=== PATIENT | female | born 1965 | race Caucasian/White ===

== ENCOUNTER 2023-04-14 10:56 | Outpatient (OUT) | payer OTHER, SELFPAY ==
--- NOTE | 2023-04-14 11:10 | MM_ITS ---
Patient: ALIYA CONDON Exam Date: 04/14/2023 : 1965 Gender:F Ordering : ENRIQUE Breayasmany [employer]j [employer] Admission #: [id number] Family : Order #: [id number] CLICK HERE TO VIEW EXAM RADIOLOGY REPORT PROCEDURE: MM TOMOSYNTHESIS SCREENING BI COMPARISON: MG MAMM SCREEN 3D EMY CAD, 04/29/2021. MG MAMM SCREEN 3D EMY CAD, 04/30/2022. INDICATIONS: Screening mammogram Z12.31 Calculator Name NCI Breast Cancer Risk Assessment Tool 5 Year Breast Cancer Risk 0.90% Lifetime Breast Cancer Risk 5.10% Personal Breast Cancer No Personal Ovarian Cancer No Treatments None Family Cancers None LOCATION: [facility] BREAST COMPOSITION: Almost entirely fatty. FINDINGS: DIAGNOSTIC CATEGORY 2--BENIGN FINDING. NO CHANGE FROM COMPARISON. Scattered benign-appearing nodules are present. Scattered benign-appearing calcifications are present. Scattered benign-appearing lymph nodes are present. RIGHT BREAST: No significant suspicious finding. LEFT BREAST: No significant suspicious finding. RECOMMENDATIONS: ROUTINE MAMMOGRAM AND CLINICAL EVALUATION IN 12 MONTHS. PLEASE NOTE: A NORMAL MAMMOGRAM DOES NOT EXCLUDE THE POSSIBILITY OF BREAST CANCER. A CLINICALLY SUSPICIOUS PALPABLE LUMP SHOULD BE BIOPSIED. Dictated by: Ant Ayoub MD on 04/14/2023 at 15:33 Approved by: Ant Ayoub MD on 04/14/2023 at 15:38
[2023-04-14 12:05] LABS: Estimated Average Glucose 114 mg/dL; Glycohemoglobin A1C 5.6 % (4.5-6.2)
[2023-04-14 12:11] LABS: Basophils Percent Auto 0.3 % (0.2-2.0); Eosinophils Absolute Auto 0.2 10^3/uL (0.0-0.7); Eosinophils Percent Auto 2.2 % (0.9-7.0); Hematocrit 42.9 % (36.0-48.0); Hemoglobin 14.1 g/dL (12.0-16.0); Immature Granulocytes Abs Auto 0.03 10^3/uL (0.00-0.03); Immature Granulocytes Pct Auto 0.3 % (0.0-0.5); Lymphocytes Absolute Auto 1.6 10^3/uL (1.2-3.8); Lymphocytes Percent Auto 18.6 % (20.5-60.0); Mean Corpuscular HGB Conc 32.9 g/dL (29.9-35.2); Mean Corpuscular Hemoglobin 29.4 pg (26.7-34.0); Mean Corpuscular Volume 89.6 fL (81.0-99.0); Mean Platelet Volume 12.1 fL (9.5-13.5); Monocytes Absolute Auto 0.7 10^3/uL (0.3-0.8); Monocytes Percent Auto 8.2 % (1.7-12.0); Neutrophils Absolute Auto 6.1 10^3/uL (1.4-6.5); Neutrophils Percent Auto 70.4 % (43.0-75.0); Platelet Count 201 10^3/uL (150-450); Red Blood Count 4.79 10^6/uL (4.20-5.40); Red Cell Distribution Width 15.2 % (11.0-15.0); White Blood Count 8.6 10^3/uL (4.0-11.0)
[2023-04-14 12:38] LABS: Microalbumin Urine Random <1.3 mg/dL (<=30.0)
[2023-04-14 12:42] LABS: Alanine Aminotransferase 26 U/L (14-59); Albumin Globulin Ratio 0.8; Albumin Level 3.7 g/dL (3.4-5.0); Alkaline Phosphatase 99 U/L (46-116); Aspartate Amino Transferase 24 U/L (15-37); BUN Creatinine Ratio 16.5; Bilirubin Total 0.3 mg/dL (0.2-1.0); Calcium 10.3 mg/dL (8.5-10.1); Carbon Dioxide 27.3 mmol/L (21.0-32.0); Chloride 99 mmol/L (98-107); Estimated GFR (African America >60 (>=60); Estimated GFR (Non-African Ame >60 (>=60); Globulin 4.9 g/dL; Glucose 117 mg/dL (74-106); Potassium 4.3 mmol/L (3.5-5.1); Sodium 136 mmol/L (136-145); Total Protein 8.6 g/dL (6.4-8.2)
[2023-04-14 12:48] LABS: Chol HDL Ratio 1.7; Cholesterol 125 mg/dL (<=200); HDL Cholesterol 74 mg/dL (40-60); Thyroid Stimulating Hormone 0.894 uIU/mL (0.358-3.740); Triglycerides 86 mg/dL (<=150); VLDL CHOLESTEROL 17.2 mg/dL
[2023-04-14 12:49] LABS: Bilirubin Urine NEGATIVE (NEGATIVE); Blood Urine NEGATIVE (NEGATIVE); Clarity Urine CLEAR (CLEAR); Color Urine LT. YELLOW (YELLOW); Glucose Urine UA NEGATIVE (NEGATIVE); Ketones Urine NEGATIVE (NEGATIVE); Leukocyte Esterase Urine NEGATIVE (NEGATIVE); Nitrite Urine NEGATIVE (NEGATIVE); Protein Urine NEGATIVE (NEG/TRACE); Urobilinogen Urine 0.2 EU/dL (0.2-1.0); pH Urine 5.5 (5.0-9.0)
[2023-04-14 13:04] LABS: Bacteria Urine NONE SEEN #/HPF (NONE SEEN); Cast Seen? NONE SEEN #/LPF (NONE SEEN); Crystals Seen? None Seen #/HPF (None Seen); Mucus Urine NONE SEEN (NONE SEEN); RBC Urine NONE SEEN #/HPF (0-2); Squamous Epithelial Cell Urine FEW #/LPF (NONE/RARE); WBC Urine NONE SEEN #/HPF (NONE SEEN)
== END 2023-04-14 10:57 ==
LOC: MAMMO 11:00
PROVIDERS: PCP Nurse Practitioner; Visit Provider Nurse Practitioner
DX: Z12.31 Encounter for screening mammogram for malignant neoplasm of breast (principal); E78.5 Hyperlipidemia, unspecified; E11.69 Type 2 diabetes mellitus with other specified complication; J44.9 Chronic obstructive pulmonary disease, unspecified; E66.9 Obesity, unspecified; F41.9 Anxiety disorder, unspecified
CPT/HCPCS: 36415; 77063; 77067; 80053; 80061; 81001; 82043; 83036; 84443; 85025

== ENCOUNTER 2023-04-27 08:48 | Outpatient (OUT) | payer OTHER, SELFPAY ==
--- NOTE | 2023-04-27 09:01 | XR_ITS ---
[address] [address] Patient Name: ALIYA CONDON MRN: [id number] date: 1965 Sex: F Assigned Patient Location: [facility] Current Patient Location: [facility] Accession/Order Number: [id number] Exam Date: 04/27/2023 09:10 Report Date: 04/27/2023 10:27 At the request of: LINK HAMEED Procedure: XR DEXA axial skeleton EXAMINATION: XR DEXA axial skeleton, 04/27/2023 9:10 AM EDT HISTORY: POST MENOPAUSAL Z78.0 COMPARISON: 2018. TECHNIQUE: Dual-energy X-ray absorptiometry (DEXA) bone density study performed for the axial skeleton. HISTORY: POST MENOPAUSAL Z78.0 FINDINGS: Bone mineral density AP spine L1-L4 measures 1.326 g/cm T score 1.0. WHO classification: Normal. Lowest bone mineral density right femoral trochanter measures 0.656 g/sq cm. T score -1.7. WHO classification: Osteopenia IMPRESSION: Osteopenia. Moderate fracture risk Electronically authenticated by: LEANA DAVIDSON Date: 04/27/2023 10:27
[2023-04-27 10:09] LABS: Alanine Aminotransferase 24 U/L (14-59); Albumin Globulin Ratio 0.7; Albumin Level 3.2 g/dL (3.4-5.0); Alkaline Phosphatase 90 U/L (46-116); Anion Gap 11.1; Aspartate Amino Transferase 17 U/L (15-37); BUN Creatinine Ratio 19.8; Bilirubin Total 0.3 mg/dL (0.2-1.0); Calcium 9.5 mg/dL (8.5-10.1); Chloride 99 mmol/L (98-107); Estimated GFR (African America >60 (>=60); Estimated GFR (Non-African Ame >60 (>=60); Globulin 4.4 g/dL; Glucose 135 mg/dL (74-106); Potassium 4.1 mmol/L (3.5-5.1); Sodium 136 mmol/L (136-145); Total Protein 7.6 g/dL (6.4-8.2)
[2023-04-28 11:09] LABS: PTH, Intact 24 pg/mL (15-65)
== END 2023-04-27 08:49 | disposition home or self-care (01) ==
LOC: RAD 08:49
PROVIDERS: PCP Nurse Practitioner; Visit Provider Nurse Practitioner
DX: E83.52 Hypercalcemia (principal); Z78.0 Asymptomatic menopausal state; M85.80 Other specified disorders of bone density and structure, unspecified site
CPT/HCPCS: 36415; 77080; 80053; 82306; 83970

== ENCOUNTER 2023-06-15 09:52 | Outpatient (OUT) | payer OTHER, SELFPAY | END 2023-06-15 09:53 | disposition home or self-care (01) | LOC: LAB 09:54 | PROVIDERS: PCP Nurse Practitioner; Visit Provider Internal Medicine | DX: J44.9 Chronic obstructive pulmonary disease, unspecified (principal) | CPT/HCPCS: 36415; 80198 ==

== ENCOUNTER 2023-08-24 12:07 | Emergency (ER) | payer OTHER, SELFPAY ==
[2023-08-24 12:23] VITALS: BP 122/67; PULSE 101; RESP 20; TEMP 37.4; O2SAT 94; BMI 37.2
--- NOTE | 2023-08-24 12:44 | XR_ITS ---
The [address] [address] Patient Name: ALIYA CONDON MRN: [id number] date: 1965 Sex: F Assigned Patient Location: ED.MAIN Current Patient Location: Accession/Order Number: [id number] Exam Date: 08/24/2023 13:22 Report Date: 08/24/2023 14:09 At the request of: BRAD VASQUEZ Procedure: XR knee standing BI EXAMINATION: XR knee standing BI HISTORY: left knee pain without injury COMPARISON: No relevant comparison available. FINDINGS: RIGHT FINDINGS: BONES: Marked narrowing of the anterior compartment with large periarticular degenerative osteophytes. Moderate narrowing of the medial compartment and mild lateral subluxation of the tibial plateau. No fracture or dislocation. SOFT TISSUES: Large calcifications cephalad to the patella and posterior to the lateral femoral condyle, suspected to be within the joint capsule. OTHER: No joint effusion. LEFT FINDINGS: BONES: Marked narrowing of the anterior and lateral joint spaces with [id number]-yd-[id number] articulation. Lateral subluxation of the tibial plateau in relation to the femoral condyles. No fracture. Small calcifications, possibly bone islands within the distal femoral diaphysis. SOFT TISSUES: Calcifications within the joint capsule OTHER: Large joint effusion. XR/XR knee standing BI IMPRESSION: RIGHT CONCLUSION: 1. Marked degenerative joint disease and large soft tissue calcifications suspected to be within the joint capsule. MRI should be considered for further evaluation. LEFT CONCLUSION: 1. Marked degenerative joint disease enlarged with effusion. MRI should be considered for further evaluation. Electronically authenticated by: MIGUEL MEDEROS Date: 08/24/2023 14:09
--- NOTE | 2023-08-24 12:45 | ED_ITS ---
HPI - Extremity Problem General Chief complaint: Extremity Problem, Nontraumatic Stated complaint: LOWER EXTREMITY PAIN LEFT LEG Time Seen by Provider: 08/24/23 12:21 Source: patient Mode of arrival: Wheelchair Limitations: no limitations History of Present Illness HPI Narrative: yesterday the patient woke with pain and swelling in the left knee. It worsened since then and now the patient is having difficulty standing and walking due to the pain. No injury. She told me that she has bad arthritis and that she developed a blood clot in the lungs in April. She takes blood thinners so they took her off of her anti-inflammatory arthritis medication. She denied any change in activity that might account for the pain. She has swelling of the left knee and pain radiating throughout the joint and into the popliteal area but no lower leg swelling or calf tenderness or popiteal mass/fullness. Related Data Previous Rx's Medication Instructions Recorded tramadol 50 mg tablet 50 mg PO TID PRN pain #14 tabs 08/24/23 Allergies Allergy/AdvReac Type Severity Reaction Status Date / Time No Known Drug Allergies Allergy Verified 08/24/23 12:27 PFSH PFSH Social History Smoking status: Former smoker Exam Narrative Exam Narrative: Nurses notes and vital signs reviewed and patient is not hypoxic. afebrile General: Well-appearing and in no apparent distress. Skin: Warm, dry, no pallor noted. No left LE rash. Cardiovascular: Normal peripheral perfusion. Respiratory: No accessory muscle use or respiratory distress. Lungs are clear to auscultation, no wheezing, rales or rhonchi Musculoskeletal: LEFT KNEE - swelling/effusion with tenderness throughout the left knee and decreased ROM secondary to pain. knee is stable. No erythema or warmth. Left foot and ankle with normal ROM, no calf tenderness, no lower leg edema/swelling Neurological: A&O x4. No cranial nerve dysfunction observed. No truncal ataxia. Moves all extremities. Sensation intact. Psychiatric: Cooperative and interactive. Normal mood and affect. Constitutional Vital Signs, click to edit/add: Last Vital Signs Temp 99.4 F 08/24/23 12:23 Pulse 101 H 08/24/23 12:23 Resp 20 08/24/23 12:23 BP 122/67 08/24/23 12:23 Pulse Ox 94 L 08/24/23 12:23 O2 Del Method Room Air 08/24/23 12:23 Course Vital Signs Vital signs: Vital Signs Temperature 99.4 F 08/24/23 12:23 Pulse Rate 101 H 08/24/23 12:23 Respiratory Rate 20 08/24/23 12:23 Blood Pressure 122/67 08/24/23 12:23 Pulse Oximetry 94 L 08/24/23 12:23 Oxygen Delivery Method Room Air 08/24/23 12:23 Temperature 99.4 F 08/24/23 12:23 Pulse Rate 101 H 08/24/23 12:23 Respiratory Rate 20 08/24/23 12:23 Blood Pressure 122/67 08/24/23 12:23 Pulse Oximetry 94 L 08/24/23 12:23 Oxygen Delivery Method Room Air 08/24/23 12:23 MDM - Extremity (Nontraumatic) MDM Narrative Medical decision making narrative: Weight bearing xrays of the knees obtained, per request of our [facility] orthopedist for patients with atraumatic joint pain. Patient has marked arthritic changes. She was given IM Solumedrol in the ED and will be discharged home with pain meds - ultram - and referral to Dr Berkowitz for follow up. . Imaging Data xr knee: Radiologist's impression: Patient Name: ALIYA CONDON MRN: [facility]:[id number] date: 1965 Sex: F Assigned Patient Location: ED.MAIN Current Patient Location: Accession/Order Number: [id number] Exam Date: 08/24/2023 13:22 Report Date: 08/24/2023 14:09 At the request of: BRAD VASQUEZ Procedure: XR knee standing BI EXAMINATION: XR knee standing BI HISTORY: left knee pain without injury COMPARISON: No relevant comparison available. FINDINGS: RIGHT FINDINGS: BONES: Marked narrowing of the anterior compartment with large periarticular degenerative osteophytes. Moderate narrowing of the medial compartment and mild lateral subluxation of the tibial plateau. No fracture or dislocation. SOFT TISSUES: Large calcifications cephalad to the patella and posterior to the lateral femoral condyle, suspected to be within the joint capsule. OTHER: No joint effusion. LEFT FINDINGS: BONES: Marked narrowing of the anterior and lateral joint spaces with [id number] articulation. Lateral subluxation of the tibial plateau in relation to the femoral condyles. No fracture. Small calcifications, possibly bone islands within the distal femoral diaphysis. SOFT TISSUES: Calcifications within the joint capsule OTHER: Large joint effusion. IMPRESSION: RIGHT CONCLUSION: 1. Marked degenerative joint disease and large soft tissue calcifications suspected to be within the joint capsule. MRI should be considered for further evaluation. LEFT CONCLUSION: 1. Marked degenerative joint disease enlarged with effusion. MRI should be considered for further evaluation. Electronically authenticated by: PAPITO MEDEROS Date: 08/24/2023 14:09 Discharge Plan Discharge Chief Complaint: Extremity Problem, Nontraumatic Clinical Impression: Acute knee pain, Knee osteoarthritis Patient Disposition: Home, Self-Care Time of Disposition Decision: 14:34 Prescriptions / Home Meds: New tramadol 50 mg tablet 50 mg PO TID PRN (Reason: pain) Qty: 14 0RF Instructions: Knee Pain (ED), Arthralgia (ED) Stand Alone Forms: Portal Instructions Referrals: Papito Berkowitz MD [Physician] - 08/29/23 8:30 am
[2023-08-24] MEDS: METHYLPREDNISOLONE SOD SUCC PF 125 MG/2 ML VIAL IM (12:53)
== END 2023-08-24 14:48 | disposition home or self-care (01) ==
PROVIDERS: Emergency Provider Emergency Medicine; PCP Nurse Practitioner
DX: M25.562 Pain in left knee (principal); M17.0 Bilateral primary osteoarthritis of knee; Z87.891 Personal history of nicotine dependence
CPT/HCPCS: 73565; 96372; 99284; J2930

== ENCOUNTER 2023-10-26 14:28 | Outpatient (OUT) | payer OTHER, SELFPAY ==
[2023-10-26 15:57] LABS: Estimated Average Glucose 117 mg/dL; Glycohemoglobin A1C 5.7 % (4.5-6.2)
== END 2023-10-26 14:29 | disposition home or self-care (01) ==
LOC: LAB 14:29
PROVIDERS: PCP Nurse Practitioner; Visit Provider Nurse Practitioner
DX: E11.9 Type 2 diabetes mellitus without complications (principal)
CPT/HCPCS: 36415; 83036

== ENCOUNTER 2023-10-31 07:48 | Emergency (ER) | payer OTHER, SELFPAY ==
[2023-10-31 07:52] VITALS: BP 140/80; PULSE 104; RESP 20; TEMP 36.6; O2SAT 95; BMI 36.9
--- OUTSIDE RECORDS SUMMARY | 2023-10-31 08:21 | XMS_ITS | CCD ---
Author Name Unknown Address [address] [place] [address] Organization [facility] Care Team Providers Care Social Sciences Lecturer Name Role Phone TOSHIA SAM Attending Unavailable TOSHIA SAM Admitting Unavailable SELF, REFERRED Referring Unavailable SELF, REFERRED Primary Care Unavailable AICHHOLZ, STRIPPER SOFT PLASTIC LINK Primary Care Unavailable SAMSA ., CORRINA Consulting Unavailable SAMSA ., CORRINA Admitting Unavailable SAMSA ., CORRINA Attending Unavailable AICHHOLZ, STRIPPER SOFT PLASTIC LINK Attending Unavailable AICHHOLZ, STRIPPER SOFT PLASTIC LINK Consulting Unavailable AICHHOLZ, STRIPPER SOFT PLASTIC LINK Primary Care Unavailable AICHHOLZ, STRIPPER SOFT PLASTIC LINK Admitting Unavailable AICHHOLZ, STRIPPER SOFT PLASTIC LINK Primary Care Unavailable DR MIGUEL MEDEROS Consulting Unavailable SAMSA ., CORRINA Admitting Unavailable SAMSA ., CORRINA Attending Unavailable SAMSA ., CORRINA Consulting Unavailable SAMSA ., CORRINA Attending Unavailable SAMSA ., CORRINA Consulting Unavailable SAMSA ., CORRINA Admitting Unavailable AICHHOLZ, STRIPPER SOFT PLASTIC LINK Primary Care Unavailable AICHHOLZ, STRIPPER SOFT PLASTIC LINK Attending Unavailable DR LEANA AYOUB V Consulting Unavailable AICHHOLZ, STRIPPER SOFT PLASTIC LINK Primary Care Unavailable AICHHOLZ, STRIPPER SOFT PLASTIC LINK Admitting Unavailable AICHHOLZ, STRIPPER SOFT PLASTIC LINK Consulting Unavailable PAY ., DR SALAZAR Admitting Unavailable PAY ., DR SALAZAR Attending Unavailable PAY ., DR SALAZAR Consulting Unavailable AICHHOLZ, STRIPPER SOFT PLASTIC LINK Primary Care Unavailable QUETA .JUAN Consulting Unavailsrinivas e Rastealla, Justine Consulting Unavailable AICHHOLZ, STRIPPER SOFT PLASTIC LINK Primary Care Unavailable PAY ., DR SALAZAR Attending Unavailable PAY ., DR SALAZAR Admitting Unavailable JUAN JOHNSON Consulting Unavailabl e POLICARO, KENDY Consulting Unavailable ZARI, ENRIQUE MAZA Attending Unavailable ZARI, ENRIQUE LINK Consulting Unavailable ZARI, STRIPPER SOFT PLASTIC LINK Primary Care Unavailable ZARI, ENRIQUE MAZA Admitting Unavailable LINK HAMEED Primary Care Physician [phone] SPENCERMisael HASTINGShanie Unavailable TOSHIA SAM Attending Unavailable MARLENE SOTO Attending Unavailable Roby Bob Admitting Unavailabl e Al-MarRoby mohr Attending Unavailabl e OJUKWJoss, Mbanefo Admitting Unavailable OJUKWU Mbanefo Attending Unavailable Ramses Hair Attending Unavailable Moses Fischer Attending Unavailable Al-Roby Ortez Attending Unavailabl e OJUKWJoss, Mbanefo Referring Unavailable Roby Bob Attending Unavailabl e Allergies Allergy Classification Reported Allergen(s) Allergy Type Date of Onset Reaction(s) Facility (1 source) No Known Medication Allergies; Translations: [No Known Medication Allergies] Propensity to adverse reactions (disorder) [facility] Repository Medications Current Medications Medication Drug Class(es) Dates Sig (Normalized) Sig (Original) albuterol 0.833 mg/ml / ipratropium bromide 0.167 mg/ml inhalation solution (5 sources) Anticholinergic, beta2-Adrenergic Agonist Start: 06-17-2023 take 3 mL by inhalation four times daily albuterol-ipratro pium Inh [place] 3 mL UD 3 mL, Inhalation, QID, 60 EA, Refill(s) 0 Start Date: 06/17/23 Status: Ordered apixaban 5 mg oral tablet (9 sources) Factor Xa Inhibitor Start: 06-28-2023 take 1 tablet by mouth twice daily Eliquis 5 mg oral tablet 5 mg = 1 tab(s), Oral, BID, # 180 tab(s), Refills(s) 3, Pharmacy: [facility], 175, cm, 06/28/23 10:58:00 EDT, Height/Length Dosing, 114.6, kg, 06/28/23 10:58:00 EDT, Weight Dosing Start Date: 06/28/23 Status: Ordered Start: 06-17-2023 take 2 tablets by mo uth twice daily, then take 1 tablet by mouth twice daily Eliquis 5 mg oral tablet See Instructions, 2 tab(s) Oral BID x 6 days then 1 tab oral BID x 30 days, # 84 tab(s), Refills(s) 0 Start Date: 06/17/23 Status: Ordered aspirin 81 mg oral tablet (5 sources) Platelet Aggregation Inhibitor, Nonsteroidal Anti-inflammatory Drug Start: 06-17-2023 Aspirin Low Dose 81 mg oral enteric coated tablet Refills(s) 0 Start Date: 06/17/23 Status: Ordered atorvastatin (5 sources) HMG-CoA Reductase Inhibitor Start: 06-17-2023 ATORVASTATIN CALCIUM 40 MG TABLET ATORVASTATIN CALCIUM 40 MG TABLET Start Date: 06/17/23 Status: Ordered busPIRone hydrochloride 15 mg oral tablet (5 sources) Start: 06-17-2023 take 1 tablet by mouth three times daily busPIRone 15 mg Tab 15 mg = 1 tab(s), Oral, TID, # 90 tab(s), Refills(s) 0 Start Date: 06/17/23 Status: Ordered Daily Harvinder oral tablet (5 sources) Start: 06-17-2023 Daily Harvinder oral tablet 1 tab(s), Oral, Daily, 30 tab(s), Refill(s) 0 Start Date: 06/17/23 Status: Ordered dicyclomine hydrochloride 10 mg oral capsule (1 source) Anticholinergic Start: 09-25-2023 End: 10-02-2023 take 1 capsule by mouth four times daily Bentyl 10 mg Cap 10 mg = 1 cap(s), Oral, QID, X 7 day(s), # 28 cap(s), Refills(s) 0, Pharmacy: [facility], 175, cm, 09/25/23 18:25:00 EST, Height/Length Dosing, 121, kg, 09/25/23 18:25:00 EST, Weight Dosing Start Date: 09/25/23 Stop Date: 10/02/23 Status: Ordered DULoxetine 60 mg delayed release oral capsule (5 sources) Serotonin and Norepinephrine Reuptake Inhibitor Start: 06-17-2023 duloxetine 60 mg oral delayed release capsule Refills(s) 0 Start Date: 06/17/23 Status: Ordered fluticasone propionate 0.05 mg/actuat metered dose nasal spray (10 sources) Corticosteroid Start: 06-17-2023 take 2 puff(s) by inhalation twice daily Flovent HFA 110 Aerosol = 2 puff(s), Inhalation, BID, # 12 gram, Refills(s) 0 Start Date: 06/17/23 Status: Ordered Start: 06-17-2023 fluticasone Na margaret 0.05 mg/inh [place] 2 spray(s), Nasal, Daily, 16 gram, Refill(s) 0, each nostril Start Date: 06/17/23 Status: Ordered 120 actuat formoterol fumarate 0.0048 mg/actuat / glycopyrrolate 0.009 mg/actuat metered dose inhaler (5 sources) beta2-Adrenergic Agonist Start: 06-17-2023 take 2 puff(s) by inhalation twice daily Bevespi Aerosphere 9 mcg-4.8 mcg/inh inhalation aerosol 2 puff(s), Inhalation, BID, Refill(s) 11 Start Date: 06/17/23 Status: Ordered furosemide 20 mg oral tablet (5 sources) Loop Diuretic Start: 06-17-2023 take 1 tablet by mouth once daily furosemide 20 mg Tab 20 mg = 1 tab(s), Oral, Daily, # 30 tab(s), Refills(s) 0 Start Date: 06/17/23 Status: Ordered gabapentin 300 mg oral capsule (5 sources) Anti-epileptic Agent Start: 06-17-2023 take 1 capsule by mouth twice daily gabapentin 300 mg Cap 300 mg = 1 cap(s), Oral, BID, # 60 cap(s), Refills(s) 0 Start Date: 06/17/23 Status: Ordered hydroCHLOROthiazide 25 mg / lisinopril 20 mg oral tablet (5 sources) Thiazide Diuretic, Angiotensin Converting Enzyme Inhibitor Start: 06-17-2023 hydrochlorothia zide-lisinopril 25 mg-20 mg Tab 1 tab(s), Oral, Daily, 30 tab(s), Refill(s) 0 Start Date: 06/17/23 Status: Ordered lamoTRIgine 25 mg oral tablet (5 sources) Mood Stabilizer, Anti-epileptic Agent Start: 06-17-2023 take 1 tablet by mouth twice daily lamotrigine 25 mg Tab 25 mg = 1 tab(s), Oral, BID, # 60 tab(s), Refills(s) 0 Start Date: 06/17/23 Status: Ordered pioglitazone 15 mg oral tablet (5 sources) Peroxisome Proliferator Receptor alpha Agonist, Peroxisome Proliferator Receptor gamma Agonist, Thiazolidinedione Start: 06-17-2023 take 1 tablet by mouth once daily pioglitazone 15 mg Tab 15 mg = 1 tab(s), Oral, Daily, # 30 tab(s), Refills(s) 0 Start Date: 06/17/23 Status: Ordered Potassium Chloride (5 sources) Start: 06-17-2023 Potassium Chloride (Nri-Ucnm-Gak 10) 10 mEq oral tablet, extended release Refills(s) 0 Start Date: 06/17/23 Status: Ordered pramipexole dihydrochloride 0.5 mg oral tablet (5 sources) Nonergot Dopamine Agonist Start: 06-17-2023 take 1 tablet by mouth three times daily pramipexole 0.5 mg oral tablet 0.5 mg = 1 tab(s), Oral, TID, # 270 tab(s), Refills(s) 0 Start Date: 06/17/23 Status: Ordered theophylline 300 mg extended release oral tablet (5 sources) Methylxanthine Start: 06-17-2023 take 1 tablet by mouth every twelve hours theophylline 300 mg ER Tab 300 mg = 1 tab(s), Oral, q12hr, # 60 tab(s), Refills(s) 0 Start Date: 06/17/23 Status: Ordered traZODone hydrochloride 50 mg oral tablet (5 sources) Serotonin Reuptake Inhibitor Start: 06-17-2023 take 1 tablet by mouth once daily at bedtime traZODONE 50 mg Tab 50 mg = 1 tab(s), Oral, Once a day (at bedtime), # 30 tab(s), Refills(s) 0 Start Date: 06/17/23 Status: Ordered Ventolin HFA 90 mcg/inh Aerosol-Adpt (5 sources) Start: 06-17-2023 take 1 puff(s) by inhalation four times daily for wheezing Ventolin HFA 90 mcg/inh Aerosol-Adpt 1 puff(s), Inhalation, QID for wheezing, 18 gram, Refill(s) 0 Start Date: 06/17/23 Status: Ordered Zofran ODT 4 mg Tab-Dis (1 source) Start: 09-25-2023 take 1 tablet by mouth every eight hours Ana Maria ODT 4 mg Tab-Dis 4 mg = 1 tab(s), Oral, q8hr, # 12 tab(s), Refills(s) 0, [facility]acy: [facility], 175, cm, 09/25/23 18:25:00 EST, Height/Length Dosing, 121, kg, 09/25/23 18:25:00 EST, Weight Dosing Start Date: 09/25/23 Status: Ordered Completed/Discontinued Medications Medication Drug Class(es) Dates Sig (Normalized) Sig (Original) Insulin Lispro (1 source) Insulin Analog Start: 06-17-2023 End: 06-17-2023 Insulin Lispro Sliding Scale 0-10 Unit(s), Injection-Insulin, SubCutaneous, Start date 06/17/23 7:30:00 EDT Start Date: 06/17/23 Stop Date: 06/17/23 Status: Completed lisinopril 20 mg oral tablet (1 source) Angiotensin Converting Enzyme Inhibitor Start: 06-17-2023 End: 06-17-2023 lisinopril 20 mg Tab 20 mg = 1 tab(s), Tab, Oral, Start date 06/17/23 9:00:00 EDT, 06/17/23 7:57:00 EDT Start Date: 06/17/23 Stop Date: 06/17/23 Status: Completed Problems Active Problems Problem Classification Problem Date Documented Date Episodic/Chronic Abdominal pain (5 sources) Epigastric pain; Translations: [Unspecified abdominal pain] Onset: 03-26-2022 Episodic Anxiety disorders (1 source) Generalized anxiety disorder; Translations: [GENERALIZED ANXIETY DISORDER] Onset: 03-31-2022 Chronic Biliary tract disease (1 source) Cholelithiasis without obstruction; Translations: [Calculus of gallbladder without cholecystitis without obstruction] Onset: 09-25-2023 Episodic Cardiac and circulatory congenital anomalies (2 sources) Malformation of coronary vessels; Translations: [Malformation of coronary vessels] Onset: 12-24-2022 Chronic Cardiac dysrhythmias (1 source) Tachyarrhythmia ; Translations: [Tachycardia, unspecified] Onset: 06-16-2023 Episodic Chronic obstructive pulmonary disease and bronchiectasis (7 sources) Chronic obstructive pulmonary disease with (acute) exacerbation; Translations: [Chronic obstructive pulmonary disease, unspecified] Onset: 01-21-2023 Chronic Diabetes mellitus with complications (4 sources) Type 2 diabetes mellitus with other specified complication; Translations: [TYPE 2 DM W/OTHER SPEC COMPLICATION] Onset: 01-03-2023 Chronic Diabetes mellitus without complication (1 source) Type 2 diabetes mellitus without complication; Translations: [Type 2 diabetes mellitus without complications] Onset: 06-16-2023 Chronic Disorders of lipid metabolism (2 sources) Mixed hyperlipidemia; Translations: [Hyperlipidemia, unspecified] Onset: 03-31-2022 Chronic Essential hypertension (2 sources) Essential (primary) hypertension; Translations: [Essential hypertension] Onset: 02-26-2023 Chronic Mood disorders (1 source) Depressive disorder; Translations: [Depression, unspecified] Onset: 06-16-2023 Chronic Nausea and vomiting (1 source) Nausea and vomiting; Translations: [Nausea with vomiting, unspecified] Onset: 09-25-2023 Episodic Nonspecific chest pain (2 sources) Chest pain; Translations: [Chest pain, unspecified] Onset: 06-16-2023 Episodic Other aftercare (1 source) FPC (current) use of aspirin; Translations: [TRAINING CONSULTANT CURRENT USE OF ASPIRIN] Onset: 02-26-2023 Episodic Other aftercare (1 source) Other halfway (current) drug therapy; Translations: [OTH TRAINING CONSULTANT CURRENT DRUG THERAPY] Onset: 02-26-2023 Episodic Other aftercare (1 source) Long-term current use of drug therapy; Translations: [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] Onset: 06-16-2023 Episodic Other hereditary and degenerative nervous system conditions (1 source) Restless legs syndrome; Translations: [RESTLESS LEGS SYNDROME] Onset: 02-26-2023 Chronic Other lower respiratory disease (4 sources) Shortness of breath; Translations: [SHORTNESS OF BREATH] Onset: 02-23-2023 Episodic Other nutritional; endocrine; and metabolic disorders (1 source) Obesity, unspecified; Translations: [OBESITY UNSPECIFIED] Onset: 03-31-2022 Chronic Other nutritional; endocrine; and metabolic disorders (1 source) Body mass index (BMI) 40.0-44.9, adult; Translations: [BODY MASS INDEX BMI 40.0-44.9 ADULT] Onset: 03-31-2022 Chronic Other nutritional; endocrine; and metabolic disorders (1 source) Obesity; Translations: [Obesity, unspecified] Onset: 06-16-2023 Chronic Pulmonary heart disease (1 source) Other pulmonary embolism without acute cor pulmonale; Translations: [Other pulmonary embolism without acute cor pulmonale] Onset: 06-16-2023 Episodic Respiratory failure; insufficiency; arrest (adult) (3 sources) Dependence on supplemental oxygen; Translations: [Chronic respiratory failure with hypoxia] Onset: 02-05-2023 Chronic Screening and history of mental health and substance abuse codes (5 sources) Personal history of nicotine dependence; Translations: [PERSONAL HISTORY OF NICOTINE DEPEND] Onset: 03-31-2022 Episodic Substance-related disorders (7 sources) Nicotine dependence, cigarettes, uncomplicated; Translations: [Nicotine dependence] Onset: 02-26-2023 Chronic Comment on above: Added secondary to d ocumentation in Social History. Past or Other Problems Problem Classification Problem Date Documented Da te Episodic/Chronic Other aftercare (4 sources) Encounter for therapeutic drug level monitoring; Translations: [ENC THERAPEUTC DRUG LEVL MONITORING] Onset: 11-04-2022 Episodic Other screening for suspected conditions (not mental disorders or infectious disease) (4 sources) Encounter for screening mammogram for malignant neoplasm of breast; Translations: [ENC SCR MAMMO MALIG NEOPLASM BREAST] Onset: 04-30-2022 Episodic Residual codes; unclassified (2 sources) Edema, unspecified; Translations: [Edema, unspecified] Onset: 12-24-2022 Episodic Results Test Name Value Interpretation Reference Range Facility Prescriptions/Work Noteson 1 12-14-2022 Prescriptions/Work Notes [id number]# 1.00TIFF Normal [facility] CT Abdomen/Pelvis w/ Contras ton 09-26-2023 CT Abdomen/Pelvis w/ Contrast Exam Date/Time: 09/25/2023 20:23 EST Reason for Exam: Abdominal pain, acute, nonlocalized;Other (please specify) Report IMPRESSION: NO ACUTE ABDOMINOPELVIC PROCESS. CHOLELITHIASIS. HEPATOMEGALY. EXAM: CT Abdomen/Pelvis w/ Contrast History: Abdominal pain. Nausea and vomiting. Technique: Multiple contiguous axial images were obtained of the abdomen and pelvis from the level of the lung bases through the ischial tuberosities with contrast. Multiplanar reformats were obtained. Delayed images were obtained. Comparison: None available. Findings: Bilateral lung base scarring and/or atelectasis The liver is mildly enlarged measuring approximately 20 cm in craniocaudal length. A few tiny gallstones are present within the physiologically distended gallbladder. No gallbladder wall thickening or pericholecystic fluid. Unchanged small bilateral adrenal nodules. The spleen, stomach, and pancreas are within normal limits. The kidneys enhance uniformly. Simple cyst 3.5 cm right renal cyst. No urinary tract calculi or hydronephrosis. Urinary bladder is well distended. Uterus is present. Abdominal aorta is nonaneurysmal. Atherosclerotic calcification of the abdominal aorta. No retroperitoneal or abdominal/pelvic lymphadenopathy. No small bowel obstruction. No overt colonic mass or pericolonic inflammation. No findings of acute appendicitis. No free fluid or free air. Tiny fat containing periumbilical hernia. No acute osseous abnormality. Degenerative changes of the spine. All CT scans at this facility use dose modulation, iterative reconstruction, and/or weight based dosing when appropriate to reduce radiation dose to as low as reasonably Report achievable. Ordering Provider: Moses Fischer FINAL REPORT Dictated: 09/26/2023 9:23 am Vincenzo Colvin DO Signed (Electronic Signature): 09/26/2023 9:23 am Signed by: Vincenzo Colvin DO Transcribed by: NOHEMY Technologist: VIN Technical Comments GFR (mL/min/1/73m2) 74 Contrast: Isovue 300 Contrast amount in ml's: 100 Normal [facility] Discharge Instructionson Discharge Instructions [id number]# 1.00TIFF Normal [facility] Monitor Recordon 09-26-2023 Monitor Record [id number]# 1.00TIFF Normal [facility] UA With Cult Reflexon 2022 Bilirubin Ql (U) Negative Normal Negative [facility] Comment on above: Performed By: #### 2 [id number], 6265739, 52576748, 28343585, 6582796, 2394435, 36355347, [id number] #### [facility] [address] [place] [address] Clarity (U) CLEAR Normal Clear [facility] Comment on above: Performed By: #### 2 907647, 3431422, 35912048, 60260883, 2848922, 2006951, 46133911, 95264309 #### [facility] [address] [place] [address] Color (U) YELLOW Normal Yellow [facility] Comment on above: Performed By: #### 2 135555, 8154378, 04363583, 70787654, 7333570, 6314286, 38223117, 85081607 #### [facility] [address] [place] [address] Epithelial cells.squamous LM.HPF (Urine sed) [#/Area] 0-2 Normal 0-[address] [facility] Comment on above: Performed By: #### 2 232558, 9045508, 01006405, 34933834, 0030869, 6686221, 36052773, 03091230 #### [facility] [address] [place] [address] Glucose Test strip (U) [Mass/Vol] Negative Normal Negative [facility] Comment on above: Performed By: #### 2 900760, 1993955, 61331751, 05182203, 9153945, 0697512, 02913251, 39897696 #### [facility] [address] [place] [address] Hemoglobin Ql (U) Negative Normal Negative [facility] Comment on above: Performed By: #### 2 880264, 9253362, 99498026, 09082221, 2353889, 2957899, 20313285, 93321953 #### [facility] [address] [place] [address] Ketones (U) [Mass/Vol] Negative Normal Negative Fi [facility] Comment on above: Performed By: #### 2 743344, 5040944, 82803774, 20224953, 5835896, 1630378, 22182457, 12951211 #### [facility] [address] [place] [address] [place].plasma/[place] .RBC (Bld) [Mass ratio] 0-3 Normal 0-3 [facility] Comment on above: Performed By: #### 2 900647, 3223947, 05878514, 01190840, 2576116, 2173460, 27794937, 76406585 #### [facility] [address] [place] [address] Nitrite Ql (U) Negative Normal Negative [facility] Comment on above: Performed By: #### 2 415130, 9197611, 63050487, 65153877, 7976122, 8081920, 88907796, 91788937 #### [facility] [address] [place] [address] pH (U) 6.5 [pH] Invalid Interpretation Code 5.0-9.0 [facility] Comment on above: Performed By: #### 2 464214, 4720785, 63466613, 27975299, 8197524, 5194652, 57176210, 45446871 #### [facility] [address] [place] [address] Protein (U) [Mass/Vol] Negative Normal Negative [facility] Comment on above: Performed By: #### 2 527086, 5392745, 62059580, 59608265, 5607898, 2293730, 94764588, 70100974 #### [facility] [address] [place] [address] Specific gravity (U) [Rel density] <=1.005 Invalid Interpretation Code 1.005-1.030 [facility] Comment on above: Performed By: #### 2 264525, 8558107, 30443382, 27454106, 4004028, 9355504, 50792339, 80808814 #### [facility] [address] [place] [address] Type of Urine collection method Clean Catch Normal [facility] Comment on above: Performed By: #### 2 371557, 0163783, 61313100, 61351905, 1393420, 0083187, 76803527, 12095061 #### [facility] [address] [place] [address] Urobilinogen Qn (U) 0.2 {Nayla'U}/dL Normal 0.0-1.0 [facility] Comment on above: Performed By: #### 2 731610, 7115653, 40255681, 30692936, 2966021, 8100684, 15156630, 29718825 #### [facility] [address] [place] [address] WBC Auto Ql (U) Negative Normal Negative [facility] Comment on above: Performed By: #### 2 112458, 7935141, 04344462, 02495590, 0757007, 1441471, 13380863, 42743223 #### [facility] [address] [place] [address] WBC LM.HPF (Urine sed) [#/Area] 0-5 Normal 0-5 [facility] Comment on above: Performed By: #### 2 551582, 3842008, 36521831, 19999705, 6434283, 0559416, 40678417, 99016815 #### [facility] [address] [place] [address] Auto Diffon 09-25-2023 Basophils/100 WBC (Bld) 0.6 % Normal 0.0-2.0 [facility] Comment on above: Order Comment: Order Added by Discern Expert. Performed By: #### 2 402279, 8009983, 22285204, 2992933, 4378854, 1199748 ####[facility] [address] [place] [address] Basophils/Leukocytes Auto (Bld) [Pure # fraction] 0.1 E9/L Normal 0.0-0.2 [facility] Comment on above: Order Comment: Order Added by Discern Expert. Performed By: #### 2 419291, 6547607, 56038553, 7780129, 0392867, 0755499 ####[facility] [address] [place] [address] Eosinophils/100 WBC (Bld) 1.5 % Normal 0.0-8.0 [facility] Comment on above: Order Comment: Order Added by Discern Expert. Performed By: #### 2 067332, 6642292, 80032663, 9681717, 4992264, 6937723 ####[address] [place] [address] Eosinophils/Leukocytes Auto (Bld) [Pure # fraction] 0.1 E9/L Normal 0.0-0.5 [facility] Comment on above: Order Comment: Order Added by Quinton Expert. Performed By: #### 2 256967, 3246260, 29120841, 7596594, 8584137, 8972994 ####[address] [place] [address] Lymphocytes/100 WBC (Bld) 15.3 % Normal 14.0-50.0 [facility] Comment on above: Order Comment: Order Added by Quinton Expert. Performed By: #### 2 297607, 5679431, 72435228, 3643851, 7872826, 4437608 ####[address] [place] [address] Lymphocytes/Leukocytes Auto (Bld) [Pure # fraction] 1.5 E9/L Normal 1.0-4.0 [facility] Comment on above: Order Comment: Order Added by Quinton Expert. Performed By: #### 2 487009, 4189362, 01630837, 9769323, 2632714, 9163647 ####[address] [place] [address] Monocytes/100 WBC (Bld) 7.4 % Normal 4.0-14.0 [facility] Comment on above: Order Comment: Order Added by Quinton Expert. Performed By: #### 2 654403, 7281209, 65007180, 1702427, 7534150, 5223122 ####[address] [place] [address] Monocytes/Leukocytes Auto (Bld) [Pure # fraction] 0.7 E9/L Normal 0.2-1.0 [facility] Comment on above: Order Comment: Order Added by Discern Expert. Performed By: #### 2 710101, 3626299, 50132545, 0886622, 4839737, 1771691 ####[address] [place] [address] Neutrophils/100 WBC (Bld) 75.2 % High 36.0-75.0 [facility] Comment on above: Order Comment: Order Added by Discern Expert. Performed By: #### 2 507802, 3048321, 21470729, 0744083, 8328966, 5791474 ####[address] [address] Neutrophils/Leukocytes Auto (Bld) [Pure # fraction] 7.1 E9/L Normal 2.0-7.5 [facility] Comment on above: Order Comment: Order Added by Discern Expert. Performed By: #### 2 923908, 5597928, 84797849, 6276928, 6209123, 4811015 ####[address] [place] [address] BMPon 09-25-2023 Creatinine [Mass/Vol] 0.9 mg/dL Normal 0.5-1.3 [facility] Comment on above: Performed By: #### 2 368650, 9740995, 57852782, 8965743, 0054534, 0765952 ####[address] [place] [address] Urea nitrogen [Mass/Vol] 20 mg/dL Normal 5-21 [facility] Comment on above: Performed By: #### 2 145130, 2093686, 03289510, 7541951, 6590155, 6851285 ####[address] [place] [address] Urea nitrogen/Creatinine [Mass ratio] 22 No Units High 10-20 [facility] Comment on above: Performed By: #### 2 874822, 3813162, 30920303, 8956712, 8415786, 9192787 ####[facility] [address] [place] [address] Anion gap [Moles/Vol] 10 mmol/L Normal 6-16 [facility] Comment on above: Performed By: #### 2 070805, 2391153, 71346212, 6686909, 4043387, 2433848 ####[facility] [address] [place] [address] Calcium [Mass/Vol] 10.4 mg/dL Normal 8.9-11.1 [facility] Comment on above: Performed By: #### 2 572035, 7689636, 25160118, 0805391, 4609418, 6548660 ####[facility] [address] [place] [address] Chloride [Moles/Vol] 101 mmol/L Normal 101-111 [facility] Comment on above: Performed By: #### 2 462106, 4176770, 86267171, 7068320, 6077350, 3802424 ####[facility] [address] [place] [address] CO2 [Moles/Vol] 27 mmol/L Normal 21-31 [facility] Comment on above: Performed By: #### 2 509851, 3643461, 21674255, 1855545, 7127098, 8978060 ####[facility] [address] [place] [address] Glucose [Mass/Vol] 155 mg/dL Normal 55-199 [facility] Comment on above: Result Comment: If t his glucose result represents a fasting glucose, interpretation should refer to the following reference range: 55-99 mg/dL Performed By: #### 2 008358, 8845265, 01384349, 8262916, 6924214, 0604473 ####[facility] [address] [place] [address] Potassium [Moles/Vol] 4.0 mmol/L Normal 3.5-5.3 [facility] Comment on above: Performed By: #### 2 065601, 1456111, 81176356, 9543091, 6383148, 6160603 ####[facility] [address] [place] [address] Sodium [Moles/Vol] 134 mmol/L Low 135-145 [facility] Comment on above: Performed By: #### 2 042191, 4974530, 60239313, 3016095, 7242262, 0233533 ####[address] [address] CBC w/ Auto Diffon Erythrocyte distribution width (RBC) [Ratio] 15.3 % High 10.9-14.2 [facility] Comment on above: Performed By: #### 2 930162, 9295614, 34109848, 2255592, 1999934, 4965292 ####[address] [place] [address] Hematocrit (Bld) [Volume fraction] 38.4 % Normal 34.0-46.0 [facility] Comment on above: Performed By: #### 2 009888, 9721740, 62912740, 1252767, 8694461, 6777550 ####[address] [place] [address] Hemoglobin (Bld) [Mass/Vol] 13.0 g/dL Normal 12.0-16.0 [facility] Comment on above: Performed By: #### 2 747793, 3407666, 35516644, 0337554, 4182290, 2189812 ####[address] [place] [address] MCH (RBC) [Entitic mass] 29.4 pg Normal 27.0-34.0 [facility] Comment on above: Performed By: #### 2 967275, 6541633, 03403028, 3754239, 3944277, 3540339 ####[address] [place] [address] MCHC (RBC) [Mass/Vol] 33.9 g/dL Normal 31.4-36.0 [facility] Comment on above: Performed By: #### 2 026625, 6974597, 86787928, 2486511, 6904815, 9990936 ####[address] [address] MCV (RBC) [Entitic vol] 86.6 fL Normal 80.0-100.0 [facility] Comment on above: Performed By: #### 2 062997, 5276464, 03009342, 2372232, 0144586, 0030155 ####[address] [address] Platelet mean volume (Bld) [Entitic vol] 9.5 fL Normal 6.4-10.8 [facility] Comment on above: Performed By: #### 2 371756, 0988715, 01144493, 0480615, 2039985, 4322932 ####[address] [address] Platelets (Bld) [#/Vol] 207.0 E9/L Normal 150.0-500.0 [facility] Comment on above: Performed By: #### 2 349150, 6628912, 71329090, 3963778, 9797196, 9253136 ####[address] [address] RBC (Bld) [#/Vol] 4.4 E12/L Normal 4.3-5.9 [facility] Comment on above: Performed By: #### 2 879750, 9540090, 04526848, 3312298, 1748431, 6968080 ####[address] [address] WBC corrected for nucl RBC Auto (Bld) [#/Vol] 9.5 E9/L Normal 4.0-11.0 [facility] Comment on above: Performed By: #### 2 889982, 0464385, 99462517, 5919504, 5343647, 0648443 ####[facility] [address] [place] [address] CHEMISTRYOrdered By: SYSTEM SYSTEM on 09-25-2023 Albumin [Mass/Vol] 3.9 g/dL Normal 3.3 - 5.0 gm/dL [facility] Albumin/Globulin [Mass ratio] 1.0 {ratio} Low 1.1 - 2.2 [facility] ALP [Catalytic activity/Vol] 66 [iU]/d Normal 21 - 98 Int._Unit/L [facility] ALT No additional P-5'-P [Catalytic activity/Vol] 25 [iU]/d Normal 6 - 46 Int._Unit/L [facility] Anion gap [Moles/Vol] 10 mmol/L Normal 6 - 16 mEq/L [facility] AST [Catalytic activity/Vol] 25 [iU]/d Normal 5 - 43 Int._Unit/L [facility] Bilirubin [Mass/Vol] 0.2 mg/dL Normal 0.0 - 1 .1 mg/dL [facility] Bilirubin.direct [Mass/Vol] 0.1 mg/dL Normal 0.1 - 0.4 mg/dL [facility] Bilirubin.indirect [Mass or moles/Vol] 0.1 mg/dL Normal 0.1 - 0.9 mg/dL [facility] Calcium [Mass/Vol] 10.4 mg/dL Normal 8.9 - 11. 1 mg/dL [facility] Chloride [Moles/Vol] 101 mmol/L Normal 101 - 1 11 mmol/L [facility] CO2 [Moles/Vol] 27 mmol/L Normal 21 - 31 mmol/L [facility] Creatinine [Mass/Vol] 0.9 mg/dL Normal 0.5 - 1.3 mg/dL [facility] GFR/1.73 sq M.predicted among non-blacks MDRD (S/P/Bld) [Vol rate/Area] 74 mL/min/1.73 m2 Normal >=59mL/min/1 .73 m2 [facility] Comment on above: Interpretive Data: C hronic kidney disease could be indicated at eGFR's of less than 60 mL/min/1.73m2. Kidney failure is indicated at less than 15 mL/min/1.73m2. Globulin (S) [Mass/Vol] 4.0 g/dL Normal 1.4 - 4.0 gm/dL [facility] Glucose [Mass/Vol] 155 mg/dL Normal 55 - 199 mg/dL [facility] Comment on above: Interpretive Data: I f this glucose result represents a fasting glucose, interpretation should refer to the following reference range: 55-99 mg/dL Lipase [Catalytic activity/Vol] 39 U/L Normal 13 - 58 unit/L [facility] Potassium [Moles/Vol] 4.0 mmol/L Normal 3.5 - 5.3 mmol/L [facility] Protein [Mass/Vol] 7.9 g/dL High 6.0 - 7.8 gm/dL [facility] Sodium [Moles/Vol] 134 mmol/L Low 135 - 145 mmol/L [facility] Urea nitrogen [Mass/Vol] 20 mg/dL Normal 5 - 21 mg/dL [facility] Remisol Urea nitrogen/Creatinine [Mass ratio] 22 mg/mg High 10 - 20 [facility] Consent for Treatmenton 09-01 Consent for Treatment [id number] Normal [facility] ED Clinical Summaryon 2022 ED Clinical Summary [address] [place] [id number] ED Clinical Summary Person Information Name: SIS MOORE [place] Age: 57 Years : 1965 Sex: Female Language: Citizen Of [place] PCP: LINK HAMEED CNP Marital Status: Visit Id: Visit Reason: Vomiting; Nausea; Abdominal pain; STOMACH PAIN, NOSE BLEED - ON THINNERS Speciality: Acuity: 3 Enc Type: Emergency Med Service: Emergency Arrival: 09/25/2023 18:09:44 Discharge: 09/25/2023 21:57:36 LOS: 000 03:48 Checkin: 09/25/2023 18:09:44 Checkout: 09/25/2023 21:57:36 Dispo Type: Home (Routine DC) EVENTS: Event Name Event Status Request Date/Time Start Date/Time Complete Date/Time Arrive Complete 09/25/2023 18:09:44 09/25/2023 18:09:44 09/25/2023 18:09:44 Document Home Meds Request 09/25/2023 18:09:44 Triage Complete 09/25/2023 18:09:44 09/25/2023 18:25:42 09/25/2023 18:25:42 Registration Complete 09/25/2023 18:12:44 09/25/2023 18:12:44 09/25/2023 18:12:44 Reg Complete Request 09/25/2023 18:12:44 Reg Bed Request Complete 09/25/2023 18:12:44 09/25/2023 18:12:44 09/25/2023 18:12:44 Pending Labs Collected 09/25/2023 18:26:14 Lab Collected 09/25/2023 18:26:14 Urine Collect Collected 09/25/2023 18:26:14 Bed Assign Complete 09/25/2023 18:36:59 09/25/2023 18:36:59 09/25/2023 18:36:59 Dr Exam Complete 09/25/2023 18:36:59 09/25/2023 19:14:21 09/25/2023 19:14:21 RN Exam Complete 09/25/2023 18:36:59 09/25/2023 19:13:49 09/25/2023 19:13:49 Pending Labs Complete 09/25/2023 18:54:11 09/25/2023 18:54:11 09/25/2023 18:54:18 Lab Complete 09/25/2023 18:54:11 09/25/2023 18:54:11 09/25/2023 18:54:18 Pending Labs Complete 09/25/2023 18:54:39 09/25/2023 18:54:39 09/25/2023 19:10:00 Lab Complete 09/25/2023 18:54:39 09/25/2023 18:54:39 09/25/2023 19:10:00 Registration Request 09/25/2023 19:14:21 Meds Admin Complete 09/25/2023 19:34:29 09/25/2023 19:59:13 CT Complete 09/25/2023 19:34:29 09/25/2023 20:00:56 09/25/2023 20:23:48 Meds Admin Request 09/25/2023 19:49:07 Discharge Complete 09/25/2023 21:47:29 09/25/2023 21:57:44 09/25/2023 21:57:44 Transfer Complete 09/25/2023 21:57:44 09/25/2023 21:57:44 09/25/2023 21:57:44 ADDRESS: [address] [place] [address] [address] [facility] [phone] PHYS DOC NOTES: MEDICAL INFORMATION: Prescriptions Given: [facility], [address] [place], [place] [id number], [phone] dicyclomine (Bentyl 10 mg Cap) 1 Capsules By Mouth 4 times a day for 7 Days. Refills: 0. ondansetron (Zofran ODT 4 mg Tab-Dis) 1 Tablets By Mouth every 8 hours. Refills: 0. Medications to Continue with No Changes Other Medications albuterol (Ventolin HFA 90 mcg/inh Aerosol-Adpt) 1 Puffs Inhalation 4 times a day as needed for wheezing. albuterol-ipratropium (albuterol-ipratropiu m Inh Debby 3 mL UD) 3 Milliliter Inhalation 4 times a day. apixaban (Eliquis 5 mg oral tablet) 2 tab(s) Oral BID x 6 days then 1 tab oral BID x 30 days. Refills: 0. apixaban (Eliquis 5 mg oral tablet) 1 Tablets By Mouth 2 times a day. Refills: 3. aspirin (Aspirin Low Dose 81 mg oral enteric coated tablet) busPIRone (busPIRone 15 mg Tab) 1 Tablets By Mouth 3 times a day. duloxetine (duloxetine 60 mg oral delayed release capsule) fluticasone (Flovent HFA 110 Aerosol) 2 Puffs Inhalation 2 times a day. fluticasone nasal (fluticasone Nasal 0.05 mg/inh [place]) 2 Sprays Nasal Inhalation every day. each nostril. formoterol-glycopyrro late (Bevespi Aerosphere 9 mcg-4.8 mcg/inh inhalation aerosol) 2 Puffs Inhalation 2 times a day. furosemide (furosemide 20 mg Tab) 1 Tablets By Mouth every day. gabapentin (gabapentin 300 mg Cap) 1 Capsules By Mouth 2 times a day. hydrochlorothiazide-l isinopril (hydrochlorothiazide- lisinopril 25 mg-20 mg Tab) 1 Tablets By Mouth every day. lamotrigine (lamotrigine 25 mg Tab) 1 Tablets By Mouth 2 times a day. Misc Prescription (ATORVASTATIN CALCIUM 40 MG TABLET) 0. multivitamin (Daily Harvinder oral tablet) 1 Tablets By Mouth every day. pioglitazone (pioglitazone 15 mg Tab) 1 Tablets By Mouth every day. potassium chloride (Potassium Chloride (Dvu-Uluz-Rzb 10) 10 mEq oral tablet, extended release) pramipexole (pramipexole 0.5 mg oral tablet) 1 Tablets By Mouth 3 times a day. theophylline (theophylline 300 mg ER Tab) 1 Tablets By Mouth every 12 hours. trazodone (traZODONE 50 mg Tab) 1 Tablets By Mouth once a day (at bedtime). PATIENT EDUCATION INFORMATION: Instructions: Cholelithiasis Follow up: With: Address: When: [facility] [address] [place] [address] 3, [address], [address] [place] [address] [phone] Business (1) In 3 days 09/28/2023 With: Address: When: [facility] [address] [place], [place] [phone] Business (1) In 3 days DIAGNOSIS: AP (abdominal pain); Cholelithiasis; N&V (nausea and vomiting) Normal [facility] ED Note-Physicianon 09-25-20 23 ED Note-Physician Basic Information Time Seen: Moses Fischer DO 09/25/2023 19:14 Chief Complaint pt c\o abd pain and NV x2 hours History of Present Illness HPI: Patient is a 57-year-old female past medical history of COPD on oxygen, PE on Eliquis, and CHF who presents the ED for abdominal pain nausea and vomiting. Patient states this for started 2 hours ago and has been constant. The pain is across her upper abdomen and does not radiate. She has now developed nausea and several episodes of nonbloody emesis. She denies any change in bowel movements. She denies any urinary symptoms. She denies any fevers that she is aware of. She has never had abdominal pain like this in the past. ROS: Pertinent review of systems conducted and is negative except as noted above. Physical exam: General: nontoxic appearing and in no distress HEENT: Mucous membranes moist Neuro: awake and alert Neck: supple, trachea midline Card: Heart regular rate and rhythm no murmur Resp: Lungs clear to auscultation no wheeze or rhonchi Abd: Soft and nondistended. Tenderness in bilateral upper quadrants worse on the right. No rebound or guarding. Ext: No gross deformity or edema Physical Exam Vitals & Measurements T: 36.8 ?C(Oral) HR: 111(Peripheral) RR: 24 BP: 163/75 SpO2: 97% HT: 175 cm WT: 121 kg BMI: 39.51 Medical Decision Making MEDICAL DECISION MAKING Number and Complexity of Problems Differential Diagnosis: [] [facility] Data External documents reviewed: N/A My EKG interpretation: Noted in chart if applicable My CT interpretation: N/A My X-ray interpretation: Noted in chart if applicable My Ultrasound interpretation: N/A Decision rules/scores evaluated: N/A Discussed with: N/A Treatment and Disposition ED Course: Patient is nontoxic-appearing in no distress. She does have some upper abdominal pain that is worse in the right upper quadrant. Will obtain a CT of the abdomen pelvis as well as blood work and urinalysis. Patient was given a dose of morphine and Zofran for symptoms. Blood work is overall reassuring. The CT of the abdomen and pelvis is significant for distended gallbladder with multiple tiny stones. There is a tiny fat-containing umbilical hernia. Small adrenal nodules. On my reexamination patient is feeling much better after the medications. We discussed the diagnosis of cholelithiasis. We discussed dietary modification and we will give her a prescription for Zofran and Bentyl. We will give further information for the surgery clinic should she have continuing symptoms. Will also have her follow-up with her primary care physician. Patient states understanding agreement this plan was discharged stable condition. Shared decision making: As above Code status: N/A Assessment/Plan AP (abdominal pain) (R10.9: Unspecified abdominal pain) Cholelithiasis (K80.20: Calculus of gallbladder without cholecystitis without obstruction) N&V (nausea and vomiting) (R11.2: Nausea with vomiting, unspecified) Orders: dicyclomine, 10 mg = 1 cap(s), Oral, QID, X 7 day(s), # 28 cap(s), Refills(s) 0, Pharmacy: [facility], 175, cm, 09/25/23 18:25:00 EST, Height/Length Dosing, 121, kg, 09/25/23 18:25:00 EST, Weight Dosing morphine, 4 mg = 1 mL, Injection, IV Push, Once, Stop date 09/25/23 19:34:00 EST, STAT, Start date 09/25/23 19:34:00 EST, 09/25/23 19:34:00 EST ondansetron, 4 mg = 2 mL, Injection, IV Push, Once, Stop date 09/25/23 19:33:00 EST, STAT, Start date 09/25/23 19:33:00 EST, 09/25/23 19:33:00 EST ondansetron, 4 mg = 1 tab(s), Oral, q8hr, # 12 tab(s), Refills(s) 0, Pharmacy: [facility], 175, cm, 09/25/23 18:25:00 EST, Height/Length Dosing, 121, kg, 09/25/23 18:25:00 EST, Weight Dosing Sodium Chloride 0.9% intravenous solution 500 mL, 500 mL, IV, 500 mL/hr, STAT, Start date 09/25/23 19:49:00 EST, 1 hour(s), Total volume (mL): 500, Bolus Dose: 500 mL, 121 kg, 2.43, m2 CT Abdomen/Pelvis w/ Contrast Medications Administered Given Sodium Chloride 0.9% IV Debby 500 mL 500 mL, 500 mL, IV morphine 4 mg/mL Inj, 4 mg, IV Push Zofran 4 mg/2 mL Injection, 4 mg, IV Push Disposition Plan Discharge Prescription List Prescriptions Bentyl 10 mg Cap, 10 mg= 1 cap(s), Oral, QID Zofran ODT 4 mg Tab-Dis, 4 mg= 1 tab(s), Oral, q8hr Follow-up With When Contact Information Trauma Clinic In 3 days 09/28/2023 EST [address] [facility] 3, [address]nd Floor, [address] [place] [phone] Business (1) Additional Instructions: [facility] In 3 days [address] [place] [phone] Business (1) Additional Instructions: Patient Education Cholelithiasis Problem List/Past Medical History Ongoing Smoker Historical No qualifying data Procedure/Surgical History delivery (05/05/1987), delivery (06/20/1984), Cyst, Knee. Medications Inpatient morphine 4 mg/mL Inj, 4 mg= 1 mL, IV Push, Once Zofran 4 mg/2 mL Injection, 4 mg= 2 mL, IV Push, Once Home albuterol- (more content not included)... Normal [facility] Comment on above: Result Comment: Elec tronically Signed By: Moses Fischer DO\.br\Date and Time Signed: 09/25/23 21:52 EST ED Patient Education Noteon 09-25-2023 ED Patient Education Note Gastroenterology Cholelithiasis Cholelithiasis is a disease in which gallstones form in the gallbladder. The gallbladder is an organ that stores bile. Bile is a fluid that helps to digest fats. Gallstones begin as small crystals and can slowly grow into stones. They may cause no symptoms until they block the gallbladder duct, or cystic duct, when the gallbladder tightens (contracts) after food is eaten. This can cause pain and is known as a gallbladder attack, or biliary colic. There are two main types of gallstones: ? Cholesterol stones. These are the most common type of gallstone. These stones are made of hardened cholesterol and are usually yellow-green in color. Cholesterol is a fat-like substance that is made in the liver. ? Pigment stones. These are dark in color and are made of a red-yellow substance, called bilirubin,that forms when hemoglobin from red blood cells breaks down. What are the causes? This condition may be caused by an imbalance in the different parts that make bile. This can happen if the bile: ? Has too much bilirubin. This can happen in certain blood diseases, such as sickle cell anemia. ? Has too much cholesterol. ? Does not have enough bile salts. These salts help the body absorb and digest fats. In some cases, this condition can also be caused by the gallbladder not emptying completely or often enough. This is common during . What increases the risk? The following factors may make you more likely to develop this condition: ? Being female. ? Having multiple pregnancies. Health care providers sometimes advise removing diseased gallbladders before future pregnancies. ? Eating a diet that is heavy in fried foods, fat, and refined carbohydrates, such as white bread and white rice. ? Being obese. ? Being older than age 40. ? Using medicines that contain female hormones (estrogen) for a long time. ? Losing weight quickly. ? Having a family history of gallstones. ? Having certain medical problems, such as: ? Diabetes mellitus. ? Cystic fibrosis. ? Crohn's disease. ? Cirrhosis or other long-term (chronic) liver disease. ? Certain blood diseases, such as sickle cell anemia or leukemia. What are the signs or symptoms? In many cases, having gallstones causes no symptoms. When you have gallstones but do not have symptoms, you have silent gallstones. If a gallstone blocks your bile duct, it can cause a gallbladder attack. The main symptom of a gallbladder attack is sudden pain in the upper right part of the abdomen. The pain: ? Usually comes at night or after eating. ? Can last for one hour or more. ? Can spread to your right shoulder, back, or chest. ? Can feel like indigestion. This is discomfort, burning, or fullness in your upper abdomen. If the bile duct is blocked for more than a few hours, it can cause an infection or inflammation of your gallbladder (cholecystitis), liver, or pancreas. This can cause: ? Nausea or vomiting. ? Bloating. ? Pain in your abdomen that lasts for 5 hours or longer. ? Tenderness in your upper abdomen, often in the upper right section and under your rib cage. ? Fever or chills. ? Skin or the white parts of your eyes turning yellow (jaundice). This usually happens when a stone has blocked bile from passing through the common bile duct. ? Dark urine or light-colored stools. How is this diagnosed? This condition may be diagnosed based on: ? A physical exam. ? Your medical history. ? Ultrasound. ? CT scan. ? MRI. You may also have other tests, including: ? Blood tests to check for signs of an infection or inflammation. ? Cholescintigraphy, or HIDA scan. This is a scan of your gallbladder and bile ducts (biliary system) using non-harmful radioactive material and special cameras that can see the radioactive material. ? Endoscopic retrograde cholangiopancreatogra m. This involves inserting a small tube with a camera on the end (endoscope) through your mouth to look at bile ducts and check for blockages. How is this treated? Treatment for this condition depends on the severity of the condition. Silent gallstones do not need treatment. Treatment may be needed if a blockage causes a gallbladder attack or other symptoms. Treatment may include: ? Home care, if symptoms are not severe. ? During a simple gallbladder attack, stop eating and drinking for 12?24 hours (except for water and clear liquids). This helps to cool down your gallbladder. After 1 or 2 days, you can start to eat a diet of simple or clear foods, such as broths and crackers. ? You may also need medicines for pain or nausea or both. ? If you have cholecystitis and an infection, you will need antibiotics. ? A hospital stay, if needed for pain control or for cholecystitis with severe infection. ? Cholecystectomy, or surgery to remove your gallbladder. This is the most common treatment if all other treatments have not worked. ? Medicines to break (more content not included)... Normal [facility] ED Patient Summaryon 023 ED Patient Summary [place] [id number] Patient Discharge Instructions Person Information Name: SIS MOORE Age: 57 Years Arrival Date: 09/25/2023 18:09:44 Discharge Diagnosis: AP (abdominal pain); Cholelithiasis; N&V (nausea and vomiting) Primary Care Physician: LINK HAMEED CNP Provider Information Primary Provider: Moses Fischer DO Advanced Data Capture Clerk:None The exam and treatment you received in the Emergency Department were for an urgent problem and are not intended as complete care. It is important that you follow up with a doctor, nurse practitioner, or physician?s zoning assistant for ongoing care. If your symptoms become worse or you do not improve as expected and you are unable to reach your usual health care provider, you should return to the Emergency Department. We are available 24 hours a day. SIS MOORE has been given the following list of patient education materials, prescriptions and follow-up instructions: Follow-up Instructions: With: Address: When: [facility] [address] [facility] [address], [address] [place] [phone] Business (1) In 3 days 09/28/2023 With: Address: When: [facility] [address] [place], [place] [phone] Business (1) In 3 days In the event that this physician does not participate in your insurance network, please consult with your insurance company to find a nearby participating provider. Patient Education Materials: Cholelithiasis A MESSAGE TO ALL PATIENTS REGARDING OPIOIDS PRESCRIPTION OPIOIDS: WHAT YOU NEED TO KNOW Prescription opioids can be used to help relieve jwpxkqqu-xs-xufqdy pain and are often prescribed following a surgery or injury, or for certain health conditions. These medications can be an important part of the treatment but also come with serious risks. It is important to work with your healthcare provider to make sure you are getting the safest, most effective care. WHAT ARE THE RISKS AND SIDE EFFECTS OF OPIOID USE? Prescription opioids carry serious risks of addiction and overdose, especially with prolonged use. An opioid overdose, often marked by slowed breathing, can cause sudden . The use of prescription opioids can have a number of side effects as well, even when taken as directed: ? Tolerance?meaning you might need to take more of the medication for the same pain relief ? Physical dependence?meaning you have symptoms of withdrawal when a medication is stopped ? Increased sensitivity to pain ? Constipation ? Nausea, vomiting, and dry mouth ? Sleepiness and dizziness ? Confusion ? Depression ? Low levels of testosterone that can result in lower sex drive, energy, and strength ? Itching and sweating RISKS ARE GREATER WITH: ? History of drug misuse, substance use disorder, or overdose ? Mental health conditions (such as depression or anxiety) ? Sleep apnea ? Older age (65 years and older) ? Avoid alcohol while taking prescription opioids. Also, unless specifically advised by your health care provider, medications to avoid include: ? Benzodiazepines (such as Xanax or Valium) ? Muscle relaxants (such as Soma or Flexeril) ? Hypnotics (such as Ambien or Lunesta) ? Other prescription opioids KNOW YOUR OPTIONS Talk to your health care provider about ways to manage your pain that don?t involve prescription opioids. Some of these options may actually work better and have fewer risks and side effects. Options may include: ? Pain relievers such as acetaminophen, ibuprofen, and naproxen ? Some medication that are also used for depression or seizures ? Physical therapy and exercise ? Cognitive behavioral therapy, a psychological, goal-directed approach, in which patients learn how to modify physical, behavioral, and emotional triggers of pain and stress. IF YOU ARE PRESCRIBED OPIOIDS FOR PAIN: ? Never take opioids in greater amounts or more often than prescribed. ? Follow up with your primary health care provider. o Work together to create a plan on how to manage your pain. o Talk about ways to help manage your pain that don?t involve prescription opioids. o Talk about any and all concerns and side effects. ? Help prevent misuse and abuse o Never sell or share prescription opioids. o Never use another person?s prescription opioids. ? Store prescription opioids in a secure place and out of reach of others (this may include visitors, children, friends, and family). ? Safely dispose of unused prescription opioids: Find your community drug take-back program or your pharmacy mail-back program, or flush them down the toilet, following guidance from the Food and Drug Administration (www.fda.gov/Drugs/Re sourcesForYou). ? Visit www.cdc.gov/drugoverd ose to learn about the risks of opioids abuse and overdos (more content not included)... Normal [facility] HEMATOLOGYOrdered By: SYSTEM SYSTEM on 09-25-2023 Basophils/100 WBC (Bld) 0.6 % Normal 0.0 - 2.0 % [facility] HemeAutoSS Basophils/Leukocytes Auto (Bld) [Pure # fraction] 0.1 E9/L Normal 0.0 - 0.2 E9/L [facility] HemeAutoSS Eosinophils/100 WBC (Bld) 1.5 % Normal 0.0 - 8.0 % [facility] HemeAutoSS Eosinophils/Leukocytes Auto (Bld) [Pure # fraction] 0.1 E9/L Normal 0.0 - 0.5 E9/L [facility] HemeAutoSS Lymphocytes/100 WBC (Bld) 15.3 % Normal 14.0 - 50.0 % [facility] HemeAutoSS Lymphocytes/Leukocytes Auto (Bld) [Pure # fraction] 1.5 E9/L Normal 1.0 - 4.0 E9/L [facility] HemeAutoSS Monocytes/100 WBC (Bld) 7.4 % Normal 4.0 - 14.0 % [facility] HemeAutoSS Monocytes/Leukocytes Auto (Bld) [Pure # fraction] 0.7 E9/L Normal 0.2 - 1.0 E9/L [facility] HemeAutoSS Neutrophils/100 WBC (Bld) 75.2 % High 36.0 - 75.0 % [facility] HemeAutoSS Neutrophils/Leukocytes Auto (Bld) [Pure # fraction] 7.1 E9/L Normal 2.0 - 7.5 E9/L [facility] HemeAutoSS HEMATOLOGYOrdered By: Rula Sanders on 09-25-2023 Erythrocyte distribution width (RBC) [Ratio] 15.3 % High 10.9 - 14.2 % [facility] HemeAutoSS Hematocrit (Bld) [Volume fraction] 38.4 % Normal 34.0 - 46.0 % [facility] HemeAutoSS Hemoglobin (Bld) [Mass/Vol] 13.0 g/dL Normal 12.0 - 16.0 gm/dL [facility] HemeAutoSS MCH (RBC) [Entitic mass] 29.4 pg Normal 27.0 - 34.0 pg [facility] HemeAutoSS MCHC (RBC) [Mass/Vol] 33.9 g/dL Normal 31.4 - 36.0 gm/dL [facility] HemeAutoSS MCV (RBC) [Entitic vol] 86.6 fL Normal 80.0 - 100.0 fL [facility] HemeAutoSS Platelet mean volume (Bld) [Entitic vol] 9.5 fL Normal 6.4 - 10.8 fL [facility] HemeAutoSS Platelets (Bld) [#/Vol] 207.0 E9/L Normal 150.0 - 500.0 E9/L [facility] HemeAutoSS RBC (Bld) [#/Vol] 4.4 E12/L Normal 4.3 - 5.9 E12/L [facility] HemeAutoSS WBC corrected for nucl RBC Auto (Bld) [#/Vol] 9.5 E9/L Normal 4.0 - 11.0 E9/L [facility] HemeAutoSS Hep Func Panelon 09-25-2023 Albumin [Mass/Vol] 3.9 g/dL Normal 3.3-5.0 [facility] Comment on above: Performed By: #### 2 390279, 3546234, 75271334, 6291960, 7428268, 6658109 ####[facility] [address] [place] [address] Albumin/Globulin (S) [Mass conc ratio] 1.0 Low 1.1-2.2 [facility] Comment on above: Performed By: #### 2 552419, 0168026, 58893279, 8132894, 7790274, 3902699 ####[facility] [address] [place] [address] ALP [Catalytic activity/Vol] 66 Int._Unit/L Normal 21-98 [facility] Comment on above: Performed By: #### 2 964558, 7607579, 83439025, 0358608, 5993190, 0518604 ####[facility] [address] [place] [address] ALT No additional P-5'-P [Catalytic activity/Vol] 25 Int._Unit/L Normal 6-46 [facility] Comment on above: Performed By: #### 2 248581, 9213790, 70783433, 6071241, 3720323, 7719636 ####[facility] [address] [place] [address] AST [Catalytic activity/Vol] 25 Int._Unit/L Normal 5-43 [facility] Comment on above: Performed By: #### 2 288199, 3481837, 63818252, 1749595, 3397930, 3422052 ####[facility] [address] [place] [address] Bilirubin [Mass/Vol] 0.2 mg/dL Normal 0.0-1.1 [facility] Comment on above: Performed By: #### 2 396077, 7556085, 84502810, 0689876, 3597288, 5147384 ####[address] [place] [address] Bilirubin.direct [Mass/Vol] 0.1 mg/dL Normal 0.1-0.4 [facility] Comment on above: Performed By: #### 2 465880, 7967862, 99339978, 9065976, 7843879, 6798616 ####[address] [address] Bilirubin.indirect [Mass or moles/Vol] 0.1 mg/dL Normal 0.1-0.9 [facility] Comment on above: Performed By: #### 2 675462, 3345038, 41293408, 9543607, 3175292, 9500764 ####[address] [address] Globulin (S) [Mass/Vol] 4.0 g/dL Normal 1.4-4.0 [facility] Comment on above: Performed By: #### 2 443146, 3606746, 95394736, 4849461, 5119949, 2491739 ####[address] [address] Protein [Mass/Vol] 7.9 g/dL High 6.0-7.8 [facility] Comment on above: Performed By: #### 2 181769, 8224019, 68888283, 0000108, 6220130, 3895020 ####[address] [place] [address] Lipase Levelon 09-25-2023 Lipase [Catalytic activity/Vol] 39 U/L Normal 13-58 [facility] Comment on above: Performed By: #### 2 665764, 7963438, 32165650, 1186398, 9455207, 6142484 ####[address] [place] [address] RAD - Preliminary Cat Scan R lizet 09-25-2023 RAD - Preliminary Cat Scan Report [id number]# 1.00TIFF Normal [facility] URINALYSISOrdered By: Tanya Nathan on 09-25-2023 Bilirubin Ql (U) Negative (09/25/23 9:53 PM) Normal Negative [facility] UA Auto SS Clarity (U) Clear (09/25/23 9:53 PM) Normal Clear [facility] UA Auto SS Color (U) Yellow (09/25/23 9:53 PM) Normal Yellow [facility] UA Auto SS Epithelial cells.squamous LM.HPF (Urine sed) [#/Area] 0-2 /HPF Normal 0-2/HPF [facility] UA Aut o SS Glucose Test strip (U) [Mass/Vol] Negative (09/25/23 9:53 PM) Normal Negative [facility] UA Auto SS Hemoglobin Ql (U) Negative (09/25/23 9:53 PM) Normal Negative [facility] UA Auto SS Ketones (U) [Mass/Vol] Negative (09/25/23 9:53 PM) Normal Negative [facility] UA Auto SS [place].plasma/[place] .RBC (Bld) [Mass ratio] 0-3 /HPF Normal 0-3/HPF [facility] UA Auto SS Nitrite Ql (U) Negative (09/25/23 9:53 PM) Normal Negative [facility] UA Auto SS pH (U) 6.5 *NA* (09/25/23 9:53 PM) Invalid Interpretation Code 5.0 - 9.0 [facility] UA Auto SS Protein (U) [Mass/Vol] Negative (09/25/23 9:53 PM) Normal Negative [facility] UA Auto SS Specific gravity (U) [Rel density] <=1.005 *NA* (09/25/23 9:53 PM) Invalid Interpretation Code 1.005 - 1.030 [facility] UA Auto SS UA Spec Desc Clean Catch (09/25/23 9:53 PM) Normal [facility] UA Auto SS Urobilinogen Qn (U) 0.6028030 {Nayla'U}/dL Normal 0.0 - 1.0 EU/dL [facility] UA Auto SS WBC Auto Ql (U) Negative (09/25/23 9:53 PM) Normal Negative [facility] UA Auto SS WBC LM.HPF (Urine sed) [#/Area] 0-5 /HPF Normal 0-5/HPF [facility] UA Auto SS eGFRon 09-25-2023 GFR/1.73 sq M.predicted among non-blacks MDRD (S/P/Bld) [Vol rate/Area] 74 mL/min/1.73 m2 Normal >=59 [facility] Comment on above: Order Comment: Order added by Discern Expert. Result Comment: Agricultural Economics Teacher nita kidney disease could be indicated at eGFR's of less than 60 mL/min/1.73m2. Kidney failure is indicated at less than 15 mL/min/1.73m2. Performed By: #### 2 812541, 1919612, 52671984, 0561472, 4156676, 0372337 ####[facility] [address] [place] [address] 36on 09-08-2023 36 Approving, but needs appt for additional refills. Normal [facility] Auto Diffon 09-08-2023 Basophils/100 WBC (Bld) 0.2 % Normal 0.0-2.0 [facility] Comment on above: Order Comment: Order Added by Discern Expert. Performed By: #### 2 590714, 4728280, 13160872, 90244155, 8351346, 2159523, 20810281, 06031206 #### [facility] [address] [place] [address] Basophils/Leukocytes Auto (Bld) [Pure # fraction] 0.0 E9/L Normal 0.0-0.2 [facility] Comment on above: Order Comment: Order Added by Discern Expert. Performed By: #### 2 041931, 0773155, 55259771, 08290105, 2515216, 7269540, 10740978, 45349330 #### [facility] [address] [place] [address] Eosinophils/100 WBC (Bld) 0.8 % Normal 0.0-8.0 [facility] Comment on above: Order Comment: Order Added by Discern Expert. Performed By: #### 2 476909, 8091413, 53585330, 37912022, 8960761, 0901334, 06757862, 51719826 #### [facility] [address] [place] [address] Eosinophils/Leukocytes Auto (Bld) [Pure # fraction] 0.1 E9/L Normal 0.0-0.5 [facility] Comment on above: Order Comment: Order Added by Discern Expert. Performed By: #### 2 655419, 2364927, 77712005, 30195646, 5336781, 2341934, 18962723, 91624704 #### [facility] [address] [place] [address] Lymphocytes/100 WBC (Bld) 11.3 % Low 14.0-50.0 [facility] Comment on above: Order Comment: Order Added by Discern Expert. Performed By: #### 2 151270, 7341888, 99299228, 44488251, 7055566, 6212693, 06986408, 95723002 #### [facility] [address] [place] [address] Lymphocytes/Leukocytes Auto (Bld) [Pure # fraction] 1.0 E9/L Normal 1.0-4.0 [facility] Comment on above: Order Comment: Order Added by Discern Expert. Performed By: #### 2 478873, 7966634, 30384875, 89385622, 0952239, 4634249, 43238926, 32876174 #### [facility] [address] [place] [address] Monocytes/100 WBC (Bld) 6.9 % Normal 4.0-14.0 [facility] Comment on above: Order Comment: Order Added by Discern Expert. Performed By: #### 2 786690, 1340551, 39410738, 86052799, 9451720, 8670394, 46435861, 16949209 #### [facility] [address] [place] [address] Monocytes/Leukocytes Auto (Bld) [Pure # fraction] 0.6 E9/L Normal 0.2-1.0 [facility] Comment on above: Order Comment: Order Added by Discern Expert. Performed By: #### 2 452847, 3221230, 02741632, 37073400, 2109004, 5521093, 63928793, 20799725 #### [facility] [address] [place] [address] Neutrophils/100 WBC (Bld) 80.8 % High 36.0-75.0 [facility] Comment on above: Order Comment: Order Added by Discern Expert. Performed By: #### 2 015966, 2992243, 86364402, 02441189, 7045771, 0514175, 05618074, 64858210 #### [facility] [address] [place] [address] Neutrophils/Leukocytes Auto (Bld) [Pure # fraction] 7.1 E9/L Normal 2.0-7.5 [facility] Comment on above: Order Comment: Order Added by Discern Expert. Performed By: #### 2 030111, 2594615, 71933896, 23811311, 3115016, 8943006, 40517066, 97513544 #### [facility] [address] [place] [address] BMP 09-08-2023 Creatinine [Mass/Vol] 1.2 mg/dL Normal 0.5-1.3 [facility] Comment on above: Performed By: #### 2 291950, 7323584, 28827990, 70607528, 6772710, 7879729, 38373526, 24645153 #### [facility] [address] [place] [address] Urea nitrogen [Mass/Vol] 26 mg/dL High 5-21 [facility] Comment on above: Performed By: #### 2 547285, 7918012, 90200388, 49534668, 3811260, 0433230, 25193019, 02295039 #### [facility] [address] [place] [address] Urea nitrogen/Creatinine [Mass ratio] 22 No Units High 10-20 [facility] Comment on above: Performed By: #### 2 624190, 2159274, 20884455, 98369872, 8618838, 1630459, 74809366, 26887296 #### [facility] [address] [place] [address] Anion gap [Moles/Vol] 13 mmol/L Normal 6-16 [facility] Comment on above: Performed By: #### 2 770121, 2623072, 33397355, 07698174, 3150171, 7306418, 39811817, 84796458 #### [facility] [address] [place] [address] Calcium [Mass/Vol] 9.9 mg/dL Normal 8.9-11.1 [facility] Comment on above: Performed By: #### 2 680255, 9572714, 88138650, 68883289, 6901504, 3603978, 15773881, 10437752 #### [facility] [address] [place] [address] Chloride [Moles/Vol] 99 mmol/L Low 101-111 [facility] Comment on above: Performed By: #### 2 715258, 5126347, 14393618, 90494580, 6300327, 0661782, 50824155, 87828098 #### [facility] [address] [place] [address] CO2 [Moles/Vol] 28 mmol/L Normal 21-31 [facility] Comment on above: Performed By: #### 2 598030, 0385201, 17368376, 81117786, 8222461, 9595930, 49839149, 45915621 #### [facility] [address] [place] [address] Glucose [Mass/Vol] 126 mg/dL Normal 55-199 [facility] Comment on above: Result Comment: If t his glucose result represents a fasting glucose, interpretation should refer to the following reference range: 55-99 mg/dL Performed By: #### 2 532015, 2699582, 36324871, 70708494, 1941884, 0419053, 78844315, 55634580 #### [facility] [address] [place] [address] Potassium [Moles/Vol] 4.0 mmol/L Normal 3.5-5.3 [facility] Comment on above: Performed By: #### 2 338715, 3240098, 83785512, 56505659, 5697631, 5612738, 01376137, 67125310 #### [facility] [address] [place] [address] Sodium [Moles/Vol] 136 mmol/L Normal 135-145 [facility] Comment on above: Performed By: #### 2 328079, 7784135, 86665961, 80109826, 4628279, 4344702, 08497899, 76560333 #### [facility] [address] [place] [address] BNPon 09-08-2023 Int Ctr BNP Pass Normal [facility] Comment on above: Performed By: #### 2 493486, 8447206, 11719035, 38781093, 0833484, 9255604, 09625806, 57337665 #### [facility] [address] [place] [address] Natriuretic peptide B (Bld) [Mass/Vol] 21 pg/mL Normal 5-80 [facility] Comment on above: Performed By: #### 2 458609, 7509141, 62713136, 91408701, 3752771, 7485597, 17205735, 43464841 #### [facility] [address] [place] [address] CBC w/ Auto Diffon 3 Erythrocyte distribution width (RBC) [Ratio] 15.1 % High 10.9-14.2 [facility] Comment on above: Performed By: #### 2 575431, 2286732, 55198515, 17574390, 6693038, 8999649, 82193518, 89766351 #### [facility] [address] [place] [address] Hematocrit (Bld) [Volume fraction] 38.8 % Normal 34.0-46.0 [facility] Comment on above: Performed By: #### 2 369170, 4169583, 51584816, 66593009, 6010757, 2827392, 04031563, 91971395 #### [facility] [address] [place] [address] Hemoglobin (Bld) [Mass/Vol] 13.0 g/dL Normal 12.0-16.0 [facility] Comment on above: Performed By: #### 2 722611, 2851504, 05505226, 87787333, 8656691, 4530735, 55307777, 66735621 #### [facility] [address] [address] MCH (RBC) [Entitic mass] 29.4 pg Normal 27.0-34.0 [facility] Comment on above: Performed By: #### 2 267129, 0971400, 12209414, 34705644, 9798049, 9637288, 51090142, 98669039 #### [facility] [address] [place] [address] MCHC (RBC) [Mass/Vol] 33.5 g/dL Normal 31.4-36.0 [facility] Comment on above: Performed By: #### 2 430328, 3896254, 04338379, 72444510, 1835665, 2423757, 33764542, 21600814 #### [facility] [address] [place] [address] MCV (RBC) [Entitic vol] 87.6 fL Normal 80.0-100.0 [facility] Comment on above: Performed By: #### 2 238763, 7282497, 01275625, 23288214, 3007811, 9197405, 11517681, 80083343 #### [facility] [address] [place] [address] Platelet mean volume (Bld) [Entitic vol] 10.7 fL Normal 6.4-10.8 [facility] Comment on above: Performed By: #### 2 958787, 0227727, 23085524, 31946316, 1541972, 2846930, 49871219, 64385766 #### [facility] [address] [place] [address] Platelets (Bld) [#/Vol] 195.0 E9/L Normal 150.0-500.0 [facility] Comment on above: Performed By: #### 2 522134, 4509426, 63913141, 78120330, 0672640, 4233286, 78761066, 96196583 #### [facility] [address] [place] [address] RBC (Bld) [#/Vol] 4.4 E12/L Normal 4.3-5.9 [facility] Comment on above: Performed By: #### 2 969848, 7016863, 44625856, 63305855, 4053166, 7252652, 29462347, 04048569 #### [facility] [address] [place] [address] WBC corrected for nucl RBC Auto (Bld) [#/Vol] 8.8 E9/L Normal 4.0-11.0 [facility] Comment on above: Performed By: #### 2 591421, 2292681, 25084933, 30602815, 5012833, 2610001, 12741340, 02465468 #### [facility] [address] [place] [address] CHEMISTRYOrdered By: SYSTEM SYSTEM on 09-08-2023 Troponin I.cardiac [Mass/Vol] 4.20 pg/mL Low 10.10 - 27.10 pg/mL [facility] Remisol Comment on above: Interpretive Data: T he 95% CI (Confidence Interval) PPV (Positive Predictive Value) for myocardial infarction in females is 38 pg/mL, in males 51 pg/mL. The results should be used in conjunction with clinical conditions of myocardial infarction. (Access High Sensitivity Troponin I Instructions For Use, Claude Houston, May 2018) Albumin [Mass/Vol] 3.8 g/dL Normal 3.3 - 5.0 gm/dL [facility] Remisol Albumin/Globulin [Mass ratio] 0.8 {ratio} Low 1.1 - 2.2 [facility] Remisol ALP [Catalytic activity/Vol] 68 [iU]/d Normal 21 - 98 Int._Unit/L [facility] Remisol ALT No additional P-5'-P [Catalytic activity/Vol] 18 [iU]/d Normal 6 - 46 Int._Unit/L [facility] Remisol Anion gap [Moles/Vol] 13 mmol/L Normal 6 - 16 mEq/L [facility] AST [Catalytic activity/Vol] 20 [iU]/d Normal 5 - 43 Int._Unit/L [facility] Bilirubin [Mass/Vol] 0.4 mg/dL Normal 0.0 - 1 .1 mg/dL [facility] Bilirubin.direct [Mass/Vol] mg/dL Normal 0.1 - 0.4 mg/dL [facility] Bilirubin.indirect [Mass or moles/Vol] Unable to Calculate mg/dL Invalid Interpretation Code 0.1 - 0.9 mg/dL [facility] Calcium [Mass/Vol] 9.9 mg/dL Normal 8.9 - 11. 1 mg/dL [facility] Chloride [Moles/Vol] 99 mmol/L Low 101 - 1 11 mmol/L [facility] CO2 [Moles/Vol] 28 mmol/L Normal 21 - 31 mmol/L [facility] Creatinine [Mass/Vol] 1.2 mg/dL Normal 0.5 - 1.3 mg/dL [facility] GFR/1.73 sq M.predicted among non-blacks MDRD (S/P/Bld) [Vol rate/Area] 52 mL/min/1.73 m2 Low >=59mL/min/1 .73 m2 [facility] Comment on above: Interpretive Data: C hronic kidney disease could be indicated at eGFR's of less than 60 mL/min/1.73m2. Kidney failure is indicated at less than 15 mL/min/1.73m2. Globulin (S) [Mass/Vol] 4.5 g/dL High 1.4 - 4.0 gm/dL [facility] Remisol Glucose [Mass/Vol] 126 mg/dL Normal 55 - 199 mg/dL [facility] Remisol Comment on above: Interpretive Data: I f this glucose result represents a fasting glucose, interpretation should refer to the following reference range: 55-99 mg/dL Potassium [Moles/Vol] 4.0 mmol/L Normal 3.5 - 5.3 mmol/L [facility] Remisol Protein [Mass/Vol] 8.3 g/dL High 6.0 - 7.8 gm/dL [facility] Sodium [Moles/Vol] 136 mmol/L Normal 135 - 145 mmol/L [facility] Remisol Troponin I.cardiac [Mass/Vol] 4.70 pg/mL Low 10.10 - 27.10 pg/mL [facility] Remisol Comment on above: Interpretive Data: T he 95% CI (Confidence Interval) PPV (Positive Predictive Value) for myocardial infarction in females is 38 pg/mL, in males 51 pg/mL. The results should be used in conjunction with clinical conditions of myocardial infarction. (Access High Sensitivity Troponin I Instructions For Use, Claude Raulito, May 2018) Urea nitrogen [Mass/Vol] 26 mg/dL High 5 - 21 mg/dL [facility] Remisol Urea nitrogen/Creatinine [Mass ratio] 22 mg/mg High 10 - 20 [facility] CHEMISTRYOrdered By: Yanet Davis on 09-08-2023 Natriuretic peptide B (Bld) [Mass/Vol] 21 pg/mL Normal 5 - 80 pg/mL [facility] COAGULATIONOrdered By: Dov Patel on 09-08-2023 aPTT Coag (PPP) [Time] 37.3 s High 25.1 - 36.5 second(s) [facility] Auto Coag Comment on above: Interpretive Data: Yanely bailey 15 days - 4 weeks 1 - 5 months 6 - 11 months 1 - 5 years 6 - 10 years 11 - 17 years PTT Mean: 35.4 (27.6-45.6) Mean: 33.5 (24.8-40.7) Mean: 32.4 (25.1-40.7) Mean: 31.6 (24.0-39.2) Mean: 31.6 (26.9-38.7) Mean: 31.0 (24.6-38.4) Pediatric Reference ranges were obtained from a study by dalila Mena al. prepared from 1437 samples obtained at 7 different centers using the same coagulation reagent and instrumentation as [facility]. Currently there are no coagulation studies available worldwide for children to 14 days, and no normal ranges. Heparin therapeutic range (represented by Anti-Factor Xa activity of 0.2 - 0.4 U/mL) corresponds to PTT of 56.6 - 109.0 sec. INR Coag (PPP) [Relative time] 1.2 {INR} Invalid Interpretation Code [facility] Auto Coag Comment on above: Interpretive Data: I NR results are specifically intended to assess patients stabilized on long-term Anticoagulation therapy suggested INR s Less Intensive Anticoagulation 2.0 3.0 Conventional Range 3.0 4.5 PT Coag (PPP) [Time] 13.7 s High 9.4 - 1 2.5 second(s) [facility] Auto Coag Comment on above: Interpretive Data: 1 5 days - 4 weeks 1 - 5 months 6 -11 months 1-5 years 6-10 years 11 -17 years Mean: 11.2 (9.5-12.6) Mean: 11.0 (9.7-12.8) Mean: 11.0 (9.8-13.0) Mean: 11.3 (9.9-13.4) Mean: 11.7 (10.0-14.6) Mean: 11.8 (10.0 - 14.1) Pediatric Reference ranges were obtained from a study by dalila Mena al. prepared from 1437 samples obtained at 7 different centers using the same coagulation reagent and instrumentation as [facility]. Currently there are no coagulation studies available worldwide for children to 14 days, and no normal ranges. CTA Cheston 09-08-2023 CTA Chest Exam Date/Time: 09/08/2023 17:23 EST Reason for Exam: pe rule out;Other (please specify) Report IMPRESSION: No CT evidence of acute pulmonary embolism or other acute process in the thorax. EXAMINATION: CHEST CT WITH CONTRAST (PULMONARY EMBOLISM PROTOCOL) CLINICAL HISTORY: Right-sided chest pain. Shortness of breath. Former smoker. History of COPD. Technique: Spiral CTA acquisition of the chest from the thoracic inlet to the upper abdomen following IV contrast. Including MIP reconstructions in coronal plane. Other sagittal and coronal reconstructions. Contrast: IV administration of 68 ml [address] scans at this facility use dose modulation, iterative reconstruction, and/or weight based dosing when appropriate to reduce radiation dose to as low as reasonably achievable. Comparison: CT 06/16/2023. RESULT: Evaluation for thromboembolic disease: No evidence for thromboembolic disease in the main, lobar, segmental, and visualized subsegmental pulmonary arteries with poor opacification of some of the subsegmental branches. No evidence for right heart strain. Lung parenchyma and pleura: Central airways grossly patent. No consolidative opacity. Dependent atelectasis. No pleural effusion or pneumothorax. Thoracic inlet, heart, and mediastinum: Visualized thyroid unremarkable. No axillary, mediastinal, or hilar lymphadenopathy. Mild thoracic aorta atherosclerotic calcifications without aneurysm. Normal pulmonary artery size. Stable heart size. Scattered coronary artery calcifications. No pericardial effusion or thickening. Esophagus nondilated. Bones: No acute osseous findings. No destructive osseous lesions. Soft tissues: Unremarkable. Upper abdomen: No acute abnormality in the imaged upper abdomen. Small bilateral adrenal nodules, unchanged. Report Ordering Provider: Ramses Hair FINAL REPORT Dictated: 09/08/2023 5:39 pm Satinder Peck MD. Signed (Electronic Signature): 09/08/2023 5:39 pm Signed by: Satinder Peck MD Transcribed by: NOHEMY Technologist: NESTOR Technical Comments GFR (mL/min/1/73m2) n/a Contrast: Isovue 370 Contrast amount in ml's: 68 Normal [facility] Consent for Treatmenton Consent for Treatment [id number]# 1.00TIFF Normal [facility] Discharge Instructionson Discharge Instructions [id number]# 1.00TIFF Normal [facility] ED Clinical Summaryon 2022 ED Clinical Summary [address] [address] ED Clinical Summary Person Information Name: SIS MOORE [facility]ary/[facility] Age: 57 Years : 1965 Sex: Female Language: Citizen Of [place] PCP: LINK HAMEED CNP Marital Status: Visit Id: Visit Reason: Shortness of breath; Chest pain; CHEST PAIN Speciality: Acuity: 3 Enc Type: Emergency Med Service: Emergency Arrival: 09/08/2023 16:32:21 Discharge: 09/08/2023 20:29:05 LOS: 000 03:57 Checkin: 09/08/2023 16:32:21 Checkout: 09/08/2023 20:29:05 Dispo Type: Home (Routine DC) EVENTS: Event Name Event Status Request Date/Time Start Date/Time Complete Date/Time Arrive Complete 09/08/2023 16:32:21 09/08/2023 16:32:21 09/08/2023 16:32:21 Document Home Meds Request 09/08/2023 16:32:21 Triage Complete 09/08/2023 16:32:21 09/08/2023 16:38:16 09/08/2023 16:38:16 Bed Assign Complete 09/08/2023 16:32:58 09/08/2023 16:32:58 09/08/2023 16:32:58 Dr Exam Complete 09/08/2023 16:32:58 09/08/2023 16:33:05 09/08/2023 16:33:05 RN Exam Complete 09/08/2023 16:32:58 09/08/2023 17:49:18 09/08/2023 17:49:18 Registration Complete 09/08/2023 16:33:05 09/08/2023 17:03:21 09/08/2023 17:03:21 EKG Complete 09/08/2023 16:36:00 09/08/2023 16:37:49 Pending Labs Request 09/08/2023 16:37:30 Lab Complete 09/08/2023 16:37:30 09/08/2023 17:23:02 Patient Care Request 09/08/2023 16:37:30 RT Request 09/08/2023 16:37:30 X-Ray Cancel 09/08/2023 16:37:31 09/08/2023 16:55:36 09/08/2023 17:07:06 Pending Labs Complete 09/08/2023 16:54:17 09/08/2023 16:54:17 09/08/2023 17:17:58 Lab Complete 09/08/2023 16:54:17 09/08/2023 16:54:17 09/08/2023 17:17:58 Pending Labs Complete 09/08/2023 16:59:54 09/08/2023 16:59:54 09/08/2023 17:00:02 Lab Complete 09/08/2023 16:59:54 09/08/2023 16:59:54 09/08/2023 17:00:02 CT Complete 09/08/2023 17:01:41 09/08/2023 17:06:20 09/08/2023 17:23:15 Reg Complete Request 09/08/2023 17:03:21 Reg Bed Request Complete 09/08/2023 17:03:21 09/08/2023 17:03:21 09/08/2023 17:03:21 Dr Exam Complete 09/08/2023 19:03:21 09/08/2023 19:03:21 09/08/2023 19:03:21 Registration Request 09/08/2023 19:03:21 Pending Labs Complete 09/08/2023 20:06:04 09/08/2023 20:06:04 09/08/2023 20:06:05 Discharge Complete 09/08/2023 20:17:29 09/08/2023 20:29:11 09/08/2023 20:29:11 Transfer Complete 09/08/2023 20:29:11 09/08/2023 20:29:11 09/08/2023 20:29:11 ADDRESS: [address] [place] [address] [address] [facility] [id number] PHYS DOC NOTES: MEDICAL INFORMATION: Prescriptions Given: Medications to Continue with No Changes Other Medications albuterol (Ventolin HFA 90 mcg/inh Aerosol-Adpt) 1 Puffs Inhalation 4 times a day as needed for wheezing. albuterol-ipratropium (albuterol-ipratropiu m Inh Debby 3 mL UD) 3 Milliliter Inhalation 4 times a day. apixaban (Eliquis 5 mg oral tablet) 2 tab(s) Oral BID x 6 days then 1 tab oral BID x 30 days. Refills: 0. apixaban (Eliquis 5 mg oral tablet) 1 Tablets By Mouth 2 times a day. Refills: 3. aspirin (Aspirin Low Dose 81 mg oral enteric coated tablet) busPIRone (busPIRone 15 mg Tab) 1 Tablets By Mouth 3 times a day. duloxetine (duloxetine 60 mg oral delayed release capsule) fluticasone (Flovent HFA 110 Aerosol) 2 Puffs Inhalation 2 times a day. fluticasone nasal (fluticasone Nasal 0.05 mg/inh [place]) 2 Sprays Nasal Inhalation every day. each nostril. formoterol-glycopyrro late (Bevespi Aerosphere 9 mcg-4.8 mcg/inh inhalation aerosol) 2 Puffs Inhalation 2 times a day. furosemide (furosemide 20 mg Tab) 1 Tablets By Mouth every day. gabapentin (gabapentin 300 mg Cap) 1 Capsules By Mouth 2 times a day. hydrochlorothiazide-l isinopril (hydrochlorothiazide- lisinopril 25 mg-20 mg Tab) 1 Tablets By Mouth every day. lamotrigine (lamotrigine 25 mg Tab) 1 Tablets By Mouth 2 times a day. [facility] Prescription (ATORVASTATIN CALCIUM 40 MG TABLET) 0. multivitamin (Daily Harvinder oral tablet) 1 Tablets By Mouth every day. pioglitazone (pioglitazone 15 mg Tab) 1 Tablets By Mouth every day. potassium chloride (Potassium Chloride (Nbh-Lizj-Jhv 10) 10 mEq oral tablet, extended release) pramipexole (pramipexole 0.5 mg oral tablet) 1 Tablets By Mouth 3 times a day. theophylline (theophylline 300 mg ER Tab) 1 Tablets By Mouth every 12 hours. trazodone (traZODONE 50 mg Tab) 1 Tablets By Mouth once a day (at bedtime). PATIENT EDUCATION INFORMATION: Instructions: Nonspecific Chest Pain, Adult Follow up: With: Address: When: LINK HAMEED [address] [place], [place] [phone] Business (1) In 3 days DIAGNOSIS: Acute chest pain Normal [facility] ED Note-Physicianon 09-08-20 ED Note-Physician Patient was signed out to me by outgoing physician. At the time of signout the initial round of labs is overall encouraging. CT of the chest has been performed and shows no evidence of acute PE or other acute process. The plan is for repeat 3-hour troponin and disposition. Repeat 3-hour troponin is within normal limits. I discussed these findings with the patient at bedside. She is in agreement the plan of discharge and close follow-up with her primary care physician on an outpatient basis. Discussed return precautions. Patient was discharged stable condition. Normal [facility] Comment on above: Result Comment: Elec tronically Signed By: Moses Fischer DO\.br\Date and Time Signed: 09/08/23 20:18 EST ED Note-Physician Basic Information Time Seen: Ramses Hair DO 09/08/2023 16:33 Chief Complaint pt c\o R sided chest pain x2 hours denies NV History of Present Illness 57-year-old female to the emergency department chief complaint of chest pain. Patient reports approximately 2 hours prior to arrival she began to experience a sharp pain located in the lateral ribs on the right side. Is worse with deep inspiration and movement. There is no pressure-like or left-sided chest pain. It does not radiate. There is no nausea, vomiting or abdominal pain associated. Patient reports that she had a pulmonary embolism a few months ago the presented with similar symptoms which has her concerned. She is on Eliquis and has been taking it daily. She denies any fever, sweats, chills, nausea, vomiting. She has a history of COPD on 3 L oxygen chronically. Review of Systems A 10 point review of systems is negative except as noted above. Medical and Surgical History: Reviewed and noted Social history: Lives at home Tobacco: Denies Physical Exam Vitals & Measurements T: 36.8 ?C(Oral) HR: 93(Monitored) RR: 17 BP: 129/72 SpO2: 96% HT: 175 cm WT: 120.1 kg BMI: 39.22 VITALS: I have reviewed the triage vital signs. GENERAL: Obese adult female in no distress NEURO: Alert and oriented x3. Moves all extremities. Face is symmetric and expressive. EYES: PERRL. No scleral icterus or conjunctival injection. No discharge. HENT: Normocephalic, atraumatic. Hearing is grossly intact. Nares grossly patent and without discharge. Mucous membranes moist. NECK: No JVD. Patient moves neck without restriction. CARDIO: Rhythm regular. Normal rate. No murmur, rub, or gallop. Pulses equal bilaterally in the upper and lower extremity. No lower extremity edema. No rash or lesions to the chest wall. PULM: Lungs clear to auscultation in all castro. No wheezes, rales, or rhonchi. No conversational dyspnea. No splinting, stridor, or accessory muscle use. Nasal cannula in place. GI/: Abdomen is soft and non-tender. Normoactive bowel sounds. EXTREMITIES: Symmetric muscle bulk. No joint swelling. No clubbing, cyanosis, or deformity. SKIN: Warm and dry. Normal turgor. No rash or lesions appreciated. PSYCH: Mood, affect, and interaction is appropriate to the setting. Procedure Heart Score for Major Cardiac Event History: Example factors for history - pattern of chest pain, onset, duration, relation with exercise, stress or cold, localization, concominant symptoms. reaction to sublingual nitrates, [] Highly suspicious +2 [] Moderately suspicious +1 [x] Slightly suspicious 0 EKG: [] Significant ST-Depression +2 [] Non specific repolarization disturbance +1 [x] Normal 0 Age: [] >= 65 +2 [x] 45-65 + 1 [] <45 0 Risk Factors: (HLD, HTN, DM, Cigarette Smoking, Pos Family Hx, Obesity) [x] >3 risk factors or hx of atheroslerotic disease + 2 [] 1-2 risk factors + 1 [] No risk factors known 0 Troponin: [] >= 3X normal + 2 [] 1-3X normal + 1 [x] <= Normal 0 [x] 0-3 Points 0.9 - 1.7% risk of major adverse cardiac event in 6 weeks [] 4-6 Points 12-16.6% risk of major adverse cardiac event in 6 weeks [] 7-10 Points 50-65% risk of major adverse cardiac event in 6 weeks [] 0-3 Points with 2 sets of negative cardiac markers <1% risk of major adverse cardiac event in 30 days. Medical Decision Making 57-year-old female to the emergency department chief complaint of chest pain. Tachycardic, otherwise stable vitals. The patient is afebrile. She is on her baseline oxygen needs. Cardiac work-up is initiated. Given her history of PE with similar symptoms a CTA is ordered. Patient agrees with this plan. Lab work reviewed and noted. CBC without acute abnormality. Chemistry is without significant abnormality. Her troponin is low. BNP within normal limits. CT angiogram of the chest is without evidence of pulmonary embolism. Patient's heart score is 3. Her pain seems to be more pleuritic/musculoskel etal in etiology than it does cardiac. We will perform a 3-hour troponin. Case was signed out to Dr. Fischer. If 3-hour troponin remains negative I anticipate the patient will be discharged home. Assessment/Plan Acute chest pain (R07.9: Chest pain, unspecified) Orders: Automated Diff B-Type Natriuretic Peptide Basic Metabolic Panel CBC w/ Auto Diff CTA Chest ED Cardiac Monitoring eGFR Hepatic Function Panel Oxygen Saturation Oxygen Therapy PT & PTT Saline Lock Insert Troponin 0 Hr. Troponin 3 Hr. Troponin 6 Hr. Troponin 9 Hr. Disposition Plan Patient Discharge Condition Stable Discharge Disposition Home Discharge Prescription List Prescriptions No active prescription medications Follow-up No qualifying data available Problem List/Past Medical History O (more content not included)... Normal [facility] Comment on above: Result Comment: Elec tronically Signed By: Ramses Hair DO\.br\Date and Time Signed: 09/08/23 18:26 EST ED Patient Education Noteon 09-08-2023 ED Patient Education Note Pulmonary Medicine Nonspecific Chest Pain, Adult Chest pain is an uncomfortable, tight, or painful feeling in the chest. The pain can feel like a crushing, aching, or squeezing pressure. A person can feel a burning or tingling sensation. Chest pain can also be felt in your back, neck, jaw, shoulder, or arm. This pain can be worse when you move, sneeze, or take a deep breath. Chest pain can be caused by a condition that is life-threatening. This must be treated right away. It can also be caused by something that is not life-threatening. If you have chest pain, it can be hard to know the difference, so it is important to get help right away to make sure that you do not have a serious condition. Some life-threatening causes of chest pain include: ? Heart attack. ? A tear in the body's main blood vessel (aortic dissection). ? Inflammation around your heart (pericarditis). ? A problem in the lungs, such as a blood clot (pulmonary embolism) or a collapsed lung (pneumothorax). Some non life-threatening causes of chest pain include: ? Heartburn. ? Anxiety or stress. ? Damage to the bones, muscles, and cartilage that make up your chest wall. ? Pneumonia or bronchitis. ? Shingles infection (varicella-zoster virus). Your chest pain may come and go. It may also be constant. Your health care provider will do tests and other studies to find the cause of your pain. Treatment will depend on the cause of your chest pain. Follow these instructions at home: Medicines ? Take jswa-ewb-kpptska and prescription medicines only as told by your health care provider. ? If you were prescribed an antibiotic medicine, take it as told by your health care provider. Do not stop taking the antibiotic even if you start to feel better. Activity ? Avoid any activities that cause chest pain. ? Do not lift anything that is heavier than 10 lb (4.5 kg), or the limit that you are told, until your health care provider says that it is safe. ? Rest as directed by your health care provider. ? Return to your normal activities only as told by your health care provider. Ask your health care provider what activities are safe for you. Lifestyle ? Do not use any products that contain nicotine or tobacco, such as cigarettes, e-cigarettes, and chewing tobacco. If you need help quitting, ask your health care provider. ? Do not drink alcohol. ? Make healthy lifestyle changes as recommended. These may include: ? Getting regular exercise. Ask your health care provider to suggest some exercises that are safe for you. ? Eating a heart-healthy diet. This includes plenty of fresh fruits and vegetables, whole grains, low-fat (lean) protein, and low-fat dairy products. A dietitian can help you find healthy eating options. ? Maintaining a healthy weight. ? Managing any other health conditions you may have, such as high blood pressure (hypertension) or diabetes. ? Reducing stress, such as with yoga or relaxation techniques. General instructions ? Pay attention to any changes in your symptoms. ? It is up to you to get the results of any tests that were done. Ask your health care provider, or the department that is doing the tests, when your results will be ready. ? Keep all follow-up visits as told by your health care provider. This is important. ? You may be asked to go for further testing if your chest pain does not go away. Contact a health care provider if: ? Your chest pain does not go away. ? You feel depressed. ? You have a fever. ? You notice changes in your symptoms or develop new symptoms. Get help right away if: ? Your chest pain gets worse. ? You have a cough that gets worse, or you cough up blood. ? You have severe pain in your abdomen. ? You faint. ? You have sudden, unexplained chest discomfort. ? You have sudden, unexplained discomfort in your arms, back, neck, or jaw. ? You have shortness of breath at any time. ? You suddenly start to sweat, or your skin gets clammy. ? You feel nausea or you vomit. ? You suddenly feel lightheaded or dizzy. ? You have severe weakness, or unexplained weakness or fatigue. ? Your heart begins to beat quickly, or it feels like it is skipping beats. These symptoms may represent a serious problem that is an emergency. Do not wait to see if the symptoms will go away. Get medical help right away. Call your local emergency services (911 in the [place] Do not drive yourself to the hospital. Summary ? Chest pain can be caused by a condition that is serious and requires urgent treatment. It may also be caused by something that is not life-threatening. ? Your health care provider may do lab tests and other studies to find the cause of your pain. ? Follow your health care provider's instructions on taking medicines, making lifestyle changes, and getting emergency treatment if symptoms become worse. ? Keep all follow-up visits as told by your (more content not included)... Normal [facility] ED Patient Summaryon 023 ED Patient Summary [address] [address] Patient Discharge Instructions Person Information Name: SIS MOORE Age: 57 Years Arrival Date: 09/08/2023 16:32:21 Discharge Diagnosis: Acute chest pain Primary Care Physician: LINK HAMEED CNP Provider Information Primary Provider: Ramses Hair DO Advanced Data Capture Clerk:None The exam and treatment you received in the Emergency Department were for an urgent problem and are not intended as complete care. It is important that you follow up with a doctor, nurse practitioner, or physician?s zoning assistant for ongoing care. If your symptoms become worse or you do not improve as expected and you are unable to reach your usual health care provider, you should return to the Emergency Department. We are available 24 hours a day. MOORELITOSIS Connie has been given the following list of patient education materials, prescriptions and follow-up instructions: Follow-up Instructions: With: Address: When: LINK HAMEED [address] [place], [place] [phone] Business (1) In 3 days In the event that this physician does not participate in your insurance network, please consult with your insurance company to find a nearby participating provider. Patient Education Materials: Nonspecific Chest Pain, Adult A MESSAGE TO ALL PATIENTS REGARDING OPIOIDS PRESCRIPTION OPIOIDS: WHAT YOU NEED TO KNOW Prescription opioids can be used to help relieve ikqhmeol-zw-cdkfft pain and are often prescribed following a surgery or injury, or for certain health conditions. These medications can be an important part of the treatment but also come with serious risks. It is important to work with your healthcare provider to make sure you are getting the safest, most effective care. WHAT ARE THE RISKS AND SIDE EFFECTS OF OPIOID USE? Prescription opioids carry serious risks of addiction and overdose, especially with prolonged use. An opioid overdose, often marked by slowed breathing, can cause sudden . The use of prescription opioids can have a number of side effects as well, even when taken as directed: ? Tolerance?meaning you might need to take more of the medication for the same pain relief ? Physical dependence?meaning you have symptoms of withdrawal when a medication is stopped ? Increased sensitivity to pain ? Constipation ? Nausea, vomiting, and dry mouth ? Sleepiness and dizziness ? Confusion ? Depression ? Low levels of testosterone that can result in lower sex drive, energy, and strength ? Itching and sweating RISKS ARE GREATER WITH: ? History of drug misuse, substance use disorder, or overdose ? Mental health conditions (such as depression or anxiety) ? Sleep apnea ? Older age (65 years and older) ? Avoid alcohol while taking prescription opioids. Also, unless specifically advised by your health care provider, medications to avoid include: ? Benzodiazepines (such as Xanax or Valium) ? Muscle relaxants (such as Soma or Flexeril) ? Hypnotics (such as Ambien or Lunesta) ? Other prescription opioids KNOW YOUR OPTIONS Talk to your health care provider about ways to manage your pain that don?t involve prescription opioids. Some of these options may actually work better and have fewer risks and side effects. Options may include: ? Pain relievers such as acetaminophen, ibuprofen, and naproxen ? Some medication that are also used for depression or seizures ? Physical therapy and exercise ? Cognitive behavioral therapy, a psychological, goal-directed approach, in which patients learn how to modify physical, behavioral, and emotional triggers of pain and stress. IF YOU ARE PRESCRIBED OPIOIDS FOR PAIN: ? Never take opioids in greater amounts or more often than prescribed. ? Follow up with your primary health care provider. o Work together to create a plan on how to manage your pain. o Talk about ways to help manage your pain that don?t involve prescription opioids. o Talk about any and all concerns and side effects. ? Help prevent misuse and abuse o Never sell or share prescription opioids. o Never use another person?s prescription opioids. ? Store prescription opioids in a secure place and out of reach of others (this may include visitors, children, friends, and family). ? Safely dispose of unused prescription opioids: Find your community drug take-back program or your pharmacy mail-back program, or flush them down the toilet, following guidance from the Food and Drug Administration (www.fda.gov/Drugs/Re sourcesForYou). ? Visit www.cdc.gov/drugoverd ose to learn about the risks of opioids abuse and overdose. ? If you believe you may be struggling with addiction, tell your health care management specialist and ask for guidance or call [facility]?S National Helpline at 1-389-256-CLUV. g Source: [place] (more content not included)... Normal [facility] EMS Documentationon 09-08-20 EMS Documentation Please click on link to see report Normal [facility] Comment on above: Result Comment: Miss duncan Attachment - attachment exceeds size limitation Continuous_Complete_1.pdf Can be viewed in source system HEMATOLOGYOrdered By: SYSTEM SYSTEM on 09-08-2023 Basophils/100 WBC (Bld) 0.2 % Normal 0.0 - 2.0 % [facility] Basophils/Leukocytes Auto (Bld) [Pure # fraction] 0.0 E9/L Normal 0.0 - 0.2 E9/L [facility] Eosinophils/100 WBC (Bld) 0.8 % Normal 0.0 - 8.0 % [facility] Eosinophils/Leukocytes Auto (Bld) [Pure # fraction] 0.1 E9/L Normal 0.0 - 0.5 E9/L [facility] Lymphocytes/100 WBC (Bld) 11.3 % Low 14.0 - 50.0 % [facility] Lymphocytes/Leukocytes Auto (Bld) [Pure # fraction] 1.0 E9/L Normal 1.0 - 4.0 E9/L [facility] Monocytes/100 WBC (Bld) 6.9 % Normal 4.0 - 14.0 % [facility] Monocytes/Leukocytes Auto (Bld) [Pure # fraction] 0.6 E9/L Normal 0.2 - 1.0 E9/L [facility] Neutrophils/100 WBC (Bld) 80.8 % High 36.0 - 75.0 % [facility] Neutrophils/Leukocytes Auto (Bld) [Pure # fraction] 7.1 E9/L Normal 2.0 - 7.5 E9/L [facility] HEMATOLOGYOrdered By: Gracy Davis on 09-08-2023 Erythrocyte distribution width (RBC) [Ratio] 15.1 % High 10.9 - 14.2 % [facility] HemeAutoSS Hematocrit (Bld) [Volume fraction] 38.8 % Normal 34.0 - 46.0 % [facility] Hemoglobin (Bld) [Mass/Vol] 13.0 g/dL Normal 12.0 - 16.0 gm/dL [facility] MCH (RBC) [Entitic mass] 29.4 pg Normal 27.0 - 34.0 pg [facility] MCHC (RBC) [Mass/Vol] 33.5 g/dL Normal 31.4 - 36.0 gm/dL [facility] MCV (RBC) [Entitic vol] 87.6 fL Normal 80.0 - 100.0 fL [facility] Platelet mean volume (Bld) [Entitic vol] 10.7 fL Normal 6.4 - 10.8 fL [facility] Platelets (Bld) [#/Vol] 195.0 E9/L Normal 150.0 - 500.0 E9/L [facility] RBC (Bld) [#/Vol] 4.4 E12/L Normal 4.3 - 5.9 E12/L [facility] WBC corrected for nucl RBC Auto (Bld) [#/Vol] 8.8 E9/L Normal 4.0 - 11.0 E9/L [facility] Hep Func Panelon 09-08-2023 Bilirubin.indirect [Mass or moles/Vol] UTC Abnormal 0.1-0.9 [facility] Comment on above: Result Comment: Resu lt verified by Discern Rule. Performed result UTC (Unable to Calculate) was sent as an Alpha code due the inability to calculate a valid numeric value. Performed By: #### 2 748412, 5935762, 78769426, 28710316, 5415217, 1417399, 46925608, [id number] #### [facility] [address] [place] [address] Albumin [Mass/Vol] 3.8 g/dL Normal 3.3-5.0 [facility] Comment on above: Performed By: #### 2 858899, 3304260, 12854820, 66574028, 5428897, 2966395, 17959313, 02367431 #### [facility] [address] [place], [place] [id number] Albumin/Globulin (S) [Mass conc ratio] 0.8 Low 1.1-2.2 [facility] Comment on above: Performed By: #### 2 909763, 5743253, 95543269, 01211711, 8782758, 0855773, 01639212, 25121491 #### [facility] [address] [place] [address] ALP [Catalytic activity/Vol] 68 Int._Unit/L Normal 21-98 [facility] Comment on above: Performed By: #### 2 022903, 5532157, 35175053, 44601062, 4554468, 8699084, 64584014, 36081228 #### [facility] [address] [place], [place] [address] ALT No additional P-5'-P [Catalytic activity/Vol] 18 Int._Unit/L Normal 6-46 [facility] Comment on above: Performed By: #### 2 088946, 4013033, 09623105, 31673428, 0120715, 4539356, 61724601, 41687972 #### [facility] [address] [place] [address] AST [Catalytic activity/Vol] 20 Int._Unit/L Normal 5-43 [facility] Comment on above: Performed By: #### 2 409934, 0099705, 93238789, 69392827, 0164741, 5791185, 18911602, 54791237 #### [facility] [address] [place] [address] Bilirubin [Mass/Vol] 0.4 mg/dL Normal 0.0-1.1 [facility] Comment on above: Performed By: #### 2 066114, 9664865, 34708060, 52320804, 2248563, 4188564, 81275350, 45065063 #### [facility] [address] [place] [address] Globulin (S) [Mass/Vol] 4.5 g/dL High 1.4-4.0 [facility] Comment on above: Performed By: #### 2 992686, 4057580, 28870543, 64130681, 8632014, 2867404, 95089724, 11054339 #### [facility] [address] [place] [address] Protein [Mass/Vol] 8.3 g/dL High 6.0-7.8 [facility] Comment on above: Performed By: #### 2 490709, 7507720, 74842844, 02581536, 3978262, 4340638, 97341843, 19000013 #### [facility] [address] [place] [address] Bilirubin.direct [Mass/Vol] mg/dL Normal 0.1-0.4 [facility] Comment on above: Performed By: #### 2 717563, 1235693, 18288986, 31820195, 0500992, 1233446, 26615711, 03418340 #### [facility] [address] [place] [address] Monitor Recordon 09-08-2023 Monitor Record [id number] 1 [id number]# 1.00TIFF Normal [facility] Monitor Record [id number] 1 [id number]# 1.00TIFF Normal [facility] PT & PTTon 09-08-2023 aPTT Coag (PPP) [Time] 37.3 second(s) High 25.1-36.5 [facility] Comment on above: Result Comment: Para meter 15 days - 4 weeks 1 - 5 months 6 - 11 months 1 - 5 years 6 - 10 years 11 - 17 years PTT Mean: 35.4 (27.6-45.6) Mean: 33.5 (24.8-40.7) Mean: 32.4 (25.1-40.7) Mean: 31.6 (24.0-39.2) Mean: 31.6 (26.9-38.7) Mean: 31.0 (24.6-38.4) Pediatric Reference ranges were obtained from a study by dalila Mena al. prepared from 1437 samples obtained at 7 different centers using the same coagulation reagent and instrumentation as [facility]. Currently there are no coagulation studies available worldwide for children to 14 days, and no normal ranges. Heparin therapeutic range (represented by Anti-Factor Xa activity of 0.2 - 0.4 U/mL) corresponds to PTT of 56.6 - 109.0 sec. Performed By: #### 2 464384, 9499814, 87003358, 83967079, 8562657, 4932680, 01841774, 95266253 ####[facility] [address] [place] [address] INR Coag (PPP) [Relative time] 1.2 {INR} Invalid Interpretation Code [facility] Comment on above: Result Comment: INR results are specifically intended to assess patients stabilized on long-term Anticoagulation therapy suggested INR?s ?Less Intensive Anticoagulation? 2.0 ? 3.0 Conventional Range 3.0 ? 4.5 Performed By: #### 2 321517, 4324414, 54829881, 36254879, 7298242, 6279458, 69857371, 72459838 ####[facility] [address] [place] [address] PT Coag (PPP) [Time] 13.7 second(s) High 9.4-12.5 [facility] Comment on above: Result Comment: 15 d ays - 4 weeks 1 - 5 months 6 -11 months 1- 5 years 6-10 years 11 -17 years Mean: 11.2 (9.5-12.6) Mean: 11.0 (9.7-12.8) Mean: 11.0 (9.8-13.0) Mean: 11.3 (9.9-13.4) Mean: 11.7 (10.0-14.6) Mean: 11.8 (10.0 - 14.1) Pediatric Reference ranges were obtained from a study by dalila Mena al. prepared from 1437 samples obtained at 7 different centers using the same coagulation reagent and instrumentation as [facility]. Currently there are no coagulation studies available worldwide for children to 14 days, and no normal ranges. Performed By: #### 2 697442, 1508707, 58946646, 15856913, 4823410, 0947721, 09475119, 53683607 ####[facility] [address] [place] [address] Troponin 0 Hr.on 09-08-2023 Troponin I.cardiac [Mass/Vol] 4.70 pg/mL Low 10.10-27.10 [facility] Comment on above: Result Comment: The 95% CI (Confidence Interval) PPV (Positive Predictive Value) for myocardial infarction in females is 38 pg/mL, in males 51 pg/mL. The results should be used in conjunction with clinical conditions of myocardial infarction. (Access High Sensitivity Troponin I Instructions For Use, [employer], May 2018) Performed By: #### 2 893675, 0901114, 87063566, 96083622, 1919734, 1507967, 70208673, 02755088 #### [facility] [address] [place] [address] Troponin 3 Hr.on 09-08-2023 Troponin I.cardiac [Mass/Vol] 4.20 pg/mL Low 10.10-27.10 [facility] Comment on above: Result Comment: The 95% CI (Confidence Interval) PPV (Positive Predictive Value) for myocardial infarction in females is 38 pg/mL, in males 51 pg/mL. The results should be used in conjunction with clinical conditions of myocardial infarction. (Access High Sensitivity Troponin I Instructions For Use, [employer], May 2018) Performed By: #### 1 [id number] ####[facility] [address] [place] [address] eGFRon 09-08-2023 GFR/1.73 sq M.predicted among non-blacks MDRD (S/P/Bld) [Vol rate/Area] 52 mL/min/1.73 m2 Low >=59 [facility] Comment on above: Order Comment: Order added by Discern Expert. Result Comment: Agricultural Economics Teacher nita kidney disease could be indicated at eGFR's of less than 60 mL/min/1.73m2. Kidney failure is indicated at less than 15 mL/min/1.73m2. Performed By: #### 2 755812, 6263648, 23975826, 43788565, 7484494, 4024790, 90364082, 72174170 #### [facility] Laboratory [address] [place] [address] Office Visiton 07-20-2023 Follow-up visit [id number] Moore,Sis Rosales 1965 F Date Provider Department Center 07/20/2023 [address] [facility] Family History Problem Relation Age of Onset Coronary artery disease Other Pulmonary embolism Other Deep vein thrombosis Other Family Status - Relation Status Age at Other Level of Service:01695 ID OFFICE/OUTPATIENT ESTABLISHED LOW MDM 20-29 MIN Normal [facility] Consent for Treatmenton 07-01 Consent for Treatment [id number] .00CD:127 Normal [facility] Oncology Noteon 07-19-2023 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 Dr. Bob saw pt.I came in after visit. Treatment Plan: Continue Eliquis. Labs before f/u. Follow-Up Appointment Info/Referrals: F/U in 6 months. Resources Offered: Pt voiced no questions or concerns to me when I asked. I instructed in outpt lab when and where with understanding voiced. I instructed in continue Eliquis, pt states she has enough refills for now. I instructed to call when refills needed. Pt voiced understanding. To continue Eliquis for total of 6 months. Pt started in May. Normal [facility] Comment on above: Result Comment: Elec tronically Signed By: Tre CAZARES, Kristy\.br\Date and Time Signed: 07/19/23 11:12 EDT Oncology Progress Noteon Oncology Progress Note Patient: SIS MOORE Age: 57 years Sex: Female : 1965 Associated Diagnoses: None Author: Paulino BOOTHE, Roby Davis Chief Complaint She is here for results of the thrombophilia work up and decision about duration of anticoagulation for the acute PE diagnosed on 06/16/23. History of Present Illness Sis was referred to our hematology office at [facility] for Thrombophilia work up and decision about duration of anticoagulation for the acute PE diagnosed on . She is a 57-year-old female cigarette smoker with history of hypertension, xhc-qfjckdz-qwuxusjwv diabetes mellitus, obesity, chronic hypoxic respiratory failure on 3 L home oxygen, and depression who presented on 06/16/23 to [facility] ER with complaints of right-sided chest pain today. According to the patient she was in her usual state of health until today when she developed right-sided midsternal chest pain. She was at rest when she developed the pain. Pain is rated at 10/10. She denies any pain radiation. She denies any dizziness, shortness of breath, fever associated with pain. She denies any recent travels. She denies any hormonal therapy. She denies coronary artery disease. In the emergency room her D-dimer was elevated 559 and a chest CTA was performed that confirmed acute subsegmental pulmonary embolism and also revealed right adrenal nodule 1.2 cm and left adrenal nodule 1 cm. She was therefore admitted with chest pain secondary to acute pulmonary embolism, started on heparin infusion then switched to oral Eliguis 10 mg bid for one week then decreased to 5 mg bid. She is tolerating it well without any bleeding and no more CP but has her baseline WOODY but no SOB. She denied any hemoptysis. In terms of the adrenal gland nodules, they are incidental findings and never knew about them before. She denied any personal or family history of cancers. 07/19/23: She is here for results of the thrombophilia work up done on 06/28/23 and decision about duration of anticoagulation for the acute PE diagnosed on 06/16/23. She is taking her eliquis 5 mg bid and tolerating it well without any bleeding from any source. No CP or new SOB or hemoptysis and no leg pain or edema. ROS is otherwise negative. Review of Systems Constitutional: Negative. Eye: Negative. Ear/Nose/Mouth/Throat : Negative. Respiratory: Shortness of breath, No SOB at rest but same her baseline WOODY as before.. Cardiovascular: Negative. Gastrointestinal: Negative. Genitourinary: Negative. Hematology/Lymphatics : Negative. Endocrine: Negative. Immunologic: Negative. Musculoskeletal: Negative. Integumentary: Negative. Neurologic: Alert and oriented X4. Psychiatric: Negative. ROS reviewed as documented in chart Health Status Allergies: Allergic Reactions (Selected) No Known Medication Allergies Current medications: Home Medications (21) Active albuterol-ipratropium Inh Debby 3 mL UD 3 mL, Inhalation, QID Aspirin Low Dose 81 mg oral enteric coated tablet ATORVASTATIN CALCIUM 40 MG TABLET 0 Bevespi Aerosphere 9 mcg-4.8 mcg/inh inhalation aerosol 2 puff(s), Inhalation, BID busPIRone 15 mg Tab 15 mg = 1 tab(s), Oral, TID Daily Harvinder oral tablet 1 tab(s), Oral, Daily duloxetine 60 mg oral delayed release capsule Eliquis 5 mg oral tablet See Instructions Eliquis 5 mg oral tablet 5 mg = 1 tab(s), Oral, BID Flovent HFA 110 Aerosol 2 puff(s), Inhalation, BID fluticasone Nasal 0.05 mg/inh [place] 2 spray(s), Nasal, Daily furosemide 20 mg Tab 20 mg = 1 tab(s), Oral, Daily gabapentin 300 mg Cap 300 mg = 1 cap(s), Oral, BID hydrochlorothiazide-l isinopril 25 mg-20 mg Tab 1 tab(s), Oral, Daily lamotrigine 25 mg Tab 25 mg = 1 tab(s), Oral, BID pioglitazone 15 mg Tab 15 mg = 1 tab(s), Oral, Daily Potassium Chloride (Nrp-Jaat-Jdl 10) 10 mEq oral tablet, extended release pramipexole 0.5 mg oral tablet 0.5 mg = 1 tab(s), Oral, TID theophylline 300 mg ER Tab 300 mg = 1 tab(s), Oral, q12hr traZODONE 50 mg Tab 50 mg = 1 tab(s), Oral, Once a day (at bedtime) Ventolin HFA 90 mcg/inh Aerosol-Adpt 1 puff(s), PRN, Inhalation, QID , No qualifying data available Problem list: All Problems Smoker / SNOMED CT 419102378 / Confirmed Added secondary to documentation in Social History. Histories Past Medical History: No active or resolved past medical history items have been selected or recorded. Family History: History is unknown. Procedure history: delivery (SNOMED CT 9654554507) on 05/05/1987 at 21 Years. delivery (SNOMED CT 4271627111) on 06/20/1984 at 18 Years. Cyst (SNOMED CT 2091846329). Comments: 06/28/2023 11:00 EDT - Prisca Montoya Removal of cyst of right foot. Knee (SNOMED CT 605052538). Comments: 06/28/2023 11:01 EDT - Prisca Montoya surgery Social History Social & Psychosocial Habits Alcohol Comment: reji - 06/16/2023 16:10 - Kezia Catalan Substance Abuse Comment: reji - 06/16/2023 16:10 - Aundrea (more content not included)... Normal [facility] .VIPER VENOM MIXING STUDYon 07-08-2023 dRVVT w 1:1 PNP Coag (PPP) [Time] 47.4 second(s) High 0.0-40.4 [facility] Comment on above: Result Comment: Perf ormed at: [facility] [address] [id number] MD Tony Laird Performed By: #### 2 696072, 5039874, 16670357, 98815675, 0211158, 8381519, 99598935, 43254387 #### [facility] [address] [place] [address] MARY KATE ABS Ig G,M,Aon 3 Cardiolipin IgA IA Qn (S) <9 Invalid Interpretation Code 0-11 [facility] Comment on above: Result Comment: Nega tive: <12 Indeterminate: 12 - 20 Low-Med Positive: >20 - 80 High Positive: >80 Performed at: [facility] [address] [id number] PhD Matthew Funez Performed By: #### 1 [id number] #### [facility] [address] [place] [address] Cardiolipin IgG IA Qn (S) <9 Invalid Interpretation Code 0-14 [facility] Comment on above: Result Comment: Nega tive: <15 Indeterminate: 15 - 20 Low-Med Positive: >20 - 80 High Positive: >80 Performed By: #### 1 [id number] #### [facility] [address] [place] [address] Cardiolipin IgM IA Qn (S) <9 Invalid Interpretation Code 0-12 [facility] Comment on above: Result Comment: Nega tive: <13 Indeterminate: 13 - 20 Low-Med Positive: >20 - 80 High Positive: >80 Performed By: #### 1 [id number] #### [facility] [address] [place] [address] Beta-2 Glycoprot.i Aon 07-08 Beta 2 glycoprotein 1 IgA Qn (S) 19 Invalid Interpretation Code 0-25 [facility] Comment on above: Result Comment: The reference interval reflects a 3SD or 99th percentile interval, which is thought to represent a potentially clinically significant result in accordance with the International Consensus Statement on the classification criteria for definitive antiphospholipid syndrome (APS). J Thromb Haem 2006;4:295-306. Performed By: #### 2 782568, 0546141, 73487356, 72789200, 2615170, 9766443, 18675561, 69829231 #### [facility] [address] [place] [address] Beta 2 glycoprotein 1 IgG Qn (S) <9 Invalid Interpretation Code 0-20 [facility] Comment on above: Result Comment: The reference interval reflects a 3SD or 99th percentile interval, which is thought to represent a potentially clinically significant result in accordance with the International Consensus Statement on the classification criteria for definitive antiphospholipid syndrome (APS). J Thromb Haem 2006;4:295-306. Performed By: #### 2 710207, 7952561, 12660102, 60096533, 4621989, 6891623, 47315860, 66721964 #### [facility] [address] [place] [address] Beta 2 glycoprotein 1 IgM Qn (S) <9 Invalid Interpretation Code 0-32 [facility] Comment on above: Result Comment: The reference interval reflects a 3SD or 99th percentile interval, which is thought to represent a potentially clinically significant result in accordance with the International Consensus Statement on the classification criteria for definitive antiphospholipid syndrome (APS). J Thromb Haem 2006;4:295-306. Performed at: [facility] [id number] MD Tony Laird Performed By: #### 2 789806, 2026103, 81672157, 84000051, 3593808, 5418646, 83024779, 32364728 #### [facility] [address] [place] [address] Factor II, DNA Analysison F2 gene c.32962T>A genotype [employer] (Bld/Tiss) Comment Invalid Interpretation Code [facility] Comment on above: Result Comment: Resu lt: c.*97G>A - Not Detected This result is not associated with an increased risk for venous thromboembolism. See Additional Clinical Information and Comments. Additional Clinical Information: Venous thromboembolism is a multifactorial disease influenced by genetic, environmental, and circumstantial risk factors. The c.*97G>A variant in the F2 gene is a genetic risk factor for venous thromboembolism. Heterozygous carriers have a 2- to 4-fold increased risk for venous thromboembolism. Homozygotes for the c.*97G>A variant are rare. The annual risk of VTE in homozygotes has been reported to be 1.1%/year. Individuals who carry both a c.*97G>A variant in the F2 gene and a c.1601G>A (p. [id number]) variant in the F5 gene (commonly referred to as Factor V Leiden) have an approximately 20- fold increased risk for venous thromboembolism. Risks are likely to be even higher in more complex genotype combinations involving the F2 c.*97G>A variant and Factor V Leiden (PMID: 17375759). Additional risk factors include but are not limited to: deficiency of protein C, protein S, or antithrombin III, age, male sex, personal or family history of deep vein thromboembolism, smoking, surgery, prolonged immobilization, malignant neoplasm, tamoxifen treatment, raloxifene treatment, oral contraceptive use, hormone replacement therapy, and . Management of thrombotic risk and thrombotic events should follow established guidelines and fit the clinical circumstance. This result cannot predict the occurrence or recurrence of a thrombotic event. Comments: Genetic counseling is recommended to discuss the potential clinical implications of positive results, as well as recommendations for testing family members. Genetic Coordinators are available for health care providers to discuss results at [phone]). Test Details: Variant analyzed: c.*97G>A, previously referred to as [id number] Methods/Limitations: DNA analysis of the F2 gene (NM_000506.5) was performed by PCR amplification followed by restriction enzyme analysis. The diagnostic sensitivity is >99%. Results must be combined with clinical information for the most accurate interpretation. Molecular-based testing is highly accurate, but as in any laboratory test, diagnostic errors may occur. False positive or false negative results may occur for reasons that include genetic variants, blood transfusions, bone marrow transplantation, somatic or tissue-specific mosaicism, mislabeled samples, or erroneous representation of family relationships. This test was developed and its performance characteristics determined by [facility]. It has not been cleared or approved by the Food and Drug Administration. References: Aries Sarmiento, Enma BEJARANO, Mauricio R, Dre WW, Gabriel JH; A[employer] Professional Practice and Guidelines Committee. Addendum: [employer] consensus statement on factor V Leiden mutation testing. [employer]. 2020Jan 02. doi: 10.1038/w41811-990-84490-n. PMID: 48213137. Yarely CROCKETT. Prothrombin Thrombophilia. 2005May 24 [Updated 2020Dec 04]. In: Allen MP, Tim HH, Renee RA, et al., editors. Aren(R) [Internet]. [place] ([place]): [facility]; 4454-3591. Available from: https://www.ncbi.nlm.nih.gov/books/OBK8569/ Real Sarmiento, Enma BEJARANO, Jonel X, Gerry B, Santi EB, Amparo P, Humberto CS; [facility] Community Health Nurse Supervisor Committee. Venous thromboembolism laboratory testing (factor V Leiden and factor II c.*97G>A), 2018 update: a technical standard of the [employer] ([employer]MG). Tasha Med. 2018 Sep;20(12):9971-6665. doi: 10.1038/[id number]-c. Epub 2017Aug 04. PMID: 79561122. Performed By: #### 1 [id number] #### [facility] [address] [place] [address] Factor V Leidenon 07-08-2023 F5 gene p.Bno278Rtg [facility] (Bld/Tiss) Comment Invalid Interpretation Code [facility] Comment on above: Result Comment: Resu lt: c.1601G>A (p.Fhl587Apj) - Not Detected This result is not associated with an increased risk for venous thromboembolism. See Additional Clinical Information and Comments. Additional Clinical Information: Venous thromboembolism is a multifactorial disease influenced by genetic, environmental, and circumstantial risk factors. The c.1601G>A (p. Rjw623Bpi) variant in the F5 gene, commonly referred to as Factor V Leiden, is a genetic risk factor for venous thromboembolism. Heterozygous carriers of this variant have a 6- to 8-fold increased risk for venous thromboembolism. Individuals homozygous for this variant (ie, with a copy of the variant on each chromosome) have an approximately 80-fold increased risk for venous thromboembolism. Individuals who carry both a c.*97G>A variant in the F2 gene and Factor V Leiden have an approximately 20-fold increased risk for venous thromboembolism. Risks are likely to be even higher in more complex genotype combinations involving the F2 c.*97G>A variant and Factor V Leiden (PMID: 13033576). Additional risk factors include but are not limited to: deficiency of protein C, protein S, or antithrombin III, age, male sex, personal or family history of deep vein thromboembolism, smoking, surgery, prolonged immobilization, malignant neoplasm, tamoxifen treatment, raloxifene treatment, oral contraceptive use, hormone replacement therapy, and . Management of thrombotic risk and thrombotic events should follow established guidelines and fit the clinical circumstance. This result cannot predict the occurrence or recurrence of a thrombotic event. Comment: Genetic counseling is recommended to discuss the potential clinical implications of positive results, as well as recommendations for testing family members. Genetic Coordinators are available for health care providers to discuss results at [phone]). Test Details: Variant Analyzed: c.1601G>A (p. [id number]), referred to as Factor V Leiden Methods/Limitations: DNA analysis of the F5 gene (NM_000130.5) was performed by PCR amplification followed by restriction enzyme analysis. The diagnostic sensitivity is >99%. Results must be combined with clinical information for the most accurate interpretation. Molecular-based testing is highly accurate, but as in any laboratory test, diagnostic errors may occur. False positive or false negative results may occur for reasons that include genetic variants, blood transfusions, bone marrow transplantation, somatic or tissue-specific mosaicism, mislabeled samples, or erroneous representation of family relationships. This test was developed and its performance characteristics determined by [employer]. It has not been cleared or approved by the Food and Drug Administration. References: Aries S, Enma BEJARANO, Mauricio R, Dre WW, Gabriel JH; [facility] Professional Practice and Guidelines Committee. Addendum: [employer] consensus statement on factor V Leiden mutation testing. Tasha Med. 2020Jan 02. doi: 10.1038/[id number]-s. PMID: 80162370. Yarely CROCKETT. Factor V Leiden Thrombophilia. 1998March 13 (Updated 2017Nov 03). In: Allen MP, Tim HH, Renee RA, et al., editors. Aren(R) (Internet). [place] ([place]): [facility]; 0876-0699. Available from: https://www.ncbi.nlm.nih.gov/books/BZK2732/ Real Sarmiento, Enma BEJARANO, Jonel X, Gerry B, Santi EB, Amparo P, Humberto CS; [facility] Community Health Nurse Supervisor Committee. Venous thromboembolism laboratory testing (factor V Leiden and factor II c.*97G>A), 2018 update: a technical standard of the [employer] (ACMG). Tasha Med. 2017;20(12):3895-8612. doi: 10.1038/[id number]. Epub 2017Aug 04. PMID: 13379681. Performed By: #### 2 558489, 0008573, 76087480, 20282584, 0424664, 5195261, 75377661, 61830482 #### [facility] [address] [place] [address] Lupus Anticoagon 07-08-2023 aPTT.lupus sensitive Coag (PPP) [Time] 33.8 second(s) Invalid Interpretation Code 0.0-43.5 [facility] Comment on above: Performed By: #### 2 842021, 1917487, 97840029, 01855105, 8609627, 3863111, 22685696, 85328246 #### [facility] [address] [place] [address] dRVVT Coag (PPP) [Time] 57.5 second(s) High 0.0-47.0 [facility] Comment on above: Result Comment: Perf ormed at: [facility] [id number] MD Tony Laird Performed By: #### 2 958761, 1824279, 66116337, 88714701, 9493703, 6789617, 71454515, 27376762 #### [facility] [address] [place] [address] Lupus anticoagulant two screening tests W Reflex Coag (PPP) [Interp] Comment: Invalid Interpretation Code [facility] Comment on above: Result Comment: No l upus anticoagulant was detected. These results are consistent with specific inhibitors to one or more common pathway factors (X, V, II or fibrinogen). Performed at: [facility] [address] [place] [address] [id number] MD Tony Laird Performed By: #### 2 598291, 4860146, 64246159, 23803687, 6573999, 6760336, 38323706, 11700587 #### [facility] [address] [place] [address] dRVVT CONFIRMon 07-08-2023 dRVVT/dRVVT.excess phospholipid Coag (PPP) [Ratio] 1.0 ratio Invalid Interpretation Code 0.8-1.2 [facility] Comment on above: Result Comment: Perf ormed at: [facility] [id number] MD Tony Laird Performed By: #### 2 025827, 2542909, 08636977, 74328515, 4840050, 3391368, 55434746, 37091045 #### [facility] [address] [place] [address] Consenton 07-07-2023 Consent [id number] 1.00CD:127 Normal [facility] Lab Miscellaneous-LCon 07-01 Lab Miscellaneous COMMENT Invalid Interpretation Code [facility] Comment on above: Result Comment: Test Ordered: 208854 Protein S-Functional Protein S-Functional 98 % BN Reference Range: 63-140 Protein S activity may be falsely increased (masking an abnormal, low result) in patients receiving direct Xa inhibitor (e.g., rivaroxaban, apixaban, edoxaban) or a direct thrombin inhibitor (e.g., dabigatran) anticoagulant treatment due to assay interference by these drugs. Performed at: [facility] [id number] PhD Matthew Funez Performed By: #### 1 [id number] #### [facility] [address] [place] [address] Protein S-antigenon 07-01-20 23 Protein S Ag actual/normal IA (PPP) [Relative mass conc] 99 % Invalid Interpretation Code 60-150 [facility] Comment on above: Result Comment: This test was developed and its performance characteristics determined by [employer]. It has not been cleared or approved by the Food and Drug Administration. Performed By: #### 2 969364, 9150854, 68841282, 54423270, 8021336, 1949613, 81296969, 00874773 #### [facility] [address] [place] [address] Protein S Free Ag actual/normal IA (PPP) [Relative mass conc] 93 % Invalid Interpretation Code 61-136 [facility] Comment on above: Result Comment: Perf ormed at: [facility] [address] [place], [place] [id number] MD Tony Laird Performed By: #### 2 803274, 3772776, 96091023, 08418394, 4586232, 4301841, 95105706, 58061560 #### [facility] [address] [place] [address] Lab Miscellaneous-LCon 06-30 Lab Miscellaneous COMMENT Invalid Interpretation Code [facility] Comment on above: Result Comment: Test Ordered: 089548 Antithrombin Activity Antithrombin Activity 146 [H ] % BN Reference Range: 75-135 An elevated antithrombin activity is of no known clinical significance. Direct Xa inhibitor anticoagulants such as rivaroxaban, apixaban and edoxaban will lead to spuriously elevated antithrombin activity levels possibly masking a deficiency. Performed at: [facility] [id number] PhD Matthew Funez Performed By: #### 2 597801, 1120612, 72264287, 52300040, 4730856, 9243258, 57497954, 79142534 #### [facility] [address] [place] [address] Result Comment: Test Ordered: [id number] Protein C-Functional Protein C-Functional 140 % BN Reference Range: 73-180 Performed at: [facility] [address] [place], [place] [id number] PhD Matthew Funez Auto Diffon 06-28-2023 Basophils/100 WBC (Bld) 0.6 % Normal 0.0-2.0 [facility] Comment on above: Order Comment: order able test Performed By: #### 1 [id number] #### [facility] [address] [place] [address] Basophils/Leukocytes Auto (Bld) [Pure # fraction] 0.0 E9/L Normal 0.0-0.2 [facility] Comment on above: Order Comment: order able test Performed By: #### 1 [id number] #### [facility] [address] [place] [address] Eosinophils/100 WBC (Bld) 0.7 % Normal 0.0-8.0 [facility] Comment on above: Order Comment: order able test Performed By: #### 1 [id number] #### [facility] [address] [place] [address] Eosinophils/Leukocytes Auto (Bld) [Pure # fraction] 0.1 E9/L Normal 0.0-0.5 [facility] Comment on above: Order Comment: order able test Performed By: #### 1 [id number] #### [facility] [address] [place] [address] Lymphocytes/100 WBC (Bld) 12.9 % Low 14.0-50.0 [facility] Comment on above: Order Comment: order able test Performed By: #### 1 [id number] #### [facility] [address] [place] [address] Lymphocytes/Leukocytes Auto (Bld) [Pure # fraction] 1.0 E9/L Normal 1.0-4.0 [facility] Comment on above: Order Comment: order able test Performed By: #### 1 [id number] #### [facility] [address] [place] [address] Monocytes/100 WBC (Bld) 6.8 % Normal 4.0-14.0 [facility] Comment on above: Order Comment: order able test Performed By: #### 1 [id number] #### [facility] [address] [place] [address] Monocytes/Leukocytes Auto (Bld) [Pure # fraction] 0.5 E9/L Normal 0.2-1.0 [facility] Comment on above: Order Comment: order able test Performed By: #### 1 [id number] #### [facility] [address] [place] [address] Neutrophils/100 WBC (Bld) 79.0 % High 36.0-75.0 [facility] Comment on above: Order Comment: order able test Performed By: #### 1 [id number] #### [facility] [address] [place] [address] Neutrophils/Leukocytes Auto (Bld) [Pure # fraction] 6.1 E9/L Normal 2.0-7.5 [facility] Comment on above: Order Comment: order able test Performed By: #### 1 [id number] #### [facility] [address] [place] [address] CBC w/ Auto Diffon Erythrocyte distribution width (RBC) [Ratio] 14.7 % High 10.9-14.2 [facility] Comment on above: Performed By: #### 1 [id number] #### [facility] [address] [place] [address] Hematocrit (Bld) [Volume fraction] 38.9 % Normal 34.0-46.0 [facility] Comment on above: Performed By: #### 1 [id number] #### [facility] [address] [place] [address] Hemoglobin (Bld) [Mass/Vol] 13.1 g/dL Normal 12.0-16.0 [facility] Comment on above: Performed By: #### 1 [id number] #### [facility] [address] [place] [address] MCH (RBC) [Entitic mass] 29.4 pg Normal 27.0-34.0 [facility] Comment on above: Performed By: #### 1 [id number] #### [facility] [address] [place] [address] MCHC (RBC) [Mass/Vol] 33.6 g/dL Normal 31.4-36.0 [facility] Comment on above: Performed By: #### 1 [id number] #### [facility] [address] [place] [address] MCV (RBC) [Entitic vol] 87.4 fL Normal 80.0-100.0 [facility] Comment on above: Performed By: #### 1 [id number] #### [facility] [address] [place] [address] Platelet mean volume (Bld) [Entitic vol] 10.7 fL Normal 6.4-10.8 [facility] Comment on above: Performed By: #### 1 [id number] #### [facility] [address] [place] [address] Platelets (Bld) [#/Vol] 183.0 E9/L Normal 150.0-500.0 [facility] Comment on above: Performed By: #### 1 [id number] #### [facility] [address] [place] [address] RBC (Bld) [#/Vol] 4.5 E12/L Normal 4.3-5.9 [facility] Comment on above: Performed By: #### 1 [id number] #### [facility] [address] [place] [address] WBC corrected for nucl RBC Auto (Bld) [#/Vol] 7.7 E9/L Normal 4.0-11.0 [facility] Comment on above: Performed By: #### 1 [id number] #### [facility] [address] [place] [address] CMPon 06-28-2023 Albumin [Mass/Vol] 3.9 g/dL Normal 3.3-5.0 [facility] Comment on above: Performed By: #### 1 [id number] #### [facility] [address] [place] [address] Albumin/Globulin (S) [Mass conc ratio] 0.9 Low 1.1-2.2 [facility] Comment on above: Performed By: #### 1 [id number] #### [facility] [address] [place] [address] ALP [Catalytic activity/Vol] 69 Int._Unit/L Normal 21-98 [facility] Comment on above: Performed By: #### 1 [id number] #### [facility] [address] [place] [address] ALT No additional P-5'-P [Catalytic activity/Vol] 19 Int._Unit/L Normal 6-46 [facility] Comment on above: Performed By: #### 1 [id number] #### [facility] [address] [place] [address] Anion gap [Moles/Vol] 13 mmol/L Normal 6-16 [facility] Comment on above: Performed By: #### 1 [id number] #### [facility] [address] [place] [address] AST [Catalytic activity/Vol] 22 Int._Unit/L Normal 5-43 [facility] Comment on above: Performed By: #### 1 [id number] #### [facility] [address] [place] [address] Bilirubin [Mass/Vol] 0.4 mg/dL Normal 0.0-1.1 [facility] Comment on above: Performed By: #### 1 [id number] #### [facility] [address] [place] [address] Calcium [Mass/Vol] 9.8 mg/dL Normal 8.9-11.1 [facility] Comment on above: Performed By: #### 1 [id number] #### [facility] [address] [place] [address] Chloride [Moles/Vol] 98 mmol/L Low 101-111 [facility] Comment on above: Performed By: #### 1 [id number] #### [facility] [address] [place] [address] CO2 [Moles/Vol] 29 mmol/L Normal 21-31 [facility] Comment on above: Performed By: #### 1 [id number] #### [facility] [address] [place] [address] Creatinine [Mass/Vol] 0.9 mg/dL Normal 0.5-1.3 [facility] Comment on above: Performed By: #### 1 [id number] #### [facility] [address] [place] [address] Globulin (S) [Mass/Vol] 4.3 g/dL High 1.4-4.0 [facility] Comment on above: Performed By: #### 1 [id number] #### [facility] [address] [place] [address] Glucose [Mass/Vol] 155 mg/dL Normal 55-199 [facility] Comment on above: Result Comment: If t his glucose result represents a fasting glucose, interpretation should refer to the following reference range: 55-99 mg/dL Performed By: #### 1 [id number] #### [facility] [address] [place] [address] Potassium [Moles/Vol] 3.9 mmol/L Normal 3.5-5.3 [facility] Comment on above: Performed By: #### 1 [id number] #### [facility] [address] [place] [address] Protein [Mass/Vol] 8.2 g/dL High 6.0-7.8 [facility] Comment on above: Performed By: #### 1 [id number] #### [facility] [address] [place] [address] Sodium [Moles/Vol] 136 mmol/L Normal 135-145 [facility] Comment on above: Performed By: #### 1 [id number] #### [facility] [address] [place] [address] Urea nitrogen [Mass/Vol] 22 mg/dL High 5-21 [facility] Comment on above: Performed By: #### 1 [id number] #### [facility] [address] [place] [address] Urea nitrogen/Creatinine [Mass ratio] 24 No Units High 10-20 [facility] Comment on above: Performed By: #### 1 [id number] #### [facility] [address] [place] [address] Consent for Treatmenton 06-01 Consent for Treatment [id number] .[id number]:127 Normal [facility] Consent for Treatment [id number] .[id number]:127 Normal [facility] D-Dimeron 06-28-2023 Fibrin D-dimer FEU (PPP) [Mass/Vol] 392 [id number] Normal 215-500 [facility] Comment on above: Result Comment: This assay is intended for use as an aid in the diagnosis of DVT or PE. These conditions cannot be excluded with certainty solely on the basis of a D-dimer concentration being within the reference range This D-Dimer assay may be used in conjunction with a non-high clinical pretest probability assessment to exclude deep-vein thrombosis(DVT). For exclusion of venous thrombosis or pulmonary embolism the analyte D-Dimer should not be used as an aid in patients with: Therapeutic dose anticoagulant therapy for >24 hours Fibrinolytic therapy within previous 7 days Trauma or surgery within previous 4 weeks Disseminated malignacies Aortic aneurysm Sepsis, severe infections, pneumonia, severe skin infections Liver cirrhosis Performed By: #### 1 [id number] #### [facility] [address] [place] [address] Lab Miscellaneous-LCon 06-28 Lab Miscellaneous orderable test Invalid Interpretation Code [facility] Comment on above: Order Comment: order able test Performed By: #### 1 [id number] #### [facility] [address] [place] [address] Test Code 311054 Invalid Interpretation Code [facility] Comment on above: Order Comment: order able test Performed By: #### 1 [id number] #### [facility] [address] [place] [address] Test Code 313090 Invalid Interpretation Code [facility] Comment on above: Performed By: #### 1 [id number] #### [facility] [address] [place] [address] Test Code 009735 Invalid Interpretation Code [facility] Comment on above: Performed By: #### 2 878151, 2932164, 77585061, 23005468, 9127088, 3477649, 64707292, 14220074 #### [facility] [address] [place] [address] Test Code 802301 Invalid Interpretation Code [facility] Comment on above: Performed By: #### 2 023018, 4198320, 96465540, 57422712, 3528551, 1032032, 08871273, 19949910 #### [facility] [address] [place] [address] Test Name Prot s, ant Invalid Interpretation Code [facility] Comment on above: Order Comment: order able test Performed By: #### 1 [id number] #### [facility] [address] [place] [address] Test Name Prot S, func Invalid Interpretation Code [facility] Comment on above: Performed By: #### 1 [id number] #### [facility] [address] [place] [address] Test Name AntiThromb III Invalid Interpretation Code [facility] Comment on above: Performed By: #### 2 407855, 8691142, 95087215, 74999317, 0777884, 8465966, 91586916, 62172704 #### [facility] [address] [place] [address] Test Name Prot C, func Invalid Interpretation Code [facility] Comment on above: Performed By: #### 2 433695, 0492579, 39586448, 35040486, 1532015, 8966658, 48326430, 57335198 #### [facility] [address] [place] [address] Oncology Noteon 06-28-2023 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 I accompanied Dr. Bob in room. explained disease and treatment for same. also took pt's history. Treatment Plan: Eliquis 5 mg PO BID. thrombophilia labs as directed. Follow-Up Appointment Info/Referrals: F/U in 3 weeks. Resources Offered: I gave pt my contact information and Dr. Bob and instructed to call with any questions or concerns. I instructed in labs when and where with understanding voiced. Pt/family members voiced no questions or concerns to me at this time. Normal [facility] Comment on above: Result Comment: Elec tronically Signed By: Tre CAZARES, Kristy\.br\Date and Time Signed: 06/28/23 11:35 EDT Oncology Progress Noteon Oncology Progress Note Patient: SIS MOORE Age: 57 years Sex: Female : 1965 Associated Diagnoses: None Author: Paulino BOOTHE, Roby Davis Chief Complaint Thrombophilia work up and decision about duration of anticoagulation for the acute PE diagnosed on . History of Present Illness Sis was referred to our hematology office at [facility] for Thrombophilia work up and decision about duration of anticoagulation for the acute PE diagnosed on . She is a 57-year-old female cigarette smoker with history of hypertension, ixc-cbjuyzq-wjxkcfjyf diabetes mellitus, obesity, chronic hypoxic respiratory failure on 3 L home oxygen, and depression who presented on 06/16/23 to [facility] ER with complaints of right-sided chest pain today. According to the patient she was in her usual state of health until today when she developed right-sided midsternal chest pain. She was at rest when she developed the pain. Pain is rated at 10/10. She denies any pain radiation. She denies any dizziness, shortness of breath, fever associated with pain. She denies any recent travels. She denies any hormonal therapy. She denies coronary artery disease. In the emergency room her D-dimer was elevated 559 and a chest CTA was performed that confirmed acute subsegmental pulmonary embolism and also revealed right adrenal nodule 1.2 cm and left adrenal nodule 1 cm. She was therefore admitted with chest pain secondary to acute pulmonary embolism, started on heparin infusion then switched to oral Eliguis 10 mg bid for one week then decreased to 5 mg bid. She is tolerating it well without any bleeding and no more CP but has her baseline WOODY but no SOB. She denied any hemoptysis. In terms of the adrenal gland nodules, they are incidental findings and never knew about them before. She denied any personal or family history of cancers. Review of Systems Constitutional: Negative. Eye: Negative. Ear/Nose/Mouth/Throat : Negative. Respiratory: Shortness of breath, No SOB at rest but same her baseline WOODY as before.. Cardiovascular: Negative. Gastrointestinal: Negative. Genitourinary: Negative. Hematology/Lymphatics : Negative. Endocrine: Negative. Immunologic: Negative. Musculoskeletal: Negative. Integumentary: Negative. Neurologic: Alert and oriented X4. Psychiatric: Negative. ROS reviewed as documented in chart Health Status Allergies: Allergic Reactions (Selected) No Known Medication Allergies Current medications: Home Medications (20) Active albuterol-ipratropium Inh Debby 3 mL UD 3 mL, Inhalation, QID Aspirin Low Dose 81 mg oral enteric coated tablet ATORVASTATIN CALCIUM 40 MG TABLET 0 Bevespi Aerosphere 9 mcg-4.8 mcg/inh inhalation aerosol 2 puff(s), Inhalation, BID busPIRone 15 mg Tab 15 mg = 1 tab(s), Oral, TID Daily Harvinder oral tablet 1 tab(s), Oral, Daily duloxetine 60 mg oral delayed release capsule Eliquis 5 mg oral tablet See Instructions Flovent HFA 110 Aerosol 2 puff(s), Inhalation, BID fluticasone Nasal 0.05 mg/inh [place] 2 spray(s), Nasal, Daily furosemide 20 mg Tab 20 mg = 1 tab(s), Oral, Daily gabapentin 300 mg Cap 300 mg = 1 cap(s), Oral, BID hydrochlorothiazide-l isinopril 25 mg-20 mg Tab 1 tab(s), Oral, Daily lamotrigine 25 mg Tab 25 mg = 1 tab(s), Oral, BID pioglitazone 15 mg Tab 15 mg = 1 tab(s), Oral, Daily Potassium Chloride (Ykx-Hliy-Kob 10) 10 mEq oral tablet, extended release pramipexole 0.5 mg oral tablet 0.5 mg = 1 tab(s), Oral, TID theophylline 300 mg ER Tab 300 mg = 1 tab(s), Oral, q12hr traZODONE 50 mg Tab 50 mg = 1 tab(s), Oral, Once a day (at bedtime) Ventolin HFA 90 mcg/inh Aerosol-Adpt 1 puff(s), PRN, Inhalation, QID , No qualifying data available Problem list: All Problems Smoker / SNOMED CT 200175788 / Confirmed Added secondary to documentation in Social History. Histories Past Medical History: No active or resolved past medical history items have been selected or recorded. Family History: History is unknown. Procedure history: delivery (SNOMED CT 6065767773) on 05/05/1987 at 21 Years. delivery (SNOMED CT 3694552408) on 06/20/1984 at 18 Years. Cyst (SNOMED CT 0382235659). Comments: 06/28/2023 11:00 EDT - Prisca Montoya Removal of cyst of right foot. Knee (SNOMED CT 905433931). Comments: 06/28/2023 11:01 EDT - Prisca Montoya surgery Social History Social & Psychosocial Habits Alcohol Comment: denies - 06/16/2023 16:10 - Kezia Catalan Substance Abuse Comment: denies - 06/16/2023 16:10 - Kezia Catalan Tobacco 06/28/2023 Tobacco Use: Former smoker, quit more Type: Cigarettes Concerns about tobacco use in household: No Smoking Cessation Yes Comment: 1/2 pack a day - 06/16/2023 16:10 - Kezia Catalan; Quit 06/19/23 - 06/28/2023 11:01 - Prisca Montoya . Physical Examination Vital Signs 06/28/2023 10:00 EDT Temperature Oral 36.7 DegC Peripheral Pulse Rate 101 bpm HI Respiratory Rate 16 (more content not included)... Normal [facility] eGFRon 06-28-2023 GFR/1.73 sq M.predicted among non-blacks MDRD (S/P/Bld) [Vol rate/Area] 74 mL/min/1.73 m2 Normal >=59 [facility] Comment on above: Order Comment: order able test Result Comment: Agricultural Economics Teacher nita kidney disease could be indicated at eGFR's of less than 60 mL/min/1.73m2. Kidney failure is indicated at less than 15 mL/min/1.73m2. Performed By: #### 1 [id number] #### [facility] Laboratory [address] [place] [address] Discharge Instructionson Discharge Instructions [id number]# 1.00CD:127 Normal [facility] CHEMISTRYOrdered By: Lab ROP User on 06-17-2023 Glucose [Mass/Vol] 109 mg/dL High 55 - 99 mg/dL [facility] POC Subsection Comment on above: Result Comment: Rafaela VELASQUEZ POC Device SN [id number] Invalid Interpretation Code FT POC Subsection POC User ID [id number] Invalid Interpretation Code [facility] POC Subsection POC Username BRENDA KHAN Invalid Interpretation Code [facility] POC Subsection Glucose [Mass/Vol] 133 mg/dL High 55 - 99 mg/dL [facility] POC Subsection Comment on above: Result Comment: Rafaela VELASQUEZ POC Device SN [id number] Invalid Interpretation Code FT POC Subsection POC User ID [id number] Invalid Interpretation Code FT POC Subsection POC Username FAVIOLA MURO Invalid Interpretation Code [facility] POC Subsection Glucose [Mass/Vol] 109 mg/dL High 55 - 99 mg/dL [facility] POC Subsection Comment on above: Result Comment: Rafaela VELASQUEZ POC Device SN [id number] Invalid Interpretation Code FT POC Subsection POC User ID [id number] Invalid Interpretation Code [facility] POC Subsection POC Username BRENDA KHAN Invalid Interpretation Code [facility] POC Subsection CHEMISTRYOrdered By: Kimberley Freeman on 06-17-2023 HbA1c (Bld) [Mass fraction] 5.7 % Normal <=5.9% [facility] ChemAutoSS CHEMISTRYOrdered By: SYSTEM SYSTEM on 06-17-2023 Troponin I.cardiac [Mass/Vol] 5.20 pg/mL Low 10.10 - 27.10 pg/mL [facility] Remisol Capillary Glucose POCon 05-31 Glucose [Mass/Vol] 109 mg/dL High 55-99 [facility] Comment on above: Result Comment: Rafaela VELASQUEZ Performed By: #### 2 [id number] ####[facility] [id number] [place] [address] Glucose [Mass/Vol] 133 mg/dL High 55-99 [facility] Comment on above: Result Comment: Rafaela garzon RN/ Performed By: #### 2 [id number] #### [facility] Laboratory [address] [place] [address] Glucose [Mass/Vol] 109 mg/dL High 55-99 [facility] Comment on above: Result Comment: Rafaela VELASQUEZ Performed By: #### 2 [id number] #### [facility] Laboratory [address] [place] [address] Discharge Note-Nursingon Discharge Note-Nursing SIS MOORE Connie :1965 Visit Date:06/16/2023 Inpatient Discharge Instructions Your Care Team Admitting Physician - JANETTE BOOTHE, [facility] Reason for Your Visit Right after I ate, chest pain really went so bad Your Diagnosis Chest pain Acute pulmonary embolism Sinus tachycardia COPD without exacerbation Hypertension Diabetes mellitus Depression Chronic hypoxemic respiratory failure Obese Smoker On deep vein thrombosis (DVT) prophylaxis Chest pain Tests Performed Automated Diff BMP Capillary Glucose POC CBC w/ Auto Diff D-Dimer eGFR Hemoglobin A1c PT & PTT Troponin 0 Hr. Troponin 3 Hr. Troponin 6 Hr. Troponin 9 Hr. CTA Chest Echo Transthoracic Complete -- Results Pending -- US LE Venous Duplex Bilateral XR Chest Single View Please visit your patient portal for your results or contact your primary care physician. This Is Your Medications List [facility] Prescription (ATORVASTATIN CALCIUM 40 MG TABLET) albuterol (Ventolin HFA 90 mcg/inh Aerosol-Adpt) albuterol-ipratropium (albuterol-ipratropiu m Inh Debby 3 mL UD) apixaban (Eliquis 5 mg oral tablet) aspirin (Aspirin Low Dose 81 mg oral enteric coated tablet) busPIRone (busPIRone 15 mg Tab) duloxetine (duloxetine 60 mg oral delayed release capsule) fluticasone (Flovent HFA 110 Aerosol) fluticasone nasal (fluticasone Nasal 0.05 mg/inh [place]) formoterol-glycopyrro late (Bevespi Aerosphere 9 mcg-4.8 mcg/inh inhalation aerosol) furosemide (furosemide 20 mg Tab) gabapentin (gabapentin 300 mg Cap) hydrochlorothiazide-l isinopril (hydrochlorothiazide- lisinopril 25 mg-20 mg Tab) lamotrigine (lamotrigine 25 mg Tab) multivitamin (Daily Harvinder oral tablet) pioglitazone (pioglitazone 15 mg Tab) potassium chloride (Potassium Chloride (Aae-Vkfl-Ctw 10) 10 mEq oral tablet, extended release) pramipexole (pramipexole 0.5 mg oral tablet) theophylline (theophylline 300 mg ER Tab) trazodone (traZODONE 50 mg Tab) [Image Removed: STOP]Stop taking these medications celecoxib (celecoxib 200 mg Cap) Discharge Vitals Temperature (Axillary) 36.6 ?C Heart Rate (Monitored) 87 Respiratory Rate 18 Blood Pressure 125/66 Height 175.26 cm Weight 113.9 kg BMI 37.18 What to do next Instructions From Your Doctor Event Name Event Result Discharge Activity Ambulate as tolerated, Activity as tolerated Discharge Diet(s) Low Sodium- 2000 mg Pending Diagnostic Test Results None Discharge Instructions AVOID NSAIDS Previously Scheduled Follow-Up Appointments Tuesday 11:00 AM EDT Where: Oncology New Follow Up Appointments after Discharge Follow Up with Ezekiel Christian When: 06/28/2023 11:00 AM EDT Where: [facility] [address] [place], [place] [address] [address]- Follow Up with LINK HAMEED When: Within 1 week Comments: A voice message is left with this office with your information so they can call you for a follow up appiontment. Please call them if you do not hear from them in a few days. Thank you. Where: [address] [place] [address] [phone] Business (1) Medications What How Much When Why Instructions Next Dose New apixaban (Eliquis 5 mg oral tablet) See instructions Acute pulmonary embolism 2 tab(s) Oral BID x 6 days then 1 tab oral BID x 30 days Printed Prescription 06/17 @ PM 2 tablets (twice daily) 06/23: Start 1 tablet twice daily Unchanged albuterol (Ventolin HFA 90 mcg/ inh Aerosol-Adpt) 1 Puffs Inhalation 4 times a day as needed for for wheezing NEEDED FOR WHEEZING Unchanged albuterol-ipratropium (albuterol-ipratropiu m Inh Debby 3 mL UD) 3 Milliliter Inhalation 4 times a day 06/17 @ PM Unchanged aspirin (Aspirin Low Dose 81 mg oral enteric coated tablet) Every day 06/18 AM Unchanged busPIRone (busPIRone 15 mg Tab) 1 Tablets By Mouth 3 times a day 06/17 PM Unchanged duloxetine (duloxetine 60 mg oral delayed release capsule) Every day 06/18 AM Unchanged fluticasone (Flovent HFA 110 Aerosol) 2 Puffs Inhalation 2 times a day 06/17 PM Unchanged fluticasone nasal (fluticasone Nasal 0.05 mg/ inh [place]) 2 Sprays Nasal Inhalation Every day each nostril 06/18 AM Unchanged formoterol-glycopyrro late (Bevespi Aerosphere 9 mcg-4.8 mcg/ inh inhalation aerosol) 2 Puffs Inhalation 2 times a day 06/17 @ PM Unchanged furosemide (furosemide 20 mg Tab) 1 Tablets By Mouth Every day 06/18 AM Unchanged gabapentin (gabapentin 300 mg Cap) 1 Capsules By Mouth 2 times a day 06/17 @ PM Unchanged hydrochlorothiazide-l isinopril (hydrochlorothiazide- lisinopril 25 mg-20 mg Tab) 1 Tablets By Mouth Every day 06/18 AM Unchanged lamotrigine (lamotrigine 25 mg Tab) 1 Tablets By Mouth 2 times a day 06/17 PM Unchanged Misc Prescription (ATORVASTATIN CALCIUM 40 MG TABLET) 0 Every day 06/18 AM Unchanged multivitamin (Daily Harvinder oral tablet) 1 Tablets By Mouth Every day 06/18 (more content not included)... Normal [facility] [id number] 06-17-2023 HbA1c (Bld) [Mass fraction] 5.7 % Normal <=5.9 [facility] Comment on above: Performed By: #### 2 [id number], [id number], [id number], [id number], [id number] #### Miguel A [facility] Laboratory [address] [place] [address] Inpatient Clinical Summaryon 06-17-2023 Inpatient Clinical Summary [address] [address] Clinical Summary Person Information: Name: SIS MOORE Age: 57 Years : 1965 Sex: Female PCP: LINK HAMEED CNP Marital Status: Race: White Ethnicity: Non- or Language: Citizen Of [place] Visit Id: Visit Reason: Chest pain; MID STERNUM PAIN Speciality: Acuity: Enc Type: Observation Med Service: Medical Arrival: 06/16/2023 15:45:03 Discharge: Dispo Type: Admitted as IP to this Hosp Address: [address] [place] [phone] Provider Notes: Diagnosis: 1:Chest pain; 2:Acute pulmonary embolism; 3:Sinus tachycardia; 4:COPD without exacerbation; 5:Hypertension; 6:Diabetes mellitus; 7:Depression; 8:Chronic hypoxemic respiratory failure; 9:Obese; 10:Smoker; 11:On deep vein thrombosis (DVT) prophylaxis Problems Active Smoker Smoking Status: Current Every Day Smoker Functional Status: Sensory Deficits: History of Falls: Mobility Assistance Prior to Admission: ADLs: Independent Current Level of Assistance for Self-Care/Mobility: Cognitive Status: Oriented x 3 Allergies No Known Medication Allergies Measurements: Height: 175.26 cm Weight: 113.9 kg Blood Pressure: 134 mmHg / 71 mmHg BMI: 37.18 kg/m2 Procedures No Procedures Documented Immunizations No Immunizations Documented This Visit Final Med List: albuterol (Ventolin HFA 90 mcg/inh Aerosol-Adpt) 1 Puffs Inhalation 4 times a day as needed for wheezing. albuterol-ipratropium (albuterol-ipratropiu m Inh Debby 3 mL UD) 3 Milliliter Inhalation 4 times a day. apixaban (Eliquis 5 mg oral tablet) 2 tab(s) Oral BID x 6 days then 1 tab oral BID x 30 days. Refills: 0. aspirin (Aspirin Low Dose 81 mg oral enteric coated tablet) busPIRone (busPIRone 15 mg Tab) 1 Tablets By Mouth 3 times a day. duloxetine (duloxetine 60 mg oral delayed release capsule) fluticasone (Flovent HFA 110 Aerosol) 2 Puffs Inhalation 2 times a day. fluticasone nasal (fluticasone Nasal 0.05 mg/inh [place]) 2 Sprays Nasal Inhalation every day. each nostril. formoterol-glycopyrro late (Bevespi Aerosphere 9 mcg-4.8 mcg/inh inhalation aerosol) 2 Puffs Inhalation 2 times a day. furosemide (furosemide 20 mg Tab) 1 Tablets By Mouth every day. gabapentin (gabapentin 300 mg Cap) 1 Capsules By Mouth 2 times a day. hydrochlorothiazide-l isinopril (hydrochlorothiazide- lisinopril 25 mg-20 mg Tab) 1 Tablets By Mouth every day. lamotrigine (lamotrigine 25 mg Tab) 1 Tablets By Mouth 2 times a day. Misc Prescription (ATORVASTATIN CALCIUM 40 MG TABLET) 0. multivitamin (Daily Harvinder oral tablet) 1 Tablets By Mouth every day. pioglitazone (pioglitazone 15 mg Tab) 1 Tablets By Mouth every day. potassium chloride (Potassium Chloride (Lhs-Cesz-Bcn 10) 10 mEq oral tablet, extended release) pramipexole (pramipexole 0.5 mg oral tablet) 1 Tablets By Mouth 3 times a day. theophylline (theophylline 300 mg ER Tab) 1 Tablets By Mouth every 12 hours. trazodone (traZODONE 50 mg Tab) 1 Tablets By Mouth once a day (at bedtime). Care Team Members: Attending Physician: JANETTE BOOTHE, Alex Consulting Physician: Referring Physician: Follow up: With: Address: When: LINK HAMEED [address] [place], [place] [phone] Business (1) Within 1 week Comments: A voice message is left with this office with your information so they can call you for a follow up appiontment. Please call them if you do not hear from them in a few days. Thank you. With: Address: When: Ezekiel Christian [facility], [address] [place] [address] 06/28/2023 11:00 AM Type Location Start Finish State ONC Office Visit New 45 (FT) FT.ONCOLOGY 06/28/2023 11:00 AM 06/28/2023 11:45 AM Confirmed Patient Education Information: Normal [facility] Inpatient Patient Summaryon 06-17-2023 Inpatient Patient Summary [address] [address] Patient Discharge Instructions PERSON INFORMATION Name: SIS MOORE Date of : 1965 Current Date: 06/17/2023 09:58:26 PHYSICIANS Admitting Physician: Alex BARRIENTOS MD Primary Care Physician: LINK HAMEED CNP PCP Phone Number: [phone] Comment: Discharge Diagnosis: 1:Chest pain; 2:Acute pulmonary embolism; 3:Sinus tachycardia; 4:COPD without exacerbation; 5:Hypertension; 6:Diabetes mellitus; 7:Depression; 8:Chronic hypoxemic respiratory failure; 9:Obese; 10:Smoker; 11:On deep vein thrombosis (DVT) prophylaxis Condition at Discharge: Improved MOORESIS Connie has been given the following list of follow-up instructions, prescriptions, and patient education materials: PATIENT FOLLOW-UP INFORMATION Diet: Low Sodium- 2000 mg Discharge Activity: Ambulate as tolerated, Activity as tolerated Discharge Restrictions: Wound Care Instructions: Remove Your Dressing In Days Call Your Doctor For: IF UNABLE TO CONTACT YOUR PHYSICIAN AND YOU FEEL IT IS AN EMERGENCY, GO TO THE NEAREST EMERGENCY ROOM OR CALL 911 Home Treatment: Devices/Equipment: Oxygen Special Services: Additional Instructions: AVOID NSAIDS Primary Care Physician to provide the following pending test results: None Follow up: With: Address: When: LINK HAMEED [address] [place], [place] [phone] Business (1) Within 1 week Comments: A voice message is left with this office with your information so they can call you for a follow up appiontment. Please call them if you do not hear from them in a few days. Thank you. With: Address: When: Ezekiel Villarashad [facility], [address] [place], [place] [address], [place] [address] 06/28/2023 11:00 AM In the event that this physician does not participate in your insurance network, please consult with your insurance company to find a nearby participating provider. Type Location Start Finish State ONC Office Visit [facility] 45 (FT) FT.ONCOLOGY 06/28/2023 11:00 AM 06/28/2023 11:45 AM Confirmed Comment: ROSEANNA Peralta PAMELA J, have received the attached patient education materials/instruction s and have verbalized understanding: Patient Signature Date Clinican/Nurse Signature Date HERE ARE THE MEDICATION CHANGES THAT OCCURRED DURING YOUR HOSPITAL STAY New Medications Printed Prescriptions apixaban (Eliquis 5 mg oral tablet) 2 tab(s) Oral BID x 6 days then 1 tab oral BID x 30 days. Refills: 0. Last Dose: ____Next Dose: ____ Medications to Continue with No Changes Other Medications albuterol (Ventolin HFA 90 mcg/inh Aerosol-Adpt) 1 Puffs Inhalation 4 times a day as needed for wheezing. Last Dose: ____Next Dose: ____ albuterol-ipratropium (albuterol-ipratropiu m Inh Debby 3 mL UD) 3 Milliliter Inhalation 4 times a day. Last Dose: ____Next Dose: ____ aspirin (Aspirin Low Dose 81 mg oral enteric coated tablet) Last Dose: ____Next Dose: ____ busPIRone (busPIRone 15 mg Tab) 1 Tablets By Mouth 3 times a day. Last Dose: ____Next Dose: ____ duloxetine (duloxetine 60 mg oral delayed release capsule) Last Dose: ____Next Dose: ____ fluticasone (Flovent HFA 110 Aerosol) 2 Puffs Inhalation 2 times a day. Last Dose: ____Next Dose: ____ fluticasone nasal (fluticasone Nasal 0.05 mg/inh [place]) 2 Sprays Nasal Inhalation every day. each nostril. Last Dose: ____Next Dose: ____ formoterol-glycopyrro late (Bevespi Aerosphere 9 mcg-4.8 mcg/inh inhalation aerosol) 2 Puffs Inhalation 2 times a day. Last Dose: ____Next Dose: ____ furosemide (furosemide 20 mg Tab) 1 Tablets By Mouth every day. Last Dose: ____Next Dose: ____ gabapentin (gabapentin 300 mg Cap) 1 Capsules By Mouth 2 times a day. Last Dose: ____Next Dose: ____ hydrochlorothiazide-l isinopril (hydrochlorothiazide- lisinopril 25 mg-20 mg Tab) 1 Tablets By Mouth every day. Last Dose: ____Next Dose: ____ lamotrigine (lamotrigine 25 mg Tab) 1 Tablets By Mouth 2 times a day. Last Dose: ____Next Dose: ____ Misc Prescription (ATORVASTATIN CALCIUM 40 MG TABLET) 0. Last Dose: ____Next Dose: ____ multivitamin (Daily Harvinder oral tablet) 1 Tablets By Mouth every day. Last Dose: ____Next Dose: ____ pioglitazone (pioglitazone 15 mg Tab) 1 Tablets By Mouth every day. Last Dose: ____Next Dose: ____ potassi (more content not included)... [facility] Insurance Correspondenceon 0 06-17-2023 Insurance Correspondence [id number]#1 .00CD:127 [facility] Interdisciplinary Note - Rodney e Manageron 06-17-2023 Interdisciplinary Note - Manager Switch Pt will dc home today pending ECHO and Eliquis pricing. Pt's will transport. Pt has POC here to go home on O2. CRM to follow. Eliquis $0. Pt aware. [facility] Comment on above: Result Comment: Elec tronically Signed By: Downs, Marcia R\.br\Date and Time Signed: 06/17/23 09:44 EDT Monitor Recordon 06-17-2023 Monitor Record [id number]# 1.00CD:127 Normal [facility] Monitor Record [id number]# 1.00CD:127 Normal [facility] Monitor Record [id number]# 1.00CD:127 Normal [facility] Monitor Record [id number]# 1.00CD:127 Normal [facility] Patient Education - Texton 0 06-17-2023 Patient Education - Text [facility] Progress Note-Nurseon 2022 Progress Note-Nurse This RN cannot complete the Medication Reconciliation as to the fact that the Patient cannot recall the medications she is taking at home. The list will be available in the morning once the patients will be here in the hospital on 06/17/2023. Dr. Drummond was informed about this matter. On going care provided. Normal [facility] Troponin 6 Hr.on 06-17-2023 Troponin I.cardiac [Mass/Vol] 5.50 pg/mL Low 10.10-27.10 [facility] Comment on above: Result Comment: The 95% CI (Confidence Interval) PPV (Positive Predictive Value) for myocardial infarction in females is 38 pg/mL, in males 51 pg/mL. The results should be used in conjunction with clinical conditions of myocardial infarction. (Access High Sensitivity Troponin I Instructions For Use, Claude Raulito, May 2018) Performed By: #### 2 [id number] #### [facility] Laboratory [address] [place] [address] Troponin 9 Hr.on 06-17-2023 Troponin I.cardiac [Mass/Vol] 5.20 pg/mL Low 10.10-27.10 [facility] Comment on above: Result Comment: The 95% CI (Confidence Interval) PPV (Positive Predictive Value) for myocardial infarction in females is 38 pg/mL, in males 51 pg/mL. The results should be used in conjunction with clinical conditions of myocardial infarction. (Access High Sensitivity Troponin I Instructions For Use, Claude Houston, May 2018) Performed By: #### 1 [id number] ####[facility] [id number] [place] [address] US LE Venous Duplex Bilatera danni 06-17-2023 US LE Venous Duplex Bilateral Exam Date/Time: 06/16/2023 19:59 EDT Reason for Exam: Acute pulmonary embolism;Elevated D-Dimer Report IMPRESSION: NO DVT OF EITHER LOWER EXTREMITY IDENTIFIED. EXAM: US LE Venous Duplex Bilateral DATE: 06/16/2023 CLINICAL HISTORY: Elevated D-Dimer, Acute pulmonary embolism. COMPARISON: Chest CTA 06/16/2023. TECHNIQUE: Galvan scale, compression, color and waveform Doppler analysis of the deep and superficial venous systems of both lower extremities was performed with augmentation. Spectral Doppler waveforms were evaluated for spontaneity, phasicity and appropriate augmentation. FINDINGS: The study is limited by the patient's body habitus. There is no venous thrombus, abnormal masses, organized fluid collections, or other findings of concern identified within either lower extremity. Ordering Provider: Alex BARRIENTOS FINAL REPORT Dictated: 06/17/2023 9:33 am Surendra Naranjo MD Signed (Electronic Signature): 06/17/2023 9:33 am Signed by: Surendra Naranjo MD Transcribed by: NOHEMY Technologist: ALISSA Barkley [facility] XR Chest Single Viewon 06-17 XR Chest Single View Exam Date/Time: 06/16/2023 17:01 EDT Reason for Exam: Chest pain Report IMPRESSION: NO ACUTE CARDIOPULMONARY DISEASE. CLINICAL HISTORY: Chest pain COMPARISON: NONE. FINDINGS: Osseous structures intact. Cardiopericardial silhouette normal. Lungs clear. Ordering Provider: Leandro Jo FINAL REPORT Dictated: 06/17/2023 8:06 am Wilberto Ellsworth MD Signed (Electronic Signature): 06/17/2023 8:06 am Signed by: Wilberto Ellsworth MD Transcribed by: NOHEMY Technologist: MIGNON Technical Comments Radiation Dose: Ka,r in mGy = na DAP = na Normal [facility] Auto DiffOrdered By: SYSTEM SYSTEM on 06-16-2023 Basophils/100 WBC (Bld) 0.3 % Normal 0.0-2.0 [facility] HemeAutoSS Comment on above: Order Comment: Order Added by Discern Expert. Performed By: #### 2 794338, 3685386, 94067463, 71929559, 8444977, 1398712, 70470980, 34804670 #### [facility] [address] [place] [address] Basophils/Leukocytes Auto (Bld) [Pure # fraction] 0.0 E9/L Normal 0.0-0.2 [facility] HemeAutoSS Comment on above: Order Comment: Order Added by Discern Expert. Performed By: #### 2 751066, 7511210, 94284356, 54964713, 9647207, 4269373, 33489451, 60336828 #### [facility] [address] [place] [address]3599 Eosinophils/100 WBC (Bld) 0.9 % Normal 0.0-8.0 [facility] HemeAutoSS Comment on above: Order Comment: Order Added by Discern Expert. Performed By: #### 2 450551, 7920919, 83299783, 06683767, 0087209, 4304590, 73210576, 46380187 #### [facility] [address] [place] [address] Eosinophils/Leukocytes Auto (Bld) [Pure # fraction] 0.1 E9/L Normal 0.0-0.5 [facility] HemeAutoSS Comment on above: Order Comment: Order Added by Discern Expert. Performed By: #### 2 542315, 2813973, 50855220, 87739840, 8157732, 1207674, 42423450, 34727064 #### [facility] [address] [place] [address] 46864 Lymphocytes/100 WBC (Bld) 14.3 % Normal 14.0-50.0 [facility] HemeAutoSS Comment on above: Order Comment: Order Added by Discern Expert. Performed By: #### 2 738409, 5684831, 40683578, 64115712, 6470501, 2661137, 65857982, 04652815 #### [facility] [address] [place] [address] Lymphocytes/Leukocytes Auto (Bld) [Pure # fraction] 1.2 E9/L Normal 1.0-4.0 [facility] HemeAutoSS Comment on above: Order Comment: Order Added by Discern Expert. Performed By: #### 2 348448, 1007555, 02885099, 41911512, 4213387, 2845311, 06678063, 37884676 #### [facility] [address] [place] [address]38 Monocytes/100 WBC (Bld) 8.8 % Normal 4.0-14.0 [facility] HemeAutoSS Comment on above: Order Comment: Order Added by Discern Expert. Performed By: #### 2 103239, 9770256, 67183593, 13930422, 0996234, 3548577, 74127842, 24350656 #### [facility] [address] [place] [address] Monocytes/Leukocytes Auto (Bld) [Pure # fraction] 0.7 E9/L Normal 0.2-1.0 [facility] HemeAutoSS Comment on above: Order Comment: Order Added by Discern Expert. Performed By: #### 2 375570, 2667116, 94569745, 85051207, 3122180, 5587238, 85985812, 55896762 #### [facility] [address] [place] [address]8571 Neutrophils/100 WBC (Bld) 75.7 % High 36.0-75.0 [facility] HemeAutoSS Comment on above: Order Comment: Order Added by Discern Expert. Performed By: #### 2 500539, 5610650, 12219791, 01108281, 1146607, 0531477, 69026710, 96973376 #### [facility] [address] [place] [address] Neutrophils/Leukocytes Auto (Bld) [Pure # fraction] 6.4 E9/L Normal 2.0-7.5 [facility] HemeAutoSS Comment on above: Order Comment: Order Added by Discern Expert. Performed By: #### 2 805416, 5183123, 98264964, 22505089, 8323732, 3103862, 69359175, 65897802 #### [facility] [address] [place] [address] BMPOrdered By: SYSTEM SYSTEM on 06-16-2023 Creatinine [Mass/Vol] 0.8 mg/dL Normal 0.5-1.3 [facility] C Remisol Comment on above: Performed By: #### 2 432157, 6035491, 29276195, 73002648, 8941930, 9850879, 45949704, 08993336 #### [facility] [address] [place] [address] Urea nitrogen [Mass/Vol] 16 mg/dL Normal 5-21 [facility] Remisol Comment on above: Performed By: #### 2 279358, 7635696, 88308287, 95025708, 3266052, 2187294, 96630203, 35055753 #### [facility] [address] [place] [address] Anion gap [Moles/Vol] 12 mmol/L Normal 6-16 [facility] C Remisol Comment on above: Performed By: #### 2 544832, 6929598, 85455871, 42442941, 9239965, 8185811, 71060015, 34353885 #### [facility] [address] [place] [address] Calcium [Mass/Vol] 9.9 mg/dL Normal 8.9-11.1 [facility] R emisol Comment on above: Performed By: #### 2 493822, 1478683, 29793556, 84690235, 3816523, 5641469, 79191277, 51009069 #### [facility] [address] [place] [address] Chloride [Moles/Vol] 101 mmol/L Normal 101-111 [facility] Remisol Comment on above: Performed By: #### 2 718696, 1846114, 20535162, 47594992, 7011405, 2449125, 31120094, 34211125 #### [facility] [address] [place] [address] CO2 [Moles/Vol] 27 mmol/L Normal 21-31 [facility] Wes debby Comment on above: Performed By: #### 2 185472, 0277913, 90175964, 29098919, 9003431, 9272654, 71629354, 83392249 #### [facility] [address] [place] [address] Glucose [Mass/Vol] 129 mg/dL Normal 55-199 [facility] R emisol Comment on above: Result Comment: If t his glucose result represents a fasting glucose, interpretation should refer to the following reference range: 55-99 mg/dL Performed By: #### 2 080774, 5034355, 11458597, 19305436, 3201106, 6422934, 21608986, 82153688 #### [facility] [address] [place] [address] Potassium [Moles/Vol] 3.9 mmol/L Normal 3.5-5.3 [facility] C Remisol Comment on above: Performed By: #### 2 481536, 5662325, 35428800, 01051509, 2544741, 6218189, 01850290, 53697484 #### [facility] [address] [place] [address] Sodium [Moles/Vol] 136 mmol/L Normal 135-145 [facility] R emisol Comment on above: Performed By: #### 2 090718, 1273123, 24368638, 74781525, 8123274, 0428371, 30480511, 88470827 #### [facility] [address] [place] [address] BMPon 06-16-2023 Urea nitrogen/Creatinine [Mass ratio] 20 No Units Normal 10-20 [facility] Comment on above: Performed By: #### 2 634180, 9509287, 99908340, 37476372, 5774072, 8551940, 09403845, 26370481 #### [facility] [address] [place] [address] CBC w/ Auto DiffOrdered By: Yanet Davis on 06-16-2023 Erythrocyte distribution width (RBC) [Ratio] 14.8 % High 10.9-14.2 [facility] HemeAutoSS Comment on above: Performed By: #### 2 113380, 0525542, 63299771, 13130016, 2487683, 6801280, 73781691, 75591678 #### [facility] [address] [place] [address] Hematocrit (Bld) [Volume fraction] 40.0 % Normal 34.0-46.0 [facility] HemeAutoSS Comment on above: Performed By: #### 2 762144, 9274904, 42370480, 92690262, 0266586, 5079076, 12364480, 31874592 #### [facility] [address] [place] [address] Hemoglobin (Bld) [Mass/Vol] 13.5 g/dL Normal 12.0-16.0 [facility] HemeAutoSS Comment on above: Performed By: #### 2 180077, 2903593, 84434209, 85186298, 5944829, 1927081, 78797204, 38333108 #### [facility] [address] [place] [address] MCH (RBC) [Entitic mass] 29.6 pg Normal 27.0-34.0 [facility] HemeAutoSS Comment on above: Performed By: #### 2 818867, 1139391, 22503104, 40424738, 1151948, 9193799, 78871176, 17804959 #### [facility] [address] [place] [address] MCHC (RBC) [Mass/Vol] 33.8 g/dL Normal 31.4-36.0 [facility] HemeAutoSS Comment on above: Performed By: #### 2 410200, 2812868, 83279565, 84560830, 5725629, 4175591, 71785499, 25996067 #### [facility] [address] [place] [address]14 MCV (RBC) [Entitic vol] 87.6 fL Normal 80.0-100.0 [facility] HemeAutoSS Comment on above: Performed By: #### 2 222363, 5188104, 40465564, 65619224, 6705296, 4005685, 66371701, 54534479 #### [facility] [address] [place] [address] Platelet mean volume (Bld) [Entitic vol] 10.5 fL Normal 6.4-10.8 [facility] HemeAutoSS Comment on above: Performed By: #### 2 104327, 1839331, 69041922, 41211086, 9704578, 8179035, 74118864, 93426090 #### [facility] [address] [place] [address] Platelets (Bld) [#/Vol] 172.0 E9/L Normal 150.0-500.0 [facility] HemeAutoSS Comment on above: Performed By: #### 2 369432, 6369398, 93111648, 10722102, 1120257, 0721687, 99337615, 98066274 #### [facility] [address] [place] [address]47 RBC (Bld) [#/Vol] 4.6 E12/L Normal 4.3-5.9 [facility] HemeAutoSS Comment on above: Performed By: #### 2 696423, 3026480, 56171090, 37238122, 4418846, 2625759, 28537610, 87863064 #### [facility] [address] [place] [address] WBC corrected for nucl RBC Auto (Bld) [#/Vol] 8.4 E9/L Normal 4.0-11.0 [facility] HemeAutoSS Comment on above: Performed By: #### 2 670778, 0194291, 64013582, 65893085, 5676877, 5105333, 79486714, 61164691 #### [facility] [address] [place] [address] CHEMISTRYOrdered By: SYSTEM SYSTEM on 06-16-2023 Troponin I.cardiac [Mass/Vol] 5.50 pg/mL Low 10.10 - 27.10 pg/mL [facility] Remisol Troponin I.cardiac [Mass/Vol] 5.30 pg/mL Low 10.10 - 27.10 pg/mL [facility] Remisol Urea nitrogen/Creatinine [Mass ratio] 20 mg/mg Normal 10 - 20 [facility] Remisol COAGULATIONOrdered By: David Chadwick on 06-16-2023 aPTT Coag (PPP) [Time] 31.8 s Normal 25.1 - 36.5 second(s) [facility] Auto Coag Fibrin D-dimer FEU (PPP) [Mass/Vol] 532 ng/mL FEU Invalid Interpretation Code 215 - 500 ng/mL FEU [facility] Auto Coag Comment on above: Result Comment: Resu lts Called To XOCHITL RAMIREZ By DAVID CHADWICK And Read Back For Confirmation On 06/16/2023 16:59:58 EDT Results Verified By Repeat Analysis PT Coag (PPP) [Time] 11.4 s Normal 9.4 - 1 2.5 second(s) [facility] Auto Coag CTA Cheston 06-16-2023 CTA Chest Exam Date/Time: 06/16/2023 17:45 EDT Reason for Exam: Pulmonary embolism (PE) suspected, low to intermediate prob, positive D-dimer;Other (please specify) Report IMPRESSION: POSITIVE FOR PULMONARY EMBOLI WITHIN SUBSEGMENTAL BRANCHES SUPPLYING THE RIGHT LOWER LOBE. EVIDENCE OF CORONARY ARTERY DISEASE. INDETERMINATE 1.2 CM RIGHT ADRENAL NODULE AND 1 CM LEFT ADRENAL NODULE. EXAM: CTA Chest History: Chest pain. Technique: Multiple axial images were obtained of the thorax from the thoracic inlet through the upper abdomen With IV contrast. Multiplanar reformats were obtained including coronal maximum intensity projection images (MIPS). Comparison: Portable chest radiograph performed earlier on the same date Findings: Visualized portion of the thyroid gland is within normal limits. No axillary, mediastinal, or hilar lymphadenopathy. No thoracic aortic aneurysm or dissection. Filling defects are identified within subsegmental branches finding the right middle lobe. Heart size is within normal limits. No significant pericardial effusion. Coronary artery calcifications are identified. Esophagus is within normal limits. No pulmonary nodule or mass. No consolidation, pleural effusion, or pneumothorax. Airways are patent. No bronchiectasis. Visualized upper abdomen demonstrates no acute abnormality. 1.2 cm indeterminate right adrenal nodule and 1 cm indeterminate left adrenal nodule. No acute osseous abnormality. All CT scans at this facility use dose modulation, iterative reconstruction, and/or weight based dosing when appropriate to reduce radiation dose to as low as reasonably achievable. Report Ordering Provider: Leandro Jo FINAL REPORT Dictated: 06/16/2023 6:14 pm Vincenzo Colvin DO Signed (Electronic Signature): 06/16/2023 6:14 pm Signed by: Vincenzo Colvin DO Transcribed by: NOHEMY Technologist: [place] Technical Comments GFR (mL/min/1/73m2) n/a-age Contrast: Isovue 370 Contrast amount in ml's: 89 Normal [facility] Consent for Treatmenton 05-31 Consent for Treatment [id number] .[id number]:127 Normal [facility] D-Dimeron 06-16-2023 Fibrin D-dimer FEU (PPP) [Mass/Vol] 532 [id number] Abnormal 215-500 [facility] Comment on above: Result Comment: Resu lts Called To XOCHITL RAMIREZ By DAVID CHADWICK And Read Back For Confirmation On 06/16/2023 16:59:58 EDT Results Verified By Repeat Analysis This assay is intended for use as an aid in the diagnosis of DVT or PE. These conditions cannot be excluded with certainty solely on the basis of a D-dimer concentration being within the reference range This D-Dimer assay may be used in conjunction with a non-high clinical pretest probability assessment to exclude deep-vein thrombosis(DVT). For exclusion of venous thrombosis or pulmonary embolism the analyte D-Dimer should not be used as an aid in patients with: Therapeutic dose anticoagulant therapy for >24 hours Fibrinolytic therapy within previous 7 days Trauma or surgery within previous 4 weeks Disseminated malignacies Aortic aneurysm Sepsis, severe infections, pneumonia, severe skin infections Liver cirrhosis Performed By: #### 2 351933, 1409502, 58203588, 95805893, 6856090, 9190502, 39105239, 02130863 #### [facility] [address] [place] [address] ED Clinical Summaryon 2022 ED Clinical Summary [address] [address] ED Clinical Summary Person Information Name: SIS MOORE [facility] Age: 57 Years : 1965 Sex: Female Language: Citizen Of [place] PCP: LINK HAMEED CNP Marital Status: Visit Id: Visit Reason: Chest pain; MID STERNUM PAIN Speciality: Acuity: 2 Enc Type: Emergency Med Service: Emergency Arrival: 06/16/2023 15:45:03 Discharge: LOS: 000 06:14 Checkin: 06/16/2023 15:45:03 Checkout: 06/16/2023 21:59:01 Dispo Type: Admitted as IP to this [facility] EVENTS: Event Name Event Status Request Date/Time Start Date/Time Complete Date/Time Arrive Complete 06/16/2023 15:45:03 06/16/2023 15:45:03 06/16/2023 15:45:03 Document Home Meds Request 06/16/2023 15:45:03 Triage Complete 06/16/2023 15:45:03 06/16/2023 15:58:21 06/16/2023 15:58:21 Bed Assign Complete 06/16/2023 15:50:31 06/16/2023 15:50:31 06/16/2023 15:50:31 Dr Exam Complete 06/16/2023 15:50:31 06/16/2023 15:52:09 06/16/2023 15:52:09 RN Exam Complete 06/16/2023 15:50:31 06/16/2023 16:10:50 06/16/2023 16:10:50 EKG Complete 06/16/2023 15:51:27 06/16/2023 15:55:32 Registration Complete 06/16/2023 15:52:09 06/16/2023 16:19:15 06/16/2023 16:19:15 Dr Exam Complete 06/16/2023 16:06:27 06/16/2023 16:06:27 06/16/2023 16:06:27 Pending Labs Request 06/16/2023 16:15:57 Lab Complete 06/16/2023 16:15:57 06/16/2023 16:51:42 Meds Admin Complete 06/16/2023 16:15:57 06/16/2023 16:42:34 Patient Care Request 06/16/2023 16:15:57 RT Request 06/16/2023 16:15:57 X-Ray Complete 06/16/2023 16:15:57 06/16/2023 16:40:54 06/16/2023 17:01:57 Reg Complete Request 06/16/2023 16:19:15 Reg Bed Request Complete 06/16/2023 16:19:15 06/16/2023 16:19:15 06/16/2023 16:19:15 Pending Labs Complete 06/16/2023 16:20:50 06/16/2023 17:00:05 Lab Complete 06/16/2023 16:20:50 06/16/2023 17:00:05 Pending Labs Complete 06/16/2023 16:31:11 06/16/2023 16:31:11 06/16/2023 16:51:43 Lab Complete 06/16/2023 16:31:11 06/16/2023 16:31:11 06/16/2023 16:51:43 Pending Labs Complete 06/16/2023 16:39:04 06/16/2023 16:39:04 06/16/2023 16:39:10 Lab Complete 06/16/2023 16:39:04 06/16/2023 16:39:04 06/16/2023 16:39:10 Pending Labs Complete 06/16/2023 16:51:04 06/16/2023 16:51:04 06/16/2023 16:51:04 Wet Read Request 06/16/2023 17:01:57 CT Complete 06/16/2023 17:12:02 06/16/2023 17:12:53 06/16/2023 17:45:01 Meds Admin Cancel 06/16/2023 18:56:05 06/16/2023 19:05:42 Pending Labs Cancel 06/16/2023 18:56:05 06/16/2023 19:05:42 Lab Cancel 06/16/2023 18:56:05 06/16/2023 19:05:42 Meds Admin Request 06/16/2023 18:59:49 Patient Care Request 06/16/2023 18:59:49 Pending Labs Request 06/16/2023 18:59:49 Patient Care Request 06/16/2023 19:04:05 Meds Admin Request 06/16/2023 19:04:05 Echo Request 06/16/2023 19:04:05 US Complete 06/16/2023 19:04:05 06/16/2023 19:14:03 06/16/2023 19:59:56 Bed Request Request 06/16/2023 21:04:33 Reg Bed Request Request 06/16/2023 21:04:33 Admit Request 06/16/2023 21:04:33 ADDRESS: [address] [place] [id number] PHYS DOC NOTES: MEDICAL INFORMATION: Prescriptions Given: PATIENT EDUCATION INFORMATION: Instructions: Follow up: DIAGNOSIS: 1:Chest pain; 2:Acute pulmonary embolism; 3:Sinus tachycardia; 4:COPD without exacerbation; 5:Hypertension; 6:Diabetes mellitus; 7:Depression; 8:Chronic hypoxemic respiratory failure; 9:Obese; 10:Smoker; 11:On deep vein thrombosis (DVT) prophylaxis Normal [facility] ED Note-Nursingon 06-16-2023 ED Note-Nursing Per JUAN Reeves, patient okay to take at home Xanax medications. Pt took 1/2 of a .25mg tab. Normal [facility] ED Note-Physicianon 06-16-20 ED Note-Physician Basic Information Time Seen: Leandro Jo PA-C 06/16/2023 15:52 Chief Complaint CP started this afternoon while sitting down. states mid sternal CP 10/10. wears 3L O2 all the time. History of Present Illness 57-year-old female presents to ED with complaint of chest pains. Patient reports this afternoon about 3 hours before presentation to ED she began to have a heavy substernal chest pain. Patient also endorses shortness of breath. Patient does have shortness of breath at baseline, is on 3 L O2. Patient endorses some nausea, denies vomiting. On presentation to ED, patient states the pain has let up somewhat. Patient denies any past history of similar symptoms. Patient does have a history of hypertension hyperlipidemia COPD. Patient denies any cardiac history. Patient does endorse multiple cardiac caths in the past which have been negative. Patient denies any stenting. Patient denies any catheterization stress test echo within the last 2 to 3 years. Patient denies any history of pulmonary embolism. Patient is not on any blood thinners. Review of Systems Full 10 system ROS performed. Pt denies symptoms except as noted above in the HPI. Physical Exam Vitals & Measurements T: 36.7 ?C(Oral) HR: 92(Monitored) RR: 22 BP: 138/77 SpO2: 96% HT: 175 cm WT: 115 kg BMI: 37.55 VITALS: I have reviewed the triage vital signs. GENERAL: Well developed, anxious, nondiaphoretic NEURO: Alert and oriented. Moves all extremities. Face is symmetric and expressive. EYES: PERRL. No scleral icterus or conjunctival injection. No discharge. HENT: Normocephalic, atraumatic. Hearing is grossly intact. Nares grossly patent and without discharge. Mucous membranes moist. NECK: No JVD. Patient moves neck without restriction. CARDIO: Rhythm regular. Normal rate. No murmur, rub, or gallop. Pulses equal bilaterally in the upper and lower extremity. No lower extremity edema. PULM: Lungs clear to auscultation in all castro. No wheezes, rales, or rhonchi. No conversational dyspnea. No splinting, stridor, or accessory muscle use. Oxygenating well on baseline 3 L. GI/: Abdomen is soft and non-tender. Normoactive bowel sounds. EXTREMITIES: Symmetric muscle bulk. No joint swelling. No clubbing, cyanosis, or deformity. SKIN: Warm and dry. Normal turgor. No rash or lesions appreciated. PSYCH: Mood, affect, and interaction is appropriate to the setting. Medical Decision Making MEDICAL DECISION MAKING Number and Complexity of Problems Differential Diagnosis: [] [facility] Data External documents reviewed: [] My EKG interpretation: ST depression, minimal My CT interpretation: Right lower lobe subsegmental pulmonary emboli My X-ray interpretation: [] My Ultrasound interpretation: [] Decision rules/scores evaluated: Patient with a heart score of 4 indicating appropriateness of admission Heart Score for Major Cardiac Event History: Example factors for history - pattern of chest pain, onset, duration, relation with exercise, stress or cold, localization, concominant symptoms. reaction to sublingual nitrates, [] Highly suspicious +2 [] Moderately suspicious +1 [x] Slightly suspicious 0 EKG: [] Significant ST-Depression +2 [x] Non specific repolarization disturbance +1 [] Normal 0 Age: [] >= 65 +2 [x] 45-65 + 1 [] <45 0 Risk Factors: (HLD, HTN, DM, Cigarette Smoking, Pos Family Hx, Obesity) [x] >3 risk factors or hx of atheroslerotic disease + 2 [] 1-2 risk factors + 1 [] No risk factors known 0 Troponin: [] >= 3X normal + 2 [] 1-3X normal + 1 [x] <= Normal 0 Discussed with: [] Treatment and Disposition ED Course: Patient presents ED with complaint of chest pain shortness of breath. Patient without elevated troponin, EKG with nonspecific abnormalities. D-dimer patient was positive, did order a CTA chest which showed subsegmental pulmonary emboli. Due to patient chronic pulmonary disease on O2, appropriate for admission. Discussed patient with hospitalist who agreed admit patient. Patient admitted to medicine. Shared decision making: [] Code status: [] Assessment/Plan 1. Chest pain (R07.9: Chest pain, unspecified) 2. Acute pulmonary embolism, (I26.99: Other pulmonary embolism without acute cor pulmonale)Pulmonary emboli 3. On deep vein thrombosis (DVT) prophylaxis (Z79.899: Other halfway (current) drug therapy) 4. COPD without exacerbation (J44.9: Chronic obstructive pulmonary disease, unspecified) Orders: aspirin, 162 mg = 2 tab(s), Tab-Chew, Oral, Once, Stop date 06/16/23 16:15:00 EDT, STAT, Start date 06/16/23 16:15:00 EDT, 06/16/23 16:15:00 EDT Automated Diff Basic Metabolic Panel CBC w/ Auto Diff CTA Chest D-Dimer ED Cardiac Monitoring eGFR Extra SST Tube Oxygen Saturation Oxygen Therapy PT & PTT Saline Lock Insert Troponin 0 Hr. Troponin 3 Hr. Troponin 6 Hr. Troponin 9 Hr. XR Chest Single View Medications Administered Given aspirin 81 mg Chew Tab, 162 (more content not included)... Normal [facility] Comment on above: Result Comment: Elec tronically Signed By: Leandro Jo PA-C\.br\Date and Time Signed: 06/16/23 18:46 EDT\.br\Electronically Co-Signed By: Ramses Hair DO\.br\Date and Time Co-Signed: 06/16/23 19:30 EDT ED Patient Education Noteon 06-16-2023 ED Patient Education Note Normal [facility] ED Patient Summaryon 023 ED Patient Summary [place] [id number] Patient Discharge Instructions Person Information Name: SIS MOORE Age: 57 Years Arrival Date: 06/16/2023 15:45:03 Discharge Diagnosis: 1:Chest pain; 2:Acute pulmonary embolism; 3:Sinus tachycardia; 4:COPD without exacerbation; 5:Hypertension; 6:Diabetes mellitus; 7:Depression; 8:Chronic hypoxemic respiratory failure; 9:Obese; 10:Smoker; 11:On deep vein thrombosis (DVT) prophylaxis Primary Care Physician: LINK HAMEED CNP Provider Information Primary Provider: Ramses Hair DO Advanced Data Capture Clerk:Leandro Jo PA-C The exam and treatment you received in the Emergency Department were for an urgent problem and are not intended as complete care. It is important that you follow up with a doctor, nurse practitioner, or physician?s zoning assistant for ongoing care. If your symptoms become worse or you do not improve as expected and you are unable to reach your usual health care provider, you should return to the Emergency Department. We are available 24 hours a day. SIS MOORE has been given the following list of patient education materials, prescriptions and follow-up instructions: Follow-up Instructions: In the event that this physician does not participate in your insurance network, please consult with your insurance company to find a nearby participating provider. Patient Education Materials: A MESSAGE TO ALL PATIENTS REGARDING OPIOIDS PRESCRIPTION OPIOIDS: WHAT YOU NEED TO KNOW Prescription opioids can be used to help relieve vnissyci-kb-lxsphm pain and are often prescribed following a surgery or injury, or for certain health conditions. These medications can be an important part of the treatment but also come with serious risks. It is important to work with your healthcare provider to make sure you are getting the safest, most effective care. WHAT ARE THE RISKS AND SIDE EFFECTS OF OPIOID USE? Prescription opioids carry serious risks of addiction and overdose, especially with prolonged use. An opioid overdose, often marked by slowed breathing, can cause sudden . The use of prescription opioids can have a number of side effects as well, even when taken as directed: ? Tolerance?meaning you might need to take more of the medication for the same pain relief ? Physical dependence?meaning you have symptoms of withdrawal when a medication is stopped ? Increased sensitivity to pain ? Constipation ? Nausea, vomiting, and dry mouth ? Sleepiness and dizziness ? Confusion ? Depression ? Low levels of testosterone that can result in lower sex drive, energy, and strength ? Itching and sweating RISKS ARE GREATER WITH: ? History of drug misuse, substance use disorder, or overdose ? Mental health conditions (such as depression or anxiety) ? Sleep apnea ? Older age (65 years and older) ? Avoid alcohol while taking prescription opioids. Also, unless specifically advised by your health care provider, medications to avoid include: ? Benzodiazepines (such as Xanax or Valium) ? Muscle relaxants (such as Soma or Flexeril) ? Hypnotics (such as Ambien or Lunesta) ? Other prescription opioids KNOW YOUR OPTIONS Talk to your health care provider about ways to manage your pain that don?t involve prescription opioids. Some of these options may actually work better and have fewer risks and side effects. Options may include: ? Pain relievers such as acetaminophen, ibuprofen, and naproxen ? Some medication that are also used for depression or seizures ? Physical therapy and exercise ? Cognitive behavioral therapy, a psychological, goal-directed approach, in which patients learn how to modify physical, behavioral, and emotional triggers of pain and stress. IF YOU ARE PRESCRIBED OPIOIDS FOR PAIN: ? Never take opioids in greater amounts or more often than prescribed. ? Follow up with your primary health care provider. o Work together to create a plan on how to manage your pain. o Talk about ways to help manage your pain that don?t involve prescription opioids. o Talk about any and all concerns and side effects. ? Help prevent misuse and abuse o Never sell or share prescription opioids. o Never use another person?s prescription opioids. ? Store prescription opioids in a secure place and out of reach of others (this may include visitors, children, friends, and family). ? Safely dispose of unused prescription opioids: Find your community drug take-back program or your pharmacy mail-back program, or flush them down the toilet, following guidance from the Food and Drug Administration (www.fda.gov/Drugs/Re sourcesForYou). ? Visit www.cdc.gov/drugoverd ose to learn about the risks of opioids abuse and overdose. ? If you believe you may be struggling with addiction, tell your health care management specialist and ask for guid (more content not included)... Normal [facility] Monitor Recordon 06-16-2023 Monitor Record [id number]# [id number]:127 Normal [facility] PT & PTTon 06-16-2023 aPTT Coag (PPP) [Time] 31.8 second(s) Normal 25.1-36.5 [facility] Comment on above: Result Comment: Para meter 15 days - 4 weeks 1 - 5 months 6 - 11 months 1 - 5 years 6 - 10 years 11 - 17 years PTT Mean: 35.4 (27.6-45.6) Mean: 33.5 (24.8-40.7) Mean: 32.4 (25.1-40.7) Mean: 31.6 (24.0-39.2) Mean: 31.6 (26.9-38.7) Mean: 31.0 (24.6-38.4) Pediatric Reference ranges were obtained from a study by Bird Macias et al. prepared from 1437 samples obtained at 7 different centers using the same coagulation reagent and instrumentation as [facility]. Currently there are no coagulation studies available worldwide for children to 14 days, and no normal ranges. Heparin therapeutic range (represented by Anti-Factor Xa activity of 0.2 - 0.4 U/mL) corresponds to PTT of 56.6 - 109.0 sec. Performed By: #### 2 [id number], [id number], [id number], [id number], [id number], 8292631, [id number], [id number] #### [facility] Laboratory [address] [place] [address] PT Coag (PPP) [Time] 11.4 second(s) Normal 9.4-12.5 [facility] Comment on above: Result Comment: 15 d ays - 4 weeks 1 - 5 months 6 -11 months 1- 5 years 6-10 years 11 -17 years Mean: 11.2 (9.5-12.6) Mean: 11.0 (9.7-12.8) Mean: 11.0 (9.8-13.0) Mean: 11.3 (9.9-13.4) Mean: 11.7 (10.0-14.6) Mean: 11.8 (10.0 - 14.1) Pediatric Reference ranges were obtained from a study by Bird Macias et al. prepared from 1437 samples obtained at 7 different centers using the same coagulation reagent and instrumentation as [facility]. Currently there are no coagulation studies available worldwide for children to 14 days, and no normal ranges. Performed By: #### 2 [id number], [id number], [id number], [id number], 1744120, 5088460, [id number], [id number] #### [facility] [address] [place] [address] PT & PTTOrdered By: David sher on 06-16-2023 INR Coag (PPP) [Relative time] 1.0 {INR} Invalid Interpretation Code [facility] Auto Coag Comment on above: Result Comment: INR results are specifically intended to assess patients stabilized on long-term Anticoagulation therapy suggested INR?s ?Less Intensive Anticoagulation? 2.0 ? 3.0 Conventional Range 3.0 ? 4.5 Performed By: #### 2 [id number], 2003514, [id number], [id number], 9853602, 8686802, [id number], [id number] #### [facility] [address] [place] [address] Troponin 0 Hr.on 06-16-2023 Troponin I.cardiac [Mass/Vol] 4.60 pg/mL Low 10.10-27.10 [facility] Comment on above: Result Comment: The 95% CI (Confidence Interval) PPV (Positive Predictive Value) for myocardial infarction in females is 38 pg/mL, in males 51 pg/mL. The results should be used in conjunction with clinical conditions of myocardial infarction. (Access High Sensitivity Troponin I Instructions For Use, [employer], May 2018) Performed By: #### 2 532140, [id number], [id number], [id number], 2441263, 8583724, 08871120, [id number] #### [facility] [address] [place] [address] Troponin 3 Hr.on 06-16-2023 Troponin I.cardiac [Mass/Vol] 5.30 pg/mL Low 10.10-27.10 [facility] Comment on above: Result Comment: The 95% CI (Confidence Interval) PPV (Positive Predictive Value) for myocardial infarction in females is 38 pg/mL, in males 51 pg/mL. The results should be used in conjunction with clinical conditions of myocardial infarction. (Access High Sensitivity Troponin I Instructions For Use, [employer], May 2018) Performed By: #### 2 [id number], [id number], [id number], [id number], 7641604, 3775802, [id number], [id number] #### [facility] [address] [place] [address] eGFROrdered By: SYSTEM PocitsE Merkle on 06-16-2023 GFR/1.73 sq M.predicted among non-blacks MDRD (S/P/Bld) [Vol rate/Area] 85 mL/min/1.73 m2 Normal >=59 [facility] Chem S Comment on above: Order Comment: Order added by Discern Expert. Result Comment: Agricultural Economics Teacher nita kidney disease could be indicated at eGFR's of less than 60 mL/min/1.73m2. Kidney failure is indicated at less than 15 mL/min/1.73m2. Performed By: #### 2 [id number], 8594565, [id number], 10980901, 6899782, 0213169, [id number], [id number] #### [facility] [address] [place] [address] 36on 06-09-2023 36 Patient will need a follow up appointment for further refills Normal [facility] BNPon 02-23-2023 Natriuretic peptide B (Bld) [Mass/Vol] 114.0 pg/mL Normal <=900.0 [facility] Comment on above: Performed By: #### C MP, BNP, HSTROPN #### [facility] [address] [place] [address] Dr. Xiomy Lennon CBC AUTO DIFFon 02-23-2023 BASO # 0.0 103/ul Normal 0.0-0.1 [facility] Comment on above: Performed By: #### P T, PTT #### [facility] [address] [place] [address] Dr. Xiomy Lennon Basophils/100 WBC (Bld) 0.2 % Normal 0.2-2.0 [facility] Comment on above: Performed By: #### P T, PTT #### [facility] [address] [place] [address] Dr. Xiomy Lennon EO # 0.2 103/ul Normal 0.0-0.7 [facility] Comment on above: Performed By: #### P T, PTT #### [facility] [address] [place] [address] Dr. Xiomy Lennon Eosinophils/100 WBC (Bld) 1.8 % Normal 0.9-7.0 [facility] Comment on above: Performed By: #### P T, PTT #### [facility] [address] [place] [address] Dr. Xiomy Lennon Erythrocyte distribution width (RBC) [Ratio] 15.4 % Critically high 11.0-15.0 [facility] Comment on above: Performed By: #### P T, PTT #### [facility] [address] [place] [address] Dr. Xiomy Lennon Hematocrit (Bld) [Volume fraction] 37.6 % Normal 36.0-48.0 [facility] Comment on above: Performed By: #### P T, PTT #### [facility] [address] [place] [address] Dr. Xiomy Lennon Hemoglobin (Bld) [Mass/Vol] 12.2 g/dL Normal 12.0-16.0 [facility] Comment on above: Performed By: #### P T, PTT #### [facility] [address] [place] [address] Dr. Xiomy Lennon IG # 0.02 10e3/ul Normal 0.00-0.03 [facility] Comment on above: Performed By: #### P T, PTT #### [facility] [address] [place] [address] Dr. Xiomy Lennon IG % 0.2 % Normal 0.0-0.5 [facility] Comment on above: Performed By: #### P T, PTT #### [facility] [address] [place] [address] Dr. Xiomy Lennon LYMPH # 1.7 103/ul Normal 1.2-3.8 [facility] Comment on above: Performed By: #### P T, PTT #### [facility] [address] [place] [address] Dr. Xiomy Lennon Lymphocytes/100 WBC (Bld) 17.0 % Critically low 20.5-60.0 [facility] Comment on above: Performed By: #### P T, PTT #### [facility] [address] [place] [address] Dr. Xiomy Lennon MANUAL DIFF REQ NO Normal [facility] Comment on above: Performed By: #### P T, PTT #### [facility] [address] [place] [address] Dr. Xiomy Lennon MCH (RBC) [Entitic mass] 28.6 pg Normal 26.7-34.0 [facility] Comment on above: Performed By: #### P T, PTT #### [facility] [address] [place] [address] Dr. Xiomy Lennon MCHC (RBC) [Mass/Vol] 32.4 g/dL Normal 29.9-35.[address] [facility] Comment on above: Performed By: #### P T, PTT #### [facility] [address] [place] [address] Dr. Xiomy Lennon MCV (RBC) [Entitic vol] 88.3 fL Normal 81.0-99.[address] [facility] Comment on above: Performed By: #### P T, PTT #### [facility] [address] [place] [address] Dr. Xiomy Lennon MONO # 0.7 103/ul Normal 0.3-0.[address] [facility] Comment on above: Performed By: #### P T, PTT #### [facility] [address] [place] [address] Dr. Xiomy Lennon Monocytes/100 WBC (Bld) 7.3 % Normal 1.7-12.[address] [facility] Comment on above: Performed By: #### P T, PTT #### [facility] [address] [place] [address] Dr. Xiomy Lennon NEUT # 7.2 103/ul Critically high 1.4-6.5 [facility] Comment on above: Performed By: #### P T, PTT #### [facility] [address] [place] [address] Dr. Xiomy Lennon Neutrophils/100 WBC (Bld) 73.5 % Normal 43.0-75.[address] [facility] Comment on above: Performed By: #### P T, PTT #### [facility] [address] [place] [address] Dr. Xiomy Lennon Platelet mean volume (Bld) [Entitic vol] 11.5 fL Normal 9.5-13.[address] [facility] Comment on above: Performed By: #### P T, PTT #### [facility] [address] [place] [address] Dr. Xiomy Lennon PLT 197 103/ul Normal 150-[address] [facility] Comment on above: Performed By: #### P T, PTT #### [facility] [address] [place] [address] Dr. Xiomy Lennon RBC 4.26 106/ul Normal 4.20-5.40 [facility] Comment on above: Performed By: #### P T, PTT #### [facility] [address] [place] [address] Dr. Xiomy Lennon WBC 9.7 103/ul Normal 4.0-11.0 [facility] Comment on above: Performed By: #### P T, PTT #### [facility] [address] [place] [address] Dr. Xiomy Lennon LACTATE/LACTIC ACIDon 2022 Lactate [Moles/Vol] 0.7 mmol/L Normal 0.4-2.0 [facility] Comment on above: Performed By: #### P T, PTT #### [facility] [address] [place] [address] Dr. Xiomy Lennon PROF 14(COMP METB)on 023 Albumin [Mass/Vol] 3.3 g/dL Critically low 3.4-5.0 [facility] Comment on above: Performed By: #### C MP, BNP, HSTROPN #### [facility] [address] [place] [address] Dr. Xiomy Lennon Albumin/Globulin [Mass ratio] 0.7 {ratio} Normal [facility] Comment on above: Performed By: #### C MP, BNP, HSTROPN #### [facility] [address] [place] [address] Dr. Xiomy Lennon ALP [Catalytic activity/Vol] 89 U/L Normal 46-116 [facility] Comment on above: Performed By: #### C MP, BNP, HSTROPN #### [facility] [address] [place] [address] Dr. Xiomy Lennon ALT [Catalytic activity/Vol] 34 U/L Normal 14-59 [facility] Comment on above: Performed By: #### C MP, BNP, HSTROPN #### [facility] [address] [place] [address] Dr. Xiomy Lennon Anion gap [Moles/Vol] 10.5 mmol/L Normal Th e [facility] Comment on above: Performed By: #### C MP, BNP, HSTROPN #### [facility] [address] [place] [address] Dr. Xiomy Lennon AST [Catalytic activity/Vol] 22 U/L Normal 15-37 [facility] Comment on above: Performed By: #### C MP, BNP, HSTROPN #### [facility] [address] [place] [address] Dr. Xiomy Lennon Bilirubin [Mass/Vol] 0.3 mg/dL Normal 0.2-1.0 [facility] Comment on above: Performed By: #### C MP, BNP, HSTROPN #### [facility] [address] [place] [address] Dr. Xiomy Lennon Calcium [Mass/Vol] 9.4 mg/dL Normal 8.5-10.1 [facility] Comment on above: Performed By: #### C MP, BNP, HSTROPN #### [facility] [address] [place] [address] Dr. Xiomy Lennon Chloride [Moles/Vol] 99 mmol/L Normal 98-[address] [facility] Comment on above: Performed By: #### C MP, BNP, HSTROPN #### [facility] [address] [place] [address] Dr. Xiomy Lennon CO2 [Moles/Vol] 31.6 mmol/L Normal 21.0-32.0 [facility] Comment on above: Performed By: #### C MP, BNP, HSTROPN #### [facility] [address] [place] [address] Dr. Xiomy Lennon Creatinine [Mass/Vol] 0.86 mg/dL Normal 0.55-1.02 [facility] Comment on above: Performed By: #### C MP, BNP, HSTROPN #### [facility] [address] [place] [address] Dr. Xiomy Lennon EGFR-AF MOLDOVAN >60 Normal >=60 [facility] Comment on above: Performed By: #### C MP, BNP, HSTROPN #### [facility] [address] [place] [address] Dr. Xiomy Lennon EGFR-NON AF MOLDOVAN >60 Normal >=60 [facility] Comment on above: Performed By: #### C MP, BNP, HSTROPN #### [facility] [address] [place] [address] Dr. Xiomy Lennon Globulin (S) [Mass/Vol] 4.6 g/dL Normal [facility] Comment on above: Performed By: #### C MP, BNP, HSTROPN #### [facility] [address] [place] [address] Dr. Xiomy Lennon Glucose [Mass/Vol] 133 mg/dL Critically high 74-106 [facility] Comment on above: Performed By: #### C MP, BNP, HSTROPN #### [facility] [address] [place] [address] Dr. Xiomy Lennon Potassium [Moles/Vol] 4.1 mmol/L Normal 3.5-5.1 [facility] Comment on above: Performed By: #### C MP, BNP, HSTROPN #### [facility] [address] [place] [address] Dr. Xiomy Lennon Protein [Mass/Vol] 7.9 g/dL Normal 6.4-8.2 [facility] Comment on above: Performed By: #### C MP, BNP, HSTROPN #### [facility] [address] [place] [address] Dr. Xiomy Lennon Sodium [Moles/Vol] 137 mmol/L Normal 136-145 [facility] Comment on above: Performed By: #### C MP, BNP, HSTROPN #### [facility] [address] [place] [address] Dr. Xiomy Lennon Urea nitrogen [Mass/Vol] 16.0 mg/dL Normal 7.0-18.0 [facility] Comment on above: Performed By: #### C MP, BNP, HSTROPN #### [facility] [address] [place] [address] Dr. Xiomy Lennon Urea nitrogen/Creatinine [Mass ratio] 18.6 mg/mg Normal [facility] Comment on above: Performed By: #### C MP, BNP, HSTROPN #### [facility] [address] [place] [address] Dr. Xiomy Lennon PROTIMEon 02-23-2023 INR Coag (PPP) [Relative time] 0.95 {INR} Normal [facility] Comment on above: Performed By: #### P TT, PT #### [facility] [address] [place] [address] Dr. Xiomy Lennon INR GUIDELINES SEE BELOW Normal [facility] Comment on above: Result Comment: NIALL RED INR: 2.0 - 3.0 CONDITIONS NOT LISTED BELOW 2.5 - 3.5 FOR PROSTHETIC HEART VALVE REPLACEMENT 2.5 - 3.5 RECURRENT THROMBOSIS Performed By: #### P TT, PT #### [facility] [address] [place] [address] Dr. Xiomy Lennon PT Coag (PPP) [Time] 10.1 s Normal 9.0-11.6 [facility] Comment on above: Performed By: #### P TT, PT #### [facility] [address] [place] [address] Dr. Xiomy Lennon PTTon 02-23-2023 aPTT Coag (Bld) [Time] 27.2 s Normal 22.3-36.2 [facility] Comment on above: Performed By: #### P TT, PT #### [facility] [address] [place] [address] Dr. Xiomy Lennon TROPONIN, HIGH SENSITIVITYon 02-23-2023 HSTROP 6.2 pg/mL Normal 4.0-51.3 [facility] Comment on above: Result Comment: CUT- OFF POINTS HAVE BEEN ESTABLISHED BASED ON THE FOURTH UNIVERSAL DEFINITIONS OF MYOCARDIAL INFARCTION. THE UPPER REFERENCE LIMIT (URL) OF TROPONIN, DEFINED THE 99TH PERCENTILE OF cTnI DISTRIBUTION IN A REFERENCE POPULATION, HAS BEEN CONFIRMED THE DECISION THRESHOLD FOR TX DIAGNOSIS. Performed By: #### C MP, BNP, HSTROPN #### [facility] [address] [place] [address] Dr. Xiomy Lennon XR CHEST 1 Von 02-23-2023 XR CHEST 1 V EXAM: XR CHEST 1 V HISTORY: SHORTNESS OF BREATH COMPARISON: 01/02/[address] of the chest from 01/12/2023 TECHNIQUE: Chest X-ray AP, 1 view FINDINGS: Support devices: None. Lungs/pleura: No consolidation, effusion, or pneumothorax. Heart and mediastinum: Normal contours. Bones: No acute abnormality identified. Impression: No radiographic evidence of acute cardiopulmonary process. Electronically authenticated by: JUSTINE MARES Date: 2023-02-23 19:05 Normal [facility] HEMOGLOBINon 02-01-2023 Hemoglobin (Bld) [Mass/Vol] 13.0 g/dL Normal 12.0-16.0 [facility] Comment on above: Performed By: #### H GB #### [facility] [address] [address] [address] Xiomy Lennon PULMONARY FUNCTION TESTon PULMONARY FUNCTION TEST PULMONARY FUNCTION TEST NOTE DATE: 02/01/2023 SIX MINUTE WALK STUDY INDICATIONS: COPD. Six minute walk study was initiated according to the standard protocol. Patient was 93% on room air at rest, Tre Score 2, blood pressure 130/75. Patient ambulated on room air and desaturated to 87%. She was placed on 1 liter, then dropped to 87% within 1 minute 22 seconds. Third attempt on 2 liters, she dropped to 88% at 2 minutes and 5 seconds into the walk. A fourth six minute walk study was initiated and she completed the full six minutes on 3 liters a minute. Ending heart rate was 90. Saturation was 92% on the 3 liters with blood pressure 135/80 and a Tre Score of 2. During this last walk, she ambulated 152.4 meters, which was 35% walk distance. IMPRESSIONS: Ambulatory desaturations requiring 3 liters a minute of oxygen to achieve saturations greater than 88%. Diminished walk distance of 35% predicted. RECOMMENDATIONS: 1. No oxygen required at rest. 2. Three liters a minute with ambulation/activity. 3. Clinical correlation required. Normal [facility] CT LUNG CANCER SCREENINGon 0 01-12-2023 CT LUNG CANCER SCREENING EXAMINATION: CT LUNG CANCER SCREENING HISTORY: Nicotine dependence COMPARISON: No relevant comparison available. TECHNIQUE: Axial, Coronal, and Sagittal images were created without the administration of IV contrast material. Dose reduction techniques were achieved by using automated exposure control and/or adjustment of mA and/or kV according to patient size and/or use of iterative reconstruction technique. FINDINGS: LUNGS: No visible pulmonary disease. PLEURA: No mass, effusion, or pneumothorax. VASCULATURE: No abnormality. CYNDI: No mass or pathologic adenopathy. MEDIASTINUM: No mass or pathologic adenopathy. CARDIAC: No enlargement, pericardial thickening, or significant calcification. AORTA: No aneurysm or dissection. CHEST WALL: No mass or axillary adenopathy BONES: No bone lesion or fracture. LIMITED ABDOMEN: No suspicious findings. Limited images of the upper abdomen. OTHER: Negative. IMPRESSION: 1. Lung-RADS Category 1 Negative. No nodules and definitely benign nodules. Continue annual screening with LDCT in 12 months. Electronically authenticated by: MIGUEL MEDEROS Date: 2023-01-12 14:10 Normal [facility] GLYCOHEMOGLOBIN A1Con 2022 ADA RECOMMENDATION SEE BELOW Normal [facility] Comment on above: Result Comment: ADA RECOMMENDED LIMIT 4.0 - 6.0 ADA THERAPEUTIC TARGET < 7.0 ACTION SUGGESTED > 7.0 Performed By: #### A 1C #### [facility] [address] [address] [address] Xiomy Lennon Glucose [Mass/Vol] 111 mg/dL Normal [facility] Comment on above: Performed By: #### A 1C #### [facility] [address] [address] [address] Xiomy Lennon HbA1c (Bld) [Mass fraction] 5.5 % Normal 4.5-6.2 [facility] Comment on above: Performed By: #### A 1C #### [facility] [address] [address] [address] Xiomy Lennon PROF CHEM 8 (BAS METB)on Anion gap [Moles/Vol] 12.0 mmol/L Normal [facility] Comment on above: Performed By: #### P T, PTT #### [facility] [address] [address] [address] Xiomy Lennon Calcium [Mass/Vol] 10.0 mg/dL Normal 8.5-10.1 [facility] Comment on above: Performed By: #### P T, PTT #### [facility] [address] [address] [address] Xiomy Lennon Chloride [Moles/Vol] 102 mmol/L Normal 98-[address] [facility] Comment on above: Performed By: #### P T, PTT #### [facility] [address] [address] [address] Xiomy Lennon CO2 [Moles/Vol] 30.4 mmol/L Normal 21.0-32.0 [facility] Comment on above: Performed By: #### P T, PTT #### [facility] [address] [place] [address] Dr. Xiomy Lennon Creatinine [Mass/Vol] 0.79 mg/dL Normal 0.55-1.02 [facility] Comment on above: Performed By: #### P T, PTT #### [facility] [address] [address] [address] Xiomy Lennon EGFR-AF MOLDOVAN >60 Normal >=60 [facility] Comment on above: Performed By: #### P T, PTT #### [facility] [address] [place] [address] Dr. Xiomy Lennon EGFR-NON AF MOLDOVAN >60 Normal >=60 [facility] Comment on above: Performed By: #### P T, PTT #### [facility] [address] [address] [address] Xiomy Lennon Glucose [Mass/Vol] 147 mg/dL Critically high 74-106 [facility] Comment on above: Performed By: #### P T, PTT #### [facility] [address] [address] [address] Xiomy Lennon Potassium [Moles/Vol] 4.4 mmol/L Normal 3.5-5.1 [facility] Comment on above: Performed By: #### P T, PTT #### [facility] [address] [address] [address] Xiomy Lennon Sodium [Moles/Vol] 140 mmol/L Normal 136-145 [facility] Comment on above: Performed By: #### P T, PTT #### [facility] [address] [address] [address] Xiomy Lennon Urea nitrogen [Mass/Vol] 18.0 mg/dL Normal 7.0-18.0 [facility] Comment on above: Performed By: #### P T, PTT #### [facility] [address] [address] [address] Xiomy Lennon Urea nitrogen/Creatinine [Mass ratio] 22.8 mg/mg Normal [facility] Comment on above: Performed By: #### P T, PTT #### [facility] [address] [address] [address] Xiomy Lennon Office Visiton 12-24-2022 Follow-up visit [id number] Sis Moore 1965 F Date Provider Department Center 12/24/2022 [facility] Family History Problem Relation Age of Onset Coronary artery disease Other Pulmonary embolism Other Deep vein thrombosis Other Family Status - Relation Status Age at Other Level of Service:60006 ID OFFICE/OUTPATIENT ESTABLISHED MOD MDM 30-39 MIN Reason for Visit and Comments: Hypertension [150779] Shortness of Breath [355314] Normal [facility] THEOPHYLLINEon 11-04-2022 THEOPHYLLINE 2.1 ug/mL Critically low 10.0-20.0 [facility] Comment on above: Performed By: #### T HERBERT #### [facility] [address] [place] [address] Dr. Xiomy Lennon GLYCOHEMOGLOBIN A1Con 2021 ADA RECOMMENDATION SEE BELOW Normal [facility] Comment on above: Result Comment: ADA RECOMMENDED LIMIT 4.0 - 6.0 ADA THERAPEUTIC TARGET < 7.0 ACTION SUGGESTED > 7.0 Performed By: #### P T, PTT #### [facility] [address] [address] [address] Xiomy Lennon Glucose [Mass/Vol] 120 mg/dL Normal [facility] Comment on above: Performed By: #### P T, PTT #### [facility] [address] [address] [address] Xiomy Lennon HbA1c (Bld) [Mass fraction] 5.8 % Normal 4.5-6.2 [facility] Comment on above: Performed By: #### P T, PTT #### [facility] [address] [address] [address] Xiomy Lennon LIPID PROFILEon 07-28-2022 CHOL-HDL RATIO NORM SEE BELOW Normal [facility] Comment on above: Result Comment: 3.3 - 4.4 LOW RISK 4.4 - 7.1 AVERAGE RISK 7.1 - 11.0 MODERATE RISK >11.0 HIGH RISK Performed By: #### P T, PTT #### [facility] [address] [address] [address] Xiomy Lennon Cholesterol [Mass/Vol] 135 mg/dL Normal <=200 [facility] Comment on above: Performed By: #### P T, PTT #### [facility] [address] [address] [address] Xiomy Lennon Cholesterol in HDL [Mass/Vol] 77 mg/dL Critically high 40-60 [facility] Comment on above: Performed By: #### P T, PTT #### [facility] [address] [address] [address] Xiomy Lennon Cholesterol in LDL [Mass/Vol] 44.6 mg/dL Normal [facility] Comment on above: Performed By: #### P T, PTT #### [facility] [address] [address] [address] Xiomy Lennon Cholesterol.total/Chol esterol in HDL [Mass ratio] 1.8 {ratio} Normal [facility] Comment on above: Performed By: #### P T, PTT #### [facility] [address] [address] [address] Xiomy Lennon HDL NORMAL > or = 60 mg/dl - LO W CARDIOVASCULAR RISK <40 mg/dl - HIGH CARDIOVASCULAR RISK Normal [facility] Comment on above: Performed By: #### P T, PTT #### [facility] [address] [address] [address] Xiomy Lennon LDL CALC NORMAL SEE BELOW Normal [facility] Comment on above: Result Comment: <100 mg/dl OPTIMAL 100 - 129 mg/dl NEAR OR ABOVE OPTIMAL 130 - 159 mg/dl BORDERLINE HIGH 160 - 189 mg/dl HIGH >190 mg/dl VERY HIGH Performed By: #### P T, PTT #### [facility] [address] [place] [address] Dr. Xiomy Lennon Triglyceride [Mass/Vol] 67 mg/dL Normal <=150 [facility] Comment on above: Performed By: #### P T, PTT #### [facility] [address] [address] [address] Xiomy Lennon VLDL CALC 13.4 mg/dL Normal [facility] Comment on above: Performed By: #### P T, PTT #### [facility] [address] [place] [address] Dr. Xiomy Lennon PROF CHEM 8 (BAS METB)on Anion gap [Moles/Vol] 8.9 mmol/L Normal [facility] Comment on above: Performed By: #### P T, PTT #### [facility] [address] [place] [address] Dr. Xiomy Lennon Calcium [Mass/Vol] 9.7 mg/dL Normal 8.5-10.1 [facility] Comment on above: Performed By: #### P T, PTT #### [facility] [address] [place] [address] Dr. Xiomy Lennon Chloride [Moles/Vol] 99 mmol/L Normal 98-[address] [facility] Comment on above: Performed By: #### P T, PTT #### [facility] [address] [place] [address] Dr. Xiomy Lennon CO2 [Moles/Vol] 32.0 mmol/L Normal 21.0-32.0 [facility] Comment on above: Performed By: #### P T, PTT #### [facility] [address] [place] [address] Dr. Xiomy Lennon Creatinine [Mass/Vol] 0.78 mg/dL Normal 0.55-1.02 [facility] Comment on above: Performed By: #### P T, PTT #### [facility] [address] [address] [address] Xiomy Lennon EGFR-AF MOLDOVAN >60 Normal >=60 [facility] Comment on above: Performed By: #### P T, PTT #### [facility] [address] [address] [address] Xiomy Lennon EGFR-NON AF MOLDOVAN >60 Normal >=60 [facility] Comment on above: Performed By: #### P T, PTT #### [facility] [address] [address] [address] Xiomy Lennon Glucose [Mass/Vol] 111 mg/dL Critically high 74-106 [facility] Comment on above: Performed By: #### P T, PTT #### [facility] [address] [address] [address] Xiomy Lennon Potassium [Moles/Vol] 3.9 mmol/L Normal 3.5-5.1 [facility] Comment on above: Performed By: #### P T, PTT #### [facility] [address] [address] [address] Xiomy Lennon Sodium [Moles/Vol] 136 mmol/L Normal 136-145 [facility] Comment on above: Performed By: #### P T, PTT #### [facility] [address] [address] [address] Xiomy Lennon Urea nitrogen [Mass/Vol] 10.0 mg/dL Normal 7.0-18.0 [facility] Comment on above: Performed By: #### P T, PTT #### [facility] [address] [address] [address] Xiomy Lennon Urea nitrogen/Creatinine [Mass ratio] 12.8 mg/mg Normal [facility] Comment on above: Performed By: #### P T, PTT #### [facility] [address] [place] [address] Dr. Xiomy Lennon MG MAMM SCREEN 3D EMY CADon 04-30-2022 MG MAMM SCREEN 3D EMY CAD Patient: SIS MOORELakia Exam Date: 04/30/2022 : 1965 Gender:F Ordering : ENRIQUE HAMEED [employer] Admission #: [id number] Family : Order #: [id number] CLICK HERE TO VIEW EXAM RADIOLOGY REPORT PROCEDURE: MAMMOGRAM SCREENING 3D BILATERAL CAD COMPARISON: MG MAMM SCREEN EMY W CAD, 04/28/2020. MG MAMM SCREEN 3D EMY CAD, 04/29/2021. INDICATIONS: Screening mammography Calculator Name NCI Breast Cancer Risk Assessment Tool 5 Year Breast Cancer Risk 0.80% Lifetime Breast Cancer Risk 5.20% Personal Breast Cancer No Personal Ovarian Cancer No Treatments None Family Cancers None LOCATION: [facility] BREAST COMPOSITION: Almost entirely fatty. FINDINGS: DIAGNOSTIC CATEGORY 1--NEGATIVE. NO CHANGE FROM COMPARISON ASSESSMENT. Scattered benign-appearing calcifications are present. Scattered benign-appearing lymph nodes are present. RIGHT BREAST: No significant suspicious finding. LEFT BREAST: No significant suspicious finding. RECOMMENDATIONS: ROUTINE MAMMOGRAM AND CLINICAL EVALUATION IN 12 MONTHS. PLEASE NOTE: A NORMAL MAMMOGRAM DOES NOT EXCLUDE THE POSSIBILITY OF BREAST CANCER. A CLINICALLY SUSPICIOUS PALPABLE LUMP SHOULD BE BIOPSIED. Dictated by: Leana Ayoub MD on 04/30/2022 at 09:55 Approved by: Leana Ayoub MD on 04/30/2022 at 10:06 Normal [facility] CBC AUTO DIFFon 03-26-2022 BASO # 0.0 103/ul Normal 0.0-0.1 [facility] Comment on above: Performed By: #### P T, PTT #### [facility] [address] [place] [address] Dr. Xiomy Lennon Basophils/100 WBC (Bld) 0.2 % Normal 0.2-2.[address] [facility] Comment on above: Performed By: #### P T, PTT #### [facility] [address] [address] [address] Xiomy Lennon EO # 0.2 103/ul Normal 0.0-0.[address] [facility] Comment on above: Performed By: #### P T, PTT #### [facility] [address] [place] [address] Dr. Xiomy Lennon Eosinophils/100 WBC (Bld) 1.7 % Normal 0.9-7.0 [facility] Comment on above: Performed By: #### P T, PTT #### [facility] [address] [place] [address] Dr. Xiomy Lennon Erythrocyte distribution width (RBC) [Ratio] 15.6 % Critically high 11.0-15.0 [facility] Comment on above: Performed By: #### P T, PTT #### [facility] [address] [place] [address] Dr. Xiomy Lennon Hematocrit (Bld) [Volume fraction] 43.4 % Normal 36.0-48.0 [facility] Comment on above: Performed By: #### P T, PTT #### [facility] [address] [place] [address] Dr. Xiomy Lennon Hemoglobin (Bld) [Mass/Vol] 14.0 g/dL Normal 12.0-16.0 [facility] Comment on above: Performed By: #### P T, PTT #### [facility] [address] [place] [address] Dr. Xiomy Lennon IG # 0.04 10e3/ul Critically high 0.00-0.03 [facility] Comment on above: Performed By: #### P T, PTT #### [facility] [address] [place] [address] Dr. Xiomy Lennon IG % 0.4 % Normal 0.0-0.5 [facility] Comment on above: Performed By: #### P T, PTT #### [facility] [address] [place] [address] Dr. Xiomy Lennon LYMPH # 1.2 103/ul Normal 1.2-3.8 [facility] Comment on above: Performed By: #### P T, PTT #### [facility] [address] [place] [address] Dr. Xiomy Lennon Lymphocytes/100 WBC (Bld) 11.4 % Critically low 20.5-60.0 [facility] Comment on above: Performed By: #### P T, PTT #### [facility] [address] [place] [address] Dr. Xiomy Lennon MANUAL DIFF REQ NO Normal [facility] Comment on above: Performed By: #### P T, PTT #### [facility] [address] [place] [address] Dr. Xiomy Lennon MCH (RBC) [Entitic mass] 29.7 pg Normal 26.7-34.0 [facility] Comment on above: Performed By: #### P T, PTT #### [facility] [address] [place] [address] Dr. Xiomy Lennon MCHC (RBC) [Mass/Vol] 32.3 g/dL Normal 29.9-35.2 [facility] Comment on above: Performed By: #### P T, PTT #### [facility] [address] [place] [address] Dr. Xiomy Lennon MCV (RBC) [Entitic vol] 92.1 fL Normal 81.0-99.0 [facility] Comment on above: Performed By: #### P T, PTT #### [facility] [address] [place] [address] Dr. Xiomy Lennon MONO # 0.8 103/ul Normal 0.3-0.8 [facility] Comment on above: Performed By: #### P T, PTT #### [facility] [address] [place] [address] Dr. Xiomy Lennon Monocytes/100 WBC (Bld) 7.9 % Normal 1.7-12.0 [facility] Comment on above: Performed By: #### P T, PTT #### [facility] [address] [place] [address] Dr. Xiomy Lennon NEUT # 8.3 103/ul Critically high 1.4-6.5 [facility] Comment on above: Performed By: #### P T, PTT #### [facility] [address] [place] [address] Dr. Xiomy Lennon Neutrophils/100 WBC (Bld) 78.4 % Critically high 43.0-75.0 [facility] Comment on above: Performed By: #### P T, PTT #### [facility] [address] [place] [address] Dr. Xiomy Lennon Platelet mean volume (Bld) [Entitic vol] 11.0 fL Normal 9.5-13.5 [facility] Comment on above: Performed By: #### P T, PTT #### [facility] [address] [place] [address] Dr. Xiomy Lennon PLT 196 103/ul Normal 150-450 [facility] Comment on above: Performed By: #### P T, PTT #### [facility] [address] [place] [address] Dr. Xiomy Lennon RBC 4.71 106/ul Normal 4.20-5.40 [facility] Comment on above: Performed By: #### P T, PTT #### [facility] [address] [place] [address] Dr. Xiomy Lennon WBC 10.6 103/ul Normal 4.0-11.0 [facility] Comment on above: Performed By: #### P T, PTT #### [facility] [address] [place] [address] Dr. Xiomy Lennon LIPASEon 03-26-2022 Lipase [Catalytic activity/Vol] 92.0 U/L Normal 73.0-393.0 [facility] Comment on above: Performed By: #### P T, PTT #### [facility] [address] [place] [address] Dr. Xiomy Lennon PROF 14(COMP METB)on 022 Albumin [Mass/Vol] 3.6 g/dL Normal 3.4-5.0 [facility] Comment on above: Performed By: #### P T, PTT #### [facility] [address] [place] [address] Dr. Xiomy Lennon Albumin/Globulin [Mass ratio] 0.7 {ratio} Normal [facility] Comment on above: Performed By: #### P T, PTT #### [facility] [address] [place] [address] Dr. Xiomy Lennon ALP [Catalytic activity/Vol] 78 U/L Normal 46-[address] [facility] Comment on above: Performed By: #### P T, PTT #### [facility] [address] [place] [address] Dr. Xiomy Lennon ALT [Catalytic activity/Vol] 25 U/L Normal 14-59 [facility] Comment on above: Performed By: #### P T, PTT #### [facility] [address] [address] [address] Xiomy Lennon Anion gap [Moles/Vol] 9.4 mmol/L Normal [facility] Comment on above: Performed By: #### P T, PTT #### [facility] [address] [address] [address] Xiomy Lennon AST [Catalytic activity/Vol] 19 U/L Normal 15-37 [facility] Comment on above: Performed By: #### P T, PTT #### [facility] [address] [place] [address] Dr. Xiomy Lennon Bilirubin [Mass/Vol] 0.3 mg/dL Normal 0.2-1.0 [facility] Comment on above: Performed By: #### P T, PTT #### [facility] [address] [place] [address] Dr. Xiomy Lennon Calcium [Mass/Vol] 9.9 mg/dL Normal 8.5-10.1 [facility] Comment on above: Performed By: #### P T, PTT #### [facility] [address] [place] [address] Dr. Xiomy Lennon Chloride [Moles/Vol] 96 mmol/L Critically low 98-107 [facility] Comment on above: Performed By: #### P T, PTT #### [facility] [address] [place] [address] Dr. Xiomy Lennon CO2 [Moles/Vol] 34.6 mmol/L Critically high 21.0-32.0 [facility] Comment on above: Performed By: #### P T, PTT #### [facility] [address] [place] [address] Dr. Xiomy Lennon Creatinine [Mass/Vol] 0.93 mg/dL Normal 0.55-1.02 [facility] Comment on above: Performed By: #### P T, PTT #### [facility] [address] [place] [address] Dr. Xiomy Lennon EGFR-AF MOLDOVAN >60 Normal >=60 [facility] Comment on above: Performed By: #### P T, PTT #### [facility] [address] [address] [address] Xiomy Lennon EGFR-NON AF MOLDOVAN >60 Normal >=60 [facility] Comment on above: Performed By: #### P T, PTT #### [facility] [address] [address] [address] Xiomy Lennon Globulin (S) [Mass/Vol] 5.0 g/dL Normal [facility] Comment on above: Performed By: #### P T, PTT #### [facility] [address] [address] [address] Xiomy Lennon Glucose [Mass/Vol] 139 mg/dL Critically high 74-106 [facility] Comment on above: Performed By: #### P T, PTT #### [facility] [address] [address] [address] Xiomy Lennon Potassium [Moles/Vol] 4.0 mmol/L Normal 3.5-5.1 [facility] Comment on above: Performed By: #### P T, PTT #### [facility] [address] [address] [address] Xiomy Lennon Protein [Mass/Vol] 8.6 g/dL Critically high 6.4-8.2 [facility] Comment on above: Performed By: #### P T, PTT #### [facility] [address] [address] [address] Xiomy Lennon Sodium [Moles/Vol] 136 mmol/L Normal 136-145 [facility] Comment on above: Performed By: #### P T, PTT #### [facility] [address] [address] [address] Xiomy Lennon Urea nitrogen [Mass/Vol] 19.0 mg/dL Critically high 7.0-18.0 [facility] Comment on above: Performed By: #### P T, PTT #### [facility] [address] [address] [address] Xiomy Lennon Urea nitrogen/Creatinine [Mass ratio] 20.4 mg/mg Normal [facility] Comment on above: Performed By: #### P T, PTT #### [facility] [address] [place] [address] Dr. Xiomy Lennon PROTIMEon 03-26-2022 INR Coag (PPP) [Relative time] 0.99 {INR} Normal [facility] Comment on above: Performed By: #### P T, PTT #### [facility] [address] [place] [address] Dr. Xiomy Lennon INR GUIDELINES SEE BELOW Normal [facility] Comment on above: Result Comment: NIALL RED INR: 2.0 - 3.0 CONDITIONS NOT LISTED BELOW 2.5 - 3.5 FOR PROSTHETIC HEART VALVE REPLACEMENT 2.5 - 3.5 RECURRENT THROMBOSIS Performed By: #### P T, PTT #### [facility] [address] [place] [address] Dr. Xiomy Lennon PT Coag (PPP) [Time] 10.7 s Normal 9.0-11.6 [facility] Comment on above: Performed By: #### P T, PTT #### [facility] [address] [place] [address] Dr. Xiomy Lennon PTTon 03-26-2022 aPTT Coag (Bld) [Time] 26.9 s Normal 22.3-36.2 [facility] Comment on above: Performed By: #### P T, PTT #### [facility] [address] [place] [address] Dr. Xiomy Lennon TROPONIN, HIGH SENSITIVITYon 03-26-2022 HSTROP 8.0 pg/mL Normal 4.0-51.3 [facility] Comment on above: Result Comment: CUT- OFF POINTS HAVE BEEN ESTABLISHED BASED ON THE FOURTH UNIVERSAL DEFINITIONS OF MYOCARDIAL INFARCTION. THE UPPER REFERENCE LIMIT (URL) OF TROPONIN, DEFINED THE 99TH PERCENTILE OF cTnI DISTRIBUTION IN A REFERENCE POPULATION, HAS BEEN CONFIRMED THE DECISION THRESHOLD FOR TX DIAGNOSIS. Performed By: #### P T, PTT #### [facility] [address] [place] [address] Dr. Xiomy Lennon US SINGLE QUAD RT UPPERon US SINGLE QUAD RT UPPER ULTRASOUND RIGHT UPPER QUADRANT HISTORY: Right upper quadrant pain. COMPARISON: None. FINDINGS: The liver is diffusely echogenic which limits the sensitivity for intrahepatic masses. There is no intrahepatic biliary ductal dilatation. The gallbladder appears unremarkable with no evidence for gallbladder wall thickening or pericholecystic fluid. The common bile duct measures 4.8 mm. Negative Dwyer's sign. The visualized portions of the pancreas appear unremarkable. There is a right renal lower pole 42 x 41 x 45 mm simple cyst. The main portal vein is patent with hepatopedal flow. IMPRESSION: Echogenic liver consistent with hepatocellular disease such as fatty infiltration. Right renal cyst. Electronically authenticated by: KENDY HERRERA Date: 2022-03-26 19:58 Normal [facility] Basic Metabolic Panelon 07-01 Calcium [Mass/Vol] 9.3 mg/dL Normal 8.2-10.2 [facility] Comment on above: Performed By: #### C HOUSTON 19 [facility], COVID-19 VALDEMAR, SOFIANEG #### [facility] [address] [id number] [facility] Chloride [Moles/Vol] 89 mmol/L Low 95-114 [facility] Comment on above: Performed By: #### C HOUSTON 19 [facility] [place], COVID-19 VALDEMAR, SOFIANEG #### [facility] [address] [phone] [facility] CO2 [Moles/Vol] 35.4 mmol/L High 22.0-30.0 [facility] Comment on above: Performed By: #### C HOUSTON 19 [facility] [place], COVID-19 VALDEMAR, SOFIANEG #### [facility] [address] [place] [address] [place] Creatinine [Mass/Vol] 0.81 mg/dL Normal 0.44-1.03 [facility] Comment on above: Performed By: #### C HOU[place]ON 19 [facility] [place], COVID-19 VALDEMAR, SOFIANEG #### [facility] [address] [place] [address] [place] Creatinine Clr Calc Pharmacy 107.64 [facility] Comment on above: Performed By: #### C HOUSTON 19 [facility] [place], COVID-19 VALDEMAR, SOFIANEG #### [facility] [address] [place] [address] [place] Estimated GFR ( Hilary > 60 Normal [facility] Comment on above: Result Comment: GFR estimated reference range: According to KDOQI guidelines, <60 ml/min/1.73m2 is sufficient to diagnose a patient with chronic kidney disease. Performed By: #### C OVID 19 [facility] [place], COVID-19 VALDEMAR, SOFIANEG #### [facility] [address] [phone] [place] Estimated GFR (Non- Am > 60 Normal [facility] Comment on above: Performed By: #### C OVID 19 [facility] [place], COVID-19 VALDEMAR, SOFIANEG #### [facility] [address] Glucose [Mass/Vol] 94 mg/dL Normal 70-100 [facility] Comment on above: Result Comment: [place] Glucose Reference Range is dependent on time and content of last meal. Glucose of more than 200 mg/dL in a nonstressed, ambulatory subject supports the diagnosis of Diabetes Mellitus. ADA recommended reference range Performed By: #### C OVID 19 [facility] [place], COVID-19 VALDEMAR, SOFIANEG #### [facility] [address] Potassium Normal 3.5-5.1 [facility] Comment on above: Result Comment: Spec imen hemolyzed, redraw requested Performed By: #### C OVID 19 [facility] [place], COVID-19 VALDEMAR, SOFIANEG #### [facility] [address] [phone] [place] Sodium [Moles/Vol] 135 mmol/L Low 136-146 [facility] Comment on above: Performed By: #### C OVID 19 [facility] [place], COVID-19 VALDEMAR, SOFIANEG #### [facility] [address] [phone] [facility] Urea nitrogen [Mass/Vol] 19 mg/dL Normal 9-23 [facility] Comment on above: Performed By: #### C OVID 19 [facility] [place], COVID-19 VALDEMAR, SOFIANEG #### [facility] [address] Complete Blood Count Auto Di ffon 07-14-2021 Basophils (Bld) [#/Vol] 0.0 10*3/uL Normal 0.0-0.2 [facility] Comment on above: Result Comment: PERF ORMED BY: [place] [id number] PATHOLOGIST VULCANIZING MACHINE OPERATOR OTILIA BAIRD M.D. Performed By: #### C BC, LACTIC, HS TROP, BMP #### [address] Basophils/100 WBC (Bld) 0.5 % Normal . [facility] Comment on above: Performed By: #### C BC, LACTIC, HS TROP, BMP #### [address] Eosinophils (Bld) [#/Vol] 0.1 10*3/uL Normal 0.0-0.45 [facility] Comment on above: Performed By: #### C BC, LACTIC, HS TROP, BMP #### [address] Eosinophils/100 WBC (Bld) 0.9 % Normal . [facility] Comment on above: Performed By: #### C BC, LACTIC, HS TROP, BMP #### [address] Erythrocyte distribution width (RBC) [Ratio] 18.2 % High 11.9-15.3 [facility] Comment on above: Performed By: #### C BC, LACTIC, HS TROP, BMP #### [facility] [address] [place] [address] Hematocrit (Bld) [Volume fraction] 41.6 % Normal 34.0-46.4 [facility] Comment on above: Performed By: #### C BC, LACTIC, HS TROP, BMP #### [facility] [address] [place] [address] Hemoglobin (Bld) [Mass/Vol] 13.8 g/dL Normal 11.8-15.4 [facility] Comment on above: Performed By: #### C BC, LACTIC, HS TROP, BMP #### [address] Lymphocytes (Bld) [#/Vol] 1.5 10*3/uL Normal 1.00-4.8 [facility] Comment on above: Performed By: #### C BC, LACTIC, HS TROP, BMP #### [address] Lymphocytes/100 WBC (Bld) 20.5 % Normal . [facility] Comment on above: Performed By: #### C BC, LACTIC, HS TROP, BMP #### [address] MCH (RBC) [Entitic mass] 29.0 pg Normal 24.7-34.3 [facility] Comment on above: Performed By: #### C BC, LACTIC, HS TROP, BMP #### [address] MCV (RBC) [Entitic vol] 87.8 fL Normal 80-100 [facility] Comment on above: Performed By: #### C BC, LACTIC, HS TROP, BMP #### [address] Mean Corpuscular HGB Conc 33.0 g/dL Normal 32.0-35.0 [facility] Comment on above: Performed By: #### C BC, LACTIC, HS TROP, BMP #### [address] Monocytes (Bld) [#/Vol] 0.8 10*3/uL Normal 0.0-0.8 [facility] Comment on above: Performed By: #### C BC, LACTIC, HS TROP, BMP #### [address] Monocytes/100 WBC (Bld) 11.4 % Normal . [facility] Comment on above: Performed By: #### C BC, LACTIC, HS TROP, BMP #### [address] [place] [address] [place] Neutrophils (Bld) [#/Vol] 4.8 10*3/uL Normal 1.8-7.7 [facility] Comment on above: Performed By: #### C BC, LACTIC, HS TROP, BMP #### [facility] [address] Neutrophils/100 WBC (Bld) 66.7 % Normal . [facility] Comment on above: Performed By: #### C BC, LACTIC, HS TROP, BMP #### [place] [address] [place] Nucleated RBC/100 WBC (Bld) [Ratio] 0.1 % Normal 0-0.5 [facility] Comment on above: Performed By: #### C BC, LACTIC, HS TROP, BMP #### [address] Platelet mean volume (Bld) [Entitic vol] 9.5 fL Normal 6.3-10.7 [facility] Comment on above: Performed By: #### C BC, LACTIC, HS TROP, BMP #### [place] [address] [place] Platelets (Bld) [#/Vol] 153 10*3/uL Normal 150-450 [facility] Comment on above: Performed By: #### C BC, LACTIC, HS TROP, BMP #### [place] [address] [place] RBC (Bld) [#/Vol] 4.74 10*6/uL Normal 3.60-5.00 [facility] Comment on above: Performed By: #### C BC, LACTIC, HS TROP, BMP #### [place] [address] [place] WBC (Bld) [#/Vol] 7.1 10*3/uL Normal 4.5-11.0 [facility] Comment on above: Performed By: #### C BC, LACTIC, HS TROP, BMP #### [address] Glucose Poct Glucometerson 0 9-14-2021 Commemt1 Glu2: Cleaned Meter [facility] Comment on above: Result Comment: PERF ORMED BY: [facility] [address] [place] [address] PATHOLOGIST VULCANIZING MACHINE OPERATOR OTILIA BAIRD M.D. Performed By: #### C OVID 19 [facility], COVID-19 VALDEMAR, SOFIANEG #### [facility] [address] [phone] [place] Glucose [Mass/Vol] 130 mg/dL Normal [facility] Comment on above: Result Comment: [place] om Glucose Reference Range is dependent on time and content of last meal. Glucose of more than 200 mg/dL in a nonstressed, ambulatory subject supports the diagnosis of Diabetes Mellitus. Performed By: #### C OVID 19 [facility] [place], COVID-19 VALDEMAR, SOFIANEG #### [facility] [address] [place] [address] [facility] Commemt1 Glu2: Cleaned Meter Normal [facility] Comment on above: Result Comment: PERF ORMED BY: [facility] [address] [place] [address] PATHOLOGIST VULCANIZING MACHINE OPERATOR OTILIA BAIRD M.D. Performed By: #### C BC, LACTIC, HS TROP, BMP #### [address] [address] [place] Glucose [Mass/Vol] 102 mg/dL Normal [facility] Comment on above: Result Comment: [place] om Glucose Reference Range is dependent on time and content of last meal. Glucose of more than 200 mg/dL in a nonstressed, ambulatory subject supports the diagnosis of Diabetes Mellitus. Performed By: #### C BC, LACTIC, HS TROP, BMP #### [facility] [address] [place] [address] [place] Commemt1 Glu2: Cleaned Meter Normal [facility] Comment on above: Result Comment: PERF ORMED BY: [facility] [address] [place] [address] PATHOLOGIST VULCANIZING MACHINE OPERATOR OTILIA BAIRD M.D. Performed By: #### C BC, LACTIC, HS TROP, BMP #### [address] Glucose [Mass/Vol] 130 mg/dL Normal [facility] Comment on above: Result Comment: [facility] Glucose Reference Range is dependent on time and content of last meal. Glucose of more than 200 mg/dL in a nonstressed, ambulatory subject supports the diagnosis of Diabetes Mellitus. Performed By: #### C BC, LACTIC, HS TROP, BMP #### [address] Magnesiumon 07-14-2021 Magnesium Normal 1.6-2.6 [facility] Comment on above: Result Comment: Spec imen hemolyzed, redraw requested PERFORMED BY: [place] [id number] PATHOLOGIST VULCANIZING MACHINE OPERATOR OTILIA BAIRD M.D. Performed By: #### C OVID 19 [facility] [place], COVID-19 VALDEMAR, SOFIANEG #### [address] Redraw Magnesiumon 1 Magnesium [Mass/Vol] 1.9 mg/dL Normal 1.6-2.6 [facility] Comment on above: Order Comment: Speci men hemolyzed, redraw requested Result Comment: PERF ORMED BY: [place] [id number] PATHOLOGIST VULCANIZING MACHINE OPERATOR OTILIA BAIRD M.D. Performed By: #### C OVID 19 [facility] [place], COVID-19 VALDEMAR, SOFIANEG #### [address] Redraw Potassiumon 1 Potassium [Moles/Vol] 3.7 mmol/L Normal 3.5-5.1 [facility] Comment on above: Order Comment: Speci men hemolyzed, redraw requested Performed By: #### C OVID 19 [facility] [place], COVID-19 VALDEMAR, SOFIANEG #### [address] Basic Metabolic Panelon 09- Calcium [Mass/Vol] 9.3 mg/dL Normal 8.2-10.2 [facility] Comment on above: Performed By: #### C BC, LACTIC, HS TROP, BMP #### [facility] [address] Chloride [Moles/Vol] 92 mmol/L Low 95-114 [facility] Comment on above: Performed By: #### C BC, LACTIC, HS TROP, BMP #### [facility] [address] CO2 [Moles/Vol] 37.7 mmol/L High 22.0-30.0 [facility] Comment on above: Performed By: #### C BC, LACTIC, HS TROP, BMP #### [address] Creatinine [Mass/Vol] 0.80 mg/dL Normal 0.44-1.03 [facility] Comment on above: Performed By: #### C BC, LACTIC, HS TROP, BMP #### [place] [address] [place] Creatinine Clr Calc Pharmacy 105.32 [facility] Comment on above: Result Comment: PERF ORMED BY: [place] [id number] PATHOLOGIST VULCANIZING MACHINE OPERATOR OTILIA BAIRD M.D. Performed By: #### C BC, LACTIC, HS TROP, BMP #### [address] Estimated GFR ( Hilary > 60 [facility] Comment on above: Result Comment: GFR estimated reference range: According to KDOQI guidelines, <60 ml/min/1.73m2 is sufficient to diagnose a patient with chronic kidney disease. Performed By: #### C BC, LACTIC, HS TROP, BMP #### [address] Estimated GFR (Non- Am > 60 [facility] Comment on above: Performed By: #### C BC, LACTIC, HS TROP, BMP #### [address] [place] [address] [place] Glucose [Mass/Vol] 94 mg/dL Normal 70-100 [facility] Comment on above: Result Comment: [place] om Glucose Reference Range is dependent on time and content of last meal. Glucose of more than 200 mg/dL in a nonstressed, ambulatory subject supports the diagnosis of Diabetes Mellitus. ADA recommended reference range Performed By: #### C BC, LACTIC, HS TROP, BMP #### [address] Potassium [Moles/Vol] 3.6 mmol/L Normal 3.5-5.1 [facility] Comment on above: Performed By: #### C BC, LACTIC, HS TROP, BMP #### [address] Sodium [Moles/Vol] 139 mmol/L Normal 136-146 [facility] Comment on above: Performed By: #### C BC, LACTIC, HS TROP, BMP #### [address] Urea nitrogen [Mass/Vol] 18 mg/dL Normal 9- [facility] Comment on above: Performed By: #### C BC, LACTIC, HS TROP, BMP #### [address] Glucose Poct Glucometerson 0 07-13-2021 Commemt1 Glu2: Cleaned Meter Normal [facility] Comment on above: Result Comment: PERF ORMED BY: [place] [id number] PATHOLOGIST VULCANIZING MACHINE OPERATOR OTILIA BAIRD M.D. Performed By: #### C BC, LACTIC, HS TROP, BMP #### [place] [address] [place] Glucose [Mass/Vol] 180 mg/dL Normal [facility] Comment on above: Result Comment: [place] om Glucose Reference Range is dependent on time and content of last meal. Glucose of more than 200 mg/dL in a nonstressed, ambulatory subject supports the diagnosis of Diabetes Mellitus. Performed By: #### C BC, LACTIC, HS TROP, BMP #### [address] Commemt1 Glu2: Cleaned Meter Normal [facility] Comment on above: Result Comment: PERF ORMED BY: [place] [id number] PATHOLOGIST VULCANIZING MACHINE OPERATOR OTILIA BAIRD M.D. Performed By: #### C BC, LACTIC, HS TROP, BMP #### [address] Glucose [Mass/Vol] 128 mg/dL Normal [facility] Comment on above: Result Comment: [place] om Glucose Reference Range is dependent on time and content of last meal. Glucose of more than 200 mg/dL in a nonstressed, ambulatory subject supports the diagnosis of Diabetes Mellitus. Performed By: #### C BC, LACTIC, HS TROP, BMP #### [address] Glucose [Mass/Vol] 95 mg/dL Normal [facility] Comment on above: Result Comment: [place] om Glucose Reference Range is dependent on time and content of last meal. Glucose of more than 200 mg/dL in a nonstressed, ambulatory subject supports the diagnosis of Diabetes Mellitus. PERFORMED BY: [place] [id number] PATHOLOGIST VULCANIZING MACHINE OPERATOR OTILIA BAIRD M.D. Performed By: #### C BC, LACTIC, HS TROP, BMP #### [address] Basic Metabolic Panelon 07-01 Calcium [Mass/Vol] 9.3 mg/dL Normal 8.2-10.2 [facility] Comment on above: Performed By: #### C BC, LACTIC, HS TROP, BMP #### [address] Chloride [Moles/Vol] 86 mmol/L Low 95-114 [facility] Comment on above: Performed By: #### C BC, LACTIC, HS TROP, BMP #### [address] [place] [address] [place] CO2 [Moles/Vol] 43.4 mmol/L High 22.0-30.0 [facility] Comment on above: Performed By: #### C BC, LACTIC, HS TROP, BMP #### [facility] [address] Creatinine [Mass/Vol] 0.86 mg/dL Normal 0.44-1.03 [facility] Comment on above: Performed By: #### C BC, LACTIC, HS TROP, BMP #### [place] [address] [place] Creatinine Clr Calc Pharmacy 103.59 [facility] Comment on above: Result Comment: PERF ORMED BY: [place] [id number] PATHOLOGIST VULCANIZING MACHINE OPERATOR OTILIA BAIRD M.D. Performed By: #### C BC, LACTIC, HS TROP, BMP #### [address] Estimated GFR ( Hilary > 60 [facility] Comment on above: Result Comment: GFR estimated reference range: According to KDOQI guidelines, <60 ml/min/1.73m2 is sufficient to diagnose a patient with chronic kidney disease. Performed By: #### C BC, LACTIC, HS TROP, BMP #### [address] Estimated GFR (Non- Am > 60 [facility] Comment on above: Performed By: #### C BC, LACTIC, HS TROP, BMP #### [place] [address] [place] Glucose [Mass/Vol] 94 mg/dL Normal 70-100 [facility] Comment on above: Result Comment: [place] om Glucose Reference Range is dependent on time and content of last meal. Glucose of more than 200 mg/dL in a nonstressed, ambulatory subject supports the diagnosis of Diabetes Mellitus. ADA recommended reference range Performed By: #### C BC, LACTIC, HS TROP, BMP #### [place] [address] [place] Potassium [Moles/Vol] 3.6 mmol/L Normal 3.5-5.1 [facility] Comment on above: Performed By: #### C BC, LACTIC, HS TROP, BMP #### [facility] [address] Sodium [Moles/Vol] 139 mmol/L Normal 136-146 [facility] Comment on above: Performed By: #### C BC, LACTIC, HS TROP, BMP #### [facility] [address] Urea nitrogen [Mass/Vol] 18 mg/dL Normal 9- [facility] Comment on above: Performed By: #### C BC, LACTIC, HS TROP, BMP #### [facility] [address] Glucose Poct Glucometerson 0 07-12-2021 Glucose [Mass/Vol] 138 mg/dL Normal [facility] Comment on above: Result Comment: [place] om Glucose Reference Range is dependent on time and content of last meal. Glucose of more than 200 mg/dL in a nonstressed, ambulatory subject supports the diagnosis of Diabetes Mellitus. PERFORMED BY: [place] [id number] PATHOLOGIST VULCANIZING MACHINE OPERATOR OTILIA BAIRD M.D. Performed By: #### C BC, LACTIC, HS TROP, BMP #### [address] Commemt1 Glu2: Cleaned Meter Normal [facility] Comment on above: Result Comment: PERF ORMED BY: [place] [id number] PATHOLOGIST VULCANIZING MACHINE OPERATOR OTILIA BAIRD M.D. Performed By: #### C BC, LACTIC, HS TROP, BMP #### [facility] [address] [place] [address] Glucose [Mass/Vol] 255 mg/dL Normal [facility] Comment on above: Result Comment: [place] om Glucose Reference Range is dependent on time and content of last meal. Glucose of more than 200 mg/dL in a nonstressed, ambulatory subject supports the diagnosis of Diabetes Mellitus. Performed By: #### C BC, LACTIC, HS TROP, BMP #### [address] Commemt1 Glu2: Cleaned Meter [facility] Comment on above: Result Comment: PERF ORMED BY: [place] [id number] PATHOLOGIST VULCANIZING MACHINE OPERATOR OTILIA BAIRD M.D. Performed By: #### C BC, LACTIC, HS TROP, BMP #### [address] Glucose [Mass/Vol] 133 mg/dL Normal [facility] Comment on above: Result Comment: [place] om Glucose Reference Range is dependent on time and content of last meal. Glucose of more than 200 mg/dL in a nonstressed, ambulatory subject supports the diagnosis of Diabetes Mellitus. Performed By: #### C BC, LACTIC, HS TROP, BMP #### [address] Commemt1 Glu2: Cleaned Meter [facility] Comment on above: Result Comment: PERF ORMED BY: [place] [id number] PATHOLOGIST VULCANIZING MACHINE OPERATOR OTILIA BAIRD M.D. Performed By: #### C BC, LACTIC, HS TROP, BMP #### [address] Glucose [Mass/Vol] 100 mg/dL Normal [facility] Comment on above: Result Comment: [place] om Glucose Reference Range is dependent on time and content of last meal. Glucose of more than 200 mg/dL in a nonstressed, ambulatory subject supports the diagnosis of Diabetes Mellitus. Performed By: #### C BC, LACTIC, HS TROP, BMP #### [address] Basic Metabolic Panelon 07-01 Calcium [Mass/Vol] 9.5 mg/dL Normal 8.2-10.2 [facility] Comment on above: Performed By: #### C BC, LACTIC, HS TROP, BMP #### [facility] [address] [place] [address] [place] Chloride [Moles/Vol] 85 mmol/L Low 95-114 [facility] Comment on above: Performed By: #### C BC, LACTIC, HS TROP, BMP #### [facility] [address] [place] [address] [place] CO2 [Moles/Vol] 39.6 mmol/L High 22.0-30.0 [facility] Comment on above: Performed By: #### C BC, LACTIC, HS TROP, BMP #### [facility] [address] [place] [address] [place] Creatinine [Mass/Vol] 0.99 mg/dL Normal 0.44-1.03 [facility] Comment on above: Performed By: #### C BC, LACTIC, HS TROP, BMP #### [facility] [address] [place] [address] [place] Creatinine Clr Calc Pharmacy 89.99 [facility] Comment on above: Result Comment: PERF ORMED BY: [place] [id number] PATHOLOGIST VULCANIZING MACHINE OPERATOR OTILIA BAIRD M.D. Performed By: #### C BC, LACTIC, HS TROP, BMP #### [facility] [address] Estimated GFR ( Hilary > 60 [facility] Comment on above: Result Comment: GFR estimated reference range: According to KDOQI guidelines, <60 ml/min/1.73m2 is sufficient to diagnose a patient with chronic kidney disease. Performed By: #### C BC, LACTIC, HS TROP, BMP #### [facility] [address] [place] [address] [place] Estimated GFR (Non- Am 58 [facility] Comment on above: Performed By: #### C BC, LACTIC, HS TROP, BMP #### [facility] [address] [place] [address] [place] Glucose [Mass/Vol] 189 mg/dL High 70-100 [facility] Comment on above: Result Comment: [place] om Glucose Reference Range is dependent on time and content of last meal. Glucose of more than 200 mg/dL in a nonstressed, ambulatory subject supports the diagnosis of Diabetes Mellitus. ADA recommended reference range Performed By: #### C BC, LACTIC, HS TROP, BMP #### [facility] [address] Potassium [Moles/Vol] 4.3 mmol/L Normal 3.5-5.1 [facility] Comment on above: Performed By: #### C BC, LACTIC, HS TROP, BMP #### [facility] [address] Sodium [Moles/Vol] 135 mmol/L Low 136-146 [facility] Comment on above: Performed By: #### C BC, LACTIC, HS TROP, BMP #### [facility] [address] Urea nitrogen [Mass/Vol] 21 mg/dL Normal 9- [facility] Comment on above: Performed By: #### C BC, LACTIC, HS TROP, BMP #### [address] Glucose Poct Glucometerson 0 07-11-2021 Commemt1 Glu2: Cleaned Meter [facility] Comment on above: Result Comment: PERF ORMED BY: [place] [id number] PATHOLOGIST VULCANIZING MACHINE OPERATOR OTILIA BAIRD M.D. Performed By: #### C BC, LACTIC, HS TROP, BMP #### [address] Glucose [Mass/Vol] 202 mg/dL Normal [facility] Comment on above: Result Comment: [place] om Glucose Reference Range is dependent on time and content of last meal. Glucose of more than 200 mg/dL in a nonstressed, ambulatory subject supports the diagnosis of Diabetes Mellitus. Performed By: #### C BC, LACTIC, HS TROP, BMP #### [address] Commemt1 Glu2: Cleaned Meter [facility] Comment on above: Result Comment: PERF ORMED BY: [place] [id number] PATHOLOGIST VULCANIZING MACHINE OPERATOR OTILIA BAIRD M.D. Performed By: #### C BC, LACTIC, HS TROP, BMP #### [address] Glucose [Mass/Vol] 249 mg/dL Normal [facility] Comment on above: Result Comment: [place] Glucose Reference Range is dependent on time and content of last meal. Glucose of more than 200 mg/dL in a nonstressed, ambulatory subject supports the diagnosis of Diabetes Mellitus. Performed By: #### C BC, LACTIC, HS TROP, BMP #### [address] Commemt1 Glu2: Cleaned Meter Normal [facility] Comment on above: Result Comment: PERF ORMED BY: [place] [id number] PATHOLOGIST VULCANIZING MACHINE OPERATOR OTILIA BAIRD M.D. Performed By: #### C BC, LACTIC, HS TROP, BMP #### [place] [address] [place] Glucose [Mass/Vol] 141 mg/dL Normal [facility] Comment on above: Result Comment: [place] Glucose Reference Range is dependent on time and content of last meal. Glucose of more than 200 mg/dL in a nonstressed, ambulatory subject supports the diagnosis of Diabetes Mellitus. Performed By: #### C BC, LACTIC, HS TROP, BMP #### [facility] [address] [place] [address] Commemt1 Glu2: Cleaned Meter Normal [facility] Comment on above: Result Comment: PERF ORMED BY: [place] [id number] PATHOLOGIST VULCANIZING MACHINE OPERATOR OTILIA BAIRD M.D. Performed By: #### C BC, LACTIC, HS TROP, BMP #### [place] [address] [place] Glucose [Mass/Vol] 103 mg/dL Normal [facility] Comment on above: Result Comment: [place] Glucose Reference Range is dependent on time and content of last meal. Glucose of more than 200 mg/dL in a nonstressed, ambulatory subject supports the diagnosis of Diabetes Mellitus. Performed By: #### C BC, LACTIC, HS TROP, BMP #### [facility] [address] Arterial Blood Gason 021 ABG Base Excess 17.0 mmol/L High -3.0-3.0 [facility] Comment on above: Performed By: #### C BC, LACTIC, HS TROP, BMP #### [facility] [address] ABG Frac Inspired O2 60 % Normal [facility] Comment on above: Performed By: #### C BC, LACTIC, HS TROP, BMP #### [facility] [address] [place] [address] ABG Oxygen Content 7.6 mmol/L Normal 6.6-9.7 [facility] Comment on above: Performed By: #### C BC, LACTIC, HS TROP, BMP #### [facility] [address] [place] [address] ABG Oxygen Saturation 94.3 % Low 95.0-100.0 [facility] Comment on above: Performed By: #### C BC, LACTIC, HS TROP, BMP #### [facility] [address] [place] [address] ABG PCO2 90.7 mm[Hg] Off scale high 35.0-45.0 [facility] Comment on above: Performed By: #### C BC, LACTIC, HS TROP, BMP #### [facility] [address] [place] [address] ABG PH 7.34 Low 7.35-7.45 [facility] Comment on above: Performed By: #### C BC, LACTIC, HS TROP, BMP #### [facility] [address] [place] [address] ABG PO2 77.7 mm[Hg] Low 80.0-100.0 [facility] Comment on above: Performed By: #### C BC, LACTIC, HS TROP, BMP #### [facility] [address] [place] [address] CO2 [Moles/Vol] 50.1 mmol/L High 23.0-27.0 [facility] Comment on above: Performed By: #### C BC, LACTIC, HS TROP, BMP #### [facility] [address] [place] [address] HCO3 (Bld) [Moles/Vol] 47.3 mmol/L High 23.0-29.0 [facility] Comment on above: Performed By: #### C BC, LACTIC, HS TROP, BMP #### [address] Respiratory Critical [facility] Comment on above: Result Comment: Crit ical Value called on: 07/10/2021 at 05:01 PERFORMED BY: [place] [id number] PATHOLOGIST VULCANIZING MACHINE OPERATOR OTILIA BAIRD M.D. Performed By: #### C BC, LACTIC, HS TROP, BMP #### [address] Set Respiratory Rate 12 Normal [facility] Comment on above: Performed By: #### C BC, LACTIC, HS TROP, BMP #### [address] VBG Draw Site Right Radial Normal [facility] Comment on above: Performed By: #### C BC, LACTIC, HS TROP, BMP #### [address] Basic Metabolic Panelon 07-01 Calcium [Mass/Vol] 9.4 mg/dL Normal 8.2-10.2 [facility] Comment on above: Performed By: #### C BC, LACTIC, HS TROP, BMP #### [facility] [address] [place] [address] Chloride [Moles/Vol] 88 mmol/L Low 95-114 [facility] Comment on above: Performed By: #### C BC, LACTIC, HS TROP, BMP #### [facility] [address] [place] [address] [place] CO2 [Moles/Vol] 41.2 mmol/L High 22.0-30.0 [facility] Comment on above: Performed By: #### C BC, LACTIC, HS TROP, BMP #### [facility] [address] Creatinine [Mass/Vol] 0.74 mg/dL Normal 0.44-1.03 [facility] Comment on above: Performed By: #### C BC, LACTIC, HS TROP, BMP #### [facility] [address] [place] [address] [place] Creatinine Clr Calc Pharmacy 122.16 [facility] Comment on above: Result Comment: PERF ORMED BY: [place] [id number] PATHOLOGIST VULCANIZING MACHINE OPERATOR OTILIA BAIRD M.D. Performed By: #### C BC, LACTIC, HS TROP, BMP #### [address] Estimated GFR ( Hilary > 60 [facility] Comment on above: Result Comment: GFR estimated reference range: According to KDOQI guidelines, <60 ml/min/1.73m2 is sufficient to diagnose a patient with chronic kidney disease. Performed By: #### C BC, LACTIC, HS TROP, BMP #### [facility] [address] [place] [address] Estimated GFR (Non- Am > 60 [facility] Comment on above: Performed By: #### C BC, LACTIC, HS TROP, BMP #### [address] Glucose [Mass/Vol] 94 mg/dL Normal 70-100 [facility] Comment on above: Result Comment: [place] Glucose Reference Range is dependent on time and content of last meal. Glucose of more than 200 mg/dL in a nonstressed, ambulatory subject supports the diagnosis of Diabetes Mellitus. ADA recommended reference range Performed By: #### C BC, LACTIC, HS TROP, BMP #### [facility] [address] [place] [id number] [place] Potassium [Moles/Vol] 3.9 mmol/L Normal 3.5-5.1 [facility] Comment on above: Performed By: #### C BC, LACTIC, HS TROP, BMP #### [facility] [address] [place] [address] [place] Sodium [Moles/Vol] 138 mmol/L Normal 136-146 [facility] Comment on above: Performed By: #### C BC, LACTIC, HS TROP, BMP #### [facility] [address] Urea nitrogen [Mass/Vol] 15 mg/dL Normal 9-23 [facility] Comment on above: Performed By: #### C BC, LACTIC, HS TROP, BMP #### [facility] [address] ECH echo transthoracicon [facility] echo transthoracic [facility] Main [place] [address] [place] [address] Echocardiogram Signed Patient: Sis Moore MR#: [id number] : 1965 Acct:[id number] Age/Sex: 55 / F ADM Date: 07/09/21 Loc: Room: [address] [place] [address] Type: ADM IN Attending Dr: Colby Camara MD Ordering Provider: Colby Camara MD Date of Service: 07/09/21 ECH/ECH echo transthoracic: dyspnea; assess right ventricular pressures Copies to: MD Devorah Ingram MD Weight: 284 lb Performed By: BISI Vang BSA: 2.4 m2 BP: 103/63 mmHg HR: 90 Reason For Study: dyspnea; assess right ventricular pressures History: COPD. DM. Former Smoker. HTN. ROLANDO. Interpretation Summary Ejection Fraction = 55-60%. The left ventricular wall motion is normal. Mild concentric left ventricular hypertrophy. A variety of Doppler measurements indicate impaired left ventricular relaxation, which is associated with grade I/IV or mild diastolic dysfunction. There is no comparison study available. Procedure/Quality: A two-dimensional transthoracic echocardiogram with color flow and Doppler was performed. The study was technically suboptimal in quality due to patient body habitus . Left Ventricle: The left ventricular thickness is normal. Mild concentric left ventricular hypertrophy. Ejection Fraction = 55-60%. A variety of Doppler measurements indicate impaired left ventricular relaxation, which is associated with grade I/IV or mild diastolic dysfunction. The left ventricular wall motion is normal. Left Atrium: The left atrium appears normal in size. Right Atrium: The right atrium appears normal in size. Right Ventricle: The right ventricular size, thickness and function are normal. Aortic Valve: The aortic valve is normal in structure and function. No aortic regurgitation is present. Mitral Valve: The mitral valve is normal in structure and function. There is no mitral regurgitation noted. Tricuspid Valve: The tricuspid valve is normal in structure and function. No tricuspid regurgitation. Pulmonic Valve: The pulmonic valve is normal in structure and function. Arteries: The aortic root is normal size. Pericardium/Pleura: No pericardial effusion seen. There is no pleural effusion. IVC/Hepatic Viens: The inferior vena cava is normal in size, with a normal collapsibility index. Measurements with Normals IVSd: 1.1 cm (0.7-1.1 cm)LVIDd: 5.4 cm (3.7-5.4 cm) LVPWd: 1.2 cm (0.7-1.1 cm)LVIDs: 3.4 cm (2.3-3.6 cm) LA dimension: 3.8 cm(2.3-4.0 cm)Ao root diam: 3.0 cm(2.0-3.2 cm) Doppler with Normals LV V1 max: 123.4 cm/sec (0.7-1.7m/s)MV E max surinder: 123.0 cm/sec(0.8-1.3m/s) MV A max surinder: 104.1 cm/sec(0.0-0.0m/s) MV E/A: 1.2 (<1.5) MMode/2D Measurements Calculations RVDd: 3.7 cm FS: 37.9 % Ao root area: 7.3 cm2 LVLd ap4: 6.5 cm TAPSE: 2.5 cm EDV(Teich): EDV(MOD-sp4): RV S Surinder: 144.1 ml 45.2 ml 13.6 cm/sec ESV(Teich): LVLs ap4: 5.4 cm 46.8 ml ESV(MOD-sp4): EF(Teich): 67.5 % 17.7 ml EF(MOD-sp4): 60.8 % __ SV(MOD-sp4): LAV(MOD-sp4): LA A2 area: 17.0 cm2 27.5 ml 61.9 ml LAV(MOD-sp2): LA A4 area: 21.7 cm2 51.1 ml LA length (vol): 6.2 cm LA vol: 50.2 ml LA vol index: 20.9 ml/m2 Doppler Measurements Calculations MV dec time: MV max PG: E/E' lat: 10.3 MV dec slope: 0.25 sec 82.0 mmHg E/E' med: 12.4 485.3 cm/sec2 __ Ao V2 max: LV V1 max PG: MR max surinder: RAP systole: 8.0 mmHg 200.7 cm/sec 6.1 mmHg 454.1 cm/sec Ao max PG: LV V1 mean PG: MR max P.1 mmHg 4.2 mmHg 82.5 mmHg Ao mean PG: LV V1 mean: 9.4 mmHg 100.5 cm/sec Ao V2 mean: LV V1 VTI: 21.9 cm 143.9 cm/sec Ao V2 VTI: 36.5 cm Transcribed By: ALEX 07/10/21 1324 Dictated By: Devorah Salas MD 07/10/21 1037 Signed By: 07/10/21 1324 [facility] Glucose Poct Glucometerson 0 07-10-2021 Commemt1 Glu2: Cleaned Meter [facility] Comment on above: Result Comment: PERF ORMED BY: [facility] [address] [place] [address] PATHOLOGIST VULCANIZING MACHINE OPERATOR OTILIA BAIRD M.D. Performed By: #### C BC, LACTIC, HS TROP, BMP #### [address] Glucose [Mass/Vol] 124 mg/dL Normal [facility] Comment on above: Result Comment: [place] om Glucose Reference Range is dependent on time and content of last meal. Glucose of more than 200 mg/dL in a nonstressed, ambulatory subject supports the diagnosis of Diabetes Mellitus. Performed By: #### C BC, LACTIC, HS TROP, BMP #### [address] Commemt1 Glu2: Cleaned Meter [facility] Comment on above: Result Comment: PERF ORMED BY: [place] [id number] PATHOLOGIST VULCANIZING MACHINE OPERATOR OTILIA BAIRD M.D. Performed By: #### C BC, LACTIC, HS TROP, BMP #### [address] Glucose [Mass/Vol] 293 mg/dL Normal [facility] Comment on above: Result Comment: [place] Glucose Reference Range is dependent on time and content of last meal. Glucose of more than 200 mg/dL in a nonstressed, ambulatory subject supports the diagnosis of Diabetes Mellitus. Performed By: #### C BC, LACTIC, HS TROP, BMP #### [facility] [address] [place] [address] Commemt1 Glu2: Cleaned Meter [facility] Comment on above: Result Comment: PERF ORMED BY: [facility] [address] [place] [address] PATHOLOGIST VULCANIZING MACHINE OPERATOR OTILIA BAIRD M.D. Performed By: #### C BC, LACTIC, HS TROP, BMP #### [place] [id number] [facility] Glucose [Mass/Vol] 140 mg/dL Normal [facility] Comment on above: Result Comment: [place] Glucose Reference Range is dependent on time and content of last meal. Glucose of more than 200 mg/dL in a nonstressed, ambulatory subject supports the diagnosis of Diabetes Mellitus. Performed By: #### C BC, LACTIC, HS TROP, BMP #### [address] Glucose [Mass/Vol] 105 mg/dL Normal [facility] Comment on above: Result Comment: [facility] Glucose Reference Range is dependent on time and content of last meal. Glucose of more than 200 mg/dL in a nonstressed, ambulatory subject supports the diagnosis of Diabetes Mellitus. PERFORMED BY: [place] [id number] PATHOLOGIST VULCANIZING MACHINE OPERATOR OTILIA BAIRD M.D. Performed By: #### C BC, LACTIC, HS TROP, BMP #### [address] B-Type Natriuretic Peptideon 07-09-2021 Natriuretic peptide B (Bld) [Mass/Vol] 121.0 pg/mL High 5-100 [facility] Comment on above: Result Comment: PERF ORMED BY: [place] [id number] PATHOLOGIST VULCANIZING MACHINE OPERATOR OTILIA BAIRD M.D. Performed By: #### C BC, LACTIC, HS TROP, BMP #### [address] Basic Metabolic Panelon Calcium [Mass/Vol] 9.0 mg/dL Normal 8.2-10.2 [facility] Comment on above: Performed By: #### C BC, LACTIC, HS TROP, BMP #### [facility] [address] [place] [address] [place] Chloride [Moles/Vol] 92 mmol/L Low 95-114 [facility] Comment on above: Performed By: #### C BC, LACTIC, HS TROP, BMP #### [facility] [address] CO2 [Moles/Vol] 36.9 mmol/L High 22.0-30.0 [facility] Comment on above: Performed By: #### C BC, LACTIC, HS TROP, BMP #### [facility] [address] Creatinine [Mass/Vol] 0.66 mg/dL Normal 0.44-1.03 [facility] Comment on above: Performed By: #### C BC, LACTIC, HS TROP, BMP #### [facility] [address] [place] [address] [place] Creatinine Clr Calc Pharmacy 137.69 [facility] Comment on above: Result Comment: PERF ORMED BY: [place] [id number] PATHOLOGIST VULCANIZING MACHINE OPERATOR OTILIA BAIRD M.D. Performed By: #### C BC, LACTIC, HS TROP, BMP #### [facility] [address] Estimated GFR ( Hilary > 60 [facility] Comment on above: Result Comment: GFR estimated reference range: According to KDOQI guidelines, <60 ml/min/1.73m2 is sufficient to diagnose a patient with chronic kidney disease. Performed By: #### C BC, LACTIC, HS TROP, BMP #### [facility] [address] Estimated GFR (Non- Am > 60 [facility] Comment on above: Performed By: #### C BC, LACTIC, HS TROP, BMP #### [facility] [address] Glucose [Mass/Vol] 119 mg/dL High 70-100 [facility] Comment on above: Result Comment: [place] Glucose Reference Range is dependent on time and content of last meal. Glucose of more than 200 mg/dL in a nonstressed, ambulatory subject supports the diagnosis of Diabetes Mellitus. ADA recommended reference range Performed By: #### C BC, LACTIC, HS TROP, BMP #### [facility] [address] Potassium [Moles/Vol] 4.5 mmol/L Normal 3.5-5.1 [facility] Comment on above: Performed By: #### C BC, LACTIC, HS TROP, BMP #### [facility] [address] [place] [address] [place] Sodium [Moles/Vol] 137 mmol/L Normal 136-146 [facility] Comment on above: Performed By: #### C BC, LACTIC, HS TROP, BMP #### [facility] [address] [place] [id number] [place] Urea nitrogen [Mass/Vol] 9 mg/dL Normal 9-23 [facility] Comment on above: Performed By: #### C BC, LACTIC, HS TROP, BMP #### [facility] [address] COVID-19 Antigenon 1 COVID-19 Antigen Healthcare Worker?: N Valdemar Reference Valdemar Reference Negative SARS-CoV+SARS-CoV-2 (COVID-19) Ag [Presence] in Respiratory specimen by Rapid immunoassay Negative for SARS Antigen by ROWDY COVID19 Blank Space Valdemar Disclaimer Negative results, from patients with symptom Valdemar Disclaimer onset beyond five days, should be treated as [place]demar Disclaimer presumptive and confirmation with a molecular Valdemar Disclaimer assay, if necessary, for patient management, Valdemar Disclaimer may be performed. Negative results do not rule Valdemar Disclaimer out COVID-19 and should not be used as the sole Valdemar Disclaimer basis for treatment or patient management Valdemar Disclaimer decisions, including infection control decisions. Valdemar Disclaimer Negative results should be considered in the Valdemar Disclaimer context of a patient's recent exposures, history Valdemar Disclaimer and the presence of clinical signs and symptoms Valdemar Disclaimer consistent with COVID-19. COVID19 Blank Space Valdemar Disclaimer The Valdemar SARS Antigen ROWDY does not differentiate Valdemar Disclaimer between SARS-CoV and SARS-CoV-2. COVID19 Blank Space Valdemar Disclaimer This test was developed and its performance Valdemar Disclaimer characteristic determined by [employer] and Valdemar Disclaimer validated at [facility]. This Valdemar Disclaimer test has not been FDA cleared or approved. This Valdemar Disclaimer test has been authorized by FDA under an Emergency Use Valdemar Disclaimer Authorization (EUA). This test has been validated Valdemar Disclaimer in accordance with the FDA's Guidance Document (Policy Valdemar Disclaimer for Diagnostics Testing in Laboratories Certified to Valdemar Disclaimer Perform High Complexity Testing under CLIA prior to Valdemar Disclaimer Emergency Use Authorization for Coronavirus Valdemar Disclaimer iseas-2018 during the Public Health Emergency) Valdemar Disclaimer issued on January 31, 2020. This test is only authorized Valdemar Disclaimer for the duration of time the declaration that Valdemar Disclaimer circumstances exist justifying the authorization of Valdemar Disclaimer the emergency use of in vitro diagnostic tests for Valdemar Disclaimer detection of SARS-CoV-2 virus and/or diagnosis of Valdemar Disclaimer COVID-19 infection under section 564(b)(1) of the Valdemar Disclaimer Act, 21 U.S.C. 360bbb-3(b)(1), unless the Valdemar Disclaimer authorization is terminated or revoked sooner. PERFORMED BY: [place] [id number] PATHOLOGIST VULCANIZING MACHINE OPERATOR OTILIA BAIRD M.D. [facility] Comment on above: Performed By: #### C OVID 19 [facility], COVID-19 VALDEMAR SOFIANEG #### [address] [facility] [place] SARS-CoV-2 (COVID-19) RNA PANDA+probe Ql (Unsp spec) Negative Normal Negative [facility] Comment on above: Order Comment: Healt hcare Worker?: N Result Comment: Testing for SARS-CoV-2 by RT-PCR This test was developed and its performance characteristics determined by [employer]) and validated at the [facility]. This test has not been FDA cleared or approved. This test has been authorized by FDA under an Emergency Use Authorization (EUA). This test has been validated in accordance with the FDA's Guidance Document (Policy for Diagnostics Testing in Laboratories Certified to Perform High Complexity Testing under CLIA prior to Emergency Use Authorization for Coronavirus Disease-2019 during the Public Health Emergency) issued on January 31, 2020. This test is only authorized for the duration of time the declaration that circumstances exist justifying the authorization of the emergency use of in vitro diagnostic tests for detection of SARS-CoV-2 virus and/or diagnosis of COVID-19 infection under section 564(b)(1) of the Act, 21 U.S.C. 360bbb-3(b)(1), unless the authorization is terminated or revoked sooner. PERFORMED BY: [facility] [address] [place] [address] PATHOLOGIST VULCANIZING MACHINE OPERATOR OTILIA BAIRD M.D. Performed By: #### C OVID 19 [facility], COVID-19 VALDEMAR, SOFIANEG #### [address] Complete Blood Count Auto Di ffon 07-09-2021 Basophils (Bld) [#/Vol] 0.0 10*3/uL Normal 0.0-0.2 [facility] Comment on above: Result Comment: PERF ORMED BY: [facility] [address] [place] [address] PATHOLOGIST VULCANIZING MACHINE OPERATOR OTILIA BAIRD M.D. Performed By: #### C BC, LACTIC, HS TROP, BMP #### [address] Basophils/100 WBC (Bld) 0.4 % Normal . [facility] Comment on above: Performed By: #### C BC, LACTIC, HS TROP, BMP #### [address] Eosinophils (Bld) [#/Vol] 0.2 10*3/uL Normal 0.0-0.45 [facility] Comment on above: Performed By: #### C BC, LACTIC, HS TROP, BMP #### [address] Eosinophils/100 WBC (Bld) 2.5 % Normal . [facility] Comment on above: Performed By: #### C BC, LACTIC, HS TROP, BMP #### [address] Erythrocyte distribution width (RBC) [Ratio] 18.9 % High 11.9-15.3 [facility] Comment on above: Performed By: #### C BC, LACTIC, HS TROP, BMP #### [address] Hematocrit (Bld) [Volume fraction] 39.5 % Normal 34.0-46.4 [facility] Comment on above: Performed By: #### C BC, LACTIC, HS TROP, BMP #### [address] Hemoglobin (Bld) [Mass/Vol] 12.8 g/dL Normal 11.8-15.4 [facility] Comment on above: Performed By: #### C BC, LACTIC, HS TROP, BMP #### [address] Lymphocytes (Bld) [#/Vol] 0.7 10*3/uL Low 1.00-4.8 [facility] Comment on above: Performed By: #### C BC, LACTIC, HS TROP, BMP #### [address] Lymphocytes/100 WBC (Bld) 9.3 % Normal . [facility] Comment on above: Performed By: #### C BC, LACTIC, HS TROP, BMP #### [address] MCH (RBC) [Entitic mass] 28.8 pg Normal 24.7-34.3 [facility] Comment on above: Performed By: #### C BC, LACTIC, HS TROP, BMP #### [facility] [address] MCV (RBC) [Entitic vol] 89.1 fL Normal 80-100 [facility] Comment on above: Performed By: #### C BC, LACTIC, HS TROP, BMP #### [address] Mean Corpuscular HGB Conc 32.4 g/dL Normal 32.0-35.0 [facility] Comment on above: Performed By: #### C BC, LACTIC, HS TROP, BMP #### [address] Monocytes (Bld) [#/Vol] 0.7 10*3/uL Normal 0.0-0.8 [facility] Comment on above: Performed By: #### C BC, LACTIC, HS TROP, BMP #### [address] Monocytes/100 WBC (Bld) 8.4 % Normal . [facility] Comment on above: Performed By: #### C BC, LACTIC, HS TROP, BMP #### [address] Neutrophils (Bld) [#/Vol] 6.4 10*3/uL Normal 1.8-7.7 [facility] Comment on above: Performed By: #### C BC, LACTIC, HS TROP, BMP #### [place] [address] [place] Neutrophils/100 WBC (Bld) 79.4 % Normal . [facility] Comment on above: Performed By: #### C BC, LACTIC, HS TROP, BMP #### [place] [address] [place] Nucleated RBC/100 WBC (Bld) [Ratio] 0.2 % Normal 0-0.5 [facility] Comment on above: Performed By: #### C BC, LACTIC, HS TROP, BMP #### [facility] [address] Platelet mean volume (Bld) [Entitic vol] 9.4 fL Normal 6.3-10.7 [facility] System Comment on above: Performed By: #### C BC, LACTIC, HS TROP, BMP #### [facility] [address] Platelets (Bld) [#/Vol] 138 10*3/uL Low 150-450 [facility] Comment on above: Performed By: #### C BC, LACTIC, HS TROP, BMP #### [address] RBC (Bld) [#/Vol] 4.44 10*6/uL Normal 3.60-5.00 [facility] Comment on above: Performed By: #### C BC, LACTIC, HS TROP, BMP #### [address] WBC (Bld) [#/Vol] 8.0 10*3/uL Normal 4.5-11.0 [facility] Comment on above: Performed By: #### C BC, LACTIC, HS TROP, BMP #### [address] D-Dimer High Sensitivityon 0 07-09-2021 D-Dimer High Sensitivity 247 ng/mL High 0-243 [facility] Comment on above: Result Comment: The reference range for D-dimer is <243 ng/mL D-dimer units. D-dimer results must be used in conjunction with a clinical pretest probability (PTP) assessment model for deep vein thrombosis (DVT) and pulmonary embolism (PE). Results <230 ng/mL d-dimer units can be used as a negative predictor in patients with low or moderate probability for DVT/PE. Results above the exclusion threshold of 230 ng/ml D-dimer units for DVT/PE may indicate the need for further diagnostic testing. D-Dimer can be increased in hospitalized patients due to co-morbid conditions. PERFORMED BY: [place] [id number] PATHOLOGIST VULCANIZING MACHINE OPERATOR OTILIA BAIRD M.D. Performed By: #### C BC, LACTIC, HS TROP, BMP #### [facility] [address] [place] [id number] [place] ECG 12 lead ECGon 07-09-2021 ECG 12 lead ECG [facility] Main [place] [address] [place] [address] Electrocardiograph Report Signed Patient: Sis Moore MR#: [id number] : 1965 Acct:[id number] Age/Sex: 55 / F ADM Date: 07/09/21 Loc: Room: [address] [place] [address] Type: ADM IN Attending Dr: Kirk Lopez MD Ordering Provider: Carolee Abdalla DO Date of Service: 07/08/2106/20/2217 ECG/ECG 12 lead ECG: Shortness of Breath/Dyspnea Copies to: Test Reason : Blood Pressure : 142/067 mmHG Vent. Rate : 104 BPM Atrial Rate : 104 BPM P-R Int : 136 ms QRS Dur : 082 ms QT Int : 342 ms P-R-T Axes : 056 082 053 degrees QTc Int : 449 ms Sinus tachycardia Low voltage QRS Borderline ECG No previous ECGs available Confirmed by CAROLEE ABDALLA DO ([id number]) on 07/09/2021 1:45:33 AM Referred By: Electronically Signed By:CAROLEE ABDALLA DO Transcribed By: MUS Signed By Carolee Abdalla DO 07/09 0145 Normal [facility] Glucose Poct Glucometerson 0 07-09-2021 Commemt1 Glu2: Cleaned Meter Normal [facility] Comment on above: Result Comment: PERF ORMED BY: [place] [id number] PATHOLOGIST VULCANIZING MACHINE OPERATOR OTILIA BAIRD M.D. Performed By: #### C BC, LACTIC, HS TROP, BMP #### [facility] [address] [place], [place] [id number] [facility] Glucose [Mass/Vol] 154 mg/dL Normal [facility] Comment on above: Result Comment: [place] Glucose Reference Range is dependent on time and content of last meal. Glucose of more than 200 mg/dL in a nonstressed, ambulatory subject supports the diagnosis of Diabetes Mellitus. Performed By: #### C BC, LACTIC, HS TROP, BMP #### [facility] [address] [place] [address] [place] Glucose [Mass/Vol] 132 mg/dL Normal [facility] Comment on above: Result Comment: [place] om Glucose Reference Range is dependent on time and content of last meal. Glucose of more than 200 mg/dL in a nonstressed, ambulatory subject supports the diagnosis of Diabetes Mellitus. PERFORMED BY: [place] [id number] PATHOLOGIST VULCANIZING MACHINE OPERATOR OTILIA BAIRD M.D. Performed By: #### C BC, LACTIC, HS TROP, BMP #### [address] Glucose [Mass/Vol] 176 mg/dL Normal [facility] Comment on above: Result Comment: [place] om Glucose Reference Range is dependent on time and content of last meal. Glucose of more than 200 mg/dL in a nonstressed, ambulatory subject supports the diagnosis of Diabetes Mellitus. PERFORMED BY: [place] [id number] PATHOLOGIST VULCANIZING MACHINE OPERATOR OTILIA BAIRD M.D. Performed By: #### C BC, LACTIC, HS TROP, BMP #### [address] Glucose [Mass/Vol] 173 mg/dL Normal [facility] Comment on above: Result Comment: [place] om Glucose Reference Range is dependent on time and content of last meal. Glucose of more than 200 mg/dL in a nonstressed, ambulatory subject supports the diagnosis of Diabetes Mellitus. PERFORMED BY: [place] [id number] PATHOLOGIST VULCANIZING MACHINE OPERATOR OTILIA BAIRD M.D. Performed By: #### G LULS #### Point of Care testing , Lactic Acidon 07-09-2021 Lactate [Moles/Vol] 0.6 mmol/L Normal 0.5-2.2 [facility] Comment on above: Result Comment: PERF ORMED BY: [place] [id number] PATHOLOGIST VULCANIZING MACHINE OPERATOR OTILIA BAIRD M.D. Performed By: #### C BC, LACTIC, HS TROP, BMP #### [address] Valdemar Ag Negativeon 07-09-20 21 Valdemar Ag Negative Negative Normal Negative [facility] Comment on above: Result Comment: This is a duplicate Valdemar SARS Antigen (ROWDY) result to be used for statistical tracking purpose only. PERFORMED BY: [place] [id number] PATHOLOGIST VULCANIZING MACHINE OPERATOR OTILIA BAIRD M.D. Performed By: #### C OVID 19 [facility], COVID-19 VALDEMAR, SOFIANEG #### [address] Troponin I High Sensitivityo n 07-09-2021 Troponin I High Sensitivity 14 pg/mL Normal 0-15 [facility] Comment on above: Result Comment: PERF ORMED BY: [place] [id number] PATHOLOGIST VULCANIZING MACHINE OPERATOR OTILIA BAIRD M.D. Performed By: #### C BC, LACTIC, HS TROP, BMP #### [address] Venous Blood Gason CO2 [Moles/Vol] 40.3 mmol/L High 24.0-29.0 [facility] Comment on above: Performed By: #### V BG #### Point of Care testing , HCO3 (Bld) [Moles/Vol] 38.2 mmol/L High 23.0-29.0 [facility] Comment on above: Performed By: #### V BG #### Point of Care testing , Respiratory Critical Normal [facility] Comment on above: Result Comment: Crit ical Value called on: 07/08/2021 at 23:40 PERFORMED BY: [place] [id number] PATHOLOGIST VULCANIZING MACHINE OPERATOR OTILIA BAIRD M.D. Performed By: #### V BG #### Point of Care testing , VBG Base Excess 9.9 mmol/L High -3.0-3.0 [facility] Comment on above: Performed By: #### V BG #### Point of Care testing , VBG Draw Site Other Normal [facility] Comment on above: Performed By: #### V BG #### Point of Care testing , VBG Frac Inspired O2 70 % Normal [facility] Comment on above: Performed By: #### V BG #### Point of Care testing , VBG Oxygen Saturation 94.1 % Off scale high 73.0-76.0 [facility] Comment on above: Performed By: #### V BG #### Point of Care testing , VBG PCO2 70.1 mm[Hg] High 38.0-50.0 [facility] Comment on above: Performed By: #### V BG #### Point of Care testing , VBG PH Venous PH 7.35 Normal 7.32-7.43 [facility] Comment on above: Performed By: #### V BG #### Point of Care testing , VBG PO2 72.4 mm[Hg] High 35.0-45.0 [facility] Comment on above: Performed By: #### V BG #### Point of Care testing , XR chest 1V portableon 07-09 XR chest 1V portable [facility] [place] [address] XRay Report Signed Patient: Sis Moore MR#: [id number] : 1965 Acct:[id number] Age/Sex: 55 / F ADM Date: 07/09/21 Loc: Room: [address] [place] [address] Type: ADM IN Attending Dr: Kirk Lopez MD Ordering Provider: Carolee Abdalla DO Date of Service: 07/09/21 XR/XR chest 1V portable: Shortness of Breath/Dyspnea Copies to: DO Kirk Martinez MD Plain film chestsingle view HISTORY:Shortness of breath for 2 weeks low pulse ox. COMPARISON:None FINDINGS: The cardiac, mediastinal and hilar silhouettes are within normal limits. Basilar groundglass infiltrates identified. No large pleural effusion or pneumothorax present. Bony structures are intact. XR/XR chest 1V portable IMPRESSION: Basilar groundglass infiltrates. Impression dictated by: Sheldon Khan M.D.07/09/2021 8:33 AM Dictation Location: [place] [address] Transcribed By: [facility] 07/09/21832 Dictated By: Sheldon Khan DO 07/09/21831 Signed By: 07/09/21832 [facility] Cardiovascular Lab Reporton 06-15-2021 Cardiovascular Lab Report [facility] MR #: [id number] Department of Physician: Boo Landers M.D. Division of Service Date: 06/15/2021 Cardiology Birthdate: 1965 Adult Cardiovascular Room #: [place] [address] Cardiovascular Laboratory Report IMPRESSIONS: 1. Mild disease of the left circumflex coronary artery. 2. Otherwise nonobstructive coronary arteries angiographically. 3. Normal global left ventricular systolic function by noninvasive imaging. 4. Mildly elevated right-sided heart pressures and normal pulmonary capillary wedge pressure. 5. Normal cardiac output/cardiac index. 6. Resting hypoxemia. RECOMMENDATIONS: 1. Consider non-cardiac etiologies for the patient's exertional shortness of breath mainly pulmonary and/or hypoxia related. 2. Aggressive cardiovascular risk factor modification. 3. Optimization of medical management; given mild coronary artery disease, aspirin, pkqnehjg-[id number] intensity statin therapy, beta-aleks, and angiotensin-convertin g enzyme inhibitor are indicated. 4. Follow up with Toshia Sam nurse practitioner in the next 2 to 3 months. 5. Follow up with her family physician as scheduled. PROCEDURES: Ultrasound-guided access to the right common femoral vein, ultrasound-guided access to the right common femoral artery, right heart catheterization, bilateral selective coronary angiography, placement of a 6-Venezuelan MynxGrip closure device. METHODS: After risks, benefits, and alternatives were explained, written informed consent was obtained. The patient was prepped and draped in usual sterile fashion over both groins. Using 1% lidocaine solution, local infiltration anesthesia was achieved over the right groin. Using a modified Seldinger technique, a micropuncture kit, and under ultrasound guidance access to the right common femoral vein and artery was obtained. A 6-Venezuelan 11 cm sheath was placed in each. Baseline femoral arterial angiography was performed. A Loera catheter was used for right heart catheterization measuring pressures in the right atrium, right ventricle, pulmonary artery, and pulmonary capillary wedge positions. Oxygen saturations were obtained and cardiac output/cardiac index was calculated using the modified Jimmy principle. The Loera catheter was removed. Bilateral selective coronary angiography was performed using JL4 and JR4 catheters. After reviewing the images, it was elected to conclude the procedure. All catheters were removed. A 6-[place]enezuelan MynxGrip closure device was deployed per protocol achieving optimal hemostasis. Overall, the patient tolerated the procedure well. There were no overt complications. She was to be transferred to the holding area in stable condition. FINDINGS: Hemodynamics: RA 11. RV 36/2, 4. PA 36/4 (18). PCWP 9. TPG 9. AO 104/61. Cardiac output 7.26/cardiac index 3.13. AO sat 91%/PA sat 69%. LEFT VENTRICULOGRAPHY: This was not performed. Ejection fraction is normal by noninvasive imaging. CORONARY ARTERIES: Left main coronary artery: This arises from the left coronary cusp. It bifurcates into the left anterior descending and left circumflex coronary artery. This shows mild plaque distally. Left anterior descending coronary artery: This shows mild luminal irregularities with no significant high-grade stenosis. It is a wrap-around vessel. Left circumflex coronary artery: This shows mild plaque and luminal irregularities. It gives rise to a small branching first obtuse marginal and a large branching second obtuse marginal. The AV groove shows a 30% to 40% stenosis just distal to the second obtuse marginal. Right coronary artery: This is a large dominant vessel giving rise to the posterior descending and posterolateral branches. It shows catheter straightening artifact proximally and a 30% stenosis in the midportion of the vessel. The distal vasculature is of small caliber. Limited femoral angiography shows mild plaque and anatomy suitable for closure device. INDICATIONS: Exertional shortness of breath. Electronically Signed by: Marlene Soto M.D. 06/17/2021 02:18 P Marlene Soto M.D. Date Dict: 06/15/2021/10:44 Adriana/Marlene Soto M.D. Date Trans: 06/15/2021 11:37 A/sofía [id number] cc: Toshia Sam, MSN, CLEANING LABORER-C Department Of Surgery [address] [facility] [id number] Normal [facility] Vital Signs Date Time Vital Sign Value Performing Clinician Jose skinner 09-25-2023 21:50-0500 Diastolic blood pressure 73 mm[Hg] Demond Avni [facility] 09-25-2023 21:50-0500 Heart rate 95 /min Demond Avni [facility] 09-25-2023 21:50-0500 Mean blood pressure 90 mm[Hg] Demond Avni [facility] 09-25-2023 21:50-0500 Respiratory rate 22 /min Demond Avni [facility] 09-25-2023 21:50-0500 SaO2% (BldA) [Mass fraction] 97 % Demond Avni [facility] 09-25-2023 21:50-0500 Systolic blood pressure 123 mm[Hg] Demond Avni [facility] 09-25-2023 20:37-0500 Diastolic blood pressure 77 mm[Hg] Demond Avni [facility] 09-25-2023 20:37-0500 Heart rate 94 /min Demond Avni [facility] 09-25-2023 20:37-0500 Mean blood pressure 99 mm[Hg] Demond Avni [facility] 09-25-2023 20:37-0500 Respiratory rate 18 /min Demond Avni [facility] 09-25-2023 20:37-0500 SaO2% (BldA) [Mass fraction] 97 % Demond Avni [facility] 09-25-2023 20:37-0500 Systolic blood pressure 144 mm[Hg] Demond Avni [facility] 09-25-2023 19:50-0500 Diastolic blood pressure 83 mm[Hg] Demond Avni [facility] 09-25-2023 19:50-0500 Heart rate 100 /min Demond Avni [facility] 09-25-2023 19:50-0500 Mean blood pressure 104 mm[Hg] Demond Avni [facility] 09-25-2023 19:50-0500 Respiratory rate 22 /min Demond Avni [facility] 09-25-2023 19:50-0500 SaO2% (BldA) [Mass fraction] 98 % Demond Avni [facility] 09-25-2023 19:50-0500 Systolic blood pressure 147 mm[Hg] Demond Avni [facility] 09-25-2023 18:23-0500 Body temperature 98.24 [degF] Demond Avni [facility] 09-25-2023 18:23-0500 Heart rate 111 /min Demond Avni [facility] 09-25-2023 18:23-0500 Respiratory rate 24 /min Demond Avni [facility] 09-08-2023 20:26-0500 Body temperature 98.06 [degF] Ramses Reginaldo [facility] 09-08-2023 20:26-0500 Diastolic blood pressure 76 mm[Hg] Ramses Reginaldo [facility] 09-08-2023 20:26-0500 Heart rate 81 /min Ramses Reginaldo [facility] 09-08-2023 20:26-0500 Mean blood pressure 87 mm[Hg] Ramses Reginaldo [facility] 09-08-2023 20:26-0500 Respiratory rate 20 /min Ramses Reginaldo [facility] 09-08-2023 20:26-0500 SaO2% (BldA) [Mass fraction] 99 % Ramses Reginaldo [facility] 09-08-2023 20:26-0500 Systolic blood pressure 110 mm[Hg] Ramses Reginaldo [facility] 09-08-2023 19:28-0500 Diastolic blood pressure 61 mm[Hg] Ramses Reginaldo [facility] 09-08-2023 19:28-0500 Heart rate 86 /min Ramses Reginaldo [facility] 09-08-2023 19:28-0500 Mean blood pressure 82 mm[Hg] Ramses Reginaldo [facility] 09-08-2023 19:28-0500 Respiratory rate 18 /min Ramses Reginaldo [facility] 09-08-2023 19:28-0500 SaO2% (BldA) [Mass fraction] 99 % Ramses Reginaldo [facility] 09-08-2023 19:28-0500 Systolic blood pressure 123 mm[Hg] Ramses Reginaldo [facility] 09-08-2023 18:00-0500 Diastolic blood pressure 75 mm[Hg] Ramses Hair [facility] 09-08-2023 18:00-0500 Heart rate 92 /min Ramses Hair [facility] 09-08-2023 18:00-0500 SaO2% (BldA) [Mass fraction] 91 % Ramses Hair [facility] 09-08-2023 18:00-0500 Systolic blood pressure 124 mm[Hg] Ramses Hair [facility] 09-08-2023 16:33-0500 Body temperature 98.24 [degF] Ramses Hair [facility] 09-08-2023 16:33-0500 Heart rate 104 /min Ramses Hair [facility] 09-08-2023 16:33-0500 Respiratory rate 24 /min Ramses Hair [facility] 07-19-2023 09:00-0400 Blood Pressure Location Mhd Al-Marrawi [facility] 07-19-2023 09:00-0400 Body temperature 98.06 [degF] Mhd Al-Marrawi [facility] 07-19-2023 09:00-0400 Diastolic blood pressure 72 mm[Hg] Mhd Al-Marrawi [facility] 07-19-2023 09:00-0400 Heart rate 79 /min Mhd Al-Marrawi [facility] 07-19-2023 09:00-0400 Mean blood pressure 88 mm[Hg] Mhd Al-Marrawi [facility] 07-19-2023 09:00-0400 Respiratory rate 18 /min Mhd Al-Codiems [facility] 07-19-2023 09:00-0400 SaO2% (BldA) [Mass fraction] 93 % [facility] 07-19-2023 09:00-0400 Systolic blood pressure 120 mm[Hg] [facility] Edonur [facility] 06-28-2023 10:00-0400 Blood Pressure [facility]-28-2023 10:00-0400 Body temperature 98.06 [degF] [facility]-28-2023 10:00-0400 Diastolic blood pressure 69 mm[Hg] [facility] 06-28-2023 10:00-0400 Heart rate 101 /min [facility] 06-28-2023 10:00-0400 Mean blood pressure 90 mm[Hg] [facility]-28-2023 10:00-0400 Respiratory rate 16 /min Ezekiel Christian [facility] 06-28-2023 10:00-0400 SaO2% (BldA) [Mass fraction] 92 % [facility] 06-28-2023 10:00-0400 Systolic blood pressure 133 mm[Hg] [facility] 06-17-2023 17:06-0400 Hourly Rounding Mbanefo OJUKWU [facility] 06-17-2023 17:06-0400 Promise to Return Mbanefo OJUKWU [facility] 06-17-2023 16:00-0400 Hourly Rounding Mbanefo OJUKWU [facility] 06-17-2023 16:00-0400 Promise to Return Mbanefo OJUKWU [facility] 06-17-2023 15:42-0400 Heart rate 82 /min Mbanefo OJUKWU [facility] 06-17-2023 15:42-0400 SaO2% (BldA) [Mass fraction] 95 % Mbanefo OJUKWU [facility] 06-17-2023 15:42-0400 Diastolic blood pressure 64 mm[Hg] Mbanefo OJUKWU [facility] 06-17-2023 15:42-0400 Mean blood pressure 79 mm[Hg] Mbanefo OJUKWU [facility] 06-17-2023 15:42-0400 Systolic blood pressure 109 mm[Hg] Mbanefo OJUKWU [facility] 06-17-2023 15:41-0400 Body temperature 97.88 [degF] Mbanefo OJUKWU [facility] 06-17-2023 15:05-0400 Hourly Rounding Mbanefo OJUKWU [facility] 06-17-2023 15:05-0400 Promise to Return Mbanefo OJUKWU [facility] 06-17-2023 14:00-0400 SaO2% (BldA) [Mass fraction] 96 % Mbanefo OJUKWU [facility] 06-17-2023 12:53-0400 Heart rate 87 /min Mbanefo OJUKWU [facility] 06-17-2023 12:53-0400 Respiratory rate 18 /min Mbanefo OJUKWU [facility] 06-17-2023 12:48-0400 SaO2% (BldA) [Mass fraction] 95 % Mbanefo OJUKWU [facility] 06-17-2023 12:44-0400 Heart rate 86 /min Mbanefo OJUKWU [facility] 06-17-2023 12:44-0400 Respiratory rate 18 /min Mbanefo OJUKWU [facility] 06-17-2023 12:00-0400 Diastolic blood pressure 66 mm[Hg] Mbanefo OJUKWU [facility] 06-17-2023 12:00-0400 Mean blood pressure 86 mm[Hg] Mbanefo OJUKWU [facility] 06-17-2023 12:00-0400 Systolic blood pressure 125 mm[Hg] Mbanefo OJUKWU [facility] 06-17-2023 09:19-0400 Diastolic blood pressure 71 mm[Hg] Mbanefo OJUKWU [facility] 06-17-2023 09:19-0400 Systolic blood pressure 134 mm[Hg] Mbanefo OJUKWU [facility] 06-17-2023 09:16-0400 gluc 173 mg/dL Mbanefo OJUKWU [facility] 06-17-2023 07:33-0400 Mean blood pressure 90 mm[Hg] Mbanefo OJUKWU [facility] 06-17-2023 07:33-0400 Body temperature 97.88 [degF] Mbanefo OJUKWU [facility] 06-17-2023 04:00-0400 Blood Pressure Location Mbanefo OJUKWU [facility] 06-17-2023 04:00-0400 Body temperature 98.24 [degF] Mbanefo OJUKWU [facility] 06-17-2023 04:00-0400 Mean blood pressure 91 mm[Hg] Mbanefo OJUKWU [facility] 06-17-2023 00:00-0400 Body temperature 97.88 [degF] Mbanefo OJUKWU [facility] 06-16-2023 22:48-0400 Blood Pressure Location Mbanefo OJUKWU [facility] 06-16-2023 22:48-0400 Body temperature 98.24 [degF] Mbanefo OJUKWU [facility] 06-16-2023 22:48-0400 Heart rate 80 /min Mbanefo OJUKWU [facility] 06-16-2023 21:42-0400 Mean blood pressure 76 mm[Hg] Mbanefo OJUKWU [facility] 06-16-2023 21:42-0400 Respiratory rate 18 /min Mbanefo OJUKWU [facility] 06-16-2023 20:45-0400 Mean blood pressure 95 mm[Hg] Mbanefo OJUKWU [facility] 06-16-2023 20:45-0400 Respiratory rate 18 /min Mbanefo OJUKWU [facility] 06-16-2023 19:39-0400 Respiratory rate 18 /min Mbanefo OJUKWU [facility] 06-16-2023 15:51-0400 Heart rate 107 /[facility] 06-16-2023 15:51-0400 Respiratory rate 22 /min [facility] OBECCAKWU [facility] Encounters Encounter Date Encounter Type Care Provider Facility Start: 09-25-2023 End: 09-25-2023 Emergency department patient visit Moses SarmientoLakia Aaliyah Facility:[facility] Start: 09-25-2023 End: 09-25-2023 Emergency department patient visit Demond Holly [facility] Start: 09-08-2023 End: 09-08-2023 Emergency department patient visit Ramses Hair Facility:[facility] Start: 09-08-2023 End: 09-08-2023 Emergency department patient visit Ramses Hair [facility] Start: 07-20-2023 End: 07-20-2023 ambulatory EHAB [facility] Start: 07-19-2023 End: 07-20-2023 ambulatory Mhd Yaser Al-Marrawi Facility:[facility] Start: 07-19-2023 End: 07-19-2023 Patient encounter procedure Mhd Yaser Al-Marrawi [facility] Start: 06-28-2023 End: 06-29-2023 ambulatory Mhd Yaser Al-Marrawi Facility:[facility] Start: 06-28-2023 End: 06-29-2023 ambulatory Mhd Yaser Al-Marrawi Facility:[facility] Start: 06-28-2023 End: 06-28-2023 Patient encounter procedure Ezekiel Christian [facility] Start: 06-16-2023 End: 06-17-2023 ambulatory Alex DESOUZAWU Facility:[facility] Start: 06-16-2023 End: 06-17-2023 Observation Alex BARRIENTOS [facility] Start: 02-23-2023 End: 02-23-[address] SHELDON CARVAJAL . Facility:[facility] Start: 02-01-2023 End: 02-02-2023 ambulatory CORRINA GAINES . Facility:[facility] Start: 01-12-2023 End: 01-13-2023 ambulatory STRIP[employer] AICHHOLZ Facility:[facility] Start: 01-03-2023 End: 01-04-2023 ambulatory STRIP[employer] SO[employer] P[employer] LINK AICHHOLZ Facility:[facility] Start: 12-24-2022 End: 12-24-2022 ambulatory TOSHIA SAM [facility] Start: 11-04-2022 End: 11-05-2022 ambulatory STRIPPER SOFT PLASTIC LINK AICHHOLZ Facility:[facility] Start: 07-28-2022 End: 07-29-2022 ambulatory STRIPPER SO[employer] PLAST[employer] LINK AICHHOLZ Facility:[facility] Start: 04-30-2022 End: 05-01-2022 ambulatory STRIPPER SOFT PLASTIC LINK AICHHOLZ Facility:[facility] Start: 03-26-2022 End: 03-26-2022 ambulatory STRIPPER SOFT PLASTIC LINK AICHHOLZ Facility:[facility] Start: 06-15-2021 End: 06-16-2021 ambulatory TOSHIA SAM Facility:[facility] Procedures Date Procedure Procedure Detail Performing Clinician Start: 05-05-1987 section Elijah Christian Start: 06-20-1984 section Elijah Christian Cyst (disorder) Ezekiel solorzano Comment on above: Removal of cyst of r ight foot. Knee region structur e (body structure) Ezekiel Christian Comment on above: surgery Payers Date Payer Category Payer Unknown [id number] 2.16.8 [id number] 1964 Unknown [id number] 2.16.84 [id number] 1964 Unknown [id number] 2.16.84 [id number] 1964 Unknown [id number] 2.16.84 [id number] 1964 Unknown [id number] 2.16.84 [id number] 1964 Unknown [id number] 2.16.84 [id number] 1964 Unknown [id number] 2.16.84 [id number] 1964 Unknown [id number] 2.16.84 [id number] 1964 Unknown [id number] 2.16.84 [id number] 1964 Unknown [id number] 2.16.8 [id number] 1964 Unknown [id number] 2.16.8 [id number] 1964 Unknown [id number] 2.16.8 [id number] 1964 Unknown [id number] 2.16.8 [id number] 1964 Unknown [id number] 2.16.8 [id number] 1964 Unknown [id number] 2.16.8 [id number] 1959 Unknown [id number] Social History Date Type Detail Facility Tobacco [facility] Comment on above: 1/2 pack a day Tobacco smoking status No Smokin g Status Entered [facility] Sex Assigned At Female [facility] Start: 06-28-2023 Tobacco smoking status Ex-smoker (fi nding) [facility] Comment on above: Quit 8/20/23 1/2 pack a day Functional Status Date Assessment Result Facility 09-25-2023 Functional Status N/A [facility] 09-08-2023 Functional Status N/A [facility] 06-16-2023 Functional Status N/A [facility] 06-16-2023 Functional Status [facility] Clinical Notes 12-24-2022 to 09-25-2023 Note Date & Type Note Facility 09-25-2023 Hospital Discharg e instructions Patient Education 09/25/2023 21:57:45 Cholelithiasis Cholelithiasis Cholelithiasis is a disease in which gallstones form in the gallbladder. The gallbladder is an organ that stores bile. Bile is a fluid that helps to digest fats. Gallstones begin as small crystals and can slowly grow into stones. They may cause no symptoms until they block the gallbladder duct, or cystic duct, when the gallbladder tightens (contracts) after food is eaten. This can cause pain and is known as a gallbladder attack, or biliary colic. There are two main types of gallstones: Cholesterol stones. These are the most common type of gallstone. These stones are made of hardened cholesterol and are usually yellow-green in color. Cholesterol is a fat-like substance that is made in the liver. Pigment stones. These are dark in color and are made of a red-yellow substance, called bilirubin,that forms when hemoglobin from red blood cells breaks down. What are the causes? This condition may be caused by an imbalance in the different parts that make bile. This can happen if the bile: Has too much bilirubin. This can happen in certain blood diseases, such as sickle cell anemia. Has too much cholesterol. Does not have enough bile salts. These salts help the body absorb and digest fats. In some cases, this condition can also be caused by the gallbladder not emptying completely or often enough. This is common during . What increases the risk? The following factors may make you more likely to develop this condition: Being female. Having multiple pregnancies. Health care providers sometimes advise removing diseased gallbladders before future pregnancies. Eating a diet that is heavy in fried foods, fat, and refined carbohydrates, such as white bread and white rice. Being obese. Being older than age 40. Using medicines that contain female hormones (estrogen) for a long time. Losing weight quickly. Having a family history of gallstones. Having certain medical problems, such as: ?Diabetes mellitus. ?Cystic fibrosis. ?Crohn's disease. ?Cirrhosis or other long-term (chronic) liver disease. ?Certain blood diseases, such as sickle cell anemia or leukemia. What are the signs or symptoms? In many cases, having gallstones causes no symptoms. When you have gallstones but do not have symptoms, you have silent gallstones. If a gallstone blocks your bile duct, it can cause a gallbladder attack. The main symptom of a gallbladder attack is sudden pain in the upper right part of the abdomen. The pain: Usually comes at night or after eating. Can last for one hour or more. Can spread to your right shoulder, back, or chest. Can feel like indigestion. This is discomfort, burning, or fullness in your upper abdomen. If the bile duct is blocked for more than a few hours, it can cause an infection or inflammation of your gallbladder (cholecystitis), liver, or pancreas. This can cause: Nausea or vomiting. Bloating. Pain in your abdomen that lasts for 5 hours or longer. Tenderness in your upper abdomen, often in the upper right section and under your rib cage. Fever or chills. Skin or the white parts of your eyes turning yellow (jaundice). This usually happens when a stone has blocked bile from passing through the common bile duct. Dark urine or light-colored stools. How is this diagnosed? This condition may be diagnosed based on: A physical exam. Your medical history. Ultrasound. CT scan. MRI. You may also have other tests, including: Blood tests to check for signs of an infection or inflammation. Cholescintigraphy, or HIDA scan. This is a scan of your gallbladder and bile ducts (biliary system) using non-harmful radioactive material and special cameras that can see the radioactive material. Endoscopic retrograde cholangiopancreatogram. This involves inserting a small tube with a camera on the end (endoscope) through your mouth to look at bile ducts and check for blockages. How is this treated? Treatment for this condition depends on the severity of the condition. Silent gallstones do not need treatment. Treatment may be needed if a blockage causes a gallbladder attack or other symptoms. Treatment may include: Home care, if symptoms are not severe. ?During a simple gallbladder attack, stop eating and drinking for 12 24 hours (except for water and clear liquids). This helps to cool down your gallbladder. After 1 or 2 days, you can start to eat a diet of simple or clear foods, such as broths and crackers. ?You may also need medicines for pain or nausea or both. ?If you have cholecystitis and an infection, you will need antibiotics. A hospital stay, if needed for pain control or for cholecystitis with severe infection. Cholecystectomy, or surgery to remove your gallbladder. This is the most common treatment if all other treatments have not worked. Medicines to break up gallstones. These are most effective at treating small gallstones. Medicines may be used for up to 6 12 months. Endoscopic retrograde cholangiopancreatogram. A small basket can be attached to the endoscope and used to capture and remove gallstones, mainly those that are in the common bile duct. Follow these instructions at home: Medicines Take ifbz-prn-gyexdmm and prescription medicines only as told by your health care provider. If you were prescribed an antibiotic medicine, take it as told by your health care provider. Do not stop taking the antibiotic even if you start to feel better. Ask your health care provider if the medicine prescribed to you requires you to avoid driving or using machinery. Eating and drinking Drink enough fluid to keep your urine pale yellow. This is important during a gallbladder attack. Water and clear liquids are preferred. Follow a healthy diet. This includes: ?Reducing fatty foods, such as fried food and foods high in cholesterol. ?Reducing refined carbohydrates, such as white bread and white rice. ?Eating more fiber. Aim for foods such as almonds, fruit, and beans. Alcohol use If you drink alcohol: ?Limit how much you use to: ?0 1 drink a day for non women. ?0 2 drinks a day for men. ?Be aware of how much alcohol is in your drink. In the [place] one drink equals one 12 oz bottle of beer (355 mL), one 5 oz glass of wine (148 mL), or one 1 oz glass of hard liquor (44 mL). General instructions Do not use any products that contain nicotine or tobacco, such as cigarettes, e-cigarettes, and chewing tobacco. If you need help quitting, ask your health care provider. Maintain a healthy weight. Keep all follow-up visits as told by your health care provider. These may include consultations with a surgeon or specialist. This is important. Where to find more information National [place] of Diabetes and Digestive and Kidney Diseases: www.niddk.nih.gov Contact a health care provider if: You think you have had a gallbladder attack. You have been diagnosed with silent gallstones and you develop pain in your abdomen or indigestion. You begin to have attacks more often. You have dark urine or light-colored stools. Get help right away if: You have pain from a gallbladder attack that lasts for more than 2 hours. You have pain in your abdomen that lasts for more than 5 hours or is getting worse. You have a fever or chills. You have nausea and vomiting that do not go away. You develop jaundice. Summary Cholelithiasis is a disease in which gallstones form in the gallbladder. This condition may be caused by an imbalance in the different parts that make bile. This can happen if your bile has too much bilirubin or cholesterol, or does not have enough bile salts. Treatment for gallstones depends on the severity of the condition. Silent gallstones do not need treatment. If gallstones cause a gallbladder attack or other symptoms, treatment usually involves not eating or drinking anything. Treatment may also include pain medicines and antibiotics, and it sometimes includes a hospital stay. Surgery to remove the gallbladder is common if all other treatments have not worked. This information is not intended to replace advice given to you by your health care provider. Make sure you discuss any questions you have with your health care provider. Document Revised: 09/08/2020 Document Reviewed: 09/08/2020 Copytele Patient Education 2022 VideoNot.[email or web address]. Follow Up Care 09/25/2023 18:11:16 With:[facility] Address: [address] [place] [address] 3, [address] Floor, [address] [place] [address]- [phone] Business (1) When:09/28/2023 21:47:26 With:LINK HAMEED Address: [address] [place] [address] [phone] Business (1) When:Within 3 Day(s) [facility] 09-25-2023 Evaluation + Plan note Extrac aura from: Title:ED Note Author:Moses Fischer DO Date :09/25/23 AP (abdominal pain) (R10.9: Unspecified abdominal pain) Cholelithiasis (K80.20: Calculus of gallbladder without cholecystitis without obstruction) N&V (nausea and vomiting) (R11.2: Nausea with vomiting, unspecified) Orders: dicyclomine, 10 mg = 1 cap(s), Oral, QID, X 7 day(s), # 28 cap(s), Refills(s) 0, Pharmacy: [id number], 175, cm, 09/25/23 18:25:00 EST, Height/Length Dosing, 121, kg, 09/25/23 18:25:00 EST, Weight Dosing morphine, 4 mg = 1 mL, Injection, IV Push, Once, Stop date 09/25/23 19:34:00 EST, STAT, Start date 09/25/23 19:34:00 EST, 09/25/23 19:34:00 EST ondansetron, 4 mg = 2 mL, Injection, IV Push, Once, Stop date 09/25/23 19:33:00 EST, STAT, Start date 09/25/23 19:33:00 EST, 09/25/23 19:33:00 EST ondansetron, 4 mg = 1 tab(s), Oral, q8hr, # 12 tab(s), Refills(s) 0, Pharmacy: [id number], 175, cm, 09/25/23 18:25:00 EST, Height/Length Dosing, 121, kg, 09/25/23 18:25:00 EST, Weight Dosing Sodium Chloride 0.9% intravenous solution 500 mL, 500 mL, IV, 500 mL/hr, STAT, Start date 09/25/23 19:49:00 EST, 1 hour(s), Total volume (mL): 500, Bolus Dose: 500 mL, 121 kg, 2.43, m2 CT Abdomen/Pelvis w/ Contrast Future Appointments Appointment Date:01/16/2024 09:00:00 AM Scheduled Provider: Location:[facility]ONCOLOGY Appointment Type:ONC Office Visit 30 (FT) Future Scheduled Tests Laboratory* CBC w/ Auto Diff 12/27/23 * Comprehensive Metabolic Panel 12/27/23 * D-Dimer 12/27/23 [facility]11-09-2023 Hospital Discharge instructions Patient Education 09/08/2023 20:29:12 Nonspecific Chest Pain, Adult Nonspecific Chest Pain, Adult Chest pain is an uncomfortable, tight, or painful feeling in the chest. The pain can feel like a crushing, aching, or squeezing pressure. A person can feel a burning or tingling sensation. Chest paincan also be felt in your back, neck, jaw, shoulder, or arm. This pain can be worse when you move, sneeze, or take a deep breath. Chest pain can be caused by a condition that is life-threatening. This must be treated right away. It can also be caused by something that is not life- threatening. If you have chest pain, it can be hard to know the difference, so it is important to get help right away to make sure that you do not have a serious condition. Some life-threatening causes of chest pain include: Heart attack. A tear in the body's main blood vessel (aortic dissection). Inflammation around your heart (pericarditis). A problem in the lungs, such as a blood clot (pulmonary embolism) or a collapsed lung (pneumothorax). Some non life-threatening causes of chest pain include: Heartburn. Anxiety or stress. Damage to the bones, muscles, and cartilage that make up your chest wall. Pneumonia or bronchitis. Shingles infection (varicella-zoster virus). Your chest pain may come and go. It may also be constant. Your health care provider will do tests and other studies to find the cause of your pain. Treatment will depend on the cause of your chest pain. Follow these instructions at home: Medicines Take cmmv-eal-jokdofm and prescription medicines only as told by your health care provider. If you were prescribed an antibiotic medicine, take it as told by your health care provider. Do notstop taking the antibiotic even if you start to feel better. Activity Avoid any activities that cause chest pain. Do not lift anything that is heavier than 10 lb (4.5 kg), or the limit that you are told, until your health care provider says that it is safe. Rest as directed by your health care provider. Return to your normal activities only as told by your health care provider. Ask your health care provider what activities are safe for you. Lifestyle Do not use any products that contain nicotine or tobacco, such as cigarettes, e- cigarettes, and chewing tobacco. If you need help quitting, ask your health care provider. Do not drink alcohol. Make healthy lifestyle changes as recommended. These may include: ?Getting regular exercise. Ask your health care provider to suggest some exercises that are safe for you. ?Eating a heart-healthy diet. This includes plenty of fresh fruits and vegetables, whole grains, low-fat (lean) protein, and low-fat dairy products. A dietitian can help you find healthy eating options. ?Maintaining a healthy weight. ?Managing any other health conditions you may have, such as high blood pressure (hypertension) or diabetes. ?Reducing stress, such as with yoga or relaxation techniques. General instructions Pay attention to any changes in your symptoms. It is up to you to get the results of any tests that were done. Ask your health care provider, or the department that is doing the tests, when your results will be ready. Keep all follow-up visits as told by your health care provider. This is important. You may be asked to go for further testing if your chest pain does not go away. Contact a health care provider if: Your chest pain does not go away. You feel depressed. You have a fever. You notice changes in your symptoms or develop new symptoms. Get help right away if: Your chest pain gets worse. You have a cough that gets worse, or you cough up blood. You have severe pain in your abdomen. You faint. You have sudden, unexplained chest discomfort. You have sudden, unexplained discomfort in your arms, back, neck, or jaw. You have shortness of breath at any time. You suddenly start to sweat, or your skin gets clammy. You feel nausea or you vomit. You suddenly feel lightheaded or dizzy. You have severe weakness, or unexplained weakness or fatigue. Your heart begins to beat quickly, or it feels like it is skipping beats. These symptoms may represent a serious problem that is an emergency. Do not wait to see if the symptoms will go away. Get medical help right away. Call your local emergency services (911 in the [place] Do not drive yourself to the hospital. Summary Chest pain can be caused by a condition that is serious and requires urgent treatment. It may also be caused by something that is not life-threatening. Your health care provider may do lab tests and other studies to find the cause of your pain. Follow your health care provider's instructions on taking medicines, making lifestyle changes, and getting emergency treatment if symptoms become worse. Keep all follow-up visits as told by your health care provider. This includes visits for any further testing if your chest pain does not go away. This information is not intended to replace advice given to you by your health care provider. Make sure you discuss any questions you have with your health care provider. Document Revised: 12/31/2021 Document Reviewed: 12/31/2021 Copytele Patient Education 2022 [email or web address]. Follow Up Care 09/08/2023 16:32:40 With:LINK HAMEED Address: [address] [place] [address] [phone] Business (1) When:Within 3 Day(s) [facility]11-09-2023 Evaluation + Plan noteExtracted from: Title:ED Note Author:Ramses Hair DO Date:11/08/22 Acute chest pain (R07.9: [place] st pain, unspecified) Orders: Automated Diff B-Type Natriuretic Peptide Basic Metabolic Panel CBC w/ Auto Diff CTA Chest ED Cardiac Monitoring eGFR Hepatic Function Panel Oxygen Saturation Oxygen Therapy PT & PTT Saline Lock Insert Troponin 0 Hr. Troponin 3 Hr. Troponin 6 Hr. Troponin 9 Hr. Future Appointments Appointment Date:01/16/2024 09:00:00 AM Scheduled Provider: Location:[facility]ONCOLOGY Appointment Type:ONC Office Visit 30 (FT) Future Scheduled Tests Laboratory* CBC w/ Auto Diff 12/27/23 * Comprehensive Metabolic Panel 12/27/23 * D-Dimer 12/27/23 [facility] Chief Complaint: Patient here for 6 mo follow up hypertension and coronary-myocardial bridge. Says she was admitted to [facility] in [place] for chest pain. Says she was diagnosed with PE. Following with [employer] [employer] now and was started on Eliquis. She is feeling much better and chest pain has resolved. HPI: Sis Moore is a 57 y.o. female Patient here for 6 mo follow up hypertension and myocardial bridge of coronary artery. Doing well; has chronic shortness of breath. Denies chest pain. Cardiology ROS: Review of Systems Cardiovascular: Positive for dyspnea on exertion. Respiratory: Positive for cough and shortness of breath. Musculoskeletal: Positive for arthritis, back pain and joint pain. Neurological: Positive for headaches. All other systems reviewed and are negative. Past Medical History She has a past medical history of COPD (chronic obstructive pulmonary disease) ([facility]), Diabetes mellitus ([facility]), Hyperlipidemia, Hypertension, and Sleep apnea. Surgical History She has a past surgical history that includes Cardiac catheterization; Knee surgery; and section, classic. Social History She reports that she quit smoking about 2 years ago. Her smoking use included cigarettes. She has never used smokeless tobacco. She reports that she does not currently use alcohol. No history on file for drug use. Family History Family History Problem Relation Name Age of Onset Coronary artery disease Other Pulmonary embolism Other Deep vein thrombosis Other Allergies Patient has no known allergies. Medications Current Outpatient Medications: albuterol 90 mcg/actuation inhaler, Ventolin HFA 90 mcg/actuation aerosol inhaler INHALE 2 PUFFS EVERY 4 HOURS NEEDED FOR SHORTNESS OF BREATH, Disp: , Rfl: ALPRAZolam (Xanax) 0.25 mg tablet, alprazolam 0.25 mg tablet TAKE ONE TABLET BY MOUTH DAILY NEEDED FOR ACUTE ANXIETY, Disp: , Rfl: aspirin 81 mg EC tablet, aspirin 81 mg tablet,delayed release TAKE 1 TABLET BY MOUTH DAILY, Disp: , Rfl: atorvastatin (Lipitor) 40 mg tablet, atorvastatin 40 mg tablet TAKE ONE TABLET BY MOUTH DAILY, Disp: , Rfl: busPIRone (Buspar) 15 mg tablet, Take 15 mg by mouth in the morning and at bedtime., Disp: , Rfl: celecoxib (CeleBREX) 200 mg capsule, celecoxib 200 mg capsule TAKE ONE CAPSULE BY MOUTH ONCE DAILY, Disp: , Rfl: DULoxetine (Cymbalta) [address] capsule, duloxetine 60 mg capsule,delayed release TAKE ONE CAPSULE BY MOUTH ONCE DAILY, Disp: , Rfl: fluticasone (Flovent) 110 mcg/actuation inhaler, Flovent HFA 110 mcg/actuation aerosol inhaler INHALE 2 PUFFS TWICE A DAY -RINSE MOUTH AFTER USE, Disp: , Rfl: furosemide (Lasix) 20 mg tablet, TAKE ONE TABLET BY MOUTH DAILY, Disp: 90 tablet, Rfl: 0 gabapentin (Neurontin) 300 mg capsule, gabapentin 300 mg capsule TAKE ONE CAPSULE BY MOUTH DAILY AT 5PM, Disp: , Rfl: glycopyrrolate-formoteroL (Bevespi Aerosphere) 9-4.8 mcg HFA aerosol inhaler, Bevespi Aerosphere 9 mcg-4.8 mcg HFA aerosol inhaler INHALE 2 PUFFS TWICE A DAY, Disp: , Rfl: lamoTRIgine (LaMICtal) 25 mg tablet, TAKE TWO TABLETS BY MOUTH ONCE DAILY AT BEDTIME, Disp: , Rfl: lisinopriL-hydrochlorothiazide 20-25 mg tablet, lisinopril 20 mg-hydrochlorothiazide 25 mg tablet TAKE ONE TABLET BY MOUTH DAILY, Disp: , Rfl: pioglitazone (Actos) 15 mg tablet, pioglitazone 15 mg tablet TAKE ONE TABLET BY MOUTH ONCE DAILY, Disp: , Rfl: potassium chloride CR (Klor-Con) 10 mEq ER tablet, TAKE ONE TABLET BY MOUTH DAILY, Disp: 90 tablet, Rfl: 0 sucralfate (Carafate) 1 gram tablet, sucralfate 1 gram tablet TAKE ONE TABLET BY MOUTH ON AN EMPTY STOMACH THREE TIMES A DAY FOR 30 DAYS, Disp: , Rfl: theophylline ER (Uniphyl) 400 mg 24 hr tablet, theophylline ER 400 mg tablet,extended release 24 hr TAKE ONE TABLET BY MOUTH TWICE A DAY, Disp: , Rfl: traZODone (Desyrel) 50 mg tablet, trazodone 50 mg tablet TAKE TWO TABLETS BY MOUTH DAILY AT BEDTIME, Disp: , Rfl: Last Recorded Vitals BP 108/60 (BP Location: Left arm, Patient Position: Sitting) Pulse 100 Ht 1.753 m (5' 9 ) Wt 119 kg (263 lb) SpO2 92% BMI 38.84 kg/m??? Physical Examination: GENERAL: alert and oriented x3, well developed, in no acute distress. HEAD: atraumatic, normocephalic. EYES: PAULINE, EOMI. NECK: trachea midline, no JVD present, no carotid bruits present. CARDIAC: S1, S2 present. RRR. No murmur, rubs, or gallops. RESPIRATORY: CTAB, no increased effort of breathing, no rales, rhonchi, or wheezing. ABDOMEN: soft, nontender, nondistended. EXTREMITIES: no lower extremity edema, peripheral pulses are 2+ bilaterally. No rash/skin discoloration present. NEURO: strength/sensation equal and symmetric in bilateral upper and lower extremities. PSYCH: appropriate mood, affect, and judgement. Assessment: Myocardial bridge of the coronary artery Essential hypertension Bilateral lower extremity edema History of pu (more content not included)...[facility] 06-28-2023 Hospital Discharge instructions Follow Up Care 06/28/2023 11:35:56 With:Roby Bob Address: [facility] [address] [place] [phone] Business (1) When: Unknown Comments:Continue ELiquis for 6 months total.D dimer, CBCD and CMP end of December 2023.RTC end of December,sooner if new SOB or CP or Leg pain or swelling or bleeding. [facility]08-18-2023 NoteEchocardiology Procedure Exam Date/Time Accession # Ordering Echo Transthoracic 06/17/2023 15:26 EDT [id number] JANETTE BOOTHE, Alex Complete CPT code 28547 [id number] Reason for Exam (Echo Transthoracic Complete) Acute pulmonary embolism;Other (please specify) Report [address] [address] Adult Echocardiogram Report Name: SIS MOORE Study Date: 06/17/2023 02:55 PM BP: 132/70 mmHg Patient Location: [facility] [place] [address] HR: 85 : 1965 Gender: Female Age: 57 yrs Ethnicity: [facility] Weight: 251 lb Reason For Study: Other (please specify) History: Diabetes,Smoker-Yes,COPD,Obesity Ordering Physician: Kari Performed By: Parul Ochoa RDCS Interpretation Summary No comparison study is available. Ejection Fraction = 60-65%. The left ventricular wall motion is normal. Diastolic dysfunction, Grade II (pseudonormalization pattern). There is Trace mitral regurgitation. There is trace tricuspid regurgitation. Right ventricular systolic pressure is 24 mmHg. Procedure A complete two-dimensional transthoracic echocardiogram was performed (2D, M- mode, spectral and color flow Doppler). Study quality is good. I WMSI = 1.00 % Normal = 100 Segments Size 1-2 small X - Cannot 1 - Normal 2 - 3 - Akinetic 4 - Dyskinetic3-5 moderate Interpret Hypokinetic 6-14 large 5 - Aneurysmal 15-16 diffuse Left Ventricle The left ventricle is normal in size. There is normal left ventricular wall thickness. Ejection Fraction = 60-65%. The Echocardiology Report left ventricular wall motion is normal. Diastolic dysfunction, Grade II (pseudonormalization pattern). Left Atrium The left atrial size is normal. Right Atrium Right atrial size is normal. Right Ventricle The right ventricular systolic function is normal. Aortic Valve The aortic valve is trileaflet. Mitral Valve Mitral valve structure is normal. There is Trace mitral regurgitation. Tricuspid Valve Structurally normal tricuspid valve. There is trace tricuspid regurgitation. Right ventricular systolic pressure is 24 mmHg. Pulmonic Valve The pulmonic valve is normal. Arteries The aortic root is normal in size. Venous The inferior vena cava is normal in size, and collapses normally with respiration. Effusion There is no pericardial effusion. MMode/2D Measurements & Calculations RVDd: 3.1 cm LVIDd: 5.4 cm FS: 39.4 % Ao root diam: 2.8 cm IVSd: 1.3 cm LVIDs: 3.3 cm EDV(Teich): 140.6 ml Ao root area: 6.2 cm2 LVPWd: 1.2 cm ESV(Teich): 43.0 ml LA dimension: 3.7 cm EF(Teich): 69.4 % LVLd ap4: 8.5 cm EDV(MOD-sp2): 91.4 ml SV(MOD-sp4): 68.5 ml TAPSE: 3.0 cm EDV(MOD-sp4): 106.0 ml ESV(MOD-sp2): 35.4 ml LVLs ap4: 6.4 cm EF(MOD-sp2): 61.3 % ESV(MOD-sp4): 37.5 ml EF(MOD-sp4): 64.6 % IVC Diam: 2.2 cm RVIDd/LVIDd: 0.58 EF (MOD-bp): 62.6 % Doppler Measurements & Calculations MV E max surinder: 72.2 cm/sec MV dec time: 0.25 sec Ao V2 max: 150.5 cm/sec LV V1 max P.3 mmHg MV A max surinder: 63.2 cm/sec Ao max P.1 mmHg LV V1 max: 115.3 cm/sec MV E/A: 1.1 Lat Peak E' Surinder: 7.0 cm/sec Echocardiology Report E/E' Lat: 10.4 Med Peak E' Surinder: 6.4 cm/sec E/E' Med: 11.2 TR max surinder: 202.4 cm/sec RAP systole: 8.0 mmHg AV VR: 0.77 TR max P.4 mmHg RVSP(TR): 24.4 mmHg FINAL REPORT Dictated: 06/17/2023 2:55 pm Satinder RODNEY MD Signed (Electronic Signature): 06/17/2023 3:36 pm Signed by: Satinder RODNEY MD Transcribed by: SENTHIL Technologist: [facility]08-18-2023 Note Admission and Discharge Information Admitting Physician - Alex BARRIENTOS MD Admitting Diagnoses: Discharge Order Date Discharge Patient - Ordered -- 06/17/23 14:02:00 EDT, Home after ECHO Discharge Diagnoses 1. Chest pain, 06/16/2023 2. Acute pulmonary embolism, 06/16/2023 3. Sinus tachycardia, 06/16/2023 4. COPD without exacerbation, 06/16/2023 5. Hypertension, 06/16/2023 6. Diabetes mellitus, 06/16/2023 7. Depression, 06/16/2023 8. Chronic hypoxemic respiratory failure, 06/16/2023 9. Obese, 06/16/2023 10. Smoker, 06/16/2023 11. On deep vein thrombosis (DVT) prophylaxis, 06/16/2023 Chest pain, 06/16/2023 Hospital Course 57-year-old female cigarette smoker with history of hypertension, wdv-gbnjchb-nhrijtkog diabetes mellitus type 2, obesity, chronic hypoxic respiratory failure on 3 L home oxygen, depressionpresented with complaints of right-sided chest pain. She was subsequently admitted to [facility] with chest pain secondary to acute right-sided subsegmental pulmonary embolism. Acutecoronary syndrome was ruled out with negative serial cardiac enzymes. She was started on Eliquis 10mg twice daily x7 days then Eliquis 5 mg twice daily thereafter. A DVT study of the lower extremitywas performed and was negative. Echocardiogram was also ordered. Patient's overall condition improved by the next day and she was anxious to be discharged home. She was seen prior to discharge and remained in an improved and stable condition for discharge and was subsequently discharged home. She has been advised to avoid taking NSAIDs. Celebrex was discontinued. 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 Significant Findings (06/16/2023 19:59 EDT US LE Venous Duplex Bilateral) * Final Report * Reason For Exam Acute pulmonary embolism;Elevated D-Dimer POWERSCRIBE REPORT IMPRESSION: NO DVT OF EITHER LOWER EXTREMITY IDENTIFIED. EXAM: US LE Venous Duplex Bilateral DATE: 06/16/2023 CLINICAL HISTORY: Elevated D-Dimer, Acute pulmonary embolism. COMPARISON: Chest CTA 06/16/2023. [1] Physical Exam Vitals & Measurements T: 36.6 ?C(Axillary) TMIN: 36.6 ?C(Axillary) TMAX: 36.8 ?C(Oral) HR: 87(Monitored) RR: 18 BP: 125/66 SpO2: 95% HT: 175.26 cm WT: 113.9 kg General: alert, no acute distress, on nasal cannula oxygen. Skin: warm, dry Head: no trauma, normocephalic Neck: Trachea midline, no adenopathy, no tenderness Eye: normal conjunctiva, sclera clear ENMT: TM's clear, oral mucosa moist, no pharyngeal erythema or exudate Cardiovascular: regular rate and rhythm, normal peripheral perfusion Respiratory: Lungs CTA, respirations non labored Chest wall: no deformity. Gastrointestinal: soft, non distended, no tenderness, no guarding. Obese. Bowel sounds intact. Back: No tenderness, Normal ROM, Normal alignment. Extremities: no deformity, no trauma Neurological: oriented x 4, LOC appropriate for age, CN II-XII intact, motor strength equal & normal bilaterally, sensation equal & normal bilaterally, speech normal Psychiatric: cooperative, affect appropriate for age, normal judgement, normal psychiatric thoughts. Laboratory Results Automated Diff (06/16/2023) Neutro Auto - 75.7 % Lymph Auto - 14.3 % [place] Auto - 8.8 % Eos Auto - 0.9 % Basophil Auto - 0.3 % Neutro Absolute - 6.4 E9/L Lymph Absolute - 1.2 E9/L [place] Absolute - 0.7 E9/L Eos Absolute - 0.1 E9/L Basophil Absolute - 0.0 E9/L BMP (06/16/2023) Glucose Lvl - 129 mg/dL BUN - 16 mg/dL Creatinine - 0.8 mg/dL BUN/Creat Ratio - 20 Sodium Lvl - 136 mmol/L Potassium Lvl - 3.9 mmol/L Chloride - 101 mmol/L CO2 - 27 mmol/L AGAP - 12 mEq/L Calcium Lvl - 9.9 mg/dL Capillary Glucose POC (06/17/2023) Glucose Cap - 133 mg/dL POC Device SN - [id number] POC User ID - [id number] POC Username - FAVIOLA MURO CBC w/ Auto Diff (06/16/2023) WBC - 8.4 E9/L RBC - 4.6 E12/L Hgb - 13.5 gm/dL Hct - 40.0 % MCV - 87.6 fL MCH - 29.6 pg MCHC - 33.8 gm/dL RDW - 14.8 % Platelet - 172.0 E9/L MPV - 10.5 fL D-Dimer (06/16/2023) D-Dimer - 532 ng/mL FEU eGFR (06/16/2023) eGFR - 85 mL/min/1.73 m2 Hemoglobin A1c (06/17/2023) Hgb A1C % - 5.7 % PT & PTT (06/16/2023) PT - 11.4 second(s) INR - 1.0 PTT - 31.8 second(s) Troponin 0 Hr. (06/16/2023) Troponin - 4.60 pg/mL Troponin 3 Hr. (06/16/2023) Troponin - 5.30 pg/mL Troponin 6 Hr. (06/16/2023) Troponin - 5.50 pg/mL Troponin 9 Hr. (06/17/2023) Troponin - 5.20 pg/mL Tests Performed Automated Diff BMP Capillary Glucose POC CBC w/ Auto Diff D-Dimer eGFR Hemoglobin A1c PT & PTT Troponin 0 Hr. Troponin 3 Hr. Troponin 6 Hr. Troponin 9 Hr. CTA Chest Echo Transthoracic Complete -- Results Pending -- US LE Venous Duplex Bilateral XR Chest Single View Please visit your patient portal for your results or contact your primary care physician. Discharge Plan Discharge D (more content not included)...[facility]Result Comment: Electronically Signed By: JANETTE BOOTHE, Alex\.br\Date and Time Signed: 06/17/23 14:21 [id number] Hospital Discharge instructions Patient Education 06/17/2023 14:17:33 Pulmonary Embolism Pulmonary Embolism A pulmonary embolism (PE) is a sudden blockage or decrease of blood flow in one or both lungs that happens when a clot travels into the arteries of the lung (pulmonary arteries). Most blockages come from a blood clot that forms in the vein of a leg or arm (deep vein thrombosis, DVT) and travels to the lungs. A clot is blood that has thickened into a gel or solid. PE is a dangerous and life-threatening condition that needs to be treated right away. What are the causes? This condition is usually caused by a blood clot that forms in a vein and moves to the lungs. In rare cases, it may be caused by air, fat, part of a tumor, or other tissue that moves through the veins and into the lungs. What increases the risk? The following factors may make you more likely to develop this condition: Experiencing a traumatic injury, such as breaking a hip or leg. Having: ?A spinal cord injury. ?Major surgery, especially hip or knee replacement, or surgery on parts of the nervous system or onthe abdomen. ?A stroke. ?A blood-clotting disease. ?Long-term (chronic) lung or heart disease. ?Cancer, especially if you are being treated with chemotherapy. ?A central venous catheter. Taking medicines that contain estrogen. These include control pills and hormone replacement therapy. Being: ?. ?In the period of time after your baby is delivered (). ?Older than age 60. ?Overweight. ?A smoker, especially if you have other risks. ?Not very active (sedentary), not being able to move at all, or spending long periods sitting, suchas travel over 6 hours. You are also at a greater risk if you have a leg in a cast or splint. What are the signs or symptoms? Symptoms of this condition usually start suddenly and include: Shortness of breath during activity or at rest. Coughing, coughing up blood, or coughing up bloody mucus. Chest pain, back pain, or shoulder blade pain that gets worse with deep breaths. Rapid or irregular heartbeat. Feeling light-headed or dizzy, or fainting. Feeling anxious. Pain and swelling in a leg. This is a symptom of DVT, which can lead to PE. How is this diagnosed? This condition may be diagnosed based on your medical history, a physical exam, and tests. Tests may include: Blood tests. An ECG (electrocardiogram) of the heart. A CT pulmonary angiogram. This test checks blood flow in and around your lungs. A ventilation perfusion scan, also called a lung VQ scan. This test measures air flow and blood flow to the lungs. An ultrasound to check for a DVT. How is this treated? Treatment for this condition depends on many factors, such as the cause of your PE, your risk for bleeding or developing more clots, and other medical conditions you may have. Treatment aims to stop blood clots from forming or growing larger. In some cases, treatment may be aimed at breaking apart or removing the blood clot. Treatment may include: Medicines, such as: ?Blood thinning medicines, also called anticoagulants, to stop clots from forming and growing. ?Medicines that break apart clots (fibrinolytics). Procedures, such as: ?Using a flexible tube to remove a blood clot (embolectomy) or to deliver medicine to destroy it (catheter-directed thrombolysis). ?Surgery to remove the clot (surgical embolectomy). This is rare. You may need a combination of immediate, long-term, and extended treatments. Your treatment may continue for several months (maintenance therapy) or longer depending on your medical conditions. You and your health care provider will work together to choose the treatment program that is best for you. Follow these instructions at home: Medicines Take lfyu-oji-bmfawji and prescription medicines only as told by your health care provider. If you are taking blood thinners: ?Talk with your health care provider before you take any medicines that contain aspirin or NSAIDs, such as ibuprofen. These medicines increase your risk for dangerous bleeding. ?Take your medicine exactly as told, at the same time every day. ?Avoid activities that could cause injury or bruising, and follow instructions about how to preventfalls. ?Wear a medical alert bracelet or carry a card that lists what medicines you take. Understand what foods and drugs interact with any medicines that you are taking. General instructions Ask your health care provider when you may return to your normal activities. Avoid sitting or lyingfor a long time without moving. Maintain a healthy weight. Ask your health care provider what weight is healthy for you. Do not use any products that contain nicotine or tobacco. These products include cigarettes, chewing tobacco, and vaping devices, such as e-cigarettes. If you need help quitting, ask your health careprovider. Talk with your health care provider about any travel plans. It is important to make sure that you are still able to take your medicine while traveling. Keep all follow-up visits. This is important. Where to find more information [employer] [employer]: www.lung.org Centers for Disease Control and Prevention: www.cdc.gov Contact a health care provider if: You missed a dose of your blood thinner medicine. You have a fever. Get help right away if: You have: ?New or increased pain, swelling, warmth, or redness in an arm or leg. ?Shortness of breath that gets worse during activity or at rest. ?Worsening chest pain. ?A rapid or irregular heartbeat. ?A severe headache. ?Vision changes. ?A serious fall or accident, or you hit your head. ?Blood in your vomit, stool, or urine. ?A cut that will not stop bleeding. You cough up blood. You feel light-headed or dizzy, and that feeling does not go away. You cannot move your arms or legs. You are confused or have memory loss. These symptoms may represent a serious problem that is an emergency. Do not wait to see if the symptoms will go away. Get medical help right away. Call your local emergency services (741 in the [place] Do not drive yourself to the hospital. Summary A pulmonary embolism (PE) is a serious and potentially life-threatening condition. It happens when a blood clot from one part of the body travels to the arteries of the lung, causing a sudden blockage or decrease of blood flow to the lungs. This may result in shortness of breath, chest pain, dizziness, and fainting. Treatments for this condition usually include medicines to thin your blood (anticoagulants) or medicines to break apart blood clots. If you are given blood thinners, take your medicine exactly as told by your health care provider, at the same time every day. This is important. Understand what foods and drugs interact with any medicines that you are taking. If you have signs of PE or DVT, call your local emergency services (171 in the [place] This information is not intended to replace advice given to you by your health care provider. Make sure you discuss any questions you have with your health care provider. Document Revised: 09/18/2021 Document Reviewed: 09/18/2021 Copytele Patient Education 2022 VideoNot.[email or web address]. Follow Up Care 06/16/2023 15:48:06 With:LINK HAMEED Address: [address] [place] [address] [phone] Business (1) When:1 week Comments:A voice message is left with this office with your information so they can call you for a follow upappiontment. Please call them if you do not hear from them in a few days. Thank you. With:Ezekiel Christian Address: [facility] [address] [place] [address]- When:06/28/2023 11:00:00 [facility]08-18-2023 Evaluation + Plan noteExtracted from: Title:Discharge Note Author:JANETTE BOOTHE, Mbanefo Ramy ate:06/17/23 Discharge To, Anticipated II - Home with responsible caregiver Discharge Diet(s): Low Sodium- 2000 mg (06/17/23 08:03:00) Prescriptions Eliquis 5 mg oral tablet, See Instructions Home albuterol-ipratropium Inh Debby 3 mL UD, 3 mL, Inhalation, QID Aspirin Low Dose 81 mg oral enteric coated tablet ATORVASTATIN CALCIUM 40 MG TABLET, 0 Bevespi Aerosphere 9 mcg-4.8 mcg/inh inhalation aerosol, 2 puff(s), Inhalation, BID busPIRone 15 mg Tab, 15 mg= 1 tab(s), Oral, TID Daily Harvinder oral tablet, 1 tab(s), Oral, Daily, Unable to obtain duloxetine 60 mg oral delayed release capsule Flovent HFA 110 Aerosol, 2 puff(s), Inhalation, BID fluticasone Nasal 0.05 mg/inh [place], 2 spray(s), Nasal, Daily furosemide 20 mg Tab, 20 mg= 1 tab(s), Oral, Daily gabapentin 300 mg Cap, 300 mg= 1 cap(s), Oral, BID hydrochlorothiazide-lisinopril 25 mg-20 mg Tab, 1 tab(s), Oral, Daily lamotrigine 25 mg Tab, 25 mg= 1 tab(s), Oral, BID pioglitazone 15 mg Tab, 15 mg= 1 tab(s), Oral, Daily Potassium Chloride (Uko-Obti-Ewf 10) 10 mEq oral tablet, extended release pramipexole 0.5 mg oral tablet, 0.5 mg= 1 tab(s), Oral, TID theophylline 300 mg ER Tab, 300 mg= 1 tab(s), Oral, q12hr traZODONE 50 mg Tab, 50 mg= 1 tab(s), Oral, Once a day (at bedtime) Ventolin HFA 90 mcg/inh Aerosol-Adpt, 1 puff(s), Inhalation, QID, PRN With When Contact Information Ezekiel Christian 06/28/2023 11:00 AM EDT [facility] [address] [place] [address]- Additional Instructions: LNIK HAMEED Within 1 week [address] [place] [address] [phone] Business (1) Additional Instructions: A voice message is left with this office with your information so they can call you for a follow up appiontment. Please call them if you do not hear from them in a few days. Thank you. Pulmonary Embolism Extracted from: Title:Admission H & P Author:JANETTE BOOTHE, Alex Date:06/16/23 57-year-old female cigarette smoker with history of hypertension, prq-kxsyode-jenpjocxr diabetes mellitus, obesity, chronic hypoxic respiratory failure on 3 L home oxygen, depression presented with complaints of right-sided chest pain today and is being admitted with chest pain secondary to acute pulmonary embolism. 1. Chest pain (R07.9: Chest pain, unspecified) Right midsternal chest pain likely secondary to acute pulmonary embolism. However rule out acute coronary syndrome. Admit to regular medical floor under telemetry. We will complete serial cardiac enzymes. Started patient on as needed pain medications. Chest pain improved. Ordered: Initial Hospital Care/Day High 75 Minutes 24430 2. Acute pulmonary embolism (I26.99: Other pulmonary embolism without acute cor pulmonale) Acute pulmonary embolism etiology unknown. May be secondary to chronic obstructive pulmonary disease/hypoxia/obesity hypoventilation. Check lower extremity DVT study. Start patient on Eliquis 10 mg twice daily x1 week then 5 mg twice daily Check echocardiogram and if normal in AM, then patient can be discharged. Ordered: Initial Hospital Care/Day High 75 Minutes 05458 3. Sinus tachycardia (R00.0: Tachycardia, unspecified) Secondary to above acute pulmonary embolism. Monitor on telemetry. Ordered: Initial Hospital Care/Day High 75 Minutes 35267 4. COPD without exacerbation (J44.9: Chronic obstructive pulmonary disease, unspecified) Supportive care. Continue on nebulizer treatments. Ordered: Initial Hospital Care/Day High 75 Minutes 33867 5. Hypertension (I10: Essential (primary) hypertension) We will verify home medications and resume accordingly. Ordered: Initial Hospital Care/Day High 75 Minutes 49018 6. Diabetes mellitus (E11.9: Type 2 diabetes mellitus without complications) We will verify home medications and resume accordingly. Started patient on sliding scale insulin. Check hemoglobin A1c. 7. Depression (F32.A: Depression, unspecified) Supportive care. 8. Chronic hypoxemic respiratory failure (J96.11: Chronic respiratory failure with hypoxia) Continue on oxygen. 9. Obese (E66.9: Obesity, unspecified) Recommend therapeutic lifestyle modification changes. 10. Smoker (F17.200: Nicotine dependence, unspecified, uncomplicated) Advised on cessation. 11. On deep vein thrombosis (DVT) prophylaxis (Z79.899: Other halfway (current) drug therapy) Eliquis. The patient will be admitted under observation status and will require less than 2 midnight hospital stay for the treatment of above chest pain and acute pulmonary embolism with sinus tachycardia. I discussed the diagnosis and plan of care with the patient and spouse at the bedside. -High level of MDM based on addressing above issues. This documentation was transcribed using voice recognition software. Several attempts were made to ensure accuracy. However inadvertent computerized script supervisor errors may be present. Alex Barrientos. Hospitalist. Orders: acetaminophen, 650 mg = 2 tab(s), Tab, Oral, q6hr PRN Pain, Routine, Start date 06/16/23 19:02:00 EDT, 06/16/23 19:02:00 EDT apixaban, 10 mg = 2 tab(s), Tab, Oral, BID for 7 day(s), Stop date 06/23/23 20:59:00 EDT, Routine, Start date 06/16/23 21:00:00 EDT, 06/16/23 19:02:00 EDT diphenhydrAMINE, 25 mg = 1 cap(s), Cap, Oral, q6hr PRN Itching, Routine, Start date 06/16/23 19:02:00 EDT, 06/16/23 19:02:00 EDT glucose, 50 mL, Soln-IV, IV Push, Once PRN Blood glucose, STAT, Start date 06/16/23 18:59:00 EDT hydrALAZINE, 10 mg = 0.5 mL, Injection, IV Push, q6hr PRN Other (see comment), Routine, Start date 06/16/23 19:02:00 EDT, 06/16/23 19:02:00 EDT insulin lispro, 0-10 Unit(s), Injection-Insulin, SubCutaneous, QIDACHS, Routine, Start date 06/16/23 21:00:00 EDT morphine, 2 mg = 1 mL, Injection, IV Push, q4hr PRN Pain for 5 day(s), Stop date 06/21/23 19:01:00 EDT, Routine, Start date 06/16/23 19:02:00 EDT, 06/16/23 19:02:00 EDT ondansetron, 4 mg = 2 mL, Injection, IV Push, q6hr PRN Nausea, Routine, Start date 06/16/23 19:02:00 EDT, 06/16/23 19:02:00 EDT zolpidem, 5 mg = 1 tab(s), Tab, Oral, Bedtime PRN Sleep, Routine, Start date 06/16/23 19:02:00 EDT, 06/16/23 19:02:00 EDT Cardiac Monitoring Diabetic/Calorie Control Diet Echo Transthoracic Complete HgbA1c Hypoglycemia Protocol Responsive Patient Hypoglycemia Protocol Unresponsive Patient Pulse Oximetry Resuscitation Status - Full Routine Capillary Glucose POC Up ad Laura US LE Venous Duplex Bilateral Vital Signs Weight Extracted from: Title:ED Note Author:Leandro Jo PA-C Reza e:06/16/23 1. Chest pain (R07.9: Chest pain, unspecified) 2. Acute pulmonary embolism, (I26.99: Other pulmonary embolism without acute cor pulmonale)Pulmonary emboli 3. 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 COPD without exacerbation (J44.9: Chronic obstructive pulmonary disease, unspecified) Orders: aspirin, 162 mg = 2 tab(s), Tab-Chew, Oral, Once, Stop date 06/16/23 16:15:00 EDT, STAT, Start date 06/16/23 16:15:00 EDT, 06/16/23 16:15:00 EDT Automated Diff Basic Metabolic Panel CBC w/ Auto Diff CTA Chest D-Dimer ED Cardiac Monitoring eGFR Extra SST Tube Oxygen Saturation Oxygen Therapy PT & PTT Saline Lock Insert Troponin 0 Hr. Troponin 3 Hr. Troponin 6 Hr. Troponin 9 Hr. XR Chest Single View Future Appointments Appointment Date:06/28/2023 11:00:00 AM Scheduled Provider: Location:.ONCOLOGY Appointment Type:ONC Office Visit New 45 (FT) [facility]08-18-2023 Hospital Discharge instructions Follow Up Care 06/17/2023 09:42:41 With:Roby Bob Address: [facility] [place] [address]- [phone] Business (1) When: Unknown Comments:THrombophilia labs now with D dimer.D dimer in 3 weeks if D dimer from now is still high.Continue Eliquis 5 mg twice daily for minimum of 6 months.RTC in 3 weeks for results. [facility]08-17-2023 NoteChief Complaint CP started this afternoon while sitting down. states mid sternal CP 10/10. wears 3L O2 all the time. History of Present Illness 57-year-old female cigarette smoker with history of hypertension, bcr-[id number] diabetes mellitus, obesity, chronic hypoxic respiratory failure on 3 L home oxygen, depression presented with complaints of right-sided chest pain today. According to the patient she was in her usual state of health until today when she developed right-sided midsternal chest pain. She was at rest when she developed the pain. Pain is rated at 10/10. She denies any pain radiation. She denies any dizziness, shortness of breath, fever associated with pain. She denies any recent travels. She denies any hormonal therapy. She denies coronary artery disease. In the emergency room her D-dimer was elevated and a chest CTA was performed that confirmed acute subsegmental pulmonary embolism. And is being admitted with chest pain secondary to acute pulmonary embolism. Review of Systems Constitutional: no fever, no chills, no sweats, no weakness Skin: no Jaundice, no rash, no lesions, nopetechiae ENMT: no ear pain, no sore throat, no congestion, no hoarseness Respiratory: no shortness of breath, no cough, no orthopnea, no wheezing Cardiovascular: severe chest pain, no palpitations, no edema Gastrointestinal: no nausea, no vomiting, no diarrhea, no GI bleeding Genitourinary: no dysuria, no hematuria, no discharge, no pain Musculoskeletal: no back pain, no trauma Neurologic: no headache, no dizziness, no numbness, no weakness Psychiatric: no sleeping problems, no irritability, no mood swings/depression. Heme/Lymph: no bleeding tendency, no bruising tendency, no petechiae, no swollen nodes Allergy/Immunologic: no seasonal allergies, no food allergies, no recurrent infections, no impairedimmunity Additional ROS info: Except as noted in the above Review of Systems and in the History of Present Illness all other systems have been reviewed and are negative or noncontributory. Scoring Aleman Fall Risk Score: 35 (06/16/23) Physical Exam Vitals & Measurements T: 36.7 ?C(Oral) HR: 92(Monitored) RR: 28 BP: 143/75 SpO2: 98% HT: 175 cm WT: 115 kg General: alert, no acute distress, comfortable in bed on nasal cannula oxygen. Skin: warm, dry Head: no trauma, normocephalic Neck: Trachea midline, no adenopathy, no tenderness Eye: normal conjunctiva, sclera clear ENMT: TM's clear, oral mucosa moist, no pharyngeal erythema or exudate Cardiovascular: regular rate and rhythm, normal peripheral perfusion Respiratory: Lungs CTA, respirations non labored Chest wall: no deformity. Gastrointestinal: soft, non distended, no tenderness, no guarding. Obese. Bowel sounds intact. Back: No tenderness, Normal ROM, Normal alignment. Extremities: no deformity, no trauma, no edema. Neurological: oriented x 4, LOC appropriate for age, CN II-XII intact, motor strength equal & normal bilaterally, sensation equal & normal bilaterally, speech normal Psychiatric: cooperative, affect appropriate for age, normal judgement, normal psychiatric thoughts. Lab Results WBC: 8.4 E9/L (06/16/23 16:00:00) RBC: 4.6 E12/L (06/16/23 16:00:00) HGB: 13.5 gm/dL (06/16/23 16:00:00) Hct: 40 % (06/16/23 16:00:00) MCV: 87.6 fL (06/16/23 16:00:00) MCH: 29.6 pg (06/16/23 16:00:00) MCHC: 33.8 gm/dL (06/16/23 16:00:00) RDW: 14.8 % High (06/16/23 16:00:00) Platelet: 172 E9/L (06/16/23 16:00:00) MPV: 10.5 fL (06/16/23 16:00:00) Neutro Auto: 75.7 % High (06/16/23 16:00:00) Lymph Auto: 14.3 % (06/16/23 16:00:00) [place] Auto: 8.8 % (06/16/23 16:00:00) Eos Auto: 0.9 % (06/16/23 16:00:00) Basophil Auto: 0.3 % (06/16/23 16:00:00) Neutro Absolute: 6.4 E9/L (06/16/23 16:00:00) Lymph Absolute: 1.2 E9/L (06/16/23 16:00:00) [place] Absolute: 0.7 E9/L (06/16/23 16:00:00) Eos Absolute: 0.1 E9/L (06/16/23 16:00:00) Basophil Absolute: 0 E9/L (06/16/23 16:00:00) PT: 11.4 second(s) (06/16/23 16:00:00) INR: 1 (06/16/23 16:00:00) PTT: 31.8 second(s) (06/16/23 16:00:00) D-Dimer: 532 ng/mL FEU Critical (06/16/23 16:00:00) Glucose Lvl: 129 mg/dL (06/16/23 16:00:00) BUN: 16 mg/dL (06/16/23 16:00:00) Creatinine: 0.8 mg/dL (06/16/23 16:00:00) eGFR: 85 mL/min/1.73 m2 (06/16/23 16:00:00) BUN/Creat Ratio: 20 (06/16/23 16:00:00) Sodium Lvl: 136 mmol/L (06/16/23 16:00:00) Potassium Lvl: 3.9 mmol/L (06/16/23 16:00:00) Chloride: 101 mmol/L (06/16/23 16:00:00) CO2: 27 mmol/L (06/16/23 16:00:00) AGAP: 12 mEq/L (06/16/23 16:00:00) Calcium Lvl: 9.9 mg/dL (06/16/23 16:00:00) Troponin: 4.6 pg/mL Low (06/16/23 16:00:00) Diagnostic Results (06/16/2023 17:45 EDT CTA Chest) * Final Report * Reason For Exam Pulmonary embolism (PE) suspected, low to intermediate prob, positive D- dimer;Other (please specify) POWERSCRIBE REPORT IMPRESSION: POSITIVE FOR PULMONARY EMBOLI WITHIN SUBSEGMENTAL BRANCHES SUPPLYING THE RIGHT LOWER LOBE. E (more content not included)...[facility] CenterComment on above: Result Comment: Electronically Signed By: JANETTE BOOTEH, Alex\.br\Date and Time Signed: 06/16/23 19:05 [id number] NoteStable, f[facility] NoteCurrently well controlled with lasix [facility]02-24-2023 NoteNo concerning symptoms, overall she is doing well.[facility]02-24-2023 Note Hypertension is well controlled 102/62 Continue lisinopril/HCTZ, lasix Renal function [facility]Un[facility]-2023 NotePatient here for 6 mo follow up hypertension and myocardial bridge of coronary artery. Had labs in Jul 2022. Denies chest pain and lightheadedness. Review of Systems Cardiovascular: Positive for dyspnea on exertion. Respiratory: Positive for cough and shortness of breath. Musculoskeletal: Positive for arthritis, back pain and joint pain. Neurological: Positive for headaches. All other systems reviewed and are negative.[facility] 12-24-2022 NoteUTP CARDIOLOGY PROGRESS NOTE HPI: Sis Moore is a 57 y.o. female here for Hypertension and Shortness of Breath Patient here for 6 mo follow up hypertension and myocardial bridge of coronary artery. Had labs in Jul 2022. Denies chest pain and lightheadedness. Reports typical shortness of breath with exertion and is currently on oxygen 3 L/NC. F/U with Dr Gaines for pulmonary. Review of Systems Cardiovascular: Positive for dyspnea on exertion. Respiratory: Positive for cough and shortness of breath. Musculoskeletal: Positive for arthritis, back pain and joint pain. Neurological: Positive for headaches. All other systems reviewed and are negative. Review of Systems Constitutional: Negative. Respiratory: Positive for shortness of breath. Cardiovascular: Negative. Neurological: Negative. All other systems reviewed and are negative. Visit Vitals BP 102/62 (BP Location: Left arm, Patient Position: Sitting) Pulse 86 Ht 1.753 m (5' 9 ) Wt 113 kg (250 lb) SpO2 96% BMI 36.92 kg/m??? Smoking Status Former BSA 2.35 m??? No Known Allergies Medications: Current Outpatient Medications on File Prior to Visit Medication Sig Dispense Refill albuterol 90 mcg/actuation inhaler Ventolin HFA 90 mcg/actuation aerosol inhaler INHALE 2 PUFFS EVERY 4 HOURS NEEDED FOR SHORTNESS OF BREATH ALPRAZolam (Xanax) 0.25 mg tablet alprazolam 0.25 mg tablet TAKE ONE TABLET BY MOUTH DAILY NEEDED FOR ACUTE ANXIETY aspirin 81 mg EC tablet aspirin 81 mg tablet,delayed release TAKE 1 TABLET BY MOUTH DAILY atorvastatin (Lipitor) 40 mg tablet atorvastatin 40 mg tablet TAKE ONE TABLET BY MOUTH DAILY busPIRone (Buspar) 15 mg tablet Take 15 mg by mouth in the morning and at bedtime. celecoxib (CeleBREX) 200 mg capsule celecoxib 200 mg capsule TAKE ONE CAPSULE BY MOUTH ONCE DAILY DULoxetine (Cymbalta) [address] capsule duloxetine 60 mg capsule,delayed release TAKE ONE CAPSULE BY MOUTH ONCE DAILY fluticasone (Flovent) 110 mcg/actuation inhaler Flovent HFA 110 mcg/actuation aerosol inhaler INHALE 2 PUFFS TWICE A DAY -RINSE MOUTH AFTER USE furosemide (Lasix) 20 mg tablet Take 1 tablet (20 mg) by mouth in the morning. 90 tablet 3 gabapentin (Neurontin) 300 mg capsule gabapentin 300 mg capsule TAKE ONE CAPSULE BY MOUTH DAILY AT 5PM glycopyrrolate-formoteroL (Bevespi Aerosphere) 9-4.8 mcg HFA aerosol inhaler Bevespi Aerosphere 9 mcg-4.8 mcg HFA aerosol inhaler INHALE 2 PUFFS TWICE A DAY lamoTRIgine (LaMICtal) 25 mg tablet TAKE TWO TABLETS BY MOUTH ONCE DAILY AT BEDTIME lisinopriL-hydrochlorothiazide 20-25 mg tablet lisinopril 20 mg-hydrochlorothiazide 25 mg tablet TAKE ONE TABLET BY MOUTH DAILY pioglitazone (Actos) 15 mg tablet pioglitazone 15 mg tablet TAKE ONE TABLET BY MOUTH ONCE DAILY potassium chloride CR (Klor-Con) 10 mEq ER tablet potassium chloride ER 10 mEq tablet,extended release TAKE ONE TABLET BY MOUTH DAILY sucralfate (Carafate) 1 gram tablet sucralfate 1 gram tablet TAKE ONE TABLET BY MOUTH ON AN EMPTY STOMACH THREE TIMES A DAY FOR 30 DAYS theophylline ER (Uniphyl) 400 mg 24 hr tablet theophylline ER 400 mg tablet,extended release 24 hr TAKE ONE TABLET BY MOUTH TWICE A DAY traZODone (Desyrel) 50 mg tablet trazodone 50 mg tablet TAKE TWO TABLETS BY MOUTH DAILY AT BEDTIME No current facility-administered medications on file prior to visit. Physical Exam: Constitutional: Appearance: Normal appearance. Without apparent distress, obese, chronically ill. HENT: Head: Normocephalic and atraumatic. Nose: Nose normal. Mouth/Throat: Mouth: Mucous membranes are moist. Eyes: Extraocular Movements: Extraocular movements intact. Conjunctiva/sclera: Conjunctivae normal. Neck: Vascular: No JVD. Cardiovascular: Rate and Rhythm: Normal rate and regular rhythm. Pulses: Dorsalis pedis pulses are 3 on the right side and 3on the left side. Posterior tibial pulses are 3 on the right side and 3 on the left side. Heart sounds: Normal heart sounds, S1 normal and S2 normal. Pulmonary: Effort: Pulmonary effort is normal. Breath sounds: Normal breath sounds. Abdominal: General: Bowel sounds are normal. Palpations: Abdomen is soft. Musculoskeletal: General: Normal range of motion. Cervical back: Normal range of motion. Right lower leg: No edema. Left lower leg: No edema. Skin: General: Skin is warm and dry. Capillary Refill: Capillary refill takes less than 2 seconds. Neurological: General: No focal deficit present. Mental Status: She is alert and oriented to person, place, and time. Psychiatric: Mood and Affect: Mood normal. Behavior: Behavior normal. Thought Content: Thought content normal. Judgment: Judgment normal. Labs: Last lab values have been reviewed CV Testing: Cath 2014- stable- metoprolol was stopped in 2020- most likely r/t pulmonary disease. Cath 2014- stable- metoprolol was stopped in 2020- most likely r/t pulmo (more content not included)...[facility] 12-24-2022 NoteProvider had extended 10 min discussion again with patient about smoking cessation, at this time she doesn't want to take any further medication or that she is ready to quit smoking at this time.[facility] Evaluation + Plan note Future Appointments Appointment Date:07/19/2023 10:00:00 AM Scheduled Provider: Location:FT.ONCOLOGY Appointment Type:ONC Office Visit 30 ([facility]) [facility] Future Appointments Appointment Date:01/16/2024 09:00:00 AM Scheduled Provider: Location:[facility].ONCOLOGY Appointment Type:ONC Office Visit 30 (FT) Future Scheduled Tests Laboratory* CBC w/ Auto Diff 12/27/23 * Comprehensive Metabolic Panel 12/27/23 * D-Dimer 12/27/23 [facility] Narrative No data available for this section [facility] No data available for this section [facility] Summary Purpose Family History No Family History Records FoundNo Family History Records FoundNo Family History Records Found No data available for this section No Family History Records Found No data available for this section No Family History Records Found Advance Directives No Advanced Directives Records FoundNo Advanced Directives Records FoundNo Advanced Directives Records FoundNo Advanced Directives Records FoundNo Advanced Directives Records Found Additional Source Comments INFORMATION SOURCE (unrecogn ized section and content) DATE CREATED AUTHOR 06/22/2021 [facility] DATE CREATED AUTHOR AUTHOR'S ORGANIZ ATION 12/15/2021 [facility] DATE CREATED AUTHOR AUTHOR'S ORGANIZ ATION 02/26/2023 [facility] DATE CREATED AUTHOR AUTHOR'S ORGANIZ ATION 09/10/2023 [facility] DATE CREATED AUTHOR AUTHOR'S ORGANIZ ATION 10/15/2023 [facility] Patient Care team informatio n (unrecognized section and content) Personnel Name: LINK HAMEED CNP Address: Address: [address] [place] [place] [address] Personnel Name: LINK AHMEED CNP Address: Address: [address] [place] [address] [place] Name: Yessica GREEN Address: Address: [address] [place] [address] Personnel Name: RANDYRASHMI NUNEZ LINK Connie Address: Address: [address] [place] [address] Name: Yessica GREEN Address: Address: [facility] [place] [address] Personnel Name: LINK HAMEED CNP Address: Address: [address] [place] [address] Name: Yessica GREEN Address: Address: [address] [place] [address] Personnel Name: ZARI NUNEZ LINK Connie Address: Address: [address] [place] [address] [place] Name: Yessica GREEN Address: Address: [address] [place] [address] FOR RECORDS PERTAINING TO PATIENTS WHO ARE OR HAVE BEEN ENROLLED IN A CHEMICAL DEPENDENCY/SUBSTANCEABUSE PROGRAM, SOME INFORMATION MAY BE OMITTED. This clinical summary was aggregated from multiple sources. Caution should be exercised in using it in the provision of clinical care. This summary normalizes information from multiple sources, and as a consequence, information in this document may materially change the coding, format and clinical context of patient data. In addition, data may be omitted in some cases. CLINICAL DECISIONS SHOULD BE BASED ON THE PRIMARY CLINICAL RECORDS. [facility] provides no warranty or guarantee of the accuracy or completeness of information in this document.
--- NOTE | 2023-10-31 09:29 | ED_ITS ---
HPI - Extremity Problem General Chief complaint: Extremity Problem, Nontraumatic Stated complaint: LOWER EXTREMITY PAIN Time Seen by Provider: 10/31/23 09:29 Source: patient Mode of arrival: Wheelchair Limitations: no limitations History of Present Illness HPI Narrative: this patient's here complaining of pain in her right knee. She somewhat of a limited historian but says she's been referred to an orthopedic doctor in [facility] but she is not heard back from them. She's had x-rays here and I confirmed that. She is not allowed to take anti-inflammatory medications on a regular basis because she is on blood thinners now. She says she has a flare up from time to time. She's not had a new injury. She's not had fever or chills. She's not nose redness of the skin or break in the skin or anything that would imply cellulitis or infection around the joint. Otherwise no complaints today. She does not have the name of the orthopedic doctor she was referred to. She's not seen anyone in this community. States that she no she's got severe arthritics pain and might have to have knee surgery. She's never had an injection of her knee. Related Data Previous Rx's Medication Instructions Recorded tramadol 50 mg tablet 50 mg PO TID PRN pain #14 tabs 08/24/23 Allergies Allergy/AdvReac Type Severity Reaction Status Date / Time No Known Drug Allergies Allergy Verified 10/31/23 07:52 [facility] Social History Smoking status: Former smoker Exam Narrative Exam Narrative: awake alert very pleasant. Vital signs are stable she is afebrile. Problems EXAMINATION both knees have chronic swelling pain and swelling. However the right knee has 1+ effusion. There is mild warmth over both her knees. She has r estriction of molten motion in both knees but is worse in the right. Peripheral pulses on the right side is normal with no evidence of vascular ischemia. There is no evidence of deep vein thrombosis or phlebitis in either leg. Constitutional Vital Signs, click to edit/add: Last Vital Signs Temp 98 F 10/31/23 07:52 Pulse 104 H 10/31/23 07:52 Resp 20 10/31/23 07:52 BP 140/80 10/31/23 07:52 Pulse Ox 95 10/31/23 07:52 O2 Del Method Room Air 10/31/23 07:52 Course Vital Signs Vital signs: Vital Signs Temperature 98 F 10/31/23 07:52 Pulse Rate 104 H 10/31/23 07:52 Respiratory Rate 20 10/31/23 07:52 Blood Pressure 140/80 10/31/23 07:52 Pulse Oximetry 95 10/31/23 07:52 Oxygen Delivery Method Room Air 10/31/23 07:52 Temperature 98 F 10/31/23 07:52 Pulse Rate 104 H 10/31/23 07:52 Respiratory Rate 20 10/31/23 07:52 Blood Pressure 140/80 10/31/23 07:52 Pulse Oximetry 95 10/31/23 07:52 Oxygen Delivery Method Room Air 10/31/23 07:52 Discharge Plan Discharge Chief Complaint: Extremity Problem, Nontraumatic Clinical Impression: Knee osteoarthritis Patient Disposition: Home, Self-Care Time of Disposition Decision: 09:32 Prescriptions / Home Meds: No Action tramadol 50 mg tablet 50 mg PO TID PRN (Reason: pain) Qty: 14 0RF Additional Instructions: Medrol plaque/Americus/eyes/following up with Dr. Berkowitz Stand Alone Forms: Portal Instructions Referrals: Brea Jj NP [Primary Care Provider] - 1 week
== END 2023-10-31 09:44 | disposition home or self-care (01) ==
PROVIDERS: Emergency Provider Emergency Medicine Emergency Medical Services; PCP Nurse Practitioner
DX: M17.11 Unilateral primary osteoarthritis, right knee (principal); Z87.891 Personal history of nicotine dependence
CPT/HCPCS: 99283

== ENCOUNTER 2023-12-20 18:58 | Emergency (ER) | payer OTHER, SELFPAY ==
--- OUTSIDE RECORDS SUMMARY | 2023-12-20 19:04 | XMS_ITS | CCD ---
Author Name Unknown Address [address] [place] [address] Organization [facility] Care Team Providers Care Floor Technician Name Role Phone TOSHIA SAM Attending Unavailable TOSHIA SAM Admitting Unavailable SELF, REFERRED Referring Unavailable SELF, REFERRED Primary Care Unavailable AICHHOLZ, SHOOTING GALLERY OPERATOR BREA Primary Care Unavailable SAMSA ., CORRINA Consulting Unavailable SAMSA ., CORRINA Admitting Unavailable SAMSA ., CORRINA Attending Unavailable AICHHOLZ, SHOOTING GALLERY OPERATOR BREA Attending Unavailable AICHHOLZ, SHOOTING GALLERY OPERATOR BREA Consulting Unavailable AICHHOLZ, SHOOTING GALLERY OPERATOR BREA Primary Care Unavailable AICHHOLZ, SHOOTING GALLERY OPERATOR BREA Admitting Unavailable AICHHOLZ, SHOOTING GALLERY OPERATOR BREA Primary Care Unavailable ROSA M, DR MIGUEL Cline Consulting Unavailable SAMSA ., CORRINA Admitting Unavailable SAMSA ., CORRINA Attending Unavailable SAMSA ., CORRINA Consulting Unavailable SAMSA ., CORRINA Attending Unavailable SAMSA ., CORRINA Consulting Unavailable SAMSA ., CORRINA Admitting Unavailable AICHHOLZ, SHOOTING GALLERY OPERATOR BREA Primary Care Unavailable AICHHOLZ, SHOOTING GALLERY OPERATOR BREA Attending Unavailable LETY, DR LEANA Worrell Consulting Unavailable AICHHOLZ, SHOOTING GALLERY OPERATOR BREA Primary Care Unavailable AICHHOLZ, SHOOTING GALLERY OPERATOR BREA Admitting Unavailable AICHHOLZ, SHOOTING GALLERY OPERATOR BREA Consulting Unavailable PAY ., DR SALAZAR Admitting Unavailable PAY ., DR SALAZAR Attending Unavailable PAY ., DR SALAZAR Consulting Unavailable AICHHOLZ, SHOOTING GALLERY OPERATOR BREA Primary Care Unavailable QUETA .JUAN Consulting UnavailJustine Kauffman Consulting Unavailable AICHHOLZ, SHOOTING GALLERY OPERATOR BREA Primary Care Unavailable PAY ., DR SALAZAR Attending Unavailable PAY ., DR SALAZAR Admitting Unavailable GRECHNY .JUAN Consulting UnavailKENDY Gomez Consulting Unavailable AICHHOLZ, SHOOTING GALLERY OPERATOR BREA Attending Unavailable AICHHOLZ, SHOOTING GALLERY OPERATOR BREA Consulting Unavailable АННА, ENRIQUE MAZA Primary Care Unavailable АННА, ENRIQUE MAZA Admitting Unavailable BREA JJ Primary Care Physician Yessica SPENCER Unavailable TOSHIA SAM Attending Unavailable MARLENE SOTO Attending Unavailable Roby Bob Admitting Unavailabl e Trace-Roby Ortez Attending Unavailabl e BRYCEKLIONEL Mbanefo Admitting Unavailable ONimco STRICKLANDfo Attending Unavailable Ramses Hair Attending Unavailable Moses Fischer Attending Unavailable Roby Bob Attending UnavailKerri Estrellaanefo Referring Unavailable Roby oBb Attending UnavailNEAL BurnsA Attending Unavailable BREA JJ Attending Unavailable Brea Jj NP Unavailable Jose M Light MD Primary Care Provider [phone] Allergies Allergy Classification Reported Allergen(s) Allergy Type Date of Onset Reaction(s) Facility (1 source) No Known Medication Allergies; Translations: [No Known Medication Allergies] Propensity to adverse reactions (disorder) [facility] Repository Medications Current Medications Medication Drug Class(es) Dates Sig (Normalized) Sig (Original) [id number] 200 actuat albuterol 0.09 mg/actuat metered dose inhaler (3 sources) beta2-Adrenergic Agonist take 2 puff(s) by mouth every four hours as needed Ventolin HFA 108 (90 Base) MCG/ACT inhaler INHALE 2 PUFFS BY MOUTH FOR SHOTNESS OF BREATH EVERY 4 HOURS NEEDED 0 Active albuterol 0.833 mg/ml / ipratropium bromide 0.167 mg/ml inhalation solution (8 sources) Anticholinergic, beta2-Adrenergic Agonist Start: 06-17-2023 take 3 mL by inhalation four times daily albuterol-ipratrop ium Inh Debby 3 mL UD 3 mL, Inhalation, QID, 60 EA, Refill(s) 0 Start Date: 06/17/23 Status: Ordered ALPRAZolam 0.25 mg oral tablet (2 sources) Benzodiazepine End: 12-05-2023 take 1 tablet by mouth once daily as needed for anxiety ALPRAZolam (Xanax) 0.25 MG tablet TAKE ONE TABLET BY MOUTH NEEDED FOR ACUTE ANXIETY DAILY 0 12/05/2023 Discontinued (Ineffective) amitriptyline hydrochloride 50 mg oral tablet (2 sources) Tricyclic Antidepressant Start: 10-19-2023 End: 12-05-2023 take 1 tablet by mouth at bedtime amitriptyline (Elavil) 50 MG tablet Indications: Other insomnia Take 1 tablet (50 mg) by mouth at bedtime 30 tablet 1 10/19/2023 12/05/2023 Discontinued (Ineffective) apixaban 5 mg oral tablet (12 sources) Factor Xa Inhibitor Start: 06-28-2023 take 1 tablet by mouth twice daily Eliquis 5 mg oral tablet 5 mg = 1 tab(s), Oral, BID, # 180 tab(s), Refills(s) 3, Pharmacy: [facility] 1155, 175, cm, 06/28/23 10:58:00 EDT, Height/Length Dosing, 114.6, kg, 06/28/23 10:58:00 EDT, Weight Dosing Start Date: 06/28/23 Status: Ordered Start: 06-17-2023 take 2 tablets by mo ut twice daily, then take 1 tablet by mouth twice daily Eliquis 5 MG tablet TAKE TWO TABLETS BY MOUTH TWICE A DAY FOR 6 DAYS, THE TAKE ONE TABLET TWICE A DAY FOR 30 DAYS 0 06/17/2023 Active aspirin 81 mg oral tablet (8 sources) Platelet Aggregation Inhibitor, Nonsteroidal Anti-inflammatory Drug Start: 06-17-2023 Aspirin Low Dose 81 mg oral enteric coated tablet Refills(s) 0 Start Date: 06/17/23 Status: Ordered take 1 tablet by mouth in the mo rning Aspirin Low Dose 81 MG EC tablet Take 81 mg by mouth in the morning. 0 Active atorvastatin 40 mg oral tablet (8 sources) HMG-CoA Reductase Inhibitor Start: 10-12-2023 take 1 tablet by mouth once daily atorvastatin (Lipitor) 40 MG tablet Indications: Mixed hyperlipidemia (CMS/HCC) TAKE ONE TABLET BY MOUTH ONCE DAILY 30 tablet 5 10/12/2023 Active Start: 06-17-2023 ATORVASTATIN C ALCIUM 40 MG TABLET ATORVASTATIN CALCIUM 40 MG TABLET Start Date: 06/17/23 Status: Ordered busPIRone hydrochloride 15 mg oral tablet (9 sources) Start: 06-17-2023 End: 01-07-2024 take 1 tablet by mouth in the morning busPIRone (Buspar) 15 MG tablet Indications: Anxiety and depression (CMS/HCC) Take 1 tablet (15 mg) by mouth in the morning and 1 tablet (15 mg) before bedtime. 60 tablet 2 12/08/2023 01/07/2024 Active calcium carbonate 1500 mg / cholecalciferol 200 unt oral tablet (3 sources) Vitamin D Start: 06-09-2023 take 1 tablet by mouth in the morning Calcium Carb-Cholecalcif troy 600-5 MG-MCG tablet Take 1 tablet by mouth in the morning and 1 tablet before bedtime. 0 06/09/2023 Active celecoxib 200 mg oral capsule (1 source) Nonsteroidal Anti-inflammatory Drug Start: 12-08-2023 End: 01-07-2024 take 1 capsule by mouth in the morning celecoxib (CeleBREX) 200 MG capsule Indications: Arthritis Take 1 capsule (200 mg) by mouth in the morning. 30 capsule 5 12/08/2023 01/07/2024 Active clonazePAM 0.5 mg oral tablet (5 sources) Benzodiazepine Start: 12-05-2023 End: 01-04-2024 take 1 tablet by mouth at bedtime clonazePAM (KlonoPIN) 0.5 MG tablet Indications: Other insomnia , Anxiety and depression (CMS/HCC) , Restless leg syndrome Take 1 tablet (0.5 mg) by mouth at bedtime 30 tablet 1 12/05/2023 01/04/2024 Active Daily Harvinder oral tablet (5 sources) Start: [...] DULoxetine 60 mg delayed release oral capsule (8 sources) Serotonin and Norepinephrine Reuptake Inhibitor Start: 06-09-2023 take 1 capsule by mouth in the morning DULoxetine (Cymbalta) [address] capsule Take 60 mg by mouth in the morning. 0 06/09/2023 Active fluticasone propionate 0.05 mg/actuat metered dose nasal spray (16 sources) Corticosteroid Start: 06-17-2023 take 2 puff(s) by inhalation twice daily Flovent HFA 110 Aerosol = 2 puff(s), Inhalation, BID, # 12 gram, Refills(s) 0 Start Date: 06/17/23 Status: Ordered Start: 06-17-2023 fluticasone Na margaret 0.05 mg/inh [place] 2 spray(s), Nasal, Daily, 16 gram, Refill(s) 0, each nostril Start Date: 06/17/23 Status: Ordered Start: 04-13-2023 take 2 spray(s) nasa l route once daily fluticasone (Flonase) 50 MCG/ACT nasal spray INSTILL 2 SPRAYS IN EACH NOSTRIL ONCE DAILY 0 04/13/2023 Active take 2 puff(s) by in halation in the morning Flovent HFA 110 MCG/ACT inhaler Inhale 2 puffs in the morning and 2 puffs before bedtime. 0 Active 120 actuat formoterol fumarate 0.0048 mg/actuat / glycopyrrolate 0.009 mg/actuat metered dose inhaler (8 sources) beta2-Adrenergic Agonist Start: 06-17-2023 take 2 puff(s) by inhalation twice daily Bevespi Aerosphere 9 mcg-4.8 mcg/inh inhalation aerosol 2 puff(s), Inhalation, BID, Refill(s) 11 Start Date: 06/17/23 Status: Ordered take 2 puff(s) by in halation in the morning Bevespi Aerosphere 9-4.8 MCG/ACT aerosol Inhale 2 puffs in the morning and 2 puffs before bedtime. 0 Active furosemide 20 mg oral tablet (8 sources) Loop Diuretic Start: 06-09-2023 take 1 tablet by mouth in the morning furosemide (Lasix) 20 MG tablet Take 20 mg by mouth in the morning. 0 06/09/2023 Active gabapentin 300 mg oral capsule (8 sources) Anti-epileptic Agent Start: 10-12-2023 take 1 capsule by mouth in the morning gabapentin (Neurontin) 300 MG capsule Indications: Restless leg syndrome Take 1 capsule (300 mg) by mouth in the morning. Take at 5pm. 30 capsule 5 10/12/2023 Active Start: 06-17-2023 [facility] gabap[facility] 300 mg Cap 300 mg = 1 cap(s), Oral, BID, # 60 cap(s), Refills(s) 0 Start Date: 06/17/23 Status: Ordered hydroCHLOROthiazide 25 mg / lisinopril 20 mg oral tablet (8 sources) Thiazide Diuretic, Angiotensin Converting Enzyme Inhibitor Start: 10-12-2023 take 1 tablet by mouth once daily lisinopril-hydroCHLOROthiazide 20-25 MG tablet Indications: Primary hypertension (CMS/HCC) TAKE ONE TABLET BY MOUTH ONCE DAILY 30 tablet 5 10/12/2023 Active Start: 06-17-2023 hydrochlorothi azide-lisinopril 25 mg-20 mg Tab 1 tab(s), Oral, Daily, 30 tab(s), Refill(s) 0 Start Date: 06/17/23 Status: Ordered lamoTRIgine 25 mg oral tablet (8 sources) Mood Stabilizer, Anti-epileptic Agent Start: 10-12-2023 take 2 tablets by mouth at bedtime lamoTRIgine (LaMICtal) 25 MG tablet Indications: Anxiety and depression (CMS/HCC) Take 2 tablets (50 mg) by mouth at bedtime 60 tablet 5 10/12/2023 Active Start: 06-17-2023 take 1 tablet by [facility] twice daily lamotrigine 25 mg Tab 25 mg = 1 tab(s), Oral, BID, # 60 tab(s), Refills(s) 0 Start Date: 06/17/23 Status: Ordered pioglitazone 15 mg oral tablet (9 sources) Peroxisome Proliferator Receptor alpha Agonist, Peroxisome Proliferator Receptor gamma Agonist, Thiazolidinedione Start: 06-17-2023 End: 01-07-2024 take 1 tablet by mouth in the morning pioglitazone (Actos) 15 MG tablet Indications: Type 2 diabetes mellitus without complication, without long-term current use of insulin (CMS/HCC) Take 1 tablet (15 mg) by mouth in the morning. 30 tablet 5 12/08/2023 01/07/2024 Active Potassium Chloride (8 sources) Start: 06-17-2023 Potassium Chloride (Cyt-Afad-Opu 10) 10 mEq oral tablet, extended release Refills(s) 0 Start Date: 06/17/23 Status: Ordered take 1 tablet by mouth in the mo rning potassium chloride CR (Klor-Con) 10 MEQ ER tablet Take 10 mEq by mouth in the morning. 0 Active pramipexole dihydrochloride 0.5 mg oral tablet (8 sources) Nonergot Dopamine Agonist Start: 10-12-2023 take 1 tablet by mouth at bedtime pramipexole (Mirapex) 0.5 MG tablet Indications: Restless leg syndrome Take 1 tablet (0.5 mg) by mouth at bedtime 30 tablet 5 10/12/2023 Active Start: 06-17-2023 take 1 tablet by tamar th three times daily pramipexole 0.5 mg oral tablet 0.5 mg = 1 tab(s), Oral, TID, # 270 tab(s), Refills(s) 0 Start Date: 06/17/23 Status: Ordered theophylline 300 mg extended release oral tablet (8 sources) Methylxanthine Start: 06-09-2023 take 1 tablet by mouth every twelve hours theophylline ER (Franki-Dur) 300 MG 12 hr tablet TAKE 1 12 TABLETS BY MOUTH EVERY 12 HOURS 0 06/09/2023 Active traZODone hydrochloride 50 mg oral tablet (5 [...] 1 tablet by mouth every eight hours Zofran ODT 4 mg Tab-Dis 4 mg = [...] abdominal pain] Onset: 03-26-2022 Episodic Anxiety disorders (7 sources) Generalized anxiety disorder; Translations: [Mixed anxiety and depressive disorder] Onset: 03-31-2022 12-05-2023 Chronic Biliary tract disease (1 source) Cholelithiasis without obstruction; Translations: [Calculus of gallbladder without cholecystitis without obstruction] Onset: 09-25-2023 Episodic Cardiac and circulatory congenital anomalies (2 sources) Malformation of coronary vessels; Translations: [Malformation of coronary vessels] Onset: 12-24-2022 Chronic Cardiac dysrhythmias (1 source) Tachyarrhythmia ; Translations: [Tachycardia, unspecified] Onset: 06-16-2023 Episodic Chronic obstructive pulmonary disease and bronchiectasis (12 sources) Chronic obstructive pulmonary disease with (acute) exacerbation; Translations: [Chronic obstructive pulmonary disease, unspecified] Onset: 12-24-2022 Chronic Diabetes mellitus with complications (4 sources) Type 2 diabetes mellitus with other specified complication; Translations: [TYPE 2 DM W/OTHER SPEC COMPLICATION] Onset: 01-03-2023 Chronic Diabetes mellitus without complication (5 sources) Type 2 diabetes mellitus without complication; Translations: [Type 2 diabetes mellitus without complications] Onset: 06-16-2023 Chronic Disorders of lipid metabolism (5 sources) Mixed hyperlipidemia; Translations: [Hyperlipidemia, unspecified] Onset: 03-31-2022 10-12-2023 Chronic Essential hypertension (5 sources) Essential (primary) hypertension; Translations: [Essential hypertension] Onset: 02-26-2023 Chronic Mood disorders (1 source) Depressive disorder; Translations: [Depression, unspecified] Onset: 06-16-2023 Chronic Nausea and vomiting (1 source) Nausea and vomiting; Translations: [Nausea with vomiting, unspecified] Onset: 09-25-2023 Episodic Nonspecific chest pain (2 sources) Chest pain; Translations: [Chest pain, unspecified] Onset: 06-16-2023 Episodic Osteoarthritis (4 sources) Arthritis; Translations: [Unspecified osteoarthritis, unspecified site] Onset: 12-05-2023 12-05-2023 Chronic Other aftercare (1 source) retirement (current) use of aspirin; Translations: [ALF CURRENT USE OF ASPIRIN] Onset: 02-26-2023 Episodic Other aftercare (1 source) Other intermediate (current) drug therapy; Translations: [OTH UNLOADER CURRENT DRUG THERAPY] Onset: 02-26-2023 Episodic Other aftercare (1 source) Long-term current use of drug therapy; Translations: [Other terminal make up operator (current) drug therapy] Onset: 06-16-2023 Episodic Other hereditary and degenerative nervous system conditions (1 source) Restless legs syndrome; Translations: [RESTLESS LEGS SYNDROME] Onset: 02-26-2023 Chronic Other hereditary and degenerative nervous system conditions (5 sources) Restless legs; Translations: [Restless legs syndrome] Onset: 10-12-2023 12-05-2023 Chronic Other lower respiratory disease (4 sources) [...] Obesity; Translations: [Obesity, unspecified] Onset: 06-16-2023 Chronic Other nutritional; endocrine; and metabolic disorders (5 sources) Body mass index 30+ - obesity; Translations: [Body mass index (BMI) 37.0-37.9, adult] Onset: 12-05-2023 12-05-2023 Chronic Other nutritional; endocrine; and metabolic disorders (3 sources) Severe obesity; Translations: [Morbid (severe) obesity due to excess calories] Onset: 10-19-2023 10-19-2023 Chronic Pulmonary heart disease (4 sources) Other pulmonary embolism without acute cor pulmonale; Translations: [Pulmonary embolism] Onset: 06-16-2023 Episodic Residual codes; unclassified (5 sources) Insomnia; Translations: [Other insomnia] Onset: 10-19-2023 12-05-2023 Chronic Residual codes; unclassified (5 sources) Obstructive sleep apnea syndrome; Translations: [Obstructive sleep apnea (adult) (pediatric)] Onset: 10-19-2023 12-05-2023 Chronic Respiratory failure; insufficiency; arrest (adult) (3 sources) Dependence on supplemental oxygen; Translations: [Chronic respiratory failure with hypoxia] Onset: 02-05-2023 Chronic Screening and history of mental health and substance abuse codes (5 sources) Personal history of nicotine dependence; Translations: [PERSONAL HISTORY OF NICOTINE DEPEND] Onset: 03-31-2022 Episodic Substance-related disorders (12 sources) Nicotine dependence, cigarettes, uncomplicated; Translations: [Nicotine dependence] Onset: 12-24-2022 Chronic Comment on above: Added secondary to d ocumentation in Social History. Past or Other Problems Problem Classification Problem Date Documented Da te Episodic/Chronic Other aftercare (4 sources) Encounter for therapeutic drug level monitoring; Translations: [ENC THERAPEUTC DRUG LEVL MONITORING] Onset: 11-04-2022 Episodic Other lower respiratory disease (3 sources) Dyspnea on exertion; Translations: [Other forms of dyspnea] Onset: 12-24-2022 12-05-2023 Episodic Other screening for suspected conditions (not mental disorders or infectious disease) (4 sources) Encounter for screening mammogram for malignant neoplasm of breast; Translations: [ENC SCR MAMMO MALIG NEOPLASM BREAST] Onset: 04-30-2022 Episodic Residual codes; unclassified (2 sources) Edema, unspecified; Translations: [Edema, unspecified] Onset: 12-24-2022 Episodic Residual codes; unclassified (3 sources) Bilateral lower limb edema; Translations: [Localized edema] Onset: 12-24-2022 12-05-2023 Episodic Results Test Name Value Interpretation Reference Range Facility Prescriptions/Work Noteson 1 12-14-2022 Prescriptions/Work Notes [id number]# 1.00TIFF Normal [facility] CT Abdomen/Pelvis w/ Contras ton 09-26-2023 CT [...] 300 Contrast amount in ml's: 100 Normal [facility] Discharge Instructionson Discharge Instructions [id number]# 1.00TIFF Normal [facility] Monitor Recordon 09-26-2023 Monitor Record [id number]# 1.00TIFF Normal [facility] UA With Cult Reflexon 2022 Bilirubin Ql (U) Negative Normal Negative [facility] Comment on above: Performed By: #### 2 691568, 4513209, 64480748, 74848235, 5411599, 2308747, 09664124, 34396552 #### [facility] [address] [place] [address] Clarity (U) CLEAR Normal Clear [facility] Comment on above: Performed By: #### 2 689714, 5562139, 66067865, 32995817, 0314807, 7783950, 50862276, 65306514 #### [facility] [address] [place] [address] Color (U) YELLOW Normal Yellow [facility] Comment on above: Performed By: #### 2 228056, 6128620, 98761592, 26009929, 7033860, 4419146, 68380039, 63665901 #### [facility] [address] [place] [address] Epithelial cells.squamous LM.HPF (Urine sed) [#/Area] 0-2 Normal 0-2 [facility] Comment on above: Performed By: #### 2 965992, 3274918, 95179379, 01686033, 9583199, 1855425, 28983155, 19181544 #### [facility] [address] [place] [address] Glucose Test strip (U) [Mass/Vol] Negative Normal Negative [facility] Comment on above: Performed By: #### 2 622677, 5790195, 68240017, 96979466, 3730013, 1671918, 25754585, 45436914 #### [facility] [address] [place] [address] Hemoglobin Ql (U) Negative Normal Negative [facility] Comment on above: Performed By: #### 2 510825, 3547628, 78440135, 68281019, 6530455, 4309954, 47920233, 68533263 #### [facility] [address] [place] [address] Ketones (U) [Mass/Vol] Negative Normal Negative [facility] Comment on above: Performed By: #### 2 354562, 5893985, 25147780, 25179934, 3965174, 9637550, 25708556, 89032798 #### [facility] [address] [place] [address] Fairgarden.plasma/Fairgarden .RBC (Bld) [Mass ratio] 0-3 Normal 0-3 [facility] Comment on above: Performed By: #### 2 310160, 7798025, 54501820, 48197889, 3237372, 0817224, 14375135, 13094986 #### [facility] [address] [place] [address] Nitrite Ql (U) Negative Normal Negative [facility] Comment on above: Performed By: #### 2 495096, 0836466, 24514841, 34103707, 3284454, 9042636, 50613539, 18448226 #### [facility] [address] [id number] pH (U) 6.5 [pH] Invalid Interpretation Code 5.0-9.0 [facility] Comment on above: Performed By: #### 2 418427, 1076832, 03685445, 39837069, 8640158, 4745490, 32743674, 10641269 #### [facility] [address] [place] [address] Protein (U) [Mass/Vol] Negative Normal Negative [facility] Comment on above: Performed By: #### 2 873078, 1462289, 57875590, 47024857, 4840735, 6348230, 26414586, 87908236 #### [facility] [address] [place] [address] Specific gravity (U) [Rel density] <=1.005 Invalid Interpretation Code 1.005-1.030 [facility] Comment on above: Performed By: #### 2 072198, 9904632, 31479883, 00692319, 1359311, 4176647, 21865855, 47397671 #### [facility] [address] [place], [place] [address] Type of Urine collection method Clean Catch Normal [facility] Comment on above: Performed By: #### 2 538225, 2694962, 34110414, 17829091, 6913763, 6261901, 82781281, 73775687 #### [facility] [address] [place], [place] [address] Urobilinogen Qn (U) 0.2 {Nayla'U}/dL Normal 0.0-1.0 [facility] Comment on above: Performed By: #### 2 413166, 3387658, 82489583, 03596613, 4432357, 0880562, 51233896, 05468911 #### [facility] [address] [place] [address] WBC Auto Ql (U) Negative Normal Negative [facility] Comment on above: Performed By: #### 2 767061, 0983731, 43891481, 29685127, 4477844, 5974058, 81932738, 54323714 #### [facility] [address] [place] [address] WBC LM.HPF (Urine sed) [#/Area] 0-5 Normal 0-5 [facility] Comment on above: Performed By: #### 2 094028, 9562486, 79669187, 65401949, 5888218, 5476380, 58307730, 01201311 #### [facility] [address] [place] [address] Auto Diffon 09-25-2023 Basophils/100 WBC (Bld) 0.6 % Normal 0.0-2.0 [facility] Comment on above: Order Comment: Order Added by Discern Expert. Performed By: #### 2 941491, 1303569, 84947053, 1260005, 1639801, 6545755 ####[facility] [address] [place] [address] Basophils/Leukocytes Auto (Bld) [Pure # fraction] 0.1 E9/L Normal 0.0-0.2 [facility] Comment on above: Order Comment: Order Added by Discern Expert. Performed By: #### 2 278382, 0073049, 57264119, 6608716, 5454767, 2932473 ####[facility] [address] [place] [address] Eosinophils/100 WBC (Bld) 1.5 % Normal 0.0-8.0 [facility] Comment on above: Order Comment: Order Added by Discern Expert. Performed By: #### 2 265479, 8558966, 26828126, 5514828, 1232856, 2713595 ####[facility] [address] [place] [address] Eosinophils/Leukocytes Auto (Bld) [Pure # fraction] 0.1 E9/L Normal 0.0-0.5 [facility] Comment on above: Order Comment: Order Added by Discern Expert. Performed By: #### 2 758403, 0576034, 55919961, 3856395, 7250881, 0197884 ####[address] [address] Lymphocytes/100 WBC (Bld) 15.3 % Normal 14.0-50.0 [facility] Comment on above: Order Comment: Order Added by Discern Expert. Performed By: #### 2 921535, 4622444, 41255262, 9089857, 9364843, 7254863 ####[address] [address] Lymphocytes/Leukocytes Auto (Bld) [Pure # fraction] 1.5 E9/L Normal 1.0-4.0 [facility] Comment on above: Order Comment: Order Added by Discern Expert. Performed By: #### 2 590993, 0893060, 26584007, 9763664, 5470567, 7018590 ####[address] [address] Monocytes/100 WBC (Bld) 7.4 % Normal 4.0-14.0 [facility] Comment on above: Order Comment: Order Added by Discern Expert. Performed By: #### 2 764258, 2130781, 64994628, 2673041, 6599801, 3236794 ####[address] [place] [address] Monocytes/Leukocytes Auto (Bld) [Pure # fraction] 0.7 E9/L Normal 0.2-1.0 [facility] Comment on above: Order Comment: Order Added by Discern Expert. Performed By: #### 2 394725, 0593416, 14718820, 8672241, 7098702, 2691379 ####[address] [place] [address] Neutrophils/100 WBC (Bld) 75.2 % High 36.0-75.0 [facility] Comment on above: Order Comment: Order Added by Discern Expert. Performed By: #### 2 577672, 4201085, 94141164, 5805492, 7731370, 1914466 ####[facility] [address] [place] [address] Neutrophils/Leukocytes Auto (Bld) [Pure # fraction] 7.1 E9/L Normal 2.0-7.5 [facility] Comment on above: Order Comment: Order Added by Discern Expert. Performed By: #### 2 759985, 4594304, 95288780, 6450177, 8867119, 0167990 ####[facility] [address] [place] [address] BMPon 09-25-2023 Creatinine [Mass/Vol] 0.9 mg/dL Normal 0.5-1.3 [facility] Comment on above: Performed By: #### 2 294572, 3640819, 88234473, 5103339, 9671874, 1853022 ####[address] [place] [address] Urea nitrogen [Mass/Vol] 20 mg/dL Normal 5-21 [facility] Comment on above: Performed By: #### 2 704659, 6392472, 55753745, 8600533, 1722389, 4720327 ####[facility] [address] [place] [address] Urea nitrogen/Creatinine [Mass ratio] 22 No Units High 10-20 [facility] Comment on above: Performed By: #### 2 814294, 2556116, 68612163, 9040946, 2895630, 1387209 ####[facility] [address] [place] [address] Anion gap [Moles/Vol] 10 mmol/L Normal 6-16 [facility] Comment on above: Performed By: #### 2 683104, 4363580, 65745737, 2812940, 5694882, 0351309 ####[facility] [address] [place] [address] Calcium [Mass/Vol] 10.4 mg/dL Normal 8.9-11.1 [facility] Comment on above: Performed By: #### 2 980077, 2873727, 37028014, 6727164, 3425174, 7901342 ####[facility] [address] [place] [address] Chloride [Moles/Vol] 101 mmol/L Normal 101-111 [facility] Comment on above: Performed By: #### 2 412607, 8918492, 21656328, 6414100, 7581332, 0272871 ####[facility] [address] [place] [address] CO2 [Moles/Vol] 27 mmol/L Normal 21-31 [facility] Comment on above: Performed By: #### 2 080737, 8210863, 84064861, 9862504, 0648543, 0150705 ####[facility] [address] [place] [address] Glucose [Mass/Vol] 155 mg/dL Normal 55-199 [facility] Comment on above: Result Comment: If t his glucose result represents a fasting glucose, interpretation should refer to the following reference range: 55-99 mg/dL Performed By: #### 2 256492, 7059645, 39756650, 5558451, 5869089, 9984345 ####[facility] [address] [place] [address] Potassium [Moles/Vol] 4.0 mmol/L Normal 3.5-5.3 [facility] Comment on above: Performed By: #### 2 738549, 7179077, 71555683, 0526851, 6117143, 5719671 ####[facility] [address] [place] [address] Sodium [Moles/Vol] 134 mmol/L Low 135-145 [facility] Comment on above: Performed By: #### 2 717849, 1832155, 72834355, 6514744, 1449637, 3185981 ####[facility] [address] [place] [address] CBC w/ Auto Diffon 3 Erythrocyte distribution width (RBC) [Ratio] 15.3 % High 10.9-14.2 [facility] Comment on above: Performed By: #### 2 628593, 4771230, 00532420, 8425629, 7303610, 7036359 ####[address] [place] [address] Hematocrit (Bld) [Volume fraction] 38.4 % Normal 34.0-46.0 [facility] Comment on above: Performed By: #### 2 968467, 9831364, 02336514, 8504531, 5790391, 6438701 ####[address] [address] Hemoglobin (Bld) [Mass/Vol] 13.0 g/dL Normal 12.0-16.0 [facility] Comment on above: Performed By: #### 2 380051, 2844730, 76669315, 6968076, 4884122, 8752366 ####[address] [address] MCH (RBC) [Entitic mass] 29.4 pg Normal 27.0-34.0 [facility] Comment on above: Performed By: #### 2 691670, 3723207, 25886076, 0082364, 7677861, 1496617 ####[address] [place] [address] MCHC (RBC) [Mass/Vol] 33.9 g/dL Normal 31.4-36.0 [facility] Comment on above: Performed By: #### 2 239205, 8409091, 96636793, 4421510, 6845354, 5684796 ####[address] [place] [address] MCV (RBC) [Entitic vol] 86.6 fL Normal 80.0-100.0 [facility] Comment on above: Performed By: #### 2 499607, 4961458, 25705266, 3696481, 1049245, 0220300 ####[facility] [address] [place] [address] Platelet mean volume (Bld) [Entitic vol] 9.5 fL Normal 6.4-10.8 [facility] Comment on above: Performed By: #### 2 942638, 5006816, 49171106, 2483515, 0750614, 1435200 ####[facility] [address] [place] [address] Platelets (Bld) [#/Vol] 207.0 E9/L Normal 150.0-500.0 [facility] Comment on above: Performed By: #### 2 794870, 0646980, 66534506, 2259414, 0156452, 7286798 ####[address] [address] RBC (Bld) [#/Vol] 4.4 E12/L Normal 4.3-5.9 [facility] Comment on above: Performed By: #### 2 949502, 7720310, 45604043, 2493160, 1626282, 1447298 ####[address] [place] [address] WBC corrected for nucl RBC Auto (Bld) [#/Vol] 9.5 E9/L Normal 4.0-11.0 [facility] Comment on above: Performed By: #### 2 232015, 0650517, 30669048, 4125144, 5877362, 6202419 ####[address] [place] [address] CHEMISTRYOrdered By: SYSTEM SYSTEM on 09-25-2023 Albumin [...] 0.9 mg/dL Normal 0.5 - 1.3 mg/dL FT Remisol GFR/1.73 sq M.predicted among non-blacks MDRD (S/P/Bld) [Vol rate/Area] 74 mL/min/1.73 m2 Normal >=59mL/min/1 .73 m2 [facility] Chem S Comment on above: Interpretive Data: C hronic kidney disease could be indicated at eGFR's of less than 60 mL/min/1.73m2. Kidney failure is indicated at less than 15 mL/min/1.73m2. Globulin (S) [Mass/Vol] 4.0 g/dL Normal 1.4 - 4.0 gm/dL [facility] Glucose [Mass/Vol] 155 mg/dL Normal 55 - 199 mg/dL [facility] Comment on above: Interpretive Data: I f this glucose result represents a fasting glucose, interpretation should refer to the following reference range: 55-99 mg/dL Lipase [Catalytic activity/Vol] 39 U/L Normal 13 - 58 unit/L [facility] Potassium [Moles/Vol] 4.0 mmol/L Normal 3.5 - 5.3 mmol/L [facility] Protein [Mass/Vol] 7.9 g/dL High 6.0 - 7.8 gm/dL [facility] Sodium [Moles/Vol] 134 mmol/L Low 135 - 145 mmol/L [facility] Urea nitrogen [Mass/Vol] 20 mg/dL Normal 5 - 21 mg/dL [facility] Urea nitrogen/Creatinine [Mass ratio] 22 mg/mg High 10 - 20 [facility] Consent for Treatmenton 09-01 Consent for Treatment [id number] .00TIFF Normal [facility] ED Clinical Summaryon 2022 ED Clinical Summary [place] [address] ED Clinical Summary Person Information Name: SIS MOORE [facility] Age: 57 Years : 1965 Sex: Female Language: Monegasque PCP: BREA JJ CNP Marital Status: Visit Id: Visit Reason: [...] 09/25/2023 21:57:44 09/25/2023 21:57:44 09/25/2023 21:57:44 AD[address]: [address] [address] [address] [facility] [phone] PHYS DOC NOTES: MEDICAL INFORMATION: Prescriptions Given: [facility], [address], [place] [id number], [phone] dicyclomine (Bentyl 10 mg Cap) 1 Capsules [...] day. fluticasone nasal (fluticasone Nasal 0.05 mg/inh [place]) 2 Sprays Nasal Inhalation every day. each [...] Mouth every day. potassium chloride (Potassium Chloride (Oxh-Hgzp-Wno 10) 10 mEq oral tablet, extended release) pramipexole (pramipexole 0.5 mg oral tablet) 1 Tablets By Mouth 3 times a day. theophylline (theophylline 300 mg ER Tab) 1 Tablets By Mouth every 12 hours. trazodone (traZODONE 50 mg Tab) 1 Tablets By Mouth once a day (at bedtime). PATIENT EDUCATION INFORMATION: Instructions: Cholelithiasis Follow up: With: Address: When: [facility] [address] [place] [address] 3, [address] Floor, [address] [place] [phone] Business (1) In 3 days 09/28/2023 With: Address: When: BREA JJ [address] [place], [place] [phone] Business (1) In 3 days DIAGNOSIS: AP (abdominal pain); Cholelithiasis; N&V (nausea and vomiting) Normal [facility] ED Note-Physicianon 09-25-20 ED Note-Physician Basic Information Time Seen: Aaliyah Moses Ramos 09/25/2023 19:14 Chief Complaint pt c\o abd [...] and Complexity of Problems Differential Diagnosis: [] [facility] Data External documents reviewed: N/A My [...] In 3 days 09/28/2023 EST [address] [facility] 3, 2nd Floor, [address] [place] [phone] Business (1) Additional Instructions: BREA JJ In [address] [place] [address] [phone] Business (1) Additional Instructions: Patient Education Cholelithiasis Problem List/Past Medical History Ongoing Smoker Historical No qualifying data Procedure/Surgical History delivery (05/05/1987), delivery (06/20/1984), Cyst, Knee. Medications Inpatient morphine 4 mg/mL Inj, 4 mg= 1 mL, IV Push, Once Zofran 4 mg/2 mL Injection, 4 mg= 2 mL, IV Push, Once Home albuterol- (more content not included)... Normal [facility] Comment on above: Result Comment: Elec tronically [...] to break (more content not included)... Normal [facility] ED Patient Summaryon 023 ED Patient Summary [address] [place] [id number] Patient Discharge Instructions Person Information Name: SIS MOORE Age: 57 Years Arrival Date: 09/25/2023 18:09:44 Discharge Diagnosis: AP (abdominal pain); Cholelithiasis; N&V (nausea and vomiting) Primary Care Physician: BREA JJ CNP Provider Information Primary Provider: Moses Fischer DO Advanced Ice Cream Dipper:None The exam and treatment you received in the Emergency Department were for an urgent problem and are not intended as complete care. It is important that you follow up with a doctor, nurse practitioner, or physician?s medical assistant dermatology for ongoing care. If your symptoms become worse or you do not improve as expected and you are unable to reach your usual health care provider, you should return to the Emergency Department. We are available 24 hours a day. SIS MOORE has been given the following list of patient education materials, prescriptions and follow-up instructions: Follow-up Instructions: With: Address: When: [facility] [address] [place] [address] 3, [address] Floor, [address] [place] [phone] Business (1) In 3 days 09/28/2023 With: Address: When: BREA Hernandez [address], [place], [place] [phone] Business (1) In 3 days In the event that this physician does not participate in your insurance network, please consult with your insurance company to find a nearby participating provider. Patient Education Materials: Cholelithiasis A MESSAGE TO ALL PATIENTS REGARDING OPIOIDS PRESCRIPTION OPIOIDS: WHAT YOU NEED TO KNOW Prescription opioids can be used to help relieve eawzvtwj-hr-rimhvf pain and are often prescribed following a [...] and overdos (more content not included)... Normal [facility] HEMATOLOGYOrdered By: SYSTEM SYSTEM on 09-25-2023 Basophils/100 WBC (Bld) 0.6 % Normal 0.0 - 2.0 % [facility] HemeAutoSS Basophils/Leukocytes Auto (Bld) [Pure # fraction] 0.1 E9/L Normal 0.0 - 0.2 E9/L [facility] HemeAutoSS Eosinophils/100 WBC (Bld) 1.5 % Normal [...] 4.4 E12/L Normal 4.3 - 5.9 E12/L [facility] HemeAutoSS WBC corrected for nucl RBC Auto (Bld) [#/Vol] 9.5 E9/L Normal 4.0 - 11.0 E9/L [facility] HemeAutoSS Hep Func Panelon 09-25-2023 Albumin [Mass/Vol] 3.9 g/dL Normal 3.3-5.0 [facility] Comment on above: Performed By: #### 2 070820, 5873097, 37091099, 9240303, 2128904, 7957824 ####[address] [address] Albumin/Globulin (S) [Mass conc ratio] 1.0 Low 1.1-2.2 [facility] Comment on above: Performed By: #### 2 667289, 8993288, 49953350, 8803286, 0535317, 6614401 ####[address] [address] ALP [Catalytic activity/Vol] 66 Int._Unit/L Normal 21-98 [facility] Comment on above: Performed By: #### 2 067905, 6359718, 65909332, 0636842, 1051917, 2346247 ####[address] [address] ALT No additional P-5'-P [Catalytic activity/Vol] 25 Int._Unit/L Normal 6-46 [facility] Comment on above: Performed By: #### 2 141631, 7430955, 36199973, 8284672, 7584132, 9690060 ####[address] [address] AST [Catalytic activity/Vol] 25 Int._Unit/L Normal 5-43 [facility] Comment on above: Performed By: #### 2 022690, 7764796, 83537550, 0139272, 4890443, 3158397 ####[address] [address] Bilirubin [Mass/Vol] 0.2 mg/dL Normal 0.0-1.1 [facility] Comment on above: Performed By: #### 2 048616, 2166504, 58366657, 1640212, 2540569, 7247838 ####[address] [address] Bilirubin.direct [Mass/Vol] 0.1 mg/dL Normal 0.1-0.4 [facility] Comment on above: Performed By: #### 2 724820, 1892577, 93917614, 7062556, 0856681, 4805927 ####[facility] [address] [place] [address] Bilirubin.indirect [Mass or moles/Vol] 0.1 mg/dL Normal 0.1-0.9 [facility] Comment on above: Performed By: #### 2 421849, 0717579, 32303253, 6830044, 3461885, 8924876 ####[address] [place] [address] Globulin (S) [Mass/Vol] 4.0 g/dL Normal 1.4-4.0 [facility] Comment on above: Performed By: #### 2 649094, 3527950, 31046936, 5087948, 2891301, 6115135 ####[address] [place] [address] Protein [Mass/Vol] 7.9 g/dL High 6.0-7.8 [facility] Comment on above: Performed By: #### 2 397526, 9981545, 50757743, 5621637, 3353461, 7543792 ####[address] [place] [address] Lipase Levelon 09-25-2023 Lipase [Catalytic activity/Vol] 39 U/L Normal 13-58 [facility] Comment on above: Performed By: #### 2 262495, 2323731, 81592890, 0474665, 4923277, 4409641 ####[address] [address] RAD - Preliminary Cat Scan R eporton 09-25-2023 RAD - Preliminary Cat Scan Report [id number]# 1.00TIFF Normal [facility] URINALYSISOrdered By: Tanya Nathan on 09-25-2023 Bilirubin Ql (U) Negative (09/25/23 9:53 PM) Normal Negative [facility] UA Auto SS Clarity (U) Clear (09/25/23 9:53 PM) Normal Clear [facility] UA Auto SS Color (U) Yellow (09/25/23 [...] PM) Normal Negative [facility] UA Auto SS Fairgarden.plasma/[place]garden .RBC (Bld) [Mass ratio] 0-3 /HPF Normal [...] PM) Invalid Interpretation Code 1.005 - 1.030 FT UA Auto SS UA Spec Desc Clean Catch (09/25/23 9:53 PM) Normal [facility] UA Auto SS Urobilinogen Qn (U) 0.5723688 {Nayla'U}/dL Normal 0.0 - 1.0 EU/dL [facility] UA Auto SS WBC Auto Ql (U) Negative (09/25/23 9:53 PM) Normal Negative [facility] UA Auto SS WBC LM.HPF (Urine sed) [#/Area] 0-5 /HPF Normal 0-5/HPF [facility] UA Auto SS eGFRon 09-25-2023 GFR/1.73 sq M.predicted among non-blacks MDRD (S/P/Bld) [Vol rate/Area] 74 mL/min/1.73 m2 Normal >=59 [facility] Comment on above: Order Comment: Order added by Discern Expert. Result Comment: Oil Mixer nita kidney disease could be indicated at eGFR's of less than 60 mL/min/1.73m2. Kidney failure is indicated at less than 15 mL/min/1.73m2. Performed By: #### 2 967772, 3986224, 72095086, 0645299, 7801008, 6522641 ####[facility] [address] [place] [address] 36on 09-08-2023 36 Approving, but needs appt for additional refills. Normal [facility] Auto Diffon 09-08-2023 Basophils/100 WBC (Bld) 0.2 % Normal 0.0-2.0 [facility] Comment on above: Order Comment: Order Added by Discern Expert. Performed By: #### 2 128866, 5769690, 58426469, 17329564, 1970863, 0610129, 26255656, 58887054 #### [facility] [address] [place] [address] Basophils/Leukocytes Auto (Bld) [Pure # fraction] 0.0 E9/L Normal 0.0-0.2 [facility] Comment on above: Order Comment: Order Added by Discern Expert. Performed By: #### 2 168812, 8307731, 03235313, 30093107, 9871366, 3503126, 94133573, 74624579 #### [facility] [address] [place] [address] Eosinophils/100 WBC (Bld) 0.8 % Normal 0.0-8.0 [facility] Comment on above: Order Comment: Order Added by Discern Expert. Performed By: #### 2 219312, 4586519, 48696285, 93877207, 8509020, 2472695, 84022747, 53382597 #### [facility] [address] [place] [address] Eosinophils/Leukocytes Auto (Bld) [Pure # fraction] 0.1 E9/L Normal 0.0-0.5 [facility] Comment on above: Order Comment: Order Added by Discern Expert. Performed By: #### 2 563477, 9478468, 91755310, 01616754, 5133483, 9334891, 00501189, 74885796 #### [facility] [address] [place] [address] Lymphocytes/100 WBC (Bld) 11.3 % Low 14.0-50.0 [facility] Comment on above: Order Comment: Order Added by Discern Expert. Performed By: #### 2 101278, 7203728, 19723551, 32465780, 9839307, 2233037, 67398096, 59812664 #### [facility] [address] [place] [address] Lymphocytes/Leukocytes Auto (Bld) [Pure # fraction] 1.0 E9/L Normal 1.0-4.0 [facility] Comment on above: Order Comment: Order Added by Discern Expert. Performed By: #### 2 912291, 0901175, 10274090, 28588177, 9565154, 0646536, 24058440, 08910774 #### [facility] [address] [place] [address] Monocytes/100 WBC (Bld) 6.9 % Normal 4.0-14.0 [facility] Comment on above: Order Comment: Order Added by Discern Expert. Performed By: #### 2 349706, 5504501, 81985415, 03705840, 3219135, 6042843, 16677580, 38606752 #### [facility] [address] [place] [address] Monocytes/Leukocytes Auto (Bld) [Pure # fraction] 0.6 E9/L Normal 0.2-1.0 [facility] Comment on above: Order Comment: Order Added by Discern Expert. Performed By: #### 2 086406, 8352811, 98025657, 10609884, 0662230, 2615253, 22078848, 82463240 #### [facility] [address] [place] [address] Neutrophils/100 WBC (Bld) 80.8 % High 36.0-75.0 [facility] Comment on above: Order Comment: Order Added by Discern Expert. Performed By: #### 2 554804, 2112911, 56595284, 01167133, 0610513, 3134130, 00484679, 24699913 #### [facility] [address] [place] [address] Neutrophils/Leukocytes Auto (Bld) [Pure # fraction] 7.1 E9/L Normal 2.0-7.5 [facility] Comment on above: Order Comment: Order Added by Discern Expert. Performed By: #### 2 789611, 4429820, 47710575, 78838939, 4283306, 5219130, 40132424, 19652925 #### [facility] [address] [place] [address] BMPon 09-08-2023 Creatinine [Mass/Vol] 1.2 mg/dL Normal 0.5-1.3 [facility] Comment on above: Performed By: #### 2 738030, 8488716, 14214320, 03936436, 5110986, 9942046, 09841038, 03271872 #### [facility] [address] [place] [address] Urea nitrogen [Mass/Vol] 26 mg/dL High 5-21 [facility] Comment on above: Performed By: #### 2 587181, 1924493, 57797069, 78130528, 1693279, 4035611, 84396276, 64092837 #### [facility] [address] [place] [address] Urea nitrogen/Creatinine [Mass ratio] 22 No Units High 10-20 [facility] Comment on above: Performed By: #### 2 128945, 3865232, 12022975, 80155725, 7719253, 3491956, 48580763, 97950738 #### [facility] [address] [place] [address] Anion gap [Moles/Vol] 13 mmol/L Normal 6-16 [facility] Comment on above: Performed By: #### 2 923629, 9682552, 81160217, 84389371, 2760635, 4964951, 37846213, 12874928 #### [facility] [address] [place] [address] Calcium [Mass/Vol] 9.9 mg/dL Normal 8.9-11.1 [facility] Comment on above: Performed By: #### 2 525485, 2617980, 50733049, 84987121, 3566016, 5757532, 49156997, 70341357 #### [facility] [address] [place] [address] Chloride [Moles/Vol] 99 mmol/L Low 101-111 [facility] Comment on above: Performed By: #### 2 339935, 6184661, 26691789, 09677773, 6743928, 7742951, 43748691, 28527170 #### [facility] [address] [place] [address] CO2 [Moles/Vol] 28 mmol/L Normal 21-31 [facility] Comment on above: Performed By: #### 2 627974, 1625874, 44634597, 65789815, 6262094, 6797861, 97314461, 69249403 #### [facility] [address] [place] [address] Glucose [Mass/Vol] 126 mg/dL Normal 55-199 [facility] Comment on above: Result Comment: If t his glucose result represents a fasting glucose, interpretation should refer to the following reference range: 55-99 mg/dL Performed By: #### 2 574037, 9088235, 52497376, 33197977, 5563848, 9774975, 50013109, 69489060 #### [facility] [address] [place] [address] Potassium [Moles/Vol] 4.0 mmol/L Normal 3.5-5.3 [facility] Comment on above: Performed By: #### 2 031402, 8156396, 18294130, 91957017, 7677741, 7290639, 18823261, 89412073 #### [facility] [address] [place] [address] Sodium [Moles/Vol] 136 mmol/L Normal 135-145 [facility] Comment on above: Performed By: #### 2 747461, 2695754, 15616347, 28874318, 3699364, 6929046, 82785024, 75714812 #### [facility] [address] [place] [address] BNPon 09-08-2023 Int Ctr BNP Pass Normal [facility] Comment on above: Performed By: #### 2 403947, 1103296, 91086252, 50186157, 6253646, 3765345, 52354991, 56738363 #### [facility] [address] [place] [address] Natriuretic peptide B (Bld) [Mass/Vol] 21 pg/mL Normal 5-80 [facility] Comment on above: Performed By: #### 2 937207, 2253063, 77767096, 52444849, 6657945, 3071549, 34401399, 94799024 #### [facility] [address] [place] [address] CBC w/ Auto Diffon 3 Erythrocyte distribution width (RBC) [Ratio] 15.1 % High 10.9-14.2 [facility] Comment on above: Performed By: #### 2 567042, 7927970, 90492079, 57590349, 6240609, 2500296, 17686249, 69670934 #### [facility] [address] [place] [address] Hematocrit (Bld) [Volume fraction] 38.8 % Normal 34.0-46.0 [facility] Comment on above: Performed By: #### 2 746430, 2477439, 38803693, 10518442, 1122536, 7570509, 21419552, 28904029 #### [facility] [address] [place] [address] Hemoglobin (Bld) [Mass/Vol] 13.0 g/dL Normal 12.0-16.0 [facility] Comment on above: Performed By: #### 2 300632, 3523971, 06365613, 44727730, 8560814, 3794455, 26512855, 32735916 #### [facility] [address] [place] [address] MCH (RBC) [Entitic mass] 29.4 pg Normal 27.0-34.0 [facility] Comment on above: Performed By: #### 2 179100, 4977420, 88799237, 37326254, 9842708, 2032753, 37520622, 87405579 #### [facility] [address] [place] [address] MCHC (RBC) [Mass/Vol] 33.5 g/dL Normal 31.4-36.0 [facility] Comment on above: Performed By: #### 2 960479, 8325267, 95664976, 84371806, 2551974, 4838481, 20777351, 09226320 #### [facility] [address] [place] [address] MCV (RBC) [Entitic vol] 87.6 fL Normal 80.0-100.0 [facility] Comment on above: Performed By: #### 2 384109, 3405032, 30374601, 00852929, 0201646, 6111120, 30329026, 58007480 #### [facility] [address] [place] [address] Platelet mean volume (Bld) [Entitic vol] 10.7 fL Normal 6.4-10.8 [facility] Comment on above: Performed By: #### 2 854322, 0571086, 56690437, 97303523, 5223829, 6349881, 79507956, 52580041 #### [facility] [address] [place] [address] Platelets (Bld) [#/Vol] 195.0 E9/L Normal 150.0-500.0 [facility] Comment on above: Performed By: #### 2 059942, 5213514, 87976415, 36095754, 9097488, 9885105, 93525541, 59004245 #### [facility] [address] [place] [address] RBC (Bld) [#/Vol] 4.4 E12/L Normal 4.3-5.9 [facility] Comment on above: Performed By: #### 2 523510, 8945173, 03622031, 35150451, 0585942, 1969051, 01821473, 97704769 #### [facility] [address] [place] [address] WBC corrected for nucl RBC Auto (Bld) [#/Vol] 8.8 E9/L Normal 4.0-11.0 [facility] Comment on above: Performed By: #### 2 953812, 6225412, 63724174, 13204937, 0853352, 5575647, 02897008, 26276612 #### [facility] [address] [place] [address] CHEMISTRYOrdered By: SYSTEM SYSTEM on 09-08-2023 Troponin I.cardiac [Mass/Vol] 4.20 pg/mL Low 10.10 - 27.10 pg/mL [facility] Comment on above: Interpretive Data: T he 95% CI (Confidence Interval) PPV (Positive Predictive Value) for myocardial infarction in females is 38 pg/mL, in males 51 pg/mL. The results should be used in conjunction with clinical conditions of myocardial infarction. (Access High Sensitivity Troponin I Instructions For Use, [place], May 2018) Albumin [Mass/Vol] 3.8 g/dL Normal [...] 4.5 g/dL High 1.4 - 4.0 gm/dL [facility] Glucose [Mass/Vol] 126 mg/dL Normal 55 - 199 mg/dL [facility] Comment on above: Interpretive Data: I f this glucose result represents a fasting glucose, interpretation should refer to the following reference range: 55-99 mg/dL Potassium [Moles/Vol] 4.0 mmol/L Normal 3.5 - 5.3 mmol/L [facility] Protein [Mass/Vol] 8.3 g/dL High 6.0 - 7.8 gm/dL [facility] Remisol Sodium [Moles/Vol] 136 mmol/L Normal 135 - 145 mmol/L [facility] Remisol Troponin I.cardiac [Mass/Vol] 4.70 pg/mL Low 10.10 - 27.10 pg/mL [facility] Remisol Comment on above: Interpretive Data: T he 95% CI (Confidence Interval) PPV (Positive Predictive Value) for myocardial infarction in females is 38 pg/mL, in males 51 pg/mL. The results should be used in conjunction with clinical conditions of myocardial infarction. (Access High Sensitivity Troponin I Instructions For Use, [employer] [place], May 2018) Urea nitrogen [Mass/Vol] 26 mg/dL High 5 - 21 mg/dL [facility] Remisol Urea nitrogen/Creatinine [Mass ratio] 22 mg/mg High 10 - 20 [facility] Remisol CHEMISTRYOrdered By: Yanet Davis on 09-08-2023 Natriuretic peptide B (Bld) [Mass/Vol] 21 pg/mL Normal 5 - 80 pg/mL [facility] HemeManSS COAGULATIONOrdered By: Dov Patel on 09-08-2023 aPTT Coag (PPP) [Time] 37.3 s High 25.1 - 36.5 second(s) [facility] Auto Coag Comment on [...] the same coagulation reagent and instrumentation as [facility]. Currently there are no coagulation studies available worldwide for children to 14 days, and no normal ranges. Heparin therapeutic range (represented by Anti-Factor Xa activity of 0.2 - 0.4 U/mL) corresponds to PTT of 56.6 - 109.0 sec. INR Coag (PPP) [Relative time] 1.2 {INR} Invalid Interpretation Code [facility] Auto Coag Comment on above: Interpretive Data: I NR results are specifically intended to assess patients stabilized on long-term Anticoagulation therapy suggested INR s Less Intensive Anticoagulation 2.0 3.0 Conventional Range 3.0 4.5 PT Coag (PPP) [Time] 13.7 s High 9.4 - 1 2.5 second(s) [facility] Auto Coag Comment on [...] the same coagulation reagent and instrumentation as [facility]. Currently there are no [...] REPORT Dictated: 09/08/2023 5:39 pm Satinder Peck MD Signed (Electronic Signature): 09/08/2023 5:39 pm Signed by: Satinder Peck MD Transcribed by: NOHEMY Technologist: NESTOR Technical Comments GFR (mL/min/1/73m2) n/a Contrast: Isovue 370 Contrast amount in ml's: 68 Normal [facility] Consent for Treatmenton Consent for Treatment [id number]# 1.00TIFF Normal [facility] Discharge Instructionson Discharge Instructions [id number]# 1.00TIFF Normal [facility] ED Clinical Summaryon 2022 ED Clinical Summary [place] [id number] ED Clinical Summary Person Information Name: SIS MOORE [facility] Age: 57 Years : 1965 Sex: Female Language: Monegasque PCP: BREA JJ CNP Marital Status: Visit Id: Visit Reason: [...] 09/08/2023 20:29:11 09/08/2023 20:29:11 09/08/2023 20:29:11 ADDRESS: [address] [place] [address] [address] [facility] [id number] PHYS DOC NOTES: MEDICAL INFORMATION: Prescriptions Given: [...] day. fluticasone nasal (fluticasone Nasal 0.05 mg/inh [place]) 2 Sprays Nasal Inhalation every day. each [...] Mouth every day. potassium chloride (Potassium Chloride (Jii-Negd-Wkc 10) 10 mEq oral tablet, extended release) pramipexole (pramipexole 0.5 mg oral tablet) 1 Tablets By Mouth 3 times a day. theophylline (theophylline 300 mg ER Tab) 1 Tablets By Mouth every 12 hours. trazodone (traZODONE 50 mg Tab) 1 Tablets By Mouth once a day (at bedtime). PATIENT EDUCATION INFORMATION: Instructions: Nonspecific Chest Pain, Adult Follow up: With: Address: When: BREA JJ [address] [place], [place] [phone] Business (1) In 3 days DIAGNOSIS: Acute chest pain Normal [facility] ED Note-Physicianon 09-08-20 ED Note-Physician Patient was [...] precautions. Patient was discharged stable condition. Normal [facility] Comment on above: Result Comment: Elec tronically Signed By: Moses Fischer DO\.marek\Date and Time Signed: 09/08/23 20:18 EST ED Note-Physician Basic Information Time Seen: Reginaldo Ramses 09/08/2023 16:33 Chief Complaint pt c\o R [...] History O (more content not included)... Normal [facility] Comment on above: Result Comment: Elec tronically [...] these instructions at home: Medicines ? Take evgl-tyf-tacnavo and prescription medicines only as told by [...] by your (more content not included)... Normal [facility] ED Patient Summaryon 023 ED Patient Summary [address] [address] Patient Discharge Instructions Person Information Name: SIS MOORE Age: 57 Years Arrival Date: 09/08/2023 16:32:21 Discharge Diagnosis: Acute chest pain Primary Care Physician: BREA JJ CNP Provider Information Primary Provider: Ramses Hair DO Advanced Ice Cream Dipper:None The exam and treatment you received in the Emergency Department were for an urgent problem and are not intended as complete care. It is important that you follow up with a doctor, nurse practitioner, or physician?s medical assistant dermatology for ongoing care. If your symptoms become worse or you do not improve as expected and you are unable to reach your usual health care provider, you should return to the Emergency Department. We are available 24 hours a day. MOORESIS Sarmiento has been given the following list of patient education materials, prescriptions and follow-up instructions: Follow-up Instructions: With: Address: When: BREA JJ [address], [place] [phone] Business (1) In 3 days In the event that this physician does not participate in your insurance network, please consult with your insurance company to find a nearby participating provider. Patient Education Materials: Nonspecific Chest Pain, Adult A MESSAGE TO ALL PATIENTS REGARDING OPIOIDS PRESCRIPTION OPIOIDS: WHAT YOU NEED TO KNOW Prescription opioids can be used to help relieve vhlmmevu-ec-iibxih pain and are often prescribed following a [...] be struggling with addiction, tell your health life care planner and ask for guidance or call SAMHSA?S National Helpline at 6-882-646-HELP. v Source: [place] (more content not included)... Normal [facility] EMS Documentationon 09-08-20 EMS Documentation Please click on link to see report Normal [facility] Comment on above: Result Comment: Miss duncan [...] 15.1 % High 10.9 - 14.2 % [facility] HemeAutoSS Hematocrit (Bld) [Volume fraction] 38.8 % Normal 34.0 - 46.0 % [facility] HemeAutoSS Hemoglobin (Bld) [Mass/Vol] 13.0 g/dL Normal 12.0 - 16.0 gm/dL [facility] HemeAutoSS MCH (RBC) [Entitic mass] 29.4 pg Normal 27.0 - 34.0 pg [facility] HemeAutoSS MCHC (RBC) [Mass/Vol] 33.5 g/dL Normal 31.4 - 36.0 gm/dL [facility] HemeAutoSS MCV (RBC) [Entitic vol] 87.6 fL Normal 80.0 - 100.0 fL [facility] HemeAutoSS Platelet mean volume (Bld) [Entitic vol] 10.7 fL Normal 6.4 - 10.8 fL [facility] HemeAutoSS Platelets (Bld) [#/Vol] 195.0 E9/L Normal 150.0 - 500.0 E9/L [facility] HemeAutoSS RBC (Bld) [#/Vol] 4.4 E12/L Normal 4.3 - 5.9 E12/L [facility] HemeAutoSS WBC corrected for nucl RBC Auto (Bld) [#/Vol] 8.8 E9/L Normal 4.0 - 11.0 E9/L [facility] HemeAutoSS Hep Func Panelon 09-08-2023 Bilirubin.indirect [Mass or moles/Vol] UTC Abnormal 0.1-0.9 [facility] Comment on above: Result Comment: Resu lt verified by Discern Rule. Performed result UTC (Unable to Calculate) was sent as an Alpha code due the inability to calculate a valid numeric value. Performed By: #### 2 335742, 8413557, 63282973, 41518120, 3301157, 5074041, 37268040, 92252651 #### [facility] [address] [place] [address] Albumin [Mass/Vol] 3.8 g/dL Normal 3.3-5.0 [facility] Comment on above: Performed By: #### 2 605450, 4134571, 61865586, 27506677, 6410882, 8717284, 13893888, 81603683 #### [facility] [address] [place] [address] Albumin/Globulin (S) [Mass conc ratio] 0.8 Low 1.1-2.2 [facility] Comment on above: Performed By: #### 2 884347, 9523615, 52213641, 71548309, 5790250, 0966540, 70409371, 10467554 #### [facility] [address] [place] [address] ALP [Catalytic activity/Vol] 68 Int._Unit/L Normal 21-98 [facility] Comment on above: Performed By: #### 2 226987, 9133848, 33357138, 66921409, 9077386, 0594748, 34576895, 41319549 #### [facility] [address] [place] [address] ALT No additional P-5'-P [Catalytic activity/Vol] 18 Int._Unit/L Normal 6-46 [facility] Comment on above: Performed By: #### 2 139841, 5754845, 06606070, 03127263, 6678537, 3960448, 44635883, 30063471 #### [facility] [address] [place] [address] AST [Catalytic activity/Vol] 20 Int._Unit/L Normal 5-43 [facility] Comment on above: Performed By: #### 2 780390, 7616933, 21259819, 37961944, 2945812, 1533435, 20754398, 67057559 #### [facility] [address] [place] [address] Bilirubin [Mass/Vol] 0.4 mg/dL Normal 0.0-1.1 [facility] Comment on above: Performed By: #### 2 187898, 8851710, 30709033, 91251830, 3280816, 4196756, 03475312, 40928933 #### [facility] [address] [place] [address] Globulin (S) [Mass/Vol] 4.5 g/dL High 1.4-4.0 [facility] Comment on above: Performed By: #### 2 179140, 5901676, 04919965, 00008933, 6266968, 2490350, 04873426, 17408900 #### [facility] [address] [place] [address] Protein [Mass/Vol] 8.3 g/dL High 6.0-7.8 [facility] Comment on above: Performed By: #### 2 140158, 5150900, 22113322, 40892986, 1021518, 5889032, 65095540, 76659117 #### [facility] [address] [place] [address] Bilirubin.direct [Mass/Vol] mg/dL Normal 0.1-0.4 [facility] Comment on above: Performed By: #### 2 888675, 8094917, 58773728, 93451709, 4478615, 6755424, 64598488, 68361285 #### [facility] [address] [place] [address] Monitor Recordon 09-08-2023 Monitor Record [id number]# 1.00TIFF Normal [facility] Monitor Record [id number]# 1.00TIFF Normal [facility] PT & PTTon 09-08-2023 aPTT Coag (PPP) [Time] 37.3 second(s) High 25.1-36.5 [facility] Comment on above: Result Comment: Para meter [...] the same coagulation reagent and instrumentation as [facility]. Currently there are no coagulation studies available worldwide for children to 14 days, and no normal ranges. Heparin therapeutic range (represented by Anti-Factor Xa activity of 0.2 - 0.4 U/mL) corresponds to PTT of 56.6 - 109.0 sec. Performed By: #### 2 770344, 7523449, 73245905, 55373335, 2128998, 5416870, 24724624, 07171947 ####[facility] [address] [place] [address] INR Coag (PPP) [Relative time] 1.2 {INR} Invalid Interpretation Code [facility] Comment on above: Result Comment: INR results are specifically intended to assess patients stabilized on long-term Anticoagulation therapy suggested INR?s ?Less Intensive Anticoagulation? 2.0 ? 3.0 Conventional Range 3.0 ? 4.5 Performed By: #### 2 154181, 4873994, 26881239, 29923380, 9373250, 1348532, 82776263, 77889225 ####[facility] [address] [place] [address] PT Coag (PPP) [Time] 13.7 second(s) High 9.4-12.5 [facility] Comment on above: Result Comment: 15 d [...] the same coagulation reagent and instrumentation as [facility]. Currently there are no coagulation studies available worldwide for children to 14 days, and no normal ranges. Performed By: #### 2 470544, 8984483, 82869265, 54632688, 6998514, 3061429, 51037263, 99486266 ####[facility] [address] [place] [address] Troponin 0 Hr.on 09-08-2023 Troponin I.cardiac [Mass/Vol] 4.70 pg/mL Low 10.10-27.10 [facility] Comment on above: Result Comment: The 95% CI (Confidence Interval) PPV (Positive Predictive Value) for myocardial infarction in females is 38 pg/mL, in males 51 pg/mL. The results should be used in conjunction with clinical conditions of myocardial infarction. (Access High Sensitivity Troponin I Instructions For Use, [employer], May 2018) Performed By: #### 2 802923, 1224022, 78439644, 62941659, 6979773, 0034894, 73877692, 71171048 #### [facility] [address] [place] [address] Troponin 3 Hr.on 09-08-2023 Troponin I.cardiac [Mass/Vol] 4.20 pg/mL Low 10.10-27.10 [facility] Comment on above: Result Comment: The 95% CI (Confidence Interval) PPV (Positive Predictive Value) for myocardial infarction in females is 38 pg/mL, in males 51 pg/mL. The results should be used in conjunction with clinical conditions of myocardial infarction. (Access High Sensitivity Troponin I Instructions For Use, [employer], May 2018) Performed By: #### 1 [id number] ####[facility] [address] [place] [address] eGFRon 09-08-2023 GFR/1.73 sq M.predicted among non-blacks MDRD (S/P/Bld) [Vol rate/Area] 52 mL/min/1.73 m2 Low >=59 [facility] Comment on above: Order Comment: Order added by Discern Expert. Result Comment: Oil Mixer nita kidney disease could be indicated at eGFR's of less than 60 mL/min/1.73m2. Kidney failure is indicated at less than 15 mL/min/1.73m2. Performed By: #### 2 722797, 1669097, 77540365, 05335604, 8769184, 6052476, 55127823, 20741839 #### [facility] [address] [place] [address] Office Visiton 07-20-2023 Follow-up visit [id number] Sis Moore 1965 F Date Provider Department Center 07/20/2023 [address], NISHAAB CARD [facility] Family History Problem Relation Age of Onset Coronary artery disease Other Pulmonary embolism Other Deep vein thrombosis Other Family Status - Relation Status Age at Other Level of Service:[address] [place] OFFICE/OUTPATIENT ESTABLISHED LOW MDM 20-29 MIN Normal [facility] Consent for Treatmenton 07-01 Consent for Treatment [id number] .00CD:127 Normal [facility] Oncology Noteon 07-19-2023 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 Pt started in May. Normal [facility] Comment on above: Result Comment: Elec tronically [...] was referred to our hematology office at [facility] for Thrombophilia work up and decision about duration of anticoagulation for the acute PE diagnosed on . She is a 57-year-old female cigarette smoker with history of hypertension, aox-isnjmyk-bssthdotx diabetes mellitus, obesity, chronic hypoxic respiratory failure on 3 L home oxygen, and depression who presented on 06/16/23 to [facility] ER with complaints of [...] puff(s), Inhalation, BID fluticasone Nasal 0.05 mg/inh [place] 2 spray(s), Nasal, Daily furosemide 20 mg Tab 20 mg = 1 tab(s), Oral, Daily gabapentin 300 mg Cap 300 mg = 1 cap(s), Oral, BID hydrochlorothiazide-l isinopril 25 mg-20 mg Tab 1 tab(s), Oral, Daily lamotrigine 25 mg Tab 25 mg = 1 tab(s), Oral, BID pioglitazone 15 mg Tab 15 mg = 1 tab(s), Oral, Daily Potassium Chloride (Siw-Mnel-Ouq 10) 10 mEq oral tablet, extended release [...] list: All Problems Smoker / SNOMED CT 132540473 / Confirmed Added secondary to documentation in Social History. Histories Past Medical History: No active or resolved past medical history items have been selected or recorded. Family History: History is unknown. Procedure history: delivery (SNOMED CT 5668162492) on 05/05/1987 at 21 Years. delivery (SNOMED CT 0416456027) on 06/20/1984 at 18 Years. Cyst (SNOMED CT 1212738410). Comments: 06/28/2023 11:00 EDT - Prisca Montoya A Removal of cyst of right foot. Knee (SNOMED CT 095132384). Comments: 06/28/2023 11:01 BEBET - Prisca Montoya surgery Social History Social & Psychosocial Habits Alcohol Comment: denies - 06/16/2023 16:10 - Kezia Catalan Substance Abuse Comment: den - 06/16/2023 16:10 - Aundrea (more content not included)... Normal [facility] .VIPER VENOM MIXING STUDYon 07-08-2023 dRVVT w 1:1 PNP Coag (PPP) [Time] 47.4 second(s) High 0.0-40.4 [facility] Comment on above: Result Comment: Perf ormed at: [facility] [address] [id number] MD Tony Laird Performed By: #### 2 929944, 1690784, 95097933, 42799389, 5880370, 7226650, 76535065, 10554763 #### [facility] [address] [place] [address] MARY KATE ABS Ig G,M,Aon 3 Cardiolipin IgA IA Qn (S) <9 Invalid Interpretation Code 0-11 [facility] Comment on above: Result Comment: Nega tive: <12 Indeterminate: 12 - 20 Low-Med Positive: >20 - 80 High Positive: >80 Performed at: [facility] [address] [id number] PhD Matthew Funez Performed By: #### 1 [id number] #### [facility] [address] [place] [address] Cardiolipin IgG IA Qn (S) <9 Invalid Interpretation Code 0-14 [facility] Comment on above: Result Comment: Nega tive: <15 Indeterminate: 15 - 20 Low-Med Positive: >20 - 80 High Positive: >80 Performed By: #### 1 [id number] #### [facility] [address] [place] [address] Cardiolipin IgM IA Qn (S) <9 Invalid Interpretation Code 0-12 [facility] Comment on above: Result Comment: Nega tive: <13 Indeterminate: 13 - 20 Low-Med Positive: >20 - 80 High Positive: >80 Performed By: #### 1 [id number] #### [facility] [address] [place] [address] Beta-2 Glycoprot.i Aon 07-08 Beta 2 glycoprotein 1 IgA Qn (S) 19 Invalid Interpretation Code 0-25 [facility] Comment on above: Result Comment: The reference interval reflects a 3SD or 99th percentile interval, which is thought to represent a potentially clinically significant result in accordance with the International Consensus Statement on the classification criteria for definitive antiphospholipid syndrome (APS). J Thromb Haem 2006;4:295-306. Performed By: #### 2 470866, 3125696, 47824885, 91945662, 5659185, 8302418, 22228263, 22565078 #### [facility] [address] [place] [address] Beta 2 glycoprotein 1 IgG Qn (S) <9 Invalid Interpretation Code 0-20 [facility] Comment on above: Result Comment: The reference interval reflects a 3SD or 99th percentile interval, which is thought to represent a potentially clinically significant result in accordance with the International Consensus Statement on the classification criteria for definitive antiphospholipid syndrome (APS). J Thromb Haem 2006;4:295-306. Performed By: #### 2 722802, 8951529, 25128632, 95451421, 8915373, 0216855, 19417090, 55675890 #### [facility] [address] [place] [address] Beta 2 glycoprotein 1 IgM Qn (S) <9 Invalid Interpretation Code 0-32 [facility] Comment on above: Result Comment: The reference interval reflects a 3SD or 99th percentile interval, which is thought to represent a potentially clinically significant result in accordance with the International Consensus Statement on the classification criteria for definitive antiphospholipid syndrome (APS). J Thromb Haem 2006;4:295-306. Performed at: [facility] [id number] MD Tony Laird Performed By: #### 2 051619, 2975427, 67760354, 87673500, 6599562, 5858730, 97011824, 29522019 #### [facility] [address] [place] [address] Factor II, DNA Analysison F2 gene c.07936R>A genotype [employer] (Bld/Tiss) Comment Invalid Interpretation Code [facility] Comment on above: Result Comment: Resu lt: [...] the F2 gene and a c.1601G>A (p. Jee377Nup) variant in the F5 gene (commonly referred to as Factor V Leiden) have an approximately 20- fold increased risk for venous thromboembolism. Risks are likely to be even higher in more complex genotype combinations involving the F2 c.*97G>A variant and Factor V Leiden (PMID: 93652296). Additional risk factors include but are not [...] health care providers to discuss results at [phone] ([phone]). Test Details: Variant analyzed: c.*97G>A, previously referred to as X93707W Methods/Limitations: DNA analysis of the F2 gene [...] developed and its performance characteristics determined by [employer]. It has not been cleared or approved by the Food and Drug Administration. References: Aries S, Enma BEJARANO, Mauricio R, Dre WW, Gabriel JH; ACMG Professional Practice and Guidelines Committee. Addendum: [employer] consensus statement on factor V Leiden mutation testing. [employer]. 2020Jan 02. doi: 10.1038/y46347-476-91448-b. PMID: 44697337. Yarely CROCKETT. Prothrombin Thrombophilia. 2005May 24 [Updated 2020Dec 04]. In: Allen MP, Tim HH, Renee RA, et al., editors. Aren(R) [Internet]. [place] ([place]): [facility]; 8665-9114. Available from: https://www.ncbi.nlm.nih.gov/books/CHK4272/ Real S, Enma BEJARANO, Jonel X, Gerry B, Santi EB, Amparo P, Humberto CS; [employer] Laboratory Supervisor Conditioning Yard Committee. Venous thromboembolism laboratory testing (factor V Leiden and factor II c.*97G>A), 2018 update: a technical standard of the [employer] and [employer] (ACMG). [employer]. 2018 Sep;20(12):1516-1886. doi: 10.1038/f36241-543-4133-a. Epub 2017Aug 04. PMID: 24615145. Performed By: #### 1 [id number] #### [place] [address] Factor V Leidenon 07-08-2023 F5 gene p.Sbr621Sah [employer] (Bld/Tiss) Comment Invalid Interpretation Code [facility] Comment on above: Result Comment: Resu lt: c.1601G>A (p.Mnn675Qpl) - Not Detected This result is not associated with an increased risk for venous thromboembolism. See Additional Clinical Information and Comments. Additional Clinical Information: Venous thromboembolism is a multifactorial disease influenced by genetic, environmental, and circumstantial risk factors. The c.1601G>A (p. Rjp338Pxf) variant in the F5 gene, commonly referred [...] c.*97G>A variant and Factor V Leiden (PMID: 96841723). Additional risk factors include but are not [...] health care providers to discuss results at [phone] ([phone]). Test Details: Variant Analyzed: c.1601G>A (p. Bmc226Lnl), referred to as Factor V Leiden Methods/Limitations: [...] developed and its performance characteristics determined by [employer]. It has not been cleared or approved by the Food and Drug Administration. References: Aries Sarmiento, Enma BEJARANO, Mauricio R, Dre WW, Gabriel JH; A[employer] Professional Practice and Guidelines Committee. Addendum: [employer] consensus statement on factor V Leiden mutation testing. [employer]. 2020Jan 02. doi: 10.1038/x58174-860-15021-a. PMID: 40100486. Yarely CROCKETT. Factor V Leiden Thrombophilia. 1998March 13 (Updated 2017Nov 03). In: Allen MP, Tim HH, Renee RA, et al., editors. Aren(R) (Internet). [place]): [facility]; 3600-7466. Available from: https://www.ncbi.nlm.nih.gov/books/TNE2610/ Real Sarmiento, Enma BEJARANO, Jonel X, Gerry B, Santi EB, Amparo P, Humberto CS; [employer] Laboratory Supervisor Conditioning [employer] Committee. Venous thromboembolism laboratory testing (factor V Leiden and factor II c.*97G>A), 2018 update: a technical standard of the [employer] (ACMG). [employer] Med. 2018 Sep;20(12):7045-6222. doi: 10.1038/m23129-912-4876-a. Epub 2017Aug 04. PMID: [id number]. Performed By: #### 2 547677, 3714892, 13424678, 68429583, 9682718, 5561376, 89304192, 53717450 #### [facility] [address] [place] [address] Lupus Anticoagon 07-08-2023 aPTT.lupus sensitive Coag (PPP) [Time] 33.8 second(s) Invalid Interpretation Code 0.0-43.5 [facility] Comment on above: Performed By: #### 2 617429, 4333282, 62174642, 24370241, 2165368, 7328051, 29760308, 63755826 #### [facility] [address] [place] [address] dRVVT Coag (PPP) [Time] 57.5 second(s) High 0.0-47.0 [facility] Comment on above: Result Comment: Perf ormed at: [address] [id number] MD Tony Laird Performed By: #### 2 759368, 6177050, 40638096, 37069066, 5843602, 9634229, 46547007, 00279757 #### [facility] [address] [place] [address] Lupus anticoagulant two screening tests W Reflex Coag (PPP) [Interp] Comment: Invalid Interpretation Code [facility] Comment on above: Result Comment: No l upus anticoagulant was detected. These results are consistent with specific inhibitors to one or more common pathway factors (X, V, II or fibrinogen). Performed at: [address] [id number] MD Tony Laird Performed By: #### 2 989205, 0725890, 55353176, 31256648, 1145605, 6148906, 32432283, 06894083 #### [facility] [address] [place] [address] dRVVT CONFIRMon 07-08-2023 dRVVT/dRVVT.excess phospholipid Coag (PPP) [Ratio] 1.0 ratio Invalid Interpretation Code 0.8-1.2 [facility] Comment on above: Result Comment: Perf ormed at: [address] [id number] MD Tony Laird Performed By: #### 2 674647, 5763427, 05589533, 15218238, 7755526, 9026516, 02730403, 69410146 #### [facility] [address] [place] [address] Consenton 07-07-2023 Consent [id number]# 1.00CD:127 Normal [facility] Miscellaneous-LCon 07-01 Lab Miscellaneous COMMENT Invalid Interpretation Code [facility] Comment on above: Result Comment: Test Ordered: [id number] Protein S-Functional Protein S-Functional 98 % BN Reference Range: 63-140 Protein S activity may be falsely increased (masking an abnormal, low result) in patients receiving direct Xa inhibitor (e.g., rivaroxaban, apixaban, edoxaban) or a direct thrombin inhibitor (e.g., dabigatran) anticoagulant treatment due to assay interference by these drugs. Performed at: [facility] [id number] PhD Matthew Funez Performed By: #### 1 [id number] #### [facility] [address] [place] [address] Protein S-antigenon 07-01-20 23 Protein S Ag actual/normal IA (PPP) [Relative mass conc] 99 % Invalid Interpretation Code 60-150 [facility] Comment on above: Result Comment: This test was developed and its performance characteristics determined by [employer]. It has not been cleared or approved by the Food and Drug Administration. Performed By: #### 2 602046, 8564776, 70229339, 38644609, 9466388, 5793209, 53014541, 03418139 #### [facility] [address] [place] [address] Protein S Free Ag actual/normal IA (PPP) [Relative mass conc] 93 % Invalid Interpretation Code 61-136 [facility] Comment on above: Result Comment: Perf ormed at: [address] [id number] MD Tony Laird Performed By: #### 2 692546, 5644413, 02158515, 42833917, 4254802, 5864641, 43911507, 35305563 #### [facility] [address] [place] [address] Lab Miscellaneous-LCon 06-30 Lab Miscellaneous COMMENT Invalid Interpretation Code [facility] Comment on above: Result Comment: Test Ordered: [id number] Antithrombin Activity Antithrombin Activity 146 [H ] % BN Reference Range: 75-135 An elevated antithrombin activity is of no known clinical significance. Direct Xa inhibitor anticoagulants such as rivaroxaban, apixaban and edoxaban will lead to spuriously elevated antithrombin activity levels possibly masking a deficiency. Performed at: [facility] [address], [place] [id number] PhD Matthew Funez Performed By: #### 2 298697, 4812830, 91029814, 80839679, 2823285, 4286684, 61718685, 93280156 #### [facility] [address] [place] [address] Result Comment: Test Ordered: [id number] Protein C-Functional Protein C-Functional 140 % BN Reference Range: 73-180 Performed at: [facility] [id number] PhD Matthew Funez Auto Diffon 06-28-2023 Basophils/100 WBC (Bld) 0.6 % Normal 0.0-2.0 [facility] Comment on above: Order Comment: order able test Performed By: #### 1 [id number] #### [facility] [address] [place] [address] Basophils/Leukocytes Auto (Bld) [Pure # fraction] 0.0 E9/L Normal 0.0-0.2 [facility] Comment on above: Order Comment: order able test Performed By: #### 1 [id number] #### [facility] [address] [place] [address] Eosinophils/100 WBC (Bld) 0.7 % Normal 0.0-8.0 [facility] Comment on above: Order Comment: order able test Performed By: #### 1 [id number] #### [facility] [address] [place] [address] Eosinophils/Leukocytes Auto (Bld) [Pure # fraction] 0.1 E9/L Normal 0.0-0.5 [facility] Comment on above: Order Comment: order able test Performed By: #### 1 [id number] #### [facility] [address] [place] [address] Lymphocytes/100 WBC (Bld) 12.9 % Low 14.0-50.0 [facility] Comment on above: Order Comment: order able test Performed By: #### 1 [id number] #### [facility] [address] [place] [address] Lymphocytes/Leukocytes Auto (Bld) [Pure # fraction] 1.0 E9/L Normal 1.0-4.0 [facility] Comment on above: Order Comment: order able test Performed By: #### 1 [id number] #### [facility] [address] [place] [address] Monocytes/100 WBC (Bld) 6.8 % Normal 4.0-14.0 [facility] Comment on above: Order Comment: order able test Performed By: #### 1 [id number] #### [facility] [address] [place] [address] Monocytes/Leukocytes Auto (Bld) [Pure # fraction] 0.5 E9/L Normal 0.2-1.0 [facility] Comment on above: Order Comment: order able test Performed By: #### 1 [id number] #### [facility] [address] [place] [address] Neutrophils/100 WBC (Bld) 79.0 % High 36.0-75.0 [facility] Comment on above: Order Comment: order able test Performed By: #### 1 [id number] #### [facility] [address] [place] [address] Neutrophils/Leukocytes Auto (Bld) [Pure # fraction] 6.1 E9/L Normal 2.0-7.5 [facility] Comment on above: Order Comment: order able test Performed By: #### 1 [id number] #### [facility] [address] [place] [address] CBC w/ Auto Diffon 3 Erythrocyte distribution width (RBC) [Ratio] 14.7 % High 10.9-14.2 [facility] Comment on above: Performed By: #### 1 [id number] #### [facility] [address] [place] [address] Hematocrit (Bld) [Volume fraction] 38.9 % Normal 34.0-46.0 [facility] Comment on above: Performed By: #### 1 [id number] #### [facility] [address] [place] [address] Hemoglobin (Bld) [Mass/Vol] 13.1 g/dL Normal 12.0-16.0 [facility] Comment on above: Performed By: #### 1 [id number] #### [facility] [address] [place] [address] MCH (RBC) [Entitic mass] 29.4 pg Normal 27.0-34.0 [facility] Comment on above: Performed By: #### 1 [id number] #### [facility] [address] [place] [address] MCHC (RBC) [Mass/Vol] 33.6 g/dL Normal 31.4-36.0 [facility] Comment on above: Performed By: #### 1 [id number] #### [facility] [address] [place] [address] MCV (RBC) [Entitic vol] 87.4 fL Normal 80.0-100.0 [facility] Comment on above: Performed By: #### 1 [id number] #### [facility] [address] [place] [address] Platelet mean volume (Bld) [Entitic vol] 10.7 fL Normal 6.4-10.8 [facility] Comment on above: Performed By: #### 1 [id number] #### [facility] [address] [place] [address] Platelets (Bld) [#/Vol] 183.0 E9/L Normal 150.0-500.0 [facility] Comment on above: Performed By: #### 1 [id number] #### [facility] [address] [place] [address] RBC (Bld) [#/Vol] 4.5 E12/L Normal 4.3-5.9 [facility] Comment on above: Performed By: #### 1 [id number] #### [facility] [address] [place] [address] WBC corrected for nucl RBC Auto (Bld) [#/Vol] 7.7 E9/L Normal 4.0-11.0 [facility] Comment on above: Performed By: #### 1 [id number] #### [facility] [address] [place] [address] CMPon 06-28-2023 Albumin [Mass/Vol] 3.9 g/dL Normal 3.3-5.0 [facility] Comment on above: Performed By: #### 1 [id number] #### [facility] [address] [address] Albumin/Globulin (S) [Mass conc ratio] 0.9 Low 1.1-2.2 [facility] Comment on above: Performed By: #### 1 [id number] #### [facility] [address] [place] [address] ALP [Catalytic activity/Vol] 69 Int._Unit/L Normal 21-98 [facility] Comment on above: Performed By: #### 1 [id number] #### [facility] [address] [place] [address] ALT No additional P-5'-P [Catalytic activity/Vol] 19 Int._Unit/L Normal 6-46 [facility] Comment on above: Performed By: #### 1 [id number] #### [facility] [address] [place] [address] Anion gap [Moles/Vol] 13 mmol/L Normal 6-16 [facility] Comment on above: Performed By: #### 1 [id number] #### [facility] [address] [place] [address] AST [Catalytic activity/Vol] 22 Int._Unit/L Normal 5-43 [facility] Comment on above: Performed By: #### 1 [id number] #### [facility] [address] [place] [address] Bilirubin [Mass/Vol] 0.4 mg/dL Normal 0.0-1.1 [facility] Comment on above: Performed By: #### 1 [id number] #### [facility] [address] [place] [address] Calcium [Mass/Vol] 9.8 mg/dL Normal 8.9-11.1 [facility] Comment on above: Performed By: #### 1 [id number] #### [facility] [address] [place] [address] Chloride [Moles/Vol] 98 mmol/L Low 101-111 [facility] Comment on above: Performed By: #### 1 [id number] #### [facility] [address] [place] [address] CO2 [Moles/Vol] 29 mmol/L Normal 21-31 [facility] Comment on above: Performed By: #### 1 [id number] #### [facility] [address] [place] [address] Creatinine [Mass/Vol] 0.9 mg/dL Normal 0.5-1.3 [facility] Comment on above: Performed By: #### 1 [id number] #### [facility] [address] [place] [address] Globulin (S) [Mass/Vol] 4.3 g/dL High 1.4-4.0 [facility] Comment on above: Performed By: #### 1 [id number] #### [facility] [address] [place] [address] Glucose [Mass/Vol] 155 mg/dL Normal 55-199 [facility] Comment on above: Result Comment: If t his glucose result represents a fasting glucose, interpretation should refer to the following reference range: 55-99 mg/dL Performed By: #### 1 [id number] #### [facility] [address] [place] [address] Potassium [Moles/Vol] 3.9 mmol/L Normal 3.5-5.3 [facility] Comment on above: Performed By: #### 1 [id number] #### [facility] [address] [place] [address] Protein [Mass/Vol] 8.2 g/dL High 6.0-7.8 [facility] Comment on above: Performed By: #### 1 [id number] #### [facility] [address] [place] [address] Sodium [Moles/Vol] 136 mmol/L Normal 135-145 [facility] Comment on above: Performed By: #### 1 [id number] #### [facility] [address] [place] [address] Urea nitrogen [Mass/Vol] 22 mg/dL High 5-21 [facility] Comment on above: Performed By: #### 1 [id number] #### [facility] [address] [place] [address] Urea nitrogen/Creatinine [Mass ratio] 24 No Units High 10-20 [facility] Comment on above: Performed By: #### 1 [id number] #### [facility] [address] [place] [address] Consent for Treatmenton 06-01 Consent for Treatment [id number] .00CD:127 Normal [facility] Consent for Treatment [id number]#1 .00CD:127 Normal [facility] D-Dimeron 06-28-2023 Fibrin D-dimer FEU (PPP) [Mass/Vol] 392 CD:[id number] Normal 215-500 [facility] Comment on above: Result Comment: This assay [...] infections Liver cirrhosis Performed By: #### 1 [id number] #### [facility] [address] [place] [address] Lab Miscellaneous-LCon 06-28 Lab Miscellaneous orderable test Invalid Interpretation Code [facility] Comment on above: Order Comment: order able test Performed By: #### 1 [id number] #### [facility] [address] [place] [address] Test Code 384696 Invalid Interpretation Code [facility] Comment on above: Order Comment: order able test Performed By: #### 1 [id number] #### [facility] [address] [place] [address] Test Code 110294 Invalid Interpretation Code [facility] Comment on above: Performed By: #### 1 [id number] #### [facility] [address] [place] [address] Test Code 600910 Invalid Interpretation Code [facility] Comment on above: Performed By: #### 2 028786, 1750323, 60297423, 39398071, 5384321, 8030655, 57766456, 24967940 #### [facility] [address] [place] [address] Test Code 031427 Invalid Interpretation Code [facility] Comment on above: Performed By: #### 2 750195, 5133190, 24501403, 51763360, 2343490, 5901489, 31134197, 25410797 #### [facility] [address] [place] [address] Test Name Prot s, ant Invalid Interpretation Code [facility] Comment on above: Order Comment: order able test Performed By: #### 1 [id number] #### [facility] [address] [place] [address] Test Name Prot S, func Invalid Interpretation Code [facility] Comment on above: Performed By: #### 1 [id number] #### [facility] [address] [place] [address] Test Name AntiThromb III Invalid Interpretation Code [facility] Comment on above: Performed By: #### 2 224400, 3915390, 76859906, 62414851, 1741823, 7735694, 55184611, 17599610 #### [facility] [address] [place] [address] Test Name Prot C, func Invalid Interpretation Code [facility] Comment on above: Performed By: #### 2 650011, 9329705, 68505053, 36862999, 6691937, 5897506, 37668968, 15562222 #### [facility] [address] [place] [address] Oncology Noteon 06-28-2023 Oncology Note Oncology [employer] Office Visit/Treatment Note Current Patient Status/Reason: Pt [...] concerns to me at this time. Normal [facility] Comment on above: Result Comment: Elec tronically [...] was referred to our hematology office at [facility] for Thrombophilia work up and decision about duration of anticoagulation for the acute PE diagnosed on . She is a 57-year-old female cigarette smoker with history of hypertension, ilr-lbnkssu-vbfitnqyk diabetes mellitus, obesity, chronic hypoxic respiratory failure on 3 L home oxygen, and depression who presented on 06/16/23 to [facility] ER with complaints of [...] puff(s), Inhalation, BID fluticasone Nasal 0.05 mg/inh [place] 2 spray(s), Nasal, Daily furosemide 20 mg Tab 20 mg = 1 tab(s), Oral, Daily gabapentin 300 mg Cap 300 mg = 1 cap(s), Oral, BID hydrochlorothiazide-l isinopril 25 mg-20 mg Tab 1 tab(s), Oral, Daily lamotrigine 25 mg Tab 25 mg = 1 tab(s), Oral, BID pioglitazone 15 mg Tab 15 mg = 1 tab(s), Oral, Daily Potassium Chloride (Xdt-Jxcg-Mqq 10) 10 mEq oral tablet, extended release [...] list: All Problems Smoker / SNOMED CT 373407092 / Confirmed Added secondary to documentation in Social History. Histories Past Medical History: No active or resolved past medical history items have been selected or recorded. Family History: History is unknown. Procedure history: delivery (SNOMED CT 6290288780) on 05/05/1987 at 21 Years. delivery (SNOMED CT 8099813805) on 06/20/1984 at 18 Years. Cyst (SNOMED CT 3206739550). Comments: 06/28/2023 11:00 EDT - Prisca Montoya Removal of cyst of right foot. Knee (SNOMED CT 082672273). Comments: 06/28/2023 11:01 EDT - Prisca Montoya [...] Rate 16 (more content not included)... Normal [facility] eGFRon 06-28-2023 GFR/1.73 sq M.predicted among non-blacks MDRD (S/P/Bld) [Vol rate/Area] 74 mL/min/1.73 m2 Normal >=59 [facility] Comment on above: Order Comment: order able test Result Comment: Oil Mixer nita kidney disease could be indicated at eGFR's of less than 60 mL/min/1.73m2. Kidney failure is indicated at less than 15 mL/min/1.73m2. Performed By: #### 1 [id number] #### [facility] [address] [place] [address] Discharge Instructionson Discharge Instructions [id number]# 1.00CD:127 Normal [facility] CHEMISTRYOrdered By: Lab ROP User on 06-17-2023 Glucose [Mass/Vol] 109 mg/dL High 55 - 99 mg/dL [facility] POC Subsection Comment on above: Result Comment: Rafaela garzon RN/ POC Device SN [id number] Invalid Interpretation Code [facility] POC Subsection POC User ID [id number] Invalid Interpretation Code [facility] POC Subsection POC Username BRENDA KHAN Invalid Interpretation Code [facility] POC Subsection Glucose [Mass/Vol] 133 mg/dL High 55 - 99 mg/dL [facility] POC Subsection Comment on above: Result Comment: Rafaela garzon RN/ POC Device SN [id number] Invalid Interpretation Code [facility] POC Subsection POC User ID [id number] Invalid Interpretation Code [facility] POC Subsection POC Username FAVIOLA MURO Invalid Interpretation Code [facility] POC Subsection Glucose [Mass/Vol] 109 mg/dL High 55 - 99 mg/dL [facility] POC Subsection Comment on above: Result Comment: Rafaela garzon RN/ POC Device SN [id number] Invalid Interpretation Code [facility] POC Subsection POC User ID [id number] Invalid Interpretation Code [facility] POC Subsection POC Username BRENDA KHAN Invalid Interpretation Code [facility] POC Subsection CHEMISTRYOrdered By: Kimberley Freeman on 06-17-2023 HbA1c (Bld) [Mass fraction] 5.7 % Normal <=5.9% [facility] ChemAutoSS CHEMISTRYOrdered By: SYSTEM SYSTEM on 06-17-2023 Troponin I.cardiac [Mass/Vol] 5.20 pg/mL Low 10.10 - 27.10 pg/mL [facility] Remisol Capillary Glucose POCon 05-31 Glucose [Mass/Vol] 109 mg/dL High 55-99 [facility] Comment on above: Result Comment: Rafaela VELASQUEZ Performed By: #### 2 [id number] ####[facility] [address] [place] [address] Glucose [Mass/Vol] 133 mg/dL High 55-99 [facility] Comment on above: Result Comment: Rafaela VELASQUEZ Performed By: #### 2 870790, 0021427, 77507351, 03146103, 8903535, 5436328, 10748989, 34463571 #### [facility] [address] [place] [address] Glucose [Mass/Vol] 109 mg/dL High 55-99 [facility] Comment on above: Result Comment: Rafaela garzon RN/ Performed By: #### 2 985328, 7864055, 70411186, 58634246, 2906517, 1066859, 37821397, 70659961 #### [facility] [address] [place] [address] Discharge Note-Nursingon Discharge Note-Nursing SIS MOORE :1965 Visit Date:06/16/2023 Inpatient Discharge Instructions Your Care Team Admitting Physician - JANETTE BOOTHE, Nimcofo Reason for Your Visit Right after I [...] care physician. This Is Your Medications List [facility] Prescription (ATORVASTATIN CALCIUM 40 MG TABLET) albuterol (Ventolin HFA 90 mcg/inh Aerosol-Adpt) albuterol-ipratropium (albuterol-ipratropiu m Inh Debby 3 mL UD) apixaban (Eliquis 5 mg oral tablet) aspirin (Aspirin Low Dose 81 mg oral enteric coated tablet) busPIRone (busPIRone 15 mg Tab) duloxetine (duloxetine 60 mg oral delayed release capsule) fluticasone (Flovent HFA 110 Aerosol) fluticasone nasal (fluticasone Nasal 0.05 mg/inh [place]) formoterol-glycopyrro late (Bevespi Aerosphere 9 mcg-4.8 mcg/inh inhalation aerosol) furosemide (furosemide 20 mg Tab) gabapentin (gabapentin 300 mg Cap) hydrochlorothiazide-l isinopril (hydrochlorothiazide- lisinopril 25 mg-20 mg Tab) lamotrigine (lamotrigine 25 mg Tab) multivitamin (Daily Ahrvinder oral tablet) pioglitazone (pioglitazone 15 mg Tab) potassium chloride (Potassium Chloride (Qaq-Dnau-Dcz 10) 10 mEq oral tablet, extended release) [...] Christian When: 06/28/2023 11:00 AM EDT Where: [facility] [address] [place] [address] [place] [address]- Follow Up with BREA JJ When: Within 1 week Comments: A voice message is left with this office with your information so they can call you for a follow up appiontment. Please call them if you do not hear from them in a few days. Thank you. Where: [address] [place] [address] [phone] Business (1) Medications What How Much When Why Instructions Next Dose New apixaban (Eliquis 5 mg oral tablet) See instructions Acute pulmonary embolism 2 tab(s) Oral BID x 6 days then 1 tab oral BID x 30 days Printed Prescription 06/17 @ 9 PM 2 tablets (twice daily) 06/23: Start 1 tablet twice daily Unchanged albuterol (Ventolin HFA 90 mcg/ inh Aerosol-Adpt) 1 Puffs Inhalation 4 times a day as needed for for wheezing NEEDED FOR WHEEZING Unchanged albuterol-ipratropium (albuterol-ipratropiu m Inh Debby 3 mL UD) 3 Milliliter Inhalation 4 times a day 06/17 @ 9 PM Unchanged aspirin (Aspirin Low Dose 81 mg oral enteric coated tablet) Every day 06/18 AM Unchanged busPIRone (busPIRone 15 mg Tab) 1 Tablets By Mouth 3 times a day 06/17 PM Unchanged duloxetine (duloxetine 60 mg oral delayed release capsule) Every day 06/18 AM Unchanged fluticasone (Flovent HFA 110 Aerosol) 2 Puffs Inhalation 2 times a day 06/17 @ PM Unchanged fluticasone nasal (fluticasone Nasal 0.05 mg/ inh [place]) 2 Sprays Nasal Inhalation Every day each nostril 06/18 AM Unchanged formoterol-glycopyrro late (Bevespi Aerosphere 9 mcg-4.8 mcg/ inh inhalation aerosol) 2 Puffs Inhalation 2 times a day 06/17 PM Unchanged furosemide (furosemide 20 mg Tab) [...] times a day 06/17 @ PM Unchanged Misc Prescription (ATORVASTATIN CALCIUM 40 MG TABLET) 0 Every day 06/18 AM Unchanged multivitamin (Daily Harvinder oral tablet) 1 Tablets By Mouth Every day 06/18 (more content not included)... Normal [facility] [id number] 06-17-2023 HbA1c (Bld) [Mass fraction] 5.7 % Normal <=5.9 [facility] Comment on above: Performed By: #### 2 420597, 9385009, 37715146, 14929511, 3930037, 4823669, 55146831, 08283081 #### [facility] [address] [place] [address] Inpatient Clinical Summaryon 06-17-2023 Inpatient Clinical Summary [address] [address] Clinical Summary Person Information: Name: SIS MOORE Age: 57 Years : 1965 Sex: Female PCP: BREA JJ CNP Marital Status: Race: White Ethnicity: Non- or Language: Monegasque Visit Id: Visit Reason: Chest pain; MID STERNUM PAIN Speciality: Acuity: Enc Type: Observation Med Service: Medical Arrival: 06/16/2023 15:45:03 Discharge: Dispo Type: Admitted as IP to this Hosp Address: [address] [place] [address] [address] [facility] [id number] Provider Notes: Diagnosis: 1:Chest pain; 2:Acute pulmonary [...] day. fluticasone nasal (fluticasone Nasal 0.05 mg/inh [place]) 2 Sprays Nasal Inhalation every day. each [...] Mouth every day. potassium chloride (Potassium Chloride (Qaw-Symy-Mhx 10) 10 mEq oral tablet, extended release) [...] Referring Physician: Follow up: With: Address: When: BREA JJ [address] [facility], [place], [place] [id number] [phone] Business (1) Within 1 week Comments: A voice message is left with this office with your information so they can call you for a follow up appiontment. Please call them if you do not hear from them in a few days. Thank you. With: Address: When: Ezekiel Christian [facility], [address] [place] [id number] 06/28/2023 11:00 AM Type Location Start [facility] ONC Office Visit [facility] (FT) FT.ONCOLOGY 06/28/2023 11:00 AM 06/28/2023 11:45 AM Confirmed Patient Education Information: Normal [facility] Inpatient Patient Summaryon 06-17-2023 Inpatient Patient Summary [address] [address] Patient Discharge Instructions PERSON INFORMATION Name: SIS MOORE Date of : 1965 Current Date: 06/17/2023 09:58:26 PHYSICIANS Admitting Physician: Alex BARRIENTOS MD Primary Care Physician: BREA JJ CNP PCP Phone Number: [phone] Comment: Discharge Diagnosis: 1:Chest pain; 2:Acute pulmonary embolism; 3:Sinus tachycardia; 4:COPD without exacerbation; 5:Hypertension; 6:Diabetes mellitus; 7:Depression; 8:Chronic hypoxemic respiratory failure; 9:Obese; 10:Smoker; 11:On deep vein thrombosis (DVT) prophylaxis Condition at Discharge: Improved SIS MOORE has been given the following [...] results: None Follow up: With: Address: When: BREA JJ [address] [place], [place] [phone] Business (1) Within 1 week Comments: A voice message is left with this office with your information so they can call you for a follow up appiontment. Please call them if you do not hear from them in a few days. Thank you. With: Address: When: Ezekiel Christian [facility], [address] [place] [address] 06/28/2023 11:00 AM In the event that this physician does not participate in your insurance network, please consult with your insurance company to find a nearby participating provider. Type Location Start [facility] ONC Office Visit [facility] 11:00 AM 06/28/2023 11:45 AM Confirmed [...] ____ fluticasone nasal (fluticasone Nasal 0.05 mg/inh [place]) 2 Sprays Nasal Inhalation every day. each [...] Dose: ____ potassi (more content not included)... [facility] Insurance Correspondenceon 0 06-17-2023 Insurance Correspondence [id number]#1 .00CD:127 [facility] Interdisciplinary Note - Rodney e Manageron 06-17-2023 Interdisciplinary Note - Performance Specialist Pt will dc home today pending ECHO and Eliquis pricing. Pt's will transport. Pt has POC here to go home on O2. CRM to follow. Eliquis $0. Pt aware. [facility] Comment on above: Result Comment: Elec tronically Signed By: Marcia Montgomery\Date and Time Signed: 06/17/23 09:44 EDT Monitor Recordon 06-17-2023 Monitor Record [id number]# 1.00CD:127 [facility] Monitor Record [id number]# 1.00CD:127 [facility] Monitor Record [id number]# 1.00CD:127 [facility] Monitor Record [id number]# 1.00CD:127 Normal [facility] Patient Education - Texton 0 06-17-2023 Patient Education - Text Normal [facility] Progress Note-Nurseon 2022 Progress Note-Nurse This RN cannot complete the Medication Reconciliation as to the fact that the Patient cannot recall the medications she is taking at home. The list will be available in the morning once the patients will be here in the hospital on 06/17/2023. Dr. Drummond was informed about this matter. On going care provided. Normal [facility] Troponin 6 Hr.on 06-17-2023 Troponin I.cardiac [Mass/Vol] 5.50 pg/mL Low 10.10-27.10 [facility] Comment on above: Result Comment: The 95% CI (Confidence Interval) PPV (Positive Predictive Value) for myocardial infarction in females is 38 pg/mL, in males 51 pg/mL. The results should be used in conjunction with clinical conditions of myocardial infarction. (Access High Sensitivity Troponin I Instructions For Use, [employer], May 2018) Performed By: #### 2 057491, 9987276, 06131370, 82192089, 8363812, 3119977, 28130164, 90991570 #### [facility] [address] [place] [address] Troponin 9 Hr.on 06-17-2023 Troponin I.cardiac [Mass/Vol] 5.20 pg/mL Low 10.10-27.10 [facility] Comment on above: Result Comment: The 95% CI (Confidence Interval) PPV (Positive Predictive Value) for myocardial infarction in females is 38 pg/mL, in males 51 pg/mL. The results should be used in conjunction with clinical conditions of myocardial infarction. (Access High Sensitivity Troponin I Instructions For Use, [employer], May 2018) Performed By: #### 1 [id number] ####[facility] [address] [place] [address] [place] LE Venous Duplex Bilatera danni 06-17-2023 [...] MD Transcribed by: NOHEMY Technologist: ALISSA Barkley [facility] XR Chest Single Viewon 06-17 XR Chest [...] mGy = na DAP = na Normal [facility] Auto DiffOrdered By: SYSTEM SYSTEM on 06-16-2023 Basophils/100 WBC (Bld) 0.3 % Normal 0.0-2.0 [facility] HemeAuto[facility] Comment on above: Order Comment: Order Added by Discern Expert. Performed By: #### 2 772739, 4475475, 72023702, 92863358, 8545524, 7651352, 77643021, 82816478 #### [facility] [address] [place] [address] Basophils/Leukocytes Auto (Bld) [Pure # fraction] 0.0 E9/L Normal 0.0-0.2 FT [facility] Comment on above: Order Comment: Order Added by Discern Expert. Performed By: #### 2 616890, 8413083, 62947893, 02059495, 3745356, 2840713, 92293333, 23580147 #### [facility] [address] [place] [address] Eosinophils/100 WBC (Bld) 0.9 % Normal 0.0-8.0 FT [facility] Comment on above: Order Comment: Order Added by Discern Expert. Performed By: #### 2 324176, 1126701, 37969046, 14659437, 4783000, 4719409, 35752963, 34433999 #### [facility] [address] [place] [address] Eosinophils/Leukocytes Auto (Bld) [Pure # fraction] 0.1 E9/L Normal 0.0-0.5 FT [facility] Comment on above: Order Comment: Order Added by Discern Expert. Performed By: #### 2 582848, 4298078, 06549881, 73799285, 3877759, 6069066, 27218436, 75799223 #### [facility] [address] [place] [address] Lymphocytes/100 WBC (Bld) 14.3 % Normal 14.0-50.0 FT [facility] Comment on above: Order Comment: Order Added by Discern Expert. Performed By: #### 2 685632, 6141534, 36861928, 08094432, 0145560, 5249473, 94350748, 87337648 #### [facility] [address] [place] [address] Lymphocytes/Leukocytes Auto (Bld) [Pure # fraction] 1.2 E9/L Normal 1.0-4.0 FT [facility] Comment on above: Order Comment: Order Added by Discern Expert. Performed By: #### 2 481836, 9291250, 63760746, 54287722, 6360906, 9089891, 60413524, 11617347 #### [facility] [address] [place] [address] Monocytes/100 WBC (Bld) 8.8 % Normal 4.0-14.0 FT [facility] Comment on above: Order Comment: Order Added by Discern Expert. Performed By: #### 2 569490, 4246867, 95530552, 40570544, 0354853, 8482738, 92393655, 14527315 #### [facility] [address] [place] [address] Monocytes/Leukocytes Auto (Bld) [Pure # fraction] 0.7 E9/L Normal 0.2-1.0 FT [facility] Comment on above: Order Comment: Order Added by Discern Expert. Performed By: #### 2 360659, 5200677, 19664669, 16755617, 2859145, 5658287, 36530599, 52754038 #### [facility] [address] [place] [address] Neutrophils/100 WBC (Bld) 75.7 % High 36.0-75.0 FT [facility] Comment on above: Order Comment: Order Added by Discern Expert. Performed By: #### 2 206474, 0705040, 18555331, 88753454, 0583585, 0272183, 40037126, 54603135 #### [facility] [address] [place] [address] Neutrophils/Leukocytes Auto (Bld) [Pure # fraction] 6.4 E9/L Normal 2.0-7.5 [facility] Comment on above: Order Comment: Order Added by Discern Expert. Performed By: #### 2 007221, 3835301, 45290071, 57687251, 8046875, 2890348, 32720573, 70374889 #### [facility] [address] [place] [address] BMPOrdered By: SYSTEM SYSTEM on 06-16-2023 Creatinine [Mass/Vol] 0.8 mg/dL Normal 0.5-1.3 F[facility] C Remisol Comment on above: Performed By: #### 2 540521, 2129384, 76880527, 40994288, 4914734, 0007749, 31026279, 15885694 #### [facility] [address] [place] [address] Urea nitrogen [Mass/Vol] 16 mg/dL Normal 5-21 FT Remisol Comment on above: Performed By: #### 2 895951, 7756149, 01986217, 08683189, 7041719, 4435072, 49171630, 53424685 #### [facility] [address] [place] [address] Anion gap [Moles/Vol] 12 mmol/L Normal 6-16 FT C Remisol Comment on above: Performed By: #### 2 725939, 6103699, 00373198, 68995345, 4055613, 8337822, 65331580, 63307465 #### [facility] [address] [place] [address] Calcium [Mass/Vol] 9.9 mg/dL Normal 8.9-11.1 [facility] R emisol Comment on above: Performed By: #### 2 139105, 9737812, 43892155, 60594365, 8001890, 2287547, 18404632, 07307668 #### [facility] [address] [place] [address] Chloride [Moles/Vol] 101 mmol/L Normal 101-111 [facility] Remisol Comment on above: Performed By: #### 2 975572, 8759570, 78604682, 93023957, 8086047, 6502860, 63357812, 02318651 #### [facility] [address] [place] [address] CO2 [Moles/Vol] 27 mmol/L Normal 21-31 [facility] Wes debby Comment on above: Performed By: #### 2 144210, 9572306, 25521876, 58292510, 1022009, 9901675, 08671587, 17822789 #### [facility] [address] [place] [address] Glucose [Mass/Vol] 129 mg/dL Normal 55-199 [facility] R emisol Comment on above: Result Comment: If t his glucose result represents a fasting glucose, interpretation should refer to the following reference range: 55-99 mg/dL Performed By: #### 2 810548, 0118187, 58831223, 35231327, 5638514, 4351173, 19618966, 69566772 #### [facility] [address] [place] [address] Potassium [Moles/Vol] 3.9 mmol/L Normal 3.5-5.3 [facility] Remisol Comment on above: Performed By: #### 2 195678, 8038001, 83958703, 40548254, 0091097, 6541357, 46773746, 66437697 #### [facility] [address] [place] [address] Sodium [Moles/Vol] 136 mmol/L Normal 135-145 [facility] R emisol Comment on above: Performed By: #### 2 240331, 4026499, 92306882, 92374080, 3672150, 3789422, 73420895, 91074986 #### [facility] [address] [place] [address] BMPon 06-16-2023 Urea nitrogen/Creatinine [Mass ratio] 20 No Units Normal 10-20 [facility] Comment on above: Performed By: #### 2 395864, 8419322, 52779896, 70857320, 5941164, 9410390, 31555769, 70170315 #### [facility] [address] [place] [address] CBC w/ Auto DiffOrdered By: Yanet Davis on 06-16-2023 Erythrocyte distribution width (RBC) [Ratio] 14.8 % High 10.9-14.2 [facility] Comment on above: Performed By: #### 2 817465, 5215769, 07367205, 73963069, 2752836, 4245451, 09368924, 19827668 #### [facility] [address] [place] [address] Hematocrit (Bld) [Volume fraction] 40.0 % Normal 34.0-46.0 [facility] Comment on above: Performed By: #### 2 984991, 5657357, 21631372, 77819234, 5139836, 3738402, 41806933, 27671292 #### [facility] [address] [place] [address] Hemoglobin (Bld) [Mass/Vol] 13.5 g/dL Normal 12.0-16.0 [facility] Comment on above: Performed By: #### 2 041034, 8222620, 80626049, 52441338, 6900363, 8504816, 06369846, 75313765 #### [facility] [address] [place] [address] MCH (RBC) [Entitic mass] 29.6 pg Normal 27.0-34.0 [facility] Comment on above: Performed By: #### 2 935715, 8219645, 88669802, 56584284, 4524855, 7238905, 44802577, 94257543 #### [facility] [address] [place] [address] MCHC (RBC) [Mass/Vol] 33.8 g/dL Normal 31.4-36.[address] [facility] Comment on above: Performed By: #### 2 869270, 1833003, 20105592, 59172327, 1540489, 7230786, 29458667, 54893799 #### [facility] [address] [place] [address] MCV (RBC) [Entitic vol] 87.6 fL Normal 80.0-100.0 [facility] Comment on above: Performed By: #### 2 524964, 8727594, 88506923, 27771555, 2086692, 5081080, 50736988, 45429987 #### [facility] [address] [place] [address] Platelet mean volume (Bld) [Entitic vol] 10.5 fL Normal 6.4-10.8 FT [facility] Comment on above: Performed By: #### 2 173480, 7313683, 93552367, 78523646, 1777563, 7895886, 82327025, 10453954 #### [facility] [address] [place] [address] Platelets (Bld) [#/Vol] 172.0 E9/L Normal 150.0-500.0 FT [facility] Comment on above: Performed By: #### 2 049395, 4839192, 85457980, 61124232, 6497359, 4530854, 47078270, 62942379 #### [facility] [address] [place] [address] RBC (Bld) [#/Vol] 4.6 E12/L Normal 4.3-5.9 [facility] Comment on above: Performed By: #### 2 691933, 3096619, 04154499, 35727367, 2700901, 6180482, 25105199, 43550360 #### [facility] [address] [place] [address] WBC corrected for nucl RBC Auto (Bld) [#/Vol] 8.4 E9/L Normal 4.0-11.0 [facility] Comment on above: Performed By: #### 2 194050, 5253398, 91199311, 86632626, 5269571, 3617170, 14955483, 77725596 #### [facility] [address] [place] [address] CHEMISTRYOrdered By: SYSTEM SYSTEM on 06-16-2023 Troponin I.cardiac [Mass/Vol] 5.50 pg/mL Low 10.10 - 27.10 pg/mL [facility] Remisol Troponin I.cardiac [Mass/Vol] 5.30 pg/mL Low 10.10 - 27.10 pg/mL [facility] Remisol Urea nitrogen/Creatinine [Mass ratio] 20 mg/mg Normal 10 - 20 [facility] Remisol COAGULATIONOrdered By: David Chadwick on 06-16-2023 aPTT Coag (PPP) [Time] 31.8 s Normal 25.1 - 36.5 second(s) [facility] Auto Coag Fibrin D-dimer FEU (PPP) [Mass/Vol] 532 ng/mL FEU Invalid Interpretation Code 215 - 500 ng/mL FEU [facility] Auto Coag Comment on above: Result Comment: Resu lts Called To XOCHITL RAMIREZ By DAVID CHADWICK And Read Back For Confirmation On 06/16/2023 16:59:58 EDT Results Verified By Repeat Analysis PT Coag (PPP) [Time] 11.4 s Normal 9.4 - 1 2.5 second(s) [facility] Auto Coag CTA Cheston 06-16-2023 CTA Chest [...] 370 Contrast amount in ml's: 89 Normal [facility] Consent for Treatmenton 05-31 Consent for Treatment [id number]#1 .00CD:127 Normal [facility] D-Dimeron 06-16-2023 Fibrin D-dimer FEU (PPP) [Mass/Vol] 532 CD:[id number] Abnormal 215-500 [facility] Comment on above: Result Comment: Resu lts [...] infections Liver cirrhosis Performed By: #### 2 244427, 9747051, 70778443, 53243181, 9749720, 8681163, 03651046, 25409356 #### [facility] [address] [place] [address] ED Clinical Summaryon 2022 ED Clinical Summary [address] [address] ED Clinical Summary Person Information Name: SIS MOORE [place] Age: 57 Years : 1965 Sex: Female Language: Monegasque PCP: BREA JJ CNP Marital Status: Visit Id: Visit Reason: Chest pain; MID STERNUM PAIN Speciality: Acuity: 2 Enc Type: Emergency Med Service: Emergency Arrival: 06/16/2023 15:45:03 Discharge: LOS: 000 06:14 Checkin: 06/16/2023 15:45:03 Checkout: 06/16/2023 21:59:01 Dispo Type: Admitted as IP to this [facility] EVENTS: Event Name Event Status Request Date/Time [...] 06/16/2023 21:04:33 Admit Request 06/16/2023 21:04:33 ADDRESS: [address] [place] [address] [address] [facility] [phone] PHYS DOC NOTES: MEDICAL INFORMATION: Prescriptions Given: PATIENT EDUCATION INFORMATION: Instructions: Follow up: DIAGNOSIS: 1:Chest pain; 2:Acute pulmonary embolism; 3:Sinus tachycardia; 4:COPD without exacerbation; 5:Hypertension; 6:Diabetes mellitus; 7:Depression; 8:Chronic hypoxemic respiratory failure; 9:Obese; 10:Smoker; 11:On deep vein thrombosis (DVT) prophylaxis Normal [facility] ED Note-Nursingon 06-16-2023 ED Note-Nursing Per JUAN Reeves, patient okay to take at home Xanax medications. Pt took 1/2 of a .25mg tab. Normal [facility] ED Note-Physicianon 06-16-20 ED Note-Physician Basic Information [...] and Complexity of Problems Differential Diagnosis: [] [facility] Data External documents reviewed: [] My [...] deep vein thrombosis (DVT) prophylaxis (Z79.899: Other terminal make up operator (current) drug therapy) 4. COPD without exacerbation [...] Tab, 162 (more content not included)... Normal [facility] Comment on above: Result Comment: Elec tronically Signed By: Sandro HAYNES, Leandro Neal\.br\Date and Time Signed: 06/16/23 18:46 EDT\.br\Electronically Co-Signed By: Ramses Hair DO\.br\Date and Time Co-Signed: 06/16/23 19:30 EDT ED Patient Education Noteon 06-16-2023 ED Patient Education Note Normal [facility] ED Patient Summaryon 023 ED Patient Summary [place] [id number] Patient Discharge Instructions Person Information Name: SIS MOORE Age: 57 Years Arrival Date: 06/16/2023 15:45:03 Discharge Diagnosis: 1:Chest pain; 2:Acute pulmonary embolism; 3:Sinus tachycardia; 4:COPD without exacerbation; 5:Hypertension; 6:Diabetes mellitus; 7:Depression; 8:Chronic hypoxemic respiratory failure; 9:Obese; 10:Smoker; 11:On deep vein thrombosis (DVT) prophylaxis Primary Care Physician: BREA JJ CNP Provider Information Primary Provider: Ramses Hair DO Advanced Ice Cream Dipper:Leandro Jo PA-C The exam and treatment you received in the Emergency Department were for an urgent problem and are not intended as complete care. It is important that you follow up with a doctor, nurse practitioner, or physician?s medical assistant dermatology for ongoing care. If your symptoms become [...] opioids can be used to help relieve fsbicawl-pb-mhkwox pain and are often prescribed following a [...] be struggling with addiction, tell your health life care planner and ask for guid (more content not included)... Normal [facility] Monitor Recordon 06-16-2023 Monitor Record [id number]# 1.00CD:127 Normal [facility] PT & PTTon 06-16-2023 aPTT Coag (PPP) [Time] 31.8 second(s) Normal 25.1-36.5 [facility] Comment on above: Result Comment: Para meter [...] the same coagulation reagent and instrumentation as [facility]. Currently there are no coagulation studies available worldwide for children to 14 days, and no normal ranges. Heparin therapeutic range (represented by Anti-Factor Xa activity of 0.2 - 0.4 U/mL) corresponds to PTT of 56.6 - 109.0 sec. Performed By: #### 2 920228, 3943537, 53833199, 72754767, 1464237, 8449131, 29381243, 21487972 #### [facility] [address] [place] [address] PT Coag (PPP) [Time] 11.4 second(s) Normal 9.4-12.5 [facility] Comment on above: Result Comment: [...] the same coagulation reagent and instrumentation as [facility]. Currently there are no coagulation studies available worldwide for children to 14 days, and no normal ranges. Performed By: #### 2 830623, 5302955, 17668655, 76302106, 2566255, 2034245, 75545818, 15063784 #### [facility] [address] [place] [address] PT & PTTOrdered By: David sher on 06-16-2023 INR Coag (PPP) [Relative time] 1.0 {INR} Invalid Interpretation Code [facility] Auto Coag Comment on above: Result Comment: INR results are specifically intended to assess patients stabilized on long-term Anticoagulation therapy suggested INR?s ?Less Intensive Anticoagulation? 2.0 ? 3.0 Conventional Range 3.0 ? 4.5 Performed By: #### 2 417684, 0201217, 66790675, 98025199, 7101715, 3019146, 88676799, 70698112 #### [facility] [address] [place] [address] Troponin 0 Hr.on 06-16-2023 Troponin I.cardiac [Mass/Vol] 4.60 pg/mL Low 10.10-27.10 [facility] Comment on above: Result Comment: The 95% CI (Confidence Interval) PPV (Positive Predictive Value) for myocardial infarction in females is 38 pg/mL, in males 51 pg/mL. The results should be used in conjunction with clinical conditions of myocardial infarction. (Access High Sensitivity Troponin I Instructions For Use, [employer], May 2018) Performed By: #### 2 410804, 4367697, 83516123, 16513161, 2427152, 2434653, 78615946, 39728191 #### [facility] [address] [place] [address] Troponin 3 Hr.on 06-16-2023 Troponin I.cardiac [Mass/Vol] 5.30 pg/mL Low 10.10-27.10 [facility] Comment on above: Result Comment: The 95% CI (Confidence Interval) PPV (Positive Predictive Value) for myocardial infarction in females is 38 pg/mL, in males 51 pg/mL. The results should be used in conjunction with clinical conditions of myocardial infarction. (Access High Sensitivity Troponin I Instructions For Use, [employer], May 2018) Performed By: #### 2 661219, 3430005, 13964903, 29034669, 4500887, 8133987, 79632967, 32678094 #### [facility] [address] [place] [address] eGFROrdered By: SYSTEM [employer] on 06-16-2023 GFR/1.73 sq M.predicted among non-blacks MDRD (S/P/Bld) [Vol rate/Area] 85 mL/min/1.73 m2 Normal >=59 [facility] Chem S Comment on above: Order Comment: Order added by Discern Expert. Result Comment: Oil Mixer nita kidney disease could be indicated at eGFR's of less than 60 mL/min/1.73m2. Kidney failure is indicated at less than 15 mL/min/1.73m2. Performed By: #### 2 983182, 8425226, 84401101, 23814636, 4781650, 1324035, 90253102, 92083380 #### [facility] [address] [place] [address] 36on 06-09-2023 36 Patient will need a follow up appointment for further refills Normal [facility] BNPon 02-23-2023 Natriuretic peptide B (Bld) [Mass/Vol] 114.0 pg/mL Normal <=900.0 [facility] Comment on above: Performed By: #### C MP, BNP, HSTROPN #### [facility] [address] [place] [address] Dr. Xiomy Lennon CBC AUTO DIFFon 02-23-2023 BASO # 0.0 103/ul Normal 0.0-0.1 [facility] Comment on above: Performed By: #### P T, PTT #### [facility] [address] [place] [address] Dr. Xiomy Lennon Basophils/100 WBC (Bld) 0.2 % Normal 0.2-2.0 [facility] Comment on above: Performed By: #### P T, PTT #### [facility] [address] [place] [address] Dr. Xiomy Lennon EO # 0.2 103/ul Normal 0.0-0.7 [facility] Comment on above: Performed By: #### P T, PTT #### [facility] [address] [place] [address] Dr. Xiomy Lennon Eosinophils/100 WBC (Bld) 1.8 % Normal 0.9-7.0 [facility] Comment on above: Performed By: #### P T, PTT #### [facility] [address] [place] [address] Dr. Xiomy Lennon Erythrocyte distribution width (RBC) [Ratio] 15.4 % Critically high 11.0-15.0 [facility] Comment on above: Performed By: #### P T, PTT #### [facility] [address] [place] [address] Dr. Xiomy Lennon Hematocrit (Bld) [Volume fraction] 37.6 % Normal 36.0-48.0 [facility] Comment on above: Performed By: #### P T, PTT #### [facility] [address] [place] [address] Dr. Xiomy Lennon Hemoglobin (Bld) [Mass/Vol] 12.2 g/dL Normal 12.0-16.0 [facility] Comment on above: Performed By: #### P T, PTT #### [facility] [address] [place] [address] Dr. Xiomy Lennon IG # 0.02 10e3/ul Normal 0.00-0.03 [facility] Comment on above: Performed By: #### P T, PTT #### [facility] [address] [place] [address] Dr. Xiomy Lennon IG % 0.2 % Normal 0.0-0.5 [facility] Comment on above: Performed By: #### P T, PTT #### [facility] [address] [place] [address] Dr. Xiomy Lennon LYMPH # 1.7 103/ul Normal 1.2-3.8 [facility] Comment on above: Performed By: #### P T, PTT #### [facility] [address] [place] [address] Dr. Xiomy Lennon Lymphocytes/100 WBC (Bld) 17.0 % Critically low 20.5-60.0 [facility] Comment on above: Performed By: #### P T, PTT #### [facility] [address] [place] [address] Dr. Xiomy Lennon MANUAL DIFF REQ NO Normal [facility] Comment on above: Performed By: #### P T, PTT #### [facility] [address] [place] [address] Dr. Xiomy Lennon MCH (RBC) [Entitic mass] 28.6 pg Normal 26.7-34.0 [facility] Comment on above: Performed By: #### P T, PTT #### [facility] [address] [place] [address] Dr. Xiomy Lennon MCHC (RBC) [Mass/Vol] 32.4 g/dL Normal 29.9-35.2 [facility] Comment on above: Performed By: #### P T, PTT #### [facility] [address] [place] [address] Dr. Xiomy Lennon MCV (RBC) [Entitic vol] 88.3 fL Normal 81.0-99.0 [facility] Comment on above: Performed By: #### P T, PTT #### [facility] [address] [place] [address] Dr. Xiomy Lennon MONO # 0.7 103/ul Normal 0.3-0.8 [facility] Comment on above: Performed By: #### P T, PTT #### [facility] [address] [place] [address] Dr. Xiomy Lennon Monocytes/100 WBC (Bld) 7.3 % Normal 1.7-12.0 [facility] Comment on above: Performed By: #### P T, PTT #### [facility] [address] [place] [address] Dr. Xiomy Lennon NEUT # 7.2 103/ul Critically high 1.4-6.5 [facility] Comment on above: Performed By: #### P T, PTT #### [facility] [address] [place] [address] Dr. Xiomy Lennon Neutrophils/100 WBC (Bld) 73.5 % Normal 43.0-75.0 [facility] Comment on above: Performed By: #### P T, PTT #### [facility] [address] [place] [address] Dr. Xiomy Lennon Platelet mean volume (Bld) [Entitic vol] 11.5 fL Normal 9.5-13.5 [facility] Comment on above: Performed By: #### P T, PTT #### [facility] [address] [place] [address] Dr. Xiomy Lennon PLT 197 103/ul Normal 150-450 [facility] Comment on above: Performed By: #### P T, PTT #### [facility] [address] [place] [address] Dr. Xiomy Lennon RBC 4.26 106/ul Normal 4.20-5.40 [facility] Comment on above: Performed By: #### P T, PTT #### [facility] [address] [place] [address] Dr. Xiomy Lennon WBC 9.7 103/ul Normal 4.0-11.0 [facility] Comment on above: Performed By: #### P T, PTT #### [facility] [address] [place] [address] Dr. Xiomy Lennon LACTATE/LACTIC ACIDon 2022 Lactate [Moles/Vol] 0.7 mmol/L Normal 0.4-2.0 [facility] Comment on above: Performed By: #### P T, PTT #### [facility] [address] [address] [address] Xiomy Lennon PROF 14(COMP METB)on 023 Albumin [Mass/Vol] 3.3 g/dL Critically low 3.4-5.0 [facility] Comment on above: Performed By: #### C MP, BNP, HSTROPN #### [facility] [address] [address] [address] Xiomy Lennon Albumin/Globulin [Mass ratio] 0.7 {ratio} Normal [facility] Comment on above: Performed By: #### C MP, BNP, HSTROPN #### [facility] [address] [place] [address] Dr. Xiomy Lennon ALP [Catalytic activity/Vol] 89 U/L Normal 46-116 [facility] Comment on above: Performed By: #### C MP, BNP, HSTROPN #### [facility] [address] [address] [address] Xiomy Lennon ALT [Catalytic activity/Vol] 34 U/L Normal 14-59 [facility] Comment on above: Performed By: #### C MP, BNP, HSTROPN #### [facility] [address] [address] [address] Xiomy Lennon Anion gap [Moles/Vol] 10.5 mmol/L Normal [facility] Comment on above: Performed By: #### C MP, BNP, HSTROPN #### [facility] [address] [address] [address] Xiomy Lennon AST [Catalytic activity/Vol] 22 U/L Normal 15-37 [facility] Comment on above: Performed By: #### C MP, BNP, HSTROPN #### [facility] [address] [address] [address] Xiomy Lennon Bilirubin [Mass/Vol] 0.3 mg/dL Normal 0.2-1.0 [facility] Comment on above: Performed By: #### C MP, BNP, HSTROPN #### [facility] [address] [place] [address] Dr. Xiomy Lennon Calcium [Mass/Vol] 9.4 mg/dL Normal 8.5-10.1 [facility] Comment on above: Performed By: #### C MP, BNP, HSTROPN #### [facility] [address] [place] [address] Dr. Xiomy Lennon Chloride [Moles/Vol] 99 mmol/L Normal 98-107 [facility] Comment on above: Performed By: #### C MP, BNP, HSTROPN #### [facility] [address] [place] [address] Dr. Xiomy Lennon CO2 [Moles/Vol] 31.6 mmol/L Normal 21.0-32.0 [facility] Comment on above: Performed By: #### C MP, BNP, HSTROPN #### [facility] [address] [place] [address] Dr. Xiomy Lennon Creatinine [Mass/Vol] 0.86 mg/dL Normal 0.55-1.02 [facility] Comment on above: Performed By: #### C MP, BNP, HSTROPN #### [facility] [address] [place] [address] Dr. Xiomy Lennon EGFR-AF LIBERIAN >60 Normal >=60 [facility] Comment on above: Performed By: #### C MP, BNP, HSTROPN #### [facility] [address] [place] [address] Dr. Xiomy Lennon EGFR-NON AF LIBERIAN >60 Normal >=60 [facility] Comment on above: Performed By: #### C MP, BNP, HSTROPN #### [facility] [address] [place] [address] Dr. Xiomy Lennon Globulin (S) [Mass/Vol] 4.6 g/dL Normal [facility] Comment on above: Performed By: #### C MP, BNP, HSTROPN #### [facility] [address] [place] [address] Dr. Xiomy Lennon Glucose [Mass/Vol] 133 mg/dL Critically high 74-106 T [facility] Comment on above: Performed By: #### C MP, BNP, HSTROPN #### [facility] [address] [place] [address] Dr. Xiomy Lennon Potassium [Moles/Vol] 4.1 mmol/L Normal 3.5-5.1 [facility] Comment on above: Performed By: #### C MP, BNP, HSTROPN #### [facility] [address] [place] [address] Dr. Xiomy Lennon Protein [Mass/Vol] 7.9 g/dL Normal 6.4-8.2 [facility] Comment on above: Performed By: #### C MP, BNP, HSTROPN #### [facility] [address] [place] [address] Dr. Xiomy Lennon Sodium [Moles/Vol] 137 mmol/L Normal 136-145 [facility] Comment on above: Performed By: #### C MP, BNP, HSTROPN #### [facility] [address] [place] [address] Dr. Xiomy Lennon Urea nitrogen [Mass/Vol] 16.0 mg/dL Normal 7.0-18.0 [facility] Comment on above: Performed By: #### C MP, BNP, HSTROPN #### [facility] [address] [place] [address] Dr. Xiomy Lennon Urea nitrogen/Creatinine [Mass ratio] 18.6 mg/mg Normal [facility] Comment on above: Performed By: #### C MP, BNP, HSTROPN #### [facility] [address] [place] [address] Dr. Xiomy Lennon PROTIMEon 02-23-2023 INR Coag (PPP) [Relative time] 0.95 {INR} Normal [facility] Comment on above: Performed By: #### P TT, PT #### [facility] [address] [place] [address] Dr. Xiomy Lennon INR GUIDELINES SEE BELOW Normal [facility] Comment on above: Result Comment: NIALL RED INR: 2.0 - 3.0 CONDITIONS NOT LISTED BELOW 2.5 - 3.5 FOR PROSTHETIC HEART VALVE REPLACEMENT 2.5 - 3.5 RECURRENT THROMBOSIS Performed By: #### P TT, PT #### [facility] [address] [address] [address] Xiomy Lennon PT Coag (PPP) [Time] 10.1 s Normal 9.0-11.6 [facility] Comment on above: Performed By: #### P TT, PT #### [facility] [address] [address] [address] Xiomy Lennon PTTon 02-23-2023 aPTT Coag (Bld) [Time] 27.2 s Normal 22.3-36.2 Th e [facility] Comment on above: Performed By: #### P TT, PT #### [facility] [address] [address] [address] Xiomy Lennon TROPONIN, HIGH SENSITIVITYon 02-23-2023 HSTROP 6.2 pg/mL Normal 4.0-51.3 [facility] Comment on above: Result Comment: CUT- OFF POINTS HAVE BEEN ESTABLISHED BASED ON THE FOURTH UNIVERSAL DEFINITIONS OF MYOCARDIAL INFARCTION. THE UPPER REFERENCE LIMIT (URL) OF TROPONIN, DEFINED THE 99TH PERCENTILE OF cTnI DISTRIBUTION IN A REFERENCE POPULATION, HAS BEEN CONFIRMED THE DECISION THRESHOLD FOR TX DIAGNOSIS. Performed By: #### C MP, BNP, HSTROPN #### [facility] [address] [place] [address] Dr. Xiomy Lennon XR CHEST 1 Von [...] by: JUSTINE MARES Date: 2023-02-23 19:05 Normal [facility] HEMOGLOBINon 02-01-2023 Hemoglobin (Bld) [Mass/Vol] 13.0 g/dL Normal 12.0-16.0 [facility] Comment on above: Performed By: #### H GB #### [facility] [address] [address] [address] Xiomy Lennon PULMONARY FUNCTION TESTon PULMONARY [...] ambulation/activity. 3. Clinical correlation required. Normal [facility] CT LUNG CANCER SCREENINGon 0 01-12-2023 CT [...] by: MIGUEL MEDEROS Date: 2023-01-12 14:10 Normal [facility] GLYCOHEMOGLOBIN A1Con 2022 ADA RECOMMENDATION SEE BELOW Normal [facility] Comment on above: Result Comment: ADA RECOMMENDED LIMIT 4.0 - 6.0 ADA THERAPEUTIC TARGET < 7.0 ACTION SUGGESTED > 7.0 Performed By: #### A 1C #### [facility] [address] [place] [address] Dr. Xiomy Lennon Glucose [Mass/Vol] 111 mg/dL Normal [facility] Comment on above: Performed By: #### A 1C #### [facility] [address] [place] [address] Dr. Xiomy Lennon HbA1c (Bld) [Mass fraction] 5.5 % Normal 4.5-6.2 [facility] Comment on above: Performed By: #### A 1C #### [facility] [address] [address] [address] Xiomy Lennon PROF CHEM 8 (BAS METB)on Anion gap [Moles/Vol] 12.0 mmol/L Normal [facility] Comment on above: Performed By: #### P T, PTT #### [facility] [address] [address] [address] Xiomy Lennon Calcium [Mass/Vol] 10.0 mg/dL Normal 8.5-10.1 [facility] Comment on above: Performed By: #### P T, PTT #### [facility] [address] [address] [address] Xiomy Lennon Chloride [Moles/Vol] 102 mmol/L Normal 98-107 [facility] Comment on above: Performed By: #### P T, PTT #### [facility] [address] [address] [address] Xiomy Lennon CO2 [Moles/Vol] 30.4 mmol/L Normal 21.0-32.0 [facility] Comment on above: Performed By: #### P T, PTT #### [facility] [address] [address] [address] Xiomy Lennon Creatinine [Mass/Vol] 0.79 mg/dL Normal 0.55-1.02 [facility] Comment on above: Performed By: #### P T, PTT #### [facility] [address] [address] [address] Xiomy Lennon EGFR-AF LIBERIAN >60 Normal >=60 [facility] Comment on above: Performed By: #### P T, PTT #### [facility] [address] [address] [address] Xiomy Lennon EGFR-NON AF LIBERIAN >60 Normal >=60 [facility] Comment on above: Performed By: #### P T, PTT #### [facility] [address] [address] [address] Xiomy Lennon Glucose [Mass/Vol] 147 mg/dL Critically high 74-106 [facility] Comment on above: Performed By: #### P T, PTT #### [facility] [address] [address] [address] Xiomy Lennon Potassium [Moles/Vol] 4.4 mmol/L Normal 3.5-5.1 [facility] Comment on above: Performed By: #### P T, PTT #### [facility] [address] [address] [address] Xiomy Lennon Sodium [Moles/Vol] 140 mmol/L Normal 136-145 [facility] Comment on above: Performed By: #### P T, PTT #### [facility] [address] [address] [address] Xiomy Lennon Urea nitrogen [Mass/Vol] 18.0 mg/dL Normal 7.0-18.0 [facility] Comment on above: Performed By: #### P T, PTT #### [facility] [address] [address] [address] Xiomy Lennon Urea nitrogen/Creatinine [Mass ratio] 22.8 mg/mg Normal [facility] Comment on above: Performed By: #### P T, PTT #### [facility] [address] [address] [address] Xiomy Lennon Office Visiton 12-24-2022 Follow-up visit [id number] Sis Moore Connie 1965 F Date Provider Department Center 12/24/2022 [facility] Family History Problem Relation Age of Onset Coronary artery disease Other Pulmonary embolism Other Deep vein thrombosis Other Family Status - Relation Status Age at Other Level of Service:26287 [place] OFFICE/OUTPATIENT ESTABLISHED MOD MDM 30-39 MIN Reason for Visit and Comments: Hypertension [856740] Shortness of Breath [764959] Normal [facility] THEOPHYLLINEon 11-04-2022 THEOPHYLLINE 2.1 ug/mL Critically low 10.0-20.0 [facility] Comment on above: Performed By: #### T HERBERT #### [facility] [address] [address] [address] Xiomy Lennon GLYCOHEMOGLOBIN A1Con 2021 ADA RECOMMENDATION SEE BELOW Normal [facility] Comment on above: Result Comment: ADA RECOMMENDED LIMIT 4.0 - 6.0 ADA THERAPEUTIC TARGET < 7.0 ACTION SUGGESTED > 7.0 Performed By: #### P T, PTT #### [facility] [address] [address] [address] Xiomy Lennon Glucose [Mass/Vol] 120 mg/dL Normal [facility] Comment on above: Performed By: #### P T, PTT #### [facility] [address] [address] [address] Xiomy Lennon HbA1c (Bld) [Mass fraction] 5.8 % Normal 4.5-6.2 [facility] Comment on above: Performed By: #### P T, PTT #### [facility] [address] [address] [address] Xiomy Lennon LIPID PROFILEon 07-28-2022 CHOL-HDL RATIO NORM SEE BELOW Normal [facility] Comment on above: Result Comment: 3.3 - 4.4 LOW RISK 4.4 - 7.1 AVERAGE RISK 7.1 - 11.0 MODERATE RISK >11.0 HIGH RISK Performed By: #### P T, PTT #### [facility] [address] [address] [address] Xiomy Lennon Cholesterol [Mass/Vol] 135 mg/dL Normal <=200 Th [facility] Comment on above: Performed By: #### P T, PTT #### [facility] [address] [address] [address] Xiomy Lennon Cholesterol in HDL [Mass/Vol] 77 mg/dL Critically high 40-60 [facility] Comment on above: Performed By: #### P T, PTT #### [facility] [address] [address] [address] Xiomy Lennon Cholesterol in LDL [Mass/Vol] 44.6 mg/dL Normal [facility] Comment on above: Performed By: #### P T, PTT #### [facility] [address] [address] [address] Xiomy Lennon Cholesterol.total/Chol esterol in HDL [Mass ratio] 1.8 {ratio} Normal [facility] Comment on above: Performed By: #### P T, PTT #### [facility] [address] [address] [address] Xiomy Lennon HDL NORMAL > or = 60 mg/dl - LO W CARDIOVASCULAR RISK <40 mg/dl - HIGH CARDIOVASCULAR RISK Normal [facility] Comment on above: Performed By: #### P T, PTT #### [facility] [address] [address] [address] Xiomy Lennon LDL CALC NORMAL SEE BELOW Normal [facility] Comment on above: Result Comment: <100 mg/dl OPTIMAL 100 - 129 mg/dl NEAR OR ABOVE OPTIMAL 130 - 159 mg/dl BORDERLINE HIGH 160 - 189 mg/dl HIGH >190 mg/dl VERY HIGH Performed By: #### P T, PTT #### [facility] [address] [address] [address] Xiomy Lennon Triglyceride [Mass/Vol] 67 mg/dL Normal <=150 [facility] Comment on above: Performed By: #### P T, PTT #### [facility] [address] [address] [address] Xiomy Lennon VLDL CALC 13.4 mg/dL Normal [facility] Comment on above: Performed By: #### P T, PTT #### [facility] [address] [place] [address] Dr. Xiomy Lennon PROF CHEM 8 (BAS METB)on Anion gap [Moles/Vol] 8.9 mmol/L Normal [facility] Comment on above: Performed By: #### P T, PTT #### [facility] [address] [place] [address] Dr. Xiomy Lennon Calcium [Mass/Vol] 9.7 mg/dL Normal 8.5-10.1 [facility] Comment on above: Performed By: #### P T, PTT #### [facility] [address] [place] [address] Dr. Xiomy Lennon Chloride [Moles/Vol] 99 mmol/L Normal 98-107 [facility] Comment on above: Performed By: #### P T, PTT #### [facility] [address] [place] [address] Dr. Xiomy Lennon CO2 [Moles/Vol] 32.0 mmol/L Normal 21.0-32.0 [facility] Comment on above: Performed By: #### P T, PTT #### [facility] [address] [place] [address] Dr. Xiomy Lennon Creatinine [Mass/Vol] 0.78 mg/dL Normal 0.55-1.02 [facility] Comment on above: Performed By: #### P T, PTT #### [facility] [address] [place] [address] Dr. Xiomy Lennon EGFR-AF LIBERIAN >60 Normal >=60 [facility] Comment on above: Performed By: #### P T, PTT #### [facility] [address] [place] [address] Dr. Xiomy Lennon EGFR-NON AF LIBERIAN >60 Normal >=60 [facility] Comment on above: Performed By: #### P T, PTT #### [facility] [address] [place] [address] Dr. Xiomy Lennon Glucose [Mass/Vol] 111 mg/dL Critically high 74-106 T [facility] Comment on above: Performed By: #### P T, PTT #### [facility] [address] [address] [address] Xiomy Lennon Potassium [Moles/Vol] 3.9 mmol/L Normal 3.5-5.1 [facility] Comment on above: Performed By: #### P T, PTT #### [facility] [address] [address] [address] Xiomy Lennon Sodium [Moles/Vol] 136 mmol/L Normal 136-145 [facility] Comment on above: Performed By: #### P T, PTT #### [facility] [address] [address] [address] Xiomy Lennon Urea nitrogen [Mass/Vol] 10.0 mg/dL Normal 7.0-18.0 [facility] Comment on above: Performed By: #### P T, PTT #### [facility] [address] [address] [address] Xiomy Lennon Urea nitrogen/Creatinine [Mass ratio] 12.8 mg/mg Normal [facility] Comment on above: Performed By: #### P T, PTT #### [facility] [address] [place] [address] Dr. Xiomy Lennon MG MAMM SCREEN 3D EMY CADon 04-30-2022 MG MAMM SCREEN 3D EMY CAD Patient: SIS MOORE Exam Date: 04/30/2022 : 1965 Gender:F Ordering : ENRIQUE JJ [employer] Admission #: [id number] Family : Order #: [id number] CLICK HERE TO VIEW EXAM RADIOLOGY REPORT [...] Treatments None Family Cancers None LOCATION: [facility] BREAST COMPOSITION: Almost entirely fatty. FINDINGS: DIAGNOSTIC [...] MD on 04/30/2022 at 10:06 Normal [facility] CBC AUTO DIFFon 03-26-2022 BASO # 0.0 103/ul Normal 0.0-0.1 [facility] Comment on above: Performed By: #### P T, PTT #### [facility] [address] [place] [address] Dr. Xiomy Lennon Basophils/100 WBC (Bld) 0.2 % Normal 0.2-2.0 [facility] Comment on above: Performed By: #### P T, PTT #### [facility] [address] [address] [address] Xiomy Lennon EO # 0.2 103/ul Normal 0.0-0.7 [facility] Comment on above: Performed By: #### P T, PTT #### [facility] [address] [place] [address] Dr. Xiomy Lennon Eosinophils/100 WBC (Bld) 1.7 % Normal 0.9-7.0 [facility] Comment on above: Performed By: #### P T, PTT #### [facility] [address] [place] [address] Dr. Xiomy Lennon Erythrocyte distribution width (RBC) [Ratio] 15.6 % Critically high 11.0-15.0 [facility] Comment on above: Performed By: #### P T, PTT #### [facility] [address] [place] [address] Dr. Xiomy Lennon Hematocrit (Bld) [Volume fraction] 43.4 % Normal 36.0-48.0 [facility] Comment on above: Performed By: #### P T, PTT #### [facility] [address] [place] [address] Dr. Xiomy Lennon Hemoglobin (Bld) [Mass/Vol] 14.0 g/dL Normal 12.0-16.0 [facility] Comment on above: Performed By: #### P T, PTT #### [facility] [address] [place] [address] Dr. Xiomy Lennon IG # 0.04 10e3/ul Critically high 0.00-0.03 [facility] Comment on above: Performed By: #### P T, PTT #### [facility] [address] [place] [address] Dr. Xiomy Lennon IG % 0.4 % Normal 0.0-0.5 [facility] Comment on above: Performed By: #### P T, PTT #### [facility] [address] [place] [address] Dr. Xiomy Lennon LYMPH # 1.2 103/ul Normal 1.2-3.8 [facility] Comment on above: Performed By: #### P T, PTT #### [facility] [address] [place] [address] Dr. Xiomy Lennon Lymphocytes/100 WBC (Bld) 11.4 % Critically low 20.5-60.0 [facility] Comment on above: Performed By: #### P T, PTT #### [facility] [address] [place] [address] Dr. Xiomy Lennon MANUAL DIFF REQ NO Normal [facility] Comment on above: Performed By: #### P T, PTT #### [facility] [address] [place] [address] Dr. Xiomy Lennon MCH (RBC) [Entitic mass] 29.7 pg Normal 26.7-34.0 [facility] Comment on above: Performed By: #### P T, PTT #### [facility] [facility] [address] [place] [address] Dr. Xiomy Lennon MCHC (RBC) [Mass/Vol] 32.3 g/dL Normal 29.9-35.2 [facility] Comment on above: Performed By: #### P T, PTT #### [facility] [address] [place] [address] Dr. Xiomy Lennon MCV (RBC) [Entitic vol] 92.1 fL Normal 81.0-99.0 [facility] Comment on above: Performed By: #### P T, PTT #### [facility] [address] [place] [address] Dr. Xiomy Lennon MONO # 0.8 103/ul Normal 0.3-0.8 [facility] Comment on above: Performed By: #### P T, PTT #### [facility] [address] [place] [address] Dr. Xoimy Lennon Monocytes/100 WBC (Bld) 7.9 % Normal 1.7-12.0 [facility] Comment on above: Performed By: #### P T, PTT #### [facility] [address] [place] [address] Dr. Xiomy Lennon NEUT # 8.3 103/ul Critically high 1.4-6.5 [facility] Comment on above: Performed By: #### P T, PTT #### [facility] [address] [place] [address] Dr. Xiomy Lennon Neutrophils/100 WBC (Bld) 78.4 % Critically high 43.0-75.0 [facility] Comment on above: Performed By: #### P T, PTT #### [facility] [address] [place] [address] Dr. Xiomy Lennon Platelet mean volume (Bld) [Entitic vol] 11.0 fL Normal 9.5-13.5 [facility] Comment on above: Performed By: #### P T, PTT #### [facility] [address] [place] [address] Dr. Xiomy Lennon PLT 196 103/ul Normal 150-450 [facility] Comment on above: Performed By: #### P T, PTT #### [facility] [address] [place] [address] Dr. Xiomy Lennon RBC 4.71 106/ul Normal 4.20-5.40 [facility] Comment on above: Performed By: #### P T, PTT #### [facility] [address] [place] [address] Dr. Xiomy Lennon WBC 10.6 103/ul Normal 4.0-11.0 [facility] Comment on above: Performed By: #### P T, PTT #### [facility] [address] [place] [address] Dr. Xiomy Lennon LIPASEon 03-26-2022 Lipase [Catalytic activity/Vol] 92.0 U/L Normal 73.0-393.0 [facility] Comment on above: Performed By: #### P T, PTT #### [facility] [address] [place] [address] Dr. Xiomy Lennon PROF 14(COMP METB)on Albumin [Mass/Vol] 3.6 g/dL Normal 3.4-5.0 [facility] Comment on above: Performed By: #### P T, PTT #### [facility] [address] [place] [address] Dr. Xiomy Lennon Albumin/Globulin [Mass ratio] 0.7 {ratio} Normal [facility] Comment on above: Performed By: #### P T, PTT #### [facility] [address] [place] [address] Dr. Xiomy Lennon ALP [Catalytic activity/Vol] 78 U/L Normal 46-116 [facility] Comment on above: Performed By: #### P T, PTT #### [facility] [address] [place] [address] Dr. Xiomy Lennon ALT [Catalytic activity/Vol] 25 U/L Normal 14-59 [facility] Comment on above: Performed By: #### P T, PTT #### [facility] [address] [place] [address] Dr. Xiomy Lennon Anion gap [Moles/Vol] 9.4 mmol/L Normal [facility] Comment on above: Performed By: #### P T, PTT #### [facility] [address] [place] [address] Dr. Xiomy Lennon AST [Catalytic activity/Vol] 19 U/L Normal 15-37 [facility] Comment on above: Performed By: #### P T, PTT #### [facility] [address] [address] [address] Xiomy Lennon Bilirubin [Mass/Vol] 0.3 mg/dL Normal 0.2-1.0 [facility] Comment on above: Performed By: #### P T, PTT #### [facility] [address] [place] [address] Dr. Xiomy Lennon Calcium [Mass/Vol] 9.9 mg/dL Normal 8.5-10.1 [facility] Comment on above: Performed By: #### P T, PTT #### [facility] [address] [place] [address] Dr. Xiomy Lennon Chloride [Moles/Vol] 96 mmol/L Critically low 98-107 [facility] Comment on above: Performed By: #### P T, PTT #### [facility] [address] [place] [address] Dr. Xiomy Lennon CO2 [Moles/Vol] 34.6 mmol/L Critically high 21.0-32.0 [facility] Comment on above: Performed By: #### P T, PTT #### [facility] [address] [place] [address] Dr. Xiomy Lennon Creatinine [Mass/Vol] 0.93 mg/dL Normal 0.55-1.02 [facility] Comment on above: Performed By: #### P T, PTT #### [facility] [address] [place] [address] Dr. Xiomy Lennon EGFR-AF LIBERIAN >60 Normal >=60 [facility] Comment on above: Performed By: #### P T, PTT #### [facility] [address] [place] [address] Dr. Xiomy Lennon EGFR-NON AF LIBERIAN >60 Normal >=60 [facility] Comment on above: Performed By: #### P T, PTT #### [facility] [address] [place] [address] Dr. Xiomy Lennon Globulin (S) [Mass/Vol] 5.0 g/dL Normal [facility] Comment on above: Performed By: #### P T, PTT #### [facility] [address] [address] [address] Xiomy Lennon Glucose [Mass/Vol] 139 mg/dL Critically high 74-106 [facility] Comment on above: Performed By: #### P T, PTT #### [facility] [address] [place] [address] Dr. Xiomy Lennon Potassium [Moles/Vol] 4.0 mmol/L Normal 3.5-5.1 [facility] Comment on above: Performed By: #### P T, PTT #### [facility] [address] [place] [address] Dr. Xiomy Lennon Protein [Mass/Vol] 8.6 g/dL Critically high 6.4-8.2 [facility] Comment on above: Performed By: #### P T, PTT #### [facility] [address] [place] [address] Dr. Xiomy Lennon Sodium [Moles/Vol] 136 mmol/L Normal 136-145 [facility] Comment on above: Performed By: #### P T, PTT #### [facility] [address] [place] [address] Dr. Xiomy Lennon Urea nitrogen [Mass/Vol] 19.0 mg/dL Critically high 7.0-18.0 [facility] Comment on above: Performed By: #### P T, PTT #### [facility] [address] [place] [address] Dr. Xiomy Lennon Urea nitrogen/Creatinine [Mass ratio] 20.4 mg/mg Normal [facility] Comment on above: Performed By: #### P T, PTT #### [facility] [address] [place] [address] Dr. Xiomy Lennon PROTIMEon 03-26-2022 INR Coag (PPP) [Relative time] 0.99 {INR} Normal [facility] Comment on above: Performed By: #### P T, PTT #### [facility] [address] [place] [address] Dr. Xiomy Lennon INR GUIDELINES SEE BELOW Normal [facility] Comment on above: Result Comment: NIALL RED INR: 2.0 - 3.0 CONDITIONS NOT LISTED BELOW 2.5 - 3.5 FOR PROSTHETIC HEART VALVE REPLACEMENT 2.5 - 3.5 RECURRENT THROMBOSIS Performed By: #### P T, PTT #### [facility] [address] [address] [address] Xiomy Lennon PT Coag (PPP) [Time] 10.7 s Normal 9.0-11.6 [facility] Comment on above: Performed By: #### P T, PTT #### [facility] [address] [address] [address] Xiomy Lennon PTTon 03-26-2022 aPTT Coag (Bld) [Time] 26.9 s Normal 22.3-36.2 [facility] Comment on above: Performed By: #### P T, PTT #### [facility] [address] [address] [address] Xiomy Lennon TROPONIN, HIGH SENSITIVITYon 03-26-2022 HSTROP 8.0 pg/mL Normal 4.0-51.3 [facility] Comment on above: Result Comment: CUT- OFF POINTS HAVE BEEN ESTABLISHED BASED ON THE FOURTH UNIVERSAL DEFINITIONS OF MYOCARDIAL INFARCTION. THE UPPER REFERENCE LIMIT (URL) OF TROPONIN, DEFINED THE 99TH PERCENTILE OF cTnI DISTRIBUTION IN A REFERENCE POPULATION, HAS BEEN CONFIRMED THE DECISION THRESHOLD FOR TX DIAGNOSIS. Performed By: #### P T, PTT #### [facility] [address] [address] [address] Xiomy Lennon US SINGLE QUAD RT [...] by: KENDY HERRERA Date: 2022-03-26 19:58 Normal [facility] Basic Metabolic Panelon 07-01 Calcium [Mass/Vol] 9.3 mg/dL Normal 8.2-10.2 [facility] Comment on above: Performed By: #### C OVID 19 [facility], COVID-19 VALDEMAR, SOFIANEG #### [facility] [address] Chloride [Moles/Vol] 89 mmol/L Low 95-114 [facility] Comment on above: Performed By: #### C OVID 19 [facility], COVID-19 VALDEMAR, SOFIANEG #### [facility] [address] CO2 [Moles/Vol] 35.4 mmol/L High 22.0-30.0 [facility] Comment on above: Performed By: #### C PLEAS[place]ON 19 [facility], COVID-19 VALDEMAR, SOFIANEG #### [facility] [address] Creatinine [Mass/Vol] 0.81 mg/dL Normal 0.44-1.03 [facility] Comment on above: Performed By: #### C OVID 19 [facility], COVID-19 VALDEMAR, SOFIANEG #### [facility] [address] [id number] [facility] Creatinine Clr Calc Pharmacy 107.64 [facility] Comment on above: Performed By: #### C OVID 19 [facility], COVID-19 VALDEMAR, SOFIANEG #### [facility] [address] Estimated GFR ( Hilary > 60 [facility] Comment on above: Result Comment: GFR estimated reference range: According to KDOQI guidelines, <60 ml/min/1.73m2 is sufficient to diagnose a patient with chronic kidney disease. Performed By: #### C OVID 19 [facility], COVID-19 VALDEMAR, SOFIANEG #### [facility] [address] [place] [address] [place] Estimated GFR (Non- Am > 60 Normal [facility] Comment on above: Performed By: #### C P[place] 19 [facility], COVID-19 VALDEMAR, SOFIANEG #### [facility] [address] Glucose [Mass/Vol] 94 mg/dL Normal 70-100 [facility] Comment on above: Result Comment: [place] Glucose Reference Range is dependent on time and content of last meal. Glucose of more than 200 mg/dL in a nonstressed, ambulatory subject supports the diagnosis of Diabetes Mellitus. ADA recommended reference range Performed By: #### C P[place] 19 [facility], COVID-19 VALDEMAR, SOFIANEG #### [facility] [address] Potassium Normal 3.5-5.1 [facility] Comment on above: Result Comment: Spec imen hemolyzed, redraw requested Performed By: #### C PLEAS[place] 19 [facility], COVID-19 VALDEMAR, SOFIANEG #### [facility] [address] [place] [address] Sodium [Moles/Vol] 135 mmol/L Low 136-146 [facility] Comment on above: Performed By: #### C P[place] 19 [facility], COVID-19 VALDEMAR, SOFIANEG #### [address] Urea nitrogen [Mass/Vol] 19 mg/dL Normal 9-23 [facility] Comment on above: Performed By: #### C P[place] 19 [facility], COVID-19 VALDEMAR, SOFIANEG #### [address] Complete Blood Count Auto Di ffon 07-14-2021 Basophils (Bld) [#/Vol] 0.0 10*3/uL Normal 0.0-0.2 [facility] Comment on above: Result Comment: PERF ORMED BY: [place] [address] PATHOLOGIST CUSTOMER RETENTION REPRESENTATIVE OTILIA BAIRD M.D. Performed By: #### C BC, LACTIC, HS TROP, BMP #### [address] Basophils/100 WBC (Bld) 0.5 % Normal . [facility] Comment on above: Performed By: #### C BC, LACTIC, HS TROP, BMP #### [address] Eosinophils (Bld) [#/Vol] 0.1 10*3/uL Normal 0.0-0.45 [facility] Comment on above: Performed By: #### C BC, LACTIC, HS TROP, BMP #### [address] Eosinophils/100 WBC (Bld) 0.9 % Normal . [facility] Comment on above: Performed By: #### C BC, LACTIC, HS TROP, BMP #### [address] Erythrocyte distribution width (RBC) [Ratio] 18.2 % High 11.9-15.3 [facility] Comment on above: Performed By: #### C BC, LACTIC, HS TROP, BMP #### [address] Hematocrit (Bld) [Volume fraction] 41.6 % Normal 34.0-46.4 [facility] Comment on above: Performed By: #### C BC, LACTIC, HS TROP, BMP #### [address] Hemoglobin (Bld) [Mass/Vol] 13.8 g/dL Normal 11.8-15.4 [facility] Comment on above: Performed By: #### C BC, LACTIC, HS TROP, BMP #### [place] [address] [place] Lymphocytes (Bld) [#/Vol] 1.5 10*3/uL Normal 1.00-4.8 [facility] Comment on above: Performed By: #### C BC, LACTIC, HS TROP, BMP #### [place] [address] [place] Lymphocytes/100 WBC (Bld) 20.5 % Normal . [facility] Comment on above: Performed By: #### C BC, LACTIC, HS TROP, BMP #### [address] MCH (RBC) [Entitic mass] 29.0 pg Normal 24.7-34.3 [facility] Comment on above: Performed By: #### C BC, LACTIC, HS TROP, BMP #### [address] MCV (RBC) [Entitic vol] 87.8 fL Normal 80-100 [facility] Comment on above: Performed By: #### C BC, LACTIC, HS TROP, BMP #### [address] Mean Corpuscular HGB Conc 33.0 g/dL Normal 32.0-35.0 [facility] Comment on above: Performed By: #### C BC, LACTIC, HS TROP, BMP #### [address] Monocytes (Bld) [#/Vol] 0.8 10*3/uL Normal 0.0-0.8 [facility] Comment on above: Performed By: #### C BC, LACTIC, HS TROP, BMP #### [address] Monocytes/100 WBC (Bld) 11.4 % Normal . [facility] Comment on above: Performed By: #### C BC, LACTIC, HS TROP, BMP #### [address] Neutrophils (Bld) [#/Vol] 4.8 10*3/uL Normal 1.8-7.7 [facility] Comment on above: Performed By: #### C BC, LACTIC, HS TROP, BMP #### [address] Neutrophils/100 WBC (Bld) 66.7 % Normal . [facility] Comment on above: Performed By: #### C BC, LACTIC, HS TROP, BMP #### [place] [id number] [place] Nucleated RBC/100 WBC (Bld) [Ratio] 0.1 % Normal 0-0.5 [facility] Comment on above: Performed By: #### C BC, LACTIC, HS TROP, BMP #### [address] Platelet mean volume (Bld) [Entitic vol] 9.5 fL Normal 6.3-10.7 [facility] Comment on above: Performed By: #### C BC, LACTIC, HS TROP, BMP #### [address] Platelets (Bld) [#/Vol] 153 10*3/uL Normal 150-450 [facility] Comment on above: Performed By: #### C BC, LACTIC, HS TROP, BMP #### [address] RBC (Bld) [#/Vol] 4.74 10*6/uL Normal 3.60-5.00 [facility] Comment on above: Performed By: #### C BC, LACTIC, HS TROP, BMP #### [address] WBC (Bld) [#/Vol] 7.1 10*3/uL Normal 4.5-11.0 [facility] Comment on above: Performed By: #### C BC, LACTIC, HS TROP, BMP #### [address] Glucose Poct Glucometerson 0 07-14-2021 Commemt1 Glu2: Cleaned Meter Normal [facility] Comment on above: Result Comment: PERF ORMED BY: [place] [address] PATHOLOGIST CUSTOMER RETENTION REPRESENTATIVE OTILIA BAIRD M.D. Performed By: #### C OVID 19 [facility], COVID-19 VALDEMAR, SOFIANEG #### [address] Glucose [Mass/Vol] 130 mg/dL Normal [facility] Comment on above: Result Comment: [place] om Glucose Reference Range is dependent on time and content of last meal. Glucose of more than 200 mg/dL in a nonstressed, ambulatory subject supports the diagnosis of Diabetes Mellitus. Performed By: #### C OVID 19 [facility], COVID-19 VALDEMAR, SOFIANEG #### [facility] [address] Commemt1 Glu2: Cleaned Meter Normal [facility] Comment on above: Result Comment: PERF ORMED BY: [place] [address] PATHOLOGIST CUSTOMER RETENTION REPRESENTATIVE OTILIA BAIRD M.D. Performed By: #### C BC, LACTIC, HS TROP, BMP #### [address] Glucose [Mass/Vol] 102 mg/dL Normal [facility] Comment on above: Result Comment: [place] om Glucose Reference Range is dependent on time and content of last meal. Glucose of more than 200 mg/dL in a nonstressed, ambulatory subject supports the diagnosis of Diabetes Mellitus. Performed By: #### C BC, LACTIC, HS TROP, BMP #### [address] Commemt1 Glu2: Cleaned Meter Normal [facility] Comment on above: Result Comment: PERF ORMED BY: [place] [address] PATHOLOGIST CUSTOMER RETENTION REPRESENTATIVE OTILIA BAIRD M.D. Performed By: #### C BC, LACTIC, HS TROP, BMP #### [address] Glucose [Mass/Vol] 130 mg/dL Normal [facility] Comment on above: Result Comment: [place] om Glucose Reference Range is dependent on time and content of last meal. Glucose of more than 200 mg/dL in a nonstressed, ambulatory subject supports the diagnosis of Diabetes Mellitus. Performed By: #### C BC, LACTIC, HS TROP, BMP #### [place] [id number] [place] Magnesiumon 07-14-2021 Magnesium Normal 1.6-2.6 [facility] Comment on above: Result Comment: Spec imen hemolyzed, redraw requested PERFORMED BY: [place] [address] PATHOLOGIST CUSTOMER RETENTION REPRESENTATIVE OTILIA BAIRD M.D. Performed By: #### C OVID 19 [facility], COVID-19 VALDEMAR, SOFIANEG #### [place] [address] [place] Redraw Magnesiumon 1 Magnesium [Mass/Vol] 1.9 mg/dL Normal 1.6-2.6 [facility] Comment on above: Order Comment: Speci men hemolyzed, redraw requested Result Comment: PERF ORMED BY: [place] [address] PATHOLOGIST CUSTOMER RETENTION REPRESENTATIVE OTILIA BAIRD M.D. Performed By: #### C OVID 19 [facility], COVID-19 VALDEMAR, SOFIANEG #### [place] [address] [place] Redraw Potassiumon 1 Potassium [Moles/Vol] 3.7 mmol/L Normal 3.5-5.1 [facility] Comment on above: Order Comment: Speci men hemolyzed, redraw requested Performed By: #### C OVID 19 [facility], COVID-19 VALDEMAR, SOFIANEG #### [address] Basic Metabolic Panelon 07-01 Calcium [Mass/Vol] 9.3 mg/dL Normal 8.2-10.2 [facility] Comment on above: Performed By: #### C BC, LACTIC, HS TROP, BMP #### [place] [phone] [place] Chloride [Moles/Vol] 92 mmol/L Low 95-114 [facility] Comment on above: Performed By: #### C BC, LACTIC, HS TROP, BMP #### [place] [address] [place] CO2 [Moles/Vol] 37.7 mmol/L High 22.0-30.0 [facility] Comment on above: Performed By: #### C BC, LACTIC, HS TROP, BMP #### [address] Creatinine [Mass/Vol] 0.80 mg/dL Normal 0.44-1.03 [facility] Comment on above: Performed By: #### C BC, LACTIC, HS TROP, BMP #### [address] Creatinine Clr Calc Pharmacy 105.32 [facility] Comment on above: Result Comment: PERF ORMED BY: [place] [address] PATHOLOGIST CUSTOMER RETENTION REPRESENTATIVE OTILIA BAIRD M.D. Performed By: #### C BC, LACTIC, HS TROP, BMP #### [address] Estimated GFR ( Hilary > 60 [facility] Comment on above: Result Comment: GFR estimated reference range: According to KDOQI guidelines, <60 ml/min/1.73m2 is sufficient to diagnose a patient with chronic kidney disease. Performed By: #### C BC, LACTIC, HS TROP, BMP #### [address] Estimated GFR (Non- Am > 60 [facility] Comment on above: Performed By: #### C BC, LACTIC, HS TROP, BMP #### [address] Glucose [Mass/Vol] 94 mg/dL Normal 70-100 [facility] Comment on above: Result Comment: [place] om Glucose Reference Range is dependent on time and content of last meal. Glucose of more than 200 mg/dL in a nonstressed, ambulatory subject supports the diagnosis of Diabetes Mellitus. ADA recommended reference range Performed By: #### C BC, LACTIC, HS TROP, BMP #### [address] Potassium [Moles/Vol] 3.6 mmol/L Normal 3.5-5.1 [facility] Comment on above: Performed By: #### C BC, LACTIC, HS TROP, BMP #### [facility] [address] Sodium [Moles/Vol] 139 mmol/L Normal 136-146 [facility] Comment on above: Performed By: #### C BC, LACTIC, HS TROP, BMP #### [facility] [address] [id number] [facility] Urea nitrogen [Mass/Vol] 18 mg/dL Normal 9-23 [facility] Comment on above: Performed By: #### C BC, LACTIC, HS TROP, BMP #### [address] Glucose Poct Glucometerson 0 07-13-2021 Commemt1 Glu2: Cleaned Meter [facility] Comment on above: Result Comment: PERF ORMED BY: [place] [address] PATHOLOGIST CUSTOMER RETENTION REPRESENTATIVE OTILIA BAIRD M.D. Performed By: #### C BC, LACTIC, HS TROP, BMP #### [address] Glucose [Mass/Vol] 180 mg/dL Normal [facility] Comment on above: Result Comment: [facility] Glucose Reference Range is dependent on time and content of last meal. Glucose of more than 200 mg/dL in a nonstressed, ambulatory subject supports the diagnosis of Diabetes Mellitus. Performed By: #### C BC, LACTIC, HS TROP, BMP #### [address] Commemt1 Glu2: Cleaned Meter [facility] Comment on above: Result Comment: PERF ORMED BY: [place] [address] PATHOLOGIST CUSTOMER RETENTION REPRESENTATIVE OTILIA BAIRD M.D. Performed By: #### C BC, LACTIC, HS TROP, BMP #### [place] [phone] [place] Glucose [Mass/Vol] 128 mg/dL Normal [facility] Comment on above: Result Comment: [place] om Glucose Reference Range is dependent on time and content of last meal. Glucose of more than 200 mg/dL in a nonstressed, ambulatory subject supports the diagnosis of Diabetes Mellitus. Performed By: #### C BC, LACTIC, HS TROP, BMP #### [address] Glucose [Mass/Vol] 95 mg/dL Normal [facility] Comment on above: Result Comment: [place] om Glucose Reference Range is dependent on time and content of last meal. Glucose of more than 200 mg/dL in a nonstressed, ambulatory subject supports the diagnosis of Diabetes Mellitus. PERFORMED BY: [place] [address] PATHOLOGIST CUSTOMER RETENTION REPRESENTATIVE OTILIA BAIRD M.D. Performed By: #### C BC, LACTIC, HS TROP, BMP #### [address] Basic Metabolic Panelon 07-01-2020 Calcium [Mass/Vol] 9.3 mg/dL Normal 8.2-10.2 [facility] Comment on above: Performed By: #### C BC, LACTIC, HS TROP, BMP #### [address] Chloride [Moles/Vol] 86 mmol/L Low 95-114 [facility] Comment on above: Performed By: #### C BC, LACTIC, HS TROP, BMP #### [address] CO2 [Moles/Vol] 43.4 mmol/L High 22.0-30.0 [facility] Comment on above: Performed By: #### C BC, LACTIC, HS TROP, BMP #### [address] Creatinine [Mass/Vol] 0.86 mg/dL Normal 0.44-1.03 [facility] Comment on above: Performed By: #### C BC, LACTIC, HS TROP, BMP #### [address] [address] [place] Creatinine Clr Calc Pharmacy 103.59 [facility] Comment on above: Result Comment: PERF ORMED BY: [place] [address] PATHOLOGIST CUSTOMER RETENTION REPRESENTATIVE OTILIA BAIRD M.D. Performed By: #### C BC, LACTIC, HS TROP, BMP #### [address] Estimated GFR ( Hilary > 60 [facility] Comment on above: Result Comment: GFR estimated reference range: According to KDOQI guidelines, <60 ml/min/1.73m2 is sufficient to diagnose a patient with chronic kidney disease. Performed By: #### C BC, LACTIC, HS TROP, BMP #### [address] Estimated GFR (Non- Am > 60 [facility] Comment on above: Performed By: #### C BC, LACTIC, HS TROP, BMP #### [address] Glucose [Mass/Vol] 94 mg/dL Normal 70-100 [facility] Comment on above: Result Comment: [place] Glucose Reference Range is dependent on time and content of last meal. Glucose of more than 200 mg/dL in a nonstressed, ambulatory subject supports the diagnosis of Diabetes Mellitus. ADA recommended reference range Performed By: #### C BC, LACTIC, HS TROP, BMP #### [address] Potassium [Moles/Vol] 3.6 mmol/L Normal 3.5-5.1 [facility] Comment on above: Performed By: #### C BC, LACTIC, HS TROP, BMP #### [place] [address] [place] Sodium [Moles/Vol] 139 mmol/L Normal 136-146 [facility] Comment on above: Performed By: #### C BC, LACTIC, HS TROP, BMP #### [address] Urea nitrogen [Mass/Vol] 18 mg/dL Normal 9-23 [facility] Comment on above: Performed By: #### C BC, LACTIC, HS TROP, BMP #### [address] Glucose Poct Glucometerson 0 07-12-2021 Glucose [Mass/Vol] 138 mg/dL Normal [facility] Comment on above: Result Comment: [place] om Glucose Reference Range is dependent on time and content of last meal. Glucose of more than 200 mg/dL in a nonstressed, ambulatory subject supports the diagnosis of Diabetes Mellitus. PERFORMED BY: [place] [address] PATHOLOGIST CUSTOMER RETENTION REPRESENTATIVE OTILIA BAIRD M.D. Performed By: #### C BC, LACTIC, HS TROP, BMP #### [address] Commemt1 Glu2: Cleaned Meter Normal [facility] Comment on above: Result Comment: PERF ORMED BY: [place] [address] PATHOLOGIST CUSTOMER RETENTION REPRESENTATIVE OTILIA BAIRD M.D. Performed By: #### C BC, LACTIC, HS TROP, BMP #### [address] Glucose [Mass/Vol] 255 mg/dL Normal [facility] Comment on above: Result Comment: [facility] Glucose Reference Range is dependent on time and content of last meal. Glucose of more than 200 mg/dL in a nonstressed, ambulatory subject supports the diagnosis of Diabetes Mellitus. Performed By: #### C BC, LACTIC, HS TROP, BMP #### [address] Commemt1 Glu2: Cleaned Meter [facility] Comment on above: Result Comment: PERF ORMED BY: [place] [address] PATHOLOGIST CUSTOMER RETENTION REPRESENTATIVE OTILIA BAIRD M.D. Performed By: #### C BC, LACTIC, HS TROP, BMP #### [address] [address] [place] Glucose [Mass/Vol] 133 mg/dL Normal [facility] Comment on above: Result Comment: [place] om Glucose Reference Range is dependent on time and content of last meal. Glucose of more than 200 mg/dL in a nonstressed, ambulatory subject supports the diagnosis of Diabetes Mellitus. Performed By: #### C BC, LACTIC, HS TROP, BMP #### [address] Commemt1 Glu2: Cleaned Meter Normal [facility] Comment on above: Result Comment: PERF ORMED BY: [place] [address] PATHOLOGIST CUSTOMER RETENTION REPRESENTATIVE OTILIA BAIRD M.D. Performed By: #### C BC, LACTIC, HS TROP, BMP #### [address] Glucose [Mass/Vol] 100 mg/dL Normal [facility] Comment on above: Result Comment: [place] om Glucose Reference Range is dependent on time and content of last meal. Glucose of more than 200 mg/dL in a nonstressed, ambulatory subject supports the diagnosis of Diabetes Mellitus. Performed By: #### C BC, LACTIC, HS TROP, BMP #### [address] Basic Metabolic Panelon 07-01 Calcium [Mass/Vol] 9.5 mg/dL Normal 8.2-10.2 [facility] Comment on above: Performed By: #### C BC, LACTIC, HS TROP, BMP #### [place] [address] [place] Chloride [Moles/Vol] 85 mmol/L Low 95-114 [facility] Comment on above: Performed By: #### C BC, LACTIC, HS TROP, BMP #### [address] CO2 [Moles/Vol] 39.6 mmol/L High 22.0-30.0 [facility] Comment on above: Performed By: #### C BC, LACTIC, HS TROP, BMP #### [facility] [address] Creatinine [Mass/Vol] 0.99 mg/dL Normal 0.44-1.03 [facility] Comment on above: Performed By: #### C BC, LACTIC, HS TROP, BMP #### [facility] [address] Creatinine Clr Calc Pharmacy 89.99 [facility] Comment on above: Result Comment: PERF ORMED BY: [place] [address] PATHOLOGIST CUSTOMER RETENTION REPRESENTATIVE OTILIA BAIRD M.D. Performed By: #### C BC, LACTIC, HS TROP, BMP #### [address] Estimated GFR ( Hilary > 60 [facility] Comment on above: Result Comment: GFR estimated reference range: According to KDOQI guidelines, <60 ml/min/1.73m2 is sufficient to diagnose a patient with chronic kidney disease. Performed By: #### C BC, LACTIC, HS TROP, BMP #### [facility] [address] Estimated GFR (Non- Am 58 [facility] Comment on above: Performed By: #### C BC, LACTIC, HS TROP, BMP #### [address] Glucose [Mass/Vol] 189 mg/dL High 70-100 [facility] Comment on above: Result Comment: [place] Glucose Reference Range is dependent on time and content of last meal. Glucose of more than 200 mg/dL in a nonstressed, ambulatory subject supports the diagnosis of Diabetes Mellitus. ADA recommended reference range Performed By: #### C BC, LACTIC, HS TROP, BMP #### [facility] [address] Potassium [Moles/Vol] 4.3 mmol/L Normal 3.5-5.1 [facility] Comment on above: Performed By: #### C BC, LACTIC, HS TROP, BMP #### [facility] [address] Sodium [Moles/Vol] 135 mmol/L Low 136-146 [facility] Comment on above: Performed By: #### C BC, LACTIC, HS TROP, BMP #### [address] Urea nitrogen [Mass/Vol] 21 mg/dL Normal 07-23 [facility] Comment on above: Performed By: #### C BC, LACTIC, HS TROP, BMP #### [address] Glucose Poct Glucometerson 0 07-11-2021 Commemt1 Glu2: Cleaned Meter [facility] Comment on above: Result Comment: PERF ORMED BY: [place] [address] PATHOLOGIST CUSTOMER RETENTION REPRESENTATIVE OTILIA BAIRD M.D. Performed By: #### C BC, LACTIC, HS TROP, BMP #### [address] Glucose [Mass/Vol] 202 mg/dL Normal [facility] Comment on above: Result Comment: [place] om Glucose Reference Range is dependent on time and content of last meal. Glucose of more than 200 mg/dL in a nonstressed, ambulatory subject supports the diagnosis of Diabetes Mellitus. Performed By: #### C BC, LACTIC, HS TROP, BMP #### [address] Commemt1 Glu2: Cleaned Meter [facility] Comment on above: Result Comment: PERF ORMED BY: [place] [address] PATHOLOGIST CUSTOMER RETENTION REPRESENTATIVE OTILIA BAIRD M.D. Performed By: #### C BC, LACTIC, HS TROP, BMP #### [address] Glucose [Mass/Vol] 249 mg/dL Normal [facility] Comment on above: Result Comment: [place] om Glucose Reference Range is dependent on time and content of last meal. Glucose of more than 200 mg/dL in a nonstressed, ambulatory subject supports the diagnosis of Diabetes Mellitus. Performed By: #### C BC, LACTIC, HS TROP, BMP #### [address] Commemt1 Glu2: Cleaned Meter [facility] Comment on above: Result Comment: PERF ORMED BY: [place] [address] PATHOLOGIST CUSTOMER RETENTION REPRESENTATIVE OTILIA BAIRD M.D. Performed By: #### C BC, LACTIC, HS TROP, BMP #### [address] Glucose [Mass/Vol] 141 mg/dL Normal [facility] Comment on above: Result Comment: [place] om Glucose Reference Range is dependent on time and content of last meal. Glucose of more than 200 mg/dL in a nonstressed, ambulatory subject supports the diagnosis of Diabetes Mellitus. Performed By: #### C BC, LACTIC, HS TROP, BMP #### [address] Commemt1 Glu2: Cleaned Meter [facility] Comment on above: Result Comment: PERF ORMED BY: [place] [address] PATHOLOGIST CUSTOMER RETENTION REPRESENTATIVE OTILIA BAIRD M.D. Performed By: #### C BC, LACTIC, HS TROP, BMP #### [address] Glucose [Mass/Vol] 103 mg/dL Normal [facility] Comment on above: Result Comment: [place] om Glucose Reference Range is dependent on time and content of last meal. Glucose of more than 200 mg/dL in a nonstressed, ambulatory subject supports the diagnosis of Diabetes Mellitus. Performed By: #### C BC, LACTIC, HS TROP, BMP #### [address] Arterial Blood G[place] 021 ABG Base Excess 17.0 mmol/L High -3.0-3.0 [facility] Comment on above: Performed By: #### C BC, LACTIC, HS TROP, BMP #### [facility] [address] ABG Frac Inspired O2 60 % Normal [facility] Comment on above: Performed By: #### C BC, LACTIC, HS TROP, BMP #### [facility] [address] ABG Oxygen Content 7.6 mmol/L Normal 6.6-9.7 [facility] Comment on above: Performed By: #### C BC, LACTIC, HS TROP, BMP #### [facility] [address] ABG Oxygen Saturation 94.3 % Low 95.0-100.0 [facility] Comment on above: Performed By: #### C BC, LACTIC, HS TROP, BMP #### [facility] [address] [place] [address] ABG PCO2 90.7 mm[Hg] Off scale high 35.0-45.0 [facility] Comment on above: Performed By: #### C BC, LACTIC, HS TROP, BMP #### [facility] [address] [place] [address] ABG PH 7.34 Low 7.35-7.45 [facility] Comment on above: Performed By: #### C BC, LACTIC, HS TROP, BMP #### [facility] [address] [place] [address] ABG PO2 77.7 mm[Hg] Low 80.0-100.0 [facility] Comment on above: Performed By: #### C BC, LACTIC, HS TROP, BMP #### [facility] [address] [place] [address] [place] CO2 [Moles/Vol] 50.1 mmol/L High 23.0-27.0 [facility] Comment on above: Performed By: #### C BC, LACTIC, HS TROP, BMP #### [facility] [address] [place] [address] [place] HCO3 (Bld) [Moles/Vol] 47.3 mmol/L High 23.0-29.0 [facility] Comment on above: Performed By: #### C BC, LACTIC, HS TROP, BMP #### [facility] [address] [place] [address] Respiratory Critical Normal [facility] Comment on above: Result Comment: Crit ical Value called on: 07/10/2021 at 05:01 PERFORMED BY: [place] [address] PATHOLOGIST CUSTOMER RETENTION REPRESENTATIVE OTILIA BAIRD M.D. Performed By: #### C BC, LACTIC, HS TROP, BMP #### [facility] [address] [place] [address] Set Respiratory Rate 12 Normal [facility] Comment on above: Performed By: #### C BC, LACTIC, HS TROP, BMP #### [facility] [address] [place] [address] VBG Draw Site Right Radial Normal [facility] Comment on above: Performed By: #### C BC, LACTIC, HS TROP, BMP #### [facility] [address] [place] [address] Basic Metabolic Panelon 07-01 Calcium [Mass/Vol] 9.4 mg/dL Normal 8.2-10.2 [facility] Comment on above: Performed By: #### C BC, LACTIC, HS TROP, BMP #### [facility] [address] [place] [address] Chloride [Moles/Vol] 88 mmol/L Low 95-114 [facility] Comment on above: Performed By: #### C BC, LACTIC, HS TROP, BMP #### [facility] [address] [place] [address] CO2 [Moles/Vol] 41.2 mmol/L High 22.0-30.0 [facility] Comment on above: Performed By: #### C BC, LACTIC, HS TROP, BMP #### [facility] [address] [place] [address] Creatinine [Mass/Vol] 0.74 mg/dL Normal 0.44-1.03 [facility] Comment on above: Performed By: #### C BC, LACTIC, HS TROP, BMP #### [address] Creatinine Clr Calc Pharmacy 122.16 [facility] Comment on above: Result Comment: PERF ORMED BY: [place] [address] PATHOLOGIST CUSTOMER RETENTION REPRESENTATIVE OTILIA BAIRD M.D. Performed By: #### C BC, LACTIC, HS TROP, BMP #### [address] Estimated GFR ( Hilary > 60 [facility] Comment on above: Result Comment: [place] estimated reference range: According to KDOQI guidelines, <60 ml/min/1.73m2 is sufficient to diagnose a patient with chronic kidney disease. Performed By: #### C BC, LACTIC, HS TROP, BMP #### [address] Estimated GFR (Non- Am > 60 [facility] Comment on above: Performed By: #### C BC, LACTIC, HS TROP, BMP #### [address] Glucose [Mass/Vol] 94 mg/dL Normal 70-100 [facility] Comment on above: Result Comment: [place] Glucose Reference Range is dependent on time and content of last meal. Glucose of more than 200 mg/dL in a nonstressed, ambulatory subject supports the diagnosis of Diabetes Mellitus. ADA recommended reference range Performed By: #### C BC, LACTIC, HS TROP, BMP #### [address] Potassium [Moles/Vol] 3.9 mmol/L Normal 3.5-5.1 [facility] Comment on above: Performed By: #### C BC, LACTIC, HS TROP, BMP #### [address] Sodium [Moles/Vol] 138 mmol/L Normal 136-146 [facility] Comment on above: Performed By: #### C BC, LACTIC, HS TROP, BMP #### [address] [place] [address] [facility] Urea nitrogen [Mass/Vol] 15 mg/dL Normal 9-23 [facility] Comment on above: Performed By: #### C BC, LACTIC, HS TROP, BMP #### [facility] [address] [place] [id number] [facility] ECH echo transthoracicon ECH echo transthoracic [facility] [address] [place] [address] [place] [address] Echocardiogram Signed Patient: Sis Moore MR#: [id number] : 1965 Acct:[id number] Age/Sex: 55 / F ADM Date: 07/09/21 Loc: Room: [address] [place] [id number] Type: ADM IN Attending Dr: Colby Camara [...] MD 07/10/21 1037 Signed By: 07/10/21 1324 [facility] Glucose Poct Glucometerson 0 07-10-2021 Commemt1 Glu2: Cleaned Meter [facility] Comment on above: Result Comment: PERF ORMED BY: [place] [address] PATHOLOGIST CUSTOMER RETENTION REPRESENTATIVE OTILIA BAIRD M.D. Performed By: #### C BC, LACTIC, HS TROP, BMP #### [address] Glucose [Mass/Vol] 124 mg/dL [facility] Comment on above: Result Comment: [place] Glucose Reference Range is dependent on time and content of last meal. Glucose of more than 200 mg/dL in a nonstressed, ambulatory subject supports the diagnosis of Diabetes Mellitus. Performed By: #### C BC, LACTIC, HS TROP, BMP #### [address] Commemt1 Glu2: Cleaned Meter [facility] Comment on above: Result Comment: PERF ORMED BY: [place] [address] PATHOLOGIST CUSTOMER RETENTION REPRESENTATIVE OTILIA BAIRD M.D. Performed By: #### C BC, LACTIC, HS TROP, BMP #### [address] Glucose [Mass/Vol] 293 mg/dL Normal [facility] Comment on above: Result Comment: [place] om Glucose Reference Range is dependent on time and content of last meal. Glucose of more than 200 mg/dL in a nonstressed, ambulatory subject supports the diagnosis of Diabetes Mellitus. Performed By: #### C BC, LACTIC, HS TROP, BMP #### [address] Commemt1 Glu2: Cleaned Meter [facility] Comment on above: Result Comment: PERF ORMED BY: [place] [address] PATHOLOGIST CUSTOMER RETENTION REPRESENTATIVE OTILIA BAIRD M.D. Performed By: #### C BC, LACTIC, HS TROP, BMP #### [place] [address] [place] Glucose [Mass/Vol] 140 mg/dL Normal [facility] Comment on above: Result Comment: [place] om Glucose Reference Range is dependent on time and content of last meal. Glucose of more than 200 mg/dL in a nonstressed, ambulatory subject supports the diagnosis of Diabetes Mellitus. Performed By: #### C BC, LACTIC, HS TROP, BMP #### [facility] [address] [place] [address] [place] Glucose [Mass/Vol] 105 mg/dL Normal [facility] Comment on above: Result Comment: [place] om Glucose Reference Range is dependent on time and content of last meal. Glucose of more than 200 mg/dL in a nonstressed, ambulatory subject supports the diagnosis of Diabetes Mellitus. PERFORMED BY: [place] [address] PATHOLOGIST CUSTOMER RETENTION REPRESENTATIVE OTILIA BAIRD M.D. Performed By: #### C BC, LACTIC, HS TROP, BMP #### [facility] [address] B-Type Natriuretic Peptideon 07-09-2021 Natriuretic peptide B (Bld) [Mass/Vol] 121.0 pg/mL High 5-100 [facility] Comment on above: Result Comment: PERF ORMED BY: [place] [address] PATHOLOGIST CUSTOMER RETENTION REPRESENTATIVE OTILIA BAIRD M.D. Performed By: #### C BC, LACTIC, HS TROP, BMP #### [facility] [address] [place] [address] Basic Metabolic Panelon Calcium [Mass/Vol] 9.0 mg/dL Normal 8.2-10.2 [facility] Comment on above: Performed By: #### C BC, LACTIC, HS TROP, BMP #### [facility] [address] [place] [address] [place] Chloride [Moles/Vol] 92 mmol/L Low 95-114 [facility] Comment on above: Performed By: #### C BC, LACTIC, HS TROP, BMP #### [facility] [address] [place] [address] CO2 [Moles/Vol] 36.9 mmol/L High 22.0-30.0 [facility] Comment on above: Performed By: #### C BC, LACTIC, HS TROP, BMP #### [facility] [address] [place] [address] [place] Creatinine [Mass/Vol] 0.66 mg/dL Normal 0.44-1.03 [facility] Comment on above: Performed By: #### C BC, LACTIC, HS TROP, BMP #### [facility] [address] [place] [address] [place] Creatinine Clr Calc Pharmacy 137.69 Normal [facility] Comment on above: Result Comment: PERF ORMED BY: [place] [address] PATHOLOGIST CUSTOMER RETENTION REPRESENTATIVE OTILIA BAIRD M.D. Performed By: #### C BC, LACTIC, HS TROP, BMP #### [address] Estimated GFR ( Hilary > 60 [facility] Comment on above: Result Comment: G[place] estimated reference range: According to KDOQI guidelines, <60 ml/min/1.73m2 is sufficient to diagnose a patient with chronic kidney disease. Performed By: #### C BC, LACTIC, HS TROP, BMP #### [address] Estimated GFR (Non- Am > 60 Normal [facility] Comment on above: Performed By: #### C BC, LACTIC, HS TROP, BMP #### [address] Glucose [Mass/Vol] 119 mg/dL High 70-100 [facility] Comment on above: Result Comment: [place] om Glucose Reference Range is dependent on time and content of last meal. Glucose of more than 200 mg/dL in a nonstressed, ambulatory subject supports the diagnosis of Diabetes Mellitus. ADA recommended reference range Performed By: #### C BC, LACTIC, HS TROP, BMP #### [address] Potassium [Moles/Vol] 4.5 mmol/L Normal 3.5-5.1 [facility] Comment on above: Performed By: #### C BC, LACTIC, HS TROP, BMP #### [place] [address] [place] Sodium [Moles/Vol] 137 mmol/L Normal 136-146 [facility] Comment on above: Performed By: #### C BC, LACTIC, HS TROP, BMP #### [place] [address] [place] Urea nitrogen [Mass/Vol] 9 mg/dL Normal 9-23 [facility] Comment on above: Performed By: #### C BC, LACTIC, HS TROP, BMP #### [address] [place] [address] [facility] COVID-19 Antigenon 1 COVID-19 Antigen Healthcare Worker?: [...] its performance Valdemar Disclaimer characteristic determined by [employer] and Valdemar Disclaimer validated at [facility]. This Valdemar Disclaimer test has not been [...] Emergency Use Authorization for Coronavirus Valdemar Disclaimer isease-2018 during the Public Health Emergency) Valdemar Disclaimer [...] is terminated or revoked sooner. PERFORMED BY: [place] [address] PATHOLOGIST CUSTOMER RETENTION REPRESENTATIVE OTILIA BAIRD M.D. Normal [facility] Comment on above: Performed By: #### C OVID 19 [facility], COVID-19 VALDEMAR, SOFIANEG #### [address] [facility] SARS-CoV-2 (COVID-19) RNA PANDA+probe Ql (Unsp spec) Negative Normal Negative [facility] Comment on above: Order Comment: Healt hcare Worker?: N Result Comment: Testing for SARS-CoV-2 by RT-PCR This test was developed and its performance characteristics determined by [employer] and validated at the [facility]. This test has not been FDA cleared [...] is terminated or revoked sooner. PERFORMED BY: [place] [address] PATHOLOGIST CUSTOMER RETENTION REPRESENTATIVE OTILIA BAIRD M.D. Performed By: #### C OVID 19 [facility], COVID-19 VALDEMAR, SOFIANEG #### [address] Complete Blood Count Auto Di ffon 07-09-2021 Basophils (Bld) [#/Vol] 0.0 10*3/uL Normal 0.0-0.2 [facility] Comment on above: Result Comment: PERF ORMED BY: [place] [address] PATHOLOGIST CUSTOMER RETENTION REPRESENTATIVE OTILIA BAIRD M.D. Performed By: #### C BC, LACTIC, HS TROP, BMP #### [address] Basophils/100 WBC (Bld) 0.4 % Normal . [facility] Comment on above: Performed By: #### C BC, LACTIC, HS TROP, BMP #### [address] Eosinophils (Bld) [#/Vol] 0.2 10*3/uL Normal 0.0-0.45 [facility] Comment on above: Performed By: #### C BC, LACTIC, HS TROP, BMP #### [address] Eosinophils/100 WBC (Bld) 2.5 % Normal . [facility] Comment on above: Performed By: #### C BC, LACTIC, HS TROP, BMP #### [address] [place] [address] [place] Erythrocyte distribution width (RBC) [Ratio] 18.9 % High 11.9-15.3 [facility] Comment on above: Performed By: #### C BC, LACTIC, HS TROP, BMP #### [facility] [address] Hematocrit (Bld) [Volume fraction] 39.5 % Normal 34.0-46.4 [facility] Comment on above: Performed By: #### C BC, LACTIC, HS TROP, BMP #### [address] Hemoglobin (Bld) [Mass/Vol] 12.8 g/dL Normal 11.8-15.4 [facility] Comment on above: Performed By: #### C BC, LACTIC, HS TROP, BMP #### [address] Lymphocytes (Bld) [#/Vol] 0.7 10*3/uL Low 1.00-4.8 [facility] Comment on above: Performed By: #### C BC, LACTIC, HS TROP, BMP #### [address] Lymphocytes/100 WBC (Bld) 9.3 % Normal . [facility] Comment on above: Performed By: #### C BC, LACTIC, HS TROP, BMP #### [address] MCH (RBC) [Entitic mass] 28.8 pg Normal 24.7-34.3 [facility] Comment on above: Performed By: #### C BC, LACTIC, HS TROP, BMP #### [address] MCV (RBC) [Entitic vol] 89.1 fL Normal 80-100 [facility] Comment on above: Performed By: #### C BC, LACTIC, HS TROP, BMP #### [address] Mean Corpuscular HGB Conc 32.4 g/dL Normal 32.0-35.0 [facility] Comment on above: Performed By: #### C BC, LACTIC, HS TROP, BMP #### [facility] [address] [place] [address] [place] Monocytes (Bld) [#/Vol] 0.7 10*3/uL Normal 0.0-0.8 [facility] Comment on above: Performed By: #### C BC, LACTIC, HS TROP, BMP #### [facility] [address] [place] [address] [place] Monocytes/100 WBC (Bld) 8.4 % Normal . [facility] Comment on above: Performed By: #### C BC, LACTIC, HS TROP, BMP #### [address] Neutrophils (Bld) [#/Vol] 6.4 10*3/uL Normal 1.8-7.7 [facility] Comment on above: Performed By: #### C BC, LACTIC, HS TROP, BMP #### [address] Neutrophils/100 WBC (Bld) 79.4 % Normal . [facility] Comment on above: Performed By: #### C BC, LACTIC, HS TROP, BMP #### [address] Nucleated RBC/100 WBC (Bld) [Ratio] 0.2 % Normal 0-0.5 [facility] Comment on above: Performed By: #### C BC, LACTIC, HS TROP, BMP #### [address] Platelet mean volume (Bld) [Entitic vol] 9.4 fL Normal 6.3-10.7 [facility] Comment on above: Performed By: #### C BC, LACTIC, HS TROP, BMP #### [place] [address] [place] Platelets (Bld) [#/Vol] 138 10*3/uL Low 150-450 [facility] Comment on above: Performed By: #### C BC, LACTIC, HS TROP, BMP #### [facility] [address] RBC (Bld) [#/Vol] 4.44 10*6/uL Normal 3.60-5.00 [facility] Comment on above: Performed By: #### C BC, LACTIC, HS TROP, BMP #### [facility] [address] [place] [id number] [facility] WBC (Bld) [#/Vol] 8.0 10*3/uL Normal 4.5-11.0 [facility] Comment on above: Performed By: #### C BC, LACTIC, HS TROP, BMP #### [address] D-Dimer High Sensitivityon 0 07-09-2021 D-Dimer High Sensitivity 247 ng/mL High 0-243 [facility] Comment on above: Result Comment: The reference [...] patients due to co-morbid conditions. PERFORMED BY: [place] [address] PATHOLOGIST CUSTOMER RETENTION REPRESENTATIVE OTILIA BAIRD M.D. Performed By: #### C BC, LACTIC, HS TROP, BMP #### [address] ECG 12 lead ECGon 07-09-2021 ECG 12 lead ECG [facility] [place] [address] [place] [address] Electrocardiograph Report Signed Patient: Sis Moore MR#: [id number] : 1965 Acct:[id number] Age/Sex: 55 / F ADM Date: 07/09/21 Loc: Room: [address] [place] [address] Type: ADM IN Attending Dr: Kirk Lopez [...] ECGs available Confirmed by CAROLEE ABDALLA DO ([id number]) on 07/09/2021 1:45:33 AM Referred By: Electronically Signed By:CAROLEE ABDALLA DO Transcribed By: MUS Signed By Carolee Abdalla DO 07/09 0145 [facility] Glucose Poct Glucometerson 0 07-09-2021 Commemt1 Glu2: [facility] Comment on above: Result Comment: PERF ORMED BY: [place] [address] PATHOLOGIST CUSTOMER RETENTION REPRESENTATIVE OTILIA BAIRD M.D. Performed By: #### C BC, LACTIC, HS TROP, BMP #### [facility] [address] [place] [address] Glucose [Mass/Vol] 154 mg/dL Normal [facility] Comment on above: Result Comment: [facility] Glucose Reference Range is dependent on time and content of last meal. Glucose of more than 200 mg/dL in a nonstressed, ambulatory subject supports the diagnosis of Diabetes Mellitus. Performed By: #### C BC, LACTIC, HS TROP, BMP #### [facility] [address] [place], [place] [id number] [place] Glucose [Mass/Vol] 132 mg/dL Normal [facility] Comment on above: Result Comment: [place] Glucose Reference Range is dependent on time and content of last meal. Glucose of more than 200 mg/dL in a nonstressed, ambulatory subject supports the diagnosis of Diabetes Mellitus. PERFORMED BY: [place] [address] PATHOLOGIST CUSTOMER RETENTION REPRESENTATIVE OTILIA BAIRD M.D. Performed By: #### C BC, LACTIC, HS TROP, BMP #### [address] Glucose [Mass/Vol] 176 mg/dL Normal [facility] Comment on above: Result Comment: [place] om Glucose Reference Range is dependent on time and content of last meal. Glucose of more than 200 mg/dL in a nonstressed, ambulatory subject supports the diagnosis of Diabetes Mellitus. PERFORMED BY: [place] [address] PATHOLOGIST CUSTOMER RETENTION REPRESENTATIVE OTILIA BAIRD M.D. Performed By: #### C BC, LACTIC, HS TROP, BMP #### [address] Glucose [Mass/Vol] 173 mg/dL Normal [facility] Comment on above: Result Comment: [place] om Glucose Reference Range is dependent on time and content of last meal. Glucose of more than 200 mg/dL in a nonstressed, ambulatory subject supports the diagnosis of Diabetes Mellitus. PERFORMED BY: [place] [address] PATHOLOGIST CUSTOMER RETENTION REPRESENTATIVE OTILIA BAIRD M.D. Performed By: #### G LULS #### Point of Care testing , Lactic Acidon 07-09-2021 Lactate [Moles/Vol] 0.6 mmol/L Normal 0.5-2.2 [facility] Comment on above: Result Comment: PERF ORMED BY: [place] [address] PATHOLOGIST CUSTOMER RETENTION REPRESENTATIVE OTILIA BAIRD M.D. Performed By: #### C BC, LACTIC, HS TROP, BMP #### [address] Valdemar Ag Negativeon 07-09-20 21 Valdemar Ag Negative Negative Normal Negative [facility] Comment on above: Result Comment: This is a duplicate Valdemar SARS Antigen (ROWDY) result to be used for statistical tracking purpose only. PERFORMED BY: [place] [id number] PATHOLOGIST CUSTOMER RETENTION REPRESENTATIVE OTILIA BAIRD M.D. Performed By: #### C OVID 19 [facility], COVID-19 VALDEMAR, SOFIANEG #### [facility] [address] [place] [address] Troponin I High Sensitivityo n 07-09-2021 Troponin I High Sensitivity 14 pg/mL Normal 0-15 [facility] Comment on above: Result Comment: PERF ORMED BY: [place] [id number] PATHOLOGIST CUSTOMER RETENTION REPRESENTATIVE OTILIA BAIRD M.D. Performed By: #### C BC, LACTIC, HS TROP, BMP #### [facility] [address] [place] [address] Venous Blood Gason CO2 [Moles/Vol] 40.3 mmol/L High 24.0-29.0 [facility] Comment on above: Performed By: #### V BG #### Point of Care testing , HCO3 (Bld) [Moles/Vol] 38.2 mmol/L High 23.0-29.0 [facility] Comment on above: Performed By: #### V BG #### Point of Care testing , Respiratory Critical [facility] Comment on above: Result Comment: Crit ical Value called on: 07/08/2021 at 23:40 PERFORMED BY: [place] [address] PATHOLOGIST CUSTOMER RETENTION REPRESENTATIVE OTILIA BAIRD M.D. Performed By: #### V BG #### Point of Care testing , VBG Base Excess 9.9 mmol/L High -3.0-3.0 [facility] Comment on above: Performed By: #### V BG #### Point of Care testing , VBG Draw Site Other [facility] Comment on above: Performed By: #### V BG #### Point of Care testing , VBG Frac Inspired O2 70 % [facility] Comment on above: Performed By: #### V BG #### Point of Care testing , VBG Oxygen Saturation 94.1 % Off scale high 73.0-76.0 [facility] Comment on above: Performed By: #### V BG #### Point of Care testing , VBG PCO2 70.1 mm[Hg] High 38.0-50.0 [facility] Comment on above: Performed By: #### V BG #### Point of Care testing , VBG PH Venous PH 7.35 Normal 7.32-7.43 [facility] Comment on above: Performed By: #### V BG #### Point of Care testing , VBG PO2 72.4 mm[Hg] High 35.0-45.0 [facility] Comment on above: Performed By: #### V BG #### Point of Care testing , XR chest 1V portableon 07-09 XR chest 1V portable [facility] [place] [address] XRay Report Signed Patient: Sis Moore MR#: [id number] : 1965 Acct:[id number] Age/Sex: 55 / F ADM Date: 07/09/21 Loc: Room: [address] [place] [address] Type: ADM IN Attending Dr: Kirk Lopez [...] Sheldon Khan M.D.07/09/2021 8:33 AM Dictation Location: [place] [address] Transcribed By: [facility] 07/09/2133 Dictated By: Sheldon Khan DO 07/09/21831 Signed By: 07/09/21832 [facility] Cardiovascular Lab Reporton 06-15-2021 Cardiovascular Lab Report [facility] Patient Name: Sis Moore [facility] Connie MR #: [id number] Department of Physician: Boo Landers M.D. Division of Service Date: 06/15/2021 Cardiology Birthdate: 1965 Adult Cardiovascular Room #: [facility] [address] [facility]. [place] [address] Cardiovascular Laboratory Report IMPRESSIONS: 1. Mild disease [...] management; given mild coronary artery disease, aspirin, oinltlft-jj-piws intensity statin therapy, beta-aleks, and angiotensin-convertin g enzyme inhibitor are indicated. 4. Follow up with Toshia Sam nurse practitioner in the next 2 to 3 months. 5. Follow up with her family physician as scheduled. PROCEDURES: Ultrasound-guided access to the right common femoral vein, ultrasound-guided access to the right common femoral artery, right heart catheterization, bilateral selective coronary angiography, placement of a 6-Bhutanese MynxGrip closure device. METHODS: After risks, benefits, [...] femoral vein and artery was obtained. A 6-Bhutanese 11 cm sheath was placed in each. [...] the procedure. All catheters were removed. A 6-Bhutanese MynxGrip closure device was deployed per protocol [...] Soto M.D. Date Trans: 06/15/2021 11:37 A/sofía [id number] cc: Toshia Sam, MSN, FITNESS COACH-C Department Of Surgery [place] [address] [facility] [address] Normal [facility] Vital Signs Date Time Vital Sign Value Performing Clinician Facility 12-05-2023 08:48-0500 Body height 175.3 cm Brea Анна MANAGER PSYCHOLOGY Work Phone: [facility] 12-05-2023 08:48-0500 Body mass index (BMI) [Ratio] 37.51 kg/m2 Brea Jj MANAGER PSYCHOLOGY Work Phone: [facility] 12-05-2023 08:48-0500 Body temperature 97.11 [degF] Breaadriana Jj MANAGER PSYCHOLOGY Work Phone: [facility] 12-05-2023 08:48-0500 Body weight 115.21 kg Brea Анна MANAGER PSYCHOLOGY Work Phone: [facility] 12-05-2023 08:48-0500 Diastolic blood pressure 68 mm[Hg] Brea Jj MANAGER PSYCHOLOGY Work Phone: [facility] 12-05-2023 08:48-0500 Heart rate 103 /min Brea Анна MANAGER PSYCHOLOGY Work Phone: [facility] 12-05-2023 08:48-0500 Respiratory rate 17 /min Brea Анна MANAGER PSYCHOLOGY Work Phone: [facility] 12-05-2023 08:48-0500 SaO2% (BldA) [Mass fraction] 99 % Brea Jj MANAGER PSYCHOLOGY Work Phone: [facility] 12-05-2023 08:48-0500 Systolic blood pressure 110 mm[Hg] Brea Jj MANAGER PSYCHOLOGY Work Phone: [facility] 09-25-2023 21:50-0500 Diastolic blood pressure 73 mm[Hg] Demond Holly [facility] 09-25-2023 21:50-0500 Heart rate 95 /min Demond Holly [facility] 09-25-2023 21:50-0500 Mean blood pressure 90 mm[Hg] Demond Avni [facility] 09-25-2023 21:50-0500 Respiratory rate 22 /min Demond Avni [facility] 09-25-2023 21:50-0500 SaO2% (BldA) [Mass fraction] 97 % Demond Avni [facility] 09-25-2023 21:50-0500 Systolic blood pressure 123 mm[Hg] Demond Avni [facility] 09-25-2023 20:37-0500 Diastolic blood pressure 77 mm[Hg] Demond Avni [facility] 09-25-2023 20:37-0500 Heart rate 94 /min Demond Avni [facility] 09-25-2023 20:37-0500 Mean blood pressure 99 mm[Hg] Demond Avni [facility] 09-25-2023 20:37-0500 Respiratory rate 18 /min Demond Avni [facility] 09-25-2023 20:37-0500 SaO2% (BldA) [Mass fraction] 97 % Demond Avni [facility] 09-25-2023 20:37-0500 Systolic blood pressure 144 mm[Hg] Demond Avni [facility] 09-25-2023 19:50-0500 Diastolic blood pressure 83 mm[Hg] Demond Avni [facility] 09-25-2023 19:50-0500 Heart rate 100 /min Demond Avni [facility] 09-25-2023 19:50-0500 Mean blood pressure 104 mm[Hg] Demond Avni [facility] 09-25-2023 19:50-0500 Respiratory rate 22 /min Demond Avni [facility] 09-25-2023 19:50-0500 SaO2% (BldA) [Mass fraction] 98 % Demond Avni [facility] 09-25-2023 19:50-0500 Systolic blood pressure 147 mm[Hg] Demond Avni [facility] 09-25-2023 18:23-0500 Body temperature 98.24 [degF] Demond Avni [facility] 09-25-2023 18:23-0500 Heart rate 111 /min Demond Holly [facility] 09-25-2023 18:23-0500 Respiratory rate 24 /min Demond Holly [facility] 09-08-2023 20:26-0500 Body temperature 98.06 [degF] Ramses Reginaldo [facility] 09-08-2023 20:26-0500 Diastolic blood pressure 76 mm[Hg] Ramses Hair [facility] 09-08-2023 20:26-0500 Heart rate 81 /min Ramses Hair [facility] 09-08-2023 20:26-0500 Mean blood pressure 87 mm[Hg] Ramses Hair [facility] 09-08-2023 20:26-0500 Respiratory rate 20 /min Ramses Hair [facility] 09-08-2023 20:26-0500 SaO2% (BldA) [Mass fraction] 99 % Ramses Hair [facility] 09-08-2023 20:26-0500 Systolic blood pressure 110 mm[Hg] Ramses Hair [facility] 09-08-2023 19:28-0500 Diastolic blood pressure 61 mm[Hg] Ramses Reginaldo [facility] 09-08-2023 19:28-0500 Heart rate 86 /min Ramses Reginaldo [facility] 09-08-2023 19:28-0500 Mean blood pressure 82 mm[Hg] Ramses Reginaldo [facility] 09-08-2023 19:28-0500 Respiratory rate 18 /min Ramses Reginaldo [facility] 09-08-2023 19:28-0500 SaO2% (BldA) [Mass fraction] 99 % Ramses Reginaldo [facility] 09-08-2023 19:28-0500 Systolic blood pressure 123 mm[Hg] Ramses Reginaldo [facility] 09-08-2023 18:00-0500 Diastolic blood pressure 75 mm[Hg] Ramses Reginaldo [facility] 09-08-2023 18:00-0500 Heart rate 92 /min Ramses Reginaldo [facility] 09-08-2023 18:00-0500 SaO2% (BldA) [Mass fraction] 91 % Ramses Reginaldo [facility] 09-08-2023 18:00-0500 Systolic blood pressure 124 mm[Hg] Ramses Reginaldo [facility] 09-08-2023 16:33-0500 Body temperature 98.24 [degF] Ramses Reginaldo [facility] 09-08-2023 16:33-0500 Heart rate 104 /min Ramses Reginaldo [facility] 09-08-2023 16:33-0500 Respiratory rate 24 /min Ramses Reginaldo [facility] 07-19-2023 09:00-0400 Blood Pressure Location Mhd Al-Marrawi [facility] 07-19-2023 09:00-0400 Body temperature 98.06 [degF] d Al-Marrawi [facility] 07-19-2023 09:00-0400 Diastolic blood pressure 72 mm[Hg] Mhd Al-Marrawi [facility] 07-19-2023 09:00-0400 Heart rate 79 /min Mhd Al-Marrawi [facility] 07-19-2023 09:00-0400 Mean blood pressure 88 mm[Hg] d Al-Marrawi [facility] 07-19-2023 09:00-0400 Respiratory rate 18 /min Mhd Al-Marrawi [facility] 07-19-2023 09:00-0400 SaO2% (BldA) [Mass fraction] 93 % Mhd Al-Marrawi [facility] 07-19-2023 09:00-0400 Systolic blood pressure 120 mm[Hg] d Al-Marrawi [facility] 06-28-2023 10:00-0400 Blood Pressure Location Ezekiel Christian [facility] 06-28-2023 10:00-0400 Body temperature 98.06 [degF] Ezekiel Christian [facility] 06-28-2023 10:00-0400 Diastolic blood pressure 69 mm[Hg] Ezekiel Christian [facility] 06-28-2023 10:00-0400 Heart rate 101 /min Ezekiel Christian [facility] 06-28-2023 10:00-0400 Mean blood pressure 90 mm[Hg] Ezekiel Christian [facility] 06-28-2023 10:00-0400 Respiratory rate 16 /min Ezekiel Christian [facility] 06-28-2023 10:00-0400 SaO2% (BldA) [Mass fraction] 92 % Ezekiel Christian [facility] 06-28-2023 10:00-0400 Systolic blood pressure 133 mm[Hg] Ezekiel Christian [facility] 06-17-2023 17:06-0400 Hourly Rounding Mbanefo OJUKWU [facility] 06-17-2023 17:06-0400 Promise to Return Mbanefo OJUKWU [facility] 06-17-2023 16:00-0400 Hourly Rounding Mbanefo OJUKWU [facility] 06-17-2023 16:00-0400 Promise to Return Mbanefo OJUKWU [facility] 06-17-2023 15:42-0400 Heart rate 82 /min Mbanefo OJUKWU [facility] 06-17-2023 15:42-0400 SaO2% (BldA) [Mass fraction] 95 % Mbanefo OJUKWU [facility] 06-17-2023 15:42-0400 Diastolic blood pressure 64 mm[Hg] Mbanefo OJUKWU [facility] 06-17-2023 15:42-0400 Mean blood pressure 79 mm[Hg] Mbanefo OJUKWU [facility] 06-17-2023 15:42-0400 Systolic blood pressure 109 mm[Hg] Mbanefo OJUKWU [facility] 06-17-2023 15:41-0400 Body temperature 97.88 [degF] Mbanefo OJUKWU [facility] 06-17-2023 15:05-0400 Hourly Rounding Mbanefo OJUKWU [facility] 06-17-2023 15:05-0400 Promise to Return Mbanefo OJUKWU [facility] 06-17-2023 14:00-0400 SaO2% (BldA) [Mass fraction] 96 % Mbanefo OJUKWU [facility] 06-17-2023 12:53-0400 Heart rate 87 /min Mbanefo OJUKWU [facility] 06-17-2023 12:53-0400 Respiratory rate 18 /min Mbanefo OJUKWU [facility] 06-17-2023 12:48-0400 SaO2% (BldA) [Mass fraction] 95 % Mbanefo OJUKWU [facility] 06-17-2023 12:44-0400 Heart rate 86 /min Mbanefo OJUKWU [facility] 06-17-2023 12:44-0400 Respiratory rate 18 /min Mbanefo OJUKWU [facility] 06-17-2023 12:00-0400 Diastolic blood pressure 66 mm[Hg] Mbanefo OJUKWU [facility] 06-17-2023 12:00-0400 Mean blood pressure 86 mm[Hg] Mbanefo OJUKWU [facility] 06-17-2023 12:00-0400 Systolic blood pressure 125 mm[Hg] Mbanefo OJUKWU [facility] 06-17-2023 09:19-0400 Diastolic blood pressure 71 mm[Hg] Mbanefo OJUKWU [facility] 06-17-2023 09:19-0400 Systolic blood pressure 134 mm[Hg] Mbanefo OJUKWU [facility] 06-17-2023 09:16-0400 gluc 173 mg/dL Mbanefo OJUKWU [facility] 06-17-2023 07:33-0400 Mean blood pressure 90 mm[Hg] Mbanefo OJUKWU [facility] 06-17-2023 07:33-0400 Body temperature 97.88 [degF] Mbanefo OJUKWU [facility] 06-17-2023 04:00-0400 Blood Pressure Location Mbanefo OJUKWU [facility] 06-17-2023 04:00-0400 Body temperature 98.24 [degF] Mbanefo OJUKWU [facility] 06-17-2023 04:00-0400 Mean blood pressure 91 mm[Hg] Mbanefo OJUKWU [facility] 06-17-2023 00:00-0400 Body temperature 97.88 [degF] Mbanefo OJUKWU [facility] 06-16-2023 22:48-0400 Blood Pressure Location Mbanefo OJUKWU [facility] 06-16-2023 22:48-0400 Body temperature 98.24 [degF] Mbanefo OJUKWU [facility] 06-16-2023 22:48-0400 Heart rate 80 /min Mbanefo OJUKWU [facility] 06-16-2023 21:42-0400 Mean blood pressure 76 mm[Hg] Mbanefo OJUKWU [facility] 06-16-2023 21:42-0400 Respiratory rate 18 /min Mbanefo OJUKWU [facility] 06-16-2023 20:45-0400 Mean blood pressure 95 mm[Hg] Mbanefo OJUKWU [facility] 06-16-2023 20:45-0400 Respiratory rate 18 /min Mbanefo OJUKWU [facility] 06-16-2023 19:39-0400 Respiratory rate 18 /min Mbanefo OJUKWU [facility] 06-16-2023 15:51-0400 Heart rate 107 /min Mbanefo OJUKWU [facility] 06-16-2023 15:51-0400 Respiratory rate 22 /min Mbanefo OJUKWU [facility] Encounters Encounter Date Encounter Type Care Provider Facility Start: 12-08-2023 Refill Brea Aichholz MANAGER PSYCHOLOGY Work Phone: [facility] Comment on above: Anxiety and depressi on (CMS/[facility]) (Primary Dx); Type 2 diabetes mellitus without complication, without long-term current use of insulin ([facility]); Arthritis Start: 12-05-2023 End: 12-05-2023 ambulatory BREA AICHHOLZ Not Available Start: 12-05-2023 End: 12-05-2023 Office outpatient visit 25 minutes Brea Aichyamilaz MANAGER PSYCHOLOGY Work Phone: [facility] Comment on above: Other insomnia (Prim fay Dx); ROLANDO (obstructive sleep apnea); COPD mixed type (CMS/HCC); Tobacco dependence syndrome; BMI 37.0-37.9, adult; Anxiety and depression (CMS/HCC); Restless leg syndrome Start: 10-19-2023 End: 10-19-2023 ambulatory BREA JJ Not Available Start: 09-25-2023 End: 09-25-2023 Emergency department patient visit Moses Fischer Facility:[facility] Start: 09-25-2023 End: 09-25-2023 Emergency department patient visit Demond Holly [facility] Start: 09-08-2023 End: 09-08-2023 Emergency department patient visit Ramses Hair Facility:[facility] Start: 09-08-2023 End: 09-08-2023 Emergency department patient visit Ramses Hair [facility] Start: 07-20-2023 End: 07-20-2023 ambulatory EH[facility] Start: 07-19-2023 End: 07-20-2023 ambulatory Mhd Yaser Al-Marrawi Facility:[facility] Start: 07-19-2023 End: 07-19-2023 Patient encounter procedure Mhd Yaser Al-Marrawi [facility] Start: 06-28-2023 End: 06-29-2023 ambulatory Mhd Yaser Al-Marrawi Facility:[facility] Start: 06-28-2023 End: 06-29-2023 ambulatory Mhd Yaser Al-Marrawi Facility:[facility] Start: 06-28-2023 End: 06-28-2023 Patient encounter procedure Ezekiel Anahi [facility] Start: 06-16-2023 End: 06-17-2023 ambulatory Alex BARRIENTOS Facility:[facility] Start: 06-16-2023 End: 06-17-2023 Observation Alex HortonJUKWU [facility] Start: 02-23-2023 End: 02-23-[address] SHELDON CARVAJAL . Facility:[facility] Start: 02-01-2023 End: 02-02-2023 ambulatory CORRINA Dorman Facility:[facility] Start: 01-12-2023 End: 01-13-2023 ambulatory SHOOTING GALLERY OPERATOR BREA AICHHOLZ Facility:[facility] Start: 01-03-2023 End: 01-04-2023 ambulatory SHOOTING GALLERY OPERATOR BREA AICHHOLZ Facility:[facility] Start: 12-24-2022 End: 12-24-2022 ambulatory TOSHIA SAM [facility] Start: 11-04-2022 End: 11-05-2022 ambulatory SHOOTING GALLERY OPERATOR BREA AICHHOLZ Facility:[facility] Start: 07-28-2022 End: 07-29-2022 ambulatory SHOOTING GALLERY OPERATOR BREA AICHHOLZ Facility:[facility] Start: 04-30-2022 End: 05-01-2022 ambulatory SHOOTING GALLERY OPERATOR BREA AICHHOLZ Facility:[facility] Start: 03-26-2022 End: 03-26-2022 ambulatory SHOOTING GALLERY OPERATOR BREA AICHHOLZ Facility:[facility] Start: 06-15-2021 End: 06-16-2021 ambulatory TOSHIA MORALESS Facility:[facility] Procedures Date Procedure Procedure Detail Performing Clinician Start: 04-14-2023 Mammography Brea Aichh olz MANAGER PSYCHOLOGY Work Phone: Start: 03-31-2020 Colonoscopy Brea Aichh olz MANAGER PSYCHOLOGY Work Phone: Start: 05-05-1987 section Elijah Christian Start: 06-20-1984 section Elijah Christian Cyst (disorder) Ezekiel solorzano Comment on above: Removal of cyst of r ight foot. Knee region structur e (body structure) Ezekiel Christian Comment on above: surgery Plan of Treatment Date Care Activity Detail Author Start: 03-31-2030 Screening for malign ant neoplasm of colon [facility] Start: 06-23-2028 Screening for malign ant neoplasm of cervix [facility] Start: 04-01-2025 Glaucoma screening Diabetes: R etinopathy Screening [facility] Start: 04-29-2024 Influenza vaccination Influenza Vacc ine (#1) [facility] Comment on above: Postponed from 07/01 (Patient Refused) Start: 04-14-2024 Screening for malign ant neoplasm of breast Mammogram [facility] Start: 04-14-2024 Urine screening for protein Diabetes: Urine Protein Screening [facility] Start: 01-25-2024 Hemoglobin A1c measurement Diabetes: Hemoglobin A1C [facility] Start: 01-10-2024 End: 01-10-2024 Patient encounter procedure 01/10/2024 9:00 AM EDT Office Visit [facility] [address] [place] [phone] Brea Jj NP [address] [place] [phone] [facility] Start: 1985 Screening for malign ant neoplasm of cervix Pap Smear [facility] Start: 1964 Screening for malign ant neoplasm of colon [facility] Payers Date Payer Category Payer Medicaid [employer] [place] [id number] 2020-Present [address] [place] [address] [id number] 1964 Unknown [id number] 2.16.840.1.008595.3.579.2.647 1964 Unknown [id number] 2.16.840.1.320368.3.579.2.593 1964 Unknown [id number] 2.16.840.1.331313.3.579.2.593 1964 Unknown [id number] 2.16.840.1.283599.3.579.2.593 1964 Unknown [id number] 2.16.840.1.411479.3.579.2.593 1964 Unknown [id number] 2.16.840.1.768650.3.579.2.593 1964 Unknown [id number] 2.16.840.1.365731.3.579.2.593 1964 Unknown [id number] 2.16.840.1.041274.3.579.2.593 1964 Unknown [id number] 2.16.840.1.561170.3.579.2.593 1964 Unknown [id number] 2.16.840.1.374257.3.579.2.727 1964 Unknown [id number] 2.16.840.1.061589.3.579.2.727 1964 Unknown [id number] 2.16.840.1.694685.3.579.2.727 1964 Unknown [id number] 2.16.840.1.683334.3.579.2.727 1964 Unknown [id number] 2.16.840.1.078388.3.579.2.727 1964 Unknown [id number] 2.16.840.1.410900.3.579.2.727 1964 Unknown [id number] 2.16.840.1.817655.3.579.2.1259 1964 Unknown [id number] 2.16.840.1.814644.3.579.2.1259 1959 Unknown [id number] Social History Date Type Detail Facility Tobacco Former smoker [facility] Comment on above: 1/2 pack a day Tobacco smoking status No Smokin g Status Entered [facility] Start: 04-21-2023 End: 12-05-2023 Sex Assigned At Female [facility] Start: 06-28-2023 End: 10-19-2023 Tobacco smoking status Ex-smoker (finding) [facility] Comment on above: Quit 06/19/23 1/2 pack a day History of tobacco use [facility] smoker [facility] History of tobacco use Cigarette Smoker [facility] Start: 10-19-2023 End: 12-05-2023 Cigarettes smoked current (pack per day) - Reported 1 [facility] Start: 10-19-2023 Tobacco use and exposure Smokeless tobacco non-user [facility] Start: 12-05-2023 Alcohol intake Lifetime non-d mary (finding) [facility] How often to you hav e a drink containing alcohol? Never [facility] How many standard drinks containing alcohol do you have on a typical day? Patient does not drink [facility] Start: 10-19-2023 Tobacco Comment 11-20 cigarettes/day [facility] Start: 10-19-2023 Alcohol Comment caffeine 2-3 c ups per day [facility] Start: 1965 Sex Assigned At Female N [facility] Start: 04-20-2023 Gender identity Identifies as female gender (finding) [facility] Start: 04-20-2023 Sexual orientation Heterosexual (fin ding) [facility] Medical Equipment Procedure Code Equipment Code Equipment Origin al Text Equipment Identifier Dates USE ONCE DAILY A S DIRECTED [id number] Start: 03-17-2023 Functional Status Date Assessment Result Facility 09-25-2023 Functional Status N/A [facility] 09-08-2023 Functional Status N/A [facility] 06-16-2023 Functional Status N/A [facility] 06-16-2023 Functional Status [facility] Clinical Notes 12-24-2022 to 12-05-2023 Brea Jj NP - 12/05/2023 9:41 AM Gretchen Jj NP - 12/05/2023 9:41 AM Gretchen Jj NP - 12/05/2023 9:40 AM Gretchen Jj NP - 12/05/2023 9:40 AM EST Note Date & Type Note Facility 12-05-2023 History of Presen t illness Narrative Associated Problem(s): Anxiety and depression (CMS/HCC) Stop xanax, will trial klonopin Cont lamictal, duloxetine and buspar Associated Problem(s): ROLANDO (obstructive sleep apnea) Stressed importance of PAP Associated Problem(s): Other insomnia Wean off TCA 1/2 pill every other day for 7 days, then 1/2 pill every 3rd day for 7 days then stop Trial klonopin as well Associated Problem(s): Restless leg syndrome Will see if addition of klonopin helps with this as well Associated Problem(s): COPD mixed type (CMS/HCC) Continue with pulmonology Recommend Pneuomovax Still not sleeping, pt states not at all Sis Moore is a 58 y.o. female presents with chief complaint of No chief complaint on file. HPI: Fu on insomnia, last visit increase dose on elavil, still not effective Her had some medical complications last week, and she has had an increase in her anxiety Very frustrated with taking so many meds and feeling overwhelmed Is not wearing PAP either Insomnia This is a chronic problem. The current episode started more than 1 month ago. The problem occurs constantly. The problem has been unchanged. Associated symptoms include arthralgias and coughing. Pertinent negatives include no abdominal pain, chest pain, chills, congestion, fever, headaches, joint swelling, myalgias, nausea, rash, sore throat or vomiting. The symptoms are aggravated by stress. Treatments tried: many medications. The treatment provided no relief. SUBJECTIVE: MEDICATIONS: Current Outpatient Medications Medication Instructions ALPRAZolam (Xanax) 0.25 MG tablet TAKE ONE TABLET BY MOUTH NEEDED FOR ACUTE ANXIETY DAILY amitriptyline (ELAVIL) 50 mg, Oral, Nightly Aspirin Low Dose 81 mg, Oral, Daily atorvastatin (LIPITOR) 40 mg, Oral, Daily Bevespi Aerosphere 9-4.8 MCG/ACT aerosol 2 puffs, Inhalation, 2 times daily busPIRone (BUSPAR) 15 mg, Oral, 2 times daily Calcium Carb-Cholecalciferol 600-5 MG-MCG tablet 1 tablet, Oral, 2 times daily clonazePAM (KLONOPIN) 0.5 mg, Oral, Nightly DULoxetine (CYMBALTA) 60 mg, Oral, Daily Eliquis 5 MG tablet TAKE TWO TABLETS BY MOUTH TWICE A DAY FOR 6 DAYS, THE TAKE ONE TABLET TWICE A DAY FOR 30 DAYS Flovent HFA 110 MCG/ACT inhaler 2 puffs, Inhalation, 2 times daily fluticasone (Flonase) 50 MCG/ACT nasal spray INSTILL 2 SPRAYS IN EACH NOSTRIL ONCE DAILY furosemide (LASIX) 20 mg, Oral, Daily gabapentin (NEURONTIN) 300 mg, Oral, Daily, Take at 5pm ipratropium-albuterol (Duo-Neb) 0.5-2.5 mg/3 mL nebulizer solution INHALE 3ML FOUR TIMES A DAY lamoTRIgine (LAMICTAL) 50 mg, Oral, Nightly lisinopril-hydroCHLOROthiazide 20-25 MG tablet 1 tablet, Oral, Daily OneTouch Ultra test strip USE ONCE DAILY DIRECTED pioglitazone (ACTOS) 15 mg, Oral, Daily potassium chloride CR (Klor-Con) 10 MEQ ER tablet 10 mEq, Oral, Daily pramipexole (MIRAPEX) 0.5 mg, Oral, Nightly theophylline ER (Franki-Dur) 300 MG 12 hr tablet TAKE 1 12 TABLETS BY MOUTH EVERY 12 HOURS Ventolin HFA 108 (90 Base) MCG/ACT inhaler INHALE 2 PUFFS BY MOUTH FOR SHOTNESS OF BREATH EVERY 4 HOURS NEEDED ALLERGIES: No Known Allergies REVIEW OF SYMPTOMS: Review of Systems Constitutional: Negative for appetite change, chills and fever. HENT: Negative for congestion, ear pain and sore throat. Eyes: Negative for pain, discharge, redness and visual disturbance. Respiratory: Positive for cough and shortness of breath. Negative for wheezing. Cardiovascular: Negative for chest pain, palpitations and leg swelling. Gastrointestinal: Negative for abdominal pain, blood in stool, constipation, diarrhea, nausea and vomiting. Genitourinary: Negative for difficulty urinating, dysuria and frequency. Musculoskeletal: Positive for arthralgias. Negative for back pain, joint swelling and myalgias. Skin: Negative for rash and wound. Neurological: Negative for dizziness, tremors, seizures, syncope and headaches. Psychiatric/Behavioral: Positive for sleep disturbance. Negative for behavioral problems, self-injury and suicidal ideas. The patient is nervous/anxious and has insomnia. Hematological: Does not bruise/bleed easily. Endocrine: Negative for polydipsia, polyphagia and polyuria. Allergic/Immunologic: Negative for environmental allergies and food allergies. PAST MEDICAL HISTORY Past Medical History: Diagnosis Date Anxiety and depression ([facility]) 10/12/2023 Arthritis Class 2 severe obesity due to excess calories with serious comorbidity in adult ([facility]) 10/19/2023 COPD (chronic obstructive pulmonary disease) ([facility]) Fibrocystic breast disease Mixed hyperlipidemia ([facility]) 10/12/2023 ROLANDO (obstructive sleep apnea) Other insomnia 10/19/2023 Primary hypertension ([facility]) 10/12/2023 Restless leg syndrome 10/12/2023 Type 2 diabetes mellitus without complication, without long-term current use of insulin ([facility]) 10/19/2023 Past Surgical History: Procedure Laterality Date SECTION, LOW TRANSVERSE x2 COLONOSCOPY FOOT SURGERY 01/08/2020 e/o RT foot ganglion cyst, repair tendon HEART CATH 2015 WNL KNEE SURGERY Left arthroscopy TUBAL LIGATION Bilateral BTL family history includes COPD in her mother; Heart disease in her father. OBJECTIVE: Visit Vitals BP 110/68 (BP Location: Left arm, Patient Position: Sitting, BP Cuff Size: Large adult) Pulse 103 Temp 97.1 F (Temporal) Resp 17 Ht 5' 9 Wt 254 lb SpO2 99% BMI 37.51 kg/m OB Status Postmenopausal Smoking Status Former BSA 2.37 m Physical Exam Constitutional: General: She is not in acute distress. Appearance: Normal appearance. HENT: Head: Normocephalic and atraumatic. Right Ear: External ear normal. Left Ear: External ear normal. Nose: Nose normal. Mouth/Throat: Mouth: Mucous membranes are moist. Eyes: Extraocular Movements: Extraocular movements intact. Conjunctiva/sclera: Conjunctivae normal. Cardiovascular: Rate and Rhythm: Normal rate and regular rhythm. Pulses: Normal pulses. Heart sounds: Normal heart sounds. Pulmonary: Effort: Pulmonary effort is normal. Breath sounds: Normal breath sounds. Abdominal: General: Bowel sounds are normal. There is no distension. Palpations: Abdomen is soft. There is no mass. Tenderness: There is no abdominal tenderness. Musculoskeletal: General: Normal range of motion. Cervical back: Normal range of motion and neck supple. Skin: General: Skin is warm and dry. Capillary Refill: Capillary refill takes 2 to 3 seconds. Findings: No rash. Neurological: General: No focal deficit present. Mental Status: She is alert and oriented to person, place, and time. Psychiatric: Behavior: Behavior normal. Thought Content: Thought content normal. Judgment: Judgment normal. Comments: tearful ASSESSMENT AND PLAN: No follow-ups on file. Problem List Items Addressed This Visit Restless leg syndrome Will see if addition of klonopin helps with this as well Relevant Medications clonazePAM (KlonoPIN) 0.5 MG tablet Anxiety and depression (CMS/HCC) Stop xanax, will trial klonopin Cont lamictal, duloxetine and buspar Relevant Medications clonazePAM (KlonoPIN) 0.5 MG tablet Other insomnia - Primary Wean off TCA 1/2 pill every other day for 7 days, then 1/2 pill every 3rd day for 7 days then stop Trial klonopin as well Relevant Medications clonazePAM (KlonoPIN) 0.5 MG tablet ROLANDO (obstructive sleep apnea) Stressed importance of PAP Tobacco dependence syndrome COPD mixed type (CMS/HCC) Continue with pulmonology Recommend Pneuomovax BMI 37.0-37.9, adult documented in this encounter [facility] 09-25-2023 Hospital Discharg e instructions Patient Education [...] Follow these instructions at home: Medicines Take tsbv-gvf-kmbmacf and prescription medicines only as told by [...] important. Where to find more information [employer] [place] of Diabetes and [employer]estive and Kidney Diseases: [...] provider. Document Revised: 09/08/2020 Document Reviewed: 09/08/2020 [employer] Patient Education 2022 [employer]. Follow Up Care 09/25/2023 18:11:16 With:[facility] Address: [address] [place] [address] 3, [address] Floor, [address] [place] [address] [phone] Business (1) When:09/28/2023 21:47:26 With:BREA JJ Address: [address] [place] [phone] Business (1) When:Within 3 Day(s) [facility] 09-25-2023 Evaluation + Plan note Extrac aura [...] Comprehensive Metabolic Panel 12/27/23 * D-Dimer 12/27/23 [facility]11-09-2023 Hospital Discharge instructions Patient Education 09/08/2023 20:29:12 [...] Follow these instructions at home: Medicines Take fwwk-lox-eqiirfj and prescription medicines only as told by [...] provider. Document Revised: 12/31/2021 Document Reviewed: 12/31/2021 [employer] Patient Education 2022 [employer]. Follow Up Care 09/08/2023 16:32:40 With:BREA JJ Address: [address] [place] [address] [phone] Business (1) When:Within 3 Day(s) [facility]11-09-2023 Evaluation + Plan noteExtracted from: Title:ED Note Author:Ramses Hair DO Date:1 1/9/23 Acute chest pain (R07.9: Concha st pain, unspecified) Orders: Automated Diff B-Type Natriuretic Peptide Basic Metabolic Panel CBC w/ Auto Diff CTA Chest ED Cardiac Monitoring eGFR Hepatic Function Panel Oxygen Saturation Oxygen Therapy PT & PTT Saline Lock Insert Troponin 0 Hr. Troponin 3 Hr. Troponin 6 Hr. Troponin 9 Hr. Future Appointments Appointment Date:01/16/2024 09:00:00 AM Scheduled Provider: Location:.ONCOLOGY Appointment Type:ONC Office Visit 30 (FT) Future Scheduled Tests Laboratory* CBC w/ Auto Diff 12/27/23 * Comprehensive Metabolic Panel 12/27/23 * D-Dimer 12/27/23 [facility] Chief Complaint: Patient here for 6 mo follow up hypertension and coronary-myocardial bridge. Says she was admitted to [facility] in [place] for chest pain. Says she was diagnosed with PE. Following with twenty one dealer now and was started on Eliquis. She [...] history of COPD (chronic obstructive pulmonary disease) ([facility]), Diabetes mellitus ([facility]), Hyperlipidemia, Hypertension, and Sleep apnea. Surgical History [...] edema History of pu (more content not included)...[facility] 06-28-2023 Hospital Discharge instructions Follow Up Care 06/28/2023 11:35:56 With:Roby Bob Address: [facility] [address] [place] [phone] Business (1) When: Unknown Comments:Continue ELiquis for 6 months total.D dimer, CBCD and CMP end of December 2023.RTC end of December,sooner if new SOB or CP or Leg pain or swelling or bleeding. [facility]08-18-2023 NoteEchocardiology Procedure Exam Date/Time Accession # Ordering Dr. Crouch Transthoracic 06/17/2023 15:26 EDT [id number] JANETTE BOOTHE, Mbarronfo Complete CPT code 89561 [id number] Reason for Exam (Echo Transthoracic Complete) Acute pulmonary embolism;Other (please specify) Report [facility] [address] [place] [address] Adult Echocardiogram Report Name: SIS MOORE Study Date: 06/17/2023 02:55 PM BP: 132/70 mmHg Patient Location: 2N N213 01 [facility] HR: 85 : 1965 Gender: Female Age: 57 yrs Ethnicity: [facility] Weight: 251 lb Reason For Study: Other (please specify) History: Diabetes,Smoker-Yes,COPD,Obesity Ordering Physician: JANETTE^Kerrianefo Performed By: Parul Ochoa, DAYNE Interpretation Summary No comparison study is available. [...] Satinder RODNEY MD Transcribed by: SENTHIL Technologist: [facility]08-18-2023 Note Admission and Discharge Information Admitting Physician - JANETTE BOOTHE, Mbanefo Admitting Diagnoses: Discharge Order Date Discharge Patient [...] female cigarette smoker with history of hypertension, xsi-tkqjwnw-zvrsdbrwr diabetes mellitus type 2, obesity, chronic hypoxic respiratory failure on 3 L home oxygen, depressionpresented with complaints of right-sided chest pain. She was subsequently admitted to [facility] with chest pain secondary to acute right-sided [...] primary care physician as well as the twenty one dealer. Significant Findings (06/16/2023 19:59 EDT US LE [...] 75.7 % Lymph Auto - 14.3 % Bourbon Auto - 8.8 % Eos Auto - 0.9 % Basophil Auto - 0.3 % Neutro Absolute - 6.4 E9/L Lymph Absolute - 1.2 E9/L [place] Absolute - 0.7 E9/L Eos Absolute - [...] - 133 mg/dL POC Device SN - [id number] POC User ID - [id number] POC Username - WYATT MUROAdriana CBC w/ Auto Diff (06/16/2023) WBC - [...] Discharge Plan Discharge D (more content not included)...[facility]Result Comment: Electronically Signed By: JANETTE BOOTHE, Alex\.br\Date and Time Signed: 06/17/23 14:21 [id number] Hospital Discharge instructions Patient Education 06/17/2023 14:17:33 [...] Follow these instructions at home: Medicines Take ahms-rfj-ekwpogo and prescription medicines only as told by [...] is important. Where to find more information [place] [employer]: www.lung.org Centers for Disease Control [...] or DVT, call your local emergency services (911 in the [place] This information is not intended to replace advice given to you by your health care provider. Make sure you discuss any questions you have with your health care provider. Document Revised: 09/18/2021 Document Reviewed: 09/18/2021 [employer] Patient Education 2022 [employer]. Follow Up Care 06/16/2023 15:48:06 With:BREA JJ Address: [address] [place] [phone] [facility] (1) When:1 week Comments:A voice message is left with this office with your information so they can call you for a follow upappiontment. Please call them if you do not hear from them in a few days. Thank you. With:Ezekiel Christian Address: [facility] [address] [place] [address]- When:06/28/2023 11:00:00 [facility]08-18-2023 Evaluation + Plan noteExtracted from: Title:Discharge Note Author:JANETTE BOOTHE, Alex Mccann ate:06/17/23 Discharge To, Anticipated II - Home [...] puff(s), Inhalation, BID fluticasone Nasal 0.05 mg/inh [place], 2 spray(s), Nasal, Daily furosemide 20 mg Tab, 20 mg= 1 tab(s), Oral, Daily gabapentin 300 mg Cap, 300 mg= 1 cap(s), Oral, BID hydrochlorothiazide-lisinopril 25 mg-20 mg Tab, 1 tab(s), Oral, Daily lamotrigine 25 mg Tab, 25 mg= 1 tab(s), Oral, BID pioglitazone 15 mg Tab, 15 mg= 1 tab(s), Oral, Daily Potassium Chloride (Wyg-Wnqb-Xfc 10) 10 mEq oral tablet, extended release pramipexole 0.5 mg oral tablet, 0.5 mg= 1 tab(s), Oral, TID theophylline 300 mg ER Tab, 300 mg= 1 tab(s), Oral, q12hr traZODONE 50 mg Tab, 50 mg= 1 tab(s), Oral, Once a day (at bedtime) Ventolin HFA 90 mcg/inh Aerosol-Adpt, 1 puff(s), Inhalation, QID, PRN With When Contact Information Ezekiel Christian 06/28/2023 11:00 AM EDT [facility] [address] [place] [address]. [place] [address]- Additional Instructions: BREA JJ Within 1 week [facility] [place] [address] [phone] Business (1) Additional Instructions: A voice message is left with this office with your information so they can call you for a follow up appiontment. Please call them if you do not hear from them in a few days. Thank you. Pulmonary Embolism Extracted from: Title:Admission H & P Author:JANETTE BOOTHE, Nimcofo Date:06/16/23 57-year-old female cigarette smoker with history of hypertension, bgt-hapzcfl-okecspiey diabetes mellitus, obesity, chronic hypoxic respiratory failure [...] Ordered: Initial Hospital Care/Day High 75 Minutes 15600 2. Acute pulmonary embolism (I26.99: Other pulmonary [...] Ordered: Initial Hospital Care/Day High 75 Minutes 02061 3. Sinus tachycardia (R00.0: Tachycardia, unspecified) Secondary to above acute pulmonary embolism. Monitor on telemetry. Ordered: Initial Hospital Care/Day High 75 Minutes 97934 4. COPD without exacerbation (J44.9: Chronic obstructive pulmonary disease, unspecified) Supportive care. Continue on nebulizer treatments. Ordered: Initial Hospital Care/Day High 75 Minutes 78786 5. Hypertension (I10: Essential (primary) hypertension) We will verify home medications and resume accordingly. Ordered: Initial Hospital Care/Day High 75 Minutes 17300 6. Diabetes mellitus (E11.9: Type 2 diabetes [...] deep vein thrombosis (DVT) prophylaxis (Z79.899: Other intermediate (current) drug therapy) Eliquis. The patient will [...] made to ensure accuracy. However inadvertent computerized whistle punk errors may be present. Alex Barrientos. Hospitalist. [...] Vital Signs Weight Extracted from: Title:ED Note Author:Sandro HAYNES, Leandro Neal Reza e:06/16/23 1. Chest pain (R07.9: Chest pain, unspecified) 2. Acute pulmonary embolism, (I26.99: Other pulmonary embolism without acute cor pulmonale)Pulmonary emboli 3. On deep vein thrombosis (DVT) prophylaxis (Z79.899: Other terminal make up operator (current) drug therapy) 4. COPD without exacerbation [...] Scheduled Provider: Location:.ONCOLOGY Appointment Type:ONC Office Visit [facility] (FT) [facility]08-18-2023 Hospital Discharge instructions Follow Up Care 06/17/2023 09:42:41 With:Roby Bob Address: [facility] [address] [place] [phone] Business (1) When: Unknown Comments:THrombophilia labs now with D dimer.D dimer in 3 weeks if D dimer from now is still high.Continue Eliquis 5 mg twice daily for minimum of 6 months.RTC in 3 weeks for results. [facility]08-17-2023 NoteChief Complaint CP started this afternoon while sitting down. states mid sternal CP 10/10. wears 3L O2 all the time. History of Present Illness 57-year-old female cigarette smoker with history of hypertension, blw-vktmvit-xgmnpcocc diabetes mellitus, obesity, chronic hypoxic respiratory failure [...] 16:00:00) Lymph Auto: 14.3 % (06/16/23 16:00:00) Bourbon Auto: 8.8 % (06/16/23 16:00:00) Eos Auto: 0.9 % (06/16/23 16:00:00) Basophil Auto: 0.3 % (06/16/23 16:00:00) Neutro Absolute: 6.4 E9/L (06/16/23 16:00:00) Lymph Absolute: 1.2 E9/L (06/16/23 16:00:00) [place]bon Absolute: 0.7 E9/L (06/16/23 16:00:00) Eos Absolute: [...] RIGHT LOWER LOBE. E (more content not included)...[facility] Result Comment: Electronically Signed By: JANETTE BOOTHE, Alex\.br\Date and Time Signed: 06/16/23 19:05 [id number] NoteStable, f/[facility]Un[facility]23 NoteCurrently well controlled with lasix [facility]02-24-2023 NoteNo concerning symptoms, overall she is doing well.[facility]02-24-2023 Note Hypertension is well controlled 102/62 Continue lisinopril/HCTZ, lasix Renal function normalUnMercer [facility] Hospital02-24-2023 NotePatient here for 6 mo follow up hypertension and myocardial bridge of coronary artery. Had labs in Jul 2022. Denies chest pain and lightheadedness. Review of Systems Cardiovascular: Positive for dyspnea on exertion. Respiratory: Positive for cough and shortness of breath. Musculoskeletal: Positive for arthritis, back pain and joint pain. Neurological: Positive for headaches. All other systems reviewed and are negative.[facility] 12-24-2022 NoteUTP CARDIOLOGY PROGRESS NOTE HPI: Sis Moore is a 57 y.o. female here for Hypertension and Shortness of Breath Patient here for 6 mo follow up hypertension and myocardial bridge of coronary artery. Had labs in Jul 2022. Denies chest pain and lightheadedness. Reports typical shortness of breath with exertion and is currently on oxygen 3 L/NC. F/U with Dr Russo for pulmonary. Review of Systems Cardiovascular: Positive [...] most likely r/t pulmo (more content not included)...[facility] 12-24-2022 NoteProvider had extended 10 min discussion again with patient about smoking cessation, at this time she doesn't want to take any further medication or that she is ready to quit smoking at this time.[facility] Evaluation + Plan note Future Appointments Appointment Date:07/19/2023 10:00:00 AM Scheduled Provider: Location:.ONCOLOGY Appointment Type:ONC Office Visit 30 (FT) [facility] Future Appointments Appointment Date:01/16/2024 09:00:00 AM Scheduled Provider: Location:.ONCOLOGY Appointment Type:ONC Office Visit 30 (FT) Future Scheduled Tests Laboratory* CBC w/ Auto Diff 12/27/23 * Comprehensive Metabolic Panel 12/27/23 * D-Dimer 12/27/23 [facility] Diagnosis Other insomnia- Primary ROLANDO (obstructive sleep apnea) Obstructive sleep apnea (adult) (pediatric) COPD mixed type ([facility]/HCC) Tobacco dependence syndrome Tobacco use disorder BMI 37.0-37.9, adult Anxiety and depression ([facility]/HCC) Restless leg syndrome Restless legs syndrome (RLS) documented in this encounter [facility] HealthcareEvaluation note* Diagnosis Anxiety and depression ([facility]/HCC)- Primary Type 2 diabetes mellitus without complication, without long-term current use of insulin ([facility]) Arthritis Unspecified arthropathy, site unspecified documented in this encounter [facility] HealthcareHospital course Narrative No data available for this section [facility] No data available for this section [facility] Summary Purpose Family History No Family History Records FoundNo Family History Records FoundNo Family History Records Found No data available for this section No Family History Records Found No data available for this section No Family History Records FoundNo Family History Records Found Advance Directives No Advanced Directives Records FoundNo Advanced Directives Records FoundNo Advanced Directives Records FoundNo Advanced Directives Records FoundNo Advanced Directives Records FoundNo Advanced Directives Records Found Additional Source Comments INFORMATION SOURCE (unrecogn ized section and content) DATE CREATED AUTHOR 06/22/2021 [facility] DATE CREATED AUTHOR AUTHOR'S ORGANIZ ATION 12/15/2021 [facility] DATE CREATED AUTHOR AUTHOR'S ORGANIZ ATION 02/26/2023 [facility] DATE CREATED AUTHOR AUTHOR'S ORGANIZ ATION 09/10/2023 [facility] DATE CREATED AUTHOR AUTHOR'S ORGANIZ ATION 10/15/2023 [facility] DATE CREATED AUTHOR AUTHOR'S ORGANIZ ATION 12/05/2023 [facility] EPIC Patient Care team informatio n (unrecognized section and content) Floor Technician Relationship Specialty Start Date End Date Jose M Light MD [address] [place] [id number] PCP - General Family Medicine 10/18/23 Brea Jj NP [address] [place] [id number] Nurse Practitioner Family Medicine 10/18/23 Floor Technician Relationship Specialty Start Date End Date Jose M Light MD [address] [place] [id number] PCP - General Family Medicine 10/18/23 Brea Jj NP [address] [place] [id number] Nurse Practitioner Family Medicine 10/18/23 Reason for Visit (unrecogniz ed section and content) Reason Comments Med Refill FOR RECORDS PERTAINING TO PATIENTS WHO ARE [...] BE BASED ON THE PRIMARY CLINICAL RECORDS. [facility] provides no warranty or guarantee of the accuracy or completeness of information in this document.
[2023-12-20 19:06] VITALS: BP 150/82; PULSE 118; RESP 18; TEMP 37.2; O2SAT 94; BMI 36.9
--- NOTE | 2023-12-20 19:11 | CT_ITS ---
The [address] [address] Patient Name: ALIYA CONDON MRN: [id number] date: 1965 Sex: F Assigned Patient Location: ER Current Patient Location: ER Accession/Order Number: [id number] Exam Date: 12/20/2023 19:32 Report Date: 12/20/2023 20:18 At the request of: BRAD VASQUEZ Procedure: CT abdomen pelvis wo con Indication: Epigastric pain. Vomiting. Comparison: None Procedure: Axial images were made from the diaphragms through the symphysis pubis. No oral contrast or intravenous contrast was given. Dose reduction techniques were achieved by using automated exposure control and/or adjustment of mA and/or kV according to patient size and/or use of iterative reconstruction technique. Findings: Liver/Biliary System: No liver masses are seen. No intra or extrahepatic biliary dilatation. Gallstones. No evidence of acute cholecystitis. Pancreas/Spleen: No evidence of acute pancreatitis. Pancreatic duct is not dilated. No splenomegaly. Kidneys/Adrenals: A 3.7 cm right renal hypodensity, probably cyst, however evaluation is limited due to lack of IV contrast. No renal or ureteral stones are seen. No hydronephrosis or hydroureter bilaterally. Bilateral adrenal lipid rich adenomas, 1.2 cm each. Aorta/Vessels: No evidence of aortic aneurysm. Evaluation of vessels is limited due to lack of IV contrast. Bowel/Fluid/Nodes: The stomach is distended with undigested heterogeneous contents which may represent undigested food, however bezoar in stomach may show same picture, please correlate clinically. No small bowel dilatation or small bowel wall thickening. No evidence of bowel obstruction. Colonic diverticulosis with no evidence of diverticulitis. Normal appendix. No ascites or fluid collections. No adenopathy. Lung bases: Clear. Other findings: No aggressive osseous lesions are seen. Pelvis: No pelvic masses or adenopathy. No free fluid seen in the pelvis. Bladder, uterus and adnexa grossly unremarkable. Other Findings: No aggressive osseous lesions are seen. CT/CT abdomen pelvis wo con Impression: 1. No evidence of acute abdominal or pelvic process. 2. The stomach is distended with undigested heterogeneous contents which may represent undigested food, however bezoar in stomach may show same picture, please correlate clinically. 3. Gallstones with no evidence of cholecystitis. 4. Colonic diverticulosis with no evidence of diverticulitis. 5. A 3.7 cm right renal hypodensity, probably cyst, however evaluation is limited due to lack of IV contrast. Ultrasound may be recommended on a nonemergent basis to confirm cyst. 6. Bilateral adrenal lipid rich adenomas, 1.2 cm each. Electronically authenticated by: FABI WILLSON Date: 12/20/2023 20:18
--- NOTE | 2023-12-20 19:11 | ED_ITS ---
HPI - Abdominal Pain General Chief Complaint: Abdominal Pain Stated Complaint: Abdominal Pain Time Seen by Provider: 12/20/23 19:01 Source: patient Mode of arrival: walk-in Limitations: no limitations History of Present Illness HPI narrative: Sudden right sided abdominal pain about 30 minutes [employer] that began shortly after eating. She has associated nausea. Prior history of gallbladder disease/gallstones but no cholecystectomy. She denied any fever or chills. No chest pain or shortness of breath. No urinary symptoms. No recent injury to the torso or abdomen, specifically. Related Data Previous Rx's Medication Instructions Recorded tramadol 50 mg tablet 50 mg PO TID PRN pain #14 tabs 08/24/23 hyoscyamine sulfate 0.125 mg 0.125 mg PO Q6H PRN abdominal pain 12/20/23 sublingual tablet (Levsin/SL) #20 tabs ondansetron 4 mg disintegrating 4 mg PO Q6H PRN nausea and 12/20/23 tablet vomiting #14 tabs Allergies Allergy/AdvReac Type Severity Reaction Status Date / Time No Known Drug Allergies Allergy Verified 12/20/23 19:06 PFSH PFSH Social History Smoking status: Former smoker Exam Narrative Exam Narrative: Nurses notes and vital signs reviewed and patient is not hypoxic. afebrile General: uncomfortable. Skin: Warm, dry, no pallor noted. No rash. Eye: Pupils are equal, round and EOMI. No scleral icterus. Cardiovascular: Tachycardia Respiratory: No accessory muscle use or respiratory distress. Lungs are clear to auscultation, no wheezing, rales or rhonchi Back: No CVA tenderness Musculoskeletal: normal ROM, no calf or popliteal tenderness, no lower extremity edema/swelling GI: Abdomen is soft, non-distended. Normal bowel sounds. No masses appreciated. Right upper quadrant and right-sided tenderness to palpation. No rebound, guarding, or rigidity noted. Neurological: A&O x4. No cranial nerve dysfunction observed. No truncal ataxia. Moves all extremities. Sensation intact. Psychiatric: Cooperative and interactive. Normal mood and affect. Constitutional Vital Signs, click to edit/add: Last Vital Signs Temp 99 F 12/20/23 19:06 Pulse 118 H 12/20/23 19:06 Resp 18 12/20/23 19:06 BP 150/82 H 12/20/23 19:06 Pulse Ox 94 L 12/20/23 19:06 O2 Del Method Room Air 12/20/23 19:06 Course Vital Signs Vital signs: Vital Signs Temperature 99 F 12/20/23 19:06 Pulse Rate 118 H 12/20/23 19:06 Respiratory Rate 18 12/20/23 19:06 Blood Pressure 150/82 H 12/20/23 19:06 Pulse Oximetry 94 L 12/20/23 19:06 Oxygen Delivery Method Room Air 12/20/23 19:06 Temperature 99 F 12/20/23 19:06 Pulse Rate 118 H 12/20/23 19:06 Respiratory Rate 18 12/20/23 19:06 Blood Pressure 150/82 H 12/20/23 19:06 Pulse Oximetry 94 L 12/20/23 19:06 Oxygen Delivery Method Room Air 12/20/23 19:06 MDM - Abdominal Pain MDM Narrative Medical decision making narrative: Patient was placed on air sampling and monitoring and EKG obtained. Blood drawn and sent for evaluation, including blood cultures, lactate and procalcitonin per sepsis protocol. She was ordered to receive normal saline IV fluid bolus, IV Zofran and IV Toradol. She was ordered to undergo CT scanning of the abdomen and pel vis without contrast. Normal white blood cell count and unremarkable CBC. CMP notable only for slightly elevated carbon dioxide at 32.9, minimally elevated creatinine at 1.04 with a normal BUN, glucose at 129, normal LFTs, normal bilirubin, Lipase negative. According to the radiologist, CT reveals gallstones with no evidence of cholecystitis, diverticulosis with no evidence of diverticulitis, 3.7 cm right renal hypodensity, likely cyst as well as bilateral adrenal lipid rich adenomas, 1.2 cm each. Stomach is distended with undigested heterogenous contents likely associated with recent meal. Patient informed of results. She felt better after emergency department treatment. She was discharged home with recommendation to avoid fried, fatty or processed foods, maintain clear liquid diet and soft bland diet until her symptoms resolve. She was also given her referral information for Dr. BARBOZA, general surgeon, for follow-up Lab Data Attestation: I reviewed the patient's lab results. Labs: Lab Results 12/20/23 Range/Units 19:20 WBC 8.3 (4.0-11.0) 10^3/uL RBC 4.31 (4.20-5.40) 10^6/uL Hgb 12.7 (12.0-16.0) g/dL Hct 38.8 (36.0-48.0) % MCV 90.0 (81.0-99.0) fL MCH 29.5 (26.7-34.0) pg MCHC 32.7 (29.9-35.2) g/dL RDW 14.9 (11.0-15.0) % Plt Count 204 (150-450) 10^3/uL MPV 12.4 (9.5-13.5) fL Neut % (Auto) 70.3 (43.0-75.0) % Lymph % (Auto) 18.0 L (20.5-60.0) % [place] % (Auto) 8.8 (1.7-12.0) % Eos % (Auto) 2.4 (0.9-7.0) % Baso % (Auto) 0.4 (0.2-2.0) % Neut # (Auto) 5.9 (1.4-6.5) 10^3/uL Lymph # (Auto) 1.5 (1.2-3.8) 10^3/uL [place] # (Auto) 0.7 (0.3-0.8) 10^3/uL Eos # (Auto) 0.2 (0.0-0.7) 10^3/uL Baso # (Auto) 0.0 (0.0-0.1) 10^3/uL Abs Immat Gran (auto) 0.01 (0.00-0.03) 10^3/uL Imm/Tot Granulo (auto) 0.1 (0.0-0.5) % Sodium 140 (136-145) mmol/L Potassium 3.9 (3.5-5.1) mmol/L Chloride 100 (98-107) mmol/L Carbon Dioxide 32.9 H (21.0-32.0) mmol/L Anion Gap 11.0 BUN 16.0 (7.0-18.0) mg/dL Creatinine 1.04 H (0.55-1.02) mg/dL Est GFR ( Amer) >60 (>=60) Est GFR (Non-Af Amer) 54 L (>=60) BUN/Creatinine Ratio 15.4 Glucose 129 H (74-106) mg/dL Lactate 1.6 (0.4-2.0) mmol/L Calcium 10.3 H (8.5-10.1) mg/dL Total Bilirubin 0.3 (0.2-1.0) mg/dL AST 15 (15-37) U/L ALT 20 (14-59) U/L Alkaline Phosphatase 83 (46-116) U/L Total Protein 8.5 H (6.4-8.2) g/dL Albumin 3.5 (3.4-5.0) g/dL Globulin 5.0 g/dL Albumin/Globulin Ratio 0.7 Lipase 38.0 (16.0-77.0) U/L Procalcitonin <0.05 (0.00-0.50) ng/mL Imaging Data CT scan - abdomen: Radiologist's impression: ITS Impressions Abdomen/Pelvis CT 12/20/23 19:11 Impression: 1. No evidence of acute abdominal or pelvic process. 2. The stomach is distended with undigested heterogeneous contents which may represent undigested food, however bezoar in stomach may show same picture, please correlate clinically. 3. Gallstones with no evidence of cholecystitis. 4. Colonic diverticulosis with no evidence of diverticulitis. 5. A 3.7 cm right renal hypodensity, probably cyst, however evaluation is limited due to lack of IV contrast. Ultrasound may be recommended on a nonemergent basis to confirm cyst. 6. Bilateral adrenal lipid rich adenomas, 1.2 cm each. Electronically authenticated by: FABI WILLSON Date: 12/20/2023 20:18 ECG Data Attestation: I personally reviewed and interpreted this ECG as follows: Interpretation: EKG interpretation: Emergency Department physician interpretation. Sinus tachycardia at 110bpm. Normal axis, normal intervals and no ST segment elevation or depression. Discharge Plan Discharge Chief Complaint: Abdominal Pain Clinical Impression: Gallstones, Abdominal pain Patient Disposition: Home, Self-Care Time of Disposition Decision: 20:32 Prescriptions / Home Meds: New hyoscyamine sulfate [Levsin/SL] 0.125 mg tablet, sublingual 0.125 mg PO Q6H PRN (Reason: abdominal pain) Qty: 20 0RF ondansetron 4 mg tablet,disintegrating 4 mg PO Q6H PRN (Reason: nausea and vomiting) Qty: 14 0RF No Action tramadol 50 mg tablet 50 mg PO TID PRN (Reason: pain) Qty: 14 0RF Instructions: Gallstones (ED), Clear Liquid Diet (ED), Abdominal Pain (ED) Stand Alone Forms: Portal Instructions Referrals: Brea Jj NP [Primary Care Provider] - 1 week Misha Barboza MD [Physician] - As soon as possible
--- NOTE | 2023-12-20 19:15 | ECG_ITS ---
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
[2023-12-20] MEDS: KETOROLAC TROMETHAMINE 30 MG/ML VIAL IVP (19:22)
[2023-12-20] MEDS: 0.9 % SODIUM CHLORIDE 1,000 ML 999 ML IV (19:22)
[2023-12-20] MEDS: ONDANSETRON PF 4 MG/2 ML VIAL IV (19:22)
--- NOTE | 2023-12-20 19:30 | PC.NURSE ---
Patient reports severe, 10/10 upper abdominal pain starting 30 minutes after eating spaghetti with meat sauce. She has had pain like this in the past and thought it was her gall bladder, but had testing done and it was proven to not be her gall bladder. also c/o nausea.
[2023-12-20 19:40] LABS: Basophils Percent Auto 0.4 % (0.2-2.0); Eosinophils Absolute Auto 0.2 10^3/uL (0.0-0.7); Eosinophils Percent Auto 2.4 % (0.9-7.0); Hematocrit 38.8 % (36.0-48.0); Hemoglobin 12.7 g/dL (12.0-16.0); Immature Granulocytes Abs Auto 0.01 10^3/uL (0.00-0.03); Immature Granulocytes Pct Auto 0.1 % (0.0-0.5); Lymphocytes Absolute Auto 1.5 10^3/uL (1.2-3.8); Mean Corpuscular HGB Conc 32.7 g/dL (29.9-35.2); Mean Corpuscular Hemoglobin 29.5 pg (26.7-34.0); Mean Platelet Volume 12.4 fL (9.5-13.5); Monocytes Absolute Auto 0.7 10^3/uL (0.3-0.8); Monocytes Percent Auto 8.8 % (1.7-12.0); Neutrophils Absolute Auto 5.9 10^3/uL (1.4-6.5); Neutrophils Percent Auto 70.3 % (43.0-75.0); Platelet Count 204 10^3/uL (150-450); Red Blood Count 4.31 10^6/uL (4.20-5.40); Red Cell Distribution Width 14.9 % (11.0-15.0); White Blood Count 8.3 10^3/uL (4.0-11.0)
[2023-12-20 19:53] LABS: Alanine Aminotransferase 20 U/L (14-59); Albumin Globulin Ratio 0.7; Albumin Level 3.5 g/dL (3.4-5.0); Alkaline Phosphatase 83 U/L (46-116); Aspartate Amino Transferase 15 U/L (15-37); BUN Creatinine Ratio 15.4; Bilirubin Total 0.3 mg/dL (0.2-1.0); Calcium 10.3 mg/dL (8.5-10.1); Carbon Dioxide 32.9 mmol/L (21.0-32.0); Chloride 100 mmol/L (98-107); Estimated GFR (African America >60 (>=60); Estimated GFR (Non-African Ame 54 (>=60); Glucose 129 mg/dL (74-106); Potassium 3.9 mmol/L (3.5-5.1); Sodium 140 mmol/L (136-145); Total Protein 8.5 g/dL (6.4-8.2)
[2023-12-20 19:55] LABS: Lactate/Lactic Acid 1.6 mmol/L (0.4-2.0)
[2023-12-20 20:16] LABS: PROCALCITONIN <0.05 ng/mL (0.00-0.50)
== END 2023-12-20 21:00 | disposition home or self-care (01) ==
PROVIDERS: Emergency Provider Emergency Medicine; PCP Nurse Practitioner
DX: K80.20 Calculus of gallbladder without cholecystitis without obstruction (principal); R10.9 Unspecified abdominal pain; Z87.891 Personal history of nicotine dependence; K57.90 Diverticulosis of intestine, part unspecified, without perforation or abscess without bleeding; D35.02 Benign neoplasm of left adrenal gland; D35.01 Benign neoplasm of right adrenal gland
CPT/HCPCS: 36415; 74176; 80053; 83605; 83690; 84145; 85025; 87040; 93005; 96374; 96375; 99285; J1885; J2405

== ENCOUNTER 2024-02-13 08:40 | Outpatient (OUT) | payer OTHER, SELFPAY ==
[2024-02-13 08:57] LABS: Hemoglobin 12.8 g/dL (12.0-16.0)
--- NOTE | 2024-02-13 10:12 | RT_ITS ---
The [facility] Test Date: 2024-02-13 Pat Name: ALIYA CONDON Department: Room: - Gender: Female Catcher Plug: Gerald Caputo RRT : 1965 Requested By: Calvin Russo Order Number: [id number] Reading MD: Calvin Russo Interpretive Statements Pulmonary function testing was completed according to ATS criteria. Findings were considered accurate and reproducible. Both pre- and post-bronchodilator values utilized for spirometry. Spirometry (based on pre-bronchodilator values): -FEV1/FVC: Normal @ 77% -FEV1: Moderately reduced @ 54% -FVC: Severely reduced @ 54% -[id number]%: Reduced @ 47% -There is a partial bronchodilator response in FVC which meets >200mL increase but <12% change. Lung volumes by plethysmography (based on pre-bronchodilator values): -RV: Normal @ 107% -TLC: Normal @ 90% Diffusion capacity: -DLCO: Moderate reduction @ 60% when corrected for Hb 12.8g/dL Flow-volume loop: -Moderate restrictive pattern Impressions: -Spirometry sugggests severe restriction, but lung volumes are normal - this can be seen as an obesity pattern (stated BMI 40.2). Moderate diffusion impairment. Restriction appears to be obscuring an underlying obstructive process. Clinical correlation required. Electronically Signed On 02-15-2024 7:11:04 EDT by Calvin Russo
[2024-02-13] MEDS: ALBUTEROL SULFATE 2.5 MG/3 ML VIAL NEB IH (10:14)
[2024-02-13 11:02] LABS: Theophylline 11.3 ug/mL (10.0-20.0)
== END 2024-02-13 08:41 | disposition home or self-care (01) ==
LOC: LAB 08:41
PROVIDERS: PCP Nurse Practitioner; Visit Provider Internal Medicine
DX: J44.9 Chronic obstructive pulmonary disease, unspecified (principal); Z51.81 Encounter for therapeutic drug level monitoring; J98.11 Atelectasis
CPT/HCPCS: 36415; 80198; 85018; 94060; 94726; 94729; 99406

== ENCOUNTER 2024-03-15 07:36 | Outpatient (OUT) | payer OTHER, SELFPAY ==
[2024-03-15 07:53] LABS: Basophils Percent Auto 0.4 % (0.2-2.0); Eosinophils Absolute Auto 0.3 10^3/uL (0.0-0.7); Eosinophils Percent Auto 5.3 % (0.9-7.0); Hematocrit 40.1 % (36.0-48.0); Hemoglobin 12.6 g/dL (12.0-16.0); Immature Granulocytes Abs Auto 0.01 10^3/uL (0.00-0.03); Immature Granulocytes Pct Auto 0.2 % (0.0-0.5); Lymphocytes Absolute Auto 1.3 10^3/uL (1.2-3.8); Lymphocytes Percent Auto 24.8 % (20.5-60.0); Mean Corpuscular HGB Conc 31.4 g/dL (29.9-35.2); Mean Corpuscular Hemoglobin 28.8 pg (26.7-34.0); Mean Corpuscular Volume 91.8 fL (81.0-99.0); Mean Platelet Volume 11.7 fL (9.5-13.5); Monocytes Absolute Auto 0.5 10^3/uL (0.3-0.8); Monocytes Percent Auto 10.4 % (1.7-12.0); Neutrophils Percent Auto 58.9 % (43.0-75.0); Platelet Count 166 10^3/uL (150-450); Red Blood Count 4.37 10^6/uL (4.20-5.40); White Blood Count 5.1 10^3/uL (4.0-11.0)
[2024-03-15 07:53] LABS: Bilirubin Urine NEGATIVE (NEGATIVE); Blood Urine NEGATIVE (NEGATIVE); Clarity Urine CLEAR (CLEAR); Color Urine LT. YELLOW (YELLOW); Glucose Urine UA NEGATIVE (NEGATIVE); Ketones Urine NEGATIVE (NEGATIVE); Leukocyte Esterase Urine NEGATIVE (NEGATIVE); Nitrite Urine NEGATIVE (NEGATIVE); Protein Urine NEGATIVE (NEG/TRACE); Specific Gravity Urine <=1.005 (1.005-1.025); Urobilinogen Urine 0.2 EU/dL (0.2-1.0)
[2024-03-15 07:54] LABS: Urine Microscopic Indicated NO
[2024-03-15 08:27] LABS: Estimated Average Glucose 117 mg/dL; Glycohemoglobin A1C 5.7 % (4.5-6.2)
[2024-03-15 08:32] LABS: Alanine Aminotransferase 31 U/L (14-59); Albumin Globulin Ratio 0.7; Albumin Level 3.2 g/dL (3.4-5.0); Alkaline Phosphatase 75 U/L (46-116); Anion Gap 13.3; Aspartate Amino Transferase 21 U/L (15-37); BUN Creatinine Ratio 18.3; Bilirubin Total 0.3 mg/dL (0.2-1.0); Calcium 9.6 mg/dL (8.5-10.1); Chloride 102 mmol/L (98-107); Chol HDL Ratio 1.6; Cholesterol 121 mg/dL (<=200); Estimated GFR (African America >60 (>=60); Estimated GFR (Non-African Ame >60 (>=60); Globulin 4.4 g/dL; Glucose 110 mg/dL (74-106); HDL Cholesterol 75 mg/dL (40-60); Potassium 4.3 mmol/L (3.5-5.1); Sodium 139 mmol/L (136-145); Total Protein 7.6 g/dL (6.4-8.2); Triglycerides 61 mg/dL (<=150); VLDL CHOLESTEROL 12.2 mg/dL
[2024-03-15 08:56] LABS: Creatinine Urine Random 17.79 mg/dL (20.00-300.00); Microalbumin Urine Random <1.3 mg/dL (<=30.0)
== END 2024-03-15 07:37 | disposition home or self-care (01) ==
LOC: LAB 07:37
PROVIDERS: PCP Nurse Practitioner; Visit Provider Nurse Practitioner
DX: J44.9 Chronic obstructive pulmonary disease, unspecified (principal); E11.9 Type 2 diabetes mellitus without complications; E78.2 Mixed hyperlipidemia; I10 Essential (primary) hypertension; R60.0 Localized edema
CPT/HCPCS: 36415; 80053; 80061; 81003; 82043; 82570; 83036; 85025

== ENCOUNTER 2024-03-31 19:35 | Emergency (ER) | payer OTHER, SELFPAY ==
[2024-03-31] VITALS (12 sets, daily range): BP systolic 122–145; BP diastolic 64–93; PULSE 90–104; TEMP 37.1; O2SAT 92–95; BMI 36.2
--- OUTSIDE RECORDS SUMMARY | 2024-03-31 20:13 | XMS_ITS | CCD ---
Author Organization [facility] Care Team Providers Care [employer] Name Role Phone TOSHIA SAM Attending Unavailable TOSHIA SAM Admitting Unavailable SELF, REFERRED Referring Unavailable SELF, REFERRED Primary Care Unavailable AICHHOLZ, INTEGRATED CIRCUIT IC LAYOUT DESIGNER BREA Primary Care Unavailable SAMSA ., CORRINA Consulting Unavailable SAMSA ., CORRINA Admitting Unavailable SAMSA ., CORRINA Attending Unavailable AICHHOLZ, INTEGRATED CIRCUIT IC LAYOUT DESIGNER BREA Attending Unavailable AICHHOLZ, INTEGRATED CIRCUIT IC LAYOUT DESIGNER BREA Consulting Unavailable AICHHOLZ, INTEGRATED CIRCUIT IC LAYOUT DESIGNER BREA Primary Care Unavailable AICHHOLZ, INTEGRATED CIRCUIT IC LAYOUT DESIGNER BREA Admitting Unavailable AICHHOLZ, INTEGRATED CIRCUIT IC LAYOUT DESIGNER BREA Primary Care Unavailable ROSA M, DR MIGUEL Cline Consulting Unavailable SAMSA ., CORRINA Admitting Unavailable SAMSA ., CORRINA Attending Unavailable SAMSA ., CORRINA Consulting Unavailable SAMSA ., CORRINA Attending Unavailable SAMSA ., CORRINA Consulting Unavailable SAMSA ., CORRINA Admitting Unavailable AICHHOLZ, INTEGRATED CIRCUIT IC LAYOUT DESIGNER BREA Primary Care Unavailable AICHHOLZ, INTEGRATED CIRCUIT IC LAYOUT DESIGNER BREA Attending Unavailable DR LEANA AYOUB V Consulting Unavailable AICHHOLZ, INTEGRATED CIRCUIT IC LAYOUT DESIGNER BREA Primary Care Unavailable AICHHOLZ, INTEGRATED CIRCUIT IC LAYOUT DESIGNER BREA Admitting Unavailable AICHHOLZ, INTEGRATED CIRCUIT IC LAYOUT DESIGNER BREA Consulting Unavailable PAY ., DR SALAZAR Admitting Unavailable PAY ., DR SALAZAR Attending Unavailable PAY ., DR SALAZAR Consulting Unavailable AICHHOLZ, INTEGRATED CIRCUIT IC LAYOUT DESIGNER BREA Primary Care Unavailable QUETA .UJAN Consulting UnavailJustine Kauffman Consulting Unavailable AICHHOLZ, INTEGRATED CIRCUIT IC LAYOUT DESIGNER BREA Primary Care Unavailable PAY ., DR SALAZAR Attending Unavailable PAY ., DR SALAZAR Admitting Unavailable QUETA ., JUAN DOUGHERTY Consulting Unavailabl e POLICARO, KENDY Consulting Unavailable AICHRASHMI, ENRIQUE BREA Attending Unavailable AICHHOLZ, ENRIQUE BREA Consulting Unavailable AICHHOLZ, INTEGRATED CIRCUIT IC LAYOUT DESIGNER BREA Primary Care Unavailable AICHHOLZ, INTEGRATED CIRCUIT IC LAYOUT DESIGNER BREA Admitting Unavailable AICHHOLZ, BREA J Primary Care Physician Yessica SPENCER Unavailable TOSHIA SAM Attending Unavailable MARLENE SOTO Attending Unavailable Aichholsherwin COLLADO, Brea Unavailable Jose M Light MD Primary Care Provider Roby Bob Attending Unavailabl e Al-Marramarielle, Roby Yaanabell Admitting Unavailabl e OJUKWU, Mbanefo Admitting Unavailable OJUKWU, Mbanefo Attending Unavailable Moses Fischer Attending Unavailable Ramses Hair Attending Unavailable DembosMariama garcia Attending Unavailable Al-Marrawi, Roby Davis Attending Unavailabl e Al-Marrawi, Roby Davis Attending Unavailabl e OJUKWU, Mbanefo Referring Unavailable Mariama Barcenas Admitting Unavailable Mariama Barcenas Attending Unavailable Al-Marrawi, Roby Davis Attending Unavailabl e Al-Marrawi, Mhd Yaser Admitting Unavailabl e AICHHOLZ, BREA Attending Unavailable AICHHOLZ, BREA Attending Unavailable AICHHOLZ, BREA Attending Unavailable AICHHOLZ, BREA Attending Unavailable Allergies Allergy Classification Reported Allergen(s) Allergy Type Date of Onset Reaction(s) Facility (1 source) No Known Medication Allergies; Translations: [No Known Medication Allergies] Propensity to adverse reactions (disorder) [facility] Repository Medications Current Medications Medication Drug Class(es) Dates Sig (Normalized) Sig (Original) [id number] 200 actuat albuterol 0.09 mg/actuat metered dose inhaler (3 sources) beta2-Adrenergic Agonist take 2 puff(s) by mouth every four hours as needed Ventolin HFA 108 (90 Base) MCG/ACT inhaler INHALE 2 PUFFS BY MOUTH FOR SHOTNESS OF BREATH EVERY 4 HOURS NEEDED 0 Active albuterol 0.833 mg/ml / ipratropium bromide 0.167 mg/ml inhalation solution (11 sources) Anticholinergic, beta2-Adrenergic Agonist Start: 06-17-2023 take [...] Discontinued (Ineffective) apixaban 5 mg oral tablet (18 sources) Factor Xa Inhibitor Start: 06-28-2023 take 1 tablet by mouth twice daily Eliquis 5 mg oral tablet 5 mg = 1 tab(s), Oral, BID, # 180 tab(s), Refills(s) 3, Pharmacy: [facility] 1155, 175, cm, 06/28/23 10:58:00 EDT, Height/Length Dosing, 114.6, kg, 06/28/23 10:58:00 EDT, Weight Dosing Start Date: 06/28/23 Status: Ordered Start: 06-17-2023 take 2 tablets by [facility] twice daily, then take 1 tablet by mouth twice daily Eliquis 5 mg oral tablet See Instructions, 2 tab(s) Oral BID x 6 days then 1 tab oral BID x 30 days, # 84 tab(s), Refills(s) 0 Start Date: 06/17/23 Status: Ordered aspirin 81 mg oral tablet (11 sources) Platelet Aggregation Inhibitor, Nonsteroidal Anti-inflammatory Drug Start: 06-17-2023 Aspirin Low Dose 81 mg oral enteric coated tablet Refills(s) 0 Start Date: 06/17/23 Status: Ordered take 1 tablet by mouth in the mo rning Aspirin Low Dose 81 MG EC tablet Take 81 mg by mouth in the morning. 0 Active atorvastatin 40 mg oral tablet (11 sources) HMG-CoA Reductase Inhibitor Start: 10-12-2023 take 1 tablet by mouth once daily atorvastatin (Lipitor) 40 MG tablet Indications: Mixed hyperlipidemia (CMS/HCC) TAKE ONE TABLET BY MOUTH ONCE DAILY 30 tablet 5 10/12/2023 Active Start: 06-17-2023 ATORVASTATIN C ALCIUM 40 MG TABLET ATORVASTATIN CALCIUM 40 MG TABLET Start Date: 06/17/23 Status: Ordered busPIRone hydrochloride 15 mg oral tablet (12 sources) Start: 06-17-2023 End: 01-07-2024 take 1 tablet by mouth three times daily busPIRone 15 mg Tab 15 mg = 1 tab(s), Oral, TID, # 90 tab(s), Refills(s) 0 Start Date: 06/17/23 Status: Ordered calcium carbonate 1500 mg / cholecalciferol 200 unt oral tablet (3 sources) Vitamin D Start: 06-09-2023 take 1 tablet by mouth in the morning Calcium Carb-Cholecalci ferol 600-5 MG-MCG tablet Take 1 tablet by [...] 12/05/2023 01/04/2024 Active Daily Harvinder oral tablet (8 sources) Start: 06-17-2023 Daily Harvinder oral tablet 1 tab(s), Oral, Daily, 30 tab(s), Refill(s) 0 Start Date: 06/17/23 Status: Ordered dicyclomine hydrochloride 10 mg oral capsule (1 source) Anticholinergic Start: 09-25-2023 End: 10-02-2023 take 1 capsule by mouth four times daily Bentyl 10 mg Cap 10 mg = 1 cap(s), Oral, QID, X 7 day(s), # 28 cap(s), Refills(s) 0, Pharmacy: [facility] 1155, 175, cm, 09/25/23 18:25:00 EST, Height/Length Dosing, 121, kg, 09/25/23 18:25:00 EST, Weight Dosing Start Date: 09/25/23 Stop Date: 10/02/23 Status: Ordered DULoxetine 60 mg delayed release oral capsule (11 sources) Serotonin and Norepinephrine Reuptake Inhibitor Start: 06-09-2023 duloxetine 60 mg oral delayed release capsule Refills(s) 0 Start Date: 06/17/23 Status: Ordered fluticasone propionate 0.05 mg/actuat metered dose nasal spray (20 sources) Corticosteroid Start: 06-17-2023 take 2 puff(s) by inhalation twice daily Flovent HFA 110 Aerosol = 2 puff(s), Inhalation, BID, # 12 gram, Refills(s) 0 Start Date: 06/17/23 Status: Ordered Start: 06-17-2023 fluticasone Na margaret 0.05 mg/inh Meggett 2 spray(s), Nasal, Daily, 16 gram, Refill(s) [...] / glycopyrrolate 0.009 mg/actuat metered dose inhaler (11 sources) beta2-Adrenergic Agonist Start: 08-18-2023 take 2 puff(s) by inhalation twice daily Bevespi Aerosphere 9 mcg-4.8 mcg/inh inhalation aerosol 2 puff(s), Inhalation, BID, Refill(s) 11 Start Date: 06/17/23 Status: Ordered take 2 puff(s) by in halation in the morning Bevespi Aerosphere 9-4.8 MCG/ACT aerosol Inhale 2 puffs in the morning and 2 puffs before bedtime. 0 Active furosemide 20 mg oral tablet (11 sources) Loop Diuretic Start: 06-09-2023 take 1 tablet by mouth once daily furosemide 20 mg Tab 20 mg = 1 tab(s), Oral, Daily, # 30 tab(s), Refills(s) 0 Start Date: 06/17/23 Status: Ordered gabapentin 300 mg oral capsule (11 sources) Anti-epileptic Agent Start: 06-17-2023 take 1 capsule by mouth twice daily gabapentin 300 mg Cap 300 mg = 1 cap(s), Oral, BID, # 60 cap(s), Refills(s) 0 Start Date: 06/17/23 Status: Ordered hydroCHLOROthiazide 25 mg / lisinopril 20 mg oral tablet (11 sources) Thiazide Diuretic, Angiotensin Converting Enzyme Inhibitor Start: 06-17-2023 hydrochlorothiaz erika-lisinopril 25 mg-20 mg Tab 1 tab(s), Oral, Daily, 30 tab(s), Refill(s) 0 Start Date: 06/17/23 Status: Ordered lamoTRIgine 25 mg oral tablet (11 sources) Mood Stabilizer, Anti-epileptic Agent Start: 10-12-2023 take 2 tablets by mouth at bedtime lamoTRIgine (LaMICtal) 25 MG tablet Indications: Anxiety and depression (CMS/HCC) Take 2 tablets (50 mg) by mouth at bedtime 60 tablet 5 10/12/2023 Active Start: 06-17-2023 take 1 tablet by tamar th twice daily lamotrigine 25 mg Tab 25 mg = 1 tab(s), Oral, BID, # 60 tab(s), Refills(s) 0 Start Date: 06/17/23 Status: Ordered pioglitazone 15 mg oral tablet (12 sources) Peroxisome Proliferator Receptor alpha Agonist, Peroxisome Proliferator Receptor gamma Agonist, Thiazolidinedione Start: 06-17-2023 End: 03-09-2024 take 1 tablet by mouth once daily pioglitazone 15 mg Tab 15 mg = 1 tab(s), Oral, Daily, # 30 tab(s), Refills(s) 0 Start Date: 06/17/23 Status: Ordered Potassium Chloride (11 sources) Start: 06-17-2023 Potassium Chloride (Zcb-Uesu-Xlg 10) 10 mEq oral tablet, extended release Refills(s) 0 Start Date: 06/17/23 Status: Ordered take 1 tablet by mouth in the mo rning potassium chloride CR (Klor-Con) 10 MEQ ER tablet Take 10 mEq by mouth in the morning. 0 Active pramipexole dihydrochloride 0.5 mg oral tablet (11 sources) Nonergot Dopamine Agonist Start: 06-17-2023 take 1 tablet by mouth three times daily pramipexole 0.5 mg oral tablet 0.5 mg = 1 tab(s), Oral, TID, # 270 tab(s), Refills(s) 0 Start Date: 06/17/23 Status: Ordered theophylline 300 mg extended release oral tablet (11 sources) Methylxanthine Start: 06-09-2023 take 1 tablet by mouth every twelve hours theophylline 300 mg ER Tab 300 mg = 1 tab(s), Oral, q12hr, # 60 tab(s), Refills(s) 0 Start Date: 06/17/23 Status: Ordered traZODone hydrochloride 50 mg oral tablet (8 sources) Serotonin Reuptake Inhibitor Start: 06-17-2023 take 1 tablet by mouth once daily at bedtime traZODONE 50 mg Tab 50 mg = 1 tab(s), Oral, Once a day (at bedtime), # 30 tab(s), Refills(s) 0 Start Date: 06/17/23 Status: Ordered Ventolin HFA 90 mcg/inh Aerosol-Adpt (8 sources) Start: 06-17-2023 take 1 puff(s) by inhalation four times daily for wheezing Ventolin HFA 90 mcg/inh Aerosol-Adpt 1 puff(s), Inhalation, QID for wheezing, 18 gram, Refill(s) 0 Start Date: 06/17/23 Status: Ordered Zofran ODT 4 mg Tab-Dis (4 sources) Start: 09-25-2023 take 1 tablet by mouth [...] 12-05-2023 12-05-2023 Chronic Other aftercare (1 source) USP (current) use of aspirin; Translations: [INFECTION CONTROL MANAGER CURRENT USE OF ASPIRIN] Onset: 02-26-2023 Episodic Other aftercare (1 source) Other fdc (current) drug therapy; Translations: [OTH INFECTION CONTROL MANAGER CURRENT DRUG THERAPY] Onset: 02-26-2023 Episodic Other aftercare (1 source) Long-term current use of drug therapy; Translations: [Other long filler cigar roller machine (current) drug therapy] Onset: 06-16-2023 Episodic Other [...] NICOTINE DEPEND] Onset: 03-31-2022 Episodic Substance-related disorders (15 sources) Nicotine dependence, cigarettes, uncomplicated; Translations: [Nicotine [...] Test Name Value Interpretation Reference Range Facility Methylmalonic Acidon 024 Methylmalonate [Moles/Vol] 301 nmol/L Invalid Interpretation Code 0-378 [facility] Comment on above: Result Comment: This test was developed and its performance characteristics determined by [employer]. It has not been cleared or approved by the Food and Drug Administration. Performed at: [facility] [id number] MD Tony Laird Performed By: #### 2 [id number], [id number], 9898688, 6473428, 3403830, 0451889, [id number] ####[facility] [address] [place] [address] Oncology Progress Noteon Oncology Progress Note Chief Complaint PE Pt states she has had a couple visits to hosp. [facility] Gallbladder. Pt just has ques on how blood work results are. Diagnoses 1. History of pulmonary embolism (Z86.711: Personal history of pulmonary embolism) Oncological History/ROS/PE/Assess ment and Plan Aliya was referred to our hematology office at [facility] for Thrombophilia work up and decision about duration of anticoagulation for the acute PE diagnosed on . She is a 57-year-old female cigarette smoker with history of hypertension, yxk-gwygkhy-nttxoegpu diabetes mellitus, obesity, chronic hypoxic respiratory failure on 3 L home oxygen, and depression who presented on 06/16/23 to [facility] ER with complaints of right-sided chest pain [...] pain or edema. ROS is otherwise negative. 01/16/24 energy is so so she now only uses oxygen at night when she sleeps. dyspnea is good has a lot of anxiety, is on meds for this and depression denies n/v/d/c. denies black, tarry stool. She is eating and drinking ok has occasional numbness and tingling in her fingers no pain beyond the arthritis in her legs is on antibiotics for current sinus infection has muscle cramps and restless legs. Is cold all of the time denies any dizziness or lightheadedness rex benson sees pulmonology next month and is due for her annual low dose CT scan has had some GI issues in the past with pain, cramping a lot. has had colonoscopy at [facility] Physical Examination General: alert, no acute distress HENMT: Normocephalic, atraumatic. Neck: supple and no LAP or thyromegaly. Cardiovascular: regular rate and rhythm, No murmurs Respiratory: Lungs CTA, respirations non labored. Abdomen: Soft nontender nondistended without hepatosplenomegaly or masses clinically. Extremities: no deformity, no edema. Lymph system: Currently she has no lymphadenopathy in her cervical area subclavian area/axillary areas and inguinal areas bilaterally. Neurological: oriented x 4, LOC appropriate for age, CN II-XII intact, motor strength equal & normal bilaterally, sensation normal bilaterally, speech normal Skin: No rash. Psychiatric: Normal mood and interaction. Impression and Plan 1. Acute PE, unprovoked on 06/16/23: Likely due to her multiple comorbidities but no clear provoking factors. no recent travel or recent surgeries. - 06/28/23 Her thrombophilia work up came back negative for FV leiden mutation, FII mutation, LA, Anti cardiolipin antibodies, B2GL Ab and normal AT III, Protein C and protein S. Normal D dimer. - PLAN THEREFORE AND SINCE IT IS THE FIRST THROMBOTIC EVENT IS TO TREAT CHRISTOS WITH 6 MONTHS OF ANTICOAGGULATION and recheck D dimer, CBCD and CMP in 6 months and see her then to stop Eliquis if she feels fine and d dimer is normal. December 2023 she has not had any new concerns. Repeat labs ok, so patient may stop her Eliquis at this time. She is in agreement and has no questions related to this. 2. Bilateral adrenal nodules: likely benign adenomas: 1.2 cm on the right and 1 cm in the left adrenal glands. Will need repeat CT adrenals in 12/2023. December 2023 has not had repeat of this to date, discussed with primary team 3. iron deficiency anemia December 2023 iron studies low, will initiate oral iron supplementation. Will repeat iron studies in about 6 months, sooner if needed. She will call if she cannot tolerate the iron tabs. Follow-up With When Contact Information Swapna ANGUIANO, Mariama Chen, ONC [facility] [address] [place] [phone] Additional Instructions: iron studies, b12, folate, mm (more content not included)... Normal [facility] CHEMISTRYOrdered By: SYSTEM SYSTEM on 01-16-2024 Cobalamin (Vitamin B12) [Mass/Vol] 420 pg/mL Normal 50 - 1500 pg/mL Remisol Chem Ferritin [Mass/Vol] 63 ng/mL Normal 11 - 307 ng/mL Remisol Chem Folate [Mass/Vol] 15.3 ng/mL Normal >=6.7ng/mL Remisol Chem Iron [Mass/Vol] 63 ug/dL Normal 35 - 153 mcg/dL Remisol Chem Iron binding capacity [Mass/Vol] 365 ug/dL Normal 250 - 400 mcg/dL Remisol Chem Iron saturation [Mass fraction] 17 % Low 20 - 50 % Remisol Chem Transferrin [Mass/Vol] 261 mg/dL Normal 200 - 370 mg/dL Remisol Chem Consent for Treatmenton 12-29 Consent for Treatment [id number] .[id number] Normal [facility] Consent for Treatment [id number] .[id number] Normal [facility] Ferritinon 01-16-2024 Ferritin [Mass/Vol] 63 ng/mL Normal 11-307 [facility] Comment on above: Performed By: #### 2 872830, 6341346, 6121727, 2334645, 4064318, 1058092, [id number] ####[facility] [address] [place] [address] Folateon 01-16-2024 Folate [Mass/Vol] 15.3 ng/mL Normal >=6.7 [facility] Comment on above: Performed By: #### 2 210120, 3242741, 6302650, 5417403, 6066406, 2079706, 72533558 ####[facility] [address] [place] [address] Ironon 01-16-2024 Iron [Mass/Vol] 63 microgram/dL Normal 35-153 [facility] Comment on above: Performed By: #### 2 679396, 0565859, 2689285, 5422834, 3596119, 2717704, 18534181 ####[facility] [address] [place] [address] Iron Saturationon 01-16-2024 Iron binding capacity [Mass/Vol] 365 microgram/dL Normal 250-400 [facility] Comment on above: Performed By: #### 2 138530, 3052869, 1464245, 8122776, 0127107, 9633066, 08542095 ####[facility] [address] [place] [address] Iron saturation [Mass fraction] 17 % Low 20-50 [facility] Comment on above: Performed By: #### 2 128127, 3236141, 4397410, 5757252, 2539174, 4219204, 69850014 ####[facility] [address] [place] [address] Transferrinon 01-16-2024 Transferrin [Mass/Vol] 261 mg/dL Normal 200-370 [facility] Comment on above: Performed By: #### 2 184830, 0813781, 5605677, 9563369, 2459028, 9798301, 35013305 ####[address] [address] Vit B12on 01-16-2024 Cobalamin (Vitamin B12) [Mass/Vol] 420 pg/mL Normal 50-1500 [facility] Comment on above: Performed By: #### 2 361074, 9293889, 5076144, 0203915, 1628164, 7617562, 15980462 ####[facility] [address] [place] [address] CBC w/ Auto Diffon 4 Basophils/100 WBC (Bld) 0.6 % Normal 0.0-2.0 [facility] Comment on above: Performed By: #### 2 637126, 9173884, 7993747, [id number] ####[address] [place] [address] Basophils/Leukocytes Auto (Bld) [Pure # fraction] 0.0 E9/L Normal 0.0-0.2 [facility] Comment on above: Performed By: #### 2 453833, 4655974, 5751544, 41736017 ####[facility] [address] [place] [address] Eosinophils (Bld) [#/Vol] 0.2 E9/L Normal 0.0-0.5 [facility] Comment on above: Performed By: #### 2 100877, 8207662, 8322603, 83623629 ####[address] [address] Eosinophils/100 WBC (Bld) 3.0 % Normal 0.0-8.0 [facility] Comment on above: Performed By: #### 2 796543, 2322613, 7893286, 09857160 ####[address] [address] Erythrocyte distribution width (RBC) [Ratio] 15.7 % High 10.9-14.2 [facility] Comment on above: Performed By: #### 2 191355, 4663113, 8896979, 19387261 ####[address] [address] Hematocrit (Bld) [Volume fraction] 36.9 % Normal 34.0-46.0 [facility] Comment on above: Performed By: #### 2 596484, 6020189, 8688711, 72576063 ####[address] [address] Hemoglobin (Bld) [Mass/Vol] 12.4 g/dL Normal 12.0-16.0 [facility] Comment on above: Performed By: #### 2 182292, 0902176, 7810761, 59894449 ####[address] [address] Lymphocytes (Bld) [#/Vol] 1.4 E9/L Normal 1.0-4.0 [facility] Comment on above: Performed By: #### 2 186092, 2289465, 4494082, 68029001 ####[address] [address] Lymphocytes/100 WBC (Bld) 20.7 % Normal 14.0-50.0 [facility] Comment on above: Performed By: #### 2 630205, 4246573, 7574805, 58914709 ####[address] [address] MCH (RBC) [Entitic mass] 29.5 pg Normal 27.0-34.0 [facility] Comment on above: Performed By: #### 2 655540, 0846943, 8774451, 39010525 ####[address] [address] MCHC (RBC) [Mass/Vol] 33.6 g/dL Normal 31.4-36.0 [facility] Comment on above: Performed By: #### 2 467971, 3896868, 2845824, 91889927 ####[address] [address] MCV (RBC) [Entitic vol] 87.9 fL Normal 80.0-100.0 [facility] Comment on above: Performed By: #### 2 707178, 4639748, 1284049, 68360687 ####[address] [address] Monocytes (Bld) [#/Vol] 0.6 E9/L Normal 0.2-1.0 [facility] Comment on above: Performed By: #### 2 643766, 5141852, 1459608, 12173049 ####[address] [address] Neutrophils (Bld) [#/Vol] 4.5 E9/L Normal 2.0-7.5 [facility] Comment on above: Performed By: #### 2 664261, 2253870, 0460567, 20699590 ####[address] [address] Neutrophils/100 WBC (Bld) 66.7 % Normal 36.0-75.0 [facility] Comment on above: Performed By: #### 2 498336, 8475410, 1953283, 81125473 ####[address] [place] [address] Platelet mean volume (Bld) [Entitic vol] 10.3 fL Normal 6.4-10.8 [facility] Comment on above: Performed By: #### 2 672826, 0839877, 5736066, 51389792 ####[address] [place] [address] Platelets (Bld) [#/Vol] 196.0 E9/L Normal 150.0-500.0 [facility] Comment on above: Performed By: #### 2 160742, 5891552, 8871356, 88363375 ####[address] [place] [address] RBC (Bld) [#/Vol] 4.2 E12/L Low 4.3-5.9 [facility] Comment on above: Performed By: #### 2 813361, 5266844, 4317416, 94316528 ####[facility] [address] [place] [address] WBC corrected for nucl RBC Auto (Bld) [#/Vol] 6.8 E9/L Normal 4.0-11.0 [facility] Comment on above: Performed By: #### 2 757668, 2500387, 2176885, 61024502 ####[facility] [address] [place] [address] CHEMISTRYOrdered By: SYSTEM SYSTEM on 01-09-2024 Albumin [Mass/Vol] 4.1 g/dL Normal 3.3 - 5.0 gm/dL Remisol Chem Albumin/Globulin [Mass ratio] 1.2 {ratio} Normal 1.1 - 2.2 Remisol Chem ALP [Catalytic activity/Vol] 61 [iU]/d Normal 21 - 98 Int._Unit/L Remisol Chem ALT No additional P-5'-P [Catalytic activity/Vol] 17 [iU]/d Normal 6 - 46 Int._Unit/L Remisol Chem Anion gap [Moles/Vol] 12 mmol/L Normal 6 - 16 mEq/L R emisol Chem AST [Catalytic activity/Vol] 18 [iU]/d Normal 5 - 43 Int._Unit/L Remisol Chem Bilirubin [Mass/Vol] 0.4 mg/dL Normal 0.0 - 1 .1 mg/dL Remisol Chem Calcium [Mass/Vol] 9.8 mg/dL Normal 8.9 - 11. 1 mg/dL Remisol Chem Chloride [Moles/Vol] 101 mmol/L Normal 101 - 1 11 mmol/L Remisol Chem CO2 [Moles/Vol] 28 mmol/L Normal 21 - 31 mmol/L Remisol Chem Creatinine [Mass/Vol] 1.0 mg/dL Normal 0.5 - 1.3 mg/dL Remisol Chem eGFR 65 mL/min/1.73 m2 Normal >=59mL/min /1 .73 m2 Remisol Chem Globulin (S) [Mass/Vol] 3.4 g/dL Normal 1.4 - 4.0 gm/dL Remisol Chem Glucose [Mass/Vol] 98 mg/dL Normal 55 - 199 mg/dL Remisol Chem Potassium [Moles/Vol] 4.3 mmol/L Normal 3.5 - 5.3 mmol/L Remisol Chem Protein [Mass/Vol] 7.5 g/dL Normal 6.0 - 7.8 gm/dL Remisol Chem Sodium [Moles/Vol] 137 mmol/L Normal 135 - 145 mmol/L Remisol Chem Urea nitrogen [Mass/Vol] 21 mg/dL Normal 5 - 21 mg/dL Remisol Chem Urea nitrogen/Creatinine [Mass ratio] 21 mg/mg High 10 - 20 Remisol Chem CMPon 01-09-2024 Albumin [Mass/Vol] 4.1 g/dL Normal 3.3-5.0 [facility] Comment on above: Performed By: #### 2 268320, 9472911, 6606315, 80615381 ####[facility] [address] [place] [address] Albumin/Globulin (S) [Mass conc ratio] 1.2 Normal 1.1-2.2 [facility] Comment on above: Performed By: #### 2 909408, 3830127, 5817276, 85784732 ####[facility] [address] [place] [address] ALP [Catalytic activity/Vol] 61 Int._Unit/L Normal 21-98 [facility] Comment on above: Performed By: #### 2 365970, 6974148, 9377198, 88182236 ####[facility] [address] [place] [address] ALT No additional P-5'-P [Catalytic activity/Vol] 17 Int._Unit/L Normal 6-46 [facility] Comment on above: Performed By: #### 2 204196, 0437684, 6044247, 54899390 ####[facility] [address] [place] [address] Anion gap [Moles/Vol] 12 mmol/L Normal 6-16 [facility] Comment on above: Performed By: #### 2 701313, 7093278, 9956249, 82061991 ####[facility] [address] [place] [address] AST [Catalytic activity/Vol] 18 Int._Unit/L Normal 5-43 [facility] Comment on above: Performed By: #### 2 434242, 9490573, 5395617, 28601204 ####[facility] [address] [place] [address] Bilirubin [Mass/Vol] 0.4 mg/dL Normal 0.0-1.1 [facility] Comment on above: Performed By: #### 2 704259, 7453653, 5578274, 50619251 ####[facility] [address] [place] [address] Calcium [Mass/Vol] 9.8 mg/dL Normal 8.9-11.1 [facility] Comment on above: Performed By: #### 2 565671, 1371076, 7028218, 57146929 ####[facility] [address] [place] [address] Chloride [Moles/Vol] 101 mmol/L Normal 101-111 [facility] Comment on above: Performed By: #### 2 716805, 6375958, 9192965, 13953921 ####[facility] [address] [facility] [place] [address] CO2 [Moles/Vol] 28 mmol/L Normal 21-31 [facility] Comment on above: Performed By: #### 2 334797, 5714970, 5785997, 67677577 ####[facility] [address] [place] [address] Creatinine [Mass/Vol] 1.0 mg/dL Normal 0.5-1.3 [facility] Comment on above: Performed By: #### 2 045816, 0644093, 8349355, 13163260 ####[facility] [address] [place] [address] Globulin (S) [Mass/Vol] 3.4 g/dL Normal 1.4-4.0 [facility] Comment on above: Performed By: #### 2 233783, 0265721, 3537670, 70171057 ####[facility] [address] [place] [address] Glucose [Mass/Vol] 98 mg/dL Normal 55-199 [facility] Comment on above: Performed By: #### 2 777064, 7995514, 7508017, 03076675 ####[facility] [address] [place] [address] Potassium [Moles/Vol] 4.3 mmol/L Normal 3.5-5.3 [facility] Comment on above: Performed By: #### 2 448163, 0770913, 3725540, 96641348 ####[facility] [address] [place] [address] Protein [Mass/Vol] 7.5 g/dL Normal 6.0-7.8 [facility] Comment on above: Performed By: #### 2 829712, 2385825, 1605653, 35319381 ####[facility] [address] [facility] [address] Sodium [Moles/Vol] 137 mmol/L Normal 135-145 [facility] Comment on above: Performed By: #### 2 213647, 2126025, 0568022, 26936295 ####[facility] [address] [place] [address] Urea nitrogen [Mass/Vol] 21 mg/dL Normal 5-21 [facility] Comment on above: Performed By: #### 2 474861, 9837672, 4698396, 83537106 ####[facility] [address] [place] [address] Urea nitrogen/Creatinine [Mass ratio] 21 No Units High 10-20 [facility] Comment on above: Performed By: #### 2 634998, 2657012, 6088240, 81664369 ####[facility] [address] [place] [address] COAGULATIONOrdered By: Catina Miles on 01-09-2024 Fibrin D-dimer FEU (PPP) [Mass/Vol] 404 ng/mL FEU Normal 215 - 500 ng/mL FEU [facility] Auto Coag Comment on above: Interpretive Data: T his assay is intended for use as an [...] infections, pneumonia, severe skin infections Liver cirrhosis Consent for Treatmenton 12-29 Consent for Treatment [id number]#1 .00TIFF Normal [facility] D-Dimeron 01-09-2024 Fibrin D-dimer FEU (PPP) [Mass/Vol] 404 [id number] Normal 215-500 [facility] Comment on above: Result Comment: This assay [...] infections Liver cirrhosis Performed By: #### 2 492186, 3515981, 5874603, 78922902 ####[facility] [address] [place] [address] HEMATOLOGYOrdered By: SYSTEM SYSTEM on 01-09-2024 Basophils/100 WBC (Bld) 0.6 % Normal 0.0 - 2.0 % Remisol Heme Basophils/Leukocytes Auto (Bld) [Pure # fraction] 0.0 E9/L Normal 0.0 - 0.2 E9/L Rem[facility] Heme Eosinophils (Bld) [#/Vol] 0.2 E9/L Normal 0.0 - 0.5 E9/L Rem[facility] Heme Eosinophils/100 WBC (Bld) 3.0 % Normal 0.0 - 8.0 % Remisol Heme Erythrocyte distribution width (RBC) [Ratio] 15.7 % High 10.9 - 14.2 % Remisol Heme Hematocrit (Bld) [Volume fraction] 36.9 % Normal 34.0 - 46.0 % Remisol Heme Hemoglobin (Bld) [Mass/Vol] 12.4 g/dL Normal 12.0 - 16.0 gm/dL Rem[facility] Heme Lymphocytes (Bld) [#/Vol] 1.4 E9/L Normal 1.0 - 4.0 E9/L [facility] Heme Lymphocytes/100 WBC (Bld) 20.7 % Normal 14.0 - 50.0 % Remisol Heme MCH (RBC) [Entitic mass] 29.5 pg Normal 27.0 - 34.0 pg Remisol Heme MCHC (RBC) [Mass/Vol] 33.6 g/dL Normal 31.4 - 36.0 gm/dL Remisol Heme MCV (RBC) [Entitic vol] 87.9 fL Normal 80.0 - 100.0 fL Rem[facility] Heme Monocytes (Bld) [#/Vol] 0.6 E9/L Normal 0.2 - 1.0 E9/L [facility] Heme Monocytes/100 WBC (Bld) 9.0 % Normal 4.0 - 14.0 % Rem[facility] Heme Neutrophils (Bld) [#/Vol] 4.5 E9/L Normal 2.0 - 7.5 E9/L [facility] Heme Neutrophils/100 WBC (Bld) 66.7 % Normal 36.0 - 75.0 % Remisol Heme Platelet mean volume (Bld) [Entitic vol] 10.3 fL Normal 6.4 - 10.8 fL Rem[facility] Heme Platelets (Bld) [#/Vol] 196.0 E9/L Normal 150.0 - 500.0 E9/L Rem[facility] Heme RBC (Bld) [#/Vol] 4.2 E12/L Low 4.3 - 5.9 E12/L [facility] Heme WBC corrected for nucl RBC Auto (Bld) [#/Vol] 6.8 E9/L Normal 4.0 - 11.0 E9/L Rem[facility] Heme eGFRon 01-09-2024 eGFR 65 mL/min/1.73 m2 Normal >=59 [facility] Comment on above: Order Comment: Order added by Discern Expert. Performed By: #### 2 653607, 8678806, 1751718, 15133118 ####[facility] [address] [place] [address] CT Abdomen/Pelvis w/ Contras ton 11-24-2023 CT Abdomen/Pelvis w/ Contrast Exam Date/Time: 09/25/2023 20:23 EST Reason for Exam: Abdominal pain, acute, nonlocalized;Other (please specify) Addendum IMPRESSION: NO ACUTE ABDOMINOPELVIC PROCESS. CHOLELITHIASIS. HEPATOMEGALY. [...] normal limits. The kidneys enhance uniformly. Simple 3.5 cm right renal cyst requiring no further follow-up. No urinary tract calculi or hydronephrosis. Urinary [...] dose to as low as reasonably achievable. Addendum Ordering Provider: Moses Fischer FINAL REPORT Dictated: 11/24/2023 2:25 pm Vincenzo Colvin DO Signed (Electronic Signature): 11/24/2023 2:25 pm Signed by: Vincenzo Colvin DO Transcribed by: NOHEMY Technologist: [facility] Report IMPRESSION: NO ACUTE ABDOMINOPELVIC PROCESS. CHOLELITHIASIS. [...] low as reasonably achievable. Report Ordering Provider: Moses Fischer FINAL REPORT Dictated: 09/26/2023 9:23 am Vincenzo Colvin DO Signed (Electronic Signature): 09/26/2023 9:23 am Signed by: Vincenzo Colvin DO Transcribed by: NOHEMY Technologist: VIN Technical Comments GFR (mL/min/1/73m2) 74 Contrast: Isovue 300 Contrast amount in ml's: 100 Report last revised on 11/24/2023 14:25 EST by Vincenzo Colvin DO [facility] Prescriptions/Work Noteson 1 12-14-2022 Prescriptions/Work Notes [id number]# 1.00TIFF Normal [facility] Discharge Instructionson Discharge Instructions [id number]# 1.00TIFF [facility] Monitor Recordon 09-26-2023 Monitor Record [id number]# 1.00TIFF Normal [facility] UA With Cult Reflexon 2022 Bilirubin Ql (U) Negative Normal Negative [facility] Comment on above: Performed By: #### 1 2147419 ####[facility] [address] [place] [address] Clarity (U) CLEAR Normal Clear [facility] Comment on above: Performed By: #### 1 3102261 ####[facility] [address] [place] [address] Color (U) YELLOW Normal Yellow [facility] Comment on above: Performed By: #### 1 6473772 ####[facility] [address] [place] [address] Epithelial cells.squamous LM.HPF (Urine sed) [#/Area] 0-2 Normal 0-2 [facility] Comment on above: Performed By: #### 1 4004801 ####[facility] [address] [place] [address] Glucose Test strip (U) [Mass/Vol] Negative Normal Negative [facility] Comment on above: Performed By: #### 1 3630012 ####[address] [address] Hemoglobin Ql (U) Negative Normal Negative [facility] Comment on above: Performed By: #### 1 7909302 ####[address] [address] Ketones (U) [Mass/Vol] Negative Normal Negative [facility] Comment on above: Performed By: #### 1 0983818 ####[address] [address] [place].plasma/[place] .RBC (Bld) [Mass ratio] 0-3 Normal 0-3 [facility] Comment on above: Performed By: #### 1 6192357 ####[address] [address] Nitrite Ql (U) Negative Normal Negative [facility] Comment on above: Performed By: #### 1 4258173 ####[address] [address] pH (U) 6.5 [pH] Invalid Interpretation Code 5.0-9.0 [facility] Comment on above: Performed By: #### 1 5563024 ####[address] [address] Protein (U) [Mass/Vol] Negative Normal Negative [facility] Comment on above: Performed By: #### 1 4918377 ####[address] [address] Specific gravity (U) [Rel density] <=1.005 Invalid Interpretation Code 1.005-1.030 [facility] Comment on above: Performed By: #### 1 6780045 ####[facility] [address] [place] [address] Type of Urine collection method Clean Catch Normal [facility] Comment on above: Performed By: #### 1 3414869 ####[facility] [address] [place] [address] Urobilinogen Qn (U) 0.2 {Nayla'U}/dL Normal 0.0-1.0 [facility] Comment on above: Performed By: #### 1 9661545 ####[facility] [address] [place] [address] WBC Auto Ql (U) Negative Normal Negative [facility] Comment on above: Performed By: #### 1 0038309 ####[facility] [address] [place] [address] WBC LM.HPF (Urine sed) [#/Area] 0-5 Normal 0-5 [facility] Comment on above: Performed By: #### 1 9279061 ####[facility] [address] [place] [address] Auto Diffon 09-25-2023 Basophils/100 WBC (Bld) 0.6 % Normal 0.0-2.0 [facility] Comment on above: Order Comment: Order Added by Discern Expert. Performed By: #### 2 474276, 3674441, 9962041, 7277864, 2786146, 52697845 ####[facility] [address] [place] [address] Basophils/Leukocytes Auto (Bld) [Pure # fraction] 0.1 E9/L Normal 0.0-0.2 [facility] Comment on above: Order Comment: Order Added by Discern Expert. Performed By: #### 2 667704, 8866493, 2887083, 6675656, 3154889, 25249305 ####[facility] [address] [place] [address] Eosinophils/100 WBC (Bld) 1.5 % Normal 0.0-8.0 [facility] Comment on above: Order Comment: Order Added by Quinton Expert. Performed By: #### 2 108483, 9746788, 3838131, 6108389, 2831088, 90328026 ####[place] [address] [place] [address] Eosinophils/Leukocytes Auto (Bld) [Pure # fraction] 0.1 E9/L Normal 0.0-0.5 [facility] Comment on above: Order Comment: Order Added by Quinton Expert. Performed By: #### 2 686267, 6765357, 0005361, 6671557, 6421693, 57600898 ####[address] [address] Lymphocytes/100 WBC (Bld) 15.3 % Normal 14.0-50.0 [facility] Comment on above: Order Comment: Order Added by Quinton Expert. Performed By: #### 2 237325, 4004935, 5195135, 1092121, 0975645, 64645524 ####[address] [address] Lymphocytes/Leukocytes Auto (Bld) [Pure # fraction] 1.5 E9/L Normal 1.0-4.0 [facility] Comment on above: Order Comment: Order Added by Quinton Expert. Performed By: #### 2 965726, 8404865, 1274868, 0638664, 5776956, 49967544 ####[address] [address] Monocytes/100 WBC (Bld) 7.4 % Normal 4.0-14.0 [facility] Comment on above: Order Comment: Order Added by Quinton Expert. Performed By: #### 2 700538, 8452617, 4987853, 2545188, 9656775, 86268193 ####[address] [place] [address] Monocytes/Leukocytes Auto (Bld) [Pure # fraction] 0.7 E9/L Normal 0.2-1.0 [facility] Comment on above: Order Comment: Order Added by Discern Expert. Performed By: #### 2 658613, 3142543, 7845438, 1549403, 9158967, 59514216 ####[facility] [address] [place] [address] Neutrophils/100 WBC (Bld) 75.2 % High 36.0-75.0 [facility] Comment on above: Order Comment: Order Added by Discern Expert. Performed By: #### 2 564301, 6310854, 2594576, 0493022, 6196442, 73437278 ####[facility] [address] [place] [address] Neutrophils/Leukocytes Auto (Bld) [Pure # fraction] 7.1 E9/L Normal 2.0-7.5 [facility] Comment on above: Order Comment: Order Added by Discern Expert. Performed By: #### 2 777671, 6544741, 8547632, 0931190, 0567710, 65387290 ####[facility] [address] [place] [address] BMP 09-25-2023 Creatinine [Mass/Vol] 0.9 mg/dL Normal 0.5-1.3 [facility] Comment on above: Performed By: #### 2 690220, 7673926, 0823278, 7535110, 2855318, 81456332 ####[facility] [address] [place] [address] Urea nitrogen [Mass/Vol] 20 mg/dL Normal 5-21 [facility] Comment on above: Performed By: #### 2 289264, 7147355, 5959317, 6252554, 8636804, 99039284 ####[facility] [address] [place] [address] Urea nitrogen/Creatinine [Mass ratio] 22 No Units High 10-20 [facility] Comment on above: Performed By: #### 2 465269, 0835607, 5488302, 2560558, 2310008, 45905912 ####[facility] [address] [place] [address] Anion gap [Moles/Vol] 10 mmol/L Normal 6-16 [facility] Comment on above: Performed By: #### 2 505195, 3076542, 7658120, 6616942, 3531323, 69970516 ####[facility] [address] [place] [address] Calcium [Mass/Vol] 10.4 mg/dL Normal 8.9-11.1 [facility] Comment on above: Performed By: #### 2 405119, 4579842, 2340548, 3706987, 8953011, 08491333 ####[facility] [address] [place] [address] Chloride [Moles/Vol] 101 mmol/L Normal 101-111 [facility] Comment on above: Performed By: #### 2 072209, 8722655, 3394291, 9256479, 7180178, 46087866 ####[facility] [address] [place] [address] CO2 [Moles/Vol] 27 mmol/L Normal 21-31 [facility] Comment on above: Performed By: #### 2 747584, 3522127, 6694169, 9762226, 6989603, 58403901 ####[facility] [address] [place] [address] Glucose [Mass/Vol] 155 mg/dL Normal 55-199 [facility] Comment on above: Result Comment: If t his glucose result represents a fasting glucose, interpretation should refer to the following reference range: 55-99 mg/dL Performed By: #### 2 205269, 2497983, 2340735, 4894055, 6864307, 80416510 ####[facility] [address] [place] [address] Potassium [Moles/Vol] 4.0 mmol/L Normal 3.5-5.3 [facility] Comment on above: Performed By: #### 2 760232, 1337570, 1394974, 0328580, 0566814, 62195523 ####[facility] [address] [place] [address] Sodium [Moles/Vol] 134 mmol/L Low 135-145 [facility] Comment on above: Performed By: #### 2 446268, 8026790, 6884929, 3425752, 6019211, 67223586 ####[place] [address] [place] [address] CBC w/ Auto Diffon 3 Erythrocyte distribution width (RBC) [Ratio] 15.3 % High 10.9-14.2 [facility] Comment on above: Performed By: #### 2 172065, 0691205, 3116052, 6011344, 5689173, 95404588 ####[address] [address] Hematocrit (Bld) [Volume fraction] 38.4 % Normal 34.0-46.0 [facility] Comment on above: Performed By: #### 2 117686, 5588058, 4282437, 7374027, 5538471, 04767742 ####[address] [address] Hemoglobin (Bld) [Mass/Vol] 13.0 g/dL Normal 12.0-16.0 [facility] Comment on above: Performed By: #### 2 244079, 7353670, 3634389, 0691244, 8945613, 74512013 ####[address] [address] MCH (RBC) [Entitic mass] 29.4 pg Normal 27.0-34.0 [facility] Comment on above: Performed By: #### 2 660517, 0423376, 5722101, 0728604, 5873532, 49442531 ####[address] [place] [address] MCHC (RBC) [Mass/Vol] 33.9 g/dL Normal 31.4-36.0 [facility] Comment on above: Performed By: #### 2 078486, 4556814, 8932727, 8937234, 3334751, 44968004 ####[facility] [address] [place] [address] MCV (RBC) [Entitic vol] 86.6 fL Normal 80.0-100.0 [facility] Comment on above: Performed By: #### 2 830296, 5854970, 2966659, 8631322, 6578590, 65490429 ####[address] [address] Platelet mean volume (Bld) [Entitic vol] 9.5 fL Normal 6.4-10.8 [facility] Comment on above: Performed By: #### 2 537920, 6015477, 8653600, 9856809, 3651945, 65201404 ####[address] [address] Platelets (Bld) [#/Vol] 207.0 E9/L Normal 150.0-500.0 [facility] Comment on above: Performed By: #### 2 698701, 7211468, 5510609, 2999530, 1906700, 54710807 ####[address] [address] RBC (Bld) [#/Vol] 4.4 E12/L Normal 4.3-5.9 [facility] Comment on above: Performed By: #### 2 247671, 0756816, 5117625, 9905912, 6976929, 83003365 ####[address] [address] WBC corrected for nucl RBC Auto (Bld) [#/Vol] 9.5 E9/L Normal 4.0-11.0 [facility] Comment on above: Performed By: #### 2 486139, 6299834, 2729269, 6028877, 9379586, 01170406 ####[address] [place] [address] CHEMISTRYOrdered By: SYSTEM SYSTEM on 09-25-2023 Albumin [...] 74 mL/min/1.73 m2 Normal >=59mL/min/1 .73 m2 [facility] Chem S Comment on above: Interpretive Data: C hronic kidney disease could be indicated at eGFR's of less than 60 mL/min/1.73m2. Kidney failure is indicated at less than 15 mL/min/1.73m2. Globulin (S) [Mass/Vol] 4.0 g/dL Normal 1.4 - 4.0 gm/dL [facility] Remisol Glucose [Mass/Vol] 155 mg/dL Normal 55 - 199 mg/dL [facility] Remisol Comment on above: Interpretive Data: I f this glucose result represents a fasting glucose, interpretation should refer to the following reference range: 55-99 mg/dL Lipase [Catalytic activity/Vol] 39 U/L Normal 13 - 58 unit/L [facility] Remisol Potassium [Moles/Vol] 4.0 mmol/L Normal 3.5 - 5.3 mmol/L FT Remisol Protein [Mass/Vol] 7.9 g/dL High 6.0 - 7.8 gm/dL FT Remisol Sodium [Moles/Vol] 134 mmol/L Low 135 - 145 mmol/L [facility] Remisol Urea nitrogen [Mass/Vol] 20 mg/dL Normal 5 - 21 mg/dL [facility] Remisol Urea nitrogen/Creatinine [Mass ratio] 22 mg/mg High 10 - 20 [facility] Remisol Consent for Treatmenton 09-01 Consent for Treatment [id number]#1 .00TIFF Normal [facility] ED Clinical Summaryon 2022 ED Clinical Summary [place] [id number] ED Clinical Summary Person Information Name: ALIYA MOORE [facility] Age: 57 Years : 1965 Sex: Female Language: Czech PCP: BREA JJ CNP Marital Status: Visit [...] 09/25/2023 21:57:44 09/25/2023 21:57:44 09/25/2023 21:57:44 ADDRESS: [address] [place] [address] [address] [facility] [id number] PHYS DOC NOTES: MEDICAL INFORMATION: Prescriptions Given: [facility], [address] [place], [place] [id number], [phone] dicyclomine (Bentyl 10 mg Cap) 1 Capsules [...] day. fluticasone nasal (fluticasone Nasal 0.05 mg/inh [place]) 2 Sprays Nasal Inhalation every day. each [...] Mouth every day. potassium chloride (Potassium Chloride (Wpm-Nrhv-Fyt 10) 10 mEq oral tablet, extended release) pramipexole (pramipexole 0.5 mg oral tablet) 1 Tablets By Mouth 3 times a day. theophylline (theophylline 300 mg ER Tab) 1 Tablets By Mouth every 12 hours. trazodone (traZODONE 50 mg Tab) 1 Tablets By Mouth once a day (at bedtime). PATIENT EDUCATION INFORMATION: Instructions: Cholelithiasis Follow up: With: Address: When: [facility] [address] [place] [address] 3, [address] Floor, [address] [place] [phone] Business (1) In 3 days 09/28/2023 With: Address: When: BREA JJ [address] [place], [place] [phone] Business (1) In 3 days DIAGNOSIS: AP (abdominal pain); Cholelithiasis; N&V (nausea and vomiting) Normal [facility] ED Note-Physicianon 09-25-20 ED Note-Physician Basic Information Time Seen: Moses [...] and Complexity of Problems Differential Diagnosis: [] [facility] Data External documents reviewed: N/A My [...] # 28 cap(s), Refills(s) 0, Pharmacy: [facility], 175, cm, 09/25/23 18:25:00 EST, Height/Length [...] q8hr, # 12 tab(s), Refills(s) 0, Pharmacy: [facility], 175, cm, 09/25/23 18:25:00 EST, Height/Length [...] Clinic In 3 days 09/28/2023 EST [address] [facility] 3, 2nd Floor, [address] [place] [phone] Business (1) Additional Instructions: BREA JJ In 3 days [address] [place] [address] [phone] Business (1) Additional Instructions: Patient Education Cholelithiasis Problem List/Past Medical History Ongoing Smoker Historical No qualifying data Procedure/Surgical History delivery (05/05/1987), delivery (06/20/1984), Cyst, Knee. Medications Inpatient morphine 4 mg/mL Inj, 4 mg= 1 mL, IV Push, Once Zofran 4 mg/2 mL Injection, 4 mg= 2 mL, IV Push, Once Home albuterol- (more content not included)... Normal [facility] Comment on above: Result Comment: Elec [...] to break (more content not included)... Normal [facility] ED Patient Summaryon 023 ED Patient Summary [place] [id number] Patient Discharge Instructions Person Information Name: ALIYA MOORE Age: 57 Years Arrival Date: 09/25/2023 18:09:44 Discharge Diagnosis: AP (abdominal pain); Cholelithiasis; N&V (nausea and vomiting) Primary Care Physician: BREA JJ CNP Provider Information Primary Provider: Moses Fischer DO [employer] Estimator:None The exam and treatment you received in the Emergency Department were for an urgent problem and are not intended as complete care. It is important that you follow up with a doctor, nurse practitioner, or physician?s embroidery assistant for ongoing care. If your symptoms become worse or you do not improve as expected and you are unable to reach your usual health care provider, you should return to the Emergency Department. We are available 24 hours a day. ALIYA MOORE has been given the following list of patient education materials, prescriptions and follow-up instructions: Follow-up Instructions: With: Address: [facility], [address] [place] [phone] Business (1) In 3 days 09/28/2023 With: Address: When: BREA JJ [address] [place] [place] [phone] Business (1) In 3 days In the event that this physician does not participate in your insurance network, please consult with your insurance company to find a nearby participating provider. Patient Education Materials: Cholelithiasis A MESSAGE TO ALL PATIENTS REGARDING OPIOIDS PRESCRIPTION OPIOIDS: WHAT YOU NEED TO KNOW Prescription opioids can be used to help relieve mzgoppzb-sr-fvfyfl pain and are often prescribed following a [...] and overdos (more content not included)... Normal [facility] HEMATOLOGYOrdered By: SYSTEM SYSTEM on 09-25-2023 Basophils/100 WBC (Bld) 0.6 % Normal 0.0 - 2.0 % FT HemeAutoSS Basophils/Leukocytes Auto (Bld) [Pure # fraction] [...] 09-25-2023 Albumin [Mass/Vol] 3.9 g/dL Normal 3.3-5.0 [facility] Comment on above: Performed By: #### 2 515023, 7242640, 3097372, 9780927, 5034747, 25189868 ####[facility] [address] [place] [address] Albumin/Globulin (S) [Mass conc ratio] 1.0 Low 1.1-2.2 [facility] Comment on above: Performed By: #### 2 874051, 7897645, 0895172, 3566373, 4417625, 30739707 ####[address] [address] ALP [Catalytic activity/Vol] 66 Int._Unit/L Normal 21-98 [facility] Comment on above: Performed By: #### 2 814251, 7988582, 5143924, 4839860, 6568509, 58919849 ####[address] [address] ALT No additional P-5'-P [Catalytic activity/Vol] 25 Int._Unit/L Normal 6-46 [facility] Comment on above: Performed By: #### 2 550986, 9854759, 7339113, 6129893, 9766194, 92736516 ####[address] [address] AST [Catalytic activity/Vol] 25 Int._Unit/L Normal 5-43 [facility] Comment on above: Performed By: #### 2 180385, 8717786, 4398551, 9467985, 5687685, 49142514 ####[facility] [address] [place] [address] Bilirubin [Mass/Vol] 0.2 mg/dL Normal 0.0-1.1 [facility] [facility] Comment on above: Performed By: #### 2 484397, 8085505, 4326460, 4003352, 6217597, 96560243 ####[facility] [address] [place] [address] Bilirubin.direct [Mass/Vol] 0.1 mg/dL Normal 0.1-0.4 [facility] Comment on above: Performed By: #### 2 836962, 2671245, 8344189, 9309018, 5317748, 48417100 ####[facility] [address] [place] [address] Bilirubin.indirect [Mass or moles/Vol] 0.1 mg/dL Normal 0.1-0.9 [facility] Comment on above: Performed By: #### 2 615806, 9326394, 6871539, 5573951, 4163191, 59084673 ####[address] [place] [address] Globulin (S) [Mass/Vol] 4.0 g/dL Normal 1.4-4.0 [facility] Comment on above: Performed By: #### 2 125326, 7890922, 4536876, 5564131, 4967870, 44398523 ####[address] [address] Protein [Mass/Vol] 7.9 g/dL High 6.0-7.8 [facility] Comment on above: Performed By: #### 2 473537, 6552058, 1340689, 7483622, 7853912, 67816874 ####[address] [place] [address] Lipase Levelon 09-25-2023 Lipase [Catalytic activity/Vol] 39 U/L Normal 13-58 [facility] Comment on above: Performed By: #### 2 527749, 1001999, 7772392, 2819138, 6498887, 08692775 ####[address] [place] [address] RAD - Preliminary Cat Scan R eporton 09-25-2023 RAD - Preliminary Cat Scan Report [id number]# 1.00TIFF Normal [facility] URINALYSISOrdered By: Tanya Nathan on 09-25-2023 Bilirubin [...] PM) Normal Negative [facility] UA Auto SS [place].plasma/[place] .RBC (Bld) [Mass ratio] 0-3 /HPF Normal [...] [facility] UA Auto SS Urobilinogen Qn (U) 0.0416716 {Nayla'U}/dL Normal 0.0 - 1.0 EU/dL [facility] UA Auto SS WBC Auto Ql (U) Negative (09/25/23 9:53 PM) Normal Negative [facility] UA Auto SS WBC LM.HPF (Urine sed) [#/Area] 0-5 /HPF Normal 0-5/HPF [facility] UA Auto SS eGFRon 09-25-2023 GFR/1.73 sq M.predicted among non-blacks MDRD (S/P/Bld) [Vol rate/Area] 74 mL/min/1.73 m2 Normal >=59 [facility] Comment on above: Order Comment: Order added by Discern Expert. Result Comment: Monorail Car Operator nita kidney disease could be indicated at eGFR's of less than 60 mL/min/1.73m2. Kidney failure is indicated at less than 15 mL/min/1.73m2. Performed By: #### 2 906772, 3048945, 8433716, 6232260, 4455068, 24659823 ####[facility] [address] [place] [address] 36on 09-08-2023 36 Approving, but needs appt for additional refills. Normal [facility] Auto Diffon 09-08-2023 Basophils/100 WBC (Bld) 0.2 % Normal 0.0-2.0 [facility] Comment on above: Order Comment: Order Added by Discern Expert. Performed By: #### 2 791734, 6169527, 8868896, 75698092, 7943777, 05412176, 29726843, 17067328 ####[facility] [address] [place] [address] Basophils/Leukocytes Auto (Bld) [Pure # fraction] 0.0 E9/L Normal 0.0-0.2 [facility] Comment on above: Order Comment: Order Added by Discern Expert. Performed By: #### 2 390102, 0616019, 9681712, 31305905, 2214438, 81276070, 39687740, 18116762 ####[facility] [address] [place] [address] Eosinophils/100 WBC (Bld) 0.8 % Normal 0.0-8.0 [facility] Comment on above: Order Comment: Order Added by Discern Expert. Performed By: #### 2 493095, 5089476, 7629044, 94673078, 3147492, 03673297, 67208366, 93658532 ####[facility] [address] [place] [address] Eosinophils/Leukocytes Auto (Bld) [Pure # fraction] 0.1 E9/L Normal 0.0-0.5 [facility] Comment on above: Order Comment: Order Added by Quinton Expert. Performed By: #### 2 537088, 9662988, 1943147, 14819819, 3563813, 23411423, 26961957, 06408184 ####[facility] [address] [place] [address] Lymphocytes/100 WBC (Bld) 11.3 % Low 14.0-50.0 [facility] Comment on above: Order Comment: Order Added by Discern Expert. Performed By: #### 2 576787, 7298892, 8476249, 85297969, 9617570, 12111507, 32871966, 85699818 ####[address] [address] Lymphocytes/Leukocytes Auto (Bld) [Pure # fraction] 1.0 E9/L Normal 1.0-4.0 [facility] Comment on above: Order Comment: Order Added by Quinton Expert. Performed By: #### 2 050272, 2270813, 2382556, 82405103, 7271061, 15143721, 20956866, 36288207 ####[address] [address] Monocytes/100 WBC (Bld) 6.9 % Normal 4.0-14.0 [facility] Comment on above: Order Comment: Order Added by Quinton Expert. Performed By: #### 2 639457, 8353790, 5843890, 23088559, 3946368, 64103808, 19096091, 54429995 ####[address] [place] [address] Monocytes/Leukocytes Auto (Bld) [Pure # fraction] 0.6 E9/L Normal 0.2-1.0 [facility] Comment on above: Order Comment: Order Added by Quinton Expert. Performed By: #### 2 615670, 0480264, 4105198, 43406367, 9797526, 21230369, 26433163, 93179669 ####[facility] [address] [place] [address] [place] [address] Neutrophils/100 WBC (Bld) 80.8 % High 36.0-75.0 [facility] Comment on above: Order Comment: Order Added by Discern Expert. Performed By: #### 2 789320, 5926606, 9128724, 04579924, 2746673, 26049034, 87584276, 15373352 ####[facility] [address] [place] [address] Neutrophils/Leukocytes Auto (Bld) [Pure # fraction] 7.1 E9/L Normal 2.0-7.5 [facility] Comment on above: Order Comment: Order Added by Discern Expert. Performed By: #### 2 862868, 5160036, 0405033, 03602864, 2139213, 20933904, 92033812, 15058690 ####[facility] [address] [place] [address] BMP 09-08-2023 Creatinine [Mass/Vol] 1.2 mg/dL Normal 0.5-1.3 [facility] Comment on above: Performed By: #### 2 494380, 2911683, 5422792, 19810784, 5823910, 67022815, 03774737, 76915150 ####[facility] [address] [place] [address] Urea nitrogen [Mass/Vol] 26 mg/dL High 5-21 [facility] Comment on above: Performed By: #### 2 535966, 7803251, 2516659, 53369700, 1801707, 11571711, 21318748, 76962577 ####[facility] [address] [place] [address] Urea nitrogen/Creatinine [Mass ratio] 22 No Units High 10-20 [facility] Comment on above: Performed By: #### 2 962039, 7575794, 6525092, 39984863, 5568999, 96206411, 03311431, 49498767 ####[facility] [address] [place] [address] Anion gap [Moles/Vol] 13 mmol/L Normal 6-16 [facility] Comment on above: Performed By: #### 2 509336, 2477737, 2304134, 59045727, 4704909, 38640210, 55500608, 10945704 ####[facility] [address] [place] [address] Calcium [Mass/Vol] 9.9 mg/dL Normal 8.9-11.1 [facility] Comment on above: Performed By: #### 2 506979, 3828624, 7764387, 38525643, 8517665, 50794368, 08184632, 68448629 ####[facility] [address] [place] [address] Chloride [Moles/Vol] 99 mmol/L Low 101-111 [facility] Comment on above: Performed By: #### 2 916116, 8398316, 1711847, 79664198, 8330862, 65746716, 39791894, 41958036 ####[facility] [address] [place] [address] CO2 [Moles/Vol] 28 mmol/L Normal 21-31 [facility] Comment on above: Performed By: #### 2 632690, 3912047, 0574636, 17329177, 1711231, 99473374, 64695405, 79192621 ####[facility] [address] [place] [address] Glucose [Mass/Vol] 126 mg/dL Normal 55-199 [facility] Comment on above: Result Comment: If t his glucose result represents a fasting glucose, interpretation should refer to the following reference range: 55-99 mg/dL Performed By: #### 2 140290, 1845876, 0487969, 54521116, 7274774, 46873700, 65300312, 56278462 ####[facility] [address] [place] [address] Potassium [Moles/Vol] 4.0 mmol/L Normal 3.5-5.3 [facility] Comment on above: Performed By: #### 2 486737, 9733610, 1422578, 80787107, 0204678, 49183195, 76031679, 12867176 ####[facility] [address] [place] [address] Sodium [Moles/Vol] 136 mmol/L Normal 135-145 [facility] Comment on above: Performed By: #### 2 348904, 7154617, 9951987, 97873303, 1896901, 68378890, 58657361, 98393108 ####[facility] [address] [place] [address] BNPon 09-08-2023 Int Ctr BNP Pass Normal [facility] Comment on above: Performed By: #### 2 410218, 4579224, 9319716, 44868502, 0570337, 39205475, 81274697, 41120644 ####[address] [place] [address] Natriuretic peptide B (Bld) [Mass/Vol] 21 pg/mL Normal 5-80 [facility] Comment on above: Performed By: #### 2 429235, 9700863, 2357430, 94427544, 3300493, 24822589, 58845648, 26237413 ####[address] [place] [address] CBC w/ Auto Diffon 3 Erythrocyte distribution width (RBC) [Ratio] 15.1 % High 10.9-14.2 [facility] Comment on above: Performed By: #### 2 117241, 5274805, 5334078, 37024726, 8614980, 88125148, 95641647, 01318026 ####[facility] [address] [place] [address] Hematocrit (Bld) [Volume fraction] 38.8 % Normal 34.0-46.0 [facility] Comment on above: Performed By: #### 2 531788, 7107237, 9905097, 11289518, 9945262, 94756235, 94755343, 48586099 ####[address] [place] [address] Hemoglobin (Bld) [Mass/Vol] 13.0 g/dL Normal 12.0-16.0 [facility] Comment on above: Performed By: #### 2 161199, 4647589, 1525912, 04975455, 6136652, 41099180, 84136458, 33549727 ####[address] [address] MCH (RBC) [Entitic mass] 29.4 pg Normal 27.0-34.0 [facility] Comment on above: Performed By: #### 2 904226, 0240567, 8698349, 94013832, 2540483, 26132082, 01215805, 00095874 ####[address] [address] MCHC (RBC) [Mass/Vol] 33.5 g/dL Normal 31.4-36.0 [facility] Comment on above: Performed By: #### 2 322655, 4680760, 3559136, 14245922, 9300484, 85648197, 91279997, 51845944 ####[address] [address] MCV (RBC) [Entitic vol] 87.6 fL Normal 80.0-100.0 [facility] Comment on above: Performed By: #### 2 770757, 8615503, 9657747, 29959049, 1268697, 00944936, 39124383, 95949218 ####[address] [address] Platelet mean volume (Bld) [Entitic vol] 10.7 fL Normal 6.4-10.8 [facility] Comment on above: Performed By: #### 2 339766, 6309071, 3768638, 64207255, 5678068, 07619929, 27745030, 74535318 ####[facility] [address] [place] [address] Platelets (Bld) [#/Vol] 195.0 E9/L Normal 150.0-500.0 [facility] Comment on above: Performed By: #### 2 156478, 2944059, 9513763, 29046445, 6229329, 77339290, 36725504, 75585122 ####[facility] [address] [place] [address] RBC (Bld) [#/Vol] 4.4 E12/L Normal 4.3-5.9 [facility] Comment on above: Performed By: #### 2 919816, 8826710, 2855332, 40132328, 2991206, 82197031, 21299365, 74029632 ####[facility] [address] [place] [address] WBC corrected for nucl RBC Auto (Bld) [#/Vol] 8.8 E9/L Normal 4.0-11.0 [facility] Comment on above: Performed By: #### 2 297515, 7057187, 9441267, 27146796, 9806172, 60218977, 18993111, 42481552 ####[facility] [address] [place] [address] CHEMISTRYOrdered By: SYSTEM SYSTEM on 09-08-2023 Troponin [...] Instructions For Use, Claude Raulito, May 2018) Albumin [Mass/Vol] 3.8 g/dL Normal [...] 52 mL/min/1.73 m2 Low >=59mL/min/1 .73 m2 [facility] Chem S Comment on above: Interpretive Data: [...] - 5.3 mmol/L FT [facility] Protein [Mass/Vol] 8.3 g/dL High 6.0 - 7.8 gm/dL [facility] Remisol Sodium [Moles/Vol] 136 mmol/L Normal 135 - 145 mmol/L [facility] Troponin I.cardiac [Mass/Vol] 4.70 pg/mL Low 10.10 - 27.10 pg/mL [facility] Remisol Comment on above: Interpretive Data: T he 95% CI (Confidence Interval) PPV (Positive Predictive Value) for myocardial infarction in females is 38 pg/mL, in males 51 pg/mL. The results should be used in conjunction with clinical conditions of myocardial infarction. (Access High Sensitivity Troponin I Instructions For Use, Claude [employer], May 2018) Urea nitrogen [Mass/Vol] 26 mg/dL High 5 - 21 mg/dL [facility] Urea nitrogen/Creatinine [Mass ratio] 22 mg/mg High 10 - 20 [facility] CHEMISTRYOrdered By: Yanet Davis on 09-08-2023 Natriuretic peptide B (Bld) [Mass/Vol] 21 pg/mL Normal 5 - 80 pg/mL [facility] HemeManSS COAGULATIONOrdered By: Dov Patel on 09-08-2023 aPTT Coag (PPP) [Time] 37.3 s High 25.1 - 36.5 second(s) [facility] Auto Coag Comment on above: Interpretive Data: P arameter 15 days - 4 weeks 1 - [...] the same coagulation reagent and instrumentation as [facility]. Currently there are no coagulation studies available worldwide for children to 14 days, and no normal ranges. Heparin therapeutic range (represented by Anti-Factor Xa activity of 0.2 - 0.4 U/mL) corresponds to PTT of 56.6 - 109.0 sec. INR Coag (PPP) [Relative time] 1.2 {INR} Invalid Interpretation Code [facility] Auto Coag Comment on above: Interpretive Data: I NR results are specifically intended to assess patients stabilized on long-term Anticoagulation therapy suggested INR s Less Intensive Anticoagulation 2.0 3.0 Conventional Range 3.0 4.5 PT Coag (PPP) [Time] 13.7 s High 9.4 - 1 2.5 second(s) [facility] Auto Coag Comment on above: Interpretive Data: [...] the same coagulation reagent and instrumentation as [facility]. Currently there are no coagulation studies available [...] 370 Contrast amount in ml's: 68 Normal [facility] Consent for Treatmenton Consent for Treatment [id number]# 1.00TIFF Normal [facility] Discharge Instructionson Discharge Instructions [id number]# 1.00TIFF Normal [facility] ED Clinical Summaryon 2022 ED Clinical Summary [place] [id number] ED Clinical Summary Person Information Name: ALIYA MOORE [place] Age: 57 Years : 1965 Sex: Female Language: Czech PCP: BREA JJ CNP Marital Status: Visit [...] 09/08/2023 20:29:11 09/08/2023 20:29:11 09/08/2023 20:29:11 ADDRESS: [address] [place] [address] [address] [facility] [id number] [facility] DOC NOTES: MEDICAL INFORMATION: Prescriptions Given: Medications [...] day. fluticasone nasal (fluticasone Nasal 0.05 mg/inh [place]) 2 Sprays Nasal Inhalation every day. each [...] Mouth every day. potassium chloride (Potassium Chloride (Ipb-Eqja-Ajc 10) 10 mEq oral tablet, extended release) [...] With: Address: When: BREA JJ [address] [place], [place] [phone] Business (1) In 3 days DIAGNOSIS: Acute chest pain Normal [facility] ED Note-Physicianon 09-08-20 ED Note-Physician Patient was [...] precautions. Patient was discharged stable condition. Normal [facility] Comment on above: Result Comment: Elec [...] History O (more content not included)... Normal [facility] Comment on above: Result Comment: Elec [...] these instructions at home: Medicines ? Take khgr-gdv-hpshmrn and prescription medicines only as told by [...] told by your (more content not included)... [facility] ED Patient Summaryon 023 ED Patient Summary [address] [address] Patient Discharge Instructions Person Information Name: ALIYA MOORE Age: 57 Years Arrival Date: 09/08/2023 16:32:21 Discharge Diagnosis: Acute chest pain Primary Care Physician: BREA JJ CNP Provider Information Primary Provider: Ramses Hair DO Advanced Senior Construction Estimator:None The exam and treatment you received in the Emergency Department were for an urgent problem and are not intended as complete care. It is important that you follow up with a doctor, nurse practitioner, or physician?s embroidery assistant for ongoing care. If your symptoms become worse or you do not improve as expected and you are unable to reach your usual health care provider, you should return to the Emergency Department. We are available 24 hours a day. ALIYA MOORE has been given the following list of patient education materials, prescriptions and follow-up instructions: Follow-up Instructions: With: Address: When: BREA JJ [address] [place], [place] [phone] Business (1) In 3 days In the event that this physician does not participate in your insurance network, please consult with your insurance company to find a nearby participating provider. Patient Education Materials: Nonspecific Chest Pain, Adult A MESSAGE TO ALL PATIENTS REGARDING OPIOIDS PRESCRIPTION OPIOIDS: WHAT YOU NEED TO KNOW Prescription opioids can be used to help relieve fspylfuq-gd-pknqil pain and are often prescribed following a [...] be struggling with addiction, tell your health manager intensive care unit and ask for guidance or call [facility]?S National Helpline at 4-294-581-HELP. v Source: [place] (more content not included)... Normal [facility] EMS Documentationon 09-08-20 EMS Documentation Please click on link to see report Normal [facility] Comment on above: Result Comment: Miss duncan [...] 13.0 g/dL Normal 12.0 - 16.0 gm/dL FT HemeAutoSS MCH (RBC) [Entitic mass] 29.4 pg Normal 27.0 - 34.0 pg [facility] HemeAutoSS MCHC (RBC) [Mass/Vol] 33.5 g/dL Normal 31.4 - 36.0 gm/dL FT HemeAutoSS MCV (RBC) [Entitic vol] 87.6 fL Normal 80.0 - 100.0 fL [facility] HemeAutoSS Platelet mean volume (Bld) [Entitic vol] 10.7 fL Normal 6.4 - 10.8 fL FT HemeAutoSS Platelets (Bld) [#/Vol] 195.0 E9/L Normal 150.0 - 500.0 E9/L [facility] HemeAutoSS RBC (Bld) [#/Vol] 4.4 E12/L Normal 4.3 - 5.9 E12/L FT HemeAutoSS WBC corrected for nucl RBC Auto (Bld) [#/Vol] 8.8 E9/L Normal 4.0 - 11.0 E9/L FT HemeAutoSS Hep Func Panelon 09-08-2023 Bilirubin.indirect [Mass or moles/Vol] UTC Abnormal 0.1-0.9 [facility] Comment on above: Result Comment: Resu lt verified by Discern Rule. Performed result UTC (Unable to Calculate) was sent as an Alpha code due the inability to calculate a valid numeric value. Performed By: #### 2 387541, 1143524, 4821967, 35244748, 7472780, 10835569, 19739557, 60339533 ####[facility] [address] [place] [address] Albumin [Mass/Vol] 3.8 g/dL Normal 3.3-5.0 [facility] Comment on above: Performed By: #### 2 992932, 5971165, 3708885, 17257035, 4182421, 60908280, 33252461, 74312965 ####[facility] [address] [place] [address] Albumin/Globulin (S) [Mass conc ratio] 0.8 Low 1.1-2.2 [facility] Comment on above: Performed By: #### 2 031583, 8538954, 8465780, 85299414, 0393906, 81310964, 65407853, 85681314 ####[address] [place] [address] ALP [Catalytic activity/Vol] 68 Int._Unit/L Normal 21-98 [facility] Comment on above: Performed By: #### 2 186779, 5130558, 0953159, 58688487, 5775015, 37796924, 22313009, 44344764 ####[address] [address] ALT No additional P-5'-P [Catalytic activity/Vol] 18 Int._Unit/L Normal 6-46 [facility] Comment on above: Performed By: #### 2 284071, 6643000, 7250247, 13403914, 1677966, 57964287, 06363457, 67279197 ####[address] [address] AST [Catalytic activity/Vol] 20 Int._Unit/L Normal 5-43 [facility] Comment on above: Performed By: #### 2 950663, 0722314, 2128833, 41394617, 4826676, 11230028, 60526114, 76659282 ####[address] [address] Bilirubin [Mass/Vol] 0.4 mg/dL Normal 0.0-1.1 [facility] Comment on above: Performed By: #### 2 208919, 5387379, 9176206, 68684775, 9946997, 63354932, 13296022, 69715636 ####[address] [address] Globulin (S) [Mass/Vol] 4.5 g/dL High 1.4-4.0 [facility] Comment on above: Performed By: #### 2 504462, 2006513, 3079773, 56851335, 0143804, 75447323, 51679881, 83885712 ####[facility] [address] [place] [address] Protein [Mass/Vol] 8.3 g/dL High 6.0-7.8 [facility] Comment on above: Performed By: #### 2 934314, 3207575, 8738329, 24664844, 3141377, 58625099, 35970676, 99266045 ####[facility] [address] [place] [address] Bilirubin.direct [Mass/Vol] mg/dL Normal 0.1-0.4 [facility] Comment on above: Performed By: #### 2 413570, 6499137, 3950633, 40873649, 0851342, 71889154, 58967572, 41400717 ####[facility] [address] [place] [address] Monitor Recordon 09-08-2023 Monitor Record [id number]# 1.00TIFF Normal [facility] Monitor Record [id number]# 1.00TIFF Normal [facility] PT & PTTon 09-08-2023 aPTT Coag (PPP) [Time] 37.3 second(s) High 25.1-36.5 [facility] Comment on above: Result Comment: Para meter [...] the same coagulation reagent and instrumentation as [facility]. Currently there are no coagulation studies available worldwide for children to 14 days, and no normal ranges. Heparin therapeutic range (represented by Anti-Factor Xa activity of 0.2 - 0.4 U/mL) corresponds to PTT of 56.6 - 109.0 sec. Performed By: #### 2 203713, 1376617, 6999476, 12676774, 3086104, 90372807, 86219054, 76903458 ####[facility] [address] [place] [address] INR Coag (PPP) [Relative time] 1.2 {INR} Invalid Interpretation Code [facility] Comment on above: Result Comment: INR results are specifically intended to assess patients stabilized on long-term Anticoagulation therapy suggested INR?s ?Less Intensive Anticoagulation? 2.0 ? 3.0 Conventional Range 3.0 ? 4.5 Performed By: #### 2 579413, 8078620, 6832157, 53955065, 9825596, 31045926, 04045464, 55280850 ####[facility] [address] [place] [address] PT Coag (PPP) [Time] 13.7 second(s) High 9.4-12.5 [facility] Comment on above: Result Comment: 15 d [...] the same coagulation reagent and instrumentation as [facility]. Currently there are no coagulation studies available worldwide for children to 14 days, and no normal ranges. Performed By: #### 2 785932, 2237223, 0184010, 97349893, 6519565, 92367788, 66782132, 96166712 ####[facility] [address] [place] [address] Troponin 0 Hr.on 09-08-2023 Troponin I.cardiac [Mass/Vol] 4.70 pg/mL Low 10.10-27.10 [facility] Comment on above: Result Comment: The 95% CI (Confidence Interval) PPV (Positive Predictive Value) for myocardial infarction in females is 38 pg/mL, in males 51 pg/mL. The results should be used in conjunction with clinical conditions of myocardial infarction. (Access High Sensitivity Troponin I Instructions For Use, [employer], May 2018) Performed By: #### 2 492259, 7062349, 0746640, 97852297, 4719744, 56834617, 60304724, 23779970 ####[facility] [address] [place] [address] Troponin 3 Hr.on 09-08-2023 Troponin I.cardiac [Mass/Vol] 4.20 pg/mL Low 10.10-27.10 [facility] Comment on above: Result Comment: The 95% CI (Confidence Interval) PPV (Positive Predictive Value) for myocardial infarction in females is 38 pg/mL, in males 51 pg/mL. The results should be used in conjunction with clinical conditions of myocardial infarction. (Access High Sensitivity Troponin I Instructions For Use, [employer], May 2018) Performed By: #### 1 1342678 ####[facility] [address] [place] [address] eGFRon 09-08-2023 GFR/1.73 sq M.predicted among non-blacks MDRD (S/P/Bld) [Vol rate/Area] 52 mL/min/1.73 m2 Low >=59 [facility] Comment on above: Order Comment: Order added by Discern Expert. Result Comment: Monorail Car Operator nita kidney disease could be indicated at eGFR's of less than 60 mL/min/1.73m2. Kidney failure is indicated at less than 15 mL/min/1.73m2. Performed By: #### 2 552160, 8888168, 6970181, 30950873, 4195072, 24632939, 43465053, 00163059 ####[facility] [address] [place] [address] Office Visiton 07-20-2023 Follow-up visit [id number] Aliya Moore 1965 F Date Provider Department Center 07/20/2023 Chey-MARLENE SOTO C[facility] Family History Problem Relation Age of Onset Coronary artery disease Other Pulmonary embolism Other Deep vein thrombosis Other Family Status - Relation Status Age at Other Level of Service:30882 MA OFFICE/OUTPATIENT ESTABLISHED LOW MDM 20-29 MIN Normal [facility] Consent for Treatmenton 07-01 Consent for Treatment [id number] .00CD:127 Normal [facility] Oncology Noteon 07-19-2023 Oncology Note Oncology Servicer Travel Trailers Office Visit/Treatment Note Current Patient Status/Reason: Pt [...] 6 months. Pt started in May. Normal [facility] Comment on above: Result Comment: Elec tronically Signed By: Tre CAZARES, Kristy\.br\Date and Time Signed: 07/19/23 11:12 EDT Oncology Progress Noteon Oncology Progress Note Patient: ALIYA MOORE Age: 57 years Sex: Female : 1965 Associated Diagnoses: None Author: Paulino BOOTHE, Roby Davis Chief Complaint She is here for results of the thrombophilia work up and decision about duration of anticoagulation for the acute PE diagnosed on 06/16/23. History of Present Illness Aliya was referred to our hematology office at [facility] for Thrombophilia work up and decision about duration of anticoagulation for the acute PE diagnosed on . She is a 57-year-old female cigarette smoker with history of hypertension, kvn-jeotlru-ifbyfywml diabetes mellitus, obesity, chronic hypoxic respiratory failure on 3 L home oxygen, and depression who presented on 06/16/23 to [facility] ER with complaints of right-sided chest pain [...] puff(s), Inhalation, BID fluticasone Nasal 0.05 mg/inh Meggett 2 spray(s), Nasal, Daily furosemide 20 mg Tab 20 mg = 1 tab(s), Oral, Daily gabapentin 300 mg Cap 300 mg = 1 cap(s), Oral, BID hydrochlorothiazide-l isinopril 25 mg-20 mg Tab 1 tab(s), Oral, Daily lamotrigine 25 mg Tab 25 mg = 1 tab(s), Oral, BID pioglitazone 15 mg Tab 15 mg = 1 tab(s), Oral, Daily Potassium Chloride (Ehy-Kgaw-Agv 10) 10 mEq oral tablet, extended release [...] list: All Problems Smoker / SNOMED CT 002238676 / Confirmed Added secondary to documentation in Social History. Histories Past Medical History: No active or resolved past medical history items have been selected or recorded. Family History: History is unknown. Procedure history: delivery (SNOMED CT 9424889355) on 05/05/1987 at 21 Years. delivery (SNOMED CT 6957202522) on 06/20/1984 at 18 Years. Cyst (SNOMED CT 0571376763). Comments: 06/28/2023 11:00 EDT - Lindsay Prisca A Removal of cyst of right foot. Knee (SNOMED CT 377699581). Comments: 06/28/2023 11:01 EDT - Prisca Montoya A surgery Social History Social & Psychosocial Habits Alcohol Comment: den - 06/16/2023 16:10 - Kezia Catalan Substance Abuse Comment: - 06/16/2023 16:10 - Aundrea (more content not included)... Normal [facility] .VIPER VENOM MIXING STUDYon 07-08-2023 dRVVT w 1:1 PNP Coag (PPP) [Time] 47.4 second(s) High 0.0-40.4 [facility] Comment on above: Result Comment: Perf ormed at: [facility] [address] [id number] MD Tony Laird Performed By: #### 1 72923960, 55305119, 6186152, 94273636, 71208119, 91740148, 41043518, 9681564, 2561649, 0273288, 73703001, 0681318 ####[facility] [address] [place] [address] MARY KATE ABS Ig G,M,Aon 3 Cardiolipin IgA IA Qn (S) <9 Invalid Interpretation Code 0-11 [facility] Comment on above: Result Comment: Nega tive: <12 Indeterminate: 12 - 20 Low-Med Positive: >20 - 80 High Positive: >80 Performed at: [facility] [address] [id number] PhD Matthew Funez Performed By: #### 1 12263277, 25661619, 4804335, 62010978, 64563154, 32874195, 03365818, 5235899, 4986457, 3713904, 28695648, 8111690 ####[facility] [address] [place] [address] Cardiolipin IgG IA Qn (S) <9 Invalid Interpretation Code 0-14 [facility] Comment on above: Result Comment: Nega tive: <15 Indeterminate: 15 - 20 Low-Med Positive: >20 - 80 High Positive: >80 Performed By: #### 1 06631471, 37779793, 2620873, 19207548, 92173002, 62716679, 95341322, 1413110, 8683768, 5230795, 33864828, 3971780 ####[facility] [address] [place] [address] Cardiolipin IgM IA Qn (S) <9 Invalid Interpretation Code 0-12 [facility] Comment on above: Result Comment: Nega tive: <13 Indeterminate: 13 - 20 Low-Med Positive: >20 - 80 High Positive: >80 Performed By: #### 1 17186122, 29357890, 3912093, 55617193, 38052628, 59104772, 06557850, 5637573, 2695710, 9729247, 28976545, 9539959 ####[facility] [address] [place] [address] Beta-2 Glycoprot.i Aon 07-08 Beta 2 glycoprotein 1 IgA Qn (S) 19 Invalid Interpretation Code 0-25 [facility] Comment on above: Result Comment: The reference interval reflects a 3SD or 99th percentile interval, which is thought to represent a potentially clinically significant result in accordance with the International Consensus Statement on the classification criteria for definitive antiphospholipid syndrome (APS). J Thromb Haem 2006;4:295-306. Performed By: #### 1 30231553, 32179357, 6139255, 28827338, 53984473, 88622940, 41749664, 6347549, 6194463, 1674866, 23711307, 0132717 ####[facility] [address] [place] [address] Beta 2 glycoprotein 1 IgG Qn (S) <9 Invalid Interpretation Code 0-20 [facility] Comment on above: Result Comment: The reference interval reflects a 3SD or 99th percentile interval, which is thought to represent a potentially clinically significant result in accordance with the International Consensus Statement on the classification criteria for definitive antiphospholipid syndrome (APS). J Thromb Haem 2006;4:295-306. Performed By: #### 1 56558626, 15781385, 8125289, 46969767, 11066763, 12979163, 81438637, 7216053, 2320626, 6880792, 96420995, 7920741 ####[facility] [address] [place] [address] Beta 2 glycoprotein 1 IgM Qn (S) <9 Invalid Interpretation Code 0-32 [facility] Comment on above: Result Comment: The reference interval reflects a 3SD or 99th percentile interval, which is thought to represent a potentially clinically significant result in accordance with the International Consensus Statement on the classification criteria for definitive antiphospholipid syndrome (APS). J Thromb Haem 2006;4:295-306. Performed at: [facility] [id number] MD Tony Laird Performed By: #### 1 60802786, 33714790, 5515301, 59522617, 16728797, 93660619, 70159122, 3631086, 8300597, 5424044, 10177774, 8470193 ####[facility] [address] [place] [address] Factor II, DNA Analysison F2 gene c.70890S>A [facility] ([facility]ld[facility]Tiss[facility] Comment Invalid Interpretation Code [facility] Comment on above: Result Comment: Resu lt: [...] the F2 gene and a c.1601G>A (p. Dua000Zym) variant in the F5 gene (commonly referred to as Factor V Leiden) have an approximately 20- fold increased risk for venous thromboembolism. Risks are likely to be even higher in more complex genotype combinations involving the F2 c.*97G>A variant and Factor V Leiden (PMID: 12341797). Additional risk factors include but are not [...] health care providers to discuss results at [phone] [place] Test Details: Variant analyzed: c.*97G>A, previously referred to as [id number] Methods/Limitations: DNA analysis of the F2 gene [...] developed and its performance characteristics determined by [employer]. It has not been cleared or approved by the Food and Drug Administration. References: Aries S, Enma AK, Mauricio R, Dre WW, Gabriel CASTILLO; A[employer]G Professional Practice and Guidelines Committee. Addendum: [employer] [employer] consensus statement on factor V Leiden mutation testing. [employer]. 2020Jan 02. doi: 10.1038/[id number]-f. PMID: 16662782. Yarely CROCKETT. Prothrombin Thrombophilia. 2005May 24 [Updated 2020Dec 04]. In: Allen MP, Tim HH, Renee RA, et al., editors. Aren(Marlyn) [Internet]. [place] ([place]): [facility]; 5233-2610. Available from: https://www.ncbi.nlm.nih.gov/books/BDM1267/ Real S, Enma AK, Remy X, Gerry B, Santi EB, Amparo P, Humberto CS; [facility] Photocopying Machine Operator Committee. Venous thromboembolism laboratory testing (factor V Leiden and factor II c.*97G>A), 2018 update: a technical standard of the [place] [employer] and [employer]omics (ACMG). Tasha Med. 2018 Sep;20(12):3881-0797. doi: 10.1038/[id number]-p. Epub 2017Aug 04. PMID: 11589298. Performed By: #### 1 67895700, 13125702, 5502095, 07334816, 34861040, 51896690, 94625550, 9714623, 5668349, 0809032, 63327640, 1637955 ####[facility] [address] [place] [address] Factor V Leidenon 07-08-2023 F5 gene p.Mkz509Zwe [facility] (Bld/Tiss) Comment Invalid Interpretation Code [facility] Comment on above: Result Comment: Resu lt: c.1601G>A (p.Ryd792Zva) - Not Detected This result is not associated with an increased risk for venous thromboembolism. See Additional Clinical Information and Comments. Additional Clinical Information: Venous thromboembolism is a multifactorial disease influenced by genetic, environmental, and circumstantial risk factors. The c.1601G>A (p. Szk226Epk) variant in the F5 gene, commonly referred [...] c.*97G>A variant and Factor V Leiden (PMID: 41875672). Additional risk factors include but are not [...] health care providers to discuss results at [phone] (6031). Test Details: Variant Analyzed: c.1601G>A (p. Jwp229Wqw), referred to as Factor V Leiden Methods/Limitations: [...] developed and its performance characteristics determined by [employer]. It has not been cleared or approved by the Food and Drug Administration. References: Aries S, Enma AK, Mauricio R, Dre WW, Gabriel JH; [employer]G Professional Practice and Guidelines Committee. Addendum: [place] [employer] consensus statement on factor V Leiden mutation testing. [employer] Med. 2020Jan 02. doi: 10.1038/[id number]-x. PMID: 48109523. Yarely CROCKETT. Factor V Leiden Thrombophilia. 1998March 13 (Updated 2017Nov 03). In: Allen MP, Tim HH, Renee RA, et al., editors. GeneReviews(Marlyn) (Internet). [place]): [facility]; 6974-2403. Available from: https://www.ncbi.nlm.nih.gov/books/MEW9017/ Real S, Enma AK, Jonel X, Gerry B, Santi EB, Amparo P, Humberto CS; [facility] Laboratory Photocopying Machine Operator Committee. Venous thromboembolism laboratory testing (factor V Leiden and factor II c.*97G>A), 2018 update: a technical standard of the [employer] [employer] and [employer] (ACMG). Tasha Med. 2018 Sep;20(12):1575-7150. doi: 10.1038/[id number]-v. Epub 2017Aug 04. PMID: 73991743. Performed By: #### 1 29866400, 24824457, 6489140, 17259918, 29186186, 64686958, 31316233, 7963266, 5934526, 8432331, 99074865, 9936819 ####[facility] [address] [place] [address] Lupus Anticoagon 07-08-2023 aPTT.lupus sensitive Coag (PPP) [Time] 33.8 second(s) Invalid Interpretation Code 0.0-43.5 [facility] Comment on above: Performed By: #### 1 52134090, 25211513, 1080957, 99044140, 81478396, 67554512, 97677066, 4894114, 5695196, 7810033, 90947787, 1465574 ####[facility] [address] [place] [address] dRVVT Coag (PPP) [Time] 57.5 second(s) High 0.0-47.0 [facility] Comment on above: Result Comment: Perf ormed at: [facility] [place] [address] [place] [address] [id number] MD Tony Laird Performed By: #### 1 22496336, 79930188, 9772467, 60986546, 78119482, 63290863, 07723319, 4539252, 4068474, 2243274, 94457728, 3313229 ####[facility] [address] [place] [address] Lupus anticoagulant two screening tests W Reflex Coag (PPP) [Interp] Comment: Invalid Interpretation Code [facility] Comment on above: Result Comment: No l upus anticoagulant was detected. These results are consistent with specific inhibitors to one or more common pathway factors (X, V, II or fibrinogen). Performed at: [address] [id number] MD Tony Laird Performed By: #### 1 48353034, 36151722, 9008742, 84221337, 23361506, 87632716, 36636011, 1302350, 8001010, 5488146, 52547247, 5762659 ####[facility] [address] [place] [address] dRVVT CONFIRMon 07-08-2023 dRVVT/dRVVT.excess phospholipid Coag (PPP) [Ratio] 1.0 ratio Invalid Interpretation Code 0.8-1.2 [facility] Comment on above: Result Comment: Perf ormed at: [address] [id number] MD Tony Laird Performed By: #### 1 58188632, 13976906, 1900736, 82390634, 30627725, 02009112, 83158403, 3860132, 5973390, 7420253, 11777510, 5951862 ####[facility] [address] [place] [address] Consenton 07-07-2023 Consent [id number] 0 [id number]# 1.00CD:127 Normal [facility] Lab Miscellaneous-LCon 07-01 Lab Miscellaneous COMMENT Invalid Interpretation Code [facility] Comment on above: Result Comment: Test Ordered: 552095 Protein S-Functional Protein S-Functional 98 % Reference Range: 63-140 Protein S activity may be falsely increased (masking an abnormal, low result) in patients receiving direct Xa inhibitor (e.g., rivaroxaban, apixaban, edoxaban) or a direct thrombin inhibitor (e.g., dabigatran) anticoagulant treatment due to assay interference by these drugs. Performed at: [address] [id number] PhD Matthew Funez Performed By: #### 1 [id number] ####[address] [address] Protein S-antigenon 07-01-20 23 Protein S Ag actual/normal IA (PPP) [Relative mass conc] 99 % Invalid Interpretation Code 60-150 [facility] Comment on above: Result Comment: This test was developed and its performance characteristics determined by [facility]. It has not been cleared or approved by the Food and Drug Administration. Performed By: #### 1 5464732 ####[address] [address] Protein S Free Ag actual/normal IA (PPP) [Relative mass conc] 93 % Invalid Interpretation Code 61-136 [facility] Comment on above: Result Comment: Perf ormed at: [address] [place], [place] [id number] MD Tony Laird Performed By: #### 1 2781779 ####[address] [address] Lab Miscellaneous-LCon 06-30 Lab Miscellaneous COMMENT Invalid Interpretation Code [facility] Comment on above: Result Comment: Test Ordered: 030927 Protein C-Functional Protein C-Functional 140 % BN Reference Range: 73-180 Performed at: [address] [id number] PhD Matthew Funez Performed By: #### 1 [id number] ####[address] [address] Result Comment: Test Ordered: 362551 Antithrombin Activity Antithrombin Activity 146 [H ] % BN Reference Range: 75-135 An elevated antithrombin activity is of no known clinical significance. Direct Xa inhibitor anticoagulants such as rivaroxaban, apixaban and edoxaban will lead to spuriously elevated antithrombin activity levels possibly masking a deficiency. Performed at: [address] [id number] PhD Matthew Funez Auto Diffon 06-28-2023 Basophils/100 WBC (Bld) 0.6 % Normal 0.0-2.0 [facility] Comment on above: Order Comment: Order Added by Discern Expert. Performed By: #### 1 83889167, 23033972, 9421210, 44938783, 27631690, 41783907, 84440569, 1857623, 8982414, 1689633, 73793199, 3613284 ####[facility] [address] [place] [address] Basophils/Leukocytes Auto (Bld) [Pure # fraction] 0.0 E9/L Normal 0.0-0.2 [facility] Comment on above: Order Comment: Order Added by Discern Expert. Performed By: #### 1 44070849, 13246359, 0438459, 72613740, 46197171, 38912773, 39543962, 7274142, 1528219, 4412690, 81768454, 8871482 ####[facility] [address] [place] [address] Eosinophils/100 WBC (Bld) 0.7 % Normal 0.0-8.0 [facility] Comment on above: Order Comment: Order Added by Discern Expert. Performed By: #### 1 47960590, 92563652, 0319346, 90083073, 24794082, 29604832, 89950367, 6294127, 7418253, 0824956, 99019001, 7801093 ####[facility] [address] [place] [address] Eosinophils/Leukocytes Auto (Bld) [Pure # fraction] 0.1 E9/L Normal 0.0-0.5 [facility] Comment on above: Order Comment: Order Added by Discern Expert. Performed By: #### 1 17505575, 77567395, 0369726, 99440411, 29444660, 13880798, 25212480, 4999325, 8875729, 3817619, 78849503, 9559079 ####[facility] [address] [place] [address] Lymphocytes/100 WBC (Bld) 12.9 % Low 14.0-50.0 [facility] Comment on above: Order Comment: Order Added by Discern Expert. Performed By: #### 1 31828293, 62879375, 6335214, 29965765, 53384993, 39596906, 09981467, 1016313, 7243841, 5353155, 09555980, 2827315 ####[address] [address] Lymphocytes/Leukocytes Auto (Bld) [Pure # fraction] 1.0 E9/L Normal 1.0-4.0 [facility] Comment on above: Order Comment: Order Added by Discern Expert. Performed By: #### 1 43731540, 44416833, 8191571, 98572702, 68298439, 62845306, 88110270, 0258552, 0195614, 0799356, 16951810, 5154612 ####[address] [address] Monocytes/100 WBC (Bld) 6.8 % Normal 4.0-14.0 [facility] Comment on above: Order Comment: Order Added by Discern Expert. Performed By: #### 1 87901707, 61866800, 5208667, 13844283, 13601628, 17526995, 94930555, 4192526, 1604230, 7867411, 52905603, 3100364 ####[address] [address] Monocytes/Leukocytes Auto (Bld) [Pure # fraction] 0.5 E9/L Normal 0.2-1.0 [facility] Comment on above: Order Comment: Order Added by Discern Expert. Performed By: #### 1 16231846, 16102435, 9232649, 36913970, 00498812, 67524380, 94790935, 0894145, 9815798, 7605669, 48764707, 1037706 ####[facility] [address] [place] [address] Neutrophils/100 WBC (Bld) 79.0 % High 36.0-75.0 [facility] Comment on above: Order Comment: Order Added by Discern Expert. Performed By: #### 1 50302920, 86486761, 2262138, 70725441, 95149176, 67919621, 05238708, 2753812, 2718015, 9689149, 40841154, 7552267 ####[facility] [address] [place] [address] Neutrophils/Leukocytes Auto (Bld) [Pure # fraction] 6.1 E9/L Normal 2.0-7.5 [facility] Comment on above: Order Comment: Order Added by Discern Expert. Performed By: #### 1 16745935, 31823758, 2579014, 21446479, 14552686, 93924735, 71322519, 2918158, 5472143, 1567891, 07971303, 4793708 ####[facility] [address] [place] [address] CBC w/ Auto Diffon 3 Erythrocyte distribution width (RBC) [Ratio] 14.7 % High 10.9-14.2 [facility] Comment on above: Performed By: #### 1 18100921, 72051138, 3234183, 47405167, 45702880, 75339883, 87642735, 4040783, 5687050, 2861431, 38849855, 2144697 ####[facility] [address] [place] [address] Hematocrit (Bld) [Volume fraction] 38.9 % Normal 34.0-46.0 [facility] Comment on above: Performed By: #### 1 74306954, 44445073, 4610893, 70609037, 47064121, 43496866, 71796341, 1051776, 9432687, 8888571, 17872171, 4864524 ####[facility] [address] [place] [address] Hemoglobin (Bld) [Mass/Vol] 13.1 g/dL Normal 12.0-16.0 [facility] Comment on above: Performed By: #### 1 56400629, 39690965, 1206358, 22007067, 20621748, 10740309, 17974625, 7562219, 4002793, 0689667, 29088344, 4545040 ####[facility] [address] [place] [address] MCH (RBC) [Entitic mass] 29.4 pg Normal 27.0-34.0 [facility] Comment on above: Performed By: #### 1 93392164, 58096777, 6345600, 23530171, 32117502, 64733532, 70690593, 6829113, 6333717, 2165639, 40115860, 1932073 ####[facility] [address] [place] [address] MCHC (RBC) [Mass/Vol] 33.6 g/dL Normal 31.4-36.0 [facility] Comment on above: Performed By: #### 1 34107259, 14246742, 0096017, 52009979, 81972487, 16813874, 10002594, 8842366, 6703179, 3706853, 59938971, 5484292 ####[facility] [address] [place] [address] MCV (RBC) [Entitic vol] 87.4 fL Normal 80.0-100.0 [facility] Comment on above: Performed By: #### 1 56602472, 21415124, 4377390, 92240802, 76642830, 02023721, 08206308, 3631926, 3346584, 4868714, 86963831, 7576886 ####[facility] [address] [place] [address] Platelet mean volume (Bld) [Entitic vol] 10.7 fL Normal 6.4-10.8 [facility] Comment on above: Performed By: #### 1 51317774, 73993871, 9197033, 70508467, 19094813, 53684343, 51436745, 6298906, 8528578, 0444040, 29738068, 1689384 ####[facility] [address] [place] [address] Platelets (Bld) [#/Vol] 183.0 E9/L Normal 150.0-500.0 [facility] Comment on above: Performed By: #### 1 14006552, 20109058, 1771122, 49887806, 30836869, 21792526, 62107242, 9859005, 8428127, 3582342, 58500982, 1666763 ####[address] [address] RBC (Bld) [#/Vol] 4.5 E12/L Normal 4.3-5.9 [facility] Comment on above: Performed By: #### 1 39743293, 12841653, 5819376, 87813599, 97622632, 95512532, 06263388, 1007080, 9888341, 2746987, 92207520, 6948948 ####[address] [place] [address] WBC corrected for nucl RBC Auto (Bld) [#/Vol] 7.7 E9/L Normal 4.0-11.0 [facility] Comment on above: Performed By: #### 1 06464122, 67628294, 7840659, 41108850, 40691552, 79454007, 69710005, 0280540, 5554389, 9470204, 69713070, 8340909 ####[address] [place] [address] CMPon 06-28-2023 Albumin [Mass/Vol] 3.9 g/dL Normal 3.3-5.0 [facility] Comment on above: Performed By: #### 1 18923498, 69202433, 4316970, 42079253, 49094744, 93875810, 17454312, 6175152, 1278057, 0471090, 30324685, 5765128 ####[facility] [address] [place] [address] Albumin/Globulin (S) [Mass conc ratio] 0.9 Low 1.1-2.2 [facility] Comment on above: Performed By: #### 1 24412879, 15007425, 2762000, 88258116, 64100172, 16148989, 99773412, 7333931, 7013241, 1562869, 85426974, 6934811 ####[facility] [address] [place] [address] ALP [Catalytic activity/Vol] 69 Int._Unit/L Normal 21-98 [facility] Comment on above: Performed By: #### 1 64824224, 61859412, 5813602, 10370944, 75777452, 88980016, 71699718, 7539629, 1145621, 7784996, 23263199, 2217350 ####[facility] [address] [place] [address] ALT No additional P-5'-P [Catalytic activity/Vol] 19 Int._Unit/L Normal 6-46 [facility] Comment on above: Performed By: #### 1 32953536, 76617560, 9910767, 88783856, 06794459, 22647737, 16545335, 6234621, 9866196, 3376983, 79908457, 7298705 ####[facility] [address] [place] [address] Anion gap [Moles/Vol] 13 mmol/L Normal 6-16 [facility] Comment on above: Performed By: #### 1 93517818, 89645153, 6681586, 95407352, 52145136, 74482600, 42445183, 0941220, 7623579, 7291602, 90626637, 5922151 ####[address] [place] [address] AST [Catalytic activity/Vol] 22 Int._Unit/L Normal 5-43 [facility] Comment on above: Performed By: #### 1 09766606, 22885664, 5173160, 10490778, 27076522, 01874170, 93370598, 7275639, 3201186, 9612364, 30908089, 8522158 ####[address] [place] [address] Bilirubin [Mass/Vol] 0.4 mg/dL Normal 0.0-1.1 [facility] Comment on above: Performed By: #### 1 65505517, 33334504, 7891680, 43897701, 44140062, 13895275, 09595765, 9038148, 2903049, 2280795, 85954696, 6604956 ####[address] [address] Calcium [Mass/Vol] 9.8 mg/dL Normal 8.9-11.1 [facility] Comment on above: Performed By: #### 1 78178466, 71695690, 8788430, 73477291, 76224172, 56163766, 66920434, 9205782, 9117440, 9584091, 66590613, 5351130 ####[facility] [address] [place] [address] Chloride [Moles/Vol] 98 mmol/L Low 101-111 [facility] Comment on above: Performed By: #### 1 64348062, 77665976, 7390103, 76730706, 37996128, 01614640, 99468616, 7477931, 0134009, 8167137, 41600378, 9181224 ####[facility] [address] [place] [address] CO2 [Moles/Vol] 29 mmol/L Normal 21-31 [facility] Comment on above: Performed By: #### 1 21627678, 43620889, 0694341, 00359333, 17245790, 05567592, 46750162, 5339614, 3663298, 5119596, 52189879, 1928996 ####[facility] [address] [place] [address] Creatinine [Mass/Vol] 0.9 mg/dL Normal 0.5-1.3 [facility] Comment on above: Performed By: #### 1 63796723, 54413315, 0942329, 70751473, 24302794, 47037578, 23827162, 1696015, 7299434, 9645264, 42274412, 5946311 ####[facility] [address] [place] [address] Globulin (S) [Mass/Vol] 4.3 g/dL High 1.4-4.0 [facility] Comment on above: Performed By: #### 1 14592035, 17354727, 6004091, 98664425, 85612007, 51009858, 21981885, 4769141, 2322590, 0487376, 68984570, 1167008 ####[facility] [address] [place] [address] Glucose [Mass/Vol] 155 mg/dL Normal 55-199 [facility] Comment on above: Result Comment: If t his glucose result represents a fasting glucose, interpretation should refer to the following reference range: 55-99 mg/dL Performed By: #### 1 33867384, 94576196, 4850278, 18987733, 22643564, 09000884, 92050653, 9859345, 4809327, 5214582, 66933666, 2965818 ####[facility] [address] [place] [address] Potassium [Moles/Vol] 3.9 mmol/L Normal 3.5-5.3 [facility] Comment on above: Performed By: #### 1 68745604, 51710428, 0154511, 97401635, 78125951, 05972363, 15351800, 1634704, 8106528, 1505657, 87228760, 2713252 ####[facility] [address] [place] [address] Protein [Mass/Vol] 8.2 g/dL High 6.0-7.8 [facility] Comment on above: Performed By: #### 1 97194676, 06989780, 2387602, 79066287, 94267286, 24519740, 71008910, 2989042, 9231887, 8888463, 16757892, 5546570 ####[facility] [address] [place] [address] Sodium [Moles/Vol] 136 mmol/L Normal 135-145 [facility] Comment on above: Performed By: #### 1 78417521, 95873975, 8844246, 58815997, 16809499, 77114140, 25751012, 2680979, 0664758, 7852144, 78564701, 4433557 ####[facility] [address] [place] [address] Urea nitrogen [Mass/Vol] 22 mg/dL High 5-21 [facility] Comment on above: Performed By: #### 1 47440076, 22816874, 4076417, 94575661, 02072073, 45797922, 49069683, 0071013, 3160820, 2769221, 83107007, 9761686 ####[facility] [address] [place] [address] Urea nitrogen/Creatinine [Mass ratio] 24 No Units High 10-20 [facility] Comment on above: Performed By: #### 1 06671827, 86305742, 4637180, 97653188, 25516249, 03176418, 50289655, 7973359, 0445307, 3849594, 72260815, 0461948 ####[facility] [address] [place] [address] Consent for Treatmenton 06-01 Consent for Treatment [id number]#1 .00CD:127 Normal [facility] Consent for Treatment [id number]#1 .00CD:127 Normal [facility] D-Dimeron 06-28-2023 Fibrin D-dimer FEU (PPP) [Mass/Vol] 392 [id number] Normal 215-500 [facility] Comment on above: Result Comment: This assay [...] infections Liver cirrhosis Performed By: #### 1 89789961, 43872295, 3826489, 97891071, 84776086, 18607384, 12221090, 6666110, 8360206, 6596685, 45939124, 6963200 ####[facility] [address] [place] [address] Lab Miscellaneous-LCon 06-28 Lab Miscellaneous orderable test Invalid Interpretation Code [facility] Comment on above: Order Comment: order able test Performed By: #### 1 [id number] ####[facility] [address] [place] [address] Test Code 007707 Invalid Interpretation Code [facility] Comment on above: Order Comment: order able test Performed By: #### 1 [id number] ####[facility] [address] [place] [address] Test Code 082362 Invalid Interpretation Code [facility] Comment on above: Performed By: #### 1 [id number] ####[facility] [address] [facility] [place] [address] Test Code 947290 Invalid Interpretation Code [facility] Comment on above: Performed By: #### 1 [id number] ####[facility] [address] [facility] [address] Test Code 118457 Invalid Interpretation Code [facility] Comment on above: Performed By: #### 1 [id number] ####[facility] [address] [address] Test Name Prot s, ant Invalid Interpretation Code [facility] Comment on above: Order Comment: order able test Performed By: #### 1 [id number] ####[facility] [address] [place] [address], [place] [address] Test Name Prot C, func Invalid Interpretation Code [facility] Comment on above: Performed By: #### 1 [id number] ####[facility] [address] [place] [facility] [place] [address] Test Name AntiThromb III Invalid Interpretation Code [facility] Comment on above: Performed By: #### 1 [id number] ####[facility] [address] [address] Test Name Prot S, func Invalid Interpretation Code [facility] Comment on above: Performed By: #### 1 [id number] ####[facility] [address] [address] Oncology Noteon 06-28-2023 Oncology Note Oncology Servicer Travel Trailers Office Visit/Treatment Note Current Patient Status/Reason: Pt [...] concerns to me at this time. Normal [facility] Comment on above: Result Comment: Dorene rodriguezally Signed By: Tre CAZARES, Kristy\.br\Date and Time Signed: 06/28/23 11:35 EDT Oncology Progress Noteon Oncology Progress Note Patient: ALIYA MOORE Age: 57 years Sex: Female : 1965 Associated Diagnoses: None Author: Paulino BOOTHE, Roby Davis Chief Complaint Thrombophilia work up and decision about duration of anticoagulation for the acute PE diagnosed on . History of Present Illness Aliya was referred to our hematology office at [facility] for Thrombophilia work up and decision about duration of anticoagulation for the acute PE diagnosed on . She is a 57-year-old female cigarette smoker with history of hypertension, knk-svnuops-tzdzuumyr diabetes mellitus, obesity, chronic hypoxic respiratory failure on 3 L home oxygen, and depression who presented on 06/16/23 to [facility] ER with complaints of right-sided chest pain [...] puff(s), Inhalation, BID fluticasone Nasal 0.05 mg/inh Meggett 2 spray(s), Nasal, Daily furosemide 20 mg Tab 20 mg = 1 tab(s), Oral, Daily gabapentin 300 mg Cap 300 mg = 1 cap(s), Oral, BID hydrochlorothiazide-l isinopril 25 mg-20 mg Tab 1 tab(s), Oral, Daily lamotrigine 25 mg Tab 25 mg = 1 tab(s), Oral, BID pioglitazone 15 mg Tab 15 mg = 1 tab(s), Oral, Daily Potassium Chloride (Pjz-Mbnq-Kfl 10) 10 mEq oral tablet, extended release [...] list: All Problems Smoker / SNOMED CT 894040896 / Confirmed Added secondary to documentation in Social History. Histories Past Medical History: No active or resolved past medical history items have been selected or recorded. Family History: History is unknown. Procedure history: delivery (SNOMED CT 6290379492) on 05/05/1987 at 21 Years. delivery (SNOMED CT 5472670693) on 06/20/1984 at 18 Years. Cyst (SNOMED CT 7120624960). Comments: 06/28/2023 11:00 EDT - Prisca Montoya Removal of cyst of right foot. Knee (SNOMED CT 811667236). Comments: 06/28/2023 11:01 EDT - Prisca Montoya surgery Social History Social & Psychosocial Habits Alcohol Comment: denies - 06/16/2023 16:10 - eKzia Catalan Substance Abuse Comment: denies - 06/16/2023 [...] Rate 16 (more content not included)... Normal [facility] eGFRon 06-28-2023 GFR/1.73 sq M.predicted among non-blacks MDRD (S/P/Bld) [Vol rate/Area] 74 mL/min/1.73 m2 Normal >=59 [facility] Comment on above: Order Comment: Order added by Discern Expert. Result Comment: Monorail Car Operator nita kidney disease could be indicated at eGFR's of less than 60 mL/min/1.73m2. Kidney failure is indicated at less than 15 mL/min/1.73m2. Performed By: #### 1 [id number], 50363717, 0188390, 75403658, 11940466, 13811779, 41116822, 8787638, 7867261, 4520577, 28123071, 7108115 ####[facility] [address] [place] [address] Discharge Instructionson Discharge Instructions [id number]# 1.00CD:127 Normal [facility] CHEMISTRYOrdered By: Lab ROP User on 06-17-2023 Glucose [Mass/Vol] 109 mg/dL High 55 - 99 mg/dL [facility] POC Subsection Comment on above: Result Comment: Rafaela VELASQUEZ POC Device SN [id number] Invalid Interpretation Code FT POC Subsection POC User ID [id number] Invalid Interpretation Code FT POC Subsection POC Username BRENDA KHAN Invalid Interpretation Code [facility] POC Subsection Glucose [Mass/Vol] 133 mg/dL High 55 - 99 mg/dL [facility] POC Subsection Comment on above: Result Comment: Rafaela VELASQUEZ POC Device SN [id number] Invalid Interpretation Code FT POC Subsection POC User ID [id number] Invalid Interpretation Code FT POC Subsection POC Username FAVIOLA MURO Invalid Interpretation Code FT POC Subsection Glucose [Mass/Vol] 109 mg/dL High 55 - 99 mg/dL [facility] POC Subsection Comment on above: Result Comment: Rafaela VELASQUEZ POC Device SN [id number] Invalid Interpretation Code FT POC Subsection POC User ID [id number] Invalid Interpretation Code FT POC Subsection POC Username BRENDA KHAN Invalid Interpretation Code [facility] POC Subsection CHEMISTRYOrdered By: Kimberley Freeman on 06-17-2023 HbA1c (Bld) [Mass fraction] 5.7 % Normal <=5.9% [facility] ChemAutoSS CHEMISTRYOrdered By: SYSTEM SYSTEM on 06-17-2023 Troponin I.cardiac [Mass/Vol] 5.20 pg/mL Low 10.10 - 27.10 pg/mL [facility] Remisol Capillary Glucose POCon 05-31 Glucose [Mass/Vol] 109 mg/dL High 55-99 [facility] Comment on above: Result Comment: Rafaela VELASQUEZ Performed By: #### 2 [id number] ####[facility] [address] [place] [address] Glucose [Mass/Vol] 133 mg/dL High 55-99 [facility] Comment on above: Result Comment: Rafaela VELASQUEZ Performed By: #### 2 72583887 ####[facility] [address] [place] [address] Glucose [Mass/Vol] 109 mg/dL High 55-99 [facility] Comment on above: Result Comment: Rafaela VELASQUEZ Performed By: #### 2 [id number] ####[facility] [address] [place] [address] Discharge Note-Nursingon Discharge Note-Nursing ALIYA MOORE :1965 Visit Date:06/16/2023 Inpatient Discharge Instructions [...] care physician. This Is Your Medications List [facility] Prescription (ATORVASTATIN CALCIUM 40 MG TABLET) albuterol (Ventolin HFA 90 mcg/inh Aerosol-Adpt) albuterol-ipratropium (albuterol-ipratropiu m Inh Debby 3 mL UD) apixaban (Eliquis 5 mg oral tablet) aspirin (Aspirin Low Dose 81 mg oral enteric coated tablet) busPIRone (busPIRone 15 mg Tab) duloxetine (duloxetine 60 mg oral delayed release capsule) fluticasone (Flovent HFA 110 Aerosol) fluticasone nasal (fluticasone Nasal 0.05 mg/inh Meggett) formoterol-glycopyrro late (Bevespi Aerosphere 9 mcg-4.8 mcg/inh inhalation aerosol) furosemide (furosemide 20 mg Tab) gabapentin (gabapentin 300 mg Cap) hydrochlorothiazide-l isinopril (hydrochlorothiazide- lisinopril 25 mg-20 mg Tab) lamotrigine (lamotrigine 25 mg Tab) multivitamin (Daily Harvinder oral tablet) pioglitazone (pioglitazone 15 mg Tab) potassium chloride (Potassium Chloride (Ybp-Tvjx-Brd 10) 10 mEq oral tablet, extended release) [...] Christian When: 06/28/2023 11:00 AM EDT Where: [facility] [address] [place] [address] [place] [address]- Follow Up with BREA JJ When: Within 1 week Comments: A voice message is left with this office with your information so they can call you for a follow up appiontment. Please call them if you do not hear from them in a few days. Thank you. Where: [address] [place] [address] [phone] Business (1) Medications What How Much When [...] oral enteric coated tablet) Every day 06/18 9 AM Unchanged busPIRone (busPIRone 15 mg Tab) 1 Tablets By Mouth 3 times a day 06/17 @ PM Unchanged duloxetine (duloxetine 60 mg oral delayed release capsule) Every day 06/18 AM Unchanged fluticasone (Flovent HFA 110 Aerosol) 2 Puffs Inhalation 2 times a day 06/17 PM Unchanged fluticasone nasal (fluticasone Nasal 0.05 mg/ inh Meggett) 2 Sprays Nasal Inhalation Every day each nostril 06/18 9 AM Unchanged formoterol-glycopyrro late (Bevespi Aerosphere 9 mcg-4.8 mcg/ inh inhalation aerosol) 2 Puffs Inhalation 2 times a day 06/17 @ PM Unchanged furosemide (furosemide 20 mg Tab) 1 Tablets By Mouth Every day 06/18 AM Unchanged gabapentin (gabapentin 300 mg Cap) 1 Capsules By Mouth 2 times a day 06/17 PM Unchanged hydrochlorothiazide-l isinopril (hydrochlorothiazide- lisinopril 25 mg-20 mg Tab) 1 Tablets By Mouth Every day 06/18 AM Unchanged lamotrigine (lamotrigine 25 mg Tab) 1 Tablets By Mouth 2 times a day 06/17 @ PM Unchanged Misc Prescription (ATORVASTATIN CALCIUM 40 MG TABLET) 0 Every day 06/18 @ AM Unchanged multivitamin (Daily Harvinder oral tablet) 1 Tablets By Mouth Every day 06/18 (more content not included)... Normal [facility] [id number] 06-17-2023 HbA1c (Bld) [Mass fraction] 5.7 % Normal <=5.9 [facility] Comment on above: Performed By: #### 7 [id number] ####[facility] [address] [place] [address] Inpatient Clinical Summaryon 06-17-2023 Inpatient Clinical Summary [address] [address] Clinical Summary Person Information: Name: ALIYA MOORE Age: 57 Years : 1965 Sex: Female PCP: BREA JJ CNP Marital Status: Race: White Ethnicity: Non- or Language: Czech Visit Id: Visit Reason: Chest pain; MID STERNUM PAIN Speciality: Acuity: Enc Type: Observation Med Service: Medical Arrival: 06/16/2023 15:45:03 Discharge: Dispo Type: Admitted as IP to this Hosp Address: [address] [place] [address] [address] [facility] [phone] Provider Notes: Diagnosis: 1:Chest pain; 2:Acute pulmonary [...] day. fluticasone nasal (fluticasone Nasal 0.05 mg/inh Meggett) 2 Sprays Nasal Inhalation every day. each [...] Mouth every day. potassium chloride (Potassium Chloride (Pme-Goli-Zpr 10) 10 mEq oral tablet, extended release) [...] With: Address: When: BREA JJ [address] [place], [place] [phone] Business (1) Within 1 week Comments: A voice message is left with this office with your information so they can call you for a follow up appiontment. Please call them if you do not hear from them in a few days. Thank you. With: Address: When: [place] [facility], [address] [place] [address] 06/28/2023 11:00 AM Type Location [facility]/28/2023 11:00 AM 06/28/2023 11:45 AM Confirmed Patient Education Information: Normal [facility] Inpatient Patient Summaryon 06-17-2023 Inpatient Patient Summary [address] [address] Patient Discharge Instructions PERSON INFORMATION Name: ALIYA MOORE Date of : 1965 Current Date: 06/17/2023 09:58:26 PHYSICIANS Admitting Physician: Alex BARRIENTOS MD Primary Care Physician: BREA JJ CNP PCP Phone Number: [phone] Comment: Discharge Diagnosis: 1:Chest pain; 2:Acute pulmonary embolism; 3:Sinus tachycardia; 4:COPD without exacerbation; 5:Hypertension; 6:Diabetes mellitus; 7:Depression; 8:Chronic hypoxemic respiratory failure; 9:Obese; 10:Smoker; 11:On deep vein thrombosis (DVT) prophylaxis Condition at Discharge: Improved MOORE ALIYA Connie has been given the following list [...] With: Address: When: BREA JJ [address] [place], [place] [phone] Business (1) Within 1 week Comments: A voice message is left with this office with your information so they can call you for a follow up appiontment. Please call them if you do not hear from them in a few days. Thank you. With: Address: When: [place] Christian [facility], [address] [place] [address] 06/28/2023 11:00 AM In the event that this physician does not participate in your insurance network, please consult with your insurance company to find a nearby participating provider. Type Location [facility] ONC Office Visit [facility] ([facility]) [facility] 06/28/2023 11:00 AM 06/28/2023 11:45 AM Confirmed Comment: ITERESA PAMELA J, have received the attached patient [...] ____ fluticasone nasal (fluticasone Nasal 0.05 mg/inh Meggett) 2 Sprays Nasal Inhalation every day. each [...] Dose: ____ potassi (more content not included)... [facility] Insurance Correspondenceon 0 06-17-2023 Insurance Correspondence [id number]#1 .00CD:[address] 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 Pt's will transport. Pt has POC here to go home on O2. CRM to follow. Eliquis $0. Pt aware. [facility] Comment on above: Result Comment: Elec tronically Signed By: Marcia Montgomery\Date and Time Signed: 06/17/23 09:44 EDT Monitor Recordon 06-17-2023 Monitor Record [id number]# 1.00CD:[address] [facility] Monitor Record [id number]# 1.00CD:[address] [facility] Monitor Record [id number]# 1.00CD:[address] [facility] Monitor Record [id number]# 1.00CD:127 Normal [facility] Patient Education - Texton 0 06-17-2023 Patient Education - Text Normal [facility] Progress Note-Nurseon 2022 Progress Note-Nurse This RN cannot complete the Medication Reconciliation as to the fact that the Patient cannot recall the medications she is taking at home. The list will be available in the morning once the patients will be here in the hospital on 06/17/2023. Dr. Drummond was informed about this matter. On going care provided. Normal [facility] Troponin 6 Hr.on 06-17-2023 Troponin I.cardiac [Mass/Vol] 5.50 pg/mL Low 10.10-27.10 [facility] Comment on above: Result Comment: The 95% CI (Confidence Interval) PPV (Positive Predictive Value) for myocardial infarction in females is 38 pg/mL, in males 51 pg/mL. The results should be used in conjunction with clinical conditions of myocardial infarction. (Access High Sensitivity Troponin I Instructions For Use, [employer], May 2018) Performed By: #### 1 [id number] ####[facility] [address] [place] [address] Troponin 9 Hr.on 06-17-2023 Troponin I.cardiac [Mass/Vol] 5.20 pg/mL Low 10.10-27.10 [facility] Comment on above: Result Comment: The 95% CI (Confidence Interval) PPV (Positive Predictive Value) for myocardial infarction in females is 38 pg/mL, in males 51 pg/mL. The results should be used in conjunction with clinical conditions of myocardial infarction. (Access High Sensitivity Troponin I Instructions For Use, [employer], May 2018) Performed By: #### 1 [id number] ####[facility] [address] [place] [address] US LE Venous Duplex Bilatera danni 06-17-2023 [...] MD Transcribed by: NOHEMY Technologist: ALISSA Barkley [facility] XR Chest Single Viewon 06-17 XR Chest [...] mGy = na DAP = na Normal [facility] Auto DiffOrdered By: SYSTEM SYSTEM on 06-16-2023 Basophils/100 WBC (Bld) 0.3 % Normal 0.0-2.0 [facility] Heme[facility] Comment on above: Order Comment: Order Added by Discern Expert. Performed By: #### 2 365048, 9282013, 46289699, 4091588, 96676745, 33513890 ####[facility] [address] [place] [address] Basophils/Leukocytes Auto (Bld) [Pure # fraction] 0.0 E9/L Normal 0.0-0.2 [facility] Comment on above: Order Comment: Order Added by Quinton Expert. Performed By: #### 2 223839, 2015165, 24080924, 0349825, 56587765, 89574712 ####[address] [address] Eosinophils/100 WBC (Bld) 0.9 % Normal 0.0-8.0 [facility] Comment on above: Order Comment: Order Added by Quinton Expert. Performed By: #### 2 884142, 2237246, 70796624, 1712465, 55936385, 27858358 ####[address] [address] Eosinophils/Leukocytes Auto (Bld) [Pure # fraction] 0.1 E9/L Normal 0.0-0.5 [facility] Comment on above: Order Comment: Order Added by Quinton Expert. Performed By: #### 2 194282, 8228028, 41394513, 9410685, 91220241, 58028157 ####[address] [address] Lymphocytes/100 WBC (Bld) 14.3 % Normal 14.0-50.0 [facility] Comment on above: Order Comment: Order Added by Quinton Expert. Performed By: #### 2 438496, 2018268, 03384111, 9864038, 13746116, 37555429 ####[address] [address] Lymphocytes/Leukocytes Auto (Bld) [Pure # fraction] 1.2 E9/L Normal 1.0-4.0 [facility] Comment on above: Order Comment: Order Added by Quinton Expert. Performed By: #### 2 124894, 2909713, 23894188, 2924538, 13251874, 96434842 ####[address] [address] Monocytes/100 WBC (Bld) 8.8 % Normal 4.0-14.0 [facility] Comment on above: Order Comment: Order Added by Quinton Expert. Performed By: #### 2 800493, 8153518, 79170269, 2573296, 94237258, 65952342 ####[address] [place] [address] Monocytes/Leukocytes Auto (Bld) [Pure # fraction] 0.7 E9/L Normal 0.2-1.0 [facility] Comment on above: Order Comment: Order Added by Discern Expert. Performed By: #### 2 305375, 5567303, 64713828, 6124900, 06567243, 80123177 ####[address] [place] [address] Neutrophils/100 WBC (Bld) 75.7 % High 36.0-75.0 [facility] Comment on above: Order Comment: Order Added by Quinton Expert. Performed By: #### 2 582778, 7191421, 19713417, 4605036, 67894827, 19771250 ####[address] [address] Neutrophils/Leukocytes Auto (Bld) [Pure # fraction] 6.4 E9/L Normal 2.0-7.5 [facility] Comment on above: Order Comment: Order Added by Discern Expert. Performed By: #### 2 667484, 7367052, 49852313, 4617168, 37714729, 18966455 ####[address] [place] [address] BMPOrdered By: SYSTEM SYSTEM on 06-16-2023 Creatinine [Mass/Vol] 0.8 mg/dL Normal 0.5-1.3 [facility] Remisol Comment on above: Performed By: #### 2 021929, 8204762, 12779770, 7358398, 67247899, 36801732 ####[address] [place] [address] Urea nitrogen [Mass/Vol] 16 mg/dL Normal 5-21 [facility] Remisol Comment on above: Performed By: #### 2 711014, 8262236, 51965112, 8293291, 77235015, 39054267 ####[facility] [address] [place] [address] Anion gap [Moles/Vol] 12 mmol/L Normal 6-16 [facility] Remisol Comment on above: Performed By: #### 2 452171, 9770864, 91785944, 9342558, 52452856, 78648142 ####[facility] [address] [place] [address] Calcium [Mass/Vol] 9.9 mg/dL Normal 8.9-11.1 [facility] R emisol Comment on above: Performed By: #### 2 153808, 3859556, 79535560, 9233107, 68352555, 06111797 ####[facility] [address] [place] [address] Chloride [Moles/Vol] 101 mmol/L Normal 101-111 [facility] Remisol Comment on above: Performed By: #### 2 015373, 2310112, 90184679, 6816213, 97933884, 91135852 ####[facility] [address] [place] [address] CO2 [Moles/Vol] 27 mmol/L Normal 21-31 [facility] Wes debby Comment on above: Performed By: #### 2 520506, 6787095, 72282710, 1464146, 16906613, 19662735 ####[facility] [address] [place] [address] Glucose [Mass/Vol] 129 mg/dL Normal 55-199 [facility] R emisol Comment on above: Result Comment: If t his glucose result represents a fasting glucose, interpretation should refer to the following reference range: 55-99 mg/dL Performed By: #### 2 581983, 4098840, 38924509, 5650776, 55520901, 81475449 ####[facility] [address] [place] [address] Potassium [Moles/Vol] 3.9 mmol/L Normal 3.5-5.3 [facility] C Remisol Comment on above: Performed By: #### 2 902534, 3507737, 07946604, 7336433, 71290745, 19427312 ####[facility] [address] [place] [address] Sodium [Moles/Vol] 136 mmol/L Normal 135-145 [facility] R emisol Comment on above: Performed By: #### 2 212000, 2984070, 03347623, 6745476, 04362347, 67691714 ####[facility] [address] [place] [address] BMPon 06-16-2023 Urea nitrogen/Creatinine [Mass ratio] 20 No Units Normal 10-20 [facility] Comment on above: Performed By: #### 2 973477, 6668158, 87332795, 7186691, 53365945, 78742063 ####[facility] [address] [place] [address] CBC w/ Auto DiffOrdered By: Yanet Davis on 06-16-2023 Erythrocyte distribution width (RBC) [Ratio] 14.8 % High 10.9-14.2 [facility] Comment on above: Performed By: #### 2 643769, 8534914, 74876780, 2125548, 39224695, 61146820 ####[address] [place] [address] Hematocrit (Bld) [Volume fraction] 40.0 % Normal 34.0-46.0 [facility] Comment on above: Performed By: #### 2 395420, 6720646, 32261219, 8849750, 17605961, 61903481 ####[facility] [address] [place] [address] Hemoglobin (Bld) [Mass/Vol] 13.5 g/dL Normal 12.0-16.0 [facility] Comment on above: Performed By: #### 2 028075, 0587868, 17691916, [id number], [id number], [id number] ####[facility] [address] [place] [address] MCH (RBC) [Entitic mass] 29.6 pg Normal 27.0-34.0 FT HemeAutoSS Comment on above: Performed By: #### 2 536174, 4951799, 64716744, 4961151, 69858372, [id number] ####[address] [address] MCHC (RBC) [Mass/Vol] 33.8 g/dL Normal 31.4-36.0 FTM C HemeAutoSS Comment on above: Performed By: #### 2 758005, 3927023, 74798134, 1625210, 34141079, 65893442 ####[address] [address] MCV (RBC) [Entitic vol] 87.6 fL Normal 80.0-100.0 FT HemeAutoSS Comment on above: Performed By: #### 2 793188, 7235159, 19318298, 0851335, 02378054, 66305030 ####[address] [address] Platelet mean volume (Bld) [Entitic vol] 10.5 fL Normal 6.4-10.8 FT HemeAutoSS Comment on above: Performed By: #### 2 918711, 0933677, 86023014, 2478620, 09095057, [id number] ####[address] [address] Platelets (Bld) [#/Vol] 172.0 E9/L Normal 150.0-500.0 FT HemeAutoSS Comment on above: Performed By: #### 2 181732, 0355763, 43271015, 7622654, 35988578, 00368571 ####[address] [address] RBC (Bld) [#/Vol] 4.6 E12/L Normal 4.3-5.9 FT HemeAutoSS Comment on above: Performed By: #### 2 274619, 9700342, 71556806, 3604518, 57140472, 56321327 ####[facility] [address] [place] [address] WBC corrected for nucl RBC Auto (Bld) [#/Vol] 8.4 E9/L Normal 4.0-11.0 [facility] HemeAutoSS Comment on above: Performed By: #### 2 032276, 6289198, 14972426, 3898674, 30030946, 45863612 ####[facility] [address] [place] [address] CHEMISTRYOrdered By: SYSTEM SYSTEM on 06-16-2023 Troponin I.cardiac [Mass/Vol] 5.50 pg/mL Low 10.10 - 27.10 pg/mL [facility] Remisol Troponin I.cardiac [Mass/Vol] 5.30 pg/mL Low 10.10 - 27.10 pg/mL FT Remisol Urea nitrogen/Creatinine [Mass ratio] 20 mg/mg Normal 10 - 20 FT Remisol COAGULATIONOrdered By: David Chadwick on 06-16-2023 [...] 370 Contrast amount in ml's: 89 Normal [facility] Consent for Treatmenton 05-31 Consent for Treatment [id number] .00CD:127 Normal [facility] D-Dimeron 06-16-2023 Fibrin D-dimer FEU (PPP) [Mass/Vol] 532 [id number] Abnormal 215-500 [facility] Comment on above: Result Comment: Resu lts [...] infections Liver cirrhosis Performed By: #### 2 [id number] ####[facility] [address] [place] [id number] ED Clinical Summaryon 2022 ED Clinical Summary [address] [address] ED Clinical Summary Person Information Name: ALIYA MOORE Hilary/[facility] Age: 57 Years : 1965 Sex: Female Language: Czech PCP: BREA JJ CNP Marital Status: Visit Id: Visit Reason: Chest pain; MID STERNUM PAIN Speciality: Acuity: 2 Enc Type: Emergency Med Service: Emergency Arrival: 06/16/2023 15:45:03 Discharge: LOS: 000 06:14 Checkin: 06/16/2023 15:45:03 Checkout: 06/16/2023 21:59:01 Dispo Type: Admitted as IP to this [facility] EVENTS: Event Name Event Status Request Date/Time [...] 06/16/2023 21:04:33 Admit Request 06/16/2023 21:04:33 ADDRESS: [address] [place] [address] [place] [phone] PHYS DOC NOTES: MEDICAL INFORMATION: Prescriptions Given: PATIENT EDUCATION INFORMATION: Instructions: Follow up: DIAGNOSIS: 1:Chest pain; 2:Acute pulmonary embolism; 3:Sinus tachycardia; 4:COPD without exacerbation; 5:Hypertension; 6:Diabetes mellitus; 7:Depression; 8:Chronic hypoxemic respiratory failure; 9:Obese; 10:Smoker; 11:On deep vein thrombosis (DVT) prophylaxis [facility] ED Note-Nursingon 06-16-2023 ED Note-Nursing Per JUAN Reeves, patient okay to take at home Xanax medications. Pt took 1/2 of a .25mg tab. Normal [facility] ED Note-Physicianon 06-16-20 ED Note-Physician Basic Information Time Seen: Leandro Jo PA-C 06/16/2023 15:52 Chief Complaint CP started this afternoon while sitting down. states mid sternal CP /. wears 3L O2 all the time. History [...] and Complexity of Problems Differential Diagnosis: [] [facility] Data External documents reviewed: [] My [...] deep vein thrombosis (DVT) prophylaxis (Z79.899: Other fdc (current) drug therapy) 4. COPD without exacerbation [...] Tab, 162 (more content not included)... Normal [facility] Comment on above: Result Comment: Elec tronically Signed By: Leandro Jo PA-C\.br\Date and Time Signed: 06/16/23 18:46 EDT\.br\Electronically Co-Signed By: Ramses Hair DO\.br\Date and Time Co-Signed: 06/16/23 19:30 EDT ED Patient Education Noteon 06-16-2023 ED Patient Education Note Normal [facility] ED Patient Summaryon 023 ED Patient Summary [place] [address] Patient Discharge Instructions Person Information Name: ALIYA MOORE Age: 57 Years Arrival Date: 06/16/2023 15:45:03 Discharge Diagnosis: 1:Chest pain; 2:Acute pulmonary embolism; 3:Sinus tachycardia; 4:COPD without exacerbation; 5:Hypertension; 6:Diabetes mellitus; 7:Depression; 8:Chronic hypoxemic respiratory failure; 9:Obese; 10:Smoker; 11:On deep vein thrombosis (DVT) prophylaxis Primary Care Physician: BREA JJ CNP Provider Information Primary Provider: Ramses Hair DO [employer] Estimator:Leandro Jo PA-C The exam and treatment you received in the Emergency Department were for an urgent problem and are not intended as complete care. It is important that you follow up with a doctor, nurse practitioner, or physician?s embroidery assistant for ongoing care. If your symptoms become worse or you do not improve as expected and you are unable to reach your usual health care provider, you should return to the Emergency Department. We are available 24 hours a day. ALIYA MOORE has been given the following list [...] opioids can be used to help relieve ypvahjnb-xk-lnsiih pain and are often prescribed following a [...] be struggling with addiction, tell your health manager intensive care unit and ask for guid (more content not included)... Normal [facility] Monitor Recordon 06-16-2023 Monitor Record [id number]# 1.00CD:127 Normal [facility] PT & PTTon 06-16-2023 aPTT Coag (PPP) [Time] 31.8 second(s) Normal 25.1-36.5 [facility] Comment on above: Result Comment: Para meter [...] the same coagulation reagent and instrumentation as [facility]. Currently there are no coagulation studies available worldwide for children to 14 days, and no normal ranges. Heparin therapeutic range (represented by Anti-Factor Xa activity of 0.2 - 0.4 U/mL) corresponds to PTT of 56.6 - 109.0 sec. Performed By: #### 2 381395, 3353368, 34307931, 5939399, 27660070, 73719935 ####[facility] [address] [place] [address] PT Coag (PPP) [Time] 11.4 second(s) Normal 9.4-12.5 [facility] Comment on above: Result Comment: 15 d [...] the same coagulation reagent and instrumentation as [facility]. Currently there are no coagulation studies available worldwide for children to 14 days, and no normal ranges. Performed By: #### 2 463286, 3923310, 45091993, 0830627, 98418712, 08124262 ####[facility] [address] [place] [address] PT & PTTOrdered By: David sher on 06-16-2023 INR Coag (PPP) [Relative time] 1.0 {INR} Invalid Interpretation Code [facility] Auto Coag Comment on above: Result Comment: INR results are specifically intended to assess patients stabilized on long-term Anticoagulation therapy suggested INR?s ?Less Intensive Anticoagulation? 2.0 ? 3.0 Conventional Range 3.0 ? 4.5 Performed By: #### 2 976442, 1190194, 60497123, 3427516, 42431033, 47745593 ####[facility] [address] [place] [address] Troponin 0 Hr.on 06-16-2023 Troponin I.cardiac [Mass/Vol] 4.60 pg/mL Low 10.10-27.10 [facility] Comment on above: Result Comment: The 95% CI (Confidence Interval) PPV (Positive Predictive Value) for myocardial infarction in females is 38 pg/mL, in males 51 pg/mL. The results should be used in conjunction with clinical conditions of myocardial infarction. (Access High Sensitivity Troponin I Instructions For Use, [employer], May 2018) Performed By: #### 2 536966, 1016030, 58666089, 2030540, 48656072, 10289735 ####[facility] [address] [place] [address] Troponin 3 Hr.on 06-16-2023 Troponin I.cardiac [Mass/Vol] 5.30 pg/mL Low 10.10-27.10 [facility] Comment on above: Result Comment: The 95% CI (Confidence Interval) PPV (Positive Predictive Value) for myocardial infarction in females is 38 pg/mL, in males 51 pg/mL. The results should be used in conjunction with clinical conditions of myocardial infarction. (Access High Sensitivity Troponin I Instructions For Use, [employer], May 2018) Performed By: #### 1 [id number] ####[facility] [address] [place] [address] eGFROrdered By: SYSTEM [employer]far[employer]E [employer]kimo on 06-16-2023 GFR/1.73 sq M.predicted among non-blacks MDRD (S/P/Bld) [Vol rate/Area] 85 mL/min/1.73 m2 Normal >=59 [facility] Chem S Comment on above: Order Comment: Order added by Discern Expert. Result Comment: Monorail Car Operator nita kidney disease could be indicated at eGFR's of less than 60 mL/min/1.73m2. Kidney failure is indicated at less than 15 mL/min/1.73m2. Performed By: #### 2 399028, 3688527, 31501195, 2624882, 56910067, 06276794 ####[facility] [address] [place] [address] 36on 06-09-2023 36 Patient will need a follow up appointment for further refills Normal [facility] BNPon 02-23-2023 Natriuretic peptide B (Bld) [Mass/Vol] 114.0 pg/mL Normal <=900.0 [facility] Comment on above: Performed By: #### C MP, BNP, HSTROPN #### [facility] [address] [place] [address] Dr. Xiomy Lennon CBC AUTO DIFFon 02-23-2023 BASO # 0.0 103/ul Normal 0.0-0.1 [facility] Comment on above: Performed By: #### P T, PTT #### [facility] [address] [place] [address] Dr. Xiomy Lennon Basophils/100 WBC (Bld) 0.2 % Normal 0.2-2.0 [facility] Comment on above: Performed By: #### P T, PTT #### [facility] [address] [place] [address] Dr. Xiomy Lennon EO # 0.2 103/ul Normal 0.0-0.7 [facility] Comment on above: Performed By: #### P T, PTT #### [facility] [address] [place] [address] Dr. Xiomy Lennon Eosinophils/100 WBC (Bld) 1.8 % Normal 0.9-7.0 [facility] Comment on above: Performed By: #### P T, PTT #### [facility] [address] [place] [address] Dr. Xiomy Lennon Erythrocyte distribution width (RBC) [Ratio] 15.4 % Critically high 11.0-15.0 [facility] Comment on above: Performed By: #### P T, PTT #### [facility] [address] [place] [address] Dr. Xiomy Lennon Hematocrit (Bld) [Volume fraction] 37.6 % Normal 36.0-48.0 [facility] Comment on above: Performed By: #### P T, PTT #### [facility] [address] [place] [address] Dr. Xiomy Lennon Hemoglobin (Bld) [Mass/Vol] 12.2 g/dL Normal 12.0-16.0 [facility] Comment on above: Performed By: #### P T, PTT #### [facility] [address] [place] [address] Dr. Xiomy Lennon IG # 0.02 10e3/ul Normal 0.00-0.03 [facility] Comment on above: Performed By: #### P T, PTT #### [facility] [address] [place] [address] Dr. Xiomy Lennon IG % 0.2 % Normal 0.0-0.5 [facility] Comment on above: Performed By: #### P T, PTT #### [facility] [address] [place] [address] Dr. Xiomy Lennon LYMPH # 1.7 103/ul Normal 1.2-3.[address] [facility] Comment on above: Performed By: #### P T, PTT #### [facility] [address] [place] [address] Dr. Xiomy Lennon Lymphocytes/100 WBC (Bld) 17.0 % Critically low 20.5-60.0 [facility] Comment on above: Performed By: #### P T, PTT #### [facility] [address] [place] [address] Dr. Xiomy Lennon MANUAL DIFF REQ NO Normal [facility] Comment on above: Performed By: #### P T, PTT #### [facility] [address] [place] [address] Dr. Xiomy Lennon MCH (RBC) [Entitic mass] 28.6 pg Normal 26.7-34.0 [facility] Comment on above: Performed By: #### P T, PTT #### [facility] [address] [place] [address] Dr. Xiomy Lennon MCHC (RBC) [Mass/Vol] 32.4 g/dL Normal 29.9-35.[address] [facility] Comment on above: Performed By: #### P T, PTT #### [facility] [address] [place] [address] Dr. Xiomy Lennon MCV (RBC) [Entitic vol] 88.3 fL Normal 81.0-99.[address] [facility] Comment on above: Performed By: #### P T, PTT #### [facility] [address] [place] [address] Dr. Xiomy Lennon MONO # 0.7 103/ul Normal 0.3-0.[address] [facility] Comment on above: Performed By: #### P T, PTT #### [facility] [address] [place] [address] Dr. Xiomy Lennon Monocytes/100 WBC (Bld) 7.3 % Normal 1.7-12.[address] [facility] Comment on above: Performed By: #### P T, PTT #### [facility] [address] [place] [address] Dr. Xiomy Lennon NEUT # 7.2 103/ul Critically high 1.4-6.5 [facility] Comment on above: Performed By: #### P T, PTT #### [facility] [address] [place] [address] Dr. Xiomy Lennon Neutrophils/100 WBC (Bld) 73.5 % Normal 43.0-75.[address] [facility] Comment on above: Performed By: #### P T, PTT #### [facility] [address] [place] [address] Dr. Xiomy Lennon Platelet mean volume (Bld) [Entitic vol] 11.5 fL Normal 9.5-13.[address] [facility] Comment on above: Performed By: #### P T, PTT #### [facility] [address] [place] [address] Dr. Xiomy Lennon PLT 197 103/ul Normal 150-[address] [facility] Comment on above: Performed By: #### P T, PTT #### [facility] [address] [place] [address] Dr. Xiomy Lennon RBC 4.26 106/ul Normal 4.20-5.40 [facility] Comment on above: Performed By: #### P T, PTT #### [facility] [address] [place] [address] Dr. Xiomy Lennon WBC 9.7 103/ul Normal 4.0-11.0 [facility] Comment on above: Performed By: #### P T, PTT #### [facility] [address] [place] [address] Dr. Xiomy Lennon LACTATE/LACTIC ACIDon 2022 Lactate [Moles/Vol] 0.7 mmol/L Normal 0.4-2.0 [facility] Comment on above: Performed By: #### P T, PTT #### [facility] [address] [place] [address] Dr. Xiomy Lennon PROF 14(COMP METB)on 023 Albumin [Mass/Vol] 3.3 g/dL Critically low 3.4-5.0 [facility] Comment on above: Performed By: #### C MP, BNP, HSTROPN #### [facility] [address] [place] [address] Dr. Xiomy Lennon Albumin/Globulin [Mass ratio] 0.7 {ratio} Normal [facility] Comment on above: Performed By: #### C MP, BNP, HSTROPN #### [facility] [address] [place] [address] Dr. Xiomy Lennon ALP [Catalytic activity/Vol] 89 U/L Normal 46-116 [facility] Comment on above: Performed By: #### C MP, BNP, HSTROPN #### [facility] [address] [place] [address] Dr. Xiomy Lennon ALT [Catalytic activity/Vol] 34 U/L Normal 14-59 [facility] Comment on above: Performed By: #### C MP, BNP, HSTROPN #### [facility] [address] [place] [address] Dr. Xiomy Lennon Anion gap [Moles/Vol] 10.5 mmol/L Normal Th e [facility] Comment on above: Performed By: #### C MP, BNP, HSTROPN #### [facility] [address] [place] [address] Dr. Xiomy Lennon AST [Catalytic activity/Vol] 22 U/L Normal 15-37 [facility] Comment on above: Performed By: #### C MP, BNP, HSTROPN #### [facility] [address] [place] [address] Dr. Xiomy Lennon Bilirubin [Mass/Vol] 0.3 mg/dL Normal 0.2-1.[address] [facility] Comment on above: Performed By: #### C MP, BNP, HSTROPN #### [facility] [address] [place] [address] Dr. Xiomy Lennon Calcium [Mass/Vol] 9.4 mg/dL Normal 8.5-10.1 [facility] Comment on above: Performed By: #### C MP, BNP, HSTROPN #### [facility] [address] [place] [address] Dr. Xiomy Lennon Chloride [Moles/Vol] 99 mmol/L Normal 98-[address] [facility] Comment on above: Performed By: #### C MP, BNP, HSTROPN #### [facility] [address] [place] [address] Dr. Xiomy Lennon CO2 [Moles/Vol] 31.6 mmol/L Normal 21.0-32.0 [facility] Comment on above: Performed By: #### C MP, BNP, HSTROPN #### [facility] [address] [place] [address] Dr. Xiomy Lennon Creatinine [Mass/Vol] 0.86 mg/dL Normal 0.55-1.02 [facility] Comment on above: Performed By: #### C MP, BNP, HSTROPN #### [facility] [address] [place] [address] Dr. Xiomy Lennon EGFR-AF SALVADOREAN >60 Normal >=60 [facility] Comment on above: Performed By: #### C MP, BNP, HSTROPN #### [facility] [address] [place] [address] Dr. Xiomy Lennon EGFR-NON AF SALVADOREAN >60 Normal >=60 [facility] Comment on above: Performed By: #### C MP, BNP, HSTROPN #### [facility] [address] [place] [address] [address] Xiomy Lennon Globulin (S) [Mass/Vol] 4.6 g/dL Normal [facility] Comment on above: Performed By: #### C MP, BNP, HSTROPN #### [facility] [address] [place] [address] Dr. Xiomy Lennon Glucose [Mass/Vol] 133 mg/dL Critically high 74-106 [facility] Comment on above: Performed By: #### C MP, BNP, HSTROPN #### [facility] [address] [place] [address] Dr. Xiomy Lennon Potassium [Moles/Vol] 4.1 mmol/L Normal 3.5-5.1 [facility] Comment on above: Performed By: #### C MP, BNP, HSTROPN #### [facility] [address] [place] [address] Dr. Xiomy Lennon Protein [Mass/Vol] 7.9 g/dL Normal 6.4-8.2 [facility] Comment on above: Performed By: #### C MP, BNP, HSTROPN #### [facility] [address] [place] [address] Dr. Xiomy Lennon Sodium [Moles/Vol] 137 mmol/L Normal 136-145 [facility] Comment on above: Performed By: #### C MP, BNP, HSTROPN #### [facility] [address] [place] [address] Dr. Xiomy Lennon Urea nitrogen [Mass/Vol] 16.0 mg/dL Normal 7.0-18.0 [facility] Comment on above: Performed By: #### C MP, BNP, HSTROPN #### [facility] [address] [place] [address] Dr. Xiomy Lennon Urea nitrogen/Creatinine [Mass ratio] 18.6 mg/mg Normal [facility] Comment on above: Performed By: #### C MP, BNP, HSTROPN #### [facility] [address] [place] [address] Dr. Xiomy Lennon PROTIMEon 02-23-2023 INR Coag (PPP) [Relative time] 0.95 {INR} Normal [facility] Comment on above: Performed By: #### P TT, PT #### [facility] [address] [place] [address] Dr. Xiomy Lennon INR GUIDELINES SEE BELOW Normal [facility] Comment on above: Result Comment: NIALL RED INR: 2.0 - 3.0 CONDITIONS NOT LISTED BELOW 2.5 - 3.5 FOR PROSTHETIC HEART VALVE REPLACEMENT 2.5 - 3.5 RECURRENT THROMBOSIS Performed By: #### P TT, PT #### [facility] [address] [place] [address] Dr. Xiomy Lennon PT Coag (PPP) [Time] 10.1 s Normal 9.0-11.6 [facility] Comment on above: Performed By: #### P TT, PT #### [facility] [address] [place] [address] Dr. Xiomy Lennon PTTon 02-23-2023 aPTT Coag (Bld) [Time] 27.2 s Normal 22.3-36.2 [facility] Comment on above: Performed By: #### P TT, PT #### [facility] [address] [place] [address] Dr. Xiomy Lennon TROPONIN, HIGH SENSITIVITYon 02-23-2023 HSTROP 6.2 pg/mL Normal 4.0-51.3 [facility] Comment on above: Result Comment: CUT- OFF POINTS HAVE BEEN ESTABLISHED BASED ON THE FOURTH UNIVERSAL DEFINITIONS OF MYOCARDIAL INFARCTION. THE UPPER REFERENCE LIMIT (URL) OF TROPONIN, DEFINED THE 99TH PERCENTILE OF cTnI DISTRIBUTION IN A REFERENCE POPULATION, HAS BEEN CONFIRMED THE DECISION THRESHOLD FOR RI DIAGNOSIS. Performed By: #### C MP, BNP, HSTROPN #### [facility] [address] [place] [address] Dr. Xiomy Lennon XR CHEST 1 Von [...] by: JUSTINE MARES Date: 2023-02-23 19:05 Normal [facility] HEMOGLOBINon 02-01-2023 Hemoglobin (Bld) [Mass/Vol] 13.0 g/dL Normal 12.0-16.0 [facility] Comment on above: Performed By: #### H GB #### [facility] [address] [place] [address] [address] Xiomy Lennon PULMONARY FUNCTION TESTon PULMONARY [...] correlation required. Normal The [facility] CT LUNG CANCER SCREENINGon 0 01-12-2023 [...] by: MIGUEL MEDEROS Date: 2023-01-12 14:10 Normal [facility] GLYCOHEMOGLOBIN A1Con 2022 ADA RECOMMENDATION SEE BELOW Normal [facility] Comment on above: Result Comment: ADA RECOMMENDED LIMIT 4.0 - 6.0 ADA THERAPEUTIC TARGET < 7.0 ACTION SUGGESTED > 7.0 Performed By: #### A 1C #### [facility] [address] [place] [address] [address] Xiomy Lennon Glucose [Mass/Vol] 111 mg/dL Normal [facility] Comment on above: Performed By: #### A 1C #### [facility] [address] [place] [address] [address] Xiomy Lennon HbA1c (Bld) [Mass fraction] 5.5 % Normal 4.5-6.2 [facility] Comment on above: Performed By: #### A 1C #### [facility] [address] [place] [address] [address] Xiomy Lennon PROF CHEM 8 (BAS METB)on Anion gap [Moles/Vol] 12.0 mmol/L Normal [facility] Comment on above: Performed By: #### P T, PTT #### [facility] [address] [address] [address] Xiomy Lennon Calcium [Mass/Vol] 10.0 mg/dL Normal 8.5-10.1 [facility] Comment on above: Performed By: #### P T, PTT #### [facility] [address] [address] [address] Xiomy Lennon Chloride [Moles/Vol] 102 mmol/L Normal 98-[address] [facility] [address] [facility] Comment on above: Performed By: #### P T, PTT #### [facility] [address] [address] [address] Xiomy Lennon CO2 [Moles/Vol] 30.4 mmol/L Normal 21.0-32.0 [facility] Comment on above: Performed By: #### P T, PTT #### [facility] [address] [place] [address] Dr. Xiomy Lennon Creatinine [Mass/Vol] 0.79 mg/dL Normal 0.55-1.02 [facility] Comment on above: Performed By: #### P T, PTT #### [facility] [address] [address] [address] Xiomy Lennon EGFR-AF SALVADOREAN >60 Normal >=60 [facility] Comment on above: Performed By: #### P T, PTT #### [facility] [address] [place] [address] Dr. Xiomy Lennon EGFR-NON AF SALVADOREAN >60 Normal >=60 [facility] Comment on above: Performed By: #### P T, PTT #### [facility] [address] [place] [address] Dr. Xiomy Lennon Glucose [Mass/Vol] 147 mg/dL Critically high 74-106 [facility] Comment on above: Performed By: #### P T, PTT #### [facility] [address] [address] [address] Xiomy Lennon Potassium [Moles/Vol] 4.4 mmol/L Normal 3.5-5.1 [facility] Comment on above: Performed By: #### P T, PTT #### [facility] [address] [address] [address] Xiomy Lennon Sodium [Moles/Vol] 140 mmol/L Normal 136-145 [facility] Comment on above: Performed By: #### P T, PTT #### [facility] [address] [address] [address] Xiomy Lennon Urea nitrogen [Mass/Vol] 18.0 mg/dL Normal 7.0-18.0 [facility] Comment on above: Performed By: #### P T, PTT #### [facility] [address] [address] [address] Xiomy Lennon Urea nitrogen/Creatinine [Mass ratio] 22.8 mg/mg Normal [facility] Comment on above: Performed By: #### P T, PTT #### [facility] [address] [address] [address] Xiomy Lennon Office Visiton 12-24-2022 Follow-up visit [id number] Ailya Moore 1965 F Date Provider Department Center 12/24/2022 [facility] Family History Problem Relation Age of Onset Coronary artery disease Other Pulmonary embolism Other Deep vein thrombosis Other Family Status - Relation Status Age at Other Level of Service:15292 MA OFFICE/OUTPATIENT ESTABLISHED MOD MDM 30-39 MIN Reason for Visit and Comments: Hypertension [842221] Shortness of Breath [411551] Normal [facility] THEOPHYLLINEon 11-04-2022 THEOPHYLLINE 2.1 ug/mL Critically low 10.0-20.0 [facility] Comment on above: Performed By: #### T HERBERT #### [facility] [address] [place] [address] Dr. Xiomy Lennon GLYCOHEMOGLOBIN A1Con 2021 ADA RECOMMENDATION SEE BELOW Normal [facility] Comment on above: Result Comment: ADA RECOMMENDED LIMIT 4.0 - 6.0 ADA THERAPEUTIC TARGET < 7.0 ACTION SUGGESTED > 7.0 Performed By: #### P T, PTT #### [facility] [address] [address] [address] Xiomy Lennon Glucose [Mass/Vol] 120 mg/dL Normal [facility] Comment on above: Performed By: #### P T, PTT #### [facility] [address] [address] [address] Xiomy Lennon HbA1c (Bld) [Mass fraction] 5.8 % Normal 4.5-6.2 [facility] Comment on above: Performed By: #### P T, PTT #### [facility] [address] [address] [address] Xiomy Lennon LIPID PROFILEon 07-28-2022 CHOL-HDL RATIO NORM SEE BELOW Normal [facility] Comment on above: Result Comment: 3.3 - 4.4 LOW RISK 4.4 - 7.1 AVERAGE RISK 7.1 - 11.0 MODERATE RISK >11.0 HIGH RISK Performed By: #### P T, PTT #### [facility] [address] [address] [address] Xiomy Lennon Cholesterol [Mass/Vol] 135 mg/dL Normal <=200 [facility] Comment on above: Performed By: #### P T, PTT #### [facility] [address] [address] [address] Xiomy Lennon Cholesterol in HDL [Mass/Vol] 77 mg/dL Critically high 40-60 [facility] Comment on above: Performed By: #### P T, PTT #### [facility] [address] [address] [address] Xiomy Lennon Cholesterol in LDL [Mass/Vol] 44.6 mg/dL Normal [facility] Comment on above: Performed By: #### P T, PTT #### [facility] [address] [address] [address] Xiomy Lennon Cholesterol.total/Chol esterol in HDL [Mass ratio] 1.8 {ratio} Normal [facility] Comment on above: Performed By: #### P T, PTT #### [facility] [address] [address] [address] Xiomy Lennon HDL NORMAL > or = 60 mg/dl - LO W CARDIOVASCULAR RISK <40 mg/dl - HIGH CARDIOVASCULAR RISK Normal [facility] Comment on above: Performed By: #### P T, PTT #### [facility] [address] [address] [address] Xiomy Lennon LDL CALC NORMAL SEE BELOW Normal [facility] Comment on above: Result Comment: <100 mg/dl OPTIMAL 100 - 129 mg/dl NEAR OR ABOVE OPTIMAL 130 - 159 mg/dl BORDERLINE HIGH 160 - 189 mg/dl HIGH >190 mg/dl VERY HIGH Performed By: #### P T, PTT #### [facility] [address] [address] [address] Xiomy Lennon Triglyceride [Mass/Vol] 67 mg/dL Normal <=150 [facility] Comment on above: Performed By: #### P T, PTT #### [facility] [address] [address] [address] Xiomy Lennon VLDL CALC 13.4 mg/dL Normal [facility] Comment on above: Performed By: #### P T, PTT #### [facility] [address] [place] [address] Dr. Xiomy Lennon PROF CHEM 8 (BAS METB)on Anion gap [Moles/Vol] 8.9 mmol/L Normal [facility] Comment on above: Performed By: #### P T, PTT #### [facility] [address] [address] [address] Xiomy Lennon Calcium [Mass/Vol] 9.7 mg/dL Normal 8.5-10.1 [facility] Comment on above: Performed By: #### P T, PTT #### [facility] [address] [place] [address] Dr. Xiomy Lennon Chloride [Moles/Vol] 99 mmol/L Normal 98-[address] [facility] Comment on above: Performed By: #### P T, PTT #### [facility] [address] [address] [address] Xiomy Lennon CO2 [Moles/Vol] 32.0 mmol/L Normal 21.0-32.0 [facility] Comment on above: Performed By: #### P T, PTT #### [facility] [address] [address] [address] Xiomy Lennon Creatinine [Mass/Vol] 0.78 mg/dL Normal 0.55-1.02 [facility] Comment on above: Performed By: #### P T, PTT #### [facility] [address] [address] [address] Xiomy Lennon EGFR-AF SALVADOREAN >60 Normal >=60 [facility] Comment on above: Performed By: #### P T, PTT #### [facility] [address] [address] [address] Xiomy Lennon EGFR-NON AF SALVADOREAN >60 Normal >=60 [facility] Comment on above: Performed By: #### P T, PTT #### [facility] [address] [address] [address] Xiomy Lennon Glucose [Mass/Vol] 111 mg/dL Critically high 74-106 [facility] Comment on above: Performed By: #### P T, PTT #### [facility] [address] [place] [address] Dr. Xiomy Lennon Potassium [Moles/Vol] 3.9 mmol/L Normal 3.5-5.1 [facility] Comment on above: Performed By: #### P T, PTT #### [facility] [address] [address] [address] Xiomy Lennon Sodium [Moles/Vol] 136 mmol/L Normal 136-145 [facility] Comment on above: Performed By: #### P T, PTT #### [facility] [address] [address] [address] Xiomy Lennon Urea nitrogen [Mass/Vol] 10.0 mg/dL Normal 7.0-18.0 [facility] Comment on above: Performed By: #### P T, PTT #### [facility] [address] [address] [address] Xiomy Lennon Urea nitrogen/Creatinine [Mass ratio] 12.8 mg/mg Normal [facility] Comment on above: Performed By: #### P T, PTT #### [facility] [address] [place] [address] Dr. Xiomy Lennon MG MAMM SCREEN 3D EMY CADon 04-30-2022 MG MAMM SCREEN 3D EMY CAD Patient: ALIYA MOORELakia Exam Date: 04/30/2022 : 1965 Gender:F Ordering : [employer] Admission #: [id number] Family : Order #: [id number] CLICK HERE TO VIEW EXAM RADIOLOGY REPORT [...] Cancers None LOCATION: [facility] BREAST COMPOSITION: Almost entirely fatty. FINDINGS: [...] at 10:06 Normal [facility] CBC AUTO DIFFon 03-26-2022 BASO # 0.0 103/ul Normal 0.0-0.1 [facility] Comment on above: Performed By: #### P T, PTT #### [facility] [address] [place] [address] Dr. Xiomy Lennon Basophils/100 WBC (Bld) 0.2 % Normal 0.2-2.0 [facility] Comment on above: Performed By: #### P T, PTT #### [facility] [address] [address] [address] Xiomy Lennon EO # 0.2 103/ul Normal 0.0-0.7 [facility] Comment on above: Performed By: #### P T, PTT #### [facility] [address] [place] [address] Dr. Xiomy Lennon Eosinophils/100 WBC (Bld) 1.7 % Normal 0.9-7.0 [facility] Comment on above: Performed By: #### P T, PTT #### [facility] [address] [place] [address] Dr. Xiomy Lennon Erythrocyte distribution width (RBC) [Ratio] 15.6 % Critically high 11.0-15.0 [facility] Comment on above: Performed By: #### P T, PTT #### [facility] [address] [place] [address] Dr. Xiomy Lennon Hematocrit (Bld) [Volume fraction] 43.4 % Normal 36.0-48.0 [facility] Comment on above: Performed By: #### P T, PTT #### [facility] [address] [place] [address] Dr. Xiomy Lennon Hemoglobin (Bld) [Mass/Vol] 14.0 g/dL Normal 12.0-16.0 [facility] Comment on above: Performed By: #### P T, PTT #### [facility] [address] [place] [address] Dr. Xiomy Lennon IG # 0.04 10e3/ul Critically high 0.00-0.03 [facility] Comment on above: Performed By: #### P T, PTT #### [facility] [address] [place] [address] Dr. Xiomy Lennon IG % 0.4 % Normal 0.0-0.5 [facility] Comment on above: Performed By: #### P T, PTT #### [facility] [address] [place] [address] Dr. Xiomy Lennon LYMPH # 1.2 103/ul Normal 1.2-3.8 [facility] Comment on above: Performed By: #### P T, PTT #### [facility] [address] [place] [address] Dr. Xiomy Lennon Lymphocytes/100 WBC (Bld) 11.4 % Critically low 20.5-60.0 [facility] Comment on above: Performed By: #### P T, PTT #### [facility] [address] [place] [address] Dr. Xiomy Lennon MANUAL DIFF REQ NO Normal [facility] Comment on above: Performed By: #### P T, PTT #### [facility] [address] [place] [address] Dr. Xiomy Lennon MCH (RBC) [Entitic mass] 29.7 pg Normal 26.7-34.0 [facility] Comment on above: Performed By: #### P T, PTT #### [facility] [address] [place] [address] Dr. Xiomy Lennon MCHC (RBC) [Mass/Vol] 32.3 g/dL Normal 29.9-35.2 [facility] Comment on above: Performed By: #### P T, PTT #### [facility] [address] [place] [address] Dr. Xiomy Lennon MCV (RBC) [Entitic vol] 92.1 fL Normal 81.0-99.0 [facility] Comment on above: Performed By: #### P T, PTT #### [facility] [address] [place] [address] Dr. Xiomy Lennon MONO # 0.8 103/ul Normal 0.3-0.8 [facility] Comment on above: Performed By: #### P T, PTT #### [facility] [address] [place] [address] Dr. Xiomy Lennon Monocytes/100 WBC (Bld) 7.9 % Normal 1.7-12.0 [facility] Comment on above: Performed By: #### P T, PTT #### [facility] [address] [place] [address] Dr. Xiomy Lennon NEUT # 8.3 103/ul Critically high 1.4-6.5 [facility] Comment on above: Performed By: #### P T, PTT #### [facility] [address] [place] [address] Dr. Xiomy Lennon Neutrophils/100 WBC (Bld) 78.4 % Critically high 43.0-75.0 [facility] Comment on above: Performed By: #### P T, PTT #### [facility] [address] [place] [address] Dr. Xiomy Lennon Platelet mean volume (Bld) [Entitic vol] 11.0 fL Normal 9.5-13.5 [facility] Comment on above: Performed By: #### P T, PTT #### [facility] [address] [place] [address] Dr. Xiomy Lennon PLT 196 103/ul Normal 150-450 [facility] Comment on above: Performed By: #### P T, PTT #### [facility] [address] [place] [address] Dr. Xiomy Lennon RBC 4.71 106/ul Normal 4.20-5.40 [facility] Comment on above: Performed By: #### P T, PTT #### [facility] [address] [place] [address] Dr. Xiomy Lennon WBC 10.6 103/ul Normal 4.0-11.0 [facility] Comment on above: Performed By: #### P T, PTT #### [facility] [address] [place] [address] Dr. Xiomy Lennon LIPASEon 03-26-2022 Lipase [Catalytic activity/Vol] 92.0 U/L Normal 73.0-393.0 [facility] Comment on above: Performed By: #### P T, PTT #### [facility] [address] [place] [address] Dr. Xiomy Lennon PROF 14(COMP METB)on 022 Albumin [Mass/Vol] 3.6 g/dL Normal 3.4-5.0 [facility] Comment on above: Performed By: #### P T, PTT #### [facility] [address] [place] [address] Dr. Xiomy Lennon Albumin/Globulin [Mass ratio] 0.7 {ratio} Normal [facility] Comment on above: Performed By: #### P T, PTT #### [facility] [address] [place] [address] Dr. Xiomy Lennon ALP [Catalytic activity/Vol] 78 U/L Normal 46-[address] [facility] Comment on above: Performed By: #### P T, PTT #### [facility] [address] [place] [address] Dr. Xiomy Lennon ALT [Catalytic activity/Vol] 25 U/L Normal 14-59 [facility] Comment on above: Performed By: #### P T, PTT #### [facility] [address] [place] [address] Dr. Xiomy Lennon Anion gap [Moles/Vol] 9.4 mmol/L Normal [facility] Comment on above: Performed By: #### P T, PTT #### [facility] [address] [address] [address] Xiomy Lennon AST [Catalytic activity/Vol] 19 U/L Normal 15-37 [facility] Comment on above: Performed By: #### P T, PTT #### [facility] [address] [place] [address] Dr. Xiomy Lennon Bilirubin [Mass/Vol] 0.3 mg/dL Normal 0.2-1.0 [facility] Comment on above: Performed By: #### P T, PTT #### [facility] [address] [place] [address] Dr. Xiomy Lennon Calcium [Mass/Vol] 9.9 mg/dL Normal 8.5-10.1 [facility] Comment on above: Performed By: #### P T, PTT #### [facility] [address] [place] [address] Dr. Xiomy Lennon Chloride [Moles/Vol] 96 mmol/L Critically low 98-107 [facility] Comment on above: Performed By: #### P T, PTT #### [facility] [address] [place] [address] Dr. Xiomy Lennon CO2 [Moles/Vol] 34.6 mmol/L Critically high 21.0-32.0 [facility] Comment on above: Performed By: #### P T, PTT #### [facility] [address] [place] [address] Dr. Xiomy Lennon Creatinine [Mass/Vol] 0.93 mg/dL Normal 0.55-1.02 [facility] Comment on above: Performed By: #### P T, PTT #### [facility] [address] [address] [address] Xiomy Lennon EGFR-AF SALVADOREAN >60 Normal >=60 [facility] Comment on above: Performed By: #### P T, PTT #### [facility] [address] [address] [address] Xiomy Lennon EGFR-NON AF SALVADOREAN >60 Normal >=60 [facility] Comment on above: Performed By: #### P T, PTT #### [facility] [address] [address] [address] Xiomy Lennon Globulin (S) [Mass/Vol] 5.0 g/dL Normal [facility] Comment on above: Performed By: #### P T, PTT #### [facility] [address] [address] [address] Xiomy Lennon Glucose [Mass/Vol] 139 mg/dL Critically high 74-106 [facility] Comment on above: Performed By: #### P T, PTT #### [facility] [address] [address] [address] Xiomy Lennon Potassium [Moles/Vol] 4.0 mmol/L Normal 3.5-5.1 [facility] Comment on above: Performed By: #### P T, PTT #### [facility] [address] [address] [address] Xiomy Lennon Protein [Mass/Vol] 8.6 g/dL Critically high 6.4-8.2 [facility] Comment on above: Performed By: #### P T, PTT #### [facility] [address] [address] [address] Xiomy Lennon Sodium [Moles/Vol] 136 mmol/L Normal 136-145 [facility] Comment on above: Performed By: #### P T, PTT #### [facility] [address] [address] [address] Xiomy Lennon Urea nitrogen [Mass/Vol] 19.0 mg/dL Critically high 7.0-18.0 [facility] Comment on above: Performed By: #### P T, PTT #### [facility] [address] [place] [address] Dr. Xiomy Lennon Urea nitrogen/Creatinine [Mass ratio] 20.4 mg/mg Normal [facility] Comment on above: Performed By: #### P T, PTT #### [facility] [address] [place] [address] Dr. Xiomy Lennon PROTIMEon 03-26-2022 INR Coag (PPP) [Relative time] 0.99 {INR} Normal [facility] Comment on above: Performed By: #### P T, PTT #### [facility] [address] [place] [address] Dr. Xiomy Lennon INR GUIDELINES SEE BELOW Normal [facility] Comment on above: Result Comment: NIALL RED INR: 2.0 - 3.0 CONDITIONS NOT LISTED BELOW 2.5 - 3.5 FOR PROSTHETIC HEART VALVE REPLACEMENT 2.5 - 3.5 RECURRENT THROMBOSIS Performed By: #### P T, PTT #### [facility] [address] [place] [address] Dr. Xiomy Lennon PT Coag (PPP) [Time] 10.7 s Normal 9.0-11.6 [facility] Comment on above: Performed By: #### P T, PTT #### [facility] [address] [place] [address] Dr. Xiomy Lennon PTTon 03-26-2022 aPTT Coag (Bld) [Time] 26.9 s Normal 22.3-36.2 Th [facility] Comment on above: Performed By: #### P T, PTT #### [facility] [address] [place] [address] Dr. Xiomy Lennon TROPONIN, HIGH SENSITIVITYon 03-26-2022 HSTROP 8.0 pg/mL Normal 4.0-51.3 [facility] Comment on above: Result Comment: CUT- OFF POINTS HAVE BEEN ESTABLISHED BASED ON THE FOURTH UNIVERSAL DEFINITIONS OF MYOCARDIAL INFARCTION. THE UPPER REFERENCE LIMIT (URL) OF TROPONIN, DEFINED THE 99TH PERCENTILE OF cTnI DISTRIBUTION IN A REFERENCE POPULATION, HAS BEEN CONFIRMED THE DECISION THRESHOLD FOR RI DIAGNOSIS. Performed By: #### P T, PTT #### [facility] [address] [place] [address] Dr. Xiomy Lennon US SINGLE QUAD RT [...] by: KENDY HERRERA Date: 2022-03-26 19:58 Normal [facility] Basic Metabolic Panelon 07-01 Calcium [Mass/Vol] 9.3 mg/dL Normal 8.2-10.[address] [facility] Comment on above: Performed By: #### [place] [address] [facility] [place], SOFIANEG #### [facility] [address] [id number] [place] Chloride [Moles/Vol] 89 mmol/L Low 95-114 [facility] Comment on above: Performed By: #### C [address], COVID-19 VALDEMAR, SOFIANEG #### [facility] [address] [id number] [facility] CO2 [Moles/Vol] 35.4 mmol/L High 22.0-30.0 [facility] Comment on above: Performed By: #### [place] [address] [facility] [place], SOFIANEG #### [facility] [address] [place] [address] [place] Creatinine [Mass/Vol] 0.81 mg/dL Normal 0.44-1.03 [facility] Comment on above: Performed By: #### [place] [address] [facility] [place]DE[place], SOFIANEG #### [facility] [address] [place] [address] [place] Creatinine Clr Calc Pharmacy 107.64 [facility] Comment on above: Performed By: #### [place] [address] [facility] [place], SOFIANEG #### [facility] [address] [place] [address] [place] Estimated GFR ( Hilary > [address] [facility] Comment on above: Result Comment: GFR estimated reference range: According to KDOQI guidelines, <60 ml/min/1.73m2 is sufficient to diagnose a patient with chronic kidney disease. Performed By: #### C [place] [address] [facility] [place], SOFIANEG #### [facility] [address] [id number] [place] Estimated GFR (Non- Am > [address] [facility] Comment on above: Performed By: #### C [place] [address] [facility] [place], SOFIANEG #### [facility] [address] Glucose [Mass/Vol] 94 mg/dL Normal 70-[address] [facility] Comment on above: Result Comment: [place] Glucose Reference Range is dependent on time and content of last meal. Glucose of more than 200 mg/dL in a nonstressed, ambulatory subject supports the diagnosis of Diabetes Mellitus. ADA recommended reference range Performed By: #### C [place] [address] [facility] [place], SOFIANEG #### [facility] [address] Potassium Normal 3.5-5.[address] [facility] Comment on above: Result Comment: Spec imen hemolyzed, redraw requested Performed By: #### C [place] [address] [facility] [place], SOFIANEG #### [facility] [address] [id number] [place] Sodium [Moles/Vol] 135 mmol/L Low 136-[address] [facility] Comment on above: Performed By: #### C [place] [address] [facility] [place], COVID-19 VALDEMAR, SOFIANEG #### [facility] [address] [id number] [place] Urea nitrogen [Mass/Vol] 19 mg/dL Normal 9-[address] [facility] Comment on above: Performed By: #### C OVID 19 [facility] [place], SOFIANEG #### [facility] [address] Complete Blood Count Auto Di ffon 07-14-2021 Basophils (Bld) [#/Vol] 0.0 10*3/uL Normal 0.0-0.[address] [facility] Comment on above: Result Comment: PERF ORMED BY: [place] [address] PATHOLOGIST AUTOMOTIVE GLAZIER OTILIA BAIRD M.D. Performed By: #### C BC, LACTIC, HS TROP, BMP #### [address] Basophils/100 WBC (Bld) 0.5 % Normal . [facility] Comment on above: Performed By: #### C BC, LACTIC, HS TROP, BMP #### [address] Eosinophils (Bld) [#/Vol] 0.1 10*3/uL Normal 0.0-0.[address] [facility] Comment on above: Performed By: #### C BC, LACTIC, HS TROP, BMP #### [address] Eosinophils/100 WBC (Bld) 0.9 % Normal . [facility] Comment on above: Performed By: #### C BC, LACTIC, HS TROP, BMP #### [address] Erythrocyte distribution width (RBC) [Ratio] 18.2 % High 11.9-15.[address] [facility] Comment on above: Performed By: #### C BC, LACTIC, HS TROP, BMP #### [facility] [address] [place] [address] Hematocrit (Bld) [Volume fraction] 41.6 % Normal 34.0-46.[address] [facility] Comment on above: Performed By: #### C BC, LACTIC, HS TROP, BMP #### [facility] [address] [place] [address] Hemoglobin (Bld) [Mass/Vol] 13.8 g/dL Normal 11.8-15.[address] [facility] Comment on above: Performed By: #### C BC, LACTIC, HS TROP, BMP #### [address] Lymphocytes (Bld) [#/Vol] 1.5 10*3/uL Normal 1.00-4.[address] [facility] Comment on above: Performed By: #### C BC, LACTIC, HS TROP, BMP #### [address] Lymphocytes/100 WBC (Bld) 20.5 % Normal . [facility] Comment on above: Performed By: #### C BC, LACTIC, HS TROP, BMP #### [address] MCH (RBC) [Entitic mass] 29.0 pg Normal 24.7-34.[address] [facility] Comment on above: Performed By: #### C BC, LACTIC, HS TROP, BMP #### [address] MCV (RBC) [Entitic vol] 87.8 fL Normal 80-[address] [facility] Comment on above: Performed By: #### C BC, LACTIC, HS TROP, BMP #### [address] Mean Corpuscular HGB Conc 33.0 g/dL Normal 32.0-35.[address] [facility] Comment on above: Performed By: #### C BC, LACTIC, HS TROP, BMP #### [address] Monocytes (Bld) [#/Vol] 0.8 10*3/uL Normal 0.0-0.[address] [facility] Comment on above: Performed By: #### C BC, LACTIC, HS TROP, BMP #### [address] Monocytes/100 WBC (Bld) 11.4 % Normal . [facility] Comment on above: Performed By: #### C BC, LACTIC, HS TROP, BMP #### [address] [place] [address] [place] Neutrophils (Bld) [#/Vol] 4.8 10*3/uL Normal 1.8-7.[address] [facility] Comment on above: Performed By: #### C BC, LACTIC, HS TROP, BMP #### [facility] [address] [place] [address] [place] Neutrophils/100 WBC (Bld) 66.7 % Normal . [facility] Comment on above: Performed By: #### C BC, LACTIC, HS TROP, BMP #### [facility] [address] [place] [address] [place] Nucleated RBC/100 WBC (Bld) [Ratio] 0.1 % Normal 0-0.[address] [facility] Comment on above: Performed By: #### C BC, LACTIC, HS TROP, BMP #### [address] Platelet mean volume (Bld) [Entitic vol] 9.5 fL Normal 6.3-10.[address] [facility] Comment on above: Performed By: #### C BC, LACTIC, HS TROP, BMP #### [place] [address] [place] Platelets (Bld) [#/Vol] 153 10*3/uL Normal 150-[address] [facility] Comment on above: Performed By: #### C BC, LACTIC, HS TROP, BMP #### [place] [address] [place] RBC (Bld) [#/Vol] 4.74 10*6/uL Normal 3.60-5.00 [facility] Comment on above: Performed By: #### C BC, LACTIC, HS TROP, BMP #### [place] [address] [place] WBC (Bld) [#/Vol] 7.1 10*3/uL Normal 4.5-11.[address] [facility] Comment on above: Performed By: #### C BC, LACTIC, HS TROP, BMP #### [place] [address] [place] Glucose Poct Glucometerson 0 07-14-2021 Commemt1 Glu2: Cleaned Meter [facility] Comment on above: Result Comment: PERF ORMED BY: [facility] [address] [place] [address] PATHOLOGIST AUTOMOTIVE GLAZIER OTILIA BAIRD M.D. Performed By: #### C OVID 19 [facility] [place], SOFIANEG #### [facility] [address] [place] [id number] [place] Glucose [Mass/Vol] 130 mg/dL Normal [facility] Comment on above: Result Comment: [place] Glucose Reference Range is dependent on time and content of last meal. Glucose of more than 200 mg/dL in a nonstressed, ambulatory subject supports the diagnosis of Diabetes Mellitus. Performed By: #### C OVID 19 [facility] [place] VALDE[place], SOFIANEG #### [facility] [address] [place] [address] [place] Commemt1 Glu2: Cleaned Meter [facility] Comment on above: Result Comment: PERF ORMED BY: [facility] [address] [place] [address] PATHOLOGIST AUTOMOTIVE GLAZIER OTILIA BAIRD M.D. Performed By: #### C BC, LACTIC, HS TROP, BMP #### [address] [address] [place] Glucose [Mass/Vol] 102 mg/dL Normal [facility] Comment on above: Result Comment: [place] Glucose Reference Range is dependent on time and content of last meal. Glucose of more than 200 mg/dL in a nonstressed, ambulatory subject supports the diagnosis of Diabetes Mellitus. Performed By: #### C BC, LACTIC, HS TROP, BMP #### [facility] [address] [place] [address] [place] Commemt1 Glu2: Cleaned Meter [facility] Comment on above: Result Comment: PERF ORMED BY: [facility] [address] [place] [address] PATHOLOGIST AUTOMOTIVE GLAZIER OTILIA BAIRD M.D. Performed By: #### C BC, LACTIC, HS TROP, BMP #### [facility] [address] Glucose [Mass/Vol] 130 mg/dL Normal [facility] Comment on above: Result Comment: [facility] Glucose Reference Range is dependent on time and content of last meal. Glucose of more than 200 mg/dL in a nonstressed, ambulatory subject supports the diagnosis of Diabetes Mellitus. Performed By: #### C BC, LACTIC, HS TROP, BMP #### [address] Magnesiumon 07-14-2021 Magnesium Normal 1.6-2.[address] [facility] Comment on above: Result Comment: Spec imen hemolyzed, redraw requested PERFORMED BY: [place] [address] PATHOLOGIST AUTOMOTIVE GLAZIER OTILIA BAIRD M.D. Performed By: #### C OVID 19 [facility] [place], SOFIANEG #### [address] Redraw Magnesiumon 1 Magnesium [Mass/Vol] 1.9 mg/dL Normal 1.6-2.6 [facility] Comment on above: Order Comment: Speci men hemolyzed, redraw requested Result Comment: PERF ORMED BY: [place] [address] PATHOLOGIST AUTOMOTIVE GLAZIER OTILIA BAIRD M.D. Performed By: #### C OVID 19 [facility] [place] VALDE[place], SOFIANEG #### [address] Redraw Potassiumon 1 Potassium [Moles/Vol] 3.7 mmol/L Normal 3.5-5.1 [facility] Comment on above: Order Comment: Speci men hemolyzed, redraw requested Performed By: #### C OVID 19 [facility] [place]-19 VALDE[place], SOFIANEG #### [address] Basic Metabolic Panelon 07-01 Calcium [Mass/Vol] 9.3 mg/dL Normal 8.2-10.[address] [facility] Comment on above: Performed By: #### C BC, LACTIC, HS TROP, BMP #### [facility] [address] Chloride [Moles/Vol] 92 mmol/L Low 95-114 [facility] Comment on above: Performed By: #### C BC, LACTIC, HS TROP, BMP #### [facility] [address] CO2 [Moles/Vol] 37.7 mmol/L High 22.0-30.0 [facility] Comment on above: Performed By: #### C BC, LACTIC, HS TROP, BMP #### [address] Creatinine [Mass/Vol] 0.80 mg/dL Normal 0.44-1.03 [facility] Comment on above: Performed By: #### C BC, LACTIC, HS TROP, BMP #### [place] [address] [place] Creatinine Clr Calc Pharmacy 105.32 [facility] Comment on above: Result Comment: PERF ORMED BY: [place] [address] PATHOLOGIST AUTOMOTIVE GLAZIER OTILIA BAIRD M.D. Performed By: #### C BC, LACTIC, HS TROP, BMP #### [address] Estimated GFR ( Hilary > 60 [facility] Comment on above: Result Comment: GFR estimated reference range: According to KDOQI guidelines, <60 ml/min/1.73m2 is sufficient to diagnose a patient with chronic kidney disease. Performed By: #### C BC, LACTIC, HS TROP, BMP #### [facility] [address] Estimated GFR (Non- Am > 60 [facility] Comment on above: Performed By: #### C BC, LACTIC, HS TROP, BMP #### [address] [place] [address] [place] Glucose [Mass/Vol] 94 mg/dL Normal 70-[address] [facility] Comment on above: Result Comment: [place] Glucose Reference Range is dependent on time and content of last meal. Glucose of more than 200 mg/dL in a nonstressed, ambulatory subject supports the diagnosis of Diabetes Mellitus. ADA recommended reference range Performed By: #### C BC, LACTIC, HS TROP, BMP #### [address] Potassium [Moles/Vol] 3.6 mmol/L Normal 3.5-5.1 [facility] Comment on above: Performed By: #### C BC, LACTIC, HS TROP, BMP #### [address] Sodium [Moles/Vol] 139 mmol/L Normal 136-[address] [facility] Comment on above: Performed By: #### C BC, LACTIC, HS TROP, BMP #### [address] Urea nitrogen [Mass/Vol] 18 mg/dL Normal 9- [facility] Comment on above: Performed By: #### C BC, LACTIC, HS TROP, BMP #### [address] Glucose Poct Glucometerson 0 07-13-2021 Commemt1 Glu2: Cleaned Meter Normal [facility] Comment on above: Result Comment: PERF ORMED BY: [place] [address] PATHOLOGIST AUTOMOTIVE GLAZIER OTILIA BAIRD M.D. Performed By: #### C BC, LACTIC, HS TROP, BMP #### [place] [address] [place] Glucose [Mass/Vol] 180 mg/dL Normal [facility] Comment on above: Result Comment: [place] Glucose Reference Range is dependent on time and content of last meal. Glucose of more than 200 mg/dL in a nonstressed, ambulatory subject supports the diagnosis of Diabetes Mellitus. Performed By: #### C BC, LACTIC, HS TROP, BMP #### [address] Commemt1 Glu2: Cleaned Meter Normal [facility] Comment on above: Result Comment: PERF ORMED BY: [place] [address] PATHOLOGIST AUTOMOTIVE GLAZIER OTILIA BAIRD M.D. Performed By: #### C BC, LACTIC, HS TROP, BMP #### [address] Glucose [Mass/Vol] 128 mg/dL Normal [facility] Comment on above: Result Comment: [place] Glucose Reference Range is dependent on time and content of last meal. Glucose of more than 200 mg/dL in a nonstressed, ambulatory subject supports the diagnosis of Diabetes Mellitus. Performed By: #### C BC, LACTIC, HS TROP, BMP #### [address] Glucose [Mass/Vol] 95 mg/dL Normal [facility] Comment on above: Result Comment: [place] Glucose Reference Range is dependent on time and content of last meal. Glucose of more than 200 mg/dL in a nonstressed, ambulatory subject supports the diagnosis of Diabetes Mellitus. PERFORMED BY: [place] [address] PATHOLOGIST AUTOMOTIVE GLAZIER OTILIA BAIRD M.D. Performed By: #### C BC, LACTIC, HS TROP, BMP #### [address] Basic Metabolic Panelon 07-01 Calcium [Mass/Vol] 9.3 mg/dL Normal 8.2-10.[address] [facility] Comment on above: Performed By: #### C BC, LACTIC, HS TROP, BMP #### [address] Chloride [Moles/Vol] 86 mmol/L Low 95-114 [facility] Comment on above: Performed By: #### C BC, LACTIC, HS TROP, BMP #### [address] [place] [address] [place] CO2 [Moles/Vol] 43.4 mmol/L High 22.0-30.0 [facility] Comment on above: Performed By: #### C BC, LACTIC, HS TROP, BMP #### [facility] [address] Creatinine [Mass/Vol] 0.86 mg/dL Normal 0.44-1.03 [facility] Comment on above: Performed By: #### C BC, LACTIC, HS TROP, BMP #### [place] [address] [place] Creatinine Clr Calc Pharmacy 103.59 [facility] Comment on above: Result Comment: PERF ORMED BY: [place] [address] PATHOLOGIST AUTOMOTIVE GLAZIER OTILIA BAIRD M.D. Performed By: #### C BC, LACTIC, HS TROP, BMP #### [address] Estimated GFR ( Hilary > 60 [facility] Comment on above: Result Comment: GFR estimated reference range: According to KDOQI guidelines, <60 ml/min/1.73m2 is sufficient to diagnose a patient with chronic kidney disease. Performed By: #### C BC, LACTIC, HS TROP, BMP #### [address] Estimated GFR (Non- Am > 60 [facility] Comment on above: Performed By: #### C BC, LACTIC, HS TROP, BMP #### [place] [address] [place] Glucose [Mass/Vol] 94 mg/dL Normal 70-[address] [facility] Comment on above: Result Comment: [place] Glucose Reference Range is dependent on time and content of last meal. Glucose of more than 200 mg/dL in a nonstressed, ambulatory subject supports the diagnosis of Diabetes Mellitus. ADA recommended reference range Performed By: #### C BC, LACTIC, HS TROP, BMP #### [place] [address] [place] Potassium [Moles/Vol] 3.6 mmol/L Normal 3.5-5.1 [facility] Comment on above: Performed By: #### C BC, LACTIC, HS TROP, BMP #### [facility] [address] Sodium [Moles/Vol] 139 mmol/L Normal 136-[address] [facility] Comment on above: Performed By: #### C BC, LACTIC, HS TROP, BMP #### [facility] [address] Urea nitrogen [Mass/Vol] 18 mg/dL Normal 9- [facility] Comment on above: Performed By: #### C BC, LACTIC, HS TROP, BMP #### [facility] [address] Glucose Poct Glucometerson 0 07-12-2021 Glucose [Mass/Vol] 138 mg/dL Normal [facility] Comment on above: Result Comment: [place] Glucose Reference Range is dependent on time and content of last meal. Glucose of more than 200 mg/dL in a nonstressed, ambulatory subject supports the diagnosis of Diabetes Mellitus. PERFORMED BY: [place] [address] PATHOLOGIST AUTOMOTIVE GLAZIER OTILIA BAIRD M.D. Performed By: #### C BC, LACTIC, HS TROP, BMP #### [facility] [address] [place] [address] Commemt1 Glu2: Cleaned Meter Normal [facility] Comment on above: Result Comment: PERF ORMED BY: [place] [address] PATHOLOGIST AUTOMOTIVE GLAZIER OTILIA BAIRD M.D. Performed By: #### C BC, LACTIC, HS TROP, BMP #### [facility] [address] Glucose [Mass/Vol] 255 mg/dL Normal [facility] Comment on above: Result Comment: [place] Glucose Reference Range is dependent on time and content of last meal. Glucose of more than 200 mg/dL in a nonstressed, ambulatory subject supports the diagnosis of Diabetes Mellitus. Performed By: #### C BC, LACTIC, HS TROP, BMP #### [address] Commemt1 Glu2: Cleaned Meter [facility] Comment on above: Result Comment: PERF ORMED BY: [place] [address] PATHOLOGIST AUTOMOTIVE GLAZIER OTILIA BAIRD M.D. Performed By: #### C BC, LACTIC, HS TROP, BMP #### [address] Glucose [Mass/Vol] 133 mg/dL Normal [facility] Comment on above: Result Comment: [place] Glucose Reference Range is dependent on time and content of last meal. Glucose of more than 200 mg/dL in a nonstressed, ambulatory subject supports the diagnosis of Diabetes Mellitus. Performed By: #### C BC, LACTIC, HS TROP, BMP #### [address] Commemt1 Glu2: Cleaned Meter [facility] Comment on above: Result Comment: PERF ORMED BY: [place] [address] PATHOLOGIST AUTOMOTIVE GLAZIER OTILIA BAIRD M.D. Performed By: #### C BC, LACTIC, HS TROP, BMP #### [address] Glucose [Mass/Vol] 100 mg/dL Normal [facility] Comment on above: Result Comment: [place] Glucose Reference Range is dependent on time and content of last meal. Glucose of more than 200 mg/dL in a nonstressed, ambulatory subject supports the diagnosis of Diabetes Mellitus. Performed By: #### C BC, LACTIC, HS TROP, BMP #### [address] Basic Metabolic Panelon 07-01 Calcium [Mass/Vol] 9.5 mg/dL Normal 8.2-10.[address] [facility] Comment on above: Performed By: #### C BC, LACTIC, HS TROP, BMP #### [facility] [address] [place] [address] [place] Chloride [Moles/Vol] 85 mmol/L Low 95-114 [facility] Comment on above: Performed By: #### C BC, LACTIC, HS TROP, BMP #### [facility] [address] CO2 [Moles/Vol] 39.6 mmol/L High 22.0-30.0 [facility] Comment on above: Performed By: #### C BC, LACTIC, HS TROP, BMP #### [facility] [address] [place] [address] [place] Creatinine [Mass/Vol] 0.99 mg/dL Normal 0.44-1.03 [facility] Comment on above: Performed By: #### C BC, LACTIC, HS TROP, BMP #### [facility] [address] [place] [address] [place] Creatinine Clr Calc Pharmacy 89.99 [facility] Comment on above: Result Comment: PERF ORMED BY: [place] [address] PATHOLOGIST AUTOMOTIVE GLAZIER OTILIA BAIRD M.D. Performed By: #### C BC, LACTIC, HS TROP, BMP #### [facility] [address] Estimated GFR ( Hilary > 60 [facility] Comment on above: Result Comment: GFR estimated reference range: According to KDOQI guidelines, <60 ml/min/1.73m2 is sufficient to diagnose a patient with chronic kidney disease. Performed By: #### C BC, LACTIC, HS TROP, BMP #### [facility] [address] [place] [address] [place] Estimated GFR (Non- Am 58 [facility] Comment on above: Performed By: #### C BC, LACTIC, HS TROP, BMP #### [facility] [address] [place] [address] [place] Glucose [Mass/Vol] 189 mg/dL High 70-[address] [facility] Comment on above: Result Comment: [place] Glucose Reference Range is dependent on time and content of last meal. Glucose of more than 200 mg/dL in a nonstressed, ambulatory subject supports the diagnosis of Diabetes Mellitus. ADA recommended reference range Performed By: #### C BC, LACTIC, HS TROP, BMP #### [facility] [address] Potassium [Moles/Vol] 4.3 mmol/L Normal 3.5-5.1 [facility] Comment on above: Performed By: #### C BC, LACTIC, HS TROP, BMP #### [facility] [address] Sodium [Moles/Vol] 135 mmol/L Low 136-[address] [facility] Comment on above: Performed By: #### C BC, LACTIC, HS TROP, BMP #### [address] Urea nitrogen [Mass/Vol] 21 mg/dL Normal 9-[address] [facility] Comment on above: Performed By: #### C BC, LACTIC, HS TROP, BMP #### [address] Glucose Poct Glucometerson 0 07-11-2021 Commemt1 Glu2: Cleaned Meter [facility] Comment on above: Result Comment: PERF ORMED BY: [place] [address] PATHOLOGIST AUTOMOTIVE GLAZIER OTILIA BAIRD M.D. Performed By: #### C BC, LACTIC, HS TROP, BMP #### [address] Glucose [Mass/Vol] 202 mg/dL Normal [facility] Comment on above: Result Comment: [place] Glucose Reference Range is dependent on time and content of last meal. Glucose of more than 200 mg/dL in a nonstressed, ambulatory subject supports the diagnosis of Diabetes Mellitus. Performed By: #### C BC, LACTIC, HS TROP, BMP #### [address] Commemt1 Glu2: Cleaned Meter [facility] Comment on above: Result Comment: PERF ORMED BY: [place] [address] PATHOLOGIST AUTOMOTIVE GLAZIER OTILIA BAIRD M.D. Performed By: #### C BC, LACTIC, HS TROP, BMP #### [address] Glucose [Mass/Vol] 249 mg/dL Normal [facility] Comment on above: Result Comment: [place] Glucose Reference Range is dependent on time and content of last meal. Glucose of more than 200 mg/dL in a nonstressed, ambulatory subject supports the diagnosis of Diabetes Mellitus. Performed By: #### C BC, LACTIC, HS TROP, BMP #### [address] Commemt1 Glu2: Cleaned Meter Normal [facility] Comment on above: Result Comment: PERF ORMED BY: [place] [address] PATHOLOGIST AUTOMOTIVE GLAZIER OTILIA BAIRD M.D. Performed By: #### C BC, LACTIC, HS TROP, BMP #### [place] [address] [place] Glucose [Mass/Vol] 141 mg/dL Normal [facility] Comment on above: Result Comment: [place] Glucose Reference Range is dependent on time and content of last meal. Glucose of more than 200 mg/dL in a nonstressed, ambulatory subject supports the diagnosis of Diabetes Mellitus. Performed By: #### C BC, LACTIC, HS TROP, BMP #### [facility] [address] [place] [address] Commemt1 Glu2: Cleaned Meter [facility] Comment on above: Result Comment: PERF ORMED BY: [place] [address] PATHOLOGIST AUTOMOTIVE GLAZIER OTILIA BAIRD M.D. Performed By: #### C BC, LACTIC, HS TROP, BMP #### [place] [address] [place] Glucose [Mass/Vol] 103 mg/dL Normal [facility] Comment on above: Result Comment: [place] Glucose Reference Range is dependent on time and content of last meal. Glucose of more than 200 mg/dL in a nonstressed, ambulatory subject supports the diagnosis of Diabetes Mellitus. Performed By: #### C BC, LACTIC, HS TROP, BMP #### [facility] [address] [place] [address] Arterial Blood Gason 021 ABG Base Excess 17.0 mmol/L High -3.0-3.0 [facility] Comment on above: Performed By: #### C BC, LACTIC, HS TROP, BMP #### [facility] [address] ABG Frac Inspired O2 60 % Normal [facility] Comment on above: Performed By: #### C BC, LACTIC, HS TROP, BMP #### [address] ABG Oxygen Content 7.6 mmol/L Normal 6.6-9.[address] [facility] Comment on above: Performed By: #### C BC, LACTIC, HS TROP, BMP #### [facility] [address] [place] [address] ABG Oxygen Saturation 94.3 % Low 95.0-100.0 [facility] Comment on above: Performed By: #### C BC, LACTIC, HS TROP, BMP #### [facility] [address] [place] [address] ABG PCO2 90.7 mm[Hg] Off scale high 35.0-45.[address] [facility] Comment on above: Performed By: #### C BC, LACTIC, HS TROP, BMP #### [facility] [address] [place] [address] ABG PH 7.34 Low 7.35-7.[address] [facility] Comment on above: Performed By: #### C BC, LACTIC, HS TROP, BMP #### [facility] [address] [place] [address] ABG PO2 77.7 mm[Hg] Low 80.0-100.[address] [facility] Comment on above: Performed By: #### C BC, LACTIC, HS TROP, BMP #### [facility] [address] [place] [address] CO2 [Moles/Vol] 50.1 mmol/L High 23.0-27.0 [facility] Comment on above: Performed By: #### C BC, LACTIC, HS TROP, BMP #### [address] HCO3 (Bld) [Moles/Vol] 47.3 mmol/L High 23.0-29.0 [facility] Comment on above: Performed By: #### C BC, LACTIC, HS TROP, BMP #### [address] Respiratory Critical [facility] Comment on above: Result Comment: Crit ical Value called on: 07/10/2021 at 05:01 PERFORMED BY: [place] [address] PATHOLOGIST AUTOMOTIVE GLAZIER OTILIA BAIRD M.D. Performed By: #### C BC, LACTIC, HS TROP, BMP #### [address] Set Respiratory Rate 12 Normal [facility] [facility] Comment on above: Performed By: #### C BC, LACTIC, HS TROP, BMP #### [address] VBG Draw Site Right Radial Normal [facility] Comment on above: Performed By: #### C BC, LACTIC, HS TROP, BMP #### [address] Basic Metabolic Panelon 07-01 Calcium [Mass/Vol] 9.4 mg/dL Normal 8.2-10.[address] [facility] Comment on above: Performed By: #### C BC, LACTIC, HS TROP, BMP #### [address] Chloride [Moles/Vol] 88 mmol/L Low 95-114 [facility] Comment on above: Performed By: #### C BC, LACTIC, HS TROP, BMP #### [facility] [address] [place] [address] [place] CO2 [Moles/Vol] 41.2 mmol/L High 22.0-30.0 [facility] Comment on above: Performed By: #### C BC, LACTIC, HS TROP, BMP #### [facility] [address] [place] [address] [place] Creatinine [Mass/Vol] 0.74 mg/dL Normal 0.44-1.03 [facility] Comment on above: Performed By: #### C BC, LACTIC, HS TROP, BMP #### [facility] [address] [place] [address] [place] Creatinine Clr Calc Pharmacy 122.16 [facility] Comment on above: Result Comment: PERF ORMED BY: [place] [address] PATHOLOGIST AUTOMOTIVE GLAZIER OTILIA BAIRD M.D. Performed By: #### C BC, LACTIC, HS TROP, BMP #### [facility] [address] Estimated GFR ( Hilary > 60 [facility] Comment on above: Result Comment: GFR estimated reference range: According to KDOQI guidelines, <60 ml/min/1.73m2 is sufficient to diagnose a patient with chronic kidney disease. Performed By: #### C BC, LACTIC, HS TROP, BMP #### [facility] [address] Estimated GFR (Non- Am > 60 [facility] Comment on above: Performed By: #### C BC, LACTIC, HS TROP, BMP #### [facility] [address] Glucose [Mass/Vol] 94 mg/dL Normal 70-[address] [facility] Comment on above: Result Comment: [place] Glucose Reference Range is dependent on time and content of last meal. Glucose of more than 200 mg/dL in a nonstressed, ambulatory subject supports the diagnosis of Diabetes Mellitus. ADA recommended reference range Performed By: #### C BC, LACTIC, HS TROP, BMP #### [facility] [address] [place] [id number] [place] Potassium [Moles/Vol] 3.9 mmol/L Normal 3.5-5.1 [facility] Comment on above: Performed By: #### C BC, LACTIC, HS TROP, BMP #### [facility] [address] [place] [address] [place] Sodium [Moles/Vol] 138 mmol/L Normal 136-[address] [facility] Comment on above: Performed By: #### C BC, LACTIC, HS TROP, BMP #### [facility] [address] Urea nitrogen [Mass/Vol] 15 mg/dL Normal 9-[address] [facility] Comment on above: Performed By: #### C BC, LACTIC, HS TROP, BMP #### [facility] [address] ECH echo transthoracicon ECH echo transthoracic [facility] [place] [address] [place] [address] Echocardiogram Signed Patient: Aliya Moore MR#: [id number] : 1965 Acct:[id number] Age/Sex: 55 / F ADM Date: 07/09/21 Loc: Room: [address] [place] [address] Type: ADM IN Attending Dr: Colby Camara [...] MD 07/10/21 1037 Signed By: 07/10/21 1324 [facility] Glucose Poct Glucometerson 0 07-10-2021 Commemt1 Glu2: Cleaned Meter [facility] Comment on above: Result Comment: PERF ORMED BY: [place] [address] PATHOLOGIST AUTOMOTIVE GLAZIER OTILIA BAIRD M.D. Performed By: #### C BC, LACTIC, HS TROP, BMP #### [address] Glucose [Mass/Vol] 124 mg/dL Normal [facility] Comment on above: Result Comment: [place] om Glucose Reference Range is dependent on time and content of last meal. Glucose of more than 200 mg/dL in a nonstressed, ambulatory subject supports the diagnosis of Diabetes Mellitus. Performed By: #### C BC, LACTIC, HS TROP, BMP #### [address] Commemt1 Glu2: Cleaned Meter [facility] Comment on above: Result Comment: PERF ORMED BY: [place] [address] PATHOLOGIST AUTOMOTIVE GLAZIER OTILIA BAIRD M.D. Performed By: #### C BC, LACTIC, HS TROP, BMP #### [address] Glucose [Mass/Vol] 293 mg/dL Normal [facility] Comment on above: Result Comment: [place] om Glucose Reference Range is dependent on time and content of last meal. Glucose of more than 200 mg/dL in a nonstressed, ambulatory subject supports the diagnosis of Diabetes Mellitus. Performed By: #### C BC, LACTIC, HS TROP, BMP #### [facility] [address] [place] [address] Commemt1 Glu2: Cleaned Meter [facility] Comment on above: Result Comment: PERF ORMED BY: [place] [address] PATHOLOGIST AUTOMOTIVE GLAZIER OTILIA BAIRD M.D. Performed By: #### C BC, LACTIC, HS TROP, BMP #### [place] [id number] [facility] Glucose [Mass/Vol] 140 mg/dL Normal [facility] Comment on above: Result Comment: [place] om Glucose Reference Range is dependent on time and content of last meal. Glucose of more than 200 mg/dL in a nonstressed, ambulatory subject supports the diagnosis of Diabetes Mellitus. Performed By: #### C BC, LACTIC, HS TROP, BMP #### [facility] [address] Glucose [Mass/Vol] 105 mg/dL Normal [facility] Comment on above: Result Comment: [place] om Glucose Reference Range is dependent on time and content of last meal. Glucose of more than 200 mg/dL in a nonstressed, ambulatory subject supports the diagnosis of Diabetes Mellitus. PERFORMED BY: [place] [address] PATHOLOGIST AUTOMOTIVE GLAZIER OTILIA BAIRD M.D. Performed By: #### C BC, LACTIC, HS TROP, BMP #### [address] B-Type Natriuretic Peptideon 07-09-2021 Natriuretic peptide B (Bld) [Mass/Vol] 121.0 pg/mL High 5-[address] [facility] Comment on above: Result Comment: PERF ORMED BY: [place] [address] PATHOLOGIST AUTOMOTIVE GLAZIER OTILIA BAIRD M.D. Performed By: #### C BC, LACTIC, HS TROP, BMP #### [address] Basic Metabolic Panelon 0 Calcium [Mass/Vol] 9.0 mg/dL Normal 8.2-10.[address] [facility] Comment on above: Performed By: #### C BC, LACTIC, HS TROP, BMP #### [facility] [address] [place] [address] [place] Chloride [Moles/Vol] 92 mmol/L Low 95-114 [facility] Comment on above: Performed By: #### C BC, LACTIC, HS TROP, BMP #### [facility] [address] [place] [address] [place] CO2 [Moles/Vol] 36.9 mmol/L High 22.0-30.0 [facility] Comment on above: Performed By: #### C BC, LACTIC, HS TROP, BMP #### [facility] [address] Creatinine [Mass/Vol] 0.66 mg/dL Normal 0.44-1.03 [facility] Comment on above: Performed By: #### C BC, LACTIC, HS TROP, BMP #### [facility] [address] [place] [address] [place] Creatinine Clr Calc Pharmacy 137.69 [facility] Comment on above: Result Comment: PERF ORMED BY: [place] [address] PATHOLOGIST AUTOMOTIVE GLAZIER OTILIA BAIRD M.D. Performed By: #### C BC, LACTIC, HS TROP, BMP #### [address] Estimated GFR ( Hilary > 60 [facility] Comment on above: Result Comment: GFR estimated reference range: According to KDOQI guidelines, <60 ml/min/1.73m2 is sufficient to diagnose a patient with chronic kidney disease. Performed By: #### C BC, LACTIC, HS TROP, BMP #### [address] Estimated GFR (Non- Am > 60 [facility] Comment on above: Performed By: #### C BC, LACTIC, HS TROP, BMP #### [facility] [address] [place] [address] Glucose [Mass/Vol] 119 mg/dL High 70-[address] [facility] Comment on above: Result Comment: [place] Glucose Reference Range is dependent on time and content of last meal. Glucose of more than 200 mg/dL in a nonstressed, ambulatory subject supports the diagnosis of Diabetes Mellitus. ADA recommended reference range Performed By: #### C BC, LACTIC, HS TROP, BMP #### [facility] [address] Potassium [Moles/Vol] 4.5 mmol/L Normal 3.5-5.1 [facility] Comment on above: Performed By: #### C BC, LACTIC, HS TROP, BMP #### [facility] [address] [place] [id number] [place] Sodium [Moles/Vol] 137 mmol/L Normal 136-[address] [facility] Comment on above: Performed By: #### C BC, LACTIC, HS TROP, BMP #### [facility] [address] [place] [id number] [place] Urea nitrogen [Mass/Vol] 9 mg/dL Normal 9-[address] [facility] Comment on above: Performed By: #### C BC, LACTIC, HS TROP, BMP #### [facility] [address] COVID-19 Antigenon 1 COVID-19 [facility] [...] Disclaimer basis for treatment or patient management Vadlemar Disclaimer decisions, including infection control decisions. Valdemar [...] its performance Valdemar Disclaimer characteristic determined by [employer] and Valdemar Disclaimer validated at [facility]. This Valdemar Disclaimer test has not been [...] is terminated or revoked sooner. PERFORMED BY: [place] [address] PATHOLOGIST AUTOMOTIVE GLAZIER OTILIA BAIRD M.D. [facility] Comment on above: Performed By: #### C OVID 19 [facility] TEO ALDRICHEG #### [address] COVID-19 [facility] 07-09-2021 SARS-CoV-2 (COVID-19) RNA PANDA+probe Ql (Unsp spec) Negative Normal Negative [facility] Comment on above: Order Comment: Healt hcare Worker?: N Result Comment: Testing for SARS-CoV-2 by RT-PCR This test was developed and its performance characteristics determined by [employer] and validated at the [facility]. This test has not been FDA cleared [...] is terminated or revoked sooner. PERFORMED BY: [place] [address] PATHOLOGIST AUTOMOTIVE GLAZIER OTILIA BAIRD M.D. Performed By: #### C OVID 19 [facility] COVID-19 VALDEMAR, SOFIANEG #### [address] Complete Blood Count Auto Di ffon 07-09-2021 Basophils (Bld) [#/Vol] 0.0 10*3/uL Normal 0.0-0.[address] [facility] Comment on above: Result Comment: PERF ORMED BY: [facility] [address] [place] [address] PATHOLOGIST AUTOMOTIVE GLAZIER OTILIA BAIRD M.D. Performed By: #### C BC, LACTIC, HS TROP, BMP #### [address] Basophils/100 WBC (Bld) 0.4 % Normal . [facility] Comment on above: Performed By: #### C BC, LACTIC, HS TROP, BMP #### [address] Eosinophils (Bld) [#/Vol] 0.2 10*3/uL Normal 0.0-0.[address] [facility] Comment on above: Performed By: #### C BC, LACTIC, HS TROP, BMP #### [address] Eosinophils/100 WBC (Bld) 2.5 % Normal . [facility] Comment on above: Performed By: #### C BC, LACTIC, HS TROP, BMP #### [address] Erythrocyte distribution width (RBC) [Ratio] 18.9 % High 11.9-15.[address] [facility] Comment on above: Performed By: #### C BC, LACTIC, HS TROP, BMP #### [address] Hematocrit (Bld) [Volume fraction] 39.5 % Normal 34.0-46.[address] [facility] Comment on above: Performed By: #### C BC, LACTIC, HS TROP, BMP #### [address] Hemoglobin (Bld) [Mass/Vol] 12.8 g/dL Normal 11.8-15.[address] [facility] Comment on above: Performed By: #### C BC, LACTIC, HS TROP, BMP #### [address] Lymphocytes (Bld) [#/Vol] 0.7 10*3/uL Low 1.00-4.[address] [facility] Comment on above: Performed By: #### C BC, LACTIC, HS TROP, BMP #### [place] [address] [place] Lymphocytes/100 WBC (Bld) 9.3 % Normal . [facility] Comment on above: Performed By: #### C BC, LACTIC, HS TROP, BMP #### [address] MCH (RBC) [Entitic mass] 28.8 pg Normal 24.7-34.[address] [facility] Comment on above: Performed By: #### C BC, LACTIC, HS TROP, BMP #### [address] MCV (RBC) [Entitic vol] 89.1 fL Normal 80-[address] [facility] Comment on above: Performed By: #### C BC, LACTIC, HS TROP, BMP #### [address] Mean Corpuscular HGB Conc 32.4 g/dL Normal 32.0-35.[address] [facility] Comment on above: Performed By: #### C BC, LACTIC, HS TROP, BMP #### [address] Monocytes (Bld) [#/Vol] 0.7 10*3/uL Normal 0.0-0.[address] [facility] Comment on above: Performed By: #### C BC, LACTIC, HS TROP, BMP #### [address] Monocytes/100 WBC (Bld) 8.4 % Normal . [facility] Comment on above: Performed By: #### C BC, LACTIC, HS TROP, BMP #### [address] Neutrophils (Bld) [#/Vol] 6.4 10*3/uL Normal 1.8-7.[address] [facility] Comment on above: Performed By: #### C BC, LACTIC, HS TROP, BMP #### [place] [address] [place] Neutrophils/100 WBC (Bld) 79.4 % Normal . [facility] Comment on above: Performed By: #### C BC, LACTIC, HS TROP, BMP #### [address] Nucleated RBC/100 WBC (Bld) [Ratio] 0.2 % Normal 0-0.[address] [facility] Comment on above: Performed By: #### C BC, LACTIC, HS TROP, BMP #### [facility] [address] Platelet mean volume (Bld) [Entitic vol] 9.4 fL Normal 6.3-10.[address] [facility] Comment on above: Performed By: #### C BC, LACTIC, HS TROP, BMP #### [facility] [address] Platelets (Bld) [#/Vol] 138 10*3/uL Low 150-[address] [facility] Comment on above: Performed By: #### C BC, LACTIC, HS TROP, BMP #### [facility] [address] RBC (Bld) [#/Vol] 4.44 10*6/uL Normal 3.60-5.00 [facility] Comment on above: Performed By: #### C BC, LACTIC, HS TROP, BMP #### [address] WBC (Bld) [#/Vol] 8.0 10*3/uL Normal 4.5-11.[address] [facility] Comment on above: Performed By: #### C BC, LACTIC, HS TROP, BMP #### [address] D-Dimer High Sensitivityon 0 07-09-2021 D-Dimer High Sensitivity 247 ng/mL High 0-[address] [facility] Comment on above: Result Comment: The reference [...] patients due to co-morbid conditions. PERFORMED BY: [place] [address] PATHOLOGIST AUTOMOTIVE GLAZIER OTILIA BAIRD M.D. Performed By: #### C BC, LACTIC, HS TROP, BMP #### [facility] [address] [place] [id number] [place] ECG 12 lead ECGon 07-09-2021 ECG 12 lead ECG [facility] [place] [address] [place] [address] Electrocardiograph Report Signed Patient: Aliya Moore MR#: [id number] : 1965 Acct:[id number] Age/Sex: 55 / F ADM Date: 07/09/21 Loc: Room: [address] [place] [address] Type: ADM IN Attending Dr: Kirk Lopez [...] ECGs available Confirmed by CAROLEE ABDALLA DO ([id number]) on 07/09/2021 1:45:33 AM Referred By: Electronically Signed By:CAROLEE ABDALLA DO Transcribed By: MUS Signed By Carolee Abdalla DO 07/09 0145 [facility] Glucose Poct Glucometerson 0 07-09-2021 Commemt1 Glu2: Cleaned Meter [facility] Comment on above: Result Comment: PERF ORMED BY: [place] [address] PATHOLOGIST AUTOMOTIVE GLAZIER OTILIA BAIRD M.D. Performed By: #### C BC, LACTIC, HS TROP, BMP #### [facility] [address] [place] [address] Glucose [Mass/Vol] 154 mg/dL Normal [facility] Comment on above: Result Comment: [place] Glucose Reference Range is dependent on time and content of last meal. Glucose of more than 200 mg/dL in a nonstressed, ambulatory subject supports the diagnosis of Diabetes Mellitus. Performed By: #### C BC, LACTIC, HS TROP, BMP #### [facility] [address] [place] [address] [place] Glucose [Mass/Vol] 132 mg/dL Normal [facility] Comment on above: Result Comment: [place] om Glucose Reference Range is dependent on time and content of last meal. Glucose of more than 200 mg/dL in a nonstressed, ambulatory subject supports the diagnosis of Diabetes Mellitus. PERFORMED BY: [place] [address] PATHOLOGIST AUTOMOTIVE GLAZIER OTILIA BAIRD M.D. Performed By: #### C BC, LACTIC, HS TROP, BMP #### [address] Glucose [Mass/Vol] 176 mg/dL Normal [facility] Comment on above: Result Comment: [place] om Glucose Reference Range is dependent on time and content of last meal. Glucose of more than 200 mg/dL in a nonstressed, ambulatory subject supports the diagnosis of Diabetes Mellitus. PERFORMED BY: [place] [address] PATHOLOGIST AUTOMOTIVE GLAZIER OTILIA BAIRD M.D. Performed By: #### C BC, LACTIC, HS TROP, BMP #### [place] [address] [place] Glucose [Mass/Vol] 173 mg/dL Normal [facility] Comment on above: Result Comment: [place] om Glucose Reference Range is dependent on time and content of last meal. Glucose of more than 200 mg/dL in a nonstressed, ambulatory subject supports the diagnosis of Diabetes Mellitus. PERFORMED BY: [place] [address] PATHOLOGIST AUTOMOTIVE GLAZIER OTILIA BAIRD M.D. Performed By: #### G LULS #### Point of Care testing , Lactic Acidon 07-09-2021 Lactate [Moles/Vol] 0.6 mmol/L Normal 0.5-2.2 [facility] Comment on above: Result Comment: PERF ORMED BY: [address] [place] [address] PATHOLOGIST AUTOMOTIVE GLAZIER OTILAI BAIRD M.D. Performed By: #### C BC, LACTIC, HS TROP, BMP #### [address] Valdemar Ag Negativeon 07-09-20 21 Valdem[place] Ag Negative Negative Normal Negative [facility] Comment on above: Result Comment: This is a duplicate Valdemar SARS Antigen (ROWDY) result to be used for statistical tracking purpose only. PERFORMED BY: [place] [address] PATHOLOGIST AUTOMOTIVE GLAZIER OTILIA BAIRD M.D. Performed By: #### C OVID 19 [facility] COVID-19 VALDEMAR, SOFIANEG #### [address] Troponin I High Sensitivityo n 07-09-2021 Troponin I High Sensitivity 14 pg/mL Normal 0-[address] [facility] Comment on above: Result Comment: PERF ORMED BY: [place] [address] PATHOLOGIST AUTOMOTIVE GLAZIER OTILIA BAIRD M.D. Performed By: #### C BC, LACTIC, HS TROP, BMP #### [address] Venous Blood Gason CO2 [Moles/Vol] 40.3 mmol/L High 24.0-29.0 [facility] Comment on above: Performed By: #### V BG #### Point of Care testing , HCO3 (Bld) [Moles/Vol] 38.2 mmol/L High 23.0-29.0 [facility] Comment on above: Performed By: #### V BG #### Point of Care testing , Respiratory Critical Normal [facility] Comment on above: Result Comment: Crit ical Value called on: 07/08/2021 at 23:40 PERFORMED BY: [place] [address] PATHOLOGIST AUTOMOTIVE GLAZIER OTILIA BAIRD M.D. Performed By: #### V BG #### Point of Care testing , VBG Base Excess 9.9 mmol/L High -3.0-3.[address] [facility] Comment on above: Performed By: #### V BG #### Point of Care testing , VBG Draw Site Other Normal [facility] Comment on above: Performed By: #### V BG #### Point of Care testing , VBG Frac Inspired O2 70 % Normal [facility] Comment on above: Performed By: #### V BG #### Point of Care testing , VBG Oxygen Saturation 94.1 % Off scale high 73.0-76.[address] [facility] Comment on above: Performed By: #### V BG #### Point of Care testing , VBG PCO2 70.1 mm[Hg] High 38.0-50.[address] [facility] Comment on above: Performed By: #### V BG #### Point of Care testing , VBG PH Venous PH 7.35 Normal 7.32-7.43 [facility] Comment on above: Performed By: #### V BG #### Point of Care testing , VBG PO2 72.4 mm[Hg] High 35.0-45.[address] [facility] Comment on above: Performed By: #### V BG #### Point of Care testing , XR chest 1V portableon 07-09 XR chest 1V portable [facility] [place] [address] XRay Report Signed Patient: Aliya Moore MR#: [id number] : 1965 Acct:[id number] Age/Sex: 55 / F ADM Date: 07/09/21 Loc: Room: [address] [place] [address] Type: ADM IN Attending Dr: Kirk Lopez [...] Sheldon Khan M.D.07/09/2021 8:33 AM Dictation Location: [place] [address] Transcribed By: [facility] 07/09/21832 Dictated By: Sheldon Khan DO 07/09/21831 Signed By: 07/09/21832 [facility] Cardiovascular Lab Reporton 06-15-2021 Cardiovascular Lab Report [facility] Patient Name: Teresa [facility] Connie MR #: [id number] Department of Physician: Boo Landers M.D. Division of Service Date: 06/15/2021 Cardiology Birthdate: 1965 Adult Cardiovascular Room #: [place] [address] Cardiovascular Laboratory Report IMPRESSIONS: 1. Mild disease [...] management; given mild coronary artery disease, aspirin, kvxalrvs-kw-hfoa intensity statin therapy, beta-aleks, and angiotensin-convertin g enzyme inhibitor are indicated. 4. Follow up with nurse Monico practitioner in the next 2 to 3 months. 5. Follow up with her family physician as scheduled. PROCEDURES: Ultrasound-guided access to the right common femoral vein, ultrasound-guided access to the right common femoral artery, right heart catheterization, bilateral selective coronary angiography, placement of a 6-Colombian MynxGrip closure device. METHODS: After risks, benefits, [...] femoral vein and artery was obtained. A 6-Colombian 11 cm sheath was placed in each. [...] the procedure. All catheters were removed. A 6-Colombian MynxGrip closure device was deployed per protocol [...] P Marlene Soto M.D. Date Dict: 06/15/2021/10:44 A/Marlene Soto M.D. Date Trans: 06/15/2021 11:37 A/sofía [id number] cc: Toshia Sam, MSN, BUS REPAIR SUPERVISOR-C Department Of Surgery [place] [address] [facility] [address] [address] [facility] Vital Signs Date Time Vital Sign Value Performing Clinician Facility 01-16-2024 11:17-0400 Body temperature 97.7 [degF] [facility] 01-16-2024 11:17-0400 Diastolic blood pressure 73 mm[Hg] [facility] 01-16-2024 11:17-0400 Heart rate 109 /min [facility] 01-16-2024 11:17-0400 Mean blood pressure 92 mm[Hg] [facility] 01-16-2024 11:17-0400 Respiratory rate 18 /min [facility] 01-16-2024 11:17-0400 SaO2% (BldA) [Mass fraction] 94 % [facility] 01-16-2024 11:17-0400 Systolic blood pressure 130 mm[Hg] Mariama Barcenas [facility] 12-05-2023 08:48-0500 Body height 175.3 cm Brea Jj NP Work Phone: [facility] 12-05-2023 08:48-0500 Body mass index (BMI) [Ratio] 37.51 kg/m2 Brea Applez LEAD DESIGNER Work Phone: [facility] 12-05-2023 08:48-0500 Body temperature 97.11 [degF] Brea Applez LEAD DESIGNER Work Phone: [facility] 12-05-2023 08:48-0500 Body weight 115.21 kg Brea Applez LEAD DESIGNER Work Phone: [facility] 12-05-2023 08:48-0500 Diastolic blood pressure 68 mm[Hg] Brea Cheleholz LEAD DESIGNER Work Phone: [facility] 12-05-2023 08:48-0500 Heart rate 103 /min Breayasmany Elaineholz LEAD DESIGNER Work Phone: [facility] 12-05-2023 08:48-0500 Respiratory rate 17 /min Breayasmany Applez LEAD DESIGNER Work Phone: [facility] 12-05-2023 08:48-0500 SaO2% (BldA) [Mass fraction] 99 % Breayasmany Applez LEAD DESIGNER Work Phone: [facility] 12-05-2023 08:48-0500 Systolic blood pressure 110 mm[Hg] Brea Applez LEAD DESIGNER Work Phone: [facility] 09-25-2023 21:50-0500 Diastolic blood pressure 73 mm[Hg] Demond Avni [facility] 09-25-2023 21:50-0500 Heart rate 95 /min Demond Avni [facility] 09-25-2023 21:50-0500 Mean blood pressure 90 mm[Hg] Demond Avni [facility] 09-25-2023 21:50-0500 Respiratory rate 22 /min Demond Avni [facility] 09-25-2023 21:50-0500 SaO2% (BldA) [Mass fraction] 97 % Demond Avni [facility] 09-25-2023 21:50-0500 Systolic blood pressure 123 mm[Hg] Demond Avni [facility] 09-25-2023 20:37-0500 Diastolic blood pressure 77 mm[Hg] Demond Avni [facility] 09-25-2023 20:37-0500 Heart rate 94 /min Demond Avni [facility] 09-25-2023 20:37-0500 Mean blood pressure 99 mm[Hg] Demond Avni [facility] 09-25-2023 20:37-0500 Respiratory rate 18 /min Demond Avni [facility] 09-25-2023 20:37-0500 SaO2% (BldA) [Mass fraction] 97 % Demond Avni [facility] 09-25-2023 20:37-0500 Systolic blood pressure 144 mm[Hg] Demond Avni [facility] 09-25-2023 19:50-0500 Diastolic blood pressure 83 mm[Hg] Demond Avni [facility] 09-25-2023 19:50-0500 Heart rate 100 /min Demond Avni [facility] 09-25-2023 19:50-0500 Mean blood pressure 104 mm[Hg] Demond Avni [facility] 09-25-2023 19:50-0500 Respiratory rate 22 /min Demond Avni [facility] 09-25-2023 19:50-0500 SaO2% (BldA) [Mass fraction] 98 % Demond Avni [facility] 09-25-2023 19:50-0500 Systolic blood pressure 147 mm[Hg] Demond Avni [facility] 09-25-2023 18:23-0500 Body temperature 98.24 [degF] Demond Avni [facility] 09-25-2023 18:23-0500 Heart rate 111 /min Demond Avni [facility] 09-25-2023 18:23-0500 Respiratory rate 24 /min Demond Avin [facility] 09-08-2023 20:26-0500 Body temperature 98.06 [degF] Ramses Reginaldo [facility] 09-08-2023 20:26-0500 Diastolic blood pressure 76 mm[Hg] Ramses Hair [facility] 09-08-2023 20:26-0500 Heart rate 81 /min Ramses Hair [facility] 09-08-2023 20:26-0500 Mean blood pressure 87 mm[Hg] Ramses Hair [facility] 09-08-2023 20:26-0500 Respiratory rate 20 /min Ramses Hair [facility] 09-08-2023 20:26-0500 SaO2% (BldA) [Mass fraction] 99 % Ramses Hair [facility] 09-08-2023 20:26-0500 Systolic blood pressure 110 mm[Hg] Ramses Reginaldo [facility] 09-08-2023 19:28-0500 Diastolic blood pressure 61 mm[Hg] Ramses Hair [facility] 09-08-2023 19:28-0500 Heart rate 86 /min Ramses Hair [facility] 09-08-2023 19:28-0500 Mean blood pressure 82 mm[Hg] Ramses Reginaldo [facility] 09-08-2023 19:28-0500 Respiratory rate 18 /min Ramses Reginaldo [facility] 09-08-2023 19:28-0500 SaO2% (BldA) [Mass fraction] 99 % Ramses Reginaldo [facility] 09-08-2023 19:28-0500 Systolic blood pressure 123 mm[Hg] Ramses Reginaldo [facility] 09-08-2023 18:00-0500 Diastolic blood pressure 75 mm[Hg] Ramses Reginaldo [facility] 09-08-2023 18:00-0500 Heart rate 92 /min Ramses Reginalod [facility] 09-08-2023 18:00-0500 SaO2% (BldA) [Mass fraction] 91 % Ramses Reginaldo [facility] 09-08-2023 18:00-0500 Systolic blood pressure 124 mm[Hg] Ramses Reginaldo [facility] 09-08-2023 16:33-0500 Body temperature 98.24 [degF] Ramses Reginaldo [facility] 09-08-2023 16:33-0500 Heart rate 104 /min Ramses Reginaldo [facility] 09-08-2023 16:33-0500 Respiratory rate 24 /min Ramses Reginaldo [facility] 07-19-2023 09:00-0400 Blood Pressure Location [facility] 07-19-2023 09:00-0400 Body temperature 98.06 [degF] d Al-Marrawi [facility] 07-19-2023 09:00-0400 Diastolic blood pressure 72 mm[Hg] Mhd Al-Marrawi [facility] 07-19-2023 09:00-0400 Heart rate 79 /min Mhd Al-Marrawi [facility] 07-19-2023 09:00-0400 Mean blood pressure 88 mm[Hg] d Al-Marrawi [facility] 07-19-2023 09:00-0400 Respiratory rate 18 /min d Al-Marrawi [facility] 07-19-2023 09:00-0400 SaO2% (BldA) [Mass fraction] 93 % [facility]-Marrawi [facility] 07-19-2023 09:00-0400 Systolic blood pressure 120 mm[Hg] d Al-Marrawi [facility] 06-28-2023 10:00-0400 Blood Pressure Location [facility] 06-28-2023 10:00-0400 Body temperature 98.06 [degF] [facility] 06-28-[facility] 10:00-0400 Diastolic blood pressure 69 mm[Hg] [facility] 06-28-[facility] 10:00-0400 Heart rate 101 /min [facility] 06-28-2023 10:00-0400 Mean blood pressure 90 mm[Hg] [facility] 10:00-0400 Respiratory rate 16 /min [facility] 06-28-2023 10:00-0400 SaO2% (BldA) [Mass fraction] 92 % [facility] 06-28-2023 10:00-0400 Systolic blood pressure 133 mm[Hg] Ezekiel Christian [facility] 06-17-2023 17:06-0400 Hourly Rounding Mbanefo OJUKWU [facility] 06-17-2023 17:06-0400 Promise to Return Mbanefo OJUKWU [facility] 06-17-2023 16:00-0400 Hourly Rounding Mbanefo OJUKWU [facility] 06-17-2023 16:00-0400 Promise to Return Mbanefo OJUKWU [facility] 06-17-2023 15:42-0400 Heart rate 82 /min Mbanefo OJUKWU [facility] 06-17-2023 15:42-0400 SaO2% (BldA) [Mass fraction] 95 % Mbanefo OJUKWU [facility] 06-17-2023 15:42-0400 Diastolic blood pressure 64 mm[Hg] Mbanefo OJUKWU [facility] 06-17-2023 15:42-0400 Mean blood pressure 79 mm[Hg] Mbanefo OJUKWU [facility] 06-17-2023 15:42-0400 Systolic blood pressure 109 mm[Hg] Mbanefo OJUKWU [facility] 06-17-2023 15:41-0400 Body temperature 97.88 [degF] Mbanefo OJUKWU [facility] 06-17-2023 15:05-0400 Hourly Rounding Mbanefo OJUKWU [facility] 06-17-2023 15:05-0400 Promise to Return Mbanefo OJUKWU [facility] 06-17-2023 14:00-0400 SaO2% (BldA) [Mass fraction] 96 % Mbanefo OJUKWU [facility] 06-17-2023 12:53-0400 Heart rate 87 /min Mbanefo OJUKWU [facility] 06-17-2023 12:53-0400 Respiratory rate 18 /min Mbanefo OJUKWU [facility] 06-17-2023 12:48-0400 SaO2% (BldA) [Mass fraction] 95 % Mbanefo OJUKWU [facility] 06-17-2023 12:44-0400 Heart rate 86 /min Mbanefo OJUKWU [facility] 06-17-2023 12:44-0400 Respiratory rate 18 /min Mbanefo OJUKWU [facility] 06-17-2023 12:00-0400 Diastolic blood pressure 66 mm[Hg] Mbanefo OJUKWU [facility] 06-17-2023 12:00-0400 Mean blood pressure 86 mm[Hg] Mbanefo OJUKWU [facility] 06-17-2023 12:00-0400 Systolic blood pressure 125 mm[Hg] Mbanefo OJUKWU [facility] 06-17-2023 09:19-0400 Diastolic blood pressure 71 mm[Hg] Mbanefo OJUKWU [facility] 06-17-2023 09:19-0400 Systolic blood pressure 134 mm[Hg] Mbanefo OJUKWU [facility] 06-17-2023 09:16-0400 gluc 173 mg/dL Mbanefo OJUKWU [facility] 06-17-2023 07:33-0400 Mean blood pressure 90 mm[Hg] Mbanefo OJUKWU [facility] 06-17-2023 07:33-0400 Body temperature 97.88 [degF] Mbanefo OJUKWU [facility] 06-17-2023 04:00-0400 Blood Pressure Location Mbanefo OJUKWU [facility] 06-17-2023 04:00-0400 Body temperature 98.24 [degF] Mbanefo OJUKWU [facility] 06-17-2023 04:00-0400 Mean blood pressure 91 mm[Hg] Mbanefo OJUKWU [facility] 06-17-2023 00:00-0400 Body temperature 97.88 [degF] Mbanefo OJUKWU [facility] 06-16-2023 22:48-0400 Blood Pressure Location Mbanefo OJUKWU [facility] 06-16-2023 22:48-0400 Body temperature 98.24 [degF] Mbanefo OJUKWU [facility] 06-16-2023 22:48-0400 Heart rate 80 /min Mbanefo OJUKWU [facility] 06-16-2023 21:42-0400 Mean blood pressure 76 mm[Hg] Mbanefo OJUKWU [facility] 06-16-2023 21:42-0400 Respiratory rate 18 /min Mbanefo OJUKWU [facility] 06-16-2023 20:45-0400 Mean blood pressure 95 mm[Hg] Mbanefo OJUKWU [facility] 06-16-2023 20:45-0400 Respiratory rate 18 /min Mbanefo OJUKWU [facility] 06-16-2023 19:39-0400 Respiratory rate 18 /min Mbanefo OJUKWU [facility] 06-16-2023 15:51-0400 Heart rate 107 /min Mbanefo OJUKWU [facility] 06-16-2023 15:51-0400 Respiratory rate 22 /min Mbanefo OJUKWU [facility] Encounters Encounter Date Encounter Type Care Provider Facility Start: 02-21-2024 End: 02-21-2024 ambulatory BREA AICHHOLZ Not Available Start: 01-16-2024 End: 01-17-2024 ambulatory Mariama Barcenas Facility:[facility] Start: 01-16-2024 End: 01-16-2024 Patient encounter procedure Mariama Barcenas [facility] Start: 01-10-2024 End: 01-10-2024 ambulatory BREA AICHHOLZ Not Available Start: 01-09-2024 End: 01-10-2024 ambulatory Mhd Yaser Al-Marrawi Facility:[facility] Start: 01-09-2024 End: 01-09-2024 Patient encounter procedure Mhd Yaser Al-Marrawi [facility] Start: 12-08-2023 Refill Brea Aichholz LEAD DESIGNER Work Phone: [facility] Comment on above: Anxiety and depressi on (CMS/HCC) (Primary Dx); Type 2 diabetes mellitus without complication, without long-term current use of insulin (CMS/HCC); Arthritis Start: 12-05-2023 End: 12-05-2023 ambulatory BREA AICHHOLZ Not Available Start: 12-05-2023 End: 12-05-2023 Office outpatient visit 25 minutes Brea Aichholz LEAD DESIGNER Work Phone: [facility] Comment on above: Other insomnia (Prim fay Dx); ROLANDO (obstructive sleep apnea); COPD mixed type (CMS/HCC); Tobacco dependence syndrome; BMI 37.0-37.9, adult; Anxiety and depression (CMS/HCC); Restless leg syndrome Start: 10-19-2023 End: 10-19-2023 ambulatory BREA AICHHOLZ Not Available Start: 09-25-2023 End: 09-25-2023 Emergency department patient visit Moses Fischer Facility:[facility] Start: 09-25-2023 End: 09-25-2023 Emergency department patient visit Demond Holly [facility] Start: 09-08-2023 End: 09-08-2023 Emergency department patient visit Ramses Hair Facility:[facility] Start: 09-08-2023 End: 09-08-2023 Emergency department patient visit Ramses Hair [facility] Start: 07-20-2023 End: 07-20-2023 ambulatory EHAB [facility] Start: 07-19-2023 End: 07-20-2023 ambulatory Mhd Ryan Bob Facility:[facility] Start: 07-19-2023 End: 07-19-2023 Patient encounter procedure Mhd Ryan Bob [facility] Start: 06-28-2023 End: 06-29-2023 ambulatory Mhd Yaser Al-Marrawi Facility:[facility] Start: 06-28-2023 End: 06-29-2023 ambulatory Mhd Yaser Al-Marrawi Facility:[facility] Start: 06-28-2023 End: 06-28-2023 Patient encounter procedure Ezekiel Christian [facility] Start: 06-16-2023 End: 06-17-2023 ambulatory Mbaneclovis OVIDHIWU Facility:[facility] Start: 06-16-2023 End: 06-17-2023 Observation Alex OVIDHIWU [facility] Start: 02-23-2023 End: 02-23-[address] SHELDON CARVAJAL . Facility:[facility] Start: 02-01-2023 End: 02-02-2023 ambulatory CORRINA GAINES . Facility:[facility] Start: 01-12-2023 End: 01-13-2023 ambulatory [employer] LAYOUT DESIGNER BREA AICHHOLZ Facility:[facility] Start: 01-03-2023 End: 01-04-2023 ambulatory [employer] LAYOUT DESIGNER BREA AICHHOLZ Facility:[facility] Start: 12-24-2022 End: 12-24-2022 ambulatory TOSHIA SAM [facility] Start: 11-04-2022 End: 11-05-2022 ambulatory [employer] LAYOUT DESIGNER BREA AICHHOLZ Facility:[facility] Start: 07-28-2022 End: 07-29-2022 ambulatory [employer] LAYOUT DESIGNER BREA AICHHOLZ Facility:[facility] Start: 04-30-2022 End: 05-01-2022 ambulatory [employer] LAYOUT DESIGNER BREA AICHHOLZ Facility:[facility] Start: 03-26-2022 End: 03-26-2022 ambulatory [employer] LAYOUT DESIGNER BREA AICHHOLZ Facility:[facility] Start: 06-15-2021 End: 06-16-2021 ambulatory TOSHIA SAM Facility:[facility] Procedures Date Procedure Procedure Detail Performing Clinician Start: 04-14-2023 Mammography Brea Paula mcmahon LEAD DESIGNER Work Phone: Start: 03-31-2020 Colonoscopy Brea Paula mcmahon LEAD DESIGNER Work Phone: Start: 05-05-1987 section Elijah Christian Start: 06-20-1984 section Elijah Christian Cyst (disorder) Ezekiel Allen solorzano Comment on above: Removal of cyst of r ight foot. Knee region structur e (body structure) Ezekiel Anahi Comment on above: surgery Plan of Treatment Date Care Activity Detail Author Start: 03-31-2030 Screening for malign ant neoplasm of colon [facility] Start: 06-23-2028 Screening for malign ant neoplasm of cervix [facility] Start: 01-29-2025 Glaucoma screening Diabetes: R etinopathy Screening [facility] Start: 04-29-2024 Influenza vaccination Influenza Vacc ine (#1) [facility] Comment on above: Postponed from 07/01 (Patient Refused) Start: 04-14-2024 Screening for malign ant neoplasm of breast Mammogram [facility] Start: 04-14-2024 Urine screening for protein Diabetes: Urine Protein Screening [facility] Start: 01-25-2024 Hemoglobin A1c measurement Diabetes: Hemoglobin A1C [facility] Start: 01-10-2024 End: 01-10-2024 Patient encounter procedure 01/10/2024 9:00 AM EDT Office Visit [facility] [address] [place] [id number] Brea Jj, TOBIAS [address] [place] [id number] [facility] Start: 1985 Screening for malign ant neoplasm of cervix Pap Smear [facility] Start: 1964 Screening for malign ant neoplasm of colon [facility] Payers Date Payer Category Payer Medicaid [employer] [employer] [id number] 2020-Present [address] [place] [address] [id number] 1964 Unknown [id number] 2.16.840.1.686682.3.579.2.647 1964 Unknown [id number] 2.16.840.1.734778.3.579.2.593 1964 Unknown [id number] 2.16.840.1.504759.3.579.2.593 1964 Unknown [id number] 2.16.840.1.023894.3.579.2.593 1964 Unknown [id number] 2.16.840.1.272910.3.579.2.593 1964 Unknown [id number] 2.16.840.1.676794.3.579.2.593 1964 Unknown [id number] 2.16.840.1.566200.3.579.2.593 1964 Unknown [id number] 2.16.840.1.387575.3.579.2.593 1964 Unknown [id number] 2.16.840.1.838391.3.579.2.593 1964 Unknown [id number] 2.16.840.1.025215.3.579.2.727 1964 Unknown [id number] 2.16.840.1.930906.3.579.2.727 1964 Unknown [id number] 2.16.840.1.858061.3.579.2.727 1964 Unknown [id number] 2.16.840.1.460859.3.579.2.727 1964 Unknown [id number] 2.16.840.1.805609.3.579.2.727 1964 Unknown [id number] 2.16.840.1.995508.3.579.2.727 1964 Unknown [id number] 2.16.840.1.547698.3.579.2.727 1964 Unknown [id number] 2.16.840.1.578103.3.579.2.727 1964 Unknown [id number] 2.16.840.1.433954.3.579.2.727 1964 Unknown [id number] 2.16.840.1.885591.3.579.2.1259 1964 Unknown [id number] 2.16.840.1.568301.3.579.2.9 1964 Unknown [id number] 2.16.840.1.144420.3.579.2.1259 1964 Unknown [id number] 2.16.840.1.257651.3.579.2.9 1959 Unknown [id number] Social History Date Type Detail Facility Tobacco Former smoker [facility] Comment on above: 1/2 pack a day Tobacco smoking status No Smokin g Status Entered [facility] Start: 04-21-2023 End: 12-05-2023 Sex Assigned At Female [facility] Start: 06-28-2023 End: 10-19-2023 Tobacco smoking status Ex-smoker (finding) [facility] Comment on above: Quit 06/19/23 1/2 pack a day History of tobacco use Current smoker [facility] History of tobacco use Cigarette Smoker [facility] Start: 10-19-2023 End: 12-05-2023 Cigarettes smoked current (pack per day) - Reported 1 [facility] Start: 10-19-2023 Tobacco use and exposure Smokeless tobacco non-user [facility] Start: 12-05-2023 Alcohol intake Lifetime non-d mary (finding) [facility] How often to you hav e a drink containing alcohol? Never [facility] How many standard drinks containing alcohol do you have on a typical day? Patient does not drink [facility] Start: 10-19-2023 Tobacco Comment 11-20 cigarettes/day [facility] Start: 10-19-2023 Alcohol Comment caffeine 2-3 c ups per day [facility] Start: 1965 Sex Assigned At Female [facility] Start: 04-20-2023 Gender identity Identifies as female gender (finding) [facility] Start: 04-20-2023 Sexual orientation Heterosexual (milvia bustamante) [facility] Medical Equipment Procedure Code Equipment Code Equipment Origin al Text Equipment Identifier Dates USE ONCE DAILY A S DIRECTED [id number] Start: 03-17-2023 Functional Status Date Assessment Result Facility 09-25-2023 Functional Status N/A [facility] 09-08-2023 Functional Status N/A [facility] 06-16-2023 Functional Status N/A [facility] 06-16-2023 Functional Status [facility] Clinical Notes 12-24-2022 to 01-16-2024 Brea Jj, TOBIAS - 12/05/2023 9:41 AM ESTBrea Jj, TOBIAS - 12/05/2023 9:41 AM ESTJacquelinesa Анна, LEAD DESIGNER - 12/05/2023 9:40 AM ESTLisa Анна, LEAD DESIGNER - 12/05/2023 9:40 AM EST Note Date & Type Note Facility 01-16-2024 Evaluation + Plan note Diagnostic Tests PendingMethylmalonic Acid 01/16/24 [facility] 12-05-2023 History of Present illness Narrative Associated Problem(s): Anxiety and depression [...] not sleeping, pt states not at all Aliya Moore is a 58 y.o. female presents [...] (MIRAPEX) 0.5 mg, Oral, Nightly theophylline ER (Farnki-Dur) 300 MG 12 hr tablet TAKE 1 [...] Medical History: Diagnosis Date Anxiety and depression ([facility]) 10/12/2023 Arthritis Class 2 severe obesity due to excess calories with serious comorbidity in adult ([facility]) 10/19/2023 COPD (chronic obstructive pulmonary disease) ([facility]) Fibrocystic breast disease Mixed hyperlipidemia ([facility]) 10/12/2023 ROLANDO (obstructive sleep apnea) Other insomnia 10/19/2023 Primary hypertension ([facility]) 10/12/2023 Restless leg syndrome 10/12/2023 Type 2 diabetes mellitus without complication, without long-term current use of insulin ([facility]) 10/19/2023 Past Surgical History: Procedure Laterality Date [...] BMI 37.0-37.9, adult documented in this encounter [facility] 09-25-2023 Hospital Discharge instructions Patient Education 09/25/2023 21:57:45 Cholelithiasis Cholelithiasis [...] Follow these instructions at home: Medicines Take brnv-zer-retaljp and prescription medicines only as told by [...] important. Where to find more information [employer] [place] [employer] and [employer]estive and Kidney Diseases: [...] provider. Document Revised: 09/08/2020 Document Reviewed: 09/08/2020 [employer] Patient Education 2022 [employer] Follow Up Care 09/25/2023 18:11:16 With:[facility] Address: [address] [place] [address] [address], [address] [place] [phone] Business (1) When:09/28/2023 21:47:26 With:BREA АННА Address: [address] [place] [address] [phone] Business (1) When:Within 3 Day(s) [facility] 09-25-2023 Evaluation + Plan note Extrac [...] Comprehensive Metabolic Panel 12/27/23 * D-Dimer 12/27/23 [facility]11-09-2023 Hospital Discharge instructions Patient Education 09/08/2023 [...] Follow these instructions at home: Medicines Take hmgn-mvj-veewkbo and prescription medicines only as told by [...] provider. Document Revised: 12/31/2021 Document Reviewed: 12/31/2021 [employer] Patient Education 2022 [employer]. Follow Up Care 09/08/2023 16:32:40 With:BREA JJ Address: [address] [place] [phone] Business (1) When:Within 3 Day(s) [facility]11-09-2023 Evaluation + Plan noteExtracted from: Title:ED [...] Comprehensive Metabolic Panel 12/27/23 * D-Dimer 12/27/23 [facility] Chief Complaint: Patient here for 6 mo follow up hypertension and coronary-myocardial bridge. Says she was admitted to [facility] in [place] for chest pain. Says she was diagnosed with PE. Following with licensed real estate broker now and was started on Eliquis. She is feeling much better and chest pain has resolved. HPI: Aliya Moore is a 57 y.o. female Patient [...] history of COPD (chronic obstructive pulmonary disease) ([facility]), Diabetes mellitus ([facility]), Hyperlipidemia, Hypertension, and Sleep apnea. Surgical History [...] edema History of pu (more content not included)...[facility] 07-19-2023 Hospital Discharge instructions Follow Up Care 07/19/2023 10:53:55 With:Swapna ANGUIANO, Mariama Chen, ONC Address: [place] [phone] When: Unknown Comments:iron studies, b12, folate, mma todayfollow-up in 6mo with LEAD DESIGNER [facility]08-29-2023 Hospital Discharge instructions Follow Up Care 06/28/2023 11:35:56 With:Roby Bob Address: [address] [phone] Business (1) When: Unknown Comments:Continue ELiquis for 6 months total.D dimer, CBCD and CMP end of December 2023.RTC end of December,sooner if new SOB or CP or Leg pain or swelling or bleeding. [facility]08-18-2023 NoteEchocardiology Procedure Exam Date/Time Accession # Ordering Echo Transthoracic 06/17/2023 15:26 EDT [id number] JANETTE BOOTHE, Mbanefo Complete CPT code [id number] Reason for Exam (Echo Transthoracic Complete) Acute pulmonary embolism;Other (please specify) Report [address] [address] Adult Echocardiogram Report Name: ALIYA MOORE Study Date: 06/17/2023 02:55 PM BP: 132/70 mmHg Patient Location: [address] [place] [address] HR: 85 : 1965 Gender: Female Age: 57 yrs Ethnicity: [facility] Weight: 251 lb Reason For Study: Other [...] Satinder RODNEY MD Transcribed by: SENTHIL Technologist: [facility]08-18-2023 Note Admission and Discharge Information [...] female cigarette smoker with history of hypertension, hdi-oyeqwje-sbvafoptp diabetes mellitus type 2, obesity, chronic hypoxic respiratory failure on 3 L home oxygen, depressionpresented with complaints of right-sided chest pain. She was subsequently admitted to [facility] with chest pain secondary to acute right-sided [...] primary care physician as well as the licensed real estate broker. Significant Findings (06/16/2023 19:59 EDT US LE [...] 75.7 % Lymph Auto - 14.3 % Bladen Auto - 8.8 % Eos Auto - 0.9 % Basophil Auto - 0.3 % Neutro Absolute - 6.4 E9/L Lymph Absolute - 1.2 E9/L Bladen Absolute - 0.7 E9/L Eos Absolute - [...] - 133 mg/dL POC Device SN - [id number] POC User ID - [id number] POC Username - FAVIOLA MURO CBC w/ [...] Discharge Plan Discharge D (more content not included)...[facility] HospitalComment on above:Result Comment: Electronically Signed By: JANETTE BOOTHE, Mbanefo\.br\Date and Time Signed: 06/17/23 14:21 [id number] Hospital Discharge instructions Patient Education 06/17/2023 14:17:33 [...] Follow these instructions at home: Medicines Take xavw-nwn-pmgchte and prescription medicines only as told by [...] is important. Where to find more information [place] [employer]: www.lung.org Centers for Disease Control [...] provider. Document Revised: 09/18/2021 Document Reviewed: 09/18/2021 Spinal Modulation Patient Education 2022 [employer]. Follow Up Care 06/16/2023 15:48:06 With:BREA JJ Address: [address] [place] [phone] Business (1) When:1 week Comments:A voice message is left with this office with your information so they can call you for a follow upappiontment. Please call them if you do not hear from them in a few days. Thank you. With:Ezekiel Christian Address: [facility] [address] [place] [address]- When:06/28/2023 11:00:00 [facility]08-18-2023 Evaluation + Plan noteExtracted from: Title:Discharge [...] puff(s), Inhalation, BID fluticasone Nasal 0.05 mg/inh [place], 2 spray(s), Nasal, Daily furosemide 20 mg Tab, 20 mg= 1 tab(s), Oral, Daily gabapentin 300 mg Cap, 300 mg= 1 cap(s), Oral, BID hydrochlorothiazide-lisinopril 25 mg-20 mg Tab, 1 tab(s), Oral, Daily lamotrigine 25 mg Tab, 25 mg= 1 tab(s), Oral, BID pioglitazone 15 mg Tab, 15 mg= 1 tab(s), Oral, Daily Potassium Chloride (Kok-Flmd-Ydj 10) 10 mEq oral tablet, extended release pramipexole 0.5 mg oral tablet, 0.5 mg= 1 tab(s), Oral, TID theophylline 300 mg ER Tab, 300 mg= 1 tab(s), Oral, q12hr traZODONE 50 mg Tab, 50 mg= 1 tab(s), Oral, Once a day (at bedtime) Ventolin HFA 90 mcg/inh Aerosol-Adpt, 1 puff(s), Inhalation, QID, PRN With When Contact Information Ezekiel Christian 06/28/2023 11:00 AM EDT [facility] [address] [place] [address]- Additional Instructions: BREA JJ Within 1 week [address] [place] [phone] Business (1) Additional Instructions: A voice message is left with this office with your information so they can call you for a follow up appiontment. Please call them if you do not hear from them in a few days. Thank you. Pulmonary Embolism Extracted from: Title:Admission H & P Author:JANETTE BOOTHE, Nimcofo Date:06/16/23 57-year-old female cigarette smoker with history of hypertension, ryk-zjavkmc-ukorzclpf diabetes mellitus, obesity, chronic hypoxic respiratory failure [...] Ordered: Initial Hospital Care/Day High 75 Minutes 08328 2. Acute pulmonary embolism (I26.99: Other pulmonary [...] Ordered: Initial Hospital Care/Day High 75 Minutes 45134 3. Sinus tachycardia (R00.0: Tachycardia, unspecified) Secondary to above acute pulmonary embolism. Monitor on telemetry. Ordered: Initial Hospital Care/Day High 75 Minutes 52608 4. COPD without exacerbation (J44.9: Chronic obstructive pulmonary disease, unspecified) Supportive care. Continue on nebulizer treatments. Ordered: Initial Hospital Care/Day High 75 Minutes 99276 5. Hypertension (I10: Essential (primary) hypertension) We will verify home medications and resume accordingly. Ordered: Initial Hospital Care/Day High 75 Minutes 45929 6. Diabetes mellitus (E11.9: Type 2 diabetes [...] deep vein thrombosis (DVT) prophylaxis (Z79.899: Other fdc (current) drug therapy) Eliquis. The patient will [...] made to ensure accuracy. However inadvertent computerized senior naval parachutist errors may be present. Alex Barrientos. Hospitalist. Orders: acetaminophen, 650 mg = 2 tab(s), Tab, Oral, q6hr PRN Pain, Routine, Start date 08/17/23 19:02:00 EDT, 06/16/23 19:02:00 EDT apixaban, 10 [...] deep vein thrombosis (DVT) prophylaxis (Z79.899: Other fdc (current) drug therapy) 4. COPD without exacerbation [...] Appointments Appointment Date:06/28/2023 11:00:00 AM Scheduled [facility]: [facility] Office Visit [facility] () [facility]08-18-2023 Hospital Discharge instructions Follow Up Care 06/17/2023 09:42:41 With:Roby Bob Address: [facility] [address] [place] [phone] Business (1) When: Unknown Comments:THrombophilia labs now with D dimer.D dimer in 3 weeks if D dimer from now is still high.Continue Eliquis 5 mg twice daily for minimum of 6 months.RTC in 3 weeks for results. [facility]08-17-2023 NoteChief Complaint CP started this afternoon while sitting down. states mid sternal CP 10/10. wears 3L O2 all the time. History of Present Illness 57-year-old female cigarette smoker with history of hypertension, rhs-uyyxweu-csrdchpbm diabetes mellitus, obesity, chronic hypoxic respiratory failure [...] 16:00:00) Lymph Auto: 14.3 % (06/16/23 16:00:00) [place] Auto: 8.8 % (06/16/23 16:00:00) Eos Auto: 0.9 % (06/16/23 16:00:00) Basophil Auto: 0.3 % (06/16/23 16:00:00) Neutro Absolute: 6.4 E9/L (06/16/23 16:00:00) Lymph Absolute: 1.2 E9/L (06/16/23 16:00:00) [place] Absolute: 0.7 E9/L (06/16/23 16:00:00) Eos Absolute: [...] RIGHT LOWER LOBE. E (more content not included)...[facility] HospitalComment on above: Result Comment: Electronically Signed By: JANETTE BOOTHE, Alex\.br\Date and Time Signed: 06/16/23 19:05 [id number] NoteStable, [facility] NoteCurrently well controlled with teresa [facility]02-24-2023 NoteNo concerning symptoms, overall she is doing well.[facility]02-24-2023 Note Hypertension is well controlled 102/62 Continue lisinopril/HCTZ, lasix Renal function [facility]Un[facility]-2023 NotePatient here for 6 mo follow up hypertension and myocardial bridge of coronary artery. Had labs in Jul 2022. Denies chest pain and lightheadedness. Review of Systems Cardiovascular: Positive for dyspnea on exertion. Respiratory: Positive for cough and shortness of breath. Musculoskeletal: Positive for arthritis, back pain and joint pain. Neurological: Positive for headaches. All other systems reviewed and are negative.[facility] 12-24-2022 NoteUTP CARDIOLOGY PROGRESS NOTE HPI: Aliya Moore is a 57 y.o. female here [...] most likely r/t pulmo (more content not included)...[facility] 12-24-2022 NoteProvider had extended 10 min discussion again with patient about smoking cessation, at this time she doesn't want to take any further medication or that she is ready to quit smoking at this time.[facility] Evaluation + Plan note Future Appointments Appointment Date:07/19/2023 10:00:00 AM Scheduled Provider: Location:.ONCOLOGY Appointment Type:ONC Office Visit 30 (FT) [facility] Future Appointments Appointment Date:01/16/2024 09:00:00 AM Scheduled Provider: [facility] Type:[facility]C Office Visit 30 (FT) Future Scheduled Tests Laboratory* CBC w/ Auto Diff 12/27/23 * Comprehensive Metabolic Panel 12/27/23 * D-Dimer 12/27/23 [facility] Future Appointments Appointment Date:01/16/2024 11:30:00 AM Scheduled Provider:Mariama Moore Location:.ONCOLOGY Appointment Type:ONC Office Visit 30 (FT) [facility] Diagnosis Other insomnia- Primary ROLANDO (obstructive sleep apnea) Obstructive sleep apnea (adult) (pediatric) COPD mixed type (CMS/HCC) Tobacco dependence syndrome Tobacco use disorder BMI 37.0-37.9, adult Anxiety and depression (CMS/HCC) Restless leg syndrome Restless legs syndrome (RLS) [facility] Diagnosis Anxiety and depression (CMS/HCC)- Primary Type 2 diabetes mellitus without complication, without long-term current use of insulin (CMS/HCC) Arthritis Unspecified arthropathy, site unspecified [facility] Narrative No data available for this section [facility] No data available for this section [facility] No data available for this section [facility] Summary Purpose Family History No Family History Records FoundNo Family History Records FoundNo Family History Records Found No data available for this section No Family History Records Found No data available for this section No data available for this section No data available for this section No data available for this section No Family History Records FoundNo Family History Records Found Advance Directives No Advanced Directives Records FoundNo Advanced Directives Records FoundNo Advanced Directives Records FoundNo Advanced Directives Records FoundNo Advanced Directives Records FoundNo Advanced Directives Records Found Additional Source Comments INFORMATION SOURCE (unrecogn ized section and content) DATE CREATED AUTHOR 06/22/2021 [facility] DATE CREATED AUTHOR AUTHOR'S ORGANIZ ATION 12/15/2021 [facility] DATE CREATED AUTHOR AUTHOR'S ORGANIZ ATION 02/26/2023 [facility] DATE CREATED AUTHOR AUTHOR'S ORGANIZ ATION 09/10/2023 [facility] DATE CREATED AUTHOR AUTHOR'S ORGANIZ ATION 01/24/2024 [facility] DATE CREATED AUTHOR AUTHOR'S ORGANIZ ATION 02/22/2024 [facility] dical Specialists EPIC Patient Care team informatio n (unrecognized section and content) [employer] Relationship Specialty Start Date End Date Jose M Light MD [address] [place] [address] PCP - General Family Medicine 10/18/23 Brea Jj NP [address] [place] [phone] Nurse Practitioner Family Medicine 10/18/23 [employer] Relationship Specialty Start Date End Date Jose M Light MD [address] [place] [phone] PCP - General Family Medicine 10/18/23 Brea Jj NP [address] [place] [phone] Nurse Practitioner Family Medicine 10/18/23 Reason for [...] BE BASED ON THE PRIMARY CLINICAL RECORDS. [employer] provides no warranty or guarantee of the accuracy or completeness of information in this document.
--- NOTE | 2024-03-31 20:23 | ECG_ITS ---
[facility] Test Date: 2024-03-31 Pat Name: ALIYA CONDON Department: Room: - Gender: Female [employer] Operator: : 1965 Requested By: LINK HAMEED Order Number: [id number] Reading MD: CARIDAD TEJADA Measurements Intervals Morrison Rate: 90 P: 49 FL: 140 QRS: 70 QRSD: 92 T: 64 QT: 342 QTc: 390 Interpretive Statements 1100 Sinus rhythm 9110 normal ECG Compared to ECG 12/20/2023 19:08:59 Sinus tachycardia no longer present Electronically Signed On 04-01-2024 8:23:42 EDT by CARIDAD TEJADA
--- NOTE | 2024-03-31 20:34 | ED_ITS ---
HPI - Abdominal Pain General Chief Complaint: Abdominal Pain Stated Complaint: Abdominal Pain Time Seen by Provider: 03/31/24 20:10 Source: patient Mode of arrival: walk-in Limitations: no limitations History of Present Illness HPI narrative: 58-year-old female presents for abdominal pain. She is pointing to the epigastric area to indicate her area of pain. She states that she thinks it is her gallbladder. She has had gallbladder issues in the past but they will not take it out because of her COPD. It started after eating some spaghetti just before coming into the emergency department. The pain is severe and she vomited. Related Data Home Medications ?Medication ?Instructions ?Recorded ?Confirmed albuterol sulfate 90 mcg/actuation inhalation 03/31/24 aerosol inhaler amitriptyline 50 mg tablet mg 03/31/24 apixaban 5 mg tablet (Eliquis) mg 03/31/24 aspirin 81 mg tablet,delayed mg 03/31/24 release atorvastatin 40 mg tablet mg 03/31/24 buspirone 15 mg tablet mg 03/31/24 calcium carbonate 600 mg-vitamin tab 03/31/24 D3 5 mcg (200 unit) tablet celecoxib 200 mg capsule mg 03/31/24 clonazepam 0.5 mg tablet mg 03/31/24 duloxetine 60 mg capsule,delayed mg PO 03/31/24 release ferrous sulfate 325 mg (65 mg mg 03/31/24 iron) tablet (FeroSul) fluticasone propionate 110 inhalation 03/31/24 mcg/actuation HFA aerosol inhaler furosemide 20 mg tablet mg 03/31/24 gabapentin 300 mg capsule mg 03/31/24 glycopyrrolate 9 mcg-formoterol inhalation 03/31/24 4.8 mcg HFA aerosol inhaler (Bevespi Aerosphere) ipratropium 0.5 mg-albuterol 3 mg ml inhalation 03/31/24 (2.5 mg base)/3 mL nebulization soln lamotrigine 25 mg tablet mg 03/31/24 lisinopril 20 tab 03/31/24 mg-hydrochlorothiazide 25 mg tablet multivitamin tab 03/31/24 pioglitazone 15 mg tablet mg 03/31/24 potassium chloride 10 mEq meq PO 03/31/24 tablet,extended release pramipexole 0.5 mg tablet mg 03/31/24 theophylline 300 mg mg PO 03/31/24 tablet,extended release,12 hr Previous Rx's ?Medication ?Instructions ?Recorded hydrocodone 5 mg-acetaminophen 325 1 tab PO Q6H PRN pain 5 days #20 03/31/24 mg tablet tabs ondansetron 4 mg disintegrating 4 mg PO Q6H PRN nausea and 03/31/24 tablet vomiting #20 tabs Allergies Allergy/AdvReac Type Severity Reaction Status Date / Time No Known Drug Allergies Allergy Verified 03/31/24 20:04 Review of Systems ROS Narrative A ten point review of systems is negative except as noted above. PFSH PFSH Social History Smoking status: Former smoker Exam Narrative Exam Narrative: Nurses note and vital signs reviewed and patient is not hypoxic. General: The patient appears uncomfortable Skin: Warm, dry, no pallor noted. There is no rash noted. Head: Normocephalic, atraumatic Eye: Normal conjunctiva, no drainage Ears, Nose, Mouth, and Throat: oral mucosa is moist. Nares patent. Cardiovascular: Regular Rate and Rhythm Respiratory: Patient is in no distress, no accessory muscle use, lungs are clear to auscultation, no wheezing, rales or rhonchi Back: non-tender GI: Tender in the epigastric area. No distention or mass Musculoskeletal: The patient has no evidence of calf tenderness, no pitting edema, symmetrical pulses noted bilaterally Neurological: A&O, normal speech Psychiatric: Cooperative Constitutional Vital Signs, click to edit/add: Last Vital Signs Temp 98.7 F 03/31/24 19:59 Pulse 104 H 03/31/24 19:59 Resp 18 03/31/24 19:59 BP 145/87 H 03/31/24 19:59 Pulse Ox 94 L 03/31/24 20:57 O2 Del Method Nasal Cannula 03/31/24 20:57 O2 Flow Rate 2 03/31/24 20:57 Course Vital Signs Vital signs: Vital Signs Temperature 98.7 F 03/31/24 19:59 Pulse Rate 104 H 03/31/24 19:59 Respiratory Rate 18 03/31/24 19:59 Blood Pressure 145/87 H 03/31/24 19:59 Pulse Oximetry 95 03/31/24 19:59 Oxygen Delivery Method Nasal Cannula 03/31/24 19:59 Oxygen Delivery Flow Rate 3 03/31/24 19:59 Temperature 98.7 F 03/31/24 19:59 Pulse Rate 104 H 03/31/24 19:59 Respiratory Rate 18 03/31/24 19:59 Blood Pressure 145/87 H 03/31/24 19:59 Pulse Oximetry 94 L 03/31/24 20:57 Oxygen Delivery Method Nasal Cannula 03/31/24 20:57 Oxygen Delivery Flow Rate 2 03/31/24 20:57 MDM - Abdominal Pain MDM Narrative Medical decision making narrative: Laboratory analysis is negative. She is feeling much better after receiving IV morphine. She is discharged home on Hiller and Zofran. Treatment diagnosis and follow-up were discussed with the patient. Differential Diagnosis Differential diagnosis: Likely abdominal pain, constipation, gastroenteritis, pancreatitis and other (Biliary colic) Lab Data Attestation: I reviewed the patient's lab results. Labs: Lab Results 03/31/24 Range/Units 20:32 WBC 8.6 (4.0-11.0) 10^3/uL RBC 4.65 (4.20-5.40) 10^6/uL Hgb 13.4 (12.0-16.0) g/dL Hct 42.3 (36.0-48.0) % MCV 91.0 (81.0-99.0) fL MCH 28.8 (26.7-34.0) pg MCHC 31.7 (29.9-35.2) g/dL RDW 15.2 H (11.0-15.0) % Plt Count 185 (150-450) 10^3/uL MPV 12.6 (9.5-13.5) fL Neut % (Auto) 74.5 (43.0-75.0) % Lymph % (Auto) 14.2 L (20.5-60.0) % [place] % (Auto) 9.2 (1.7-12.0) % Eos % (Auto) 1.4 (0.9-7.0) % Baso % (Auto) 0.5 (0.2-2.0) % Neut # (Auto) 6.4 (1.4-6.5) 10^3/uL Lymph # (Auto) 1.2 (1.2-3.8) 10^3/uL [place] # (Auto) 0.8 (0.3-0.8) 10^3/uL Eos # (Auto) 0.1 (0.0-0.7) 10^3/uL Baso # (Auto) 0.0 (0.0-0.1) 10^3/uL Abs Immat Gran (auto) 0.02 (0.00-0.03) 10^3/uL Imm/Tot Granulo (auto) 0.2 (0.0-0.5) % Sodium 136 (136-145) mmol/L Potassium 4.0 (3.5-5.1) mmol/L Chloride 100 (98-107) mmol/L Carbon Dioxide 28.0 (21.0-32.0) mmol/L Anion Gap 12.0 BUN 26.0 H (7.0-18.0) mg/dL Creatinine 1.06 H (0.55-1.02) mg/dL Est GFR ( Amer) >60 (>=60) Est GFR (Non-Af Amer) 53 L (>=60) BUN/Creatinine Ratio 24.5 Glucose 146 H (74-106) mg/dL Calcium 9.6 (8.5-10.1) mg/dL Total Bilirubin 0.3 (0.2-1.0) mg/dL Direct Bilirubin 0.1 (0.0-0.2) mg/dL AST 18 (15-37) U/L ALT 24 (14-59) U/L Alkaline Phosphatase 81 (46-116) U/L Total Protein 8.2 (6.4-8.2) g/dL Albumin 3.5 (3.4-5.0) g/dL Globulin 4.7 g/dL Albumin/Globulin Ratio 0.7 Amylase 78 (25-115) U/L Lipase 53.0 (16.0-77.0) U/L ECG Data Attestation: I personally reviewed and interpreted this ECG as follows: (EKG on my interpretation shows sinus rhythm with rate of 90 and no acute changes.) Discharge Plan Discharge Stand Alone Forms: Portal Instructions Chief Complaint: Abdominal Pain Clinical Impression: Biliary colic Patient Disposition: Home, Self-Care Time of Disposition Decision: 21:36 Condition: Good Mode of Transportation: Private Vehicle Prescriptions / Home Meds: New hydrocodone-acetaminophen 5-325 mg tablet 1 tab PO Q6H PRN (Reason: pain) 5 Days Qty: 20 0RF ondansetron 4 mg tablet,disintegrating 4 mg PO Q6H PRN (Reason: nausea and vomiting) Qty: 20 0RF No Action aspirin 81 mg tablet,delayed release (DR/EC) amitriptyline 50 mg tablet albuterol sulfate 90 mcg/actuation HFA aerosol inhaler INHALATION Eliquis 5 mg tablet multivitamin Tablet celecoxib 200 mg capsule pioglitazone 15 mg tablet atorvastatin 40 mg tablet ipratropium-albuterol 0.5 mg-3 mg(2.5 mg base)/3 mL solution for nebulization INHALATION clonazepam 0.5 mg tablet potassium chloride 10 mEq tablet extended release PO calcium carbonate-vitamin D3 600 mg-5 mcg (200 unit) tablet theophylline 300 mg tablet extended release 12 hr PO lamotrigine 25 mg tablet pramipexole 0.5 mg tablet ferrous sulfate [FeroSul] 325 mg (65 mg iron) tablet gabapentin 300 mg capsule lisinopril-hydrochlorothiazide 20-25 mg tablet furosemide 20 mg tablet fluticasone propionate 110 mcg/actuation HFA aerosol inhaler INHALATION buspirone 15 mg tablet duloxetine 60 mg capsule,delayed release(DR/EC) PO Bevespi Aerosphere 9-4.8 mcg HFA aerosol inhaler INHALATION Print Language: Maori Instructions: Biliary Colic (ED) Referrals: Brea Jj SUPERVISOR LENS GENERATING [Primary Care Provider] - 1 week
[2024-03-31] MEDS: ONDANSETRON PF 4 MG/2 ML VIAL IV (20:46)
[2024-03-31] MEDS: 0.9 % SODIUM CHLORIDE 1,000 ML 1000 ML IV (20:46)
[2024-03-31] MEDS: MORPHINE SULFATE 4 MG/ML VIAL IV (20:46)
[2024-03-31 20:58] LABS: Basophils Percent Auto 0.5 % (0.2-2.0); Eosinophils Absolute Auto 0.1 10^3/uL (0.0-0.7); Eosinophils Percent Auto 1.4 % (0.9-7.0); Hematocrit 42.3 % (36.0-48.0); Hemoglobin 13.4 g/dL (12.0-16.0); Immature Granulocytes Abs Auto 0.02 10^3/uL (0.00-0.03); Immature Granulocytes Pct Auto 0.2 % (0.0-0.5); Lymphocytes Absolute Auto 1.2 10^3/uL (1.2-3.8); Lymphocytes Percent Auto 14.2 % (20.5-60.0); Mean Corpuscular HGB Conc 31.7 g/dL (29.9-35.2); Mean Corpuscular Hemoglobin 28.8 pg (26.7-34.0); Mean Platelet Volume 12.6 fL (9.5-13.5); Monocytes Absolute Auto 0.8 10^3/uL (0.3-0.8); Monocytes Percent Auto 9.2 % (1.7-12.0); Neutrophils Absolute Auto 6.4 10^3/uL (1.4-6.5); Neutrophils Percent Auto 74.5 % (43.0-75.0); Platelet Count 185 10^3/uL (150-450); Red Blood Count 4.65 10^6/uL (4.20-5.40); Red Cell Distribution Width 15.2 % (11.0-15.0); White Blood Count 8.6 10^3/uL (4.0-11.0)
[2024-03-31 21:07] LABS: BUN Creatinine Ratio 24.5; Calcium 9.6 mg/dL (8.5-10.1); Chloride 100 mmol/L (98-107); Estimated GFR (African America >60 (>=60); Estimated GFR (Non-African Ame 53 (>=60); Glucose 146 mg/dL (74-106); Sodium 136 mmol/L (136-145)
[2024-03-31 21:24] LABS: Alanine Aminotransferase 24 U/L (14-59); Albumin Globulin Ratio 0.7; Albumin Level 3.5 g/dL (3.4-5.0); Alkaline Phosphatase 81 U/L (46-116); Amylase 78 U/L (25-115); Aspartate Amino Transferase 18 U/L (15-37); Bilirubin Direct 0.1 mg/dL (0.0-0.2); Bilirubin Total 0.3 mg/dL (0.2-1.0); Globulin 4.7 g/dL; Total Protein 8.2 g/dL (6.4-8.2)
[2024-03-31] MEDS: HYDROCODONE/ACET 5-325 MG TABLET 2 TAB PO (22:03)
== END 2024-03-31 22:06 | disposition home or self-care (01) ==
PROVIDERS: Emergency Provider Emergency Medicine; PCP Nurse Practitioner
DX: K80.50 Calculus of bile duct without cholangitis or cholecystitis without obstruction (principal); J44.9 Chronic obstructive pulmonary disease, unspecified; Z87.891 Personal history of nicotine dependence
CPT/HCPCS: 36415; 80048; 80076; 82150; 83690; 85025; 93005; 96361; 96374; 96375; 99285

== ENCOUNTER 2024-04-16 08:11 | Outpatient (OUT) | payer OTHER, SELFPAY ==
--- NOTE | 2024-04-16 08:14 | MM_ITS ---
Patient Name: ALIYA CONDON MR#: [id number] : 1965 Exam Date: 04/16/2024 Ordering Doctor: ENRIQUE Jj CNP RADIOLOGY REPORT PROCEDURE: MM TOMOSYNTHESIS SCREENING BI COMPARISON: MM TOMOSYNTHESIS SCREENING BI, 04/14/2023. MG MAMM SCREEN 3D EMY CAD, 04/30/2022. MG MAMM SCREEN 3D EMY CAD, 04/29/2021. MG MAMM EMY SCRN W CAD DIG, 09/05/2007. INDICATIONS: Screening Calculator Name NCI Breast Cancer Risk Assessment Tool 5 Year Breast Cancer Risk 0.90% Lifetime Breast Cancer Risk 5.00% Personal Breast Cancer No Personal Ovarian Cancer No Treatments None Family Cancers None LOCATION: [facility] BREAST COMPOSITION: The breasts are almost entirely fatty. FINDINGS: DIAGNOSTIC CATEGORY 2--BENIGN FINDING: RIGHT BREAST: No significant suspicious finding. Scattered benign-appearing calcifications are present. No significant change has occurred. LEFT BREAST: No significant suspicious finding. Scattered benign-appearing calcifications are present. No significant change has occurred. RECOMMENDATIONS: ROUTINE MAMMOGRAM AND CLINICAL EVALUATION IN 12 MONTHS. PLEASE NOTE: A NORMAL MAMMOGRAM DOES NOT EXCLUDE THE POSSIBILITY OF BREAST CANCER. A CLINICALLY SUSPICIOUS PALPABLE LUMP SHOULD BE BIOPSIED. Dictated by: Papito Downs M.D. on 04/16/2024 at 14:17 Approved by: Papito Downs M.D. on 04/16/2024 at 15:04
--- OUTSIDE RECORDS SUMMARY | 2024-04-16 08:25 | XMS_ITS | CCD ---
Author Organization [facility] Care Team Providers Care Stagecraft Professor Name Role Phone TOSHIA SAM Attending Unavailable TOSHIA SAM Admitting Unavailable SELF, REFERRED Referring Unavailable SELF, REFERRED Primary Care Unavailable AICHHOLZ, DRILL FOREMAN BREA Primary Care Unavailable SAMSA ., CORRINA Consulting Unavailable SAMSA ., CORRINA Admitting Unavailable SAMSA ., CORRINA Attending Unavailable AICHHOLZ, DRILL FOREMAN BREA Attending Unavailable AICHHOLZ, DRILL FOREMAN BREA Consulting Unavailable AICHHOLZ, DRILL FOREMAN BREA Primary Care Unavailable AICHHOLZ, DRILL FOREMAN BREA Admitting Unavailable AICHHOLZ, DRILL FOREMAN BREA Primary Care Unavailable ROSA M, DR MIGUEL Cline Consulting Unavailable SAMSA ., CORRINA Admitting Unavailable SAMSA ., CORRINA Attending Unavailable SAMSA ., CORRINA Consulting Unavailable SAMSA ., CORRINA Attending Unavailable SAMSA ., CORRINA Consulting Unavailable SAMSA ., CORRINA Admitting Unavailable AICHHOLZ, DRILL FOREMAN BREA Primary Care Unavailable AICHHOLZ, DRILL FOREMAN BREA Attending Unavailable DR LEANA AYOUB V Consulting Unavailable AICHHOLZ, DRILL FOREMAN BREA Primary Care Unavailable AICHHOLZ, DRILL FOREMAN BREA Admitting Unavailable AICHHOLZ, DRILL FOREMAN BREA Consulting Unavailable PAY ., DR SALAZAR Admitting Unavailable PAY ., DR SALAZAR Attending Unavailable PAY ., DR SALAZAR Consulting Unavailable AICHHOLZ, DRILL FOREMAN BREA Primary Care Unavailable QUETA .JUAN Consulting UnavailJustine Kauffman Consulting Unavailable AICHHOLZ, DRILL FOREMAN BREA Primary Care Unavailable PAY ., DR SALAZAR Attending Unavailable PAY ., DR SALAZAR Admitting Unavailable QUETA ., JUAN DOUGHERTY Consulting Unavailabl e POLICARO, KENDY Consulting Unavailable AICHRASHMI, ENRIQUE BREA Attending Unavailable AICHHOLZ, ENRIQUE BREA Consulting Unavailable AICHHOLZ, DRILL FOREMAN BREA Primary Care Unavailable AICHHOLZ, DRILL FOREMAN BREA Admitting Unavailable AICHHOLZ, BREA J Primary [...] Medication Allergies] Propensity to adverse reactions (disorder) [facility] Repository Medications Current Medications Medication Drug Class(es) Dates Sig (Normalized) Sig (Original) [id number] 200 actuat albuterol 0.09 mg/actuat metered dose [...] BID, # 180 tab(s), Refills(s) 3, Pharmacy: [facility] 1155, 175, cm, 06/28/23 10:58:00 EDT, Height/Length Dosing, 114.6, kg, 06/28/23 10:58:00 EDT, Weight Dosing Start Date: 06/28/23 Status: Ordered Start: 06-17-2023 take 2 tablets by [facility] twice daily, then take 1 tablet by [...] day(s), # 28 cap(s), Refills(s) 0, Pharmacy: [facility] 1155, 175, cm, 09/25/23 18:25:00 EST, [...] Start: 06-17-2023 fluticasone Na margaret 0.05 mg/inh [place] 2 spray(s), Nasal, Daily, 16 gram, Refill(s) [...] Chloride (11 sources) Start: 06-17-2023 Potassium Chloride (Iif-Wwqi-Qnp 10) 10 mEq oral tablet, extended release [...] 12-05-2023 12-05-2023 Chronic Other aftercare (1 source) 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; Translations: [[facility] CURRENT USE OF ASPIRIN] Onset: 02-26-2023 Episodic Other aftercare (1 source) Other long term care administrator (current) drug therapy; Translations: [OTH [facility] CURRENT DRUG THERAPY] Onset: 02-26-2023 Episodic Other aftercare (1 source) Long-term current use of drug therapy; Translations: [Other long term care administrator (current) drug therapy] Onset: 06-16-2023 Episodic Other [...] [Moles/Vol] 301 nmol/L Invalid Interpretation Code 0-378 [facility] Comment on above: Result Comment: This test was developed and its performance characteristics determined by [employer]. It has not been cleared or approved by the Food and Drug Administration. Performed at: [facility] [id number] MD Tony Laird Performed By: #### 2 900471, 2655113, 6792486, 8976597, 1877552, 5529350, 62522795 ####[facility] [address] [place] [address] Oncology Progress Noteon Oncology Progress Note Chief Complaint PE Pt states she has had a couple visits to hosp. [facility] Gallbladder. Pt just has ques on how blood work results are. Diagnoses 1. History of pulmonary embolism (Z86.711: Personal history of pulmonary embolism) Oncological History/ROS/PE/Assess ment and Plan Aliya was referred to our hematology office at [facility] for Thrombophilia work up and decision about duration of anticoagulation for the acute PE diagnosed on . She is a 57-year-old female cigarette smoker with history of hypertension, zgr-wpfpghv-sdklpvmwt diabetes mellitus, obesity, chronic hypoxic respiratory failure on 3 L home oxygen, and depression who presented on 06/16/[address] [facility] ER with complaints of right-sided chest pain [...] cramping a lot. has had colonoscopy at [facility] Physical Examination General: alert, no acute [...] Contact Information Swapna ANGUIANO, Mariama Chen, ONC [facility] [address] [place] [phone] Additional Instructions: iron studies, b12, folate, mm (more content not included)... Normal [facility] CHEMISTRYOrdered By: SYSTEM SYSTEM on 01-16-2024 Cobalamin [...] Treatmenton 12-29 Consent for Treatment [id number] .00TIFF Normal [facility] Consent for Treatment [id number] .00TIFF Normal [facility] Ferritinon 01-16-2024 Ferritin [Mass/Vol] 63 ng/mL Normal 11-307 [facility] Comment on above: Performed By: #### 2 239840, 6594922, 7006857, 6517768, 1300102, 3112498, 40139962 ####[facility] [address] [place] [address] Folateon 01-16-2024 Folate [Mass/Vol] 15.3 ng/mL Normal >=6.7 [facility] Comment on above: Performed By: #### 2 582714, 9232884, 5937414, 0833378, 6471819, 3887290, 95377975 ####[facility] [address] [place] [address] Ironon 01-16-2024 Iron [Mass/Vol] 63 microgram/dL Normal 35-153 [facility] Comment on above: Performed By: #### 2 867443, 1002073, 6381019, 9319423, 6669450, 0704621, 22469835 ####[facility] [address] [place] [address] Iron Saturationon 01-16-2024 Iron binding capacity [Mass/Vol] 365 microgram/dL Normal 250-400 [facility] Comment on above: Performed By: #### 2 946465, 7843342, 0234628, 5313147, 4537209, 0390257, 43373920 ####[facility] [address] [place] [address] Iron saturation [Mass fraction] 17 % Low 20-50 [facility] Comment on above: Performed By: #### 2 263550, 6273871, 8089412, 7303580, 0711831, 0304784, 95784716 ####[facility] [address] [place] [address] Transferrinon 01-16-2024 Transferrin [Mass/Vol] 261 mg/dL Normal 200-370 [facility] Comment on above: Performed By: #### 2 379173, 0700316, 3704205, 4151553, 3433740, 9296454, 04148908 ####[address] [address] Vit B12on 01-16-2024 Cobalamin (Vitamin B12) [Mass/Vol] 420 pg/mL Normal 50-1500 [facility] Comment on above: Performed By: #### 2 283301, 0215554, 7114280, 6239782, 2804776, 0565314, 76766012 ####[facility] [address] [place] [address] CBC w/ Auto Diffon 4 Basophils/100 WBC (Bld) 0.6 % Normal 0.0-2.0 [facility] Comment on above: Performed By: #### 2 561507, 3162557, 4837437, 84406414 ####[address] [place] [address] Basophils/Leukocytes Auto (Bld) [Pure # fraction] 0.0 E9/L Normal 0.0-0.2 [facility] Comment on above: Performed By: #### 2 869897, 5241206, 2808965, 76761318 ####[facility] [address] [place] [address] Eosinophils (Bld) [#/Vol] 0.2 E9/L Normal 0.0-0.5 [facility] Comment on above: Performed By: #### 2 305127, 1278839, 0142091, 84520814 ####[address] [address] Eosinophils/100 WBC (Bld) 3.0 % Normal 0.0-8.0 [facility] Comment on above: Performed By: #### 2 937359, 0456293, 2704052, 90607962 ####[address] [address] Erythrocyte distribution width (RBC) [Ratio] 15.7 % High 10.9-14.2 [facility] Comment on above: Performed By: #### 2 362073, 1491069, 8811781, 02249217 ####[address] [address] Hematocrit (Bld) [Volume fraction] 36.9 % Normal 34.0-46.0 [facility] Comment on above: Performed By: #### 2 470410, 8926371, 9989294, 98267466 ####[address] [address] Hemoglobin (Bld) [Mass/Vol] 12.4 g/dL Normal 12.0-16.0 [facility] Comment on above: Performed By: #### 2 958532, 4315766, 4198128, 26080558 ####[address] [address] Lymphocytes (Bld) [#/Vol] 1.4 E9/L Normal 1.0-4.0 [facility] Comment on above: Performed By: #### 2 206995, 3960427, 9963052, 36824333 ####[address] [address] Lymphocytes/100 WBC (Bld) 20.7 % Normal 14.0-50.0 [facility] Comment on above: Performed By: #### 2 909923, 7270966, 3626553, 64882976 ####[address] [address] MCH (RBC) [Entitic mass] 29.5 pg Normal 27.0-34.0 [facility] Comment on above: Performed By: #### 2 547977, 2352557, 7490266, 42092549 ####[address] [address] MCHC (RBC) [Mass/Vol] 33.6 g/dL Normal 31.4-36.0 [facility] Comment on above: Performed By: #### 2 998718, 8195105, 3287891, 97855131 ####[address] [address] MCV (RBC) [Entitic vol] 87.9 fL Normal 80.0-100.0 [facility] Comment on above: Performed By: #### 2 140606, 2616993, 4317099, 55364763 ####[address] [address] Monocytes (Bld) [#/Vol] 0.6 E9/L Normal 0.2-1.0 [facility] Comment on above: Performed By: #### 2 331503, 7109113, 5216863, 91025964 ####[address] [address] Neutrophils (Bld) [#/Vol] 4.5 E9/L Normal 2.0-7.5 [facility] Comment on above: Performed By: #### 2 076927, 2922517, 1680916, 11837269 ####[address] [address] Neutrophils/100 WBC (Bld) 66.7 % Normal 36.0-75.0 [facility] Comment on above: Performed By: #### 2 786776, 9993763, 0588036, 57037411 ####[address] [place] [address] Platelet mean volume (Bld) [Entitic vol] 10.3 fL Normal 6.4-10.8 [facility] Comment on above: Performed By: #### 2 485708, 4079642, 4234123, 47961237 ####[address] [place] [address] Platelets (Bld) [#/Vol] 196.0 E9/L Normal 150.0-500.0 [facility] Comment on above: Performed By: #### 2 447323, 6202775, 2230265, 64681405 ####[address] [place] [address] RBC (Bld) [#/Vol] 4.2 E12/L Low 4.3-5.9 [facility] Comment on above: Performed By: #### 2 161788, 6039514, 1852752, 08156630 ####[facility] [address] [place] [address] WBC corrected for nucl RBC Auto (Bld) [#/Vol] 6.8 E9/L Normal 4.0-11.0 [facility] Comment on above: Performed By: #### 2 484314, 7031597, 3760292, 37942616 ####[facility] [address] [place] [address] CHEMISTRYOrdered By: SYSTEM SYSTEM on 01-09-2024 Albumin [...] 01-09-2024 Albumin [Mass/Vol] 4.1 g/dL Normal 3.3-5.0 [facility] Comment on above: Performed By: #### 2 382570, 1891156, 4307198, 56895671 ####[facility] [address] [place] [address] Albumin/Globulin (S) [Mass conc ratio] 1.2 Normal 1.1-2.2 [facility] Comment on above: Performed By: #### 2 105805, 9927469, 2728508, 74396708 ####[facility] [address] [place] [address] ALP [Catalytic activity/Vol] 61 Int._Unit/L Normal 21-98 [facility] Comment on above: Performed By: #### 2 427256, 0983938, 2087572, 52635863 ####[facility] [address] [place] [address] ALT No additional P-5'-P [Catalytic activity/Vol] 17 Int._Unit/L Normal 6-46 [facility] Comment on above: Performed By: #### 2 424789, 2630064, 4344584, 29341338 ####[facility] [address] [place] [address] Anion gap [Moles/Vol] 12 mmol/L Normal 6-16 [facility] Comment on above: Performed By: #### 2 715712, 9009471, 1469305, 37610487 ####[facility] [address] [place] [address] AST [Catalytic activity/Vol] 18 Int._Unit/L Normal 5-43 [facility] Comment on above: Performed By: #### 2 254954, 7757228, 9969690, 68573738 ####[facility] [address] [place] [address] Bilirubin [Mass/Vol] 0.4 mg/dL Normal 0.0-1.1 [facility] Comment on above: Performed By: #### 2 826145, 4827775, 7403036, 65970711 ####[facility] [address] [place] [address] Calcium [Mass/Vol] 9.8 mg/dL Normal 8.9-11.1 [facility] Comment on above: Performed By: #### 2 348064, 2838262, 1100643, 80169910 ####[facility] [address] [place] [address] Chloride [Moles/Vol] 101 mmol/L Normal 101-111 [facility] Comment on above: Performed By: #### 2 343462, 8900472, 0694123, 64273742 ####[facility] [address] [place] [address] CO2 [Moles/Vol] 28 mmol/L Normal 21-31 [facility] Comment on above: Performed By: #### 2 646252, 8956351, 2268089, 73989737 ####[facility] [address] [place] [address] Creatinine [Mass/Vol] 1.0 mg/dL Normal 0.5-1.3 [facility] Comment on above: Performed By: #### 2 382111, 2589752, 3551064, 54359487 ####[facility] [address] [place] [address] Globulin (S) [Mass/Vol] 3.4 g/dL Normal 1.4-4.0 [facility] Comment on above: Performed By: #### 2 027317, 5714848, 2735950, 53112402 ####[facility] [address] [place] [address] Glucose [Mass/Vol] 98 mg/dL Normal 55-199 [facility] Comment on above: Performed By: #### 2 678854, 3718632, 5881046, 71870705 ####[facility] [address] [place] [address] Potassium [Moles/Vol] 4.3 mmol/L Normal 3.5-5.3 [facility] Comment on above: Performed By: #### 2 330703, 0784975, 8061646, 09905809 ####[facility] [address] [place] [address] Protein [Mass/Vol] 7.5 g/dL Normal 6.0-7.8 [facility] Comment on above: Performed By: #### 2 304623, 3672611, 7587778, 31178076 ####[facility] [address] [facility] [place] [address] Sodium [Moles/Vol] 137 mmol/L Normal 135-145 [facility] Comment on above: Performed By: #### 2 183572, 1372373, 3929408, 22306777 ####[facility] [address] [place] [address] Urea nitrogen [Mass/Vol] 21 mg/dL Normal 5-21 [facility] Comment on above: Performed By: #### 2 372504, 8230726, 8567405, 61204404 ####[facility] [address] [place] [address] Urea nitrogen/Creatinine [Mass ratio] 21 No Units High 10-20 [facility] Comment on above: Performed By: #### 2 125197, 4902990, 3694825, 36001454 ####[facility] [address] [place] [address] COAGULATIONOrdered By: Catina Miles on 01-09-2024 Fibrin D-dimer FEU (PPP) [Mass/Vol] 404 ng/mL FEU Normal 215 - 500 ng/mL FEU [facility] Auto Coag Comment on above: Interpretive Data: [...] Treatmenton 12-29 Consent for Treatment [id number] .00TIFF Normal [facility] D-Dimeron 01-09-2024 Fibrin D-dimer FEU (PPP) [Mass/Vol] 404 [id number] Normal 215-500 [facility] Comment on above: Result Comment: This [...] infections Liver cirrhosis Performed By: #### 2 133249, 0829463, 1064398, 66630107 ####[facility] [address] [place] [address] HEMATOLOGYOrdered By: SYSTEM SYSTEM on 01-09-2024 Basophils/100 [...] 01-09-2024 eGFR 65 mL/min/1.73 m2 Normal >=59 [facility] Comment on above: Order Comment: Order added by Discern Expert. Performed By: #### 2 269989, 5915766, 3994306, 07068684 ####[facility] [address] [place] [address] CT Abdomen/Pelvis w/ Contras ton 11-24-2023 CT [...] Vincenzo Colvin DO Transcribed by: NOHEMY Technologist: [facility] Report IMPRESSION: NO ACUTE ABDOMINOPELVIC PROCESS. CHOLELITHIASIS. [...] 11/24/2023 14:25 EST by Vincenzo Colvin DO [facility] Prescriptions/Work Noteson 1 12-14-2022 Prescriptions/Work Notes [id number]# 1.00TIFF Normal [facility] Discharge Instructionson Discharge Instructions [id number]# 1.00TIFF [facility] Monitor Recordon 09-26-2023 Monitor Record [id number]# 1.00TIFF Normal [facility] UA With Cult Reflexon 2022 Bilirubin Ql (U) Negative Normal Negative [facility] Comment on above: Performed By: #### 1 6160047 ####[facility] [address] [place] [address] Clarity (U) CLEAR Normal Clear [facility] Comment on above: Performed By: #### 1 4950155 ####[facility] [address] [place] [address] Color (U) YELLOW Normal Yellow [facility] Comment on above: Performed By: #### 1 9965950 ####[facility] [address] [place] [address] Epithelial cells.squamous LM.HPF (Urine sed) [#/Area] 0-2 Normal 0-2 [facility] Comment on above: Performed By: #### 1 7817647 ####[facility] [address] [place] [address] Glucose Test strip (U) [Mass/Vol] Negative Normal Negative [facility] Comment on above: Performed By: #### 1 3067979 ####[address] [address] Hemoglobin Ql (U) Negative Normal Negative [facility] Comment on above: Performed By: #### 1 6396505 ####[address] [address] Ketones (U) [Mass/Vol] Negative Normal Negative [facility] Comment on above: Performed By: #### 1 0150550 ####[address] [address] [place].plasma/[place] .RBC (Bld) [Mass ratio] 0-3 Normal 0-3 [facility] Comment on above: Performed By: #### 1 4605649 ####[address] [address] Nitrite Ql (U) Negative Normal Negative [facility] Comment on above: Performed By: #### 1 2086722 ####[address] [address] pH (U) 6.5 [pH] Invalid Interpretation Code 5.0-9.0 [facility] Comment on above: Performed By: #### 1 1847289 ####[address] [address] Protein (U) [Mass/Vol] Negative Normal Negative [facility] Comment on above: Performed By: #### 1 1348881 ####[address] [address] Specific gravity (U) [Rel density] <=1.005 Invalid Interpretation Code 1.005-1.030 [facility] Comment on above: Performed By: #### 1 7149575 ####[facility] [address] [place] [address] Type of Urine collection method Clean Catch Normal [facility] Comment on above: Performed By: #### 1 5222918 ####[facility] [address] [place] [address] Urobilinogen Qn (U) 0.2 {Nayla'U}/dL Normal 0.0-1.0 [facility] Comment on above: Performed By: #### 1 4093706 ####[facility] [address] [place] [address] WBC Auto Ql (U) Negative Normal Negative [facility] Comment on above: Performed By: #### 1 4370769 ####[facility] [address] [place] [address] WBC LM.HPF (Urine sed) [#/Area] 0-5 Normal 0-5 [facility] Comment on above: Performed By: #### 1 6635593 ####[facility] [address] [place] [address] Auto Diffon 09-25-2023 Basophils/100 WBC (Bld) 0.6 % Normal 0.0-2.0 [facility] Comment on above: Order Comment: Order Added by Discern Expert. Performed By: #### 2 385594, 4901135, 8551259, 2756756, 5441065, 10724824 ####[facility] [address] [place] [address] Basophils/Leukocytes Auto (Bld) [Pure # fraction] 0.1 E9/L Normal 0.0-0.2 [facility] Comment on above: Order Comment: Order Added by Discern Expert. Performed By: #### 2 355587, 0840066, 1416660, 8791745, 6901545, 95981112 ####[facility] [address] [place] [address] Eosinophils/100 WBC (Bld) 1.5 % Normal 0.0-8.0 [facility] Comment on above: Order Comment: Order Added by Quinton Expert. Performed By: #### 2 922671, 3182369, 8062603, 1436227, 7536259, 77205745 ####[address] [place] [address] Eosinophils/Leukocytes Auto (Bld) [Pure # fraction] 0.1 E9/L Normal 0.0-0.5 [facility] Comment on above: Order Comment: Order Added by Quinton Expert. Performed By: #### 2 306348, 3019818, 2135025, 9781060, 3335508, 01278634 ####[address] [address] Lymphocytes/100 WBC (Bld) 15.3 % Normal 14.0-50.0 [facility] Comment on above: Order Comment: Order Added by Quinton Expert. Performed By: #### 2 713725, 1762645, 4178874, 1425395, 2433135, 17959457 ####[address] [address] Lymphocytes/Leukocytes Auto (Bld) [Pure # fraction] 1.5 E9/L Normal 1.0-4.0 [facility] Comment on above: Order Comment: Order Added by Quinton Expert. Performed By: #### 2 382523, 7951563, 2397925, 7074341, 6619180, 00478317 ####[address] [address] Monocytes/100 WBC (Bld) 7.4 % Normal 4.0-14.0 [facility] Comment on above: Order Comment: Order Added by Quinton Expert. Performed By: #### 2 681303, 9007397, 1406084, 8244934, 0074145, 50174507 ####[address] [place] [address] Monocytes/Leukocytes Auto (Bld) [Pure # fraction] 0.7 E9/L Normal 0.2-1.0 [facility] Comment on above: Order Comment: Order Added by Discern Expert. Performed By: #### 2 996064, 6608717, 9109508, 2226220, 5953707, 12921994 ####[facility] [address] [place] [address] Neutrophils/100 WBC (Bld) 75.2 % High 36.0-75.0 [facility] Comment on above: Order Comment: Order Added by Discern Expert. Performed By: #### 2 333592, 9915770, 4929327, 7041786, 1175276, 17448512 ####[facility] [address] [place] [address] Neutrophils/Leukocytes Auto (Bld) [Pure # fraction] 7.1 E9/L Normal 2.0-7.5 [facility] Comment on above: Order Comment: Order Added by Discern Expert. Performed By: #### 2 002642, 4097663, 5452234, 8033364, 9256613, 99832512 ####[facility] [address] [place] [address] BMP 09-25-2023 Creatinine [Mass/Vol] 0.9 mg/dL Normal 0.5-1.3 [facility] Comment on above: Performed By: #### 2 229799, 3027782, 7520376, 3214891, 5222636, 98822504 ####[facility] [address] [place] [address] Urea nitrogen [Mass/Vol] 20 mg/dL Normal 5-21 [facility] Comment on above: Performed By: #### 2 640378, 5494608, 3161449, 0630192, 6198663, 19777105 ####[facility] [address] [place] [address] Urea nitrogen/Creatinine [Mass ratio] 22 No Units High 10-20 [facility] Comment on above: Performed By: #### 2 309719, 3310661, 2468312, 2083714, 6058717, 19343986 ####[facility] [address] [place] [address] Anion gap [Moles/Vol] 10 mmol/L Normal 6-16 [facility] Comment on above: Performed By: #### 2 389677, 3585684, 3213303, 6622392, 7726038, 77061159 ####[facility] [address] [place] [address] Calcium [Mass/Vol] 10.4 mg/dL Normal 8.9-11.1 [facility] Comment on above: Performed By: #### 2 765535, 5509635, 2265510, 1928571, 1961888, 08035646 ####[facility] [address] [place] [address] Chloride [Moles/Vol] 101 mmol/L Normal 101-111 [facility] Comment on above: Performed By: #### 2 251946, 3458296, 0860924, 8548338, 5259903, 62127484 ####[facility] [address] [place] [address] CO2 [Moles/Vol] 27 mmol/L Normal 21-31 [facility] Comment on above: Performed By: #### 2 374386, 2613184, 7037061, 0331091, 1511030, 72597898 ####[facility] [address] [place] [address] Glucose [Mass/Vol] 155 mg/dL Normal 55-199 [facility] Comment on above: Result Comment: If t his glucose result represents a fasting glucose, interpretation should refer to the following reference range: 55-99 mg/dL Performed By: #### 2 680754, 9541234, 2066492, 0160569, 0224406, 71963583 ####[facility] [address] [place] [address] Potassium [Moles/Vol] 4.0 mmol/L Normal 3.5-5.3 [facility] Comment on above: Performed By: #### 2 559994, 6892015, 8598275, 7392960, 3300294, 36887229 ####[facility] [address] [place] [address] Sodium [Moles/Vol] 134 mmol/L Low 135-145 [facility] Comment on above: Performed By: #### 2 889318, 5071208, 2294201, 1566391, 7928226, 78798358 ####[address] [place] [address] CBC w/ Auto Diffon 3 Erythrocyte distribution width (RBC) [Ratio] 15.3 % High 10.9-14.2 [facility] Comment on above: Performed By: #### 2 190507, 4171485, 1887339, 4132328, 1481752, 79583602 ####[address] [address] Hematocrit (Bld) [Volume fraction] 38.4 % Normal 34.0-46.0 [facility] Comment on above: Performed By: #### 2 123049, 1024007, 9427800, 1970322, 4433953, 20807688 ####[address] [address] Hemoglobin (Bld) [Mass/Vol] 13.0 g/dL Normal 12.0-16.0 [facility] Comment on above: Performed By: #### 2 492132, 1240935, 5786342, 5703961, 9316692, 56728283 ####[address] [address] MCH (RBC) [Entitic mass] 29.4 pg Normal 27.0-34.0 [facility] Comment on above: Performed By: #### 2 698973, 4963470, 3254181, 7738507, 4358932, 88862334 ####[address] [place] [address] MCHC (RBC) [Mass/Vol] 33.9 g/dL Normal 31.4-36.0 [facility] Comment on above: Performed By: #### 2 957811, 8899107, 7436358, 3560695, 0512206, 39104658 ####[facility] [address] [place] [address] MCV (RBC) [Entitic vol] 86.6 fL Normal 80.0-100.0 [facility] Comment on above: Performed By: #### 2 283988, 1797327, 7438212, 9877095, 4655189, 17962400 ####[address] [address] Platelet mean volume (Bld) [Entitic vol] 9.5 fL Normal 6.4-10.8 [facility] Comment on above: Performed By: #### 2 001990, 9492099, 4950663, 5978823, 1777084, 27906093 ####[address] [address] Platelets (Bld) [#/Vol] 207.0 E9/L Normal 150.0-500.0 [facility] Comment on above: Performed By: #### 2 587720, 5412226, 5725957, 1099733, 1302578, 27237382 ####[address] [address] RBC (Bld) [#/Vol] 4.4 E12/L Normal 4.3-5.9 [facility] Comment on above: Performed By: #### 2 021189, 3082665, 9225071, 3694798, 1573524, 63080566 ####[address] [address] WBC corrected for nucl RBC Auto (Bld) [#/Vol] 9.5 E9/L Normal 4.0-11.0 [facility] Comment on above: Performed By: #### 2 524240, 4366751, 7135128, 6543699, 8999227, 52083378 ####[address] [place] [address] CHEMISTRYOrdered By: SYSTEM SYSTEM on 09-25-2023 Albumin [...] 74 mL/min/1.73 m2 Normal >=59mL/min/[address] [facility] Chem S Comment on above: Interpretive Data: C hronic kidney disease could be indicated at eGFR's of less than 60 mL/min/1.73m2. Kidney failure is indicated at less than 15 mL/min/1.73m2. Globulin (S) [Mass/Vol] 4.0 g/dL Normal 1.4 - 4.0 gm/dL [facility] Remisol Glucose [Mass/Vol] 155 mg/dL Normal 55 - 199 mg/dL [facility] Remisol Comment on above: Interpretive Data: I f this glucose result represents a fasting glucose, interpretation should refer to the following reference range: 55-99 mg/dL Lipase [Catalytic activity/Vol] 39 U/L Normal 13 - 58 unit/L [facility] Remisol Potassium [Moles/Vol] 4.0 mmol/L Normal 3.5 - 5.3 mmol/L FT Remisol Protein [Mass/Vol] 7.9 g/dL High 6.0 - 7.8 gm/dL [facility] Remisol Sodium [Moles/Vol] 134 mmol/L Low 135 - 145 mmol/L [facility] Remisol Urea nitrogen [Mass/Vol] 20 mg/dL Normal 5 - 21 mg/dL [facility] Remisol Urea nitrogen/Creatinine [Mass ratio] 22 mg/mg High 10 - 20 [facility] Remisol Consent for Treatmenton 09-01 Consent for Treatment [id number] .00TIFF Normal [facility] ED Clinical Summaryon 2022 ED Clinical Summary [place] [id number] ED Clinical Summary Person Information Name: ALIYA MOORE Hilary/[facility] Age: 57 Years : 1965 Sex: Female Language: Maldivian PCP: BREA JJ CNP Marital Status: Visit [...] 09/25/2023 21:57:44 09/25/2023 21:57:44 09/25/2023 21:57:44 ADDRESS: [address] [place] [address] [address] [facility] [phone] PHYS DOC NOTES: MEDICAL INFORMATION: Prescriptions Given: [facility], [address] [place], [place] [phone], [phone] dicyclomine (Bentyl 10 mg Cap) 1 Capsules [...] day. fluticasone nasal (fluticasone Nasal 0.05 mg/inh [place]) 2 Sprays Nasal Inhalation every day. each [...] Mouth every day. potassium chloride (Potassium Chloride (Pjr-Efrl-Cqb 10) 10 mEq oral tablet, extended release) pramipexole (pramipexole 0.5 mg oral tablet) 1 Tablets By Mouth 3 times a day. theophylline (theophylline 300 mg ER Tab) 1 Tablets By Mouth every 12 hours. trazodone (traZODONE 50 mg Tab) 1 Tablets By Mouth once a day (at bedtime). PATIENT EDUCATION INFORMATION: Instructions: Cholelithiasis Follow up: With: Address: When: [facility] [address] [place] [address] 3, 2nd Floor, [address] [place] [phone] Business (1) In 3 days 09/28/2023 With: Address: When: BREA JJ [address], [place] [phone] Business (1) In 3 days DIAGNOSIS: AP (abdominal pain); Cholelithiasis; N&V (nausea and vomiting) Normal [facility] ED Note-Physicianon 09-25-20 ED Note-Physician Basic [...] and Complexity of Problems Differential Diagnosis: [] [facility] Data External documents reviewed: N/A My [...] # 28 cap(s), Refills(s) 0, [facility], 175, cm, 09/25/23 18:25:00 EST, Height/Length [...] q8hr, # 12 tab(s), Refills(s) 0, [facility], 175, cm, 09/25/23 18:25:00 EST, Height/Length [...] Clinic In 3 days 09/28/2023 EST [address] [facility] 3, 2nd Floor, [address] [place] [phone] Business (1) Additional Instructions: BREA JJ In 3 days [address] [place] [address] [phone] Business (1) Additional Instructions: Patient Education Cholelithiasis Problem List/Past Medical History Ongoing Smoker Historical No qualifying data Procedure/Surgical History delivery (05/05/1987), delivery (06/20/1984), Cyst, Knee. Medications Inpatient morphine 4 mg/mL Inj, 4 mg= 1 mL, IV Push, Once Zofran 4 mg/2 mL Injection, 4 mg= 2 mL, IV Push, Once Home albuterol- (more content not included)... Normal [facility] Comment on above: Result Comment: Elec [...] to break (more content not included)... Normal [facility] ED Patient Summaryon 023 ED Patient Summary [place] [id number] Patient Discharge Instructions Person Information Name: ALIYA MOORE Age: 57 Years Arrival Date: 09/25/2023 18:09:44 Discharge Diagnosis: AP (abdominal pain); Cholelithiasis; N&V (nausea and vomiting) Primary Care Physician: BREA JJ CNP Provider Information Primary Provider: Moses Fischer DO Advanced Equestrian Trainer:None The exam and treatment you received in the Emergency Department were for an urgent problem and are not intended as complete care. It is important that you follow up with a doctor, nurse practitioner, or physician?s assistant site manager for ongoing care. If your symptoms become [...] With: Address: When: [facility] [address] [facility] [address] 2[address] Floor, [address] [place] [phone] Business (1) In 3 days 09/28/2023 With: Address: When: BREA JJ [address] [place], [place] [phone] Business (1) In 3 days In the event that this physician does not participate in your insurance network, please consult with your insurance company to find a nearby participating provider. Patient Education Materials: Cholelithiasis A MESSAGE TO ALL PATIENTS REGARDING OPIOIDS PRESCRIPTION OPIOIDS: WHAT YOU NEED TO KNOW Prescription opioids can be used to help relieve gzhdqoua-sm-hsqmkx pain and are often prescribed following a [...] and overdos (more content not included)... Normal [facility] HEMATOLOGYOrdered By: SYSTEM SYSTEM on 09-25-2023 [...] 09-25-2023 Albumin [Mass/Vol] 3.9 g/dL Normal 3.3-5.0 [facility] Comment on above: Performed By: #### 2 591251, 7948664, 1489403, 2018532, 7171177, 38194182 ####[facility] [address] [place] [address] Albumin/Globulin (S) [Mass conc ratio] 1.0 Low 1.1-2.2 [facility] Comment on above: Performed By: #### 2 778385, 9203210, 3792700, 9626084, 6901477, 37365621 ####[address] [address] ALP [Catalytic activity/Vol] 66 Int._Unit/L Normal 21-98 [facility] Comment on above: Performed By: #### 2 409436, 5629044, 5728461, 2853136, 9910134, 59628448 ####[address] [address] ALT No additional P-5'-P [Catalytic activity/Vol] 25 Int._Unit/L Normal 6-46 [facility] Comment on above: Performed By: #### 2 616415, 2127164, 1622908, 8099992, 4533286, 57558721 ####[address] [address] AST [Catalytic activity/Vol] 25 Int._Unit/L Normal 5-43 [facility] Comment on above: Performed By: #### 2 543725, 3396600, 5713113, 6003471, 4976369, 69755528 ####[facility] [address] [place] [address] Bilirubin [Mass/Vol] 0.2 mg/dL Normal 0.0-1.1 [facility] Comment on above: Performed By: #### 2 701055, 2400764, 9023651, 7375536, 9343916, 11079583 ####[facility] [address] [place] [address] Bilirubin.direct [Mass/Vol] 0.1 mg/dL Normal 0.1-0.4 [facility] Comment on above: Performed By: #### 2 153920, 3970676, 2666476, 0993393, 7621354, 70213701 ####[facility] [address] [place] [address] Bilirubin.indirect [Mass or moles/Vol] 0.1 mg/dL Normal 0.1-0.9 [facility] Comment on above: Performed By: #### 2 855228, 3743970, 6344482, 0745551, 8174542, 04244208 ####[address] [place] [address] Globulin (S) [Mass/Vol] 4.0 g/dL Normal 1.4-4.0 [facility] Comment on above: Performed By: #### 2 271271, 9838744, 9519059, 9137079, 4634946, 64464528 ####[address] [address] Protein [Mass/Vol] 7.9 g/dL High 6.0-7.8 [facility] Comment on above: Performed By: #### 2 474382, 0583181, 7316053, 0904101, 2394942, 64491619 ####[address] [place] [address] Lipase Levelon 09-25-2023 Lipase [Catalytic activity/Vol] 39 U/L Normal 13-58 [facility] Comment on above: Performed By: #### 2 551562, 7644257, 3073920, 6065609, 4273247, 82307561 ####[address] [place] [address] RAD - Preliminary Cat Scan R eporton 09-25-2023 RAD - Preliminary Cat Scan Report [id number]# 1.00TIFF Normal [facility] URINALYSISOrdered By: Tanya Nathan on 09-25-2023 [...] PM) Normal Negative [facility] UA Auto SS Waterv[place].plasma/[place] .RBC (Bld) [Mass ratio] 0-3 /HPF Normal [...] [facility] UA Auto SS Urobilinogen Qn (U) 0.1069535 {Nayla'U}/dL Normal 0.0 - 1.0 EU/dL [facility] UA Auto SS WBC Auto Ql (U) Negative (09/25/23 9:53 PM) Normal Negative [facility] UA Auto SS WBC LM.HPF (Urine sed) [#/Area] 0-5 /HPF Normal 0-5/HPF [facility] UA Auto SS eGFRon 09-25-2023 GFR/1.73 sq M.predicted among non-blacks MDRD (S/P/Bld) [Vol rate/Area] 74 mL/min/1.73 m2 Normal >=59 [facility] Comment on above: Order Comment: Order added by Discern Expert. Result Comment: Fiber Optics Supervisor nita kidney disease could be indicated at eGFR's of less than 60 mL/min/1.73m2. Kidney failure is indicated at less than 15 mL/min/1.73m2. Performed By: #### 2 741234, 7472514, 6004094, 8340587, 4999272, 95754999 ####[facility] [address] [place] [address] 36on 09-08-2023 36 Approving, but needs appt for additional refills. Normal [facility] Auto Diffon 09-08-2023 Basophils/100 WBC (Bld) 0.2 % Normal 0.0-2.0 [facility] Comment on above: Order Comment: Order Added by Discern Expert. Performed By: #### 2 805942, 3350821, 6790739, 02164923, 6126498, 06815558, 37347309, 71568641 ####[facility] [address] [place] [address] Basophils/Leukocytes Auto (Bld) [Pure # fraction] 0.0 E9/L Normal 0.0-0.2 [facility] Comment on above: Order Comment: Order Added by Discern Expert. Performed By: #### 2 290291, 8789283, 4290807, 39334708, 5255658, 45920138, 78622738, 37733654 ####[facility] [address] [place] [address] Eosinophils/100 WBC (Bld) 0.8 % Normal 0.0-8.0 [facility] Comment on above: Order Comment: Order Added by Discern Expert. Performed By: #### 2 103719, 5017925, 6583257, 45547984, 0283222, 36846451, 70870474, 91492688 ####[facility] [address] [place] [address] Eosinophils/Leukocytes Auto (Bld) [Pure # fraction] 0.1 E9/L Normal 0.0-0.5 [facility] Comment on above: Order Comment: Order Added by [place]inton Expert. Performed By: #### 2 763289, 1062691, 4818448, 58136477, 5730325, 55642906, 52073896, 57959988 ####[facility] [address] [place] [address] Lymphocytes/100 WBC (Bld) 11.3 % Low 14.0-50.0 [facility] Comment on above: Order Comment: Order Added by Discern Expert. Performed By: #### 2 057381, 0851513, 1134561, 24260430, 7255807, 87479955, 54938181, 49843743 ####[address] [address] Lymphocytes/Leukocytes Auto (Bld) [Pure # fraction] 1.0 E9/L Normal 1.0-4.0 [facility] Comment on above: Order Comment: Order Added by Quinton Expert. Performed By: #### 2 910319, 7497063, 3591228, 66662161, 9298189, 95841770, 36022634, 89580628 ####[address] [address] Monocytes/100 WBC (Bld) 6.9 % Normal 4.0-14.0 [facility] Comment on above: Order Comment: Order Added by Quinton Expert. Performed By: #### 2 281073, 2700705, 0076569, 31170447, 6782953, 36800851, 15997340, 51226943 ####[address] [place] [address] Monocytes/Leukocytes Auto (Bld) [Pure # fraction] 0.6 E9/L Normal 0.2-1.0 [facility] Comment on above: Order Comment: Order Added by Quinton Expert. Performed By: #### 2 667583, 3784058, 3490274, 80811344, 9289378, 64375583, 59202188, 56127255 ####[facility] [address] [place] [address] [place] [address] Neutrophils/100 WBC (Bld) 80.8 % High 36.0-75.0 [facility] Comment on above: Order Comment: Order Added by Discern Expert. Performed By: #### 2 829951, 3512713, 2705984, 75561501, 6825400, 63452548, 90708977, 78514690 ####[facility] [address] [place] [address] Neutrophils/Leukocytes Auto (Bld) [Pure # fraction] 7.1 E9/L Normal 2.0-7.5 [facility] Comment on above: Order Comment: Order Added by Discern Expert. Performed By: #### 2 533102, 5627796, 2977094, 32737393, 3804386, 27447458, 37160021, 01048321 ####[facility] [address] [place] [address] BMP 09-08-2023 Creatinine [Mass/Vol] 1.2 mg/dL Normal 0.5-1.3 [facility] Comment on above: Performed By: #### 2 445737, 1684700, 3352891, 79591085, 7907546, 14532157, 10829680, 50090927 ####[facility] [address] [place] [address] Urea nitrogen [Mass/Vol] 26 mg/dL High 5-21 [facility] Comment on above: Performed By: #### 2 009845, 2861711, 0934725, 41240906, 7482738, 01860550, 31425351, 15607888 ####[facility] [address] [place] [address] Urea nitrogen/Creatinine [Mass ratio] 22 No Units High 10-20 [facility] Comment on above: Performed By: #### 2 861843, 9357620, 6793180, 01892577, 0519970, 24980646, 06358209, 62545798 ####[facility] [address] [place] [address] Anion gap [Moles/Vol] 13 mmol/L Normal 6-16 [facility] Comment on above: Performed By: #### 2 804178, 9461228, 0057142, 96738580, 1755772, 59868524, 16424051, 71074139 ####[facility] [address] [place] [address] Calcium [Mass/Vol] 9.9 mg/dL Normal 8.9-11.1 [facility] Comment on above: Performed By: #### 2 424880, 0659142, 4514756, 87461632, 3339374, 45951752, 50174549, 37725587 ####[facility] [address] [place] [address] Chloride [Moles/Vol] 99 mmol/L Low 101-111 [facility] Comment on above: Performed By: #### 2 281255, 1224407, 3475592, 07246401, 2089554, 15008663, 78011232, 54281197 ####[facility] [address] [place] [address] CO2 [Moles/Vol] 28 mmol/L Normal 21-31 [facility] Comment on above: Performed By: #### 2 761478, 3161181, 9072628, 61527820, 8174208, 76368519, 99384535, 96107446 ####[facility] [address] [place] [address] Glucose [Mass/Vol] 126 mg/dL Normal 55-199 [facility] Comment on above: Result Comment: If t his glucose result represents a fasting glucose, interpretation should refer to the following reference range: 55-99 mg/dL Performed By: #### 2 035578, 2645808, 5656437, 55176238, 7580828, 05679030, 30173936, 09610942 ####[facility] [address] [place] [address] Potassium [Moles/Vol] 4.0 mmol/L Normal 3.5-5.3 [facility] Comment on above: Performed By: #### 2 795264, 1080773, 6777276, 87320352, 4264713, 62104294, 93894633, 59923351 ####[facility] [address] [place] [address] Sodium [Moles/Vol] 136 mmol/L Normal 135-145 [facility] Comment on above: Performed By: #### 2 733160, 0517922, 5611912, 24480416, 1582031, 60318848, 47014890, 84455476 ####[facility] [address] [place] [address] BNPon 09-08-2023 Int Ctr BNP Pass Normal [facility] Comment on above: Performed By: #### 2 037678, 3426984, 5622026, 57680960, 7381842, 73094638, 67216027, 56944562 ####[address] [place] [address] Natriuretic peptide B (Bld) [Mass/Vol] 21 pg/mL Normal 5-80 [facility] Comment on above: Performed By: #### 2 215849, 0347702, 9018625, 66911358, 3180327, 64420456, 29964767, 15989333 ####[address] [place] [address] CBC w/ Auto Diffon 3 Erythrocyte distribution width (RBC) [Ratio] 15.1 % High 10.9-14.2 [facility] Comment on above: Performed By: #### 2 057677, 7304034, 2789737, 15868376, 6012437, 48374483, 76875256, 29626992 ####[facility] [address] [place] [address] Hematocrit (Bld) [Volume fraction] 38.8 % Normal 34.0-46.0 [facility] Comment on above: Performed By: #### 2 243731, 7089478, 9129402, 02447438, 8613150, 78754321, 29197012, 91318353 ####[address] [place] [address] Hemoglobin (Bld) [Mass/Vol] 13.0 g/dL Normal 12.0-16.0 [facility] Comment on above: Performed By: #### 2 481587, 5037343, 5463365, 85978418, 0551605, 96142666, 18688214, 20571059 ####[address] [address] MCH (RBC) [Entitic mass] 29.4 pg Normal 27.0-34.0 [facility] Comment on above: Performed By: #### 2 607566, 3742781, 6666917, 48010529, 9754387, 18426249, 48179515, 33591805 ####[place] [address] MCHC (RBC) [Mass/Vol] 33.5 g/dL Normal 31.4-36.0 [facility] Comment on above: Performed By: #### 2 501210, 4269658, 2753379, 87124367, 5483743, 50246642, 36150546, 95441351 ####[address] [address] MCV (RBC) [Entitic vol] 87.6 fL Normal 80.0-100.0 [facility] Comment on above: Performed By: #### 2 464050, 6865033, 9550506, 38364012, 6100672, 68791934, 03737235, 56615673 ####[address] [address] Platelet mean volume (Bld) [Entitic vol] 10.7 fL Normal 6.4-10.8 [facility] Comment on above: Performed By: #### 2 895174, 7688605, 3514206, 70592966, 5561312, 31858392, 35508462, 05410834 ####[facility] [address] [place] [address] Platelets (Bld) [#/Vol] 195.0 E9/L Normal 150.0-500.0 [facility] Comment on above: Performed By: #### 2 596002, 8483023, 2764615, 28948782, 2221027, 49653797, 08916250, 15064048 ####[facility] [address] [place] [address] RBC (Bld) [#/Vol] 4.4 E12/L Normal 4.3-5.9 [facility] Comment on above: Performed By: #### 2 930779, 3453145, 3138986, 02066896, 2890783, 16457238, 82029753, 52051885 ####[facility] [address] [place] [address] WBC corrected for nucl RBC Auto (Bld) [#/Vol] 8.8 E9/L Normal 4.0-11.0 [facility] Comment on above: Performed By: #### 2 853677, 7939712, 5148476, 30339357, 3351359, 28700508, 44608834, 31689140 ####[facility] [address] [place] [address] CHEMISTRYOrdered By: SYSTEM SYSTEM on 09-08-2023 Troponin [...] Sensitivity Troponin I Instructions For Use, [facility], May 2018) Albumin [Mass/Vol] 3.8 g/dL Normal [...] 52 mL/min/1.73 m2 Low >=59mL/min/[address] [facility] Chem S Comment on above: Interpretive Data: [...] Sensitivity Troponin I Instructions For Use, [facility], May 2018) Urea nitrogen [Mass/Vol] 26 mg/dL High 5 - 21 mg/dL [facility]isol Urea nitrogen/Creatinine [Mass ratio] 22 mg/mg High 10 - 20 [facility] CHEMISTRYOrdered By: Yanet Davis on 09-08-2023 Natriuretic peptide B (Bld) [Mass/Vol] 21 pg/mL Normal 5 - 80 pg/mL [facility] HemeManSS COAGULATIONOrdered By: Dov Patel on 09-08-2023 aPTT Coag (PPP) [Time] 37.3 s High 25.1 - 36.5 second(s) [facility] Auto Coag Comment on above: Interpretive Data: [...] the same coagulation reagent and instrumentation as [facility]. Currently there are no coagulation studies available worldwide for children to 14 days, and no normal ranges. Heparin therapeutic range (represented by Anti-Factor Xa activity of 0.2 - 0.4 U/mL) corresponds to PTT of 56.6 - 109.0 sec. INR Coag (PPP) [Relative time] 1.2 {INR} Invalid Interpretation Code [facility] Auto Coag Comment on above: Interpretive Data: I NR results are specifically intended to assess patients stabilized on long-term Anticoagulation therapy suggested INR s Less Intensive Anticoagulation 2.0 3.0 Conventional Range 3.0 4.5 PT Coag (PPP) [Time] 13.7 s High 9.4 - 1 2.5 second(s) [facility] Auto Coag Comment on above: Interpretive Data: [...] the same coagulation reagent and instrumentation as [facility]. Currently there are no coagulation studies available [...] 370 Contrast amount in ml's: 68 Normal [facility] Consent for Treatmenton Consent for Treatment [id number]# 1.00TIFF Normal [facility] Discharge Instructionson Discharge Instructions [id number]# 1.00TIFF Normal [facility] ED Clinical Summaryon 2022 ED Clinical Summary [place] [id number] ED Clinical Summary Person Information Name: ALIYA MOORE [place] Age: 57 Years : 1965 Sex: Female Language: Maldivian PCP: BREA JJ CNP Marital Status: Visit [...] 09/08/2023 20:29:11 09/08/2023 20:29:11 09/08/2023 20:29:11 ADDRESS: [address] [place] [address] [address] [facility] [id number] [facility] DOC NOTES: MEDICAL INFORMATION: Prescriptions Given: [...] day. fluticasone nasal (fluticasone Nasal 0.05 mg/inh [place]) 2 Sprays Nasal Inhalation every day. each [...] Mouth every day. potassium chloride (Potassium Chloride (Ves-Ymjn-Iso 10) 10 mEq oral tablet, extended release) [...] With: Address: When: BREA JJ [address], [place] [phone] Business (1) In 3 days DIAGNOSIS: Acute chest pain Normal [facility] ED Note-Physicianon 09-08-20 ED Note-Physician Patient [...] precautions. Patient was discharged stable condition. Normal [facility] Comment on above: Result Comment: Elec [...] History O (more content not included)... Normal [facility] Comment on above: Result Comment: Elec [...] these instructions at home: Medicines ? Take bsdm-geh-ybhhzxh and prescription medicines only as told by [...] told by your (more content not included)... [facility] ED Patient Summaryon 023 ED Patient Summary [address] [address] [address] Patient Discharge Instructions Person Information Name: ALIYA MOORE Age: 57 Years Arrival Date: 09/08/2023 16:32:21 Discharge Diagnosis: Acute chest pain Primary Care Physician: BREA JJ CNP Provider Information Primary Provider: Ramses Hair DO Advanced Equestrian Trainer:None The exam and treatment you received in the Emergency Department were for an urgent problem and are not intended as complete care. It is important that you follow up with a doctor, nurse practitioner, or physician?s assistant site manager for ongoing care. If your symptoms become [...] With: Address: When: BREA JJ [address], [place] [phone] Business (1) In 3 days In the event that this physician does not participate in your insurance network, please consult with your insurance company to find a nearby participating provider. Patient Education Materials: Nonspecific Chest Pain, Adult A MESSAGE TO ALL PATIENTS REGARDING OPIOIDS PRESCRIPTION OPIOIDS: WHAT YOU NEED TO KNOW Prescription opioids can be used to help relieve xbxbwaig-we-jaxwcr pain and are often prescribed following a [...] be struggling with addiction, tell your health day care home provider and ask for guidance or call [facility]?S National Helpline at 9-384-260-HELP. v Source: [place] (more content not included)... Normal [facility] EMS Documentationon 09-08-20 EMS Documentation Please click on link to see report Normal [facility] Comment on above: Result Comment: Miss [...] Bilirubin.indirect [Mass or moles/Vol] UTC Abnormal 0.1-0.9 [facility] Comment on above: Result Comment: Resu lt verified by Discern Rule. Performed result UTC (Unable to Calculate) was sent as an Alpha code due the inability to calculate a valid numeric value. Performed By: #### 2 042002, 8803054, 9279616, 84564538, 2400961, 73131652, 62791528, 83437628 ####[facility] [address] [place] [address] Albumin [Mass/Vol] 3.8 g/dL Normal 3.3-5.0 [facility] Comment on above: Performed By: #### 2 970438, 8629545, 9490201, 26619070, 8787508, 11623092, 20192679, 06132020 ####[facility] [address] [place] [address] Albumin/Globulin (S) [Mass conc ratio] 0.8 Low 1.1-2.2 [facility] Comment on above: Performed By: #### 2 014790, 6887255, 8193719, 95277963, 8730783, 13647765, 21907916, 65751552 ####[address] [place] [address] ALP [Catalytic activity/Vol] 68 Int._Unit/L Normal 21-98 [facility] Comment on above: Performed By: #### 2 760036, 6657565, 3724293, 46760136, 1394290, 22391317, 96841357, 56413376 ####[address] [address] ALT No additional P-5'-P [Catalytic activity/Vol] 18 Int._Unit/L Normal 6-46 [facility] Comment on above: Performed By: #### 2 635820, 3673476, 4334862, 15255483, 5458578, 72596662, 47574032, 79666128 ####[address] [address] AST [Catalytic activity/Vol] 20 Int._Unit/L Normal 5-43 [facility] Comment on above: Performed By: #### 2 318763, 9292787, 4456765, 08115836, 7145996, 16329917, 36706524, 82415943 ####[address] [address] Bilirubin [Mass/Vol] 0.4 mg/dL Normal 0.0-1.1 [facility] Comment on above: Performed By: #### 2 289599, 1611340, 4652717, 06789674, 4745385, 78459675, 66522613, 33868975 ####[address] [address] Globulin (S) [Mass/Vol] 4.5 g/dL High 1.4-4.0 [facility] Comment on above: Performed By: #### 2 994677, 8557527, 8644931, 25954925, 2825712, 39724491, 72698012, 89972273 ####[facility] [address] [place] [address] Protein [Mass/Vol] 8.3 g/dL High 6.0-7.8 [facility] Comment on above: Performed By: #### 2 575561, 4881607, 1771850, 51356970, 6662266, 87223654, 29888905, 58149739 ####[facility] [address] [place] [address] Bilirubin.direct [Mass/Vol] mg/dL Normal 0.1-0.4 [facility] Comment on above: Performed By: #### 2 297312, 4010434, 8133247, 07839098, 3404555, 46877093, 39471944, 01792594 ####[facility] [address] [place] [address] Monitor Recordon 09-08-2023 Monitor Record [id number]# 1.00TIFF Normal [facility] Monitor Record [id number]# 1.00TIFF Normal [facility] PT & PTTon 09-08-2023 aPTT Coag (PPP) [Time] 37.3 second(s) High 25.1-36.5 [facility] Comment on above: Result Comment: Para [...] the same coagulation reagent and instrumentation as [facility]. Currently there are no coagulation studies available worldwide for children to 14 days, and no normal ranges. Heparin therapeutic range (represented by Anti-Factor Xa activity of 0.2 - 0.4 U/mL) corresponds to PTT of 56.6 - 109.0 sec. Performed By: #### 2 579700, 2487896, 0044374, 22813352, 8401880, 49643495, 34924526, 08903138 ####[facility] [address] [place] [address] INR Coag (PPP) [Relative time] 1.2 {INR} Invalid Interpretation Code [facility] Comment on above: Result Comment: INR results are specifically intended to assess patients stabilized on long-term Anticoagulation therapy suggested INR?s ?Less Intensive Anticoagulation? 2.0 ? 3.0 Conventional Range 3.0 ? 4.5 Performed By: #### 2 309273, 7893334, 0546229, 36363581, 9879016, 72241420, 75487568, 78135610 ####[facility] [address] [place] [address] PT Coag (PPP) [Time] 13.7 second(s) High 9.4-12.5 [facility] Comment on above: Result Comment: 15 [...] the same coagulation reagent and instrumentation as [facility]. Currently there are no coagulation studies available worldwide for children to 14 days, and no normal ranges. Performed By: #### 2 788610, 4780921, 3090252, 55106593, 8611430, 20454687, 99578228, 02030802 ####[facility] [address] [place] [address] Troponin 0 Hr.on 09-08-2023 Troponin I.cardiac [Mass/Vol] 4.70 pg/mL Low 10.10-27.10 [facility] Comment on above: Result Comment: The 95% CI (Confidence Interval) PPV (Positive Predictive Value) for myocardial infarction in females is 38 pg/mL, in males 51 pg/mL. The results should be used in conjunction with clinical conditions of myocardial infarction. (Access High Sensitivity Troponin I Instructions For Use, [employer], May 2018) Performed By: #### 2 841867, 2568333, 8498436, 07076347, 6145081, 77200973, 67213786, 40669691 ####[facility] [address] [place] [address] Troponin 3 Hr.on 09-08-2023 Troponin I.cardiac [Mass/Vol] 4.20 pg/mL Low 10.10-27.10 [facility] Comment on above: Result Comment: The 95% CI (Confidence Interval) PPV (Positive Predictive Value) for myocardial infarction in females is 38 pg/mL, in males 51 pg/mL. The results should be used in conjunction with clinical conditions of myocardial infarction. (Access High Sensitivity Troponin I Instructions For Use, [employer], May 2018) Performed By: #### 1 2465860 ####[facility] [address] [place] [address] eGFRon 09-08-2023 GFR/1.73 sq M.predicted among non-blacks MDRD (S/P/Bld) [Vol rate/Area] 52 mL/min/1.73 m2 Low >=59 [facility] Comment on above: Order Comment: Order added by Discern Expert. Result Comment: Fiber Optics Supervisor nita kidney disease could be indicated at eGFR's of less than 60 mL/min/1.73m2. Kidney failure is indicated at less than 15 mL/min/1.73m2. Performed By: #### 2 274226, 9748258, 3300851, 14111630, 1626058, 38329613, 16817175, 48407766 ####[facility] [address] [place] [address] Office Visiton 07-20-2023 Follow-up visit [id number] Aliya Moore 1965 F Date Provider Department Center 07/20/2023 Chey-MARLENE SOTO CARD [facility] Family History Problem Relation Age of Onset Coronary artery disease Other Pulmonary embolism Other Deep vein thrombosis Other Family Status - Relation Status Age at Other Level of Service:[address] LA OFFICE/OUTPATIENT ESTABLISHED LOW MDM 20-29 MIN Normal [facility] Consent for Treatmenton 07-01 Consent for Treatment [id number] .00CD:127 Normal [facility] Oncology Noteon 07-19-2023 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 Pt started in May. Normal [facility] Comment on above: Result Comment: Elec [...] was referred to our hematology office at [facility] for Thrombophilia work up and decision about duration of anticoagulation for the acute PE diagnosed on . She is a 57-year-old female cigarette smoker with history of hypertension, nop-rtnhctf-fgopwzkmo diabetes mellitus, obesity, chronic hypoxic respiratory failure on 3 L home oxygen, and depression who presented on 06/16/[address] [facility] ER with complaints of right-sided chest pain [...] puff(s), Inhalation, BID fluticasone Nasal 0.05 mg/inh [place] 2 spray(s), Nasal, Daily furosemide 20 mg Tab 20 mg = 1 tab(s), Oral, Daily gabapentin 300 mg Cap 300 mg = 1 cap(s), Oral, BID hydrochlorothiazide-l isinopril 25 mg-20 mg Tab 1 tab(s), Oral, Daily lamotrigine 25 mg Tab 25 mg = 1 tab(s), Oral, BID pioglitazone 15 mg Tab 15 mg = 1 tab(s), Oral, Daily Potassium Chloride (Lpg-Ucie-Cgo 10) 10 mEq oral tablet, extended release [...] list: All Problems Smoker / SNOMED CT 765900753 / Confirmed Added secondary to documentation in Social History. Histories Past Medical History: No active or resolved past medical history items have been selected or recorded. Family History: History is unknown. Procedure history: delivery (SNOMED CT 3379151400) on 05/05/1987 at 21 Years. delivery (SNOMED CT 4080571712) on 06/20/1984 at 18 Years. Cyst (SNOMED CT 1920860177). Comments: 06/28/2023 11:00 EDT - Lindsay Prisca A Removal of cyst of right foot. Knee (SNOMED CT 871216156). Comments: 06/28/2023 11:01 EDT - Prisca Montoya A surgery Social History Social & Psychosocial Habits Alcohol Comment: den - 06/16/2023 16:10 - Kezia Catalan Substance Abuse Comment: - 06/16/2023 16:10 - Aundrea (more content not included)... Normal [facility] .VIPER VENOM MIXING STUDYon 07-08-2023 dRVVT w 1:1 PNP Coag (PPP) [Time] 47.4 second(s) High 0.0-40.4 [facility] Comment on above: Result Comment: Perf ormed at: [facility] [address] [id number] MD Tony Laird Performed By: #### 1 24268914, 42934562, 6622584, 34781976, 64736905, 73381616, 67847209, 4611178, 6416746, 7122026, 23611165, 7967670 ####[facility] [address] [place] [address] MARY KATE ABS Ig G,M,Aon 3 Cardiolipin IgA IA Qn (S) <9 Invalid Interpretation Code 0-11 [facility] Comment on above: Result Comment: Nega tive: <12 Indeterminate: 12 - 20 Low-Med Positive: >20 - 80 High Positive: >80 Performed at: [facility] [address] [id number] PhD Matthew Funez Performed By: #### 1 41612606, 84880074, 8833149, 89527752, 02897802, 55378970, 61173071, 7810103, 2348933, 9083922, 86582047, 4805797 ####[facility] [address] [place] [address] Cardiolipin IgG IA Qn (S) <9 Invalid Interpretation Code 0-14 [facility] Comment on above: Result Comment: Nega tive: <15 Indeterminate: 15 - 20 Low-Med Positive: >20 - 80 High Positive: >80 Performed By: #### 1 75147842, 73978529, 3963415, 41539174, 86974615, 99986651, 98697977, 5991486, 6672886, 9002411, 01495978, 2040306 ####[facility] [address] [place] [address] Cardiolipin IgM IA Qn (S) <9 Invalid Interpretation Code 0-12 [facility] Comment on above: Result Comment: Nega tive: <13 Indeterminate: 13 - 20 Low-Med Positive: >20 - 80 High Positive: >80 Performed By: #### 1 64846272, 54162729, 7011888, 09826391, 91209545, 51415218, 32571178, 8553482, 8947022, 7706347, 04494993, 0801859 ####[facility] [address] [place] [address] Beta-2 Glycoprot.i Aon 07-08 Beta 2 glycoprotein 1 IgA Qn (S) 19 Invalid Interpretation Code 0-25 [facility] Comment on above: Result Comment: The reference interval reflects a 3SD or 99th percentile interval, which is thought to represent a potentially clinically significant result in accordance with the International Consensus Statement on the classification criteria for definitive antiphospholipid syndrome (APS). J Thromb Haem 2006;4:295-306. Performed By: #### 1 56152649, 43465531, 0222565, 03322361, 78263689, 74076106, 84119353, 6420474, 0417517, 9377998, 77872020, 6676356 ####[facility] [address] [place] [address] Beta 2 glycoprotein 1 IgG Qn (S) <9 Invalid Interpretation Code 0-20 [facility] Comment on above: Result Comment: The reference interval reflects a 3SD or 99th percentile interval, which is thought to represent a potentially clinically significant result in accordance with the International Consensus Statement on the classification criteria for definitive antiphospholipid syndrome (APS). J Thromb Haem 2006;4:295-306. Performed By: #### 1 22330301, 61252260, 0557658, 74630784, 13382121, 92132489, 14647472, 4817682, 3326346, 0139566, 45145667, 3590469 ####[facility] [address] [place] [address] Beta 2 glycoprotein 1 IgM Qn (S) <9 Invalid Interpretation Code 0-32 [facility] Comment on above: Result Comment: The reference interval reflects a 3SD or 99th percentile interval, which is thought to represent a potentially clinically significant result in accordance with the International Consensus Statement on the classification criteria for definitive antiphospholipid syndrome (APS). J Thromb Haem 2006;4:295-306. Performed at: [address] [id number] MD Tony Laird Performed By: #### 1 67511249, 12522032, 2603130, 11695547, 63544646, 72638539, 02229814, 2648852, 2713646, 1646623, 75432345, 4662799 ####[facility] [address] [place] [address] Factor II, DNA Analysison F2 gene c.40825N>A [facility] (Bld/Tiss) Comment Invalid Interpretation Code [facility] Comment on above: Result Comment: Resu [...] the F2 gene and a c.1601G>A (p. Xgp856Xvj) variant in the F5 gene (commonly referred to as Factor V Leiden) have an approximately 20- fold increased risk for venous thromboembolism. Risks are likely to be even higher in more complex genotype combinations involving the F2 c.*97G>A variant and Factor V Leiden (PMID: 03428971). Additional risk factors include but are not [...] health care providers to discuss results at [phone] (0498). Test Details: Variant analyzed: c.*97G>A, previously referred to as B86045I Methods/Limitations: DNA analysis of the F2 gene [...] developed and its performance characteristics determined by [employer]. It has not been cleared or approved by the Food and Drug Administration. References: Aries S, Enma AK, Mauricio R, Dre WW, Gabriel CASTILLO; ACMG Professional Practice and Guidelines Committee. Addendum: [place] [employer] consensus statement on factor V Leiden mutation testing. [employer]. 2020Jan 02. doi: 10.1038/h88765-727-65695-f. PMID: 21006167. Yarely CROCKETT. Prothrombin Thrombophilia. 2005May 24 [Updated 2020Dec 04]. In: Allen MP, Tim HH, Renee RA, et al., editors. Aren(Marlyn) [Internet]. [place] ([place]): [facility]; 1924-5697. Available from: https://www.ncbi.nlm.nih.gov/books/VIO6575/ Real S, Enma AK, Remy X, Gerry B, Santi EB, Amparo P, Humberto CS; [facility] Laboratory Child Care Giver Committee. Venous thromboembolism laboratory testing (factor V Leiden and factor II c.*97G>A), 2018 update: a technical standard of the [place] [employer] and [employer]omics (ACMG). [employer]. 2018 Sep;20(12):0302-5756. doi: 10.1038/[id number]-d. Epub 2017Aug 04. PMID: 86798297. Performed By: #### 1 99062189, 93016029, 7516686, 26714437, 02641319, 92825697, 29781129, 0027724, 4012884, 7218664, 69636024, 3466800 ####[facility] [address] [place] [address] Factor V Leidenon 07-08-2023 F5 gene p.Yax312Ptk [facility] (Bld/Tiss) Comment Invalid Interpretation Code [facility] Comment on above: Result Comment: Resu lt: c.1601G>A (p.Seb935Ptv) - Not Detected This result is not associated with an increased risk for venous thromboembolism. See Additional Clinical Information and Comments. Additional Clinical Information: Venous thromboembolism is a multifactorial disease influenced by genetic, environmental, and circumstantial risk factors. The c.1601G>A (p. Obd325Uec) variant in the F5 gene, commonly referred [...] c.*97G>A variant and Factor V Leiden (PMID: 81048832). Additional risk factors include but are not [...] health care providers to discuss results at [phone] (2572). Test Details: Variant Analyzed: c.1601G>A (p. Ztj662Cac), referred to as Factor V Leiden Methods/Limitations: [...] developed and its performance characteristics determined by [employer]. It has not been cleared or approved by the Food and Drug Administration. References: Aries S, Enma AK, Mauricio R, Dre WW, Gabriel JH; ACMG Professional Practice and Guidelines Committee. Addendum: [place] [employer] consensus statement on factor V Leiden mutation testing. [employer]. 2020Jan 02. doi: 10.1038/[id number]-k. PMID: 04370972. Yarely CROCKETT. Factor V Leiden Thrombophilia. 1998March 13 (Updated 2017Nov 03). In: Allen MP, Tim HH, Renee RA, et al., editors. GeneReviews(Marlyn) (Internet). [place] ([place]): [facility]; 2024-1494. Available from: https://www.ncbi.nlm.nih.gov/books/TXW6112/ Real S, Enma AK, Jonel X, Gerry B, Santi EB, Amparo P, Humberto CS; [facility] Laboratory Child Care Giver Committee. Venous thromboembolism laboratory testing (factor V Leiden and factor II c.*97G>A), 2018 update: a technical standard of the [place] [employer] and Genomics (ACMG). Tasha Med. 2018 Sep;20(12):0000-9000. doi: 10.1038/[id number]-w. Epub 2017Aug 04. PMID: 88441719. Performed By: #### 1 41109588, 58436032, 3071785, 66535178, 30539029, 12712536, 35731841, 1248901, 7998227, 1023128, 34741488, 6465403 ####[facility] [address] [place] [address] Lupus Anticoagon 07-08-2023 aPTT.lupus sensitive Coag (PPP) [Time] 33.8 second(s) Invalid Interpretation Code 0.0-43.5 [facility] Comment on above: Performed By: #### 1 29165482, 40364699, 4680694, 75074905, 82292312, 64948764, 93437256, 1395323, 2004989, 8921723, 36692896, 1086302 ####[facility] [address] [place] [address] dRVVT Coag (PPP) [Time] 57.5 second(s) High 0.0-47.0 [facility] Comment on above: Result Comment: Perf ormed at: [facility] [place] [address] [place] [address] [id number] MD Tony Laird Performed By: #### 1 27148363, 62490609, 5953675, 91854385, 32812692, 18501855, 94794675, 6924046, 2305624, 3244227, 25843417, 3717886 ####[facility] [address] [place] [address] Lupus anticoagulant two screening tests W Reflex Coag (PPP) [Interp] Comment: Invalid Interpretation Code [facility] Comment on above: Result Comment: No l upus anticoagulant was detected. These results are consistent with specific inhibitors to one or more common pathway factors (X, V, II or fibrinogen). Performed at: [address] [id number] MD Tony Laird Performed By: #### 1 55653319, 98263177, 8522754, 53056550, 90077021, 33433224, 90413556, 7789922, 2867080, 0890086, 89192937, 0702649 ####[facility] [address] [place] [address] dRVVT CONFIRMon 07-08-2023 dRVVT/dRVVT.excess phospholipid Coag (PPP) [Ratio] 1.0 ratio Invalid Interpretation Code 0.8-1.2 [facility] Comment on above: Result Comment: Perf ormed at: [address] [id number] MD Tony Laird Performed By: #### 1 08026675, 70866765, 2113272, 95433978, 02254035, 99650570, 40198060, 9756616, 1152389, 2078304, 39044871, 8883722 ####[facility] [address] [place] [address] Consenton 07-07-2023 Consent [id number]# 1.00CD:127 Normal [facility] Lab Miscellaneous-LCon 07-01 Lab Miscellaneous COMMENT Invalid Interpretation Code [facility] Comment on above: Result Comment: Test Ordered: 830653 Protein S-Functional Protein S-Functional 98 % Reference Range: 63-140 Protein S activity may be falsely increased (masking an abnormal, low result) in patients receiving direct Xa inhibitor (e.g., rivaroxaban, apixaban, edoxaban) or a direct thrombin inhibitor (e.g., dabigatran) anticoagulant treatment due to assay interference by these drugs. Performed at: [address] [id number] PhD Matthew Funez Performed By: #### 1 [id number] ####[address] [address] Protein S-antigenon 07-01-20 23 Protein S Ag actual/normal IA (PPP) [Relative mass conc] 99 % Invalid Interpretation Code 60-150 [facility] Comment on above: Result Comment: This test was developed and its performance characteristics determined by [facility]. It has not been cleared or approved by the Food and Drug Administration. Performed By: #### 1 3785347 ####[address] [address] Protein S Free Ag actual/normal IA (PPP) [Relative mass conc] 93 % Invalid Interpretation Code 61-136 [facility] Comment on above: Result Comment: Perf ormed at: [address] [place], [place] [id number] MD Tony Laird Performed By: #### 1 9565106 ####[address] [address] Lab Miscellaneous-LCon 06-30 Lab Miscellaneous COMMENT Invalid Interpretation Code [facility] Comment on above: Result Comment: Test Ordered: 697830 Protein C-Functional Protein C-Functional 140 % BN Reference Range: 73-180 Performed at: [address] [id number] PhD Matthew Funez Performed By: #### 1 [id number] ####[address] [address] Result Comment: Test Ordered: 143295 Antithrombin Activity Antithrombin Activity 146 [H ] % BN Reference Range: 75-135 An elevated antithrombin activity is of no known clinical significance. Direct Xa inhibitor anticoagulants such as rivaroxaban, apixaban and edoxaban will lead to spuriously elevated antithrombin activity levels possibly masking a deficiency. Performed at: [address] [id number] PhD Matthew Funez Auto Diffon 06-28-2023 Basophils/100 WBC (Bld) 0.6 % Normal 0.0-2.0 [facility] Comment on above: Order Comment: Order Added by Discern Expert. Performed By: #### 1 82749954, 38806159, 5196638, 36988532, 68389280, 83460898, 40227887, 0324067, 9501968, 9697560, 72853763, 2471346 ####[facility] [address] [place] [address] Basophils/Leukocytes Auto (Bld) [Pure # fraction] 0.0 E9/L Normal 0.0-0.2 [facility] Comment on above: Order Comment: Order Added by Discern Expert. Performed By: #### 1 46890841, 56924026, 3866124, 38937617, 76946426, 22792611, 75509953, 3377917, 1895934, 5430309, 63007531, 2531780 ####[facility] [address] [place] [address] Eosinophils/100 WBC (Bld) 0.7 % Normal 0.0-8.0 [facility] Comment on above: Order Comment: Order Added by Discern Expert. Performed By: #### 1 75077687, 64895538, 4535645, 70229630, 05728393, 41999149, 51469481, 7932490, 6823218, 7161904, 44748164, 7910910 ####[facility] [address] [place] [address] Eosinophils/Leukocytes Auto (Bld) [Pure # fraction] 0.1 E9/L Normal 0.0-0.5 [facility] Comment on above: Order Comment: Order Added by Discern Expert. Performed By: #### 1 95914633, 87761851, 6261717, 55638424, 35134444, 62583110, 21250289, 4341878, 7864011, 1791473, 78048705, 5671028 ####[facility] [address] [place] [address] Lymphocytes/100 WBC (Bld) 12.9 % Low 14.0-50.0 [facility] Comment on above: Order Comment: Order Added by Discern Expert. Performed By: #### 1 14586178, 93999107, 6178820, 30210368, 27095287, 82007066, 92327121, 3551508, 7523349, 6922584, 26643180, 2953300 ####[address] [address] Lymphocytes/Leukocytes Auto (Bld) [Pure # fraction] 1.0 E9/L Normal 1.0-4.0 [facility] [facility] Comment on above: Order Comment: Order Added by Discern Expert. Performed By: #### 1 13220437, 18883420, 6783302, 94347719, 63600049, 79823300, 36089591, 5341255, 5632953, 0270624, 37097982, 4128100 ####[address] [address] Monocytes/100 WBC (Bld) 6.8 % Normal 4.0-14.0 [facility] Comment on above: Order Comment: Order Added by Discern Expert. Performed By: #### 1 50503609, 29175797, 8212802, 71364215, 73206451, 07755493, 62120663, 6525899, 6670961, 0983845, 55814998, 3935402 ####[address] [address] Monocytes/Leukocytes Auto (Bld) [Pure # fraction] 0.5 E9/L Normal 0.2-1.0 [facility] Comment on above: Order Comment: Order Added by Discern Expert. Performed By: #### 1 81926368, 50309998, 8587791, 39252867, 26974891, 26111645, 76959415, 2347061, 0929726, 0140695, 98517069, 3241581 ####[facility] [address] [place] [address] Neutrophils/100 WBC (Bld) 79.0 % High 36.0-75.0 [facility] Comment on above: Order Comment: Order Added by Discern Expert. Performed By: #### 1 35927576, 75305112, 6122704, 59347214, 08276670, 97038004, 31163227, 3363124, 0815349, 4171429, 30241738, 5251294 ####[facility] [address] [place] [address] Neutrophils/Leukocytes Auto (Bld) [Pure # fraction] 6.1 E9/L Normal 2.0-7.5 [facility] Comment on above: Order Comment: Order Added by Discern Expert. Performed By: #### 1 74579071, 57697151, 0534650, 12499088, 32178977, 21494574, 14061135, 6898721, 7039670, 1015457, 18832376, 4353450 ####[facility] [address] [place] [address] CBC w/ Auto Diffon 3 Erythrocyte distribution width (RBC) [Ratio] 14.7 % High 10.9-14.2 [facility] Comment on above: Performed By: #### 1 32358257, 11297874, 1144909, 07305816, 61235799, 21102418, 12669940, 2527001, 8216443, 3851015, 47209161, 4509538 ####[facility] [address] [place] [address] Hematocrit (Bld) [Volume fraction] 38.9 % Normal 34.0-46.0 [facility] Comment on above: Performed By: #### 1 20477225, 99168167, 7653984, 69778995, 19463188, 23742908, 81666261, 9247939, 3052714, 3596384, 73851432, 5522298 ####[facility] [address] [place] [address] Hemoglobin (Bld) [Mass/Vol] 13.1 g/dL Normal 12.0-16.0 [facility] Comment on above: Performed By: #### 1 58995384, 63950233, 8465730, 99716260, 44334172, 01528903, 68689171, 5297887, 0961319, 4222848, 49737755, 6951437 ####[facility] [address] [place] [address] MCH (RBC) [Entitic mass] 29.4 pg Normal 27.0-34.0 [facility] Comment on above: Performed By: #### 1 35213059, 70610562, 1842854, 80496773, 91699434, 44253168, 18266006, 0078371, 5773864, 0190154, 72074426, 9331770 ####[facility] [address] [place] [address] MCHC (RBC) [Mass/Vol] 33.6 g/dL Normal 31.4-36.0 [facility] Comment on above: Performed By: #### 1 24732341, 03608813, 1863252, 64756217, 76755477, 08201674, 88135596, 3104442, 1931466, 0268543, 74065723, 7004241 ####[facility] [address] [place] [address] MCV (RBC) [Entitic vol] 87.4 fL Normal 80.0-100.0 [facility] Comment on above: Performed By: #### 1 43208802, 20866411, 2524665, 48839329, 39574264, 02121950, 78183482, 3611648, 3140177, 3878587, 99228619, 8498031 ####[facility] [address] [place] [address] Platelet mean volume (Bld) [Entitic vol] 10.7 fL Normal 6.4-10.8 [facility] Comment on above: Performed By: #### 1 35202976, 54216247, 0834224, 23036053, 81310107, 69341555, 29738225, 0741976, 1874378, 9131461, 76157681, 3888502 ####[facility] [address] [place] [address] Platelets (Bld) [#/Vol] 183.0 E9/L Normal 150.0-500.0 [facility] Comment on above: Performed By: #### 1 85654818, 13222628, 9576655, 08797460, 24990442, 85589133, 22532985, 3550123, 0073546, 5055926, 93158290, 1992406 ####[address] [address] RBC (Bld) [#/Vol] 4.5 E12/L Normal 4.3-5.9 [facility] Comment on above: Performed By: #### 1 41134680, 05880263, 1588711, 00611308, 42165328, 00245269, 29585942, 3438642, 0859755, 7148902, 39800436, 8720103 ####[address] [place] [address] WBC corrected for nucl RBC Auto (Bld) [#/Vol] 7.7 E9/L Normal 4.0-11.0 [facility] Comment on above: Performed By: #### 1 94410229, 02016427, 7557906, 32502710, 17971575, 12217912, 69107700, 2642671, 8932631, 8144046, 61729368, 0606147 ####[address] [place] [address] CMPon 06-28-2023 Albumin [Mass/Vol] 3.9 g/dL Normal 3.3-5.0 [facility] Comment on above: Performed By: #### 1 48036033, 94546214, 4515946, 52081958, 74958499, 79926429, 41441083, 3439369, 1568629, 8118318, 75442281, 1290865 ####[facility] [address] [place] [address] Albumin/Globulin (S) [Mass conc ratio] 0.9 Low 1.1-2.2 [facility] Comment on above: Performed By: #### 1 99199854, 59406192, 1840114, 86108436, 21179958, 06356123, 57632521, 6740856, 8031023, 0319030, 87494254, 6808125 ####[facility] [address] [place] [address] ALP [Catalytic activity/Vol] 69 Int._Unit/L Normal 21-98 [facility] Comment on above: Performed By: #### 1 83477639, 31085291, 3318734, 76566473, 86322756, 59030882, 90005605, 6042212, 0874530, 3628163, 67124645, 3702112 ####[facility] [address] [place] [address] ALT No additional P-5'-P [Catalytic activity/Vol] 19 Int._Unit/L Normal 6-46 [facility] Comment on above: Performed By: #### 1 22255265, 88539026, 3269035, 47616091, 89952530, 04414671, 63019275, 0819017, 0158452, 4980210, 04305949, 5761372 ####[facility] [address] [place] [address] Anion gap [Moles/Vol] 13 mmol/L Normal 6-16 [facility] Comment on above: Performed By: #### 1 24928535, 82743039, 9022306, 42889299, 43212322, 66938428, 33884887, 3541686, 6171673, 3469447, 31279186, 5399913 ####[address] [place] [address] AST [Catalytic activity/Vol] 22 Int._Unit/L Normal 5-43 [facility] Comment on above: Performed By: #### 1 52945601, 02812829, 7097325, 19852723, 17380162, 86332934, 45841601, 3215708, 1459551, 0861629, 59635669, 2598999 ####[address] [place] [address] Bilirubin [Mass/Vol] 0.4 mg/dL Normal 0.0-1.1 [facility] Comment on above: Performed By: #### 1 40446176, 48100414, 8067760, 84036411, 01329784, 07826029, 75852365, 6093986, 8498001, 8550694, 32250811, 8660892 ####[address] [address] Calcium [Mass/Vol] 9.8 mg/dL Normal 8.9-11.1 [facility] Comment on above: Performed By: #### 1 51582199, 18641128, 2843187, 60091110, 38036371, 91723283, 49794505, 3449893, 9413913, 8510668, 67658212, 6292442 ####[facility] [address] [place] [address] Chloride [Moles/Vol] 98 mmol/L Low 101-111 [facility] Comment on above: Performed By: #### 1 77343592, 55864750, 8997468, 12348150, 17171375, 64458160, 57417968, 1734505, 8330218, 4755601, 80016171, 8827671 ####[facility] [address] [place] [address] CO2 [Moles/Vol] 29 mmol/L Normal 21-31 [facility] Comment on above: Performed By: #### 1 63793541, 35741198, 6936867, 28277663, 07296986, 09782792, 78877006, 7244263, 7449461, 7279636, 37196003, 1940328 ####[facility] [address] [place] [address] Creatinine [Mass/Vol] 0.9 mg/dL Normal 0.5-1.3 [facility] Comment on above: Performed By: #### 1 08484351, 37407086, 4861147, 07664251, 06111584, 52703069, 59974113, 2079470, 6067196, 1113521, 13214533, 4690543 ####[facility] [address] [place] [address] Globulin (S) [Mass/Vol] 4.3 g/dL High 1.4-4.0 [facility] Comment on above: Performed By: #### 1 29912738, 94925026, 5427160, 94819521, 76806998, 29175433, 65263544, 7453927, 5355325, 5293632, 53055402, 5676689 ####[facility] [address] [place] [address] Glucose [Mass/Vol] 155 mg/dL Normal 55-199 [facility] Comment on above: Result Comment: If t his glucose result represents a fasting glucose, interpretation should refer to the following reference range: 55-99 mg/dL Performed By: #### 1 79385122, 76816126, 5240804, 25663824, 76659080, 02847968, 21125560, 2523418, 0676472, 9699098, 13439450, 4662217 ####[facility] [address] [place] [address] Potassium [Moles/Vol] 3.9 mmol/L Normal 3.5-5.3 [facility] Comment on above: Performed By: #### 1 86098342, 47954078, 7556645, 65002711, 50818612, 89977525, 40531177, 9955128, 2656169, 7348206, 70047370, 4852997 ####[facility] [address] [place] [address] Protein [Mass/Vol] 8.2 g/dL High 6.0-7.8 [facility] Comment on above: Performed By: #### 1 58934463, 14031468, 2208220, 99154147, 92109728, 97787456, 45565840, 2574182, 3098256, 9509091, 03440777, 4387918 ####[facility] [address] [place] [address] Sodium [Moles/Vol] 136 mmol/L Normal 135-145 [facility] Comment on above: Performed By: #### 1 56936612, 87336213, 3616456, 14567534, 65636406, 16970288, 93190866, 3267646, 3991563, 7225890, 45364619, 3011297 ####[facility] [address] [place] [address] Urea nitrogen [Mass/Vol] 22 mg/dL High 5-21 [facility] Comment on above: Performed By: #### 1 16829150, 98182606, 3479170, 78285505, 82810480, 75666873, 43902314, 3701363, 2954614, 5693820, 83659250, 6247100 ####[facility] [address] [place] [address] Urea nitrogen/Creatinine [Mass ratio] 24 No Units High 10-20 [facility] Comment on above: Performed By: #### 1 20389560, 96940134, 0471108, 17622156, 55940316, 58981462, 04300251, 3159321, 4904817, 3407891, 24190439, 4408289 ####[facility] [address] [place] [address] Consent for Treatmenton 06-01 Consent for Treatment [id number]#1 .00CD:127 Normal [facility] Consent for Treatment [id number]#1 .00CD:127 Normal [facility] D-Dimeron 06-28-2023 Fibrin D-dimer FEU (PPP) [Mass/Vol] 392 [id number] Normal 215-500 [facility] Comment on above: Result Comment: This [...] infections Liver cirrhosis Performed By: #### 1 65832487, 04826337, 3615895, 81437254, 58604109, 88284630, 21591100, 9015946, 3673363, 2342110, 04105344, 0759890 ####[facility] [address] [place] [address] Lab Miscellaneous-LCon 06-28 Lab Miscellaneous orderable test Invalid Interpretation Code [facility] Comment on above: Order Comment: order able test Performed By: #### 1 891807198 ####[facility] [address] [place] [address] Test Code 892163 Invalid Interpretation Code [facility] Comment on above: Order Comment: order able test Performed By: #### 1 344593110 ####[facility] [address] [place] [address] Test Code 497218 Invalid Interpretation Code [facility] Comment on above: Performed By: #### 1 504403611 ####[facility] [address] [place] [address] Test Code 660080 Invalid Interpretation Code [facility] Comment on above: Performed By: #### 1 214888398 ####[facility] [address] [place] [address] Test Code 919882 Invalid Interpretation Code [facility] Comment on above: Performed By: #### 1 684756896 ####[facility] [address] [place] [address] Test Name Prot s, ant Invalid Interpretation Code [facility] Comment on above: Order Comment: order able test Performed By: #### 1 492247519 ####[facility] [address] [place] [address], [place] [address] Test Name Prot C, func Invalid Interpretation Code [facility] Comment on above: Performed By: #### 1 092377119 ####[facility] [address] [place] [address] Test Name AntiThromb III Invalid Interpretation Code [facility] Comment on above: Performed By: #### 1 362453169 ####[facility] [address] [place] [address] Test Name Prot S, func Invalid Interpretation Code [facility] Comment on above: Performed By: #### 1 [id number] ####[facility] [address] [place] [address] Oncology Noteon 06-28-2023 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 Normal [facility] Comment on above: Result Comment: Dorene rodriguezally [...] was referred to our hematology office at [facility] for Thrombophilia work up and decision about duration of anticoagulation for the acute PE diagnosed on . She is a 57-year-old female cigarette smoker with history of hypertension, usp-plsepru-hncyhgnjt diabetes mellitus, obesity, chronic hypoxic respiratory failure on 3 L home oxygen, and depression who presented on 06/16/[address] [facility] ER with complaints of right-sided chest pain [...] puff(s), Inhalation, BID fluticasone Nasal 0.05 mg/inh [place] 2 spray(s), Nasal, Daily furosemide 20 mg Tab 20 mg = 1 tab(s), Oral, Daily gabapentin 300 mg Cap 300 mg = 1 cap(s), Oral, BID hydrochlorothiazide-l isinopril 25 mg-20 mg Tab 1 tab(s), Oral, Daily lamotrigine 25 mg Tab 25 mg = 1 tab(s), Oral, BID pioglitazone 15 mg Tab 15 mg = 1 tab(s), Oral, Daily Potassium Chloride (Imu-Ktjm-Krt 10) 10 mEq oral tablet, extended release [...] list: All Problems Smoker / SNOMED CT 177813288 / Confirmed Added secondary to documentation in Social History. Histories Past Medical History: No active or resolved past medical history items have been selected or recorded. Family History: History is unknown. Procedure history: delivery (SNOMED CT 1922576911) on 05/05/1987 at 21 Years. delivery (SNOMED CT 1835624314) on 06/20/1984 at 18 Years. Cyst (SNOMED CT 0643170359). Comments: 06/28/2023 11:00 EDT - Prisca Montoya Removal of cyst of right foot. Knee (SNOMED CT 865431775). Comments: 06/28/2023 11:01 EDT - Prisca Montoya [...] Rate 16 (more content not included)... Normal [facility] eGFRon 06-28-2023 GFR/1.73 sq M.predicted among non-blacks MDRD (S/P/Bld) [Vol rate/Area] 74 mL/min/1.73 m2 Normal >=59 [facility] Comment on above: Order Comment: Order added by Discern Expert. Result Comment: Fiber Optics Supervisor nita kidney disease could be indicated at eGFR's of less than 60 mL/min/1.73m2. Kidney failure is indicated at less than 15 mL/min/1.73m2. Performed By: #### 1 70122682, 88351350, 0535266, 98179347, 27810423, 94574076, 57899989, 7947361, 1656520, 3499090, 36208122, 2476092 ####[facility] [address] [place] [address] Discharge Instructionson Discharge Instructions [id number]# 1.00CD:127 Normal [facility] CHEMISTRYOrdered By: Lab ROP User on 06-17-2023 Glucose [Mass/Vol] 109 mg/dL High 55 - 99 mg/dL [facility] POC Subsection Comment on above: Result Comment: Rafaela VELASQUEZ POC Device SN [id number] Invalid Interpretation Code FT POC Subsection POC User ID [id number] Invalid Interpretation Code FT POC Subsection POC Username BRENDA KHAN Invalid Interpretation Code [facility] POC Subsection Glucose [Mass/Vol] 133 mg/dL High 55 - 99 mg/dL [facility] POC Subsection Comment on above: Result Comment: Rafaela VELASQUEZ POC Device SN [id number] Invalid Interpretation Code FT POC Subsection POC User ID [id number] Invalid Interpretation Code FT POC Subsection POC Username FAVIOLA MURO Invalid Interpretation Code FT POC Subsection Glucose [Mass/Vol] 109 mg/dL High 55 - 99 mg/dL [facility] POC Subsection Comment on above: Result Comment: Rafaela VELASQUEZ POC Device SN [id number] Invalid Interpretation Code FT POC Subsection POC User ID [id number] Invalid Interpretation Code FT POC Subsection POC Username BRENDA KHAN Invalid Interpretation Code [facility] POC Subsection CHEMISTRYOrdered By: Kimberley Freeman on 06-17-2023 HbA1c (Bld) [Mass fraction] 5.7 % Normal <=5.9% [facility] ChemAutoSS CHEMISTRYOrdered By: SYSTEM SYSTEM on 06-17-2023 Troponin I.cardiac [Mass/Vol] 5.20 pg/mL Low 10.10 - 27.10 pg/mL [facility] Remisol Capillary Glucose POCon 05-31 Glucose [Mass/Vol] 109 mg/dL High 55-99 [facility] Comment on above: Result Comment: Rafaela VELASQUEZ Performed By: #### 2 [id number] ####[facility] [address] [place] [address] Glucose [Mass/Vol] 133 mg/dL High 55-99 [facility] Comment on above: Result Comment: Rafaela VELASQUEZ Performed By: #### 2 32685283 ####[facility] [address] [place] [address] Glucose [Mass/Vol] 109 mg/dL High 55-99 [facility] Comment on above: Result Comment: Rafaela VELASQUEZ Performed By: #### 2 [id number] ####[facility] [address] [place] [address] Discharge Note-Nursingon Discharge Note-Nursing ALIYA MOORE :1965 [...] care physician. This Is Your Medications List [facility] Prescription (ATORVASTATIN CALCIUM 40 MG TABLET) albuterol (Ventolin HFA 90 mcg/inh Aerosol-Adpt) albuterol-ipratropium (albuterol-ipratropiu m Inh Debby 3 mL UD) apixaban (Eliquis 5 mg oral tablet) aspirin (Aspirin Low Dose 81 mg oral enteric coated tablet) busPIRone (busPIRone 15 mg Tab) duloxetine (duloxetine 60 mg oral delayed release capsule) fluticasone (Flovent HFA 110 Aerosol) fluticasone nasal (fluticasone Nasal 0.05 mg/inh [place]) formoterol-glycopyrro late (Bevespi Aerosphere 9 mcg-4.8 mcg/inh inhalation aerosol) furosemide (furosemide 20 mg Tab) gabapentin (gabapentin 300 mg Cap) hydrochlorothiazide-l isinopril (hydrochlorothiazide- lisinopril 25 mg-20 mg Tab) lamotrigine (lamotrigine 25 mg Tab) multivitamin (Daily Harvinder oral tablet) pioglitazone (pioglitazone 15 mg Tab) potassium chloride (Potassium Chloride (Bou-Afsk-Qpa 10) 10 mEq oral tablet, extended release) [...] Christian When: 06/28/2023 11:00 AM EDT Where: [facility] [address] [place] [address] [place] [address]- Follow Up with BREA JJ When: Within 1 week Comments: A voice message is left with this office with your information so they can call you for a follow up appiontment. Please call them if you do not hear from them in a few days. Thank you. Where: [address] [place] [address] [phone] Business (1) Medications What How Much When [...] fluticasone nasal (fluticasone Nasal 0.05 mg/ inh [place]) 2 Sprays Nasal Inhalation Every day each [...] day 06/18 (more content not included)... Normal [facility] AvwB0owy 06-17-2023 HbA1c (Bld) [Mass fraction] 5.7 % Normal <=5.9 [facility] Comment on above: Performed By: #### 7 [id number] ####[facility] [address] [place] [address] Inpatient Clinical Summaryon 06-17-2023 Inpatient Clinical Summary [address] [address] Clinical Summary Person Information: Name: ALIYA MOORE Age: 57 Years : 1965 Sex: Female PCP: BREA JJ CNP Marital Status: Race: White Ethnicity: Non- or Language: Maldivian Visit Id: Visit Reason: Chest pain; MID STERNUM PAIN Speciality: Acuity: Enc Type: Observation Med Service: Medical Arrival: 06/16/2023 15:45:03 Discharge: Dispo Type: Admitted as IP to this Hosp Address: [address] [place] [address] [address] [facility] [phone] Provider Notes: Diagnosis: 1:Chest pain; 2:Acute pulmonary [...] day. fluticasone nasal (fluticasone Nasal 0.05 mg/inh [place]) 2 Sprays Nasal Inhalation every day. each [...] Mouth every day. potassium chloride (Potassium Chloride (Wsv-Hveo-Lhy 10) 10 mEq oral tablet, extended release) [...] With: Address: When: BREA JJ [address] [place], [place] [phone] Business (1) Within 1 week Comments: A voice message is left with this office with your information so they can call you for a follow up appiontment. Please call them if you do not hear from them in a few days. Thank you. With: Address: When: Ezekiel Christian [facility], [address] [place] [address] 06/28/2023 11:00 AM Type Location Start [facility] ONC [facility]28/[facility]23 11:00 AM 06/28/2023 11:45 AM Confirmed Patient Education Information: Normal [facility] Inpatient Patient Summaryon 06-17-2023 Inpatient Patient Summary [address] [address] Patient Discharge Instructions PERSON INFORMATION Name: ALIYA MOORE Date of : 1965 Current Date: 06/17/2023 09:58:26 PHYSICIANS Admitting Physician: Alex BARRIENTOS MD Primary Care Physician: BREA JJ CNP PCP Phone Number: [phone] Comment: Discharge Diagnosis: 1:Chest pain; 2:Acute pulmonary [...] With: Address: When: BREA JJ [address] [place], [place] [phone] Business (1) Within 1 week Comments: A voice message is left with this office with your information so they can call you for a follow up appiontment. Please call them if you do not hear from them in a few days. Thank you. With: Address: When: Ezekiel Christian [facility], [address] [place] [address] 06/28/2023 11:00 AM In the event that this physician does not participate in your insurance network, please consult with your insurance company to find a nearby participating provider. Type Location Start [facility] ONC Office Visit [facility] ([facility]) [facility] 06/28/2023 11:00 AM 06/28/2023 11:45 [...] ____ fluticasone nasal (fluticasone Nasal 0.05 mg/inh [place]) 2 Sprays Nasal Inhalation every day. each [...] Dose: ____ potassi (more content not included)... 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 Pt's will transport. Pt has POC here to go home on O2. CRM to follow. Eliquis $0. Pt aware. [facility] Comment on above: Result Comment: Elec tronically Signed By: Marcia Montgomery\Date and Time Signed: 06/17/23 09:44 EDT Monitor Recordon 06-17-2023 Monitor Record [id number]# 1.00CD:127 [facility] Monitor Record [id number]# 1.00CD:127 [facility] Monitor Record [id number]# 1.00CD:127 [facility] Monitor Record [id number]# 1.00CD:127 Normal [facility] Patient Education - Texton 0 06-17-2023 Patient Education - Text Normal [facility] Progress Note-Nurseon 2022 Progress Note-Nurse This RN cannot complete the Medication Reconciliation as to the fact that the Patient cannot recall the medications she is taking at home. The list will be available in the morning once the patients will be here in the hospital on 06/17/2023. Dr. Drummond was informed about this matter. On going care provided. Normal [facility] Troponin 6 Hr.on 06-17-2023 Troponin I.cardiac [Mass/Vol] 5.50 pg/mL Low 10.10-27.10 [facility] Comment on above: Result Comment: The 95% CI (Confidence Interval) PPV (Positive Predictive Value) for myocardial infarction in females is 38 pg/mL, in males 51 pg/mL. The results should be used in conjunction with clinical conditions of myocardial infarction. (Access High Sensitivity Troponin I Instructions For Use, [employer], May 2018) Performed By: #### 1 [id number] ####[facility] [address] [place] [address] Troponin 9 Hr.on 06-17-2023 Troponin I.cardiac [Mass/Vol] 5.20 pg/mL Low 10.10-27.10 [facility] Comment on above: Result Comment: The 95% CI (Confidence Interval) PPV (Positive Predictive Value) for myocardial infarction in females is 38 pg/mL, in males 51 pg/mL. The results should be used in conjunction with clinical conditions of myocardial infarction. (Access High Sensitivity Troponin I Instructions For Use, [employer], May 2018) Performed By: #### 1 [id number] ####[facility] [address] [place] [address] US LE Venous Duplex Bilatera danni 06-17-2023 [...] MD Transcribed by: NOHEMY Technologist: ALISSA Barkley [facility] XR Chest Single Viewon 06-17 XR [...] mGy = na DAP = na Normal [facility] Auto DiffOrdered By: SYSTEM SYSTEM on 06-16-2023 Basophils/100 WBC (Bld) 0.3 % Normal 0.0-2.0 [facility] HemeAutoSS Comment on above: Order Comment: Order Added by Discern Expert. Performed By: #### 2 412278, 2068815, 46992259, 1828393, 75889114, 01824196 ####[facility] [address] [place] [address] Basophils/Leukocytes Auto (Bld) [Pure # fraction] 0.0 E9/L Normal 0.0-0.2 [facility] HemeAutoSS Comment on above: Order Comment: Order Added by Quinton Expert. Performed By: #### 2 957461, 9313613, 21627065, 8880573, 93582075, 00196383 ####[address] [address] Eosinophils/100 WBC (Bld) 0.9 % Normal 0.0-8.0 [facility] HemeAutoSS Comment on above: Order Comment: Order Added by Quinton Expert. Performed By: #### 2 131829, 8931675, 68344403, 5996456, 99720653, 33986271 ####[address] [address] Eosinophils/Leukocytes Auto (Bld) [Pure # fraction] 0.1 E9/L Normal 0.0-0.5 [facility] HemeAutoSS Comment on above: Order Comment: Order Added by Quinton Expert. Performed By: #### 2 979125, 7711694, 48862260, 6130679, 75701419, 59605835 ####[address] [address] Lymphocytes/100 WBC (Bld) 14.3 % Normal 14.0-50.0 [facility] HemeAutoSS Comment on above: Order Comment: Order Added by Quinton Expert. Performed By: #### 2 125260, 0296189, 65615961, 3536273, 52771077, 06680957 ####[address] [address] Lymphocytes/Leukocytes Auto (Bld) [Pure # fraction] 1.2 E9/L Normal 1.0-4.0 [facility] HemeAutoSS Comment on above: Order Comment: Order Added by Quinton Expert. Performed By: #### 2 719561, 8772466, 94637741, 5637693, 03587513, 40070347 ####[address] [address] Monocytes/100 WBC (Bld) 8.8 % Normal 4.0-14.0 [facility] HemeAutoSS Comment on above: Order Comment: Order Added by Quinton Expert. Performed By: #### 2 524072, 9202526, 13148344, 5469903, 11511666, 44314418 ####[address] [place] [address] Monocytes/Leukocytes Auto (Bld) [Pure # fraction] 0.7 E9/L Normal 0.2-1.0 [facility] HemeAutoSS Comment on above: Order Comment: Order Added by Discern Expert. Performed By: #### 2 795758, 3444861, 68508660, 3923054, 20755417, 08491787 ####[address] [place] [address] Neutrophils/100 WBC (Bld) 75.7 % High 36.0-75.0 [facility] HemeAutoSS Comment on above: Order Comment: Order Added by Quinton Expert. Performed By: #### 2 297480, 2229492, 94504017, 4319450, 75810837, 69938869 ####[address] [address] Neutrophils/Leukocytes Auto (Bld) [Pure # fraction] 6.4 E9/L Normal 2.0-7.5 [facility] HemeAutoSS Comment on above: Order Comment: Order Added by Discern Expert. Performed By: #### 2 669463, 2230388, 33106515, 0977682, 38667314, 28349196 ####[address] [place] [address] BMPOrdered By: SYSTEM SYSTEM on 06-16-2023 Creatinine [Mass/Vol] 0.8 mg/dL Normal 0.5-1.3 [facility] C Remisol Comment on above: Performed By: #### 2 977524, 3709269, 83137066, 4628537, 55965293, 55667612 ####[address] [place] [address] Urea nitrogen [Mass/Vol] 16 mg/dL Normal 5-21 [facility] Remisol Comment on above: Performed By: #### 2 102140, 7888276, 39191311, 5793730, 42242788, 12565715 ####[facility] [address] [place] [address] Anion gap [Moles/Vol] 12 mmol/L Normal 6-16 [facility] Remisol Comment on above: Performed By: #### 2 127660, 2269804, 98946805, 1334473, 98450709, 63523610 ####[facility] [address] [place] [address] Calcium [Mass/Vol] 9.9 mg/dL Normal 8.9-11.1 [facility] R emisol Comment on above: Performed By: #### 2 967743, 2232005, 08640796, 6650426, 29937070, 06234384 ####[facility] [address] [place] [address] Chloride [Moles/Vol] 101 mmol/L Normal 101-111 [facility] Remisol Comment on above: Performed By: #### 2 659072, 9578413, 37870191, 8413652, 11693455, 04162986 ####[facility] [address] [place] [address] CO2 [Moles/Vol] 27 mmol/L Normal 21-31 [facility] Wes debby Comment on above: Performed By: #### 2 616924, 2436391, 51866448, 1191203, 16974378, 79841071 ####[facility] [address] [place] [address] Glucose [Mass/Vol] 129 mg/dL Normal 55-199 [facility] R emisol Comment on above: Result Comment: If t his glucose result represents a fasting glucose, interpretation should refer to the following reference range: 55-99 mg/dL Performed By: #### 2 048254, 0291387, 65752398, 0473595, 48633915, 52595637 ####[facility] [address] [place] [address] Potassium [Moles/Vol] 3.9 mmol/L Normal 3.5-5.3 [facility] C Remisol Comment on above: Performed By: #### 2 122633, 1742637, 71115656, 5685654, 13648870, 77351921 ####[facility] [address] [place] [address] Sodium [Moles/Vol] 136 mmol/L Normal 135-145 [facility] R emisol Comment on above: Performed By: #### 2 301485, 0532494, 27410733, 3759000, 87943280, 95027478 ####[facility] [address] [place] [address] BMPon 06-16-2023 Urea nitrogen/Creatinine [Mass ratio] 20 No Units Normal 10-20 [facility] Comment on above: Performed By: #### 2 711779, 6861074, 69465444, 2309042, 70115645, 23662422 ####[facility] [address] [place] [address] CBC w/ Auto DiffOrdered By: Yanet Davis on 06-16-2023 Erythrocyte distribution width (RBC) [Ratio] 14.8 % High 10.9-14.2 [facility] HemeAutoSS Comment on above: Performed By: #### 2 877176, 0076037, 61463409, 6258348, 02271294, 92667730 ####[address] [place] [address] Hematocrit (Bld) [Volume fraction] 40.0 % Normal 34.0-46.0 [facility] HemeAutoSS Comment on above: Performed By: #### 2 708494, 3385463, 67941957, 6498088, 96126648, 88416129 ####[facility] [address] [place] [address] Hemoglobin (Bld) [Mass/Vol] 13.5 g/dL Normal 12.0-16.0 [facility] HemeAutoSS Comment on above: Performed By: #### 2 130896, 8365438, 14317693, 6235668, 10352803, 62882503 ####[facility] [address] [place] [address] MCH (RBC) [Entitic mass] 29.6 pg Normal 27.0-34.0 FT HemeAutoSS Comment on above: Performed By: #### 2 318579, 5373539, 97531259, 9991805, 83630954, 13796541 ####[address] [address] MCHC (RBC) [Mass/Vol] 33.8 g/dL Normal 31.4-36.0 [facility] C HemeAutoSS Comment on above: Performed By: #### 2 375029, 7490829, 16533610, 4139209, 28205023, 88152064 ####[address] [address] MCV (RBC) [Entitic vol] 87.6 fL Normal 80.0-100.0 FT HemeAutoSS Comment on above: Performed By: #### 2 830638, 8450490, 35841610, 4703902, 07782636, 16969518 ####[address] [address] Platelet mean volume (Bld) [Entitic vol] 10.5 fL Normal 6.4-10.8 FT HemeAutoSS Comment on above: Performed By: #### 2 903983, 4190832, 93816480, 5536179, 62775518, 41078960 ####[address] [address] Platelets (Bld) [#/Vol] 172.0 E9/L Normal 150.0-500.0 FT HemeAutoSS Comment on above: Performed By: #### 2 136703, 0789293, 27221431, 0186547, 14510838, 42801894 ####[address] [address] RBC (Bld) [#/Vol] 4.6 E12/L Normal 4.3-5.9 FT HemeAutoSS Comment on above: Performed By: #### 2 106048, 2428834, 03863536, 4012458, 39493745, 58573412 ####[facility] [address] [place] [address] WBC corrected for nucl RBC Auto (Bld) [#/Vol] 8.4 E9/L Normal 4.0-11.0 [facility] HemeAutoSS Comment on above: Performed By: #### 2 527142, 8872529, 13734312, 3056923, 97049715, 43770881 ####[facility] [address] [place] [address] CHEMISTRYOrdered By: SYSTEM SYSTEM on 06-16-2023 Troponin I.cardiac [Mass/Vol] 5.50 pg/mL Low 10.10 - 27.10 pg/mL [facility] Remisol Troponin I.cardiac [Mass/Vol] 5.30 pg/mL Low 10.10 - 27.10 pg/mL [facility] Remisol Urea nitrogen/Creatinine [Mass ratio] 20 mg/mg Normal 10 - 20 [facility] Remisol COAGULATIONOrdered By: David Chdawick on 06-16-2023 aPTT Coag (PPP) [Time] 31.8 [...] 370 Contrast amount in ml's: 89 Normal [facility] Consent for Treatmenton 05-31 Consent for Treatment [id number]#1 .00CD:127 Normal [facility] D-Dimeron 06-16-2023 Fibrin D-dimer FEU (PPP) [Mass/Vol] 532 [id number] Abnormal 215-500 [facility] Comment on above: Result Comment: Resu [...] infections Liver cirrhosis Performed By: #### 2 982538 ####[facility] [address] [place] [id number] ED Clinical Summaryon 2022 ED Clinical Summary [address] [address] ED Clinical Summary Person Information Name: ALIYA MOORE [facility]ary/[facility] Age: 57 Years : 1965 Sex: Female Language: Maldivian PCP: BREA JJ CNP Marital Status: Visit Id: Visit Reason: Chest pain; MID STERNUM PAIN Speciality: Acuity: 2 Enc Type: Emergency Med Service: Emergency Arrival: 06/16/2023 15:45:03 Discharge: LOS: 000 06:14 Checkin: 06/16/2023 15:45:03 Checkout: 06/16/2023 21:59:01 Dispo Type: Admitted as IP to this [facility] EVENTS: Event Name Event Status Request [...] 06/16/2023 21:04:33 Admit Request 06/16/2023 21:04:33 ADDRESS: [address] [place] [address] [place] [phone] PHYS DOC NOTES: MEDICAL INFORMATION: Prescriptions Given: PATIENT EDUCATION INFORMATION: Instructions: Follow up: DIAGNOSIS: 1:Chest pain; 2:Acute pulmonary embolism; 3:Sinus tachycardia; 4:COPD without exacerbation; 5:Hypertension; 6:Diabetes mellitus; 7:Depression; 8:Chronic hypoxemic respiratory failure; 9:Obese; 10:Smoker; 11:On deep vein thrombosis (DVT) prophylaxis [facility] ED Note-Nursingon 06-16-2023 ED Note-Nursing Per JUAN Reeves, patient okay to take at home Xanax medications. Pt took 1/2 of a .25mg tab. Normal [facility] ED Note-Physicianon 06-16-20 ED Note-Physician Basic [...] and Complexity of Problems Differential Diagnosis: [] [facility] Data External documents reviewed: [] My [...] deep vein thrombosis (DVT) prophylaxis (Z79.899: Other correction (current) drug therapy) 4. COPD without exacerbation [...] Tab, 162 (more content not included)... Normal [facility] Comment on above: Result Comment: Elec tronically Signed By: Leandro Jo PA-C\.br\Date and Time Signed: 06/16/23 18:46 EDT\.br\Electronically Co-Signed By: Ramses Hair DO\.br\Date and Time Co-Signed: 06/16/23 19:30 EDT ED Patient Education Noteon 06-16-2023 ED Patient Education Note Normal [facility] ED Patient Summaryon 023 ED Patient Summary [place] [address] Patient Discharge Instructions Person Information Name: ALIYA MOORE Age: 57 Years Arrival Date: 06/16/2023 15:45:03 Discharge Diagnosis: 1:Chest pain; 2:Acute pulmonary embolism; 3:Sinus tachycardia; 4:COPD without exacerbation; 5:Hypertension; 6:Diabetes mellitus; 7:Depression; 8:Chronic hypoxemic respiratory failure; 9:Obese; 10:Smoker; 11:On deep vein thrombosis (DVT) prophylaxis Primary Care Physician: BREA JJ CNP Provider Information Primary Provider: Ramses Hair DO Advanced Equestrian Trainer:Leandro oJ PA-C The exam and treatment you received in the Emergency Department were for an urgent problem and are not intended as complete care. It is important that you follow up with a doctor, nurse practitioner, or physician?s assistant site manager for ongoing care. If your symptoms become [...] opioids can be used to help relieve gidqijpk-ho-umoktm pain and are often prescribed following a [...] be struggling with addiction, tell your health day care home provider and ask for guid (more content not included)... Normal [facility] Monitor Recordon 06-16-2023 Monitor Record [id number]# 1.00CD:127 Normal [facility] PT & PTTon 06-16-2023 aPTT Coag (PPP) [Time] 31.8 second(s) Normal 25.1-36.5 [facility] Comment on above: Result Comment: Para [...] the same coagulation reagent and instrumentation as [facility]. Currently there are no coagulation studies available worldwide for children to 14 days, and no normal ranges. Heparin therapeutic range (represented by Anti-Factor Xa activity of 0.2 - 0.4 U/mL) corresponds to PTT of 56.6 - 109.0 sec. Performed By: #### 2 135062, 0796413, 12889764, 8366706, 09002771, 60499886 ####[facility] [address] [place] [address] PT Coag (PPP) [Time] 11.4 second(s) Normal 9.4-12.5 [facility] Comment on above: Result Comment: 15 [...] the same coagulation reagent and instrumentation as [facility]. Currently there are no coagulation studies available worldwide for children to 14 days, and no normal ranges. Performed By: #### 2 491372, 6603735, 67883481, 1690867, 91990507, 54946790 ####[facility] [address] [place] [address] PT & PTTOrdered By: David sher on 06-16-2023 INR Coag (PPP) [Relative time] 1.0 {INR} Invalid Interpretation Code [facility] Auto Coag Comment on above: Result Comment: INR results are specifically intended to assess patients stabilized on long-term Anticoagulation therapy suggested INR?s ?Less Intensive Anticoagulation? 2.0 ? 3.0 Conventional Range 3.0 ? 4.5 Performed By: #### 2 959783, 4210434, 20361700, 7287363, 63769827, 88275224 ####[facility] [address] [place] [address] Troponin 0 Hr.on 06-16-2023 Troponin I.cardiac [Mass/Vol] 4.60 pg/mL Low 10.10-27.10 [facility] Comment on above: Result Comment: The 95% CI (Confidence Interval) PPV (Positive Predictive Value) for myocardial infarction in females is 38 pg/mL, in males 51 pg/mL. The results should be used in conjunction with clinical conditions of myocardial infarction. (Access High Sensitivity Troponin I Instructions For Use, [employer], May 2018) Performed By: #### 2 000277, 3493779, 89897480, 8429309, 87269423, 54135309 ####[facility] [address] [place] [address] Troponin 3 Hr.on 06-16-2023 Troponin I.cardiac [Mass/Vol] 5.30 pg/mL Low 10.10-27.10 [facility] Comment on above: Result Comment: The 95% CI (Confidence Interval) PPV (Positive Predictive Value) for myocardial infarction in females is 38 pg/mL, in males 51 pg/mL. The results should be used in conjunction with clinical conditions of myocardial infarction. (Access High Sensitivity Troponin I Instructions For Use, [employer], May 2018) Performed By: #### 1 [id number] ####[facility] [address] [place] [address] eGFROrdered By: SYSTEM [employer] on 06-16-2023 GFR/1.73 sq M.predicted among non-blacks MDRD (S/P/Bld) [Vol rate/Area] 85 mL/min/1.73 m2 Normal >=59 [facility] Chem S Comment on above: Order Comment: Order added by Discern Expert. Result Comment: Fiber Optics Supervisor nita kidney disease could be indicated at eGFR's of less than 60 mL/min/1.73m2. Kidney failure is indicated at less than 15 mL/min/1.73m2. Performed By: #### 2 414065, 1341375, 59829589, 7856517, 63467975, 07623942 ####[facility] [address] [place] [address] 36on 06-09-2023 36 Patient will need a follow up appointment for further refills Normal [facility] BNPon 02-23-2023 Natriuretic peptide B (Bld) [Mass/Vol] 114.0 pg/mL Normal <=900.0 [facility] Comment on above: Performed By: #### C MP, BNP, HSTROPN #### [facility] [address] [place] [address] Dr. Xiomy Lennon CBC AUTO DIFFon 02-23-2023 BASO # 0.0 103/ul Normal 0.0-0.1 [facility] Comment on above: Performed By: #### P T, PTT #### [facility] [address] [place] [address] Dr. Xiomy Lennon Basophils/100 WBC (Bld) 0.2 % Normal 0.2-2.0 [facility] Comment on above: Performed By: #### P T, PTT #### [facility] [address] [place] [address] Dr. Xiomy Lennon EO # 0.2 103/ul Normal 0.0-0.7 [facility] Comment on above: Performed By: #### P T, PTT #### [facility] [address] [place] [address] Dr. Xiomy Lennon Eosinophils/100 WBC (Bld) 1.8 % Normal 0.9-7.0 [facility] Comment on above: Performed By: #### P T, PTT #### [facility] [address] [place] [address] Dr. Xiomy Lennon Erythrocyte distribution width (RBC) [Ratio] 15.4 % Critically high 11.0-15.0 [facility] Comment on above: Performed By: #### P T, PTT #### [facility] [address] [place] [address] Dr. Xiomy Lennon Hematocrit (Bld) [Volume fraction] 37.6 % Normal 36.0-48.0 [facility] Comment on above: Performed By: #### P T, PTT #### [facility] [address] [place] [address] Dr. Xiomy Lennon Hemoglobin (Bld) [Mass/Vol] 12.2 g/dL Normal 12.0-16.0 [facility] Comment on above: Performed By: #### P T, PTT #### [facility] [address] [place] [address] Dr. Xiomy Lennon IG # 0.02 10e3/ul Normal 0.00-0.03 [facility] Comment on above: Performed By: #### P T, PTT #### [facility] [address] [place] [address] Dr. Xiomy Lennon IG % 0.2 % Normal 0.0-0.5 [facility] Comment on above: Performed By: #### P T, PTT #### [facility] [address] [place] [address] Dr. Xiomy Lennon LYMPH # 1.7 103/ul Normal 1.2-3.8 [facility] Comment on above: Performed By: #### P T, PTT #### [facility] [address] [place] [address] Dr. Xiomy Lennon Lymphocytes/100 WBC (Bld) 17.0 % Critically low 20.5-60.0 [facility] Comment on above: Performed By: #### P T, PTT #### [facility] [address] [place] [address] Dr. Xiomy Lennon MANUAL DIFF REQ NO Normal [facility] Comment on above: Performed By: #### P T, PTT #### [facility] [address] [place] [address] Dr. Xiomy Lennon MCH (RBC) [Entitic mass] 28.6 pg Normal 26.7-34.0 [facility] Comment on above: Performed By: #### P T, PTT #### [facility] [address] [place] [address] Dr. Xiomy Lennon MCHC (RBC) [Mass/Vol] 32.4 g/dL Normal 29.9-35.2 [facility] Comment on above: Performed By: #### P T, PTT #### [facility] [address] [place] [address] Dr. Xiomy Lennon MCV (RBC) [Entitic vol] 88.3 fL Normal 81.0-99.0 [facility] Comment on above: Performed By: #### P T, PTT #### [facility] [address] [place] [address] Dr. Xiomy Lennon MONO # 0.7 103/ul Normal 0.3-0.8 [facility] Comment on above: Performed By: #### P T, PTT #### [facility] [address] [place] [address] Dr. Xiomy Lennon Monocytes/100 WBC (Bld) 7.3 % Normal 1.7-12.0 [facility] Comment on above: Performed By: #### P T, PTT #### [facility] [address] [place] [address] Dr. Xiomy Lennon NEUT # 7.2 103/ul Critically high 1.4-6.[address] [facility] Comment on above: Performed By: #### P T, PTT #### [facility] [address] [place] [address] Dr. Xiomy Lennon Neutrophils/100 WBC (Bld) 73.5 % Normal 43.0-75.0 [facility] Comment on above: Performed By: #### P T, PTT #### [facility] [address] [place] [address] Dr. Xiomy Lennon Platelet mean volume (Bld) [Entitic vol] 11.5 fL Normal 9.5-13.5 [facility] Comment on above: Performed By: #### P T, PTT #### [facility] [address] [place] [address] Dr. Xiomy Lennon PLT 197 103/ul Normal 150-450 [facility] Comment on above: Performed By: #### P T, PTT #### [facility] [address] [place] [address] Dr. Xiomy Lennon RBC 4.26 106/ul Normal 4.20-5.40 [facility] Comment on above: Performed By: #### P T, PTT #### [facility] [address] [place] [address] Dr. Xiomy Lennon WBC 9.7 103/ul Normal 4.0-11.0 [facility] Comment on above: Performed By: #### P T, PTT #### [facility] [address] [place] [address] Dr. Xiomy Lennon LACTATE/LACTIC ACIDon 2022 Lactate [Moles/Vol] 0.7 mmol/L Normal 0.4-2.0 [facility] Comment on above: Performed By: #### P T, PTT #### [facility] [address] [place] [address] Dr. Xiomy Lennon PROF 14(COMP METB)on 023 Albumin [Mass/Vol] 3.3 g/dL Critically low 3.4-5.0 [facility] Comment on above: Performed By: #### C MP, BNP, HSTROPN #### [facility] [address] [place] [address] Dr. Xiomy Lennon Albumin/Globulin [Mass ratio] 0.7 {ratio} Normal [facility] Comment on above: Performed By: #### C MP, BNP, HSTROPN #### [facility] [address] [place] [address] Dr. Xiomy Lennon ALP [Catalytic activity/Vol] 89 U/L Normal 46-116 [facility] Comment on above: Performed By: #### C MP, BNP, HSTROPN #### [facility] [address] [place] [address] Dr. Xiomy Lennon ALT [Catalytic activity/Vol] 34 U/L Normal 14-59 [facility] Comment on above: Performed By: #### C MP, BNP, HSTROPN #### [facility] [address] [place] [address] Dr. Xiomy Lennon Anion gap [Moles/Vol] 10.5 mmol/L Normal [facility] Comment on above: Performed By: #### C MP, BNP, HSTROPN #### [facility] [address] [place] [address] Dr. Xiomy Lennon AST [Catalytic activity/Vol] 22 U/L Normal 15-37 [facility] Comment on above: Performed By: #### C MP, BNP, HSTROPN #### [facility] [address] [place] [address] Dr. Xiomy Lennon Bilirubin [Mass/Vol] 0.3 mg/dL Normal 0.2-1.0 [facility] Comment on above: Performed By: #### C MP, BNP, HSTROPN #### [facility] [address] [place] [address] Dr. Xiomy Lennon Calcium [Mass/Vol] 9.4 mg/dL Normal 8.5-10.1 [facility] Comment on above: Performed By: #### C MP, BNP, HSTROPN #### [facility] [address] [place] [address] Dr. Xiomy Lennon Chloride [Moles/Vol] 99 mmol/L Normal 98-107 [facility] Comment on above: Performed By: #### C MP, BNP, HSTROPN #### [facility] [address] [place] [address] Dr. Xiomy Lennon CO2 [Moles/Vol] 31.6 mmol/L Normal 21.0-32.0 [facility] Comment on above: Performed By: #### C MP, BNP, HSTROPN #### [facility] [address] [place] [address] Dr. Xiomy Lennon Creatinine [Mass/Vol] 0.86 mg/dL Normal 0.55-1.02 [facility] Comment on above: Performed By: #### C MP, BNP, HSTROPN #### [facility] [address] [place] [address] Dr. Xiomy Lennon EGFR-AF FINNISH >60 Normal >=60 [facility] Comment on above: Performed By: #### C MP, BNP, HSTROPN #### [facility] [address] [place] [address] Dr. Xiomy Lennon EGFR-NON AF FINNISH >60 Normal >=60 [facility] Comment on above: Performed By: #### C MP, BNP, HSTROPN #### [facility] [address] [address] [address] Xiomy Lennon Globulin (S) [Mass/Vol] 4.6 g/dL Normal [facility] Comment on above: Performed By: #### C MP, BNP, HSTROPN #### [facility] [address] [place] [address] Dr. Xiomy Lennon Glucose [Mass/Vol] 133 mg/dL Critically high 74-106 [facility] Comment on above: Performed By: #### C MP, BNP, HSTROPN #### [facility] [address] [place] [address] Dr. Xiomy Lennon Potassium [Moles/Vol] 4.1 mmol/L Normal 3.5-5.1 [facility] Comment on above: Performed By: #### C MP, BNP, HSTROPN #### [facility] [address] [place] [address] Dr. Xiomy Lennon Protein [Mass/Vol] 7.9 g/dL Normal 6.4-8.2 [facility] Comment on above: Performed By: #### C MP, BNP, HSTROPN #### [facility] [address] [place] [address] Dr. Xiomy Lennon Sodium [Moles/Vol] 137 mmol/L Normal 136-145 [facility] Comment on above: Performed By: #### C MP, BNP, HSTROPN #### [facility] [address] [place] [address] Dr. Xiomy Lennon Urea nitrogen [Mass/Vol] 16.0 mg/dL Normal 7.0-18.0 [facility] Comment on above: Performed By: #### C MP, BNP, HSTROPN #### [facility] [address] [place] [address] Dr. Xiomy Lennon Urea nitrogen/Creatinine [Mass ratio] 18.6 mg/mg Normal [facility] Comment on above: Performed By: #### C MP, BNP, HSTROPN #### [facility] [address] [place] [address] Dr. Xiomy Lennon PROTIMEon 02-23-2023 INR Coag (PPP) [Relative time] 0.95 {INR} Normal [facility] Comment on above: Performed By: #### P TT, PT #### [facility] [address] [place] [address] Dr. Xiomy Lennon INR GUIDELINES SEE BELOW Normal [facility] Comment on above: Result Comment: NIALL RED INR: 2.0 - 3.0 CONDITIONS NOT LISTED BELOW 2.5 - 3.5 FOR PROSTHETIC HEART VALVE REPLACEMENT 2.5 - 3.5 RECURRENT THROMBOSIS Performed By: #### P TT, PT #### [facility] [address] [place] [address] Dr. Xiomy Lennon PT Coag (PPP) [Time] 10.1 s Normal 9.0-11.6 [facility] Comment on above: Performed By: #### P TT, PT #### [facility] [address] [place] [address] Dr. Xiomy Lennon PTTon 02-23-2023 aPTT Coag (Bld) [Time] 27.2 s Normal 22.3-36.2 [facility] Comment on above: Performed By: #### P TT, PT #### [facility] [address] [place] [address] Dr. Xiomy Lennon TROPONIN, HIGH SENSITIVITYon 02-23-2023 HSTROP 6.2 pg/mL Normal 4.0-51.3 [facility] Comment on above: Result Comment: CUT- OFF POINTS HAVE BEEN ESTABLISHED BASED ON THE FOURTH UNIVERSAL DEFINITIONS OF MYOCARDIAL INFARCTION. THE UPPER REFERENCE LIMIT (URL) OF TROPONIN, DEFINED THE 99TH PERCENTILE OF cTnI DISTRIBUTION IN A REFERENCE POPULATION, HAS BEEN CONFIRMED THE DECISION THRESHOLD FOR TN DIAGNOSIS. Performed By: #### C MP, BNP, HSTROPN #### [facility] [address] [place] [address] Dr. Xiomy Lennon XR CHEST 1 Von [...] by: JUSTINE MARES Date: 2023-02-23 19:05 Normal [facility] HEMOGLOBINon 02-01-2023 Hemoglobin (Bld) [Mass/Vol] 13.0 g/dL Normal 12.0-16.0 [facility] Comment on above: Performed By: #### H GB #### [facility] [address] [address] [address] Xiomy Lennon PULMONARY FUNCTION TESTon PULMONARY [...] ambulation/activity. 3. Clinical correlation required. Normal [facility] CT LUNG CANCER SCREENINGon 0 01-12-2023 [...] by: MIGUEL MEDEROS Date: 2023-01-12 14:10 Normal [facility] GLYCOHEMOGLOBIN A1Con 2022 ADA RECOMMENDATION SEE BELOW Normal [facility] Comment on above: Result Comment: ADA RECOMMENDED LIMIT 4.0 - 6.0 ADA THERAPEUTIC TARGET < 7.0 ACTION SUGGESTED > 7.0 Performed By: #### A 1C #### [facility] [address] [address] [address] Xiomy Lennon Glucose [Mass/Vol] 111 mg/dL Normal [facility] Comment on above: Performed By: #### A 1C #### [facility] [address] [address] [address] Xiomy Lennon HbA1c (Bld) [Mass fraction] 5.5 % Normal 4.5-6.2 [facility] Comment on above: Performed By: #### A 1C #### [facility] [address] [address] [address] Xiomy Lennon PROF CHEM 8 (BAS METB)on Anion gap [Moles/Vol] 12.0 mmol/L Normal [facility] Comment on above: Performed By: #### P T, PTT #### [facility] [address] [address] [address] Xiomy Lennon Calcium [Mass/Vol] 10.0 mg/dL Normal 8.5-10.1 [facility] Comment on above: Performed By: #### P T, PTT #### [facility] [address] [address] [address] Xiomy Lennon Chloride [Moles/Vol] 102 mmol/L Normal 98-107 [facility] Comment on above: Performed By: #### P T, PTT #### [facility] [address] [address] [address] Xiomy Lennon CO2 [Moles/Vol] 30.4 mmol/L Normal 21.0-32.0 [facility] Comment on above: Performed By: #### P T, PTT #### [facility] [address] [place] [address] Dr. Xiomy Lennon Creatinine [Mass/Vol] 0.79 mg/dL Normal 0.55-1.02 [facility] Comment on above: Performed By: #### P T, PTT #### [facility] [address] [address] [address] Xiomy Lennon EGFR-AF FINNISH >60 Normal >=60 [facility] Comment on above: Performed By: #### P T, PTT #### [facility] [address] [place] [address] Dr. Xiomy Lennon EGFR-NON AF FINNISH >60 Normal >=60 [facility] Comment on above: Performed By: #### P T, PTT #### [facility] [address] [place] [address] Dr. Xiomy Lennon Glucose [Mass/Vol] 147 mg/dL Critically high 74-106 [facility] Comment on above: Performed By: #### P T, PTT #### [facility] [address] [address] [address] Xiomy Lennon Potassium [Moles/Vol] 4.4 mmol/L Normal 3.5-5.1 [facility] Comment on above: Performed By: #### P T, PTT #### [facility] [address] [address] [address] Xiomy Lennon Sodium [Moles/Vol] 140 mmol/L Normal 136-145 [facility] Comment on above: Performed By: #### P T, PTT #### [facility] [address] [address] [address] Xiomy Lennon Urea nitrogen [Mass/Vol] 18.0 mg/dL Normal 7.0-18.0 [facility] Comment on above: Performed By: #### P T, PTT #### [facility] [address] [address] [address] Xiomy Lennon Urea nitrogen/Creatinine [Mass ratio] 22.8 mg/mg Normal [facility] Comment on above: Performed By: #### P T, PTT #### [facility] [address] [address] [address] Xiomy Lennon Office Visiton 12-24-2022 Follow-up visit [id number] Aliya Moore 1965 F Date Provider Department Center 12/24/2022 [facility] Family History Problem Relation Age of Onset Coronary artery disease Other Pulmonary embolism Other Deep vein thrombosis Other Family Status - Relation Status Age at Other Level of Service:14355 LA OFFICE/OUTPATIENT ESTABLISHED MOD MDM 30-39 MIN Reason for Visit and Comments: Hypertension [731327] Shortness of Breath [369184] Normal [facility] THEOPHYLLINEon 11-04-2022 THEOPHYLLINE 2.1 ug/mL Critically low 10.0-20.0 [facility] Comment on above: Performed By: #### T HERBERT #### [facility] [address] [place] [address] Dr. Xiomy Lennon GLYCOHEMOGLOBIN A1Con 2021 ADA RECOMMENDATION SEE BELOW Normal [facility] Comment on above: Result Comment: ADA RECOMMENDED LIMIT 4.0 - 6.0 ADA THERAPEUTIC TARGET < 7.0 ACTION SUGGESTED > 7.0 Performed By: #### P T, PTT #### [facility] [address] [address] [address] Xiomy Lennon Glucose [Mass/Vol] 120 mg/dL Normal [facility] Comment on above: Performed By: #### P T, PTT #### [facility] [address] [address] [address] Xiomy Lennon HbA1c (Bld) [Mass fraction] 5.8 % Normal 4.5-6.2 [facility] Comment on above: Performed By: #### P T, PTT #### [facility] [address] [address] [address] Xiomy Lennon LIPID PROFILEon 07-28-2022 CHOL-HDL RATIO NORM SEE BELOW Normal [facility] Comment on above: Result Comment: 3.3 - 4.4 LOW RISK 4.4 - 7.1 AVERAGE RISK 7.1 - 11.0 MODERATE RISK >11.0 HIGH RISK Performed By: #### P T, PTT #### [facility] [address] [address] [address] Xiomy Lennon Cholesterol [Mass/Vol] 135 mg/dL Normal <=200 [facility] Comment on above: Performed By: #### P T, PTT #### [facility] [address] [address] [address] Xiomy Lennon Cholesterol in HDL [Mass/Vol] 77 mg/dL Critically high 40-60 [facility] Comment on above: Performed By: #### P T, PTT #### [facility] [address] [address] [address] Xiomy Lennon Cholesterol in LDL [Mass/Vol] 44.6 mg/dL Normal [facility] Comment on above: Performed By: #### P T, PTT #### [facility] [address] [address] [address] Xiomy eLnnon Cholesterol.total/Chol esterol in HDL [Mass ratio] 1.8 {ratio} Normal [facility] Comment on above: Performed By: #### P T, PTT #### [facility] [address] [address] [address] Xiomy Lennon HDL NORMAL > or = 60 mg/dl - LO W CARDIOVASCULAR RISK <40 mg/dl - HIGH CARDIOVASCULAR RISK Normal [facility] Comment on above: Performed By: #### P T, PTT #### [facility] [address] [address] [address] Xiomy Lennon LDL CALC NORMAL SEE BELOW Normal [facility] Comment on above: Result Comment: <100 mg/dl OPTIMAL 100 - 129 mg/dl NEAR OR ABOVE OPTIMAL 130 - 159 mg/dl BORDERLINE HIGH 160 - 189 mg/dl HIGH >190 mg/dl VERY HIGH Performed By: #### P T, PTT #### [facility] [address] [address] [address] Xiomy Lennon Triglyceride [Mass/Vol] 67 mg/dL Normal <=150 [facility] Comment on above: Performed By: #### P T, PTT #### [facility] [address] [address] [address] Xiomy Lennon VLDL CALC 13.4 mg/dL Normal [facility] Comment on above: Performed By: #### P T, PTT #### [facility] [address] [place] [address] Dr. Xiomy Lennon PROF CHEM 8 (BAS METB)on Anion gap [Moles/Vol] 8.9 mmol/L Normal [facility] Comment on above: Performed By: #### P T, PTT #### [facility] [address] [address] [address] Xiomy Lennon Calcium [Mass/Vol] 9.7 mg/dL Normal 8.5-10.1 [facility] Comment on above: Performed By: #### P T, PTT #### [facility] [address] [place] [address] Dr. Xiomy Lennon Chloride [Moles/Vol] 99 mmol/L Normal 98-107 [facility] Comment on above: Performed By: #### P T, PTT #### [facility] [address] [address] [address] Xiomy Lennon CO2 [Moles/Vol] 32.0 mmol/L Normal 21.0-32.0 [facility] Comment on above: Performed By: #### P T, PTT #### [facility] [address] [address] [address] Xiomy Lennon Creatinine [Mass/Vol] 0.78 mg/dL Normal 0.55-1.02 [facility] Comment on above: Performed By: #### P T, PTT #### [facility] [address] [address] [address] Xiomy Lennon EGFR-AF FINNISH >60 Normal >=60 [facility] Comment on above: Performed By: #### P T, PTT #### [facility] [address] [address] [address] Xiomy Lennon EGFR-NON AF FINNISH >60 Normal >=60 [facility] Comment on above: Performed By: #### P T, PTT #### [facility] [address] [address] [address] Xiomy Lennon Glucose [Mass/Vol] 111 mg/dL Critically high 74-106 [facility] Comment on above: Performed By: #### P T, PTT #### [facility] [address] [place] [address] Dr. Xiomy Lennon Potassium [Moles/Vol] 3.9 mmol/L Normal 3.5-5.1 [facility] Comment on above: Performed By: #### P T, PTT #### [facility] [address] [address] [address] Xiomy Lennon Sodium [Moles/Vol] 136 mmol/L Normal 136-145 [facility] Comment on above: Performed By: #### P T, PTT #### [facility] [address] [address] [address] Xiomy Lennon Urea nitrogen [Mass/Vol] 10.0 mg/dL Normal 7.0-18.0 [facility] Comment on above: Performed By: #### P T, PTT #### [facility] [address] [address] [address] Xiomy Lennon Urea nitrogen/Creatinine [Mass ratio] 12.8 mg/mg Normal [facility] Comment on above: Performed By: #### P T, PTT #### [facility] [address] [place] [address] Dr. Xiomy Lennon MG MAMM SCREEN 3D EMY CADon 04-30-2022 MG MAMM SCREEN 3D EMY CAD Patient: ALIYA MOORELakia Exam Date: 04/30/2022 : 1965 Gender:F Ordering : ENRIQUE JJ [employer] Admission #: [id number] Family : Order #: [id number] CLICK HERE TO VIEW EXAM RADIOLOGY REPORT [...] Treatments None Family Cancers None LOCATION: [facility] BREAST COMPOSITION: Almost entirely fatty. FINDINGS: [...] MD on 04/30/2022 at 10:06 Normal [facility] CBC AUTO DIFFon 03-26-2022 BASO # 0.0 103/ul Normal 0.0-0.1 [facility] Comment on above: Performed By: #### P T, PTT #### [facility] [address] [place] [address] Dr. Xiomy Lennon Basophils/100 WBC (Bld) 0.2 % Normal 0.2-2.0 [facility] Comment on above: Performed By: #### P T, PTT #### [facility] [address] [address] [address] Xiomy Lennon EO # 0.2 103/ul Normal 0.0-0.7 [facility] Comment on above: Performed By: #### P T, PTT #### [facility] [address] [place] [address] Dr. Xiomy Lennon Eosinophils/100 WBC (Bld) 1.7 % Normal 0.9-7.0 [facility] Comment on above: Performed By: #### P T, PTT #### [facility] [address] [place] [address] Dr. Xiomy Lennon Erythrocyte distribution width (RBC) [Ratio] 15.6 % Critically high 11.0-15.0 [facility] Comment on above: Performed By: #### P T, PTT #### [facility] [address] [place] [address] Dr. Xiomy Lennon Hematocrit (Bld) [Volume fraction] 43.4 % Normal 36.0-48.0 [facility] Comment on above: Performed By: #### P T, PTT #### [facility] [address] [place] [address] Dr. Xiomy Lennon Hemoglobin (Bld) [Mass/Vol] 14.0 g/dL Normal 12.0-16.0 [facility] Comment on above: Performed By: #### P T, PTT #### [facility] [address] [place] [address] Dr. Xiomy Lennon IG # 0.04 10e3/ul Critically high 0.00-0.03 [facility] Comment on above: Performed By: #### P T, PTT #### [facility] [address] [place] [address] Dr. Xiomy Lennon IG % 0.4 % Normal 0.0-0.5 [facility] Comment on above: Performed By: #### P T, PTT #### [facility] [address] [place] [address] Dr. Xiomy Lennon LYMPH # 1.2 103/ul Normal 1.2-3.8 [facility] Comment on above: Performed By: #### P T, PTT #### [facility] [address] [place] [address] Dr. Xiomy Lennon Lymphocytes/100 WBC (Bld) 11.4 % Critically low 20.5-60.0 [facility] Comment on above: Performed By: #### P T, PTT #### [facility] [address] [place] [address] Dr. Xiomy Lennon MANUAL DIFF REQ NO Normal [facility] Comment on above: Performed By: #### P T, PTT #### [facility] [address] [place] [address] Dr. Xiomy Lennon MCH (RBC) [Entitic mass] 29.7 pg Normal 26.7-34.0 [facility] Comment on above: Performed By: #### P T, PTT #### [facility] [address] [place] [address] Dr. Xiomy Lennon MCHC (RBC) [Mass/Vol] 32.3 g/dL Normal 29.9-35.2 [facility] Comment on above: Performed By: #### P T, PTT #### [facility] [address] [place] [address] Dr. Xiomy Lennon MCV (RBC) [Entitic vol] 92.1 fL Normal 81.0-99.0 [facility] Comment on above: Performed By: #### P T, PTT #### [facility] [address] [place] [address] Dr. Xiomy Lennon MONO # 0.8 103/ul Normal 0.3-0.8 [facility] Comment on above: Performed By: #### P T, PTT #### [facility] [address] [place] [address] Dr. Xiomy Lennon Monocytes/100 WBC (Bld) 7.9 % Normal 1.7-12.0 [facility] Comment on above: Performed By: #### P T, PTT #### [facility] [address] [place] [address] Dr. Xiomy Lennon NEUT # 8.3 103/ul Critically high 1.4-6.5 [facility] Comment on above: Performed By: #### P T, PTT #### [facility] [address] [place] [address] Dr. Xiomy Lennon Neutrophils/100 WBC (Bld) 78.4 % Critically high 43.0-75.0 [facility] Comment on above: Performed By: #### P T, PTT #### [facility] [address] [place] [address] Dr. Xiomy Lennon Platelet mean volume (Bld) [Entitic vol] 11.0 fL Normal 9.5-13.5 [facility] Comment on above: Performed By: #### P T, PTT #### [facility] [address] [place] [address] Dr. Xiomy Lennon PLT 196 103/ul Normal 150-450 [facility] Comment on above: Performed By: #### P T, PTT #### [facility] [address] [place] [address] Dr. Xiomy Lennon RBC 4.71 106/ul Normal 4.20-5.40 [facility] Comment on above: Performed By: #### P T, PTT #### [facility] [address] [place] [address] Dr. Xiomy Lennon WBC 10.6 103/ul Normal 4.0-11.0 [facility] Comment on above: Performed By: #### P T, PTT #### [facility] [address] [place] [address] Dr. Xiomy Lennon LIPASEon 03-26-2022 Lipase [Catalytic activity/Vol] 92.0 U/L Normal 73.0-393.0 [facility] Comment on above: Performed By: #### P T, PTT #### [facility] [address] [place] [address] Dr. Xiomy Lennon PROF 14(COMP METB)on 022 Albumin [Mass/Vol] 3.6 g/dL Normal 3.4-5.0 [facility] Comment on above: Performed By: #### P T, PTT #### [facility] [address] [place] [address] Dr. Xiomy Lennon Albumin/Globulin [Mass ratio] 0.7 {ratio} Normal [facility] Comment on above: Performed By: #### P T, PTT #### [facility] [address] [place] [address] Dr. Xiomy Lennon ALP [Catalytic activity/Vol] 78 U/L Normal 46-116 [facility] Comment on above: Performed By: #### P T, PTT #### [facility] [address] [place] [address] Dr. Xiomy Lennon ALT [Catalytic activity/Vol] 25 U/L Normal 14-59 [facility] Comment on above: Performed By: #### P T, PTT #### [facility] [address] [place] [address] Dr. Xiomy Lennon Anion gap [Moles/Vol] 9.4 mmol/L Normal [facility] Comment on above: Performed By: #### P T, PTT #### [facility] [address] [address] [address] Xiomy Lennon AST [Catalytic activity/Vol] 19 U/L Normal 15-37 [facility] Comment on above: Performed By: #### P T, PTT #### [facility] [address] [place] [address] Dr. Xiomy Lennon Bilirubin [Mass/Vol] 0.3 mg/dL Normal 0.2-1.0 [facility] Comment on above: Performed By: #### P T, PTT #### [facility] [address] [place] [address] Dr. Xiomy Lennon Calcium [Mass/Vol] 9.9 mg/dL Normal 8.5-10.1 [facility] Comment on above: Performed By: #### P T, PTT #### [facility] [address] [place] [address] Dr. Xiomy Lennon Chloride [Moles/Vol] 96 mmol/L Critically low 98-107 [facility] Comment on above: Performed By: #### P T, PTT #### [facility] [address] [place] [address] Dr. Xiomy Lennon CO2 [Moles/Vol] 34.6 mmol/L Critically high 21.0-32.0 [facility] Comment on above: Performed By: #### P T, PTT #### [facility] [address] [place] [address] Dr. Xiomy Lennon Creatinine [Mass/Vol] 0.93 mg/dL Normal 0.55-1.02 [facility] Comment on above: Performed By: #### P T, PTT #### [facility] [address] [address] [address] Xiomy Lennon EGFR-AF FINNISH >60 Normal >=60 [facility] Comment on above: Performed By: #### P T, PTT #### [facility] [address] [address] [address] Xiomy Lennon EGFR-NON AF FINNISH >60 Normal >=60 [facility] Comment on above: Performed By: #### P T, PTT #### [facility] [address] [address] [address] Xiomy Lennon Globulin (S) [Mass/Vol] 5.0 g/dL Normal [facility] Comment on above: Performed By: #### P T, PTT #### [facility] [address] [address] [address] Xiomy Lennon Glucose [Mass/Vol] 139 mg/dL Critically high 74-106 [facility] Comment on above: Performed By: #### P T, PTT #### [facility] [address] [address] [address] Xiomy Lennon Potassium [Moles/Vol] 4.0 mmol/L Normal 3.5-5.1 [facility] Comment on above: Performed By: #### P T, PTT #### [facility] [address] [address] [address] Xiomy Lennon Protein [Mass/Vol] 8.6 g/dL Critically high 6.4-8.2 [facility] Comment on above: Performed By: #### P T, PTT #### [facility] [address] [address] [address] Xiomy Lennon Sodium [Moles/Vol] 136 mmol/L Normal 136-145 [facility] Comment on above: Performed By: #### P T, PTT #### [facility] [address] [address] [address] Xiomy Lennon Urea nitrogen [Mass/Vol] 19.0 mg/dL Critically high 7.0-18.0 [facility] Comment on above: Performed By: #### P T, PTT #### [facility] [address] [place] [address] Dr. Xiomy Lennon Urea nitrogen/Creatinine [Mass ratio] 20.4 mg/mg Normal [facility] Comment on above: Performed By: #### P T, PTT #### [facility] [address] [place] [address] Dr. Xiomy Lennon PROTIMEon 03-26-2022 INR Coag (PPP) [Relative time] 0.99 {INR} Normal [facility] Comment on above: Performed By: #### P T, PTT #### [facility] [address] [place] [address] Dr. Xiomy Lennon INR GUIDELINES SEE BELOW Normal [facility] Comment on above: Result Comment: NIALL RED INR: 2.0 - 3.0 CONDITIONS NOT LISTED BELOW 2.5 - 3.5 FOR PROSTHETIC HEART VALVE REPLACEMENT 2.5 - 3.5 RECURRENT THROMBOSIS Performed By: #### P T, PTT #### [facility] [address] [place] [address] Dr. Xiomy Lennon PT Coag (PPP) [Time] 10.7 s Normal 9.0-11.6 [facility] Comment on above: Performed By: #### P T, PTT #### [facility] [address] [place] [address] Dr. Xiomy Lennon PTTon 03-26-2022 aPTT Coag (Bld) [Time] 26.9 s Normal 22.3-36.2 Th [facility] Comment on above: Performed By: #### P T, PTT #### [facility] [address] [place] [address] Dr. Xiomy Lennon TROPONIN, HIGH SENSITIVITYon 03-26-2022 HSTROP 8.0 pg/mL Normal 4.0-51.3 [facility] Comment on above: Result Comment: CUT- OFF POINTS HAVE BEEN ESTABLISHED BASED ON THE FOURTH UNIVERSAL DEFINITIONS OF MYOCARDIAL INFARCTION. THE UPPER REFERENCE LIMIT (URL) OF TROPONIN, DEFINED THE 99TH PERCENTILE OF cTnI DISTRIBUTION IN A REFERENCE POPULATION, HAS BEEN CONFIRMED THE DECISION THRESHOLD FOR [place] DIAGNOSIS. Performed By: #### P T, PTT #### [facility] [address] [place] [address] Dr. Xiomy Lennon US SINGLE QUAD RT [...] by: KENDY HERRERA Date: 2022-03-26 19:58 Normal [facility] Basic Metabolic Panelon 07-01 Calcium [Mass/Vol] 9.3 mg/dL Normal 8.2-10.2 [facility] Comment on above: Performed By: #### C RIDDLETON 19 [facility], SOFIANEG #### [facility] [address] [id number] [place] Chloride [Moles/Vol] 89 mmol/L Low 95-114 [facility] Comment on above: Performed By: #### [address], COVID-19 VALDEMAR, SOFIANEG #### [facility] [address] [id number] [facility] CO2 [Moles/Vol] 35.4 mmol/L High 22.0-30.0 [facility] Comment on above: Performed By: #### C R[place] 19 [facility] VALDEMAR, SOFIANEG #### [facility] [address] [place] [address] [place] Creatinine [Mass/Vol] 0.81 mg/dL Normal 0.44-1.03 [facility] Comment on above: Performed By: #### C R[place] 19 [facility] COVID-19 VALDEMAR, SOFIANEG #### [facility] [address] [place] [address] [place] Creatinine Clr Calc Pharmacy 107.64 [facility] Comment on above: Performed By: #### C R[place] 19 [facility] COVID-19 VALDEMAR, SOFIANEG #### [facility] [address] [place] [address] [place] Estimated GFR ( Hilary > 60 Normal [facility] Comment on above: Result Comment: GFR estimated reference range: According to KDOQI guidelines, <60 ml/min/1.73m2 is sufficient to diagnose a patient with chronic kidney disease. Performed By: #### C OVID 19 [facility] COVID-[place] VALDEMAR, SOFIANEG #### [facility] [address] [id number] [place] Estimated GFR (Non- Am > 60 Normal [facility] Comment on above: Performed By: #### C OVID 19 [facility] COVID-19 VALDEMAR, SOFIANEG #### [facility] [address] Glucose [Mass/Vol] 94 mg/dL Normal 70-100 [facility] Comment on above: Result Comment: [place] Glucose Reference Range is dependent on time and content of last meal. Glucose of more than 200 mg/dL in a nonstressed, ambulatory subject supports the diagnosis of Diabetes Mellitus. ADA recommended reference range Performed By: #### C OVID 19 [facility] COVID-[place] VALDEMAR, SOFIANEG #### [facility] [address] Potassium Normal 3.5-5.1 [facility] Comment on above: Result Comment: Spec imen hemolyzed, redraw requested Performed By: #### C OVID 19 [facility] COVID-[place] VALDEMAR, SOFIANEG #### [facility] [address] [id number] [place] Sodium [Moles/Vol] 135 mmol/L Low 136-146 [facility] Comment on above: Performed By: #### C OVID 19 [facility] COVID-[place] VALDEMAR, SOFIANEG #### [facility] [address] [phone] [place] Urea nitrogen [Mass/Vol] 19 mg/dL Normal 9-23 [facility] Comment on above: Performed By: #### C OVID 19 [facility] COVID-[place] VALDEMAR, SOFIANEG #### [facility] [address] Complete Blood Count Auto Di ffon 07-14-2021 Basophils (Bld) [#/Vol] 0.0 10*3/uL Normal 0.0-0.2 [facility] Comment on above: Result Comment: PERF ORMED BY: [place] [address] PATHOLOGIST OYSTER SORTER OTILIA BAIRD M.D. Performed By: #### C BC, LACTIC, HS TROP, BMP #### [address] Basophils/100 WBC (Bld) 0.5 % Normal . [facility] Comment on above: Performed By: #### C BC, LACTIC, HS TROP, BMP #### [address] Eosinophils (Bld) [#/Vol] 0.1 10*3/uL Normal 0.0-0.45 [facility] Comment on above: Performed By: #### C BC, LACTIC, HS TROP, BMP #### [address] Eosinophils/100 WBC (Bld) 0.9 % Normal . [facility] Comment on above: Performed By: #### C BC, LACTIC, HS TROP, BMP #### [address] Erythrocyte distribution width (RBC) [Ratio] 18.2 % High 11.9-15.3 [facility] Comment on above: Performed By: #### C BC, LACTIC, HS TROP, BMP #### [facility] [address] [place] [address] Hematocrit (Bld) [Volume fraction] 41.6 % Normal 34.0-46.4 [facility] Comment on above: Performed By: #### C BC, LACTIC, HS TROP, BMP #### [facility] [address] [place] [address] Hemoglobin (Bld) [Mass/Vol] 13.8 g/dL Normal 11.8-15.4 [facility] Comment on above: Performed By: #### C BC, LACTIC, HS TROP, BMP #### [address] Lymphocytes (Bld) [#/Vol] 1.5 10*3/uL Normal 1.00-4.8 [facility] Comment on above: Performed By: #### C BC, LACTIC, HS TROP, BMP #### [address] Lymphocytes/100 WBC (Bld) 20.5 % Normal . [facility] Comment on above: Performed By: #### C BC, LACTIC, HS TROP, BMP #### [address] MCH (RBC) [Entitic mass] 29.0 pg Normal 24.7-34.3 [facility] Comment on above: Performed By: #### C BC, LACTIC, HS TROP, BMP #### [address] MCV (RBC) [Entitic vol] 87.8 fL Normal 80-100 [facility] Comment on above: Performed By: #### C BC, LACTIC, HS TROP, BMP #### [address] Mean Corpuscular HGB Conc 33.0 g/dL Normal 32.0-35.0 [facility] Comment on above: Performed By: #### C BC, LACTIC, HS TROP, BMP #### [address] Monocytes (Bld) [#/Vol] 0.8 10*3/uL Normal 0.0-0.8 [facility] Comment on above: Performed By: #### C BC, LACTIC, HS TROP, BMP #### [address] Monocytes/100 WBC (Bld) 11.4 % Normal . [facility] Comment on above: Performed By: #### C BC, LACTIC, HS TROP, BMP #### [address] [place] [address] [place] Neutrophils (Bld) [#/Vol] 4.8 10*3/uL Normal 1.8-7.7 [facility] Comment on above: Performed By: #### C BC, LACTIC, HS TROP, BMP #### [facility] [address] [place] [address] [place] Neutrophils/100 WBC (Bld) 66.7 % Normal . [facility] Comment on above: Performed By: #### C BC, LACTIC, HS TROP, BMP #### [facility] [address] [place] [address] [place] Nucleated RBC/100 WBC (Bld) [Ratio] 0.1 % Normal 0-0.5 [facility] Comment on above: Performed By: #### C BC, LACTIC, HS TROP, BMP #### [address] Platelet mean volume (Bld) [Entitic vol] 9.5 fL Normal 6.3-10.7 [facility] Comment on above: Performed By: #### C BC, LACTIC, HS TROP, BMP #### [place] [address] [place] Platelets (Bld) [#/Vol] 153 10*3/uL Normal 150-450 [facility] Comment on above: Performed By: #### C BC, LACTIC, HS TROP, BMP #### [place] [address] [place] RBC (Bld) [#/Vol] 4.74 10*6/uL Normal 3.60-5.00 [facility] Comment on above: Performed By: #### C BC, LACTIC, HS TROP, BMP #### [place] [address] [place] WBC (Bld) [#/Vol] 7.1 10*3/uL Normal 4.5-11.0 [facility] Comment on above: Performed By: #### C BC, LACTIC, HS TROP, BMP #### [place] [address] [place] Glucose Poct Glucometerson 0 07-14-2021 Commemt1 Glu2: Cleaned Meter [facility] Comment on above: Result Comment: PERF ORMED BY: [facility] [address] [place] [address] PATHOLOGIST OYSTER SORTER OTILIA BAIRD M.D. Performed By: #### C OVID 19 [facility] VALDEMAR, SOFIANEG #### [facility] [address] [phone] [place] Glucose [Mass/Vol] 130 mg/dL Normal [facility] Comment on above: Result Comment: [place] om Glucose Reference Range is dependent on time and content of last meal. Glucose of more than 200 mg/dL in a nonstressed, ambulatory subject supports the diagnosis of Diabetes Mellitus. Performed By: #### C OVID 19 [facility] COVID-[place] VALDEMAR, SOFIANEG #### [facility] [address] [place] [address] [place] Commemt1 Glu2: Cleaned Meter [facility] Comment on above: Result Comment: PERF ORMED BY: [facility] [address] [place] [address] PATHOLOGIST OYSTER SORTER OTILIA BAIRD M.D. Performed By: #### C BC, LACTIC, HS TROP, BMP #### [address] [address] [place] Glucose [Mass/Vol] 102 mg/dL Normal [facility] Comment on above: Result Comment: [place] om Glucose Reference Range is dependent on time and content of last meal. Glucose of more than 200 mg/dL in a nonstressed, ambulatory subject supports the diagnosis of Diabetes Mellitus. Performed By: #### C BC, LACTIC, HS TROP, BMP #### [facility] [address] [place] [address] [place] Commemt1 Glu2: Cleaned Meter [facility] Comment on above: Result Comment: PERF ORMED BY: [facility] [address] [place] [address] PATHOLOGIST OYSTER SORTER OTILIA BAIRD M.D. Performed By: #### C BC, LACTIC, HS TROP, BMP #### [facility] [address] Glucose [Mass/Vol] 130 mg/dL Normal [facility] Comment on above: Result Comment: [facility] Glucose Reference Range is dependent on time and content of last meal. Glucose of more than 200 mg/dL in a nonstressed, ambulatory subject supports the diagnosis of Diabetes Mellitus. Performed By: #### C BC, LACTIC, HS TROP, BMP #### [address] Magnesiumon 07-14-2021 Magnesium Normal 1.6-2.6 [facility] Comment on above: Result Comment: Spec imen hemolyzed, redraw requested PERFORMED BY: [place] [address] PATHOLOGIST OYSTER SORTER OTILIA BAIRD M.D. Performed By: #### C OVID 19 [facility] COVID-[place] VALDEMAR, SOFIANEG #### [address] Redraw Magnesiumon 1 Magnesium [Mass/Vol] 1.9 mg/dL Normal 1.6-2.6 [facility] Comment on above: Order Comment: Speci men hemolyzed, redraw requested Result Comment: PERF ORMED BY: [place] [address] PATHOLOGIST OYSTER SORTER OTILIA BAIRD M.D. Performed By: #### C OVID 19 [facility] COVID-[place] VALDEMAR, SOFIANEG #### [address] Redraw Potassiumon 1 Potassium [Moles/Vol] 3.7 mmol/L Normal 3.5-5.1 [facility] Comment on above: Order Comment: Speci men hemolyzed, redraw requested Performed By: #### C OVID 19 [facility] COVID-19 VALDEMAR, SOFIANEG #### [address] Basic Metabolic Panelon 07-01 Calcium [Mass/Vol] 9.3 mg/dL Normal 8.2-10.2 [facility] Comment on above: Performed By: #### C BC, LACTIC, HS TROP, BMP #### [facility] [address] Chloride [Moles/Vol] 92 mmol/L Low 95-114 [facility] Comment on above: Performed By: #### C BC, LACTIC, HS TROP, BMP #### [facility] [address] CO2 [Moles/Vol] 37.7 mmol/L High 22.0-30.0 [facility] Comment on above: Performed By: #### C BC, LACTIC, HS TROP, BMP #### [address] Creatinine [Mass/Vol] 0.80 mg/dL Normal 0.44-1.03 [facility] Comment on above: Performed By: #### C BC, LACTIC, HS TROP, BMP #### [place] [address] [place] Creatinine Clr Calc Pharmacy 105.32 [facility] Comment on above: Result Comment: PERF ORMED BY: [place] [address] PATHOLOGIST OYSTER SORTER OTILIA BAIRD M.D. Performed By: #### C BC, LACTIC, HS TROP, BMP #### [address] Estimated GFR ( Hilary > 60 [facility] Comment on above: Result Comment: GFR estimated reference range: According to KDOQI guidelines, <60 ml/min/1.73m2 is sufficient to diagnose a patient with chronic kidney disease. Performed By: #### C BC, LACTIC, HS TROP, BMP #### [facility] [address] Estimated GFR (Non- Am > 60 [facility] Comment on above: Performed By: #### C BC, LACTIC, HS TROP, BMP #### [address] [place] [address] [place] Glucose [Mass/Vol] 94 mg/dL Normal 70-100 [facility] Comment on above: Result Comment: [place] om Glucose Reference Range is dependent on time and content of last meal. Glucose of more than 200 mg/dL in a nonstressed, ambulatory subject supports the diagnosis of Diabetes Mellitus. ADA recommended reference range Performed By: #### C BC, LACTIC, HS TROP, BMP #### [address] Potassium [Moles/Vol] 3.6 mmol/L Normal 3.5-5.1 [facility] Comment on above: Performed By: #### C BC, LACTIC, HS TROP, BMP #### [address] Sodium [Moles/Vol] 139 mmol/L Normal 136-146 [facility] Comment on above: Performed By: #### C BC, LACTIC, HS TROP, BMP #### [address] Urea nitrogen [Mass/Vol] 18 mg/dL Normal 9- [facility] Comment on above: Performed By: #### C BC, LACTIC, HS TROP, BMP #### [address] Glucose Poct Glucometerson 0 07-13-2021 Commemt1 Glu2: Cleaned Meter Normal [facility] Comment on above: Result Comment: PERF ORMED BY: [place] [address] PATHOLOGIST OYSTER SORTER OTILIA BAIRD M.D. Performed By: #### C BC, LACTIC, HS TROP, BMP #### [place] [address] [place] Glucose [Mass/Vol] 180 mg/dL Normal [facility] Comment on above: Result Comment: [place] om Glucose Reference Range is dependent on time and content of last meal. Glucose of more than 200 mg/dL in a nonstressed, ambulatory subject supports the diagnosis of Diabetes Mellitus. Performed By: #### C BC, LACTIC, HS TROP, BMP #### [address] Commemt1 Glu2: Cleaned Meter Normal [facility] Comment on above: Result Comment: PERF ORMED BY: [place] [address] PATHOLOGIST OYSTER SORTER OTILIA BAIRD M.D. Performed By: #### C BC, LACTIC, HS TROP, BMP #### [address] Glucose [Mass/Vol] 128 mg/dL Normal [facility] Comment on above: Result Comment: [place] om Glucose Reference Range is dependent on time and content of last meal. Glucose of more than 200 mg/dL in a nonstressed, ambulatory subject supports the diagnosis of Diabetes Mellitus. Performed By: #### C BC, LACTIC, HS TROP, BMP #### [address] Glucose [Mass/Vol] 95 mg/dL Normal [facility] Comment on above: Result Comment: [place] om Glucose Reference Range is dependent on time and content of last meal. Glucose of more than 200 mg/dL in a nonstressed, ambulatory subject supports the diagnosis of Diabetes Mellitus. PERFORMED BY: [place] [address] PATHOLOGIST OYSTER SORTER OTILIA BAIRD M.D. Performed By: #### C BC, LACTIC, HS TROP, BMP #### [address] Basic Metabolic Panelon 07-01 Calcium [Mass/Vol] 9.3 mg/dL Normal 8.2-10.2 [facility] Comment on above: Performed By: #### C BC, LACTIC, HS TROP, BMP #### [address] Chloride [Moles/Vol] 86 mmol/L Low 95-114 [facility] Comment on above: Performed By: #### C BC, LACTIC, HS TROP, BMP #### [address] [place] [address] [place] CO2 [Moles/Vol] 43.4 mmol/L High 22.0-30.0 [facility] Comment on above: Performed By: #### C BC, LACTIC, HS TROP, BMP #### [facility] [address] Creatinine [Mass/Vol] 0.86 mg/dL Normal 0.44-1.03 [facility] Comment on above: Performed By: #### C BC, LACTIC, HS TROP, BMP #### [place] [address] [place] Creatinine Clr Calc Pharmacy 103.59 [facility] Comment on above: Result Comment: PERF ORMED BY: [place] [address] PATHOLOGIST OYSTER SORTER OTILIA BAIRD M.D. Performed By: #### C BC, LACTIC, HS TROP, BMP #### [address] Estimated GFR ( Hilary > 60 [facility] Comment on above: Result Comment: GFR estimated reference range: According to KDOQI guidelines, <60 ml/min/1.73m2 is sufficient to diagnose a patient with chronic kidney disease. Performed By: #### C BC, LACTIC, HS TROP, BMP #### [address] Estimated GFR (Non- Am > 60 [facility] Comment on above: Performed By: #### C BC, LACTIC, HS TROP, BMP #### [place] [address] [place] Glucose [Mass/Vol] 94 mg/dL Normal 70-100 [facility] Comment on above: Result Comment: [place] Glucose Reference Range is dependent on time and content of last meal. Glucose of more than 200 mg/dL in a nonstressed, ambulatory subject supports the diagnosis of Diabetes Mellitus. ADA recommended reference range Performed By: #### C BC, LACTIC, HS TROP, BMP #### [place] [address] [place] Potassium [Moles/Vol] 3.6 mmol/L Normal 3.5-5.1 [facility] Comment on above: Performed By: #### C BC, LACTIC, HS TROP, BMP #### [facility] [address] Sodium [Moles/Vol] 139 mmol/L Normal 136-146 [facility] Comment on above: Performed By: #### C BC, LACTIC, HS TROP, BMP #### [facility] [address] Urea nitrogen [Mass/Vol] 18 mg/dL Normal 9- [facility] Comment on above: Performed By: #### C BC, LACTIC, HS TROP, BMP #### [facility] [address] Glucose Poct Glucometerson 0 07-12-2021 Glucose [Mass/Vol] 138 mg/dL Normal [facility] Comment on above: Result Comment: [place] om Glucose Reference Range is dependent on time and content of last meal. Glucose of more than 200 mg/dL in a nonstressed, ambulatory subject supports the diagnosis of Diabetes Mellitus. PERFORMED BY: [place] [address] PATHOLOGIST OYSTER SORTER OTILIA ABIRD M.D. Performed By: #### C BC, LACTIC, HS TROP, BMP #### [facility] [address] [place] [address] Commemt1 Glu2: Cleaned Meter Normal [facility] Comment on above: Result Comment: PERF ORMED BY: [place] [address] PATHOLOGIST OYSTER SORTER OTILIA BAIRD M.D. Performed By: #### C BC, LACTIC, HS TROP, BMP #### [facility] [address] Glucose [Mass/Vol] 255 mg/dL Normal [facility] Comment on above: Result Comment: [place] om Glucose Reference Range is dependent on time and content of last meal. Glucose of more than 200 mg/dL in a nonstressed, ambulatory subject supports the diagnosis of Diabetes Mellitus. Performed By: #### C BC, LACTIC, HS TROP, BMP #### [address] Commemt1 Glu2: Cleaned Meter [facility] Comment on above: Result Comment: PERF ORMED BY: [place] [address] PATHOLOGIST OYSTER SORTER OTILIA BAIRD M.D. Performed By: #### C BC, LACTIC, HS TROP, BMP #### [address] Glucose [Mass/Vol] 133 mg/dL Normal [facility] Comment on above: Result Comment: [place] om Glucose Reference Range is dependent on time and content of last meal. Glucose of more than 200 mg/dL in a nonstressed, ambulatory subject supports the diagnosis of Diabetes Mellitus. Performed By: #### C BC, LACTIC, HS TROP, BMP #### [address] Commemt1 Glu2: Cleaned Meter [facility] Comment on above: Result Comment: PERF ORMED BY: [place] [address] PATHOLOGIST OYSTER SORTER OTILIA BAIRD M.D. Performed By: #### C BC, LACTIC, HS TROP, BMP #### [address] Glucose [Mass/Vol] 100 mg/dL Normal [facility] Comment on above: Result Comment: [place] om Glucose Reference Range is dependent on time and content of last meal. Glucose of more than 200 mg/dL in a nonstressed, ambulatory subject supports the diagnosis of Diabetes Mellitus. Performed By: #### C BC, LACTIC, HS TROP, BMP #### [address] Basic Metabolic Panelon 07-01 Calcium [Mass/Vol] 9.5 mg/dL Normal 8.2-10.2 [facility] Comment on above: Performed By: #### C BC, LACTIC, HS TROP, BMP #### [facility] [address] [place] [address] [place] Chloride [Moles/Vol] 85 mmol/L Low 95-114 [facility] Comment on above: Performed By: #### C BC, LACTIC, HS TROP, BMP #### [facility] [address] CO2 [Moles/Vol] 39.6 mmol/L High 22.0-30.0 [facility] Comment on above: Performed By: #### C BC, LACTIC, HS TROP, BMP #### [facility] [address] [place] [address] [place] Creatinine [Mass/Vol] 0.99 mg/dL Normal 0.44-1.03 [facility] Comment on above: Performed By: #### C BC, LACTIC, HS TROP, BMP #### [facility] [address] [place] [address] [place] [facility] 89.99 [facility] Comment on above: Result Comment: PERF ORMED BY: [place] [address] PATHOLOGIST OYSTER SORTER OTILIA BAIRD M.D. Performed By: #### C BC, LACTIC, HS TROP, BMP #### [facility] [address] Estimated GFR ( Hilary > 60 [facility] Comment on above: Result Comment: GFR estimated reference range: According to KDOQI guidelines, <60 ml/min/1.73m2 is sufficient to diagnose a patient with chronic kidney disease. Performed By: #### C BC, LACTIC, HS TROP, BMP #### [facility] [address] [place] [address] [place] Estimated GFR (Non- Am 58 [facility] Comment on above: Performed By: #### C BC, LACTIC, HS TROP, BMP #### [facility] [address] [place] [address] [place] Glucose [Mass/Vol] 189 mg/dL High 70-100 [facility] Comment on above: Result Comment: [place] Glucose Reference Range is dependent on time and content of last meal. Glucose of more than 200 mg/dL in a nonstressed, ambulatory subject supports the diagnosis of Diabetes Mellitus. ADA recommended reference range Performed By: #### C BC, LACTIC, HS TROP, BMP #### [facility] [address] Potassium [Moles/Vol] 4.3 mmol/L Normal 3.5-5.1 [facility] Comment on above: Performed By: #### C BC, LACTIC, HS TROP, BMP #### [facility] [address] Sodium [Moles/Vol] 135 mmol/L Low 136-146 [facility] Comment on above: Performed By: #### C BC, LACTIC, HS TROP, BMP #### [address] Urea nitrogen [Mass/Vol] 21 mg/dL Normal 9-23 [facility] Comment on above: Performed By: #### C BC, LACTIC, HS TROP, BMP #### [address] Glucose Poct Glucometerson 0 07-11-2021 Commemt1 Glu2: Cleaned Meter [facility] Comment on above: Result Comment: PERF ORMED BY: [place] [address] PATHOLOGIST OYSTER SORTER OTILIA BAIRD M.D. Performed By: #### C BC, LACTIC, HS TROP, BMP #### [address] Glucose [Mass/Vol] 202 mg/dL Normal [facility] Comment on above: Result Comment: [place] Glucose Reference Range is dependent on time and content of last meal. Glucose of more than 200 mg/dL in a nonstressed, ambulatory subject supports the diagnosis of Diabetes Mellitus. Performed By: #### C BC, LACTIC, HS TROP, BMP #### [address] Commemt1 Glu2: Cleaned Meter [facility] Comment on above: Result Comment: PERF ORMED BY: [place] [address] PATHOLOGIST OYSTER SORTER OTILIA BAIRD M.D. Performed By: #### C BC, LACTIC, HS TROP, BMP #### [address] Glucose [Mass/Vol] 249 mg/dL Normal [facility] Comment on above: Result Comment: [place] Glucose Reference Range is dependent on time and content of last meal. Glucose of more than 200 mg/dL in a nonstressed, ambulatory subject supports the diagnosis of Diabetes Mellitus. Performed By: #### C BC, LACTIC, HS TROP, BMP #### [address] Commemt1 Glu2: Cleaned Meter Normal [facility] Comment on above: Result Comment: PERF ORMED BY: [place] [address] PATHOLOGIST OYSTER SORTER OTILIA BAIRD M.D. Performed By: #### C BC, LACTIC, HS TROP, BMP #### [place] [address] [place] Glucose [Mass/Vol] 141 mg/dL Normal [facility] Comment on above: Result Comment: [place] Glucose Reference Range is dependent on time and content of last meal. Glucose of more than 200 mg/dL in a nonstressed, ambulatory subject supports the diagnosis of Diabetes Mellitus. Performed By: #### C BC, LACTIC, HS TROP, BMP #### [facility] [address] [place] [address] Commemt1 Glu2: Cleaned Meter [facility] Comment on above: Result Comment: PERF ORMED BY: [place] [address] PATHOLOGIST OYSTER SORTER OTILIA BAIRD M.D. Performed By: #### C BC, LACTIC, HS TROP, BMP #### [place] [address] [place] Glucose [Mass/Vol] 103 mg/dL Normal [facility] Comment on above: Result Comment: [place] Glucose Reference Range is dependent on time and content of last meal. Glucose of more than 200 mg/dL in a nonstressed, ambulatory subject supports the diagnosis of Diabetes Mellitus. Performed By: #### C BC, LACTIC, HS TROP, BMP #### [facility] [address] [place] [address] Arterial Blood Gason 021 ABG Base Excess 17.0 mmol/L High -3.0-3.0 [facility] Comment on above: Performed By: #### C BC, LACTIC, HS TROP, BMP #### [facility] [address] ABG Frac Inspired O2 60 % Normal [facility] Comment on above: Performed By: #### C BC, LACTIC, HS TROP, BMP #### [address] ABG Oxygen Content 7.6 mmol/L Normal 6.6-9.7 [facility] Comment on above: Performed By: #### C BC, LACTIC, HS TROP, BMP #### [facility] [address] [place] [address] ABG Oxygen Saturation 94.3 % Low 95.0-100.0 [facility] Comment on above: Performed By: #### C BC, LACTIC, HS TROP, BMP #### [facility] [address] [place] [address] ABG PCO2 90.7 mm[Hg] Off scale high 35.0-45.0 [facility] Comment on above: Performed By: #### C BC, LACTIC, HS TROP, BMP #### [facility] [address] [place] [address] ABG PH 7.34 Low 7.35-7.45 [facility] Comment on above: Performed By: #### C BC, LACTIC, HS TROP, BMP #### [facility] [address] [place] [address] ABG PO2 77.7 mm[Hg] Low 80.0-100.0 [facility] Comment on above: Performed By: #### C BC, LACTIC, HS TROP, BMP #### [facility] [address] [place] [address] CO2 [Moles/Vol] 50.1 mmol/L High 23.0-27.0 [facility] Comment on above: Performed By: #### C BC, LACTIC, HS TROP, BMP #### [address] HCO3 (Bld) [Moles/Vol] 47.3 mmol/L High 23.0-29.0 [facility] Comment on above: Performed By: #### C BC, LACTIC, HS TROP, BMP #### [address] Respiratory Critical [facility] Comment on above: Result Comment: Crit ical Value called on: 07/10/2021 at 05:01 PERFORMED BY: [place] [address] PATHOLOGIST OYSTER SORTER OTILIA BAIRD M.D. Performed By: #### C BC, LACTIC, HS TROP, BMP #### [address] Set Respiratory Rate 12 Normal [facility] Comment on above: Performed By: #### C BC, LACTIC, HS TROP, BMP #### [address] VBG Draw Site Right Radial Normal [facility] Comment on above: Performed By: #### C BC, LACTIC, HS TROP, BMP #### [address] Basic Metabolic Panelon 07-01 Calcium [Mass/Vol] 9.4 mg/dL Normal 8.2-10.2 [facility] Comment on above: Performed By: #### C BC, LACTIC, HS TROP, BMP #### [address] Chloride [Moles/Vol] 88 mmol/L Low 95-114 [facility] Comment on above: Performed By: #### C BC, LACTIC, HS TROP, BMP #### [facility] [address] [place] [address] [place] CO2 [Moles/Vol] 41.2 mmol/L High 22.0-30.0 [facility] Comment on above: Performed By: #### C BC, LACTIC, HS TROP, BMP #### [facility] [address] [place] [address] [place] Creatinine [Mass/Vol] 0.74 mg/dL Normal 0.44-1.03 [facility] Comment on above: Performed By: #### C BC, LACTIC, HS TROP, BMP #### [facility] [address] [place] [address] [place] Creatinine Clr Calc Pharmacy 122.16 [facility] Comment on above: Result Comment: PERF ORMED BY: [place] [address] PATHOLOGIST OYSTER SORTER OTILIA BAIRD M.D. Performed By: #### C BC, LACTIC, HS TROP, BMP #### [facility] [address] Estimated GFR ( Hilary > 60 [facility] Comment on above: Result Comment: GFR estimated reference range: According to KDOQI guidelines, <60 ml/min/1.73m2 is sufficient to diagnose a patient with chronic kidney disease. Performed By: #### C BC, LACTIC, HS TROP, BMP #### [facility] [address] Estimated GFR (Non- Am > 60 [facility] Comment on above: Performed By: #### C BC, LACTIC, HS TROP, BMP #### [facility] [address] Glucose [Mass/Vol] 94 mg/dL Normal 70-100 [facility] Comment on above: Result Comment: [place] Glucose Reference Range is dependent on time and content of last meal. Glucose of more than 200 mg/dL in a nonstressed, ambulatory subject supports the diagnosis of Diabetes Mellitus. ADA recommended reference range Performed By: #### C BC, LACTIC, HS TROP, BMP #### [facility] [address] [place] [id number] [place] Potassium [Moles/Vol] 3.9 mmol/L Normal 3.5-5.1 [facility] Comment on above: Performed By: #### C BC, LACTIC, HS TROP, BMP #### [facility] [address] [place] [address] [place] Sodium [Moles/Vol] 138 mmol/L Normal 136-146 [facility] Comment on above: Performed By: #### C BC, LACTIC, HS TROP, BMP #### [facility] [address] Urea nitrogen [Mass/Vol] 15 mg/dL Normal 9-23 [facility] Comment on above: Performed By: #### C BC, LACTIC, HS TROP, BMP #### [facility] [address] ECH echo transthoracicon ECH echo transthoracic [facility] Main Bureau [address] [place] [address] Echocardiogram Signed Patient: Aliya Moore MR#: [id number] : 1965 Acct:[id number] Age/Sex: 55 / F ADM Date: 07/09/21 Loc: Room: [address] [place] [address] Type: ADM IN Attending Dr: Colby Camara [...] MD 07/10/21 1037 Signed By: 07/10/21 1324 [facility] Glucose Poct Glucometerson 0 07-10-2021 Commemt1 Glu2: Cleaned Meter [facility] Comment on above: Result Comment: PERF ORMED BY: [place] [address] PATHOLOGIST OYSTER SORTER OTILIA BAIRD M.D. Performed By: #### C BC, LACTIC, HS TROP, BMP #### [address] Glucose [Mass/Vol] 124 mg/dL Normal [facility] Comment on above: Result Comment: [place] Glucose Reference Range is dependent on time and content of last meal. Glucose of more than 200 mg/dL in a nonstressed, ambulatory subject supports the diagnosis of Diabetes Mellitus. Performed By: #### C BC, LACTIC, HS TROP, BMP #### [address] Commemt1 Glu2: Cleaned Meter [facility] Comment on above: Result Comment: PERF ORMED BY: [place] [address] PATHOLOGIST OYSTER SORTER OTILIA BAIRD M.D. Performed By: #### C BC, LACTIC, HS TROP, BMP #### [address] Glucose [Mass/Vol] 293 mg/dL Normal [facility] Comment on above: Result Comment: [place] Glucose Reference Range is dependent on time and content of last meal. Glucose of more than 200 mg/dL in a nonstressed, ambulatory subject supports the diagnosis of Diabetes Mellitus. Performed By: #### C BC, LACTIC, HS TROP, BMP #### [facility] [address] [place] [address] Commemt1 Glu2: Cleaned Meter [facility] Comment on above: Result Comment: PERF ORMED BY: [place] [address] PATHOLOGIST OYSTER SORTER OTILIA BAIRD M.D. Performed By: #### C BC, LACTIC, HS TROP, BMP #### [place] [id number] [facility] Glucose [Mass/Vol] 140 mg/dL Normal [facility] Comment on above: Result Comment: [place] Glucose Reference Range is dependent on time and content of last meal. Glucose of more than 200 mg/dL in a nonstressed, ambulatory subject supports the diagnosis of Diabetes Mellitus. Performed By: #### C BC, LACTIC, HS TROP, BMP #### [facility] [address] Glucose [Mass/Vol] 105 mg/dL Normal [facility] Comment on above: Result Comment: [place] Glucose Reference Range is dependent on time and content of last meal. Glucose of more than 200 mg/dL in a nonstressed, ambulatory subject supports the diagnosis of Diabetes Mellitus. PERFORMED BY: [place] [address] PATHOLOGIST OYSTER SORTER OTILIA BAIRD M.D. Performed By: #### C BC, LACTIC, HS TROP, BMP #### [address] B-Type Natriuretic Peptideon 07-09-2021 Natriuretic peptide B (Bld) [Mass/Vol] 121.0 pg/mL High 5-100 [facility] Comment on above: Result Comment: PERF ORMED BY: [place] [address] PATHOLOGIST OYSTER SORTER OTILIA BAIRD M.D. Performed By: #### C BC, LACTIC, HS TROP, BMP #### [address] Basic Metabolic Panelon 0 Calcium [Mass/Vol] 9.0 mg/dL Normal 8.2-10.2 [facility] Comment on above: Performed By: #### C BC, LACTIC, HS TROP, BMP #### [facility] [address] [place] [address] [place] Chloride [Moles/Vol] 92 mmol/L Low 95-114 [facility] Comment on above: Performed By: #### C BC, LACTIC, HS TROP, BMP #### [facility] [address] [place] [address] [place] CO2 [Moles/Vol] 36.9 mmol/L High 22.0-30.0 [facility] Comment on above: Performed By: #### C BC, LACTIC, HS TROP, BMP #### [facility] [address] Creatinine [Mass/Vol] 0.66 mg/dL Normal 0.44-1.03 [facility] Comment on above: Performed By: #### C BC, LACTIC, HS TROP, BMP #### [facility] [address] [place] [address] [place] Creatinine Clr Calc Pharmacy 137.69 [facility] Comment on above: Result Comment: PERF ORMED BY: [place] [address] PATHOLOGIST OYSTER SORTER OTILIA BAIRD M.D. Performed By: #### C BC, LACTIC, HS TROP, BMP #### [address] Estimated GFR ( Hilary > 60 [facility] Comment on above: Result Comment: GFR estimated reference range: According to KDOQI guidelines, <60 ml/min/1.73m2 is sufficient to diagnose a patient with chronic kidney disease. Performed By: #### C BC, LACTIC, HS TROP, BMP #### [address] Estimated GFR (Non- Am > 60 [facility] Comment on above: Performed By: #### C BC, LACTIC, HS TROP, BMP #### [facility] [address] [place] [address] Glucose [Mass/Vol] 119 mg/dL High 70-100 [facility] Comment on above: Result Comment: [place] Glucose Reference Range is dependent on time and content of last meal. Glucose of more than 200 mg/dL in a nonstressed, ambulatory subject supports the diagnosis of Diabetes Mellitus. ADA recommended reference range Performed By: #### C BC, LACTIC, HS TROP, BMP #### [facility] [address] Potassium [Moles/Vol] 4.5 mmol/L Normal 3.5-5.1 [facility] Comment on above: Performed By: #### C BC, LACTIC, HS TROP, BMP #### [facility] [address] [place] [id number] [place] Sodium [Moles/Vol] 137 mmol/L Normal 136-146 [facility] Comment on above: Performed By: #### C BC, LACTIC, HS TROP, BMP #### [facility] [address] [place] [id number] [place] Urea nitrogen [Mass/Vol] 9 mg/dL Normal 9-23 [facility] Comment on above: Performed By: #### C BC, LACTIC, HS TROP, BMP #### [facility] [address] COVID-19 Antigenon 1 COVID-19 [facility] [...] its performance Valdemar Disclaimer characteristic determined by [employer] and Valdemar Disclaimer validated at [facility]. This Valdemar Disclaimer test has not [...] is terminated or revoked sooner. PERFORMED BY: [place] [address] PATHOLOGIST OYSTER SORTER OTILIA BAIRD M.D. 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 This test has not been FDA [...] is terminated or revoked sooner. PERFORMED BY: [place] [address] PATHOLOGIST OYSTER SORTER OTILIA BAIRD M.D. Performed By: #### C OVID 19 [facility], COVID-19 VALDEMAR, SOFIANEG #### [address] Complete Blood Count Auto Di ffon 07-09-2021 Basophils (Bld) [#/Vol] 0.0 10*3/uL Normal 0.0-0.2 [facility] Comment on above: Result Comment: PERF ORMED BY: [facility] [address] [place] [address] PATHOLOGIST OYSTER SORTER OTILIA BAIRD M.D. Performed By: #### C BC, LACTIC, HS TROP, BMP #### [address] Basophils/100 WBC (Bld) 0.4 % Normal . [facility] Comment on above: Performed By: #### C BC, LACTIC, HS TROP, BMP #### [address] Eosinophils (Bld) [#/Vol] 0.2 10*3/uL Normal 0.0-0.45 [facility] Comment on above: Performed By: #### C BC, LACTIC, HS TROP, BMP #### [address] Eosinophils/100 WBC (Bld) 2.5 % Normal . [facility] Comment on above: Performed By: #### C BC, LACTIC, HS TROP, BMP #### [address] Erythrocyte distribution width (RBC) [Ratio] 18.9 % High 11.9-15.3 [facility] Comment on above: Performed By: #### C BC, LACTIC, HS TROP, BMP #### [address] Hematocrit (Bld) [Volume fraction] 39.5 % Normal 34.0-46.4 [facility] Comment on above: Performed By: #### C BC, LACTIC, HS TROP, BMP #### [address] Hemoglobin (Bld) [Mass/Vol] 12.8 g/dL Normal 11.8-15.4 [facility] Comment on above: Performed By: #### C BC, LACTIC, HS TROP, BMP #### [address] Lymphocytes (Bld) [#/Vol] 0.7 10*3/uL Low 1.00-4.8 [facility] Comment on above: Performed By: #### C BC, LACTIC, HS TROP, BMP #### [place] [address] [place] Lymphocytes/100 WBC (Bld) 9.3 % Normal . [facility] Comment on above: Performed By: #### C BC, LACTIC, HS TROP, BMP #### [address] MCH (RBC) [Entitic mass] 28.8 pg Normal 24.7-34.3 [facility] Comment on above: Performed By: #### C BC, LACTIC, HS TROP, BMP #### [address] MCV (RBC) [Entitic vol] 89.1 fL Normal 80-100 [facility] Comment on above: Performed By: #### C BC, LACTIC, HS TROP, BMP #### [address] Mean Corpuscular HGB Conc 32.4 g/dL Normal 32.0-35.0 [facility] Comment on above: Performed By: #### C BC, LACTIC, HS TROP, BMP #### [address] Monocytes (Bld) [#/Vol] 0.7 10*3/uL Normal 0.0-0.8 [facility] Comment on above: Performed By: #### C BC, LACTIC, HS TROP, BMP #### [address] Monocytes/100 WBC (Bld) 8.4 % Normal . [facility] Comment on above: Performed By: #### C BC, LACTIC, HS TROP, BMP #### [address] Neutrophils (Bld) [#/Vol] 6.4 10*3/uL Normal 1.8-7.7 [facility] Comment on above: Performed By: #### C BC, LACTIC, HS TROP, BMP #### [place] [address] [place] Neutrophils/100 WBC (Bld) 79.4 % Normal . [facility] Comment on above: Performed By: #### C BC, LACTIC, HS TROP, BMP #### [address] Nucleated RBC/100 WBC (Bld) [Ratio] 0.2 % Normal 0-0.5 [facility] Comment on above: Performed By: #### C BC, LACTIC, HS TROP, BMP #### [facility] [address] Platelet mean volume (Bld) [Entitic vol] 9.4 fL Normal 6.3-10.7 [facility] Comment on above: Performed By: #### C BC, LACTIC, HS TROP, BMP #### [facility] [address] Platelets (Bld) [#/Vol] 138 10*3/uL Low 150-450 [facility] Comment on above: Performed By: #### C BC, LACTIC, HS TROP, BMP #### [facility] [address] RBC (Bld) [#/Vol] 4.44 10*6/uL Normal 3.60-5.00 [facility] Comment on above: Performed By: #### C BC, LACTIC, HS TROP, BMP #### [address] WBC (Bld) [#/Vol] 8.0 10*3/uL Normal 4.5-11.0 [facility] Comment on above: Performed By: #### C BC, LACTIC, HS TROP, BMP #### [address] D-Dimer High Sensitivityon 0 07-09-2021 D-Dimer High Sensitivity 247 ng/mL High 0-243 [facility] Comment on above: Result Comment: The [...] patients due to co-morbid conditions. PERFORMED BY: [place] [address] PATHOLOGIST OYSTER SORTER OTILIA BAIRD M.D. Performed By: #### C BC, LACTIC, HS TROP, BMP #### [facility] [address] [place] [id number] [place] ECG 12 lead ECGon 07-09-2021 ECG 12 lead ECG [facility] Main Bureau [address] [place] [address] Electrocardiograph Report Signed Patient: Aliya Moore MR#: [id number] : 1965 Acct:[id number] Age/Sex: 55 / F ADM Date: 07/09/21 Loc: Room: [address] [place] [address] Type: ADM IN Attending Dr: Kirk Lopez [...] ECGs available Confirmed by CAROLEE ABDALLA DO ([id number]) on 07/09/2021 1:45:33 AM Referred By: Electronically Signed By:CAROLEE ABDALLA DO Transcribed By: MUS Signed By Carolee Abdalla DO 07/09 0145 [facility] Glucose Poct Glucometerson 0 07-09-2021 Commemt1 Glu2: Cleaned Meter [facility] Comment on above: Result Comment: PERF ORMED BY: [place] [address] PATHOLOGIST OYSTER SORTER OTILIA BAIRD M.D. Performed By: #### C BC, LACTIC, HS TROP, BMP #### [facility] [address] [place] [address] Glucose [Mass/Vol] 154 mg/dL Normal [facility] Comment on above: Result Comment: [place] Glucose Reference Range is dependent on time and content of last meal. Glucose of more than 200 mg/dL in a nonstressed, ambulatory subject supports the diagnosis of Diabetes Mellitus. Performed By: #### C BC, LACTIC, HS TROP, BMP #### [facility] [address] [place] [address] [place] Glucose [Mass/Vol] 132 mg/dL Normal [facility] Comment on above: Result Comment: [place] Glucose Reference Range is dependent on time and content of last meal. Glucose of more than 200 mg/dL in a nonstressed, ambulatory subject supports the diagnosis of Diabetes Mellitus. PERFORMED BY: [place] [address] PATHOLOGIST OYSTER SORTER OTILIA BAIRD M.D. Performed By: #### C BC, LACTIC, HS TROP, BMP #### [address] Glucose [Mass/Vol] 176 mg/dL Normal [facility] Comment on above: Result Comment: [place] Glucose Reference Range is dependent on time and content of last meal. Glucose of more than 200 mg/dL in a nonstressed, ambulatory subject supports the diagnosis of Diabetes Mellitus. PERFORMED BY: [place] [address] PATHOLOGIST OYSTER SORTER OTILIA BAIRD M.D. Performed By: #### C BC, LACTIC, HS TROP, BMP #### [place] [address] [place] Glucose [Mass/Vol] 173 mg/dL Normal [facility] Comment on above: Result Comment: [place] Glucose Reference Range is dependent on time and content of last meal. Glucose of more than 200 mg/dL in a nonstressed, ambulatory subject supports the diagnosis of Diabetes Mellitus. PERFORMED BY: [place] [address] PATHOLOGIST OYSTER SORTER OTILIA BAIRD M.D. Performed By: #### G LULS #### Point of Care testing , Lactic Acidon 07-09-2021 Lactate [Moles/Vol] 0.6 mmol/L Normal 0.5-2.2 [facility] Comment on above: Result Comment: PERF ORMED BY: [address] [place] [address] PATHOLOGIST OYSTER SORTER OTILIA BAIRD M.D. Performed By: #### C BC, LACTIC, HS TROP, BMP #### [address] Valdemar Ag Negativeon 07-09-20 21 Valdemar Ag Negative Negative Normal Negative [facility] Comment on above: Result Comment: This is a duplicate Valdemar SARS Antigen (ROWDY) result to be used for statistical tracking purpose only. PERFORMED BY: [place] [address] PATHOLOGIST OYSTER SORTER OTILIA BAIRD M.D. Performed By: #### C OVID 19 [facility], COVID-19 VALDEMAR, SOFIANEG #### [address] Troponin I High Sensitivityo n 07-09-2021 Troponin I High Sensitivity 14 pg/mL Normal 0-15 [facility] Comment on above: Result Comment: PERF ORMED BY: [place] [address] PATHOLOGIST OYSTER SORTER OTILIA BAIRD M.D. Performed By: #### C BC, LACTIC, HS TROP, BMP #### [address] Venous Blood Gason CO2 [Moles/Vol] 40.3 mmol/L High 24.0-29.0 [facility] Comment on above: Performed By: #### V BG #### Point of Care testing , HCO3 (Bld) [Moles/Vol] 38.2 mmol/L High 23.0-29.0 [facility] Comment on above: Performed By: #### V BG #### Point of Care testing , Respiratory Critical Normal [facility] Comment on above: Result Comment: Crit ical Value called on: 07/08/2021 at 23:40 PERFORMED BY: [place] [address] PATHOLOGIST OYSTER SORTER OTILIA BAIRD M.D. Performed By: #### V BG #### Point of Care testing , VBG Base Excess 9.9 mmol/L High -3.0-3.0 [facility] Comment on above: Performed By: #### V BG #### Point of Care testing , VBG Draw Site Other Normal [facility] Comment on above: Performed By: #### V BG #### Point of Care testing , VBG Frac Inspired O2 70 % Normal [facility] Comment on above: Performed By: #### V BG #### Point of Care testing , VBG Oxygen Saturation 94.1 % Off scale high 73.0-76.0 [facility] Comment on above: Performed By: #### V BG #### Point of Care testing , VBG PCO2 70.1 mm[Hg] High 38.0-50.0 [facility] Comment on above: Performed By: #### V BG #### Point of Care testing , VBG PH Venous PH 7.35 Normal 7.32-7.43 [facility] Comment on above: Performed By: #### V BG #### Point of Care testing , VBG PO2 72.4 mm[Hg] High 35.0-45.0 [facility] Comment on above: Performed By: #### V BG #### Point of Care testing , XR chest 1V portableon 07-09 XR chest 1V portable [facility] [address] XRay Report Signed Patient: Aliya Moore MR#: [id number] : 1965 Acct:[id number] Age/Sex: 55 / F ADM Date: 07/09/21 Loc: Room: [address] [place] [address] Type: ADM IN Attending Dr: Kirk Lopez [...] Sheldon Khan M.D.07/09/2021 8:33 AM Dictation Location: [place] [address] Transcribed By: [facility] 07/09/21832 Dictated By: Sheldon Khan DO 07/09/21831 Signed By: 07/09/21832 [facility] Cardiovascular Lab Reporton 06-15-2021 Cardiovascular Lab Report [facility] Patient Name: Teresa Roper [facility] Connie MR #: [id number] Department of Physician: Boo Landers M.D. Division of Service Date: 06/15/2021 Cardiology Birthdate: 1965 Adult Cardiovascular Room #: [place] [address] Cardiovascular Laboratory Report IMPRESSIONS: 1. Mild disease [...] management; given mild coronary artery disease, aspirin, jcafxuup-tv-utri intensity statin therapy, beta-aleks, and angiotensin-convertin g enzyme inhibitor are indicated. 4. Follow up with nurse Monico practitioner in the next 2 to 3 months. 5. Follow up with her family physician as scheduled. PROCEDURES: Ultrasound-guided access to the right common femoral vein, ultrasound-guided access to the right common femoral artery, right heart catheterization, bilateral selective coronary angiography, placement of a 6-[place]ese MynxGrip closure device. METHODS: After risks, benefits, [...] femoral vein and artery was obtained. A 6-[place]ese 11 cm sheath was placed in each. [...] the procedure. All catheters were removed. A 6-[place] MynxGrip closure device was deployed per protocol [...] Soto M.D. Date Trans: 06/15/2021 11:37 A/sofía [id number] cc: Toshia Sam, MSN, LOG LOADER HELPER-C Department Of Surgery [place] [address] [facility] [address] Normal [facility] Vital Signs Date Time Vital Sign Value Performing Clinician Facility 01-16-2024 11:17-0400 Body temperature 97.7 [degF] [facility] Swapna [facility] 01-16-2024 11:17-0400 Diastolic blood pressure 73 mm[Hg] [facility] Swapna [facility] 01-16-2024 11:17-0400 Heart rate 109 /min [facility] Swapna [facility] 01-16-2024 11:17-0400 Mean blood pressure 92 mm[Hg] [facility] Swapna [facility] 01-16-2024 11:17-0400 Respiratory rate 18 /min [facility] Swapna [facility] 01-16-2024 11:17-0400 SaO2% (BldA) [Mass fraction] 94 % [facility] Swapna [facility] 01-16-2024 11:17-0400 Systolic blood pressure 130 mm[Hg] Mariama Barcenas [facility] 12-05-2023 08:48-0500 Body height 175.3 cm Brea Jj NP Work Phone: [facility] 12-05-2023 08:48-0500 Body mass index (BMI) [Ratio] 37.51 kg/m2 Brea Applez PLATEMAN Work Phone: [facility] 12-05-2023 08:48-0500 Body temperature 97.11 [degF] Brea Applez PLATEMAN Work Phone: [facility] 12-05-2023 08:48-0500 Body weight 115.21 kg Brea Applez PLATEMAN Work Phone: [facility] 12-05-2023 08:48-0500 Diastolic blood pressure 68 mm[Hg] Brea Cheleholz PLATEMAN Work Phone: [facility] 12-05-2023 08:48-0500 Heart rate 103 /min Breayasmany Elaineholz PLATEMAN Work Phone: [facility] 12-05-2023 08:48-0500 Respiratory rate 17 /min Breayasmany Applez PLATEMAN Work Phone: [facility] 12-05-2023 08:48-0500 SaO2% (BldA) [Mass fraction] 99 % Breayasmany Applez PLATEMAN Work Phone: [facility] 12-05-2023 08:48-0500 Systolic blood pressure 110 mm[Hg] Brea Applez PLATEMAN Work Phone: [facility] 09-25-2023 21:50-0500 Diastolic blood pressure 73 mm[Hg] Demond Avni [facility] 09-25-2023 21:50-0500 Heart rate 95 /min Demond Avni [facility] 09-25-2023 21:50-0500 Mean blood pressure 90 mm[Hg] Demond Avni [facility] 09-25-2023 21:50-0500 Respiratory rate 22 /min Demond Avni [facility] 09-25-2023 21:50-0500 SaO2% (BldA) [Mass fraction] 97 % Demond Avni [facility] 09-25-2023 21:50-0500 Systolic blood pressure 123 mm[Hg] Demond Avni [facility] 09-25-2023 20:37-0500 Diastolic blood pressure 77 mm[Hg] Demond Avni [facility] 09-25-2023 20:37-0500 Heart rate 94 /min Demond Avni [facility] 09-25-2023 20:37-0500 Mean blood pressure 99 mm[Hg] Demond Avni [facility] 09-25-2023 20:37-0500 Respiratory rate 18 /min Demond Avni [facility] 09-25-2023 20:37-0500 SaO2% (BldA) [Mass fraction] 97 % Demond Avni [facility] 09-25-2023 20:37-0500 Systolic blood pressure 144 mm[Hg] Demond Avni [facility] 09-25-2023 19:50-0500 Diastolic blood pressure 83 mm[Hg] Demond Avni [facility] 09-25-2023 19:50-0500 Heart rate 100 /min Demond Avni [facility] 09-25-2023 19:50-0500 Mean blood pressure 104 mm[Hg] Demond Avni [facility] 09-25-2023 19:50-0500 Respiratory rate 22 /min Demond Avni [facility] 09-25-2023 19:50-0500 SaO2% (BldA) [Mass fraction] 98 % Demond Avni [facility] 09-25-2023 19:50-0500 Systolic blood pressure 147 mm[Hg] Demond Avni [facility] 09-25-2023 18:23-0500 Body temperature 98.24 [degF] Demond Avni [facility] 09-25-2023 18:23-0500 Heart rate 111 /min Demond Avni [facility] 09-25-2023 18:23-0500 Respiratory rate 24 /min Demond Avni [facility] 09-08-2023 20:26-0500 Body temperature 98.06 [degF] Ramses Reginaldo [facility] 09-08-2023 20:26-0500 Diastolic blood pressure 76 mm[Hg] Ramses Hair [facility] 09-08-2023 20:26-0500 Heart rate 81 /min Ramses Hair [facility] 09-08-2023 20:26-0500 Mean blood pressure 87 mm[Hg] Ramses Hair [facility] 09-08-2023 20:26-0500 Respiratory rate 20 /min Ramses Hair [facility] 09-08-2023 20:26-0500 SaO2% (BldA) [Mass fraction] 99 % Ramses Hair [facility] 09-08-2023 20:26-0500 Systolic blood pressure 110 mm[Hg] Ramses Reginaldo [facility] 09-08-2023 19:28-0500 Diastolic blood pressure 61 mm[Hg] Ramses Hair [facility] 09-08-2023 19:28-0500 Heart rate 86 /min Ramses Hair [facility] 09-08-2023 19:28-0500 Mean blood pressure 82 mm[Hg] Ramses Reginaldo [facility] 09-08-2023 19:28-0500 Respiratory rate 18 /min Ramses Reginaldo [facility] 09-08-2023 19:28-0500 SaO2% (BldA) [Mass fraction] 99 % Ramses Reginaldo [facility] 09-08-2023 19:28-0500 Systolic blood pressure 123 mm[Hg] Ramses Reginaldo [facility] 09-08-2023 18:00-0500 Diastolic blood pressure 75 mm[Hg] Ramses Reginaldo [facility] 09-08-2023 18:00-0500 Heart rate 92 /min Ramses Reginaldo [facility] 09-08-2023 18:00-0500 SaO2% (BldA) [Mass fraction] 91 % Ramses Reginaldo [facility] 09-08-2023 18:00-0500 Systolic blood pressure 124 mm[Hg] Ramses Reginlado [facility] 09-08-2023 16:33-0500 Body temperature 98.24 [degF] Ramses Reginaldo [facility] 09-08-2023 16:33-0500 Heart rate 104 /min Ramses Reginaldo [facility] 09-08-2023 16:33-0500 Respiratory rate 24 /min Ramses Reginaldo [facility] 07-19-2023 09:00-0400 Blood Pressure Location [facility] 07-19-2023 09:00-0400 Body temperature 98.06 [degF] d Al-Marrawi [facility] 07-19-2023 09:00-0400 Diastolic blood pressure 72 mm[Hg] Mhd Al-Marrawi [facility] 07-19-2023 09:00-0400 Heart rate 79 /min Mhd Al-Marrawi [facility] 07-19-2023 09:00-0400 Mean blood pressure 88 mm[Hg] d Al-Marrawi [facility] 07-19-2023 09:00-0400 Respiratory rate 18 /min d Al-Marrawi [facility] 07-19-2023 09:00-0400 SaO2% (BldA) [Mass fraction] 93 % [facility]Mar[facility] 07-19-2023 09:00-0400 Systolic blood pressure 120 mm[Hg] d Al-Marrawi [facility] 06-28-2023 10:00-0400 Blood Pressure Location [facility] 06-28-2023 10:00-0400 Body temperature 98.06 [degF] [facility] 06-28-2023 10:00-0400 Diastolic blood pressure 69 mm[Hg] [facility] [place] 06-28-2023 10:00-0400 Heart rate 101 /min [facility] 06-28-2023 10:00-0400 Mean blood pressure 90 mm[Hg] [facility] 06-28-2023 10:00-0400 Respiratory rate 16 /min [facility] 06-28-2023 10:00-0400 SaO2% (BldA) [Mass fraction] 92 % [facility] 06-28-2023 10:00-0400 Systolic blood pressure 133 mm[Hg] Ezekiel Christian [facility] 06-17-2023 17:06-0400 Hourly Rounding Mbanefo OJUKWU [facility] 06-17-2023 17:06-0400 Promise to Return Mbanefo OJUKWU [facility] 06-17-2023 16:00-0400 Hourly Rounding Mbanefo OJUKWU [facility] 06-17-2023 16:00-0400 Promise to Return Mbanefo OJUKWU [facility] 06-17-2023 15:42-0400 Heart rate 82 /min Mbanefo OJUKWU [facility] 06-17-2023 15:42-0400 SaO2% (BldA) [Mass fraction] 95 % Mbanefo OJUKWU [facility] 06-17-2023 15:42-0400 Diastolic blood pressure 64 mm[Hg] Mbanefo OJUKWU [facility] 06-17-2023 15:42-0400 Mean blood pressure 79 mm[Hg] Mbanefo OJUKWU [facility] 06-17-2023 15:42-0400 Systolic blood pressure 109 mm[Hg] Mbanefo OJUKWU [facility] 06-17-2023 15:41-0400 Body temperature 97.88 [degF] Mbanefo OJUKWU [facility] 06-17-2023 15:05-0400 Hourly Rounding Mbanefo OJUKWU [facility] 06-17-2023 15:05-0400 Promise to Return Mbanefo OJUKWU [facility] 06-17-2023 14:00-0400 SaO2% (BldA) [Mass fraction] 96 % Mbanefo OJUKWU [facility] 06-17-2023 12:53-0400 Heart rate 87 /min Mbanefo OJUKWU [facility] 06-17-2023 12:53-0400 Respiratory rate 18 /min Mbanefo OJUKWU [facility] 06-17-2023 12:48-0400 SaO2% (BldA) [Mass fraction] 95 % Mbanefo OJUKWU [facility] 06-17-2023 12:44-0400 Heart rate 86 /min Mbanefo OJUKWU [facility] 06-17-2023 12:44-0400 Respiratory rate 18 /min Mbanefo OJUKWU [facility] 06-17-2023 12:00-0400 Diastolic blood pressure 66 mm[Hg] Mbanefo OJUKWU [facility] 06-17-2023 12:00-0400 Mean blood pressure 86 mm[Hg] Mbanefo OJUKWU [facility] 06-17-2023 12:00-0400 Systolic blood pressure 125 mm[Hg] Mbanefo OJUKWU [facility] 06-17-2023 09:19-0400 Diastolic blood pressure 71 mm[Hg] Mbanefo OJUKWU [facility] 06-17-2023 09:19-0400 Systolic blood pressure 134 mm[Hg] Mbanefo OJUKWU [facility] 06-17-2023 09:16-0400 gluc 173 mg/dL Mbanefo OJUKWU [facility] 06-17-2023 07:33-0400 Mean blood pressure 90 mm[Hg] Mbanefo OJUKWU [facility] 06-17-2023 07:33-0400 Body temperature 97.88 [degF] Mbanefo OJUKWU [facility] 06-17-2023 04:00-0400 Blood Pressure Location Mbanefo OJUKWU [facility] 06-17-2023 04:00-0400 Body temperature 98.24 [degF] Mbanefo OJUKWU [facility] 06-17-2023 04:00-0400 Mean blood pressure 91 mm[Hg] Mbanefo OJUKWU [facility] 06-17-2023 00:00-0400 Body temperature 97.88 [degF] Mbanefo OJUKWU [facility] 06-16-2023 22:48-0400 Blood Pressure Location Mbanefo OJUKWU [facility] 06-16-2023 22:48-0400 Body temperature 98.24 [degF] Mbanefo OJUKWU [facility] 06-16-2023 22:48-0400 Heart rate 80 /min Mbanefo OJUKWU [facility] 06-16-2023 21:42-0400 Mean blood pressure 76 mm[Hg] Mbanefo OJUKWU [facility] 06-16-2023 21:42-0400 Respiratory rate 18 /min Mbanefo OJUKWU [facility] 06-16-2023 20:45-0400 Mean blood pressure 95 mm[Hg] Mbanefo OJUKWU [facility] 06-16-2023 20:45-0400 Respiratory rate 18 /min Mbanefo OJUKWU [facility] 06-16-2023 19:39-0400 Respiratory rate 18 /min Mbanefo OJUKWU [facility] 06-16-2023 15:51-0400 Heart rate 107 /min Mbanefo OJUKWU [facility] 06-16-2023 15:51-0400 Respiratory rate 22 /min Mbanefo OJUKWU [facility] Encounters Encounter Date Encounter Type Care Provider Facility Start: 02-21-2024 End: 02-21-2024 ambulatory BREA AICHHOLZ Not Available Start: 01-16-2024 End: 01-17-2024 ambulatory Mariama Barcenas Facility:[facility] Start: 01-16-2024 End: 01-16-2024 Patient encounter procedure Mariama Barcenas [facility] Start: 01-10-2024 End: 01-10-2024 ambulatory BREA AICHHOLZ Not Available Start: 01-09-2024 End: 01-10-2024 ambulatory Mhd Yaser Al-Marrawi Facility:[facility] Start: 01-09-2024 End: 01-09-2024 Patient encounter procedure Mhd Yaser Al-Marrawi [facility] Start: 12-08-2023 Refill Brea Aichholz PLATEMAN Work Phone: [facility] Comment on above: Anxiety and depressi on (CMS/HCC) (Primary Dx); Type 2 diabetes mellitus without complication, without long-term current use of insulin (CMS/HCC); Arthritis Start: 12-05-2023 End: 12-05-2023 ambulatory BREA AICHHOLZ Not Available Start: 12-05-2023 End: 12-05-2023 Office outpatient visit 25 minutes Brea Aichholz PLATEMAN Work Phone: [facility] Comment on above: Other insomnia (Prim fay Dx); ROLANDO (obstructive sleep apnea); COPD mixed type (CMS/HCC); Tobacco dependence syndrome; BMI 37.0-37.9, adult; Anxiety and depression (CMS/HCC); Restless leg syndrome Start: 10-19-2023 End: 10-19-2023 ambulatory BREA AICHHOLZ Not Available Start: 09-25-2023 End: 09-25-2023 Emergency department patient visit Moses Fischer Facility:[facility] Start: 09-25-2023 End: 09-25-2023 Emergency department patient visit Demond Holly [facility] Start: 09-08-2023 End: 09-08-2023 Emergency department patient visit Ramses Hair Facility:[facility] Start: 09-08-2023 End: 09-08-2023 Emergency department patient visit Ramses Hair [facility] Start: 07-20-2023 End: 07-20-2023 ambulatory EHAB [facility] Start: 07-19-2023 End: 07-20-2023 ambulatory Mhd Ryan Bob Facility:[facility] Start: 07-19-2023 End: 07-19-2023 Patient encounter procedure Mhd Ryan Bob [facility] Start: 06-28-2023 End: 06-29-2023 ambulatory Mhd Yaser Al-Marrawi Facility:[facility] Start: 06-28-2023 End: 06-29-2023 ambulatory Mhd Yaser Al-Marrawi Facility:[facility] Start: 06-28-2023 End: 06-28-2023 Patient encounter procedure Ezekiel Christian [facility] Start: 06-16-2023 End: 06-17-2023 ambulatory Mbaneclovis OVIDHIWU Facility:[facility] Start: 06-16-2023 End: 06-17-2023 Observation Alex OVIDHIWU [facility] Start: 02-23-2023 End: 02-23-[address] SHELDON CARVAJAL . Facility:[facility] Start: 02-01-2023 End: 02-02-2023 ambulatory CORRINA GAINES . Facility:[facility] Start: 01-12-2023 End: 01-13-2023 ambulatory DRILL FOREMAN BREA AICHHOLZ Facility:[facility] Start: 01-03-2023 End: 01-04-2023 ambulatory DRILL FOREMAN BREA AICHHOLZ Facility:[facility] Start: 12-24-2022 End: 12-24-2022 ambulatory TOSHIA SAM [facility] Start: 11-04-2022 End: 11-05-2022 ambulatory DRILL FOREMAN BREA AICHHOLZ Facility:[facility] Start: 07-28-2022 End: 07-29-2022 ambulatory DRILL FOREMAN BREA AICHHOLZ Facility:[facility] Start: 04-30-2022 End: 05-01-2022 ambulatory DRILL FOREMAN BREA AICHHOLZ Facility:[facility] Start: 03-26-2022 End: 03-26-2022 ambulatory DRILL FOREMAN BREA AICHHOLZ Facility:[facility] Start: 06-15-2021 End: 06-16-2021 ambulatory TOSHIA SAM Facility:[facility] Procedures Date Procedure Procedure Detail Performing Clinician Start: 04-14-2023 Mammography Brea Paula mcmahon PLATEMAN Work Phone: Start: 03-31-2020 Colonoscopy Brea Paula mcmahon PLATEMAN Work Phone: Start: 05-05-1987 section Elijah Christian Start: 06-20-1984 section Elijah Christian Cyst (disorder) Ezekiel Allen solorzano Comment on above: Removal of cyst of r ight foot. Knee region structur e (body structure) Ezekiel Anahi Comment on above: surgery Plan of Treatment Date Care Activity Detail Author Start: 03-31-2030 Screening for malign ant neoplasm of colon [facility] Start: 06-23-2028 Screening for malign ant neoplasm of cervix [facility] Start: 01-29-2025 Glaucoma screening Diabetes: R etinopathy Screening [facility] Start: 04-29-2024 Influenza vaccination Influenza Vacc ine (#1) [facility] Comment on above: Postponed from 07/01 (Patient Refused) Start: 04-14-2024 Screening for malign ant neoplasm of breast Mammogram [facility] Start: 04-14-2024 Urine screening for protein Diabetes: Urine Protein Screening [facility] Start: 01-25-2024 Hemoglobin A1c measurement Diabetes: Hemoglobin A1C [facility] Start: 01-10-2024 End: 01-10-2024 Patient encounter procedure 01/10/2024 9:00 AM EDT Office Visit [facility] [address] [place] [id number] Brea Jj, TOBIAS [address] [place] [id number] [facility] Start: 1985 Screening for malign ant neoplasm of cervix Pap Smear [facility] Start: 1965 Screening for malign ant neoplasm of colon [facility] Payers Date Payer Category Payer Medicaid [employer] [place] [employer] [id number] 2020-Present [address] [place] [address] [id number] 1964 Unknown [id number] 2.16.840.1.690474.3.579.2.647 1965 Unknown [id number] 2.16.840.1.671998.3.579.2.593 1964 Unknown [id number] 2.16.840.1.866576.3.579.2.593 1964 Unknown [id number] 2.16.840.1.529122.3.579.2.593 1964 Unknown [id number] 2.16.840.1.655572.3.579.2.593 1964 Unknown [id number] 2.16.840.1.133761.3.579.2.593 1964 Unknown [id number] 2.16.840.1.773648.3.579.2.593 1964 Unknown [id number] 2.16.840.1.167473.3.579.2.593 1964 Unknown [id number] 2.16.840.1.298486.3.579.2.593 1964 Unknown [id number] 2.16.840.1.562456.3.579.2.727 1964 Unknown [id number] 2.16.840.1.221821.3.579.2.727 1964 Unknown [id number] 2.16.840.1.552110.3.579.2.727 1964 Unknown [id number] 2.16.840.1.473045.3.579.2.727 1964 Unknown [id number] 2.16.840.1.724185.3.579.2.727 1964 Unknown [id number] 2.16.840.1.822351.3.579.2.727 1964 Unknown [id number] 2.16.840.1.968869.3.579.2.727 1964 Unknown [id number] 2.16.840.1.885220.3.579.2.727 1964 Unknown [id number] 2.16.840.1.566513.3.579.2.727 1964 Unknown [id number] 2.16.840.1.082994.3.579.2.1259 1964 Unknown [id number] 2.16.840.1.866156.3.579.2.9 1964 Unknown [id number] 2.16.840.1.786835.3.579.2.1259 1964 Unknown [id number] 2.16.840.1.261631.3.579.2.9 1959 Unknown [id number] Social History Date Type Detail Facility Tobacco Former smoker [facility] Comment on above: 1/2 pack a day Tobacco smoking status No Smokin g Status Entered [facility] Start: 04-21-2023 End: 12-05-2023 Sex Assigned At Female [facility] Start: 06-28-2023 End: 10-19-2023 Tobacco smoking status Ex-smoker (finding) [facility] Comment on above: Quit 06/19/23 1/2 pack [...] Dates USE ONCE DAILY A S DIRECTED [id number] Start: 03-17-2023 Functional Status Date Assessment Result Facility 09-25-2023 Functional Status N/A [facility] 09-08-2023 Functional Status N/A [facility] 06-16-2023 Functional Status N/A [facility] 06-16-2023 Functional Status [facility] Clinical Notes 12-24-2022 to 01-16-2024 Brea Jj, TOBIAS - 12/05/2023 9:41 AM ESTBrea Jj, TOBIAS - 12/05/2023 9:41 AM ESTJacquelinesa Анна, PLATEMAN - 12/05/2023 9:40 AM ESTLisa Анна, PLATEMAN - 12/05/2023 9:40 AM EST Note Date & Type Note Facility 01-16-2024 Evaluation + Plan note Diagnostic Tests PendingMethylmalonic Acid 01/16/24 [facility] 12-05-2023 History of Present illness Narrative Associated [...] Medical History: Diagnosis Date Anxiety and depression ([facility]) 10/12/2023 Arthritis Class 2 severe obesity due to excess calories with serious comorbidity in adult ([facility]) 10/19/2023 COPD (chronic obstructive pulmonary disease) [facility] [facility]) Fibrocystic breast disease Mixed hyperlipidemia ([facility]) 10/12/2023 ROLANDO (obstructive sleep apnea) Other insomnia 10/19/2023 Primary hypertension ([facility]) 10/12/2023 Restless leg syndrome 10/12/2023 Type 2 diabetes mellitus without complication, without long-term current use of insulin ([facility]) 10/19/2023 Past Surgical History: Procedure [...] BMI 37.0-37.9, adult documented in this encounter [facility] 09-25-2023 Hospital Discharge instructions Patient Education 09/25/2023 [...] Follow these instructions at home: Medicines Take jfll-afo-tqinpgo and prescription medicines only as told by [...] important. Where to find more information National [place] of Diabetes and Digestive and Kidney Diseases: [...] provider. Document Revised: 09/08/2020 Document Reviewed: 09/08/2020 [employer] Patient Education 2022 [employer] Follow Up Care 09/25/2023 18:11:16 With:[facility] Address: [address] [place] [address] 3, [address] Floor, [address] [place] [phone] Business (1) When:09/28/2023 21:47:26 With:BREA АННА Address: [address] [place] [address] [phone] Business (1) When:Within 3 Day(s) [facility] 09-25-2023 Evaluation + Plan note Extrac aura [...] Panel 12/27/23 * D-Dimer 12/27/23 [facility]11-09-2023 Hospital Discharge instructions Patient Education 09/08/2023 20:29:12 [...] Follow these instructions at home: Medicines Take gzuy-pck-egzxdpc and prescription medicines only as told by [...] provider. Document Revised: 12/31/2021 Document Reviewed: 12/31/2021 [employer] Patient Education 2022 [employer]. 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 Says she was admitted to [facility] in [place] for chest pain. Says she was diagnosed with PE. Following with isotope technologist now and was started on Eliquis. She [...] history of COPD (chronic obstructive pulmonary disease) ([facility]), Diabetes mellitus ([facility]), Hyperlipidemia, Hypertension, and Sleep apnea. [...] edema History of pu (more content not included)...[facility] 07-19-2023 Hospital Discharge instructions Follow Up Care 07/19/2023 10:53:55 With:Swapna ANGUIANO, Mariama Chen, ONC Address: [place] [address] [phone] When: Unknown Comments:iron studies, b12, folate, mma todayfollow-up in 6mo with PLATEMAN [facility]08-29-2023 Hospital Discharge instructions Follow Up Care 06/28/2023 11:35:56 With:Roby Bob Address: [address] [phone] Business (1) When: Unknown Comments:Continue ELiquis for 6 months total.D dimer, CBCD and CMP end of December 2023.RTC end of December,sooner if new SOB or CP or Leg pain or swelling or bleeding. [facility]08-18-2023 NoteEchocardiology Procedure Exam Date/Time Accession # Ordering Echo Transthoracic 06/17/2023 15:26 EDT [id number] JANETTE BOOTHE, Mbanefo Complete CPT code 02395 [id number] Reason for Exam (Echo Transthoracic Complete) Acute pulmonary embolism;Other (please specify) Report [address] [address] Adult Echocardiogram Report Name: ALIYA MOORE Study Date: 06/17/2023 02:55 PM BP: 132/70 mmHg Patient Location: [address] [place] [address] HR: 85 : 1965 Gender: Female Age: 57 yrs Ethnicity: [facility] Weight: 251 lb Reason For Study: [...] Satinder RODNEY MD Transcribed by: SENTHIL Technologist: [facility]08-18-2023 Note Admission and Discharge Information Admitting [...] female cigarette smoker with history of hypertension, sgq-ggdbstc-vilyjucqw diabetes mellitus type 2, obesity, chronic hypoxic respiratory failure on 3 L home oxygen, depressionpresented with complaints of right-sided chest pain. She was subsequently admitted to [facility] with chest pain secondary to acute [...] primary care physician as well as the isotope technologist. Significant Findings (06/16/2023 19:59 EDT US LE [...] 75.7 % Lymph Auto - 14.3 % [place] Auto - 8.8 % Eos Auto - 0.9 % Basophil Auto - 0.3 % Neutro Absolute - 6.4 E9/L Lymph Absolute - 1.2 E9/L [place] Absolute - 0.7 E9/L Eos Absolute - [...] - 133 mg/dL POC Device SN - [id number] POC User ID - [id number] POC Username - FAVIOLA MURO CBC w/ [...] Discharge Plan Discharge D (more content not included)...[facility]Result Comment: Electronically Signed By: JANETTE BOOTHE, Mbanefo\.br\Date and Time Signed: 06/17/23 14:21 [id number] Hospital Discharge instructions Patient Education 06/17/2023 14:17:33 [...] Follow these instructions at home: Medicines Take qinb-iru-apgjvjn and prescription medicines only as told by [...] is important. Where to find more information [place] [employer]: www.lung.org Centers for Disease Control [...] provider. Document Revised: 09/18/2021 Document Reviewed: 09/18/2021 [employer] Patient Education 2022 [employer]. Follow Up Care 06/16/2023 15:48:06 With:BREA JJ Address: [address] [place] [phone] Business (1) When:1 week Comments:A voice message is left with this office with your information so they can call you for a follow upappiontment. Please call them if you do not hear from them in a few days. Thank you. With:Ezekiel Christian Address: [facility] [address] [place] [address]- When:06/28/2023 11:00:00 [facility]08-18-2023 Evaluation + Plan noteExtracted from: Title:Discharge Note [...] puff(s), Inhalation, BID fluticasone Nasal 0.05 mg/inh [place], 2 spray(s), Nasal, Daily furosemide 20 mg Tab, 20 mg= 1 tab(s), Oral, Daily gabapentin 300 mg Cap, 300 mg= 1 cap(s), Oral, BID hydrochlorothiazide-lisinopril 25 mg-20 mg Tab, 1 tab(s), Oral, Daily lamotrigine 25 mg Tab, 25 mg= 1 tab(s), Oral, BID pioglitazone 15 mg Tab, 15 mg= 1 tab(s), Oral, Daily Potassium Chloride (Shm-Pdgn-Sks 10) 10 mEq oral tablet, extended release pramipexole 0.5 mg oral tablet, 0.5 mg= 1 tab(s), Oral, TID theophylline 300 mg ER Tab, 300 mg= 1 tab(s), Oral, q12hr traZODONE 50 mg Tab, 50 mg= 1 tab(s), Oral, Once a day (at bedtime) Ventolin HFA 90 mcg/inh Aerosol-Adpt, 1 puff(s), Inhalation, QID, PRN With When Contact Information Ezekiel Christian 06/28/2023 11:[address] [facility] [address] [place] [address]- Additional Instructions: BREA JJ Within 1 week [address] [place] [address] [phone] Business (1) Additional Instructions: A voice message is left with this office with your information so they can call you for a follow up appiontment. Please call them if you do not hear from them in a few days. Thank you. Pulmonary Embolism Extracted from: Title:Admission H & P Author:JANETTE BOOTHE, Nimcofo Date:06/16/23 57-year-old female cigarette smoker with history of hypertension, psj-egevkgh-nxqkizdpw diabetes mellitus, obesity, chronic hypoxic respiratory failure [...] Ordered: Initial Hospital Care/Day High 75 Minutes 06459 2. Acute pulmonary embolism (I26.99: Other pulmonary [...] Ordered: Initial Hospital Care/Day High 75 Minutes 38033 3. Sinus tachycardia (R00.0: Tachycardia, unspecified) Secondary to above acute pulmonary embolism. Monitor on telemetry. Ordered: Initial Hospital Care/Day High 75 Minutes 39654 4. COPD without exacerbation (J44.9: Chronic obstructive pulmonary disease, unspecified) Supportive care. Continue on nebulizer treatments. Ordered: Initial Hospital Care/Day High 75 Minutes 11772 5. Hypertension (I10: Essential (primary) hypertension) We will verify home medications and resume accordingly. Ordered: Initial Hospital Care/Day High 75 Minutes 66138 6. Diabetes mellitus (E11.9: Type 2 diabetes [...] deep vein thrombosis (DVT) prophylaxis (Z79.899: Other correction (current) drug therapy) Eliquis. The patient will [...] made to ensure accuracy. However inadvertent computerized fnps errors may be present. Alex Barrientos. Hospitalist. [...] deep vein thrombosis (DVT) prophylaxis (Z79.899: Other long term care administrator (current) drug therapy) 4. COPD without exacerbation [...] Appointments Appointment Date:06/28/2023 11:00:00 AM Scheduled Provider: [facility] Office Visit [facility] () [facility]08-18-2023 Hospital Discharge instructions Follow Up Care 06/17/2023 09:42:41 With:Roby Bob Address: [facility] [address] [place] [phone] Business (1) When: Unknown Comments:THrombophilia labs now with D dimer.D dimer in 3 weeks if D dimer from now is still high.Continue Eliquis 5 mg twice daily for minimum of 6 months.RTC in 3 weeks for results. [facility]08-17-2023 NoteChief Complaint CP started this afternoon while sitting down. states mid sternal CP 10/10. wears 3L O2 all the time. History of Present Illness 57-year-old female cigarette smoker with history of hypertension, qcz-xmxrnkn-gokhcabwj diabetes mellitus, obesity, chronic hypoxic respiratory failure [...] 16:00:00) Lymph Auto: 14.3 % (06/16/23 16:00:00) [place] Auto: 8.8 % (06/16/23 16:00:00) Eos Auto: 0.9 % (06/16/23 16:00:00) Basophil Auto: 0.3 % (06/16/23 16:00:00) Neutro Absolute: 6.4 E9/L (06/16/23 16:00:00) Lymph Absolute: 1.2 E9/L (06/16/23 16:00:00) [place] Absolute: 0.7 E9/L (06/16/23 16:00:00) Eos Absolute: [...] RIGHT LOWER LOBE. E (more content not included)...[facility]: Result Comment: Electronically Signed By: JANETTE BOOTHE, Alex\.br\Date and Time Signed: 06/16/23 19:05 [id number] NoteStable, f[facility] NoteCurrently well controlled with teresa [facility]02-24-2023 NoteNo concerning symptoms, overall she is doing well.[facility]02-24-2023 Note Hypertension is well controlled 102/62 Continue lisinopril/HCTZ, lasix Renal function normalUnK[facility]-24-2023 NotePatient here for 6 mo follow up hypertension and myocardial bridge of coronary artery. Had labs in Jul 2022. Denies chest pain and lightheadedness. Review of Systems Cardiovascular: Positive for dyspnea on exertion. Respiratory: Positive for cough and shortness of breath. Musculoskeletal: Positive for arthritis, back pain and joint pain. Neurological: Positive for headaches. All other systems reviewed and are negative.[facility] 12-24-2022 NoteUTP CARDIOLOGY PROGRESS NOTE HPI: [...] most likely r/t pulmo (more content not included)...[facility] 12-24-2022 NoteProvider had extended 10 min discussion again with patient about smoking cessation, at this time she doesn't want to take any further medication or that she is ready to quit smoking at this time.[facility] Evaluation + Plan note Future Appointments Appointment Date:07/19/2023 10:00:00 AM Scheduled Provider: Location:.ONCOLOGY Appointment Type:ONC [facility] 30 (FT) [facility] Future Appointments Appointment Date:01/16/2024 09:00:00 AM Scheduled Provider: [facility] Type:ONC Office Visit 30 (FT) Future Scheduled Tests Laboratory* CBC w/ Auto Diff 12/27/23 * Comprehensive Metabolic Panel 12/27/23 * D-Dimer 12/27/23 [facility] Future Appointments Appointment Date:01/16/2024 11:30:00 AM Scheduled Provider:Mariama Moore Location:.ONCOLOGY Appointment Type:ONC [facility] (FT[facility] Diagnosis Other insomnia- Primary ROLANDO (obstructive [...] data available for this section [facility] No data available for this section [facility] No data available for this section [facility] Summary Purpose Family History No Family History [...] 06/22/2021 [facility] DATE CREATED AUTHOR AUTHOR'S ORGANIZ ATION 12/15/[address] [facility] DATE CREATED AUTHOR AUTHOR'S ORGANIZ ATION 02/26/2023 [facility] DATE CREATED AUTHOR AUTHOR'S ORGANIZ ATION 09/10/[address] 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 [employer] provides no warranty or guarantee of the accuracy or completeness of information in this document.
== END 2024-04-16 08:12 | disposition home or self-care (01) ==
LOC: MAMMO 08:11
PROVIDERS: PCP Nurse Practitioner; Visit Provider Nurse Practitioner
DX: Z12.31 Encounter for screening mammogram for malignant neoplasm of breast (principal)
CPT/HCPCS: 77063; 77067

== ENCOUNTER 2024-05-25 09:46 | Outpatient (OUT) | payer OTHER, SELFPAY ==
[2024-05-25 10:08] LABS: Basophils Percent Auto 0.4 % (0.2-2.0); Eosinophils Absolute Auto 0.2 10^3/uL (0.0-0.7); Eosinophils Percent Auto 3.5 % (0.9-7.0); Hematocrit 44.5 % (36.0-48.0); Hemoglobin 14.3 g/dL (12.0-16.0); Immature Granulocytes Abs Auto 0.01 10^3/uL (0.00-0.03); Immature Granulocytes Pct Auto 0.1 % (0.0-0.5); Lymphocytes Absolute Auto 1.5 10^3/uL (1.2-3.8); Lymphocytes Percent Auto 21.4 % (20.5-60.0); Mean Corpuscular HGB Conc 32.1 g/dL (29.9-35.2); Mean Corpuscular Hemoglobin 29.4 pg (26.7-34.0); Mean Corpuscular Volume 91.6 fL (81.0-99.0); Mean Platelet Volume 12.4 fL (9.5-13.5); Monocytes Absolute Auto 0.5 10^3/uL (0.3-0.8); Monocytes Percent Auto 7.8 % (1.7-12.0); Neutrophils Absolute Auto 4.5 10^3/uL (1.4-6.5); Neutrophils Percent Auto 66.8 % (43.0-75.0); Platelet Count 186 10^3/uL (150-450); Red Blood Count 4.86 10^6/uL (4.20-5.40); Red Cell Distribution Width 15.3 % (11.0-15.0); White Blood Count 6.8 10^3/uL (4.0-11.0)
--- OUTSIDE RECORDS SUMMARY | 2024-05-25 10:08 | XMS_ITS | CCD ---
Author Organization [facility] CliniSymd Care Team Providers Care Chief Electrician Name Role Phone TOSHIA SAM Attending Unavailable TOSHIA SAM Admitting Unavailable SELF, REFERRED Referring Unavailable SELF, REFERRED Primary Care Unavailable AICHHOLZ, STYRENE DEHYDRATION REACTOR OPERATOR BREA Primary Care Unavailable SAMSA ., CORRINA Consulting Unavailable SAMSA ., CORRINA Admitting Unavailable SAMSA ., CORRINA Attending Unavailable AICHHOLZ, STYRENE DEHYDRATION REACTOR OPERATOR BREA Attending Unavailable AICHHOLZ, STYRENE DEHYDRATION REACTOR OPERATOR BREA Consulting Unavailable AICHHOLZ, STYRENE DEHYDRATION REACTOR OPERATOR BREA Primary Care Unavailable AICHHOLZ, STYRENE DEHYDRATION REACTOR OPERATOR BREA Admitting Unavailable AICHHOLZ, STYRENE DEHYDRATION REACTOR OPERATOR BREA Primary Care Unavailable DR MIGUEL MEDEROS Consulting Unavailable SAMSA ., CORRINA Admitting Unavailable SAMSA ., CORRINA Attending Unavailable SAMSA ., CORRINA Consulting Unavailable SAMSA ., CORRINA Attending Unavailable SAMSA ., CORRINA Consulting Unavailable SAMSA ., CORRINA Admitting Unavailable AICHHOLZ, STYRENE DEHYDRATION REACTOR OPERATOR BREA Primary Care Unavailable AICHHOLZ, STYRENE DEHYDRATION REACTOR OPERATOR BREA Attending Unavailable DR LEANA AYOUB V Consulting Unavailable AICHHOLZ, STYRENE DEHYDRATION REACTOR OPERATOR BREA Primary Care Unavailable AICHHOLZ, STYRENE DEHYDRATION REACTOR OPERATOR BREA Admitting Unavailable AICHHOLZ, STYRENE DEHYDRATION REACTOR OPERATOR BREA Consulting Unavailable PAY ., DR SALAZAR Admitting Unavailable PAY ., DR SALAZAR Attending Unavailable PAY ., DR SALAZAR Consulting Unavailable AICHHOLZ, STYRENE DEHYDRATION REACTOR OPERATOR BREA Primary Care Unavailable JUAN JOHNSON Consulting UnavailJustine Kauffman Consulting Unavailable AICHHOLZ, STYRENE DEHYDRATION REACTOR OPERATOR BREA Primary Care Unavailable PAY ., DR SALAZAR Attending Unavailable PAY ., DR SALAZAR Admitting Unavailable QUETA .JUAN Consulting Unavailabl e POLICARO, KENDY Consulting Unavailable АННА, STYRENE DEHYDRATION REACTOR OPERATOR BREA Attending Unavailable AICHHOLDania, ENRIQUE BREA Consulting Unavailable AICHHOLDania, ENRIQUE BREA Primary Care Unavailable AICHHOLDania, STYRENE DEHYDRATION REACTOR OPERATOR BREA Admitting Unavailable AICHRASHMI, BREA J Primary Care Physician SPENCERSubhash HASTINGSie Unavailable TOSHIA SAM Attending Unavailable MARLENE SOTO Attending Unavailable Aichholz Brea COLLADO Unavailable Jose M Light MD Primary Care Provider [phone] Roby Bob Attending Unavailabl e Al-Maronur, Roby Davis Admitting Unavailabl e OJUKWU, Mbanefo Admitting Unavailable OJUKWU, Mbanefo Attending Unavailable Moses Fischer Attending Unavailable Ramses Hair Attending Unavailable Mariama Barcenas Attending Unavailable Al-Maronur, Roby Davis Attending Unavailabl e Al-Marrawi, Roby Davis Attending Unavailabl e OJUKWU, Mbanefo Referring Unavailable Mariama Barcenas Admitting Unavailable Mariama Barcenas Attending Unavailable Al-Marrawi, Roby Davis Attending Unavailabl e Al-Marrawi, Mhd Yaser Admitting Unavailabl e AICHHOLZ, BREA Attending Unavailable AICHHOLZ, BREA Attending Unavailable AICHHOLZ, BREA Attending Unavailable CATERINAHHOLZ, BREA Attending Unavailable Allergies Allergy Classification Reported Allergen(s) Allergy Type Date of Onset Reaction(s) Facility (1 source) No Known Medication Allergies; Translations: [No Known Medication Allergies] Propensity to adverse reactions (disorder) [facility] Repository Medications Current Medications Medication Drug Class(es) Dates Sig (Normalized) Sig (Original) [id number] 200 actuat albuterol 0.09 mg/actuat metered dose [...] BID, # 180 tab(s), Refills(s) 3, Pharmacy: [facility] 1155, 175, cm, 06/28/23 10:58:00 EDT, Height/Length Dosing, 114.6, kg, 06/28/23 10:58:00 EDT, Weight Dosing Start Date: 06/28/23 Status: Ordered Start: 06-17-2023 take 2 tablets by [facility] twice daily, then take 1 tablet by [...] day(s), # 28 cap(s), Refills(s) 0, Pharmacy: [facility] 1155, 175, cm, 09/25/23 18:25:00 EST, [...] Start: 06-17-2023 fluticasone Na margaret 0.05 mg/inh [place] 2 spray(s), Nasal, Daily, 16 gram, Refill(s) [...] dose inhaler (11 sources) beta2-Adrenergic Agonist Start: 06-17-2023 take 2 [...] End: 01-07-2024 take 1 tablet by mouth once daily pioglitazone 15 mg Tab 15 mg = 1 tab(s), Oral, Daily, # 30 tab(s), Refills(s) 0 Start Date: 06/17/23 Status: Ordered Potassium Chloride (11 sources) Start: 06-17-2023 Potassium Chloride (Dfu-Owzv-Kze 10) 10 mEq oral tablet, extended release [...] 12-05-2023 Chronic Other aftercare (1 source) 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; Translations: [RETIREMENT CURRENT USE OF ASPIRIN] Onset: 02-26-2023 Episodic Other aftercare (1 source) Other snf (current) drug therapy; Translations: [OTH HUMAN PERFORMANCE TECHNOLOGIST CURRENT DRUG THERAPY] Onset: 02-26-2023 Episodic Other aftercare (1 source) Long-term current use of drug therapy; Translations: [Other intermediate accountant (current) drug therapy] Onset: 06-16-2023 Episodic Other [...] [Moles/Vol] 301 nmol/L Invalid Interpretation Code 0-378 [facility] Comment on above: Result Comment: This test was developed and its performance characteristics determined by [facility]. It has not been cleared or approved by the Food and Drug Administration. Performed at: [facility] [id number] MD Tony Laird Performed By: #### 2 004612, 0955290, 8600185, 3335317, 8490225, 2095608, 41272709 ####[facility] [address] [place] [id number] Oncology Progress Noteon Oncology Progress Note Chief Complaint PE Pt states she has had a couple visits to hosp. Poss Gallbladder. Pt just has ques on how blood work results are. Diagnoses 1. History of pulmonary embolism (Z86.711: Personal history of pulmonary embolism) Oncological History/ROS/PE/Assess ment and Plan Aliya was referred to our [place] [facility] [place] Thromb[place] work up and decision about duration of anticoagulation for the acute PE diagnosed on . She is a 57-year-old female cigarette smoker with history of hypertension, vxn-wlmwkrx-fzfbzwwxa diabetes mellitus, obesity, chronic hypoxic respiratory failure on 3 L home oxygen, and depression who presented on 06/16/23 to [facility] with complaints of right-sided chest pain [...] cramping a lot. has had colonoscopy at [facility] Physical Examination General: alert, no acute [...] tabs. Follow-up With When Contact Information Swapna CHUN-KATIE, Mariama Chen, ONC [facility] [address] [place] [phone] Additional Instructions: iron studies, b12, folate, mm (more content not included)... Normal [facility] CHEMISTRYOrdered By: SYSTEM SYSTEM on 01-16-2024 [...] Treatmenton 12-29 Consent for Treatment [id number]#1 .00TIFF Normal [facility] Consent for Treatment [id number]#1 .00TIFF Normal [facility] Ferritinon 01-16-2024 Ferritin [Mass/Vol] 63 ng/mL Normal 11-307 [facility] Comment on above: Performed By: #### 2 576267, 6715449, 1293085, 8127515, 9036155, 5615175, 38530184 ####[facility] [address] [place] [address] Folateon 01-16-2024 Folate [Mass/Vol] 15.3 ng/mL Normal >=6.7 [facility] Comment on above: Performed By: #### 2 733063, 4094272, 6994821, 1231444, 9722699, 1938344, 17826722 ####[facility] [address] [place] [address] Ironon 01-16-2024 Iron [Mass/Vol] 63 microgram/dL Normal 35-153 [facility] Comment on above: Performed By: #### 2 586751, 9335712, 2433533, 0299318, 5759394, 4742895, 52569754 ####[facility] [address] [place] [address] Iron Saturationon 01-16-2024 Iron binding capacity [Mass/Vol] 365 microgram/dL Normal 250-400 [facility] Comment on above: Performed By: #### 2 546230, 9263015, 2719565, 5962808, 0933266, 2633256, 37452085 ####[facility] [address] [place] [address] Iron saturation [Mass fraction] 17 % Low 20-50 [facility] Comment on above: Performed By: #### 2 599934, 4551771, 3573296, 5075510, 5867831, 7684599, 58909024 ####[facility] [address] [place] [address] Transferrinon 01-16-2024 Transferrin [Mass/Vol] 261 mg/dL Normal 200-370 [facility] Comment on above: Performed By: #### 2 224705, 1095644, 9569985, 7187072, 2198515, 4125853, 61575935 ####[address] [address] Vit B12on 01-16-2024 Cobalamin (Vitamin B12) [Mass/Vol] 420 pg/mL Normal 50-1500 [facility] Comment on above: Performed By: #### 2 828478, 8971725, 2629231, 4372710, 6513918, 0006200, 20141672 ####[address] [address] CBC w/ Auto Diffon 4 Basophils/100 WBC (Bld) 0.6 % Normal 0.0-2.0 [facility] Comment on above: Performed By: #### 2 226463, 1296278, 9079915, 35717139 ####[facility] [address] [place] [address] Basophils/Leukocytes Auto (Bld) [Pure # fraction] 0.0 E9/L Normal 0.0-0.2 [facility] Comment on above: Performed By: #### 2 189743, 2537867, 0930177, 62764785 ####[place] [address] [place] [address] Eosinophils (Bld) [#/Vol] 0.2 E9/L Normal 0.0-0.5 [facility] Comment on above: Performed By: #### 2 909506, 1407785, 9607188, 69593784 ####[address] [address] Eosinophils/100 WBC (Bld) 3.0 % Normal 0.0-8.0 [facility] Comment on above: Performed By: #### 2 708069, 6888298, 1666105, 50461282 ####[address] [address] Erythrocyte distribution width (RBC) [Ratio] 15.7 % High 10.9-14.2 [facility] Comment on above: Performed By: #### 2 393150, 3800305, 2919663, 36356781 ####[address] [address] Hematocrit (Bld) [Volume fraction] 36.9 % Normal 34.0-46.0 [facility] Comment on above: Performed By: #### 2 960289, 4014271, 9956791, 28374553 ####[address] [address] Hemoglobin (Bld) [Mass/Vol] 12.4 g/dL Normal 12.0-16.0 [facility] Comment on above: Performed By: #### 2 559301, 8984400, 7487257, 56937143 ####[address] [address] Lymphocytes (Bld) [#/Vol] 1.4 E9/L Normal 1.0-4.0 [facility] Comment on above: Performed By: #### 2 382847, 8562192, 4086867, 27032017 ####[address] [address] Lymphocytes/100 WBC (Bld) 20.7 % Normal 14.0-50.0 [facility] Comment on above: Performed By: #### 2 915108, 1163126, 7401566, 01621726 ####[place] [address] [place] [address] MCH (RBC) [Entitic mass] 29.5 pg Normal 27.0-34.0 [facility] Comment on above: Performed By: #### 2 567655, 3638807, 8227860, 05851892 ####[address] [address] MCHC (RBC) [Mass/Vol] 33.6 g/dL Normal 31.4-36.0 [facility] Comment on above: Performed By: #### 2 418247, 7458673, 1241485, 94220062 ####[place] [address] MCV (RBC) [Entitic vol] 87.9 fL Normal 80.0-100.0 [facility] Comment on above: Performed By: #### 2 404424, 4771978, 3764630, 64034375 ####[address] [address] Monocytes (Bld) [#/Vol] 0.6 E9/L Normal 0.2-1.0 [facility] Comment on above: Performed By: #### 2 033424, 9446696, 1945845, 99791442 ####[address] [address] Neutrophils (Bld) [#/Vol] 4.5 E9/L Normal 2.0-7.5 [facility] Comment on above: Performed By: #### 2 480139, 3743887, 8455851, 60847851 ####[address] [address] Neutrophils/100 WBC (Bld) 66.7 % Normal 36.0-75.0 [facility] Comment on above: Performed By: #### 2 479266, 0028318, 3383075, 34150529 ####[address] [address] Platelet mean volume (Bld) [Entitic vol] 10.3 fL Normal 6.4-10.8 [facility] Comment on above: Performed By: #### 2 865678, 9754000, 6681767, 55505401 ####[facility] [address] [place] [address] Platelets (Bld) [#/Vol] 196.0 E9/L Normal 150.0-500.0 [facility] Comment on above: Performed By: #### 2 135625, 9112497, 5307691, 74811710 ####[facility] [address] [place] [address] RBC (Bld) [#/Vol] 4.2 E12/L Low 4.3-5.9 [facility] Comment on above: Performed By: #### 2 855256, 7819750, 9440210, 06850327 ####[facility] [address] [place] [address] WBC corrected for nucl RBC Auto (Bld) [#/Vol] 6.8 E9/L Normal 4.0-11.0 [facility] Comment on above: Performed By: #### 2 559005, 7082591, 2305366, 96384808 ####[facility] [address] [place] [address] CHEMISTRYOrdered By: SYSTEM SYSTEM on 01-09-2024 Albumin [...] 01-09-2024 Albumin [Mass/Vol] 4.1 g/dL Normal 3.3-5.0 [facility] Comment on above: Performed By: #### 2 702425, 3789126, 4073983, 79071935 ####[facility] [address] [place] [address] Albumin/Globulin (S) [Mass conc ratio] 1.2 Normal 1.1-2.2 [facility] Comment on above: Performed By: #### 2 316314, 9687705, 3813535, 72500592 ####[facility] [address] [place] [address] ALP [Catalytic activity/Vol] 61 Int._Unit/L Normal 21-98 [facility] Comment on above: Performed By: #### 2 749724, 4303159, 3305654, 80628943 ####[facility] [address] [place] [address] ALT No additional P-5'-P [Catalytic activity/Vol] 17 Int._Unit/L Normal 6-46 [facility] Comment on above: Performed By: #### 2 083862, 1931370, 4086384, 62894987 ####[facility] [address] [place] [address] Anion gap [Moles/Vol] 12 mmol/L Normal 6-16 [facility] Comment on above: Performed By: #### 2 612685, 2667015, 5463933, 76577095 ####[address] [address] AST [Catalytic activity/Vol] 18 Int._Unit/L Normal 5-43 [facility] Comment on above: Performed By: #### 2 621040, 0503705, 9471202, 93678086 ####[place] [place] [address] Bilirubin [Mass/Vol] 0.4 mg/dL Normal 0.0-1.1 [facility] Comment on above: Performed By: #### 2 454576, 2400416, 0391373, 11988225 ####[place] [address] [place] [address] Calcium [Mass/Vol] 9.8 mg/dL Normal 8.9-11.1 [facility] Comment on above: Performed By: #### 2 654721, 6018053, 8156370, 39176281 ####[place] [place] [address] Chloride [Moles/Vol] 101 mmol/L Normal 101-111 [facility] Comment on above: Performed By: #### 2 183817, 0642254, 6006920, 22827885 ####[facility] [address] [place] [address] CO2 [Moles/Vol] 28 mmol/L Normal 21-31 [facility] Comment on above: Performed By: #### 2 785768, 7348961, 0167742, 34649844 ####[facility] [address] [place] [address] Creatinine [Mass/Vol] 1.0 mg/dL Normal 0.5-1.3 [facility] Comment on above: Performed By: #### 2 378514, 4102832, 5895550, 88802069 ####[facility] [address] [place] [address] Globulin (S) [Mass/Vol] 3.4 g/dL Normal 1.4-4.0 [facility] Comment on above: Performed By: #### 2 486160, 2095457, 0034220, 98449111 ####[facility] [address] [place] [address] Glucose [Mass/Vol] 98 mg/dL Normal 55-199 [facility] Comment on above: Performed By: #### 2 329426, 7482438, 0070377, 75932039 ####[facility] [address] [place] [address] Potassium [Moles/Vol] 4.3 mmol/L Normal 3.5-5.3 [facility] Comment on above: Performed By: #### 2 245947, 5411209, 8237981, 98090779 ####[facility] [address] [place] [address] Protein [Mass/Vol] 7.5 g/dL Normal 6.0-7.8 [facility] Comment on above: Performed By: #### 2 879124, 7993289, 2074417, 30547189 ####[facility] [address] [place] [address] Sodium [Moles/Vol] 137 mmol/L Normal 135-145 [facility] Comment on above: Performed By: #### 2 696005, 6864831, 5741781, 54944382 ####[facility] [address] [place] [address] Urea nitrogen [Mass/Vol] 21 mg/dL Normal 5-21 [facility] Comment on above: Performed By: #### 2 864784, 7206851, 9447909, 01745758 ####[facility] [address] [place] [address] Urea nitrogen/Creatinine [Mass ratio] 21 No Units High 10-20 [facility] Comment on above: Performed By: #### 2 377251, 8476065, 8623239, 06114997 ####[facility] [address] [place] [address] COAGULATIONOrdered By: Catina Miles on 01-09-2024 Fibrin D-dimer FEU (PPP) [Mass/Vol] 404 ng/mL FEU Normal 215 - 500 ng/mL FEU [facility] Comment on above: Interpretive Data: [...] Treatmenton 12-29 Consent for Treatment [id number]#1 .00TIFF Normal [facility] D-Dimeron 01-09-2024 Fibrin D-dimer FEU (PPP) [Mass/Vol] 404 [id number] Normal 215-500 [facility] Comment on above: Result Comment: This [...] infections Liver cirrhosis Performed By: #### 2 701206, 1092374, 8733164, 26657267 ####[facility] [address] [place] [id number] HEMATOLOGYOrdered By: SYSTEM SYSTEM on 01-09-2024 Basophils/100 [...] 01-09-2024 eGFR 65 mL/min/1.73 m2 Normal >=59 [facility] Comment on above: Order Comment: Order added by Discern Expert. Performed By: #### 2 286993, 1526494, 5808167, 98359668 ####[facility] [address] [place] [address] CT Abdomen/Pelvis w/ Contras ton 11-24-2023 CT [...] Vincenzo Colvin DO Transcribed by: NOHEMY Technologist: [facility] Report IMPRESSION: NO ACUTE ABDOMINOPELVIC PROCESS. [...] 11/24/2023 14:25 EST by Vincenzo Colvin DO [facility] Prescriptions/Work Noteson 1 12-14-2022 Prescriptions/Work Notes [id number]# 1.00TIFF Normal [facility] Discharge Instructionson Discharge Instructions [id number]# 1.00TIFF [facility] Monitor Recordon 09-26-2023 Monitor Record [id number]# 1.00TIFF Normal [facility] UA With Cult Reflexon 2022 Bilirubin Ql (U) Negative Normal Negative [facility] Comment on above: Performed By: #### 1 5516774 ####[facility] [address] [place] [address] Clarity (U) CLEAR Normal Clear [facility] Comment on above: Performed By: #### 1 9940328 ####[place] [address] [place] [address] Color (U) YELLOW Normal Yellow [facility] Comment on above: Performed By: #### 1 6623173 ####[address] [address] Epithelial cells.squamous LM.HPF (Urine sed) [#/Area] 0-2 Normal 0-2 [facility] Comment on above: Performed By: #### 1 3349376 ####[address] [address] Glucose Test strip (U) [Mass/Vol] Negative Normal Negative [facility] Comment on above: Performed By: #### 1 4392608 ####[address] [address] Hemoglobin Ql (U) Negative Normal Negative [facility] Comment on above: Performed By: #### 1 2877969 ####[address] [address] Ketones (U) [Mass/Vol] Negative Normal Negative [facility] Comment on above: Performed By: #### 1 1462654 ####[address] [address] Norrie.plasma/Norrie .RBC (Bld) [Mass ratio] 0-3 Normal 0-3 [facility] Comment on above: Performed By: #### 1 2581973 ####[address] [address] Nitrite Ql (U) Negative Normal Negative [facility] Comment on above: Performed By: #### 1 0400014 ####[address] [address] pH (U) 6.5 [pH] Invalid Interpretation Code 5.0-9.0 [facility] Comment on above: Performed By: #### 1 1741797 ####[address] [address] Protein (U) [Mass/Vol] Negative Normal Negative [facility] Comment on above: Performed By: #### 1 3454928 ####[address] [address] Specific gravity (U) [Rel density] <=1.005 Invalid Interpretation Code 1.005-1.030 [facility] Comment on above: Performed By: #### 1 3362675 ####[facility] [address] [place] [address] Type of Urine collection method Clean Catch Normal [facility] Comment on above: Performed By: #### 1 6298087 ####[address] [address] Urobilinogen Qn (U) 0.2 {Nayla'U}/dL Normal 0.0-1.0 [facility] Comment on above: Performed By: #### 1 3781606 ####[address] [address] WBC Auto Ql (U) Negative Normal Negative [facility] Comment on above: Performed By: #### 1 1447735 ####[address] [address] WBC LM.HPF (Urine sed) [#/Area] 0-5 Normal 0-5 [facility] Comment on above: Performed By: #### 1 2612372 ####[address] [address] Auto Diffon 09-25-2023 Basophils/100 WBC (Bld) 0.6 % Normal 0.0-2.0 [facility] Comment on above: Order Comment: Order Added by Discern Expert. Performed By: #### 2 556042, 3637952, 0733452, 4288017, 1655957, 13481972 ####[address] [address] Basophils/Leukocytes Auto (Bld) [Pure # fraction] 0.1 E9/L Normal 0.0-0.2 [facility] Comment on above: Order Comment: Order Added by Discern Expert. Performed By: #### 2 961221, 6337686, 2360288, 1583817, 4243098, 57782586 ####[facility] [address] [place] [address] Eosinophils/100 WBC (Bld) 1.5 % Normal 0.0-8.0 [facility] Comment on above: Order Comment: Order Added by Discern Expert. Performed By: #### 2 448643, 1776273, 3711060, 5374306, 6717903, 77643694 ####[place] [address] [place] [address] Eosinophils/Leukocytes Auto (Bld) [Pure # fraction] 0.1 E9/L Normal 0.0-0.5 [facility] Comment on above: Order Comment: Order Added by Discern Expert. Performed By: #### 2 417866, 5485548, 2652569, 0692258, 3425066, 89695850 ####[place] [address] [place] [address] Lymphocytes/100 WBC (Bld) 15.3 % Normal 14.0-50.0 [facility] Comment on above: Order Comment: Order Added by Discern Expert. Performed By: #### 2 467975, 7429900, 2151858, 8109876, 7939007, 33023949 ####[address] [address] Lymphocytes/Leukocytes Auto (Bld) [Pure # fraction] 1.5 E9/L Normal 1.0-4.0 [facility] Comment on above: Order Comment: Order Added by [place] Expert. Performed By: #### 2 640718, 4455151, 0171700, 0341606, 4858489, 68454883 ####[place] [address] [place] [address] Monocytes/100 WBC (Bld) 7.4 % Normal 4.0-14.0 [facility] Comment on above: Order Comment: Order Added by Discern Expert. Performed By: #### 2 519683, 6491728, 7464383, 2172186, 2086479, 50927934 ####[address] [address] Monocytes/Leukocytes Auto (Bld) [Pure # fraction] 0.7 E9/L Normal 0.2-1.0 [facility] Comment on above: Order Comment: Order Added by Discern Expert. Performed By: #### 2 471144, 2838780, 3969631, 4726162, 5108030, 32127919 ####[facility] [address] [place] [address] Neutrophils/100 WBC (Bld) 75.2 % High 36.0-75.0 [facility] Comment on above: Order Comment: Order Added by Discern Expert. Performed By: #### 2 326383, 4393925, 1660646, 2010156, 8901824, 61348403 ####[facility] [address] [place] [address] Neutrophils/Leukocytes Auto (Bld) [Pure # fraction] 7.1 E9/L Normal 2.0-7.5 [facility] Comment on above: Order Comment: Order Added by Discern Expert. Performed By: #### 2 039127, 2253980, 2640348, 1416503, 3787213, 41822552 ####[facility] [address] [place] [address] BMPon 09-25-2023 Creatinine [Mass/Vol] 0.9 mg/dL Normal 0.5-1.3 [facility] Comment on above: Performed By: #### 2 599932, 0971673, 3350568, 8141926, 9181373, 93097442 ####[facility] [address] [place] [address] Urea nitrogen [Mass/Vol] 20 mg/dL Normal 5-21 [facility] Comment on above: Performed By: #### 2 859229, 6198512, 5919310, 5812070, 5047802, 08328184 ####[facility] [address] [place] [address] Urea nitrogen/Creatinine [Mass ratio] 22 No Units High 10-20 [facility] Comment on above: Performed By: #### 2 428711, 0507835, 1936844, 5695872, 2865547, 50267800 ####[facility] [address] [place] [address] Anion gap [Moles/Vol] 10 mmol/L Normal 6-16 [facility] Comment on above: Performed By: #### 2 487016, 3275529, 2848175, 8766126, 3258813, 30090360 ####[facility] [address] [place] [address] Calcium [Mass/Vol] 10.4 mg/dL Normal 8.9-11.1 [facility] Comment on above: Performed By: #### 2 693419, 8222199, 5317133, 4135325, 0357769, 68047903 ####[facility] [address] [place] [address] Chloride [Moles/Vol] 101 mmol/L Normal 101-111 [facility] Comment on above: Performed By: #### 2 007157, 6720418, 8298589, 6511081, 1074628, 64519974 ####[facility] [address] [place] [address] CO2 [Moles/Vol] 27 mmol/L Normal 21-31 [facility] Comment on above: Performed By: #### 2 748141, 1631582, 9192561, 7985549, 0900562, 21363070 ####[facility] [address] [place] [address] Glucose [Mass/Vol] 155 mg/dL Normal 55-199 [facility] Comment on above: Result Comment: If t his glucose result represents a fasting glucose, interpretation should refer to the following reference range: 55-99 mg/dL Performed By: #### 2 161713, 5037804, 3081001, 8417478, 4332190, 26891901 ####[facility] [address] [place] [place] [address] Potassium [Moles/Vol] 4.0 mmol/L Normal 3.5-5.3 [facility] Comment on above: Performed By: #### 2 352074, 5469203, 4833643, 1429725, 1206002, 06703610 ####[facility] [address] [place] [address] Sodium [Moles/Vol] 134 mmol/L Low 135-145 [facility] Comment on above: Performed By: #### 2 864926, 1211618, 0367062, 1465396, 3653834, 00936939 ####[facility] [address] [place] [address] CBC w/ Auto Diffon Erythrocyte distribution width (RBC) [Ratio] 15.3 % High 10.9-14.2 [facility] Comment on above: Performed By: #### 2 385201, 0566659, 7911609, 0766366, 5336515, 41271102 ####[address] [place] [address] Hematocrit (Bld) [Volume fraction] 38.4 % Normal 34.0-46.0 [facility] Comment on above: Performed By: #### 2 210680, 7333532, 6231646, 2991912, 2110639, 32637608 ####[facility] [address] [place] [address] Hemoglobin (Bld) [Mass/Vol] 13.0 g/dL Normal 12.0-16.0 [facility] Comment on above: Performed By: #### 2 163753, 6918205, 2167260, 5934143, 1080390, 76318945 ####[address] [address] MCH (RBC) [Entitic mass] 29.4 pg Normal 27.0-34.0 [facility] Comment on above: Performed By: #### 2 434115, 3336658, 9072782, 9861338, 3431680, 71878172 ####[facility] [address] [place] [address] MCHC (RBC) [Mass/Vol] 33.9 g/dL Normal 31.4-36.0 [facility] Comment on above: Performed By: #### 2 678865, 7498946, 6355549, 8527571, 5884201, 42603721 ####[address] [place] [address] MCV (RBC) [Entitic vol] 86.6 fL Normal 80.0-100.0 [facility] Comment on above: Performed By: #### 2 709663, 1983859, 0018418, 8270922, 1344487, 03688532 ####[address] [address] Platelet mean volume (Bld) [Entitic vol] 9.5 fL Normal 6.4-10.8 [facility] Comment on above: Performed By: #### 2 988719, 2891568, 7884455, 0120406, 2728316, 15060644 ####[address] [address] Platelets (Bld) [#/Vol] 207.0 E9/L Normal 150.0-500.0 [facility] Comment on above: Performed By: #### 2 325567, 0821230, 8218521, 7907234, 4087183, 06445757 ####[address] [address] RBC (Bld) [#/Vol] 4.4 E12/L Normal 4.3-5.9 [facility] Comment on above: Performed By: #### 2 733718, 1730231, 2151384, 0292674, 6154166, 12686509 ####[address] [address] WBC corrected for nucl RBC Auto (Bld) [#/Vol] 9.5 E9/L Normal 4.0-11.0 [facility] Comment on above: Performed By: #### 2 562716, 9194028, 5208053, 6236497, 9170423, 68097719 ####[address] [address] CHEMISTRYOrdered By: SYSTEM SYSTEM on 09-25-2023 Albumin [...] 74 mL/min/1.73 m2 Normal >=59mL/min/1 .73 m2 [facility] S Comment on above: Interpretive Data: [...] mg/mg High 10 - 20 FT Remisol Consent for Treatmenton 09-01 Consent for Treatment [id number] .00TIFF Normal [facility] ED Clinical Summaryon 2022 ED Clinical Summary [place] [address] ED Clinical Summary Person Information Name: ALIYA MOORE [facility] Age: 57 Years : 1965 Sex: Female Language: Yi PCP: BREA JJ CNP Marital Status: Visit [...] 09/25/2023 21:57:44 09/25/2023 21:57:44 09/25/2023 21:57:44 ADDRESS: [address] [place] [address] [address] [facility] [phone] PHYS DOC NOTES: MEDICAL INFORMATION: Prescriptions Given: [facility], [address], [place] [id number], [phone] dicyclomine (Bentyl 10 mg Cap) 1 Capsules [...] day. fluticasone nasal (fluticasone Nasal 0.05 mg/inh [place]) 2 Sprays Nasal Inhalation every day. each [...] Mouth every day. potassium chloride (Potassium Chloride (Ohh-Czax-Xze 10) 10 mEq oral tablet, extended release) pramipexole (pramipexole 0.5 mg oral tablet) 1 Tablets By Mouth 3 times a day. theophylline (theophylline 300 mg ER Tab) 1 Tablets By Mouth every 12 hours. trazodone (traZODONE 50 mg Tab) 1 Tablets By Mouth once a day (at bedtime). PATIENT EDUCATION INFORMATION: Instructions: Cholelithiasis Follow up: With: Address: When: [facility] [address] [facility] 3, 2nd Floor, [address] [place] [phone] Business (1) In 3 days 09/28/2023 With: Address: When: BREA JJ [address], [place] [phone] Business (1) In 3 days DIAGNOSIS: AP (abdominal pain); Cholelithiasis; N&V (nausea and vomiting) Normal [facility] ED Note-Physicianon 09-25-20 ED Note-Physician Basic [...] and Complexity of Problems Differential Diagnosis: [] [facility] Data External documents reviewed: N/A My [...] day(s), # 28 cap(s), Refills(s) 0, Pharmacy: [facility], 175, cm, 09/25/23 18:25:00 EST, [...] q8hr, # 12 tab(s), Refills(s) 0, Pharmacy: [facility] 1155, 175, cm, 09/25/23 18:25:00 EST, [...] Trauma Clinic In 3 days 09/28/[address] [place] [address] 3, 2nd Floor, [address] [place] [phone] Business (1) Additional Instructions: BREA АННА In [address] [place] [address] [phone] Business (1) Additional Instructions: Patient Education Cholelithiasis Problem List/Past Medical History Ongoing Smoker Historical No qualifying data Procedure/Surgical History delivery (05/05/1987), delivery (06/20/1984), Cyst, Knee. Medications Inpatient morphine 4 mg/mL Inj, 4 mg= 1 mL, IV Push, Once Zofran 4 mg/2 mL Injection, 4 mg= 2 mL, IV Push, Once Home albuterol- (more content not included)... Normal [facility] Comment on above: Result Comment: Elec [...] to break (more content not included)... Normal [facility] ED Patient Summaryon 023 ED Patient Summary [place] [id number] Patient Discharge Instructions Person Information Name: ALIYA MOORE Age: 57 Years Arrival Date: 09/25/2023 18:09:44 Discharge Diagnosis: AP (abdominal pain); Cholelithiasis; N&V (nausea and vomiting) Primary Care Physician: BREA JJ CNP Provider Information Primary Provider: Moses Fischer DO Advanced Legger Press Operator:None The exam and treatment you received in the Emergency Department were for an urgent problem and are not intended as complete care. It is important that you follow up with a doctor, nurse practitioner, or physician?s teachers assistant for ongoing care. If your symptoms become worse or you do not improve as expected and you are unable to reach your usual health care provider, you should return to the Emergency Department. We are available 24 hours a day. MOORE, ALIYA J has been given the following list of patient education materials, prescriptions and follow-up instructions: Follow-up Instructions: With: Address: When[facility] [address] [facility], [address] [place] [phone] Business (1) In 3 days 09/28/2023 With: Address: When: BREA JJ [address] [place], [place] [address] [phone] Business (1) In 3 days In the event that this physician does not participate in your insurance network, please consult with your insurance company to find a nearby participating provider. Patient Education Materials: Cholelithiasis A MESSAGE TO ALL PATIENTS REGARDING OPIOIDS PRESCRIPTION OPIOIDS: WHAT YOU NEED TO KNOW Prescription opioids can be used to help relieve wlksnhtk-oq-bjrcio pain and are often prescribed following a [...] and overdos (more content not included)... Normal [facility] HEMATOLOGYOrdered By: SYSTEM SYSTEM on 09-25-2023 [...] 09-25-2023 Albumin [Mass/Vol] 3.9 g/dL Normal 3.3-5.0 [facility] Comment on above: Performed By: #### 2 250962, 7363262, 5132895, 1914654, 4894203, 25819023 ####[address] [place] [address] Albumin/Globulin (S) [Mass conc ratio] 1.0 Low 1.1-2.2 [facility] Comment on above: Performed By: #### 2 367186, 0431262, 1784790, 3777924, 4563573, 79370004 ####[address] [address] ALP [Catalytic activity/Vol] 66 Int._Unit/L Normal 21-98 [facility] Comment on above: Performed By: #### 2 806925, 1450421, 4905161, 0025642, 6050744, 12638179 ####[address] [address] ALT No additional P-5'-P [Catalytic activity/Vol] 25 Int._Unit/L Normal 6-46 [facility] Comment on above: Performed By: #### 2 308539, 9137923, 3909951, 0227534, 3847956, 84945777 ####[address] [address] AST [Catalytic activity/Vol] 25 Int._Unit/L Normal 5-43 [facility] Comment on above: Performed By: #### 2 362818, 7655500, 9933712, 0233960, 7572158, 47739927 ####[facility] [address] [place] [address] Bilirubin [Mass/Vol] 0.2 mg/dL Normal 0.0-1.1 [facility] Comment on above: Performed By: #### 2 099191, 6379453, 4696039, 6479038, 9240127, 68709023 ####[facility] [address] [place] [address] Bilirubin.direct [Mass/Vol] 0.1 mg/dL Normal 0.1-0.4 [facility] Comment on above: Performed By: #### 2 297510, 1278416, 6023974, 5532415, 4897257, 08506253 ####[facility] [address] [place] [address] Bilirubin.indirect [Mass or moles/Vol] 0.1 mg/dL Normal 0.1-0.9 [facility] Comment on above: Performed By: #### 2 719624, 3612518, 9383702, 3146675, 5599507, 25057987 ####[address] [place] [address] Globulin (S) [Mass/Vol] 4.0 g/dL Normal 1.4-4.0 [facility] Comment on above: Performed By: #### 2 311645, 0840350, 6825711, 8732610, 2243997, 14276911 ####[address] [address] Protein [Mass/Vol] 7.9 g/dL High 6.0-7.8 [facility] Comment on above: Performed By: #### 2 266265, 4978423, 5301668, 1669926, 1826739, 23097964 ####[address] [address] Lipase Levelon 09-25-2023 Lipase [Catalytic activity/Vol] 39 U/L Normal 13-58 [facility] Comment on above: Performed By: #### 2 665563, 8122999, 2037310, 9017628, 3838318, 75608716 ####[address] [place] [address] RAD - Preliminary Cat Scan R eporton 09-25-2023 RAD - Preliminary Cat Scan Report [id number]# 1.00TIFF Normal [facility] URINALYSISOrdered By: Tanya Nathan on 09-25-2023 [...] PM) Normal Negative [facility] UA Auto SS Norrie.plasma/Norrie .RBC (Bld) [Mass ratio] 0-3 /HPF Normal [...] Desc Clean Catch (09/25/23 9:53 PM) Normal [facility] UA Auto SS Urobilinogen Qn (U) 0.6896482 {Nayla'U}/dL Normal 0.0 - 1.0 EU/dL [facility] UA Auto SS WBC Auto Ql (U) Negative (09/25/23 9:53 PM) Normal Negative [facility] UA Auto SS WBC LM.HPF (Urine sed) [#/Area] 0-5 /HPF Normal 0-5/HPF [facility] UA Auto SS eGFRon 09-25-2023 GFR/1.73 sq M.predicted among non-blacks MDRD (S/P/Bld) [Vol rate/Area] 74 mL/min/1.73 m2 Normal >=59 [facility] Comment on above: Order Comment: Order added by Discern Expert. Result Comment: Boiler Reliner nita kidney disease could be indicated at eGFR's of less than 60 mL/min/1.73m2. Kidney failure is indicated at less than 15 mL/min/1.73m2. Performed By: #### 2 252247, 5608240, 2099561, 0694229, 6810077, 47098391 ####[facility] [address] [place] [address] 36on 09-08-2023 36 Approving, but needs appt for additional refills. Normal [facility] Auto Diffon 09-08-2023 Basophils/100 WBC (Bld) 0.2 % Normal 0.0-2.0 [facility] Comment on above: Order Comment: Order Added by Discern Expert. Performed By: #### 2 479446, 2176960, 7602548, 00476145, 6312276, 07875188, 21035132, 25162964 ####[facility] [address] [place] [address] Basophils/Leukocytes Auto (Bld) [Pure # fraction] 0.0 E9/L Normal 0.0-0.2 [facility] Comment on above: Order Comment: Order Added by Discern Expert. Performed By: #### 2 734022, 0394790, 1447943, 81948104, 1212313, 22439556, 95197644, 16875267 ####[facility] [address] [place] [address] Eosinophils/100 WBC (Bld) 0.8 % Normal 0.0-8.0 [facility] Comment on above: Order Comment: Order Added by Discern Expert. Performed By: #### 2 334297, 2716708, 9914485, 97868362, 1225248, 08222063, 31770924, 63898914 ####[facility] [address] [place] [address] Eosinophils/Leukocytes Auto (Bld) [Pure # fraction] 0.1 E9/L Normal 0.0-0.5 [facility] Comment on above: Order Comment: Order Added by Discern Expert. Performed By: #### 2 851686, 6571038, 6755769, 00842602, 7805760, 64966019, 78510422, 03134277 ####[address] [place] [address] Lymphocytes/100 WBC (Bld) 11.3 % Low 14.0-50.0 [facility] Comment on above: Order Comment: Order Added by Discern Expert. Performed By: #### 2 873665, 8195301, 2234020, 09490896, 5688151, 62679675, 45093716, 52564166 ####[address] [place] [address] Lymphocytes/Leukocytes Auto (Bld) [Pure # fraction] 1.0 E9/L Normal 1.0-4.0 [facility] Comment on above: Order Comment: Order Added by Quinton Expert. Performed By: #### 2 511865, 6348462, 6651970, 55494011, 7694401, 49664713, 06994182, 92235182 ####[address] [place] [address] Monocytes/100 WBC (Bld) 6.9 % Normal 4.0-14.0 [facility] Comment on above: Order Comment: Order Added by Quinton Expert. Performed By: #### 2 229821, 1784621, 6211677, 44095184, 5876336, 35578634, 04286658, 49622368 ####[address] [place] [address] Monocytes/Leukocytes Auto (Bld) [Pure # fraction] 0.6 E9/L Normal 0.2-1.0 [facility] Comment on above: Order Comment: Order Added by Quinton Expert. Performed By: #### 2 322597, 4579870, 7975129, 30027199, 1526162, 84861623, 76527445, 31810655 ####[address] [place] [address] Neutrophils/100 WBC (Bld) 80.8 % High 36.0-75.0 [facility] Comment on above: Order Comment: Order Added by Discern Expert. Performed By: #### 2 131122, 5954645, 7355476, 56192908, 5551271, 14143853, 92061040, 94466133 ####[facility] [address] [place] [address] Neutrophils/Leukocytes Auto (Bld) [Pure # fraction] 7.1 E9/L Normal 2.0-7.5 [facility] Comment on above: Order Comment: Order Added by Discern Expert. Performed By: #### 2 390157, 8185115, 7128694, 88013651, 3732671, 35700628, 08576398, 45545443 ####[facility] [address] [place] [address] BMPon 09-08-2023 Creatinine [Mass/Vol] 1.2 mg/dL Normal 0.5-1.3 [facility] Comment on above: Performed By: #### 2 736752, 7962185, 6101431, 10530072, 4050978, 45830977, 12724080, 06772754 ####[facility] [address] [place] [address] Urea nitrogen [Mass/Vol] 26 mg/dL High 5-21 [facility] Comment on above: Performed By: #### 2 656446, 4094629, 6214522, 43751769, 7709148, 10267558, 82355607, 05226212 ####[facility] [address] [place] [address] Urea nitrogen/Creatinine [Mass ratio] 22 No Units High 10-20 [facility] Comment on above: Performed By: #### 2 142161, 9460577, 0488291, 39711462, 5358751, 03453303, 99175673, 10350876 ####[facility] [address] [place] [address] Anion gap [Moles/Vol] 13 mmol/L Normal 6-16 [facility] Comment on above: Performed By: #### 2 257797, 2508719, 0156682, 12823529, 3048756, 90051527, 49914105, 32384413 ####[facility] [address] [place] [address] Calcium [Mass/Vol] 9.9 mg/dL Normal 8.9-11.1 [facility] Comment on above: Performed By: #### 2 266318, 8839656, 7247715, 33738684, 3955327, 37953349, 33886387, 30545299 ####[facility] [address] [place] [address] Chloride [Moles/Vol] 99 mmol/L Low 101-111 [facility] Comment on above: Performed By: #### 2 259609, 6323495, 0090704, 28641132, 1050772, 56781372, 53642343, 95700002 ####[facility] [address] [place] [address] CO2 [Moles/Vol] 28 mmol/L Normal 21-31 [facility] Comment on above: Performed By: #### 2 903386, 0453703, 0963076, 84143725, 0027230, 60477668, 39263113, 07376755 ####[facility] [address] [place] [address] Glucose [Mass/Vol] 126 mg/dL Normal 55-199 [facility] Comment on above: Result Comment: If t his glucose result represents a fasting glucose, interpretation should refer to the following reference range: 55-99 mg/dL Performed By: #### 2 563203, 1848044, 4863753, 60460181, 3565153, 01904989, 86816585, 06080447 ####[facility] [address] [place] [address] Potassium [Moles/Vol] 4.0 mmol/L Normal 3.5-5.3 [facility] Comment on above: Performed By: #### 2 019455, 4073792, 2635873, 45984077, 7190937, 40155257, 89413283, 64695618 ####[facility] [address] [place] [address] Sodium [Moles/Vol] 136 mmol/L Normal 135-145 [facility] Comment on above: Performed By: #### 2 058633, 4360296, 0195044, 80326232, 6955570, 90192270, 44277704, 40125571 ####[facility] [address] [place] [address] BNPon 09-08-2023 Int Ctr BNP Pass Normal [facility] Comment on above: Performed By: #### 2 351920, 9513892, 9652608, 23419728, 4777007, 58632873, 71182443, 63814852 ####[address] [place] [address] Natriuretic peptide B (Bld) [Mass/Vol] 21 pg/mL Normal 5-80 [facility] Comment on above: Performed By: #### 2 347829, 9651138, 8050905, 91419259, 4088565, 25997341, 75117862, 23330086 ####[address] [place] [address] CBC w/ Auto Diffon 3 Erythrocyte distribution width (RBC) [Ratio] 15.1 % High 10.9-14.2 [facility] Comment on above: Performed By: #### 2 665279, 9257953, 0106484, 72824119, 0456465, 67604440, 62689066, 26182227 ####[address] [place] [address] Hematocrit (Bld) [Volume fraction] 38.8 % Normal 34.0-46.0 [facility] Comment on above: Performed By: #### 2 747641, 1192913, 4881650, 12361921, 5805195, 34887261, 61931675, 94286849 ####[address] [place] [address] Hemoglobin (Bld) [Mass/Vol] 13.0 g/dL Normal 12.0-16.0 [facility] Comment on above: Performed By: #### 2 614883, 5124765, 5479180, 49938875, 0173511, 31683185, 27896245, 47479114 ####[address] [address] MCH (RBC) [Entitic mass] 29.4 pg Normal 27.0-34.0 [facility] Comment on above: Performed By: #### 2 372807, 7304683, 7010332, 42184683, 2996972, 71954332, 08786695, 93059064 ####[address] [address] MCHC (RBC) [Mass/Vol] 33.5 g/dL Normal 31.4-36.0 [facility] Comment on above: Performed By: #### 2 858172, 2968716, 7144148, 61810904, 0632130, 00219990, 73189294, 73718669 ####[address] [address] MCV (RBC) [Entitic vol] 87.6 fL Normal 80.0-100.0 [facility] Comment on above: Performed By: #### 2 158042, 1468785, 9208411, 98642223, 4107947, 39064594, 68970086, 98737963 ####[address] [place] [address] Platelet mean volume (Bld) [Entitic vol] 10.7 fL Normal 6.4-10.8 [facility] Comment on above: Performed By: #### 2 194562, 4632927, 2185862, 98913118, 3183171, 08627025, 48206871, 93066847 ####[facility] [address] [place] [address] Platelets (Bld) [#/Vol] 195.0 E9/L Normal 150.0-500.0 [facility] Comment on above: Performed By: #### 2 171307, 2069491, 9283829, 90261710, 9673909, 55675936, 61913608, 69657780 ####[facility] [address] [place] [address] RBC (Bld) [#/Vol] 4.4 E12/L Normal 4.3-5.9 [facility] Comment on above: Performed By: #### 2 083763, 2671715, 8703772, 88760507, 2770612, 66729026, 80011518, 37785607 ####[facility] [address] [place] [address] WBC corrected for nucl RBC Auto (Bld) [#/Vol] 8.8 E9/L Normal 4.0-11.0 [facility] Comment on above: Performed By: #### 2 190486, 7481186, 1145759, 32278461, 9426845, 78197612, 25234722, 07943443 ####[facility] [address] [place] [address] CHEMISTRYOrdered By: SYSTEM SYSTEM on 09-08-2023 Troponin [...] Sensitivity Troponin I Instructions For Use, Claude Muldraugh, May 2018) Albumin [Mass/Vol] 3.8 g/dL Normal [...] 52 mL/min/1.73 m2 Low >=59mL/min/1 .73 m2 [facility] Chem S Comment on above: Interpretive Data: [...] 4.70 pg/mL Low 10.10 - 27.10 pg/mL FT Remisol Comment on above: Interpretive Data: T he 95% CI (Confidence Interval) PPV (Positive Predictive Value) for myocardial infarction in females is 38 pg/mL, in males 51 pg/mL. The results should be used in conjunction with clinical conditions of myocardial infarction. (Access High Sensitivity Troponin I Instructions For Use, Claude Muldraugh, May 2018) Urea nitrogen [Mass/Vol] 26 mg/dL High 5 - 21 mg/dL FT Remisol Urea nitrogen/Creatinine [Mass ratio] 22 mg/mg High 10 - 20 [facility] Remisol CHEMISTRYOrdered By: Yanet Davis on 09-08-2023 Natriuretic peptide B (Bld) [Mass/Vol] 21 pg/mL Normal 5 - 80 pg/mL [facility] HemeManSS COAGULATIONOrdered By: Dov Patel on 09-08-2023 aPTT Coag (PPP) [Time] 37.3 s High 25.1 - 36.5 second(s) [facility] Auto Coag Comment on above: Interpretive Data: [...] the same coagulation reagent and instrumentation as [facility]. Currently there are no coagulation studies available worldwide for children to 14 days, and no normal ranges. Heparin therapeutic range (represented by Anti-Factor Xa activity of 0.2 - 0.4 U/mL) corresponds to PTT of 56.6 - 109.0 sec. INR Coag (PPP) [Relative time] 1.2 {INR} Invalid Interpretation Code [facility] Auto Coag Comment on above: Interpretive Data: I NR results are specifically intended to assess patients stabilized on long-term Anticoagulation therapy suggested INR s Less Intensive Anticoagulation 2.0 3.0 Conventional Range 3.0 4.5 PT Coag (PPP) [Time] 13.7 s High 9.4 - 1 2.5 second(s) [facility] Auto Coag Comment on above: Interpretive Data: [...] the same coagulation reagent and instrumentation as [facility]. Currently there are no coagulation studies available [...] 370 Contrast amount in ml's: 68 Normal [facility] Consent for Treatmenton Consent for Treatment [id number]# 1.00TIFF Normal [facility] Discharge Instructionson Discharge Instructions [id number]# 1.00TIFF Normal [facility] ED Clinical Summaryon 2022 ED Clinical Summary [place] [address] ED Clinical Summary Person Information Name: ALIYA MOORE [place] Age: 57 Years : 1965 Sex: Female Language: Yi PCP: BREA JJ CNP Marital Status: Visit [...] 09/08/2023 20:29:11 09/08/2023 20:29:11 09/08/2023 20:29:11 ADDRESS: [address] [place] [address] [address] [facility] [id number] PHYS DOC NOTES: MEDICAL INFORMATION: Prescriptions Given: [...] day. fluticasone nasal (fluticasone Nasal 0.05 mg/inh [place]) 2 Sprays Nasal Inhalation every day. each [...] Mouth every day. potassium chloride (Potassium Chloride (Pdy-Fbxr-Hhz 10) 10 mEq oral tablet, extended release) [...] With: Address: When: BREA JJ [address] [place], [place] [phone] Business (1) In 3 days DIAGNOSIS: Acute chest pain Normal [facility] ED Note-Physicianon 09-08-20 ED Note-Physician Patient [...] precautions. Patient was discharged stable condition. Normal [facility] Comment on above: Result Comment: Dorene rodriguezally Signed By: Moses Fischer DO\oriana\Date and Time Signed: 09/08/23 20:18 EST ED [...] History O (more content not included)... Normal [facility] Comment on above: Result Comment: Elec [...] these instructions at home: Medicines ? Take qyhp-oja-jflczdq and prescription medicines only as told by [...] by your (more content not included)... Normal [facility] ED Patient Summaryon 023 ED Patient Summary [place] [id number] Patient Discharge Instructions Person Information Name: ALIYA MOORE Age: 57 Years Arrival Date: 09/08/2023 16:32:21 Discharge Diagnosis: Acute chest pain Primary Care Physician: BREA JJ CNP Provider Information Primary Provider: Ramses Hair DO Advanced Legger Press Operator:None The exam and treatment you received in the Emergency Department were for an urgent problem and are not intended as complete care. It is important that you follow up with a doctor, nurse practitioner, or physician?s teachers assistant for ongoing care. If your symptoms [...] With: Address: When: BREA JJ [address], [place] [phone] Business (1) In 3 days In the event that this physician does not participate in your insurance network, please consult with your insurance company to find a nearby participating provider. Patient Education Materials: Nonspecific Chest Pain, Adult A MESSAGE TO ALL PATIENTS REGARDING OPIOIDS PRESCRIPTION OPIOIDS: WHAT YOU NEED TO KNOW Prescription opioids can be used to help relieve sswzzfbw-jk-zaveda pain and are often prescribed following a [...] be struggling with addiction, tell your health healthcare architect and ask for guidance or call [employer]?S National Helpline at 6-535-362-YKPW. v Source: [place] (more content not included)... Normal [facility] EMS Documentationon 09-08-20 EMS Documentation Please click on link to see report Normal [facility] Comment on above: Result Comment: Miss [...] 29.4 pg Normal 27.0 - 34.0 pg FT HemeAutoSS MCHC (RBC) [Mass/Vol] 33.5 g/dL Normal [...] 8.8 E9/L Normal 4.0 - 11.0 E9/L [facility] HemeAutoSS Hep Func Panelon 09-08-2023 Bilirubin.indirect [Mass or moles/Vol] UTC Abnormal 0.1-0.9 [facility] Comment on above: Result Comment: Resu lt verified by Discern Rule. Performed result UTC (Unable to Calculate) was sent as an Alpha code due the inability to calculate a valid numeric value. Performed By: #### 2 947644, 0716750, 5926172, 57848769, 5456329, 35143706, 70978612, 87791210 ####[facility] [address] [place] [address] Albumin [Mass/Vol] 3.8 g/dL Normal 3.3-5.0 [facility] Comment on above: Performed By: #### 2 799240, 8637404, 6014388, 92149799, 2505569, 59223491, 84710837, 35411860 ####[facility] [address] [place] [address] Albumin/Globulin (S) [Mass conc ratio] 0.8 Low 1.1-2.2 [facility] Comment on above: Performed By: #### 2 824134, 0395386, 5772060, 41585768, 2849939, 12499466, 78569571, 15145196 ####[facility] [address] [place] [address] ALP [Catalytic activity/Vol] 68 Int._Unit/L Normal 21-98 [facility] Comment on above: Performed By: #### 2 304780, 6254573, 3644214, 01864636, 4727817, 26952506, 17851380, 24038424 ####[address] [address] ALT No additional P-5'-P [Catalytic activity/Vol] 18 Int._Unit/L Normal 6-46 [facility] Comment on above: Performed By: #### 2 997513, 4876187, 7794490, 41692428, 3164635, 91189693, 19410882, 31389710 ####[address] [address] AST [Catalytic activity/Vol] 20 Int._Unit/L Normal 5-43 [facility] Comment on above: Performed By: #### 2 556525, 9676498, 9981816, 87162711, 3506777, 36156809, 76747306, 14990955 ####[address] [address] Bilirubin [Mass/Vol] 0.4 mg/dL Normal 0.0-1.1 [facility] Comment on above: Performed By: #### 2 504013, 8490251, 6441852, 62250839, 6760449, 26025619, 43678650, 77990988 ####[address] [place] [address] Globulin (S) [Mass/Vol] 4.5 g/dL High 1.4-4.0 [facility] Comment on above: Performed By: #### 2 465100, 7560409, 9162243, 41428486, 3277308, 03893877, 02130641, 42425219 ####[facility] [address] [place] [address] Protein [Mass/Vol] 8.3 g/dL High 6.0-7.8 [facility] Comment on above: Performed By: #### 2 546834, 2778708, 2582604, 48425392, 1793800, 97790231, 31396087, 42542889 ####[facility] [address] [place] [address] Bilirubin.direct [Mass/Vol] mg/dL Normal 0.1-0.4 [facility] Comment on above: Performed By: #### 2 383462, 3511115, 7435343, 66859897, 9019240, 68593820, 41864391, 61491176 ####[facility] [address] [place] [address] Monitor Recordon 09-08-2023 Monitor Record [id number]# 1.00TIFF Normal [facility] Monitor Record [id number]# 1.00TIFF Normal [facility] PT & PTTon 09-08-2023 aPTT Coag (PPP) [Time] 37.3 second(s) High 25.1-36.5 [facility] Comment on above: Result Comment: Para [...] the same coagulation reagent and instrumentation as [facility]. Currently there are no coagulation studies available worldwide for children to 14 days, and no normal ranges. Heparin therapeutic range (represented by Anti-Factor Xa activity of 0.2 - 0.4 U/mL) corresponds to PTT of 56.6 - 109.0 sec. Performed By: #### 2 444333, 5104013, 7481290, 70146285, 8435360, 55889624, 46427633, 75582931 ####[facility] [address] [place] [address] INR Coag (PPP) [Relative time] 1.2 {INR} Invalid Interpretation Code [facility] Comment on above: Result Comment: INR results are specifically intended to assess patients stabilized on long-term Anticoagulation therapy suggested INR?s ?Less Intensive Anticoagulation? 2.0 ? 3.0 Conventional Range 3.0 ? 4.5 Performed By: #### 2 106406, 5652064, 8692639, 93937598, 3239239, 39407667, 54871641, 30100021 ####[facility] [address] [place] [address] PT Coag (PPP) [Time] 13.7 second(s) High 9.4-12.5 [facility] Comment on above: Result Comment: 15 [...] the same coagulation reagent and instrumentation as [facility]. Currently there are no coagulation studies available worldwide for children to 14 days, and no normal ranges. Performed By: #### 2 738347, 8019815, 4029102, 99676724, 0936791, 26224587, 05814979, 76167090 ####[address] [place] [address] Troponin 0 Hr.on 09-08-2023 Troponin I.cardiac [Mass/Vol] 4.70 pg/mL Low 10.10-27.10 [facility] Comment on above: Result Comment: The 95% CI (Confidence Interval) PPV (Positive Predictive Value) for myocardial infarction in females is 38 pg/mL, in males 51 pg/mL. The results should be used in conjunction with clinical conditions of myocardial infarction. (Access High Sensitivity Troponin I Instructions For Use, Sverve, May 2018) Performed By: #### 2 127833, 2139883, 2434640, 31838020, 7618422, 69597857, 95600173, 23595461 ####[address] [address] Troponin 3 Hr.on 09-08-2023 Troponin I.cardiac [Mass/Vol] 4.20 pg/mL Low 10.10-27.10 [facility] Comment on above: Result Comment: The 95% CI (Confidence Interval) PPV (Positive Predictive Value) for myocardial infarction in females is 38 pg/mL, in males 51 pg/mL. The results should be used in conjunction with clinical conditions of myocardial infarction. (Access High Sensitivity Troponin I Instructions For Use, Sverve, May 2018) Performed By: #### 1 [id number] ####[address] [place] [address] eGFRon 09-08-2023 GFR/1.73 sq M.predicted among non-blacks MDRD (S/P/Bld) [Vol rate/Area] 52 mL/min/1.73 m2 Low >=59 [facility] Comment on above: Order Comment: Order added by Discern Expert. Result Comment: Boiler Reliner nita kidney disease could be indicated at eGFR's of less than 60 mL/min/1.73m2. Kidney failure is indicated at less than 15 mL/min/1.73m2. Performed By: #### 2 768222, 4961948, 0908977, 88713608, 7480028, 01323999, 04876781, 28790965 ####[address] [place] [address] Office Visiton 07-20-2023 Follow-up visit [id number] Aliya Moore 1965 F Date Provider Department Center 07/20/2023 Chey-MARLENE SOTO CARD Rodríguez [facility] Family History Problem Relation Age of Onset Coronary artery disease Other Pulmonary embolism Other Deep vein thrombosis Other Family Status - Relation Status Age at Other Level of Service:[address] SD OFFICE/OUTPATIENT ESTABLISHED LOW MDM 20-29 MIN Normal [facility] Consent for Treatmenton 07-01 Consent for Treatment [id number] .00CD:127 Normal [facility] Oncology Noteon 07-19-2023 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 Pt started in May. Normal [facility] Comment on above: Result Comment: Elec tronically Signed By: Tre CAZARES, Kristy\.br\Date and Time Signed: 07/19/23 11:12 EDT Oncology Progress Noteon Oncology Progress Note Patient: ALIYA MOORE Age: 57 years Sex: Female : 1965 Associated Diagnoses: None Author: Paulino BOOTHE, Roby Daivs Chief Complaint She is here for results of the thrombophilia work up and decision about duration of anticoagulation for the acute PE diagnosed on 06/16/23. History of Present Illness Aliya was referred to our hematology office at [facility] for Thrombophilia work up and decision about duration of anticoagulation for the acute PE diagnosed on . She is a 57-year-old female cigarette smoker with history of hypertension, grz-brnnmvu-soinotble diabetes mellitus, obesity, chronic hypoxic respiratory failure on 3 L home oxygen, and depression who presented on 06/16/23 to [facility] with complaints of right-sided chest pain [...] puff(s), Inhalation, BID fluticasone Nasal 0.05 mg/inh [place] 2 spray(s), Nasal, Daily furosemide 20 mg Tab 20 mg = 1 tab(s), Oral, Daily gabapentin 300 mg Cap 300 mg = 1 cap(s), Oral, BID hydrochlorothiazide-l isinopril 25 mg-20 mg Tab 1 tab(s), Oral, Daily lamotrigine 25 mg Tab 25 mg = 1 tab(s), Oral, BID pioglitazone 15 mg Tab 15 mg = 1 tab(s), Oral, Daily Potassium Chloride (Dze-Ilck-Kcz 10) 10 mEq oral tablet, extended release [...] list: All Problems Smoker / SNOMED CT 938954046 / Confirmed Added secondary to documentation in Social History. Histories Past Medical History: No active or resolved past medical history items have been selected or recorded. Family History: History is unknown. Procedure history: delivery (SNOMED CT 5684828159) on 05/05/1987 at 21 Years. delivery (SNOMED CT 5575835762) on 06/20/1984 at 18 Years. Cyst (SNOMED CT 1518857644). Comments: 06/28/2023 11:00 EDT - Prisca Montoya A Removal of cyst of right foot. Knee (SNOMED CT 594744636). Comments: 06/28/2023 11:01 EDT - Prisca Montoya A surgery Social History Social & Psychosocial Habits Alcohol Comment: denjose - 06/16/2023 16:10 - Kezia Catalan Substance Abuse Comment: - 06/16/2023 16:10 - Aundrea (more content not included)... Normal [facility] .VIPER VENOM MIXING STUDYon 07-08-2023 dRVVT w 1:1 PNP Coag (PPP) [Time] 47.4 second(s) High 0.0-40.4 [facility] Comment on above: Result Comment: Perf ormed at: [facility] [address] [id number] MD Tony Laird Performed By: #### 1 14794813, 33439128, 5978181, 51065798, 18951916, 55442450, 28336028, 2586018, 9686676, 0459067, 73711341, 1097189 ####[facility] [address] [place] [address] MARY KATE ABS Ig G,M,Aon 3 Cardiolipin IgA IA Qn (S) <9 Invalid Interpretation Code 0-11 [facility] Comment on above: Result Comment: Nega tive: <12 Indeterminate: 12 - 20 Low-Med Positive: >20 - 80 High Positive: >80 Performed at: [facility] [address] [id number] PhD Matthew Funez Performed By: #### 1 26723211, 30273173, 1428356, 46406874, 07706660, 89976575, 51467726, 3091482, 9215637, 7519372, 74288280, 8130525 ####[facility] [address] [place] [address] Cardiolipin IgG IA Qn (S) <9 Invalid Interpretation Code 0-14 [facility] Comment on above: Result Comment: Nega tive: <15 Indeterminate: 15 - 20 Low-Med Positive: >20 - 80 High Positive: >80 Performed By: #### 1 49632977, 44548963, 7977158, 05461414, 60751554, 45715312, 13160009, 3150798, 7813127, 0272603, 39906346, 2931541 ####[facility] [address] [place] [address] Cardiolipin IgM IA Qn (S) <9 Invalid Interpretation Code 0-12 [facility] Comment on above: Result Comment: Nega tive: <13 Indeterminate: 13 - 20 Low-Med Positive: >20 - 80 High Positive: >80 Performed By: #### 1 21963194, 82669392, 4736329, 68614836, 72218938, 15217255, 51103446, 9814277, 9473462, 1164557, 34639546, 1250667 ####[facility] [address] [place] [address] Beta-2 Glycoprot.i Aon 07-08 Beta 2 glycoprotein 1 IgA Qn (S) 19 Invalid Interpretation Code 0-25 [facility] Comment on above: Result Comment: The reference interval reflects a 3SD or 99th percentile interval, which is thought to represent a potentially clinically significant result in accordance with the International Consensus Statement on the classification criteria for definitive antiphospholipid syndrome (APS). J Thromb Haem 2006;4:295-306. Performed By: #### 1 62821119, 89560010, 4715347, 86269117, 65222891, 32025266, 06321844, 9724114, 7025518, 2323478, 76357533, 4368350 ####[facility] [address] [place] [address] Beta 2 glycoprotein 1 IgG Qn (S) <9 Invalid Interpretation Code 0-20 [facility] Comment on above: Result Comment: The reference interval reflects a 3SD or 99th percentile interval, which is thought to represent a potentially clinically significant result in accordance with the International Consensus Statement on the classification criteria for definitive antiphospholipid syndrome (APS). J Thromb Haem 2006;4:295-306. Performed By: #### 1 80668683, 52676379, 1632003, 47680384, 61978834, 44023286, 92020992, 3252150, 8853823, 0090899, 61115479, 2331516 ####[facility] [address] [place] [address] Beta 2 glycoprotein 1 IgM Qn (S) <9 Invalid Interpretation Code 0-32 [facility] Comment on above: Result Comment: The reference interval reflects a 3SD or 99th percentile interval, which is thought to represent a potentially clinically significant result in accordance with the International Consensus Statement on the classification criteria for definitive antiphospholipid syndrome (APS). J Thromb Haem 2006;4:295-306. Performed at: [facility] [id number] MD Tony Laird Performed By: #### 1 93957255, 50528779, 6099730, 85500866, 73400561, 26170670, 86330001, 5602299, 9438017, 7452075, 92875372, 0135342 ####[facility] [address] [place] [address] Factor II, DNA Analysison F2 gene c.25425J>A genotype [facility] (Bld/Tiss) Comment Invalid Interpretation Code [facility] Comment on above: Result Comment: Resu [...] the F2 gene and a c.1601G>A (p. Gkp714Gqz) variant in the F5 gene (commonly referred to as Factor V Leiden) have an approximately 20- fold increased risk for venous thromboembolism. Risks are likely to be even higher in more complex genotype combinations involving the F2 c.*97G>A variant and Factor V Leiden (PMID: 78270003). Additional risk factors include but are not [...] health care providers to discuss results at [phone] (1149). Test Details: Variant analyzed: c.*97G>A, previously referred to as [id number] Methods/Limitations: DNA analysis of the F2 gene [...] developed and its performance characteristics determined by [employer]. It has not been cleared or approved by the Food and Drug Administration. References: Aries S, Enma AK, Martínez R, Dre WW, Gabriel JH; ACMG Professional Practice and Guidelines Committee. Addendum: [employer] consensus statement on factor V Leiden mutation testing. Tasha Med. 2020Jan 02. doi: 10.1038/z30418-766-59235-v. PMID: 98843947. Yarely CROCKETT. Prothrombin Thrombophilia. 2005May 24 [Updated 2020Dec 04]. In: Allen MP, Tim CHAVEZ, Renee RA, et al., editors. Aren(Marlyn) [Internet]. [place] [facility], [place]; 5446-2554. Available from: https://www.ncbi.nlm.nih.gov/books/JDZ0599/ Real S, Enma AK, Jonel X, Gerry B, Santi EB, Amparo P, Humberto CS; [employer] Laboratory Saddle Stitch Operator Committee. Venous thromboembolism laboratory testing (factor V Leiden and factor II c.*97G>A), 2018 update: a technical standard of the [employer] and [employer] (ACMG). Tasha Med. 2018 Sep;20(12):0379-7749. doi: 10.1038/[id number]-y. Epub 2017Aug 04. PMID: 32745469. Performed By: #### 1 60974679, 35730904, 9542499, 23172201, 91723542, 57644997, 33881987, 8578073, 4044088, 5027638, 10944545, 7997975 ####[facility] [address] [place] [address] Factor V Leidenon 07-08-2023 F5 gene p.Pnj382Kmv [facility] (Bld/Tiss) Comment Invalid Interpretation Code [facility] Comment on above: Result Comment: Resu lt: c.1601G>A (p.Ced858Saf) - Not Detected This result is not associated with an increased risk for venous thromboembolism. See Additional Clinical Information and Comments. Additional Clinical Information: Venous thromboembolism is a multifactorial disease influenced by genetic, environmental, and circumstantial risk factors. The c.1601G>A (p. Eis686Dgc) variant in the F5 gene, commonly referred [...] c.*97G>A variant and Factor V Leiden (PMID: 87734839). Additional risk factors include but are not [...] health care providers to discuss results at [phone] (5115). Test Details: Variant Analyzed: c.1601G>A (p. Xuq091Wnu), referred to as Factor V Leiden Methods/Limitations: [...] developed and its performance characteristics determined by [employer]. It has not been cleared or approved by the Food and Drug Administration. References: Aries S, Enma AK, Mauricio R, Dre WW, Gabriel JH; [employer]G Professional Practice and Guidelines Committee. Addendum: [employer] consensus statement on factor V Leiden mutation testing. Tasha Med. 2020Jan 02. doi: 10.1038/[id number]-s. PMID: 26580790. Yarely CROCKETT. Factor V Leiden Thrombophilia. 1998March 13 (Updated 2017Nov 03). In: Allen MP, Tim HH, Renee RA, et al., editors. RickyMightyQuizbrenda(R) (Internet). [place] ([place]): [facility]; 4552-2030. Available from: https://www.ncbi.nlm.nih.gov/books/CFZ2759/ Real S, Enma AK, Jonel X, Gerry B, Santi EB, Amparo P, Humberto CS; [facility] Laboratory Saddle Stitch Operator Committee. Venous thromboembolism laboratory testing (factor V Leiden and factor II c.*97G>A), 2018 update: a technical standard of the [employer] (ACMG). Tasha Med. 2018 Sep;20(12):4507-6002. doi: 10.1038/[id number]-i. Epub 2017Aug 04. PMID: 92828292. Performed By: #### 1 08717416, 55921337, 1396413, 12330695, 59211835, 12137359, 70868883, 6817797, 3623051, 7221210, 76885675, 6711789 ####[facility] [address] [place] [address] Lupus Anticoagon 07-08-2023 aPTT.lupus sensitive Coag (PPP) [Time] 33.8 second(s) Invalid Interpretation Code 0.0-43.5 [facility] Comment on above: Performed By: #### 1 67356185, 99327849, 2788174, 52256166, 32201779, 63811458, 67486560, 0871378, 5966676, 4302625, 63655392, 6662471 ####[facility] [address] [place] [address] dRVVT Coag (PPP) [Time] 57.5 second(s) High 0.0-47.0 [facility] Comment on above: Result Comment: Perf ormed at: [facility] [id number] MD Tony Laird Performed By: #### 1 35571471, 59572893, 3891184, 78653160, 45444563, 95291100, 32673726, 4957782, 4976504, 8804055, 98736312, 2335778 ####[facility] [address] [place] [address] Lupus anticoagulant two screening tests W Reflex Coag (PPP) [Interp] Comment: Invalid Interpretation Code [facility] Comment on above: Result Comment: No l upus anticoagulant was detected. These results are consistent with specific inhibitors to one or more common pathway factors (X, V, II or fibrinogen). [facility] [id number] MD Tony Laird Performed By: #### 1 70518227, 39231626, 0124654, 64433343, 67526060, 10577521, 23521245, 5050080, 0094658, 0751335, 81654169, 4596212 ####[facility] [address] [place] [address] dRVVT CONFIRMon 07-08-2023 dRVVT/dRVVT.excess phospholipid Coag (PPP) [Ratio] 1.0 ratio Invalid Interpretation Code 0.8-1.2 [facility] Comment on above: Result Comment: Perf ormed at: [address] [id number] MD Tony Laird Performed By: #### 1 67300295, 16420800, 5279140, 48232130, 10004488, 25613483, 80328496, 7919075, 0729519, 2477193, 52448223, 5302013 ####[facility] [address] [place] [address] Consenton 07-07-2023 Consent [id number]# 1.00CD:127 Normal [facility] Lab Miscellaneous-LCon 07-01 Lab Miscellaneous COMMENT Invalid Interpretation Code [facility] Comment on above: Result Comment: Test Ordered: [id number] Protein S-Functional Protein S-Functional 98 % BN Reference Range: 63-140 Protein S activity may be falsely increased (masking an abnormal, low result) in patients receiving direct Xa inhibitor (e.g., rivaroxaban, apixaban, edoxaban) or a direct thrombin inhibitor (e.g., dabigatran) anticoagulant treatment due to assay interference by these drugs. Performed at: [address] [id number] PhD Matthew Funez Performed By: #### 1 [id number] ####[address] [place] [address] Protein S-antigenon 07-01-20 23 Protein S Ag actual/normal IA (PPP) [Relative mass conc] 99 % Invalid Interpretation Code 60-150 [facility] Comment on above: Result Comment: This test was developed and its performance characteristics determined by [employer]. It has not been cleared or approved by the Food and Drug Administration. Performed By: #### 1 9223713 ####[address] [address] Protein S Free Ag actual/normal IA (PPP) [Relative mass conc] 93 % Invalid Interpretation Code 61-136 [facility] Comment on above: Result Comment: Perf ormed at: [address] [id number] MD Tony Laird Performed By: #### 1 9023224 ####[address] [address] Lab Miscellaneous-LCon 06-30 Lab Miscellaneous COMMENT Invalid Interpretation Code [facility] Comment on above: Result Comment: Test Ordered: [id number] Protein C-Functional Protein C-Functional 140 % BN Reference Range: 73-180 Performed at: [address] [id number] PhD Matthew Funez Performed By: #### 1 [id number] ####[address] [address] Result Comment: Test Ordered: 292618 Antithrombin Activity Antithrombin Activity 146 [H ] % BN Reference Range: 75-135 An elevated antithrombin activity is of no known clinical significance. Direct Xa inhibitor anticoagulants such as rivaroxaban, apixaban and edoxaban will lead to spuriously elevated antithrombin activity levels possibly masking a deficiency. Performed at: [facility] [id number] [place], [place] [id number] PhD Castro Armin Auto Diffon 06-28-2023 Basophils/100 WBC (Bld) 0.6 % Normal 0.0-2.0 [facility] Comment on above: Order Comment: Order Added by Discern Expert. Performed By: #### 1 58859049, 40042151, 0560652, 64908401, 98467965, 64935431, 28407482, 5109738, 0217878, 6709178, 55508605, 1061661 ####[facility] [address] [place] [address] Basophils/Leukocytes Auto (Bld) [Pure # fraction] 0.0 E9/L Normal 0.0-0.2 [facility] Comment on above: Order Comment: Order Added by Discern Expert. Performed By: #### 1 66971868, 75964799, 1835954, 32996817, 78267185, 89765519, 13454366, 4863410, 0981386, 7095902, 96029105, 5053175 ####[facility] [address] [place] [address] Eosinophils/100 WBC (Bld) 0.7 % Normal 0.0-8.0 [facility] Comment on above: Order Comment: Order Added by Discern Expert. Performed By: #### 1 42844703, 28647039, 6563181, 55714921, 80997040, 36891563, 28254962, 2963316, 0710544, 0653485, 07721850, 4034084 ####[facility] [address] [place] [address] Eosinophils/Leukocytes Auto (Bld) [Pure # fraction] 0.1 E9/L Normal 0.0-0.5 [facility] Comment on above: Order Comment: Order Added by Discern Expert. Performed By: #### 1 32575553, 32878279, 0859352, 17325203, 67557999, 57145853, 24838213, 9026576, 2039480, 5757174, 25596240, 0241669 ####[facility] [address] [place] [address] Lymphocytes/100 WBC (Bld) 12.9 % Low 14.0-50.0 [facility] Comment on above: Order Comment: Order Added by Discern Expert. Performed By: #### 1 03478134, 32775417, 9057371, 31608221, 09926000, 37853511, 83640368, 8142041, 9944688, 0578237, 33652298, 6784650 ####[facility] [address] [place] [address] Lymphocytes/Leukocytes Auto (Bld) [Pure # fraction] 1.0 E9/L Normal 1.0-4.0 [facility] Comment on above: Order Comment: Order Added by Discern Expert. Performed By: #### 1 95838255, 08884749, 9789081, 03356031, 47675979, 17604456, 10327677, 6410580, 0808991, 4361083, 47713721, 3832344 ####[facility] [address] [place] [address] Monocytes/100 WBC (Bld) 6.8 % Normal 4.0-14.0 [facility] Comment on above: Order Comment: Order Added by Discern Expert. Performed By: #### 1 34103065, 45054852, 2557001, 46738735, 47277318, 93570535, 58859138, 7093120, 5292449, 5987814, 27804967, 6815397 ####[facility] [address] [place] [address] Monocytes/Leukocytes Auto (Bld) [Pure # fraction] 0.5 E9/L Normal 0.2-1.0 [facility] Comment on above: Order Comment: Order Added by Discern Expert. Performed By: #### 1 86648879, 04489898, 4197950, 13392092, 04438979, 91251548, 88914798, 8734709, 0753836, 9731439, 09449119, 2188590 ####[facility] [address] [place] [address] Neutrophils/100 WBC (Bld) 79.0 % High 36.0-75.0 [facility] Comment on above: Order Comment: Order Added by Discern Expert. Performed By: #### 1 48197915, 46974263, 3753731, 62308277, 79331366, 37046073, 55716133, 5010957, 3809893, 9760025, 20284590, 2547505 ####[facility] [address] [place] [address] Neutrophils/Leukocytes Auto (Bld) [Pure # fraction] 6.1 E9/L Normal 2.0-7.5 [facility] Comment on above: Order Comment: Order Added by Discern Expert. Performed By: #### 1 16320334, 96953255, 9993854, 85116273, 47018025, 90763123, 91929343, 5972010, 4127106, 0280313, 38540735, 9599443 ####[facility] [address] [place] [address] CBC w/ Auto Diffon 3 Erythrocyte distribution width (RBC) [Ratio] 14.7 % High 10.9-14.2 [facility] Comment on above: Performed By: #### 1 71791965, 90297344, 4486979, 55706364, 84990021, 19676283, 44013112, 2340351, 7455895, 6905284, 53179394, 3237379 ####[facility] [address] [place] [address] Hematocrit (Bld) [Volume fraction] 38.9 % Normal 34.0-46.0 [facility] Comment on above: Performed By: #### 1 85978482, 91561941, 5878958, 33699674, 17258614, 62274261, 32249312, 4528960, 9664007, 2664383, 99903124, 7738628 ####[facility] [address] [place] [address] Hemoglobin (Bld) [Mass/Vol] 13.1 g/dL Normal 12.0-16.0 [facility] Comment on above: Performed By: #### 1 13672949, 43190171, 0205248, 55139598, 14958039, 90611195, 69799067, 1161114, 2292511, 3246532, 68720455, 0917109 ####[facility] [address] [place] [address] MCH (RBC) [Entitic mass] 29.4 pg Normal 27.0-34.0 [facility] Comment on above: Performed By: #### 1 32758275, 69473601, 6239312, 23733162, 27928408, 03454253, 87565535, 8889920, 3706097, 7407285, 75795247, 5162803 ####[address] [address] MCHC (RBC) [Mass/Vol] 33.6 g/dL Normal 31.4-36.0 [facility] Comment on above: Performed By: #### 1 13157954, 78528891, 5334454, 05057211, 79612933, 48390385, 40299443, 6422707, 0400970, 0740882, 52226531, 4619536 ####[facility] [address] [place] [address] MCV (RBC) [Entitic vol] 87.4 fL Normal 80.0-100.0 [facility] Comment on above: Performed By: #### 1 98458958, 93000406, 6550300, 90427947, 24179187, 52420038, 11392096, 9783396, 3452234, 3414181, 91398155, 1603951 ####[facility] [address] [place] [address] Platelet mean volume (Bld) [Entitic vol] 10.7 fL Normal 6.4-10.8 [facility] Comment on above: Performed By: #### 1 63961524, 76918387, 3894981, 06160195, 78816918, 43980728, 53425473, 7623604, 6980256, 5227903, 22356339, 2028902 ####[facility] [address] [place] [address] Platelets (Bld) [#/Vol] 183.0 E9/L Normal 150.0-500.0 [facility] Comment on above: Performed By: #### 1 39628207, 76554867, 9425113, 08835860, 59980938, 64303717, 16883342, 0184760, 1005217, 8257325, 72263484, 7824880 ####[address] [address] RBC (Bld) [#/Vol] 4.5 E12/L Normal 4.3-5.9 [facility] Comment on above: Performed By: #### 1 24085265, 17703255, 2355470, 00088542, 04371509, 21352436, 98595657, 8163096, 3725974, 6289113, 42619232, 5402530 ####[address] [address] WBC corrected for nucl RBC Auto (Bld) [#/Vol] 7.7 E9/L Normal 4.0-11.0 [facility] Comment on above: Performed By: #### 1 94712184, 54879368, 9427487, 76617206, 89037566, 85261710, 44128535, 9207014, 3404514, 3888321, 10405016, 2492048 ####[address] [address] CMPon 06-28-2023 Albumin [Mass/Vol] 3.9 g/dL Normal 3.3-5.0 [facility] Comment on above: Performed By: #### 1 46599396, 51815185, 4849221, 86721116, 16555593, 14373635, 21385492, 5244515, 8132585, 0560876, 55154843, 0920009 ####[facility] [address] [place] [address] Albumin/Globulin (S) [Mass conc ratio] 0.9 Low 1.1-2.2 [facility] Comment on above: Performed By: #### 1 44494206, 03846502, 9472613, 89845843, 04806435, 05212297, 37554358, 7306705, 4714716, 1556072, 28003665, 4416560 ####[facility] [address] [place] [address] ALP [Catalytic activity/Vol] 69 Int._Unit/L Normal 21-98 [facility] Comment on above: Performed By: #### 1 70447066, 59212938, 9057071, 04813962, 55341344, 30237645, 58455696, 3415758, 4740198, 8045840, 71886704, 8589532 ####[facility] [address] [place] [address] ALT No additional P-5'-P [Catalytic activity/Vol] 19 Int._Unit/L Normal 6-46 [facility] Comment on above: Performed By: #### 1 08096562, 67495937, 2874852, 19390960, 24434213, 95680873, 25943484, 2900786, 9544908, 9425015, 82056569, 4226066 ####[facility] [address] [place] [address] Anion gap [Moles/Vol] 13 mmol/L Normal 6-16 [facility] Comment on above: Performed By: #### 1 77643553, 25619901, 2791793, 52095475, 98625249, 99899215, 96375363, 2201499, 0155631, 0799081, 04661467, 8865660 ####[facility] [address] [place] [address] AST [Catalytic activity/Vol] 22 Int._Unit/L Normal 5-43 [facility] Comment on above: Performed By: #### 1 77147408, 61492304, 9371779, 34763799, 81891722, 74923029, 70374127, 9679066, 8315354, 2991376, 54527838, 6343671 ####[facility] [address] [place] [address] Bilirubin [Mass/Vol] 0.4 mg/dL Normal 0.0-1.1 [facility] Comment on above: Performed By: #### 1 26855768, 85933233, 5605994, 37770656, 52419515, 90866445, 59085854, 6825777, 1124130, 8875825, 52014754, 1763795 ####[facility] [address] [place] [address] Calcium [Mass/Vol] 9.8 mg/dL Normal 8.9-11.1 [facility] Comment on above: Performed By: #### 1 68961456, 78801629, 3382139, 40781693, 52058431, 18825790, 73930077, 3017075, 3985123, 8903547, 98989864, 3156530 ####[facility] [address] [place] [address] Chloride [Moles/Vol] 98 mmol/L Low 101-111 [facility] Comment on above: Performed By: #### 1 01717826, 88215590, 2519508, 69016754, 63912707, 88473782, 10401616, 6302230, 6941467, 0781004, 11571242, 9317139 ####[facility] [address] [place] [address] CO2 [Moles/Vol] 29 mmol/L Normal 21-31 [facility] Comment on above: Performed By: #### 1 39220579, 31252962, 3195020, 20877096, 73636069, 67454667, 27960602, 1178325, 3508673, 0477768, 54216352, 9630622 ####[facility] [address] [place] [address] Creatinine [Mass/Vol] 0.9 mg/dL Normal 0.5-1.3 [facility] Comment on above: Performed By: #### 1 38084718, 23778253, 4400381, 42340813, 17389396, 86517637, 74764915, 0738675, 0898896, 3372689, 67750155, 5315847 ####[facility] [address] [place] [address] Globulin (S) [Mass/Vol] 4.3 g/dL High 1.4-4.0 [facility] Comment on above: Performed By: #### 1 78158472, 82765817, 0146325, 73511517, 92778694, 09901889, 00112367, 3275858, 3822935, 2071827, 14034985, 6894302 ####[facility] [address] [place] [address] Glucose [Mass/Vol] 155 mg/dL Normal 55-199 [facility] Comment on above: Result Comment: If t his glucose result represents a fasting glucose, interpretation should refer to the following reference range: 55-99 mg/dL Performed By: #### 1 30827899, 65757266, 2352958, 16588085, 84458674, 34514622, 82964499, 4584244, 8123329, 8868642, 52756418, 5791132 ####[facility] [address] [place] [address] Potassium [Moles/Vol] 3.9 mmol/L Normal 3.5-5.3 [facility] Comment on above: Performed By: #### 1 56903346, 62440873, 6081710, 79957399, 18504680, 79914927, 32941047, 7105382, 3110929, 5026375, 47358656, 7547210 ####[facility] [address] [place] [address] Protein [Mass/Vol] 8.2 g/dL High 6.0-7.8 [facility] Comment on above: Performed By: #### 1 52007388, 10036999, 8044921, 05619345, 33685481, 29140780, 13092737, 1347268, 9738154, 2063882, 70399633, 0622671 ####[facility] [address] [place] [address] Sodium [Moles/Vol] 136 mmol/L Normal 135-145 [facility] Comment on above: Performed By: #### 1 59585183, 38951150, 3682348, 60962763, 77352862, 31755970, 83719307, 1324603, 8964659, 0045502, 05700211, 7511144 ####[facility] [address] [place] [address] Urea nitrogen [Mass/Vol] 22 mg/dL High 5-21 [facility] Comment on above: Performed By: #### 1 80917048, 95815465, 4286792, 39773117, 54347301, 09569397, 13798465, 5045143, 8490830, 0103987, 66020762, 9181549 ####[facility] [address] [place] [address] Urea nitrogen/Creatinine [Mass ratio] 24 No Units High 10-20 [facility] Comment on above: Performed By: #### 1 15299982, 02408346, 5788075, 79911497, 44194861, 07084688, 59079560, 8101913, 5585723, 9537959, 73520933, 2236992 ####[facility] [address] [place] [address] Consent for Treatmenton 06-01 Consent for Treatment [id number] 308 [id number] .00CD:127 Normal [facility] Consent for Treatment [id number] 308 [id number]#1 .00CD:127 Normal [facility] D-Dimeron 06-28-2023 Fibrin D-dimer FEU (PPP) [Mass/Vol] 392 [id number] Normal 215-500 [facility] Comment on above: Result Comment: This [...] infections Liver cirrhosis Performed By: #### 1 46753031, 29785727, 2358825, 51665986, 34162621, 21657333, 79585299, 3544242, 5673557, 4256295, 20904479, 5285092 ####[facility] [address] [place] [address] Lab Miscellaneous-LCon 06-28 Lab Miscellaneous orderable test Invalid Interpretation Code [facility] Comment on above: Order Comment: order able test Performed By: #### 1 797962850 ####[facility] [address] [place] [address] Test Code 478389 Invalid Interpretation Code [facility] Comment on above: Order Comment: order able test Performed By: #### 1 538639623 ####[facility] [address] [place] [address] Test Code 626994 Invalid Interpretation Code [facility] Comment on above: Performed By: #### 1 601631538 ####[facility] [address] [place] [address] Test Code 971283 Invalid Interpretation Code [facility] Comment on above: Performed By: #### 1 790717248 ####[facility] [address] [place] [address] Test Code 856517 Invalid Interpretation Code [facility] Comment on above: Performed By: #### 1 435807717 ####[facility] [address] [place] [address] Test Name Prot s, ant Invalid Interpretation Code [facility] Comment on above: Order Comment: order able test Performed By: #### 1 [id number] ####[address] [place] [address] Test Name Prot C, func Invalid Interpretation Code [facility] Comment on above: Performed By: #### 1 363251860 ####[facility] [address] [place] [address] Test Name AntiThromb III Invalid Interpretation Code [facility] Comment on above: Performed By: #### 1 546154076 ####[facility] [address] [place] [place] [address] Test Name Prot S, func Invalid Interpretation Code [facility] Comment on above: Performed By: #### 1 489100516 ####[facility] [address] [place] [address] Oncology Noteon 06-28-2023 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 Normal [facility] Comment on above: Result Comment: Dorene yovani Signed By: Tre CAZARES, Kristy\.marek\Date and Time Signed: 06/28/23 11:35 EDT Oncology Progress Noteon Oncology Progress Note Patient: ALIYA MOORE Age: 57 years Sex: Female : 1965 Associated Diagnoses: None Author: Paulino BOOTHE, Roby Davis Chief Complaint Thrombophilia work up and decision about duration of anticoagulation for the acute PE diagnosed on . History of Present Illness Aliya was referred to our [place] office [place] [facility] for Thrombophilia work up and decision about duration of anticoagulation for the acute PE diagnosed on . She is a 57-year-old female cigarette smoker with history of hypertension, kqt-lkfluef-iaffsuvwk diabetes mellitus, obesity, chronic hypoxic respiratory failure on 3 L home oxygen, and depression who presented on 06/16/23 to [facility] with complaints of right-sided chest pain [...] puff(s), Inhalation, BID fluticasone Nasal 0.05 mg/inh [place] 2 spray(s), Nasal, Daily furosemide 20 mg Tab 20 mg = 1 tab(s), Oral, Daily gabapentin 300 mg Cap 300 mg = 1 cap(s), Oral, BID hydrochlorothiazide-l isinopril 25 mg-20 mg Tab 1 tab(s), Oral, Daily lamotrigine 25 mg Tab 25 mg = 1 tab(s), Oral, BID pioglitazone 15 mg Tab 15 mg = 1 tab(s), Oral, Daily Potassium Chloride (Mai-Xrdz-Yhq 10) 10 mEq oral tablet, extended release [...] list: All Problems Smoker / SNOMED CT 622458927 / Confirmed Added secondary to documentation in Social History. Histories Past Medical History: No active or resolved past medical history items have been selected or recorded. Family History: History is unknown. Procedure history: delivery (SNOMED CT 3532046709) on 05/05/1987 at 21 Years. delivery (SNOMED CT 5743119676) on 06/20/1984 at 18 Years. Cyst (SNOMED CT 9961342655). Comments: 06/28/2023 11:00 EDT - Prisca Montoya Removal of cyst of right foot. Knee (SNOMED CT 896756980). Comments: 06/28/2023 11:01 EDT - Prisca Montoya [...] Rate 16 (more content not included)... Normal [facility] eGFRon 06-28-2023 GFR/1.73 sq M.predicted among non-blacks MDRD (S/P/Bld) [Vol rate/Area] 74 mL/min/1.73 m2 Normal >=59 [facility] Comment on above: Order Comment: Order added by Discern Expert. Result Comment: Boiler Reliner nita kidney disease could be indicated at eGFR's of less than 60 mL/min/1.73m2. Kidney failure is indicated at less than 15 mL/min/1.73m2. Performed By: #### 1 86262533, 40012394, 0601565, 77379270, 50001387, 20657215, 13605772, 8458388, 1768567, 9661981, 74735541, 9568685 ####[facility] [address] [place] [address] Discharge Instructionson Discharge Instructions [id number]# 1.00CD:127 Normal [facility] CHEMISTRYOrdered By: Lab ROP User on 06-17-2023 Glucose [Mass/Vol] 109 mg/dL High 55 - 99 mg/dL [facility] POC Subsection Comment on above: Result Comment: Rafaela VELASQUEZ POC Device SN [id number] Invalid Interpretation Code FT POC Subsection POC User ID [id number] Invalid Interpretation Code FT POC Subsection POC Username BRENDA KHAN Invalid Interpretation Code [facility] POC Subsection Glucose [Mass/Vol] 133 mg/dL High 55 - 99 mg/dL [facility] POC Subsection Comment on above: Result Comment: Rafaela VELASQUEZ POC Device SN [id number] Invalid Interpretation Code FT POC Subsection POC User ID [id number] Invalid Interpretation Code FT POC Subsection POC Username WYATT MUROAdriana Invalid Interpretation Code FT POC Subsection Glucose [Mass/Vol] 109 mg/dL High 55 - 99 mg/dL [facility] POC Subsection Comment on above: Result Comment: Rafaela VELASQUEZ POC Device SN [id number] Invalid Interpretation Code FT POC Subsection POC User ID [id number] Invalid Interpretation Code [facility] POC Subsection POC Username BRENDA KHAN Invalid Interpretation Code [facility] POC Subsection CHEMISTRYOrdered By: Kimberley Freeman on 06-17-2023 HbA1c (Bld) [Mass fraction] 5.7 % Normal <=5.9% [facility] ChemAutoSS CHEMISTRYOrdered By: SYSTEM SYSTEM on 06-17-2023 Troponin I.cardiac [Mass/Vol] 5.20 pg/mL Low 10.10 - 27.10 pg/mL [facility] Remisol Capillary Glucose POCon 05-31 Glucose [Mass/Vol] 109 mg/dL High 55-99 [facility] Comment on above: Result Comment: Rafaela VELASQUEZ Performed By: #### 2 [id number] ####[facility] [address] [place] [address] Glucose [Mass/Vol] 133 mg/dL High 55-99 [facility] Comment on above: Result Comment: Rafaela VELASQUEZ Performed By: #### 2 [id number] ####[facility] [address] [place] [address] Glucose [Mass/Vol] 109 mg/dL High 55-99 [facility] Comment on above: Result Comment: Rafaela VELASQUEZ Performed By: #### 2 [id number] ####[facility] [address] [place] [address] Discharge Note-Nursingon Discharge Note-Nursing ALIYA MOORE :1965 [...] care physician. This Is Your Medications List [facility] Prescription (ATORVASTATIN CALCIUM 40 MG TABLET) albuterol (Ventolin HFA 90 mcg/inh Aerosol-Adpt) albuterol-ipratropium (albuterol-ipratropiu m Inh Debby 3 mL UD) apixaban (Eliquis 5 mg oral tablet) aspirin (Aspirin Low Dose 81 mg oral enteric coated tablet) busPIRone (busPIRone 15 mg Tab) duloxetine (duloxetine 60 mg oral delayed release capsule) fluticasone (Flovent HFA 110 Aerosol) fluticasone nasal (fluticasone Nasal 0.05 mg/inh Florissant) formoterol-glycopyrro late (Bevespi Aerosphere 9 mcg-4.8 mcg/inh inhalation aerosol) furosemide (furosemide 20 mg Tab) gabapentin (gabapentin 300 mg Cap) hydrochlorothiazide-l isinopril (hydrochlorothiazide- lisinopril 25 mg-20 mg Tab) lamotrigine (lamotrigine 25 mg Tab) multivitamin (Daily Harvinder oral tablet) pioglitazone (pioglitazone 15 mg Tab) potassium chloride (Potassium Chloride (Hbx-Waku-Vlj 10) 10 mEq oral tablet, extended release) [...] Christian When: 06/28/2023 11:00 AM EDT Where: [facility] [address] [place] [address] [place] [address]- Follow Up with BREA JJ When: Within 1 week Comments: A voice message is left with this office with your information so they can call you for a follow up appiontment. Please call them if you do not hear from them in a few days. Thank you. Where: [address] [place] [address] [phone] Business (1) Medications What How Much When [...] oral delayed release capsule) Every day 06/18 9 AM Unchanged fluticasone (Flovent HFA 110 Aerosol) 2 Puffs Inhalation 2 times a day 06/17 PM Unchanged fluticasone nasal (fluticasone Nasal 0.05 mg/ inh Floriss[place]) 2 Sprays Nasal Inhalation Every day each nostril 06/18 AM Unchanged formoterol-glycopyrro late (Bevespi Aerosphere 9 mcg-4.8 mcg/ inh inhalation aerosol) 2 Puffs Inhalation 2 times a day 06/17 @ PM Unchanged furosemide (furosemide 20 mg Tab) 1 Tablets By Mouth Every day 06/18 @ AM Unchanged gabapentin (gabapentin 300 mg Cap) 1 Capsules By Mouth 2 times a day 06/17 PM Unchanged hydrochlorothiazide-l isinopril (hydrochlorothiazide- lisinopril 25 mg-20 mg Tab) 1 Tablets By Mouth Every day 06/18 @ AM Unchanged lamotrigine (lamotrigine 25 mg Tab) 1 Tablets By Mouth 2 times a day 06/17 PM Unchanged Misc Prescription (ATORVASTATIN CALCIUM 40 MG TABLET) 0 Every day 06/18 @ AM Unchanged multivitamin (Daily Harvinder oral tablet) 1 Tablets By Mouth Every day 06/18 (more content not included)... Normal [facility] SkpW8yyo 06-17-2023 HbA1c (Bld) [Mass fraction] 5.7 % Normal <=5.9 [facility] Comment on above: Performed By: #### 7 [id number] ####[facility] [address] [place] [address] Inpatient Clinical Summaryon 06-17-2023 Inpatient Clinical Summary [address] [address] Clinical Summary Person Information: Name: ALIYA MOORE Age: 57 Years : 1965 Sex: Female PCP: BREA JJ CNP Marital Status: Race: White Ethnicity: Non- or Language: Yi Visit Id: Visit Reason: Chest pain; MID STERNUM PAIN Speciality: Acuity: Enc Type: Observation Med Service: Medical Arrival: 06/16/2023 15:45:03 Discharge: Dispo Type: Admitted as IP to this Hosp Address: [address] [place] [address] [address] [facility] [phone] Provider Notes: Diagnosis: 1:Chest pain; 2:Acute pulmonary [...] day. fluticasone nasal (fluticasone Nasal 0.05 mg/inh Floriss[place]) 2 Sprays Nasal Inhalation every day. each [...] Mouth every day. potassium chloride (Potassium Chloride (Pao-Mceo-Wed 10) 10 mEq oral tablet, extended release) [...] With: Address: When: BREA JJ [address] [facility] [place], [place] [phone] Business (1) Within 1 week Comments: A voice message is left with this office with your information so they can call you for a follow up appiontment. Please call them if you do not hear from them in a few days. Thank you. With: Address: When: Ezekiel Christian [facility], [address] [place] [address] 06/28/2023 11:00 AM Type Location Start [facility] ONC Office Visit [facility] ([facility]) [facility] 06/28/2023 11:00 AM 06/28/2023 11:45 AM Confirmed Patient Education Information: Normal [facility] Inpatient Patient Summaryon 06-17-2023 Inpatient Patient Summary [address] [address] Patient Discharge Instructions PERSON INFORMATION Name: MOOREALIYA Sarmiento Date of : 1965 Current Date: 06/17/2023 09:58:26 PHYSICIANS Admitting Physician: Alex BARRIENTOS MD Primary Care Physician: BREA JJ CNP PCP Phone Number: [phone] Comment: Discharge Diagnosis: 1:Chest pain; 2:Acute pulmonary embolism; 3:Sinus tachycardia; 4:COPD without exacerbation; 5:Hypertension; 6:Diabetes mellitus; 7:Depression; 8:Chronic hypoxemic respiratory failure; 9:Obese; 10:Smoker; 11:On deep vein thrombosis (DVT) prophylaxis Condition at Discharge: Improved ALIYA MOORE has been given the following [...] With: Address: When: BREA JJ [address], [place] [phone] Business (1) Within 1 week Comments: A voice message is left with this office with your information so they can call you for a follow up appiontment. Please call them if you do not hear from them in a few days. Thank you. With: Address: When: Ezekiel Christian [facility], [address] [place] [address] 06/28/2023 11:00 AM In the event that this physician does not participate in your insurance network, please consult with your insurance company to find a nearby participating provider. Type Location Start [facility] ONC Office Visit [facility] ([facility]) [facility] 06/28/2023 11:00 AM 06/28/2023 11:45 AM Confirmed [...] ____ fluticasone nasal (fluticasone Nasal 0.05 mg/inh [place]) 2 Sprays Nasal Inhalation every day. each [...] Dose: ____ potassi (more content not included)... 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 Pt's will transport. Pt has POC here to go home on O2. CRM to follow. Eliquis $0. Pt aware. [facility] Comment on above: Result Comment: Elec tronically Signed By: Marcia Montgomery\Date and Time Signed: 06/17/23 09:44 EDT Monitor Recordon 06-17-2023 Monitor Record [id number]# 1.00CD:127 [facility] Monitor Record [id number]# 1.00CD:127 [facility] Monitor Record [id number]# 1.00CD:127 [facility] Monitor Record [id number]# 1.00CD:127 Normal [facility] Patient Education - Texton 0 06-17-2023 Patient Education - Text Normal [facility] Progress Note-Nurseon 2022 Progress Note-Nurse This RN cannot complete the Medication Reconciliation as to the fact that the Patient cannot recall the medications she is taking at home. The list will be available in the morning once the patients will be here in the hospital on 06/17/2023. Dr. Drummond was informed about this matter. On going care provided. Normal [facility] Troponin 6 Hr.on 06-17-2023 Troponin I.cardiac [Mass/Vol] 5.50 pg/mL Low 10.10-27.10 [facility] Comment on above: Result Comment: The 95% CI (Confidence Interval) PPV (Positive Predictive Value) for myocardial infarction in females is 38 pg/mL, in males 51 pg/mL. The results should be used in conjunction with clinical conditions of myocardial infarction. (Access High Sensitivity Troponin I Instructions For Use, Sverve, May 2018) Performed By: #### 1 [id number] ####[facility] [address] [place] [address] Troponin 9 Hr.on 06-17-2023 Troponin I.cardiac [Mass/Vol] 5.20 pg/mL Low 10.10-27.10 [facility] Comment on above: Result Comment: The 95% CI (Confidence Interval) PPV (Positive Predictive Value) for myocardial infarction in females is 38 pg/mL, in males 51 pg/mL. The results should be used in conjunction with clinical conditions of myocardial infarction. (Access High Sensitivity Troponin I Instructions For Use, Sverve, May 2018) Performed By: #### 1 [id number] ####[facility] [address] [place] [address] US LE Venous Duplex Bilatera danni 06-17-2023 [...] MD Transcribed by: NOHEMY Technologist: ALISSA Barkley [facility] XR Chest Single Viewon 06-17 XR [...] mGy = na DAP = na Normal [facility] Auto DiffOrdered By: SYSTEM SYSTEM on 06-16-2023 Basophils/100 WBC (Bld) 0.3 % Normal 0.0-2.0 [facility] Comment on above: Order Comment: Order Added by Discern Expert. Performed By: #### 2 228836, 2849319, 97194831, 3600316, 09204347, 50847424 ####[place] [address] [place] [address] Basophils/Leukocytes Auto (Bld) [Pure # fraction] 0.0 E9/L Normal 0.0-0.2 [facility] Comment on above: Order Comment: Order Added by Discern Expert. Performed By: #### 2 573300, 5022129, 62977859, 3364165, 34968459, 63706977 ####[place] [address] [address] Eosinophils/100 WBC (Bld) 0.9 % Normal 0.0-8.0 [facility] Comment on above: Order Comment: Order Added by Discern Expert. Performed By: #### 2 853538, 4453167, 95810647, 8482682, 98266909, 54550036 ####[place] [address] [address] Eosinophils/Leukocytes Auto (Bld) [Pure # fraction] 0.1 E9/L Normal 0.0-0.5 [facility] Comment on above: Order Comment: Order Added by Quinton Expert. Performed By: #### 2 771566, 8467493, 55801223, 9282310, 64857506, 96066353 ####[place] [address] [address] Lymphocytes/100 WBC (Bld) 14.3 % Normal 14.0-50.0 [facility] Comment on above: Order Comment: Order Added by Quinton Expert. Performed By: #### 2 672474, 0429296, 23859124, 0885638, 23981467, 12502198 ####[address] [address] Lymphocytes/Leukocytes Auto (Bld) [Pure # fraction] 1.2 E9/L Normal 1.0-4.0 [facility] Comment on above: Order Comment: Order Added by Quinton Expert. Performed By: #### 2 126661, 9783936, 17073892, 1113193, 53277549, 63859580 ####[address] [address] Monocytes/100 WBC (Bld) 8.8 % Normal 4.0-14.0 [facility] Comment on above: Order Comment: Order Added by Quinton Expert. Performed By: #### 2 943689, 1478669, 47299247, 4851760, 12695883, 16836360 ####[address] [address] Monocytes/Leukocytes Auto (Bld) [Pure # fraction] 0.7 E9/L Normal 0.2-1.0 [facility] Comment on above: Order Comment: Order Added by Discern Expert. Performed By: #### 2 571058, 3271433, 55651531, 3651339, 35109984, 45891543 ####[address] [address] Neutrophils/100 WBC (Bld) 75.7 % High 36.0-75.0 [facility] Comment on above: Order Comment: Order Added by Discern Expert. Performed By: #### 2 230589, 6975616, 42854118, 4752492, 90037763, 67333809 ####[address] [address] Neutrophils/Leukocytes Auto (Bld) [Pure # fraction] 6.4 E9/L Normal 2.0-7.5 [facility] Comment on above: Order Comment: Order Added by Discern Expert. Performed By: #### 2 377355, 7696653, 87528330, 8501311, 37955814, 56158554 ####[address] [address] BMPOrdered By: SYSTEM SYSTEM on 06-16-2023 Creatinine [Mass/Vol] 0.8 mg/dL Normal 0.5-1.3 [facility] C Remisol Comment on above: Performed By: #### 2 636672, 1848607, 14090438, 4877330, 10754515, 90526958 ####[address] [address] Urea nitrogen [Mass/Vol] 16 mg/dL Normal 5-21 [facility] Remisol Comment on above: Performed By: #### 2 015069, 5029893, 55292676, 6172717, 51615968, 50452628 ####[facility] [address] [place] [address] Anion gap [Moles/Vol] 12 mmol/L Normal 6-16 [facility] C Remisol Comment on above: Performed By: #### 2 021765, 9634099, 36091305, 4594685, 26254664, 57789353 ####[facility] [address] [place] [address] Calcium [Mass/Vol] 9.9 mg/dL Normal 8.9-11.1 [facility] R emisol Comment on above: Performed By: #### 2 148770, 0086162, 53261083, 2500252, 30152565, 35252457 ####[facility] [address] [place] [address] Chloride [Moles/Vol] 101 mmol/L Normal 101-111 [facility] Remisol Comment on above: Performed By: #### 2 374663, 9914157, 11869750, 3511860, 30290294, 25520553 ####[facility] [address] [place] [address] CO2 [Moles/Vol] 27 mmol/L Normal 21-31 [facility] Wes debby Comment on above: Performed By: #### 2 107331, 3950438, 12574899, 2991327, 80913958, 65272175 ####[facility] [address] [place] [address] Glucose [Mass/Vol] 129 mg/dL Normal 55-199 [facility] R emisol Comment on above: Result Comment: If t his glucose result represents a fasting glucose, interpretation should refer to the following reference range: 55-99 mg/dL Performed By: #### 2 925027, 7012038, 75826414, 4128856, 44059406, 42711014 ####[facility] [address] [place] [address] Potassium [Moles/Vol] 3.9 mmol/L Normal 3.5-5.3 [facility] C Remisol Comment on above: Performed By: #### 2 414913, 4312378, 16792875, 9599741, 10483093, 96214059 ####[facility] [address] [place] [address] Sodium [Moles/Vol] 136 mmol/L Normal 135-145 [facility] R emisol Comment on above: Performed By: #### 2 796605, 0820783, 48884443, 9247596, 20944300, 38215977 ####[facility] [address] [place] [address] BMPon 06-16-2023 Urea nitrogen/Creatinine [Mass ratio] 20 No Units Normal 10-20 [facility] Comment on above: Performed By: #### 2 497582, 1744526, 42124733, 0905252, 15601536, 97869565 ####[address] [address] CBC w/ Auto DiffOrdered By: Yanet Davis on 06-16-2023 Erythrocyte distribution width (RBC) [Ratio] 14.8 % High 10.9-14.2 [facility] Comment on above: Performed By: #### 2 901932, 9631346, 87524637, 5972311, 63684774, 21847126 ####[address] [place] [address] Hematocrit (Bld) [Volume fraction] 40.0 % Normal 34.0-46.0 [facility] Comment on above: Performed By: #### 2 809306, 7018343, 40670935, 3024414, 91414710, 20409190 ####[address] [place] [address] Hemoglobin (Bld) [Mass/Vol] 13.5 g/dL Normal 12.0-16.0 [facility] Comment on above: Performed By: #### 2 529347, 4521599, 26572817, 4400371, 98543604, 72207973 ####[place] [address] [address] MCH (RBC) [Entitic mass] 29.6 pg Normal 27.0-34.0 [facility] Comment on above: Performed By: #### 2 394412, 6212571, 20573299, 0891086, 90948648, 09918283 ####Miguel A [address] [address] MCHC (RBC) [Mass/Vol] 33.8 g/dL Normal 31.4-36.0 [facility] C [facility] Comment on above: Performed By: #### 2 569596, 1276386, 60178999, 4823174, 24882072, 99058076 ####Miguel A [place] [address] MCV (RBC) [Entitic vol] 87.6 fL Normal 80.0-100.0 [facility] Comment on above: Performed By: #### 2 637683, 4895023, 80297770, 6323157, 08041271, 23440186 ####Miguel A [address] [address] Platelet mean volume (Bld) [Entitic vol] 10.5 fL Normal 6.4-10.8 [facility] Comment on above: Performed By: #### 2 982754, 6974773, 30904335, 1569939, 26625062, 46219240 ####Miguel A [address] [address] Platelets (Bld) [#/Vol] 172.0 E9/L Normal 150.0-500.0 [facility] Comment on above: Performed By: #### 2 274221, 0034439, 12987067, 8336048, 51018647, 62971255 ####Miguel A [address] [address] RBC (Bld) [#/Vol] 4.6 E12/L Normal 4.3-5.9 [facility] Comment on above: Performed By: #### 2 402428, 8288583, 75911351, 9151923, 06351309, 58605839 ####Miguel A [facility] [address] [place] [address] WBC corrected for nucl RBC Auto (Bld) [#/Vol] 8.4 E9/L Normal 4.0-11.0 [facility] Comment on above: Performed By: #### 2 146387, 0796235, 17121238, 4530847, 58793016, 18640460 ####Miguel A [facility] [address] [place] [address] CHEMISTRYOrdered By: SYSTEM SYSTEM on 06-16-2023 Troponin I.cardiac [Mass/Vol] 5.50 pg/mL Low 10.10 - 27.10 pg/mL [facility] Remisol Troponin I.cardiac [Mass/Vol] 5.30 pg/mL Low 10.10 - 27.10 pg/mL [facility] Remisol Urea nitrogen/Creatinine [Mass ratio] 20 mg/mg Normal 10 - 20 [facility] Remisol COAGULATIONOrdered By: David Chadwick on 06-16-2023 aPTT Coag (PPP) [Time] 31.8 s Normal 25.1 - 36.5 second(s) [facility] Auto Coag Fibrin D-dimer FEU (PPP) [Mass/Vol] 532 ng/mL FEU Invalid Interpretation Code 215 - 500 ng/mL FEU [facility] Auto Coag Comment on above: Result Comment: Resu lts Called To XOCHITL RAMIREZ By DAVID CHADWICK And Read Back For Confirmation On 06/16/2023 16:59:58 EDT Results Verified By Repeat Analysis PT Coag (PPP) [Time] 11.4 s Normal 9.4 - 1 2.5 second(s) [facility] Auto Coag CTA Cheston 06-16-2023 CTA Chest [...] 370 Contrast amount in ml's: 89 Normal [facility] Consent for Treatmenton 05-31 Consent for Treatment [id number]#1 .00CD:127 Normal [facility] D-Dimeron 06-16-2023 Fibrin D-dimer FEU (PPP) [Mass/Vol] 532 [id number] Abnormal 215-500 [facility] Comment on above: Result Comment: Resu [...] infections Liver cirrhosis Performed By: #### 2 749452 ####[facility] [address] [place] [id number] ED Clinical Summaryon 2022 ED Clinical Summary [address] [address] ED Clinical Summary Person Information Name: ALIYA MOORE Hilary/[facility] Age: 57 Years : 1965 Sex: Female Language: Yi PCP: BREA JJ CNP Marital Status: Visit Id: Visit Reason: Chest pain; MID STERNUM PAIN Speciality: Acuity: 2 Enc Type: Emergency Med Service: Emergency Arrival: 06/16/2023 15:45:03 Discharge: LOS: 000 06:14 Checkin: 06/16/2023 15:45:03 Checkout: 06/16/2023 21:59:01 Dispo Type: Admitted as IP to this [facility] EVENTS: Event Name Event Status [...] 21:04:33 Admit Request 06/16/2023 21:04:33 ADDRESS: [address] [place] [phone] PHYS DOC NOTES: MEDICAL INFORMATION: Prescriptions Given: PATIENT EDUCATION INFORMATION: Instructions: Follow up: DIAGNOSIS: 1:Chest pain; 2:Acute pulmonary embolism; 3:Sinus tachycardia; 4:COPD without exacerbation; 5:Hypertension; 6:Diabetes mellitus; 7:Depression; 8:Chronic hypoxemic respiratory failure; 9:Obese; 10:Smoker; 11:On deep vein thrombosis (DVT) prophylaxis [facility] ED Note-Nursingon 06-16-2023 ED Note-Nursing Per JUAN Reeves, patient okay to take at home Xanax medications. Pt took 1/2 of a .25mg tab. Normal [facility] ED Note-Physicianon 06-16-20 ED Note-Physician Basic Information Time Seen: Sandro HAYNES Leandro Val 06/16/2023 15:52 Chief Complaint CP started this afternoon while sitting down. states mid sternal CP 08/09. wears 3L O2 all the time. History [...] and Complexity of Problems Differential Diagnosis: [] [facility] Data External documents reviewed: [] My [...] vein thrombosis (DVT) prophylaxis (Z79.899: Other intermediate accountant (current) drug therapy) 4. COPD without exacerbation [...] Tab, 162 (more content not included)... Normal [facility] Comment on above: Result Comment: Elec tronically Signed By: Leandro Jo PA-C\.br\Date and Time Signed: 06/16/23 18:46 EDT\.br\Electronically Co-Signed By: Ramses Hair DO\.br\Date and Time Co-Signed: 06/16/23 19:30 EDT ED Patient Education Noteon 06-16-2023 ED Patient Education Note Normal [facility] ED Patient Summaryon 023 ED Patient Summary [place] [address] Patient Discharge Instructions Person Information Name: ALIYA MOORE Age: 57 Years Arrival Date: 06/16/2023 15:45:03 Discharge Diagnosis: 1:Chest pain; 2:Acute pulmonary embolism; 3:Sinus tachycardia; 4:COPD without exacerbation; 5:Hypertension; 6:Diabetes mellitus; 7:Depression; 8:Chronic hypoxemic respiratory failure; 9:Obese; 10:Smoker; 11:On deep vein thrombosis (DVT) prophylaxis Primary Care Physician: BREA JJ CNP Provider Information Primary Provider: Ramses Hair DO Advanced Legger Press Operator:Leandro Jo PA-C The exam and treatment you received in the Emergency Department were for an urgent problem and are not intended as complete care. It is important that you follow up with a doctor, nurse practitioner, or physician?s teachers assistant for ongoing care. If your symptoms [...] opioids can be used to help relieve jgwxijmz-dx-tjxpdf pain and are often prescribed following a [...] be struggling with addiction, tell your health healthcare architect and ask for guid (more content not included)... Normal [facility] Monitor Recordon 06-16-2023 Monitor Record [id number]# 1.00CD:127 Normal [facility] PT & PTTon 06-16-2023 aPTT Coag (PPP) [Time] 31.8 second(s) Normal 25.1-36.5 [facility] Comment on above: Result Comment: Para [...] the same coagulation reagent and instrumentation as [facility]. Currently there are no coagulation studies available worldwide for children to 14 days, and no normal ranges. Heparin therapeutic range (represented by Anti-Factor Xa activity of 0.2 - 0.4 U/mL) corresponds to PTT of 56.6 - 109.0 sec. Performed By: #### 2 668654, 4837042, 35245415, 6534922, 42554681, 10426972 ####[facility] [address] [place] [address] PT Coag (PPP) [Time] 11.4 second(s) Normal 9.4-12.5 [facility] Comment on above: Result Comment: 15 [...] the same coagulation reagent and instrumentation as [facility]. Currently there are no coagulation studies available worldwide for children to 14 days, and no normal ranges. Performed By: #### 2 243487, 2906043, 16406845, 2953343, 38145026, 65960871 ####[facility] [address] [place] [address] PT & PTTOrdered By: David sher on 06-16-2023 INR Coag (PPP) [Relative time] 1.0 {INR} Invalid Interpretation Code [facility] Auto Coag Comment on above: Result Comment: INR results are specifically intended to assess patients stabilized on long-term Anticoagulation therapy suggested INR?s ?Less Intensive Anticoagulation? 2.0 ? 3.0 Conventional Range 3.0 ? 4.5 Performed By: #### 2 960311, 7928458, 13063507, 6880094, 32871981, 91225477 ####[facility] [address] [place] [address] Troponin 0 Hr.on 06-16-2023 Troponin I.cardiac [Mass/Vol] 4.60 pg/mL Low 10.10-27.10 [facility] Comment on above: Result Comment: The 95% CI (Confidence Interval) PPV (Positive Predictive Value) for myocardial infarction in females is 38 pg/mL, in males 51 pg/mL. The results should be used in conjunction with clinical conditions of myocardial infarction. (Access High Sensitivity Troponin I Instructions For Use, Sverve, May 2018) Performed By: #### 2 740554, 5134887, 93978660, 7753776, 43395057, 65326231 ####[address] [place] [address] Troponin 3 Hr.on 06-16-2023 Troponin I.cardiac [Mass/Vol] 5.30 pg/mL Low 10.10-27.10 [facility] Comment on above: Result Comment: The 95% CI (Confidence Interval) PPV (Positive Predictive Value) for myocardial infarction in females is 38 pg/mL, in males 51 pg/mL. The results should be used in conjunction with clinical conditions of myocardial infarction. (Access High Sensitivity Troponin I Instructions For Use, Sverve, May 2018) Performed By: #### 1 [id number] ####[address] [place] [address] eGFROrdered By: SYSTEM CareSpotterE Btiques on 06-16-2023 GFR/1.73 sq M.predicted among non-blacks MDRD (S/P/Bld) [Vol rate/Area] 85 mL/min/1.73 m2 Normal >=59 [facility] Chem S Comment on above: Order Comment: Order added by Discern Expert. Result Comment: Boiler Reliner nita kidney disease could be indicated at eGFR's of less than 60 mL/min/1.73m2. Kidney failure is indicated at less than 15 mL/min/1.73m2. Performed By: #### 2 190348, 4684216, 44157091, 8136204, 30885533, 97724832 ####[place] [facility] [address] [place] [address] 36on 06-09-2023 36 Patient will need a follow up appointment for further refills Normal [facility] BNPon 02-23-2023 Natriuretic peptide B (Bld) [Mass/Vol] 114.0 pg/mL Normal <=900.0 [facility] Comment on above: Performed By: #### C MP, BNP, HSTROPN #### [facility] [address] [place] [address] Dr. Xiomy Lennon CBC AUTO DIFFon 02-23-2023 BASO # 0.0 103/ul Normal 0.0-0.1 [facility] Comment on above: Performed By: #### P T, PTT #### [facility] [address] [place] [address] Dr. Xiomy Lennon Basophils/100 WBC (Bld) 0.2 % Normal 0.2-2.0 [facility] Comment on above: Performed By: #### P T, PTT #### [facility] [address] [place] [address] Dr. Xiomy Lennon EO # 0.2 103/ul Normal 0.0-0.7 [facility] Comment on above: Performed By: #### P T, PTT #### [facility] [address] [place] [address] Dr. Xiomy Lennon Eosinophils/100 WBC (Bld) 1.8 % Normal 0.9-7.0 [facility] Comment on above: Performed By: #### P T, PTT #### [facility] [address] [place] [address] Dr. Xiomy Lennon Erythrocyte distribution width (RBC) [Ratio] 15.4 % Critically high 11.0-15.0 [facility] Comment on above: Performed By: #### P T, PTT #### [facility] [address] [place] [address] Dr. Xiomy Lennon Hematocrit (Bld) [Volume fraction] 37.6 % Normal 36.0-48.0 [facility] Comment on above: Performed By: #### P T, PTT #### [facility] [address] [place] [address] Dr. Xiomy Lennon Hemoglobin (Bld) [Mass/Vol] 12.2 g/dL Normal 12.0-16.0 [facility] Comment on above: Performed By: #### P T, PTT #### [facility] [address] [place] [address] Dr. Xiomy Lennon IG # 0.02 10e3/ul Normal 0.00-0.03 [facility] Comment on above: Performed By: #### P T, PTT #### [facility] [address] [place] [address] Dr. Xiomy Lennon IG % 0.2 % Normal 0.0-0.5 [facility] Comment on above: Performed By: #### P T, PTT #### [facility] [address] [place] [address] Dr. Xiomy Lennon LYMPH # 1.7 103/ul Normal 1.2-3.8 [facility] Comment on above: Performed By: #### P T, PTT #### [facility] [address] [place] [address] Dr. Xiomy Lennon Lymphocytes/100 WBC (Bld) 17.0 % Critically low 20.5-60.0 [facility] Comment on above: Performed By: #### P T, PTT #### [facility] [address] [place] [address] Dr. Xiomy Lennon MANUAL DIFF REQ NO Normal [facility] Comment on above: Performed By: #### P T, PTT #### [facility] [address] [place] [address] Dr. Xiomy Lennon MCH (RBC) [Entitic mass] 28.6 pg Normal 26.7-34.0 [facility] Comment on above: Performed By: #### P T, PTT #### [facility] [address] [place] [address] Dr. Xiomy Lennon MCHC (RBC) [Mass/Vol] 32.4 g/dL Normal 29.9-35.2 [facility] Comment on above: Performed By: #### P T, PTT #### [facility] [address] [place] [address] Dr. Xiomy Lennon MCV (RBC) [Entitic vol] 88.3 fL Normal 81.0-99.0 [facility] Comment on above: Performed By: #### P T, PTT #### [facility] [address] [place] [address] Dr. Xiomy Lennon MONO # 0.7 103/ul Normal 0.3-0.8 [facility] Comment on above: Performed By: #### P T, PTT #### [facility] [address] [place] [address] Dr. Xiomy Lennon Monocytes/100 WBC (Bld) 7.3 % Normal 1.7-12.0 [facility] Comment on above: Performed By: #### P T, PTT #### [facility] [address] [place] [address] Dr. Xiomy Lennon NEUT # 7.2 103/ul Critically high 1.4-6.5 [facility] Comment on above: Performed By: #### P T, PTT #### [facility] [address] [place] [address] Dr. Xiomy Lennon Neutrophils/100 WBC (Bld) 73.5 % Normal 43.0-75.0 [facility] Comment on above: Performed By: #### P T, PTT #### [facility] [address] [place] [address] Dr. Xiomy Lennon Platelet mean volume (Bld) [Entitic vol] 11.5 fL Normal 9.5-13.5 [facility] Comment on above: Performed By: #### P T, PTT #### [facility] [address] [place] [address] Dr. Xiomy Lennon PLT 197 103/ul Normal 150-450 [facility] Comment on above: Performed By: #### P T, PTT #### [facility] [address] [place] [address] Dr. Xiomy Lennon RBC 4.26 106/ul Normal 4.20-5.40 [facility] Comment on above: Performed By: #### P T, PTT #### [facility] [address] [place] [address] Dr. Xiomy Lennon WBC 9.7 103/ul Normal 4.0-11.0 [facility] Comment on above: Performed By: #### P T, PTT #### [facility] [address] [place] [address] Dr. Xiomy Lennon LACTATE/LACTIC ACIDon 2022 Lactate [Moles/Vol] 0.7 mmol/L Normal 0.4-2.0 [facility] Comment on above: Performed By: #### P T, PTT #### [facility] [address] [place] [address] Dr. Xiomy Lennon PROF 14(COMP METB)on 023 Albumin [Mass/Vol] 3.3 g/dL Critically low 3.4-5.0 [facility] Comment on above: Performed By: #### C MP, BNP, HSTROPN #### [facility] [address] [place] [address] Dr. Xiomy Lennon Albumin/Globulin [Mass ratio] 0.7 {ratio} Normal [facility] Comment on above: Performed By: #### C MP, BNP, HSTROPN #### [facility] [address] [place] [address] Dr. Xiomy Lennon ALP [Catalytic activity/Vol] 89 U/L Normal 46-116 [facility] Comment on above: Performed By: #### C MP, BNP, HSTROPN #### [facility] [address] [place] [address] Dr. Xiomy Lennon ALT [Catalytic activity/Vol] 34 U/L Normal 14-59 [facility] Comment on above: Performed By: #### C MP, BNP, HSTROPN #### [facility] [address] [place] [address] Dr. Xiomy Lennon Anion gap [Moles/Vol] 10.5 mmol/L Normal [facility] Comment on above: Performed By: #### C MP, BNP, HSTROPN #### [facility] [address] [address] [address] Xiomy Lennon AST [Catalytic activity/Vol] 22 U/L Normal 15-37 [facility] Comment on above: Performed By: #### C MP, BNP, HSTROPN #### [facility] [address] [address] [address] Xiomy Lennon Bilirubin [Mass/Vol] 0.3 mg/dL Normal 0.2-1.0 [facility] Comment on above: Performed By: #### C MP, BNP, HSTROPN #### [facility] [address] [place] [address] Dr. Xiomy Lennon Calcium [Mass/Vol] 9.4 mg/dL Normal 8.5-10.1 [facility] Comment on above: Performed By: #### C MP, BNP, HSTROPN #### [facility] [address] [address] [address] Xiomy Lennon Chloride [Moles/Vol] 99 mmol/L Normal 98-107 [facility] Comment on above: Performed By: #### C MP, BNP, HSTROPN #### [facility] [address] [place] [address] Dr. Xiomy Lennon CO2 [Moles/Vol] 31.6 mmol/L Normal 21.0-32.0 [facility] Comment on above: Performed By: #### C MP, BNP, HSTROPN #### [facility] [address] [place] [address] Dr. Xiomy Lennon Creatinine [Mass/Vol] 0.86 mg/dL Normal 0.55-1.02 [facility] Comment on above: Performed By: #### C MP, BNP, HSTROPN #### [facility] [address] [place] [address] Dr. Xiomy Lennon EGFR-AF CITIZEN [place] >60 Normal >=60 [facility] Comment on above: Performed By: #### C MP, BNP, HSTROPN #### [facility] [address] [address] [address] Xiomy Lennon EGFR-NON AF CITIZEN OF [place] >60 Normal >=60 [facility] Comment on above: Performed By: #### C MP, BNP, HSTROPN #### [facility] [address] [address] [address] Xiomy Lennon Globulin (S) [Mass/Vol] 4.6 g/dL Normal [facility] Comment on above: Performed By: #### C MP, BNP, HSTROPN #### [facility] [address] [address] [address] Xiomy Lennon Glucose [Mass/Vol] 133 mg/dL Critically high 74-106 [facility] Comment on above: Performed By: #### C MP, BNP, HSTROPN #### [facility] [address] [place] [address] Dr. Xiomy Lennon Potassium [Moles/Vol] 4.1 mmol/L Normal 3.5-5.1 [facility] Comment on above: Performed By: #### C MP, BNP, HSTROPN #### [facility] [address] [address] [address] Xiomy Lennon Protein [Mass/Vol] 7.9 g/dL Normal 6.4-8.2 [facility] Comment on above: Performed By: #### C MP, BNP, HSTROPN #### [facility] [address] [address] [address] Xiomy Lennon Sodium [Moles/Vol] 137 mmol/L Normal 136-145 [facility] Comment on above: Performed By: #### C MP, BNP, HSTROPN #### [facility] [address] [address] [address] Xiomy Lennon Urea nitrogen [Mass/Vol] 16.0 mg/dL Normal 7.0-18.0 [facility] Comment on above: Performed By: #### C MP, BNP, HSTROPN #### [facility] [address] [address] [address] Xiomy Lennon Urea nitrogen/Creatinine [Mass ratio] 18.6 mg/mg Normal [facility] Comment on above: Performed By: #### C MP, BNP, HSTROPN #### [facility] [address] [place] [address] Dr. Xiomy Lennon PROTIMEon 02-23-2023 INR Coag (PPP) [Relative time] 0.95 {INR} Normal [facility] Comment on above: Performed By: #### P TT, PT #### [facility] [address] [place] [address] Dr. Xiomy eLnnon INR GUIDELINES SEE BELOW Normal [facility] Comment on above: Result Comment: NIALL RED INR: 2.0 - 3.0 CONDITIONS NOT LISTED BELOW 2.5 - 3.5 FOR PROSTHETIC HEART VALVE REPLACEMENT 2.5 - 3.5 RECURRENT THROMBOSIS Performed By: #### P TT, PT #### [facility] [address] [place] [address] Dr. Xiomy Lennon PT Coag (PPP) [Time] 10.1 s Normal 9.0-11.6 [facility] Comment on above: Performed By: #### P TT, PT #### [facility] [address] [place] [address] Dr. Xiomy Lennon PTTon 02-23-2023 aPTT Coag (Bld) [Time] 27.2 s Normal 22.3-36.2 [facility] Comment on above: Performed By: #### P TT, PT #### [facility] [address] [place] [address] Dr. Xiomy Lennon TROPONIN, HIGH SENSITIVITYon 02-23-2023 HSTROP 6.2 pg/mL Normal 4.0-51.3 [facility] Comment on above: Result Comment: CUT- OFF POINTS HAVE BEEN ESTABLISHED BASED ON THE FOURTH UNIVERSAL DEFINITIONS OF MYOCARDIAL INFARCTION. THE UPPER REFERENCE LIMIT (URL) OF TROPONIN, DEFINED THE 99TH PERCENTILE OF cTnI DISTRIBUTION IN A REFERENCE POPULATION, HAS BEEN CONFIRMED THE DECISION THRESHOLD FOR DE DIAGNOSIS. Performed By: #### C MP, BNP, HSTROPN #### [facility] [address] [place] [address] Dr. Xiomy Lennon XR CHEST 1 Von [...] by: JUSTINE MARES Date: 2023-02-23 19:05 Normal [facility] HEMOGLOBINon 02-01-2023 Hemoglobin (Bld) [Mass/Vol] 13.0 g/dL Normal 12.0-16.0 [facility] Comment on above: Performed By: #### H GB #### [facility] [address] [place] [address] Dr. Xiomy Lennon PULMONARY FUNCTION TESTon PULMONARY [...] ambulation/activity. 3. Clinical correlation required. Normal [facility] CT LUNG CANCER SCREENINGon 0 01-12-2023 [...] by: MIGUEL MEDEROS Date: 2023-01-12 14:10 Normal [facility] GLYCOHEMOGLOBIN A1Con 2022 ADA RECOMMENDATION SEE BELOW Normal [facility] Comment on above: Result Comment: ADA RECOMMENDED LIMIT 4.0 - 6.0 ADA THERAPEUTIC TARGET < 7.0 ACTION SUGGESTED > 7.0 Performed By: #### A 1C #### [facility] [address] [address] [address] Xiomy Lennon Glucose [Mass/Vol] 111 mg/dL Normal [facility] Comment on above: Performed By: #### A 1C #### [facility] [address] [address] [address] Xiomy Lennon HbA1c (Bld) [Mass fraction] 5.5 % Normal 4.5-6.2 [facility] Comment on above: Performed By: #### A 1C #### [facility] [address] [address] [address] Xiomy Lennon PROF CHEM 8 (BAS METB)on Anion gap [Moles/Vol] 12.0 mmol/L Normal [facility] Comment on above: Performed By: #### P T, PTT #### [facility] [address] [address] [address] Xiomy Lennon Calcium [Mass/Vol] 10.0 mg/dL Normal 8.5-10.1 [facility] Comment on above: Performed By: #### P T, PTT #### [facility] [address] [address] [address] Xiomy Lennon Chloride [Moles/Vol] 102 mmol/L Normal 98-107 [facility] Comment on above: Performed By: #### P T, PTT #### [facility] [address] [address] [address] Xiomy Lennon CO2 [Moles/Vol] 30.4 mmol/L Normal 21.0-32.0 [facility] Comment on above: Performed By: #### P T, PTT #### [facility] [address] [address] [address] Xiomy Lennon Creatinine [Mass/Vol] 0.79 mg/dL Normal 0.55-1.02 [facility] Comment on above: Performed By: #### P T, PTT #### [facility] [address] [address] [address] Xiomy Lennon EGFR-AF CITIZ[place] >60 Normal >=60 [facility] Comment on above: Performed By: #### P T, PTT #### [facility] [address] [address] [address] Xiomy Lennon EGFR-NON AF CITIZEN [place] >60 Normal >=60 [facility] Comment on above: Performed By: #### P T, PTT #### [facility] [address] [address] [address] Xiomy Lennon Glucose [Mass/Vol] 147 mg/dL Critically high 74-106 [facility] Comment on above: Performed By: #### P T, PTT #### [facility] [address] [address] [address] Xiomy Lennon Potassium [Moles/Vol] 4.4 mmol/L Normal 3.5-5.1 [facility] Comment on above: Performed By: #### P T, PTT #### [facility] [address] [address] [address] Xiomy Lennon Sodium [Moles/Vol] 140 mmol/L Normal 136-145 [facility] Comment on above: Performed By: #### P T, PTT #### [facility] [address] [address] [address] Xiomy Lennon Urea nitrogen [Mass/Vol] 18.0 mg/dL Normal 7.0-18.0 [facility] Comment on above: Performed By: #### P T, PTT #### [facility] [address] [address] [address] Xiomy Lennon Urea nitrogen/Creatinine [Mass ratio] 22.8 mg/mg Normal [facility] Comment on above: Performed By: #### P T, PTT #### [facility] [address] [address] [address] Xiomy eLnnon Office Visiton 12-24-2022 Follow-up visit [id number] Aliya Moore 1965 F Date Provider Department Center 12/24/2022 TOSHIA OLIVARES [facility] Family History Problem Relation Age of Onset Coronary artery disease Other Pulmonary embolism Other Deep vein thrombosis Other Family Status - Relation Status Age at Other Level of Service:81980 SD OFFICE/OUTPATIENT ESTABLISHED MOD MDM 30-39 MIN Reason for Visit and Comments: Hypertension [354111] Shortness of Breath [376948] Normal [facility] THEOPHYLLINEon 11-04-2022 THEOPHYLLINE 2.1 ug/mL Critically low 10.0-20.0 [facility] Comment on above: Performed By: #### T HERBERT #### [facility] [address] [address] [address] Xiomy Lennon GLYCOHEMOGLOBIN A1Con 2021 ADA RECOMMENDATION SEE BELOW Normal [facility] Comment on above: Result Comment: ADA RECOMMENDED LIMIT 4.0 - 6.0 ADA THERAPEUTIC TARGET < 7.0 ACTION SUGGESTED > 7.0 Performed By: #### P T, PTT #### [facility] [address] [address] [address] Xiomy Lennon Glucose [Mass/Vol] 120 mg/dL Normal [facility] Comment on above: Performed By: #### P T, PTT #### [facility] [address] [address] [address] Xiomy Lennon HbA1c (Bld) [Mass fraction] 5.8 % Normal 4.5-6.2 [facility] Comment on above: Performed By: #### P T, PTT #### [facility] [address] [address] [address] Xiomy Lennon LIPID PROFILEon 07-28-2022 CHOL-HDL RATIO NORM SEE BELOW Normal [facility] Comment on above: Result Comment: 3.3 - 4.4 LOW RISK 4.4 - 7.1 AVERAGE RISK 7.1 - 11.0 MODERATE RISK >11.0 HIGH RISK Performed By: #### P T, PTT #### [facility] [address] [address] [address] Xiomy Lennon Cholesterol [Mass/Vol] 135 mg/dL Normal <=200 Th [facility] Comment on above: Performed By: #### P T, PTT #### [facility] [address] [address] [address] Xiomy Lennon Cholesterol in HDL [Mass/Vol] 77 mg/dL Critically high 40-60 [facility] Comment on above: Performed By: #### P T, PTT #### [facility] [address] [address] [address] Xiomy Lennon Cholesterol in LDL [Mass/Vol] 44.6 mg/dL Normal [facility] Comment on above: Performed By: #### P T, PTT #### [facility] [address] [address] [address] Xiomy Lennon Cholesterol.total/Chol esterol in HDL [Mass ratio] 1.8 {ratio} Normal [facility] Comment on above: Performed By: #### P T, PTT #### [facility] [address] [address] [address] Xiomy Lennon HDL NORMAL > or = 60 mg/dl - LO W CARDIOVASCULAR RISK <40 mg/dl - HIGH CARDIOVASCULAR RISK Normal [facility] Comment on above: Performed By: #### P T, PTT #### [facility] [address] [address] [address] Xiomy Lennon LDL CALC NORMAL SEE BELOW Normal [facility] Comment on above: Result Comment: <100 mg/dl OPTIMAL 100 - 129 mg/dl NEAR OR ABOVE OPTIMAL 130 - 159 mg/dl BORDERLINE HIGH 160 - 189 mg/dl HIGH >190 mg/dl VERY HIGH Performed By: #### P T, PTT #### [facility] [address] [place] [address] Dr. Xiomy Lennon Triglyceride [Mass/Vol] 67 mg/dL Normal <=150 [facility] Comment on above: Performed By: #### P T, PTT #### [facility] [address] [place] [address] Dr. Xiomy Lennon VLDL CALC 13.4 mg/dL Normal [facility] Comment on above: Performed By: #### P T, PTT #### [facility] [address] [place] [address] Dr. Xiomy Lennon PROF CHEM 8 (BAS METB)on Anion gap [Moles/Vol] 8.9 mmol/L Normal [facility] Comment on above: Performed By: #### P T, PTT #### [facility] [address] [place] [address] Dr. Xiomy Lennon Calcium [Mass/Vol] 9.7 mg/dL Normal 8.5-10.1 [facility] Comment on above: Performed By: #### P T, PTT #### [facility] [address] [place] [address] Dr. Xiomy Lennon Chloride [Moles/Vol] 99 mmol/L Normal 98-107 [facility] Comment on above: Performed By: #### P T, PTT #### [facility] [address] [place] [address] Dr. Xiomy Lennon CO2 [Moles/Vol] 32.0 mmol/L Normal 21.0-32.0 [facility] Comment on above: Performed By: #### P T, PTT #### [facility] [address] [place] [address] Dr. Xiomy Lennon Creatinine [Mass/Vol] 0.78 mg/dL Normal 0.55-1.02 [facility] Comment on above: Performed By: #### P T, PTT #### [facility] [address] [address] [address] Xiomy Lennon EGFR-AF [place] >60 Normal >=60 [facility] Comment on above: Performed By: #### P T, PTT #### [facility] [address] [place] [address] Dr. Xiomy Lennon EGFR-NON AF CITIZ[place] >60 Normal >=60 [facility] Comment on above: Performed By: #### P T, PTT #### [facility] [address] [address] [address] Xiomy Lennon Glucose [Mass/Vol] 111 mg/dL Critically high 74-106 [facility] Comment on above: Performed By: #### P T, PTT #### [facility] [address] [address] [address] Xiomy Lennon Potassium [Moles/Vol] 3.9 mmol/L Normal 3.5-5.1 [facility] Comment on above: Performed By: #### P T, PTT #### [facility] [address] [place] [address] Dr. Xiomy Lennon Sodium [Moles/Vol] 136 mmol/L Normal 136-145 [facility] Comment on above: Performed By: #### P T, PTT #### [facility] [address] [place] [address] Dr. Xiomy Lennon Urea nitrogen [Mass/Vol] 10.0 mg/dL Normal 7.0-18.0 [facility] Comment on above: Performed By: #### P T, PTT #### [facility] [address] [place] [address] Dr. Xiomy Lennon Urea nitrogen/Creatinine [Mass ratio] 12.8 mg/mg Normal [facility] Comment on above: Performed By: #### P T, PTT #### [facility] [address] [place] [address] Dr. 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 FINDINGS: [...] MD on 04/30/2022 at 10:06 Normal [facility] CBC AUTO DIFFon 03-26-2022 BASO # 0.0 103/ul Normal 0.0-0.1 [facility] Comment on above: Performed By: #### P T, PTT #### [facility] [address] [address] [address] Xiomy Lennon Basophils/100 WBC (Bld) 0.2 % Normal 0.2-2.0 [facility] Comment on above: Performed By: #### P T, PTT #### [facility] [address] [address] [address] Xiomy Lennon EO # 0.2 103/ul Normal 0.0-0.7 [facility] Comment on above: Performed By: #### P T, PTT #### [facility] [address] [address] [address] Xiomy Lennon Eosinophils/100 WBC (Bld) 1.7 % Normal 0.9-7.0 [facility] Comment on above: Performed By: #### P T, PTT #### [facility] [address] [place] [address] Dr. Xiomy Lennon Erythrocyte distribution width (RBC) [Ratio] 15.6 % Critically high 11.0-15.0 [facility] Comment on above: Performed By: #### P T, PTT #### [facility] [address] [place] [address] Dr. Xiomy Lennon Hematocrit (Bld) [Volume fraction] 43.4 % Normal 36.0-48.0 [facility] Comment on above: Performed By: #### P T, PTT #### [facility] [address] [place] [address] Dr. Xiomy Lennon Hemoglobin (Bld) [Mass/Vol] 14.0 g/dL Normal 12.0-16.0 [facility] Comment on above: Performed By: #### P T, PTT #### [facility] [address] [place] [address] Dr. Xiomy Lennon IG # 0.04 10e3/ul Critically high 0.00-0.03 [facility] Comment on above: Performed By: #### P T, PTT #### [facility] [address] [place] [address] Dr. Xiomy Lennon IG % 0.4 % Normal 0.0-0.5 [facility] Comment on above: Performed By: #### P T, PTT #### [facility] [address] [place] [address] Dr. Xiomy Lennon LYMPH # 1.2 103/ul Normal 1.2-3.8 [facility] Comment on above: Performed By: #### P T, PTT #### [facility] [address] [place] [address] Dr. Xiomy Lennon Lymphocytes/100 WBC (Bld) 11.4 % Critically low 20.5-60.0 [facility] Comment on above: Performed By: #### P T, PTT #### [facility] [address] [place] [address] Dr. Xiomy Lennon MANUAL DIFF REQ NO Normal [facility] Comment on above: Performed By: #### P T, PTT #### [facility] [address] [address] [address] Xiomy Lennon MCH (RBC) [Entitic mass] 29.7 pg Normal 26.7-34.0 [facility] Comment on above: Performed By: #### P T, PTT #### [facility] [address] [place] [address] Dr. Xiomy Lennon MCHC (RBC) [Mass/Vol] 32.3 g/dL Normal 29.9-35.2 [facility] Comment on above: Performed By: #### P T, PTT #### [facility] [address] [place] [address] Dr. Xiomy Lennon MCV (RBC) [Entitic vol] 92.1 fL Normal 81.0-99.0 [facility] Comment on above: Performed By: #### P T, PTT #### [facility] [address] [place] [address] Dr. Xiomy Lennon MONO # 0.8 103/ul Normal 0.3-0.8 [facility] Comment on above: Performed By: #### P T, PTT #### [facility] [address] [place] [address] Dr. Xiomy Lennon Monocytes/100 WBC (Bld) 7.9 % Normal 1.7-12.0 [facility] Comment on above: Performed By: #### P T, PTT #### [facility] [address] [place] [address] Dr. Xiomy Lennon NEUT # 8.3 103/ul Critically high 1.4-6.5 [facility] Comment on above: Performed By: #### P T, PTT #### [facility] [address] [place] [address] Dr. Xiomy Lennon Neutrophils/100 WBC (Bld) 78.4 % Critically high 43.0-75.0 [facility] Comment on above: Performed By: #### P T, PTT #### [facility] [address] [place] [address] Dr. Xiomy Lennon Platelet mean volume (Bld) [Entitic vol] 11.0 fL Normal 9.5-13.5 [facility] Comment on above: Performed By: #### P T, PTT #### [facility] [address] [place] [address] Dr. Xiomy Lennon PLT 196 103/ul Normal 150-450 [facility] Comment on above: Performed By: #### P T, PTT #### [facility] [address] [place] [address] Dr. Xiomy Lennon RBC 4.71 106/ul Normal 4.20-5.40 [facility] Comment on above: Performed By: #### P T, PTT #### [facility] [address] [place] [address] Dr. Xiomy Lennon WBC 10.6 103/ul Normal 4.0-11.0 [facility] Comment on above: Performed By: #### P T, PTT #### [facility] [address] [place] [address] Dr. Xiomy Lennon LIPASEon 03-26-2022 Lipase [Catalytic activity/Vol] 92.0 U/L Normal 73.0-393.0 [facility] Comment on above: Performed By: #### P T, PTT #### [facility] [address] [place] [address] Dr. Xiomy Lennon PROF 14(COMP METB)on 022 Albumin [Mass/Vol] 3.6 g/dL Normal 3.4-5.0 [facility] Comment on above: Performed By: #### P T, PTT #### [facility] [address] [place] [address] Dr. Xiomy Lennon Albumin/Globulin [Mass ratio] 0.7 {ratio} Normal [facility] Comment on above: Performed By: #### P T, PTT #### [facility] [address] [place] [address] Dr. Xiomy Lennon ALP [Catalytic activity/Vol] 78 U/L Normal 46-116 [facility] Comment on above: Performed By: #### P T, PTT #### [facility] [address] [place] [address] Dr. Xiomy Lennon ALT [Catalytic activity/Vol] 25 U/L Normal 14-59 [facility] Comment on above: Performed By: #### P T, PTT #### [facility] [address] [place] [address] Dr. Xiomy Lennon Anion gap [Moles/Vol] 9.4 mmol/L Normal [facility] Comment on above: Performed By: #### P T, PTT #### [facility] [address] [place] [address] Dr. Xiomy Lennon AST [Catalytic activity/Vol] 19 U/L Normal 15-37 [facility] Comment on above: Performed By: #### P T, PTT #### [facility] [address] [place] [address] Dr. Xiomy Lennon Bilirubin [Mass/Vol] 0.3 mg/dL Normal 0.2-1.0 [facility] Comment on above: Performed By: #### P T, PTT #### [facility] [address] [place] [address] Dr. Xiomy Lennon Calcium [Mass/Vol] 9.9 mg/dL Normal 8.5-10.1 [facility] Comment on above: Performed By: #### P T, PTT #### [facility] [address] [place] [address] Dr. Xiomy Lennon Chloride [Moles/Vol] 96 mmol/L Critically low 98-107 [facility] Comment on above: Performed By: #### P T, PTT #### [facility] [address] [place] [address] Dr. Xiomy Lennon CO2 [Moles/Vol] 34.6 mmol/L Critically high 21.0-32.0 [facility] Comment on above: Performed By: #### P T, PTT #### [facility] [address] [place] [address] Dr. Xiomy Lennon Creatinine [Mass/Vol] 0.93 mg/dL Normal 0.55-1.02 [facility] Comment on above: Performed By: #### P T, PTT #### [facility] [address] [place] [address] Dr. Xiomy Lennon EGFR-AF CITIZEN [place] >60 Normal >=60 [facility] Comment on above: Performed By: #### P T, PTT #### [facility] [address] [address] [address] Xiomy Lennon EGFR-NON AF CITIZEN OF [place] >60 Normal >=60 [facility] Comment on above: Performed By: #### P T, PTT #### [facility] [address] [address] [address] Xiomy Lennon Globulin (S) [Mass/Vol] 5.0 g/dL Normal [facility] Comment on above: Performed By: #### P T, PTT #### [facility] [address] [address] [address] Xiomy Lennon Glucose [Mass/Vol] 139 mg/dL Critically high 74-106 [facility] Comment on above: Performed By: #### P T, PTT #### [facility] [address] [address] [address] Xiomy Lennon Potassium [Moles/Vol] 4.0 mmol/L Normal 3.5-5.1 [facility] Comment on above: Performed By: #### P T, PTT #### [facility] [address] [address] [address] Xiomy Lennon Protein [Mass/Vol] 8.6 g/dL Critically high 6.4-8.2 [facility] Comment on above: Performed By: #### P T, PTT #### [facility] [address] [address] [address] Xiomy Lennon Sodium [Moles/Vol] 136 mmol/L Normal 136-145 [facility] Comment on above: Performed By: #### P T, PTT #### [facility] [address] [address] [address] Xiomy Lennon Urea nitrogen [Mass/Vol] 19.0 mg/dL Critically high 7.0-18.0 [facility] Comment on above: Performed By: #### P T, PTT #### [facility] [address] [address] [address] Xiomy Lennon Urea nitrogen/Creatinine [Mass ratio] 20.4 mg/mg Normal [facility] Comment on above: Performed By: #### P T, PTT #### [facility] [address] [place] [address] Dr. Xiomy Lennon PROTIMEon 03-26-2022 INR Coag (PPP) [Relative time] 0.99 {INR} Normal [facility] Comment on above: Performed By: #### P T, PTT #### [facility] [address] [place] [address] Dr. Xiomy Lennon INR GUIDELINES SEE BELOW Normal [facility] Comment on above: Result Comment: NIALL RED INR: 2.0 - 3.0 CONDITIONS NOT LISTED BELOW 2.5 - 3.5 FOR PROSTHETIC HEART VALVE REPLACEMENT 2.5 - 3.5 RECURRENT THROMBOSIS Performed By: #### P T, PTT #### [facility] [address] [place] [address] Dr. Xiomy Lennon PT Coag (PPP) [Time] 10.7 s Normal 9.0-11.6 [facility] Comment on above: Performed By: #### P T, PTT #### [facility] [address] [place] [address] Dr. Xiomy Lennon PTTon 03-26-2022 aPTT Coag (Bld) [Time] 26.9 s Normal 22.3-36.2 [facility] Comment on above: Performed By: #### P T, PTT #### [facility] [address] [place] [address] Dr. Xiomy Lennon TROPONIN, HIGH SENSITIVITYon 03-26-2022 HSTROP 8.0 pg/mL Normal 4.0-51.3 [facility] Comment on above: Result Comment: CUT- OFF POINTS HAVE BEEN ESTABLISHED BASED ON THE FOURTH UNIVERSAL DEFINITIONS OF MYOCARDIAL INFARCTION. THE UPPER REFERENCE LIMIT (URL) OF TROPONIN, DEFINED THE 99TH PERCENTILE OF cTnI DISTRIBUTION IN A REFERENCE POPULATION, HAS BEEN CONFIRMED THE DECISION THRESHOLD FOR DE DIAGNOSIS. Performed By: #### P T, PTT #### [facility] [address] [place] [address] Dr. Xiomy Lennon US SINGLE QUAD RT [...] by: KENDY HERRERA Date: 2022-03-26 19:58 Normal [facility] Basic Metabolic Panelon 07-01 Calcium [Mass/Vol] 9.3 mg/dL Normal 8.2-10.2 [facility] Comment on above: Performed By: #### C MUNCIE 19 [facility], COVID-19 [place]DE[place], SOFIANEG #### [facility] [address] Chloride [Moles/Vol] 89 mmol/L Low 95-114 [facility] Comment on above: Performed By: #### C MUNCIE 19 [facility] [place], COVID-19 [place]DE[place], SOFIANEG #### [facility] [address] [id number] [facility] CO2 [Moles/Vol] 35.4 mmol/L High 22.0-30.0 [facility] Comment on above: Performed By: #### C MUNCIE 19 [facility] [place], COVID-19 VALDEMAR, SOFIANEG #### [facility] [address] [id number] [place] Creatinine [Mass/Vol] 0.81 mg/dL Normal 0.44-1.03 [facility] Comment on above: Performed By: #### C MUNCIE 19 [facility] [place], COVID-19 VALDEMAR, SOFIANEG #### [facility] [address] [phone] [place] Creatinine Clr Calc Pharmacy 107.64 [facility] Comment on above: Performed By: #### C MUNCIE 19 [facility] [place], COVID-19 VALDEMAR, SOFIANEG #### [facility] [address] Estimated GFR ( Hilary > 60 Normal [facility] Comment on above: Result Comment: GFR estimated reference range: According to KDOQI guidelines, <60 ml/min/1.73m2 is sufficient to diagnose a patient with chronic kidney disease. Performed By: #### C OVID 19 [facility] [place], COVID-19 VALDE[place], SOFIANEG #### [facility] [address] Estimated GFR (Non- Am > 60 Normal [facility] Comment on above: Performed By: #### C OVID 19 [facility] [place], COVID-19 VALDEMAR, SOFIANEG #### [facility] [address] Glucose [Mass/Vol] 94 mg/dL Normal 70-100 [facility] Comment on above: Result Comment: [place] Glucose Reference Range is dependent on time and content of last meal. Glucose of more than 200 mg/dL in a nonstressed, ambulatory subject supports the diagnosis of Diabetes Mellitus. ADA recommended reference range Performed By: #### C OVID 19 [facility] [place], COVID-19 VALDEMAR, SOFIANEG #### [address] Potassium Normal 3.5-5.1 [facility] Comment on above: Result Comment: Spec imen hemolyzed, redraw requested Performed By: #### C OVID 19 [facility] [place], COVID-19 VALDEMAR, SOFIANEG #### [facility] [address] Sodium [Moles/Vol] 135 mmol/L Low 136-146 [facility] Comment on above: Performed By: #### C OVID 19 [facility] [place], COVID-19 VALDEMAR, SOFIANEG #### [facility] [address] Urea nitrogen [Mass/Vol] 19 mg/dL Normal 9-23 [facility] Comment on above: Performed By: #### C OVID 19 [facility] [place], COVID-19 VALDEMAR, SOFIANEG #### [facility] [address] [place] [address] Complete Blood Count Auto Di ffon 07-14-2021 Basophils (Bld) [#/Vol] 0.0 10*3/uL Normal 0.0-0.2 [facility] Comment on above: Result Comment: PERF ORMED BY: [place] [address] PATHOLOGIST J2EE CONSULTANT OTILIA BAIRD M.D. Performed By: #### C BC, LACTIC, HS TROP, BMP #### [address] Basophils/100 WBC (Bld) 0.5 % Normal . [facility] Comment on above: Performed By: #### C BC, LACTIC, HS TROP, BMP #### [address] Eosinophils (Bld) [#/Vol] 0.1 10*3/uL Normal 0.0-0.45 [facility] Comment on above: Performed By: #### C BC, LACTIC, HS TROP, BMP #### [address] Eosinophils/100 WBC (Bld) 0.9 % Normal . [facility] Comment on above: Performed By: #### C BC, LACTIC, HS TROP, BMP #### [address] Erythrocyte distribution width (RBC) [Ratio] 18.2 % High 11.9-15.3 [facility] Comment on above: Performed By: #### C BC, LACTIC, HS TROP, BMP #### [address] Hematocrit (Bld) [Volume fraction] 41.6 % Normal 34.0-46.4 [facility] Comment on above: Performed By: #### C BC, LACTIC, HS TROP, BMP #### [address] Hemoglobin (Bld) [Mass/Vol] 13.8 g/dL Normal 11.8-15.4 [facility] Comment on above: Performed By: #### C BC, LACTIC, HS TROP, BMP #### [address] Lymphocytes (Bld) [#/Vol] 1.5 10*3/uL Normal 1.00-4.8 [facility] Comment on above: Performed By: #### C BC, LACTIC, HS TROP, BMP #### [address] Lymphocytes/100 WBC (Bld) 20.5 % Normal . [facility] Comment on above: Performed By: #### C BC, LACTIC, HS TROP, BMP #### [address] MCH (RBC) [Entitic mass] 29.0 pg Normal 24.7-34.3 [facility] Comment on above: Performed By: #### C BC, LACTIC, HS TROP, BMP #### [address] MCV (RBC) [Entitic vol] 87.8 fL Normal 80-100 [facility] Comment on above: Performed By: #### C BC, LACTIC, HS TROP, BMP #### [address] Mean Corpuscular HGB Conc 33.0 g/dL Normal 32.0-35.0 [facility] Comment on above: Performed By: #### C BC, LACTIC, HS TROP, BMP #### [address] Monocytes (Bld) [#/Vol] 0.8 10*3/uL Normal 0.0-0.8 [facility] Comment on above: Performed By: #### C BC, LACTIC, HS TROP, BMP #### [address] Monocytes/100 WBC (Bld) 11.4 % Normal . [facility] Comment on above: Performed By: #### C BC, LACTIC, HS TROP, BMP #### [address] Neutrophils (Bld) [#/Vol] 4.8 10*3/uL Normal 1.8-7.7 [facility] Comment on above: Performed By: #### C BC, LACTIC, HS TROP, BMP #### [facility] [address] Neutrophils/100 WBC (Bld) 66.7 % Normal . [facility] Comment on above: Performed By: #### C BC, LACTIC, HS TROP, BMP #### [place] [address] [place] Nucleated RBC/100 WBC (Bld) [Ratio] 0.1 % Normal 0-0.5 [facility] Comment on above: Performed By: #### C BC, LACTIC, HS TROP, BMP #### [address] Platelet mean volume (Bld) [Entitic vol] 9.5 fL Normal 6.3-10.7 [facility] Comment on above: Performed By: #### C BC, LACTIC, HS TROP, BMP #### [address] Platelets (Bld) [#/Vol] 153 10*3/uL Normal 150-450 [facility] Comment on above: Performed By: #### C BC, LACTIC, HS TROP, BMP #### [address] RBC (Bld) [#/Vol] 4.74 10*6/uL Normal 3.60-5.00 [facility] Comment on above: Performed By: #### C BC, LACTIC, HS TROP, BMP #### [place] [address] [place] WBC (Bld) [#/Vol] 7.1 10*3/uL Normal 4.5-11.0 [facility] Comment on above: Performed By: #### C BC, LACTIC, HS TROP, BMP #### [address] Glucose Poct Glucometerson 0 07-14-2021 Commemt1 Glu2: Cleaned Meter Normal [facility] Comment on above: Result Comment: PERF ORMED BY: [facility] [address] [place] [address] PATHOLOGIST J2EE CONSULTANT OTILIA BAIRD M.D. Performed By: #### C OVID 19 [facility] [place], COVID-19 VALDEMAR, SOFIANEG #### [facility] [address] [phone] [place] Glucose [Mass/Vol] 130 mg/dL Normal [facility] Comment on above: Result Comment: [place] om Glucose Reference Range is dependent on time and content of last meal. Glucose of more than 200 mg/dL in a nonstressed, ambulatory subject supports the diagnosis of Diabetes Mellitus. Performed By: #### C OVID 19 [facility] [place], COVID-19 VALDEMAR, SOFIANEG #### [facility] [address] [phone] [facility] Commemt1 Glu2: Cleaned Meter Normal [facility] Comment on above: Result Comment: PERF ORMED BY: [facility] [address] [place] [address] PATHOLOGIST J2EE CONSULTANT OTILIA BAIRD M.D. Performed By: #### C BC, LACTIC, HS TROP, BMP #### [address] [id number] [place] Glucose [Mass/Vol] 102 mg/dL Normal [facility] Comment on above: Result Comment: [place] om Glucose Reference Range is dependent on time and content of last meal. Glucose of more than 200 mg/dL in a nonstressed, ambulatory subject supports the diagnosis of Diabetes Mellitus. Performed By: #### C BC, LACTIC, HS TROP, BMP #### [facility] [address] [place], [place] [id number] [facility] Commemt1 Glu2: Cleaned Meter Normal [facility] Comment on above: Result Comment: PERF ORMED BY: [facility] [address] [place] [address] PATHOLOGIST J2EE CONSULTANT OTILIA BAIRD M.D. Performed By: #### C BC, LACTIC, HS TROP, BMP #### [facility] [address] Glucose [Mass/Vol] 130 mg/dL Normal [facility] Comment on above: Result Comment: [facility] Glucose Reference Range is dependent on time and content of last meal. Glucose of more than 200 mg/dL in a nonstressed, ambulatory subject supports the diagnosis of Diabetes Mellitus. Performed By: #### C BC, LACTIC, HS TROP, BMP #### [address] Magnesiumon 07-14-2021 Magnesium Normal 1.6-2.6 [facility] Comment on above: Result Comment: Spec imen hemolyzed, redraw requested PERFORMED BY: [place] [address] PATHOLOGIST J2EE CONSULTANT OTILIA BAIRD M.D. Performed By: #### C OVID 19 [facility] [place], COVID-19 VALDEMAR, SOFIANEG #### [address] Redraw Magnesiumon 1 Magnesium [Mass/Vol] 1.9 mg/dL Normal 1.6-2.6 [facility] Comment on above: Order Comment: Speci men hemolyzed, redraw requested Result Comment: PERF ORMED BY: [place] [address] PATHOLOGIST J2EE CONSULTANT OTILIA BAIRD M.D. Performed By: #### C OVID 19 [facility] [place], COVID-19 VALDEMAR, SOFIANEG #### [address] Redraw Potassiumon 1 Potassium [Moles/Vol] 3.7 mmol/L Normal 3.5-5.1 [facility] Comment on above: Order Comment: Speci men hemolyzed, redraw requested Performed By: #### C OVID 19 [facility] [place], COVID-19 VALDEMAR, SOFIANEG #### [address] Basic Metabolic Panelon 07-01 Calcium [Mass/Vol] 9.3 mg/dL Normal 8.2-10.2 [facility] Comment on above: Performed By: #### C BC, LACTIC, HS TROP, BMP #### [address] Chloride [Moles/Vol] 92 mmol/L Low 95-114 [facility] Comment on above: Performed By: #### C BC, LACTIC, HS TROP, BMP #### [address] CO2 [Moles/Vol] 37.7 mmol/L High 22.0-30.0 [facility] Comment on above: Performed By: #### C BC, LACTIC, HS TROP, BMP #### [address] Creatinine [Mass/Vol] 0.80 mg/dL Normal 0.44-1.03 [facility] Comment on above: Performed By: #### C BC, LACTIC, HS TROP, BMP #### [address] Creatinine Clr Calc Pharmacy 105.32 [facility] Comment on above: Result Comment: PERF ORMED BY: [place] [address] PATHOLOGIST J2EE CONSULTANT OTILIA BAIRD M.D. Performed By: #### C BC, LACTIC, HS TROP, BMP #### [address] Estimated GFR ( Hilary > 60 [facility] Comment on above: Result Comment: GFR estimated reference range: According to KDOQI guidelines, <60 ml/min/1.73m2 is sufficient to diagnose a patient with chronic kidney disease. Performed By: #### C BC, LACTIC, HS TROP, BMP #### [address] Estimated GFR (Non- Am > 60 [facility] Comment on above: Performed By: #### C BC, LACTIC, HS TROP, BMP #### [place] [address] [place] Glucose [Mass/Vol] 94 mg/dL Normal 70-100 [facility] Comment on above: Result Comment: [place] om Glucose Reference Range is dependent on time and content of last meal. Glucose of more than 200 mg/dL in a nonstressed, ambulatory subject supports the diagnosis of Diabetes Mellitus. ADA recommended reference range Performed By: #### C BC, LACTIC, HS TROP, BMP #### [facility] [address] Potassium [Moles/Vol] 3.6 mmol/L Normal 3.5-5.1 [facility] Comment on above: Performed By: #### C BC, LACTIC, HS TROP, BMP #### [facility] [address] Sodium [Moles/Vol] 139 mmol/L Normal 136-146 [facility] Comment on above: Performed By: #### C BC, LACTIC, HS TROP, BMP #### [facility] [address] Urea nitrogen [Mass/Vol] 18 mg/dL Normal 9-23 [facility] Comment on above: Performed By: #### C BC, LACTIC, HS TROP, BMP #### [address] Glucose Poct Glucometerson 0 07-13-2021 Commemt1 Glu2: Cleaned Meter Normal [facility] Comment on above: Result Comment: PERF ORMED BY: [place] [address] PATHOLOGIST J2EE CONSULTANT OTILIA BAIRD M.D. Performed By: #### C BC, LACTIC, HS TROP, BMP #### [facility] [address] Glucose [Mass/Vol] 180 mg/dL Normal [facility] Comment on above: Result Comment: [place] om Glucose Reference Range is dependent on time and content of last meal. Glucose of more than 200 mg/dL in a nonstressed, ambulatory subject supports the diagnosis of Diabetes Mellitus. Performed By: #### C BC, LACTIC, HS TROP, BMP #### [address] Commemt1 Glu2: Cleaned Meter Normal [facility] Comment on above: Result Comment: PERF ORMED BY: [place] [address] PATHOLOGIST J2EE CONSULTANT OTILIA BAIRD M.D. Performed By: #### C BC, LACTIC, HS TROP, BMP #### [place] [address] [place] Glucose [Mass/Vol] 128 mg/dL Normal [facility] Comment on above: Result Comment: [place] om Glucose Reference Range is dependent on time and content of last meal. Glucose of more than 200 mg/dL in a nonstressed, ambulatory subject supports the diagnosis of Diabetes Mellitus. Performed By: #### C BC, LACTIC, HS TROP, BMP #### [address] Glucose [Mass/Vol] 95 mg/dL Normal [facility] Comment on above: Result Comment: [place] om Glucose Reference Range is dependent on time and content of last meal. Glucose of more than 200 mg/dL in a nonstressed, ambulatory subject supports the diagnosis of Diabetes Mellitus. PERFORMED BY: [place] [address] PATHOLOGIST J2EE CONSULTANT OTILIA BAIRD M.D. Performed By: #### C BC, LACTIC, HS TROP, BMP #### [address] Basic Metabolic Panelon 07-01 Calcium [Mass/Vol] 9.3 mg/dL Normal 8.2-10.2 [facility] Comment on above: Performed By: #### C BC, LACTIC, HS TROP, BMP #### [place] [address] [place] Chloride [Moles/Vol] 86 mmol/L Low 95-114 [facility] Comment on above: Performed By: #### C BC, LACTIC, HS TROP, BMP #### [place] [address] [place] CO2 [Moles/Vol] 43.4 mmol/L High 22.0-30.0 [facility] Comment on above: Performed By: #### C BC, LACTIC, HS TROP, BMP #### [address] Creatinine [Mass/Vol] 0.86 mg/dL Normal 0.44-1.03 [facility] Comment on above: Performed By: #### C BC, LACTIC, HS TROP, BMP #### [address] Creatinine Clr Calc Pharmacy 103.59 [facility] Comment on above: Result Comment: PERF ORMED BY: [place] [address] PATHOLOGIST J2EE CONSULTANT OTILIA BAIRD M.D. Performed By: #### C BC, LACTIC, HS TROP, BMP #### [address] Estimated GFR ( Hilary > 60 [facility] Comment on above: Result Comment: GFR estimated reference range: According to KDOQI guidelines, <60 ml/min/1.73m2 is sufficient to diagnose a patient with chronic kidney disease. Performed By: #### C BC, LACTIC, HS TROP, BMP #### [address] Estimated GFR (Non- Am > 60 [facility] Comment on above: Performed By: #### C BC, LACTIC, HS TROP, BMP #### [address] Glucose [Mass/Vol] 94 mg/dL Normal 70-100 [facility] Comment on above: Result Comment: [place] om Glucose Reference Range is dependent on time and content of last meal. Glucose of more than 200 mg/dL in a nonstressed, ambulatory subject supports the diagnosis of Diabetes Mellitus. ADA recommended reference range Performed By: #### C BC, LACTIC, HS TROP, BMP #### [address] Potassium [Moles/Vol] 3.6 mmol/L Normal 3.5-5.1 [facility] Comment on above: Performed By: #### C BC, LACTIC, HS TROP, BMP #### [facility] [address] [place] [address] [place] Sodium [Moles/Vol] 139 mmol/L Normal 136-146 [facility] Comment on above: Performed By: #### C BC, LACTIC, HS TROP, BMP #### [facility] [address] [place] [address] [place] Urea nitrogen [Mass/Vol] 18 mg/dL Normal 9- [facility] Comment on above: Performed By: #### C BC, LACTIC, HS TROP, BMP #### [facility] [address] Glucose Poct Glucometerson 0 07-12-2021 Glucose [Mass/Vol] 138 mg/dL Normal [facility] Comment on above: Result Comment: [place] om Glucose Reference Range is dependent on time and content of last meal. Glucose of more than 200 mg/dL in a nonstressed, ambulatory subject supports the diagnosis of Diabetes Mellitus. PERFORMED BY: [place] [address] PATHOLOGIST J2EE CONSULTANT OTILIA BAIRD M.D. Performed By: #### C BC, LACTIC, HS TROP, BMP #### [address] Commemt1 Glu2: Cleaned Meter Normal [facility] Comment on above: Result Comment: PERF ORMED BY: [place] [address] PATHOLOGIST J2EE CONSULTANT OTILIA BAIRD M.D. Performed By: #### C BC, LACTIC, HS TROP, BMP #### [facility] [address] [place] [address] [place] Glucose [Mass/Vol] 255 mg/dL Normal [facility] Comment on above: Result Comment: [place] om Glucose Reference Range is dependent on time and content of last meal. Glucose of more than 200 mg/dL in a nonstressed, ambulatory subject supports the diagnosis of Diabetes Mellitus. Performed By: #### C BC, LACTIC, HS TROP, BMP #### [address] Commemt1 Glu2: Cleaned Meter [facility] Comment on above: Result Comment: PERF ORMED BY: [place] [address] PATHOLOGIST J2EE CONSULTANT OTILIA BAIRD M.D. Performed By: #### C BC, LACTIC, HS TROP, BMP #### [address] Glucose [Mass/Vol] 133 mg/dL Normal [facility] Comment on above: Result Comment: [place] om Glucose Reference Range is dependent on time and content of last meal. Glucose of more than 200 mg/dL in a nonstressed, ambulatory subject supports the diagnosis of Diabetes Mellitus. Performed By: #### C BC, LACTIC, HS TROP, BMP #### [address] Commemt1 Glu2: Cleaned Meter [facility] Comment on above: Result Comment: PERF ORMED BY: [place] [address] PATHOLOGIST J2EE CONSULTANT OTILIA BAIRD M.D. Performed By: #### C BC, LACTIC, HS TROP, BMP #### [address] Glucose [Mass/Vol] 100 mg/dL Normal [facility] Comment on above: Result Comment: [place] om Glucose Reference Range is dependent on time and content of last meal. Glucose of more than 200 mg/dL in a nonstressed, ambulatory subject supports the diagnosis of Diabetes Mellitus. Performed By: #### C BC, LACTIC, HS TROP, BMP #### [address] Basic Metabolic Panelon 07-01 Calcium [Mass/Vol] 9.5 mg/dL Normal 8.2-10.2 [facility] Comment on above: Performed By: #### C BC, LACTIC, HS TROP, BMP #### [address] [address] [place] [address] [place] Chloride [Moles/Vol] 85 mmol/L Low 95-114 [facility] Comment on above: Performed By: #### C BC, LACTIC, HS TROP, BMP #### [facility] [address] CO2 [Moles/Vol] 39.6 mmol/L High 22.0-30.0 [facility] Comment on above: Performed By: #### C BC, LACTIC, HS TROP, BMP #### [facility] [address] Creatinine [Mass/Vol] 0.99 mg/dL Normal 0.44-1.03 [facility] Comment on above: Performed By: #### C BC, LACTIC, HS TROP, BMP #### [facility] [address] Creatinine Clr Calc Pharmacy 89.99 [facility] Comment on above: Result Comment: PERF ORMED BY: [place] [address] PATHOLOGIST J2EE CONSULTANT OTILIA BAIRD M.D. Performed By: #### C BC, LACTIC, HS TROP, BMP #### [address] Estimated GFR ( Hilary > 60 [facility] Comment on above: Result Comment: GFR estimated reference range: According to KDOQI guidelines, <60 ml/min/1.73m2 is sufficient to diagnose a patient with chronic kidney disease. Performed By: #### C BC, LACTIC, HS TROP, BMP #### [facility] [address] Estimated GFR (Non- Am 58 [facility] Comment on above: Performed By: #### C BC, LACTIC, HS TROP, BMP #### [facility] [address] Glucose [Mass/Vol] 189 mg/dL High 70-100 [facility] Comment on above: Result Comment: [place] Glucose Reference Range is dependent on time and content of last meal. Glucose of more than 200 mg/dL in a nonstressed, ambulatory subject supports the diagnosis of Diabetes Mellitus. ADA recommended reference range Performed By: #### C BC, LACTIC, HS TROP, BMP #### [address] Potassium [Moles/Vol] 4.3 mmol/L Normal 3.5-5.1 [facility] Comment on above: Performed By: #### C BC, LACTIC, HS TROP, BMP #### [address] Sodium [Moles/Vol] 135 mmol/L Low 136-146 [facility] Comment on above: Performed By: #### C BC, LACTIC, HS TROP, BMP #### [address] Urea nitrogen [Mass/Vol] 21 mg/dL Normal 9-23 [facility] Comment on above: Performed By: #### C BC, LACTIC, HS TROP, BMP #### [address] Glucose Poct Glucometerson 0 07-11-2021 Commemt1 Glu2: Cleaned Meter [facility] Comment on above: Result Comment: PERF ORMED BY: [place] [address] PATHOLOGIST J2EE CONSULTANT OTILIA BAIRD M.D. Performed By: #### C BC, LACTIC, HS TROP, BMP #### [address] Glucose [Mass/Vol] 202 mg/dL Normal [facility] Comment on above: Result Comment: [place] Glucose Reference Range is dependent on time and content of last meal. Glucose of more than 200 mg/dL in a nonstressed, ambulatory subject supports the diagnosis of Diabetes Mellitus. Performed By: #### C BC, LACTIC, HS TROP, BMP #### [address] Commemt1 Glu2: Cleaned Meter Normal [facility] Comment on above: Result Comment: PERF ORMED BY: [address] [place] [address] PATHOLOGIST J2EE CONSULTANT OTILIA BAIRD M.D. Performed By: #### C BC, LACTIC, HS TROP, BMP #### [address] Glucose [Mass/Vol] 249 mg/dL Normal [facility] Comment on above: Result Comment: [place] om Glucose Reference Range is dependent on time and content of last meal. Glucose of more than 200 mg/dL in a nonstressed, ambulatory subject supports the diagnosis of Diabetes Mellitus. Performed By: #### C BC, LACTIC, HS TROP, BMP #### [address] Commemt1 Glu2: Cleaned Meter [facility] Comment on above: Result Comment: PERF ORMED BY: [place] [address] PATHOLOGIST J2EE CONSULTANT OTILIA BAIRD M.D. Performed By: #### C BC, LACTIC, HS TROP, BMP #### [place] [address] [place] Glucose [Mass/Vol] 141 mg/dL Normal [facility] Comment on above: Result Comment: [place] om Glucose Reference Range is dependent on time and content of last meal. Glucose of more than 200 mg/dL in a nonstressed, ambulatory subject supports the diagnosis of Diabetes Mellitus. Performed By: #### C BC, LACTIC, HS TROP, BMP #### [address] Commemt1 Glu2: Cleaned Meter Normal [facility] Comment on above: Result Comment: PERF ORMED BY: [place] [address] PATHOLOGIST J2EE CONSULTANT OTILIA BAIRD M.D. Performed By: #### C BC, LACTIC, HS TROP, BMP #### [place] [id number] [facility] Glucose [Mass/Vol] 103 mg/dL Normal [facility] Comment on above: Result Comment: [place] om Glucose Reference Range is dependent on time and content of last meal. Glucose of more than 200 mg/dL in a nonstressed, ambulatory subject supports the diagnosis of Diabetes Mellitus. Performed By: #### C BC, LACTIC, HS TROP, BMP #### [facility] [address] Arterial Blood Gason 021 ABG Base Excess 17.0 mmol/L High -3.0-3.0 [facility] Comment on above: Performed By: #### C BC, LACTIC, HS TROP, BMP #### [address] ABG Frac Inspired O2 60 % Normal [facility] Comment on above: Performed By: #### C BC, LACTIC, HS TROP, BMP #### [address] ABG Oxygen Content 7.6 mmol/L Normal 6.6-9.7 [facility] Comment on above: Performed By: #### C BC, LACTIC, HS TROP, BMP #### [address] ABG Oxygen Saturation 94.3 % Low 95.0-100.0 [facility] Comment on above: Performed By: #### C BC, LACTIC, HS TROP, BMP #### [address] ABG PCO2 90.7 mm[Hg] Off scale high 35.0-45.0 [facility] Comment on above: Performed By: #### C BC, LACTIC, HS TROP, BMP #### [facility] [address] [place] [address] ABG PH 7.34 Low 7.35-7.45 [facility] Comment on above: Performed By: #### C BC, LACTIC, HS TROP, BMP #### [facility] [address] [place] [address] ABG PO2 77.7 mm[Hg] Low 80.0-100.0 [facility] Comment on above: Performed By: #### C BC, LACTIC, HS TROP, BMP #### [facility] [address] [place] [address] CO2 [Moles/Vol] 50.1 mmol/L High 23.0-27.0 [facility] Comment on above: Performed By: #### C BC, LACTIC, HS TROP, BMP #### [address] HCO3 (Bld) [Moles/Vol] 47.3 mmol/L High 23.0-29.0 [facility] Comment on above: Performed By: #### C BC, LACTIC, HS TROP, BMP #### [address] Respiratory Critical Normal [facility] Comment on above: Result Comment: Crit ical Value called on: 07/10/2021 at 05:01 PERFORMED BY: [place] [address] PATHOLOGIST J2EE CONSULTANT OTILIA BAIRD M.D. Performed By: #### C BC, LACTIC, HS TROP, BMP #### [address] Set Respiratory Rate 12 Normal [facility] Comment on above: Performed By: #### C BC, LACTIC, HS TROP, BMP #### [address] VBG Draw Site Right Radial Normal [facility] Comment on above: Performed By: #### C BC, LACTIC, HS TROP, BMP #### [address] Basic Metabolic Panelon 07-01 Calcium [Mass/Vol] 9.4 mg/dL Normal 8.2-10.2 [facility] Comment on above: Performed By: #### C BC, LACTIC, HS TROP, BMP #### [address] Chloride [Moles/Vol] 88 mmol/L Low 95-114 [facility] Comment on above: Performed By: #### C BC, LACTIC, HS TROP, BMP #### [address] CO2 [Moles/Vol] 41.2 mmol/L High 22.0-30.0 [facility] Comment on above: Performed By: #### C BC, LACTIC, HS TROP, BMP #### [address] Creatinine [Mass/Vol] 0.74 mg/dL Normal 0.44-1.03 [facility] Comment on above: Performed By: #### C BC, LACTIC, HS TROP, BMP #### [address] Creatinine Clr Calc Pharmacy 122.16 [facility] Comment on above: Result Comment: PERF ORMED BY: [place] [address] PATHOLOGIST J2EE CONSULTANT OTILIA BAIRD M.D. Performed By: #### C BC, LACTIC, HS TROP, BMP #### [address] Estimated GFR ( Hilary > 60 [facility] Comment on above: Result Comment: GFR estimated reference range: According to KDOQI guidelines, <60 ml/min/1.73m2 is sufficient to diagnose a patient with chronic kidney disease. Performed By: #### C BC, LACTIC, HS TROP, BMP #### [address] Estimated GFR (Non- Am > 60 [facility] Comment on above: Performed By: #### C BC, LACTIC, HS TROP, BMP #### [address] Glucose [Mass/Vol] 94 mg/dL Normal 70-100 [facility] Comment on above: Result Comment: [place] Glucose Reference Range is dependent on time and content of last meal. Glucose of more than 200 mg/dL in a nonstressed, ambulatory subject supports the diagnosis of Diabetes Mellitus. ADA recommended reference range Performed By: #### C BC, LACTIC, HS TROP, BMP #### [place] [address] [place] Potassium [Moles/Vol] 3.9 mmol/L Normal 3.5-5.1 [facility] Comment on above: Performed By: #### C BC, LACTIC, HS TROP, BMP #### [facility] [address] [place] [id number] [place] Sodium [Moles/Vol] 138 mmol/L Normal 136-146 [facility] Comment on above: Performed By: #### C BC, LACTIC, HS TROP, BMP #### [facility] [address] [place] [id number] [facility] Urea nitrogen [Mass/Vol] 15 mg/dL Normal 9-23 [facility] Comment on above: Performed By: #### C BC, LACTIC, HS TROP, BMP #### [facility] [address] [place] [address] [place] ECH echo transthoracicon ECH echo transthoracic [facility] [address] [place] [address] Echocardiogram Signed Patient: Aliya Moore MR#: [id number] : 1965 Acct:[id number] Age/Sex: 55 / F ADM Date: 07/09/21 Loc: Room: [address] [place] [address] Type: ADM IN Attending Dr: Colby Camara [...] MD 07/10/21 1037 Signed By: 07/10/21 1324 Normal [facility] Glucose Poct Glucometerson 0 07-10-2021 Commemt1 Glu2: Cleaned Meter Normal [facility] Comment on above: Result Comment: PERF ORMED BY: [facility] [address] [place] [address] PATHOLOGIST J2EE CONSULTANT OTILIA BAIRD M.D. Performed By: #### C BC, LACTIC, HS TROP, BMP #### [place] [address] [place] Glucose [Mass/Vol] 124 mg/dL Normal [facility] Comment on above: Result Comment: [place] om Glucose Reference Range is dependent on time and content of last meal. Glucose of more than 200 mg/dL in a nonstressed, ambulatory subject supports the diagnosis of Diabetes Mellitus. Performed By: #### C BC, LACTIC, HS TROP, BMP #### [address] Commemt1 Glu2: Cleaned Meter [facility] Comment on above: Result Comment: PERF ORMED BY: [place] [address] PATHOLOGIST J2EE CONSULTANT OTILIA BAIRD M.D. Performed By: #### C BC, LACTIC, HS TROP, BMP #### [place] [address] [place] Glucose [Mass/Vol] 293 mg/dL Normal [facility] Comment on above: Result Comment: [place] om Glucose Reference Range is dependent on time and content of last meal. Glucose of more than 200 mg/dL in a nonstressed, ambulatory subject supports the diagnosis of Diabetes Mellitus. Performed By: #### C BC, LACTIC, HS TROP, BMP #### [address] Commemt1 Glu2: Cleaned Meter Normal [facility] Comment on above: Result Comment: PERF ORMED BY: [facility] [address] [place] [address] PATHOLOGIST J2EE CONSULTANT OTILIA BAIRD M.D. Performed By: #### C BC, LACTIC, HS TROP, BMP #### [place] [id number] [place] Glucose [Mass/Vol] 140 mg/dL Normal [facility] Comment on above: Result Comment: [place] om Glucose Reference Range is dependent on time and content of last meal. Glucose of more than 200 mg/dL in a nonstressed, ambulatory subject supports the diagnosis of Diabetes Mellitus. Performed By: #### C BC, LACTIC, HS TROP, BMP #### [address] Glucose [Mass/Vol] 105 mg/dL Normal [facility] Comment on above: Result Comment: [facility] Glucose Reference Range is dependent on time and content of last meal. Glucose of more than 200 mg/dL in a nonstressed, ambulatory subject supports the diagnosis of Diabetes Mellitus. PERFORMED BY: [place] [address] PATHOLOGIST J2EE CONSULTANT OTILIA BAIRD M.D. Performed By: #### C BC, LACTIC, HS TROP, BMP #### [address] B-Type Natriuretic Peptideon 07-09-2021 Natriuretic peptide B (Bld) [Mass/Vol] 121.0 pg/mL High 5-100 [facility] Comment on above: Result Comment: PERF ORMED BY: [place] [address] PATHOLOGIST J2EE CONSULTANT OTILIA BAIRD M.D. Performed By: #### C BC, LACTIC, HS TROP, BMP #### [address] Basic Metabolic Panelon Calcium [Mass/Vol] 9.0 mg/dL Normal 8.2-10.2 [facility] Comment on above: Performed By: #### C BC, LACTIC, HS TROP, BMP #### [place] [id number] [place] Chloride [Moles/Vol] 92 mmol/L Low 95-114 [facility] Comment on above: Performed By: #### C BC, LACTIC, HS TROP, BMP #### [place] [address] [place] CO2 [Moles/Vol] 36.9 mmol/L High 22.0-30.0 [facility] Comment on above: Performed By: #### C BC, LACTIC, HS TROP, BMP #### [facility] [address] Creatinine [Mass/Vol] 0.66 mg/dL Normal 0.44-1.03 [facility] Comment on above: Performed By: #### C BC, LACTIC, HS TROP, BMP #### [facility] [address] [place] [address] [place] Creatinine Clr Calc Pharmacy 137.69 [facility] Comment on above: Result Comment: PERF ORMED BY: [facility] [address] [place] [address] PATHOLOGIST J2EE CONSULTANT OTILIA BAIRD M.D. Performed By: #### C BC, LACTIC, HS TROP, BMP #### [address] Estimated GFR ( Hilary > 60 [facility] Comment on above: Result Comment: GFR estimated reference range: According to KDOQI guidelines, <60 ml/min/1.73m2 is sufficient to diagnose a patient with chronic kidney disease. Performed By: #### C BC, LACTIC, HS TROP, BMP #### [facility] [address] Estimated GFR (Non- Am > 60 [facility] Comment on above: Performed By: #### C BC, LACTIC, HS TROP, BMP #### [address] Glucose [Mass/Vol] 119 mg/dL High 70-100 [facility] Comment on above: Result Comment: [place] Glucose Reference Range is dependent on time and content of last meal. Glucose of more than 200 mg/dL in a nonstressed, ambulatory subject supports the diagnosis of Diabetes Mellitus. ADA recommended reference range Performed By: #### C BC, LACTIC, HS TROP, BMP #### [facility] [address] Potassium [Moles/Vol] 4.5 mmol/L Normal 3.5-5.1 [facility] Comment on above: Performed By: #### C BC, LACTIC, HS TROP, BMP #### [facility] [address] [place] [id number] [place] Sodium [Moles/Vol] 137 mmol/L Normal 136-146 [facility] Comment on above: Performed By: #### C BC, LACTIC, HS TROP, BMP #### [facility] [address] [place] [id number] [place] Urea nitrogen [Mass/Vol] 9 mg/dL Normal 9-23 [facility] Comment on above: Performed By: #### C BC, LACTIC, HS TROP, BMP #### [facility] [address] [place] [id number] [facility] COVID-19 Antigenon 1 COVID-19 Antigen Healthcare Worker?: [...] its performance [place] Disclaimer characteristic determined by [employer] and [place] Disclaimer validated at [facility]. This [place]ar Disclaimer test has not [...] Emergency Use Authorization for Coronavirus [place] Disclaimer iseas during the Public Health Emergency) [place] Disclaimer [...] is terminated or revoked sooner. PERFORMED BY: [place] [address] PATHOLOGIST J2EE CONSULTANT OTILIA BAIRD M.D. Normal [facility] Comment on above: Performed By: #### C OVID 19 [facility], COVID-19 TEO ALDRICHEG #### [address] COVID-[facility] [place] [place] SARS-CoV-2 (COVID-19) RNA PANDA+probe Ql (Unsp spec) Negative Normal Negative [facility] Comment on above: Order Comment: Healt hcare Worker?: N Result Comment: Testing for SARS-CoV-2 by RT-PCR This test was developed and its performance characteristics determined by [employer] and validated at the [facility]. This test has not been FDA [...] is terminated or revoked sooner. PERFORMED BY: [place] [address] PATHOLOGIST J2EE CONSULTANT OTILIA BAIRD M.D. Performed By: #### C OVID 19 [facility] [place], COVID-19 VALDEMAR, SOFIANEG #### [address] Complete Blood Count Auto Di ffon 07-09-2021 Basophils (Bld) [#/Vol] 0.0 10*3/uL Normal 0.0-0.2 [facility] Comment on above: Result Comment: PERF ORMED BY: [place] [address] PATHOLOGIST J2EE CONSULTANT OTILIA BAIRD M.D. Performed By: #### C BC, LACTIC, HS TROP, BMP #### [address] Basophils/100 WBC (Bld) 0.4 % Normal . [facility] Comment on above: Performed By: #### C BC, LACTIC, HS TROP, BMP #### [address] [address] [place] Eosinophils (Bld) [#/Vol] 0.2 10*3/uL Normal 0.0-0.45 [facility] Comment on above: Performed By: #### C BC, LACTIC, HS TROP, BMP #### [address] Eosinophils/100 WBC (Bld) 2.5 % Normal . [facility] Comment on above: Performed By: #### C BC, LACTIC, HS TROP, BMP #### [address] Erythrocyte distribution width (RBC) [Ratio] 18.9 % High 11.9-15.3 [facility] Comment on above: Performed By: #### C BC, LACTIC, HS TROP, BMP #### [address] Hematocrit (Bld) [Volume fraction] 39.5 % Normal 34.0-46.4 [facility] Comment on above: Performed By: #### C BC, LACTIC, HS TROP, BMP #### [address] Hemoglobin (Bld) [Mass/Vol] 12.8 g/dL Normal 11.8-15.4 [facility] Comment on above: Performed By: #### C BC, LACTIC, HS TROP, BMP #### [place] [address] [place] Lymphocytes (Bld) [#/Vol] 0.7 10*3/uL Low 1.00-4.8 [facility] Comment on above: Performed By: #### C BC, LACTIC, HS TROP, BMP #### [place] [address] [place] Lymphocytes/100 WBC (Bld) 9.3 % Normal . [facility] Comment on above: Performed By: #### C BC, LACTIC, HS TROP, BMP #### [address] MCH (RBC) [Entitic mass] 28.8 pg Normal 24.7-34.3 [facility] Comment on above: Performed By: #### C BC, LACTIC, HS TROP, BMP #### [facility] [address] [place] [address] MCV (RBC) [Entitic vol] 89.1 fL Normal 80-100 [facility] Comment on above: Performed By: #### C BC, LACTIC, HS TROP, BMP #### [address] Mean Corpuscular HGB Conc 32.4 g/dL Normal 32.0-35.0 [facility] Comment on above: Performed By: #### C BC, LACTIC, HS TROP, BMP #### [address] Monocytes (Bld) [#/Vol] 0.7 10*3/uL Normal 0.0-0.8 [facility] Comment on above: Performed By: #### C BC, LACTIC, HS TROP, BMP #### [address] Monocytes/100 WBC (Bld) 8.4 % Normal . [facility] Comment on above: Performed By: #### C BC, LACTIC, HS TROP, BMP #### [address] Neutrophils (Bld) [#/Vol] 6.4 10*3/uL Normal 1.8-7.7 [facility] Comment on above: Performed By: #### C BC, LACTIC, HS TROP, BMP #### [address] Neutrophils/100 WBC (Bld) 79.4 % Normal . [facility] Comment on above: Performed By: #### C BC, LACTIC, HS TROP, BMP #### [place] [address] [place] Nucleated RBC/100 WBC (Bld) [Ratio] 0.2 % Normal 0-0.5 [facility] Comment on above: Performed By: #### C BC, LACTIC, HS TROP, BMP #### [place] [address] [place] Platelet mean volume (Bld) [Entitic vol] 9.4 fL Normal 6.3-10.7 [facility] Comment on above: Performed By: #### C BC, LACTIC, HS TROP, BMP #### [facility] [address] Platelets (Bld) [#/Vol] 138 10*3/uL Low 150-450 [facility] Comment on above: Performed By: #### C BC, LACTIC, HS TROP, BMP #### [facility] [address] RBC (Bld) [#/Vol] 4.44 10*6/uL Normal 3.60-5.00 [facility] Comment on above: Performed By: #### C BC, LACTIC, HS TROP, BMP #### [address] WBC (Bld) [#/Vol] 8.0 10*3/uL Normal 4.5-11.0 [facility] Comment on above: Performed By: #### C BC, LACTIC, HS TROP, BMP #### [address] D-Dimer High Sensitivityon 0 07-09-2021 D-Dimer High Sensitivity 247 ng/mL High 0-243 [facility] Comment on above: Result Comment: The [...] patients due to co-morbid conditions. PERFORMED BY: [place] [address] PATHOLOGIST J2EE CONSULTANT OTILIA BAIRD M.D. Performed By: #### C BC, LACTIC, HS TROP, BMP #### [facility] [address] [place] [address] [place] ECG 12 lead ECGon 07-09-2021 ECG 12 lead ECG [facility] [address] [place] [address] Electrocardiograph Report Signed Patient: Aliya Moore MR#: [id number] : 1965 Acct:[id number] Age/Sex: 55 / F ADM Date: 07/09/21 Loc: Room: [address] [place] [address] Type: ADM IN Attending Dr: Kirk Lopez [...] ECGs available Confirmed by CAROLEE ABDALLA DO ([id number]) on 07/09/2021 1:45:33 AM Referred By: Electronically Signed By:CAROLEE ABDALLA DO Transcribed By: MUS Signed By Carolee Abdalla DO 07/09 0145 Normal [facility] Glucose Poct Glucometerson 0 07-09-2021 Commemt1 Glu2: Cleaned Meter Normal [facility] Comment on above: Result Comment: PERF ORMED BY: [place] [address] PATHOLOGIST J2EE CONSULTANT OTILIA BAIRD M.D. Performed By: #### C BC, LACTIC, HS TROP, BMP #### [facility] [address] [place], [place] [id number] [place] Glucose [Mass/Vol] 154 mg/dL Normal [facility] Comment on above: Result Comment: [place] Glucose Reference Range is dependent on time and content of last meal. Glucose of more than 200 mg/dL in a nonstressed, ambulatory subject supports the diagnosis of Diabetes Mellitus. Performed By: #### C BC, LACTIC, HS TROP, BMP #### [facility] [address] [place] [address] [place] Glucose [Mass/Vol] 132 mg/dL Normal [facility] Comment on above: Result Comment: [place] om Glucose Reference Range is dependent on time and content of last meal. Glucose of more than 200 mg/dL in a nonstressed, ambulatory subject supports the diagnosis of Diabetes Mellitus. PERFORMED BY: [address] [place] [address] PATHOLOGIST J2EE CONSULTANT OTILIA BAIRD M.D. Performed By: #### C BC, LACTIC, HS TROP, BMP #### [place] [address] [place] Glucose [Mass/Vol] 176 mg/dL Normal [facility] Comment on above: Result Comment: [place] om Glucose Reference Range is dependent on time and content of last meal. Glucose of more than 200 mg/dL in a nonstressed, ambulatory subject supports the diagnosis of Diabetes Mellitus. PERFORMED BY: [place] [address] PATHOLOGIST J2EE CONSULTANT OTILIA BAIRD M.D. Performed By: #### C BC, LACTIC, HS TROP, BMP #### [address] Glucose [Mass/Vol] 173 mg/dL Normal [facility] Comment on above: Result Comment: [place] om Glucose Reference Range is dependent on time and content of last meal. Glucose of more than 200 mg/dL in a nonstressed, ambulatory subject supports the diagnosis of Diabetes Mellitus. PERFORMED BY: [place] [address] PATHOLOGIST J2EE CONSULTANT OTILIA BAIRD M.D. Performed By: #### G LULS #### Point of Care testing , Lactic Acidon 07-09-2021 Lactate [Moles/Vol] 0.6 mmol/L Normal 0.5-2.2 [facility] Comment on above: Result Comment: PERF ORMED BY: [place] [address] PATHOLOGIST J2EE CONSULTANT OTILIA BAIRD M.D. Performed By: #### C BC, LACTIC, HS TROP, BMP #### [facility] [address] [place] [address] Valdemar Ag Negativeon 07-09-20 21 [place]ar Ag Negative Negative Normal Negative [facility] Comment on above: Result Comment: This is a duplicate [place]ar SARS Antigen (ROWDY) result to be used for statistical tracking purpose only. PERFORMED BY: [place] [address] PATHOLOGIST J2EE CONSULTANT OTILIA BAIRD M.D. Performed By: #### C OVID 19 [facility] [place], COVID-19 VALDEMAR, SOFIANEG #### [address] Troponin I High Sensitivityo n 07-09-2021 Troponin I High Sensitivity 14 pg/mL Normal 0-15 [facility] Comment on above: Result Comment: PERF ORMED BY: [place] [address] PATHOLOGIST J2EE CONSULTANT OTILIA BAIRD M.D. Performed By: #### C BC, LACTIC, HS TROP, BMP #### [address] Venous Blood Gason 1 CO2 [Moles/Vol] 40.3 mmol/L High 24.0-29.0 [facility] Comment on above: Performed By: #### V BG #### Point of Care testing , HCO3 (Bld) [Moles/Vol] 38.2 mmol/L High 23.0-29.0 [facility] Comment on above: Performed By: #### V BG #### Point of Care testing , Respiratory Critical Normal [facility] Comment on above: Result Comment: Crit ical Value called on: 07/08/2021 at 23:40 PERFORMED BY: [place] [address] PATHOLOGIST J2EE CONSULTANT OTILIA BAIRD M.D. Performed By: #### V BG #### Point of Care testing , VBG Base Excess 9.9 mmol/L High -3.0-3.0 [facility] Comment on above: Performed By: #### V BG #### Point of Care testing , VBG Draw Site Other Normal [facility] Comment on above: Performed By: #### V BG #### Point of Care testing , VBG Frac Inspired O2 70 % Normal [facility] Comment on above: Performed By: #### V BG #### Point of Care testing , VBG Oxygen Saturation 94.1 % Off scale high 73.0-76.0 [facility] Comment on above: Performed By: #### V BG #### Point of Care testing , VBG PCO2 70.1 mm[Hg] High 38.0-50.0 [facility] Comment on above: Performed By: #### V BG #### Point of Care testing , VBG PH Venous PH 7.35 Normal 7.32-7.43 [facility] Comment on above: Performed By: #### V BG #### Point of Care testing , VBG PO2 72.4 mm[Hg] High 35.0-45.0 [facility] Comment on above: Performed By: #### V BG #### Point of Care testing , XR chest 1V portableon 07-09 XR [place] 1[place] [address] XRay Report Signed Patient: Aliya Moore MR#: [id number] : 1965 Acct:[id number] Age/Sex: 55 / F ADM Date: 07/09/21 Loc: Room: [address] [place] [address] Type: ADM IN Attending Dr: Kirk Lopez [...] Sheldon Khan M.D.07/09/2021 8:33 AM Dictation Location: [facility]-- Transcribed By: [facility] 07/09/21832 Dictated By: Sheldon Khan DO 07/09/21831 Signed By: 07/09/21832 [facility] Reporton 06-15-2021 Cardiovascular Lab Report [facility] Patient Name: Moore [facility] MR #: [id number] Department of Physician: Boo Landers M.D. Division of Service Date: 06/15/2021 Cardiology Birthdate: 1965 Adult Cardiovascular Room #: [place] [address] Cardiovascular Laboratory Report IMPRESSIONS: 1. Mild disease [...] management; given mild coronary artery disease, aspirin, tsjiautl-bl-eirc intensity statin therapy, beta-aleks, and angiotensin-convertin g enzyme inhibitor are indicated. 4. Follow up with Toshia Sam nurse practitioner in the next 2 to 3 months. 5. Follow up with her family physician as scheduled. PROCEDURES: Ultrasound-guided access to the right common femoral vein, ultrasound-guided access to the right common femoral artery, right heart catheterization, bilateral selective coronary angiography, placement of a 6-Scottish MynxGrip closure device. METHODS: After risks, benefits, [...] femoral vein and artery was obtained. A 6-Scottish 11 cm sheath was placed in each. [...] the procedure. All catheters were removed. A 6-Scottish MynxGrip closure device was deployed per protocol [...] Soto M.D. Date Trans: 06/15/2021 11:37 A/sofía [id number] cc: Toshia Sam, MSN, DIRECTOR OF SOLUTIONS ARCHITECTURE-C Department Of Surgery [place] [address] [facility] [address] Normal [facility] Vital Signs Date Time Vital Sign Value Performing Clinician Facility 01-16-2024 11:17-0400 Body temperature 97.7 [degF] Mariama Barcenas [facility] 01-16-2024 11:17-0400 Diastolic blood pressure 73 mm[Hg] Mariama Barcenas [facility] 01-16-2024 11:17-0400 Heart rate 109 /min [facility] Swapna [facility] 01-16-2024 11:17-0400 Mean blood pressure 92 mm[Hg] Mariama Barcenas [facility] 01-16-2024 11:17-0400 Respiratory rate 18 /min [facility] Swapna [facility] 01-16-2024 11:17-0400 SaO2% (BldA) [Mass fraction] 94 % [facility] Swapna [facility] 01-16-2024 11:17-0400 Systolic blood pressure 130 mm[Hg] Mariama Barcenas [facility] 12-05-2023 08:48-0500 Body height 175.3 cm Brea Jj NP Work Phone: [facility] 12-05-2023 08:48-0500 Body mass index (BMI) [Ratio] 37.51 kg/m2 Brea Jj SCIENTIFIC SOFTWARE ENGINEER Work Phone: [facility] 12-05-2023 08:48-0500 Body temperature 97.11 [degF] Brea Jj SCIENTIFIC SOFTWARE ENGINEER Work Phone: [facility] 12-05-2023 08:48-0500 Body weight 115.21 kg Brea Jj SCIENTIFIC SOFTWARE ENGINEER Work Phone: [facility] 12-05-2023 08:48-0500 Diastolic blood pressure 68 mm[Hg] Brea Jj SCIENTIFIC SOFTWARE ENGINEER Work Phone: [facility] 12-05-2023 08:48-0500 Heart rate 103 /min Brea Jj SCIENTIFIC SOFTWARE ENGINEER Work Phone: [facility] 12-05-2023 08:48-0500 Respiratory rate 17 /min Brea Jj SCIENTIFIC SOFTWARE ENGINEER Work Phone: [facility] 12-05-2023 08:48-0500 SaO2% (BldA) [Mass fraction] 99 % Brea Jj SCIENTIFIC SOFTWARE ENGINEER Work Phone: [facility] 12-05-2023 08:48-0500 Systolic blood pressure 110 mm[Hg] Brea Jj SCIENTIFIC SOFTWARE ENGINEER Work Phone: [facility] 09-25-2023 21:50-0500 Diastolic blood pressure 73 mm[Hg] Demond Avni [facility] 09-25-2023 21:50-0500 Heart rate 95 /min Demond Avni [facility] 09-25-2023 21:50-0500 Mean blood pressure 90 mm[Hg] Demond Avni [facility] 09-25-2023 21:50-0500 Respiratory rate 22 /min Demond Avni [facility] 09-25-2023 21:50-0500 SaO2% (BldA) [Mass fraction] 97 % Demond Avni [facility] 09-25-2023 21:50-0500 Systolic blood pressure 123 mm[Hg] Demond Avni [facility] 09-25-2023 20:37-0500 Diastolic blood pressure 77 mm[Hg] Demond Avni [facility] 09-25-2023 20:37-0500 Heart rate 94 /min Demond Avni [facility] 09-25-2023 20:37-0500 Mean blood pressure 99 mm[Hg] Demond Avni [facility] 09-25-2023 20:37-0500 Respiratory rate 18 /min Demond Avni [facility] 09-25-2023 20:37-0500 SaO2% (BldA) [Mass fraction] 97 % Demond Avni [facility] 09-25-2023 20:37-0500 Systolic blood pressure 144 mm[Hg] Demond Avni [facility] 09-25-2023 19:50-0500 Diastolic blood pressure 83 mm[Hg] Demond Avni [facility] 09-25-2023 19:50-0500 Heart rate 100 /min Demond Avni [facility] 09-25-2023 19:50-0500 Mean blood pressure 104 mm[Hg] Demond Avni [facility] 09-25-2023 19:50-0500 Respiratory rate 22 /min Demond Avni [facility] 09-25-2023 19:50-0500 SaO2% (BldA) [Mass fraction] 98 % Demond Avni [facility] 09-25-2023 19:50-0500 Systolic blood pressure 147 mm[Hg] Demond Avni [facility] 09-25-2023 18:23-0500 Body temperature 98.24 [degF] Demond Holly [facility] 09-25-2023 18:23-0500 Heart rate 111 /min Demond Avni [facility] 09-25-2023 18:23-0500 Respiratory rate 24 /min Demond Avni [facility] 09-08-2023 20:26-0500 Body temperature 98.06 [degF] Ramses Reginaldo [facility] 09-08-2023 20:26-0500 Diastolic blood pressure 76 mm[Hg] Ramses Hair [facility] 09-08-2023 20:26-0500 Heart rate 81 /min Ramses Hair [facility] 09-08-2023 20:26-0500 Mean blood pressure 87 mm[Hg] Ramses Hair [facility] 09-08-2023 20:26-0500 Respiratory rate 20 /min Ramses Hair [facility] 09-08-2023 20:26-0500 SaO2% (BldA) [Mass fraction] 99 % Ramses Hair [facility] 09-08-2023 20:26-0500 Systolic blood pressure 110 mm[Hg] Ramses Hair [facility] 09-08-2023 19:28-0500 Diastolic blood pressure 61 mm[Hg] Ramses Reginaldo [facility] 09-08-2023 19:28-0500 Heart rate 86 /min Ramses Hair [facility] 09-08-2023 19:28-0500 Mean blood pressure 82 mm[Hg] Ramses Reginaldo [facility] 09-08-2023 19:28-0500 Respiratory rate 18 /min Ramses Reginaldo [facility] 09-08-2023 19:28-0500 SaO2% (BldA) [Mass fraction] 99 % Ramses Reginaldo [facility] 09-08-2023 19:28-0500 Systolic blood pressure 123 mm[Hg] Ramses Reginaldo [facility] 09-08-2023 18:00-0500 Diastolic blood pressure 75 mm[Hg] Ramses Reginaldo [facility] 09-08-2023 18:00-0500 Heart rate 92 /min Ramses Reginaldo [facility] 09-08-2023 18:00-0500 SaO2% (BldA) [Mass fraction] 91 % Ramses Reginaldo [facility] 09-08-2023 18:00-0500 Systolic blood pressure 124 mm[Hg] Ramses Reginaldo [facility] 09-08-2023 16:33-0500 Body temperature 98.24 [degF] Ramses Reginaldo [facility] 09-08-2023 16:33-0500 Heart rate 104 /min Ramses Reginaldo [facility] 09-08-2023 16:33-0500 Respiratory rate 24 /min Ramses Reginaldo [facility] 07-19-2023 09:00-0400 Blood Pressure Location Mhd Al-Marrawi [facility] 07-19-2023 09:00-0400 Body temperature 98.06 [degF] Mhd Al-Marrawi [facility] 07-19-2023 09:00-0400 Diastolic blood pressure 72 mm[Hg] Mhd Al-Marrawi [facility] 07-19-2023 09:00-0400 Heart rate 79 /min Mhd Al-Marrawi [facility] 07-19-2023 09:00-0400 Mean blood pressure 88 mm[Hg] Mhd Al-Marrawi [facility] 07-19-2023 09:00-0400 Respiratory rate 18 /min Mhd Al-Marrawi [facility] 07-19-2023 09:00-0400 SaO2% (BldA) [Mass fraction] 93 % d Al-Marrawi [facility] 07-19-2023 09:00-0400 Systolic blood pressure 120 mm[Hg] d Al-Marrawi [facility] 06-28-2023 10:00-0400 Blood [facility]28[facility] 10:00-0400 Body temperature 98.06 [degF] [facility] 10:00-0400 Diastolic blood pressure 69 mm[Hg] [facility] 10:00-0400 Heart rate 101 /min [facility]-28-2023 10:00-0400 Mean blood pressure 90 mm[Hg] [facility]28[facility] 10:00-0400 Respiratory rate 16 /min [facility] 06-28-2023 10:00-0400 SaO2% (BldA) [Mass fraction] 92 % [facility]-28-2023 10:00-0400 Systolic blood pressure 133 mm[Hg] Ezekiel Christian [facility] 06-17-2023 17:06-0400 Hourly Rounding Mbanefo OJUKWU [facility] 06-17-2023 17:06-0400 Promise to Return Mbanefo OJUKWU [facility] 06-17-2023 16:00-0400 Hourly Rounding Mbanefo OJUKWU [facility] 06-17-2023 16:00-0400 Promise to Return Mbanefo OJUKWU [facility] 06-17-2023 15:42-0400 Heart rate 82 /min Mbanefo OJUKWU [facility] 06-17-2023 15:42-0400 SaO2% (BldA) [Mass fraction] 95 % Mbanefo OJUKWU [facility] 06-17-2023 15:42-0400 Diastolic blood pressure 64 mm[Hg] Mbanefo OJUKWU [facility] 06-17-2023 15:42-0400 Mean blood pressure 79 mm[Hg] Mbanefo OJUKWU [facility] 06-17-2023 15:42-0400 Systolic blood pressure 109 mm[Hg] Mbanefo OJUKWU [facility] 06-17-2023 15:41-0400 Body temperature 97.88 [degF] Mbanefo OJUKWU [facility] 06-17-2023 15:05-0400 Hourly Rounding Mbanefo OJUKWU [facility] 06-17-2023 15:05-0400 Promise to Return Mbanefo OJUKWU [facility] 06-17-2023 14:00-0400 SaO2% (BldA) [Mass fraction] 96 % Mbanefo OJUKWU [facility] 06-17-2023 12:53-0400 Heart rate 87 /min Mbanefo OJUKWU [facility] 06-17-2023 12:53-0400 Respiratory rate 18 /min Mbanefo OJUKWU [facility] 06-17-2023 12:48-0400 SaO2% (BldA) [Mass fraction] 95 % Mbanefo OJUKWU [facility] 06-17-2023 12:44-0400 Heart rate 86 /min Mbanefo OJUKWU [facility] 06-17-2023 12:44-0400 Respiratory rate 18 /min Mbanefo OJUKWU [facility] 06-17-2023 12:00-0400 Diastolic blood pressure 66 mm[Hg] Mbanefo OJUKWU [facility] 06-17-2023 12:00-0400 Mean blood pressure 86 mm[Hg] Mbanefo OJUKWU [facility] 06-17-2023 12:00-0400 Systolic blood pressure 125 mm[Hg] Mbanefo OJUKWU [facility] 06-17-2023 09:19-0400 Diastolic blood pressure 71 mm[Hg] Mbanefo OJUKWU [facility] 06-17-2023 09:19-0400 Systolic blood pressure 134 mm[Hg] Mbanefo OJUKWU [facility] 06-17-2023 09:16-0400 gluc 173 mg/dL Mbanefo OJUKWU [facility] 06-17-2023 07:33-0400 Mean blood pressure 90 mm[Hg] Mbanefo OJUKWU [facility] 06-17-2023 07:33-0400 Body temperature 97.88 [degF] Mbanefo OJUKWU [facility] 06-17-2023 04:00-0400 Blood Pressure Location Mbanefo OJUKWU [facility] 06-17-2023 04:00-0400 Body temperature 98.24 [degF] Mbanefo OJUKWU [facility] 06-17-2023 04:00-0400 Mean blood pressure 91 mm[Hg] Mbanefo OJUKWU [facility] 06-17-2023 00:00-0400 Body temperature 97.88 [degF] Mbanefo OJUKWU [facility] 06-16-2023 22:48-0400 Blood Pressure Location Mbanefo OJUKWU [facility] 06-16-2023 22:48-0400 Body temperature 98.24 [degF] Mbanefo OJUKWU [facility] 06-16-2023 22:48-0400 Heart rate 80 /min Mbanefo OJUKWU [facility] 06-16-2023 21:42-0400 Mean blood pressure 76 mm[Hg] Mbanefo OJUKWU [facility] 06-16-2023 21:42-0400 Respiratory rate 18 /min Mbanefo OJUKWU [facility] 06-16-2023 20:45-0400 Mean blood pressure 95 mm[Hg] Mbanefo OJUKWU [facility] 06-16-2023 20:45-0400 Respiratory rate 18 /min Mbanefo OJUKWU [facility] 06-16-2023 19:39-0400 Respiratory rate 18 /min Mbanefo OJUKWU [facility] 06-16-2023 15:51-0400 Heart rate 107 /min Mbanefo OJUKWU [facility] 06-16-2023 15:51-0400 Respiratory rate 22 /min Mbanefo OJUKWU [facility] Encounters Encounter Date Encounter Type Care Provider Facility Start: 02-21-2024 End: 02-21-2024 ambulatory BREA AICHHOLZ Not Available Start: 01-16-2024 End: 01-17-2024 ambulatory Mariama Barcenas [facility] Start: 01-16-2024 End: 01-16-2024 Patient encounter procedure Mariama Barcenas [facility] Start: 01-10-2024 End: 01-10-2024 ambulatory BREA AICHHOLZ Not Available Start: 01-09-2024 End: 01-10-2024 ambulatory Mhd Yaser Al-Marrawi [facility] Start: 01-09-2024 End: 01-09-2024 Patient encounter procedure Mhd Yaser Al-Marrawi [facility] Start: 12-08-2023 Refill Brea Aichholz SCIENTIFIC SOFTWARE ENGINEER Work Phone: [facility] Comment on above: Anxiety and depressi on (CMS/HCC) (Primary Dx); Type 2 diabetes mellitus without complication, without long-term current use of insulin (CMS/HCC); Arthritis Start: 12-05-2023 End: 12-05-2023 ambulatory BREA AICHHOLZ Not Available Start: 12-05-2023 End: 12-05-2023 Office outpatient visit 25 minutes Brea Анна SCIENTIFIC SOFTWARE ENGINEER Work Phone: [facility] Comment on above: Other insomnia (Prim fay Dx); ROLANDO (obstructive sleep apnea); COPD mixed type (CMS/HCC); Tobacco dependence syndrome; BMI 37.0-37.9, adult; Anxiety and depression (CMS/HCC); Restless leg syndrome Start: 10-19-2023 End: 10-19-2023 ambulatory BREA AICHHOLZ Not Available Start: 09-25-2023 End: 09-25-2023 Emergency department patient visit Moses Fischer Facility[facility] Start: 09-25-2023 End: 09-25-2023 Emergency department patient visit Demond Holly [facility] Start: 09-08-2023 End: 09-08-2023 Emergency department patient visit Ramses Hair Facility[facility] Start: 09-08-2023 End: 09-08-2023 Emergency department patient visit Ramses Hair [facility] Start: 07-20-2023 End: 07-20-2023 ambulatory EHAB [facility] Start: 07-19-2023 End: 07-20-2023 ambulatory Mhd Ryan Bob Facility[place] Start: 07-19-2023 End: 07-19-2023 Patient encounter procedure Mhd Ryan Woodward-Neelima [facility] Start: 06-28-2023 End: 06-29-2023 ambulatory Mhd Yaser Al-Michelinerawi [place] Start: 06-28-2023 End: 06-29-2023 ambulatory Mhd Yaser Al-Michelinerawi Facility[place] Start: 06-28-2023 End: 06-28-2023 Patient encounter procedure Ezekiel Christian [facility] Start: 06-16-2023 End: 06-17-2023 ambulatory Alex DESOUZAWU [place] Start: 06-16-2023 End: 06-17-2023 Observation Alex ZAMANU [facility] Start: 02-23-2023 End: 02-23-[address] SHELDON CARVAJAL . Facility: Start: 02-01-2023 End: 02-02-2023 ambulatory CORRINA Dorman Facility:[facility] Start: 01-12-2023 End: 01-13-2023 ambulatory STYRENE DEHYDRATION REACTOR OPERATOR BREA AICHHOLZ Facility:[facility] Start: 01-03-2023 End: 01-04-2023 ambulatory STYRENE DEHYDRATION REACTOR OPERATOR BREA AICHHOLZ Facility:[facility] Start: 12-24-2022 End: 12-24-2022 ambulatory TOSHIA SAM [facility] Start: 11-04-2022 End: 11-05-2022 ambulatory STYRENE DEHYDRATION REACTOR OPERATOR BREA AICHHOLZ Facility:[facility] Start: 07-28-2022 End: 07-29-2022 ambulatory STYRENE DEHYDRATION REACTOR OPERATOR BREA AICHHOLZ Facility:[facility] Start: 04-30-2022 End: 05-01-2022 ambulatory STYRENE DEHYDRATION REACTOR OPERATOR BREA AICHHOLZ Facility:[facility] Start: 03-26-2022 End: 03-26-2022 ambulatory STYRENE DEHYDRATION REACTOR OPERATOR BREA AICHHOLZ Facility:[facility] Start: 06-15-2021 End: 06-16-2021 ambulatory TOSHIA SAM Facility:[facility] Procedures Date Procedure Procedure Detail Performing Clinician Start: 04-14-2023 Mammography Brea Aicheatherh salome SCIENTIFIC SOFTWARE ENGINEER Work Phone: Start: 03-31-2020 Colonoscopy Brea Cheleh olz SCIENTIFIC SOFTWARE ENGINEER Work Phone: Start: 05-05-1987 section Elijah Christian Start: 06-20-1984 section Elijah Christian Cyst (disorder) Ezekiel Allen solorzano Comment on above: Removal of cyst of r ight foot. Knee region structur e (body structure) Ezekiel Anahi Comment on above: surgery Plan of Treatment Date Care Activity Detail Author Start: 03-31-2030 Screening for malign ant neoplasm of colon [facility] Start: 06-23-2028 Screening for malign ant neoplasm of cervix [facility] Start: 01-29-2025 Glaucoma screening Diabetes: R etinopathy Screening [facility] Start: 04-29-2024 Influenza vaccination Influenza Vacc ine (#1) [facility] Comment on above: Postponed from 07/01 (Patient Refused) Start: 04-14-2024 Screening for malign ant neoplasm of breast Mammogram [facility] Start: 04-14-2024 Urine screening for protein Diabetes: Urine Protein Screening [facility] Start: 01-25-2024 Hemoglobin A1c measurement Diabetes: Hemoglobin A1C [facility] Start: 01-10-2024 End: 01-10-2024 Patient encounter procedure 01/10/2024 9:00 AM EDT Office Visit [facility] [address] [place] [address] Brea Jj, TOBIAS [address] [place] [id number] [facility] Start: 1985 Screening for malign ant neoplasm of cervix Pap Smear [facility] Start: 1965 Screening for malign ant neoplasm of colon [facility] Payers Date Payer Category Payer Medicaid [employer] [employer] [id number] 2020-Present [address] [place] [address] [id number] 1965 Unknown [id number] 2.16.840.1.825837.3.579.2.647 1965 Unknown [id number] 2.16.840.1.580419.3.579.2.593 1964 Unknown [id number] 2.16.840.1.971688.3.579.2.593 1964 Unknown [id number] 2.16.840.1.378403.3.579.2.593 1964 Unknown [id number] 2.16.840.1.689365.3.579.2.593 1964 Unknown [id number] 2.16.840.1.149271.3.579.2.593 1964 Unknown [id number] 2.16.840.1.880760.3.579.2.593 1964 Unknown [id number] 2.16.840.1.072089.3.579.2.593 1964 Unknown [id number] 2.16.840.1.833010.3.579.2.593 1964 Unknown [id number] 2.16.840.1.384993.3.579.2.727 1964 Unknown [id number] 2.16.840.1.185151.3.579.2.727 1964 Unknown [id number] 2.16.840.1.326834.3.579.2.727 1964 Unknown [id number] 2.16.840.1.402996.3.579.2.727 1964 Unknown [id number] 2.16.840.1.229888.3.579.2.727 1964 Unknown [id number] 2.16.840.1.933810.3.579.2.727 1964 Unknown [id number] 2.16.840.1.444917.3.579.2.727 1964 Unknown [id number] 2.16.840.1.440792.3.579.2.727 1964 Unknown [id number] 2.16.840.1.092909.3.579.2.727 1964 Unknown [id number] 2.16.840.1.876364.3.579.2.1259 1964 Unknown [id number] 2.16.840.1.610310.3.579.2.1259 1964 Unknown [id number] 2.16.840.1.758180.3.579.2.9 1964 Unknown [id number] 2.16.840.1.562639.3.579.2.1259 1959 Unknown [id number] Social History Date Type Detail Facility Tobacco Former smoker [facility] Comment on above: 1/2 pack a day Tobacco smoking status No Smokin g Status Entered [facility] Start: 04-21-2023 End: 12-05-2023 Sex Assigned At Female [facility] Start: 06-28-2023 End: 10-19-2023 Tobacco smoking status Ex-smoker (finding) [facility] Comment on above: Quit 06/19/23 1/2 [...] [facility] Start: 04-20-2023 Sexual orientation Heterosexual (fin ding) [facility] Medical Equipment Procedure Code Equipment Code Equipment Origin al Text Equipment Identifier Dates USE ONCE DAILY A S DIRECTED [id number] Start: 03-17-2023 Functional Status Date Assessment Result Facility 09-25-2023 Functional Status N/A [facility] 09-08-2023 Functional Status N/A [facility] 06-16-2023 Functional Status N/A [facility] 06-16-[address] [facility] Clinical Notes 12-24-2022 to 01-16-2024 Brea Jj, TOBIAS - 12/05/2023 9:41 AM Gretchen Jj, SCIENTIFIC SOFTWARE ENGINEER - 12/05/2023 9:41 AM Gretchen Jj, SCIENTIFIC SOFTWARE ENGINEER - 12/05/2023 9:40 AM ESTBrea Jj, SCIENTIFIC SOFTWARE ENGINEER - 12/05/2023 9:40 AM EST Note Date & Type Note Facility 01-16-2024 Evaluation + Plan note Diagnostic Tests PendingMethylmalonic Acid 01/16/24 [facility] 12-05-2023 History of Present illness Narrative [...] Medical History: Diagnosis Date Anxiety and depression ([facility]) 10/12/2023 Arthritis Class 2 severe obesity due to excess calories with serious comorbidity in adult ([facility]) 10/19/2023 COPD (chronic obstructive pulmonary disease) ([facility]) Fibrocystic breast disease Mixed hyperlipidemia ([facility]) 10/12/2023 ROLANDO (obstructive sleep apnea) Other insomnia 10/19/2023 Primary hypertension ([facility]) 10/12/2023 Restless leg syndrome 10/12/2023 Type 2 diabetes mellitus without complication, without long-term current use of insulin ([facility]) 10/19/2023 Past Surgical History: Procedure Laterality Date [...] Relevant Medications clonazePAM (KlonoPIN) 0.5 MG tablet [place] (obstructive sleep apnea) Stressed importance of PAP Tobacco dependence syndrome COPD mixed type (CMS/HCC) Continue with pulmonology Recommend Pneuomovax BMI 37.0-37.9, adult documented in this encounter [facility] 09-25-2023 Hospital Discharge instructions Patient Education 09/25/2023 [...] Follow these instructions at home: Medicines Take btbs-jeb-xalghvx and prescription medicines only as told by [...] important. Where to find more information [employer] [place] of Diabetes and Digestive and Kidney Diseases: [...] provider. Document Revised: 09/08/2020 Document Reviewed: 09/08/2020 [employer] Patient Education 2022 [employer]. Follow Up Care 09/25/2023 18:11:16 With:[facility] Address: [address] [place] [address] 3, [address] Floor, [address] [place] [address]- [phone] Business (1) When:09/28/2023 21:47:26 With:BREA JJ Address: [address] [place] [address] [phone] Business (1) When:Within 3 Day(s) [facility] 09-25-2023 Evaluation + Plan note Extrac aura from: Title:ED Note Author:Moses Fischer DO Date :09/25/23 AP (abdominal pain) (R10.9: Unspecified abdominal pain) Cholelithiasis (K80.20: Calculus of gallbladder without cholecystitis without obstruction) N&V (nausea and vomiting) (R11.2: Nausea with vomiting, unspecified) Orders: dicyclomine, 10 mg = 1 cap(s), Oral, QID, X 7 day(s), # 28 cap(s), Refills(s) 0, Pharmacy: [facility], 175, cm, 09/25/23 18:25:00 EST, Height/Length [...] Comprehensive Metabolic Panel 12/27/23 * D-Dimer 12/27/23 [facility]11-09-2023 Hospital Discharge instructions Patient Education 09/08/2023 [...] Follow these instructions at home: Medicines Take ssum-yat-jxnlbcn and prescription medicines only as told by [...] provider. Document Revised: 12/31/2021 Document Reviewed: 12/31/2021 [employer] Patient Education 2022 [employer]. Follow Up Care 09/08/2023 16:32:40 With:BREA JJ Address: [address] [place] [phone] Business (1) When:Within 3 Day(s) [facility]11-09-2023 Evaluation + Plan noteExtracted from: Title:ED [...] Comprehensive Metabolic Panel 12/27/23 * D-Dimer 12/27/23 [facility] Chief Complaint: Patient here for 6 mo follow up hypertension and coronary-myocardial bridge. Says she was admitted [place] [facility] [place] for chest pain. Says she was diagnosed with PE. 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 She [...] history of COPD (chronic obstructive pulmonary disease) ([facility]), Diabetes mellitus ([facility]), Hyperlipidemia, Hypertension, and Sleep apnea. Surgical History [...] edema History of pu (more content not included)...[facility] 07-19-2023 Hospital Discharge instructions Follow Up Care 07/19/2023 10:53:55 With:Swapna ANGUIANO, GUCCI Dill Address: [place] [address] [phone] When: Unknown Comments:iron studies, b12, folate, mma todayfollow-up in 6mo with SCIENTIFIC SOFTWARE ENGINEER [facility]08-29-2023 Hospital Discharge instructions Follow Up Care 06/28/2023 11:35:56 With:Roby Bob Address: [address] [phone] Business (1) When: Unknown Comments:Continue ELiquis for 6 months total.D dimer, CBCD and CMP end of December 2023.RTC end of December,sooner if new SOB or CP or Leg pain or swelling or bleeding. [facility]08-18-2023 NoteEchocardiology Procedure Exam Date/Time Accession # Ordering Echo Transthoracic 06/17/2023 15:26 EDT [id number] JANETTE BOOTHE, Mbanefo Complete CPT code 79625 [id number] Reason for Exam (Echo Transthoracic Complete) Acute pulmonary embolism;Other (please specify) Report [address] [address] Adult Echocardiogram Report Name: ALIYA MOORE Study Date: 06/17/2023 02:55 PM BP: 132/70 mmHg Patient [facility]: [facility]13 01 [facility] HR: 85 : 1965 Gender: Female Age: 57 yrs Ethnicity: WHT Weight: 251 lb Reason For Study: Other [...] Satinder RODNEY MD Transcribed by: SENTHIL Technologist: [facility]08-18-2023 Note Admission and Discharge Information Admitting Physician - JANETTE BOOTHE, Kerrianefo Admitting Diagnoses: Discharge Order Date Discharge Patient [...] female cigarette smoker with history of hypertension, zlx-mqdkktu-ayxgcvanl diabetes mellitus type 2, obesity, chronic hypoxic respiratory failure on 3 L home oxygen, depressionpresented with complaints of right-sided chest pain. 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 Significant Findings (06/16/2023 19:59 EDT US LE [...] 75.7 % Lymph Auto - 14.3 % Price Auto - 8.8 % Eos Auto - 0.9 % Basophil Auto - 0.3 % Neutro Absolute - 6.4 E9/L Lymph Absolute - 1.2 E9/L Price Absolute - 0.7 E9/L Eos Absolute - [...] - 133 mg/dL POC Device SN - [id number] POC User ID - [id number] POC Username - FAVIOLA MURO CBC w/ [...] Discharge Plan Discharge D (more content not included)...[facility]Result Comment: Electronically Signed By: JANETTE BOOTHE, Alex\.br\Date and Time Signed: 06/17/23 14:21 [id number] Hospital Discharge instructions Patient Education 06/17/2023 14:17:33 [...] Follow these instructions at home: Medicines Take razj-ift-npwponk and prescription medicines only as told by [...] is important. Where to find more information [place] [employer]: www.lung.org Centers for Disease Control [...] provider. Document Revised: 09/18/2021 Document Reviewed: 09/18/2021 [employer] Patient Education 2022 Ezetap. Follow Up Care 06/16/2023 15:48:06 With:BREA JJ Address: [address] [place] [address] [phone] Business (1) When:1 week Comments:A voice message is left with this office with your information so they can call you for a follow upappiontment. Please call them if you do not hear from them in a few days. Thank you. With:Ezekiel Christian Address: [facility] [address] [place] [address]. [place] [address]- When:06/28/2023 11:00:00 [facility]08-18-2023 Evaluation + Plan noteExtracted from: Title:Discharge [...] puff(s), Inhalation, BID fluticasone Nasal 0.05 mg/inh [place], 2 spray(s), Nasal, Daily furosemide 20 mg Tab, 20 mg= 1 tab(s), Oral, Daily gabapentin 300 mg Cap, 300 mg= 1 cap(s), Oral, BID hydrochlorothiazide-lisinopril 25 mg-20 mg Tab, 1 tab(s), Oral, Daily lamotrigine 25 mg Tab, 25 mg= 1 tab(s), Oral, BID pioglitazone 15 mg Tab, 15 mg= 1 tab(s), Oral, Daily Potassium Chloride (Euy-Otxw-Mbm 10) 10 mEq oral tablet, extended release pramipexole 0.5 mg oral tablet, 0.5 mg= 1 tab(s), Oral, TID theophylline 300 mg ER Tab, 300 mg= 1 tab(s), Oral, q12hr traZODONE 50 mg Tab, 50 mg= 1 tab(s), Oral, Once a day (at bedtime) Ventolin HFA 90 mcg/inh Aerosol-Adpt, 1 puff(s), Inhalation, QID, PRN With When Contact Information Ezekiel Christian 06/28/2023 11:00 AM EDT [facility] [address] [place] [address]- Additional Instructions: BREA JJ Within 1 week [address] [place] [address] [phone] Business (1) Additional Instructions: A voice message is left with this office with your information so they can call you for a follow up appiontment. Please call them if you do not hear from them in a few days. Thank you. Pulmonary Embolism Extracted from: Title:Admission H & P Author:JANETTE BOOTHE, Alex Date:06/16/23 57-year-old female cigarette smoker with history of hypertension, jop-dzrfezw-aolgmhccv diabetes mellitus, obesity, chronic hypoxic respiratory failure [...] Ordered: Initial Hospital Care/Day High 75 Minutes 28312 2. Acute pulmonary embolism (I26.99: Other pulmonary [...] Ordered: Initial Hospital Care/Day High 75 Minutes 94946 3. Sinus tachycardia (R00.0: Tachycardia, unspecified) Secondary to above acute pulmonary embolism. Monitor on telemetry. Ordered: Initial Hospital Care/Day High 75 Minutes 31927 4. COPD without exacerbation (J44.9: Chronic obstructive pulmonary disease, unspecified) Supportive care. Continue on nebulizer treatments. Ordered: Initial Hospital Care/Day High 75 Minutes 35558 5. Hypertension (I10: Essential (primary) hypertension) We will verify home medications and resume accordingly. Ordered: Initial Hospital Care/Day High 75 Minutes 90878 6. Diabetes mellitus (E11.9: Type 2 diabetes [...] vein thrombosis (DVT) prophylaxis (Z79.899: Other intermediate accountant (current) drug therapy) Eliquis. The patient will [...] made to ensure accuracy. However inadvertent computerized duty officer errors may be present. Alex Barrientos. Hospitalist. [...] deep vein thrombosis (DVT) prophylaxis (Z79.899: Other snf (current) drug therapy) 4. COPD without exacerbation [...] Appointments Appointment Date:06/28/2023 11:00:00 AM Scheduled Provider: [facility] Type:[facility] Office Visit [address]08-18-2023 Hospital Discharge instructions Follow Up Care 06/17/2023 09:42:41 With:Roby Bob Address: [facility] [address] [place] [phone] Business (1) When: Unknown Comments:THrombophilia labs now with D dimer.D dimer in 3 weeks if D dimer from now is still high.Continue Eliquis 5 mg twice daily for minimum of 6 months.RTC in 3 weeks for results. [facility]08-17-2023 NoteChief Complaint CP started this afternoon while sitting down. states mid sternal CP 10/10. wears 3L O2 all the time. History of Present Illness 57-year-old female cigarette smoker with history of hypertension, kzd-dtdcgkv-vbgdlugqd diabetes mellitus, obesity, chronic hypoxic respiratory failure [...] 16:00:00) Lymph Auto: 14.3 % (06/16/23 16:00:00) Price Auto: 8.8 % (06/16/23 16:00:00) Eos Auto: 0.9 % (06/16/23 16:00:00) Basophil Auto: 0.3 % (06/16/23 16:00:00) Neutro Absolute: 6.4 E9/L (06/16/23 16:00:00) Lymph Absolute: 1.2 E9/L (06/16/23 16:00:00) Price Absolute: 0.7 E9/L (06/16/23 16:00:00) Eos Absolute: [...] RIGHT LOWER LOBE. E (more content not included)...[facility] Result Comment: Electronically Signed By: JANETTE BOOTHE, Mbarronfo\.br\Date and Time Signed: 06/16/23 19:05 [id number] NoteStable, f[facility] NoteCurrently well controlled with lasix [facility]02-24-2023 NoteNo concerning symptoms, overall she is doing well.[facility]02-24-2023 Note Hypertension is well controlled 102/62 Continue lisinopril/HCTZ, lasix Renal function normalUnSelect [facility] [place]-2023 NotePatient here for 6 mo follow up hypertension and myocardial bridge of coronary artery. Had labs in Jul 2022. Denies chest pain and lightheadedness. Review of Systems Cardiovascular: Positive for dyspnea on exertion. Respiratory: Positive for cough and shortness of breath. Musculoskeletal: Positive for arthritis, back pain and joint pain. Neurological: Positive for headaches. All other systems reviewed and are negative.[facility] 12-24-2022 NoteUTP CARDIOLOGY PROGRESS NOTE HPI: [...] most likely r/t pulmo (more content not included)...[facility] 12-24-2022 NoteProvider had extended 10 min discussion again with patient about smoking cessation, at this time she doesn't want to take any further medication or that she is ready to quit smoking at this time.[facility] Evaluation + Plan note Future Appointments Appointment Date:07/19/2023 10:00:00 AM Scheduled Provider: Location:.ONCOLOGY Appointment Type:ONC Office Visit 30 (FT) [facility] Future Appointments Appointment Date:01/16/2024 09:00:00 AM Scheduled Provider: [facility] Appoint[facility] Type:ONC Office Visit 30 (FT) Future Scheduled Tests Laboratory* CBC w/ Auto Diff 12/27/23 * Comprehensive Metabolic Panel 12/27/23 * D-Dimer 12/27/23 [facility] Future Appointments Appointment Date:01/16/2024 11:30:00 AM Scheduled Provider:Mariama Moore [facility] Type:ONC Office Visit 30 (FT) [facility] Diagnosis Other insomnia- Primary ROLANDO (obstructive sleep apnea) Obstructive sleep apnea (adult) (pediatric) COPD mixed type (CMS/HCC) Tobacco dependence syndrome Tobacco use disorder BMI 37.0-37.9, adult Anxiety and depression ([facility]/HCC) Restless leg syndrome Restless legs syndrome (RLS) [facility] Diagnosis Anxiety and depression (CMS/HCC)- Primary Type 2 diabetes mellitus without complication, without long-term current use of insulin (CMS/[facility]) Arthritis Unspecified arthropathy, site unspecified [facility] Narrative No data available for this section [facility] No data available for this section [facility] No data available for this section [facility] Summary Purpose Family History No Family [...] and content) DATE CREATED AUTHOR 06/22/2021 [facility] DATE CREATED AUTHOR AUTHOR'S ORGANIZ ATION 12/15/2021 [facility] DATE CREATED AUTHOR AUTHOR'S ORGANIZ ATION 02/26/2023 [facility] DATE CREATED AUTHOR AUTHOR'S ORGANIZ ATION 09/10/2023 [facility] DATE CREATED AUTHOR AUTHOR'S ORGANIZ ATION 01/24/2024 [facility] DATE CREATED AUTHOR AUTHOR'S ORGANIZ ATION 02/22/2024 [facility] dical Specialists EPIC Patient Care team informatio n (unrecognized section and content) Chief Electrician Relationship Specialty Start Date End Date Jose M Light MD [address] [place] [address] PCP - General Family Medicine 10/18/23 Brea Jj NP [address] [place] [phone] Nurse Practitioner Family Medicine 10/18/23 Chief Electrician Relationship Specialty Start Date End Date Jose M Light MD [address] [place] [phone] PCP - General Family Medicine 10/18/23 Brea Jj NP [address] [place] [phone] Nurse Practitioner Family Medicine 10/18/23 Reason for [...] BE BASED ON THE PRIMARY CLINICAL RECORDS. [employer] provides no warranty or guarantee of the accuracy or completeness of information in this document.
[2024-05-25 11:00] LABS: Anion Gap 11.4; BUN Creatinine Ratio 18.6; Calcium 9.9 mg/dL (8.5-10.1); Carbon Dioxide 32.6 mmol/L (21.0-32.0); Chloride 100 mmol/L (98-107); Estimated GFR (African America >60 (>=60); Estimated GFR (Non-African Ame >60 (>=60); Glucose 114 mg/dL (74-106); Sodium 140 mmol/L (136-145)
[2024-05-25 11:24] LABS: Free T4 0.96 ng/dL (0.76-1.46)
== END 2024-05-25 09:47 | disposition home or self-care (01) ==
LOC: LAB 09:47
PROVIDERS: PCP Nurse Practitioner; Visit Provider Nurse Practitioner
DX: R53.83 Other fatigue (principal); E11.9 Type 2 diabetes mellitus without complications
CPT/HCPCS: 36415; 80048; 82607; 83540; 84439; 84443; 85025

== ENCOUNTER 2024-05-29 09:19 | Outpatient (OUT) | payer OTHER, SELFPAY ==
--- NOTE | 2024-05-29 09:23 | CT_ITS ---
[address] [address] Patient Name: ALIYA CONDON MRN: [id number] date: 1965 Sex: F Assigned Patient Location: CT Current Patient Location: CT Accession/Order Number: [id number] Exam Date: 05/29/2024 09:29 Report Date: 05/29/2024 16:02 At the request of: CORRINA GAINES Procedure: CT lung screening low-dose EXAMINATION: CT lung screening low-dose HISTORY: Nicotine Dependence F17.219 COMPARISON: 06/16/2023 from an outside institution TECHNIQUE: Axial, Coronal, and Sagittal images were created without the administration of IV contrast material.Dose reduction techniques were achieved by using automated exposure control and/or adjustment of mA and/or kV according to patient size and/or use of iterative reconstruction technique. FINDINGS: LUNGS: Minimal paraseptal emphysema with an upper lobe predominance. No significant pulmonary nodule or mass PLEURA: No mass, effusion, or pneumothorax. VASCULATURE: No abnormality. CYNDI: No mass or pathologic adenopathy. MEDIASTINUM: No mass or pathologic adenopathy. CARDIAC: No enlargement or pericardial effusion CORONARY ARTERIES: Coronary calcifications are moderate. AORTA: No aortic aneurysm. Mild to moderate atherosclerosis CHEST WALL: No mass or axillary adenopathy BONES: No bone lesion or fracture. LIMITED ABDOMEN: No suspicious findings. Limited images of the upper abdomen. OTHER: Negative. CT/CT lung screening low-dose IMPRESSION: LUNG SCREENING: Lung-RADS Category 1 Negative. No nodules and definitely benign nodules. Continue annual screening with LDCT in 12 months. Electronically authenticated by: LEANA DAVIDSON Date: 05/29/2024 16:02
--- OUTSIDE RECORDS SUMMARY | 2024-05-29 09:32 | XMS_ITS | CCD ---
Author Organization 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 Name Role Phone TOSHIA SAM Attending Unavailable TOSHIA SAM Admitting Unavailable SELF, REFERRED Referring Unavailable SELF, REFERRED Primary Care Unavailable AICHHOLZ, POWERSAW SUPERVISOR BREA Primary Care Unavailable SAMSA ., CORRINA Consulting Unavailable SAMSA ., CORRINA Admitting Unavailable SAMSA ., CORRINA Attending Unavailable AICHHOLZ, POWERSAW SUPERVISOR BREA Attending Unavailable AICHHOLZ, POWERSAW SUPERVISOR BREA Consulting Unavailable AICHHOLZ, POWERSAW SUPERVISOR BREA Primary Care Unavailable AICHHOLZ, POWERSAW SUPERVISOR BREA Admitting Unavailable AICHHOLZ, POWERSAW SUPERVISOR BREA Primary Care Unavailable DR MIGUEL MEDEROS Consulting Unavailable SAMSA ., CORRINA Admitting Unavailable SAMSA ., CORRINA Attending Unavailable SAMSA ., CORRINA Consulting Unavailable SAMSA ., CORRINA Attending Unavailable SAMSA ., CORRINA Consulting Unavailable SAMSA ., CORRINA Admitting Unavailable AICHHOLZ, POWERSAW SUPERVISOR BREA Primary Care Unavailable AICHHOLZ, POWERSAW SUPERVISOR BREA Attending Unavailable DR LEANA AYOUB V Consulting Unavailable AICHHOLZ, POWERSAW SUPERVISOR BREA Primary Care Unavailable AICHHOLZ, POWERSAW SUPERVISOR BREA Admitting Unavailable AICHHOLZ, POWERSAW SUPERVISOR BREA Consulting Unavailable PAY ., DR SALAZAR Admitting Unavailable PAY ., DR SALAZAR Attending Unavailable PAY ., DR SALAZAR Consulting Unavailable AICHHOLZ, POWERSAW SUPERVISOR BREA Primary Care Unavailable JUAN JOHNSON Consulting UnavailJustine Kauffman Consulting Unavailable AICHHOLZ, POWERSAW SUPERVISOR BREA Primary Care Unavailable PAY ., DR SALAZAR Attending Unavailable PAY ., DR SALAZAR Admitting Unavailable QUETA .JUAN Consulting Unavailabl e POLICARO, KENDY Consulting Unavailable AICAYO, POWERSAW SUPERVISOR BREA Attending Unavailable AICHHOLZ, ENRIQUE BREA Consulting Unavailable AICHHOLZ, POWERSAW SUPERVISOR BREA Primary Care Unavailable AICHHOLDania, POWERSAW SUPERVISOR BREA Admitting Unavailable AICHHOLZ, BREA J Primary Care Physician SPENCERSubhash HASTINGSie Unavailable TOSHIA SAM Attending Unavailable MARLENE SOTO Attending Unavailable Aichholz Brea COLLADO Unavailable Jose M Light MD Primary Care Provider Roby Bob Attending Unavailabl e Al-Marramarielle, Roby Davis Admitting Unavailabl e OJUKWU, Mbanefo [...] Medication Allergies] Propensity to adverse reactions (disorder) [facility] Repository Medications Current Medications Medication Drug Class(es) Dates Sig (Normalized) Sig (Original) [id number] 200 actuat albuterol 0.09 mg/actuat metered dose [...] BID, # 180 tab(s), Refills(s) 3, Pharmacy: [facility] 1155, 175, cm, 06/28/23 10:58:00 EDT, Height/Length Dosing, 114.6, kg, 06/28/23 10:58:00 EDT, Weight Dosing Start Date: 06/28/23 Status: Ordered Start: 06-17-2023 take 2 tablets by mo [facility] twice daily, then take 1 tablet by [...] day(s), # 28 cap(s), Refills(s) 0, Pharmacy: [facility] 1155, 175, cm, 09/25/23 18:25:00 EST, Height/Length [...] Start: 06-17-2023 fluticasone Na margaret 0.05 mg/inh [place] 2 spray(s), Nasal, Daily, 16 gram, Refill(s) [...] Chloride (11 sources) Start: 06-17-2023 Potassium Chloride (Xas-Qccc-Alg 10) 10 mEq oral tablet, extended release [...] 12-05-2023 12-05-2023 Chronic Other aftercare (1 source) alf (current) use of aspirin; Translations: [AMMUNITION STOREKEEPER CURRENT USE OF ASPIRIN] Onset: 02-26-2023 Episodic Other aftercare (1 source) Other machine i cutter (current) drug therapy; Translations: [OTH AMMUNITION STOREKEEPER CURRENT DRUG THERAPY] Onset: 02-26-2023 Episodic Other aftercare (1 source) Long-term current use of drug therapy; Translations: [Other machine i cutter (current) drug therapy] Onset: 06-16-2023 Episodic Other [...] [Moles/Vol] 301 nmol/L Invalid Interpretation Code 0-378 [facility] Comment on above: Result Comment: This test was developed and its performance characteristics determined by [employer]. It has not been cleared or approved by the Food and Drug Administration. Performed at: [facility] [id number] MD Tony Laird Performed By: #### 2 817729, 7823175, 9758807, 4955770, 9226257, 1352625, 41058792 ####[facility] [address] [place] [address] Oncology Progress Noteon Oncology Progress Note Chief Complaint PE Pt states she has had a couple visits to hosp. Poss Gallbladder. Pt just has ques on how blood work results are. Diagnoses 1. History of pulmonary embolism (Z86.711: Personal history of pulmonary embolism) Oncological History/ROS/PE/Assess ment and Plan Aliya was referred to our hematology office at [facility] for Thrombophilia work up and decision about duration of anticoagulation for the acute PE diagnosed on . She is a 57-year-old female cigarette smoker with history of hypertension, wmb-pzdztam-csbpbnynz diabetes mellitus, obesity, chronic hypoxic respiratory failure on 3 L home oxygen, and depression who presented on 06/16/23 to [facility] ER with complaints of right-sided chest [...] cramping a lot. has had colonoscopy at [facility] Physical Examination General: alert, no acute [...] Contact Information Swapna ANGUIANO, Mariama Chen, ONC [facility] [address] [place] [phone] Additional Instructions: iron studies, b12, folate, mm (more content not included)... Normal [facility] CHEMISTRYOrdered By: SYSTEM SYSTEM on 01-16-2024 Cobalamin [...] Treatmenton 12-29 Consent for Treatment [id number]#1 .00TIFF Normal [facility] Consent for Treatment [id number]#1 .00TIFF Normal [facility] Ferritinon 01-16-2024 Ferritin [Mass/Vol] 63 ng/mL Normal 11-307 [facility] Comment on above: Performed By: #### 2 416822, 3803938, 6401136, 4299984, 9752660, 8887096, 17101284 ####[facility] [address] [place] [address] Folateon 01-16-2024 Folate [Mass/Vol] 15.3 ng/mL Normal >=6.7 [facility] Comment on above: Performed By: #### 2 818593, 9719721, 8270798, 2208408, 1536853, 1113273, 55946432 ####[facility] [address] [place] [address] Ironon 01-16-2024 Iron [Mass/Vol] 63 microgram/dL Normal 35-153 [facility] Comment on above: Performed By: #### 2 252288, 3930514, 0383233, 9344721, 5977494, 7828980, 23841448 ####[facility] [address] [place] [address] Iron Saturationon 01-16-2024 Iron binding capacity [Mass/Vol] 365 microgram/dL Normal 250-400 [facility] Comment on above: Performed By: #### 2 162969, 1881231, 8082829, 8781544, 3923938, 4096409, 01298830 ####[facility] [address] [place] [address] Iron saturation [Mass fraction] 17 % Low 20-50 [facility] Comment on above: Performed By: #### 2 505631, 5895841, 2378233, 6179509, 5636291, 7229812, 17969984 ####[facility] [address] [place] [address] Transferrinon 01-16-2024 Transferrin [Mass/Vol] 261 mg/dL Normal 200-370 [facility] Comment on above: Performed By: #### 2 455151, 3092000, 2531781, 7900847, 1854400, 8522614, 75929179 ####[address] [address] Vit B12on 01-16-2024 Cobalamin (Vitamin B12) [Mass/Vol] 420 pg/mL Normal 50-1500 [facility] Comment on above: Performed By: #### 2 894757, 6349581, 5554591, 3993324, 7111278, 7879841, 92668334 ####[address] [address] CBC w/ Auto Diffon 4 Basophils/100 WBC (Bld) 0.6 % Normal 0.0-2.0 [facility] Comment on above: Performed By: #### 2 220392, 3040613, 1768369, 87477603 ####[address] [place] [address] Basophils/Leukocytes Auto (Bld) [Pure # fraction] 0.0 E9/L Normal 0.0-0.2 [facility] Comment on above: Performed By: #### 2 882658, 4164233, 0523274, 59922247 ####[address] [place] [address] Eosinophils (Bld) [#/Vol] 0.2 E9/L Normal 0.0-0.5 [facility] Comment on above: Performed By: #### 2 064309, 6343354, 7577975, 17148618 ####[address] [address] Eosinophils/100 WBC (Bld) 3.0 % Normal 0.0-8.0 [facility] Comment on above: Performed By: #### 2 479180, 9864777, 6736034, 11843803 ####[address] [address] Erythrocyte distribution width (RBC) [Ratio] 15.7 % High 10.9-14.2 [facility] Comment on above: Performed By: #### 2 188283, 1024697, 0298681, 49576425 ####[address] [address] Hematocrit (Bld) [Volume fraction] 36.9 % Normal 34.0-46.0 [facility] Comment on above: Performed By: #### 2 650098, 7549448, 4682775, 02834750 ####[address] [address] Hemoglobin (Bld) [Mass/Vol] 12.4 g/dL Normal 12.0-16.0 [facility] Comment on above: Performed By: #### 2 225554, 1764762, 3692578, 26412606 ####[address] [address] Lymphocytes (Bld) [#/Vol] 1.4 E9/L Normal 1.0-4.0 [facility] Comment on above: Performed By: #### 2 419264, 9801467, 8114645, 20830143 ####[address] [address] Lymphocytes/100 WBC (Bld) 20.7 % Normal 14.0-50.0 [facility] Comment on above: Performed By: #### 2 449901, 4418373, 1359094, 95098318 ####[address] [address] MCH (RBC) [Entitic mass] 29.5 pg Normal 27.0-34.0 [facility] Comment on above: Performed By: #### 2 346167, 1762820, 0943820, 00881580 ####[address] [address] MCHC (RBC) [Mass/Vol] 33.6 g/dL Normal 31.4-36.0 [facility] Comment on above: Performed By: #### 2 686223, 5605152, 4057859, 11704198 ####[address] [address] MCV (RBC) [Entitic vol] 87.9 fL Normal 80.0-100.0 [facility] Comment on above: Performed By: #### 2 950349, 5169374, 2277188, 33756003 ####[address] [address] Monocytes (Bld) [#/Vol] 0.6 E9/L Normal 0.2-1.0 [facility] Comment on above: Performed By: #### 2 411691, 1009385, 9556846, 68565635 ####[address] [address] Neutrophils (Bld) [#/Vol] 4.5 E9/L Normal 2.0-7.5 [facility] Comment on above: Performed By: #### 2 153622, 3505076, 0498761, 90352006 ####[address] [address] Neutrophils/100 WBC (Bld) 66.7 % Normal 36.0-75.0 [facility] Comment on above: Performed By: #### 2 570644, 7634024, 7480662, 57204396 ####[address] [place] [address] Platelet mean volume (Bld) [Entitic vol] 10.3 fL Normal 6.4-10.8 [facility] Comment on above: Performed By: #### 2 790404, 3563651, 7168104, 03804268 ####[facility] [address] [place] [address] Platelets (Bld) [#/Vol] 196.0 E9/L Normal 150.0-500.0 [facility] Comment on above: Performed By: #### 2 646973, 6082995, 1452262, 49791207 ####[address] [address] RBC (Bld) [#/Vol] 4.2 E12/L Low 4.3-5.9 [facility] Comment on above: Performed By: #### 2 581128, 7606436, 1556228, 42265490 ####[facility] [address] [place] [address] WBC corrected for nucl RBC Auto (Bld) [#/Vol] 6.8 E9/L Normal 4.0-11.0 [facility] Comment on above: Performed By: #### 2 517609, 2708817, 3061339, 85295201 ####[facility] [address] [place] [address] CHEMISTRYOrdered By: SYSTEM SYSTEM on 01-09-2024 Albumin [...] 01-09-2024 Albumin [Mass/Vol] 4.1 g/dL Normal 3.3-5.0 [facility] Comment on above: Performed By: #### 2 997406, 0349753, 8186703, 95488761 ####[facility] [address] [place] [address] Albumin/Globulin (S) [Mass conc ratio] 1.2 Normal 1.1-2.2 [facility] Comment on above: Performed By: #### 2 934401, 4996154, 3110431, 23402179 ####[facility] [address] [place] [address] ALP [Catalytic activity/Vol] 61 Int._Unit/L Normal 21-98 [facility] Comment on above: Performed By: #### 2 995823, 5133839, 2385310, 87652603 ####[facility] [address] [place] [address] ALT No additional P-5'-P [Catalytic activity/Vol] 17 Int._Unit/L Normal 6-46 [facility] Comment on above: Performed By: #### 2 767069, 6589885, 2984844, 38152713 ####[facility] [address] [place] [address] Anion gap [Moles/Vol] 12 mmol/L Normal 6-16 [facility] Comment on above: Performed By: #### 2 177807, 9771297, 7014949, 45044691 ####[facility] [address] [place] [address] AST [Catalytic activity/Vol] 18 Int._Unit/L Normal 5-43 [facility] Comment on above: Performed By: #### 2 150768, 8503227, 0516370, 05530493 ####[facility] [address] [place] [address] Bilirubin [Mass/Vol] 0.4 mg/dL Normal 0.0-1.1 [facility] Comment on above: Performed By: #### 2 290620, 2247956, 3535944, 40092594 ####[facility] [address] [place] [address] Calcium [Mass/Vol] 9.8 mg/dL Normal 8.9-11.1 [facility] Comment on above: Performed By: #### 2 694060, 2280902, 2410658, 01765619 ####[facility] [address] [place] [address] Chloride [Moles/Vol] 101 mmol/L Normal 101-111 [facility] Comment on above: Performed By: #### 2 545193, 5985874, 5687894, 65388801 ####[facility] [address] [place] [address] CO2 [Moles/Vol] 28 mmol/L Normal 21-31 [facility] Comment on above: Performed By: #### 2 922011, 7303395, 0099200, 84861223 ####[facility] [address] [place] [address] Creatinine [Mass/Vol] 1.0 mg/dL Normal 0.5-1.3 [facility] Comment on above: Performed By: #### 2 506811, 4006333, 4313325, 71611666 ####[facility] [address] [place] [address] Globulin (S) [Mass/Vol] 3.4 g/dL Normal 1.4-4.0 [facility] Comment on above: Performed By: #### 2 067130, 6533814, 9957739, 98615686 ####[facility] [address] [place] [address] Glucose [Mass/Vol] 98 mg/dL Normal 55-199 [facility] Comment on above: Performed By: #### 2 743945, 9968194, 3221034, 12393322 ####[facility] [address] [place] [address] Potassium [Moles/Vol] 4.3 mmol/L Normal 3.5-5.3 [facility] Comment on above: Performed By: #### 2 448662, 4215947, 1603773, 62800876 ####[facility] [address] [place] [address] Protein [Mass/Vol] 7.5 g/dL Normal 6.0-7.8 [facility] Comment on above: Performed By: #### 2 162869, 7474668, 4254532, 91614722 ####[facility] [address] [place] [address] Sodium [Moles/Vol] 137 mmol/L Normal 135-145 [facility] Comment on above: Performed By: #### 2 024825, 5656410, 6169517, 70848818 ####[facility] [address] [place] [address] Urea nitrogen [Mass/Vol] 21 mg/dL Normal 5-21 [facility] Comment on above: Performed By: #### 2 121538, 2199237, 3049776, 75465122 ####[facility] [address] [place] [address] Urea nitrogen/Creatinine [Mass ratio] 21 No Units High 10-20 [facility] Comment on above: Performed By: #### 2 934296, 4849968, 5415575, 86664360 ####[facility] [address] [place] [address] COAGULATIONOrdered By: Catina Miles on 01-09-2024 Fibrin D-dimer FEU (PPP) [Mass/Vol] 404 ng/mL FEU Normal 215 - 500 ng/mL FEU [facility] Auto Coag Comment on above: Interpretive [...] Treatmenton 12-29 Consent for Treatment [id number]#1 .00TIFF Normal [facility] D-Dimeron 01-09-2024 Fibrin D-dimer FEU (PPP) [Mass/Vol] 404 [id number] Normal 215-500 [facility] Comment on above: Result Comment: [...] infections Liver cirrhosis Performed By: #### 2 980862, 9369751, 2047528, 56109053 ####[facility] [address] [place] [address] HEMATOLOGYOrdered By: SYSTEM SYSTEM on 01-09-2024 Basophils/100 [...] 01-09-2024 eGFR 65 mL/min/1.73 m2 Normal >=59 [facility] Comment on above: Order Comment: Order added by Discern Expert. Performed By: #### 2 065904, 2781502, 8532447, 61917779 ####[facility] [address] [place] [address] CT Abdomen/Pelvis w/ Contras ton 11-24-2023 CT [...] Colvin DO Transcribed by: NOHEMY Technologist: VIN Report IMPRESSION: NO ACUTE ABDOMINOPELVIC PROCESS. CHOLELITHIASIS. [...] 11/24/2023 14:25 EST by Vincenzo Colvin DO [facility] Prescriptions/Work Noteson 1 12-14-2022 Prescriptions/Work Notes [id number]# 1.00TIFF Normal [facility] Discharge Instructionson Discharge Instructions [id number]# 1.00TIFF Normal [facility] Monitor Recordon 09-26-2023 Monitor Record [id number]# 1.00TIFF Normal [facility] UA With Cult Reflexon 2022 Bilirubin Ql (U) Negative Normal Negative [facility] Comment on above: Performed By: #### 1 6451012 ####[facility] [address] [place] [address] Clarity (U) CLEAR Normal Clear [facility] Comment on above: Performed By: #### 1 9771502 ####[facility] [address] [place] [address] Color (U) YELLOW Normal Yellow [facility] Comment on above: Performed By: #### 1 7615308 ####[address] [place] [address] Epithelial cells.squamous LM.HPF (Urine sed) [#/Area] 0-2 Normal 0-2 [facility] Comment on above: Performed By: #### 1 8681602 ####[address] [address] Glucose Test strip (U) [Mass/Vol] Negative Normal Negative [facility] Comment on above: Performed By: #### 1 3361314 ####[address] [address] Hemoglobin Ql (U) Negative Normal Negative [facility] Comment on above: Performed By: #### 1 8252965 ####[address] [address] Ketones (U) [Mass/Vol] Negative Normal Negative [facility] Comment on above: Performed By: #### 1 0414751 ####[address] [address] [place].plasma/[place] .RBC (Bld) [Mass ratio] 0-3 Normal 0-3 [facility] Comment on above: Performed By: #### 1 0193916 ####[address] [address] Nitrite Ql (U) Negative Normal Negative [facility] Comment on above: Performed By: #### 1 9863335 ####[address] [address] pH (U) 6.5 [pH] Invalid Interpretation Code 5.0-9.0 [facility] Comment on above: Performed By: #### 1 8992108 ####[address] [address] Protein (U) [Mass/Vol] Negative Normal Negative [facility] Comment on above: Performed By: #### 1 8403968 ####[address] [address] Specific gravity (U) [Rel density] <=1.005 Invalid Interpretation Code 1.005-1.030 [facility] Comment on above: Performed By: #### 1 7368501 ####[facility] [address] [place] [address] Type of Urine collection method Clean Catch Normal [facility] Comment on above: Performed By: #### 1 7748689 ####[facility] [address] [place] [address] Urobilinogen Qn (U) 0.2 {Nayla'U}/dL Normal 0.0-1.0 [facility] Comment on above: Performed By: #### 1 1277283 ####[facility] [address] [place] [address] WBC Auto Ql (U) Negative Normal Negative [facility] Comment on above: Performed By: #### 1 0052058 ####[address] [address] WBC LM.HPF (Urine sed) [#/Area] 0-5 Normal 0-5 [facility] Comment on above: Performed By: #### 1 6355284 ####[address] [address] Auto Diffon 09-25-2023 Basophils/100 WBC (Bld) 0.6 % Normal 0.0-2.0 [facility] Comment on above: Order Comment: Order Added by Discern Expert. Performed By: #### 2 822965, 4392849, 9807048, 2060381, 5923767, 09039832 ####[address] [address] Basophils/Leukocytes Auto (Bld) [Pure # fraction] 0.1 E9/L Normal 0.0-0.2 [facility] Comment on above: Order Comment: Order Added by Discern Expert. Performed By: #### 2 919347, 4759639, 6181669, 9307600, 3483816, 59151068 ####[facility] [address] [place] [address] Eosinophils/100 WBC (Bld) 1.5 % Normal 0.0-8.0 [facility] Comment on above: Order Comment: Order Added by Discern Expert. Performed By: #### 2 891215, 8521790, 7778157, 8233657, 0495894, 46754845 ####[address] [place] [address] Eosinophils/Leukocytes Auto (Bld) [Pure # fraction] 0.1 E9/L Normal 0.0-0.5 [facility] Comment on above: Order Comment: Order Added by Discern Expert. Performed By: #### 2 120410, 1654760, 2402935, 9512362, 8795507, 88802647 ####[address] [place] [address] Lymphocytes/100 WBC (Bld) 15.3 % Normal 14.0-50.0 [facility] Comment on above: Order Comment: Order Added by [place] Expert. Performed By: #### 2 424337, 9821099, 6691966, 4195069, 3422263, 87239351 ####[address] [place] [address] Lymphocytes/Leukocytes Auto (Bld) [Pure # fraction] 1.5 E9/L Normal 1.0-4.0 [facility] Comment on above: Order Comment: Order Added by Quinton Expert. Performed By: #### 2 409131, 1775957, 3286384, 2871710, 7134112, 31140595 ####[address] [place] [address] Monocytes/100 WBC (Bld) 7.4 % Normal 4.0-14.0 [facility] Comment on above: Order Comment: Order Added by Quinton Expert. Performed By: #### 2 422280, 7031595, 1154326, 7659414, 0124102, 01501296 ####[address] [place] [address] Monocytes/Leukocytes Auto (Bld) [Pure # fraction] 0.7 E9/L Normal 0.2-1.0 [facility] Comment on above: Order Comment: Order Added by Quinton Expert. Performed By: #### 2 654508, 6887798, 6481445, 1643406, 6105399, 87491001 ####[facility] [address] [place] [address] Neutrophils/100 WBC (Bld) 75.2 % High 36.0-75.0 [facility] Comment on above: Order Comment: Order Added by Discern Expert. Performed By: #### 2 497836, 3801021, 8560581, 8607090, 6458833, 52290589 ####[facility] [address] [place] [address] Neutrophils/Leukocytes Auto (Bld) [Pure # fraction] 7.1 E9/L Normal 2.0-7.5 [facility] Comment on above: Order Comment: Order Added by Discern Expert. Performed By: #### 2 271752, 4112038, 3049736, 1458421, 5468391, 31952516 ####[facility] [address] [place] [address] [facility] 09-25-2023 Creatinine [Mass/Vol] 0.9 mg/dL Normal 0.5-1.3 [facility] Comment on above: Performed By: #### 2 977729, 6945925, 8134628, 4620533, 9502892, 48449013 ####[facility] [address] [place] [address] Urea nitrogen [Mass/Vol] 20 mg/dL Normal 5-21 [facility] Comment on above: Performed By: #### 2 767558, 3032064, 9319594, 1374429, 1231935, 63101147 ####[facility] [address] [place] [address] Urea nitrogen/Creatinine [Mass ratio] 22 No Units High 10-20 [facility] Comment on above: Performed By: #### 2 857932, 7951584, 3575466, 2651732, 4581453, 56207864 ####[facility] [address] [place] [address] Anion gap [Moles/Vol] 10 mmol/L Normal 6-16 [facility] Comment on above: Performed By: #### 2 194380, 1273537, 0751693, 5063364, 9290644, 96287200 ####[facility] [address] [place] [address] Calcium [Mass/Vol] 10.4 mg/dL Normal 8.9-11.1 [facility] Comment on above: Performed By: #### 2 264122, 3212668, 2739490, 0685740, 6728041, 93275275 ####[facility] [facility] [address] [place] [address] Chloride [Moles/Vol] 101 mmol/L Normal 101-111 [facility] Comment on above: Performed By: #### 2 644023, 4224943, 9562554, 4041578, 9006755, 76980952 ####[facility] [address] [place] [address] CO2 [Moles/Vol] 27 mmol/L Normal 21-31 [place] Comment on above: Performed By: #### 2 880854, 1698862, 3491504, 4431054, 6726251, 29778762 ####[facility] [address] [place] [address] Glucose [Mass/Vol] 155 mg/dL Normal 55-199 [facility] Comment on above: Result Comment: If t his glucose result represents a fasting glucose, interpretation should refer to the following reference range: 55-99 mg/dL Performed By: #### 2 795019, 4326171, 5056815, 6141784, 6143496, 08045259 ####[facility] [address] [place] [address] Potassium [Moles/Vol] 4.0 mmol/L Normal 3.5-5.3 [facility] Comment on above: Performed By: #### 2 734090, 7120370, 3508698, 1474003, 2276540, 20259751 ####[facility] [address] [place] [address] Sodium [Moles/Vol] 134 mmol/L Low 135-145 [facility] Comment on above: Performed By: #### 2 180621, 0358137, 4256778, 0796447, 6716609, 78181652 ####[address] [address] CBC w/ Auto Diffon Erythrocyte distribution width (RBC) [Ratio] 15.3 % High 10.9-14.2 [facility] Comment on above: Performed By: #### 2 028586, 9679723, 3968325, 7335455, 0351995, 83226685 ####[address] [address] Hematocrit (Bld) [Volume fraction] 38.4 % Normal 34.0-46.0 [facility] Comment on above: Performed By: #### 2 237602, 5942268, 1078130, 0506220, 6721322, 81117501 ####[address] [address] Hemoglobin (Bld) [Mass/Vol] 13.0 g/dL Normal 12.0-16.0 [facility] Comment on above: Performed By: #### 2 893204, 6224807, 0753076, 7117838, 3878007, 75915985 ####[address] [address] MCH (RBC) [Entitic mass] 29.4 pg Normal 27.0-34.0 [facility] Comment on above: Performed By: #### 2 366019, 4044431, 8475238, 0385682, 3890445, 57428837 ####[address] [address] MCHC (RBC) [Mass/Vol] 33.9 g/dL Normal 31.4-36.0 [facility] Comment on above: Performed By: #### 2 716863, 1314976, 9509784, 1120632, 7601637, 17954047 ####[address] [place] [address] MCV (RBC) [Entitic vol] 86.6 fL Normal 80.0-100.0 [facility] Comment on above: Performed By: #### 2 533341, 0774299, 6733442, 8364550, 8968306, 21113041 ####[address] [address] Platelet mean volume (Bld) [Entitic vol] 9.5 fL Normal 6.4-10.8 [facility] Comment on above: Performed By: #### 2 677484, 1419644, 7994400, 3462153, 7356903, 27363722 ####[address] [address] Platelets (Bld) [#/Vol] 207.0 E9/L Normal 150.0-500.0 [facility] Comment on above: Performed By: #### 2 849225, 7432899, 1669205, 5233913, 0988978, 68185654 ####[address] [address] RBC (Bld) [#/Vol] 4.4 E12/L Normal 4.3-5.9 [facility] Comment on above: Performed By: #### 2 047446, 3439885, 4232157, 1081654, 6398456, 17788773 ####[address] [place] [address] WBC corrected for nucl RBC Auto (Bld) [#/Vol] 9.5 E9/L Normal 4.0-11.0 [place] Comment on above: Performed By: #### 2 536930, 8184190, 0789425, 0638439, 3563429, 32112709 ####[address] [place] [address] CHEMISTRYOrdered By: SYSTEM SYSTEM on 09-25-2023 Albumin [...] 74 mL/min/1.73 m2 Normal >=59mL/min/1 .73 m2 [facility] Chem S Comment on above: Interpretive [...] 20 mg/dL Normal 5 - 21 mg/dL FT Remisol Urea nitrogen/Creatinine [Mass ratio] 22 mg/mg High 10 - 20 FT Remisol Consent for Treatmenton 09-01 Consent for Treatment [id number]#1 .00TIFF Normal [facility] ED Clinical Summaryon 2022 ED Clinical Summary [place] [id number] ED Clinical Summary Person Information Name: ALIYA MOORE Hil[facility] Age: 57 Years : 1965 Sex: Female Language: Nauruan PCP: BREA JJ CNP Marital Status: Visit [...] 09/25/2023 21:57:44 09/25/2023 21:57:44 09/25/2023 21:57:44 ADDRESS: [address] [place] [address] [address] [facility] [id number] PHYS DOC NOTES: MEDICAL INFORMATION: Prescriptions Given: [facility], [address], [place] [id number], [phone] dicyclomine (Bentyl 10 mg Cap) 1 Capsules [...] day. fluticasone nasal (fluticasone Nasal 0.05 mg/inh [place]) 2 Sprays Nasal Inhalation every day. each [...] Mouth every day. potassium chloride (Potassium Chloride (Ols-Tcam-Smc 10) 10 mEq oral tablet, extended release) pramipexole (pramipexole 0.5 mg oral tablet) 1 Tablets By Mouth 3 times a day. theophylline (theophylline 300 mg ER Tab) 1 Tablets By Mouth every 12 hours. trazodone (traZODONE 50 mg Tab) 1 Tablets By Mouth once a day (at bedtime). PATIENT EDUCATION INFORMATION: Instructions: Cholelithiasis Follow up: With: Address: When: [facility] [address] [place] [address] 3, 2nd Floor, [address] [place] [phone] Business (1) In 3 days 09/28/2023 With: Address: When: BREA JJ [address] [place], [place] [phone] Business (1) In 3 days DIAGNOSIS: AP (abdominal pain); Cholelithiasis; N&V (nausea and vomiting) Normal [facility] ED Note-Physicianon 09-25-20 ED Note-Physician Basic Information [...] and Complexity of Problems Differential Diagnosis: [] [facility] Data External documents reviewed: N/A [...] day(s), # 28 cap(s), Refills(s) 0, Pharmacy: [facility], 175, cm, 09/25/23 18:25:00 EST, Height/Length [...] q8hr, # 12 tab(s), Refills(s) 0, Pharmacy: [facility]5, 175, cm, 09/25/23 18:25:00 EST, Height/Length [...] Clinic In 3 days 09/28/2023 EST [address] [facility] 3, 2nd Floor, [address] [place] [phone] Business (1) Additional Instructions: BREA JJ In 3 days [address] [place] [address] [phone] Business (1) Additional Instructions: Patient Education Cholelithiasis Problem List/Past Medical History Ongoing Smoker Historical No qualifying data Procedure/Surgical History delivery (05/05/1987), delivery (06/20/1984), Cyst, Knee. Medications Inpatient morphine 4 mg/mL Inj, 4 mg= 1 mL, IV Push, Once Zofran 4 mg/2 mL Injection, 4 mg= 2 mL, IV Push, Once Home albuterol- (more content not included)... Normal [facility] Comment on above: Result Comment: [...] to break (more content not included)... Normal [facility] ED Patient Summaryon 023 ED Patient Summary [place] [id number] Patient Discharge Instructions Person Information Name: ALIYA MOORE Age: 57 Years Arrival Date: 09/25/2023 18:09:44 Discharge Diagnosis: AP (abdominal pain); Cholelithiasis; N&V (nausea and vomiting) Primary Care Physician: BREA JJ CNP Provider Information Primary Provider: Moses Fischer DO Advanced Government Affairs Director:None The exam and treatment you received in the Emergency Department were for an urgent problem and are not intended as complete care. It is important that you follow up with a doctor, nurse practitioner, or physician?s financial planning assistant for ongoing care. If your symptoms [...] With: Address: [facility] [address] [facility], [address] [place] [phone] Business (1) In 3 days 09/28/2023 With: Address: When: BREA JJ [address] [place], [place] [phone] Business (1) In 3 days In the event that this physician does not participate in your insurance network, please consult with your insurance company to find a nearby participating provider. Patient Education Materials: Cholelithiasis A MESSAGE TO ALL PATIENTS REGARDING OPIOIDS PRESCRIPTION OPIOIDS: WHAT YOU NEED TO KNOW Prescription opioids can be used to help relieve lbwaumkk-ey-ayotja pain and are often prescribed following a [...] and overdos (more content not included)... Normal [facility] HEMATOLOGYOrdered By: SYSTEM SYSTEM on 09-25-2023 Basophils/100 WBC (Bld) 0.6 % Normal 0.0 - 2.0 % [facility] HemeAutoSS Basophils/Leukocytes Auto (Bld) [Pure # fraction] 0.1 E9/L Normal 0.0 - 0.2 E9/L [facility] HemeAutoSS Eosinophils/100 WBC (Bld) 1.5 % Normal 0.0 - 8.0 % [facility] HemeAutoSS Eosinophils/Leukocytes Auto (Bld) [Pure # fraction] 0.1 E9/L Normal 0.0 - 0.5 E9/L [facility] HemeAutoSS Lymphocytes/100 WBC (Bld) 15.3 % Normal 14.0 - 50.0 % FT HemeAutoSS Lymphocytes/Leukocytes Auto (Bld) [Pure # fraction] [...] 09-25-2023 Albumin [Mass/Vol] 3.9 g/dL Normal 3.3-5.0 [facility] Comment on above: Performed By: #### 2 070634, 9474100, 9839711, 4630114, 2370128, 46713739 ####[facility] [address] [place] [address] Albumin/Globulin (S) [Mass conc ratio] 1.0 Low 1.1-2.2 [facility] Comment on above: Performed By: #### 2 277471, 5650406, 8459653, 6527005, 5950604, 31754717 ####[address] [address] ALP [Catalytic activity/Vol] 66 Int._Unit/L Normal 21-98 [facility] Comment on above: Performed By: #### 2 374183, 5158531, 5003514, 4335010, 7044915, 30442266 ####[address] [address] ALT No additional P-5'-P [Catalytic activity/Vol] 25 Int._Unit/L Normal 6-46 [facility] Comment on above: Performed By: #### 2 349957, 5297648, 3659831, 5223515, 5783884, 03711712 ####[address] [address] AST [Catalytic activity/Vol] 25 Int._Unit/L Normal 5-43 [facility] Comment on above: Performed By: #### 2 469538, 9624755, 0972287, 1625650, 7203487, 35579438 ####[facility] [address] [place] [address] Bilirubin [Mass/Vol] 0.2 mg/dL Normal 0.0-1.1 [facility] Comment on above: Performed By: #### 2 617321, 4027275, 6479648, 6895252, 2932387, 88851457 ####[facility] [address] [place] [address] Bilirubin.direct [Mass/Vol] 0.1 mg/dL Normal 0.1-0.4 [facility] Comment on above: Performed By: #### 2 765810, 9143563, 4638185, 2449676, 8571334, 31676457 ####[facility] [address] [place] [address] Bilirubin.indirect [Mass or moles/Vol] 0.1 mg/dL Normal 0.1-0.9 [facility] Comment on above: Performed By: #### 2 443410, 7363723, 5328628, 2467270, 9716525, 20312136 ####[address] [place] [address] Globulin (S) [Mass/Vol] 4.0 g/dL Normal 1.4-4.0 [facility] Comment on above: Performed By: #### 2 811807, 2262874, 9083609, 8394533, 1993031, 16956988 ####[address] [address] Protein [Mass/Vol] 7.9 g/dL High 6.0-7.8 [facility] Comment on above: Performed By: #### 2 015919, 2855880, 9399743, 0275414, 8257173, 73099747 ####[address] [place] [address] Lipase Levelon 09-25-2023 Lipase [Catalytic activity/Vol] 39 U/L Normal 13-58 [facility] Comment on above: Performed By: #### 2 002107, 3338428, 4228192, 9175645, 4625532, 67314240 ####[address] [place] [address] RAD - Preliminary Cat Scan R eporton 09-25-2023 RAD - Preliminary Cat Scan Report [id number]# 1.00TIFF Normal [facility] URINALYSISOrdered By: Tanya Nathan on [...] PM) Normal Negative [facility] UA Auto SS [place].plasma/[place] .RBC (Bld) [Mass ratio] 0-3 /HPF Normal [...] [facility] UA Auto SS Urobilinogen Qn (U) 0.1056386 {Nayla'U}/dL Normal 0.0 - 1.0 EU/dL [facility] UA Auto SS WBC Auto Ql (U) Negative (09/25/23 9:53 PM) Normal Negative [facility] UA Auto SS WBC LM.HPF (Urine sed) [#/Area] 0-5 /HPF Normal 0-5/HPF [facility] UA Auto SS eGFRon 09-25-2023 GFR/1.73 sq M.predicted among non-blacks MDRD (S/P/Bld) [Vol rate/Area] 74 mL/min/1.73 m2 Normal >=59 [facility] Comment on above: Order Comment: Order added by Discern Expert. Result Comment: [employer] nita kidney disease could be indicated at eGFR's of less than 60 mL/min/1.73m2. Kidney failure is indicated at less than 15 mL/min/1.73m2. Performed By: #### 2 193397, 5342454, 5207952, 0108887, 1847234, 95497654 ####[facility] [address] [place] [address] 36on 09-08-2023 36 Approving, but needs appt for additional refills. Normal [facility] Auto Diffon 09-08-2023 Basophils/100 WBC (Bld) 0.2 % Normal 0.0-2.0 [facility] Comment on above: Order Comment: Order Added by Discern Expert. Performed By: #### 2 455933, 0992959, 2258303, 25792422, 0693376, 47762321, 21298176, 04313749 ####[facility] [address] [place] [address] Basophils/Leukocytes Auto (Bld) [Pure # fraction] 0.0 E9/L Normal 0.0-0.2 [facility] Comment on above: Order Comment: Order Added by Discern Expert. Performed By: #### 2 343504, 3718950, 4262688, 13552288, 5238382, 85061454, 83956556, 37408770 ####[facility] [address] [place] [address] Eosinophils/100 WBC (Bld) 0.8 % Normal 0.0-8.0 [facility] Comment on above: Order Comment: Order Added by Discern Expert. Performed By: #### 2 300541, 4595458, 6052479, 02319223, 8914135, 00933102, 33011493, 89641672 ####[facility] [address] [place] [address] Eosinophils/Leukocytes Auto (Bld) [Pure # fraction] 0.1 E9/L Normal 0.0-0.5 [facility] Comment on above: Order Comment: Order Added by [place] Expert. Performed By: #### 2 765474, 1622622, 2682019, 97138895, 7281677, 76314762, 60716477, 47283555 ####[facility] [address] [place] [address] Lymphocytes/100 WBC (Bld) 11.3 % Low 14.0-50.0 [facility] Comment on above: Order Comment: Order Added by Discern Expert. Performed By: #### 2 073129, 3287848, 2630045, 00872036, 7090835, 83032597, 51526822, 23129110 ####[facility] [address] [place] [address] Lymphocytes/Leukocytes Auto (Bld) [Pure # fraction] 1.0 E9/L Normal 1.0-4.0 [facility] Comment on above: Order Comment: Order Added by [place]inton Expert. Performed By: #### 2 806967, 3628690, 6112225, 91003833, 6509559, 57622654, 56118009, 55259336 ####[facility] [address] [place] [address] Monocytes/100 WBC (Bld) 6.9 % Normal 4.0-14.0 [facility] Comment on above: Order Comment: Order Added by [place]inton Expert. Performed By: #### 2 531549, 6527404, 5555036, 96120442, 6298009, 31826462, 60341623, 00823265 ####[facility] [address] [place] [address] Monocytes/Leukocytes Auto (Bld) [Pure # fraction] 0.6 E9/L Normal 0.2-1.0 [facility] Comment on above: Order Comment: Order Added by [employer]inton Expert. Performed By: #### 2 974778, 5306943, 4521722, 10214715, 8146183, 77560416, 58961375, 57754324 ####[address] [place] [address] Neutrophils/100 WBC (Bld) 80.8 % High 36.0-75.0 [facility] Comment on above: Order Comment: Order Added by Discern Expert. Performed By: #### 2 467240, 0536975, 4134035, 87977562, 6671980, 14177878, 18843776, 76702814 ####[facility] [address] [place] [address] Neutrophils/Leukocytes Auto (Bld) [Pure # fraction] 7.1 E9/L Normal 2.0-7.5 [facility] Comment on above: Order Comment: Order Added by Discern Expert. Performed By: #### 2 828066, 5418663, 5920675, 35014296, 6351069, 94816999, 64638880, 96454338 ####[facility] [address] [place] [address] BMPon 09-08-2023 Creatinine [Mass/Vol] 1.2 mg/dL Normal 0.5-1.3 [facility] Comment on above: Performed By: #### 2 008318, 8407011, 0510817, 10237614, 5227930, 75214447, 09787862, 92129003 ####[facility] [address] [place] [address] Urea nitrogen [Mass/Vol] 26 mg/dL High 5-21 [facility] Comment on above: Performed By: #### 2 655546, 6583903, 0723027, 46267183, 1162874, 24296897, 32245802, 27106245 ####[facility] [address] [place] [address] Urea nitrogen/Creatinine [Mass ratio] 22 No Units High 10-20 [facility] Comment on above: Performed By: #### 2 665661, 0230592, 2181152, 30297844, 2953380, 04892837, 26229382, 84987243 ####[facility] [address] [place] [address] Anion gap [Moles/Vol] 13 mmol/L Normal 6-16 [facility] Comment on above: Performed By: #### 2 212085, 1869282, 9822647, 98913477, 4210070, 23639100, 30762378, 93281844 ####[facility] [address] [place] [address] Calcium [Mass/Vol] 9.9 mg/dL Normal 8.9-11.1 [facility] Comment on above: Performed By: #### 2 913489, 8285195, 6757856, 44491291, 2296226, 88422181, 89359971, 97691731 ####[facility] [address] [place] [address] Chloride [Moles/Vol] 99 mmol/L Low 101-111 [facility] Comment on above: Performed By: #### 2 494931, 3744441, 4076710, 43772330, 6363614, 56440297, 12331667, 83184054 ####[facility] [address] [place] [address] CO2 [Moles/Vol] 28 mmol/L Normal 21-31 [place] Comment on above: Performed By: #### 2 701802, 7423316, 6449222, 65651814, 0895637, 85614948, 06897567, 38594360 ####[facility] [address] [place] [address] Glucose [Mass/Vol] 126 mg/dL Normal 55-199 [facility] Comment on above: Result Comment: If t his glucose result represents a fasting glucose, interpretation should refer to the following reference range: 55-99 mg/dL Performed By: #### 2 496012, 2914909, 2178237, 57932558, 1467075, 81594878, 95489997, 29950523 ####[facility] [address] [place] [address] Potassium [Moles/Vol] 4.0 mmol/L Normal 3.5-5.3 [facility] Comment on above: Performed By: #### 2 269376, 9931328, 0579749, 30916663, 2352481, 07503513, 28265300, 45770353 ####[facility] [address] [place] [address] Sodium [Moles/Vol] 136 mmol/L Normal 135-145 [facility] Comment on above: Performed By: #### 2 287288, 5640775, 3222363, 72666653, 8580277, 18009400, 22729411, 44351703 ####[facility] [address] [place] [address] BNPon 09-08-2023 Int Ctr BNP Pass Normal [facility] Comment on above: Performed By: #### 2 476674, 9790483, 9619759, 73590571, 4674350, 29581492, 14552094, 27739643 ####[address] [place] [address] Natriuretic peptide B (Bld) [Mass/Vol] 21 pg/mL Normal 5-80 [facility] Comment on above: Performed By: #### 2 144588, 1968879, 5022857, 14208150, 4957349, 44156915, 80527360, 64668023 ####[address] [place] [address] CBC w/ Auto Diffon 3 Erythrocyte distribution width (RBC) [Ratio] 15.1 % High 10.9-14.2 [facility] Comment on above: Performed By: #### 2 184526, 2743873, 8873297, 60745929, 4489511, 02435712, 57788385, 36632306 ####[address] [place] [address] Hematocrit (Bld) [Volume fraction] 38.8 % Normal 34.0-46.0 [facility] Comment on above: Performed By: #### 2 515351, 4119388, 3784849, 46644069, 0852428, 48330191, 97720005, 22523296 ####[address] [place] [address] Hemoglobin (Bld) [Mass/Vol] 13.0 g/dL Normal 12.0-16.0 [facility] Comment on above: Performed By: #### 2 302615, 1165792, 9842373, 68564675, 2349313, 14057367, 89242473, 24529272 ####[address] [address] MCH (RBC) [Entitic mass] 29.4 pg Normal 27.0-34.0 [facility] Comment on above: Performed By: #### 2 105318, 5084123, 0067328, 23609155, 1168824, 05614591, 14960294, 25435431 ####[address] [address] MCHC (RBC) [Mass/Vol] 33.5 g/dL Normal 31.4-36.0 [facility] Comment on above: Performed By: #### 2 389226, 0825692, 3419549, 41858016, 6747013, 62994556, 96051585, 82036950 ####[address] [address] MCV (RBC) [Entitic vol] 87.6 fL Normal 80.0-100.0 [facility] Comment on above: Performed By: #### 2 963992, 3218028, 2059082, 37636864, 3571541, 84707155, 09221075, 31054132 ####[address] [address] Platelet mean volume (Bld) [Entitic vol] 10.7 fL Normal 6.4-10.8 [facility] Comment on above: Performed By: #### 2 701250, 3333960, 8140739, 56942419, 3676992, 97743134, 24564353, 44920735 ####[facility] [address] [place] [address] Platelets (Bld) [#/Vol] 195.0 E9/L Normal 150.0-500.0 [facility] Comment on above: Performed By: #### 2 267577, 2006936, 0479765, 16230818, 7870033, 01932379, 82979043, 15375058 ####[facility] [address] [place] [address] RBC (Bld) [#/Vol] 4.4 E12/L Normal 4.3-5.9 [facility] Comment on above: Performed By: #### 2 999136, 0155251, 7460413, 05973317, 8689052, 98923996, 39017734, 78154680 ####[facility] [address] [place] [address] WBC corrected for nucl RBC Auto (Bld) [#/Vol] 8.8 E9/L Normal 4.0-11.0 [place] Comment on above: Performed By: #### 2 814493, 8448617, 6683451, 20355011, 9644879, 63133228, 70632421, 14759559 ####[facility] [address] [place] [address] CHEMISTRYOrdered By: SYSTEM SYSTEM on 09-08-2023 Troponin [...] Sensitivity Troponin I Instructions For Use, Claude [place], May 2018) Albumin [Mass/Vol] 3.8 g/dL Normal [...] 52 mL/min/1.73 m2 Low >=59mL/min/1 .73 m2 [facility] Chem S Comment on above: Interpretive [...] 4.70 pg/mL Low 10.10 - 27.10 pg/mL [facility] Remisol Comment on above: Interpretive Data: T he 95% CI (Confidence Interval) PPV (Positive Predictive Value) for myocardial infarction in females is 38 pg/mL, in males 51 pg/mL. The results should be used in conjunction with clinical conditions of myocardial infarction. (Access High Sensitivity Troponin I Instructions For Use, Claude [employer], May 2018) Urea nitrogen [Mass/Vol] 26 mg/dL High 5 - 21 mg/dL [facility] Remisol Urea nitrogen/Creatinine [Mass ratio] 22 mg/mg High 10 - 20 [facility] Remisol CHEMISTRYOrdered By: Yanet Davis on 09-08-2023 Natriuretic peptide B (Bld) [Mass/Vol] 21 pg/mL Normal 5 - 80 pg/mL [facility] HemeManSS COAGULATIONOrdered By: Dov Patel on 09-08-2023 aPTT Coag (PPP) [Time] 37.3 s High 25.1 - 36.5 second(s) [facility] Auto Coag Comment on above: Interpretive [...] the same coagulation reagent and instrumentation as [facility]. Currently there are no coagulation studies available worldwide for children to 14 days, and no normal ranges. Heparin therapeutic range (represented by Anti-Factor Xa activity of 0.2 - 0.4 U/mL) corresponds to PTT of 56.6 - 109.0 sec. INR Coag (PPP) [Relative time] 1.2 {INR} Invalid Interpretation Code [facility] Auto Coag Comment on above: Interpretive Data: I NR results are specifically intended to assess patients stabilized on long-term Anticoagulation therapy suggested INR s Less Intensive Anticoagulation 2.0 3.0 Conventional Range 3.0 4.5 PT Coag (PPP) [Time] 13.7 s High 9.4 - 1 2.5 second(s) [facility] Auto Coag Comment on above: Interpretive [...] the same coagulation reagent and instrumentation as [facility]. Currently there are no coagulation studies [...] 370 Contrast amount in ml's: 68 Normal [facility] Consent for Treatmenton Consent for Treatment [id number]# 1.00TIFF Normal [facility] Discharge Instructionson Discharge Instructions [id number]# 1.00TIFF Normal [facility] ED Clinical Summaryon 2022 ED Clinical Summary [place] [id number] ED Clinical Summary Person Information Name: ALIYA MOORE Connie [place] Age: 57 Years : 1965 Sex: Female Language: Nauruan PCP: BREA JJ CNP Marital Status: Visit [...] 09/08/2023 20:29:11 09/08/2023 20:29:11 09/08/2023 20:29:11 ADDRESS: [address] [place] [address] [address] [facility] [facility] [id number] PHYS DOC NOTES: MEDICAL INFORMATION: Prescriptions Given: [...] day. fluticasone nasal (fluticasone Nasal 0.05 mg/inh [place]) 2 Sprays Nasal Inhalation every day. each [...] Mouth every day. potassium chloride (Potassium Chloride (Kfu-Twbl-Ydg 10) 10 mEq oral tablet, extended release) [...] With: Address: When: BREA JJ [address] [place], [place] [id number] [phone] Business (1) In 3 days DIAGNOSIS: Acute chest pain Normal [facility] ED Note-Physicianon 09-08-20 ED Note-Physician [...] precautions. Patient was discharged stable condition. Normal [facility] Comment on above: Result Comment: [...] History O (more content not included)... Normal [facility] Comment on above: Result Comment: [...] these instructions at home: Medicines ? Take zpof-nbp-mtvbcft and prescription medicines only as told by [...] by your (more content not included)... Normal [facility] ED Patient Summaryon 023 ED Patient Summary [place] [id number] Patient Discharge Instructions Person Information Name: ALIYA MOORE Age: 57 Years Arrival Date: 09/08/2023 16:32:21 Discharge Diagnosis: Acute chest pain Primary Care Physician: BREA JJ CNP Provider Information Primary Provider: Ramses Hiar DO Advanced Government Affairs Director:None The exam and treatment you received in the Emergency Department were for an urgent problem and are not intended as complete care. It is important that you follow up with a doctor, nurse practitioner, or physician?s financial planning assistant for ongoing care. If your symptoms [...] With: Address: When: BREA JJ [address] [place], [place] [phone] Business (1) In 3 days In the event that this physician does not participate in your insurance network, please consult with your insurance company to find a nearby participating provider. Patient Education Materials: Nonspecific Chest Pain, Adult A MESSAGE TO ALL PATIENTS REGARDING OPIOIDS PRESCRIPTION OPIOIDS: WHAT YOU NEED TO KNOW Prescription opioids can be used to help relieve znbbntrp-tq-ruzgjj pain and are often prescribed following a [...] be struggling with addiction, tell your health daycare director and ask for guidance or call SAMHSA?S National Helpline at 0-437-225-HELP. v Source: [place] (more content not included)... Normal [facility] EMS Documentationon 09-08-20 EMS Documentation Please click on link to see report Normal [facility] Comment on above: Result Comment: [...] Bilirubin.indirect [Mass or moles/Vol] UTC Abnormal 0.1-0.9 [facility] Comment on above: Result Comment: Resu lt verified by Discern Rule. Performed result UTC (Unable to Calculate) was sent as an Alpha code due the inability to calculate a valid numeric value. Performed By: #### 2 599755, 7193083, 7851553, 01743587, 9485205, 60481799, 35324664, 99661125 ####[facility] [address] [place] [address] Albumin [Mass/Vol] 3.8 g/dL Normal 3.3-5.0 [facility] Comment on above: Performed By: #### 2 612484, 4423115, 8420520, 32039974, 8336292, 50322833, 61963909, 11180902 ####[facility] [address] [place] [address] Albumin/Globulin (S) [Mass conc ratio] 0.8 Low 1.1-2.2 [facility] Comment on above: Performed By: #### 2 101686, 8887206, 9965293, 86370232, 8291888, 53838864, 81748141, 06275223 ####[address] [place] [address] ALP [Catalytic activity/Vol] 68 Int._Unit/L Normal 21-98 [facility] Comment on above: Performed By: #### 2 084015, 5699896, 0473887, 90045679, 4529482, 81548234, 05467655, 83538919 ####[address] [address] ALT No additional P-5'-P [Catalytic activity/Vol] 18 Int._Unit/L Normal 6-46 [facility] Comment on above: Performed By: #### 2 590134, 3855521, 8526191, 29922197, 3186839, 72719084, 44272877, 18976515 ####[address] [address] AST [Catalytic activity/Vol] 20 Int._Unit/L Normal 5-43 [facility] Comment on above: Performed By: #### 2 918719, 9027691, 3144516, 42398313, 3470975, 87870902, 47973078, 43032726 ####[address] [address] Bilirubin [Mass/Vol] 0.4 mg/dL Normal 0.0-1.1 [facility] Comment on above: Performed By: #### 2 656499, 8826245, 8982278, 30970133, 9976227, 64461031, 77056042, 91585393 ####[address] [address] Globulin (S) [Mass/Vol] 4.5 g/dL High 1.4-4.0 [facility] Comment on above: Performed By: #### 2 635606, 2469654, 6260103, 24124477, 4800034, 48909993, 85965745, 88336106 ####[facility] [address] [place] [address] Protein [Mass/Vol] 8.3 g/dL High 6.0-7.8 [facility] Comment on above: Performed By: #### 2 754423, 9388733, 9899996, 89678335, 5911531, 80773858, 45296969, 51506152 ####[facility] [address] [place] [address] Bilirubin.direct [Mass/Vol] mg/dL Normal 0.1-0.4 [facility] Comment on above: Performed By: #### 2 094007, 3799194, 5931953, 08923702, 9146503, 25943006, 07189240, 08013344 ####[facility] [address] [place] [address] Monitor Recordon 09-08-2023 Monitor Record [id number]# 1.00TIFF Normal [facility] Monitor Record [id number]# 1.00TIFF Normal [facility] PT & PTTon 09-08-2023 aPTT Coag (PPP) [Time] 37.3 second(s) High 25.1-36.5 [facility] Comment on above: Result Comment: [...] the same coagulation reagent and instrumentation as [facility]. Currently there are no coagulation studies available worldwide for children to 14 days, and no normal ranges. Heparin therapeutic range (represented by Anti-Factor Xa activity of 0.2 - 0.4 U/mL) corresponds to PTT of 56.6 - 109.0 sec. Performed By: #### 2 146742, 2621129, 2664941, 39131862, 8896506, 69919441, 36243895, 39727642 ####[facility] [address] [place] [address] INR Coag (PPP) [Relative time] 1.2 {INR} Invalid Interpretation Code [facility] Comment on above: Result Comment: INR results are specifically intended to assess patients stabilized on long-term Anticoagulation therapy suggested INR?s ?Less Intensive Anticoagulation? 2.0 ? 3.0 Conventional Range 3.0 ? 4.5 Performed By: #### 2 126444, 6125269, 9037586, 01156136, 8354387, 90055853, 10336290, 89531988 ####[facility] [address] [place] [address] PT Coag (PPP) [Time] 13.7 second(s) High 9.4-12.5 [facility] Comment on above: Result Comment: [...] the same coagulation reagent and instrumentation as [facility]. Currently there are no coagulation studies available worldwide for children to 14 days, and no normal ranges. Performed By: #### 2 317440, 3387815, 5019203, 07079281, 2838683, 78809324, 34572807, 52712595 ####[facility] [address] [place] [address] Troponin 0 Hr.on 09-08-2023 Troponin I.cardiac [Mass/Vol] 4.70 pg/mL Low 10.10-27.10 [facility] Comment on above: Result Comment: The 95% CI (Confidence Interval) PPV (Positive Predictive Value) for myocardial infarction in females is 38 pg/mL, in males 51 pg/mL. The results should be used in conjunction with clinical conditions of myocardial infarction. (Access High Sensitivity Troponin I Instructions For Use, [employer], May 2018) Performed By: #### 2 452243, 8788232, 6661024, 09985868, 8882929, 77893461, 61618364, 35875001 ####[facility] [address] [place] [address] Troponin 3 Hr.on 09-08-2023 Troponin I.cardiac [Mass/Vol] 4.20 pg/mL Low 10.10-27.10 [facility] Comment on above: Result Comment: The 95% CI (Confidence Interval) PPV (Positive Predictive Value) for myocardial infarction in females is 38 pg/mL, in males 51 pg/mL. The results should be used in conjunction with clinical conditions of myocardial infarction. (Access High Sensitivity Troponin I Instructions For Use, [employer], May 2018) Performed By: #### 1 1950864 ####[address] [place] [address] eGFRon 09-08-2023 GFR/1.73 sq M.predicted among non-blacks MDRD (S/P/Bld) [Vol rate/Area] 52 mL/min/1.73 m2 Low >=59 [facility] Comment on above: Order Comment: Order added by Discern Expert. Result Comment: [employer] n[employer] kidney disease could be indicated at eGFR's of less than 60 mL/min/1.73m2. Kidney failure is indicated at less than 15 mL/min/1.73m2. Performed By: #### 2 560965, 5644311, 1973872, 36300734, 2416240, 41445436, 79071871, 18445595 ####[facility] [address] [place] [address] Office Visiton 07-20-2023 Follow-up visit [id number] Aliya Moore 1965 F Date Provider Department Center 07/20/2023 Chey-MARLENE SOTO [facility] Family History Problem Relation Age of Onset Coronary artery disease Other Pulmonary embolism Other Deep vein thrombosis Other Family Status - Relation Status Age at Other Level of Service:25320 NC OFFICE/OUTPATIENT ESTABLISHED LOW MDM 20-29 MIN Normal [facility] Consent for Treatmenton 07-01 Consent for Treatment [id number]#1 .00CD:127 Normal [facility] Oncology Noteon 07-19-2023 Oncology Note Oncology Cigarette Stamper Office Visit/Treatment Note Current Patient Status/Reason: Pt [...] 6 months. Pt started in May. Normal [facility] Comment on above: Result Comment: [...] was referred to our hematology office at [facility] for Thrombophilia work up and decision about duration of anticoagulation for the acute PE diagnosed on . She is a 57-year-old female cigarette smoker with history of hypertension, nzp-rcdmkxn-lxpplqgsh diabetes mellitus, obesity, chronic hypoxic respiratory failure on 3 L home oxygen, and depression who presented on 06/16/23 to [facility] ER with complaints of right-sided chest [...] puff(s), Inhalation, BID fluticasone Nasal 0.05 mg/inh [place] 2 spray(s), Nasal, Daily furosemide 20 mg Tab 20 mg = 1 tab(s), Oral, Daily gabapentin 300 mg Cap 300 mg = 1 cap(s), Oral, BID hydrochlorothiazide-l isinopril 25 mg-20 mg Tab 1 tab(s), Oral, Daily lamotrigine 25 mg Tab 25 mg = 1 tab(s), Oral, BID pioglitazone 15 mg Tab 15 mg = 1 tab(s), Oral, Daily Potassium Chloride (Dlj-Rfzk-Uab 10) 10 mEq oral tablet, extended release [...] list: All Problems Smoker / SNOMED CT 748293942 / Confirmed Added secondary to documentation in Social History. Histories Past Medical History: No active or resolved past medical history items have been selected or recorded. Family History: History is unknown. Procedure history: delivery (SNOMED CT 4649866827) on 05/05/1987 at 21 Years. delivery (SNOMED CT 1293657902) on 06/20/1984 at 18 Years. Cyst (SNOMED CT 6293546647). Comments: 06/28/2023 11:00 EDT - SallyPrisca sánchez A Removal of cyst of right foot. Knee (SNOMED CT 132623893). Comments: 06/28/2023 11:01 EDT - Prisca Montoya A surgery Social History Social & Psychosocial Habits Alcohol Comment: den - 06/16/2023 16:10 - Kezia Catalan Substance Abuse Comment: - 06/16/2023 16:10 - Aundrea (more content not included)... Normal [facility] .VIPER VENOM MIXING STUDYon 07-08-2023 dRVVT w 1:1 PNP Coag (PPP) [Time] 47.4 second(s) High 0.0-40.4 [facility] Comment on above: Result Comment: Perf ormed at: [facility] [address] [id number] MD Tony Laird Performed By: #### 1 86925343, 27632528, 7838916, 22796009, 64794099, 60474077, 79015766, 4234277, 8936935, 9176964, 34237657, 8550529 ####[facility] [address] [place] [address] MARY KATE ABS Ig G,M,Aon 3 Cardiolipin IgA IA Qn (S) <9 Invalid Interpretation Code 0-11 [facility] Comment on above: Result Comment: Nega tive: <12 Indeterminate: 12 - 20 Low-Med Positive: >20 - 80 High Positive: >80 Performed at: [facility] [address] [place] [address] [id number] PhD Matthew Funez Performed By: #### 1 52118714, 90952593, 9734800, 72426528, 68221439, 96940447, 29434748, 8105598, 2052683, 9757286, 64047336, 8445673 ####[facility] [address] [place] [address] Cardiolipin IgG IA Qn (S) <9 Invalid Interpretation Code 0-14 [facility] Comment on above: Result Comment: Nega tive: <15 Indeterminate: 15 - 20 Low-Med Positive: >20 - 80 High Positive: >80 Performed By: #### 1 97280212, 76562534, 0552669, 36889759, 56199920, 98777963, 50607484, 8434039, 5797772, 2891597, 18184733, 9691339 ####[facility] [address] [place] [address] Cardiolipin IgM IA Qn (S) <9 Invalid Interpretation Code 0-12 [facility] Comment on above: Result Comment: Nega tive: <13 Indeterminate: 13 - 20 Low-Med Positive: >20 - 80 High Positive: >80 Performed By: #### 1 93809533, 40325736, 0246376, 87858884, 97840186, 34598492, 93307228, 9125815, 4822773, 0863406, 41942684, 5941683 ####[facility] [address] [place] [address] Beta-2 Glycoprot.i Aon 07-08 Beta 2 glycoprotein 1 IgA Qn (S) 19 Invalid Interpretation Code 0-25 [facility] Comment on above: Result Comment: The reference interval reflects a 3SD or 99th percentile interval, which is thought to represent a potentially clinically significant result in accordance with the International Consensus Statement on the classification criteria for definitive antiphospholipid syndrome (APS). J Thromb Haem 2006;4:295-306. Performed By: #### 1 72279778, 89794044, 5300108, 21744966, 67622605, 72161564, 86229252, 6327867, 1209175, 0931987, 47912363, 7268305 ####[facility] [address] [place] [address] Beta 2 glycoprotein 1 IgG Qn (S) <9 Invalid Interpretation Code 0-20 [facility] Comment on above: Result Comment: The reference interval reflects a 3SD or 99th percentile interval, which is thought to represent a potentially clinically significant result in accordance with the International Consensus Statement on the classification criteria for definitive antiphospholipid syndrome (APS). J Thromb Haem 2006;4:295-306. Performed By: #### 1 48018291, 27704674, 6192540, 88970717, 16152919, 21029921, 85761646, 7751137, 9635464, 9481799, 78534146, 1457087 ####[facility] [address] [place] [address] Beta 2 glycoprotein 1 IgM Qn (S) <9 Invalid Interpretation Code 0-32 [facility] Comment on above: Result Comment: The reference interval reflects a 3SD or 99th percentile interval, which is thought to represent a potentially clinically significant result in accordance with the International Consensus Statement on the classification criteria for definitive antiphospholipid syndrome (APS). J Thromb Haem 2006;4:295-306. Performed at: [facility] [id number] MD Tony Laird Performed By: #### 1 36941566, 81217690, 0144139, 80625143, 29379496, 03932722, 14531763, 3652893, 7572978, 9646969, 92803489, 3432978 ####[facility] [address] [place] [address] Factor II, DNA Analysison F2 gene c.52469E>[facility] Comment Invalid Interpretation Code [facility] Comment on above: Result Comment: [...] the F2 gene and a c.1601G>A (p. Bmz746Wfb) variant in the F5 gene (commonly referred to as Factor V Leiden) have an approximately 20- fold increased risk for venous thromboembolism. Risks are likely to be even higher in more complex genotype combinations involving the F2 c.*97G>A variant and Factor V Leiden (PMID: 31090855). Additional risk factors include but are not [...] health care providers to discuss results at [phone] (2284). Test Details: Variant analyzed: c.*97G>A, previously referred to as Y69834S Methods/Limitations: DNA analysis of the F2 gene [...] developed and its performance characteristics determined by [employer]. It has not been cleared or approved by the Food and Drug Administration. References: Aries S, Enam AK, Martínez R, Dre WW, Gabriel JH; ACMG Professional Practice and Guidelines Committee. Addendum: [employer] consensus statement on factor V Leiden mutation testing. [employer]. 2020Jan 02. doi: 10.1038/u98396-101-20586-s. PMID: 79606409. Yarely CROCKETT. Prothrombin Thrombophilia. 2005May 24 [Updated 2020Dec 04]. In: Allen MP, Tim HH, Renee RA, et al., editors. Aren(Marlyn) [Internet]. Ida ([place]): [facility]; 3630-2524. Available from: https://www.ncbi.nlm.nih.gov/books/KGI3092/ Real S, Enma AK, Remy X, Gerry B, Santi EB, Amparo P, Humberto CS; [facility] Laboratory Web Analytics Specialist Committee. Venous thromboembolism laboratory testing (factor V Leiden and factor II c.*97G>A), 2018 update: a technical standard of the [place] [employer] and Genomics (ACMG). [employer] Med. 2018 Sep;20(12):9537-9596. doi: 10.1038/o86487-115-8035-s. Epub 2017Aug 04. PMID: 12656859. Performed By: #### 1 52338691, 40407151, 8487563, 79730649, 69385868, 48642006, 59137855, 6438372, 8464031, 7456718, 23696712, 9472305 ####[facility] [address] [place] [address] Factor V Leidenon 07-08-2023 F5 gene p.Fvy285[facility] (Bld/Tiss) Comment Invalid Interpretation Code [facility] Comment on above: Result Comment: Resu lt: c.1601G>A (p.Lgw819Ldf) - Not Detected This result is not associated with an increased risk for venous thromboembolism. See Additional Clinical Information and Comments. Additional Clinical Information: Venous thromboembolism is a multifactorial disease influenced by genetic, environmental, and circumstantial risk factors. The c.1601G>A (p. Fsq478Cup) variant in the F5 gene, commonly referred [...] c.*97G>A variant and Factor V Leiden (PMID: 89958951). Additional risk factors include but are not [...] health care providers to discuss results at [phone] (9920). Test Details: Variant Analyzed: c.1601G>A (p. Yji958Jtl), referred to as Factor V Leiden Methods/Limitations: [...] developed and its performance characteristics determined by [employer]. It has not been cleared or approved by the Food and Drug Administration. References: Aries S, Enma AK, Mauricio R, Dre WW, Gabriel JH; ACMG Professional Practice and Guidelines Committee. Addendum: [employer] [place] consensus statement on factor V Leiden mutation testing. [employer] Med. 2020Jan 02. doi: 10.1038/[id number]-j. PMID: 29159761. Yarely CROCKETT. Factor V Leiden Thrombophilia. 1998March 13 (Updated 2017Nov 03). In: Allen MP, Tim HH, Renee RA, et al., editors. Aren(R) (Internet). Ida ([place]): [facility]; 6910-9497. Available from: https://www.ncbi.nlm.nih.gov/books/JLB8375/ Real S, Enma AK, Jonel X, Gerry B, Santi EB, Amparo P, Humberto CS; [facility] Laboratory Web Analytics Specialist Committee. Venous thromboembolism laboratory testing (factor V Leiden and factor II c.*97G>A), 2018 update: a technical standard of the [employer] [place] and Genomics (ACMG). Tasha Med. 2018 Sep;20(12):6576-5475. doi: 10.1038/[id number]-y. Epub 2017Aug 04. PMID: 47325208. Performed By: #### 1 98772492, 78519370, 3265580, 69063394, 64312988, 73836823, 91508426, 6991514, 3572795, 1740455, 20852078, 6006630 ####[facility] [address] [place] [address] Lupus Anticoagon 07-08-2023 aPTT.lupus sensitive Coag (PPP) [Time] 33.8 second(s) Invalid Interpretation Code 0.0-43.5 [facility] Comment on above: Performed By: #### 1 77509538, 15330582, 7142699, 97667173, 04749880, 65838913, 96154660, 0422167, 0152136, 0699179, 95981928, 6490116 ####[facility] [address] [place] [address] dRVVT Coag (PPP) [Time] 57.5 second(s) High 0.0-47.0 [facility] Comment on above: Result Comment: Perf ormed at: [facility] [id number] MD Tony Laird Performed By: #### 1 99224507, 87377985, 4874937, 26397461, 70184375, 65582128, 11550263, 9973702, 3753023, 8897248, 74803978, 0264334 ####[facility] [address] [place] [address] Lupus anticoagulant two screening tests W Reflex Coag (PPP) [Interp] Comment: Invalid Interpretation Code [facility] Comment on above: Result Comment: No l upus anticoagulant was detected. These results are consistent with specific inhibitors to one or more common pathway factors (X, V, II or fibrinogen). Performed at: [facility] [id number] MD Tony Laird Performed By: #### 1 27402449, 39043393, 9766426, 87760147, 88786619, 95423408, 53234280, 8456471, 3804391, 1350199, 57337554, 4293642 ####[facility] [address] [place] [address] dRVVT CONFIRMon 07-08-2023 dRVVT/dRVVT.excess phospholipid Coag (PPP) [Ratio] 1.0 ratio Invalid Interpretation Code 0.8-1.2 [facility] Comment on above: Result Comment: Perf ormed at: [facility] [id number] MD Tony Laird Performed By: #### 1 59723827, 28555034, 5566244, 05471441, 29780891, 45653948, 33549808, 4361534, 0514662, 0204496, 48376721, 4856473 ####[facility] [address] [place] [address] Consenton 07-07-2023 Consent [id number]# 1.00CD:127 Normal [facility] Lab Miscellaneous-LCon 07-01 Lab Miscellaneous COMMENT Invalid Interpretation Code [facility] Comment on above: Result Comment: Test Ordered: [id number] Protein S-Functional Protein S-Functional 98 % BN Reference Range: 63-140 Protein S activity may be falsely increased (masking an abnormal, low result) in patients receiving direct Xa inhibitor (e.g., rivaroxaban, apixaban, edoxaban) or a direct thrombin inhibitor (e.g., dabigatran) anticoagulant treatment due to assay interference by these drugs. Performed at: [address] [id number] PhD Matthew Funez Performed By: #### 1 [id number] ####[address] [place] [address] Protein S-antigenon 07-01-20 23 Protein S Ag actual/normal IA (PPP) [Relative mass conc] 99 % Invalid Interpretation Code 60-150 [facility] Comment on above: Result Comment: This test was developed and its performance characteristics determined by [employer]. It has not been cleared or approved by the Food and Drug Administration. Performed By: #### 1 3359630 ####[address] [address] Protein S Free Ag actual/normal IA (PPP) [Relative mass conc] 93 % Invalid Interpretation Code 61-136 [facility] Comment on above: Result Comment: Perf ormed at: [address] [id number] MD Tony Laird Performed By: #### 1 1983804 ####[address] [address] Lab Miscellaneous-LCon 06-30 Lab Miscellaneous COMMENT Invalid Interpretation Code [facility] Comment on above: Result Comment: Test Ordered: [id number] Protein C-Functional Protein C-Functional 140 % BN Reference Range: 73-180 Performed at: [address] [id number] PhD Matthew Funez Performed By: #### 1 [id number] ####[address] [address] Result Comment: Test Ordered: [id number] Antithrombin Activity Antithrombin Activity 146 [H ] % BN Reference Range: 75-135 An elevated antithrombin activity is of no known clinical significance. Direct Xa inhibitor anticoagulants such as rivaroxaban, apixaban and edoxaban will lead to spuriously elevated antithrombin activity levels possibly masking a deficiency. Performed at: [address] [id number] Matthew Funez Auto Diffon 06-28-2023 Basophils/100 WBC (Bld) 0.6 % Normal 0.0-2.0 [facility] Comment on above: Order Comment: Order Added by Discern Expert. Performed By: #### 1 94036227, 63924368, 2871805, 08372238, 67867306, 10346635, 17545566, 3603597, 4503049, 6834586, 08591894, 1953361 ####[facility] [address] [place] [address] Basophils/Leukocytes Auto (Bld) [Pure # fraction] 0.0 E9/L Normal 0.0-0.2 [facility] Comment on above: Order Comment: Order Added by Discern Expert. Performed By: #### 1 39470326, 90025101, 7649980, 53098457, 34246445, 28610556, 35425652, 5532943, 7781235, 9820454, 51422213, 3684290 ####[facility] [address] [place] [address] Eosinophils/100 WBC (Bld) 0.7 % Normal 0.0-8.0 [facility] Comment on above: Order Comment: Order Added by Discern Expert. Performed By: #### 1 58877339, 20349717, 7251704, 78770201, 18844107, 30796889, 77620453, 7289932, 9217672, 6021260, 64588744, 1395865 ####[facility] [address] [place] [address] Eosinophils/Leukocytes Auto (Bld) [Pure # fraction] 0.1 E9/L Normal 0.0-0.5 [facility] Comment on above: Order Comment: Order Added by Discern Expert. Performed By: #### 1 65116279, 12089411, 8661243, 63742197, 27920251, 05317845, 63364442, 7607873, 4649477, 3604835, 96177960, 0429419 ####[facility] [address] [place] [address] Lymphocytes/100 WBC (Bld) 12.9 % Low 14.0-50.0 [facility] Comment on above: Order Comment: Order Added by Discern Expert. Performed By: #### 1 33203549, 57119947, 9242530, 32968668, 53594801, 42007297, 04103122, 6324508, 0323923, 4737968, 45123478, 3713288 ####[address] [place] [address] Lymphocytes/Leukocytes Auto (Bld) [Pure # fraction] 1.0 E9/L Normal 1.0-4.0 [facility] Comment on above: Order Comment: Order Added by Discern Expert. Performed By: #### 1 10389313, 25143440, 6193153, 80719700, 47847853, 70122236, 67452432, 2072876, 4634887, 4824053, 45287890, 7638199 ####[address] [place] [address] Monocytes/100 WBC (Bld) 6.8 % Normal 4.0-14.0 [facility] Comment on above: Order Comment: Order Added by Discern Expert. Performed By: #### 1 44762132, 36696969, 2057104, 16630179, 50024601, 55246048, 29055816, 9157324, 9634648, 1093582, 49668231, 8028379 ####[address] [place] [address] Monocytes/Leukocytes Auto (Bld) [Pure # fraction] 0.5 E9/L Normal 0.2-1.0 [facility] Comment on above: Order Comment: Order Added by Discern Expert. Performed By: #### 1 20921827, 39858202, 7592087, 36321007, 62754735, 00022961, 81990371, 0297044, 0677274, 7866700, 55290386, 4391050 ####[facility] [address] [place] [address] Neutrophils/100 WBC (Bld) 79.0 % High 36.0-75.0 [facility] Comment on above: Order Comment: Order Added by Discern Expert. Performed By: #### 1 88696517, 98695591, 3999089, 56708142, 97250405, 76830228, 74616354, 2348863, 7736180, 2699762, 94735772, 4228389 ####[facility] [address] [place] [address] Neutrophils/Leukocytes Auto (Bld) [Pure # fraction] 6.1 E9/L Normal 2.0-7.5 [facility] Comment on above: Order Comment: Order Added by Discern Expert. Performed By: #### 1 53009780, 84094233, 2659114, 43431640, 36297767, 54222904, 02469629, 1004310, 3546838, 9262806, 98206473, 4061260 ####[facility] [address] [place] [address] CBC w/ Auto Diffon 3 Erythrocyte distribution width (RBC) [Ratio] 14.7 % High 10.9-14.2 [facility] Comment on above: Performed By: #### 1 59674388, 54151949, 7029518, 14048026, 85231771, 74297213, 50002835, 9408360, 7489066, 5630409, 95435825, 5077706 ####[facility] [address] [place] [address] Hematocrit (Bld) [Volume fraction] 38.9 % Normal 34.0-46.0 [facility] Comment on above: Performed By: #### 1 70348389, 91002894, 7145730, 92511708, 20093943, 30160212, 18050192, 5913944, 4483671, 2766845, 92206928, 3329559 ####[facility] [address] [place] [address] Hemoglobin (Bld) [Mass/Vol] 13.1 g/dL Normal 12.0-16.0 [facility] Comment on above: Performed By: #### 1 95618243, 59018757, 3174274, 18951246, 82972077, 76320539, 61689906, 0493398, 1233936, 4194230, 45892741, 9785833 ####[facility] [address] [place] [address] MCH (RBC) [Entitic mass] 29.4 pg Normal 27.0-34.0 [facility] Comment on above: Performed By: #### 1 36959109, 81762757, 9782853, 53042018, 44431184, 96198024, 78493588, 3024720, 8976098, 7593585, 42324215, 8201358 ####[facility] [address] [place] [address] MCHC (RBC) [Mass/Vol] 33.6 g/dL Normal 31.4-36.0 [facility] Comment on above: Performed By: #### 1 24221098, 34845970, 3212861, 13608475, 68217525, 05519673, 25200489, 1768218, 6455116, 1755609, 65580115, 1529557 ####[facility] [address] [place] [address] MCV (RBC) [Entitic vol] 87.4 fL Normal 80.0-100.0 [facility] Comment on above: Performed By: #### 1 14122226, 30198085, 1893255, 73064460, 14945720, 89827505, 60452162, 4084220, 6384273, 3766500, 03747378, 7102707 ####[facility] [address] [place] [address] Platelet mean volume (Bld) [Entitic vol] 10.7 fL Normal 6.4-10.8 [facility] Comment on above: Performed By: #### 1 72906880, 67568524, 1027814, 83894828, 50524446, 08758593, 87903085, 5551298, 6774234, 8794442, 08480442, 3275112 ####[address] [place] [address] Platelets (Bld) [#/Vol] 183.0 E9/L Normal 150.0-500.0 [facility] Comment on above: Performed By: #### 1 07041191, 01894583, 5195076, 97494306, 34606342, 09989341, 56123586, 1180000, 7798196, 3587570, 54988532, 1897942 ####[address] [address] RBC (Bld) [#/Vol] 4.5 E12/L Normal 4.3-5.9 [facility] Comment on above: Performed By: #### 1 93762307, 45192212, 2608745, 32386648, 03081441, 04767028, 25645827, 6588596, 0831198, 2076755, 54047591, 0650826 ####[address] [place] [address] WBC corrected for nucl RBC Auto (Bld) [#/Vol] 7.7 E9/L Normal 4.0-11.0 [facility] Comment on above: Performed By: #### 1 49739792, 76721478, 7327719, 45459496, 57634128, 15105173, 68263012, 3075528, 7444522, 7716870, 90725192, 9841077 ####[address] [address] CMPon 06-28-2023 Albumin [Mass/Vol] 3.9 g/dL Normal 3.3-5.0 [facility] Comment on above: Performed By: #### 1 11445194, 14232611, 6496008, 25974707, 95034941, 48905823, 33728721, 1660684, 8310383, 9300262, 70070306, 6587986 ####[facility] [address] [place] [address] Albumin/Globulin (S) [Mass conc ratio] 0.9 Low 1.1-2.2 [facility] Comment on above: Performed By: #### 1 14892247, 06061223, 9040734, 23693420, 00690631, 65482530, 28137474, 5398443, 6291541, 9629525, 51040142, 2612737 ####[facility] [address] [place] [address] ALP [Catalytic activity/Vol] 69 Int._Unit/L Normal 21-98 [facility] Comment on above: Performed By: #### 1 23400345, 04317754, 9552723, 71210030, 29464513, 14218975, 54459975, 7761647, 6041245, 4082324, 41101657, 2485050 ####[facility] [address] [place] [address] ALT No additional P-5'-P [Catalytic activity/Vol] 19 Int._Unit/L Normal 6-46 [facility] Comment on above: Performed By: #### 1 65425596, 22291287, 0754884, 81301291, 68690394, 04637799, 09343189, 2632328, 9137038, 1492451, 41364533, 8986475 ####[facility] [address] [place] [address] Anion gap [Moles/Vol] 13 mmol/L Normal 6-16 [facility] Comment on above: Performed By: #### 1 84344261, 44458695, 7863137, 25785872, 76539405, 86023828, 93203914, 2979748, 6472822, 9531062, 00497596, 1020867 ####[address] [place] [address] AST [Catalytic activity/Vol] 22 Int._Unit/L Normal 5-43 [facility] Comment on above: Performed By: #### 1 06843021, 25807491, 9769754, 85226334, 04278045, 55289975, 16737259, 8232280, 0491232, 2480405, 05807264, 9968431 ####[address] [place] [address] Bilirubin [Mass/Vol] 0.4 mg/dL Normal 0.0-1.1 [facility] Comment on above: Performed By: #### 1 38367787, 00974633, 0661101, 01862839, 12383139, 60555080, 11854281, 0742292, 5062256, 6792071, 97787251, 9927552 ####[address] [address] Calcium [Mass/Vol] 9.8 mg/dL Normal 8.9-11.1 [facility] Comment on above: Performed By: #### 1 99326716, 05758893, 1281316, 75537117, 66895066, 39417618, 35363728, 4808854, 0331454, 7845004, 46802875, 6246748 ####[facility] [address] [place] [address] Chloride [Moles/Vol] 98 mmol/L Low 101-111 [facility] Comment on above: Performed By: #### 1 20209080, 73006947, 4746005, 85361505, 67279320, 29788048, 08270088, 5971211, 0873139, 7634408, 23783758, 7591364 ####[facility] [address] [place] [address] CO2 [Moles/Vol] 29 mmol/L Normal 21-31 [facility] Comment on above: Performed By: #### 1 39968062, 38076496, 8282923, 35077592, 50516033, 12976054, 47730276, 0018947, 7788984, 3701198, 77005696, 3644864 ####[facility] [address] [place] [address] Creatinine [Mass/Vol] 0.9 mg/dL Normal 0.5-1.3 [facility] Comment on above: Performed By: #### 1 22451136, 19907064, 0182894, 82249096, 47861833, 63570754, 15041611, 2299364, 2806794, 6391827, 47573724, 1500754 ####[facility] [address] [place] [address] Globulin (S) [Mass/Vol] 4.3 g/dL High 1.4-4.0 [facility] Comment on above: Performed By: #### 1 89027784, 58075927, 7007226, 68800156, 61850462, 38413520, 49450872, 3730355, 5684114, 9022951, 21272530, 4242773 ####[facility] [address] [place] [address] Glucose [Mass/Vol] 155 mg/dL Normal 55-199 [facility] Comment on above: Result Comment: If t his glucose result represents a fasting glucose, interpretation should refer to the following reference range: 55-99 mg/dL Performed By: #### 1 77283443, 04323041, 0421079, 20883693, 97897045, 68315555, 70645465, 0379370, 0344503, 8935450, 73940371, 1398936 ####[facility] [address] [place] [address] Potassium [Moles/Vol] 3.9 mmol/L Normal 3.5-5.3 [facility] Comment on above: Performed By: #### 1 53027452, 00326554, 4986060, 41543952, 20732077, 53695155, 81924034, 9976677, 0827410, 4184761, 75419097, 3199322 ####[facility] [address] [place] [address] Protein [Mass/Vol] 8.2 g/dL High 6.0-7.8 [facility] Comment on above: Performed By: #### 1 02131120, 31756181, 4847007, 15395633, 49804453, 61466720, 94954932, 5672487, 9099791, 3049548, 01565929, 9377257 ####[facility] [address] [place] [address] Sodium [Moles/Vol] 136 mmol/L Normal 135-145 [facility] Comment on above: Performed By: #### 1 97061436, 50716797, 0574360, 05472212, 39934857, 03791174, 09232093, 9967825, 2641750, 9268601, 28403290, 7728815 ####[facility] [address] [place] [address] Urea nitrogen [Mass/Vol] 22 mg/dL High 5-21 [facility] Comment on above: Performed By: #### 1 97633426, 25163605, 7658042, 93977792, 44889674, 13220475, 99244866, 6157739, 5683890, 9997473, 72822911, 9694324 ####[facility] [address] [place] [address] Urea nitrogen/Creatinine [Mass ratio] 24 No Units High 10-20 [facility] Comment on above: Performed By: #### 1 85547530, 54729256, 1469330, 85761158, 29262562, 70262895, 79412761, 4551467, 2405387, 0631037, 49937694, 6015849 ####[facility] [address] [place] [address] Consent for Treatmenton 06-01 Consent for Treatment [id number]#1 .00CD:127 Normal [facility] Consent for Treatment [id number]#1 .00CD:127 Normal [facility] D-Dimeron 06-28-2023 Fibrin D-dimer FEU (PPP) [Mass/Vol] 392 [id number] Normal 215-500 [facility] Comment on above: Result Comment: [...] infections Liver cirrhosis Performed By: #### 1 70264886, 79271700, 1727030, 24556622, 78106509, 42547430, 18129978, 8183083, 2387109, 1477820, 91398001, 6862936 ####[facility] [address] [place] [address] Lab Miscellaneous-LCon 06-28 Lab Miscellaneous orderable test Invalid Interpretation Code [facility] Comment on above: Order Comment: order able test Performed By: #### 1 250151522 ####[facility] [address] [place] [address] Test Code 561044 Invalid Interpretation Code [facility] Comment on above: Order Comment: order able test Performed By: #### 1 396898479 ####[facility] [address] [place] [address] Test Code 057747 Invalid Interpretation Code [facility] Comment on above: Performed By: #### 1 304396902 ####[facility] [address] [facility] [place] [address] Test Code 789040 Invalid Interpretation Code [facility] Comment on above: Performed By: #### 1 754188118 ####[facility] [address] [facility] [place] [address] Test Code 780506 Invalid Interpretation Code [facility] Comment on above: Performed By: #### 1 220285267 ####[facility] [address] [place] [address], [place] [address] Test Name Prot s, ant Invalid Interpretation Code [facility] Comment on above: Order Comment: order able test Performed By: #### 1 488636344 ####[address] [place] [address] Test Name Prot C, func Invalid Interpretation Code [facility] Comment on above: Performed By: #### 1 967716390 ####[facility] [address] [facility] [place] [address] Test Name AntiThromb III Invalid Interpretation Code [facility] Comment on above: Performed By: #### 1 808360661 ####[facility] [address] [facility] [place] [address] Test Name Prot S, func Invalid Interpretation Code [facility] Comment on above: Performed By: #### 1 696891250 ####[facility] [address] [facility] [place] [address] Oncology Noteon 06-28-2023 Oncology Note Oncology Cigarette Stamper Office Visit/Treatment Note Current Patient Status/Reason: Pt [...] concerns to me at this time. Normal [facility] Comment on above: Result Comment: Dorene michaelally Signed By: Tre CAZARES, Kristy\.marek\Date and Time [...] was referred to our hematology office at [facility] for Thrombophilia work up and decision about duration of anticoagulation for the acute PE diagnosed on . She is a 57-year-old female cigarette smoker with history of hypertension, wai-cjjlzty-tdloggpox diabetes mellitus, obesity, chronic hypoxic respiratory failure on 3 L home oxygen, and depression who presented on 06/16/23 to [facility] ER with complaints of right-sided chest [...] puff(s), Inhalation, BID fluticasone Nasal 0.05 mg/inh [place] 2 spray(s), Nasal, Daily furosemide 20 mg Tab 20 mg = 1 tab(s), Oral, Daily gabapentin 300 mg Cap 300 mg = 1 cap(s), Oral, BID hydrochlorothiazide-l isinopril 25 mg-20 mg Tab 1 tab(s), Oral, Daily lamotrigine 25 mg Tab 25 mg = 1 tab(s), Oral, BID pioglitazone 15 mg Tab 15 mg = 1 tab(s), Oral, Daily Potassium Chloride (Knv-Yqwg-Nup 10) 10 mEq oral tablet, extended release [...] list: All Problems Smoker / SNOMED CT 348120459 / Confirmed Added secondary to documentation in Social History. Histories Past Medical History: No active or resolved past medical history items have been selected or recorded. Family History: History is unknown. Procedure history: delivery (SNOMED CT 2172680444) on 05/05/1987 at 21 Years. delivery (SNOMED CT 3813050438) on 06/20/1984 at 18 Years. Cyst (SNOMED CT 0109363587). Comments: 06/28/2023 11:00 EDT - Prisca Montoya Removal of cyst of right foot. Knee (SNOMED CT 728333008). Comments: 06/28/2023 11:01 EDT - Prisca Montoya [...] Rate 16 (more content not included)... Normal [facility] eGFRon 06-28-2023 GFR/1.73 sq M.predicted among non-blacks MDRD (S/P/Bld) [Vol rate/Area] 74 mL/min/1.73 m2 Normal >=59 [facility] Comment on above: Order Comment: Order added by Discern Expert. Result Comment: [employer] nita kidney disease could be indicated at eGFR's of less than 60 mL/min/1.73m2. Kidney failure is indicated at less than 15 mL/min/1.73m2. Performed By: #### 1 07708858, 87655936, 0258340, 07104188, 48896018, 41666448, 51440701, 5365274, 3251235, 3130103, 18730893, 2091810 ####[facility] [address] [place] [address] Discharge Instructionson Discharge Instructions [id number]# 1.00CD:127 Normal [facility] CHEMISTRYOrdered By: Lab ROP User on 06-17-2023 Glucose [Mass/Vol] 109 mg/dL High 55 - 99 mg/dL [facility] POC Subsection Comment on above: Result Comment: Rafaela VELASQUEZ POC Device SN [id number] Invalid Interpretation Code FT POC Subsection POC User ID [id number] Invalid Interpretation Code [facility] POC Subsection POC Username BRENDA KHAN Invalid Interpretation Code [facility] POC Subsection Glucose [Mass/Vol] 133 mg/dL High 55 - 99 mg/dL [facility] POC Subsection Comment on above: Result Comment: Rafaela VELASQUEZ POC Device SN [id number] Invalid Interpretation Code FT POC Subsection POC User ID [id number] Invalid Interpretation Code FT POC Subsection POC Username FAVIOLA MURO Invalid Interpretation Code [facility] POC Subsection Glucose [Mass/Vol] 109 mg/dL High 55 - 99 mg/dL [facility] POC Subsection Comment on above: Result Comment: Rafaela VELASQUEZ POC Device SN [id number] Invalid Interpretation Code FT POC Subsection POC User ID [id number] Invalid Interpretation Code [facility] POC Subsection POC Username BRENDA KHAN Invalid Interpretation Code [facility] POC Subsection CHEMISTRYOrdered By: Kimberley Freeman on 06-17-2023 HbA1c (Bld) [Mass fraction] 5.7 % Normal <=5.9% [facility] ChemAutoSS CHEMISTRYOrdered By: SYSTEM SYSTEM on 06-17-2023 Troponin I.cardiac [Mass/Vol] 5.20 pg/mL Low 10.10 - 27.10 pg/mL [facility] Remisol Capillary Glucose POCon 05-31 Glucose [Mass/Vol] 109 mg/dL High 55-99 [facility] Comment on above: Result Comment: Rafaela VELASQUEZ Performed By: #### 2 [id number] ####[facility] [address] [place] [address] Glucose [Mass/Vol] 133 mg/dL High 55-99 [facility] Comment on above: Result Comment: Rafaela garzon RN/ Performed By: #### 2 [id number] ####[facility] [address] [place] [address] Glucose [Mass/Vol] 109 mg/dL High 55-99 [facility] Comment on above: Result Comment: Rafaela garzon RN/ Performed By: #### 2 [id number] ####[facility] [address] [place] [address] Discharge Note-Nursingon Discharge Note-Nursing ALIYA MOORE :1965 Visit Date:06/16/2023 Inpatient Discharge Instructions Your Care Team Admitting Physician - JANETTE BOOTHE, Alex Reason for Your Visit Right after I [...] care physician. This Is Your Medications List [facility] Prescription (ATORVASTATIN CALCIUM 40 MG TABLET) albuterol (Ventolin HFA 90 mcg/inh Aerosol-Adpt) albuterol-ipratropium (albuterol-ipratropiu m Inh Debby 3 mL UD) apixaban (Eliquis 5 mg oral tablet) aspirin (Aspirin Low Dose 81 mg oral enteric coated tablet) busPIRone (busPIRone 15 mg Tab) duloxetine (duloxetine 60 mg oral delayed release capsule) fluticasone (Flovent HFA 110 Aerosol) fluticasone nasal (fluticasone Nasal 0.05 mg/inh [place]owa) formoterol-glycopyrro late (Bevespi Aerosphere 9 mcg-4.8 mcg/inh inhalation aerosol) furosemide (furosemide 20 mg Tab) gabapentin (gabapentin 300 mg Cap) hydrochlorothiazide-l isinopril (hydrochlorothiazide- lisinopril 25 mg-20 mg Tab) lamotrigine (lamotrigine 25 mg Tab) multivitamin (Daily Harvinder oral tablet) pioglitazone (pioglitazone 15 mg Tab) potassium chloride (Potassium Chloride (Jvh-Pcze-Djx 10) 10 mEq oral tablet, extended release) [...] Christian When: 06/28/2023 11:00 AM EDT Where: [facility] [address] [place] [address] [place] [address]- Follow Up with BREA JJ When: Within 1 week Comments: A voice message is left with this office with your information so they can call you for a follow up appiontment. Please call them if you do not hear from them in a few days. Thank you. Where: [address] [place] [address] [phone] Business (1) Medications What How Much When [...] oral enteric coated tablet) Every day 06/18 @ 9 AM Unchanged busPIRone (busPIRone 15 mg Tab) 1 Tablets By Mouth 3 times a day 06/17 @ PM Unchanged duloxetine (duloxetine 60 mg oral delayed release capsule) Every day 06/18 9 AM Unchanged fluticasone (Flovent HFA 110 Aerosol) 2 Puffs Inhalation 2 times a day 06/17 PM Unchanged fluticasone nasal (fluticasone Nasal 0.05 mg/ inh [place]) 2 Sprays Nasal Inhalation Every day each nostril 06/18 @ 9 AM Unchanged formoterol-glycopyrro late (Bevespi Aerosphere 9 mcg-4.8 mcg/ inh inhalation aerosol) 2 Puffs Inhalation 2 times a day 06/17 PM Unchanged furosemide (furosemide 20 mg Tab) 1 Tablets By Mouth Every day 06/18 @ 9 AM Unchanged gabapentin (gabapentin 300 mg Cap) [...] day 06/18 (more content not included)... Normal [facility] [id number] 06-17-2023 HbA1c (Bld) [Mass fraction] 5.7 % Normal <=5.9 [facility] Comment on above: Performed By: #### 7 [id number] ####[facility] [address] [place] [address] Inpatient Clinical Summaryon 06-17-2023 Inpatient Clinical Summary [address] [address] Clinical Summary Person Information: Name: ALIYA MOORE Age: 57 Years : 1965 Sex: Female PCP: BREA JJ CNP Marital Status: Race: White Ethnicity: Non- or Language: Nauruan Visit Id: Visit Reason: Chest pain; MID STERNUM PAIN Speciality: Acuity: Enc Type: Observation Med Service: Medical Arrival: 06/16/2023 15:45:03 Discharge: Dispo Type: Admitted as IP to this Hosp Address: [address] [place] [address] [address] [facility] [id number] Provider Notes: Diagnosis: 1:Chest pain; 2:Acute pulmonary [...] day. fluticasone nasal (fluticasone Nasal 0.05 mg/inh [place]) 2 Sprays Nasal Inhalation every day. each [...] Mouth every day. potassium chloride (Potassium Chloride (Lho-Dijy-Azq 10) 10 mEq oral tablet, extended release) [...] Follow up: With: Address: When: BREA JJ [facility] [address] [place], [place] [phone] Business (1) Within 1 week Comments: A voice message is left with this office with your information so they can call you for a follow up appiontment. Please call them if you do not hear from them in a few days. Thank you. With: Address: When: Ezekiel Christian [facility], [address] [place] [id number] 06/28/2023 11:00 AM Type Location Start [facility] ONC Office Visit [facility] (FT) [facility]/28/2023 11:00 AM 06/28/2023 11:45 AM Confirmed Patient Education Information: Normal [facility] Inpatient Patient Summaryon 06-17-2023 Inpatient Patient Summary [address] [address] Patient Discharge Instructions PERSON INFORMATION Name: LITO MOORESHANNON Rosales Date of : 1965 Current Date: 06/17/2023 09:58:26 PHYSICIANS Admitting Physician: Alex BARRIENTOS MD Primary Care Physician: BREA JJ CNP PCP Phone Number: [phone] Comment: Discharge Diagnosis: 1:Chest pain; 2:Acute pulmonary [...] With: Address: When: BREA JJ [address] [place], [place] [phone] Business (1) Within 1 week Comments: A voice message is left with this office with your information so they can call you for a follow up appiontment. Please call them if you do not hear from them in a few days. Thank you. With: Address: When: Ezekiel Christian [facility], [address] [place] [address] 06/28/2023 11:00 AM In the event that this physician does not participate in your insurance network, please consult with your insurance company to find a nearby participating provider. Type Location Start [facility] ONC Office Visit [facility] ([facility]) [facility]2023 11:00 AM 06/28/2023 11:45 AM Confirmed Comment: IROSEANNA PAMELA J, have received the attached patient [...] ____ fluticasone nasal (fluticasone Nasal 0.05 mg/inh [place]) 2 Sprays Nasal Inhalation every day. each [...] Dose: ____ potassi (more content not included)... [facility] Insurance Correspondenceon 0 06-17-2023 Insurance Correspondence [id number]#1 .00CD:127 [facility] Interdisciplinary Note - Rodney e Manageron 06-17-2023 Interdisciplinary Note - Bale Coverer Pt will dc home today pending ECHO and Eliquis pricing. Pt's will transport. Pt has POC here to go home on O2. CRM to follow. Eliquis $0. Pt aware. [facility] Comment on above: Result Comment: Elec tronically Signed By: Marcia Montgomery\Date and Time Signed: 06/17/23 09:44 EDT Monitor Recordon 06-17-2023 Monitor Record [id number]# 1.00CD:127 [facility] Monitor Record [id number]# 1.00CD:127 [facility] Monitor Record [id number]# 1.00CD:127 [facility] Monitor Record [id number]# 1.00CD:127 Normal [facility] Patient Education - Texton 0 06-17-2023 Patient Education - Text Normal [facility] Progress Note-Nurseon 2022 Progress Note-Nurse This RN cannot complete the Medication Reconciliation as to the fact that the Patient cannot recall the medications she is taking at home. The list will be available in the morning once the patients will be here in the hospital on 06/17/2023. Dr. Drummond was informed about this matter. On going care provided. Normal [facility] Troponin 6 Hr.on 06-17-2023 Troponin I.cardiac [Mass/Vol] 5.50 pg/mL Low 10.10-27.10 [facility] Comment on above: Result Comment: The 95% CI (Confidence Interval) PPV (Positive Predictive Value) for myocardial infarction in females is 38 pg/mL, in males 51 pg/mL. The results should be used in conjunction with clinical conditions of myocardial infarction. (Access High Sensitivity Troponin I Instructions For Use, Transcriptic, May 2018) Performed By: #### 1 [id number] ####[facility] [address] [place] [address] Troponin 9 Hr.on 06-17-2023 Troponin I.cardiac [Mass/Vol] 5.20 pg/mL Low 10.10-27.10 [facility] Comment on above: Result Comment: The 95% CI (Confidence Interval) PPV (Positive Predictive Value) for myocardial infarction in females is 38 pg/mL, in males 51 pg/mL. The results should be used in conjunction with clinical conditions of myocardial infarction. (Access High Sensitivity Troponin I Instructions For Use, Transcriptic, May 2018) Performed By: #### 1 [id number] ####[facility] [address] [place] [address] US LE Venous Duplex Bilatera danni 06-17-2023 [...] MD Transcribed by: NOHEMY Technologist: ALISSA Barkley [facility] XR Chest Single Viewon 06-17 [...] mGy = na DAP = na Normal [facility] Auto DiffOrdered By: SYSTEM SYSTEM on 06-16-2023 Basophils/100 WBC (Bld) 0.3 % Normal 0.0-2.0 [facility] HemeAutoSS Comment on above: Order Comment: Order Added by Discern Expert. Performed By: #### 2 824630, 4781129, 80610313, 9230286, 30106791, 59534964 ####[address] [place] [address] Basophils/Leukocytes Auto (Bld) [Pure # fraction] 0.0 E9/L Normal 0.0-0.2 [facility] HemeAutoSS Comment on above: Order Comment: Order Added by Quinton Expert. Performed By: #### 2 514151, 7620872, 36770178, 8464748, 42768961, 66163562 ####[place] [address] [address] Eosinophils/100 WBC (Bld) 0.9 % Normal 0.0-8.0 [facility]eAutoSS Comment on above: Order Comment: Order Added by Discern Expert. Performed By: #### 2 802332, 6318454, 27642473, 8465044, 17581633, 20231535 ####[address] [address] Eosinophils/Leukocytes Auto (Bld) [Pure # fraction] 0.1 E9/L Normal 0.0-0.5 [facility]eAuto[facility] Comment on above: Order Comment: Order Added by Quinton Expert. Performed By: #### 2 936572, 0280720, 10492328, 2332791, 24316748, 48946692 ####[place] [address] [address] Lymphocytes/100 WBC (Bld) 14.3 % Normal 14.0-50.0 [facility]eAutoSS Comment on above: Order Comment: Order Added by Quinton Expert. Performed By: #### 2 881155, 7179765, 41257642, 4391864, 68999590, 64806071 ####[address] [address] Lymphocytes/Leukocytes Auto (Bld) [Pure # fraction] 1.2 E9/L Normal 1.0-4.0 [facility]eAuto[facility] Comment on above: Order Comment: Order Added by Quinton Expert. Performed By: #### 2 363791, 8990877, 37713203, 0398084, 90143102, 49228863 ####[address] [address] Monocytes/100 WBC (Bld) 8.8 % Normal 4.0-14.0 [facility] HemeAutoSS Comment on above: Order Comment: Order Added by Quinton Expert. Performed By: #### 2 054015, 3963531, 79503596, 9828044, 17356162, 74846499 ####[address] [place] [address] Monocytes/Leukocytes Auto (Bld) [Pure # fraction] 0.7 E9/L Normal 0.2-1.0 [facility]eAuto[facility] Comment on above: Order Comment: Order Added by Discern Expert. Performed By: #### 2 244970, 8800909, 01247410, 8234490, 75630448, 86762980 ####[address] [place] [address] Neutrophils/100 WBC (Bld) 75.7 % High 36.0-75.0 [facility]eAuto[facility] Comment on above: Order Comment: Order Added by Discern Expert. Performed By: #### 2 462344, 8322796, 03635908, 9173049, 27954147, 91850206 ####[address] [address] Neutrophils/Leukocytes Auto (Bld) [Pure # fraction] 6.4 E9/L Normal 2.0-7.5 [facility]eAuto[facility] Comment on above: Order Comment: Order Added by Discern Expert. Performed By: #### 2 027858, 3627297, 82680531, 8195020, 62780265, 21696509 ####[address] [address] BMPOrdered By: SYSTEM SYSTEM on 06-16-2023 Creatinine [Mass/Vol] 0.8 mg/dL Normal 0.5-1.3 [facility] Comment on above: Performed By: #### 2 370473, 5332430, 40902900, 3992980, 68481649, 14024349 ####[address] [place] [address] Urea nitrogen [Mass/Vol] 16 mg/dL Normal 5-21 [facility] Remisol Comment on above: Performed By: #### 2 700600, 6925382, 97640943, 6636596, 05292045, 41228192 ####[facility] [address] [place] [address] Anion gap [Moles/Vol] 12 mmol/L Normal 6-16 [facility] Remisol Comment on above: Performed By: #### 2 674757, 3628718, 83680831, 1305604, 91080131, 82069356 ####[facility] [address] [place] [address] Calcium [Mass/Vol] 9.9 mg/dL Normal 8.9-11.1 [facility] R emisol Comment on above: Performed By: #### 2 315957, 9124526, 04979700, 6529138, 56769432, 03353898 ####[facility] [address] [place] [address] Chloride [Moles/Vol] 101 mmol/L Normal 101-111 [facility] Remisol Comment on above: Performed By: #### 2 440424, 4782116, 29748409, 5548142, 87322218, 57484770 ####[facility] [address] [place] [address] CO2 [Moles/Vol] 27 mmol/L Normal 21-31 [facility] Wes debby Comment on above: Performed By: #### 2 182771, 2528157, 75237398, 4043123, 97500561, 47878504 ####[facility] [address] [place] [address] Glucose [Mass/Vol] 129 mg/dL Normal 55-199 [facility] emisol Comment on above: Result Comment: If t his glucose result represents a fasting glucose, interpretation should refer to the following reference range: 55-99 mg/dL Performed By: #### 2 237305, 2546978, 40311426, 1367300, 68681897, 44915563 ####[facility] [address] [place] [address] Potassium [Moles/Vol] 3.9 mmol/L Normal 3.5-5.3 [facility] Remisol Comment on above: Performed By: #### 2 728471, 7481246, 15297406, 7293854, 96628141, 70899375 ####[facility] [address] [place] [address] Sodium [Moles/Vol] 136 mmol/L Normal 135-145 [facility] R emisol Comment on above: Performed By: #### 2 195464, 3422423, 98616276, 4505138, 17726785, 11148479 ####[facility] [address] [place] [address] BMPon 06-16-2023 Urea nitrogen/Creatinine [Mass ratio] 20 No Units Normal 10-20 [facility] Comment on above: Performed By: #### 2 622227, 8152205, 65385216, 1156678, 23997379, 05364303 ####[facility] [address] [place] [address] CBC w/ Auto DiffOrdered By: Yanet Davis on 06-16-2023 Erythrocyte distribution width (RBC) [Ratio] 14.8 % High 10.9-14.2 [facility] HemeAutoSS Comment on above: Performed By: #### 2 083489, 9331024, 48053322, 0340800, 98268387, 79288561 ####[address] [place] [address] Hematocrit (Bld) [Volume fraction] 40.0 % Normal 34.0-46.0 [facility] HemeAutoSS Comment on above: Performed By: #### 2 132747, 3690885, 81259557, 7006564, 60052535, 81048509 ####[facility] [address] [place] [address] Hemoglobin (Bld) [Mass/Vol] 13.5 g/dL Normal 12.0-16.0 [facility] HemeAutoSS Comment on above: Performed By: #### 2 959825, 6298705, 51284926, 4984669, 17210794, 17676487 ####[facility]uel A [facility] [address] [place] [address] MCH (RBC) [Entitic mass] 29.6 pg Normal 27.0-34.0 [facility] HemeAutoSS Comment on above: Performed By: #### 2 410565, 6929053, 51008618, 5702631, 41993256, 84242256 ####[facility]ig[facility] A [address] [address] MCHC (RBC) [Mass/Vol] 33.8 g/dL Normal 31.4-36.0 [facility] HemeAutoSS Comment on above: Performed By: #### 2 678150, 3141240, 60726863, 8896896, 15726832, 74521432 ####[facility] [address] [address] MCV (RBC) [Entitic vol] 87.6 fL Normal 80.0-100.0 [facility]eAutoSS Comment on above: Performed By: #### 2 461164, 4023989, 95815079, 1660124, 27586580, 08401273 ####Miguel A [address] [address] Platelet mean volume (Bld) [Entitic vol] 10.5 fL Normal 6.4-10.8 [facility] HemeAutoSS Comment on above: Performed By: #### 2 059082, 0415078, 43798138, 5376766, 08180443, 03814316 ####Miguel A [address] [address] Platelets (Bld) [#/Vol] 172.0 E9/L Normal 150.0-500.0 [facility] HemeAutoSS Comment on above: Performed By: #### 2 914309, 0982269, 92328456, 1493467, 76769719, 12796987 ####Miguel A [address] [address] RBC (Bld) [#/Vol] 4.6 E12/L Normal 4.3-5.9 [facility] HemeAutoSS Comment on above: Performed By: #### 2 411762, 5963199, 74517624, 6319428, 81958769, 34835266 ####[facility]iguel A [facility] [address] [place] [address] WBC corrected for nucl RBC Auto (Bld) [#/Vol] 8.4 E9/L Normal 4.0-11.0 [facility] HemeAutoSS Comment on above: Performed By: #### 2 090353, 0990517, 48532449, 3982794, 65513118, 02247579 ####[facility] A [facility] [address] [place] [address] CHEMISTRYOrdered By: SYSTEM SYSTEM on 06-16-2023 Troponin I.cardiac [Mass/Vol] 5.50 pg/mL Low 10.10 - 27.10 pg/mL [facility] Troponin I.cardiac [Mass/Vol] 5.30 pg/mL Low [...] s Normal 9.4 - 1 2.5 second(s) [facility] Auto Coag CTA Cheston 06-16-2023 CTA Chest [...] 370 Contrast amount in ml's: 89 Normal [facility] Consent for Treatmenton 05-31 Consent for Treatment [id number]#1 .00CD:127 Normal [facility] D-Dimeron 06-16-2023 Fibrin D-dimer FEU (PPP) [Mass/Vol] 532 [id number] Abnormal 215-500 [facility] Comment on above: Result Comment: [...] infections Liver cirrhosis Performed By: #### 2 942721 ####[facility] [address] [place] [id number] ED Clinical Summaryon 2022 ED Clinical Summary [address] [address] ED Clinical Summary Person Information Name: ALIYA MOORE [facility] Age: 57 Years : 1965 Sex: Female Language: Nauruan PCP: BREA JJ CNP Marital Status: Visit Id: Visit Reason: Chest pain; MID STERNUM PAIN Speciality: Acuity: 2 Enc Type: Emergency Med Service: Emergency Arrival: 06/16/2023 15:45:03 Discharge: LOS: 000 06:14 Checkin: 06/16/2023 15:45:03 Checkout: 06/16/2023 21:59:01 Dispo Type: Admitted as IP to this [facility] EVENTS: Event Name Event Status Request [...] 06/16/2023 21:04:33 Admit Request 06/16/2023 21:04:33 ADDRESS: [address] [place] [address] [address] [facility] [phone] PHYS DOC NOTES: MEDICAL INFORMATION: Prescriptions Given: PATIENT EDUCATION INFORMATION: Instructions: Follow up: DIAGNOSIS: 1:Chest pain; 2:Acute pulmonary embolism; 3:Sinus tachycardia; 4:COPD without exacerbation; 5:Hypertension; 6:Diabetes mellitus; 7:Depression; 8:Chronic hypoxemic respiratory failure; 9:Obese; 10:Smoker; 11:On deep vein thrombosis (DVT) prophylaxis [facility] ED Note-Nursingon 06-16-2023 ED Note-Nursing Per JUAN Reeves, patient okay to take at home Xanax medications. Pt took 1/2 of a .25mg tab. [facility] ED Note-Physicianon 06-16-20 ED Note-Physician Basic [...] and Complexity of Problems Differential Diagnosis: [] [facility] Data External documents reviewed: [] [...] Tab, 162 (more content not included)... Normal [facility] Comment on above: Result Comment: Elec tronically Signed By: Leandro Jo PA-C\.br\Date and Time Signed: 06/16/23 18:46 EDT\.br\Electronically Co-Signed By: Ramses Hair DO\.br\Date and Time Co-Signed: 06/16/23 19:30 EDT ED Patient Education Noteon 06-16-2023 ED Patient Education Note Normal [facility] ED Patient Summaryon 023 ED Patient Summary [address] [address] Patient Discharge Instructions Person Information Name: ALIYA MOORE Age: 57 Years Arrival Date: 06/16/2023 15:45:03 Discharge Diagnosis: 1:Chest pain; 2:Acute pulmonary embolism; 3:Sinus tachycardia; 4:COPD without exacerbation; 5:Hypertension; 6:Diabetes mellitus; 7:Depression; 8:Chronic hypoxemic respiratory failure; 9:Obese; 10:Smoker; 11:On deep vein thrombosis (DVT) prophylaxis Primary Care Physician: BREA JJ CNP Provider Information Primary Provider: Ramses Hair DO Advanced Government Affairs Director:Leandro Jo PA-C The exam and treatment you received in the Emergency Department were for an urgent problem and are not intended as complete care. It is important that you follow up with a doctor, nurse practitioner, or physician?s financial planning assistant for ongoing care. If your symptoms [...] opioids can be used to help relieve dfeiqkfp-of-lytdzs pain and are often prescribed following a [...] be struggling with addiction, tell your health daycare director and ask for guid (more content not included)... Normal [facility] Monitor Recordon 06-16-2023 Monitor Record [id number]# 1.00CD:127 Normal [facility] PT & PTTon 06-16-2023 aPTT Coag (PPP) [Time] 31.8 second(s) Normal 25.1-36.5 [facility] Comment on above: Result Comment: [...] the same coagulation reagent and instrumentation as [facility]. Currently there are no coagulation studies available worldwide for children to 14 days, and no normal ranges. Heparin therapeutic range (represented by Anti-Factor Xa activity of 0.2 - 0.4 U/mL) corresponds to PTT of 56.6 - 109.0 sec. Performed By: #### 2 820258, 0647067, 53441149, 4135469, 15321317, 14527466 ####[facility] [address] [place] [address] PT Coag (PPP) [Time] 11.4 second(s) Normal 9.4-12.5 [facility] Comment on above: Result Comment: [...] the same coagulation reagent and instrumentation as [facility]. Currently there are no coagulation studies available worldwide for children to 14 days, and no normal ranges. Performed By: #### 2 723079, 8914388, 43005687, 3406319, 10573827, 69518100 ####[facility] [address] [place] [address] PT & PTTOrdered By: David sher on 06-16-2023 INR Coag (PPP) [Relative time] 1.0 {INR} Invalid Interpretation Code [facility] Auto Coag Comment on above: Result Comment: INR results are specifically intended to assess patients stabilized on long-term Anticoagulation therapy suggested INR?s ?Less Intensive Anticoagulation? 2.0 ? 3.0 Conventional Range 3.0 ? 4.5 Performed By: #### 2 962564, 9049718, 56975192, 6299324, 23246480, 55405885 ####[facility] [address] [place] [address] Troponin 0 Hr.on 06-16-2023 Troponin I.cardiac [Mass/Vol] 4.60 pg/mL Low 10.10-27.10 [facility] Comment on above: Result Comment: The 95% CI (Confidence Interval) PPV (Positive Predictive Value) for myocardial infarction in females is 38 pg/mL, in males 51 pg/mL. The results should be used in conjunction with clinical conditions of myocardial infarction. (Access High Sensitivity Troponin I Instructions For Use, Transcriptic, May 2018) Performed By: #### 2 950820, 5546186, 02952673, 1421322, 67297052, 15173854 ####[facility] [address] [place] [address] Troponin 3 Hr.on 06-16-2023 Troponin I.cardiac [Mass/Vol] 5.30 pg/mL Low 10.10-27.10 [facility] Comment on above: Result Comment: The 95% CI (Confidence Interval) PPV (Positive Predictive Value) for myocardial infarction in females is 38 pg/mL, in males 51 pg/mL. The results should be used in conjunction with clinical conditions of myocardial infarction. (Access High Sensitivity Troponin I Instructions For Use, Transcriptic, May 2018) Performed By: #### 1 [id number] ####[facility] [address] [place] [address] eGFROrdered By: SYSTEM SYSTE Athersys on 06-16-2023 GFR/1.73 sq M.predicted among non-blacks MDRD (S/P/Bld) [Vol rate/Area] 85 mL/min/1.73 m2 Normal >=59 [facility] Chem S Comment on above: Order Comment: Order added by Discern Expert. Result Comment: [employer] nita kidney disease could be indicated at eGFR's of less than 60 mL/min/1.73m2. Kidney failure is indicated at less than 15 mL/min/1.73m2. Performed By: #### 2 879126, 1708648, 97126568, 3939991, 63878565, 15475731 ####[facility] [address] [place] [address] 36on 06-09-2023 36 Patient will need a follow up appointment for further refills Normal [facility] BNPon 02-23-2023 Natriuretic peptide B (Bld) [Mass/Vol] 114.0 pg/mL Normal <=900.0 [facility] Comment on above: Performed By: #### C MP, BNP, HSTROPN #### [facility] [address] [place] [address] Dr. Xiomy Lennon CBC AUTO DIFFon 02-23-2023 BASO # 0.0 103/ul Normal 0.0-0.1 [facility] Comment on above: Performed By: #### P T, PTT #### [facility] [address] [place] [address] Dr. Xiomy Lennon Basophils/100 WBC (Bld) 0.2 % Normal 0.2-2.0 [facility] Comment on above: Performed By: #### P T, PTT #### [facility] [address] [place] [address] Dr. Xiomy Lennon EO # 0.2 103/ul Normal 0.0-0.7 [facility] Comment on above: Performed By: #### P T, PTT #### [facility] [address] [place] [address] Dr. Xiomy Lennon Eosinophils/100 WBC (Bld) 1.8 % Normal 0.9-7.0 [facility] Comment on above: Performed By: #### P T, PTT #### [facility] [address] [place] [address] Dr. Xiomy Lennon Erythrocyte distribution width (RBC) [Ratio] 15.4 % Critically high 11.0-15.0 [facility] Comment on above: Performed By: #### P T, PTT #### [facility] [address] [place] [address] Dr. Xiomy Lennon Hematocrit (Bld) [Volume fraction] 37.6 % Normal 36.0-48.0 [facility] Comment on above: Performed By: #### P T, PTT #### [facility] [address] [place] [address] Dr. Xiomy Lennon Hemoglobin (Bld) [Mass/Vol] 12.2 g/dL Normal 12.0-16.0 [facility] Comment on above: Performed By: #### P T, PTT #### [facility] [address] [place] [address] Dr. Xiomy Lennon IG # 0.02 10e3/ul Normal 0.00-0.03 [facility] Comment on above: Performed By: #### P T, PTT #### [facility] [address] [place] [address] Dr. Xiomy Lennon IG % 0.2 % Normal 0.0-0.5 [facility] Comment on above: Performed By: #### P T, PTT #### [facility] [address] [place] [address] Dr. Xiomy Lennon LYMPH # 1.7 103/ul Normal 1.2-3.8 [facility] Comment on above: Performed By: #### P T, PTT #### [facility] [address] [place] [address] Dr. Xiomy Lennon Lymphocytes/100 WBC (Bld) 17.0 % Critically low 20.5-60.0 [facility] Comment on above: Performed By: #### P T, PTT #### [facility] [address] [place] [address] Dr. Xiomy Lennon MANUAL DIFF REQ NO Normal [facility] Comment on above: Performed By: #### P T, PTT #### [facility] [address] [place] [address] Dr. Xiomy Lennon MCH (RBC) [Entitic mass] 28.6 pg Normal 26.7-34.0 [facility] Comment on above: Performed By: #### P T, PTT #### [facility] [address] [place] [address] Dr. Xiomy Lennon MCHC (RBC) [Mass/Vol] 32.4 g/dL Normal 29.9-35.2 [facility] Comment on above: Performed By: #### P T, PTT #### [facility] [address] [place] [address] Dr. Xiomy Lennon MCV (RBC) [Entitic vol] 88.3 fL Normal 81.0-99.0 [facility] Comment on above: Performed By: #### P T, PTT #### [facility] [address] [place] [address] Dr. Xiomy Lennon MONO # 0.7 103/ul Normal 0.3-0.8 [facility] Comment on above: Performed By: #### P T, PTT #### [facility] [address] [place] [address] Dr. Xiomy Lennon Monocytes/100 WBC (Bld) 7.3 % Normal 1.7-12.0 [facility] Comment on above: Performed By: #### P T, PTT #### [facility] [address] [place] [address] Dr. Xiomy Lennon NEUT # 7.2 103/ul Critically high 1.4-6.5 [facility] Comment on above: Performed By: #### P T, PTT #### [facility] [address] [place] [address] Dr. Xiomy Lennon Neutrophils/100 WBC (Bld) 73.5 % Normal 43.0-75.0 [facility] Comment on above: Performed By: #### P T, PTT #### [facility] [address] [place] [address] Dr. Xiomy Lennon Platelet mean volume (Bld) [Entitic vol] 11.5 fL Normal 9.5-13.5 [facility] Comment on above: Performed By: #### P T, PTT #### [facility] [address] [place] [address] Dr. Xiomy Lennon PLT 197 103/ul Normal 150-450 [facility] Comment on above: Performed By: #### P T, PTT #### [facility] [address] [place], [place] [address] Dr. Xiomy Lennon RBC 4.26 106/ul Normal 4.20-5.40 [facility] Comment on above: Performed By: #### P T, PTT #### [facility] [address] [place] [address] Dr. Xiomy Lennon WBC 9.7 103/ul Normal 4.0-11.0 [facility] Comment on above: Performed By: #### P T, PTT #### [facility] [address] [place] [address] Dr. Xiomy Lennon LACTATE/LACTIC ACIDon 2022 Lactate [Moles/Vol] 0.7 mmol/L Normal 0.4-2.0 [facility] Comment on above: Performed By: #### P T, PTT #### [facility] [address] [place] [address] Dr. Xiomy Lennon PROF 14(COMP METB)on 023 Albumin [Mass/Vol] 3.3 g/dL Critically low 3.4-5.0 [facility] Comment on above: Performed By: #### C MP, BNP, HSTROPN #### [facility] [address] [place] [address] Dr. Xiomy Lennon Albumin/Globulin [Mass ratio] 0.7 {ratio} Normal [facility] Comment on above: Performed By: #### C MP, BNP, HSTROPN #### [facility] [address] [place] [address] Dr. Xiomy Lennon ALP [Catalytic activity/Vol] 89 U/L Normal 46-116 [facility] Comment on above: Performed By: #### C MP, BNP, HSTROPN #### [facility] [address] [place] [address] Dr. Xiomy Lennon ALT [Catalytic activity/Vol] 34 U/L Normal 14-59 [facility] Comment on above: Performed By: #### C MP, BNP, HSTROPN #### [facility] [address] [place] [address] Dr. Xiomy Lennon Anion gap [Moles/Vol] 10.5 mmol/L Normal [facility] Comment on above: Performed By: #### C MP, BNP, HSTROPN #### [facility] [address] [place] [address] Dr. Xiomy Lennon AST [Catalytic activity/Vol] 22 U/L Normal 15-37 [facility] Comment on above: Performed By: #### C MP, BNP, HSTROPN #### [facility] [address] [address] [address] Xiomy Lennon Bilirubin [Mass/Vol] 0.3 mg/dL Normal 0.2-1.0 [facility] Comment on above: Performed By: #### C MP, BNP, HSTROPN #### [facility] [address] [place] [address] Dr. Xiomy Lennon Calcium [Mass/Vol] 9.4 mg/dL Normal 8.5-10.1 [facility] Comment on above: Performed By: #### C MP, BNP, HSTROPN #### [facility] [address] [place] [address] Dr. Xiomy Lennon Chloride [Moles/Vol] 99 mmol/L Normal 98-107 [facility] Comment on above: Performed By: #### C MP, BNP, HSTROPN #### [facility] [address] [place] [address] Dr. Xiomy eLnnon CO2 [Moles/Vol] 31.6 mmol/L Normal 21.0-32.0 [facility] Comment on above: Performed By: #### C MP, BNP, HSTROPN #### [facility] [address] [place] [address] Dr. Xiomy Lennon Creatinine [Mass/Vol] 0.86 mg/dL Normal 0.55-1.02 [facility] Comment on above: Performed By: #### C MP, BNP, HSTROPN #### [facility] [address] [place] [address] Dr. Xiomy Lennon EGFR-AF SWAZI >60 Normal >=60 [facility] Comment on above: Performed By: #### C MP, BNP, HSTROPN #### [facility] [address] [place] [address] Dr. Xiomy Lennon EGFR-NON AF SWAZI >60 Normal >=60 [facility] Comment on above: Performed By: #### C MP, BNP, HSTROPN #### [facility] [address] [address] [address] Xiomy Lennon Globulin (S) [Mass/Vol] 4.6 g/dL Normal [facility] Comment on above: Performed By: #### C MP, BNP, HSTROPN #### [facility] [address] [place] [address] Dr. Xiomy Lennon Glucose [Mass/Vol] 133 mg/dL Critically high 74-106 [facility] Comment on above: Performed By: #### C MP, BNP, HSTROPN #### [facility] [address] [place] [address] Dr. Xiomy Lennon Potassium [Moles/Vol] 4.1 mmol/L Normal 3.5-5.1 [facility] Comment on above: Performed By: #### C MP, BNP, HSTROPN #### [facility] [address] [place] [address] Dr. Xiomy Lennon Protein [Mass/Vol] 7.9 g/dL Normal 6.4-8.2 [facility] Comment on above: Performed By: #### C MP, BNP, HSTROPN #### [facility] [address] [place] [address] Dr. Xiomy Lennon Sodium [Moles/Vol] 137 mmol/L Normal 136-145 [facility] Comment on above: Performed By: #### C MP, BNP, HSTROPN #### [facility] [address] [place] [address] Dr. Xiomy Lennon Urea nitrogen [Mass/Vol] 16.0 mg/dL Normal 7.0-18.0 [facility] Comment on above: Performed By: #### C MP, BNP, HSTROPN #### [facility] [address] [place] [address] Dr. Xiomy Lennon Urea nitrogen/Creatinine [Mass ratio] 18.6 mg/mg Normal [facility] Comment on above: Performed By: #### C MP, BNP, HSTROPN #### [facility] [address] [place] [address] Dr. Xiomy Lennon PROTIMEon 02-23-2023 INR Coag (PPP) [Relative time] 0.95 {INR} Normal [facility] Comment on above: Performed By: #### P TT, PT #### [facility] [address] [place] [address] Dr. Xiomy Lennon INR GUIDELINES SEE BELOW Normal [facility] Comment on above: Result Comment: NIALL RED INR: 2.0 - 3.0 CONDITIONS NOT LISTED BELOW 2.5 - 3.5 FOR PROSTHETIC HEART VALVE REPLACEMENT 2.5 - 3.5 RECURRENT THROMBOSIS Performed By: #### P TT, PT #### [facility] [address] [place] [address] Dr. Xiomy Lennon PT Coag (PPP) [Time] 10.1 s Normal 9.0-11.6 [facility] Comment on above: Performed By: #### P TT, PT #### [facility] [address] [place] [address] Dr. Xiomy Lennon PTTon 02-23-2023 aPTT Coag (Bld) [Time] 27.2 s Normal 22.3-36.2 [facility] Comment on above: Performed By: #### P TT, PT #### [facility] [address] [place] [address] Dr. Xiomy Lennon TROPONIN, HIGH SENSITIVITYon 02-23-2023 HSTROP 6.2 pg/mL Normal 4.0-51.3 [facility] Comment on above: Result Comment: CUT- OFF POINTS HAVE BEEN ESTABLISHED BASED ON THE FOURTH UNIVERSAL DEFINITIONS OF MYOCARDIAL INFARCTION. THE UPPER REFERENCE LIMIT (URL) OF TROPONIN, DEFINED THE 99TH PERCENTILE OF cTnI DISTRIBUTION IN A REFERENCE POPULATION, HAS BEEN CONFIRMED THE DECISION THRESHOLD FOR [place] DIAGNOSIS. Performed By: #### C MP, BNP, HSTROPN #### [facility] [address] [place] [address] Dr. Xiomy Lennon XR CHEST 1 Von [...] by: JUSTINE MARES Date: 2023-02-23 19:05 Normal [facility] HEMOGLOBINon 02-01-2023 Hemoglobin (Bld) [Mass/Vol] 13.0 g/dL Normal 12.0-16.0 [facility] Comment on above: Performed By: #### H GB #### [facility] [address] [address] [address] Xiomy Lennon PULMONARY FUNCTION TESTon PULMONARY [...] ambulation/activity. 3. Clinical correlation required. Normal [facility] LUNG CANCER SCREENINGon 0 01-12-2023 [...] by: MIGUEL MEDEROS Date: 2023-01-12 14:10 Normal [facility] GLYCOHEMOGLOBIN A1Con 2022 ADA RECOMMENDATION SEE BELOW Normal [facility] Comment on above: Result Comment: ADA RECOMMENDED LIMIT 4.0 - 6.0 ADA THERAPEUTIC TARGET < 7.0 ACTION SUGGESTED > 7.0 Performed By: #### A 1C #### [facility] [address] [address] [address] Xiomy Lennon Glucose [Mass/Vol] 111 mg/dL Normal [facility] Comment on above: Performed By: #### A 1C #### [facility] [address] [address] [address] Xiomy Lennon HbA1c (Bld) [Mass fraction] 5.5 % Normal 4.5-6.2 [facility] Comment on above: Performed By: #### A 1C #### [facility] [address] [address] [address] Xiomy Lennon PROF CHEM 8 (BAS METB)on Anion gap [Moles/Vol] 12.0 mmol/L Normal [facility] Comment on above: Performed By: #### P T, PTT #### [facility] [address] [address] [address] Xiomy Lennon Calcium [Mass/Vol] 10.0 mg/dL Normal 8.5-10.1 [facility] Comment on above: Performed By: #### P T, PTT #### [facility] [address] [address] [address] Xiomy Lennon Chloride [Moles/Vol] 102 mmol/L Normal 98-107 [facility] Comment on above: Performed By: #### P T, PTT #### [facility] [address] [address] [address] Xiomy Lennon CO2 [Moles/Vol] 30.4 mmol/L Normal 21.0-32.0 [facility] Comment on above: Performed By: #### P T, PTT #### [facility] [address] [place] [address] Dr. Xiomy Lennon Creatinine [Mass/Vol] 0.79 mg/dL Normal 0.55-1.02 [facility] Comment on above: Performed By: #### P T, PTT #### [facility] [address] [address] [address] Xiomy Lennon EGFR-AF SWAZI >60 Normal >=60 [facility] Comment on above: Performed By: #### P T, PTT #### [facility] [address] [place] [address] Dr. Xiomy Lennon EGFR-NON AF SWAZI >60 Normal >=60 [facility] Comment on above: Performed By: #### P T, PTT #### [facility] [address] [address] [address] Xiomy Lennon Glucose [Mass/Vol] 147 mg/dL Critically high 74-106 [facility] Comment on above: Performed By: #### P T, PTT #### [facility] [address] [address] [address] Xiomy Lennon Potassium [Moles/Vol] 4.4 mmol/L Normal 3.5-5.1 [facility] Comment on above: Performed By: #### P T, PTT #### [facility] [address] [address] [address] Xiomy Lennon Sodium [Moles/Vol] 140 mmol/L Normal 136-145 [facility] Comment on above: Performed By: #### P T, PTT #### [facility] [address] [address] [address] Xiomy Lennon Urea nitrogen [Mass/Vol] 18.0 mg/dL Normal 7.0-18.0 [facility] Comment on above: Performed By: #### P T, PTT #### [facility] [address] [address] [address] Xiomy Lennon Urea nitrogen/Creatinine [Mass ratio] 22.8 mg/mg Normal [facility] Comment on above: Performed By: #### P T, PTT #### [facility] [address] [address] [address] Xiomy Lennon Office Visiton 12-24-2022 Follow-up visit [id number] Aliya Moore 1965 F Date Provider Department Center 12/24/[address] [facility] Family History Problem Relation Age of Onset Coronary artery disease Other Pulmonary embolism Other Deep vein thrombosis Other Family Status - Relation Status Age at Other Level of Service:35625 NC OFFICE/OUTPATIENT ESTABLISHED MOD MDM 30-39 MIN Reason for Visit and Comments: Hypertension [999191] Shortness of Breath [598774] Normal [facility] THEOPHYLLINEon 11-04-2022 THEOPHYLLINE 2.1 ug/mL Critically low 10.0-20.0 [facility] Comment on above: Performed By: #### T HERBERT #### [facility] [address] [address] [address] Xiomy Lennon GLYCOHEMOGLOBIN A1Con 2021 ADA RECOMMENDATION SEE BELOW Normal [facility] Comment on above: Result Comment: ADA RECOMMENDED LIMIT 4.0 - 6.0 ADA THERAPEUTIC TARGET < 7.0 ACTION SUGGESTED > 7.0 Performed By: #### P T, PTT #### [facility] [address] [address] [address] Xiomy Lennon Glucose [Mass/Vol] 120 mg/dL Normal [facility] Comment on above: Performed By: #### P T, PTT #### [facility] [address] [address] [address] Xiomy Lennon HbA1c (Bld) [Mass fraction] 5.8 % Normal 4.5-6.2 [facility] Comment on above: Performed By: #### P T, PTT #### [facility] [address] [address] [address] Xiomy Lennon LIPID PROFILEon 07-28-2022 CHOL-HDL RATIO NORM SEE BELOW Normal [facility] Comment on above: Result Comment: 3.3 - 4.4 LOW RISK 4.4 - 7.1 AVERAGE RISK 7.1 - 11.0 MODERATE RISK >11.0 HIGH RISK Performed By: #### P T, PTT #### [facility] [address] [address] [address] Xiomy Lennon Cholesterol [Mass/Vol] 135 mg/dL Normal <=200 [facility] Comment on above: Performed By: #### P T, PTT #### [facility] [address] [address] [address] Xiomy Lennon Cholesterol in HDL [Mass/Vol] 77 mg/dL Critically high 40-60 [facility] Comment on above: Performed By: #### P T, PTT #### [facility] [address] [address] [address] Xiomy Lennon Cholesterol in LDL [Mass/Vol] 44.6 mg/dL Normal [facility] Comment on above: Performed By: #### P T, PTT #### [facility] [address] [address] [address] Xiomy Lennon Cholesterol.total/Chol esterol in HDL [Mass ratio] 1.8 {ratio} Normal [facility] Comment on above: Performed By: #### P T, PTT #### [facility] [address] [address] [address] Xiomy Lennon HDL NORMAL > or = 60 mg/dl - LO W CARDIOVASCULAR RISK <40 mg/dl - HIGH CARDIOVASCULAR RISK Normal [facility] Comment on above: Performed By: #### P T, PTT #### [facility] [address] [address] [address] Xiomy Lennon LDL CALC NORMAL SEE BELOW Normal [facility] Comment on above: Result Comment: <100 mg/dl OPTIMAL 100 - 129 mg/dl NEAR OR ABOVE OPTIMAL 130 - 159 mg/dl BORDERLINE HIGH 160 - 189 mg/dl HIGH >190 mg/dl VERY HIGH Performed By: #### P T, PTT #### [facility] [address] [address] [address] Xiomy Lennon Triglyceride [Mass/Vol] 67 mg/dL Normal <=150 [facility] Comment on above: Performed By: #### P T, PTT #### [facility] [address] [address] [address] Xiomy Lennon VLDL CALC 13.4 mg/dL Normal [facility] Comment on above: Performed By: #### P T, PTT #### [facility] [address] [place] [address] Dr. Xiomy Lennon PROF CHEM 8 (BAS METB)on Anion gap [Moles/Vol] 8.9 mmol/L Normal [facility] Comment on above: Performed By: #### P T, PTT #### [facility] [address] [address] [address] Xiomy Lennon Calcium [Mass/Vol] 9.7 mg/dL Normal 8.5-10.1 [facility] Comment on above: Performed By: #### P T, PTT #### [facility] [address] [place] [address] Dr. Xiomy Lennon Chloride [Moles/Vol] 99 mmol/L Normal 98-107 [facility] Comment on above: Performed By: #### P T, PTT #### [facility] [address] [place] [address] Dr. Xiomy Lennon CO2 [Moles/Vol] 32.0 mmol/L Normal 21.0-32.0 [facility] Comment on above: Performed By: #### P T, PTT #### [facility] [address] [place] [address] Dr. Xiomy Lennon Creatinine [Mass/Vol] 0.78 mg/dL Normal 0.55-1.02 [facility] Comment on above: Performed By: #### P T, PTT #### [facility] [address] [address] [address] Xiomy Lennon EGFR-AF SWAZI >60 Normal >=60 [facility] Comment on above: Performed By: #### P T, PTT #### [facility] [address] [address] [address] Xiomy Lennon EGFR-NON AF SWAZI >60 Normal >=60 [facility] Comment on above: Performed By: #### P T, PTT #### [facility] [address] [address] [address] Xiomy Lennon Glucose [Mass/Vol] 111 mg/dL Critically high 74-106 [facility] Comment on above: Performed By: #### P T, PTT #### [facility] [address] [address] [address] Xiomy Lennon Potassium [Moles/Vol] 3.9 mmol/L Normal 3.5-5.1 [facility] Comment on above: Performed By: #### P T, PTT #### [facility] [address] [address] [address] Xiomy Lennon Sodium [Moles/Vol] 136 mmol/L Normal 136-145 [facility] Comment on above: Performed By: #### P T, PTT #### [facility] [address] [address] [address] Xiomy Lennon Urea nitrogen [Mass/Vol] 10.0 mg/dL Normal 7.0-18.0 [facility] Comment on above: Performed By: #### P T, PTT #### [facility] [address] [address] [address] Xiomy Lennon Urea nitrogen/Creatinine [Mass ratio] 12.8 mg/mg Normal [facility] Comment on above: Performed By: #### P T, PTT #### [facility] [address] [address] [address] Xiomy Lennon MG MAMM SCREEN 3D EMY CADon 04-30-2022 MG MAMM SCREEN 3D EMY CAD Patient: ALIYA MOORE Caroline Exam Date: 04/30/2022 : 1965 Gender:F Ordering : ENRIQUE JJ [employer] Admission #: [id number] Family : Order #: [id number] CLICK HERE TO VIEW EXAM RADIOLOGY REPORT [...] Treatments None Family Cancers None LOCATION: [facility] BREAST COMPOSITION: Almost entirely fatty. FINDINGS: [...] MD on 04/30/2022 at 10:06 Normal [facility] CBC AUTO DIFFon 03-26-2022 BASO # 0.0 103/ul Normal 0.0-0.1 [facility] Comment on above: Performed By: #### P T, PTT #### [facility] [address] [place] [address] Dr. Xiomy Lennon Basophils/100 WBC (Bld) 0.2 % Normal 0.2-2.0 [facility] Comment on above: Performed By: #### P T, PTT #### [facility] [address] [address] [address] Xiomy Lennon EO # 0.2 103/ul Normal 0.0-0.7 [facility] Comment on above: Performed By: #### P T, PTT #### [facility] [address] [place] [address] Dr. Xiomy Lennon Eosinophils/100 WBC (Bld) 1.7 % Normal 0.9-7.0 [facility] Comment on above: Performed By: #### P T, PTT #### [facility] [address] [place] [address] Dr. Xiomy Lennon Erythrocyte distribution width (RBC) [Ratio] 15.6 % Critically high 11.0-15.0 [facility] Comment on above: Performed By: #### P T, PTT #### [facility] [address] [place] [address] Dr. Xiomy Lennon Hematocrit (Bld) [Volume fraction] 43.4 % Normal 36.0-48.0 [facility] Comment on above: Performed By: #### P T, PTT #### [facility] [address] [place] [address] Dr. Xiomy Lennon Hemoglobin (Bld) [Mass/Vol] 14.0 g/dL Normal 12.0-16.0 [facility] Comment on above: Performed By: #### P T, PTT #### [facility] [address] [place] [address] Dr. Xiomy Lennon IG # 0.04 10e3/ul Critically high 0.00-0.03 [facility] Comment on above: Performed By: #### P T, PTT #### [facility] [address] [place] [address] Dr. Xiomy Lennon IG % 0.4 % Normal 0.0-0.5 [facility] Comment on above: Performed By: #### P T, PTT #### [facility] [address] [place] [address] Dr. Xiomy Lennon LYMPH # 1.2 103/ul Normal 1.2-3.8 [facility] Comment on above: Performed By: #### P T, PTT #### [facility] [address] [place] [address] Dr. Xiomy Lennon Lymphocytes/100 WBC (Bld) 11.4 % Critically low 20.5-60.0 [facility] Comment on above: Performed By: #### P T, PTT #### [facility] [address] [place] [address] Dr. Xiomy Lennon MANUAL DIFF REQ NO Normal [facility] Comment on above: Performed By: #### P T, PTT #### [facility] [address] [address] [address] Xiomy Lennon MCH (RBC) [Entitic mass] 29.7 pg Normal 26.7-34.0 [facility] Comment on above: Performed By: #### P T, PTT #### [facility] [address] [place] [address] Dr. Xiomy Lennon MCHC (RBC) [Mass/Vol] 32.3 g/dL Normal 29.9-35.2 [facility] Comment on above: Performed By: #### P T, PTT #### [facility] [address] [place] [address] Dr. Xiomy Lennon MCV (RBC) [Entitic vol] 92.1 fL Normal 81.0-99.0 [facility] Comment on above: Performed By: #### P T, PTT #### [facility] [address] [place] [address] Dr. Xiomy Lennon MONO # 0.8 103/ul Normal 0.3-0.8 [facility] Comment on above: Performed By: #### P T, PTT #### [facility] [address] [place] [address] Dr. Xiomy Lennon Monocytes/100 WBC (Bld) 7.9 % Normal 1.7-12.0 [facility] Comment on above: Performed By: #### P T, PTT #### [facility] [address] [place] [address] Dr. Xiomy Lennon NEUT # 8.3 103/ul Critically high 1.4-6.5 [facility] Comment on above: Performed By: #### P T, PTT #### [facility] [address] [place] [address] Dr. Xiomy Lennon Neutrophils/100 WBC (Bld) 78.4 % Critically high 43.0-75.0 [facility] Comment on above: Performed By: #### P T, PTT #### [facility] [address] [place] [address] Dr. Xiomy Lennon Platelet mean volume (Bld) [Entitic vol] 11.0 fL Normal 9.5-13.5 [facility] Comment on above: Performed By: #### P T, PTT #### [facility] [address] [place] [address] Dr. Xiomy Lennon PLT 196 103/ul Normal 150-450 [facility] Comment on above: Performed By: #### P T, PTT #### [facility] [address] [place] [address] Dr. Xiomy Lennon RBC 4.71 106/ul Normal 4.20-5.40 [facility] Comment on above: Performed By: #### P T, PTT #### [facility] [address] [place] [address] Dr. Xiomy Lennon WBC 10.6 103/ul Normal 4.0-11.0 [facility] Comment on above: Performed By: #### P T, PTT #### [facility] [address] [place] [address] Dr. Xiomy Lennon LIPASEon 03-26-2022 Lipase [Catalytic activity/Vol] 92.0 U/L Normal 73.0-393.0 [facility] Comment on above: Performed By: #### P T, PTT #### [facility] [address] [place] [address] Dr. Xiomy Lennon PROF 14(COMP METB)on 022 Albumin [Mass/Vol] 3.6 g/dL Normal 3.4-5.0 [facility] Comment on above: Performed By: #### P T, PTT #### [facility] [address] [place] [address] Dr. Xiomy Lennon Albumin/Globulin [Mass ratio] 0.7 {ratio} Normal [facility] Comment on above: Performed By: #### P T, PTT #### [facility] [address] [place] [address] Dr. Xiomy Lennon ALP [Catalytic activity/Vol] 78 U/L Normal 46-116 [facility] Comment on above: Performed By: #### P T, PTT #### [facility] [address] [place] [address] Dr. Xiomy Lennon ALT [Catalytic activity/Vol] 25 U/L Normal 14-59 [facility] Comment on above: Performed By: #### P T, PTT #### [facility] [address] [place] [address] Dr. Xiomy Lennon Anion gap [Moles/Vol] 9.4 mmol/L Normal [facility] Comment on above: Performed By: #### P T, PTT #### [facility] [address] [place] [address] Dr. Xiomy Lennon AST [Catalytic activity/Vol] 19 U/L Normal 15-37 [facility] Comment on above: Performed By: #### P T, PTT #### [facility] [address] [place] [address] Dr. Xiomy Lennon Bilirubin [Mass/Vol] 0.3 mg/dL Normal 0.2-1.0 [facility] Comment on above: Performed By: #### P T, PTT #### [facility] [address] [place] [address] Dr. Xiomy Lennon Calcium [Mass/Vol] 9.9 mg/dL Normal 8.5-10.1 [facility] Comment on above: Performed By: #### P T, PTT #### [facility] [address] [place] [address] Dr. Xiomy Lennon Chloride [Moles/Vol] 96 mmol/L Critically low 98-107 [facility] Comment on above: Performed By: #### P T, PTT #### [facility] [address] [place] [address] Dr. Xiomy Lennon CO2 [Moles/Vol] 34.6 mmol/L Critically high 21.0-32.0 [facility] Comment on above: Performed By: #### P T, PTT #### [facility] [address] [place] [address] Dr. Xiomy Lennon Creatinine [Mass/Vol] 0.93 mg/dL Normal 0.55-1.02 [facility] Comment on above: Performed By: #### P T, PTT #### [facility] [address] [place] [address] Dr. Xiomy Lennon EGFR-AF SWAZI >60 Normal >=60 [facility] Comment on above: Performed By: #### P T, PTT #### [facility] [address] [place] [address] Dr. Xiomy Lennon EGFR-NON AF SWAZI >60 Normal >=60 [facility] Comment on above: Performed By: #### P T, PTT #### [facility] [address] [address] [address] Xiomy Lennon Globulin (S) [Mass/Vol] 5.0 g/dL Normal [facility] Comment on above: Performed By: #### P T, PTT #### [facility] [address] [place] [address] Dr. Xiomy Lennon Glucose [Mass/Vol] 139 mg/dL Critically high 74-106 [facility] Comment on above: Performed By: #### P T, PTT #### [facility] [address] [place] [address] Dr. Xiomy Lennon Potassium [Moles/Vol] 4.0 mmol/L Normal 3.5-5.1 [facility] Comment on above: Performed By: #### P T, PTT #### [facility] [address] [place] [address] Dr. Xiomy Lennon Protein [Mass/Vol] 8.6 g/dL Critically high 6.4-8.2 [facility] Comment on above: Performed By: #### P T, PTT #### [facility] [address] [place] [address] Dr. Xiomy Lennon Sodium [Moles/Vol] 136 mmol/L Normal 136-145 [facility] Comment on above: Performed By: #### P T, PTT #### [facility] [address] [place] [address] Dr. Xiomy Lennon Urea nitrogen [Mass/Vol] 19.0 mg/dL Critically high 7.0-18.0 [facility] Comment on above: Performed By: #### P T, PTT #### [facility] [address] [place] [address] Dr. Xiomy Lennon Urea nitrogen/Creatinine [Mass ratio] 20.4 mg/mg Normal [facility] Comment on above: Performed By: #### P T, PTT #### [facility] [address] [place] [address] Dr. Xiomy Lennon PROTIMEon 03-26-2022 INR Coag (PPP) [Relative time] 0.99 {INR} Normal [facility] Comment on above: Performed By: #### P T, PTT #### [facility] [address] [place] [address] Dr. Xiomy Lennon INR GUIDELINES SEE BELOW Normal [facility] Comment on above: Result Comment: NIALL RED INR: 2.0 - 3.0 CONDITIONS NOT LISTED BELOW 2.5 - 3.5 FOR PROSTHETIC HEART VALVE REPLACEMENT 2.5 - 3.5 RECURRENT THROMBOSIS Performed By: #### P T, PTT #### [facility] [address] [place] [address] Dr. Xiomy Lennon PT Coag (PPP) [Time] 10.7 s Normal 9.0-11.6 [facility] Comment on above: Performed By: #### P T, PTT #### [facility] [address] [place] [address] Dr. Xiomy Lennon PTTon 03-26-2022 aPTT Coag (Bld) [Time] 26.9 s Normal 22.3-36.2 [facility] Comment on above: Performed By: #### P T, PTT #### [facility] [address] [place] [address] Dr. Xiomy Lennon TROPONIN, HIGH SENSITIVITYon 03-26-2022 HSTROP 8.0 pg/mL Normal 4.0-51.3 [facility] Comment on above: Result Comment: CUT- OFF POINTS HAVE BEEN ESTABLISHED BASED ON THE FOURTH UNIVERSAL DEFINITIONS OF MYOCARDIAL INFARCTION. THE UPPER REFERENCE LIMIT (URL) OF TROPONIN, DEFINED THE 99TH PERCENTILE OF cTnI DISTRIBUTION IN A REFERENCE POPULATION, HAS BEEN CONFIRMED THE DECISION THRESHOLD FOR [place] DIAGNOSIS. Performed By: #### P T, PTT #### [facility] [address] [place] [address] Dr. Xiomy Lennon US SINGLE QUAD RT [...] KENDY HERRERA Date: 2022-03-26 19:58 Normal [facility] Basic Metabolic Panelon 07-01 Calcium [Mass/Vol] 9.3 mg/dL Normal 8.2-10.2 [facility] Comment on above: Performed By: #### C DALLAS 19 [facility], COVID- VALDEMAR, SOFIANEG #### [facility] [address] Chloride [Moles/Vol] 89 mmol/L Low 95-114 [facility] Comment on above: Performed By: #### C DALL[place] 19 [facility], COVID- VALDEMAR, SOFIANEG #### [facility] [address] [id number] [facility] CO2 [Moles/Vol] 35.4 mmol/L High 22.0-30.0 [facility] Comment on above: Performed By: #### C D[place] 19 [facility], COVID-19 VAL[place], SOFIANEG #### [facility] [address] [place] [address] [place] Creatinine [Mass/Vol] 0.81 mg/dL Normal 0.44-1.03 [facility] Comment on above: Performed By: #### C DALLAS 19 [facility], COVID-19 VAL[place], SOFIANEG #### [facility] [address] [phone] [place] Creatinine Clr Calc Pharmacy 107.64 [facility] Comment on above: Performed By: #### C DALLAS 19 [facility], COVID-19 VALDE[place], SOFIANEG #### [facility] [address] [place] [address] [place] Estimated GFR ( Hilary > 60 Normal [facility] Comment on above: Result Comment: GFR estimated reference range: According to KDOQI guidelines, <60 ml/min/1.73m2 is sufficient to diagnose a patient with chronic kidney disease. Performed By: #### C OVID 19 [facility], COVID-19 [place], SOFIANEG #### [facility] [address] Estimated GFR (Non- Am > 60 Normal [facility] Comment on above: Performed By: #### C OVID 19 [facility], COVID-19 [place], SOFIANEG #### [facility] [address] Glucose [Mass/Vol] 94 mg/dL Normal 70-100 [facility] Comment on above: Result Comment: [place] Glucose Reference Range is dependent on time and content of last meal. Glucose of more than 200 mg/dL in a nonstressed, ambulatory subject supports the diagnosis of Diabetes Mellitus. ADA recommended reference range Performed By: #### C OVID 19 [facility], COVID-19 VAL[place], SOFIANEG #### [facility] [address] Potassium Normal 3.5-5.1 [facility] Comment on above: Result Comment: Spec imen hemolyzed, redraw requested Performed By: #### C OVID 19 [facility], COVID-19 VAL[place], SOFIANEG #### [facility] [address] [phone] [place] Sodium [Moles/Vol] 135 mmol/L Low 136-146 [facility] Comment on above: Performed By: #### C OVID 19 [facility], COVID-19 VALDEMAR, SOFIANEG #### [facility] [address] [phone] [place] Urea nitrogen [Mass/Vol] 19 mg/dL Normal 9-23 [facility] Comment on above: Performed By: #### C OVID 19 [facility], COVID-19 VAL[place], SOFIANEG #### [facility] [address] [place] [address] Complete Blood Count Auto Di ffon 07-14-2021 Basophils (Bld) [#/Vol] 0.0 10*3/uL Normal 0.0-0.2 [facility] Comment on above: Result Comment: PERF ORMED BY: [place] [address] PATHOLOGIST SHOE DESIGNER OTILIA BAIRD M.D. Performed By: #### C BC, LACTIC, HS TROP, BMP #### [address] Basophils/100 WBC (Bld) 0.5 % Normal . [facility] Comment on above: Performed By: #### C BC, LACTIC, HS TROP, BMP #### [address] Eosinophils (Bld) [#/Vol] 0.1 10*3/uL Normal 0.0-0.45 [facility] Comment on above: Performed By: #### C BC, LACTIC, HS TROP, BMP #### [address] Eosinophils/100 WBC (Bld) 0.9 % Normal . [facility] Comment on above: Performed By: #### C BC, LACTIC, HS TROP, BMP #### [address] Erythrocyte distribution width (RBC) [Ratio] 18.2 % High 11.9-15.3 [facility] Comment on above: Performed By: #### C BC, LACTIC, HS TROP, BMP #### [facility] [address] [place] [address] Hematocrit (Bld) [Volume fraction] 41.6 % Normal 34.0-46.4 [facility] Comment on above: Performed By: #### C BC, LACTIC, HS TROP, BMP #### [facility] [address] [place] [address] [place] Hemoglobin (Bld) [Mass/Vol] 13.8 g/dL Normal 11.8-15.4 [facility] Comment on above: Performed By: #### C BC, LACTIC, HS TROP, BMP #### [address] Lymphocytes (Bld) [#/Vol] 1.5 10*3/uL Normal 1.00-4.8 [facility] Comment on above: Performed By: #### C BC, LACTIC, HS TROP, BMP #### [address] Lymphocytes/100 WBC (Bld) 20.5 % Normal . [facility] Comment on above: Performed By: #### C BC, LACTIC, HS TROP, BMP #### [address] MCH (RBC) [Entitic mass] 29.0 pg Normal 24.7-34.3 [facility] Comment on above: Performed By: #### C BC, LACTIC, HS TROP, BMP #### [address] MCV (RBC) [Entitic vol] 87.8 fL Normal 80-100 [facility] Comment on above: Performed By: #### C BC, LACTIC, HS TROP, BMP #### [address] Mean Corpuscular HGB Conc 33.0 g/dL Normal 32.0-35.0 [facility] Comment on above: Performed By: #### C BC, LACTIC, HS TROP, BMP #### [address] Monocytes (Bld) [#/Vol] 0.8 10*3/uL Normal 0.0-0.8 [facility] Comment on above: Performed By: #### C BC, LACTIC, HS TROP, BMP #### [address] Monocytes/100 WBC (Bld) 11.4 % Normal . [facility] Comment on above: Performed By: #### C BC, LACTIC, HS TROP, BMP #### [address] [place] [address] [place] Neutrophils (Bld) [#/Vol] 4.8 10*3/uL Normal 1.8-7.7 [facility] Comment on above: Performed By: #### C BC, LACTIC, HS TROP, BMP #### [address] Neutrophils/100 WBC (Bld) 66.7 % Normal . [facility] Comment on above: Performed By: #### C BC, LACTIC, HS TROP, BMP #### [place] [address] [place] Nucleated RBC/100 WBC (Bld) [Ratio] 0.1 % Normal 0-0.5 [facility] Comment on above: Performed By: #### C BC, LACTIC, HS TROP, BMP #### [address] Platelet mean volume (Bld) [Entitic vol] 9.5 fL Normal 6.3-10.7 [facility] Comment on above: Performed By: #### C BC, LACTIC, HS TROP, BMP #### [place] [address] [place] Platelets (Bld) [#/Vol] 153 10*3/uL Normal 150-450 [facility] Comment on above: Performed By: #### C BC, LACTIC, HS TROP, BMP #### [place] [address] [place] RBC (Bld) [#/Vol] 4.74 10*6/uL Normal 3.60-5.00 [facility] Comment on above: Performed By: #### C BC, LACTIC, HS TROP, BMP #### [place] [address] [place] WBC (Bld) [#/Vol] 7.1 10*3/uL Normal 4.5-11.0 [facility] Comment on above: Performed By: #### C BC, LACTIC, HS TROP, BMP #### [address] Glucose Poct Glucometerson 0 9-14-2021 Commemt1 Glu2: Cleaned Meter Normal [facility] Comment on above: Result Comment: PERF ORMED BY: [facility] [address] [place] [address] PATHOLOGIST SHOE DESIGNER OTILIA BAIRD M.D. Performed By: #### C OVID 19 [facility], COVID-19 [place], SOFIANEG #### [facility] [address] [phone] [place] Glucose [Mass/Vol] 130 mg/dL Normal [facility] Comment on above: Result Comment: [place] om Glucose Reference Range is dependent on time and content of last meal. Glucose of more than 200 mg/dL in a nonstressed, ambulatory subject supports the diagnosis of Diabetes Mellitus. Performed By: #### C OVID 19 [facility], COVID-19 VAL[place], SOFIANEG #### [facility] [address] [place] [address] [facility] Commemt1 Glu2: Cleaned Meter Normal [facility] Comment on above: Result Comment: PERF ORMED BY: [facility] [address] [place] [address] PATHOLOGIST SHOE DESIGNER OTILIA BAIRD M.D. Performed By: #### C BC, LACTIC, HS TROP, BMP #### [address] [phone] [place] Glucose [Mass/Vol] 102 mg/dL Normal [facility] Comment on above: Result Comment: [place] om Glucose Reference Range is dependent on time and content of last meal. Glucose of more than 200 mg/dL in a nonstressed, ambulatory subject supports the diagnosis of Diabetes Mellitus. Performed By: #### C BC, LACTIC, HS TROP, BMP #### [facility] [address] [place] [address] [place] Commemt1 Glu2: Cleaned Meter Normal [facility] Comment on above: Result Comment: PERF ORMED BY: [facility] [address] [place] [address] PATHOLOGIST SHOE DESIGNER OTILIA BAIRD M.D. Performed By: #### C BC, LACTIC, HS TROP, BMP #### [facility] [address] Glucose [Mass/Vol] 130 mg/dL Normal [facility] Comment on above: Result Comment: [facility] Glucose Reference Range is dependent on time and content of last meal. Glucose of more than 200 mg/dL in a nonstressed, ambulatory subject supports the diagnosis of Diabetes Mellitus. Performed By: #### C BC, LACTIC, HS TROP, BMP #### [address] Magnesiumon 07-14-2021 Magnesium Normal 1.6-2.6 [facility] Comment on above: Result Comment: Spec imen hemolyzed, redraw requested PERFORMED BY: [place] [address] PATHOLOGIST SHOE DESIGNER OTILIA BAIRD M.D. Performed By: #### C OVID 19 [facility], COVID-19 VALDEMAR, SOFIANEG #### [address] Redraw Magnesiumon 1 Magnesium [Mass/Vol] 1.9 mg/dL Normal 1.6-2.6 [facility] Comment on above: Order Comment: Speci men hemolyzed, redraw requested Result Comment: PERF ORMED BY: [place] [address] PATHOLOGIST SHOE DESIGNER OTILIA BAIRD M.D. Performed By: #### C OVID 19 [facility], COVID-19 VALDE[place], SOFIANEG #### [address] Redraw Potassiumon 1 Potassium [Moles/Vol] 3.7 mmol/L Normal 3.5-5.1 [facility] Comment on above: Order Comment: Speci men hemolyzed, redraw requested Performed By: #### C OVID 19 [facility], COVID-19 VALDE[place], SOFIANEG #### [address] Basic Metabolic Panelon 09- Calcium [Mass/Vol] 9.3 mg/dL Normal 8.2-10.2 [facility] Comment on above: Performed By: #### C BC, LACTIC, HS TROP, BMP #### [facility] [address] Chloride [Moles/Vol] 92 mmol/L Low 95-114 [facility] Comment on above: Performed By: #### C BC, LACTIC, HS TROP, BMP #### [facility] [address] CO2 [Moles/Vol] 37.7 mmol/L High 22.0-30.0 [facility] Comment on above: Performed By: #### C BC, LACTIC, HS TROP, BMP #### [address] Creatinine [Mass/Vol] 0.80 mg/dL Normal 0.44-1.03 [facility] Comment on above: Performed By: #### C BC, LACTIC, HS TROP, BMP #### [place] [address] [place] Creatinine Clr Calc Pharmacy 105.32 [facility] Comment on above: Result Comment: PERF ORMED BY: [place] [address] PATHOLOGIST SHOE DESIGNER OTILIA BAIRD M.D. Performed By: #### C BC, LACTIC, HS TROP, BMP #### [address] Estimated GFR ( Hilary > 60 [facility] Comment on above: Result Comment: GFR estimated reference range: According to KDOQI guidelines, <60 ml/min/1.73m2 is sufficient to diagnose a patient with chronic kidney disease. Performed By: #### C BC, LACTIC, HS TROP, BMP #### [address] Estimated GFR (Non- Am > 60 [facility] Comment on above: Performed By: #### C BC, LACTIC, HS TROP, BMP #### [address] Glucose [Mass/Vol] 94 mg/dL Normal 70-100 [facility] Comment on above: Result Comment: [place] om Glucose Reference Range is dependent on time and content of last meal. Glucose of more than 200 mg/dL in a nonstressed, ambulatory subject supports the diagnosis of Diabetes Mellitus. ADA recommended reference range Performed By: #### C BC, LACTIC, HS TROP, BMP #### [address] Potassium [Moles/Vol] 3.6 mmol/L Normal 3.5-5.1 [facility] Comment on above: Performed By: #### C BC, LACTIC, HS TROP, BMP #### [address] Sodium [Moles/Vol] 139 mmol/L Normal 136-146 [facility] Comment on above: Performed By: #### C BC, LACTIC, HS TROP, BMP #### [address] Urea nitrogen [Mass/Vol] 18 mg/dL Normal 9-23 [facility] Comment on above: Performed By: #### C BC, LACTIC, HS TROP, BMP #### [address] Glucose Poct Glucometerson 0 07-13-2021 Commemt1 Glu2: Cleaned Meter Normal [facility] Comment on above: Result Comment: PERF ORMED BY: [place] [address] PATHOLOGIST SHOE DESIGNER OTILIA BAIRD M.D. Performed By: #### C BC, LACTIC, HS TROP, BMP #### [place] [address] [place] Glucose [Mass/Vol] 180 mg/dL Normal [facility] Comment on above: Result Comment: [place] om Glucose Reference Range is dependent on time and content of last meal. Glucose of more than 200 mg/dL in a nonstressed, ambulatory subject supports the diagnosis of Diabetes Mellitus. Performed By: #### C BC, LACTIC, HS TROP, BMP #### [address] Commemt1 Glu2: Cleaned Meter Normal [facility] Comment on above: Result Comment: PERF ORMED BY: [place] [address] PATHOLOGIST SHOE DESIGNER OTILIA BAIRD M.D. Performed By: #### C BC, LACTIC, HS TROP, BMP #### [address] Glucose [Mass/Vol] 128 mg/dL Normal [facility] Comment on above: Result Comment: [place] om Glucose Reference Range is dependent on time and content of last meal. Glucose of more than 200 mg/dL in a nonstressed, ambulatory subject supports the diagnosis of Diabetes Mellitus. Performed By: #### C BC, LACTIC, HS TROP, BMP #### [address] Glucose [Mass/Vol] 95 mg/dL Normal [facility] Comment on above: Result Comment: [place] om Glucose Reference Range is dependent on time and content of last meal. Glucose of more than 200 mg/dL in a nonstressed, ambulatory subject supports the diagnosis of Diabetes Mellitus. PERFORMED BY: [place] [address] PATHOLOGIST SHOE DESIGNER OTILIA BAIRD M.D. Performed By: #### C BC, LACTIC, HS TROP, BMP #### [address] Basic Metabolic Panelon 07-01 Calcium [Mass/Vol] 9.3 mg/dL Normal 8.2-10.2 [facility] Comment on above: Performed By: #### C BC, LACTIC, HS TROP, BMP #### [address] Chloride [Moles/Vol] 86 mmol/L Low 95-114 [facility] Comment on above: Performed By: #### C BC, LACTIC, HS TROP, BMP #### [address] [address] [place] CO2 [Moles/Vol] 43.4 mmol/L High 22.0-30.0 [facility] Comment on above: Performed By: #### C BC, LACTIC, HS TROP, BMP #### [facility] [address] Creatinine [Mass/Vol] 0.86 mg/dL Normal 0.44-1.03 [facility] Comment on above: Performed By: #### C BC, LACTIC, HS TROP, BMP #### [place] [address] [place] Creatinine Clr Calc Pharmacy 103.59 [facility] Comment on above: Result Comment: PERF ORMED BY: [place] [address] PATHOLOGIST SHOE DESIGNER OTILIA BAIRD M.D. Performed By: #### C BC, LACTIC, HS TROP, BMP #### [address] Estimated GFR ( Hilary > 60 [facility] Comment on above: Result Comment: GFR estimated reference range: According to KDOQI guidelines, <60 ml/min/1.73m2 is sufficient to diagnose a patient with chronic kidney disease. Performed By: #### C BC, LACTIC, HS TROP, BMP #### [address] Estimated GFR (Non- Am > 60 [facility] Comment on above: Performed By: #### C BC, LACTIC, HS TROP, BMP #### [place] [address] [place] Glucose [Mass/Vol] 94 mg/dL Normal 70-100 [facility] Comment on above: Result Comment: [place] Glucose Reference Range is dependent on time and content of last meal. Glucose of more than 200 mg/dL in a nonstressed, ambulatory subject supports the diagnosis of Diabetes Mellitus. ADA recommended reference range Performed By: #### C BC, LACTIC, HS TROP, BMP #### [place] [address] [place] Potassium [Moles/Vol] 3.6 mmol/L Normal 3.5-5.1 [facility] Comment on above: Performed By: #### C BC, LACTIC, HS TROP, BMP #### [facility] [address] Sodium [Moles/Vol] 139 mmol/L Normal 136-146 [facility] Comment on above: Performed By: #### C BC, LACTIC, HS TROP, BMP #### [facility] [address] Urea nitrogen [Mass/Vol] 18 mg/dL Normal - [facility] Comment on above: Performed By: #### C BC, LACTIC, HS TROP, BMP #### [facility] [address] Glucose Poct Glucometerson 0 07-12-2021 Glucose [Mass/Vol] 138 mg/dL Normal [facility] Comment on above: Result Comment: [place] om Glucose Reference Range is dependent on time and content of last meal. Glucose of more than 200 mg/dL in a nonstressed, ambulatory subject supports the diagnosis of Diabetes Mellitus. PERFORMED BY: [place] [address] PATHOLOGIST SHOE DESIGNER OTILIA BAIRD M.D. Performed By: #### C BC, LACTIC, HS TROP, BMP #### [address] Commemt1 Glu2: Cleaned Meter Normal [facility] Comment on above: Result Comment: PERF ORMED BY: [place] [address] PATHOLOGIST SHOE DESIGNER OTILIA BAIRD M.D. Performed By: #### C BC, LACTIC, HS TROP, BMP #### [facility] [address] Glucose [Mass/Vol] 255 mg/dL Normal [facility] Comment on above: Result Comment: [place] om Glucose Reference Range is dependent on time and content of last meal. Glucose of more than 200 mg/dL in a nonstressed, ambulatory subject supports the diagnosis of Diabetes Mellitus. Performed By: #### C BC, LACTIC, HS TROP, BMP #### [address] Commemt1 Glu2: Cleaned Meter [facility] Comment on above: Result Comment: PERF ORMED BY: [place] [address] PATHOLOGIST SHOE DESIGNER OTILIA BAIRD M.D. Performed By: #### C BC, LACTIC, HS TROP, BMP #### [address] Glucose [Mass/Vol] 133 mg/dL Normal [facility] Comment on above: Result Comment: [place] om Glucose Reference Range is dependent on time and content of last meal. Glucose of more than 200 mg/dL in a nonstressed, ambulatory subject supports the diagnosis of Diabetes Mellitus. Performed By: #### C BC, LACTIC, HS TROP, BMP #### [address] Commemt1 Glu2: Cleaned Meter [facility] Comment on above: Result Comment: PERF ORMED BY: [place] [address] PATHOLOGIST SHOE DESIGNER OTILIA BAIRD M.D. Performed By: #### C BC, LACTIC, HS TROP, BMP #### [address] Glucose [Mass/Vol] 100 mg/dL Normal [facility] Comment on above: Result Comment: [place] om Glucose Reference Range is dependent on time and content of last meal. Glucose of more than 200 mg/dL in a nonstressed, ambulatory subject supports the diagnosis of Diabetes Mellitus. Performed By: #### C BC, LACTIC, HS TROP, BMP #### [address] Basic Metabolic Panelon 07-01 Calcium [Mass/Vol] 9.5 mg/dL Normal 8.2-10.2 [facility] Comment on above: Performed By: #### C BC, LACTIC, HS TROP, BMP #### [facility] [address] [place] [address] [place] Chloride [Moles/Vol] 85 mmol/L Low 95-114 [facility] Comment on above: Performed By: #### C BC, LACTIC, HS TROP, BMP #### [facility] [address] [place] [address] [place] CO2 [Moles/Vol] 39.6 mmol/L High 22.0-30.0 [facility] Comment on above: Performed By: #### C BC, LACTIC, HS TROP, BMP #### [facility] [address] Creatinine [Mass/Vol] 0.99 mg/dL Normal 0.44-1.03 [facility] Comment on above: Performed By: #### C BC, LACTIC, HS TROP, BMP #### [facility] [address] [place] [address] [place] Creatinine Clr Calc Pharmacy 89.99 [facility] Comment on above: Result Comment: PERF ORMED BY: [place] [address] PATHOLOGIST SHOE DESIGNER OTILIA BAIRD M.D. Performed By: #### C BC, LACTIC, HS TROP, BMP #### [address] Estimated GFR ( Hilary > 60 [facility] Comment on above: Result Comment: GFR estimated reference range: According to KDOQI guidelines, <60 ml/min/1.73m2 is sufficient to diagnose a patient with chronic kidney disease. Performed By: #### C BC, LACTIC, HS TROP, BMP #### [facility] [address] [place] [address] [place] Estimated GFR (Non- Am 58 [facility] Comment on above: Performed By: #### C BC, LACTIC, HS TROP, BMP #### [facility] [address] [place] [address] [place] Glucose [Mass/Vol] 189 mg/dL High 70-100 [facility] Comment on above: Result Comment: [place] Glucose Reference Range is dependent on time and content of last meal. Glucose of more than 200 mg/dL in a nonstressed, ambulatory subject supports the diagnosis of Diabetes Mellitus. ADA recommended reference range Performed By: #### C BC, LACTIC, HS TROP, BMP #### [facility] [address] Potassium [Moles/Vol] 4.3 mmol/L Normal 3.5-5.1 [facility] Comment on above: Performed By: #### C BC, LACTIC, HS TROP, BMP #### [facility] [address] Sodium [Moles/Vol] 135 mmol/L Low 136-146 [facility] Comment on above: Performed By: #### C BC, LACTIC, HS TROP, BMP #### [facility] [address] Urea nitrogen [Mass/Vol] 21 mg/dL Normal 9-23 [facility] Comment on above: Performed By: #### C BC, LACTIC, HS TROP, BMP #### [address] Glucose Poct Glucometerson 0 07-11-2021 Commemt1 Glu2: Cleaned Meter [facility] Comment on above: Result Comment: PERF ORMED BY: [place] [address] PATHOLOGIST SHOE DESIGNER OTILIA BAIRD M.D. Performed By: #### C BC, LACTIC, HS TROP, BMP #### [address] Glucose [Mass/Vol] 202 mg/dL Normal [facility] Comment on above: Result Comment: [facility] Glucose Reference Range is dependent on time and content of last meal. Glucose of more than 200 mg/dL in a nonstressed, ambulatory subject supports the diagnosis of Diabetes Mellitus. Performed By: #### C BC, LACTIC, HS TROP, BMP #### [address] Commemt1 Glu2: Cleaned Meter [facility] Comment on above: Result Comment: PERF ORMED BY: [facility] [address] [place] [address] PATHOLOGIST SHOE DESIGNER OTILIA BAIRD M.D. Performed By: #### C BC, LACTIC, HS TROP, BMP #### [place] [address] [place] Glucose [Mass/Vol] 249 mg/dL Normal [facility] Comment on above: Result Comment: [place] om Glucose Reference Range is dependent on time and content of last meal. Glucose of more than 200 mg/dL in a nonstressed, ambulatory subject supports the diagnosis of Diabetes Mellitus. Performed By: #### C BC, LACTIC, HS TROP, BMP #### [address] Commemt1 Glu2: Cleaned Meter Normal [facility] Comment on above: Result Comment: PERF ORMED BY: [place] [address] PATHOLOGIST SHOE DESIGNER OTILIA BAIRD M.D. Performed By: #### C BC, LACTIC, HS TROP, BMP #### [place] [address] [place] Glucose [Mass/Vol] 141 mg/dL Normal [facility] Comment on above: Result Comment: [place] om Glucose Reference Range is dependent on time and content of last meal. Glucose of more than 200 mg/dL in a nonstressed, ambulatory subject supports the diagnosis of Diabetes Mellitus. Performed By: #### C BC, LACTIC, HS TROP, BMP #### [place] [address] [place] Commemt1 Glu2: Cleaned Meter [facility] Comment on above: Result Comment: PERF ORMED BY: [place] [address] PATHOLOGIST SHOE DESIGNER OTILIA BAIRD M.D. Performed By: #### C BC, LACTIC, HS TROP, BMP #### [place] [address] [place] Glucose [Mass/Vol] 103 mg/dL Normal [facility] Comment on above: Result Comment: [place] Glucose Reference Range is dependent on time and content of last meal. Glucose of more than 200 mg/dL in a nonstressed, ambulatory subject supports the diagnosis of Diabetes Mellitus. Performed By: #### C BC, LACTIC, HS TROP, BMP #### [facility] [address] Arterial Blood Gason 021 ABG Base Excess 17.0 mmol/L High -3.0-3.0 [facility] Comment on above: Performed By: #### C BC, LACTIC, HS TROP, BMP #### [facility] [address] ABG Frac Inspired O2 60 % Normal [facility] Comment on above: Performed By: #### C BC, LACTIC, HS TROP, BMP #### [address] ABG Oxygen Content 7.6 mmol/L Normal 6.6-9.7 [facility] Comment on above: Performed By: #### C BC, LACTIC, HS TROP, BMP #### [facility] [address] [place] [address] ABG Oxygen Saturation 94.3 % Low 95.0-100.0 [facility] Comment on above: Performed By: #### C BC, LACTIC, HS TROP, BMP #### [facility] [address] [place] [address] ABG PCO2 90.7 mm[Hg] Off scale high 35.0-45.0 [facility] Comment on above: Performed By: #### C BC, LACTIC, HS TROP, BMP #### [facility] [address] [place] [address] ABG PH 7.34 Low 7.35-7.45 [facility] Comment on above: Performed By: #### C BC, LACTIC, HS TROP, BMP #### [facility] [address] [place] [address] ABG PO2 77.7 mm[Hg] Low 80.0-100.0 [facility] Comment on above: Performed By: #### C BC, LACTIC, HS TROP, BMP #### [facility] [address] [place] [address] CO2 [Moles/Vol] 50.1 mmol/L High 23.0-27.0 [facility] Comment on above: Performed By: #### C BC, LACTIC, HS TROP, BMP #### [address] HCO3 (Bld) [Moles/Vol] 47.3 mmol/L High 23.0-29.0 [facility] Comment on above: Performed By: #### C BC, LACTIC, HS TROP, BMP #### [address] Respiratory Critical [facility] Comment on above: Result Comment: Crit ical Value called on: 07/10/2021 at 05:01 PERFORMED BY: [place] [address] PATHOLOGIST SHOE DESIGNER OTILIA BAIRD M.D. Performed By: #### C BC, LACTIC, HS TROP, BMP #### [address] Set Respiratory Rate 12 Normal [facility] Comment on above: Performed By: #### C BC, LACTIC, HS TROP, BMP #### [address] VBG Draw Site Right Radial Normal [facility] Comment on above: Performed By: #### C BC, LACTIC, HS TROP, BMP #### [address] Basic Metabolic Panelon 07-01 Calcium [Mass/Vol] 9.4 mg/dL Normal 8.2-10.2 [facility] Comment on above: Performed By: #### C BC, LACTIC, HS TROP, BMP #### [address] Chloride [Moles/Vol] 88 mmol/L Low 95-114 [facility] Comment on above: Performed By: #### C BC, LACTIC, HS TROP, BMP #### [address] CO2 [Moles/Vol] 41.2 mmol/L High 22.0-30.0 [facility] Comment on above: Performed By: #### C BC, LACTIC, HS TROP, BMP #### [facility] [address] Creatinine [Mass/Vol] 0.74 mg/dL Normal 0.44-1.03 [facility] Comment on above: Performed By: #### C BC, LACTIC, HS TROP, BMP #### [place] [address] [place] Creatinine Clr Calc Pharmacy 122.16 [facility] Comment on above: Result Comment: PERF ORMED BY: [place] [address] PATHOLOGIST SHOE DESIGNER OTILIA BAIRD M.D. Performed By: #### C BC, LACTIC, HS TROP, BMP #### [address] Estimated GFR ( Hilary > 60 [facility] Comment on above: Result Comment: GFR estimated reference range: According to KDOQI guidelines, <60 ml/min/1.73m2 is sufficient to diagnose a patient with chronic kidney disease. Performed By: #### C BC, LACTIC, HS TROP, BMP #### [address] Estimated GFR (Non- Am > 60 [facility] Comment on above: Performed By: #### C BC, LACTIC, HS TROP, BMP #### [address] Glucose [Mass/Vol] 94 mg/dL Normal 70-100 [facility] Comment on above: Result Comment: [place] Glucose Reference Range is dependent on time and content of last meal. Glucose of more than 200 mg/dL in a nonstressed, ambulatory subject supports the diagnosis of Diabetes Mellitus. ADA recommended reference range Performed By: #### C BC, LACTIC, HS TROP, BMP #### [address] [place] [address] [place] Potassium [Moles/Vol] 3.9 mmol/L Normal 3.5-5.1 [facility] Comment on above: Performed By: #### C BC, LACTIC, HS TROP, BMP #### [facility] [address] [place] [id number] [place] Sodium [Moles/Vol] 138 mmol/L Normal 136-146 [facility] Comment on above: Performed By: #### C BC, LACTIC, HS TROP, BMP #### [facility] [address] Urea nitrogen [Mass/Vol] 15 mg/dL Normal 9-23 [facility] Comment on above: Performed By: #### C BC, LACTIC, HS TROP, BMP #### [facility] [address] ECH echo transthoracicon ECH echo transthoracic [facility] Main [place] [address] [place] [address] Echocardiogram Signed Patient: Aliya Moore MR#: [id number] : 1965 Acct:[id number] Age/Sex: 55 / F ADM Date: 07/09/21 Loc: Room: [address] [place] [id number] Type: ADM IN Attending Dr: Colby Camara [...] MD 07/10/21 1037 Signed By: 07/10/21 1324 [facility] Glucose Poct Glucometerson 0 07-10-2021 Commemt1 Glu2: Cleaned Meter [facility] Comment on above: Result Comment: PERF ORMED BY: [facility] [address] [place] [address] PATHOLOGIST SHOE DESIGNER OTILIA BAIRD M.D. Performed By: #### C BC, LACTIC, HS TROP, BMP #### [facility] [address] Glucose [Mass/Vol] 124 mg/dL Normal [facility] Comment on above: Result Comment: [place] om Glucose Reference Range is dependent on time and content of last meal. Glucose of more than 200 mg/dL in a nonstressed, ambulatory subject supports the diagnosis of Diabetes Mellitus. Performed By: #### C BC, LACTIC, HS TROP, BMP #### [address] Commemt1 Glu2: Cleaned Meter [facility] Comment on above: Result Comment: PERF ORMED BY: [place] [address] PATHOLOGIST SHOE DESIGNER OTILIA BAIRD M.D. Performed By: #### C BC, LACTIC, HS TROP, BMP #### [place] [address] [place] Glucose [Mass/Vol] 293 mg/dL Normal [facility] Comment on above: Result Comment: [place] om Glucose Reference Range is dependent on time and content of last meal. Glucose of more than 200 mg/dL in a nonstressed, ambulatory subject supports the diagnosis of Diabetes Mellitus. Performed By: #### C BC, LACTIC, HS TROP, BMP #### [facility] [address] [place] [address] Commemt1 Glu2: Cleaned Meter [facility] Comment on above: Result Comment: PERF ORMED BY: [facility] [address] [place] [address] PATHOLOGIST SHOE DESIGNER OTILIA BAIRD M.D. Performed By: #### C BC, LACTIC, HS TROP, BMP #### [facility] [address] [place] [id number] [place] Glucose [Mass/Vol] 140 mg/dL Normal [facility] Comment on above: Result Comment: [place] Glucose Reference Range is dependent on time and content of last meal. Glucose of more than 200 mg/dL in a nonstressed, ambulatory subject supports the diagnosis of Diabetes Mellitus. Performed By: #### C BC, LACTIC, HS TROP, BMP #### [address] Glucose [Mass/Vol] 105 mg/dL Normal [facility] Comment on above: Result Comment: [facility] Glucose Reference Range is dependent on time and content of last meal. Glucose of more than 200 mg/dL in a nonstressed, ambulatory subject supports the diagnosis of Diabetes Mellitus. PERFORMED BY: [place] [address] PATHOLOGIST SHOE DESIGNER OTILIA BAIRD M.D. Performed By: #### C BC, LACTIC, HS TROP, BMP #### [address] B-Type Natriuretic Peptideon 07-09-2021 Natriuretic peptide B (Bld) [Mass/Vol] 121.0 pg/mL High 5-100 [facility] Comment on above: Result Comment: PERF ORMED BY: [place] [address] PATHOLOGIST SHOE DESIGNER OTILIA BAIRD M.D. Performed By: #### C BC, LACTIC, HS TROP, BMP #### [address] Basic Metabolic Panelon Calcium [Mass/Vol] 9.0 mg/dL Normal 8.2-10.2 [facility] Comment on above: Performed By: #### C BC, LACTIC, HS TROP, BMP #### [facility] [address] [place] [id number] [place] Chloride [Moles/Vol] 92 mmol/L Low 95-114 [facility] Comment on above: Performed By: #### C BC, LACTIC, HS TROP, BMP #### [facility] [address] [place] [address] [place] CO2 [Moles/Vol] 36.9 mmol/L High 22.0-30.0 [facility] Comment on above: Performed By: #### C BC, LACTIC, HS TROP, BMP #### [facility] [address] [place] [address] [place] Creatinine [Mass/Vol] 0.66 mg/dL Normal 0.44-1.03 [facility] Comment on above: Performed By: #### C BC, LACTIC, HS TROP, BMP #### [facility] [address] [place] [address] [place] Creatinine Clr Calc Pharmacy 137.69 [facility] Comment on above: Result Comment: PERF ORMED BY: [facility] [address] [place] [address] PATHOLOGIST SHOE DESIGNER OTILIA BAIRD M.D. Performed By: #### C BC, LACTIC, HS TROP, BMP #### [facility] [address] Estimated GFR ( Hilary > 60 [facility] Comment on above: Result Comment: [place] estimated reference range: According to KDOQI guidelines, <60 ml/min/1.73m2 is sufficient to diagnose a patient with chronic kidney disease. Performed By: #### C BC, LACTIC, HS TROP, BMP #### [facility] [address] Estimated GFR (Non- Am > 60 [facility] Comment on above: Performed By: #### C BC, LACTIC, HS TROP, BMP #### [facility] [address] Glucose [Mass/Vol] 119 mg/dL High 70-100 [facility] Comment on above: Result Comment: [place] Glucose Reference Range is dependent on time and content of last meal. Glucose of more than 200 mg/dL in a nonstressed, ambulatory subject supports the diagnosis of Diabetes Mellitus. ADA recommended reference range Performed By: #### C BC, LACTIC, HS TROP, BMP #### [facility] [address] Potassium [Moles/Vol] 4.5 mmol/L Normal 3.5-5.1 [facility] Comment on above: Performed By: #### C BC, LACTIC, HS TROP, BMP #### [facility] [address] [place] [address] [place] Sodium [Moles/Vol] 137 mmol/L Normal 136-146 [facility] Comment on above: Performed By: #### C BC, LACTIC, HS TROP, BMP #### [facility] [address] [place] [id number] [place] Urea nitrogen [Mass/Vol] 9 mg/dL Normal 9-23 [facility] Comment on above: Performed By: #### C BC, LACTIC, HS TROP, BMP #### [facility] [address] COVID-19 Antigenon 1 COVID-19 [facility] [...] its performance [place] Disclaimer characteristic determined by [employer] and Val[place]ar Disclaimer validated at [facility]. This Valdemar Disclaimer test has not been [...] is terminated or revoked sooner. PERFORMED BY: [place] [address] PATHOLOGIST SHOE DESIGNER OTILIA BAIRD M.D. 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 This test has not been FDA cleared [...] is terminated or revoked sooner. PERFORMED BY: [place] [address] PATHOLOGIST SHOE DESIGNER OTILIA BAIRD M.D. Performed By: #### C OVID 19 [facility], COVID-19 VALDEMAR, SOFIANEG #### [address] Complete Blood Count Auto Di ffon 07-09-2021 Basophils (Bld) [#/Vol] 0.0 10*3/uL Normal 0.0-0.2 [facility] Comment on above: Result Comment: PERF ORMED BY: [facility] [address] [place] [address] PATHOLOGIST SHOE DESIGNER OTILIA BAIRD M.D. Performed By: #### C BC, LACTIC, HS TROP, BMP #### [address] Basophils/100 WBC (Bld) 0.4 % Normal . [facility] Comment on above: Performed By: #### C BC, LACTIC, HS TROP, BMP #### [address] Eosinophils (Bld) [#/Vol] 0.2 10*3/uL Normal 0.0-0.45 [facility] Comment on above: Performed By: #### C BC, LACTIC, HS TROP, BMP #### [address] Eosinophils/100 WBC (Bld) 2.5 % Normal . [facility] Comment on above: Performed By: #### C BC, LACTIC, HS TROP, BMP #### [address] Erythrocyte distribution width (RBC) [Ratio] 18.9 % High 11.9-15.3 [facility] Comment on above: Performed By: #### C BC, LACTIC, HS TROP, BMP #### [address] Hematocrit (Bld) [Volume fraction] 39.5 % Normal 34.0-46.4 [facility] Comment on above: Performed By: #### C BC, LACTIC, HS TROP, BMP #### [address] Hemoglobin (Bld) [Mass/Vol] 12.8 g/dL Normal 11.8-15.4 [facility] Comment on above: Performed By: #### C BC, LACTIC, HS TROP, BMP #### [address] Lymphocytes (Bld) [#/Vol] 0.7 10*3/uL Low 1.00-4.8 [facility] Comment on above: Performed By: #### C BC, LACTIC, HS TROP, BMP #### [address] Lymphocytes/100 WBC (Bld) 9.3 % Normal . [facility] Comment on above: Performed By: #### C BC, LACTIC, HS TROP, BMP #### [address] MCH (RBC) [Entitic mass] 28.8 pg Normal 24.7-34.3 [facility] Comment on above: Performed By: #### C BC, LACTIC, HS TROP, BMP #### [address] MCV (RBC) [Entitic vol] 89.1 fL Normal 80-100 [facility] Comment on above: Performed By: #### C BC, LACTIC, HS TROP, BMP #### [address] Mean Corpuscular HGB Conc 32.4 g/dL Normal 32.0-35.0 [facility] Comment on above: Performed By: #### C BC, LACTIC, HS TROP, BMP #### [address] Monocytes (Bld) [#/Vol] 0.7 10*3/uL Normal 0.0-0.8 [facility] Comment on above: Performed By: #### C BC, LACTIC, HS TROP, BMP #### [address] Monocytes/100 WBC (Bld) 8.4 % Normal . [facility] Comment on above: Performed By: #### C BC, LACTIC, HS TROP, BMP #### [address] Neutrophils (Bld) [#/Vol] 6.4 10*3/uL Normal 1.8-7.7 [facility] Comment on above: Performed By: #### C BC, LACTIC, HS TROP, BMP #### [place] [address] [place] Neutrophils/100 WBC (Bld) 79.4 % Normal . [facility] Comment on above: Performed By: #### C BC, LACTIC, HS TROP, BMP #### [place] [address] [place] Nucleated RBC/100 WBC (Bld) [Ratio] 0.2 % Normal 0-0.5 [facility] Comment on above: Performed By: #### C BC, LACTIC, HS TROP, BMP #### [address] [place] [address] [place] Platelet mean volume (Bld) [Entitic vol] 9.4 fL Normal 6.3-10.7 [facility] Comment on above: Performed By: #### C BC, LACTIC, HS TROP, BMP #### [facility] [address] Platelets (Bld) [#/Vol] 138 10*3/uL Low 150-450 [facility] Comment on above: Performed By: #### C BC, LACTIC, HS TROP, BMP #### [address] RBC (Bld) [#/Vol] 4.44 10*6/uL Normal 3.60-5.00 [facility] Comment on above: Performed By: #### C BC, LACTIC, HS TROP, BMP #### [address] WBC (Bld) [#/Vol] 8.0 10*3/uL Normal 4.5-11.0 [facility] Comment on above: Performed By: #### C BC, LACTIC, HS TROP, BMP #### [address] D-Dimer High Sensitivityon 0 07-09-2021 D-Dimer High Sensitivity 247 ng/mL High 0-243 [facility] Comment on above: Result Comment: [...] patients due to co-morbid conditions. PERFORMED BY: [place] [address] PATHOLOGIST SHOE DESIGNER OTILIA BAIRD M.D. Performed By: #### C BC, LACTIC, HS TROP, BMP #### [facility] [address] [place] [address] [place] ECG 12 lead ECGon 07-09-2021 ECG 12 lead ECG [facility] Main [place] [address] [place] [id number] Electrocardiograph Report Signed Patient: Aliya Moore MR#: [id number] : 1965 Acct:[id number] Age/Sex: 55 / F ADM Date: 07/09/21 Loc: Room: 3T8066-5 Type: ADM IN Attending Dr: Kirk Lopez [...] ECGs available Confirmed by CAROLEE ABDALLA DO ([id number]) on 07/09/2021 1:45:33 AM Referred By: Electronically Signed By:CAROLEE ABDALLA DO Transcribed By: MUS Signed By Carolee Abdalla DO 07/09 0145 Normal [facility] Glucose Poct Glucometerson 0 07-09-2021 Commemt1 Glu2: Cleaned Meter Normal [facility] Comment on above: Result Comment: PERF ORMED BY: [place] [address] PATHOLOGIST SHOE DESIGNER OTILIA BAIRD M.D. Performed By: #### C BC, LACTIC, HS TROP, BMP #### [facility] [address] [place], [place] [id number] [facility] Glucose [Mass/Vol] 154 mg/dL Normal [facility] Comment on above: Result Comment: [facility] Glucose Reference Range is dependent on time and content of last meal. Glucose of more than 200 mg/dL in a nonstressed, ambulatory subject supports the diagnosis of Diabetes Mellitus. Performed By: #### C BC, LACTIC, HS TROP, BMP #### [facility] [address] [place] [address] [place] Glucose [Mass/Vol] 132 mg/dL Normal [facility] Comment on above: Result Comment: [place] Glucose Reference Range is dependent on time and content of last meal. Glucose of more than 200 mg/dL in a nonstressed, ambulatory subject supports the diagnosis of Diabetes Mellitus. PERFORMED BY: [address] [place] [address] PATHOLOGIST SHOE DESIGNER OTILIA BAIRD M.D. Performed By: #### C BC, LACTIC, HS TROP, BMP #### [place] [address] [place] Glucose [Mass/Vol] 176 mg/dL Normal [facility] Comment on above: Result Comment: [place] Glucose Reference Range is dependent on time and content of last meal. Glucose of more than 200 mg/dL in a nonstressed, ambulatory subject supports the diagnosis of Diabetes Mellitus. PERFORMED BY: [address] [place] [address] PATHOLOGIST SHOE DESIGNER OTILIA BAIRD M.D. Performed By: #### C BC, LACTIC, HS TROP, BMP #### [address] Glucose [Mass/Vol] 173 mg/dL Normal [facility] Comment on above: Result Comment: [place] Glucose Reference Range is dependent on time and content of last meal. Glucose of more than 200 mg/dL in a nonstressed, ambulatory subject supports the diagnosis of Diabetes Mellitus. PERFORMED BY: [address] [place] [address] PATHOLOGIST SHOE DESIGNER OTILIA BAIRD M.D. Performed By: #### G LULS #### Point of Care testing , Lactic Acidon 07-09-2021 Lactate [Moles/Vol] 0.6 mmol/L Normal 0.5-2.2 [facility] Comment on above: Result Comment: PERF ORMED BY: [place] [address] PATHOLOGIST SHOE DESIGNER OTILIA BAIRD M.D. Performed By: #### C BC, LACTIC, HS TROP, BMP #### [address] Valdemar Ag Negativeon 07-09-20 21 Valdemar Ag Negative Negative Normal Negative [facility] Comment on above: Result Comment: This is a duplicate Valdemar SARS Antigen (ROWDY) result to be used for statistical tracking purpose only. PERFORMED BY: [place] [address] PATHOLOGIST SHOE DESIGNER OTILIA BAIRD M.D. Performed By: #### C OVID 19 [facility], COVID-19 VALDEMAR, SOFIANEG #### [address] Troponin I High Sensitivityo n 07-09-2021 Troponin I High Sensitivity 14 pg/mL Normal 0-15 [facility] Comment on above: Result Comment: PERF ORMED BY: [place] [address] PATHOLOGIST SHOE DESIGNER OTILIA BAIRD M.D. Performed By: #### C BC, LACTIC, HS TROP, BMP #### [address] Venous Blood Gason 1 CO2 [Moles/Vol] 40.3 mmol/L High 24.0-29.0 [facility] Comment on above: Performed By: #### V BG #### Point of Care testing , HCO3 (Bld) [Moles/Vol] 38.2 mmol/L High 23.0-29.0 [facility] Comment on above: Performed By: #### V BG #### Point of Care testing , Respiratory Critical Normal [facility] Comment on above: Result Comment: Crit ical Value called on: 07/08/2021 at 23:40 PERFORMED BY: [place] [address] PATHOLOGIST SHOE DESIGNER OTILIA BAIRD M.D. Performed By: #### V BG #### Point of Care testing , VBG Base Excess 9.9 mmol/L High -3.0-3.0 [facility] Comment on above: Performed By: #### V BG #### Point of Care testing , VBG Draw Site Other Normal [facility] Comment on above: Performed By: #### V BG #### Point of Care testing , VBG Frac Inspired O2 70 % Normal [facility] Comment on above: Performed By: #### V BG #### Point of Care testing , VBG Oxygen Saturation 94.1 % Off scale high 73.0-76.0 [facility] Comment on above: Performed By: #### V BG #### Point of Care testing , VBG PCO2 70.1 mm[Hg] High 38.0-50.0 [facility] Comment on above: Performed By: #### V BG #### Point of Care testing , VBG PH Venous PH 7.35 Normal 7.32-7.43 [facility] Comment on above: Performed By: #### V BG #### Point of Care testing , VBG PO2 72.4 mm[Hg] High 35.0-45.0 [facility] Comment on above: Performed By: #### V BG #### Point of Care testing , XR chest 1V portableon 07-09 XR chest 1V portable [place] [address] XRay Report Signed Patient: Aliya Moore MR#: [id number] : 1965 Acct:[id number] Age/Sex: 55 / F ADM Date: 07/09/21 Loc: Room: [address] [place] [id number] Type: ADM IN Attending Dr: Kirk Lopez [...] Sheldon Khan M.D.07/09/2021 8:33 AM Dictation Location: [place] [address] Transcribed By: [facility] 07/09/21832 Dictated By: Sheldon Khan DO 07/09/21831 Signed By: 07/09/21832 [facility] Cardiovascular Lab Reporton 06-15-2021 Cardiovascular Lab Report [facility] Patient Name: Moore, [facility] Connie MR #: [id number] Department of Physician: Boo Landers M.D. Division of Service Date: 06/15/2021 Cardiology Birthdate: 1965 Adult Cardiovascular Room #: [place] [address] Cardiovascular Laboratory Report IMPRESSIONS: 1. Mild disease [...] management; given mild coronary artery disease, aspirin, zkxcgmhe-yg-sssy intensity statin therapy, beta-aleks, and angiotensin-convertin g enzyme inhibitor are indicated. 4. Follow up with Toshia Sam nurse practitioner in the next 2 to 3 months. 5. Follow up with her family physician as scheduled. PROCEDURES: Ultrasound-guided access to the right common femoral vein, ultrasound-guided access to the right common femoral artery, right heart catheterization, bilateral selective coronary angiography, placement of a 6-Cameroonian MynxGrip closure device. METHODS: After risks, benefits, [...] femoral vein and artery was obtained. A 6-Cameroonian 11 cm sheath was placed in each. [...] the procedure. All catheters were removed. A 6-Cameroonian MynxGrip closure device was deployed per protocol [...] Soto M.D. Date Trans: 06/15/2021 11:37 A/sofía [id number] cc: Toshia Sam, MSN, TRIPOLER-C Department Of Surgery [address] [facility] [address] Normal [facility] Vital Signs Date Time Vital Sign Value Performing Clinician Facility 01-16-2024 11:17-0400 Body temperature 97.7 [degF] Mariama Barcenas [facility] 01-16-2024 11:17-0400 Diastolic blood pressure 73 mm[Hg] [facility] Swapna [facility] 01-16-2024 11:17-0400 Heart rate 109 /min [facility] Swapna [facility] 01-16-2024 11:17-0400 Mean blood pressure 92 mm[Hg] Mariama Barcenas [facility] 01-16-2024 11:17-0400 Respiratory rate 18 /min [facility] Swapna [facility] 01-16-2024 11:17-0400 SaO2% (BldA) [Mass fraction] 94 % [facility] Swapna [facility] 01-16-2024 11:17-0400 Systolic blood pressure 130 mm[Hg] Mariama Barcenas [facility] 12-05-2023 08:48-0500 Body height 175.3 cm Brea Jj NP Work Phone: [facility] 12-05-2023 08:48-0500 Body mass index (BMI) [Ratio] 37.51 kg/m2 Brea Jj OPHTHALMIC TECH Work Phone: [facility] 12-05-2023 08:48-0500 Body temperature 97.11 [degF] Brea Jj OPHTHALMIC TECH Work Phone: [facility] 12-05-2023 08:48-0500 Body weight 115.21 kg Brea Jj OPHTHALMIC TECH Work Phone: [facility] 12-05-2023 08:48-0500 Diastolic blood pressure 68 mm[Hg] Brea Elainelloyd OPHTHALMIC TECH Work Phone: [facility] 12-05-2023 08:48-0500 Heart rate 103 /min Brea Jj OPHTHALMIC TECH Work Phone: [facility] 12-05-2023 08:48-0500 Respiratory rate 17 /min Brea Jj OPHTHALMIC TECH Work Phone: [facility] 12-05-2023 08:48-0500 SaO2% (BldA) [Mass fraction] 99 % Brea Jj OPHTHALMIC TECH Work Phone: [facility] 12-05-2023 08:48-0500 Systolic blood pressure 110 mm[Hg] Brea Jj OPHTHALMIC TECH Work Phone: [facility] 09-25-2023 21:50-0500 Diastolic blood pressure 73 mm[Hg] Demond Avni [facility] 09-25-2023 21:50-0500 Heart rate 95 /min Demond Avni [facility] 09-25-2023 21:50-0500 Mean blood pressure 90 mm[Hg] Demond Avni [facility] 09-25-2023 21:50-0500 Respiratory rate 22 /min Demond Avni [facility] 09-25-2023 21:50-0500 SaO2% (BldA) [Mass fraction] 97 % Demond Avni [facility] 09-25-2023 21:50-0500 Systolic blood pressure 123 mm[Hg] Demond Avni [facility] 09-25-2023 20:37-0500 Diastolic blood pressure 77 mm[Hg] Demond Avni [facility] 09-25-2023 20:37-0500 Heart rate 94 /min Demond Avni [facility] 09-25-2023 20:37-0500 Mean blood pressure 99 mm[Hg] Demond Avni [facility] 09-25-2023 20:37-0500 Respiratory rate 18 /min Demond Avni [facility] 09-25-2023 20:37-0500 SaO2% (BldA) [Mass fraction] 97 % Demond Avni [facility] 09-25-2023 20:37-0500 Systolic blood pressure 144 mm[Hg] Demond Avni [facility] 09-25-2023 19:50-0500 Diastolic blood pressure 83 mm[Hg] Demond Avni [facility] 09-25-2023 19:50-0500 Heart rate 100 /min Demond Avni [facility] 09-25-2023 19:50-0500 Mean blood pressure 104 mm[Hg] Demond Avni [facility] 09-25-2023 19:50-0500 Respiratory rate 22 /min Demond Avni [facility] 09-25-2023 19:50-0500 SaO2% (BldA) [Mass fraction] 98 % Demond Avni [facility] 09-25-2023 19:50-0500 Systolic blood pressure 147 mm[Hg] Demond Avni [facility] 09-25-2023 18:23-0500 Body temperature 98.24 [degF] Demond Avni [facility] 09-25-2023 18:23-0500 Heart rate 111 /min Demond Avni [facility] 09-25-2023 18:23-0500 Respiratory rate 24 /min Demond Avni [facility] 09-08-2023 20:26-0500 Body temperature 98.06 [degF] Ramses Hair [facility] 09-08-2023 20:26-0500 Diastolic blood pressure 76 mm[Hg] Ramses Hair [facility] 09-08-2023 20:26-0500 Heart rate 81 /min Ramses Hair [facility] 09-08-2023 20:26-0500 Mean blood pressure 87 mm[Hg] Ramses Hair [facility] 09-08-2023 20:26-0500 Respiratory rate 20 /min Ramses Hair [facility] 09-08-2023 20:26-0500 SaO2% (BldA) [Mass fraction] 99 % Ramses Hair [facility] 09-08-2023 20:26-0500 Systolic blood pressure 110 mm[Hg] Ramses Hair [facility] 09-08-2023 19:28-0500 Diastolic blood pressure 61 mm[Hg] Ramses Hair [facility] 09-08-2023 19:28-0500 Heart rate 86 /min Ramses Hair [facility] 09-08-2023 19:28-0500 Mean blood pressure 82 mm[Hg] Ramses Hair [facility] 09-08-2023 19:28-0500 Respiratory rate 18 /min Ramses Hair [facility] 09-08-2023 19:28-0500 SaO2% (BldA) [Mass fraction] 99 % Ramses Hair [facility] 09-08-2023 19:28-0500 Systolic blood pressure 123 mm[Hg] Ramses Hair [facility] 09-08-2023 18:00-0500 Diastolic blood pressure 75 mm[Hg] Ramses Hair [facility] 09-08-2023 18:00-0500 Heart rate 92 /min Ramses Hair [facility] 09-08-2023 18:00-0500 SaO2% (BldA) [Mass fraction] 91 % Ramses Hair [facility] 09-08-2023 18:00-0500 Systolic blood pressure 124 mm[Hg] Ramses Hair [facility] 09-08-2023 16:33-0500 Body temperature 98.24 [degF] Ramses Hair [facility] 09-08-2023 16:33-0500 Heart rate 104 /min Ramses Reginaldo [facility] 09-08-2023 16:33-0500 Respiratory rate 24 /min Ramses Reginaldo [facility] 07-19-2023 09:00-0400 Blood Pressure Location [facility] 07-19-2023 09:00-0400 Body temperature 98.06 [degF] [facility] AlMarrawi [facility] 07-19-2023 09:00-0400 Diastolic blood pressure 72 mm[Hg] Mhd Al-Marrawi [facility] 07-19-2023 09:00-0400 Heart rate 79 /min Mhd Al-Marrawi [facility] 07-19-2023 09:00-0400 Mean blood pressure 88 mm[Hg] Mhd Al-Marrawi [facility] 07-19-2023 09:00-0400 Respiratory rate 18 /min Mhd Al-Marrawi [facility] 07-19-2023 09:00-0400 SaO2% (BldA) [Mass fraction] 93 % d Al-Marrawi [facility] 07-19-2023 09:00-0400 Systolic blood pressure 120 mm[Hg] d Al-Marrawi [facility] 06-28-2023 10:00-0400 Blood Pressure [facility] 06-28-2023 10:00-0400 Body temperature 98.06 [degF] [facility]-28-2023 10:00-0400 Diastolic blood pressure 69 mm[Hg] [facility] 06-28-2023 10:00-0400 Heart rate 101 /min [facility] 06-28-2023 10:00-0400 Mean blood pressure 90 mm[Hg] [facility] 06-28-2023 10:00-0400 Respiratory rate 16 /min [facility] 06-28-2023 10:00-0400 SaO2% (BldA) [Mass fraction] 92 % [facility] 06-28-2023 10:00-0400 Systolic blood pressure 133 mm[Hg] Ezekiel Christian [facility] 06-17-2023 17:06-0400 Hourly Rounding Mbanefo OJUKWU [facility] 06-17-2023 17:06-0400 Promise to Return Mbanefo OJUKWU [facility] 06-17-2023 16:00-0400 Hourly Rounding Mbanefo OJUKWU [facility] 06-17-2023 16:00-0400 Promise to Return Mbanefo OJUKWU [facility] 06-17-2023 15:42-0400 Heart rate 82 /min Mbanefo OJUKWU [facility] 06-17-2023 15:42-0400 SaO2% (BldA) [Mass fraction] 95 % Mbanefo OJUKWU [facility] 06-17-2023 15:42-0400 Diastolic blood pressure 64 mm[Hg] Mbanefo OJUKWU [facility] 06-17-2023 15:42-0400 Mean blood pressure 79 mm[Hg] Mbanefo OJUKWU [facility] 06-17-2023 15:42-0400 Systolic blood pressure 109 mm[Hg] Mbanefo OJUKWU [facility] 06-17-2023 15:41-0400 Body temperature 97.88 [degF] Mbanefo OJUKWU [facility] 06-17-2023 15:05-0400 Hourly Rounding Mbanefo OJUKWU [facility] 06-17-2023 15:05-0400 Promise to Return Mbanefo OJUKWU [facility] 06-17-2023 14:00-0400 SaO2% (BldA) [Mass fraction] 96 % Mbanefo OJUKWU [facility] 06-17-2023 12:53-0400 Heart rate 87 /min Mbanefo OJUKWU [facility] 06-17-2023 12:53-0400 Respiratory rate 18 /min Mbanefo OJUKWU [facility] 06-17-2023 12:48-0400 SaO2% (BldA) [Mass fraction] 95 % Mbanefo OJUKWU [facility] 06-17-2023 12:44-0400 Heart rate 86 /min Mbanefo OJUKWU [facility] 06-17-2023 12:44-0400 Respiratory rate 18 /min Mbanefo OJUKWU [facility] 06-17-2023 12:00-0400 Diastolic blood pressure 66 mm[Hg] Mbanefo OJUKWU [facility] 06-17-2023 12:00-0400 Mean blood pressure 86 mm[Hg] Mbanefo OJUKWU [facility] 06-17-2023 12:00-0400 Systolic blood pressure 125 mm[Hg] Mbanefo OJUKWU [facility] 06-17-2023 09:19-0400 Diastolic blood pressure 71 mm[Hg] Mbanefo OJUKWU [facility] 06-17-2023 09:19-0400 Systolic blood pressure 134 mm[Hg] Mbanefo OJUKWU [facility] 06-17-2023 09:16-0400 gluc 173 mg/dL Mbanefo OJUKWU [facility] 06-17-2023 07:33-0400 Mean blood pressure 90 mm[Hg] Mbanefo OJUKWU [facility] 06-17-2023 07:33-0400 Body temperature 97.88 [degF] Mbanefo OJUKWU [facility] 06-17-2023 04:00-0400 Blood Pressure Location Mbanefo OJUKWU [facility] 06-17-2023 04:00-0400 Body temperature 98.24 [degF] Mbanefo OJUKWU [facility] 06-17-2023 04:00-0400 Mean blood pressure 91 mm[Hg] Mbanefo OJUKWU [facility] 06-17-2023 00:00-0400 Body temperature 97.88 [degF] Mbanefo OJUKWU [facility] 06-16-2023 22:48-0400 Blood Pressure Location Mbanefo OJUKWU [facility] 06-16-2023 22:48-0400 Body temperature 98.24 [degF] Mbanefo OJUKWU [facility] 06-16-2023 22:48-0400 Heart rate 80 /min Mbanefo OJUKWU [facility] 06-16-2023 21:42-0400 Mean blood pressure 76 mm[Hg] Mbanefo OJUKWU [facility] 06-16-2023 21:42-0400 Respiratory rate 18 /min Mbanefo OJUKWU [facility] 06-16-2023 20:45-0400 Mean blood pressure 95 mm[Hg] Mbanefo OJUKWU [facility] 06-16-2023 20:45-0400 Respiratory rate 18 /min Mbanefo OJUKWU [facility] 06-16-2023 19:39-0400 Respiratory rate 18 /min Mbanefo OJUKWU [facility] 06-16-2023 15:51-0400 Heart rate 107 /min Mbanefo OJUKWU [facility] 06-16-2023 15:51-0400 Respiratory rate 22 /min Mbanefo OJUKWU [facility] Encounters Encounter Date Encounter Type Care Provider Facility Start: 05-23-2024 End: 05-23-2024 ambulatory BREA AICHHOLZ Not Available Start: 02-21-2024 End: 02-21-2024 ambulatory BREA AICHHOLZ Not Available Start: 01-16-2024 End: 01-17-2024 ambulatory Mariama Barcenas Facility:[facility] Start: 01-16-2024 End: 01-16-2024 Patient encounter procedure Mariama Barcenas [facility] Start: 01-10-2024 End: 01-10-2024 ambulatory BREA AICHHOLZ Not Available Start: 01-09-2024 End: 01-10-2024 ambulatory Mhd Yaser Al-Marrawi Facility:[facility] Start: 01-09-2024 End: 01-09-2024 Patient encounter procedure Mhd Yaser Al-Marrawi [facility] Start: 12-08-2023 Refill Brea Aichholz OPHTHALMIC TECH Work Phone: [facility] Comment on above: Anxiety and depressi on (CMS/HCC) (Primary Dx); Type 2 diabetes mellitus without complication, without long-term current use of insulin (CMS/HCC); Arthritis Start: 12-05-2023 End: 12-05-2023 Office outpatient visit 25 minutes Brea Aichholz OPHTHALMIC TECH Work Phone: [facility] Comment on above: Other insomnia (Prim fay Dx); ROLANDO (obstructive sleep apnea); COPD mixed type (CMS/HCC); Tobacco dependence syndrome; BMI 37.0-37.9, adult; Anxiety and depression (CMS/HCC); Restless leg syndrome Start: 12-05-2023 End: 12-05-2023 ambulatory BREA AICHHOLZ Not Available Start: 10-19-2023 End: 10-19-2023 ambulatory BREA AICHHOLZ Not Available Start: 09-25-2023 End: 09-25-2023 Emergency department patient visit Moess Fischer Facility:[facility] Start: 09-25-2023 End: 09-25-2023 Emergency department patient visit Demond Holly [facility] Start: 09-08-2023 End: 09-08-2023 Emergency department patient visit Ramses Hair Facility:[facility] Start: 09-08-2023 End: 09-08-2023 Emergency department patient visit Ramses Hair [facility] Start: 07-20-2023 End: 07-20-2023 ambulatory EHAB [facility] Start: 07-19-2023 End: 07-20-2023 ambulatory Mhd Ryan Bob Facility:[facility] Start: 07-19-2023 End: 07-19-2023 Patient encounter procedure Mhd Ryan Bob [facility] Start: 06-28-2023 End: 06-29-2023 ambulatory Mhd Ryan Woodward-Neelima Facility:[facility] Start: 06-28-2023 End: 06-29-2023 ambulatory Mhd Leeannser Al-Neelima Facility:[facility] Start: 06-28-2023 End: 06-28-2023 Patient encounter procedure Ezekiel Christian [facility] Start: 06-16-2023 End: 06-17-2023 ambulatory Mbanefo OJUKWU Facility:[facility] Start: 06-16-2023 End: 06-17-2023 Observation Mbanefo OBECCAKWU [facility] Start: 02-23-2023 End: 02-23-[address] SHELDON CARVAJAL . Facility:[facility] Start: 02-01-2023 End: 02-02-2023 ambulatory CORRINAYUDITH GAINES Lakia Facility:[facility] Start: 01-12-2023 End: 01-13-2023 ambulatory POWERSAW SUPERVISOR BREA AICHHOLZ Facility:[facility] Start: 01-03-2023 End: 01-04-2023 ambulatory POWERSAW SUPERVISOR BREA AICHHOLZ Facility:[facility] Start: 12-24-2022 End: 12-24-2022 ambulatory TOSHIA SAM [facility] Start: 11-04-2022 End: 11-05-2022 ambulatory POWERSAW SUPERVISOR BREA AICHHOLZ Facility:[facility] Start: 07-28-2022 End: 07-29-2022 ambulatory POWERSAW SUPERVISOR BREA AICHHOLZ Facility:[facility] Start: 04-30-2022 End: 05-01-2022 ambulatory POWERSAW SUPERVISOR BREA AICHHOLZ Facility:[facility] Start: 03-26-2022 End: 03-26-2022 ambulatory POWERSAW SUPERVISOR BREA AICHHOLZ Facility:[facility] Start: 06-15-2021 End: 06-16-2021 ambulatory TOSHIA SAM Facility:[facility] Procedures Date Procedure Procedure Detail Performing Clinician Start: 04-14-2023 Mammography Brea Paula mcmahon OPHTHALMIC TECH Work Phone: Start: 03-31-2020 Colonoscopy Brea mcmahon OPHTHALMIC TECH Work Phone: Start: 05-05-1987 section [facility]jah Christian Start: 06-20-1984 section Elijah Christian Cyst (disorder) Ezekiel Allen solorzano Comment on above: Removal of cyst of r ight foot. Knee region structur e (body structure) Ezekiel Christian Comment on above: surgery Plan of Treatment Date Care Activity Detail Author Start: 03-31-2030 Screening for malign ant neoplasm of colon [facility] Start: 06-23-2028 Screening for malign ant neoplasm of cervix [facility] Start: 01-29-2025 Glaucoma screening Diabetes: R etinopathy Screening [facility] Start: 04-29-2024 Influenza vaccination Influenza Vacc ine (#1) [facility] Comment on above: Postponed from 07/01 (Patient Refused) Start: 04-14-2024 Screening for malign ant neoplasm of breast Mammogram [facility] Start: 04-14-2024 Urine screening for protein Diabetes: Urine Protein Screening [facility] Start: 01-25-2024 Hemoglobin A1c measurement Diabetes: Hemoglobin A1C [facility] Start: 01-10-2024 End: 01-10-2024 Patient encounter procedure 01/10/2024 9:00 AM EDT Office Visit [facility] [address] [place] [address] Brea Jj, TOBIAS [address] [place] [id number] [facility] Start: 1985 Screening for malign ant neoplasm of cervix Pap Smear [facility] Start: 1965 Screening for malign ant neoplasm of colon [facility] Payers Date Payer Category Payer Medicaid [employer] [place] [employer] [id number] 2020-Present [address] [place] [address] [id number] 1965 Unknown [id number] 2.16.840.1.496125.3.579.2.647 1965 Unknown [id number] 2.16.840.1.943543.3.579.2.593 1965 Unknown [id number] 2.16.840.1.610869.3.579.2.593 1964 Unknown [id number] 2.16.840.1.532833.3.579.2.593 1964 Unknown [id number] 2.16.840.1.630015.3.579.2.593 1964 Unknown [id number] 2.16.840.1.964269.3.579.2.593 1964 Unknown [id number] 2.16.840.1.009903.3.579.2.593 1964 Unknown [id number] 2.16.840.1.106883.3.579.2.593 1964 Unknown [id number] 2.16.840.1.009023.3.579.2.593 1964 Unknown [id number] 2.16.840.1.901028.3.579.2.727 1964 Unknown [id number] 2.16.840.1.023818.3.579.2.727 1964 Unknown [id number] 2.16.840.1.111332.3.579.2.727 1964 Unknown [id number] 2.16.840.1.690520.3.579.2.727 1964 Unknown [id number] 2.16.840.1.147437.3.579.2.727 1964 Unknown [id number] 2.16.840.1.574747.3.579.2.727 1964 Unknown [id number] 2.16.840.1.776025.3.579.2.727 1964 Unknown [id number] 2.16.840.1.523062.3.579.2.727 1964 Unknown [id number] 2.16.840.1.944801.3.579.2.727 1965 Unknown [id number] 2.16.840.1.204241.3.579.2.9 1965 Unknown [id number] 2.16.840.1.937879.3.579.2.9 1964 Unknown [id number] 2.16.840.1.988317.3.579.2.1259 1964 Unknown [id number] 2.16.840.1.704670.3.579.2.9 1965 Unknown [id number] 2.16.840.1.232167.3.579.2.9 1959 Unknown [id number] Social History Date Type Detail Facility Tobacco Former smoker [facility] Comment on above: 1/2 pack a day Tobacco smoking status No Smokin g Status Entered [facility] Start: 04-21-2023 End: 12-05-2023 Sex Assigned At Female [facility] Start: 06-28-2023 End: 10-19-2023 Tobacco smoking status Ex-smoker (finding) [facility] Comment on above: Quit 06/19/23 1/2 pack a day History of tobacco use Current smoker [facility] History of tobacco use Cigarette Smoker [facility] Start: 10-19-2023 End: 12-05-2023 Cigarettes smoked [...] Comment caffeine 2-3 c ups per day [facility] Start: 1965 [facility] Assigned At Female [facility] Start: 04-20-2023 Gender identity Identifies as female gender (finding) [facility] Start: 04-20-2023 Sexual orientation Heterosexual (milvia bustamante) [facility] Medical Equipment Procedure Code Equipment Code Equipment Origin al Text Equipment Identifier Dates USE ONCE DAILY A S DIRECTED [id number] Start: 03-17-2023 Functional Status Date Assessment Result Facility 09-25-2023 Functional Status N/A [facility] 09-08-2023 Functional Status N/A [facility] 06-16-2023 Functional Status N/A [facility] 06-16-2023 Functional Status [facility] Clinical Notes 12-24-2022 to 01-16-2024 Brea Jj NP - 12/05/2023 9:41 AM ESTBrea Jj, TOBIAS - 12/05/2023 9:41 AM Gretchen Jj, TOBIAS - 12/05/2023 9:40 AM ESTLisa Анна, TOBIAS - 12/05/2023 9:40 AM EST Note Date & Type Note Facility 01-16-2024 Evaluation + Plan note Diagnostic Tests PendingMethylmalonic Acid 01/16/24 [facility] 12-05-2023 History of Present illness Narrative [...] Medical History: Diagnosis Date Anxiety and depression ([facility]) 10/12/2023 Arthritis Class 2 severe obesity due to excess calories with serious comorbidity in adult ([facility]) 10/19/2023 COPD (chronic obstructive pulmonary disease) ([facility]) Fibrocystic breast disease Mixed hyperlipidemia ([facility]) 10/12/2023 ROLANDO (obstructive sleep apnea) Other insomnia 10/19/2023 Primary hypertension ([facility]) 10/12/2023 Restless leg syndrome 10/12/2023 Type 2 diabetes mellitus without complication, without long-term current use of insulin ([facility] 10/19/2023 Past Surgical History: Procedure Laterality Date [...] BMI 37.0-37.9, adult documented in this encounter [facility] 09-25-2023 Hospital Discharge instructions Patient Education [...] Follow these instructions at home: Medicines Take aagk-ueu-wzhcljj and prescription medicines only as told by [...] important. Where to find more information National Otto of Diabetes and Digestive and Kidney Diseases: [...] provider. Document Revised: 09/08/2020 Document Reviewed: 09/08/2020 Elsevier Patient Education 2023 [email or web address]. Follow Up Care 09/25/2023 18:11:16 With:[facility] Address: Yary Higgins [facility] [address] Floor, [address] [place] [phone] Business (1) When:09/28/2023 21:47:26 With:BREA JJ Address: [address] [place] [address] [phone] Business (1) When:Within 3 Day(s) [facility] 09-25-2023 Evaluation + Plan note Extrac [...] 09/25/23 18:25:00 EST, Height/Length Dosing, 121, kg, 11/26/23 18:25:00 EST, Weight Dosing Sodium Chloride 0.9% [...] Comprehensive Metabolic Panel 12/27/23 * D-Dimer 12/27/23 [facility]11-09-2023 Hospital Discharge instructions Patient Education 09/08/2023 [...] Follow these instructions at home: Medicines Take agya-vsk-lfteuml and prescription medicines only as told by [...] provider. Document Revised: 12/31/2021 Document Reviewed: 12/31/2021 [employer] Patient Education 2022 [email or web address]. Follow Up Care 09/08/2023 16:32:40 With:BREA JJ Address: [address] [place] [phone] Business (1) When:Within 3 Day(s) [facility]11-09-2023 Evaluation + Plan noteExtracted from: Title:ED [...] Comprehensive Metabolic Panel 12/27/23 * D-Dimer 12/27/23 [facility] Chief Complaint: Patient here for 6 mo follow up hypertension and coronary-myocardial bridge. Says she was admitted to [facility] in [place] for chest pain. Says she was diagnosed with PE. Following with safety officer now and was started on Eliquis. She [...] history of COPD (chronic obstructive pulmonary disease) ([facility]), Diabetes mellitus ([facility]), Hyperlipidemia, Hypertension, and Sleep apnea. Surgical [...] edema History of pu (more content not included)...[facility] 07-19-2023 Hospital Discharge instructions Follow Up Care 07/19/2023 10:53:55 With:Swapna ANGUIANO, Mariama Chen, ONC Address: [place] [address] [phone] When: Unknown Comments:iron studies, b12, folate, mma todayfollow-up in 6mo with OPHTHALMIC TECH [facility]08-29-2023 Hospital Discharge instructions Follow Up Care 06/28/2023 11:35:56 With:Roby Bob Address: [address] [phone] Business (1) When: Unknown Comments:Continue ELiquis for 6 months total.D dimer, CBCD and CMP end of December 2023.RTC end of December,sooner if new SOB or CP or Leg pain or swelling or bleeding. [facility]08-18-2023 NoteEchocardiology Procedure Exam Date/Time Accession # Ordering Dr. Crouch Transthoracic 06/17/2023 15:26 EDT [id number] JANETTE BOOTHE, Mbanefo Complete CPT code 19743 80313 Reason for Exam (Echo Transthoracic Complete) Acute pulmonary embolism;Other (please specify) Report [place] [id number] Adult Echocardiogram Report Name: ALIYA MOORE Study Date: 06/17/2023 02:55 PM BP: 132/70 mmHg Patient Location: [id number] [facility] HR: 85 : 1965 Gender: Female Age: 57 yrs Ethnicity: [facility] Weight: 251 lb Reason For Study: Other [...] Signed by: Satinder RODNEY MD Transcribed by: Ruthann Technologist: [facility]08-18-2023 Note Admission and Discharge Information Admitting [...] female cigarette smoker with history of hypertension, kmq-exzgapi-lwxzsotki diabetes mellitus type 2, obesity, chronic hypoxic respiratory failure on 3 L home oxygen, depressionpresented with complaints of right-sided chest pain. She was subsequently admitted to [facility] with chest pain secondary to [...] primary care physician as well as the safety officer. Significant Findings (06/16/2023 19:59 EDT US LE [...] 75.7 % Lymph Auto - 14.3 % Johnston Auto - 8.8 % Eos Auto - 0.9 % Basophil Auto - 0.3 % Neutro Absolute - 6.4 E9/L Lymph Absolute - 1.2 E9/L Johnston Absolute - 0.7 E9/L Eos Absolute - [...] - 133 mg/dL POC Device SN - [id number] POC User ID - [id number] POC Username - FAVIOLA MURO CBC w/ [...] Discharge Plan Discharge D (more content not included)...[facility]:Result Comment: Electronically Signed By: JANETTE BOOTHE, Alex\.br\Date and Time Signed: 06/17/23 14:21 [id number] Hospital Discharge instructions Patient Education 06/17/2023 14:17:33 [...] Follow these instructions at home: Medicines Take rdid-vhq-yqrtbxk and prescription medicines only as told by [...] is important. Where to find more information [place] [employer]: www.lung.org Centers for Disease Control [...] provider. Document Revised: 09/18/2021 Document Reviewed: 09/18/2021 [employer] Patient Education 2022 [email or web address]. Follow Up Care 06/16/2023 15:48:06 With:BREA JJ Address: [address] [place] [phone] [facility] (1) When:1 week Comments:A voice message is left with this office with your information so they can call you for a follow upappiontment. Please call them if you do not hear from them in a few days. Thank you. With:Ezekiel Christian Address: [facility] [address] [place] [phone]- When:06/28/2023 11:00:00 [facility]08-18-2023 Evaluation + Plan noteExtracted from: Title:Discharge [...] puff(s), Inhalation, BID fluticasone Nasal 0.05 mg/inh [place], 2 spray(s), Nasal, Daily furosemide 20 mg Tab, 20 mg= 1 tab(s), Oral, Daily gabapentin 300 mg Cap, 300 mg= 1 cap(s), Oral, BID hydrochlorothiazide-lisinopril 25 mg-20 mg Tab, 1 tab(s), Oral, Daily lamotrigine 25 mg Tab, 25 mg= 1 tab(s), Oral, BID pioglitazone 15 mg Tab, 15 mg= 1 tab(s), Oral, Daily Potassium Chloride (Tvf-Gqiv-Ubf 10) 10 mEq oral tablet, extended release pramipexole 0.5 mg oral tablet, 0.5 mg= 1 tab(s), Oral, TID theophylline 300 mg ER Tab, 300 mg= 1 tab(s), Oral, q12hr traZODONE 50 mg Tab, 50 mg= 1 tab(s), Oral, Once a day (at bedtime) Ventolin HFA 90 mcg/inh Aerosol-Adpt, 1 puff(s), Inhalation, QID, PRN With When Contact Information Ezekiel Christian 06/28/2023 11:00 AM EDT [facility] [address] [place] [address]- Additional Instructions: BREA JJ Within 1 week [address] [place] [address] [phone] Business (1) Additional Instructions: A voice message is left with this office with your information so they can call you for a follow up appiontment. Please call them if you do not hear from them in a few days. Thank you. Pulmonary Embolism Extracted from: Title:Admission H & P Author:Alex BARRIENTOS MD Date:06/16/23 57-year-old female cigarette smoker with history of hypertension, ngn-xiwhpbi-wptnkbhzn diabetes mellitus, obesity, chronic hypoxic respiratory failure [...] Ordered: Initial Hospital Care/Day High 75 Minutes 17286 2. Acute pulmonary embolism (I26.99: Other pulmonary [...] Ordered: Initial Hospital Care/Day High 75 Minutes 30391 3. Sinus tachycardia (R00.0: Tachycardia, unspecified) Secondary to above acute pulmonary embolism. Monitor on telemetry. Ordered: Initial Hospital Care/Day High 75 Minutes 73686 4. COPD without exacerbation (J44.9: Chronic obstructive pulmonary disease, unspecified) Supportive care. Continue on nebulizer treatments. Ordered: Initial Hospital Care/Day High 75 Minutes 13993 5. Hypertension (I10: Essential (primary) hypertension) We will verify home medications and resume accordingly. Ordered: Initial Hospital Care/Day High 75 Minutes 84433 6. Diabetes mellitus (E11.9: Type 2 diabetes [...] made to ensure accuracy. However inadvertent computerized typing element machine operator errors may be present. Alex Barrientos. Hospitalist. [...] deep vein thrombosis (DVT) prophylaxis (Z79.899: Other machine i cutter (current) drug therapy) 4. COPD without exacerbation [...] Scheduled Provider: Location:.ONCOLOGY Appointment Type:ONC Office Visit [facility] () [facility]08-18-2023 Hospital Discharge instructions Follow Up Care 06/17/2023 09:42:41 With:Roby Bob Address: [facility] [address] [place] [phone] Business (1) When: Unknown Comments:THrombophilia labs now with D dimer.D dimer in 3 weeks if D dimer from now is still high.Continue Eliquis 5 mg twice daily for minimum of 6 months.RTC in 3 weeks for results. [facility]08-17-2023 NoteChief Complaint CP started this afternoon while sitting down. states mid sternal CP 10/10. wears 3L O2 all the time. History of Present Illness 57-year-old female cigarette smoker with history of hypertension, urp-abjjwjk-sdgckcexj diabetes mellitus, obesity, chronic hypoxic respiratory failure [...] 16:00:00) Lymph Auto: 14.3 % (06/16/23 16:00:00) Johnston Auto: 8.8 % (06/16/23 16:00:00) Eos Auto: 0.9 % (06/16/23 16:00:00) Basophil Auto: 0.3 % (06/16/23 16:00:00) Neutro Absolute: 6.4 E9/L (06/16/23 16:00:00) Lymph Absolute: 1.2 E9/L (06/16/23 16:00:00) Johnston Absolute: 0.7 E9/L (06/16/23 16:00:00) Eos Absolute: [...] RIGHT LOWER LOBE. E (more content not included)...[facility] CenterComment on above: Result Comment: Electronically Signed By: JANETTE BOOTHE, Alex\.br\Date and Time Signed: 06/16/23 19:05 [id number] NoteStable, [facility] NoteCurrently well controlled with lasix [facility]02-24-2023 NoteNo concerning symptoms, overall she is doing well.[facility]02-24-2023 Note Hypertension is well controlled 102/62 Continue lisinopril/HCTZ, lasix Renal function [facility]Un[facility] NotePatient here for 6 mo follow up hypertension and myocardial bridge of coronary artery. Had labs in Jul 2022. Denies chest pain and lightheadedness. Review of Systems Cardiovascular: Positive for dyspnea on exertion. Respiratory: Positive for cough and shortness of breath. Musculoskeletal: Positive for arthritis, back pain and joint pain. Neurological: Positive for headaches. All other systems reviewed and are negative.[facility] 12-24-2022 NoteUTP CARDIOLOGY PROGRESS NOTE HPI: Aliya [...] most likely r/t pulmo (more content not included)...[facility] 12-24-2022 NoteProvider had extended 10 min discussion again with patient about smoking cessation, at this time she doesn't want to take any further medication or that she is ready to quit smoking at this time.[facility] Evaluation + Plan note Future Appointments Appointment Date:07/19/2023 10:00:00 AM Scheduled Provider: Location:.ONCOLOGY Appointment Type:ONC Office Visit 30 (FT) [facility] Future Appointments Appointment Date:01/16/2024 09:00:00 AM Scheduled Provider: [facility] Office Visit 30 (FT) Future Scheduled Tests Laboratory* CBC w/ Auto Diff 12/27/23 * Comprehensive Metabolic Panel 12/27/23 * D-Dimer 12/27/23 [facility] Future Appointments Appointment Date:01/16/2024 11:30:00 AM Scheduled Provider:Mariama Moore Location:FT.ONCOLOGY Appointment Type:ONC Office Visit 30 (FT) [facility] Diagnosis Other insomnia- Primary ROLANDO (obstructive sleep apnea) Obstructive sleep apnea (adult) (pediatric) COPD mixed type ([facility]/HCC) Tobacco dependence syndrome Tobacco use disorder BMI 37.0-37.9, adult Anxiety and depression ([facility]/HCC) Restless leg syndrome Restless legs syndrome (RLS) documented in this encounter [facility] HealthcareEvaluation note* Diagnosis Anxiety and depression ([facility]/HCC)- Primary Type 2 diabetes mellitus without complication, without long-term current use of insulin ([facility]) Arthritis Unspecified arthropathy, site unspecified documented in this encounter [facility] HealthcareHospital course Narrative No data available for this section [facility] No data available for this section [facility] No data available for this section [facility] Summary Purpose Family History No Family [...] and content) DATE CREATED AUTHOR 06/22/2021 [facility] DATE CREATED AUTHOR AUTHOR'S ORGANIZ ATION 12/15/2021 [facility] DATE CREATED AUTHOR AUTHOR'S ORGANIZ ATION 02/26/2023 [facility] DATE CREATED AUTHOR AUTHOR'S ORGANIZ ATION 09/10/2023 [facility] DATE CREATED AUTHOR AUTHOR'S ORGANIZ ATION 01/24/2024 [facility] DATE CREATED AUTHOR AUTHOR'S ORGANIZ ATION 05/25/2024 [facility] dical Specialists EPIC Patient Care team informatio n (unrecognized section and content) 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 [employer] provides no warranty or guarantee of the accuracy or completeness of information in this document.
== END 2024-05-29 09:20 | disposition home or self-care (01) ==
LOC: CT 09:19
PROVIDERS: PCP Nurse Practitioner; Visit Provider Internal Medicine
DX: F17.219 Nicotine dependence, cigarettes, with unspecified nicotine-induced disorders (principal); Z12.2 Encounter for screening for malignant neoplasm of respiratory organs
CPT/HCPCS: 71271

== ENCOUNTER 2024-10-27 09:52 | Emergency (ER) | payer OTHER, SELFPAY ==
[2024-10-27 09:57] VITALS: BP 171/75; PULSE 105; TEMP 36.4; O2SAT 97; BMI 36.9
--- OUTSIDE RECORDS SUMMARY | 2024-10-27 10:06 | XMS_ITS | CCD ---
Author Organization [facility] Care Team Providers Care Slipper Maker Name Role Phone TOSHIA SAM Attending Unavailable TOSHIA SAM Admitting Unavailable SELF, REFERRED Referring Unavailable SELF, REFERRED Primary Care Unavailable AICHHOLZ, CLIP BAKER BREA Primary Care Unavailable SAMSA ., CORRINA Consulting Unavailable SAMSA ., CORRINA Admitting Unavailable SAMSA ., CORRINA Attending Unavailable AICHHOLZ, CLIP BAKER BREA Attending Unavailable AICHHOLZ, CLIP BAKER BREA Consulting Unavailable AICHHOLZ, CLIP BAKER BREA Primary Care Unavailable AICHHOLZ, CLIP BAKER BREA Admitting Unavailable AICHHOLZ, CLIP BAKER BREA Primary Care Unavailable ROSA M, DR MIGUEL Cline Consulting Unavailable SAMSA ., CORRINA Admitting Unavailable SAMSA ., CORRINA Attending Unavailable SAMSA ., CORRINA Consulting Unavailable SAMSA ., CORRINA Attending Unavailable SAMSA ., CORRINA Consulting Unavailable SAMSA ., CORRINA Admitting Unavailable AICHHOLZ, CLIP BAKER BREA Primary Care Unavailable AICHHOLZ, CLIP BAKER BREA Attending Unavailable LETY, DR LEANA Worrell Consulting Unavailable AICHHOLZ, CLIP BAKER BREA Primary Care Unavailable AICHHOLZ, CLIP BAKER BREA Admitting Unavailable AICHHOLZ, CLIP BAKER BREA Consulting Unavailable PAY ., DR SALAZAR Admitting Unavailable PAY ., DR SALAZAR Attending Unavailable PAY ., DR SALAZAR Consulting Unavailable AICHHOLZ, CLIP BAKER BREA Primary Care Unavailable MEDARDOCHNY .JUAN Consulting Unavailabl e Rastealla, Justine Consulting Unavailable AICHHOLZ, CLIP BAKER BREA Primary Care Unavailable PAY ., DR SALAZAR Attending Unavailable PAY ., DR SALAZAR Admitting Unavailable GRECHNY .JUAN Consulting Unavailabl e POLICTERESA, KENDY Consulting Unavailable AICHHOLZ, CLIP BAKER BREA Attending Unavailable AICHHOLZ, CLIP BAKER BREA Consulting Unavailable AICHHOLZ, CLIP BAKER BREA Primary Care Unavailable AICHHOLZ, CLIP BAKER BREA Admitting Unavailable AICHHOLZ, BREA J Primary Care Physician Yessica SPENCER Unavailable TOSHIA SAM Attending Unavailable MARLENE SOTO Attending Unavailable Aichholdania FORMER HAND, Brea Unavailable Jose M Light MD Primary Care Provider Swapna, [facility] Mariama Chen Attending U navailable Swapna, [facility] Mariama Chen Admitting U navailable Ramses Hair Attending Unavailable Moses Fischer Attending Unavailable Swapna, Mariama Chen Attending Unavailable Gigiboske, Mariama Chen Attending Unavailable Gigiboske, Mariama Chen Attending Unavailable Gigiboske, Mariama Chen Admitting Unavailable Demboske, Mariama Chen Admitting Unavailable Swapna, Mariama Chen Attending Unavailable MD Roby Bob Admitting Unavail able MD Roby Bob Attending Unavail able AICHHOLDania, BREA Attending Unavailable AICHHOLZ, BREA Attending Unavailable AICHHOLZ, BREA Attending Unavailable AICHHOLZ, BREA Attending Unavailable AICHHOLZ, BREA Attending Unavailable AICHHOLZ, BREA Attending Unavailable Aichholz FORMER HAND, Brea Unavailable Jose M Light MD Primary Care Provider Анна FORMER HAND, Brea Unavailable Allergies Allergy Classification Reported Allergen(s) Allergy Type Date of Onset Reaction(s) Facility (1 source) No Known Medication Allergies; Translations: [No Known Medication Allergies] Propensity to adverse reactions (disorder) [facility] Repository Medications Current Medications Medication Drug Class(es) Dates Sig (Normalized) Sig (Original) [id number] 200 actuat albuterol 0.09 mg/actuat metered dose inhaler (11 sources) beta2-Adrenergic Agonist take 2 puff(s) by mouth every four hours as needed Ventolin HFA 108 (90 Base) MCG/ACT inhaler INHALE 2 PUFFS BY MOUTH FOR SHOTNESS OF BREATH EVERY 4 HOURS NEEDED Active albuterol 0.833 mg/ml / ipratropium bromide 0.167 mg/ml inhalation solution (20 sources) Anticholinergic, beta2-Adrenergic Agonist Start: 06-17-2023 take [...] Discontinued (Ineffective) apixaban 5 mg oral tablet (20 sources) Factor Xa Inhibitor Start: 06-28-2023 take 1 tablet by mouth twice daily Eliquis 5 mg oral tablet 5 mg = 1 tab(s), Oral, BID, # 180 tab(s), Refills(s) 3, Pharmacy: [facility] 1155, 175, cm, 06/28/23 10:58:00 EDT, Height/Length Dosing, 114.6, kg, 06/28/23 10:58:00 EDT, Weight Dosing Start Date: 06/28/23 Status: Ordered Start: 06-17-2023 take 2 tablets by [facility] twice daily, then take 1 tablet by mouth twice daily Eliquis 5 MG tablet TAKE TWO TABLETS BY MOUTH TWICE A DAY FOR 6 DAYS, THE TAKE ONE TABLET TWICE A DAY FOR 30 DAYS 06/17/2023 Active aspirin 81 mg delayed release oral tablet (20 sources) Platelet Aggregation Inhibitor, Nonsteroidal Anti-inflammatory Drug Start: 05-09-2024 End: 11-01-2024 take 1 tablet by mouth once daily aspirin (Aspirin Low Dose) 81 MG EC tablet Indications: Type 2 diabetes mellitus without complication, without long-term current use of insulin (CMS/HCC) , Atherosclerosis of aorta (CMS/HCC) Take 1 tablet (81 mg) by mouth Daily 90 tablet 3 08/03/2024 11/01/2024 Active Start: 06-17-2023 Aspirin Low Do se 81 mg oral enteric coated tablet Refills(s) 0 Start Date: 06/17/23 Status: Ordered take 1 tablet by tamar th in the morning Aspirin Low Dose 81 MG EC tablet Take 81 mg by mouth in the morning. 0 Active atorvastatin 40 mg oral tablet (20 sources) HMG-CoA Reductase Inhibitor Start: 05-23-2024 End: 10-11-2024 take 1 tablet by mouth at bedtime atorvastatin (Lipitor) 40 MG tablet Indications: Mixed hyperlipidemia (CMS/HCC) Take 1 tablet (40 mg) by mouth at bedtime 30 tablet 5 07/24/2024 08/23/2024 Active Start: 10-12-2023 take 1 tablet by tamar th once daily atorvastatin (Lipitor) 40 MG tablet Indications: Mixed hyperlipidemia (CMS/HCC) TAKE ONE TABLET BY MOUTH ONCE DAILY 30 tablet 5 10/12/2023 Active Start: 06-17-2023 ATORVASTATIN C ALCIUM 40 MG TABLET ATORVASTATIN CALCIUM 40 MG TABLET Start Date: 06/17/23 Status: Ordered busPIRone hydrochloride 15 mg oral tablet (20 sources) Start: 05-23-2024 End: 08-23-2024 take 1 tablet by mouth in the morning busPIRone (Buspar) 15 MG tablet Indications: Anxiety and depression (CMS/HCC) Take 1 tablet (15 mg) by mouth in the morning and 1 tablet (15 mg) before bedtime. 60 tablet 5 07/24/2024 08/23/2024 Active Start: 06-17-2023 End: 01-07-2024 take 1 tablet by mouth three times daily busPIRone 15 mg Tab 15 mg = 1 tab(s), Oral, TID, # 90 tab(s), Refills(s) 0 Start Date: 06/17/23 Status: Ordered calcium carbonate 1500 mg / cholecalciferol 200 unt oral tablet (12 sources) Vitamin D Start: 05-09-2024 End: 10-06-2024 take 1 tablet by mouth in the morning Calcium Carb-Cholecalciferol 600-5 MG-MCG tablet Indications: Osteopenia after menopause Take 1 tablet by mouth in the morning and 1 tablet before bedtime. 60 tablet 5 09/06/2024 10/06/2024 Active Start: 06-09-2023 take 1 tablet by tamar th in the morning Calcium Carb-Cholecalciferol 600-5 MG-MCG tablet Take 1 tablet by mouth in the morning and 1 tablet before bedtime. 0 06/09/2023 Active celecoxib 200 mg oral capsule (9 sources) Nonsteroidal Anti-inflammatory Drug Start: 06-10-2024 End: 07-10-2024 take 1 capsule by mouth once daily celecoxib (CeleBREX) 200 MG capsule Take 200 mg by mouth Daily 07/05/2024 Active Start: 12-08-2023 End: 01-07-2024 take 1 capsule by mouth in the morning celecoxib (CeleBREX) 200 MG capsule Indications: Arthritis Take 1 capsule (200 mg) by mouth in the morning. 30 capsule 5 12/08/2023 01/07/2024 Active clonazePAM 0.5 mg oral tablet (14 sources) Benzodiazepine Start: 05-11-2024 End: 08-23-2024 take 1 tablet by mouth at bedtime clonazePAM (KlonoPIN) 0.5 MG tablet Indications: Anxiety and depression (CMS/HCC) , Restless leg syndrome , Other insomnia Take 1 tablet (0.5 mg) by mouth at bedtime 30 tablet 2 07/24/2024 08/23/2024 Active Start: 12-05-2023 End: 01-04-2024 take 1 tablet by mouth at bedtime clonazePAM (KlonoPIN) 0.5 MG tablet Indications: Other insomnia , Anxiety and depression (CMS/HCC) , Restless leg syndrome Take 1 tablet (0.5 mg) by mouth at bedtime 30 tablet 1 12/05/2023 01/04/2024 Active Daily Harvinder oral tablet (10 sources) Start: 06-17-2023 Daily Harvinder oral tablet 1 tab(s), Oral, Daily, 30 tab(s), Refill(s) 0 Start Date: 06/17/23 Status: Ordered dicyclomine hydrochloride 10 mg oral capsule (1 source) Anticholinergic Start: 09-25-2023 End: 10-02-2023 take 1 capsule by mouth four times daily Bentyl 10 mg Cap 10 mg = 1 cap(s), Oral, QID, X 7 day(s), # 28 cap(s), Refills(s) 0, Pharmacy: [facility], 175, cm, 09/25/23 18:25:00 EST, Height/Length Dosing, 121, kg, 09/25/23 18:25:00 EST, Weight Dosing Start Date: 09/25/23 Stop Date: 10/02/23 Status: Ordered DULoxetine 60 mg delayed release oral capsule (20 sources) Serotonin and Norepinephrine Reuptake Inhibitor Start: 06-09-2023 End: 08-23-2024 take 1 capsule by mouth once daily DULoxetine (Cymbalta) [address] capsule Indications: Anxiety and depression (CMS/HCC) Take 1 capsule (60 mg) by mouth Daily 30 capsule 5 07/24/2024 08/23/2024 Active ferrous sulfate 325 mg oral tablet (8 sources) Start: 01-19-2024 take 1 tablet by mouth once daily FeroSul 325 (65 Fe) MG tablet Take 1 tablet by mouth Daily 01/19/2024 Active Ferrousal 325 mg oral tablet (2 sources) Start: 01-19-2024 take 1 tablet by mouth once daily Ferrousal 325 mg oral tablet 325 mg = 1 tab(s), Oral, Daily, # 30 tab(s), Refills(s) 6, Pharmacy: [facility], 175, cm, 01/16/24 11:22:00 EDT, Height/Length Dosing, 118, kg, 01/16/24 11:22:00 EDT, Weight Dosing Start Date: 01/19/24 Status: Ordered fluticasone propionate 0.05 mg/actuat metered dose nasal spray (20 sources) Corticosteroid Start: 06-17-2023 take 2 puff(s) by inhalation twice daily Flovent HFA 110 Aerosol = 2 puff(s), Inhalation, BID, # 12 gram, Refills(s) 0 Start Date: 06/17/23 Status: Ordered Start: 06-17-2023 fluticasone Na margaret 0.05 mg/inh [place] 2 spray(s), Nasal, Daily, 16 gram, Refill(s) 0, each nostril Start Date: 06/17/23 Status: Ordered Start: 04-13-2023 take 2 spray(s) nasa l route once daily fluticasone (Flonase) 50 MCG/ACT nasal spray INSTILL 2 SPRAYS IN EACH NOSTRIL ONCE DAILY 04/13/2023 Active take 2 puff(s) by in halation in the morning Flovent HFA 110 MCG/ACT inhaler Inhale 2 puffs in the morning and 2 puffs before bedtime. Active 120 actuat formoterol fumarate 0.0048 mg/actuat / glycopyrrolate 0.009 mg/actuat metered dose inhaler (20 sources) beta2-Adrenergic Agonist Start: 06-17-2023 take 2 puff(s) by inhalation twice daily Bevespi Aerosphere 9 mcg-4.8 mcg/inh inhalation aerosol 2 puff(s), Inhalation, BID, Refill(s) 11 Start Date: 06/17/23 Status: Ordered take 2 puff(s) by in halation in the morning Bevespi Aerosphere 9-4.8 MCG/ACT aerosol Inhale 2 puffs in the morning and 2 puffs before bedtime. Active furosemide 20 mg oral tablet (20 sources) Loop Diuretic Start: 06-09-2023 take 1 tablet by mouth once daily furosemide 20 mg Tab 20 mg = 1 tab(s), Oral, Daily, # 30 tab(s), Refills(s) 0 Start Date: 06/17/23 Status: Ordered gabapentin 300 mg oral capsule (20 sources) Anti-epileptic Agent Start: 05-23-2024 End: 08-23-2024 take 1 capsule by mouth once daily gabapentin (Neurontin) 300 MG capsule Indications: Restless leg syndrome Take 1 capsule (300 mg) by mouth Daily 30 capsule 07/24/2024 08/23/2024 Active Start: 06-17-2023 take 1 capsule by [facility] twice daily gabapentin 300 mg Cap 300 mg = 1 cap(s), Oral, BID, # 60 cap(s), Refills(s) 0 Start Date: 06/17/23 Status: Ordered hydroCHLOROthiazide 25 mg / lisinopril 20 mg oral tablet (20 sources) Thiazide Diuretic, Angiotensin Converting Enzyme Inhibitor Start: 06-17-2023 End: 08-23-2024 take 1 tablet by mouth once daily lisinopril-hydroCHLOROthiazide 20-25 MG tablet Indications: Primary hypertension (CMS/HCC) Take 1 tablet by mouth Daily 30 tablet 07/24/2024 08/23/2024 Active hyoscyamine sulfate 0.125 mg sublingual tablet (8 sources) Start: 12-21-2023 take 1 tablet by mouth every six hours as needed hyoscyamine (Levsin) 0.125 MG SL tablet Take 0.125 mg by mouth every 6 (six) hours if needed for cramping 12/21/2023 Active lamoTRIgine 25 mg oral tablet (20 sources) Mood Stabilizer, Anti-epilepti c Agent Start: 04-10-2024 End: 08-23-2024 take 2 tablets by mouth at bedtime lamoTRIgine (LaMICtal) 25 MG tablet Indications: Anxiety and depression (CMS/HCC) Take 2 tablets (50 mg) by mouth at bedtime 60 tablet 5 07/24/2024 08/23/2024 Active Start: 10-12-2023 take 2 tablets by mo [facility] at bedtime lamoTRIgine (LaMICtal) 25 MG tablet Indications: Anxiety and depression (CMS/HCC) Take 2 tablets (50 mg) by mouth at bedtime 60 tablet 5 10/12/2023 Active Start: 06-17-2023 take 1 tablet by tamar twice daily lamotrigine 25 mg Tab 25 mg = 1 tab(s), Oral, BID, # 60 tab(s), Refills(s) 0 Start Date: 06/17/23 Status: Ordered Multiple Vitamin (Multivitamin) tablet (9 sources) Start: 10-04-2024 End: 11-03-2024 take 1 tablet by mouth once daily Multiple Vitamin (Multivitamin) tablet Indications: Gastroesophageal reflux disease without esophagitis Take 1 tablet by mouth Daily 30 tablet 5 10/04/2024 11/03/2024 Active Start: 05-09-2024 End: 10-04-2024 take 1 tablet by mouth once daily Multiple Vitamin (Multivitamin) tablet Take 1 tablet by mouth Daily 05/09/2024 10/04/2024 Discontinued Start: 05-09-2024 take 1 tablet by [facility] once daily Multiple Vitamin (Multivitamin) tablet Take 1 tablet by mouth Daily 05/09/2024 Active ondansetron 4 mg disintegrating oral tablet (8 sources) Serotonin-3 Receptor Antagonist Start: 12-21-2023 take 1 tablet by mouth every eight hours as needed for nausea and vomiting ondansetron ODT (Zofran-ODT) 4 MG disintegrating tablet Take 4 mg by mouth every 8 (eight) hours if needed for nausea or vomiting 12/21/2023 Active pantoprazole 40 mg delayed release oral tablet (10 sources) Proton Pump Inhibitor Start: 07-06-2024 End: 11-03-2024 take 1 tablet by mouth before mealtime pantoprazole (ProtoNix) 40 MG EC tablet Indications: Gastroesophageal reflux disease without esophagitis Take 1 tablet (40 mg) by mouth in the morning. Take before meals. Do not crush, chew, or split.. 30 tablet 5 10/04/2024 11/03/2024 Active pioglitazone 15 mg oral tablet (20 sources) Peroxisome Proliferator Receptor alpha Agonist, Peroxisome Proliferator Receptor gamma Agonist, Thiazolidinedione Start: 05-23-2024 End: 08-23-2024 take 1 tablet by mouth once daily pioglitazone (Actos) 15 MG tablet Indications: Type 2 diabetes mellitus without complication, without long-term current use of insulin ([facility]) Take 1 tablet (15 mg) by mouth Daily 30 tablet 5 07/24/2024 08/23/2024 Active Start: 06-17-2023 End: 01-07-2024 take 1 tablet by mouth once daily pioglitazone 15 mg Tab 15 mg = 1 tab(s), Oral, Daily, # 30 tab(s), Refills(s) 0 Start Date: 06/17/23 Status: Ordered Potassium Chloride (20 sources) Start: 06-17-2023 Potassium Chlo ride (Bfa-Wayl-Jtc 10) 10 mEq oral tablet, extended release Refills(s) 0 Start Date: 06/17/23 Status: Ordered take 1 tablet by mouth in the mo rning potassium chloride CR (Klor-Con) 10 MEQ ER tablet Take 10 mEq by mouth in the morning. Active pramipexole dihydrochloride 0.5 mg oral tablet (20 sources) Nonergot Dopamine Agonist Start: 06-17-2023 End: 08-23-2024 take 1 tablet by mouth at bedtime pramipexole (Mirapex) 0.5 MG tablet Indications: Restless leg syndrome Take 1 tablet (0.5 mg) by mouth at bedtime 30 tablet 5 07/24/2024 08/23/2024 Active theophylline 300 mg extended release oral tablet (20 sources) Methylxanthine Start: 06-09-2023 take 1 tablet by mouth every twelve hours theophylline 300 mg ER Tab 300 mg = 1 tab(s), Oral, q12hr, # 60 tab(s), Refills(s) 0 Start Date: 06/17/23 Status: Ordered traZODone hydrochloride 50 mg oral tablet (10 sources) Serotonin Reuptake Inhibitor Start: 06-17-2023 take 1 tablet by mouth once daily at bedtime traZODONE 50 mg Tab 50 mg = 1 tab(s), Oral, Once a day (at bedtime), # 30 tab(s), Refills(s) 0 Start Date: 06/17/23 Status: Ordered Ventolin HFA 90 mcg/inh Aerosol-Adpt (10 sources) Start: 06-17-2023 take 1 puff(s) by inhalation four times daily for wheezing Ventolin HFA 90 mcg/inh Aerosol-Adpt 1 puff(s), Inhalation, QID for wheezing, 18 gram, Refill(s) 0 Start Date: 06/17/23 Status: Ordered Zofran ODT 4 mg Tab-Dis (6 sources) Start: 09-25-2023 take 1 tablet by mouth every eight hours Zofran ODT 4 mg Tab-Dis 4 mg = 1 tab(s), Oral, q8hr, # 12 tab(s), Refills(s) 0, Pharmacy: [facility] 1155, 175, cm, 09/25/23 18:25:00 EST, [...] Problem Classification Problem Date Documented Date Episodic/Chronic Anxiety disorders (17 sources) Generalized anxiety disorder; Translations: [Mixed anxiety [...] Episodic Chronic obstructive pulmonary disease and bronchiectasis (20 sources) Chronic obstructive pulmonary disease with (acute) exacerbation; Translations: [Chronic obstructive pulmonary disease, unspecified] Onset: 12-24-2022 Chronic Deficiency and other anemia (1 source) Iron deficiency anemia; Translations: [Iron deficiency anemia, unspecified] Onset: 07-23-2024 Episodic Diabetes mellitus with complications (4 sources) Type 2 diabetes mellitus with other specified complication; Translations: [TYPE 2 DM W/OTHER SPEC COMPLICATION] Onset: 01-03-2023 Chronic Diabetes mellitus without complication (16 sources) Type 2 diabetes mellitus without complication; Translations: [Type 2 diabetes mellitus without complications] Onset: 06-16-2023 Chronic Disorders of lipid metabolism (16 sources) Mixed hyperlipidemia; Translations: [Hyperlipidemia, unspecified] Onset: 03-31-2022 10-12-2023 Chronic Esophageal disorders (10 sources) Gastroesophageal reflux disease without esophagitis; Translations: [Gastro-esophageal reflux disease without esophagitis] Onset: 05-23-2024 05-23-2024 Chronic Essential hypertension (15 sources) Essential (primary) hypertension; Translations: [Essential hypertension] Onset: 02-26-2023 Chronic Mood disorders (1 source) Depressive disorder; Translations: [Depression, unspecified] Onset: 06-16-2023 Chronic Nausea and vomiting (1 source) Nausea and vomiting; Translations: [Nausea with vomiting, unspecified] Onset: 09-25-2023 Episodic Nonspecific chest pain (2 sources) Chest pain; Translations: [Chest pain, unspecified] Onset: 06-16-2023 Episodic Osteoarthritis (12 sources) Arthritis; Translations: [Unspecified osteoarthritis, unspecified site] Onset: 12-05-2023 12-05-2023 Chronic Other aftercare (1 source) MCC (current) use of aspirin; Translations: [ROLL FORMER CURRENT USE OF ASPIRIN] Onset: 02-26-2023 Episodic Other aftercare (1 source) Other long term care pharmacist (current) drug therapy; Translations: [OTH LONGTERM CURRENT DRUG THERAPY] Onset: 02-26-2023 Episodic Other aftercare (1 source) Long-term current use of drug therapy; Translations: [Other assisted (current) drug therapy] Onset: 06-16-2023 Episodic Other hereditary and degenerative nervous system conditions (1 source) Restless legs syndrome; Translations: [RESTLESS LEGS SYNDROME] Onset: 02-26-2023 Chronic Other hereditary and degenerative nervous system conditions (15 sources) Restless legs; Translations: [Restless legs syndrome] [...] Chronic Other nutritional; endocrine; and metabolic disorders (13 sources) Body mass index 30+ - obesity; Translations: [Body mass index (BMI) 37.0-37.9, adult] Onset: 12-05-2023 12-05-2023 Chronic Other nutritional; endocrine; and metabolic disorders (11 sources) Severe obesity; Translations: [Morbid (severe) obesity due to excess calories] Onset: 10-19-2023 10-19-2023 Chronic Peripheral and visceral atherosclerosis (9 sources) Atherosclerosis of aorta; Translations: [Atherosclerosis of aorta] Onset: 05-23-2024 08-03-2024 Chronic Pulmonary heart disease (20 sources) Other pulmonary embolism without acute cor pulmonale; Translations: [Pulmonary embolism] Onset: 06-16-2023 Episodic Residual codes; unclassified (15 sources) Insomnia; Translations: [Other insomnia] Onset: 10-19-2023 12-05-2023 Chronic Residual codes; unclassified (13 sources) Obstructive sleep apnea syndrome; Translations: [Obstructive sleep apnea (adult) (pediatric)] Onset: 10-19-2023 12-05-2023 Chronic Respiratory failure; insufficiency; arrest (adult) (11 sources) Dependence on supplemental oxygen; Translations: [Chronic respiratory failure with hypoxia] Onset: 02-05-2023 Chronic Screening and history of mental health and substance abuse codes (5 sources) Personal history of nicotine dependence; Translations: [PERSONAL HISTORY OF NICOTINE DEPEND] Onset: 03-31-2022 Episodic Substance-related disorders (20 sources) Nicotine dependence, cigarettes, uncomplicated; Translations: [Nicotine dependence] Onset: 12-24-2022 Chronic Comment on above: Added secondary to d ocumentation in Social History. Past or Other Problems Problem Classification Problem Date Documented Da te Episodic/Chronic Abdominal pain (13 sources) Epigastric pain; Translations: [Unspecified abdominal pain] Onset: 03-26-2022 Resolved: 07-24-2024 Episodic Malaise and fatigue (8 sources) Fatigue; Translations: [Other fatigue] Onset: 05-23-2024 05-23-2024 Episodic Nonmalignant breast conditions (8 sources) Mastodynia; Translations: [Mastodynia] Onset: 02-21-2024 Resolved: 07-24-2024 07-24-2024 Episodic Nutritional deficiencies (8 sources) Vitamin deficiency; Translations: [Vitamin deficiency, unspecified] Onset: 04-10-2024 04-10-2024 Episodic Other aftercare (4 sources) Encounter for therapeutic drug level monitoring; Translations: [ENC THERAPEUTC DRUG LEVL MONITORING] Onset: 11-04-2022 Episodic Other bone disease and musculoskeletal deformities (9 sources) Postmenopausal osteopenia; Translations: [Other specified disorders of bone density and structure, unspecified site] Onset: 03-08-2024 03-08-2024 Episodic Other lower respiratory disease (11 sources) Dyspnea on exertion; Translations: [Other forms of dyspnea] Onset: 12-24-2022 12-05-2023 Episodic Other nutritional; endocrine; and metabolic disorders (8 sources) Obesity caused by energy imbalance; Translations: [Morbid (severe) obesity due to excess calories] Onset: 05-23-2024 Resolved: 07-24-2024 07-24-2024 Chronic Other screening for suspected conditions (not mental disorders or infectious disease) (12 sources) Encounter for screening mammogram for malignant neoplasm of breast; Translations: [Patient encounter status] Onset: 04-30-2022 Episodic Other upper respiratory infections (8 sources) Acute maxillary sinusitis; Translations: [Acute maxillary sinusitis, unspecified] Onset: 01-10-2024 Resolved: 07-24-2024 07-24-2024 Episodic Residual codes; unclassified (2 sources) Edema, unspecified; Translations: [Edema, unspecified] Onset: 12-24-2022 Episodic Residual codes; unclassified (11 sources) Bilateral lower limb edema; Translations: [Localized edema] Onset: 12-24-2022 12-05-2023 Episodic Results Test Name Value Interpretation Reference Range Facility CBC w/ Auto Diffon 4 Basophils/100 WBC (Bld) 0.6 % Normal 0.0-2.0 [facility] Comment on above: Performed By: #### [id number] #### [facility] [address] [place] [address] Basophils/Leukocytes Auto (Bld) [Pure # fraction] 0.0 E9/L Normal 0.0-0.2 [facility] Comment on above: Performed By: #### [id number] #### [facility] [address] [place] [address] Eosinophils (Bld) [#/Vol] 0.2 E9/L Normal 0.0-0.5 [facility] Comment on above: Performed By: #### [id number] #### [facility] [address] [place] [address] Eosinophils/100 WBC (Bld) 2.4 % Normal 0.0-8.0 [facility] Comment on above: Performed By: #### [id number] #### [facility] [address] [place] [address] Erythrocyte distribution width (RBC) [Ratio] 15.3 % High 10.9-14.2 [facility] Comment on above: Performed By: #### [id number] #### [facility] [address] [place] [address] Hematocrit (Bld) [Volume fraction] 42.4 % Normal 34.0-46.0 [facility] Comment on above: Performed By: #### [id number] #### [facility] [address] [place] [id number] Hemoglobin (Bld) [Mass/Vol] 14.4 g/dL Normal 12.0-16.0 [facility] Comment on above: Performed By: #### 2 [id number] #### [facility] [address] [place] [address] Lymphocytes (Bld) [#/Vol] 1.6 E9/L Normal 1.0-4.0 [facility] Comment on above: Performed By: #### 2 925160 #### [facility] [address] [place] [address] Lymphocytes/100 WBC (Bld) 20.2 % Normal 14.0-50.0 [facility] Comment on above: Performed By: #### 2 826134 #### [facility] [address] [place] [address] MCH (RBC) [Entitic mass] 30.3 pg Normal 27.0-34.0 [facility] Comment on above: Performed By: #### 2 213815 #### [facility] [address] [place] [address] MCHC (RBC) [Mass/Vol] 34.0 g/dL Normal 31.4-36.0 [facility] Comment on above: Performed By: #### 2 908884 #### [facility] [address] [place] [address] MCV (RBC) [Entitic vol] 89.1 fL Normal 80.0-100.0 [facility] Comment on above: Performed By: #### 2 404282 #### [facility] [address] [place] [address] Monocytes (Bld) [#/Vol] 0.5 E9/L Normal 0.2-1.0 [facility] Comment on above: Performed By: #### 2 986831 #### [facility] [address] [place] [address] Neutrophils (Bld) [#/Vol] 5.4 E9/L Normal 2.0-7.5 [facility] Comment on above: Performed By: #### 2 651386 #### [facility] [address] [place] [address] Neutrophils/100 WBC (Bld) 69.8 % Normal 36.0-75.0 [facility] Comment on above: Performed By: #### 2 321027 #### [facility] [address] [place] [address] Platelet mean volume (Bld) [Entitic vol] 10.8 fL Normal 6.4-10.8 [facility] Comment on above: Performed By: #### 2 361603 #### [facility] [address] [place] [address] Platelets (Bld) [#/Vol] 157.0 E9/L Normal 150.0-500.0 [facility] Comment on above: Performed By: #### 2 600672 #### [facility] [address] [place] [address] RBC (Bld) [#/Vol] 4.8 E12/L Normal 4.3-5.9 [facility] Comment on above: Performed By: #### 2 269793 #### [facility] [address] [place] [address] WBC corrected for nucl RBC Auto (Bld) [#/Vol] 7.8 E9/L Normal 4.0-11.0 [facility] Comment on above: Performed By: #### 2 945741 #### [facility] [address] [place] [address] CHEMISTRYOrdered By: SYSTEM SYSTEM on 07-16-2024 Ferritin [Mass/Vol] 76 ng/mL Normal 11 - 307 ng/mL Remisol Chem Iron [Mass/Vol] 74 ug/dL Normal 35 - 153 mcg/dL Remisol Chem Iron binding capacity [Mass/Vol] 329 ug/dL Normal 250 - 400 mcg/dL Remisol Chem Iron saturation [Mass fraction] 22 % Normal 20 - 50 % Remisol Chem Transferrin [Mass/Vol] 235 mg/dL Normal 200 - 370 mg/dL Remisol Chem Ferritinon 07-16-2024 Ferritin [Mass/Vol] 76 ng/mL Normal 11-307 [facility] Comment on above: Performed By: #### 2 170557 #### [facility] [address] [place] [address] HEMATOLOGYOrdered By: SYSTEM SYSTEM on 07-16-2024 Basophils/100 WBC (Bld) 0.6 % Normal 0.0 - 2.0 % Remisol Heme Basophils/Leukocytes Auto (Bld) [Pure # fraction] 0.0 E9/L Normal 0.0 - 0.2 E9/L Remisol Heme Eosinophils (Bld) [#/Vol] 0.2 E9/L Normal 0.0 - 0.5 E9/L Remisol Heme Eosinophils/100 WBC (Bld) 2.4 % Normal 0.0 - 8.0 % Remisol Heme Erythrocyte distribution width (RBC) [Ratio] 15.3 % High 10.9 - 14.2 % Remisol Heme Hematocrit (Bld) [Volume fraction] 42.4 % Normal 34.0 - 46.0 % Remisol Heme Hemoglobin (Bld) [Mass/Vol] 14.4 g/dL Normal 12.0 - 16.0 gm/dL Remisol Heme Lymphocytes (Bld) [#/Vol] 1.6 E9/L Normal 1.0 - 4.0 E9/L Remisol Heme Lymphocytes/100 WBC (Bld) 20.2 % Normal 14.0 - 50.0 % Remisol Heme MCH (RBC) [Entitic mass] 30.3 pg Normal 27.0 - 34.0 pg Remisol Heme MCHC (RBC) [Mass/Vol] 34.0 g/dL Normal 31.4 - 36.0 gm/dL Remisol Heme MCV (RBC) [Entitic vol] 89.1 fL Normal 80.0 - 100.0 fL Remisol Heme Monocytes (Bld) [#/Vol] 0.5 E9/L Normal 0.2 - 1.0 E9/L Remisol Heme Monocytes/100 WBC (Bld) 7.0 % Normal 4.0 - 14.0 % Remisol Heme Neutrophils (Bld) [#/Vol] 5.4 E9/L Normal 2.0 - 7.5 E9/L Remisol Heme Neutrophils/100 WBC (Bld) 69.8 % Normal 36.0 - 75.0 % Remisol Heme Platelet mean volume (Bld) [Entitic vol] 10.8 fL Normal 6.4 - 10.8 fL Remisol Heme Platelets (Bld) [#/Vol] 157.0 E9/L Normal 150.0 - 500.0 E9/L Remisol Heme RBC (Bld) [#/Vol] 4.8 E12/L Normal 4.3 - 5.9 E12/L Remisol Heme WBC corrected for nucl RBC Auto (Bld) [#/Vol] 7.8 E9/L Normal 4.0 - 11.0 E9/L Remisol Heme Ironon 07-16-2024 Iron [Mass/Vol] 74 microgram/dL Normal 35-153 [facility] Comment on above: Performed By: #### 2 493432 #### [facility] [address] [place] [address] Iron Saturationon 07-16-2024 Iron binding capacity [Mass/Vol] 329 microgram/dL Normal 250-400 [facility] Comment on above: Performed By: #### 2 479893 #### [facility] [address] [place] [address] Iron saturation [Mass fraction] 22 % Normal 20-50 [facility] Comment on above: Performed By: #### 2 176875 #### [facility] [address] [place] [address] Transferrinon 07-16-2024 Transferrin [Mass/Vol] 235 mg/dL Normal 200-370 [facility] Comment on above: Performed By: #### 2 852664 #### [facility] [address] [place] [address] Methylmalonic Acidon 024 Methylmalonate [Moles/Vol] 301 nmol/L Invalid Interpretation Code 0-378 [facility] Comment on above: Result Comment: This test was developed and its performance characteristics determined by [employer]. It has not been cleared or approved by the Food and Drug Administration. Performed at: [address] [id number] MD Tony Laird Performed By: #### 1 [id number], 0263132, 9558839, 8115680, 1166421, 8971017, 4962408 ####[facility] [address] [place] [address] Oncology Progress Noteon Oncology Progress Note Chief Complaint PE Pt states she has had a couple visits to hosp. [facility]. Pt just has ques on how blood work results are. Diagnoses 1. History of pulmonary embolism (Z86.711: Personal history of pulmonary embolism) Oncological History/ROS/PE/Assess ment and Plan Aliya was referred to our hematology office at [facility] for Thrombophilia work up and decision about duration of anticoagulation for the acute PE diagnosed on . She is a 57-year-old female cigarette smoker with history of hypertension, hdz-ubmobje-rsicjeybp diabetes mellitus, obesity, chronic hypoxic respiratory failure on 3 L home oxygen, and depression who presented on 06/16/23 to [facility] with complaints of [...] the time denies any dizziness or lightheadedness crablanca marcelino sees pulmonology next month and is due for her annual low dose CT scan has had some GI issues in the past with pain, cramping a lot. has had colonoscopy at [facility] Physical Examination General: alert, no acute [...] Contact Information Swapna ANGUIANO, Mariama Chen, ONC [facility] [address] [place] [phone] Additional Instructions: iron studies, b12, folate, mm (more content not included)... Normal [facility] CHEMISTRYOrdered By: SYSTEM SYSTEM on 01-16-2024 [...] Treatmenton 12-29 Consent for Treatment [id number]#1 .00TIFF Normal [facility] Consent for Treatment [id number] 403 [id number]#1 .00TIFF Normal [facility] Ferritinon 01-16-2024 Ferritin [Mass/Vol] 63 ng/mL Normal 11-307 [facility] Comment on above: Performed By: #### 1 0132427, 5793430, 6595110, 8584551, 5526724, 4312494, 6457626 ####[facility] [address] [place] [address] Folateon 01-16-2024 Folate [Mass/Vol] 15.3 ng/mL Normal >=6.7 [facility] Comment on above: Performed By: #### 1 8839757, 0807266, 4489686, 5847141, 7600038, 7494288, 9745235 ####[facility] [address] [place] [address] Ironon 01-16-2024 Iron [Mass/Vol] 63 microgram/dL Normal 35-153 [facility] Comment on above: Performed By: #### 1 1966281, 9749214, 3477161, 9670433, 3011273, 5385901, 5641234 ####[facility] [address] [place] [address] Iron Saturationon 01-16-2024 Iron binding capacity [Mass/Vol] 365 microgram/dL Normal 250-400 [facility] Comment on above: Performed By: #### 1 8158782, 8744625, 2290560, 5213726, 2575167, 2673203, 5789373 ####[facility] [address] [place] [address] Iron saturation [Mass fraction] 17 % Low 20-50 [facility] Comment on above: Performed By: #### 1 8657377, 4424671, 9387371, 2756484, 1842165, 9339321, 5909895 ####[facility] [address] [place] [address] Transferrinon 01-16-2024 Transferrin [Mass/Vol] 261 mg/dL Normal 200-370 [facility] Comment on above: Performed By: #### 1 1221623, 1145944, 5024433, 5142867, 9930525, 6789521, 0438270 ####[address] [address] Vit B12on 01-16-2024 Cobalamin (Vitamin B12) [Mass/Vol] 420 pg/mL Normal 50-1500 [facility] Comment on above: Performed By: #### 1 1936348, 2761367, 5255948, 6544673, 0255124, 8890954, 1100922 ####[address] [address] CBC w/ Auto Diffon 4 Basophils/100 WBC (Bld) 0.6 % Normal 0.0-2.0 [facility] Comment on above: Performed By: #### 1 2002207, 8053196, 0215085, 6548926 ####[address] [address] Basophils/Leukocytes Auto (Bld) [Pure # fraction] 0.0 E9/L Normal 0.0-0.2 [facility] Comment on above: Performed By: #### 1 7752031, 9766990, 9265045, 6550093 ####[address] [address] Eosinophils (Bld) [#/Vol] 0.2 E9/L Normal 0.0-0.5 [facility] Comment on above: Performed By: #### 1 0062182, 0858282, 0000421, 6105452 ####[address] [place] [address] Eosinophils/100 WBC (Bld) 3.0 % Normal 0.0-8.0 [facility] Comment on above: Performed By: #### 1 9577574, 0224718, 2110710, 0880570 ####[address] [address] Erythrocyte distribution width (RBC) [Ratio] 15.7 % High 10.9-14.2 [facility] Comment on above: Performed By: #### 1 2933896, 3661395, 1913748, 6031976 ####[address] [address] Hematocrit (Bld) [Volume fraction] 36.9 % Normal 34.0-46.0 [facility] Comment on above: Performed By: #### 1 9425732, 1774923, 0954278, 9802293 ####[address] [address] Hemoglobin (Bld) [Mass/Vol] 12.4 g/dL Normal 12.0-16.0 [facility] Comment on above: Performed By: #### 1 6536594, 4027196, 0790491, 1814117 ####[address] [address] Lymphocytes (Bld) [#/Vol] 1.4 E9/L Normal 1.0-4.0 [facility] Comment on above: Performed By: #### 1 8039442, 2136598, 0291251, 9014107 ####[address] [address] Lymphocytes/100 WBC (Bld) 20.7 % Normal 14.0-50.0 [facility] Comment on above: Performed By: #### 1 8548994, 2705498, 3908577, 8122881 ####[address] [address] MCH (RBC) [Entitic mass] 29.5 pg Normal 27.0-34.0 [facility] Comment on above: Performed By: #### 1 8408552, 0067339, 4108271, 9513286 ####[address] [address] MCHC (RBC) [Mass/Vol] 33.6 g/dL Normal 31.4-36.0 [facility] Comment on above: Performed By: #### 1 0809145, 7954855, 2194245, 2032733 ####[place] [address] MCV (RBC) [Entitic vol] 87.9 fL Normal 80.0-100.0 [facility] Comment on above: Performed By: #### 1 8082013, 0420036, 6324997, 1566737 ####[address] [address] Monocytes (Bld) [#/Vol] 0.6 E9/L Normal 0.2-1.0 [facility] Comment on above: Performed By: #### 1 8158925, 7524357, 2941651, 2529916 ####[address] [address] Neutrophils (Bld) [#/Vol] 4.5 E9/L Normal 2.0-7.5 [facility] Comment on above: Performed By: #### 1 5710383, 2070096, 9592487, 3424311 ####[address] [address] Neutrophils/100 WBC (Bld) 66.7 % Normal 36.0-75.0 [facility] Comment on above: Performed By: #### 1 9679517, 7223019, 6563574, 8589124 ####[address] [address] Platelet mean volume (Bld) [Entitic vol] 10.3 fL Normal 6.4-10.8 [facility] Comment on above: Performed By: #### 1 5171303, 8576693, 2230162, 3628012 ####[address] [place] [address] Platelets (Bld) [#/Vol] 196.0 E9/L Normal 150.0-500.0 [facility] Comment on above: Performed By: #### 1 3213149, 6276391, 9619841, 4024716 ####[facility] [address] [place] [address] RBC (Bld) [#/Vol] 4.2 E12/L Low 4.3-5.9 [facility] Comment on above: Performed By: #### 1 4959126, 5185652, 4400511, 8611043 ####[facility] [address] [place] [address] WBC corrected for nucl RBC Auto (Bld) [#/Vol] 6.8 E9/L Normal 4.0-11.0 [facility] Comment on above: Performed By: #### 1 8789611, 6723857, 7266403, 1060375 ####[facility] [address] [place] [address] CHEMISTRYOrdered By: SYSTEM SYSTEM on 01-09-2024 Albumin [...] 01-09-2024 Albumin [Mass/Vol] 4.1 g/dL Normal 3.3-5.0 [facility] Comment on above: Performed By: #### 1 6142883, 8456284, 4207901, 1240295 ####[facility] [address] [place] [address] Albumin/Globulin (S) [Mass conc ratio] 1.2 Normal 1.1-2.2 [facility] Comment on above: Performed By: #### 1 2470075, 2590102, 4663759, 8065574 ####[facility] [address] [place] [address] ALP [Catalytic activity/Vol] 61 Int._Unit/L Normal 21-98 [facility] Comment on above: Performed By: #### 1 0165823, 2050491, 1928796, 8011570 ####[facility] [address] [place] [address] ALT No additional P-5'-P [Catalytic activity/Vol] 17 Int._Unit/L Normal 6-46 [facility] Comment on above: Performed By: #### 1 5058322, 2114308, 0700928, 7013411 ####[facility] [address] [place] [address] Anion gap [Moles/Vol] 12 mmol/L Normal 6-16 [facility] Comment on above: Performed By: #### 1 2617632, 1870826, 7705760, 4946999 ####[facility] [address] [place] [address] AST [Catalytic activity/Vol] 18 Int._Unit/L Normal 5-43 [facility] Comment on above: Performed By: #### 1 5931326, 5846679, 5964398, 0285523 ####[facility] [address] [place] [address] Bilirubin [Mass/Vol] 0.4 mg/dL Normal 0.0-1.1 [facility] Comment on above: Performed By: #### 1 9608108, 3127574, 8334041, 4642622 ####[facility] [address] [place] [address] Calcium [Mass/Vol] 9.8 mg/dL Normal 8.9-11.1 [facility] Comment on above: Performed By: #### 1 4062292, 5101586, 3410699, 7418285 ####[facility] [address] [place] [address] Chloride [Moles/Vol] 101 mmol/L Normal 101-111 [facility] Comment on above: Performed By: #### 1 1219300, 6602853, 5568566, 9123388 ####[facility] [address] [place] [address] CO2 [Moles/Vol] 28 mmol/L Normal 21-31 [facility] Comment on above: Performed By: #### 1 4021144, 3108144, 8738761, 5438568 ####[facility] [address] [place] [address] Creatinine [Mass/Vol] 1.0 mg/dL Normal 0.5-1.3 [facility] Comment on above: Performed By: #### 1 4929662, 0357224, 8603614, 9077153 ####[facility] [address] [place] [address] Globulin (S) [Mass/Vol] 3.4 g/dL Normal 1.4-4.0 [facility] Comment on above: Performed By: #### 1 9150998, 0410317, 0555822, 1651595 ####[facility] [address] [place] [address] Glucose [Mass/Vol] 98 mg/dL Normal 55-199 [facility] Comment on above: Performed By: #### 1 5231594, 7548149, 1074466, 2931367 ####[facility] [address] [place] [address] Potassium [Moles/Vol] 4.3 mmol/L Normal 3.5-5.3 [facility] Comment on above: Performed By: #### 1 7346062, 4244136, 0533930, 7513050 ####[facility] [address] [place] [address] Protein [Mass/Vol] 7.5 g/dL Normal 6.0-7.8 [facility] Comment on above: Performed By: #### 1 3874388, 5525789, 7182784, 7693077 ####[facility] [address] [place] [address] Sodium [Moles/Vol] 137 mmol/L Normal 135-145 [facility] Comment on above: Performed By: #### 1 8155915, 3180927, 4063873, 6540928 ####[facility] [address] [place] [address] Urea nitrogen [Mass/Vol] 21 mg/dL Normal 5-21 [facility] Comment on above: Performed By: #### 1 4626679, 8438144, 7814917, 8490190 ####[facility] [address] [place] [address] Urea nitrogen/Creatinine [Mass ratio] 21 No Units High 10-20 [facility] Comment on above: Performed By: #### 1 1152051, 7391282, 7352194, 1044347 ####[facility] [address] [place] [address] COAGULATIONOrdered By: Catina Miles on 01-09-2024 Fibrin D-dimer FEU (PPP) [Mass/Vol] 404 ng/mL FEU Normal 215 - 500 ng/mL FEU [facility] Auto Coag Comment on [...] Treatmenton 12-29 Consent for Treatment [id number] 403 [id number]#1 .00TIFF Normal [facility] D-Dimeron 01-09-2024 Fibrin D-dimer FEU (PPP) [Mass/Vol] 404 [id number] Normal 215-500 [facility] Comment on above: Result Comment: This [...] infections Liver cirrhosis Performed By: #### 1 3659635, 3978220, 1039134, 9774015 ####[facility] [address] [place] [address] HEMATOLOGYOrdered By: SYSTEM SYSTEM on 01-09-2024 Basophils/100 [...] 01-09-2024 eGFR 65 mL/min/1.73 m2 Normal >=59 [facility] Comment on above: Order Comment: Order added by Discern Expert. Performed By: #### 1 4547510, 8742829, 7822276, 0766292 ####[facility] [address] [place] [address] CT Abdomen/Pelvis w/ Contras ton 11-24-2023 CT [...] 11/24/2023 14:25 EST by Vincenzo Colvin DO Normal [facility] Auto Diffon 09-25-2023 Basophils/100 WBC (Bld) 0.6 % Normal 0.0-2.0 [facility] Comment on above: Order Comment: Order Added by Discern Expert. Performed By: #### 2 349132, 3670783, 8889859, 1831358, 65385262, 4066554 ####[address] [address] Basophils/Leukocytes Auto (Bld) [Pure # fraction] 0.1 E9/L Normal 0.0-0.2 [facility] Comment on above: Order Comment: Order Added by Discern Expert. Performed By: #### 2 433373, 2129545, 4397265, 2532977, 61998488, 3086918 ####[place] [address] [place] [address] Eosinophils/100 WBC (Bld) 1.5 % Normal 0.0-8.0 [facility] Comment on above: Order Comment: Order Added by Discern Expert. Performed By: #### 2 211725, 4795861, 2501495, 1240654, 81944401, 3965179 ####[facility] [address] [place] [address] Eosinophils/Leukocytes Auto (Bld) [Pure # fraction] 0.1 E9/L Normal 0.0-0.5 [facility] Comment on above: Order Comment: Order Added by Discern Expert. Performed By: #### 2 099072, 9369663, 9221802, 7654361, 00970645, 8940738 ####[place] [address] [place] [address] Lymphocytes/100 WBC (Bld) 15.3 % Normal 14.0-50.0 [facility] Comment on above: Order Comment: Order Added by Discern Expert. Performed By: #### 2 540944, 1469167, 1956233, 1789611, 04981724, 4475844 ####[address] [address] Lymphocytes/Leukocytes Auto (Bld) [Pure # fraction] 1.5 E9/L Normal 1.0-4.0 [facility] Comment on above: Order Comment: Order Added by Discern Expert. Performed By: #### 2 938230, 0901467, 7007934, 6691439, 53306281, 8709220 ####[address] [address] Monocytes/100 WBC (Bld) 7.4 % Normal 4.0-14.0 [facility] Comment on above: Order Comment: Order Added by Discern Expert. Performed By: #### 2 527532, 0632318, 3594702, 4404379, 59488703, 8973154 ####[address] [address] Monocytes/Leukocytes Auto (Bld) [Pure # fraction] 0.7 E9/L Normal 0.2-1.0 [facility] Comment on above: Order Comment: Order Added by Discern Expert. Performed By: #### 2 595755, 8386800, 3869579, 0512270, 53355750, 1169677 ####[address] [address] Neutrophils/100 WBC (Bld) 75.2 % High 36.0-75.0 [facility] Comment on above: Order Comment: Order Added by Discern Expert. Performed By: #### 2 952224, 5771665, 7384282, 2672736, 28648638, 8939077 ####[address] [address] Neutrophils/Leukocytes Auto (Bld) [Pure # fraction] 7.1 E9/L Normal 2.0-7.5 [facility] Comment on above: Order Comment: Order Added by Discern Expert. Performed By: #### 2 803649, 2294737, 5998197, 2568187, 91917596, 0876880 ####[facility] [address] [place] [address] BMPon 09-25-2023 Creatinine [Mass/Vol] 0.9 mg/dL Normal 0.5-1.3 [facility] Comment on above: Performed By: #### 2 110965, 2402316, 4910374, 8634870, 34735114, 5238333 ####[facility] [address] [place] [address] Urea nitrogen [Mass/Vol] 20 mg/dL Normal 5-21 [facility] Comment on above: Performed By: #### 2 360011, 4364582, 4231438, 2117375, 28790838, 9956630 ####[facility] [address] [place] [address] Urea nitrogen/Creatinine [Mass ratio] 22 No Units High 10-20 [facility] Comment on above: Performed By: #### 2 369413, 6783459, 3734449, 1688207, 69072885, 8259856 ####[facility] [address] [place] [address] Anion gap [Moles/Vol] 10 mmol/L Normal 6-16 [facility] Comment on above: Performed By: #### 2 044040, 9350126, 0075615, 6446900, 08520962, 2957746 ####[facility] [address] [place] [address] Calcium [Mass/Vol] 10.4 mg/dL Normal 8.9-11.1 [facility] Comment on above: Performed By: #### 2 373071, 4573951, 0469299, 9929227, 95137205, 5187100 ####[facility] [address] [place] [address] Chloride [Moles/Vol] 101 mmol/L Normal 101-111 [facility] Comment on above: Performed By: #### 2 860839, 0141349, 5888837, 7935973, 26661630, 1932178 ####[facility] [address] [place] [address] CO2 [Moles/Vol] 27 mmol/L Normal 21-31 [facility] Comment on above: Performed By: #### 2 561604, 6633629, 4610214, 3613905, 56667714, 7718403 ####[facility] [address] [place] [address] Glucose [Mass/Vol] 155 mg/dL Normal 55-199 [facility] Comment on above: Result Comment: If t his glucose result represents a fasting glucose, interpretation should refer to the following reference range: 55-99 mg/dL Performed By: #### 2 863799, 1377117, 0538569, 0660806, 16039918, 1498134 ####[facility] [address] [place] [address] Potassium [Moles/Vol] 4.0 mmol/L Normal 3.5-5.3 [facility] Comment on above: Performed By: #### 2 252658, 3498238, 8789340, 4848700, 48101180, 8197611 ####[facility] [address] [place] [address] Sodium [Moles/Vol] 134 mmol/L Low 135-145 [facility] Comment on above: Performed By: #### 2 314946, 2805329, 6410581, 3442131, 80584485, 0335890 ####[facility] [address] [place] [address] CBC w/ Auto Diffon 3 Erythrocyte distribution width (RBC) [Ratio] 15.3 % High 10.9-14.2 [facility] Comment on above: Performed By: #### 2 140321, 2822684, 5733527, 1742057, 22082010, 6133920 ####[place] [address]1457 Hematocrit (Bld) [Volume fraction] 38.4 % Normal 34.0-46.0 [facility] Comment on above: Performed By: #### 2 746116, 4201728, 8804478, 4499644, 87520829, 0250246 ####[place] 3561457 Hemoglobin (Bld) [Mass/Vol] 13.0 g/dL Normal 12.0-16.0 [facility] Comment on above: Performed By: #### 2 605912, 4545929, 4802844, 6497699, 81499939, 3947512 ####[place] [address]1457 MCH (RBC) [Entitic mass] 29.4 pg Normal 27.0-34.0 [facility] Comment on above: Performed By: #### 2 812490, 5827652, 1122244, 5166790, 89278496, 1646046 ####[address] [address] MCHC (RBC) [Mass/Vol] 33.9 g/dL Normal 31.4-36.0 [facility] Comment on above: Performed By: #### 2 481125, 1976224, 0917267, 8574885, 13690990, 7818729 ####[place] [address]1457 MCV (RBC) [Entitic vol] 86.6 fL Normal 80.0-100.0 [facility] Comment on above: Performed By: #### 2 640805, 2153666, 2881800, 6569341, 56169297, 6068887 ####[address] [address] Platelet mean volume (Bld) [Entitic vol] 9.5 fL Normal 6.4-10.8 [facility] Comment on above: Performed By: #### 2 076552, 7878073, 1392558, 2028127, 13458417, 0906433 ####[facility] [address] [place] [address] Platelets (Bld) [#/Vol] 207.0 E9/L Normal 150.0-500.0 [facility] Comment on above: Performed By: #### 2 620635, 4393811, 4968259, 1257938, 77819408, 0896472 ####[facility] [address] [place] [address] RBC (Bld) [#/Vol] 4.4 E12/L Normal 4.3-5.9 [facility] Comment on above: Performed By: #### 2 020729, 8526553, 6957279, 1683721, 09282009, 6828468 ####[facility] [address] [place] [address] WBC corrected for nucl RBC Auto (Bld) [#/Vol] 9.5 E9/L Normal 4.0-11.0 [facility] Comment on above: Performed By: #### 2 120143, 4075572, 3967773, 3197614, 71892313, 3398692 ####[facility] [address] [place] [address] CHEMISTRYOrdered By: SYSTEM SYSTEM on 09-25-2023 Albumin [...] 74 mL/min/1.73 m2 Normal >=59mL/min/1 .73 m2 [facility] Chem S Comment on [...] ratio] 22 mg/mg High 10 - 20 [facility] Remisol Consent for Treatmenton 09-01 Consent for Treatment [id number]#1 .00TIFF Normal [facility] Discharge Instructionson Discharge Instructions [id number]# 1.00TIFF Normal [facility] ED Clinical Summaryon 2022 ED Clinical Summary [place] [id number] ED Clinical Summary Person Information Name: ALIYA MOORE Hilary/[facility] Age: 57 Years : 1965 Sex: Female Language: Hungarian PCP: BREA JJ CNP Marital Status: Visit [...] 09/25/2023 21:57:44 09/25/2023 21:57:44 09/25/2023 21:57:44 ADDRESS: [address] [place] [address] [address] [facility] [phone] PHYS DOC NOTES: MEDICAL INFORMATION: Prescriptions Given: [facility], [address], [place] [phone], [phone] dicyclomine (Bentyl 10 mg Cap) 1 Capsules [...] day. fluticasone nasal (fluticasone Nasal 0.05 mg/inh [place]) 2 Sprays Nasal Inhalation every day. each [...] Mouth every day. potassium chloride (Potassium Chloride (Dcm-Igha-Ywj 10) 10 mEq oral tablet, extended release) pramipexole (pramipexole 0.5 mg oral tablet) 1 Tablets By Mouth 3 times a day. theophylline (theophylline 300 mg ER Tab) 1 Tablets By Mouth every 12 hours. trazodone (traZODONE 50 mg Tab) 1 Tablets By Mouth once a day (at bedtime). PATIENT EDUCATION INFORMATION: Instructions: Cholelithiasis Follow up: With: Address: When: [facility] [address] [facility] [address] [facility] [place] [address] [phone] Business (1) In 3 days 09/28/2023 With: Address: When: BREA JJ [address], [place] [phone] Business (1) In 3 days DIAGNOSIS: AP (abdominal pain); Cholelithiasis; N&V (nausea and vomiting) Normal [facility] ED Note-Physicianon 09-25-20 ED Note-Physician Basic [...] and Complexity of Problems Differential Diagnosis: [] [facility] Data External documents reviewed: N/A [...] Clinic In 3 days 09/28/2023 EST [address] [facility] 3, 2nd Floor, [address] [place] [phone] Business (1) Additional Instructions: BREA JJ In [address] [place] [address] [phone] Business (1) Additional Instructions: Patient Education Cholelithiasis Problem List/Past Medical History Ongoing Smoker Historical No qualifying data Procedure/Surgical History delivery (05/05/1987), delivery (06/20/1984), Cyst, Knee. Medications Inpatient morphine 4 mg/mL Inj, 4 mg= 1 mL, IV Push, Once Zofran 4 mg/2 mL Injection, 4 mg= 2 mL, IV Push, Once Home albuterol- (more content not included)... Normal [facility] Comment on above: Result Comment: Dorene pina Signed By: Moses Fischer DO\.br\Date and Time [...] to break (more content not included)... 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 It is important that you follow up with a doctor, nurse practitioner, or physician?s shipping assistant for ongoing care. If your symptoms [...] Instructions: With: Address: When: [facility] Clinic [address] [facility] 3, 2nd Floor, [address] [place] [address] [phone] Business (1) In 3 days 09/28/2023 With: Address: When: BREA JJ [address], [place] [phone] Business (1) In 3 days In the event that this physician does not participate in your insurance network, please consult with your insurance company to find a nearby participating provider. Patient Education Materials: Cholelithiasis A MESSAGE TO ALL PATIENTS REGARDING OPIOIDS PRESCRIPTION OPIOIDS: WHAT YOU NEED TO KNOW Prescription opioids can be used to help relieve kilvxmio-be-ccjaeq pain and are often prescribed following a [...] and overdos (more content not included)... Normal [facility] HEMATOLOGYOrdered By: SYSTEM SYSTEM on 09-25-2023 [...] 7.1 E9/L Normal 2.0 - 7.5 E9/L FT [facility] HEMATOLOGYOrdered By: Rula Sanders on 09-25-2023 Erythrocyte distribution width (RBC) [Ratio] 15.3 % High 10.9 - 14.2 % [facility] Hematocrit (Bld) [Volume fraction] 38.4 % Normal 34.0 - 46.0 % [facility] Hemoglobin (Bld) [Mass/Vol] 13.0 g/dL Normal 12.0 - 16.0 gm/dL [facility] MCH (RBC) [Entitic mass] 29.4 pg Normal 27.0 - 34.0 pg [facility] MCHC (RBC) [Mass/Vol] 33.9 g/dL Normal 31.4 - 36.0 gm/dL [facility] MCV (RBC) [Entitic vol] 86.6 fL Normal 80.0 - 100.0 fL [facility] Platelet mean volume (Bld) [Entitic vol] 9.5 fL Normal 6.4 - 10.8 fL [facility] Platelets (Bld) [#/Vol] 207.0 E9/L Normal 150.0 - 500.0 E9/L [facility] RBC (Bld) [#/Vol] 4.4 E12/L Normal 4.3 - 5.9 E12/L [facility] WBC corrected for nucl RBC Auto (Bld) [#/Vol] 9.5 E9/L Normal 4.0 - 11.0 E9/L [facility] Hep Func Panelon 09-25-2023 Albumin [Mass/Vol] 3.9 g/dL Normal 3.3-5.0 [facility] Comment on above: Performed By: #### 2 677071, 1434001, 0953516, 9966082, 21566774, 7098543 ####[facility] [address] [place] [address] Albumin/Globulin (S) [Mass conc ratio] 1.0 Low 1.1-2.2 [facility] Comment on above: Performed By: #### 2 768324, 9696522, 9291141, 9979245, 75896320, 8050741 ####[facility] [address] [place], [place] [address] ALP [Catalytic activity/Vol] 66 Int._Unit/L Normal 21-98 [facility] Comment on above: Performed By: #### 2 666528, 3946206, 9873819, 7497255, 09857746, 8930846 ####[facility] [address] [place] [address] ALT No additional P-5'-P [Catalytic activity/Vol] 25 Int._Unit/L Normal 6-46 [facility] Comment on above: Performed By: #### 2 019423, 9636763, 5084267, 4969651, 04137734, 1793099 ####[place] [address] AST [Catalytic activity/Vol] 25 Int._Unit/L Normal 5-43 [facility] Comment on above: Performed By: #### 2 638455, 5580677, 2844337, 0752393, 97456902, 1224494 ####[facility] [address] [place], [place] [address] Bilirubin [Mass/Vol] 0.2 mg/dL Normal 0.0-1.1 [facility] Comment on above: Performed By: #### 2 003369, 5991157, 0169311, 6088421, 89163715, 3960047 ####[place] [address] Bilirubin.direct [Mass/Vol] 0.1 mg/dL Normal 0.1-0.4 [facility] Comment on above: Performed By: #### 2 186935, 4806207, 7270554, 4674486, 56544118, 9090894 ####[facility] [address] [place], [place] [address] Bilirubin.indirect [Mass or moles/Vol] 0.1 mg/dL Normal 0.1-0.9 [facility] Comment on above: Performed By: #### 2 879090, 3264052, 3214640, 1465043, 90511740, 7665757 ####[facility] [address] [place] [address] Globulin (S) [Mass/Vol] 4.0 g/dL Normal 1.4-4.0 [facility] Comment on above: Performed By: #### 2 669123, 8413058, 4082442, 0199043, 92102048, 9226347 ####[place] [address] [place] [address] Protein [Mass/Vol] 7.9 g/dL High 6.0-7.8 [facility] Comment on above: Performed By: #### 2 909329, 9292881, 9378828, 8844957, 10050197, 7770775 ####[place] [address] [place] [address] Lipase Levelon 09-25-2023 Lipase [Catalytic activity/Vol] 39 U/L Normal 13-58 [facility] Comment on above: Performed By: #### 2 712629, 5937324, 5252906, 2888807, 68901275, 4836042 ####[address] [address] Monitor Recordon 09-25-2023 Monitor Record [id number]# 1.00TIFF Normal [facility] RAD - Preliminary Cat Scan R eporton 09-25-2023 RAD - Preliminary Cat Scan Report [id number]# 1.00TIFF Normal [facility] UA With Cult Reflexon 2022 Bilirubin Ql (U) Negative Normal Negative [facility] Comment on above: Performed By: #### 1 9947859 ####[address] [address] Clarity (U) CLEAR Normal Clear [facility] Comment on above: Performed By: #### 1 3094345 ####[address] [address] Color (U) YELLOW Normal Yellow [facility] Comment on above: Performed By: #### 1 7575317 ####[facility] [address] [place] [address] Epithelial cells.squamous LM.HPF (Urine sed) [#/Area] 0-2 Normal 0-2 [facility] Comment on above: Performed By: #### 1 4157431 ####[facility] [address] [place] [address] Glucose Test strip (U) [Mass/Vol] Negative Normal Negative [facility] Comment on above: Performed By: #### 1 9705446 ####[facility] [address] [place] [address] Hemoglobin Ql (U) Negative Normal Negative [facility] Comment on above: Performed By: #### 1 5100316 ####[address] [address] Ketones (U) [Mass/Vol] Negative Normal Negative [facility] Comment on above: Performed By: #### 1 9360870 ####[facility] [address] [place] [address] [place].plasma/[place] .RBC (Bld) [Mass ratio] 0-3 Normal 0-3 [facility] Comment on above: Performed By: #### 1 7841777 ####[facility] [address] [place] [address] Nitrite Ql (U) Negative Normal Negative [facility] Comment on above: Performed By: #### 1 5176844 ####[facility] [address] [place] [address] pH (U) 6.5 [pH] Invalid Interpretation Code 5.0-9.0 [facility] Comment on above: Performed By: #### 1 8050392 ####[facility] [address] [place] [address] Protein (U) [Mass/Vol] Negative Normal Negative [facility] Comment on above: Performed By: #### 1 2001853 ####[place] [address] Specific gravity (U) [Rel density] <=1.005 Invalid Interpretation Code 1.005-1.030 [facility] Comment on above: Performed By: #### 1 9338660 ####[place] [address] Type of Urine collection method Clean Catch Normal [facility] Comment on above: Performed By: #### 1 0613785 ####[place] [address]57 Urobilinogen Qn (U) 0.2 {Nayla'U}/dL Normal 0.0-1.0 [facility] Comment on above: Performed By: #### 1 4142756 ####[place] [address] WBC Auto Ql (U) Negative Normal Negative [facility] Comment on above: Performed By: #### 1 6562945 ####[place] [address]57 WBC LM.HPF (Urine sed) [#/Area] 0-5 Normal 0-5 [facility] Comment on above: Performed By: #### 1 7869097 ####[place] [address] URINALYSISOrdered By: Tanya Nathan on 09-25-2023 Bilirubin Ql (U) Negative (09/25/23 9:53 PM) Normal Negative [facility] Auto SS Clarity (U) Clear (09/25/23 9:53 PM) Normal Clear [facility] Auto SS Color (U) Yellow (09/25/23 9:53 PM) Normal Yellow [facility] U[facility] Auto SS Epithelial cells.squamous LM.HPF (Urine sed) [#/Area] 0-2 /HPF Normal 0-2/HPF [facility] UA Aut o SS Glucose Test strip (U) [Mass/Vol] Negative (09/25/23 9:53 PM) Normal Negative [facility] UA Auto SS Hemoglobin Ql (U) Negative (09/25/23 9:53 PM) Normal Negative [facility] UA Auto SS Ketones (U) [Mass/Vol] Negative (09/25/23 9:53 PM) Normal Negative [facility] UA Auto SS [place].plasma/[place] .RBC (Bld) [Mass ratio] 0-3 /HPF Normal [...] Desc Clean Catch (09/25/23 9:53 PM) Normal [facility] UA Auto SS Urobilinogen Qn (U) 0.7678620 {Nayla'U}/dL Normal 0.0 - 1.0 EU/dL [facility] UA Auto SS WBC Auto Ql (U) Negative (09/25/23 9:53 PM) Normal Negative [facility] UA Auto SS WBC LM.HPF (Urine sed) [#/Area] 0-5 /HPF Normal 0-5/HPF [facility] UA Auto SS eGFRon 09-25-2023 GFR/1.73 sq M.predicted among non-blacks MDRD (S/P/Bld) [Vol rate/Area] 74 mL/min/1.73 m2 Normal >=59 [facility] Comment on above: Order Comment: Order added by Discern Expert. Result Comment: Catalog Librarian nita kidney disease could be indicated at eGFR's of less than 60 mL/min/1.73m2. Kidney failure is indicated at less than 15 mL/min/1.73m2. Performed By: #### 2 736842, 7068168, 4594267, 4320442, 88440828, 7402481 ####[facility] [address] [place] [address] 36on 09-08-2023 36 Approving, but needs appt for additional refills. Normal [facility] Auto Diffon 09-08-2023 Basophils/100 WBC (Bld) 0.2 % Normal 0.0-2.0 [facility] Comment on above: Order Comment: Order Added by Discern Expert. Performed By: #### 2 569615, 25591024, 3614252, 3697530, 94679837, 76122709, 97890296, 0518477 ####[facility] [address] [place] [address] Basophils/Leukocytes Auto (Bld) [Pure # fraction] 0.0 E9/L Normal 0.0-0.2 [facility] Comment on above: Order Comment: Order Added by Discern Expert. Performed By: #### 2 541347, 19291926, 9337507, 9010078, 62373989, 44591893, 75991148, 0746412 ####[address] [address] Eosinophils/100 WBC (Bld) 0.8 % Normal 0.0-8.0 [facility] Comment on above: Order Comment: Order Added by Discern Expert. Performed By: #### 2 585229, 12907293, 0267482, 2764318, 34989061, 56985737, 82924930, 8833387 ####[place] [address] [place] [address] Eosinophils/Leukocytes Auto (Bld) [Pure # fraction] 0.1 E9/L Normal 0.0-0.5 [facility] Comment on above: Order Comment: Order Added by Discern Expert. Performed By: #### 2 708051, 63850042, 6164443, 8218034, 39920099, 10615095, 69557579, 5373580 ####[address] [address] Lymphocytes/100 WBC (Bld) 11.3 % Low 14.0-50.0 [facility] Comment on above: Order Comment: Order Added by Discern Expert. Performed By: #### 2 186249, 03361755, 4213604, 9755689, 82096575, 90613089, 34832101, 3320736 ####[facility] [address] [place] [address] Lymphocytes/Leukocytes Auto (Bld) [Pure # fraction] 1.0 E9/L Normal 1.0-4.0 [facility] Comment on above: Order Comment: Order Added by Discern Expert. Performed By: #### 2 776755, 59901499, 0747266, 6136426, 63951768, 57576614, 36100755, 9095536 ####[place] [address] [place] [address] Monocytes/100 WBC (Bld) 6.9 % Normal 4.0-14.0 [facility] Comment on above: Order Comment: Order Added by Discern Expert. Performed By: #### 2 932568, 32236130, 3706836, 4879654, 86195763, 10790972, 27072189, 2337708 ####[address] [address] Monocytes/Leukocytes Auto (Bld) [Pure # fraction] 0.6 E9/L Normal 0.2-1.0 [facility] Comment on above: Order Comment: Order Added by Discern Expert. Performed By: #### 2 023043, 22922391, 7098740, 8391454, 91199220, 24947172, 87849773, 9806517 ####[address] [address] Neutrophils/100 WBC (Bld) 80.8 % High 36.0-75.0 [facility] Comment on above: Order Comment: Order Added by Discern Expert. Performed By: #### 2 065708, 35100849, 1076523, 1056936, 48450108, 07982056, 56752534, 0013749 ####[place] [address] [place] [address] Neutrophils/Leukocytes Auto (Bld) [Pure # fraction] 7.1 E9/L Normal 2.0-7.5 [facility] Comment on above: Order Comment: Order Added by Discern Expert. Performed By: #### 2 355093, 67430958, 6997497, 7586263, 64955166, 70487741, 01314350, 1826796 ####[facility] [address] [place] [address] BMPon 09-08-2023 Creatinine [Mass/Vol] 1.2 mg/dL Normal 0.5-1.3 [facility] Comment on above: Performed By: #### 2 319803, 08484519, 8649417, 6483421, 47900885, 55543170, 50927554, 4801410 ####[facility] [address] [place] [address] Urea nitrogen [Mass/Vol] 26 mg/dL High 5-21 [facility] Comment on above: Performed By: #### 2 482385, 90854826, 6183498, 5318834, 72878936, 40042062, 79874941, 5678163 ####[facility] [address] [place] [address] Urea nitrogen/Creatinine [Mass ratio] 22 No Units High 10-20 [facility] Comment on above: Performed By: #### 2 378699, 93782448, 2237813, 3152130, 71117892, 64932422, 85447245, 2821980 ####[facility] [address] [place] [address] Anion gap [Moles/Vol] 13 mmol/L Normal 6-16 [facility] Comment on above: Performed By: #### 2 240357, 86461219, 0309554, 4118154, 33821019, 55583280, 49527087, 2546210 ####[facility] [address] [place] [address] Calcium [Mass/Vol] 9.9 mg/dL Normal 8.9-11.1 [facility] Comment on above: Performed By: #### 2 397655, 13477303, 5980340, 0648818, 13729632, 43434458, 40106434, 4298861 ####[facility] [address] [place] [address] Chloride [Moles/Vol] 99 mmol/L Low 101-111 [facility] Comment on above: Performed By: #### 2 048119, 34837834, 8055429, 7351327, 89396292, 65804774, 86478584, 8314695 ####[facility] [address] [place] [address] CO2 [Moles/Vol] 28 mmol/L Normal 21-31 [facility] Comment on above: Performed By: #### 2 040414, 48495310, 5698432, 8743184, 97722435, 06271454, 14591493, 7486642 ####[facility] [address] [place] [address] Glucose [Mass/Vol] 126 mg/dL Normal 55-199 [facility] Comment on above: Result Comment: If t his glucose result represents a fasting glucose, interpretation should refer to the following reference range: 55-99 mg/dL Performed By: #### 2 616540, 16535540, 3260426, 6980509, 82395836, 45063239, 92975047, 0813311 ####[facility] [address] [place] [address] Potassium [Moles/Vol] 4.0 mmol/L Normal 3.5-5.3 [facility] Comment on above: Performed By: #### 2 770595, 31941566, 4721735, 8394092, 06334477, 82172762, 27914504, 3162648 ####[facility] [address] [place] [address] Sodium [Moles/Vol] 136 mmol/L Normal 135-145 [facility] Comment on above: Performed By: #### 2 821690, 73178077, 0285599, 5196885, 73020870, 67279629, 86601686, 7203399 ####[facility] [address] [place] [address] BNPon 09-08-2023 Int Ctr BNP Pass Normal [facility] Comment on above: Performed By: #### 2 763763, 15555621, 8021276, 5701364, 63520421, 26341954, 33978948, 8202074 ####[facility] [address] [place] [address] Natriuretic peptide B (Bld) [Mass/Vol] 21 pg/mL Normal 5-80 [facility] Comment on above: Performed By: #### 2 547795, 83760122, 5156800, 0945781, 58166726, 71243677, 78875706, 6330856 ####[address] [address] CBC w/ Auto Diffon Erythrocyte distribution width (RBC) [Ratio] 15.1 % High 10.9-14.2 [facility] Comment on above: Performed By: #### 2 169820, 33650350, 9741006, 8687220, 33225641, 12608557, 04122686, 3434089 ####[facility] [address] [place] [address] Hematocrit (Bld) [Volume fraction] 38.8 % Normal 34.0-46.0 [facility] Comment on above: Performed By: #### 2 382673, 24760617, 8399531, 5707327, 56805007, 70581612, 64603717, 4156670 ####[facility] [address] [place] [address] Hemoglobin (Bld) [Mass/Vol] 13.0 g/dL Normal 12.0-16.0 [facility] Comment on above: Performed By: #### 2 045277, 66097819, 7568130, 2254328, 73501745, 20521623, 95479874, 4623202 ####[facility] [address] [place] [address] MCH (RBC) [Entitic mass] 29.4 pg Normal 27.0-34.0 [facility] Comment on above: Performed By: #### 2 094144, 32808984, 9712748, 4471210, 78528544, 13795493, 14975143, 1346986 ####[address] [address] MCHC (RBC) [Mass/Vol] 33.5 g/dL Normal 31.4-36.0 [facility] Comment on above: Performed By: #### 2 110866, 52453269, 7376966, 5699588, 59544106, 26034973, 29391843, 1050725 ####[address] [address] MCV (RBC) [Entitic vol] 87.6 fL Normal 80.0-100.0 [facility] Comment on above: Performed By: #### 2 857624, 96141543, 0650904, 4585926, 22819331, 11627850, 07090702, 6621082 ####[address] [address] Platelet mean volume (Bld) [Entitic vol] 10.7 fL Normal 6.4-10.8 [facility] Comment on above: Performed By: #### 2 968141, 57095392, 7535273, 2744583, 39696989, 60546495, 68175258, 5181187 ####[address] [address] Platelets (Bld) [#/Vol] 195.0 E9/L Normal 150.0-500.0 [facility] Comment on above: Performed By: #### 2 520532, 82268747, 5648969, 0900194, 94065779, 63700408, 15159787, 7428575 ####[address] [address] RBC (Bld) [#/Vol] 4.4 E12/L Normal 4.3-5.9 [facility] Comment on above: Performed By: #### 2 339580, 07113394, 3188745, 6660477, 67120045, 40954004, 95107644, 6498363 ####[facility] [address] [place] [address] WBC corrected for nucl RBC Auto (Bld) [#/Vol] 8.8 E9/L Normal 4.0-11.0 [facility] Comment on above: Performed By: #### 2 435884, 73664369, 3655265, 9254009, 31799092, 60933238, 49668025, 6524798 ####[facility] [address] [place] [address] CHEMISTRYOrdered By: SYSTEM SYSTEM on 09-08-2023 Troponin [...] Sensitivity Troponin I Instructions For Use, Claude [place], May 2018) Albumin [Mass/Vol] 3.8 g/dL Normal [...] 52 mL/min/1.73 m2 Low >=59mL/min/1 .73 m2 [facility] Chem S Comment on [...] 136 mmol/L Normal 135 - 145 mmol/L [facility] Remisol Troponin I.cardiac [Mass/Vol] 4.70 pg/mL Low 10.10 - 27.10 pg/mL [facility] Remisol Comment on above: Interpretive Data: T he 95% CI (Confidence Interval) PPV (Positive Predictive Value) for myocardial infarction in females is 38 pg/mL, in males 51 pg/mL. The results should be used in conjunction with clinical conditions of myocardial infarction. (Access High Sensitivity Troponin I Instructions For Use, Claude [place], May 2018) Urea nitrogen [Mass/Vol] 26 mg/dL High 5 - 21 mg/dL [facility] Urea nitrogen/Creatinine [Mass ratio] 22 mg/mg High 10 - 20 [facility] Remisol CHEMISTRYOrdered By: Yanet Davis on 09-08-2023 Natriuretic peptide B (Bld) [Mass/Vol] 21 pg/mL Normal 5 - 80 pg/mL [facility] HemeManSS COAGULATIONOrdered By: Dov Patel on 09-08-2023 aPTT Coag (PPP) [Time] 37.3 s High 25.1 - 36.5 second(s) [facility] Auto Coag Comment on [...] the same coagulation reagent and instrumentation as [facility]. Currently there are no coagulation studies available worldwide for children to 14 days, and no normal ranges. Heparin therapeutic range (represented by Anti-Factor Xa activity of 0.2 - 0.4 U/mL) corresponds to PTT of 56.6 - 109.0 sec. INR Coag (PPP) [Relative time] 1.2 {INR} Invalid Interpretation Code [facility] Auto Coag Comment on above: Interpretive Data: I NR results are specifically intended to assess patients stabilized on long-term Anticoagulation therapy suggested INR s Less Intensive Anticoagulation 2.0 3.0 Conventional Range 3.0 4.5 PT Coag (PPP) [Time] 13.7 s High 9.4 - 1 2.5 second(s) [facility] [place] Auto [employer] Comment on [...] the same coagulation reagent and instrumentation as [facility]. Currently there are no [...] 370 Contrast amount in ml's: 68 Normal [facility] Consent for Treatmenton Consent for Treatment [id number]# 1.00TIFF Normal [facility] Discharge Instructionson Discharge Instructions [id number]# 1.00TIFF Normal [facility] ED Clinical Summaryon 2022 ED Clinical Summary [place] [id number] ED Clinical Summary Person Information Name: ALIYA MOORE [facility] Age: 57 Years : 1965 Sex: Female Language: Hungarian PCP: BREA JJ CNP Marital Status: Visit [...] 09/08/2023 20:29:11 09/08/2023 20:29:11 09/08/2023 20:29:11 AD[address]: [id number] [address] [address] [facility] [id number] PHYS DOC NOTES: MEDICAL INFORMATION: Prescriptions Given: [...] day. fluticasone nasal (fluticasone Nasal 0.05 mg/inh [place]) 2 Sprays Nasal Inhalation every day. each [...] Mouth every day. potassium chloride (Potassium Chloride (Ozw-Xkgy-Ddi 10) 10 mEq oral tablet, extended release) [...] With: Address: When: BREA JJ [address], [place] [phone] Business (1) In 3 days DIAGNOSIS: Acute chest pain Normal [facility] ED Note-Physicianon 09-08-20 ED Note-Physician Patient [...] precautions. Patient was discharged stable condition. Normal [facility] Comment on above: Result Comment: Elec [...] History O (more content not included)... Normal [facility] Comment on above: Result Comment: Elec [...] these instructions at home: Medicines ? Take tewy-bqi-chehszd and prescription medicines only as told by [...] by your (more content not included)... Normal [facility] ED Patient Summaryon 023 ED Patient Summary [address] [address] Patient Discharge Instructions Person Information Name: ALIYA MOORE Age: 57 Years Arrival Date: 09/08/2023 16:32:21 Discharge Diagnosis: Acute chest pain Primary Care Physician: BREA JJ CNP Provider Information Primary Provider: Ramses Hair DO [employer] Operator:None The exam and treatment you received in the Emergency Department were for an urgent problem and are not intended as complete care. It is important that you follow up with a doctor, nurse practitioner, or physician?s shipping assistant for ongoing care. If your symptoms [...] Address: When: BREA JJ [address] [place], [place] [phone] Business (1) In 3 days In the event that this physician does not participate in your insurance network, please consult with your insurance company to find a nearby participating provider. Patient Education Materials: Nonspecific Chest Pain, Adult A MESSAGE TO ALL PATIENTS REGARDING OPIOIDS PRESCRIPTION OPIOIDS: WHAT YOU NEED TO KNOW Prescription opioids can be used to help relieve bphwoymq-sc-taefmb pain and are often prescribed following a [...] be struggling with addiction, tell your health auto care center manager and ask for guidance or call [facility]?S National Helpline at 4-398-305-WEVP. v Source: [place] (more content not included)... Normal [facility] EMS Documentationon 09-08-20 EMS Documentation Please click on link to see report Normal [facility] Comment on above: Result Comment: Miss duncan Attachment - attachment exceeds size limitation Continuous_[email or web address].pdf Can be viewed in source system HEMATOLOGYOrdered By: SYSTEM SYSTEM on 09-08-2023 Basophils/100 WBC (Bld) 0.2 % Normal 0.0 - 2.0 % [facility] Basophils/Leukocytes Auto (Bld) [...] 33.5 g/dL Normal 31.4 - 36.0 gm/dL [facility] HemeAutoSS MCV (RBC) [Entitic vol] 87.6 fL Normal 80.0 - 100.0 fL [facility] HemeAutoSS Platelet mean volume (Bld) [Entitic vol] 10.7 fL Normal 6.4 - 10.8 fL [facility] HemeAutoSS Platelets (Bld) [#/Vol] 195.0 E9/L Normal 150.0 - 500.0 E9/L [facility] HemeAutoSS RBC (Bld) [#/Vol] 4.4 E12/L Normal 4.3 - 5.9 E12/L [facility]eAuto[facility] WBC corrected for nucl RBC Auto (Bld) [#/Vol] 8.8 E9/L Normal 4.0 - 11.0 E9/L [facility] Hep Func Panelon 09-08-2023 Bilirubin.indirect [Mass or moles/Vol] UTC Abnormal 0.1-0.9 [facility] Comment on above: Result Comment: Resu lt verified by Discern Rule. Performed result UT (Unable to Calculate) was sent as an Alpha code due the inability to calculate a valid numeric value. Performed By: #### 2 872475, 40834490, 0643220, 6347984, 06187512, 54858486, 99294459, 4707638 ####[facility] [address] [place] [address] Albumin [Mass/Vol] 3.8 g/dL Normal 3.3-5.0 [facility] Comment on above: Performed By: #### 2 434224, 84835932, 5347710, 8642450, 93765770, 62869754, 65576482, 8982868 ####[facility] [address] [place] [address] Albumin/Globulin (S) [Mass conc ratio] 0.8 Low 1.1-2.2 [facility] Comment on above: Performed By: #### 2 071752, 05988031, 2332752, 4975628, 77742689, 59555143, 87799698, 8285713 ####[facility] [address] [place] [address] ALP [Catalytic activity/Vol] 68 Int._Unit/L Normal 21-98 [facility] Comment on above: Performed By: #### 2 213215, 22721812, 9951324, 2185513, 69983256, 83181615, 26104470, 6332330 ####[facility] [address] [place] [address] ALT No additional P-5'-P [Catalytic activity/Vol] 18 Int._Unit/L Normal 6-46 [facility] Comment on above: Performed By: #### 2 135195, 40109620, 5927536, 4335921, 63274542, 59651928, 42067000, 8719040 ####[facility] [address] [place] [address] AST [Catalytic activity/Vol] 20 Int._Unit/L Normal 5-43 [facility] Comment on above: Performed By: #### 2 694439, 17561175, 3014014, 2216626, 15763630, 00450105, 21241393, 0910330 ####[place] [address] [place] [address] Bilirubin [Mass/Vol] 0.4 mg/dL Normal 0.0-1.1 [facility] Comment on above: Performed By: #### 2 395130, 52215539, 4055309, 2108661, 34999540, 46258150, 43620971, 2693732 ####[address] [address] [place] [address] Globulin (S) [Mass/Vol] 4.5 g/dL High 1.4-4.0 [facility] Comment on above: Performed By: #### 2 141912, 42632628, 1762074, 1396478, 16933835, 49231887, 05806553, 0139516 ####[facility] [address] [place] [address] Protein [Mass/Vol] 8.3 g/dL High 6.0-7.8 [facility] Comment on above: Performed By: #### 2 507790, 70232310, 7699056, 7006163, 36109556, 59801003, 86389264, 8688292 ####[facility] [address] [place] [address] Bilirubin.direct [Mass/Vol] mg/dL Normal 0.1-0.4 [facility] Comment on above: Performed By: #### 2 275944, 98960134, 4126608, 9892809, 60085916, 38615387, 74337531, 2071369 ####[facility] [address] [place] [address] Monitor Recordon 09-08-2023 Monitor Record [id number]# 1.00TIFF Normal [facility] Monitor Record [id number]# 1.00TIFF Normal [facility] PT & PTTon 09-08-2023 aPTT Coag (PPP) [Time] 37.3 second(s) High 25.1-36.5 [facility] Comment on above: Result Comment: Para [...] the same coagulation reagent and instrumentation as [facility]. Currently there are no coagulation studies available worldwide for children to 14 days, and no normal ranges. Heparin therapeutic range (represented by Anti-Factor Xa activity of 0.2 - 0.4 U/mL) corresponds to PTT of 56.6 - 109.0 sec. Performed By: #### 2 555136, 67904128, 5747993, 4689811, 30691300, 79078159, 21218842, 0351138 ####[facility] [address] [place] [address] INR Coag (PPP) [Relative time] 1.2 {INR} Invalid Interpretation Code [facility] Comment on above: Result Comment: INR results are specifically intended to assess patients stabilized on long-term Anticoagulation therapy suggested INR?s ?Less Intensive Anticoagulation? 2.0 ? 3.0 Conventional Range 3.0 ? 4.5 Performed By: #### 2 935733, 72581638, 0578880, 6232243, 38970736, 00452802, 87209712, 7745295 ####[facility] [address] [place] [address] PT Coag (PPP) [Time] 13.7 second(s) High 9.4-12.5 [facility] Comment on above: Result Comment: 15 [...] the same coagulation reagent and instrumentation as [facility]. Currently there are no coagulation studies available worldwide for children to 14 days, and no normal ranges. Performed By: #### 2 492496, 54879923, 1019039, 7249683, 70396622, 88840130, 34568376, 1761476 ####[facility] [address] [place] [address] Troponin 0 Hr.on 09-08-2023 Troponin I.cardiac [Mass/Vol] 4.70 pg/mL Low 10.10-27.10 [facility] Comment on above: Result Comment: The 95% CI (Confidence Interval) PPV (Positive Predictive Value) for myocardial infarction in females is 38 pg/mL, in males 51 pg/mL. The results should be used in conjunction with clinical conditions of myocardial infarction. (Access High Sensitivity Troponin I Instructions For Use, Claude Raultio, May 2018) Performed By: #### 2 781579, 49044247, 7352123, 5868636, 73367267, 46164797, 36421073, 7381114 ####[facility] [address] [place] [address] Troponin 3 Hr.on 09-08-2023 Troponin I.cardiac [Mass/Vol] 4.20 pg/mL Low 10.10-27.10 [facility] Comment on above: Result Comment: The 95% CI (Confidence Interval) PPV (Positive Predictive Value) for myocardial infarction in females is 38 pg/mL, in males 51 pg/mL. The results should be used in conjunction with clinical conditions of myocardial infarction. (Access High Sensitivity Troponin I Instructions For Use, Claude [employer], May 2018) Performed By: #### 1 [id number] ####[facility] [address] [place] [address] eGFRon 09-08-2023 GFR/1.73 sq M.predicted among non-blacks MDRD (S/P/Bld) [Vol rate/Area] 52 mL/min/1.73 m2 Low >=59 [facility] Comment on above: Order Comment: Order added by Discern Expert. Result Comment: Catalog Librarian nita kidney disease could be indicated at eGFR's of less than 60 mL/min/1.73m2. Kidney failure is indicated at less than 15 mL/min/1.73m2. Performed By: #### 2 978852, 82840876, 4963192, 0583400, 27113818, 61890076, 55034361, 4473859 ####[facility] [address] [place] [address] Office Visiton 07-20-2023 Follow-up visit [id number] Aliya Moore 1965 F Date Provider Department Center 07/20/2023 Chey-MARLENE SOTO CARD [facility] Family History Problem Relation Age of Onset Coronary artery disease Other Pulmonary embolism Other Deep vein thrombosis Other Family Status - Relation Status Age at Other Level of Service:11764 NM OFFICE/OUTPATIENT ESTABLISHED LOW MDM 20-29 MIN Normal [facility] CHEMISTRYOrdered By: Lab ROP User on 06-17-2023 Glucose [Mass/Vol] 109 mg/dL High 55 - 99 mg/dL [facility] POC Subsection Comment on above: Result Comment: Rafaela duran RN/ POC Device SN [id number] Invalid Interpretation Code [facility] POC Subsection POC User ID [id number] Invalid Interpretation Code [facility] POC Subsection POC Username BRENDA KHAN Invalid Interpretation Code [facility] POC Subsection Glucose [Mass/Vol] 133 mg/dL High 55 - 99 mg/dL [facility] POC Subsection Comment on above: Result Comment: Rafaela duran RN/ POC Device SN [id number] Invalid Interpretation Code [facility] POC Subsection POC User ID [id number] Invalid Interpretation Code [facility] POC Subsection POC Username FAVIOLA MURO Invalid Interpretation Code [facility] POC Subsection Glucose [Mass/Vol] 109 mg/dL High 55 - 99 mg/dL [facility] POC Subsection Comment on above: Result Comment: Rafaela duran RN/ POC Device SN [id number] Invalid Interpretation Code [facility] POC Subsection POC User ID [id number] Invalid Interpretation Code [facility] POC Subsection POC Username BRENDA KHAN Invalid Interpretation Code [facility] POC Subsection CHEMISTRYOrdered By: Kimberley Freeman on 06-17-2023 HbA1c (Bld) [Mass fraction] 5.7 % Normal <=5.9% [facility] CHEMISTRYOrdered By: SYSTEM SYSTEM on 06-17-2023 Troponin I.cardiac [Mass/Vol] 5.20 pg/mL Low 10.10 - 27.10 pg/mL [facility] Remisol CHEMISTRYOrdered By: SYSTEM SYSTEM on 06-16-2023 Troponin I.cardiac [Mass/Vol] 5.50 pg/mL Low 10.10 - 27.10 pg/mL [facility] Remisol Troponin I.cardiac [Mass/Vol] 5.30 pg/mL Low 10.10 - 27.10 pg/mL [facility] Remisol Anion gap [Moles/Vol] 12 mmol/L Normal 6 - 16 mEq/L [facility] Remisol Calcium [Mass/Vol] 9.9 mg/dL Normal 8.9 - 11. 1 mg/dL [facility] Remisol Chloride [Moles/Vol] 101 mmol/L Normal 101 - 1 11 mmol/L [facility] Remisol CO2 [Moles/Vol] 27 mmol/L Normal 21 - 31 mmol/L [facility] Remisol Creatinine [Mass/Vol] 0.8 mg/dL Normal 0.5 - 1.3 mg/dL [facility] GFR/1.73 sq M.predicted among non-blacks MDRD (S/P/Bld) [Vol rate/Area] 85 mL/min/1.73 m2 Normal >=59mL/min/1 .73 m2 [facility] Chem S Glucose [Mass/Vol] 129 mg/dL Normal 55 - 199 mg/dL [facility] Remisol Potassium [Moles/Vol] 3.9 mmol/L Normal 3.5 - 5.3 mmol/L [facility] Remisol Sodium [Moles/Vol] 136 mmol/L Normal 135 - 145 mmol/L [facility] Remisol Urea nitrogen [Mass/Vol] 16 mg/dL Normal 5 - 21 mg/dL [facility] Remisol Urea nitrogen/Creatinine [Mass ratio] 20 [...] 16:59:58 EDT Results Verified By Repeat Analysis INR Coag (PPP) [Relative time] 1.0 {INR} Invalid Interpretation Code [facility] Auto Coag PT Coag (PPP) [Time] 11.4 s Normal 9.4 - 1 2.5 second(s) [facility] Auto Coag HEMATOLOGYOrdered By: SYSTEM SYSTEM on 06-16-2023 Basophils/100 WBC (Bld) 0.3 % Normal 0.0 - 2.0 % [facility]eAuto[facility] Basophils/Leukocytes Auto (Bld) [Pure # fraction] 0.0 E9/L Normal 0.0 - 0.2 E9/L [facility] Eosinophils/100 WBC (Bld) 0.9 % Normal 0.0 - 8.0 % [facility] Eosinophils/Leukocytes Auto (Bld) [Pure # fraction] 0.1 E9/L Normal 0.0 - 0.5 E9/L [facility] Lymphocytes/100 WBC (Bld) 14.3 % Normal 14.0 - 50.0 % [facility]Auto[facility] Lymphocytes/Leukocytes Auto (Bld) [Pure # fraction] 1.2 E9/L Normal 1.0 - 4.0 E9/L [facility]Auto[facility] Monocytes/100 WBC (Bld) 8.8 % Normal 4.0 - 14.0 % [facility]eAuto[facility] Monocytes/Leukocytes Auto (Bld) [Pure # fraction] 0.7 E9/L Normal 0.2 - 1.0 E9/L [facility]Auto[facility] Neutrophils/100 WBC (Bld) 75.7 % High 36.0 - 75.0 % [facility]eAuto[facility] Neutrophils/Leukocytes Auto (Bld) [Pure # fraction] 6.4 E9/L Normal 2.0 - 7.5 E9/L [facility] HEMATOLOGYOrdered By: Gracy Davis on 06-16-2023 Erythrocyte distribution width (RBC) [Ratio] 14.8 % High 10.9 - 14.2 % [facility] Hematocrit (Bld) [Volume fraction] 40.0 % Normal 34.0 - 46.0 % [facility] Hemoglobin (Bld) [Mass/Vol] 13.5 g/dL Normal 12.0 - 16.0 gm/dL [facility]Auto[facility] MCH (RBC) [Entitic mass] 29.6 pg Normal 27.0 - 34.0 pg [facility] MCHC (RBC) [Mass/Vol] 33.8 g/dL Normal 31.4 - 36.0 gm/dL [facility]Auto[facility] MCV (RBC) [Entitic vol] 87.6 fL Normal 80.0 - 100.0 fL [facility]eAuto[facility] Platelet mean volume (Bld) [Entitic vol] 10.5 fL Normal 6.4 - 10.8 fL [facility]eAuto[facility] Platelets (Bld) [#/Vol] 172.0 E9/L Normal 150.0 - 500.0 E9/L [facility] RBC (Bld) [#/Vol] 4.6 E12/L Normal 4.3 - 5.9 E12/L [facility]Auto[facility] WBC corrected for nucl RBC Auto (Bld) [#/Vol] 8.4 E9/L Normal 4.0 - 11.0 E9/L [facility] HemeAutoSS 36on 06-09-2023 36 Patient will need a follow up appointment for further refills Normal [facility] BNPon 02-23-2023 Natriuretic peptide B (Bld) [Mass/Vol] 114.0 pg/mL Normal <=900.0 [facility] Comment on above: Performed By: #### C MP, BNP, HSTROPN #### [facility] [address] [place] [address] Dr. Xiomy Lennon CBC AUTO DIFFon 02-23-2023 BASO # 0.0 103/ul Normal 0.0-0.1 [facility] Comment on above: Performed By: #### P T, PTT #### [facility] [address] [place] [address] Dr. Xiomy Lennon Basophils/100 WBC (Bld) 0.2 % Normal 0.2-2.0 [facility] Comment on above: Performed By: #### P T, PTT #### [facility] [address] [place] [address] Dr. Xiomy Lennon EO # 0.2 103/ul Normal 0.0-0.7 [facility] Comment on above: Performed By: #### P T, PTT #### [facility] [address] [place] [address] Dr. Xiomy Lennon Eosinophils/100 WBC (Bld) 1.8 % Normal 0.9-7.0 [facility] Comment on above: Performed By: #### P T, PTT #### [facility] [address] [place] [address] Dr. iXomy Lennon Erythrocyte distribution width (RBC) [Ratio] 15.4 % Critically high 11.0-15.0 [facility] Comment on above: Performed By: #### P T, PTT #### [facility] [address] [place] [address] Dr. Xiomy Lennon Hematocrit (Bld) [Volume fraction] 37.6 % Normal 36.0-48.0 [facility] Comment on above: Performed By: #### P T, PTT #### [facility] [address] [place] [address] Dr. Xiomy Lennon Hemoglobin (Bld) [Mass/Vol] 12.2 g/dL Normal 12.0-16.0 [facility] Comment on above: Performed By: #### P T, PTT #### [facility] [address] [place] [address] Dr. Xiomy Lennon IG # 0.02 10e3/ul Normal 0.00-0.03 [facility] Comment on above: Performed By: #### P T, PTT #### [facility] [address] [place] [address] Dr. Xiomy Lennon IG % 0.2 % Normal 0.0-0.5 [facility] Comment on above: Performed By: #### P T, PTT #### [facility] [address] [place] [address] Dr. Xiomy Lennon LYMPH # 1.7 103/ul Normal 1.2-3.8 [facility] Comment on above: Performed By: #### P T, PTT #### [facility] [address] [place] [address] Dr. Xiomy Lennon Lymphocytes/100 WBC (Bld) 17.0 % Critically low 20.5-60.0 [facility] Comment on above: Performed By: #### P T, PTT #### [facility] [address] [place] [address] Dr. Xiomy Lennon MANUAL DIFF REQ NO Normal [facility] Comment on above: Performed By: #### P T, PTT #### [facility] [address] [place] [address] Dr. Xiomy Lennon MCH (RBC) [Entitic mass] 28.6 pg Normal 26.7-34.0 [facility] Comment on above: Performed By: #### P T, PTT #### [facility] [address] [place] [address] Dr. Xiomy Lennon MCHC (RBC) [Mass/Vol] 32.4 g/dL Normal 29.9-35.2 [facility] Comment on above: Performed By: #### P T, PTT #### [facility] [address] [address] [address] Xiomy Lennon MCV (RBC) [Entitic vol] 88.3 fL Normal 81.0-99.0 [facility] Comment on above: Performed By: #### P T, PTT #### [facility] [address] [place] [address] Dr. Xiomy Lennon MONO # 0.7 103/ul Normal 0.3-0.8 [facility] Comment on above: Performed By: #### P T, PTT #### [facility] [address] [place] [address] Dr. Xiomy Lennon Monocytes/100 WBC (Bld) 7.3 % Normal 1.7-12.0 [facility] Comment on above: Performed By: #### P T, PTT #### [facility] [address] [place] [address] Dr. Xiomy Lennon NEUT # 7.2 103/ul Critically high 1.4-6.5 [facility] Comment on above: Performed By: #### P T, PTT #### [facility] [address] [place] [address] Dr. Xiomy Lennon Neutrophils/100 WBC (Bld) 73.5 % Normal 43.0-75.0 [facility] Comment on above: Performed By: #### P T, PTT #### [facility] [address] [place] [address] Dr. Xiomy Lennon Platelet mean volume (Bld) [Entitic vol] 11.5 fL Normal 9.5-13.5 [facility] Comment on above: Performed By: #### P T, PTT #### [facility] [address] [place] [address] Dr. Xiomy Lennon PLT 197 103/ul Normal 150-450 [facility] Comment on above: Performed By: #### P T, PTT #### [facility] [address] [place] [address] Dr. Xiomy Lennon RBC 4.26 106/ul Normal 4.20-5.40 [facility] Comment on above: Performed By: #### P T, PTT #### [facility] [address] [place] [address] Dr. Xiomy Lennon WBC 9.7 103/ul Normal 4.0-11.0 [facility] Comment on above: Performed By: #### P T, PTT #### [facility] [address] [place] [address] Dr. Xiomy Lennon LACTATE/LACTIC ACIDon 2022 Lactate [Moles/Vol] 0.7 mmol/L Normal 0.4-2.0 [facility] Comment on above: Performed By: #### P T, PTT #### [facility] [address] [place] [address] Dr. Xiomy Lennon PROF 14(COMP METB)on 023 Albumin [Mass/Vol] 3.3 g/dL Critically low 3.4-5.0 [facility] Comment on above: Performed By: #### C MP, BNP, HSTROPN #### [facility] [address] [place] [address] Dr. Xiomy Lennon Albumin/Globulin [Mass ratio] 0.7 {ratio} Normal [facility] Comment on above: Performed By: #### C MP, BNP, HSTROPN #### [facility] [address] [place] [address] Dr. Xiomy Lennon ALP [Catalytic activity/Vol] 89 U/L Normal 46-116 [facility] Comment on above: Performed By: #### C MP, BNP, HSTROPN #### [facility] [address] [place] [address] Dr. Xiomy Lennon ALT [Catalytic activity/Vol] 34 U/L Normal 14-59 [facility] Comment on above: Performed By: #### C MP, BNP, HSTROPN #### [facility] [address] [place] [address] Dr. Xiomy Lennon Anion gap [Moles/Vol] 10.5 mmol/L Normal [facility] Comment on above: Performed By: #### C MP, BNP, HSTROPN #### [facility] [address] [place] [address] Dr. Xiomy Lennon AST [Catalytic activity/Vol] 22 U/L Normal 15-37 [facility] Comment on above: Performed By: #### C MP, BNP, HSTROPN #### [facility] [address] [address] [address] Xiomy Lennon Bilirubin [Mass/Vol] 0.3 mg/dL Normal 0.2-1.0 [facility] Comment on above: Performed By: #### C MP, BNP, HSTROPN #### [facility] [address] [place] [address] Dr. Xiomy Lennon Calcium [Mass/Vol] 9.4 mg/dL Normal 8.5-10.1 [facility] Comment on above: Performed By: #### C MP, BNP, HSTROPN #### [facility] [address] [place] [address] Dr. Xiomy Lennon Chloride [Moles/Vol] 99 mmol/L Normal 98-107 [facility] Comment on above: Performed By: #### C MP, BNP, HSTROPN #### [facility] [address] [place] [address] Dr. Xiomy Lennon CO2 [Moles/Vol] 31.6 mmol/L Normal 21.0-32.0 [facility] Comment on above: Performed By: #### C MP, BNP, HSTROPN #### [facility] [address] [place] [address] Dr. Xiomy Lennon Creatinine [Mass/Vol] 0.86 mg/dL Normal 0.55-1.02 [facility] Comment on above: Performed By: #### C MP, BNP, HSTROPN #### [facility] [address] [place] [address] Dr. Xiomy Lennon EGFR-AF WALLISIAN >60 Normal >=60 [facility] Comment on above: Performed By: #### C MP, BNP, HSTROPN #### [facility] [address] [place] [address] Dr. Xiomy Lennon EGFR-NON AF WALLISIAN >60 Normal >=60 [facility] Comment on above: Performed By: #### C MP, BNP, HSTROPN #### [facility] [address] [place] [address] Dr. Xiomy Lennon Globulin (S) [Mass/Vol] 4.6 g/dL Normal [facility] Comment on above: Performed By: #### C MP, BNP, HSTROPN #### [facility] [address] [place] [address] Dr. Xiomy Lennon Glucose [Mass/Vol] 133 mg/dL Critically high 74-106 T [facility] Comment on above: Performed By: #### C MP, BNP, HSTROPN #### [facility] [address] [place] [address] Dr. Xiomy Lennon Potassium [Moles/Vol] 4.1 mmol/L Normal 3.5-5.1 [facility] Comment on above: Performed By: #### C MP, BNP, HSTROPN #### [facility] [address] [place] [address] Dr. Xiomy Lennon Protein [Mass/Vol] 7.9 g/dL Normal 6.4-8.2 [facility] Comment on above: Performed By: #### C MP, BNP, HSTROPN #### [facility] [address] [place] [address] Dr. Xiomy Lennon Sodium [Moles/Vol] 137 mmol/L Normal 136-145 [facility] Comment on above: Performed By: #### C MP, BNP, HSTROPN #### [facility] [address] [place] [address] Dr. Xiomy Lennon Urea nitrogen [Mass/Vol] 16.0 mg/dL Normal 7.0-18.0 [facility] Comment on above: Performed By: #### C MP, BNP, HSTROPN #### [facility] [address] [place] [address] Dr. Xiomy Lennon Urea nitrogen/Creatinine [Mass ratio] 18.6 mg/mg Normal [facility] Comment on above: Performed By: #### C MP, BNP, HSTROPN #### [facility] [address] [place] [address] Dr. Xiomy Lennon PROTIMEon 02-23-2023 INR Coag (PPP) [Relative time] 0.95 {INR} Normal [facility] Comment on above: Performed By: #### P TT, PT #### [facility] [address] [place] [address] Dr. Xiomy Lennon INR GUIDELINES SEE BELOW Normal [facility] Comment on above: Result Comment: NIALL RED INR: 2.0 - 3.0 CONDITIONS NOT LISTED BELOW 2.5 - 3.5 FOR PROSTHETIC HEART VALVE REPLACEMENT 2.5 - 3.5 RECURRENT THROMBOSIS Performed By: #### P TT, PT #### [facility] [address] [place] [address] Dr. Xiomy Lennon PT Coag (PPP) [Time] 10.1 s Normal 9.0-11.6 [facility] Comment on above: Performed By: #### P TT, PT #### [facility] [address] [place] [address] Dr. Xiomy Lennon PTTon 02-23-2023 aPTT Coag (Bld) [Time] 27.2 s Normal 22.3-36.2 Th e [facility] Comment on above: Performed By: #### P TT, PT #### [facility] [address] [place] [address] Dr. Xiomy Lennon TROPONIN, HIGH SENSITIVITYon 02-23-2023 HSTROP 6.2 pg/mL Normal 4.0-51.3 [facility] Comment on above: Result Comment: CUT- OFF POINTS HAVE BEEN ESTABLISHED BASED ON THE FOURTH UNIVERSAL DEFINITIONS OF MYOCARDIAL INFARCTION. THE UPPER REFERENCE LIMIT (URL) OF TROPONIN, DEFINED THE 99TH PERCENTILE OF cTnI DISTRIBUTION IN A REFERENCE POPULATION, HAS BEEN CONFIRMED THE DECISION THRESHOLD FOR [place] DIAGNOSIS. Performed By: #### C MP, BNP, HSTROPN #### [facility] [address] [place] [address] Dr. Xiomy Lennon XR CHEST 1 Von [...] by: JUSTINE MARES Date: 2023-02-23 19:05 Normal [facility] HEMOGLOBINon 02-01-2023 Hemoglobin (Bld) [Mass/Vol] 13.0 g/dL Normal 12.0-16.0 [facility] Comment on above: Performed By: #### H GB #### [facility] [address] [address] [address] Xiomy Lennon PULMONARY FUNCTION TESTon PULMONARY [...] ambulation/activity. 3. Clinical correlation required. Normal [facility] CT LUNG CANCER SCREENINGon 0 01-12-2023 [...] by: MIGUEL MEDEROS Date: 2023-01-12 14:10 Normal [facility] GLYCOHEMOGLOBIN A1Con 2022 ADA RECOMMENDATION SEE BELOW Normal [facility] Comment on above: Result Comment: ADA RECOMMENDED LIMIT 4.0 - 6.0 ADA THERAPEUTIC TARGET < 7.0 ACTION SUGGESTED > 7.0 Performed By: #### A 1C #### [facility] [address] [place] [address] Dr. Xiomy Lennon Glucose [Mass/Vol] 111 mg/dL Normal [facility] Comment on above: Performed By: #### A 1C #### [facility] [address] [address] [address] Xiomy Lennon HbA1c (Bld) [Mass fraction] 5.5 % Normal 4.5-6.2 [facility] Comment on above: Performed By: #### A 1C #### [facility] [address] [address] [address] Xiomy Lennon PROF CHEM 8 (BAS METB)on Anion gap [Moles/Vol] 12.0 mmol/L Normal [facility] Comment on above: Performed By: #### P T, PTT #### [facility] [address] [address] [address] Xiomy Lennon Calcium [Mass/Vol] 10.0 mg/dL Normal 8.5-10.1 [facility] Comment on above: Performed By: #### P T, PTT #### [facility] [address] [place] [address] Dr. Xiomy Lennon Chloride [Moles/Vol] 102 mmol/L Normal 98-107 [facility] Comment on above: Performed By: #### P T, PTT #### [facility] [address] [address] [address] Xiomy Lennon CO2 [Moles/Vol] 30.4 mmol/L Normal 21.0-32.0 [facility] Comment on above: Performed By: #### P T, PTT #### [facility] [address] [address] [address] Xiomy Lennon Creatinine [Mass/Vol] 0.79 mg/dL Normal 0.55-1.02 [facility] Comment on above: Performed By: #### P T, PTT #### [facility] [address] [place] [address] Dr. Xiomy Lennon EGFR-AF WALLISIAN >60 Normal >=60 [facility] Comment on above: Performed By: #### P T, PTT #### [facility] [address] [address] [address] Xiomy Lennon EGFR-NON AF WALLISIAN >60 Normal >=60 [facility] Comment on above: Performed By: #### P T, PTT #### [facility] [address] [place] [address] Dr. Xiomy Lennon Glucose [Mass/Vol] 147 mg/dL Critically high 74-106 [facility] Comment on above: Performed By: #### P T, PTT #### [facility] [address] [address] [address] Xiomy Lennon Potassium [Moles/Vol] 4.4 mmol/L Normal 3.5-5.1 [facility] Comment on above: Performed By: #### P T, PTT #### [facility] [address] [place] [address] Dr. Xiomy Lennon Sodium [Moles/Vol] 140 mmol/L Normal 136-145 [facility] Comment on above: Performed By: #### P T, PTT #### [facility] [address] [place] [address] Dr. Xiomy Lennon Urea nitrogen [Mass/Vol] 18.0 mg/dL Normal 7.0-18.0 [facility] Comment on above: Performed By: #### P T, PTT #### [facility] [address] [address] [address] Xiomy Lennon Urea nitrogen/Creatinine [Mass ratio] 22.8 mg/mg Normal [facility] Comment on above: Performed By: #### P T, PTT #### [facility] [address] [address] [address] Xiomy Lennon Office Visiton 12-24-2022 Follow-up visit [id number] TeresaAliya J 1965 F Date Provider Department Center 12/24/2022 TOSHIA OLIVARES [facility] Family History Problem Relation Age of Onset Coronary artery disease Other Pulmonary embolism Other Deep vein thrombosis Other Family Status - Relation Status Age at Other Level of Service:86029 NM OFFICE/OUTPATIENT ESTABLISHED MOD MDM 30-39 MIN Reason for Visit and Comments: Hypertension [977671] Shortness of Breath [071019] Normal [facility] THEOPHYLLINEon 11-04-2022 THEOPHYLLINE 2.1 ug/mL Critically low 10.0-20.0 [facility] Comment on above: Performed By: #### T HERBERT #### [facility] [address] [address] [address] Xiomy Lennon GLYCOHEMOGLOBIN A1Con 2021 ADA RECOMMENDATION SEE BELOW Normal [facility] Comment on above: Result Comment: ADA RECOMMENDED LIMIT 4.0 - 6.0 ADA THERAPEUTIC TARGET < 7.0 ACTION SUGGESTED > 7.0 Performed By: #### P T, PTT #### [facility] [address] [address] [address] Xiomy Lennon Glucose [Mass/Vol] 120 mg/dL Normal [facility] Comment on above: Performed By: #### P T, PTT #### [facility] [address] [address] [address] Xiomy Lennon HbA1c (Bld) [Mass fraction] 5.8 % Normal 4.5-6.2 [facility] Comment on above: Performed By: #### P T, PTT #### [facility] [address] [address] [address] Xiomy Lennon LIPID PROFILEon 07-28-2022 CHOL-HDL RATIO NORM SEE BELOW Normal [facility] Comment on above: Result Comment: 3.3 - 4.4 LOW RISK 4.4 - 7.1 AVERAGE RISK 7.1 - 11.0 MODERATE RISK >11.0 HIGH RISK Performed By: #### P T, PTT #### [facility] [address] [address] [address] Xiomy Lennon Cholesterol [Mass/Vol] 135 mg/dL Normal <=200 Th [facility] Comment on above: Performed By: #### P T, PTT #### [facility] [address] [address] [address] Xiomy Lennon Cholesterol in HDL [Mass/Vol] 77 mg/dL Critically high 40-60 [facility] Comment on above: Performed By: #### P T, PTT #### [facility] [address] [address] [address] Xiomy Lennon Cholesterol in LDL [Mass/Vol] 44.6 mg/dL Normal [facility] Comment on above: Performed By: #### P T, PTT #### [facility] [address] [address] [address] Xiomy Lennon Cholesterol.total/Chol esterol in HDL [Mass ratio] 1.8 {ratio} Normal [facility] Comment on above: Performed By: #### P T, PTT #### [facility] [address] [address] [address] Xiomy Lennon HDL NORMAL > or = 60 mg/dl - LO W CARDIOVASCULAR RISK <40 mg/dl - HIGH CARDIOVASCULAR RISK Normal [facility] Comment on above: Performed By: #### P T, PTT #### [facility] [address] [address] [address] Xiomy Lennon LDL CALC NORMAL SEE BELOW Normal [facility] Comment on above: Result Comment: <100 mg/dl OPTIMAL 100 - 129 mg/dl NEAR OR ABOVE OPTIMAL 130 - 159 mg/dl BORDERLINE HIGH 160 - 189 mg/dl HIGH >190 mg/dl VERY HIGH Performed By: #### P T, PTT #### [facility] [address] [address] [address] Xiomy Lennon Triglyceride [Mass/Vol] 67 mg/dL Normal <=150 [facility] Comment on above: Performed By: #### P T, PTT #### [facility] [address] [address] [address] Xiomy Lennon VLDL CALC 13.4 mg/dL Normal [facility] Comment on above: Performed By: #### P T, PTT #### [facility] [address] [place] [address] Dr. Xiomy Lennon PROF CHEM 8 (BAS METB)on Anion gap [Moles/Vol] 8.9 mmol/L Normal [facility] Comment on above: Performed By: #### P T, PTT #### [facility] [address] [place] [address] Dr. Xiomy Lennon Calcium [Mass/Vol] 9.7 mg/dL Normal 8.5-10.1 [facility] Comment on above: Performed By: #### P T, PTT #### [facility] [address] [place] [address] Dr. Xiomy Lennon Chloride [Moles/Vol] 99 mmol/L Normal 98-107 [facility] Comment on above: Performed By: #### P T, PTT #### [facility] [address] [place] [address] Dr. Xiomy Lennon CO2 [Moles/Vol] 32.0 mmol/L Normal 21.0-32.0 [facility] Comment on above: Performed By: #### P T, PTT #### [facility] [address] [place] [address] Dr. Xiomy Lennon Creatinine [Mass/Vol] 0.78 mg/dL Normal 0.55-1.02 [facility] Comment on above: Performed By: #### P T, PTT #### [facility] [address] [place] [address] Dr. Xiomy Lennon EGFR-AF WALLISIAN >60 Normal >=60 [facility] Comment on above: Performed By: #### P T, PTT #### [facility] [address] [address] [address] Xiomy Lennon EGFR-NON AF WALLISIAN >60 Normal >=60 [facility] Comment on above: Performed By: #### P T, PTT #### [facility] [address] [address] [address] Xiomy Lennon Glucose [Mass/Vol] 111 mg/dL Critically high 74-106 [facility] Comment on above: Performed By: #### P T, PTT #### [facility] [address] [address] [address] Xiomy Lennon Potassium [Moles/Vol] 3.9 mmol/L Normal 3.5-5.1 [facility] Comment on above: Performed By: #### P T, PTT #### [facility] [address] [address] [address] Xiomy Lennon Sodium [Moles/Vol] 136 mmol/L Normal 136-145 [facility] Comment on above: Performed By: #### P T, PTT #### [facility] [address] [address] [address] Xiomy Lennon Urea nitrogen [Mass/Vol] 10.0 mg/dL Normal 7.0-18.0 [facility] Comment on above: Performed By: #### P T, PTT #### [facility] [address] [address] [address] Xiomy Lennon Urea nitrogen/Creatinine [Mass ratio] 12.8 mg/mg Normal [facility] Comment on above: Performed By: #### P T, PTT #### [facility] [address] [address] [address] Xiomy Lennon MG MAMM SCREEN 3D EMY CADon 04-30-2022 MG MAMM SCREEN 3D EMY CAD Patient: ALIYA MOORE Exam Date: 04/30/2022 : 1965 Gender:F Ordering : ENRIQUE JJ CNP Admission #: [id number] Family : Order #: [id number] CLICK HERE TO VIEW EXAM RADIOLOGY REPORT [...] Treatments None Family Cancers None LOCATION: [facility] BREAST COMPOSITION: Almost entirely fatty. FINDINGS: [...] MD on 04/30/2022 at 10:06 Normal [facility] CBC AUTO DIFFon 03-26-2022 BASO # 0.0 103/ul Normal 0.0-0.1 [facility] Comment on above: Performed By: #### P T, PTT #### [facility] [address] [address] [address] Xiomy Lennon Basophils/100 WBC (Bld) 0.2 % Normal 0.2-2.0 [facility] Comment on above: Performed By: #### P T, PTT #### [facility] [address] [address] [address] Xiomy Lennon EO # 0.2 103/ul Normal 0.0-0.7 [facility] Comment on above: Performed By: #### P T, PTT #### [facility] [address] [address] [address] Xiomy Lennon Eosinophils/100 WBC (Bld) 1.7 % Normal 0.9-7.0 [facility] Comment on above: Performed By: #### P T, PTT #### [facility] [address] [address] [address] Xiomy Lennon Erythrocyte distribution width (RBC) [Ratio] 15.6 % Critically high 11.0-15.0 [facility] Comment on above: Performed By: #### P T, PTT #### [facility] [address] [place] [address] Dr. Xiomy Lennon Hematocrit (Bld) [Volume fraction] 43.4 % Normal 36.0-48.0 [facility] Comment on above: Performed By: #### P T, PTT #### [facility] [address] [place] [address] Dr. Xiomy Lennon Hemoglobin (Bld) [Mass/Vol] 14.0 g/dL Normal 12.0-16.0 [facility] Comment on above: Performed By: #### P T, PTT #### [facility] [address] [place] [address] Dr. Xiomy Lennon IG # 0.04 10e3/ul Critically high 0.00-0.03 [facility] Comment on above: Performed By: #### P T, PTT #### [facility] [address] [place] [address] Dr. Xiomy Lennon IG % 0.4 % Normal 0.0-0.5 [facility] Comment on above: Performed By: #### P T, PTT #### [facility] [address] [place] [address] Dr. Xiomy Lennon LYMPH # 1.2 103/ul Normal 1.2-3.8 [facility] Comment on above: Performed By: #### P T, PTT #### [facility] [address] [place] [address] Dr. Xiomy Lennon Lymphocytes/100 WBC (Bld) 11.4 % Critically low 20.5-60.0 [facility] Comment on above: Performed By: #### P T, PTT #### [facility] [address] [place] [address] Dr. Xiomy Lennon MANUAL DIFF REQ NO Normal [facility] Comment on above: Performed By: #### P T, PTT #### [facility] [address] [place] [address] Dr. Xiomy Lennon MCH (RBC) [Entitic mass] 29.7 pg Normal 26.7-34.0 [facility] Comment on above: Performed By: #### P T, PTT #### [facility] [address] [place] [address] Dr. Xiomy Lennon MCHC (RBC) [Mass/Vol] 32.3 g/dL Normal 29.9-35.2 [facility] Comment on above: Performed By: #### P T, PTT #### [facility] [address] [place] [address] Dr. Xiomy Lennon MCV (RBC) [Entitic vol] 92.1 fL Normal 81.0-99.0 [facility] Comment on above: Performed By: #### P T, PTT #### [facility] [address] [place] [address] Dr. Xiomy Lennon MONO # 0.8 103/ul Normal 0.3-0.8 [facility] Comment on above: Performed By: #### P T, PTT #### [facility] [address] [place] [address] Dr. Xiomy Lennon Monocytes/100 WBC (Bld) 7.9 % Normal 1.7-12.0 [facility] Comment on above: Performed By: #### P T, PTT #### [facility] [address] [place] [address] Dr. Xiomy Lennon NEUT # 8.3 103/ul Critically high 1.4-6.5 [facility] Comment on above: Performed By: #### P T, PTT #### [facility] [address] [place] [address] Dr. Xiomy Lennon Neutrophils/100 WBC (Bld) 78.4 % Critically high 43.0-75.0 [facility] Comment on above: Performed By: #### P T, PTT #### [facility] [address] [place] [address] Dr. Xiomy Lennon Platelet mean volume (Bld) [Entitic vol] 11.0 fL Normal 9.5-13.5 [facility] Comment on above: Performed By: #### P T, PTT #### [facility] [address] [place] [address] Dr. Xiomy Lennon PLT 196 103/ul Normal 150-450 [facility] Comment on above: Performed By: #### P T, PTT #### [facility] [address] [place] [address] Dr. Xiomy Lennon RBC 4.71 106/ul Normal 4.20-5.40 [facility] Comment on above: Performed By: #### P T, PTT #### [facility] [address] [place] [address] Dr. Xiomy Lennon WBC 10.6 103/ul Normal 4.0-11.0 [facility] Comment on above: Performed By: #### P T, PTT #### [facility] [address] [place] [address] Dr. Xiomy Lennon LIPASEon 03-26-2022 Lipase [Catalytic activity/Vol] 92.0 U/L Normal 73.0-393.0 [facility] Comment on above: Performed By: #### P T, PTT #### [facility] [address] [place] [address] Dr. Xiomy Lennon PROF 14(COMP METB)on 022 Albumin [Mass/Vol] 3.6 g/dL Normal 3.4-5.0 [facility] Comment on above: Performed By: #### P T, PTT #### [facility] [address] [place] [address] Dr. Xiomy Lennon Albumin/Globulin [Mass ratio] 0.7 {ratio} Normal [facility] Comment on above: Performed By: #### P T, PTT #### [facility] [address] [place] [address] Dr. Xiomy Lennon ALP [Catalytic activity/Vol] 78 U/L Normal 46-116 [facility] Comment on above: Performed By: #### P T, PTT #### [facility] [address] [place] [address] Dr. Xiomy Lennon ALT [Catalytic activity/Vol] 25 U/L Normal 14-59 [facility] Comment on above: Performed By: #### P T, PTT #### [facility] [address] [address] [address] Xiomy Lennon Anion gap [Moles/Vol] 9.4 mmol/L Normal [facility] Comment on above: Performed By: #### P T, PTT #### [facility] [address] [place] [address] Dr. Xiomy Lennon AST [Catalytic activity/Vol] 19 U/L Normal 15-37 [facility] Comment on above: Performed By: #### P T, PTT #### [facility] [address] [address] [address] Xiomy Lennon Bilirubin [Mass/Vol] 0.3 mg/dL Normal 0.2-1.0 [facility] Comment on above: Performed By: #### P T, PTT #### [facility] [address] [place] [address] Dr. Xiomy Lennon Calcium [Mass/Vol] 9.9 mg/dL Normal 8.5-10.1 [facility] Comment on above: Performed By: #### P T, PTT #### [facility] [address] [place] [address] Dr. Xiomy Lennon Chloride [Moles/Vol] 96 mmol/L Critically low 98-107 [facility] Comment on above: Performed By: #### P T, PTT #### [facility] [address] [place] [address] Dr. Xiomy Lennon CO2 [Moles/Vol] 34.6 mmol/L Critically high 21.0-32.0 [facility] Comment on above: Performed By: #### P T, PTT #### [facility] [address] [place] [address] Dr. Xiomy Lennon Creatinine [Mass/Vol] 0.93 mg/dL Normal 0.55-1.02 [facility] Comment on above: Performed By: #### P T, PTT #### [facility] [address] [place] [address] Dr. Xiomy Lennon EGFR-AF WALLISIAN >60 Normal >=60 [facility] Comment on above: Performed By: #### P T, PTT #### [facility] [address] [place] [address] Dr. Xiomy Lennon EGFR-NON AF WALLISIAN >60 Normal >=60 [facility] Comment on above: Performed By: #### P T, PTT #### [facility] [address] [place] [address] Dr. Xiomy Lennon Globulin (S) [Mass/Vol] 5.0 g/dL Normal [facility] Comment on above: Performed By: #### P T, PTT #### [facility] [address] [place] [address] Dr. Xiomy Lennon Glucose [Mass/Vol] 139 mg/dL Critically high 74-106 [facility] Comment on above: Performed By: #### P T, PTT #### [facility] [address] [place] [address] Dr. Xiomy Lennon Potassium [Moles/Vol] 4.0 mmol/L Normal 3.5-5.1 [facility] Comment on above: Performed By: #### P T, PTT #### [facility] [address] [place] [address] Dr. Xiomy Lennon Protein [Mass/Vol] 8.6 g/dL Critically high 6.4-8.2 [facility] Comment on above: Performed By: #### P T, PTT #### [facility] [address] [place] [address] Dr. Xiomy Lennon Sodium [Moles/Vol] 136 mmol/L Normal 136-145 [facility] Comment on above: Performed By: #### P T, PTT #### [facility] [address] [place] [address] Dr. Xiomy Lennon Urea nitrogen [Mass/Vol] 19.0 mg/dL Critically high 7.0-18.0 [facility] Comment on above: Performed By: #### P T, PTT #### [facility] [address] [place] [address] Dr. Xiomy Lennon Urea nitrogen/Creatinine [Mass ratio] 20.4 mg/mg Normal [facility] Comment on above: Performed By: #### P T, PTT #### [facility] [address] [address] [address] Xiomy Lennon PROTIMEon 03-26-2022 INR Coag (PPP) [Relative time] 0.99 {INR} Normal [facility] Comment on above: Performed By: #### P T, PTT #### [facility] [address] [place] [address] Dr. Xiomy Lennon INR GUIDELINES SEE BELOW Normal [facility] Comment on above: Result Comment: NIALL RED INR: 2.0 - 3.0 CONDITIONS NOT LISTED BELOW 2.5 - 3.5 FOR PROSTHETIC HEART VALVE REPLACEMENT 2.5 - 3.5 RECURRENT THROMBOSIS Performed By: #### P T, PTT #### [facility] [address] [place] [address] Dr. Xiomy Lennon PT Coag (PPP) [Time] 10.7 s Normal 9.0-11.6 [facility] Comment on above: Performed By: #### P T, PTT #### [facility] [address] [place] [address] Dr. Xiomy Lennon PTTon 03-26-2022 aPTT Coag (Bld) [Time] 26.9 s Normal 22.3-36.2 Th e [facility] Comment on above: Performed By: #### P T, PTT #### [facility] [address] [place] [address] Dr. Xiomy Lennon TROPONIN, HIGH SENSITIVITYon 03-26-2022 HSTROP 8.0 pg/mL Normal 4.0-51.3 [facility] Comment on above: Result Comment: CUT- OFF POINTS HAVE BEEN ESTABLISHED BASED ON THE FOURTH UNIVERSAL DEFINITIONS OF MYOCARDIAL INFARCTION. THE UPPER REFERENCE LIMIT (URL) OF TROPONIN, DEFINED THE 99TH PERCENTILE OF cTnI DISTRIBUTION IN A REFERENCE POPULATION, HAS BEEN CONFIRMED THE DECISION THRESHOLD FOR [place] DIAGNOSIS. Performed By: #### P T, PTT #### [facility] [address] [place] [address] Dr. Xiomy Lennon US SINGLE QUAD RT [...] by: KENDY HERRERA Date: 2022-03-26 19:58 Normal [facility] Basic Metabolic Panelon 07-01 Calcium [Mass/Vol] 9.3 mg/dL Normal 8.2-10.2 [facility] Comment on above: Performed By: #### [place] [address] [facility], COVID-19 [place], SOFIANEG #### [facility] [address] Chloride [Moles/Vol] 89 mmol/L Low 95-114 [facility] Comment on above: Performed By: #### [place] [address] [facility], COVID-19 [place], SOFIANEG #### [facility] [address] [place] [address] [facility] CO2 [Moles/Vol] 35.4 mmol/L High 22.0-30.0 [facility] Comment on above: Performed By: #### [place] [address] [facility], COVID-19 [place], SOFIANEG #### [facility] [address] [place] [address] [place] Creatinine [Mass/Vol] 0.81 mg/dL Normal 0.44-1.03 [facility] Comment on above: Performed By: #### [place] [address] [facility], COVID-19 [place], SOFIANEG #### [facility] [address] [place] [address] [place] Creatinine Clr Calc Pharmacy 107.64 [facility] Comment on above: Performed By: #### [address] [place] [address] [facility], COVID-19 [place], SOFIANEG #### [facility] [address] [place] [address] [facility] Estimated GFR ( Hilary > 60 [facility] Comment on above: Result Comment: GFR estimated reference range: According to KDOQI guidelines, <60 ml/min/1.73m2 is sufficient to diagnose a patient with chronic kidney disease. Performed By: #### [place] [address] [facility], COVKS- [place], SOFIANEG #### [facility] [address] Estimated GFR (Non- Am > 60 Normal [facility] Comment on above: Performed By: #### [place] [address] [facility], [facility], SOFIANEG #### [facility] [address] Glucose [Mass/Vol] 94 mg/dL Normal 70-100 [facility] Comment on above: Result Comment: [place] Glucose Reference Range is dependent on time and content of last meal. Glucose of more than 200 mg/dL in a nonstressed, ambulatory subject supports the diagnosis of Diabetes Mellitus. ADA recommended reference range Performed By: #### [address] [place] [address] [facility], [facility] [place], SOFIANEG #### [address] Potassium Normal 3.5-5.1 [facility] Comment on above: Result Comment: Spec imen hemolyzed, redraw requested Performed By: #### [place] [address] [facility], [facility] [place], [place]FI[place] #### [address] Sodium [Moles/Vol] 135 mmol/L Low 136-146 [facility] Comment on above: Performed By: #### [address] [place] [address] [facility], [facility] [place], SOFIANEG #### [facility] [address] [id number] [place] Urea nitrogen [Mass/Vol] 19 mg/dL Normal 9- [facility] Comment on above: Performed By: #### [address] [place] [address] [facility], COVID- [place], SOFIANEG #### [address] [id number] [facility] Complete Blood Count Auto Di ffon 07-14-2021 Basophils (Bld) [#/Vol] 0.0 10*3/uL Normal 0.0-0.2 [facility] Comment on above: Result Comment: PERF ORMED BY: [place] [address] PATHOLOGIST TATTOO TECHNICIAN OTILIA BAIRD M.D. Performed By: #### C BC, LACTIC, HS TROP, BMP #### [address] Basophils/100 WBC (Bld) 0.5 % Normal . [facility] Comment on above: Performed By: #### C BC, LACTIC, HS TROP, BMP #### [address] Eosinophils (Bld) [#/Vol] 0.1 10*3/uL Normal 0.0-0.45 [facility] Comment on above: Performed By: #### C BC, LACTIC, HS TROP, BMP #### [address] Eosinophils/100 WBC (Bld) 0.9 % Normal . [facility] Comment on above: Performed By: #### C BC, LACTIC, HS TROP, BMP #### [address] Erythrocyte distribution width (RBC) [Ratio] 18.2 % High 11.9-15.3 [facility] Comment on above: Performed By: #### C BC, LACTIC, HS TROP, BMP #### [address] Hematocrit (Bld) [Volume fraction] 41.6 % Normal 34.0-46.4 [facility] Comment on above: Performed By: #### C BC, LACTIC, HS TROP, BMP #### [address] Hemoglobin (Bld) [Mass/Vol] 13.8 g/dL Normal 11.8-15.4 [facility] Comment on above: Performed By: #### C BC, LACTIC, HS TROP, BMP #### [place] [address] [place] Lymphocytes (Bld) [#/Vol] 1.5 10*3/uL Normal 1.00-4.8 [facility] Comment on above: Performed By: #### C BC, LACTIC, HS TROP, BMP #### [address] Lymphocytes/100 WBC (Bld) 20.5 % Normal . [facility] Comment on above: Performed By: #### C BC, LACTIC, HS TROP, BMP #### [address] MCH (RBC) [Entitic mass] 29.0 pg Normal 24.7-34.3 [facility] Comment on above: Performed By: #### C BC, LACTIC, HS TROP, BMP #### [address] MCV (RBC) [Entitic vol] 87.8 fL Normal 80-100 [facility] Comment on above: Performed By: #### C BC, LACTIC, HS TROP, BMP #### [address] Mean Corpuscular HGB Conc 33.0 g/dL Normal 32.0-35.0 [facility] Comment on above: Performed By: #### C BC, LACTIC, HS TROP, BMP #### [address] Monocytes (Bld) [#/Vol] 0.8 10*3/uL Normal 0.0-0.8 [facility] Comment on above: Performed By: #### C BC, LACTIC, HS TROP, BMP #### [place] [address] [place] Monocytes/100 WBC (Bld) 11.4 % Normal . [facility] Comment on above: Performed By: #### C BC, LACTIC, HS TROP, BMP #### [address] Neutrophils (Bld) [#/Vol] 4.8 10*3/uL Normal 1.8-7.7 [facility] Comment on above: Performed By: #### C BC, LACTIC, HS TROP, BMP #### [facility] [address] Neutrophils/100 WBC (Bld) 66.7 % Normal . [facility] Comment on above: Performed By: #### C BC, LACTIC, HS TROP, BMP #### [address] Nucleated RBC/100 WBC (Bld) [Ratio] 0.1 % Normal 0-0.5 [facility] Comment on above: Performed By: #### C BC, LACTIC, HS TROP, BMP #### [address] Platelet mean volume (Bld) [Entitic vol] 9.5 fL Normal 6.3-10.7 [facility] Comment on above: Performed By: #### C BC, LACTIC, HS TROP, BMP #### [address] Platelets (Bld) [#/Vol] 153 10*3/uL Normal 150-450 [facility] Comment on above: Performed By: #### C BC, LACTIC, HS TROP, BMP #### [address] RBC (Bld) [#/Vol] 4.74 10*6/uL Normal 3.60-5.00 [facility] Comment on above: Performed By: #### C BC, LACTIC, HS TROP, BMP #### [address] WBC (Bld) [#/Vol] 7.1 10*3/uL Normal 4.5-11.0 [facility] Comment on above: Performed By: #### C BC, LACTIC, HS TROP, BMP #### [address] Glucose Poct Glucometerson 0 07-14-2021 Commemt1 Glu2: Cleaned Meter Normal [facility] Comment on above: Result Comment: PERF ORMED BY: [place] [address] PATHOLOGIST TATTOO TECHNICIAN OTILIA BAIRD M.D. Performed By: #### [address] [place] [address] [facility], COVID-19 [place], SOFIANEG #### [facility] [address] [id number] [facility] Glucose [Mass/Vol] 130 mg/dL Normal [facility] Comment on above: Result Comment: [place] om Glucose Reference Range is dependent on time and content of last meal. Glucose of more than 200 mg/dL in a nonstressed, ambulatory subject supports the diagnosis of Diabetes Mellitus. Performed By: #### [address] [place] [address] [facility], COVID-19 [place], SOFIANEG #### [address] Commemt1 Glu2: Cleaned Meter [facility] Comment on above: Result Comment: PERF ORMED BY: [place] [address] PATHOLOGIST TATTOO TECHNICIAN OTILIA BAIRD M.D. Performed By: #### C BC, LACTIC, HS TROP, BMP #### [address] [id number] [place] Glucose [Mass/Vol] 102 mg/dL Normal [facility] Comment on above: Result Comment: [place] om Glucose Reference Range is dependent on time and content of last meal. Glucose of more than 200 mg/dL in a nonstressed, ambulatory subject supports the diagnosis of Diabetes Mellitus. Performed By: #### C BC, LACTIC, HS TROP, BMP #### [address] [id number] [place] Commemt1 Glu2: Cleaned Meter [facility] Comment on above: Result Comment: PERF ORMED BY: [place] [address] PATHOLOGIST TATTOO TECHNICIAN OTILIA BAIRD M.D. Performed By: #### C BC, LACTIC, HS TROP, BMP #### [address] [id number] [facility] Glucose [Mass/Vol] 130 mg/dL Normal [facility] Comment on above: Result Comment: [place] om Glucose Reference Range is dependent on time and content of last meal. Glucose of more than 200 mg/dL in a nonstressed, ambulatory subject supports the diagnosis of Diabetes Mellitus. Performed By: #### C BC, LACTIC, HS TROP, BMP #### [address] Magnesiumon 07-14-2021 Magnesium Normal 1.6-2.6 [facility] Comment on above: Result Comment: Spec imen hemolyzed, redraw requested PERFORMED BY: [place] [address] PATHOLOGIST TATTOO TECHNICIAN OTILIA BIARD M.D. Performed By: #### [place] [address] [facility], COVID-19 [place], SOFIANEG #### [address] Redraw Magnesiumon Magnesium [Mass/Vol] 1.9 mg/dL Normal 1.6-2.6 [facility] Comment on above: Order Comment: Speci men hemolyzed, redraw requested Result Comment: PERF ORMED BY: [place] [address] PATHOLOGIST TATTOO TECHNICIAN OTILIA BAIRD M.D. Performed By: #### C [place] [address] [facility], COVID-19 [place], SOFIANEG #### [address] Redraw Potassiumon 1 Potassium [Moles/Vol] 3.7 mmol/L Normal 3.5-5.1 [facility] Comment on above: Order Comment: Speci men hemolyzed, redraw requested Performed By: #### C [place] [address] [facility], COVID-19 [place], SOFIANEG #### [address] Basic Metabolic Panelon 07-01 Calcium [Mass/Vol] 9.3 mg/dL Normal 8.2-10.2 [facility] Comment on above: Performed By: #### C BC, LACTIC, HS TROP, BMP #### [facility] [address] [place] [address] [place] Chloride [Moles/Vol] 92 mmol/L Low 95-114 [facility] Comment on above: Performed By: #### C BC, LACTIC, HS TROP, BMP #### [facility] [address] CO2 [Moles/Vol] 37.7 mmol/L High 22.0-30.0 [facility] Comment on above: Performed By: #### C BC, LACTIC, HS TROP, BMP #### [facility] [address] Creatinine [Mass/Vol] 0.80 mg/dL Normal 0.44-1.03 [facility] Comment on above: Performed By: #### C BC, LACTIC, HS TROP, BMP #### [facility] [address] [place] [address] [place] Creatinine Clr Calc Pharmacy 105.32 [facility] Comment on above: Result Comment: PERF ORMED BY: [place] [address] PATHOLOGIST TATTOO TECHNICIAN OTILIA BAIRD M.D. Performed By: #### C BC, LACTIC, HS TROP, BMP #### [address] Estimated GFR ( Hilary > 60 [facility] Comment on above: Result Comment: GFR estimated reference range: According to KDOQI guidelines, <60 ml/min/1.73m2 is sufficient to diagnose a patient with chronic kidney disease. Performed By: #### C BC, LACTIC, HS TROP, BMP #### [facility] [address] Estimated GFR (Non- Am > 60 [facility] Comment on above: Performed By: #### C BC, LACTIC, HS TROP, BMP #### [facility] [address] Glucose [Mass/Vol] 94 mg/dL Normal 70-100 [facility] Comment on above: Result Comment: [place] Glucose Reference Range is dependent on time and content of last meal. Glucose of more than 200 mg/dL in a nonstressed, ambulatory subject supports the diagnosis of Diabetes Mellitus. ADA recommended reference range Performed By: #### C BC, LACTIC, HS TROP, BMP #### [facility] [address] Potassium [Moles/Vol] 3.6 mmol/L Normal 3.5-5.1 [facility] Comment on above: Performed By: #### C BC, LACTIC, HS TROP, BMP #### [facility] [address] Sodium [Moles/Vol] 139 mmol/L Normal 136-146 [facility] Comment on above: Performed By: #### C BC, LACTIC, HS TROP, BMP #### [address] Urea nitrogen [Mass/Vol] 18 mg/dL Normal 9-23 [facility] Comment on above: Performed By: #### C BC, LACTIC, HS TROP, BMP #### [address] Glucose Poct Glucometerson 0 07-13-2021 Commemt1 Glu2: Cleaned Meter [facility] Comment on above: Result Comment: PERF ORMED BY: [place] [address] PATHOLOGIST TATTOO TECHNICIAN OTILIA BAIRD M.D. Performed By: #### C BC, LACTIC, HS TROP, BMP #### [address] Glucose [Mass/Vol] 180 mg/dL Normal [facility] Comment on above: Result Comment: [facility] Glucose Reference Range is dependent on time and content of last meal. Glucose of more than 200 mg/dL in a nonstressed, ambulatory subject supports the diagnosis of Diabetes Mellitus. Performed By: #### C BC, LACTIC, HS TROP, BMP #### [address] Commemt1 Glu2: Cleaned Meter [facility] Comment on above: Result Comment: PERF ORMED BY: [place] [address] PATHOLOGIST TATTOO TECHNICIAN OTILIA BAIRD M.D. Performed By: #### C BC, LACTIC, HS TROP, BMP #### [place] [address] [place] Glucose [Mass/Vol] 128 mg/dL Normal [facility] Comment on above: Result Comment: [place] om Glucose Reference Range is dependent on time and content of last meal. Glucose of more than 200 mg/dL in a nonstressed, ambulatory subject supports the diagnosis of Diabetes Mellitus. Performed By: #### C BC, LACTIC, HS TROP, BMP #### [address] Glucose [Mass/Vol] 95 mg/dL Normal [facility] Comment on above: Result Comment: [place] om Glucose Reference Range is dependent on time and content of last meal. Glucose of more than 200 mg/dL in a nonstressed, ambulatory subject supports the diagnosis of Diabetes Mellitus. PERFORMED BY: [place] [address] PATHOLOGIST TATTOO TECHNICIAN OTILIA BAIRD M.D. Performed By: #### C BC, LACTIC, HS TROP, BMP #### [address] Basic Metabolic Panelon 07-01 Calcium [Mass/Vol] 9.3 mg/dL Normal 8.2-10.2 [facility] Comment on above: Performed By: #### C BC, LACTIC, HS TROP, BMP #### [address] [place] [id number] [place] Chloride [Moles/Vol] 86 mmol/L Low 95-114 [facility] Comment on above: Performed By: #### C BC, LACTIC, HS TROP, BMP #### [place] [address] [place] CO2 [Moles/Vol] 43.4 mmol/L High 22.0-30.0 [facility] Comment on above: Performed By: #### C BC, LACTIC, HS TROP, BMP #### [address] Creatinine [Mass/Vol] 0.86 mg/dL Normal 0.44-1.03 [facility] Comment on above: Performed By: #### C BC, LACTIC, HS TROP, BMP #### [address] Creatinine Clr Calc Pharmacy 103.59 [facility] Comment on above: Result Comment: PERF ORMED BY: [place] [address] PATHOLOGIST TATTOO TECHNICIAN OTILIA BAIRD M.D. Performed By: #### C BC, LACTIC, HS TROP, BMP #### [address] Estimated GFR ( Hilary > 60 [facility] Comment on above: Result Comment: GFR estimated reference range: According to KDOQI guidelines, <60 ml/min/1.73m2 is sufficient to diagnose a patient with chronic kidney disease. Performed By: #### C BC, LACTIC, HS TROP, BMP #### [address] Estimated GFR (Non- Am > 60 [facility] Comment on above: Performed By: #### C BC, LACTIC, HS TROP, BMP #### [address] Glucose [Mass/Vol] 94 mg/dL Normal 70-100 [facility] Comment on above: Result Comment: [place] Glucose Reference Range is dependent on time and content of last meal. Glucose of more than 200 mg/dL in a nonstressed, ambulatory subject supports the diagnosis of Diabetes Mellitus. ADA recommended reference range Performed By: #### C BC, LACTIC, HS TROP, BMP #### [address] Potassium [Moles/Vol] 3.6 mmol/L Normal 3.5-5.1 [facility] Comment on above: Performed By: #### C BC, LACTIC, HS TROP, BMP #### [address] [place] [address] [facility] Sodium [Moles/Vol] 139 mmol/L Normal 136-146 [facility] Comment on above: Performed By: #### C BC, LACTIC, HS TROP, BMP #### [facility] [address] [id number] [facility] Urea nitrogen [Mass/Vol] 18 mg/dL Normal - [facility] Comment on above: Performed By: #### C BC, LACTIC, HS TROP, BMP #### [facility] [address] [id number] [facility] Glucose Poct Glucometerson 0 07-12-2021 Glucose [Mass/Vol] 138 mg/dL Normal [facility] Comment on above: Result Comment: [place] om Glucose Reference Range is dependent on time and content of last meal. Glucose of more than 200 mg/dL in a nonstressed, ambulatory subject supports the diagnosis of Diabetes Mellitus. PERFORMED BY: [place] [address] PATHOLOGIST TATTOO TECHNICIAN OTILIA BAIRD M.D. Performed By: #### C BC, LACTIC, HS TROP, BMP #### [address] Commemt1 Glu2: Cleaned Meter [facility] Comment on above: Result Comment: PERF ORMED BY: [place] [address] PATHOLOGIST TATTOO TECHNICIAN OTILIA BAIRD M.D. Performed By: #### C BC, LACTIC, HS TROP, BMP #### [facility] [address] [id number] [facility] Glucose [Mass/Vol] 255 mg/dL Normal [facility] Comment on above: Result Comment: [place] om Glucose Reference Range is dependent on time and content of last meal. Glucose of more than 200 mg/dL in a nonstressed, ambulatory subject supports the diagnosis of Diabetes Mellitus. Performed By: #### C BC, LACTIC, HS TROP, BMP #### [facility] [address] Commemt1 Glu2: Cleaned Meter Normal [facility] Comment on above: Result Comment: PERF ORMED BY: [place] [address] PATHOLOGIST TATTOO TECHNICIAN OTILIA BAIRD M.D. Performed By: #### C BC, LACTIC, HS TROP, BMP #### [place] [id number] [facility] Glucose [Mass/Vol] 133 mg/dL Normal [facility] Comment on above: Result Comment: [place] om Glucose Reference Range is dependent on time and content of last meal. Glucose of more than 200 mg/dL in a nonstressed, ambulatory subject supports the diagnosis of Diabetes Mellitus. Performed By: #### C BC, LACTIC, HS TROP, BMP #### [address] Commemt1 Glu2: Cleaned Meter Normal [facility] Comment on above: Result Comment: PERF ORMED BY: [place] [address] PATHOLOGIST TATTOO TECHNICIAN OTILIA BAIRD M.D. Performed By: #### C BC, LACTIC, HS TROP, BMP #### [address] Glucose [Mass/Vol] 100 mg/dL Normal [facility] Comment on above: Result Comment: [place] om Glucose Reference Range is dependent on time and content of last meal. Glucose of more than 200 mg/dL in a nonstressed, ambulatory subject supports the diagnosis of Diabetes Mellitus. Performed By: #### C BC, LACTIC, HS TROP, BMP #### [place] [id number] [facility] Basic Metabolic Panelon 07-01 Calcium [Mass/Vol] 9.5 mg/dL Normal 8.2-10.2 [facility] Comment on above: Performed By: #### C BC, LACTIC, HS TROP, BMP #### [place] [id number] [place] Chloride [Moles/Vol] 85 mmol/L Low 95-114 [facility] Comment on above: Performed By: #### C BC, LACTIC, HS TROP, BMP #### [facility] [address] CO2 [Moles/Vol] 39.6 mmol/L High 22.0-30.0 [facility] Comment on above: Performed By: #### C BC, LACTIC, HS TROP, BMP #### [facility] [address] Creatinine [Mass/Vol] 0.99 mg/dL Normal 0.44-1.03 [facility] Comment on above: Performed By: #### C BC, LACTIC, HS TROP, BMP #### [facility] [address] Creatinine [facility] 89.99 [facility] Comment on above: Result Comment: PERF ORMED BY: [place] [address] PATHOLOGIST TATTOO TECHNICIAN OTILIA BAIRD M.D. Performed By: #### C BC, LACTIC, HS TROP, BMP #### [facility] [address] Estimated GFR ( Hilary > 60 [facility] Comment on above: Result Comment: GFR estimated reference range: According to KDOQI guidelines, <60 ml/min/1.73m2 is sufficient to diagnose a patient with chronic kidney disease. Performed By: #### C BC, LACTIC, HS TROP, BMP #### [facility] [address] [place] [address] [place] Estimated GFR (Non- Am 58 [facility] Comment on above: Performed By: #### C BC, LACTIC, HS TROP, BMP #### [facility] [address] [place] [address] [place] Glucose [Mass/Vol] 189 mg/dL High 70-100 [facility] Comment on above: Result Comment: [place] Glucose Reference Range is dependent on time and content of last meal. Glucose of more than 200 mg/dL in a nonstressed, ambulatory subject supports the diagnosis of Diabetes Mellitus. ADA recommended reference range Performed By: #### C BC, LACTIC, HS TROP, BMP #### [facility] [address] [place] [id number] [place] Potassium [Moles/Vol] 4.3 mmol/L Normal 3.5-5.1 [facility] Comment on above: Performed By: #### C BC, LACTIC, HS TROP, BMP #### [facility] [address] [place] [id number] [facility] Sodium [Moles/Vol] 135 mmol/L Low 136-146 [facility] Comment on above: Performed By: #### C BC, LACTIC, HS TROP, BMP #### [facility] [address] [place] [id number] [facility] Urea nitrogen [Mass/Vol] 21 mg/dL Normal 07-23 [facility] Comment on above: Performed By: #### C BC, LACTIC, HS TROP, BMP #### [facility] [address] [place] [id number] [facility] Glucose Poct Glucometerson 0 07-11-2021 Commemt1 Glu2: Cleaned Meter [facility] Comment on above: Result Comment: PERF ORMED BY: [place] [address] PATHOLOGIST TATTOO TECHNICIAN OTILIA BAIRD M.D. Performed By: #### C BC, LACTIC, HS TROP, BMP #### [address] Glucose [Mass/Vol] 202 mg/dL Normal [facility] Comment on above: Result Comment: [facility] Glucose Reference Range is dependent on time and content of last meal. Glucose of more than 200 mg/dL in a nonstressed, ambulatory subject supports the diagnosis of Diabetes Mellitus. Performed By: #### C BC, LACTIC, HS TROP, BMP #### [facility] [address] [place] [address] Commemt1 Glu2: Cleaned Meter [facility] Comment on above: Result Comment: PERF ORMED BY: [facility] [address] [place] [address] PATHOLOGIST TATTOO TECHNICIAN OTILIA BAIRD M.D. Performed By: #### C BC, LACTIC, HS TROP, BMP #### [place] [address] [place] Glucose [Mass/Vol] 249 mg/dL Normal [facility] Comment on above: Result Comment: [place] Glucose Reference Range is dependent on time and content of last meal. Glucose of more than 200 mg/dL in a nonstressed, ambulatory subject supports the diagnosis of Diabetes Mellitus. Performed By: #### C BC, LACTIC, HS TROP, BMP #### [address] Commemt1 Glu2: Cleaned Meter [facility] Comment on above: Result Comment: PERF ORMED BY: [place] [address] PATHOLOGIST TATTOO TECHNICIAN OTILIA BAIRD M.D. Performed By: #### C BC, LACTIC, HS TROP, BMP #### [place] [address] [place] Glucose [Mass/Vol] 141 mg/dL Normal [facility] Comment on above: Result Comment: [place] Glucose Reference Range is dependent on time and content of last meal. Glucose of more than 200 mg/dL in a nonstressed, ambulatory subject supports the diagnosis of Diabetes Mellitus. Performed By: #### C BC, LACTIC, HS TROP, BMP #### [address] Commemt1 Glu2: Cleaned Meter Normal [facility] Comment on above: Result Comment: PERF ORMED BY: [place] [address] PATHOLOGIST TATTOO TECHNICIAN OTILIA BAIRD M.D. Performed By: #### C BC, LACTIC, HS TROP, BMP #### [place] [address] [place] Glucose [Mass/Vol] 103 mg/dL Normal [facility] Comment on above: Result Comment: [place] Glucose Reference Range is dependent on time and content of last meal. Glucose of more than 200 mg/dL in a nonstressed, ambulatory subject supports the diagnosis of Diabetes Mellitus. Performed By: #### C BC, LACTIC, HS TROP, BMP #### [facility] [address] [place] [address] Arterial Blood [place] 021 ABG Base Excess 17.0 mmol/L High -3.0-3.0 [facility] Comment on above: Performed By: #### C BC, LACTIC, HS TROP, BMP #### [address] ABG Frac Inspired O2 60 % Normal [facility] Comment on above: Performed By: #### C BC, LACTIC, HS TROP, BMP #### [address] ABG Oxygen Content 7.6 mmol/L Normal 6.6-9.7 [facility] Comment on above: Performed By: #### C BC, LACTIC, HS TROP, BMP #### [address] ABG Oxygen Saturation 94.3 % Low 95.0-100.0 [facility] Comment on above: Performed By: #### C BC, LACTIC, HS TROP, BMP #### [address] ABG PCO2 90.7 mm[Hg] Off scale high 35.0-45.0 [facility] Comment on above: Performed By: #### C BC, LACTIC, HS TROP, BMP #### [facility] [address] [place] [address] ABG PH 7.34 Low 7.35-7.45 [facility] Comment on above: Performed By: #### C BC, LACTIC, HS TROP, BMP #### [address] ABG PO2 77.7 mm[Hg] Low 80.0-100.0 [facility] Comment on above: Performed By: #### C BC, LACTIC, HS TROP, BMP #### [place] [address] [place] CO2 [Moles/Vol] 50.1 mmol/L High 23.0-27.0 [facility] Comment on above: Performed By: #### C BC, LACTIC, HS TROP, BMP #### [address] HCO3 (Bld) [Moles/Vol] 47.3 mmol/L High 23.0-29.0 [facility] Comment on above: Performed By: #### C BC, LACTIC, HS TROP, BMP #### [address] Respiratory Critical [facility] Comment on above: Result Comment: Crit ical Value called on: 07/10/2021 at 05:01 PERFORMED BY: [place] [address] PATHOLOGIST TATTOO TECHNICIAN OTILIA BAIRD M.D. Performed By: #### C BC, LACTIC, HS TROP, BMP #### [address] Set Respiratory Rate 12 Normal [facility] Comment on above: Performed By: #### C BC, LACTIC, HS TROP, BMP #### [address] VBG Draw Site Right Radial [facility] Comment on above: Performed By: #### C BC, LACTIC, HS TROP, BMP #### [address] Basic Metabolic Panelon 07-01 Calcium [Mass/Vol] 9.4 mg/dL Normal 8.2-10.2 [facility] Comment on above: Performed By: #### C BC, LACTIC, HS TROP, BMP #### [address] Chloride [Moles/Vol] 88 mmol/L Low 95-114 [facility] Comment on above: Performed By: #### C BC, LACTIC, HS TROP, BMP #### [address] CO2 [Moles/Vol] 41.2 mmol/L High 22.0-30.0 [facility] Comment on above: Performed By: #### C BC, LACTIC, HS TROP, BMP #### [facility] [address] Creatinine [Mass/Vol] 0.74 mg/dL Normal 0.44-1.03 [facility] Comment on above: Performed By: #### C BC, LACTIC, HS TROP, BMP #### [facility] [address] [place] [address] [place] Creatinine [facility]r [facility]c Pharmacy 122.16 [facility] Comment on above: Result Comment: PERF ORMED BY: [place] [address] PATHOLOGIST TATTOO TECHNICIAN OTILIA BAIRD M.D. Performed By: #### C BC, LACTIC, HS TROP, BMP #### [address] Estimated GFR ( Hilary > 60 [facility] Comment on above: Result Comment: GFR estimated reference range: According to KDOQI guidelines, <60 ml/min/1.73m2 is sufficient to diagnose a patient with chronic kidney disease. Performed By: #### C BC, LACTIC, HS TROP, BMP #### [address] Estimated GFR (Non- Am > 60 [facility] Comment on above: Performed By: #### C BC, LACTIC, HS TROP, BMP #### [address] Glucose [Mass/Vol] 94 mg/dL Normal 70-100 [facility] Comment on above: Result Comment: [place] Glucose Reference Range is dependent on time and content of last meal. Glucose of more than 200 mg/dL in a nonstressed, ambulatory subject supports the diagnosis of Diabetes Mellitus. ADA recommended reference range Performed By: #### C BC, LACTIC, HS TROP, BMP #### [address] Potassium [Moles/Vol] 3.9 mmol/L Normal 3.5-5.1 [facility] Comment on above: Performed By: #### C BC, LACTIC, HS TROP, BMP #### [facility] [address] [place] [address] [place] Sodium [Moles/Vol] 138 mmol/L Normal 136-146 [facility] Comment on above: Performed By: #### C BC, LACTIC, HS TROP, BMP #### [facility] [address] Urea nitrogen [Mass/Vol] 15 mg/dL Normal 9-23 [facility] Comment on above: Performed By: #### C BC, LACTIC, HS TROP, BMP #### [facility] [address] ECH echo transthoracicon ECH echo transthoracic [facility] Main [place] [address] [place] [address] Echocardiogram Signed Patient: Aliya Moore MR#: [id number] : 1965 Acct:[id number] Age/Sex: 55 / F ADM Date: 07/09/21 Loc: Room: [address] [place] [address] Type: ADM IN Attending Dr: Colby Camara [...] 07/10/21 1037 Signed By: 07/10/21 1324 Normal [facility] Glucose Poct Glucometerson 0 07-10-2021 Commemt1 Glu2: Cleaned Meter [facility] Comment on above: Result Comment: PERF ORMED BY: [facility] [address] [place] [address] PATHOLOGIST TATTOO TECHNICIAN OTILIA BAIRD M.D. Performed By: #### C BC, LACTIC, HS TROP, BMP #### [place] [address] [place] Glucose [Mass/Vol] 124 mg/dL Normal [facility] Comment on above: Result Comment: [place] om Glucose Reference Range is dependent on time and content of last meal. Glucose of more than 200 mg/dL in a nonstressed, ambulatory subject supports the diagnosis of Diabetes Mellitus. Performed By: #### C BC, LACTIC, HS TROP, BMP #### [address] Commemt1 Glu2: Cleaned Meter [facility] Comment on above: Result Comment: PERF ORMED BY: [place] [address] PATHOLOGIST TATTOO TECHNICIAN OTILIA BAIRD M.D. Performed By: #### C BC, LACTIC, HS TROP, BMP #### [address] Glucose [Mass/Vol] 293 mg/dL Normal [facility] Comment on above: Result Comment: [place] Glucose Reference Range is dependent on time and content of last meal. Glucose of more than 200 mg/dL in a nonstressed, ambulatory subject supports the diagnosis of Diabetes Mellitus. Performed By: #### C BC, LACTIC, HS TROP, BMP #### [address] Commemt1 Glu2: Cleaned Meter [facility] Comment on above: Result Comment: PERF ORMED BY: [place] [address] PATHOLOGIST TATTOO TECHNICIAN OTILIA BAIRD M.D. Performed By: #### C BC, LACTIC, HS TROP, BMP #### [place] [address] [place] Glucose [Mass/Vol] 140 mg/dL Normal [facility] Comment on above: Result Comment: [place] Glucose Reference Range is dependent on time and content of last meal. Glucose of more than 200 mg/dL in a nonstressed, ambulatory subject supports the diagnosis of Diabetes Mellitus. Performed By: #### C BC, LACTIC, HS TROP, BMP #### [place] [address] Glucose [Mass/Vol] 105 mg/dL Normal [facility] Comment on above: Result Comment: [facility] Glucose Reference Range is dependent on time and content of last meal. Glucose of more than 200 mg/dL in a nonstressed, ambulatory subject supports the diagnosis of Diabetes Mellitus. PERFORMED BY: [place] [address] PATHOLOGIST TATTOO TECHNICIAN OTILIA BAIRD M.D. Performed By: #### C BC, LACTIC, HS TROP, BMP #### [address] B-Type Natriuretic Peptideon 07-09-2021 Natriuretic peptide B (Bld) [Mass/Vol] 121.0 pg/mL High 5-100 [facility] Comment on above: Result Comment: PERF ORMED BY: [place] [address] PATHOLOGIST TATTOO TECHNICIAN OTILIA BAIRD M.D. Performed By: #### C BC, LACTIC, HS TROP, BMP #### [address] Basic Metabolic Panelon Calcium [Mass/Vol] 9.0 mg/dL Normal 8.2-10.2 [facility] Comment on above: Performed By: #### C BC, LACTIC, HS TROP, BMP #### [place] [address] [place] Chloride [Moles/Vol] 92 mmol/L Low 95-114 [facility] Comment on above: Performed By: #### C BC, LACTIC, HS TROP, BMP #### [place] [address] [place] CO2 [Moles/Vol] 36.9 mmol/L High 22.0-30.0 [facility] Comment on above: Performed By: #### C BC, LACTIC, HS TROP, BMP #### [address] Creatinine [Mass/Vol] 0.66 mg/dL Normal 0.44-1.03 [facility] Comment on above: Performed By: #### C BC, LACTIC, HS TROP, BMP #### [facility] [address] Creatinine Clr Calc Pharmacy 137.69 [facility] Comment on above: Result Comment: PERF ORMED BY: [place] [address] PATHOLOGIST TATTOO TECHNICIAN OTILIA BAIRD M.D. Performed By: #### C BC, LACTIC, HS TROP, BMP #### [facility] [address] Estimated GFR ( Hilary > 60 [facility] Comment on above: Result Comment: GFR estimated reference range: According to KDOQI guidelines, <60 ml/min/1.73m2 is sufficient to diagnose a patient with chronic kidney disease. Performed By: #### C BC, LACTIC, HS TROP, BMP #### [facility] [address] Estimated GFR (Non- Am > 60 [facility] Comment on above: Performed By: #### C BC, LACTIC, HS TROP, BMP #### [address] Glucose [Mass/Vol] 119 mg/dL High 70-100 [facility] Comment on above: Result Comment: [place] om Glucose Reference Range is dependent on time and content of last meal. Glucose of more than 200 mg/dL in a nonstressed, ambulatory subject supports the diagnosis of Diabetes Mellitus. ADA recommended reference range Performed By: #### C BC, LACTIC, HS TROP, BMP #### [facility] [address] Potassium [Moles/Vol] 4.5 mmol/L Normal 3.5-5.1 [facility] Comment on above: Performed By: #### C BC, LACTIC, HS TROP, BMP #### [facility] [address] Sodium [Moles/Vol] 137 mmol/L Normal 136-146 [facility] Comment on above: Performed By: #### C BC, LACTIC, HS TROP, BMP #### [facility] [address] [place] [id number] [place] Urea nitrogen [Mass/Vol] 9 mg/dL Normal 9-23 [facility] Comment on above: Performed By: #### C BC, LACTIC, HS TROP, BMP #### [facility] [address] [place] [id number] [facility] COVID-19 Antigenon 1 COVID-19 Antigen [...] Space Valdemar Disclaimer The Valdemar SARS Antigen ROWYD does not differentiate Valdemar Disclaimer between SARS-CoV and SARS-CoV-2. COVID19 Blank Space Valdemar Disclaimer This test was developed and its performance Valdemar Disclaimer characteristic determined by [employer] and Valdemar Disclaimer validated at [facility]. This Valdemar Disclaimer test has not [...] is terminated or revoked sooner. PERFORMED BY: [place] [address] PATHOLOGIST TATTOO TECHNICIAN OTILIA BAIRD M.D. 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 This test has not been FDA [...] is terminated or revoked sooner. PERFORMED BY: [place] [address] PATHOLOGIST TATTOO TECHNICIAN OTILIA BAIRD M.D. Performed By: #### C OVID 19 [facility], COVID-19 VALDEMAR, SOFIANEG #### [address] Complete Blood Count Auto Di ffon 07-09-2021 Basophils (Bld) [#/Vol] 0.0 10*3/uL Normal 0.0-0.2 [facility] Comment on above: Result Comment: PERF ORMED BY: [place] [address] PATHOLOGIST TATTOO TECHNICIAN OTILIA BAIRD M.D. Performed By: #### C BC, LACTIC, HS TROP, BMP #### [address] Basophils/100 WBC (Bld) 0.4 % Normal . [facility] Comment on above: Performed By: #### C BC, LACTIC, HS TROP, BMP #### [address] Eosinophils (Bld) [#/Vol] 0.2 10*3/uL Normal 0.0-0.45 [facility] Comment on above: Performed By: #### C BC, LACTIC, HS TROP, BMP #### [address] Eosinophils/100 WBC (Bld) 2.5 % Normal . [facility] Comment on above: Performed By: #### C BC, LACTIC, HS TROP, BMP #### [address] Erythrocyte distribution width (RBC) [Ratio] 18.9 % High 11.9-15.3 [facility] Comment on above: Performed By: #### C BC, LACTIC, HS TROP, BMP #### [address] Hematocrit (Bld) [Volume fraction] 39.5 % Normal 34.0-46.4 [facility] Comment on above: Performed By: #### C BC, LACTIC, HS TROP, BMP #### [address] Hemoglobin (Bld) [Mass/Vol] 12.8 g/dL Normal 11.8-15.4 [facility] Comment on above: Performed By: #### C BC, LACTIC, HS TROP, BMP #### [address] Lymphocytes (Bld) [#/Vol] 0.7 10*3/uL Low 1.00-4.8 [facility] Comment on above: Performed By: #### C BC, LACTIC, HS TROP, BMP #### [address] Lymphocytes/100 WBC (Bld) 9.3 % Normal . [facility] Comment on above: Performed By: #### C BC, LACTIC, HS TROP, BMP #### [address] MCH (RBC) [Entitic mass] 28.8 pg Normal 24.7-34.3 [facility] Comment on above: Performed By: #### C BC, LACTIC, HS TROP, BMP #### [address] MCV (RBC) [Entitic vol] 89.1 fL Normal 80-100 [facility] Comment on above: Performed By: #### C BC, LACTIC, HS TROP, BMP #### [facility] [address] Mean Corpuscular HGB Conc 32.4 g/dL Normal 32.0-35.0 [facility] Comment on above: Performed By: #### C BC, LACTIC, HS TROP, BMP #### [facility] [address] Monocytes (Bld) [#/Vol] 0.7 10*3/uL Normal 0.0-0.8 [facility] Comment on above: Performed By: #### C BC, LACTIC, HS TROP, BMP #### [address] Monocytes/100 WBC (Bld) 8.4 % Normal . [facility] Comment on above: Performed By: #### C BC, LACTIC, HS TROP, BMP #### [facility] [address] Neutrophils (Bld) [#/Vol] 6.4 10*3/uL Normal 1.8-7.7 [facility] Comment on above: Performed By: #### C BC, LACTIC, HS TROP, BMP #### [address] Neutrophils/100 WBC (Bld) 79.4 % Normal . [facility] Comment on above: Performed By: #### C BC, LACTIC, HS TROP, BMP #### [facility] [address] [place] [address] [place] Nucleated RBC/100 WBC (Bld) [Ratio] 0.2 % Normal 0-0.5 [facility] Comment on above: Performed By: #### C BC, LACTIC, HS TROP, BMP #### [facility] [address] [place] [address] Platelet mean volume (Bld) [Entitic vol] 9.4 fL Normal 6.3-10.7 [facility] Comment on above: Performed By: #### C BC, LACTIC, HS TROP, BMP #### [address] Platelets (Bld) [#/Vol] 138 10*3/uL Low 150-450 [facility] Comment on above: Performed By: #### C BC, LACTIC, HS TROP, BMP #### [address] RBC (Bld) [#/Vol] 4.44 10*6/uL Normal 3.60-5.00 [facility] Comment on above: Performed By: #### C BC, LACTIC, HS TROP, BMP #### [address] WBC (Bld) [#/Vol] 8.0 10*3/uL Normal 4.5-11.0 [facility] Comment on above: Performed By: #### C BC, LACTIC, HS TROP, BMP #### [address] D-Dimer High Sensitivityon 0 07-09-2021 D-Dimer High Sensitivity 247 ng/mL High 0-243 [facility] Comment on above: Result Comment: The [...] patients due to co-morbid conditions. PERFORMED BY: [place] [address] PATHOLOGIST TATTOO TECHNICIAN OTILIA BAIRD M.D. Performed By: #### C BC, LACTIC, HS TROP, BMP #### [address] ECG 12 lead ECGon 07-09-2021 ECG 12 lead ECG [facility] Main [place] [address] [place] [address] Electrocardiograph Report Signed Patient: Aliya Moore MR#: [id number] : 1965 Acct:[id number] Age/Sex: 55 / F ADM Date: 07/09/21 Loc: Room: [address] [place] [address] Type: ADM IN Attending Dr: Kirk Lopez [...] ECGs available Confirmed by CAROLEE ABDALLA DO ([id number]) on 07/09/2021 1:45:33 AM Referred By: Electronically Signed By:CAROLEE ABDALLA DO Transcribed By: MUS Signed By Carolee Abdalla DO 07/09 0145 [facility] Glucose Poct Glucometerson 0 07-09-2021 Commemt1 Glu2: Cleaned Meter [facility] Comment on above: Result Comment: PERF ORMED BY: [place] [address] PATHOLOGIST TATTOO TECHNICIAN OTILIA BAIRD M.D. Performed By: #### C BC, LACTIC, HS TROP, BMP #### [facility] [address] [place] [id number] [place] Glucose [Mass/Vol] 154 mg/dL [facility] Comment on above: Result Comment: [facility] Glucose Reference Range is dependent on time and content of last meal. Glucose of more than 200 mg/dL in a nonstressed, ambulatory subject supports the diagnosis of Diabetes Mellitus. Performed By: #### C BC, LACTIC, HS TROP, BMP #### [facility] [address] [place], [place] [id number] [place] Glucose [Mass/Vol] 132 mg/dL Normal [facility] Comment on above: Result Comment: [place] om Glucose Reference Range is dependent on time and content of last meal. Glucose of more than 200 mg/dL in a nonstressed, ambulatory subject supports the diagnosis of Diabetes Mellitus. PERFORMED BY: [place] [address] PATHOLOGIST TATTOO TECHNICIAN OTILIA BAIRD M.D. Performed By: #### C BC, LACTIC, HS TROP, BMP #### [place] [address] [place] Glucose [Mass/Vol] 176 mg/dL Normal [facility] Comment on above: Result Comment: [place] om Glucose Reference Range is dependent on time and content of last meal. Glucose of more than 200 mg/dL in a nonstressed, ambulatory subject supports the diagnosis of Diabetes Mellitus. PERFORMED BY: [place] [address] PATHOLOGIST TATTOO TECHNICIAN OTILIA BAIRD M.D. Performed By: #### C BC, LACTIC, HS TROP, BMP #### [facility] [address] [place] [address] [place] Glucose [Mass/Vol] 173 mg/dL Normal [facility] Comment on above: Result Comment: [place] om Glucose Reference Range is dependent on time and content of last meal. Glucose of more than 200 mg/dL in a nonstressed, ambulatory subject supports the diagnosis of Diabetes Mellitus. PERFORMED BY: [place] [address] PATHOLOGIST TATTOO TECHNICIAN OTILIA BAIRD M.D. Performed By: #### G LULS #### Point of Care testing , Lactic Acidon 07-09-2021 Lactate [Moles/Vol] 0.6 mmol/L Normal 0.5-2.2 [facility] Comment on above: Result Comment: PERF ORMED BY: [address] [place] [address] PATHOLOGIST TATTOO TECHNICIAN OTILIA BAIRD M.D. Performed By: #### C BC, LACTIC, HS TROP, BMP #### [facility] [address] Valdemar Ag Negativeon 07-09-20 21 Valdemar Ag Negative Negative Normal Negative [facility] Comment on above: Result Comment: This is a duplicate Valdemar SARS Antigen (ROWDY) result to be used for statistical tracking purpose only. PERFORMED BY: [place] [address] PATHOLOGIST TATTOO TECHNICIAN OTILIA BAIRD M.D. Performed By: #### C OVID 19 MC, COVID-19 VALDEMAR, SOFIANEG #### [facility] [address] [place] [address] Troponin I High Sensitivityo n 07-09-2021 Troponin I High Sensitivity 14 pg/mL Normal 0-15 [facility] Comment on above: Result Comment: PERF ORMED BY: [place] [address] PATHOLOGIST TATTOO TECHNICIAN OTILIA BAIRD M.D. Performed By: #### C BC, LACTIC, HS TROP, BMP #### [facility] [address] [place] [address] Venous Blood Gason 1 CO2 [Moles/Vol] 40.3 mmol/L High 24.0-29.0 [facility] Comment on above: Performed By: #### V BG #### Point of Care testing , HCO3 (Bld) [Moles/Vol] 38.2 mmol/L High 23.0-29.0 [facility] Comment on above: Performed By: #### V BG #### Point of Care testing , Respiratory Critical Normal [facility] Comment on above: Result Comment: Crit ical Value called on: 07/08/2021 at 23:40 PERFORMED BY: [place] [address] PATHOLOGIST TATTOO TECHNICIAN OTILIA BAIRD M.D. Performed By: #### V BG #### Point of Care testing , VBG Base Excess 9.9 mmol/L High -3.0-3.0 [facility] Comment on above: Performed By: #### V BG #### Point of Care testing , VBG Draw Site Other Normal [facility] Comment on above: Performed By: #### V BG #### Point of Care testing , VBG Frac Inspired O2 70 % Normal [facility] Comment on above: Performed By: #### V BG #### Point of Care testing , VBG Oxygen Saturation 94.1 % Off scale high 73.0-76.0 [facility] Comment on above: Performed By: #### V BG #### Point of Care testing , VBG PCO2 70.1 mm[Hg] High 38.0-50.0 [facility] Comment on above: Performed By: #### V BG #### Point of Care testing , VBG PH Venous PH 7.35 Normal 7.32-7.43 [facility] Comment on above: Performed By: #### V BG #### Point of Care testing , VBG PO2 72.4 mm[Hg] High 35.0-45.0 [facility] Comment on above: Performed By: #### V BG #### Point of Care testing , XR chest 1V portableon 07-09 XR chest 1V portable [facility] [place] [address] XRay Report Signed Patient: Aliya Moore MR#: [id number] : 1965 Acct:[id number] Age/Sex: 55 / F ADM Date: 07/09/21 Loc: Room: [address] [place] [address] Type: ADM IN Attending Dr: Kirk Lopez [...] Sheldon Khan M.D.07/09/2021 8:33 AM Dictation Location: [place] [address] Transcribed By: [facility] 07/09/21832 Dictated By: Sheldon Khan DO 07/09/21831 Signed By: 07/09/21832 [facility] Cardiovascular Lab Reporton 06-15-2021 Cardiovascular Lab Report [facility] Patient Name: Teresa [facility] Connie MR #: [id number] Department of Physician: Boo Landers M.D. Division of Service Date: 06/15/2021 Cardiology Birthdate: 1965 Adult Cardiovascular Room #: [address] [place] [address] Cardiovascular Laboratory Report IMPRESSIONS: 1. Mild disease [...] management; given mild coronary artery disease, aspirin, qennmfqu-[id number] intensity statin therapy, beta-aleks, and angiotensin-convertin g enzyme inhibitor are indicated. 4. Follow up with Toshia Sam nurse practitioner in the next 2 to 3 months. 5. Follow up with her family physician as scheduled. PROCEDURES: Ultrasound-guided access to the right common femoral vein, ultrasound-guided access to the right common femoral artery, right heart catheterization, bilateral selective coronary angiography, placement of a 6-Prydeinig MynxGrip closure device. METHODS: After risks, benefits, [...] femoral vein and artery was obtained. A 6-Prydeinig 11 cm sheath was placed in each. [...] the procedure. All catheters were removed. A 6-Prydeinig MynxGrip closure device was deployed per protocol [...] Soto M.D. Date Trans: 06/15/2021 11:37 A/sofía [id number] cc: Toshia Sam, MSN, EXTRACT OPERATOR-C Department Of Surgery [place] [address] [facility] [address] [facility] Vital Signs Date Time Vital Sign Value Performing Clinician Facility 07-24-2024 09:22-0400 Body height 175.3 cm Brea Анна FORMER HAND Work Phone: [facility] 07-24-2024 09:22-0400 Body mass index (BMI) [Ratio] 38.45 kg/m2 Brea Aichholz FORMER HAND Work Phone: [facility] 07-24-2024 09:22-0400 Body temperature 98.29 [degF] Brea Aichyamilaz FORMER HAND Work Phone: [facility] 07-24-2024 09:22-0400 Body weight 118.12 kg Brea Aichholz FORMER HAND Work Phone: [facility] 07-24-2024 09:22-0400 Diastolic blood pressure 82 mm[Hg] Brea Aichholz FORMER HAND Work Phone: [facility] 07-24-2024 09:22-0400 Heart rate 83 /min Brea Aichholz FORMER HAND Work Phone: [facility] 07-24-2024 09:22-0400 Respiratory rate 19 /min Brea Aichholz FORMER HAND Work Phone: [facility] 07-24-2024 09:22-0400 SaO2% (BldA) [Mass fraction] 90 % Brea Aichholz FORMER HAND Work Phone: [facility] 07-24-2024 09:22-0400 Systolic blood pressure 130 mm[Hg] Brea Aichholz FORMER HAND Work Phone: [facility] 07-23-2024 10:37-0400 Body temperature 98.42 [degF] Mariama Javedke [facility] 07-23-2024 10:37-0400 Diastolic blood pressure 69 mm[Hg] Mariama Yuboske [facility] 07-23-2024 10:37-0400 Heart rate 94 /min Mariama Javedke [facility] 07-23-2024 10:37-0400 Mean blood pressure 81 mm[Hg] Mariama Barcenas [facility] 07-23-2024 10:37-0400 Respiratory rate 16 /min Mariama Barcenas [facility] 07-23-2024 10:37-0400 SaO2% (BldA) [Mass fraction] 92 % Mariama Barcenas [facility] 07-23-2024 10:37-0400 Systolic blood pressure 106 mm[Hg] Mariama Barcenas [facility] 01-16-2024 11:17-0400 Body temperature 97.7 [degF] Mariama Barcenas [facility] 01-16-2024 11:17-0400 Diastolic blood pressure 73 mm[Hg] Mariama Yuboske [facility] 01-16-2024 11:17-0400 Heart rate 109 /min Mariama Javedke [facility] 01-16-2024 11:17-0400 Mean blood pressure 92 mm[Hg] Mariama Yuboske [facility] 01-16-2024 11:17-0400 Respiratory rate 18 /min Mariama Yuboske [facility] 01-16-2024 11:17-0400 SaO2% (BldA) [Mass fraction] 94 % Mariama Barcenas [facility] 01-16-2024 11:17-0400 Systolic blood pressure 130 mm[Hg] Mariama Barcenas [facility] 12-05-2023 08:48-0500 Body height 175.3 cm Brea Aicheatherholz FORMER HAND Work Phone: [facility] 12-05-2023 08:48-0500 Body mass index (BMI) [Ratio] 37.51 kg/m2 Brea Aichholz FORMER HAND Work Phone: [facility] 12-05-2023 08:48-0500 Body temperature 97.11 [degF] Brea Angelyhholz FORMER HAND Work Phone: [facility] 12-05-2023 08:48-0500 Body weight 115.21 kg Brea Aichholz FORMER HAND Work Phone: [facility] 12-05-2023 08:48-0500 Diastolic blood pressure 68 mm[Hg] Brea Aichholz FORMER HAND Work Phone: [facility] 12-05-2023 08:48-0500 Heart rate 103 /min Brea Aichholz FORMER HAND Work Phone: [facility] 12-05-2023 08:48-0500 Respiratory rate 17 /min Brea Aichholz FORMER HAND Work Phone: [facility] 12-05-2023 08:48-0500 SaO2% (BldA) [Mass fraction] 99 % Brea Aichholz FORMER HAND Work Phone: [facility] 12-05-2023 08:48-0500 Systolic blood pressure 110 mm[Hg] Brea Aichholz FORMER HAND Work Phone: [facility] 09-25-2023 21:50-0500 Diastolic blood pressure 73 mm[Hg] Demond Holly [facility] 09-25-2023 21:50-0500 Heart rate 95 /min Demond Avni [facility] 09-25-2023 21:50-0500 Mean blood pressure 90 mm[Hg] Demond Avni [facility] 09-25-2023 21:50-0500 Respiratory rate 22 /min Demond Avni [facility] 09-25-2023 21:50-0500 SaO2% (BldA) [Mass fraction] 97 % Demond Avni [facility] 09-25-2023 21:50-0500 Systolic blood pressure 123 mm[Hg] Demond Avni [facility] 09-25-2023 20:37-0500 Diastolic blood pressure 77 mm[Hg] Demond Avni [facility] 09-25-2023 20:37-0500 Heart rate 94 /min Demond Avni [facility] 09-25-2023 20:37-0500 Mean blood pressure 99 mm[Hg] Demond Avni [facility] 09-25-2023 20:37-0500 Respiratory rate 18 /min Demond Avni [facility] 09-25-2023 20:37-0500 SaO2% (BldA) [Mass fraction] 97 % Demond Avni [facility] 09-25-2023 20:37-0500 Systolic blood pressure 144 mm[Hg] Demond Avni [facility] 09-25-2023 19:50-0500 Diastolic blood pressure 83 mm[Hg] Demond Avni [facility] 09-25-2023 19:50-0500 Heart rate 100 /min Demond Avni [facility] 09-25-2023 19:50-0500 Mean blood pressure 104 mm[Hg] Demond Holly [facility] 09-25-2023 19:50-0500 Respiratory rate 22 /min Demond Holly [facility] 09-25-2023 19:50-0500 SaO2% (BldA) [Mass fraction] 98 % Demond Holly [facility] 09-25-2023 19:50-0500 Systolic blood pressure 147 mm[Hg] Demond Holly [facility] 09-25-2023 18:23-0500 Body temperature 98.24 [degF] Demond Holly [facility] 09-25-2023 18:23-0500 Heart rate 111 /min Demond Holly [facility] 09-25-2023 18:23-0500 Respiratory rate 24 /min Demond Holly [facility] 09-08-2023 20:26-0500 Body temperature 98.06 [degF] Ramses Hair [facility] 09-08-2023 20:26-0500 Diastolic blood pressure 76 mm[Hg] Ramses Hair [facility] 09-08-2023 20:26-0500 Heart rate 81 /min Ramses Hair [facility] 09-08-2023 20:26-0500 Mean blood pressure 87 mm[Hg] Ramses Hair [facility] 09-08-2023 20:26-0500 Respiratory rate 20 /min Ramses Hair [facility] 09-08-2023 20:26-0500 SaO2% (BldA) [Mass fraction] 99 % Ramses Hair [facility] 09-08-2023 20:26-0500 Systolic blood pressure 110 mm[Hg] Ramses Reginaldo [facility] 09-08-2023 19:28-0500 Diastolic blood pressure 61 mm[Hg] Ramses Reginaldo [facility] 09-08-2023 19:28-0500 Heart rate 86 /min Ramses Reginaldo [facility] 09-08-2023 19:28-0500 Mean blood pressure 82 mm[Hg] Ramses Reginaldo [facility] 09-08-2023 19:28-0500 Respiratory rate 18 /min Ramses Reginaldo [facility] 09-08-2023 19:28-0500 SaO2% (BldA) [Mass fraction] 99 % Ramses Reginaldo [facility] 09-08-2023 19:28-0500 Systolic blood pressure 123 mm[Hg] Ramses Reginaldo [facility] 09-08-2023 18:00-0500 Diastolic blood pressure 75 mm[Hg] Ramses Reginaldo [facility] 09-08-2023 18:00-0500 Heart rate 92 /min Ramses Reginaldo [facility] 09-08-2023 18:00-0500 SaO2% (BldA) [Mass fraction] 91 % Ramses Reginaldo [facility] 09-08-2023 18:00-0500 Systolic blood pressure 124 mm[Hg] Ramses Reginaldo [facility] 09-08-2023 16:33-0500 Body temperature 98.24 [degF] Ramses Reginaldo [facility] 09-08-2023 16:33-0500 Heart rate 104 /min Ramses Reginaldo [facility] 09-08-2023 16:33-0500 Respiratory rate 24 /min Ramses Reginaldo [facility] 07-19-2023 09:00-0400 Blood Pressure Location Mhd Al-Marrawi [facility] 07-19-2023 09:00-0400 Body temperature 98.06 [degF] Mhd Al-Marrawi [facility] 07-19-2023 09:00-0400 Diastolic blood pressure 72 mm[Hg] Mhd Al-Marrawi [facility] 07-19-2023 09:00-0400 Heart rate 79 /min Mhd Al-Marrawi [facility] 07-19-2023 09:00-0400 Mean blood pressure 88 mm[Hg] Mhd Al-Marrawi [facility] 07-19-2023 09:00-0400 Respiratory rate 18 /min Mhd Al-Marrawi [facility] 07-19-2023 09:00-0400 SaO2% (BldA) [Mass fraction] 93 % Mhd Al-Marrawi [facility] 07-19-2023 09:00-0400 Systolic blood pressure 120 mm[Hg] Mhd Al-Marrawi [facility] 06-28-2023 10:00-0400 Blood Pressure Location Ezekiel Christian [facility] 06-28-2023 10:00-0400 Body temperature 98.06 [degF] Ezekiel Anahi [facility] 06-28-2023 10:00-0400 Diastolic blood pressure 69 mm[Hg] Ezekiel Anahi [facility] 06-28-2023 10:00-0400 Heart rate 101 /min Ezekiel Christian [facility] 06-28-2023 10:00-0400 Mean blood pressure 90 mm[Hg] Ezekiel Christian [facility] 06-28-2023 10:00-0400 Respiratory rate 16 /min Ezekiel Christian [facility] 06-28-2023 10:00-0400 SaO2% (BldA) [Mass fraction] 92 % Ezekiel Christian [facility] 06-28-2023 10:00-0400 Systolic blood pressure 133 mm[Hg] Ezekielaashish Christian [facility] 06-17-2023 17:06-0400 Hourly Rounding Mbanefo OJUKWU [facility] 06-17-2023 17:06-0400 Promise to Return Mbanefo OJUKWU [facility] 06-17-2023 16:00-0400 Hourly Rounding Mbanefo OJUKWU [facility] 06-17-2023 16:00-0400 Promise to Return Mbanefo OJUKWU [facility] 06-17-2023 15:42-0400 Heart rate 82 /min Mbanefo OJUKWU [facility] 06-17-2023 15:42-0400 SaO2% (BldA) [Mass fraction] 95 % Mbanefo OJUKWU [facility] 06-17-2023 15:42-0400 Diastolic blood pressure 64 mm[Hg] Mbanefo OJUKWU [facility] 06-17-2023 15:42-0400 Mean blood pressure 79 mm[Hg] Mbanefo OJUKWU [facility] 06-17-2023 15:42-0400 Systolic blood pressure 109 mm[Hg] Mbanefo OJUKWU [facility] 06-17-2023 15:41-0400 Body temperature 97.88 [degF] Mbanefo OJUKWU [facility] 06-17-2023 15:05-0400 Hourly Rounding Mbanefo OJUKWU [facility] 06-17-2023 15:05-0400 Promise to Return Mbanefo OJUKWU [facility] 06-17-2023 14:00-0400 SaO2% (BldA) [Mass fraction] 96 % Mbanefo OJUKWU [facility] 06-17-2023 12:53-0400 Heart rate 87 /min Mbanefo OJUKWU [facility] 06-17-2023 12:53-0400 Respiratory rate 18 /min Mbanefo OJUKWU [facility] 06-17-2023 12:48-0400 SaO2% (BldA) [Mass fraction] 95 % Mbanefo OJUKWU [facility] 06-17-2023 12:44-0400 Heart rate 86 /min Mbanefo OJUKWU [facility] 06-17-2023 12:44-0400 Respiratory rate 18 /min Mbanefo OJUKWU [facility] 06-17-2023 12:00-0400 Diastolic blood pressure 66 mm[Hg] Mbanefo OJUKWU [facility] 06-17-2023 12:00-0400 Mean blood pressure 86 mm[Hg] Mbanefo OJUKWU [facility] 06-17-2023 12:00-0400 Systolic blood pressure 125 mm[Hg] Mbanefo OJUKWU [facility] 06-17-2023 09:19-0400 Diastolic blood pressure 71 mm[Hg] Mbanefo OJUKWU [facility] 06-17-2023 09:19-0400 Systolic blood pressure 134 mm[Hg] Mbanefo OJUKWU [facility] 06-17-2023 09:16-0400 gluc 173 mg/dL Mbanefo OJUKWU [facility] 06-17-2023 07:33-0400 Mean blood pressure 90 mm[Hg] Mbanefo OJUKWU [facility] 06-17-2023 07:33-0400 Body temperature 97.88 [degF] Mbanefo OJUKWU [facility] 06-17-2023 04:00-0400 Blood Pressure Location Mbanefo OJUKWU [facility] 06-17-2023 04:00-0400 Body temperature 98.24 [degF] Mbanefo OJUKWU [facility] 06-17-2023 04:00-0400 Mean blood pressure 91 mm[Hg] Mbanefo OJUKWU [facility] 06-17-2023 00:00-0400 Body temperature 97.88 [degF] Mbanefo OJUKWU [facility] 06-16-2023 22:48-0400 Blood Pressure Location Mbanefo OJUKWU [facility] 06-16-2023 22:48-0400 Body temperature 98.24 [degF] Mbanefo OJUKWU [facility] 06-16-2023 22:48-0400 Heart rate 80 /min Mbanefo OJUKWU [facility] 06-16-2023 21:42-0400 Mean blood pressure 76 mm[Hg] Mbanefo OJUKWU [facility] 06-16-2023 21:42-0400 Respiratory rate 18 /min Mbanefo OJUKWU [facility] 06-16-2023 20:45-0400 Mean blood pressure 95 mm[Hg] Mbanefo OJUKWU [facility] 06-16-2023 20:45-0400 Respiratory rate 18 /min Mbanefo OJUKWU [facility] 06-16-2023 19:39-0400 Respiratory rate 18 /min Mbanefo OJUKWU [facility] 06-16-2023 15:51-0400 Heart rate 107 /min Mbanefo OJUKWU [facility] 06-16-2023 15:51-0400 Respiratory rate 22 /min Mbanefo OJUKWU [facility] Encounters Encounter Date Encounter Type Care Provider Facility Start: 10-04-2024 End: 10-04-2024 Refill Brea Jj NP Work Phone: [facility] Comment on above: Gastroesophageal ref lux disease without esophagitis Start: 09-11-2024 End: 09-11-2024 Refill Gunjan DRAKE [facility] Comment on above: Mixed hyperlipidemia (CMS/HCC) Start: 09-06-2024 End: 09-06-2024 Refill Brea Aichholz FORMER HAND Work Phone: [facility] Comment on above: Osteopenia after men opause (Primary Dx) Start: 08-02-2024 End: 08-03-2024 Refill Brea Aichholz FORMER HAND Work Phone: [facility] Comment on above: Type 2 diabetes demetrius itus without complication, without long- term current use of insulin (CMS/HCC) (Primary Dx); Atherosclerosis of aorta (CMS/HCC) Start: 07-24-2024 End: 07-24-2024 Bamboo flowsheet Brea Aichholz FORMER HAND Work Phone: [facility] Start: 07-24-2024 End: 07-24-2024 Bamboo flowsheet Brea Aichholz FORMER HAND Work Phone: [facility] Start: 07-24-2024 End: 07-24-2024 Office outpatient visit 25 minutes Brea Aichholz FORMER HAND Work Phone: [facility] Comment on above: Anxiety and depressi on (CMS/HCC) (Primary Dx); Mixed hyperlipidemia (CMS/HCC); Restless leg syndrome; Primary hypertension (CMS/HCC); Type 2 diabetes mellitus without complication, without long-term current use of insulin (CMS/HCC); Other insomnia Start: 07-24-2024 End: 07-24-2024 ambulatory BREA AICHHOLZ Not Available Start: 07-23-2024 End: 07-23-2024 ambulatory Mariama Barcenas Facility[place] Start: 07-23-2024 End: 07-23-2024 Patient encounter procedure Mariama Yumaye [facility] Start: 07-16-2024 End: 07-16-2024 ambulatory AGPCNP-BC Mariama Yumaribeljose Facility:[facility] Start: 07-16-2024 End: 07-16-2024 Patient encounter procedure Mariama Yumaye [facility] Start: 07-05-2024 End: 07-06-2024 Refill Brea Aichholz FORMER HAND Work Phone: [facility] Comment on above: Gastroesophageal ref lux disease without esophagitis Start: 05-23-2024 End: 05-23-2024 ambulatory BREA AICHHOLZ Not Available Start: 02-21-2024 End: 02-21-2024 ambulatory BREA AICHHOLZ Not Available Start: 01-16-2024 End: 01-16-2024 ambulatory Mariama Barcenas Facility:[facility] Start: 01-16-2024 End: 01-16-2024 Patient encounter procedure Mariama Barcenas [facility] Start: 01-10-2024 End: 01-10-2024 ambulatory BREA AICHHOLZ Not Available Start: 01-09-2024 End: 01-09-2024 ambulatory MD Roby Bob Facility:[facility] Start: 01-09-2024 End: 01-09-2024 Patient encounter procedure ramy WoodwardNeelima [facility] Start: 12-08-2023 Refill Brea Aichholz FORMER HAND Work Phone: [facility] Comment on above: Anxiety and depressi on (CMS/[facility]) (Primary Dx); Type 2 diabetes mellitus without complication, without long-term current use of insulin ([facility]); Arthritis Start: 12-05-2023 End: 12-05-2023 Office outpatient visit 25 minutes Brea Aichholz FORMER HAND Work Phone: [facility] Comment on above: Other insomnia (Prim fay Dx); ROLANDO (obstructive sleep apnea); COPD mixed type (CMS/HCC); Tobacco dependence syndrome; BMI 37.0-37.9, adult; Anxiety and depression (CMS/HCC); Restless leg syndrome Start: 12-05-2023 End: 12-05-2023 ambulatory BREA AICHHOLZ Not Available Start: 10-19-2023 End: 10-19-2023 ambulatory BREA AICHHOLZ Not Available Start: 09-25-2023 End: 09-25-2023 Emergency department patient visit Demond Holly [facility] Start: 09-08-2023 End: 09-08-2023 Emergency department patient visit Ramses Hair [facility] Start: 07-20-2023 End: 07-20[facility] Start: 07-19-2023 End: 07-19-2023 Patient encounter procedure Mhd Ryan Bob [facility] Start: 06-28-2023 End: 06-28-2023 Patient encounter procedure Ezekiel [facility] Start: 06-16-2023 End: 06-17-2023 Observation Nimcoclovis JANETTE [facility] Start: 02-23-2023 End: 02-23-[address] SHELDON CARVAJAL . Facility:[facility] Start: 02-01-2023 End: 02-02-2023 ambulatory CORRINA GAINES . Facility:[facility] Start: 01-12-2023 End: 01-13-2023 ambulatory CLIP BAKER BREA AICHHOLZ Facility:[facility] Start: 01-03-2023 End: 01-04-2023 ambulatory CLIP BAKER BREA AICHHOLZ Facility:[facility] Start: 12-24-2022 End: 12-24-2022 ambulatory TOSHIA SAM [facility] Start: 11-04-2022 End: 11-05-2022 ambulatory CLIP BAKER BREA AICHHOLZ Facility:[facility] Start: 07-28-2022 End: 07-29-2022 ambulatory CLIP BAKER BREA AICHHOLZ Facility:[facility] Start: 04-30-2022 End: 05-01-2022 ambulatory CLIP BAKER BREA АННА Facility:[facility] Start: 03-26-2022 End: 03-26-2022 ambulatory CLIP BAKER BREA SELMADania Facility:[facility] Start: 06-15-2021 End: 06-16-2021 ambulatory TOSHIA SAM Facility:[facility] Procedures Date Procedure Procedure Detail Performing Clinician Start: 04-16-2024 Mammography Brea Auregi mcmahon FORMER HAND Work Phone: Start: 04-14-2023 Mammography Brea Mitchell salome FORMER HAND Work Phone: Start: 03-31-2020 Colonoscopy Brea Mitchell salome FORMER HAND Work Phone: Start: 05-05-1987 section Elijah Christian Start: 06-20-1984 section Elijah Christian Cyst (disorder) Ezekiel solorzano Comment on above: Removal of cyst of r ight foot. Knee region structur e (body structure) Ezekiel Christian Comment on above: surgery Plan of Treatment Date Care Activity Detail Author Start: 03-31-2030 Screening for malign ant neoplasm of colon [facility] Start: 06-23-2028 Screening for malign ant neoplasm of cervix [facility] Start: 04-16-2025 Screening for malign ant neoplasm of breast Mammogram [facility] Start: 03-15-2025 Urine screening for protein Diabetes: Urine Protein Screening [facility] Start: 01-29-2025 Glaucoma screening Diabetes: R etinopathy Screening [facility] Start: 10-15-2024 End: 10-15-2024 Patient encounter procedure 10/15/2024 9:00 AM EST Office Visit [facility] [address] [place] [address] Brea Jj NP [address] [place] [phone] [facility] Start: 09-15-2024 Hemoglobin A1c measurement Diabetes: Hemoglobin A1C [facility] Start: 08-30-2024 Influenza vaccination Influenza Vacc ine (#1) [facility] Comment on above: Postponed from 07/01 (Patient Does Not Have Time) Start: 07-24-2024 End: 07-24-2024 Patient encounter procedure [facility] Comment on above: Arrived Start: 07-01-2024 Influenza vaccination Influenza Vacc ine (#1) [facility] Start: 04-29-2024 Influenza vaccination Influenza Vacc ine (#1) [facility] Comment on above: Postponed from 07/01 (Patient Refused) Start: 04-14-2024 Screening for malign ant neoplasm of breast Mammogram [facility] Start: 04-14-2024 Urine screening for protein Diabetes: Urine Protein Screening [facility] Start: 01-25-2024 Hemoglobin A1c measurement Diabetes: Hemoglobin A1C [facility] Start: 01-10-2024 End: 01-10-2024 Patient encounter procedure 01/10/2024 9:00 AM EDT Office Visit [facility] [address] [place] [address] Brea Jj, TOBIAS [address] [place] [address] [facility] Start: 1985 Screening for malign ant neoplasm of cervix Pap Smear [facility] Start: 1964 Screening for malign ant neoplasm of colon [facility] Payers Date Payer Category Payer Medicaid [employer] [place] [employer] [id number] 2020-Present [address] [place] [id number] 2020 Medicaid (Managed Care) [employer] [id number] 1964 Unknown [id number] 2.16.840.1.068352.3.579.2. 647 1964 Unknown [id number] 2.16.840.1.391975.3.579.2. 593 1964 Unknown [id number] 2.16.840.1.863861.3.579.2. 593 1964 Unknown [id number] 2.16.840.1.252403.3.579.2. 593 1964 Unknown [id number] 2.16.840.1.225138.3.579.2. 593 1964 Unknown [id number] 2.16.840.1.182628.3.579.2. 593 1964 Unknown [id number] 2.16.840.1.034339.3.579.2. 593 1964 Unknown [id number] 2.16.840.1.055412.3.579.2. 593 1964 Unknown [id number] 2.16.840.1.812297.3.579.2. 593 1964 Unknown [id number] 2.16.840.1.348285.3.579.2. 727 1964 Unknown [id number] 2.16.840.1.997653.3.579.2. 727 1964 Unknown [id number] 2.16.840.1.874301.3.579.2. 727 1964 Unknown [id number] 2.16.840.1.323390.3.579.2. 727 1964 Unknown [id number] 2.16.840.1.181498.3.579.2. 727 1964 Unknown [id number] 2.16.840.1.010416.3.579.2. 727 1964 Unknown [id number] 2.16.840.1.234700.3.579.2. 727 1964 Unknown [id number] 2.16.840.1.376988.3.579.2. 1259 1964 Unknown [id number] 2.16.840.1.557756.3.579.2. 9 1964 Unknown [id number] 2.16.840.1.568261.3.579.2. 1259 1964 Unknown [id number] 2.16.840.1.996440.3.579.2. 9 1964 Unknown [id number] 2.16.840.1.996293.3.579.2. 1259 1964 Unknown [id number] 2.16.840.1.160256.3.579.2. 9 1959 Unknown [id number] Social History Date Type Detail Facility Tobacco Former smoker [facility] Comment on above: 1/2 pack a day Tobacco smoking status No Smokin g Status Entered [facility] Start: 04-21-2023 End: 02-21-2024 Sex Assigned At Female [facility] Start: 06-28-2023 End: 10-19-2023 Tobacco smoking status Ex-smoker (finding) [facility] Comment on above: Quit 06/19/23 1/2 pack a day History of tobacco use Current smoker [facility] History of tobacco use Cigarette Smoker [facility] Start: 10-19-2023 End: 02-21-2024 Cigarettes smoked current (pack per day) - Reported 1 [facility] Start: 10-19-2023 Tobacco use and exposure Smokeless tobacco non-user [facility] Start: 12-05-2023 End: 07-24-2024 Alcohol intake Lifetime non-drinker (finding) [facility] How often to you hav e a drink containing alcohol? Never [facility] How many standard drinks containing alcohol do you have on a typical day? Patient does not drink [facility] Start: 10-19-2023 Tobacco Comment 11-20 cigarettes/day [facility] Start: 10-19-2023 Alcohol Comment caffeine 2-3 c ups per day [facility] Start: 1965 Sex Assigned At Female [facility] Start: 04-20-2023 Gender identity Identifies as female gender (finding) [facility] Start: 04-20-2023 Sexual orientation Heterosexual (fin ding) [facility] Start: 07-23-2024 Tobacco smoking status Heavy t obacco smoker (finding) [facility] Medical Equipment Procedure Code Equipment Code Equipment Origin al Text Equipment Identifier Dates USE ONCE DAILY A S DIRECTED [id number] Start: 03-17-2023 Functional Status Date Assessment Result Facility 09-25-2023 Functional Status N/A [facility] 09-08-2023 Functional Status N/A [facility] 06-16-2023 Functional Status N/A [facility] 06-16-2023 Functional Status [facility] Clinical Notes 12-24-2022 to 07-24-2024 Brea Jj NP - 07/24/2024 9:57 AM Jesse Jj NP - 07/24/2024 9:57 AM Jesse Jj NP - 07/24/2024 9:20 AM Jesse Jj NP - 12/05/2023 9:41 AM EST Note Date & Type Note Facility 07-24-2024 History of Present illness Narrative Associated Problem(s): Anxiety and depression ([facility]/HCC) Continue current meds as well as klonopin OARRS reviewed Associated Problem(s): Restless leg syndrome No med dose changes Images from the original note were not included. Aliya Moore is a 58 y.o. female presents with chief complaint of No chief complaint on file. HPI: Here for a recheck: Depression/anxiety are stable. Some good days/bad days, with continued declining health (cardiac). Otherwise she is doing fairly well and feels stable with her chronic conditions as well. She is smoking and reports she is stressing and that is why smoking. No other c/o at this time SUBJECTIVE: MEDICATIONS: Current Outpatient Medications Medication Instructions Aspirin Low Dose 81 mg, Daily atorvastatin (LIPITOR) 40 mg, Oral, Nightly Bevespi Aerosphere 9-4.8 MCG/ACT aerosol 2 puffs, Inhalation, 2 times daily busPIRone (BUSPAR) 15 mg, Oral, 2 times daily Calcium Carb-Cholecalciferol 600-5 MG-MCG tablet 1 tablet, Oral, 2 times daily celecoxib (CELEBREX) 200 mg, Oral, Daily clonazePAM (KLONOPIN) 0.5 mg, Oral, Nightly DULoxetine (CYMBALTA) 60 mg, Oral, Daily Eliquis 5 MG tablet TAKE TWO TABLETS BY MOUTH TWICE A DAY FOR 6 DAYS, THE TAKE ONE TABLET TWICE A DAY FOR 30 DAYS FeroSul 325 (65 Fe) MG tablet 1 tablet, Oral, Daily Flovent HFA 110 MCG/ACT inhaler 2 puffs, Inhalation, 2 times daily fluticasone (Flonase) 50 MCG/ACT nasal spray INSTILL 2 SPRAYS IN EACH NOSTRIL ONCE DAILY furosemide (LASIX) 20 mg, Oral, Daily gabapentin (NEURONTIN) 300 mg, Oral, Daily hyoscyamine (LEVSIN) 0.125 mg, Oral, Every 6 hours PRN ipratropium-albuterol (Duo-Neb) 0.5-2.5 mg/3 mL nebulizer solution INHALE 3ML FOUR TIMES A DAY lamoTRIgine (LAMICTAL) 50 mg, Oral, Nightly lisinopril-hydroCHLOROthiazide 20-25 MG tablet 1 tablet, Oral, Daily Multiple Vitamin (Multivitamin) tablet 1 tablet, Oral, Daily ondansetron ODT (ZOFRAN-ODT) 4 mg, Oral, Every 8 hours PRN OneTouch Ultra test strip USE ONCE DAILY DIRECTED pantoprazole (PROTONIX) 40 mg, Oral, Daily before breakfast, Do not crush, chew, or split. pioglitazone (ACTOS) 15 mg, Oral, Daily potassium [...] for difficulty urinating, dysuria and frequency. Musculoskeletal: Negative for arthralgias, back pain, joint swelling and myalgias. Skin: Negative for rash and wound. Neurological: Negative for dizziness, tremors, seizures, syncope and headaches. Psychiatric/Behavioral: Negative for behavioral problems, self-injury and suicidal ideas. The patient is nervous/anxious. Depression Hematological: Does not bruise/bleed easily. Endocrine: Negative for polydipsia, polyphagia and polyuria. Allergic/Immunologic: Negative for environmental allergies and food allergies. PAST MEDICAL HISTORY Past Medical History: Diagnosis Date Anxiety and depression ([facility]) 10/12/2023 Arthritis Class 2 severe obesity due to excess calories with serious comorbidity in adult ([facility]) 10/19/2023 Mixed hyperlipidemia ([facility]) 10/12/2023 ROLANDO (obstructive sleep apnea) Other insomnia 10/19/2023 Primary hypertension ([facility]) 10/12/2023 Restless leg syndrome 10/12/2023 Type 2 diabetes mellitus without complication, without long-term current use of insulin ([facility]) 10/19/2023 Past Surgical History: Procedure Laterality Date SECTION, LOW TRANSVERSE x2 COLONOSCOPY FOOT SURGERY 01/08/2020 e/o RT foot ganglion cyst, repair tendon HEART CATH 2014 WNL KNEE SURGERY Left arthroscopy TUBAL LIGATION Bilateral BTL family history includes COPD in her mother; Heart disease in her father. OBJECTIVE: Visit Vitals BP 130/82 (BP Location: Left arm, Patient Position: Sitting, BP Cuff Size: Adult long) Pulse 83 Temp 98.3 F (Temporal) Resp 19 Ht 5' 9 Wt 260 lb 6.4 oz SpO2 90% BMI 38.45 kg/m OB Status Postmenopausal Smoking Status Former BSA 2.4 m Physical Exam Vitals and nursing note reviewed. Constitutional: General: She is not in acute distress. Appearance: Normal appearance. HENT: Head: Normocephalic and atraumatic. Right Ear: External ear normal. Left Ear: External ear normal. Nose: Nose normal. Mouth/Throat: Mouth: Mucous membranes are moist. Eyes: Extraocular Movements: Extraocular movements intact. Conjunctiva/sclera: Conjunctivae normal. Neck: Vascular: No carotid bruit. Cardiovascular: Rate and Rhythm: Normal rate and regular rhythm. Pulses: Normal pulses. Heart sounds: Normal heart sounds. Pulmonary: Effort: Pulmonary effort is normal. Breath sounds: Normal breath sounds. No wheezing. Abdominal: General: Bowel sounds are normal. There is no distension. Palpations: Abdomen is soft. There is no mass. Tenderness: There is no abdominal tenderness. Musculoskeletal: General: Normal range of motion. Cervical back: Normal range of motion and neck supple. Right lower leg: No edema. Left lower leg: No edema. Lymphadenopathy: Cervical: No cervical adenopathy. Skin: General: Skin is warm and dry. Capillary Refill: Capillary refill takes 2 to 3 seconds. Findings: No rash. Neurological: General: No focal deficit present. Mental Status: She is alert and oriented to person, place, and time. Psychiatric: Mood and Affect: Mood normal. Behavior: Behavior normal. Thought Content: Thought content normal. Judgment: Judgment normal. ASSESSMENT AND PLAN: No follow-ups on file. Problem List Items Addressed This Visit Restless leg syndrome No med dose changes Relevant Medications gabapentin (Neurontin) 300 MG capsule pramipexole (Mirapex) 0.5 MG tablet clonazePAM (KlonoPIN) 0.5 MG tablet Anxiety and depression (CMS/HCC) Continue current meds as well as klonopin OARRS reviewed Relevant Medications busPIRone (Buspar) 15 MG tablet DULoxetine (Cymbalta) [address] capsule lamoTRIgine (LaMICtal) 25 MG tablet clonazePAM (KlonoPIN) 0.5 MG tablet Mixed hyperlipidemia (CMS/HCC) Relevant Medications atorvastatin (Lipitor) 40 MG tablet Other insomnia Relevant Medications clonazePAM (KlonoPIN) 0.5 MG tablet Type 2 diabetes mellitus without complication, without long-term current use of insulin (CMS/HCC) Relevant Medications pioglitazone (Actos) 15 MG tablet Other Visit Diagnoses Primary hypertension (CMS/HCC) Relevant Medications lisinopril-hydroCHLOROthiazide 20-25 MG tablet documented in this encounter [facility] 07-23-2024 Note Oncology Progress No te Chief Complaint Acute PE; here to go over results. Diagnoses 1. History of pulmonary embolism (Z86.711: Personal history of pulmonary embolism) Ordered: ONC Office Visit 30 Min 2. Iron deficiency anemia (D50.9: Iron deficiency anemia, unspecified) Oncological History/ROS/PE/Assessment and Plan Aliya was referred to our hematology office at [facility] for Thrombophilia work up and decision about duration of anticoagulation for the acute PE diagnosed on . She is a 57-year-old female cigarette smoker with history of hypertension, pmo-bifxsix-muszlahdd diabetes mellitus, obesity, chronic hypoxic respiratory failure on 3 L home oxygen, and depression who presented on 06/16/23 to [facility] with complaints of [...] the time denies any dizziness or lightheadedness craves marcelino sees pulmonology next month and is due for her annual low dose CT scan has had some GI issues in the past with pain, cramping a lot. has had colonoscopy at [facility] 07/23/24 enregy has been stable, pretty good overall for her denies any shortness of breath or chest pain. She is down to 10 cigarettes/day (quit for a while, then started again but has cut back) no longer has to wear her oxygen during the day, just at night time denies n/v/d/c. Can notice black stool from the iron, but not sticky. No bright red blood continues to crave pickles, but has improved overall no new concerns Physical Examination General: ano acute distress HENMT: Normocephalic, atraumatic. Cardiovascular: regular rate and rhythm Respiratory: Lungs CTA, respirations non labored. Abdomen: Soft nontender nondistended Neurological: oriented x 4, LOC appropriate for age, CN II-XII intact Skin: No rash. Psychiatric: Normal mood and [...] and has no questions related to this. Jul 2024 no new concerns. 2. Bilateral adrenal nodules: likely benign adenomas: 1.2 cm on the right and 1 cm in the left adrenal glands. Will need repeat CT adrenals in 12/2023. December 2023 has not had repeat of this to date, discussed with primary team Jul [address] scan at [facility] by her pcp, told everything looks good, no concerns. Plans these yearly for surveillance 3. iron deficiency anemia December 2023 iron studies low, will initiate oral iron supplementation. Will repeat iron studies in about 6 months, (more content not included)... [facility] 01-18-2024 Hospital Discharge instructions Follow Up Care 01/18/2024 12:42:29 With:Swapna ANGUIANO, Mariama Chen, ONC Address: [facility] [address] [place] [phone] When: Unknown Comments:cbc, cmp, iron studies in 6mo and 1yrfollow-up in 1yrcontinue ferrous sulfate 325mg daily [facility] 01-16-2024 Evaluation + Plan note Diagnostic Tests PendingMethylmalonic Acid 01/16/24 [facility] 12-05-2023 History of Present illness Narrative Associated [...] Medical History: Diagnosis Date Anxiety and depression ([facility]) 10/12/2023 Arthritis Class 2 severe obesity due to excess calories with serious comorbidity in adult ([facility]) 10/19/2023 COPD (chronic obstructive pulmonary disease) ([facility]) Fibrocystic breast disease Mixed hyperlipidemia ([facility]) 10/12/2023 ROLANDO (obstructive sleep apnea) Other insomnia 10/19/2023 Primary hypertension ([facility]) 10/12/2023 Restless leg syndrome 10/12/2023 Type 2 diabetes mellitus without complication, without long-term current use of insulin ([facility]) 10/19/2023 Past Surgical History: Procedure Laterality Date SECTION, LOW TRANSVERSE x2 COLONOSCOPY FOOT SURGERY 01/08/2020 e/o RT foot ganglion cyst, repair tendon HEART CATH 2014 WNL KNEE SURGERY Left arthroscopy TUBAL LIGATION [...] BMI 37.0-37.9, adult documented in this encounter [facility] 09-25-2023 Hospital Discharge instructions Patient Education 09/25/2023 [...] Follow these instructions at home: Medicines Take xocu-gqb-ritcrun and prescription medicines only as told by [...] important. Where to find more information [employer] [place] of [employer] and [employer]estive and Kidney Diseases: [...] provider. Document Revised: 09/08/2020 Document Reviewed: 09/08/2020 Really Simple Patient Education 2022 NearbyNow. Follow Up Care 09/25/2023 18:11:16 With:[facility] [address] [facility] [place] [phone] Business (1) When:09/28/2023 21:47:26 With:BREA JJ Address: [address] [place] [address] [phone] Business (1) When:Within 3 Day(s) [facility] 09-25-2023 Evaluation + Plan note Extrac aura [...] Metabolic Panel 12/27/23 * D-Dimer 12/27/23 [facility]11-09-2023 Hospital Discharge instructions Patient Education 09/08/2023 20:29:12 [...] Follow these instructions at home: Medicines Take kfzn-iie-spewlnb and prescription medicines only as told by [...] provider. Document Revised: 12/31/2021 Document Reviewed: 12/31/2021 Really Simple Patient Education 2022 NearbyNow. Follow Up Care 09/08/2023 16:32:40 With:BREA JJ Address: [address] [place] [address] [phone] Business (1) When:Within 3 Day(s) [facility]11-09-2023 Evaluation + Plan noteExtracted from: Title:ED Note [...] Metabolic Panel 12/27/23 * D-Dimer 12/27/23 [facility] Chief Complaint: Patient here for 6 mo follow up hypertension and coronary-myocardial bridge. Says she was admitted to [facility] in [place] for chest pain. Says she was diagnosed with PE. Following with organ assembler now and was started on Eliquis. She [...] history of COPD (chronic obstructive pulmonary disease) ([facility]), Diabetes mellitus ([facility]), Hyperlipidemia, Hypertension, [...] edema History of pu (more content not included)...[facility] 07-19-2023 Hospital Discharge instructions Follow Up Care 07/19/2023 10:53:55 With:Swapna ANGUIANO, Mariama Chen, ONC Address: [facility] [address] [phone] When: Unknown Comments:iron studies, b12, folate, mma todayfollow-up in 6mo with FORMER HAND [facility]08-29-2023 Hospital Discharge instructions Follow Up Care 06/28/2023 11:35:56 With:Roby Bob Address: [address] [phone] Business (1) When: Unknown Comments:Continue ELiquis for 6 months total.D dimer, CBCD and CMP end of December 2023.RTC end of December,sooner if new SOB or CP or Leg pain or swelling or bleeding. [facility]08-18-2023 Hospital Discharge instructions Patient Education 06/17/2023 14:17:33 [...] Follow these instructions at home: Medicines Take heel-mxp-uynfutq and prescription medicines only as told by [...] is important. Where to find more information [place] [employer]: www.lung.org Centers for Disease Control [...] provider. Document Revised: 09/18/2021 Document Reviewed: 09/18/2021 Elsevier Patient Education 2022 NearbyNow. Follow Up Care 06/16/2023 15:48:06 With:BREA JJ Address: [address] [place] [address] [phone] Business (1) When:1 week Comments:A voice message is left with this office with your information so they can call you for a follow upappiontment. Please call them if you do not hear from them in a few days. Thank you. With:Ezekiel Christian Address: [facility] [address] [place] [address]- When:06/28/2023 11:00:00 [facility]08-18-2023 Evaluation + Plan noteExtracted from: Title:Discharge Note Author:AJNETTE BOOTHE, Mbanefo Ramy ate:06/17/23 Discharge To, Anticipated [...] puff(s), Inhalation, BID fluticasone Nasal 0.05 mg/inh [place], 2 spray(s), Nasal, Daily furosemide 20 mg Tab, 20 mg= 1 tab(s), Oral, Daily gabapentin 300 mg Cap, 300 mg= 1 cap(s), Oral, BID hydrochlorothiazide-lisinopril 25 mg-20 mg Tab, 1 tab(s), Oral, Daily lamotrigine 25 mg Tab, 25 mg= 1 tab(s), Oral, BID pioglitazone 15 mg Tab, 15 mg= 1 tab(s), Oral, Daily Potassium Chloride (Xhy-Mjxj-Tcq 10) 10 mEq oral tablet, extended release pramipexole 0.5 mg oral tablet, 0.5 mg= 1 tab(s), Oral, TID theophylline 300 mg ER Tab, 300 mg= 1 tab(s), Oral, q12hr traZODONE 50 mg Tab, 50 mg= 1 tab(s), Oral, Once a day (at bedtime) Ventolin HFA 90 mcg/inh Aerosol-Adpt, 1 puff(s), Inhalation, QID, PRN With When Contact Information Ezekiel Christian 06/28/2023 11:00 AM EDT [facility] [address] [place] [address]- Additional Instructions: BREA JJ Within 1 week [address] [place] [address] [phone] Business (1) Additional Instructions: A voice message is left with this office with your information so they can call you for a follow up appiontment. Please call them if you do not hear from them in a few days. Thank you. Pulmonary Embolism Extracted from: Title:Admission H & P Author:JANETTE BOOTHE, Mbanefo Date:06/16/23 57-year-old female cigarette smoker with history of hypertension, hiw-zwbsmes-fibcsdxvu diabetes mellitus, obesity, chronic hypoxic respiratory failure [...] Ordered: Initial Hospital Care/Day High 75 Minutes 78109 2. Acute pulmonary embolism (I26.99: Other pulmonary [...] Ordered: Initial Hospital Care/Day High 75 Minutes [id number] 3. Sinus tachycardia (R00.0: Tachycardia, unspecified) Secondary to above acute pulmonary embolism. Monitor on telemetry. Ordered: Initial Hospital Care/Day High 75 Minutes 72122 4. COPD without exacerbation (J44.9: Chronic obstructive pulmonary disease, unspecified) Supportive care. Continue on nebulizer treatments. Ordered: Initial Hospital Care/Day High 75 Minutes 61955 5. Hypertension (I10: Essential (primary) hypertension) We will verify home medications and resume accordingly. Ordered: Initial Hospital Care/Day High 75 Minutes 32369 6. Diabetes mellitus (E11.9: Type 2 diabetes [...] (DVT) prophylaxis (Z79.899: Other long term care pharmacist (current) drug therapy) Eliquis. The patient will [...] made to ensure accuracy. However inadvertent computerized driver education instructor errors may be present. Alex Barrientos. Hospitalist. [...] deep vein thrombosis (DVT) prophylaxis (Z79.899: Other assisted (current) drug therapy) 4. COPD without exacerbation [...] Scheduled Provider: Location:.ONCOLOGY Appointment Type:ONC Office Visit [facility] ([place]) [facility]08-18-2023 Hospital Discharge instructions Follow Up Care 06/17/2023 09:42:41 With:Roby Bob Address: [facility] [address] [place] [phone] Business (1) When: Unknown Comments:THrombophilia labs now with D dimer.D dimer in 3 weeks if D dimer from now is still high.Continue Eliquis 5 mg twice daily for minimum of 6 months.RTC in 3 weeks for results. [facility]02-24-2023 NoteStable, [facility] NoteCurrently well controlled with lasix [facility]02-24-2023 NoteNo concerning symptoms, overall she is doing well.[facility]02-24-2023 Note Hypertension is well controlled 102/62 Continue lisinopril/HCTZ, lasix [facility]al function [facility]Un[facility]-2023 NotePatient here for 6 mo follow up hypertension and myocardial bridge of coronary artery. Had labs in Jul 2022. Denies chest pain and lightheadedness. Review of Systems Cardiovascular: Positive for dyspnea on exertion. Respiratory: Positive for cough and shortness of breath. Musculoskeletal: Positive for arthritis, back pain and joint pain. Neurological: Positive for headaches. All other systems reviewed and are negative.[facility] 12-24-2022 NoteUTP CARDIOLOGY PROGRESS NOTE HPI: [...] most likely r/t pulmo (more content not included)...[facility] 12-24-2022 NoteProvider had extended 10 min discussion again with patient about smoking cessation, at this time she doesn't want to take any further medication or that she is ready to quit smoking at this time.[facility] Evaluation + Plan note Future Appointments Appointment Date:07/19/2023 10:00:00 AM Scheduled Provider: Location:.ONCOLOGY Appointment Type:ONC [facility] 30 [facility]ments Appointment Date:01/16/2024 09:00:00 AM Scheduled Provider: [facility] App[facility] Type:ONC Office Visit 30 (FT) Future Scheduled Tests Laboratory* CBC w/ Auto Diff 12/27/23 * Comprehensive Metabolic Panel 12/27/23 * D-Dimer 12/27/23 [facility] Future Appointments Appointment Date:01/16/2024 11:30:00 AM Scheduled Provider:Mariama Moore Location:FT.ONCOLOGY Appointment Type:ONC Office Visit 30 (FT[facility] Future Appointments Appointment Date:07/22/2025 10:00:00 AM Scheduled Provider:Mariama Moore Location:.ONCOLOGY Appointment Type:ONC Office Visit 20 (FT) Future Scheduled Tests Laboratory* CBC w/ Auto Diff 07/23/24 * CBC w/ Auto Diff 01/20/25 * Comprehensive Metabolic Panel 07/23/24 * Comprehensive Metabolic Panel 01/20/25 * Ferritin 07/23/24 * Ferritin 01/20/25 * Iron Level 07/23/24 * Iron Level 01/20/25 * Iron Percent Saturation 07/23/24 * Iron Percent Saturation 01/20/25 * Transferrin 07/23/24 * Transferrin 01/20/25 [facility] Evaluation + Plan note Future Appointments Appointment Date:07/23/2024 10:40:00 AM Scheduled Provider:Mariama Moore Location:FT.ONCOLOGY Appointment Type:ONC Office Visit 30 (FT) [facility] Evaluation note* Diagnosis Other insomnia- Primary ROLANDO (obstructive sleep apnea) Obstructive sleep apnea (adult) (pediatric) COPD mixed type (CMS/HCC) Tobacco dependence syndrome Tobacco use disorder BMI 37.0-37.9, adult Anxiety and depression ([facility]) Restless leg syndrome Restless legs syndrome (RLS) documented in this encounter [facility]* Diagnosis Anxiety and depression (CMS/HCC)- Primary Type 2 diabetes mellitus without complication, without long-term current use of insulin ([facility]) Arthritis Unspecified arthropathy, site unspecified documented in this encounter [facility]* Diagnosis Type 2 diabetes mellitus without complication, without long-term current use of insulin (CMS/HCC)- Primary Atherosclerosis of aorta (CMS/[facility]) Atherosclerosis of aorta documented in this encounter [facility]* Diagnosis Anxiety and depression (CMS/HCC)- Primary Other insomnia Class 2 severe obesity due to excess calories with serious comorbidity and body mass index (BMI) of 37.0 to 37.9 in adult (CMS/HCC) Type 2 diabetes mellitus without complication, without long-term current use of insulin (CMS/HCC) ROLANDO (obstructive sleep apnea) Obstructive sleep apnea (adult) (pediatric) Other insomnia- Primary ROLANDO (obstructive sleep apnea) Obstructive sleep apnea (adult) (pediatric) COPD mixed type (CMS/HCC) Tobacco dependence syndrome Tobacco use disorder BMI 37.0-37.9, adult Anxiety and depression (CMS/HCC) Restless leg syndrome Restless legs syndrome (RLS) Other insomnia- Primary Anxiety and depression (CMS/HCC) Restless leg syndrome Restless legs syndrome (RLS) Acute non-recurrent maxillary sinusitis Right upper quadrant abdominal pain Other fatigue- Primary Morbid (severe) obesity due to excess calories (CMS/HCC) Essential (primary) hypertension (CMS/HCC) Unspecified essential hypertension Body mass index (BMI) 37.0-37.9, adult Chronic respiratory failure with hypoxia (CMS/HCC) Type 2 diabetes mellitus with other specified complication (CMS/HCC) Atherosclerosis of aorta (CMS/HCC) Atherosclerosis of aorta Mixed hyperlipidemia (CMS/HCC) Mixed hyperlipidemia Anxiety and depression (CMS/HCC) Restless leg syndrome Restless legs syndrome (RLS) Primary hypertension (CMS/HCC) Unspecified essential hypertension Type 2 diabetes mellitus without complication, without long-term current use of insulin (CMS/HCC) Right upper quadrant abdominal pain COPD mixed type (CMS/HCC) Gastroesophageal reflux disease without esophagitis Esophageal reflux Anxiety and depression (CMS/HCC)- Primary Mixed hyperlipidemia (CMS/HCC) Mixed hyperlipidemia Restless leg syndrome Restless legs syndrome (RLS) Primary hypertension (CMS/HCC) Unspecified essential hypertension Type 2 diabetes mellitus without complication, without long-term current use of insulin (CMS/HCC) Other insomnia Osteopenia after menopause- Primary documented in this encounter [facility] note* Diagnosis Anxiety and depression (CMS/HCC)- Primary Other insomnia Class 2 severe obesity due to excess calories with serious comorbidity and body mass index (BMI) of 37.0 to 37.9 in adult (CMS/HCC) Type 2 diabetes mellitus without complication, without long-term current use of insulin (CMS/HCC) ROLANDO (obstructive sleep apnea) Obstructive sleep apnea (adult) (pediatric) Other insomnia- Primary ROLANDO (obstructive sleep apnea) Obstructive sleep apnea (adult) (pediatric) COPD mixed type (CMS/HCC) Tobacco dependence syndrome Tobacco use disorder BMI 37.0-37.9, adult Anxiety and depression (CMS/HCC) Restless leg syndrome Restless legs syndrome (RLS) Other insomnia- Primary Anxiety and depression (CMS/HCC) Restless leg syndrome Restless legs syndrome (RLS) Acute non-recurrent maxillary sinusitis Right upper quadrant abdominal pain Other fatigue- Primary Morbid (severe) obesity due to excess calories (CMS/HCC) Essential (primary) hypertension (CMS/HCC) Unspecified essential hypertension Body mass index (BMI) 37.0-37.9, adult Chronic respiratory failure with hypoxia (CMS/HCC) Type 2 diabetes mellitus with other specified complication (CMS/HCC) Atherosclerosis of aorta (CMS/HCC) Atherosclerosis of aorta Mixed hyperlipidemia (CMS/HCC) Mixed hyperlipidemia Anxiety and depression (CMS/HCC) Restless leg syndrome Restless legs syndrome (RLS) Primary hypertension (CMS/HCC) Unspecified essential hypertension Type 2 diabetes mellitus without complication, without long-term current use of insulin (CMS/HCC) Right upper quadrant abdominal pain COPD mixed type (CMS/HCC) Gastroesophageal reflux disease without esophagitis Esophageal reflux Anxiety and depression (CMS/HCC)- Primary Mixed hyperlipidemia (CMS/HCC) Mixed hyperlipidemia Restless leg syndrome Restless legs syndrome (RLS) Primary hypertension (CMS/HCC) Unspecified essential hypertension Type 2 diabetes mellitus without complication, without long-term current use of insulin (CMS/HCC) Other insomnia Mixed hyperlipidemia (CMS/HCC) Mixed hyperlipidemia documented in this encounter [facility] note* Diagnosis Anxiety and depression (CMS/HCC)- Primary Other insomnia Class 2 severe obesity due to excess calories with serious comorbidity and body mass index (BMI) of 37.0 to 37.9 in adult (CMS/HCC) Type 2 diabetes mellitus without complication, without long-term current use of insulin (CMS/HCC) ROLANDO (obstructive sleep apnea) Obstructive sleep apnea (adult) (pediatric) Other insomnia- Primary ROLANDO (obstructive sleep apnea) Obstructive sleep apnea (adult) (pediatric) COPD mixed type (CMS/HCC) Tobacco dependence syndrome Tobacco use disorder BMI 37.0-37.9, adult Anxiety and depression (CMS/HCC) Restless leg syndrome Restless legs syndrome (RLS) Other insomnia- Primary Anxiety and depression (CMS/HCC) Restless leg syndrome Restless legs syndrome (RLS) Acute non-recurrent maxillary sinusitis Right upper quadrant abdominal pain Other fatigue- Primary Morbid (severe) obesity due to excess calories (CMS/HCC) Essential (primary) hypertension (CMS/HCC) Unspecified essential hypertension Body mass index (BMI) 37.0-37.9, adult Chronic respiratory failure with hypoxia (CMS/[facility]) Type 2 diabetes mellitus with other specified complication (CMS/HCC) Atherosclerosis of aorta (CMS/HCC) Atherosclerosis of aorta Mixed hyperlipidemia (CMS/HCC) Mixed hyperlipidemia Anxiety and depression (CMS/HCC) Restless leg syndrome Restless legs syndrome (RLS) Primary hypertension (CMS/HCC) Unspecified essential hypertension Type 2 diabetes mellitus without complication, without long-term current use of insulin (CMS/HCC) Right upper quadrant abdominal pain COPD mixed type (CMS/HCC) Gastroesophageal reflux disease without esophagitis Esophageal reflux Anxiety and depression (CMS/HCC)- Primary Mixed hyperlipidemia (CMS/HCC) Mixed hyperlipidemia Restless leg syndrome Restless legs syndrome (RLS) Primary hypertension (CMS/HCC) Unspecified essential hypertension Type 2 diabetes mellitus without complication, without long-term current use of insulin (CMS/[facility]) Other insomnia Gastroesophageal reflux disease without esophagitis Esophageal reflux documented in this encounter [facility]* Diagnosis Gastroesophageal reflux disease without esophagitis Esophageal reflux documented in this encounter [facility]* Diagnosis Anxiety and depression ([facility])- Primary Mixed hyperlipidemia ([facility]) Mixed hyperlipidemia Restless leg syndrome Restless legs syndrome (RLS) Primary hypertension ([facility]) Unspecified essential hypertension Type 2 diabetes mellitus without complication, without long-term current use of insulin ([facility]) Other insomnia documented in this encounter [facility] course Narrative No data available for this section [facility] No data available for this section [facility] No data available for this section [facility] Summary Purpose Family History No Family History [...] Found No data available for this section Advance Directives No Advanced Directives Records FoundNo Advanced Directives Records FoundNo Advanced Directives Records FoundNo Advanced Directives Records FoundNo Advanced Directives Records FoundNo Advanced Directives Records FoundNo Advanced Directives Records FoundNo Advanced Directives Records FoundNo Advanced Directives Records FoundNo Advanced Directives Records FoundNo Advanced Directives Records Found Additional Source Comments INFORMATION SOURCE (unrecogn ized section and content) DATE CREATED AUTHOR 06/22/2021 [facility] DATE CREATED AUTHOR AUTHOR'S ORGANIZ ATION 12/15/2021 [facility] DATE CREATED AUTHOR AUTHOR'S ORGANIZ ATION 02/26/2023 [facility] DATE CREATED AUTHOR AUTHOR'S ORGANIZ ATION 09/10/2023 [facility] DATE CREATED AUTHOR AUTHOR'S ORGANIZ ATION 07/17/2024 [facility] DATE CREATED AUTHOR AUTHOR'S ORGANIZ ATION 07/23/2024 [facility] DATE CREATED AUTHOR AUTHOR'S ORGANIZ ATION 07/24/2024 [facility] DATE CREATED AUTHOR AUTHOR'S ORGANIZ ATION 07/26/2024 [facility] EPIC Patient Care team informatio n (unrecognized section and content) Slipper Maker Relationship Specialty Start Date End Date Jose M Light MD [address] [place] [phone] PCP - General Family Medicine 10/18/23 Brea Jj, TOBIAS [address] [place] [phone] Nurse Practitioner Family Medicine 10/18/23 Slipper Maker Relationship Specialty Start Date End Date Jose M Light MD [address] [place] [phone] PCP - General Family Medicine 10/18/23 Brea Jj NP [address] [place] [phone] Nurse Practitioner Family Medicine 10/18/23 Slipper Maker Relationship Specialty Start Date End Date Jose M Light MD [address] [place] [phone] PCP - General Family Medicine 10/18/23 Brea jJ NP [address] [place] [phone] Nurse Practitioner Family Medicine 10/18/23 Slipper Maker Relationship Specialty Start Date End Date Jose M Light MD [address] [place] [phone] PCP - General Family Medicine 10/18/23 Brea Jj NP [address] [place] [phone] PCP - [facility] 07/31/24 Brea Jj NP [address] [place] [phone] Nurse Practitioner [facility] 10/18/23 Slipper Maker Relationship Specialty Start Date End Date Jose M Light MD [address] [place] [phone] PCP - [facility] 10/18/23 Brea Jj NP [address] [place] [phone] [facility] 07/31/24 Brea Jj NP [address] [place] [phone] Nurse Practitioner [facility] 10/18/23 Slipper Maker Relationship Specialty Start Date End Date Jose M Light MD [address] [place] [phone] PCP - [facility] 10/18/23 Brea Jj NP [address] [place] [phone] PCP [facility] 07/31/24 Brea Jj NP [address] [place] [phone] Nurse Practitioner Family Medicine 10/18/23 Slipper Maker Relationship Specialty Start Date End Date Jose M Light MD [address] [place] [phone] PCP - General Family Medicine 10/18/23 Brea Jj NP [address] [place] [phone] Nurse Practitioner Family Medicine 10/18/23 Slipper Maker Relationship Specialty Start Date End Date Jose M Light MD [address] [place] [phone] PCP - General Family Medicine 10/18/23 Brea Jj NP [address] [place] [phone] Nurse Practitioner Family Medicine 10/18/23 Slipper Maker Relationship Specialty Start Date End Date Jose M Light MD [address] [place] [phone] PCP - General Family Medicine 10/18/23 Brea Jj NP [address] [place] [phone] Nurse Practitioner Family Medicine 10/18/23 Reason for Visit (unrecogniz ed section and content) Reason Comments Med Refill Reason Onset Date Comments Med Refill 09/11/2024 FOR RECORDS PERTAINING TO PATIENTS WHO ARE [...] BE BASED ON THE PRIMARY CLINICAL RECORDS. [facility] provides no warranty or guarantee of the accuracy or completeness of information in this document.
--- NOTE | 2024-10-27 10:41 | ED_ITS ---
HPI HPI - General Adult General Chief complaint: Nausea/Vomiting/Diarrhea Stated complaint: DIARRHEA Time Seen by Provider: 10/27/24 10:37 Source: patient Mode of arrival: walk-in History of Present Illness HPI narrative: Patient is a 57-year-old female who is presenting to the ER with chief complaint of loose and watery stool since . Patient has started no new antibiotics, no new water sources. No recent traveling. No other sick contacts. Patient has used [id number] Imodium with some relief. Patient is not lightheaded or dizzy. Patient has no other acute complaints. Patient is having intermittent abdominal cramping. Patient's PCP is Brea Briceno. All systems are negative except as noted/marked. All systems reviewed and otherwise negative. Nurses note and vital signs reviewed and patient is not hypoxic. General: The patient appears well and in no apparent distress. Patient is resting comfortably on cart. Patient is not toxic, lethargic, or listless Skin: Warm, dry, no pallor noted. There is no rash noted. No petechiae, purpura. Head: Normocephalic, atraumatic Eye: Normal conjunctiva, no drainage, EOMI. PERRL Ears, Nose, Mouth, and Throat: oral mucosa is moist. Nares patent. Mouth without vesicles. Cardiovascular: Regular Rate and Rhythm, no murmur, gallop, rub Respiratory: Patient is in no distress, no accessory muscle use, lungs are clear to auscultation, no wheezing, rales or rhonchi Back: non-tender, no CVA tenderness bilaterally to percussion. No CT LS midline pain GI: Obese, no flank pain bilateral, no peritoneal signs, no tenderness to palpation, no masses appreciated. No rebound, guarding, or rigidity noted. No distention Musculoskeletal: Patient has full range of motion of all of the extremities, no motor, sensory, or focal neurological deficits Neurological: A&O x4, normal speech Psychiatric: Cooperative Related Data Home Medications ?Medication ?Instructions ?Recorded ?Confirmed albuterol sulfate 90 mcg/actuation inhalation 03/31/24 aerosol inhaler amitriptyline 50 mg tablet mg 03/31/24 apixaban 5 mg tablet (Eliquis) mg 03/31/24 aspirin 81 mg tablet,delayed mg 03/31/24 release atorvastatin 40 mg tablet mg 03/31/24 buspirone 15 mg tablet mg 03/31/24 calcium 600 mg (as tab 03/31/24 carbonate)-vitamin D3 5 mcg (200 unit) tablet celecoxib 200 mg capsule mg 03/31/24 clonazepam 0.5 mg tablet mg 03/31/24 duloxetine 60 mg capsule,delayed mg PO 03/31/24 release ferrous sulfate 325 mg (65 mg mg 03/31/24 iron) tablet (FeroSul) fluticasone propionate 110 inhalation 03/31/24 mcg/actuation HFA aerosol inhaler furosemide 20 mg tablet mg 03/31/24 gabapentin 300 mg capsule mg 03/31/24 glycopyrrolate 9 mcg-formoterol inhalation 03/31/24 4.8 mcg HFA aerosol inhaler (Bevespi Aerosphere) ipratropium 0.5 mg-albuterol 3 mg ml inhalation 03/31/24 (2.5 mg base)/3 mL nebulization soln lamotrigine 25 mg tablet mg 03/31/24 lisinopril 20 tab 03/31/24 mg-hydrochlorothiazide 25 mg tablet multivitamin tab 03/31/24 pioglitazone 15 mg tablet mg 03/31/24 potassium chloride 10 mEq meq PO 03/31/24 tablet,extended release pramipexole 0.5 mg tablet mg 03/31/24 theophylline 300 mg mg PO 03/31/24 tablet,extended release,12 hr Previous Rx's ?Medication ?Instructions ?Recorded hydrocodone 5 mg-acetaminophen 325 1 tab PO Q6H PRN pain 5 days #20 03/31/24 mg tablet tabs ondansetron 4 mg disintegrating 4 mg PO Q6H PRN nausea and 03/31/24 tablet vomiting #20 tabs dicyclomine 20 mg tablet 20 mg PO TID PRN abdominal pain #7 10/27/24 tabs ondansetron 4 mg disintegrating 4 mg PO Q4H PRN nausea and 10/27/24 tablet vomiting 3 days #6 tabs Allergies Allergy/AdvReac Type Severity Reaction Status Date / Time No Known Drug Allergies Allergy Verified 03/31/24 20:04 Opioid HPI Opioid Management Most Recent Opioid Data: Last Pain Scale 10 03/31/24 20:51 03/31/24 PFSH PFSH Social History Smoking status: Former smoker Little interest or pleasure in doing things: not at all Feeling down, depressed, or hopeless: not at all Exam Constitutional Vital Signs, click to edit/add: Last Vital Signs Temp 97.6 F 10/27/24 09:57 Pulse 105 H 10/27/24 09:57 Resp 16 10/27/24 09:57 BP 171/75 H 10/27/24 09:57 Pulse Ox 97 10/27/24 09:57 O2 Del Method Room Air 10/27/24 09:57 Course Vital Signs Vital signs: Vital Signs Temperature 97.6 F 10/27/24 09:57 Pulse Rate 105 H 10/27/24 09:57 Respiratory Rate 16 10/27/24 09:57 Blood Pressure 171/75 H 10/27/24 09:57 Pulse Oximetry 97 10/27/24 09:57 Oxygen Delivery Method Room Air 10/27/24 09:57 Temperature 97.6 F 10/27/24 09:57 Pulse Rate 105 H 10/27/24 09:57 Respiratory Rate 16 10/27/24 09:57 Blood Pressure 171/75 H 10/27/24 09:57 Pulse Oximetry 97 10/27/24 09:57 Oxygen Delivery Method Room Air 10/27/24 09:57 Medical Decision Making MDM Narrative Medical decision making narrative: Patient lab work shows no significant findings. No elevated white blood cells, no other acute findings. Patient has no signs of urinary tract infection. Patient will be sent home a prescription for Zofran and Bentyl to use if needed for abdominal cramping. Patient feels much better after IV fluids. Lab Data Labs: Lab Results 10/27/24 10/27/24 Range/Units 10:50 12:00 WBC 9.4 (4.0-11.0) 10^3/uL RBC 4.74 (4.20-5.40) 10^6/uL Hgb 14.4 (12.0-16.0) g/dL Hct 43.0 (36.0-48.0) % MCV 90.7 (81.0-99.0) fL MCH 30.4 (26.7-34.0) pg MCHC 33.5 (29.9-35.2) g/dL RDW 14.5 (11.0-15.0) % Plt Count 149 L (150-450) 10^3/uL MPV 12.2 (9.5-13.5) fL Neut % (Auto) 77.1 H (43.0-75.0) % Lymph % (Auto) 10.9 L (20.5-60.0) % Gove % (Auto) 7.4 (1.7-12.0) % Eos % (Auto) 4.2 (0.9-7.0) % Baso % (Auto) 0.1 L (0.2-2.0) % Neut # (Auto) 7.3 H (1.4-6.5) 10^3/uL Lymph # (Auto) 1.0 L (1.2-3.8) 10^3/uL Gove # (Auto) 0.7 (0.3-0.8) 10^3/uL Eos # (Auto) 0.4 (0.0-0.7) 10^3/uL Baso # (Auto) 0.0 (0.0-0.1) 10^3/uL Abs Immat Gran (auto) 0.03 (0.00-0.03) 10^3/uL Imm/Tot Granulo (auto) 0.3 (0.0-0.5) % Sodium 140 (136-145) mmol/L Potassium 3.9 (3.5-5.1) mmol/L Chloride 104 (98-107) mmol/L Carbon Dioxide 28.5 (21.0-32.0) mmol/L Anion Gap 11.4 BUN 20.0 H (7.0-18.0) mg/dL Creatinine 0.96 (0.55-1.02) mg/dL Est GFR ( Amer) >60 (>=60 mL/min/1.73m^2) Est GFR (Non-Af Amer) 59 L (>=60 mL/min/1.73m^2) BUN/Creatinine Ratio 20.8 Glucose 124 H (74-106) mg/dL Calcium 9.5 (8.5-10.1) mg/dL Total Bilirubin 0.5 (0.2-1.0) mg/dL AST 21 (15-37) U/L ALT 26 (14-59) U/L Alkaline Phosphatase 84 (46-116) U/L Total Protein 7.3 (6.4-8.2) g/dL Albumin 3.4 (3.4-5.0) g/dL Globulin 3.9 g/dL Albumin/Globulin Ratio 0.9 Lipase 41.0 (16.0-77.0) U/L Urine Color Lt. yellow (YELLOW) Urine Clarity Clear (CLEAR) Urine pH 6.0 (5.0-9.0) Ur Specific Tennyson 1.010 (1.005-1.025) Urine Protein Negative (NEG/TRACE) mg/dL Urine Glucose (UA) Negative (NEGATIVE) mg/dL Urine Ketones Negative (NEGATIVE) mg/dL Urine Occult Blood Negative (NEGATIVE) Urine Nitrite Negative (NEGATIVE) Urine Bilirubin Negative (NEGATIVE) Urine Urobilinogen 0.2 (0.2-1.0) EU/dL Ur Leukocyte Esterase Negative (NEGATIVE) Urine RBC None seen (0-2) #/HPF Urine WBC None seen (NONE SEEN) #/HPF Ur Squamous Epith Cells Rare (NONE/RARE) #/LPF Urine Crystals None seen (None Seen) #/HPF Urine Bacteria Trace A (NONE SEEN) #/HPF Urine Casts None seen (NONE SEEN) #/LPF Urine Mucus Trace A (NONE SEEN) Ur Culture Indicated? No Discharge Plan Discharge Chief Complaint: Nausea/Vomiting/Diarrhea Clinical Impression: Diarrhea, Abdominal cramping Patient Disposition: Home, Self-Care Time of Disposition Decision: 12:46 Condition: Fair Mode of Transportation: Private Vehicle Prescriptions / Home Meds: New dicyclomine 20 mg tablet 20 mg PO TID PRN (Reason: abdominal pain) Qty: 7 0RF ondansetron 4 mg tablet,disintegrating 4 mg PO Q4H PRN (Reason: nausea and vomiting) 3 Days Qty: 6 0RF No Action aspirin 81 mg tablet,delayed release (DR/EC) amitriptyline 50 mg tablet albuterol sulfate 90 mcg/actuation HFA aerosol inhaler INHALATION Eliquis 5 mg tablet multivitamin Tablet celecoxib 200 mg capsule pioglitazone 15 mg tablet atorvastatin 40 mg tablet ipratropium-albuterol 0.5 mg-3 mg(2.5 mg base)/3 mL solution for nebulization INHALATION clonazepam 0.5 mg tablet potassium chloride 10 mEq tablet extended release PO calcium carbonate-vitamin D3 600 mg-5 mcg (200 unit) tablet theophylline 300 mg tablet extended release 12 hr PO lamotrigine 25 mg tablet pramipexole 0.5 mg tablet ferrous sulfate [FeroSul] 325 mg (65 mg iron) tablet gabapentin 300 mg capsule lisinopril-hydrochlorothiazide 20-25 mg tablet furosemide 20 mg tablet fluticasone propionate 110 mcg/actuation HFA aerosol inhaler INHALATION buspirone 15 mg tablet duloxetine 60 mg capsule,delayed release(DR/EC) PO Bevespi Aerosphere 9-4.8 mcg HFA aerosol inhaler INHALATION hydrocodone-acetaminophen 5-325 mg tablet 1 tab PO Q6H PRN (Reason: pain) 5 Days Qty: 20 0RF ondansetron 4 mg tablet,disintegrating 4 mg PO Q6H PRN (Reason: nausea and vomiting) Qty: 20 0RF Print Language: Citizen [place] Instructions: Acute Diarrhea (ED), Abdominal Pain (ED) Additional Instructions: Increase fluids, water, Powerade, Gatorade Use Zofran if needed for nausea, Bentyl as needed for abdominal cramping. If you have diarrhea or loose stool for more than 7 to 10 days, follow-up with your PCP stool cultures or additional testing or medication as needed Referrals: Brea Jj NP [Primary Care Provider] - 1 week Discharge Date/Time: 10/27/24 12:53
[2024-10-27] MEDS: 0.9 % SODIUM CHLORIDE 1,000 ML 999 ML IV (10:55)
[2024-10-27 10:59] LABS: Basophils Percent Auto 0.1 % (0.2-2.0); Eosinophils Absolute Auto 0.4 10^3/uL (0.0-0.7); Eosinophils Percent Auto 4.2 % (0.9-7.0); Hemoglobin 14.4 g/dL (12.0-16.0); Immature Granulocytes Abs Auto 0.03 10^3/uL (0.00-0.03); Immature Granulocytes Pct Auto 0.3 % (0.0-0.5); Lymphocytes Percent Auto 10.9 % (20.5-60.0); Mean Corpuscular HGB Conc 33.5 g/dL (29.9-35.2); Mean Corpuscular Hemoglobin 30.4 pg (26.7-34.0); Mean Corpuscular Volume 90.7 fL (81.0-99.0); Mean Platelet Volume 12.2 fL (9.5-13.5); Monocytes Absolute Auto 0.7 10^3/uL (0.3-0.8); Monocytes Percent Auto 7.4 % (1.7-12.0); Neutrophils Absolute Auto 7.3 10^3/uL (1.4-6.5); Neutrophils Percent Auto 77.1 % (43.0-75.0); Platelet Count 149 10^3/uL (150-450); Red Blood Count 4.74 10^6/uL (4.20-5.40); Red Cell Distribution Width 14.5 % (11.0-15.0); White Blood Count 9.4 10^3/uL (4.0-11.0)
[2024-10-27] MEDS: ONDANSETRON PF 4 MG/2 ML VIAL IV (11:00)
[2024-10-27 11:20] LABS: Alanine Aminotransferase 26 U/L (14-59); Albumin Globulin Ratio 0.9; Albumin Level 3.4 g/dL (3.4-5.0); Alkaline Phosphatase 84 U/L (46-116); Anion Gap 11.4; Aspartate Amino Transferase 21 U/L (15-37); BUN Creatinine Ratio 20.8; Bilirubin Total 0.5 mg/dL (0.2-1.0); Calcium 9.5 mg/dL (8.5-10.1); Carbon Dioxide 28.5 mmol/L (21.0-32.0); Chloride 104 mmol/L (98-107); Estimated GFR (African America >60 (>=60 mL/min/1.73m^2); Estimated GFR (Non-African Ame 59 (>=60 mL/min/1.73m^2); Globulin 3.9 g/dL; Glucose 124 mg/dL (74-106); Potassium 3.9 mmol/L (3.5-5.1); Sodium 140 mmol/L (136-145); Total Protein 7.3 g/dL (6.4-8.2)
[2024-10-27 12:26] LABS: Bilirubin Urine NEGATIVE (NEGATIVE); Blood Urine NEGATIVE (NEGATIVE); Clarity Urine CLEAR (CLEAR); Color Urine LT. YELLOW (YELLOW); Glucose Urine UA NEGATIVE (NEGATIVE); Ketones Urine NEGATIVE (NEGATIVE); Leukocyte Esterase Urine NEGATIVE (NEGATIVE); Nitrite Urine NEGATIVE (NEGATIVE); Protein Urine NEGATIVE (NEG/TRACE); Urobilinogen Urine 0.2 EU/dL (0.2-1.0)
[2024-10-27 12:39] LABS: Bacteria Urine TRACE #/HPF (NONE SEEN); Crystals Seen? None Seen #/HPF (None Seen); Mucus Urine TRACE (NONE SEEN); RBC Urine NONE SEEN #/HPF (0-2); Squamous Epithelial Cell Urine RARE #/LPF (NONE/RARE); WBC Urine NONE SEEN #/HPF (NONE SEEN)
[2024-10-27 12:40] LABS: Cast Seen? NONE SEEN #/LPF (NONE SEEN); Urine Culture Indicated NO
== END 2024-10-27 12:53 | disposition home or self-care (01) ==
PROVIDERS: Emergency Provider Emergency Medicine; PCP Nurse Practitioner
DX: R19.7 Diarrhea, unspecified (principal); R10.9 Unspecified abdominal pain; Z87.891 Personal history of nicotine dependence
CPT/HCPCS: 36415; 80053; 81001; 83690; 85025; 96361; 96374; 99284; J2405

== ENCOUNTER 2024-12-04 07:53 | Outpatient (OUT) | payer OTHER, SELFPAY ==
--- OUTSIDE RECORDS SUMMARY | 2024-12-04 08:13 | XMS_ITS | CCD ---
Author Organization [facility] Care Team Providers Care Butadiene Converter Helper Name Role Phone TOSHIA SAM Attending Unavailable TOSHIA SAM Admitting Unavailable SELF, REFERRED Referring Unavailable SELF, REFERRED Primary Care Unavailable AICHHOLZ, DIRECTOR WORKERS COMPENSATION BREA Primary Care Unavailable SAMSA ., CORRINA Consulting Unavailable SAMSA ., CORRINA Admitting Unavailable SAMSA ., CORRINA Attending Unavailable AICHHOLZ, DIRECTOR WORKERS COMPENSATION BREA Attending Unavailable AICHHOLZ, DIRECTOR WORKERS COMPENSATION BREA Consulting Unavailable AICHHOLZ, DIRECTOR WORKERS COMPENSATION BREA Primary Care Unavailable AICHHOLZ, DIRECTOR WORKERS COMPENSATION BREA Admitting Unavailable AICHHOLZ, DIRECTOR WORKERS COMPENSATION BREA Primary Care Unavailable DR MIGUEL MEDEROS Consulting Unavailable SAMSA ., CORRINA Admitting Unavailable SAMSA ., CORRINA Attending Unavailable SAMSA ., CORRINA Consulting Unavailable SAMSA ., CORRINA Attending Unavailable SAMSA ., CORRINA Consulting Unavailable SAMSA ., CORRINA Admitting Unavailable AICHHOLZ, DIRECTOR WORKERS COMPENSATION BREA Primary Care Unavailable AICHHOLZ, DIRECTOR WORKERS COMPENSATION BREA Attending Unavailable LETY, DR LEANA Worrell Consulting Unavailable AICHHOLZ, DIRECTOR WORKERS COMPENSATION BREA Primary Care Unavailable AICHHOLZ, DIRECTOR WORKERS COMPENSATION BREA Admitting Unavailable AICHHOLZ, DIRECTOR WORKERS COMPENSATION BREA Consulting Unavailable PAY ., DR SALAZAR Admitting Unavailable PAY ., DR SALAZAR Attending Unavailable PAY ., DR SALAZAR Consulting Unavailable AICHHOLZ, DIRECTOR WORKERS COMPENSATION BREA Primary Care Unavailable MEDARDOCHNY .JUAN Consulting Unavailabl e Rastealla, Justine Consulting Unavailable AICHHOLZ, DIRECTOR WORKERS COMPENSATION BREA Primary Care Unavailable PAY ., DR SALAZAR Attending Unavailable PAY ., DR SALAZAR Admitting Unavailable GRECHNY .JUAN Consulting Unavailabl e POLICTERESA, KENDY Consulting Unavailable AICHHOLZ, DIRECTOR WORKERS COMPENSATION BREA Attending Unavailable AICHHOLZ, DIRECTOR WORKERS COMPENSATION BREA Consulting Unavailable AICHHOLZ, DIRECTOR WORKERS COMPENSATION BREA Primary Care Unavailable AICHHOLZ, DIRECTOR WORKERS COMPENSATION BREA Admitting Unavailable AICHHOLZ, BREA J Primary Care Physician Yessica SPENCER Unavailable TOSHIA SAM Attending Unavailable MARLENE SOTO Attending Unavailable Aichholz EXCELSIOR MACHINE FEEDER, Brea Unavailable Jose M Light MD Primary Care Provider Swapna, [facility] Mariama Chen Attending U navailable Swapna, [facility] Mariama Chen Admitting U navailable Ramses Hair Attending Unavailable Moses Fischer Attending Unavailable Swapna, Mariama Chen Attending Unavailable Gigibosjose, Mariama Chen Attending Unavailable Swapna, Mariama Chen Attending Unavailable Gigiboske, Mariama Chen Admitting Unavailable Gigiboske, Mariama Chen Admitting Unavailable Swapna, Mariama Chen Attending Unavailable MD Roby Bob Admitting Unavail able MD Roby Bob Attending Unavail able Aichholsherwin EXCELSIOR MACHINE FEEDER, Brea Unavailable Jose M Light MD Primary Care Provider Angelyhholsherwin EXCELSIOR MACHINE FEEDER, Brea Unavailable ANGELYHHOLZ, BREA Attending Unavailable AICHHOLZ, BREA Attending Unavailable AICHHOLZ, BREA Attending Unavailable AICHHOLZ, BREA Attending Unavailable AICHHOLZ, BREA Attending Unavailable AICHHOLZ, BREA Attending Unavailable ANGELYHHOLZ, BREA Attending Unavailable Allergies Allergy Classification Reported Allergen(s) Allergy Type Date of Onset Reaction(s) Facility (1 source) No Known Medication Allergies; Translations: [No Known Medication Allergies] Propensity to adverse reactions (disorder) [facility] Repository Medications Current Medications Medication Drug Class(es) Dates Sig (Normalized) Sig (Original) [id number] 200 actuat albuterol 0.09 mg/actuat metered dose inhaler (17 sources) beta2-Adrenergic Agonist take 2 puff(s) by [...] BID, # 180 tab(s), Refills(s) 3, Pharmacy: [facility] [id number], 175, cm, 06/28/23 10:58:00 EDT, Height/Length Dosing, 114.6, kg, 06/28/23 10:58:00 EDT, Weight Dosing Start Date: 06/28/23 Status: Ordered Start: 06-17-2023 End: 10-29-2024 take 2 tablets by mouth twice daily, then take 1 tablet by mouth twice daily Eliquis 5 MG tablet TAKE TWO TABLETS BY MOUTH TWICE A DAY FOR 6 DAYS, THE TAKE ONE TABLET TWICE A DAY FOR 30 DAYS 06/17/2023 10/29/2024 Discontinued (Therapy completed) aspirin 81 mg delayed release oral tablet (20 sources) Platelet Aggregation Inhibitor, Nonsteroidal Anti-inflammatory Drug Start: 05-09-2024 End: 11-01-2024 take 1 tablet by mouth once daily Aspirin Low Dose 81 MG EC tablet Take 81 mg by mouth Daily 11/02/2024 Active Start: 06-17-2023 Aspirin Low Do se 81 mg oral enteric coated tablet Refills(s) 0 Start Date: 06/17/23 Status: Ordered take 1 tablet by tamar th in the morning Aspirin Low Dose 81 MG EC tablet Take 81 mg by mouth in the morning. 0 Active atorvastatin 40 mg oral tablet (20 sources) HMG-CoA Reductase Inhibitor Start: 10-15-2024 End: 01-02-2025 take 1 tablet by mouth at bedtime atorvastatin (Lipitor) 40 MG tablet Indications: Mixed hyperlipidemia (CMS/HCC) Take 1 tablet (40 mg) by mouth at bedtime 30 tablet 5 12/03/2024 01/02/2025 Active Start: 05-23-2024 End: 10-11-2024 take 1 tablet [...] 15 mg oral tablet (20 sources) Start: 10-15-2024 End: 01-02-2025 take 1 tablet by mouth in the morning busPIRone (Buspar) 15 MG tablet Indications: Anxiety and depression (CMS/HCC) Take 1 tablet (15 mg) by mouth in the morning and 1 tablet (15 mg) before bedtime. 60 tablet 5 12/03/2024 01/02/2025 Active Start: 05-23-2024 End: 08-23-2024 take 1 tablet by mouth in the morning busPIRone (Buspar) 15 MG tablet Indications: Anxiety and depression (CMS/HCC) Take 1 tablet (15 mg) by mouth in the morning and 1 tablet (15 mg) before bedtime. 60 tablet 5 07/24/2024 08/23/2024 Active Start: 06-17-2023 End: 03-09-2024 take 1 tablet by mouth three times daily busPIRone 15 mg Tab 15 mg = 1 tab(s), Oral, TID, # 90 tab(s), Refills(s) 0 Start Date: 06/17/23 Status: Ordered calcium carbonate 1500 mg / cholecalciferol 200 unt oral tablet (18 sources) Vitamin D Start: 05-09-2024 End: 10-06-2024 take 1 tablet by mouth in the morning Calcium Carb-Cholecalciferol 600-5 MG-MCG tablet Take 1 tablet by mouth in the morning and 1 tablet before bedtime. 10/04/2024 Active Start: 06-09-2023 take 1 tablet by tamar th in the morning Calcium Carb-Cholecalciferol 600-5 MG-MCG tablet Take 1 tablet by mouth in the morning and 1 tablet before bedtime. 0 06/09/2023 Active celecoxib 200 mg oral capsule (15 sources) Nonsteroidal Anti-inflammatory Drug Start: 06-10-2024 End: [...] 01/07/2024 Active clonazePAM 0.5 mg oral tablet (20 sources) Benzodiazepine Start: 05-11-2024 End: 01-02-2025 take 1 tablet by mouth at bedtime clonazePAM (KlonoPIN) 0.5 MG tablet Indications: Anxiety and depression (CMS/HCC) , Restless leg syndrome , Other insomnia Take 1 tablet (0.5 mg) by mouth at bedtime 30 tablet 2 12/03/2024 01/02/2025 Active Start: 12-05-2023 End: 01-04-2024 take 1 tablet by mouth at bedtime clonazePAM (KlonoPIN) 0.5 MG tablet Indications: Other insomnia , Anxiety and depression (CMS/HCC) , Restless leg syndrome Take 1 tablet (0.5 mg) by mouth at bedtime 30 tablet 1 12/05/2023 01/04/2024 Active Daily Harvinder oral tablet (10 sources) Start: 06-17-2023 Daily Harvinder ora l tablet 1 tab(s), Oral, Daily, 30 tab(s), Refill(s) 0 Start Date: 06/17/23 Status: Ordered dicyclomine hydrochloride 20 mg oral tablet (4 sources) Anticholinergic Start: 12-03-2024 End: 01-02-2025 take 1 tablet by mouth every eight hours dicyclomine (Bentyl) 20 MG tablet Indications: Nausea and vomiting, unspecified vomiting type , Diarrhea, unspecified type Take 1 tablet (20 mg) by mouth every 8 (eight) hours if needed (abdominal pain or cramps) 90 tablet 1 12/03/2024 01/02/2025 Active Start: 09-25-2023 End: 10-02-2023 take 1 capsule by mouth four times daily Bentyl 10 mg Cap 10 mg = 1 cap(s), Oral, QID, X 7 day(s), # 28 cap(s), Refills(s) 0, Pharmacy: [facility] 1155, 175, cm, 09/25/23 18:25:00 EST, Height/Length Dosing, 121, kg, 09/25/23 18:25:00 EST, Weight Dosing Start Date: 09/25/23 Stop Date: 10/02/23 Status: Ordered DULoxetine 60 mg delayed release oral capsule (20 sources) Serotonin and Norepinephrine Reuptake Inhibitor Start: 10-15-2024 End: 01-02-2025 take 1 capsule by mouth once daily DULoxetine (Cymbalta) [address] capsule Indications: Anxiety and depression (CMS/HCC) Take 1 capsule (60 mg) by mouth Daily 30 capsule 5 12/03/2024 01/02/2025 Active Start: 06-09-2023 End: 08-23-2024 take 1 capsule by mouth once daily DULoxetine (Cymbalta) [address] capsule Indications: Anxiety and depression (CMS/HCC) Take 1 capsule (60 mg) by mouth Daily 30 capsule 5 07/24/2024 08/23/2024 Active ferrous sulfate 325 mg oral tablet (17 sources) Start: 10-29-2024 End: 01-02-2025 take 1 tablet by mouth in the morning, then take 1 tablet by mouth once daily at mealtime ferrous sulfate (FeroSul) 325 (65 Fe) MG tablet Indications: Iron deficiency anemia, unspecified iron deficiency anemia type Take 1 tablet (325 mg) by mouth in the morning. Take with meals. Take 1 tablet by mouth Daily. 30 tablet 5 12/03/2024 01/02/2025 Active Start: 01-19-2024 End: 10-29-2024 take 1 tablet by mouth once daily FeroSul 325 (65 Fe) MG tablet Take 1 tablet by mouth Daily 01/19/2024 10/29/2024 Discontinued (Reorder) Ferrousal 325 mg oral tablet (2 sources) Start: 01-19-2024 take 1 tablet by mouth once daily Ferrousal 325 mg oral tablet 325 mg = 1 tab(s), Oral, Daily, # 30 tab(s), Refills(s) 6, Pharmacy: [facility] 1155, 175, cm, 01/16/24 11:22:00 EDT, Height/Length Dosing, 118, kg, 01/16/24 11:22:00 EDT, Weight Dosing Start Date: 01/19/24 Status: Ordered fluticasone propionate 0.05 mg/actuat metered dose nasal spray (20 sources) Corticosteroid Start: 11-05-2024 take 2 spray(s) nasal route once daily fluticasone (Flonase) 50 MCG/ACT nasal spray Administer 2 sprays into each nostril Daily 11/05/2024 Active Start: 06-17-2023 take 2 puff(s) by in halation twice daily Flovent HFA 110 Aerosol = 2 puff(s), Inhalation, BID, # 12 gram, Refills(s) 0 Start Date: 06/17/23 Status: Ordered Start: 06-17-2023 fluticasone Na margaret 0.05 mg/inh [place] 2 spray(s), Nasal, Daily, 16 gram, Refill(s) 0, each nostril Start Date: 06/17/23 Status: Ordered Start: 04-13-2023 End: 10-29-2024 take 2 spray(s) nasal route once daily fluticasone (Flonase) 50 MCG/ACT nasal spray INSTILL 2 SPRAYS IN EACH NOSTRIL ONCE DAILY 04/13/2023 10/29/2024 Discontinued (Therapy completed) take 2 puff(s) by in halation in [...] 20 mg by mouth in the morning. 06/09/2023 Active gabapentin 300 mg oral capsule (20 sources) Anti-epileptic Agent Start: 10-15-2024 End: 01-02-2025 take 1 capsule by mouth once daily gabapentin (Neurontin) 300 MG capsule Indications: Restless leg syndrome Take 1 capsule (300 mg) by mouth Daily 30 capsule 5 12/03/2024 01/02/2025 Active Start: 05-23-2024 End: 08-23-2024 take 1 capsule by mouth once daily gabapentin (Neurontin) 300 MG capsule Indications: Restless leg syndrome Take 1 capsule (300 mg) by mouth Daily 30 capsule 5 07/24/2024 08/23/2024 Active Start: 06-17-2023 take 1 capsule by [facility] twice daily gabapentin 300 mg Cap 300 mg = 1 cap(s), Oral, BID, # 60 cap(s), Refills(s) 0 Start Date: 06/17/23 Status: Ordered hydroCHLOROthiazide 25 mg / lisinopril 20 mg oral tablet (20 sources) Thiazide Diuretic, Angiotensin Converting Enzyme Inhibitor Start: 10-15-2024 End: 01-02-2025 take 1 tablet by mouth once daily lisinopril-hydroCHLOROthiazide 20-25 MG tablet Indications: Primary hypertension (CMS/HCC) Take 1 tablet by mouth Daily 30 tablet 5 12/03/2024 01/02/2025 Active Start: 06-17-2023 End: 08-23-2024 take 1 tablet by mouth once daily lisinopril-hydroCHLOROthiazide 20-25 MG tablet Indications: Primary hypertension (CMS/HCC) Take 1 tablet by mouth Daily 30 tablet 5 07/24/2024 08/23/2024 Active lamoTRIgine 25 mg oral tablet (20 sources) Mood Stabilizer, Anti-epileptic Agent Start: 10-15-2024 End: 01-02-2025 take 2 tablets by mouth at bedtime lamoTRIgine (LaMICtal) 25 MG tablet Indications: Anxiety and depression (CMS/HCC) Take 2 tablets (50 mg) by mouth at bedtime 60 tablet 5 12/03/2024 01/02/2025 Active Start: 04-10-2024 End: 08-23-2024 take 2 tablets by mouth at bedtime lamoTRIgine (LaMICtal) 25 MG tablet Indications: Anxiety and depression (CMS/HCC) Take 2 tablets (50 mg) by mouth at bedtime 60 tablet 5 07/24/2024 08/23/2024 Active Start: 10-12-2023 take 2 tablets by mo [facility] at bedtime lamoTRIgine (LaMICtal) 25 MG tablet Indications: Anxiety and depression (CMS/HCC) Take 2 tablets (50 mg) by mouth at bedtime 60 tablet 5 10/12/2023 Active Start: 06-17-2023 take 1 tablet by tamar th twice daily lamotrigine 25 mg Tab 25 mg = 1 tab(s), Oral, BID, # 60 tab(s), Refills(s) 0 Start Date: 06/17/23 Status: Ordered Multiple Vitamin (Multivitamin) tablet (11 sources) Start: 10-04-2024 End: 11-03-2024 take 1 [...] Discontinued Start: 05-09-2024 take 1 tablet by tamar th once daily Multiple Vitamin (Multivitamin) tablet Take 1 tablet by mouth Daily 05/09/2024 Active ondansetron 4 mg disintegrating oral tablet (14 sources) Serotonin-3 Receptor Antagonist Start: 12-21-2023 take 1 tablet by mouth every eight hours as needed for nausea and vomiting ondansetron ODT (Zofran-ODT) 4 MG disintegrating tablet Take 4 mg by mouth every 8 (eight) hours if needed for nausea or vomiting 12/21/2023 Active pantoprazole 40 mg delayed release oral tablet (18 sources) Proton Pump Inhibitor Start: 07-06-2024 End: 01-02-2025 take 1 tablet by mouth before mealtime pantoprazole (ProtoNix) 40 MG EC tablet Indications: Gastroesophageal reflux disease without esophagitis Take 1 tablet (40 mg) by mouth in the morning. Take before meals. Do not crush, chew, or split.. 30 tablet 5 12/03/2024 01/02/2025 Active pioglitazone 15 mg oral tablet (20 sources) Peroxisome Proliferator Receptor alpha Agonist, Peroxisome Proliferator Receptor gamma Agonist, Thiazolidinedione Start: 10-15-2024 End: 01-02-2025 take 1 tablet by mouth once daily pioglitazone (Actos) 15 MG tablet Indications: Type 2 diabetes mellitus without complication, without long-term current use of insulin (CMS/HCC) Take 1 tablet (15 mg) by mouth Daily 30 tablet 5 12/03/2024 01/02/2025 Active Start: 05-23-2024 End: 08-23-2024 take 1 tablet [...] Refills(s) 0 Start Date: 06/17/23 Status: Ordered potassium chloride 10 meq extended release oral tablet (20 sources) Start: 12-03-2024 End: 01-02-2025 take 1 tablet by mouth once daily in the morning potassium chloride CR (Klor-Con) 10 MEQ ER tablet Indications: Edema of both lower extremities Take 1 tablet (10 mEq) by mouth Daily Take 10 mEq by mouth in the morning. 30 tablet 5 12/03/2024 01/02/2025 Active Start: 06-17-2023 Potassium Chlo ride (Ebl-Gwvy-Wbv 10) 10 mEq oral tablet, extended release Refills(s) 0 Start Date: 06/17/23 Status: Ordered pramipexole dihydrochloride 0.5 mg oral tablet (20 sources) Nonergot Dopamine Agonist Start: 10-15-2024 End: 01-02-2025 take 1 tablet by mouth at bedtime pramipexole (Mirapex) 0.5 MG tablet Indications: Restless leg syndrome Take 1 tablet (0.5 mg) by mouth at bedtime 30 tablet 5 12/03/2024 01/02/2025 Active Start: 06-17-2023 End: 08-23-2024 take 1 tablet [...] 12 TABLETS BY MOUTH EVERY 12 HOURS 06/09/2023 Active traZODone hydrochloride 50 mg oral tablet (10 sources) Serotonin Reuptake Inhibitor Start: 06-17-2023 take 1 tablet by mouth once daily at bedtime traZODONE 50 mg Tab 50 mg = 1 tab(s), Oral, Once a day (at bedtime), # 30 tab(s), Refills(s) 0 Start Date: 06/17/23 Status: Ordered triamcinolone acetonide 1 mg/ml topical cream (2 sources) Corticosteroid Start: 10-29-2024 End: 11-12-2024 triamcinolone (Kenalog) 0.1 % cream Indications: Rash Apply topically 2 (two) times a day for 14 days 60 g 10/29/2024 11/12/2024 Active Ventolin HFA 90 mcg/inh Aerosol-Adpt (10 sources) [...] q8hr, # 12 tab(s), Refills(s) 0, Pharmacy: [facility] 1155, 175, cm, 09/25/23 18:25:00 EST, Height/Length Dosing, 121, kg, 09/25/23 18:25:00 EST, Weight Dosing Start Date: 09/25/23 Status: Ordered Completed/Discontinued Medications Medication Drug Class(es) Dates Sig (Normalized) Sig (Original) hyoscyamine sulfate 0.125 mg sublingual tablet (10 sources) Start: 12-21-2023 End: 10-29-2024 take 1 tablet by mouth every six hours as needed hyoscyamine (Levsin) 0.125 MG SL tablet Take 0.125 mg by mouth every 6 (six) hours if needed for cramping 12/21/2023 10/29/2024 Discontinued (Therapy completed) Insulin Lispro (1 source) Insulin Analog Start: [...] Active Problems Problem Classification Problem Date Documented Da te Episodic/Chronic Anxiety disorders (20 sources) Generalized anxiety disorder; Translations: [Mixed anxiety and depressive disorder] Onset: 2 12-05-2023 Chronic Biliary tract disease (1 source) Cholelithiasis without obstruction; Translations: [Calculus of gallbladder without cholecystitis without obstruction] Onset: 3 Episodic Cardiac and circulatory congenital anomalies (2 sources) Malformation of coronary vessels; Translations: [Malformation of coronary vessels] Onset: 3 Chronic Cardiac dysrhythmias (1 source) Tachyarrhythmia ; Translations: [Tachycardia, unspecified] Onset: 3 Episodic Chronic obstructive pulmonary disease and bronchiectasis (20 sources) Chronic obstructive pulmonary disease with (acute) exacerbation; Translations: [Chronic obstructive pulmonary disease, unspecified] Onset: 3 Chronic Deficiency and other anemia (11 sources) Iron deficiency anemia; Translations: [Iron deficiency anemia, unspecified] Onset: 4 Episodic Diabetes mellitus with complications (4 sources) Type 2 diabetes mellitus with other specified complication; Translations: [TYPE 2 DM W/OTHER SPEC COMPLICATION] Onset: 3 Chronic Diabetes mellitus without complication (20 sources) Type 2 diabetes mellitus without complication; Translations: [Type 2 diabetes mellitus without complications] Onset: 3 Chronic Disorders of lipid metabolism (20 sources) Mixed hyperlipidemia; Translations: [Hyperlipidemia, unspecified] Onset: 2 10-12-2023 Chronic Esophageal disorders (18 sources) Gastroesophageal reflux disease without esophagitis; Translations: [Gastro-esophageal reflux disease without esophagitis] Onset: 4 05-23-2024 Chronic Essential hypertension (20 sources) Essential (primary) hypertension; Translations: [Essential hypertension] Onset: 3 Chronic Mood disorders (1 source) Depressive disorder; Translations: [Depression, unspecified] Onset: 3 Chronic Nausea and vomiting (6 sources) Nausea and vomiting; Translations: [Nausea with vomiting, unspecified] Onset: 3 Episodic Noninfectious gastroenteritis (8 sources) Gastroenteritis; Translations: [Noninfective gastroenteritis and colitis, unspecified] Onset: 4 10-29-2024 Episodic Nonspecific chest pain (2 sources) Chest pain; Translations: [Chest pain, unspecified] Onset: 3 Episodic Osteoarthritis (18 sources) Arthritis; Translations: [Unspecified osteoarthritis, unspecified site] Onset: 4 12-05-2023 Chronic Other aftercare (1 source) salvage determiner (current) use of aspirin; Translations: [COMPUTER GRAPHIC DESIGNER CURRENT USE OF ASPIRIN] Onset: 3 Episodic Other aftercare (1 source) Other adjunct faculty for medical terminology (current) drug therapy; Translations: [OTH CUSTODIAL CURRENT DRUG THERAPY] Onset: 3 Episodic Other aftercare (1 source) Long-term current use of drug therapy; Translations: [Other penitentiary (current) drug therapy] Onset: 3 Episodic Other gastrointestinal disorders (5 sources) Diarrhea; Translations: [Diarrhea, unspecified] Onset: 5 12-03-2024 Episodic Other hereditary and degenerative nervous system conditions (1 source) Restless legs syndrome; Translations: [RESTLESS LEGS SYNDROME] Onset: 3 Chronic Other hereditary and degenerative nervous system conditions (20 sources) Restless legs; Translations: [Restless legs syndrome] Onset: 3 12-05-2023 Chronic Other lower respiratory disease (4 sources) Shortness of breath; Translations: [SHORTNESS OF BREATH] Onset: 3 Episodic Other nutritional; endocrine; and metabolic disorders (1 source) Obesity, unspecified; Translations: [OBESITY UNSPECIFIED] Onset: 2 Chronic Other nutritional; endocrine; and metabolic disorders (1 source) Body mass index (BMI) 40.0-44.9, adult; Translations: [BODY MASS INDEX BMI 40.0-44.9 ADULT] Onset: 2 Chronic Other nutritional; endocrine; and metabolic disorders (1 source) Obesity; Translations: [Obesity, unspecified] Onset: 3 Chronic Other nutritional; endocrine; and metabolic disorders (19 sources) Body mass index 30+ - obesity; Translations: [Body mass index (BMI) 37.0-37.9, adult] Onset: 4 12-05-2023 Chronic Other nutritional; endocrine; and metabolic disorders (20 sources) Severe obesity; Translations: [Morbid (severe) obesity due to excess calories] Onset: 3 10-19-2023 Chronic Other nutritional; endocrine; and metabolic disorders (5 sources) Unintentional weight loss; Translations: [Abnormal weight loss] Onset: 5 12-03-2024 Episodic Other skin disorders (12 sources) Eruption; Translations: [Rash and other nonspecific skin eruption] Onset: 4 10-29-2024 Episodic Peripheral and visceral atherosclerosis (15 sources) Atherosclerosis of aorta; Translations: [Atherosclerosis of aorta] Onset: 4 08-03-2024 Chronic Residual codes; unclassified (20 sources) Insomnia; Translations: [Other insomnia] Onset: 3 12-05-2023 Chronic Residual codes; unclassified (20 sources) Obstructive sleep apnea syndrome; Translations: [Obstructive sleep apnea (adult) (pediatric)] Onset: 3 12-05-2023 Chronic Respiratory failure; insufficiency; arrest (adult) (19 sources) Dependence on supplemental oxygen; Translations: [Chronic respiratory failure with hypoxia] Onset: 3 Chronic Screening and history of mental health and substance abuse codes (5 sources) Personal history of nicotine dependence; Translations: [PERSONAL HISTORY OF NICOTINE DEPEND] Onset: 2 Episodic Substance-related disorders (20 sources) Nicotine dependence, cigarettes, uncomplicated; Translations: [Nicotine dependence] Onset: 3 Chronic Comment on above: Added secondary to d ocumentation in Social History. Past or Other Problems Problem Classification Problem Date Documented Da te Episodic/Chronic Abdominal pain (19 sources) Epigastric pain; Translations: [Unspecified abdominal pain] Onset: 03-26-2022 Resolved: 07-24-2024 Episodic Malaise and fatigue (14 sources) Fatigue; Translations: [Other fatigue] Onset: 05-23-2024 05-23-2024 Episodic Nonmalignant breast conditions (14 sources) Mastodynia; Translations: [Mastodynia] Onset: 02-21-2024 Resolved: 07-24-2024 07-24-2024 Episodic Nutritional deficiencies (14 sources) Vitamin deficiency; Translations: [Vitamin deficiency, unspecified] Onset: 04-10-2024 04-10-2024 Episodic Other aftercare (4 sources) Encounter for therapeutic drug level monitoring; Translations: [ENC THERAPEUTC DRUG LEVL MONITORING] Onset: 11-04-2022 Episodic Other bone disease and musculoskeletal deformities (15 sources) Postmenopausal osteopenia; Translations: [Other specified disorders of bone density and structure, unspecified site] Onset: 03-08-2024 03-08-2024 Episodic Other lower respiratory disease (17 sources) Dyspnea on exertion; Translations: [Other forms of dyspnea] Onset: 12-24-2022 12-05-2023 Episodic Other nutritional; endocrine; and metabolic disorders (16 sources) Obesity caused by energy imbalance; Translations: [Morbid (severe) obesity due to excess calories] Onset: 05-23-2024 Resolved: 12-03-2024 07-24-2024 Chronic Other screening for suspected conditions (not mental disorders or infectious disease) (18 sources) Encounter for screening mammogram for malignant neoplasm of breast; Translations: [Patient encounter status] Onset: 04-30-2022 Episodic Other upper respiratory infections (14 sources) Acute maxillary sinusitis; Translations: [Acute maxillary sinusitis, unspecified] Onset: 01-10-2024 Resolved: 07-24-2024 07-24-2024 Episodic Pulmonary heart disease (20 sources) Other pulmonary embolism without acute cor pulmonale; Translations: [Pulmonary embolism] Onset: 06-16-2023 Episodic Residual codes; unclassified (2 sources) Edema, unspecified; Translations: [Edema, unspecified] Onset: 12-24-2022 Episodic Residual codes; unclassified (20 sources) Bilateral lower limb edema; Translations: [Localized edema] Onset: 12-24-2022 12-05-2023 Episodic Results Test Name Value Interpretation Reference Range Facility HbA1c (Bld) [Mass fraction]o n 10-29-2024 Interpretation and review of laboratory results Normal [facility] Laboratory - Hematology and Cell countson 10-29-2024 HbA1c (Bld) [Mass fraction] 7.7 % [facility] CBC w/ Auto Diffon Basophils/100 WBC (Bld) 0.6 % Normal 0.0-2.0 [facility] Comment on above: Performed By: #### 2 790212 #### [facility] [address] [place] [address] Basophils/Leukocytes Auto (Bld) [Pure # fraction] 0.0 E9/L Normal 0.0-0.2 [facility] Comment on above: Performed By: #### 2 250055 #### [facility] [address] [place] [address] Eosinophils (Bld) [#/Vol] 0.2 E9/L Normal 0.0-0.5 [facility] Comment on above: Performed By: #### 2 434719 #### [facility] [address] [place] [address] Eosinophils/100 WBC (Bld) 2.4 % Normal 0.0-8.0 [facility] Comment on above: Performed By: #### 2 329087 #### [facility] [address] [place] [address] Erythrocyte distribution width (RBC) [Ratio] 15.3 % High 10.9-14.2 [facility] Comment on above: Performed By: #### 2 034476 #### [facility] [address] [place] [address] Hematocrit (Bld) [Volume fraction] 42.4 % Normal 34.0-46.0 [facility] Comment on above: Performed By: #### 2 129676 #### [facility] [address] [place] [address] Hemoglobin (Bld) [Mass/Vol] 14.4 g/dL Normal 12.0-16.0 [facility] Comment on above: Performed By: #### 2 783203 #### [facility] [address] [place] [address] Lymphocytes (Bld) [#/Vol] 1.6 E9/L Normal 1.0-4.0 [facility] Comment on above: Performed By: #### 2 360175 #### [facility] [address] [place] [address] Lymphocytes/100 WBC (Bld) 20.2 % Normal 14.0-50.0 [facility] Comment on above: Performed By: #### 2 910165 #### [facility] [address] [place] [address] MCH (RBC) [Entitic mass] 30.3 pg Normal 27.0-34.0 [facility] Comment on above: Performed By: #### 2 326245 #### [facility] [address] [place] [address] MCHC (RBC) [Mass/Vol] 34.0 g/dL Normal 31.4-36.0 [facility] Comment on above: Performed By: #### 2 936999 #### [facility] [address] [place] [address] MCV (RBC) [Entitic vol] 89.1 fL Normal 80.0-100.0 [facility] Comment on above: Performed By: #### 2 639747 #### [facility] [address] [place] [address] Monocytes (Bld) [#/Vol] 0.5 E9/L Normal 0.2-1.0 [facility] Comment on above: Performed By: #### 2 714582 #### [facility] [address] [place] [address] Neutrophils (Bld) [#/Vol] 5.4 E9/L Normal 2.0-7.5 [facility] Comment on above: Performed By: #### 2 340851 #### [facility] [address] [place] [address] Neutrophils/100 WBC (Bld) 69.8 % Normal 36.0-75.0 [facility] Comment on above: Performed By: #### 2 149561 #### [facility] [address] [place] [address] Platelet mean volume (Bld) [Entitic vol] 10.8 fL Normal 6.4-10.8 [facility] Comment on above: Performed By: #### 2 688686 #### [facility] [address] [place] [address] Platelets (Bld) [#/Vol] 157.0 E9/L Normal 150.0-500.0 [facility] Comment on above: Performed By: #### 2 503402 #### [facility] [address] [place] [address] RBC (Bld) [#/Vol] 4.8 E12/L Normal 4.3-5.9 [facility] Comment on above: Performed By: #### 2 747924 #### [facility] [address] [place] [address] WBC corrected for nucl RBC Auto (Bld) [#/Vol] 7.8 E9/L Normal 4.0-11.0 [facility] Comment on above: Performed By: #### 2 029308 #### [facility] [address] [place] [address] CHEMISTRYOrdered By: SYSTEM SYSTEM on 07-16-2024 Ferritin [...] 07-16-2024 Ferritin [Mass/Vol] 76 ng/mL Normal 11-307 [facility] Comment on above: Performed By: #### 2 684096 #### [facility] [address] [place] [address] HEMATOLOGYOrdered By: SYSTEM SYSTEM on 07-16-2024 Basophils/100 [...] 07-16-2024 Iron [Mass/Vol] 74 microgram/dL Normal 35-153 [facility] Comment on above: Performed By: #### 2 992574 #### [facility] [address] [place] [address] Iron Saturationon 07-16-2024 Iron binding capacity [Mass/Vol] 329 microgram/dL Normal 250-400 [facility] Comment on above: Performed By: #### 2 757226 #### [facility] [address] [place] [address] Iron saturation [Mass fraction] 22 % Normal 20-50 [facility] Comment on above: Performed By: #### 2 434036 #### [facility] [address] [place] [address] Transferrinon 07-16-2024 Transferrin [Mass/Vol] 235 mg/dL Normal 200-370 [facility] Comment on above: Performed By: #### 2 380136 #### [facility] [address] [place] [address] Methylmalonic Acidon 024 Methylmalonate [Moles/Vol] 301 nmol/L Invalid Interpretation Code 0-378 [facility] Comment on above: Result Comment: This test was developed and its performance characteristics determined by [employer]. It has not been cleared or approved by the Food and Drug Administration. Performed at: [address] [id number] MD Tony Laird Performed By: #### 1 9666453, 4777310, 6820135, 6842582, 8802072, 2333312, 1492191 ####[facility] [address] [place] [address] Oncology Progress Noteon Oncology Progress Note Chief Complaint PE Pt states she has had a couple visits to hosp. Poss Gallbladder. Pt just has ques on how blood work results are. Diagnoses 1. History of pulmonary embolism (Z86.711: Personal history of pulmonary embolism) Oncological History/ROS/PE/Assess ment and Plan Aliya was referred to our hematology office [place] [facility] [place] Thrombophilia work up and decision about duration of anticoagulation for the acute PE diagnosed on . She is a 57-year-old female cigarette smoker with history of hypertension, nnf-shgskos-nbyczelxp diabetes mellitus, obesity, chronic hypoxic respiratory failure on 3 L home oxygen, and depression who presented on 06/16/[address] [facility] with complaints of right-sided chest pain [...] cramping a lot. has had colonoscopy at [facility] Physical Examination General: alert, no acute [...] Information Swapna ANGUIANO, Mariama Chen, ONC [facility] [place] [address]- [phone] Additional Instructions: iron studies, b12, folate, mm (more content not included)... Normal [facility] CHEMISTRYOrdered By: SYSTEM SYSTEM on 01-16-2024 [...] Treatmenton 12-29 Consent for Treatment [id number] .00TIFF Normal [facility] Consent for Treatment [id number] 403 [id number] .00TIFF Normal [facility] Ferritinon 01-16-2024 Ferritin [Mass/Vol] 63 ng/mL Normal 11-307 [facility] Comment on above: Performed By: #### 1 4463966, 5972186, 4385724, 8132570, 1742486, 1133575, 8222236 ####[facility] [address] [place] [address] Folateon 01-16-2024 Folate [Mass/Vol] 15.3 ng/mL Normal >=6.7 [facility] Comment on above: Performed By: #### 1 9501802, 6616058, 3814476, 3420336, 9993414, 7066768, 0708004 ####[facility] [address] [place] [address] Ironon 01-16-2024 Iron [Mass/Vol] 63 microgram/dL Normal 35-153 [facility] Comment on above: Performed By: #### 1 5144491, 2487126, 6302051, 2868297, 5081942, 8345603, 6377637 ####[place] [place] [address] Iron Saturationon 01-16-2024 Iron binding capacity [Mass/Vol] 365 microgram/dL Normal 250-400 [facility] Comment on above: Performed By: #### 1 8657164, 4648582, 9584499, 8874483, 8125187, 7322965, 6059285 ####[address] [address] Iron saturation [Mass fraction] 17 % Low 20-50 [facility] Comment on above: Performed By: #### 1 4987054, 2620490, 4550957, 2414180, 1556189, 3786162, 4453226 ####[address] [address] Transferrinon 01-16-2024 Transferrin [Mass/Vol] 261 mg/dL Normal 200-370 [facility] Comment on above: Performed By: #### 1 4916483, 5276818, 0824043, 7305659, 7982295, 7884430, 6486147 ####[address] [address] Vit B12on 01-16-2024 Cobalamin (Vitamin B12) [Mass/Vol] 420 pg/mL Normal 50-1500 [facility] Comment on above: Performed By: #### 1 2676359, 2610822, 4701628, 2830803, 3226960, 9412909, 2171975 ####[facility] [address] [place] [address] CBC w/ Auto Diffon 4 Basophils/100 WBC (Bld) 0.6 % Normal 0.0-2.0 [facility] Comment on above: Performed By: #### 1 3930378, 5432113, 6316948, 4845168 ####[facility] [address] [place] [address] Basophils/Leukocytes Auto (Bld) [Pure # fraction] 0.0 E9/L Normal 0.0-0.2 [facility] Comment on above: Performed By: #### 1 4207374, 7978459, 1775779, 5288363 ####[address] [address] Eosinophils (Bld) [#/Vol] 0.2 E9/L Normal 0.0-0.5 [facility] Comment on above: Performed By: #### 1 8166487, 0865853, 9331848, 4567417 ####[address] [address] Eosinophils/100 WBC (Bld) 3.0 % Normal 0.0-8.0 [facility] Comment on above: Performed By: #### 1 3682293, 4126201, 7472826, 2739065 ####[address] [address] Erythrocyte distribution width (RBC) [Ratio] 15.7 % High 10.9-14.2 [facility] Comment on above: Performed By: #### 1 2522524, 5745149, 6524820, 6198534 ####[address] [address] Hematocrit (Bld) [Volume fraction] 36.9 % Normal 34.0-46.0 [facility] Comment on above: Performed By: #### 1 7734824, 9210197, 2908778, 1464764 ####[address] [address] Hemoglobin (Bld) [Mass/Vol] 12.4 g/dL Normal 12.0-16.0 [facility] Comment on above: Performed By: #### 1 0462590, 7076229, 8420120, 9802063 ####[address] [address] Lymphocytes (Bld) [#/Vol] 1.4 E9/L Normal 1.0-4.0 [facility] Comment on above: Performed By: #### 1 2104325, 4327431, 9912646, 1449784 ####[place] [address] Lymphocytes/100 WBC (Bld) 20.7 % Normal 14.0-50.0 [facility] Comment on above: Performed By: #### 1 2962785, 9236410, 1861089, 0114617 ####[place] [address] MCH (RBC) [Entitic mass] 29.5 pg Normal 27.0-34.0 [facility] Comment on above: Performed By: #### 1 3534366, 5838598, 5938575, 5407509 ####[place] [address] MCHC (RBC) [Mass/Vol] 33.6 g/dL Normal 31.4-36.0 [facility] Comment on above: Performed By: #### 1 9467499, 4280289, 0344101, 7626099 ####[place] [address] MCV (RBC) [Entitic vol] 87.9 fL Normal 80.0-100.0 [facility] Comment on above: Performed By: #### 1 6080710, 5513534, 6133113, 2677550 ####[place] [address] Monocytes (Bld) [#/Vol] 0.6 E9/L Normal 0.2-1.0 [facility] Comment on above: Performed By: #### 1 2878306, 5119362, 0350252, 5194417 ####[place] [address] Neutrophils (Bld) [#/Vol] 4.5 E9/L Normal 2.0-7.5 [facility] Comment on above: Performed By: #### 1 8415286, 6359208, 7483306, 7336538 ####[address] [place] [address] Neutrophils/100 WBC (Bld) 66.7 % Normal 36.0-75.0 [facility] Comment on above: Performed By: #### 1 4827489, 0280565, 2451622, 3719096 ####[address] [address] Platelet mean volume (Bld) [Entitic vol] 10.3 fL Normal 6.4-10.8 [facility] Comment on above: Performed By: #### 1 2493194, 0303534, 6716473, 8769293 ####[address] [address] Platelets (Bld) [#/Vol] 196.0 E9/L Normal 150.0-500.0 [facility] Comment on above: Performed By: #### 1 7626423, 0337774, 7790282, 4380662 ####[address] [address] RBC (Bld) [#/Vol] 4.2 E12/L Low 4.3-5.9 [facility] Comment on above: Performed By: #### 1 0290640, 6042150, 0425889, 4994202 ####[address] [address] WBC corrected for nucl RBC Auto (Bld) [#/Vol] 6.8 E9/L Normal 4.0-11.0 [facility] Comment on above: Performed By: #### 1 1310861, 9981639, 6743093, 4598973 ####[address] [address] CHEMISTRYOrdered By: SYSTEM SYSTEM on 01-09-2024 Albumin [...] 01-09-2024 Albumin [Mass/Vol] 4.1 g/dL Normal 3.3-5.0 [facility] Comment on above: Performed By: #### 1 7588976, 5604237, 6654845, 4519273 ####[facility] [address] [place] [address] Albumin/Globulin (S) [Mass conc ratio] 1.2 Normal 1.1-2.2 [facility] Comment on above: Performed By: #### 1 7934341, 6775343, 3979051, 8967931 ####[facility] [address] [place] [address] ALP [Catalytic activity/Vol] 61 Int._Unit/L Normal 21-98 [facility] Comment on above: Performed By: #### 1 0524794, 1573773, 2572373, 7871476 ####[facility] [address] [place] [address] ALT No additional P-5'-P [Catalytic activity/Vol] 17 Int._Unit/L Normal 6-46 [facility] Comment on above: Performed By: #### 1 9458713, 5744290, 6616252, 6555084 ####[address] [address] Anion gap [Moles/Vol] 12 mmol/L Normal 6-16 [facility] Comment on above: Performed By: #### 1 4781749, 9224546, 8969078, 5359683 ####[address] [address] AST [Catalytic activity/Vol] 18 Int._Unit/L Normal 5-43 [facility] Comment on above: Performed By: #### 1 2352384, 9746949, 4153515, 1865819 ####[address] [place] [address] Bilirubin [Mass/Vol] 0.4 mg/dL Normal 0.0-1.1 [facility] Comment on above: Performed By: #### 1 3679333, 9657510, 3367821, 3229064 ####[address] [place] [address] Calcium [Mass/Vol] 9.8 mg/dL Normal 8.9-11.1 [facility] Comment on above: Performed By: #### 1 4900697, 4444440, 5030960, 5188889 ####[facility] [address] [place] [address] Chloride [Moles/Vol] 101 mmol/L Normal 101-111 [facility] Comment on above: Performed By: #### 1 8644164, 0622667, 1996916, 8500416 ####[facility] [address] [place] [address] CO2 [Moles/Vol] 28 mmol/L Normal 21-31 [facility] Comment on above: Performed By: #### 1 7847044, 0939047, 2133622, 1993308 ####[facility] [address] [place] [address] Creatinine [Mass/Vol] 1.0 mg/dL Normal 0.5-1.3 [facility] Comment on above: Performed By: #### 1 0739027, 3712970, 6804125, 2389867 ####[facility] [address] [place] [address] Globulin (S) [Mass/Vol] 3.4 g/dL Normal 1.4-4.0 [facility] Comment on above: Performed By: #### 1 0192192, 5767728, 5043553, 3082999 ####[facility] [address] [place] [address] Glucose [Mass/Vol] 98 mg/dL Normal 55-199 [facility] Comment on above: Performed By: #### 1 7279607, 8880644, 8201287, 3377309 ####[facility] [address] [place] [address] Potassium [Moles/Vol] 4.3 mmol/L Normal 3.5-5.3 [facility] Comment on above: Performed By: #### 1 8110106, 9167532, 6244222, 9755156 ####[facility] [address] [place] [address] Protein [Mass/Vol] 7.5 g/dL Normal 6.0-7.8 [facility] Comment on above: Performed By: #### 1 5923421, 4667473, 2131701, 6172660 ####[facility] [address] [place] [address] Sodium [Moles/Vol] 137 mmol/L Normal 135-145 [facility] Comment on above: Performed By: #### 1 6869956, 5838351, 8329547, 2780105 ####[facility] [address] [place] [address] Urea nitrogen [Mass/Vol] 21 mg/dL Normal 5-21 [facility] Comment on above: Performed By: #### 1 4768016, 1080506, 9827015, 9505904 ####[facility] [address] [place] [address] Urea nitrogen/Creatinine [Mass ratio] 21 No Units High 10-20 [facility] Comment on above: Performed By: #### 1 2193667, 2416869, 9098016, 9684783 ####[facility] [address] [place] [address] COAGULATIONOrdered By: Catina Miles on 01-09-2024 Fibrin D-dimer FEU (PPP) [Mass/Vol] 404 ng/mL FEU Normal 215 - 500 ng/mL FEU [facility] Comment on above: Interpretive Data: [...] Treatmenton 12-29 Consent for Treatment [id number]#1 .00TIFF Normal [facility] D-Dimeron 01-09-2024 Fibrin D-dimer FEU (PPP) [Mass/Vol] 404 [id number] Normal 215-500 [facility] Comment on above: Result Comment: This [...] infections Liver cirrhosis Performed By: #### 1 9499707, 7323584, 7305862, 0427441 ####[facility] [address] [place] [address] HEMATOLOGYOrdered By: SYSTEM SYSTEM on 01-09-2024 Basophils/100 [...] 01-09-2024 eGFR 65 mL/min/1.73 m2 Normal >=59 [facility] Comment on above: Order Comment: Order added by Discern Expert. Performed By: #### 1 7863563, 5692947, 5254170, 6844088 ####[facility] [address] [place] [address] CT Abdomen/Pelvis w/ Contras ton 11-24-2023 CT [...] Vincenzo Colvin DO Transcribed by: NOHEMY Technologist: SRF Report IMPRESSION: NO ACUTE ABDOMINOPELVIC PROCESS. CHOLELITHIASIS. [...] 14:25 EST by Vincenzo Colvin DO Normal [facility] Auto Diffon 09-25-2023 Basophils/100 WBC (Bld) 0.6 % Normal 0.0-2.0 [facility] Comment on above: Order Comment: Order Added by [place] Expert. Performed By: #### 2 801082, 0050273, 0534286, 4794043, 03379078, 3241900 ####[facility] [address] [place] [address] Basophils/Leukocytes Auto (Bld) [Pure # fraction] 0.1 E9/L Normal 0.0-0.2 [facility] Comment on above: Order Comment: Order Added by Discern Expert. Performed By: #### 2 680094, 3346174, 7405713, 0248845, 15849117, 6346556 ####[facility] [address] [place] [address] Eosinophils/100 WBC (Bld) 1.5 % Normal 0.0-8.0 [facility] Comment on above: Order Comment: Order Added by Discern Expert. Performed By: #### 2 262497, 1068451, 3403877, 1104917, 34456700, 8561877 ####[address] [address] Eosinophils/Leukocytes Auto (Bld) [Pure # fraction] 0.1 E9/L Normal 0.0-0.5 [facility] Comment on above: Order Comment: Order Added by Discern Expert. Performed By: #### 2 503192, 4145337, 6144997, 6586599, 90169028, 8441817 ####[address] [address] Lymphocytes/100 WBC (Bld) 15.3 % Normal 14.0-50.0 [facility] Comment on above: Order Comment: Order Added by Discern Expert. Performed By: #### 2 513240, 8122646, 5084074, 1108838, 14214953, 0534531 ####[address] [address] Lymphocytes/Leukocytes Auto (Bld) [Pure # fraction] 1.5 E9/L Normal 1.0-4.0 [facility] Comment on above: Order Comment: Order Added by Discern Expert. Performed By: #### 2 755647, 6703130, 7697931, 7590790, 79054382, 8514797 ####[address] [address] Monocytes/100 WBC (Bld) 7.4 % Normal 4.0-14.0 [facility] Comment on above: Order Comment: Order Added by Discern Expert. Performed By: #### 2 096744, 3547294, 2163652, 0729796, 06248694, 6223463 ####[address] [address] Monocytes/Leukocytes Auto (Bld) [Pure # fraction] 0.7 E9/L Normal 0.2-1.0 [facility] Comment on above: Order Comment: Order Added by Discern Expert. Performed By: #### 2 210666, 2169244, 4903843, 0833370, 88958896, 2311770 ####[facility] [address] [place] [address] Neutrophils/100 WBC (Bld) 75.2 % High 36.0-75.0 [facility] Comment on above: Order Comment: Order Added by Discern Expert. Performed By: #### 2 121940, 1996631, 1788514, 9574598, 10919694, 6228923 ####[facility] [address] [place] [address] Neutrophils/Leukocytes Auto (Bld) [Pure # fraction] 7.1 E9/L Normal 2.0-7.5 [facility] Comment on above: Order Comment: Order Added by Discern Expert. Performed By: #### 2 979528, 2334632, 0375924, 4333792, 81853177, 3440242 ####[facility] [address] [place] [address] BMPon 09-25-2023 Creatinine [Mass/Vol] 0.9 mg/dL Normal 0.5-1.3 [facility] Comment on above: Performed By: #### 2 087840, 2924258, 3616050, 8855121, 74095927, 6713530 ####[facility] [address] [place] [address] Urea nitrogen [Mass/Vol] 20 mg/dL Normal 5-21 [facility] Comment on above: Performed By: #### 2 678421, 8740791, 4417767, 5548420, 83881235, 9022853 ####[facility] [address] [place] [address] Urea nitrogen/Creatinine [Mass ratio] 22 No Units High 10-20 [facility] Comment on above: Performed By: #### 2 149850, 8121144, 6070055, 3696970, 27255907, 6706788 ####[facility] [address] [place] [address] Anion gap [Moles/Vol] 10 mmol/L Normal 6-16 [facility] Comment on above: Performed By: #### 2 855417, 9886747, 0859029, 5040227, 20586412, 9969124 ####[facility] [address] [place] [address] Calcium [Mass/Vol] 10.4 mg/dL Normal 8.9-11.1 [facility] Comment on above: Performed By: #### 2 618570, 2626458, 8498913, 0166797, 60251396, 1248294 ####[facility] [address] [place] [address] Chloride [Moles/Vol] 101 mmol/L Normal 101-111 [facility] Comment on above: Performed By: #### 2 570755, 0861054, 0048575, 0457972, 96464655, 4230207 ####[facility] [address] [place] [address] CO2 [Moles/Vol] 27 mmol/L Normal 21-31 [facility] Comment on above: Performed By: #### 2 007763, 9591227, 3331816, 9210359, 09200055, 9008289 ####[facility] [address] [place] [address] Glucose [Mass/Vol] 155 mg/dL Normal 55-199 [facility] Comment on above: Result Comment: If t his glucose result represents a fasting glucose, interpretation should refer to the following reference range: 55-99 mg/dL Performed By: #### 2 485034, 4164109, 5612061, 6274747, 56864256, 3136903 ####[facility] [address] [place] [address] Potassium [Moles/Vol] 4.0 mmol/L Normal 3.5-5.3 [facility] Comment on above: Performed By: #### 2 048552, 0128081, 6900340, 5043034, 01476104, 1482429 ####[facility] [address] [place] [address] Sodium [Moles/Vol] 134 mmol/L Low 135-145 [facility] Comment on above: Performed By: #### 2 625579, 4935182, 6096265, 7059131, 85211366, 1592933 ####[facility] [address] [place] [address] CBC w/ Auto Diffon Erythrocyte distribution width (RBC) [Ratio] 15.3 % High 10.9-14.2 [facility] Comment on above: Performed By: #### 2 015905, 3984030, 5197353, 2840237, 60733995, 3610654 ####[address] [address] Hematocrit (Bld) [Volume fraction] 38.4 % Normal 34.0-46.0 [facility] Comment on above: Performed By: #### 2 372246, 8061259, 0643582, 1112088, 33441426, 6433858 ####[address] [address] Hemoglobin (Bld) [Mass/Vol] 13.0 g/dL Normal 12.0-16.0 [facility] Comment on above: Performed By: #### 2 835373, 1781613, 6461188, 9343226, 18546225, 0644560 ####[address] [address] MCH (RBC) [Entitic mass] 29.4 pg Normal 27.0-34.0 [facility] Comment on above: Performed By: #### 2 141010, 6601653, 4658400, 6431256, 74577724, 8218001 ####[address] [address] MCHC (RBC) [Mass/Vol] 33.9 g/dL Normal 31.4-36.0 [facility] Comment on above: Performed By: #### 2 547322, 9651874, 4514182, 0891479, 14965451, 0852656 ####[address] [place] [address] MCV (RBC) [Entitic vol] 86.6 fL Normal 80.0-100.0 [facility] Comment on above: Performed By: #### 2 672919, 3004057, 5612175, 5801012, 68282734, 0636625 ####[address] [address] Platelet mean volume (Bld) [Entitic vol] 9.5 fL Normal 6.4-10.8 [facility] Comment on above: Performed By: #### 2 033281, 5707890, 1309716, 7373279, 87941902, 7009418 ####[address] [address] Platelets (Bld) [#/Vol] 207.0 E9/L Normal 150.0-500.0 [facility] Comment on above: Performed By: #### 2 085624, 6050528, 0143746, 6769669, 01924626, 5687552 ####[address] [address] RBC (Bld) [#/Vol] 4.4 E12/L Normal 4.3-5.9 [facility] Comment on above: Performed By: #### 2 094171, 3146522, 7674356, 6770876, 10830641, 3259936 ####[address] [address] WBC corrected for nucl RBC Auto (Bld) [#/Vol] 9.5 E9/L Normal 4.0-11.0 [facility] Comment on above: Performed By: #### 2 134776, 8641988, 4680370, 7969168, 65304717, 0334364 ####[address] [address] CHEMISTRYOrdered By: SYSTEM SYSTEM on 09-25-2023 Albumin [...] 74 mL/min/1.73 m2 Normal >=59mL/min/1 .73 m2 FT Chem S Comment [...] U/L Normal 13 - 58 unit/L [facility] Remisol Potassium [Moles/Vol] 4.0 mmol/L Normal 3.5 - 5.3 mmol/L FT Remisol Protein [Mass/Vol] 7.9 g/dL High 6.0 - 7.8 gm/dL FT Remisol Sodium [Moles/Vol] 134 mmol/L Low 135 - 145 mmol/L FT Remisol Urea nitrogen [Mass/Vol] 20 mg/dL Normal 5 - 21 mg/dL [facility] Remisol Urea nitrogen/Creatinine [Mass ratio] 22 mg/mg High 10 - 20 FT Remisol Consent for Treatmenton 09-01 Consent for Treatment [id number]#1 .00TIFF Normal [facility] Discharge Instructionson Discharge Instructions [id number]# 1.00TIFF Normal [facility] ED Clinical Summaryon 2022 ED Clinical Summary [place] [id number] ED Clinical Summary Person Information Name: ALIYA MOORE Hilary/[facility] Age: 57 Years : 1965 Sex: Female Language: Serbian PCP: BREA JJ CNP Marital Status: Visit [...] 09/25/2023 21:57:44 09/25/2023 21:57:44 09/25/2023 21:57:44 ADDRESS: [address] [place] [address] [address] [facility] [id number] PHYS DOC NOTES: MEDICAL INFORMATION: Prescriptions Given: [facility], [address] [place], [place] [id number], [phone] dicyclomine (Bentyl 10 mg Cap) 1 Capsules [...] day. fluticasone nasal (fluticasone Nasal 0.05 mg/inh [place]) 2 Sprays Nasal Inhalation every day. each [...] Mouth every day. potassium chloride (Potassium Chloride (Bin-Qzto-Vyk 10) 10 mEq oral tablet, extended release) pramipexole (pramipexole 0.5 mg oral tablet) 1 Tablets By Mouth 3 times a day. theophylline (theophylline 300 mg ER Tab) 1 Tablets By Mouth every 12 hours. trazodone (traZODONE 50 mg Tab) 1 Tablets By Mouth once a day (at bedtime). PATIENT EDUCATION INFORMATION: Instructions: Cholelithiasis Follow up: With: Address: When: [facility] [address] [place] [address] 3, 2nd Floor, [address] [place] [phone] Business (1) In 3 days 09/28/2023 With: Address: When: BREA JJ [address] [place], [place] [phone] Business (1) In 3 days DIAGNOSIS: AP (abdominal pain); Cholelithiasis; N&V (nausea and vomiting) Normal [facility] ED Note-Physicianon 09-25-20 ED Note-Physician Basic [...] Complexity of Problems Differential Diagnosis: [] [facility] Data External documents reviewed: N/A My EKG [...] In 3 days 09/28/2023 EST [address] [facility] 3, 2nd Floor, [address] [place] [phone] Business (1) Additional Instructions: BREA АННА In [address] days [address] [place] [address] [phone] Business (1) Additional Instructions: Patient Education Cholelithiasis Problem List/Past Medical History Ongoing Smoker Historical No qualifying data Procedure/Surgical History delivery (05/05/1987), delivery (06/20/1984), Cyst, Knee. Medications Inpatient morphine 4 mg/mL Inj, 4 mg= 1 mL, IV Push, Once Zofran 4 mg/2 mL Injection, 4 mg= 2 mL, IV Push, Once Home albuterol- (more content not included)... Normal [facility] Comment on above: Result Comment: Elec [...] to break (more content not included)... Normal [facility] ED Patient Summaryon 023 ED Patient Summary [place] [id number] Patient Discharge Instructions Person Information Name: ALIYA MOORE Age: 57 Years Arrival Date: 09/25/2023 18:09:44 Discharge Diagnosis: AP (abdominal pain); Cholelithiasis; N&V (nausea and vomiting) Primary Care Physician: BREA JJ CNP Provider Information Primary Provider: Moses Fischer DO Advanced Supervisor Publications:None The exam and treatment you received in the Emergency Department were for an urgent problem and are not intended as complete care. It is important that you follow up with a doctor, nurse practitioner, or physician?s assignment desk assistant for ongoing care. If your symptoms [...] With: Address: [facility] [address] [facility] [address], [address] [place] [address] [phone] Business (1) In 3 days 09/28/2023 With: Address: When: BREA JJ [address] [place], [place] [phone] Business (1) In 3 days In the event that this physician does not participate in your insurance network, please consult with your insurance company to find a nearby participating provider. Patient Education Materials: Cholelithiasis A MESSAGE TO ALL PATIENTS REGARDING OPIOIDS PRESCRIPTION OPIOIDS: WHAT YOU NEED TO KNOW Prescription opioids can be used to help relieve belcybak-yh-rnqjhb pain and are often prescribed following a [...] and overdos (more content not included)... Normal [facility] HEMATOLOGYOrdered By: SYSTEM SYSTEM on 09-25-2023 Basophils/100 WBC (Bld) 0.6 % Normal 0.0 - 2.0 % [facility] HemeAutoSS Basophils/Leukocytes Auto (Bld) [Pure # fraction] 0.1 E9/L Normal 0.0 - 0.2 E9/L [facility] HemeAutoSS Eosinophils/100 WBC (Bld) 1.5 % Normal 0.0 - 8.0 % FT HemeAutoSS Eosinophils/Leukocytes Auto (Bld) [Pure # fraction] [...] 09-25-2023 Albumin [Mass/Vol] 3.9 g/dL Normal 3.3-5.0 [facility] Comment on above: Performed By: #### 2 860757, 1973295, 5605734, 9657873, 26154155, 7622739 ####[facility] [address] [place] [address] Albumin/Globulin (S) [Mass conc ratio] 1.0 Low 1.1-2.2 [facility] Comment on above: Performed By: #### 2 417469, 8914526, 8737383, 5494268, 45281133, 5854143 ####[address] [address] ALP [Catalytic activity/Vol] 66 Int._Unit/L Normal 21-98 [facility] Comment on above: Performed By: #### 2 067311, 3729349, 8069842, 3237159, 59256361, 0766326 ####[address] [address] ALT No additional P-5'-P [Catalytic activity/Vol] 25 Int._Unit/L Normal 6-46 [facility] Comment on above: Performed By: #### 2 635348, 5520152, 4902734, 3012353, 46770482, 4096183 ####[facility] [address] [place] [address] AST [Catalytic activity/Vol] 25 Int._Unit/L Normal 5-43 [facility] Comment on above: Performed By: #### 2 551650, 3187263, 0086406, 9690557, 60873812, 9233774 ####[facility] [address] [place] [address] Bilirubin [Mass/Vol] 0.2 mg/dL Normal 0.0-1.1 [facility] Comment on above: Performed By: #### 2 275728, 3371477, 3444744, 9724549, 69692639, 0363850 ####[facility] [address] [place] [address] Bilirubin.direct [Mass/Vol] 0.1 mg/dL Normal 0.1-0.4 [facility] Comment on above: Performed By: #### 2 442112, 5937062, 3535229, 8650732, 69891940, 7258445 ####[facility] [address] [place] [address] Bilirubin.indirect [Mass or moles/Vol] 0.1 mg/dL Normal 0.1-0.9 [facility] Comment on above: Performed By: #### 2 524372, 5497887, 8314797, 4011774, 39863566, 8789149 ####[place] [address] [place] [address] Globulin (S) [Mass/Vol] 4.0 g/dL Normal 1.4-4.0 [facility] Comment on above: Performed By: #### 2 207856, 9136068, 8230259, 1785516, 54480193, 9585166 ####[address] [address] Protein [Mass/Vol] 7.9 g/dL High 6.0-7.8 [facility] Comment on above: Performed By: #### 2 480959, 6290512, 8013084, 2573763, 07252034, 4686564 ####[address] [address] Lipase Levelon 09-25-2023 Lipase [Catalytic activity/Vol] 39 U/L Normal 13-58 [facility] Comment on above: Performed By: #### 2 886900, 8629639, 6851017, 5374025, 17408120, 7607326 ####[facility] [address] [place] [address] Monitor Recordon 09-25-2023 Monitor Record [id number]# 1.00TIFF Normal [facility] RAD - Preliminary Cat Scan R eporton 09-25-2023 RAD - Preliminary Cat Scan Report [id number]# 1.00TIFF Normal [facility] UA With Cult Reflexon 2022 Bilirubin Ql (U) Negative Normal Negative [facility] Comment on above: Performed By: #### 1 8460796 ####[facility] [address] [place] [address] Clarity (U) CLEAR Normal Clear [facility] Comment on above: Performed By: #### 1 0623877 ####[facility] [address] [place] [address] Color (U) YELLOW Normal Yellow [facility] Comment on above: Performed By: #### 1 4654671 ####[address] [address] Epithelial cells.squamous LM.HPF (Urine sed) [#/Area] 0-2 Normal 0-2 [facility] Comment on above: Performed By: #### 1 4295464 ####[facility] [address] [place] [address] Glucose Test strip (U) [Mass/Vol] Negative Normal Negative [facility] Comment on above: Performed By: #### 1 3100145 ####[facility] [address] [place] [address] Hemoglobin Ql (U) Negative Normal Negative [facility] Comment on above: Performed By: #### 1 7789526 ####[facility] [address] [place] [address] Ketones (U) [Mass/Vol] Negative Normal Negative [facility] Comment on above: Performed By: #### 1 8427205 ####[facility] [address] [place] [address] [place].plasma/[place] .RBC (Bld) [Mass ratio] 0-3 Normal 0-3 [facility] Comment on above: Performed By: #### 1 7012502 ####[facility] [address] [place] [address] Nitrite Ql (U) Negative Normal Negative [facility] Comment on above: Performed By: #### 1 4647240 ####[facility] [address] [place] [address] pH (U) 6.5 [pH] Invalid Interpretation Code 5.0-9.0 [facility] Comment on above: Performed By: #### 1 8077842 ####[facility] [address] [place] [address] Protein (U) [Mass/Vol] Negative Normal Negative [facility] Comment on above: Performed By: #### 1 2762469 ####[facility] [address] [place] [address] Specific gravity (U) [Rel density] <=1.005 Invalid Interpretation Code 1.005-1.030 [facility] Comment on above: Performed By: #### 1 1115767 ####[facility] [address] [place] [address] Type of Urine collection method Clean Catch Normal [facility] Comment on above: Performed By: #### 1 8367684 ####[facility] [address] [place] [address] Urobilinogen Qn (U) 0.2 {Nayla'U}/dL Normal 0.0-1.0 [facility] Comment on above: Performed By: #### 1 4068707 ####[facility] [address] [place] [address] WBC Auto Ql (U) Negative Normal Negative [facility] Comment on above: Performed By: #### 1 6588630 ####[facility] [address] [place] [address] WBC LM.HPF (Urine sed) [#/Area] 0-5 Normal 0-5 [facility] Comment on above: Performed By: #### 1 4691662 ####[facility] [address] [place] [address] URINALYSISOrdered By: Tanya Nathan on 09-25-2023 Bilirubin [...] PM) Normal Negative [facility] UA Auto SS [place].plasma/[place] .RBC (Bld) [Mass ratio] 0-3 /HPF Normal [...] [facility] UA Auto SS Urobilinogen Qn (U) 0.5899029 {Nayla'U}/dL Normal 0.0 - 1.0 EU/dL [facility] UA Auto SS WBC Auto Ql (U) Negative (09/25/23 9:53 PM) Normal Negative [facility] UA Auto SS WBC LM.HPF (Urine sed) [#/Area] 0-5 /HPF Normal 0-5/HPF [facility] UA Auto SS eGFRon 09-25-2023 GFR/1.73 sq M.predicted among non-blacks MDRD (S/P/Bld) [Vol rate/Area] 74 mL/min/1.73 m2 Normal >=59 [facility] Comment on above: Order Comment: Order added by Discern Expert. Result Comment: Elementary Reading Specialist nita kidney disease could be indicated at eGFR's of less than 60 mL/min/1.73m2. Kidney failure is indicated at less than 15 mL/min/1.73m2. Performed By: #### 2 410088, 5101138, 7121805, 6506637, 67083162, 5409768 ####[facility] [address] [place] [address] 36on 09-08-2023 36 Approving, but needs appt for additional refills. Normal [facility] Auto Diffon 09-08-2023 Basophils/100 WBC (Bld) 0.2 % Normal 0.0-2.0 [facility] Comment on above: Order Comment: Order Added by Discern Expert. Performed By: #### 2 825345, 64236713, 4470374, 9383562, 68673026, 76500011, 26313376, 7548335 ####[facility] [address] [place] [address] Basophils/Leukocytes Auto (Bld) [Pure # fraction] 0.0 E9/L Normal 0.0-0.2 [facility] Comment on above: Order Comment: Order Added by Discern Expert. Performed By: #### 2 056529, 17667890, 4284382, 4052722, 79259330, 63648926, 26440598, 2689856 ####[facility] [address] [place] [address] Eosinophils/100 WBC (Bld) 0.8 % Normal 0.0-8.0 [facility] Comment on above: Order Comment: Order Added by Discern Expert. Performed By: #### 2 147206, 59580893, 4887332, 8607283, 80908631, 56052814, 69103601, 0497639 ####[facility] [address] [place] [address] Eosinophils/Leukocytes Auto (Bld) [Pure # fraction] 0.1 E9/L Normal 0.0-0.5 [facility] Comment on above: Order Comment: Order Added by [place]inton Expert. Performed By: #### 2 052506, 39374678, 5269488, 6242375, 90721065, 39265818, 23599195, 8137195 ####[facility] [address] [place] [address] Lymphocytes/100 WBC (Bld) 11.3 % Low 14.0-50.0 [facility] Comment on above: Order Comment: Order Added by Discern Expert. Performed By: #### 2 084635, 01915605, 6844879, 4947489, 14686173, 66052612, 64356801, 6704729 ####[facility] [address] [place] [address] Lymphocytes/Leukocytes Auto (Bld) [Pure # fraction] 1.0 E9/L Normal 1.0-4.0 [facility] Comment on above: Order Comment: Order Added by Quinton Expert. Performed By: #### 2 139027, 89091132, 2295806, 6985757, 07549618, 61850521, 55246228, 9418491 ####[place] [address] [place] [address] Monocytes/100 WBC (Bld) 6.9 % Normal 4.0-14.0 [facility] Comment on above: Order Comment: Order Added by Quinton Expert. Performed By: #### 2 472183, 89202800, 0652383, 2245758, 86494343, 00376491, 42104746, 9152192 ####[facility] [address] [place] [address] Monocytes/Leukocytes Auto (Bld) [Pure # fraction] 0.6 E9/L Normal 0.2-1.0 [facility] Comment on above: Order Comment: Order Added by Quinton Expert. Performed By: #### 2 179785, 34192689, 3191592, 1948415, 01816742, 47033923, 11721352, 7468539 ####[facility] [address] [place] [address] Neutrophils/100 WBC (Bld) 80.8 % High 36.0-75.0 [facility] Comment on above: Order Comment: Order Added by Discern Expert. Performed By: #### 2 714610, 98875643, 3942192, 2915374, 36487432, 87314738, 25554582, 7637005 ####[facility] [address] [place] [address] Neutrophils/Leukocytes Auto (Bld) [Pure # fraction] 7.1 E9/L Normal 2.0-7.5 [facility] Comment on above: Order Comment: Order Added by Discern Expert. Performed By: #### 2 522814, 94195996, 7513465, 2992289, 39475184, 00259764, 00707329, 8809840 ####[facility] [address] [place] [address] BMPon 09-08-2023 Creatinine [Mass/Vol] 1.2 mg/dL Normal 0.5-1.3 [facility] Comment on above: Performed By: #### 2 393719, 62996803, 1372430, 9499228, 33056317, 82835337, 09972813, 3893837 ####[facility] [address] [place] [address] Urea nitrogen [Mass/Vol] 26 mg/dL High 5-21 [facility] Comment on above: Performed By: #### 2 344381, 68114043, 0816431, 1692576, 04508180, 07224170, 01351188, 4432693 ####[facility] [address] [place] [address] Urea nitrogen/Creatinine [Mass ratio] 22 No Units High 10-20 [facility] Comment on above: Performed By: #### 2 160221, 85360682, 7831685, 6012164, 72347815, 88711646, 92530215, 6572047 ####[facility] [address] [place] [address] Anion gap [Moles/Vol] 13 mmol/L Normal 6-16 [facility] Comment on above: Performed By: #### 2 275939, 13760847, 3663626, 6258468, 53369462, 99288426, 78885983, 1714094 ####[facility] [address] [place] [address] Calcium [Mass/Vol] 9.9 mg/dL Normal 8.9-11.1 [facility] Comment on above: Performed By: #### 2 477028, 91605901, 5818017, 8694884, 59587297, 47330618, 36610924, 4833630 ####[facility] [address] [place] [address] Chloride [Moles/Vol] 99 mmol/L Low 101-111 [facility] Comment on above: Performed By: #### 2 224995, 71423285, 1299710, 6434638, 65501990, 24771393, 36408581, 5676837 ####[facility] [address] [place] [address] CO2 [Moles/Vol] 28 mmol/L Normal 21-31 [facility] Comment on above: Performed By: #### 2 559716, 02815412, 9932923, 7099261, 16221560, 75797347, 66404096, 9316564 ####[facility] [address] [place] [address] Glucose [Mass/Vol] 126 mg/dL Normal 55-199 [facility] Comment on above: Result Comment: If t his glucose result represents a fasting glucose, interpretation should refer to the following reference range: 55-99 mg/dL Performed By: #### 2 501858, 78605925, 9145101, 9588748, 17720985, 81482047, 21260542, 3826181 ####[facility] [address] [place] [address] Potassium [Moles/Vol] 4.0 mmol/L Normal 3.5-5.3 [facility] Comment on above: Performed By: #### 2 606500, 31248503, 3957567, 9923051, 52106505, 40864177, 77677495, 7043904 ####[facility] [address] [place] [address] Sodium [Moles/Vol] 136 mmol/L Normal 135-145 [facility] Comment on above: Performed By: #### 2 022797, 99407908, 3937391, 3954291, 70425099, 98702998, 89921841, 2327463 ####[facility] [address] [place] [address] BNPon 09-08-2023 Int Ctr BNP Pass Normal [facility] Comment on above: Performed By: #### 2 542366, 46142991, 8541505, 5201117, 82083781, 35997444, 05254082, 8690788 ####[facility] [address] [place] [address] Natriuretic peptide B (Bld) [Mass/Vol] 21 pg/mL Normal 5-80 [facility] Comment on above: Performed By: #### 2 538648, 04872357, 9194467, 6650567, 16453846, 65683985, 76219839, 5742105 ####[facility] [address] [place] [address] CBC w/ Auto Diffon 3 Erythrocyte distribution width (RBC) [Ratio] 15.1 % High 10.9-14.2 [facility] Comment on above: Performed By: #### 2 012332, 50057512, 0690600, 8176056, 80693919, 38643594, 34413923, 4950528 ####[facility] [address] [place] [address] Hematocrit (Bld) [Volume fraction] 38.8 % Normal 34.0-46.0 [facility] Comment on above: Performed By: #### 2 688787, 55964971, 1560828, 2302863, 72265051, 51515269, 25686887, 2303987 ####[place] [address] [place] [address] Hemoglobin (Bld) [Mass/Vol] 13.0 g/dL Normal 12.0-16.0 [facility] Comment on above: Performed By: #### 2 841774, 87524841, 6547825, 1351010, 77840532, 52525599, 91873586, 8593986 ####[address] [address] MCH (RBC) [Entitic mass] 29.4 pg Normal 27.0-34.0 [facility] Comment on above: Performed By: #### 2 310837, 28564864, 3558210, 6846904, 58870785, 75635431, 07495927, 4203925 ####[address] [address] MCHC (RBC) [Mass/Vol] 33.5 g/dL Normal 31.4-36.0 [facility] Comment on above: Performed By: #### 2 538478, 17907377, 1961812, 8485326, 59450825, 21805536, 80016243, 0601130 ####[address] [address] MCV (RBC) [Entitic vol] 87.6 fL Normal 80.0-100.0 [facility] Comment on above: Performed By: #### 2 345383, 23078879, 1130541, 4102075, 64798366, 12374466, 90531021, 9686381 ####[place] [address] [place] [address] Platelet mean volume (Bld) [Entitic vol] 10.7 fL Normal 6.4-10.8 [facility] Comment on above: Performed By: #### 2 970385, 43567759, 0088329, 7190691, 18323038, 35974207, 58910015, 3552999 ####[facility] [address] [place] [address] Platelets (Bld) [#/Vol] 195.0 E9/L Normal 150.0-500.0 [facility] Comment on above: Performed By: #### 2 585374, 76269283, 6724289, 1746678, 59258854, 33519545, 73809852, 2902824 ####[facility] [address] [place] [address] RBC (Bld) [#/Vol] 4.4 E12/L Normal 4.3-5.9 [facility] Comment on above: Performed By: #### 2 936202, 70690119, 2084638, 8133541, 88587238, 89806823, 89160253, 4291660 ####[facility] [address] [place] [address] WBC corrected for nucl RBC Auto (Bld) [#/Vol] 8.8 E9/L Normal 4.0-11.0 [facility] Comment on above: Performed By: #### 2 142805, 64073383, 6162171, 3173453, 51371025, 91195320, 61854094, 5197822 ####[facility] [address] [place] [address] CHEMISTRYOrdered By: SYSTEM SYSTEM on 09-08-2023 Troponin [...] mL/min/1.73 m2 Low >=59mL/min/[address] [facility] Chem S Comment on above: Interpretive Data: [...] 4.70 pg/mL Low 10.10 - 27.10 pg/mL [facility] Remisol Comment on above: Interpretive Data: T he 95% CI (Confidence Interval) PPV (Positive Predictive Value) for myocardial infarction in females is 38 pg/mL, in males 51 pg/mL. The results should be used in conjunction with clinical conditions of myocardial infarction. (Access High Sensitivity Troponin I Instructions For Use, Claude light, May 2018) Urea nitrogen [Mass/Vol] 26 mg/dL High 5 - 21 mg/dL [facility] Remisol Urea nitrogen/Creatinine [Mass ratio] 22 mg/mg High 10 - [address] [facility] Remisol CHEMISTRYOrdered By: Yanet Davis on 09-08-2023 Natriuretic peptide B (Bld) [Mass/Vol] 21 pg/mL Normal 5 - 80 pg/mL [facility] HemeManSS COAGULATIONOrdered By: Dov Patel on 09-08-2023 aPTT Coag (PPP) [Time] 37.3 s High 25.1 - 36.5 second(s) [facility] Auto Coag Comment on above: Interpretive Data: [...] same coagulation reagent and instrumentation as [facility]. Currently there are no coagulation studies available worldwide for children to 14 days, and no normal ranges. Heparin therapeutic range (represented by Anti-Factor Xa activity of 0.2 - 0.4 U/mL) corresponds to PTT of 56.6 - 109.0 sec. INR Coag (PPP) [Relative time] 1.2 {INR} Invalid Interpretation Code [facility] Comment on above: Interpretive Data: I NR results are specifically intended to assess patients stabilized on long-term Anticoagulation therapy suggested INR s Less Intensive Anticoagulation 2.0 3.0 Conventional Range 3.0 4.5 PT Coag (PPP) [Time] 13.7 s High 9.4 - 1 2.5 second(s) [facility] Comment on above: Interpretive Data: [...] same coagulation reagent and instrumentation as [facility]. Currently there are no coagulation studies available [...] 370 Contrast amount in ml's: 68 Normal [facility] Consent for Treatmenton 0 Consent for Treatment [id number]# 1.00TIFF Normal [facility] Discharge Instructionson Discharge Instructions [id number]# 1.00TIFF Normal [facility] ED Clinical Summaryon 2022 ED Clinical Summary [place] [id number] ED Clinical Summary Person Information Name: LITO MOORESHANNON Rosales [place] Age: 57 Years : 1965 Sex: Female Language: Serbian PCP: BREA JJ CNP Marital Status: Visit [...] 09/08/2023 20:29:11 09/08/2023 20:29:11 09/08/2023 20:29:11 ADDRESS: [address] [place] [address] [address] [facility] [phone] PHYS DOC NOTES: MEDICAL INFORMATION: Prescriptions Given: [...] day. fluticasone nasal (fluticasone Nasal 0.05 mg/inh [place]) 2 Sprays Nasal Inhalation every day. each [...] Mouth every day. potassium chloride (Potassium Chloride (Nsl-Oqoi-Jck 10) 10 mEq oral tablet, extended release) [...] With: Address: When: BREA JJ [address] [place], [place] [phone] Business (1) In 3 days DIAGNOSIS: Acute chest pain Normal [facility] ED Note-Physicianon 09-08-20 ED Note-Physician Patient [...] precautions. Patient was discharged stable condition. Normal [facility] Comment on above: Result Comment: Dorene rodriguezally Signed By: Moses Fischer DO\.marek\Date and Time [...] History O (more content not included)... Normal [facility] Comment on above: Result Comment: Elec [...] these instructions at home: Medicines ? Take pbam-zuq-chhmxxs and prescription medicines only as told by [...] by your (more content not included)... Normal [facility] ED Patient Summaryon 11-09-2 023 ED Patient Summary [place] [id number] Patient Discharge Instructions Person Information Name: ALIYA MOORE Age: 57 Years Arrival Date: 09/08/2023 16:32:21 Discharge Diagnosis: Acute chest pain Primary Care Physician: BREA JJ CNP Provider Information Primary Provider: Rasmes Hair DO Advanced Supervisor Publications:None The exam and treatment you received in the Emergency Department were for an urgent problem and are not intended as complete care. It is important that you follow up with a doctor, nurse practitioner, or physician?s assignment desk assistant for ongoing care. If your symptoms [...] With: Address: When: BREA JJ [address], [place] [phone] Business (1) In 3 days In the event that this physician does not participate in your insurance network, please consult with your insurance company to find a nearby participating provider. Patient Education Materials: Nonspecific Chest Pain, Adult A MESSAGE TO ALL PATIENTS REGARDING OPIOIDS PRESCRIPTION OPIOIDS: WHAT YOU NEED TO KNOW Prescription opioids can be used to help relieve nmyfwcbr-py-sfxmtg pain and are often prescribed following a [...] be struggling with addiction, tell your health personal care aid and ask for guidance or call SAM[employer]?S National Helpline at 6-647-545-HELP. v Source: [place] (more content not included)... Normal [facility] EMS Documentationon 09-08-20 EMS Documentation Please click on link to see report Normal [facility] Comment on above: Result Comment: Miss [...] Bilirubin.indirect [Mass or moles/Vol] UTC Abnormal 0.1-0.9 [facility] Comment on above: Result Comment: Resu lt verified by Discern Rule. Performed result UTC (Unable to Calculate) was sent as an Alpha code due the inability to calculate a valid numeric value. Performed By: #### 2 511512, [id number], 4617555, 9587114, 70314747, 92927702, 87351345, 3473770 ####[facility] [address] [place] [address] Albumin [Mass/Vol] 3.8 g/dL Normal 3.3-5.0 [facility] Comment on above: Performed By: #### 2 103498, 34477001, 0529733, 7551022, 30532990, 84484651, 28118265, 0454605 ####[facility] [address] [place] [address] Albumin/Globulin (S) [Mass conc ratio] 0.8 Low 1.1-2.2 [facility] Comment on above: Performed By: #### 2 601397, 99829036, 9084460, 7560321, 64106443, 46115960, 90825475, 2877150 ####[place] [address] [place] [address] ALP [Catalytic activity/Vol] 68 Int._Unit/L Normal 21-98 [facility] Comment on above: Performed By: #### 2 803053, 60266357, 5728240, 2675112, 67366659, 40228345, 06277920, 9744732 ####[address] [address] ALT No additional P-5'-P [Catalytic activity/Vol] 18 Int._Unit/L Normal 6-46 [facility] Comment on above: Performed By: #### 2 952419, 51216220, 5414610, 8843048, 66551796, 74010083, 89526357, 0919488 ####[address] [address] AST [Catalytic activity/Vol] 20 Int._Unit/L Normal 5-43 [facility] Comment on above: Performed By: #### 2 324319, 86065158, 0652693, 3562908, 05383627, 98305695, 01303410, 9388148 ####[place] [address] [place] [address] Bilirubin [Mass/Vol] 0.4 mg/dL Normal 0.0-1.1 [facility] Comment on above: Performed By: #### 2 398838, 08719608, 0478954, 3365301, 67208318, 90019044, 18332332, 8327606 ####[place] [address] [place] [address] Globulin (S) [Mass/Vol] 4.5 g/dL High 1.4-4.0 [facility] Comment on above: Performed By: #### 2 628419, 22812251, 7346551, 8945405, 35305967, 15538070, 25547346, 7094980 ####[facility] [address] [place] [address] Protein [Mass/Vol] 8.3 g/dL High 6.0-7.8 [facility] Comment on above: Performed By: #### 2 134557, 55986679, 3998092, 1143769, 68713444, 77633956, 44535860, 9584283 ####[facility] [address] [place] [address] Bilirubin.direct [Mass/Vol] mg/dL Normal 0.1-0.4 [facility] Comment on above: Performed By: #### 2 246674, 97084697, 9858352, 7539653, 69108239, 11604356, 15097296, 4319430 ####[facility] [address] [place] [address] Monitor Recordon 09-08-2023 Monitor Record [id number]# 1.00TIFF Normal [facility] Monitor Record [id number]# 1.00TIFF Normal [facility] PT & PTTon 09-08-2023 aPTT Coag (PPP) [Time] 37.3 second(s) High 25.1-36.5 [facility] Comment on above: Result Comment: Para [...] same coagulation reagent and instrumentation as [facility]. Currently there are no coagulation studies available worldwide for children to 14 days, and no normal ranges. Heparin therapeutic range (represented by Anti-Factor Xa activity of 0.2 - 0.4 U/mL) corresponds to PTT of 56.6 - 109.0 sec. Performed By: #### 2 350626, 99286930, 5438671, 2950932, 23345837, 38415070, 45680854, 2809748 ####[facility] [address] [place] [address] INR Coag (PPP) [Relative time] 1.2 {INR} Invalid Interpretation Code [facility] Comment on above: Result Comment: INR results are specifically intended to assess patients stabilized on long-term Anticoagulation therapy suggested INR?s ?Less Intensive Anticoagulation? 2.0 ? 3.0 Conventional Range 3.0 ? 4.5 Performed By: #### 2 162543, 13912806, 5558186, 1833890, 11943969, 40169915, 19636978, 8527436 ####[facility] [address] [place] [address] PT Coag (PPP) [Time] 13.7 second(s) High 9.4-12.5 [facility] Comment on above: Result Comment: 15 [...] same coagulation reagent and instrumentation as [facility]. Currently there are no coagulation studies available worldwide for children to 14 days, and no normal ranges. Performed By: #### 2 996200, 58408825, 6493639, 8972254, 16882411, 40062418, 48701780, 3236893 ####[facility] [address] [place] [address] Troponin 0 Hr.on 09-08-2023 Troponin I.cardiac [Mass/Vol] 4.70 pg/mL Low 10.10-27.10 [facility] Comment on above: Result Comment: The 95% CI (Confidence Interval) PPV (Positive Predictive Value) for myocardial infarction in females is 38 pg/mL, in males 51 pg/mL. The results should be used in conjunction with clinical conditions of myocardial infarction. (Access High Sensitivity Troponin I Instructions For Use, [employer], May 2018) Performed By: #### 2 815391, 09931023, 2515222, 9365106, 80661765, 75244795, 92706978, 8695980 ####[facility] [address] [place] [address] Troponin 3 Hr.on 09-08-2023 Troponin I.cardiac [Mass/Vol] 4.20 pg/mL Low 10.10-27.10 [facility] Comment on above: Result Comment: The 95% CI (Confidence Interval) PPV (Positive Predictive Value) for myocardial infarction in females is 38 pg/mL, in males 51 pg/mL. The results should be used in conjunction with clinical conditions of myocardial infarction. (Access High Sensitivity Troponin I Instructions For Use, [employer], May 2018) Performed By: #### 1 [id number] ####[place] [address] [place] [address] eGFRon 09-08-2023 GFR/1.73 sq M.predicted among non-blacks MDRD (S/P/Bld) [Vol rate/Area] 52 mL/min/1.73 m2 Low >=59 [facility] Comment on above: Order Comment: Order added by Discern Expert. Result Comment: Elementary Reading Specialist nita kidney disease could be indicated at eGFR's of less than 60 mL/min/1.73m2. Kidney failure is indicated at less than 15 mL/min/1.73m2. Performed By: #### 2 860583, 39019923, 6063525, 6696524, 81476372, 09396997, 90218441, 5619813 ####[facility] [address] [place] [address] Office Visiton 07-20-2023 Follow-up visit [id number] Aliya Moore 1965 F Date Provider Department Center 07/20/2023 [facility]MARLENE [facility] Family History Problem Relation Age of Onset Coronary artery disease Other Pulmonary embolism Other Deep vein thrombosis Other Family Status - Relation Status Age at Other Level of Service:[address] [place] OFFICE/OUTPATIENT ESTABLISHED LOW MDM 20-29 MIN Normal [facility] CHEMISTRYOrdered By: Lab ROP User on 06-17-2023 Glucose [Mass/Vol] 109 mg/dL High 55 - 99 mg/dL [facility] POC Subsection Comment on above: Result Comment: Rafaela garzon RN/ POC Device SN [id number] Invalid Interpretation Code [facility] POC Subsection POC User ID [id number] Invalid Interpretation Code [facility] POC Subsection POC Username BRENDA KHAN Invalid Interpretation Code [facility] POC Subsection Glucose [Mass/Vol] 133 mg/dL High 55 - 99 mg/dL [facility] POC Subsection Comment on above: Result Comment: Rafaela garzon RN/ POC Device SN [id number] Invalid Interpretation Code [facility] POC Subsection POC User ID [id number] Invalid Interpretation Code [facility] POC Subsection POC Username WYATT MUROAdriana Invalid Interpretation Code [facility] POC Subsection Glucose [Mass/Vol] 109 mg/dL High 55 - 99 mg/dL [facility] POC Subsection Comment on above: Result Comment: Rafaela garzon RN/ POC Device SN [id number] Invalid Interpretation Code [facility] POC Subsection POC User ID [id number] Invalid Interpretation Code [facility] POC Subsection POC Username BRENDA KHAN Invalid Interpretation Code [facility] POC Subsection CHEMISTRYOrdered By: Kimberley Freeman on 06-17-2023 HbA1c (Bld) [Mass fraction] 5.7 % Normal <=5.9% [facility] ChemAutoSS CHEMISTRYOrdered By: SYSTEM SYSTEM on 06-17-2023 Troponin I.cardiac [Mass/Vol] 5.20 pg/mL Low 10.10 - 27.10 pg/mL [facility] Remisol CHEMISTRYOrdered By: SYSTEM SYSTEM on 06-16-2023 Troponin I.cardiac [Mass/Vol] 5.50 pg/mL Low 10.10 - 27.10 pg/mL [facility] Remisol Troponin I.cardiac [Mass/Vol] 5.30 pg/mL Low 10.10 - 27.10 pg/mL [facility] Remisol Anion gap [Moles/Vol] 12 mmol/L Normal 6 - 16 mEq/L F C Remisol Calcium [Mass/Vol] 9.9 mg/dL Normal 8.9 - 11. 1 mg/dL [facility] Remisol Chloride [Moles/Vol] 101 mmol/L Normal 101 - 1 11 mmol/L [facility] Remisol CO2 [Moles/Vol] 27 mmol/L Normal 21 - 31 mmol/L [facility] Remisol Creatinine [Mass/Vol] 0.8 mg/dL Normal 0.5 - 1.3 mg/dL [facility] Remisol GFR/1.73 sq M.predicted among non-blacks MDRD (S/P/Bld) [Vol rate/Area] 85 mL/min/1.73 m2 Normal >=59mL/min/1 .73 m2 [facility] Chem S Glucose [Mass/Vol] 129 mg/dL Normal 55 - 199 mg/dL [facility] Remisol Potassium [Moles/Vol] 3.9 mmol/L Normal 3.5 [...] 87.6 fL Normal 80.0 - 100.[address] [facility] HemeAutoSS Platelet mean volume (Bld) [Entitic vol] 10.5 fL Normal 6.4 - 10.[address] [facility] HemeAutoSS Platelets (Bld) [#/Vol] 172.0 E9/L Normal 150.0 - 500.0 E9/L [facility] HemeAutoSS RBC (Bld) [#/Vol] 4.6 E12/L Normal 4.3 - 5.9 E12/L [facility] HemeAutoSS WBC corrected for nucl RBC Auto (Bld) [#/Vol] 8.4 E9/L Normal 4.0 - 11.0 E9/L [facility] HemeAutoSS 36on 06-09-2023 36 Patient will need a follow up appointment for further refills Normal [facility] BNPon 02-23-2023 Natriuretic peptide B (Bld) [Mass/Vol] 114.0 pg/mL Normal <=900.0 [facility] Comment on above: Performed By: #### C MP, BNP, HSTROPN #### [facility] [address] [place] [address] Dr. Xiomy Lennon CBC AUTO DIFFon 02-23-2023 BASO # 0.0 103/ul Normal 0.0-0.1 [facility] Comment on above: Performed By: #### P T, PTT #### [facility] [address] [place] [address] Dr. Xiomy Lennon Basophils/100 WBC (Bld) 0.2 % Normal 0.2-2.0 [facility] Comment on above: Performed By: #### P T, PTT #### [facility] [address] [place] [address] Dr. Xiomy Lennon EO # 0.2 103/ul Normal 0.0-0.7 [facility] Comment on above: Performed By: #### P T, PTT #### [facility] [address] [place] [address] Dr. Xiomy Lennon Eosinophils/100 WBC (Bld) 1.8 % Normal 0.9-7.0 [facility] Comment on above: Performed By: #### P T, PTT #### [facility] [address] [place] [address] Dr. Xiomy Lennon Erythrocyte distribution width (RBC) [Ratio] 15.4 % Critically high 11.0-15.0 [facility] Comment on above: Performed By: #### P T, PTT #### [facility] [address] [place] [address] Dr. Xiomy Lennon Hematocrit (Bld) [Volume fraction] 37.6 % Normal 36.0-48.0 [facility] Comment on above: Performed By: #### P T, PTT #### [facility] [address] [place] [address] Dr. Xiomy Lennon Hemoglobin (Bld) [Mass/Vol] 12.2 g/dL Normal 12.0-16.0 [facility] Comment on above: Performed By: #### P T, PTT #### [facility] [address] [place] [address] Dr. Xiomy Lennon IG # 0.02 10e3/ul Normal 0.00-0.03 [facility] Comment on above: Performed By: #### P T, PTT #### [facility] [address] [place] [address] Dr. Xiomy Lennon IG % 0.2 % Normal 0.0-0.5 [facility] Comment on above: Performed By: #### P T, PTT #### [facility] [address] [place] [address] Dr. Xiomy Lennon LYMPH # 1.7 103/ul Normal 1.2-3.8 [facility] Comment on above: Performed By: #### P T, PTT #### [facility] [address] [place] [address] Dr. Xiomy Lennon Lymphocytes/100 WBC (Bld) 17.0 % Critically low 20.5-60.0 [facility] Comment on above: Performed By: #### P T, PTT #### [facility] [address] [place] [address] Dr. Xiomy Lennon MANUAL DIFF REQ NO Normal [facility] Comment on above: Performed By: #### P T, PTT #### [facility] [address] [place] [address] Dr. Xiomy Lennon MCH (RBC) [Entitic mass] 28.6 pg Normal 26.7-34.0 [facility] Comment on above: Performed By: #### P T, PTT #### [facility] [address] [place] [address] Dr. Xiomy Lennon MCHC (RBC) [Mass/Vol] 32.4 g/dL Normal 29.9-35.2 [facility] Comment on above: Performed By: #### P T, PTT #### [facility] [address] [place] [address] Dr. Xiomy Lennon MCV (RBC) [Entitic vol] 88.3 fL Normal 81.0-99.0 [facility] Comment on above: Performed By: #### P T, PTT #### [facility] [address] [place] [address] Dr. Xiomy Lennon MONO # 0.7 103/ul Normal 0.3-0.8 [facility] Comment on above: Performed By: #### P T, PTT #### [facility] [address] [place] [address] Dr. Xiomy Lennon Monocytes/100 WBC (Bld) 7.3 % Normal 1.7-12.0 [facility] Comment on above: Performed By: #### P T, PTT #### [facility] [address] [place] [address] Dr. Xiomy Lennon NEUT # 7.2 103/ul Critically high 1.4-6.5 [facility] Comment on above: Performed By: #### P T, PTT #### [facility] [address] [place] [address] Dr. Xiomy Lennon Neutrophils/100 WBC (Bld) 73.5 % Normal 43.0-75.0 [facility] Comment on above: Performed By: #### P T, PTT #### [facility] [address] [place] [address] Dr. Xiomy Lennon Platelet mean volume (Bld) [Entitic vol] 11.5 fL Normal 9.5-13.5 [facility] Comment on above: Performed By: #### P T, PTT #### [facility] [address] [place] [address] Dr. Xiomy Lennon PLT 197 103/ul Normal 150-450 [facility] Comment on above: Performed By: #### P T, PTT #### [facility] [address] [place] [address] Dr. Xiomy Lennon RBC 4.26 106/ul Normal 4.20-5.40 [facility] Comment on above: Performed By: #### P T, PTT #### [facility] [address] [place] [address] Dr. Xiomy Lennon WBC 9.7 103/ul Normal 4.0-11.0 [facility] Comment on above: Performed By: #### P T, PTT #### [facility] [address] [place] [address] Dr. Xiomy Lennon LACTATE/LACTIC ACIDon 2022 Lactate [Moles/Vol] 0.7 mmol/L Normal 0.4-2.0 [facility] Comment on above: Performed By: #### P T, PTT #### [facility] [address] [place] [address] Dr. Xiomy Lennon PROF 14(COMP METB)on 023 Albumin [Mass/Vol] 3.3 g/dL Critically low 3.4-5.0 [facility] Comment on above: Performed By: #### C MP, BNP, HSTROPN #### [facility] [address] [place] [address] Dr. Xiomy Lennon Albumin/Globulin [Mass ratio] 0.7 {ratio} Normal [facility] Comment on above: Performed By: #### C MP, BNP, HSTROPN #### [facility] [address] [place] [address] Dr. Xiomy Lennon ALP [Catalytic activity/Vol] 89 U/L Normal 46-116 [facility] Comment on above: Performed By: #### C MP, BNP, HSTROPN #### [facility] [address] [place] [address] [address] Xiomy Lennon ALT [Catalytic activity/Vol] 34 U/L Normal 14-59 [facility] Comment on above: Performed By: #### C MP, BNP, HSTROPN #### [facility] [address] [place] [address] [address] Xiomy Lennon Anion gap [Moles/Vol] 10.5 mmol/L Normal [facility] Comment on above: Performed By: #### C MP, BNP, HSTROPN #### [facility] [address] [place] [address] [address] Xiomy Lennon AST [Catalytic activity/Vol] 22 U/L Normal 15-37 [facility] Comment on above: Performed By: #### C MP, BNP, HSTROPN #### [facility] [address] [place] [address] Dr. Xiomy Lennon Bilirubin [Mass/Vol] 0.3 mg/dL Normal 0.2-1.0 [facility] Comment on above: Performed By: #### C MP, BNP, HSTROPN #### [facility] [address] [place] [address] [address] Xiomy Lennon Calcium [Mass/Vol] 9.4 mg/dL Normal 8.5-10.1 [facility] Comment on above: Performed By: #### C MP, BNP, HSTROPN #### [facility] [address] [place] [address] [address] Xiomy Lennon Chloride [Moles/Vol] 99 mmol/L Normal 98-107 [facility] Comment on above: Performed By: #### C MP, BNP, HSTROPN #### [facility] [address] [place] [address] Dr. Xiomy Lennon CO2 [Moles/Vol] 31.6 mmol/L Normal 21.0-32.0 [facility] Comment on above: Performed By: #### C MP, BNP, HSTROPN #### [facility] [address] [place] [address] Dr. Xiomy Lennon Creatinine [Mass/Vol] 0.86 mg/dL Normal 0.55-1.02 [facility] Comment on above: Performed By: #### C MP, BNP, HSTROPN #### [facility] [address] [place] [address] [address] Xiomy Lennon EGFR-AF COMORAN >60 Normal >=60 [facility] Comment on above: Performed By: #### C MP, BNP, HSTROPN #### [facility] [address] [place] [address] [address] Xiomy Lennon EGFR-NON AF COMORAN >60 Normal >=60 [facility] Comment on above: Performed By: #### C MP, BNP, HSTROPN #### [facility] [address] [place] [address] Dr. Xiomy Lennon Globulin (S) [Mass/Vol] 4.6 g/dL Normal [facility] Comment on above: Performed By: #### C MP, BNP, HSTROPN #### [facility] [address] [place] [address] Dr. Xiomy Lennon Glucose [Mass/Vol] 133 mg/dL Critically high 74-106 [facility] Comment on above: Performed By: #### C MP, BNP, HSTROPN #### [facility] [address] [place] [address] Dr. Xiomy Lennon Potassium [Moles/Vol] 4.1 mmol/L Normal 3.5-5.1 [facility] Comment on above: Performed By: #### C MP, BNP, HSTROPN #### [facility] [address] [place] [address] Dr. Xiomy Lennon Protein [Mass/Vol] 7.9 g/dL Normal 6.4-8.2 [facility] Comment on above: Performed By: #### C MP, BNP, HSTROPN #### [facility] [address] [place] [address] Dr. Xiomy Lennon Sodium [Moles/Vol] 137 mmol/L Normal 136-145 [facility] Comment on above: Performed By: #### C MP, BNP, HSTROPN #### [facility] [address] [place] [address] Dr. Xiomy Lennon Urea nitrogen [Mass/Vol] 16.0 mg/dL Normal 7.0-18.0 [facility] Comment on above: Performed By: #### C MP, BNP, HSTROPN #### [facility] [address] [place] [address] Dr. Xiomy Lennon Urea nitrogen/Creatinine [Mass ratio] 18.6 mg/mg Normal [facility] Comment on above: Performed By: #### C MP, BNP, HSTROPN #### [facility] [address] [place] [address] Dr. Xiomy Lennon PROTIMEon 02-23-2023 INR Coag (PPP) [Relative time] 0.95 {INR} Normal [facility] Comment on above: Performed By: #### P TT, PT #### [facility] [address] [place] [address] Dr. Xiomy Lennon INR GUIDELINES SEE BELOW Normal [facility] Comment on above: Result Comment: NIALL RED INR: 2.0 - 3.0 CONDITIONS NOT LISTED BELOW 2.5 - 3.5 FOR PROSTHETIC HEART VALVE REPLACEMENT 2.5 - 3.5 RECURRENT THROMBOSIS Performed By: #### P TT, PT #### [facility] [address] [place] [address] Dr. Xiomy Lennon PT Coag (PPP) [Time] 10.1 s Normal 9.0-11.6 [facility] Comment on above: Performed By: #### P TT, PT #### [facility] [address] [place] [address] Dr. Xiomy Lennon PTTon 02-23-2023 aPTT Coag (Bld) [Time] 27.2 s Normal 22.3-36.2 [facility] Comment on above: Performed By: #### P TT, PT #### [facility] [address] [place] [address] Dr. Xiomy Lennon TROPONIN, HIGH SENSITIVITYon 02-23-2023 HSTROP 6.2 pg/mL Normal 4.0-51.3 [facility] Comment on above: Result Comment: CUT- OFF POINTS HAVE BEEN ESTABLISHED BASED ON THE [employer] DEFINITIONS OF MYOCARDIAL INFARCTION. THE UPPER REFERENCE LIMIT (URL) OF TROPONIN, DEFINED THE 99TH PERCENTILE OF cTnI DISTRIBUTION IN A REFERENCE POPULATION, HAS BEEN CONFIRMED THE DECISION THRESHOLD FOR [place] DIAGNOSIS. Performed By: #### C MP, BNP, HSTROPN #### [facility] [address], [place] [address] Dr. Xiomy Lennon XR CHEST 1 Von [...] JUSTINE MARES Date: 2023-02-23 19:05 Normal [facility] HEMOGLOBINon 02-01-2023 Hemoglobin (Bld) [Mass/Vol] 13.0 g/dL Normal 12.0-16.0 [facility] Comment on above: Performed By: #### H GB #### [facility] [address] [place] [address] [address] Xiomy Lennon PULMONARY FUNCTION TESTon PULMONARY [...] ambulation/activity. 3. Clinical correlation required. Normal [facility] CT LUNG CANCER SCREENINGon 0 01-12-2023 [...] by: MIGUEL MEDEROS Date: 2023-01-12 14:10 Normal [facility] GLYCOHEMOGLOBIN A1Con 2022 ADA RECOMMENDATION SEE BELOW Normal [facility] Comment on above: Result Comment: ADA RECOMMENDED LIMIT 4.0 - 6.0 ADA THERAPEUTIC TARGET < 7.0 ACTION SUGGESTED > 7.0 Performed By: #### A 1C #### [facility] [address], [place] [address] Dr. Xiomy Lennon Glucose [Mass/Vol] 111 mg/dL Normal [facility] Comment on above: Performed By: #### A 1C #### [facility] [address], [place] [address] Dr. Xiomy Lennon HbA1c (Bld) [Mass fraction] 5.5 % Normal 4.5-6.2 [facility] Comment on above: Performed By: #### A 1C #### [facility] [address] [place] [address] Dr. Xiomy Lennon PROF CHEM 8 (BAS METB)on Anion gap [Moles/Vol] 12.0 mmol/L Normal [facility] Comment on above: Performed By: #### P T, PTT #### [facility] [address] [place] [address] Dr. Xiomy Lennon Calcium [Mass/Vol] 10.0 mg/dL Normal 8.5-10.1 [facility] Comment on above: Performed By: #### P T, PTT #### [facility] [address] [place] [address] Dr. Xiomy Lennon Chloride [Moles/Vol] 102 mmol/L Normal 98-107 [facility] Comment on above: Performed By: #### P T, PTT #### [facility] [address] [place] [address] Dr. Xiomy Lennon CO2 [Moles/Vol] 30.4 mmol/L Normal 21.0-32.0 [facility] Comment on above: Performed By: #### P T, PTT #### [facility] [address] [place] [address] Dr. Xiomy Lennon Creatinine [Mass/Vol] 0.79 mg/dL Normal 0.55-1.02 [facility] Comment on above: Performed By: #### P T, PTT #### [facility] [address] [place] [address] Dr. Xiomy Lennon EGFR-AF COMORAN >60 Normal >=60 [facility] Comment on above: Performed By: #### P T, PTT #### [facility] [address] [place] [address] Dr. Xiomy Lennon EGFR-NON AF COMORAN >60 Normal >=60 [facility] Comment on above: Performed By: #### P T, PTT #### [facility] [address] [place] [address] Dr. Xiomy Lennon Glucose [Mass/Vol] 147 mg/dL Critically high 74-106 [facility] Comment on above: Performed By: #### P T, PTT #### [facility] [address] [address] [address] Xiomy Lennon Potassium [Moles/Vol] 4.4 mmol/L Normal 3.5-5.1 [facility] Comment on above: Performed By: #### P T, PTT #### [facility] [address] [address] [address] Xiomy Lennon Sodium [Moles/Vol] 140 mmol/L Normal 136-145 [facility] Comment on above: Performed By: #### P T, PTT #### [facility] [address], [place] [address] Dr. Xiomy Lennon Urea nitrogen [Mass/Vol] 18.0 mg/dL Normal 7.0-18.0 [facility] Comment on above: Performed By: #### P T, PTT #### [facility] [address] [address] [address] Xiomy Lennon Urea nitrogen/Creatinine [Mass ratio] 22.8 mg/mg Normal [facility] Comment on above: Performed By: #### P T, PTT #### [facility] [address] [address] [address] Xiomy Lennon Office Visiton 12-24-2022 Follow-up visit [id number] Aliya Moore 1965 F Date Provider Department Center 12/24/2022 TOSHIA OLIVARES [facility] Family History Problem Relation Age of Onset Coronary artery disease Other Pulmonary embolism Other Deep vein thrombosis Other Family Status - Relation Status Age at Other Level of Service:[address] [place] OFFICE/OUTPATIENT ESTABLISHED MOD MDM 30-39 MIN Reason for Visit and Comments: Hypertension [556741] Shortness of Breath [075085] Normal [facility] THEOPHYLLINEon 11-04-2022 THEOPHYLLINE 2.1 ug/mL Critically low 10.0-20.0 [facility] Comment on above: Performed By: #### T HERBERT #### [facility] [id number] Xiomy Lennon GLYCOHEMOGLOBIN A1Con 2021 ADA RECOMMENDATION SEE BELOW Normal [facility] Comment on above: Result Comment: ADA RECOMMENDED LIMIT 4.0 - 6.0 ADA THERAPEUTIC TARGET < 7.0 ACTION SUGGESTED > 7.0 Performed By: #### P T, PTT #### [facility] [address] [place] [address] Dr. Xiomy Lennon Glucose [Mass/Vol] 120 mg/dL Normal [facility] Comment on above: Performed By: #### P T, PTT #### [facility] [address] [address] [address] Xiomy Lennon HbA1c (Bld) [Mass fraction] 5.8 % Normal 4.5-6.2 [facility] Comment on above: Performed By: #### P T, PTT #### [facility] [address] [place] [address] Dr. Xiomy Lennon LIPID PROFILEon 07-28-2022 CHOL-HDL RATIO NORM SEE BELOW Normal [facility] Comment on above: Result Comment: 3.3 - 4.4 LOW RISK 4.4 - 7.1 AVERAGE RISK 7.1 - 11.0 MODERATE RISK >11.0 HIGH RISK Performed By: #### P T, PTT #### [facility] [address] [place] [address] Dr. Xiomy Lennon Cholesterol [Mass/Vol] 135 mg/dL Normal <=200 [facility] Comment on above: Performed By: #### P T, PTT #### [facility] [address] [place] [address] Dr. Xiomy Lennon Cholesterol in HDL [Mass/Vol] 77 mg/dL Critically high 40-60 [facility] Comment on above: Performed By: #### P T, PTT #### [facility] [address] [address] [address] Xiomy Lennon Cholesterol in LDL [Mass/Vol] 44.6 mg/dL Normal [facility] Comment on above: Performed By: #### P T, PTT #### [facility] [address] [place] [address] Dr. Xiomy Lennon Cholesterol.total/Chol esterol in HDL [Mass ratio] 1.8 {ratio} Normal [facility] Comment on above: Performed By: #### P T, PTT #### [facility] [address] [address] [address] Xiomy Lennon HDL NORMAL > or = 60 mg/dl - LO W CARDIOVASCULAR RISK <40 mg/dl - HIGH CARDIOVASCULAR RISK Normal [facility] Comment on above: Performed By: #### P T, PTT #### [facility] [address] [address] [address] Xiomy Lennon LDL CALC NORMAL SEE BELOW Normal [facility] Comment on above: Result Comment: <100 mg/dl OPTIMAL 100 - 129 mg/dl NEAR OR ABOVE OPTIMAL 130 - 159 mg/dl BORDERLINE HIGH 160 - 189 mg/dl HIGH >190 mg/dl VERY HIGH Performed By: #### P T, PTT #### [facility] [address] [address] [address] Xiomy Lennon Triglyceride [Mass/Vol] 67 mg/dL Normal <=150 [facility] Comment on above: Performed By: #### P T, PTT #### [facility] [address] [address] [address] Xiomy Lennon VLDL CALC 13.4 mg/dL Normal [facility] Comment on above: Performed By: #### P T, PTT #### [facility] [address] [place] [address] Dr. Xiomy Lennon PROF CHEM 8 (BAS METB)on Anion gap [Moles/Vol] 8.9 mmol/L Normal [facility] Comment on above: Performed By: #### P T, PTT #### [facility] [address] [address] [address] Xiomy Lennon Calcium [Mass/Vol] 9.7 mg/dL Normal 8.5-10.1 [facility] Comment on above: Performed By: #### P T, PTT #### [facility] [address] [place] [address] Dr. Xiomy Lennon Chloride [Moles/Vol] 99 mmol/L Normal 98-107 [facility] Comment on above: Performed By: #### P T, PTT #### [facility] [address] [place] [address] Dr. Xiomy Lennon CO2 [Moles/Vol] 32.0 mmol/L Normal 21.0-32.0 [facility] Comment on above: Performed By: #### P T, PTT #### [facility] [address] [address] [address] Xiomy Lennon Creatinine [Mass/Vol] 0.78 mg/dL Normal 0.55-1.02 [facility] Comment on above: Performed By: #### P T, PTT #### [facility] [address] [address] [address] Xiomy Lennon EGFR-AF COMORAN >60 Normal >=60 [facility] Comment on above: Performed By: #### P T, PTT #### [facility] [address] [address] [address] Xiomy Lennon EGFR-NON AF COMORAN >60 Normal >=60 [facility] Comment on above: Performed By: #### P T, PTT #### [facility] [address] [address] [address] Xiomy Lennon Glucose [Mass/Vol] 111 mg/dL Critically high 74-106 [facility] Comment on above: Performed By: #### P T, PTT #### [facility] [address] [address] [address] Xiomy Lennon Potassium [Moles/Vol] 3.9 mmol/L Normal 3.5-5.1 [facility] Comment on above: Performed By: #### P T, PTT #### [facility] [address] [address] [address] Xiomy Lennon Sodium [Moles/Vol] 136 mmol/L Normal 136-145 [facility] Comment on above: Performed By: #### P T, PTT #### [facility] [address] [address] [address] Xiomy Lennon Urea nitrogen [Mass/Vol] 10.0 mg/dL Normal 7.0-18.0 [facility] Comment on above: Performed By: #### P T, PTT #### [facility] [address] [address] [address] Xiomy Lennon Urea nitrogen/Creatinine [Mass ratio] 12.8 mg/mg Normal [facility] Comment on above: Performed By: #### P T, PTT #### [facility] [address] [address] [address] Xiomy Lennon MG MAMM SCREEN 3D EMY CADon 04-30-2022 MG MAMM SCREEN 3D EMY CAD Patient: ALIYA MOORE Exam Date: 04/30/2022 : 1965 Gender:F Ordering : ENRIQUE BREA [facility] Admission #: [id number] Family : Order #: [id number] CLICK HERE TO VIEW EXAM RADIOLOGY REPORT [...] Treatments None Family Cancers None LOCATION: [facility] BREAST COMPOSITION: Almost entirely fatty. FINDINGS: [...] MD on 04/30/2022 at 10:06 Normal [facility] CBC AUTO DIFFon 03-26-2022 BASO # 0.0 103/ul Normal 0.0-0.1 [facility] Comment on above: Performed By: #### P T, PTT #### [facility] [address] [address] [address] Xiomy Lennon Basophils/100 WBC (Bld) 0.2 % Normal 0.2-2.0 [facility] Comment on above: Performed By: #### P T, PTT #### [facility] [address] [address] [address] Xiomy Lennon EO # 0.2 103/ul Normal 0.0-0.7 [facility] Comment on above: Performed By: #### P T, PTT #### [facility] [address] [place] [address] Dr. Xiomy Lennon Eosinophils/100 WBC (Bld) 1.7 % Normal 0.9-7.0 [facility] Comment on above: Performed By: #### P T, PTT #### [facility] [address] [place] [address] Dr. Xiomy Lennon Erythrocyte distribution width (RBC) [Ratio] 15.6 % Critically high 11.0-15.0 [facility] Comment on above: Performed By: #### P T, PTT #### [facility] [address] [place] [address] Dr. Xiomy Lennon Hematocrit (Bld) [Volume fraction] 43.4 % Normal 36.0-48.0 [facility] Comment on above: Performed By: #### P T, PTT #### [facility] [address] [place] [address] Dr. Xiomy Lennon Hemoglobin (Bld) [Mass/Vol] 14.0 g/dL Normal 12.0-16.0 [facility] Comment on above: Performed By: #### P T, PTT #### [facility] [address] [place] [address] Dr. Xiomy Lennon IG # 0.04 10e3/ul Critically high 0.00-0.03 [facility] Comment on above: Performed By: #### P T, PTT #### [facility] [address] [place] [address] Dr. Xiomy Lennon IG % 0.4 % Normal 0.0-0.5 [facility] Comment on above: Performed By: #### P T, PTT #### [facility] [address] [place] [address] Dr. Xiomy Lennon LYMPH # 1.2 103/ul Normal 1.2-3.8 [facility] Comment on above: Performed By: #### P T, PTT #### [facility] [address] [place] [address] Dr. Xiomy Lennon Lymphocytes/100 WBC (Bld) 11.4 % Critically low 20.5-60.0 [facility] Comment on above: Performed By: #### P T, PTT #### [facility] [address] [place] [address] Dr. Xiomy Lennon MANUAL DIFF REQ NO Normal [facility] Comment on above: Performed By: #### P T, PTT #### [facility] [address] [place] [address] Dr. Xiomy Lennon MCH (RBC) [Entitic mass] 29.7 pg Normal 26.7-34.0 [facility] Comment on above: Performed By: #### P T, PTT #### [facility] [address] [place] [address] Dr. Xiomy Lennon MCHC (RBC) [Mass/Vol] 32.3 g/dL Normal 29.9-35.2 [facility] Comment on above: Performed By: #### P T, PTT #### [facility] [address] [place] [address] Dr. Xiomy Lennon MCV (RBC) [Entitic vol] 92.1 fL Normal 81.0-99.0 [facility] Comment on above: Performed By: #### P T, PTT #### [facility] [address] [place] [address] Dr. Xiomy Lennon MONO # 0.8 103/ul Normal 0.3-0.8 [facility] Comment on above: Performed By: #### P T, PTT #### [facility] [address] [place] [address] Dr. Xiomy Lennon Monocytes/100 WBC (Bld) 7.9 % Normal 1.7-12.0 [facility] Comment on above: Performed By: #### P T, PTT #### [facility] [address] [place] [address] Dr. Xiomy Lennon NEUT # 8.3 103/ul Critically high 1.4-6.5 [facility] Comment on above: Performed By: #### P T, PTT #### [facility] [address] [place] [address] Dr. Xiomy Lennon Neutrophils/100 WBC (Bld) 78.4 % Critically high 43.0-75.0 [facility] Comment on above: Performed By: #### P T, PTT #### [facility] [address] [address] [address] Xiomy Lennon Platelet mean volume (Bld) [Entitic vol] 11.0 fL Normal 9.5-13.5 [facility] Comment on above: Performed By: #### P T, PTT #### [facility] [address] [place] [address] Dr. Xiomy Lennon PLT 196 103/ul Normal 150-450 [facility] Comment on above: Performed By: #### P T, PTT #### [facility] [address] [place] [address] Dr. Xiomy Lennon RBC 4.71 106/ul Normal 4.20-5.40 [facility] Comment on above: Performed By: #### P T, PTT #### [facility] [address] [place] [address] Dr. Xiomy Lennon WBC 10.6 103/ul Normal 4.0-11.0 [facility] Comment on above: Performed By: #### P T, PTT #### [facility] [address] [place] [address] Dr. Xiomy Lennon LIPASEon 03-26-2022 Lipase [Catalytic activity/Vol] 92.0 U/L Normal 73.0-393.0 [facility] Comment on above: Performed By: #### P T, PTT #### [facility] [address] [place] [address] Dr. Xiomy Lennon PROF 14(COMP METB)on 022 Albumin [Mass/Vol] 3.6 g/dL Normal 3.4-5.0 [facility] Comment on above: Performed By: #### P T, PTT #### [facility] [address] [place] [address] Dr. Xiomy Lennon Albumin/Globulin [Mass ratio] 0.7 {ratio} Normal [facility] Comment on above: Performed By: #### P T, PTT #### [facility] [address] [address] [address] Xiomy Lennon ALP [Catalytic activity/Vol] 78 U/L Normal 46-116 [facility] Comment on above: Performed By: #### P T, PTT #### [facility] [address] [address] [address] Xiomy Lennon ALT [Catalytic activity/Vol] 25 U/L Normal 14-59 [facility] Comment on above: Performed By: #### P T, PTT #### [facility] [address] [address] [address] Xiomy Lennon Anion gap [Moles/Vol] 9.4 mmol/L Normal [facility] Comment on above: Performed By: #### P T, PTT #### [facility] [address] [address] [address] Xiomy Lennon AST [Catalytic activity/Vol] 19 U/L Normal 15-37 [facility] Comment on above: Performed By: #### P T, PTT #### [facility] [address] [address] [address] Xiomy Lennon Bilirubin [Mass/Vol] 0.3 mg/dL Normal 0.2-1.0 [facility] Comment on above: Performed By: #### P T, PTT #### [facility] [address] [address] [address] Xiomy Lennon Calcium [Mass/Vol] 9.9 mg/dL Normal 8.5-10.1 [facility] Comment on above: Performed By: #### P T, PTT #### [facility] [address] [address] [address] Xiomy Lennon Chloride [Moles/Vol] 96 mmol/L Critically low 98-107 [facility] Comment on above: Performed By: #### P T, PTT #### [facility] [address] [address] [address] Xiomy Lennon CO2 [Moles/Vol] 34.6 mmol/L Critically high 21.0-32.0 [facility] Comment on above: Performed By: #### P T, PTT #### [facility] [address] [address] [address] Xiomy Lennon Creatinine [Mass/Vol] 0.93 mg/dL Normal 0.55-1.02 [facility] Comment on above: Performed By: #### P T, PTT #### [facility] [address] [address] [address] Xiomy Lennon EGFR-AF COMORAN >60 Normal >=60 [facility] Comment on above: Performed By: #### P T, PTT #### [facility] [address] [address] [address] Xiomy Lennon EGFR-NON AF COMORAN >60 Normal >=60 [facility] Comment on above: Performed By: #### P T, PTT #### [facility] [address] [place] [address] Dr. Xiomy Lennon Globulin (S) [Mass/Vol] 5.0 g/dL Normal [facility] Comment on above: Performed By: #### P T, PTT #### [facility] [address] [address] [address] Xiomy Lennon Glucose [Mass/Vol] 139 mg/dL Critically high 74-106 [facility] Comment on above: Performed By: #### P T, PTT #### [facility] [address] [place] [address] Dr. Xiomy Lennon Potassium [Moles/Vol] 4.0 mmol/L Normal 3.5-5.1 [facility] Comment on above: Performed By: #### P T, PTT #### [facility] [address] [address] [address] Xiomy Lennon Protein [Mass/Vol] 8.6 g/dL Critically high 6.4-8.2 [facility] Comment on above: Performed By: #### P T, PTT #### [facility] [address] [address] [address] Xiomy Lennon Sodium [Moles/Vol] 136 mmol/L Normal 136-145 [facility] Comment on above: Performed By: #### P T, PTT #### [facility] [address] [place] [address] Dr. Xiomy Lennon Urea nitrogen [Mass/Vol] 19.0 mg/dL Critically high 7.0-18.0 [facility] Comment on above: Performed By: #### P T, PTT #### [facility] [address] [place] [address] Dr. Xiomy Lennon Urea nitrogen/Creatinine [Mass ratio] 20.4 mg/mg Normal [facility] Comment on above: Performed By: #### P T, PTT #### [facility] [address] [place] [address] Dr. Xiomy Lennon PROTIMEon 03-26-2022 INR Coag (PPP) [Relative time] 0.99 {INR} Normal [facility] Comment on above: Performed By: #### P T, PTT #### [facility] [address] [place] [address] Dr. Xiomy Lennon INR GUIDELINES SEE BELOW Normal [facility] Comment on above: Result Comment: NIALL RED INR: 2.0 - 3.0 CONDITIONS NOT LISTED BELOW 2.5 - 3.5 FOR PROSTHETIC HEART VALVE REPLACEMENT 2.5 - 3.5 RECURRENT THROMBOSIS Performed By: #### P T, PTT #### [facility] [address] [place] [address] Dr. Xiomy Lennon PT Coag (PPP) [Time] 10.7 s Normal 9.0-11.6 [facility] Comment on above: Performed By: #### P T, PTT #### [facility] [address] [place] [address] Dr. Xiomy Lennon PTTon 03-26-2022 aPTT Coag (Bld) [Time] 26.9 s Normal 22.3-36.2 [facility] Comment on above: Performed By: #### P T, PTT #### [facility] [address] [place] [address] Dr. Xiomy Lennon TROPONIN, HIGH SENSITIVITYon 03-26-2022 HSTROP 8.0 pg/mL Normal 4.0-51.3 [facility] Comment on above: Result Comment: CUT- OFF POINTS HAVE BEEN ESTABLISHED BASED ON THE FOURTH UNIVERSAL DEFINITIONS OF MYOCARDIAL INFARCTION. THE UPPER REFERENCE LIMIT (URL) OF TROPONIN, DEFINED THE 99TH PERCENTILE OF cTnI DISTRIBUTION IN A REFERENCE POPULATION, HAS BEEN CONFIRMED THE DECISION THRESHOLD FOR [place] DIAGNOSIS. Performed By: #### P T, PTT #### [facility] [address], [place] [address] Dr. Xiomy Lennon US SINGLE QUAD RT [...] KENDY HERRERA Date: 2022-03-26 19:58 Normal [facility] Basic Metabolic Panelon 07-01 Calcium [Mass/Vol] 9.3 mg/dL Normal 8.2-10.2 [facility] Comment on above: Performed By: #### C OVID 19 [facility], COVID-19 VALDEMAR, SOFIANEG #### [facility] [address] [place] [address] [place] Chloride [Moles/Vol] 89 mmol/L Low 95-114 [facility] Comment on above: Performed By: #### C OVID 19 [facility], COVID-19 VALDEMAR, SOFIANEG #### [facility] [address] [place] [address] [place] CO2 [Moles/Vol] 35.4 mmol/L High 22.0-30.0 [facility] Comment on above: Performed By: #### C OVID 19 [facility], COVID-19 VALDEMAR, SOFIANEG #### [facility] [address] [place] [address] [place] Creatinine [Mass/Vol] 0.81 mg/dL Normal 0.44-1.03 [facility] Comment on above: Performed By: #### C OVID 19 [facility], COVID-19 VALDEMAR, SOFIANEG #### [facility] [address] [place] [address] [place] Creatinine Clr Calc Pharmacy 107.64 [facility] Comment on above: Performed By: #### C OVID 19 [facility], COVID-19 VALDEMAR, SOFIANEG #### [facility] [address] [id number] [place] Estimated GFR ( Hilary > 60 [facility] Comment on above: Result Comment: GFR estimated reference range: According to KDOQI guidelines, <60 ml/min/1.73m2 is sufficient to diagnose a patient with chronic kidney disease. Performed By: #### C OVID 19 [facility], COVID-19 VALDEMAR, SOFIANEG #### [facility] [address] [id number] [place] Estimated GFR (Non- Am > 60 [facility] Comment on above: Performed By: #### C DRAKE 19 [facility], COVID-19 VALDEMAR, SOFIANEG #### [facility] [address] [id number] [place] Glucose [Mass/Vol] 94 mg/dL Normal 70-100 [facility] Comment on above: Result Comment: [place] Glucose Reference Range is dependent on time and content of last meal. Glucose of more than 200 mg/dL in a nonstressed, ambulatory subject supports the diagnosis of Diabetes Mellitus. ADA recommended reference range Performed By: #### C OVID 19 [facility], COVID-19 VALDEMAR, SOFIANEG #### [facility] [address] [place] [address] [place] Potassium Normal 3.5-5.1 [facility] Comment on above: Result Comment: Spec imen hemolyzed, redraw requested Performed By: #### C OVID 19 [facility], COVID-19 [place], SOFIANEG #### [facility] [address] [id number] [place] Sodium [Moles/Vol] 135 mmol/L Low 136-146 [facility] Comment on above: Performed By: #### C OVID 19 [facility], COVID-19 [place], SOFIANEG #### [facility] [address] Urea nitrogen [Mass/Vol] 19 mg/dL Normal 9- [facility] Comment on above: Performed By: #### C OVID 19 [facility], COVID-19 [place], SOFIANEG #### [address] Complete Blood Count Auto Di ffon 07-14-2021 Basophils (Bld) [#/Vol] 0.0 10*3/uL Normal 0.0-0.2 [facility] Comment on above: Result Comment: PERF ORMED BY: [place] [address] PATHOLOGIST WAGE ANALYST OTILIA BAIRD M.D. Performed By: #### C BC, LACTIC, HS TROP, BMP #### [address] Basophils/100 WBC (Bld) 0.5 % Normal . [facility] Comment on above: Performed By: #### C BC, LACTIC, HS TROP, BMP #### [address] Eosinophils (Bld) [#/Vol] 0.1 10*3/uL Normal 0.0-0.45 [facility] Comment on above: Performed By: #### C BC, LACTIC, HS TROP, BMP #### [address] Eosinophils/100 WBC (Bld) 0.9 % Normal . [facility] Comment on above: Performed By: #### C BC, LACTIC, HS TROP, BMP #### [address] Erythrocyte distribution width (RBC) [Ratio] 18.2 % High 11.9-15.3 [facility] Comment on above: Performed By: #### C BC, LACTIC, HS TROP, BMP #### [address] Hematocrit (Bld) [Volume fraction] 41.6 % Normal 34.0-46.4 [facility] Comment on above: Performed By: #### C BC, LACTIC, HS TROP, BMP #### [facility] [address] Hemoglobin (Bld) [Mass/Vol] 13.8 g/dL Normal 11.8-15.4 [facility] Comment on above: Performed By: #### C BC, LACTIC, HS TROP, BMP #### [address] Lymphocytes (Bld) [#/Vol] 1.5 10*3/uL Normal 1.00-4.8 [facility] Comment on above: Performed By: #### C BC, LACTIC, HS TROP, BMP #### [address] Lymphocytes/100 WBC (Bld) 20.5 % Normal . [facility] Comment on above: Performed By: #### C BC, LACTIC, HS TROP, BMP #### [address] MCH (RBC) [Entitic mass] 29.0 pg Normal 24.7-34.3 [facility] Comment on above: Performed By: #### C BC, LACTIC, HS TROP, BMP #### [address] MCV (RBC) [Entitic vol] 87.8 fL Normal 80-100 [facility] Comment on above: Performed By: #### C BC, LACTIC, HS TROP, BMP #### [address] Mean Corpuscular HGB Conc 33.0 g/dL Normal 32.0-35.0 [facility] Comment on above: Performed By: #### C BC, LACTIC, HS TROP, BMP #### [place] [address] [place] Monocytes (Bld) [#/Vol] 0.8 10*3/uL Normal 0.0-0.8 [facility] Comment on above: Performed By: #### C BC, LACTIC, HS TROP, BMP #### [address] Monocytes/100 WBC (Bld) 11.4 % Normal . [facility] Comment on above: Performed By: #### C BC, LACTIC, HS TROP, BMP #### [address] Neutrophils (Bld) [#/Vol] 4.8 10*3/uL Normal 1.8-7.7 [facility] Comment on above: Performed By: #### C BC, LACTIC, HS TROP, BMP #### [address] Neutrophils/100 WBC (Bld) 66.7 % Normal . [facility] Comment on above: Performed By: #### C BC, LACTIC, HS TROP, BMP #### [address] Nucleated RBC/100 WBC (Bld) [Ratio] 0.1 % Normal 0-0.5 [facility] Comment on above: Performed By: #### C BC, LACTIC, HS TROP, BMP #### [address] Platelet mean volume (Bld) [Entitic vol] 9.5 fL Normal 6.3-10.7 [facility] Comment on above: Performed By: #### C BC, LACTIC, HS TROP, BMP #### [place] [address] [place] Platelets (Bld) [#/Vol] 153 10*3/uL Normal 150-450 [facility] Comment on above: Performed By: #### C BC, LACTIC, HS TROP, BMP #### [address] RBC (Bld) [#/Vol] 4.74 10*6/uL Normal 3.60-5.00 [facility] Comment on above: Performed By: #### C BC, LACTIC, HS TROP, BMP #### [facility] [address] WBC (Bld) [#/Vol] 7.1 10*3/uL Normal 4.5-11.0 [facility] Comment on above: Performed By: #### C BC, LACTIC, HS TROP, BMP #### [facility] [address] Glucose Poct Glucometerson 0 07-14-2021 Commemt1 Glu2: Cleaned Meter [facility] Comment on above: Result Comment: PERF ORMED BY: [place] [address] PATHOLOGIST WAGE ANALYST OTILIA BAIRD M.D. Performed By: #### C DRAKE 19 [facility], COVID-19 VAL[place], SOFIANEG #### [place] [address] [place] Glucose [Mass/Vol] 130 mg/dL Normal [facility] Comment on above: Result Comment: [place] om Glucose Reference Range is dependent on time and content of last meal. Glucose of more than 200 mg/dL in a nonstressed, ambulatory subject supports the diagnosis of Diabetes Mellitus. Performed By: #### C OVID 19 [facility], COVID-19 [place], SOFIANEG #### [address] Commemt1 Glu2: Cleaned Meter [facility] Comment on above: Result Comment: PERF ORMED BY: [place] [address] PATHOLOGIST WAGE ANALYST OTILIA BAIRD M.D. Performed By: #### C BC, LACTIC, HS TROP, BMP #### [place] [address] [place] Glucose [Mass/Vol] 102 mg/dL Normal [facility] Comment on above: Result Comment: [place] om Glucose Reference Range is dependent on time and content of last meal. Glucose of more than 200 mg/dL in a nonstressed, ambulatory subject supports the diagnosis of Diabetes Mellitus. Performed By: #### C BC, LACTIC, HS TROP, BMP #### [address] Commemt1 Glu2: Cleaned Meter Normal [facility] Comment on above: Result Comment: PERF ORMED BY: [place] [address] PATHOLOGIST WAGE ANALYST OTILIA BAIRD M.D. Performed By: #### C BC, LACTIC, HS TROP, BMP #### [address] Glucose [Mass/Vol] 130 mg/dL Normal [facility] Comment on above: Result Comment: [facility] Glucose Reference Range is dependent on time and content of last meal. Glucose of more than 200 mg/dL in a nonstressed, ambulatory subject supports the diagnosis of Diabetes Mellitus. Performed By: #### C BC, LACTIC, HS TROP, BMP #### [address] Magnesiumon 07-14-2021 Magnesium Normal 1.6-2.6 [facility] Comment on above: Result Comment: Spec imen hemolyzed, redraw requested PERFORMED BY: [place] [address] PATHOLOGIST WAGE ANALYST OTILIA BAIRD M.D. Performed By: #### C OVID 19 [facility], COVID-19 [place], SOFIANEG #### [address] Redraw Magnesiumon 1 Magnesium [Mass/Vol] 1.9 mg/dL Normal 1.6-2.6 [facility] Comment on above: Order Comment: Speci men hemolyzed, redraw requested Result Comment: PERF ORMED BY: [place] [address] PATHOLOGIST WAGE ANALYST OTILIA BAIRD M.D. Performed By: #### C OVID 19 [facility], COVID-19 [place], SOFIANEG #### [address] Redraw Potassiumon 09-14-202 1 Potassium [Moles/Vol] 3.7 mmol/L Normal 3.5-5.1 [facility] Comment on above: Order Comment: Speci men hemolyzed, redraw requested Performed By: #### C OVID 19 [facility], COVID-19 [place], SOFIANEG #### [facility] [address] Basic Metabolic Panelon 07-01 Calcium [Mass/Vol] 9.3 mg/dL Normal 8.2-10.2 [facility] Comment on above: Performed By: #### C BC, LACTIC, HS TROP, BMP #### [facility] [address] Chloride [Moles/Vol] 92 mmol/L Low 95-114 [facility] Comment on above: Performed By: #### C BC, LACTIC, HS TROP, BMP #### [facility] [address] CO2 [Moles/Vol] 37.7 mmol/L High 22.0-30.0 [facility] Comment on above: Performed By: #### C BC, LACTIC, HS TROP, BMP #### [facility] [address] Creatinine [Mass/Vol] 0.80 mg/dL Normal 0.44-1.03 [facility] Comment on above: Performed By: #### C BC, LACTIC, HS TROP, BMP #### [facility] [address] [place] [address] [place] Creatinine Clr Calc Pharmacy 105.32 [facility] Comment on above: Result Comment: PERF ORMED BY: [place] [address] PATHOLOGIST WAGE ANALYST OTILIA BAIRD M.D. Performed By: #### C BC, LACTIC, HS TROP, BMP #### [facility] [address] Estimated GFR ( Hilary > 60 Normal [facility] Comment on above: Result Comment: GFR estimated reference range: According to KDOQI guidelines, <60 ml/min/1.73m2 is sufficient to diagnose a patient with chronic kidney disease. Performed By: #### C BC, LACTIC, HS TROP, BMP #### [facility] [address] Estimated GFR (Non- Am > 60 Normal [facility] Comment on above: Performed By: #### C BC, LACTIC, HS TROP, BMP #### [facility] [address] Glucose [Mass/Vol] 94 mg/dL Normal 70-100 [facility] Comment on above: Result Comment: [place] Glucose Reference Range is dependent on time and content of last meal. Glucose of more than 200 mg/dL in a nonstressed, ambulatory subject supports the diagnosis of Diabetes Mellitus. ADA recommended reference range Performed By: #### C BC, LACTIC, HS TROP, BMP #### [address] Potassium [Moles/Vol] 3.6 mmol/L Normal 3.5-5.1 [facility] Comment on above: Performed By: #### C BC, LACTIC, HS TROP, BMP #### [place] [address] [place] Sodium [Moles/Vol] 139 mmol/L Normal 136-146 [facility] Comment on above: Performed By: #### C BC, LACTIC, HS TROP, BMP #### [place] [address] [place] Urea nitrogen [Mass/Vol] 18 mg/dL Normal 9-23 [facility] Comment on above: Performed By: #### C BC, LACTIC, HS TROP, BMP #### [facility] [address] [place] [address] Glucose Poct Glucometerson 0 07-13-2021 Commemt1 Glu2: Cleaned Meter Normal [facility] Comment on above: Result Comment: PERF ORMED BY: [place] [address] PATHOLOGIST WAGE ANALYST OTILIA BAIRD M.D. Performed By: #### C BC, LACTIC, HS TROP, BMP #### [facility] [address] [id number] [facility] Glucose [Mass/Vol] 180 mg/dL Normal [facility] Comment on above: Result Comment: [place] om Glucose Reference Range is dependent on time and content of last meal. Glucose of more than 200 mg/dL in a nonstressed, ambulatory subject supports the diagnosis of Diabetes Mellitus. Performed By: #### C BC, LACTIC, HS TROP, BMP #### [facility] [address] Commemt1 Glu2: Cleaned Meter Normal [facility] Comment on above: Result Comment: PERF ORMED BY: [place] [address] PATHOLOGIST WAGE ANALYST OTILIA BAIRD M.D. Performed By: #### C BC, LACTIC, HS TROP, BMP #### [address] Glucose [Mass/Vol] 128 mg/dL Normal [facility] Comment on above: Result Comment: [place] om Glucose Reference Range is dependent on time and content of last meal. Glucose of more than 200 mg/dL in a nonstressed, ambulatory subject supports the diagnosis of Diabetes Mellitus. Performed By: #### C BC, LACTIC, HS TROP, BMP #### [address] Glucose [Mass/Vol] 95 mg/dL Normal [facility] Comment on above: Result Comment: [place] om Glucose Reference Range is dependent on time and content of last meal. Glucose of more than 200 mg/dL in a nonstressed, ambulatory subject supports the diagnosis of Diabetes Mellitus. PERFORMED BY: [place] [address] PATHOLOGIST WAGE ANALYST OTILIA BAIRD M.D. Performed By: #### C BC, LACTIC, HS TROP, BMP #### [facility] [address] [id number] [facility] Basic Metabolic Panelon 07-01 Calcium [Mass/Vol] 9.3 mg/dL Normal 8.2-10.2 [facility] Comment on above: Performed By: #### C BC, LACTIC, HS TROP, BMP #### [facility] [address] [place] [address] [place] Chloride [Moles/Vol] 86 mmol/L Low 95-114 [facility] Comment on above: Performed By: #### C BC, LACTIC, HS TROP, BMP #### [address] CO2 [Moles/Vol] 43.4 mmol/L High 22.0-30.0 [facility] Comment on above: Performed By: #### C BC, LACTIC, HS TROP, BMP #### [address] Creatinine [Mass/Vol] 0.86 mg/dL Normal 0.44-1.03 [facility] Comment on above: Performed By: #### C BC, LACTIC, HS TROP, BMP #### [place] [address] [place] Creatinine Clr Calc Pharmacy 103.59 [facility] Comment on above: Result Comment: PERF ORMED BY: [place] [address] PATHOLOGIST WAGE ANALYST OTILIA BAIRD M.D. Performed By: #### C BC, LACTIC, HS TROP, BMP #### [address] Estimated GFR ( Hilary > 60 [facility] Comment on above: Result Comment: GFR estimated reference range: According to KDOQI guidelines, <60 ml/min/1.73m2 is sufficient to diagnose a patient with chronic kidney disease. Performed By: #### C BC, LACTIC, HS TROP, BMP #### [place] [address] [place] Estimated GFR (Non- Am > 60 [facility] Comment on above: Performed By: #### C BC, LACTIC, HS TROP, BMP #### [place] [address] [place] Glucose [Mass/Vol] 94 mg/dL Normal 70-100 [facility] Comment on above: Result Comment: [place] om Glucose Reference Range is dependent on time and content of last meal. Glucose of more than 200 mg/dL in a nonstressed, ambulatory subject supports the diagnosis of Diabetes Mellitus. ADA recommended reference range Performed By: #### C BC, LACTIC, HS TROP, BMP #### [facility] [address] [id number] [facility] Potassium [Moles/Vol] 3.6 mmol/L Normal 3.5-5.1 [facility] Comment on above: Performed By: #### C BC, LACTIC, HS TROP, BMP #### [facility] [address] Sodium [Moles/Vol] 139 mmol/L Normal 136-146 [facility] Comment on above: Performed By: #### C BC, LACTIC, HS TROP, BMP #### [facility] [address] [id number] [place] Urea nitrogen [Mass/Vol] 18 mg/dL Normal 9- [facility] Comment on above: Performed By: #### C BC, LACTIC, HS TROP, BMP #### [facility] [address] Glucose Poct Glucometerson 0 07-12-2021 Glucose [Mass/Vol] 138 mg/dL Normal [facility] Comment on above: Result Comment: [place] om Glucose Reference Range is dependent on time and content of last meal. Glucose of more than 200 mg/dL in a nonstressed, ambulatory subject supports the diagnosis of Diabetes Mellitus. PERFORMED BY: [place] [address] PATHOLOGIST WAGE ANALYST OTILIA BAIRD M.D. Performed By: #### C BC, LACTIC, HS TROP, BMP #### [facility] [address] [place] [address] [place] Commemt1 Glu2: Cleaned Meter Normal [facility] Comment on above: Result Comment: PERF ORMED BY: [facility] [address] [facility] [address] PATHOLOGIST WAGE ANALYST OTILIA BAIRD M.D. Performed By: #### C BC, LACTIC, HS TROP, BMP #### [facility] [address] [place] [address] [place] Glucose [Mass/Vol] 255 mg/dL Normal [facility] Comment on above: Result Comment: [place] om Glucose Reference Range is dependent on time and content of last meal. Glucose of more than 200 mg/dL in a nonstressed, ambulatory subject supports the diagnosis of Diabetes Mellitus. Performed By: #### C BC, LACTIC, HS TROP, BMP #### [address] Commemt1 Glu2: Cleaned Meter [facility] Comment on above: Result Comment: PERF ORMED BY: [place] [address] PATHOLOGIST WAGE ANALYST OTILIA BAIRD M.D. Performed By: #### C BC, LACTIC, HS TROP, BMP #### [address] Glucose [Mass/Vol] 133 mg/dL Normal [facility] Comment on above: Result Comment: [place] om Glucose Reference Range is dependent on time and content of last meal. Glucose of more than 200 mg/dL in a nonstressed, ambulatory subject supports the diagnosis of Diabetes Mellitus. Performed By: #### C BC, LACTIC, HS TROP, BMP #### [address] Commemt1 Glu2: Cleaned Meter [facility] Comment on above: Result Comment: PERF ORMED BY: [place] [address] PATHOLOGIST WAGE ANALYST OTILIA BAIRD M.D. Performed By: #### C BC, LACTIC, HS TROP, BMP #### [place] [address] [place] Glucose [Mass/Vol] 100 mg/dL Normal [facility] Comment on above: Result Comment: [place] om Glucose Reference Range is dependent on time and content of last meal. Glucose of more than 200 mg/dL in a nonstressed, ambulatory subject supports the diagnosis of Diabetes Mellitus. Performed By: #### C BC, LACTIC, HS TROP, BMP #### [address] Basic Metabolic Panelon 07-01 Calcium [Mass/Vol] 9.5 mg/dL Normal 8.2-10.2 [facility] Comment on above: Performed By: #### C BC, LACTIC, HS TROP, BMP #### [facility] [address] Chloride [Moles/Vol] 85 mmol/L Low 95-114 [facility] Comment on above: Performed By: #### C BC, LACTIC, HS TROP, BMP #### [address] CO2 [Moles/Vol] 39.6 mmol/L High 22.0-30.0 [facility] Comment on above: Performed By: #### C BC, LACTIC, HS TROP, BMP #### [address] Creatinine [Mass/Vol] 0.99 mg/dL Normal 0.44-1.03 [facility] Comment on above: Performed By: #### C BC, LACTIC, HS TROP, BMP #### [address] Creatinine Clr Calc Pharmacy 89.99 [facility] Comment on above: Result Comment: PERF ORMED BY: [place] [address] PATHOLOGIST WAGE ANALYST OTILIA BAIRD M.D. Performed By: #### C BC, LACTIC, HS TROP, BMP #### [address] Estimated GFR ( Hilary > 60 Normal [facility] Comment on above: Result Comment: GFR estimated reference range: According to KDOQI guidelines, <60 ml/min/1.73m2 is sufficient to diagnose a patient with chronic kidney disease. Performed By: #### C BC, LACTIC, HS TROP, BMP #### [address] [place] [address] [place] Estimated GFR (Non- Am 58 Normal [facility] Comment on above: Performed By: #### C BC, LACTIC, HS TROP, BMP #### [facility] [address] Glucose [Mass/Vol] 189 mg/dL High 70-100 [facility] Comment on above: Result Comment: [place] om Glucose Reference Range is dependent on time and content of last meal. Glucose of more than 200 mg/dL in a nonstressed, ambulatory subject supports the diagnosis of Diabetes Mellitus. ADA recommended reference range Performed By: #### C BC, LACTIC, HS TROP, BMP #### [facility] [address] [place] [address] Potassium [Moles/Vol] 4.3 mmol/L Normal 3.5-5.1 [facility] Comment on above: Performed By: #### C BC, LACTIC, HS TROP, BMP #### [address] Sodium [Moles/Vol] 135 mmol/L Low 136-146 [facility] Comment on above: Performed By: #### C BC, LACTIC, HS TROP, BMP #### [facility] [address] [place] [address] Urea nitrogen [Mass/Vol] 21 mg/dL Normal - [facility] Comment on above: Performed By: #### C BC, LACTIC, HS TROP, BMP #### [facility] [address] [place] [address] Glucose Poct Glucometerson 0 07-11-2021 Commemt1 Glu2: Cleaned Meter Normal [facility] Comment on above: Result Comment: PERF ORMED BY: [place] [address] PATHOLOGIST WAGE ANALYST OTILIA BAIRD M.D. Performed By: #### C BC, LACTIC, HS TROP, BMP #### [facility] [address] [place] [address] Glucose [Mass/Vol] 202 mg/dL Normal [facility] Comment on above: Result Comment: [place] om Glucose Reference Range is dependent on time and content of last meal. Glucose of more than 200 mg/dL in a nonstressed, ambulatory subject supports the diagnosis of Diabetes Mellitus. Performed By: #### C BC, LACTIC, HS TROP, BMP #### [address] Commemt1 Glu2: Cleaned Meter [facility] Comment on above: Result Comment: PERF ORMED BY: [place] [address] PATHOLOGIST WAGE ANALYST OTILIA BAIRD M.D. Performed By: #### C BC, LACTIC, HS TROP, BMP #### [address] Glucose [Mass/Vol] 249 mg/dL Normal [facility] Comment on above: Result Comment: [place] om Glucose Reference Range is dependent on time and content of last meal. Glucose of more than 200 mg/dL in a nonstressed, ambulatory subject supports the diagnosis of Diabetes Mellitus. Performed By: #### C BC, LACTIC, HS TROP, BMP #### [address] Commemt1 Glu2: Cleaned Meter [facility] Comment on above: Result Comment: PERF ORMED BY: [place] [address] PATHOLOGIST WAGE ANALYST OTILIA BAIRD M.D. Performed By: #### C BC, LACTIC, HS TROP, BMP #### [place] [address] [place] Glucose [Mass/Vol] 141 mg/dL Normal [facility] Comment on above: Result Comment: [place] om Glucose Reference Range is dependent on time and content of last meal. Glucose of more than 200 mg/dL in a nonstressed, ambulatory subject supports the diagnosis of Diabetes Mellitus. Performed By: #### C BC, LACTIC, HS TROP, BMP #### [address] Commemt1 Glu2: Cleaned Meter [facility] Comment on above: Result Comment: PERF ORMED BY: [place] [address] PATHOLOGIST WAGE ANALYST OTILIA BAIRD M.D. Performed By: #### C BC, LACTIC, HS TROP, BMP #### [address] Glucose [Mass/Vol] 103 mg/dL Normal [facility] Comment on above: Result Comment: [facility] Glucose Reference Range is dependent on time and content of last meal. Glucose of more than 200 mg/dL in a nonstressed, ambulatory subject supports the diagnosis of Diabetes Mellitus. Performed By: #### C BC, LACTIC, HS TROP, BMP #### [address] Arterial Blood Gason 021 ABG Base Excess 17.0 mmol/L High -3.0-3.0 [facility] Comment on above: Performed By: #### C BC, LACTIC, HS TROP, BMP #### [address] ABG Frac Inspired O2 60 % Normal [facility] Comment on above: Performed By: #### C BC, LACTIC, HS TROP, BMP #### [address] ABG Oxygen Content 7.6 mmol/L Normal 6.6-9.7 [facility] Comment on above: Performed By: #### C BC, LACTIC, HS TROP, BMP #### [address] ABG Oxygen Saturation 94.3 % Low 95.0-100.0 [facility] Comment on above: Performed By: #### C BC, LACTIC, HS TROP, BMP #### [address] ABG PCO2 90.7 mm[Hg] Off scale high 35.0-45.0 [facility] Comment on above: Performed By: #### C BC, LACTIC, HS TROP, BMP #### [address] ABG PH 7.34 Low 7.35-7.45 [facility] Comment on above: Performed By: #### C BC, LACTIC, HS TROP, BMP #### [address] ABG PO2 77.7 mm[Hg] Low 80.0-100.0 [facility] Comment on above: Performed By: #### C BC, LACTIC, HS TROP, BMP #### [address] CO2 [Moles/Vol] 50.1 mmol/L High 23.0-27.0 [facility] Comment on above: Performed By: #### C BC, LACTIC, HS TROP, BMP #### [address] HCO3 (Bld) [Moles/Vol] 47.3 mmol/L High 23.0-29.0 [facility] Comment on above: Performed By: #### C BC, LACTIC, HS TROP, BMP #### [address] Respiratory Critical [facility] Comment on above: Result Comment: Crit ical Value called on: 07/10/2021 at 05:01 PERFORMED BY: [place] [address] PATHOLOGIST WAGE ANALYST OTILIA BAIRD M.D. Performed By: #### C BC, LACTIC, HS TROP, BMP #### [address] Set Respiratory Rate 12 Normal [facility] Comment on above: Performed By: #### C BC, LACTIC, HS TROP, BMP #### [address] VBG Draw Site Right Radial Normal [facility] Comment on above: Performed By: #### C BC, LACTIC, HS TROP, BMP #### [address] Basic Metabolic Panelon 07-01 Calcium [Mass/Vol] 9.4 mg/dL Normal 8.2-10.2 [facility] Comment on above: Performed By: #### C BC, LACTIC, HS TROP, BMP #### [address] Chloride [Moles/Vol] 88 mmol/L Low 95-114 [facility] Comment on above: Performed By: #### C BC, LACTIC, HS TROP, BMP #### [address] CO2 [Moles/Vol] 41.2 mmol/L High 22.0-30.0 [facility] Comment on above: Performed By: #### C BC, LACTIC, HS TROP, BMP #### [address] Creatinine [Mass/Vol] 0.74 mg/dL Normal 0.44-1.03 [facility] Comment on above: Performed By: #### C BC, LACTIC, HS TROP, BMP #### [place] [address] [place] Creatinine Clr Calc Pharmacy 122.16 [facility] Comment on above: Result Comment: PERF ORMED BY: [place] [address] PATHOLOGIST WAGE ANALYST OTILIA BAIRD M.D. Performed By: #### C BC, LACTIC, HS TROP, BMP #### [address] Estimated GFR ( Hilary > 60 [facility] Comment on above: Result Comment: GFR estimated reference range: According to KDOQI guidelines, <60 ml/min/1.73m2 is sufficient to diagnose a patient with chronic kidney disease. Performed By: #### C BC, LACTIC, HS TROP, BMP #### [address] Estimated GFR (Non- Am > 60 [facility] Comment on above: Performed By: #### C BC, LACTIC, HS TROP, BMP #### [place] [id number] [place] Glucose [Mass/Vol] 94 mg/dL Normal 70-100 [facility] Comment on above: Result Comment: [place] Glucose Reference Range is dependent on time and content of last meal. Glucose of more than 200 mg/dL in a nonstressed, ambulatory subject supports the diagnosis of Diabetes Mellitus. ADA recommended reference range Performed By: #### C BC, LACTIC, HS TROP, BMP #### [facility] [address] Potassium [Moles/Vol] 3.9 mmol/L Normal 3.5-5.1 [facility] Comment on above: Performed By: #### C BC, LACTIC, HS TROP, BMP #### [facility] [address] Sodium [Moles/Vol] 138 mmol/L Normal 136-146 [facility] Comment on above: Performed By: #### C BC, LACTIC, HS TROP, BMP #### [facility] [address] Urea nitrogen [Mass/Vol] 15 mg/dL Normal 9-23 [facility] Comment on above: Performed By: #### C BC, LACTIC, HS TROP, BMP #### [facility] [address] ECH echo transthoracicon ECH echo transthoracic [facility] Main [place] [address] [place] [address] Echocardiogram Signed Patient: Aliya Moore MR#: [id number] : 1965 Acct:[id number] Age/Sex: 55 / F ADM Date: 07/09/21 Loc: Room: [address] [place] [address] Type: ADM IN Attending Dr: Colby Camara [...] MD 07/10/21 1037 Signed By: 07/10/21 1324 [facility] Glucose Poct Glucometerson 0 07-10-2021 Commemt1 Glu2: Cleaned Meter [facility] Comment on above: Result Comment: PERF ORMED BY: [place] [address] PATHOLOGIST WAGE ANALYST OTILIA BAIRD M.D. Performed By: #### C BC, LACTIC, HS TROP, BMP #### [place] [address] [place] Glucose [Mass/Vol] 124 mg/dL Normal [facility] Comment on above: Result Comment: [place] om Glucose Reference Range is dependent on time and content of last meal. Glucose of more than 200 mg/dL in a nonstressed, ambulatory subject supports the diagnosis of Diabetes Mellitus. Performed By: #### C BC, LACTIC, HS TROP, BMP #### [facility] [address] [place] [address] Commemt1 Glu2: Cleaned Meter [facility] Comment on above: Result Comment: PERF ORMED BY: [place] [address] PATHOLOGIST WAGE ANALYST OTILIA BAIRD M.D. Performed By: #### C BC, LACTIC, HS TROP, BMP #### [facility] [address] [place] [address] [place] Glucose [Mass/Vol] 293 mg/dL Normal [facility] Comment on above: Result Comment: [place] om Glucose Reference Range is dependent on time and content of last meal. Glucose of more than 200 mg/dL in a nonstressed, ambulatory subject supports the diagnosis of Diabetes Mellitus. Performed By: #### C BC, LACTIC, HS TROP, BMP #### [facility] [address] [place] [address] [place] Commemt1 Glu2: Cleaned Meter [facility] Comment on above: Result Comment: PERF ORMED BY: [address] [place] [address] PATHOLOGIST WAGE ANALYST OTILIA BAIRD M.D. Performed By: #### C BC, LACTIC, HS TROP, BMP #### [address] Glucose [Mass/Vol] 140 mg/dL Normal [facility] Comment on above: Result Comment: [place] om Glucose Reference Range is dependent on time and content of last meal. Glucose of more than 200 mg/dL in a nonstressed, ambulatory subject supports the diagnosis of Diabetes Mellitus. Performed By: #### C BC, LACTIC, HS TROP, BMP #### [address] Glucose [Mass/Vol] 105 mg/dL Normal [facility] Comment on above: Result Comment: [place] om Glucose Reference Range is dependent on time and content of last meal. Glucose of more than 200 mg/dL in a nonstressed, ambulatory subject supports the diagnosis of Diabetes Mellitus. PERFORMED BY: [place] [address] PATHOLOGIST WAGE ANALYST OTILIA BAIRD M.D. Performed By: #### C BC, LACTIC, HS TROP, BMP #### [address] B-Type Natriuretic Peptideon 07-09-2021 Natriuretic peptide B (Bld) [Mass/Vol] 121.0 pg/mL High 5-100 [facility] Comment on above: Result Comment: PERF ORMED BY: [place] [address] PATHOLOGIST WAGE ANALYST OTILIA BAIRD M.D. Performed By: #### C BC, LACTIC, HS TROP, BMP #### [address] Basic Metabolic Panelon 09-0 Calcium [Mass/Vol] 9.0 mg/dL Normal 8.2-10.2 [facility] Comment on above: Performed By: #### C BC, LACTIC, HS TROP, BMP #### [address] [place] [address] [place] Chloride [Moles/Vol] 92 mmol/L Low 95-114 [facility] Comment on above: Performed By: #### C BC, LACTIC, HS TROP, BMP #### [address] CO2 [Moles/Vol] 36.9 mmol/L High 22.0-30.0 [facility] Comment on above: Performed By: #### C BC, LACTIC, HS TROP, BMP #### [address] Creatinine [Mass/Vol] 0.66 mg/dL Normal 0.44-1.03 [facility] Comment on above: Performed By: #### C BC, LACTIC, HS TROP, BMP #### [address] Creatinine Clr Calc Pharmacy 137.69 [facility] Comment on above: Result Comment: PERF ORMED BY: [place] [address] PATHOLOGIST WAGE ANALYST OTILIA BAIRD M.D. Performed By: #### C BC, LACTIC, HS TROP, BMP #### [address] Estimated GFR ( Hilary > 60 [facility] Comment on above: Result Comment: GFR estimated reference range: According to KDOQI guidelines, <60 ml/min/1.73m2 is sufficient to diagnose a patient with chronic kidney disease. Performed By: #### C BC, LACTIC, HS TROP, BMP #### [address] Estimated GFR (Non- Am > 60 [facility] Comment on above: Performed By: #### C BC, LACTIC, HS TROP, BMP #### [address] Glucose [Mass/Vol] 119 mg/dL High 70-100 [facility] Comment on above: Result Comment: [place] Glucose Reference Range is dependent on time and content of last meal. Glucose of more than 200 mg/dL in a nonstressed, ambulatory subject supports the diagnosis of Diabetes Mellitus. ADA recommended reference range Performed By: #### C BC, LACTIC, HS TROP, BMP #### [facility] [address] Potassium [Moles/Vol] 4.5 mmol/L Normal 3.5-5.1 [facility] Comment on above: Performed By: #### C BC, LACTIC, HS TROP, BMP #### [facility] [address] Sodium [Moles/Vol] 137 mmol/L Normal 136-146 [facility] Comment on above: Performed By: #### C BC, LACTIC, HS TROP, BMP #### [facility] [address] Urea nitrogen [Mass/Vol] 9 mg/dL Normal 9-23 [facility] Comment on above: Performed By: #### C BC, LACTIC, HS TROP, BMP #### [facility] [address] COVID-19 Antigenon 1 COVID-19 [facility] [...] its performance Valdemar Disclaimer characteristic determined by [employer] and Valdemar Disclaimer validated at [facility]. This Valdemar Disclaimer test has not been [...] is terminated or revoked sooner. PERFORMED BY: [facility] [place] [id number] PATHOLOGIST WAGE ANALYST OTILIA BAIRD M.D. 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 This test has not been FDA cleared [...] is terminated or revoked sooner. PERFORMED BY: [place] [address] PATHOLOGIST WAGE ANALYST OTILIA BAIRD M.D. Performed By: #### C OVID 19 [facility], COVID-19 VALDEMAR, SOFIANEG #### [facility] [address] [place] [id number] [facility] Complete Blood Count Auto Di ffon 07-09-2021 Basophils (Bld) [#/Vol] 0.0 10*3/uL Normal 0.0-0.2 [facility] Comment on above: Result Comment: PERF ORMED BY: [place] [id number] PATHOLOGIST WAGE ANALYST OTILIA BAIRD M.D. Performed By: #### C BC, LACTIC, HS TROP, BMP #### [address] Basophils/100 WBC (Bld) 0.4 % Normal . [facility] Comment on above: Performed By: #### C BC, LACTIC, HS TROP, BMP #### [address] Eosinophils (Bld) [#/Vol] 0.2 10*3/uL Normal 0.0-0.45 [facility] Comment on above: Performed By: #### C BC, LACTIC, HS TROP, BMP #### [address] Eosinophils/100 WBC (Bld) 2.5 % Normal . [facility] Comment on above: Performed By: #### C BC, LACTIC, HS TROP, BMP #### [address] Erythrocyte distribution width (RBC) [Ratio] 18.9 % High 11.9-15.3 [facility] Comment on above: Performed By: #### C BC, LACTIC, HS TROP, BMP #### [address] Hematocrit (Bld) [Volume fraction] 39.5 % Normal 34.0-46.4 [facility] Comment on above: Performed By: #### C BC, LACTIC, HS TROP, BMP #### [address] Hemoglobin (Bld) [Mass/Vol] 12.8 g/dL Normal 11.8-15.4 [facility] Comment on above: Performed By: #### C BC, LACTIC, HS TROP, BMP #### [address] Lymphocytes (Bld) [#/Vol] 0.7 10*3/uL Low 1.00-4.8 [facility] Comment on above: Performed By: #### C BC, LACTIC, HS TROP, BMP #### [facility] [address] [place] [address] [place] Lymphocytes/100 WBC (Bld) 9.3 % Normal . [facility] Comment on above: Performed By: #### C BC, LACTIC, HS TROP, BMP #### [facility] [address] MCH (RBC) [Entitic mass] 28.8 pg Normal 24.7-34.3 [facility] Comment on above: Performed By: #### C BC, LACTIC, HS TROP, BMP #### [facility] [address] MCV (RBC) [Entitic vol] 89.1 fL Normal 80-100 [facility] Comment on above: Performed By: #### C BC, LACTIC, HS TROP, BMP #### [address] Mean Corpuscular HGB Conc 32.4 g/dL Normal 32.0-35.0 [facility] Comment on above: Performed By: #### C BC, LACTIC, HS TROP, BMP #### [facility] [address] [place] [address] [place] Monocytes (Bld) [#/Vol] 0.7 10*3/uL Normal 0.0-0.8 [facility] Comment on above: Performed By: #### C BC, LACTIC, HS TROP, BMP #### [facility] [address] [place] [address] [place] Monocytes/100 WBC (Bld) 8.4 % Normal . [facility] Comment on above: Performed By: #### C BC, LACTIC, HS TROP, BMP #### [facility] [address] [place] [address] [place] Neutrophils (Bld) [#/Vol] 6.4 10*3/uL Normal 1.8-7.7 [facility] Comment on above: Performed By: #### C BC, LACTIC, HS TROP, BMP #### [facility] [address] [place] [address] [place] Neutrophils/100 WBC (Bld) 79.4 % Normal . [facility] Comment on above: Performed By: #### C BC, LACTIC, HS TROP, BMP #### [facility] [address] Nucleated RBC/100 WBC (Bld) [Ratio] 0.2 % Normal 0-0.5 [facility] Comment on above: Performed By: #### C BC, LACTIC, HS TROP, BMP #### [facility] [address] Platelet mean volume (Bld) [Entitic vol] 9.4 fL Normal 6.3-10.7 [facility] Comment on above: Performed By: #### C BC, LACTIC, HS TROP, BMP #### [address] Platelets (Bld) [#/Vol] 138 10*3/uL Low 150-450 [facility] Comment on above: Performed By: #### C BC, LACTIC, HS TROP, BMP #### [address] RBC (Bld) [#/Vol] 4.44 10*6/uL Normal 3.60-5.00 [facility] Comment on above: Performed By: #### C BC, LACTIC, HS TROP, BMP #### [address] WBC (Bld) [#/Vol] 8.0 10*3/uL Normal 4.5-11.0 [facility] Comment on above: Performed By: #### C BC, LACTIC, HS TROP, BMP #### [address] D-Dimer High Sensitivityon 0 07-09-2021 D-Dimer High Sensitivity 247 ng/mL High 0-243 [facility] Comment on above: Result Comment: The reference [...] patients due to co-morbid conditions. PERFORMED BY: [place] [address] PATHOLOGIST WAGE ANALYST OTILIA BAIRD M.D. Performed By: #### C BC, LACTIC, HS TROP, BMP #### [place] [id number] [facility] ECG 12 lead ECGon 07-09-2021 ECG 12 lead ECG [facility] Main [place] [address] [place] [address] Electrocardiograph Report Signed Patient: Aliya Moore MR#: [id number] : 1965 Acct:[id number] Age/Sex: 55 / F ADM Date: 07/09/21 Loc: Room: [address] [place] [address] Type: ADM IN Attending Dr: Kirk Lopez [...] ECGs available Confirmed by CAROLEE ABDALLA DO ([id number]) on 07/09/2021 1:45:33 AM Referred By: Electronically Signed By:CAROLEE ABDALLA DO Transcribed By: MUS Signed By Carolee Abdalla DO 07/09 0145 Normal [facility] Glucose Poct Glucometerson 0 07-09-2021 Commemt1 Glu2: Cleaned Meter Normal [facility] Comment on above: Result Comment: PERF ORMED BY: [place] [id number] PATHOLOGIST WAGE ANALYST OTILIA BAIRD M.D. Performed By: #### C BC, LACTIC, HS TROP, BMP #### [facility] [address] [place] [address] [place] Glucose [Mass/Vol] 154 mg/dL Normal [facility] Comment on above: Result Comment: [place] om Glucose Reference Range is dependent on time and content of last meal. Glucose of more than 200 mg/dL in a nonstressed, ambulatory subject supports the diagnosis of Diabetes Mellitus. Performed By: #### C BC, LACTIC, HS TROP, BMP #### [facility] [address] [place] [address] [place] Glucose [Mass/Vol] 132 mg/dL Normal [facility] Comment on above: Result Comment: [place] om Glucose Reference Range is dependent on time and content of last meal. Glucose of more than 200 mg/dL in a nonstressed, ambulatory subject supports the diagnosis of Diabetes Mellitus. PERFORMED BY: [address] [place] [address] PATHOLOGIST WAGE ANALYST OTILIA BAIRD M.D. Performed By: #### C BC, LACTIC, HS TROP, BMP #### [facility] [address] [place] [id number] [place] Glucose [Mass/Vol] 176 mg/dL Normal [facility] Comment on above: Result Comment: [place] om Glucose Reference Range is dependent on time and content of last meal. Glucose of more than 200 mg/dL in a nonstressed, ambulatory subject supports the diagnosis of Diabetes Mellitus. PERFORMED BY: [address] [place] [address] PATHOLOGIST WAGE ANALYST OTILIA BAIRD M.D. Performed By: #### C BC, LACTIC, HS TROP, BMP #### [facility] [address] [place] [id number] [place] Glucose [Mass/Vol] 173 mg/dL Normal [facility] Comment on above: Result Comment: [place] om Glucose Reference Range is dependent on time and content of last meal. Glucose of more than 200 mg/dL in a nonstressed, ambulatory subject supports the diagnosis of Diabetes Mellitus. PERFORMED BY: [address] [address] PATHOLOGIST WAGE ANALYST OTILIA BAIRD M.D. Performed By: #### G LULS #### Point of Care testing , Lactic Acidon 07-09-2021 Lactate [Moles/Vol] 0.6 mmol/L Normal 0.5-2.2 [facility] Comment on above: Result Comment: PERF ORMED BY: [place] [phone] PATHOLOGIST WAGE ANALYST OTILIA BAIRD M.D. Performed By: #### C BC, LACTIC, HS TROP, BMP #### [address] Valdemar Ag Negativeon 07-09-20 21 Valdemar Ag Negative Negative Normal Negative [facility] Comment on above: Result Comment: This is a duplicate Valdemar SARS Antigen (ROWDY) result to be used for statistical tracking purpose only. PERFORMED BY: [phone] PATHOLOGIST WAGE ANALYST OTILIA BAIRD M.D. Performed By: #### C OVID 19 [facility], COVID-19 VALDEMAR, SOFIANEG #### [facility] [address] [place] [address] Troponin I High Sensitivityo n 07-09-2021 Troponin I High Sensitivity 14 pg/mL Normal 0-15 [facility] Comment on above: Result Comment: PERF ORMED BY: [place] [phone] PATHOLOGIST WAGE ANALYST OTILIA BAIRD M.D. Performed By: #### C BC, LACTIC, HS TROP, BMP #### [facility] [address] [place] [address] Venous Blood Gason 1 CO2 [Moles/Vol] 40.3 mmol/L High 24.0-29.0 [facility] Comment on above: Performed By: #### V BG #### Point of Care testing , HCO3 (Bld) [Moles/Vol] 38.2 mmol/L High 23.0-29.0 [facility] Comment on above: Performed By: #### V BG #### Point of Care testing , Respiratory Critical Normal [facility] Comment on above: Result Comment: Crit ical Value called on: 07/08/2021 at 23:40 PERFORMED BY: [place] [id number] PATHOLOGIST WAGE ANALYST OTILIA BAIRD M.D. Performed By: #### V BG #### Point of Care testing , VBG Base Excess 9.9 mmol/L High -3.0-3.0 [facility] Comment on above: Performed By: #### V BG #### Point of Care testing , VBG Draw Site Other Normal [facility] Comment on above: Performed By: #### V BG #### Point of Care testing , VBG Frac Inspired O2 70 % [facility] Comment on above: Performed By: #### V BG #### Point of Care testing , VBG Oxygen Saturation 94.1 % Off scale high 73.0-76.0 [facility] Comment on above: Performed By: #### V BG #### Point of Care testing , VBG PCO2 70.1 mm[Hg] High 38.0-50.0 [facility] Comment on above: Performed By: #### V BG #### Point of Care testing , VBG PH Venous PH 7.35 Normal 7.32-7.43 [facility] Comment on above: Performed By: #### V BG #### Point of Care testing , VBG PO2 72.4 mm[Hg] High 35.0-45.0 [facility] Comment on above: Performed By: #### V BG #### Point of Care testing , XR chest 1V portableon 07-09 XR chest 1V portable [facility] Main [address] [address] XRay Report Signed Patient: Aliya Moore MR#: [id number] : 1965 Acct:[id number] Age/Sex: 55 / F ADM Date: 07/09/21 Loc: 4P Room: 6L7555-0 Type: ADM IN Attending Dr: Kirk Lopez [...] Sheldon Khan M.D.07/09/2021 8:33 AM Dictation Location: [place] [address] Transcribed By: [facility] 07/09/21 0833 Dictated By: Sheldon Khan DO 07/09/21 0832 Signed By: 07/09/21 0833 [facility] Cardiovascular Lab Reporton 06-15-2021 Cardiovascular Lab Report [facility] Patient Name: [facility] J MR #: [id number] Department of Physician: Boo Landers M.D. Division of Service Date: 06/15/2021 Cardiology Birthdate: 1965 Adult Cardiovascular Room #: [place] [address] Cardiovascular Laboratory Report IMPRESSIONS: 1. Mild disease [...] management; given mild coronary artery disease, aspirin, sdtvvyff-qi-taar intensity statin therapy, beta-aleks, and angiotensin-convertin g enzyme inhibitor are indicated. 4. Follow up with Toshia Sam nurse practitioner in the next 2 to 3 months. 5. Follow up with her family physician as scheduled. PROCEDURES: Ultrasound-guided access to the right common femoral vein, ultrasound-guided access to the right common femoral artery, right heart catheterization, bilateral selective coronary angiography, placement of a 6-Bulgarian MynxGrip closure device. METHODS: After risks, benefits, [...] femoral vein and artery was obtained. A 6-Bulgarian 11 cm sheath was placed in each. [...] the procedure. All catheters were removed. A 6-Bulgarian MynxGrip closure device was deployed per protocol [...] Soto M.D. Date Trans: 06/15/2021 11:37 A/sofía [id number] cc: Toshia Sam, MSN, BAND STRAIGHTENER-C Department Of Surgery [place] [address] [facility] [address] [facility] Vital Signs Date Time Vital Sign Value Performing Clinician Facility 12-03-2024 09:03-0500 Body height 175.3 cm Brea Jj NP Work Phone: [facility] 12-03-2024 09:03-0500 Body mass index (BMI) [Ratio] 36.68 kg/m2 Brea Jj NP Work Phone: [facility] 12-03-2024 09:03-0500 Body temperature 98.49 [degF] Brea Jj NP Work Phone: [facility] 12-03-2024 09:03-0500 Body weight 112.67 kg Brea Jj NP Work Phone: [facility] 12-03-2024 09:03-0500 Diastolic blood pressure 62 mm[Hg] Brea Jj NP Work Phone: [facility] 12-03-2024 09:03-0500 Heart rate 112 /min Brea Aichholz EXCELSIOR MACHINE FEEDER Work Phone: [facility] 12-03-2024 09:03-0500 Respiratory rate 20 /min Breaadriana Applez EXCELSIOR MACHINE FEEDER Work Phone: [facility] 12-03-2024 09:03-0500 SaO2% (BldA) [Mass fraction] 93 % Breaadriana Applez EXCELSIOR MACHINE FEEDER Work Phone: [facility] 12-03-2024 09:03-0500 Systolic blood pressure 110 mm[Hg] Brea Cheleholz EXCELSIOR MACHINE FEEDER Work Phone: [facility] 10-29-2024 18:18-0500 SaO2% (BldA) [Mass fraction] 93 % Brea Cheleholz EXCELSIOR MACHINE FEEDER Work Phone: [facility] 10-29-2024 18:01-0500 Body height 175.3 cm Brea Applez EXCELSIOR MACHINE FEEDER Work Phone: [facility] 10-29-2024 18:01-0500 Body mass index (BMI) [Ratio] 38.87 kg/m2 Breaadriana Applez EXCELSIOR MACHINE FEEDER Work Phone: [facility] 10-29-2024 18:01-0500 Body temperature 97.81 [degF] Brea Applez EXCELSIOR MACHINE FEEDER Work Phone: [facility] 10-29-2024 18:01-0500 Body weight 119.39 kg Brea Applez EXCELSIOR MACHINE FEEDER Work Phone: [facility] 10-29-2024 18:01-0500 Diastolic blood pressure 68 mm[Hg] Brea Cheleholz EXCELSIOR MACHINE FEEDER Work Phone: [facility] 10-29-2024 18:01-0500 Heart rate 96 /min Brea Cheleholz EXCELSIOR MACHINE FEEDER Work Phone: [facility] 10-29-2024 18:01-0500 Respiratory rate 18 /min Brea Cheleholz EXCELSIOR MACHINE FEEDER Work Phone: [facility] 10-29-2024 18:01-0500 Systolic blood pressure 118 mm[Hg] Breaadriana Applez EXCELSIOR MACHINE FEEDER Work Phone: [facility] 07-24-2024 09:22-0400 Body height 175.3 cm Brea Cheleholz EXCELSIOR MACHINE FEEDER Work Phone: [facility] 07-24-2024 09:22-0400 Body mass index (BMI) [Ratio] 38.45 kg/m2 Brea Cheleholz EXCELSIOR MACHINE FEEDER Work Phone: [facility] 07-24-2024 09:22-0400 Body temperature 98.29 [degF] Breaadriana Elaineholz EXCELSIOR MACHINE FEEDER Work Phone: [facility] 07-24-2024 09:22-0400 Body weight 118.12 kg Breaadriana Elaineholz EXCELSIOR MACHINE FEEDER Work Phone: [facility] 07-24-2024 09:22-0400 Diastolic blood pressure 82 mm[Hg] Brea Cheleholz EXCELSIOR MACHINE FEEDER Work Phone: [facility] 07-24-2024 09:22-0400 Heart rate 83 /min Brea Cheleholz EXCELSIOR MACHINE FEEDER Work Phone: [facility] 07-24-2024 09:22-0400 Respiratory rate 19 /min Brea Cheleholz EXCELSIOR MACHINE FEEDER Work Phone: [facility] 07-24-2024 09:22-0400 SaO2% (BldA) [Mass fraction] 90 % Brea Cheleholz EXCELSIOR MACHINE FEEDER Work Phone: [facility] 07-24-2024 09:22-0400 Systolic blood pressure 130 mm[Hg] Brea Cheleholz EXCELSIOR MACHINE FEEDER Work Phone: [facility] 07-23-2024 10:37-0400 Body temperature 98.42 [degF] Mariama Yumaye [facility] 07-23-2024 10:37-0400 Diastolic blood pressure 69 mm[Hg] Mariama Swapna [facility] 07-23-2024 10:37-0400 Heart rate 94 /min Mariama Javedke [facility] 07-23-2024 10:37-0400 Mean blood pressure 81 mm[Hg] Mariama Yuboske [facility] 07-23-2024 10:37-0400 Respiratory rate 16 /min Mariama Javedke [facility] 07-23-2024 10:37-0400 SaO2% (BldA) [Mass fraction] 92 % Mariama Javedke [facility] 07-23-2024 10:37-0400 Systolic blood pressure 106 mm[Hg] Mariama Javedke [facility] 01-16-2024 11:17-0400 Body temperature 97.7 [degF] Mariama Javedke [facility] 01-16-2024 11:17-0400 Diastolic blood pressure 73 mm[Hg] Mariama Javedke [facility] 01-16-2024 11:17-0400 Heart rate 109 /min Mariama Javedke [facility] 01-16-2024 11:17-0400 Mean blood pressure 92 mm[Hg] Mariama Yuboske [facility] 01-16-2024 11:17-0400 Respiratory rate 18 /min Mariama Javedke [facility] 01-16-2024 11:17-0400 SaO2% (BldA) [Mass fraction] 94 % Mariama Yuboske [facility] 01-16-2024 11:17-0400 Systolic blood pressure 130 mm[Hg] Mariama Yuboske [facility] 12-05-2023 08:48-0500 Body height 175.3 cm Brea Aichholz [employer]ACHINE [employer]EDER Work Phone: [facility] 12-05-2023 08:48-0500 Body mass index (BMI) [Ratio] 37.51 kg/m2 Brea Jj [employer]CELSIOR MACHINE FEEDER Work Phone: [facility] 12-05-2023 08:48-0500 Body temperature 97.11 [degF] Brea Jj [employer]CELSIOR MACHINE FEEDER Work Phone: [facility] 12-05-2023 08:48-0500 Body weight 115.21 kg Brea Jj [employer]CELSIOR MACHINE FEEDER Work Phone: [facility] 12-05-2023 08:48-0500 Diastolic blood pressure 68 mm[Hg] Brea Jj [employer]CELSIOR MACHINE FEEDER Work Phone: [facility] 12-05-2023 08:48-0500 Heart rate 103 /min Brea Jj [employer]CELSIOR MACHINE FEEDER Work Phone: [facility] 12-05-2023 08:48-0500 Respiratory rate 17 /min Brea Jj [employer]CELSIOR MACHINE FEEDER Work Phone: [facility] 12-05-2023 08:48-0500 SaO2% (BldA) [Mass fraction] 99 % Brea Jj EXCELSIOR MACHINE FEEDER Work Phone: [facility] 12-05-2023 08:48-0500 Systolic blood pressure 110 mm[Hg] Brea Jj EXCELSIOR MACHINE FEEDER Work Phone: [facility] 09-25-2023 21:50-0500 Diastolic blood pressure 73 mm[Hg] Demond Avni [facility] 09-25-2023 21:50-0500 Heart rate 95 /min Demond Avni [facility] 09-25-2023 21:50-0500 Mean blood pressure 90 mm[Hg] Demond Avni [facility] 09-25-2023 21:50-0500 Respiratory rate 22 /min Demond Avni [facility] 09-25-2023 21:50-0500 SaO2% (BldA) [Mass fraction] 97 % Demond Avni [facility] 09-25-2023 21:50-0500 Systolic blood pressure 123 mm[Hg] Demond Avni [facility] 09-25-2023 20:37-0500 Diastolic blood pressure 77 mm[Hg] Demond Avni [facility] 09-25-2023 20:37-0500 Heart rate 94 /min Demond Avni [facility] 09-25-2023 20:37-0500 Mean blood pressure 99 mm[Hg] Demond Avni [facility] 09-25-2023 20:37-0500 Respiratory rate 18 /min Demond Avni [facility] 09-25-2023 20:37-0500 SaO2% (BldA) [Mass fraction] 97 % Demond Avni [facility] 09-25-2023 20:37-0500 Systolic blood pressure 144 mm[Hg] Demond Avni [facility] 09-25-2023 19:50-0500 Diastolic blood pressure 83 mm[Hg] Demond Avni [facility] 09-25-2023 19:50-0500 Heart rate 100 /min Demond Avni [facility] 09-25-2023 19:50-0500 Mean blood pressure 104 mm[Hg] Demond Avni [facility] 09-25-2023 19:50-0500 Respiratory rate 22 /min Demond Avni [facility] 09-25-2023 19:50-0500 SaO2% (BldA) [Mass fraction] 98 % Demond Holly [facility] 09-25-2023 19:50-0500 Systolic blood pressure 147 mm[Hg] Demond Holly [facility] 09-25-2023 18:23-0500 Body temperature 98.24 [degF] Demond Holly [facility] 09-25-2023 18:23-0500 Heart rate 111 /min Demond Holly [facility] 09-25-2023 18:23-0500 Respiratory rate 24 /min Demond Holly [facility] 09-08-2023 20:26-0500 Body temperature 98.06 [degF] Ramses Reginaldo [facility] 09-08-2023 20:26-0500 Diastolic blood pressure 76 mm[Hg] Ramses Hair [facility] 09-08-2023 20:26-0500 Heart rate 81 /min Ramses Reginaldo [facility] 09-08-2023 20:26-0500 Mean blood pressure 87 mm[Hg] Ramses Reginaldo [facility] 09-08-2023 20:26-0500 Respiratory rate 20 /min Ramses Reginaldo [facility] 09-08-2023 20:26-0500 SaO2% (BldA) [Mass fraction] 99 % Ramses Reginaldo [facility] 09-08-2023 20:26-0500 Systolic blood pressure 110 mm[Hg] Ramses Reginaldo [facility] 09-08-2023 19:28-0500 Diastolic blood pressure 61 mm[Hg] Ramses Reginaldo [facility] 09-08-2023 19:28-0500 Heart rate 86 /min Ramses Reginaldo [facility] 09-08-2023 19:28-0500 Mean blood pressure 82 mm[Hg] Ramses Reginaldo [facility] 09-08-2023 19:28-0500 Respiratory rate 18 /min Ramses Reginaldo [facility] 09-08-2023 19:28-0500 SaO2% (BldA) [Mass fraction] 99 % Ramses Reginaldo [facility] 09-08-2023 19:28-0500 Systolic blood pressure 123 mm[Hg] Ramses Reginaldo [facility] 09-08-2023 18:00-0500 Diastolic blood pressure 75 mm[Hg] Ramses Reginaldo [facility] 09-08-2023 18:00-0500 Heart rate 92 /min Ramses Reginaldo [facility] 09-08-2023 18:00-0500 SaO2% (BldA) [Mass fraction] 91 % Ramses Reginaldo [facility] 09-08-2023 18:00-0500 Systolic blood pressure 124 mm[Hg] Ramses Reginaldo [facility] 09-08-2023 16:33-0500 Body temperature 98.24 [degF] Ramses Reginaldo [facility] 09-08-2023 16:33-0500 Heart rate 104 /min Ramses Reginaldo [facility] 09-08-2023 16:33-0500 Respiratory rate 24 /min Ramses Reginaldo [facility] 07-19-2023 09:00-0400 Blood Pressure Location d TraceNeelima [facility] 07-19-2023 09:00-0400 Body temperature 98.06 [degF] Mhd Al-Marrawi [facility] 07-19-2023 09:00-0400 Diastolic blood pressure 72 mm[Hg] Mhd Al-Marrawi [facility] 07-19-2023 09:00-0400 Heart rate 79 /min Mhd Al-Marrawi [facility] 07-19-2023 09:00-0400 Mean blood pressure 88 mm[Hg] Mhd Al-Marrawi [facility] 07-19-2023 09:00-0400 Respiratory rate 18 /min Mhd Al-Marrawi [facility] 07-19-2023 09:00-0400 SaO2% (BldA) [Mass fraction] 93 % Mhd Al-Marrawi [facility] 07-19-2023 09:00-0400 Systolic blood pressure 120 mm[Hg] Mhd Al-Marrawi [facility] 06-28-2023 10:00-0400 Blood Pressure [facility] 06-28-2023 10:00-0400 Body temperature 98.06 [degF] [facility]28[facility]23 10:00-0400 Diastolic blood pressure 69 mm[Hg] [facility]28[facility] 10:00-0400 Heart rate 101 /min [facility] 06-28-2023 10:00-0400 Mean blood pressure 90 mm[Hg] [facility] 06-28-2023 10:00-0400 Respiratory rate 16 /min [facility] 08-29-2023 10:00-0400 SaO2% (BldA) [Mass fraction] 92 % Ezekiel Christian [facility] 06-28-2023 10:00-0400 Systolic blood pressure 133 mm[Hg] Ezekiel Christian [facility] 06-17-2023 17:06-0400 Hourly Rounding Mbanefo OJUKWU [facility] 06-17-2023 17:06-0400 Promise to Return Mbanefo OJUKWU [facility] 06-17-2023 16:00-0400 Hourly Rounding Mbanefo OJUKWU [facility] 06-17-2023 16:00-0400 Promise to Return Mbanefo OJUKWU [facility] 06-17-2023 15:42-0400 Heart rate 82 /min Mbanefo OJUKWU [facility] 06-17-2023 15:42-0400 SaO2% (BldA) [Mass fraction] 95 % Mbanefo OJUKWU [facility] 06-17-2023 15:42-0400 Diastolic blood pressure 64 mm[Hg] Mbanefo OJUKWU [facility] 06-17-2023 15:42-0400 Mean blood pressure 79 mm[Hg] Mbanefo OJUKWU [facility] 06-17-2023 15:42-0400 Systolic blood pressure 109 mm[Hg] Mbanefo OJUKWU [facility] 06-17-2023 15:41-0400 Body temperature 97.88 [degF] Mbanefo OJUKWU [facility] 08-18-2023 15:05-0400 Hourly Rounding Mbanefo OJUKWU [facility] 06-17-2023 15:05-0400 Promise to Return Mbanefo OJUKWU [facility] 06-17-2023 14:00-0400 SaO2% (BldA) [Mass fraction] 96 % Mbanefo OJUKWU [facility] 06-17-2023 12:53-0400 Heart rate 87 /min Mbanefo OJUKWU [facility] 06-17-2023 12:53-0400 Respiratory rate 18 /min Mbanefo OJUKWU [facility] 06-17-2023 12:48-0400 SaO2% (BldA) [Mass fraction] 95 % Mbanefo OJUKWU [facility] 06-17-2023 12:44-0400 Heart rate 86 /min Mbanefo OJUKWU [facility] 06-17-2023 12:44-0400 Respiratory rate 18 /min Mbanefo OJUKWU [facility] 06-17-2023 12:00-0400 Diastolic blood pressure 66 mm[Hg] Mbanefo OJUKWU [facility] 06-17-2023 12:00-0400 Mean blood pressure 86 mm[Hg] Mbanefo OJUKWU [facility] 06-17-2023 12:00-0400 Systolic blood pressure 125 mm[Hg] Mbanefo OJUKWU [facility] 06-17-2023 09:19-0400 Diastolic blood pressure 71 mm[Hg] Mbanefo OJUKWU [facility] 06-17-2023 09:19-0400 Systolic blood pressure 134 mm[Hg] Mbanefo OJUKWU [facility] 06-17-2023 09:16-0400 gluc 173 mg/dL Mbanefo OJUKWU [facility] 06-17-2023 07:33-0400 Mean blood pressure 90 mm[Hg] Mbanefo OJUKWU [facility] 06-17-2023 07:33-0400 Body temperature 97.88 [degF] Mbanefo OJUKWU [facility] 06-17-2023 04:00-0400 Blood Pressure Location Mbanefo OJUKWU [facility] 06-17-2023 04:00-0400 Body temperature 98.24 [degF] Mbanefo OJUKWU [facility] 06-17-2023 04:00-0400 Mean blood pressure 91 mm[Hg] Mbanefo OJUKWU [facility] 06-17-2023 00:00-0400 Body temperature 97.88 [degF] Mbanefo OJUKWU [facility] 06-16-2023 22:48-0400 Blood Pressure Location Mbanefo OJUKWU [facility] 06-16-2023 22:48-0400 Body temperature 98.24 [degF] Mbanefo OJUKWU [facility] 06-16-2023 22:48-0400 Heart rate 80 /min Mbanefo OJUKWU [facility] 06-16-2023 21:42-0400 Mean blood pressure 76 mm[Hg] Mbanefo OJUKWU [facility] 06-16-2023 21:42-0400 Respiratory rate 18 /min Mbanefo OJUKWU [facility] 06-16-2023 20:45-0400 Mean blood pressure 95 mm[Hg] Mbanefo OJUKWU [facility] 06-16-2023 20:45-0400 Respiratory rate 18 /min Mbanefo OJUKWU [facility] 06-16-2023 19:39-0400 Respiratory rate 18 /min Mbanefo OJUKWU [facility] 06-16-2023 15:51-0400 Heart rate 107 /min Mbanefo OJUKWU [facility] 06-16-2023 15:51-0400 Respiratory rate 22 /min Mbanefo OJUKWU [facility] Encounters Encounter Date Encounter Type Care Provider Facility Start: 12-03-2024 End: 12-03-2024 Bamboo flowsheet Brea Jj EXCELSIOR MACHINE FEEDER Work Phone: [facility] Start: 12-03-2024 End: 12-03-2024 Bamboo flowsheet Brea Jj EXCELSIOR MACHINE FEEDER Work Phone: [facility] Start: 12-03-2024 End: 12-03-2024 Refill Brea Jj EXCELSIOR MACHINE FEEDER Work Phone: [facility] Comment on above: Anxiety and depressi on (CMS/HCC); Restless leg syndrome; Other insomnia Start: 12-03-2024 End: 12-03-2024 Office outpatient visit 25 minutes Brea Jj EXCELSIOR MACHINE FEEDER Work Phone: [facility] Comment on above: Weight loss, uninten tional (Primary Dx); Chronic respiratory failure with hypoxia ([facility]/HCC); Morbid (severe) obesity due to excess calories ([facility]/HCC); Essential (primary) hypertension ([facility]); Class 2 severe obesity due to excess calories with serious comorbidity and body mass index (BMI) of 37.0 to 37.9 in adult ([facility]); Rash; Tobacco dependence syndrome; Anxiety and depression ([facility]); Mixed hyperlipidemia ([facility]); Iron deficiency anemia, unspecified iron deficiency anemia type; Restless leg syndrome; Primary hypertension ([facility]); Gastroesophageal reflux disease without esophagitis; Type 2 diabetes mellitus without complication, without long-term current use of insulin ([facility]); Edema of both lower extremities; Nausea and vomiting, unspecified vomiting type; Diarrhea, unspecified type Start: 12-03-2024 End: 12-03-2024 ambulatory BREA AICHHOLZ Not Available Start: 10-29-2024 End: 10-29-2024 Office outpatient visit 25 minutes Brea Aichholz EXCELSIOR MACHINE FEEDER Work Phone: [facility] Comment on above: Rash (Primary Dx); Essential (primary) hypertension ([facility]); Edema of both lower extremities; Class 2 severe obesity due to excess calories with serious comorbidity and body mass index (BMI) of 37.0 to 37.9 in adult ([facility]); ROLANDO (obstructive sleep apnea); Type 2 diabetes mellitus without complication, without long-term current use of insulin ([facility]); Gastroenteritis; Iron deficiency anemia, unspecified iron deficiency anemia type Start: 10-29-2024 End: 10-29-2024 ambulatory BREA AICHHOLZ Not Available Start: 10-04-2024 End: 10-04-2024 Refill Brea Aichholz EXCELSIOR MACHINE FEEDER Work Phone: [facility] Comment on above: Gastroesophageal ref lux disease without esophagitis Start: 09-11-2024 End: 09-11-2024 Refill Gunjan Freed MA [facility] Comment on above: Mixed hyperlipidemia ([facility]) Start: 09-06-2024 End: 09-06-2024 Refill Brea Aichholz EXCELSIOR MACHINE FEEDER Work Phone: [facility] Comment on above: Osteopenia after men opause (Primary Dx) Start: 08-02-2024 End: 08-03-2024 Refill Brea Aicheatherholz EXCELSIOR MACHINE FEEDER Work Phone: [facility] Comment on above: Type 2 diabetes demetrius itus without complication, without long- term current use of insulin (CMS/HCC) (Primary Dx); Atherosclerosis of aorta (CMS/HCC) Start: 07-24-2024 End: 07-24-2024 Bamboo flowsheet Brea Aichholz EXCELSIOR MACHINE FEEDER Work Phone: [facility] Start: 07-24-2024 End: 07-24-2024 Bamboo flowsheet Brea Aichholz EXCELSIOR MACHINE FEEDER Work Phone: [facility] Start: 07-24-2024 End: 07-24-2024 Office outpatient visit 25 minutes Brea Анна EXCELSIOR MACHINE FEEDER Work Phone: [facility] Comment on above: Anxiety and depressi on (CMS/HCC) (Primary Dx); Mixed hyperlipidemia (CMS/HCC); Restless leg syndrome; Primary hypertension (CMS/HCC); Type 2 diabetes mellitus without complication, without long-term current use of insulin (CMS/HCC); Other insomnia Start: 07-24-2024 End: 07-24-2024 ambulatory BREA AICHHOLZ Not Available Start: 07-23-2024 End: 07-23-2024 ambulatory Mariama Javedjose [facility] Start: 07-23-2024 End: 07-23-2024 Patient encounter procedure Mariama Yumaye [facility] Start: 07-16-2024 End: 07-16-2024 ambulatory AGPCNP-BC Mariama Yumaye [place] Start: 07-16-2024 End: 07-16-2024 Patient encounter procedure Mariama Yumaye [facility] Start: 07-05-2024 End: 07-06-2024 Refill Brea Aichholz EXCELSIOR MACHINE FEEDER Work Phone: [facility] Comment on above: Gastroesophageal ref lux disease without esophagitis Start: 05-23-2024 End: 05-23-2024 ambulatory BREA AICHHOLZ Not Available Start: 02-21-2024 End: 02-21-2024 ambulatory BREA AICHHOLZ Not Available Start: 01-16-2024 End: 01-16-2024 ambulatory Mariama Barcenas Facility[place] Start: 01-16-2024 End: 01-16-2024 Patient encounter procedure Mariama Barcenas [facility] Start: 01-10-2024 End: 01-10-2024 ambulatory BREA AICHHOLZ Not Available Start: 01-09-2024 End: 01-09-2024 ambulatory MD Roby WoodwardNeelima Facility[place] Start: 01-09-2024 End: 01-09-2024 [facility] Start: 12-08-2023 Refill Brea Aichholz EXCELSIOR MACHINE FEEDER Work Phone: [facility] Comment on above: Anxiety and depressi on (CMS/HCC) (Primary Dx); Type 2 diabetes mellitus without complication, without long-term current use of insulin ([facility]); Arthritis Start: 12-05-2023 End: 12-05-2023 Office outpatient visit 25 minutes Brea Aichholz EXCELSIOR MACHINE FEEDER Work Phone: [facility] Comment on above: Other insomnia (Prim fay Dx); ROLANDO (obstructive sleep apnea); COPD mixed type (CMS/HCC); Tobacco dependence syndrome; BMI 37.0-37.9, adult; Anxiety and depression (CMS/HCC); Restless leg syndrome Start: 12-05-2023 End: 12-05-2023 ambulatory BREA AICHHOLZ Not Available Start: 09-25-2023 End: 09-25-2023 Emergency department patient visit Demond Holly [facility] Start: 09-08-2023 End: 09-08-2023 Emergency department patient visit Ramses Hair [facility] Start: 07-20-2023 End: 07-20-20[facility] Start: 07-19-2023 End: 07-19-2023 Patient encounter procedure Mhd Ryan Bob [facility] Start: 06-28-2023 End: 06-28-2023 Patient encounter procedure Ezekiel Anahi [facility] Start: 06-16-2023 End: 06-17-2023 Observation Nimcoclovis BRYCEKWU [facility] Start: 02-23-2023 End: 02-23-[address] SHELDON CARVAJAL . Facility:[facility] Start: 02-01-2023 End: 02-02-2023 ambulatory CORRINAYUDITH GAINES [place] Facility:[facility] Start: 01-12-2023 End: 01-13-2023 ambulatory [employer] WORK[employer] BREA AICHRASHMI Facility:[facility] Start: 01-03-2023 End: 01-04-2023 ambulatory [employer] BREA AICHGIOVANNAZ Facility:[facility] Start: 12-24-2022 End: 12-24-2022 ambulatory TOSHIA [facility] Start: 11-04-2022 End: 11-05-2022 ambulatory [employer] BREA AICHGIOVANNAZ Facility:[facility] Start: 07-28-2022 End: 07-29-2022 ambulatory [employer] BREA AICHGIOVANNAZ Facility:[facility] Start: 04-30-2022 End: 05-01-2022 ambulatory [employer] BREA AICHGIOVANNAZ Facility:[facility] Start: 03-26-2022 End: 03-26-2022 ambulatory [employer] BREA АННА Facility: Start: 06-15-2021 End: 06-16-2021 ambulatory TOSHIA SAM Facility:[facility] Procedures Date Procedure Procedure Detail Performing Clinician Start: 10-29-2024 Hemoglobin glycosyla aura a1c Brea Анна EXCELSIOR MACHINE FEEDER Work Phone: Start: 04-16-2024 Mammography Brea Cheleh olz EXCELSIOR MACHINE FEEDER Work Phone: Start: 04-14-2023 Mammography Brea Cheleh olz EXCELSIOR MACHINE FEEDER Work Phone: Start: 03-31-2020 Colonoscopy Brea Angelyhh olz EXCELSIOR MACHINE FEEDER Work Phone: Start: 05-05-1987 section Elijah Christian Start: 06-20-1984 section Elijah Christian Cyst (disorder) Ezekiel solorzano Comment on above: Removal of cyst of r ight foot. Knee region structur e (body structure) Ezekiel Christian Comment on above: surgery Plan of Treatment Date Care Activity Detail Author Start: 03-31-2030 Screening for malign ant neoplasm of colon [facility] Start: 06-23-2028 Screening for malign ant neoplasm of cervix [facility] Start: 04-29-2025 Hemoglobin A1c measurement Miryam betes: Hemoglobin A1C [facility] Start: 04-16-2025 Screening for malign ant neoplasm of breast Mammogram [facility] Start: 03-15-2025 Urine screening for protein Diabetes: Urine Protein Screening [facility] Start: 01-29-2025 Glaucoma screening Diabetes: R etinopathy Screening [facility] Start: 01-29-2025 End: 01-29-2025 Patient encounter procedure 01/29/2025 9:00 AM EDT Office Visit [facility] [address] [place] [address] Brea Jj NP [address] [place] [address] [facility] Start: 12-26-2024 End: 12-26-2024 Patient encounter procedure 12/26/2024 9:40 AM EST Office Visit [facility] [address] [place] [address] Brea Jj NP [address] [place] [address] [facility] Start: 12-03-2024 End: 12-03-2025 Amylase [Enzymatic activity/volume] in Serum or Plasma Amylase Lab Routine Nausea and vomiting, unspecified vomiting type Diarrhea, unspecified type Weight loss, unintentional Expected: 12/03/2024 (Approximate), Expires: 12/03/2025 [facility] Comment on above: Expected: 12/03/2024 (Approximate), Expires: 12/03/2025 Start: 12-03-2024 End: 12-03-2025 Bacteria identified in Urine by Culture Urine culture (clean catch) Microbiology Routine Nausea and vomiting, unspecified vomiting type Diarrhea, unspecified type Weight loss, unintentional Expected: 12/03/2024 (Approximate), Expires: 12/03/2025 [facility] Comment on above: Expected: 12/03/2024 (Approximate), Expires: 12/03/2025 Start: 12-03-2024 End: 12-03-2025 CBC W Auto Differential panel - Blood CBC and differential Lab Routine Nausea and vomiting, unspecified vomiting type Diarrhea, unspecified type Weight loss, unintentional Expected: 12/03/2024 (Approximate), Expires: 12/03/2025 [facility] Work Phone: Comment on above: Expected: 12/03/2024 (Approximate), Expires: 12/03/2025 Start: 12-03-2024 End: 12-03-2025 Clostridioides difficile toxin A+B tcdA+tcdB genes [Presence] in Stool by PANDA with probe detection Clostridium difficile,EIA Microbiology Routine Nausea and vomiting, unspecified vomiting type Diarrhea, unspecified type Weight loss, unintentional Expected: 12/03/2024 (Approximate), Expires: 12/03/2025 [facility] Comment on above: Expected: 12/03/2024 (Approximate), Expires: 12/03/2025 Start: 12-03-2024 End: 12-03-2025 Comprehensive metabolic 2000 panel - Serum or Plasma Comprehensive metabolic panel Lab Routine Nausea and vomiting, unspecified vomiting type Diarrhea, unspecified type Weight loss, unintentional Expected: 12/03/2024 (Approximate), Expires: 12/03/2025 [facility] Comment on above: Expected: 12/03/2024 (Approximate), Expires: 12/03/2025 Start: 12-03-2024 End: 12-03-2025 Erythrocyte sedimentation rate Sedimentation rate, automated Lab Routine Nausea and vomiting, unspecified vomiting type Diarrhea, unspecified type Weight loss, unintentional Expected: 12/03/2024 (Approximate), Expires: 12/03/2025 [facility] Comment on above: Expected: 12/03/2024 (Approximate), Expires: 12/03/2025 Start: 12-03-2024 End: 12-03-2025 Lipase [Enzymatic activity/volume] in Serum or Plasma Lipase Lab Routine Nausea and vomiting, unspecified vomiting type Diarrhea, unspecified type Weight loss, unintentional Expected: 12/03/2024 (Approximate), Expires: 12/03/2025 [facility] Comment on above: Expected: 12/03/2024 (Approximate), Expires: 12/03/2025 Start: 12-03-2024 End: 12-03-2025 Measurement of occult blood in single stool specimen Occult blood x 1, stool Lab Routine Nausea and vomiting, unspecified vomiting type Diarrhea, unspecified type Weight loss, unintentional Expected: 12/03/2024 (Approximate), Expires: 12/03/2025 [facility] Comment on above: Expected: 12/03/2024 (Approximate), Expires: 12/03/2025 Start: 12-03-2024 End: 12-03-2025 Ova and parasite screen Ova and parasite screen Microbiology Routine Nausea and vomiting, unspecified vomiting type Diarrhea, unspecified type Weight loss, unintentional Expected: 12/03/2024 (Approximate), Expires: 12/03/2025 [facility] Comment on above: Expected: 12/03/2024 (Approximate), Expires: 12/03/2025 Start: 12-03-2024 End: 12-03-2025 Stool culture Stool culture Microbiology Routine Nausea and vomiting, unspecified vomiting type Diarrhea, unspecified type Weight loss, unintentional Expected: 12/03/2024 (Approximate), Expires: 12/03/2025 [facility] Comment on above: Expected: 12/03/2024 (Approximate), Expires: 12/03/2025 Start: 12-03-2024 End: 12-03-2025 Thyrotropin [Units/volume] in Serum or Plasma TSH Lab Routine Weight loss, unintentional Expected: 12/03/2024 (Approximate), Expires: 12/03/2025 [facility] Comment on above: Expected: 12/03/2024 (Approximate), Expires: 12/03/2025 Start: 12-03-2024 End: 12-03-2025 Thyroxine (T4) free [Mass/volume] in Serum or Plasma T4, free Lab Routine Weight loss, unintentional Expected: 12/03/2024 (Approximate), Expires: 12/03/2025 [facility] Comment on above: Expected: 12/03/2024 (Approximate), Expires: 12/03/2025 Start: 12-03-2024 End: 12-03-2025 Triiodothyronine (T3) Free [Mass/volume] in Serum or Plasma T3, free Lab Routine Weight loss, unintentional Expected: 12/03/2024 (Approximate), Expires: 12/03/2025 [facility] Comment on above: Expected: 12/03/2024 (Approximate), Expires: 12/03/2025 Start: 12-03-2024 End: 12-03-2025 Urinalysis complete panel - Urine Urinalysis with reflex microscopic (clean catch) Lab Routine Nausea and vomiting, unspecified vomiting type Diarrhea, unspecified type Weight loss, unintentional Expected: 12/03/2024 (Approximate), Expires: 12/03/2025 [facility] Comment on above: Expected: 12/03/2024 (Approximate), Expires: 12/03/2025 Start: 12-03-2024 End: 12-03-2024 Patient encounter procedure 12/03/2024 9:00 AM EST Office Visit [facility] [address] [place] [address] Brea Jj, [employer] [address] [place] [address] Class 2 severe obesity due to excess calories with serious comorbidity and body mass index (BMI) of 37.0 to 37.9 in adult (CMS/HCC) (Primary Dx); Chronic respiratory failure with hypoxia (CMS/HCC); Morbid (severe) obesity due to excess calories (CMS/HCC); Essential (primary) hypertension (CMS/HCC); Rash; Tobacco dependence syndrome; Anxiety and depression (CMS/HCC) [facility] Comment on above: Class 2 severe obesi ty due to excess calories with serious comorbidity and body mass index (BMI) of 37.0 to 37.9 in adult (CMS/HCC) (Primary Dx); Chronic respiratory failure with hypoxia (CMS/HCC); Morbid (severe) obesity due to excess calories (CMS/HCC); Essential (primary) hypertension (CMS/HCC); Rash; Tobacco dependence syndrome; Anxiety and depression (CMS/HCC) Start: 10-15-2024 End: 10-15-2024 Patient encounter procedure 10/15/2024 9:00 AM EST Office Visit [facility] [address] [place] [address] Brea Jj, [employer] [address] [place] [address] [facility] Start: 09-15-2024 Hemoglobin A1c measurement Miryam betes: Hemoglobin A1C [facility] Start: 08-30-2024 Influenza vaccination Influenza Vacc ine (#1) [facility] Comment on above: Postponed from 07/01 (Patient Does Not Have Time) Start: 07-24-2024 End: 07-24-2024 Patient encounter procedure [facility] Comment on above: Arrived Start: 07-01-2024 Influenza vaccination Influenza Vacc ine (#1) [facility] Start: 04-29-2024 Influenza vaccination Influenza Vacc ine (#1) [facility] Comment on above: Postponed from 07/01 (Patient Refused) Start: 04-14-2024 Screening for malign ant neoplasm of breast Mammogram [facility] Start: 04-14-2024 Urine screening for protein Diabetes: Urine Protein Screening [facility] Start: 01-25-2024 Hemoglobin A1c measurement Miryam betes: Hemoglobin A1C [facility] Start: 01-10-2024 End: 01-10-2024 Patient encounter procedure 01/10/2024 9:00 AM EDT Office Visit [facility] [address] [place] [address] Brea Jj, [employer] [address] [place] [address] [facility] Start: 1985 Screening for malign ant neoplasm of cervix Pap Smear [facility] Start: 1964 Screening for malign ant neoplasm of colon [facility] Immunizations Immunization Date Immunization Notes Care Provider Fa cility 08-13-2024 influenza virus vacc ine, unspecified formulation Brea Aichholz [employer] Work Phone: [facility] 07-16-2024 influenza, seasonal, injectable Brea Aichholz [employer] Work Phone: [facility] 08-12-2023 Influenza, Seasonal, Quadrivalent, Adjuvanted Brea Aichholz [employer] Work Phone: [facility] 08-09-2022 influenza, injectabl e, quadrivalent, contains preservative Brea Aichholz [employer] Work Phone: [facility] 07-18-2020 influenza, injectabl e, quadrivalent, contains preservative Brea Aichholz [employer] Work Phone: [facility] 07-01-2020 influenza, high dose seasonal, preservative-free Brea Aichholz [employer] Work Phone: [facility] Payers Date Payer Category Payer Medicaid [employer] [place] [employer] [id number] 2020-Present [address] [place] [address] [id number] 2020 Medicaid (Managed Care) [facility] MEDICA[facility] [id number] 1964 Unknown [id number] 2.16.840.1.823128.3.579.2. 647 1964 Unknown [id number] 2.16.840.1.348587.3.579.2. 593 1964 Unknown [id number] 2.16.840.1.977800.3.579.2. 593 1964 Unknown [id number] 2.16.840.1.027169.3.579.2. 593 1964 Unknown [id number] 2.16.840.1.768761.3.579.2. 593 1964 Unknown [id number] 2.16.840.1.616708.3.579.2. 593 1964 Unknown [id number] 2.16.840.1.894902.3.579.2. 593 1964 Unknown [id number] 2.16.840.1.025765.3.579.2. 593 1964 Unknown [id number] 2.16.840.1.584855.3.579.2. 593 1964 Unknown [id number] 2.16.840.1.709967.3.579.2. 727 1964 Unknown [id number] 2.16.840.1.867677.3.579.2. 727 1964 Unknown [id number] 2.16.840.1.977837.3.579.2. 727 1964 Unknown [id number] 2.16.840.1.410053.3.579.2. 727 1964 Unknown [id number] 2.16.840.1.148232.3.579.2. 727 1964 Unknown [id number] 2.16.840.1.696968.3.579.2. 727 1964 Unknown [id number] 2.16.840.1.244692.3.579.2. 727 1964 Unknown [id number] 2.16.840.1.668751.3.579.2. 1259 1964 Unknown [id number] 2.16.840.1.082223.3.579.2. 9 1964 Unknown [id number] 2.16.840.1.812732.3.579.2. 1259 1964 Unknown [id number] 2.16.840.1.510266.3.579.2. 9 1964 Unknown [id number] 2.16.840.1.505655.3.579.2. 9 1964 Unknown [id number] 2.16.840.1.260252.3.579.2. 9 1964 Unknown [id number] 2.16.840.1.029819.3.579.2. 1259 1959 Unknown [id number] Social History Date Type Detail Facility Tobacco Former smoker [facility] Comment on above: 1/2 pack a day Tobacco smoking status No Smokin g Status Entered [facility] Start: 04-21-2023 End: 02-21-2024 Sex Assigned At Female [facility] Start: 06-28-2023 End: 10-29-2024 Tobacco smoking status Ex-smoker (finding) [facility] Comment on above: Quit 06/19/23 1/2 pack a day History of tobacco use Current smoker [facility] History of tobacco use Cigarette Smoker [facility] Start: 10-19-2023 End: 02-21-2024 Cigarettes smoked current (pack per day) - Reported 1 [facility] Start: 10-19-2023 End: 10-29-2024 Tobacco use and exposure Smokeless tobacco non-user [facility] Start: 12-05-2023 End: 12-03-2024 Alcohol intake Lifetime non-drinker (finding) [facility] How often to you hav e a drink containing alcohol? Never [facility] How many standard drinks containing alcohol do you have on a typical day? Patient does not drink [facility] Start: 10-19-2023 Tobacco Comment 11-20 cigarettes/day [facility] Start: 10-19-2023 Alcohol Comment caffeine 2-3 c ups per day [facility] Start: 1965 Sex Assigned At Female [facility] Start: 04-20-2023 Gender identity Identifies as female gender (finding) [facility] Start: 04-20-2023 Sexual orientation Heterosexual (fin ding) [facility] Start: 07-23-2024 Tobacco smoking status Heavy t obacco smoker (finding) [facility] Medical Equipment Procedure Code Equipment Code Equipment Origin al Text Equipment Identifier Dates USE ONCE DAILY A S DIRECTED [id number] Start: 03-17-2023 Functional Status Date Assessment Result Facility 09-25-2023 Functional Status N/A [facility] 09-08-2023 Functional Status N/A [facility] 06-16-2023 Functional Status N/A [facility] 06-16-2023 Functional Status [facility] Clinical Notes 12-24-2022 to 12-03-2024 Brea Jj NP - 12/03/2024 9:41 AM Gretchen Jj NP - 12/03/2024 9:31 AM Gretchen Jj NP - 12/03/2024 9:00 AM [facility] - 12/03/2024 9:00 AM ESTPatient Instructions Note Date & Type Note Facility 12-03-2024 History of Present illness Narrative Associated Problem(s): Nausea & vomiting Has zofran for prn Check labs Associated Problem(s): Diarrhea Check sample Check labs ??IBS Fu in 3 weeks Images from the original note were not included. Aliya Moore is a 59 y.o. female presents with chief complaint of Rash HPI: Rash: present 2 months, itching, last visit trialed kenalog cream absolutely no change in symptoms NVD and abd pain: has had 3 episodes of this over the last month or so: no fever, 1 st +NV, then +abd cramping, then diarrhea. No blood stools/or emesis. Emesis is either food or phlegm, no fever, or night sweats, .Usually symptoms last anywhere from 3-5 days. No other people in the home get these symptoms. She has EGD/colonoscopy in the past 03/31/2020: gastritis, and no acute colon findings. of note she has lost about 15 pounds since her last visit. She does report dicyclomine has helped in the past No SI/HI +stressors with her health and as well, does not feel dose changes are needed SUBJECTIVE: MEDICATIONS: Current Outpatient Medications Medication Instructions Aspirin Low Dose 81 mg, Daily atorvastatin (LIPITOR) 40 mg, Oral, Nightly Bevespi Aerosphere 9-4.8 MCG/ACT aerosol 2 puffs, 2 times daily busPIRone (BUSPAR) 15 mg, Oral, 2 times daily Calcium Carb-Cholecalciferol 600-5 MG-MCG tablet 1 tablet, 2 times daily celecoxib (CELEBREX) 200 mg, Daily clonazePAM (KLONOPIN) 0.5 mg, Oral, Nightly dicyclomine (BENTYL) 20 mg, Oral, Every 8 hours PRN DULoxetine (CYMBALTA) 60 mg, Oral, Daily ferrous sulfate (FEROSUL) 325 mg, Oral, Daily with breakfast, Take 1 tablet by mouth Daily Flovent HFA 110 MCG/ACT inhaler 2 puffs, 2 times daily fluticasone (Flonase) 50 MCG/ACT nasal spray 2 sprays, Daily furosemide (LASIX) 20 mg, Daily gabapentin (NEURONTIN) 300 mg, Oral, Daily ipratropium-albuterol (Duo-Neb) 0.5-2.5 mg/3 mL nebulizer solution INHALE 3ML FOUR TIMES A DAY lamoTRIgine (LAMICTAL) 50 mg, Oral, Nightly lisinopril-hydroCHLOROthiazide 20-25 MG tablet 1 tablet, Oral, Daily ondansetron ODT (ZOFRAN-ODT) 4 mg, Every 8 hours PRN OneTouch Ultra test strip USE ONCE DAILY DIRECTED pantoprazole (PROTONIX) 40 mg, Oral, Daily before breakfast, Do not crush, chew, or split. pioglitazone (ACTOS) 15 mg, Oral, Daily potassium chloride CR (Klor-Con) 10 MEQ ER tablet 10 mEq, Oral, Daily, Take 10 mEq by mouth in the morning. pramipexole (MIRAPEX) 0.5 mg, Oral, Nightly theophylline ER (Franki-Dur) 300 MG 12 hr tablet TAKE 1 12 TABLETS BY MOUTH EVERY 12 HOURS Ventolin HFA 108 (90 Base) MCG/ACT inhaler INHALE 2 PUFFS BY MOUTH FOR SHOTNESS OF BREATH EVERY 4 HOURS NEEDED ALLERGIES: No Known Allergies REVIEW OF SYMPTOMS: Review of Systems Constitutional: Positive for unexpected weight change. Negative for appetite change, chills and fever. HENT: Negative for congestion, ear pain and sore throat. Eyes: Negative for pain, discharge, redness and visual disturbance. Respiratory: Positive for cough and shortness of breath. Negative for wheezing. Cardiovascular: Negative for chest pain, palpitations and leg swelling. Gastrointestinal: Positive for diarrhea, nausea and vomiting. Negative for abdominal pain (cramping), blood in stool and constipation. Genitourinary: Negative for difficulty urinating, dysuria and frequency. Musculoskeletal: Positive for arthralgias. Negative for back pain, joint swelling and myalgias. Skin: Positive for rash. Negative for wound. Neurological: Negative for dizziness, tremors, seizures, syncope and headaches. Psychiatric/Behavioral: Negative for behavioral problems, self-injury and suicidal ideas. The patient is nervous/anxious. Depression Hematological: Does not bruise/bleed easily. Endocrine: Negative for polydipsia, polyphagia and polyuria. Allergic/Immunologic: Negative for environmental allergies and food allergies. PAST MEDICAL HISTORY Past Medical History: Diagnosis Date Anxiety and depression ([facility]) 10/12/2023 Arthritis Class 2 severe obesity due to excess calories with serious comorbidity in adult ([facility]) 10/19/2023 Mixed hyperlipidemia ([facility]) 10/12/2023 ROLANDO (obstructive sleep apnea) Other insomnia 10/19/2023 Primary hypertension ([facility]) 10/12/2023 Restless leg syndrome 10/12/2023 Type 2 diabetes mellitus without complication, without long-term current use of insulin ([facility]) 10/19/2023 Past Surgical History: Procedure Laterality Date SECTION, LOW TRANSVERSE x2 COLONOSCOPY FOOT SURGERY 01/08/2020 e/o RT foot ganglion cyst, repair tendon HEART CATH 2015 WNL KNEE SURGERY Left arthroscopy TUBAL LIGATION Bilateral BTL family history includes COPD in her mother; Heart disease in her father. OBJECTIVE: Visit Vitals BP 110/62 (BP Location: Left arm, Patient Position: Sitting, BP Cuff Size: Adult long) Pulse (!) 112 Temp 98.5 F (Temporal) Resp 20 Ht 5' 9 Wt 248 lb 6.4 oz SpO2 93% BMI 36.68 kg/m OB Status Postmenopausal Smoking Status Former BSA 2.35 m Physical Exam Vitals and nursing note [...] Effort: Pulmonary effort is normal. Breath sounds: Wheezing (few faint, exp) present. Comments: Moist cough Abdominal: General: Bowel sounds are normal. There is no distension. Palpations: Abdomen is soft. There is no mass. Tenderness: There is no abdominal tenderness (mild generalized). There is no guarding or rebound. Hernia: No hernia is present. Musculoskeletal: General: Normal range of motion. Cervical back: Normal range of motion and neck supple. Right lower leg: No edema. Left lower leg: No edema. Skin: General: Skin is warm and dry. Capillary Refill: Capillary refill takes 2 to 3 seconds. Findings: No rash (red raised, bilat shins, +blanches). Neurological: General: No focal deficit present. Mental Status: She is alert and oriented to person, place, and time. Psychiatric: Mood and Affect: Mood normal. Behavior: Behavior normal. Thought Content: Thought content normal. Judgment: Judgment normal. ASSESSMENT AND PLAN: Follow up in about 3 weeks (around 12/24/2024) for Recheck. Problem List Items Addressed This Visit Restless leg syndrome Relevant Medications gabapentin (Neurontin) 300 MG capsule pramipexole (Mirapex) 0.5 MG tablet Anxiety and depression (CMS/HCC) Many life stressors with her health, and her 's declining health as well Current meds: buspar, klonopin, and duloxetine OARRS reviewed GAYLE 7=4 PHQ 9=5 Relevant Medications busPIRone (Buspar) 15 MG tablet DULoxetine (Cymbalta) [address] capsule lamoTRIgine (LaMICtal) 25 MG tablet Essential (primary) hypertension (CMS/HCC) Please check blood pressure daily and record DASH diet Limit caffeine Take medication as directed Contact office if chest pain, pressure, dizziness, shortness of breath, swelling legs Recommend slow position changes Current med: lisinopril/hydrochlorothiazide, Relevant Medications lisinopril-hydroCHLOROthiazide 20-25 MG tablet Mixed hyperlipidemia (CMS/HCC) Relevant Medications atorvastatin (Lipitor) 40 MG tablet Class 2 severe obesity due to excess calories with serious comorbidity in adult (CMS/HCC) Discussed with patient their BMI (actual, verses recommended). We have also discussed lifestyle modifications: attempts to perform physical activity as chronic conditions allow, also to monitor dietary intake: increasing protein/fruits/veggies and lowering carb intake (unless contraindicated). Limit sodas, juices, and sugary drinks. Type 2 diabetes mellitus without complication, without long-term current use of insulin (CMS/HCC) Relevant Medications pioglitazone (Actos) 15 MG tablet Tobacco dependence syndrome Edema of both lower extremities Relevant Medications potassium chloride CR (Klor-Con) 10 MEQ ER tablet RESOLVED: Morbid (severe) obesity due to excess calories (CMS/HCC) Chronic respiratory failure with hypoxia (CMS/HCC) Has oxygen therapy Continue inhalers Follows with Dr Gaines Gastroesophageal reflux disease without esophagitis Relevant Medications pantoprazole (ProtoNix) 40 MG EC tablet Rash Present for a few months, primarily itchiness At last visit ordered kenalog cream, trial steroid cream Rash is not any better Relevant Orders Ambulatory referral to Dermatology JONNY (iron deficiency anemia) Relevant Medications ferrous sulfate (FeroSul) 325 (65 Fe) MG tablet Nausea & vomiting Has zofran for prn Check labs Relevant Medications dicyclomine (Bentyl) 20 MG tablet Other Relevant Orders CBC and differential Comprehensive metabolic panel Amylase Lipase Sedimentation rate, automated Occult blood x 1, stool Stool culture Ova and parasite screen Clostridium difficile,EIA Urinalysis with reflex microscopic (clean catch) Urine culture (clean catch) Diarrhea Check sample Check labs ??IBS Fu in 3 weeks Relevant Medications dicyclomine (Bentyl) 20 MG tablet Other Relevant Orders CBC and differential Comprehensive metabolic panel Amylase Lipase Sedimentation rate, automated Occult blood x 1, stool Stool culture Ova and parasite screen Clostridium difficile,EIA Urinalysis with reflex microscopic (clean catch) Urine culture (clean catch) Weight loss, unintentional - Primary Relevant Orders CBC and differential Comprehensive metabolic panel Amylase Lipase Sedimentation rate, automated Occult blood x 1, stool Stool culture Ova and parasite screen Clostridium difficile,EIA Urinalysis with reflex microscopic (clean catch) Urine culture (clean catch) Other Visit Diagnoses Primary hypertension (CMS/HCC) Relevant Medications lisinopril-hydroCHLOROthiazide 20-25 MG tablet Pt is here for a persistent rash that has not gotten any better nor worse, rash is on both lower right and leg leg. Pt has been using cream x2 daily Pt has been sick off and on since 10/24 This is the third time now, started Tuesday morning with nausea, vomiting, diarrhea, cold and hot, stomach cramps. Pt had gone to the hospital with her first episode that lasted 5 days and was told that she had a virus that it needed to work its course Associated Problem(s): Anxiety and depression (CMS/HCC) Many life stressors with her health, and her 's declining health as well Current meds: buspar, klonopin, and duloxetine OARRS reviewed GAYLE 7=4 PHQ 9=5 Associated Problem(s): Rash Present for a few months, primarily itchiness At last visit ordered kenalog cream, trial steroid cream Rash is not any better Associated Problem(s): Class 2 severe obesity due to excess calories with serious comorbidity in adult (CMS/HCC) Discussed with patient their BMI (actual, verses recommended). We have also discussed lifestyle modifications: attempts to perform physical activity as chronic conditions allow, also to monitor dietary intake: increasing protein/fruits/veggies and lowering carb intake (unless contraindicated). Limit sodas, juices, and sugary drinks. Associated Problem(s): Essential (primary) hypertension (CMS/HCC) Please check blood pressure daily and record DASH diet Limit caffeine Take medication as directed Contact office if chest pain, pressure, dizziness, shortness of breath, swelling legs Recommend slow position changes Current med: lisinopril/hydrochlorothiazide, Associated Problem(s): Chronic respiratory failure with hypoxia (CMS/HCC) Has oxygen therapy Continue inhalers Follows with Dr Gaines documented in this encounter [facility] 12-03-2024 Instructions Brea Jj NP - 12/03/2024 9:00 AM EST Check labs and stool samples Follow up in 3 weeks Dermatology referral as well documented in this encounter [facility] 10-29-2024 History of Present illness Narrative Associated Problem(s): Gastroenteritis Was in the ER on 10/27/24, see notes, was given IV fluids Resolved at this time Associated Problem(s): Rash Present for a month, primarily itchiness Will trial steroid cream, bid for 14 days, pt to call office if she still has rash Could just be extra dry and irritated from the itch/scratch cycle ?eczema? Pt has red dry itchy patches on both shins she has had for a month Pt has been using lotions, creams Images from the original note were not included. Aliya Moore is a 58 y.o. female presents with chief complaint of Rash HPI: Rash This is a new problem. The current episode started more than 1 month ago. The problem has been gradually worsening since onset. The affected locations include the left lower leg and right lower leg. The rash is characterized by dryness, redness, scaling and itchiness. She was exposed to nothing. Associated symptoms include shortness of breath. Pertinent negatives include no congestion, cough, diarrhea, eye pain, fatigue, fever, nail changes, sore throat or vomiting. Past treatments include moisturizer. The treatment provided no relief. Her past medical history is significant for allergies. Diabetes She presents for her follow-up diabetic visit. She has type 2 diabetes mellitus. Her disease course has been stable. Hypoglycemia symptoms include nervousness/anxiousness. Pertinent negatives for hypoglycemia include no confusion, dizziness, headaches, seizures or tremors. Associated symptoms include polydipsia and polyuria. Pertinent negatives for diabetes include no blurred vision, no chest pain, no fatigue, no foot paresthesias, no polyphagia and no visual change. There are no hypoglycemic complications. Symptoms are stable. Pertinent negatives for diabetic complications include no CVA, heart disease, nephropathy or peripheral neuropathy. Risk factors for coronary artery disease include diabetes mellitus, dyslipidemia, hypertension, sedentary lifestyle, post-menopausal and obesity. Current diabetic treatment includes oral agent (dual therapy). An YUSUF inhibitor/angiotensin II receptor aleks is being taken. 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 Hypertension This is a chronic problem. The current episode started more than 1 year ago. The problem is unchanged. The problem is controlled. Associated symptoms include anxiety and shortness of breath. Pertinent negatives include no blurred vision, chest pain, headaches, malaise/fatigue, palpitations or peripheral edema. There are no associated agents to hypertension. Risk factors for coronary artery disease include diabetes mellitus, dyslipidemia, obesity, post-menopausal state, sedentary lifestyle, smoking/tobacco exposure and stress. Past treatments include YUSUF inhibitors and diuretics. The current treatment provides significant improvement. There are no compliance problems. There is no history of CVA. Depression Visit Type: follow-up Patient presents with the following symptoms: depressed mood, nervousness/anxiety and shortness of breath. Patient is not experiencing: anhedonia, chest pain, confusion, dry mouth, excessive worry, fatigue, feelings of hopelessness, feelings of worthlessness, insomnia, irritability, palpitations, suicidal ideas, suicidal planning and thoughts of . Frequency of symptoms: occasionally Severity: mild Compliance with medications: 76-100% Anxiety Presents for follow-up visit. Symptoms include depressed mood, nervous/anxious behavior and shortness of breath. Patient reports no chest pain, confusion, dizziness, dry mouth, excessive worry, insomnia, irritability, nausea, palpitations or suicidal ideas. Symptoms occur most days. The severity of symptoms is mild. Compliance with medications is 76-100%. SUBJECTIVE: MEDICATIONS: Current Outpatient Medications Medication Instructions aspirin (ASPIRIN LOW DOSE) 81 mg, Oral, Daily atorvastatin (LIPITOR) 40 mg, Oral, Nightly Bevespi Aerosphere 9-4.8 MCG/ACT aerosol 2 puffs, 2 times daily busPIRone (BUSPAR) 15 mg, Oral, 2 times daily Calcium Carb-Cholecalciferol 600-5 MG-MCG tablet 1 tablet, 2 times daily celecoxib (CELEBREX) 200 mg, Daily clonazePAM (KLONOPIN) 0.5 mg, Oral, Nightly DULoxetine (CYMBALTA) 60 mg, Oral, Daily Eliquis 5 MG tablet TAKE TWO TABLETS BY MOUTH TWICE A DAY FOR 6 DAYS, THE TAKE ONE TABLET TWICE A DAY FOR 30 DAYS FeroSul 325 (65 Fe) MG tablet 1 tablet, Daily Flovent HFA 110 MCG/ACT inhaler 2 puffs, 2 times daily fluticasone (Flonase) 50 MCG/ACT nasal spray INSTILL 2 SPRAYS IN EACH NOSTRIL ONCE DAILY furosemide (LASIX) 20 mg, Daily gabapentin (NEURONTIN) 300 mg, Oral, Daily hyoscyamine (LEVSIN) 0.125 mg, Every 6 hours PRN ipratropium-albuterol (Duo-Neb) 0.5-2.5 mg/3 mL nebulizer solution INHALE 3ML FOUR TIMES A DAY lamoTRIgine (LAMICTAL) 50 mg, Oral, Nightly lisinopril-hydroCHLOROthiazide 20-25 MG tablet 1 tablet, Oral, Daily Multiple Vitamin (Multivitamin) tablet 1 tablet, Oral, Daily ondansetron ODT (ZOFRAN-ODT) 4 mg, Every 8 hours PRN OneTouch Ultra test strip USE ONCE DAILY DIRECTED pantoprazole (PROTONIX) 40 mg, Oral, Daily before breakfast, Do not crush, chew, or split. pioglitazone (ACTOS) 15 mg, Oral, Daily potassium chloride CR (Klor-Con) 10 MEQ ER tablet 10 mEq, Daily pramipexole (MIRAPEX) 0.5 mg, Oral, Nightly theophylline ER (Franki-Dur) 300 MG 12 hr tablet TAKE 1 12 TABLETS BY MOUTH EVERY 12 HOURS Ventolin HFA 108 (90 Base) MCG/ACT inhaler INHALE 2 PUFFS BY MOUTH FOR SHOTNESS OF BREATH EVERY 4 HOURS NEEDED ALLERGIES: No Known Allergies REVIEW OF SYMPTOMS: Review of Systems Constitutional: Negative for appetite change, chills, fatigue, fever, irritability and malaise/fatigue. HENT: Negative for congestion, ear pain and sore throat. Eyes: Negative for blurred vision, pain, discharge, redness and visual disturbance. Respiratory: Positive for shortness of breath. Negative for cough and wheezing. Cardiovascular: Negative for chest pain, palpitations and leg swelling. Gastrointestinal: Negative for abdominal pain, blood in stool, constipation, diarrhea, nausea and vomiting. Genitourinary: Negative for difficulty urinating, dysuria and frequency. Musculoskeletal: Negative for arthralgias, back pain, joint swelling and myalgias. Skin: Positive for rash. Negative for nail changes and wound. Neurological: Negative for dizziness, tremors, seizures, syncope and headaches. Psychiatric/Behavioral: Positive for depression. Negative for behavioral problems, confusion, self-injury and suicidal ideas. The patient is nervous/anxious. The patient does not have insomnia. Depression Hematological: Does not bruise/bleed easily. Endocrine: Positive for polydipsia and polyuria. Negative for polyphagia. Allergic/Immunologic: Negative for environmental allergies and food allergies. PAST MEDICAL HISTORY Past Medical History: Diagnosis Date Anxiety and depression ([facility]) 10/12/2023 Arthritis Class 2 severe obesity due to excess calories with serious comorbidity in adult ([facility]) 10/19/2023 Mixed hyperlipidemia ([facility]) 10/12/2023 ROLANDO (obstructive sleep apnea) Other insomnia 10/19/2023 Primary hypertension ([facility]) 10/12/2023 Restless leg syndrome 10/12/2023 Type 2 diabetes mellitus without complication, without long-term current use of insulin ([facility]) 10/19/2023 Past Surgical History: Procedure Laterality Date SECTION, LOW TRANSVERSE x2 COLONOSCOPY FOOT SURGERY 01/08/2020 e/o RT foot ganglion cyst, repair tendon HEART CATH 2014 WNL KNEE SURGERY Left arthroscopy TUBAL LIGATION Bilateral BTL family history includes COPD in her mother; Heart disease in her father. OBJECTIVE: Visit Vitals BP 118/68 (BP Location: Left arm, Patient Position: Sitting, BP Cuff Size: Large adult long) Pulse 96 Temp 97.8 F (Temporal) Resp 18 Ht 5' 9 Wt 263 lb 3.2 oz SpO2 93% BMI 38.87 kg/m OB Status Postmenopausal Smoking Status Former BSA 2.41 m Physical Exam Vitals and nursing note [...] normal. Breath sounds: Normal breath sounds. No wheezing or rales. Abdominal: General: Bowel sounds are normal. There [...] takes 2 to 3 seconds. Findings: No rash (erythema, dry, scaley rash, no pustules bilat shins). Neurological: General: No focal deficit present. Mental Status: She is alert and oriented to person, place, and time. Psychiatric: Mood and Affect: Mood normal. Behavior: Behavior normal. Thought Content: Thought content normal. Judgment: Judgment normal. ASSESSMENT AND PLAN: No follow-ups on file. Problem List Items Addressed This Visit Essential (primary) hypertension ([facility]) - Primary Please check blood pressure daily and record DASH diet Limit caffeine Take medication as directed Contact office if chest pain, pressure, dizziness, shortness of breath, swelling legs Recommend slow position changes Current med: lisinopril/hydrochlorothiazide, Class 2 severe obesity due to excess calories with serious comorbidity in adult ([facility]) Discussed with patient their BMI (actual, verses recommended). We have also discussed lifestyle modifications: attempts to perform physical activity as chronic conditions allow, also to monitor dietary intake: increasing protein/fruits/veggies and lowering carb intake (unless contraindicated). Limit sodas, juices, and sugary drinks. Type 2 diabetes mellitus without complication, without long-term current use of insulin ([facility]) Check blood sugars daily, notify if <70 or >200. Take medications (pills or insulin) as directed. Monitor for s/s of hypoglycemia (sweaty, dizziness, nausea, vomiting, or shakiness). Watch for increase in thirst, urination, or appetite. Inspect feet frequently monitoring for open wounds , and also recommend yearly eye exam. Pt should attempt to remain as physically active as chronic conditions allow, as well as trying to follow a diet low in carbohydrates, and simple sugars. Current meds: asa, statin, yusuf/hydrochlorothiazide, pioglitazone A1c 5.9% Relevant Orders POCT glycosylated hemoglobin (Hb A1C) docked device ROLANDO (obstructive sleep apnea) You have a diagnosis of obstructive sleep apnea. It is recommended that you wear your PAP device any time while in bed sleeping. Not using the PAP device can increase your risk of elevated/uncontrolled high blood pressure, atrial fibrillation, heart attack, stroke, or sudden . Edema of both lower extremities Takes lasix prn Rash Present for a month, primarily itchiness Will trial steroid cream, bid for 14 days, pt to call office if she still has rash Could just be extra dry and irritated from the itch/scratch cycle ?eczema? Relevant Medications triamcinolone (Kenalog) 0.1 % cream Gastroenteritis Was in the ER on 10/27/24, see notes, was given IV fluids Resolved at this time JONNY (iron deficiency anemia) Relevant Medications ferrous sulfate (FeroSul) 325 (65 Fe) MG tablet Associated Problem(s): Type 2 diabetes mellitus without complication, without long-term current use of insulin ([facility]) Check blood sugars daily, notify if <70 or >200. Take medications (pills or insulin) as directed. Monitor for s/s of hypoglycemia (sweaty, dizziness, nausea, vomiting, or shakiness). Watch for increase in thirst, urination, or appetite. Inspect feet frequently monitoring for open wounds , and also recommend yearly eye exam. Pt should attempt to remain as physically active as chronic conditions allow, as well as trying to follow a diet low in carbohydrates, and simple sugars. Current meds: asa, statin, yusuf/hydrochlorothiazide, pioglitazone A1c 5.9% Associated Problem(s): ROLANDO (obstructive sleep apnea) You have a diagnosis of obstructive sleep apnea. It is recommended that you wear your PAP device any time while in bed sleeping. Not using the PAP device can increase your risk of elevated/uncontrolled high blood pressure, atrial fibrillation, heart attack, stroke, or sudden . Associated Problem(s): Class 2 severe obesity due to excess calories with serious comorbidity in adult (CMS/HCC) Discussed with patient their BMI (actual, verses recommended). We have also discussed lifestyle modifications: attempts to perform physical activity as chronic conditions allow, also to monitor dietary intake: increasing protein/fruits/veggies and lowering carb intake (unless contraindicated). Limit sodas, juices, and sugary drinks. Associated Problem(s): Edema of both lower extremities Takes lasix prn Associated Problem(s): Essential (primary) hypertension ([facility]) Please check blood pressure daily and record DASH diet Limit caffeine Take medication as directed Contact office if chest pain, pressure, dizziness, shortness of breath, swelling legs Recommend slow position changes Current med: lisinopril/hydrochlorothiazide, documented in this encounter [facility] 10-29-2024 Instructions Brea Jj NP - 10/29/2024 6:00 PM EST No dose changes in meds Will trial steroid cream twice a day to both legs for 14 days, if not better call me documented in this encounter [facility] 07-24-2024 History of Present illness Narrative Associated Problem(s): Anxiety and depression (CMS/HCC) Continue current meds [...] Medical History: Diagnosis Date Anxiety and depression ([facility]) 10/12/2023 Arthritis Class 2 severe obesity due to excess calories with serious comorbidity in adult ([facility]) 10/19/2023 Mixed hyperlipidemia ([facility]) 10/12/2023 ROLANDO (obstructive sleep apnea) Other insomnia 10/19/2023 Primary hypertension ([facility]) 10/12/2023 Restless leg syndrome 10/12/2023 Type 2 diabetes mellitus without complication, without long-term current use of insulin ([facility]) 10/19/2023 Past Surgical History: Procedure [...] 20-25 MG tablet documented in this encounter [facility] 07-23-2024 Note Oncology Progress No te Chief Complaint Acute PE; here to go over results. Diagnoses 1. History of pulmonary embolism (Z86.711: Personal history of pulmonary embolism) Ordered: ONC Office Visit 30 Min 2. Iron deficiency anemia (D50.9: Iron deficiency anemia, unspecified) Oncological History/ROS/PE/Assessment and Plan Aliya was referred to our hematology office at [facility] for Thrombophilia work up and decision about duration of anticoagulation for the acute PE diagnosed on . She is a 57-year-old female cigarette smoker with history of hypertension, gvu-kwhuyyk-wzbqonaoz diabetes mellitus, obesity, chronic hypoxic respiratory failure on 3 L home oxygen, and depression who presented on 06/16/[address] [facility] ER with complaints of right-sided chest pain [...] cramping a lot. has had colonoscopy at [facility] 07/23/24 enregy has been stable, pretty [...] [address] scan at [facility] by her pcp, told everything looks good, no concerns. Plans these yearly for surveillance 3. iron deficiency anemia December 2023 iron studies low, will initiate oral iron supplementation. Will repeat iron studies in about 6 months, (more content not included)... [facility] 01-18-2024 Hospital Discharge instructions Follow Up Care 01/18/2024 12:42:29 With:Swapna ANGUIANO, Mariama Chen, ONC Address: [facility] [place] [address]- [phone] When: Unknown Comments:cbc, cmp, iron studies in 6mo and 1yrfollow-up in 1yrcontinue ferrous sulfate 325mg daily [facility] 01-16-2024 Evaluation + Plan note Diagnostic Tests PendingMethylmalonic Acid 01/16/24 [facility] 12-05-2023 History of Present illness Narrative Associated [...] Medical History: Diagnosis Date Anxiety and depression ([facility]) 10/12/2023 Arthritis Class 2 severe obesity due to excess calories with serious comorbidity in adult ([facility]) 10/19/2023 COPD (chronic obstructive pulmonary disease) ([facility]) Fibrocystic breast disease Mixed hyperlipidemia ([facility]) 10/12/2023 ROLANDO (obstructive sleep apnea) Other insomnia 10/19/2023 Primary hypertension ([facility]) 10/12/2023 Restless leg syndrome 10/12/2023 Type 2 diabetes mellitus without complication, without long-term current use of insulin ([facility]) 10/19/2023 Past Surgical History: Procedure [...] BMI 37.0-37.9, adult documented in this encounter [facility] 09-25-2023 Hospital Discharge instructions Patient Education [...] Follow these instructions at home: Medicines Take otsn-kko-agadrpo and prescription medicines only as told by [...] important. Where to find more information [employer] [place] [employer] and [employer]estive [employer]ney Diseases: [...] provider. Document Revised: 09/08/2020 Document Reviewed: 09/08/2020 [employer] Patient Education 2022 oboxo. Follow Up Care 09/25/2023 18:11:16 With:[facility] Address: [address] [place] [address] 3, [address] Floor, [address] [place] [address]- [phone] Business (1) When:09/28/2023 21:47:26 With:BREA JJ Address: [address] [place] [phone] Business (1) When:Within 3 Day(s) [facility] 09-25-2023 Evaluation + Plan note Extrac aura from: Title:ED Note Author:Moses Fischer DO Date :09/25/23 AP (abdominal pain) (R10.9: Unspecified abdominal pain) Cholelithiasis (K80.20: Calculus of gallbladder without cholecystitis without obstruction) N&V (nausea and vomiting) (R11.2: Nausea with vomiting, unspecified) Orders: dicyclomine, 10 mg = 1 cap(s), Oral, QID, X 7 day(s), # 28 cap(s), Refills(s) 0, Pharmacy: [facility], 175, cm, 09/25/23 18:25:00 EST, Height/Length [...] q8hr, # 12 tab(s), Refills(s) 0, Pharmacy: [facility], 175, cm, 09/25/23 18:25:00 EST, Height/Length [...] Comprehensive Metabolic Panel 12/27/23 * D-Dimer 12/27/23 [facility]11-09-2023 Hospital Discharge instructions Patient Education [...] Follow these instructions at home: Medicines Take ginj-mnf-jerlasp and prescription medicines only as told by [...] provider. Document Revised: 12/31/2021 Document Reviewed: 12/31/2021 [employer] Patient Education 2022 oboxo. Follow Up Care 09/08/2023 16:32:40 With:BREA АННА Address: [address] [place] [phone] Business (1) When:Within 3 Day(s) [facility]11-09-2023 Evaluation + Plan noteExtracted from: [...] Comprehensive Metabolic Panel 12/27/23 * D-Dimer 12/27/23 [facility] Chief Complaint: Patient here for 6 mo follow up hypertension and coronary-myocardial bridge. Says she was admitted to [facility] in [place] for chest pain. Says she was diagnosed with PE. 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 [...] history of COPD (chronic obstructive pulmonary disease) ([facility]), Diabetes mellitus ([facility]), Hyperlipidemia, Hypertension, and Sleep apnea. [...] edema History of pu (more content not included)...[facility] 07-19-2023 Hospital Discharge instructions Follow Up Care 07/19/2023 10:53:55 With:Swapna ANGUIANO, Mariama Chen, ONC Address: [address] [address] [phone] When: Unknown Comments:iron studies, b12, folate, mma todayfollow-up in 6mo with [employer] [facility]08-29-2023 Hospital Discharge instructions Follow Up Care 06/28/2023 11:35:56 With:Roby Bob Address: [address] [address] [phone] Business (1) When: Unknown Comments:Continue ELiquis for 6 months total.D dimer, CBCD and CMP end of December 2023.RTC end of December,sooner if new SOB or CP or Leg pain or swelling or bleeding. [facility]08-18-2023 Hospital Discharge instructions Patient Education 06/17/2023 14:17:33 [...] Follow these instructions at home: Medicines Take tayo-iky-nxehhbk and prescription medicines only as told by [...] is important. Where to find more information [place] [employer]: www.lung.org Centers for Disease Control [...] provider. Document Revised: 09/18/2021 Document Reviewed: 09/18/2021 [employer] Patient Education 2022 oboxo. Follow Up Care 06/16/2023 15:48:06 With:BREA JJ Address: [address] [place] [address] [phone] Business (1) When:1 week Comments:A voice message is left with this office with your information so they can call you for a follow upappiontment. Please call them if you do not hear from them in a few days. Thank you. With:Ezekiel Christian Address: [facility] [address] [place] [address]- When:06/28/2023 11:00:00 [facility]08-18-2023 Evaluation + Plan noteExtracted from: [...] puff(s), Inhalation, BID fluticasone Nasal 0.05 mg/inh [place], 2 spray(s), Nasal, Daily furosemide 20 mg Tab, 20 mg= 1 tab(s), Oral, Daily gabapentin 300 mg Cap, 300 mg= 1 cap(s), Oral, BID hydrochlorothiazide-lisinopril 25 mg-20 mg Tab, 1 tab(s), Oral, Daily lamotrigine 25 mg Tab, 25 mg= 1 tab(s), Oral, BID pioglitazone 15 mg Tab, 15 mg= 1 tab(s), Oral, Daily Potassium Chloride (Sui-Qiui-Avp 10) 10 mEq oral tablet, extended release [...] Ezekiel Christian 06/28/2023 11:[address] [facility] [address] [place] [phone]- Additional Instructions: BREA JJ Within 1 week [address] [place] [address] [phone] Business (1) Additional Instructions: A voice message is left with this office with your information so they can call you for a follow up appiontment. Please call them if you do not hear from them in a few days. Thank you. Pulmonary Embolism Extracted from: Title:Admission H & P Author:Nimco BARRIENTOS MDfo Date:06/16/23 57-year-old female cigarette smoker with history of hypertension, eid-cutldfz-vbbmphclo diabetes mellitus, obesity, chronic hypoxic respiratory failure [...] Ordered: Initial Hospital Care/Day High 75 Minutes 87885 2. Acute pulmonary embolism (I26.99: Other pulmonary [...] Ordered: Initial Hospital Care/Day High 75 Minutes 53191 3. Sinus tachycardia (R00.0: Tachycardia, unspecified) Secondary to above acute pulmonary embolism. Monitor on telemetry. Ordered: Initial Hospital Care/Day High 75 Minutes 42362 4. COPD without exacerbation (J44.9: Chronic obstructive pulmonary disease, unspecified) Supportive care. Continue on nebulizer treatments. Ordered: Initial Hospital Care/Day High 75 Minutes [id number] 5. Hypertension (I10: Essential (primary) hypertension) We will verify home medications and resume accordingly. Ordered: Initial Hospital Care/Day High 75 Minutes [id number] 6. Diabetes mellitus (E11.9: Type 2 diabetes [...] deep vein thrombosis (DVT) prophylaxis (Z79.899: Other pen[facility]iary (current) drug therapy) Eliquis. The patient will [...] made to ensure accuracy. However inadvertent computerized panel gluer errors may be present. Alex Barrientos. Hospitalist. [...] deep vein thrombosis (DVT) prophylaxis (Z79.899: Other penitentiary (current) drug therapy) 4. COPD without exacerbation [...] Appointments Appointment Date:06/28/2023 11:00:00 AM Scheduled [facility]: [facility] Office Visit [address]08-18-2023 Hospital Discharge instructions Follow Up Care 06/17/2023 09:42:41 With:Roby Bob Address: [facility] [address] [place] [phone] Business (1) When: Unknown Comments:THrombophilia labs now with D dimer.D dimer in 3 weeks if D dimer from now is still high.Continue Eliquis 5 mg twice daily for minimum of 6 months.RTC in 3 weeks for results. [facility]02-24-2023 NoteStable, [facility] NoteCurrently well controlled with lasix [facility]02-24-2023 NoteNo concerning symptoms, overall she is doing well.[facility]02-24-2023 Note Hypertension is well controlled 102/62 Continue lisinopril/HCTZ, lasix Renal function [facility]Un[facility]-2023 NotePatient here for 6 mo follow up hypertension and myocardial bridge of coronary artery. Had labs in Jul 2022. Denies chest pain and lightheadedness. Review of Systems Cardiovascular: Positive for dyspnea on exertion. Respiratory: Positive for cough and shortness of breath. Musculoskeletal: Positive for arthritis, back pain and joint pain. Neurological: Positive for headaches. All other systems reviewed and are negative.[facility] 12-24-2022 NoteUTP CARDIOLOGY PROGRESS NOTE HPI: [...] most likely r/t pulmo (more content not included)...[facility] 12-24-2022 NoteProvider had extended 10 min discussion again with patient about smoking cessation, at this time she doesn't want to take any further medication or that she is ready to quit smoking at this time.[facility] Evaluation + Plan note Future Appointments Appointment Date:07/19/2023 10:00:00 AM Scheduled Provider: Location:[facility].ONCOLOGY Appointment Type:ONC Office Visit 30 (FT) [facility] Future App[facility]ments Appointment Date:01/16/2024 09:00:00 AM Scheduled Provider: Location:.ONCOLOGY Appointment Type:ONC Office Visit 30 (FT) Future Scheduled Tests Laboratory* CBC w/ Auto Diff 12/27/23 * Comprehensive Metabolic Panel 12/27/23 * D-Dimer 12/27/23 [facility] Future [facility]ments Appointment Date:01/16/2024 11:30:00 AM Scheduled Provider:aMriama Moore Location:[facility].ONCOLOGY Appointment Type:ONC Office Visit 30 (FT) [facility] Future Appointments Appointment Date:07/22/2025 10:00:00 AM Scheduled Provider:Mariama Moore Location:[facility].ONCOLOGY Appointment Type:ONC Office Visit 20 (FT) Future Scheduled Tests Laboratory* CBC w/ Auto Diff 07/23/24 * CBC w/ Auto Diff 01/20/25 * Comprehensive Metabolic Panel 07/23/24 * Comprehensive Metabolic Panel 01/20/25 * Ferritin 07/23/24 * Ferritin 01/20/25 * Iron Level 07/23/24 * Iron Level 01/20/25 * Iron Percent Saturation 07/23/24 * Iron Percent Saturation 01/20/25 * Transferrin 07/23/24 * Transferrin 01/20/25 [facility] Evaluation + Plan note Future Appointments Appointment Date:07/23/2024 10:40:00 AM Scheduled Provider:Mariama Moore Location:[facility].ONCOLOGY Appointment Type:ONC Office Visit 30 (FT) [facility] evalutqkih note* Diagnosis Other insomnia- Primary ROLANDO (obstructive sleep apnea) Obstructive sleep apnea (adult) (pediatric) COPD mixed type ([facility]) Tobacco dependence syndrome Tobacco use disorder BMI 37.0-37.9, adult Anxiety and depression ([facility]) Restless leg syndrome Restless legs syndrome (RLS) documented in this encounter [facility]* Diagnosis Anxiety and depression ([facility]/HCC)- Primary Type 2 diabetes mellitus without complication, without long-term current use of insulin ([facility]) Arthritis Unspecified arthropathy, site unspecified [facility] encounter [facility]* Diagnosis Type 2 diabetes mellitus without complication, without long-term current use of insulin ([facility])- Primary Atherosclerosis of aorta ([facility]) Atherosclerosis of aorta documented in this [facility]* Diagnosis Anxiety and depression ([facility]/HCC)- Primary Other insomnia Class 2 severe obesity due to excess calories with serious comorbidity and body mass index (BMI) of 37.0 to 37.9 in adult ([facility]) Type 2 diabetes mellitus without complication, without [...] 37.0-37.9, adult Chronic respiratory failure with hypoxia ([facility]) Type 2 diabetes mellitus with other specified complication ([facility]/HCC) Atherosclerosis of aorta (CMS/HCC) Atherosclerosis of aorta Mixed hyperlipidemia (CMS/HCC) Mixed hyperlipidemia Anxiety and depression (CMS/HCC) Restless leg syndrome Restless legs syndrome (RLS) Primary hypertension (CMS/[facility]) Unspecified essential hypertension Type 2 diabetes mellitus without complication, without long-term current use of insulin (CMS/HCC) Right upper quadrant abdominal pain COPD mixed type (CMS/HCC) Gastroesophageal reflux disease without esophagitis Esophageal reflux Anxiety and depression (CMS/HCC)- Primary Mixed hyperlipidemia (CMS/HCC) Mixed hyperlipidemia Restless leg syndrome Restless legs syndrome (RLS) Primary hypertension ([facility]) Unspecified essential hypertension Type 2 diabetes mellitus without complication, without long-term current use of insulin ([facility]/HCC) Other insomnia Osteopenia after menopause- Primary documented in this encounter [facility]* Diagnosis Anxiety and depression (CMS/HCC)- Primary Other insomnia Class 2 severe obesity due to excess calories with serious comorbidity and body mass index (BMI) of 37.0 to 37.9 in adult ([facility]) Type 2 diabetes mellitus without complication, without [...] to excess calories (CMS/HCC) Essential (primary) hypertension ([facility]/HCC) Unspecified essential hypertension Body mass index (BMI) 37.0-37.9, adult Chronic respiratory failure with hypoxia (CMS/HCC) Type 2 diabetes mellitus with other specified complication (CMS/HCC) Atherosclerosis of aorta (CMS/HCC) Atherosclerosis of aorta Mixed hyperlipidemia (CMS/HCC) Mixed hyperlipidemia Anxiety and depression (CMS/HCC) Restless leg syndrome Restless legs syndrome (RLS) Primary hypertension ([facility]) Unspecified essential hypertension Type 2 diabetes mellitus without complication, without long-term current use of insulin ([facility]) Right upper quadrant abdominal pain COPD mixed type (CMS/HCC) Gastroesophageal reflux disease without esophagitis Esophageal reflux Anxiety and depression (CMS/HCC)- Primary Mixed hyperlipidemia (CMS/HCC) Mixed hyperlipidemia Restless leg syndrome Restless legs syndrome (RLS) Primary hypertension ([facility]) Unspecified essential hypertension Type 2 diabetes mellitus without complication, without long-term current use of insulin ([facility]) Other insomnia Mixed hyperlipidemia (CMS/HCC) Mixed hyperlipidemia documented in this encounter [facility]* Diagnosis Anxiety and depression (CMS/HCC)- Primary Other insomnia Class 2 severe obesity due to excess calories with serious comorbidity and body mass index (BMI) of 37.0 to 37.9 in adult ([facility]) Type 2 diabetes mellitus without complication, without long-term current use of insulin ([facility]) ROLANDO (obstructive sleep apnea) Obstructive sleep apnea [...] Morbid (severe) obesity due to excess calories ([facility]) Essential (primary) hypertension ([facility]) Unspecified essential hypertension Body mass index (BMI) 37.0-37.9, adult Chronic respiratory failure with hypoxia ([facility] Type 2 diabetes mellitus with other specified complication ([facility] Atherosclerosis of aorta ([facility] Atherosclerosis of aorta Mixed hyperlipidemia ([facility] Mixed hyperlipidemia Anxiety and depression ([facility]) Restless leg syndrome Restless legs syndrome (RLS) Primary hypertension ([facility]) Unspecified essential hypertension Type 2 diabetes mellitus without complication, without long-term current use of insulin ([facility]) Right upper quadrant abdominal pain COPD mixed type ([facility] Gastroesophageal reflux disease without esophagitis Esophageal reflux Anxiety and depression ([facility])- Primary Mixed hyperlipidemia ([facility]) Mixed hyperlipidemia Restless leg syndrome Restless legs syndrome (RLS) Primary hypertension ([facility]) Unspecified essential hypertension Type 2 diabetes mellitus without complication, without long-term current use of insulin ([facility]) Other insomnia Gastroesophageal reflux disease without esophagitis Esophageal reflux documented in this encounter [facility]* Diagnosis Gastroesophageal reflux disease without esophagitis Esophageal reflux documented in this encounter [facility]* Diagnosis Anxiety and depression ([facility])- Primary Mixed hyperlipidemia ([facility]) Mixed hyperlipidemia Restless leg syndrome Restless legs syndrome (RLS) Primary hypertension ([facility]) Unspecified essential hypertension Type 2 diabetes mellitus without complication, without long-term current use of insulin ([facility]) Other insomnia documented in this encounter [facility]* Diagnosis Anxiety and depression ([facility])- Primary Other insomnia Class 2 severe obesity due to excess calories with serious comorbidity and body mass index (BMI) of 37.0 to 37.9 in adult ([facility]) Type 2 diabetes mellitus without complication, without long-term current use of insulin ([facility]) ROLANDO (obstructive sleep apnea) Obstructive sleep apnea (adult) (pediatric) Other insomnia- Primary ROLANDO (obstructive sleep apnea) Obstructive sleep apnea (adult) (pediatric) COPD mixed type ([facility]) Tobacco dependence syndrome Tobacco use disorder BMI 37.0-37.9, adult Anxiety and depression ([facility]) Restless leg syndrome Restless legs syndrome (RLS) Other insomnia- Primary Anxiety and depression ([facility]) Restless leg syndrome Restless legs syndrome (RLS) Acute non-recurrent maxillary sinusitis Right upper quadrant abdominal pain Other fatigue- Primary Morbid (severe) obesity due to excess calories ([facility]) Essential (primary) hypertension ([facility]) Unspecified essential hypertension Body mass index (BMI) 37.0-37.9, adult Chronic respiratory failure with hypoxia ([facility] Type 2 diabetes mellitus with other specified complication ([facility] Atherosclerosis of aorta ([facility] Atherosclerosis of aorta Mixed hyperlipidemia ([facility] Mixed hyperlipidemia Anxiety and depression ([facility]) Restless leg syndrome Restless legs syndrome (RLS) Primary hypertension ([facility]) Unspecified essential hypertension Type 2 diabetes mellitus without complication, without long-term current use of insulin ([facility]) Right upper quadrant abdominal pain COPD mixed type ([facility]) Gastroesophageal reflux disease without esophagitis Esophageal reflux Anxiety and depression ([facility])- Primary Mixed hyperlipidemia ([facility]) Mixed hyperlipidemia Restless leg syndrome Restless legs syndrome (RLS) Primary hypertension ([facility]) Unspecified essential hypertension Type 2 diabetes mellitus without complication, without long-term current use of insulin ([facility]) Other insomnia Rash- Primary Rash and other nonspecific skin eruption Essential (primary) hypertension ([facility]) Unspecified essential hypertension Edema of both lower extremities Class 2 severe obesity due to excess calories with serious comorbidity and body mass index (BMI) of 37.0 to 37.9 in adult ([facility]) ROLANDO (obstructive sleep apnea) Obstructive sleep apnea (adult) (pediatric) Type 2 diabetes mellitus without complication, without long-term current use of insulin ([facility]) Gastroenteritis Other and unspecified noninfectious gastroenteritis and colitis Iron deficiency anemia, unspecified iron deficiency anemia type documented in this encounter [facility]* Diagnosis Anxiety and depression ([facility])- Primary Other insomnia Class 2 severe obesity due to excess calories with serious comorbidity and body mass index (BMI) of 37.0 to 37.9 in adult ([facility]) Type 2 diabetes mellitus without complication, without long-term current use of insulin ([facility]) ROLANDO (obstructive sleep apnea) Obstructive sleep apnea (adult) (pediatric) Other insomnia- Primary ROLANDO (obstructive sleep apnea) Obstructive sleep apnea (adult) (pediatric) COPD mixed type ([facility]) Tobacco dependence syndrome Tobacco use disorder BMI [...] 37.0-37.9, adult Chronic respiratory failure with hypoxia (CMS/[facility]) Type 2 diabetes mellitus with other specified complication (CMS/[facility]) Atherosclerosis of aorta (CMS/HCC) Atherosclerosis of aorta Mixed hyperlipidemia (CMS/HCC) Mixed hyperlipidemia Anxiety and depression (CMS/[facility]) Restless leg syndrome Restless legs syndrome (RLS) Primary hypertension (CMS/[facility]) Unspecified essential hypertension Type 2 diabetes mellitus without complication, without long-term current use of insulin (CMS/[facility]) Right upper quadrant abdominal pain COPD mixed type (CMS/[facility]) Gastroesophageal reflux disease without esophagitis Esophageal reflux Anxiety and depression (CMS/HCC)- Primary Mixed hyperlipidemia (CMS/HCC) Mixed hyperlipidemia Restless leg syndrome Restless legs syndrome (RLS) Primary hypertension (CMS/[facility]) Unspecified essential hypertension Type 2 diabetes mellitus without complication, without long-term current use of insulin ([facility]) Other insomnia Rash- Primary Rash and other nonspecific skin eruption Essential (primary) hypertension (CMS/HCC) Unspecified essential hypertension Edema of both lower extremities Class 2 severe obesity due to excess calories with serious comorbidity and body mass index (BMI) of 37.0 to 37.9 in adult ([facility]) ROLANDO (obstructive sleep apnea) Obstructive sleep apnea (adult) (pediatric) Type 2 diabetes mellitus without complication, without long-term current use of insulin ([facility]) Gastroenteritis Other and unspecified noninfectious gastroenteritis and colitis Iron deficiency anemia, unspecified iron deficiency anemia type Weight loss, unintentional- Primary Loss of weight Chronic respiratory failure with hypoxia ([facility]) Morbid (severe) obesity due to excess calories (CMS/HCC) Essential (primary) hypertension ([facility]) Unspecified essential hypertension Class 2 severe obesity due to excess calories with serious comorbidity and body mass index (BMI) of 37.0 to 37.9 in adult ([facility]) Rash Rash and other nonspecific skin eruption Tobacco dependence syndrome Tobacco use disorder Anxiety and depression (CMS/HCC) Mixed hyperlipidemia (CMS/HCC) Mixed hyperlipidemia Iron deficiency anemia, unspecified iron deficiency anemia type Restless leg syndrome Restless legs syndrome (RLS) Primary hypertension (CMS/HCC) Unspecified essential hypertension Gastroesophageal reflux disease without esophagitis Esophageal reflux Type 2 diabetes mellitus without complication, without long-term current use of insulin (CMS/HCC) Edema of both lower extremities Nausea and vomiting, unspecified vomiting type Diarrhea, unspecified type documented [facility]* Diagnosis Anxiety and depression (CMS/HCC)- Primary Other insomnia Class 2 severe obesity due to excess calories with serious comorbidity and body mass index (BMI) of 37.0 to 37.9 in adult ([facility]) Type 2 diabetes mellitus without complication, without long-term current use of insulin (CMS/HCC) ROLANDO (obstructive sleep apnea) Obstructive sleep apnea (adult) (pediatric) Other insomnia- Primary ROLANDO (obstructive sleep apnea) Obstructive sleep apnea (adult) (pediatric) COPD mixed type ([facility]) Tobacco dependence syndrome Tobacco use disorder BMI 37.0-37.9, adult Anxiety and depression ([facility]/HCC) Restless leg syndrome Restless legs syndrome (RLS) Other insomnia- Primary Anxiety and depression ([facility]/HCC) Restless leg syndrome Restless legs syndrome (RLS) Acute non-recurrent maxillary sinusitis Right upper quadrant abdominal pain Other fatigue- Primary Morbid (severe) obesity due to excess calories ([facility]/HCC) Essential (primary) hypertension ([facility]) Unspecified essential hypertension Body mass index (BMI) 37.0-37.9, adult Chronic respiratory failure with hypoxia ([facility] Type 2 diabetes mellitus with other specified complication ([facility] Atherosclerosis of aorta ([facility] Atherosclerosis of aorta Mixed hyperlipidemia ([facility]/HCC) Mixed hyperlipidemia Anxiety and depression ([facility]/HCC) Restless leg syndrome Restless legs syndrome (RLS) Primary hypertension ([facility]) Unspecified essential hypertension Type 2 diabetes mellitus [...] complication, without long-term current use of insulin ([facility]) Other insomnia Rash- Primary Rash and other nonspecific skin eruption Essential (primary) hypertension ([facility]/HCC) Unspecified essential hypertension Edema of both lower extremities Class 2 severe obesity due to excess calories with serious comorbidity and body mass index (BMI) of 37.0 to 37.9 in adult ([facility]) ROLANDO (obstructive sleep apnea) Obstructive sleep apnea (adult) (pediatric) Type 2 diabetes mellitus without complication, without long-term current use of insulin ([facility]) Gastroenteritis Other and unspecified noninfectious gastroenteritis and colitis Iron deficiency anemia, unspecified iron deficiency anemia type Weight loss, unintentional- Primary Loss of weight Chronic respiratory failure with hypoxia ([facility]) Morbid (severe) obesity due to excess calories ([facility]) Essential (primary) hypertension ([facility]) Unspecified essential hypertension Class 2 severe obesity due to excess calories with serious comorbidity and body mass index (BMI) of 37.0 to 37.9 in adult ([facility]) Rash Rash and other nonspecific skin eruption Tobacco dependence syndrome Tobacco use disorder Anxiety and depression ([facility]) Mixed hyperlipidemia ([facility]) Mixed hyperlipidemia Iron deficiency anemia, unspecified iron deficiency anemia type Restless leg syndrome Restless legs syndrome (RLS) Primary hypertension ([facility]) Unspecified essential hypertension Gastroesophageal reflux disease without esophagitis Esophageal reflux Type 2 diabetes mellitus without complication, without long-term current use of insulin ([facility]) Edema of both lower extremities Nausea and vomiting, unspecified vomiting type Diarrhea, unspecified type Anxiety and depression ([facility]) Restless leg syndrome Restless legs syndrome (RLS) Other insomnia [facility] N[facility] No data available for this section [facility] No data available for this section [facility] No data available for this section [facility] Summary Purpose Family History No [...] and content) DATE CREATED AUTHOR 06/22/2021 [facility] [facility] DATE CREATED AUTHOR AUTHOR'S ORGANIZ ATION 12/15/2021 [facility] DATE CREATED AUTHOR AUTHOR'S ORGANIZ ATION 02/26/2023 [facility] DATE CREATED AUTHOR AUTHOR'S ORGANIZ ATION 09/10/2023 [facility] DATE CREATED AUTHOR AUTHOR'S ORGANIZ ATION 07/17/2024 [facility] DATE CREATED AUTHOR AUTHOR'S ORGANIZ ATION 07/23/2024 [facility] DATE CREATED AUTHOR AUTHOR'S ORGANIZ ATION 07/24/2024 [facility] DATE CREATED AUTHOR AUTHOR'S ORGANIZ ATION 12/04/2024 [facility] d[facility] Specialists [facility] Patient Care team informatio n (unrecognized section and content) 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 Converter Helper Relationship Specialty Start Date End Date Jose M Light MD [address] [place] [phone] PCP - General Family Medicine 10/18/23 Brea Jj NP [address] [place] [address] Nurse Practitioner Family Medicine 10/18/23 Butadiene Converter Helper Relationship Specialty Start Date End Date Jose M Light MD [address] [place] [address] PCP - General Family Medicine 10/18/23 Brea Jj NP [address] [place] [address] Nurse Practitioner Family [facility] 10/18/23 Butadiene Converter Helper Relationship Specialty Start Date End Date Jose M Light MD [address] [place] [address] PCP - General [facility] 10/18/23 Brea Jj NP [address] [place] [address] Nurse Practitioner Family [facility] 10/18/23 Butadiene Converter Helper Relationship Specialty Start Date End Date Jose M Light MD [address] [place] [address] PCP - General [facility] 10/18/23 Brea Jj NP [address] [place] [address] [facility] 07/31/24 Brea Jj NP [address] [place] [address] Nurse Practitioner [facility] 10/18/23 Butadiene Converter Helper Relationship Specialty Start Date End Date Jose M Light MD [address] [place] [address] PCP - General [facility] 10/18/23 Brea Jj NP [address] [place] [address] [facility] 07/31/24 Brea Jj NP [address] [place] [address] Nurse Practitioner Family Medicine 10/18/23 Butadiene Converter Helper Relationship Specialty Start Date End Date Jose M Light MD [address] [place] [address] PCP - General Family [facility] 10/18/23 Brea Jj NP [address] [place] [address] [facility] 07/31/24 Brea Jj NP [address] [place] [address] Nurse Practitioner Family Medicine 10/18/23 Butadiene Converter Helper Relationship Specialty Start Date End Date Jose M Light MD [address] [place] [address] PCP - General Family Medicine 10/18/23 Brea Jj NP [address] [place] [address] Nurse Practitioner Family Medicine 10/18/23 Butadiene Converter Helper Relationship Specialty Start Date End Date Jose M Light MD [address] [place] [address] PCP - General Family [facility] 10/18/23 Brea Jj NP [address] [place] [address] Nurse Practitioner Family Medicine 10/18/23 Butadiene Converter Helper Relationship Specialty Start Date End Date Jose M Light MD [address] [place] [address] PCP - General [facility] 10/18/23 Brea Jj NP [address] [place] [address] Nurse Practitioner Family [facility] 10/18/23 Butadiene Converter Helper Relationship Specialty Start Date End Date Jose M Light MD [address] [place] [address] PCP - [facility] 10/18/23 Brea Jj NP [address] [place] [address] [facility] 07/31/24 Brea Jj NP [address] [place] [address] Nurse Practitioner [facility] 10/18/23 Butadiene Converter Helper Relationship Specialty Start Date End Date Jose M Light MD [address] [place] [address] PCP - General [facility] 10/18/23 Brea Jj NP [address] [place] [address] [facility] 07/31/24 Brea Jj NP [address] [place] [address] Nurse Practitioner Family [facility] 10/18/23 Butadiene Converter Helper Relationship Specialty Start Date End Date Jose M Light MD [address] [place] [address] PCP - [facility] 10/18/23 Brea Jj NP [address] [place] [address] [facility] 07/31/24 Brea Jj NP [address] [place] [address] Nurse Practitioner [facility] 10/18/23 Butadiene Converter Helper Relationship Specialty Start Date End Date Jose M Light MD [address] [place] [address] PCP - [facility] 10/18/23 Brea Jj NP [address] [place] [address] [facility] 07/31/24 Brea Jj NP [address] [place] [address] Nurse Practitioner Family [facility] 10/18/23 Reason for Visit (unrecogniz ed section and content) Reason Comments Med Refill Reason Onset Date Comments Med Refill 09/11/2024 Reason Comments Rash Reason Comments Rash FOR RECORDS PERTAINING TO PATIENTS WHO ARE [...] BE BASED ON THE PRIMARY CLINICAL RECORDS. [facility]. provides no warranty or guarantee of the accuracy or completeness of information in this document.
[2024-12-04 08:25] LABS: Basophils Percent Auto 0.1 % (0.2-2.0); Eosinophils Absolute Auto 0.3 10^3/uL (0.0-0.7); Eosinophils Percent Auto 3.5 % (0.9-7.0); Hematocrit 42.2 % (36.0-48.0); Immature Granulocytes Abs Auto 0.03 10^3/uL (0.00-0.03); Immature Granulocytes Pct Auto 0.3 % (0.0-0.5); Lymphocytes Percent Auto 10.7 % (20.5-60.0); Mean Corpuscular HGB Conc 33.2 g/dL (29.9-35.2); Mean Corpuscular Hemoglobin 29.9 pg (26.7-34.0); Mean Platelet Volume 12.4 fL (9.5-13.5); Monocytes Absolute Auto 0.6 10^3/uL (0.3-0.8); Monocytes Percent Auto 6.9 % (1.7-12.0); Neutrophils Absolute Auto 6.9 10^3/uL (1.4-6.5); Neutrophils Percent Auto 78.5 % (43.0-75.0); Platelet Count 179 10^3/uL (150-450); Red Blood Count 4.69 10^6/uL (4.20-5.40); Red Cell Distribution Width 14.6 % (11.0-15.0); White Blood Count 8.9 10^3/uL (4.0-11.0)
[2024-12-04 08:36] LABS: Bilirubin Urine NEGATIVE (NEGATIVE); Blood Urine NEGATIVE (NEGATIVE); Clarity Urine CLEAR (CLEAR); Color Urine YELLOW (YELLOW); Glucose Urine UA NEGATIVE (NEGATIVE); Ketones Urine NEGATIVE (NEGATIVE); Leukocyte Esterase Urine SMALL (NEGATIVE); Nitrite Urine NEGATIVE (NEGATIVE); Protein Urine NEGATIVE (NEG/TRACE); pH Urine 5.5 (5.0-9.0)
[2024-12-04 08:43] LABS: Urine Microscopic Indicated YES
[2024-12-04 08:44] LABS: RBC Urine NONE SEEN #/HPF (0-2); WBC Urine 0-2 #/HPF (NONE SEEN)
[2024-12-04 08:45] LABS: Bacteria Urine NONE SEEN #/HPF (NONE SEEN); Mucus Urine TRACE (NONE SEEN); Squamous Epithelial Cell Urine FEW #/LPF (NONE/RARE)
[2024-12-04 08:46] LABS: Urine Culture Indicated ALREADY ORDERED
[2024-12-04 08:51] LABS: Alanine Aminotransferase 17 U/L (14-59); Albumin Globulin Ratio 0.7; Albumin Level 3.2 g/dL (3.4-5.0); Alkaline Phosphatase 87 U/L (46-116); Amylase 48 U/L (25-115); Anion Gap 11.4; Aspartate Amino Transferase 18 U/L (15-37); BUN Creatinine Ratio 20.7; Bilirubin Total 0.5 mg/dL (0.2-1.0); Calcium 9.6 mg/dL (8.5-10.1); Carbon Dioxide 31.4 mmol/L (21.0-32.0); Chloride 100 mmol/L (98-107); Estimated GFR (African America 58 (>=60 mL/min/1.73m^2); Estimated GFR (Non-African Ame 48 (>=60 mL/min/1.73m^2); Free T3 2.56 pg/mL (2.18-3.98); Globulin 4.3 g/dL; Glucose 133 mg/dL (74-106); Potassium 3.8 mmol/L (3.5-5.1); Sodium 139 mmol/L (136-145); Thyroid Stimulating Hormone 0.565 uIU/mL (0.358-3.740); Total Protein 7.5 g/dL (6.4-8.2)
[2024-12-04 09:02] LABS: Erythrocyte Sedimentation Rate 61 mm/hr (<=30)
[2024-12-04 09:47] LABS: Free T4 1.36 ng/dL (0.76-1.46)
== END 2024-12-04 07:54 | disposition home or self-care (01) ==
LOC: LAB 07:56
PROVIDERS: PCP Nurse Practitioner; Visit Provider Nurse Practitioner
DX: R11.2 Nausea with vomiting, unspecified (principal); R19.7 Diarrhea, unspecified; R63.4 Abnormal weight loss
CPT/HCPCS: 36415; 80053; 81001; 82150; 83690; 84439; 84443; 84481; 85025; 85652; 87086

== ENCOUNTER 2024-12-21 13:59 | Outpatient (REF) | payer OTHER, SELFPAY ==
[2024-12-21 18:27] LABS: Internal Control Within Normal Limits; Occult Blood Positive
[2024-12-22 17:59] LABS: C. Difficile PCR NEGATIVE
[2024-12-24 19:10] LABS: Ova + Parasite Exam Final report (.)
== END 2024-12-21 14:00 | disposition home or self-care (01) ==
LOC: LAB 13:59
PROVIDERS: PCP Nurse Practitioner; Visit Provider Nurse Practitioner
DX: R11.2 Nausea with vomiting, unspecified (principal); R19.7 Diarrhea, unspecified; R63.4 Abnormal weight loss
CPT/HCPCS: 87045; 87046; 87177; 87209; 87427; 87493; G0328

== ENCOUNTER 2025-02-15 09:19 | Outpatient (OUT) | payer OTHER, SELFPAY ==
--- NOTE | 2025-02-18 09:48 | W.PM.PROCNOT ---
Procedure: 6-Minute Walk (6MW) Date of 6MW: 02/15/2025 Indication: Chronic respiratory failure with hypoxia MMRC: 3 Resting data: -HR: 91 -BP: 123/69 -SpO2: 93% -FiO2: Room air -Tre: 0 Protocol: -6MW was initiated according to standard protocol. After ambulating for 1 minute on room air, SpO2 dropped to 88% with Tre 0.5. Patient was placed on her baseline 3L/min O2 with remainder of study performed on 3L/min. Total walk duration was 6 minutes with lowest SpO2 @ 92 on 3L/min. Highest Tre was 4. Recovery data: -HR: 105 -BP: 148/76 -SpO2: 97% -FiO2: 3L/min O2 -Tre: 1 Number of stops: Total walk distance: 244m, which is 83% of predicted walk distance. 1 stop due to placing patient on O2. Impressions: -Ambulatory desaturations requiring 3L/min O2 to recover. Recommendations: -3L/min with ambulation/activity. Clinical correlation required.
== END 2025-02-15 15:23 | disposition home or self-care (01) ==
LOC: CARD 02-19 11:20
PROVIDERS: PCP Nurse Practitioner; Visit Provider Internal Medicine
DX: J96.11 Chronic respiratory failure with hypoxia (principal)
CPT/HCPCS: 94618

== ENCOUNTER 2025-02-21 19:14 | Emergency (ER) | payer OTHER, SELFPAY ==
[2025-02-21 19:27] VITALS: BP 160/71; PULSE 105; TEMP 36.7; O2SAT 93; BMI 36.6
--- NOTE | 2025-02-21 19:33 | ED.URI1 ---
HPI - URI/Sore Throat General Chief Complaint: Upper Respiratory Infection Stated Complaint: Upper Respiratory Infection Time Seen by Provider: 02/21/25 19:32 History of Present Illness HPI Narrative: 59 year old female presents to the ED for cough, SOB. Onset was 3 days ago. She has hx COPD. She wears [place] oxygen at 3L. She was placed on prednisone 3 days ago. Reports no improvement. Denies fever, chills, edema, N/V/D. Her last albuterol treatment was around 1600 today. Related Data Home Medications ?Medication ?Instructions ?Recorded ?Confirmed albuterol sulfate 90 mcg/actuation inhalation 03/31/24 aerosol inhaler amitriptyline 50 mg tablet mg 03/31/24 apixaban 5 mg tablet (Eliquis) mg 03/31/24 aspirin 81 mg tablet,delayed mg 03/31/24 release atorvastatin 40 mg tablet mg 03/31/24 buspirone 15 mg tablet mg 03/31/24 calcium 600 mg (as tab 03/31/24 carbonate)-vitamin D3 5 mcg (200 unit) tablet celecoxib 200 mg capsule mg 03/31/24 clonazepam 0.5 mg tablet mg 03/31/24 duloxetine 60 mg capsule,delayed mg PO 03/31/24 release ferrous sulfate 325 mg (65 mg mg 03/31/24 iron) tablet (FeroSul) fluticasone propionate 110 inhalation 03/31/24 mcg/actuation HFA aerosol inhaler furosemide 20 mg tablet mg 03/31/24 gabapentin 300 mg capsule mg 03/31/24 glycopyrrolate 9 mcg-formoterol inhalation 03/31/24 4.8 mcg HFA aerosol inhaler (Bevespi Aerosphere) ipratropium 0.5 mg-albuterol 3 mg ml inhalation 03/31/24 (2.5 mg base)/3 mL nebulization soln lamotrigine 25 mg tablet mg 03/31/24 lisinopril 20 tab 03/31/24 mg-hydrochlorothiazide 25 mg tablet multivitamin tab 03/31/24 pioglitazone 15 mg tablet mg 03/31/24 potassium chloride 10 mEq meq PO 03/31/24 tablet,extended release pramipexole 0.5 mg tablet mg 03/31/24 theophylline 300 mg mg PO 03/31/24 tablet,extended release,12 hr Previous Rx's ?Medication ?Instructions ?Recorded hydrocodone 5 mg-acetaminophen 325 1 tab PO Q6H PRN pain 5 days #20 03/31/24 mg tablet tabs ondansetron 4 mg disintegrating 4 mg PO Q6H PRN nausea and 03/31/24 tablet vomiting #20 tabs dicyclomine 20 mg tablet 20 mg PO TID PRN abdominal pain #7 10/27/24 tabs ondansetron 4 mg disintegrating 4 mg PO Q4H PRN nausea and 10/27/24 tablet vomiting 3 days #6 tabs benzonatate 100 mg capsule 100 mg PO TID PRN cough #20 caps 02/21/25 guaifenesin 600 mg tablet, 600 mg PO BID PRN congestion #14 02/21/25 extended release 12 hr (Mucinex) tabs hydrocodone 10 mg-chlorpheniramine 5 ml PO .nightly PRN cough 4 days 02/21/25 8 mg/5 mL oral susp extend.rel 12hr #20 mL Allergies Allergy/AdvReac Type Severity Reaction Status Date / Time No Known Drug Allergies Allergy Verified 02/21/25 19:27 Review of Systems ROS Constitutional Denies: fever or chills Ears, nose, mouth, and throat Denies: throat pain or neck pain Cardiovascular Denies: chest pain, edema, swelling of feet/ankles or lightheadedness Respiratory Reports: shortness of breath and cough Gastrointestinal Denies: abdominal pain, nausea, vomiting or diarrhea Musculoskeletal Denies: back pain or neck pain Neurological Denies: headache or dizziness PFSH PFSH Social History Smoking status: Former smoker Little interest or pleasure in doing things: not at all Feeling down, depressed, or hopeless: not at all Exam Constitutional Vital Signs, click to edit/add: Last Vital Signs Temp 98.3 F 02/21/25 21:01 Pulse 86 02/21/25 21:01 Resp 188 H 02/21/25 21:01 BP 144/78 H 02/21/25 21:01 Pulse Ox 97 02/21/25 21:01 O2 Del Method Nasal Cannula 02/21/25 21:01 O2 Flow Rate 3 02/21/25 21:01 Common normals: oriented x3 General appearance: cooperative HENTX Common normals: external ears normal and moist oral mucous membranes Mouth: oral and palatal mucosa normal and lip normal Eye Common normals: conjunctivae normal and no scleral icterus Neck & C-Spine Common normals: supple and no meningeal signs Chest Chest: symmetrical chest wall rise Respiratory Common normals: normal respiratory effort Effort & inspection: able to speak in complete sentences, symmetric chest movement and labored; no grunting and no stridor Auscultation: diminished lung sounds Cardio Common normals: regular rate and regular rhythm Neuro Common normals: oriented x3 and moves all extremities Sensorium/orientation: awake and alert Speech: speech normal Course Vital Signs Vital signs: Vital Signs Temperature 98.1 F 02/21/25 19:27 Pulse Rate 105 H 02/21/25 19:27 Respiratory Rate 24 H 02/21/25 19:27 Blood Pressure 160/71 H 02/21/25 19:27 Pulse Oximetry 93 L 02/21/25 19:27 Oxygen Delivery Method Nasal Cannula 02/21/25 19:27 Temperature 98.3 F 02/21/25 21:01 Pulse Rate 86 02/21/25 21:01 Respiratory Rate 188 H 02/21/25 21:01 Blood Pressure 144/78 H 02/21/25 21:01 Pulse Oximetry 97 02/21/25 21:01 Oxygen Delivery Method Nasal Cannula 02/21/25 21:01 Oxygen Delivery Flow Rate 3 02/21/25 21:01 MDM - URI/Sore Throat MDM Narrative Medical decision making narrative: Covid-19 and influenza were negative. WBC count was unremarkable. Chest x-ray was negative for acute findings. She was given IV solumedrol, albuterol, and Tessalon perles here with improvement. She has a prednisone taper and nebulizer at home. She is not requiring increased oxygen at this time. Findings were discussed. Follow up with pcp and pulmonology for a recheck, further evaluation and treatment. OARRS was reviewed. Prescriptions were provided for mucinex, tessalon perles, and tussionex (nightly prn). Differential Diagnosis Differential diagnosis: Likely upper respiratory infection, viral infection, bronchitis and other (pneumonia, COPD exacerbation) Medical Records Attestation: I reviewed the patient's medical records. Lab Data Attestation: I reviewed the patient's lab results. Labs: Lab Results 02/21/25 02/21/25 Range/Units 19:45 19:50 WBC 7.1 (4.0-11.0) 10^3/uL RBC 4.17 L (4.20-5.40) 10^6/uL Hgb 12.4 (12.0-16.0) g/dL Hct 38.7 (36.0-48.0) % MCV 92.8 (81.0-99.0) fL MCH 29.7 (26.7-34.0) pg MCHC 32.0 (29.9-35.2) g/dL RDW 14.6 (11.0-15.0) % Plt Count 195 (150-450) 10^3/uL MPV 12.0 (9.5-13.5) fL Neut % (Auto) 84.4 H (43.0-75.0) % Lymph % (Auto) 9.5 L (20.5-60.0) % [place] % (Auto) 5.2 (1.7-12.0) % Eos % (Auto) 0.0 L (0.9-7.0) % Baso % (Auto) 0.1 L (0.2-2.0) % Neut # (Auto) 6.0 (1.4-6.5) 10^3/uL Lymph # (Auto) 0.7 L (1.2-3.8) 10^3/uL [place] # (Auto) 0.4 (0.3-0.8) 10^3/uL Eos # (Auto) 0.0 (0.0-0.7) 10^3/uL Baso # (Auto) 0.0 (0.0-0.1) 10^3/uL Abs Immat Gran (auto) 0.06 H (0.00-0.03) 10^3/uL Imm/Tot Granulo (auto) 0.8 H (0.0-0.5) % Sodium 138 (136-145) mmol/L Potassium 4.3 (3.5-5.1) mmol/L Chloride 101 (98-107) mmol/L Carbon Dioxide 34.9 H (21.0-32.0) mmol/L Anion Gap 6.4 BUN 21.0 H (7.0-18.0) mg/dL Creatinine 1.10 H (0.55-1.02) mg/dL Est GFR ( Amer) >60 (>=60 mL/min/1.73m^2) Est GFR (Non-Af Amer) 51 L (>=60 mL/min/1.73m^2) BUN/Creatinine Ratio 19.1 Glucose 226 H (74-106) mg/dL Calcium 9.2 (8.5-10.1) mg/dL Influenza Type A Ag Negative Influenza Type B Ag Negative SARS-CoV-2 Ag (CV2AG) Negative (NEGATIVE) Imaging Data Chest x-ray: Attestation: I have reviewed the pertinent imaging results. Radiologist's impression: 1. Slight prominence of the heart size. 2. Mildly hypoinflated lungs. 3. No lobar consolidation or edema. 4. No pleural effusion of pneumothorax. Discharge Plan Discharge Chief Complaint: Upper Respiratory Infection Clinical Impression: COPD exacerbation Patient Disposition: Home, Self-Care Condition: Good Mode of Transportation: Private Vehicle Prescriptions / Home Meds: New guaifenesin [Mucinex] 600 mg tablet extended release 12hr 600 mg PO BID PRN (Reason: congestion) Qty: 14 0RF benzonatate 100 mg capsule 100 mg PO TID PRN (Reason: cough) Qty: 20 0RF hydrocodone-chlorpheniramine 10-8 mg/5 mL suspension,extended rel 12 hr 5 ml PO .nightly PRN (Reason: cough) 4 Days Qty: 20 0RF No Action dicyclomine 20 mg tablet 20 mg PO TID PRN (Reason: abdominal pain) Qty: 7 0RF ondansetron 4 mg tablet,disintegrating 4 mg PO Q4H PRN (Reason: nausea and vomiting) 3 Days Qty: 6 0RF aspirin 81 mg tablet,delayed release (DR/EC) amitriptyline 50 mg tablet albuterol sulfate 90 mcg/actuation HFA aerosol inhaler INHALATION Eliquis 5 mg tablet multivitamin Tablet celecoxib 200 mg capsule pioglitazone 15 mg tablet atorvastatin 40 mg tablet ipratropium-albuterol 0.5 mg-3 mg(2.5 mg base)/3 mL solution for nebulization INHALATION clonazepam 0.5 mg tablet potassium chloride 10 mEq tablet extended release PO calcium carbonate-vitamin D3 600 mg-5 mcg (200 unit) tablet theophylline 300 mg tablet extended release 12 hr PO lamotrigine 25 mg tablet pramipexole 0.5 mg tablet ferrous sulfate [FeroSul] 325 mg (65 mg iron) tablet gabapentin 300 mg capsule lisinopril-hydrochlorothiazide 20-25 mg tablet furosemide 20 mg tablet fluticasone propionate 110 mcg/actuation HFA aerosol inhaler INHALATION buspirone 15 mg tablet duloxetine 60 mg capsule,delayed release(DR/EC) PO Bevespi Aerosphere 9-4.8 mcg HFA aerosol inhaler INHALATION hydrocodone-acetaminophen 5-325 mg tablet 1 tab PO Q6H PRN (Reason: pain) 5 Days Qty: 20 0RF ondansetron 4 mg tablet,disintegrating 4 mg PO Q6H PRN (Reason: nausea and vomiting) Qty: 20 0RF Print Language: Lithuanian Instructions: COPD (Chronic Obstructive Pulmonary Disease) (ED) Additional Instructions: Return to the ER for worsening symptoms. Continue the prednisone as directed. Referrals: Brea Jj NP [Primary Care Provider] - 1 week Calvin Russo DO [Physician] - 1 week
[2025-02-21 19:40] VITALS: O2SAT 94
[2025-02-21] MEDS: METHYLPREDNISOLONE SOD SUCC PF 125 MG/2 ML VIAL IVP (20:01)
[2025-02-21 20:02] LABS: Basophils Percent Auto 0.1 % (0.2-2.0); Hematocrit 38.7 % (36.0-48.0); Hemoglobin 12.4 g/dL (12.0-16.0); Immature Granulocytes Abs Auto 0.06 10^3/uL (0.00-0.03); Immature Granulocytes Pct Auto 0.8 % (0.0-0.5); Lymphocytes Absolute Auto 0.7 10^3/uL (1.2-3.8); Lymphocytes Percent Auto 9.5 % (20.5-60.0); Mean Corpuscular Hemoglobin 29.7 pg (26.7-34.0); Mean Corpuscular Volume 92.8 fL (81.0-99.0); Monocytes Absolute Auto 0.4 10^3/uL (0.3-0.8); Monocytes Percent Auto 5.2 % (1.7-12.0); Neutrophils Percent Auto 84.4 % (43.0-75.0); Platelet Count 195 10^3/uL (150-450); Red Blood Count 4.17 10^6/uL (4.20-5.40); Red Cell Distribution Width 14.6 % (11.0-15.0); White Blood Count 7.1 10^3/uL (4.0-11.0)
[2025-02-21 20:13] VITALS: PULSE 87; O2SAT 95
[2025-02-21 20:13] LABS: Anion Gap 6.4; BUN Creatinine Ratio 19.1; Calcium 9.2 mg/dL (8.5-10.1); Carbon Dioxide 34.9 mmol/L (21.0-32.0); Chloride 101 mmol/L (98-107); Estimated GFR (African America >60 (>=60 mL/min/1.73m^2); Estimated GFR (Non-African Ame 51 (>=60 mL/min/1.73m^2); Glucose 226 mg/dL (74-106); Potassium 4.3 mmol/L (3.5-5.1); Sodium 138 mmol/L (136-145)
[2025-02-21] MEDS: ALBUTEROL SULFATE 2.5 MG/3 ML VIAL NEB IH (20:13)
[2025-02-21 20:14] LABS: Influenza Virus A Antigen Negative; Influenza Virus B Antigen Negative; Internal Control Within Normal Limits; SARS-CoV-2 Ag NEGATIVE (NEGATIVE)
[2025-02-21 21:01] VITALS: BP 144/78; PULSE 86; TEMP 36.8; O2SAT 97
[2025-02-21] MEDS: BENZONATATE 100 MG CAPSULE 200 MG PO (21:59)
[2025-02-21 22:22] VITALS: PULSE 83; O2SAT 96
== END 2025-02-21 22:24 | disposition home or self-care (01) ==
PROVIDERS: Nurse Practitioner Family; Emergency Provider Internal Medicine; PCP Nurse Practitioner
DX: J44.1 Chronic obstructive pulmonary disease with (acute) exacerbation (principal); R06.02 Shortness of breath; Z99.81 Dependence on supplemental oxygen; Z87.891 Personal history of nicotine dependence
CPT/HCPCS: 36415; 71045; 80048; 85025; 87804; 87811; 94640; 96374; 99285; J2919

== ENCOUNTER 2025-04-17 09:45 | Outpatient (OUT) | payer OTHER, SELFPAY ==
--- OUTSIDE RECORDS SUMMARY | 2023-11-07 05:00 | XMS_ITS ---
Author Organization [facility] Address [address] [place] [address] Care Team Providers Care Train Operations Manager Name Role Phone Papito Berkowitz Unavailable [phone] REASON FOR VISIT RT knee pain Encounters Encounter Location Date Provider Diagnosis [facility] [address] [place] [address] [place] [address] 11/07/2023 Papito Berkowitz Plan Of Treatment No Information Progress Notes * ALIYA CONDONDOB: 5 (59 yo F)Acc No.[id number]:11/07/2023 Patient: LITO TORRESELA Provider: Torsten Berkowitz MD :1965 A ge:58 Y S ex:Female Date:11/07/2023 Address:[address] [place] [address] [address] [place]OR[place]ZO, [id number] Subjective: * Chief Complaints: * 1 . RT knee pain. * Medical History: Objective: * Vitals: Assessment: Plan: * Treatment: Forms: * Images: * Electronic signature of Carl Berkowitz MD on 04/17/2025 at 09:47 AM EDT Sign off status: Pending * Provider: Torsten Berkowitz MD Date: 0 11/07/2023 Generated for Joe landers/Angelica/Ofeliaitting on: 04/17/2025 09:47 AM EDT
--- OUTSIDE RECORDS SUMMARY | 2025-01-21 07:48 | XMS_ITS ---
Author Organization [facility] in [place] Address [address] [place] [address] Care Team Providers Care Library Media Technician Name Role Phone Brea Jj CNP Primary Care Provider Unavail Calvin Pettit Unavailable [phone] REASON FOR VISIT EGD/Colonoscopy Procedure Encounters Encounter Location Date Provider Diagnosis Pulmonary Medicine [place] [address] [place] [address] 01/21/2025 Calvin Russo Plan Of Treatment Next Appt Details Provider Name:Calvin Russo, 07/31/2025 08:30:00 AM, [address] [place], [address], Progress Notes * Sis MOOREDOB: [birth year] (59 yo F)Acc No.[id number]:01/21/2025 Patient: Sis TORRES :1965 A ge:59 Y S ex:Female Address:[address] [place] [address] [place], [address] * true * Date: Generated for Printi ng/Faxing/eTransmitting on: 0 04/17/2025 09:48 AM EDT
--- OUTSIDE RECORDS SUMMARY | 2025-01-30 04:30 | XMS_ITS ---
Author Organization [facility] in [place] Address [address] [place] [address] Care Team Providers Care Director Of Intercol[employer]iate [employer] Name Role Phone Brea Jj CNP Primary Care Provider Unavail able DonaldCalvin Unavailable [phone] Allergies No Known Allergies REASON FOR VISIT 6MO-COPD Medications Medication SIG (Take, Route, Frequency, Duration) Notes Start Date End Date Status Xanax 0.25 MG 1 tablet Orally Twic e a day Active Potassium Chloride ER 10 MEQ 1 tablet wi th food Orally Twice a day Active Pramipexole Dihydrochloride 0.5 MG 1 tablet Orally Once a day Active Theophylline ER 300 mg 1 + 1/2 tablets o ral BID for 90 days Active LaMICtal 25 MG 1 tablet Orally Active Lasix 20 MG 1 tablet Orally Once a day Active Lisinopril-hydroCHLOROthiazi d e 20-25 MG 1 tablet Orally Once a day Active Pioglitazone HCl 15 MG 1 tablet Orally O nce a day Active Fluticasone Propionate HFA 110 MCG/ACT 2 puffs Inhalation BID for 90 days Rinse after use 10/09/2024 Active Gabapentin 300 MG 1 capsule Orally Onc e a day Active Ipratropium-Albuterol 0.5-2. 5 (3) MG/3ML 3mL Inhalation QID for 30 days Active DULoxetine HCl 60 MG 1 capsule Orally On ce a day Active FeroSul 325 (65 Fe) MG TAKE ONE TABLET B Y MOUTH ONCE DAILY Oral for 28 Days Active Fluticasone Propionate 50 MCG/ACT 2 sprays in each nostril Nasally Once a day for 30 days Active Celecoxib 200 MG TAKE ONE CAPSULE BY MOUTH ONCE DAILY IN THE MORNING Oral for 30 Days Active Albuterol Sulfate HFA 108 (9 0 Base) MCG/ACT 2 puffs as needed for SOB Inhalation every 4 hrs for 90 days Active Doxepin HCl 10 MG 1 capsule at bedtime Orally Once a day Active Bevespi Aerosphere 9-4.8 MCG/ACT 2 puffs Inhalation BID for 90 days Active clonazePAM 0.5 MG TAKE 1 TABLET (0.5 M G) BY MOUTH AT BEDTIME Oral for 30 Days Active Aspirin 81 81 MG 1 tablet Orally Once a day Active Atorvastatin Calcium 40 MG 1 tablet Oral ly Once a day Active Carafate 1 GM 1 tablet on an empty stomach Orally Twice a day Active busPIRone HCl 15 MG 1 tablet Orally Twic e a day Active Social History Tobacco Use: Social History Observation Description Date Details (start date - stop date) Former Smoker NA - NA Tobacco Control (Standard) Question Answer Notes Tobacco use: Former smoker How long has it been since you last smoked? Less than 1 month Additional Findings: Tobacco non-user Ex-light c igarette smoker (1-9/day) Vital Signs Temperature 96.8 degrees Fahrenheit 01/31/20 25 Blood pressure systolic 145 mm Hg 01/31/20 25 Blood pressure diastolic 73 mm Hg 025 Heart Rate 93 /min 01/30/2025 Respiratory Rate 20 /min 01/30/2025 Height 69 in 01/30/2025 Weight 258.4 lbs 01/30/2025 BMI 38.15 kg/m2 01/30/2025 Oximetry 94 % 01/30/2025 Procedures Procedure Date Ordered Date Performed Result Body Sit e Six minute walk 01/30/2025 02/15/2025 N/A Encounters Encounter Location Date Provider Diagnosis [facility] [place] [address] [place] [address] 01/30/2025 Calvin Russo Chronic respiratory failure with hypoxia J96.11 ; Paraseptal emphysema J43.8 ; Cigarette nicotine dependence with nicotine-induced disorder F17.219 ; Pulmonary embolism I26.99 ; Obstructive sleep apnea G47.33 ; Diabetes mellitus type 2, controlled E11.9 ; nursing home (current) use of inhaled steroids Z79.51 and Obesity, unspecified E66.9 Assessments Encounter Date Diagnosis (ICD Code) Assessment Notes Treatment Notes Treatment Clinical Notes Section Notes 01/30/2025 Chronic respiratory failure with hypoxia (ICD-10 - J96.11) Cnok-ta-ragv encounter performed with the patient to document continued need for supplemental oxygen (O2). -Flow & directions: Currently on room air at rest and 2L/min O2 with activity.-Patient voices adherence to recommended usage: Yes-Symptom control on O2: Improved shortness of breath-Counseled patient not begin, restart, or continue smoking, around the O2 due to risk of fire which could result in damage to the O2 tanks & lines, smoke inhalation and flame damage to the airway, significant garcia, potential , property damage, and potential harm & to bystanders. Additionally, counseled it is not sheffield to begin, restart, or continue smoking given the underlying pulmonary disease that led to the point of requiring O2.-Recommendation s: She continues to have benefit from supplemental O2. In anticipation for renewal of O2, ordering 6-minute walk to requalify the patient. 01/30/2025 Paraseptal emphysema (ICD-10 - J43.8) It has now been over 18 months since her last exacerbation of COPD. She continues to voice benefit from the Flovent + Bevespi combination without any adverse effects associated with them. Albuterol HFA use is rare, though she has had to use her DuoNeb nebulizer with the springtime weather changes. She is on theophylline to control her respiratory symptoms. There is concern from GI Dr. Eddy regarding adverse effects of theophylline contributing to the patient's diarrhea & N/V. She is on this medication because at the time of prescribing, she was already on triple inhaled therapy, and the only alternative left was daily systemic steroids -the goal is to avoid this if possible given the multiple long-term adverse effects, as well as her underlying history of DM2. I have periodically monitored her theophylline levels which have remained within the therapeutic range of 10-20. The patient has been counseled that smoking cessation will increase the theophylline level, increasing the risk of adverse effects (as smoking increases the hepatic metabolism of theophylline). However, regardless of the serum theophylline level, patients can still experience side effects such as N/V & diarrhea. As her breathing has been relatively stable over the last 18 months, I suggested that the patient decrease her theophylline dose from 450mg (1+1/2 300mg tab) to 300mg BID - we will need to see if this decreases her incidence of N/V & diarrhea without causing increased dyspnea. If her respiratory symptoms worsen but GI symptoms improved, this suggests theophylline is a major culprit. Over the last 8 months, 2 new medications have been FDA approved for COPD; Dupixent and Ohtuvayre. She is not a Dupixent candidate as she does not have eosinophils @ or >300 to qualify. Ohtuvayre is an option -its mechanism of action is somewhat similar to theophylline as a PDE 3/PDE 4 inhibitor. She would need to stop theophylline approximately 5 days for washout before starting Ohtuvayre. Difficulty is that Ohtuvayre may not be covered by [place] [employer]. Patient was instructed to contact me if she is not tolerating the change of theophylline dose. Otherwise, she will return in 6 months for longitudinal evaluation. Ngxd-my-eawu encounter performed with the patient to document continued need for a nebulizer with nebulized medications. -Current nebulized medications: DuoNeb -Symptom control: Assists in control when Flovent + Bevespi are not enough, especially during weather changes -Reported side or adverse effects: None -Recommendations: Continue DuoNeb with nebulizer. Refill nebulizer and nebulizer supplies as necessary. 01/30/2025 Cigarette nicotine dependence with nicotine-induce d disorder (ICD-10 - F17.219) Patient quit smoking 2 days ago. This is her third attempt. Counseled patient to not be upset over the relapse; smoking/nicotine is extremely addictive and it can take multiple attempts for someone to quit smoking. I offered her encouragement on her smoking cessation journey. LDCT 05/29/2024 RADS-1. 1 year LDCT is due end of April 2025. 01/30/2025 Pulmonary embolism (ICD-10 - I26.99) Unprovoked pulmonary emboli identified on CTA 06/16/2023 - Hypercoaguable w/up was negative. F/U with hematology. 01/30/2025 Obstructive sleep apnea (ICD-10 - G47.33) Managed by Dr. Khan. 01/30/2025 Diabetes mellitus type 2, controlled (ICD-10 - E11.9) Steroids prescribed for this patient's underlying pulmonary disease can adversely affect blood glucose levels, inducing hyperglycemia and worsening underlying diabetes. The patient is encouraged to follow up with the primary care provider to create a plan to manage diabetes in this situation. 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 01/30/2025 Obesity, unspecified (ICD-10 - E66.9) Patient's weight is inducing a restrictive pulmonary physiology. Weight loss indicated: Decrease calories, increase activity. 01/30/2025 Other Plan Of Treatment Medication Medication Name Sig Start Date Stop Date Notes Theophylline ER 300 mg 1 + 1/2 tablets o ral BID for 90 days Fluticasone Propionate HFA 1 10 MCG/ACT 2 puffs Inhalation BID for 90 days 10/09/2024 Albuterol Sulfate HFA 108 (9 0 Base) MCG/ACT 2 puffs as needed for SOB Inhalation every 4 hrs for 90 days Bevespi Aerosphere 9-4.8 MCG/ACT 2 puffs Inhalation BID for 90 days Treatment Notes Assessment Notes Chronic respiratory failure with hypoxia Idne-ln-pkez encounter performed with the patient to document continued need for supplemental oxygen (O2). -Flow & directions: Currently on room air at rest and 2L/min O2 with activity.-Patient voices adherence to recommended usage: Yes-Symptom control on O2: Improved shortness of breath-Counseled patient not begin, restart, or continue smoking, around the O2 due to risk of fire which could result in damage to the O2 tanks & lines, smoke inhalation and flame damage to the airway, significant garcia, potential , property damage, and potential harm & to bystanders. Additionally, counseled it is not sheffield to begin, restart, or continue smoking given the underlying pulmonary disease that led to the point of requiring O2.-Recommendations: She continues to have benefit from supplemental O2. In anticipation for renewal of O2, ordering 6-minute walk to requalify the patient. Paraseptal emphysema It has now been over 18 months since her last exacerbation of COPD. She continues to voice benefit from the Flovent + Bevespi combination without any adverse effects associated with them. Albuterol HFA use is rare, though she has had to use her DuoNeb nebulizer with the springtime weather changes. She is on theophylline to control her respiratory symptoms. There is concern from GI Dr. Eddy regarding adverse effects of theophylline contributing to the patient's diarrhea & N/V. She is on this medication because at the time of prescribing, she was already on triple inhaled therapy, and the only alternative left was daily systemic steroids -the goal is to avoid this if possible given the multiple long-term adverse effects, as well as her underlying history of DM2. I have periodically monitored her theophylline levels which have remained within the therapeutic range of 10-20. The patient has been counseled that smoking cessation will increase the theophylline level, increasing the risk of adverse effects (as smoking increases the hepatic metabolism of theophylline). However, regardless of the serum theophylline level, patients can still experience side effects such as N/V & diarrhea. As her breathing has been relatively stable over the last 18 months, I suggested that the patient decrease her theophylline dose from 450mg (1+1/2 300mg tab) to 300mg BID - we will need to see if this decreases her incidence of N/V & diarrhea without causing increased dyspnea. If her respiratory symptoms worsen but GI symptoms improved, this suggests theophylline is a major culprit. Over the last 8 months, 2 new medications have been FDA approved for COPD; Dupixent and Ohtuvayre. She is not a Dupixent candidate as she does not have eosinophils @ or >300 to qualify. Ohtuvayre is an option -its mechanism of action is somewhat similar to theophylline as a PDE 3/PDE 4 inhibitor. She would need to stop theophylline approximately 5 days for washout before starting Ohtuvayre. Difficulty is that Ohtuvayre may not be covered by [employer]. Patient was instructed to contact me if she is not tolerating the change of theophylline dose. Otherwise, she will return in 6 months for longitudinal evaluation. Lkkw-pq-mvmc encounter performed with the patient to document continued need for a nebulizer with nebulized medications. -Current nebulized medications: DuoNeb -Symptom control: Assists in control when Flovent + Bevespi are not enough, especially during weather changes -Reported side or adverse effects: None -Recommendations: Continue DuoNeb with nebulizer. Refill nebulizer and nebulizer supplies as necessary. Cigarette nicotine dependenc e with nicotine-induced disorder Patient quit smoking 2 days ago. This is her third attempt. Counseled patient to not be upset over the relapse; smoking/nicotine is extremely addictive and it can take multiple attempts for someone to quit smoking. I offered her encouragement on her smoking cessation journey. LDCT 05/29/2024 RADS-1. 1 year LDCT is due end of April 2025. Pulmonary embolism Unprovoked pulmonary emboli identified on CTA 06/16/2023 - Hypercoaguable w/up was negative. F/U with hematology. Obstructive sleep apnea Managed by Dr. Khan. Diabetes mellitus type 2, controlled Steroids prescribed for this patient's underlying pulmonary disease can adversely affect blood glucose levels, inducing hyperglycemia and worsening underlying diabetes. The patient is encouraged to follow up with the primary care provider to create a plan to manage diabetes in this situation. 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 Obesity, unspecified Patient's weight is inducing a restrictive pulmonary physiology. Weight loss indicated: Decrease calories, increase activity. Next Appt Details Follow Up: 6 Months, Reason: COPD, O2 Provider Name:Calvin Russo, 07/31/2025 08:30:00 AM, [address] [place], [address], Procedure Notes * Category Sub-Category Detail Notes PFT Data: 02/13/2024-FEV1/F VC: 77%-FEV1: 54%-FVC: 54%-Bronchodilator response: Partial-RV: 107%-T%-DLCO: 60%-Flow-volume loop: Moderate restriction02/01/2023-FEV1/FVC: 80%-FEV1: 52%-FVC: 51%-Bronchodilator response: None-RV: 89%-T%-DLCO: 49%-Flow-volume loop: Moderate restriction03/13/2021-FEV1/FVC: 75%-FEV1: 48%-FVC: 50%-Bronchodilator response: None-RV: 114%-T%-DLCO: 59%-Flow-volume loop: Moderate oxmgwyhnope33/7/2019-FEV1/FVC: 76%-FEV1: 53%-FEV1: 55%-Bronchodilator response: none-RV: 136%-T%-DLCO:79%-FeNO: 5-Cggf-qatrvu loop: Moderate restriction06/10/2016-FEV1/FVC: 72%-FEV1: 57%-FVC: 63%-Bronchodilator response: none-RV: 184%-T%-DCO: 81%-Flow-volume loop: Moderate restriction with obstructive pattern Alpha-1 Antitrypsin Screening Date: 03/04/2021 Genotype: MM Progress Notes * Sis MOOREDOB: [birth year] (59 yo F)Acc No.[id number]:01/30/2025 Follow Up Patient: Sis TORRES Provider: Ruthann Russo DO :1965 A ge:59 Y S ex:Female Date:01/30/2025 Address:[address] [place] [address] , [place], [id number] Pcp:Brea Jj, [employer] Check In:08:13 AM ESTCheck O ut:08:52 AM EST Subjective: * Chief Complaints: * 6 MO-COPD * HPI: G eneral: Patient states that her breathing has been doing fairly well since last visit. She remains on Flovent and Bevespi without any adverse effects. She states she is using both inhalers appropriately at 2 puffs twice daily. No oral ulcers/candidiasis. She denies using her albuterol HFA. However, she admits to using DuoNebs over the last several days-[place] [facility] is [place] [facility] [place] She continues to use supplemental O2 with benefit with activity. She quit smoking again, 2 days ago. She has been having some diarrhea along with N/V. She saw Dr. Eddy @ [facility]. There are plans for colonoscopy, but patient states that she was unable to afford the colon prep... MA Intake Comments:. Patient presents for a follow-up for COPD. Patient is currently on 3L O2 at home. DME:[facility]. Patient complains of SOB & Sinus Congestion. Patient stopped smoking two days ago. Patient states she really wants to quit but reports it has been hard. Patient is using Bevespi & Flovent daily with benefit. Patient reports not having to use her rescue inhaler. Patient reports using her Nebulizer occasionally. Patient was scheduled for diagnostic EGD/Colonoscopy on 01/28/2025 but did not have the procedure done as she was unable to afford the pre-op medications and was nervous. Patient is under the care of [facility] Cardiology & [facility] Hematology. * ROS: G eneral/Constitutional: Fever or sweats d enies. C hange of appetite d enies. C hills d enies. W eight Change d enies. H EENT: Dry mouth d enies. S ore throat d enies. O ral Ulcers d enies. P ost Nasal Drip A dmits. C ongestion M ild. H oarseness D enies. C ardiovascular: Tachycardia d enies. C hest pain d enies. P alpitations d enies. R espiratory: Pleurisy D enies. D yspnea w ith exertion. C ough d enies. H emoptysis d enies. W heezing d enies. G astrointestinal: Acid Reflux/GERD/Heartburn d enies. D ysphagia d enies. M usculoskeletal: Arthralgias/joint pain D enies. S kin: Easy bruising d enies. R mishel d enies. ? N eurologic: Seizures d enies. T remor d enies. H ematology: Abnormal Bleeding d enies. P sychiatric: Anxiety a dmits. * Active Problem List J96.11 Chronic respiratory failure with hypoxia Modified On:02/01/2024/U Status:confirmed Z79.51 nursing home (current) use of inhaled steroids Modified On:02/01/2024/U Status:confirmed I26.99 Pulmonary embolism Modified On:02/01/2024/U Status:confirmed I25.10 Coronary artery dise ase Modified On:02/01/2024/U Status:confirmed G47.33 Obstructive sleep ap aleida Modified On:02/01/2024/U Status:confirmed F17.219 Cigarette nicotine d ependence with nicotine-induced disorder Modified On:02/01/2024/U Status:confirmed D50.9 Iron deficiency anem ia Modified On:02/01/2024/U Status:confirmed E11.9 Diabetes mellitus ty pe 2, controlled Modified On:02/01/2024/U Status:confirmed J43.8 Paraseptal emphysema Modified On:08/01/2024U Status:confirmed 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 Modified On:02/01/2024U Status:confirmed Z86.16 History of COVID-19 Modified On:02/01/2024U Status:confirmed Z12.2 Encounter for screen ing for lung cancer Modified On:02/03/2023U Status:confirmed E66.9 Obesity, unspecified Modified On:02/01/2024U Status:confirmed J44.9 Chronic obstructive pulmonary disease, unspecified Modified On:02/16/2024 Status:confirmed * Medical History: * Surgical History: c esarean section tubal ligation arthroscopic knee surgery-left Cardiac Catheterization 06/15/2021ight Foot Surgery * Hospitalization/Major Diagno stic Procedure: P ulmonary embolism 06/16/2023 * Family History: F ather: Lung cancer, diagnosed with Other malignant neoplasm of unspecified site. M other: respiratory diseases. * Social History: T obacco Use: T obacco Control (Standard) T obacco use: F ormer smoker H ow long has it been since you last smoked??Less than 1 month A dditional Findings: Tobacco non-user E x-light cigarette smoker (1-9/day) Electronic Cigarette use C urrent user N o LM: Additional Tobacco Questions N umber of Years Pt Smoked: 4 2 N umber of Packs per Day: 2 When did you stop smokin01/28/2025. M iscellaneous: O ccupation O ccupation: U nemployed [employer] Pets: cats, dog. D rugs/Alcohol: D rugs H ave you used drugs other than those for medical reasons in the past 12 months? N o D oes the Patient have a History of Drug Abuse in the Past? N o Caffeine I ntake: 1 -2 cups per day Coffee Do you drink alcohol?: No. Do you smoke marijuana?: Denies. * Medications: T akingAlbuterol Sulfate HFA 108 (90 Base) MCG/ACT Aerosol Solution 2 puffs as needed for SOB Inhalation every 4 hrs Aspirin 81(Aspirin) 81 MG Tablet Delayed Release 1 tablet Orally Once a day Atorvastatin Calcium 40 MG Tablet 1 tablet Orally Once a day Bevespi Aerosphere(Glycopyrrolate-Formoterol) 9-4.8 MCG/ACT Aerosol 2 puffs Inhalation Twice a day busPIRone HCl 15 MG Tablet 1 tablet Orally Twice a day Carafate(Sucralfate) 1 GM Tablet 1 tablet on an empty stomach Orally Twice a day Celecoxib 200 MG Capsule TAKE ONE CAPSULE BY MOUTH ONCE DAILY IN THE MORNING Oral clonazePAM 0.5 MG Tablet TAKE 1 TABLET (0.5 MG) BY MOUTH AT BEDTIME Oral Doxepin HCl 10 MG Capsule 1 capsule at bedtime Orally Once a day DULoxetine HCl 60 MG Capsule Delayed Release Particles 1 capsule Orally Once a day FeroSul(Ferrous Sulfate) 325 (65 Fe) MG Tablet TAKE ONE TABLET BY MOUTH ONCE DAILY Oral Fluticasone Propionate 50 MCG/ACT Suspension 2 sprays in each nostril Nasally Once a day Fluticasone Propionate HFA 110 MCG/ACT Aerosol 2 puffs Inhalation BID Rinse after use; Dispense #3Gabapentin 300 MG Capsule 1 capsule Orally Once a day Ipratropium-Albuterol 0.5-2.5 (3) MG/3ML Solution 3mL Inhalation QID LaMICtal(lamoTRIgine) 25 MG Tablet 1 tablet Orally Lasix(Furosemide) 20 MG Tablet 1 tablet Orally Once a day Lisinopril-hydroCHLOROthiazide 20-25 MG Tablet 1 tablet Orally Once a day Pioglitazone HCl 15 MG Tablet 1 tablet Orally Once a day Potassium Chloride ER 10 MEQ Tablet Extended Release 1 tablet with food Orally Twice a day Pramipexole Dihydrochloride 0.5 MG Tablet 1 tablet Orally Once a day Theophylline ER 300 mg Tablet Extended Release 12 Hour TAKE 1.5 TABLETS BY MOUTH EVERY 12 HOURS Xanax(ALPRAZolam) 0.25 MG Tablet 1 tablet Orally Twice a day Taking Albuterol Sulfate HFA 108 (90 Base) MCG/ACT Aerosol Solution 2 puffs as needed for SOB Inhalation every 4 hrs Taking Aspirin 81(Aspirin) 81 MG Tablet Delayed Release 1 tablet Orally Once a day Taking Atorvastatin Calcium 40 MG Tablet 1 tablet Orally Once a day Taking Bevespi Aerosphere(Glycopyrrolate-Formoterol) 9-4.8 MCG/ACT Aerosol 2 puffs Inhalation Twice a day Taking busPIRone HCl 15 MG Tablet 1 tablet Orally Twice a day Taking Carafate(Sucralfate) 1 GM Tablet 1 tablet on an empty stomach Orally Twice a day Taking Celecoxib 200 MG Capsule TAKE ONE CAPSULE BY MOUTH ONCE DAILY IN THE MORNING Oral Taking clonazePAM 0.5 MG Tablet TAKE 1 TABLET (0.5 MG) BY MOUTH AT BEDTIME Oral Taking Doxepin HCl 10 MG Capsule 1 capsule at bedtime Orally Once a day Taking DULoxetine HCl 60 MG Capsule Delayed Release Particles 1 capsule Orally Once a day Taking FeroSul(Ferrous Sulfate) 325 (65 Fe) MG Tablet TAKE ONE TABLET BY MOUTH ONCE DAILY Oral Taking Fluticasone Propionate 50 MCG/ACT Suspension 2 sprays in each nostril Nasally Once a day Taking Fluticasone Propionate HFA 110 MCG/ACT Aerosol 2 puffs Inhalation BID Rinse after use; Dispense #3Taking Gabapentin 300 MG Capsule 1 capsule Orally Once a day Taking Ipratropium-Albuterol 0.5-2.5 (3) MG/3ML Solution 3mL Inhalation QID Taking LaMICtal(lamoTRIgine) 25 MG Tablet 1 tablet Orally Taking Lasix(Furosemide) 20 MG Tablet 1 tablet Orally Once a day Taking Lisinopril-hydroCHLOROthiazide 20-25 MG Tablet 1 tablet Orally Once a day Taking Pioglitazone HCl 15 MG Tablet 1 tablet Orally Once a day Taking Potassium Chloride ER 10 MEQ Tablet Extended Release 1 tablet with food Orally Twice a day Taking Pramipexole Dihydrochloride 0.5 MG Tablet 1 tablet Orally Once a day Taking Theophylline ER 300 mg Tablet Extended Release 12 Hour TAKE 1.5 TABLETS BY MOUTH EVERY 12 HOURS Taking Xanax(ALPRAZolam) 0.25 MG Tablet 1 tablet Orally Twice a day DiscontinuedtraZODone HCl 50 MG Tablet 1 tablet at bedtime as needed Orally Once a day Medication List reviewed and reconciled with the patientDiscontinued traZODone HCl 50 MG Tablet 1 tablet at bedtime as needed Orally Once a day Medication List reviewed and reconciled with the patient * Allergies: N .K.D.A.no[Allergies Verified] Objective: * Vitals: W t:258.4lbs, Ht: 69 in, BP:sittin/73mm Hg, Temp:Forehead:96.8F, HR:93/min, RR:20/min, BMI:38.15Index, Oxygen sat %:Oxygen 3l:94%, Ht-cm: 175.26 cm, Wt-k.21 kg. * Examination: E xam: GENERAL APPEARANCE: I n no acute distress. Skin N ormal. Mouth P ink and moist. E dentulous. No oral candidiasis. Oropharynx/Tongue M allampati Class III. M acroglossia.? Trachea M idline. Chest N ormal. Respiratory Normal M ovements, E ffort N ormal. Auscultation B reath sounds are diminished but clear to auscultation - no wheezes, crackles, or rhonchi. Cardiac R egular rate and rhythm. Gastrointestinal I ncreased central adiposity. Vascular N o edema. Musculoskeletal N ormal posture. Neurological F ocal, intact. Psychiatric A lert and oriented x3. Mentation/Cognition N ormal. Assessment: * Assessment: 1. P araseptal emphysema - J43.8 (Primary) 2 . C hronic respiratory failure with hypoxia - J96.11 3 . C igarette nicotine dependence with nicotine-induced disorder - F17.219 4 . P ulmonary embolism - I26.99 5 . O bstructive sleep apnea - G47.33 6 . D iabetes mellitus type 2, controlled - E11.9? 7. L balaji term (current) use of inhaled steroids - Z79.51 8 .?Obesity, unspecified - E66.9 Plan: * Treatment: 2. C hronic respiratory failure with hypoxia P rocedure: Six minute walk Notes: Poqx-fv-pkqu encounter performed with the patient to document continued need for supplemental oxygen (O2). -Flow & directions: Currently on room air at rest and 2L/min O2 with activity.-Patient voices adherence to recommended usage: Yes-Symptom control on O2: Improved shortness of breath-Counseled patient not begin, restart, or continue smoking, around the O2 due to risk of fire which could result in damage to the O2 tanks & lines, smoke inhalation and flame damage to the airway, significant garcia, potential , property damage, and potential harm & to bystanders. Additionally, counseled it is not [place] to begin, restart, or continue smoking given the underlying pulmonary disease that led to the point of requiring O2.-Recommendations: She continues to have benefit from supplemental O2. In anticipation for renewal of O2, ordering 6-minute walk to requalify the patient. ? 3. C igarette nicotine dependence with nicotine-induced disorder Notes: Patient quit smoking 2 days ago. This is her third attempt. Counseled patient to not be upset over the relapse; smoking/nicotine is extremely addictive and it can take multiple attempts for someone to quit smoking. I offered her encouragement on her smoking cessation journey. LDCT 05/29/2024 RADS-1. 1 year LDCT is due end of April 2025. 4. P ulmonary embolism Notes: Unprovoked pulmonary emboli identified on CTA 06/16/2023 - Hypercoaguable w/up was negative. F/U with hematology. 5. O bstructive sleep apnea Notes: Managed by Dr. Khan. 6. D iabetes mellitus type 2, controlled Notes: Steroids prescribed for this patient's underlying pulmonary disease can adversely affect blood glucose levels, inducing hyperglycemia and worsening underlying diabetes. The patient is encouraged to follow up with the primary care provider to create a plan to manage diabetes in this situation. ? 7. L balaji term (current) use of inhaled steroids Notes: Patient was counseled to rinse & gargle with water after inhaled corticosteroid use. 8. O besity, unspecified Notes: Patient's weight is inducing a restrictive pulmonary physiology. Weight loss indicated: Decrease calories, increase activity. * Procedures: A lpha-1 Antitrypsin: Screening Date: . Genotype: M M. P FT: Data: 02/13/2024 -FEV1/FVC: 77% -FEV1: 54% -FVC: 54% -Bronchodilator response: Partial -RV: 107% -T% -DLCO: 60% -Flow-volume loop: Moderate restriction 02/01/2023 -FEV1/FVC: 80% -FEV1: 52% -FVC: 51% -Bronchodilator response: None -RV: 89% -T% -DLCO: 49% -Flow-volume loop: Moderate restriction 03/13/2021 -FEV1/FVC: 75% -FEV1: 48% -FVC: 50% -Bronchodilator response: None -RV: 114% -T% -DLCO: 59% -Flow-volume loop: Moderate obstruction 10/06/2019 -FEV1/FVC: 76% -FEV1: 53% -FEV1: 55% -Bronchodilator response: none -RV: 136% -T% -DLCO:79% -FeNO: 9 -Flow-volume loop: Moderate restriction 06/10/2016 -FEV1/FVC: 72% -FEV1: 57% -FVC: 63% -Bronchodilator response: none -RV: 184% -T% -DCO: 81% -Flow-volume loop: Moderate restriction with obstructive pattern. * Procedure Codes: * Preventive Medicine: COVID Vaccination: H as patient had COVID Vaccination? COVID Vaccination Y es 02/13/2021 Immunization Status: P neumovacc P t Refused. I nfluenza 0 07/16/2024. Screenings/Counseling: F ALL RISK SCREENING Fall Risk Assessment: N o falls in the past year Are you afraid of falling? N o T OBACCO ACTION PLAN Patient counselled on the dangers of tobacco use and urged to quit. 0 01/30/2025 Cessation counseling provided 0 01/30/2025 B [place] ACTION PLAN Above Normal BMI Follow-up D ietary management education, guidance, and counseling * Follow Up: 6 Months (Reason: COPD, O2) * * Sign off status: Completed Visit Status: C HK (Check Out) true * Provider: Ruthann Russo DO Date: 0 01/30/2025 Generated for Joe landers/Angelica/Ofeliaitting on: 0 04/17/2025 09:47 AM EDT History and Physical Notes * HPI (History of Present Illness) Category Sub-Category Detail Notes Category Not es General Patient present s for a follow-up for COPD. Patient is currently on 3L O2 at home. DME:[facility]. Patient complains of SOB & Sinus Congestion. Patient stopped smoking two days ago. Patient states she really wants to quit but reports it has been hard. Patient is using Bevespi & Flovent daily with benefit. Patient reports not having to use her rescue inhaler. Patient reports using her Nebulizer occasionally. Patient was scheduled for diagnostic EGD/Colonoscopy on 01/28/2025 but did not have the procedure done as she was unable to afford the pre-op medications and was nervous. Patient is under the care of [facility] Cardiology & [facility] Hematology. Examination Category Sub-Category Detail Notes Category Not es Exam GENERAL APPEARANCE: In no acute distress Skin Normal Mouth [place] and moist. Dodie tulous. No oral candidiasis Trachea Midline Chest Normal Respiratory Normal Movements, Ef fort Normal Auscultation Breath sounds are di minished but clear to auscultation - no wheezes, crackles, or rhonchi Percussion Egophony Bronchophony Fremitus Whispered pectoriloquy Cardiac Regular rate and rhy thm Gastrointestinal Increased central ad iposity Vascular No edema Musculoskeletal Normal posture Neurological Focal, intact Psychiatric Alert and oriented x 3 Mentation/Cognition Normal Oropharynx/Tongue Mallampati Class III . Macroglossia
--- OUTSIDE RECORDS SUMMARY | 2025-02-19 04:52 | XMS_ITS ---
Author Organization [facility] in [place] Address [address] [place] [address] Care Team Providers Care Frame Runner Name Role Phone Brea Jj CNP Primary Care Provider Unavail able Calvin Russo Unavailable [phone] REASON FOR VISIT SOB Medications Medication SIG (Take, Route, Fr equency, Duration) Notes Start Date End Date Status predniSONE 20 MG 3 tabs x 3 days, 2 t abs x 3 days, 1 tab x 3 days Orally Once a day for 9 days 02/19/2025 Active Encounters Encounter Location Date Provider Diagnosis Pulmonary Medicine [place] [address] [place] [address] 02/19/2025 Calvin Russo Chronic obstructive pulmonary disease [...] Once a day for 9 days 02/19/2025 Next Appt Details Provider Name:Calvin Bennett, 07/31/2025 08:30:00 AM, [address] [place], [address], Progress Notes * Sis MOOREDOB: [birth year] (59 yo F)Acc No.[id number]:02/19/2025 Patient: Sis TORRES :1965 A ge:59 Y S ex:Female Address:[address] [place] [address] , [place], [address] * Refills Start predniSONE Tablet, 20 MG, [...] * true * Date: Generated for Joe landers/Angelica/eTransmitting on: 0 04/17/2025 09:48 AM EDT
--- NOTE | 2025-04-17 | MM_ITS ---
Patient Name: ALIYA CONDON MR#: [id number] : 1965 Exam Date: 04/17/2025 Ordering Doctor: ENRIQUE HAMEED CNP RADIOLOGY REPORT PROCEDURE: MM TOMOSYNTHESIS SCREENING BI COMPARISON: MM TOMOSYNTHESIS SCREENING BI, 04/16/2024. MM TOMOSYNTHESIS SCREENING BI, 04/14/2023. MG MAMM SCREEN 3D EMY CAD, 04/30/2022. MG MAMM EMY SCRN W CAD DIG, 09/05/2007. INDICATIONS: Screening Calculator Name NCI Breast Cancer Risk Assessment Tool 5 Year Breast Cancer Risk 0.90% Lifetime Breast Cancer Risk 4.90% Personal Breast Cancer No Personal Ovarian Cancer No Treatments None Family Cancers None LOCATION: [facility] BREAST COMPOSITION: The breasts are almost entirely fatty. FINDINGS: DIAGNOSTIC CATEGORY 1--NEGATIVE. RIGHT BREAST: No significant suspicious finding. LEFT BREAST: No significant suspicious finding. RECOMMENDATIONS: ROUTINE MAMMOGRAM AND CLINICAL EVALUATION IN 12 MONTHS. PLEASE NOTE: A NORMAL MAMMOGRAM DOES NOT EXCLUDE THE POSSIBILITY OF BREAST CANCER. A CLINICALLY SUSPICIOUS PALPABLE LUMP SHOULD BE BIOPSIED. Dictated by: Malcom Andre DO on 04/17/2025 at 16:37 Approved by: Malcom Andre DO on 04/17/2025 at 16:38
--- OUTSIDE RECORDS SUMMARY | 2025-04-17 09:47 | XMS_ITS | Encounter Summary ---
Author Organization [facility] Address [address] [facility] [place] [address] Care Team Providers Care Maintenance Mechanic Helper Name Role Phone Brea Jj COMPUTED TOMOGRAPHY SCANNER OPERATOR Unavailable [phone] Jose M Light MD Primary Care Provider [phone] Brea Jj COMPUTED TOMOGRAPHY SCANNER OPERATOR Unavailable [phone] Tram Crooks FUNDRAISING SPECIALIST Unavailable Diana Stephen FUNDRAISING SPECIALIST Unavailable [phone] Encounter Details Date Type Department Care Team (Late st Contact Info) Description 01/16/2024 Orders Only [facility] [address] [place] [address] Brea Jj NP [address] [place] [address] Social History Tobacco Use Types Packs/Day Years Used Date Smoking Tobacco: Former Cigarettes Smokeless Tobacco: Never Comments:11-20 cigarettes/da y Alcohol Use Standard Drinks/Week Comments Never 0 (1 standard drink = 0.6 oz pur e alcohol) caffeine 2-3 cups per day AUDIT-C Answer Date Recorded Q1: How often do you have a drink containing alcohol? Never 04/21/2023 Q2: How many drinks containi ng alcohol do you have on a typical day when you are drinking? Patient does not drink Q3: How often do you have si x or more drinks on one occasion? Never 04/21/2023 PHQ-2 Answer Date Recorded Patient Health Questionnaire-2 Score 1 12/05/2023 Comments No Sex and Gender Information Value Date Recorded Sex Assigned at Female 04/20/2023 11:58 AM EDT Legal Sex Female 6:39 PM EDT Gender Identity Female 04/20/2023 11:58 AM EDT Sexual Orientation Straight 04/20/2023 11 :58 AM EDT documented as of this encounter Plan of Treatment Upcoming Encounters Date Type Department Care Team (Late st Contact Info) Description 05/28/2025 9:00 AM EDT Office Visit [facility] [address] [place] [address] Brea Jj NP [address] [place] [address] documented as of this encounter Procedures Procedure Name Priority Date/Time Associated Diagnosis Comments MISCELLANEOUS LAB TEST Routine 01/16/2024 2:11 PM EDT BASIC METABOLIC PANEL Routine 01/16/2024 2:11 PM EDT documented in this encounter Results * Basic metabolic panel (01/16/2024 2:11 PM EDT) Blood Venous blood specimen / Unknown Brea Jj NP LAB BLOOD ORDERABLES Final Resu lt * - Miscellaneous Test (01/16/2024 2:11 PM EDT) Brea Jj NP LAB BLOOD ORDERABLES Final Resu lt documented in this encounter Visit Diagnoses Not on filedocumented in this encounter Care Teams Maintenance Mechanic Helper Relationship Specialty Start Date End Date Jose M Light MD [address] [place] [address] PCP - General Family Medicine 10/18/23 Brea Jj NP [address] [place] [address] PCP - [facility] 07/31/24 Brea Jj NP [address] [place] [address] Nurse Practitioner Family Medicine 10/18/23 Tram Crooks, FUNDRAISING SPECIALIST [address] [place] [address] Surgical Corsetier Coagulating Bath Operator 11/14/24 11/15/24 Diana Stephen, [facility] [address] [place], [place] [id number] Surgical Corsetier Family Medicine 11/15/24 11/26/24 documented as of this encounter
--- OUTSIDE RECORDS SUMMARY | 2025-04-17 09:48 | XMS_ITS | Encounter Summary ---
Author Organization [facility] Address [address] [facility] [place] [address] Care Team Providers Care Hay Buckler Name Role Phone Brea Jj COLLECT ON DELIVERY CLERK Unavailable [phone] Jose M Light MD Primary Care Provider [phone] Brea Jj COLLECT ON DELIVERY CLERK Unavailable [phone] Tram Crooks LEAD FRONT END DEVELOPER Unavailable Diana Stephen LEAD FRONT END DEVELOPER Unavailable [phone] Encounter Details Date Type Department Care Team (Late st Contact Info) Description 04/16/2024 Clinisync Result Encounter [facility] External Department Unsolicited Brea Jj NP [address] [facility] [place] [address] Social History Tobacco Use Types Packs/Day Years [...] 05/28/2025 9:00 AM EDT Office Visit [facility] [address] [place] [address] Brea Jj NP [address] [place] [address] documented as of this encounter Procedures Procedure Name Priority Date/Time Associated Diagnosis Comments MM TOMOSYNTHESIS SCREENING BI 04/16/2024 3:04 PM EDT documented in this encounter Results * MM TOMOSYNTHESIS SCREENING BI (04/16/2024 3:04 PM EDT) Anatomical Region Laterality Modality Other 04/16/2024 3:04 PM EDT Narrative 04/16/2024 3:05 [place] [address] Mammography Report Signed Patient: SIS MOORE MR#: [id number] : 1965 Acct:[id number] Age/Sex: 58 / F ADM Date: 04/16/24 Loc: MAMMO Attending Dr: Brea Jj NP Ordering Physician: Brea Jj NP Results: Date of Service: 04/16/24 Follow Up: Procedure(s): MM tomosynthesis screening BI Accession Number(s): [id number] cc: Brea Jj NP Patient Name: SIS MOORE MR#: [id number] : 1965 Exam Date: 04/16/2024 Ordering Doctor: ENRIQUE Jj RATE AND COST ANALYST RADIOLOGY REPORT PROCEDURE: MM TOMOSYNTHESIS SCREENING BI COMPARISON: MM TOMOSYNTHESIS SCREENING BI, 04/14/2023. MG MAMM SCREEN 3D EMY CAD, 04/30/2022. MG MAMM SCREEN 3D EMY CAD, 04/29/2021. MG MAMM EMY SCRN W CAD DIG, 09/05/2007. INDICATIONS: Screening Calculator Name NCI Breast Cancer Risk Assessment Tool 5 Year Breast Cancer Risk 0.90% Lifetime Breast Cancer Risk 5.00% Personal Breast Cancer No Personal Ovarian Cancer No Treatments None Family Cancers None LOCATION: [facility] BREAST COMPOSITION: The breasts are almost entirely fatty. FINDINGS: DIAGNOSTIC CATEGORY 2--BENIGN FINDING: RIGHT BREAST: No significant suspicious finding. Scattered benign-appearing calcifications are present. No significant change has occurred. LEFT BREAST: No significant suspicious finding. Scattered benign-appearing calcifications are present. No significant change has occurred. RECOMMENDATIONS: ROUTINE MAMMOGRAM AND CLINICAL EVALUATION IN 12 MONTHS. PLEASE NOTE: A NORMAL MAMMOGRAM DOES NOT EXCLUDE THE POSSIBILITY OF BREAST CANCER. A CLINICALLY SUSPICIOUS PALPABLE LUMP SHOULD BE BIOPSIED. Dictated by: Papito Downs M.D. on 04/16/2024 at 14:17 Approved by: Papito Downs M.D. on 04/16/2024 at 15:04 Dictated By: Papito Downs M.D. Signed By: 04/16/24 1505 DD/ 1504 TD/TT: Decision Support Manager: Procedure Note Radiology, Radiologist, MD - 04/16/2024 [place] [address] Mammography Report Signed Patient: SIS MOORE JMR#: [id number] : 1965Acct:[id number] Age/Sex: 58 / FADM Date: 04/16/24 Loc: MAMMO Attending Dr: Brea Jj NP Ordering Physician: Brea Jj NPResults: Date of Service: 04/16/24Follow Up: Procedure(s): MM tomosynthesis screening BI Accession Number(s): [id number] cc: rBea Jj NP Patient Name: SIS MOORE MR#: [id number] : 1965 Exam Date: 04/16/2024 Ordering Doctor: ENRIQUE Jj CNP RADIOLOGY REPORT PROCEDURE: MM TOMOSYNTHESIS SCREENING BI COMPARISON: MM TOMOSYNTHESIS SCREENING BI, 04/14/2023. MG MAMM [id number] EMY CAD, 04/30/2022. MG MAMM SCREEN 3D EMY CAD, 04/29/2021. MG MAMM BILSCRN W CAD DIG, 09/05/2007. INDICATIONS: Screening Calculator Name NCI Breast Cancer Risk Assessment Tool 5 Year Breast Cancer Risk 0.90% Lifetime Breast Cancer Risk 5.00% Personal Breast Cancer No Personal Ovarian Cancer No Treatments None Family Cancers None LOCATION: [facility] BREAST COMPOSITION: The breasts are almost entirely fatty. FINDINGS: DIAGNOSTIC CATEGORY 2--BENIGN FINDING: RIGHT BREAST: No significant suspicious finding. Scatteredbenign-appearing calcifications are present. No significant change has occurred. LEFT BREAST: No significant suspicious finding. Scatteredbenign-appearing calcifications are present. No significant change has occurred. RECOMMENDATIONS: ROUTINE MAMMOGRAM AND CLINICAL EVALUATION IN 12 MONTHS. PLEASE NOTE: A NORMAL MAMMOGRAM DOES NOT EXCLUDE THE POSSIBILITY OFBREAST CANCER. A CLINICALLY SUSPICIOUS PALPABLE LUMP SHOULD BE BIOPSIED. Dictated by: Papito Downs M.D. on 04/16/2024 at 14:17 Approved by: Papito Downs M.D. on 04/16/2024 at 15:04 Dictated By: Papito Downs M.D. Signed By:04/16/24 1505 DD/ 1504 TD/TT: Decision Support Manager: Brea Jj NP [facility] Final Result documented in this encounter Visit Diagnoses Not on filedocumented in this encounter Care Teams Hay Buckler Relationship Specialty Start Date End Date Jose M Light MD [address] [place] [address] PCP - General Family Medicine 10/18/23 Brea Jj NP [address] [place] [address] PCP - [facility] 07/31/24 Brea Jj NP [address] [place] [address] Nurse Practitioner Family Medicine 10/18/23 [place] [address] [place] [address] Byproducts Maker Range Aide 11/14/24 11/15/24 Diana Stephen, [facility] [address] [place] [address] Byproducts Maker Family Medicine 11/15/24 11/26/24 documented as of this encounter
--- OUTSIDE RECORDS SUMMARY | 2025-04-17 09:48 | XMS_ITS | Encounter Summary ---
Author Organization [facility] Address [address] [address] Care Team Providers Care Pathology Manager Name Role Phone Brea Jj MD Primary Care Provider Reason for Visit * Reason Comments Med Refill Encounter Details Date Type Department Care Team (Late st Contact Info) Description 06/09/2023 Refill [facility] [address] [place] [phone] Marlene Soto MD [address] [facility] [address] [facility] [place] [phone] Edema, unspecified type; Benign essential HTN; Coronary-myocardial bridge; Edema of both lower extremities Social History Tobacco Use Types Packs/Day Years Used Date Smoking Tobacco: Former Cigarettes Q uit: 2020 Smokeless Tobacco: Never Alcohol Use Standard Drinks/Week Comments Not Currently 0 (1 standard drink = 0.6 oz pur e alcohol) occasional Comments Unknown Sex and Gender Information Value Date Recorded Sex Assigned at Not on file Legal Sex Female 10:24 PM EDT Gender Identity Not on file Sexual Orientation Not on file documented as of this encounter Miscellaneous Notes * Telephone Encounter - Shira Hernandes MA - 06/09/2023 12:06 PM EDT Patient will need a follow up appointment for further refills documented in this encounter Plan of Treatment Not on file documented as of this encounter Visit Diagnoses Diagnosis Edema, unspecified type Benign essential HTN Coronary-myocardial bridge Edema of both lower extremities documented in this encounter Care Teams Pathology Manager Relationship Specialty Start Date End Date Brea Jj MD [address] [place] [address] PCP - General 12/24/22 documented as of this encounter
--- OUTSIDE RECORDS SUMMARY | 2025-04-17 09:48 | XMS_ITS | Encounter Summary ---
Author Organization [facility] Address [address] [facility] [place] [address] Care Team Providers Care Accounts Payable Processor Name Role Phone Brea Jj NP Unavailable [phone] Jose M Light MD Primary Care Provider [phone] Brea Jj PURSE SEINER Unavailable [phone] Tram Crooks MANAGER SEARCH Unavailable Diana Stephen MANAGER SEARCH Unavailable Encounter Details Date Type Department Care Team (Late st Contact Info) Description 04/02/2024 Orders Only [facility] [address] [place] [address] Brea Jj NP [address] [place] [address] Social History Tobacco Use Types Packs/Day Years [...] 9:00 AM EDT Office Visit [facility] [address] [place] [address] Brea Jj NP [address] [place] [phone] documented as of this encounter Procedures Procedure Name Priority Date/Time Associated Diagnosis Comments ELECTROCARDIOGRAM REPORT Routine 024 8:56 AM EDT documented in this encounter Results * Electrocardiogram Report (03/31/2024 8:56 AM EDT) us Brea Jj NP IN CLINIC/BEDSIDE ORDERABLES Fi nal Result documented in this encounter Visit Diagnoses Not on filedocumented in this encounter Care Teams Accounts Payable Processor Relationship Specialty Start Date End Date Jose M Light MD [address] [place] [phone] PCP - General Family Medicine 10/18/23 Brea Jj NP [address] [place] [address] PCP - [facility] 07/31/24 Brea Jj NP [address] [place] [address] Nurse Practitioner Family Medicine 10/18/23 Tram Crooks, MANAGER SEARCH [address] [place] [address] Sales Contracts Analyst Crystal Calibrator 11/14/24 11/15/24 Diana Stephen, SKY [address] [place], [place] [phone] Sales Contracts Analyst Family Medicine 11/15/24 11/26/24 documented as of this encounter
--- OUTSIDE RECORDS SUMMARY | 2025-04-17 09:48 | XMS_ITS | Patient Health Record ---
Author Organization [facility] [place] Address [address] [place] [address] Care Team Providers Care Light Cleaner Name Role Phone Brea Jj CNP Primary Care Provider Unavail able Calvin Gaines Unavailable [phone] Allergies No Known Allergies Results Component Value Reference Range Notes CT Chest Low Dose for Screen ing* Reviewed date:05/30/2024 08:45:36 AM Interpretation: Performing Lab: Notes/Report: CT lung screening low-dose Reviewed date:05/30/2024 06:26:02 AM Interpretation: Performing Lab: Notes/Report: Source Facility: [place] [address] CT Scan Report Signed Patient: SIS MOORE MR#: [id number] : 1965 Acct:[id number] Age/Sex: 58 / F ADM Date: 05/29/24 Loc: CT Attending Dr: Calvin Gaines D.O. Ordering Physician: Calvin Gaines D.O. Date of Service: 05/29/24 Procedure(s): CT lung screening low-dose Accession Number(s): [id number] cc: Brea Jj NP [place] [address] Patient Name: SIS MOORE MRN: [id number] date: 1965 Sex: F Assigned Patient Location: CT Current Patient Location: CT Accession/Order Number: [id number] Exam Date: 05/29/2024 09:29 Report Date: 05/29/2024 16:02 At the request of: CALVIN GAINES Procedure: CT lung screening low-dose EXAMINATION: CT lung screening low-dose HISTORY: Nicotine Dependence F17.219 COMPARISON: 06/16/2023 from an outside institution TECHNIQUE: Axial, Coronal, and Sagittal images were created without the administration of IV contrast material.Dose reduction techniques were achieved by using automated exposure control and/or adjustment of mA and/or kV according to patient size and/or use of iterative reconstruction technique. FINDINGS: LUNGS: Minimal paraseptal emphysema with an upper lobe predominance. No significant pulmonary nodule or mass PLEURA: No mass, effusion, or pneumothorax. VASCULATURE: No abnormality. CYNDI: No mass or pathologic adenopathy. MEDIASTINUM: No mass or pathologic adenopathy. CARDIAC: No enlargement or pericardial effusion CORONARY ARTERIES: Coronary calcifications are moderate. AORTA: No aortic aneurysm. Mild to moderate atherosclerosis CHEST WALL: No mass or axillary adenopathy BONES: No bone lesion or fracture. LIMITED ABDOMEN: No suspicious findings. Limited images of the upper abdomen. OTHER: Negative. CT/CT lung screening low-dose IMPRESSION: LUNG SCREENING: Lung-RADS Category 1 Negative. No nodules and definitely benign nodules. Continue annual screening with LDCT in 12 months. Electronically authenticated by: ELANA DAVIDSON Date: 05/29/2024 16:02 Dictated By: Leana Davidson M.D. Signed By: 05/29/24 1604 DD/ 1602 TD/TT: Perforator Operator Oil Well: [place] [address] CT Scan Report Signed Patient: LITO MOORE MR#: [id number] : 1965 Acct:[id number] Age/Sex: 58 / F ADM Date: 05/29/24 Loc: CT Attending Dr: Calvin Gaines D.O. Ordering Physician: Calvin Gaines D.O. Date of Service: 05/29/24 Procedure(s): CT remi g screening low-dose Accession Number(s): [id number] cc: Brea Jj NP The [address] [address] Patient Name: SIS MOORE MRN: [id number] date: 1965 Sex: F Assigned Patient Location: CT Current Patient Location: CT Accession/Order Numb er: [id number] Exam Date: 05/29/2024 09:29 Report Date: 05/29/2024 16:02 At the request of: CALVIN GAINES Procedure: CT lung s creening low-dose EXAMINATION: CT lung screening low-dose HISTORY: Nicotine De pendence F17.219 COMPARISON: 3 from an outside institution TECHNIQUE: Axial, Co samir, and Sagittal images were created without the administration of IV contrast material.Dose reduction techniques were achieved by using automated e xposure control and/or adjustment of mA and/or kV according to patient size and/ or use of iterative reconstruction technique. FINDINGS: LUNGS: Minimal eron eptal emphysema with an upper lobe predominance. No significant pulmonar y nodule or mass PLEURA: No mass, eff usion, or pneumothorax. VASCULATURE: No abnormality. CYNDI: No mass or pat hologic adenopathy. MEDIASTINUM: No mass or pathologic adenopathy. CARDIAC: No enlargem ent or pericardial effusion CORONARY ARTERIES: C oronary calcifications are moderate. AORTA: No aortic ane urysm. Mild to moderate atherosclerosis CHEST WALL: No mass or axillary adenopathy BONES: No bone lesio n or fracture. LIMITED ABDOMEN: No suspicious findings. Limited images of the upper abdomen. OTHER: Negative. C T/CT lung screening low-dose IMPRESSION: LUNG SCREENING: Lung -RADS Category 1 Negative. No nodules and definitely benign nodules. Continue an nual screening with LDCT in 12 months. Electronically authe nticated by: LEANA DAVIDSON Date: 05/29/2024 16:02 Dictated By: Leana Davidson M.D. Signed By: 05/29/24 160 DD/ 160 TD/TT: Perforator Operator [employer]: Reason For Referral No Information Medications Medication SIG (Take, Route, Frequency, Duration) Notes Start Date End Date Status Albuterol Sulfate HFA 108 (9 0 Base) MCG/ACT 2 puffs as needed for SOB Inhalation every 4 hrs for 90 days Active Doxepin HCl 10 MG 1 capsule at bedtime Orally Once a day Active Potassium Chloride ER 10 MEQ 1 tablet wi th food Orally Twice a day Active Bevespi Aerosphere 9-4.8 MCG/ACT 2 puffs Inhalation BID for 90 days Active DULoxetine HCl 60 MG 1 capsule Orally On ce a day Active Pramipexole Dihydrochloride 0.5 MG 1 tablet Orally Once a day Active clonazePAM 0.5 MG TAKE 1 TABLET (0.5 M G) BY MOUTH AT BEDTIME Oral for 30 Days Active Lisinopril-hydroCHLOROthiazi d e 20-25 MG 1 tablet Orally Once a day Active Pioglitazone HCl 15 MG 1 tablet Orally O nce a day Active Fluticasone Propionate HFA 110 MCG/ACT 2 puffs Inhalation BID for 90 days Rinse after use 10/09/2024 Active FeroSul 325 (65 Fe) MG TAKE ONE TABLET B Y MOUTH ONCE DAILY Oral for 28 Days Active Theophylline ER 300 mg 1 + 1/2 tablets o ral BID for 90 days Active Fluticasone Propionate 50 MCG/ACT 2 sprays in each nostril Nasally Once a day for 30 days Active Aspirin 81 81 MG 1 tablet Orally Once a day Active Atorvastatin Calcium 40 MG 1 tablet Oral ly Once a day Active Xanax 0.25 MG 1 tablet Orally Twic e a day Active Carafate 1 GM 1 tablet on an empty stomach Orally Twice a day Active LaMICtal 25 MG 1 tablet Orally Active Celecoxib 200 MG TAKE ONE CAPSULE BY MOUTH ONCE DAILY IN THE MORNING Oral for 30 Days Active Lasix 20 MG 1 tablet Orally Once a day Active Gabapentin 300 MG 1 capsule Orally Onc e a day Active busPIRone HCl 15 MG 1 tablet Orally Twic e a day Active Ipratropium-Albuterol 0.5-2. 5 (3) MG/3ML 3mL Inhalation QID for 30 days Active predniSONE 20 MG 3 tabs x 3 days, 2 t abs x 3 days, 1 tab x 3 days Orally Once a day for 9 days 02/19/2025 Active Immunizations Vaccine Route Administration Date Status Comme nts Flu, Unspecified Unknown 07/16/2024 Administered Social History Tobacco Use: Social History Observation Description Date Details (start date - stop date) Former Smoker NA - NA Tobacco Control (Standard) Question Answer Notes Tobacco use: Former smoker How long has it been since you last smoked? Less than 1 month Additional Findings: Tobacco non-user Ex-light c igarette smoker (1-9/day) Problems Problem Type SNOMED Code ICD Code Onset Dates Problem Status W/U Status Risk Notes Problem 500225243 Chronic obstructive pulmonary disease, unspecified (J44.9) Active confirmed Problem 525449885 Obesity, unspecified (E66.9) Active confirmed Problem Chronic respiratory failure (95479578) Chronic respiratory failure with hypoxia (J96.11) Active confirmed Problem Long-term current use of inhaled steroid (983920731) FPC (current) use of inhaled steroids (Z79.51) Active confirmed Problem Pulmonary embolism (31719633) Pulmonary embolism (I26.99) Active confirmed Problem Coronary artery disease (09494495) Coronary artery disease (I25.10) Active confirmed Problem Obstructive sleep apnea (16935762) Obstructive sleep apnea (G47.33) Active confirmed Problem Mental disorder caused by drug (616858706) Cigarette nicotine dependence with nicotine-induced disorder (F17.219) Active confirmed Problem Iron deficiency anemia (34534178) Iron deficiency anemia (D50.9) Active confirmed Problem Type II diabetes mellitus well controlled (649314101) Diabetes mellitus type 2, controlled (E11.9) Active confirmed Problem Paraseptal emphysema (72230053) Paraseptal emphysema (J43.8) Active confirmed Problem 106643298 Encounter for screening for lung cancer (Z12.2) Active confirmed Problem Secondary pulmonary hypertension (94476447) Other secondary pulmonary hypertension (I27.29) Active confirmed Problem History of COVID-19 (878322713360298 105) History of COVID-19 (Z86.16) Active confirmed Vital Signs Heart Rate 93 /min 01/30/2025 Temperature 96.8 degrees Fahrenheit 01/30/2025 Respiratory Rate 20 /min 01/30/2025 Oximetry 94 % 01/30/2025 Blood pressure diastolic 73 mm Hg 01/30/2025 Height 69 in 01/30/2025 Blood pressure systolic 145 mm Hg 01/30/2025 Weight 258.4 lbs 01/30/2025 BMI 38.15 kg/m2 01/30/2025 Procedures Procedure Date Ordered Date Performed Result Body Sit e Six minute walk 01/30/2025 02/15/2025 N/A Encounters Encounter Location Date Provider Diagnosis [facility] [address] [place] [address] 05/30/2024 [facility] [address] [place] [address] 10/09/2024 [facility] Paraseptal emphysema J43.8 [facility] [address] [place] [address] 01/21/2025 [facility] [place] [facility] [address] [place] [address] 02/19/2025 Calvin [facility] Chronic obstructive pulmonary disease with (acute) exacerbation J44.1 [facility] [address] [place] [address] 08/01/2024 Calvin [facility] Chronic respiratory failure with hypoxia J96.11 ; Paraseptal emphysema J43.8 ; Cigarette nicotine dependence with nicotine-induced disorder F17.219 ; Encounter for screening for malignant neoplasm of respiratory organs Z12.2 ; Pulmonary embolism I26.99 ; Obstructive sleep apnea G47.33 ; Diabetes mellitus type 2, controlled E11.9 ; Encounter for therapeutic drug level monitoring Z51.81 ; intermediate frame tender (current) use of inhaled steroids Z79.51 and Obesity, unspecified E66.9 Pulmonary [facility] [address] [place] [address] 01/30/2025 Calvin [facility] Chronic respiratory failure with hypoxia J96.11 ; Paraseptal emphysema J43.8 ; Cigarette nicotine dependence with nicotine-induced disorder F17.219 ; Pulmonary embolism I26.99 ; Obstructive sleep apnea G47.33 ; Diabetes mellitus type 2, controlled E11.9 ; FPC (current) use of inhaled steroids Z79.51 and Obesity, unspecified E66.9 Assessments Encounter Date Diagnosis (ICD Code) Assessment Notes Treatment Notes Treatment Clinical Notes Section Notes 08/01/2024 Chronic respiratory failure with hypoxia (ICD-10 - J96.11) Aljg-rw-oblw encounter performed with the patient to document continued need for supplemental oxygen (O2). -Qualifying data: 02/01/2024 --SpO2 with activity on RA: 85% --SpO2 @ rest on RA: 88% -Flow & directions: Previously was 3L/min O2 @ rest and 5L/min with activity, but she has been able to wean down her oxygen to none at rest and 2L/min with activity.-Patient voices adherence to recommended usage: Yes-Symptom control on O2: Relieft of dyspnea-Counseled patient not begin, restart, or continue smoking, [...] that led to the point of requiring O2.-Recommendations : Patient is doing well on oxygen therapy. Continue it for now. 08/01/2024 Paraseptal emphysema (ICD-10 - J43.8) Patient continues to voice a good response to Flovent + Bevespi. It has been over a year since she last had an exacerbation of COPD. She is not requiring any rescue bronchodilators. Continue theophylline as level was therapeutic; if she stops smoking, the level can increase to smoking induces theophylline's metabolism-when that happens, will recheck it. Patient was encouraged to stop smoking -discussed with patient that LDCT is beginning to show evidence of mild paraseptal emphysema. Follow-up 6 months. 01/30/2025 Chronic respiratory failure with hypoxia (ICD-10 - J96.11) Xnce-er-pcnm encounter performed with the patient to document [...] that led to the point of requiring O2.-Recommendations : She continues to have benefit from supplemental O2. In anticipation for renewal of O2, ordering 6-minute walk to requalify the patient. 10/09/2024 Paraseptal emphysema (ICD-10 - J43.8) 02/19/2025 Chronic obstructive pulmonary disease with (acute) exacerbation (ICD-10 - J44.1) 01/30/2025 Paraseptal emphysema (ICD-10 - J43.8) It [...] return in 6 months for longitudinal evaluation. Bvfj-av-kegf encounter performed with the patient to document continued need for a nebulizer with nebulized medications. -Current nebulized medications: DuoNeb -Symptom control: Assists in control when Flovent + Bevespi are not enough, especially during weather changes -Reported side or adverse effects: None -Recommendations: Continue DuoNeb with nebulizer. Refill nebulizer and nebulizer supplies as necessary. 01/30/2025 Cigarette nicotine dependence with nicotine-induced disorder (ICD-10 - F17.219) Patient quit smoking 2 days ago. This is her third attempt. Counseled patient to not be upset over the relapse; smoking/nicotine is extremely addictive and it can take multiple attempts for someone to quit smoking. I offered her encouragement on her smoking cessation journey. LDCT 05/29/2024 RADS-1. 1 year LDCT is due end of April 2025. 08/01/2024 Cigarette nicotine dependence with nicotine-induced disorder (ICD-10 - F17.219) Patient continues to smoke. She is counseled to stop, which she acknowledged. LDCT 05/29/2024 RADS-1. F/U LDCT 1 year. 08/01/2024 Encounter for screening for malignant neoplasm of respiratory organs (ICD-10 - Z12.2) Low-dose CT (LDCT) was recommended for lung cancer screening. The patient meets criteria including age 50-77, a smoking history of at least 20 pack-years, is currently smoking or has ceased smoking within the past 15 years, and has no signs or symptoms of lung cancer. Shared decision making performed with the patient. After LDCT has been completed, will review report and/or imaging and provide appropriate recommendations for the patient, including additional follow up if needed. Patient was counseled on smoking cessation/continued tobacco abstinence. LDCT due 04/2025. 01/30/2025 Pulmonary embolism (ICD-10 - I26.99) Unprovoked pulmonary emboli identified on CTA 06/16/2023 - Hypercoaguable w/up was negative. F/U with hematology. 01/30/2025 Obstructive sleep apnea (ICD-10 - G47.33) Managed by Dr. Khan. 08/01/2024 Pulmonary embolism (ICD-10 - I26.99) Unprovoked pulmonary emboli identified on CTA 06/16/2023 - Hypercoaguable w/up was negative. F/U with hematology. 08/01/2024 Obstructive sleep apnea (ICD-10 - G47.33) Managed by Dr. Khan. 01/30/2025 Diabetes mellitus type 2, controlled (ICD-10 - E11.9) Steroids prescribed for this patient's underlying pulmonary disease can adversely affect blood glucose levels, inducing hyperglycemia and worsening underlying diabetes. The patient is encouraged to follow up with the primary care provider to create a plan to manage diabetes in this situation. 01/30/2025 intermediate frame tender (current) use of inhaled steroids (ICD-10 - Z79.51) Patient was counseled to rinse & gargle with water after inhaled corticosteroid use. 08/01/2024 Diabetes mellitus type 2, controlled (ICD-10 - E11.9) Steroids prescribed for this patient's underlying pulmonary disease can adversely affect blood glucose levels, inducing hyperglycemia and worsening underlying diabetes. The patient is encouraged to follow up with the primary care provider to create a plan to manage diabetes in this situation. 08/01/2024 Encounter for therapeutic drug level monitoring (ICD-10 - Z51.81) Theophylline level was in therapeutic range @ 11.3. 01/30/2025 Obesity, unspecified (ICD-10 - E66.9) Patient's weight is inducing a restrictive pulmonary physiology. Weight loss indicated: Decrease calories, increase activity. 08/01/2024 FPC (current) use of inhaled steroids (ICD-10 - Z79.51) Patient was counseled to rinse & gargle with water after inhaled corticosteroid use. 08/01/2024 Obesity, unspecified (ICD-10 - E66.9) Patient's weight is inducing a restrictive pulmonary physiology. Weight loss indicated: Decrease calories, increase activity. 01/30/2025 Other Plan Of Treatment Next Appt Details Provider Name:Calvin Gaines, 07/31/2025 08:30:00 AM, [address] [place], [address], Insurance Providers Payer Name Payer Address Payer Phone Subscriber Number Group Number Insured Name Patient Relationship to Insured Coverage Start Date Coverage End Date [employer] [place] [employer] [address] [place] [address] [id number] Sis Moore Self - patient is the insured 3 Medical (General) History Medical History History ICD Code Paraseptal emphysema J43.8 Chronic respiratory failure with hypoxia J96.11 intermediate frame tender (current) use of inhaled stero ids Z79.51 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 Generalized anxiety disorder F41.1 Depression F32.A Coronary artery disease I25.10 Essential Hypertension I10 Hyperlipidemia E78.5 Gastroesophageal reflux disease K21.9 Obstructive sleep apnea G47.33 Osteoarthritis M19.90 History of COVID-19 Z86.16 Restless leg syndrome G25.81 Other secondary pulmonary hypertension I 27.29 Diabetes mellitus type 2, controlled E11 .9 Pulmonary embolism I26.99 Adrenal adenoma, right D35.01 Adrenal adenoma, left D35.02 Cigarette nicotine dependence with nicot ine-induced disorder F17.219 Iron deficiency anemia D50.9 Surgical History Surgery Date(Month/Year) arthroscopic knee surgery-left section tubal ligation Cardiac Catheterization 06/15/2021 Right Foot Surgery Hospitalization History Reason Date(Month/Year) Pulmonary embolism 06/16/2023
--- OUTSIDE RECORDS SUMMARY | 2025-04-17 09:48 | XMS_ITS | Clinical Summary ---
Author Organization [facility] Address [address] [place] [address] Care Team Providers Care Emergency Department Nurse Name Role Phone Brea Jj CONSUMER STUDIES PROFESSOR Unavailable [phone] Jose M Light MD Primary Care Provider [phone] Brea Jj CONSUMER STUDIES PROFESSOR Unavailable [phone] Allergies No known active allergies Medications Ventolin HFA 108 (90 Base) MCG/ACT inhaler INHALE 2 PUFFS BY MOUTH FOR SHOTNESS OF BREATH EVERY 4 HOURS NEEDED Active Flovent HFA 110 MCG/ACT inhaler Inhale 2 puffs in the morning and 2 puffs before bedtime. Active OneTouch Ultra test strip USE ONCE DAILY DIRECTED 023 Active Bevespi Aerosphere 9-4.8 MCG/ACT aerosol Inhale 2 puffs in the morning and 2 puffs before bedtime. Active ipratropium-albut troy (Duo-Neb) 0.5-2.5 mg/3 mL nebulizer solution INHALE 3ML FOUR TIMES A DAY Active theophylline ER (Franki-Dur) 300 MG 12 hr tablet TAKE 1 12 TABLETS BY MOUTH EVERY 12 HOURS 023 Active ondansetron ODT (Zofran-ODT) 4 MG disintegrating tablet Take 4 mg by mouth every 8 (eight) hours if needed for nausea or vomiting 024 Active Aspirin Low Dose 81 MG EC tablet Take 81 mg by mouth Daily 025 Active fluocinonide (Lidex) 0.05 % creamIndications: Other atopic dermatitis Apply thin layer (1 g) to lower legs, up to twice a day when flared, do not use one the face, groin, or underarms, 30 day supply 80 g 11 Active DULoxetine (Cymbalta) [address] capsuleIndication s:Anxiety and depression Take 1 capsule (60 mg) by mouth Daily 30 capsule 5 Active predniSONE (Deltasone) 20 MG tablet TAKE THREE TABLETS BY MOUTH DAILY FOR 3 DAYS,THEN 2 TABS FOR 3 DAYS, THEN 1 TAB FOR 3 DAYS. Active guaiFENesin-codei ne (Robitussin-AC) 100-10 MG/5ML syrup TAKE 2 TEASPOONSFUL (10ML) BY MOUTH EVERY 6 HOURS NEEDED Active guaiFENesin (Mucinex) 600 MG 12 hr tablet TAKE ONE TABLET BY MOUTH TWICE A DAY NEEDED FOR CONGESTION Active FeroSul 325 (65 Fe) MG tablet Take 325 mg by mouth in the morning. Take with meals. Active dicyclomine (Bentyl) 20 MG tablet See Instructions, when needed, Refills(s) 0 Active celecoxib (CeleBREX) 200 MG capsule Take 200 mg by mouth Daily Active benzonatate (Tessalon) 100 MG capsule Take 100 mg by mouth 3 (three) times a day as needed for cough Active atorvastatin (Lipitor) 40 MG tabletIndications :Mixed hyperlipidemia Take 1 tablet (40 mg) by mouth at bedtime 30 tablet Active busPIRone (Buspar) 15 MG tabletIndications :Anxiety and depression Take 1 tablet (15 mg) by mouth in the morning and 1 tablet (15 mg) before bedtime. 60 tablet Active furosemide (Lasix) 20 MG tabletIndications :Edema of both lower extremities Take 1 tablet (20 mg) by mouth Daily 30 tablet Active gabapentin (Neurontin) 300 MG capsuleIndication s:Restless leg syndrome Take 1 capsule (300 mg) by mouth Daily 30 capsule Active lisinopril-hydroC HLOROthiazide 20-25 MG tabletIndications :Primary hypertension Take 1 tablet by mouth Daily 30 tablet Active pantoprazole (ProtoNix) 40 MG EC tabletIndications :Gastroesophageal reflux disease without esophagitis Take 1 tablet (40 mg) by mouth in the morning. Take before meals. Do not crush, chew, or split. 30 tablet 5 Active pioglitazone (Actos) 15 MG tabletIndications :Type 2 diabetes mellitus without complication, without long-term current use of insulin (HCC) Take 1 tablet (15 mg) by mouth Daily 30 tablet Active pramipexole (Mirapex) 0.5 MG tabletIndications :Restless leg syndrome Take 1 tablet (0.5 mg) by mouth at bedtime 30 tablet 5 025 Active lamoTRIgine (LaMICtal) 25 MG tabletIndications :Anxiety and depression Take 2 tablets (50 mg) by mouth at bedtime 60 tablet 025 Active clonazePAM (KlonoPIN) 0.5 MG tabletIndications :Anxiety and depression,Restle ss leg syndrome,Other insomnia Take 1 tablet (0.5 mg) by mouth at bedtime 30 tablet 2 Active Multiple Vitamin (Multivitamin) tabletIndications :Vitamin deficiency Take 1 tablet by mouth Daily 30 tablet 5 025 2024 Active Multiple Vitamin (Multivitamin) tablet 025 2024 Discontinued potassium chloride CR (Klor-Con) 10 MEQ ER tabletIndications :Edema of both lower extremities Take 1 tablet (10 mEq) by mouth Daily 30 tablet 5 025 2024 Calcium Carb-Cholecalcife rol 600-5 MG-MCG tabletIndications :Osteopenia after menopause Take 1 tablet by mouth in the morning and 1 tablet before bedtime. 60 tablet 025 2024 Active Problems Problem Noted Date Diagnosed Date Encounter for wellness examination in adult 01/30 Assessment & Plan (02/25/2025 10:30 AM EDT): Reviewed Ht/Wt/BMI Recommend eye exam yearly Recommend dental exams twice a year Exercises is recommended most days of the week (appropriate as chronic conditions allow) Follow up yearly and prn COPD exacerbation 02/25/2025 Assessment & Plan (02/25/2025 10:31 AM EDT): In Er 02/21/25 Currently on meds for this If worsening in symptoms please call dr avendano's office If severe sxs go to ER Centrilobular emphysema 12/26/2024 Assessment & Plan (12/26/2024 6:39 AM EST): Continues with pulmonary Samsa Cont current inhalers Occult blood positive stool 12/25/2024 Assessment & Plan (12/26/2024 6:43 AM EST): Neg cultures +stool for OB Referred to GI Nausea & vomiting 12/03/2024 Assessment & Plan (12/03/2024 9:41 AM EST): Has zofran for prn Check labs Irritable bowel syndrome with diarrhea Assessment & Plan (12/26/2024 10:25 AM EST): Stool sample results reviewed I have referred her to GI in [place] Will trial Xifaxin for for IBS-D Has failed: immmodium, pepto Sxs could also be gallbladder related as well #3 samples: lot: [id number] exp 04/26 Assessment & Plan (12/03/2024 9:42 AM EST): Check sample Check labs ??IBS Fu in 3 weeks Weight loss, unintentional 12/03/2024 Rash 10/29/2024 Assessment & Plan (12/03/2024 9:21 AM EST): Present for a few months, primarily itchiness At last visit ordered kenalog cream, trial steroid cream Rash is not any better Assessment & Plan (10/29/2024 6:33 PM EST): Present for a month, primarily itchiness Will trial steroid cream, bid for 14 days, pt to call office if she still has rash Could just be extra dry and irritated from the itch/scratch cycle ?eczema? Gastroenteritis 10/29/2024 Assessment & Plan (10/29/2024 6:32 PM EST): Was in the ER on 10/27/24, see notes, was given IV fluids Resolved at this time JONNY (iron deficiency anemia) 10/29/2024 Assessment & Plan (02/25/2025 6:40 AM EDT): Current med: ferrous sulfate Check labs periodically, also with dose changes or changes in sxs History of pulmonary embolism 07/24/2024 Chronic respiratory failure with hypoxia 024 Assessment & Plan (12/26/2024 6:40 AM EST): Has oxygen therapy Continue inhalers Follows with Dr Avendano Assessment & Plan (12/03/2024 6:09 AM EST): Has oxygen therapy Continue inhalers Follows with Dr Avendano Assessment & Plan (05/23/2024 10:14 AM EDT): Wears oxygen and Continue w pulmonology Atherosclerosis of aorta 05/23/2024 Assessment & Plan (05/23/2024 6:54 AM EDT): Cont statin Other fatigue 05/23/2024 Assessment & Plan (05/23/2024 10:18 AM EDT): D/w pt multi factoral, such as depression/anxiety/, vit def, untreated ROLANDO Check labs Gastroesophageal reflux disease without esophagi tis 05/23/2024 Assessment & Plan (02/25/2025 6:39 AM EDT): Recommendations: freq small meals, nothing to eat or drink at least 2 hours prior to bed, limit caffeine, alcohol, as well as spicy foods Meds to limit or avoid if possible: NSAIDS Elevate HOB if possible Current meds: PPI Assessment & Plan (12/26/2024 6:43 AM EST): Last appt started Pantoprazole Assessment & Plan (05/23/2024 10:19 AM EDT): Will have her stop OTC omeprazole and we will trial pantoprazole Fu in 6 -8 weeks Vitamin deficiency 04/10/2024 Osteopenia after menopause 03/08/2024 Encounter for screening mamm ogram for malignant neoplasm of breast 02/21/2024 Arthritis 12/05/2023 Other pulmonary embolism without acute cor pulmo nale 12/05/2023 Body mass index (BMI) 37.0-37.9, adult Other insomnia 10/19/2023 Assessment & Plan (01/10/2024 10:46 AM EDT): Wean off TCA 1/2 pill every other day for 7 days, then 1/2 pill every 3rd day for 7 days then stop Trial klonopin as well Assessment & Plan (12/05/2023 9:40 AM EST): Wean off TCA 1/2 pill every other day for 7 days, then 1/2 pill every 3rd day for 7 days then stop Trial klonopin as well Assessment & Plan (10/19/2023 10:25 AM EST): We will trial an increase in her elavil to 50 mg at HS Fu in 6 weeks Recommend wearing PAP as well as this also is contributing to her sleep issues Class 2 severe obesity due t o excess calories with serious comorbidity in adult 10/19/2023 Assessment & Plan (12/26/2024 6:43 AM EST): Discussed with patient their BMI (actual, verses recommended). We have also discussed lifestyle modifications: attempts to perform physical activity as chronic conditions allow, also to monitor dietary intake: increasing protein/fruits/veggies and lowering carb intake (unless contraindicated). Limit sodas, juices, and sugary drinks. Assessment & Plan (12/03/2024 6:09 AM EST): Discussed with patient their BMI (actual, verses recommended). We have also discussed lifestyle modifications: attempts to perform physical activity as chronic conditions allow, also to monitor dietary intake: increasing protein/fruits/veggies and lowering carb intake (unless contraindicated). Limit sodas, juices, and sugary drinks. Assessment & Plan (10/29/2024 7:41 AM EST): Discussed with patient their BMI (actual, verses recommended). We have also discussed lifestyle modifications: attempts to perform physical activity as chronic conditions allow, also to monitor dietary intake: increasing protein/fruits/veggies and lowering carb intake (unless contraindicated). Limit sodas, juices, and sugary drinks. Type 2 diabetes mellitus wit hout complication, without long-term current use of insulin 10/19/2023 Assessment & Plan (02/25/2025 10:27 AM EDT): Check blood sugars daily, notify if <70 [...] Current meds: asa, statin, yusuf/hydrochlorothiazide, pioglitazone A1c 6.1% 02/25/25 Assessment & Plan (10/29/2024 6:32 PM EST): Check blood sugars daily, notify if <70 [...] meds: asa, statin, yusuf/hydrochlorothiazide, pioglitazone A1c 5.9% Assessment & Plan (05/23/2024 10:17 AM EDT): Not due for labs at this time as far as A1c No med dose changes Assessment & Plan (10/19/2023 9:25 AM EST): Check blood sugars daily, notify if <70 [...] diet low in carbohydrates, and simple sugars. Check A1c test ROLANDO (obstructive sleep apnea) 10/19/2023 Assessment & Plan (10/29/2024 7:41 AM EST): You have a diagnosis of obstructive sleep apnea. It is recommended that you wear your PAP device any time while in bed sleeping. Not using the PAP device can increase your risk of elevated/uncontrolled high blood pressure, atrial fibrillation, heart attack, stroke, or sudden . Assessment & Plan (12/05/2023 9:41 AM EST): Stressed importance of PAP Assessment & Plan (10/19/2023 10:29 AM EST): Is non compliant with use of PAP Recommend using this nightly as it would help with sleep, shortness of breath as well Restless leg syndrome 10/12/2023 Assessment & Plan (07/24/2024 9:57 AM EDT): No med dose changes Assessment & Plan (05/23/2024 10:14 AM EDT): Continue current meds Assessment & Plan (01/10/2024 10:46 AM EDT): Will see if addition of klonopin helps with this as well Assessment & Plan (12/05/2023 9:40 AM EST): Will see if addition of klonopin helps with this as well Anxiety and depression 10/12/2023 Overview (12/03/2024): 12/03/24: GAYLE 7=4, PHQ 9=5 Assessment & Plan (02/25/2025 10:32 AM EDT): At last visit discussed a referral to counseling Stressors with her health and husbands health as well Current meds: buspar, klonopin prn, duloxetine, lamotrigine in hospital with critical low blood count She is worried about them Assessment & Plan (12/26/2024 10:23 AM EST): No med dose changes, would like counseling Refer to [facility] Assessment & Plan (12/03/2024 9:21 AM EST): Many life stressors with her health, and her 's declining health as well Current meds: buspar, klonopin, and duloxetine OARRS reviewed GAYLE 7=4 PHQ 9=5 Assessment & Plan (07/24/2024 9:58 AM EDT): Continue current meds as well as klonopin OARRS reviewed Assessment & Plan (01/10/2024 10:46 AM EDT): Stop xanax, will trial klonopin Cont lamictal, duloxetine and buspar Assessment & Plan (12/05/2023 9:41 AM EST): Stop xanax, will trial klonopin Cont lamictal, duloxetine and buspar Assessment & Plan (10/19/2023 10:38 AM EST): Is doing fairly well on current meds, no changes She and spouse have moved out of her daughters house as of last week, no living in [place], much less stress Essential (primary) hypertension 10/12/2023 Assessment & Plan (02/25/2025 6:38 AM EDT): Please check blood pressure daily and record DASH diet Limit caffeine Take medication as directed Contact office if chest pain, pressure, dizziness, shortness of breath, swelling legs Recommend slow position changes Current med: lisinopril/hydrochlorothiazide Assessment & Plan (12/26/2024 6:40 AM EST): Please check blood pressure daily and record DASH diet Limit caffeine Take medication as directed Contact office if chest pain, pressure, dizziness, shortness of breath, swelling legs Recommend slow position changes Current med: lisinopril/hydrochlorothiazide Assessment & Plan (12/03/2024 6:09 AM EST): Please check blood pressure daily and record DASH diet Limit caffeine Take medication as directed Contact office if chest pain, pressure, dizziness, shortness of breath, swelling legs Recommend slow position changes Current med: lisinopril/hydrochlorothiazide, Assessment & Plan (10/29/2024 7:40 AM EST): Please check blood pressure daily and record DASH diet Limit caffeine Take medication as directed Contact office if chest pain, pressure, dizziness, shortness of breath, swelling legs Recommend slow position changes Current med: lisinopril/hydrochlorothiazide, Assessment & Plan (05/23/2024 10:17 AM EDT): No med dose changes Mixed hyperlipidemia 10/12/2023 Tobacco dependence syndrome 12/24/2022 Overview (12/05/2023): Last Assessment & Plan: Provider had extended 10 min discussion again with patient about smoking cessation, at this time she doesn't want to take any further medication or that she is ready to quit smoking at this time. Assessment & Plan (12/26/2024 6:43 AM EST): The patient has been advised of the risks of continued smoking: stroke, DE, all forms of cancer, lung disease, and . Options for quitting smoking include: cold turkey, hypnosis, acupuncture, nicotine replacement meds (gum, lozenges, and patches), Buproprion, and Varenicline. At this time pt is encouraged to evaluate their goals for wanting to quit smoking, and reach out to provider when ready to start this process WOODY (dyspnea on exertion) 12/24/2022 Overview (12/05/2023): female presents to clinic for f/u for HTN, myocardial bridge of LAD, COPD, dsypnea. CUrrently states she is feeling well, denied chest pain, reports typical shortness of breath with exertion- on oxygen 23/05, denied orthopnea. Last Assessment & Plan: Stable, f/u with Dr Avendano Edema of both lower extremities 12/24/2022 Overview (12/05/2023): Last Assessment & Plan: Currently well controlled with lasix Assessment & Plan (10/29/2024 7:41 AM EST): Takes lasix prn COPD mixed type 12/24/2022 Assessment & Plan (05/23/2024 10:14 AM EDT): Continue with pulmonology Assessment & Plan (12/05/2023 9:06 AM EST): Continue with pulmonology Recommend Pneuomovax Resolved Problems Problem Noted Date Diagnosed Date Resolved Date Morbid (severe) obesity due to excess calories 05/23/2024 12/03/2024 Breast pain, left 02/21/2024 07/24/2024 Assessment & Plan (02/21/2024 9:44 AM EDT): Normal breast exam, denies any skin changes, or palpable mass, No abnormal on BSE. Due for mammogram in 03/2024 Acute non-recurrent maxillary sinusitis 01/10/2024 07/24/2024 Assessment & Plan (01/10/2024 10:48 AM EDT): Fluids, rest Finished atb Right upper quadrant abdominal pain 01/10/2024 07/24/2024 Assessment & Plan (05/23/2024 10:14 AM EDT): Monitor at this time Intermittent doing ok at this time Assessment & Plan (01/10/2024 10:48 AM EDT): Will review ER notes Encounters Date Type Department Care Team Description 04/04/2025 Refill [facility] [address] [place] [phone] Brea Jj NP Vitamin deficiency (Primary Dx) 03/06/2025 Refill [facility] [address] [place] [phone] Brea Jj NP Osteopenia after menopause (Primary Dx) 02/25/2025 9:40 AM EDT Office Visit [facility] [address] [place] [phone] Brea Jj NP Encounter for wellness examination in adult (Primary Dx); Essential (primary) hypertension ; Gastroesophageal reflux disease without esophagitis; Type 2 diabetes mellitus without complication, without long-term current use of insulin (HCC); Iron deficiency anemia, unspecified iron deficiency anemia type; Anxiety and depression ; Mixed hyperlipidemia ; Edema of both lower extremities; Restless leg syndrome; Primary hypertension ; Other insomnia; COPD exacerbation (HCC) 02/25/2025 Patient Outreach [facility] [address] [place] [phone] [place] 02/25/2025 [facility]amboo [facility] [address] [place] [phone] Brea Jj NP 02/06/2025 Refill [facility] [address] [place] [phone] Brea Jj NP Edema of both lower extremities (Primary Dx) 02/04/2025 Telephone [facility] [address] [place] [phone] Brea Jj NP 01/28/2025 Refill [facility] [address] [place] [phone] Brea Jj NP Anxiety and depression from Last 3 Months Immunizations Immunization Administration Dates Next Due Influenza, High Dose Seasonal, Preservative Free 07/01/2020 Influenza, Seasonal, Quadrivalent, Adjuvanted Influenza, Unspecified 08/13/2024 Influenza, injectable, quadrivalent 08/09/2022,0 07/18/2020 Influenza, seasonal, injectable 07/16/2024 Family History Medical History Relation Name Comments Heart disease Father COPD Mother Melanoma Neg Hx Relation Name Status Comments Father Maternal Grandfather Maternal Grandmother Mother Paternal Grandfather Paternal Grandmother Social History Tobacco Use Types Packs/Day Years Used Date Smoking Tobacco: Former Cigarettes Smokeless Tobacco: Never Tobacco Cessation:Counseling Given: Not Answered Comments:11-20 cigarettes/day Alcohol Use Standard Drinks/Week Comments Never 0 [...] Orientation Straight 04/20/2023 11 :58 AM EDT Last Filed Vital Signs Vital Sign Reading Time Taken Comments Blood Pressure 100/68 02/25/2025 9:57 AM EDT Pulse 93 02/25/2025 9:57 AM EDT Temperature 36.7 C (98.1 F) 02/25/2025 9:57 AM EDT Respiratory Rate 20 02/25/2025 9:57 AM EDT Oxygen Saturation 92% 02/25/2025 9:57 AM EDT Inhaled Oxygen Concentration - - Weight 115 kg (253 lb 3.2 oz) 02/25/2025 9:57 AM EDT Height 175.3 cm (5' 9 ) 12/26/2024 9:46 AM EST Body Mass Index 37.39 12/26/2024 9:46 AM EST Plan of Treatment Upcoming Encounters Date Type Department Care Team (Late st Contact Info) Description 05/28/2025 9:00 AM EDT Office Visit [facility] [address] [place] [address] Brea Jj, TOBIAS [address] [place] [address] Health Maintenance Due Date Last Done Comments CT Colonography 1965 FIT-DNA 1965 FIT 1965 FOBT 1965 Sigmoidoscopy 1965 Pap Smear 1985 Diabetes: Urine Protein Screening 03/15/2025 024, 04/14/2023 Mammogram 04/16/2025 04/16/2024, 04/14/2023 Diabetes: Hemoglobin A1C 08/27/2025 025, 10/29/2024, 10/29/2024, Additional history exists Diabetes: Retinopathy Screening 01/01/2027 , 01/29/2023 Cervical Cancer Screening 06/23/2028 HPV/Cotest 06/23/2028 06/23/2023 Colonoscopy 03/31/2030 03/31/2020 Colorectal Cancer Screening 03/31/2030 Influenza Vaccine Completed 08/13/2024, , 08/12/2023, Additional history exists Procedures Procedure Name Priority Date/Time Associated Diagnosis Comments POCT GLYCOSYLATED HEMOGLOBIN (HGB A1C) Routine 02/25/2025 10:08 AM EDT Type 2 diabetes mellitus without complication, without long-term current use of insulin (HCC) MM TOMOSYNTHESIS SCREENING BI 04/16/2024 3:04 PM EDT THINPREP PAP AND HPV MRNA E6/E7 W/RFL HPV 16,18/45 Routine 06/23/2023 10:28 AM EDT Screening for cervical cancer Encounter for gynecological examination without abnormal finding from Last 3 Months or Most Recently Relevant to Health Maintenance Results * (ABNORMAL) POCT glycosylated hemoglobin (Hb A1C) docked device (02/25/2025 10:08 AM EDT) Hemoglobin A1C 6.1 Blood Venous blood specimen / Unknown 02/25/2025 10:08 AM EDT Brea Jj NP POINT OF CARE TEST ENTER/EDIT O RDERABLES Final Result * MM TOMOSYNTHESIS SCREENING BI (04/16/2024 3:04 PM EDT) Anatomical Region Laterality Modality Other 04/16/2024 3:04 PM EDT Narrative 04/16/2024 3:05 [place] [address] Mammography Report Signed Patient: SIS MOORE MR#: [id number] : 1965 Acct:[id number] Age/Sex: 58 / F ADM Date: 04/16/24 Loc: MAMMO Attending Dr: Brea Jj NP Ordering Physician: Brea Jj NP Results: Date of Service: 04/16/24 Follow Up: Procedure(s): MM tomosynthesis screening BI Accession Number(s): [id number] cc: Brea Jj NP Patient Name: SIS MOORE MR#: [id number] : 1965 Exam Date: 04/16/2024 Ordering Doctor: [...] Treatments None Family Cancers None LOCATION: [facility] BREAST COMPOSITION: The breasts are almost entirely [...] Signed By: 04/16/24 1505 DD/ 1504 TD/TT: 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: Procedure Note Radiology, Radiologist, MD - 04/16/2024 [place] [address] Mammography Report Signed Patient: SIS MOORE JMR#: [id number] : 1965Acct:[id number] Age/Sex: 58 / FADM Date: 04/16/24 Loc: MAMMO Attending Dr: Brea Jj NP Ordering Physician: Brea Jj NPResults: Date of Service: 04/16/24Follow Up: Procedure(s): MM tomosynthesis screening BI Accession Number(s): [id number] cc: Brea Jj NP Patient Name: SIS MOORE MR#: [id number] : 1965 Exam Date: 04/16/2024 Ordering Doctor: ENRIQUE Jj CNP RADIOLOGY REPORT PROCEDURE: MM TOMOSYNTHESIS SCREENING BI COMPARISON: MM TOMOSYNTHESIS SCREENING BI, 04/14/2023. MG MAMM [id number] EMY CAD, 04/30/2022. MG MAMM SCREEN 3D EMY CAD, 04/29/2021. MG MAMM BILSCRN W CAD DIG, 09/05/2007. INDICATIONS: Screening Calculator Name NCI Breast Cancer Risk Assessment Tool 5 Year Breast Cancer Risk 0.90% Lifetime Breast Cancer Risk 5.00% Personal Breast Cancer No Personal Ovarian Cancer No Treatments None Family Cancers None LOCATION: [facility] BREAST COMPOSITION: The breasts are almost entirely [...] M.D. Signed By:04/16/24 1505 DD/ 1504 TD/TT: 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: us Brea Jj NP [facility] Final Result * THINPREP PAP AND HPV MRNA E6/E7 W/RFL HPV 16,18/45 (06/23/2023 10:28 AM EDT) CLINICAL INFORMATION [facility] Comment:None given LMP [facility] Comment:None given PREV. PAP [facility] Comment:None given PREV. BX [facility] Comment:None given SOURCE [facility] Comment:None given STATEMENT OF ADEQUACY [facility] Comment:SATISFACTORY FOR BATOOL LUATION INTERPRETATION/RESU LT [facility] Comment: Cytology Results: Negative for intraepithelial lesion or malignancy. Atrophic pattern; predominantly parabasal cells COMMENT [facility] Comment: Parabasal cells in smears that lack maturation due to atrophy or other hormonal reasons cannot be differentiated from transformation zone cells. Accordingly, presence or absence of endocervical or transformation zone components cannot be reported in this patient. FOLDER HAND [facility] Comment: COLE BRAVO(ASCP) CT screening location: [facility] [place], [address] [place] [address], [place] [address]. (ALWAYS MESSAGE) [facility] Comment: EXPLANATORY NOTE: The Pap is a screening test for cervical cancer. It is not a diagnostic test and is subject to false negative and false positive results. It is most reliable when a satisfactory sample, regularly obtained, is submitted with relevant clinical findings and history, and when the Pap result is evaluated along with historic and current clinical information. HPV MRNA E6/E7 Not Detected Not Detected [facility]ST Comment: Methodology: Airport Planner-Mediated Amplification This assay detects E6/E7 viral messenger RNA (mRNA) from 14 high-risk HPV types (16,18,31,33,35,39,45,51,52,56,58,59,66,68). Cervical sources are required for HPV testing. If a vaginal source from a patient who has had a total hysterectomy with removal of cervix was submitted, please contact the testing laboratory for alternative testing options. For additional information, please refer to http://education.[employer]/faq/JHD150i3 (This link if provided for information/ educational purposes only.) Other 06/23/2023 10:2 8 AM EDT 06/24/2023 4:13 AM EDT Narrative Resulting Agency Comment Performing Organization Information Site ID: [id number] Name: [facility] Address: [address] [place] [address], [address] [place] [phone] Director: Zaki Prasad MD Yessica Kline NP LAB BLOOD ORDERABLES Nataliya sorensen Result [facility] from Last 3 Months or Most Recently Relevant to Health Maintenance [place] [address] [employer] Care Teams Emergency Department Nurse Relationship Specialty Start Date End Date Jose M Light MD [address] [place] [phone] PCP - General Family [facility] 10/18/23 Brea Jj NP [address] [place] [phone] PCP - [facility] 07/31/24 Brea Jj NP [address] [place] [phone] Nurse Practitioner Family [facility] 10/18/23
--- OUTSIDE RECORDS SUMMARY | 2025-04-17 09:48 | XMS_ITS | Encounter Summary ---
Author Organization [facility] Address [address] [place] [address] Care Team Providers Care Sexual Abuse Counsellor Name Role Phone Brea Jj MD Primary Care Provider [phone] Reason for Visit * Reason Comments Med Refill Encounter Details Date Type Department Care Team (Late st Contact Info) Description 10/12/2023 Refill [facility] [address] [place] [phone] Marlene Soto MD [address] [facility] [address] [facility] [place] [phone] Benign essential HTN; Coronary-myocardial bridge; Edema of [...] on file documented as of this encounter Plan of Treatment Not on file documented as of this encounter Visit Diagnoses Diagnosis Benign essential HTN Coronary-myocardial bridge Edema of both lower extremities documented in this encounter Care Teams Sexual Abuse Counsellor Relationship Specialty Start Date End Date Brea Jj MD [address] [place] [address] PCP - General 12/24/22 documented as of this encounter
--- OUTSIDE RECORDS SUMMARY | 2025-04-17 09:48 | XMS_ITS | Encounter Summary ---
Author Organization [facility] Address [address] [facility] [place] [address] Care Team Providers Care Sprinkling System Irrigator Name Role Phone Brea Jj COMMERCIAL LENDING RELATIONSHIP MANAGER Unavailable [phone] Jose M Light MD Primary Care Provider [phone] Brea Jj COMMERCIAL LENDING RELATIONSHIP MANAGER Unavailable [phone] Tram Crooks WINDOW/DISTRIBUTION CLERK Unavailable Diana Stephen WINDOW/DISTRIBUTION CLERK Unavailable Encounter Details Date Type Department Care Team (Late st Contact Info) Description 01/17/2024 Orders Only [facility] [address] [place] [address] Brea Jj NP [address] [place] [address] Social History Tobacco Use Types Packs/Day Years [...] Visit [facility] [address] [place] [address] Brea Jj NP [address] [place] [phone] documented as of this encounter Procedures Procedure Name Priority Date/Time Associated Diagnosis Comments SCANNED LABS Routine 01/17/2024 10:42 AM EDT documented in this encounter Results * SCANNED LABS (01/17/2024 10:42 AM EDT) us Brea Jj COMMERCIAL LENDING RELATIONSHIP MANAGER LAB CHG PERFORMABLES Final Resu lt documented in this encounter Visit Diagnoses Not on filedocumented in this encounter Care Teams Sprinkling System Irrigator Relationship Specialty Start Date End Date Jose M Light MD [address] [place] [phone] PCP - General Family Medicine 10/18/23 Brea Jj NP [address] [place] [phone] PCP - [facility] 07/31/24 Brea Jj NP [address] [place] [address] Nurse Practitioner Family Medicine 10/18/23 Tram Crooks, WINDOW/DISTRIBUTION CLERK [address] [place] [address] President Nitroglycerin Supervisor 11/14/24 11/15/24 Diana Stephen, WINDOW/DISTRIBUTION CLERK [address] [place] [address] President Family Medicine 11/15/24 11/26/24 documented as of this encounter
--- OUTSIDE RECORDS SUMMARY | 2025-04-17 09:48 | XMS_ITS | Clinical Summary ---
Author Organization [facility] Address [address] [place] [address] Care Team Providers Care Hosiery Operator Name Role Phone Brea Jj MD Primary Care Provider [phone] Allergies No known active allergies Medications albuterol 90 mcg/actuation inhaler Ventolin HFA 90 mcg/actuation aerosol inhaler INHALE 2 PUFFS EVERY 4 HOURS NEEDED FOR SHORTNESS OF BREATH Active ALPRAZolam (Xanax) 0.25 mg tablet alprazolam 0.25 mg tablet TAKE ONE TABLET BY MOUTH DAILY NEEDED FOR ACUTE ANXIETY Active aspirin 81 mg EC tablet aspirin 81 mg tablet,delayed release TAKE 1 TABLET BY MOUTH DAILY Active atorvastatin (Lipitor) 40 mg tablet atorvastatin 40 mg tablet TAKE ONE TABLET BY MOUTH DAILY Active lamoTRIgine (LaMICtal) 25 mg tablet TAKE TWO TABLETS BY MOUTH ONCE DAILY AT BEDTIME 3 Active lisinopriL-hydr ochlorothiazide 20-25 mg tablet lisinopril 20 mg-hydrochloroth iazide 25 mg tablet TAKE ONE TABLET BY MOUTH DAILY Active gabapentin (Neurontin) 300 mg capsule gabapentin 300 mg capsule TAKE ONE CAPSULE BY MOUTH DAILY AT 5PM Active glycopyrrolate- formoteroL (Bevespi Aerosphere) 9-4.8 mcg HFA aerosol inhaler Bevespi Aerosphere 9 mcg-4.8 mcg HFA aerosol inhaler INHALE 2 PUFFS TWICE A DAY Active busPIRone (Buspar) 15 mg tablet Take 15 mg by mouth in the morning and at bedtime. 3 Active DULoxetine (Cymbalta) [address] capsule duloxetine 60 mg capsule,delayed release TAKE ONE CAPSULE BY MOUTH ONCE DAILY Active fluticasone (Flovent) 110 mcg/actuation inhaler Flovent HFA 110 mcg/actuation aerosol inhaler INHALE 2 PUFFS TWICE A DAY -RINSE MOUTH AFTER USE Active pioglitazone (Actos) 15 mg tablet pioglitazone 15 mg tablet TAKE ONE TABLET BY MOUTH ONCE DAILY Active theophylline ER (Uniphyl) 400 mg 24 hr tablet theophylline ER 400 mg tablet,extended release 24 hr TAKE ONE TABLET BY MOUTH TWICE A DAY Active Eliquis 5 mg tablet Take 5 mg by mouth in the morning and at bedtime. 3 Active pramipexole (Mirapex) 0.5 mg tablet Take 0.5 mg by mouth with breakfast. 3 Active potassium chloride CR (Klor-Con) 10 mEq ER tabletIndicatio ns:Benign essential HTN,Coronary-my ocardial bridge,Edema of both lower extremities TAKE ONE TABLET BY MOUTH ONCE DAILY 90 tablet 3 3 Active furosemide (Lasix) 20 mg tabletIndicatio ns:Edema, unspecified type TAKE ONE TABLET BY MOUTH ONCE DAILY 90 tablet 3 4 Active ferrous sulfate 325 (65 Fe) MG tablet Take 325 mg by mouth in the morning. 5 Active pantoprazole (ProtoNix) 40 mg EC tablet Take 40 mg by mouth before breakfast. Active multivitamin tablet Take 1 tablet by mouth in the morning. 5 Active metoprolol succinate XL (Toprol-XL) 25 mg 24 hr tabletIndicatio ns:Coronary-pérez cardial bridge,Dyspnea on exertion Take 1 tablet (25 mg) by mouth once daily as directed. Do not crush or chew. 90 tablet 3 5 03/28/20 26 Active Active Problems Problem Noted Date Diagnosed Date Diarrhea 03/28/2025 Encounter for wellness examination in adult 01/30 Occult blood positive stool 12/25/2024 Irritable bowel syndrome with diarrhea Nausea & vomiting 12/03/2024 Weight loss, unintentional 12/03/2024 Gastroenteritis 10/29/2024 JONNY (iron deficiency anemia) 10/29/2024 Rash 10/29/2024 History of pulmonary embolism 07/24/2024 Atherosclerosis of aorta 05/23/2024 Chronic respiratory failure with hypoxia 024 Gastroesophageal reflux disease without esophagi tis 05/23/2024 Other fatigue 05/23/2024 Vitamin deficiency 04/10/2024 Osteopenia after menopause 03/08/2024 Encounter for screening mamm ogram for malignant neoplasm of breast 02/21/2024 Arthritis 12/05/2023 Body mass index (BMI) 37.0-37.9, adult Other pulmonary embolism without acute cor pulmo nale 12/05/2023 Class 2 severe obesity due t o excess calories with serious comorbidity in adult 10/19/2023 ROLANDO (obstructive sleep apnea) 10/19/2023 Other insomnia 10/19/2023 Type 2 diabetes mellitus wit hout complication, without long-term current use of insulin 10/19/2023 Anxiety and depression 10/12/2023 Overview (03/28/2025): 12/03/24: GAYLE 7=4, PHQ 9=5 Mixed hyperlipidemia 10/12/2023 Restless leg syndrome 10/12/2023 Current smoker 07/20/2023 07/20/2023 Overview (07/20/2023): Added secondary to documentation in Social History. Coronary-myocardial bridge 12/24/2022 Overview (12/24/2022): Images from the original note were not included. Cath 2014- stable- metoprolol was stopped in 2020- most likely r/t pulmonary disease. Cath 2014- stable- metoprolol was stopped in 2020- most likely r/t pulmonary disease. Assessment & Plan (12/24/2022 9:33 AM EST): No concerning symptoms, overall she is doing well. Benign essential HTN 12/24/2022 Assessment & Plan (12/24/2022 9:32 AM EST): Hypertension is well controlled 102/62 Continue lisinopril/HCTZ, lasix Renal function normal Tobacco dependence 12/24/2022 Assessment & Plan (12/24/2022 8:26 AM EST): Provider had extended 10 min discussion again with patient about smoking cessation, at this time she doesn't want to take any further medication or that she is ready to quit smoking at this time. WOODY (dyspnea on exertion) 12/24/2022 Overview (12/24/2022): female presents to clinic for f/u for HTN, myocardial bridge of LAD, COPD, dsypnea. CUrrently states she is feeling well, denied chest pain, reports typical shortness of breath with exertion- on oxygen 23/05, denied orthopnea. Assessment & Plan (12/24/2022 9:34 AM EST): Stable, f/u with Dr Russo COPD mixed type 12/24/2022 Anxiety 12/24/2022 Chest pain 12/24/2022 Hypertensive disorder 12/24/2022 Palpitations 12/24/2022 Tobacco dependence syndrome 12/24/2022 Edema of both lower extremities 12/24/2022 Assessment & Plan (12/24/2022 9:34 AM EST): Currently well controlled with lasix Dyspnea 11/09/2021 Resolved Problems Problem Noted Date Diagnosed Date Resolved Date Centrilobular emphysema 12/24/2022 02/2 01/2023 Encounters Date Type Department Care Team Description 03/28/2025 9:15 AM EDT Office Visit [address] [address] Marlene Soto MD Coronary-myocardial bridge (Primary Dx); Dyspnea on exertion; Other pulmonary embolism without acute cor pulmonale, unspecified chronicity (CMS/HCC) 03/27/2025 Orders Only [address] [address] Provider, MD Ji from Last 3 Months Family History Medical History Relation Name Comments Coronary artery disease Other Deep vein thrombosis Other Pulmonary embolism Other Relation Name Status Comments Other Social History Tobacco Use Types Packs/Day Years Used Date Smoking Tobacco: Former Cigarettes Q uit: 2020 Smokeless Tobacco: Never Tobacco Cessation:Counseling Given: Not Answered Alcohol Use Standard Drinks/Week Comments Not Currently 0 (1 standard drink = 0.6 oz pur e alcohol) occasional [place] Safety & Environment Answer Date Rec orded Fear of Current or Ex-Partner Not on file Emotionally Abused Not on file 12/22/2023 Physically Abused Not on file 12/22/2023 Sexually Abused Not on file 12/22/2023 Physically or Sexually Abused Not on file Comments Unknown Sex and Gender Information Value Date Recorded Sex Assigned at Not on file Legal Sex Female 10:24 PM EDT Gender Identity Not on file Sexual Orientation Not on file Last Filed Vital Signs Vital Sign Reading Time Taken Comments Blood Pressure 134/68 03/28/2025 8:58 AM EDT Pulse 96 03/28/2025 8:58 AM EDT Temperature - - Respiratory Rate - - Oxygen Saturation 95% 03/28/2025 8:58 AM EDT Inhaled Oxygen Concentration - - Weight 118 kg (260 lb) 03/28/2025 8:58 AM EDT Height 175.3 cm (5' 9 ) 03/28/2025 8:58 AM EDT Body Mass Index 38.4 03/28/2025 8:58 AM EDT Plan of Treatment Health Maintenance Due Date Last Done Comments CT Colonography 1965 Colonoscopy 1965 Colorectal Cancer Screening 1965 Diabetes: Hemoglobin A1C 1964 FIT-DNA 1964 FIT 1964 FOBT 1965 Sigmoidoscopy 1964 Diabetes: Retinopathy Screening 1974 Depression Screening 1976 Diabetes: Urine Protein Screening 1983 Pneumococcal Vaccine: Pediatrics (0 to 5 Years) and At-Risk Patients (6 to 64 Years) (1 of 2 - PCV) 1983 Pap Smear 1985 Adult Tetanus 1986 Cervical Cancer Screening 1994 HPV/Cotest 1994 Mammogram 2004 Zoster Vaccines (1 of 2) 2014 COVID-19 Vaccine ( season) 2024 02/13/2021, 01/23/2021 Influenza Vaccine Completed 08/13/2024, , 08/12/2023, Additional history exists HIB Vaccines Aged Out No longer eligi ble based on patient's age to complete this topic HPV Vaccines Aged Out No longer eligi ble based on patient's age to complete this topic IPV Vaccines Aged Out No longer eligi ble based on patient's age to complete this topic Meningococcal B Vaccine Aged Out No l onger eligible based on patient's age to complete this topic Meningococcal Vaccine Aged Out No danni zeeshan eligible based on patient's age to complete this topic Rotavirus Vaccines Aged Out No longer eligible based on patient's age to complete this topic Procedures Procedure Name Priority Date/Time Associated Diagnosis Comments CBC Routine 02/21/2025 1:08 PM EDT BASIC METABOLIC PANEL Routine 02/21/2025 1:08 PM EDT XR CHEST 2 VIEWS Routine 02/21/2025 1:07 PM EDT from Last 3 Months Results * CBC (02/21/2025 1:08 PM EDT) Blood Venous blood specimen / Unknown Historical Provider LAB BLOOD ORDERABLES Nataliya l Result * Basic metabolic panel (02/21/2025 1:08 PM EDT) Blood Venous blood specimen / Unknown [facility] Provider LAB BLOOD ORDERABLES Nataliya l Result * XR chest 2 views (02/21/2025 1:07 PM EDT) Anatomical Region Laterality Modality Chest Computed Radiogr aphy [facility] Provider IMG XR PROCEDURES Final R esult from Last 3 Months Insurance [facility] [employer] MED[facility] Care Teams Hosiery Operator Relationship Specialty Start Date End Date Brea Jj MD [facility] [place] [address] PCP - General 12/24/22
--- OUTSIDE RECORDS SUMMARY | 2025-04-17 09:48 | XMS_ITS | Referral Summary ---
Author Organization [facility] Address [address] [place] [address] Care Team Providers Care Brass Cutter Name Role Phone Brea Jj MD Primary Care Provider Encounters Date Type Department Care Team Description 03/28/2025 9:15 AM EDT Office Visit [facility] [address] [place] [address] Marlene Soto MD Coronary-myocardial bridge (Primary Dx); Dyspnea on exertion; Other pulmonary embolism without acute cor pulmonale, unspecified chronicity (CMS/HCC) 03/27/2025 Orders Only [facility] [address] [place] [address] Provider, MD Ji from Last 3 Months Allergies No known active allergies Medications albuterol [...] Date Diagnosed Date Resolved Date Centrilobular emphysema 12/24/202212/02 Social History Tobacco Use Types Packs/Day Years [...] 03/28/2025 8:58 AM EDT Plan of Treatment Not on file Procedures Procedure Name Priority Date/Time Associated Diagnosis Comments CBC Routine 02/21/2025 1:08 PM EDT BASIC METABOLIC PANEL Routine 02/21/2025 1:08 PM EDT XR CHEST 2 VIEWS Routine 02/21/2025 1:07 PM EDT from Last 3 Months Results * CBC (02/21/2025 1:08 PM EDT) Blood Venous blood specimen / Unknown [facility] Provider LAB BLOOD ORDERABLES Nataliya l Result * Basic metabolic panel (02/21/2025 1:08 PM EDT) Blood Venous blood specimen / Unknown Historical Provider LAB BLOOD ORDERABLES Nataliya l Result * XR chest 2 views (02/21/2025 1:07 PM EDT) Anatomical Region Laterality Modality Chest Computed Radiogr aphy Historical Provider IMG XR PROCEDURES Final R esult from Last 3 Months Insurance [facility] MEDICAID Care Teams Brass Cutter Relationship Specialty Start Date End Date Brea Jj [place] [facility] [place] [address] PCP - General 12/24/22
--- OUTSIDE RECORDS SUMMARY | 2025-04-17 09:48 | XMS_ITS | Encounter Summary ---
Author Organization [facility] Address [address] [facility] [place] [address] Care Team Providers Care Benefit Authorizer Name Role Phone Brea Jj STOCK TRACER Unavailable [phone] Jose M Light MD Primary Care Provider [phone] Brea Jj STOCK TRACER Unavailable [phone] Tram Crooks PHARMACEUTICAL SALES Unavailable Diana Stephen PHARMACEUTICAL SALES Unavailable [phone] Encounter Details Date Type Department Care Team (Late st Contact Info) Description 02/13/2024 Clinisync Result Encounter [facility] External Department Unsolicited Provider, Generic External Data Social History Tobacco Use Types Packs/Day Years [...] Visit [facility] [address] [place] [address] Brea Jj NP [address] [place] [address] documented as of this encounter Procedures Procedure Name Priority Date/Time Associated Diagnosis Comments RT PULMONARY FUNCTION TEST 02/13/2024 9:14 AM EDT documented in this encounter Results * RT PULMONARY FUNCTION TEST (02/13/2024 9:14 AM EDT) Anatomical Region Laterality Modality Other 02/13/2024 9:14 AM EDT Narrative 02/15/2024 7:11 [place] [address] Respiratory Report Signed Patient: SIS MOORE MR#: [id number] : 1965 Acct:[id number] Age/Sex: 58 / F ADM Date: 02/13/24 Loc: LAB Attending Dr: Calvin Russo D.O. Ordering Physician: Calvin Russo D.O. Date of Service: 02/13/24 Procedure(s): RT pulmonary function test Accession Number(s): [id number] cc: [facility] Test Date: 2024-02-13 Pat Name: SIS MOORE Department: Room: - Gender: Female Bottom Pounder Cement Shoes: Gerald Caputo RRT : 1965 Requested By: Calvin Russo Order Number: [id number] Reading MD: Calvin Russo Interpretive Statements Pulmonary function testing was completed according to ATS criteria. Findings were considered accurate and reproducible. Both pre- and post-bronchodilator values utilized for spirometry. Spirometry (based on pre-bronchodilator values): -FEV1/FVC: Normal @ 77% -FEV1: Moderately reduced @ 54% -FVC: Severely reduced @ 54% -GMF05-42%: Reduced @ 47% -There is a partial bronchodilator response in FVC which meets >200mL increase but <12% change. Lung volumes by plethysmography (based on pre-bronchodilator values): -RV: Normal @ 107% -TLC: Normal @ 90% Diffusion capacity: -DLCO: Moderate reduction @ 60% when corrected for Hb 12.8g/dL Flow-volume loop: -Moderate restrictive pattern Impressions: -Spirometry sugggests severe restriction, but lung volumes are normal - this can be seen as an obesity pattern (stated BMI 40.2). Moderate diffusion impairment. Restriction appears to be obscuring an underlying obstructive process. Clinical correlation required. Electronically Signed On 02-15-2024 7:11:04 EDT by Calvin Russo Dictated By: Calvin Russo D.O. Signed By: 02/15/24 0711 DD/ 0914 TD/TT: Slate Roofer Helper: Procedure Note Radiology, Radiologist, MD - 02/15/2024 [place] [address] Respiratory Report Signed Patient: SIS MOORE R#: [id number] : 1965Acct:[id number] Age/Sex: 58 / FADM Date: 02/13/24 Loc: LAB Attending Dr: Calvin Russo D.O. Ordering Physician: Calvin Russo D.O. Date of Service: 02/13/24 Procedure(s): RT pulmonary function test Accession Number(s): [id number] cc: [facility] Test Date: 2024-02-13 Pat Name: SIS MOORE Department: Room: - Gender: Female Bottom Pounder Cement Shoes: Gerald Caputo RRT : 1965 Requested By: Calvin Russo Order Number: [id number] Reading MD: Calvin Russo Interpretive Statements Pulmonary function testing was completed according to ATS criteria.Findings were considered accurate and reproducible. Both pre- andpost-bronchodilator values utilized for spirometry. Spirometry (based on pre-bronchodilator values): -FEV1/FVC: Normal @ 77% -FEV1: Moderately reduced @ 54% -FVC: Severely reduced @ 54% -SCY62-95%: Reduced @ 47% -There is a partial bronchodilator response in FVC which meets >200mL increase but <12% change. Lung volumes by plethysmography (based on pre-bronchodilator values): -RV: Normal @ 107% -TLC: Normal @ 90% Diffusion capacity: -DLCO: Moderate reduction @ 60% when corrected for Hb 12.8g/dL Flow-volume loop: -Moderate restrictive pattern Impressions: -Spirometry sugggests severe restriction, but lung volumes are normal -this can be seen as an obesity pattern (stated BMI 40.2). Moderate diffusion impairment. Restriction appears to be obscuring an underlying obstructive process. Clinical correlation required. Electronically Signed On 02-15-2024 7:11:04 EDT by Calvin Russo Dictated By: Calvin Russo D.O. Signed By:02/15/24 0711 DD/ 0914 TD/TT: Slate Roofer Helper: us Generic External Data Provider [facility] Final Result documented in this encounter Visit Diagnoses Not on filedocumented in this encounter Care Teams Benefit Authorizer Relationship Specialty Start Date End Date Jose M Light MD [address] [place] [phone] PCP - General Family Medicine 10/18/23 Brea Jj NP [address] [place] [address] PCP - [facility] 07/31/24 Brea Jj NP [address] [place] [address] Nurse Practitioner Family Medicine 10/18/23 [place] [address] [place] [address] [place] Mechanical Research Engineer 11/14/24 11/15/24 Diana Stephen LSW [address] [place] [address] [place] [facility] 11/15/24 11/26/24 documented as of this encounter
--- OUTSIDE RECORDS SUMMARY | 2025-04-17 09:48 | XMS_ITS | Encounter Summary ---
Author Organization [facility] Address [address] [place] [address] Care Team Providers Care Product Mgmt Dev Manager Name Role Phone Brea Jj MD Primary Care Provider Reason for Visit * Reason Comments Med Refill Encounter Details Date Type Department Care Team (Late st Contact Info) Description 09/08/2023 Refill [facility] [address] [place] [phone] Toshia Weiner, FINANCIAL SALES MANAGER [address] [place] [address] Edema, unspecified type; Benign essential HTN; Coronary-myocardial [...] encounter Miscellaneous Notes * Telephone Encounter - Portia Barrera - 09/08/2023 1:17 PM EST Approving, but needs appt for additional refills. documented in this encounter Plan of Treatment Not on file documented as of this encounter Visit Diagnoses Diagnosis Edema, unspecified type Benign essential HTN Coronary-myocardial bridge Edema of both lower extremities documented in this encounter Care Teams Product Mgmt Dev Manager Relationship Specialty Start Date End Date Brea Jj MD [address] [place] [address] PCP - General 12/24/22 documented as of this encounter
--- OUTSIDE RECORDS SUMMARY | 2025-04-17 09:48 | XMS_ITS | Patient Health Record ---
Author Organization [facility] Address [address] [place] [address] Support Name Relationship Address Phone ALIYA CONDON Guarantor Unknown [phone] Reason For Referral No Information Social History Tobacco Use: Social History Observation Description Date Details (start date - stop date) Former Smoker 10/31/1980 - 07/30/2023 Smoking History Question Answer Notes Smoking Status Former Smoker When did you start smoking? 10/31/1980 When did you stop smoking? 07/30/2023 How long since you quit 1 - 3 months Problems Problem Type SNOMED Code ICD Code Onset Dates Problem Status W/U Status Risk Notes Problem [id number] Primary osteoarthritis of left knee (M17.12) Active confirmed Plan Of Treatment No Information Insurance Providers Payer Name Payer Address Payer Phone Subscriber Number Group Number Insured Name Patient Relationship to Insured Coverage Start Date Coverage End Date Medicaid [place] [place] [address] [facility] [phone] [id number] ALIYA CONDON Self - patient is the insured
--- OUTSIDE RECORDS SUMMARY | 2025-04-17 09:48 | XMS_ITS | Encounter Summary ---
Author Organization [facility] Address [address] [facility] [place] [address] Care Team Providers Care Research Laboratory Specialist Name Role Phone Brea Jj PHYSICAL SCIENCE TEACHER Unavailable [phone] Jose M Light MD Primary Care Provider [phone] Brea Jj PHYSICAL SCIENCE TEACHER Unavailable [phone] Tram Crooks RETAIL KEY HOLDER Unavailable Diana Stephen RETAIL KEY HOLDER Unavailable Encounter Details Date Type Department Care Team (Late st Contact Info) Description 12/21/2023 Orders Only [facility] [address] [place] [address] Brea Jj NP [address] [place] [address] Social History Tobacco Use Types Packs/Day Years [...] Visit [facility] [address] [place] [address] Brea Jj NP [address] [place] [address] documented as of this encounter Procedures Procedure Name Priority Date/Time Associated Diagnosis Comments ELECTROCARDIOGRAM REPORT Routine 024 10:27 AM EST documented in this encounter Results * Electrocardiogram Report (12/20/2023 10:27 AM EST) us Brea Jj NP IN CLINIC/BEDSIDE ORDERABLES Fi nal Result documented in this encounter Visit Diagnoses Not on filedocumented in this encounter Care Teams Research Laboratory Specialist Relationship Specialty Start Date End Date Jose M Light MD [address] [place] [address] PCP - General Family Medicine 10/18/23 Brea Jj NP [address] [place] [address] PCP - [facility] 07/31/24 Brea Jj NP [address] [place] [address] Nurse Practitioner Family Medicine 10/18/23 Tram Crooks, RETAIL KEY HOLDER [address] [place] [address] Decorator Mannequin Supervisor Engraving 11/14/24 11/15/24 Diana Stephen, SKY [address] [place] [address] Decorator Mannequin Family Medicine 11/15/24 11/26/24 documented as of this encounter
--- OUTSIDE RECORDS SUMMARY | 2025-04-17 09:49 | XMS_ITS | Encounter Summary ---
Author Organization [facility] Address [address] [facility] [place] [address] Care Team Providers Care Dry Kiln Operator Helper Name Role Phone Brea Jj PATIENT FINANCIAL COORDINATOR Unavailable [phone] Jose M Light MD Primary Care Provider [phone] Brea Jj PATIENT FINANCIAL COORDINATOR Unavailable [phone] Reason for Visit * Reason Comments Med Refill Encounter Details Date Type Department Care Team (Late st Contact Info) Description 04/04/2025 Refill [facility] [address] [place] [address] Brea Jj NP [address] [place] [address] Vitamin deficiency (Primary Dx) Social History Tobacco Use Types Packs/Day Years [...] Office Visit [facility] [address] [place] [address] Brea Jj, TOBIAS [address] [place] [address] documented as of this encounter Visit Diagnoses Diagnosis Vitamin deficiency- Primary Unspecified vitamin deficiency documented in this encounter Care Teams Dry Kiln Operator Helper Relationship Specialty Start Date End Date Jose M Light MD [address] [place] [address] PCP - General Family Medicine 10/18/23 Brea Jj NP [address] [place] [address] PCP - [facility] 07/31/24 Brea Jj NP [address] [place] [address] Nurse Practitioner Family Medicine 10/18/23 documented as of this encounter
--- OUTSIDE RECORDS SUMMARY | 2025-04-17 09:49 | XMS_ITS | Encounter Summary ---
Author Organization [facility] Address [address] [facility] [place] [address] Care Team Providers Care Livestock Caretaker Name Role Phone Brea Jj BAKERY CHEF Unavailable [phone] Jose M Light MD Primary Care Provider [phone] Brea Jj BAKERY CHEF Unavailable [phone] Tram Crooks RANGE MASTER Unavailable Diana Stephen RANGE MASTER Unavailable [phone] Encounter Details Date Type Department Care Team (Late st Contact Info) Description 05/29/2024 Clinisync Result Encounter [facility] External Department Unsolicited [...] Office Visit [facility] [address] [place] [address] Brea Jj, TOBIAS [address] [place] [address] documented as of this encounter Procedures Procedure Name Priority Date/Time Associated Diagnosis Comments CT LUNG SCREENING LOW DOSE 05/29/2024 4:02 PM EDT documented in this encounter Results * CT LUNG SCREENING LOW DOSE (05/29/2024 4:02 PM EDT) Anatomical Region Laterality Modality Other 05/29/2024 4:02 PM EDT Narrative 05/29/2024 4:04 [place] [address] CT Scan Report Signed Patient: SIS MOORE MR#: [id number] : 1965 Acct:[id number] Age/Sex: 58 / F ADM Date: 05/29/24 Loc: CT Attending Dr: Corrina Gaines D.O. Ordering Physician: Corrina Gaines D.O. Date of Service: 05/29/24 Procedure(s): CT lung screening low-dose Accession Number(s): [id number] cc: Brea Jj NP [address] [id number] Patient Name: SIS MOORE MRN: [id number] date: 1965 Sex: F Assigned Patient Location: CT Current Patient Location: CT Accession/Order Number: [id number] Exam Date: 05/29/2024 09:29 Report Date: 05/29/2024 16:02 At the request of: CORRINA GAINES Procedure: CT lung screening low-dose EXAMINATION: [...] LDCT in 12 months. Electronically authenticated by: LEANA DAVIDSON Date: 05/29/2024 16:02 Dictated By: Leana Davidson M.D. Signed By: 05/29/24 1604 DD/ 1602 TD/TT: Fluid Pump Operator: Procedure Note Radiology, Radiologist, MD - 05/29/[address] [address] [address] Scan Report Signed Patient: SIS MOORE R#: [id number] : 1965Acct:[id number] Age/Sex: 58 / FADM Date: 05/29/24 Loc: CT Attending Dr: Corrina Gaines D.O. Ordering Physician: Corrina Gaines D.O. Date of Service: 05/29/24 Procedure(s): CT lung screening low-dose Accession Number(s): [id number] cc: Brea Jj NP The [address] [address] Patient Name: SIS MOORE MRN: [facility]:[id number] date: 1965 Sex: F Assigned Patient Location: CT Current Patient Location: CT Accession/Order Number: [id number] Exam Date: 05/29/2024 09:29 Report Date: 05/29/2024 16:02 At the request of: CORRINA GAINES Procedure: CT lung screening low-dose EXAMINATION: CT lung screening low-dose HISTORY: Nicotine Dependence F17.219 COMPARISON: 06/16/2023 from an outside institution TECHNIQUE: Axial, Coronal, and Sagittal images were created without the administration of IV contrast material.Dose reduction techniques wereachieved by using automated exposure control and/or adjustment [...] No suspicious findings. Limited images of the upperabdomen. OTHER: Negative. CT/CT lung screening low-dose IMPRESSION: LUNG SCREENING: Lung-RADS Category 1 Negative. No nodules and definitely benign nodules. Continue annual screening with LDCT in 12 months. Electronically authenticated by: LEANA DAVIDSON Date: 05/29/2024 16:02 Dictated By: Leana Davidson M.D. Signed By:05/29/24 1604 DD/ 1602 TD/TT: Fluid Pump Operator: us Generic External Data Provider [facility] Final Result documented in this encounter Visit Diagnoses Not on filedocumented in this encounter Care Teams Livestock Caretaker Relationship Specialty Start Date End Date Jose M Light MD [address] [place] [address] PCP - General Family Medicine 10/18/23 Brea Jj NP [address] [place] [address] [facility] 07/31/24 Brea Jj NP [address] [place] [address] Nurse Practitioner Family Medicine 10/18/23 Tram Crooks, SKY [address] [place] [address] Senior Mobile Solutions Architect Security Systems Integrator 11/14/24 11/15/24 Diana Stephen, SKY [address] [facility] [place] [address] Senior Mobile Solutions Architect Family Medicine 11/15/24 11/26/24 documented as of this encounter
--- OUTSIDE RECORDS SUMMARY | 2025-04-17 09:49 | XMS_ITS | Encounter Summary ---
Author Organization [facility] Address [address] [place] [address] Care Team Providers Care Sustainability Manager Name Role Phone Brea Jj MD Primary Care Provider [phone] Reason for Visit * Reason Comments Med Refill Encounter Details Date Type Department Care Team (Late st Contact Info) Description 12/08/2023 Refill [facility] [address] [place] [phone] Marlene Soto MD [address] [facility] [address] [facility] [place] [address] Edema, unspecified type Social History Tobacco Use Types Packs/Day Years [...] encounter Visit Diagnoses Diagnosis Edema, unspecified type documented in this encounter Care Teams Sustainability Manager Relationship Specialty Start Date End Date Brea Jj MD [address] [place] [address] PCP - General 12/24/22 documented as of this encounter
== END 2025-04-17 09:46 | disposition home or self-care (01) ==
LOC: MAMMO 09:45
PROVIDERS: PCP Nurse Practitioner; Visit Provider Nurse Practitioner
DX: Z12.31 Encounter for screening mammogram for malignant neoplasm of breast (principal)
CPT/HCPCS: 77063; 77067

== ENCOUNTER 2025-04-30 07:35 | Outpatient (OUT) | payer OTHER, SELFPAY ==
--- OUTSIDE RECORDS SUMMARY | 2023-11-07 05:00 | XMS_ITS ---
Author Organization [facility] Address [address] [place] [address] Care Team Providers Care Plastics Heat Welder Name Role Phone Papito Berkowitz Unavailable [phone] REASON FOR VISIT RT knee pain Encounters Encounter Location Date Provider Diagnosis [facility] [address] [place] [address] [place] [address] 11/07/2023 Papito Berkowitz Plan Of Treatment No Information Progress Notes * ALIYA CONDONDOB: 5 (59 yo F)Acc No.[id number]:11/07/2023 Patient: LITO TORRESELA Provider: Torsten Berkowitz MD :1965 A ge:58 Y S ex:Female Date:11/07/2023 Address:[address] [place] [address] [address] HE[address] AV[address]ORENZO, [id number] Subjective: * Chief Complaints: * 1 . RT knee pain. * Medical History: Objective: * Vitals: Assessment: Plan: * Treatment: Forms: * Images: * Electronic signature of Carl Berkowitz MD on 04/30/2025 at 07:38 AM EDT Sign off status: Pending * Provider: Torsten Berkowitz MD Date: 11/07/2023 Generated for Joe landers/Angelica/Ofeliaitting on: 04/30/2025 07:38 AM EDT
--- OUTSIDE RECORDS SUMMARY | 2025-01-21 07:48 | XMS_ITS ---
Author Organization [facility] in [place] Address [address] [place] [address] Care Team Providers Care Feeder Switchboard Operator Name Role Phone Brea Jj CNP Primary Care Provider Unavail Calvin Pettit Unavailable [phone] REASON FOR VISIT EGD/Colonoscopy Procedure Encounters Encounter Location Date Provider Diagnosis Pulmonary Medicine [place] [address] [place] [address] 01/21/2025 Calvin Russo Plan Of Treatment Next Appt Details Provider Name:Calvin Russo, 07/31/2025 08:30:00 AM, [address] [place], [address], Progress Notes * Sis MOOREDOB: [birth year] (59 yo F)Acc No.[id number]:01/21/2025 Patient: Sis TORRES :1965 A ge:59 Y S ex:Female Address:[address] [place] [address] [place], [address] * true * Date: Generated for Printi ng/Faxing/eTransmitting on: 0 04/30/2025 07:38 AM EDT
--- OUTSIDE RECORDS SUMMARY | 2025-01-30 04:30 | XMS_ITS ---
Author Organization [facility] [place] Address [address] [place] [address] Care Team Providers Care Knuckle Bender Name Role Phone Brea Jj CNP Primary Care Provider Unavail able Calvin Russo Unavailable [phone] Allergies No Known Allergies REASON FOR VISIT [...] Encounter Location Date Provider Diagnosis [facility] [place] [address] [place] [address] 01/30/2025 Calvin Russo Chronic respiratory failure with hypoxia J96.11 ; Paraseptal emphysema J43.8 ; Cigarette nicotine dependence with nicotine-induced disorder F17.219 ; Pulmonary embolism I26.99 ; Obstructive sleep apnea G47.33 ; Diabetes mellitus type 2, controlled E11.9 ; bale coverer (current) use of inhaled steroids Z79.51 and Obesity, unspecified E66.9 Assessments Encounter Date Diagnosis (ICD Code) Assessment Notes Treatment Notes Treatment Clinical Notes Section Notes 01/30/2025 Chronic respiratory failure with hypoxia (ICD-10 - J96.11) Cnig-sy-zhuq encounter performed with the patient to document [...] return in 6 months for longitudinal evaluation. Xhak-bl-zvjz encounter performed with the patient to document [...] to manage diabetes in this situation. 01/30/2025 bale coverer (current) use of inhaled steroids (ICD-10 - [...] Assessment Notes Chronic respiratory failure with hypoxia Qfuy-jb-vmrq encounter performed with the patient to document [...] return in 6 months for longitudinal evaluation. Zzpd-uu-vgwr encounter performed with the patient to document [...] plan to manage diabetes in this situation. alf (current) use of i nhaled steroids Patient was counseled to rinse & gargle with water after inhaled corticosteroid use. Obesity, unspecified Patient's weight is inducing a restrictive pulmonary physiology. Weight loss indicated: Decrease calories, increase activity. Next Appt Details Follow Up: 6 Months, Reason: COPD, O2 Provider Name:Calvin Russo, 07/31/2025 08:30:00 AM, [address] [place], [address], Procedure Notes * Category Sub-Category Detail Notes PFT Data: 02/13/2024-FEV1/F VC: 77%-FEV1: 54%-FVC: 54%-Bronchodilator response: Partial-RV: 107%-T%-DLCO: 60%-Flow-volume loop: Moderate restriction02/01/2023-FEV1/FVC: 80%-FEV1: 52%-FVC: 51%-Bronchodilator response: None-RV: 89%-T%-DLCO: 49%-Flow-volume loop: Moderate restriction03/13/2021-FEV1/FVC: 75%-FEV1: 48%-FVC: 50%-Bronchodilator response: None-RV: 114%-T%-DLCO: 59%-Flow-volume loop: Moderate mbliawdnvmi65/7/2019-FEV1/FVC: 76%-FEV1: 53%-FEV1: 55%-Bronchodilator response: none-RV: 136%-T%-DLCO:79%-FeNO: 9-Ajkg-vnmayi loop: Moderate restriction06/10/2016-FEV1/FVC: 72%-FEV1: 57%-FVC: 63%-Bronchodilator response: none-RV: 184%-T%-DCO: 81%-Flow-volume loop: Moderate restriction with obstructive pattern Alpha-1 Antitrypsin Screening Date: 03/04/2021 Genotype: MM Progress Notes * Sis MOOREDOB: [birth year] (59 yo F)Acc No.[id number]:01/30/2025 Follow Up Patient: Sis TORRES Provider: Ruthann Russo DO :1965 A ge:59 Y S ex:Female Date:01/30/2025 Address:[address] [place] [address] , [place], [id number] Pcp:Brea Jj, HIGHWAY PATROL OFFICER Check In:08:13 AM ESTCheck O ut:08:52 AM [...] [facility] She continues to use supplemental O2 with benefit with activity. She quit smoking again, 2 days ago. She has been having some diarrhea along with N/V. She saw Dr. Eddy @ [facility]. There are plans for colonoscopy, but patient [...] nervous. Patient is under the care of [facility] Cardiology & [facility] Hematology. * ROS: G eneral/Constitutional: Fever or [...] failure with hypoxia Modified On:02/01/2024/U Status:confirmed Z79.51 bale coverer (current) use of inhaled steroids Modified On:02/01/2024/U [...] hypoxia P rocedure: Six minute walk Notes: Mice-lz-sdia encounter performed with the patient to document [...] 01/30/2025 Cessation counseling provided 0 01/30/2025 B [place] ACTION PLAN Above Normal BMI Follow-up D ietary management education, guidance, and counseling * Follow Up: 6 Months (Reason: COPD, O2) * * Sign off status: Completed Visit Status: C HK (Check Out) true * Provider: Ruthann Russo DO Date: 0 01/30/2025 Generated for Joe landers/Angelica/Ofeliaitting on: 0 04/30/2025 07:37 AM EDT History and Physical Notes * [...] nervous. Patient is under the care of [facility] Cardiology & [facility] Hematology. Examination Category Sub-Category Detail Notes Category Not es Exam GENERAL APPEARANCE: In no acute distress Skin Normal Mouth [place] and moist. Dodie tulous. No oral candidiasis [...]
--- OUTSIDE RECORDS SUMMARY | 2025-02-19 04:52 | XMS_ITS ---
Author Organization [facility] in [place] Address [address] [place] [address] Care Team Providers Care Stave And Bolt Equalizer Name Role Phone Brea Jj CNP Primary Care Provider Unavail able Calvin Russo Unavailable [phone] REASON FOR VISIT SOB Medications Medication SIG (Take, Route, Fr equency, Duration) Notes Start Date End Date Status predniSONE 20 MG 3 tabs x 3 days, 2 t abs x 3 days, 1 tab x 3 days Orally Once a day for 9 days 02/19/2025 Active Encounters Encounter Location Date Provider Diagnosis Pulmonary Medicine [place] [address] [place] [address] 02/19/2025 Calvin Russo Chronic obstructive pulmonary disease [...] Name:Calvin Bennett, 07/31/2025 08:30:00 AM, [address] [place], [address], Progress Notes * Sis MOOREDOB: [birth year] (59 yo F)Acc No.[id number]:02/19/2025 Patient: Sis TORRES :1965 A ge:59 Y S ex:Female Address:[address] [place] [address] , [place], [address] * Refills Start predniSONE Tablet, 20 MG, [...] Date: Generated for Joe landers/Angelica/eTransmitting on: 0 04/30/2025 07:38 AM EDT
--- OUTSIDE RECORDS SUMMARY | 2025-04-30 07:38 | XMS_ITS | Encounter Summary ---
Author Organization [facility] Address [address] [facility] [place] [address] Care Team Providers Care Concrete Buster Operator Name Role Phone Brea Jj SUPERVISOR CYTOLOGY Unavailable [phone] Jose M Light MD Primary Care Provider [phone] Brea Jj SUPERVISOR CYTOLOGY Unavailable [phone] Tram Crooks MACHINE ZIPPER TRIMMER Unavailable Diana Stephen MACHINE ZIPPER TRIMMER Unavailable Encounter Details Date Type Department Care Team (Late st Contact Info) Description 01/17/2024 Orders Only [facility] [address] [place] [address] Brea Jj NP [address] [place] [address] Social History Tobacco Use Types Packs/Day Years [...] Visit [facility] [address] [place] [address] Brea Jj NP [address] [place] [address] documented as of this encounter Procedures Procedure Name Priority Date/Time Associated Diagnosis Comments SCANNED LABS Routine 01/17/2024 10:42 AM EDT documented in this encounter Results * SCANNED LABS (01/17/2024 10:42 AM EDT) us Brea Jj SUPERVISOR CYTOLOGY LAB CHG PERFORMABLES Final Resu lt documented in this encounter Visit Diagnoses Not on filedocumented in this encounter Care Teams Concrete Buster Operator Relationship Specialty Start Date End Date Jose M Light MD [address] [place] [address] PCP - General Family Medicine 10/18/23 Brea Jj NP [address] [place] [address] PCP - [facility] 07/31/24 Brea Jj NP [address] [place] [address] Nurse Practitioner Family Medicine 10/18/23 Tram Crooks, MACHINE ZIPPER TRIMMER [address] [place] [address] [employer] Bank Messenger 11/14/24 11/15/24 Diana Stephen, MACHINE ZIPPER TRIMMER [address] [place] [address] [employer] Family Medicine 11/15/24 11/26/24 documented as of this encounter
--- OUTSIDE RECORDS SUMMARY | 2025-04-30 07:38 | XMS_ITS | Encounter Summary ---
Author Organization [facility] Address [address] [facility] [place] [address] Care Team Providers Care Registered Nurse Renal Name Role Phone Brea Jj NP Unavailable [phone] Jose M Light MD Primary Care Provider [phone] Brea Jj ACCOUNT RESOLUTION EXPERT Unavailable [phone] Tram Crooks PERSONAL LINES ADVISOR Unavailable Diana Stephen PERSONAL LINES ADVISOR Unavailable Encounter Details Date Type Department Care Team (Late st Contact Info) Description 04/02/2024 Orders Only [facility] [address] [place] [address] Brea Jj NP [address] [place] [place] [address] Social History Tobacco Use Types Packs/Day Years [...] Visit [facility] [address] [place] [address] Brea Jj NP [address] [place] [address] documented as of this encounter Procedures Procedure Name Priority Date/Time Associated Diagnosis Comments ELECTROCARDIOGRAM REPORT Routine 024 8:56 AM EDT documented in this encounter Results * Electrocardiogram Report (03/31/2024 8:56 AM EDT) us Brea Jj NP IN CLINIC/BEDSIDE ORDERABLES Fi nal Result documented in this encounter Visit Diagnoses Not on filedocumented in this encounter Care Teams Registered Nurse Renal Relationship Specialty Start Date End Date Jose M Light MD [address] [place] [address] PCP - General Family Medicine 10/18/23 Brea Jj NP [address] [place] [address] PCP - [facility] 07/31/24 Brea Jj NP [address] [place] [address] Nurse Practitioner Family Medicine 10/18/23 Tram Crooks, PERSONAL LINES ADVISOR [address] [place] [address] Information Technology Account Manager Collar Packer 11/14/24 11/15/24 Diana Stephen, SKY [address] [place], [place] [id number] Information Technology Account Manager Family Medicine 11/15/24 11/26/24 documented as of this encounter
--- OUTSIDE RECORDS SUMMARY | 2025-04-30 07:38 | XMS_ITS | Clinical Summary ---
Author Organization [facility] Address [address] [place] [address] Care Team Providers Care Noxious Weeds And Pest Inspector Name Role Phone Brea Jj MD Primary Care Provider [phone] Allergies No known active allergies Medications albuterol [...] Description 03/28/2025 9:15 AM EDT Office Visit [address] [address] Marlene Soto MD Coronary-myocardial bridge (Primary Dx); Dyspnea on exertion; Other pulmonary embolism without acute cor pulmonale, unspecified chronicity (CMS/HCC) 03/27/2025 Orders Only [address] [address] Provider, MD Ji from Last 3 Months [...] Blood Venous blood specimen / Unknown [facility] Provider LAB BLOOD ORDERABLES Nataliya l Result * XR chest 2 views (02/21/2025 1:07 PM EDT) Anatomical Region Laterality Modality Chest Computed Radiogr aphy [facility] Provider IMG XR PROCEDURES Final R esult from Last 3 Months Insurance [facility] PLAN MEDICAID Care Teams Noxious Weeds And Pest Inspector Relationship Specialty Start Date End Date Brea Jj MD [facility] [place] [address] PCP - General 12/24/22
--- OUTSIDE RECORDS SUMMARY | 2025-04-30 07:38 | XMS_ITS | Clinical Summary ---
Author Organization [facility] Address [address] [facility] [place] [address] Care Team Providers Care Police Patrol Lieutenant Name Role Phone Brea Jj RETURNED GOODS REPAIRER Unavailable [phone] Jose M Light MD Primary Care Provider [phone] Brea Jj RETURNED GOODS REPAIRER Unavailable [phone] Allergies No known active allergies Medications [...] crush, chew, or split. 30 tablet 5 025 Active pioglitazone (Actos) 15 MG tabletIndications :Type 2 diabetes mellitus without complication, without long-term current use of insulin (HCC) Take 1 tablet (15 mg) by mouth Daily 30 tablet 5 025 Active pramipexole (Mirapex) 0.5 MG tabletIndications :Restless leg syndrome Take 1 tablet (0.5 mg) by mouth at bedtime 30 tablet 5 025 Active lamoTRIgine (LaMICtal) 25 MG tabletIndications :Anxiety and depression Take 2 tablets (50 mg) by mouth at bedtime 60 tablet 5 025 Active clonazePAM (KlonoPIN) 0.5 MG tabletIndications :Anxiety and depression,Restle ss leg syndrome,Other insomnia Take 1 tablet (0.5 mg) by mouth at bedtime 30 tablet 2 025 Active Multiple Vitamin (Multivitamin) tabletIndications :Vitamin deficiency Take 1 tablet by mouth Daily 30 tablet 5 025 2024 Active Multiple Vitamin (Multivitamin) tablet 025 2024 Discontinued Calcium Carb-Cholecalcife rol 600-5 MG-MCG tabletIndications :Osteopenia after menopause Take 1 tablet by mouth in the morning and 1 tablet before bedtime. 60 tablet 5 025 2024 Active Problems Problem Noted Date [...] I have referred her to GI in [facility] trial Xifaxin for for IBS-D Has failed: immmodium, pepto Sxs could also be gallbladder related as well #3 samples: lot: [id number] exp 04/26 Assessment & Plan (12/03/2024 9:42 [...] dose changes, would like counseling Refer to [facility] Assessment & Plan (12/03/2024 9:21 AM EST): [...] as of last week, no living in [place], much less stress Essential (primary) hypertension 10/12/2023 [...] of the risks of continued smoking: stroke, ID, all forms of cancer, lung disease, and [...] Encounters Date Type Department Care Team Description 04/17/2025 Clinisync Result Encounter [facility] External Department Unsolicited Brea Jj NP 04/04/2025 Refill [facility] [address] [place] [address] Brea Jj NP Vitamin deficiency (Primary Dx) 03/06/2025 Refill [facility] [address] [place] [address] Brea Jj NP Osteopenia after menopause (Primary Dx) 02/25/2025 9:40 AM EDT Office Visit [facility] [address] [place] [address] Brea Jj NP Encounter for wellness examination [...] COPD exacerbation (HCC) 02/25/2025 Patient Outreach [facility] [address] [facility] [place] [address] Ander Wheat MA 02/25/2025 Bamboo flowsheet [facility] [address] [place] [address] Brea Jj NP 02/06/2025 Refill [facility] [address] [place] [address] Brea Jj NP Edema of both lower extremities (Primary Dx) 02/04/2025 Telephone [facility] [address] [place] [address] Brea Jj NP from Last 3 Months Immunizations Immunization Administration [...] 9:00 AM EDT Office Visit [facility] [address] [place] [address] Brea Jj, RETURNED GOODS REPAIRER [address] [place] [phone] Health Maintenance Due Date Last Done Comments CT Colonography 1965 FIT-DNA 1965 FIT 1965 FOBT 1965 Sigmoidoscopy 1965 Pap Smear 1985 Diabetes: Urine Protein Screening 03/15/2025 024, 04/14/2023 Influenza Vaccine (#1) 2025 4, 07/16/2024, 08/12/2023, Additional history exists Diabetes: Hemoglobin A1C 08/27/2025 025, 10/29/2024, 10/29/2024, Additional history exists Mammogram 04/17/2026 04/17/2025, 03/31, 04/14/2023 Diabetes: Retinopathy Screening 01/01/2027 5, 01/29/2023 Cervical Cancer Screening 06/23/2028 HPV/Cotest 06/23/2028 06/23/2023 Colonoscopy 03/31/2030 03/31/2020 Colorectal Cancer Screening 03/31/2030 Procedures Procedure Name Priority Date/Time Associated Diagnosis Comments MM TOMOSYNTHESIS SCREENING BI 04/17/2025 4:38 PM EDT POCT GLYCOSYLATED HEMOGLOBIN (HGB A1C) Routine 02/25/2025 10:08 AM EDT Type 2 diabetes mellitus without complication, without long-term current use of insulin (HCC) THINPREP PAP AND HPV MRNA E6/E7 W/RFL HPV 16,18/45 Routine 06/23/2023 10:28 AM EDT Screening for cervical cancer Encounter for gynecological examination without abnormal finding from Last 3 Months or Most Recently Relevant to Health Maintenance Results * MM TOMOSYNTHESIS SCREENING BI (04/17/2025 4:38 PM EDT) Anatomical Region Laterality Modality Other 04/17/2025 4:38 PM EDT Narrative 04/17/2025 4:39 PM EDT [facility] [place] [id number] Mammography Report Signed Patient: SIS MOORE MR#: [id number] : 1965 Acct:[id number] Age/Sex: 59 / F ADM Date: 04/17/25 Loc: MAMMO Attending Dr: Brea Jj NP Ordering Physician: Brea Jj NP Results: Date of Service: 04/17/25 Follow Up: Procedure(s): MM tomosynthesis screening BI Accession Number(s): [id number] cc: Brea Jj NP Patient Name: SIS MOORE MR#: [id number] : 1965 Exam Date: 04/17/2025 Ordering Doctor: ENRIQUE JJ SENIOR ENGINEERING TECH RADIOLOGY REPORT PROCEDURE: MM TOMOSYNTHESIS SCREENING BI COMPARISON: MM TOMOSYNTHESIS SCREENING BI, 04/16/2024. MM TOMOSYNTHESIS SCREENING BI, 04/14/2023. MG MAMM SCREEN 3D EMY CAD, 04/30/2022. MG MAMM EMY SCRN W CAD DIG, 09/05/2007. INDICATIONS: Screening Calculator Name NCI Breast Cancer Risk Assessment Tool 5 Year Breast Cancer Risk 0.90% Lifetime Breast Cancer Risk 4.90% Personal Breast Cancer No Personal Ovarian Cancer No Treatments None Family Cancers None LOCATION: [facility] BREAST COMPOSITION: The breasts are almost entirely fatty. FINDINGS: DIAGNOSTIC CATEGORY 1--NEGATIVE. RIGHT BREAST: No significant suspicious finding. LEFT BREAST: No significant suspicious finding. RECOMMENDATIONS: ROUTINE MAMMOGRAM AND CLINICAL EVALUATION IN 12 MONTHS. PLEASE NOTE: A NORMAL MAMMOGRAM DOES NOT EXCLUDE THE POSSIBILITY OF BREAST CANCER. A CLINICALLY SUSPICIOUS PALPABLE LUMP SHOULD BE BIOPSIED. Dictated by: Maclom Andre DO on 04/17/2025 at 16:37 Approved by: Malcom Andre DO on 04/17/2025 at 16:38 Dictated By: Malcom Andre M.D. Signed By: 04/17/25 1639 DD/ 37 TD/TT: Drop Wire Hanger: Procedure Note Radiology, Radiologist, MD - 04/17/2025 [place] [address] Mammography Report Signed Patient: SIS MOORE JMR#: [id number] : 1965Acct:[id number] Age/Sex: 59 / FADM Date: 04/17/25 Loc: MAMMO Attending Dr: Brea Jj RETURNED GOODS REPAIRER Ordering Physician: Brea Jj NPResults: Date of Service: 04/17/25Follow Up: Procedure(s): MM tomosynthesis screening BI Accession Number(s): [id number] cc: Brea Jj NP Patient Name: SIS MOORE MR#: [id number] : 1965 Exam Date: 04/17/2025 Ordering Doctor: ENRIQUE JJ SENIOR ENGINEERING TECH RADIOLOGY REPORT PROCEDURE: MM TOMOSYNTHESIS SCREENING BI COMPARISON: MM TOMOSYNTHESIS SCREENING BI, 04/16/2024. MMTOMOSYNTHESIS SCREENING BI, 04/14/2023. MG MAMM SCREEN 3D EMY CAD, 04/30/2022. MG MAMMBIL SCRN W CAD DIG, 09/05/2007. INDICATIONS: Screening Calculator Name NCI Breast Cancer Risk Assessment Tool 5 Year Breast Cancer Risk 0.90% Lifetime Breast Cancer Risk 4.90% Personal Breast Cancer No Personal Ovarian Cancer No Treatments None Family Cancers None LOCATION: [facility] BREAST COMPOSITION: The breasts are almost entirely fatty. FINDINGS: DIAGNOSTIC CATEGORY 1--NEGATIVE. RIGHT BREAST: No significant suspicious finding. LEFT BREAST: No significant suspicious finding. RECOMMENDATIONS: ROUTINE MAMMOGRAM AND CLINICAL EVALUATION IN 12 MONTHS. PLEASE NOTE: A NORMAL MAMMOGRAM DOES NOT EXCLUDE THE POSSIBILITY OFBREAST CANCER. A CLINICALLY SUSPICIOUS PALPABLE LUMP SHOULD BE BIOPSIED. Dictated by: Malcom Andre DO on 04/17/2025 at 16:37 Approved by: Malcom Andre DO on 04/17/2025 at 16:38 Dictated By: Malcom Andre M.D. Signed By:04/17/251638 DD/ 37 TD/TT: Drop Wire Hanger: Brea Анна [facility] Final Result * (ABNORMAL) POCT glycosylated hemoglobin (Hb A1C) docked device (02/25/2025 10:08 AM EDT) Hemoglobin A1C 6.1 Blood Venous blood specimen / Unknown 02/25/2025 10:08 AM EDT Brea Angelyheatherlloyd [facility] POINT OF CARE TEST ENTER/EDIT O RDERABLES Final Result * THINPREP PAP AND HPV [...] components cannot be reported in this patient. RESIDENTIAL CHILD CARE COUNSELOR [facility] Comment: COLE BRAVO(ASCP) CT screening location: [facility], [address] [place] [address], [place] [address]. (ALWAYS MESSAGE) [facility] Comment: EXPLANATORY NOTE: The [...] Not Detected Not Detected [facility] Comment: Methodology: Jewelry Drill Operator-Mediated Amplification This assay detects E6/E7 viral messenger RNA (mRNA) from 14 high-risk HPV types (16,18,31,33,35,39,45,51,52,56,58,59,66,68). Cervical sources are required for HPV testing. If a vaginal source from a patient who has had a total hysterectomy with removal of cervix was submitted, please contact the testing laboratory for alternative testing options. For additional information, please refer to http://education.Tipzu/faq/NDI802c1 (This link if provided for information/ educational purposes only.) Other 06/23/2023 10:2 8 AM EDT 06/24/2023 4:13 AM EDT Narrative Resulting Agency Comment Performing Organization Information Site ID: [id number] Name: [facility] Address: [address] [place] [address], [address] [place] [id number] Director: Zaki Prasad MD Yessica Kline NP LAB BLOOD ORDERABLES Nataliya sorensen Result [facility] from Last 3 Months or Most Recently Relevant to Health [place] [address] [employer] Care Teams Police Patrol Lieutenant Relationship Specialty Start Date End Date Jose M Light MD [address] [place] [address] PCP - General Family Medicine 10/18/23 Brea Jj NP [address] [place] [address] PCP - [employer] 07/31/24 Brea Jj NP [address] [place] [address] Nurse Practitioner Family Medicine 10/18/23
--- OUTSIDE RECORDS SUMMARY | 2025-04-30 07:38 | XMS_ITS | Encounter Summary ---
Author Organization [facility] Address [address] [place] [address] Care Team Providers Care Motion Picture Director Name Role Phone Brea Jj MD Primary Care Provider [phone] Reason for Visit * Reason Comments Med Refill Encounter Details Date Type Department Care Team (Late st Contact Info) Description 10/12/2023 Refill [facility] [address] [place] [phone] Marlene Soto MD [address] [facility] [address] [place] [phone] Benign essential HTN; Coronary-myocardial bridge; Edema of [...] extremities documented in this encounter Care Teams Motion Picture Director Relationship Specialty Start Date End Date Brea Jj MD [address] [place] [address] PCP - General 12/24/22 documented as of this encounter
--- OUTSIDE RECORDS SUMMARY | 2025-04-30 07:38 | XMS_ITS | Patient Health Record ---
Author Organization [facility] Address [address] [place] [address] Support Name Relationship Address Phone ALIYA CONDON Guarantor Unknown [phone] Reason For Referral No Information Social History [...] Problem Status W/U Status Risk Notes Problem [id number] Primary osteoarthritis of left knee (M17.12) Active confirmed Plan Of Treatment No Information Insurance Providers Payer Name Payer Address Payer Phone Subscriber Number Group Number Insured Name Patient Relationship to Insured Coverage Start Date Coverage End Date Medicaid [place] [place] [address] [facility] [phone] [id number] ALIYA CONDON Self - patient is the insured
--- OUTSIDE RECORDS SUMMARY | 2025-04-30 07:38 | XMS_ITS | Encounter Summary ---
Author Organization [facility] Address [address] [place] [address] Care Team Providers Care Lifter/Driver Name Role Phone Brea Jj MD Primary Care Provider [phone] Reason for Visit * Reason Comments Med Refill Encounter Details Date Type Department Care Team (Late st Contact Info) Description 09/08/2023 Refill [facility] [address] [place] [phone] Toshia Weiner, SOFTWARE CONTROLS ENGINEER [address] [place] [address] Edema, unspecified type; Benign essential [...] extremities documented in this encounter Care Teams Lifter/Driver Relationship Specialty Start Date End Date Brea Jj MD [address] [place] [address] PCP - General 12/24/22 documented as of this encounter
--- OUTSIDE RECORDS SUMMARY | 2025-04-30 07:38 | XMS_ITS | Encounter Summary ---
Author Organization [facility] Address [address] [facility] [place] [address] Care Team Providers Care Practice Performance Manager Name Role Phone Brea Jj ACCOUNTS PAYABLE COORDINATOR Unavailable [phone] Jose M Light MD Primary Care Provider [phone] Brea Jj ACCOUNTS PAYABLE COORDINATOR Unavailable [phone] Tram Crooks REHABILITATION SUPERVISOR Unavailable Diana Stephen REHABILITATION SUPERVISOR Unavailable [phone] Encounter Details Date Type Department Care Team (Late st Contact Info) Description 12/21/2023 Orders Only [facility] [address] [place] [address] Brea Jj NP [address] [place] [address] Social History Tobacco Use Types Packs/Day Years [...] Visit [facility] [address] [place] [address] Brea Jj NP [address] [place] [address] documented as of this encounter Procedures Procedure Name Priority Date/Time Associated Diagnosis Comments ELECTROCARDIOGRAM REPORT Routine 024 10:27 AM EST documented in this encounter Results * Electrocardiogram Report (12/20/2023 10:27 AM EST) us Brea Jj NP IN CLINIC/BEDSIDE ORDERABLES Fi nal Result documented in this encounter Visit Diagnoses Not on filedocumented in this encounter Care Teams Practice Performance Manager Relationship Specialty Start Date End Date Jose M Light MD [address] [place] [phone] PCP - General Family Medicine 10/18/23 Brea Jj NP [address] [place] [address] PCP - [facility] 07/31/24 Brea Jj NP [address] [place] [address] Nurse Practitioner Family Medicine 10/18/23 Tram Crooks, REHABILITATION SUPERVISOR [address] [place] [address] Sap Director Metalworking Instructor 11/14/24 11/15/24 Diana Stephen, SKY [address] [place] [address] Sap Director Family Medicine 11/15/24 11/26/24 documented as of this encounter
--- OUTSIDE RECORDS SUMMARY | 2025-04-30 07:38 | XMS_ITS | Patient Health Record ---
Author Organization [facility] Address [address] [place] [address] Care Team Providers Care Psychiatric Aide Name Role Phone Brea Jj CNP Primary Care Provider Unavail able Calvin Gaines Unavailable [phone] Allergies No Known Allergies Results Component Value Reference Range Notes CT Chest Low Dose for Screen ing* Reviewed date:05/30/2024 08:45:36 AM Interpretation: Performing Lab: Notes/Report: CT lung screening low-dose Reviewed date:05/30/2024 06:26:02 AM Interpretation: Performing Lab: Notes/Report: Source Facility: [place] [address] CT Scan Report Signed Patient: SIS MOORE MR#: [id number] : 1965 Acct:[id number] Age/Sex: 58 / F ADM Date: 05/29/24 Loc: CT Attending Dr: Calvin Gaines D.O. Ordering Physician: Calvin Gaines D.O. Date of Service: 05/29/24 Procedure(s): CT lung screening low-dose Accession Number(s): [id number] cc: Brea Jj NP [place] [address] Patient Name: SIS MOORE MRN: [id number] date: 1965 Sex: F Assigned Patient Location: CT Current Patient Location: CT Accession/Order Number: [id number] Exam Date: 05/29/2024 09:29 Report Date: 05/29/2024 [...] Signed By: 05/29/24 1604 DD/ 1602 TD/TT: Advanced Quality Engineer: [place] [address] CT Scan Report Signed Patient: LITO MOORE MR#: [id number] : 1965 Acct:[id number] Age/Sex: 58 / F ADM Date: 05/29/24 Loc: CT Attending Dr: Calvin Gaines D.O. Ordering Physician: Calvin Gaines D.O. Date of Service: 05/29/24 Procedure(s): CT remi g screening low-dose Accession Number(s): [id number] cc: Brea Jj NP The [address] [address] Patient Name: SIS MOORE MRN: [id number] date: 1965 Sex: F Assigned Patient Location: CT Current Patient Location: CT Accession/Order Numb er: [id number] Exam Date: 05/29/2024 09:29 Report Date: 05/29/2024 [...] Signed By: 05/29/24 160 DD/ 160 TD/TT: Advanced Quality Engineer: Reason For Referral No Information Medications Medication [...] Problem Status W/U Status Risk Notes Problem 829037978 Chronic obstructive pulmonary disease, unspecified (J44.9) Active confirmed Problem 884420778 Obesity, unspecified (E66.9) Active confirmed Problem Chronic respiratory failure (19862973) Chronic respiratory failure with hypoxia (J96.11) Active confirmed Problem Long-term current use of inhaled steroid (845302134) senior living (current) use of inhaled steroids (Z79.51) Active confirmed Problem Pulmonary embolism (60795906) Pulmonary embolism (I26.99) Active confirmed Problem Coronary artery disease (85026381) Coronary artery disease (I25.10) Active confirmed Problem Obstructive sleep apnea (21387794) Obstructive sleep apnea (G47.33) Active confirmed Problem Mental disorder caused by drug (034496462) Cigarette nicotine dependence with nicotine-induced disorder (F17.219) Active confirmed Problem Iron deficiency anemia (65476346) Iron deficiency anemia (D50.9) Active confirmed Problem Type II diabetes mellitus well controlled (401385390) Diabetes mellitus type 2, controlled (E11.9) Active confirmed Problem Paraseptal emphysema (42287107) Paraseptal emphysema (J43.8) Active confirmed Problem 521515716 Encounter for screening for lung cancer (Z12.2) Active confirmed Problem Secondary pulmonary hypertension (13676814) Other secondary pulmonary hypertension (I27.29) Active confirmed Problem History of COVID-19 (041740008509179 105) History of COVID-19 (Z86.16) Active confirmed [...] Encounter Location Date Provider Diagnosis Pulmonary Medicine [place] [address] [place] [address] 08/01/2024 [facility] Chronic respiratory failure with hypoxia J96.11 ; Paraseptal emphysema J43.8 ; Cigarette nicotine dependence with nicotine-induced disorder F17.219 ; Encounter for screening for malignant neoplasm of respiratory organs Z12.2 ; Pulmonary embolism I26.99 ; Obstructive sleep apnea G47.33 ; Diabetes mellitus type 2, controlled E11.9 ; Encounter for therapeutic drug level monitoring Z51.81 ; senior living (current) use of inhaled steroids Z79.51 and Obesity, unspecified E66.9 Pulmonary Medicine [place] [address] [place] [address] 01/30/2025 [facility] Chronic respiratory failure with hypoxia J96.11 ; Paraseptal emphysema J43.8 ; Cigarette nicotine dependence with nicotine-induced disorder F17.219 ; Pulmonary embolism I26.99 ; Obstructive sleep apnea G47.33 ; Diabetes mellitus type 2, controlled E11.9 ; watermaster (current) use of inhaled steroids Z79.51 and Obesity, unspecified E66.[address] [address] 05/30/2024 [facility] Pulmonary Medicine [place] [address] [place] [address] 10/09/2024 [facility] Paraseptal emphysema J43.[address] [address] 01/21/2025 [facility] Pulmonary Medicine [place] [address] [place] [address] 02/19/2025 [facility] Chronic obstructive pulmonary disease with (acute) exacerbation J44.1 Assessments Encounter Date Diagnosis (ICD Code) Assessment Notes Treatment Notes Treatment Clinical Notes Section Notes 08/01/2024 Chronic respiratory failure with hypoxia (ICD-10 - J96.11) Gqat-ol-vaey encounter performed with the patient to document [...] respiratory failure with hypoxia (ICD-10 - J96.11) Fbri-mq-hwyv encounter performed with the patient to document [...] disease with (acute) exacerbation (ICD-10 - J44.1) 08/01/2024 Cigarette nicotine dependence with nicotine-induced disorder (ICD-10 - F17.219) Patient continues to smoke. She is counseled to stop, which she acknowledged. LDCT 05/29/2024 RADS-1. F/U LDCT 1 year. 01/30/2025 Cigarette nicotine dependence with nicotine-induced disorder [...] is due end of April 2025. 01/30/2025 Paraseptal emphysema (ICD-10 - J43.8) It [...] return in 6 months for longitudinal evaluation. Jatr-jj-lbyb encounter performed with the patient to document continued need for a nebulizer with nebulized medications. -Current nebulized medications: DuoNeb -Symptom control: Assists in control when Flovent + Bevespi are not enough, especially during weather changes -Reported side or adverse effects: None -Recommendations: Continue DuoNeb with nebulizer. Refill nebulizer and nebulizer supplies as necessary. 08/01/2024 Encounter for screening for malignant neoplasm [...] to manage diabetes in this situation. 08/01/2024 Diabetes mellitus type 2, controlled (ICD-10 - E11.9) Steroids prescribed for this patient's underlying pulmonary disease can adversely affect blood glucose levels, inducing hyperglycemia and worsening underlying diabetes. The patient is encouraged to follow up with the primary care provider to create a plan to manage diabetes in this situation. 01/30/2025 senior living (current) use of inhaled steroids (ICD-10 - Z79.51) Patient was counseled to rinse & gargle with water after inhaled corticosteroid use. 08/01/2024 Encounter for therapeutic drug level monitoring (ICD-10 - Z51.81) Theophylline level was in therapeutic range @ 11.3. 01/30/2025 Obesity, unspecified (ICD-10 - E66.9) Patient's weight is inducing a restrictive pulmonary physiology. Weight loss indicated: Decrease calories, increase activity. 08/01/2024 watermaster (current) use of inhaled steroids (ICD-10 - Z79.51) Patient was counseled to rinse & gargle with water after inhaled corticosteroid use. 08/01/2024 Obesity, unspecified (ICD-10 - E66.9) Patient's weight is inducing a restrictive pulmonary physiology. Weight loss indicated: Decrease calories, increase activity. 01/30/2025 Other Plan Of Treatment Next Appt Details Provider Name:Calvin Gaines, 07/31/2025 08:30:00 AM, [address] [place], [address], Insurance Providers Payer Name Payer Address Payer Phone Subscriber Number Group Number Insured Name Patient Relationship to Insured Coverage Start Date Coverage End Date [employer] [place] [employer] [address] [place] [address] [id number] Sis Moore Self - patient is the insured 3 Medical (General) History Medical History History ICD Code Paraseptal emphysema J43.8 Chronic respiratory failure with hypoxia J96.11 senior living (current) use of inhaled stero ids Z79.51 [...] deficiency anemia D50.9 Surgical History Surgery Date(Month/Year) Right Foot Surgery Cardiac Catheterization 06/15/2021 tubal ligation section arthroscopic knee surgery-left Hospitalization History Reason Date(Month/Year) Pulmonary embolism 06/16/2023
--- OUTSIDE RECORDS SUMMARY | 2025-04-30 07:38 | XMS_ITS | Encounter Summary ---
Author Organization [facility] Address [address] [facility] [place] [address] Care Team Providers Care Cyber Crime Investigator Name Role Phone Brea Jj LEAD INSPECTOR Unavailable [phone] Jose M Light MD Primary Care Provider [phone] Brea Jj LEAD INSPECTOR Unavailable [phone] Tram Crooks CUFF FOLDER Unavailable Diana Stephen CUFF FOLDER Unavailable [phone] Encounter Details Date Type Department Care Team (Late st Contact Info) Description 04/16/2024 Clinisync Result Encounter [facility] External Department Unsolicited Brea Jj NP [address] [facility] [place] [address] Social History Tobacco Use Types [...] Visit [facility] [address] [place] [address] Brea Jj NP [address] [place] [address] documented as of this encounter Procedures Procedure Name Priority Date/Time Associated Diagnosis Comments MM TOMOSYNTHESIS SCREENING BI 04/16/2024 3:04 PM EDT documented in this encounter Results * MM TOMOSYNTHESIS SCREENING BI (04/16/2024 3:04 PM EDT) Anatomical Region Laterality Modality Other 04/16/2024 3:04 PM EDT Narrative 04/16/2024 3:05 [place] [address] Mammography Report Signed Patient: SIS MOORE MR#: [id number] : 1965 Acct:[id number] Age/Sex: 58 / F ADM Date: 04/16/24 Loc: MAMMO Attending Dr: Brea Jj NP Ordering Physician: Brea Jj NP Results: Date of Service: 04/16/24 Follow Up: Procedure(s): MM tomosynthesis screening BI Accession Number(s): [id number] cc: Brea Jj NP Patient Name: SIS MOORE MR#: [id number] : 1965 Exam Date: 04/16/2024 Ordering Doctor: ENRIQUE Jj JUMPBASTING CANVAS BASTER RADIOLOGY REPORT PROCEDURE: MM TOMOSYNTHESIS SCREENING BI [...] Treatments None Family Cancers None LOCATION: [facility] BREAST COMPOSITION: The breasts are almost entirely [...] Signed By: 04/16/24 1505 DD/ 1504 TD/TT: Cloth Washer: Procedure Note Radiology, Radiologist, MD - 04/16/2024 [place] [address] Mammography Report Signed Patient: SIS MOORE JMR#: [id number] : 1965Acct:[id number] Age/Sex: 58 / FADM Date: 04/16/24 Loc: MAMMO Attending Dr: Brea Jj NP Ordering Physician: Brea Jj NPResults: Date of Service: 04/16/24Follow Up: Procedure(s): MM tomosynthesis screening BI Accession Number(s): [id number] cc: Brea Jj NP Patient Name: SIS MOORE MR#: [id number] : 1965 Exam Date: 04/16/2024 Ordering Doctor: ENRIQUE Jj CNP RADIOLOGY REPORT PROCEDURE: MM TOMOSYNTHESIS SCREENING BI COMPARISON: MM TOMOSYNTHESIS SCREENING BI, 04/14/2023. MG MAMM [id number] EMY CAD, 04/30/2022. MG MAMM SCREEN 3D EMY CAD, 04/29/2021. MG MAMM BILSCRN W CAD DIG, 09/05/2007. INDICATIONS: Screening Calculator Name NCI Breast Cancer Risk Assessment Tool 5 Year Breast Cancer Risk 0.90% Lifetime Breast Cancer Risk 5.00% Personal Breast Cancer No Personal Ovarian Cancer No Treatments None Family Cancers None LOCATION: [facility] BREAST COMPOSITION: The breasts are almost entirely [...] M.D. Signed By:04/16/24 1505 DD/ 1504 TD/TT: Cloth Washer: Brea Jj NP [facility] Final Result documented in this encounter Visit Diagnoses Not on filedocumented in this encounter Care Teams Cyber Crime Investigator Relationship Specialty Start Date End Date Jose M Light MD [address] [place] [address] PCP - General Family Medicine 10/18/23 Brea Jj NP [address] [place] [address] PCP - [facility] 07/31/24 Brea Jj NP [address] [place] [address] Nurse Practitioner Family Medicine 10/18/23 Tram Crooks [place] [address] [place] [address] Telephone Answering Service Operator Tax Advisor 11/14/24 11/15/24 Diana Stephen, SKY [address] [place] [address] Telephone Answering Service Operator Family Medicine 11/15/24 11/26/24 documented as of this encounter
--- OUTSIDE RECORDS SUMMARY | 2025-04-30 07:38 | XMS_ITS | Encounter Summary ---
Author Organization [facility] Address [address] [facility] [place] [address] Care Team Providers Care Mailhouse Operator Name Role Phone Brea Jj APPLICATIONS SUPPORT LEAD Unavailable [phone] Jose M Light MD Primary Care Provider [phone] Brea Jj APPLICATIONS SUPPORT LEAD Unavailable [phone] Tram Crooks JIGMAN Unavailable Diana Stephen JIGMAN Unavailable Encounter Details Date Type Department Care Team (Late st Contact Info) Description 01/16/2024 Orders Only [facility] [address] [place] [address] Brea Jj NP [address] [place] [address] Social History Tobacco Use Types Packs/Day Years [...] Office Visit [facility] [address] [place] [address] Brea Jj NP [address] [place] [address] documented as of this encounter Procedures Procedure [...] on filedocumented in this encounter Care Teams Mailhouse Operator Relationship Specialty Start Date End Date Jose M Light MD [address] [place] [address] PCP - General Family Medicine 10/18/23 Brea Jj NP [address] [place] [address] PCP - [facility] 07/31/24 Brea Jj NP [address] [place] [address] Nurse Practitioner Family Medicine 10/18/23 Tram Crooks, JIGMAN [address] [place] [address] Digital Communications Manager Conservation Biology Professor 11/14/24 11/15/24 Diana Setphen, [facility] [address], [place] [id number] Digital Communications Manager Family Medicine 11/15/24 11/26/24 documented as of this encounter
--- OUTSIDE RECORDS SUMMARY | 2025-04-30 07:38 | XMS_ITS | Encounter Summary ---
Author Organization [facility] Address [address] [place] [address] Care Team Providers Care Herbarium Curator Name Role Phone Brea Jj MD Primary Care Provider Reason for Visit * Reason Comments Med Refill Encounter Details Date Type Department Care Team (Late st Contact Info) Description 06/09/2023 Refill [facility] [address] [place] [phone] Marlene Soto MD [address] [facility] [address] [facility] [place] [phone] Edema, unspecified type; Benign essential HTN; Coronary-myocardial [...] extremities documented in this encounter Care Teams Herbarium Curator Relationship Specialty Start Date End Date Brea Jj MD [address] [place] [address] PCP - General 12/24/22 documented as of this encounter
--- OUTSIDE RECORDS SUMMARY | 2025-04-30 07:38 | XMS_ITS | Encounter Summary ---
Author Organization [facility] Address [address] [facility] [place] [address] Care Team Providers Care Gas Welder Apprentice Name Role Phone Brea Jj ALMOND BLANCHER Unavailable [phone] Jose M Light MD Primary Care Provider [phone] Brea Jj ALMOND BLANCHER Unavailable [phone] Tram Crooks AMBULANCE MECHANIC Unavailable Diana Stephen AMBULANCE MECHANIC Unavailable [phone] Encounter Details Date Type Department Care [...] [facility] [address] [place] [address] Brea Jj NP [address] [place] [address] documented as of this encounter Procedures Procedure Name Priority Date/Time Associated Diagnosis Comments RT PULMONARY FUNCTION TEST 02/13/2024 9:14 AM EDT documented in this encounter Results * RT PULMONARY FUNCTION TEST (02/13/2024 9:14 AM EDT) Anatomical Region Laterality Modality Other 02/13/2024 9:14 AM EDT Narrative 02/15/2024 7:11 [place] [address] Respiratory Report Signed Patient: SIS MOORE MR#: [id number] : 1965 Acct:[id number] Age/Sex: 58 / F ADM Date: 02/13/24 Loc: LAB Attending Dr: Calvin Russo D.O. Ordering Physician: Calvin Russo D.O. Date of Service: 02/13/24 Procedure(s): RT pulmonary function test Accession Number(s): [id number] cc: [facility] Test Date: 2024-02-13 Pat Name: SIS MOORE Department: Room: - Gender: Female Production Supply Equipment Tender: Gerald Caputo RRT : 1965 Requested By: Calvin Russo Order Number: [id number] Reading MD: Calvin Russo Interpretive Statements Pulmonary function testing was completed according to ATS criteria. Findings were considered accurate and reproducible. Both pre- and post-bronchodilator values utilized for spirometry. Spirometry (based on pre-bronchodilator values): -FEV1/FVC: Normal @ 77% -FEV1: Moderately reduced @ 54% -FVC: Severely reduced @ 54% -WJB27-67%: Reduced @ 47% -There is a partial [...] Signed By: 02/15/24 0711 DD/ 0914 TD/TT: Farm Hand: Procedure Note Radiology, Radiologist, MD - 02/15/2024 [place] [address] Respiratory Report Signed Patient: SIS MOORE R#: [id number] : 1965Acct:[id number] Age/Sex: 58 / FADM Date: 02/13/24 Loc: LAB Attending Dr: Calvin Russo D.O. Ordering Physician: Calvin Russo D.O. Date of Service: 02/13/24 Procedure(s): RT pulmonary function test Accession Number(s): [id number] cc: [facility] Test Date: 2024-02-13 Pat Name: SIS MOORE Department: Room: - Gender: Female Production Supply Equipment Tender: Gerald Caputo RRT : 1965 Requested By: Calvin Russo Order Number: [id number] Reading MD: Calvin Russo Interpretive Statements Pulmonary function testing was completed according to ATS criteria.Findings were considered accurate and reproducible. Both pre- andpost-bronchodilator values utilized for spirometry. Spirometry (based on pre-bronchodilator values): -FEV1/FVC: Normal @ 77% -FEV1: Moderately reduced @ 54% -FVC: Severely reduced @ 54% -INP80-41%: Reduced @ 47% -There is a partial [...] D.O. Signed By:02/15/24 0711 DD/ 0914 TD/TT: Farm Hand: us Generic External Data Provider [facility] Final Result documented in this encounter Visit Diagnoses Not on filedocumented in this encounter Care Teams Gas Welder Apprentice Relationship Specialty Start Date End Date Jose M Light MD [address] [place] [address] PCP - General Family Medicine 10/18/23 Brea Jj NP [address] [place] [address] PCP - [facility] 07/31/24 Brea Jj NP [address] [place] [address] Nurse Practitioner Family Medicine 10/18/23 [place] [address] [place] [address] Hot Roll Inspector Investigation Clerk 11/14/24 11/15/24 Diana Stephen LSW [address] [place] [address] Hot Roll Inspector Family Medicine 11/15/24 11/26/24 documented as of this encounter
--- OUTSIDE RECORDS SUMMARY | 2025-04-30 07:38 | XMS_ITS | Encounter Summary ---
Author Organization [facility] Address [address] [facility] [place] [address] Care Team Providers Care Water Safety Teacher Name Role Phone Brea Jj MELTER OPERATOR Unavailable [phone] Jose M Light MD Primary Care Provider [phone] Brea Jj NP Unavailable [phone] Encounter Details Date Type Department Care Team (Late st Contact Info) Description 04/17/2025 Clinisync Result Encounter [facility] External Department Unsolicited Brea Jj NP [address] [place] [address] Social History Tobacco Use Types Packs/Day Years [...] Office Visit [facility] [address] [place] [address] Brea Jj NP [address] [place] [address] documented as of this encounter Procedures Procedure Name Priority Date/Time Associated Diagnosis Comments MM TOMOSYNTHESIS SCREENING BI 04/17/2025 4:38 PM EDT documented in this encounter Results * MM TOMOSYNTHESIS SCREENING BI (04/17/2025 4:38 PM EDT) Anatomical Region Laterality Modality Other 04/17/2025 4:38 PM EDT Narrative 04/17/2025 4:39 [place] [address] Mammography Report Signed Patient: SIS MOORE MR#: [id number] : 1965 Acct:[id number] Age/Sex: 59 / F ADM Date: 04/17/25 Loc: MAMMO Attending Dr: Brea Jj NP Ordering Physician: Brea Jj NP Results: Date of Service: 04/17/25 Follow Up: Procedure(s): MM tomosynthesis screening BI Accession Number(s): [id number] cc: Brea Jj NP Patient Name: SIS MOORE MR#: [id number] : 1965 Exam Date: 04/17/2025 Ordering Doctor: ENRIQUE JJ CNP RADIOLOGY REPORT PROCEDURE: MM TOMOSYNTHESIS SCREENING [...] Treatments None Family Cancers None LOCATION: [facility] BREAST COMPOSITION: The breasts are almost [...] Andre M.D. Signed By: 04/17/25 1639 DD/ 1638 TD/TT: Broadcast Meteorologist: Procedure Note Radiology, Radiologist, MD - 04/17/2025 [place] [address] Mammography Report Signed Patient: SIS MOORE JMR#: [id number] : 1965Acct:[id number] Age/Sex: 59 / FADM Date: 04/17/25 Loc: MAMMO Attending Dr: Brea Jj NP Ordering Physician: Brea Jj NPResults: Date of Service: 04/17/25Follow Up: Procedure(s): MM tomosynthesis screening BI Accession Number(s): [id number] cc: Brea Jj NP Patient Name: SIS MOORE MR#: [id number] : 1965 Exam Date: 04/17/2025 Ordering Doctor: ENRIQUE JJ CNP RADIOLOGY REPORT PROCEDURE: MM TOMOSYNTHESIS SCREENING [...] Treatments None Family Cancers None LOCATION: [facility] BREAST COMPOSITION: The breasts are almost [...] 16:38 Dictated By: Malcom Andre M.D. Signed By:04/17/25 1639 DD/ 1638 TD/TT: Broadcast Meteorologist: Brea Jj NP [facility] Final Result documented in this encounter Visit Diagnoses Not on filedocumented in this encounter Care Teams Water Safety Teacher Relationship Specialty Start Date End Date Jose M Light MD [address] [place] [address] PCP - General Family Medicine 10/18/23 Brea Jj NP [address] [place] [address] PCP - [facility] 07/31/24 Brea Jj NP [address] [place] [address] Nurse Practitioner Family Medicine 10/18/23 documented as of this encounter
--- OUTSIDE RECORDS SUMMARY | 2025-04-30 07:39 | XMS_ITS | Encounter Summary ---
Author Organization [facility] Address [address] [facility] [place] [address] Care Team Providers Care Shellfish Processing Laborer Name Role Phone Brea Jj MANAGER CLUB Unavailable [phone] Jose M Light MD Primary Care Provider [phone] Brea Jj MANAGER CLUB Unavailable [phone] Tram Crooks AIRPORT ELECTRICIAN Unavailable Diana Stephen AIRPORT ELECTRICIAN Unavailable [phone] Encounter Details Date Type Department Care [...] [facility] [address] [place] [address] Brea Jj, TOBIAS [address] [place] [address] documented as of this encounter Procedures Procedure Name Priority Date/Time Associated Diagnosis Comments CT LUNG SCREENING LOW DOSE 05/29/2024 4:02 PM EDT documented in this encounter Results * CT LUNG SCREENING LOW DOSE (05/29/2024 4:02 PM EDT) Anatomical Region Laterality Modality Other 05/29/2024 4:02 PM EDT Narrative 05/29/2024 4:04 [place] [address] CT Scan Report Signed Patient: SIS MOORE MR#: [id number] : 1965 Acct:[id number] Age/Sex: 58 / F ADM Date: 05/29/24 Loc: CT Attending Dr: Corrina Gaines D.O. Ordering Physician: Corrina Gaines D.O. Date of Service: 05/29/24 Procedure(s): CT lung screening low-dose Accession Number(s): [id number] cc: Brea Jj NP [address] [id number] Patient Name: SIS MOORE MRN: [id number] date: 1965 Sex: F Assigned Patient Location: CT Current Patient Location: CT Accession/Order Number: [id number] Exam Date: 05/29/2024 09:29 Report Date: 05/29/2024 [...] Signed By: 05/29/24 1604 DD/ 1602 TD/TT: Property Utilization Officer: Procedure Note Radiology, Radiologist, MD - 05/29/[address] [address] [address] Scan Report Signed Patient: SIS MOORE R#: [id number] : 1965Acct:[id number] Age/Sex: 58 / FADM Date: 05/29/24 Loc: CT Attending Dr: Corrina Gaines D.O. Ordering Physician: Corrina Gaines D.O. Date of Service: 05/29/24 Procedure(s): CT lung screening low-dose Accession Number(s): [id number] cc: Brea Jj NP The [address] [address] Patient Name: SIS MOORE MRN: [facility]:[id number] date: 1965 Sex: F Assigned Patient Location: CT Current Patient Location: CT Accession/Order Number: [id number] Exam Date: 05/29/2024 09:29 Report Date: 05/29/2024 [...] M.D. Signed By:05/29/24 1604 DD/ 1602 TD/TT: Property Utilization Officer: us Generic External Data Provider [facility] Final Result documented in this encounter Visit Diagnoses Not on filedocumented in this encounter Care Teams Shellfish Processing Laborer Relationship Specialty Start Date End Date Jose M Light MD [address] [place] [address] PCP - General Family Medicine 10/18/23 Brea Jj NP [address] [place] [address] [facility] 07/31/24 Brea Jj NP [address] [place] [address] Nurse Practitioner Family Medicine 10/18/23 Tram Crooks, SKY [address] [place] [address] Criminal Research Specialist Cheesemaking Laborer 11/14/24 11/15/24 Diana Stephen, SKY [address] [facility] [place] [address] Criminal Research Specialist Family Medicine 11/15/24 11/26/24 documented as of this encounter
--- OUTSIDE RECORDS SUMMARY | 2025-04-30 07:39 | XMS_ITS | Encounter Summary ---
Author Organization [facility] Address [address] [place] [address] Care Team Providers Care Supervisor Fabrication Department Name Role Phone Brea Jj MD Primary Care Provider [phone] Reason for Visit * Reason Comments Med Refill Encounter Details Date Type Department Care Team (Late st Contact Info) Description 12/08/2023 Refill [facility] [address] [place] [phone] Marlene Soto MD [address] [facility] [address] [facility] [place] [phone] Edema, unspecified type Social History Tobacco Use [...] type documented in this encounter Care Teams Supervisor Fabrication Department Relationship Specialty Start Date End Date Brea Jj MD [address] [place] [address] PCP - General 12/24/22 documented as of this encounter
--- NOTE | 2025-04-30 08:00 | CA_ITS ---
Patient Name: ALIYA CONDON MR#: [id number] : 1965 Exam Date: 04/30/2025 Ordering Doctor: DR JEROME GAVIRIA M.D. ECHOCARDIOGRAM REPORT PROCEDURE: CA ECHO DOPPLER COMPLETE INDICATIONS: Dyspnea on exertion, coronary-myocardial bridge, smoker, COPD, h/o pulmonary embolism, hypertension COMPARISON: None. DESCRIPTION: COMPLETE ECHOCARDIOGRAM Real-time transthoracic echocardiography with 2D, M-mode, spectral and color flow Doppler performed. QUALITY: Technical quality was good. LEFT VENTRICLE: Left ventricle cavity size is at upper limit of normal. Mild concentric left ventricular hypertrophy. Left ventricle systolic function is normal without wall motion abnormalities, ejection fraction 50 to 55% LV EF: Normal 50 to 55% DIASTOLIC: Normal diastolic function ATRIAL SEPTUM: Appears intact LEFT ATRIUM: Normal chamber size. RIGHT ATRIUM: Normal chamber size. RIGHT VENTRICLE: Normal chamber size. Normal right ventricular systolic function. TRICUSPID VALVE: Normal mobility and thickness. No stenosis with trivial regurgitation. Cannot evaluate pulmonary arterial pressure due to the lack of adequate tricuspid regurgitation signal MITRAL VALVE: Normal mobility and thickness. No evidence of mitral valve stenosis. There is no mitral annular calcification. No mitral regurgitation. AORTIC VALVE: Normal trileaflet appearance. No visible sclerosis. Normal leaflet mobility. No evidence of aortic valve stenosis. No aortic regurgitation. AORTIC ROOT: Normal diameter and appearance. Ascending aorta is normal in size. PULMONIC VALVE: Normal thickness and mobility. No stenosis. Trivial regurgitation. PERICARDIUM: No evidence of pericardial effusion. IVC: Collapes with inspirations. IVC is normal in size PLEURA: CONCLUSION: Mild concentric left ventricle hypertrophy Left ventricle cavity size at upper limit of normal Normal left ventricle systolic function without wall motion abnormalities, ejection fraction 50 to 55% Normal left ventricular diastolic function Normal right ventricular size and systolic function No significant valvular abnormalities Adult Echocardiography Procedure Report Left Ventricle LVEDD (3.7 - 5.6 cm): 5.28 cm LVESD (2.2 - 4.0 cm): 4.03 cm LVIVS thickness (0.6 - 1.2 cm): 1.15 cm LVPW thickness (0.5 - 1.0 cm): 1.07 cm e': 0.07 m/s E - e': 8.88 LVOT Max Gradient: 5.90 mm[Hg] LVOT Area (cm2): 1.21 m/s Peak Velocity (LVOT): 1.21 m/s LVOT Diameter 2.34 cm Left Ventricular Ejection Fraction: 44.64 % Left Atrium LA Volume Index (2D A2C): 29.11 ml/m2 Left Atrium Systolic Dimension: 4.59 cm Mitral Valve MV E to A Ratio: 0.81 Mitral Valve A-Wave Peak Velocity: 0.82 m/s Mitral Valve E-Wave Peak Velocity: 0.67 m/s Right Ventricle Aorta AO Root Diam: 3.05 cm Ascending Ao Diam: 2.78 cm Aortic Valve AoV Area (Peak Cabrera): 3.37 cm2, 3.37 cm2 Peak Velocity(Antegrade Flow): 1.55 m/s Peak Gradient(Antegrade Flow): 9.64 mm[Hg] Tricuspid Valve Pulmonic Valve Peak Gradient: 6.21 mm[Hg], 6.04 mm[Hg] Right Atrium Right Atrium Systolic Pressure: 46.59 ml, 46.59 ml Dictated by: Jose Alfredo Hill MD on 04/30/2025 at 14:05 Approved by: Jose Alfredo Hill MD on 04/30/2025 at 14:11
== END 2025-04-30 07:36 | disposition home or self-care (01) ==
LOC: CARD 07:36
PROVIDERS: PCP Nurse Practitioner; Visit Provider Internal Medicine Interventional Cardiology
DX: Q24.5 Malformation of coronary vessels (principal); R06.09 Other forms of dyspnea
CPT/HCPCS: 93306

== ENCOUNTER 2025-05-28 09:55 | Outpatient (OUT) | payer OTHER, SELFPAY ==
--- OUTSIDE RECORDS SUMMARY | 2025-01-30 04:30 | XMS_ITS ---
Author Organization [facility] in [place] Address [address] [place] [address] Care Team Providers Care Departure Clerk Name Role Phone Brea Jj CNP Primary Care Provider Unavail able DonaldCalvin Unavailable [phone] Allergies No Known Allergies REASON FOR VISIT [...] Ex-light c igarette smoker (1-9/day) Vital Signs Weight 258.4 lbs 01/30/2025 Height 69 in 01/30/2025 Blood pressure systolic 145 mm Hg 01/31/20 25 Blood pressure diastolic 73 mm Hg 025 Temperature 96.8 degrees Fahrenheit 01/31/20 25 Heart Rate 93 /min 01/30/2025 Respiratory Rate 20 /min 01/30/2025 BMI 38.15 kg/m2 01/30/2025 Oximetry 94 % 01/30/2025 Procedures Procedure Date Ordered Date Performed Result Body Sit e Six minute walk 01/30/2025 02/15/2025 N/A Encounters Encounter Location Date Provider Diagnosis [facility] [place] [address] [place] [address] 01/30/2025 Calvin Russo Chronic respiratory failure with hypoxia J96.11 ; Paraseptal emphysema J43.8 ; Cigarette nicotine dependence with nicotine-induced disorder F17.219 ; Pulmonary embolism I26.99 ; Obstructive sleep apnea G47.33 ; Diabetes mellitus type 2, controlled E11.9 ; group home (current) use of inhaled steroids Z79.51 and Obesity, unspecified E66.9 Assessments Encounter Date Diagnosis (ICD Code) Assessment Notes Treatment Notes Treatment Clinical Notes Section Notes 01/30/2025 Chronic respiratory failure with hypoxia (ICD-10 - J96.11) Ihto-yo-uuow encounter performed with the patient to document [...] return in 6 months for longitudinal evaluation. Chzj-pi-btni encounter performed with the patient to document [...] to manage diabetes in this situation. 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 Mpip-os-icbl encounter performed with the patient to document [...] plan to manage diabetes in this situation. remote computer terminal operator (current) use of i nhaled steroids Patient was counseled to rinse & gargle with water after inhaled corticosteroid use. Obesity, unspecified Patient's weight is inducing a restrictive pulmonary physiology. Weight loss indicated: Decrease calories, increase activity. Next Appt Details Follow Up: 6 Months, Reason: COPD, O2 Procedure Notes * Category Sub-Category Detail Notes PFT Data: 02/13/2024-FEV1/F VC: 77%-FEV1: 54%-FVC: 54%-Bronchodilator response: Partial-RV: 107%-T%-DLCO: 60%-Flow-volume loop: Moderate restriction02/01/2023-FEV1/FVC: 80%-FEV1: 52%-FVC: 51%-Bronchodilator response: None-RV: 89%-T%-DLCO: 49%-Flow-volume loop: Moderate restriction03/13/2021-FEV1/FVC: 75%-FEV1: 48%-FVC: 50%-Bronchodilator response: None-RV: 114%-T%-DLCO: 59%-Flow-volume loop: Moderate nykcuqscdmd06/7/2019-FEV1/FVC: 76%-FEV1: 53%-FEV1: 55%-Bronchodilator response: none-RV: 136%-T%-DLCO:79%-FeNO: 8-Slqn-toyyzi loop: Moderate restriction06/10/2016-FEV1/FVC: 72%-FEV1: 57%-FVC: 63%-Bronchodilator response: none-RV: 184%-T%-DCO: 81%-Flow-volume loop: Moderate restriction with obstructive pattern Alpha-1 Antitrypsin Screening Date: 03/04/2021 Genotype: MM Progress Notes * Sis MOOREDOB: [birth year] (59 yo F)Acc No.[id number]:01/30/2025 Follow Up Patient: Sis TORRES Provider: Ruthann Russo DO :1965 A ge:59 Y S ex:Female Date:01/30/2025 Address:[address] [place] [address] , [place], [id number] Pcp:Brea Jj, RN HEMODIALYSIS CHARGE Check In:08:13 AM ESTCheck Sol ut:08:52 AM EST Subjective: * Chief Complaints: [...] to the rapid weather changes here in [place]. She continues to use supplemental O2 with benefit with activity. She quit smoking again, 2 days ago. She has been having some diarrhea along with N/V. She saw Dr. Eddy @ [facility]. There are plans for colonoscopy, but patient [...] nervous. Patient is under the care of [facility] Cardiology & [facility] Hematology. * ROS: G eneral/Constitutional: Fever or [...] J96.11 Chronic respiratory failure with hypoxia Modified On:02/01/2024U Status:confirmed Z79.51 group home (current) use of inhaled steroids Modified On:02/01/2024U Status:confirmed I26.99 Pulmonary embolism Modified On:02/01/2024U Status:confirmed I25.10 Coronary artery dise ase Modified On:02/01/2024U Status:confirmed G47.33 Obstructive sleep ap aleida Modified On:02/01/2024U Status:confirmed F17.219 Cigarette nicotine d ependence with nicotine-induced disorder Modified On:02/01/2024U Status:confirmed D50.9 Iron deficiency anem ia Modified On:02/01/2024U Status:confirmed E11.9 Diabetes mellitus ty pe 2, controlled Modified On:02/01/2024U Status:confirmed J43.8 Paraseptal emphysema Modified On:08/01/2024U Status:confirmed 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 Modified On:02/01/2024/U Status:confirmed Z86.16 History of COVID-19 Modified On:02/01/2024/U Status:confirmed Z12.2 Encounter for screen ing for lung cancer Modified On:02/03/2023/U Status:confirmed E66.9 Obesity, unspecified Modified On:02/01/2024/U Status:confirmed J44.9 Chronic obstructive pulmonary disease, unspecified Modified On:02/16/2024/U Status:confirmed * Medical History: * Surgical History: [...] hypoxia P rocedure: Six minute walk Notes: Itcx-em-ytxd encounter performed with the patient to document [...] 01/30/2025 Cessation counseling provided 0 01/30/2025 B [place] ACTION PLAN Above Normal BMI Follow-up D ietary management education, guidance, and counseling * Follow Up: 6 Months (Reason: COPD, O2) * * Sign off status: Completed Visit Status: C HK (Check Out) true * Provider: Ruthann Russo DO Date: 0 01/30/2025 Generated for Joe landers/Angelica/Jamessmitting on: 0 05/28/2025 10:01 AM EDT History and Physical Notes * [...] nervous. Patient is under the care of [facility] Cardiology & [facility] Hematology. Examination Category Sub-Category Detail Notes Category Not es Exam GENERAL APPEARANCE: In no acute distress Skin Normal Mouth [place] and moist. Dodie tulous. No oral candidiasis [...]
--- OUTSIDE RECORDS SUMMARY | 2025-02-19 04:52 | XMS_ITS ---
Author Organization [facility] in [place] Address [address] [place] [address] Care Team Providers Care Bioinformatics Assistant Name Role Phone Brea Jj CNP Primary Care Provider Unavail able Calvin Russo Unavailable [phone] REASON FOR VISIT SOB Medications Medication SIG (Take, Route, Fr equency, Duration) Notes Start Date End Date Status predniSONE 20 MG 3 tabs x 3 days, 2 t abs x 3 days, 1 tab x 3 days Orally Once a day for 9 days 02/19/2025 Active Encounters Encounter Location Date Provider Diagnosis Pulmonary Medicine [address] [address] 02/19/2025 Calvin Russo Chronic obstructive pulmonary disease [...] * Sis MOOREDOB: [birth year] (59 yo F)Acc No.[id number]:02/19/2025 Patient: Sis TORRES :1965 A ge:59 Y S ex:Female Address:[address] [place] [address] , [place] [address] * Refills Start predniSONE Tablet, 20 MG, [...] Date: Generated for Joe landers/Angelica/Ofeliaitting on: 0 05/28/2025 06:11 AM EDT
--- OUTSIDE RECORDS SUMMARY | 2025-05-14 11:19 | XMS_ITS ---
Author Organization [facility] in [place] Address [address] [place] [address] Care Team Providers Care Workers Compensation Defense Attorney Name Role Phone Angelyheatherlloyd NUNEZBrea Primary Care Provider Unavail able Calvin Russo Unavailable [phone] REASON FOR VISIT Appointment/Letter Medications Medication SIG [...] Encounter Location Date Provider Diagnosis Pulmonary [facility] [place] [address] [place] [address] 05/14/2025 Calvin Russo Paraseptal emphysema J43.8 Assessments [...] * Sis MOOREDOB: [birth year] (59 yo F)Acc No.[id number]:05/14/2025 Patient: Pam Sis FERRARI :1965 A ge:59 Y S ex:Female Address:[address] [place] [address] , [place], [address] * Refills Refill Albuterol Sulfate HFA Aerosol [...] * Date: Generated for Joe landers/Angelica/Ofeliaitting on: 05/28/2025 10:01 AM EDT
--- OUTSIDE RECORDS SUMMARY | 2025-05-28 09:00 | XMS_ITS | Encounter Summary ---
Author Organization [facility] Address [address] [facility] [place] [address] Care Team Providers Care Broadcaster Name Role Phone Brea Jj PLANT DIRECTOR Unavailable [phone] Jose M Light MD Primary Care Provider [phone] Brea Jj PLANT DIRECTOR Unavailable [phone] Reason for Visit * Reason Comments Diabetes Encounter Details Date Type Department Care Team (Late st Contact Info) Description 05/28/2025 9:00 AM EDT [facility] [address] [place] [address] Brea Jj NP [address] [place] [address] Restless leg syndrome (Primary Dx); ROLANDO (obstructive sleep apnea); Essential (primary) hypertension ; Gastroesophageal reflux disease without esophagitis; Edema of both lower extremities; Type 2 diabetes mellitus without complication, without long-term current use of insulin (HCC); Class 2 severe obesity due to excess calories with serious comorbidity and body mass index (BMI) of 37.0 to 37.9 in adult ([facility]); Mixed hyperlipidemia ; Anxiety and depression ; [...] excess calories with serious comorbidity in adult ([facility]) Discussed with patient their BMI (actual, verses recommended). We have also discussed lifestyle modifications: attempts to perform physical activity as chronic conditions allow, also to monitor dietary intake: increasing protein/fruits/veggies and lowering carb intake (unless contraindicated). Limit sodas, juices, and sugary drinks. * Brea Jj NP - 05/28/2025 6:18 AM EDTAssociated Problem(s): Type 2 diabetes mellitus without complication, without long-term current useof insulin ([facility]) Check blood sugars daily, notify if <70 [...] Visit [facility] [address] [place] [address] Brea Jj, TOBIAS [address] [place] [address] Scheduled Orders Name Type Priority Associated Diagnoses [...] specimen / Unknown 05/28/2025 9:15 AM EDT Brea Jj PLANT DIRECTOR POINT OF CARE TEST ENTER/EDIT O RDERABLES Final Result documented in this encounter Visit Diagnoses Diagnosis Restless leg syndrome- Primary Restless legs syndrome (RLS) ROLANDO (obstructive sleep apnea) Obstructive sleep apnea (adult) (pediatric) Essential (primary) hypertension Unspecified essential hypertension Gastroesophageal reflux disease without esophagitis Esophageal reflux Edema of both lower extremities Type 2 diabetes mellitus without complication, without long-term current use of insulin ([facility]) Class 2 severe obesity due to excess calories with serious comorbidity and body mass index (BMI) of 37.0 to 37.9 in adult ([facility]) Mixed hyperlipidemia Mixed hyperlipidemia Anxiety and depression Primary hypertension Unspecified essential hypertension Vomiting and diarrhea documented in this encounter Care Teams Broadcaster Relationship Specialty Start Date End Date Jose M Light MD [address] [place] [address] PCP - General Family Medicine 10/18/23 Brea Jj NP [address] [place] [address] PCP - [facility] 07/31/24 Brea Jj NP [address] [place] [address] Nurse Practitioner Family Medicine 10/18/23 documented as of this encounter
--- OUTSIDE RECORDS SUMMARY | 2025-05-28 10:02 | XMS_ITS | Encounter Summary ---
Author Organization [facility] Address [address] [facility] [place] [address] Care Team Providers Care Wirer Street Light Name Role Phone Brea Jj JOINER APPRENTICE Unavailable [phone] Jose M Light MD Primary Care Provider [phone] Brea Jj JOINER APPRENTICE Unavailable [phone] Tram Crooks HANDLE SEWER Unavailable Diana Stephen HANDLE SEWER Unavailable [phone] Encounter Details Date Type Department Care Team (Late st Contact Info) Description 12/21/2023 Orders Only [facility] [address] [place] [address] Brea Jj NP [address] [place] [address] Social History Tobacco Use Types Packs/Day Years [...] 08/28/2025 9:00 AM EDT Office Visit [facility] [address] [place] [address] Brea Jj NP [address] [place] [address] documented as of this encounter Procedures Procedure Name Priority Date/Time Associated Diagnosis Comments ELECTROCARDIOGRAM REPORT Routine 024 10:27 AM EST documented in this encounter Results * Electrocardiogram Report (12/20/2023 10:27 AM EST) us Brea Jj NP IN CLINIC/BEDSIDE ORDERABLES Fi nal Result documented in this encounter Visit Diagnoses Not on filedocumented in this encounter Care Teams Wirer Street Light Relationship Specialty Start Date End Date Jose M Light MD [address] [place] [id number] PCP - General Family Medicine 10/18/23 Brea Jj NP [address] [place] [id number] PCP - [facility] 07/31/24 Brea Jj NP [address] [place] [address] Nurse Practitioner Family Medicine 10/18/23 Tram Crooks, HANDLE SEWER [address] [place] [address] Immigration Associate Hourly Shift Manager 11/14/24 11/15/24 Diana Stephen, SK[employer] [address] [place] [address] Immigration Associate Family Medicine 11/15/24 11/26/24 documented as of this encounter
--- OUTSIDE RECORDS SUMMARY | 2025-05-28 10:02 | XMS_ITS | Encounter Summary ---
Author Organization [facility] Address [address] [facility] [place] [address] Care Team Providers Care Computer Repair Technician Name Role Phone Brea Jj DIRECTOR OF CLINICAL EDUCATION Unavailable [phone] Jose M Light MD Primary Care Provider [phone] Brea Jj DIRECTOR OF CLINICAL EDUCATION Unavailable [phone] Tram Crooks SIGN CARPENTER Unavailable Diana Stephen SIGN CARPENTER Unavailable Encounter Details Date Type Department Care Team (Late st Contact Info) Description 01/16/2024 Orders Only [facility] [address] [place] [address] Brea Jj NP [address] [place] [address] Social History Tobacco Use Types Packs/Day Years [...] Office Visit [facility] [address] [place] [address] Brea Jj NP [address] [place] [address] documented as of this encounter Procedures Procedure [...] on filedocumented in this encounter Care Teams Computer Repair Technician Relationship Specialty Start Date End Date Jose M Light MD [address] [place] [address] PCP - General Family Medicine 10/18/23 Brea Jj NP [address] [place] [address] PCP - [facility] 07/31/24 Brea Jj NP [address] [place] [address] Nurse Practitioner Family Medicine 10/18/23 Tram Crooks, SIGN CARPENTER [address] [place] [address] Geography Instructor Assembler Movement 11/14/24 11/15/24 Diana Stephen, [facility] [address], [place] [id number] Geography Instructor Family Medicine 11/15/24 11/26/24 documented as of this encounter
--- OUTSIDE RECORDS SUMMARY | 2025-05-28 10:02 | XMS_ITS | Clinical Summary ---
Author Organization [facility] Address [address] [facility] [place] [address] Care Team Providers Care Pattern Chain Maker Supervisor Name Role Phone Brea Jj MACHINE ROOM OPERATOR Unavailable [phone] Jose M Light MD Primary Care Provider [phone] Brea Jj MACHINE ROOM OPERATOR Unavailable [phone] Allergies No known active allergies Medications [...] needed for nausea or vomiting 024 Active fluocinonide (Lidex) 0.05 % creamIndications: Other atopic dermatitis Apply thin layer (1 g) to lower legs, up to twice a day when flared, do not use one the face, groin, or underarms, 30 day supply 80 g 11 Active predniSONE (Deltasone) 20 MG tablet TAKE [...] a day as needed for cough Active clonazePAM (KlonoPIN) 0.5 MG tabletIndications :Anxiety and depression,Restle ss leg syndrome,Other insomnia TAKE 1 TABLET (0.5 MG) BY MOUTH AT BEDTIME 30 tablet 2 025 2024 Active Multiple Vitamin (Multivitamin) tablet Take 1 tablet by mouth Daily Active metoprolol succinate XL (Toprol-XL) 25 MG 24 hr tablet Take 25 mg by mouth Daily Active doxepin (SINEquan) 10 MG capsule Take 10 mg by mouth at bedtime Active Calcium Carb-Cholecalcife rol 600-5 MG-MCG tablet Take 1 tablet by mouth in the morning and 1 tablet before bedtime. Active aspirin (Aspirin Low Dose) 81 MG EC tabletIndications :Essential (primary) hypertension,Type 2 diabetes mellitus without complication, without long-term current use of insulin (HCC) Take 1 tablet (81 mg) by mouth Daily 30 tablet 5 025 2024 Active atorvastatin (Lipitor) 40 MG tabletIndications :Mixed hyperlipidemia Take 1 tablet (40 mg) by mouth at bedtime 30 tablet 5 025 2024 Active busPIRone (Buspar) 15 MG tabletIndications :Anxiety and depression Take 1 tablet (15 mg) by mouth in the morning and 1 tablet (15 mg) before bedtime. 60 tablet 2024 Active DULoxetine (Cymbalta) [address] capsuleIndication s:Anxiety and depression Take 1 capsule (60 mg) by mouth Daily 30 capsule 2024 Active furosemide (Lasix) 20 MG tabletIndications :Edema of both lower extremities Take 1 tablet (20 mg) by mouth Daily 30 tablet 2024 Active gabapentin (Neurontin) 300 MG capsuleIndication s:Restless leg syndrome Take 1 capsule (300 mg) by mouth Daily 30 capsule 2024 Active lisinopril-hydroC HLOROthiazide 20-25 MG tabletIndications :Primary hypertension Take 1 tablet by mouth Daily 30 tablet 2024 Active pantoprazole (ProtoNix) 40 MG EC tabletIndications :Gastroesophageal reflux disease without esophagitis Take 1 tablet (40 mg) by mouth in the morning. Take before meals. Do not crush, chew, or split. 30 tablet 2024 Active pioglitazone (Actos) 15 MG tabletIndications :Type 2 diabetes mellitus without complication, without long-term current use of insulin (HCC) Take 1 tablet (15 mg) by mouth Daily 30 tablet 2024 Active pramipexole (Mirapex) 0.5 MG tabletIndications :Restless leg syndrome Take 1 tablet (0.5 mg) by mouth at bedtime 30 tablet 2024 Active potassium chloride CR (Klor-Con) 10 MEQ ER tabletIndications :Edema of both lower extremities Take 1 tablet (10 mEq) by mouth Daily 30 tablet 2024 Active lamoTRIgine (LaMICtal) 25 MG tabletIndications :Anxiety and depression Take 2 tablets (50 mg) by mouth at bedtime 60 tablet 2024 Active Aspirin Low Dose 81 MG EC tablet Take 81 mg by mouth Daily 2024 Discontinued(R eorder) DULoxetine (Cymbalta) [address] capsuleIndication s:Anxiety and depression Take 1 capsule (60 mg) by mouth Daily 30 capsule 2024 Discontinued(R eorder) atorvastatin (Lipitor) 40 MG tabletIndications :Mixed hyperlipidemia Take 1 tablet (40 mg) by mouth at bedtime 30 tablet 2024 Discontinued(R eorder) busPIRone (Buspar) 15 MG tabletIndications :Anxiety and depression Take 1 tablet (15 mg) by mouth in the morning and 1 tablet (15 mg) before bedtime. 60 tablet 2024 Discontinued(R eorder) furosemide (Lasix) 20 MG tabletIndications :Edema of both lower extremities Take 1 tablet (20 mg) by mouth Daily 30 tablet 2024 Discontinued(R eorder) gabapentin (Neurontin) 300 MG capsuleIndication s:Restless leg syndrome Take 1 capsule (300 mg) by mouth Daily 30 capsule 2024 Discontinued(R eorder) lisinopril-hydroC HLOROthiazide 20-25 MG tabletIndications :Primary hypertension Take 1 tablet by mouth Daily 30 tablet 2024 Discontinued(R eorder) pantoprazole (ProtoNix) 40 MG EC tabletIndications :Gastroesophageal reflux disease without esophagitis Take 1 tablet (40 mg) by mouth in the morning. Take before meals. Do not crush, chew, or split. 30 tablet 2024 Discontinued(R eorder) pioglitazone (Actos) 15 MG tabletIndications :Type 2 diabetes mellitus without complication, without long-term current use of insulin (HCC) Take 1 tablet (15 mg) by mouth Daily 30 tablet 2024 Discontinued(R eorder) pramipexole (Mirapex) 0.5 MG tabletIndications :Restless leg syndrome Take 1 tablet (0.5 mg) by mouth at bedtime 30 tablet 5 Discontinued(R eorder) lamoTRIgine (LaMICtal) 25 MG tabletIndications :Anxiety and depression Take 2 tablets (50 mg) by mouth at bedtime 60 tablet 5 025 2024 Discontinued(R eorder) clonazePAM (KlonoPIN) 0.5 MG tabletIndications :Anxiety and depression,Restle ss leg syndrome,Other insomnia Take 1 tablet (0.5 mg) by mouth at bedtime 30 tablet 2 025 2024 Discontinued Multiple Vitamin (Multivitamin) tabletIndications :Vitamin deficiency Take 1 tablet by mouth Daily 30 tablet 5 025 2024 potassium chloride CR (Klor-Con) 10 MEQ ER tablet Take 10 mEq by mouth Daily 025 2024 Discontinued(R eorder) Active Problems Problem Noted Date Diagnosed Date Vomiting and diarrhea 05/28/2025 Encounter for wellness examination in adult 01/30 [...] (12/26/2024 6:39 AM EST): Continues with pulmonary Rafaela Cont current inhalers Occult blood positive stool 12/25/2024 Assessment & Plan (12/26/2024 6:43 AM EST): Neg cultures +stool for OB Referred to GI Nausea & vomiting 12/03/2024 Assessment & Plan (12/03/2024 9:41 AM EST): Has sulaiman for prn Check labs Irritable bowel syndrome with diarrhea Assessment & Plan (12/26/2024 10:25 AM EST): Stool sample results reviewed I have referred her to GI in [place] Will trial Xifaxin for for IBS-D Has failed: immmodium, pepto Sxs could also be gallbladder related as well #3 samples: lot: [id number] exp 04/26 Assessment & Plan (12/03/2024 9:42 [...] without esophagi tis 05/23/2024 Assessment & Plan (05/28/2025 6:18 AM EDT): Recommendations: freq small meals, nothing to eat or drink at least 2 hours prior to bed, limit caffeine, alcohol, as well as spicy foods Meds to limit or avoid if possible: NSAIDS Elevate HOB if possible Current meds: PPI Assessment & Plan (02/25/2025 6:39 AM EDT): [...] comorbidity in adult 10/19/2023 Assessment & Plan (05/28/2025 6:18 AM EDT): Discussed with patient their BMI (actual, verses recommended). We have also discussed lifestyle modifications: attempts to perform physical activity as chronic conditions allow, also to monitor dietary intake: increasing protein/fruits/veggies and lowering carb intake (unless contraindicated). Limit sodas, juices, and sugary drinks. Assessment & Plan (12/26/2024 6:43 AM EST): [...] use of insulin 10/19/2023 Assessment & Plan (05/28/2025 6:18 AM EDT): Check blood sugars daily, notify [...] pioglitazone A1c 6.1% 02/25/25 Assessment & Plan (02/25/2025 10:27 AM EDT): [...] (obstructive sleep apnea) 10/19/2023 Assessment & Plan (05/28/2025 6:17 AM EDT): You have a diagnosis of obstructive sleep apnea. It is recommended that you wear your PAP device any time while in bed sleeping. Not using the PAP device can increase your risk of elevated/uncontrolled high blood pressure, atrial fibrillation, heart attack, stroke, or sudden . Assessment & Plan (10/29/2024 7:41 AM EST): [...] Restless leg syndrome 10/12/2023 Assessment & Plan (05/28/2025 6:16 AM EDT): Current medication: pramipexole Assessment & Plan (07/24/2024 9:57 AM EDT): [...] GAYLE 7=4, PHQ 9=5 Assessment & Plan (05/28/2025 6:19 AM EDT): Stressors with her health and husbands health as well Current meds: buspar, klonopin prn, duloxetine, lamotrigine Assessment & Plan (02/25/2025 10:32 AM EDT): At last visit discussed a referral to counseling Stressors with her health and husbands health as well Current meds: buspar, klonopin prn, duloxetine, lamotrigine in hospital with critical low blood count She is worried about them Assessment & Plan (12/26/2024 10:23 AM EST): No med dose changes, would like counseling Refer to [facility] Assessment & Plan (12/03/2024 9:21 AM [...] as of last week, no living in [place], much less stress Essential (primary) hypertension 10/12/2023 Assessment & Plan (05/28/2025 6:17 AM EDT): Please check blood pressure daily and record DASH diet Limit caffeine Take medication as directed Contact office if chest pain, pressure, dizziness, shortness of breath, swelling legs Recommend slow position changes Current med: lisinopril/hydrochlorothiazide, b aleks Assessment & Plan (02/25/2025 6:38 AM EDT): [...] No med dose changes Mixed hyperlipidemia 10/12/2023 Assessment & Plan (05/28/2025 6:19 AM EDT): On statin therapy Check labs yearly and prn dose changes Tobacco dependence syndrome 12/24/2022 Overview (12/05/2023): Last Assessment & Plan: Provider had extended 10 min discussion again with patient about smoking cessation, at this time she doesn't want to take any further medication or that she is ready to quit smoking at this time. Assessment & Plan (12/26/2024 6:43 AM EST): The patient has been advised of the risks of continued smoking: stroke, [place], all forms of cancer, lung disease, and [...] well controlled with lasix Assessment & Plan (05/28/2025 6:18 AM EDT): Takes lasix prn Assessment & Plan (10/29/2024 7:41 AM EST): [...] Encounters Date Type Department Care Team Description 05/28/2025 9:00 AM EDT Office Visit [facility] [address] [place] [address] Brea Jj NP Restless leg syndrome (Primary Dx); ROLANDO (obstructive sleep apnea); Essential (primary) hypertension ; Gastroesophageal reflux disease without esophagitis; Edema of both lower extremities; Type 2 diabetes mellitus without complication, without long-term current use of insulin ([facility]); Class 2 severe obesity due to excess calories with serious comorbidity and body mass index (BMI) of 37.0 to 37.9 in adult ([facility]); Mixed hyperlipidemia ; Anxiety and depression ; Primary hypertension ; Vomiting and diarrhea 05/28/2025 Bamboo flowsheet [facility] [address] [place] [address] Brea Jj NP 05/10/2025 Refill [facility] [address] [place] [address] Brea Jj NP Anxiety and depression ; Restless leg syndrome; Other insomnia 04/30/2025 Clinisync Result Encounter [facility] External Department Unsolicited Provider, Generic External Data 04/17/2025 Clinisync Result Encounter [facility] External Department Unsolicited Brea Jj NP 04/04/2025 Refill [facility] [address] [place] [place] [address] Brea Jj NP Vitamin deficiency (Primary Dx) 03/06/2025 Refill [facility] [address] [place] [address] Brea Jj NP Osteopenia after menopause (Primary Dx) from Last 3 Months Immunizations Immunization Administration [...] oz) 05/28/2025 9:02 A M EDT Height 175.3 cm (5' 9 ) 12/26/2024 9:46 AM EST Body Mass Index 37.18 12/26/2024 9:46 AM EST Plan of Treatment Upcoming Encounters Date Type Department Care Team (Late st Contact Info) Description 08/28/2025 9:00 AM EDT Office Visit [facility] [address] [address] Brea Jj, MACHINE ROOM OPERATOR [address] [place] [address] Health Maintenance Due Date Last Done Comments CT Colonography 1965 FIT-DNA 1964 FIT 1965 FOBT 1965 Sigmoidoscopy 1965 Pap Smear 1985 Diabetes: Urine Protein Screening 03/15/2025 024, 04/14/2023 Influenza Vaccine (#1) 2025 4, 07/16/2024, 08/12/2023, Additional history exists Diabetes: Hemoglobin A1C 11/28/2025 025, 02/25/2025, 10/29/2024, Additional history exists Mammogram 04/17/2026 04/17/2025, 03/31, 04/14/2023 Diabetes: Retinopathy Screening 01/01/2027 5, 01/29/2023 Cervical Cancer Screening 06/23/2028 HPV/Cotest 06/23/2028 06/23/2023 Colonoscopy 03/31/2030 03/31/2020 Colorectal Cancer Screening 03/31/2030 Procedures Procedure Name Priority Date/Time Associated Diagnosis Comments POCT GLYCOSYLATED HEMOGLOBIN (HGB A1C) Routine 05/28/2025 9:15 AM EDT Type 2 diabetes mellitus without complication, without long-term current use of insulin (HCC) CA ECHO DOPPLER COMPLETE 04/30/2025 2:12 PM EDT MM TOMOSYNTHESIS SCREENING BI 04/17/2025 4:38 PM EDT THINPREP PAP AND HPV MRNA [...] TEST ENTER/EDIT O RDERABLES Final Result * CA ECHO DOPPLER COMPLETE (04/30/2025 2:12 PM EDT) Anatomical Region Laterality Modality Other 04/30/2025 2:12 PM EDT Narrative 04/30/2025 2:13 [place] [address] Cardiology Report Signed Patient: SIS MOORE MR#: [id number] : 1965 Acct:[id number] Age/Sex: 59 / F ADM Date: 04/30/25 Loc: CARD Attending Dr: Marlene Gaviria M.D. Ordering Physician: Marlene Gaviria M.D. Date of Service: 04/30/25 Procedure(s): CA echo doppler complete Accession Number(s): [id number] cc: Brea Jj NP; Marlene Gaviria M.D. Patient Name: SIS MOORE MR#: [id number] : 1965 Exam Date: 04/30/2025 Ordering Doctor: DR MARLENE GAVIRIA M.D. ECHOCARDIOGRAM REPORT PROCEDURE: CA ECHO DOPPLER COMPLETE INDICATIONS: Dyspnea on exertion, coronary-myocardial bridge, smoker, COPD, h/o pulmonary embolism, hypertension COMPARISON: None. DESCRIPTION: COMPLETE ECHOCARDIOGRAM Real-time transthoracic echocardiography with 2D, M-mode, spectral and color flow Doppler performed. QUALITY: Technical quality was good. LEFT VENTRICLE: Left ventricle cavity size is at upper limit of normal. Mild concentric left ventricular hypertrophy. Left ventricle systolic function is normal without wall motion abnormalities, ejection fraction 50 to 55% LV EF: Normal 50 to 55% DIASTOLIC: Normal diastolic function ATRIAL SEPTUM: Appears intact LEFT ATRIUM: Normal chamber size. RIGHT ATRIUM: Normal chamber size. RIGHT VENTRICLE: Normal chamber size. Normal right ventricular systolic function. TRICUSPID VALVE: Normal mobility and thickness. No stenosis with trivial regurgitation. Cannot evaluate pulmonary arterial pressure due to the lack of adequate tricuspid regurgitation signal MITRAL VALVE: Normal mobility and thickness. No evidence of mitral valve stenosis. There is no mitral annular calcification. No mitral regurgitation. AORTIC VALVE: Normal trileaflet appearance. No visible sclerosis. Normal leaflet mobility. No evidence of aortic valve stenosis. No aortic regurgitation. AORTIC ROOT: Normal diameter and appearance. Ascending aorta is normal in size. PULMONIC VALVE: Normal thickness and mobility. No stenosis. Trivial regurgitation. PERICARDIUM: No evidence of pericardial effusion. IVC: Collapes with inspirations. IVC is normal in size PLEURA: CONCLUSION: Mild concentric left ventricle hypertrophy Left ventricle cavity size at upper limit of normal Normal left ventricle systolic function without wall motion abnormalities, ejection fraction 50 to 55% Normal left ventricular diastolic function Normal right ventricular size and systolic function No significant valvular abnormalities Adult Echocardiography Procedure Report Left Ventricle LVEDD (3.7 - 5.6 cm): 5.28 cm LVESD (2.2 - 4.0 cm): 4.03 cm LVIVS thickness (0.6 - 1.2 cm): 1.15 cm LVPW thickness (0.5 - 1.0 cm): 1.07 cm e': 0.07 m/s E - e': 8.88 LVOT Max Gradient: 5.90 mm[Hg] LVOT Area (cm2): 1.21 m/s Peak Velocity (LVOT): 1.21 m/s LVOT Diameter 2.34 cm Left Ventricular Ejection Fraction: 44.64 % Left Atrium LA Volume Index (2D A2C): 29.11 ml/m2 Left Atrium Systolic Dimension: 4.59 cm Mitral Valve MV E to A Ratio: 0.81 Mitral Valve A-Wave Peak Velocity: 0.82 m/s Mitral Valve E-Wave Peak Velocity: 0.67 m/s Right Ventricle Aorta AO Root Diam: 3.05 cm Ascending Ao Diam: 2.78 cm Aortic Valve AoV Area (Peak Cabrera): 3.37 cm2, 3.37 cm2 Peak Velocity(Antegrade Flow): 1.55 m/s Peak Gradient(Antegrade Flow): 9.64 mm[Hg] Tricuspid Valve Pulmonic Valve Peak Gradient: 6.21 mm[Hg], 6.04 mm[Hg] Right Atrium Right Atrium Systolic Pressure: 46.59 ml, 46.59 ml Dictated by: Jose Alfredo Hill MD on 04/30/2025 at 14:05 Approved by: Jose Alfredo Hill MD on 04/30/2025 at 14:11 Dictated By: Jose Alfredo Hill M.D. Signed By: 04/30/25 1413 DD/ 141 TD/TT: Banking Attorney: Procedure Note Radiology, Radiologist, MD - 04/30/2025 [place] [address] Cardiology Report Signed Patient: SIS MOORE JMR#: [id number] : 1965Acct:[id number] Age/Sex: 59 / FADM Date: 04/30/25 Loc: CARD Attending Dr: Marlene Gaviria M.D. Ordering Physician: Marlene Gaviria M.D. Date of Service: 04/30/25 Procedure(s): CA echo doppler complete Accession Number(s): [id number] cc: Brea Jj MACHINE ROOM OPERATOR; Marlene Gaviria M.D. Patient Name: SIS MOORE MR#: [id number] : 1965 Exam Date: 04/30/2025 Ordering Doctor: DR MARLENE GAVIRIA M.D. ECHOCARDIOGRAM REPORT PROCEDURE: CA ECHO DOPPLER COMPLETE INDICATIONS: Dyspnea on exertion, coronary-myocardial bridge, smoker, COPD, h/o pulmonary embolism, hypertension COMPARISON: None. DESCRIPTION: COMPLETE ECHOCARDIOGRAM Real-time transthoracic echocardiography with 2D, M-mode, spectral and color flow Dopplerperformed. QUALITY: Technical quality was good. LEFT VENTRICLE: Left ventricle cavity size is at upper limit ofnormal. Mild concentric left ventricular hypertrophy. Left ventricle systolic function is normal without wall motion abnormalities, ejection fraction 50to 55% LV EF: Normal 50 to 55% DIASTOLIC: Normal diastolic function ATRIAL SEPTUM: Appears intact LEFT ATRIUM: Normal chamber size. RIGHT ATRIUM: Normal chamber size. RIGHT VENTRICLE: Normal chamber size. Normal right ventricularsystolic function. TRICUSPID VALVE: Normal mobility and thickness. No stenosis withtrivial regurgitation. Cannot evaluate pulmonary arterial pressure due to thelack of adequate tricuspid regurgitation signal MITRAL VALVE: Normal mobility and thickness. No evidence of mitralvalve stenosis. There is no mitral annular calcification. No mitralregurgitation. AORTIC VALVE: Normal trileaflet appearance. No visible sclerosis.Normal leaflet mobility. No evidence of aortic valve stenosis. No aortic regurgitation. AORTIC ROOT: Normal diameter and appearance. Ascending aorta is normal in size. PULMONIC VALVE: Normal thickness and mobility. No stenosis. Trivial regurgitation. PERICARDIUM: No evidence of pericardial effusion. IVC: Collapes with inspirations. IVC is normal in size PLEURA: CONCLUSION: Mild concentric left ventricle hypertrophy Left ventricle cavity size at upper limit of normal Normal left ventricle systolic function without wall motion abnormalities, ejection fraction 50 to 55% Normal left ventricular diastolic function Normal right ventricular size and systolic function No significant valvular abnormalities Adult Echocardiography Procedure Report Left Ventricle LVEDD (3.7 - 5.6 cm): 5.28 cm LVESD (2.2 - 4.0 cm): 4.03 cm LVIVS thickness (0.6 - 1.2 cm): 1.15 cm LVPW thickness (0.5 - 1.0 cm): 1.07 cm e': 0.07 m/s E - e': 8.88 LVOT Max Gradient: 5.90 mm[Hg] LVOT Area (cm2): 1.21 m/s Peak Velocity (LVOT): 1.21 m/s LVOT Diameter 2.34 cm Left Ventricular Ejection Fraction: 44.64 % Left Atrium LA Volume Index (2D A2C): 29.11 ml/m2 Left Atrium Systolic Dimension: 4.59 cm Mitral Valve MV E to A Ratio: 0.81 Mitral Valve A-Wave Peak Velocity: 0.82 m/s Mitral Valve E-Wave Peak Velocity: 0.67 m/s Right Ventricle Aorta AO Root Diam: 3.05 cm Ascending Ao Diam: 2.78 cm Aortic Valve AoV Area (Peak Cabrera): 3.37 cm2, 3.37 cm2 Peak Velocity(Antegrade Flow): 1.55 m/s Peak Gradient(Antegrade Flow): 9.64 mm[Hg] Tricuspid Valve Pulmonic Valve Peak Gradient: 6.21 mm[Hg], 6.04 mm[Hg] Right Atrium Right Atrium Systolic Pressure: 46.59 ml, 46.59 ml Dictated by: Jose Alfredo Hill MD on 04/30/2025 at 14:05 Approved by: Jose Alfredo Hill MD on 04/30/2025 at 14:11 Dictated By: Jose Alfredo Hill M.D. Signed By:04/30/25 1413 DD/ 141 TD/TT: Banking Attorney: Generic External Data Provider [facility] Final Result * MM TOMOSYNTHESIS SCREENING BI (04/17/2025 4:38 PM EDT) Anatomical Region Laterality Modality Other 04/17/2025 4:38 PM EDT Narrative 04/17/2025 4:39 [place] [address] Mammography Report Signed Patient: SIS MOORE MR#: [id number] : 1965 Acct:[id number] Age/Sex: 59 / F ADM Date: 04/17/25 Loc: MAMMO Attending Dr: Brea Jj NP Ordering Physician: Brea Jj NP Results: Date of Service: 04/17/25 Follow Up: Procedure(s): MM tomosynthesis screening BI Accession Number(s): [id number] cc: Brea Jj NP Patient Name: SIS MOORE MR#: [id number] : 1965 Exam Date: 04/17/2025 Ordering Doctor: [...] Treatments None Family Cancers None LOCATION: [facility] BREAST COMPOSITION: The breasts are [...] Signed By: 04/17/25 1639 DD/ 1638 TD/TT: Banking Attorney: Procedure Note Radiology, Radiologist, MD - 04/17/2025 [place] [address] Mammography Report Signed Patient: SIS MOORE JMR#: [id number] : 1965Acct:[id number] Age/Sex: 59 / FADM Date: 04/17/25 Loc: MAMMO Attending Dr: Brea Jj NP Ordering Physician: Brea Jj NPResults: Date of Service: 04/17/25Follow Up: Procedure(s): MM tomosynthesis screening BI Accession Number(s): [id number] cc: Brea Jj NP Patient Name: SIS MOORE MR#: [id number] : 1965 Exam Date: 04/17/2025 Ordering Doctor: ENRIQUE JJ DROP BOARD WORKER RADIOLOGY REPORT PROCEDURE: MM TOMOSYNTHESIS SCREENING BI [...] Treatments None Family Cancers None LOCATION: [facility] BREAST COMPOSITION: The breasts are [...] on 04/17/2025 at 16:38 Dictated By: Malcom Anrde M.D. Signed By:04/17/25 1639 DD/ 1638 TD/TT: Banking Attorney: us Brea Jj NP [facility] Final [...] components cannot be reported in this patient. RV TECHNICIAN [facility] Comment: COLE BRAVO(ASCP) CT screening location: [email or web address] [address]. (ALWAYS MESSAGE) [facility] Comment: EXPLANATORY NOTE: The [...] Not Detected Not Detected [facility] Comment: Methodology: Skip Pitman-Mediated Amplification This assay detects E6/E7 viral messenger RNA (mRNA) from 14 high-risk HPV types (16,18,31,33,35,39,45,51,52,56,58,59,66,68). Cervical sources are required for HPV testing. If a vaginal source from a patient who has had a total hysterectomy with removal of cervix was submitted, please contact the testing laboratory for alternative testing options. For additional information, please refer to http://education.SourceMedical/faq/ELH094y0 (This link if provided for information/ educational purposes only.) Other 06/23/2023 10:2 8 AM EDT 06/24/2023 4:13 AM EDT Narrative Resulting Agency Comment Performing Organization Information Site ID: [id number] Name: [email or web address] Address: [address] [place] [address], [address] [place] [phone] Director: Zaki Prasad MD Yessica Kline NP LAB BLOOD ORDERABLES Nataliya sorensen Result [facility] from Last 3 Months or Most Recently Relevant to Health Maintenance [place] [address] [employer] Care Teams Pattern Chain Maker Supervisor Relationship Specialty Start Date End Date Jose M Light MD [address] [place] [address] PCP - General Family Medicine 10/18/23 Brea Jj NP [address] [place] [address] [facility] 07/31/24 Brea Jj NP [address] [place] [address] Nurse Practitioner Family Medicine 10/18/23
--- OUTSIDE RECORDS SUMMARY | 2025-05-28 10:02 | XMS_ITS | Patient Health Record ---
Author Organization [facility] Address [address] [place] [address] Support Name Relationship Address Phone ALIYA CONDON Guarantor Unknown [phone] Reason For Referral No Information Social History [...] Problem Status W/U Status Risk Notes Problem [id number] Primary osteoarthritis of left knee (M17.12) Active confirmed Plan Of Treatment No Information Insurance Providers Payer Name Payer Address Payer Phone Subscriber Number Group Number Insured Name Patient Relationship to Insured Coverage Start Date Coverage End Date Medicaid [place] [address] [facility] [id number] ALIYA CONDON Self - patient is the insured
--- OUTSIDE RECORDS SUMMARY | 2025-05-28 10:02 | XMS_ITS | Encounter Summary ---
Author Organization [facility] Address [address] [facility] [place] [address] Care Team Providers Care Service Now Developer Name Role Phone Brea Jj TRIM ATTACHER Unavailable [phone] Jose M Light MD Primary Care Provider [phone] Brea Jj TRIM ATTACHER Unavailable [phone] Encounter Details Date Type Department Care Team (Late st Contact Info) Description 05/28/2025 Bamboo flowsheet [facility] [address] [place] [address] Brea Jj NP [address] [place] [address] Social History Tobacco Use Types Packs/Day Years [...] [facility] [address] [place] [address] Brea Jj NP [address] [place] [address] documented as of this encounter Visit Diagnoses Not on filedocumented in this encounter Care Teams Service Now Developer Relationship Specialty Start Date End Date Jose M Light MD [address] [place] [address] PCP - General Family Medicine 10/18/23 Brea Jj NP [address] [place] [address] PCP - [facility] 07/31/24 Brea Jj NP [address] [place] [address] Nurse Practitioner Family Medicine 10/18/23 documented as of this encounter
--- OUTSIDE RECORDS SUMMARY | 2025-05-28 10:02 | XMS_ITS | Encounter Summary ---
Author Organization [facility] Address [address] [facility] [place] [address] Care Team Providers Care Driver License Technician Name Role Phone Brea Jj THREAD MACHINE OPERATOR Unavailable [phone] Jose M Light MD Primary Care Provider [phone] Brea Jj THREAD MACHINE OPERATOR Unavailable [phone] Tram Crooks GARMENT PARTS CUTTER HAND Unavailable Diana Stephen GARMENT PARTS CUTTER HAND Unavailable [phone] Encounter Details Date Type Department Care Team (Late st Contact Info) Description 04/16/2024 Clinisync Result Encounter [facility] External Department Unsolicited Brea Jj NP [address] [facility] [address] Social History Tobacco Use Types [...] Visit [facility] [address] [place] [address] Brea Jj NP [address] [place] [address] documented as of this encounter Procedures Procedure Name Priority Date/Time Associated Diagnosis Comments MM TOMOSYNTHESIS SCREENING BI 04/16/2024 3:04 PM EDT documented in this encounter Results * MM TOMOSYNTHESIS SCREENING BI (04/16/2024 3:04 PM EDT) Anatomical Region Laterality Modality Other 04/16/2024 3:04 PM EDT Narrative 04/16/2024 3:05 [place] [address] Mammography Report Signed Patient: SIS MOORE MR#: [id number] : 1965 Acct:[id number] Age/Sex: 58 / F ADM Date: 04/16/24 Loc: MAMMO Attending Dr: Brea Jj NP Ordering Physician: Brea Jj NP Results: Date of Service: 04/16/24 Follow Up: Procedure(s): MM tomosynthesis screening BI Accession Number(s): [id number] cc: Brea Jj NP Patient Name: SIS MOORE MR#: [id number] : 1965 Exam Date: 04/16/2024 Ordering Doctor: ENRIQUE Jj PRIVATE BRANCH EXCHANGE INSTALLER RADIOLOGY REPORT PROCEDURE: MM TOMOSYNTHESIS SCREENING BI [...] Treatments None Family Cancers None LOCATION: [facility] BREAST COMPOSITION: The breasts are [...] Signed By: 04/16/24 1505 DD/ 1504 TD/TT: Printer'S Assistant: Procedure Note Radiology, Radiologist, MD - 04/16/2024 [place] [address] Mammography Report Signed Patient: SIS MOORE JMR#: [id number] : 1965Acct:[id number] Age/Sex: 58 / FADM Date: 04/16/24 Loc: MAMMO Attending Dr: Brea Jj NP Ordering Physician: Brea Jj NPResults: Date of Service: 04/16/24Follow Up: Procedure(s): MM tomosynthesis screening BI Accession Number(s): [id number] cc: Brea Jj NP Patient Name: SIS MOORE MR#: [id number] : 1965 Exam Date: 04/16/2024 Ordering Doctor: ENRIQUE Jj CNP RADIOLOGY REPORT PROCEDURE: MM TOMOSYNTHESIS SCREENING BI COMPARISON: MM TOMOSYNTHESIS SCREENING BI, 04/14/2023. MG MAMM [id number] EMY CAD, 04/30/2022. MG MAMM SCREEN 3D EMY CAD, 04/29/2021. MG MAMM BILSCRN W CAD DIG, 09/05/2007. INDICATIONS: Screening Calculator Name NCI Breast Cancer Risk Assessment Tool 5 Year Breast Cancer Risk 0.90% Lifetime Breast Cancer Risk 5.00% Personal Breast Cancer No Personal Ovarian Cancer No Treatments None Family Cancers None LOCATION: [facility] BREAST COMPOSITION: The breasts are [...] M.D. Signed By:04/16/24 1505 DD/ 1504 TD/TT: Printer'S Assistant: Brea Jj NP [facility] Final Result documented in this encounter Visit Diagnoses Not on filedocumented in this encounter Care Teams Driver License Technician Relationship Specialty Start Date End Date Jose M Light MD [address] [place] [address] PCP - General Family Medicine 10/18/23 Brea Jj NP [address] [place] [address] PCP - [facility] 07/31/24 Brea Jj NP [address] [place] [address] Nurse Practitioner Family Medicine 10/18/23 [place] [address] [place] [address] Veneer Sorter Clinical Education Manager 11/14/24 11/15/24 Diana Stephen, SKY [address] [place] [address] Veneer Sorter Family Medicine 11/15/24 11/26/24 documented as of this encounter
--- OUTSIDE RECORDS SUMMARY | 2025-05-28 10:02 | XMS_ITS | Encounter Summary ---
Author Organization [facility] Address [address] [facility] [place] [address] Care Team Providers Care Director Of Conservation Name Role Phone Brea Jj FLAT CUTTER Unavailable [phone] Jose M Light MD Primary Care Provider [phone] Brea Jj FLAT CUTTER Unavailable [phone] Tram Crooks SHAVING MACHINE OPERATOR Unavailable Diana Stephen SHAVING MACHINE OPERATOR Unavailable [phone] Encounter Details Date Type Department Care [...] [facility] [address] [place] [address] Brea Jj NP [address] [place] [address] documented as of this encounter Procedures Procedure Name Priority Date/Time Associated Diagnosis Comments RT PULMONARY FUNCTION TEST 02/13/2024 9:14 AM EDT documented in this encounter Results * RT PULMONARY FUNCTION TEST (02/13/2024 9:14 AM EDT) Anatomical Region Laterality Modality Other 02/13/2024 9:14 AM EDT Narrative 02/15/2024 7:11 [place] [address] Respiratory Report Signed Patient: SIS MOORE MR#: [id number] : 1965 Acct:[id number] Age/Sex: 58 / F ADM Date: 02/13/24 Loc: LAB Attending Dr: Calvin Russo D.O. Ordering Physician: Calvin Russo D.O. Date of Service: 02/13/24 Procedure(s): RT pulmonary function test Accession Number(s): [id number] cc: [facility] Test Date: 2024-02-13 Pat Name: SIS MOORE Department: Room: - Gender: Female Collections Attorney: Gerald Caputo RRT : 1965 Requested By: Calvin Russo Order Number: [id number] Reading MD: Calvin Russo Interpretive Statements Pulmonary function testing was completed according to ATS criteria. Findings were considered accurate and reproducible. Both pre- and post-bronchodilator values utilized for spirometry. Spirometry (based on pre-bronchodilator values): -FEV1/FVC: Normal @ 77% -FEV1: Moderately reduced @ 54% -FVC: Severely reduced @ 54% -FGM12-70%: Reduced @ 47% -There is a partial [...] Signed By: 02/15/24 0711 DD/ 0914 TD/TT: Machine Learning Intern: Procedure Note Radiology, Radiologist, MD - 02/15/2024 [place] [address] Respiratory Report Signed Patient: SIS MOORE R#: [id number] : 1965Acct:[id number] Age/Sex: 58 / FADM Date: 02/13/24 Loc: LAB Attending Dr: Calvin Russo D.O. Ordering Physician: Calvin Russo D.O. Date of Service: 02/13/24 Procedure(s): RT pulmonary function test Accession Number(s): [id number] cc: [facility] Test Date: 2024-02-13 Pat Name: SIS MOORE Department: Room: - Gender: Female Collections Attorney: Gerald Caputo RRT : 1965 Requested By: Calvin Russo Order Number: [id number] Reading MD: Calvin Russo Interpretive Statements Pulmonary function testing was completed according to ATS criteria.Findings were considered accurate and reproducible. Both pre- andpost-bronchodilator values utilized for spirometry. Spirometry (based on pre-bronchodilator values): -FEV1/FVC: Normal @ 77% -FEV1: Moderately reduced @ 54% -FVC: Severely reduced @ 54% -EAC82-21%: Reduced @ 47% -There is a partial [...] D.O. Signed By:02/15/24 0711 DD/ 0914 TD/TT: Machine Learning Intern: us Generic External Data Provider [facility] Final Result documented in this encounter Visit Diagnoses Not on filedocumented in this encounter Care Teams Director Of Conservation Relationship Specialty Start Date End Date Jose M Light MD [address] [place] [address] PCP - General Family Medicine 10/18/23 Brea Jj NP [address] [place] [address] PCP - [facility] 07/31/24 Brea Jj NP [address] [place] [address] Nurse Practitioner Family Medicine 10/18/23 [place] [address] [place] [address] Business Management Analyst Wound Care Nurse 11/14/24 11/15/24 Diana Stephen LSW [address] [place] [address] Business Management Analyst Family Medicine 11/15/24 11/26/24 documented as of this encounter
--- OUTSIDE RECORDS SUMMARY | 2025-05-28 10:02 | XMS_ITS | Patient Health Record ---
Author Organization [facility] [place] Address [address] [place] [address] Care Team Providers Care Bottle Filler Name Role Phone Brea Jj CNP Primary Care Provider Unavail able Calvin Gaines Unavailable [phone] Allergies No Known Allergies Results Component Value Reference Range Notes CT Chest Low Dose for Screen ing* Reviewed date:05/30/2024 08:45:36 AM Interpretation: Performing Lab: Notes/Report: CT lung screening low-dose Reviewed date:05/30/2024 06:26:02 AM Interpretation: Performing Lab: Notes/Report: Source Facility: [place] [address] CT Scan Report Signed Patient: SIS MOORE MR#: [id number] : 1965 Acct:[id number] Age/Sex: 58 / F ADM Date: 05/29/24 Loc: CT Attending Dr: Calvin Gaines D.O. Ordering Physician: Calvin Gaines D.O. Date of Service: 05/29/24 Procedure(s): CT lung screening low-dose Accession Number(s): [id number] cc: Brea Jj NP [place] [address] Patient Name: SIS MOORE MRN: [id number] date: 1965 Sex: F Assigned Patient Location: CT Current Patient Location: CT Accession/Order Number: [id number] Exam Date: 05/29/2024 09:29 Report Date: 05/29/2024 [...] Signed By: 05/29/24 1604 DD/ 1602 TD/TT: Boat Loader Helper: [place] [address] CT Scan Report Signed Patient: LITO MOORE MR#: [id number] : 1965 Acct:[id number] Age/Sex: 58 / F ADM Date: 05/29/24 Loc: CT Attending Dr: Calvin Gaines D.O. Ordering Physician: Calvin Gaines D.O. Date of Service: 05/29/24 Procedure(s): CT remi g screening low-dose Accession Number(s): [id number] cc: Brea Jj NP The [address] [address] Patient Name: SIS MOORE MRN: [id number] date: 1965 Sex: F Assigned Patient Location: CT Current Patient Location: CT Accession/Order Numb er: [id number] Exam Date: 05/29/2024 09:29 Report Date: 05/29/2024 [...] Signed By: 05/29/24 160 DD/ 160 TD/TT: Boat Loader Helper: Reason For Referral No Information Medications Medication [...] 9 days Take with food 02/19/2025 Active Doxepin HCl 10 MG 1 capsule at bedtime Orally Once a day Active Potassium Chloride ER 10 MEQ 1 tablet wi th food Orally Twice a day Active DULoxetine HCl 60 MG 1 capsule [...] tablet Orally O nce a day Active FeroSul 325 (65 Fe) [...] 3mL Inhalation QID for 90 days Active Albuterol Sulfate HFA 108 (9 0 Base) MCG/ACT 2 puffs as needed for SOB Inhalation every 4 hrs for 90 days Dispense #3 inhalers Active Immunizations Vaccine Route Administration Date Status [...] Problem Status W/U Status Risk Notes Problem [id number] Chronic obstructive pulmonary disease, unspecified (J44.9) Active confirmed Problem 182013773 Obesity, unspecified (E66.9) Active confirmed Problem Chronic respiratory failure (60610744) Chronic respiratory failure with hypoxia (J96.11) Active confirmed Problem Long-term current use of inhaled steroid (845235684) MCC (current) use of inhaled steroids (Z79.51) Active confirmed Problem Pulmonary embolism (49934131) Pulmonary embolism (I26.99) Active confirmed Problem Coronary artery disease (08695654) Coronary artery disease (I25.10) Active confirmed Problem Obstructive sleep apnea (78020880) Obstructive sleep apnea (G47.33) Active confirmed Problem Mental disorder caused by drug (326958086) Cigarette nicotine dependence with nicotine-induced disorder (F17.219) Active confirmed Problem Iron deficiency anemia (26289400) Iron deficiency anemia (D50.9) Active confirmed Problem Type II diabetes mellitus well controlled (060552853) Diabetes mellitus type 2, controlled (E11.9) Active confirmed Problem Paraseptal emphysema (52342621) Paraseptal emphysema (J43.8) Active confirmed Problem 074947590 Encounter for screening for lung cancer (Z12.2) Active confirmed Problem Secondary pulmonary hypertension (69362677) Other secondary pulmonary hypertension (I27.29) Active confirmed Problem History of COVID-19 (894569536697206 105) History of COVID-19 (Z86.16) Active confirmed [...] Location Date Provider Diagnosis Pulmonary Medicine [place] [address] [place] [address] 08/01/[address] [facility] Chronic respiratory failure with hypoxia J96.11 ; Paraseptal emphysema J43.8 ; Cigarette nicotine dependence with nicotine-induced disorder F17.219 ; Encounter for screening for malignant neoplasm of respiratory organs Z12.2 ; Pulmonary embolism I26.99 ; Obstructive sleep apnea G47.33 ; Diabetes mellitus type 2, controlled E11.9 ; Encounter for therapeutic drug level monitoring Z51.81 ; MCC (current) use of inhaled steroids Z79.51 and Obesity, unspecified E66.9 Pulmonary [address] [address] 01/30/[address] [facility] Chronic respiratory failure with hypoxia J96.11 ; Paraseptal emphysema J43.8 ; Cigarette nicotine dependence with nicotine-induced disorder F17.219 ; Pulmonary embolism I26.99 ; Obstructive sleep apnea G47.33 ; Diabetes mellitus type 2, controlled E11.9 ; extermination inspector (current) use of inhaled steroids Z79.51 and Obesity, unspecified E66.9 Pulmonary Medicine [place] [address] [place] [address] 05/30/2024 [facility] Pulmonary Medicine [place] [address] [place] [address] 10/09/2024 [facility] Paraseptal emphysema J43.8 Pulmonary Medicine [address] [address] 01/21/2025 [facility] Pulmonary Medicine [place] [address] [place] [address] 02/19/2025 [facility] Chronic obstructive pulmonary disease with (acute) exacerbation J44.1 Pulmonary Medicine [place] [address] [place] [address] 05/14/2025 [facility] Paraseptal emphysema J43.8 Assessments Encounter Date Diagnosis (ICD Code) Assessment Notes Treatment Notes Treatment Clinical Notes Section Notes 08/01/2024 Chronic respiratory failure with hypoxia (ICD-10 - J96.11) Pjug-as-ktld encounter performed with the patient to document [...] respiratory failure with hypoxia (ICD-10 - J96.11) Nsrl-uw-msoy encounter performed with the patient to document [...] disease with (acute) exacerbation (ICD-10 - J44.1) 05/14/2025 Paraseptal emphysema (ICD-10 - J43.8) 08/01/2024 Cigarette nicotine dependence with nicotine-induced disorder [...] return in 6 months for longitudinal evaluation. Cslm-hq-ufaw encounter performed with the patient to document [...] to manage diabetes in this situation. 01/30/2025 extermination inspector (current) use of inhaled steroids (ICD-10 - Z79.51) Patient was counseled to rinse & gargle with water after inhaled corticosteroid use. 08/01/2024 Encounter for therapeutic drug level monitoring (ICD-10 - Z51.81) Theophylline level was in therapeutic range @ 11.3. 01/30/2025 Obesity, unspecified (ICD-10 - E66.9) Patient's weight is inducing a restrictive pulmonary physiology. Weight loss indicated: Decrease calories, increase activity. 08/01/2024 MCC (current) use of inhaled steroids (ICD-10 - Z79.51) Patient was counseled to rinse & gargle with water after inhaled corticosteroid use. 08/01/2024 Obesity, unspecified (ICD-10 - E66.9) Patient's weight is inducing a restrictive pulmonary physiology. Weight loss indicated: Decrease calories, increase activity. 01/30/2025 Other Plan Of Treatment No Information Insurance Providers Payer Name Payer Address Payer Phone Subscriber Number Group Number Insured Name Patient Relationship to Insured Coverage Start Date Coverage End Date [employer] [place] [employer] [address] [place] [address] [id number] Sis Moore Self - patient is the insured 3 Medical (General) History Medical History History ICD Code Paraseptal emphysema J43.8 Chronic respiratory failure with hypoxia J96.11 extermination inspector (current) use of inhaled stero ids Z79.51 [...] deficiency anemia D50.9 Surgical History Surgery Date(Month/Year) tubal ligation section arthroscopic knee surgery-left Cardiac Catheterization 06/15/2021 Right Foot Surgery Hospitalization History Reason Date(Month/Year) Pulmonary embolism 06/16/2023
--- OUTSIDE RECORDS SUMMARY | 2025-05-28 10:02 | XMS_ITS | Encounter Summary ---
Author Organization [facility] Address [address] [facility] [place] [address] Care Team Providers Care Oval Or Circular Glass Cutter Name Role Phone Brea Jj AMMONIUM NITRATE CRYSTALLIZER Unavailable [phone] Jose M Light MD Primary Care Provider [phone] Brea Jj AMMONIUM NITRATE CRYSTALLIZER Unavailable [phone] Tram Crooks WIRE MACHINE CUTTER Unavailable Diana Stephen WIRE MACHINE CUTTER Unavailable [phone] Encounter Details Date Type Department Care [...] [facility] [address] [place] [address] Brea Jj, TOBIAS [address] [place] [address] documented as of this encounter Procedures Procedure Name Priority Date/Time Associated Diagnosis Comments CT LUNG SCREENING LOW DOSE 05/29/2024 4:02 PM EDT documented in this encounter Results * CT LUNG SCREENING LOW DOSE (05/29/2024 4:02 PM EDT) Anatomical Region Laterality Modality Other 05/29/2024 4:02 PM EDT Narrative 05/29/2024 4:04 [place] [address] CT Scan Report Signed Patient: SIS MOORE MR#: [id number] : 1965 Acct:[id number] Age/Sex: 58 / F ADM Date: 05/29/24 Loc: CT Attending Dr: Corrina Gaines D.O. Ordering Physician: Corrina Gaines D.O. Date of Service: 05/29/24 Procedure(s): CT lung screening low-dose Accession Number(s): [id number] cc: Brea Jj NP [address] [id number] Patient Name: SIS MOORE MRN: [id number] date: 1965 Sex: F Assigned Patient Location: CT Current Patient Location: CT Accession/Order Number: [id number] Exam Date: 05/29/2024 09:29 Report Date: 05/29/2024 [...] Signed By: 05/29/24 1604 DD/ 1602 TD/TT: Optical Model Maker And Tester: Procedure Note Radiology, Radiologist, MD - 05/29/[address] [address] [address] Scan Report Signed Patient: SIS MOORE R#: [id number] : 1965Acct:[id number] Age/Sex: 58 / FADM Date: 05/29/24 Loc: CT Attending Dr: Corrina Gaines D.O. Ordering Physician: Corrina Gaines D.O. Date of Service: 05/29/24 Procedure(s): CT lung screening low-dose Accession Number(s): [id number] cc: Brea Jj NP The [address] [address] Patient Name: SIS MOORE MRN: [facility]:[id number] date: 1965 Sex: F Assigned Patient Location: CT Current Patient Location: CT Accession/Order Number: [id number] Exam Date: 05/29/2024 09:29 Report Date: 05/29/2024 [...] M.D. Signed By:05/29/24 1604 DD/ 1602 TD/TT: Optical Model Maker And Tester: us Generic External Data Provider [facility] Final Result documented in this encounter Visit Diagnoses Not on filedocumented in this encounter Care Teams Oval Or Circular Glass Cutter Relationship Specialty Start Date End Date Jose M Light MD [address] [place] [address] PCP - General Family Medicine 10/18/23 Brea Jj NP [address] [place] [address] [facility] 07/31/24 Brea Jj NP [address] [place] [address] Nurse Practitioner Family Medicine 10/18/23 Tram Crooks, SKY [address] [place] [address] Hepatologist Lightning Rod Installer 11/14/24 11/15/24 Diana Stephen, SKY [address] [facility] [place] [address] Hepatologist Family Medicine 11/15/24 11/26/24 documented as of this encounter
--- OUTSIDE RECORDS SUMMARY | 2025-05-28 10:02 | XMS_ITS | Encounter Summary ---
Author Organization [facility] Address [address] [facility] [place] [address] Care Team Providers Care Water Treatment Plant Supervisor Name Role Phone Brea Jj PAPER CUP HANDLE MACHINE OPERATOR Unavailable [phone] Jose M Light MD Primary Care Provider Brea Jj PAPER CUP HANDLE MACHINE OPERATOR Unavailable [phone] Tram Crooks COVERING MACHINE OPERATOR HELPER Unavailable Diana Stephen COVERING MACHINE OPERATOR HELPER Unavailable [phone] Encounter Details Date Type Department Care Team (Late st Contact Info) Description 10/19/2023 [facility] [address] [place] [address] Brea Jj NP [address] [place] [address] Social History Tobacco Use Types Packs/Day Years Used Date Smoking Tobacco: Former Cigarettes Smokeless Tobacco: Never Tobacco Cessation:Ready to Q uit: Not Asked; Counseling Given: Not Answered Comments:11-20 cigarettes/day Alcohol Use [...] Answer Date Recorded Patient Health Questionnaire-2 Score 0 04/21/2023 Comments No Sex and Gender Information Value [...] Visit [facility] [address] [place] [address] Brea Jj NP [address] [place] [address] documented as of this encounter Visit Diagnoses Not on filedocumented in this encounter Care Teams Water Treatment Plant Supervisor Relationship Specialty Start Date End Date Jose M Light MD [address] [place] [address] PCP - General Family Medicine 10/18/23 Brea Jj NP [address] [place] [address] PCP - [facility] 07/31/24 Brea jJ NP [address] [place] [address] Nurse Practitioner Family Medicine 10/18/23 Tram Crooks, COVERING MACHINE OPERATOR HELPER [address] [place] [address] Cold Rolling Machine Setter High Pressure Boiler Operator 11/14/24 11/15/24 Diana Stephen, COVERING MACHINE OPERATOR HELPER [address] [place] [address] Cold Rolling Machine Setter Family Medicine 11/15/24 11/26/24 documented as of this encounter
--- OUTSIDE RECORDS SUMMARY | 2025-05-28 10:02 | XMS_ITS | Encounter Summary ---
Author Organization [facility] Address [address] [facility] [place] [address] Care Team Providers Care Speech Correction Assistant Name Role Phone Brea Jj NP Unavailable [phone] Jose M Light MD Primary Care Provider [phone] Brea Jj SPACE CONTROLLER Unavailable [phone] Tram Crooks DENTAL ASSISTANT Unavailable Diana Stephen DENTAL ASSISTANT Unavailable [phone] Encounter Details Date Type Department Care Team (Late st Contact Info) Description 04/02/2024 Orders Only [facility] [address] [place] [address] Brea Jj NP [address] [place] [address] Social History Tobacco Use Types Packs/Day Years [...] Visit [facility] [address] [place] [address] Brea Jj NP [address] [place] [address] documented as of this encounter Procedures Procedure Name Priority Date/Time Associated Diagnosis Comments ELECTROCARDIOGRAM REPORT Routine 024 8:56 AM EDT documented in this encounter Results * Electrocardiogram Report (03/31/2024 8:56 AM EDT) us Brea Jj NP IN CLINIC/BEDSIDE ORDERABLES Fi nal Result documented in this encounter Visit Diagnoses Not on filedocumented in this encounter Care Teams Speech Correction Assistant Relationship Specialty Start Date End Date Jose M Light MD [address] [place] [address] PCP - General Family Medicine 10/18/23 Brea Jj NP [address] [place] [address] PCP - [facility] 07/31/24 Brea Jj NP [address] [place] [address] Nurse Practitioner Family Medicine 10/18/23 Tram Crooks, DENTAL ASSISTANT [address] [place] [address] [employer] School Special Ed Teacher Teaching Music Lessons 11/14/24 11/15/24 Diana Stephen, SKY [address] [place], [place] [id number] [employer] Special Ed Teacher Family Medicine 11/15/24 11/26/24 documented as of this encounter
--- OUTSIDE RECORDS SUMMARY | 2025-05-28 10:02 | XMS_ITS | Encounter Summary ---
Author Organization [facility] Address [address] [facility] [place] [address] Care Team Providers Care Medical Staff Director Name Role Phone Brea Jj CAMPGROUND CLEANING ATTENDANT Unavailable [phone] Jose M Light MD Primary Care Provider [phone] Brea Jj CAMPGROUND CLEANING ATTENDANT Unavailable [phone] Tram Crooks POTATO SORTER Unavailable Diana Stephen POTATO SORTER Unavailable Encounter Details Date Type Department Care Team (Late st Contact Info) Description 01/17/2024 Orders Only [facility] [address] [place] [address] Brea Jj NP [address] [place] [address] Social History Tobacco Use Types Packs/Day Years [...] Visit [facility] [address] [place] [address] Brea Jj NP [address] [place] [address] documented as of this encounter Procedures Procedure Name Priority Date/Time Associated Diagnosis Comments SCANNED LABS Routine 01/17/2024 10:42 AM EDT documented in this encounter Results * SCANNED LABS (01/17/2024 10:42 AM EDT) us Brea Jj CAMPGROUND CLEANING ATTENDANT LAB CHG PERFORMABLES Final Resu lt documented in this encounter Visit Diagnoses Not on filedocumented in this encounter Care Teams Medical Staff Director Relationship Specialty Start Date End Date Jose M Light MD [address] [place] [address] PCP - General Family Medicine 10/18/23 Brea Jj NP [address] [place] [address] PCP - [facility] 07/31/24 Brea Jj NP [address] [place] [address] Nurse Practitioner Family Medicine 10/18/23 Tram Crooks, POTATO SORTER [address] [place] [address] Fine Artist Keyboarding Teacher 11/14/24 11/15/24 Diana Stephen, POTATO SORTER [address] [place] [address] Fine Artist Family Medicine 11/15/24 11/26/24 documented as of this encounter
[2025-05-28 10:16] LABS: Hematocrit 42.9 % (36.0-48.0); Hemoglobin 14.4 g/dL (12.0-16.0); Immature Granulocytes Abs Auto 0.03 10^3/uL (0.00-0.03); Immature Granulocytes Pct Auto 0.3 % (0.0-0.5); Lymphocytes Absolute Auto 1.7 10^3/uL (1.2-3.8); Mean Corpuscular HGB Conc 33.6 g/dL (29.9-35.2); Mean Corpuscular Hemoglobin 30.4 pg (26.7-34.0); Mean Corpuscular Volume 90.7 fL (81.0-99.0); Platelet Count 182 10^3/uL (150-450); Red Blood Count 4.73 10^6/uL (4.20-5.40); White Blood Count 11.5 10^3/uL (4.0-11.0)
[2025-05-28 10:17] LABS: Glucose Urine UA NEGATIVE (NEGATIVE)
[2025-05-28 10:36] LABS: Alanine Aminotransferase 19 U/L (14-59); Albumin Globulin Ratio 0.8; Albumin Level 3.4 g/dL (3.4-5.0); Alkaline Phosphatase 75 U/L (46-116); Anion Gap 16.2; Aspartate Amino Transferase 13 U/L (15-37); Calcium 9.5 mg/dL (8.5-10.1); Carbon Dioxide 26.0 mmol/L (21.0-32.0); Chloride 97 mmol/L (98-107); Cholesterol 133 mg/dL (<=200); Estimated GFR (African America 14 (>=60 mL/min/1.73m^2); Estimated GFR (Non-African Ame 12 (>=60 mL/min/1.73m^2); Globulin 4.4 g/dL; Glucose 123 mg/dL (74-106); HDL Cholesterol 76 mg/dL (40-60); Potassium 4.2 mmol/L (3.5-5.1); Sodium 135 mmol/L (136-145); Thyroid Stimulating Hormone 0.482 uIU/mL (0.358-3.740); Total Protein 7.8 g/dL (6.4-8.2); Triglycerides 119 mg/dL (<=150); VLDL CHOLESTEROL 23.8 mg/dL
[2025-05-28 11:04] LABS: Blood Urea Nitrogen 92.0 mg/dL (7.0-18.0)
== END 2025-05-28 09:56 | disposition home or self-care (01) ==
LOC: LAB 09:58
PROVIDERS: PCP Nurse Practitioner; Visit Provider Nurse Practitioner
DX: G47.33 Obstructive sleep apnea (adult) (pediatric) (principal); K21.9 Gastro-esophageal reflux disease without esophagitis; I10 Essential (primary) hypertension; R60.0 Localized edema; E11.9 Type 2 diabetes mellitus without complications; E78.2 Mixed hyperlipidemia; F41.9 Anxiety disorder, unspecified; F32.A Depression, unspecified
CPT/HCPCS: 36415; 80053; 80061; 81003; 82043; 82570; 84443; 85025; 87086

== ENCOUNTER 2025-05-28 11:59 | Emergency (ER) | payer OTHER, SELFPAY ==
[2025-05-28] VITALS (44 sets, daily range): BP systolic 68–110; BP diastolic 40–57; PULSE 81–97; TEMP 36.6–37.1; O2SAT 96–100; BMI 36.6
--- OUTSIDE RECORDS SUMMARY | 2025-05-28 09:00 | XMS_ITS | Encounter Summary ---
Author Organization [facility] Address [address] [facility] [place] [address] Care Team Providers Care Business Department Chair Name Role Phone Brea Jj ASSISTANT PROFESSOR OF MATHEMATICS Unavailable [phone] Jose M Light MD Primary Care Provider [phone] Brea Jj ASSISTANT PROFESSOR OF MATHEMATICS Unavailable [phone] Reason for Visit * Reason Comments Diabetes Encounter Details Date Type Department Care Team (Late st Contact Info) Description 05/28/2025 9:00 AM EDT [facility] [address] [place] [address] Brea Jj NP [address] [place] [address] Restless leg syndrome (Primary Dx); ROLANDO (obstructive sleep apnea); Essential (primary) hypertension ; Gastroesophageal reflux disease without esophagitis; Edema of both lower extremities; Type 2 diabetes mellitus without complication, without long-term current use of insulin (HCC); Class 2 severe obesity due to excess calories with serious comorbidity and body mass index (BMI) of 37.0 to 37.9 in adult ([facility]); Mixed hyperlipidemia ; Anxiety and depression ; Primary hypertension ; Vomiting and diarrhea Social History Tobacco Use Types Packs/Day Years [...] AM EDT documented as of this encounter Last Filed Vital Signs Vital Sign Reading Time Taken Comments Blood Pressure 92/60 05/28/2025 9:34 AM EDT Pulse 83 05/28/2025 9:02 AM EDT Temperature 36.7 C (98.1 F) 05/28/2025 9:02 AM EDT Respiratory Rate 20 05/28/2025 9:02 AM EDT Oxygen Saturation 96% 05/28/2025 9:02 AM EDT Inhaled Oxygen Concentration - - Weight 114 kg (251 lb 12.8 oz) 05/28/2025 9:02 A M EDT Height - - Body Mass Index 37.18 12/26/2024 9:46 AM EST documented in this encounter Patient Instructions * Patient Instructions* Brea Jj NP - 05/28/2025 9:00 AM EDT Check lab , Hydrate with electrolytes documented in this encounter Progress Notes * Brea Jj NP - 05/28/2025 6:19 AM EDTAssociated Problem(s): Anxiety and depression Stressors with her health and husbands health as well Current meds: buspar, klonopin prn, duloxetine, lamotrigine * Brea Jj NP - 05/28/2025 6:19 AM EDTAssociated Problem(s): Mixed hyperlipidemia On statin therapy Check labs yearly and prn dose changes * Brea Jj NP - 05/28/2025 6:18 AM EDTAssociated Problem(s): Class 2 severe obesity due to excess calories with serious comorbidity in adult ([facility]) Discussed with patient their BMI (actual, verses recommended). We have also discussed lifestyle modifications: attempts to perform physical activity as chronic conditions allow, also to monitor dietary intake: increasing protein/fruits/veggies and lowering carb intake (unless contraindicated). Limit sodas, juices, and sugary drinks. * Brea Jj NP - 05/28/2025 6:18 AM EDTAssociated Problem(s): Type 2 diabetes mellitus without complication, without long-term current useof insulin ([facility]) Check blood sugars daily, notify if <70 or >200. Take medications (pills or insulin) as directed. Monitor for s/s of hypoglycemia (sweaty, dizziness, nausea, vomiting, or shakiness). Watch for increase in thirst, urination, or appetite. Inspect feet frequently monitoring for open wounds , andalso recommend yearly eye exam. Pt should attempt to remain as physically active as chronic conditions allow, as well as trying to follow a diet low in carbohydrates, and simple sugars. Current meds: asa, statin, yusuf/hydrochlorothiazide, pioglitazone A1c 6.1% 02/25/25 * Brea Jj NP - 05/28/2025 6:18 AM EDTAssociated Problem(s): Edema of both lower extremities Takes lasix prn * Brea Jj NP - 05/28/2025 6:18 AM EDTAssociated Problem(s): Gastroesophageal reflux disease without esophagitis Recommendations: freq small meals, nothing to eat or drink at least 2 hours prior to bed, limit caffeine, alcohol, as well as spicy foods Meds to limit or avoid if possible: NSAIDS Elevate HOB if possible Current meds: PPI * Brea Jj NP - 05/28/2025 6:17 AM EDTAssociated Problem(s): Essential (primary) hypertension Please check blood pressure daily and record DASH diet Limit caffeine Take medication as directed Contact office if chest pain, pressure, dizziness, shortness of breath, swelling legs Recommend slow position changes Current med: lisinopril/hydrochlorothiazide, b aleks * Brea Jj NP - 05/28/2025 6:17 AM EDTAssociated Problem(s): ROLANDO (obstructive sleep apnea) You have a diagnosis of obstructive sleep apnea. It is recommended that you wear your PAP device any time while in bed sleeping. Not using the PAP device can increase your risk of elevated/uncontrolled high blood pressure, atrial fibrillation, heart attack, stroke, or sudden . * Brea Jj NP - 05/28/2025 6:16 AM EDTAssociated Problem(s): Restless leg syndrome Current medication: pramipexole documented in this encounter Plan of Treatment Upcoming Encounters Date Type Department Care Team (Late st Contact Info) Description 08/28/2025 9:00 AM EDT Office Visit [facility] [address] [place] [address] Brea Jj, TOBIAS [address] [place] [address] Scheduled Orders Name Type Priority Associated Diagnoses Orde r Schedule CBC and differential Lab Routine ROLANDO (obstructive sleep apnea) Gastroesophageal reflux disease without esophagitis Expected: 05/28/2025 (Approximate), Expires: 05/28/2026 Comprehensive metabolic panel Lab Routine Essential (primary) hypertension Edema of both lower extremities Type 2 diabetes mellitus without complication, without long-term current use of insulin (HCC) Mixed hyperlipidemia Expected: 05/28/2025 (Approximate), Expires: 05/28/2026 Lipid panel Lab Routine Mixed hyperlipidemia Expected: 05/28/2025 (Approximate), Expires: 05/28/2026 Urinalysis with reflex microscopic (clean catch) Lab Routine Essential (primary) hypertension Type 2 diabetes mellitus without complication, without long-term current use of insulin (HCC) Expected: 05/28/2025 (Approximate), Expires: 05/28/2026 Microalbumin / creatinine, urine ratio Lab Routine Essential (primary) hypertension Type 2 diabetes mellitus without complication, without long-term current use of insulin (HCC) Expected: 05/28/2025 (Approximate), Expires: 05/28/2026 TSH Lab Routine Anxiety and depression Expected: 05/28/2025 (Approximate), Expires: 05/28/2026 Urine culture (clean catch) Microbiology Routine Vomiting and diarrhea Expected: 05/28/2025 (Approximate), Expires: 05/28/2026 documented as of this encounter Procedures Procedure Name Priority Date/Time Associated Diagnosis Comments POCT GLYCOSYLATED HEMOGLOBIN (HGB A1C) Routine 05/28/2025 9:15 AM EDT Type 2 diabetes mellitus without complication, without long-term current use of insulin (HCC) documented in this encounter Results * (ABNORMAL) POCT glycosylated hemoglobin (Hb A1C) docked device (05/28/2025 9:15 AM EDT) Hemoglobin A1C 6.3 Blood Venous blood specimen / Unknown 05/28/2025 9:15 AM EDT Brae Jj ASSISTANT PROFESSOR OF MATHEMATICS POINT OF CARE TEST ENTER/EDIT O RDERABLES Final Result documented in this encounter Visit Diagnoses Diagnosis Restless leg syndrome- Primary Restless legs syndrome (RLS) ROLANDO (obstructive sleep apnea) Obstructive sleep apnea (adult) (pediatric) Essential (primary) hypertension Unspecified essential hypertension Gastroesophageal reflux disease without esophagitis Esophageal reflux Edema of both lower extremities Type 2 diabetes mellitus without complication, without long-term current use of insulin ([facility]) Class 2 severe obesity due to excess calories with serious comorbidity and body mass index (BMI) of 37.0 to 37.9 in adult ([facility]) Mixed hyperlipidemia Mixed hyperlipidemia Anxiety and depression Primary hypertension Unspecified essential hypertension Vomiting and diarrhea documented in this encounter Care Teams Business Department Chair Relationship Specialty Start Date End Date Jose M Light MD [address] [place] [address] PCP - General Family Medicine 10/18/23 Brea Jj NP [address] [place] [address] PCP - [facility] 07/31/24 Brea Jj NP [address] [place] [address] Nurse Practitioner Family Medicine 10/18/23 documented as of this encounter
--- OUTSIDE RECORDS SUMMARY | 2025-05-28 12:06 | XMS_ITS | Clinical Summary ---
Author Organization [facility] Address [address] [facility] [place] [address] Care Team Providers Care Pillowcase Sewer Name Role Phone Brea Jj DEVELOPMENT CHEMIST Unavailable [phone] Jose M Light MD Primary Care Provider [phone] Brea Jj DEVELOPMENT CHEMIST Unavailable [phone] Allergies No known active allergies Medications [...] I have referred her to GI in [place] Will trial Xifaxin for for IBS-D Has failed: immmodium, pepto Sxs could also be gallbladder related as well #3 samples: lot: [id number] exp 04/26 Assessment & Plan (12/03/2024 9:42 [...] dose changes, would like counseling Refer to [facility] Counseling Assessment & Plan (12/03/2024 9:21 AM [...] as of last week, no living in [place], much less stress Essential (primary) hypertension 10/12/2023 [...] of the risks of continued smoking: stroke, [place], all forms of cancer, lung disease, and [...] 05/28/2025 9:00 AM EDT Office Visit [facility] [address] [place] [address] Brea Jj NP Restless leg syndrome (Primary Dx); ROLANDO (obstructive sleep apnea); Essential (primary) hypertension ; Gastroesophageal reflux disease without esophagitis; Edema of both lower extremities; Type 2 diabetes mellitus without complication, without long-term current use of insulin ([facility]); Class 2 severe obesity due to excess calories with serious comorbidity and body mass index (BMI) of 37.0 to 37.9 in adult ([facility]); Mixed hyperlipidemia ; Anxiety and depression ; Primary hypertension ; Vomiting and diarrhea 05/28/2025 Clinisync Result Encounter [facility] External Department Unsolicited Brea Jj NP 05/28/2025 Bamboo flowsheet [facility] [address] [place] [address] Brea Jj NP 05/10/2025 Refill [facility] [address] [place] [address] Brea Jj NP Anxiety and depression ; Restless leg syndrome; Other insomnia 04/30/2025 Clinisync Result Encounter [facility] External Department Unsolicited Provider, Generic External Data 04/17/2025 Clinisync Result Encounter [facility] External Department Unsolicited Brea Jj NP 04/04/2025 Refill [facility] [address] [place] [address] Brea Jj NP Vitamin deficiency (Primary Dx) 03/06/2025 Refill [facility] [address] [place] [address] Brea Jj NP Osteopenia after menopause (Primary [...] Visit [facility] [address] [place] [address] Brea Jj, TOBIAS [address] [place] [address] Health Maintenance Due Date Last Done Comments [...] Procedure Name Priority Date/Time Associated Diagnosis Comments ALL THYROID STIM HORMONE Routine 05/28/2025 10:09 AM EDT ALL LIPID PROFILE (FASTING) Routine 05/28/2025 10:09 AM EDT [facility] CMP (CMP) (FOR REMOTE [facility] USE) Routine 05/28/2025 10:09 AM EDT ALL CBC WITH AUTO DIFF Routine 05/28/2025 10:09 AM EDT TBH MICROALB CREAT RATIO RANDOM Routine 05/28/2025 10:01 AM EDT TBH UA (CLEAN/CATCH) MICROSCOPIC IF INDICATE Routine 05/28/2025 10:01 AM EDT POCT GLYCOSYLATED HEMOGLOBIN (HGB A1C) Routine 05/28/2025 [...] Relevant to Health Maintenance Results * (ABNORMAL) [facility] CMP (CMP) (FOR REMOTE [facility] USE) (05/28/2025 10:09 AM EDT) SODIUM 135(L) 136 - 145 mmol/L TBH POTASSIUM 4.2 3.5 - 5.1 mmol/L TBH CHLORIDE 97(L) 98 - 107 mmol/L TBH CARBON DIOXIDE 26.0 21.0 - 32.0 mmol/L TBH ANION GAP 16.2 TBH GLUCOSE 123(H) 74 - 106 mg/dL TBH BLOOD UREA NITROGEN 92.0(HH) 7.0 - 18.0 mg/dL TBH Comment:RESULTS CALLED TO MARLON DOUGHERTY RN CREATININE 3.94(H) 0.55 - 1.02 mg/dL TBH TBH EGFR-AF SWAZI 14(L) >=60 mL/min/1. 73m 2 TBH TBH EGFR-NON AF SWAZI 12(L) >=60 mL/min/1. 73m 2 TBH BUN CREATININE RATIO 23.4 TBH CALCIUM 9.5 8.5 - 10.1 mg/dL TBH BILIRUBIN TOTAL 0.4 0.2 - 1.0 mg/dL TBH ASPARTATE AMINO TRANSFERASE 13(L) 15 - 37 U/L TBH ALANINE AMINOTRANSFERASE 19 14 - 59 U/L TB ALKALINE PHOSPHATASE 75 46 - 116 U/L TB TOTAL PROTEIN 7.8 6.4 - 8.2 g/dL TBH ALBUMIN LEVEL 3.4 3.4 - 5.0 g/dL TBH GLOBULIN 4.4 g/dL TBH ALBUMIN GLOBULIN RATIO 0.8 TB 05/28/2025 10:0 9 AM EDT 05/28/2025 10:10 AM EDT Narrative CLINISYNC - 05/28/2025 11:04 AM EDT Brea Jj NP CLINISYNC Final Result [facility] * ALL THYROID STIM HORMONE (05/28/2025 10:09 AM EDT) THYROID STIMULATING HORMONE 0.482 0.358 - 3.740 uIU/mL TB 05/28/2025 10:0 9 AM EDT 05/28/2025 10:10 AM EDT Narrative CLINISYNC - 05/28/2025 11:04 AM EDT Brea Jj NP CLINISYNC Final Result Performing Organization Address City/[facility]/ZIP Co de Phone Number [facility] * (ABNORMAL) ALL LIPID PROFILE (FASTING) (05/28/2025 10:09 AM EDT) TRIGLYCERIDES 119 <=150 mg/dL TBH CHOLESTEROL 133 <=200 mg/dL TB HDL CHOLESTEROL 76(H) 40 - 60 mg/dL TB Comment: > or =60 mg/dl - LOW CARDIOVASCULAR RISK <40 mg/dl - HIGH CARDIOVASCULAR RISK LDL CHOLESTEROL CALCULATED 34.0 mg/dL TB Comment: <100 mg/dl OPTIMAL 100-129 mg/dl NEAR OR ABOVE OPTIMAL 130-159 mg/dl BORDERLINE HIGH 160-189 mg/dl HIGH >190 mg/dl VERY HIGH VLDL CHOLESTEROL 23.8 mg/dL TB CHOL HDL RATIO 1.8 TB Comment: 3.3 - 4.4 LOW RISK 4.4 - 7.1 AVERAGE RISK 7.1 - 11.0 MODERATE RISK >11.0 HIGH RISK 05/28/2025 10:0 9 AM EDT 05/28/2025 10:10 AM EDT Narrative LIZZIEISYNC - 05/28/2025 11:04 AM EDT us Brea Jj DEVELOPMENT CHEMIST CLINISYNC Final Result CLINISYNC TB * (ABNORMAL) ALL CBC WITH AUTO DIFF (05/28/2025 10:09 AM EDT) TB WBC 11.5(H) 4.0 - 11.0 10 3/uL TBH TBH RBC 4.73 4.20 - 5.40 10 6/uL TBH TBH HGB 14.4 12.0 - 16.0 g/dL TBH TBH HCT 42.9 36.0 - 48.0 % TBH TBH MCV 90.7 81.0 - 99.0 fL TBH TBH MCH 30.4 26.7 - 34.0 pg TBH TBH MCHC 33.6 29.9 - 35.2 g/dL TBH TBH RDW 15.2(H) 11.0 - 15.0 % TBH TBH PLT 182 150 - 450 10 3/uL TBH TBH MPV 12.3 9.5 - 13.5 fL TBH NEUTROPHILS PERCENT AUTO 73.2 43.0 - 75.0 % TBH LYMPHOCYTES PERCENT AUTO 15.2(L) 20.5 - 60.0 % TBH MONOCYTES PERCENT AUTO 9.1 1.7 - 12.0 % TBH TBH EO % 1.9 0.9 - 7.0 % TBH BASOPHILS PERCENT AUTO 0.3 0.2 - 2.0 % TBH IMMATURE GRANULOCYTES PCT AUTO 0.3 0.0 - 0.5 % TBH NEUTROPHILS ABSOLUTE AUTO 8.4(H) 1.4 - 6.5 10 3/uL TBH LYMPHOCYTES ABSOLUTE AUTO 1.7 1.2 - 3.8 10 3/uL TBH MONOCYTES ABSOLUTE AUTO 1.0(H) 0.3 - 0.8 10 3/uL TBH TBH EO # 0.2 0.0 - 0.7 10 3/uL TBH BASOPHILS ABSOLUTE AUTO 0.0 0.0 - 0.1 10 3/uL TBH IMMATURE GRANULOCYTES ABS AUTO 0.03 0.00 - 0.03 10 3/uL TBH 05/28/2025 10:0 9 AM EDT 05/28/2025 10:10 AM EDT Narrative CLINISYNC - 05/28/2025 10:16 AM EDT Brea Jj DEVELOPMENT CHEMIST CLINISYNC Final Result Performing Organization Address [facility] de Phone Number CLINISYAR TB * (ABNORMAL) TBH UA (CLEAN/CATCH) MICROSCOPIC IF INDICATE (05/28/2025 10:01 AM EDT) COLOR URINE LT. YELLOW YELLOW TBH CLARITY URINE CLEAR CLEAR TBH SPECIFIC GRAVITY URINE <=1.005(A) 1.005 - 1.025 TBH PH URINE 5.5 5.0 - 9.0 TBH PROTEIN URINE NEGATIVE NEG/TRACE mg/dL TBH GLUCOSE URINE UA NEGATIVE NEGATIVE mg/dL TBH BILIRUBIN URINE NEGATIVE NEGATIVE TBH KETONES URINE NEGATIVE NEGATIVE mg/dL TBH BLOOD URINE NEGATIVE NEGATIVE TBH NITRITE URINE NEGATIVE NEGATIVE TBH UROBILINOGEN URINE 0.2 0.2 - 1.0 EU/dL TBH LEUKOCYTE ESTERASE URINE NEGATIVE NEGATIVE TBH URINE MICROSCOPIC INDICATED NO TBH 05/28/2025 10:0 1 AM EDT 05/28/2025 10:10 AM EDT Valdemar CLINISYAR - 05/28/2025 10:17 AM EDT Brea Jj NP CLINISYNC Final Result Performing Organization Address [facility] de Phone Number CLINISYAR TB * TBH MICROALB CREAT RATIO RANDOM (05/28/2025 10:01 AM EDT) MICROALBUMIN URINE RANDOM <1.3 <=30.0 mg/dL TBH CREATININE URINE RANDOM 45.39 20.00 - 300.00 mg/dL TBH 05/28/2025 10:0 1 AM EDT 05/28/2025 10:10 AM EDT Narrative CLINISYNC - 05/28/2025 10:26 AM EDT us Brea Jj NP CLINISYNC Final Result JORJE TBH * (ABNORMAL) POCT glycosylated hemoglobin (Hb A1C) docked device (05/28/2025 9:15 AM EDT) Hemoglobin A1C 6.3 Blood Venous blood specimen / Unknown 05/28/2025 9:15 AM EDT us Brea Jj NP POINT OF CARE TEST ENTER/EDIT O RDERABLES Final Result * CA ECHO DOPPLER COMPLETE (04/30/2025 2:12 PM EDT) Anatomical Region Laterality Modality Other 04/30/2025 2:12 PM EDT Narrative 04/30/2025 2:13 [place] [address] Cardiology Report Signed Patient: SIS MOORE MR#: [id number] : 1965 Acct:[id number] Age/Sex: 59 / F ADM Date: 04/30/25 Loc: CARD Attending Dr: Marlene Gaviria M.D. Ordering Physician: Marlene Gaviria M.D. Date of Service: 04/30/25 Procedure(s): CA echo doppler complete Accession Number(s): [id number] cc: Brea Jj DEVELOPMENT CHEMIST; Marlene Gaviria M.D. Patient Name: SIS MOORE MR#: [id number] : 1965 Exam Date: 04/30/2025 Ordering Doctor: [...] Signed By: 04/30/25 1413 DD/ 141 TD/TT: Warehouse Examiner: Procedure Note Radiology, Radiologist, - 04/30/2025 [place] [address] Cardiology Report Signed Patient: SIS MOORE JMR#: [id number] : 1965Acct:[id number] Age/Sex: 59 / FADM Date: 04/30/25 Loc: CARD Attending Dr: Marlene Gaviria M.D. Ordering Physician: Marlene Gaviria M.D. Date of Service: 04/30/25 Procedure(s): CA echo doppler complete Accession Number(s): [id number] cc: Brea Jj DEVELOPMENT CHEMIST; Marlene Gaviria M.D. Patient Name: SIS MOORE MR#: [id number] : 1965 Exam Date: 04/30/2025 Ordering Doctor: [...] Alfredo Hill M.D. Signed By:04/30/25 1413 DD/ 1412 TD/TT: Warehouse Examiner: us Generic External Data Provider CLINISYNC IMAGING Final Result * MM TOMOSYNTHESIS SCREENING BI (04/17/2025 4:38 PM EDT) Anatomical Region Laterality Modality Other 04/17/2025 4:38 PM EDT Narrative 04/17/2025 4:39 [place] [address] Mammography Report Signed Patient: SIS MOORE MR#: [id number] : 1965 Acct:[id number] Age/Sex: 59 / F ADM Date: 04/17/25 Loc: MAMMO Attending Dr: Brea Jj NP Ordering Physician: Brea Jj NP Results: Date of Service: 04/17/25 Follow Up: Procedure(s): MM tomosynthesis screening BI Accession Number(s): [id number] cc: Brea Jj NP Patient Name: SIS MOORE MR#: [id number] : 1965 Exam Date: 04/17/2025 Ordering Doctor: [...] Treatments None Family Cancers None LOCATION: [facility] BREAST COMPOSITION: The breasts are almost [...] Signed By: 04/17/25 1639 DD/ 1638 TD/TT: Warehouse Examiner: Procedure Note Radiology, Radiologist, MD - 04/17/2025 [place] [address] Mammography Report Signed Patient: SIS MOORE JMR#: [id number] : 1965Acct:[id number] Age/Sex: 59 / FADM Date: 04/17/25 Loc: MAMMO Attending Dr: Brea Jj NP Ordering Physician: Brea Jj NPResults: Date of Service: 04/17/25Follow Up: Procedure(s): MM tomosynthesis screening BI Accession Number(s): [id number] cc: Brea Jj NP Patient Name: SIS MOORE MR#: [id number] : 1965 Exam Date: 04/17/2025 Ordering Doctor: [...] Treatments None Family Cancers None LOCATION: [facility] BREAST COMPOSITION: The breasts are almost [...] M.D. Signed By:04/17/25 1639 DD/ 1638 TD/TT: Warehouse Examiner: Brea Jj NP CLINISYNC IMAGING Final Result [...] components cannot be reported in this patient. PHOTOGRAPHY ASSISTANT [facility] Comment: COLE BRAVO(ASCP) CT screening location: [facility], [address] [place] [address]. (ALWAYS MESSAGE) [facility] Comment: EXPLANATORY NOTE: The [...] Not Detected Not Detected [facility] Comment: Methodology: Dolly Driver-Mediated Amplification This assay detects E6/E7 viral messenger RNA (mRNA) from 14 high-risk HPV types (16,18,31,33,35,39,45,51,52,56,58,59,66,68). Cervical sources are required for HPV testing. If a vaginal source from a patient who has had a total hysterectomy with removal of cervix was submitted, please contact the testing laboratory for alternative testing options. For additional information, please refer to http://education.[employer]/faq/BHZ722n2 (This link if provided for information/ educational purposes only.) Other 06/23/2023 10:2 8 AM EDT 06/24/2023 4:13 AM EDT Narrative Resulting Agency Comment Performing Organization Information Site ID: [id number] Name: [facility] Address: [address] [place] [address], [address] [place] [address] Director: Zaki Prasad MD Yessica Kline NP LAB BLOOD ORDERABLES Nataliya sorensen Result [facility] from Last 3 Months or Most Recently Relevant to Health [place] [address] [employer] Care Teams Pillowcase Sewer Relationship Specialty Start Date End Date Jose M Light MD [address] [place] [address] PCP - General Family Medicine 10/18/23 Brea Jj NP [address] [place] [address] PCP - [facility] 07/31/24 Brea Jj NP [address] [place] [address] Nurse Practitioner Family Medicine 10/18/23
--- OUTSIDE RECORDS SUMMARY | 2025-05-28 12:06 | XMS_ITS | Encounter Summary ---
Author Organization [facility] Address [address] [place] [address] Care Team Providers Care Supervisor Graphite Name Role Phone Brea Jj MD Primary Care Provider [phone] Reason for Visit * Reason Comments Med Refill Encounter Details Date Type Department Care Team (Late st Contact Info) Description 06/09/2023 Refill [facility] [address] [place] [address] Marlene Soto MD [address] [facility] [address] [place] [phone] Edema, unspecified type; Benign essential HTN; Coronary-myocardial [...] extremities documented in this encounter Care Teams Supervisor Graphite Relationship Specialty Start Date End Date Brea Jj MD [address] [place] [address] PCP - General 12/24/22 documented as of this encounter
--- OUTSIDE RECORDS SUMMARY | 2025-05-28 12:06 | XMS_ITS | Encounter Summary ---
Author Organization [facility] Address [address] [facility] [place] [address] Care Team Providers Care Square Shear Operator Name Role Phone Brea Jj BED SPRING MAKER Unavailable [phone] Jose M Light MD Primary Care Provider [phone] Brea Jj BED SPRING MAKER Unavailable [phone] Tram Crooks MANUFACTURING EXECUTIVE Unavailable Diana Stephen MANUFACTURING EXECUTIVE Unavailable [phone] Encounter Details Date Type Department Care [...] [facility] [address] [place] [address] Brea jJ, TOBIAS [address] [place] [address] documented as of this encounter Procedures Procedure Name Priority Date/Time Associated Diagnosis Comments CT LUNG SCREENING LOW DOSE 05/29/2024 4:02 PM EDT documented in this encounter Results * CT LUNG SCREENING LOW DOSE (05/29/2024 4:02 PM EDT) Anatomical Region Laterality Modality Other 05/29/2024 4:02 PM EDT Narrative 05/29/2024 4:04 [place] [address] CT Scan Report Signed Patient: SIS MOORE MR#: [id number] : 1965 Acct:[id number] Age/Sex: 58 / F ADM Date: 05/29/24 Loc: CT Attending Dr: Corrina Gaines D.O. Ordering Physician: Corrina Gaines D.O. Date of Service: 05/29/24 Procedure(s): CT lung screening low-dose Accession Number(s): [id number] cc: Brea Jj NP [address] [id number] Patient Name: SIS MOORE MRN: TBH:[id number] date: 1965 Sex: F Assigned Patient Location: CT Current Patient Location: CT Accession/Order Number: [id number] Exam Date: 05/29/2024 09:29 Report Date: 05/29/2024 [...] Signed By: 05/29/24 1604 DD/ 1602 TD/TT: Shirt Closer: Procedure Note Radiology, Radiologist, MD - 05/29/[address] [address] [address] Scan Report Signed Patient: SIS MOORE R#: [id number] : 1965Acct:[id number] Age/Sex: 58 / FADM Date: 05/29/24 Loc: CT Attending Dr: Corrina Gaines D.O. Ordering Physician: Corrina aGines D.O. Date of Service: 05/29/24 Procedure(s): CT lung screening low-dose Accession Number(s): [id number] cc: Brea Jj NP The [address] [address] Patient Name: SIS MOORE MRN: [facility]:[id number] date: 1965 Sex: F Assigned Patient Location: CT Current Patient Location: CT Accession/Order Number: [id number] Exam Date: 05/29/2024 09:29 Report Date: 05/29/2024 [...] M.D. Signed By:05/29/24 1604 DD/ 1602 TD/TT: Shirt Closer: us Generic External Data Provider CLINISYNC IMAGING Final Result documented in this encounter Visit Diagnoses Not on filedocumented in this encounter Care Teams Square Shear Operator Relationship Specialty Start Date End Date Jose M Light MD [address] [place] [address] PCP - General Family Medicine 10/18/23 Brea Jj NP [address] [place] [address] [facility] 07/31/24 Brea Jj NP [address] [place] [address] Nurse Practitioner Family Medicine 10/18/23 Tram Crooks, SKY [address] [place] [address] Turret Press Operator Manager Intensive Care 11/14/24 11/15/24 Diana Stephen, SKY [address] [facility] [place] [address] Turret Press Operator Family Medicine 11/15/24 11/26/24 documented as of this encounter
--- OUTSIDE RECORDS SUMMARY | 2025-05-28 12:06 | XMS_ITS | Encounter Summary ---
Author Organization [facility] Address [address] [facility] [place] [address] Care Team Providers Care Digital Librarian Name Role Phone Brea Jj GARMENT MANUFACTURING SUPERVISOR Unavailable [phone] Jose M Light MD Primary Care Provider Brea Jj GARMENT MANUFACTURING SUPERVISOR Unavailable [phone] Tram Crooks RETAIL SHIFT SUPERVISOR Unavailable Diana Stephen RETAIL SHIFT SUPERVISOR Unavailable Encounter Details Date Type Department Care Team (Late st Contact Info) Description 10/19/2023 [facility] [address] [place] [address] Brea Jj NP [address] [place] [address] Social History Tobacco Use Types Packs/Day Years [...] Visit [facility] [address] [place] [address] Brea Jj NP [address] [place] [address] documented as of this encounter Visit Diagnoses Not on filedocumented in this encounter Care Teams Digital Librarian Relationship Specialty Start Date End Date Jose M Light MD [address] [place] [address] PCP - General Family Medicine 10/18/23 Brea Jj NP [address] [place] [address] PCP - [facility] 07/31/24 Brea Jj NP [address] [place] [address] Nurse Practitioner Family Medicine 10/18/23 Tram Crooks, RETAIL SHIFT SUPERVISOR [address] [place] [address] Jig Builder Helper Traveling Inventory Associate 11/14/24 11/15/24 Diana Stephen, RETAIL SHIFT SUPERVISOR [address] [place] [address] Jig Builder Helper Family Medicine 11/15/24 11/26/24 documented as of this encounter
--- OUTSIDE RECORDS SUMMARY | 2025-05-28 12:06 | XMS_ITS | Encounter Summary ---
Author Organization [facility] Address [address] [place] [address] Care Team Providers Care Face Boss Name Role Phone Brea Jj MD Primary Care Provider [phone] Reason for Visit * Reason Comments Med Refill Encounter Details Date Type Department Care Team (Late st Contact Info) Description 09/08/2023 Refill [facility] [address] [place] [phone] Toshia Weiner, RAG ROOM SUPERVISOR [address] [place] [phone] Edema, unspecified type; Benign essential HTN; Coronary-myocardial [...] extremities documented in this encounter Care Teams Face Boss Relationship Specialty Start Date End Date Brea Jj MD [address] [place] [address] PCP - General 12/24/22 documented as of this encounter
--- OUTSIDE RECORDS SUMMARY | 2025-05-28 12:06 | XMS_ITS | Encounter Summary ---
Author Organization [facility] Address [address] [facility] [place] [address] Care Team Providers Care Vascular Manager Name Role Phone Brea Jj COSMETICIAN Unavailable [phone] Jose M Light MD Primary Care Provider [phone] Brea Jj COSMETICIAN Unavailable [phone] Tram Crooks CABBAGE SALTER Unavailable Diana Stephen CABBAGE SALTER Unavailable Encounter Details Date Type Department Care Team (Late st Contact Info) Description 01/17/2024 Orders Only [facility] [address] [place] [address] Brea Jj NP [address] [place] [address] Social History Tobacco Use Types Packs/Day Years [...] Visit [facility] [address] [place] [address] Brea Jj NP [address] [place] [address] documented as of this encounter Procedures Procedure Name Priority Date/Time Associated Diagnosis Comments SCANNED LABS Routine 01/17/2024 10:42 AM EDT documented in this encounter Results * SCANNED LABS (01/17/2024 10:42 AM EDT) us Brea Jj COSMETICIAN LAB CHG PERFORMABLES Final Resu lt documented in this encounter Visit Diagnoses Not on filedocumented in this encounter Care Teams Vascular Manager Relationship Specialty Start Date End Date Jose M Light MD [address] [place] [address] PCP - General Family Medicine 10/18/23 Brea jJ NP [address] [place] [address] PCP - [facility] 07/31/24 Brea Jj NP [address] [place] [address] Nurse Practitioner Family Medicine 10/18/23 Tram Crooks, CABBAGE SALTER [address] [place] [address] Finance Director Professor Of Literature 11/14/24 11/15/24 Diana Stephen, CABBAGE SALTER [address] [place] [address] Finance Director Family Medicine 11/15/24 11/26/24 documented as of this encounter
--- OUTSIDE RECORDS SUMMARY | 2025-05-28 12:06 | XMS_ITS | Encounter Summary ---
Author Organization [facility] Address [address] [facility] [place] [address] Care Team Providers Care Accounts Receivable Assistant Name Role Phone Brea Jj NP Unavailable [phone] Jose M Light MD Primary Care Provider [phone] Brea Jj GAS ENGINE OPERATOR GENERATORS Unavailable [phone] Tarm Crooks COMPUTATIONAL CHEMIST Unavailable Diana Stephen COMPUTATIONAL CHEMIST Unavailable Encounter Details Date Type Department Care Team (Late st Contact Info) Description 04/02/2024 Orders Only [facility] [address] [place] [address] Brea Jj NP [address] [place] [address] Social History Tobacco Use Types Packs/Day Years [...] Visit [facility] [address] [place] [address] Brea Jj NP [address] [place] [address] documented as of this encounter Procedures Procedure Name Priority Date/Time Associated Diagnosis Comments ELECTROCARDIOGRAM REPORT Routine 024 8:56 AM EDT documented in this encounter Results * Electrocardiogram Report (03/31/2024 8:56 AM EDT) us Brea Jj NP IN CLINIC/BEDSIDE ORDERABLES Fi nal Result documented in this encounter Visit Diagnoses Not on filedocumented in this encounter Care Teams Accounts Receivable Assistant Relationship Specialty Start Date End Date Jose M Light MD [address] [place] [address] PCP - General Family Medicine 10/18/23 Brea Jj NP [address] [place] [address] PCP - [facility] 07/31/24 Brea Jj NP [address] [place] [address] Nurse Practitioner Family Medicine 10/18/23 Tram Crooks, COMPUTATIONAL CHEMIST [address] [place] [address] Tow Operator Robotic Welder 11/14/24 11/15/24 Diana Stephen, SKY [address] [place], [place] [id number] Tow Operator Family Medicine 11/15/24 11/26/24 documented as of this encounter
--- OUTSIDE RECORDS SUMMARY | 2025-05-28 12:06 | XMS_ITS | Encounter Summary ---
Author Organization [facility] Address [address] [facility] [place] [address] Care Team Providers Care Cord Tire Builder Name Role Phone Brea Jj GLASS SAGGER Unavailable [phone] Jose M Light MD Primary Care Provider [phone] Brea Jj GLASS SAGGER Unavailable [phone] Tram Crooks CARE ASSOCIATE Unavailable Diana Stephen CARE ASSOCIATE Unavailable Encounter Details Date Type Department Care Team (Late st Contact Info) Description 12/21/2023 Orders Only [facility] [address] [place] [address] Brea Jj NP [address] [place] [address] Social History Tobacco Use Types Packs/Day Years [...] Visit [facility] [address] [place] [address] Brea Jj NP [address] [place] [address] documented as of this encounter Procedures Procedure Name Priority Date/Time Associated Diagnosis Comments ELECTROCARDIOGRAM REPORT Routine 024 10:27 AM EST documented in this encounter Results * Electrocardiogram Report (12/20/2023 10:27 AM EST) us Brea Jj NP IN CLINIC/BEDSIDE ORDERABLES Fi nal Result documented in this encounter Visit Diagnoses Not on filedocumented in this encounter Care Teams Cord Tire Builder Relationship Specialty Start Date End Date Jose M Light MD [address] [place] [address] PCP - General Family Medicine 10/18/23 Brea Jj NP [address] [place] [address] PCP - [facility] 07/31/24 Brea Jj NP [address] [place] [address] Nurse Practitioner Family Medicine 10/18/23 Tram Crooks, CARE ASSOCIATE [address] [place] [address] Metalworking Instructor Tonnage Compilation Clerk 11/14/24 11/15/24 Diana Stephen, SKY [address] [place] [address] Metalworking Instructor Family Medicine 11/15/24 11/26/24 documented as of this encounter
--- OUTSIDE RECORDS SUMMARY | 2025-05-28 12:06 | XMS_ITS | Encounter Summary ---
Author Organization [facility] Address [address] [facility] [place] [address] Care Team Providers Care Show Host Or Hostess Name Role Phone Brea Jj RN INVASIVE Unavailable [phone] Jose M Light MD Primary Care Provider [phone] Brea Jj RN INVASIVE Unavailable [phone] Tram Crooks CERAMICS ARTIST Unavailable Diana Stephen CERAMICS ARTIST Unavailable [phone] Encounter Details Date Type Department Care Team (Late st Contact Info) Description 04/16/2024 Clinisync Result Encounter [facility] External Department Unsolicited Brea Jj NP [address] [facility] [place] [address] Social History Tobacco Use Types [...] Visit [facility] [address] [place] [address] Brea Jj NP [address] [place] [address] documented as of this encounter Procedures Procedure Name Priority Date/Time Associated Diagnosis Comments MM TOMOSYNTHESIS SCREENING BI 04/16/2024 3:04 PM EDT documented in this encounter Results * MM TOMOSYNTHESIS SCREENING BI (04/16/2024 3:04 PM EDT) Anatomical Region Laterality Modality Other 04/16/2024 3:04 PM EDT Narrative 04/16/2024 3:05 [place] [address] Mammography Report Signed Patient: SIS MOORE MR#: [id number] : 1965 Acct:[id number] Age/Sex: 58 / F ADM Date: 04/16/24 Loc: MAMMO Attending Dr: Brea Jj NP Ordering Physician: Brea Jj NP Results: Date of Service: 04/16/24 Follow Up: Procedure(s): MM tomosynthesis screening BI Accession Number(s): [id number] cc: Brea Jj NP Patient Name: SIS MOORE MR#: [id number] : 1965 Exam Date: 04/16/2024 Ordering Doctor: ENRIQUE Jj SHEET METAL INSULATOR RADIOLOGY REPORT PROCEDURE: MM TOMOSYNTHESIS SCREENING BI [...] None LOCATION: [facility] BREAST COMPOSITION: The breasts are almost [...] Signed By: 04/16/24 1505 DD/ 1504 TD/TT: Diesel Motor Mechanic: Procedure Note Radiology, Radiologist, MD - 04/16/2024 [place] [address] Mammography Report Signed Patient: SIS MOORE JMR#: [id number] : 1965Acct:[id number] Age/Sex: 58 / FADM Date: 04/16/24 Loc: MAMMO Attending Dr: Brea Jj NP Ordering Physician: Brea Jj NPResults: Date of Service: 04/16/24Follow Up: Procedure(s): MM tomosynthesis screening BI Accession Number(s): [id number] cc: Brea Jj NP Patient Name: SIS MOORE MR#: [id number] : 1965 Exam Date: 04/16/2024 Ordering Doctor: ENRIQUE Jj CNP RADIOLOGY REPORT PROCEDURE: MM TOMOSYNTHESIS SCREENING BI COMPARISON: MM TOMOSYNTHESIS SCREENING BI, 04/14/2023. MG MAMM [id number] EMY CAD, 04/30/2022. MG MAMM SCREEN 3D EMY CAD, 04/29/2021. MG MAMM BILSCRN W CAD DIG, 09/05/2007. INDICATIONS: Screening Calculator Name NCI Breast Cancer Risk Assessment Tool 5 Year Breast Cancer Risk 0.90% Lifetime Breast Cancer Risk 5.00% Personal Breast Cancer No Personal Ovarian Cancer No Treatments None Family Cancers None LOCATION: [facility] BREAST COMPOSITION: The breasts are almost [...] M.D. Signed By:04/16/24 1505 DD/ 1504 TD/TT: Diesel Motor Mechanic: Brea Jj NP [facility] Final Result documented in this encounter Visit Diagnoses Not on filedocumented in this encounter Care Teams Show Host Or Hostess Relationship Specialty Start Date End Date Jose M Light MD [address] [place] [address] PCP - General Family Medicine 10/18/23 Brea Jj NP [address] [place] [address] PCP - [facility] 07/31/24 Brea Jj NP [address] [place] [address] Nurse Practitioner Family Medicine 10/18/23 Tram Cro[place] [address] [place] [address] Court Reporter Work Manager 11/14/24 11/15/24 Diana Stephen, SKY [address] [place] [address] Court Reporter Family Medicine 11/15/24 11/26/24 documented as of this encounter
--- OUTSIDE RECORDS SUMMARY | 2025-05-28 12:06 | XMS_ITS | Clinical Summary ---
Author Organization [facility] Address [address] [place] [address] Care Team Providers Care Grips Name Role Phone Brea Jj MD Primary Care Provider [phone] Allergies No known active allergies Medications albuterol [...] stool 12/25/2024 Irritable bowel syndrome with diarrhea 5 Nausea & vomiting 12/03/2024 Weight loss, unintentional [...] Diagnosed Date Resolved Date Centrilobular emphysema 12/24/202212/02 Encounters Date Type Department Care Team Description 03/28/2025 9:15 AM EDT Office Visit [address] [address] Marlene Soto MD Coronary-myocardial bridge (Primary Dx); Dyspnea on exertion; Other pulmonary embolism without acute cor pulmonale, unspecified chronicity (CMS/HCC) 03/27/2025 Orders Only [address] [address] Provider, MD Ji from Last 3 Months [...] Vaccines (1 of 2) 2014 COVID-19 Vaccine (3 - season) 2024 02/13/2021, 01/23/2021 Influenza Vaccine (#1) 2025 , 07/16/2024, 08/12/2023, Additional history exists HIB Vaccines Aged [...] on patient's age to complete this topic Insurance [facility] MEDICAID Care Teams Grips Relationship Specialty Start Date End Date Brea Jj MD [address] [place] [address] PCP - General 12/24/22
--- OUTSIDE RECORDS SUMMARY | 2025-05-28 12:06 | XMS_ITS | Encounter Summary ---
Author Organization [facility] Address [address] [place] [address] Care Team Providers Care Peer Support Specialist Name Role Phone Brea Jj MD Primary Care Provider [phone] Reason for Visit * Reason Comments Med Refill Encounter Details Date Type Department Care Team ([facility] st Contact Info) Description 12/08/2023 Refill [facility] [address] [place] [address] Marlene Soto MD [address] [facility] [address] [place] [address] Edema, unspecified type Social History Tobacco Use [...] type documented in this encounter Care Teams Peer Support Specialist Relationship Specialty Start Date End Date Brea Jj MD [address] [place] [address] PCP - General 12/24/22 documented as of this encounter
--- OUTSIDE RECORDS SUMMARY | 2025-05-28 12:06 | XMS_ITS | Encounter Summary ---
Author Organization [facility] Address [address] [facility] [place] [address] Care Team Providers Care Investigations Consultant Name Role Phone Brea Jj MANAGER OF CASE MANAGEMENT Unavailable [phone] Jose M Light MD Primary Care Provider [phone] Brea Jj MANAGER OF CASE MANAGEMENT Unavailable [phone] Tram Crooks DESIGN AGENT Unavailable Diana Stephen DESIGN AGENT Unavailable [phone] Encounter Details Date Type Department Care [...] [facility] [address] [place] [address] Brea Jj NP [address] [place] [address] documented as of this encounter Procedures Procedure Name Priority Date/Time Associated Diagnosis Comments RT PULMONARY FUNCTION TEST 02/13/2024 9:14 AM EDT documented in this encounter Results * RT PULMONARY FUNCTION TEST (02/13/2024 9:14 AM EDT) Anatomical Region Laterality Modality Other 02/13/2024 9:14 AM EDT Narrative 02/15/2024 7:11 [place] [address] Respiratory Report Signed Patient: SIS MOORE MR#: [id number] : 1965 Acct:[id number] Age/Sex: 58 / F ADM Date: 02/13/24 Loc: LAB Attending Dr: Calvin Russo D.O. Ordering Physician: Calvin Russo D.O. Date of Service: 02/13/24 Procedure(s): RT pulmonary function test Accession Number(s): [id number] cc: [facility] Test Date: 2024-02-13 Pat Name: SIS MOORE Department: Room: - Gender: Female Fisher Terrapin: Gerald Caputo RRT : 1965 Requested By: Calvin Russo Order Number: [id number] Reading MD: Calvin Russo Interpretive Statements Pulmonary function testing was completed according to ATS criteria. Findings were considered accurate and reproducible. Both pre- and post-bronchodilator values utilized for spirometry. Spirometry (based on pre-bronchodilator values): -FEV1/FVC: Normal @ 77% -FEV1: Moderately reduced @ 54% -FVC: Severely reduced @ 54% -GPQ36-79%: Reduced @ 47% -There is a partial [...] Signed By: 02/15/24 0711 DD/ 0914 TD/TT: It Instructor: Procedure Note Radiology, Radiologist, MD - 02/15/2024 [place] [address] Respiratory Report Signed Patient: SIS MOORE R#: [id number] : 1965Acct:[id number] Age/Sex: 58 / FADM Date: 02/13/24 Loc: LAB Attending Dr: Calvin Russo D.O. Ordering Physician: Calvin Russo D.O. Date of Service: 02/13/24 Procedure(s): RT pulmonary function test Accession Number(s): [id number] cc: [facility] Test Date: 2024-02-13 Pat Name: SIS MOORE Department: Room: - Gender: Female Fisher Terrapin: Gerald Caputo RRT : 1965 Requested By: Calvin Russo Order Number: [id number] Reading MD: Calvin Russo Interpretive Statements Pulmonary function testing was completed according to ATS criteria.Findings were considered accurate and reproducible. Both pre- andpost-bronchodilator values utilized for spirometry. Spirometry (based on pre-bronchodilator values): -FEV1/FVC: Normal @ 77% -FEV1: Moderately reduced @ 54% -FVC: Severely reduced @ 54% -UFL52-35%: Reduced @ 47% -There is a partial [...] D.O. Signed By:02/15/24 0711 DD/ 0914 TD/TT: It Instructor: us Generic External Data Provider [facility] Final Result documented in this encounter Visit Diagnoses Not on filedocumented in this encounter Care Teams Investigations Consultant Relationship Specialty Start Date End Date Jose M Light MD [address] [place] [address] PCP - General Family Medicine 10/18/23 Brea Jj NP [address] [place] [address] PCP - [facility] 07/31/24 Brea Jj NP [address] [place] [address] Nurse Practitioner Family Medicine 10/18/23 Tram Crooks [place]SW [address] [place] [address] Insurance Plan Specialist Roving Hauler 11/14/24 11/15/24 Diana Stephen LSW [address] [place] [address] Insurance Plan Specialist Family Medicine 11/15/24 11/26/24 documented as of this encounter
--- OUTSIDE RECORDS SUMMARY | 2025-05-28 12:06 | XMS_ITS | Encounter Summary ---
Author Organization [facility] Address [address] [facility] [place] [address] Care Team Providers Care Assistant Professor Of Music Name Role Phone Brea Jj DIESEL INSPECTOR Unavailable [phone] Jose M Light MD Primary Care Provider [phone] Brea Jj DIESEL INSPECTOR Unavailable [phone] Tram Crooks RESUME WRITER Unavailable Diana Stephen RESUME WRITER Unavailable Encounter Details Date Type Department Care Team (Late st Contact Info) Description 01/16/2024 Orders Only [facility] [address] [place] [address] Brea Jj NP [address] [place] [address] Social History Tobacco Use Types Packs/Day Years [...] Office Visit [facility] [address] [place] [address] Brea Jj NP [address] [place] [address] documented as of this encounter Procedures Procedure [...] on filedocumented in this encounter Care Teams Assistant Professor Of Music Relationship Specialty Start Date End Date Jose M Light MD [address] [place] [address] PCP - General Family Medicine 10/18/23 Brea Jj NP [address] [place] [address] PCP - [facility] 07/31/24 Brea Jj NP [address] [place] [address] Nurse Practitioner Family Medicine 10/18/23 Tram Crooks, RESUME WRITER [address] [place] [address] Family Nurse Rn Med Surg 11/14/24 11/15/24 Diana Stephen, [facility] [address] [place], [place] [address] Family Nurse Family Medicine 11/15/24 11/26/24 documented as of this encounter
--- OUTSIDE RECORDS SUMMARY | 2025-05-28 12:06 | XMS_ITS | Encounter Summary ---
Author Organization [facility] Address [address] [address] Care Team Providers Care Stripping Machine Operator Name Role Phone Brea Jj MD Primary Care Provider [phone] Reason for Visit * Reason Comments Med Refill Encounter Details Date Type Department Care Team ([facility] st Contact Info) Description 10/12/2023 Refill [facility] [address] [place] [phone] Marlene Soto MD [address] [facility] [address] [facility] [place] [address] Benign essential HTN; Coronary-myocardial bridge; Edema of [...] extremities documented in this encounter Care Teams Stripping Machine Operator Relationship Specialty Start Date End Date Brea Jj MD [address] [place] [place] [address] PCP - General 12/24/22 documented as of this encounter
--- OUTSIDE RECORDS SUMMARY | 2025-05-28 12:07 | XMS_ITS | Encounter Summary ---
Author Organization [facility] Address [address] [facility] [place] [address] Care Team Providers Care Explosive Ordnance Technician Name Role Phone Brea Jj WHITING CAN WORKER Unavailable [phone] Jose M Light MD Primary Care Provider [phone] Brea Jj WHITING CAN WORKER Unavailable [phone] Encounter Details Date Type Department Care Team (Late st Contact Info) Description 05/28/2025 Bamboo flowsheet [facility] [address] [place] [address] Brea Jj NP [address] [place] [address] Social History Tobacco Use Types Packs/Day Years [...] [facility] [address] [place] [address] Brea Jj NP [address] [place] [address] documented as of this encounter Visit Diagnoses Not on filedocumented in this encounter Care Teams Explosive Ordnance Technician Relationship Specialty Start Date End Date Jose M Light MD [address] [place] [address] PCP - General Family Medicine 10/18/23 Brea Jj NP [address] [place] [address] PCP - [facility] 07/31/24 Brea Jj NP [address] [place] [address] Nurse Practitioner Family Medicine 10/18/23 documented as of this encounter
--- OUTSIDE RECORDS SUMMARY | 2025-05-28 12:07 | XMS_ITS | Encounter Summary ---
Author Organization [facility] Address [address] [facility] [place] [address] Care Team Providers Care Foundry Melt Supervisor Name Role Phone Brea Jj NP Unavailable [phone] Jose M Light MD Primary Care Provider [phone] Brea Jj NP Unavailable [phone] Encounter Details Date Type Department Care Team (Late st Contact Info) Description 05/28/2025 Clinisync Result Encounter [facility] External Department Unsolicited Brea Jj NP [address] [place] [address] Social History Tobacco Use Types Packs/Day Years [...] [facility] [address] [place] [address] Brea Jj NP [address] [place] [address] documented as of this encounter Procedures Procedure Name Priority Date/Time Associated Diagnosis Comments [facility] CMP (CMP) (FOR REMOTE [facility] USE) Routine 05/28/2025 10:09 AM EDT ALL THYROID STIM HORMONE Routine 05/28/2025 10:09 AM EDT ALL LIPID PROFILE (FASTING) Routine 05/28/2025 10:09 AM EDT ALL CBC WITH AUTO DIFF Routine 05/28/2025 10:09 AM EDT TBH UA (CLEAN/CATCH) MICROSCOPIC IF INDICATE Routine 05/28/2025 10:01 AM EDT TBH MICROALB CREAT RATIO RANDOM Routine 05/28/2025 10:01 AM EDT documented in this encounter Results * ALL THYROID STIM HORMONE (05/28/2025 10:09 AM EDT) THYROID STIMULATING HORMONE 0.482 0.358 - 3.740 uIU/mL TBH 05/28/2025 10:0 9 AM EDT 05/28/2025 10:10 AM EDT Narrative CLINISYNC - 05/28/2025 11:04 AM EDT us Brea Jj NP [facility]IS[facility]TREVIN Final [facility] * (ABNORMAL) ALL LIPID PROFILE (FASTING) (05/28/2025 10:09 AM EDT) TRIGLYCERIDES 119 <=150 mg/dL TBH CHOLESTEROL 133 <=200 mg/dL TBH HDL CHOLESTEROL 76(H) 40 - 60 mg/dL TBH Comment: > or =60 mg/dl - LOW CARDIOVASCULAR RISK <40 mg/dl - HIGH CARDIOVASCULAR RISK LDL CHOLESTEROL CALCULATED 34.0 mg/dL TBH Comment: <100 mg/dl OPTIMAL 100-129 mg/dl NEAR OR ABOVE OPTIMAL 130-159 mg/dl BORDERLINE HIGH 160-189 mg/dl HIGH >190 mg/dl VERY HIGH VLDL CHOLESTEROL 23.8 mg/dL TBH CHOL HDL RATIO 1.8 TBH Comment: 3.3 - 4.4 LOW RISK 4.4 - 7.1 AVERAGE RISK 7.1 - 11.0 MODERATE RISK >11.0 HIGH RISK 05/28/2025 10:0 9 AM EDT 05/28/2025 10:10 AM EDT Narrative CLINISYNC - 05/28/2025 11:04 AM EDT us Brea Jj NP CLINISYNC Final Result [facility]IN[facility] TB * (ABNORMAL) [facility]CF CMP (CMP) (FOR REMOTE [facility] USE) (05/28/2025 10:09 AM EDT) SODIUM 135(L) [...] 0.55 - 1.02 mg/dL TBH TBH EGFR-AF CUBAN 14(L) >=60 mL/min/1. 73m 2 TBH TBH EGFR-NON AF CUBAN 12(L) >=60 mL/min/1. 73m 2 TBH BUN CREATININE RATIO 23.4 TBH CALCIUM 9.5 8.5 - 10.1 mg/dL TBH BILIRUBIN TOTAL 0.4 0.2 - 1.0 mg/dL TBH ASPARTATE AMINO TRANSFERASE 13(L) 15 - 37 U/L TBH ALANINE AMINOTRANSFERASE 19 14 - 59 U/L TBH ALKALINE PHOSPHATASE 75 46 - 116 U/L TBH TOTAL PROTEIN 7.8 6.4 - 8.2 g/dL TBH ALBUMIN LEVEL 3.4 3.4 - 5.0 g/dL TBH GLOBULIN 4.4 g/dL TBH ALBUMIN GLOBULIN RATIO 0.8 TBH 05/28/2025 10:0 9 AM EDT 05/28/2025 10:10 AM EDT Narrative CLINISYNC - 05/28/2025 11:04 AM EDT us Brea Jj NP CLINISYNC Final Result [facility] * (ABNORMAL) ALL CBC WITH AUTO DIFF (05/28/2025 10:09 AM EDT) TB WBC 11.5(H) 4.0 - 11.0 10 3/uL TBH TBH RBC 4.73 4.20 - 5.40 10 6/uL TBH TBH HGB 14.4 12.0 - 16.0 g/dL TB TB HCT 42.9 36.0 - 48.0 % TBH TB MCV 90.7 81.0 - 99.0 fL TBH [...] - 05/28/2025 10:16 AM EDT Brea Jj NP CLINISYNC Final Result Performing Organization Address [facility] de Phone Number [facility] * [facility]H MICROALB CREAT RATIO RANDOM (05/28/2025 10:01 AM EDT) MICROALBUMIN URINE RANDOM <1.3 <=30.0 mg/dL TB CREATININE URINE RANDOM 45.39 20.00 - 300.00 mg/dL TBH 05/28/2025 10:0 1 AM EDT 05/28/2025 10:10 AM EDT Narrative CLINISYNC - 05/28/2025 10:26 AM EDT Brea Jj NP CLINISYNC Final Result Performing Organization Address [facility] de Phone Number CLINISYDE TB * (ABNORMAL) TBH UA (CLEAN/CATCH) MICROSCOPIC [...] 10:10 AM EDT Narrative CLINISYNC - 05/28/2025 10:17 AM EDT us Brea Jj NP CLINISYNC Final Result CLINIS[facility]NC TB documented in this encounter Visit Diagnoses Not on filedocumented in this encounter Care Teams Foundry Melt Supervisor Relationship Specialty Start Date End Date Jose M Light MD [address] [place] [address] PCP - General Family Medicine 10/18/23 Brea Jj NP [address] [place] [address] PCP - [facility] 07/31/24 Brea Jj NP [address] [place] [address] Nurse Practitioner Family Medicine 10/18/23 documented as of this encounter
--- NOTE | 2025-05-28 12:26 | ECG_ITS ---
[facility] Test Date: 2025-05-28 Pat Name: ALIYA CONDON Department: Room: - Gender: Female Capsule Machine Operator: : 1965 Requested By: 1030 Order Number: [id number] Reading MD: LATRICE PELAYO M.D. Measurements Intervals [place] Rate: 89 P: 49 [place]: 134 QRS: 58 QRSD: 88 T: 49 QT: 328 QTc: 375 Interpretive Statements 1100 Sinus rhythm 4068 Nonspecific Twave abnormality 9130 borderline ECG Compared to ECG 03/31/2024 20:56:45 No significant changes Electronically Signed On 05-28-2025 20:49:04 EDT by LATRICE PELAYO M.D.
--- NOTE | 2025-05-28 12:27 | ED.GENADUL1 ---
HPI HPI - General Adult General Chief complaint: Weakness Stated complaint: ABNORMAL LAB VALUES Time Seen by Provider: 05/28/25 12:01 Source: patient Mode of arrival: walk-in Limitations: no limitations History of Present Illness HPI narrative: 59-year-old female presents for nausea vomiting and diarrhea. She has had this for 4 days and she saw her PCP today in the office. Outpatient blood work was ordered and she was called and told to come here for dehydration. Her BUN is 92 and creatinine 3.9. No hematemesis or blood in her stool. She has not been around anybody who has been ill. She feels weak. Related Data Home Medications ?Medication ?Instructions ?Recorded ?Confirmed albuterol sulfate 90 mcg/actuation 2 inh inhalation Q4H PRN shortness 03/31/24 05/28/25 aerosol inhaler of breath or wheezing aspirin 81 mg tablet,delayed 81 mg PO DAILY 03/31/24 05/28/25 release atorvastatin 40 mg tablet 40 mg PO DAILY 03/31/24 05/28/25 buspirone 15 mg tablet 15 mg PO BID 03/31/24 05/28/25 calcium 600 mg (as 1 tab PO BID 03/31/24 05/28/25 carbonate)-vitamin D3 5 mcg (200 unit) tablet celecoxib 200 mg capsule 200 mg PO Q24H 03/31/24 05/28/25 clonazepam 0.5 mg tablet 0.5 mg PO BEDTIME 03/31/24 05/28/25 duloxetine 60 mg capsule,delayed 60 mg PO DAILY 03/31/24 05/28/25 release ferrous sulfate 325 mg (65 mg mg 03/31/24 iron) tablet (FeroSul) fluticasone propionate 110 2 inh inhalation DAILY 03/31/24 05/28/25 mcg/actuation HFA aerosol inhaler furosemide 20 mg tablet 20 mg PO DAILY 03/31/24 05/28/25 gabapentin 300 mg capsule 300 mg PO DAILY 03/31/24 05/28/25 glycopyrrolate 9 mcg-formoterol 2 inh inhalation Q12H 03/31/24 05/28/25 4.8 mcg HFA aerosol inhaler (Bevespi Aerosphere) ipratropium 0.5 mg-albuterol 3 mg 3 ml inhalation Q6H 03/31/24 05/28/25 (2.5 mg base)/3 mL nebulization soln lamotrigine 25 mg tablet 50 mg PO BEDTIME 03/31/24 05/28/25 lisinopril 20 1 tab PO DAILY 03/31/24 05/28/25 mg-hydrochlorothiazide 25 mg tablet multivitamin 1 tab PO DAILY 03/31/24 05/28/25 pioglitazone 15 mg tablet 15 mg PO DAILY 03/31/24 05/28/25 potassium chloride 10 mEq 10 meq PO DAILY 03/31/24 05/28/25 tablet,extended release pramipexole 0.5 mg tablet 0.5 mg PO BEDTIME 03/31/24 05/28/25 theophylline 300 mg 450 mg PO Q24H 03/31/24 05/28/25 tablet,extended release,12 hr metoprolol succinate 25 mg 25 mg PO DAILY 05/28/25 05/28/25 tablet,extended release 24 hr pantoprazole 40 mg tablet,delayed 40 mg PO DAILY 05/28/25 05/28/25 release theophylline 300 mg 300 mg PO QDAY 05/28/25 05/28/25 capsule,extended release 24 hr Allergies Allergy/AdvReac Type Severity Reaction Status Date / Time No Known Drug Allergies Allergy Verified 05/28/25 12:04 Opioid HPI Opioid Management Most Recent Opioid Data: Last Pain Scale 10 03/31/24, 20:51 Review of Systems ROS Narrative A ten point review of systems is negative except as noted above. [facility] Medical History (Updated 05/28/25 @ 16:59 by Quirino Mckee MD) COPD (chronic obstructive pulmonary disease) ?J44.9 - Chronic obstructive pulmonary disease, unspecified (ICD-10) Hyperlipemia ?E78.5 - Hyperlipidemia, unspecified (ICD-10) HTN (hypertension) ?I10 - Essential (primary) hypertension (ICD-10) delivery delivered ?O82 - Encounter for delivery without indication (ICD-10) Social History (Updated 05/28/25 @ 14:34 by Jaycee Leon) Within the past year, how often did you have a drink containing alcohol: never Score interpretation: A score less than 3 is consistent with normal alcohol consumption. 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 General: The patient appears well and in no apparent distress. Patient is resting comfortably on cart. Skin: Warm, dry, no pallor noted. There is no rash noted. Head: Normocephalic, atraumatic Eye: Normal conjunctiva, no drainage Ears, Nose, Mouth, and Throat: oral mucosa is mildly dry. Nares patent. Cardiovascular: Regular Rate and Rhythm Respiratory: Patient is in no distress, no accessory muscle use, lungs are clear to auscultation, no wheezing, rales or rhonchi Back: non-tender GI: Soft and nontender Musculoskeletal: The patient has no evidence of calf tenderness, no pitting edema, symmetrical pulses noted bilaterally Neurological: A&O, normal speech Psychiatric: Cooperative Constitutional Vital Signs, click to edit/add: Last Vital Signs Temp 98 F 05/28/25 12:05 Pulse 86 05/28/25 17:20 Resp 13 05/28/25 17:20 BP 110/50 05/28/25 17:51 Pulse Ox 97 05/28/25 12:19 O2 Del Method Nasal Cannula 05/28/25 12:19 O2 Flow Rate 3 05/28/25 12:19 Course Vital Signs Vital signs: Vital Signs Temperature 98 F 05/28/25 12:05 Pulse Rate 97 H 05/28/25 12:05 Respiratory Rate 18 05/28/25 12:05 Blood Pressure 83/51 L 05/28/25 12:05 Pulse Oximetry 97 05/28/25 12:05 Oxygen Delivery Method Nasal Cannula 05/28/25 12:05 Oxygen Delivery Flow Rate 3 05/28/25 12:05 Temperature 98 F 05/28/25 12:05 Pulse Rate 86 05/28/25 17:20 Respiratory Rate 13 05/28/25 17:20 Blood Pressure 110/50 05/28/25 17:51 Pulse Oximetry 97 05/28/25 12:19 Oxygen Delivery Method Nasal Cannula 05/28/25 12:19 Oxygen Delivery Flow Rate 3 05/28/25 12:19 Medical Decision Making [facility] Narrative Medical decision making narrative: The patient was found to have acute kidney injury. This appears to be secondary to volume loss from diarrhea and vomiting. She also happens to be on diuretics including Lasix and hydrochlorothiazide. CT scan shows incidental gallstones, no acute findings. She was found to be hypotensive upon arrival but after she has received 3 L of saline her pressures up into the 90s systolic. Case was discussed with Dr. Yu who request the patient be transferred to [facility]. I spoke to the hospitalist there who accepts the patient. She is stable and agreeable for transfer. Differential Diagnosis Differential Diagnosis: Dehydration, vomiting, acute kidney injury, electrolyte imbalance Lab Data Lab results reviewed: Yes I reviewed the patient's lab results Labs: Lab Results 05/28/25 05/28/25 05/28/25 Range/Units 12:15 15:28 16:24 WBC 10.9 (4.0-11.0) 10^3/uL RBC 4.71 (4.20-5.40) 10^6/uL Hgb 13.9 (12.0-16.0) g/dL Hct 41.7 (36.0-48.0) % MCV 88.5 (81.0-99.0) fL MCH 29.5 (26.7-34.0) pg MCHC 33.3 (29.9-35.2) g/dL RDW 15.1 H (11.0-15.0) % Plt Count 189 (150-450) 10^3/uL MPV 12.9 (9.5-13.5) fL Neut % (Auto) 77.7 H (43.0-75.0) % Lymph % (Auto) 11.9 L (20.5-60.0) % Robertson % (Auto) 8.4 (1.7-12.0) % Eos % (Auto) 1.4 (0.9-7.0) % Baso % (Auto) 0.2 (0.2-2.0) % Neut # (Auto) 8.5 H (1.4-6.5) 10^3/uL Lymph # (Auto) 1.3 (1.2-3.8) 10^3/uL Robertson # (Auto) 0.9 H (0.3-0.8) 10^3/uL Eos # (Auto) 0.2 (0.0-0.7) 10^3/uL Baso # (Auto) 0.0 (0.0-0.1) 10^3/uL Abs Immat Gran (auto) 0.04 H (0.00-0.03) 10^3/uL Imm/Tot Granulo (auto) 0.4 (0.0-0.5) % Sodium 133 L 138 (136-145) mmol/L Potassium 4.7 4.7 (3.5-5.1) mmol/L Chloride 97 L 104 (98-107) mmol/L Carbon Dioxide 23.1 27.0 (21.0-32.0) mmol/L Anion Gap 17.6 11.7 BUN 91.0 H* 82.0 H* (7.0-18.0) mg/dL Creatinine 3.70 H 3.14 H (0.55-1.02) mg/dL Est GFR ( Amer) 15 L 18 L (>=60 mL/min/1.73m^2) Est GFR (Non-Af Amer) 12 L 15 L (>=60 mL/min/1.73m^2) BUN/Creatinine Ratio 24.6 26.1 Glucose 153 H 114 H (74-106) mg/dL Calcium 9.3 8.4 L (8.5-10.1) mg/dL Urine Color Lt. yellow (YELLOW) Urine Clarity Clear (CLEAR) Urine pH 6.0 (5.0-9.0) Ur Specific [place] 1.010 (1.005-1.025) Urine Protein Negative (NEG/TRACE) mg/dL Urine Glucose (UA) Negative (NEGATIVE) mg/dL Urine Ketones Negative (NEGATIVE) mg/dL Urine Occult Blood Negative (NEGATIVE) Urine Nitrite Negative (NEGATIVE) Urine Bilirubin Negative (NEGATIVE) Urine Urobilinogen 0.2 (0.2-1.0) EU/dL Ur Leukocyte Esterase Negative (NEGATIVE) Urine RBC None seen (0-2) #/HPF Urine WBC None seen (NONE SEEN) #/HPF Ur Squamous Epith Cells None seen (NONE/RARE) #/LPF Urine Crystals None seen (None Seen) #/HPF Urine Bacteria Trace A (NONE SEEN) #/HPF Urine Casts None seen (NONE SEEN) #/LPF Urine Mucus None seen (NONE SEEN) Imaging Data CT scan - abdomen: Radiologist's impression: ITS Impressions Abdomen/Pelvis CT 05/28/25 15:55 IMPRESSION: No acute process. Cholelithiasis. Impression dictated by: Malcom Andre Jr., D.O. 05/28/2025 4:31 PM Dictation Location: [place] [address] Electronically authenticated by: [id number] Y Date: 05/28/2025 16:31 ECG Data Attestation: I personally reviewed and interpreted this ECG as follows: (EKG on my interpretation shows sinus rhythm with a rate of 89 and no acute change) Discharge Plan Discharge Chief Complaint: Weakness Clinical Impression: Acute kidney injury, Hypotension Patient Disposition: [facility] Time of Disposition Decision: 16:47 Discharge Location: [facility] Condition: Fair Mode of Transportation: EMS
[2025-05-28 12:37] LABS: Hematocrit 41.7 % (36.0-48.0); Hemoglobin 13.9 g/dL (12.0-16.0); Immature Granulocytes Abs Auto 0.04 10^3/uL (0.00-0.03); Immature Granulocytes Pct Auto 0.4 % (0.0-0.5); Lymphocytes Absolute Auto 1.3 10^3/uL (1.2-3.8); Mean Corpuscular HGB Conc 33.3 g/dL (29.9-35.2); Mean Corpuscular Hemoglobin 29.5 pg (26.7-34.0); Mean Corpuscular Volume 88.5 fL (81.0-99.0); Platelet Count 189 10^3/uL (150-450); Red Blood Count 4.71 10^6/uL (4.20-5.40); White Blood Count 10.9 10^3/uL (4.0-11.0)
[2025-05-28] MEDS: 0.9 % SODIUM CHLORIDE 1,000 ML 1000 ML IV ×2 (12:39→13:49)
[2025-05-28 12:52] LABS: Anion Gap 17.6; Calcium 9.3 mg/dL (8.5-10.1); Carbon Dioxide 23.1 mmol/L (21.0-32.0); Chloride 97 mmol/L (98-107); Estimated GFR (African America 15 (>=60 mL/min/1.73m^2); Estimated GFR (Non-African Ame 12 (>=60 mL/min/1.73m^2); Glucose 153 mg/dL (74-106); Potassium 4.7 mmol/L (3.5-5.1); Sodium 133 mmol/L (136-145)
[2025-05-28 12:53] LABS: Blood Urea Nitrogen 91.0 mg/dL (7.0-18.0)
--- NOTE | 2025-05-28 14:36 | PC.NURSE ---
PHYSICIAN NOTIFIED OF BP
[2025-05-28] MEDS: 0.9 % SODIUM CHLORIDE 1,000 ML 999 ML IV (14:51)
[2025-05-28 15:43] LABS: Glucose Urine UA NEGATIVE (NEGATIVE)
--- NOTE | 2025-05-28 15:55 | CT_ITS ---
The [address] [address] Patient Name: ALIYA CONDON MRN: [id number] date: 1965 Sex: F Assigned Patient Location: ER Current Patient Location: ER Accession/Order Number: [id number] Exam Date: 05/28/2025 16:29 Report Date: 05/28/2025 16:31 At the request of: MATTHEW COLLIER MD Procedure: CT abdomen pelvis wo con CT ABDOMEN AND PELVIS WITHOUT INTRAVENOUS CONTRAST: CLINICAL HISTORY: Acute kidney injury COMPARISON: CT abdomen and pelvis 12/20/2023 TECHNIQUE: Spiral images were obtained through the abdomen and pelvis without intravenous contrast. This CT exam was performed using one or more following dose reduction techniques: Automated exposure control, adjustment of the mA and/or kV according to patient size, or use of iterative reconstruction technique. FINDINGS: Lung Bases: [Mild lung scarring.] Organs:Suboptimal evaluation due to lack of IV contrast. Cholelithiasis is present. Liver spleen pancreas appear unremarkable. Small bilateral adrenal adenomas. Kidneys demonstrate no stone or hydronephrosis. Aorta appears normal in caliber. GI: Stomach is grossly unremarkable. Small bowel appears nondilated. No acute colonic abnormality.[ Pelvis:[Urinary bladder and uterus appear unremarkable.] Peritoneum/Retroperitoneum:No free air free fluid or lymphadenopathy.[ Abd wall/Bones:Abdominal wall demonstrates no acute findings. Osseous structures demonstrate degenerative change.[ CT/CT abdomen pelvis wo con IMPRESSION: No acute process. Cholelithiasis. Impression dictated by: Malcom Andre Jr., D.O. 05/28/2025 4:31 PM Dictation Location: [place] [address] Electronically authenticated by: [id number] Y Date: 05/28/2025 16:31
[2025-05-28 16:01] LABS: Cast Seen? NONE SEEN #/LPF (NONE SEEN); Crystals Seen? None Seen #/HPF (None Seen)
[2025-05-28 16:46] LABS: Anion Gap 11.7; Calcium 8.4 mg/dL (8.5-10.1); Carbon Dioxide 27.0 mmol/L (21.0-32.0); Chloride 104 mmol/L (98-107); Estimated GFR (African America 18 (>=60 mL/min/1.73m^2); Estimated GFR (Non-African Ame 15 (>=60 mL/min/1.73m^2); Glucose 114 mg/dL (74-106); Potassium 4.7 mmol/L (3.5-5.1); Sodium 138 mmol/L (136-145)
[2025-05-28 16:49] LABS: Blood Urea Nitrogen 82.0 mg/dL (7.0-18.0)
[2025-05-28] MEDS: 0.9 % SODIUM CHLORIDE 1,000 ML 200 ML IV (17:20)
--- NOTE | 2025-05-28 19:38 | PC.NURSE ---
this patient has been updated with her room number at [facility] and ETA for transport at 22:00 tonight
--- NOTE | 2025-05-28 20:56 | PC.NURSE ---
this patient awake and alert sitting upright on her bed texting on her cell phone, this patient voices no concerns, needs and shows no signs of distress
--- NOTE | 2025-05-28 21:23 | PC.NURSE ---
this patient lying on her left on the bed texting on her cell phone and this patient voices her nausea is better
--- NOTE | 2025-05-28 22:24 | PC.NURSE ---
[facility] crew arrives and I gave this crew patient's paper work and patient report.
--- NOTE | 2025-05-28 22:32 | PC.NURSE ---
i called patient report to [facility] [phone] and spoke with RN Yamel. this patient awake and alert sitting upright and voices no concerns, needs and shows no signs of distress
== END 2025-05-28 22:35 | disposition short-term general hospital (02) ==
PROVIDERS: Emergency Provider Emergency Medicine; PCP Nurse Practitioner
DX: N17.9 Acute kidney failure, unspecified (principal); I95.9 Hypotension, unspecified; G47.33 Obstructive sleep apnea (adult) (pediatric); K21.9 Gastro-esophageal reflux disease without esophagitis; I10 Essential (primary) hypertension; R60.0 Localized edema; E11.9 Type 2 diabetes mellitus without complications; E78.2 Mixed hyperlipidemia; F41.9 Anxiety disorder, unspecified; F32.A Depression, unspecified; F17.200 Nicotine dependence, unspecified, uncomplicated; Z79.899 Other long term (current) drug therapy; K80.20 Calculus of gallbladder without cholecystitis without obstruction
CPT/HCPCS: 36415; 74176; 80048; 80053; 80061; 81001; 81003; 82043; 82570; 84443; 85025; 87045; 87046; 87086; 87427; 87493; 93005; 96361; 96374; 96376; 99285; J2405

== ENCOUNTER 2025-05-29 16:21 | Outpatient (OUT) | payer OTHER, SELFPAY ==
--- OUTSIDE RECORDS SUMMARY | 2025-01-30 04:30 | XMS_ITS ---
Author Organization [facility] [place] Address [address] [place] [address] Care Team Providers Care Mechanical Cad Drafter Name Role Phone Brea Jj CNP Primary Care Provider Unavail able DonaldCalvin Unavailable [phone] Allergies No Known Allergies REASON FOR VISIT [...] Encounter Location Date Provider Diagnosis [facility] [place] [address] [place] [address] 01/30/2025 Calvin Russo Chronic respiratory failure with hypoxia J96.11 ; Paraseptal emphysema J43.8 ; Cigarette nicotine dependence with nicotine-induced disorder F17.219 ; Pulmonary embolism I26.99 ; Obstructive sleep apnea G47.33 ; Diabetes mellitus type 2, controlled E11.9 ; senior care (current) use of inhaled steroids Z79.51 and Obesity, unspecified E66.9 Assessments Encounter Date Diagnosis (ICD Code) Assessment Notes Treatment Notes Treatment Clinical Notes Section Notes 01/30/2025 Chronic respiratory failure with hypoxia (ICD-10 - J96.11) Kerb-jy-qxho encounter performed with the patient to document [...] return in 6 months for longitudinal evaluation. Ufie-jz-bezo encounter performed with the patient to document [...] to manage diabetes in this situation. 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 Cgxe-cl-eduw encounter performed with the patient to document [...] plan to manage diabetes in this situation. watermelon inspector (current) use of i nhaled steroids Patient [...] 50%-Bronchodilator response: None-RV: 114%-T%-DLCO: 59%-Flow-volume loop: Moderate kiexnffmsup08/7/2019-FEV1/FVC: 76%-FEV1: 53%-FEV1: 55%-Bronchodilator response: none-RV: 136%-T%-DLCO:79%-FeNO: 7-Ocyh-pzdxya loop: Moderate restriction06/10/2016-FEV1/FVC: 72%-FEV1: 57%-FVC: 63%-Bronchodilator response: none-RV: 184%-T%-DCO: 81%-Flow-volume loop: Moderate restriction with obstructive pattern Alpha-1 Antitrypsin Screening Date: 03/04/2021 Genotype: MM Progress Notes * Sis MOOREDOB: [birth year] (59 yo F)Acc No.[id number]:01/30/2025 Follow Up Patient: Sis TORRES Provider: Ruthann Russo DO :1965 A ge:59 Y S ex:Female Date:01/30/2025 Address:[address] [place] [address] , [place], [id number] Pcp:Brea Jj, CEMENT BLOCK MAKER Check In:08:13 AM ESTCheck Sol ut:08:52 AM [...] to the rapid weather changes here in [place]. She continues to use supplemental O2 with benefit with activity. She quit smoking again, 2 days ago. She has been having some diarrhea along with N/V. She saw Dr. Eddy @ [facility]. There are plans for colonoscopy, but patient [...] nervous. Patient is under the care of [facility] Cardiology & [facility] Hematology. * ROS: G eneral/Constitutional: Fever or [...] failure with hypoxia Modified On:02/01/2024U Status:confirmed Z79.51 senior care (current) use of inhaled steroids Modified On:02/01/2024U [...] hypoxia P rocedure: Six minute walk Notes: Kmaq-ou-zuyl encounter performed with the patient to document [...] 01/30/2025 Cessation counseling provided 0 01/30/2025 B [place] ACTION PLAN Above Normal BMI Follow-up D ietary management education, guidance, and counseling * Follow Up: 6 Months (Reason: COPD, O2) * * Sign off status: Completed Visit Status: C HK (Check Out) true * Provider: Ruthann Russo DO Date: 0 01/30/2025 Generated for Joe landers/Angelica/Jamessmitting on: 0 05/29/2025 04:23 PM EDT History and Physical Notes * HPI [...] nervous. Patient is under the care of [facility] Cardiology & [facility] Hematology. Examination Category Sub-Category Detail Notes Category Not es Exam GENERAL APPEARANCE: In no acute distress Skin Normal Mouth [place] and moist. Dodie tulous. No oral candidiasis [...]
--- OUTSIDE RECORDS SUMMARY | 2025-02-19 04:52 | XMS_ITS ---
Author Organization [facility] in [place] Address [address] [place] [address] Care Team Providers Care Hoop Maker Name Role Phone Brea Jj CNP Primary Care Provider Unavail able Calvin Russo Unavailable [phone] REASON FOR VISIT SOB Medications Medication SIG (Take, Route, Fr equency, Duration) Notes Start Date End Date Status predniSONE 20 MG 3 tabs x 3 days, 2 t abs x 3 days, 1 tab x 3 days Orally Once a day for 9 days 02/19/2025 Active Encounters Encounter Location Date Provider Diagnosis Pulmonary Medicine [address] [address] 02/19/2025 Calvin Russo Chronic obstructive pulmonary disease with (acute) exacerbation J44.1 Assessments Encounter Date Diagnosis (ICD Code) Assessment Notes Treatment Notes Treatment Clinical Notes Section Notes 02/19/2025 Chronic obstructive pulmonary disease with (acute) exacerbation (ICD-10 - J44.1) Plan Of Treatment Medication Medication Name Sig Start Date Stop Date Notes predniSONE 20 MG 3 tabs x 3 days, 2 t abs x 3 days, 1 tab x 3 days Orally Once a day for 9 days 02/19/2025 Progress Notes * Sis MOOREDOB: [birth year] (59 yo F)Acc No.[id number]:02/19/2025 Patient: Sis TORRES :1965 A ge:59 Y S ex:Female Address:[address] [place] [address] , [place] [address] * Refills Start predniSONE Tablet, 20 MG, Orally, 18, 3 tabs x 3 days, 2 tabs x 3 days, 1 tab x 3 days, Once a day, 9 days, Refills=0 Subjective: * Chief Complaints: * S OB * Medical History: * Surgical History: * Hospitalization/Major Diagno stic Procedure: * Medications: Objective: * Vitals: * Physical Examination: Assessment: * Assessment: 1. C hronic obstructive pulmonary disease with (acute) exacerbation - J44.1 (Primary) ? Plan: * Treatment: * Procedure Codes: * true * Date: Generated for Joe landers/Angelica/Ofeliaitting on: 0 05/29/2025 04:24 PM EDT
--- OUTSIDE RECORDS SUMMARY | 2025-05-14 11:19 | XMS_ITS ---
Author Organization [facility] in [place] Address [address] [place] [address] Care Team Providers Care Radiologist Physician Name Role Phone Angelyheatherlloyd NUNEZBrea Primary Care Provider Unavail able Calvin Russo Unavailable [phone] REASON FOR VISIT Appointment/Letter Medications Medication SIG (Take, Route, Frequency, Duration) Notes Start Date End Date Status Bevespi Aerosphere 9-4.8 MCG/ACT 2 puffs Inhalation BID for 90 days Dispense #3 inhalers Active Theophylline ER 300 mg 1 + 1/2 tablets o ral BID for 90 days Active Fluticasone Propionate HFA 110 MCG/ACT 2 puffs Inhalation BID for 90 days Rinse after use ; Dispense #3 inhalers 10/09/2024 Active predniSONE 20 MG 3 tabs x 3 days, 2 tabs x 3 days, 1 tab x 3 days Orally Once a day for 9 days Take with food 02/19/2025 Active Albuterol Sulfate HFA 108 (90 Base) MCG/ACT 2 puffs as needed for SOB Inhalation every 4 hrs for 90 days Dispense #3 inhalers Active Ipratropium-Albuterol 0.5-2.5 (3) MG/3ML 3mL Inhalation QID for 90 days Active Encounters Encounter Location Date Provider Diagnosis Pulmonary Medicine [place] [address] [place] [address] 05/14/2025 Calvin Russo Paraseptal emphysema J43.8 Assessments Encounter Date Diagnosis (ICD Code) Assessment Notes Treatment Notes Treatment Clinical Notes Section Notes 05/14/2025 Paraseptal emphysema (ICD-10 - J43.8) Plan Of Treatment Medication Medication Name Sig Start Date Stop Date Notes Bevespi Aerosphere 9-4.8 MCG/ACT 2 puffs Inhalation BID for 90 days Theophylline ER 300 mg 1 + 1/2 tablets o ral BID for 90 days Fluticasone Propionate HFA 1 10 MCG/ACT 2 puffs Inhalation BID for 90 days 10/09/2024 predniSONE 20 MG 3 tabs x 3 days, 2 t abs x 3 days, 1 tab x 3 days Orally Once a day for 9 days 02/19/2025 Albuterol Sulfate HFA 108 (9 0 Base) MCG/ACT 2 puffs as needed for SOB Inhalation every 4 hrs for 90 days Ipratropium-Albuterol 0.5-2. 5 (3) MG/3ML 3mL Inhalation QID for 90 days Progress Notes * Sis MOOREDOB: [birth year] (59 yo F)Acc No.[id number]:05/14/2025 Patient: Pam Sis FERRARI :1965 A ge:59 Y S ex:Female Address:[address] [place] [address] , [place], [address] * Refills Refill Albuterol Sulfate HFA Aerosol Solution, 108 (90 Base) MCG/ACT, Inhalation, 3 each, 2 puffs as needed for SOB, every 4 hrs, 90 days, Refills=4 Refill Bevespi Aerosphere Aerosol, 9-4.8 MCG/ACT, Inhalation, 3 each, 2 puffs, BID, 90 days, Refills=4 Refill Fluticasone Propionate HFA Aerosol, 110 MCG/ACT, Inhalation, 3 each, 2 puffs, BID, 90 days, Refills=4 Refill Theophylline ER Tablet Extended Release 12 Hour, 300 mg, oral, 270 tablets, 1 + 1/2 tablets, BID, 90 days, Refills=4 Refill Ipratropium-Albuterol Solution, 0.5-2.5 (3) MG/3ML, Inhalation, 1080 ML, 3mL, QID, 90 days, Refills=4 Refill predniSONE Tablet, 20 MG, Orally, 18, 3 tabs x 3 days, 2 tabs x 3 days, 1 tab x 3 days, Once a day, 9 days, Refills=5 Subjective: * Chief Complaints: * A ppointment/Letter * Medical History: * Surgical History: * Hospitalization/Major Diagno stic Procedure: * Medications: Objective: * Vitals: * Physical Examination: Assessment: * Assessment: 1. Yanely singh emphysema - J43.8 (Primary) Plan: * Treatment: * Procedure Codes: * true * Date: Generated for Joe landers/Angelica/Ofeliaitting on: 05/29/2025 04:23 PM EDT
--- OUTSIDE RECORDS SUMMARY | 2025-05-28 09:00 | XMS_ITS | Encounter Summary ---
Author Organization [facility] Address [address] [facility] [place] [address] Care Team Providers Care Calendering Supervisor Name Role Phone Brea Jj PRE WAVE ASSEMBLER Unavailable [phone] Jose M Light MD Primary Care Provider [phone] Brea Jj PRE WAVE ASSEMBLER Unavailable [phone] Reason for Visit * Reason Comments Diabetes Encounter Details Date Type Department Care Team (Late st Contact Info) Description 05/28/2025 9:00 AM EDT [facility] [address] [place] [address] Brea Jj NP [address] [place] [address] Vomiting and diarrhea (Primary Dx); Restless leg syndrome; ROLANDO (obstructive sleep apnea); Essential (primary) hypertension ; Gastroesophageal reflux disease without esophagitis; Edema of both lower extremities; Type 2 diabetes mellitus without complication, without long-term current use of insulin (HCC); Class 2 severe obesity due to excess calories with serious comorbidity and body mass index (BMI) of 37.0 to 37.9 in adult ([facility]); Mixed hyperlipidemia ; Anxiety and depression ; Primary hypertension Social History Tobacco Use Types Packs/Day Years [...] Notes * Brea Jj NP - 05/28/2025 12:50 PM EDTAssociated Problem(s): Vomiting and diarrhea Does have low blood pressure, which is likely related to dehydration as well as starting her b aleks recently by cardiology We will order some labs and see where things stand as well * AVI LONG - 05/28/2025 9:00 AM EDT Pt has been sick since Tuesday- nausea, vomiting, diarrhea, headaches, no sweats, no chills, weakness, fatigue, body aches, no fevers Pt has been taking pepto and tylenol * Breayasmany Jj, PRE WAVE ASSEMBLER - 05/28/2025 9:00 AM EDT Images from the original note were not included. Sis Moore is a 59 y.o. female presents with chief complaint of Diabetes HPI: Pt has been sick since Tuesday- nausea, vomiting, diarrhea, headaches, no sweats, no chills, weakness, fatigue, body aches, no fevers Pt has been taking pepto and tylenol She is feeling week in general, no fever or chills States diarrhea and vomiting did stop, trying to drink fluids, not a lot of appetite Feels stressed her had multiple complications from cardiac procedure, he has been in [place] several weeks now, she only goes up once a week to see him . Her daughter is POA SUBJECTIVE: MEDICATIONS: Current Outpatient Medications Medication Instructions aspirin (ASPIRIN LOW DOSE) 81 mg, Oral, Daily atorvastatin (LIPITOR) 40 mg, Oral, Nightly benzonatate (TESSALON) 100 mg, 3 times daily PRN Bevespi Aerosphere 9-4.8 MCG/ACT aerosol 2 puffs, 2 times daily busPIRone (BUSPAR) 15 mg, Oral, 2 times daily Calcium Carb-Cholecalciferol 600-5 MG-MCG tablet 1 tablet, 2 times daily celecoxib (CELEBREX) 200 mg, Daily clonazePAM (KLONOPIN) 0.5 mg, Oral, Nightly dicyclomine (Bentyl) 20 MG tablet See Instructions, when needed, Refills(s) 0 doxepin (SINEQUAN) 10 mg, Oral, Nightly DULoxetine (CYMBALTA) 60 mg, Oral, Daily FeroSul 325 mg, Daily with breakfast Flovent HFA 110 MCG/ACT inhaler 2 puffs, 2 times daily fluocinonide (Lidex) 0.05 % cream Apply thin layer (1 g) to lower legs, up to twice a day when flared, do not use one the face, groin, or underarms, 30 day supply furosemide (LASIX) 20 mg, Oral, Daily gabapentin (NEURONTIN) 300 mg, Oral, Daily guaiFENesin (Mucinex) 600 MG 12 hr tablet TAKE ONE TABLET BY MOUTH TWICE A DAY NEEDED FOR CONGESTION guaiFENesin-codeine (Robitussin-AC) 100-10 MG/5ML syrup TAKE 2 TEASPOONSFUL (10ML) BY MOUTH EVERY 6HOURS NEEDED ipratropium-albuterol (Duo-Neb) 0.5-2.5 mg/3 mL nebulizer solution INHALE 3ML FOUR TIMES A DAY lamoTRIgine (LAMICTAL) 50 mg, Oral, Nightly lisinopril-hydroCHLOROthiazide 20-25 MG tablet 1 tablet, Oral, Daily metoprolol succinate XL (TOPROL-XL) 25 mg, Oral, Daily Multiple Vitamin (Multivitamin) tablet 1 tablet, Daily ondansetron ODT (ZOFRAN-ODT) 4 mg, Oral, Every 8 hours PRN OneTouch Ultra test strip USE ONCE DAILY DIRECTED pantoprazole (PROTONIX) 40 mg, Oral, Daily before breakfast, Do not crush, chew, or split. pioglitazone (ACTOS) 15 mg, Oral, Daily potassium chloride CR (Klor-Con) 10 MEQ ER tablet 10 mEq, Oral, Daily pramipexole (MIRAPEX) 0.5 mg, Oral, Nightly predniSONE (Deltasone) 20 MG tablet TAKE THREE TABLETS BY MOUTH DAILY FOR 3 DAYS,THEN 2 TABS FOR 3 DAYS, THEN 1 TAB FOR 3 DAYS. theophylline ER (Franki-Dur) 300 MG 12 hr tablet TAKE 1 12 TABLETS BY MOUTH EVERY 12 HOURS Ventolin HFA 108 (90 Base) MCG/ACT inhaler INHALE 2 PUFFS BY MOUTH FOR SHOTNESS OF BREATH EVERY 4 HOURS NEEDED ALLERGIES: No Known Allergies REVIEW OF SYMPTOMS: Review of Systems Constitutional: Positive for fatigue. Negative for appetite change, chills and fever. HENT: Negative for congestion, ear pain and sore throat. Eyes: Negative for pain, discharge, redness and visual disturbance. Respiratory: Negative for cough, shortness of breath and wheezing. Cardiovascular: Negative for chest pain, palpitations and leg swelling. Gastrointestinal: Positive for diarrhea, nausea and vomiting. Negative for abdominal pain, blood instool and constipation. Genitourinary: Negative for difficulty urinating, dysuria and frequency. Musculoskeletal: Negative for arthralgias, back pain, joint swelling and myalgias. Skin: Negative for rash and wound. Neurological: Positive for weakness. Negative for dizziness, tremors, seizures, syncope and headaches. Psychiatric/Behavioral: Negative for behavioral problems, self-injury and suicidal ideas. The patient is nervous/anxious. Hematological: Does not bruise/bleed easily. Endocrine: Negative for polydipsia, polyphagia and polyuria. Allergic/Immunologic: Negative for environmental allergies and food allergies. PAST MEDICAL HISTORY Past Medical History: Diagnosis Date Anxiety and depression 10/12/2023 Arthritis Class 2 severe obesity due to excess calories with serious comorbidity in adult ([facility]) 10/19/2023 Mixed hyperlipidemia 10/12/2023 ROLANDO (obstructive sleep apnea) Other insomnia 10/19/2023 Primary hypertension 10/12/2023 Restless leg syndrome 10/12/2023 Type 2 diabetes mellitus without complication, without long-term current use of insulin ([facility]) 10/19/2023 Past Surgical History: Procedure Laterality Date SECTION, LOW TRANSVERSE x2 COLONOSCOPY FOOT SURGERY 01/08/2020 e/o RT foot ganglion cyst, repair tendon HEART CATH 2015 WNL KNEE SURGERY Left arthroscopy TUBAL LIGATION Bilateral BTL family history includes COPD in her mother; Heart disease in her father. OBJECTIVE: Visit Vitals BP 92/60 (BP Location: Left arm, Patient Position: Sitting, BP Cuff Size: Large adult) Pulse 83 Temp 98.1 ??F (Temporal) Resp 20 Wt 251 lb 12.8 oz SpO2 96% BMI 37.18 kg/m?? OB Status Postmenopausal Smoking Status Former BSA 2.36 m?? Physical Exam Vitals and nursing note reviewed. Constitutional: General: She is not in acute distress. Appearance: Normal appearance. She is obese. She is not ill-appearing. HENT: Head: Normocephalic and atraumatic. Right Ear: External ear normal. Left Ear: External ear normal. Nose: Nose normal. Mouth/Throat: Mouth: Mucous membranes are moist. Eyes: Extraocular Movements: Extraocular movements intact. Conjunctiva/sclera: Conjunctivae normal. Neck: Vascular: No carotid bruit. Cardiovascular: Rate and Rhythm: Normal rate and regular rhythm. Pulses: Normal pulses. Heart sounds: Normal heart sounds. No murmur heard. Pulmonary: Effort: Pulmonary effort is normal. Breath sounds: Normal breath sounds. No wheezing or rhonchi. Abdominal: General: Bowel sounds are normal. There is no distension. Palpations: Abdomen is soft. There is no mass. Tenderness: There is no abdominal tenderness (generalized tenderness). Musculoskeletal: General: Normal range of motion. Cervical [...] AND PLAN: Follow up in about 3 months (around 08/28/2025) for Recheck. Problem List Items Addressed This Visit Restless leg syndrome - Primary Current medication: pramipexole Relevant Medications gabapentin (Neurontin) 300 MG capsule pramipexole (Mirapex) 0.5 MG tablet Anxiety and depression Stressors with her health and husbands health as well Current meds: buspar, klonopin prn, duloxetine, lamotrigine Relevant Medications busPIRone (Buspar) 15 MG tablet DULoxetine (Cymbalta) [address] capsule lamoTRIgine (LaMICtal) 25 MG tablet Other Relevant Orders TSH Essential (primary) hypertension Please check blood pressure daily and record DASH diet Limit caffeine Take medication as directed Contact office if chest pain, pressure, dizziness, shortness of breath, swelling legs Recommend slow position changes Current med: lisinopril/hydrochlorothiazide, b aleks Relevant Medications aspirin (Aspirin Low Dose) 81 MG EC tablet lisinopril-hydroCHLOROthiazide 20-25 MG tablet Other Relevant Orders Comprehensive metabolic panel Urinalysis with reflex microscopic (clean catch) Microalbumin / creatinine, urine ratio Mixed hyperlipidemia On statin therapy Check labs yearly and prn dose changes Relevant Medications atorvastatin (Lipitor) 40 MG tablet Other Relevant Orders Comprehensive metabolic panel Lipid panel Class 2 severe obesity due to excess calories with serious comorbidity in adult ([facility]) Discussed with patient their BMI (actual, verses recommended). We have also discussed lifestyle modifications: attempts to perform physical activity as chronic conditions allow, also to monitor dietary intake: increasing protein/fruits/veggies and lowering carb intake (unless contraindicated). Limit sodas, juices, and sugary drinks. Type 2 diabetes mellitus without complication, without long-term current use of insulin ([facility]) Check blood sugars daily, notify [...] asa, statin, yusuf/hydrochlorothiazide, pioglitazone A1c 6.1% 02/25/25 Relevant Medications aspirin (Aspirin Low Dose) 81 MG EC tablet pioglitazone (Actos) 15 MG tablet Other Relevant Orders POCT glycosylated hemoglobin (Hb A1C) docked device (Completed) Comprehensive metabolic panel Urinalysis with reflex microscopic (clean catch) Microalbumin / creatinine, urine ratio ROLANDO (obstructive sleep apnea) You have a diagnosis of obstructive sleep apnea. It is recommended that you wear your PAP device any time while in bed sleeping. Not using the PAP device can increase your risk of elevated/uncontrolled high blood pressure, atrial fibrillation, heart attack, stroke, or sudden . Relevant Orders CBC and differential Edema of both lower extremities Takes lasix prn Relevant Medications furosemide (Lasix) 20 MG tablet potassium chloride CR (Klor-Con) 10 MEQ ER tablet Other Relevant Orders Comprehensive metabolic panel Gastroesophageal reflux disease without esophagitis Recommendations: freq small meals, nothing to eat or drink at least 2 hours prior to bed, limit caffeine, alcohol, as well as spicy foods Meds to limit or avoid if possible: NSAIDS Elevate HOB if possible Current meds: PPI Relevant Medications pantoprazole (ProtoNix) 40 MG EC tablet Other Relevant Orders CBC and differential Vomiting and diarrhea Does have low blood pressure, which is likely related to dehydration as well as starting her b aleks recently by cardiology We will order some labs and see where things stand as well Relevant Medications ondansetron ODT (Zofran-ODT) 4 MG disintegrating tablet Other Relevant Orders Urine culture (clean catch) Other Visit Diagnoses Primary hypertension Relevant Medications lisinopril-hydroCHLOROthiazide 20-25 MG tablet * Brea Jj NP - 05/28/2025 6:19 [...] excess calories with serious comorbidity in adult ([facility]) Discussed with patient their BMI [...] without complication, without long-term current useof insulin ([facility]) Check blood sugars daily, notify [...] 08/28/2025 9:00 AM EDT Office Visit [facility] [address] [place] [address] Brea Jj NP [address] [place] [address] Scheduled Orders Name Type Priority Associated Diagnoses [...] complication, without long-term current use of insulin ([facility]) documented in this encounter Results * (ABNORMAL) POCT glycosylated hemoglobin (Hb A1C) docked device (05/28/2025 9:15 AM EDT) Hemoglobin A1C 6.3 Blood Venous blood specimen / Unknown 05/28/2025 9:15 AM EDT Brea Jj NP POINT OF CARE TEST ENTER/EDIT O RDERABLES Final Result documented in this encounter Visit Diagnoses Diagnosis Vomiting and diarrhea- Primary Restless leg syndrome Restless legs syndrome (RLS) ROLANDO (obstructive sleep apnea) Obstructive sleep apnea (adult) (pediatric) Essential (primary) hypertension Unspecified essential hypertension Gastroesophageal reflux disease without esophagitis Esophageal reflux Edema of both lower extremities Type 2 diabetes mellitus without complication, without long-term current use of insulin ([facility]) Class 2 severe obesity due to excess calories with serious comorbidity and body mass index (BMI) of 37.0 to 37.9 in adult ([facility]) Mixed hyperlipidemia Mixed hyperlipidemia Anxiety and depression Primary hypertension Unspecified essential hypertension documented in this encounter Care Teams Calendering Supervisor Relationship Specialty Start Date End Date Jose M Light MD [address] [place] [address] PCP - General Family Medicine 10/18/23 Brea Jj NP [address] [place] [address] PCP - [employer] [facility] [employer] 07/31/24 Brea Jj NP [address] [place] [address] Nurse Practitioner Family Medicine 10/18/23 documented as of this encounter
--- OUTSIDE RECORDS SUMMARY | 2025-05-29 16:23 | XMS_ITS | Encounter Summary ---
Author Organization [facility] Address [address] [facility] [place] [address] Care Team Providers Care Gyroscope Technician Name Role Phone Brea Jj CAPTAIN WAITER Unavailable [phone] Jose M Light MD Primary Care Provider [phone] Brea Jj CAPTAIN WAITER Unavailable [phone] Tram Crooks SOCIETY REPORTER Unavailable Diana Stephen SOCIETY REPORTER Unavailable Encounter Details Date Type Department Care Team (Late st Contact Info) Description 10/19/2023 [facility] [address] [place] [address] Brea Jj NP [address] [place] [address] Social History Tobacco Use Types Packs/Day Years [...] Visit [facility] [address] [place] [address] Brea Jj NP [address] [place] [address] documented as of this encounter Visit Diagnoses Not on filedocumented in this encounter Care Teams Gyroscope Technician Relationship Specialty Start Date End Date Jose M Light MD [address] [place] [address] PCP - General Family Medicine 10/18/23 Brea Jj NP [address] [place] [address] PCP - [facility] 07/31/24 Brea Jj NP [address] [place] [address] Nurse Practitioner Family Medicine 10/18/23 Tram Crooks, SOCIETY REPORTER [address] [place] [address] Math Specialist Drapery Rod Assembler 11/14/24 11/15/24 Diana Stephen, SOCIETY REPORTER [address] [place] [facility] [place] [address] Math Specialist Family Medicine 11/15/24 11/26/24 documented as of this encounter
--- OUTSIDE RECORDS SUMMARY | 2025-05-29 16:24 | XMS_ITS | Encounter Summary ---
Author Organization [facility] Address [address] [facility] [place] [address] Care Team Providers Care Professor Of Anthropology Name Role Phone Brea Jj MANAGER COUNCIL Unavailable [phone] Jose M Light MD Primary Care Provider [phone] Brea Jj MANAGER COUNCIL Unavailable [phone] Tram Crooks SKIN PILER Unavailable Diana Stephen SKIN PILER Unavailable [phone] Encounter Details Date Type Department Care [...] [facility] [address] [place] [address] Brea Jj NP [address] [place] [address] documented as of this encounter Procedures Procedure Name Priority Date/Time Associated Diagnosis Comments RT PULMONARY FUNCTION TEST 02/13/2024 9:14 AM EDT documented in this encounter Results * RT PULMONARY FUNCTION TEST (02/13/2024 9:14 AM EDT) Anatomical Region Laterality Modality Other 02/13/2024 9:14 AM EDT Narrative 02/15/2024 7:11 [place] [address] Respiratory Report Signed Patient: SIS MOORE MR#: [id number] : 1965 Acct:[id number] Age/Sex: 58 / F ADM Date: 02/13/24 Loc: LAB Attending Dr: Calvin Russo D.O. Ordering Physician: Calvin Russo D.O. Date of Service: 02/13/24 Procedure(s): RT pulmonary function test Accession Number(s): [id number] cc: [facility] Test Date: 2024-02-13 Pat Name: SIS MOORE Department: Room: - Gender: Female Container Shop Welder: Gerald Caputo RRT : 1965 Requested By: Calvin Russo Order Number: [id number] Reading MD: Calvin Russo Interpretive Statements Pulmonary function testing was completed according to ATS criteria. Findings were considered accurate and reproducible. Both pre- and post-bronchodilator values utilized for spirometry. Spirometry (based on pre-bronchodilator values): -FEV1/FVC: Normal @ 77% -FEV1: Moderately reduced @ 54% -FVC: Severely reduced @ 54% -EGN98-12%: Reduced @ 47% -There is a partial [...] Signed By: 02/15/24 0711 DD/ 0914 TD/TT: Senior It Auditor: Procedure Note Radiology, Radiologist, MD - 02/15/2024 [place] [address] Respiratory Report Signed Patient: SIS MOORE R#: [id number] : 1965Acct:[id number] Age/Sex: 58 / FADM Date: 02/13/24 Loc: LAB Attending Dr: Calvin Russo D.O. Ordering Physician: Calvin Russo D.O. Date of Service: 02/13/24 Procedure(s): RT pulmonary function test Accession Number(s): [id number] cc: [facility] Test Date: 2024-02-13 Pat Name: SIS MOORE Department: Room: - Gender: Female Container Shop Welder: Gerald Caputo RRT : 1965 Requested By: Calvin Russo Order Number: [id number] Reading MD: Calvin Russo Interpretive Statements Pulmonary function testing was completed according to ATS criteria.Findings were considered accurate and reproducible. Both pre- andpost-bronchodilator values utilized for spirometry. Spirometry (based on pre-bronchodilator values): -FEV1/FVC: Normal @ 77% -FEV1: Moderately reduced @ 54% -FVC: Severely reduced @ 54% -WTN31-97%: Reduced @ 47% -There is a partial [...] D.O. Signed By:02/15/24 0711 DD/ 0914 TD/TT: Senior It Auditor: us Generic External Data Provider [facility] Final Result documented in this encounter Visit Diagnoses Not on filedocumented in this encounter Care Teams Professor Of Anthropology Relationship Specialty Start Date End Date Jose M Light MD [address] [place] [address] PCP - General Family Medicine 10/18/23 Brea Jj NP [address] [place] [address] PCP - [facility] 07/31/24 Brea Jj NP [address] [address] Nurse Practitioner Family Medicine 10/18/23 [place] [address] [place] [address] Medical Esthetician Head Neck Surgeon 11/14/24 11/15/24 Diana Stephen LSW [address] [place] [address] Medical Esthetician Family Medicine 11/15/24 11/26/24 documented as of this encounter
--- OUTSIDE RECORDS SUMMARY | 2025-05-29 16:24 | XMS_ITS | Patient Health Record ---
Author Organization [facility] Address [address] [place] [address] Support Name Relationship Address Phone ALIYA CONDON Guarantor Unknown [phone] Reason For Referral No Information Social History [...] Problem Status W/U Status Risk Notes Problem [id number] Primary osteoarthritis of left knee (M17.12) Active confirmed Plan Of Treatment No Information Insurance Providers Payer Name Payer Address Payer Phone Subscriber Number Group Number Insured Name Patient Relationship to Insured Coverage Start Date Coverage End Date Medicaid [place] [address] [facility] [place] [phone] [id number] ALIYA CONDON Self - patient is the insured
--- OUTSIDE RECORDS SUMMARY | 2025-05-29 16:24 | XMS_ITS | Encounter Summary ---
Author Organization [facility] Address [address] [facility] [place] [address] Care Team Providers Care Tire Duster Name Role Phone Brea Jj DAIRY NUTRITION CONSULTANT Unavailable [phone] Jose M Light MD Primary Care Provider [phone] Brea Jj DAIRY NUTRITION CONSULTANT Unavailable [phone] Tram Crooks WINDOW INSTALLATION SUBCONTRACTOR Unavailable Diana Stephen WINDOW INSTALLATION SUBCONTRACTOR Unavailable Encounter Details Date Type Department Care Team (Late st Contact Info) Description 12/21/2023 Orders Only [facility] [address] [place] [address] Brea Jj NP [address] [place] [address] Social History Tobacco Use Types Packs/Day Years [...] Visit [facility] [address] [place] [address] Brea Jj NP [address] [place] [address] documented as of this encounter Procedures Procedure Name Priority Date/Time Associated Diagnosis Comments ELECTROCARDIOGRAM REPORT Routine 024 10:27 AM EST documented in this encounter Results * Electrocardiogram Report (12/20/2023 10:27 AM EST) us Brea Jj NP IN CLINIC/BEDSIDE ORDERABLES Fi nal Result documented in this encounter Visit Diagnoses Not on filedocumented in this encounter Care Teams Tire Duster Relationship Specialty Start Date End Date Jose M Lihgt MD [address] [place] [address] PCP - General Family Medicine 10/18/23 Brea Jj NP [address] [place] [address] PCP - [facility] 07/31/24 Brea Jj NP [address] [place] [address] Nurse Practitioner Family Medicine 10/18/23 Tram Crooks, WINDOW INSTALLATION SUBCONTRACTOR [address] [place] [address] Tool Honing Machine Set Up Operator Electrolysis Engineer 11/14/24 11/15/24 Diana Stephen, SKY [address] [place] [address] Tool Honing Machine Set Up Operator Family Medicine 11/15/24 11/26/24 documented as of this encounter
--- OUTSIDE RECORDS SUMMARY | 2025-05-29 16:24 | XMS_ITS | Encounter Summary ---
Author Organization [facility] Address [address] [facility] [place] [address] Care Team Providers Care Recruiting Administrator Name Role Phone Brea Jj COURSE INSTRUCTOR Unavailable [phone] Jose M Light MD Primary Care Provider [phone] Brea Jj COURSE INSTRUCTOR Unavailable [phone] Tram Crooks DATA MIGRATION CONSULTANT Unavailable Diana Stephen DATA MIGRATION CONSULTANT Unavailable Encounter Details Date Type Department Care Team (Late st Contact Info) Description 01/16/2024 Orders Only [facility] [address] [place] [address] Brea Jj NP [address] [place] [address] Social History Tobacco Use Types Packs/Day Years [...] Office Visit [facility] [address] [place] [address] Brea Jj NP [address] [place] [address] documented as of this encounter Procedures Procedure [...] on filedocumented in this encounter Care Teams Recruiting Administrator Relationship Specialty Start Date End Date Jose M Light MD [address] [place] [address] PCP - General Family Medicine 10/18/23 Brea Jj NP [address] [place] [address] PCP - [facility] 07/31/24 Brea Jj NP [address] [place] [address] Nurse Practitioner Family Medicine 10/18/23 Tram Crooks, DATA MIGRATION CONSULTANT [address] [place] [address] Manager Food Beverage Gift Shop Assistant 11/14/24 11/15/24 Diana Stephen, [facility] [address] [place], [place] [address] Manager Food Beverage Family Medicine 11/15/24 11/26/24 documented as of this encounter
--- OUTSIDE RECORDS SUMMARY | 2025-05-29 16:25 | XMS_ITS | Patient Health Record ---
Author Organization [facility] [place] Address [address] [place] [address] Care Team Providers Care Torpedo Man Name Role Phone Brea Jj CNP Primary Care Provider Unavail able Calvin Gaines Unavailable [phone] Allergies No Known Allergies Results Component Value Reference Range Notes CT lung screening low-dose Reviewed date:05/30/2024 06:26:02 AM Interpretation: Performing Lab: Notes/Report: Source Facility: [place] [address] CT Scan Report Signed Patient: SIS MOORE MR#: [id number] : 1965 Acct:[id number] Age/Sex: 58 / F ADM Date: 05/29/24 Loc: CT Attending Dr: Calvin Gaines D.O. Ordering Physician: Calvin Gaines D.O. Date of Service: 05/29/24 Procedure(s): CT lung screening low-dose Accession Number(s): [id number] cc: Brea Jj NP [place] [address] Patient Name: SIS MOORE MRN: [id number] date: 1965 Sex: F Assigned Patient Location: CT Current Patient Location: CT Accession/Order Number: [id number] Exam Date: 05/29/2024 09:29 Report Date: 05/29/2024 [...] Signed By: 05/29/24 1604 DD/ 1602 TD/TT: Coagulating Drying Supervisor: [place] [address] CT Scan Report Signed Patient: LITO MOORE MR#: [id number] : 1965 Acct:[id number] Age/Sex: 58 / F ADM Date: 05/29/24 Loc: CT Attending Dr: Calvin Gaines D.O. Ordering Physician: Calvin Gaines D.O. Date of Service: 05/29/24 Procedure(s): CT remi g screening low-dose Accession Number(s): [id number] cc: Brea Jj NP [place] [id number] Patient Name: SIS MOORE MRN: [id number] date: 1965 Sex: F Assigned Patient Location: CT Current Patient Location: CT Accession/Order Numb er: [id number] Exam Date: 05/29/2024 09:29 Report Date: 05/29/2024 [...] Signed By: 05/29/24 1604 DD/ 1602 TD/TT: Coagulating Drying Supervisor: CT Chest Low Dose for Screen ing* Reviewed date:05/30/2024 08:45:36 AM Interpretation: Performing Lab: Notes/Report: Reason For Referral No Information Medications Medication [...] Problem Status W/U Status Risk Notes Problem [id number] Chronic obstructive pulmonary disease, unspecified (J44.9) Active confirmed Problem 173274543 Obesity, unspecified (E66.9) Active confirmed Problem Chronic respiratory failure (91634105) Chronic respiratory failure with hypoxia (J96.11) Active confirmed Problem Long-term current use of inhaled steroid (048106683) FDC (current) use of inhaled steroids (Z79.51) Active confirmed Problem Pulmonary embolism (10587767) Pulmonary embolism (I26.99) Active confirmed Problem Coronary artery disease (93014283) Coronary artery disease (I25.10) Active confirmed Problem Obstructive sleep apnea (63505619) Obstructive sleep apnea (G47.33) Active confirmed Problem Mental disorder caused by drug (325920342) Cigarette nicotine dependence with nicotine-induced disorder (F17.219) Active confirmed Problem Iron deficiency anemia (44271074) Iron deficiency anemia (D50.9) Active confirmed Problem Type II diabetes mellitus well controlled (935178547) Diabetes mellitus type 2, controlled (E11.9) Active confirmed Problem Paraseptal emphysema (19842437) Paraseptal emphysema (J43.8) Active confirmed Problem 232333650 Encounter for screening for lung cancer (Z12.2) Active confirmed Problem Secondary pulmonary hypertension (87520041) Other secondary pulmonary hypertension (I27.29) Active confirmed Problem History of COVID-19 (383516724444827 105) History of COVID-19 (Z86.16) Active confirmed [...] Encounter Location Date Provider Diagnosis Pulmonary Medicine [place] [address] [place] [address] 08/01/[address] [facility] Chronic respiratory failure with hypoxia J96.11 ; Paraseptal emphysema J43.8 ; Cigarette nicotine dependence with nicotine-induced disorder F17.219 ; Encounter for screening for malignant neoplasm of respiratory organs Z12.2 ; Pulmonary embolism I26.99 ; Obstructive sleep apnea G47.33 ; Diabetes mellitus type 2, controlled E11.9 ; Encounter for therapeutic drug level monitoring Z51.81 ; FDC (current) use of inhaled steroids Z79.51 and Obesity, unspecified E66.[address] [address] 01/30/[address] 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 and Obesity, unspecified E66.9 Pulmonary Medicine [place] [address] [place] [address] 05/30/2024 [facility] Pulmonary Medicine [place] [address] [place] [address] 10/09/2024 [facility] Paraseptal emphysema J43.8 Pulmonary Medicine [address] [address] 01/21/2025 [facility] Pulmonary Medicine [place] [address] [place] [address] 02/19/2025 [facility] Chronic obstructive pulmonary disease with (acute) exacerbation J44.1 Pulmonary Medicine [place] [address] [place] [address] 05/14/2025 [facility] Paraseptal emphysema J43.8 Assessments Encounter Date Diagnosis (ICD Code) Assessment Notes Treatment Notes Treatment Clinical Notes Section Notes 08/01/2024 Chronic respiratory failure with hypoxia (ICD-10 - J96.11) Hvmk-de-mviy encounter performed with the patient to document [...] respiratory failure with hypoxia (ICD-10 - J96.11) Hacf-wm-qcss encounter performed with the patient to document [...] J44.1) 05/14/2025 Paraseptal emphysema (ICD-10 - J43.8) 01/30/2025 Paraseptal emphysema (ICD-10 - J43.8) It [...] return in 6 months for longitudinal evaluation. Pwlm-yv-hmuf encounter performed with the patient to document [...] to manage diabetes in this situation. 01/30/2025 FDC (current) use of inhaled steroids (ICD-10 - [...] loss indicated: Decrease calories, increase activity. 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
--- OUTSIDE RECORDS SUMMARY | 2025-05-29 16:25 | XMS_ITS | Encounter Summary ---
Author Organization [facility] Address [address] [place] [address] Care Team Providers Care Straight Ruling Machine Operator Name Role Phone Brea jJ MD Primary Care Provider [phone] Reason for Visit * Reason Comments Med Refill Encounter Details Date Type Department Care Team (Late st Contact Info) Description 06/09/2023 Refill [facility] [address] [place] [address] Marlene Soto MD [address] [facility] [address] [facility] [place] [address] Edema, unspecified type; Benign essential HTN; Coronary-myocardial [...] extremities documented in this encounter Care Teams Straight Ruling Machine Operator Relationship Specialty Start Date End Date Brea Jj MD [address] [place] [address] PCP - General 12/24/22 documented as of this encounter
--- OUTSIDE RECORDS SUMMARY | 2025-05-29 16:25 | XMS_ITS | Encounter Summary ---
Author Organization [facility] Address [address] [facility] [place] [address] Care Team Providers Care Gem Carver Name Role Phone Brea Jj STRIPER MACHINE Unavailable [phone] Jose M Light MD Primary Care Provider [phone] Brea Jj STRIPER MACHINE Unavailable [phone] Encounter Details Date Type Department Care Team (Late st Contact Info) Description 05/28/2025 Orders Only [facility] [address] [place] [address] Sheldon Mckee MD [address] [place], [place] [address] Social History Tobacco Use Types Packs/Day Years [...] Visit [facility] [address] [place] [address] Brea Jj NP [address] [place] [address] documented as of this encounter Procedures Procedure Name Priority Date/Time Associated Diagnosis Comments CT ABDOMEN PELVIS WO IV CONTRAST Routine 05/28/2025 4:45 PM EDT documented in this encounter Results * CT abdomen pelvis wo IV contrast (05/28/2025 4:45 PM EDT) Anatomical Region Laterality Modality Body, Pelvis, Abdomen Computed T omography Sheldon Mckee MD IMG CT PROCEDURES Final Resul t documented in this encounter Visit Diagnoses Not on filedocumented in this encounter Care Teams Gem Carver Relationship Specialty Start Date End Date Jose M Lihgt MD [address] [place] [address] PCP - General Family Medicine 10/18/23 Brea Jj NP [address] [place] [address] PCP - [facility] 07/31/24 Brea Jj NP [address] [place] [address] Nurse Practitioner Family Medicine 10/18/23 documented as of this encounter
--- OUTSIDE RECORDS SUMMARY | 2025-05-29 16:25 | XMS_ITS ---
Author Organization [facility] Address [address] [place] [address] Care Team Providers Care Supervisor Ride Assembly Name Role Phone Brea Jj PASSENGER ELEVATOR OPERATOR Unavailable [phone] Jose M Light MD Primary Care Provider [phone] Brea Jj PASSENGER ELEVATOR OPERATOR Unavailable [phone] Inpatient Discharge Transitional Care Management (TCM) Status:Identified (Enrolling) Start date:05/29/2025 Enrollment reason:Identified using hospital discharge data Overview Patient discharged from [facility] on 05/29. Please contact for hospital TOCand schedule follow-up appointment within 7-14 days. Case Team Name Relationship Phone Ander Wheat MA(Responsible Staff) [phone] Melissa Harvey LPN [phone] Continued Care and Services Coordination
--- OUTSIDE RECORDS SUMMARY | 2025-05-29 16:25 | XMS_ITS | Encounter Summary ---
Author Organization [facility] Address [address] [facility] [place] [address] Care Team Providers Care Red Mud Thickener Operator Name Role Phone Brea Jj DETECTIVE SUPERVISOR Unavailable [phone] Jose M Light MD Primary Care Provider [phone] Brea Jj DETECTIVE SUPERVISOR Unavailable [phone] Encounter Details Date Type Department Care Team (Late st Contact Info) Description 05/28/2025 External Result Encounter [facility] External Department Unsolicited Brea Jj, TOBIAS [address] [place] [address] Social History Tobacco Use Types Packs/Day Years [...] [facility] [address] [place] [address] Brea Jj NP [address] [place] [address] Pending Results Name Type Priority Associated Diagnoses Date /Time Urine culture Microbiology Routine 10:02 AM EDT documented as of this encounter Procedures Procedure Name Priority Date/Time Associated Diagnosis Comments CULTURE, URINE, ROUTINE Routine 05/28/2025 10:02 AM EDT documented in this encounter Visit Diagnoses Not on filedocumented in this encounter Care Teams Red Mud Thickener Operator Relationship Specialty Start Date End Date Jose M Light MD [address] [place] [address] PCP - General Family Medicine 10/18/23 Brea Jj NP [address] [place] [address] PCP - [facility] 07/31/24 Brea Jj NP [address] [place] [address] Nurse Practitioner Family Medicine 10/18/23 documented as of this encounter
--- OUTSIDE RECORDS SUMMARY | 2025-05-29 16:25 | XMS_ITS | Encounter Summary ---
Author Organization [facility] Address [address] [facility] [place] [address] Care Team Providers Care Varnish Blender Name Role Phone Brea Jj LINEN ROOM WORKER Unavailable [phone] Jose M Light MD Primary Care Provider [phone] Brea Jj LINEN ROOM WORKER Unavailable [phone] Encounter Details Date Type Department Care Team (Late st Contact Info) Description 05/28/2025 Bamboo flowsheet [facility] [address] [place] [address] Brea Jj NP [address] [place] [address] Social History Tobacco Use Types Packs/Day Years [...] [facility] [address] [place] [address] Brea Jj NP [address] [place] [address] documented as of this encounter Visit Diagnoses Not on filedocumented in this encounter Care Teams Varnish Blender Relationship Specialty Start Date End Date Jose M Light MD [address] [place] [address] PCP - General Family Medicine 10/18/23 Brea Jj NP [address] [place] [address] PCP - [facility] 07/31/24 Brea Jj NP [address] [place] [address] Nurse Practitioner Family Medicine 10/18/23 documented as of this encounter
--- OUTSIDE RECORDS SUMMARY | 2025-05-29 16:25 | XMS_ITS | Encounter Summary ---
Author Organization [facility] Address [address] [facility] [place] [address] Care Team Providers Care Cookie Padder Name Role Phone Brea Jj INVOICE MACHINE OPERATOR Unavailable [phone] Jose M Light MD Primary Care Provider [phone] Brea Jj INVOICE MACHINE OPERATOR Unavailable [phone] Tram Crooks AUTOMOBILE TAILLIGHT ASSEMBLER Unavailable Diana Stephen AUTOMOBILE TAILLIGHT ASSEMBLER Unavailable [phone] Encounter Details Date Type Department Care Team (Late st Contact Info) Description 04/16/2024 Clinisync Result Encounter [facility] External Department Unsolicited Brea Jj NP [address] [facility] [place] [address] [place] [address] Social History Tobacco Use Types [...] Visit [facility] [address] [place] [address] Brea Jj NP [address] [place] [address] documented as of this encounter Procedures Procedure Name Priority Date/Time Associated Diagnosis Comments MM TOMOSYNTHESIS SCREENING BI 04/16/2024 3:04 PM EDT documented in this encounter Results * MM TOMOSYNTHESIS SCREENING BI (04/16/2024 3:04 PM EDT) Anatomical Region Laterality Modality Other 04/16/2024 3:04 PM EDT Narrative 04/16/2024 3:05 [place] [address] Mammography Report Signed Patient: SIS MOORE MR#: [id number] : 1965 Acct:[id number] Age/Sex: 58 / F ADM Date: 04/16/24 Loc: MAMMO Attending Dr: Brea Jj NP Ordering Physician: Brea Jj NP Results: Date of Service: 04/16/24 Follow Up: Procedure(s): MM tomosynthesis screening BI Accession Number(s): [id number] cc: Brea Jj NP Patient Name: SIS MOORE MR#: [id number] : 1965 Exam Date: 04/16/2024 Ordering Doctor: ENRIQUE Jj EXTRUSION DIE TEMPLATE MAKER RADIOLOGY REPORT PROCEDURE: MM TOMOSYNTHESIS SCREENING BI [...] Treatments None Family Cancers None LOCATION: [facility] BREAST COMPOSITION: The breasts are almost entirely [...] Signed By: 04/16/24 1505 DD/ 1504 TD/TT: Central Office Mechanic: Procedure Note Radiology, Radiologist, MD - 04/16/2024 [place] [address] Mammography Report Signed Patient: SIS MOORE JMR#: [id number] : 1965Acct:[id number] Age/Sex: 58 / FADM Date: 04/16/24 Loc: MAMMO Attending Dr: Brea Jj NP Ordering Physician: Brea Jj NPResults: Date of Service: 04/16/24Follow Up: Procedure(s): MM tomosynthesis screening BI Accession Number(s): [id number] cc: Brea Jj NP Patient Name: SIS MOORE MR#: [id number] : 1965 Exam Date: 04/16/2024 Ordering Doctor: ENRIQUE Jj CNP RADIOLOGY REPORT PROCEDURE: MM TOMOSYNTHESIS SCREENING BI COMPARISON: MM TOMOSYNTHESIS SCREENING BI, 04/14/2023. MG MAMM [id number] EMY CAD, 04/30/2022. MG MAMM SCREEN 3D EMY CAD, 04/29/2021. MG MAMM BILSCRN W CAD DIG, 09/05/2007. INDICATIONS: Screening Calculator Name NCI Breast Cancer Risk Assessment Tool 5 Year Breast Cancer Risk 0.90% Lifetime Breast Cancer Risk 5.00% Personal Breast Cancer No Personal Ovarian Cancer No Treatments None Family Cancers None LOCATION: [facility] BREAST COMPOSITION: The breasts are almost entirely [...] M.D. Signed By:04/16/24 1505 DD/ 1504 TD/TT: Central Office Mechanic: Brea Jj NP [facility] Final Result documented in this encounter Visit Diagnoses Not on filedocumented in this encounter Care Teams Cookie Padder Relationship Specialty Start Date End Date Jose M Light MD [address] [place] [address] PCP - General Family Medicine 10/18/23 Brea Jj NP [address] [place] [address] PCP - [facility] 07/31/24 Brea Jj NP [address] [place] [address] Nurse Practitioner Family Medicine 10/18/23 [place] [address] [place] [address] Molded Goods Embossing Press Operator Canvas Marker 11/14/24 11/15/24 Diana Stephen, SKY [address] [place] [address] Molded Goods Embossing Press Operator Family Medicine 11/15/24 11/26/24 documented as of this encounter
--- OUTSIDE RECORDS SUMMARY | 2025-05-29 16:25 | XMS_ITS | Encounter Summary ---
Author Organization [facility] Address [address] [facility] [place] [address] Care Team Providers Care Centrifugal Supervisor Name Role Phone Brea Jj NP Unavailable [phone] Jose M Light MD Primary Care Provider [phone] Brea Jj WATERPROOFER Unavailable [phone] Tram Crooks SAMPLE ROOM SUPERVISOR Unavailable Diana Stephen SAMPLE ROOM SUPERVISOR Unavailable [phone] Encounter Details Date Type Department Care Team (Late st Contact Info) Description 04/02/2024 Orders Only [facility] [address] [place] [address] Brea Jj NP [address] [place] [address] Social History Tobacco Use Types Packs/Day Years [...] Visit [facility] [address] [place] [address] Brea Jj NP [address] [place] [address] documented as of this encounter Procedures Procedure Name Priority Date/Time Associated Diagnosis Comments ELECTROCARDIOGRAM REPORT Routine 024 8:56 AM EDT documented in this encounter Results * Electrocardiogram Report (03/31/2024 8:56 AM EDT) us Brea Jj NP IN CLINIC/BEDSIDE ORDERABLES Fi nal Result documented in this encounter Visit Diagnoses Not on filedocumented in this encounter Care Teams Centrifugal Supervisor Relationship Specialty Start Date End Date Jose M Light MD [address] [place] [address] PCP - General Family Medicine 10/18/23 Brea Jj NP [address] [place] [address] PCP - [facility] 07/31/24 Brea Jj NP [address] [place] [address] Nurse Practitioner Family Medicine 10/18/23 Tram Crooks, SAMPLE ROOM SUPERVISOR [address] [place] [address] Music Supervisor Assistant Women'S Soccer Coach 11/14/24 11/15/24 Diana Stephen, SKY [address] [place], [place] [address] Music Supervisor Family Medicine 11/15/24 11/26/24 documented as of this encounter
--- OUTSIDE RECORDS SUMMARY | 2025-05-29 16:25 | XMS_ITS | Encounter Summary ---
Author Organization [facility] Address [address] [facility] [place] [address] Care Team Providers Care College Recruiter Name Role Phone Brea Jj ANESTHESIOLOGIST PHYSICIAN Unavailable [phone] Jose M Light MD Primary Care Provider [phone] Brea Jj ANESTHESIOLOGIST PHYSICIAN Unavailable [phone] Encounter Details Date Type Department Care Team (Late st Contact Info) Description 05/29/2025 Telephone [facility] [address] [place] [address] Brea Jj NP [address] [place] [address] Social History Tobacco Use Types [...] AM EDT documented as of this encounter Miscellaneous Notes * Telephone Encounter - AVI LONG - 05/29/2025 10:20 AM EDT Text Co Supervisor Grounds And Landscape Yeah, this is Mirtha. Um, if you could call me back, it is kind of important. I would appreciate it. Thank you. Bye. documented in this encounter Plan of Treatment Upcoming Encounters Date Type Department Care Team (Late st Contact Info) Description 08/28/2025 9:00 AM EDT Office Visit [facility] [address] [place] [address] Brea Jj NP [address] [place] [phone] documented as of this encounter Visit Diagnoses Not on filedocumented in this encounter Care Teams College Recruiter Relationship Specialty Start Date End Date Jose M Light MD [address] [place] [address] PCP - General Family Medicine 10/18/23 Brea Jj NP [address] [place] [phone] PCP - [facility] 07/31/24 Brea Jj NP [address] [place] [address] Nurse Practitioner Family Medicine 10/18/23 documented as of this encounter
--- OUTSIDE RECORDS SUMMARY | 2025-05-29 16:25 | XMS_ITS | Encounter Summary ---
Author Organization [facility] Address [address] [place] [address] Care Team Providers Care Auto Cleaner Name Role Phone Brea Jj MD Primary Care Provider [phone] Reason for Visit * Reason Comments Med Refill Encounter Details Date Type Department Care Team (Late st Contact Info) Description 09/08/2023 Refill [facility] [address] [place] [phone] Toshia Weiner, TELESCOPE REPAIRER [address] [place] [phone] Edema, unspecified type; Benign essential HTN; Coronary-myocardial [...] extremities documented in this encounter Care Teams Auto Cleaner Relationship Specialty Start Date End Date Brea Jj MD [address] [place] [address] PCP - General 12/24/22 documented as of this encounter
--- OUTSIDE RECORDS SUMMARY | 2025-05-29 16:25 | XMS_ITS | Clinical Summary ---
Author Organization [facility] Address [address] [facility] [place] [address] Care Team Providers Care High School Biology Teacher Name Role Phone Brea Jj CLERICAL CAR CHECKER Unavailable [phone] Jose M Light MD Primary Care Provider [phone] Brea Jj CLERICAL CAR CHECKER Unavailable [phone] Allergies No known active allergies Medications [...] BY MOUTH EVERY 12 HOURS 023 Active fluocinonide (Lidex) 0.05 % creamIndications: Other atopic dermatitis Apply thin layer (1 g) to lower legs, up to twice a day when flared, do not use one the face, groin, or underarms, 30 day supply 80 g 11 025 Active predniSONE (Deltasone) 20 MG tablet TAKE [...] BY MOUTH AT BEDTIME 30 tablet 2 2024 Active Multiple Vitamin (Multivitamin) tablet Take [...] mg) by mouth Daily 30 tablet 5 2024 Active atorvastatin (Lipitor) 40 MG tabletIndications :Mixed hyperlipidemia Take 1 tablet (40 mg) by mouth at bedtime 30 tablet 5 2024 Active busPIRone (Buspar) 15 MG tabletIndications :Anxiety and depression Take 1 tablet (15 mg) by mouth in the morning and 1 tablet (15 mg) before bedtime. 60 tablet 5 08/28/ 2025 Active DULoxetine (Cymbalta) [address] capsuleIndication [...] mouth at bedtime 60 tablet 2024 Active ondansetron ODT (Zofran-ODT) 4 MG disintegrating tabletIndications :Vomiting and diarrhea Take 1 tablet (4 mg) by mouth every 8 (eight) hours if needed for nausea or vomiting for up to 10 days 30 tablet 2024 Active ondansetron ODT (Zofran-ODT) 4 MG disintegrating tablet Take 4 mg by mouth every 8 (eight) hours if needed for nausea or vomiting 2024 Discontinued(R eorder) Aspirin Low Dose 81 MG EC tablet [...] mouth Daily 30 tablet 5 025 2024 Discontinued(R eorder) pramipexole (Mirapex) 0.5 MG tabletIndications :Restless leg syndrome Take 1 tablet (0.5 mg) by mouth at bedtime 30 tablet 5 025 2024 Discontinued(R eorder) lamoTRIgine (LaMICtal) 25 MG tabletIndications [...] Date Diagnosed Date Vomiting and diarrhea 05/28/2025 Assessment & Plan (05/28/2025 12:50 PM EDT): Does have low blood pressure, which is likely related to dehydration as well as starting her b aleks recently by cardiology We will order some labs and see where things stand as well Encounter for wellness examination in adult 01/30 [...] I have referred her to GI in [facility] trial Xifaxin for for IBS-D Has failed: immmodium, pepto Sxs could also be gallbladder related as well #3 samples: lot: [id number] exp 04/26 Assessment & Plan (12/03/2024 9:42 [...] Anxiety and depression 10/12/2023 Overview (12/03/2024): 12/03/24: AGYLE 7=4, PHQ 9=5 Assessment & Plan (05/28/2025 [...] dose changes, would like counseling Refer to [facility] Assessment & Plan (12/03/2024 9:21 AM [...] as of last week, no living in [place], much less stress Essential (primary) hypertension 10/12/2023 [...] of the risks of continued smoking: stroke, [place], all forms of cancer, lung disease, and [...] Encounters Date Type Department Care Team Description 05/29/2025 Telephone [facility] [address] [place] [address] Brea Jj NP 05/29/2025 Abstract [facility] [address] [place] [address] Brea Jj NP 05/28/2025 9:00 AM EDT Office Visit [facility] [address] [place] [address] Brea Jj NP Vomiting and diarrhea (Primary Dx); Restless leg syndrome; ROLANDO (obstructive sleep apnea); Essential (primary) hypertension ; Gastroesophageal reflux disease without esophagitis; Edema of both lower extremities; Type 2 diabetes mellitus without complication, without long-term current use of insulin ([facility]); Class 2 severe obesity due to excess calories with serious comorbidity and body mass index (BMI) of 37.0 to 37.9 in adult ([facility]); Mixed hyperlipidemia ; Anxiety and depression ; Primary hypertension 05/28/2025 External Result Encounter [facility] External Department Unsolicited Brea Jj NP 05/28/2025 Orders Only [facility] [address] [place] [address] Sheldon Mckee MD 05/28/2025 Clinisync Result Encounter [facility]OMS External Department Unsolicited Brea Jj NP 05/28/2025 Bamboo flowsheet [facility] [address] [place] [address] Brea Jj NP 05/10/2025 Refill [facility] [address] [place] [address] Brea Jj NP Anxiety and depression ; Restless leg syndrome; Other insomnia 04/30/2025 Clinisync Result Encounter [facility] External Department Unsolicited Provider, Generic External Data 04/17/2025 Clinisync Result Encounter [facility]OMS External Department Unsolicited Brea Jj NP 04/04/2025 Refill [facility] [address] [place] [phone] Brea Jj NP Vitamin deficiency (Primary Dx) 03/06/2025 Refill [facility] [address] [place] [phone] Brea Jj NP Osteopenia after menopause (Primary [...] you are drinking? Patient does not drink 3 Q3: How often do you have si [...] EDT Office Visit [facility] [address] [place] [address] Brea Jj NP [address] [place] [address] Health Maintenance Due Date Last Done Comments CT Colonography 1965 FIT-DNA 1965 FIT 1965 FOBT 1965 Sigmoidoscopy 1965 Pap Smear 1985 Diabetes: Urine Protein Screening 03/15/2025 024, 04/14/2023 Influenza Vaccine (#1) 2025 4, 07/16/2024, 08/12/2023, Additional history exists Diabetes: Hemoglobin A1C 11/28/2025 025, 02/25/2025, 10/29/2024, Additional history exists Mammogram 04/17/2026 04/17/2025, 03/31, 04/14/2023 Diabetes: Retinopathy Screening 01/01/2027 , 01/29/2023 Cervical Cancer Screening 06/23/2028 HPV/Cotest 06/23/2028 06/23/2023 Colonoscopy 03/31/2030 03/31/2020 Colorectal Cancer Screening 03/31/2030 Procedures Procedure Name Priority Date/Time Associated Diagnosis Comments CT ABDOMEN PELVIS WO IV CONTRAST Routine 05/28/2025 4:45 PM EDT ALL THYROID STIM HORMONE Routine 05/28/2025 10:09 AM EDT ALL LIPID PROFILE (FASTING) Routine 05/28/2025 10:09 AM EDT [facility]CF CMP (CMP) (FOR REMOTE [facility] USE) Routine 05/28/2025 10:09 AM EDT ALL CBC WITH AUTO DIFF Routine 05/28/2025 10:09 AM EDT CULTURE, URINE, ROUTINE Routine 05/28/2025 10:02 AM EDT URINE CULTURE - [facility] Routine 05/28/2025 10:01 AM EDT TBH MICROALB [...] Recently Relevant to Health Maintenance Results * CT abdomen pelvis wo IV contrast (05/28/2025 4:45 PM EDT) Anatomical Region Laterality Modality Body, Pelvis, Abdomen Computed T omography Sheldon Mckee MD IMG CT PROCEDURES Final Resul t * (ABNORMAL) CCF CMP (CMP) (FOR REMOTE [facility] USE) (05/28/2025 10:09 AM EDT) SODIUM 135(L) [...] 0.55 - 1.02 mg/dL TBH TBH EGFR-AF ARMENIAN 14(L) >=60 mL/min/1. 73m 2 TBH TBH EGFR-NON AF ARMENIAN 12(L) >=60 mL/min/1. 73m 2 TBH BUN [...] us Brea Jj NP CLINISYNC Final Result [facility] * ALL THYROID STIM HORMONE (05/28/2025 10:09 AM EDT) THYROID STIMULATING HORMONE 0.482 0.358 - 3.740 uIU/mL TB 05/28/2025 10:0 9 AM EDT 05/28/2025 10:10 AM EDT Narrative CLINISYNC - 05/28/2025 11:04 AM EDT Brea Jj NP CLINISYNC Final Result Performing Organization Address [facility] [[email or web address]] Co de Phone Number [facility] * (ABNORMAL) ALL LIPID PROFILE (FASTING) (05/28/2025 [...] EDT Brea Jj NP CLINISYNC Final Result [facility]INIS[facility]NC [facility] * (ABNORMAL) ALL CBC WITH AUTO DIFF (05/28/2025 10:09 AM EDT) TBH WBC 11.5(H) 4.0 - 11.0 10 3/uL [...] Narrative CLINISYNC - 05/28/2025 10:16 AM EDT us Brea Jj CLERICAL CAR CHECKER CLINISYNC Final Result Performing Organization Address [facility] [[email or web address]] Co de Phone Number CLINISYNC TB * (ABNORMAL) TBH UA (CLEAN/CATCH) MICROSCOPIC [...] 05/28/2025 10:17 AM EDT us Brea Jj CLERICAL CAR CHECKER CLINISYNC Final Result Performing Organization Address [facility] de Phone Number CLINISYMT TB * TBH MICROALB CREAT RATIO RANDOM (05/28/2025 10:01 AM EDT) MICROALBUMIN URINE RANDOM <1.3 <=30.0 mg/dL TB CREATININE URINE RANDOM 45.39 20.00 - 300.00 mg/dL TBH 05/28/2025 10:0 1 AM EDT 05/28/2025 10:10 AM EDT Narrative CLINISYNC - 05/28/2025 10:26 AM EDT us Brea Jj CLERICAL CAR CHECKER CLINISYNC Final Result Performing Organization Address [facility] [[email or web address]] Co de Phone Number CLINISYNC TB * (ABNORMAL) POCT glycosylated hemoglobin (Hb A1C) docked device (05/28/2025 9:15 AM EDT) Hemoglobin A1C 6.3 Blood Venous blood specimen / Unknown 05/28/2025 9:15 AM EDT Brea Jj NP POINT OF CARE TEST ENTER/EDIT O RDERABLES Final Result * CA ECHO DOPPLER COMPLETE (04/30/2025 2:12 PM EDT) Anatomical Region Laterality Modality Other 04/30/2025 2:12 PM EDT Narrative 04/30/2025 2:13 [place] [address] Cardiology Report Signed Patient: SIS MOORE MR#: [id number] : 1965 Acct:[id number] Age/Sex: 59 / F ADM Date: 04/30/25 Loc: CARD Attending Dr: Marlene Gaviria M.D. Ordering Physician: Marlene Gaviria M.D. Date of Service: 04/30/25 Procedure(s): CA echo doppler complete Accession Number(s): [id number] cc: Brea Jj NP; Marlene Gaviria M.D. Patient Name: SIS MOORE MR#: [id number] : 1965 Exam Date: 04/30/2025 Ordering Doctor: [...] Signed By: 04/30/25 1413 DD/ 141 TD/TT: It Help Desk Analyst: Procedure Note Radiology, Radiologist, MD - 04/30/2025 [place] [address] Cardiology Report Signed Patient: SIS MOORE JMR#: [id number] : 1965Acct:[id number] Age/Sex: 59 / FADM Date: 04/30/25 Loc: CARD Attending Dr: Marlene Gaviria M.D. Ordering Physician: Marlene Gaviria M.D. Date of Service: 04/30/25 Procedure(s): CA echo doppler complete Accession Number(s): [id number] cc: Brea Jj CLERICAL CAR CHECKER; Marlene Gaviria M.D. Patient Name: SIS MOORE MR#: [id number] : 1965 Exam Date: 04/30/2025 Ordering Doctor: [...] M.D. Signed By:04/30/25 1413 DD/ 141 TD/TT: It Help Desk Analyst: us Generic External Data Provider CLINISYNC IMAGING Final Result * MM TOMOSYNTHESIS SCREENING BI (04/17/2025 4:38 PM EDT) Anatomical Region Laterality Modality Other 04/17/2025 4:38 PM EDT Narrative 04/17/2025 4:39 [place] [address] Mammography Report Signed Patient: SIS MOORE MR#: [id number] : 1965 Acct:[id number] Age/Sex: 59 / F ADM Date: 04/17/25 Loc: MAMMO Attending Dr: Brea Jj NP Ordering Physician: Brea Jj NP Results: Date of Service: 04/17/25 Follow Up: Procedure(s): MM tomosynthesis screening BI Accession Number(s): [id number] cc: Brea Jj NP Patient Name: SIS MOORE MR#: [id number] : 1965 Exam Date: 04/17/2025 Ordering Doctor: [...] Treatments None Family Cancers None LOCATION: [facility] BREAST COMPOSITION: The breasts are [...] Signed By: 04/17/25 1639 DD/ 1638 TD/TT: It Help Desk Analyst: Procedure Note Radiology, Radiologist, MD - 04/17/2025 [place] [address] Mammography Report Signed Patient: SIS MOORE R#: [id number] : 1965Acct:[id number] Age/Sex: 59 / FADM Date: 04/17/25 Loc: MAMMO Attending Dr: Brea Jj NP Ordering Physician: Brea Jj NPResults: Date of Service: 04/17/25Follow Up: Procedure(s): MM tomosynthesis screening BI Accession Number(s): [id number] cc: Brea Jj NP Patient Name: SIS MOORE MR#: [id number] : 1965 Exam Date: 04/17/2025 Ordering Doctor: ENRIQUE JJ AUTO REBUILDER RADIOLOGY REPORT PROCEDURE: MM TOMOSYNTHESIS SCREENING BI [...] Treatments None Family Cancers None LOCATION: [facility] BREAST COMPOSITION: The breasts are [...] M.D. Signed By:04/17/25 1639 DD/ 1638 TD/TT: It Help Desk Analyst: us Brea Jj NP CLINISYNC IMAGING Final [...] components cannot be reported in this patient. DESIGN PROJECT MANAGER [facility] Comment: COLE BRAVO(ASCP) CT screening location: [place] [address]. (ALWAYS MESSAGE) [facility] Comment: EXPLANATORY NOTE: The [...] Not Detected Not Detected [facility] Comment: Methodology: Dump Truck Driver Off Highway-Mediated Amplification This assay detects E6/E7 viral messenger RNA (mRNA) from 14 high-risk HPV types (16,18,31,33,35,39,45,51,52,56,58,59,66,68). Cervical sources are required for HPV testing. If a vaginal source from a patient who has had a total hysterectomy with removal of cervix was submitted, please contact the testing laboratory for alternative testing options. For additional information, please refer to http://education.HRsoft/faq/MIN958e4 (This link if provided for information/ educational purposes only.) Other 06/23/2023 10:2 8 AM EDT 06/24/2023 4:13 AM EDT Narrative Resulting Agency Comment Performing Organization Information Site ID: [id number] Name: [facility] Address: [address] [place] [address], [address] [place] [phone] Director: Zaki Prasad MD Yessica Kline NP LAB BLOOD ORDERABLES Nataliya franchesca Result [facility] from Last 3 Months or Most Recently Relevant to Health [place] [address] [employer] Care Teams High School Biology Teacher Relationship Specialty Start Date End Date Jose M Light MD [address] [place] [address] PCP - General Family Medicine 10/18/23 Brea Jj NP [address] [place] [address] [facility] 07/31/24 Brea Jj NP [address] [place] [address] Nurse Practitioner Family Medicine 10/18/23
--- OUTSIDE RECORDS SUMMARY | 2025-05-29 16:25 | XMS_ITS | Encounter Summary ---
Author Organization [facility] Address [address] [facility] [place] [address] Care Team Providers Care Theatrical Performer Name Role Phone Brea Jj NP Unavailable [phone] Jose M Light MD Primary Care Provider [phone] Brea Jj NP Unavailable [phone] Encounter Details Date Type Department Care Team (Late st Contact Info) Description 05/28/2025 Clinisync Result Encounter [facility] External Department Unsolicited Brea Jj NP [address] [place] [address] Social History Tobacco Use Types Packs/Day Years [...] [facility] [address] [place] [address] Brea Jj, TOBIAS [address] [place] [address] Pending Results Name Type Priority Associated Diagnoses Date /Time URINE CULTURE - [facility] Lab Routine 05/01 10:01 AM EDT documented as of this encounter Procedures Procedure Name Priority Date/Time Associated Diagnosis Comments CCF CMP (CMP) (FOR REMOTE [facility] USE) Routine 05/28/2025 10:09 AM EDT ALL THYROID STIM HORMONE Routine 05/28/2025 10:09 AM EDT ALL LIPID PROFILE (FASTING) Routine 05/28/2025 10:09 AM EDT ALL CBC WITH AUTO DIFF Routine 05/28/2025 10:09 AM EDT URINE CULTURE - [facility] Routine 05/28/2025 10:01 AM EDT TBH UA [...] Final Result CLINISYNC TB * (ABNORMAL) ALL LIPID PROFILE (FASTING) (05/28/2025 [...] NP CLINISYNC Final Result Performing Organization Address [facility]/ZIP Co de Phone Number CLINISYNC TB * (ABNORMAL) CCF CMP (CMP) (FOR REMOTE [facility] USE) (05/28/2025 10:09 AM EDT) SODIUM 135(L) [...] 0.55 - 1.02 mg/dL TBH TBH EGFR-AF TURKMEN 14(L) >=60 mL/min/1. 73m 2 TBH TBH EGFR-NON AF TURKMEN 12(L) >=60 mL/min/1. 73m 2 TBH BUN [...] us Brea Jj NP [facility]NC Final [facility] * (ABNORMAL) ALL CBC WITH AUTO DIFF [...] 05/28/2025 10:16 AM EDT us Brea Jj NP CLINISYNC Final Result Performing Organization Address City/[facility]/ZIP Co de Phone Number [facility] * TBH MICROALB CREAT RATIO RANDOM (05/28/2025 10:01 AM EDT) MICROALBUMIN URINE RANDOM <1.3 <=30.0 mg/dL TBH CREATININE URINE RANDOM 45.39 20.00 - 300.00 mg/dL TBH 05/28/2025 10:0 1 AM EDT 05/28/2025 10:10 AM EDT Narrative CLINISYNC - 05/28/2025 10:26 AM EDT us Brea Jj ACCOUNTANT HELPER CLINISYNC Final Result CLINISYNC TB * (ABNORMAL) TBH UA (CLEAN/CATCH) [...] us Brea Jj NP CLINISYNC Final Result Performing Organization Address City/State/[facility] Co de Phone Number [facility] documented in this encounter Visit Diagnoses Not on filedocumented in this encounter Care Teams Theatrical Performer Relationship Specialty Start Date End Date Jose M Light MD [address] [place] [address] PCP - General Family Medicine 10/18/23 Brea Jj NP [address] [place] [address] PCP - [facility] 07/31/24 Brea Jj NP [address] [place] [address] Nurse Practitioner Family Medicine 10/18/23 documented as of this encounter
--- OUTSIDE RECORDS SUMMARY | 2025-05-29 16:25 | XMS_ITS | Clinical Summary ---
Author Organization [facility] Address [address] [place] [address] Care Team Providers Care Mobility Architect Name Role Phone Brea Jj MD Primary Care Provider [phone] Allergies No known active allergies Medications albuterol [...] Description 03/28/2025 9:15 AM EDT Office Visit [address] [address] Marlene Soto MD Coronary-myocardial bridge (Primary Dx); Dyspnea on exertion; Other pulmonary embolism without acute cor pulmonale, unspecified chronicity (CMS/HCC) 03/27/2025 Orders Only [address] [address] Provider, MD Ji from Last 3 Months [...] patient's age to complete this topic Insurance [facility] MEDICAID Care Teams Mobility Architect Relationship Specialty Start Date End Date Brea Jj MD [address] [place] [address] PCP - General 12/24/22
--- OUTSIDE RECORDS SUMMARY | 2025-05-29 16:25 | XMS_ITS | Encounter Summary ---
Author Organization [facility] Address [address] [place] [address] Care Team Providers Care Airplane Flight Attendant Supervisor Name Role Phone Brea Jj MD Primary Care Provider Reason for Visit * Reason Comments Med Refill Encounter Details Date Type Department Care Team ([facility] st Contact Info) Description 10/12/2023 Refill [facility] [address] [place] [phone] Marlene Soto MD [address] [facility] [address] [facility] [place] [phone] Benign essential HTN; Coronary-myocardial bridge; Edema of [...] extremities documented in this encounter Care Teams Airplane Flight Attendant Supervisor Relationship Specialty Start Date End Date Brea Jj MD [address] [facility] [place] [place] [address] PCP - General 12/24/22 documented as of this encounter
--- OUTSIDE RECORDS SUMMARY | 2025-05-29 16:25 | XMS_ITS | Encounter Summary ---
Author Organization [facility] Address [address] [facility] [place] [address] Care Team Providers Care Scientist Engineer Name Role Phone Brea Jj CRISIS SPECIALIST Unavailable [phone] Jose M Light MD Primary Care Provider [phone] Brea Jj CRISIS SPECIALIST Unavailable [phone] Tram Crooks SERVICE RESTORER EMERGENCY Unavailable Diana Stephen SERVICE RESTORER EMERGENCY Unavailable Encounter Details Date Type Department Care Team (Late st Contact Info) Description 01/17/2024 Orders Only [facility] [address] [place] [address] Brea Jj NP [address] [place] [address] Social History Tobacco Use Types Packs/Day Years [...] Visit [facility] [address] [place] [address] Brea Jj NP [address] [place] [place] [address] documented as of this encounter Procedures Procedure Name Priority Date/Time Associated Diagnosis Comments SCANNED LABS Routine 01/17/2024 10:42 AM EDT documented in this encounter Results * SCANNED LABS (01/17/2024 10:42 AM EDT) us Brea Jj CRISIS SPECIALIST LAB CHG PERFORMABLES Final Resu lt documented in this encounter Visit Diagnoses Not on filedocumented in this encounter Care Teams Scientist Engineer Relationship Specialty Start Date End Date Jose M Light MD [address] [place] [address] PCP - General Family Medicine 10/18/23 Brea Jj NP [address] [place] [address] PCP - [facility] 07/31/24 Brea Jj NP [address] [place] [place] [address] Nurse Practitioner Family Medicine 10/18/23 Tram Crooks, SERVICE RESTORER EMERGENCY [address] [place] [address] Railroad Repairer Casing Man 11/14/24 11/15/24 Diana Stephen, SERVICE RESTORER EMERGENCY [address] [place] [address] Railroad Repairer Family Medicine 11/15/24 11/26/24 documented as of this encounter
--- OUTSIDE RECORDS SUMMARY | 2025-05-29 16:25 | XMS_ITS | Encounter Summary ---
Author Organization [facility] Address [address] [place] [address] Care Team Providers Care Irrigation Service Technician Name Role Phone Brea Jj MD Primary Care Provider [phone] Reason for Visit * Reason Comments Med Refill Encounter Details Date Type Department Care Team ([facility] st Contact Info) Description 12/08/2023 Refill [facility] [address] [place] [phone] Marlene Soto MD [address] [facility] [address] [facility] [place] [phone] Edema, unspecified type Social History Tobacco Use [...] type documented in this encounter Care Teams Irrigation Service Technician Relationship Specialty Start Date End Date Brea Jj MD [address] [place] [address] PCP - General 12/24/22 documented as of this encounter
--- OUTSIDE RECORDS SUMMARY | 2025-05-29 16:25 | XMS_ITS | Encounter Summary ---
Author Organization [facility] Address [address] [facility] [place] [address] Care Team Providers Care Development Mechanic Name Role Phone Brea Jj DATA ANALYTICS CHIEF SCIENTIST Unavailable [phone] Jose M Light MD Primary Care Provider [phone] Brea Jj DATA ANALYTICS CHIEF SCIENTIST Unavailable [phone] Tram Crooks VP ANALYTICS Unavailable Dinaa Stephen VP ANALYTICS Unavailable [phone] Encounter Details Date Type Department Care [...] [facility] [address] [place] [address] Brea Jj, TOBIAS [address] [place] [address] documented as of this encounter Procedures Procedure Name Priority Date/Time Associated Diagnosis Comments CT LUNG SCREENING LOW DOSE 05/29/2024 4:02 PM EDT documented in this encounter Results * CT LUNG SCREENING LOW DOSE (05/29/2024 4:02 PM EDT) Anatomical Region Laterality Modality Other 05/29/2024 4:02 PM EDT Narrative 05/29/2024 4:04 [place] [address] CT Scan Report Signed Patient: SIS MOORE MR#: [id number] : 1965 Acct:[id number] Age/Sex: 58 / F ADM Date: 05/29/24 Loc: CT Attending Dr: Corrina Gaines D.O. Ordering Physician: Corrina Gaines D.O. Date of Service: 05/29/24 Procedure(s): CT lung screening low-dose Accession Number(s): [id number] cc: Brea Jj NP [address] [id number] Patient Name: SIS MOORE MRN: [id number] date: 1965 Sex: F Assigned Patient Location: CT Current Patient Location: CT Accession/Order Number: [id number] Exam Date: 05/29/2024 09:29 Report Date: 05/29/2024 [...] Signed By: 05/29/24 1604 DD/ 1602 TD/TT: Hand Slitter: Procedure Note Radiology, Radiologist, MD - 05/29/[address] [address] [address] Scan Report Signed Patient: SIS MOORE R#: [id number] : 1965Acct:[id number] Age/Sex: 58 / FADM Date: 05/29/24 Loc: CT Attending Dr: Corrina Gaines D.O. Ordering Physician: Corrina Gaines D.O. Date of Service: 05/29/24 Procedure(s): CT lung screening low-dose Accession Number(s): [id number] cc: Brea Jj NP The [address] [address] Patient Name: SIS MOORE MRN: [facility]:[id number] date: 1965 Sex: F Assigned Patient Location: CT Current Patient Location: CT Accession/Order Number: [id number] Exam Date: 05/29/2024 09:29 Report Date: 05/29/2024 [...] M.D. Signed By:05/29/24 1604 DD/ 1602 TD/TT: Hand Slitter: us Generic External Data Provider [facility] Final Result documented in this encounter Visit Diagnoses Not on filedocumented in this encounter Care Teams Development Mechanic Relationship Specialty Start Date End Date Jose M Light MD [address] [place] [address] PCP - General Family Medicine 10/18/23 Brea Jj NP [address] [place] [address] [facility] 07/31/24 Brea Jj NP [address] [place] [phone] Nurse Practitioner Family Medicine 10/18/23 Tram Crooks, SKY [address] [place] [address] Canal Equipment Mechanic Refund Clerk 11/14/24 11/15/24 Diana Stephen, SKY [address] [facility] [place] [address] Canal Equipment Mechanic Family Medicine 11/15/24 11/26/24 documented as of this encounter
--- OUTSIDE RECORDS SUMMARY | 2025-05-29 16:25 | XMS_ITS | Encounter Summary ---
Author Organization [facility] Address [address] [facility] [place] [address] Care Team Providers Care Collection Agent Name Role Phone Brea Jj FIELD CREW CHIEF Unavailable [phone] Jose M Light MD Primary Care Provider [phone] Brea Jj FIELD CREW CHIEF Unavailable [phone] Encounter Details Date Type Department Care Team (Late st Contact Info) Description 05/29/2025 Abstract [facility] [address] [place] [phone] Brea Jj FIELD CREW CHIEF [address] [place] [phone] Social History Tobacco Use Types Packs/Day Years [...] Visit [facility] [address] [place] [address] Brea Jj NP [address] [place] [phone] documented as of this encounter Visit Diagnoses Not on filedocumented in this encounter Care Teams Collection Agent Relationship Specialty Start Date End Date Jose M Light MD [address] [place] [phone] PCP - General Family Medicine 10/18/23 Brea Jj NP [address] [place] [phone] PCP - [facility] 07/31/24 Brea Jj NP [address] [place] [phone] Nurse Practitioner Family Medicine 10/18/23 documented as of this encounter
[2025-05-29 16:35] LABS: Hematocrit 39.9 % (36.0-48.0); Hemoglobin 13.4 g/dL (12.0-16.0); Immature Granulocytes Abs Auto 0.02 10^3/uL (0.00-0.03); Immature Granulocytes Pct Auto 0.2 % (0.0-0.5); Lymphocytes Absolute Auto 1.2 10^3/uL (1.2-3.8); Mean Corpuscular HGB Conc 33.6 g/dL (29.9-35.2); Mean Corpuscular Hemoglobin 30.2 pg (26.7-34.0); Mean Corpuscular Volume 89.9 fL (81.0-99.0); Platelet Count 155 10^3/uL (150-450); Red Blood Count 4.44 10^6/uL (4.20-5.40); White Blood Count 9.4 10^3/uL (4.0-11.0)
[2025-05-29 16:55] LABS: Anion Gap 10.1; Blood Urea Nitrogen 37.0 mg/dL (7.0-18.0); Calcium 9.7 mg/dL (8.5-10.1); Carbon Dioxide 29.7 mmol/L (21.0-32.0); Chloride 106 mmol/L (98-107); Estimated GFR (African America 48 (>=60 mL/min/1.73m^2); Estimated GFR (Non-African Ame 40 (>=60 mL/min/1.73m^2); Glucose 148 mg/dL (74-106); Magnesium 1.1 mg/dL (1.8-2.4); Potassium 4.8 mmol/L (3.5-5.1); Sodium 141 mmol/L (136-145)
== END 2025-05-29 16:22 | disposition home or self-care (01) ==
LOC: LAB 16:22
PROVIDERS: PCP Nurse Practitioner; Visit Provider Nurse Practitioner
DX: N17.9 Acute kidney failure, unspecified (principal); E86.0 Dehydration
CPT/HCPCS: 36415; 80048; 83735; 85025

== ENCOUNTER 2025-06-05 10:45 | Outpatient (OUT) | payer OTHER, SELFPAY ==
[2025-06-05 11:28] LABS: Anion Gap 12.0; Blood Urea Nitrogen 16.0 mg/dL (7.0-18.0); Calcium 10.1 mg/dL (8.5-10.1); Carbon Dioxide 32.0 mmol/L (21.0-32.0); Chloride 101 mmol/L (98-107); Estimated GFR (African America >60 (>=60 mL/min/1.73m^2); Estimated GFR (Non-African Ame >60 (>=60 mL/min/1.73m^2); Glucose 127 mg/dL (74-106); Magnesium 1.2 mg/dL (1.8-2.4); Potassium 4.0 mmol/L (3.5-5.1); Sodium 141 mmol/L (136-145)
== END 2025-06-05 10:46 | disposition home or self-care (01) ==
PROVIDERS: PCP Nurse Practitioner; Visit Provider Nurse Practitioner
DX: E83.42 Hypomagnesemia (principal); N17.9 Acute kidney failure, unspecified
CPT/HCPCS: 36415; 80048; 83735

== ENCOUNTER 2025-06-24 09:51 | Outpatient (OUT) | payer OTHER, SELFPAY ==
--- OUTSIDE RECORDS SUMMARY | 2025-06-24 09:53 | XMS_ITS | Encounter Summary ---
Author Organization [facility] Address [address] [place] [address] Care Team Providers Care Instructional Systems Design Consultant Name Role Phone Brea Jj MD Primary Care Provider [phone] Reason for Visit * Reason Comments Med Refill Encounter Details Date Type Department Care Team (Late st Contact Info) Description 06/09/2023 Refill [facility] [address] [place] [phone] Marlene Soto MD [address] [facility] [address] [facility] [place] [phone] Edema, unspecified type; Benign essential HTN; Coronary-myocardial [...] extremities documented in this encounter Care Teams Instructional Systems Design Consultant Relationship Specialty Start Date End Date Brea Jj MD [address] [place] [address] PCP - General 12/24/22 documented as of this encounter
--- OUTSIDE RECORDS SUMMARY | 2025-06-24 09:53 | XMS_ITS | Encounter Summary ---
Author Organization [facility] Address [address] [place] [address] Care Team Providers Care Janitorial Assistant Name Role Phone Brea Jj MD Primary Care Provider [phone] Reason for Visit * Reason Comments Med Refill Encounter Details Date Type Department Care Team (Late st Contact Info) Description 09/08/2023 Refill [facility] [address] [place] [phone] Toshia Weiner, PROJECT DEVELOPMENT LEADER [address] [place] [phone] Edema, unspecified type; Benign essential HTN; Coronary-myocardial [...] extremities documented in this encounter Care Teams Janitorial Assistant Relationship Specialty Start Date End Date Brea Jj MD [address] [place] [address] PCP - General 12/24/22 documented as of this encounter
--- OUTSIDE RECORDS SUMMARY | 2025-06-24 09:53 | XMS_ITS | Encounter Summary ---
Author Organization [facility] Address [address] [place] [address] Care Team Providers Care Public Safety Telecommunicator Name Role Phone Brea Jj MD Primary Care Provider [phone] Reason for Visit * Reason Comments Med Refill Encounter Details Date Type Department Care Team ([facility] st Contact Info) Description 10/12/2023 Refill [facility] [address] [place] [phone] Marlene Soto MD [address] [facility] [address] [facility] [place] [phone] Benign essential HTN; Coronary-myocardial bridge; Edema of [...] extremities documented in this encounter Care Teams Public Safety Telecommunicator Relationship Specialty Start Date End Date Brea Jj MD [address] [facility] [place] [address] PCP - General 12/24/22 documented as of this encounter
--- OUTSIDE RECORDS SUMMARY | 2025-06-24 09:53 | XMS_ITS | Encounter Summary ---
Author Organization [facility] Address [address] [place] [address] Care Team Providers Care Movie Writer Name Role Phone Brea Jj MD Primary Care Provider [phone] Reason for Visit * Reason Comments Med Refill Encounter Details Date Type Department Care Team ([facility] st Contact Info) Description 12/08/[address] [facility] [address] [place] [phone] Marlene Soto MD [address] [facility] [address] [facility] [place] [phone] Edema, unspecified type Social History Tobacco Use [...] type documented in this encounter Care Teams Movie Writer Relationship Specialty Start Date End Date Brea Jj MD [address] [place] [address] PCP - General 12/24/22 documented as of this encounter
--- OUTSIDE RECORDS SUMMARY | 2025-06-24 09:53 | XMS_ITS | Clinical Summary ---
Author Organization [facility] Address [address] [place] [address] Care Team Providers Care Patrol Community Service Officer Name Role Phone Brea Jj MD Primary Care Provider [phone] Allergies No known active allergies Medications albuterol [...] Description 03/28/2025 9:15 AM EDT Office Visit [address] [phone] Marlene Soto MD Coronary-myocardial bridge (Primary Dx); Dyspnea on exertion; Other pulmonary embolism without acute cor pulmonale, unspecified chronicity (CMS/HCC) 03/27/2025 Orders Only [address] [address] Provider, MD iJ from Last 3 Months Family History Medical [...] patient's age to complete this topic Insurance [facility] MEDICAID Care Teams Patrol Community Service Officer Relationship Specialty Start Date End Date Brea Jj MD [address] [place] [address] PCP - General 12/24/22
--- OUTSIDE RECORDS SUMMARY | 2025-06-24 10:05 | XMS_ITS | CCD ---
Author Organization [facility] Care Team Providers Care Tire Classifier Name Role Phone TOSHIA SAM Attending Unavailable TOSHIA SAM Admitting Unavailable SELF, REFERRED Referring Unavailable SELF, REFERRED Primary Care Unavailable AICHHOLZ, FINISHING TRIMMER BREA Primary Care Unavailable SAMSA ., CORRIAN Consulting Unavailable SAMSA ., CORRINA Admitting Unavailable SAMSA ., CORRINA Attending Unavailable AICHHOLZ, FINISHING TRIMMER BREA Attending Unavailable AICHHOLZ, FINISHING TRIMMER BREA Consulting Unavailable AICHHOLZ, FINISHING TRIMMER BREA Primary Care Unavailable AICHHOLZ, FINISHING TRIMMER BREA Admitting Unavailable AICHHOLZ, FINISHING TRIMMER BREA Primary Care Unavailable DR MIGUEL MEDEROS Consulting Unavailable SAMSA ., CORRINA Admitting Unavailable SAMSA ., CORRINA Attending Unavailable SAMSA ., CORRINA Consulting Unavailable SAMSA ., CORRINA Attending Unavailable SAMSA ., CORRINA Consulting Unavailable SAMSA ., CORRINA Admitting Unavailable AICHHOLZ, FINISHING TRIMMER RBEA Primary Care Unavailable AICHHOLZ, FINISHING TRIMMER BREA Attending Unavailable LETY, DR LEANA Worrell Consulting Unavailable AICHHOLZ, FINISHING TRIMMER BREA Primary Care Unavailable AICHHOLZ, FINISHING TRIMMER BREA Admitting Unavailable AICHHOLZ, FINISHING TRIMMER BREA Consulting Unavailable PAY ., DR SALAZAR Admitting Unavailable PAY ., DR SALAZAR Attending Unavailable PAY ., DR SALAZAR Consulting Unavailable AICHHOLZ, FINISHING TRIMMER BREA Primary Care Unavailable MEDARDOCHNY .JUAN Consulting Unavailabl e Rastealla, Justine Consulting Unavailable AICHHOLZ, FINISHING TRIMMER BREA Primary Care Unavailable PAY ., DR SALAZAR Attending Unavailable PAY ., DR SALAZAR Admitting Unavailable GRECHNY .JUAN Consulting Unavailabl e POLICTERESA, KENDY Consulting Unavailable AICHHOLZ, FINISHING TRIMMER BREA Attending Unavailable AICHHOLZ, FINISHING TRIMMER BREA Consulting Unavailable AICHHOLZ, FINISHING TRIMMER BREA Primary Care Unavailable AICHHOLZ, FINISHING TRIMMER BREA Admitting Unavailable AICHHOLZ, BREA J Primary Care Physician Yessica SPENCER Unavailable Анна AFTER SCHOOL COORDINATOR, Brea Unavailable Jose M Light MD Primary Care Provider Ramses Hair Attending Unavailable Moses Fischer Attending Unavailable Mariama Barcenas Attending Unavailable Gigibosjose, Mariama Chen Attending Unavailable GigiboskeMariama Attending Unavailable Teganke, Mariama Chen Admitting Unavailable Demboske, Mariama Chen Admitting Unavailable Mariama Barcenas Attending Unavailable MD Roby Bob Admitting Unavail able MD Roby Bob Attending Unavail able Анна AFTER SCHOOL COORDINATOR, Brea Unavailable Jose M Light MD Primary Care Provider Анан AFTER SCHOOL COORDINATOR, Brea Unavailable Mariama Barcenas Admitting Unavailable Mariama Barcenas Attending Unavailable Suzanna Eddy Attending Unavaila MARLENE Anderson Attending Unavailable Brea Jj Attending Provider Marshall Mckeon MD Admit Provider Marshall Mckeon MD Attending Provider Brea Jj Primary Care Provider BREA JJ Attending Unavailable LADONNA BANG Attending Unavailable BREA JJ Referring Unavailable CEHLEHOLBREA Najera Attending Unavailable LADONNA BANG Attending Unavailable BREA JJ Attending Unavailable BREA JJ Attending Unavailable BREA JJ Attending Unavailable BREA JJ Attending Unavailable Brea Jj Admitting Unavailable Brea Jj Attending Unavailable Marshall Mckeon Admitting Unavailable Marshall Mckeon Attending Unavailable Brea Jj Primary Care Unavailable Allergies Allergy Classification Reported Allergen(s) Allergy Type Date of Onset Reaction(s) Facility (2 sources) No Known Medication Allergies; Translations: [No Known Medication Allergies] Propensity to adverse reactions (disorder) [facility] Repository Medications Current Medications Medication Drug Class(es) Dates Sig (Normalized) Sig (Original) albuterol 0.83 mg/ml inhalation solution (20 sources) beta2-Adrenergic Agonist Start: 07-14-2021 take 2.5 mg by inhalation three times daily Albuterol Sulfate 2.5 mg /3 mL (0.083 %) solution for nebulization Active 2.5 MG INHALATION Three times daily 90 July 14, 2021 12:00am Complies with drug therapy Start: 03-31-2020 take 1 puff(s) by in halation every four to six hours as needed Albuterol Sulfate (Ventolin Hfa) 90 mcg/actuation Hfa Aerosol Inhaler Active 2 PUFF INHALATION EVERY 4-6 HOURS as needed for Shortness Of Breath March 31, 2020 12:00am Complies with drug therapy take 2 puff(s) by mo uth every four hours as needed Ventolin HFA 108 (90 Base) MCG/ACT inhaler INHALE 2 PUFFS BY MOUTH FOR SHOTNESS OF BREATH EVERY 4 HOURS NEEDED Active albuterol 0.833 mg/ml / ipratropium bromide 0.167 mg/ml inhalation solution (20 sources) Anticholinergic, beta2-Adrenergic Agonist Start: 06-17-2023 take 3 mL by inhalation four times daily albuterol-ipratropium Inh Deb[place] 3 mL UD 3 mL, Inhalation, QID, 60 EA, Refill(s) 0, Shortness of breath or wheezing Start Date: 06/17/23 Status: Ordered Quantity: 60.0 Unit: EA Repeat number: 1 ALPRAZolam 0.25 mg oral tablet (2 sources) [...] BID, # 180 tab(s), Refills(s) 3, Pharmacy: [facility], 175, cm, 06/28/23 10:58:00 EDT, [...] Inhibitor, Nonsteroidal Anti-inflammatory Drug Start: 05-09-2024 End: 06-27-2025 take 1 tablet by mouth once daily aspirin (Aspirin Low Dose) 81 MG EC tablet Indications: Essential (primary) hypertension , Type 2 diabetes mellitus without complication, without long-term current use of insulin (HCC) Take 1 tablet (81 mg) by mouth Daily 30 tablet 5 05/28/2025 06/27/2025 Active Start: 06-17-2023 take 1 tablet by tamar th once daily Aspirin Low Dose 81 mg oral enteric coated tablet 81 mg = 1 tab(s), Oral, Daily, Refills(s) 0, Blood Thinner Start Date: 06/17/23 Status: Ordered Repeat number: 1 Start: 03-31-2020 take 1 tablet by tamar th once daily Aspirin 81 mg Tablet,Chewable Active 81 MG PO Daily March 31, 2020 12:00am Complies with drug therapy take 1 tablet by tamar th in the morning Aspirin Low Dose 81 MG EC tablet Take 81 mg by mouth in the morning. 0 Active atorvastatin 40 mg oral tablet (20 sources) HMG-CoA Reductase Inhibitor Start: 10-15-2024 End: 06-27-2025 take 1 tablet by mouth at bedtime atorvastatin (Lipitor) 40 MG tablet Indications: Mixed hyperlipidemia Take 1 tablet (40 mg) by mouth at bedtime 30 tablet 5 05/28/2025 06/27/2025 Active Start: 06-17-2023 ATORVASTATIN C ALCIUM 40 MG TABLET ATORVASTATIN CALCIUM 40 MG TABLET Start Date: 06/17/23 Status: Ordered Start: 03-31-2020 End: 10-11-2024 take 1 tablet by mouth at bedtime atorvastatin (Lipitor) 40 MG tablet Indications: Mixed hyperlipidemia (CMS/HCC) Take 1 tablet (40 mg) by mouth at bedtime 30 tablet 5 07/24/2024 08/23/2024 Active benzonatate 100 mg oral capsule (17 sources) Non-narcotic Antitussive Start: 02-22-2025 take 1 capsule by mouth three times daily as needed for cough benzonatate (Tessalon) 100 MG capsule Take 100 mg by mouth 3 (three) times a day as needed for cough 02/22/2025 Active Budesonide-Formoterol (2 sources) Corticosteroid, beta2-Adrenergic Agonist Start: 03-31-2020 take 1 puff(s) by inhalation once daily as needed Budesonide-Formo terol 160-4.5 mcg/actuation Hfa Aerosol Inhaler Active 2 PUFF INHALATION Daily as needed for Shortness Of Breath March 31, 2020 12:00am Complies with drug therapy busPIRone hydrochloride 15 mg oral tablet (20 sources) Start: 06-17-2023 End: 06-27-2025 take 1 tablet by mouth in the morning busPIRone (Buspar) 15 MG tablet Indications: Anxiety and depression Take 1 tablet (15 mg) by mouth in the morning and 1 tablet (15 mg) before bedtime. 60 tablet 5 05/28/2025 06/27/2025 Active calcium carbonate 1500 mg oral tablet (2 sources) Start: 01-11-2025 take 1 mg by mouth once daily as needed calcium (as carbonate) 600 mg oral tablet mg tab(s), Oral, Daily, PRN Indigestion, Refills(s) 0 Start Date: 01/11/25 Status: Ordered Repeat number: 1 calcium carbonate 1500 mg / cholecalciferol 200 unt oral tablet (20 sources) Vitamin D Start: 05-02-2025 take 1 tablet by mouth in the morning Calcium Carb-Cholecalcif troy 600-5 MG-MCG tablet Take 1 tablet by mouth in the morning and 1 tablet before bedtime. 05/02/2025 Active Start: 05-09-2024 End: 04-05-2025 take 1 tablet by mouth in the morning Calcium Carb-Cholecalciferol 600-5 MG-MCG tablet Indications: Osteopenia after menopause Take 1 tablet by mouth in the morning and 1 tablet before bedtime. 60 tablet 5 03/06/2025 04/05/2025 Active Start: 06-09-2023 take 1 tablet by tamar th in the morning Calcium Carb-Cholecalciferol 600-5 MG-MCG tablet Take 1 tablet by mouth in the morning and 1 tablet before bedtime. 0 06/09/2023 Active celecoxib 200 mg oral capsule (20 sources) Nonsteroidal Anti-inflammatory Drug Start: 01-11-2025 take 1 mg by mouth once daily CeleBREX 200 mg Cap mg cap(s), Oral, Daily, Refills(s) 0, Pain Start Date: 01/11/25 Status: Ordered Repeat number: 1 Start: 03-31-2020 End: 01-04-2025 take 1 capsule by mouth once daily celecoxib (CeleBREX) 200 MG capsule Indications: Arthritis Take 1 capsule (200 mg) by mouth Daily 30 capsule 5 12/05/2024 01/04/2025 Active clonazePAM 0.5 mg oral tablet (20 sources) Benzodiazepine Start: 01-11-2025 take 2 tablets by mouth three times daily ClonazePAM 0.5 mg Tab mg tab(s), Oral, TID, Refills(s) 0, Anxiety Start Date: 01/11/25 Status: Ordered Repeat number: 1 Start: 05-11-2024 End: 06-09-2025 take 1 tablet by mouth at bedtime clonazePAM (KlonoPIN) 0.5 MG tablet Indications: Anxiety and depression , Restless leg syndrome , Other insomnia TAKE 1 TABLET (0.5 MG) BY MOUTH AT BEDTIME 30 tablet 2 05/10/2025 06/09/2025 Active Start: 12-05-2023 End: 01-04-2024 take 1 tablet by mouth at bedtime clonazePAM (KlonoPIN) 0.5 MG tablet Indications: Other insomnia , Anxiety and depression (CMS/HCC) , Restless leg syndrome Take 1 tablet (0.5 mg) by mouth at bedtime 30 tablet 1 12/05/2023 01/04/2024 Active codeine phosphate 2 mg/ml / guaiFENesin 20 mg/ml oral solution (17 sources) Opioid Agonist Start: 02-22-2025 guaiFENesin-co deine (Robitussin-AC) 100-10 MG/5ML syrup TAKE 2 TEASPOONSFUL (10ML) BY MOUTH EVERY 6 HOURS NEEDED 02/22/2025 Active Daily Harvinder oral tablet (10 sources) Start: 06-17-2023 Daily Harvinder ora l tablet 1 tab(s), Oral, Daily, 30 tab(s), Refill(s) 0 Start Date: 06/17/23 Status: Ordered dicyclomine hydrochloride 20 mg oral tablet (20 sources) Anticholinergic Start: 01-11-2025 dicyclomine (B entyl) 20 MG tablet See Instructions, when needed, Refills(s) 0 01/11/2025 Active Start: 12-03-2024 End: 01-02-2025 take 1 tablet [...] # 28 cap(s), Refills(s) 0, Pharmacy: [id number], 175, cm, 09/25/23 18:25:00 EST, Height/Length Dosing, 121, kg, 09/25/23 18:25:00 EST, Weight Dosing Start Date: 09/25/23 Stop Date: 10/02/23 Status: Ordered Start: 03-31-2020 End: 07-08-2021 take 1 tablet by mouth twice daily as needed for pain Dicyclomine 20 mg Tablet Active 20 MG PO Twice daily as needed for abdominal pain July 08, 2021 12:00am Complies with drug therapy doxepin hydrochloride 10 mg oral capsule (9 sources) Tricyclic Antidepressant take 1 capsule by mouth at bedtime doxepin (SINEquan) 10 MG capsule Take 10 mg by mouth at bedtime Active DULoxetine 60 mg delayed release oral capsule (20 sources) Serotonin and Norepinephrine Reuptake Inhibitor Start: 03-31-20 End: 06-27-20 take 1 capsule by mouth once daily DULoxetine (Cymbalta) [address] capsule Indications: Anxiety and depression Take 1 capsule (60 mg) by mouth Daily 30 capsule 5 05/28/2025 06/27/2025 Active ferrous sulfate 325 mg oral tablet (20 sources) Start: 02-01-20 take 1 tablet by mouth at mealtime FeroSul 325 (65 Fe) MG tablet Take 325 mg by mouth in the morning. Take with meals. 01/31/2025 Active Start: 10-29-2024 End: 01-02-2025 take 1 tablet [...] Discontinued (Reorder) Ferrousal 325 mg oral tablet (4 sources) Start: 01-19-2024 take 1 tablet by mouth once daily Ferrousal 325 mg oral tablet 325 mg = 1 tab(s), Oral, Daily, # 30 tab(s), Refills(s) 6, Pharmacy: [facility], 175, cm, 01/16/24 11:22:00 EDT, Height/Length Dosing, 118, kg, 01/16/24 11:22:00 EDT, Weight Dosing Start Date: 01/19/24 Status: Ordered Quantity: 30.0 Unit: tab(s) Repeat number: 7 Start: 01-19-2024 take 1 tablet by tamar th once daily Ferrousal 325 mg oral tablet 325 mg = 1 tab(s), Oral, Daily, # 30 tab(s), Refills(s) 6, Pharmacy: [facility], 175, cm, 01/16/24 11:22:00 EDT, Height/Length Dosing, 118, kg, 01/16/24 11:22:00 EDT, Weight Dosing Start Date: 01/19/24 Status: Ordered fluocinonide 0.5 mg/ml topical cream (20 sources) Corticosteroid Start: 12-10-2024 fluocinonide (Lidex) 0.05 % cream Indications: Other atopic dermatitis Apply thin layer (1 g) to lower legs, up to twice a day when flared, do not use one the face, groin, or underarms, 30 day supply 80 g 11 12/10/2024 Active fluticasone propionate 0.05 mg/actuat metered dose nasal spray (20 sources) Corticosteroid Start: 11-05-2024 End: 02-25-2025 take 2 spray(s) nasal route once daily fluticasone (Flonase) 50 MCG/ACT nasal spray Administer 2 sprays into each nostril Daily 11/05/2024 02/25/2025 Discontinued (Ineffective) Start: 06-17-2023 take 2 puff(s) by in halation twice daily Flovent HFA 110 Aerosol = 2 puff(s), Inhalation, BID, # 12 gram, Refills(s) 0 Start Date: 06/17/23 Status: Ordered Quantity: 12.0 Unit: g Repeat number: 1 Start: 06-17-2023 fluticasone Na margaret 0.05 mg/inh [place] 2 spray(s), Nasal, Daily, 16 gram, Refill(s) 0, each nostril, Allergy symptoms Start Date: 06/17/23 Status: Ordered Quantity: 16.0 Unit: g Repeat number: 1 Start: 06-17-2023 fluticasone Na margaret 0.05 mg/inh [place] 2 spray(s), Nasal, Daily, 16 gram, Refill(s) 0, each nostril Start Date: 06/17/23 Status: Ordered Start: 04-13-2023 End: 10-29-2024 take 2 spray(s) nasal route once daily fluticasone (Flonase) 50 MCG/ACT nasal spray INSTILL 2 SPRAYS IN EACH NOSTRIL ONCE DAILY 04/13/2023 10/29/2024 Discontinued (Therapy completed) Start: 03-31-2020 End: 07-08-2021 Fluticasone Propionate 50 mcg/actuation [place],Suspension Discontinued 2 SPRAY INTRANASAL Daily March 31, 2020 12:00am July 08, 2021 11:02pm take 2 puff(s) by in halation in [...] inhalation aerosol 2 puff(s), Inhalation, BID, Refill(s) 11, COPD Start Date: 06/17/23 Status: Ordered Repeat number: 1 take 2 puff(s) by in halation in the morning Bevespi Aerosphere 9-4.8 MCG/ACT aerosol Inhale 2 puffs in the morning and 2 puffs before bedtime. Active furosemide 20 mg oral tablet (20 sources) Loop Diuretic Start: 06-09-2023 End: 06-27-2025 take 1 tablet by mouth once daily furosemide (Lasix) 20 MG tablet Indications: Edema of both lower extremities Take 1 tablet (20 mg) by mouth Daily 30 tablet 5 05/28/2025 06/27/2025 Active gabapentin 300 mg oral capsule (20 sources) Anti-epileptic Agent Start: 06-17-2023 take 1 capsule by mouth twice daily gabapentin 300 mg Cap 300 mg = 1 cap(s), Oral, BID, # 60 cap(s), Refills(s) 0, Neuropathy Start Date: 06/17/23 Status: Ordered Quantity: 60.0 Unit: cap(s) Repeat number: 1 Start: 07-08-2021 End: 06-27-2025 take 1 capsule by mouth once daily gabapentin (Neurontin) 300 MG capsule Indications: Restless leg syndrome Take 1 capsule (300 mg) by mouth Daily 30 capsule 5 05/28/2025 06/27/2025 Active 12 hr guaiFENesin 600 mg extended release oral tablet (17 sources) Start: 02-22-2025 take 1 tablet by mouth twice daily as needed for congestion guaiFENesin (Mucinex) 600 MG 12 hr tablet TAKE ONE TABLET BY MOUTH TWICE A DAY NEEDED FOR CONGESTION 02/22/2025 Active hydroCHLOROthiazide 25 mg / lisinopril 20 mg oral tablet (20 sources) Thiazide Diuretic, Angiotensin Converting Enzyme Inhibitor Start: 03-31-2020 End: 06-27-2025 take 1 tablet by mouth once daily lisinopril-hydro CHLOROthiazide 20-25 MG tablet Indications: Primary hypertension Take 1 tablet by mouth Daily 30 tablet 5 05/28/2025 06/27/2025 Active lamoTRIgine 25 mg oral tablet (20 sources) Mood Stabilizer, Anti-epileptic Agent Start: 10-15-2024 End: 06-27-2025 take 2 tablets by mouth at bedtime lamoTRIgine (LaMICtal) 25 MG tablet Indications: Anxiety and depression Take 2 tablets (50 mg) by mouth at bedtime 60 tablet 5 05/28/2025 06/27/2025 Active Start: 04-10-2024 End: 08-23-2024 take 2 tablets by mouth at bedtime lamoTRIgine (LaMICtal) 25 MG tablet Indications: Anxiety and depression (CMS/HCC) Take 2 tablets (50 mg) by mouth at bedtime 60 tablet 5 07/24/2024 08/23/2024 Active Start: 10-12-2023 take 2 tablets by mo [facility] at bedtime lamoTRIgine (LaMICtal) 25 MG tablet Indications: Anxiety and depression (CMS/HCC) Take 2 tablets (50 mg) by mouth at bedtime 60 tablet 5 10/12/2023 Active Start: 06-17-2023 take 1 tablet by tamar th twice daily lamotrigine 25 mg Tab 25 mg = 1 tab(s), Oral, BID, # 60 tab(s), Refills(s) 0 Start Date: 06/17/23 Status: Ordered levoFLOXacin 750 mg oral tablet (2 sources) Quinolone Antimicrobial Start: 07-14-2021 take 1 tablet by mouth once daily Levofloxacin 750 mg tablet Active 750 MG PO Daily July 14, 2021 12:00am Complies with drug therapy magnesium oxide 400 mg oral tablet (4 sources) Start: 05-30-2025 End: 07-05-2025 take 1 tablet by mouth in the morning magnesium oxide (Mag-Ox) 400 MG tablet Indications: Hypomagnesemia Take 1 tablet (400 mg) by mouth in the morning and 1 tablet (400 mg) before bedtime. 60 tablet 1 06/05/2025 07/05/2025 Active Multiple Vitamin (Multivitamin) tablet (20 sources) Start: 05-02-2025 take 1 tablet by mouth once daily Multiple Vitamin (Multivitamin) tablet Take 1 tablet by mouth Daily 05/02/2025 Active Start: 04-04-2025 End: 05-04-2025 take 1 tablet by mouth once daily Multiple Vitamin (Multivitamin) tablet Indications: Vitamin deficiency Take 1 tablet by mouth Daily 30 tablet 5 04/04/2025 05/04/2025 Active Start: 12-05-2024 End: 04-04-2025 Multiple Vitamin (Multivitam in) tablet 12/05/2024 04/04/2025 Discontinued Start: 12-05-2024 Multiple Vitam in (Multivitamin) tablet 12/05/2024 Active Start: 10-04-2024 End: 11-03-2024 take 1 tablet by mouth once daily Multiple Vitamin (Multivitamin) tablet Indications: Gastroesophageal reflux disease without esophagitis Take 1 tablet by mouth Daily 30 tablet 5 10/04/2024 11/03/2024 Active Start: 05-09-2024 End: 10-04-2024 take 1 tablet by mouth once daily Multiple Vitamin (Multivitamin) tablet Take 1 tablet by mouth Daily 05/09/2024 10/04/2024 Discontinued Start: 05-09-2024 take 1 tablet by [facility] once daily Multiple Vitamin (Multivitamin) tablet Take 1 tablet by mouth Daily 05/09/2024 Active Multivitamin Tablet (2 sources) Start: 03-31-2020 take 1 tablet by mouth once daily Multivitamin Tablet Active 1 TAB PO Daily March 31, 2020 12:00am Complies with drug therapy ondansetron 4 mg disintegrating oral tablet (20 sources) Serotonin-3 Receptor Antagonist Start: 12-21-2023 End: 06-07-2025 take 1 tablet by mouth every eight hours for nausea ondansetron ODT (Zofran-ODT) 4 MG disintegrating tablet Indications: Vomiting and diarrhea Take 1 tablet (4 mg) by mouth every 8 (eight) hours if needed for nausea or vomiting for up to 10 days 30 tablet 05/28/2025 06/07/2025 Active Start: 03-31-2020 End: 07-08-2021 take 1 tablet by mouth every eight hours as needed for nausea Ondansetron 4 mg Tablet,Disintegrating Discontinued 4 MG PO Q8H as needed for Nausea March 31, 2020 12:00am July 08, 2021 11:01pm pantoprazole 40 mg delayed release oral tablet (20 sources) Proton Pump Inhibitor Start: 07-06-2024 End: 06-27-2025 take 1 tablet by mouth before mealtime pantoprazole (ProtoNix) 40 MG EC tablet Indications: Gastroesophageal reflux disease without esophagitis Take 1 tablet (40 mg) by mouth in the morning. Take before meals. Do not crush, chew, or split. 30 tablet 5 05/28/2025 06/27/2025 Active Start: 03-31-2020 End: 07-08-2021 take 1 tablet by mouth once daily Pantoprazole 40 mg Tablet,Delayed Release (Dr/Ec) Discontinued 40 MG PO Daily March 31, 2020 12:00am July 08, 2021 11:01pm pioglitazone 15 mg oral tablet (20 sources) Peroxisome Proliferator Receptor alpha Agonist, Peroxisome Proliferator Receptor gamma Agonist, Thiazolidinedione Start: 07-08-2021 End: 06-27-2025 take 1 tablet by mouth once daily pioglitazone (Actos) 15 MG tablet Indications: Type 2 diabetes mellitus without complication, without long-term current use of insulin (HCC) Take 1 tablet (15 mg) by mouth Daily 30 tablet 5 05/28/2025 06/27/2025 Active potassium chloride 10 meq extended release oral tablet (20 sources) Start: 05-02-2025 End: 06-27-2025 take 1 tablet by mouth once daily potassium chloride CR (Klor-Con) 10 MEQ ER tablet Indications: Edema of both lower extremities Take 1 tablet (10 mEq) by mouth Daily 30 tablet 5 05/28/2025 06/27/2025 Active Start: 02-06-2025 End: 03-27-2025 take 1 tablet by mouth once daily potassium chloride CR (Klor-Con) 10 MEQ ER tablet Indications: Edema of both lower extremities Take 1 tablet (10 mEq) by mouth Daily 30 tablet 5 02/25/2025 03/27/2025 Active Start: 02-06-2025 End: 03-08-2025 take 1 tablet by mouth once daily potassium chloride CR (Klor-Con M10) 10 MEQ ER tablet Indications: Edema of both lower extremities Take 1 tablet (10 mEq) by mouth Daily Do not crush or chew. 30 tablet 2 02/06/2025 02/25/2025 Discontinued (Ineffective) Start: 12-03-2024 End: 01-02-2025 take 1 tablet by mouth once daily in the morning potassium chloride CR (Klor-Con) 10 MEQ ER tablet Indications: Edema of both lower extremities Take 1 tablet (10 mEq) by mouth Daily Take 10 mEq by mouth in the morning. 30 tablet 5 12/03/2024 01/02/2025 Active Start: 06-17-2023 take 1 tablet by tamar twice daily Potassium Chloride (Fth-Jyzt-Qjo 10) 10 mEq oral tablet, extended release 10 mEq = 1 tab(s), Oral, BID, Refills(s) 0, Prophylaxis Start Date: 06/17/23 Status: Ordered Repeat number: 1 Start: 06-17-2023 Potassium Chlo ride (Oby-Cnyd-Llh 10) 10 mEq oral tablet, extended release Refills(s) 0 Start Date: 06/17/23 Status: Ordered pramipexole dihydrochloride 0.5 mg oral tablet (20 sources) Nonergot Dopamine Agonist Start: 06-17-2023 End: 06-27-2025 take 1 tablet by mouth at bedtime pramipexole (Mirapex) 0.5 MG tablet Indications: Restless leg syndrome Take 1 tablet (0.5 mg) by mouth at bedtime 30 tablet 5 05/28/2025 06/27/2025 Active Start: 03-31-2020 take 2 tablets by mo [facility] once daily at bedtime Pramipexole 0.25 mg Tablet Active 0.5 MG PO Daily at bedtime March 31, 2020 12:00am Complies with drug therapy predniSONE 20 mg oral tablet (19 sources) Start: 02-19-2025 predniSONE (De ltasone) 20 MG tablet TAKE THREE TABLETS BY MOUTH DAILY FOR 3 DAYS,THEN 2 TABS FOR 3 DAYS, THEN 1 TAB FOR 3 DAYS. 02/19/2025 Active Start: 07-14-2021 End: 05-28-2025 Prednisone 10 mg tablet Disc ontinued 10 MG PO Daily July 14, 2021 12:00am May 28, 2025 11:53pm Take 2 tabs x 2 days then 1 tab x 3 days then stop. rifAXIMin 550 mg oral tablet (10 sources) Rifamycin Antibacterial Start: 12-26-2024 End: 02-25-2025 rifAXIMin (Xifaxan) 550 MG tablet Indications: Irritable bowel syndrome with diarrhea Three times daily for 14 days 42 tablet 12/26/2024 02/25/2025 Discontinued (Therapy completed) sucralfate 1000 mg oral tablet (2 sources) Aluminum Complex Start: 07-08-2021 take 1 tablet by mouth three times daily Sucralfate 1 gram Tablet Active 1 GM PO Three times daily July 08, 2021 12:00am Non-compliance of drug therapy theophylline 300 mg extended release oral tablet (20 sources) Methylxanthine Start: 06-09-2023 take 1 tablet by mouth every twelve hours theophylline ER (Franki-Dur) 300 MG 12 hr tablet TAKE 1 12 TABLETS BY MOUTH EVERY 12 HOURS 06/09/2023 Active traZODone hydrochloride 50 mg oral tablet (12 sources) Serotonin Reuptake Inhibitor Start: 06-17-2023 take 1 tablet by mouth once daily at bedtime traZODONE 50 mg Tab 50 mg = 1 tab(s), Oral, Once a day (at bedtime), # 30 tab(s), Refills(s) 0 Start Date: 06/17/23 Status: Ordered Start: 07-08-2021 End: 05-28-2025 take 2 tablets by mouth once daily at bedtime Trazodone 50 mg Tablet Discontinued 100 MG PO Daily at bedtime July 08, 2021 12:00am May 28, 2025 11:54pm triamcinolone acetonide 1 mg/ml topical cream (2 sources) Corticosteroid Start: 10-29-2024 End: 11-12-2024 triamcinolone (Kenalog) 0.1 % cream Indications: Rash Apply topically 2 (two) times a day for 14 days 60 g 10/29/2024 11/12/2024 Active Ventolin HFA 90 mcg/inh Aerosol-Adpt (12 sources) Start: 06-17-2023 take 1 puff(s) by inhalation four times daily for wheezing Ventolin HFA 90 mcg/inh Aerosol-Adpt 1 puff(s), Inhalation, QID for wheezing, 18 gram, Refill(s) 0, Shortness of breath or wheezing Start Date: 06/17/23 Status: Ordered Quantity: 18.0 Unit: g Repeat number: 1 Start: 06-17-2023 take 1 puff(s) by in halation four times daily for wheezing Ventolin HFA 90 mcg/inh Aerosol-Adpt 1 puff(s), Inhalation, QID for wheezing, 18 gram, Refill(s) 0 Start Date: 06/17/23 Status: Ordered Zofran ODT 4 mg Tab-Dis (8 sources) Start: 09-25-2023 take 1 tablet by mouth every eight hours Zofran ODT 4 mg Tab-Dis 4 mg = 1 tab(s), Oral, q8hr, # 12 tab(s), Refills(s) 0, Pharmacy: [facility], 175, cm, 09/25/23 18:25:00 EST, Height/Length Dosing, 121, kg, 09/25/23 18:25:00 EST, Weight Dosing Start Date: 09/25/23 Status: Ordered Quantity: 12.0 Unit: tab(s) Repeat number: 1 Start: 09-25-2023 take 1 tablet by tamar th every eight hours Zofran ODT 4 mg Tab-Dis 4 mg = 1 tab(s), Oral, q8hr, # 12 tab(s), Refills(s) 0, Pharmacy: [facility], 175, cm, 09/25/23 18:25:00 EST, Height/Length [...] Date: 06/17/23 Stop Date: 06/17/23 Status: Completed melatonin 3 mg oral tablet (2 sources) Start: 03-31-2020 End: 07-08-2021 take 1 tablet by mouth at bedtime as needed Melatonin 3 mg Tablet Discontinued 3 MG PO Bedtime as needed for Insomnia March 31, 2020 12:00am July 08, 2021 11:01pm metFORMIN hydrochloride 500 mg oral tablet (2 sources) Biguanide Start: 03-31-2020 End: 07-08-2021 take 2 tablets by mouth once daily in the morning Metformin 500 mg Tablet Discontinued 500 MG PO Twice daily March 31, 2020 12:00am July 08, 2021 11:02pm 1000mg QAM 500mg QPM metoprolol tartrate 50 mg oral tablet (11 sources) beta-Adrenergic Aleks Start: 03-31-2020 End: 07-08-2021 take 1 tablet by mouth twice daily Metoprolol Tartrate 50 mg Tablet Discontinued 50 MG PO Twice daily March 31, 2020 12:00am July 08, 2021 11:01pm take 1 tablet by mouth once charly y metoprolol succinate XL (Toprol-XL) 25 MG 24 hr tablet Take 25 mg by mouth Daily Active rOPINIRole 1 mg oral tablet (2 sources) Nonergot Dopamine Agonist Start: 03-31-2020 End: 07-08-2021 take 1 tablet by mouth once daily at bedtime Ropinirole 1 mg Tablet Discontinued 1 MG PO Daily at bedtime March 31, 2020 12:00am July 08, 2021 11:01pm Problems Active Problems Problem Classification Problem Date Documented Da te Episodic/Chronic Acute and unspecified renal failure (7 sources) Acute renal failure syndrome; Translations: [Acute kidney failure, unspecified] Onset: 5 05-29-2025 Episodic Allergic reactions (4 sources) Atopic dermatitis; Translations: [Other atopic dermatitis] 12-10-2024 Chronic Anxiety disorders (20 sources) Generalized anxiety disorder; [...] obstructive pulmonary disease, unspecified] Onset: 3 Chronic Comment on above: Problem List clean-u p per request of Phys. EHR Cmte Diabetes mellitus with complications (4 sources) Type 2 diabetes mellitus with other specified complication; Translations: [TYPE 2 DM W/OTHER SPEC COMPLICATION] Onset: 3 Chronic Diabetes mellitus without complication (20 sources) Type 2 diabetes mellitus without complication; Translations: [Type 2 diabetes mellitus without complications] Onset: 3 Chronic Comment on above: Problem List clean-u p per request of Phys. EHR Cmte Disorders of lipid metabolism (20 sources) Mixed hyperlipidemia; Translations: [Hyperlipidemia, unspecified] Onset: 2 10-12-2023 Chronic Esophageal disorders (20 sources) Gastroesophageal reflux disease without esophagitis; Translations: [Gastro-esophageal reflux disease without esophagitis] Onset: 4 05-23-2024 Chronic Essential hypertension (20 sources) Essential (primary) hypertension; Translations: [Essential hypertension] Onset: 3 Chronic Mood disorders (1 source) Depressive disorder; Translations: [Depression, unspecified] Onset: 3 Chronic Nausea and vomiting (20 sources) Nausea and vomiting; Translations: [Nausea with vomiting, unspecified] Onset: 3 Episodic Comment on above: Problem List clean-u p per request of Phys. EHR Cmte Nonspecific chest pain (2 sources) Chest pain; Translations: [Chest pain, unspecified] Onset: 3 Episodic Osteoarthritis (20 sources) Arthritis; Translations: [Unspecified osteoarthritis, unspecified site] Onset: 4 12-05-2023 Chronic Other aftercare (1 source) intermission coordinator (current) use of aspirin; Translations: [SLASHER OPERATOR CURRENT USE OF ASPIRIN] Onset: 3 Episodic Other aftercare (1 source) Other intermediate card tender (current) drug therapy; Translations: [OTH SLASHER OPERATOR CURRENT DRUG THERAPY] Onset: 3 Episodic Other aftercare (1 source) Long-term current use of drug therapy; Translations: [Other snf (current) drug therapy] Onset: 3 Episodic Other gastrointestinal disorders (20 sources) Irritable bowel syndrome with diarrhea; Translations: [Irritable bowel syndrome with diarrhea] Onset: 5 12-26-2024 Chronic Other gastrointestinal disorders (19 sources) Diarrhea; Translations: [Diarrhea, unspecified] Onset: 5 12-03-2024 Episodic Comment on above: Problem List clean-u p per request of Phys. EHR Cmte Other gastrointestinal disorders (1 source) Diarrhea, unspecified; Translations: [Diarrhea, unspecified] Onset: 5 Episodic Other hereditary and degenerative nervous system conditions (1 source) Restless legs syndrome; Translations: [RESTLESS LEGS SYNDROME] Onset: 3 Chronic Other hereditary and degenerative nervous system conditions (20 sources) Restless legs; Translations: [Restless legs syndrome] Onset: 3 12-05-2023 Chronic Other inflammatory condition of skin (2 sources) Lichen simplex chronicus; Translations: [Lichen simplex chronicus] 12-10-2024 Episodic Other lower respiratory disease (4 sources) Shortness of breath; Translations: [SHORTNESS OF BREATH] Onset: 3 Episodic Other lower respiratory disease (2 sources) Other forms of dyspnea; Translations: [Other forms of dyspnea] Onset: 3 Episodic Other lower respiratory disease (2 sources) Respiratory distress; Translations: [Acute respiratory distress] 10-12-2023 Episodic Comment on above: Problem List clean-u p per request of Phys. EHR Cmte Other lower respiratory disease (2 sources) Hypoxia; Translations: [Hypoxemia] 10-12-2023 Episodic Comment on above: Problem List clean-u p per request of Phys. EHR Cmte Other nutritional; endocrine; and metabolic disorders (1 source) Obesity, unspecified; Translations: [OBESITY UNSPECIFIED] Onset: 2 Chronic Other nutritional; endocrine; and metabolic disorders (1 source) Body mass index (BMI) 40.0-44.9, adult; Translations: [BODY MASS INDEX BMI 40.0-44.9 ADULT] Onset: 2 Chronic Other nutritional; endocrine; and metabolic disorders (1 source) Obesity; Translations: [Obesity, unspecified] Onset: 3 Chronic Other nutritional; endocrine; and metabolic disorders (20 sources) Body mass index 30+ - obesity; Translations: [Body mass index (BMI) 37.0-37.9, adult] Onset: 4 12-05-2023 Chronic Other nutritional; endocrine; and metabolic disorders (20 sources) Severe obesity; Translations: [Morbid (severe) obesity due to excess calories] Onset: 3 10-19-2023 Chronic Other nutritional; endocrine; and metabolic disorders (5 sources) Hypomagnesemia; Translations: [Hypomagnesemia] Onset: 5 05-30-2025 Chronic Peripheral and visceral atherosclerosis (20 sources) Atherosclerosis of aorta; Translations: [Atherosclerosis of aorta] Onset: 4 08-03-2024 Chronic Residual codes; unclassified (20 sources) Insomnia; Translations: [Other insomnia] Onset: 3 12-05-2023 Chronic Residual codes; unclassified (20 sources) Obstructive sleep apnea syndrome; Translations: [Obstructive sleep apnea (adult) (pediatric)] Onset: 3 12-05-2023 Chronic Comment on above: Problem List clean-u p per request of Phys. EHR Cmte Residual codes; unclassified (2 sources) Tobacco user; Translations: [Tobacco use] 10-12-2023 Episodic Comment on above: Problem List clean-u p per request of Phys. EHR Cmte Respiratory failure; insufficiency; arrest (adult) (20 sources) Dependence on supplemental oxygen; Translations: [Chronic respiratory failure with hypoxia] Onset: 3 Chronic Comment on above: Problem List clean-u p per request of Phys. EHR Cmte Screening and history of mental health and [...] Date Documented Da te Episodic/Chronic Abdominal pain (20 sources) Epigastric pain; Translations: [Unspecified abdominal pain] Onset: 03-26-2022 Resolved: 07-24-2024 Episodic Comment on above: Problem List clean-u p per request of Phys. EHR Cmte Deficiency and other anemia (20 sources) Iron deficiency anemia; Translations: [Iron deficiency anemia, unspecified] Onset: 07-23-2024 Episodic Malaise and fatigue (20 sources) Fatigue; Translations: [Other fatigue] Onset: 05-23-2024 05-23-2024 Episodic Noninfectious gastroenteritis (20 sources) Gastroenteritis; Translations: [Noninfective gastroenteritis and colitis, unspecified] Onset: 10-29-2024 10-29-2024 Episodic Nonmalignant breast conditions (20 sources) Mastodynia; Translations: [Mastodynia] Onset: 02-21-2024 Resolved: 07-24-2024 07-24-2024 Episodic Nutritional deficiencies (20 sources) Vitamin deficiency; Translations: [Vitamin deficiency, unspecified] Onset: 04-10-2024 04-10-2024 Episodic Other aftercare (4 sources) Encounter for therapeutic drug level monitoring; Translations: [ENC THERAPEUTC DRUG LEVL MONITORING] Onset: 11-04-2022 Episodic Other bone disease and musculoskeletal deformities (20 sources) Postmenopausal osteopenia; Translations: [Other specified disorders of bone density and structure, unspecified site] Onset: 03-08-2024 03-08-2024 Episodic Other gastrointestinal disorders (20 sources) Occult blood in stools; Translations: [Other fecal abnormalities] Onset: 12-25-2024 12-25-2024 Episodic Other lower respiratory disease (20 sources) Dyspnea on exertion; Translations: [Other forms of dyspnea] Onset: 12-24-2022 12-05-2023 Episodic Other nutritional; endocrine; and metabolic disorders (20 sources) Obesity caused by energy imbalance; Translations: [Morbid (severe) obesity due to excess calories] Onset: 05-23-2024 Resolved: 12-03-2024 07-24-2024 Chronic Other nutritional; endocrine; and metabolic disorders (20 sources) Unintentional weight loss; Translations: [Abnormal weight loss] Onset: 12-03-2024 12-03-2024 Episodic Other screening for suspected conditions (not mental disorders or infectious disease) (20 sources) Encounter for screening mammogram for malignant neoplasm of breast; Translations: [Patient encounter status] Onset: 04-30-2022 Episodic Other skin disorders (20 sources) Eruption; Translations: [Rash and other nonspecific skin eruption] Onset: 10-29-2024 10-29-2024 Episodic Other upper respiratory infections (20 sources) Acute maxillary sinusitis; Translations: [Acute maxillary sinusitis, unspecified] Onset: 01-10-2024 Resolved: 07-24-2024 07-24-2024 Episodic Pulmonary heart disease (20 sources) Other pulmonary embolism without acute cor pulmonale; Translations: [Pulmonary embolism] Onset: 06-16-2023 Episodic Residual codes; unclassified (20 sources) Bilateral lower limb edema; Translations: [Localized edema] Onset: 12-24-2022 12-05-2023 Episodic Results Test Name Value Interpretation Reference Range Facility ALL BASIC METABOLIC PANELon 06-05-2025 Anion gap [Moles/Vol] 12 mmol/L [facility] Calcium [Mass/Vol] 10.1 mg/dL 8.5 - 10. 1 mg/dL [facility] Chloride [Moles/Vol] 101 mmol/L 98 - 10 7 mmol/L [facility] CO2 [Moles/Vol] 32 mmol/L 21.0 - 32.0 mmol/L [facility] Creatinine [Mass/Vol] 0.87 mg/dL 0.55 - 1.02 mg/dL [facility] GFR/1.73 sq M.predicted CKD-EPI (S/P/Bld) [Vol rate/Area] >60 >=60 mL/min/1.73m 2 [facility] Glucose [Mass/Vol] 127 mg/dL High 74 - 106 mg/dL [facility] Potassium [Moles/Vol] 4 mmol/L 3.5 - 5.1 mmol/L [facility] Sodium [Moles/Vol] 141 mmol/L 136 - 145 mmol/L [facility] TBH EGFR-NON AF SENEGALESE >60 >=60 mL/min/1.73m 2 [facility] Urea nitrogen [Mass/Vol] 16 mg/dL 7.0 - 18.0 mg/dL [facility] Urea nitrogen/Creatinine [Mass ratio] 18.4 mg/mg [facility] ALL MAGNESIUMon 06-05-2025 Magnesium [Mass/Vol] 1.2 mg/dL Low 1.8 - 2 .4 mg/dL [facility] No Panel Informationon 06-05 Interpretation and review of laboratory results Abnormal [facility] ALL CBC WITH AUTO DIFFon BASOPHILS ABSOLUTE AUTO 0 [facility] Basophils/100 WBC (Bld) 0.1 % Low 0.2 - 2.0 % [facility] Eosinophils/100 WBC (Bld) 0.7 % Low 0.9 - 7.0 % [facility] Erythrocyte distribution width (RBC) [Ratio] 15.5 % High 11.0 - 15.0 % [facility] Hematocrit (Bld) [Volume fraction] 39.9 % 36.0 - 48.0 % [facility] Hemoglobin (Bld) [Mass/Vol] 13.4 g/dL 12.0 - 16.0 g/dL [facility] IMMATURE GRANULOCYTES ABS AUTO 0.02 [facility] Immature granulocytes/100 WBC (Bld) 0.2 % 0.0 - 0.5 % [facility] Interpretation and review of laboratory results Abnormal [facility] LYMPHOCYTES ABSOLUTE AUTO 1.2 [facility] Lymphocytes/100 WBC (Bld) 12.8 % Low 20.5 - 60.0 % [facility] MCH (RBC) [Entitic mass] 30.2 pg 26.7 - 34.0 pg [facility] MCHC (RBC) [Mass/Vol] 33.6 g/dL 29.9 - 35.2 g/dL [facility] MCV (RBC) [Entitic vol] 89.9 fL 81.0 - 99.0 fL [facility] MONOCYTES ABSOLUTE AUTO 1 High N [facility] Monocytes/100 WBC (Bld) 10.4 % 1.7 - 12.0 % [facility] NEUTROPHILS ABSOLUTE AUTO 7.1 High [facility] Neutrophils/100 WBC (Bld) 75.8 % High 43.0 - 75.0 % [facility] Platelet mean volume (Bld) [Entitic vol] 11.8 fL 9.5 - 13.5 fL [facility] TBH EO # 0.1 [facility]H PLT 155 [facility] TB RBC 4.44 [facility] WBC 9.4 [facility] Basic Metabolic Panelon 05-02 Creatinine Clr Calc Pharmacy 52.82 Normal [facility] Comment on above: Performed By: #### C BC, BMP, MG #### [facility] [address] [place] [address] [place] GFR/1.73 sq M.predicted MDRD (S/P/Bld) [Vol rate/Area] 37.536 mL/min/{1.73_m2} Normal [facility] Comment on above: Performed By: #### C BC, BMP, MG #### [place] [address] [place] Basophils [#/volume] in Bloo d by Automated countOrdered By: Debbie Alejandro on 05-29-2025 Basophils (Bld) [#/Vol] 0.0 10*3/uL Normal 0.0-0.2 [facility] Comment on above: Result Comment: PERF ORMED BY: [place] [address] PATHOLOGIST ELECTRICAL ENGINEERING TECHNOLOGIST DONALD MAJOR M.D. Performed By: #### C BC, BMP, MG #### [place] [address] [place] Basophils/100 leukocytes in Blood by Automated countOrdered By: Debbie Alejandro on 05-29-2025 Basophils/100 WBC (Bld) 0.5 % Normal . [facility] Comment on above: Performed By: #### C BC, BMP, MG #### [facility] [address] Calcium [Mass/volume] in Ser um or PlasmaOrdered By: Debbie Alejandro on 05-29-2025 Calcium [Mass/Vol] 8.7 mg/dL Normal 8.6-10.[address] [facility] Comment on above: Performed By: #### C BC, BMP, MG #### [facility] [address] Capillary blood glucose jacquelyn urement by glucometer (mass/volume)Ordered By: Marshall Mckeon on 05-29-2025 Glucose [Mass/Vol] 97 mg/dL Normal [facility] Comment on above: Random Glucose Refer ence Range is dependent on time and content of last meal. Glucose of more than 200 mg/dL in a nonstressed, ambulatory subject supports the diagnosis of Diabetes Mellitus. Result Comment: [place] om Glucose Reference Range is dependent on time and content of last meal. Glucose of more than 200 mg/dL in a nonstressed, ambulatory subject supports the diagnosis of Diabetes Mellitus. PERFORMED BY: [address] [place] [address] PATHOLOGIST ELECTRICAL ENGINEERING TECHNOLOGIST DONALD MAJOR M.D. Performed By: #### G PEGGY #### Point of Care testing , Carbon dioxide, total [Moles /volume] in Serum or PlasmaOrdered By: Debbie Alejandro on 05-29-2025 CO2 [Moles/Vol] 25.8 mmol/L Normal 21.0-31.0 [facility] Comment on above: Performed By: #### C BC, BMP, MG #### [facility] [address] Chloride [Moles/volume] in S melissa or PlasmaOrdered By: Debbie Alejandro on 05-29-2025 Chloride [Moles/Vol] 111 mmol/L High 98-107 [facility] Comment on above: Performed By: #### C BC, BMP, MG #### [facility] [address] [place] [address] [place] Complete Blood Count Auto Di ffon 05-29-2025 Mean Corpuscular HGB Conc 33.2 g/dL Normal 32.0-35.0 [facility] Comment on above: Performed By: #### C BC, BMP, MG #### [address] NRBC% 0.1 /100{WBC} Normal 0-0.5 [facility] Comment on above: Performed By: #### C BC, BMP, MG #### [address] White Blood Count 6.0 [CFU]/mL Normal 3.8-11.6 [facility] Comment on above: Performed By: #### C BC, BMP, MG #### [address] Creatinine [Mass/volume] in Serum or PlasmaOrdered By: Debbie Alejandro on 05-29-2025 Creatinine [Mass/Vol] 1.57 mg/dL High 0.60-1.20 [facility] Comment on above: Performed By: #### C BC, BMP, MG #### [place] [address] [place] Eosinophils [#/volume] in Bl ood by Automated countOrdered By: Debbie Alejandro on 05-29-2025 Eosinophils (Bld) [#/Vol] 0.1 10*3/uL Normal 0.0-0.45 [facility] Comment on above: Performed By: #### C BC, BMP, MG #### [place] [address] [place] Eosinophils/100 leukocytes i n Blood by Automated countOrdered By: Debbie Alejandro on 05-29-2025 Eosinophils/100 WBC (Bld) 2.1 % Normal . [facility] Comment on above: Performed By: #### C BC, BMP, MG #### [place] [address] [place] Erythrocyte distribution wid th [Ratio] by Automated countOrdered By: Debbie Alejandro on 05-29-2025 Erythrocyte distribution width (RBC) [Ratio] 15.5 % High 11.9-15.3 [facility] Comment on above: Performed By: #### C BC, BMP, MG #### [facility] [address] Erythrocytes [#/volume] in B lood by Automated countOrdered By: Debbie Alejandro on 05-29-2025 RBC (Bld) [#/Vol] 4.16 10*6/uL Normal 3.60-5.00 [facility] Comment on above: Performed By: #### C BC, BMP, MG #### [facility] [address] Glucose [Mass/volume] in Ser um or PlasmaOrdered By: Debbie Alejandro on 05-29-2025 Glucose [Mass/Vol] 105 mg/dL High 70-[address] [facility] Comment on above: ADA recommended refe rence rangeRandom Glucose Reference Range is dependent on time and content of last meal. Glucose of more than 200 mg/dL in a nonstressed, ambulatory subject supports the diagnosis of Diabetes Mellitus. Result Comment: [place] om Glucose Reference Range is dependent on time and content of last meal. Glucose of more than 200 mg/dL in a nonstressed, ambulatory subject supports the diagnosis of Diabetes Mellitus. ADA recommended reference range Performed By: #### C BC BMP, MG #### [facility] [address] Hematocrit [Volume Fraction] of Blood by Automated countOrdered By: Debbie Alejandro on 05-29-2025 Hematocrit (Bld) [Volume fraction] 37.2 % Normal 34.0-46.4 [facility] Comment on above: Performed By: #### C BC, BMP, MG #### [facility] [address] [place] [address] [place] Hemoglobin [Mass/volume] in BloodOrdered By: Debbie Alejandro on 05-29-2025 Hemoglobin (Bld) [Mass/Vol] 12.4 g/dL Normal 11.8-15.4 [facility] Comment on above: Performed By: #### C BC, BMP, MG #### [facility] [address] [place] [address] [place] Leukocytes [#/volume] correc aura for nucleated erythrocytes in Blood by Automated counOrdered By: Debbie Alejandro on 05-29-2025 WBC corrected for nucl RBC Auto (Bld) [#/Vol] 6.0 10*3/uL 3.8-11.6 [facility] Leukocytes [#/volume] in Blo od by Automated countOrdered By: Debbie Alejandro on 05-29-2025 WBC (Bld) [#/Vol] 6.0 10*3/uL Normal 3.8-11.[address] [facility] Comment on above: Performed By: #### C BC, BMP, MG #### [address] Lymphocytes [#/volume] in Bl ood by Automated countOrdered By: Debbie Alejandro on 05-29-2025 Lymphocytes (Bld) [#/Vol] 0.9 10*3/uL Low 1.00-4.8 [facility] Comment on above: Performed By: #### C BC, BMP, MG #### [address] Lymphocytes/100 leukocytes i n Blood by Automated countOrdered By: Debbie Alejandro on 05-29-2025 Lymphocytes/100 WBC (Bld) 15.5 % Normal . [facility] Comment on above: Performed By: #### C BC, BMP, MG #### [address] MCH [Entitic mass] by Automa aura countOrdered By: Debbie Alejandro on 05-29-2025 MCH (RBC) [Entitic mass] 29.8 pg Normal 24.7-34.3 [facility] Comment on above: Performed By: #### C BC, BMP, MG #### [address] MCHC Auto (RBC) [Mass/Vol]Or dered By: Debbie Alejandro on 05-29-2025 MCHC (RBC) [Mass/Vol] 33.2 g/dL 32.0-35.0 [facility] MCV [Entitic volume] by Auto mated countOrdered By: Debbie Alejandro on 05-29-2025 MCV (RBC) [Entitic vol] 89.5 fL Normal 80-100 [facility] Comment on above: Performed By: #### C BC, BMP, MG #### [facility] [address] Magnesium [Mass/volume] in S melissa or PlasmaOrdered By: Debbie Alejandro on 05-29-2025 Magnesium [Mass/Vol] 1.4 mg/dL Low 1.9-2.7 [facility] Comment on above: Result Comment: PERF ORMED BY: [place] [address] PATHOLOGIST ELECTRICAL ENGINEERING TECHNOLOGIST DONALD MAJOR M.D. Performed By: #### C BC, BMP, MG #### [facility] [address] [place] [address] [place] Monocytes [#/volume] in Bloo d by Automated countOrdered By: Debbie Alejandro on 05-29-2025 Monocytes (Bld) [#/Vol] 0.7 10*3/uL Normal 0.0-0.8 [facility] Comment on above: Performed By: #### C BC, BMP, MG #### [facility] [address] [place] [address] [place] Monocytes/100 leukocytes in Blood by Automated countOrdered By: Debbie Alejandro on 05-29-2025 Monocytes/100 WBC (Bld) 11.1 % Normal . [facility] Comment on above: Performed By: #### C BC, BMP, MG #### [facility] [address] [place] [address] [place] Neutrophils [#/volume] in Bl ood by Automated countOrdered By: Debbie Alejandro on 05-29-2025 Neutrophils (Bld) [#/Vol] 4.2 10*3/uL Normal 1.8-7.7 [facility] Comment on above: Performed By: #### C BC, BMP, MG #### [facility] [address] [place] [address] [place] Neutrophils/100 leukocytes i n Blood by Automated countOrdered By: Debbie Alejandro on 05-29-2025 Neutrophils/100 WBC (Bld) 70.8 % Normal . [facility] Comment on above: Performed By: #### C BC BMP, MG #### [address] No Panel InformationOrdered By: Debbie Alejandro on 05-29-2025 Estimated GFR (CKD-EPI) 37.536 mL/Min [facility] Creatinine Clearance (Chem 52.82 [facility] Nucleated erythrocytes [Pres ence] in Blood by Automated countOrdered By: Debbie Alejandro on 05-29-2025 Nucleated RBC Auto Ql (Bld) 0.1 /100{WBC} 0-0.5 [facility] Platelet mean volume [Entiti c volume] in Blood by Automated countOrdered By: Debbie Alejandro on 05-29-2025 Platelet mean volume (Bld) [Entitic vol] 10.5 fL Normal 6.3-10.7 [facility] Comment on above: Performed By: #### C BC BMP, MG #### [address] Platelets [#/volume] in Bloo d by Automated countOrdered By: Debbie Alejandro on 05-29-2025 Platelets (Bld) [#/Vol] 118 10*3/uL Low 150-450 [facility] Comment on above: Performed By: #### C BC BMP, MG #### [address] Potassium [Moles/volume] in Serum or PlasmaOrdered By: Debbie Alejandro on 05-29-2025 Potassium [Moles/Vol] 5.0 mmol/L Normal 3.5-5.1 [facility] Comment on above: Performed By: #### C BC, BMP, MG #### [address] Serum or plasma anion gap de terminationOrdered By: Debbie Alejandro on 05-29-2025 Anion gap [Moles/Vol] 7.2 mmol/L Normal 6.0-15.0 [facility] Comment on above: Performed By: #### C BC, BMP, MG #### [facility] [address] Sodium [Moles/volume] in Ser um or PlasmaOrdered By: Debbie Alejandro on 05-29-2025 Sodium [Moles/Vol] 139 mmol/L Normal 136-[address] [facility] Comment on above: Performed By: #### C BC, BMP, MG #### [facility] [address] Urea nitrogen [Mass/volume] in Serum or PlasmaOrdered By: Debbie Alejandro on 05-29-2025 Urea nitrogen [Mass/Vol] 53 mg/dL High 7-25 [facility] Comment on above: Performed By: #### C BC, BMP, MG #### [facility] [address] ALL CBC WITH AUTO DIFFon BASOPHILS ABSOLUTE AUTO 0 [facility] Basophils/100 WBC (Bld) 0.3 % 0.2 - 2.0 % [facility] Eosinophils/100 WBC (Bld) 1.9 % 0.9 - 7.0 % [facility] Erythrocyte distribution width (RBC) [Ratio] 15.2 % High 11.0 - 15.0 % [facility] Hematocrit (Bld) [Volume fraction] 42.9 % 36.0 - 48.0 % [facility] Hemoglobin (Bld) [Mass/Vol] 14.4 g/dL 12.0 - 16.0 g/dL [facility] IMMATURE GRANULOCYTES ABS AUTO 0.03 [facility] Immature granulocytes/100 WBC (Bld) 0.3 % 0.0 - 0.5 % [facility] Interpretation and review of laboratory results Abnormal [facility] LYMPHOCYTES ABSOLUTE AUTO 1.7 [facility] Lymphocytes/100 WBC (Bld) 15.2 % Low 20.5 - 60.0 % [facility] MCH (RBC) [Entitic mass] 30.4 pg 26.7 - 34.0 pg [facility] MCHC (RBC) [Mass/Vol] 33.6 g/dL 29.9 - 35.2 g/dL [facility] MCV (RBC) [Entitic vol] 90.7 fL 81.0 - 99.0 fL [facility] MONOCYTES ABSOLUTE AUTO 1 High [facility] Monocytes/100 WBC (Bld) 9.1 % 1.7 - 12.0 % [facility] NEUTROPHILS ABSOLUTE AUTO 8.4 High [facility] Neutrophils/100 WBC (Bld) 73.2 % 43.0 - 75.0 % [facility] Platelet mean volume (Bld) [Entitic vol] 12.3 fL 9.5 - 13.5 fL [facility] TBH EO # 0.2 [facility]T [address] [facility] RBC 4.73 [facility] TB WBC 11.5 High [facility] HbA1c (Bld) [Mass fraction]o n 05-28-2025 Interpretation and review of laboratory results Abnormal [facility] - Hematology and Cell countson 05-28-2025 HbA1c (Bld) [Mass fraction] 6.3 % [facility] Urine Cultureon 05-28-2025 Bacteria identified Cx Nom (U) <9,000 colonies/ml mixed bacterial skin contaminants 2 Days PERFORMED BY: [place] [address] PATHOLOGIST ELECTRICAL ENGINEERING TECHNOLOGIST DONALD MAJOR M.D. [facility] Comment on above: Performed By: #### C UU #### [address] CA ECHO DOPPLER COMPLETEon 0 04-30-2025 [place] [address] Cardiology Report Signed Patient: ALIYA MOORE MR#: [id number] : 1965 Acct:[id number] Age/Sex: 59 / F ADM Date: 04/30/25 Loc: CARD Attending Dr: Marlene Soto M.D. Ordering Physician: Marlene Soto M.D. Date of Service: 04/30/25 Procedure(s): CA echo doppler complete Accession Number(s): [id number] cc: Brea Jj AFTER SCHOOL COORDINATOR; Marlene Soto M.D. Patient Name: ALIYA MOORE MR#: [id number] : 1965 Exam Date: 04/30/2025 Ordering Doctor: DR MARLENE SOTO M.D. ECHOCARDIOGRAM REPORT PROCEDURE: CA ECHO DOPPLER [...] Alfredo Hill M.D. Signed By: 04/30/25 1413 (more content not included)... [facility] Radiology, Radiologist, MD - 04/30/2025 [place] [address] Cardiology Report Signed Patient: ALIYA MOORE MR#: [id number] : 1965 Acct:[id number] Age/Sex: 59 / F ADM Date: 04/30/25 Loc: CARD Attending Dr: Marlene Soto M.D. Ordering Physician: Marlene Soto M.D. Date of Service: 04/30/25 Procedure(s): CA echo doppler complete Accession Number(s): [id number] cc: Brea Jj AFTER SCHOOL COORDINATOR; Marlene Soto M.D. Patient Name: ALIYA MOORE MR#: [id number] : 1965 Exam Date: 04/30/2025 Ordering Doctor: DR MARLENE SOTO M.D. ECHOCARDIOGRAM REPORT PROCEDURE: CA ECHO DOPPLER [...] Jose Alfredo Hill M.D. Signed By: 04/30/25 141 DD/ 11 TD/TT: Location Analyst: [facility] Radiology Study observation (narrative) [facility] CA ECHO DOPPLER COMPLETEOrde red By: Radiologist Radiology on 04-30-2025 [facility] Work Phone: MM TOMOSYNTHESIS SCREENING B Ion 04-17-2025 [place] [address] Mammography Report Signed Patient: ALIYA MOORE MR#: [id number] : 1965 Acct:[id number] Age/Sex: 59 / F ADM Date: 04/17/25 Loc: MAMMO Attending Dr: Brea Jj NP Ordering Physician: Brea Jj NP Results: Date of Service: 04/17/25 Follow Up: Procedure(s): MM tomosynthesis screening BI Accession Number(s): [id number] cc: Brea Jj NP Patient Name: ALIYA MOORE MR#: [id number] : 1965 Exam Date: 04/17/2025 Ordering Doctor: [...] Treatments None Family Cancers None LOCATION: [facility] BREAST COMPOSITION: The breasts are [...] Signed By: 04/17/25 1639 DD/ 1638 TD/TT: Location Analyst: [facility] Radiology, Radiologist, MD - 04/17/2025 [place] [address] Mammography Report Signed Patient: ALIYA MOORE MR#: [id number] : 1965 Acct:[id number] Age/Sex: 59 / F ADM Date: 04/17/25 Loc: MAMMO Attending Dr: Brea Jj NP Ordering Physician: Brea Jj NP Results: Date of Service: 04/17/25 Follow Up: Procedure(s): MM tomosynthesis screening BI Accession Number(s): [id number] cc: Brea Jj NP Patient Name: ALIYA MOORE MR#: [id number] : 1965 Exam Date: 04/17/2025 Ordering Doctor: [...] Treatments None Family Cancers None LOCATION: [facility] BREAST COMPOSITION: The breasts are [...] Signed By: 04/17/25 1639 DD/ 1638 TD/TT: Location Analyst: [facility] Radiology Study observation (narrative) [facility] MM TOMOSYNTHESIS SCREENING B IOrdered By: Radiologist Radiology on 04-17-2025 [facility] Work Phone: Office Visiton 03-28-2025 Follow-up visit [id number] Aliya Moore 1965 F Date Provider Department Center 03/28/2025 271-MARLENE SOTO CRYSTAL [place]iera Family History Problem Relation Age of Onset Coronary artery disease Other Pulmonary embolism Other Deep vein thrombosis Other Family Status - Relation Status Age at Other Level of Service:[address] [place] OFFICE/OUTPATIENT ESTABLISHED MOD MDM 30 MIN Normal [facility] Orders Onlyon 03-27-2025 Orders Only [id number] Aliya Moore 1965 F Date Provider Department Center 03/27/2025 [id number], HISTORICAL CARD Rodríguez Viera Family History Problem Relation Age of Onset Coronary artery disease Other Pulmonary embolism Other Deep vein thrombosis Other Family Status - Relation Status Age at Other Normal [facility] HbA1c (Bld) [Mass fraction]o n 02-25-2025 Interpretation and review of laboratory results Abnormal [facility] - Hematology and Cell countson 02-25-2025 HbA1c (Bld) [Mass fraction] 6.1 % [facility] Ambulatory Visit Summaryon 0 01-14-2025 Ambulatory Visit Summary Ambulatory Visit Summary ALIYA MOORE :1965 Visit Date:01/14/2025 Ambulatory Visit Instructions Your Diagnosis Diarrhea Unintentional weight loss Positive occult stool blood test Your Care Team Attending Physician - Nunu BOOTHE, Suzanna Edouard Primary Care Physician - BREA JJ CNP This Is Your Medications List Contact prescribing physician if questions or concerns albuterol (Ventolin HFA 90 mcg/inh Aerosol-Adpt) albuterol-ipratropium (albuterol-ipratropiu m Inh Debby 3 mL UD) aspirin (Aspirin Low Dose 81 mg oral enteric coated tablet) atorvastatin (atorvastatin 40 mg Tab) busPIRone (busPIRone 15 mg Tab) calcium carbonate (calcium (as carbonate) 600 mg oral tablet) celecoxib (CeleBREX 200 mg Cap) clonazepam (ClonazePAM 0.5 mg Tab) dicyclomine (dicyclomine 20 mg Tab) duloxetine (duloxetine 60 mg oral delayed release capsule) ferrous sulfate (Ferrousal 325 mg oral tablet) fluticasone (Flovent HFA 110 Aerosol) fluticasone nasal (fluticasone Nasal 0.05 mg/inh [place]) formoterol-glycopyrro late (Bevespi Aerosphere 9 mcg-4.8 mcg/inh inhalation aerosol) formoterol-glycopyrro late (Bevespi Aerosphere 9 mcg-4.8 mcg/inh inhalation aerosol) furosemide (furosemide 20 mg Tab) gabapentin (gabapentin 300 mg Cap) hydrochlorothiazide-l isinopril (hydrochlorothiazide- lisinopril 25 mg-20 mg Tab) ondansetron (Zofran ODT 4 mg Tab-Dis) pantoprazole (Pantoprazole [address] Tab) pioglitazone (pioglitazone 15 mg Tab) potassium chloride (Potassium Chloride (Knv-Xwww-Sby 10) 10 mEq oral tablet, extended release) pramipexole (pramipexole 0.5 mg oral tablet) theophylline (theophylline 300 mg ER Tab) Procedures Performed delivery (05/05/1987), delivery (06/20/1984), Cyst, Knee. Discharge Vitals Heart Rate (Peripheral) 94 Respiratory Rate 14 Blood Pressure 135/76 Height 175 cm Height 69 in Weight 116 kg Weight 255.736 lb BMI 37.88 What to do next Scheduled Follow-Up Appointments Tuesday 10:00 AM EDT With: Swapna ANGUIANO, Mariama Chen Where: [facility] You Need to Complete the Following Celiac Disease Comprehensive, Blood, Routine collect, 01/14/25, Order for future visit, Lab Collect, Diarrhea, Print Label By Order Location [place] Gastric Emptying Study, 01/14/25, Routine, Order for Future Visit, Transport Mode: Ambulatory, Reason: Nausea, Diarrhea Unintentional weight loss Positive occult stool blood test, No, pp_set_radiology_subs pecialty, [place] [facility] [place] Medications What How Much When Instructions Unchanged albuterol (Ventolin HFA 90 mcg/ inh Aerosol-Adpt) 1 Puffs Inhalation 4 times a day as needed for for wheezing Contact prescribing physician if questions or concerns Unchanged albuterol-ipratropium (albuterol-ipratropiu m Inh Debby 3 mL UD) 3 Milliliter Inhalation 4 times a day Contact prescribing physician if questions or concerns Unchanged aspirin (Aspirin Low Dose 81 mg oral enteric coated tablet) Contact prescribing physician if questions or concerns Unchanged atorvastatin (atorvastatin 40 mg Tab) By Mouth Every day Contact prescribing physician if questions or concerns Unchanged busPIRone (busPIRone 15 mg Tab) 1 Tablets By Mouth 3 times a day Contact prescribing physician if questions or concerns Unchanged calcium carbonate (calcium (as carbonate) 600 mg oral tablet) By Mouth Every day Contact prescribing physician if questions or concerns Unchanged celecoxib (CeleBREX 200 mg Cap) By Mouth Every day Contact prescribing physician if questions or concerns Unchanged clonazepam (ClonazePAM 0.5 mg Tab) By Mouth 3 times a day Contact prescribing physician if questions or concerns Unchanged dicyclomine (dicyclomine 20 mg Tab) See instructions when needed Contact prescribing physician if questions or concerns Unchanged duloxetine (duloxetine 60 mg oral delayed release capsule) Contact prescribing physician if questions or concerns Unchanged ferrous sulfate (Ferrousal 325 mg oral tablet) 1 Tablets By Mouth Every day Contact prescribing physician if questions or concerns Unchanged fluticasone (Flovent HFA 110 Aerosol) 2 Puffs Inhalation 2 times a day Contact prescribing physician if questions or concerns Unchanged fluticasone nasal (fluticasone Nasal 0.05 mg/ inh [place]) 2 Sprays Nasal Inhalation Every day each nostril Contact prescribing physician if questions or concerns Unchanged formoterol-glycopyrro late (Bevespi Aerosphere 9 mcg-4.8 mcg/ inh inhalation aerosol) Inhalation 2 times a day Contact prescribing physician if questions or concerns Unchanged formoterol-glycopyrro late (Bevespi Aerosphere 9 mcg-4.8 mcg/ inh inhalation aerosol) 2 Puffs Inhalation 2 times a day Contact prescribing physician if questions or concerns Unchanged furosemide (furosemide 20 mg Tab) 1 Tablets By Mouth Every day Contact prescribing physician if questions or concerns Unchanged gabapentin (gabapentin 300 mg Cap) 1 Caps (more content not included)... Normal [facility] Gastroenterology Office/Clin ic Noteon 01-14-2025 Gastroenterology Office/Clinic Note Gastroenterology Office/Clinic Note Chief Complaint Kaity ref for diarrhea and weight loss and occult blood HPI Staff Patient is a(n) 59 year old female who was referred by Анна for diarrhea, weight loss, positive hemoccult. Diarrhea: When did it start: September Constant? Or alternate with normal BM or constipation: diarrhea Associated symptoms: N/V and abdominal cramping Symptoms come and go, usually lasts about 3-5 days Weight loss: How much weight? 16/17 lbs. Fhx of GI cancer? No. Blood thinners? No. GLP-1 agonists? No. CT abd/pel wo 12/20/23 Impression: 1. No evidence of acute abdominal or pelvic process. 2. The stomach is distended with undigested heterogeneous contents which may represent undigested food, however bezoar in stomach may show same picture, please correlate clinically. 3. Gallstones with no evidence of cholecystitis. 4. Colonic diverticulosis with no evidence of diverticulitis. 5. A 3.7 cm right renal hypodensity, probably cyst, however evaluation is limited due to lack of IV contrast. Ultrasound may be recommended on a nonemergent basis to confirm cyst. 6. Bilateral adrenal lipid rich adenomas, 1.2 cm each. HIDA Scan 09/21/19 FINDINGS: LIVER: Normal, prompt and uniform radiotracer uptake and clearing. BILIARY DUCTS: Normal radioisotopic biliary excretion. GALLBLADDER: Normal with no evidence of cystic duct obstruction. INTESTINE: Normal with no evidence of common biliary ductal obstruction. EJECTION FRACTION: 85 % within 60 minutes. (Normal EF > 38%). OTHER: Negative. CONCLUSION: Normal hepatobiliary scan and pharmacologic ejection fraction Colonoscopy and EGD w/ Dr Alvarez 03/31/20 Reports not available at this time Pathological Diagnosis A. Stomach, biopsy: - Gastric mucosa with mucosal erosion and minimal chronic inflammation. - No morphologic evidence of H. pylori identified. B. Random colon, biopsy: - Colonic mucosa with no significant pathologic findings. Labs 12/21/24 Occult Blood: Positive Abnormal E coli Shiga Toxin EIA: Negative Salmonella/Shigella Screen: Negative Campylobacter Culture: Negative C. Difficile PCR: NEGATIVE Labs 12/05/24 WBC: 8.9 RBC: 4.69 Hgb: 14.0 Hct: 42.2 MCV: 90.0 MCH: 29.9 MCHC: 33.2 Red Cell Distribution Width: 14.6 Platelet: 179 MPV: 12.4 Neutrophils %: 78.5 High Lymphocytes %: 10.7 Low Monocytes %: 6.9 Eosinophils %: 3.5 Basophils %: 0.1 Low Immature Granulocytes %Auto: 0.3 Neutrophils Abs: 6.9 High Lymphocytes Abs: 1.0 Low Monocytes Abs: 0.6 Eosinophils Abs: 0.3 Basophils Abs: 0.0 Immature Granulocytes Abs: 0.03 Sodium: 139 Potassium: 3.8 Chloride: 100 Carbon Dioxide: 31.4 Anion Gap: 11.4 Glucose: 133 High Blood Urea Nitrogen: 24.0 High Creatinine: 1.16 High Estimated GFR ( Hilary: 58 Low Estimated GFR (Non- Jackie: 48 Low BUN Creatinine Ratio: 20.7 Calcium: 9.6 Bilirubin Total: 0.5 Aspartate Amino Transferase: 18 Alanine Aminotransferase: 17 Alkaline Phosphatase: 87 Total Protein: 7.5 Albumin Level: 3.2 Low Globulin: 4.3 Albumin Globulin Ratio: 0.7 Amylase: 48 Lipase: 45.0 Free T3: 2.56 TSH: 0.565 History of Present Illness Reviewed HPI collected by staff Review of Systems PHQ Score Initial Depression Screen Score: 0 SCORE All systems reviewed, negative; Except for above Physical Exam Vitals & Measurements HR: 94(Peripheral) RR: 14 BP: 135/76 HT: 69 in HT: 175 cm WT: 116 kg WT: 255.736 lb BMI: 37.88 No acute distress Assessment/Plan 1. Diarrhea (R19.7: Diarrhea, unspecified) She has abdominal pain, vomiting, then diarrhea starts. She will have 6-7 BMs during these episodes She has had 5 episodes since September, lasts 2-5 days Abdominal pain is relieved after BMs Dicyclomine also helps C/o fecal incontinence Taking theophylline, discussed this could be a side effect of the medication Has early satiety Smoker, non drinker Depending on results, consider talking to product safety manager (Dr Russo) about switching medications Counseled on tobacco cessation Labs ordered Schedule Fibroscan to evaluate Schedule Gastric emptying study to evaluate Schedule EGD with random duodenal biopsies to evaluate. Discussed risks such as bleeding, injury and perforation as well as benefits. Patient agreeable. Schedule Colonoscopy with random biopsies and TI intubation to evaluate. Discussed risks such as bleeding, injury and perforation as well as benefits. Patient agreeable. 2. Unintentional weight loss (R63.4: Abnormal weight loss) 3. Positive occult stool blood test (R19.5: Other fecal abnormalities) I, Kezia Jennings, personally scribed for Suzanna Eddy on 01/14/2025 08:18:10. . Documentation recorded by Antonina Jennings, accurately reflects the services I performed and decisions made by me. Suzanna Eddy MD Follow-up No qualifying data (more content not included)... Normal [facility] Comment on above: Result Comment: Elec tronically Signed By: Nunu BOOTHE, Suzanna Edouard\.br\Date and Time Signed: 01/14/25 08:43 EDT\.br\Electronically Co-Signed By: Kezia Jennings MA.br\Date and Time Co-Signed: 01/14/25 08:33 EDT 36on 12-31-2024 36 Patient needs an appt Normal [facility] OCCULT BLOOD*on 12-21-2024 Interpretation and review of laboratory results Abnormal [facility] OCCULT BLOOD Positive Abnormal [facility] 36on 12-10-2024 36 Patient hasn't been seen since 2022 Normal [facility] ALL CBC WITH AUTO DIFFon BASOPHILS ABSOLUTE AUTO 0 N [facility] Basophils/100 WBC (Bld) 0.1 % Low 0.2 - 2.0 % [facility] Eosinophils/100 WBC (Bld) 3.5 % 0.9 - 7.0 % [facility] Erythrocyte distribution width (RBC) [Ratio] 14.6 % 11.0 - 15.0 % [facility] Hematocrit (Bld) [Volume fraction] 42.2 % 36.0 - 48.0 % [facility] Hemoglobin (Bld) [Mass/Vol] 14 g/dL 12.0 - 16.0 g/dL [facility] IMMATURE GRANULOCYTES ABS AUTO 0.03 [facility] Immature granulocytes/100 WBC (Bld) 0.3 % 0.0 - 0.5 % [facility] Interpretation and review of laboratory results Abnormal [facility] LYMPHOCYTES ABSOLUTE AUTO 1 Low [facility] Lymphocytes/100 WBC (Bld) 10.7 % Low 20.5 - 60.0 % [facility] MCH (RBC) [Entitic mass] 29.9 pg 26.7 - 34.0 pg [facility] MCHC (RBC) [Mass/Vol] 33.2 g/dL 29.9 - 35.2 g/dL [facility] MCV (RBC) [Entitic vol] 90 fL 81.0 - 99.0 fL [facility] MONOCYTES ABSOLUTE AUTO 0.6 [facility] Monocytes/100 WBC (Bld) 6.9 % 1.7 - 12.0 % [facility] NEUTROPHILS ABSOLUTE AUTO 6.9 High [facility] Neutrophils/100 WBC (Bld) 78.5 % High 43.0 - 75.0 % [facility] Platelet mean volume (Bld) [Entitic vol] 12.4 fL 9.5 - 13.5 fL [facility] EO # 0.3 [facility] PLT 179 [facility] RBC 4.69 [facility] WBC 8.9 [facility] HbA1c (Bld) [Mass fraction]o n 10-29-2024 Interpretation and review of laboratory results Normal [facility] - Hematology and Cell countson 10-29-2024 HbA1c (Bld) [Mass fraction] 7.7 % [facility] 36on 10-05-2024 36 Patient needs an appointment Normal [facility] CBC w/ Auto Diffon 4 Basophils/100 WBC (Bld) 0.6 % Normal 0.0-2.0 [facility] Comment on above: Performed By: #### 2 [id number] #### [facility] [address] [place] [address] Basophils/Leukocytes Auto (Bld) [Pure # fraction] 0.0 E9/L Normal 0.0-0.2 [facility] Comment on above: Performed By: #### 2 [id number] #### [facility] [address] [place] [address] Eosinophils (Bld) [#/Vol] 0.2 E9/L Normal 0.0-0.5 [facility] Comment on above: Performed By: #### 2 [id number] #### [facility] [address] [place] [address] Eosinophils/100 WBC (Bld) 2.4 % Normal 0.0-8.0 [facility] Comment on above: Performed By: #### 2 [id number] #### [facility] [address] [place] [address] Erythrocyte distribution width (RBC) [Ratio] 15.3 % High 10.9-14.2 [facility] Comment on above: Performed By: #### 2 [id number] #### [facility] [address] [place] [address] Hematocrit (Bld) [Volume fraction] 42.4 % Normal 34.0-46.0 [facility] Comment on above: Performed By: #### 2 [id number] #### [facility] [address] [place] [address] Hemoglobin (Bld) [Mass/Vol] 14.4 g/dL Normal 12.0-16.0 [facility] Comment on above: Performed By: #### 2 [id number] #### [facility] [address] [place] [address] Lymphocytes (Bld) [#/Vol] 1.6 E9/L Normal 1.0-4.0 [facility] Comment on above: Performed By: #### 2 [id number] #### [facility] [address] [place] [address] Lymphocytes/100 WBC (Bld) 20.2 % Normal 14.0-50.0 [facility] Comment on above: Performed By: #### 2 [id number] #### [facility] [address] [place] [address] MCH (RBC) [Entitic mass] 30.3 pg Normal 27.0-34.0 [facility] Comment on above: Performed By: #### 2 [id number] #### [facility] [address] [place] [address] MCHC (RBC) [Mass/Vol] 34.0 g/dL Normal 31.4-36.0 [facility] Comment on above: Performed By: #### 2 [id number] #### [facility] [address] [place] [address] MCV (RBC) [Entitic vol] 89.1 fL Normal 80.0-100.0 F [facility] Comment on above: Performed By: #### 2 [id number] #### [facility] [address] [place] [address] Monocytes (Bld) [#/Vol] 0.5 E9/L Normal 0.2-1.0 F [facility] Comment on above: Performed By: #### 2 [id number] #### [facility] [address] [place] [address] Neutrophils (Bld) [#/Vol] 5.4 E9/L Normal 2.0-7.5 [facility] Comment on above: Performed By: #### 2 [id number] #### [facility] [address] [place] [address] Neutrophils/100 WBC (Bld) 69.8 % Normal 36.0-75.0 [facility] Comment on above: Performed By: #### 2 [id number] #### [facility] [address] [place] [address] Platelet mean volume (Bld) [Entitic vol] 10.8 fL Normal 6.4-10.8 [facility] Comment on above: Performed By: #### 2 [id number] #### [facility] [address] [place] [address] Platelets (Bld) [#/Vol] 157.0 E9/L Normal 150.0-500.0 [facility] Comment on above: Performed By: #### 2 [id number] #### [facility] [address] [place] [address] RBC (Bld) [#/Vol] 4.8 E12/L Normal 4.3-5.9 [facility] Comment on above: Performed By: #### 2 [id number] #### [facility] [address] [place] [address] WBC corrected for nucl RBC Auto (Bld) [#/Vol] 7.8 E9/L Normal 4.0-11.0 [facility] Comment on above: Performed By: #### 2 [id number] #### [facility] [address] [place] [address] CHEMISTRYOrdered By: SYSTEM SYSTEM on 07-16-2024 Ferritin [...] 07-16-2024 Ferritin [Mass/Vol] 76 ng/mL Normal 11-307 [facility] Comment on above: Performed By: #### 2 964095 #### [facility] [address] [place] [address] HEMATOLOGYOrdered By: SYSTEM SYSTEM on 07-16-2024 Basophils/100 [...] Heme Platelets (Bld) [#/Vol] 157.0 E9/L Normal 150. 0 - 500.0 E9/L Remisol Heme RBC (Bld) [#/Vol] 4.8 E12/L Normal 4.3 - 5.9 E12/L Remisol Heme WBC corrected for nucl RBC Auto (Bld) [#/Vol] 7.8 E9/L Normal 4.0 - 11.0 E9/L Remisol Heme Ironon 07-16-2024 Iron [Mass/Vol] 74 microgram/dL Normal 35-153 [facility] Comment on above: Performed By: #### 2 027022 #### [facility] [address] [place] [address] Iron Saturationon 07-16-2024 Iron binding capacity [Mass/Vol] 329 microgram/dL Normal 250-400 [facility] Comment on above: Performed By: #### 2 928419 #### [facility] [address] [place] [address] Iron saturation [Mass fraction] 22 % Normal 20-50 [facility] Comment on above: Performed By: #### 2 149934 #### [facility] [address] [place] [address] Transferrinon 07-16-2024 Transferrin [Mass/Vol] 235 mg/dL Normal 200-370 [facility] Comment on above: Performed By: #### 2 404605 #### [facility] [address] [place] [address] Methylmalonic Acidon 024 Methylmalonate [Moles/Vol] 301 nmol/L Invalid Interpretation Code 0-378 [facility] Comment on above: Result Comment: This test was developed and its performance characteristics determined by [employer]. It has not been cleared or approved by the Food and Drug Administration. Performed at: [address] [id number] MD Tony Laird Performed By: #### 1 4262725, 0194098, 4390721, 1414259, 2380844, 2600056, 9097276 ####[facility] [address] [place] [address] Oncology Progress Noteon Oncology Progress Note Chief Complaint PE Pt states she has had a couple visits to hosp. Poss Gallbladder. Pt just has ques on how blood work results are. Diagnoses 1. History of pulmonary embolism (Z86.711: Personal history of pulmonary embolism) Oncological History/ROS/PE/Assess ment and Plan Aliya was referred to our hematology office at [facility] for Thrombophilia work up and decision about duration of anticoagulation for the acute PE diagnosed on . She is a 57-year-old female cigarette smoker with history of hypertension, spz-eojxvtk-ewrvpajhx diabetes mellitus, obesity, chronic hypoxic respiratory failure on 3 L home oxygen, and depression who presented on 06/16/23 to [facility] with complaints of right-sided chest pain [...] cramping a lot. has had colonoscopy at [facility] Physical Examination General: alert, no acute distress [...] Contact Information Swapna ANGUIANO, Mariama Chen, ONC [facility] [address] [place], [place] [address]os[place] [phone] Additional Instructions: iron studies, b12, folate, mm [...] Treatmenton 12-29 Consent for Treatment [id number]#1 .00TIFF Normal [facility] Consent for Treatment [id number] 403 [id number]#1 .00TIFF Normal [facility] Ferritinon 01-16-2024 Ferritin [Mass/Vol] 63 ng/mL Normal 11-307 [facility] Comment on above: Performed By: #### 1 6633923, 8979648, 8664783, 5022758, 9296397, 1755892, 6648392 ####[facility] [address] [place] [address] Folateon 01-16-2024 Folate [Mass/Vol] 15.3 ng/mL Normal >=6.7 [facility] Comment on above: Performed By: #### 1 2440786, 6761742, 9676730, 0833079, 6414980, 2942228, 6242816 ####[facility] [address] [place] [address] Ironon 01-16-2024 Iron [Mass/Vol] 63 microgram/dL Normal 35-153 [facility] Comment on above: Performed By: #### 1 3612740, 4518372, 0489886, 0277615, 5164093, 6253397, 2159964 ####[facility] [address] [place] [address] Iron Saturationon 01-16-2024 Iron binding capacity [Mass/Vol] 365 microgram/dL Normal 250-400 [facility] Comment on above: Performed By: #### 1 8787957, 3043931, 2138513, 4435718, 4288197, 7267096, 8342542 ####[address] [address] Iron saturation [Mass fraction] 17 % Low 20-50 [facility] Comment on above: Performed By: #### 1 5230592, 3981791, 0944688, 4697619, 4973466, 9754243, 2344360 ####[address] [address] Transferrinon 01-16-2024 Transferrin [Mass/Vol] 261 mg/dL Normal 200-370 [facility] Comment on above: Performed By: #### 1 9453170, 1734150, 7692465, 6529846, 7003572, 2857502, 4774708 ####[facility] [address] [place] [address] Vit B12on 01-16-2024 Cobalamin (Vitamin B12) [Mass/Vol] 420 pg/mL Normal 50-1500 [facility] Comment on above: Performed By: #### 1 6804212, 7017495, 3945619, 0942453, 5189781, 9576933, 7523374 ####[facility] [address] [place] [address] CBC w/ Auto Diffon 4 Basophils/100 WBC (Bld) 0.6 % Normal 0.0-2.0 [facility] Comment on above: Performed By: #### 1 3096144, 4414834, 3096530, 6628149 ####[address] [address] Basophils/Leukocytes Auto (Bld) [Pure # fraction] 0.0 E9/L Normal 0.0-0.2 [facility] Comment on above: Performed By: #### 1 2518971, 3275027, 9450620, 5563233 ####[address] [address] Eosinophils (Bld) [#/Vol] 0.2 E9/L Normal 0.0-0.5 [facility] Comment on above: Performed By: #### 1 1528017, 8819709, 1425779, 2416105 ####[place] [address] Eosinophils/100 WBC (Bld) 3.0 % Normal 0.0-8.0 [facility] Comment on above: Performed By: #### 1 5563174, 4957933, 0219107, 5837648 ####[address] [address] Erythrocyte distribution width (RBC) [Ratio] 15.7 % High 10.9-14.2 [facility] Comment on above: Performed By: #### 1 1018323, 6281437, 3194290, 9774730 ####[place] [address] Hematocrit (Bld) [Volume fraction] 36.9 % Normal 34.0-46.0 [facility] Comment on above: Performed By: #### 1 7915985, 6475188, 1650678, 3583491 ####[address] [address] Hemoglobin (Bld) [Mass/Vol] 12.4 g/dL Normal 12.0-16.0 [facility] Comment on above: Performed By: #### 1 4307368, 2673385, 7121798, 1162351 ####[address] [address] Lymphocytes (Bld) [#/Vol] 1.4 E9/L Normal 1.0-4.0 [facility] Comment on above: Performed By: #### 1 5721602, 7079711, 0398627, 6686165 ####[address] [address] Lymphocytes/100 WBC (Bld) 20.7 % Normal 14.0-50.0 [facility] Comment on above: Performed By: #### 1 3145908, 0710629, 5957209, 5444031 ####[place] [address] MCH (RBC) [Entitic mass] 29.5 pg Normal 27.0-34.0 [facility] Comment on above: Performed By: #### 1 6355475, 6529900, 6059543, 3084991 ####[address] [address] MCHC (RBC) [Mass/Vol] 33.6 g/dL Normal 31.4-36.0 [facility] Comment on above: Performed By: #### 1 4264015, 3995881, 6435345, 8937587 ####[address] [address] MCV (RBC) [Entitic vol] 87.9 fL Normal 80.0-100.0 [facility] Comment on above: Performed By: #### 1 2139312, 8112198, 9661176, 5996657 ####[address] [address] Monocytes (Bld) [#/Vol] 0.6 E9/L Normal 0.2-1.0 [facility] Comment on above: Performed By: #### 1 7215237, 2053750, 2282702, 0039903 ####[place] [address] Neutrophils (Bld) [#/Vol] 4.5 E9/L Normal 2.0-7.5 [facility] Comment on above: Performed By: #### 1 2942523, 7043943, 1162040, 2557058 ####[facility] [address] [place] [address] Neutrophils/100 WBC (Bld) 66.7 % Normal 36.0-75.0 [facility] Comment on above: Performed By: #### 1 4066202, 7574031, 1231905, 2154614 ####[place] [address] [place] [address] Platelet mean volume (Bld) [Entitic vol] 10.3 fL Normal 6.4-10.8 [facility] Comment on above: Performed By: #### 1 7945221, 0655660, 6712077, 3219097 ####[address] [address] Platelets (Bld) [#/Vol] 196.0 E9/L Normal 150.0-500.0 [facility] Comment on above: Performed By: #### 1 7270892, 1287874, 5504758, 3287950 ####[address] [address] RBC (Bld) [#/Vol] 4.2 E12/L Low 4.3-5.9 [facility] Comment on above: Performed By: #### 1 8805630, 6278312, 6908146, 3891171 ####[place] [address] [place] [address] WBC corrected for nucl RBC Auto (Bld) [#/Vol] 6.8 E9/L Normal 4.0-11.0 [facility] Comment on above: Performed By: #### 1 2943094, 7349892, 9140830, 0211469 ####[place] [address] [place] [address] CHEMISTRYOrdered By: SYSTEM SYSTEM on 03-11-2024 Albumin [Mass/Vol] 4.1 g/dL Normal 3.3 - [...] Comment on above: Performed By: #### 1 7721878, 5772308, 0262662, 6799319 ####[place] [address] [place] [address] Albumin/Globulin (S) [Mass conc ratio] 1.2 Normal 1.1-2.2 [facility] Comment on above: Performed By: #### 1 2936264, 4165761, 5349839, 2465011 ####[address] [address] ALP [Catalytic activity/Vol] 61 Int._Unit/L Normal 21-98 [facility] Comment on above: Performed By: #### 1 4603784, 0671004, 2160217, 0096064 ####[address] [address] ALT No additional P-5'-P [Catalytic activity/Vol] 17 Int._Unit/L Normal 6-46 [facility] Comment on above: Performed By: #### 1 6091706, 0751164, 7656491, 1837421 ####[address] [address] Anion gap [Moles/Vol] 12 mmol/L Normal 6-16 [facility] Comment on above: Performed By: #### 1 3378117, 1047101, 6580921, 8219134 ####[address] [address] AST [Catalytic activity/Vol] 18 Int._Unit/L Normal 5-43 [facility] Comment on above: Performed By: #### 1 3260816, 7499225, 3797333, 4380363 ####[place] [address] [place] [address] Bilirubin [Mass/Vol] 0.4 mg/dL Normal 0.0-1.1 [facility] Comment on above: Performed By: #### 1 4657844, 8402805, 9840523, 4276563 ####[facility] [address] [place] [address] Calcium [Mass/Vol] 9.8 mg/dL Normal 8.9-11.1 [facility] Comment on above: Performed By: #### 1 9468474, 6961009, 2782147, 6440548 ####[facility] [address] [place] [address] Chloride [Moles/Vol] 101 mmol/L Normal 101-111 [facility] Comment on above: Performed By: #### 1 2316847, 4277704, 2959688, 5828248 ####[facility] [address] [place] [address] CO2 [Moles/Vol] 28 mmol/L Normal 21-31 [facility] Comment on above: Performed By: #### 1 7418157, 0329648, 9768220, 6012914 ####[facility] [address] [place] [address] Creatinine [Mass/Vol] 1.0 mg/dL Normal 0.5-1.3 [facility] Comment on above: Performed By: #### 1 7640877, 3934732, 1699091, 5349079 ####[facility] [address] [facility] [place] [address] Globulin (S) [Mass/Vol] 3.4 g/dL Normal 1.4-4.0 [facility] Comment on above: Performed By: #### 1 8789292, 3827828, 1445318, 2655901 ####[facility] [address] [place] [address] Glucose [Mass/Vol] 98 mg/dL Normal 55-199 [facility] Comment on above: Performed By: #### 1 6709348, 2424891, 4518200, 2254204 ####[facility] [address] [place] [address] Potassium [Moles/Vol] 4.3 mmol/L Normal 3.5-5.3 [facility] Comment on above: Performed By: #### 1 0138651, 8836476, 6324607, 2185132 ####[facility] [address] [place] [address] Protein [Mass/Vol] 7.5 g/dL Normal 6.0-7.8 [facility] Comment on above: Performed By: #### 1 6886683, 6011044, 6024769, 7650766 ####[facility] [address] [place] [address] Sodium [Moles/Vol] 137 mmol/L Normal 135-145 [facility] Comment on above: Performed By: #### 1 8709812, 0487643, 7814892, 8622598 ####[facility] [address] [place] [address] Urea nitrogen [Mass/Vol] 21 mg/dL Normal 5-21 [facility] Comment on above: Performed By: #### 1 3760748, 8438326, 1413539, 7964248 ####[facility] [address] [place] [address] Urea nitrogen/Creatinine [Mass ratio] 21 No Units High 10-20 [facility] Comment on above: Performed By: #### 1 7144664, 4168593, 4250888, 0533055 ####[facility] [address] [place] [address] COAGULATIONOrdered By: Catina Miles on 01-09-2024 Fibrin D-dimer FEU (PPP) [Mass/Vol] 404 ng/mL FEU Normal 215 - 500 ng/mL FEU [facility] Comment on above: Interpretive Data: [...] Treatmenton 12-29 Consent for Treatment [id number] 403 [id number]#1 .00TIFF Normal [facility] D-Dimeron 01-09-2024 Fibrin D-dimer FEU (PPP) [Mass/Vol] 404 [id number] Normal 215-500 [facility] Comment on [...] infections Liver cirrhosis Performed By: #### 1 8766172, 7017709, 7165221, 1407865 ####[facility] [address] [place] [address] HEMATOLOGYOrdered By: SYSTEM SYSTEM on 01-09-2024 Basophils/100 [...] Heme Platelets (Bld) [#/Vol] 196.0 E9/L Normal 150. 0 - 500.0 E9/L Remisol Heme RBC (Bld) [#/Vol] 4.2 E12/L Low 4.3 - 5.9 E12/L Remisol Heme WBC corrected for nucl RBC Auto (Bld) [#/Vol] 6.8 E9/L Normal 4.0 - 11.0 E9/L Remisol Heme eGFRon 01-09-2024 eGFR 65 mL/min/1.73 m2 Normal >=59 [facility] Comment on above: Order Comment: Order added by Discern Expert. Performed By: #### 1 3564084, 2423616, 0734762, 0958631 ####[facility] [address] [place] [address] CT Abdomen/Pelvis w/ Contras ton 11-24-2023 CT [...] Vincenzo Colvin DO Transcribed by: NOHEMY Technologist: [facility] Report IMPRESSION: NO ACUTE ABDOMINOPELVIC PROCESS. [...] Colvin DO Transcribed by: NOHEMY Technologist: SRF Technical Comments GFR (mL/min/1/73m2) 74 Contrast: Isovue 300 Contrast amount in ml's: 100 Report last revised on 11/24/2023 14:25 EST by Vincenzo Colvin DO Normal [facility] Auto Diffon 09-25-2023 Basophils/100 WBC (Bld) 0.6 % Normal 0.0-2.0 [facility] Comment on above: Order Comment: Order Added by Discern Expert. Performed By: #### 2 229799, 8303871, 2010905, 2459984, 01525624, 0079401 ####[facility] [address] [place] [address] Basophils/Leukocytes Auto (Bld) [Pure # fraction] 0.1 E9/L Normal 0.0-0.2 [facility] Comment on above: Order Comment: Order Added by Discern Expert. Performed By: #### 2 490854, 3700611, 8353850, 1801002, 27962999, 8957564 ####[address] [address] Eosinophils/100 WBC (Bld) 1.5 % Normal 0.0-8.0 [facility] Comment on above: Order Comment: Order Added by Discern Expert. Performed By: #### 2 437381, 2573809, 3951388, 5514421, 56408432, 9177869 ####[address] [address] Eosinophils/Leukocytes Auto (Bld) [Pure # fraction] 0.1 E9/L Normal 0.0-0.5 [facility] Comment on above: Order Comment: Order Added by Discern Expert. Performed By: #### 2 184645, 0147869, 2302203, 3882783, 91537540, 2340414 ####[address] [address] Lymphocytes/100 WBC (Bld) 15.3 % Normal 14.0-50.0 [facility] Comment on above: Order Comment: Order Added by Discern Expert. Performed By: #### 2 480479, 8283938, 4487047, 6275438, 84317820, 4808338 ####[address] [address] Lymphocytes/Leukocytes Auto (Bld) [Pure # fraction] 1.5 E9/L Normal 1.0-4.0 [facility] Comment on above: Order Comment: Order Added by Discern Expert. Performed By: #### 2 182172, 7982670, 8998176, 5013983, 25097739, 5188539 ####[address] [address] Monocytes/100 WBC (Bld) 7.4 % Normal 4.0-14.0 [facility] Comment on above: Order Comment: Order Added by Discern Expert. Performed By: #### 2 755428, 2749441, 8016898, 9863801, 97105005, 5516204 ####[address] [place] [address] Monocytes/Leukocytes Auto (Bld) [Pure # fraction] 0.7 E9/L Normal 0.2-1.0 [facility] Comment on above: Order Comment: Order Added by Discern Expert. Performed By: #### 2 487910, 6001359, 3829641, 4672219, 84634693, 1741293 ####[place] [address] [place] [address] Neutrophils/100 WBC (Bld) 75.2 % High 36.0-75.0 [facility] Comment on above: Order Comment: Order Added by Discern Expert. Performed By: #### 2 374788, 2174426, 4168421, 2832717, 97846401, 6756504 ####[facility] [address] [place] [address] Neutrophils/Leukocytes Auto (Bld) [Pure # fraction] 7.1 E9/L Normal 2.0-7.5 [facility] Comment on above: Order Comment: Order Added by Discern Expert. Performed By: #### 2 952474, 5087463, 3590520, 0827828, 86392563, 1963613 ####[facility] [address] [place] [address] BMPon 09-25-2023 Creatinine [Mass/Vol] 0.9 mg/dL Normal 0.5-1.3 [facility] Comment on above: Performed By: #### 2 687993, 2161567, 5415792, 7248596, 16305111, 6374710 ####[facility] [address] [place] [address] Urea nitrogen [Mass/Vol] 20 mg/dL Normal 5-21 [facility] Comment on above: Performed By: #### 2 486107, 1581122, 2424656, 4826096, 93490466, 5345004 ####[facility] [address] [place] [address] Urea nitrogen/Creatinine [Mass ratio] 22 No Units High 10-20 [facility] Comment on above: Performed By: #### 2 474223, 0319905, 8204644, 0411365, 45831525, 7703824 ####[facility] [address] [place] [address] Anion gap [Moles/Vol] 10 mmol/L Normal 6-16 [facility] Comment on above: Performed By: #### 2 511370, 2552632, 0707446, 4847330, 71832100, 7247683 ####[facility] [address] [place] [address] Calcium [Mass/Vol] 10.4 mg/dL Normal 8.9-11.1 [facility] Comment on above: Performed By: #### 2 790253, 3880273, 1803608, 9862175, 21755223, 7490179 ####[facility] [address] [facility] [place] [address] Chloride [Moles/Vol] 101 mmol/L Normal 101-111 [facility] Comment on above: Performed By: #### 2 978548, 0265654, 0361106, 9538622, 66478402, 6261720 ####[facility] [address] [place] [address] CO2 [Moles/Vol] 27 mmol/L Normal 21-31 [facility] Comment on above: Performed By: #### 2 463954, 4657017, 5613395, 5327874, 13465546, 5301448 ####[facility] [address] [place] [address] Glucose [Mass/Vol] 155 mg/dL Normal 55-199 [facility] Comment on above: Result Comment: If t his glucose result represents a fasting glucose, interpretation should refer to the following reference range: 55-99 mg/dL Performed By: #### 2 509591, 2292719, 9525264, 8108362, 42224968, 0066085 ####[facility] [address] [facility] [place] [address] Potassium [Moles/Vol] 4.0 mmol/L Normal 3.5-5.3 [facility] Comment on above: Performed By: #### 2 027363, 2656175, 1511548, 2391105, 73157761, 0620631 ####[facility] [address] [place] [address] Sodium [Moles/Vol] 134 mmol/L Low 135-145 [facility] Comment on above: Performed By: #### 2 734542, 0639597, 8351793, 8865945, 61598262, 3043623 ####[address] [address] CBC w/ Auto Diffon 3 Erythrocyte distribution width (RBC) [Ratio] 15.3 % High 10.9-14.2 [facility] Comment on above: Performed By: #### 2 518649, 6562791, 4087214, 8735910, 85004951, 6687521 ####[place] [address] Hematocrit (Bld) [Volume fraction] 38.4 % Normal 34.0-46.0 [facility] Comment on above: Performed By: #### 2 176816, 9657450, 5193634, 0129371, 40963687, 9828901 ####[address] [address] Hemoglobin (Bld) [Mass/Vol] 13.0 g/dL Normal 12.0-16.0 [facility] Comment on above: Performed By: #### 2 605317, 8196951, 6929919, 0873509, 03527609, 2162200 ####[address] [address] MCH (RBC) [Entitic mass] 29.4 pg Normal 27.0-34.0 [facility] Comment on above: Performed By: #### 2 915634, 7719621, 1867173, 8164507, 64122377, 2368847 ####[address] [address] MCHC (RBC) [Mass/Vol] 33.9 g/dL Normal 31.4-36.0 [facility] Comment on above: Performed By: #### 2 603471, 8828521, 3184765, 7521766, 80237664, 8204206 ####[place] [address] [place] [address] MCV (RBC) [Entitic vol] 86.6 fL Normal 80.0-100.0 [facility] Comment on above: Performed By: #### 2 913036, 1449961, 7071422, 0070914, 95463345, 2116870 ####[place] [address] Platelet mean volume (Bld) [Entitic vol] 9.5 fL Normal 6.4-10.8 [facility] Comment on above: Performed By: #### 2 564834, 2876131, 5024795, 8840943, 00474025, 4697313 ####[place] [address] Platelets (Bld) [#/Vol] 207.0 E9/L Normal 150.0-500.0 [facility] Comment on above: Performed By: #### 2 383257, 9466896, 5961774, 2258496, 41833783, 7438153 ####[place] [address] RBC (Bld) [#/Vol] 4.4 E12/L Normal 4.3-5.9 [facility] Comment on above: Performed By: #### 2 550557, 2116674, 9238922, 8074114, 22106625, 4635618 ####[place] [address] WBC corrected for nucl RBC Auto (Bld) [#/Vol] 9.5 E9/L Normal 4.0-11.0 [facility] Comment on above: Performed By: #### 2 783704, 7445599, 7865135, 6286009, 40294841, 3555453 ####[facility] [address] [place] [address] CHEMISTRYOrdered By: SYSTEM SYSTEM on 09-25-2023 Albumin [...] 74 mL/min/1.73 m2 Normal >=59mL/min/1 .73 m2 [facility] Comment on above: Interpretive Data: [...] Treatmenton 09-01 Consent for Treatment [id number]#1 .00TIFF Normal [facility] Discharge Instructionson Discharge Instructions [id number]# 1.00TIFF Normal [facility] ED Clinical Summaryon 2022 ED Clinical Summary [place] [address] ED Clinical Summary Person Information Name: ALIYA MOORE [place] Age: 57 Years : 1965 Sex: Female Language: Indian PCP: BREA JJ CNP Marital Status: Visit [...] 09/25/2023 21:57:44 09/25/2023 21:57:44 09/25/2023 21:57:44 ADDRESS: [address] [place] [address] [address] [facility] [id number] PHYS DOC NOTES: MEDICAL INFORMATION: Prescriptions Given: [facility], [address] [place], [place] [id number], [phone] dicyclomine (Bentyl 10 mg Cap) 1 Capsules [...] day. fluticasone nasal (fluticasone Nasal 0.05 mg/inh [place]) 2 Sprays Nasal Inhalation every day. each [...] Mouth every day. potassium chloride (Potassium Chloride (Qrl-Xkjn-Lsb 10) 10 mEq oral tablet, extended release) pramipexole (pramipexole 0.5 mg oral tablet) 1 Tablets By Mouth 3 times a day. theophylline (theophylline 300 mg ER Tab) 1 Tablets By Mouth every 12 hours. trazodone (traZODONE 50 mg Tab) 1 Tablets By Mouth once a day (at bedtime). PATIENT EDUCATION INFORMATION: Instructions: Cholelithiasis Follow up: With: Address: When: [facility] [address] [place] [address] 3, [address] Floor, [address] [place] [phone] Business (1) In 3 days 09/28/2023 With: Address: When: BREA JJ [address] [place], [place] [phone] Business (1) In 3 days DIAGNOSIS: AP (abdominal pain); Cholelithiasis; N&V (nausea and vomiting) Normal [facility] ED Note-Physicianon 09-25-20 23 ED Note-Physician Basic [...] and Complexity of Problems Differential Diagnosis: [] [facility] Data External documents reviewed: N/A My [...] day(s), # 28 cap(s), Refills(s) 0, Pharmacy: [facility], 175, cm, 09/25/23 18:25:00 EST, Height/Length [...] q8hr, # 12 tab(s), Refills(s) 0, Pharmacy: [facility], 175, cm, 09/25/23 18:25:00 EST, Height/Length [...] Clinic In 3 days 09/28/2023 EST [address] [facility] 3, [address] Floor, [address] [place] [phone] Business (1) Additional Instructions: BREA JJ In 3 days [address] [place] [address] [phone] Business (1) Additional Instructions: Patient Education Cholelithiasis [...] ED Patient Summaryon 023 ED Patient Summary [place] [id number] Patient Discharge Instructions Person Information Name: ALIYA MOORE Age: 57 Years Arrival Date: 09/25/2023 18:09:44 Discharge Diagnosis: AP (abdominal pain); Cholelithiasis; N&V (nausea and vomiting) Primary Care Physician: BREA JJ CNP Provider Information Primary Provider: Moses Fischer DO Advanced Gas Examiner:None The exam and treatment you received in the Emergency Department were for an urgent problem and are not intended as complete care. It is important that you follow up with a doctor, nurse practitioner, or physician?s hardware sales assistant for ongoing care. If your symptoms [...] Instructions: With: Address: When: [facility] [address] [facility] [address] Floor, [address] [place] [address] [phone] Business (1) In 3 days 09/28/2023 With: Address: When: BREA JJ [address], [place] [address] [phone] Business (1) In 3 days In the event that this physician does not participate in your insurance network, please consult with your insurance company to find a nearby participating provider. Patient Education Materials: Cholelithiasis A MESSAGE TO ALL PATIENTS REGARDING OPIOIDS PRESCRIPTION OPIOIDS: WHAT YOU NEED TO KNOW Prescription opioids can be used to help relieve fcdabwht-hw-pqhyvr pain and are often prescribed following a [...] 0.6 % Normal 0.0 - 2.0 % [facility] HemeAutoSS Basophils/Leukocytes Auto (Bld) [Pure # fraction] 0.1 E9/L Normal 0.0 - 0.2 E9/L [facility] Eosinophils/100 WBC (Bld) 1.5 % Normal [...] HemeAutoSS Platelets (Bld) [#/Vol] 207.0 E9/L Normal 150. 0 - 500.0 E9/L [facility] HemeAutoSS RBC (Bld) [#/Vol] 4.4 E12/L Normal 4.3 - 5.9 E12/L [facility] HemeAuto[facility] WBC corrected for nucl RBC Auto (Bld) [#/Vol] 9.5 E9/L Normal 4.0 - 11.0 E9/L [facility] Hep Func Panelon 09-25-2023 Albumin [Mass/Vol] 3.9 g/dL Normal 3.3-5.0 [facility] Comment on above: Performed By: #### 2 605665, 0232486, 2850375, 8354773, 75596681, 5813603 ####[facility] [address] [place] [address] Albumin/Globulin (S) [Mass conc ratio] 1.0 Low 1.1-2.2 [facility] Comment on above: Performed By: #### 2 400194, 7129654, 4093320, 5481897, 76772772, 9529511 ####[facility] [address] [place] [address] ALP [Catalytic activity/Vol] 66 Int._Unit/L Normal 21-98 [facility] Comment on above: Performed By: #### 2 277650, 9249598, 1657001, 1559245, 12246651, 6680153 ####[facility] [address] [place] [address] ALT No additional P-5'-P [Catalytic activity/Vol] 25 Int._Unit/L Normal 6-46 [facility] Comment on above: Performed By: #### 2 277593, 0677470, 7326729, 3583062, 44834275, 6861434 ####[facility] [address] [place] [address] AST [Catalytic activity/Vol] 25 Int._Unit/L Normal 5-43 [facility] Comment on above: Performed By: #### 2 155381, 2982532, 5059129, 6187220, 39084101, 0216260 ####[facility] [address] [place] [address] Bilirubin [Mass/Vol] 0.2 mg/dL Normal 0.0-1.1 [facility] Comment on above: Performed By: #### 2 375639, 3019684, 5807912, 7469303, 63135224, 4018500 ####[facility] [address] [place] [address] Bilirubin.direct [Mass/Vol] 0.1 mg/dL Normal 0.1-0.4 [facility] Comment on above: Performed By: #### 2 602147, 0150371, 1056731, 7073681, 18121162, 4227287 ####[address] [address] Bilirubin.indirect [Mass or moles/Vol] 0.1 mg/dL Normal 0.1-0.9 [facility] Comment on above: Performed By: #### 2 661533, 9786871, 8182499, 0944653, 16179504, 3051331 ####[facility] [address] [place] [address] Globulin (S) [Mass/Vol] 4.0 g/dL Normal 1.4-4.0 [facility] Comment on above: Performed By: #### 2 120319, 2798615, 4709180, 5320772, 36429448, 7148356 ####[place] [address] [place] [address] Protein [Mass/Vol] 7.9 g/dL High 6.0-7.8 [facility] Comment on above: Performed By: #### 2 653074, 6666236, 6702981, 0409269, 61044137, 6898330 ####[place] [address] [place] [address] Lipase Levelon 09-25-2023 Lipase [Catalytic activity/Vol] 39 U/L Normal 13-58 [facility] Comment on above: Performed By: #### 2 812076, 7787479, 8159113, 6318073, 92990942, 6215360 ####[facility] [address] [place] [address] Monitor Recordon 09-25-2023 Monitor Record [id number]# 1.00TIFF Normal [facility] RAD - Preliminary Cat Scan R eporton 09-25-2023 RAD - Preliminary Cat Scan Report [id number]# 1.00TIFF Normal [facility] UA With Cult Reflexon 2022 Bilirubin Ql (U) Negative Normal Negative [facility] Comment on above: Performed By: #### 1 8904324 ####[address] [address] Clarity (U) CLEAR Normal Clear [facility] Comment on above: Performed By: #### 1 0163658 ####[address] [address] Color (U) YELLOW Normal Yellow [facility] Comment on above: Performed By: #### 1 5244306 ####[place] [address] [place] [address] Epithelial cells.squamous LM.HPF (Urine sed) [#/Area] 0-2 Normal 0-2 [facility] Comment on above: Performed By: #### 1 8937248 ####[facility] [address] [place] [address] Glucose Test strip (U) [Mass/Vol] Negative Normal Negative [facility] Comment on above: Performed By: #### 1 1509035 ####[facility] [address] [place] [address] Hemoglobin Ql (U) Negative Normal Negative [facility] Comment on above: Performed By: #### 1 6995214 ####[facility] [address] [place] [address] Ketones (U) [Mass/Vol] Negative Normal Negative [facility] Comment on above: Performed By: #### 1 1448027 ####[address] [place] [address] Augusta.plasma/Augusta. RBC (Bld) [Mass ratio] 0-3 Normal 0-3 [facility] Comment on above: Performed By: #### 1 9101869 ####[address] [address] Nitrite Ql (U) Negative Normal Negative [facility] Comment on above: Performed By: #### 1 7279396 ####[place] [address] pH (U) 6.5 [pH] Invalid Interpretation Code 5.0-9.0 [facility] Comment on above: Performed By: #### 1 3198985 ####[place] [address] Protein (U) [Mass/Vol] Negative Normal Negative [facility] Comment on above: Performed By: #### 1 8519064 ####[place] [address] Specific gravity (U) [Rel density] <=1.005 Invalid Interpretation Code 1.005-1.030 [facility] Comment on above: Performed By: #### 1 5328923 ####[place] [address]57 Type of Urine collection method Clean Catch Normal [facility] Comment on above: Performed By: #### 1 0958723 ####[place] [address]57 Urobilinogen Qn (U) 0.2 {Nayla'U}/dL Normal 0.0-1.0 [facility] Comment on above: Performed By: #### 1 4358018 ####[address] [address] WBC Auto Ql (U) Negative Normal Negative [facility] Comment on above: Performed By: #### 1 7022473 ####[address] [address] WBC LM.HPF (Urine sed) [#/Area] 0-5 Normal 0-5 [facility] Comment on above: Performed By: #### 1 3944493 ####[facility] [address] [place] [address] URINALYSISOrdered By: Tanya Nathan on 09-25-2023 Bilirubin [...] PM) Normal Negative [facility] UA Auto SS Augusta.plasma/[place]. RBC (Bld) [Mass ratio] 0-3 /HPF Normal 0-3/HPF [facility] UA A uto SS Nitrite Ql (U) Negative (09/25/23 9:53 [...] [facility] UA Auto SS Urobilinogen Qn (U) 0.2732450 {Nayla'U}/dL Normal 0.0 - 1.0 EU/dL [facility] UA Auto SS WBC Auto Ql (U) Negative (09/25/23 9:53 PM) Normal Negative [facility] UA Auto SS WBC LM.HPF (Urine sed) [#/Area] 0-5 /HPF Normal 0-5/HPF [facility] UA Auto SS eGFRon 09-25-2023 GFR/1.73 sq M.predicted among non-blacks MDRD (S/P/Bld) [Vol rate/Area] 74 mL/min/1.73 m2 Normal >=59 [facility] Comment on above: Order Comment: Order added by Discern Expert. Result Comment: Aids Nurse nita kidney disease could be indicated at eGFR's of less than 60 mL/min/1.73m2. Kidney failure is indicated at less than 15 mL/min/1.73m2. Performed By: #### 2 045284, 1241331, 2368004, 0211784, 17927712, 6967195 ####[facility] [address] [place] [address] Auto Diffon 09-08-2023 Basophils/100 WBC (Bld) 0.2 % Normal 0.0-2.0 [facility] Comment on above: Order Comment: Order Added by Discern Expert. Performed By: #### 2 892780, 81910274, 0253415, 1759015, 43258628, 48920764, 24425243, 2957675 ####[facility] [address] [place] [address] Basophils/Leukocytes Auto (Bld) [Pure # fraction] 0.0 E9/L Normal 0.0-0.2 [facility] Comment on above: Order Comment: Order Added by Discern Expert. Performed By: #### 2 667411, 11673538, 1338322, 2508278, 21728273, 63068664, 69107132, 1666087 ####[facility] [address] [place] [address] Eosinophils/100 WBC (Bld) 0.8 % Normal 0.0-8.0 [facility] Comment on above: Order Comment: Order Added by Discern Expert. Performed By: #### 2 451043, 69486582, 5144620, 4832519, 75366669, 09868653, 37887290, 1832552 ####[facility] [address] [place] [address] Eosinophils/Leukocytes Auto (Bld) [Pure # fraction] 0.1 E9/L Normal 0.0-0.5 [facility] Comment on above: Order Comment: Order Added by Discern Expert. Performed By: #### 2 844623, 10338256, 8356666, 7274110, 39467042, 97966790, 30465320, 3376424 ####[place] [address] [place] [address] Lymphocytes/100 WBC (Bld) 11.3 % Low 14.0-50.0 [facility] Comment on above: Order Comment: Order Added by Discern Expert. Performed By: #### 2 892173, 64579982, 0286566, 6052511, 18217261, 15427649, 58566273, 0747188 ####[place] [address] [place] [address] Lymphocytes/Leukocytes Auto (Bld) [Pure # fraction] 1.0 E9/L Normal 1.0-4.0 [facility] Comment on above: Order Comment: Order Added by Discern Expert. Performed By: #### 2 357981, 25594223, 2748497, 0348671, 86055874, 14043107, 94911293, 0653327 ####[place] [address] [place] [address] Monocytes/100 WBC (Bld) 6.9 % Normal 4.0-14.0 [facility] Comment on above: Order Comment: Order Added by Discern Expert. Performed By: #### 2 271951, 70241272, 3901422, 0823735, 46897160, 14339913, 90572150, 8532859 ####[place] [address] [place] [address] Monocytes/Leukocytes Auto (Bld) [Pure # fraction] 0.6 E9/L Normal 0.2-1.0 [facility] Comment on above: Order Comment: Order Added by Discern Expert. Performed By: #### 2 776810, 76272734, 7167083, 0597520, 16220393, 64470455, 93336800, 2642539 ####[facility] [address] [place] [address] Neutrophils/100 WBC (Bld) 80.8 % High 36.0-75.0 [facility] Comment on above: Order Comment: Order Added by Discern Expert. Performed By: #### 2 055229, 45040586, 2117341, 8478737, 02980155, 00409040, 60099374, 6710570 ####[place] [address] [place] [address] Neutrophils/Leukocytes Auto (Bld) [Pure # fraction] 7.1 E9/L Normal 2.0-7.5 [facility] Comment on above: Order Comment: Order Added by Discern Expert. Performed By: #### 2 076153, 90814148, 2257359, 4451789, 23112389, 88010103, 66328080, 6581805 ####[facility] [address] [place] [address] BMPon 09-08-2023 Creatinine [Mass/Vol] 1.2 mg/dL Normal 0.5-1.3 [facility] Comment on above: Performed By: #### 2 025371, 48820302, 8376992, 5062577, 10689091, 47348930, 19173149, 4627911 ####[facility] [address] [place] [address] Urea nitrogen [Mass/Vol] 26 mg/dL High 5-21 [facility] Comment on above: Performed By: #### 2 781649, 07280610, 7068984, 2258527, 31326831, 83803403, 40827717, 1964351 ####[facility] [address] [place] [address] Urea nitrogen/Creatinine [Mass ratio] 22 No Units High 10-20 [facility] Comment on above: Performed By: #### 2 092358, 11918518, 1291986, 2337233, 81115817, 59110438, 21423319, 5336230 ####[facility] [address] [place] [address] Anion gap [Moles/Vol] 13 mmol/L Normal 6-16 [facility] Comment on above: Performed By: #### 2 478775, 92493746, 1247197, 6949558, 93343982, 47932991, 87981922, 2799417 ####[facility] [address] [place] [address] Calcium [Mass/Vol] 9.9 mg/dL Normal 8.9-11.1 [facility] Comment on above: Performed By: #### 2 402870, 83241805, 5728668, 4600006, 02717910, 84378490, 46796895, 6369573 ####[facility] [address] [place] [address] Chloride [Moles/Vol] 99 mmol/L Low 101-111 [facility] Comment on above: Performed By: #### 2 452129, 83095656, 9872083, 3509152, 41585940, 42124170, 45612969, 2223008 ####[facility] [address] [place] [address] CO2 [Moles/Vol] 28 mmol/L Normal 21-31 [facility] Comment on above: Performed By: #### 2 263189, 11581669, 8754273, 6050889, 46500749, 65582342, 42002894, 9636483 ####[facility] [address] [place] [address] Glucose [Mass/Vol] 126 mg/dL Normal 55-199 [facility] Comment on above: Result Comment: If t his glucose result represents a fasting glucose, interpretation should refer to the following reference range: 55-99 mg/dL Performed By: #### 2 241312, 24311774, 3657234, 1926192, 98731969, 52931512, 52762115, 7667669 ####[facility] [address] [place] [address] Potassium [Moles/Vol] 4.0 mmol/L Normal 3.5-5.3 [facility] Comment on above: Performed By: #### 2 705301, 48372438, 0380248, 6717283, 30866081, 74355575, 03301940, 8760467 ####[facility] [address] [place] [address] Sodium [Moles/Vol] 136 mmol/L Normal 135-145 [facility] Comment on above: Performed By: #### 2 665652, 53342114, 8240495, 4881214, 03935992, 58449693, 12134436, 4094503 ####[place] [address] [place] [address] BNPon 09-08-2023 Int Ctr BNP Pass Normal [facility] Comment on above: Performed By: #### 2 021809, 11641176, 8414627, 1272892, 27786088, 45410776, 36179213, 0954720 ####[place] [address] [place] [address] Natriuretic peptide B (Bld) [Mass/Vol] 21 pg/mL Normal 5-80 [facility] Comment on above: Performed By: #### 2 182557, 44292794, 1044462, 5159953, 39770494, 49416505, 01357916, 0094716 ####[facility] [address] [place] [address] CBC w/ Auto Diffon 3 Erythrocyte distribution width (RBC) [Ratio] 15.1 % High 10.9-14.2 [facility] Comment on above: Performed By: #### 2 210853, 35376845, 5906134, 0134331, 50043665, 76347878, 58733566, 1192415 ####[facility] [address] [place] [address] Hematocrit (Bld) [Volume fraction] 38.8 % Normal 34.0-46.0 [facility] Comment on above: Performed By: #### 2 884176, 66379333, 6199094, 9547322, 58485889, 39412773, 58686214, 8048605 ####[facility] [address] [place] [address] Hemoglobin (Bld) [Mass/Vol] 13.0 g/dL Normal 12.0-16.0 [facility] Comment on above: Performed By: #### 2 436529, 69004343, 4195463, 7648927, 62990529, 87901855, 35158217, 5197101 ####[address] [address] MCH (RBC) [Entitic mass] 29.4 pg Normal 27.0-34.0 [facility] Comment on above: Performed By: #### 2 189858, 59091699, 7390548, 8505039, 40881326, 68769891, 24048145, 5315914 ####[facility] [address] [place] [address] MCHC (RBC) [Mass/Vol] 33.5 g/dL Normal 31.4-36.0 [facility] Comment on above: Performed By: #### 2 975756, 94891054, 3569832, 1931084, 05299878, 33004208, 65898432, 6205987 ####[facility] [address] [place] [address] MCV (RBC) [Entitic vol] 87.6 fL Normal 80.0-100.0 [facility] Comment on above: Performed By: #### 2 792423, 22814531, 3714638, 5748278, 62775082, 62715991, 45069459, 1644494 ####[address] [address] Platelet mean volume (Bld) [Entitic vol] 10.7 fL Normal 6.4-10.8 [facility] Comment on above: Performed By: #### 2 792710, 57573089, 5981020, 6818385, 71403239, 03329657, 21165494, 4527001 ####[facility] [address] [place] [address] Platelets (Bld) [#/Vol] 195.0 E9/L Normal 150.0-500.0 [facility] Comment on above: Performed By: #### 2 346786, 12558594, 7707851, 4259780, 04425701, 58873764, 92933992, 3147412 ####[facility] [address] [place] [address] RBC (Bld) [#/Vol] 4.4 E12/L Normal 4.3-5.9 [facility] Comment on above: Performed By: #### 2 131822, 55218343, 0039800, 6392593, 86004289, 16100854, 07698452, 6705765 ####[facility] [address] [place] [address] WBC corrected for nucl RBC Auto (Bld) [#/Vol] 8.8 E9/L Normal 4.0-11.0 [facility] Comment on above: Performed By: #### 2 310207, 29513258, 5941585, 3602288, 25787213, 07938891, 16838097, 5266906 ####[facility] [address] [place] [address] CHEMISTRYOrdered By: SYSTEM SYSTEM on 09-08-2023 Troponin I.cardiac [Mass/Vol] 4.20 pg/mL Low 10.10 - 27.10 pg/mL [facility] Comment on above: Interpretive Data: T [...] 4.5 g/dL High 1.4 - 4.0 gm/dL [facility]isol Glucose [Mass/Vol] 126 mg/dL Normal 55 - 199 mg/dL [facility]isol Comment on above: Interpretive Data: I f this glucose result represents a fasting glucose, interpretation should refer to the following reference range: 55-99 mg/dL Potassium [Moles/Vol] 4.0 mmol/L Normal 3.5 - 5.3 mmol/L [facility] Remisol Protein [Mass/Vol] 8.3 g/dL High 6.0 - 7.8 gm/dL [facility] Remisol Sodium [Moles/Vol] 136 mmol/L Normal 135 - 145 mmol/L [facility] Remisol Troponin I.cardiac [Mass/Vol] 4.70 pg/mL Low 10.10 - 27.10 pg/mL [facility]isol Comment on above: Interpretive Data: T he 95% CI (Confidence Interval) PPV (Positive Predictive Value) for myocardial infarction in females is 38 pg/mL, in males 51 pg/mL. The results should be used in conjunction with clinical conditions of myocardial infarction. (Access High Sensitivity Troponin I Instructions For Use, Claude Raulito, May 2018) Urea nitrogen [Mass/Vol] 26 mg/dL High 5 - 21 mg/dL [facility] Remisol Urea nitrogen/Creatinine [Mass ratio] 22 mg/mg High 10 - 20 [facility]isol CHEMISTRYOrdered By: Yanet Davis on 09-08-2023 Natriuretic peptide B (Bld) [Mass/Vol] 21 pg/mL Normal 5 - 80 pg/mL [facility] COAGULATIONOrdered By: oDv Patel on 09-08-2023 aPTT Coag (PPP) [Time] 37.3 s High 25.1 - 36.5 second(s) [facility] Auto Coag Comment on above: Interpretive Data: [...] the same coagulation reagent and instrumentation as [facility]. Currently there are no coagulation studies available worldwide for children to 14 days, and no normal ranges. Heparin therapeutic range (represented by Anti-Factor Xa activity of 0.2 - 0.4 U/mL) corresponds to PTT of 56.6 - 109.0 sec. INR Coag (PPP) [Relative time] 1.2 {INR} Invalid Interpretation Code [facility] Auto Coag Comment on above: Interpretive Data: I NR results are specifically intended to assess patients stabilized on long-term Anticoagulation therapy suggested INR s Less Intensive Anticoagulation 2.0 3.0 Conventional Range 3.0 4.5 PT Coag (PPP) [Time] 13.7 s High 9.4 - 1 2.5 second(s) [facility] Auto Coag Comment on above: Interpretive Data: [...] the same coagulation reagent and instrumentation as [facility]. Currently there are no coagulation studies available [...] Normal [facility] Consent for Treatmenton Consent for Treatment [id number]# 1.00TIFF Normal [facility] Discharge Instructionson Discharge Instructions [id number]# 1.00TIFF Normal [facility] ED Clinical Summaryon 2022 ED Clinical Summary [address] [address] ED Clinical Summary Person Information Name: MOOREALIYA/[facility] Age: 57 Years : 1965 Sex: Female Language: Indian PCP: BREA JJ CNP Marital Status: Visit [...] 09/08/2023 20:29:11 09/08/2023 20:29:11 09/08/2023 20:29:11 ADDRESS: [address] [place] [address] [address] [facility] [phone] PHYS DOC NOTES: MEDICAL INFORMATION: Prescriptions Given: [...] day. fluticasone nasal (fluticasone Nasal 0.05 mg/inh [place]) 2 Sprays Nasal Inhalation every day. each [...] Mouth every day. potassium chloride (Potassium Chloride (Xwa-Vpbo-Rbz 10) 10 mEq oral tablet, extended release) [...] Address: When: BREA JJ [address] [facility], [place], [place] [phone] Business (1) In 3 days DIAGNOSIS: Acute chest pain Normal [facility] ED Note-Physicianon 11-09-20 23 ED Note-Physician Patient was signed out to [...] these instructions at home: Medicines ? Take bfri-qjb-xceterj and prescription medicines only as told by [...] ED Patient Summaryon 023 ED Patient Summary [place] [id number] Patient Discharge Instructions Person Information Name: ALIYA MOORE Age: 57 Years Arrival Date: 09/08/2023 16:32:21 Discharge Diagnosis: Acute chest pain Primary Care Physician: BREA JJ CNP Provider Information Primary Provider: Ramses Hair DO Advanced Gas Examiner:None The exam and treatment you received in the Emergency Department were for an urgent problem and are not intended as complete care. It is important that you follow up with a doctor, nurse practitioner, or physician?s hardware sales assistant for ongoing care. If your symptoms become worse or you do not improve as expected and you are unable to reach your usual health care provider, you should return to the Emergency Department. We are available 24 hours a day. TERESAALIYA has been given the following list of patient education materials, prescriptions and follow-up instructions: Follow-up Instructions: With: Address: When: BREA JJ [address] [place], [place] [phone] Business (1) In 3 days In the event that this physician does not participate in your insurance network, please consult with your insurance company to find a nearby participating provider. Patient Education Materials: Nonspecific Chest Pain, Adult A MESSAGE TO ALL PATIENTS REGARDING OPIOIDS PRESCRIPTION OPIOIDS: WHAT YOU NEED TO KNOW Prescription opioids can be used to help relieve ezyosygi-mg-csyxoi pain and are often prescribed following a [...] be struggling with addiction, tell your health respiratory care practitioner and ask for guidance or call [facility]?S National Helpline at 1-344-119-AKCM. v Source: [place] (more content not included)... [...] 15.1 % High 10.9 - 14.2 % FT HemeAutoSS Hematocrit (Bld) [Volume fraction] 38.8 % Normal 34.0 - 46.0 % FT [...] HemeAutoSS Platelets (Bld) [#/Vol] 195.0 E9/L Normal 150. 0 - 500.0 E9/L [facility] HemeAutoSS RBC (Bld) [#/Vol] 4.4 E12/L Normal 4.3 - 5.9 E12/L [facility] HemeAutoSS WBC corrected for nucl RBC Auto (Bld) [#/Vol] 8.8 E9/L Normal 4.0 - 11.0 E9/L [facility] HemeAutoSS Hep Func Panelon 09-08-2023 Bilirubin.indirect [Mass or moles/Vol] UTC Abnormal 0.1-0.9 [facility] Comment on above: Result Comment: Resu lt verified by Discern Rule. Performed result UTC (Unable to Calculate) was sent as an Alpha code due the inability to calculate a valid numeric value. Performed By: #### 2 616884, 13329000, 7548011, 1617636, 40381344, 32333983, 06329390, 5204885 ####[facility] [address] [place] [address] Albumin [Mass/Vol] 3.8 g/dL Normal 3.3-5.0 [facility] Comment on above: Performed By: #### 2 513884, 36969892, 6442933, 2410423, 27598987, 67689051, 47445530, 1859931 ####[facility] [address] [place] [address] Albumin/Globulin (S) [Mass conc ratio] 0.8 Low 1.1-2.2 [facility] Comment on above: Performed By: #### 2 402079, 96062914, 1705427, 8771462, 10470658, 62486540, 45970485, 3828826 ####[address] [place] [address] ALP [Catalytic activity/Vol] 68 Int._Unit/L Normal 21-98 [facility] Comment on above: Performed By: #### 2 168122, 10948063, 1238262, 4508313, 43750502, 33084991, 52529460, 9388688 ####[address] [address] ALT No additional P-5'-P [Catalytic activity/Vol] 18 Int._Unit/L Normal 6-46 [facility] Comment on above: Performed By: #### 2 185472, 24670895, 2888084, 9281484, 45426452, 82275873, 38244504, 7967465 ####[address] [address] AST [Catalytic activity/Vol] 20 Int._Unit/L Normal 5-43 [facility] Comment on above: Performed By: #### 2 403912, 05598204, 4446900, 2279810, 95406431, 96283403, 90091460, 0826442 ####[facility] [address] [place] [address] Bilirubin [Mass/Vol] 0.4 mg/dL Normal 0.0-1.1 [facility] Comment on above: Performed By: #### 2 948602, 96408628, 2275886, 5217689, 53687624, 22872978, 09010128, 0661858 ####[address] [place] [address] Globulin (S) [Mass/Vol] 4.5 g/dL High 1.4-4.0 [facility] Comment on above: Performed By: #### 2 646092, 84956942, 8271478, 7995798, 73882757, 95169774, 89083074, 5722684 ####[facility] [address] [place] [address] Protein [Mass/Vol] 8.3 g/dL High 6.0-7.8 [facility] Comment on above: Performed By: #### 2 576921, 26563481, 3919276, 0987504, 81152111, 84502277, 59640312, 8055765 ####[facility] [address] [place] [address] Bilirubin.direct [Mass/Vol] mg/dL Normal 0.1-0.4 [facility] Comment on above: Performed By: #### 2 817082, 55095249, 7066973, 4493810, 38002851, 25909954, 10438391, 4948825 ####[facility] [address] [place] [address] Monitor Recordon 09-08-2023 Monitor Record [id number]# 1.00TIFF Normal [facility] Monitor Record [id number]# 1.00TIFF Normal [facility] PT & [...] ranges were obtained from a study by brunilda Mena. prepared from 1437 samples obtained at 7 different centers using the same coagulation reagent and instrumentation as [facility]. Currently there are no coagulation studies available worldwide for children to 14 days, and no normal ranges. Heparin therapeutic range (represented by Anti-Factor Xa activity of 0.2 - 0.4 U/mL) corresponds to PTT of 56.6 - 109.0 sec. Performed By: #### 2 989458, 54251177, 9463089, 0226158, 84363373, 46109670, 59876902, 8261070 ####[facility] [address] [place] [address] INR Coag (PPP) [Relative time] 1.2 {INR} Invalid Interpretation Code [facility] Comment on above: Result Comment: INR results are specifically intended to assess patients stabilized on long-term Anticoagulation therapy suggested INR?s ?Less Intensive Anticoagulation? 2.0 ? 3.0 Conventional Range 3.0 ? 4.5 Performed By: #### 2 815900, 29091756, 4499936, 7128914, 90576941, 70176916, 89078363, 2836028 ####[facility] [address] [place] [address] PT Coag (PPP) [Time] 13.7 second(s) High [...] ranges were obtained from a study by paulo Mena prepared from 1437 samples obtained at 7 different centers using the same coagulation reagent and instrumentation as [facility]. Currently there are no coagulation studies available worldwide for children to 14 days, and no normal ranges. Performed By: #### 2 570209, 34137978, 7123811, 0092193, 20988294, 49042345, 65609769, 7576289 ####[facility] [address] [place] [address] Troponin 0 Hr.on 09-08-2023 Troponin I.cardiac [Mass/Vol] 4.70 pg/mL Low 10.10-27.10 [facility] Comment on above: Result Comment: The 95% CI (Confidence Interval) PPV (Positive Predictive Value) for myocardial infarction in females is 38 pg/mL, in males 51 pg/mL. The results should be used in conjunction with clinical conditions of myocardial infarction. (Access High Sensitivity Troponin I Instructions For Use, [facility]OOK, May 2018) Performed By: #### 2 208478, 34030040, 9849480, 1592797, 09812763, 53612708, 19234057, 2646407 ####[facility] [address] [place] [address] Troponin 3 Hr.on 09-08-2023 Troponin I.cardiac [Mass/Vol] 4.20 pg/mL Low 10.10-27.10 [facility] Comment on above: Result Comment: The 95% CI (Confidence Interval) PPV (Positive Predictive Value) for myocardial infarction in females is 38 pg/mL, in males 51 pg/mL. The results should be used in conjunction with clinical conditions of myocardial infarction. (Access High Sensitivity Troponin I Instructions For Use, OBOOK, May 2018) Performed By: #### 1 [id number] ####[facility] [address] [place] [address] eGFRon 09-08-2023 GFR/1.73 sq M.predicted among non-blacks MDRD (S/P/Bld) [Vol rate/Area] 52 mL/min/1.73 m2 Low >=59 [facility] Comment on above: Order Comment: Order added by Discern Expert. Result Comment: Aids Nurse nita kidney disease could be indicated at eGFR's of less than 60 mL/min/1.73m2. Kidney failure is indicated at less than 15 mL/min/1.73m2. Performed By: #### 2 185070, 96477494, 3055021, 5293769, 71823393, 54466496, 81137710, 5681647 ####[facility] [address] [place] [address] CHEMISTRYOrdered By: Lab ROP User on 06-17-2023 Glucose [Mass/Vol] 109 mg/dL High 55 - 99 mg/dL [facility] POC Subsection Comment on above: Result Comment: Rafaela garzon RN/ POC Device SN [id number] Invalid Interpretation Code [facility] POC Subsection POC User ID [id number] Invalid Interpretation Code [facility] POC Subsection POC Username BRENDA DIAZ Invalid Interpretation Code [facility] POC Subsection Glucose [Mass/Vol] 133 mg/dL High 55 - 99 mg/dL [facility] POC Subsection Comment on above: Result Comment: Rafaela garzon RN/ POC Device SN [id number] Invalid Interpretation Code [facility] POC Subsection POC User ID [id number] Invalid Interpretation Code [facility] POC Subsection POC Username FAVIOLA MURO Invalid Interpretation Code [facility] POC Subsection Glucose [Mass/Vol] 109 mg/dL High 55 - 99 mg/dL [facility] POC Subsection Comment on above: Result Comment: Rafaela garzon RN/ POC Device SN [id number] Invalid Interpretation Code [facility] POC Subsection POC User ID [id number] Invalid Interpretation Code [facility] POC Subsection POC Username BRENDA DIAZ Invalid Interpretation Code [facility] POC Subsection CHEMISTRYOrdered [...] 10.5 fL Normal 6.4 - 10.8 fL [facility] HemeAutoSS Platelets (Bld) [#/Vol] 172.0 E9/L Normal 150. 0 - 500.0 E9/L [facility] HemeAutoSS RBC (Bld) [#/Vol] 4.6 E12/L Normal 4.3 - 5.9 E12/L [facility] HemeAutoSS WBC corrected for nucl RBC Auto (Bld) [#/Vol] 8.4 E9/L Normal 4.0 - 11.0 E9/L [facility] HemeAutoSS BNPon 02-23-2023 Natriuretic peptide B (Bld) [Mass/Vol] 114.0 pg/mL Normal <=900.0 [facility] Comment on above: Performed By: #### C MP, BNP, HSTROPN #### [facility] [address] [place] [address] Dr. Xiomy Lennon CBC AUTO DIFFon 02-23-2023 BASO # 0.0 103/ul Normal 0.0-0.1 [facility] Comment on above: Performed By: #### P T, PTT #### [facility] [address] [place] [address] Dr. Xiomy Lennon Basophils/100 WBC (Bld) 0.2 % Normal 0.2-2.0 [facility] Comment on above: Performed By: #### P T, PTT #### [facility] [address] [place] [address] Dr. Xiomy Lennon EO # 0.2 103/ul Normal 0.0-0.7 [facility] Comment on above: Performed By: #### P T, PTT #### [facility] [address] [place] [address] Dr. Xiomy Lennon Eosinophils/100 WBC (Bld) 1.8 % Normal 0.9-7.0 [facility] Comment on above: Performed By: #### P T, PTT #### [facility] [address] [place] [address] Dr. Xiomy Lennon Erythrocyte distribution width (RBC) [Ratio] 15.4 % Critically high 11.0-15.0 [facility] Comment on above: Performed By: #### P T, PTT #### [facility] [address] [place] [address] Dr. Xiomy Lennon Hematocrit (Bld) [Volume fraction] 37.6 % Normal 36.0-48.0 [facility] Comment on above: Performed By: #### P T, PTT #### [facility] [address] [place] [address] Dr. Xiomy Lennon Hemoglobin (Bld) [Mass/Vol] 12.2 g/dL Normal 12.0-16.0 [facility] Comment on above: Performed By: #### P T, PTT #### [facility] [address] [place] [address] Dr. Xiomy Lennon IG # 0.02 10e3/ul Normal 0.00-0.03 [facility] Comment on above: Performed By: #### P T, PTT #### [facility] [address] [place] [address] Dr. Xiomy Lennon IG % 0.2 % Normal 0.0-0.5 [facility] Comment on above: Performed By: #### P T, PTT #### [facility] [address] [place] [address] Dr. Xiomy Lennon LYMPH # 1.7 103/ul Normal 1.2-3.8 [facility] Comment on above: Performed By: #### P T, PTT #### [facility] [address] [place] [address] Dr. Xiomy Lennon Lymphocytes/100 WBC (Bld) 17.0 % Critically low 20.5-60.0 [facility] Comment on above: Performed By: #### P T, PTT #### [facility] [address] [place] [address] Dr. Xiomy Lennon MANUAL DIFF REQ NO Normal [facility] Comment on above: Performed By: #### P T, PTT #### [facility] [address] [place] [address] Dr. Xiomy Lennon MCH (RBC) [Entitic mass] 28.6 pg Normal 26.7-34.0 [facility] Comment on above: Performed By: #### P T, PTT #### [facility] [address] [address] [address] Xiomy Lennon MCHC (RBC) [Mass/Vol] 32.4 g/dL Normal 29.9-35.2 [facility] Comment on above: Performed By: #### P T, PTT #### [facility] [address] [place] [address] Dr. Xiomy Lennon MCV (RBC) [Entitic vol] 88.3 fL Normal 81.0-99.0 [facility] Comment on above: Performed By: #### P T, PTT #### [facility] [address] [place] [address] Dr. Xiomy Lennon MONO # 0.7 103/ul Normal 0.3-0.8 [facility] Comment on above: Performed By: #### P T, PTT #### [facility] [address] [place] [address] Dr. Xiomy Lennon Monocytes/100 WBC (Bld) 7.3 % Normal 1.7-12.0 [facility] Comment on above: Performed By: #### P T, PTT #### [facility] [address] [place] [address] Dr. Xiomy Lennon NEUT # 7.2 103/ul Critically high 1.4-6.5 [facility] Comment on above: Performed By: #### P T, PTT #### [facility] [address] [place] [address] Dr. Xiomy Lennon Neutrophils/100 WBC (Bld) 73.5 % Normal 43.0-75.0 [facility] Comment on above: Performed By: #### P T, PTT #### [facility] [address] [place] [address] Dr. Xiomy Lennon Platelet mean volume (Bld) [Entitic vol] 11.5 fL Normal 9.5-13.5 [facility] Comment on above: Performed By: #### P T, PTT #### [facility] [address] [place] [address] Dr. Xiomy Lennon PLT 197 103/ul Normal 150-450 [facility] Comment on above: Performed By: #### P T, PTT #### [facility] [address] [place] [address] Dr. Xiomy Lennon RBC 4.26 106/ul Normal 4.20-5.40 [facility] Comment on above: Performed By: #### P T, PTT #### [facility] [address] [place] [address] Dr. Xiomy Lennon WBC 9.7 103/ul Normal 4.0-11.0 [facility] Comment on above: Performed By: #### P T, PTT #### [facility] [address] [place] [address] Dr. Xiomy Lennon LACTATE/LACTIC ACIDon 2022 Lactate [Moles/Vol] 0.7 mmol/L Normal 0.4-2.0 [facility] Comment on above: Performed By: #### P T, PTT #### [facility] [address] [place] [address] Dr. Xiomy Lennon PROF 14(COMP METB)on 023 Albumin [Mass/Vol] 3.3 g/dL Critically low 3.4-5.0 [facility] Comment on above: Performed By: #### C MP, BNP, HSTROPN #### [facility] [address] [place] [address] Dr. Xiomy Lennon Albumin/Globulin [Mass ratio] 0.7 {ratio} Normal [facility] Comment on above: Performed By: #### C MP, BNP, HSTROPN #### [facility] [address] [place] [address] Dr. Xiomy Lennon ALP [Catalytic activity/Vol] 89 U/L Normal 46-116 [facility] Comment on above: Performed By: #### C MP, BNP, HSTROPN #### [facility] [address] [place] [address] Dr. Xiomy Lennon ALT [Catalytic activity/Vol] 34 U/L Normal 14-59 [facility] Comment on above: Performed By: #### C MP, BNP, HSTROPN #### [facility] [address] [place] [address] Dr. Xiomy Lennon Anion gap [Moles/Vol] 10.5 mmol/L Normal Th [facility] Comment on above: Performed By: #### C MP, BNP, HSTROPN #### [facility] [address] [address] [address] Xiomy Lennon AST [Catalytic activity/Vol] 22 U/L Normal 15-37 [facility] Comment on above: Performed By: #### C MP, BNP, HSTROPN #### [facility] [address] [place] [address] Dr. Xiomy Lennon Bilirubin [Mass/Vol] 0.3 mg/dL Normal 0.2-1.0 [facility] Comment on above: Performed By: #### C MP, BNP, HSTROPN #### [facility] [address] [place] [address] Dr. Xiomy Lennon Calcium [Mass/Vol] 9.4 mg/dL Normal 8.5-10.1 [facility] Comment on above: Performed By: #### C MP, BNP, HSTROPN #### [facility] [address] [place] [address] Dr. Xiomy Lennon Chloride [Moles/Vol] 99 mmol/L Normal 98-107 [facility] Comment on above: Performed By: #### C MP, BNP, HSTROPN #### [facility] [address] [place] [address] Dr. Xiomy Lennon CO2 [Moles/Vol] 31.6 mmol/L Normal 21.0-32.0 [facility] Comment on above: Performed By: #### C MP, BNP, HSTROPN #### [facility] [address] [place] [address] Dr. Xiomy Lennon Creatinine [Mass/Vol] 0.86 mg/dL Normal 0.55-1.02 [facility] Comment on above: Performed By: #### C MP, BNP, HSTROPN #### [facility] [address] [place] [address] Dr. Xiomy Lennon EGFR-AF SENEGALESE >60 Normal >=60 [facility] Comment on above: Performed By: #### C MP, BNP, HSTROPN #### [facility] [address] [place] [address] Dr. Xiomy Lennon EGFR-NON AF SENEGALESE >60 Normal >=60 [facility] Comment on above: Performed By: #### C MP, BNP, HSTROPN #### [facility] [address] [place] [address] Dr. Xiomy Lennon Globulin (S) [Mass/Vol] 4.6 g/dL Normal [facility] Comment on above: Performed By: #### C MP, BNP, HSTROPN #### [facility] [address] [place] [address] Dr. Xiomy Lennon Glucose [Mass/Vol] 133 mg/dL Critically high 74-106 [facility] Comment on above: Performed By: #### C MP, BNP, HSTROPN #### [facility] [address] [place] [address] Dr. Xiomy Lennon Potassium [Moles/Vol] 4.1 mmol/L Normal 3.5-5.1 [facility] Comment on above: Performed By: #### C MP, BNP, HSTROPN #### [facility] [address] [place] [address] Dr. Xiomy Lennon Protein [Mass/Vol] 7.9 g/dL Normal 6.4-8.2 [facility] Comment on above: Performed By: #### C MP, BNP, HSTROPN #### [facility] [address] [place] [address] Dr. Xiomy Lennon Sodium [Moles/Vol] 137 mmol/L Normal 136-145 [facility] Comment on above: Performed By: #### C MP, BNP, HSTROPN #### [facility] [address] [place] [address] Dr. Xiomy Lennon Urea nitrogen [Mass/Vol] 16.0 mg/dL Normal 7.0-18.0 [facility] Comment on above: Performed By: #### C MP, BNP, HSTROPN #### [facility] [address] [place] [address] Dr. Xiomy Lennon Urea nitrogen/Creatinine [Mass ratio] 18.6 mg/mg Normal [facility] Comment on above: Performed By: #### C MP, BNP, HSTROPN #### [facility] [address] [place] [address] Dr. Xiomy Lennon PROTIMEon 02-23-2023 INR Coag (PPP) [Relative time] 0.95 {INR} Normal [facility] Comment on above: Performed By: #### P TT, PT #### [facility] [address] [place] [address] Dr. Xiomy Lennon INR GUIDELINES SEE BELOW Normal [facility] Comment on above: Result Comment: NIALL RED INR: 2.0 - 3.0 CONDITIONS NOT LISTED BELOW 2.5 - 3.5 FOR PROSTHETIC HEART VALVE REPLACEMENT 2.5 - 3.5 RECURRENT THROMBOSIS Performed By: #### P TT, PT #### [facility] [address] [place] [address] Dr. Xiomy Lennon PT Coag (PPP) [Time] 10.1 s Normal 9.0-11.6 [facility] Comment on above: Performed By: #### P TT, PT #### [facility] [address] [place] [address] Dr. Xiomy Lennon PTTon 02-23-2023 aPTT Coag (Bld) [Time] 27.2 s Normal 22.3-36.2 [facility] Comment on above: Performed By: #### P TT, PT #### [facility] [address] [place] [address] Dr. Xiomy Lennon TROPONIN, HIGH SENSITIVITYon 02-23-2023 HSTROP 6.2 pg/mL Normal 4.0-51.3 [facility] Comment on above: Result Comment: CUT- OFF POINTS HAVE BEEN ESTABLISHED BASED ON THE FOURTH UNIVERSAL DEFINITIONS OF MYOCARDIAL INFARCTION. THE UPPER REFERENCE LIMIT (URL) OF TROPONIN, DEFINED THE 99TH PERCENTILE OF cTnI DISTRIBUTION IN A REFERENCE POPULATION, HAS BEEN CONFIRMED THE DECISION THRESHOLD FOR ID DIAGNOSIS. Performed By: #### C MP, BNP, HSTROPN #### [facility] [address] [place], [place] [address] Dr. Xiomy Lennon XR CHEST 1 Von [...] JUSTINE MARES Date: 2023-02-23 19:05 Normal [facility] HEMOGLOBINon 02-01-2023 Hemoglobin (Bld) [Mass/Vol] 13.0 g/dL Normal 12.0-16.0 [facility] Comment on above: Performed By: #### H GB #### [facility] [id number] Xiomy Lennon PULMONARY FUNCTION TESTon PULMONARY FUNCTION TEST PULMONARY FUNCTI ON TEST NOTE DATE: 02/01/2023 SIX MINUTE WALK [...] ambulation/activity. 3. Clinical correlation required. Normal [facility] CT LUNG CANCER SCREENINGon 0 [...] by: MIGUEL MEDEROS Date: 2023-01-12 14:10 Normal [facility] GLYCOHEMOGLOBIN A1Con 2022 ADA RECOMMENDATION SEE BELOW Normal [facility] Comment on above: Result Comment: ADA RECOMMENDED LIMIT 4.0 - 6.0 ADA THERAPEUTIC TARGET < 7.0 ACTION SUGGESTED > 7.0 Performed By: #### A 1C #### [facility] [address] [place] [address] Dr. Xiomy Lennon Glucose [Mass/Vol] 111 mg/dL Normal [facility] Comment on above: Performed By: #### A 1C #### [facility] [address] [address] [address] Xiomy Lennon HbA1c (Bld) [Mass fraction] 5.5 % Normal 4.5-6.2 [facility] Comment on above: Performed By: #### A 1C #### [facility] [address] [place] [address] Dr. Xiomy Lennon PROF CHEM 8 (BAS METB)on Anion gap [Moles/Vol] 12.0 mmol/L Normal [facility] Comment on above: Performed By: #### P T, PTT #### [facility] [address] [address] [address] Xiomy Lennon Calcium [Mass/Vol] 10.0 mg/dL Normal 8.5-10.1 [facility] Comment on above: Performed By: #### P T, PTT #### [facility] [address] [address] [address] Xiomy Lennon Chloride [Moles/Vol] 102 mmol/L Normal 98-107 [facility] Comment on above: Performed By: #### P T, PTT #### [facility] [address] [address] [address] Xiomy Lennon CO2 [Moles/Vol] 30.4 mmol/L Normal 21.0-32.0 [facility] Comment on above: Performed By: #### P T, PTT #### [facility] [address] [place] [address] Dr. Xiomy Lennon Creatinine [Mass/Vol] 0.79 mg/dL Normal 0.55-1.02 [facility] Comment on above: Performed By: #### P T, PTT #### [facility] [address] [address] [address] Xiomy Lennon EGFR-AF SENEGALESE >60 Normal >=60 [facility] Comment on above: Performed By: #### P T, PTT #### [facility] [address] [place] [address] Dr. Xiomy Lennon EGFR-NON AF SENEGALESE >60 Normal >=60 [facility] Comment on above: Performed By: #### P T, PTT #### [facility] [address] [address] [address] Xiomy Lennon Glucose [Mass/Vol] 147 mg/dL Critically high 74-106 [facility] Comment on above: Performed By: #### P T, PTT #### [facility] [address] [place] [address] Dr. Xiomy Lennon Potassium [Moles/Vol] 4.4 mmol/L Normal 3.5-5.1 [facility] Comment on above: Performed By: #### P T, PTT #### [facility] [address] [address] [address] Xiomy Lennon Sodium [Moles/Vol] 140 mmol/L Normal 136-145 [facility] Comment on above: Performed By: #### P T, PTT #### [facility] [address] [address] [address] Xiomy Lennon Urea nitrogen [Mass/Vol] 18.0 mg/dL Normal 7.0-18.0 [facility] Comment on above: Performed By: #### P T, PTT #### [facility] [address] [address] [address] Xiomy Lennon Urea nitrogen/Creatinine [Mass ratio] 22.8 mg/mg Normal [facility] Comment on above: Performed By: #### P T, PTT #### [facility] [address] [place] [address] Dr. Xiomy Lennon THEOPHYLLINEon 11-04-2022 THEOPHYLLINE 2.1 ug/mL Critically low 10.0-20.0 [facility] Comment on above: Performed By: #### T HERBERT #### [facility] [address] [address] [address] Xiomy Lennon GLYCOHEMOGLOBIN A1Con 2021 ADA RECOMMENDATION SEE BELOW Normal [facility] Comment on above: Result Comment: ADA RECOMMENDED LIMIT 4.0 - 6.0 ADA THERAPEUTIC TARGET < 7.0 ACTION SUGGESTED > 7.0 Performed By: #### P T, PTT #### [facility] [address] [address] [address] Xiomy Lennon Glucose [Mass/Vol] 120 mg/dL Normal [facility] Comment on above: Performed By: #### P T, PTT #### [facility] [address] [address] [address] Xiomy Lennon HbA1c (Bld) [Mass fraction] 5.8 % Normal 4.5-6.2 [facility] Comment on above: Performed By: #### P T, PTT #### [facility] [address] [address] [address] Xiomy Lennon LIPID PROFILEon 07-28-2022 CHOL-HDL RATIO NORM SEE BELOW Normal [facility] Comment on above: Result Comment: 3.3 - 4.4 LOW RISK 4.4 - 7.1 AVERAGE RISK 7.1 - 11.0 MODERATE RISK >11.0 HIGH RISK Performed By: #### P T, PTT #### [facility] [address] [address] [address] Xiomy Lennon Cholesterol [Mass/Vol] 135 mg/dL Normal <=200 [facility] Comment on above: Performed By: #### P T, PTT #### [facility] [address] [address] [address] Xiomy Lennon Cholesterol in HDL [Mass/Vol] 77 mg/dL Critically high 40-60 [facility] Comment on above: Performed By: #### P T, PTT #### [facility] [address] [address] [address] Xiomy Lennon Cholesterol in LDL [Mass/Vol] 44.6 mg/dL Normal [facility] Comment on above: Performed By: #### P T, PTT #### [facility] [address] [address] [address] Xiomy Lennon Cholesterol.total/Marylin sterol in HDL [Mass ratio] 1.8 {ratio} Normal [facility] Comment on above: Performed By: #### P T, PTT #### [facility] [address] [address] [address] Ximoy Lennon HDL NORMAL > or = 60 mg/dl - LO W CARDIOVASCULAR RISK <40 mg/dl - HIGH CARDIOVASCULAR RISK Normal [facility] Comment on above: Performed By: #### P T, PTT #### [facility] [address] [address] [address] Xiomy Lennon LDL CALC NORMAL SEE BELOW Normal [facility] Comment on above: Result Comment: <100 mg/dl OPTIMAL 100 - 129 mg/dl NEAR OR ABOVE OPTIMAL 130 - 159 mg/dl BORDERLINE HIGH 160 - 189 mg/dl HIGH >190 mg/dl VERY HIGH Performed By: #### P T, PTT #### [facility] [address] [address] [address] Xiomy Lennon Triglyceride [Mass/Vol] 67 mg/dL Normal <=150 [facility] Comment on above: Performed By: #### P T, PTT #### [facility] [address] [place] [address] Dr. Xiomy Lennon VLDL CALC 13.4 mg/dL Normal [facility] Comment on above: Performed By: #### P T, PTT #### [facility] [address] [place] [address] Dr. Xiomy Lennon PROF CHEM 8 (BAS METB)on Anion gap [Moles/Vol] 8.9 mmol/L Normal [facility] Comment on above: Performed By: #### P T, PTT #### [facility] [address] [place] [address] Dr. Xiomy Lennon Calcium [Mass/Vol] 9.7 mg/dL Normal 8.5-10.1 [facility] Comment on above: Performed By: #### P T, PTT #### [facility] [address] [place] [address] Dr. Xiomy Lennon Chloride [Moles/Vol] 99 mmol/L Normal 98-107 [facility] Comment on above: Performed By: #### P T, PTT #### [facility] [address] [place] [address] Dr. Xiomy Lennon CO2 [Moles/Vol] 32.0 mmol/L Normal 21.0-32.0 [facility] Comment on above: Performed By: #### P T, PTT #### [facility] [address] [place] [address] Dr. Xiomy Lennon Creatinine [Mass/Vol] 0.78 mg/dL Normal 0.55-1.02 [facility] Comment on above: Performed By: #### P T, PTT #### [facility] [address] [place] [address] Dr. Xiomy Lennon EGFR-AF SENEGALESE >60 Normal >=60 [facility] Comment on above: Performed By: #### P T, PTT #### [facility] [address] [place] [address] Dr. Xiomy Lennon EGFR-NON AF SENEGALESE >60 Normal >=60 [facility] Comment on above: Performed By: #### P T, PTT #### [facility] [address] [address] [address] Xiomy Lennon Glucose [Mass/Vol] 111 mg/dL Critically high 74-106 [facility] Comment on above: Performed By: #### P T, PTT #### [facility] [address] [address] [address] Xiomy Lennon Potassium [Moles/Vol] 3.9 mmol/L Normal 3.5-5.1 [facility] Comment on above: Performed By: #### P T, PTT #### [facility] [address] [address] [address] Xiomy Lennon Sodium [Moles/Vol] 136 mmol/L Normal 136-145 [facility] Comment on above: Performed By: #### P T, PTT #### [facility] [address] [address] [address] Xiomy Lennon Urea nitrogen [Mass/Vol] 10.0 mg/dL Normal 7.0-18.0 [facility] Comment on above: Performed By: #### P T, PTT #### [facility] [address] [address] [address] Xiomy Lennon Urea nitrogen/Creatinine [Mass ratio] 12.8 mg/mg Normal [facility] Comment on above: Performed By: #### P T, PTT #### [facility] [address] [address] [address] Xiomy Lennon MG MAMM SCREEN 3D EMY CADon 04-30-2022 MG MAMM SCREEN 3D EMY CAD Patient: ALIYA MOORE Exam Date: 04/30/2022 : 1965 Gender:F Ordering : ENRIQUE JJ CNP Admission #: [id number] Family : Order #: [id number] CLICK HERE TO VIEW EXAM RADIOLOGY REPORT [...] Treatments None Family Cancers None LOCATION: [facility] BREAST COMPOSITION: Almost entirely fatty. [...] Ayoub MD on 04/30/2022 at 10:06 Normal [facility] CBC AUTO DIFFon 03-26-2022 BASO # 0.0 103/ul Normal 0.0-0.1 [facility] Comment on above: Performed By: #### P T, PTT #### [facility] [address] [place] [address] Dr. Xiomy Lennon Basophils/100 WBC (Bld) 0.2 % Normal 0.2-2.0 [facility] Comment on above: Performed By: #### P T, PTT #### [facility] [address] [place] [address] Dr. Xiomy Lennon EO # 0.2 103/ul Normal 0.0-0.7 [facility] Comment on above: Performed By: #### P T, PTT #### [facility] [address] [place] [address] Dr. Xiomy Lennon Eosinophils/100 WBC (Bld) 1.7 % Normal 0.9-7.0 [facility] Comment on above: Performed By: #### P T, PTT #### [facility] [address] [place] [address] Dr. Xiomy Lennon Erythrocyte distribution width (RBC) [Ratio] 15.6 % Critically high 11.0-15.0 [facility] Comment on above: Performed By: #### P T, PTT #### [facility] [address] [place], [place] [id number] Dr. Xiomy Lennon Hematocrit (Bld) [Volume fraction] 43.4 % Normal 36.0-48.0 [facility] Comment on above: Performed By: #### P T, PTT #### [facility] [address] [place] [address] Dr. Xiomy Lennon Hemoglobin (Bld) [Mass/Vol] 14.0 g/dL Normal 12.0-16.0 [facility] Comment on above: Performed By: #### P T, PTT #### [facility] [address] [place] [address] Dr. Xiomy Lennon IG # 0.04 10e3/ul Critically high 0.00-0.03 [facility] Comment on above: Performed By: #### P T, PTT #### [facility] [address] [place] [address] Dr. Xiomy Lennon IG % 0.4 % Normal 0.0-0.5 [facility] Comment on above: Performed By: #### P T, PTT #### [facility] [address] [place] [address] Dr. Xiomy Lennon LYMPH # 1.2 103/ul Normal 1.2-3.8 [facility] Comment on above: Performed By: #### P T, PTT #### [facility] [address] [place] [address] Dr. Xiomy Lennon Lymphocytes/100 WBC (Bld) 11.4 % Critically low 20.5-60.0 [facility] Comment on above: Performed By: #### P T, PTT #### [facility] [address] [place] [address] Dr. Xiomy Lennon MANUAL DIFF REQ NO Normal [facility] Comment on above: Performed By: #### P T, PTT #### [facility] [address] [place] [address] Dr. Xiomy Lennon MCH (RBC) [Entitic mass] 29.7 pg Normal 26.7-34.0 [facility] Comment on above: Performed By: #### P T, PTT #### [facility] [address] [place] [address] Dr. Xiomy Lennon MCHC (RBC) [Mass/Vol] 32.3 g/dL Normal 29.9-35.2 [facility] Comment on above: Performed By: #### P T, PTT #### [facility] [address] [place] [address] Dr. Xiomy Lennon MCV (RBC) [Entitic vol] 92.1 fL Normal 81.0-99.0 [facility] Comment on above: Performed By: #### P T, PTT #### [facility] [address] [place] [address] Dr. Xiomy Lennon MONO # 0.8 103/ul Normal 0.3-0.8 [facility] Comment on above: Performed By: #### P T, PTT #### [facility] [address] [place] [address] Dr. Xiomy Lennon Monocytes/100 WBC (Bld) 7.9 % Normal 1.7-12.0 [facility] Comment on above: Performed By: #### P T, PTT #### [facility] [address] [place] [address] Dr. Xiomy Lennon NEUT # 8.3 103/ul Critically high 1.4-6.5 [facility] Comment on above: Performed By: #### P T, PTT #### [facility] [address] [place] [address] Dr. Xiomy Lennon Neutrophils/100 WBC (Bld) 78.4 % Critically high 43.0-75.0 [facility] Comment on above: Performed By: #### P T, PTT #### [facility] [address] [place] [address] Dr. Xiomy Lennon Platelet mean volume (Bld) [Entitic vol] 11.0 fL Normal 9.5-13.5 [facility] Comment on above: Performed By: #### P T, PTT #### [facility] [address] [place] [address] Dr. Xiomy Lennon PLT 196 103/ul Normal 150-450 [facility] Comment on above: Performed By: #### P T, PTT #### [facility] [address] [place] [address] Dr. Xiomy Lennon RBC 4.71 106/ul Normal 4.20-5.40 [facility] Comment on above: Performed By: #### P T, PTT #### [facility] [address] [place] [address] Dr. Xiomy Lennon WBC 10.6 103/ul Normal 4.0-11.0 [facility] Comment on above: Performed By: #### P T, PTT #### [facility] [address] [place] [address] Dr. Xiomy Lennon LIPASEon 03-26-2022 Lipase [Catalytic activity/Vol] 92.0 U/L Normal 73.0-393.0 [facility] Comment on above: Performed By: #### P T, PTT #### [facility] [address] [place] [address] Dr. Xiomy Lennon PROF 14(COMP METB)on 022 Albumin [Mass/Vol] 3.6 g/dL Normal 3.4-5.0 [facility] Comment on above: Performed By: #### P T, PTT #### [facility] [address] [place] [address] Dr. Xiomy Lennon Albumin/Globulin [Mass ratio] 0.7 {ratio} Normal [facility] Comment on above: Performed By: #### P T, PTT #### [facility] [address] [place] [address] Dr. Xiomy Lennon ALP [Catalytic activity/Vol] 78 U/L Normal 46-116 [facility] Comment on above: Performed By: #### P T, PTT #### [facility] [address] [place] [address] Dr. Xiomy Lennon ALT [Catalytic activity/Vol] 25 U/L Normal 14-59 [facility] Comment on above: Performed By: #### P T, PTT #### [facility] [address] [place] [address] Dr. Xiomy Lennon Anion gap [Moles/Vol] 9.4 mmol/L Normal [facility] Comment on above: Performed By: #### P T, PTT #### [facility] [address] [address] [address] Xiomy Lennon AST [Catalytic activity/Vol] 19 U/L Normal 15-37 [facility] Comment on above: Performed By: #### P T, PTT #### [facility] [address] [address] [address] Xiomy Lennon Bilirubin [Mass/Vol] 0.3 mg/dL Normal 0.2-1.0 [facility] Comment on above: Performed By: #### P T, PTT #### [facility] [address] [address] [address] Xiomy Lennon Calcium [Mass/Vol] 9.9 mg/dL Normal 8.5-10.1 [facility] Comment on above: Performed By: #### P T, PTT #### [facility] [address] [address] [address] Xiomy Lennon Chloride [Moles/Vol] 96 mmol/L Critically low 98-107 [facility] Comment on above: Performed By: #### P T, PTT #### [facility] [address] [address] [address] Xiomy Lennon CO2 [Moles/Vol] 34.6 mmol/L Critically high 21.0-32.0 [facility] Comment on above: Performed By: #### P T, PTT #### [facility] [address] [address] [address] Xiomy Lennon Creatinine [Mass/Vol] 0.93 mg/dL Normal 0.55-1.02 [facility] Comment on above: Performed By: #### P T, PTT #### [facility] [address] [address] [address] Xiomy Lennon EGFR-AF SENEGALESE >60 Normal >=60 [facility] Comment on above: Performed By: #### P T, PTT #### [facility] [address] [address] [address] Xiomy Lennon EGFR-NON AF SENEGALESE >60 Normal >=60 [facility] Comment on above: Performed By: #### P T, PTT #### [facility] [address] [address] [address] Xiomy Lennon Globulin (S) [Mass/Vol] 5.0 g/dL Normal [facility] Comment on above: Performed By: #### P T, PTT #### [facility] [address] [address] [address] Xiomy Lennon Glucose [Mass/Vol] 139 mg/dL Critically high 74-106 [facility] Comment on above: Performed By: #### P T, PTT #### [facility] [address] [address] [address] Xiomy Lennon Potassium [Moles/Vol] 4.0 mmol/L Normal 3.5-5.1 [facility] Comment on above: Performed By: #### P T, PTT #### [facility] [address] [place] [address] Dr. Xiomy Lennon Protein [Mass/Vol] 8.6 g/dL Critically high 6.4-8.2 [facility] Comment on above: Performed By: #### P T, PTT #### [facility] [address] [address] [address] Xiomy Lennon Sodium [Moles/Vol] 136 mmol/L Normal 136-145 [facility] Comment on above: Performed By: #### P T, PTT #### [facility] [address] [address] [address] Xiomy Lennon Urea nitrogen [Mass/Vol] 19.0 mg/dL Critically high 7.0-18.0 [facility] Comment on above: Performed By: #### P T, PTT #### [facility] [address] [address] [address] Xiomy Lennon Urea nitrogen/Creatinine [Mass ratio] 20.4 mg/mg Normal [facility] Comment on above: Performed By: #### P T, PTT #### [facility] [address] [place] [address] Dr. Xiomy Lennon PROTIMEon 03-26-2022 INR Coag (PPP) [Relative time] 0.99 {INR} Normal [facility] Comment on above: Performed By: #### P T, PTT #### [facility] [address] [address] [address] Xiomy Lennon INR GUIDELINES SEE BELOW Normal [facility] Comment on above: Result Comment: NIALL RED INR: 2.0 - 3.0 CONDITIONS NOT LISTED BELOW 2.5 - 3.5 FOR PROSTHETIC HEART VALVE REPLACEMENT 2.5 - 3.5 RECURRENT THROMBOSIS Performed By: #### P T, PTT #### [facility] [address] [address] [address] Xiomy Lennon PT Coag (PPP) [Time] 10.7 s Normal 9.0-11.6 [facility] Comment on above: Performed By: #### P T, PTT #### [facility] [address] [place] [address] Dr. Xiomy Lennon PTTon 03-26-2022 aPTT Coag (Bld) [Time] 26.9 s Normal 22.3-36.2 [facility] Comment on above: Performed By: #### P T, PTT #### [facility] [address] [place] [address] Dr. Xiomy Lennon TROPONIN, HIGH SENSITIVITYon 03-26-2022 HSTROP 8.0 pg/mL Normal 4.0-51.3 [facility] Comment on above: Result Comment: CUT- OFF POINTS HAVE BEEN ESTABLISHED BASED ON THE FOURTH UNIVERSAL DEFINITIONS OF MYOCARDIAL INFARCTION. THE UPPER REFERENCE LIMIT (URL) OF TROPONIN, DEFINED THE 99TH PERCENTILE OF cTnI DISTRIBUTION IN A REFERENCE POPULATION, HAS BEEN CONFIRMED THE DECISION THRESHOLD FOR ID DIAGNOSIS. Performed By: #### P T, PTT #### [facility] [address] [place] [address] Dr. Xiomy Lennon US SINGLE QUAD RT [...] KENDY HERRERA Date: 2022-03-26 19:58 Normal [facility] Cardiovascular Lab Reporton 06-15-2021 Cardiovascular Lab Report [facility] Patient Name: Teresa [facility] Connie MR #: [id number] Department of Physician: Boo Landers M.D. Division of Service Date: 06/15/2021 Cardiology Birthdate: 1965 Adult Cardiovascular Room #: [address] [place] [address] Cardiovascular Laboratory Report IMPRESSIONS: 1. Mild disease [...] management; given mild coronary artery disease, aspirin, pjcybeol-xb-ejvn intensity statin therapy, beta-aleks, and angiotensin-convertin g enzyme inhibitor are indicated. 4. Follow up with nurse raymon Marc in the next 2 to 3 months. 5. Follow up with her family physician as scheduled. PROCEDURES: Ultrasound-guided access to the right common femoral vein, ultrasound-guided access to the right common femoral artery, right heart catheterization, bilateral selective coronary angiography, placement of a 6-Liberian MynxGrip closure device. METHODS: After risks, benefits, [...] femoral vein and artery was obtained. A 6-Liberian 11 cm sheath was placed in each. [...] the procedure. All catheters were removed. A 6-Liberian MynxGrip closure device was deployed per protocol [...] P Marlene Soto M.D. Date Dict: 06/15/2021/10:44 Leesa Soto M.D. Date Trans: 06/15/2021 11:37 Adriana/sofía HAAS_JN:[id number] cc: Toshia Sam, MSN, SCENE PAINTER-C Department Of Surgery [address] [facility] [address] [facility] Vital Signs Date Time Vital Sign Value Performing Clinician Facility 05-29-2025 05:21-0400 Body weight 120.2 kg Marshall Mckeon MD Work Phone: [facility] 05-29-2025 04:26-0400 Diastolic blood pressure 64 mm[Hg] Marshall Mckeon MD Work Phone: [facility] 05-29-2025 04:26-0400 Heart rate 87 /min Marshall Mckeon MD Work Phone: [facility] 05-29-2025 04:26-0400 Inhaled oxygen flow rate 3 L/min Marshall Mckeon MD Work Phone: [facility] 05-29-2025 04:26-0400 Respiratory rate 17 /min Marshall Mckeon MD Work Phone: [facility] 05-29-2025 04:26-0400 SaO2% (BldA) [Mass fraction] 97 % Marshall Mckeon MD Work Phone: [facility] 05-29-2025 04:26-0400 Systolic blood pressure 109 mm[Hg] Marshall Mckeon MD Work Phone: [facility] 05-28-2025 23:39-0400 Body height 175.26 cm Marshall Mckeon MD Work Phone: [facility] 05-28-2025 23:39-0400 Body temperature 98 [degF] Marshall Mckeon MD Work Phone: [facility] 05-28-2025 23:39-0400 Body weight 120.2 kg Marshall Mckeon MD Work Phone: [facility] 05-28-2025 23:39-0400 Diastolic blood pressure 72 mm[Hg] Marshall Mckeon MD Work Phone: [facility] 05-28-2025 23:39-0400 Respiratory rate 17 /min Marshall Mckeon MD Work Phone: [facility] 05-28-2025 23:39-0400 SaO2% (BldA) [Mass fraction] 97 % Marshall Mckeon MD Work Phone: [facility] 05-28-2025 23:39-0400 Systolic blood pressure 131 mm[Hg] Marshall Mckeon MD Work Phone: [facility] 05-28-2025 09:34-0400 Diastolic blood pressure 60 mm[Hg] Brea Zechariahz AFTER SCHOOL COORDINATOR Work Phone: [facility] 05-28-2025 09:34-0400 Systolic blood pressure 92 mm[Hg] Brea Aichholz AFTER SCHOOL COORDINATOR Work Phone: [facility] 05-28-2025 09:02-0400 Body mass index (BMI) [Ratio] 37.18 kg/m2 Brea Aichholz AFTER SCHO[employer] COORDINATOR Work Phone: [facility] 05-28-2025 09:02-0400 Body temperature 98.1 [degF] Brea Angelyhyamilaz AFTER SCHOOL COORDINATOR Work Phone: [facility] 05-28-2025 09:02-0400 Body weight 114.22 kg Brea Aichholz AFTER SCHOOL COORDINATOR Work Phone: [facility] 05-28-2025 09:02-0400 Heart rate 83 /min Brea Aichholz AFTER SCHOOL COORDINATOR Work Phone: [facility] 05-28-2025 09:02-0400 Respiratory rate 20 /min Brea Aichholz AFTER SCHOOL COORDINATOR Work Phone: [facility] 05-28-2025 09:02-0400 SaO2% (BldA) [Mass fraction] 96 % Brea Applez AFTER SCHOOL COORDINATOR Work Phone: [facility] 02-25-2025 09:57-0400 Body mass index (BMI) [Ratio] 37.39 kg/m2 Breaadriana Elaineholz AFTER SCHOOL COORDINATOR Work Phone: [facility] 02-25-2025 09:57-0400 Body temperature 98.1 [degF] Brea Zechariahz AFTER SCHOOL COORDINATOR Work Phone: [facility] 02-25-2025 09:57-0400 Body weight 114.85 kg Brea Cheleholz AFTER SCHOOL COORDINATOR Work Phone: [facility] 02-25-2025 09:57-0400 Diastolic blood pressure 68 mm[Hg] Brea Zechariahz AFTER SCHOOL COORDINATOR Work Phone: [facility] 02-25-2025 09:57-0400 Heart rate 93 /min Brea Zechariahz AFTER SCHOOL COORDINATOR Work Phone: [facility] 02-25-2025 09:57-0400 Respiratory rate 20 /min Brea Cheleholz AFTER SCHOOL COORDINATOR Work Phone: [facility] 02-25-2025 09:57-0400 SaO2% (BldA) [Mass fraction] 92 % Brea Elaineholz AFTER SCHOOL COORDINATOR Work Phone: [facility] 02-25-2025 09:57-0400 Systolic blood pressure 100 mm[Hg] Brea Applez AFTER SCHOOL COORDINATOR Work Phone: [facility] 12-26-2024 09:46-0500 Body height 175.3 cm Brea Cheleholz AFTER SCHOOL COORDINATOR Work Phone: [facility] 12-26-2024 09:46-0500 Body mass index (BMI) [Ratio] 36.59 kg/m2 Brea Cheleholz AFTER SCHOOL COORDINATOR Work Phone: [facility] 12-26-2024 09:46-0500 Body temperature 98.6 [degF] Brea Cheleholz AFTER SCHOOL COORDINATOR Work Phone: [facility] 12-26-2024 09:46-0500 Body weight 112.4 kg Brea Aichholz AFTER SCHOOL COORDINATOR Work Phone: [facility] 12-26-2024 09:46-0500 Diastolic blood pressure 70 mm[Hg] Brea Aichholz AFTER SCHOOL COORDINATOR Work Phone: [facility] 12-26-2024 09:46-0500 Heart rate 112 /min Brea Aichholz AFTER SCHOOL COORDINATOR Work Phone: [facility] 12-26-2024 09:46-0500 Respiratory rate 20 /min Brea Aichholz AFTER SCHOOL COORDINATOR Work Phone: [facility] 12-26-2024 09:46-0500 SaO2% (BldA) [Mass fraction] 94 % Brea Aichholz AFTER SCHOOL COORDINATOR Work Phone: [facility] 12-26-2024 09:46-0500 Systolic blood pressure 108 mm[Hg] Brea Aichholz AFTER SCHOOL COORDINATOR Work Phone: [facility] 12-03-2024 09:03-0500 Body height 175.3 cm Brea Aichholz AFTER SCHOOL COORDINATOR Work Phone: [facility] 12-03-2024 09:03-0500 Body mass index (BMI) [Ratio] 36.68 kg/m2 Brea Aichholz AFTER SCHOOL COORDINATOR Work Phone: [facility] 12-03-2024 09:03-0500 Body temperature 98.49 [degF] Brea Aichholz AFTER SCHOOL COORDINATOR Work Phone: [facility] 12-03-2024 09:03-0500 Body weight 112.67 kg Brea Aichholz AFTER SCHOOL COORDINATOR Work Phone: [facility] 12-03-2024 09:03-0500 Diastolic blood pressure 62 mm[Hg] Brea Aichholz AFTER SCHOOL COORDINATOR Work Phone: [facility] 12-03-2024 09:03-0500 Heart rate 112 /min Brea Aichholz AFTER SCHOOL COORDINATOR Work Phone: [facility] 12-03-2024 09:03-0500 Respiratory rate 20 /min Brea Aichholz AFTER SCHOOL COORDINATOR Work Phone: [facility] 12-03-2024 09:03-0500 SaO2% (BldA) [Mass fraction] 93 % Brea Aichholz AFTER SCHOOL COORDINATOR Work Phone: [facility] 12-03-2024 09:03-0500 Systolic blood pressure 110 mm[Hg] Brea Aichholz AFTER SCHOOL COORDINATOR Work Phone: [facility] 10-29-2024 18:18-0500 SaO2% (BldA) [Mass fraction] 93 % Brea Aichholz AFTER SCHOOL COORDINATOR Work Phone: [facility] 10-29-2024 18:01-0500 Body height 175.3 cm Brea Aichholz AFTER SCHOOL COORDINATOR Work Phone: [facility] 10-29-2024 18:01-0500 Body mass index (BMI) [Ratio] 38.87 kg/m2 Brea Aichholz AFTER SCHOOL COORDINATOR Work Phone: [facility] 10-29-2024 18:01-0500 Body temperature 97.81 [degF] Brea Aichholz AFTER SCHOOL COORDINATOR Work Phone: [facility] 10-29-2024 18:01-0500 Body weight 119.39 kg Brea Aichholz AFTER SCHOOL COORDINATOR Work Phone: [facility] 10-29-2024 18:01-0500 Diastolic blood pressure 68 mm[Hg] Brea Aichholz AFTER SCHOOL COORDINATOR Work Phone: [facility] 10-29-2024 18:01-0500 Heart rate 96 /min Brea Aichholz AFTER SCHOOL COORDINATOR Work Phone: [facility] 10-29-2024 18:01-0500 Respiratory rate 18 /min Brea Aichholz AFTER SCHOOL COORDINATOR Work Phone: [facility] 10-29-2024 18:01-0500 Systolic blood pressure 118 mm[Hg] Brea Aichholz AFTER SCHOOL COORDINATOR Work Phone: [facility] 07-24-2024 09:22-0400 Body height 175.3 cm Breaadriana Applez AFTER SCHOOL COORDINATOR Work Phone: [facility] 07-24-2024 09:22-0400 Body mass index (BMI) [Ratio] 38.45 kg/m2 Breaadriana Elaineholz AFTER SCHOOL COORDINATOR Work Phone: [facility] 07-24-2024 09:22-0400 Body temperature 98.29 [degF] Brea Applez AFTER SCHOOL COORDINATOR Work Phone: [facility] 07-24-2024 09:22-0400 Body weight 118.12 kg Brea Applez AFTER SCHOOL COORDINATOR Work Phone: [facility] 07-24-2024 09:22-0400 Diastolic blood pressure 82 mm[Hg] Brea Applez AFTER SCHOOL COORDINATOR Work Phone: [facility] 07-24-2024 09:22-0400 Heart rate 83 /min Breaadriana Applez AFTER SCHOOL COORDINATOR Work Phone: [facility] 07-24-2024 09:22-0400 Respiratory rate 19 /min Breaadriana Applez AFTER SCHOOL COORDINATOR Work Phone: [facility] 07-24-2024 09:22-0400 SaO2% (BldA) [Mass fraction] 90 % Breaadriana Applez AFTER SCHOOL COORDINATOR Work Phone: [facility] 07-24-2024 09:22-0400 Systolic blood pressure 130 mm[Hg] Breaadriana Applez AFTER SCHOOL COORDINATOR Work Phone: [facility] 07-23-2024 10:37-0400 Body temperature 98.42 [degF] Mariama Barcenas [facility] 07-23-2024 10:37-0400 Diastolic blood pressure 69 mm[Hg] Mariama Barcenas [facility] 07-23-2024 10:37-0400 Heart rate 94 /min Mariama Demboske [facility] 07-23-2024 10:37-0400 Mean blood pressure 81 mm[Hg] Mariama Yuboske [facility] 07-23-2024 10:37-0400 Respiratory rate 16 /min Mariama Yuboske [facility] 07-23-2024 10:37-0400 SaO2% (BldA) [Mass fraction] 92 % Mariama Javedke [facility] 07-23-2024 10:37-0400 Systolic blood pressure 106 mm[Hg] Mariama Yuboske [facility] 01-16-2024 11:17-0400 Body temperature 97.7 [degF] Mariama Barcenas [facility] 01-16-2024 11:17-0400 Diastolic blood pressure 73 mm[Hg] Mariama aBrcenas [facility] 01-16-2024 11:17-0400 Heart rate 109 /min Mariama Barcenas [facility] 01-16-2024 11:17-0400 Mean blood pressure 92 mm[Hg] Mariama Javedke [facility] 01-16-2024 11:17-0400 Respiratory rate 18 /min Mariama Barcenas [facility] 01-16-2024 11:17-0400 SaO2% (BldA) [Mass fraction] 94 % Mariama Yuboske [facility] 01-16-2024 11:17-0400 Systolic blood pressure 130 mm[Hg] Mariama Yuboske [facility] 12-05-2023 08:48-0500 Body height 175.3 cm Brea Aichholz AFTER SCHOOL COORDINATOR Work Phone: [facility] 12-05-2023 08:48-0500 Body mass index (BMI) [Ratio] 37.51 kg/m2 Bera Applesherwin AFTER SCHOOL COORDINATOR Work Phone: [facility] 12-05-2023 08:48-0500 Body temperature 97.11 [degF] Brea Auroxy AFTER SCHOOL COORDINATOR Work Phone: [facility] 12-05-2023 08:48-0500 Body weight 115.21 kg Brea Elainelloyd AFTER SCHOOL COORDINATOR Work Phone: [facility] 12-05-2023 08:48-0500 Diastolic blood pressure 68 mm[Hg] Brea Elainelloyd AFTER SCHOOL COORDINATOR Work Phone: [facility] 12-05-2023 08:48-0500 Heart rate 103 /min Brea Auroxy AFTER SCHOOL COORDINATOR Work Phone: [facility] 12-05-2023 08:48-0500 Respiratory rate 17 /min Brea Ealinelloyd AFTER SCHOOL COORDINATOR Work Phone: [facility] 12-05-2023 08:48-0500 SaO2% (BldA) [Mass fraction] 99 % Brea Elainelloyd AFTER SCHOOL COORDINATOR Work Phone: [facility] 12-05-2023 08:48-0500 Systolic blood pressure 110 mm[Hg] Brea Elainelloyd AFTER SCHOOL COORDINATOR Work Phone: [facility] 09-25-2023 21:50-0500 Diastolic blood pressure 73 mm[Hg] Demond Avni [facility] 09-25-2023 21:50-0500 Heart rate 95 /min Demond Avni [facility] 09-25-2023 21:50-0500 Mean blood pressure 90 mm[Hg] Demond Avni [facility] 09-25-2023 21:50-0500 Respiratory rate 22 /min Demond Avni [facility] 09-25-2023 21:50-0500 SaO2% (BldA) [Mass fraction] 97 % Demond Avni [facility] 09-25-2023 21:50-0500 Systolic blood pressure 123 mm[Hg] Demond Avni [facility] 09-25-2023 20:37-0500 Diastolic blood pressure 77 mm[Hg] Demond Avni [facility] 09-25-2023 20:37-0500 Heart rate 94 /min Demond Avni [facility] 09-25-2023 20:37-0500 Mean blood pressure 99 mm[Hg] Demond Avni [facility] 09-25-2023 20:37-0500 Respiratory rate 18 /min Demond Avni [facility] 09-25-2023 20:37-0500 SaO2% (BldA) [Mass fraction] 97 % Demond Avni [facility] 09-25-2023 20:37-0500 Systolic blood pressure 144 mm[Hg] Demond Avni [facility] 09-25-2023 19:50-0500 Diastolic blood pressure 83 mm[Hg] Demond Avni [facility] 09-25-2023 19:50-0500 Heart rate 100 /min Demond Avni [facility] 09-25-2023 19:50-0500 Mean blood pressure 104 mm[Hg] Demond Avni [facility] 09-25-2023 19:50-0500 Respiratory rate 22 /min Demond Avni [facility] 09-25-2023 19:50-0500 SaO2% (BldA) [Mass fraction] 98 % Demond Avni [facility] 09-25-2023 19:50-0500 Systolic blood pressure 147 mm[Hg] Demond Holly [facility] 09-25-2023 18:23-0500 Body temperature 98.24 [degF] Demond Holly [facility] 09-25-2023 18:23-0500 Heart rate 111 /min Demond Holly [facility] 09-25-2023 18:23-0500 Respiratory rate 24 /min Demond Holly [facility] 09-08-2023 20:26-0500 Body temperature 98.06 [degF] Ramses Reginaldo [facility] 09-08-2023 20:26-0500 Diastolic blood pressure 76 mm[Hg] Ramses Reginaldo [facility] 09-08-2023 20:26-0500 Heart rate 81 /min Ramses Reginaldo [facility] 09-08-2023 20:26-0500 Mean blood pressure 87 mm[Hg] Ramses Reginaldo [facility] 09-08-2023 20:26-0500 Respiratory rate 20 /min Ramses Reginaldo [facility] 09-08-2023 20:26-0500 SaO2% (BldA) [Mass fraction] 99 % Ramses Reginaldo [facility] 09-08-2023 20:26-0500 Systolic blood pressure 110 mm[Hg] Ramses Reginaldo [facility] 09-08-2023 19:28-0500 Diastolic blood pressure 61 mm[Hg] Ramses Hair [facility] 09-08-2023 19:28-0500 Heart rate 86 /min Ramsesmaximilian Hair [facility] 09-08-2023 19:28-0500 Mean blood pressure 82 mm[Hg] Ramses Hair [facility] 09-08-2023 19:28-0500 Respiratory rate 18 /min Ramses Hair [facility] 09-08-2023 19:28-0500 SaO2% (BldA) [Mass fraction] 99 % Ramses Hair [facility] 09-08-2023 19:28-0500 Systolic blood pressure 123 mm[Hg] Ramses Hair [facility] 09-08-2023 18:00-0500 Diastolic blood pressure 75 mm[Hg] Ramses Hair [facility] 09-08-2023 18:00-0500 Heart rate 92 /min Ramses Hair [facility] 09-08-2023 18:00-0500 SaO2% (BldA) [Mass fraction] 91 % Ramses Hair [facility] 09-08-2023 18:00-0500 Systolic blood pressure 124 mm[Hg] Ramses Hair [facility] 09-08-2023 16:33-0500 Body temperature 98.24 [degF] Ramses Hair [facility] 09-08-2023 16:33-0500 Heart rate 104 /min Ramses Reginaldo [facility] 09-08-2023 16:33-0500 Respiratory rate 24 /min Ramses Reginaldo [facility] 07-19-2023 09:00-0400 Blood Pressure Location d TraceNeelima [facility] 07-19-2023 09:00-0400 Body temperature 98.06 [degF] Mhd Al-Marrawi [facility] 07-19-2023 09:00-0400 Diastolic blood pressure 72 mm[Hg] Mhd Al-Marrawi [facility] 07-19-2023 09:00-0400 Heart rate 79 /min Mhd Al-Marrawi [facility] 07-19-2023 09:00-0400 Mean blood pressure 88 mm[Hg] d Al-Marrawi [facility] 07-19-2023 09:00-0400 Respiratory rate 18 /min d Al-Marrawi [facility] 07-19-2023 09:00-0400 SaO2% (BldA) [Mass fraction] 93 % d Al-Marrawi [facility] 07-19-2023 09:00-0400 Systolic blood pressure 120 mm[Hg] d Al-Marrawi [facility] 06-28-2023 10:00-0400 [facility] 10:00-0400 Body temperature 98.06 [degF] [facility] 10:00-0400 Diastolic blood pressure 69 mm[Hg] Ezekielaashish Christian [facility] 06-28-2023 10:00-0400 Heart rate 101 /min Ezekiel Christian [facility] 06-28-2023 10:00-0400 Mean blood pressure 90 mm[Hg] Ezekiel Christian [facility] 06-28-2023 10:00-0400 Respiratory rate 16 /[facility] 10:00-0400 SaO2% (BldA) [Mass fraction] 92 % Ezekiel Christian [facility] 06-28-2023 10:00-0400 Systolic blood pressure 133 mm[Hg] Ezekiel Christian [facility] 06-17-2023 17:06-0400 Hourly Rounding Mbanefo OJUKWU [facility] 06-17-2023 17:06-0400 Promise to Return Mbanefo OJUKWU [facility] 06-17-2023 16:00-0400 Hourly Rounding Mbanefo OJUKWU [facility] 06-17-2023 16:00-0400 Promise to Return Mbanefo OJUKWU [facility] 06-17-2023 15:42-0400 Heart rate 82 /min Mbanefo OJUKWU [facility] 06-17-2023 15:42-0400 SaO2% (BldA) [Mass fraction] 95 % Mbanefo OJUKWU [facility] 06-17-2023 15:42-0400 Diastolic blood pressure 64 mm[Hg] Mbanefo OJUKWU [facility] 06-17-2023 15:42-0400 Mean blood pressure 79 mm[Hg] Mbanefo OJUKWU [facility] 06-17-2023 15:42-0400 Systolic blood pressure 109 mm[Hg] Mbanefo OJUKWU [facility] 06-17-2023 15:41-0400 Body temperature 97.88 [degF] Mbanefo OJUKWU [facility] 06-17-2023 15:05-0400 Hourly Rounding Mbanefo OJUKWU [facility] 06-17-2023 15:05-0400 Promise to Return Mbanefo OJUKWU [facility] 06-17-2023 14:00-0400 SaO2% (BldA) [Mass fraction] 96 % Mbanefo OJUKWU [facility] 06-17-2023 12:53-0400 Heart rate 87 /min Mbanefo OJUKWU [facility] 06-17-2023 12:53-0400 Respiratory rate 18 /min Mbanefo OJUKWU [facility] 06-17-2023 12:48-0400 SaO2% (BldA) [Mass fraction] 95 % Mbanefo OJUKWU [facility] 06-17-2023 12:44-0400 Heart rate 86 /min Mbanefo OJUKWU [facility] 06-17-2023 12:44-0400 Respiratory rate 18 /min Mbanefo OJUKWU [facility] 06-17-2023 12:00-0400 Diastolic blood pressure 66 mm[Hg] Mbanefo OJUKWU [facility] 06-17-2023 12:00-0400 Mean blood pressure 86 mm[Hg] Mbanefo OJUKWU [facility] 06-17-2023 12:00-0400 Systolic blood pressure 125 mm[Hg] Mbanefo OJUKWU [facility] 06-17-2023 09:19-0400 Diastolic blood pressure 71 mm[Hg] Mbanefo OJUKWU [facility] 06-17-2023 09:19-0400 Systolic blood pressure 134 mm[Hg] Mbanefo OJUKWU [facility] 06-17-2023 09:16-0400 gluc 173 mg/dL Mbanefo OJUKWU [facility] 06-17-2023 07:33-0400 Mean blood pressure 90 mm[Hg] Mbanefo OJUKWU [facility] 06-17-2023 07:33-0400 Body temperature 97.88 [degF] Mbanefo OJUKWU [facility] 06-17-2023 04:00-0400 Blood Pressure Location Mbanefo OJUKWU [facility] 06-17-2023 04:00-0400 Body temperature 98.24 [degF] Mbanefo OJUKWU [facility] 06-17-2023 04:00-0400 Mean blood pressure 91 mm[Hg] Mbanefo OJUKWU [facility] 06-17-2023 00:00-0400 Body temperature 97.88 [degF] Mbanefo OJUKWU [facility] 06-16-2023 22:48-0400 Blood Pressure Location Mbanefo OJUKWU [facility] 06-16-2023 22:48-0400 Body temperature 98.24 [degF] Mbanefo OJUKWU [facility] 06-16-2023 22:48-0400 Heart rate 80 /min Mbanefo OJUKWU [facility] 06-16-2023 21:42-0400 Mean blood pressure 76 mm[Hg] Mbanefo OJUKWU [facility] 06-16-2023 21:42-0400 Respiratory rate 18 /min Mbanefo OJUKWU [facility] 06-16-2023 20:45-0400 Mean blood pressure 95 mm[Hg] Mbanefo OJUKWU [facility] 06-16-2023 20:45-0400 Respiratory rate 18 /min Mbanefo OJUKWU [facility] 06-16-2023 19:39-0400 Respiratory rate 18 /min Mbanefo OJUKWU [facility] 06-16-2023 15:51-0400 Heart rate 107 /min Mbanefo OJUKWU [facility] 06-16-2023 15:51-0400 Respiratory rate 22 /min Mbanefo OJUKWU [facility] Encounters Encounter Date Encounter Type Care Provider Facility Start: 06-05-2025 End: 06-05-2025 Clinisync Result Encounter Brea Jj AFTER SCHOOL COORDINATOR Work Phone: [facility] External Department Unsolicited Start: 06-05-2025 End: 06-05-2025 Clinisync Result Encounter Brea Jj AFTER SCHOOL COORDINATOR Work Phone: [facility] External Department Unsolicited Start: 06-05-2025 End: 06-05-2025 Refill Breaadriana Jj AFTER SCHOOL COORDINATOR Work Phone: [facility] Comment on above: Hypomagnesemia Start: 05-30-2025 End: 05-30-2025 Refill Brea Анна AFTER SCHOOL COORDINATOR Work Phone: [facility] Comment on above: Hypomagnesemia (Prim fay Dx); LAINA (acute kidney injury) Start: 05-29-2025 End: 05-29-2025 Clinisync Result Encounter Brea Jj NP Work Phone: [facility] External Department Unsolicited Start: 05-29-2025 End: 05-29-2025 Clinisync Result Encounter Brea Jj AFTER SCHOOL COORDINATOR Work Phone: [facility] External Department Unsolicited Start: 05-28-2025 End: 05-29-2025 Evaluation and management of inpatient Marshall Mckeon MD -[facility] Work Phone: Start: 05-28-2025 End: 05-28-2025 Bamboo flowsheet Brea Jj AFTER SCHOOL COORDINATOR Work Phone: [facility] Start: 05-28-2025 End: 05-29-2025 Bamboo flowsheet Brea Jj AFTER SCHOOL COORDINATOR Work Phone: [facility] Start: 05-28-2025 End: 05-28-2025 Clinisync Result Encounter Brea Jj AFTER SCHOOL COORDINATOR Work Phone: [facility] External Department Unsolicited Start: 05-28-2025 End: 05-29-2025 External Result Encounter Brea Jj AFTER SCHOOL COORDINATOR Work Phone: [facility] External Department Unsolicited Start: 05-28-2025 End: 05-28-2025 ambulatory Marshall Mckeon MD Work Phone: [facility] Work Phone: Start: 05-28-2025 End: 05-28-2025 Departed Referred Brea Jj AFTER SCHOOL COORDINATOR-C [facility] Start: 05-28-2025 End: 05-28-2025 Office outpatient visit 25 minutes Brea Jj AFTER SCHOOL COORDINATOR Work Phone: [facility] Comment on above: Vomiting and diarrhe a (Primary Dx); Restless leg syndrome; ROLANDO (obstructive sleep apnea); Essential (primary) hypertension ; Gastroesophageal reflux disease without esophagitis; Edema of both lower extremities; Type 2 diabetes mellitus without complication, without long-term current use of insulin ([facility]); Class 2 severe obesity due to excess calories with serious comorbidity and body mass index (BMI) of 37.0 to 37.9 in adult ([facility]); Mixed hyperlipidemia ; Anxiety and depression ; Primary hypertension Start: 05-28-2025 End: 05-28-2025 ambulatory BREA AICHHOLZ Not Available Start: 05-10-2025 End: 05-10-2025 Refill Brea Aichholz AFTER SCHOOL COORDINATOR Work Phone: [facility] Comment on above: Anxiety and depressi on ; Restless leg syndrome; Other insomnia Start: 04-30-2025 End: 04-30-2025 Clinisync Result Encounter Generic External Data Provider [facility] External Department Unsolicited Start: 04-30-2025 End: 04-30-2025 Clinisync Result Encounter Generic External Data Provider [facility] External Department Unsolicited Start: 04-17-2025 End: 04-17-2025 Clinisync Result Encounter Brea Aicheatherholz AFTER SCHOOL COORDINATOR Work Phone: [facility] External Department Unsolicited Start: 04-17-2025 End: 04-17-2025 Clinisync Result Encounter Brea Aichholz AFTER SCHOOL COORDINATOR Work Phone: [facility] External Department Unsolicited Start: 04-04-2025 End: 04-04-2025 Refill Brea Aichholz AFTER SCHOOL COORDINATOR Work Phone: [facility] Comment on above: Vitamin deficiency ( Primary Dx) Start: 03-28-2025 End: 03-28-2025 ambulatory AB [facility] Start: 03-06-2025 End: 03-06-2025 Refill Brea Aichholz AFTER SCHOOL COORDINATOR Work Phone: [facility] Comment on above: Osteopenia after men opause (Primary Dx) Start: 02-25-2025 End: 02-25-2025 Bamboo flowsheet Brea Aichholz AFTER SCHOOL COORDINATOR Work Phone: [facility] Start: 02-25-2025 End: 02-25-2025 Bamboo flowsheet Brea Elainelloyd AFTER SCHOOL COORDINATOR Work Phone: [facility] Start: 02-25-2025 End: 02-25-2025 Patient encounter status Brea Jj AFTER SCHOOL COORDINATOR Work Phone: [facility] Start: 02-25-2025 End: 02-25-2025 Periodic preventive med est patient 40-64yrs Brea Applesherwin AFTER SCHOOL COORDINATOR Work Phone: [facility] Comment on above: Encounter for [facility] examination in adult (Primary Dx); Essential (primary) hypertension (CMS/HCC); Gastroesophageal reflux disease without esophagitis; Type 2 diabetes mellitus without complication, without long-term current use of insulin; Iron deficiency anemia, unspecified iron deficiency anemia type; Anxiety and depression (CMS/HCC); Mixed hyperlipidemia (CMS/HCC); Edema of both lower extremities; Restless leg syndrome; Primary hypertension (CMS/HCC); Other insomnia; COPD exacerbation (CMS/HCC) Start: 02-25-2025 End: 02-25-2025 ambulatory BREAAdriana ELAINEHOLZ Not Available Start: 02-06-2025 End: 02-06-2025 Refill Brea Cheleyamilaz AFTER SCHOOL COORDINATOR Work Phone: [facility] Comment on above: Edema of both lower extremities (Primary Dx) Start: 01-28-2025 End: 01-28-2025 Refill Brea Cheleholz AFTER SCHOOL COORDINATOR Work Phone: [facility] Comment on above: Anxiety and depressi on (CMS/HCC) Start: 01-14-2025 End: 01-29-2025 Pre-admission assessment Briseno Talal Sarmini [facility] Start: 01-14-2025 End: 01-14-2025 ambulatory Briseno Talal Sarmini Facility:[facility] Start: 12-31-2024 End: 12-31-2024 Bamboo flowsheet Ladonna Bang [employer] Work Phone: [facility] Start: 12-31-2024 End: 12-31-2024 Bamboo flowsheet Ladonna Wright Felter [employer] Work Phone: [facility] Start: 12-31-2024 End: 12-31-2024 Refill Brea Jj AFTER SCHOOL COORDINATOR Work Phone: [facility] Comment on above: Edema of both lower extremities (Primary Dx) Start: 12-31-2024 End: 12-31-2024 Office outpatient visit 15 minutes Ladonna Wright Felter [employer] Work Phone: [facility] Comment on above: Other atopic dermati tis Start: 12-31-2024 End: 12-31-2024 ambulatory LADONNA Wright FELTER Not Available Start: 12-26-2024 End: 12-26-2024 Office outpatient visit 25 minutes Brea Jj AFTER SCHOOL COORDINATOR [facility] Comment on above: Irritable bowel synd trinity with diarrhea (Primary Dx); Centrilobular emphysema (CMS/HCC); Chronic respiratory failure with hypoxia (CMS/HCC); Essential (primary) hypertension (CMS/HCC); Gastroesophageal reflux disease without esophagitis; Class 2 severe obesity due to excess calories with serious comorbidity and body mass index (BMI) of 37.0 to 37.9 in adult (CMS/HCC); Occult blood positive stool; Tobacco dependence syndrome; Anxiety and depression (CMS/HCC) Start: 12-26-2024 End: 12-26-2024 ambulatory BREA JJ [facility] Start: 12-25-2024 End: 12-25-2024 Orders Only Brea Jj AFTER SCHOOL COORDINATOR Work Phone: [facility] Comment on above: Diarrhea, unspecifie d type (Primary Dx); Occult blood positive stool; Weight loss, unintentional Start: 12-21-2024 End: 12-21-2024 Clinisync Result Encounter Brea Jj AFTER SCHOOL COORDINATOR Work Phone: [facility] External Department Unsolicited Start: 12-21-2024 End: 12-21-2024 Clinisync Result Encounter Brea Jj AFTER SCHOOL COORDINATOR Work Phone: [facility] External Department Unsolicited Start: 12-10-2024 End: 12-10-2024 Bamboo flowsheet Ladonna A Felter [employer] Work Phone: [facility] Start: 12-10-2024 End: 12-10-2024 Bamboo flowsheet Ladonna A Felter [employer] Work Phone: [facility] Start: 12-10-2024 End: 12-10-2024 Office outpatient new 45 minutes Ladonna A Felter [employer] Work Phone: [facility] Comment on above: Other atopic dermati tis; Lichen simplex chronicus Start: 12-10-2024 End: 12-10-2024 ambulatory LADONNA A FELTER Not Available Start: 12-05-2024 End: 12-05-2024 Refill Breaadriana Jj AFTER SCHOOL COORDINATOR Work Phone: [facility] Comment on above: Arthritis (Primary D x) Start: 12-04-2024 End: 12-04-2024 Clinisync Result Encounter Brea Jj AFTER SCHOOL COORDINATOR Work Phone: [facility] External Department Unsolicited Start: 12-04-2024 End: 12-04-2024 Clinisync Result Encounter Brea Анна AFTER SCHOOL COORDINATOR Work Phone: [facility] External Department Unsolicited Start: 12-03-2024 End: 12-03-2024 Bamboo flowsheet Brea Анна AFTER SCHOOL COORDINATOR Work Phone: [facility] Start: 12-03-2024 End: 12-03-2024 Bamboo flowsheet Brea Анна AFTER SCHOOL COORDINATOR Work Phone: [facility] Start: 12-03-2024 End: 12-03-2024 Refill Brea Zechariahz AFTER SCHOOL COORDINATOR Work Phone: [facility] Comment on above: Anxiety and depressi on (CMS/HCC); Restless leg syndrome; Other insomnia Start: 12-03-2024 End: 12-03-2024 Office outpatient visit 25 minutes Breaadriana Jj AFTER SCHOOL COORDINATOR Work Phone: [facility] Comment on above: Weight loss, uninten tional (Primary Dx); Chronic respiratory failure with hypoxia ([facility]); Morbid (severe) obesity due to excess calories ([facility]); Essential (primary) hypertension ([facility]); Class 2 severe obesity due to excess calories with serious comorbidity and body mass index (BMI) of 37.0 to 37.9 in adult ([facility]); Rash; Tobacco dependence syndrome; Anxiety and depression ([facility]); Mixed hyperlipidemia ([facility]); Iron deficiency anemia, unspecified iron deficiency anemia type; Restless leg syndrome; Primary hypertension ([facility]); Gastroesophageal reflux disease without esophagitis; Type 2 diabetes mellitus without complication, without long-term current use of insulin ([facility] [facility] Edema of both lower extremities; Nausea and vomiting, unspecified vomiting type; Diarrhea, unspecified type Start: 12-03-2024 End: 12-03-2024 ambulatory BREA AICHHOLZ Not Available Start: 10-29-2024 End: 10-29-2024 Office outpatient visit 25 minutes Breaadriana Jj AFTER SCHOOL COORDINATOR Work Phone: [facility] Comment on above: Rash (Primary Dx); Essential (primary) hypertension ([facility]); Edema of both lower extremities; Class 2 severe obesity due to excess calories with serious comorbidity and body mass index (BMI) of 37.0 to 37.9 in adult ([facility]); ROLANDO (obstructive sleep apnea); Type 2 diabetes mellitus without complication, without long-term current use of insulin ([facility]); Gastroenteritis; Iron deficiency anemia, unspecified iron deficiency anemia type Start: 10-29-2024 End: 10-29-2024 ambulatory BREA AICHHOLZ Not Available Start: 10-04-2024 End: 10-04-2024 Refill Brea Aichholz AFTER SCHOOL COORDINATOR Work Phone: [facility] Comment on above: Gastroesophageal ref lux disease without esophagitis Start: 09-11-2024 End: 09-11-2024 Refill Gunjan Freed MA [facility] Comment on above: Mixed hyperlipidemia (CMS/HCC) Start: 09-06-2024 End: 09-06-2024 Refill Brea Aichholz AFTER SCHOOL COORDINATOR Work Phone: [facility] Comment on above: Osteopenia after men opause (Primary Dx) Start: 08-02-2024 End: 08-03-2024 Refill Brea Aichholz AFTER SCHOOL COORDINATOR Work Phone: [facility] Comment on above: Type 2 diabetes demetrius itus without complication, without long- term current use of insulin (CMS/HCC) (Primary Dx); Atherosclerosis of aorta (CMS/HCC) Start: 07-24-2024 End: 07-24-2024 Bamboo flowsheet Brea Aichholz AFTER SCHOOL COORDINATOR Work Phone: [facility] Start: 07-24-2024 End: 07-24-2024 Bamboo flowsheet Brea Aichholz AFTER SCHOOL COORDINATOR Work Phone: [facility] Start: 07-24-2024 End: 07-24-2024 Office outpatient visit 25 minutes Brea Aichholz AFTER SCHOOL COORDINATOR Work Phone: [facility] Comment on above: Anxiety and depressi on (CMS/HCC) (Primary Dx); Mixed hyperlipidemia (CMS/HCC); Restless leg syndrome; Primary hypertension (CMS/HCC); Type 2 diabetes mellitus without complication, without long-term current use of insulin (CMS/HCC); Other insomnia Start: 07-24-2024 End: 07-24-2024 ambulatory BREA AICHHOLZ Not Available Start: 07-23-2024 End: 07-23-2024 ambulatory Mariama Barcenas [facility] Start: 07-23-2024 End: 07-23-2024 Patient encounter procedure Mariama Barcenas [facility] Start: 07-16-2024 End: 07-16-2024 ambulatory Mariama Barcenas [facility] Start: 07-16-2024 End: 07-16-2024 Patient encounter procedure Mariama Barcenas [facility] Start: 07-05-2024 End: 07-06-2024 Refill Brea Aichholz AFTER SCHOOL COORDINATOR Work Phone: [facility] Comment on above: Gastroesophageal ref lux disease without esophagitis Start: 01-16-2024 End: 01-16-2024 ambulatory Mariama Barcenas [facility] Start: 01-16-2024 End: 01-16-2024 Patient encounter procedure Mariama Barcenas [facility] Start: 01-09-2024 End: 01-09-2024 ambulatory MD Roby Bob Facility[facility] Start: 01-09-2024 End: 01-09-2024 Patient encounter procedure Roby Bob [facility] Start: 12-08-2023 Refill Brea Aichholz AFTER SCHOOL COORDINATOR Work Phone: [facility] Comment on above: Anxiety and depressi on (CMS/HCC) (Primary Dx); Type 2 diabetes mellitus without complication, without long-term current use of insulin (CMS/HCC); Arthritis Start: 12-05-2023 End: 12-05-2023 Office outpatient visit 25 minutes Brea Aichholz AFTER SCHOOL COORDINATOR Work Phone: [facility] Comment on above: Other insomnia (Prim fay Dx); ROLANDO (obstructive sleep apnea); COPD mixed type (CMS/HCC); Tobacco dependence syndrome; BMI 37.0-37.9, adult; Anxiety and depression (CMS/HCC); Restless leg syndrome Start: 09-25-2023 End: 09-25-2023 Emergency department patient visit Demond Holly [facility] Start: 09-08-2023 End: 09-08-2023 Emergency department patient visit Ramses Hair [facility] Start: 07-19-2023 End: 07-19-2023 Patient encounter procedure Mhd Ryan Bob [facility] Start: 06-28-2023 End: 06-28-2023 Patient encounter procedure Ezekiel Christian [facility] Start: 06-16-2023 End: 06-17-2023 Observation Alex BARRIENTSO [facility] Start: 02-23-2023 End: 02-23-[address] MARIE CARVAJAL . Facility:[facility] Start: 02-01-2023 End: 02-02-2023 ambulatory CORRINA Dorman Facility:[facility] Start: 01-12-2023 End: 01-13-2023 ambulatory FINISHING TRIMMER BREA AICHHOLZ Facility:[facility] Start: 01-03-2023 End: 01-04-2023 ambulatory FINISHING TRIMMER BREA AICHHOLZ Facility:[facility] Start: 11-04-2022 End: 11-05-2022 ambulatory FINISHING TRIMMER BREA AICHHOLZ Facility:[facility] Start: 07-28-2022 End: 07-29-2022 ambulatory FINISHING TRIMMER BREA AICHHOLZ Facility:[facility] Start: 04-30-2022 End: 05-01-2022 ambulatory FINISHING TRIMMER BREA AICHHOLZ Facility:[facility] Start: 03-26-2022 End: 03-26-2022 ambulatory FINISHING TRIMMER BREA AICHHOLZ Facility:[facility] Start: 06-15-2021 End: 06-16-2021 ambulatory TOSHIA SAM Facility:[facility] Procedures Date Procedure Procedure Detail Performing Clinician Start: 06-05-2025 ALL BASIC METABOLIC PANEL Brea Aichholz AFTER SCHOOL COORDINATOR Work Phone: Start: 06-05-2025 ALL MAGNESIUM Brea Aich lloyd AFTER SCHOOL COORDINATOR Work Phone: Start: 07-30-2025 ALL CBC WITH AUTO DIFF Brea Aichholz AFTER SCHOOL COORDINATOR Work Phone: Start: 05-28-2025 ALL CBC WITH AUTO DIFF Brea Aichholz AFTER SCHOOL COORDINATOR Work Phone: Start: 05-28-2025 Culture bacterial quanttative colony count urine Brea Aichholz AFTER SCHOOL COORDINATOR Work Phone: Start: 05-28-2025 Hemoglobin glycosylated a1c Brea Aichholz AFTER SCHOOL COORDINATOR Work Phone: Start: 04-30-2025 CA ECHO DOPPLER COMPLETE Generic External Data Provider Start: 04-17-2025 MM TOMOSYNTHESIS SCR EENING BI Brea Aichholz AFTER SCHOOL COORDINATOR Work Phone: Start: 04-17-2025 Mammography Brea Aichh olz AFTER SCHOOL COORDINATOR Work Phone: Start: 02-25-2025 Hemoglobin glycosylated a1c Brea Aichholz AFTER SCHOOL COORDINATOR Work Phone: Start: 12-21-2024 OCCULT BLOOD* Brea Aich lloyd AFTER SCHOOL COORDINATOR Work Phone: Start: 12-04-2024 ALL CBC WITH AUTO DIFF Brea Aichholz AFTER SCHOOL COORDINATOR Work Phone: Start: 10-29-2024 Hemoglobin glycosylated a1c Brea Aichholz AFTER SCHOOL COORDINATOR Work Phone: Start: 04-16-2024 Mammography Brea Aichh olz AFTER SCHOOL COORDINATOR Work Phone: Start: 04-14-2023 Mammography Brea Aichh olz AFTER SCHOOL COORDINATOR Work Phone: Start: 03-31-2020 Colonoscopy Brea Aichh olz AFTER SCHOOL COORDINATOR Work Phone: Start: 05-05-1987 section Elijah Christian Start: 06-20-1984 section Elijah Christian Cyst (disorder) Ezekiel solorzano Comment on above: Removal of cyst of r ight foot. Knee region structur e (body structure) Ezekiel Christian Comment on above: surgery Plan of Treatment Date Care Activity Detail Author Start: 03-31-2030 Screening for malignant neoplasm of colon [facility] Start: 06-23-2028 Screening for malignant neoplasm of cervix [facility] Start: 01-01-2027 Glaucoma screening Diabetes: Retinopathy Screening [facility] Start: 04-17-2026 Screening for malignant neoplasm of breast Mammogram [facility] Start: 11-28-2025 Hemoglobin A1c measurement Diabetes: Hemoglobin A1C [facility] Start: 08-28-2025 End: 08-28-2025 Patient encounter procedure 08/28/2025 9:00 AM EDT Office Visit [facility] [address] [place] [address] Brea Jj, AFTER SCHOOL COORDINATOR [address] [place] [address] [facility] Start: 08-27-2025 Hemoglobin A1c measurement Diabetes: Hemoglobin A1C [facility] Start: 07-01-2025 Influenza vaccination Influenza Vaccine (#1) [facility] Start: 06-26-2025 End: 06-05-2026 Magnesium [Mass/volume] in Serum or Plasma Magnesium Lab Routine Hypomagnesemia Expected: 06/26/2025 (Approximate), Expires: 06/05/2026 [facility] Work Phone: Comment on above: Expected: 06/26/2025 (Approximate), Expi res: 06/05/2026 Start: 06-06-2025 End: 06-10-2026 Basic metabolic 1998 panel - Serum or Plasma Basic metabolic panel Lab Routine LAINA (acute kidney injury) Expected: 06/06/2025 (Approximate), Expires: 06/10/2026 [facility] Work Phone: Comment on above: Expected: 06/06/2025 (Approximate), Expi res: 06/10/2026 Start: 06-06-2025 End: 05-30-2026 Magnesium [Mass/volume] in Serum or Plasma Magnesium Lab Routine Hypomagnesemia LAINA (acute kidney injury) Expected: 06/06/2025 (Approximate), Expires: 05/30/2026 [facility] Comment on above: Expected: 06/06/2025 (Approximate), Expi res: 05/30/2026 Start: 05-28-2025 Hospital admission [facility] Start: 05-28-2025 [facility] Start: 05-28-2025 End: 05-28-2026 Bacteria identified in Urine by Culture [facility] Comment on above: Expected: 05/28/2025 (Approximate), Expi res: 05/28/2026 Start: 05-28-2025 End: 05-28-2026 CBC W Auto Differential panel - Blood CBC and differential Lab Routine ROLANDO (obstructive sleep apnea) Gastroesophageal reflux disease without esophagitis Expected: 05/28/2025 (Approximate), Expires: 05/28/2026 [facility] Work Phone: Comment on above: Expected: 05/28/2025 (Approximate), Expi res: 05/28/2026 Start: 05-28-2025 End: 05-28-2026 Comprehensive metabolic 2000 panel - Serum or Plasma Comprehensive metabolic panel Lab Routine Essential (primary) hypertension Edema of both lower extremities Type 2 diabetes mellitus without complication, without long-term current use of insulin (HCC) Mixed hyperlipidemia Expected: 05/28/2025 (Approximate), Expires: 05/28/2026 [facility] Comment on above: Expected: 05/28/2025 (Approximate), Expi res: 05/28/2026 Start: 05-28-2025 End: 05-28-2026 Lipid 1996 panel - Serum or Plasma Lipid panel Lab Routine Mixed hyperlipidemia Expected: 05/28/2025 (Approximate), Expires: 05/28/2026 [facility] Comment on above: Expected: 05/28/2025 (Approximate), Expi res: 05/28/2026 Start: 05-28-2025 End: 05-28-2026 Microalbumin/Creatinine panel in random Urine Microalbumin / creatinine, urine ratio Lab Routine Essential (primary) hypertension Type 2 diabetes mellitus without complication, without long-term current use of insulin (HCC) Expected: 05/28/2025 (Approximate), Expires: 05/28/2026 [facility] Comment on above: Expected: 05/28/2025 (Approximate), Expi res: 05/28/2026 Start: 05-28-2025 End: 05-28-2026 Thyrotropin [Units/volume] in Serum or Plasma TSH Lab Routine Anxiety and depression Expected: 05/28/2025 (Approximate), Expires: 05/28/2026 [facility] Comment on above: Expected: 05/28/2025 (Approximate), Expi res: 05/28/2026 Start: 05-28-2025 End: 05-28-2026 Urinalysis complete panel - Urine Urinalysis with reflex microscopic (clean catch) Lab Routine Essential (primary) hypertension Type 2 diabetes mellitus without complication, without long-term current use of insulin ([facility]) Expected: 05/28/2025 (Approximate), Expires: 05/28/2026 [facility] Comment on above: Expected: 05/28/2025 (Approximate), Expi res: 05/28/2026 Start: 05-28-2025 Urine culture [facility] Start: 05-28-2025 End: 05-28-2025 Patient encounter procedure [facility] Comment on above: Restless leg syndrome (Primary Dx); ROLANDO (obstructive sleep apnea); Essential (primary) hypertension ; Gastroesophageal reflux disease without esophagitis; Edema of both lower extremities; Type 2 diabetes mellitus without complication, without long-term current use of insulin ([facility]); Class 2 severe obesity due to excess calories with serious comorbidity and body mass index (BMI) of 37.0 to 37.9 in adult ([facility]); Mixed hyperlipidemia ; Anxiety and depression Start: 04-29-2025 Hemoglobin A1c measurement Diabetes: Hemoglobin A1C [facility] Start: 04-16-2025 Screening for malignant neoplasm of breast Mammogram [facility] Start: 03-15-2025 Urine screening for protein Diabetes: Urine Protein Screening [facility] Start: 02-25-2025 End: 02-25-2025 Patient encounter procedure [facility] Comment on above: Essential (primary) hypertension (CMS/HC C) (Primary Dx); Gastroesophageal reflux disease without esophagitis; Type 2 diabetes mellitus without complication, without long-term current use of insulin; Iron deficiency anemia, unspecified iron deficiency anemia type; Anxiety and depression ([facility]CC) Start: 01-29-2025 Glaucoma screening Diabetes: Retinopathy Screening [facility] Start: 01-29-2025 End: 01-29-2025 Patient encounter procedure 01/29/2025 9:00 AM EDT Office Visit [facility] [address] [place] [address] Brea Jj, TOBIAS [address] [place] [id number] [facility] Start: 12-31-2024 End: 12-31-2024 Patient encounter procedure [facility] Comment on above: Arrived Start: 12-26-2024 End: 12-26-2024 Patient encounter procedure 12/26/2024 9:40 AM EST Office Visit [facility] [address] [place] [address] Brea Jj, TOBIAS [address] [place] [phone] [facility] Start: 12-10-2024 End: 12-10-2024 Patient encounter procedure 12/10/2024 10:25 AM EST Office Visit [facility] [address] [place] [phone] Ladonna Bang, CUPOLA LINER-FINISHING TRIMMER [address] [place] [address] Rash [facility] Comment on above: Rash Start: 12-06-2024 End: 12-06-2024 Patient encounter procedure 12/06/2024 9:25 AM EST Office Visit [facility] [address] [place], [place] [phone] Ladonna Bang, CUPOLA LINER-FINISHING TRIMMER [address] [place] [address] [facility] Start: 12-03-2024 End: 12-03-2025 Amylase [Enzymatic activity/volume] in Serum or Plasma Amylase Lab Routine Nausea and vomiting, unspecified vomiting type Diarrhea, unspecified type Weight loss, unintentional Expected: 12/03/2024 (Approximate), Expires: 12/03/2025 [facility] Comment on above: Expected: 12/03/2024 (Approximate), Expi res: 12/03/2025 Start: 12-03-2024 End: 12-03-2025 Bacteria identified in Urine by Culture Urine culture (clean catch) Microbiology Routine Nausea and vomiting, unspecified vomiting type Diarrhea, unspecified type Weight loss, unintentional Expected: 12/03/2024 (Approximate), Expires: 12/03/2025 [facility] Comment on above: Expected: 12/03/2024 (Approximate), Expi res: 12/03/2025 Start: 12-03-2024 End: 12-03-2025 CBC W Auto Differential panel - Blood CBC and differential Lab Routine Nausea and vomiting, unspecified vomiting type Diarrhea, unspecified type Weight loss, unintentional Expected: 12/03/2024 (Approximate), Expires: 12/03/2025 [facility] Work Phone: Comment on above: Expected: 12/03/2024 (Approximate), Expi res: 12/03/2025 Start: 12-03-2024 End: 12-03-2025 Clostridioides difficile toxin A+B tcdA+tcdB genes [Presence] in Stool by PANDA with probe detection Clostridium difficile,EIA Microbiology Routine Nausea and vomiting, unspecified vomiting type Diarrhea, unspecified type Weight loss, unintentional Expected: 12/03/2024 (Approximate), Expires: 12/03/2025 [facility] Comment on above: Expected: 12/03/2024 (Approximate), Expi res: 12/03/2025 Start: 12-03-2024 End: 12-03-2025 Comprehensive metabolic 2000 panel - Serum or Plasma Comprehensive metabolic panel Lab Routine Nausea and vomiting, unspecified vomiting type Diarrhea, unspecified type Weight loss, unintentional Expected: 12/03/2024 (Approximate), Expires: 12/03/2025 [facility] Comment on above: Expected: 12/03/2024 (Approximate), Expi res: 12/03/2025 Start: 12-03-2024 End: 12-03-2025 Erythrocyte sedimentation rate Sedimentation rate, automated Lab Routine Nausea and vomiting, unspecified vomiting type Diarrhea, unspecified type Weight loss, unintentional Expected: 12/03/2024 (Approximate), Expires: 12/03/2025 [facility] Comment on above: Expected: 12/03/2024 (Approximate), Expi res: 12/03/2025 Start: 12-03-2024 End: 12-03-2025 Lipase [Enzymatic activity/volume] in Serum or Plasma Lipase Lab Routine Nausea and vomiting, unspecified vomiting type Diarrhea, unspecified type Weight loss, unintentional Expected: 12/03/2024 (Approximate), Expires: 12/03/2025 [facility] Comment on above: Expected: 12/03/2024 (Approximate), Expi res: 12/03/2025 Start: 12-03-2024 End: 12-03-2025 Measurement of occult blood in single stool specimen Occult blood x 1, stool Lab Routine Nausea and vomiting, unspecified vomiting type Diarrhea, unspecified type Weight loss, unintentional Expected: 12/03/2024 (Approximate), Expires: 12/03/2025 [facility] Comment on above: Expected: 12/03/2024 (Approximate), Expi res: 12/03/2025 Start: 12-03-2024 End: 12-03-2025 Ova and parasite screen Ova and parasite screen Microbiology Routine Nausea and vomiting, unspecified vomiting type Diarrhea, unspecified type Weight loss, unintentional Expected: 12/03/2024 (Approximate), Expires: 12/03/2025 [facility] Comment on above: Expected: 12/03/2024 (Approximate), Expi res: 12/03/2025 Start: 12-03-2024 End: 12-03-2025 Stool culture Stool culture Microbiology Routine Nausea and vomiting, unspecified vomiting type Diarrhea, unspecified type Weight loss, unintentional Expected: 12/03/2024 (Approximate), Expires: 12/03/2025 [facility] Comment on above: Expected: 12/03/2024 (Approximate), Expi res: 12/03/2025 Start: 12-03-2024 End: 12-03-2025 Thyrotropin [Units/volume] in Serum or Plasma TSH Lab Routine Weight loss, unintentional Expected: 12/03/2024 (Approximate), Expires: 12/03/2025 [facility] Comment on above: Expected: 12/03/2024 (Approximate), Expi res: 12/03/2025 Start: 12-03-2024 End: 12-03-2025 Thyroxine (T4) free [Mass/volume] in Serum or Plasma T4, free Lab Routine Weight loss, unintentional Expected: 12/03/2024 (Approximate), Expires: 12/03/2025 [facility] Comment on above: Expected: 12/03/2024 (Approximate), Expi res: 12/03/2025 Start: 12-03-2024 End: 12-03-2025 Triiodothyronine (T3) Free [Mass/volume] in Serum or Plasma T3, free Lab Routine Weight loss, unintentional Expected: 12/03/2024 (Approximate), Expires: 12/03/2025 [facility] Comment on above: Expected: 12/03/2024 (Approximate), Expi res: 12/03/2025 Start: 12-03-2024 End: 12-03-2025 Urinalysis complete panel - Urine Urinalysis with reflex microscopic (clean catch) Lab Routine Nausea and vomiting, unspecified vomiting type Diarrhea, unspecified type Weight loss, unintentional Expected: 12/03/2024 (Approximate), Expires: 12/03/2025 [facility] Comment on above: Expected: 12/03/2024 (Approximate), Expi res: 12/03/2025 Start: 12-03-2024 End: 12-03-2024 Patient encounter procedure 12/03/2024 9:00 AM EST Office Visit [facility] [address] [place] [address] Brea Jj NP [address] [place] [address] Class 2 severe obesity due to excess calories with serious comorbidity and body mass index (BMI) of 37.0 to 37.9 in adult (CMS/HCC) (Primary Dx); Chronic respiratory failure with hypoxia (CMS/HCC); Morbid (severe) obesity due to excess calories (CMS/HCC); Essential (primary) hypertension (CMS/HCC); Rash; Tobacco dependence syndrome; Anxiety and depression (CMS/HCC) [facility] Comment on above: Class 2 severe obesity due to excess iraj ories with serious comorbidity and body mass index (BMI) of 37.0 to 37.9 in adult (CMS/HCC) (Primary Dx); Chronic respiratory failure with hypoxia (CMS/HCC); Morbid (severe) obesity due to excess calories (CMS/HCC); Essential (primary) hypertension (CMS/HCC); Rash; Tobacco dependence syndrome; Anxiety and depression (CMS/HCC) Start: 10-15-2024 End: 10-15-2024 Patient encounter procedure 10/15/2024 9:00 AM EST Office Visit [facility] [address] [place] [address] Brea Jj, TOBIAS [address] [place] [phone] [facility] Start: 09-15-2024 Hemoglobin A1c measurement Diabetes: Hemoglobin A1C [facility] Start: 08-30-2024 Influenza vaccination Influenza Vaccine (#1) [facility] Comment on above: Postponed from 07/01/2024 (Patient Does Not Have Time) Start: 07-24-2024 End: 07-24-2024 Patient encounter procedure [facility] Comment on above: Arrived Start: 07-01-2024 Influenza vaccination Influenza Vaccine (#1) [facility] Start: 04-29-2024 Influenza vaccination Influenza Vaccine (#1) [facility] Comment on above: Postponed from 07/01/2023 (Patient Refus ed) Start: 04-14-2024 Screening for malignant neoplasm of breast Mammogram [facility] Start: 04-14-2024 Urine screening for protein Diabetes: Urine Protein Screening [facility] Start: 01-25-2024 Hemoglobin A1c measurement Diabetes: Hemoglobin A1C [facility] Start: 01-10-2024 End: 01-10-2024 Patient encounter procedure 01/10/2024 9:00 AM EDT [facility] [address] [place] [address] Brea Jj, TOBIAS [address] [place] [phone] [facility] Start: 1985 Screening for malignant neoplasm of cervix Pap Smear [facility] Start: 1964 Screening for malignant neoplasm of colon [facility] Patient Education Know your Meds [facility] Work Phone: Immunizations Immunization Date Immunization Notes Care Provider Fa cility 08-13-2024 influenza virus vaccine, unspecified formulation Brea Aichholz AFTER SCHOOL COORDINATOR Work Phone: [facility] 07-16-2024 influenza, seasonal, injectable Brea Aichholz AFTER SCHOOL COORDINATOR Work Phone: [facility] 08-12-2023 Influenza, Seasonal, Quadrivalent, Adjuvanted Brea Aichholz AFTER SCHOOL COORDINATOR Work Phone: [facility] 08-09-2022 influenza, injectabl e, quadrivalent, contains preservative Brea Aichholz AFTER SCHOOL COORDINATOR Work Phone: [facility] 02-13-2021 COVID-19 mRNA, Comirnaty (Pfizer) Marshall Mckeon MD Work Phone: [facility] 01-23-2021 COVID-19 mRNA, Comirnaty (Pfizer) Marshall Mckeon MD Work Phone: [facility] 07-18-2020 influenza, injectabl e, quadrivalent, contains preservative Brea Aichholz AFTER SCHOOL COORDINATOR Work Phone: [facility] 07-01-2020 influenza, high dose seasonal, preservative-free Brea Aichholz AFTER SCHOOL COORDINATOR Work Phone: [facility] Payers Date Payer Category Payer Self-pay 2025 Unknown [id number] 2020 Medicaid [employer] [place] [employer] [id number] 2020-Present [address] [place] [address] [id number] 2020 Medicaid (Managed Care) [employer] [id number] 1964 Unknown [id number] 2.16.840.1.033266.3.579.2. 647 1965 Unknown [id number] 2.16.840.1.151060.3.579.2. 593 1965 Unknown [id number] 2.16.840.1.122497.3.579.2. 593 1964 Unknown [id number] 2.16.840.1.654013.3.579.2. 593 1964 Unknown [id number] 2.16.840.1.804805.3.579.2. 593 1964 Unknown [id number] 2.16.840.1.478967.3.579.2. 593 1964 Unknown [id number] 2.16.840.1.413346.3.579.2. 593 1964 Unknown [id number] 2.16.840.1.564705.3.579.2. 593 1964 Unknown [id number] 2.16.840.1.283641.3.579.2. 593 1964 Unknown [id number] 2.16.840.1.529576.3.579.2. 727 1964 Unknown [id number] 2.16.840.1.543070.3.579.2. 727 1964 Unknown [id number] 2.16.840.1.128102.3.579.2. 727 1964 Unknown [id number] 2.16.840.1.458245.3.579.2. 727 1964 Unknown [id number] 2.16.840.1.593502.3.579.2. 727 1964 Unknown [id number] 2.16.840.1.391230.3.579.2. 72 1964 Unknown [id number] 2.16.840.1.126743.3.579.2. 1964 Unknown [id number] 2.16.840.1.604508.3.579.2. 7 1964 Unknown [id number] 2.16.840.1.458915.3.579.2. 1258 1964 Unknown [id number] 2.16.840.1.239480.3.579.2. 1258 1964 Unknown [id number] 2.16.840.1.223180.3.579.2. 1258 1964 Unknown [id number] 2.16.840.1.934333.3.579.2. 9 1964 Unknown [id number] 2.16.840.1.462767.3.579.2. 1258 1964 Unknown [id number] 2.16.840.1.757736.3.579.2. 1258 1964 Unknown [id number] 2.16.840.1.826416.3.579.2. 1258 1964 Unknown [id number] 2.16.840.1.871195.3.579.2. 9 1959 Unknown [id number] Unknown [id number] 2.16.840.1.170311.3.579.2. 531 Unknown [id number] 2.16.840.1.944487.3.579.2. 531 Social History Date Type Detail Facility Tobacco Former smoker [facility] Comment on above: 1/2 pack a day Tobacco smoking status [facility] Start: 04-21-2023 End: 12-05-2023 Sex Assigned At Female [facility] Start: 06-28-2023 End: 10-29-2024 Tobacco smoking status Ex-smoker (finding) [facility] Comment on above: Quit 06/19/23 1/2 pack a day History of tobacco use Current smoker [facility] History of tobacco use Cigarette Smoker [facility] Start: 10-19-2023 End: 12-05-2023 Cigarettes smoked current (pack per day) - Reported 1 [facility] Start: 10-19-2023 End: 10-29-2024 Tobacco use and exposure Smokeless tobacco non-user [facility] Start: 12-05-2023 End: 05-28-2025 Alcohol intake Lifetime non-drinker (finding) [facility] How often to you hav e a drink containing alcohol? Never [facility] How many standard drinks containing alcohol do you have on a typical day? Patient does not drink [facility] Start: 10-19-2023 Tobacco Comment 11-20 cigarettes/day [facility] Start: 10-19-2023 Alcohol Comment caffeine 2-3 c ups per day [facility] Start: 1965 Sex Assigned At Female N [facility] Start: 04-20-2023 Gender identity Identifies as female gender (finding) [facility] Start: 04-20-2023 Sexual orientation Heterosexual (fin ding) [facility] Start: 07-23-2024 End: 01-14-2025 Tobacco smoking status Heavy tobacco smoker (finding) [facility] Start: 01-18-2019 Sex Female (finding) [facility] Start: 05-28-2025 End: 05-29-2025 Tobacco smoking status NHIS Smokes tobacco daily (finding) [facility] Medical Equipment Procedure Code Equipment Code Equipment Origin al Text Equipment Identifier Dates USE ONCE DAILY A S DIRECTED [id number] Start: 03-17-2023 Goals Date Patient Goal Desired Activity /State Functional Status Date Assessment Result Facility 05-29-2025 Functional status Patient at Baseline [facility] Work Phone: 05-28-2025 Functional status Patient at Baseline [facility] Work Phone: 09-25-2023 Functional Status N/A [facility] 09-08-2023 Functional Status N/A [facility] 06-16-2023 Functional Status N/A [facility] 06-16-2023 Functional Status [facility] Mental Status Date Assessment Result Facility 05-29-2025 Cognitive function Cognitive Sta tus Patient at Baseline [facility] Work Phone: 05-28-2025 Cognitive function Cognitive Sta tus Patient at Baseline [facility] Work Phone: Clinical Notes 06-17-2023 to 05-30-2025 Brea Jj NP - 05/30/2025 10:53 AM EDT Note Date & Type Note Facility 05-30-2025 History of Presen t illness Narrative Associated Problem(s): Hypomagnesemia Start supplement Recheck in 10 days fluids documented in this encounter [facility] 05-29-2025 History and physi iraj note Note Date/Time May 29, 2025 3:27am [facility] [address] [place] [address] Hospitalist H&P Signed Patient: Aliya Moore MR#: [id number] : 1965 Acct:[id number] Age/Sex: 59 / F Adm Date: 5 Loc: Room: [address] [place] [address] Type: ADM IN Attending Dr: Marshall Mckeon MD Copies to: MD Brea Iqbal, TOBIAS-C DO Debbie Kyle, CUPOLA LINER~ HPI DATE OF EXAMINATION: 05/29/25 CHIEF COMPLAINT: Nausea, vomiting, diarrhea for 4 days HISTORY OF PRESENT ILLNESS: Ms. Moore is a 59-year-old female with a PMH of HTN, ROLANDO, does not wear CPAP, COPD, chronic hypoxic respiratory failure?home oxygen 3L NC at at bedtime and asneeded, tobacco dependence, RLS that presented to [facility] emergency room for kidney function elevated and blood pressure low. She went to see her PCP who had some lab work obtained and upon results of the labs she sent her to the emergency room. She also states her blood pressure was low in the office. She said on Tuesday she started vomiting, could not eat anything and could not keep anything down but she was able to drink some fluids, also had diarrhea, waswatery. Her last bowel movement was Tuesday morning. Denies any blood in her stool or emesis. She also complained of left upper quadrant abdominal pain. She denies pain at this time. Denies any fever, chest pain or shortness of breath. States that she did have chills. She says that she is supposed to wearCPAP but she does not. She has 3 L nasal cannula that she wears at night and asneeded. She says that she is not diabetic, question her on her pioglitazone on the med list and she does not think she takes it. She does not have a current medication list with her. She does know that she takes lisinopril/HCTZ and furosemide at home. She is a pack-a-day smoker, denies alcohol or illicit drug use. [facility] chart review?CT of the abdomen pelvis showed cholelithiasis, no acute process. Initial BMP with sodium 133, BUN 91, creatinine 3.7, glucose 153. Repeat BMP with BUN of 82, creatinine 3.14. UA with light yellow, clear urine, negative for infection. CBC with a white blood cell count of 10.9, H&H 13.9/41.7. EKG was normal sinus rhythm with a nonspecific T wave abnormality. She received 4 L of normal saline, Zofran. Blood pressure on arrival to [facility] was 83/51, heart rate was 97. Transferred here to [facility] as inpatient to the med/surg tele floor. Review of Systems Review of Systems Review of systems: A 10 point review of systems was obtained, negative unless noted in the HPI or below. [facility] Medical History (Updated 05/29/25 @ 01:21 by Debbie Alejandro APRN) Tobacco abuse disorder Problem List clean-up per request of Phys. EHR Cmte Smoker Problem List clean-up per request of Phys. EHR Cmte Sleep apnea Problem List clean-up per request of Phys. EHR Cmte Vomiting Problem List clean-up per request of Phys. [facility] x 2 Problem List clean-up per request of Phys. EHR Cmte Depression Problem List clean-up per request of Phys. EHR Cmte Anxiety Problem List clean-up per request of Phys. [facility] COPD (chronic obstructive pulmonary disease) Problem List clean-up per request of Phys. EHR Cmte Restless leg syndrome Problem List clean-up per request of Phys. EHR Cmte Hypertension Problem List clean-up per request of Phys. EHR Cmte Diabetes Problem List clean-up per request of Phys. [facility] Surgical History (Updated 05/29/25 @ 01:20 by Debbie Alejandro APRN) History of colonoscopy History of foot surgery Problem List clean-up per request of Phys. [facility] History of knee surgery Problem List clean-up per request of Phys. [facility] History of knee surgery as teenager Problem List clean-up per request of Phys. [facility] Family History Other COPD (chronic obstructive pulmonary disease) Social History Smoking Status: Current every day smoker Tobacco Type: cigarettes Substance Use Type: None Meds Medications and Allergies Allergies No Known Allergies Allergy (Verified 07/08/21 22:12) Home Medications albuterol sulfate 90 mcg/actuation aerosol inhaler (Ventolin HFA) 2 puff inhalation Q4-6H PRN Shortness Of Breath 03/31/20 [History Confirmed 05/28/25] aspirin 81 mg chewable tablet 81 mg PO DAILY 03/31/20 [History Confirmed 05/28/25] atorvastatin 40 mg tablet 40 mg PO DAILY 03/31/20 [History Confirmed 05/28/25] budesonide-formoterol HFA 160 mcg-4.5 mcg/actuation aerosol inhaler 2 puff inhalation DAILY PRN Shortness Of Breath 03/31/20 [History Confirmed 05/28/25] celecoxib 200 mg capsule 200 mg PO DAILY 03/31/20 [History Confirmed 05/28/25] duloxetine 60 mg capsule,delayed release 60 mg PO DAILY 03/31/20 [History Confirmed 05/28/25] lisinopril 20 mg-hydrochlorothiazide 25 mg tablet 1 tab PO DAILY 03/31/20 [History Confirmed 05/28/25] multivitamin 1 tab PO DAILY 03/31/20 [History Confirmed 05/28/25] pramipexole 0.25 mg tablet 0.5 mg PO QHS 03/31/20 [History Confirmed 05/28/25] dicyclomine 20 mg tablet 20 mg PO BID PRN abdominal pain 07/08/21 [History Confirmed 05/28/25] gabapentin 300 mg capsule 300 mg PO DAILY 07/08/21 [History Confirmed 05/28/25] pioglitazone 15 mg tablet 15 mg PO DAILY 07/08/21 [History Confirmed 05/28/25] sucralfate 1 gram tablet 1 g PO TID 07/08/21 [History Confirmed 05/28/25] albuterol sulfate 2.5 mg/3 mL (0.083 %) solution for nebulization 2.5 mg (3 mL) inhalation TID 10 days #90 mL 07/14/21 [Rx Confirmed 05/28/25] levofloxacin 750 mg tablet 750 mg PO DAILY #2 tabs 07/14/21 [Rx Confirmed 05/28/25] Exam Physical Exam Vital Signs: Temp Resp BP Pulse Ox O2 Del Method O2 Flow Rate 98.0 F 17 131/72 97 Nasal Cannula 3 05/28/25 23:39 05/28/25 23:39 05/28/25 23:39 05/28/25 23:39 05/29/25 00:26 05/29/25 00:26 Narrative: CONST- Appears well -developed and well nourished. Morbidly obese?BMI 39.1 HEAD - Normocephalic and atraumatic EENT-Sclera nonicteric, conjunctive are non-erythemic, moist oral mucosa, pharynx clear NECK-Supple, no cervical lymphadenopathy CARDIAC-normal rate, regular rhythm, S1 & S2. PULM-diminished without wheeze or rhonchi, RA, no accessory muscle use or cough noted ABD - Soft. Bowel sounds are normal. No distention. No tenderness EXTREM-no edema BLE calves, nontender SKIN- W/D good turgor MS- MAEX4 spontaneously with equal with equal strength NEURO- A&Ox3 speech clear and tongue midline, equal facial symmetry, no focal motor deficits PSYCH-Mood, affect, and behavior appropriate Assessment & Plan Assessment/Plan (1) LAINA (acute kidney injury): (2) Nausea and vomiting: (3) Diarrhea: Plan LAINA?current creatinine 3.1, Last creatinine in 2020- 0.81, likely due to vomiting and diarrhea for 4 days complicated by medications Nausea and vomiting Diarrhea ? IV hydration?LR @ 75cc/hr x 1 ? CBC, BMP, magnesium in a.m. ? Hold nephrotoxic medications Tobacco dependence?encouraged cessation, nicotine patch daily, tobacco cessation Chronic conditions?please call patient's PCP Brea Jj NP [phone] to obtain current med list HTN?hold lisinopril/HCTZ Diabetes??Fingersticks ACHS, SSIC, hold pioglitazone?patient is not sure she takes that HLD Chronic hypoxic respiratory failure?3 L nasal cannula at at bedtime and as needed RLS COPD DVT PPx?heparin Diet order?1800 ADA CODE STATUS?full code IP vs OBS Justification Based on differential dx, clinical care plan, and risk of adverse events, if untreated, in my clinical judgement this patient requires an acute care setting as: INPATIENT because of an expectation of an over 2 midnight stay. Estimated length of stay (# of days): 3 Documented By: Debbie Alejandro APRN 05/29/25 0104 Signed By: <Electronically signed by AWILDA Alejandro> 05/29/25 0126 <Electronically signed by Misha Ochoa DO> 05/29/25 0327 [facility] Work Phone: 1(351) 818-754307-30-2025 [place] [address] Hospitalist H&P Signed Patient: Aliya Moore MR#: [id number] : 1965 Acct:[id number] Age/Sex: 59 / F Adm Date: 5 Loc: Room: [address] [place] [address] Type: ADM IN Attending Dr: Marshall Mckeon MD Copies to: MD Brea Iqbal, [employer] SCHO[employer] COORDINATOR-C DO Debbie Kyle APRN~ HPI DATE OF EXAMINATION: 05/29/25 CHIEF COMPLAINT: Nausea, vomiting, diarrhea for 4 days HISTORY OF PRESENT ILLNESS: Ms. Moore is a 59-year-old female with a PMH of HTN, ROLANDO, does not wear CPAP, COPD, chronic hypoxic respiratory failure?home oxygen 3L NC at at bedtime and asneeded, tobacco dependence, RLS that presented to [facility] emergency room for kidney function elevated and blood pressure low. Shewent to see her PCP who had some lab work obtained and upon results of the labs she sent her to the emergency room. She also states her blood pressure was low in the office. She said on Tuesday she started vomiting, could not eat anything and could not keep anything down but she was able to drink some fluids, also had diarrhea, waswatery. Her last bowel movement was Tuesday morning. Denies any blood in her stool or emesis. She also complained of left upper quadrant abdominal pain. She denies pain at this time. Denies any fever, chest pain or shortness of breath. States that she did have chills. She says that she is supposed to wearCPAP but she does not. She has 3 L nasal cannula that she wears at night and asneeded. She says that she is not diabetic, question her on her pioglitazone on themed list and she does not think she takes it. She does not have a current medication list with her.She does know that she takes lisinopril/HCTZ and furosemide at home. She is a pack-a-day smoker, denies alcohol or illicit drug use. [facility] chart review?CT of the abdomen pelvis showed cholelithiasis, no acute process. Initial BMP with sodium 133, BUN 91, creatinine 3.7, glucose 153. Repeat BMP with BUN of 82, creatinine 3.14. UA with light yellow, clear urine, negative for infection. CBC with a white blood cell countof 10.9, H&H 13.9/41.7. EKG was normal sinus rhythm with a nonspecific T wave abnormality. She received 4 L of normal saline, Zofran. Blood pressure on arrival to [facility] was 83/51, heart rate was 97. Transferred here to [facility] as inpatient to the med/surg tele floor. Review of Systems Review of Systems Review of systems: A 10 point review of systems was obtained, negative unless noted in the HPI or below. [facility] Medical History (Updated 05/29/25 @ 01:21 by Debbie Alejandro APRN) Tobacco abuse disorder Problem List clean-up per request of Phys. EHR Cmte Smoker Problem List clean-up per request of Phys. EHR Cmte Sleep apnea Problem List clean-up per request of Phys. EHR Cmte Vomiting Problem List clean-up per request of Phys. EHR Cmte delivery delivered x 2 Problem List clean-up per request of Phys. EHR Cmte Depression Problem List clean-up per request of Phys. EHR Cmte Anxiety Problem List clean-up per request of Phys. EHR Cmte COPD (chronic obstructive pulmonary disease) Problem List clean-up per request of Phys. EHR Cmte Restless leg syndrome Problem List clean-up per request of Phys. EHR Cmte Hypertension Problem List clean-up per request of Phys. EHR Cmte Diabetes Problem List clean-up per request of Phys. [facility] Surgical History (Updated 05/29/25 @ 01:20 by Debbie Alejandro APRN) History of colonoscopy History of foot surgery Problem List clean-up per request of Phys. EHR Cmte History of knee surgery Problem List clean-up per request of Phys. EHR Cmte History of knee surgery as teenager Problem List clean-up per request of Phys. [facility] Family History Other COPD (chronic obstructive pulmonary disease) Social History Smoking Status: Current every day smoker Tobacco Type: cigarettes Substance Use Type: None Meds Medications and Allergies Allergies No Known Allergies Allergy (Verified 07/08/21 22:12) Home Medications albuterol sulfate 90 mcg/actuation aerosol inhaler (Ventolin HFA) 2 puff inhalation Q4-6H PRN Shortness Of Breath 03/31/20 [History Confirmed 05/28/25] aspirin 81 mg chewable tablet 81 mg PO DAILY 03/31/20 [History Confirmed 05/28/25] atorvastatin 40 mg tablet 40 mg PO DAILY 03/31/20 [History Confirmed 05/28/25] budesonide-formoterol HFA 160 mcg-4.5 mcg/actuation aerosol inhaler 2 puff inhalation DAILY PRN Shortness Of Breath 03/31/20 [History Confirmed 05/28/25] celecoxib 200 mg capsule 200 mg PO DAILY 03/31/20 [History Confirmed 05/28/25] duloxetine 60 mg capsule,delayed release 60 mg PO DAILY 03/31/20 [History Confirmed 05/28/25] lisinopril 20 mg-hydrochlorothiazide 25 mg tablet 1 tab PO DAILY 03/31/20 [History Confirmed 05/28/25] multivitamin 1 tab PO DAILY 03/31/20 [History Confirmed 05/28/25] pramipexole 0.25 mg tablet 0.5 mg PO QHS 03/31/20 [History Confirmed 05/28/25] dicyclomine 20 mg tablet 20 mg PO BID PRN abdominal pain 07/08/21 [History Confirmed 05/28/25] gabapentin 300 mg capsule 300 mg PO DAILY 07/08/21 [History Confirmed 05/28/25] pioglitazone 15 mg tablet 15 mg PO DAILY 07/08/21 [History Confirmed 05/28/25] sucralfate 1 gram tablet 1 g PO TID 07/08/21 [History Confirmed 05/28/25] albuterol sulfate 2.5 mg/3 mL (0.083 %) solution for nebulization 2.5 mg (3 mL) inhalation TID 10 days #90 mL 07/14/21 [Rx Confirmed 05/28/25] levofloxacin 750 mg tablet 750 mg PO DAILY #2 tabs 07/14/21 [Rx Confirmed 05/28/25] Exam Physical Exam Vital Signs: Temp Resp BP Pulse Ox O2 Del Method O2 Flow Rate 98.0 F 17 131/72 97 Nasal Cannula 3 05/28/25 23:39 05/28/25 23:39 05/28/25 23:39 05/28/25 23:39 05/29/25 00:26 05/29/25 00:26 Narrative: CONST- Appears well -developed and well nourished. Morbidly obese?BMI 39.1 HEAD - Normocephalic and atraumatic EENT-Sclera nonicteric, conjunctive are non-erythemic, moist oral mucosa, pharynx clear NECK-Supple, no cervical lymphadenopathy CARDIAC-normal rate, regular rhythm, S1 & S2. PULM-diminished without wheeze or rhonchi, RA, no accessory muscle use or cough noted ABD - Soft. Bowel sounds are normal. No distention. No tenderness EXTREM-no edema BLE calves, nontender SKIN- W/D good turgor MS- MAEX4 spontaneously with equal with equal strength NEURO- A&Ox3 speech clear and tongue midline, equal facial symmetry, no focal motor deficits PSYCH-Mood, affect, and behavior appropriate Assessment & Plan Assessment/Plan (1) LAINA (acute kidney injury): (2) Nausea and vomiting: (3) Diarrhea: Plan LAINA?current creatinine 3.1, Last creatinine in 2020- 0.81, likely due to vomiting and diarrhea for 4 days complicated by medications Nausea and vomiting Diarrhea ? IV hydration?LR @ 75cc/hr x 1 ? CBC, BMP, magnesium in a.m. ? Hold nephrotoxic medications Tobacco dependence?encouraged cessation, nicotine patch daily, tobacco cessation Chronic conditions?please call patient's PCP Brea Jj NP [phone] to obtain current med list HTN?hold lisinopril/HCTZ Diabetes??Fingersticks ACHS, SSIC, hold pioglitazone?patient is not sure she takes that HLD Chronic hypoxic respiratory failure?3 L nasal cannula at at bedtime and as needed RLS COPD DVT PPx?heparin Diet order?1800 ADA CODE STATUS?full code IP vs OBS Justification Based on differential dx, clinical care plan, and risk of adverse events, if untreated, in my clinical judgement this patient requires an acute care setting as: INPATIENT because of an expectation ofan over 2 midnight stay. Estimated length of stay (# of days): 3 Documented By: Debbie Alejandro APRN 05/29/25 0104 Signed By: 05/29/25 0126 05/29/25 0327 [facility]07-30-2025 Evaluation note* Diagnosis Onset Date Resolution Status Admit Date LAINA (acute kidney injury) acute May 28, 2025 11:18pm Diarrhea acute May 28 11:18pm Nausea and vomiting acute May 28, 2025 11:18pm [facility] Work Phone: 1(158) 649-922007-29-2025 History of Present illness Narrative* Brea Jj NP - 05/28/2025 12:50 PM [...] has been taking pepto and tylenol * Brea Jj NP - 05/28/2025 9:00 AM EDT Images from [...] from cardiac procedure, he has been in [place] several weeks now, she only goes up [...] excess calories with serious comorbidity in adult ([facility]) 10/19/2023 Mixed hyperlipidemia 10/12/2023 ROLANDO (obstructive sleep apnea) Other insomnia 10/19/2023 Primary hypertension 10/12/2023 Restless leg syndrome 10/12/2023 Type 2 diabetes mellitus without complication, without long-term current use of insulin ([facility]) 10/19/2023 Past Surgical History: Procedure Laterality [...] Size: Large adult) Pulse 83 Temp 98.1 F (Temporal) Resp 20 Wt 251 lb 12.8 oz SpO2 96% BMI 37.18 kg/m OB Status Postmenopausal Smoking Status Former BSA 2.36 m Physical Exam Vitals and nursing note [...] excess calories with serious comorbidity in adult ([facility]) Discussed with patient their BMI (actual, verses recommended). We have also discussed lifestyle modifications: attempts to perform physical activity as chronic conditions allow, also to monitor dietary intake: increasing protein/fruits/veggies and lowering carb intake (unless contraindicated). Limit sodas, juices, and sugary drinks. Type 2 diabetes mellitus without complication, without long-term current use of insulin ([facility]) Check blood sugars daily, notify if [...] excess calories with serious comorbidity in adult ([facility]) Discussed with patient their BMI (actual, verses recommended). We have also discussed lifestyle modifications: attempts to perform physical activity as chronic conditions allow, also to monitor dietary intake: increasing protein/fruits/veggies and lowering carb intake (unless contraindicated). Limit sodas, juices, and sugary drinks. * Brea Jj NP - 05/28/2025 6:18 AM EDTAssociated Problem(s): Type 2 diabetes mellitus without complication, without long-term current useof insulin ([facility]) Check blood sugars daily, notify if [...] syndrome Current medication: pramipexole documented in this encounterSullivan [facility] [id number] Instructions* Patient Instructions* Brea Jj NP - 05/28/2025 9:00 AM EDT Check lab , Hydrate with electrolytes documented in this encounterSullivan County Memorial [id number] [facility]UN[facility] Note Chief Complaint: Patient here for 1.5 year follow up. Patient states she feels ok. Patient states she has had some chest pain, patient feels it could of been from anxiety chest pain lasted 5 to 10 minutes with no other symptoms. HPI: Aliya Moore is a 59 y.o. female Patient here for 6 mo follow up hypertension and myocardial bridge of coronary artery. Doing well; has chronic shortness of breath. Denies chest pain. Update 03/28/2025: Doing well overall. Unfortunately, has been under a lot of stress. Her needs a heart transplant and is being evaluated at the [facility]. She has occasional chest pain at rest lasting 5 to 10 minutes. Surprisingly, I do not see a beta-aleks on her medication list. Cardiology ROS: Review of Systems Cardiovascular: Positive for chest pain and dyspnea on exertion. Respiratory: Positive for shortness of breath. Musculoskeletal: Positive for arthritis, back pain and joint pain. Neurological: Positive for headaches. All other systems reviewed and are negative. Past Medical History She has a past medical history of COPD (chronic obstructive pulmonary disease) ([facility]), Diabetes mellitus ([facility]), Hyperlipidemia, Hypertension, and Sleep apnea. Surgical History She has a past surgical history that includes Cardiac catheterization; Knee surgery; and section, classic. Social History She reports that she quit smoking about 4 years ago. Her smoking use included cigarettes. She has never used smokeless tobacco. She reports that she does not currently use alcohol. No history on file for drug use. Family History Family History Problem Relation Name Age of Onset Coronary artery disease Other Pulmonary embolism Other Deep vein thrombosis Other Allergies Patient has no known allergies. Medications Current Outpatient Medications: ferrous sulfate 325 (65 Fe) MG tablet, Take 325 mg by mouth in the morning., Disp: , Rfl: multivitamin tablet, Take 1 tablet by mouth in the morning., Disp: , Rfl: albuterol 90 mcg/actuation inhaler, Ventolin HFA 90 [...] morning and at bedtime., Disp: , Rfl: DULoxetine (Cymbalta) [address] capsule, duloxetine 60 mg capsule,delayed release TAKE ONE CAPSULE BY MOUTH ONCE DAILY, Disp: , Rfl: Eliquis 5 mg tablet, Take 5 mg by mouth in the morning and at bedtime., Disp: , Rfl: fluticasone (Flovent) 110 mcg/actuation inhaler, Flovent HFA 110 mcg/actuation aerosol inhaler INHALE 2 PUFFS TWICE A DAY -RINSE MOUTH AFTER USE, Disp: , Rfl: furosemide (Lasix) 20 mg tablet, TAKE ONE TABLET BY MOUTH ONCE DAILY, Disp: 90 tablet, Rfl: 3 gabapentin (Neurontin) 300 mg capsule, gabapentin 300 [...] TABLET BY MOUTH DAILY, Disp: , Rfl: pantoprazole (ProtoNix) 40 mg EC tablet, Take 40 mg by mouth before breakfast., Disp: , Rfl: pioglitazone (Actos) 15 mg tablet, pioglitazone 15 mg tablet TAKE ONE TABLET BY MOUTH ONCE DAILY, Disp: , Rfl: potassium chloride CR (Klor-Con) 10 mEq ER tablet, TAKE ONE TABLET BY MOUTH ONCE DAILY, Disp: 90 tablet, Rfl: 3 pramipexole (Mirapex) 0.5 mg tablet, Take 0.5 mg by mouth with breakfast., Disp: , Rfl: theophylline ER (Uniphyl) 400 mg 24 hr tablet, theophylline ER 400 mg tablet,extended release 24 hr TAKE ONE TABLET BY MOUTH TWICE A DAY, Disp: , Rfl: Last Recorded Vitals BP 134/68 (BP Location: Right arm, Patient Position: Sitting) Pulse 96 Ht 1.753 m (5' 9 ) Wt 118 kg (260 lb) SpO2 95% BMI 38.40 kg/m??? Physical Examination: GENERAL: alert and oriented [...] extremity edema, peripheral pulses are 2+ bilaterally. N (more content not included)...[facility]04-28-2025 History of Present illness Narrative* Brea Jj NP - 02/25/2025 10:31 AM EDTAssociated Problem(s): COPD exacerbation (CMS/HCC) In Er 02/21/25 Currently on meds for this If worsening in symptoms please call dr russo's office If severe sxs go to ER * Brea Jj NP - 02/25/2025 10:30 AM EDTAssociated Problem(s): Encounter for wellness examination in adult Reviewed Ht/Wt/BMI Recommend eye exam yearly Recommend dental exams twice a year Exercises is recommended most days of the week (appropriate as chronic conditions allow) Follow up yearly and prn * AVI LONG - 02/25/2025 9:40 AM EDT A1C today is 6.1% Pt was in ER on 02/21 Still the same but states breathing is a little better Pt came in with out any 02 on On room air pt 02 stat was 78-79 Pt then put on her portable 02 At 3L Pt 02 stat was 92-93% After a couple minutes * Brea Jj NP - 02/25/2025 9:40 AM EDT Images from the original note were not included. Aliya Moore is a 59 y.o. 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 She has type 2 diabetes mellitus. Her disease coursehas been stable. Hypoglycemia symptoms include nervousness/anxiousness. Pertinent negatives for hypoglycemia include no dizziness, headaches, seizures or tremors. Pertinent negatives for diabetes incl ude no blurred vision, no chest pain, no foot paresthesias, no polydipsia, no polyphagia, no polyuria and no visual change. There are no hypoglycemic complications. Symptoms are stable. Pertinent negatives for diabetic complications include no peripheral neuropathy. Risk factors for coronary artery disease include dyslipidemia, diabetes mellitus, hypertension, post-menopausal, sedentary lifestyleand obesity. An YUSUF inhibitor/angiotensin II receptor aleks is being taken. She does not see a ticket taker.Eye exam is current. Hypertension This is a chronic problem. The problem is controlled. Associated symptoms include shortness of breath. Pertinent negatives include no blurred vision, chest pain, headaches, palpitations or peripheraledema. There are no associated agents to hypertension. Risk factors for coronary artery disease include diabetes mellitus, dyslipidemia, obesity and sedentary lifestyle. Past treatments include diuretics and YUSUF inhibitors. The current treatment provides significant improvement. There are no compliance problems. SUBJECTIVE: MEDICATIONS: Current Outpatient Medications Medication Instructions [...] tablet See Instructions, when needed, Refills(s) 0 DULoxetine (CYMBALTA) 60 mg, Oral, Daily FeroSul [...] tablet, Oral, Daily Multiple Vitamin (Multivitamin) tablet ondansetron ODT (ZOFRAN-ODT) 4 mg, Every 8 [...] redness and visual disturbance. Respiratory: Positive for cough, shortness of breath and wheezing. [...] Medical History: Diagnosis Date Anxiety and depression ([facility]) 10/12/2023 Arthritis Class 2 severe obesity due to excess calories with serious comorbidity in adult ([facility]) 10/19/2023 Mixed hyperlipidemia ([facility]) 10/12/2023 ROLANDO (obstructive sleep apnea) Other insomnia 10/19/2023 Primary hypertension ([facility]) 10/12/2023 Restless leg syndrome 10/12/2023 Type 2 diabetes mellitus without complication, without long-term current use of insulin 10/19/2023 Past Surgical History: Procedure Laterality Date SECTION, LOW TRANSVERSE x2 COLONOSCOPY FOOT SURGERY 01/08/2020 e/o RT foot ganglion cyst, repair tendon HEART CATH 2015 WNL KNEE SURGERY Left arthroscopy TUBAL LIGATION Bilateral BTL family history includes COPD in her mother; Heart disease in her father. OBJECTIVE: Visit Vitals BP 100/68 (BP Location: Left arm, Patient Position: Sitting, BP Cuff Size: Large adult) Pulse 93 Temp 98.1 F (Temporal) Resp 20 Wt 253 lb 3.2 oz SpO2 92% BMI 37.39 kg/m OB Status Postmenopausal Smoking Status Former BSA 2.37 m Physical Exam Vitals and nursing note [...] Pulmonary effort is normal. Breath sounds: Wheezing and rhonchi present. Comments: Wearing oxygen Abdominal: General: Bowel sounds are normal. There [...] Follow up in about 3 months (around 05/27/2025) for Recheck. Problem List Items Addressed This Visit Restless leg syndrome Relevant Medications gabapentin (Neurontin) 300 MG capsule pramipexole (Mirapex) 0.5 MG tablet clonazePAM (KlonoPIN) 0.5 MG tablet Anxiety and depression (CMS/HCC) At last visit discussed a referral to counseling Stressors with her health and husbands health as well Current meds: buspar, klonopin prn, duloxetine, lamotrigine in hospital with critical low blood count She is worried about them Relevant Medications busPIRone (Buspar) 15 MG tablet lamoTRIgine (LaMICtal) 25 MG tablet clonazePAM (KlonoPIN) 0.5 MG tablet Essential (primary) hypertension (CMS/HCC) Please check blood pressure daily and record DASH diet Limit caffeine Take medication as directed Contact office if chest pain, pressure, dizziness, shortness of breath, swelling legs Recommend slow position changes Current med: lisinopril/hydrochlorothiazide Relevant Medications lisinopril-hydroCHLOROthiazide 20-25 MG tablet Mixed hyperlipidemia (CMS/HCC) Relevant Medications atorvastatin (Lipitor) 40 MG tablet Other insomnia Relevant Medications clonazePAM (KlonoPIN) 0.5 MG tablet Type 2 diabetes mellitus without complication, without long-term current use of insulin Check blood sugars daily, notify if <70 [...] yusuf/hydrochlorothiazide, pioglitazone A1c 6.1% 02/25/25 Relevant Medications pioglitazone (Actos) 15 MG tablet Other Relevant Orders POCT glycosylated hemoglobin (Hb A1C) docked device (Completed) Edema of both lower extremities Relevant Medications furosemide (Lasix) 20 MG tablet potassium chloride CR (Klor-Con) 10 MEQ ER tablet Gastroesophageal reflux disease without esophagitis Recommendations: freq small meals, nothing to eat or drink at least 2 hours prior to bed, limit caffeine, alcohol, as well as spicy foods Meds to limit or avoid if possible: NSAIDS Elevate HOB if possible Current meds: PPI Relevant Medications pantoprazole (ProtoNix) 40 MG EC tablet JONNY (iron deficiency anemia) Current med: ferrous sulfate Check labs periodically, also with dose changes or changes in sxs Encounter for wellness examination in adult - Primary Reviewed Ht/Wt/BMI Recommend eye exam yearly Recommend dental exams twice a year Exercises is recommended most days of the week (appropriate as chronic conditions allow) Follow up yearly and prn COPD exacerbation (CMS/HCC) In Er 02/21/25 Currently on meds for this If worsening in symptoms please call dr russo's office If severe sxs go to ER Other Visit Diagnoses Primary hypertension (CMS/HCC) Relevant Medications lisinopril-hydroCHLOROthiazide 20-25 MG tablet * Brea jJ NP - 02/25/2025 6:41 AM EDTAssociated Problem(s): Anxiety and depression (CMS/HCC) At last visit discussed a referral to counseling Stressors with her health and husbands health as well Current meds: buspar, klonopin prn, duloxetine, lamotrigine in hospital with critical low blood count She is worried about them * Brea Jj NP - 02/25/2025 6:40 AM EDTAssociated Problem(s): JONNY (iron deficiency anemia) Current med: ferrous sulfate Check labs periodically, also with dose changes or changes in sxs * Brea Jj NP - 02/25/2025 6:40 AM EDTAssociated Problem(s): Type 2 diabetes mellitus without complication, without long-term current useof insulin Check blood sugars daily, notify if <70 [...] 6.1% 02/25/25 * Brea Jj NP - 02/25/2025 6:39 AM EDTAssociated Problem(s): Gastroesophageal reflux disease without esophagitis Recommendations: freq small meals, nothing to eat or drink at least 2 hours prior to bed, limit caffeine, alcohol, as well as spicy foods Meds to limit or avoid if possible: NSAIDS Elevate HOB if possible Current meds: PPI * Brea Jj NP - 02/25/2025 6:38 AM EDTAssociated Problem(s): Essential (primary) hypertension (CMS/HCC) Please check blood pressure daily and record DASH diet Limit caffeine Take medication as directed Contact office if chest pain, pressure, dizziness, shortness of breath, swelling legs Recommend slow position changes Current med: lisinopril/hydrochlorothiazide documented in this [facility]04-28-2025 Instructions* Patient Instructions* Brea Jj NP - 02/25/2025 9:40 AM EDT No changes in med doses Finish meds from COPD flare, if not better call dr Russo's office A1c 6.1% documented in this [facility]03-03-2025 History of Present illness Narrative* CAROLE Villanueva - 12/31/2024 9:50 AM EST Images from the original note were not included. Follow up Diagnosis: Atopic Dermatitis/LSC Location: Lower legs Last visit: 12/10/2024 Symptoms: itchy at times Status: a little better Treatments tried and failed: TAC 0.1% cream from PCP, ineffective Current treatment: Fluocinonide cream, using moisturizer (can't remember if it's Cetaphil or CeraVe) All pertinent medical history, medications, and allergies were reviewed. General Exam: alert, oriented to person, place, and time, normal affect, well appearing A focused exam completed based on patient reported problems, see below: 1. Other atopic dermatitis Legs Mildly erythematous patches, 90% improvement from last visit Discussed that atopic dermatitis is a chronic condition that can be controlled but not cured. Continue Fluocinonide 0.05% cream bid prn when flared, hold if smooth/asymptomatic. Encouraged daily moisturizing and gentle cleansers to prevent flares. Notify office if flaring despite treatment. Related Medications fluocinonide (Lidex) 0.05 % cream Apply thin layer (1 g) to lower legs, up to twice a day when flared, do not use one the face, groin, or underarms, 30 day supply Next Visit: 1 year/prn documented in this [facility]02-26-2025 History of Present illness Narrative* Brea Jj NP - 12/26/2024 10:23 AM ESTAssociated Problem(s): Anxiety and depression (CMS/HCC) No med dose changes, would like counseling Refer to [facility] * AVI LONG - 12/26/2024 9:40 AM EST Pt had vomiting and diarrhea over the weekend again. * Brea Jj NP - 12/26/2024 9:40 AM EST Images from the original note were not included. Aliya Moore is a 59 y.o. female presents with chief complaint of No chief complaint on file. HPI: Episodic periods of time over the last 3 months: nausea and then vomiting for a day or so (starts recent food, then bile) then after that has diarrhea usually lasts 5-6 days. No blood, several times daily (10 possibly), has trialed OTC immodium as well as pepto no help Still has gallbladder, normal HIDA and US 2019, but reports was told she needed her gallbladder removed, however too high risk for surgery with breathing issues Also w long standing hx : GAYLE/Depression: her own health, husbands health, she is feeling overwhelmed, does not have SI/HI/Hallucinations, feels meds are working but would like a referral to counseling has done this in the past GI Problem The primary symptoms include weight loss, fatigue, nausea, vomiting and diarrhea. Primary symptoms do not include fever, abdominal pain, hematemesis, jaundice, hematochezia, dysuria, myalgias, arthralgias or rash. The illness does not include chills, constipation or back pain. Significant associated medical issues include GERD and irritable bowel syndrome. Associated medical issues do not include PUD, gastric bypass or bowel resection. SUBJECTIVE: MEDICATIONS: Current Outpatient Medications Medication Instructions [...] face, groin, or underarms, 30 day supply fluticasone (Flonase) 50 MCG/ACT nasal spray 2 sprays, Daily furosemide (LASIX) 20 mg, Daily gabapentin (NEURONTIN) 300 mg, Oral, Daily ipratropium-albuterol (Duo-Neb) 0.5-2.5 mg/3 mL nebulizer solution INHALE 3ML FOUR TIMES A DAY lamoTRIgine (LAMICTAL) 50 mg, Oral, Nightly lisinopril-hydroCHLOROthiazide 20-25 MG tablet 1 tablet, Oral, Daily Multiple Vitamin (Multivitamin) tablet ondansetron ODT (ZOFRAN-ODT) 4 mg, Every 8 hours PRN OneTouch Ultra test strip USE ONCE DAILY DIRECTED pantoprazole (PROTONIX) 40 mg, Oral, Daily before breakfast, Do not crush, chew, or split. pioglitazone (ACTOS) 15 mg, Oral, Daily potassium chloride CR (Klor-Con) 10 MEQ ER tablet 10 mEq, Oral, Daily, Take 10 mEq by mouth in the morning. pramipexole (MIRAPEX) 0.5 mg, Oral, Nightly rifAXIMin (Xifaxan) 550 MG tablet Three times daily for 14 days theophylline ER (Franki-Dur) 300 MG 12 hr tablet TAKE 1 12 TABLETS BY MOUTH EVERY 12 HOURS Ventolin HFA 108 (90 Base) MCG/ACT inhaler INHALE 2 PUFFS BY MOUTH FOR SHOTNESS OF BREATH EVERY 4 HOURS NEEDED ALLERGIES: No Known Allergies REVIEW OF SYMPTOMS: Review of Systems Constitutional: Positive for fatigue, unexpected weight change and weight loss. Negative for appetite change, chills and fever. HENT: Negative for congestion and sore throat. Eyes: Negative for pain, discharge, redness and visual disturbance. Respiratory: Positive for cough and shortness of breath. Negative for wheezing. Cardiovascular: Negative for chest pain, palpitations and leg swelling. Gastrointestinal: Positive for diarrhea, nausea and vomiting. Negative for abdominal pain, blood instool, constipation, hematemesis, hematochezia and jaundice. Genitourinary: Negative for difficulty urinating, dysuria and [...] Medical History: Diagnosis Date Anxiety and depression ([facility]) 10/12/2023 Arthritis Class 2 severe obesity due to excess calories with serious comorbidity in adult ([facility]) 10/19/2023 Mixed hyperlipidemia ([facility]) 10/12/2023 ROLANDO (obstructive sleep apnea) Other insomnia 10/19/2023 Primary hypertension ([facility]) 10/12/2023 Restless leg syndrome 10/12/2023 Type 2 diabetes mellitus without complication, without long-term current use of insulin ([facility]) 10/19/2023 Past Surgical History: Procedure Laterality Date SECTION, LOW TRANSVERSE x2 COLONOSCOPY FOOT SURGERY 01/08/2020 e/o RT foot ganglion cyst, repair tendon HEART CATH 2014 WNL KNEE SURGERY Left arthroscopy TUBAL LIGATION Bilateral BTL family history includes COPD in her mother; Heart disease in her father. OBJECTIVE: Visit Vitals BP 108/70 Pulse (!) 112 Temp 98.6 F (Temporal) Resp 20 Ht 5' 9 Wt 247 lb 12.8 oz SpO2 94% BMI 36.59 kg/m OB Status Postmenopausal Smoking Status Former BSA 2.34 m Physical Exam Vitals and nursing note reviewed. Constitutional: General: She is not in acute distress. Appearance: Normal appearance. She is obese. She is not ill-appearing or diaphoretic. HENT: Head: Normocephalic and atraumatic. Right Ear: External ear normal. Left Ear: External ear normal. Nose: Nose normal. Mouth/Throat: Mouth: Mucous membranes are moist. Eyes: Extraocular Movements: Extraocular movements intact. Conjunctiva/sclera: Conjunctivae normal. Cardiovascular: Rate and Rhythm: Normal rate and regular rhythm. Pulses: Normal pulses. Heart sounds: Normal heart sounds. Pulmonary: Effort: Pulmonary effort is normal. Breath sounds: Normal breath sounds. No wheezing, rhonchi or rales. Abdominal: General: Bowel sounds are normal. There is no distension. Palpations: Abdomen is soft. There is no mass. Tenderness: There is no abdominal tenderness. There is no rebound. Musculoskeletal: General: Normal range of motion. Cervical [...] file. Problem List Items Addressed This Visit Anxiety and depression (CMS/HCC) No med dose changes, would like counseling Refer to [facility] Essential (primary) hypertension ([facility]) Please check blood pressure daily and record DASH diet Limit caffeine Take medication as directed Contact office if chest pain, pressure, dizziness, shortness of breath, swelling legs Recommend slow position changes Current med: lisinopril/hydrochlorothiazide Class 2 severe obesity due to excess calories with serious comorbidity in adult (CMS/HCC) Discussed with patient their BMI (actual, verses recommended). We have also discussed lifestyle modifications: attempts to perform physical activity as chronic conditions allow, also to monitor dietary intake: increasing protein/fruits/veggies and lowering carb intake (unless contraindicated). Limit sodas, juices, and sugary drinks. Tobacco dependence syndrome The patient has been advised of the risks of continued smoking: stroke, ID, all forms of cancer, lung disease, and . Options for quitting smoking include: cold turkey, hypnosis, acupuncture, nicotine replacement meds(gum, lozenges, and patches), Buproprion, and Varenicline. At this time pt is encouraged to evaluate their goals for wanting to quit smoking, and reach out toprovider when ready to start this process Chronic respiratory failure with hypoxia (CMS/HCC) - Primary Has oxygen therapy Continue inhalers Follows with Dr Russo Gastroesophageal reflux disease without esophagitis Last appt started Pantoprazole Irritable bowel syndrome with diarrhea Stool sample results reviewed I have referred her to GI in [facility] trial Xifaxin for for IBS-D Has failed: immmodium, pepto Sxs could also be gallbladder related as well #3 samples: lot: [id number] exp 04/26 Relevant Medications rifAXIMin (Xifaxan) 550 MG tablet Occult blood positive stool Neg cultures +stool for OB Referred to GI Centrilobular emphysema (CMS/HCC) Continues with pulmonary Rafaela Cont current inhalers * Brea Jj NP - 12/26/2024 6:43 AM ESTAssociated Problem(s): Tobacco dependence syndrome The patient has been advised of the risks of continued smoking: stroke, ID, all forms of cancer, lung disease, and . Options for quitting smoking include: cold turkey, hypnosis, acupuncture, nicotine replacement meds(gum, lozenges, and patches), Buproprion, and Varenicline. At this time pt is encouraged to evaluate their goals for wanting to quit smoking, and reach out toprovider when ready to start this process * Brea Jj NP - 12/26/2024 6:43 AM ESTAssociated Problem(s): Occult blood positive stool Neg cultures +stool for OB Referred to GI * Brea Jj NP - 12/26/2024 6:43 AM ESTAssociated Problem(s): Class 2 severe obesity due to excess calories with serious comorbidity in adult (CMS/[facility]) Discussed with patient their BMI (actual, verses recommended). We have also discussed lifestyle modifications: attempts to perform physical activity as chronic conditions allow, also to monitor dietary intake: increasing protein/fruits/veggies and lowering carb intake (unless contraindicated). Limit sodas, juices, and sugary drinks. * Brea Jj NP - 12/26/2024 6:43 AM ESTAssociated Problem(s): Gastroesophageal reflux disease without esophagitis Last appt started Pantoprazole * Brea Jj NP - 12/26/2024 6:42 AM ESTAssociated Problem(s): Irritable bowel syndrome with diarrhea Stool sample results reviewed I have referred her to GI in [facility] trial Xifaxin for for IBS-D Has failed: immmodium, pepto Sxs could also be gallbladder related as well #3 samples: lot: [id number] exp 04/26 * Brea Jj NP - 12/26/2024 6:40 AM ESTAssociated Problem(s): Essential (primary) hypertension ([facility]) Please check blood pressure daily and record DASH diet Limit caffeine Take medication as directed Contact office if chest pain, pressure, dizziness, shortness of breath, swelling legs Recommend slow position changes Current med: lisinopril/hydrochlorothiazide * Brea Jj NP - 12/26/2024 6:40 AM ESTAssociated Problem(s): Chronic respiratory failure with hypoxia (CMS/HCC) Has oxygen therapy Continue inhalers Follows with Dr Russo * Brea Jj NP - 12/26/2024 6:39 AM ESTAssociated Problem(s): Centrilobular emphysema (CMS/HCC) Continues with ronni Russo Cont current inhalers documented [facility] this encounterS[facility] [id number] Instructions* Patient Instructions* Brea Jj NP - 12/26/2024 9:40 AM EST Xifaxin: take 3 times daily, you will take a total of 14 days Referral to [facility] in [place] documented in this encounterS[facility] [id number] History of Present illness Narrative* Ladonna Bang, [employer]ING [employer] - 12/10/2024 10:25 AM EST Images from the original note were not included. Rash Location: Bilateral lower legs Duration: A couple months at least Severity: Mild to moderate Quality: Driving me crazy. Very itchy Modifying Factors: Feels better after taking a shower, however the itch returns. History of edema of lower legs per PCP chart Associated symptoms: Redness, scale, excoriations Treatments tried: Steroid cream from my doctor Current treatments: TAC 0.1% cream bid x 14 days from PCP. WAS ineffective New patient All pertinent medical history, medications, and allergies were reviewed. General Exam: alert, oriented to person, place, and time, normal affect, well appearing, accompanied by family member A focused exam completed based on patient reported problems, see below: 1. Other atopic dermatitis Legs Scaly erythematous plaques +/- dyspigmentation, lichenification, excoriations. Flaring today Discussed that atopic dermatitis is a chronic condition that can be controlled but not cured. StartFluocinonide 0.05% cream bid prn when flared, hold if smooth/asymptomatic. Encouraged daily moisturizing and gentle cleansers to prevent flares. Notify office if flaring despite treatment. fluocinonide (Lidex) 0.05 % cream - Legs Apply thin layer (1 g) to lower legs, up to twice a day when flared, do not use one the face, groin, or underarms, 30 day supply 2. Lichen simplex chronicus Legs Hypertrophic lichenified plaque. Flaring today The patient was informed that LSC is a skin disorder causing thickened itchy patch(es) on the top of the skin. It was explained that it is often caused by repeated rubbing or scratching of an area due to itching. Treatments to help with the itching were discussed which include steroid creams, intralesional kenalog injections, and occlusive dressings to prevent scratching. The patient was also encouraged to refrain from scratching Next Visit: 3-4 weeks, follow up documented in this encounterSullivan County Memorial [id number] History of Present illness Narrative* Brea Jj NP - 12/03/2024 9:41 AM ESTAssociated Problem(s): Nausea & vomiting Has zofran for prn Check labs * Brea Jj NP - 12/03/2024 9:31 AM ESTAssociated Problem(s): Diarrhea Check sample Check labs ??IBS Fu in 3 weeks * Brea Jj NP - 12/03/2024 9:00 AM EST Images from the original note were not [...] is either food or phlegm, no fever, ornight sweats, .Usually symptoms last anywhere from 3-5 days. No other people in the home get these symptoms. She has EGD/colonoscopy in the past 03/31/2020: gastritis, and no acute colon findings. of note she has lost about 15 pounds since her last visit. She does report dicyclomine has helped in thepast No SI/HI +stressors with her health and [...] Medical History: Diagnosis Date Anxiety and depression ([facility]) 10/12/2023 Arthritis Class 2 severe obesity due to excess calories with serious comorbidity in adult ([facility]) 10/19/2023 Mixed hyperlipidemia ([facility]) 10/12/2023 ROLANDO (obstructive sleep apnea) Other insomnia 10/19/2023 Primary hypertension ([facility]) 10/12/2023 Restless leg syndrome 10/12/2023 Type 2 diabetes mellitus without complication, without long-term current use of insulin ([facility]) 10/19/2023 Past Surgical History: Procedure Laterality [...] (Mirapex) 0.5 MG tablet Anxiety and depression ([facility]/HCC) Many life stressors with her health, and [...] excess calories with serious comorbidity in adult ([facility]) Discussed with patient their BMI (actual, verses recommended). We have also discussed lifestyle modifications: attempts to perform physical activity as chronic conditions allow, also to monitor dietary intake: increasing protein/fruits/veggies and lowering carb intake (unless contraindicated). Limit sodas, juices, and sugary drinks. Type 2 diabetes mellitus without complication, without long-term current use of insulin ([facility]) Relevant Medications pioglitazone (Actos) 15 MG tablet Tobacco dependence syndrome Edema of both lower extremities Relevant Medications potassium chloride CR (Klor-Con) 10 MEQ ER tablet RESOLVED: Morbid (severe) obesity due to excess calories (CMS/HCC) Chronic respiratory failure with hypoxia ([facility]) Has oxygen therapy Continue inhalers Follows with Dr Russo Gastroesophageal reflux disease without esophagitis Relevant Medications [...] (CMS/HCC) Relevant Medications lisinopril-hydroCHLOROthiazide 20-25 MG tablet * AVI LONG - 12/03/2024 9:00 AM EST Pt is here for a persistent rash that has not gotten any better nor worse, rash is on both lower right and leg leg. Pt has been using cream x2 daily Pt has been sick off and on since 10/24 This is the third time now, started Tuesday morning with nausea, vomiting, diarrhea, cold and hot,stomach cramps. Pt had gone to the hospital with her first episode that lasted 5 days and was told that she had a virus that it needed to work its course * Brea Jj NP - 12/03/2024 6:12 AM ESTAssociated Problem(s): Anxiety and depression (CMS/HCC) Many life stressors with her health, and her 's declining health as well Current meds: buspar, klonopin, and duloxetine OARRS reviewed GAYLE 7=4 PHQ 9=5 * Brea Jj NP - 12/03/2024 6:10 AM ESTAssociated Problem(s): Rash Present for a few months, primarily itchiness At last visit ordered kenalog cream, trial steroid cream Rash is not any better * Brea Jj NP - 12/03/2024 6:09 AM ESTAssociated Problem(s): Class 2 severe obesity due to excess calories with serious comorbidity in adult (CMS/HCC) Discussed with patient their BMI (actual, verses recommended). We have also discussed lifestyle modifications: attempts to perform physical activity as chronic conditions allow, also to monitor dietary intake: increasing protein/fruits/veggies and lowering carb intake (unless contraindicated). Limit sodas, juices, and sugary drinks. * Brea Jj NP - 12/03/2024 6:09 AM ESTAssociated Problem(s): Essential (primary) hypertension (CMS/HCC) Please check blood pressure daily and record DASH diet Limit caffeine Take medication as directed Contact office if chest pain, pressure, dizziness, shortness of breath, swelling legs Recommend slow position changes Current med: lisinopril/hydrochlorothiazide, * Brea Jj NP - 12/03/2024 6:09 AM ESTAssociated Problem(s): Chronic respiratory failure with hypoxia (CMS/HCC) Has oxygen therapy Continue inhalers Follows with Dr Russo documented in this encounterSullivan County Memorial [id number] Instructions* Patient Instructions* Brea Jj NP - 12/03/2024 9:00 AM EST Check labs and stool samples Follow up in 3 weeks Dermatology referral as well documented in this encounterSullivan County Memorial [id number] History of Present illness Narrative* Brea Jj NP - 10/29/2024 6:11 PM ESTAssociated Problem(s): Gastroenteritis Was in the ER on 10/27/24, see notes, was given IV fluids Resolved at this time * Brea Jj NP - 10/29/2024 6:10 PM ESTAssociated Problem(s): Rash Present for a month, primarily itchiness Will trial steroid cream, bid for 14 days, pt to call office if she still has rash Could just be extra dry and irritated from the itch/scratch cycle ?eczema? * AVI LONG - 10/29/2024 6:00 PM EST Pt has red dry itchy patches on both shins she has had for a month Pt has been using lotions, creams * Brea Jj NP - 10/29/2024 6:00 PM EST Images from the original note were not [...] has type 2 diabetes mellitus. Her disease coursehas been stable. Hypoglycemia symptoms include nervousness/anxiousness. Pertinent negatives for hypoglycemia include no confusion, dizziness, headaches, seizures or tremors. Associated symptoms includ e polydipsia and polyuria. Pertinent negatives for diabetes [...] agent (dual therapy). An YUSUF inhibitor/angiotensin II receptorblocker is being taken. She does not see a ticket taker.Eye exam is current. Hypertension This is a [...] chest pain, confusion, dry mouth, excessive worry, fatigue,feelings of hopelessness, feelings of worthlessness, insomnia, irritability, palpitations, suicidalideas, suicidal planning and thoughts of . Frequency [...] Medical History: Diagnosis Date Anxiety and depression ([facility]) 10/12/2023 Arthritis Class 2 severe obesity due to excess calories with serious comorbidity in adult ([facility]) 10/19/2023 Mixed hyperlipidemia ([facility]) 10/12/2023 ROLANDO (obstructive sleep apnea) Other insomnia 10/19/2023 Primary hypertension ([facility]) 10/12/2023 Restless leg syndrome 10/12/2023 Type 2 diabetes mellitus without complication, without long-term current use of insulin ([facility]) 10/19/2023 Past Surgical History: Procedure Laterality [...] Items Addressed This Visit Essential (primary) hypertension (CMS/HCC) - Primary Please check blood pressure daily [...] complication, without long-term current use of insulin ([facility]) Check blood sugars daily, notify if [...] sulfate (FeroSul) 325 (65 Fe) MG tablet * Brea Jj NP - 10/29/2024 7:41 AM ESTAssociated Problem(s): Type 2 diabetes mellitus without complication, without long-term current useof insulin ([facility]) Check blood sugars daily, notify if [...] meds: asa, statin, yusuf/hydrochlorothiazide, pioglitazone A1c 5.9% * Brea Jj NP - 10/29/2024 7:41 AM ESTAssociated Problem(s): ROLANDO (obstructive sleep apnea) You have a diagnosis of obstructive sleep apnea. It is recommended that you wear your PAP device any time while in bed sleeping. Not using the PAP device can increase your risk of elevated/uncontrolled high blood pressure, atrial fibrillation, heart attack, stroke, or sudden . * Brea Jj NP - 10/29/2024 7:41 AM ESTAssociated Problem(s): Class 2 severe obesity due to excess calories with serious comorbidity in adult (CMS/[facility]) Discussed with patient their BMI (actual, verses recommended). We have also discussed lifestyle modifications: attempts to perform physical activity as chronic conditions allow, also to monitor dietary intake: increasing protein/fruits/veggies and lowering carb intake (unless contraindicated). Limit sodas, juices, and sugary drinks. * Brea Jj NP - 10/29/2024 7:41 AM ESTAssociated Problem(s): Edema of both lower extremities Takes lasix prn * Brea Jj NP - 10/29/2024 7:40 AM ESTAssociated Problem(s): Essential (primary) hypertension (CMS/HCC) Please check blood pressure daily and record DASH diet Limit caffeine Take medication as directed Contact office if chest pain, pressure, dizziness, shortness of breath, swelling legs Recommend slow position changes Current med: lisinopril/hydrochlorothiazide, documented in this [facility]12-30-2024 Instructions* Patient Instructions* Brea Jj NP - 10/29/2024 6:00 PM EST No dose changes in meds Will trial steroid cream twice a day to both legs for 14 days, if not better call me documented in this [facility]09-24-2024 History of Present illness Narrative* Brea Jj NP - 07/24/2024 9:57 AM EDTAssociated Problem(s): Anxiety and depression (CMS/HCC) Continue current meds as well as klonopin OARRS reviewed * Brea Jj NP - 07/24/2024 9:57 AM EDTAssociated Problem(s): Restless leg syndrome No med dose changes * Brea Jj NP - 07/24/2024 9:20 AM EDT Images from the original note were not included. Aliya Moore is a 58 y.o. female presents with chief complaint of No chief complaint on file. HPI: Here for a recheck: Depression/anxiety are stable. Some good days/bad days, with continued declining health (cardiac). Otherwise she is doing fairly well and feels stable with her chronic conditions as well. Sheis smoking and reports she is stressing and [...] Medical History: Diagnosis Date Anxiety and depression ([facility]) 10/12/2023 Arthritis Class 2 severe obesity due to excess calories with serious comorbidity in adult ([facility]) 10/19/2023 Mixed hyperlipidemia ([facility]) 10/12/2023 ROLANDO (obstructive sleep apnea) Other insomnia 10/19/2023 Primary hypertension ([facility]) 10/12/2023 Restless leg syndrome 10/12/2023 Type 2 diabetes mellitus without complication, without long-term current use of insulin ([facility]) 10/19/2023 Past Surgical History: Procedure Laterality [...] lisinopril-hydroCHLOROthiazide 20-25 MG tablet documented in this encounterSullivan County Memorial [id number] NoteOncology Progress Note Chief Complaint Acute PE; here to go over results. Diagnoses 1. History of pulmonary embolism (Z86.711: Personal history of pulmonary embolism) Ordered: ONC Office Visit 30 Min 2. Iron deficiency anemia (D50.9: Iron deficiency anemia, unspecified) Oncological History/ROS/PE/Assessment and Plan Aliya was referred to our hematology office at [facility] for Thrombophilia work up and decision about duration of anticoagulation for the acute PE diagnosed on . She is a 57-year-old female cigarette smoker with history of hypertension, mea-cunptob-oatcaklmu diabetes mellitus, obesity,chronic hypoxic respiratory failure on 3 L home oxygen, and depression who presented on 06/16/23 to [facility] with complaints of right-sided chest pain today. According to the patient she was in her usual state of health until today when she developed right-sided midsternal chest pain. She was at restwhen she developed the pain. Pain is rated [...] time denies any dizziness or lightheadedness craves pickles sees pulmonology next month and is due for her annual low dose CT scan has had some GI issues in the past with pain, cramping a lot. has had colonoscopy at [facility] 07/23/24 enregy has been stable, pretty good [...] clear provoking factors. no recent travel or recentsurgeries. - 06/28/23 Her thrombophilia work up came [...] [address] scan at [facility] by her pcp, told everything looks good, no concerns. Plans these yearly for surveillance 3. iron deficiency anemia December 2023 iron studies low, will initiate oral iron supplementation. Will repeat iron studies in about 6 months, (more content not included)...[facility]03-20-2024 Hospital Discharge instructions Follow Up Care 01/18/2024 12:42:29 With:Swapna ANGUIANO, Mariama Chen, ONC Address: [facility] [address] [place] [phone] When: Unknown Comments:cbc, cmp, iron studies in 6mo and 1yrfollow-up in 1yrcontinue ferrous sulfate 325mg daily [facility] [id number] Evaluation + Plan note Diagnostic Tests Pending * Methylmalonic Acid 01/16/24 [facility]02-05-2024 History of Present illness Narrative* Brea Jj NP - 12/05/2023 9:41 AM ESTAssociated Problem(s): Anxiety and depression (CMS/HCC) Stop xanax, will trial klonopin Cont lamictal, duloxetine and buspar * Brea Jj NP - 12/05/2023 9:41 AM ESTAssociated Problem(s): ROLANDO (obstructive sleep apnea) Stressed importance of PAP * Brea Jj NP - 12/05/2023 9:40 AM ESTAssociated Problem(s): Other insomnia Wean off TCA 1/2 pill every other day for 7 days, then 1/2 pill every 3rd day for 7 days then stop Trial klonopin as well * Brea Jj NP - 12/05/2023 9:40 AM ESTAssociated Problem(s): Restless leg syndrome Will see if addition of klonopin helps with this as well * Brea Jj NP - 12/05/2023 9:06 AM ESTAssociated Problem(s): COPD mixed type (CMS/HCC) Continue with pulmonology Recommend Pneuomovax * AVI LONG - 12/05/2023 9:00 AM EST Still not sleeping, pt states not at all * Brea Jj NP - 12/05/2023 9:00 AM EST Aliya Moore is a 58 y.o. female [...] chest pain, chills, congestion, fever, headaches, joint sw elling, myalgias, nausea, rash, sore throat or vomiting. [...] Medical History: Diagnosis Date Anxiety and depression ([facility]) 10/12/2023 Arthritis Class 2 severe obesity due to excess calories with serious comorbidity in adult ([facility]) 10/19/2023 COPD (chronic obstructive pulmonary disease) ([facility]) Fibrocystic breast disease Mixed hyperlipidemia ([facility]) 10/12/2023 ROLANDO (obstructive sleep apnea) Other insomnia 10/19/2023 Primary hypertension ([facility]) 10/12/2023 Restless leg syndrome 10/12/2023 Type 2 diabetes mellitus without complication, without long-term current use of insulin ([facility]) 10/19/2023 Past Surgical History: Procedure Laterality [...] Pneuomovax BMI 37.0-37.9, adult documented in this encounterSullivan County Memorial HospitalNruoabrtkf48-56-5700 Hospital Discharge instructions Patient Education 09/25/2023 21:57:45 [...] different parts that make bile. This can happenif the bile: Has too much bilirubin. This [...] and refined carbohydrates, such as white bread andwhite rice. Being obese. Being older than age [...] it can cause an infection or inflammation ofyour gallbladder (cholecystitis), liver, or pancreas. This can [...] of your gallbladder and bile ducts (biliary system)using non-harmful radioactive material and special cameras that can see the radioactive material. Endoscopic retrograde cholangiopancreatogram. This involves inserting a small tube with a camera onthe end (endoscope) through your mouth to look [...] for 12 24 hours (except for water andclear liquids). This helps to cool down your gallbladder. After 1 or 2 days, you can start to eata diet of simple or clear foods, such [...] Follow these instructions at home: Medicines Take mely-tct-aoissdg and prescription medicines only as told by [...] important. Where to find more information National [place] of Diabetes and Digestive and Kidney Diseases: [...] different parts that make bile. This can happenif your bile has too much bilirubin or [...] provider. Document Revised: 09/08/2020 Document Reviewed: 09/08/2020 [employer] Patient Education 2022 Lalina. Follow Up Care 09/25/2023 18:11:16 With:[facility] Address: [address] [place] [address] 3, [address] Floor, [address] [place] [address] [phone] Business (1) When:09/28/2023 21:47:26 With:BREA JJ Address: [address] [place] [phone] Business (1) When:Within 3 Day(s) [facility]11-26-2023 Evaluation + Plan noteExtracted from: Title:ED Note Author:Moses Fischer DO Date [...] Panel 12/27/23 * D-Dimer 12/27/23 [facility]11-09-2023 Hospital Discharge instructions Patient Education 09/08/2023 [...] Follow these instructions at home: Medicines Take igxd-drj-xqwwris and prescription medicines only as told by [...] provider. Document Revised: 12/31/2021 Document Reviewed: 12/31/2021 Elsevier Patient Education 2022 Lalina. Follow Up Care 09/08/2023 16:32:40 With:BREA JJ Address: [address] [place] [address] [phone] Business (1) When:Within 3 Day(s) [facility]11-09-2023 Evaluation + Plan noteExtracted from: Title:ED [...] Panel 12/27/23 * D-Dimer 12/27/23 [facility]09-19-2023 Hospital Discharge instructions Follow Up Care 07/19/2023 10:53:55 With:Swapna ANGUIANO, Marimaa Chen, ONC Address: [address] [phone] When: Unknown Comments:iron studies, b12, folate, mma todayfollow-up in 6mo with [employer] CO[employer]INATOR [facility]08-29-2023 Hospital Discharge instructions Follow Up Care 06/28/2023 11:35:56 With:Roby Bob Address: [address] [phone] [phone] Business (1) When: Unknown Comments:Continue ELiquis for 6 months total.D dimer, CBCD and CMP end of December 2023.RTC end of December,sooner if new SOB or CP or Leg pain or swelling or bleeding. [facility]08-18-2023 Hospital Discharge instructions Patient Education 06/17/2023 14:17:33 [...] Follow these instructions at home: Medicines Take qvjz-qpa-dyrmybg and prescription medicines only as told by [...] is important. Where to find more information [place] [employer]: www.lung.org Centers for Disease Control [...] provider. Document Revised: 09/18/2021 Document Reviewed: 09/18/2021 [employer] Patient Education 2022 Lalina. Follow Up Care 06/16/2023 15:48:06 With:BREA JJ Address: [address] [place] [address] [phone] Business (1) When:1 week Comments:A voice message is left with this office with your information so they can call you for a follow upappiontment. Please call them if you do not hear from them in a few days. Thank you. With:Ezekiel Aanhi Address: [facility] [address] [facility] [place] [address]- When:06/28/2023 11:00:00 [facility]08-18-2023 Evaluation + Plan noteExtracted from: Title:Discharge [...] puff(s), Inhalation, BID fluticasone Nasal 0.05 mg/inh [place], 2 spray(s), Nasal, Daily furosemide 20 mg Tab, 20 mg= 1 tab(s), Oral, Daily gabapentin 300 mg Cap, 300 mg= 1 cap(s), Oral, BID hydrochlorothiazide-lisinopril 25 mg-20 mg Tab, 1 tab(s), Oral, Daily lamotrigine 25 mg Tab, 25 mg= 1 tab(s), Oral, BID pioglitazone 15 mg Tab, 15 mg= 1 tab(s), Oral, Daily Potassium Chloride (Uau-Deqe-Bax 10) 10 mEq oral tablet, extended release pramipexole 0.5 mg oral tablet, 0.5 mg= 1 tab(s), Oral, TID theophylline 300 mg ER Tab, 300 mg= 1 tab(s), Oral, q12hr traZODONE 50 mg Tab, 50 mg= 1 tab(s), Oral, Once a day (at bedtime) Ventolin HFA 90 mcg/inh Aerosol-Adpt, 1 puff(s), Inhalation, QID, PRN With When Contact Information Ezekiel Christian 06/28/2023 11:00 AM EDT [facility] [address] [place] [address]- Additional Instructions: BREA JJ Within 1 week [address] [place] [address] [phone] Business (1) Additional Instructions: A voice message is left with this office with your information so they can call you for a follow up appiontment. Please call them if you do not hear from them in a few days. Thank you. Pulmonary Embolism Extracted from: Title:Admission H & P Author:JANETTE BOOTHE, Alex Date:06/16/23 57-year-old female cigarette smoker with history of hypertension, ubh-qoajtng-wcwcanhdg diabetes mellitus, obesity, chronic hypoxic respiratory failure [...] Ordered: Initial Hospital Care/Day High 75 Minutes 16005 2. Acute pulmonary embolism (I26.99: Other pulmonary [...] Ordered: Initial Hospital Care/Day High 75 Minutes 32753 3. Sinus tachycardia (R00.0: Tachycardia, unspecified) Secondary to above acute pulmonary embolism. Monitor on telemetry. Ordered: Initial Hospital Care/Day High 75 Minutes 14871 4. COPD without exacerbation (J44.9: Chronic obstructive pulmonary disease, unspecified) Supportive care. Continue on nebulizer treatments. Ordered: Initial Hospital Care/Day High 75 Minutes 48189 5. Hypertension (I10: Essential (primary) hypertension) We will verify home medications and resume accordingly. Ordered: Initial Hospital Care/Day High 75 Minutes 47312 6. Diabetes mellitus (E11.9: Type 2 diabetes [...] prophylaxis (Z79.899: Other snf (current) drug therapy) Eliquis. The patient will [...] made to ensure accuracy. However inadvertent computerized sap trainer errors may be present. Alex Barrientos. Hospitalist. [...] Office Visit New 45 (FT) [facility]08-18-2023 Hospital Discharge instructions Follow Up Care 06/17/2023 09:42:41 With:Roby Bob Address: [facility] [address] [place] [id number] [phone] Business (1) When: Unknown Comments:THrombophilia labs now with D dimer.D dimer in 3 weeks if D dimer from now is still high.Continue Eliquis 5 mg twice daily for minimum of 6 months.RTC in 3 weeks for results. [facility] Future App[facility]ments Appointment Date:07/19/2023 10:00:00 AM Scheduled Provider: Location:.ONCOLOGY Appointment Type:ONC Office Visit 30 (FT) [facility] Future Appointments Appointment Date:01/16/2024 09:00:00 AM Scheduled Provider: Location:.ONCOLOGY Appointment Type:ONC Office Visit 30 (FT) Future Scheduled Tests Laboratory* CBC w/ Auto Diff 12/27/23 * Comprehensive Metabolic Panel 12/27/23 * D-Dimer 12/27/23 [facility] Future Appointments Appointment Date:01/16/2024 11:30:00 AM Scheduled Provider:Mariama Moore Location:FT.ONCOLOGY Appointment Type:ONC Office Visit 30 (FT) [facility] Future Appointments Appointment Date:07/22/2025 [...] 01/20/25 * Transferrin 07/23/24 * Transferrin 01/20/25 [facility] + Plan note Future Appointments Appointment Date:07/23/2024 10:40:00 AM Scheduled Provider:Mariama Moore Location:FT.ONCOLOGY Appointment Type:ONC Office Visit 30 (FT) [facility] + Plan note Future Appointments Appointment Date:07/22/2025 10:00:00 AM Scheduled Provider:Mariama Moore Location:FT.ONCOLOGY Appointment Type:ONC Office Visit 20 (FT) Future Scheduled Tests Laboratory* Celiac Disease Comprehensive 01/14/25 * CBC w/ Auto Diff 07/23/24 * CBC w/ Auto Diff 01/20/25 * Comprehensive Metabolic Panel 07/23/24 * Comprehensive Metabolic Panel 01/20/25 * Ferritin 07/23/24 * Ferritin 01/20/25 * Iron Level 07/23/24 * Iron Level 01/20/25 * Iron Percent Saturation 07/23/24 * Iron Percent Saturation 01/20/25 * Transferrin 07/23/24 * Transferrin 01/20/25 Radiology* NM Gastric Emptying Study 01/14/25 [facility]* Diagnosis Other insomnia- Primary ROLANDO (obstructive sleep apnea) Obstructive sleep apnea (adult) (pediatric) COPD mixed type ([facility]) Tobacco dependence syndrome Tobacco use disorder BMI 37.0-37.9, adult Anxiety and depression ([facility]) Restless leg syndrome Restless legs syndrome (RLS) [facility] Diagnosis Anxiety and depression ([facility])- Primary Type 2 diabetes mellitus without complication, without long-term current use of insulin ([facility]) Arthritis Unspecified arthropathy, site unspecified documented [facility]* Diagnosis Type 2 diabetes mellitus without complication, without long-term current use of insulin (CMS/HCC)- Primary Atherosclerosis of aorta (CMS/HCC) Atherosclerosis of aorta documented in this encounter [facility]* Diagnosis Anxiety and depression [...] after menopause- Primary documented in this encounter [facility]* Diagnosis Anxiety and depression (CMS/HCC)- Primary Other insomnia Class 2 severe obesity due to excess calories with serious comorbidity and body mass index (BMI) of 37.0 to 37.9 in adult ([facility]) Type 2 diabetes mellitus without complication, without long-term current use of insulin ([facility]) ROLANDO (obstructive sleep apnea) Obstructive sleep apnea [...] Morbid (severe) obesity due to excess calories ([facility]) Essential (primary) hypertension ([facility]) Unspecified essential hypertension Body mass index (BMI) 37.0-37.9, adult Chronic respiratory failure with hypoxia ([facility]) Type 2 diabetes mellitus with other specified complication ([facility] Atherosclerosis of aorta ([facility]) Atherosclerosis of aorta Mixed hyperlipidemia ([facility]) Mixed hyperlipidemia Anxiety and depression ([facility]) Restless leg syndrome Restless legs syndrome (RLS) Primary hypertension ([facility]) Unspecified essential hypertension Type 2 diabetes mellitus without complication, without long-term current use of insulin ([facility]) Right upper quadrant abdominal pain COPD mixed type ([facility]) Gastroesophageal reflux disease without esophagitis Esophageal reflux Anxiety and depression ([facility])- Primary Mixed hyperlipidemia ([facility]) Mixed hyperlipidemia Restless leg syndrome Restless legs syndrome (RLS) Primary hypertension ([facility]) Unspecified essential hypertension Type 2 diabetes mellitus without complication, without long-term current use of insulin ([facility]) Other insomnia Mixed hyperlipidemia ([facility]/HCC) Mixed hyperlipidemia documented in this encounter [facility]* Diagnosis Anxiety and depression ([facility]/HCC)- Primary Other insomnia Class 2 severe obesity due to excess calories with serious comorbidity and body mass index (BMI) of 37.0 to 37.9 in adult ([facility]) Type 2 diabetes mellitus without complication, without long-term current use of insulin ([facility]) ROLANDO (obstructive sleep apnea) Obstructive sleep apnea (adult) (pediatric) Other insomnia- Primary ROLANDO (obstructive sleep apnea) Obstructive sleep apnea (adult) (pediatric) COPD mixed type ([facility]) Tobacco dependence syndrome Tobacco use disorder BMI 37.0-37.9, adult Anxiety and depression ([facility]) Restless leg syndrome Restless legs syndrome (RLS) Other insomnia- Primary Anxiety and depression ([facility]) Restless leg syndrome Restless legs syndrome (RLS) Acute non-recurrent maxillary sinusitis Right upper quadrant abdominal pain Other fatigue- Primary Morbid (severe) obesity due to excess calories ([facility]) Essential (primary) hypertension ([facility]) Unspecified essential hypertension Body mass index (BMI) 37.0-37.9, adult Chronic respiratory failure with hypoxia ([facility]) Type 2 diabetes mellitus with other specified complication ([facility] Atherosclerosis of aorta ([facility] Atherosclerosis of aorta Mixed hyperlipidemia ([facility] Mixed hyperlipidemia Anxiety and depression ([facility]) Restless leg syndrome Restless legs syndrome (RLS) Primary hypertension ([facility]) Unspecified essential hypertension Type 2 diabetes mellitus without complication, without long-term current use of insulin ([facility]) Right upper quadrant abdominal pain COPD mixed type ([facility]) Gastroesophageal reflux disease without esophagitis Esophageal reflux Anxiety and depression ([facility])- Primary Mixed hyperlipidemia ([facility]) Mixed hyperlipidemia Restless leg syndrome Restless legs syndrome (RLS) Primary hypertension ([facility]) Unspecified essential hypertension Type 2 diabetes mellitus without complication, without long-term current use of insulin ([facility]) Other insomnia Gastroesophageal reflux disease without esophagitis Esophageal reflux documented in this encounter [facility]* Diagnosis Gastroesophageal reflux disease without esophagitis Esophageal reflux documented in this encounter [facility]* Diagnosis Anxiety and depression ([facility])- Primary Mixed hyperlipidemia ([facility]) Mixed hyperlipidemia Restless leg syndrome Restless legs syndrome (RLS) Primary hypertension ([facility]) Unspecified essential hypertension Type 2 diabetes mellitus without complication, without long-term current use of insulin ([facility]) Other insomnia documented in this encounter [facility]* Diagnosis Anxiety and depression ([facility])- Primary Other insomnia Class 2 severe obesity due to excess calories with serious comorbidity and body mass index (BMI) of 37.0 to 37.9 in adult ([facility]) Type 2 diabetes mellitus without complication, without long-term current use of insulin ([facility]) ROLANDO (obstructive sleep apnea) Obstructive sleep apnea [...] 37.0-37.9, adult Chronic respiratory failure with hypoxia (CMS/[facility]) Type 2 diabetes mellitus with other specified complication (CMS/[facility]) Atherosclerosis of aorta (CMS/HCC) Atherosclerosis of aorta Mixed hyperlipidemia (CMS/HCC) Mixed hyperlipidemia Anxiety and depression (CMS/HCC) Restless leg syndrome Restless legs syndrome (RLS) Primary hypertension (CMS/HCC) Unspecified essential hypertension Type 2 diabetes mellitus without complication, without long-term current use of insulin (CMS/[facility]) Right upper quadrant abdominal pain COPD mixed type (CMS/HCC) Gastroesophageal reflux disease without esophagitis Esophageal reflux Anxiety and depression (CMS/HCC)- Primary Mixed hyperlipidemia (CMS/HCC) Mixed hyperlipidemia Restless leg syndrome Restless legs syndrome (RLS) Primary hypertension (CMS/HCC) Unspecified essential hypertension Type 2 diabetes mellitus without complication, without long-term current use of insulin ([facility]) Other insomnia Rash- Primary Rash and other nonspecific skin eruption Essential (primary) hypertension (CMS/HCC) Unspecified essential hypertension Edema of both lower extremities Class 2 severe obesity due to excess calories with serious comorbidity and body mass index (BMI) of 37.0 to 37.9 in adult ([facility]/HCC) ROLANDO (obstructive sleep apnea) Obstructive sleep apnea (adult) (pediatric) Type 2 diabetes mellitus without complication, without long-term current use of insulin ([facility]) Gastroenteritis Other and unspecified noninfectious gastroenteritis and colitis Iron deficiency anemia, unspecified iron deficiency anemia type documented in this encounter [facility]Evaluation [facility]* Diagnosis Anxiety and depression (CMS/HCC)- Primary Other insomnia Class 2 severe obesity due to excess calories with serious comorbidity and body mass index (BMI) of 37.0 to 37.9 in adult ([facility]/HCC) Type 2 diabetes mellitus without complication, without [...] Morbid (severe) obesity due to excess calories (CMS/[facility]) Essential (primary) hypertension (CMS/[facility]) Unspecified essential hypertension Body mass index (BMI) 37.0-37.9, adult Chronic respiratory failure with hypoxia (CMS/[facility]) Type 2 diabetes mellitus with other specified complication (CMS/[facility]) Atherosclerosis of aorta (CMS/HCC) Atherosclerosis of aorta Mixed hyperlipidemia (CMS/HCC) Mixed hyperlipidemia Anxiety and depression (CMS/[facility]) Restless leg syndrome Restless legs syndrome (RLS) Primary hypertension (CMS/HCC) Unspecified essential hypertension Type 2 diabetes mellitus without complication, without long-term current use of insulin ([facility]) Right upper quadrant abdominal pain COPD mixed type (CMS/[facility]) Gastroesophageal reflux disease without esophagitis Esophageal reflux Anxiety and depression (CMS/HCC)- Primary Mixed hyperlipidemia (CMS/HCC) Mixed hyperlipidemia Restless leg syndrome Restless legs syndrome (RLS) Primary hypertension (CMS/[facility]) Unspecified essential hypertension Type 2 diabetes mellitus without complication, without long-term current use of insulin ([facility]) Other insomnia Rash- Primary Rash and other nonspecific skin eruption Essential (primary) hypertension (CMS/HCC) Unspecified essential hypertension Edema of both lower extremities Class 2 severe obesity due to excess calories with serious comorbidity and body mass index (BMI) of 37.0 to 37.9 in adult ([facility]) ROLANDO (obstructive sleep apnea) Obstructive sleep apnea (adult) (pediatric) Type 2 diabetes mellitus without complication, without long-term current use of insulin ([facility]) Gastroenteritis Other and unspecified noninfectious gastroenteritis and colitis Iron deficiency anemia, unspecified iron deficiency anemia type Weight loss, unintentional- Primary Loss of weight Chronic respiratory failure with hypoxia (CMS/[facility]) Morbid (severe) obesity due to excess calories (CMS/HCC) Essential (primary) hypertension (CMS/HCC) Unspecified essential hypertension Class 2 severe obesity due to excess calories with serious comorbidity and body mass index (BMI) of 37.0 to 37.9 in adult (CMS/HCC) Rash Rash and other nonspecific skin eruption [...] (BMI) of 37.0 to 37.9 in adult (CMS/[facility]) Type 2 diabetes mellitus without complication, without [...] 37.0-37.9, adult Chronic respiratory failure with hypoxia (CMS/[facility]) Type 2 diabetes mellitus with other specified [...] without esophagitis Esophageal reflux Anxiety and depression ([facility])- Primary Mixed hyperlipidemia ([facility]) Mixed hyperlipidemia Restless leg syndrome Restless legs syndrome (RLS) Primary hypertension ([facility]) Unspecified essential hypertension Type 2 diabetes mellitus without complication, without long-term current use of insulin ([facility]) Other insomnia Rash- Primary Rash and other nonspecific skin eruption Essential (primary) hypertension ([facility]) Unspecified essential hypertension Edema of both lower extremities Class 2 severe obesity due to excess calories with serious comorbidity and body mass index (BMI) of 37.0 to 37.9 in adult ([facility]) ROLANDO (obstructive sleep apnea) Obstructive sleep apnea (adult) (pediatric) Type 2 diabetes mellitus without complication, without long-term current use of insulin ([facility]) Gastroenteritis Other and unspecified noninfectious gastroenteritis and colitis Iron deficiency anemia, unspecified iron deficiency anemia type Weight loss, unintentional- Primary Loss of weight Chronic respiratory failure with hypoxia ([facility]) Morbid (severe) obesity due to excess calories ([facility]) Essential (primary) hypertension ([facility]) Unspecified essential hypertension Class 2 severe obesity due to excess calories with serious comorbidity and body mass index (BMI) of 37.0 to 37.9 in adult ([facility]) Rash Rash and other nonspecific skin eruption Tobacco dependence syndrome Tobacco use disorder Anxiety and depression ([facility]) Mixed hyperlipidemia ([facility]) Mixed hyperlipidemia Iron deficiency anemia, unspecified iron deficiency anemia type Restless leg syndrome Restless legs syndrome (RLS) Primary hypertension ([facility]) Unspecified essential hypertension Gastroesophageal reflux disease without esophagitis Esophageal reflux Type 2 diabetes mellitus without complication, without long-term current use of insulin ([facility]) Edema of both lower extremities Nausea and vomiting, unspecified vomiting type Diarrhea, unspecified type Anxiety and depression ([facility]) Restless leg syndrome Restless legs syndrome (RLS) Other insomnia documented in [facility] encounter [facility]* Diagnosis Anxiety and depression ([facility])- Primary Other insomnia Class 2 severe obesity due to excess calories with serious comorbidity and body mass index (BMI) of 37.0 to 37.9 in adult ([facility]) Type 2 diabetes mellitus without complication, without long-term current use of insulin ([facility]) ROLANDO (obstructive sleep apnea) Obstructive sleep apnea [...] Morbid (severe) obesity due to excess calories (CMS/[facility]) Essential (primary) hypertension (CMS/HCC) Unspecified essential hypertension Body mass index (BMI) 37.0-37.9, adult Chronic respiratory failure with hypoxia ([facility]) Type 2 diabetes mellitus with other specified complication ([facility]) Atherosclerosis of aorta (CMS/HCC) Atherosclerosis of aorta Mixed hyperlipidemia (CMS/HCC) Mixed hyperlipidemia Anxiety and depression (CMS/HCC) Restless leg syndrome Restless legs syndrome (RLS) Primary hypertension (CMS/[facility]) Unspecified essential hypertension Type 2 diabetes mellitus without complication, without long-term current use of insulin ([facility]) Right upper quadrant abdominal pain COPD mixed type (CMS/HCC) Gastroesophageal reflux disease without esophagitis Esophageal reflux Anxiety and depression (CMS/HCC)- Primary Mixed hyperlipidemia (CMS/HCC) Mixed hyperlipidemia Restless leg syndrome Restless legs syndrome (RLS) Primary hypertension (CMS/[facility]) Unspecified essential hypertension Type 2 diabetes mellitus without complication, without long-term current use of insulin ([facility]) Other insomnia Rash- Primary Rash and other nonspecific skin eruption Essential (primary) hypertension (CMS/HCC) Unspecified essential hypertension Edema of both lower extremities Class 2 severe obesity due to excess calories with serious comorbidity and body mass index (BMI) of 37.0 to 37.9 in adult ([facility]) ROLANDO (obstructive sleep apnea) Obstructive sleep apnea (adult) (pediatric) Type 2 diabetes mellitus without complication, without long-term current use of insulin ([facility]) Gastroenteritis Other and unspecified noninfectious gastroenteritis and colitis Iron deficiency anemia, unspecified iron deficiency anemia type Weight loss, unintentional- Primary Loss of weight Chronic respiratory failure with hypoxia ([facility]) Morbid (severe) obesity due to excess calories (CMS/HCC) Essential (primary) hypertension ([facility]) Unspecified essential hypertension Class 2 severe obesity due to excess calories with serious comorbidity and body mass index (BMI) of 37.0 to 37.9 in adult (CMS/HCC) Rash Rash and other nonspecific skin eruption Tobacco dependence syndrome Tobacco use disorder Anxiety and depression (CMS/HCC) Mixed hyperlipidemia (CMS/HCC) Mixed hyperlipidemia Iron deficiency anemia, unspecified iron deficiency anemia type Restless leg syndrome Restless legs syndrome (RLS) Primary hypertension (CMS/HCC) Unspecified essential hypertension Gastroesophageal reflux disease without esophagitis Esophageal reflux Type 2 diabetes mellitus without complication, without long-term current use of insulin ([facility]) Edema of both lower extremities Nausea and vomiting, unspecified vomiting type Diarrhea, unspecified type Arthritis- Primary Unspecified arthropathy, site unspecified documented [facility] encounter [facility] Diagnosis Anxiety and depression (CMS/HCC)- Primary Other insomnia Class 2 severe obesity due to excess calories with serious comorbidity and body mass index (BMI) of 37.0 to 37.9 in adult ([facility]) Type 2 diabetes mellitus without complication, without long-term current use of insulin (CMS/[facility]) ROLANDO (obstructive sleep apnea) Obstructive sleep apnea [...] to excess calories (CMS/HCC) Essential (primary) hypertension ([facility]) Unspecified essential hypertension Body mass index (BMI) 37.0-37.9, adult Chronic respiratory failure with hypoxia (CMS/[facility]) Type 2 diabetes mellitus with other specified complication (CMS/HCC) Atherosclerosis of aorta (CMS/HCC) Atherosclerosis of aorta Mixed hyperlipidemia (CMS/HCC) Mixed hyperlipidemia Anxiety and depression (CMS/HCC) Restless leg syndrome Restless legs syndrome (RLS) Primary hypertension (CMS/[facility]) Unspecified essential hypertension Type 2 diabetes mellitus without complication, without long-term current use of insulin (CMS/[facility]) Right upper quadrant abdominal pain COPD mixed type (CMS/HCC) Gastroesophageal reflux disease without esophagitis Esophageal reflux Anxiety and depression (CMS/HCC)- Primary Mixed hyperlipidemia (CMS/HCC) Mixed hyperlipidemia Restless leg syndrome Restless legs syndrome (RLS) Primary hypertension ([facility]) Unspecified essential hypertension Type 2 diabetes mellitus without complication, without long-term current use of insulin ([facility]) Other insomnia Rash- Primary Rash and other nonspecific skin eruption Essential (primary) hypertension ([facility]) Unspecified essential hypertension Edema of both lower extremities Class 2 severe obesity due to excess calories with serious comorbidity and body mass index (BMI) of 37.0 to 37.9 in adult ([facility]) ROLANDO (obstructive sleep apnea) Obstructive sleep apnea (adult) (pediatric) Type 2 diabetes mellitus without complication, without long-term current use of insulin ([facility]) Gastroenteritis Other and unspecified noninfectious gastroenteritis and colitis Iron deficiency anemia, unspecified iron deficiency anemia type Weight loss, unintentional- Primary Loss of weight Chronic respiratory failure with hypoxia ([facility]) Morbid (severe) obesity due to excess calories ([facility]) Essential (primary) hypertension ([facility]) Unspecified essential hypertension Class 2 severe obesity due to excess calories with serious comorbidity and body mass index (BMI) of 37.0 to 37.9 in adult ([facility]) Rash Rash and other nonspecific skin eruption Tobacco dependence syndrome Tobacco use disorder Anxiety and depression ([facility]) Mixed hyperlipidemia ([facility]) Mixed hyperlipidemia Iron deficiency anemia, unspecified iron deficiency anemia type Restless leg syndrome Restless legs syndrome (RLS) Primary hypertension ([facility]) Unspecified essential hypertension Gastroesophageal reflux disease without esophagitis Esophageal reflux Type 2 diabetes mellitus without complication, without long-term current use of insulin ([facility]) Edema of both lower extremities Nausea and vomiting, unspecified vomiting type Diarrhea, unspecified type Other atopic dermatitis Lichen simplex chronicus Lichenification and lichen simplex chronicus documented in this encounter [facility] HealthcareEvaluation note* Diagnosis Anxiety and depression ([facility])- Primary Other insomnia Class 2 severe obesity due to excess calories with serious comorbidity and body mass index (BMI) of 37.0 to 37.9 in adult ([facility]) Type 2 diabetes mellitus without complication, without long-term current use of insulin ([facility]) ROLANDO (obstructive sleep apnea) Obstructive sleep apnea (adult) (pediatric) Other insomnia- Primary ROLANDO (obstructive sleep apnea) Obstructive sleep apnea (adult) (pediatric) COPD mixed type ([facility]) Tobacco dependence syndrome Tobacco use disorder BMI 37.0-37.9, adult Anxiety and depression (CMS/HCC) Restless leg syndrome Restless legs syndrome (RLS) Other insomnia- Primary Anxiety and depression (CMS/HCC) Restless leg syndrome Restless legs syndrome (RLS) Acute non-recurrent maxillary sinusitis Right upper quadrant abdominal pain Other fatigue- Primary Morbid (severe) obesity due to excess calories (CMS/[facility]) Essential (primary) hypertension (CMS/HCC) Unspecified essential hypertension Body mass index (BMI) 37.0-37.9, adult Chronic respiratory failure with hypoxia (CMS/[facility]) Type 2 diabetes mellitus with other specified complication (CMS/[facility]) Atherosclerosis of aorta (CMS/HCC) Atherosclerosis of aorta Mixed hyperlipidemia (CMS/HCC) Mixed hyperlipidemia Anxiety and depression (CMS/[facility]) Restless leg syndrome Restless legs syndrome (RLS) Primary hypertension (CMS/[facility]) Unspecified essential hypertension Type 2 diabetes mellitus without complication, without long-term current use of insulin (CMS/[facility]) Right upper quadrant abdominal pain COPD mixed type ([facility]) Gastroesophageal reflux disease without esophagitis Esophageal reflux Anxiety and depression (CMS/[facility])- Primary Mixed hyperlipidemia (CMS/HCC) Mixed hyperlipidemia Restless leg syndrome Restless legs syndrome (RLS) Primary hypertension (CMS/[facility]) Unspecified essential hypertension Type 2 diabetes mellitus without complication, without long-term current use of insulin ([facility]) Other insomnia Rash- Primary Rash and other nonspecific skin eruption Essential (primary) hypertension ([facility]) Unspecified essential hypertension Edema of both lower extremities Class 2 severe obesity due to excess calories with serious comorbidity and body mass index (BMI) of 37.0 to 37.9 in adult ([facility]) ROLANDO (obstructive sleep apnea) Obstructive sleep apnea (adult) (pediatric) Type 2 diabetes mellitus without complication, without long-term current use of insulin ([facility]) Gastroenteritis Other and unspecified noninfectious gastroenteritis and colitis Iron deficiency anemia, unspecified iron deficiency anemia type Weight loss, unintentional- Primary Loss of weight Chronic respiratory failure with hypoxia ([facility]) Morbid (severe) obesity due to excess calories (CMS/[facility]) Essential (primary) hypertension ([facility]) Unspecified essential hypertension Class 2 severe obesity due to excess calories with serious comorbidity and body mass index (BMI) of 37.0 to 37.9 in adult ([facility]) Rash Rash and other nonspecific skin eruption [...] vomiting, unspecified vomiting type Diarrhea, unspecified type Diarrhea, unspecified type- Primary Occult blood positive stool Nonspecific abnormal finding in stool contents Weight loss, unintentional Loss of weight documented in this encounter [facility] HealthcareEvaluation note* Diagnosis Anxiety and depression (CMS/HCC)- Primary Other insomnia Class 2 severe obesity due to excess calories with serious comorbidity and body mass index (BMI) of 37.0 to 37.9 in adult ([facility]) Type 2 diabetes mellitus without complication, without long-term current use of insulin (CMS/[facility]) ROLANDO (obstructive sleep apnea) Obstructive sleep apnea [...] to excess calories (CMS/HCC) Essential (primary) hypertension ([facility]) Unspecified essential hypertension Body mass index (BMI) 37.0-37.9, adult Chronic respiratory failure with hypoxia (CMS/[facility]) Type 2 diabetes mellitus with other specified complication (CMS/HCC) Atherosclerosis of aorta (CMS/HCC) Atherosclerosis of aorta Mixed hyperlipidemia (CMS/HCC) Mixed hyperlipidemia Anxiety and depression (CMS/HCC) Restless leg syndrome Restless legs syndrome (RLS) Primary hypertension (CMS/HCC) Unspecified essential hypertension Type 2 diabetes mellitus without complication, without long-term current use of insulin (CMS/[facility]) Right upper quadrant abdominal pain COPD mixed type (CMS/HCC) Gastroesophageal reflux disease without esophagitis Esophageal reflux Anxiety and depression (CMS/HCC)- Primary Mixed hyperlipidemia (CMS/HCC) Mixed hyperlipidemia Restless leg syndrome Restless legs syndrome (RLS) Primary hypertension (CMS/HCC) Unspecified essential hypertension Type 2 diabetes mellitus without complication, without long-term current use of insulin ([facility]) Other insomnia Rash- Primary Rash and other nonspecific skin eruption Essential (primary) hypertension ([facility]) Unspecified essential hypertension Edema of both lower extremities Class 2 severe obesity due to excess calories with serious comorbidity and body mass index (BMI) of 37.0 to 37.9 in adult ([facility]) ROLANDO (obstructive sleep apnea) Obstructive sleep apnea (adult) (pediatric) Type 2 diabetes mellitus without complication, without long-term current use of insulin ([facility]) Gastroenteritis Other and unspecified noninfectious gastroenteritis and colitis Iron deficiency anemia, unspecified iron deficiency anemia type Weight loss, unintentional- Primary Loss of weight Chronic respiratory failure with hypoxia ([facility]) Morbid (severe) obesity due to excess calories ([facility]) Essential (primary) hypertension ([facility]) Unspecified essential hypertension Class 2 severe obesity due to excess calories with serious comorbidity and body mass index (BMI) of 37.0 to 37.9 in adult ([facility]) Rash Rash and other nonspecific skin eruption Tobacco dependence syndrome Tobacco use disorder Anxiety and depression ([facility]) Mixed hyperlipidemia ([facility]) Mixed hyperlipidemia Iron deficiency anemia, unspecified iron deficiency anemia type Restless leg syndrome Restless legs syndrome (RLS) Primary hypertension ([facility]) Unspecified essential hypertension Gastroesophageal reflux disease without esophagitis Esophageal reflux Type 2 diabetes mellitus without complication, without long-term current use of insulin ([facility]) Edema of both lower extremities Nausea and vomiting, unspecified vomiting type Diarrhea, unspecified type Irritable bowel syndrome with diarrhea- Primary Irritable bowel syndrome Centrilobular emphysema ([facility]) Chronic respiratory failure with hypoxia ([facility]) Essential (primary) hypertension ([facility]) Unspecified essential hypertension Gastroesophageal reflux disease without esophagitis Esophageal reflux Class 2 severe obesity due to excess calories with serious comorbidity and body mass index (BMI) of 37.0 to 37.9 in adult ([facility]) Occult blood positive stool Nonspecific abnormal finding in stool contents Tobacco dependence syndrome Tobacco use disorder Anxiety and depression ([facility]) documented in this encounter [facility] HealthcareEvaluation note* Diagnosis Anxiety and depression ([facility])- Primary Other insomnia Class 2 severe obesity due to excess calories with serious comorbidity and body mass index (BMI) of 37.0 to 37.9 in adult ([facility]/HCC) Type 2 diabetes mellitus without complication, without [...] to excess calories (CMS/HCC) Essential (primary) hypertension (CMS/[facility]) Unspecified essential hypertension Body mass index (BMI) 37.0-37.9, adult Chronic respiratory failure with hypoxia (CMS/[facility]) Type 2 diabetes mellitus with other specified complication (CMS/[facility]) Atherosclerosis of aorta (CMS/HCC) Atherosclerosis of aorta Mixed hyperlipidemia (CMS/HCC) Mixed hyperlipidemia Anxiety and depression (CMS/[facility]) Restless leg syndrome Restless legs syndrome (RLS) Primary hypertension (CMS/HCC) Unspecified essential hypertension Type 2 diabetes mellitus without complication, without long-term current use of insulin (CMS/[facility]) Right upper quadrant abdominal pain COPD mixed type (CMS/[facility]) Gastroesophageal reflux disease without esophagitis Esophageal reflux Anxiety and depression (CMS/HCC)- Primary Mixed hyperlipidemia (CMS/HCC) Mixed hyperlipidemia Restless leg syndrome Restless legs syndrome (RLS) Primary hypertension (CMS/[facility]) Unspecified essential hypertension Type 2 diabetes mellitus without complication, without long-term current use of insulin ([facility]) Other insomnia Rash- Primary Rash and other nonspecific skin eruption Essential (primary) hypertension (CMS/HCC) Unspecified essential hypertension Edema of both lower extremities Class 2 severe obesity due to excess calories with serious comorbidity and body mass index (BMI) of 37.0 to 37.9 in adult ([facility]/HCC) ROLANDO (obstructive sleep apnea) Obstructive sleep apnea (adult) (pediatric) Type 2 diabetes mellitus without complication, without long-term current use of insulin ([facility]) Gastroenteritis Other and unspecified noninfectious gastroenteritis and colitis Iron deficiency anemia, unspecified iron deficiency anemia type Weight loss, unintentional- Primary Loss of weight Chronic respiratory failure with hypoxia (CMS/HCC) Morbid (severe) obesity due to excess calories (CMS/[facility]) Essential (primary) hypertension ([facility]) Unspecified essential hypertension Class 2 severe obesity due to excess calories with serious comorbidity and body mass index (BMI) of 37.0 to 37.9 in adult ([facility]) Rash Rash and other nonspecific skin eruption Tobacco dependence syndrome Tobacco use disorder Anxiety and depression ([facility]) Mixed hyperlipidemia ([facility]) Mixed hyperlipidemia Iron deficiency anemia, unspecified iron deficiency anemia type Restless leg syndrome Restless legs syndrome (RLS) Primary hypertension ([facility]) Unspecified essential hypertension Gastroesophageal reflux disease without esophagitis Esophageal reflux Type 2 diabetes mellitus without complication, without long-term current use of insulin ([facility]) Edema of both lower extremities Nausea and vomiting, unspecified vomiting type Diarrhea, unspecified type Irritable bowel syndrome with diarrhea- Primary Irritable bowel syndrome Centrilobular emphysema ([facility]) Chronic respiratory failure with hypoxia ([facility]) Essential (primary) hypertension ([facility]) Unspecified essential hypertension Gastroesophageal reflux disease without esophagitis Esophageal reflux Class 2 severe obesity due to excess calories with serious comorbidity and body mass index (BMI) of 37.0 to 37.9 in adult ([facility]) Occult blood positive stool Nonspecific abnormal finding in stool contents Tobacco dependence syndrome Tobacco use disorder Anxiety and depression ([facility]) Other atopic dermatitis documented in this encounter [facility] HealthcareEvaluation note* Diagnosis Anxiety and depression ([facility])- Primary Other insomnia Class 2 severe obesity due to excess calories with serious comorbidity and body mass index (BMI) of 37.0 to 37.9 in adult ([facility]) Type 2 diabetes mellitus without complication, without long-term current use of insulin ([facility]) ROLANDO (obstructive sleep apnea) Obstructive sleep apnea (adult) (pediatric) Other insomnia- Primary ROLANDO (obstructive sleep apnea) Obstructive sleep apnea (adult) (pediatric) COPD mixed type ([facility]) Tobacco dependence syndrome Tobacco use disorder BMI 37.0-37.9, adult Anxiety and depression ([facility]) Restless leg syndrome Restless legs syndrome (RLS) Other insomnia- Primary Anxiety and depression ([facility]) Restless leg syndrome Restless legs syndrome (RLS) Acute non-recurrent maxillary sinusitis Right upper quadrant abdominal pain Other fatigue- Primary Morbid (severe) obesity due to excess calories ([facility]) Essential (primary) hypertension ([facility]) Unspecified essential hypertension Body mass index (BMI) 37.0-37.9, adult Chronic respiratory failure with hypoxia ([facility]) Type 2 diabetes mellitus with other specified complication ([facility] Atherosclerosis of aorta ([facility] Atherosclerosis of aorta Mixed hyperlipidemia ([facility] Mixed hyperlipidemia Anxiety and depression ([facility]) Restless leg syndrome Restless legs syndrome (RLS) Primary hypertension ([facility]) Unspecified essential hypertension Type 2 diabetes mellitus without complication, without long-term current use of insulin ([facility]) Right upper quadrant abdominal pain COPD mixed type ([facility]) Gastroesophageal reflux disease without esophagitis Esophageal reflux Anxiety and depression ([facility])- Primary Mixed hyperlipidemia ([facility]) Mixed hyperlipidemia Restless leg syndrome Restless legs syndrome (RLS) Primary hypertension ([facility]) Unspecified essential hypertension Type 2 diabetes mellitus without complication, without long-term current use of insulin ([facility]) Other insomnia Rash- Primary Rash and other nonspecific skin eruption Essential (primary) hypertension ([facility]) Unspecified essential hypertension Edema of both lower extremities Class 2 severe obesity due to excess calories with serious comorbidity and body mass index (BMI) of 37.0 to 37.9 in adult ([facility]) ROLANDO (obstructive sleep apnea) Obstructive sleep apnea (adult) (pediatric) Type 2 diabetes mellitus without complication, without long-term current use of insulin ([facility]) Gastroenteritis Other and unspecified noninfectious gastroenteritis and colitis Iron deficiency anemia, unspecified iron deficiency anemia type Weight loss, unintentional- Primary Loss of weight Chronic respiratory failure with hypoxia ([facility]) Morbid (severe) obesity due to excess calories ([facility]) Essential (primary) hypertension ([facility]) Unspecified essential hypertension Class 2 severe obesity due to excess calories with serious comorbidity and body mass index (BMI) of 37.0 to 37.9 in adult ([facility]) Rash Rash and other nonspecific skin eruption Tobacco dependence syndrome Tobacco use disorder Anxiety and depression ([facility]) Mixed hyperlipidemia ([facility]) Mixed hyperlipidemia Iron deficiency anemia, unspecified iron deficiency anemia type Restless leg syndrome Restless legs syndrome (RLS) Primary hypertension ([facility]) Unspecified essential hypertension Gastroesophageal reflux disease without esophagitis Esophageal reflux Type 2 diabetes mellitus without complication, without long-term current use of insulin ([facility]) Edema of both lower extremities Nausea and vomiting, unspecified vomiting type Diarrhea, unspecified type Irritable bowel syndrome with diarrhea- Primary Irritable bowel syndrome Centrilobular emphysema (CMS/HCC) Chronic respiratory failure with hypoxia (CMS/HCC) Essential (primary) hypertension (CMS/HCC) Unspecified essential hypertension Gastroesophageal reflux disease without esophagitis Esophageal reflux Class 2 severe obesity due to excess calories with serious comorbidity and body mass index (BMI) of 37.0 to 37.9 in adult (CMS/HCC) Occult blood positive stool Nonspecific abnormal finding in stool contents Tobacco dependence syndrome Tobacco use disorder Anxiety and depression (CMS/HCC) Edema of both lower extremities- Primary documented in this encounter [facility]* Diagnosis Anxiety and depression (CMS/HCC)- Primary Other insomnia Class 2 severe obesity due to excess calories with serious comorbidity and body mass index (BMI) of 37.0 to 37.9 in adult ([facility]/HCC) Type 2 diabetes mellitus without complication, without long-term current use of insulin ROLANDO (obstructive sleep apnea) Obstructive sleep apnea [...] 2 diabetes mellitus with other specified complication Atherosclerosis of aorta (CMS/HCC) Atherosclerosis of aorta Mixed hyperlipidemia (CMS/HCC) Mixed hyperlipidemia Anxiety and depression (CMS/HCC) Restless leg syndrome Restless legs syndrome (RLS) Primary hypertension (CMS/HCC) Unspecified essential hypertension Type 2 diabetes mellitus without complication, without long-term current use of insulin Right upper quadrant abdominal pain COPD mixed type (CMS/HCC) Gastroesophageal reflux disease without esophagitis Esophageal reflux Anxiety and depression (CMS/HCC)- Primary Mixed hyperlipidemia (CMS/HCC) Mixed hyperlipidemia Restless leg syndrome Restless legs syndrome (RLS) Primary hypertension (CMS/HCC) Unspecified essential hypertension Type 2 diabetes mellitus without complication, without long-term current use of insulin Other insomnia Rash- Primary Rash and other nonspecific skin eruption Essential (primary) hypertension ([facility]) Unspecified essential hypertension Edema of both lower extremities Class 2 severe obesity due to excess calories with serious comorbidity and body mass index (BMI) of 37.0 to 37.9 in adult ([facility]) ROLANDO (obstructive sleep apnea) Obstructive sleep apnea (adult) (pediatric) Type 2 diabetes mellitus without complication, without long-term current use of insulin Gastroenteritis Other and unspecified noninfectious gastroenteritis and colitis Iron deficiency anemia, unspecified iron deficiency anemia type Weight loss, unintentional- Primary Loss of weight Chronic respiratory failure with hypoxia ([facility]) Morbid (severe) obesity due to excess calories ([facility]) Essential (primary) hypertension ([facility]) Unspecified essential hypertension Class 2 severe obesity due to excess calories with serious comorbidity and body mass index (BMI) of 37.0 to 37.9 in adult ([facility]) Rash Rash and other nonspecific skin eruption Tobacco dependence syndrome Tobacco use disorder Anxiety and depression ([facility]) Mixed hyperlipidemia ([facility]) Mixed hyperlipidemia Iron deficiency anemia, unspecified iron deficiency anemia type Restless leg syndrome Restless legs syndrome (RLS) Primary hypertension ([facility]) Unspecified essential hypertension Gastroesophageal reflux disease without esophagitis Esophageal reflux Type 2 diabetes mellitus without complication, without long-term current use of insulin Edema of both lower extremities Nausea and vomiting, unspecified vomiting type Diarrhea, unspecified type Irritable bowel syndrome with diarrhea- Primary Irritable bowel syndrome Centrilobular emphysema ([facility]) Chronic respiratory failure with hypoxia ([facility]) Essential (primary) hypertension ([facility]) Unspecified essential hypertension Gastroesophageal reflux disease without esophagitis Esophageal reflux Class 2 severe obesity due to excess calories with serious comorbidity and body mass index (BMI) of 37.0 to 37.9 in adult ([facility]) Occult blood positive stool Nonspecific abnormal finding in stool contents Tobacco dependence syndrome Tobacco use disorder Anxiety and depression ([facility]) Anxiety and depression ([facility]) documented in this encounter [facility]* Diagnosis Anxiety and depression ([facility])- Primary Other insomnia Class 2 severe obesity due to excess calories with serious comorbidity and body mass index (BMI) of 37.0 to 37.9 in adult ([facility]) Type 2 diabetes mellitus without complication, without long-term current use of insulin ROLANDO (obstructive sleep apnea) Obstructive sleep apnea (adult) (pediatric) Other insomnia- Primary ROLANDO (obstructive sleep apnea) Obstructive sleep apnea (adult) (pediatric) COPD mixed type ([facility]/HCC) Tobacco dependence syndrome Tobacco use disorder BMI 37.0-37.9, adult Anxiety and depression (CMS/[facility]) Restless leg syndrome Restless legs syndrome (RLS) Other insomnia- Primary Anxiety and depression (CMS/HCC) Restless leg syndrome Restless legs syndrome (RLS) Acute non-recurrent maxillary sinusitis Right upper quadrant abdominal pain Other fatigue- Primary Morbid (severe) obesity due to excess calories ([facility]) Essential (primary) hypertension ([facility]) Unspecified essential hypertension Body mass index (BMI) 37.0-37.9, adult Chronic respiratory failure with hypoxia ([facility]) Type 2 diabetes mellitus with other specified complication Atherosclerosis of aorta ([facility]) Atherosclerosis of aorta Mixed hyperlipidemia ([facility] Mixed hyperlipidemia Anxiety and depression ([facility]) Restless leg syndrome Restless legs syndrome (RLS) Primary hypertension ([facility]) Unspecified essential hypertension Type 2 diabetes mellitus without complication, without long-term current use of insulin Right upper quadrant abdominal pain COPD mixed type (CMS/HCC) Gastroesophageal reflux disease without esophagitis Esophageal reflux Anxiety and depression ([facility])- Primary Mixed hyperlipidemia ([facility]) Mixed hyperlipidemia Restless leg syndrome Restless legs syndrome (RLS) Primary hypertension ([facility]) Unspecified essential hypertension Type 2 diabetes mellitus without complication, without long-term current use of insulin Other insomnia Rash- Primary Rash and other nonspecific skin eruption Essential (primary) hypertension ([facility]) Unspecified essential hypertension Edema of both lower extremities Class 2 severe obesity due to excess calories with serious comorbidity and body mass index (BMI) of 37.0 to 37.9 in adult ([facility]) ROLANDO (obstructive sleep apnea) Obstructive sleep apnea (adult) (pediatric) Type 2 diabetes mellitus without complication, without long-term current use of insulin Gastroenteritis Other and unspecified noninfectious gastroenteritis and colitis Iron deficiency anemia, unspecified iron deficiency anemia type Weight loss, unintentional- Primary Loss of weight Chronic respiratory failure with hypoxia ([facility]) Morbid (severe) obesity due to excess calories ([facility]) Essential (primary) hypertension ([facility]) Unspecified essential hypertension Class 2 severe obesity due to excess calories with serious comorbidity and body mass index (BMI) of 37.0 to 37.9 in adult (CMS/HCC) Rash Rash and other nonspecific skin eruption Tobacco dependence syndrome Tobacco use disorder Anxiety and depression (CMS/HCC) Mixed hyperlipidemia (CMS/HCC) Mixed hyperlipidemia Iron deficiency anemia, unspecified iron deficiency anemia type Restless leg syndrome Restless legs syndrome (RLS) Primary hypertension (CMS/HCC) Unspecified essential hypertension Gastroesophageal reflux disease without esophagitis Esophageal reflux Type 2 diabetes mellitus without complication, without long-term current use of insulin Edema of both lower extremities Nausea and vomiting, unspecified vomiting type Diarrhea, unspecified type Irritable bowel syndrome with diarrhea- Primary Irritable bowel syndrome Centrilobular emphysema (CMS/HCC) Chronic respiratory failure with hypoxia (CMS/HCC) Essential (primary) hypertension ([facility]) Unspecified essential hypertension Gastroesophageal reflux disease without esophagitis Esophageal reflux Class 2 severe obesity due to excess calories with serious comorbidity and body mass index (BMI) of 37.0 to 37.9 in adult ([facility]) Occult blood positive stool Nonspecific abnormal finding in stool contents Tobacco dependence syndrome Tobacco use disorder Anxiety and depression ([facility]) Edema of both lower extremities- Primary documented in this encounter [facility]* Diagnosis Anxiety and depression (CMS/HCC)- Primary Other insomnia Class 2 severe obesity due to excess calories with serious comorbidity and body mass index (BMI) of 37.0 to 37.9 in adult ([facility]) Type 2 diabetes mellitus without complication, without long-term current use of insulin ROLANDO (obstructive sleep apnea) Obstructive sleep apnea (adult) (pediatric) Other insomnia- Primary ROLANDO (obstructive sleep apnea) Obstructive sleep apnea (adult) (pediatric) COPD mixed type ([facility]) Tobacco dependence syndrome Tobacco use disorder BMI 37.0-37.9, adult Anxiety and depression (CMS/HCC) Restless leg syndrome Restless legs syndrome (RLS) Other insomnia- Primary Anxiety and depression ([facility]/HCC) Restless leg syndrome Restless legs syndrome (RLS) Acute non-recurrent maxillary sinusitis Right upper quadrant abdominal pain Other fatigue- Primary Morbid (severe) obesity due to excess calories (CMS/HCC) Essential (primary) hypertension ([facility]) Unspecified essential hypertension Body mass index (BMI) 37.0-37.9, adult Chronic respiratory failure with hypoxia ([facility]) Type 2 diabetes mellitus with other specified complication Atherosclerosis of aorta (CMS/HCC) Atherosclerosis of aorta Mixed hyperlipidemia (CMS/HCC) Mixed hyperlipidemia Anxiety and depression ([facility]) Restless leg syndrome Restless legs syndrome (RLS) Primary hypertension ([facility]) Unspecified essential hypertension Type 2 diabetes mellitus without complication, without long-term current use of insulin Right upper quadrant abdominal pain COPD mixed type ([facility]) Gastroesophageal reflux disease without esophagitis Esophageal reflux Anxiety and depression ([facility])- Primary Mixed hyperlipidemia ([facility]) Mixed hyperlipidemia Restless leg syndrome Restless legs syndrome (RLS) Primary hypertension ([facility]) Unspecified essential hypertension Type 2 diabetes mellitus without complication, without long-term current use of insulin Other insomnia Rash- Primary Rash and other nonspecific skin eruption Essential (primary) hypertension ([facility]) Unspecified essential hypertension Edema of both lower extremities Class 2 severe obesity due to excess calories with serious comorbidity and body mass index (BMI) of 37.0 to 37.9 in adult ([facility]) ROLANDO (obstructive sleep apnea) Obstructive sleep apnea (adult) (pediatric) Type 2 diabetes mellitus without complication, without long-term current use of insulin Gastroenteritis Other and unspecified noninfectious gastroenteritis and colitis Iron deficiency anemia, unspecified iron deficiency anemia type Weight loss, unintentional- Primary Loss of weight Chronic respiratory failure with hypoxia ([facility]) Morbid (severe) obesity due to excess calories ([facility]) Essential (primary) hypertension ([facility]) Unspecified essential hypertension Class 2 severe obesity due to excess calories with serious comorbidity and body mass index (BMI) of 37.0 to 37.9 in adult ([facility]) Rash Rash and other nonspecific skin eruption Tobacco dependence syndrome Tobacco use disorder Anxiety and depression ([facility]) Mixed hyperlipidemia ([facility]) Mixed hyperlipidemia Iron deficiency anemia, unspecified iron deficiency anemia type Restless leg syndrome Restless legs syndrome (RLS) Primary hypertension ([facility]) Unspecified essential hypertension Gastroesophageal reflux disease without esophagitis Esophageal reflux Type 2 diabetes mellitus without complication, without long-term current use of insulin Edema of both lower extremities Nausea and vomiting, unspecified vomiting type Diarrhea, unspecified type Irritable bowel syndrome with diarrhea- Primary Irritable bowel syndrome Centrilobular emphysema ([facility]) Chronic respiratory failure with hypoxia ([facility]) Essential (primary) hypertension ([facility]) Unspecified essential hypertension Gastroesophageal reflux disease without esophagitis Esophageal reflux Class 2 severe obesity due to excess calories with serious comorbidity and body mass index (BMI) of 37.0 to 37.9 in adult ([facility]/HCC) Occult blood positive stool Nonspecific abnormal finding in stool contents Tobacco dependence syndrome Tobacco use disorder Anxiety and depression ([facility]) Encounter for wellness examination in adult- Primary Essential (primary) hypertension ([facility]/HCC) Unspecified essential hypertension Gastroesophageal reflux disease without esophagitis Esophageal reflux Type 2 diabetes mellitus without complication, without long-term current use of insulin Iron deficiency anemia, unspecified iron deficiency anemia type Anxiety and depression (CMS/HCC) Mixed hyperlipidemia ([facility]/HCC) Mixed hyperlipidemia Edema of both lower extremities Restless leg syndrome Restless legs syndrome (RLS) Primary hypertension ([facility]) Unspecified essential hypertension Other insomnia COPD exacerbation ([facility]) Obstructive chronic bronchitis with exacerbation documented in this encounter [facility]* Diagnosis Anxiety and depression ([facility])- Primary Other insomnia Class 2 severe obesity due to excess calories with serious comorbidity and body mass index (BMI) of 37.0 to 37.9 in adult ([facility]) Type 2 diabetes mellitus without complication, without long-term current use of insulin ROLANDO (obstructive sleep apnea) Obstructive sleep apnea (adult) (pediatric) Other insomnia- Primary ROLANDO (obstructive sleep apnea) Obstructive sleep apnea (adult) (pediatric) COPD mixed type ([facility]/HCC) Tobacco dependence syndrome Tobacco use disorder BMI 37.0-37.9, adult Anxiety and depression ([facility]) Restless leg syndrome Restless legs syndrome (RLS) Other insomnia- Primary Anxiety and depression ([facility]) Restless leg syndrome Restless legs syndrome (RLS) Acute non-recurrent maxillary sinusitis Right upper quadrant abdominal pain Other fatigue- Primary Morbid (severe) obesity due to excess calories ([facility]) Essential (primary) hypertension ([facility]) Unspecified essential hypertension Body mass index (BMI) 37.0-37.9, adult Chronic respiratory failure with hypoxia ([facility]) Type 2 diabetes mellitus with other specified complication Atherosclerosis of aorta ([facility]) Atherosclerosis of aorta Mixed hyperlipidemia ([facility]/HCC) Mixed hyperlipidemia Anxiety and depression ([facility]) Restless leg syndrome Restless legs syndrome (RLS) Primary hypertension ([facility]) Unspecified essential hypertension Type 2 diabetes mellitus without complication, without long-term current use of insulin Right upper quadrant abdominal pain COPD mixed type (CMS/HCC) Gastroesophageal reflux disease without esophagitis Esophageal reflux Anxiety and depression ([facility]/HCC)- Primary Mixed hyperlipidemia (CMS/HCC) Mixed hyperlipidemia Restless leg syndrome Restless legs syndrome (RLS) Primary hypertension ([facility]) Unspecified essential hypertension Type 2 diabetes mellitus without complication, without long-term current use of insulin Other insomnia Rash- Primary Rash and other nonspecific skin eruption Essential (primary) hypertension ([facility]) Unspecified essential hypertension Edema of both lower extremities Class 2 severe obesity due to excess calories with serious comorbidity and body mass index (BMI) of 37.0 to 37.9 in adult ([facility]) ROLANDO (obstructive sleep apnea) Obstructive sleep apnea (adult) (pediatric) Type 2 diabetes mellitus without complication, without long-term current use of insulin Gastroenteritis Other and unspecified noninfectious gastroenteritis and colitis Iron deficiency anemia, unspecified iron deficiency anemia type Weight loss, unintentional- Primary Loss of weight Chronic respiratory failure with hypoxia ([facility]) Morbid (severe) obesity due to excess calories ([facility]) Essential (primary) hypertension ([facility]) Unspecified essential hypertension Class 2 severe obesity due to excess calories with serious comorbidity and body mass index (BMI) of 37.0 to 37.9 in adult ([facility]) Rash Rash and other nonspecific skin eruption Tobacco dependence syndrome Tobacco use disorder Anxiety and depression ([facility]) Mixed hyperlipidemia ([facility]) Mixed hyperlipidemia Iron deficiency anemia, unspecified iron deficiency anemia type Restless leg syndrome Restless legs syndrome (RLS) Primary hypertension ([facility]) Unspecified essential hypertension Gastroesophageal reflux disease without esophagitis Esophageal reflux Type 2 diabetes mellitus without complication, without long-term current use of insulin Edema of both lower extremities Nausea and vomiting, unspecified vomiting type Diarrhea, unspecified type Irritable bowel syndrome with diarrhea- Primary Irritable bowel syndrome Centrilobular emphysema ([facility]) Chronic respiratory failure with hypoxia ([facility]) Essential (primary) hypertension ([facility]) Unspecified essential hypertension Gastroesophageal reflux disease without esophagitis Esophageal reflux Class 2 severe obesity due to excess calories with serious comorbidity and body mass index (BMI) of 37.0 to 37.9 in adult ([facility]) Occult blood positive stool Nonspecific abnormal finding in stool contents Tobacco dependence syndrome Tobacco use disorder Anxiety and depression ([facility]) Encounter for wellness examination in adult- Primary Essential (primary) hypertension ([facility]) Unspecified essential hypertension Gastroesophageal reflux disease without esophagitis Esophageal reflux Type 2 diabetes mellitus without complication, without long-term current use of insulin Iron deficiency anemia, unspecified iron deficiency anemia type Anxiety and depression (CMS/HCC) Mixed hyperlipidemia (CMS/HCC) Mixed hyperlipidemia Edema of both lower extremities Restless leg syndrome Restless legs syndrome (RLS) Primary hypertension (CMS/HCC) Unspecified essential hypertension Other insomnia COPD exacerbation (CMS/HCC) Obstructive chronic bronchitis with exacerbation Osteopenia after menopause- Primary documented in this encounter [facility] HealthcareEvaluation note* Diagnosis Anxiety and depression (CMS/HCC)- Primary Other insomnia Class 2 severe obesity due to excess calories with serious comorbidity and body mass index (BMI) of 37.0 to 37.9 in adult (CMS/HCC) Type 2 diabetes mellitus without complication, without long-term current use of insulin ROLANDO (obstructive sleep apnea) Obstructive sleep apnea [...] to excess calories (CMS/HCC) Essential (primary) hypertension ([facility]/HCC) Unspecified essential hypertension Body mass index (BMI) 37.0-37.9, adult Chronic respiratory failure with hypoxia ([facility]) Type 2 diabetes mellitus with other specified complication Atherosclerosis of aorta (CMS/HCC) Atherosclerosis of aorta Mixed hyperlipidemia (CMS/HCC) Mixed hyperlipidemia Anxiety and depression (CMS/HCC) Restless leg syndrome Restless legs syndrome (RLS) Primary hypertension (CMS/HCC) Unspecified essential hypertension Type 2 diabetes mellitus without complication, without long-term current use of insulin Right upper quadrant abdominal pain COPD mixed type (CMS/HCC) Gastroesophageal reflux disease without esophagitis Esophageal reflux Anxiety and depression (CMS/HCC)- Primary Mixed hyperlipidemia (CMS/HCC) Mixed hyperlipidemia Restless leg syndrome Restless legs syndrome (RLS) Primary hypertension (CMS/HCC) Unspecified essential hypertension Type 2 diabetes mellitus without complication, without long-term current use of insulin Other insomnia Rash- Primary Rash and other nonspecific skin eruption Essential (primary) hypertension (CMS/HCC) Unspecified essential hypertension Edema of both lower extremities Class 2 severe obesity due to excess calories with serious comorbidity and body mass index (BMI) of 37.0 to 37.9 in adult ([facility]) ROLANDO (obstructive sleep apnea) Obstructive sleep apnea (adult) (pediatric) Type 2 diabetes mellitus without complication, without long-term current use of insulin Gastroenteritis Other and unspecified noninfectious gastroenteritis and colitis Iron deficiency anemia, unspecified iron deficiency anemia type Weight loss, unintentional- Primary Loss of weight Chronic respiratory failure with hypoxia ([facility]) Morbid (severe) obesity due to excess calories ([facility]) Essential (primary) hypertension ([facility]) Unspecified essential hypertension Class 2 severe obesity due to excess calories with serious comorbidity and body mass index (BMI) of 37.0 to 37.9 in adult ([facility]) Rash Rash and other nonspecific skin eruption Tobacco dependence syndrome Tobacco use disorder Anxiety and depression ([facility]) Mixed hyperlipidemia ([facility]) Mixed hyperlipidemia Iron deficiency anemia, unspecified iron deficiency anemia type Restless leg syndrome Restless legs syndrome (RLS) Primary hypertension ([facility]) Unspecified essential hypertension Gastroesophageal reflux disease without esophagitis Esophageal reflux Type 2 diabetes mellitus without complication, without long-term current use of insulin Edema of both lower extremities Nausea and vomiting, unspecified vomiting type Diarrhea, unspecified type Irritable bowel syndrome with diarrhea- Primary Irritable bowel syndrome Centrilobular emphysema ([facility]) Chronic respiratory failure with hypoxia ([facility]) Essential (primary) hypertension ([facility]) Unspecified essential hypertension Gastroesophageal reflux disease without esophagitis Esophageal reflux Class 2 severe obesity due to excess calories with serious comorbidity and body mass index (BMI) of 37.0 to 37.9 in adult ([facility]) Occult blood positive stool Nonspecific abnormal finding in stool contents Tobacco dependence syndrome Tobacco use disorder Anxiety and depression ([facility]) Encounter for wellness examination in adult- Primary Essential (primary) hypertension ([facility]) Unspecified essential hypertension Gastroesophageal reflux disease without esophagitis Esophageal reflux Type 2 diabetes mellitus without complication, without long-term current use of insulin Iron deficiency anemia, unspecified iron deficiency anemia type Anxiety and depression ([facility]) Mixed hyperlipidemia ([facility]) Mixed hyperlipidemia Edema of both lower extremities Restless leg syndrome Restless legs syndrome (RLS) Primary hypertension ([facility]) Unspecified essential hypertension Other insomnia COPD exacerbation ([facility]) Obstructive chronic bronchitis with exacerbation Vitamin deficiency- Primary Unspecified vitamin deficiency documented in this encounter [facility]* Diagnosis Anxiety and depression- Primary Other insomnia Class 2 severe obesity due to excess calories with serious comorbidity and body mass index (BMI) of 37.0 to 37.9 in adult ([facility]) Type 2 diabetes mellitus without complication, without long-term current use of insulin ([facility]) ROLANDO (obstructive sleep apnea) Obstructive sleep apnea (adult) (pediatric) Other insomnia- Primary ROLANDO (obstructive sleep apnea) Obstructive sleep apnea (adult) (pediatric) COPD mixed type ([facility]) Tobacco dependence syndrome Tobacco use disorder BMI 37.0-37.9, adult Anxiety and depression Restless leg syndrome Restless legs syndrome (RLS) Other insomnia- Primary Anxiety and depression Restless leg syndrome Restless legs syndrome (RLS) Acute non-recurrent maxillary sinusitis Right upper quadrant abdominal pain Other fatigue- Primary Morbid (severe) obesity due to excess calories ([facility]) Essential (primary) hypertension Unspecified essential hypertension Body mass index (BMI) 37.0-37.9, adult Chronic respiratory failure with hypoxia ([facility]) Type 2 diabetes mellitus with other specified complication ([facility]) Atherosclerosis of aorta Mixed hyperlipidemia Mixed hyperlipidemia Anxiety and depression Restless leg syndrome Restless legs syndrome (RLS) Primary hypertension Unspecified essential hypertension Type 2 diabetes mellitus without complication, without long-term current use of insulin ([facility]) Right upper quadrant abdominal pain COPD mixed type ([facility]) Gastroesophageal reflux disease without esophagitis Esophageal reflux Anxiety and depression- Primary Mixed hyperlipidemia Mixed hyperlipidemia Restless leg syndrome Restless legs syndrome (RLS) Primary hypertension Unspecified essential hypertension Type 2 diabetes mellitus without complication, without long-term current use of insulin ([facility]) Other insomnia Rash- Primary Rash and other nonspecific skin eruption Essential (primary) hypertension Unspecified essential hypertension Edema of both lower extremities Class 2 severe obesity due to excess calories with serious comorbidity and body mass index (BMI) of 37.0 to 37.9 in adult ([facility]) ROLANDO (obstructive sleep apnea) Obstructive sleep apnea (adult) (pediatric) Type 2 diabetes mellitus without complication, without long-term current use of insulin ([facility]) Gastroenteritis Other and unspecified noninfectious gastroenteritis and colitis Iron deficiency anemia, unspecified iron deficiency anemia type Weight loss, unintentional- Primary Loss of weight Chronic respiratory failure with hypoxia ([facility]) Morbid (severe) obesity due to excess calories ([facility]) Essential (primary) hypertension Unspecified essential hypertension Class 2 severe obesity due to excess calories with serious comorbidity and body mass index (BMI) of 37.0 to 37.9 in adult ([facility] [facility]) Rash Rash and other nonspecific skin eruption Tobacco dependence syndrome Tobacco use disorder Anxiety and depression Mixed hyperlipidemia Mixed hyperlipidemia Iron deficiency anemia, unspecified iron deficiency anemia type Restless leg syndrome Restless legs syndrome (RLS) Primary hypertension Unspecified essential hypertension Gastroesophageal reflux disease without esophagitis Esophageal reflux Type 2 diabetes mellitus without complication, without long-term current use of insulin ([facility]) Edema of both lower extremities Nausea and vomiting, unspecified vomiting type Diarrhea, unspecified type Irritable bowel syndrome with diarrhea- Primary Irritable bowel syndrome Centrilobular emphysema ([facility]) Chronic respiratory failure with hypoxia ([facility]) Essential (primary) hypertension Unspecified essential hypertension Gastroesophageal reflux disease without esophagitis Esophageal reflux Class 2 severe obesity due to excess calories with serious comorbidity and body mass index (BMI) of 37.0 to 37.9 in adult ([facility]) Occult blood positive stool Nonspecific abnormal finding in stool contents Tobacco dependence syndrome Tobacco use disorder Anxiety and depression Encounter for wellness examination in adult- Primary Essential (primary) hypertension Unspecified essential hypertension Gastroesophageal reflux disease without esophagitis Esophageal reflux Type 2 diabetes mellitus without complication, without long-term current use of insulin ([facility]) Iron deficiency anemia, unspecified iron deficiency anemia type Anxiety and depression Mixed hyperlipidemia Mixed hyperlipidemia Edema of both lower extremities Restless leg syndrome Restless legs syndrome (RLS) Primary hypertension Unspecified essential hypertension Other insomnia COPD exacerbation ([facility]) Obstructive chronic bronchitis with exacerbation Anxiety and depression Restless leg syndrome Restless legs syndrome (RLS) Other insomnia documented in [facility]* Diagnosis Anxiety and depression- Primary Other insomnia Class 2 severe obesity due to excess calories with serious comorbidity and body mass index (BMI) of 37.0 to 37.9 in adult ([facility] [facility]) Type 2 diabetes mellitus without complication, without long-term current use of insulin ([facility]) ROLANDO (obstructive sleep apnea) Obstructive sleep apnea (adult) (pediatric) Other insomnia- Primary ROLANDO (obstructive sleep apnea) Obstructive sleep apnea (adult) (pediatric) COPD mixed type ([facility]) Tobacco dependence syndrome Tobacco use disorder BMI 37.0-37.9, adult Anxiety and depression Restless leg syndrome Restless legs syndrome (RLS) Other insomnia- Primary Anxiety and depression Restless leg syndrome Restless legs syndrome (RLS) Acute non-recurrent maxillary sinusitis Right upper quadrant abdominal pain Other fatigue- Primary Morbid (severe) obesity due to excess calories ([facility]) Essential (primary) hypertension Unspecified essential hypertension Body mass index (BMI) 37.0-37.9, adult Chronic respiratory failure with hypoxia (HCC) Type 2 diabetes mellitus with other specified complication (HCC) Atherosclerosis of aorta Mixed hyperlipidemia Mixed hyperlipidemia Anxiety and depression Restless leg syndrome Restless legs syndrome (RLS) Primary hypertension Unspecified essential hypertension Type 2 diabetes mellitus without complication, without long-term current use of insulin (HCC) Right upper quadrant abdominal pain COPD mixed type (HCC) Gastroesophageal reflux disease without esophagitis Esophageal reflux Anxiety and depression- Primary Mixed hyperlipidemia Mixed hyperlipidemia Restless leg syndrome Restless legs syndrome (RLS) Primary hypertension Unspecified essential hypertension Type 2 diabetes mellitus without complication, without long-term current use of insulin (HCC) Other insomnia Rash- Primary Rash and other nonspecific skin eruption Essential (primary) hypertension Unspecified essential hypertension Edema of both lower extremities Class 2 severe obesity due to excess calories with serious comorbidity and body mass index (BMI) of 37.0 to 37.9 in adult ([facility]) ROLANDO (obstructive sleep apnea) Obstructive sleep apnea (adult) (pediatric) Type 2 diabetes mellitus without complication, without long-term current use of insulin ([facility]) Gastroenteritis Other and unspecified noninfectious gastroenteritis and colitis Iron deficiency anemia, unspecified iron deficiency anemia type Weight loss, unintentional- Primary Loss of weight Chronic respiratory failure with hypoxia ([facility]) Morbid (severe) obesity due to excess calories ([facility]) Essential (primary) hypertension Unspecified essential hypertension Class 2 severe obesity due to excess calories with serious comorbidity and body mass index (BMI) of 37.0 to 37.9 in adult ([facility]) Rash Rash and other nonspecific skin eruption Tobacco dependence syndrome Tobacco use disorder Anxiety and depression Mixed hyperlipidemia Mixed hyperlipidemia Iron deficiency anemia, unspecified iron deficiency anemia type Restless leg syndrome Restless legs syndrome (RLS) Primary hypertension Unspecified essential hypertension Gastroesophageal reflux disease without esophagitis Esophageal reflux Type 2 diabetes mellitus without complication, without long-term current use of insulin ([facility]) Edema of both lower extremities Nausea and vomiting, unspecified vomiting type Diarrhea, unspecified type Irritable bowel syndrome with diarrhea- Primary Irritable bowel syndrome Centrilobular emphysema ([facility]) Chronic respiratory failure with hypoxia (HCC) Essential (primary) hypertension Unspecified essential hypertension Gastroesophageal reflux disease without esophagitis Esophageal reflux Class 2 severe obesity due to excess calories with serious comorbidity and body mass index (BMI) of 37.0 to 37.9 in adult ([facility]) Occult blood positive stool Nonspecific abnormal finding in stool contents Tobacco dependence syndrome Tobacco use disorder Anxiety and depression Encounter for wellness examination in adult- Primary Essential (primary) hypertension Unspecified essential hypertension Gastroesophageal reflux disease without esophagitis Esophageal reflux Type 2 diabetes mellitus without complication, without long-term current use of insulin ([facility]) Iron deficiency anemia, unspecified iron deficiency anemia type Anxiety and depression Mixed hyperlipidemia Mixed hyperlipidemia Edema of both lower extremities Restless leg syndrome Restless legs syndrome (RLS) Primary hypertension Unspecified essential hypertension Other insomnia COPD exacerbation (HCC) Obstructive chronic bronchitis with exacerbation Vomiting and diarrhea- Primary Restless leg syndrome Restless legs syndrome (RLS) ROLANDO (obstructive sleep apnea) Obstructive sleep apnea (adult) (pediatric) Essential (primary) hypertension Unspecified essential hypertension Gastroesophageal reflux disease without esophagitis Esophageal reflux Edema of both lower extremities Type 2 diabetes mellitus without complication, without long-term current use of insulin ([facility]) Class 2 severe obesity due to excess calories with serious comorbidity and body mass index (BMI) of 37.0 to 37.9 in adult ([facility]) Mixed hyperlipidemia Mixed hyperlipidemia Anxiety and depression Primary hypertension Unspecified essential hypertension documented in this encounter [facility] HealthcareEvaluation noteNo assessment information availableOhiohealth [facility] Work Phone: Evaluation note* Diagnosis Anxiety and depression- Primary Other insomnia Class 2 severe obesity due to excess calories with serious comorbidity and body mass index (BMI) of 37.0 to 37.9 in adult ([facility]) Type 2 diabetes mellitus without complication, without long-term current use of insulin ([facility]) ROLANDO (obstructive sleep apnea) Obstructive sleep apnea (adult) (pediatric) Other insomnia- Primary ROLANDO (obstructive sleep apnea) Obstructive sleep apnea (adult) (pediatric) COPD mixed type (HCC) Tobacco dependence syndrome Tobacco use disorder BMI 37.0-37.9, adult Anxiety and depression Restless leg syndrome Restless legs syndrome (RLS) Other insomnia- Primary Anxiety and depression Restless leg syndrome Restless legs syndrome (RLS) Acute non-recurrent maxillary sinusitis Right upper quadrant abdominal pain Other fatigue- Primary Morbid (severe) obesity due to excess calories ([facility]) Essential (primary) hypertension Unspecified essential hypertension Body mass index (BMI) 37.0-37.9, adult Chronic respiratory failure with hypoxia ([facility]) Type 2 diabetes mellitus with other specified complication (HCC) Atherosclerosis of aorta Mixed hyperlipidemia Mixed hyperlipidemia Anxiety and depression Restless leg syndrome Restless legs syndrome (RLS) Primary hypertension Unspecified essential hypertension Type 2 diabetes mellitus without complication, without long-term current use of insulin ([facility]) Right upper quadrant abdominal pain COPD mixed type ([facility]) Gastroesophageal reflux disease without esophagitis Esophageal reflux Anxiety and depression- Primary Mixed hyperlipidemia Mixed hyperlipidemia Restless leg syndrome Restless legs syndrome (RLS) Primary hypertension Unspecified essential hypertension Type 2 diabetes mellitus without complication, without long-term current use of insulin ([facility]) Other insomnia Rash- Primary Rash and other nonspecific skin eruption Essential (primary) hypertension Unspecified essential hypertension Edema of both lower extremities Class 2 severe obesity due to excess calories with serious comorbidity and body mass index (BMI) of 37.0 to 37.9 in adult ([facility] [facility]) ROLANDO (obstructive sleep apnea) Obstructive sleep apnea (adult) (pediatric) Type 2 diabetes mellitus without complication, without long-term current use of insulin ([facility]) Gastroenteritis Other and unspecified noninfectious gastroenteritis and colitis Iron deficiency anemia, unspecified iron deficiency anemia type Weight loss, unintentional- Primary Loss of weight Chronic respiratory failure with hypoxia ([facility]) Morbid (severe) obesity due to excess calories ([facility]) Essential (primary) hypertension Unspecified essential hypertension Class 2 severe obesity due to excess calories with serious comorbidity and body mass index (BMI) of 37.0 to 37.9 in adult ([facility]) Rash Rash and other nonspecific skin eruption Tobacco dependence syndrome Tobacco use disorder Anxiety and depression Mixed hyperlipidemia Mixed hyperlipidemia Iron deficiency anemia, unspecified iron deficiency anemia type Restless leg syndrome Restless legs syndrome (RLS) Primary hypertension Unspecified essential hypertension Gastroesophageal reflux disease without esophagitis Esophageal reflux Type 2 diabetes mellitus without complication, without long-term current use of insulin ([facility]) Edema of both lower extremities Nausea and vomiting, unspecified vomiting type Diarrhea, unspecified type Irritable bowel syndrome with diarrhea- Primary Irritable bowel syndrome Centrilobular emphysema ([facility]) Chronic respiratory failure with hypoxia ([facility]) Essential (primary) hypertension Unspecified essential hypertension Gastroesophageal reflux disease without esophagitis Esophageal reflux Class 2 severe obesity due to excess calories with serious comorbidity and body mass index (BMI) of 37.0 to 37.9 in adult ([facility] [facility]) Occult blood positive stool Nonspecific abnormal finding in stool contents Tobacco dependence syndrome Tobacco use disorder Anxiety and depression Encounter for wellness examination in adult- Primary Essential (primary) hypertension Unspecified essential hypertension Gastroesophageal reflux disease without esophagitis Esophageal reflux Type 2 diabetes mellitus without complication, without long-term current use of insulin (HCC) Iron deficiency anemia, unspecified iron deficiency anemia type Anxiety and depression Mixed hyperlipidemia Mixed hyperlipidemia Edema of both lower extremities Restless leg syndrome Restless legs syndrome (RLS) Primary hypertension Unspecified essential hypertension Other insomnia COPD exacerbation (HCC) Obstructive chronic bronchitis with exacerbation Vomiting and diarrhea- Primary Restless leg syndrome Restless legs syndrome (RLS) ROLANDO (obstructive sleep apnea) Obstructive sleep apnea (adult) (pediatric) Essential (primary) hypertension Unspecified essential hypertension Gastroesophageal reflux disease without esophagitis Esophageal reflux Edema of both lower extremities Type 2 diabetes mellitus without complication, without long-term current use of insulin ([facility]) Class 2 severe obesity due to excess calories with serious comorbidity and body mass index (BMI) of 37.0 to 37.9 in adult ([facility]) Mixed hyperlipidemia Mixed hyperlipidemia Anxiety and depression Primary hypertension Unspecified essential hypertension Hypomagnesemia- Primary Disorders of magnesium metabolism LAINA (acute kidney injury) documented in this encounter [facility]* Diagnosis Anxiety and depression- Primary Other insomnia Class 2 severe obesity due to excess calories with serious comorbidity and body mass index (BMI) of 37.0 to 37.9 in adult ([facility]) Type 2 diabetes mellitus without complication, without long-term current use of insulin ([facility]) ROLANDO (obstructive sleep apnea) Obstructive sleep apnea (adult) (pediatric) Other insomnia- Primary ROLANDO (obstructive sleep apnea) Obstructive sleep apnea (adult) (pediatric) COPD mixed type ([facility]) Tobacco dependence syndrome Tobacco use disorder BMI 37.0-37.9, adult Anxiety and depression Restless leg syndrome Restless legs syndrome (RLS) Other insomnia- Primary Anxiety and depression Restless leg syndrome Restless legs syndrome (RLS) Acute non-recurrent maxillary sinusitis Right upper quadrant abdominal pain Other fatigue- Primary Morbid (severe) obesity due to excess calories ([facility]) Essential (primary) hypertension Unspecified essential hypertension Body mass index (BMI) 37.0-37.9, adult Chronic respiratory failure with hypoxia ([facility]) Type 2 diabetes mellitus with other specified complication ([facility]) Atherosclerosis of aorta Mixed hyperlipidemia Mixed hyperlipidemia Anxiety and depression Restless leg syndrome Restless legs syndrome (RLS) Primary hypertension Unspecified essential hypertension Type 2 diabetes mellitus without complication, without long-term current use of insulin ([facility]) Right upper quadrant abdominal pain COPD mixed type (HCC) Gastroesophageal reflux disease without esophagitis Esophageal reflux Anxiety and depression- Primary Mixed hyperlipidemia Mixed hyperlipidemia Restless leg syndrome Restless legs syndrome (RLS) Primary hypertension Unspecified essential hypertension Type 2 diabetes mellitus without complication, without long-term current use of insulin ([facility]) Other insomnia Rash- Primary Rash and other nonspecific skin eruption Essential (primary) hypertension Unspecified essential hypertension Edema of both lower extremities Class 2 severe obesity due to excess calories with serious comorbidity and body mass index (BMI) of 37.0 to 37.9 in adult ([facility]) ROLANDO (obstructive sleep apnea) Obstructive sleep apnea (adult) (pediatric) Type 2 diabetes mellitus without complication, without long-term current use of insulin ([facility]) Gastroenteritis Other and unspecified noninfectious gastroenteritis and colitis Iron deficiency anemia, unspecified iron deficiency anemia type Weight loss, unintentional- Primary Loss of weight Chronic respiratory failure with hypoxia ([facility]) Morbid (severe) obesity due to excess calories ([facility]) Essential (primary) hypertension Unspecified essential hypertension Class 2 severe obesity due to excess calories with serious comorbidity and body mass index (BMI) of 37.0 to 37.9 in adult ([facility]) Rash Rash and other nonspecific skin eruption Tobacco dependence syndrome Tobacco use disorder Anxiety and depression Mixed hyperlipidemia Mixed hyperlipidemia Iron deficiency anemia, unspecified iron deficiency anemia type Restless leg syndrome Restless legs syndrome (RLS) Primary hypertension Unspecified essential hypertension Gastroesophageal reflux disease without esophagitis Esophageal reflux Type 2 diabetes mellitus without complication, without long-term current use of insulin ([facility]) Edema of both lower extremities Nausea and vomiting, unspecified vomiting type Diarrhea, unspecified type Irritable bowel syndrome with diarrhea- Primary Irritable bowel syndrome Centrilobular emphysema ([facility]) Chronic respiratory failure with hypoxia ([facility]) Essential (primary) hypertension Unspecified essential hypertension Gastroesophageal reflux disease without esophagitis Esophageal reflux Class 2 severe obesity due to excess calories with serious comorbidity and body mass index (BMI) of 37.0 to 37.9 in adult ([facility]) Occult blood positive stool Nonspecific abnormal finding in stool contents Tobacco dependence syndrome Tobacco use disorder Anxiety and depression Encounter for wellness examination in adult- Primary Essential (primary) hypertension Unspecified essential hypertension Gastroesophageal reflux disease without esophagitis Esophageal reflux Type 2 diabetes mellitus without complication, without long-term current use of insulin ([facility]) Iron deficiency anemia, unspecified iron deficiency anemia type Anxiety and depression Mixed hyperlipidemia Mixed hyperlipidemia Edema of both lower extremities Restless leg syndrome Restless legs syndrome (RLS) Primary hypertension Unspecified essential hypertension Other insomnia COPD exacerbation (HCC) Obstructive chronic bronchitis with exacerbation Vomiting and diarrhea- Primary Restless leg syndrome Restless legs syndrome (RLS) ROLANDO (obstructive sleep apnea) Obstructive sleep apnea (adult) (pediatric) Essential (primary) hypertension Unspecified essential hypertension Gastroesophageal reflux disease without esophagitis Esophageal reflux Edema of both lower extremities Type 2 diabetes mellitus without complication, without long-term current use of insulin (HCC) Class 2 severe obesity due to excess calories with serious comorbidity and body mass index (BMI) of 37.0 to 37.9 in adult ([facility]) Mixed hyperlipidemia Mixed hyperlipidemia Anxiety and depression Primary hypertension Unspecified essential hypertension Hypomagnesemia- Primary Disorders of magnesium metabolism LAINA (acute kidney injury) Hypomagnesemia Disorders of magnesium metabolism documented in this encounter [facility] HealthcareHospital course Narrative No data available for this section [facility] Discharge instructions No data available for this section [facility] No data available for this section [facility] HospitalReason for referral (narrative)No reason for referral information [facility]Ohio[facility]tr Work Phone: Reason for visit Narrative* Consultation (Routine) - Closed Specialty Diagnoses / Procedures Referred By Contac t Referred To Contact Dermatology Diagnoses Rash Procedures [place] OFFICE/OUTPATIENT NEW HIGH MDM 60 MINUTES Brea Jj NP [address] [place] [address] Phone: tel: fax: Ladonna Bang, [employer] [address] [place] [address] Phone: tel: fax: Referral ID Status Reason Start Date Expiration Date V isits Requested Visits Authorized [id number] Closed Specialty Services Required 12/03/2024 06/01/2025 1 1 [facility] Healthcare Summary Purpose Family History Relationship Condition Age at Onset Recorded Date/T lester Not Specified Chronic obstructive pulmonary disease Un known father Unknown mother Unknown Advance Directives Advance Directive Response Recorded Date/ Time Advance Directives No March 18 4:11pm Chief Complaint and Reason for Visit Chief Complaint Admit Date Unknown May 28, 2025 10:0 2am laina May 28, 2025 11:1 8pm Reason for Visit Admit Date LAINA (acute kidney injury) May 28 11:18pm Diarrhea May 28, 2025 11:1 8pm Nausea and vomiting May 28, 2025 11:1 8pm Additional Source Comments INFORMATION SOURCE (unrecogn ized section and content) DATE CREATED AUTHOR 06/22/2021 [facility] DATE CREATED AUTHOR AUTHOR'S ORGANIZ ATION 02/26/2023 [facility] DATE CREATED AUTHOR AUTHOR'S ORGANIZ ATION 07/17/2024 Grady Julito [facility] DATE CREATED AUTHOR AUTHOR'S ORGANIZ ATION 07/24/2024 Grady [place] [facility] ical Center DATE CREATED AUTHOR AUTHOR'S ORGANIZ ATION 01/15/2025 Grady [place] [facility] DATE CREATED AUTHOR AUTHOR'S ORGANIZ ATION 04/01/2025 [facility] DATE CREATED AUTHOR AUTHOR'S ORGANIZ ATION 05/29/2025 [facility] dical [facility] DATE CREATED AUTHOR AUTHOR'S ORGANIZ ATION 06/03/2025 [facility] [address] [facility] Patient Care team informatio n (unrecognized section and content) Tire Classifier Relationship Specialty Start Date End Date Jose M Light MD [address] [place] [address] PCP - General Family Medicine 10/18/23 Brea Jj NP [address] [place] [address] Nurse Practitioner Family Medicine 10/18/23 Tire Classifier Relationship Specialty Start Date End Date Jose M Light MD [address] [place] [address] PCP - General Family Medicine 10/18/23 Brea Jj NP [address] [place] [address] Nurse Practitioner Family Medicine 10/18/23 Tire Classifier Relationship Specialty Start Date End Date Jose M Light MD [address] [place] [address] PCP - General Family [facility] 10/18/23 Brea Jj NP [address] [place] [address] Nurse Practitioner Family Medicine 10/18/23 Tire Classifier Relationship Specialty Start Date End Date Jose M Light MD [address] [place] [address] PCP - General [facility] 10/18/23 Brea Jj NP [address] [place] [address] [facility] 07/31/24 Brea Jj NP [address] [place] [address] Nurse Practitioner Family [facility] 10/18/23 Tire Classifier Relationship Specialty Start Date End Date Jose M Light MD [address] [place] [address] PCP - General [facility] 10/18/23 Brea Jj NP [address] [place] [address] PCP [facility] 07/31/24 Brea Jj NP [address] [place] [address] Nurse Practitioner Family Medicine 10/18/23 Tire Classifier Relationship Specialty Start Date End Date Jose M Light MD [address] [place] [address] PCP - General Family [facility] 10/18/23 Brea Jj NP [address] [place] [address] [facility] 07/31/24 Brea Jj NP [address] [place] [address] Nurse Practitioner Family [facility] 10/18/23 Tire Classifier Relationship Specialty Start Date End Date Jose M Light MD [address] [place] [address] PCP - General Family Medicine 10/18/23 Brea Jj NP [address] [place] [address] Nurse Practitioner Family Medicine 10/18/23 Tire Classifier Relationship Specialty Start Date End Date Jose M Light MD [address] [place] [address] PCP - General [facility] 10/18/23 Brea Jj NP [address] [place] [address] Nurse Practitioner Family [facility] 10/18/23 Tire Classifier Relationship Specialty Start Date End Date Jose M Light MD [address] [place] [address] PCP - General [facility] 10/18/23 Brea Jj NP [address] [place] [address] Nurse Practitioner Family [facility] 10/18/23 Tire Classifier Relationship Specialty Start Date End Date Jose M Light MD [address] [place] [address] PCP - [facility] 10/18/23 Brea Jj NP [address] [place] [address] [facility] 07/31/24 Brea Jj NP [address] [place] [address] [facility] 10/18/23 Tire Classifier Relationship Specialty Start Date End Date Jose M Light MD [address] [place] [address] PCP - [facility] 10/18/23 Brea Jj NP [address] [place] [address] [facility] 07/31/24 Brea Jj NP [address] [place] [address] Nurse Practitioner Family [facility] 10/18/23 Tire Classifier Relationship Specialty Start Date End Date Jose M Light MD [address] [place] [address] PCP - [facility] 10/18/23 Brea Jj NP [address] [place] [address] [facility] 07/31/24 Brea Jj NP [address] [place] [address] [facility] 10/18/23 Tire Classifier Relationship Specialty Start Date End Date Jose M Light MD [address] [place] [address] PCP - [facility] 10/18/23 Brea Jj NP [address] [place] [address] [facility] 07/31/24 Brea Jj NP [address] [place] [address] Nurse Practitioner Family [facility] 10/18/23 Tire Classifier Relationship Specialty Start Date End Date Jose M Light MD [address] [place] [address] PCP - General [facility] 10/18/23 Brea Jj NP [address] [place] [address] PCP - [facility] 07/31/24 Brea Jj NP [address] [place] [address] [facility] 10/18/23 Tire Classifier Relationship Specialty Start Date End Date Jose M Light MD [address] [place] [address] PCP - [facility] 10/18/23 Brea Jj NP [address] [place] [address] [facility] 07/31/24 Brea Jj NP [address] [place] [address] [facility] 10/18/23 Tire Classifier Relationship Specialty Start Date End Date Jose M Light MD [address] [place] [address] PCP - [facility] 10/18/23 Brea Jj NP [address] [place] [address] [facility] 07/31/24 Brea Jj NP [address] [place] [address] Nurse Practitioner Family Medicine 10/18/23 Tire Classifier Relationship Specialty Start Date End Date Jose M Light MD [address] [place] [address] PCP - General [facility] 10/18/23 Brea Jj NP [address] [place] [address] [facility] 07/31/24 Brea Jj NP [address] [place] [address] [facility] 10/18/23 Tire Classifier Relationship Specialty Start Date End Date Jose M Light MD [address] [place] [address] PCP - General [facility] 10/18/23 Brea Jj NP [address] [place] [address] [facility] 07/31/24 Brea Jj NP [address] [place] [address] Nurse Practitioner Family Medicine 10/18/23 Tire Classifier Relationship Specialty Start Date End Date Jose M Light MD [address] [place] [address] PCP - [facility] 10/18/23 Brea Jj NP [address] [place] [address] [facility] 07/31/24 Brea Jj NP [address] [place] [address] [facility] 10/18/23 Tire Classifier Relationship Specialty Start Date End Date Jose M Light MD [address] [place] [address] PCP - [facility] 10/18/23 Brea Jj NP [address] [place] [address] [facility] 07/31/24 Brea Jj NP [address] [place] [address] [facility] 10/18/23 Tire Classifier Relationship Specialty Start Date End Date Jose M Light MD [address] [place] [address] PCP - [facility] 10/18/23 Brea Jj NP [address] [place] [address] [facility] 07/31/24 Brea Jj NP [address] [place] [address] Nurse Practitioner Family Medicine 10/18/23 Tire Classifier Relationship Specialty Start Date End Date Jose M Light MD [address] [place] [address] PCP - General [facility] 10/18/23 Brea Jj NP [address] [place] [address] PCP - [facility] 07/31/24 Brea Jj NP [address] [place] [address] Nurse Practitioner Family [facility] 10/18/23 Tire Classifier Relationship Specialty Start Date End Date Jose M Light MD [address] [place] [address] PCP - General [facility] 10/18/23 Brea jJ NP [address] [place] [address] PCP - [facility] 07/31/24 Brea Jj NP [address] [place] [address] Nurse Practitioner Family [facility] 10/18/23 Tire Classifier Relationship Specialty Start Date End Date Jose M Light MD [address] [place] [address] PCP - General [facility] 10/18/23 Brea Jj NP [address] [place] [address] PCP - [facility] 07/31/24 Brea jJ NP [address] [place] [address] [facility] 10/18/23 Tire Classifier Relationship Specialty Start Date End Date Jose M Light MD [address] [place] [address] PCP - [facility] 10/18/23 Brea Jj NP [address] [place] [address] [facility] 07/31/24 Brea Jj NP [address] [place] [address] [facility] 10/18/23 Tire Classifier Relationship Specialty Start Date End Date Jose M Light MD [address] [place] [address] PCP - [facility] 10/18/23 Brea Jj NP [address] [place] [address] PCP [facility] 07/31/24 Brea Jj NP [address] [place] [address] Nurse Practitioner Family [facility] 10/18/23 Tire Classifier Relationship Specialty Start Date End Date Jose M Light MD [address] [place] [address] PCP - General [facility] 10/18/23 Brea Jj NP [address] [place] [address] [facility] 07/31/24 Brea Jj NP [address] [place] [address] Nurse Practitioner Family [facility] 10/18/23 Tire Classifier Relationship Specialty Start Date End Date Jose M Light MD [address] [place] [address] PCP - General [facility] 10/18/23 Brea Jj NP [address] [place] [address] [facility] 07/31/24 Brea Jj NP [address] [place] [address] Nurse Practitioner Family [facility] 10/18/23 Tire Classifier Relationship Specialty Start Date End Date Jose M Light MD [address] [place] [address] PCP - General [facility] 10/18/23 Bera Jj NP [address] [place] [address] PCP - [facility] 07/31/24 Brea Jj NP [address] [place] [address] [facility] 10/18/23 Tire Classifier Relationship Specialty Start Date End Date Jose M Light MD [address] [place] [address] PCP - [facility] 10/18/23 Brea Jj NP [address] [place] [address] [facility] 07/31/24 Brea Jj NP [address] [place] [address] Nurse Practitioner Family [facility] 10/18/23 Tire Classifier Relationship Specialty Start Date End Date Jose M Light MD [address] [place] [address] PCP - [facility] 10/18/23 Brea Jj NP [address] [place] [address] PCP [facility] 07/31/24 Brea Jj NP [address] [place] [address] Nurse Practitioner Family Medicine 10/18/23 Tire Classifier Relationship Specialty Start Date End Date Jose M Light MD [address] [place] [address] PCP - General [facility] 10/18/23 Brea Jj NP [address] [place] [address] PCP - [facility] 07/31/24 Brea Jj NP [address] [place] [address] [facility] 10/18/23 Team Status: Active Member Role Status Dates Brea Jj Primary Care Provider Active Team Status: Inactive Member Role Status Dates Brea Jj Attending Provider Active Start: May 28, 2025 End: May 28, 2025 Team Status: Active Member Role Status Dates Marshall Mckeon MD Admit Provider Active Start: Ирина andres 2024 Marshall Mckeon MD Attending Provider Active Start : May 28, 2025 Brea Jj Primary Care Provider Active Sta rt: May 28, 2025 Team Status: Inactive Member Role Status Dates Marshall Mckeon MD Admit Provider Active Start: Ирина andres 2024 End: May 29, 2025 Marshall Mckeon MD Attending Provider Active Start : May 28, 2025 End: May 29, 2025 Brea Jj Primary Care Provider Active Sta rt: May 28, 2025 End: May 29, 2025 Tire Classifier Relationship Specialty Start Date End Date Jose M Light MD [address] [place] [address] PCP - General Family [facility] 10/18/23 Brea Jj NP [address] [place] [address] PCP - [facility] 07/31/24 Brea Jj NP [address] [place] [address] Nurse Practitioner Family [facility] 10/18/23 Tire Classifier Relationship Specialty Start Date End Date Jose M Light MD [address] [place] [address] PCP - [facility] 10/18/23 Brea Jj NP [address] [place] [address] [facility] 07/31/24 Brea Jj NP [address] [place] [address] Nurse Practitioner Family [facility] 10/18/23 Tire Classifier Relationship Specialty Start Date End Date Jose M Light MD [address] [place] [address] PCP - General [facility] 10/18/23 Brea Jj NP [address] [place] [address] [facility] 07/31/24 Brea Jj NP [address] [place] [address] [facility] 10/18/23 Tire Classifier Relationship Specialty Start Date End Date Jose M Light MD [address] [place] [address] PCP - [facility] 10/18/23 Brea Jj NP [address] [place] [address] [facility] 07/31/24 Brea Jj NP [address] [place] [address] [facility] 10/18/23 Tire Classifier Relationship Specialty Start Date End Date Jose M Light MD [address] [place] [address] PCP - [facility] 10/18/23 Brea Jj NP [address] [place] [address] [facility] 07/31/24 Brea Jj NP [address] [place] [address] Nurse Practitioner [facility] 10/18/23 Reason for Visit (unrecogniz ed section and content) Reason Comments Med Refill Reason Onset Date Comments Med Refill 09/11/2024 Reason Comments Rash Reason Comments Rash Reason Comments Follow-up Reason Comments Diabetes FOR RECORDS PERTAINING TO PATIENTS WHO ARE [...] BE BASED ON THE PRIMARY CLINICAL RECORDS. [facility] [employer] [facility]. provides no warranty or guarantee of the accuracy or completeness of information in this document.
--- NOTE | 2025-06-24 10:12 | CT_ITS ---
The [address] [address] Patient Name: ALIYA CONDNO MRN: [id number] date: 1965 Sex: F Assigned Patient Location: CT Current Patient Location: CT Accession/Order Number: [id number] Exam Date: 06/24/2025 10:08 Report Date: 06/24/2025 11:52 At the request of: CORRINA GAINES DO Procedure: CT lung screening low-dose LOW-DOSE SCREENING CHEST CT WITHOUT CONTRAST COMPARISON: 05/29/2024 CLINICAL DATA: Current smoker for over 40 years Spiral axial unenhanced low-dose images were obtained through the chest. Images were reviewed using both narrow and wide window settings. This CT exam was performed using one or more following dose reduction techniques: Automated exposure control, adjustment of the mA and/or kV according to patient size, or use of iterative reconstruction technique. The heart is top normal in size. No pericardial effusion is seen. There is coronary artery disease. No aortic aneurysm is identified. Atherosclerotic plaque is seen at the aortic arch and proximal great vessels. There are a few benign mediastinal lymph nodes. Mild degenerative changes are visualized at the spine. There is minor obstructive lung disease. There is new atelectasis within the right lower lobe adjacent to the major fissure. Other minimal scarring or atelectasis is also seen. There is no pleural effusion or pneumothorax. No developing pulmonary nodularity is identified. Limited cuts through the upper abdomen show no contributory findings. CT/CT lung screening low-dose IMPRESSION: MILD DEVELOPING RIGHT LOWER LOBE ATELECTASIS. NO PULMONARY NODULARITY OR OTHER ACUTE FINDINGS. Lung RADS category 1 - negative Twelve-month low-dose CT follow-up suggested Impression dictated by: Krystyna Rasmussen M.D. 06/24/2025 11:52 AM Dictation Location: [place] [address] Electronically authenticated by: [id number] Date: 06/24/2025 11:52
== END 2025-06-24 09:52 | disposition home or self-care (01) ==
PROVIDERS: PCP Nurse Practitioner; Visit Provider Internal Medicine
DX: F17.219 Nicotine dependence, cigarettes, with unspecified nicotine-induced disorders (principal); Z12.2 Encounter for screening for malignant neoplasm of respiratory organs
CPT/HCPCS: 71271

== ENCOUNTER 2025-07-10 17:34 | Emergency (ER) | payer OTHER, SELFPAY ==
[2025-07-10] VITALS (12 sets, daily range): BP systolic 125–139; BP diastolic 62–74; PULSE 82–93; TEMP 37.2–37.4; O2SAT 92–96; BMI 36.9
--- OUTSIDE RECORDS SUMMARY | 2025-07-10 18:25 | XMS_ITS | CCD ---
Author Organization [facility] Care Team Providers Care Cabin Cleaner Name Role Phone TOSHIA SAM Attending Unavailable TOSHIA SAM Admitting Unavailable SELF, REFERRED Referring Unavailable SELF, REFERRED Primary Care Unavailable AICHHOLZ, RUG CLEANER HELPER BREA Primary Care Unavailable SAMSA ., CORRINA Consulting Unavailable SAMSA ., CORRINA Admitting Unavailable SAMSA ., CORRINA Attending Unavailable AICHHOLZ, RUG CLEANER HELPER BREA Attending Unavailable AICHHOLZ, RUG CLEANER HELPER BREA Consulting Unavailable AICHHOLZ, RUG CLEANER HELPER BREA Primary Care Unavailable AICHHOLZ, RUG CLEANER HELPER BREA Admitting Unavailable AICHHOLZ, RUG CLEANER HELPER BREA Primary Care Unavailable DR MIGUEL MEDEROS Consulting Unavailable SAMSA ., CORRINA Admitting Unavailable SAMSA ., CORRINA Attending Unavailable SAMSA ., CORRINA Consulting Unavailable SAMSA ., CORRINA Attending Unavailable SAMSA ., CORRINA Consulting Unavailable SAMSA ., CORRINA Admitting Unavailable AICHHOLZ, RUG CLEANER HELPER BREA Primary Care Unavailable AICHHOLZ, RUG CLEANER HELPER BREA Attending Unavailable LETY, DR LEANA Worrell Consulting Unavailable AICHHOLZ, RUG CLEANER HELPER BREA Primary Care Unavailable AICHHOLZ, RUG CLEANER HELPER BREA Admitting Unavailable AICHHOLZ, RUG CLEANER HELPER BREA Consulting Unavailable PAY ., DR SALAZAR Admitting Unavailable PAY ., DR SALAZAR Attending Unavailable PAY ., DR SALAZAR Consulting Unavailable AICHHOLZ, RUG CLEANER HELPER BREA Primary Care Unavailable MEDARDOCHNY .JUAN Consulting Unavailabl e Rastealla, Justine Consulting Unavailable AICHHOLZ, RUG CLEANER HELPER BREA Primary Care Unavailable PAY ., DR SALAZAR Attending Unavailable PAY ., DR SALAZAR Admitting Unavailable GRECHNY .JUAN Consulting Unavailabl e POLICTERESA, KENDY Consulting Unavailable AICHHOLZ, RUG CLEANER HELPER BREA Attending Unavailable AICHHOLZ, RUG CLEANER HELPER BREA Consulting Unavailable AICHHOLZ, RUG CLEANER HELPER BREA Primary Care Unavailable AICHHOLZ, RUG CLEANER HELPER BREA Admitting Unavailable AICHHOLZ, BREA J Primary Care Physician Yessica SPENCER Unavailable Aichlloyd CREW DISPATCHER, Brea Unavailable Jose M Light MD Primary Care Provider [phone] Ramses Hair Attending Unavailable Moses Fischer Attending Unavailable Mariama Barcenas Attending Unavailable Gigibosjose, Mariama Chen Attending Unavailable GigiboskeMariama Attending Unavailable Teganke, Mariama April Admitting Unavailable Demboske, Mariama Chen Admitting Unavailable Mariama Barcenas Attending Unavailable MD Roby Bob Admitting Unavail able MD Roby Bob Attending Unavail able Aicroxy CREW DISPATCHER, Brea Unavailable Jose M Light MD Primary Care Provider Aicroxy CREW DISPATCHER, Brea Unavailable Mariama Barcenas Admitting Unavailable Mariama Barcenas Attending Unavailable Suzanna Eddy Attending Unavaila MARLENE Anderson Attending Unavailable Brea Jj Attending Provider Mike BOOTHE, Marshall Admit Provider Mike BOOTHE, Marshall Attending Provider Neal Jja Connie Primary Care Provider NEAL JJA Attending Unavailable LADONNA BANG Attending Unavailable AICVickyHOLZ BREA Referring Unavailable AICHHOLZ, BREA Attending Unavailable LADONNA BANG Attending Unavailable AICHHOLZ, BREA Attending Unavailable AICHHOLZ, BREA Attending Unavailable АННА, BREA Attending Unavailable АННА, BREA Attending Unavailable AicNeal ramseya J Admitting Unavailable Aichholz, Brea J Attending Unavailable Marshall Mckeon Admitting Unavailable Marshall Mckeon Attending Unavailable Brea Jj Primary Care Unavailable Aichholz CREW DISPATCHER, Brea Unavailable Aichholz CREW DISPATCHER, Brea Unavailable Allergies Allergy Classification Reported Allergen(s) Allergy Type Date of Onset Reaction(s) Facility (2 sources) No Known Medication Allergies; Translations: [No Known Medication Allergies] Propensity to adverse reactions (disorder) [facility] Repository Medications Current Medications Medication Drug Class(es) Dates Sig (Normalized) Sig (Original) albuterol 0.83 mg/ml inhalation solution (20 sources) beta2-Adrenergic Agonist Start: 07-14-2021 take 2.5 mg by inhalation three times daily Albuterol Sulfate 2.5 mg /3 mL (0.083 %) solution for nebulization Active 2.5 MG INHALATION Three times daily July 14, 2021 12:00am Complies with drug [...] (2 sources) Tricyclic Antidepressant Start: 10-19-2023 End: 02-05-2024 take 1 tablet by mouth at bedtime [...] BID, # 180 tab(s), Refills(s) 3, Pharmacy: [facility] 1155, 175, cm, 06/28/23 10:58:00 [...] mouth at bedtime 30 tablet 5 05/28/2025 Active Start: 06-17-2023 ATORVASTATIN C ALCIUM 40 MG TABLET ATORVASTATIN CALCIUM 40 MG TABLET Start Date: 06/17/23 Status: Ordered Start: 03-31-2020 End: 10-11-2024 take 1 tablet by mouth at bedtime atorvastatin (Lipitor) 40 MG tablet Indications: Mixed hyperlipidemia (CMS/HCC) Take 1 tablet (40 mg) by mouth at bedtime 30 tablet 5 07/24/2024 08/23/2024 Active benzonatate 100 mg oral capsule (19 sources) Non-narcotic Antitussive Start: 02-22-2025 take 1 [...] mg) before bedtime. 60 tablet 5 05/28/2025 Active calcium carbonate 1500 mg oral tablet [...] MOUTH AT BEDTIME 30 tablet 2 05/10/2025 Active Start: 12-05-2023 End: 01-04-2024 take 1 tablet by mouth at bedtime clonazePAM (KlonoPIN) 0.5 MG tablet Indications: Other insomnia , Anxiety and depression (CMS/HCC) , Restless leg syndrome Take 1 tablet (0.5 mg) by mouth at bedtime 30 tablet 1 12/05/2023 01/04/2024 Active codeine phosphate 2 mg/ml / guaiFENesin 20 mg/ml oral solution (19 sources) Opioid Agonist Start: 02-22-2025 guaiFENesin-co deine [...] # 28 cap(s), Refills(s) 0, Pharmacy: [facility] 1155, 175, cm, 09/25/23 18:25:00 EST, Height/Length [...] therapy doxepin hydrochloride 10 mg oral capsule (11 sources) Tricyclic Antidepressant take 1 capsule by [...] by mouth Daily 30 capsule 5 05/28/2025 Active ferrous sulfate 325 mg oral tablet [...] # 30 tab(s), Refills(s) 6, Pharmacy: [facility], 175, cm, 01/16/24 11:22:00 EDT, Height/Length Dosing, 118, kg, 01/16/24 11:22:00 EDT, Weight Dosing Start Date: 01/19/24 Status: Ordered Quantity: 30.0 Unit: tab(s) Repeat number: 7 Start: 01-19-2024 take 1 tablet by tamar th once daily Ferrousal 325 mg oral tablet 325 mg = 1 tab(s), Oral, Daily, # 30 tab(s), Refills(s) 6, Pharmacy: [facility], 175, cm, 01/16/24 11:22:00 EDT, Height/Length [...] or underarms, 30 day supply 80 g 12/10/2024 Active fluticasone propionate 0.05 mg/actuat metered [...] Start: 06-17-2023 fluticasone Na margaret 0.05 mg/inh Cataract 2 spray(s), Nasal, Daily, 16 gram, Refill(s) 0, each nostril, Allergy symptoms Start Date: 06/17/23 Status: Ordered Quantity: 16.0 Unit: g Repeat number: 1 Start: 06-17-2023 fluticasone Na margaret 0.05 mg/inh Cataract 2 spray(s), Nasal, Daily, 16 gram, Refill(s) 0, each nostril Start Date: 06/17/23 Status: Ordered Start: 04-13-2023 End: 10-29-2024 take 2 spray(s) nasal route once daily fluticasone (Flonase) 50 MCG/ACT nasal spray INSTILL 2 SPRAYS IN EACH NOSTRIL ONCE DAILY 04/13/2023 10/29/2024 Discontinued (Therapy completed) Start: 03-31-2020 End: 07-08-2021 Fluticasone Propionate 50 mcg/actuation Nicholls,Suspension Discontinued 2 SPRAY INTRANASAL Daily March 31, [...] by mouth Daily 30 tablet 5 05/28/2025 Active gabapentin 300 mg oral capsule (20 [...] by mouth Daily 30 capsule 5 05/28/2025 Active 12 hr guaiFENesin 600 mg extended release oral tablet (19 sources) Start: 02-22-2025 take 1 tablet by [...] by mouth Daily 30 tablet 5 05/28/2025 Active lamoTRIgine 25 mg oral tablet (20 sources) Mood Stabilizer, Anti-epileptic Agent Start: 10-15-2024 End: 06-27-2025 take 2 tablets by mouth at bedtime lamoTRIgine (LaMICtal) 25 MG tablet Indications: Anxiety and depression Take 2 tablets (50 mg) by mouth at bedtime 60 tablet 5 05/28/2025 Active Start: 04-10-2024 End: 08-23-2024 take 2 tablets by mouth at bedtime lamoTRIgine (LaMICtal) 25 MG tablet Indications: Anxiety and depression (CMS/HCC) Take 2 tablets (50 mg) by mouth at bedtime 60 tablet 5 07/24/2024 08/23/2024 Active Start: 10-12-2023 take 2 tablets by mo [facility] at bedtime lamoTRIgine (LaMICtal) 25 MG tablet [...] therapy magnesium oxide 400 mg oral tablet (6 sources) Start: 05-30-2025 End: 07-05-2025 take 1 [...] Discontinued Start: 05-09-2024 take 1 tablet by [facility] once daily Multiple Vitamin (Multivitamin) tablet [...] chew, or split. 30 tablet 5 05/28/2025 Active Start: 03-31-2020 End: 07-08-2021 take 1 [...] by mouth Daily 30 tablet 5 05/28/2025 Active potassium chloride 10 meq extended release [...] Active Start: 06-17-2023 take 1 tablet by [facility] twice daily Potassium Chloride (Bnd-Odjv-Ykh 10) 10 mEq oral tablet, extended release 10 mEq = 1 tab(s), Oral, BID, Refills(s) 0, Prophylaxis Start Date: 06/17/23 Status: Ordered Repeat number: 1 Start: 06-17-2023 Potassium Chlo ride (Ypl-Ciri-Hiz 10) 10 mEq oral tablet, extended release Refills(s) 0 Start Date: 06/17/23 Status: Ordered pramipexole dihydrochloride 0.5 mg oral tablet (20 sources) Nonergot Dopamine Agonist Start: 06-17-2023 End: 06-27-2025 take 1 tablet by mouth at bedtime pramipexole (Mirapex) 0.5 MG tablet Indications: Restless leg syndrome Take 1 tablet (0.5 mg) by mouth at bedtime 30 tablet 5 05/28/2025 Active Start: 03-31-2020 take 2 tablets by mo [facility] once daily at bedtime Pramipexole 0.25 mg Tablet Active 0.5 MG PO Daily at bedtime March 31, 2020 12:00am Complies with drug therapy predniSONE 20 mg oral tablet (20 sources) Start: 02-19-2025 predniSONE (De ltasone) 20 [...] q8hr, # 12 tab(s), Refills(s) 0, Pharmacy: [facility], 175, cm, 09/25/23 18:25:00 EST, Height/Length Dosing, 121, kg, 09/25/23 18:25:00 EST, Weight Dosing Start Date: 09/25/23 Status: Ordered Quantity: 12.0 Unit: tab(s) Repeat number: 1 Start: 09-25-2023 take 1 tablet by tamar th every eight hours Zofran ODT 4 mg Tab-Dis 4 mg = 1 tab(s), Oral, q8hr, # 12 tab(s), Refills(s) 0, Pharmacy: [facility], 175, cm, 09/25/23 18:25:00 EST, Height/Length [...] QPM metoprolol tartrate 50 mg oral tablet (13 sources) beta-Adrenergic Aleks Start: 03-31-2020 End: 07-08-2021 [...] te Episodic/Chronic Acute and unspecified renal failure (9 sources) Acute renal failure syndrome; Translations: [Acute [...] 4 12-05-2023 Chronic Other aftercare (1 source) 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; Translations: [[facility] CURRENT USE OF ASPIRIN] Onset: 3 Episodic Other aftercare (1 source) Other residential (current) drug therapy; Translations: [OTH [facility] CURRENT DRUG THERAPY] Onset: 3 Episodic Other aftercare (1 source) Long-term current use of drug therapy; Translations: [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 Ordering Physician: Corrina Gainse D.O. Date of Service: 06/24/25 Procedure(s): CT lung screening low-dose Accession Number(s): [id number] cc: Brea Jj NP [address] [address] Patient Name: ALIYA MOORE MRN: [facility]:[id number] date: 1965 Sex: F Assigned Patient Location: CT Current Patient Location: CT Accession/Order Number: [id number] Exam Date: 06/24/2025 10:08 Report Date: 06/24/2025 11:52 At the request of: CORRINA GAINES DO Procedure: CT lung screening low-dose LOW-DOSE SCREENING CHEST CT WITHOUT CONTRAST COMPARISON: 05/29/2024 CLINICAL DATA: Current smoker for over 40 years Spiral axial unenhanced low-dose images were obtained through the chest. Images were reviewed using both narrow and wide window settings. This CT exam was performed using one or more following dose reduction techniques: Automated exposure control, adjustment of the mA and/or kV according to patient size, or use of iterative reconstruction technique. The heart is top normal in size. No pericardial effusion is seen. There is coronary artery disease. No aortic aneurysm is identified. Atherosclerotic plaque is seen at the aortic arch and proximal great vessels. There are a few benign mediastinal lymph nodes. Mild degenerative changes are visualized at the spine. There is minor obstructive lung disease. There is new atelectasis within the right lower lobe adjacent to the major fissure. Other minimal scarring or atelectasis is also seen. There is no pleural effusion or pneumothorax. No developing pulmonary nodularity is identified. Limited cuts through the upper abdomen show no contributory findings. CT/CT lung screening low-dose IMPRESSION: MILD DEVELOPING RIGHT LOWER LOBE ATELECTASIS. NO PULMONARY NODULARITY OR OTHER ACUTE FINDINGS. Lung RADS category 1 - negative Twelve-month low-dose CT follow-up suggested Impression dictated by: Krystyna Rasmussen M.D. 06/24/2025 11:52 AM Dictation Location: [place] [address] Electronically authenticated by: [id number] Y Date: 06/24/2025 11:52 Dictated By: Krystyna Rasmussen M.D. Signed By: 06/24/25 1155 DD/ 1152 TD/TT: Flat Screen Worker: [facility] Radiology, Radiologist, - 06/24/[address] [address] [address] Scan Report Signed Patient: ALIYA MOORE MR#: [id number] : 1965 Acct:[id number] Age/Sex: 59 / F ADM Date: 06/24/25 Loc: CT Attending Dr: Corrina Gaines D.O. Ordering Physician: Corrina Gaines D.O. Date of Service: 06/24/25 Procedure(s): CT lung screening low-dose Accession Number(s): [id number] cc: Brea Jj NP The [address] [id number] Patient Name: ALIYA MOORE MRN: [id number] date: 1965 Sex: F Assigned Patient Location: CT Current Patient Location: CT Accession/Order Number: [id number] Exam Date: 06/24/2025 10:08 Report Date: 06/24/2025 11:52 At the request of: CORRINA GAINES DO Procedure: CT lung screening low-dose LOW-DOSE SCREENING CHEST CT WITHOUT CONTRAST COMPARISON: 05/29/2024 CLINICAL DATA: Current smoker for over 40 years Spiral axial unenhanced low-dose images were obtained through the chest. Images were reviewed using both narrow and wide window settings. This CT exam was performed using one or more following dose reduction techniques: Automated exposure control, adjustment of the mA and/or kV according to patient size, or use of iterative reconstruction technique. The heart is top normal in size. No pericardial effusion is seen. There is coronary artery disease. No aortic aneurysm is identified. Atherosclerotic plaque is seen at the aortic arch and proximal great vessels. There are a few benign mediastinal lymph nodes. Mild degenerative changes are visualized at the spine. There is minor obstructive lung disease. There is new atelectasis within the right lower lobe adjacent to the major fissure. Other minimal scarring or atelectasis is also seen. There is no pleural effusion or pneumothorax. No developing pulmonary nodularity is identified. Limited cuts through the upper abdomen show no contributory findings. CT/CT lung screening low-dose IMPRESSION: MILD DEVELOPING RIGHT LOWER LOBE ATELECTASIS. NO PULMONARY NODULARITY OR OTHER ACUTE FINDINGS. Lung RADS category 1 - negative Twelve-month low-dose CT follow-up suggested Impression dictated by: Krystyna Rasmussen M.D. 06/24/2025 11:52 AM Dictation Location: [place] [address] Electronically authenticated by: [id number] Y Date: 06/24/2025 11:52 Dictated By: Krystyna Rasmussen M.D. Signed By: 06/24/25 1155 DD/ 115 TD/TT: Flat Screen Worker: [facility] Radiology Study observation (narrative) [facility] CT LUNG SCREENING LOW DOSEOr dered By: Radiologist Radiology on 06-24-2025 [facility] Work Phone: ALL BASIC METABOLIC PANELon 06-05-2025 Anion gap [Moles/Vol] 12 mmol/L [facility] Calcium [Mass/Vol] 10.1 mg/dL 8.5 - 10. 1 mg/dL [facility] Chloride [Moles/Vol] 101 mmol/L 98 - 10 7 mmol/L [facility] CO2 [Moles/Vol] 32 mmol/L 21.0 - 32.0 mmol/L [facility] Creatinine [Mass/Vol] 0.87 mg/dL 0.55 - 1.02 mg/dL [facility] GFR/1.73 sq M.predicted CKD-EPI (S/P/Bld) [Vol rate/Area] >60 >=60 mL/min/1.73m 2 [facility] Glucose [Mass/Vol] 127 mg/dL High 74 - 106 mg/dL [facility] Potassium [Moles/Vol] 4 mmol/L 3.5 - 5.1 mmol/L [facility] Sodium [Moles/Vol] 141 mmol/L 136 - 145 mmol/L [facility] EGFR-NON AF KOSOVAN >60 >=60 mL/min/1.73m 2 [facility] Urea nitrogen [Mass/Vol] 16 mg/dL 7.0 - 18.0 mg/dL [facility] Urea nitrogen/Creatinine [Mass ratio] 18.4 mg/mg [facility] ALL MAGNESIUMon 06-05-2025 Magnesium [Mass/Vol] 1.2 mg/dL Low 1.8 - 2 .4 mg/dL [facility] No Panel Informationon 06-05 Interpretation and review of laboratory results Abnormal [facility] ALL CBC WITH AUTO DIFFon BASOPHILS ABSOLUTE AUTO 0 N [facility] Basophils/100 WBC (Bld) 0.1 % Low 0.2 - 2.0 % [facility] Eosinophils/100 WBC (Bld) 0.7 % Low 0.9 - 7.0 % [facility] Erythrocyte distribution width (RBC) [Ratio] 15.5 % High 11.0 - 15.0 % [facility] Hematocrit (Bld) [Volume fraction] 39.9 % 36.0 - 48.0 % [facility] Hemoglobin (Bld) [Mass/Vol] 13.4 g/dL 12.0 - 16.0 g/dL [facility] IMMATURE GRANULOCYTES ABS AUTO 0.02 [facility] Immature granulocytes/100 WBC (Bld) 0.2 % 0.0 - 0.5 % [facility] Interpretation and review of laboratory results Abnormal [facility] LYMPHOCYTES ABSOLUTE AUTO 1.2 [facility] Lymphocytes/100 WBC (Bld) 12.8 % Low 20.5 - 60.0 % [facility] MCH (RBC) [Entitic mass] 30.2 pg 26.7 - 34.0 pg [facility] MCHC (RBC) [Mass/Vol] 33.6 g/dL 29.9 - 35.2 g/dL [facility] MCV (RBC) [Entitic vol] 89.9 fL 81.0 - 99.0 fL [facility] MONOCYTES ABSOLUTE AUTO 1 High N [facility] Monocytes/100 WBC (Bld) 10.4 % 1.7 - 12.0 % [facility] NEUTROPHILS ABSOLUTE AUTO 7.1 High [facility] Neutrophils/100 WBC (Bld) 75.8 % High 43.0 - 75.0 % [facility] Platelet mean volume (Bld) [Entitic vol] 11.8 fL 9.5 - 13.5 fL [facility] EO # 0.1 [facility] PLT 155 [facility] TB RBC 4.44 [facility] WBC 9.4 [facility] Basic Metabolic Panelon 05-02 Creatinine Clr Calc Pharmacy 52.82 Normal [facility] Comment on above: Performed By: #### C BC, BMP, MG #### [facility] [address] GFR/1.73 sq M.predicted MDRD (S/P/Bld) [Vol rate/Area] 37.536 mL/min/{1.73_m2} Normal [facility] Comment on above: Performed By: #### C BC, BMP, MG #### [facility] [address] [place] [address] [place] Basophils [#/volume] in Bloo d by Automated countOrdered By: Debbie Alejandro on 05-29-2025 Basophils (Bld) [#/Vol] 0.0 10*3/uL Normal 0.0-0.2 [facility] Comment on above: Result Comment: PERF ORMED BY: [place] [address] PATHOLOGIST [employer] AUTHORING SPECIALIST DONALD MAJOR M.D. Performed By: #### C BC, BMP, MG #### [address] Basophils/100 leukocytes in Blood by Automated countOrdered By: Debbie Alejandro on 05-29-2025 Basophils/100 WBC (Bld) 0.5 % Normal . [facility] Comment on above: Performed By: #### C BC, BMP, MG #### [facility] [address] Calcium [Mass/volume] in Ser um or PlasmaOrdered By: Debbie Alejandro on 05-29-2025 Calcium [Mass/Vol] 8.7 mg/dL Normal 8.6-10.3 [facility] Comment on above: Performed By: #### C BC, BMP, MG #### [facility] [address] Capillary blood glucose jacquelyn urement by glucometer (mass/volume)Ordered By: Marshall Mckeon on 05-29-2025 Glucose [Mass/Vol] 97 mg/dL Normal [facility] Comment on above: Random Glucose Refer ence Range is dependent on time and content of last meal. Glucose of more than 200 mg/dL in a nonstressed, ambulatory subject supports the diagnosis of Diabetes Mellitus. Result Comment: [facility] Glucose Reference Range is dependent on time and content of last meal. Glucose of more than 200 mg/dL in a nonstressed, ambulatory subject supports the diagnosis of Diabetes Mellitus. PERFORMED BY: [place] [address] PATHOLOGIST [employer] AUTHORING SPECIALIST DONALD MAJOR M.D. Performed By: #### G PEGGY #### Point of Care testing , Carbon dioxide, total [Moles /volume] in Serum or PlasmaOrdered By: Debbie Alejandro on 05-29-2025 CO2 [Moles/Vol] 25.8 mmol/L Normal 21.0-31.0 [facility] Comment on above: Performed By: #### C BC, BMP, MG #### [address] Chloride [Moles/volume] in S melissa or PlasmaOrdered By: Debbie Alejandro on 05-29-2025 Chloride [Moles/Vol] 111 mmol/L High 98-107 [facility] Comment on above: Performed By: #### C BC, BMP, MG #### [address] Complete Blood Count Auto Di ffon 05-29-2025 Mean Corpuscular HGB Conc 33.2 g/dL Normal 32.0-35.0 [facility] Comment on above: Performed By: #### C BC, BMP, MG #### [place] [address] [place] NRBC% 0.1 /100{WBC} Normal 0-0.5 [facility] Comment on above: Performed By: #### C BC, BMP, MG #### [address] White Blood Count 6.0 [CFU]/mL Normal 3.8-11.6 [facility] Comment on above: Performed By: #### C BC, BMP, MG #### [address] Creatinine [Mass/volume] in Serum or PlasmaOrdered By: Debbie Alejandro on 05-29-2025 Creatinine [Mass/Vol] 1.57 mg/dL High 0.60-1.20 [facility] Comment on above: Performed By: #### C BC, BMP, MG #### [address] Eosinophils [#/volume] in Bl ood by Automated countOrdered By: Debbie Alejandro on 05-29-2025 Eosinophils (Bld) [#/Vol] 0.1 10*3/uL Normal 0.0-0.45 [facility] Comment on above: Performed By: #### C BC, BMP, MG #### [facility] [address] Eosinophils/100 leukocytes i n Blood by Automated countOrdered By: Debbie Alejandro on 05-29-2025 Eosinophils/100 WBC (Bld) 2.1 % Normal . [facility] Comment on above: Performed By: #### C BC, BMP, MG #### [address] Erythrocyte distribution wid th [Ratio] by Automated countOrdered By: Debbie Alejandro on 05-29-2025 Erythrocyte distribution width (RBC) [Ratio] 15.5 % High 11.9-15.3 [facility] Comment on above: Performed By: #### C BC, BMP, MG #### [address] Erythrocytes [#/volume] in B lood by Automated countOrdered By: Debbie Alejandro on 05-29-2025 RBC (Bld) [#/Vol] 4.16 10*6/uL Normal 3.60-5.00 [facility] Comment on above: Performed By: #### C BC, BMP, MG #### [address] Glucose [Mass/volume] in Ser um or PlasmaOrdered By: Debbie Alejandro on 05-29-2025 Glucose [Mass/Vol] 105 mg/dL High 70-100 [facility] Comment on above: ADA recommended refe rence rangeRandom Glucose Reference Range is dependent on time and content of last meal. Glucose of more than 200 mg/dL in a nonstressed, ambulatory subject supports the diagnosis of Diabetes Mellitus. Result Comment: [facility] Glucose Reference Range is dependent on time and content of last meal. Glucose of more than 200 mg/dL in a nonstressed, ambulatory subject supports the diagnosis of Diabetes Mellitus. ADA recommended reference range Performed By: #### C BC, BMP, MG #### [address] Hematocrit [Volume Fraction] of Blood by Automated countOrdered By: Debbie Alejandro on 05-29-2025 Hematocrit (Bld) [Volume fraction] 37.2 % Normal 34.0-46.4 [facility] Comment on above: Performed By: #### C BC, BMP, MG #### [address] Hemoglobin [Mass/volume] in BloodOrdered By: Debbie Alejandro on 05-29-2025 Hemoglobin (Bld) [Mass/Vol] 12.4 g/dL Normal 11.8-15.4 [facility] Comment on above: Performed By: #### C BC, BMP, MG #### [address] Leukocytes [#/volume] correc aura for nucleated erythrocytes in Blood by Automated counOrdered By: Debbie Alejandro on 05-29-2025 WBC corrected for nucl RBC Auto (Bld) [#/Vol] 6.0 10*3/uL 3.8-11.6 [facility] Leukocytes [#/volume] in Blo od by Automated countOrdered By: Debbie Alejandro on 05-29-2025 WBC (Bld) [#/Vol] 6.0 10*3/uL Normal 3.8-11.6 [facility] Comment on above: Performed By: #### C BC, BMP, MG #### [address] Lymphocytes [#/volume] in Bl ood by Automated countOrdered By: Debbie Alejandro on 05-29-2025 Lymphocytes (Bld) [#/Vol] 0.9 10*3/uL Low 1.00-4.8 [facility] Comment on above: Performed By: #### C BC, BMP, MG #### [address] Lymphocytes/100 leukocytes i n Blood by Automated countOrdered By: Debbie Alejandro on 05-29-2025 Lymphocytes/100 WBC (Bld) 15.5 % Normal . [facility] Comment on above: Performed By: #### C BC, BMP, MG #### [address] MCH [Entitic mass] by Automa aura countOrdered By: Debbie Alejandro on 05-29-2025 MCH (RBC) [Entitic mass] 29.8 pg Normal 24.7-34.3 [facility] Comment on above: Performed By: #### C BC, BMP, MG #### [address] MCHC Auto (RBC) [Mass/Vol]Or dered By: Debbie Alejandro on 05-29-2025 MCHC (RBC) [Mass/Vol] 33.2 g/dL 32.0-35.0 [facility] MCV [Entitic volume] by Auto mated countOrdered By: Debbie Alejandro on 05-29-2025 MCV (RBC) [Entitic vol] 89.5 fL Normal 80-100 F [facility] Comment on above: Performed By: #### C BC, BMP, MG #### [address] Magnesium [Mass/volume] in S melissa or PlasmaOrdered By: Debbie Alejandro on 05-29-2025 Magnesium [Mass/Vol] 1.4 mg/dL Low 1.9-2.7 [facility] Comment on above: Result Comment: PERF ORMED BY: [place] [address] PATHOLOGIST MULTIM[employer]IA AUTHORING SPECIALIST DONALD MAJOR M.D. Performed By: #### C BC, BMP, MG #### [address] Monocytes [#/volume] in Bloo d by Automated countOrdered By: Debbie Alejandro on 05-29-2025 Monocytes (Bld) [#/Vol] 0.7 10*3/uL Normal 0.0-0.8 [facility] Comment on above: Performed By: #### C BC, BMP, MG #### [facility] [address] [place] [address] [place] Monocytes/100 leukocytes in Blood by Automated countOrdered By: Debbie Alejandro on 05-29-2025 Monocytes/100 WBC (Bld) 11.1 % Normal . F [facility] Comment on above: Performed By: #### C BC, BMP, MG #### [facility] [address] [place] [address] [place] Neutrophils [#/volume] in Bl ood by Automated countOrdered By: Debbie Alejandro on 05-29-2025 Neutrophils (Bld) [#/Vol] 4.2 10*3/uL Normal 1.8-7.7 [facility] Comment on above: Performed By: #### C BC, BMP, MG #### [facility] [address] [place] [address] [place] Neutrophils/100 leukocytes i n Blood by Automated countOrdered By: Debbie Alejandro on 05-29-2025 Neutrophils/100 WBC (Bld) 70.8 % Normal . [facility] Comment on above: Performed By: #### C BC, BMP, MG #### [facility] [address] [place] [address] No Panel InformationOrdered By: Debbie Alejandro on 05-29-2025 Estimated GFR (CKD-EPI) 37.536 mL/Min [facility] Creatinine Clearance (Chem 52.82 [facility] Nucleated erythrocytes [Pres ence] in Blood by Automated countOrdered By: Debbie Alejandro on 05-29-2025 Nucleated RBC Auto Ql (Bld) 0.1 /100{WBC} 0-0.5 [facility] Platelet mean volume [Entiti c volume] in Blood by Automated countOrdered By: Debbie Alejandro on 05-29-2025 Platelet mean volume (Bld) [Entitic vol] 10.5 fL Normal 6.3-10.7 [facility] Comment on above: Performed By: #### C BC, BMP, MG #### [facility] [address] Platelets [#/volume] in Bloo d by Automated countOrdered By: Debbie Alejandro on 05-29-2025 Platelets (Bld) [#/Vol] 118 10*3/uL Low 150-450 [facility] Comment on above: Performed By: #### C BC, BMP, MG #### [address] Potassium [Moles/volume] in Serum or PlasmaOrdered By: Debbie Alejandro on 05-29-2025 Potassium [Moles/Vol] 5.0 mmol/L Normal 3.5-5.1 [facility] Comment on above: Performed By: #### C BC, BMP, MG #### [address] Serum or plasma anion gap de terminationOrdered By: Debbie Alejandro on 05-29-2025 Anion gap [Moles/Vol] 7.2 mmol/L Normal 6.0-15.0 [facility] Comment on above: Performed By: #### C BC, BMP, MG #### [address] Sodium [Moles/volume] in Ser um or PlasmaOrdered By: Debbie Alejandro on 05-29-2025 Sodium [Moles/Vol] 139 mmol/L Normal 136-145 [facility] Comment on above: Performed By: #### C BC, BMP, MG #### [address] Urea nitrogen [Mass/volume] in Serum or PlasmaOrdered By: Debbie Alejandro on 05-29-2025 Urea nitrogen [Mass/Vol] 53 mg/dL High 7-25 [facility] Comment on above: Performed By: #### C BC, BMP, MG #### [address] ALL CBC WITH AUTO DIFFon BASOPHILS ABSOLUTE AUTO 0 N [facility] Basophils/100 WBC (Bld) 0.3 % 0.2 - 2.0 % [facility] Eosinophils/100 WBC (Bld) 1.9 % 0.9 - 7.0 % [facility] Erythrocyte distribution width (RBC) [Ratio] 15.2 % High 11.0 - 15.0 % [facility] Hematocrit (Bld) [Volume fraction] 42.9 % 36.0 - 48.0 % [facility] Hemoglobin (Bld) [Mass/Vol] 14.4 g/dL 12.0 - 16.0 g/dL [facility] IMMATURE GRANULOCYTES ABS AUTO 0.03 [facility] Immature granulocytes/100 WBC (Bld) 0.3 % 0.0 - 0.5 % [facility] Interpretation and review of laboratory results Abnormal [facility] LYMPHOCYTES ABSOLUTE AUTO 1.7 [facility] Lymphocytes/100 WBC (Bld) 15.2 % Low 20.5 - 60.0 % [facility] MCH (RBC) [Entitic mass] 30.4 pg 26.7 - 34.0 pg [facility] MCHC (RBC) [Mass/Vol] 33.6 g/dL 29.9 - 35.2 g/dL [facility] MCV (RBC) [Entitic vol] 90.7 fL 81.0 - 99.0 fL [facility] MONOCYTES ABSOLUTE AUTO 1 High N [facility] Monocytes/100 WBC (Bld) 9.1 % 1.7 - 12.0 % [facility] NEUTROPHILS ABSOLUTE AUTO 8.4 High [facility] Neutrophils/100 WBC (Bld) 73.2 % 43.0 - 75.0 % [facility] Platelet mean volume (Bld) [Entitic vol] 12.3 fL 9.5 - 13.5 fL [facility] RBC 4.73 [facility] WBC 11.5 High [facility] HbA1c (Bld) [Mass fraction]o n 05-28-2025 Interpretation and review of laboratory results Abnormal [facility] - Hematology and Cell countson 05-28-2025 HbA1c (Bld) [Mass fraction] 6.3 % [facility] Urine Cultureon 05-28-2025 Bacteria identified Cx Nom (U) <9,000 colonies/ml mixed bacterial skin contaminants 2 Days PERFORMED BY: [place] [id number] PATHOLOGIST MULTIM[employer] AUTHORING SPECIALIST DONALD MAJOR M.D. Normal [facility] Comment on above: Performed By: #### C UU #### [place] [id number] [facility] CA ECHO DOPPLER COMPLETEon 0 04-30-2025 [place] [address] Cardiology Report Signed Patient: ALIYA MOORE MR#: [id number] : 1965 Acct:[id number] Age/Sex: 59 / F ADM Date: 04/30/25 Loc: CARD Attending Dr: Marlene Soto M.D. Ordering Physician: Marlene Soto M.D. Date of Service: 04/30/25 Procedure(s): CA echo doppler complete Accession Number(s): [id number] cc: Brea Jj CREW DISPATCHER; Marlene Soto M.D. Patient Name: ALIYA MOORE MR#: [id number] : 1965 Exam Date: 04/30/2025 Ordering Doctor: [...] By: 04/30/25 1413 (more content not included)... [facility] Radiology, Radiologist, MD - 04/30/2025 The [place] [id number] Cardiology Report Signed Patient: ALIYA MOORE MR#: [id number] : 1965 Acct:[id number] Age/Sex: 59 / F ADM Date: 04/30/25 Loc: CARD Attending Dr: Marlene Soto M.D. Ordering Physician: Marlene Soto M.D. Date of Service: 04/30/25 Procedure(s): CA echo doppler complete Accession Number(s): [id number] cc: Brea Jj NP; Marlene Soto M.D. Patient Name: ALIYA MOORE MR#: [id number] : 1965 Exam Date: 04/30/2025 Ordering Doctor: [...] Signed By: 04/30/25 1413 DD/ 141 TD/TT: Flat Screen Worker: [facility] Radiology Study observation (narrative) [facility] CA ECHO DOPPLER COMPLETEOrde red By: Radiologist Radiology on 04-30-2025 [facility] [employer] Work Phone: MM TOMOSYNTHESIS SCREENING B Ion 04-17-2025 [place] [id number] Mammography Report Signed Patient: ALIYA MOORE MR#: [id number] : 1965 Acct:[id number] Age/Sex: 59 / F ADM Date: 04/17/25 Loc: MAMMO Attending Dr: Brea Jj NP Ordering Physician: Brea Jj NP Results: Date of Service: 04/17/25 Follow Up: Procedure(s): MM tomosynthesis screening BI Accession Number(s): [id number] cc: Brea Jj NP Patient Name: ALIYA MOORE MR#: [id number] : 1965 Exam Date: 04/17/2025 Ordering Doctor: ENRIQUE JJ RUG CLEANER HELPER RADIOLOGY REPORT PROCEDURE: MM TOMOSYNTHESIS SCREENING BI [...] Family Cancers None LOCATION: The [facility] BREAST COMPOSITION: The breasts are [...] Signed By: 04/17/25 1639 DD/ 1638 TD/TT: Flat Screen Worker: [facility] Radiology, Radiologist, MD - 04/17/2025 The [place] [id number] Mammography Report Signed Patient: ALIYA MOORE MR#: [id number] : 1965 Acct:[id number] Age/Sex: 59 / F ADM Date: 04/17/25 Loc: MAMMO Attending Dr: Brea Jj NP Ordering Physician: Brea Jj NP Results: Date of Service: 04/17/25 Follow Up: Procedure(s): MM tomosynthesis screening BI Accession Number(s): [id number] cc: Brea Jj NP Patient Name: ALIYA MOORE MR#: [id number] : 1965 Exam Date: 04/17/2025 Ordering Doctor: ENRIQUE JJ RUG CLEANER HELPER RADIOLOGY REPORT PROCEDURE: MM TOMOSYNTHESIS SCREENING BI [...] Family Cancers None LOCATION: The [facility] BREAST COMPOSITION: The breasts are [...] Signed By: 04/17/25 1639 DD/ 1638 TD/TT: Flat Screen Worker: [facility] Radiology Study observation (narrative) [facility] MM TOMOSYNTHESIS SCREENING B IOrdered By: Radiologist Radiology on 04-17-2025 [facility] Work Phone: Office Visiton 03-28-2025 Follow-up visit [id number] Aliya Moore 1965 F Date Provider Department Center 03/28/2025 [id number], EHAB CARD [facility] Family History Problem Relation Age of Onset Coronary artery disease Other Pulmonary embolism Other Deep vein thrombosis Other Family Status - Relation Status Age at Other Level of Service:20783 RI OFFICE/OUTPATIENT ESTABLISHED MOD MDM 30 MIN Normal [facility] Orders Onlyon 03-27-2025 Orders Only [id number] Aliya Moore 1965 F Date Provider Department Center 03/27/2025 [id number], HISTORICAL BH CARD [facility] Family History Problem Relation Age of Onset Coronary artery disease Other Pulmonary embolism Other Deep vein thrombosis Other Family Status - Relation Status Age at Other Normal [facility] HbA1c (Bld) [Mass fraction]o n 02-25-2025 Interpretation and review of laboratory results Abnormal [facility] - Hematology and Cell countson 02-25-2025 HbA1c (Bld) [Mass fraction] 6.1 % [facility] Ambulatory Visit Summaryon 0 01-14-2025 Ambulatory Visit [...] Aerosol) fluticasone nasal (fluticasone Nasal 0.05 mg/inh Cataract) formoterol-glycopyrro late (Bevespi Aerosphere 9 mcg-4.8 mcg/inh inhalation aerosol) formoterol-glycopyrro late (Bevespi Aerosphere 9 mcg-4.8 mcg/inh inhalation aerosol) furosemide (furosemide 20 mg Tab) gabapentin (gabapentin 300 mg Cap) hydrochlorothiazide-l isinopril (hydrochlorothiazide- lisinopril 25 mg-20 mg Tab) ondansetron (Zofran ODT 4 mg Tab-Dis) pantoprazole (Pantoprazole [address] Tab) pioglitazone (pioglitazone 15 mg Tab) potassium chloride (Potassium Chloride (Kfn-Vqco-Nat 10) 10 mEq oral tablet, extended release) [...] blood test, No, pp_set_radiology_subs pecialty, [facility] - Julito Medications What How Much When Instructions Unchanged [...] fluticasone nasal (fluticasone Nasal 0.05 mg/ inh Cataract) 2 Sprays Nasal Inhalation Every day each [...] 1 Caps (more content not included)... Normal [facility] Gastroenterology Office/Clin ic Noteon 01-14-2025 Gastroenterology Office/Clinic [...] drinker Depending on results, consider talking to information systems project manager (Dr Gaines) about switching medications Counseled on tobacco cessation [...] stool blood test (R19.5: Other fecal abnormalities) IKezia, personally scribed for Suzanna Eddy on 01/14/2025 08:18:10. . Documentation recorded by Antonina Jennings, accurately reflects the services I performed and decisions made by me. Suzanna Eddy MD Follow-up No qualifying data (more content not included)... Normal [facility] Comment on above: Result Comment: Elec tronically Signed By: Nunu BOOTHE, Suzanna Edouard\.br\Date and Time Signed: 01/14/25 08:43 EDT\.br\Electronically Co-Signed By: eKzia Jennings MA\.br\Date and Time Co-Signed: 01/14/25 08:33 EDT 36on 12-31-2024 36 Patient needs an appt Normal [facility] OCCULT BLOOD*on 12-21-2024 Interpretation and review of laboratory results Abnormal [facility] OCCULT BLOOD Positive Abnormal [facility] 36on 12-10-2024 36 Patient hasn't been seen since 2022 Normal [facility] ALL CBC WITH AUTO DIFFon BASOPHILS ABSOLUTE AUTO 0 N [facility] Basophils/100 WBC (Bld) 0.1 % Low 0.2 - 2.0 % [facility] Eosinophils/100 WBC (Bld) 3.5 % 0.9 - 7.0 % [facility] Erythrocyte distribution width (RBC) [Ratio] 14.6 % 11.0 - 15.0 % [facility] Hematocrit (Bld) [Volume fraction] 42.2 % 36.0 - 48.0 % [facility] Hemoglobin (Bld) [Mass/Vol] 14 g/dL 12.0 - 16.0 g/dL [facility] IMMATURE GRANULOCYTES ABS AUTO 0.03 [facility] Immature granulocytes/100 WBC (Bld) 0.3 % 0.0 - 0.5 % [facility] Interpretation and review of laboratory results Abnormal [facility] LYMPHOCYTES ABSOLUTE AUTO 1 Low [facility] Lymphocytes/100 WBC (Bld) 10.7 % Low 20.5 - 60.0 % [facility] MCH (RBC) [Entitic mass] 29.9 pg 26.7 - 34.0 pg [facility] MCHC (RBC) [Mass/Vol] 33.2 g/dL 29.9 - 35.2 g/dL [facility] MCV (RBC) [Entitic vol] 90 fL 81.0 - 99.0 fL [facility] MONOCYTES ABSOLUTE AUTO 0.6 N [facility] Monocytes/100 WBC (Bld) 6.9 % 1.7 - 12.0 % [facility] NEUTROPHILS ABSOLUTE AUTO 6.9 High [facility] Neutrophils/100 WBC (Bld) 78.5 % High 43.0 - 75.0 % [facility] Platelet mean volume (Bld) [Entitic vol] 12.4 fL 9.5 - 13.5 fL [facility] TBH EO # 0.3 [facility] TB PLT 179 [facility] RBC 4.69 [facility] WBC 8.9 [facility] HbA1c (Bld) [Mass fraction]o n 10-29-2024 Interpretation and review of laboratory results Normal [facility] - Hematology and Cell countson 10-29-2024 HbA1c (Bld) [Mass fraction] 7.7 % [facility] 36on 10-05-2024 36 Patient needs an appointment Normal [facility] CBC w/ Auto Diffon 4 Basophils/100 WBC (Bld) 0.6 % Normal 0.0-2.0 F [facility] Comment on above: Performed By: #### 2 [id number] #### [facility] [address] [place] [address] Basophils/Leukocytes Auto (Bld) [Pure # fraction] 0.0 E9/L Normal 0.0-0.2 [facility] Comment on above: Performed By: #### 2 303520 #### [facility] [address] [place] [address] Eosinophils (Bld) [#/Vol] 0.2 E9/L Normal 0.0-0.5 [facility] Comment on above: Performed By: #### 2 [id number] #### [facility] [address] [place] [address] Eosinophils/100 WBC (Bld) 2.4 % Normal 0.0-8.0 [facility] Comment on above: Performed By: #### 2 [id number] #### [facility] [address] [place] [address] Erythrocyte distribution width (RBC) [Ratio] 15.3 % High 10.9-14.2 [facility] Comment on above: Performed By: #### 2 602626 #### [facility] [address] [place] [address] Hematocrit (Bld) [Volume fraction] 42.4 % Normal 34.0-46.0 [facility] Comment on above: Performed By: #### 2 108917 #### [facility] [address] [place] [address] Hemoglobin (Bld) [Mass/Vol] 14.4 g/dL Normal 12.0-16.0 [facility] Comment on above: Performed By: #### 2 992538 #### [facility] [address] [place] [address] Lymphocytes (Bld) [#/Vol] 1.6 E9/L Normal 1.0-4.0 [facility] Comment on above: Performed By: #### 2 412687 #### [facility] [address] [place] [address] Lymphocytes/100 WBC (Bld) 20.2 % Normal 14.0-50.0 [facility] Comment on above: Performed By: #### 2 422512 #### [facility] [address] [place] [address] MCH (RBC) [Entitic mass] 30.3 pg Normal 27.0-34.0 [facility] Comment on above: Performed By: #### 2 271976 #### [facility] [address] [place] [address] MCHC (RBC) [Mass/Vol] 34.0 g/dL Normal 31.4-36.0 [facility] Comment on above: Performed By: #### 2 705606 #### [facility] [address] [place] [address] MCV (RBC) [Entitic vol] 89.1 fL Normal 80.0-100.0 F [facility] Comment on above: Performed By: #### 2 435239 #### [facility] [address] [place] [address] Monocytes (Bld) [#/Vol] 0.5 E9/L Normal 0.2-1.0 F [facility] Comment on above: Performed By: #### 2 335722 #### [facility] [address] [place] [address] Neutrophils (Bld) [#/Vol] 5.4 E9/L Normal 2.0-7.5 [facility] Comment on above: Performed By: #### 2 297436 #### [facility] [address] [place] [address] Neutrophils/100 WBC (Bld) 69.8 % Normal 36.0-75.0 [facility] Comment on above: Performed By: #### 2 778559 #### [facility] [address] [place] [address] Platelet mean volume (Bld) [Entitic vol] 10.8 fL Normal 6.4-10.8 [facility] Comment on above: Performed By: #### 2 698979 #### [facility] [address] [place] [address] Platelets (Bld) [#/Vol] 157.0 E9/L Normal 150.0-500.0 [facility] Comment on above: Performed By: #### 2 127374 #### [facility] [address] [place] [address] RBC (Bld) [#/Vol] 4.8 E12/L Normal 4.3-5.9 [facility] Comment on above: Performed By: #### 2 699829 #### [facility] [address] [place] [address] WBC corrected for nucl RBC Auto (Bld) [#/Vol] 7.8 E9/L Normal 4.0-11.0 [facility] Comment on above: Performed By: #### 2 244408 #### [facility] [address] [place] [address] CHEMISTRYOrdered By: SYSTEM SYSTEM on 07-16-2024 Ferritin [...] 07-16-2024 Ferritin [Mass/Vol] 76 ng/mL Normal 11-307 [facility] Comment on above: Performed By: #### 2 624135 #### [facility] [address] [place] [address] HEMATOLOGYOrdered By: SYSTEM SYSTEM on 07-16-2024 Basophils/100 [...] 07-16-2024 Iron [Mass/Vol] 74 microgram/dL Normal 35-153 [facility] Comment on above: Performed By: #### 2 144575 #### [facility] [address] [place] [address] Iron Saturationon 07-16-2024 Iron binding capacity [Mass/Vol] 329 microgram/dL Normal 250-400 [facility] Comment on above: Performed By: #### 2 441320 #### [facility] [address] [place] [address] Iron saturation [Mass fraction] 22 % Normal 20-50 [facility] Comment on above: Performed By: #### 2 195165 #### [facility] [address] [place] [address] Transferrinon 07-16-2024 Transferrin [Mass/Vol] 235 mg/dL Normal 200-370 [facility] Comment on above: Performed By: #### 2 217409 #### [facility] [address] [place] [address] Methylmalonic Acidon 024 Methylmalonate [Moles/Vol] 301 nmol/L Invalid Interpretation Code 0-378 [facility] Comment on above: Result Comment: This test was developed and its performance characteristics determined by [facility]. It has not been cleared or approved by the Food and Drug Administration. Performed at: [address] [id number] MD Tony Laird Performed By: #### 1 [id number], [id number], [id number], [id number], [id number], [id number], [id number] ####[facility] [id number] [place] [address] Oncology Progress Noteon Oncology Progress Note Chief Complaint PE Pt states she has had a couple visits to hosp. Poss [facility]. Pt just has ques on how blood [...] female cigarette smoker with history of hypertension, gef-xkexsdc-mtzpmxiap diabetes mellitus, obesity, chronic hypoxic respiratory failure [...] the time denies any dizziness or lightheadedness naylablanca benson sees pulmonology next month and is due for her annual low dose CT scan has had some GI issues in the past with pain, cramping a lot. has had colonoscopy at [facility] Physical Examination General: alert, no acute [...] [facility] [address] [place] [phone] Additional Instructions: iron studies, b12, folate, mm (more content not included)... Normal [facility] CHEMISTRYOrdered By: SYSTEM SYSTEM on [...] Treatmenton 12-29 Consent for Treatment [id number] .[id number] Normal [facility] Consent for Treatment [id number] 403 [id number] .00TIFF Normal [facility] Ferritinon 01-16-2024 Ferritin [Mass/Vol] 63 ng/mL Normal 11-307 [facility] Comment on above: Performed By: #### 1 0579367, 4501377, 0813299, 1040491, 6528719, 0495019, 3908430 ####[facility] [address] [place] [address] Folateon 01-16-2024 Folate [Mass/Vol] 15.3 ng/mL Normal >=6.7 [facility] Comment on above: Performed By: #### 1 9300749, 5963064, 8512278, 8623286, 9539970, 4016096, 5813684 ####[facility] [address] [place] [address] Ironon 01-16-2024 Iron [Mass/Vol] 63 microgram/dL Normal 35-153 [facility] Comment on above: Performed By: #### 1 3701352, 0882838, 7026264, 9437215, 5435532, 5413946, 2487983 ####[facility] [address] [place] [address] Iron Saturationon 01-16-2024 Iron binding capacity [Mass/Vol] 365 microgram/dL Normal 250-400 [facility] Comment on above: Performed By: #### 1 8944842, 7952923, 3480098, 3767802, 8568063, 1351629, 1370320 ####[facility] [address] [place] [address] Iron saturation [Mass fraction] 17 % Low 20-50 [facility] Comment on above: Performed By: #### 1 5477911, 4702241, 7534765, 3495621, 3344915, 3325579, 1906266 ####[facility] [address] [place] [address] Transferrinon 01-16-2024 Transferrin [Mass/Vol] 261 mg/dL Normal 200-370 [facility] Comment on above: Performed By: #### 1 5030346, 7282553, 0802479, 0752050, 5218717, 5393400, 1099912 ####[place] [address] [place] [address] Vit B12on 01-16-2024 Cobalamin (Vitamin B12) [Mass/Vol] 420 pg/mL Normal 50-1500 [facility] Comment on above: Performed By: #### 1 7681485, 1700448, 4307278, 4183611, 4696838, 3058586, 9167211 ####[facility] [address] [place] [address] CBC w/ Auto Diffon 4 Basophils/100 WBC (Bld) 0.6 % Normal 0.0-2.0 F [facility] Comment on above: Performed By: #### 1 6261422, 8102135, 4189315, 7135038 ####[address] [address] Basophils/Leukocytes Auto (Bld) [Pure # fraction] 0.0 E9/L Normal 0.0-0.2 [facility] Comment on above: Performed By: #### 1 1439344, 3685123, 6008605, 3009130 ####[address] [address] Eosinophils (Bld) [#/Vol] 0.2 E9/L Normal 0.0-0.5 [facility] Comment on above: Performed By: #### 1 1798795, 1594679, 6043220, 9669213 ####[address] [place] [address] Eosinophils/100 WBC (Bld) 3.0 % Normal 0.0-8.0 [facility] Comment on above: Performed By: #### 1 5292621, 5185876, 6457591, 8651548 ####[address] [address] Erythrocyte distribution width (RBC) [Ratio] 15.7 % High 10.9-14.2 [facility] Comment on above: Performed By: #### 1 4889132, 4712716, 9987940, 9468702 ####[address] [address] Hematocrit (Bld) [Volume fraction] 36.9 % Normal 34.0-46.0 [facility] Comment on above: Performed By: #### 1 6204269, 3130656, 0421401, 1818409 ####[address] [address] Hemoglobin (Bld) [Mass/Vol] 12.4 g/dL Normal 12.0-16.0 [facility] Comment on above: Performed By: #### 1 2983372, 5219431, 6110928, 2537611 ####[address] [address] Lymphocytes (Bld) [#/Vol] 1.4 E9/L Normal 1.0-4.0 [facility] Comment on above: Performed By: #### 1 3669009, 4053999, 2065742, 3694983 ####[address] [address] Lymphocytes/100 WBC (Bld) 20.7 % Normal 14.0-50.0 [facility] Comment on above: Performed By: #### 1 5343526, 5194871, 5945909, 6273351 ####[address] [address] MCH (RBC) [Entitic mass] 29.5 pg Normal 27.0-34.0 [facility] Comment on above: Performed By: #### 1 1216302, 5918036, 7057708, 4803427 ####[place] [address] MCHC (RBC) [Mass/Vol] 33.6 g/dL Normal 31.4-36.0 [facility] Comment on above: Performed By: #### 1 2393710, 6294861, 3256863, 8530158 ####[place] [address] MCV (RBC) [Entitic vol] 87.9 fL Normal 80.0-100.0 F [facility] Comment on above: Performed By: #### 1 8352129, 6889322, 4915526, 6362705 ####[place] [address] Monocytes (Bld) [#/Vol] 0.6 E9/L Normal 0.2-1.0 [facility] Comment on above: Performed By: #### 1 1000389, 7709176, 9061587, 5080406 ####[place] [address] Neutrophils (Bld) [#/Vol] 4.5 E9/L Normal 2.0-7.5 [facility] Comment on above: Performed By: #### 1 7753628, 5017647, 0688132, 1862084 ####[address] [address] Neutrophils/100 WBC (Bld) 66.7 % Normal 36.0-75.0 [facility] Comment on above: Performed By: #### 1 3214255, 8598140, 9021700, 1419954 ####[address] [address] Platelet mean volume (Bld) [Entitic vol] 10.3 fL Normal 6.4-10.8 [facility] Comment on above: Performed By: #### 1 5841429, 0285040, 6914607, 9715206 ####[facility] [address] [place] [address] Platelets (Bld) [#/Vol] 196.0 E9/L Normal 150.0-500.0 [facility] Comment on above: Performed By: #### 1 2466543, 1128853, 0653154, 5820759 ####[facility] [address] [place] [address] RBC (Bld) [#/Vol] 4.2 E12/L Low 4.3-5.9 [facility] Comment on above: Performed By: #### 1 0133549, 5242512, 4216733, 4156983 ####[facility] [address] [place] [address] WBC corrected for nucl RBC Auto (Bld) [#/Vol] 6.8 E9/L Normal 4.0-11.0 [facility] Comment on above: Performed By: #### 1 4751206, 3840741, 5424012, 4358017 ####[facility] [address] [place] [address] CHEMISTRYOrdered By: SYSTEM SYSTEM on 01-09-2024 Albumin [...] 01-09-2024 Albumin [Mass/Vol] 4.1 g/dL Normal 3.3-5.0 [facility] Comment on above: Performed By: #### 1 4404593, 7140050, 2579392, 0506600 ####[facility] [address] [place] [address] Albumin/Globulin (S) [Mass conc ratio] 1.2 Normal 1.1-2.2 [facility] Comment on above: Performed By: #### 1 5405090, 9178863, 3212245, 2783558 ####[facility] [address] [place] [address] ALP [Catalytic activity/Vol] 61 Int._Unit/L Normal 21-98 [facility] Comment on above: Performed By: #### 1 2057744, 6388698, 8822872, 6089796 ####[facility] [address] [place] [address] ALT No additional P-5'-P [Catalytic activity/Vol] 17 Int._Unit/L Normal 6-46 [facility] Comment on above: Performed By: #### 1 5342048, 4521940, 1562434, 1466753 ####[facility] [address] [place] [address] Anion gap [Moles/Vol] 12 mmol/L Normal 6-16 [facility] Comment on above: Performed By: #### 1 1708157, 0460167, 1380070, 6988238 ####[address] [address] [place] [address] AST [Catalytic activity/Vol] 18 Int._Unit/L Normal 5-43 [facility] Comment on above: Performed By: #### 1 3174043, 8878373, 0781853, 4250134 ####[place] [place] [address] Bilirubin [Mass/Vol] 0.4 mg/dL Normal 0.0-1.1 [facility] Comment on above: Performed By: #### 1 6514112, 4248095, 7459873, 0187621 ####[address] [place] [address] Calcium [Mass/Vol] 9.8 mg/dL Normal 8.9-11.1 [facility] Comment on above: Performed By: #### 1 4639980, 0242923, 6783140, 0179312 ####[facility] [address] [place] [address] Chloride [Moles/Vol] 101 mmol/L Normal 101-111 [facility] Comment on above: Performed By: #### 1 5584645, 1116746, 5050223, 2022615 ####[address] [place] [place] [address] CO2 [Moles/Vol] 28 mmol/L Normal 21-31 [facility] Comment on above: Performed By: #### 1 0668837, 0331902, 1688699, 1116515 ####[facility] [address] [place] [address] Creatinine [Mass/Vol] 1.0 mg/dL Normal 0.5-1.3 [facility] Comment on above: Performed By: #### 1 5313090, 7547349, 8381026, 2608873 ####[facility] [address] [place] [address] Globulin (S) [Mass/Vol] 3.4 g/dL Normal 1.4-4.0 [facility] Comment on above: Performed By: #### 1 7277220, 0381512, 9851403, 4306009 ####[facility] [address] [place] [address] Glucose [Mass/Vol] 98 mg/dL Normal 55-199 [facility] Comment on above: Performed By: #### 1 7211744, 6370063, 7120160, 4475990 ####[facility] [address] [place] [address] Potassium [Moles/Vol] 4.3 mmol/L Normal 3.5-5.3 [facility] Comment on above: Performed By: #### 1 4679285, 4384324, 7546732, 0182139 ####[facility] [address] [place] [address] Protein [Mass/Vol] 7.5 g/dL Normal 6.0-7.8 [facility] Comment on above: Performed By: #### 1 0465787, 6199216, 0567495, 8100090 ####[facility] [address] [place] [address] Sodium [Moles/Vol] 137 mmol/L Normal 135-145 [facility] Comment on above: Performed By: #### 1 9837318, 2736011, 8940288, 3745330 ####[facility] [address] [place] [address] Urea nitrogen [Mass/Vol] 21 mg/dL Normal 5-21 [facility] Comment on above: Performed By: #### 1 6195019, 9426649, 4874378, 8292331 ####[facility] [address] [place] [address] Urea nitrogen/Creatinine [Mass ratio] 21 No Units High 10-20 [facility] Comment on above: Performed By: #### 1 1973173, 3147465, 3858477, 8867868 ####[facility] [address] [place] [address] COAGULATIONOrdered By: Catina Miles on 01-09-2024 Fibrin [...] Treatmenton 12-29 Consent for Treatment [id number] 403 [id number]#1 .00TIFF Normal [facility] D-Dimeron 01-09-2024 Fibrin D-dimer FEU (PPP) [Mass/Vol] 404 [id number] Normal 215-500 [facility] Comment on above: Result [...] infections Liver cirrhosis Performed By: #### 1 0355659, 0369349, 3142296, 0778569 ####[facility] [address] [place] [address] HEMATOLOGYOrdered By: SYSTEM SYSTEM on 01-09-2024 Basophils/100 [...] 01-09-2024 eGFR 65 mL/min/1.73 m2 Normal >=59 [facility] Comment on above: Order Comment: Order added by Discern Expert. Performed By: #### 1 4784647, 9195728, 3771969, 2960906 ####[facility] [address] [place] [address] CT Abdomen/Pelvis w/ Contras ton 11-24-2023 CT [...] 14:25 EST by Vincenzo Colvin DO Normal [facility] Auto Diffon 09-25-2023 Basophils/100 WBC (Bld) 0.6 % Normal 0.0-2.0 F [facility] Comment on above: Order Comment: Order Added by Discern Expert. Performed By: #### 2 219594, 0754305, 8463859, 3588748, 75636835, 3559139 ####[address] [address] Basophils/Leukocytes Auto (Bld) [Pure # fraction] 0.1 E9/L Normal 0.0-0.2 [facility] Comment on above: Order Comment: Order Added by Discern Expert. Performed By: #### 2 566728, 5612718, 7766622, 3655576, 78367420, 4131304 ####[address] [address] Eosinophils/100 WBC (Bld) 1.5 % Normal 0.0-8.0 [facility] Comment on above: Order Comment: Order Added by Discern Expert. Performed By: #### 2 262149, 1369013, 0305835, 3184186, 18087375, 5810466 ####[address] [place] [place] [address] Eosinophils/Leukocytes Auto (Bld) [Pure # fraction] 0.1 E9/L Normal 0.0-0.5 [facility] Comment on above: Order Comment: Order Added by Discern Expert. Performed By: #### 2 804559, 7124157, 2943777, 4204953, 50224554, 1084096 ####[facility] [address] [place] [address] Lymphocytes/100 WBC (Bld) 15.3 % Normal 14.0-50.0 [facility] Comment on above: Order Comment: Order Added by Discern Expert. Performed By: #### 2 403769, 5303393, 1048516, 8573969, 00441996, 8048280 ####[address] [place] [address] Lymphocytes/Leukocytes Auto (Bld) [Pure # fraction] 1.5 E9/L Normal 1.0-4.0 [facility] Comment on above: Order Comment: Order Added by Discern Expert. Performed By: #### 2 704847, 4288287, 8239876, 6459831, 53151662, 5471675 ####[address] [address] Monocytes/100 WBC (Bld) 7.4 % Normal 4.0-14.0 [facility] Comment on above: Order Comment: Order Added by Discern Expert. Performed By: #### 2 136720, 8104378, 3528602, 3877545, 08879715, 0829089 ####[address] [address] Monocytes/Leukocytes Auto (Bld) [Pure # fraction] 0.7 E9/L Normal 0.2-1.0 [facility] Comment on above: Order Comment: Order Added by Discern Expert. Performed By: #### 2 984436, 9760129, 5124073, 3897670, 95329006, 9025439 ####[address] [place] [address] Neutrophils/100 WBC (Bld) 75.2 % High 36.0-75.0 [facility] Comment on above: Order Comment: Order Added by Discern Expert. Performed By: #### 2 448015, 8801177, 1072276, 8486697, 90455820, 5120693 ####[place] [place] [address] Neutrophils/Leukocytes Auto (Bld) [Pure # fraction] 7.1 E9/L Normal 2.0-7.5 [facility] Comment on above: Order Comment: Order Added by Discern Expert. Performed By: #### 2 407138, 5539988, 7772762, 0955123, 03894616, 6864290 ####[facility] [address] [place] [address] BMPon 09-25-2023 Creatinine [Mass/Vol] 0.9 mg/dL Normal 0.5-1.3 [facility] Comment on above: Performed By: #### 2 402693, 3909987, 1821724, 8516017, 66386881, 2987095 ####[facility] [address] [place] [address] Urea nitrogen [Mass/Vol] 20 mg/dL Normal 5-21 [facility] Comment on above: Performed By: #### 2 218167, 3015995, 4133920, 2170613, 11857380, 8848871 ####[facility] [address] [place] [address] Urea nitrogen/Creatinine [Mass ratio] 22 No Units High 10-20 [facility] Comment on above: Performed By: #### 2 016878, 2319175, 6890877, 7372883, 36189422, 1518702 ####[facility] [address] [place] [address] Anion gap [Moles/Vol] 10 mmol/L Normal 6-16 [facility] Comment on above: Performed By: #### 2 395119, 9657551, 9111604, 8892331, 80743527, 6987791 ####[facility] [address] [place] [address] Calcium [Mass/Vol] 10.4 mg/dL Normal 8.9-11.1 [facility] Comment on above: Performed By: #### 2 707510, 7170325, 0402842, 5802056, 86548097, 4050101 ####[facility] [address] [place] [address] Chloride [Moles/Vol] 101 mmol/L Normal 101-111 [facility] Comment on above: Performed By: #### 2 972291, 5823271, 6177872, 2619312, 01665834, 6000402 ####[facility] [address] [place] [address] CO2 [Moles/Vol] 27 mmol/L Normal 21-31 [facility] Comment on above: Performed By: #### 2 355997, 7551316, 9896414, 1754226, 08923390, 7926476 ####[facility] [address] [place] [address] Glucose [Mass/Vol] 155 mg/dL Normal 55-199 [facility] Comment on above: Result Comment: If t his glucose result represents a fasting glucose, interpretation should refer to the following reference range: 55-99 mg/dL Performed By: #### 2 050481, 3170559, 8132371, 5956677, 30835721, 9539976 ####[facility] [address] [place] [address] Potassium [Moles/Vol] 4.0 mmol/L Normal 3.5-5.3 [facility] Comment on above: Performed By: #### 2 249428, 7837512, 7859790, 8251036, 50512346, 4353633 ####[facility] [address] [place] [address] Sodium [Moles/Vol] 134 mmol/L Low 135-145 [facility] Comment on above: Performed By: #### 2 548444, 3194198, 2271230, 5832299, 10838280, 3877737 ####[facility] [address] [place] [address] CBC w/ Auto Diffon 3 Erythrocyte distribution width (RBC) [Ratio] 15.3 % High 10.9-14.2 [facility] Comment on above: Performed By: #### 2 976362, 3598952, 6113473, 2830461, 79783831, 7471235 ####[address] [address] Hematocrit (Bld) [Volume fraction] 38.4 % Normal 34.0-46.0 [facility] Comment on above: Performed By: #### 2 331599, 0675658, 1862928, 1943139, 97603714, 9877854 ####[place] [address] Hemoglobin (Bld) [Mass/Vol] 13.0 g/dL Normal 12.0-16.0 [facility] Comment on above: Performed By: #### 2 843494, 6471171, 8488740, 1928917, 76861391, 3220376 ####[place] [address] MCH (RBC) [Entitic mass] 29.4 pg Normal 27.0-34.0 [facility] Comment on above: Performed By: #### 2 167176, 0109536, 2610145, 3353122, 74751097, 2376457 ####[place] [address] MCHC (RBC) [Mass/Vol] 33.9 g/dL Normal 31.4-36.0 [facility] Comment on above: Performed By: #### 2 215259, 0276912, 8375196, 1149799, 50211528, 5162639 ####[address] [address] MCV (RBC) [Entitic vol] 86.6 fL Normal 80.0-100.0 F [facility] Comment on above: Performed By: #### 2 937393, 9779076, 5652395, 1203947, 98646134, 8465243 ####[address] [address] Platelet mean volume (Bld) [Entitic vol] 9.5 fL Normal 6.4-10.8 [facility] Comment on above: Performed By: #### 2 178237, 8493683, 4445805, 4888707, 68727254, 7721928 ####[facility] [address] [place] [address] Platelets (Bld) [#/Vol] 207.0 E9/L Normal 150.0-500.0 [facility] Comment on above: Performed By: #### 2 662561, 7060997, 3189705, 8820417, 50289338, 0323180 ####[facility] [address] [place] [address] RBC (Bld) [#/Vol] 4.4 E12/L Normal 4.3-5.9 [facility] Comment on above: Performed By: #### 2 555890, 5938782, 2279352, 1896732, 25429448, 8057140 ####[facility] [address] [place] [address] WBC corrected for nucl RBC Auto (Bld) [#/Vol] 9.5 E9/L Normal 4.0-11.0 [facility] Comment on above: Performed By: #### 2 115543, 2741771, 2040826, 3183955, 61948358, 6648911 ####[facility] [address] [place] [address] CHEMISTRYOrdered By: SYSTEM SYSTEM on 09-25-2023 Albumin [...] 20 mg/dL Normal 5 - 21 mg/dL [facility] Remisol Urea nitrogen/Creatinine [Mass ratio] 22 mg/mg High 10 - 20 [facility] Remisol Consent for Treatmenton 09-01 Consent for Treatment [id number]#1 .00TIFF Normal [facility] Discharge Instructionson Discharge Instructions [id number]# 1.00TIFF Normal [facility] ED Clinical Summaryon 2022 ED Clinical Summary [place] [id number] ED Clinical Summary Person Information Name: ALIYA MOORE Hilary/[facility] Age: 57 Years : 1965 Sex: Female Language: Malaysian PCP: BREA JJ CNP Marital Status: Visit [...] 09/25/2023 21:57:44 09/25/2023 21:57:44 09/25/2023 21:57:44 ADDRESS: [address] [place] [address] [address] [facility] [id number] PHYS DOC NOTES: MEDICAL INFORMATION: Prescriptions Given: [facility], [address] [place], [place] [id number], [phone] dicyclomine (Bentyl 10 mg Cap) 1 Capsules [...] day. fluticasone nasal (fluticasone Nasal 0.05 mg/inh Cataract) 2 Sprays Nasal Inhalation every day. each [...] Mouth every day. potassium chloride (Potassium Chloride (Yzc-Ehpd-Qfg 10) 10 mEq oral tablet, extended release) pramipexole (pramipexole 0.5 mg oral tablet) 1 Tablets By Mouth 3 times a day. theophylline (theophylline 300 mg ER Tab) 1 Tablets By Mouth every 12 hours. trazodone (traZODONE 50 mg Tab) 1 Tablets By Mouth once a day (at bedtime). PATIENT EDUCATION INFORMATION: Instructions: Cholelithiasis Follow up: With: Address: When: [facility] [address] [facility] [address], [address] [place] [phone] Business (1) In 3 days 09/28/2023 With: Address: When: BREA JJ [address] [place], [place] [phone] Business (1) In 3 days DIAGNOSIS: AP (abdominal pain); Cholelithiasis; N&V (nausea and vomiting) Normal [facility] ED Note-Physicianon 09-25-20 ED Note-Physician Basic Information Time Seen: Moses Fsicher DOLakia 09/25/2023 19:14 Chief Complaint pt c\o abd [...] and Complexity of Problems Differential Diagnosis: [] [facility] Data External documents reviewed: N/A My EKG [...] q8hr, # 12 tab(s), Refills(s) 0, Pharmacy: [facility], 175, cm, 09/25/23 18:25:00 EST, Height/Length [...] Clinic In 3 days 09/28/2023 EST [address] [facility] [address] Floor, [address] [place] [phone] Business (1) Additional Instructions: BREA JJ In [address] days [address] [place] [address] [phone] Business (1) Additional Instructions: Patient Education Cholelithiasis Problem List/Past Medical History Ongoing Smoker Historical No qualifying data Procedure/Surgical History delivery (05/05/1987), delivery (06/20/1984), Cyst, Knee. Medications Inpatient morphine 4 mg/mL Inj, 4 mg= 1 mL, IV Push, Once Zofran 4 mg/2 mL Injection, 4 mg= 2 mL, IV Push, Once Home albuterol- (more content not included)... Normal [facility] Comment on above: Result Comment: Dorene yovani Signed By: Moses Fischer DO\.br\Date and Time [...] to break (more content not included)... Normal [facility] ED Patient Summaryon 023 ED Patient Summary [address] [address] Patient Discharge Instructions Person Information Name: ALIYA MOORE Age: 57 Years Arrival Date: 09/25/2023 18:09:44 Discharge Diagnosis: AP (abdominal pain); Cholelithiasis; N&V (nausea and vomiting) Primary Care Physician: BREA JJ CNP Provider Information Primary Provider: Moses Fischer DO Advanced Engineer Fishing Vessel:None The exam and treatment you received in the Emergency Department were for an urgent problem and are not intended as complete care. It is important that you follow up with a doctor, nurse practitioner, or physician?s dental chairside assistant for ongoing care. If your symptoms [...] Instructions: With: Address: When: [facility] [address] [facility] [address], [address] [place] [phone] Business (1) In 3 days 09/28/2023 With: Address: When: BREA JJ [address] [place], [place] [phone] Business (1) In 3 days In the event that this physician does not participate in your insurance network, please consult with your insurance company to find a nearby participating provider. Patient Education Materials: Cholelithiasis A MESSAGE TO ALL PATIENTS REGARDING OPIOIDS PRESCRIPTION OPIOIDS: WHAT YOU NEED TO KNOW Prescription opioids can be used to help relieve sbgpkupp-ma-rmaeqh pain and are often prescribed following a [...] and overdos (more content not included)... Normal [facility] HEMATOLOGYOrdered By: SYSTEM SYSTEM on [...] 7.1 E9/L Normal 2.0 - 7.5 E9/L [facility] HemeAutoSS HEMATOLOGYOrdered By: Rula Sanders on 09-25-2023 [...] 09-25-2023 Albumin [Mass/Vol] 3.9 g/dL Normal 3.3-5.0 [facility] [facility] Comment on above: Performed By: #### 2 191850, 0043504, 0180278, 1214411, 67731277, 9280666 ####[facility] [address] [place] [address] Albumin/Globulin (S) [Mass conc ratio] 1.0 Low 1.1-2.2 [facility] Comment on above: Performed By: #### 2 075103, 8744011, 9717577, 0477531, 88997157, 0445648 ####[facility] [address] [place] [address] ALP [Catalytic activity/Vol] 66 Int._Unit/L Normal 21-98 [facility] Comment on above: Performed By: #### 2 361520, 0337269, 0822390, 2549165, 83520577, 9106537 ####[address] [address] ALT No additional P-5'-P [Catalytic activity/Vol] 25 Int._Unit/L Normal 6-46 [facility] Comment on above: Performed By: #### 2 011000, 9050565, 4943988, 0482337, 99898868, 2328887 ####[facility] [address] [place] [address] AST [Catalytic activity/Vol] 25 Int._Unit/L Normal 5-43 [facility] Comment on above: Performed By: #### 2 251724, 4555093, 1691718, 8404522, 14985600, 7027907 ####[facility] [address] [place] [address] Bilirubin [Mass/Vol] 0.2 mg/dL Normal 0.0-1.1 [facility] Comment on above: Performed By: #### 2 590403, 6184862, 8297528, 3332438, 04419217, 0378998 ####[address] [address] Bilirubin.direct [Mass/Vol] 0.1 mg/dL Normal 0.1-0.4 [facility] Comment on above: Performed By: #### 2 334217, 3038030, 3511397, 5413268, 61713575, 8073480 ####[facility] [address] [place] [address] Bilirubin.indirect [Mass or moles/Vol] 0.1 mg/dL Normal 0.1-0.9 [facility] Comment on above: Performed By: #### 2 463104, 4816017, 1353611, 6153846, 87282771, 0909246 ####[address] [place] [address] Globulin (S) [Mass/Vol] 4.0 g/dL Normal 1.4-4.0 F [facility] Comment on above: Performed By: #### 2 484996, 8213264, 1832710, 5708839, 45974706, 2815487 ####[address] [address] Protein [Mass/Vol] 7.9 g/dL High 6.0-7.8 [facility] Comment on above: Performed By: #### 2 377350, 4934992, 3834322, 2439200, 62284080, 6000510 ####[address] [address] Lipase Levelon 09-25-2023 Lipase [Catalytic activity/Vol] 39 U/L Normal 13-58 [facility] Comment on above: Performed By: #### 2 433677, 3575651, 5884349, 1576118, 35362858, 3301127 ####[address] [address] Monitor Recordon 09-25-2023 Monitor Record [id number]# 1.00TIFF Normal [facility] RAD - Preliminary Cat Scan R eporton 09-25-2023 RAD - Preliminary Cat Scan Report [id number]# 1.00TIFF Normal [facility] UA With Cult Reflexon 2022 Bilirubin Ql (U) Negative Normal Negative [facility] Comment on above: Performed By: #### 1 8172618 ####[address] [place] [address] Clarity (U) CLEAR Normal Clear [facility] Comment on above: Performed By: #### 1 5471812 ####[place] [address] [address] Color (U) YELLOW Normal Yellow [facility] Comment on above: Performed By: #### 1 4168914 ####[address] [address] Epithelial cells.squamous LM.HPF (Urine sed) [#/Area] 0-2 Normal 0-2 [facility] Comment on above: Performed By: #### 1 1542742 ####[address] [address] Glucose Test strip (U) [Mass/Vol] Negative Normal Negative [facility] Comment on above: Performed By: #### 1 2371853 ####[address] [address] Hemoglobin Ql (U) Negative Normal Negative [facility] Comment on above: Performed By: #### 1 8608610 ####[address] [address] Ketones (U) [Mass/Vol] Negative Normal Negative [facility] Comment on above: Performed By: #### 1 5553762 ####[address] [address] [place].plasma/[place]. RBC (Bld) [Mass ratio] 0-3 Normal 0-3 [facility] Comment on above: Performed By: #### 1 8766005 ####[address] [address] Nitrite Ql (U) Negative Normal Negative [facility] Comment on above: Performed By: #### 1 6516463 ####[address] [address] pH (U) 6.5 [pH] Invalid Interpretation Code 5.0-9.0 [facility] Comment on above: Performed By: #### 1 4494790 ####[address] [address] Protein (U) [Mass/Vol] Negative Normal Negative [facility] Comment on above: Performed By: #### 1 6919364 ####[facility] [address] [place] [address] Specific gravity (U) [Rel density] <=1.005 Invalid Interpretation Code 1.005-1.030 [facility] Comment on above: Performed By: #### 1 3098886 ####[address] [address] Type of Urine collection method Clean Catch Normal [facility] Comment on above: Performed By: #### 1 5172310 ####[facility] [address] [place] [address] Urobilinogen Qn (U) 0.2 {Nayla'U}/dL Normal 0.0-1.0 [facility] Comment on above: Performed By: #### 1 9341474 ####[address] [address] WBC Auto Ql (U) Negative Normal Negative [facility] Comment on above: Performed By: #### 1 0569590 ####[facility] [address] [place] [address] WBC LM.HPF (Urine sed) [#/Area] 0-5 Normal 0-5 [facility] Comment on above: Performed By: #### 1 6147789 ####[address] [address] URINALYSISOrdered By: Tanya Nathan on 09-25-2023 Bilirubin Ql (U) Negative (09/25/23 9:53 PM) Normal Negative [facility] UA Auto SS Clarity (U) Clear (09/25/23 9:53 PM) Normal Clear [facility] UA Auto SS Color (U) Yellow (09/25/23 9:53 PM) Normal Yellow [facility] UA Auto SS Epithelial cells.squamous LM.HPF (Urine sed) [#/Area] 0-2 /HPF Normal 0-2/HPF [facility] UA Aut o SS Glucose Test strip (U) [Mass/Vol] Negative (09/25/23 9:53 PM) Normal Negative [facility] UA Auto SS Hemoglobin Ql (U) Negative (09/25/23 9:53 PM) Normal Negative [facility] UA Auto SS Ketones (U) [Mass/Vol] Negative (09/25/23 9:53 PM) Normal Negative [facility] UA Auto SS [place].plasma/[place]. RBC (Bld) [Mass ratio] 0-3 /HPF Normal [...] [facility] UA Auto SS Urobilinogen Qn (U) 0.5128030 {Nayla'U}/dL Normal 0.0 - 1.0 EU/dL [facility] UA Auto SS WBC Auto Ql (U) Negative (09/25/23 9:53 PM) Normal Negative [facility] UA Auto SS WBC LM.HPF (Urine sed) [#/Area] 0-5 /HPF Normal 0-5/HPF [facility] UA Auto SS eGFRon 09-25-2023 GFR/1.73 sq M.predicted among non-blacks MDRD (S/P/Bld) [Vol rate/Area] 74 mL/min/1.73 m2 Normal >=59 [facility] Comment on above: Order Comment: Order added by Discern Expert. Result Comment: [employer] Supervisor nita kidney disease could be indicated at eGFR's of less than 60 mL/min/1.73m2. Kidney failure is indicated at less than 15 mL/min/1.73m2. Performed By: #### 2 042976, 5915410, 3628288, 0654548, 80614157, 4337863 ####[facility] [address] [place] [address] Auto Diffon 09-08-2023 Basophils/100 WBC (Bld) 0.2 % Normal 0.0-2.0 [facility] Comment on above: Order Comment: Order Added by Discern Expert. Performed By: #### 2 630139, 07708951, 1539154, 5072143, 06976788, 66649758, 95868740, 2127841 ####[facility] [address] [place] [address] Basophils/Leukocytes Auto (Bld) [Pure # fraction] 0.0 E9/L Normal 0.0-0.2 [facility] Comment on above: Order Comment: Order Added by Discern Expert. Performed By: #### 2 145255, 74332253, 8936509, 9553043, 44526878, 39681015, 85612307, 0429801 ####[address] [address] Eosinophils/100 WBC (Bld) 0.8 % Normal 0.0-8.0 [facility] Comment on above: Order Comment: Order Added by Discern Expert. Performed By: #### 2 744391, 30618322, 5185513, 5567377, 52253722, 77875017, 49488444, 5504146 ####[address] [address] Eosinophils/Leukocytes Auto (Bld) [Pure # fraction] 0.1 E9/L Normal 0.0-0.5 [facility] Comment on above: Order Comment: Order Added by Discern Expert. Performed By: #### 2 172178, 78152049, 3565304, 0937920, 21353251, 27743477, 96042184, 1677860 ####[address] [address] Lymphocytes/100 WBC (Bld) 11.3 % Low 14.0-50.0 [facility] Comment on above: Order Comment: Order Added by Discern Expert. Performed By: #### 2 231441, 27947808, 6560172, 0176915, 26797742, 38437897, 75425956, 5875671 ####[facility] [address] [place] [address] Lymphocytes/Leukocytes Auto (Bld) [Pure # fraction] 1.0 E9/L Normal 1.0-4.0 [facility] Comment on above: Order Comment: Order Added by Discern Expert. Performed By: #### 2 446702, 52697312, 9780947, 1115551, 30550920, 93390588, 87870787, 6295539 ####[address] [place] [address] Monocytes/100 WBC (Bld) 6.9 % Normal 4.0-14.0 [facility] Comment on above: Order Comment: Order Added by Discern Expert. Performed By: #### 2 311818, 41023410, 1387909, 0185115, 63723586, 07328833, 93281362, 6365304 ####[address] [address] Monocytes/Leukocytes Auto (Bld) [Pure # fraction] 0.6 E9/L Normal 0.2-1.0 [facility] Comment on above: Order Comment: Order Added by Discern Expert. Performed By: #### 2 822733, 11182751, 1305100, 3879137, 80162879, 37077574, 48465444, 3195042 ####[address] [place] [address] Neutrophils/100 WBC (Bld) 80.8 % High 36.0-75.0 [facility] Comment on above: Order Comment: Order Added by Discern Expert. Performed By: #### 2 521347, 45464785, 3966655, 7541264, 90147061, 27111916, 07145765, 1842081 ####[address] [place] [address] Neutrophils/Leukocytes Auto (Bld) [Pure # fraction] 7.1 E9/L Normal 2.0-7.5 [facility] Comment on above: Order Comment: Order Added by Discern Expert. Performed By: #### 2 164982, 50913074, 3162805, 8530500, 57480570, 43810920, 31039290, 8276339 ####[facility] [address] [place] [address] BMPon 09-08-2023 Creatinine [Mass/Vol] 1.2 mg/dL Normal 0.5-1.3 [facility] Comment on above: Performed By: #### 2 602458, 74190941, 7128051, 6581341, 12373429, 52838154, 38467395, 5123013 ####[facility] [address] [place] [address] Urea nitrogen [Mass/Vol] 26 mg/dL High 5-21 [facility] Comment on above: Performed By: #### 2 345055, 26250830, 2847952, 9576314, 26790615, 35733360, 31084738, 3927040 ####[facility] [address] [place] [address] Urea nitrogen/Creatinine [Mass ratio] 22 No Units High 10-20 [facility] Comment on above: Performed By: #### 2 124568, 72652889, 5583044, 4216746, 99292162, 01923151, 30915446, 4212783 ####[facility] [address] [place] [address] Anion gap [Moles/Vol] 13 mmol/L Normal 6-16 [facility] Comment on above: Performed By: #### 2 791391, 95141511, 0782672, 5756279, 21879626, 90277890, 39358707, 0306312 ####[facility] [address] [place] [address] Calcium [Mass/Vol] 9.9 mg/dL Normal 8.9-11.1 [facility] Comment on above: Performed By: #### 2 921104, 12006833, 6826459, 2131640, 99921842, 54757245, 03942666, 3100612 ####[facility] [address] [place] [address] Chloride [Moles/Vol] 99 mmol/L Low 101-111 [facility] Comment on above: Performed By: #### 2 788279, 95293601, 6011495, 7396288, 85572873, 06859917, 31353036, 8865710 ####[facility] [address] [place] [address] CO2 [Moles/Vol] 28 mmol/L Normal 21-31 [facility] Comment on above: Performed By: #### 2 231300, 92759123, 6486977, 5130264, 24654447, 42563802, 82955741, 7902692 ####[facility] [address] [place] [address] Glucose [Mass/Vol] 126 mg/dL Normal 55-199 [facility] Comment on above: Result Comment: If t his glucose result represents a fasting glucose, interpretation should refer to the following reference range: 55-99 mg/dL Performed By: #### 2 071341, 83743877, 1156009, 4347480, 06000997, 17038887, 80428617, 1596637 ####[facility] [address] [place] [address] Potassium [Moles/Vol] 4.0 mmol/L Normal 3.5-5.3 [facility] Comment on above: Performed By: #### 2 570048, 74940755, 3870276, 8229427, 13421565, 34569838, 75782641, 6922969 ####[facility] [address] [place] [address] Sodium [Moles/Vol] 136 mmol/L Normal 135-145 [facility] Comment on above: Performed By: #### 2 425015, 74615994, 2837090, 3645163, 00976902, 84358512, 38062103, 6067974 ####[facility] [address] [place] [address] BNPon 09-08-2023 Int Ctr BNP Pass Normal [facility] Comment on above: Performed By: #### 2 093163, 90437437, 1793701, 1758501, 53630034, 21300138, 95283886, 5687216 ####[facility] [address] [place] [address] Natriuretic peptide B (Bld) [Mass/Vol] 21 pg/mL Normal 5-80 [facility] Comment on above: Performed By: #### 2 392488, 05861775, 0456709, 5377812, 95679089, 82665780, 28027675, 1734941 ####[address] [address] CBC w/ Auto Diffon Erythrocyte distribution width (RBC) [Ratio] 15.1 % High 10.9-14.2 [facility] Comment on above: Performed By: #### 2 667542, 51186937, 8167441, 9264559, 93287261, 79154228, 72374627, 0768619 ####[facility] [address] [place] [address] Hematocrit (Bld) [Volume fraction] 38.8 % Normal 34.0-46.0 [facility] Comment on above: Performed By: #### 2 762803, 78265414, 3049971, 6191092, 39940008, 44416476, 69897853, 6904860 ####[facility] [address] [place] [address] Hemoglobin (Bld) [Mass/Vol] 13.0 g/dL Normal 12.0-16.0 [facility] Comment on above: Performed By: #### 2 240684, 86569076, 2284276, 5149810, 43904703, 14094032, 30786505, 7634800 ####[facility] [address] [place] [address] MCH (RBC) [Entitic mass] 29.4 pg Normal 27.0-34.0 [facility] Comment on above: Performed By: #### 2 590128, 74427753, 6166503, 8176096, 73355917, 27285522, 11849169, 2398748 ####[facility] [address] [place] [address] MCHC (RBC) [Mass/Vol] 33.5 g/dL Normal 31.4-36.0 [facility] Comment on above: Performed By: #### 2 422658, 88627005, 5949276, 1085423, 34843540, 45220195, 32018536, 7462008 ####[address] [address] MCV (RBC) [Entitic vol] 87.6 fL Normal 80.0-100.0 F [facility] Comment on above: Performed By: #### 2 325429, 23734365, 0592225, 7932751, 77812323, 47537989, 54784562, 1016545 ####[address] [address] Platelet mean volume (Bld) [Entitic vol] 10.7 fL Normal 6.4-10.8 [facility] Comment on above: Performed By: #### 2 764586, 82760650, 9419289, 0651725, 86030606, 41355676, 47373332, 6755426 ####[address] [address] Platelets (Bld) [#/Vol] 195.0 E9/L Normal 150.0-500.0 [facility] Comment on above: Performed By: #### 2 756014, 44573591, 6870814, 9264064, 94292237, 44185013, 60956995, 9340210 ####[facility] [address] [place] [address] RBC (Bld) [#/Vol] 4.4 E12/L Normal 4.3-5.9 [facility] Comment on above: Performed By: #### 2 685945, 52315484, 2527662, 2963508, 45667612, 95038713, 72883302, 5956866 ####[facility] [address] [place] [address] WBC corrected for nucl RBC Auto (Bld) [#/Vol] 8.8 E9/L Normal 4.0-11.0 [facility] Comment on above: Performed By: #### 2 825279, 84558197, 2758309, 7547101, 67014930, 45796536, 22046874, 6362369 ####[facility] [address] [place] [address] CHEMISTRYOrdered By: SYSTEM SYSTEM on 09-08-2023 Troponin [...] Sensitivity Troponin I Instructions For Use, Claude Boles, May 2018) Albumin [Mass/Vol] 3.8 g/dL Normal [...] 52 mL/min/1.73 m2 Low >=59mL/min/1 .73 m2 [facility] Sensitivity Troponin I Instructions For Use, Claude Boles, May 2018) Urea nitrogen [Mass/Vol] 26 mg/dL High 5 - 21 mg/dL [facility] nitrogen/Creatinine [Mass ratio] 22 mg/mg High 10 - 20 [facility] Remisol CHEMISTRYOrdered By: Yanet Davis on 09-08-2023 Natriuretic peptide B (Bld) [Mass/Vol] 21 pg/mL Normal 5 - 80 pg/mL [facility] HemeManSS COAGULATIONOrdered By: Dov Patel on 09-08-2023 [...] 370 Contrast amount in ml's: 68 Normal [facility] Consent for Treatmenton Consent for Treatment [id number]# 1.00TIFF Normal [facility] Discharge Instructionson Discharge Instructions [id number]# 1.00TIFF Normal [facility] ED Clinical Summaryon 2022 ED Clinical Summary [place] [id number] ED Clinical Summary Person Information Name: ALIYA MOORE Hilary/[facility] Age: 57 Years : 1965 Sex: Female Language: Malaysian PCP: BREA JJ CNP Marital Status: Visit [...] 20:29:11 09/08/2023 20:29:11 09/08/2023 20:29:11 AD[address]: [address] [address] [address] [facility] [id number] PHYS DOC NOTES: MEDICAL INFORMATION: Prescriptions Given: [...] day. fluticasone nasal (fluticasone Nasal 0.05 mg/inh Cataract) 2 Sprays Nasal Inhalation every day. each [...] Mouth every day. potassium chloride (Potassium Chloride (Vgi-Sgdw-Sar 10) 10 mEq oral tablet, extended release) [...] With: Address: When: BREA JJ [address] [place], [place] [phone] Business (1) In 3 days DIAGNOSIS: Acute chest pain Normal [facility] ED Note-Physicianon 09-08-20 ED Note-Physician [...] precautions. Patient was discharged stable condition. Normal [facility] Comment on above: Result [...] History O (more content not included)... Normal [facility] Comment on above: Result [...] these instructions at home: Medicines ? Take npkh-rvg-pcbmcky and prescription medicines only as told by [...] by your (more content not included)... Normal [facility] ED Patient Summaryon 023 ED Patient Summary [address] [address] Patient Discharge Instructions Person Information Name: ALIYA MOORE Age: 57 Years Arrival Date: 09/08/2023 16:32:21 Discharge Diagnosis: Acute chest pain Primary Care Physician: BREA JJ CNP Provider Information Primary Provider: Ramses Hair DO Advanced Engineer Fishing Vessel:None The exam and treatment you received in the Emergency Department were for an urgent problem and are not intended as complete care. It is important that you follow up with a doctor, nurse practitioner, or physician?s dental chairside assistant for ongoing care. If your symptoms [...] Address: When: BREA JJ [address] [place], [place] [phone] Business (1) In 3 days In the event that this physician does not participate in your insurance network, please consult with your insurance company to find a nearby participating provider. Patient Education Materials: Nonspecific Chest Pain, Adult A MESSAGE TO ALL PATIENTS REGARDING OPIOIDS PRESCRIPTION OPIOIDS: WHAT YOU NEED TO KNOW Prescription opioids can be used to help relieve zzdkkmlg-ox-vcprak pain and are often prescribed following a [...] be struggling with addiction, tell your health point of care technician and ask for guidance or call [facility] National Helpline at 9-659-092-GFZD. v Source: [place] (more content not included)... Normal [facility] EMS Documentationon 09-08-20 EMS Documentation Please click on link to see report Normal [facility] Comment on above: Result Comment: Miss duncan Attachment - attachment exceeds size limitation Continuous_Complete_1.pdf Can be viewed in source system HEMATOLOGYOrdered By: SYSTEM SYSTEM on 09-08-2023 Basophils/100 WBC (Bld) 0.2 % Normal 0.0 - 2.0 % PHYSICIANS [...] Bilirubin.indirect [Mass or moles/Vol] UTC Abnormal 0.1-0.9 [facility] Comment on above: Result Comment: Resu lt verified by Discern Rule. Performed result UT (Unable to Calculate) was sent as an Alpha code due the inability to calculate a valid numeric value. Performed By: #### 2 582501, 23136800, 8047816, 9201073, 13022855, 96705293, 31355363, 7088797 ####[facility] [address] [place] [address] Albumin [Mass/Vol] 3.8 g/dL Normal 3.3-5.0 [facility] Comment on above: Performed By: #### 2 415077, 82352196, 9648472, 0519748, 74970809, 78814117, 93517899, 6238739 ####[facility] [address] [place] [address] Albumin/Globulin (S) [Mass conc ratio] 0.8 Low 1.1-2.2 [facility] Comment on above: Performed By: #### 2 514200, 45276400, 4340828, 2797998, 67147800, 45842428, 84445266, 1614444 ####[facility] [address] [place] [address] ALP [Catalytic activity/Vol] 68 Int._Unit/L Normal 21-98 [facility] Comment on above: Performed By: #### 2 397025, 03844864, 2301704, 6429986, 74028717, 92046579, 68112836, 9694298 ####[facility] [address] [place] [address] ALT No additional P-5'-P [Catalytic activity/Vol] 18 Int._Unit/L Normal 6-46 [facility] Comment on above: Performed By: #### 2 827432, 55848677, 0711536, 9360338, 91902055, 37071295, 91528036, 2827942 ####[facility] [address] [place] [address] AST [Catalytic activity/Vol] 20 Int._Unit/L Normal 5-43 [facility] Comment on above: Performed By: #### 2 132997, 06138676, 7399163, 8418347, 64276659, 68011475, 57727043, 0052902 ####[address] [place] [address] Bilirubin [Mass/Vol] 0.4 mg/dL Normal 0.0-1.1 [facility] Comment on above: Performed By: #### 2 785948, 77544409, 8274876, 5268651, 88594893, 42751169, 02418503, 5934176 ####[facility] [address] [place] [address] Globulin (S) [Mass/Vol] 4.5 g/dL High 1.4-4.0 [facility] Comment on above: Performed By: #### 2 106305, 89676542, 2734950, 6206822, 78961103, 44843726, 28845579, 3499904 ####[facility] [address] [place] [address] Protein [Mass/Vol] 8.3 g/dL High 6.0-7.8 [facility] Comment on above: Performed By: #### 2 446633, 39336109, 7155993, 2008179, 15539225, 21777742, 44100794, 1577585 ####[facility] [address] [place] [address] Bilirubin.direct [Mass/Vol] mg/dL Normal 0.1-0.4 [facility] Comment on above: Performed By: #### 2 479630, 84392715, 2712640, 1451289, 95336263, 58395461, 33630148, 9993683 ####[facility] [address] [place] [address] Monitor Recordon 09-08-2023 Monitor Record [id number]# 1.00TIFF Normal [facility] Monitor Record [id number]# 1.00TIFF Normal [facility] PT & PTTon 09-08-2023 aPTT Coag (PPP) [Time] 37.3 second(s) High 25.1-36.5 [facility] Comment on above: Result [...] - 109.0 sec. Performed By: #### 2 219984, 59669935, 0886150, 3925172, 75303333, 46613067, 89636658, 2170172 ####[facility] [address] [place] [address] INR Coag (PPP) [Relative time] 1.2 {INR} Invalid Interpretation Code [facility] Comment on above: Result Comment: INR results are specifically intended to assess patients stabilized on long-term Anticoagulation therapy suggested INR?s ?Less Intensive Anticoagulation? 2.0 ? 3.0 Conventional Range 3.0 ? 4.5 Performed By: #### 2 [id number], [id number], [id number], [id number], [id number], [id number], [id number], [id number] ####[facility] [address] [place] [address] PT Coag (PPP) [Time] 13.7 second(s) High 9.4-12.5 [facility] Comment on above: Result [...] no normal ranges. Performed By: #### 2 [id number], [id number], [id number], [id number], [id number], [id number], [id number], [id number] ####[facility] [address] [place] [address] Troponin 0 Hr.on 09-08-2023 Troponin I.cardiac [Mass/Vol] 4.70 pg/mL Low 10.10-27.10 [facility] Comment on above: Result Comment: The 95% CI (Confidence Interval) PPV (Positive Predictive Value) for myocardial infarction in females is 38 pg/mL, in males 51 pg/mL. The results should be used in conjunction with clinical conditions of myocardial infarction. (Access High Sensitivity Troponin I Instructions For Use, Claude Boles, May 2018) Performed By: #### 2 [id number], [id number], [id number], [id number], [id number], [id number], [id number], [id number] ####[facility] [address] [place] [address] Troponin 3 Hr.on 09-08-2023 Troponin I.cardiac [Mass/Vol] 4.20 pg/mL Low 10.10-27.10 [facility] Comment on above: Result Comment: The 95% CI (Confidence Interval) PPV (Positive Predictive Value) for myocardial infarction in females is 38 pg/mL, in males 51 pg/mL. The results should be used in conjunction with clinical conditions of myocardial infarction. (Access High Sensitivity Troponin I Instructions For Use, Claude Raulito, May 2018) Performed By: #### 1 [id number] ####[facility] [address] [place] [address] eGFRon 09-08-2023 GFR/1.73 sq M.predicted among non-blacks MDRD (S/P/Bld) [Vol rate/Area] 52 mL/min/1.73 m2 Low >=59 [facility] Comment on above: Order Comment: Order added by Discern Expert. Result Comment: [employer] Supervisor nita kidney disease could be indicated at eGFR's of less than 60 mL/min/1.73m2. Kidney failure is indicated at less than 15 mL/min/1.73m2. Performed By: #### 2 [id number], [id number], [id number], [id number], [id number], [id number], [id number], [id number] ####[facility] [address] [place] [address] CHEMISTRYOrdered By: Lab ROP User on 06-17-2023 Glucose [Mass/Vol] 109 mg/dL High 55 - 99 mg/dL [facility] [place] Subsection Comment on above: Result Comment: Rafaela VELASQUEZ POC Device SN [id number] Invalid Interpretation Code FT POC Subsection POC User ID [id number] Invalid Interpretation Code [facility] P[facility] Subsection POC Username BRENDA DIAZ Invalid Interpretation Code [facility] P[facility] Subsection Glucose [Mass/Vol] 133 mg/dL High 55 - 99 mg/dL [facility] Subsection Comment on above: Result Comment: Rafaela garzon RN/ POC Device SN [id number] Invalid Interpretation Code [facility] POC Subsection POC User ID [id number] Invalid Interpretation Code [facility] P[facility] Subsection POC Username FAVIOLA MURO Invalid Interpretation Code [facility] P[facility] Subsection Glucose [Mass/Vol] 109 mg/dL High 55 - 99 mg/dL [facility] Subsection Comment on above: Result Comment: Rafaela garzon RN/MD POC Device SN [id number] Invalid Interpretation Code FT POC Subsection POC User ID [id number] Invalid Interpretation Code [facility] POC Subsection POC Username BRENDA DIAZ Invalid Interpretation Code [facility] POC Subsection CHEMISTRYOrdered By: Kimberley Freeman on 06-17-2023 HbA1c (Bld) [Mass fraction] 5.7 % Normal <=5.9% [facility] ChemAutoSS CHEMISTRYOrdered By: SYSTEM SYSTEM on 06-17-2023 Troponin I.cardiac [Mass/Vol] 5.20 pg/mL Low 10.10 - 27.10 pg/mL [facility] Remisol CHEMISTRYOrdered By: SYSTEM SYSTEM on 06-16-2023 Troponin I.cardiac [Mass/Vol] 5.50 pg/mL Low 10.10 - 27.10 pg/mL [facility] Remisol Troponin I.cardiac [Mass/Vol] 5.30 pg/mL Low 10.10 - 27.10 pg/mL [facility] Remisol Anion gap [Moles/Vol] 12 mmol/L Normal 6 - 16 mEq/L [facility] Remisol Calcium [Mass/Vol] 9.9 mg/dL Normal 8.9 - 11. 1 mg/dL [facility] Remisol Chloride [Moles/Vol] 101 mmol/L Normal 101 - 1 11 mmol/L [facility] Remisol CO2 [Moles/Vol] 27 mmol/L Normal 21 - 31 mmol/L [facility] Remisol Creatinine [Mass/Vol] 0.8 mg/dL Normal 0.5 - 1.3 mg/dL [facility] Remisol GFR/1.73 sq M.predicted among non-blacks MDRD (S/P/Bld) [Vol rate/Area] 85 mL/min/1.73 m2 Normal >=59mL/min/1 .73 m2 [facility] Chem S Glucose [Mass/Vol] 129 mg/dL Normal 55 - 199 mg/dL [facility] Remisol Potassium [Moles/Vol] 3.9 mmol/L Normal 3.5 [...] Normal 4.0 - 11.0 E9/L [facility] HemeAutoSS BNPon 02-23-2023 Natriuretic peptide B (Bld) [Mass/Vol] 114.0 pg/mL Normal <=900.0 [facility] Comment on above: Performed By: #### C MP, BNP, HSTROPN #### [facility] [address] [place] [address] Dr. Xiomy Lennon CBC AUTO DIFFon 02-23-2023 BASO # 0.0 103/ul Normal 0.0-0.[address] [facility] Comment on above: Performed By: #### P T, PTT #### [facility] [address] [place] [address] Dr. Xiomy Lennon Basophils/100 WBC (Bld) 0.2 % Normal 0.2-2.0 [facility] Comment on above: Performed By: #### P T, PTT #### [facility] [address] [place] [address] Dr. Xiomy Lennon EO # 0.2 103/ul Normal 0.0-0.[address] [facility] Comment on above: Performed By: #### P T, PTT #### [facility] [address] [place] [address] Dr. Xiomy Lennon Eosinophils/100 WBC (Bld) 1.8 % Normal 0.9-7.[address] [facility] Comment on above: Performed By: #### P T, PTT #### [facility] [address] [place] [address] Dr. Xiomy Lennon Erythrocyte distribution width (RBC) [Ratio] 15.4 % Critically high 11.0-15.[address] [facility] Comment on above: Performed By: #### P T, PTT #### [facility] [address] [place] [address] Dr. Xiomy Lennon Hematocrit (Bld) [Volume fraction] 37.6 % Normal 36.0-48.[address] [facility] Comment on above: Performed By: #### P T, PTT #### [facility] [address] [place] [address] Dr. Xiomy Lennno Hemoglobin (Bld) [Mass/Vol] 12.2 g/dL Normal 12.0-16.[address] [facility] Comment on above: Performed By: #### P T, PTT #### [facility] [address] [place] [address] Dr. Xiomy Lennon IG # 0.02 10e3/ul Normal 0.00-0.[address] [facility] Comment on above: Performed By: #### P T, PTT #### [facility] [address] [address] [address] Xiomy Lennon IG % 0.2 % Normal 0.0-0.[address] [facility] Comment on above: Performed By: #### P T, PTT #### [facility] [address] [place] [address] Dr. Xiomy Lennon LYMPH # 1.7 103/ul Normal 1.2-3.[address] [facility] Comment on above: Performed By: #### P T, PTT #### [facility] [address] [place] [address] Dr. Xiomy Lennon Lymphocytes/100 WBC (Bld) 17.0 % Critically low 20.5-60.[address] [facility] Comment on above: Performed By: #### P T, PTT #### [facility] [address] [place] [address] Dr. Xiomy Lennon MANUAL DIFF REQ NO Normal [facility] Comment on above: Performed By: #### P T, PTT #### [facility] [address] [place] [address] Dr. Xiomy Lennon MCH (RBC) [Entitic mass] 28.6 pg Normal 26.7-34.[address] [facility] Comment on above: Performed By: #### P T, PTT #### [facility] [address] [place] [address] Dr. Xiomy Lennon MCHC (RBC) [Mass/Vol] 32.4 g/dL Normal 29.9-35.[address] [facility] Comment on above: Performed By: #### P T, PTT #### [facility] [address] [place] [address] Dr. Xiomy Lennon MCV (RBC) [Entitic vol] 88.3 fL Normal 81.0-99.0 [facility] Comment on above: Performed By: #### P T, PTT #### [facility] [address] [place] [address] Dr. Xiomy Lennon MONO # 0.7 103/ul Normal 0.3-0.[address] [facility] Comment on above: Performed By: #### P T, PTT #### [facility] [address] [place] [address] Dr. Xiomy Lennon Monocytes/100 WBC (Bld) 7.3 % Normal 1.7-12.0 [facility] Comment on above: Performed By: #### P T, PTT #### [facility] [address] [place] [address] Dr. Xiomy Lennon NEUT # 7.2 103/ul Critically high 1.4-6.5 [facility] Comment on above: Performed By: #### P T, PTT #### [facility] [address] [place] [address] Dr. Xiomy Lennon Neutrophils/100 WBC (Bld) 73.5 % Normal 43.0-75.[address] [facility] Comment on above: Performed By: #### P T, PTT #### [facility] [address] [place] [address] Dr. Xiomy Lennon Platelet mean volume (Bld) [Entitic vol] 11.5 fL Normal 9.5-13.[address] [facility] Comment on above: Performed By: #### P T, PTT #### [facility] [address] [place] [address] Dr. Xiomy Lennon PLT 197 103/ul Normal 150-[address] [facility] Comment on above: Performed By: #### P T, PTT #### [facility] [address] [place] [address] Dr. Xiomy Lennon RBC 4.26 106/ul Normal 4.20-5.40 [facility] Comment on above: Performed By: #### P T, PTT #### [facility] [address] [place] [address] Dr. Xiomy Lennon WBC 9.7 103/ul Normal 4.0-11.[address] [facility] Comment on above: Performed By: #### P T, PTT #### [facility] [address] [place] [address] Dr. Xiomy Lennon LACTATE/LACTIC ACIDon 2022 Lactate [Moles/Vol] 0.7 mmol/L Normal 0.4-2.0 [facility] Comment on above: Performed By: #### P T, PTT #### [facility] [address] [place] [address] Dr. Xiomy Lennon PROF 14(COMP METB)on 023 Albumin [Mass/Vol] 3.3 g/dL Critically low 3.4-5.0 [facility] Comment on above: Performed By: #### C MP, BNP, HSTROPN #### [facility] [address] [place] [address] Dr. Xiomy Lennon Albumin/Globulin [Mass ratio] 0.7 {ratio} Normal [facility] Comment on above: Performed By: #### C MP, BNP, HSTROPN #### [facility] [address] [place] [address] Dr. Xiomy Lennon ALP [Catalytic activity/Vol] 89 U/L Normal 46-[address] [facility] Comment on above: Performed By: #### C MP, BNP, HSTROPN #### [facility] [address] [place] [address] Dr. Xiomy Lennon ALT [Catalytic activity/Vol] 34 U/L Normal 14-[address] [facility] Comment on above: Performed By: #### C MP, BNP, HSTROPN #### [facility] [address] [place] [address] Dr. Xiomy Lennon Anion gap [Moles/Vol] 10.5 mmol/L Normal [facility] Comment on above: Performed By: #### C MP, BNP, HSTROPN #### [facility] [address] [place] [address] Dr. Xiomy Lennon AST [Catalytic activity/Vol] 22 U/L Normal 15-[address] [facility] Comment on above: Performed By: #### C MP, BNP, HSTROPN #### [facility] [address] [place] [address] Dr. Xiomy Lennon Bilirubin [Mass/Vol] 0.3 mg/dL Normal 0.2-1.[address] [facility] Comment on above: Performed By: #### C MP, BNP, HSTROPN #### [facility] [address] [place] [address] Dr. Xiomy Lennon Calcium [Mass/Vol] 9.4 mg/dL Normal 8.5-10.1 [facility] Comment on above: Performed By: #### C MP, BNP, HSTROPN #### [facility] [address] [address] [address] Xiomy Lennon Chloride [Moles/Vol] 99 mmol/L Normal 98-[address] [facility] Comment on above: Performed By: #### C MP, BNP, HSTROPN #### [facility] [address] [address] [address] Xiomy Lenonn CO2 [Moles/Vol] 31.6 mmol/L Normal 21.0-32.0 [facility] Comment on above: Performed By: #### C MP, BNP, HSTROPN #### [facility] [address] [place] [address] Dr. Xiomy Lennon Creatinine [Mass/Vol] 0.86 mg/dL Normal 0.55-1.[address] [facility] Comment on above: Performed By: #### C MP, BNP, HSTROPN #### [facility] [address] [address] [address] Xiomy Lennon EGFR-AF KOSOVAN >60 Normal >=60 [facility] Comment on above: Performed By: #### C MP, BNP, HSTROPN #### [facility] [address] [place] [address] Dr. Xiomy Lennon EGFR-NON AF KOSOVAN >60 Normal >=[address] [facility] Comment on above: Performed By: #### C MP, BNP, HSTROPN #### [facility] [address] [address] [address] Xiomy Lennon Globulin (S) [Mass/Vol] 4.6 g/dL Normal [facility] Comment on above: Performed By: #### C MP, BNP, HSTROPN #### [facility] [address] [address] [address] Xiomy Lennon Glucose [Mass/Vol] 133 mg/dL Critically high 74-106 [facility] Comment on above: Performed By: #### C MP, BNP, HSTROPN #### [facility] [address] [place] [address] Dr. Xiomy Lennon Potassium [Moles/Vol] 4.1 mmol/L Normal 3.5-5.1 [facility] Comment on above: Performed By: #### C MP, BNP, HSTROPN #### [facility] [address] [place] [address] Dr. Xiomy Lennon Protein [Mass/Vol] 7.9 g/dL Normal 6.4-8.2 [facility] Comment on above: Performed By: #### C MP, BNP, HSTROPN #### [facility] [address] [place] [address] Dr. Xiomy Lennon Sodium [Moles/Vol] 137 mmol/L Normal 136-145 [facility] Comment on above: Performed By: #### C MP, BNP, HSTROPN #### [facility] [address] [place] [address] Dr. Xiomy Lennon Urea nitrogen [Mass/Vol] 16.0 mg/dL Normal 7.0-18.[address] [facility] Comment on above: Performed By: #### C MP, BNP, HSTROPN #### [facility] [address] [place] [address] Dr. Xiomy Lennon Urea nitrogen/Creatinine [Mass ratio] 18.6 mg/mg Normal [facility] Comment on above: Performed By: #### C MP, BNP, HSTROPN #### [facility] [address] [place] [address] Dr. Xiomy Lennon PROTIMEon 02-23-2023 INR Coag (PPP) [Relative time] 0.95 {INR} Normal [facility] Comment on above: Performed By: #### P TT, PT #### [facility] [address] [place] [address] Dr. Xiomy Lennon INR GUIDELINES SEE BELOW Normal [facility] Comment on above: Result Comment: NIALL RED INR: 2.0 - 3.0 CONDITIONS NOT LISTED BELOW 2.5 - 3.5 FOR PROSTHETIC HEART VALVE REPLACEMENT 2.5 - 3.5 RECURRENT THROMBOSIS Performed By: #### P TT, PT #### [facility] [address] [place] [address] Dr. Xiomy Lennon PT Coag (PPP) [Time] 10.1 s Normal 9.0-11.[address] [facility] Comment on above: Performed By: #### P TT, PT #### [facility] [address] [place] [address] Dr. Xiomy Lennon PTTon 02-23-2023 aPTT Coag (Bld) [Time] 27.2 s Normal 22.3-36.2 [facility] Comment on above: Performed By: #### P TT, PT #### [facility] [address] [place] [address] Dr. Xiomy Lennon TROPONIN, HIGH SENSITIVITYon 02-23-2023 HSTROP 6.2 pg/mL Normal 4.0-51.[address] [facility] Comment on above: Result Comment: CUT- OFF POINTS HAVE BEEN ESTABLISHED BASED ON THE FOURTH UNIVERSAL DEFINITIONS OF MYOCARDIAL INFARCTION. THE UPPER REFERENCE LIMIT (URL) OF TROPONIN, DEFINED THE 99TH PERCENTILE OF cTnI DISTRIBUTION IN A REFERENCE POPULATION, HAS BEEN CONFIRMED THE DECISION THRESHOLD FOR AK DIAGNOSIS. Performed By: #### C MP, BNP, HSTROPN #### [facility] [address] [place] [address] Dr. Xiomy Lennon XR CHEST 1 Von [...] JUSTINE MARES Date: 2023-02-23 19:05 Normal [facility] HEMOGLOBINon 02-01-2023 Hemoglobin (Bld) [Mass/Vol] 13.0 g/dL Normal 12.0-16.[address] [facility] Comment on above: Performed By: #### H GB #### [facility] [address] [address] [address] Xiomy Lennon PULMONARY FUNCTION TESTon PULMONARY [...] ambulation/activity. 3. Clinical correlation required. Normal [facility] CT LUNG CANCER SCREENINGon 0 [...] in 12 months. Electronically authenticated by: MIGUEL ROSA M Date: 2023-01-12 14:10 Normal [facility] GLYCOHEMOGLOBIN A1Con 2022 ADA RECOMMENDATION SEE BELOW Normal [facility] Comment on above: Result Comment: ADA RECOMMENDED LIMIT 4.0 - 6.0 ADA THERAPEUTIC TARGET < 7.0 ACTION SUGGESTED > 7.0 Performed By: #### A 1C #### [facility] [address] [place] [address] Dr. Xiomy Lennon Glucose [Mass/Vol] 111 mg/dL Normal [facility] Comment on above: Performed By: #### A 1C #### [facility] [address] [place] [address] Dr. Xiomy Lennon HbA1c (Bld) [Mass fraction] 5.5 % Normal 4.5-6.[address] [facility] Comment on above: Performed By: #### A 1C #### [facility] [address] [place] [address] Dr. Xiomy Lennon PROF CHEM 8 (BAS METB)on Anion gap [Moles/Vol] 12.0 mmol/L Normal [facility] Comment on above: Performed By: #### P T, PTT #### [facility] [address] [place] [address] Dr. Xiomy Lennon Calcium [Mass/Vol] 10.0 mg/dL Normal 8.5-10.1 [facility] Comment on above: Performed By: #### P T, PTT #### [facility] [address] [place] [address] Dr. Xiomy Lennon Chloride [Moles/Vol] 102 mmol/L Normal 98-107 [facility] Comment on above: Performed By: #### P T, PTT #### [facility] [address] [place] [address] Dr. Xiomy Lennon CO2 [Moles/Vol] 30.4 mmol/L Normal 21.0-32.0 [facility] Comment on above: Performed By: #### P T, PTT #### [facility] [address] [place] [address] Dr. Xiomy Lennon Creatinine [Mass/Vol] 0.79 mg/dL Normal 0.55-1.[address] [facility] Comment on above: Performed By: #### P T, PTT #### [facility] [address] [address] [address] Xiomy Lennon EGFR-AF KOSOVAN >60 Normal >=60 [facility] Comment on above: Performed By: #### P T, PTT #### [facility] [address] [address] [address] Xiomy Lennon EGFR-NON AF KOSOVAN >60 Normal >=[address] [facility] Comment on above: Performed By: #### P T, PTT #### [facility] [address] [place] [address] Dr. Xiomy Lennon Glucose [Mass/Vol] 147 mg/dL Critically high 74-106 [facility] Comment on above: Performed By: #### P T, PTT #### [facility] [address] [place] [address] Dr. Xiomy Lennon Potassium [Moles/Vol] 4.4 mmol/L Normal 3.5-5.[address] [facility] Comment on above: Performed By: #### P T, PTT #### [facility] [address] [place] [address] Dr. Xiomy Lennon Sodium [Moles/Vol] 140 mmol/L Normal 136-145 [facility] Comment on above: Performed By: #### P T, PTT #### [facility] [address] [place] [address] Dr. Xiomy Lennon Urea nitrogen [Mass/Vol] 18.0 mg/dL Normal 7.0-18.[address] [facility] Comment on above: Performed By: #### P T, PTT #### [facility] [address] [place] [address] Dr. Xiomy Lennon Urea nitrogen/Creatinine [Mass ratio] 22.8 mg/mg Normal [facility] Comment on above: Performed By: #### P T, PTT #### [facility] [address] [place] [address] Dr. Xiomy Lennon THEOPHYLLINEon 11-04-2022 THEOPHYLLINE 2.1 ug/mL Critically low 10.0-20.0 [facility] Comment on above: Performed By: #### T HERBERT #### [facility] [address] [address] [address] Xiomy Lennon GLYCOHEMOGLOBIN A1Con 2021 ADA RECOMMENDATION SEE BELOW Normal [facility] Comment on above: Result Comment: ADA RECOMMENDED LIMIT 4.0 - 6.0 ADA THERAPEUTIC TARGET < 7.0 ACTION SUGGESTED > 7.0 Performed By: #### P T, PTT #### [facility] [address] [address] [address] Xiomy Lennon Glucose [Mass/Vol] 120 mg/dL Normal [facility] Comment on above: Performed By: #### P T, PTT #### [facility] [address] [place] [address] Dr. Xiomy Lennon HbA1c (Bld) [Mass fraction] 5.8 % Normal 4.5-6.[address] [facility] Comment on above: Performed By: #### P T, PTT #### [facility] [facility] [address] [place] [address] Dr. Xiomy Lennon LIPID PROFILEon 07-28-2022 CHOL-HDL RATIO NORM SEE BELOW Normal [facility] Comment on above: Result Comment: 3.3 - 4.4 LOW RISK 4.4 - 7.1 AVERAGE RISK 7.1 - 11.0 MODERATE RISK >11.0 HIGH RISK Performed By: #### P T, PTT #### [facility] [address] [address] [address] Xiomy Lennon Cholesterol [Mass/Vol] 135 mg/dL Normal <=200 Th [facility] Comment on above: Performed By: #### P T, PTT #### [facility] [address] [place] [address] Dr. Xiomy Lennon Cholesterol in HDL [Mass/Vol] 77 mg/dL Critically high 40-[address] [facility] Comment on above: Performed By: #### P T, PTT #### [facility] [address] [address] [address] Xiomy Lennon Cholesterol in LDL [Mass/Vol] 44.6 mg/dL Normal [facility] Comment on above: Performed By: #### P T, PTT #### [facility] [address] [address] [address] Xiomy Lennon Cholesterol.total/Marylin sterol in HDL [Mass ratio] 1.8 {ratio} Normal [facility] Comment on above: Performed By: #### P T, PTT #### [facility] [address] [address] [address] Xiomy Lennon HDL NORMAL > or = 60 mg/dl - LO W CARDIOVASCULAR RISK <40 mg/dl - HIGH CARDIOVASCULAR RISK Normal [facility] Comment on above: Performed By: #### P T, PTT #### [facility] [address] [address] [address] Xiomy Lennon LDL CALC NORMAL SEE BELOW Normal [facility] Comment on above: Result Comment: <100 mg/dl OPTIMAL 100 - 129 mg/dl NEAR OR ABOVE OPTIMAL 130 - 159 mg/dl BORDERLINE HIGH 160 - 189 mg/dl HIGH >190 mg/dl VERY HIGH Performed By: #### P T, PTT #### [facility] [address] [address] [address] Xiomy Lennon Triglyceride [Mass/Vol] 67 mg/dL Normal <=150 T [facility] Comment on above: Performed By: #### P T, PTT #### [facility] [address] [place] [address] Dr. Xiomy Lennon VLDL CALC 13.4 mg/dL Normal [facility] Comment on above: Performed By: #### P T, PTT #### [facility] [address] [address] [address] Xiomy Lennon PROF CHEM 8 (BAS METB)on Anion gap [Moles/Vol] 8.9 mmol/L Normal [facility] Comment on above: Performed By: #### P T, PTT #### [facility] [address] [address] [address] Xiomy Lennon Calcium [Mass/Vol] 9.7 mg/dL Normal 8.5-10.1 [facility] Comment on above: Performed By: #### P T, PTT #### [facility] [address] [address] [address] Xiomy Lennon Chloride [Moles/Vol] 99 mmol/L Normal 98-[address] [facility] Comment on above: Performed By: #### P T, PTT #### [facility] [address] [address] [address] Xiomy Lennon CO2 [Moles/Vol] 32.0 mmol/L Normal 21.0-32.0 [facility] Comment on above: Performed By: #### P T, PTT #### [facility] [address] [address] [address] Xiomy Lennon Creatinine [Mass/Vol] 0.78 mg/dL Normal 0.55-1.[address] [facility] Comment on above: Performed By: #### P T, PTT #### [facility] [address] [address] [address] Xiomy Lennon EGFR-AF KOSOVAN >60 Normal >=60 [facility] Comment on above: Performed By: #### P T, PTT #### [facility] [address] [address] [address] Xiomy Lennon EGFR-NON AF KOSOVAN >60 Normal >=[address] [facility] Comment on above: Performed By: #### P T, PTT #### [facility] [address] [address] [address] Xiomy Lennon Glucose [Mass/Vol] 111 mg/dL Critically high 74-106 [facility] Comment on above: Performed By: #### P T, PTT #### [facility] [address] [address] [address] Xiomy Lennon Potassium [Moles/Vol] 3.9 mmol/L Normal 3.5-5.[address] [facility] Comment on above: Performed By: #### P T, PTT #### [facility] [address] [address] [address] Xiomy Lennon Sodium [Moles/Vol] 136 mmol/L Normal 136-145 [facility] Comment on above: Performed By: #### P T, PTT #### [facility] [address], [place] [address] Dr. Xiomy Lennon Urea nitrogen [Mass/Vol] 10.0 mg/dL Normal 7.0-18.[address] [facility] Comment on above: Performed By: #### P T, PTT #### [facility] [address], [place] [address] Dr. Xiomy Lennon Urea nitrogen/Creatinine [Mass ratio] 12.8 mg/mg Normal [facility] Comment on above: Performed By: #### P T, PTT #### [facility] [address], [place] [address] Dr. Xiomy Lennon MG MAMM SCREEN 3D EMY CADon 04-30-2022 MG MAMM SCREEN 3D EMY CAD Patient: ALIYA MOORE Exam Date: 04/30/2022 : 1965 Gender:F Ordering : ENRIQUE BREAAdriana [facility] Admission #: [id number] Family : Order #: [id number] CLICK HERE TO VIEW EXAM RADIOLOGY REPORT [...] Family Cancers None LOCATION: The [facility] BREAST COMPOSITION: Almost entirely fatty. [...] MD on 04/30/2022 at 10:06 Normal [facility] CBC AUTO DIFFon 03-26-2022 BASO # 0.0 103/ul Normal 0.0-0.[address] [facility] Comment on above: Performed By: #### P T, PTT #### [facility] [address] [place] [address] Dr. Xiomy Lennon Basophils/100 WBC (Bld) 0.2 % Normal 0.2-2.0 [facility] Comment on above: Performed By: #### P T, PTT #### [facility] [address] [place] [address] Dr. Xiomy Lennon EO # 0.2 103/ul Normal 0.0-0.[address] [facility] Comment on above: Performed By: #### P T, PTT #### [facility] [address] [place] [address] Dr. Xiomy Lennon Eosinophils/100 WBC (Bld) 1.7 % Normal 0.9-7.[address] [facility] Comment on above: Performed By: #### P T, PTT #### [facility] [address] [place] [address] Dr. Xiomy Lennon Erythrocyte distribution width (RBC) [Ratio] 15.6 % Critically high 11.0-15.[address] [facility] Comment on above: Performed By: #### P T, PTT #### [facility] [address] [place] [address] Dr. Xiomy Lennon Hematocrit (Bld) [Volume fraction] 43.4 % Normal 36.0-48.[address] [facility] Comment on above: Performed By: #### P T, PTT #### [facility] [address] [place] [address] Dr. Xiomy Lennon Hemoglobin (Bld) [Mass/Vol] 14.0 g/dL Normal 12.0-16.[address] [facility] Comment on above: Performed By: #### P T, PTT #### [facility] [address] [place] [address] Dr. Xiomy Lennon IG # 0.04 10e3/ul Critically high 0.00-0.03 [facility] Comment on above: Performed By: #### P T, PTT #### [facility] [address] [place] [address] Dr. Xiomy Lennon IG % 0.4 % Normal 0.0-0.[address] [facility] Comment on above: Performed By: #### P T, PTT #### [facility] [address] [place] [address] Dr. Xiomy Lennon LYMPH # 1.2 103/ul Normal 1.2-3.[address] [facility] Comment on above: Performed By: #### P T, PTT #### [facility] [address] [place] [address] Dr. Xiomy Lennon Lymphocytes/100 WBC (Bld) 11.4 % Critically low 20.5-60.[address] [facility] Comment on above: Performed By: #### P T, PTT #### [facility] [address] [place] [address] Dr. Xiomy Lennon MANUAL DIFF REQ NO Normal [facility] Comment on above: Performed By: #### P T, PTT #### [facility] [address] [place] [address] Dr. Xiomy Lenonn MCH (RBC) [Entitic mass] 29.7 pg Normal 26.7-34.[address] [facility] Comment on above: Performed By: #### P T, PTT #### [facility] [address] [place] [address] Dr. Xiomy Lennon MCHC (RBC) [Mass/Vol] 32.3 g/dL Normal 29.9-35.[address] [facility] Comment on above: Performed By: #### P T, PTT #### [facility] [address] [place] [address] Dr. Xiomy Lennon MCV (RBC) [Entitic vol] 92.1 fL Normal 81.0-99.0 [facility] Comment on above: Performed By: #### P T, PTT #### [facility] [address] [place] [address] Dr. Xiomy Lennon MONO # 0.8 103/ul Normal 0.3-0.[address] [facility] Comment on above: Performed By: #### P T, PTT #### [facility] [address] [place] [address] Dr. Xiomy Lennon Monocytes/100 WBC (Bld) 7.9 % Normal 1.7-12.0 [facility] Comment on above: Performed By: #### P T, PTT #### [facility] [address] [place] [address] Dr. Xiomy Lennon NEUT # 8.3 103/ul Critically high 1.4-6.5 [facility] Comment on above: Performed By: #### P T, PTT #### [facility] [address] [place] [address] Dr. Xiomy Lennon Neutrophils/100 WBC (Bld) 78.4 % Critically high 43.0-75.0 [facility] Comment on above: Performed By: #### P T, PTT #### [facility] [address] [place] [address] Dr. Xiomy Lennon Platelet mean volume (Bld) [Entitic vol] 11.0 fL Normal 9.5-13.[address] [facility] Comment on above: Performed By: #### P T, PTT #### [facility] [address] [place] [address] Dr. Xiomy Lennon PLT 196 103/ul Normal 150-450 [facility] Comment on above: Performed By: #### P T, PTT #### [facility] [address] [place] [address] Dr. Xiomy Lennon RBC 4.71 106/ul Normal 4.20-5.40 [facility] Comment on above: Performed By: #### P T, PTT #### [facility] [address] [place] [address] Dr. Xiomy Lennon WBC 10.6 103/ul Normal 4.0-11.0 [facility] Comment on above: Performed By: #### P T, PTT #### [facility] [address] [place] [address] Dr. Xiomy Lennon LIPASEon 03-26-2022 Lipase [Catalytic activity/Vol] 92.0 U/L Normal 73.0-393.[address] [facility] Comment on above: Performed By: #### P T, PTT #### [facility] [address] [place] [address] Dr. Xiomy Lennon PROF 14(COMP METB)on 022 Albumin [Mass/Vol] 3.6 g/dL Normal 3.4-5.0 [facility] Comment on above: Performed By: #### P T, PTT #### [facility] [address] [address] [address] Xiomy Lennon Albumin/Globulin [Mass ratio] 0.7 {ratio} Normal [facility] Comment on above: Performed By: #### P T, PTT #### [facility] [address] [address] [address] Xiomy Lennon ALP [Catalytic activity/Vol] 78 U/L Normal 46-[address] [facility] Comment on above: Performed By: #### P T, PTT #### [facility] [address] [place] [address] Dr. Xiomy Lennon ALT [Catalytic activity/Vol] 25 U/L Normal 14-[address] [facility] Comment on above: Performed By: #### P T, PTT #### [facility] [address] [address] [address] Xiomy Lennon Anion gap [Moles/Vol] 9.4 mmol/L Normal [facility] Comment on above: Performed By: #### P T, PTT #### [facility] [address] [place] [address] Dr. Xiomy Lennon AST [Catalytic activity/Vol] 19 U/L Normal 15-[address] [facility] Comment on above: Performed By: #### P T, PTT #### [facility] [address] [address] [address] Xiomy Lennon Bilirubin [Mass/Vol] 0.3 mg/dL Normal 0.2-1.[address] [facility] Comment on above: Performed By: #### P T, PTT #### [facility] [address] [address] [address] Xiomy Lennon Calcium [Mass/Vol] 9.9 mg/dL Normal 8.5-10.1 [facility] [place] Comment on above: Performed By: #### P T, PTT #### [facility] [address] [address] [address] Xiomy Lennon Chloride [Moles/Vol] 96 mmol/L Critically low 98-[address] [facility] Comment on above: Performed By: #### P T, PTT #### [facility] [address] [place] [address] Dr. Xiomy Lennon CO2 [Moles/Vol] 34.6 mmol/L Critically high 21.0-32.[address] [facility] Comment on above: Performed By: #### P T, PTT #### [facility] [address] [place] [address] Dr. Xiomy Lennon Creatinine [Mass/Vol] 0.93 mg/dL Normal 0.55-1.[address] [facility] Comment on above: Performed By: #### P T, PTT #### [facility] [address] [place] [address] Dr. Xiomy Lennon EGFR-AF KOSOVAN >60 Normal >=60 [facility] Comment on above: Performed By: #### P T, PTT #### [facility] [address] [place] [address] Dr. Xiomy Lennon EGFR-NON AF KOSOVAN >60 Normal >=[address] [facility] Comment on above: Performed By: #### P T, PTT #### [facility] [address] [place] [address] Dr. Xiomy Lennon Globulin (S) [Mass/Vol] 5.0 g/dL Normal [facility] Comment on above: Performed By: #### P T, PTT #### [facility] [address] [place] [address] Dr. Xiomy Lennon Glucose [Mass/Vol] 139 mg/dL Critically high 74-106 [facility] Comment on above: Performed By: #### P T, PTT #### [facility] [address] [place] [address] Dr. Xiomy Lennon Potassium [Moles/Vol] 4.0 mmol/L Normal 3.5-5.[address] [facility] Comment on above: Performed By: #### P T, PTT #### [facility] [address] [place] [address] Dr. Xiomy Lennon Protein [Mass/Vol] 8.6 g/dL Critically high 6.4-8.2 [facility] Comment on above: Performed By: #### P T, PTT #### [facility] [address] [place] [address] Dr. Xiomy Lennon Sodium [Moles/Vol] 136 mmol/L Normal 136-145 [facility] Comment on above: Performed By: #### P T, PTT #### [facility] [address] [place] [address] Dr. Xiomy Lennon Urea nitrogen [Mass/Vol] 19.0 mg/dL Critically high 7.0-18.[address] [facility] Comment on above: Performed By: #### P T, PTT #### [facility] [address] [place] [address] Dr. Xiomy Lennon Urea nitrogen/Creatinine [Mass ratio] 20.4 mg/mg Normal [facility] Comment on above: Performed By: #### P T, PTT #### [facility] [address] [place] [address] Dr. Xiomy Lennon PROTIMEon 03-26-2022 INR Coag (PPP) [Relative time] 0.99 {INR} Normal [facility] Comment on above: Performed By: #### P T, PTT #### [facility] [address] [place] [address] Dr. Xiomy Lennon INR GUIDELINES SEE BELOW Normal [facility] Comment on above: Result Comment: NIALL RED INR: 2.0 - 3.0 CONDITIONS NOT LISTED BELOW 2.5 - 3.5 FOR PROSTHETIC HEART VALVE REPLACEMENT 2.5 - 3.5 RECURRENT THROMBOSIS Performed By: #### P T, PTT #### [facility] [address] [place] [address] Dr. Xiomy Lennon PT Coag (PPP) [Time] 10.7 s Normal 9.0-11.[address] [facility] Comment on above: Performed By: #### P T, PTT #### [facility] [address] [place] [address] Dr. Xiomy Lennon PTTon 03-26-2022 aPTT Coag (Bld) [Time] 26.9 s Normal 22.3-36.2 Th e [facility] Comment on above: Performed By: #### P T, PTT #### [facility] [address], [place] [address] Dr. Xiomy Lennon TROPONIN, HIGH SENSITIVITYon 03-26-2022 HSTROP 8.0 pg/mL Normal 4.0-51.[address] [facility] Comment on above: Result Comment: CUT- OFF POINTS HAVE BEEN ESTABLISHED BASED ON THE FOURTH UNIVERSAL DEFINITIONS OF MYOCARDIAL INFARCTION. THE UPPER REFERENCE LIMIT (URL) OF TROPONIN, DEFINED THE 99TH PERCENTILE OF cTnI DISTRIBUTION IN A REFERENCE POPULATION, HAS BEEN CONFIRMED THE DECISION THRESHOLD FOR AK DIAGNOSIS. Performed By: #### P T, PTT #### [facility] [id number] Xiomy Lennon US SINGLE QUAD RT [...] KENDY HERRERA Date: 2022-03-26 19:58 Normal [facility] Cardiovascular Lab Reporton 06-15-2021 Cardiovascular Lab Report [facility] Patient Name: Teresa [facility] J MR #: [id number] Department of Physician: Boo Landers M.D. Division of Service Date: 06/15/2021 Cardiology Birthdate: 1965 Adult Cardiovascular Room #: [address] [place] [address] Cardiovascular Laboratory Report IMPRESSIONS: 1. Mild disease [...] management; given mild coronary artery disease, aspirin, [id number] intensity statin therapy, beta-aleks, and angiotensin-convertin g enzyme inhibitor are indicated. 4. Follow up with Toshia Sam nurse practitioner in the next 2 to 3 months. 5. Follow up with her family physician as scheduled. PROCEDURES: Ultrasound-guided access to the right common femoral vein, ultrasound-guided access to the right common femoral artery, right heart catheterization, bilateral selective coronary angiography, placement of a 6-Icelandic MynxGrip closure device. METHODS: After risks, benefits, [...] femoral vein and artery was obtained. A 6-Icelandic 11 cm sheath was placed in each. Baseline femoral arterial angiography was performed. A Lorea catheter was used for right heart catheterization [...] the procedure. All catheters were removed. A 6-Icelandic MynxGrip closure device was deployed per protocol [...] Adriana/Marlene Soto M.D. Date Trans: 06/15/2021 11:37 Adriana/sofía [id number] cc: Toshia Sam, JOHN, NATURAL GAS TRADER-C Department Of Surgery [address] [facility] [address] Normal The [facility] Vital Signs Date Time Vital Sign Value Performing Clinician Facility 05-29-2025 05:21-0400 Body weight 120.2 kg Marshall Mckeon MD Work Phone: [facility] 05-29-2025 04:26-0400 Diastolic blood pressure 64 mm[Hg] Marshall Mckeon MD Work Phone: [facility] 05-29-2025 04:26-0400 Heart rate 87 /min Marshall Mckeon MD Work Phone: [facility] 05-29-2025 04:26-0400 Inhaled oxygen flow rate 3 L/min Marshall Mckeon MD Work Phone: [facility] 05-29-2025 04:26-0400 Respiratory rate 17 /min Marshall Mckeon MD Work Phone: [facility] 05-29-2025 04:26-0400 SaO2% (BldA) [Mass fraction] 97 % Marshall Mckeon MD Work Phone: [facility] 05-29-2025 04:26-0400 Systolic blood pressure 109 mm[Hg] Marshall Mckeon MD Work Phone: [facility] 05-28-2025 23:39-0400 Body height 175.26 cm Marshall Mckeon MD Work Phone: [facility] 05-28-2025 23:39-0400 Body temperature 98 [degF] Marshall Mckeon MD Work Phone: [facility] 05-28-2025 23:39-0400 Body weight 120.2 kg Marshall Mckeon MD Work Phone: [facility] 05-28-2025 23:39-0400 Diastolic blood pressure 72 mm[Hg] Marshall Mckeon MD Work Phone: [facility] 05-28-2025 23:39-0400 Respiratory rate 17 /min Marshall Mckeon MD Work Phone: [facility] 05-28-2025 23:39-0400 SaO2% (BldA) [Mass fraction] 97 % Marshall Mckeon MD Work Phone: [facility] 05-28-2025 23:39-0400 Systolic blood pressure 131 mm[Hg] Marshall Mckeon MD Work Phone: [facility] 05-28-2025 09:34-0400 Diastolic blood pressure 60 mm[Hg] Brea Aichholz CREW DISPATCHER Work Phone: [facility] 05-28-2025 09:34-0400 Systolic blood pressure 92 mm[Hg] Brea Cheleholz CREW DISPATCHER Work Phone: [facility] 05-28-2025 09:02-0400 Body mass index (BMI) [Ratio] 37.18 kg/m2 Brea Cheleholz CREW DISPATCHER Work Phone: [facility] 05-28-2025 09:02-0400 Body temperature 98.1 [degF] Brea Cheleholz CREW DISPATCHER Work Phone: [facility] 05-28-2025 09:02-0400 Body weight 114.22 kg Brea Cheleholz CREW DISPATCHER Work Phone: [facility] 05-28-2025 09:02-0400 Heart rate 83 /min Brea Cheleholz CREW DISPATCHER Work Phone: [facility] 05-28-2025 09:02-0400 Respiratory rate 20 /min Brea Cheleholz CREW DISPATCHER Work Phone: [facility] 05-28-2025 09:02-0400 SaO2% (BldA) [Mass fraction] 96 % Brea Cheleholz CREW DISPATCHER Work Phone: [facility] 02-25-2025 09:57-0400 Body mass index (BMI) [Ratio] 37.39 kg/m2 Brea Cheleholz [employer]W DISPATCHER Work Phone: [facility] 02-25-2025 09:57-0400 Body temperature 98.1 [degF] Brea Cheleholz CREW DISPATCHER Work Phone: [facility] 02-25-2025 09:57-0400 Body weight 114.85 kg Brea Cheleholz CREW DISPATCHER Work Phone: [facility] 02-25-2025 09:57-0400 Diastolic blood pressure 68 mm[Hg] Brea Angelyhholz CREW DISPATCHER Work Phone: [facility] 02-25-2025 09:57-0400 Heart rate 93 /min Brea Angelyhholz CREW DISPATCHER Work Phone: [facility] 02-25-2025 09:57-0400 Respiratory rate 20 /min Brea Aichholz [employer]W DISPATCHER Work Phone: [facility] 02-25-2025 09:57-0400 SaO2% (BldA) [Mass fraction] 92 % Brea Aichholz CREW DISPATCHER Work Phone: [facility] 02-25-2025 09:57-0400 Systolic blood pressure 100 mm[Hg] Brea Aichholz CREW DISPATCHER Work Phone: [facility] [facility] 12-26-2024 09:46-0500 Body height 175.3 cm Brea Aichholz CREW DISPATCHER Work Phone: [facility] 12-26-2024 09:46-0500 Body mass index (BMI) [Ratio] 36.59 kg/m2 Brea Angelyhholz CREW DISPATCHER Work Phone: [facility] 12-26-2024 09:46-0500 Body temperature 98.6 [degF] Brea Aichholz CREW DISPATCHER Work Phone: [facility] 12-26-2024 09:46-0500 Body weight 112.4 kg Brea Angelyhholz CREW DISPATCHER Work Phone: [facility] 12-26-2024 09:46-0500 Diastolic blood pressure 70 mm[Hg] Brea Aichholz CREW DISPATCHER Work Phone: [facility] 12-26-2024 09:46-0500 Heart rate 112 /min Brea Aichholz CREW DISPATCHER Work Phone: [facility] 12-26-2024 09:46-0500 Respiratory rate 20 /min Brea Aichholz CREW DISPATCHER Work Phone: [facility] 12-26-2024 09:46-0500 SaO2% (BldA) [Mass fraction] 94 % Brea Aichholz CREW DISPATCHER Work Phone: [facility] 12-26-2024 09:46-0500 Systolic blood pressure 108 mm[Hg] Brea Aichholz CREW DISPATCHER Work Phone: [facility] 12-03-2024 09:03-0500 Body height 175.3 cm Brea Aichholz CREW DISPATCHER Work Phone: [facility] 12-03-2024 09:03-0500 Body mass index (BMI) [Ratio] 36.68 kg/m2 Brea Aichholz CREW DISPATCHER Work Phone: [facility] 12-03-2024 09:03-0500 Body temperature 98.49 [degF] Brea Aichholz CREW DISPATCHER Work Phone: [facility] 12-03-2024 09:03-0500 Body weight 112.67 kg Brea Aichholz CREW DISPATCHER Work Phone: [facility] 12-03-2024 09:03-0500 Diastolic blood pressure 62 mm[Hg] Brea Aichholz CREW DISPATCHER Work Phone: [facility] 12-03-2024 09:03-0500 Heart rate 112 /min Brea Aichholz CREW DISPATCHER Work Phone: [facility] 12-03-2024 09:03-0500 Respiratory rate 20 /min Brea Aichholz CREW DISPATCHER Work Phone: [facility] 12-03-2024 09:03-0500 SaO2% (BldA) [Mass fraction] 93 % Brea Aichholz CREW DISPATCHER Work Phone: [facility] 12-03-2024 09:03-0500 Systolic blood pressure 110 mm[Hg] Brea Aichholz CREW DISPATCHER Work Phone: [facility] 10-29-2024 18:18-0500 SaO2% (BldA) [Mass fraction] 93 % Brea Aichholz CREW DISPATCHER Work Phone: [facility] 10-29-2024 18:01-0500 Body height 175.3 cm Brea Aichholz CREW DISPATCHER Work Phone: [facility] 10-29-2024 18:01-0500 Body mass index (BMI) [Ratio] 38.87 kg/m2 Brea Aichholz CREW DISPATCHER Work Phone: [facility] 10-29-2024 18:01-0500 Body temperature 97.81 [degF] Brea Aichholz CREW DISPATCHER Work Phone: [facility] 10-29-2024 18:01-0500 Body weight 119.39 kg Brea Aichholz CREW DISPATCHER Work Phone: [facility] 10-29-2024 18:01-0500 Diastolic blood pressure 68 mm[Hg] Brea Aichholz CREW DISPATCHER Work Phone: [facility] 10-29-2024 18:01-0500 Heart rate 96 /min Brea Aichholz CREW DISPATCHER Work Phone: [facility] 10-29-2024 18:01-0500 Respiratory rate 18 /min Brea Aichholz CREW DISPATCHER Work Phone: [facility] 10-29-2024 18:01-0500 Systolic blood pressure 118 mm[Hg] Brea Aichholz CREW DISPATCHER Work Phone: [facility] 07-24-2024 09:22-0400 Body height 175.3 cm Brea Aichholz CREW DISPATCHER Work Phone: [facility] 07-24-2024 09:22-0400 Body mass index (BMI) [Ratio] 38.45 kg/m2 Brea Aichholz CREW DISPATCHER Work Phone: [facility] 07-24-2024 09:22-0400 Body temperature 98.29 [degF] Brea Aichholz CREW DISPATCHER Work Phone: [facility] 07-24-2024 09:22-0400 Body weight 118.12 kg Brea Aichholz CREW DISPATCHER Work Phone: [facility] 07-24-2024 09:22-0400 Diastolic blood pressure 82 mm[Hg] Brea Aichholz CREW DISPATCHER Work Phone: [facility] 07-24-2024 09:22-0400 Heart rate 83 /min Brea Jj CREW DISPATCHER Work Phone: [facility] 07-24-2024 09:22-0400 Respiratory rate 19 /min Brea Jj CREW DISPATCHER Work Phone: [facility] 07-24-2024 09:22-0400 SaO2% (BldA) [Mass fraction] 90 % Brea Jj CREW DISPATCHER Work Phone: [facility] 07-24-2024 09:22-0400 Systolic blood pressure 130 mm[Hg] Brea Jj CREW DISPATCHER Work Phone: [facility] 07-23-2024 10:37-0400 Body temperature 98.42 [degF] Mariama YuMediaXstream [facility] 07-23-2024 10:37-0400 Diastolic blood pressure 69 mm[Hg] Mariama Yuboske [facility] 07-23-2024 10:37-0400 Heart rate 94 /min Mariama Yuboske [facility] 07-23-2024 10:37-0400 Mean blood pressure 81 mm[Hg] Mariama Yuboske [facility] 07-23-2024 10:37-0400 Respiratory rate 16 /min Mariama Yuboske [facility] 07-23-2024 10:37-0400 SaO2% (BldA) [Mass fraction] 92 % Mariama Yuboske [facility] 07-23-2024 10:37-0400 Systolic blood pressure 106 mm[Hg] Mariama Yuboske [facility] 01-16-2024 11:17-0400 Body temperature 97.7 [degF] Mariama Yuboske [facility] 01-16-2024 11:17-0400 Diastolic blood pressure 73 mm[Hg] Mariama Barcenas [facility] 01-16-2024 11:17-0400 Heart rate 109 /min Mariama Barcenas [facility] 01-16-2024 11:17-0400 Mean blood pressure 92 mm[Hg] Mariama Barcenas [facility] 01-16-2024 11:17-0400 Respiratory rate 18 /min Mariama Barcenas [facility] 01-16-2024 11:17-0400 SaO2% (BldA) [Mass fraction] 94 % Mariama Barcenas [facility] 01-16-2024 11:17-0400 Systolic blood pressure 130 mm[Hg] Mariama Barcenas [facility] 12-05-2023 08:48-0500 Body height 175.3 cm Brea Zechariahz CREW DISPATCHER Work Phone: [facility] 12-05-2023 08:48-0500 Body mass index (BMI) [Ratio] 37.51 kg/m2 Brea Zechariahz CREW DISPATCHER Work Phone: [facility] 12-05-2023 08:48-0500 Body temperature 97.11 [degF] Brea Angelyhholz CREW DISPATCHER Work Phone: [facility] 12-05-2023 08:48-0500 Body weight 115.21 kg Brea Aichholz CREW DISPATCHER Work Phone: [facility] 12-05-2023 08:48-0500 Diastolic blood pressure 68 mm[Hg] Brea Aichholz CREW DISPATCHER Work Phone: [facility] 12-05-2023 08:48-0500 Heart rate 103 /min Brea Cheleholz CREW DISPATCHER Work Phone: [facility] 12-05-2023 08:48-0500 Respiratory rate 17 /min Brea Elainelloyd CREW DISPATCHER Work Phone: [facility] 12-05-2023 08:48-0500 SaO2% (BldA) [Mass fraction] 99 % Brea Jj CREW DISPATCHER Work Phone: [facility] 12-05-2023 08:48-0500 Systolic blood pressure 110 mm[Hg] Brea Applez CREW DISPATCHER Work Phone: [facility] 09-25-2023 21:50-0500 Diastolic blood pressure 73 mm[Hg] Demond Avni [facility] 09-25-2023 21:50-0500 Heart rate 95 /min Demond Avni [facility] 09-25-2023 21:50-0500 Mean blood pressure 90 mm[Hg] Demond Avni [facility] 09-25-2023 21:50-0500 Respiratory rate 22 /min Demond Avni [facility] 09-25-2023 21:50-0500 SaO2% (BldA) [Mass fraction] 97 % Demond Avni [facility] 09-25-2023 21:50-0500 Systolic blood pressure 123 mm[Hg] Demond Avni [facility] 09-25-2023 20:37-0500 Diastolic blood pressure 77 mm[Hg] Demond Avni [facility] 09-25-2023 20:37-0500 Heart rate 94 /min Demond Avni [facility] 09-25-2023 20:37-0500 Mean blood pressure 99 mm[Hg] Demond Avni [facility] 09-25-2023 20:37-0500 Respiratory rate 18 /min Demond Avni [facility] 09-25-2023 20:37-0500 SaO2% (BldA) [Mass fraction] 97 % Demond Avni [facility] 09-25-2023 20:37-0500 Systolic blood pressure 144 mm[Hg] Demond Avni [facility] 09-25-2023 19:50-0500 Diastolic blood pressure 83 mm[Hg] Demond Avni [facility] 09-25-2023 19:50-0500 Heart rate 100 /min Demond Avni [facility] 09-25-2023 19:50-0500 Mean blood pressure 104 mm[Hg] Demond Avni [facility] 09-25-2023 19:50-0500 Respiratory rate 22 /min Demond Avni [facility] 09-25-2023 19:50-0500 SaO2% (BldA) [Mass fraction] 98 % Demond Avni [facility] 09-25-2023 19:50-0500 Systolic blood pressure 147 mm[Hg] Demond Avni [facility] 09-25-2023 18:23-0500 Body temperature 98.24 [degF] Demond Avni [facility] 09-25-2023 18:23-0500 Heart rate 111 /min Demond Avni [facility] 09-25-2023 18:23-0500 Respiratory rate 24 /min Demond Avni [facility] 09-08-2023 20:26-0500 Body temperature 98.06 [degF] Ramses Hair [facility] 11-09-2023 20:26-0500 Diastolic blood pressure 76 mm[Hg] Ramses Reginaldo [facility] 09-08-2023 20:26-0500 Heart rate 81 /min Ramses Reginaldo [facility] 09-08-2023 20:26-0500 Mean blood pressure 87 mm[Hg] Ramses Reginaldo [facility] 09-08-2023 20:26-0500 Respiratory rate 20 /min Ramses Reginaldo [facility] 09-08-2023 20:26-0500 SaO2% (BldA) [Mass fraction] 99 % Ramses Reginaldo [facility] 09-08-2023 20:26-0500 Systolic blood pressure 110 mm[Hg] Ramses Reginaldo [facility] 09-08-2023 19:28-0500 Diastolic blood pressure 61 mm[Hg] Ramses Reginaldo [facility] 09-08-2023 19:28-0500 Heart rate 86 /min Ramses Reginaldo [facility] 09-08-2023 19:28-0500 Mean blood pressure 82 mm[Hg] Ramses Reginaldo [facility] 09-08-2023 19:28-0500 Respiratory rate 18 /min Ramses Reginaldo [facility] 09-08-2023 19:28-0500 SaO2% (BldA) [Mass fraction] 99 % Ramses Reginaldo [facility] 09-08-2023 19:28-0500 Systolic blood pressure 123 mm[Hg] Ramses Reginaldo [facility] 09-08-2023 18:00-0500 Diastolic blood pressure 75 mm[Hg] Ramses Reginaldo [facility] 09-08-2023 18:00-0500 Heart rate 92 /min Ramses Hair [facility] 09-08-2023 18:00-0500 SaO2% (BldA) [Mass fraction] 91 % Ramses Hair [facility] 09-08-2023 18:00-0500 Systolic blood pressure 124 mm[Hg] Ramsesmaximilian Hair [facility] 09-08-2023 16:33-0500 Body temperature 98.24 [degF] Ramsesmaximilian Hair [facility] 09-08-2023 16:33-0500 Heart rate 104 /min Ramses Hair [facility] 09-08-2023 16:33-0500 Respiratory rate 24 /min Ramses Hair [facility] 07-19-2023 09:00-0400 Blood Pressure Location Mhd Al-Marrawi [facility] 07-19-2023 09:00-0400 Body temperature 98.06 [degF] Mhd Al-Marrawi [facility] 07-19-2023 09:00-0400 Diastolic blood pressure 72 mm[Hg] Mhd Al-Marrawi [facility] 07-19-2023 09:00-0400 Heart rate 79 /min Mhd Al-Marrawi [facility] 07-19-2023 09:00-0400 Mean blood pressure 88 mm[Hg] Mhd Al-Marrawi [facility] 07-19-2023 09:00-0400 Respiratory rate 18 /min Mhd Al-Marrawi [facility] 07-19-2023 09:00-0400 SaO2% (BldA) [Mass fraction] 93 % d Al-Marrawi [facility] 07-19-2023 09:00-0400 Systolic blood pressure 120 mm[Hg] [facility] Al-Marrawi [facility] 06-28-2023 10:00-0400 Blood Pressure Location Ezekielaashish Christian [facility] 06-28-2023 10:00-0400 Body temperature 98.06 [degF] [facility]-28-[facility] 10:00-0400 Diastolic blood pressure 69 mm[Hg] [facility]-28-[facility]23 10:00-0400 Heart rate 101 /min [facility] 06-28-2023 10:00-0400 Mean blood pressure 90 mm[Hg] [facility] 06-28-2023 10:00-0400 Respiratory rate 16 /min [facility] 06-28-2023 10:00-0400 SaO2% (BldA) [Mass fraction] 92 % Ezekielaashish Christian [facility] 06-28-2023 10:00-0400 Systolic blood pressure 133 mm[Hg] Ezekielaashish Christian [facility] 06-17-2023 17:06-0400 Hourly Rounding Mbanefo OJUKWU [facility] 06-17-2023 17:06-0400 Promise to Return Mbanefo OJUKWU [facility] 06-17-2023 16:00-0400 Hourly Rounding Mbanefo OJUKWU [facility] 06-17-2023 16:00-0400 Promise to Return Mbanefo OJUKWU [facility] 08-18-2023 15:42-0400 Heart rate 82 /min Mbanefo OJUKWU [facility] 06-17-2023 15:42-0400 SaO2% (BldA) [Mass fraction] 95 % Mbanefo OJUKWU [facility] 06-17-2023 15:42-0400 Diastolic blood pressure 64 mm[Hg] Mbanefo OJUKWU [facility] 06-17-2023 15:42-0400 Mean blood pressure 79 mm[Hg] Mbanefo OJUKWU [facility] 06-17-2023 15:42-0400 Systolic blood pressure 109 mm[Hg] Mbanefo OJUKWU [facility] 06-17-2023 15:41-0400 Body temperature 97.88 [degF] Mbanefo OJUKWU [facility] 06-17-2023 15:05-0400 Hourly Rounding Mbanefo OJUKWU [facility] 06-17-2023 15:05-0400 Promise to Return Mbanefo OJUKWU [facility] 06-17-2023 14:00-0400 SaO2% (BldA) [Mass fraction] 96 % Mbanefo OJUKWU [facility] 06-17-2023 12:53-0400 Heart rate 87 /min Mbanefo OJUKWU [facility] 06-17-2023 12:53-0400 Respiratory rate 18 /min Mbanefo OJUKWU [facility] 06-17-2023 12:48-0400 SaO2% (BldA) [Mass fraction] 95 % Mbanefo OJUKWU [facility] 06-17-2023 12:44-0400 Heart rate 86 /min Mbanefo OJUKWU [facility] 06-17-2023 12:44-0400 Respiratory rate 18 /min Mbanefo OJUKWU [facility] 06-17-2023 12:00-0400 Diastolic blood pressure 66 mm[Hg] Mbanefo OJUKWU [facility] 06-17-2023 12:00-0400 Mean blood pressure 86 mm[Hg] Mbanefo OJUKWU [facility] 06-17-2023 12:00-0400 Systolic blood pressure 125 mm[Hg] Mbanefo OJUKWU [facility] 06-17-2023 09:19-0400 Diastolic blood pressure 71 mm[Hg] Mbanefo OJUKWU [facility] 06-17-2023 09:19-0400 Systolic blood pressure 134 mm[Hg] Mbanefo OJUKWU [facility] 06-17-2023 09:16-0400 gluc 173 mg/dL Mbanefo OJUKWU [facility] 06-17-2023 07:33-0400 Mean blood pressure 90 mm[Hg] Mbanefo OJUKWU [facility] 06-17-2023 07:33-0400 Body temperature 97.88 [degF] Mbanefo OJUKWU [facility] 06-17-2023 04:00-0400 Blood Pressure Location Mbanefo OJUKWU [facility] 06-17-2023 04:00-0400 Body temperature 98.24 [degF] Mbanefo OJUKWU [facility] 06-17-2023 04:00-0400 Mean blood pressure 91 mm[Hg] Mbanefo OJUKWU [facility] 06-17-2023 00:00-0400 Body temperature 97.88 [degF] Mbanefo OJUKWU [facility] 06-16-2023 22:48-0400 Blood Pressure Location Mbanefo OJUKWU [facility] 06-16-2023 22:48-0400 Body temperature 98.24 [degF] Mbanefo OJUKWU [facility] 06-16-2023 22:48-0400 Heart rate 80 /min Mbanefo OJUKWU [facility] 06-16-2023 21:42-0400 Mean blood pressure 76 mm[Hg] Mbanefo OJUKWU [facility] 06-16-2023 21:42-0400 Respiratory rate 18 /min Mbanefo OJUKWU [facility] 06-16-2023 20:45-0400 Mean blood pressure 95 mm[Hg] Mbanefo OJUKWU [facility] 06-16-2023 20:45-0400 Respiratory rate 18 /min Mbanefo OJUKWU [facility] 06-16-2023 19:39-0400 Respiratory rate 18 /min Mbanefo OJUKWU [facility] 08-17-2023 15:51-0400 Heart rate 107 /min Alex DESOUZAWU [facility] 06-16-2023 15:51-0400 Respiratory rate 22 /min Alex DESOUZAWU [facility] Encounters Encounter Date Encounter Type Care Provider Facility Start: 06-24-2025 End: 06-24-2025 Clinisync Result Encounter Generic External Data Provider [facility] Unsolicited Start: 06-24-2025 End: 06-24-2025 Clinisync Result Encounter Generic External Data Provider [facility] External [facility] Unsolicited Start: 06-05-2025 End: 06-05-2025 Clinisync Result Encounter Brea Aicvickyholz CREW DISPATCHER Work Phone: [facility] Unsolicited Start: 06-05-2025 End: 06-05-2025 Clinisync Result Encounter Brea Aichholz CREW DISPATCHER Work Phone: [facility] Unsolicited Start: 06-05-2025 End: 07-02-2025 Refill Brea Aichholz CREW DISPATCHER Work Phone: [facility] Comment on above: Hypomagnesemia Start: 05-30-2025 End: 05-30-2025 Refill Brea Aichholz CREW DISPATCHER Work Phone: [facility] Comment on above: Hypomagnesemia (Prim fay Dx); LAINA (acute kidney injury) Start: 05-29-2025 End: 05-29-2025 Clinisync Result Encounter Brea Aichholz CREW DISPATCHER Work Phone: [facility] Unsolicited Start: 05-29-2025 End: 05-29-2025 Clinisync Result Encounter Bera Aichholz CREW DISPATCHER Work Phone: [facility] Unsolicited Start: 05-28-2025 End: 05-29-2025 Evaluation and management of inpatient Marshall Mckeon MD -[facility] Work Phone: Start: 05-28-2025 End: 05-28-2025 Bamboo flowsheet Brea Jj CREW DISPATCHER Work Phone: [facility] Start: 05-28-2025 End: 05-29-2025 Bamboo flowsheet Brea Jj CREW DISPATCHER Work Phone: [facility] Start: 05-28-2025 End: 05-28-2025 Clinisync Result Encounter Brea Jj CREW DISPATCHER Work Phone: [facility] External [facility] Unsolicited Start: 05-28-2025 End: 05-29-2025 External Result Encounter Brea Jj CREW DISPATCHER Work Phone: [facility] Unsolicited Start: 05-28-2025 End: 05-28-2025 ambulatory Marshall Mckeon MD Work Phone: [facility] Work Phone: Start: 05-28-2025 End: 05-28-2025 Departed Referred Brea Jj CREW DISPATCHER-C -[facility] Start: 05-28-2025 End: 05-28-2025 Office outpatient visit 25 minutes Brea Jj NP Work Phone: [facility] Comment on above: Vomiting and diarrhe a (Primary Dx); Restless leg syndrome; ROLANDO (obstructive sleep apnea); Essential (primary) hypertension ; Gastroesophageal reflux disease without esophagitis; Edema of both lower extremities; Type 2 diabetes mellitus without complication, without long-term current use of insulin ([facility]); Class 2 severe obesity due to excess calories with serious comorbidity and body mass index (BMI) of 37.0 to 37.9 in adult ([facility]); Mixed hyperlipidemia ; Anxiety and depression ; Primary hypertension Start: 05-28-2025 End: 05-28-2025 ambulatory BREA ANGELYHHOLZ Not Available Start: 05-10-2025 End: 05-10-2025 Refill Breaadriana Jj CREW DISPATCHER Work Phone: [facility] Comment on above: Anxiety and depressi on ; Restless leg syndrome; Other insomnia Start: 04-30-2025 End: 04-30-2025 Clinisync Result Encounter Generic External Data Provider [facility] External [facility] Unsolicited Start: 04-30-2025 End: 04-30-2025 Clinisync Result Encounter Generic External Data Provider [facility] External [facility] Unsolicited Start: 04-17-2025 End: 04-17-2025 Clinisync Result Encounter Brea Jj CREW DISPATCHER Work Phone: [facility] External [facility] Unsolicited Start: 04-17-2025 End: 04-17-2025 Clinisync Result Encounter Brea Jj CREW DISPATCHER Work Phone: [facility] Unsolicited Start: 04-04-2025 End: 04-04-2025 Refill Breaadriana Jj CREW DISPATCHER Work Phone: [facility] Comment on above: Vitamin deficiency ( Primary Dx) Start: 03-28-2025 End: 03-28-2025 ambulatory [facility] Start: 03-06-2025 End: 03-06-2025 Refill Breaadriana Jj CREW DISPATCHER Work Phone: [facility] Comment on above: Osteopenia after men opause (Primary Dx) Start: 02-25-2025 End: 02-25-2025 Bamboo flowsheet Brea Jj CREW DISPATCHER Work Phone: [facility] Start: 02-25-2025 End: 02-25-2025 Bamboo flowsheet Brea Jj CREW DISPATCHER Work Phone: [facility] Start: 02-25-2025 End: 02-25-2025 Patient encounter status Brea Jj CREW DISPATCHER Work Phone: [facility] Start: 02-25-2025 End: 02-25-2025 Periodic preventive med est patient 40-64yrs Brea Jj CREW DISPATCHER Work Phone: [facility] Comment on above: Encounter for wellne ss examination in adult (Primary Dx); Essential (primary) hypertension (CMS/HCC); Gastroesophageal reflux disease without esophagitis; Type 2 diabetes mellitus without complication, without long-term current use of insulin; Iron deficiency anemia, unspecified iron deficiency anemia type; Anxiety and depression ([facility]); Mixed hyperlipidemia ([facility]); Edema of both lower extremities; Restless leg syndrome; Primary hypertension ([facility]); Other insomnia; COPD exacerbation ([facility]) Start: 02-25-2025 End: 02-25-2025 ambulatory BREA AICHHOLZ Not Available Start: 02-06-2025 End: 02-06-2025 Refill Brea Aichholz CREW DISPATCHER Work Phone: [facility] Comment on above: Edema of both lower extremities (Primary Dx) Start: 01-28-2025 End: 01-28-2025 Refill Brea Aicvickyholz CREW DISPATCHER Work Phone: [facility] Comment on above: Anxiety and depressi on ([facility]) Start: 01-14-2025 End: 01-29-2025 Pre-admission assessment [facility] Start: 01-14-2025 End: 01-14-2025 ambulatory [facility] [place] Facility:[facility] Start: 12-31-2024 End: 12-31-2024 Bamboo flowsheet Ladonna A Felter MEDICAL TRANSLATOR-RUG CLEANER HELPER Work Phone: [facility] Start: 12-31-2024 End: 12-31-2024 Bamboo flowsheet Ladonna A Felter MEDICAL TRANSLATOR-RUG CLEANER HELPER Work Phone: [facility] Start: 12-31-2024 End: 12-31-2024 Refill Brea Aichholz CREW DISPATCHER Work Phone: [facility] Comment on above: Edema of both lower extremities (Primary Dx) Start: 12-31-2024 End: 12-31-2024 Office outpatient visit 15 minutes Ladonna Doller MEDICAL TRANSLATOR-RUG CLEANER HELPER Work Phone: [facility] Comment on above: Other atopic dermati tis Start: 12-31-2024 End: 12-31-2024 ambulatory LADONNA A FELTER Not Available Start: 12-26-2024 End: 12-26-2024 Office outpatient visit 25 minutes Brea Jj NP Work Phone: [facility] Comment on above: Irritable bowel synd trinity with diarrhea (Primary Dx); Centrilobular emphysema (CMS/HCC); Chronic respiratory failure with hypoxia (CMS/HCC); Essential (primary) hypertension (CMS/HCC); Gastroesophageal reflux disease without esophagitis; Class 2 severe obesity due to excess calories with serious comorbidity and body mass index (BMI) of 37.0 to 37.9 in adult (CMS/[facility]); Occult blood positive stool; Tobacco dependence syndrome; Anxiety and depression ([facility]) Start: 12-26-2024 End: 12-26-2024 ambulatory BREA JJ Facility:[facility] Start: 12-25-2024 End: 12-25-2024 Orders Only Brea Jj CREW DISPATCHER Work Phone: [facility] Comment on above: Diarrhea, unspecifie d type (Primary Dx); Occult blood positive stool; Weight loss, unintentional Start: 12-21-2024 End: 12-21-2024 Clinisync Result Encounter Brea Jj NP Work Phone: [facility] Unsolicited Start: 12-21-2024 End: 12-21-2024 Clinisync Result Encounter Brea Jj NP Work Phone: [facility] Unsolicited Start: 12-10-2024 End: 12-10-2024 Bamboo flowsheet Ladonna A Felter MEDICAL TRANSLATOR-RUG CLEANER HELPER Work Phone: [facility] Start: 12-10-2024 End: 12-10-2024 Bamboo flowsheet Ladonna A Felter MEDICAL TRANSLATOR-RUG CLEANER HELPER Work Phone: [facility] Start: 12-10-2024 End: 12-10-2024 Office outpatient new 45 minutes Ladnona A Felter MEDICAL TRANSLATOR-RUG CLEANER HELPER Work Phone: [facility] Comment on above: Other atopic dermati tis; Lichen simplex chronicus Start: 12-10-2024 End: 12-10-2024 ambulatory LADONNA BANG Not Available Start: 12-05-2024 End: 12-05-2024 Refill Breaadriana Jj CREW DISPATCHER Work Phone: [facility] Comment on above: Arthritis (Primary D x) Start: 12-04-2024 End: 12-04-2024 Clinisync Result Encounter Brea Jj CREW DISPATCHER Work Phone: [facility] External Department Unsolicited Start: 12-04-2024 End: 12-04-2024 Clinisync Result Encounter Brea Jj CREW DISPATCHER Work Phone: [facility] Unsolicited Start: 12-03-2024 End: 12-03-2024 Bamboo flowsheet Brea Jj CREW DISPATCHER Work Phone: [facility] Start: 12-03-2024 End: 12-03-2024 Bamboo flowsheet Brea Zechariahz CREW DISPATCHER Work Phone: [facility] Start: 12-03-2024 End: 12-03-2024 Refill Brea Zechariahz CREW DISPATCHER Work Phone: [facility] Comment on above: Anxiety and depressi on (CMS/HCC); Restless leg syndrome; Other insomnia Start: 12-03-2024 End: 12-03-2024 Office outpatient visit 25 minutes Brea Jj CREW DISPATCHER Work Phone: [facility] Comment on above: Weight loss, uninten tional (Primary Dx); Chronic respiratory failure with hypoxia (CMS/HCC); Morbid (severe) obesity due to excess calories (CMS/HCC); Essential (primary) hypertension (CMS/HCC); Class 2 severe obesity due to excess calories with serious comorbidity and body mass index (BMI) of 37.0 to 37.9 in adult (CMS/HCC); Rash; Tobacco dependence syndrome; Anxiety and depression (CMS/HCC); Mixed hyperlipidemia (CMS/HCC); Iron deficiency anemia, unspecified iron deficiency anemia type; Restless leg syndrome; Primary hypertension ([facility]); Gastroesophageal reflux disease without esophagitis; Type 2 diabetes mellitus without complication, without long-term current use of insulin ([facility]); Edema of both lower extremities; Nausea and vomiting, unspecified vomiting type; Diarrhea, unspecified type Start: 12-03-2024 End: 12-03-2024 ambulatory BREA AICHHOLZ Not Available Start: 10-29-2024 End: 10-29-2024 Office outpatient visit 25 minutes Brea Aichholz CREW DISPATCHER Work Phone: [facility] Comment on above: Rash (Primary Dx); Essential (primary) hypertension ([facility]); Edema of both lower extremities; Class 2 severe obesity due to excess calories with serious comorbidity and body mass index (BMI) of 37.0 to 37.9 in adult ([facility]); ROLANDO (obstructive sleep apnea); Type 2 diabetes mellitus without complication, without long-term current use of insulin ([facility]); Gastroenteritis; Iron deficiency anemia, unspecified iron deficiency anemia type Start: 10-29-2024 End: 10-29-2024 ambulatory BREA AICHHOLZ Not Available Start: 10-04-2024 End: 10-04-2024 Refill Brea Aichholz CREW DISPATCHER Work Phone: [facility] Comment on above: Gastroesophageal ref lux disease without esophagitis Start: 09-11-2024 End: 09-11-2024 Refill Gunjan Freed MA [facility] Comment on above: Mixed hyperlipidemia ([facility]) Start: 09-06-2024 End: 09-06-2024 Refill Brea Aichholz CREW DISPATCHER Work Phone: [facility] Comment on above: Osteopenia after men opause (Primary Dx) Start: 08-02-2024 End: 08-03-2024 Refill Brea Aichholz CREW DISPATCHER Work Phone: [facility] Comment on above: Type 2 diabetes demetrius itus without complication, without long- term current use of insulin ([facility]) (Primary Dx); Atherosclerosis of aorta ([facility]/HCC) Start: 07-24-2024 End: 07-24-2024 Bamboo flowsheet Brea Aichholz CREW DISPATCHER Work Phone: [facility] Start: 07-24-2024 End: 07-24-2024 Bamboo flowsheet Brea Aichholz CREW DISPATCHER Work Phone: [facility] Start: 07-24-2024 End: 07-24-2024 Office outpatient visit 25 minutes Brea Aichholz CREW DISPATCHER Work Phone: [facility] Comment on above: Anxiety and depressi on ([facility]) (Primary Dx); Mixed hyperlipidemia ([facility]); Restless leg syndrome; Primary hypertension ([facility]); Type 2 diabetes mellitus without complication, without long-term current use of insulin ([facility]); Other insomnia Start: 07-24-2024 End: 07-24-2024 ambulatory BREA AICHHOLZ Not Available Start: 07-23-2024 End: 07-23-2024 ambulatory [facility] April Barcenas [facility] Start: 07-23-2024 End: 07-23-2024 Patient encounter procedure Mariama Barcenas [facility] Start: 07-16-2024 End: 07-16-2024 ambulatory Mariama Barcenas [facility] Start: 07-16-2024 End: 07-16-2024 Patient encounter procedure Mariama Barcenas [facility] Start: 07-05-2024 End: 07-06-2024 Refill Brea Aichholz CREW DISPATCHER Work Phone: [facility] Comment on above: Gastroesophageal ref lux disease without esophagitis Start: 01-16-2024 End: 01-16-2024 ambulatory Mariama Barcenas [facility] Start: 01-16-2024 End: 01-16-2024 Patient encounter procedure Mariama Barcenas [facility] Start: 01-09-2024 End: 01-09-2024 ambulatory MD Roby Bob Facility[facility] Start: 01-09-2024 End: 01-09-2024 Patient encounter procedure Roby Bob [facility] Start: 12-08-2023 Refill Breaadriana Jj CREW DISPATCHER Work Phone: [facility] Comment on above: Anxiety and depressi on (CMS/HCC) (Primary Dx); Type 2 diabetes mellitus without complication, without long-term current use of insulin (CMS/[facility]); Arthritis Start: 12-05-2023 End: 12-05-2023 Office outpatient visit 25 minutes Brea Jj CREW DISPATCHER Work Phone: [facility] Comment on above: Other insomnia (Prim fay Dx); ROLANDO (obstructive sleep apnea); COPD mixed type ([facility]/HCC); Tobacco dependence syndrome; BMI 37.0-37.9, adult; Anxiety and depression ([facility]/HCC); Restless leg syndrome Start: 09-25-2023 End: 09-25-2023 Emergency department patient visit Demond Holly [facility] Start: 09-08-2023 End: 09-08-2023 Emergency department patient visit Ramses Hair [facility] Start: 07-19-2023 End: 07-19-2023 Patient encounter procedure Roby Bob [facility] Start: 06-28-2023 End: 06-28-2023 Patient encounter procedure Ezekiel Anahi [facility] Start: 06-16-2023 End: 06-17-2023 Observation Alex BARRIENTOS [facility] Start: 02-23-2023 End: 02-23-[address] MARIE CARVAJAL . Facility:[facility] Start: 02-01-2023 End: 02-02-2023 ambulatory CORRINA GAINES . Facility:[facility] Start: 01-12-2023 End: 01-13-2023 ambulatory RUG CLEANER HELPER BREA AICHHOLZ Facility:[facility] Start: 01-03-2023 End: 01-04-2023 ambulatory RUG CLEANER HELPER BREA AICHHOLZ Facility:[facility] Start: 11-04-2022 End: 11-05-2022 ambulatory RUG CLEANER HELPER BREA AICHHOLZ Facility:[facility] Start: 07-28-2022 End: 07-29-2022 ambulatory RUG CLEANER HELPER BREA AICHHOLZ Facility:[facility] Start: 04-30-2022 End: 05-01-2022 ambulatory RUG CLEANER HELPER BREA AICHHOLZ Facility:[facility] Start: 03-26-2022 End: 03-26-2022 ambulatory RUG CLEANER HELPER BREA AICHHOLZ Facility:[facility] Start: 06-15-2021 End: 06-16-2021 ambulatory TOSHIA SAM Facility:[facility] Procedures Date Procedure Procedure Detail Performing Clinician Start: 06-24-2025 CT LUNG SCREENING LOW DOSE Generic External Data Provider Start: 06-05-2025 ALL BASIC METABOLIC PANEL Brea Aichholz CREW DISPATCHER Work Phone: Start: 06-05-2025 ALL MAGNESIUM Brea Aich lloyd CREW DISPATCHER Work Phone: Start: 05-29-2025 ALL CBC WITH AUTO DIFF Brea Aichholz CREW DISPATCHER Work Phone: Start: 05-28-2025 ALL CBC WITH AUTO DIFF Brea Aichholz CREW DISPATCHER Work Phone: Start: 05-28-2025 Culture bacterial quanttative colony count urine Brea Aichholz CREW DISPATCHER Work Phone: Start: 05-28-2025 Hemoglobin glycosylated a1c Brea Aichholz CREW DISPATCHER Work Phone: Start: 04-30-2025 CA ECHO DOPPLER COMPLETE Generic External Data Provider Start: 04-17-2025 MM TOMOSYNTHESIS SCR EENING BI Brea Jj CREW DISPATCHER Work Phone: Start: 04-17-2025 Mammography Brea mcmahon CREW DISPATCHER Work Phone: Start: 02-25-2025 Hemoglobin glycosylated a1c Brea Jj CREW DISPATCHER Work Phone: Start: 12-21-2024 OCCULT BLOOD* Brea driscollz CREW DISPATCHER Work Phone: Start: 12-04-2024 ALL CBC WITH AUTO DIFF Brea Elainelloyd CREW DISPATCHER Work Phone: Start: 10-29-2024 Hemoglobin glycosylated a1c Brea Jj CREW DISPATCHER Work Phone: Start: 04-16-2024 Mammography Brea mcmahon CREW DISPATCHER Work Phone: Start: 04-14-2023 Mammography Brea mcmahon CREW DISPATCHER Work Phone: Start: 03-31-2020 Colonoscopy Brea mcmahon CREW DISPATCHER Work Phone: Start: 05-05-1987 section Elijah Christian Start: 06-20-1984 section Elijah Christian Cyst (disorder) Ezekiel solorzano Comment on above: Removal of cyst of r ight foot. Knee region structur e (body structure) Ezekiel Christian Comment on above: surgery Plan of Treatment Date Care Activity Detail Author Start: 03-31-2030 Screening for malignant neoplasm of colon [facility] Start: 06-23-2028 Screening for malignant neoplasm of cervix [facility] Start: 01-01-2027 Glaucoma screening Diabetes: Retinopathy Screening [facility] Start: 04-17-2026 Screening for malignant neoplasm of breast Mammogram [facility] Start: 11-28-2025 Hemoglobin A1c measurement Diabetes: Hemoglobin A1C [facility] Start: 08-28-2025 End: 08-28-2025 Patient encounter procedure [facility] Start: 08-27-2025 Hemoglobin A1c measurement Diabetes: Hemoglobin A1C [facility] Start: 07-01-2025 Influenza vaccination Influenza Vaccine (#1) [facility] Start: 06-26-2025 End: 06-05-2026 Magnesium [Mass/volume] in Serum or Plasma Magnesium Lab Routine Hypomagnesemia Expected: 06/26/2025 (Approximate), Expires: 06/05/2026 [facility] Work Phone: Comment on above: Expected: 06/26/2025 (Approximate), Expi res: 06/05/2026 Start: 06-06-2025 End: 06-10-2026 Basic metabolic 1998 panel - Serum or Plasma Basic metabolic panel Lab Routine LAINA (acute kidney injury) Expected: 06/06/2025 (Approximate), Expires: 06/10/2026 [facility] Work Phone: Comment on above: Expected: 06/06/2025 (Approximate), Expi res: 06/10/2026 Start: 06-06-2025 End: 05-30-2026 Magnesium [Mass/volume] in Serum or Plasma Magnesium Lab Routine Hypomagnesemia LAINA (acute kidney injury) Expected: 06/06/2025 (Approximate), Expires: 05/30/2026 [facility] Comment on above: Expected: 06/06/2025 (Approximate), Expi res: 05/30/2026 Start: 05-28-2025 Hospital admission [facility] Start: 05-28-2025 [facility] Start: 05-28-2025 End: 05-28-2026 Bacteria identified in Urine by Culture [facility] Comment on above: Expected: 05/28/2025 (Approximate), Expi res: 05/28/2026 Start: 05-28-2025 End: 05-28-2026 CBC W Auto Differential panel - Blood CBC and differential Lab Routine ROLANDO (obstructive sleep apnea) Gastroesophageal reflux disease without esophagitis Expected: 05/28/2025 (Approximate), Expires: 05/28/2026 [facility] Work Phone: Comment on above: Expected: 05/28/2025 (Approximate), Expi res: 05/28/2026 Start: 05-28-2025 End: 05-28-2026 Comprehensive metabolic 2000 panel - Serum or Plasma Comprehensive metabolic panel Lab Routine Essential (primary) hypertension Edema of both lower extremities Type 2 diabetes mellitus without complication, without long-term current use of insulin (HCC) Mixed hyperlipidemia Expected: 05/28/2025 (Approximate), Expires: 05/28/2026 [facility] Comment on above: Expected: 05/28/2025 (Approximate), Expi res: 05/28/2026 Start: 05-28-2025 End: 05-28-2026 Lipid 1996 panel - Serum or Plasma Lipid panel Lab Routine Mixed hyperlipidemia Expected: 05/28/2025 (Approximate), Expires: 05/28/2026 [facility] Comment on above: Expected: 05/28/2025 (Approximate), Expi res: 05/28/2026 Start: 05-28-2025 End: 05-28-2026 Microalbumin/Creatinine panel in random Urine Microalbumin / creatinine, urine ratio Lab Routine Essential (primary) hypertension Type 2 diabetes mellitus without complication, without long-term current use of insulin (HCC) Expected: 05/28/2025 (Approximate), Expires: 05/28/2026 [facility] Comment on above: Expected: 05/28/2025 (Approximate), Expi res: 05/28/2026 Start: 05-28-2025 End: 05-28-2026 Thyrotropin [Units/volume] in Serum or Plasma TSH Lab Routine Anxiety and depression Expected: 05/28/2025 (Approximate), Expires: 05/28/2026 [facility] Comment on above: Expected: 05/28/2025 (Approximate), Expi res: 05/28/2026 Start: 05-28-2025 End: 05-28-2026 Urinalysis complete panel - Urine Urinalysis with reflex microscopic (clean catch) Lab Routine Essential (primary) hypertension Type 2 diabetes mellitus without complication, without long-term current use of insulin (HCC) Expected: 05/28/2025 (Approximate), Expires: 05/28/2026 [facility] Comment on above: Expected: 05/28/2025 (Approximate), Expi res: 05/28/2026 Start: 05-28-2025 Urine culture [facility] Start: 05-28-2025 End: 05-28-2025 Patient encounter procedure [facility] Comment on above: Restless leg syndrome (Primary Dx); ROLANDO (obstructive sleep apnea); Essential (primary) hypertension ; Gastroesophageal reflux disease without esophagitis; Edema of both lower extremities; Type 2 diabetes mellitus without complication, without long-term current use of insulin ([facility]); Class 2 severe obesity due to excess calories with serious comorbidity and body mass index (BMI) of 37.0 to 37.9 in adult ([facility] Mixed hyperlipidemia ; Anxiety and depression Start: 04-29-2025 Hemoglobin A1c measurement Diabetes: Hemoglobin A1C [facility] Start: 04-16-2025 Screening for malignant neoplasm of breast Mammogram [facility] Start: 03-15-2025 Urine screening for protein Diabetes: Urine Protein Screening [facility] Start: 02-25-2025 End: 02-25-2025 Patient encounter procedure [facility] Comment on above: Essential (primary) hypertension ([facility]) (Primary Dx); Gastroesophageal reflux disease without esophagitis; Type 2 diabetes mellitus without complication, without long-term current use of insulin; Iron deficiency anemia, unspecified iron deficiency anemia type; Anxiety and depression ([facility]) Start: 01-29-2025 Glaucoma screening Diabetes: Retinopathy Screening [facility] Start: 01-29-2025 End: 01-29-2025 Patient encounter procedure 01/29/2025 9:00 AM EDT Office Visit [facility] [address] [place] [place] [address] Brea Jj NP [address] [place] [address] [facility] Start: 12-31-2024 End: 12-31-2024 Patient encounter procedure [facility] Comment on above: Arrived Start: 12-26-2024 End: 12-26-2024 Patient encounter procedure 12/26/2024 9:40 AM EST Office Visit [facility] [address] [place] [address] Brea Jj NP [address] [place] [address] [facility] Start: 12-10-2024 End: 12-10-2024 Patient encounter procedure 12/10/2024 10:25 AM EST Office Visit [facility] [address] [place] [address] Ladonna Bang, MEDICAL TRANSLATOR-RUG CLEANER HELPER [address] [place] [address] Rash [facility] Comment on above: Rash Start: 12-06-2024 End: 12-06-2024 Patient encounter procedure 12/06/2024 9:25 AM EST Office Visit [facility] [address] [place] [address] SharmilaIsaiah kurtzie Adriana, MEDICAL TRANSLATOR-RUG CLEANER HELPER [address] [place], [place] [address] [facility] Start: 12-03-2024 End: 12-03-2025 Amylase [Enzymatic activity/volume] in Serum or Plasma Amylase Lab Routine Nausea and vomiting, unspecified vomiting type Diarrhea, unspecified type Weight loss, unintentional Expected: 12/03/2024 (Approximate), Expires: 12/03/2025 [facility] Comment on above: Expected: 12/03/2024 (Approximate), Expi res: 12/03/2025 Start: 12-03-2024 End: 12-03-2025 Bacteria identified in Urine by Culture Urine culture (clean catch) Microbiology Routine Nausea and vomiting, unspecified vomiting type Diarrhea, unspecified type Weight loss, unintentional Expected: 12/03/2024 (Approximate), Expires: 12/03/2025 [facility] Comment on above: Expected: 12/03/2024 (Approximate), Expi res: 12/03/2025 Start: 12-03-2024 End: 12-03-2025 CBC W Auto Differential panel - Blood CBC and differential Lab Routine Nausea and vomiting, unspecified vomiting type Diarrhea, unspecified type Weight loss, unintentional Expected: 12/03/2024 (Approximate), Expires: 12/03/2025 [facility] Work Phone: Comment on above: Expected: 12/03/2024 (Approximate), Expi res: 12/03/2025 Start: 12-03-2024 End: 12-03-2025 Clostridioides difficile toxin A+B tcdA+tcdB genes [Presence] in Stool by PANDA with probe detection Clostridium difficile,EIA Microbiology Routine Nausea and vomiting, unspecified vomiting type Diarrhea, unspecified type Weight loss, unintentional Expected: 12/03/2024 (Approximate), Expires: 12/03/2025 [facility] Comment on above: Expected: 12/03/2024 (Approximate), [...] loss, unintentional Expected: 12/03/2024 (Approximate), Expires: 12/03/2025 [facility] Comment on above: Expected: 12/03/2024 (Approximate), [...] loss, unintentional Expected: 12/03/2024 (Approximate), Expires: 12/03/2025 [facility] Comment on above: Expected: 12/03/2024 (Approximate), Expi res: 12/03/2025 Start: 12-03-2024 End: 12-03-2024 Patient encounter procedure 12/03/2024 9:00 AM EST Office Visit [facility] [address] [place] [address] Brea Jj, TOBIAS [address] [place] [address] Class 2 severe obesity due to excess calories with serious comorbidity and body mass index (BMI) of 37.0 to 37.9 in adult (CMS/HCC) (Primary Dx); Chronic respiratory failure with hypoxia (CMS/HCC); Morbid (severe) obesity due to excess calories (CMS/HCC); Essential (primary) hypertension (CMS/HCC); Rash; Tobacco dependence syndrome; Anxiety and depression (CMS/HCC) [facility] Comment on above: Class 2 severe obesity [...] procedure 10/15/2024 9:00 AM EST Office Visit [facility] [address] [place] [phone] Brea Jj NP [address] [place] [phone] [facility] Start: 09-15-2024 Hemoglobin A1c measurement Diabetes: Hemoglobin A1C [facility] Start: 08-30-2024 Influenza vaccination Influenza Vaccine (#1) [facility] Comment on above: Postponed from 07/01/2024 (Patient Does Not Have Time) Start: 07-24-2024 End: 07-24-2024 [facility] Comment on above: Arrived Start: 07-01-2024 Influenza vaccination Influenza Vaccine (#1) [facility] Start: 04-29-2024 Influenza vaccination Influenza Vaccine (#1) [facility] Comment on above: Postponed from 07/01/2023 (Patient Refus ed) Start: 04-14-2024 Screening for malignant neoplasm of breast Mammogram [facility] Start: 04-14-2024 Urine screening for protein Diabetes: Urine Protein Screening [facility] Start: 01-25-2024 Hemoglobin A1c measurement Diabetes: Hemoglobin A1C [facility] Start: 01-10-2024 End: 01-10-2024 Patient encounter procedure 01/10/2024 9:00 AM EDT Office Visit [facility] [address] [place] [address] Brea Jj NP [address] [place] [phone] [facility] Start: 1985 Screening for malignant neoplasm of cervix Pap Smear [facility] Start: 1964 Screening for malignant neoplasm of colon [facility] Patient Education Know your [facility] Work Phone: Immunizations Immunization Date Immunization Notes Care Provider Fa cili 08-13-2024 influenza virus vaccine, unspecified formulation Brea Анна CREW DISPATCHER Work Phone: [facility] 07-16-2024 influenza, seasonal, injectable Brea Zechariahz CREW DISPATCHER Work Phone: [facility] 08-12-2023 Influenza, Seasonal, Quadrivalent, Adjuvanted Brea Zechariahz CREW DISPATCHER Work Phone: [facility] 08-09-2022 influenza, injectabl e, quadrivalent, contains preservative Brea Aichholz CREW DISPATCHER Work Phone: [facility] 02-13-2021 COVID-19 mRNA, Comirnaty (Pfizer) Masrhall Mckeon MD Work Phone: [facility] 01-23-2021 COVID-19 mRNA, Comirnaty (Pfizer) Marshall Mckeon MD Work Phone: [facility] 07-18-2020 influenza, injectabl e, quadrivalent, contains preservative Brea Aichholz CREW DISPATCHER Work Phone: [facility] 07-01-2020 influenza, high dose seasonal, preservative-free Brea Aichholz CREW DISPATCHER Work Phone: [facility] Payers Date Payer Category Payer Self-pay 2025 Unknown [id number] 2020 Medicaid [id number] [place] [place] [id number] 2020-Present [address] [place] [id number] 2020 Medicaid (Managed Care) [place] [facility] [employer] [id number] 1964 Unknown [id number] 2.16.840.1.741191.3.579.2. 647 1964 Unknown [id number] 2.16.840.1.362580.3.579.2. 593 1964 Unknown [id number] 2.16.840.1.128187.3.579.2. 593 1964 Unknown [id number] 2.16.840.1.269710.3.579.2. 593 1964 Unknown [id number] 2.16.840.1.620300.3.579.2. 593 1964 Unknown [id number] 2.16.840.1.556136.3.579.2. 593 1964 Unknown [id number] 2.16.840.1.755140.3.579.2. 593 1964 Unknown [id number] 2.16.840.1.071266.3.579.2 593 1964 Unknown [id number] 2.16.840.1.334032.3.579.2. 593 1964 Unknown [id number] 2.16.840.1.915501.3.579.2. 727 1964 Unknown [id number] 2.16.840.1.879205.3.579.2. 727 1964 Unknown [id number] 2.16.840.1.497622.3.579.2. 727 1964 Unknown [id number] 2.16.840.1.135567.3.579.2. 727 1964 Unknown [id number] 2.16.840.1.201691.3.579.2. 727 1964 Unknown [id number] 2.16.840.1.668792.3.579.2. 727 1964 Unknown [id number] 2.16.840.1.822764.3.579.2. 727 1964 Unknown [id number] 2.16.840.1.481893.3.579.2. 727 1964 Unknown [id number] 2.16.840.1.710056.3.579.2. 1259 1964 Unknown [id number] 2.16.840.1.072683.3.579.2. 1258 1964 Unknown [id number] 2.16.840.1.860179.3.579.2. 1258 1964 Unknown [id number] 2.16.840.1.888770.3.579.2. 1258 1964 Unknown [id number] 2.16.840.1.471857.3.579.2. 1258 1964 Unknown [id number] 2.16.840.1.672104.3.579.2. 1258 1964 Unknown [id number] 2.16.840.1.412810.3.579.2. 1258 1964 Unknown [id number] 2.16.840.1.316159.3.579.2. 1258 1959 Unknown [id number] Unknown [id number] 2.16.840.1.387817.3.579.2. 531 Unknown [id number] 2.16.840.1.449256.3.579.2. 531 Social History Date Type Detail Facility Tobacco Former smoker [facility] Comment on above: 1/2 pack a day Tobacco smoking status [facility] Start: 04-21-2023 End: 12-05-2023 Sex Assigned At Female [facility] Start: 06-28-2023 End: 10-29-2024 Tobacco smoking status Ex-smoker (finding) [facility] Comment on above: Quit 06/19/23 1/2 pack a day History of tobacco use Current smoker [facility] History of tobacco use Cigarette Smoker [facility] Start: 10-19-2023 End: 12-05-2023 Cigarettes smoked current (pack per day) - Reported 1 [facility] Start: 10-19-2023 End: 10-29-2024 Tobacco use and exposure Smokeless tobacco non-user [facility] Start: 12-05-2023 End: 05-28-2025 Alcohol intake [...] Start: 04-20-2023 Sexual orientation Heterosexual (fin ding) [facility] Start: 07-23-2024 End: 01-14-2025 Tobacco smoking status Heavy tobacco smoker (finding) [facility] Start: 01-18-2019 Sex Female (finding) [facility] Start: 05-28-2025 End: 05-29-2025 Tobacco smoking status NHIS Smokes tobacco daily (finding) [facility] Medical Equipment Procedure Code Equipment Code Equipment Origin al Text Equipment Identifier Dates USE ONCE DAILY A S DIRECTED [id number] Start: 03-17-2023 Goals Date Patient Goal Desired Activity /State Functional Status Date Assessment Result Facility 05-29-2025 Functional status Patient at Baseline [facility] Work Phone: 05-28-2025 Functional status Patient at Baseline [facility] Work Phone: 09-25-2023 Functional Status N/A [facility] 09-08-2023 Functional Status N/A [facility] 06-16-2023 Functional Status N/A [facility] 06-16-2023 Functional Status [facility] Mental Status Date Assessment Result Facility 05-29-2025 Cognitive function Cognitive Sta tus Patient at Baseline [facility] Work Phone: 05-28-2025 Cognitive function Cognitive Sta tus Patient at Baseline [facility] Work Phone: Clinical Notes 06-17-2023 to 06-05-2025 Telephone Encounter - Annie Ruffin - 06/05/2025 8:58 AM EDTTelephone Encounter - Annie Ruffin - 06/05/2025 8:58 AM EDTLelias Jj NP - 05/30/2025 10:53 AM EDT Note Date & Type Note Facility 06-05-2025 Telephone encount er Note Mirtha is waiting for blood work orders to be sent to [facility]. She wants to have the lab work done today because her 's is tomorrow. [facility] 06-05-2025 Miscellaneous Notes Formattin g of this note might be different from the original. Mirtha is waiting for blood work orders to be sent to [facility]. She wants to have the lab work done today because her 's is tomorrow. documented in this encounter [facility] 05-30-2025 History of Presen t illness Narrative Associated Problem(s): Hypomagnesemia Start supplement Recheck in 10 days fluids documented in this encounter [facility] 05-29-2025 History and physi iraj note Note Date/Time May 29, 2025 3:27am [facility] [address] [place] [address] Hospitalist H&P Signed Patient: Aliya Moore MR#: [id number] : 1965 Acct:[id number] Age/Sex: 59 / F Adm Date: 5 Loc: Room: [address] [place] [address] Type: ADM IN Attending Dr: Marshall Mckeon MD Copies to: MD Brea Iqbal NP-DO Debbie Steele, MEDICAL TRANSLATOR~ HPI DATE OF EXAMINATION: 05/29/25 CHIEF COMPLAINT: Nausea, vomiting, diarrhea for 4 days HISTORY OF PRESENT ILLNESS: Ms. Moore is a 59-year-old female with a PMH of HTN, ROLANDO, does not wear CPAP, COPD, chronic hypoxic respiratory failure?home oxygen 3L NC at at bedtime and asneeded, tobacco dependence, RLS that presented to [facility] emergency room for kidney function [...] smoker, denies alcohol or illicit drug use. [facility] chart review?CT of the abdomen [...] saline, Zofran. Blood pressure on arrival to [place] was 83/51, heart rate was 97. Transferred here to [facility] as inpatient to the med/surg tele floor. Review of Systems Review of Systems Review of systems: A 10 point review of systems was obtained, negative unless noted in the HPI or below. [facility] Medical History (Updated 05/29/25 @ 01:21 by Debbie Alejandro APRN) Tobacco abuse disorder Problem List clean-up per request of Phys. EHR Cmte Smoker Problem List clean-up per request of Phys. EHR Cmte Sleep apnea Problem List clean-up per request of Phys. EHR Cmte Vomiting Problem List clean-up per request of Phys. [facility] Problem List clean-up per request of Phys. EHR Cmte Depression Problem List clean-up per request of Phys. EHR Cmte Anxiety Problem List clean-up per request of Phys. [facility] COPD (chronic obstructive pulmonary disease) Problem List clean-up per request of Phys. EHR Cmte Restless leg syndrome Problem List clean-up per request of Phys. EHR Cmte Hypertension Problem List clean-up per request of Phys. EHR Cmte Diabetes Problem List clean-up per request of Phys. [facility] Surgical History (Updated 05/29/25 @ 01:20 by Debbie Alejandro APRN) History of colonoscopy History of foot surgery Problem List clean-up per request of Phys. [facility] History of knee surgery Problem List clean-up per request of Phys. [facility] History of knee surgery as teenager Problem List clean-up per request of Phys. [facility] Family History Other COPD (chronic obstructive pulmonary [...] conditions?please call patient's PCP Brea Jj NP [phone] to obtain current med list HTN?hold lisinopril/HCTZ [...] signed by Misha Ochoa DO> 05/29/25 0327 [facility] Work Phone: 1(369) 739-214207-30-2025 [place] [address] Hospitalist H&P Signed Patient: Aliya Moore MR#: [id number] : 1965 Acct:[id number] Age/Sex: 59 / F Adm Date: 5 Loc: Room: [address] [place] [address] Type: ADM IN Attending Dr: Marshall Mckeon MD Copies to: MD Brea Iqbal, CREW DISPATCHER-C DO Debbie Kyle APRN~ HPI DATE OF EXAMINATION: 05/29/25 CHIEF COMPLAINT: Nausea, vomiting, diarrhea for 4 days HISTORY OF PRESENT ILLNESS: Ms. Moore is a 59-year-old female with a PMH of HTN, ROLANDO, does not wear CPAP, COPD, chronic hypoxic respiratory failure?home oxygen 3L NC at at bedtime and asneeded, tobacco dependence, RLS that presented to [facility] emergency room for kidney function [...] smoker, denies alcohol or illicit drug use. [facility] chart review?CT of the abdomen [...] saline, Zofran. Blood pressure on arrival to [place] was 83/51, heart rate was 97. Transferred here to [facility] as inpatient to the med/surg tele floor. Review of Systems Review of Systems Review of systems: A 10 point review of systems was obtained, negative unless noted in the HPI or below. [facility] Medical History (Updated 05/29/25 @ 01:21 by [...] List clean-up per request of Phys. [facility] Surgical History (Updated 05/29/25 @ 01:20 by Debbie Alejandro APRN) History of colonoscopy History of foot surgery Problem List clean-up per request of Phys. EHR Cmte History of knee surgery Problem List clean-up per request of Phys. EHR Cmte History of knee surgery as teenager Problem List clean-up per request of Phys. EHR Cmte Family History Other COPD (chronic obstructive pulmonary [...] conditions?please call patient's PCP Brea Jj NP [phone] to obtain current med list HTN?hold lisinopril/HCTZ [...] 0104 Signed By: 05/29/25 0126 05/29/25 0327 [facility]07-30-2025 Evaluation note* Diagnosis Onset Date Resolution Status Admit Date LAINA (acute kidney injury) acute May 28, 2025 11:18pm Diarrhea acute May 28 11:18pm Nausea and vomiting acute May 28, 2025 11:18pm [facility] Work Phone: 1(358) 151-501007-29-2025 History of Present illness Narrative* Brea Jj [...] from cardiac procedure, he has been in [place] several weeks now, she only goes up [...] comorbidity in adult ([facility]) 10/19/2023 Mixed hyperlipidemia 10/12/2023 ROLANDO (obstructive sleep apnea) Other insomnia 10/19/2023 Primary hypertension 10/12/2023 Restless leg syndrome 10/12/2023 Type 2 diabetes mellitus without complication, without long-term current use of insulin ([facility]) 10/19/2023 Past [...] comorbidity in adult ([facility]) Discussed with patient their BMI (actual, verses recommended). We have also discussed lifestyle modifications: attempts to perform physical activity as chronic conditions allow, also to monitor dietary intake: increasing protein/fruits/veggies and lowering carb intake (unless contraindicated). Limit sodas, juices, and sugary drinks. Type 2 diabetes mellitus without complication, without long-term current use of insulin ([facility]) Check blood sugars daily, notify [...] comorbidity in adult ([facility]) Discussed with patient their BMI (actual, verses recommended). We have also discussed lifestyle modifications: attempts to perform physical activity as chronic conditions allow, also to monitor dietary intake: increasing protein/fruits/veggies and lowering carb intake (unless contraindicated). Limit sodas, juices, and sugary drinks. * Brea Jj NP - 05/28/2025 6:18 AM EDTAssociated Problem(s): Type 2 diabetes mellitus without complication, without long-term current useof insulin ([facility]) Check blood sugars daily, notify [...] syndrome Current medication: pramipexole documented in this [facility]07-29-2025 Instructions* Patient Instructions* Brea Jj NP - 05/28/2025 9:00 AM EDT Check lab , Hydrate with electrolytes documented in this encounterNort[facility] [id number] [facility] Chief Complaint: Patient here [...] transplant and is being evaluated at the [facility]. She has occasional chest pain at rest [...] obstructive pulmonary disease) ([facility]), Diabetes mellitus ([facility]), Hyperlipidemia, Hypertension, [...] are 2+ bilaterally. N (more content not included)...[facility]04-28-2025 History of Present illness Narrative* Brea Jj NP - 02/25/2025 10:31 AM EDTAssociated Problem(s): COPD exacerbation (CMS/[facility]) In Er 02/21/25 Currently on meds for this If worsening in symptoms please call dr gaines's office If severe sxs go to ER [...] last year: no Specialist: Rafaela, GI, cardiology, mold capper Diabetes She presents for her follow-up diabetic [...] being taken. She does not see a blending machine operator.Eye exam is current. Hypertension This is a [...] Anxiety and depression ([facility]) 10/12/2023 Arthritis Class 2 severe obesity due to excess calories with serious comorbidity in adult ([facility]) 10/19/2023 Mixed hyperlipidemia ([facility]) 10/12/2023 ROLANDO (obstructive sleep apnea) Other insomnia 10/19/2023 Primary hypertension ([facility]) 10/12/2023 Restless [...] If worsening in symptoms please call dr gaines's office If severe sxs go to ER Other Visit Diagnoses Primary hypertension (CMS/HCC) Relevant Medications lisinopril-hydroCHLOROthiazide 20-25 MG tablet * Brea Jj NP - 02/25/2025 6:41 AM EDTAssociated Problem(s): [...] changes Current med: lisinopril/hydrochlorothiazide documented in this [facility]04-28-2025 Instructions* Patient Instructions* Brea Jj NP - 02/25/2025 9:40 AM EDT No changes in med doses Finish meds from COPD flare, if not better call dr Gaines's office A1c 6.1% documented in this [facility]03-03-2025 History of Present illness Narrative* CAROLE Villanueva [...] Next Visit: 1 year/prn documented in this [facility]02-26-2025 History of Present illness Narrative* Brea Jj NP - 12/26/2024 10:23 AM ESTAssociated Problem(s): Anxiety and depression (CMS/HCC) No med dose changes, would like counseling Refer to [facility] * AVI LONG - 12/26/2024 9:40 [...] Anxiety and depression ([facility]) 10/12/2023 Arthritis Class 2 severe obesity due to excess calories with serious comorbidity in adult ([facility]) 10/19/2023 Mixed hyperlipidemia ([facility]) 10/12/2023 ROLANDO (obstructive sleep apnea) Other insomnia 10/19/2023 Primary hypertension ([facility]) 10/12/2023 Restless leg syndrome 10/12/2023 Type 2 diabetes mellitus without complication, without long-term current use of insulin ([facility]) 10/19/2023 Past [...] dose changes, would like counseling Refer to [facility] Essential (primary) hypertension ([facility]) Please check blood pressure daily [...] of the risks of continued smoking: stroke, [place], all forms of cancer, lung disease, and [...] Dr Gaines Gastroesophageal reflux disease without esophagitis Last appt started Pantoprazole Irritable bowel syndrome with diarrhea Stool sample results reviewed I have referred her to GI in [facility] trial Xifaxin for for IBS-D Has failed: immmodium, pepto Sxs could also be gallbladder related as well #3 samples: lot: [id number] exp 04/26 Relevant Medications rifAXIMin (Xifaxan) 550 MG tablet Occult blood positive stool Neg cultures +stool for OB Referred to GI Centrilobular emphysema (CMS/HCC) Continues with pulmonary Rafaela Cont current inhalers * Brea Jj NP - 12/26/2024 6:43 AM ESTAssociated Problem(s): Tobacco dependence syndrome The patient has been advised of the risks of continued smoking: stroke, [place], all forms of cancer, lung disease, and [...] comorbidity in adult ([facility]) Discussed with patient their BMI [...] I have referred her to GI in [facility] trial Xifaxin for for IBS-D Has failed: immmodium, pepto Sxs could also be gallbladder related as well #3 samples: lot: [id number] exp 04/26 * Brea Jj NP - 12/26/2024 6:40 AM ESTAssociated Problem(s): Essential (primary) hypertension ([facility]) Please check blood pressure daily and record DASH diet Limit caffeine Take medication as directed Contact office if chest pain, pressure, dizziness, shortness of breath, swelling legs Recommend slow position changes Current med: lisinopril/hydrochlorothiazide * Brea Jj NP - 12/26/2024 6:40 AM ESTAssociated Problem(s): Chronic respiratory failure with hypoxia (CMS/HCC) Has oxygen therapy Continue inhalers Follows with Dr Gaines * Brea Jj NP - 12/26/2024 6:39 AM ESTAssociated Problem(s): Centrilobular emphysema (CMS/HCC) Continues with ronni Gaines Cont current inhalers documented in this [facility]02-26-2025 Instructions* Patient Instructions* Brea Jj NP - 12/26/2024 9:40 AM EST Xifaxin: take 3 times daily, you will take a total of 14 days Referral to [facility] in [place] documented in this encounterNortheast [facility] Health [id number] History of Present illness Narrative* Ladonna Bang, AWILDA-RUG CLEANER HELPER - 12/10/2024 10:25 AM EST Images from [...] 3-4 weeks, follow up documented in this encounterNortheast [facility] Rural Health [id number] History of Present illness Narrative* Brea Jj [...] Anxiety and depression ([facility]) 10/12/2023 Arthritis Class 2 severe obesity due to excess calories with serious comorbidity in adult ([facility]) 10/19/2023 Mixed hyperlipidemia ([facility]) 10/12/2023 ROLANDO (obstructive sleep apnea) Other insomnia 10/19/2023 Primary hypertension ([facility]) 10/12/2023 Restless leg syndrome 10/12/2023 Type 2 diabetes mellitus without complication, without long-term current use of insulin ([facility]) 10/19/2023 Past [...] Anxiety and depression ([facility]) Many life stressors with her health, and [...] comorbidity in adult ([facility]) Discussed with patient their BMI [...] failure with hypoxia ([facility]) Has oxygen therapy Continue inhalers Follows with [...] reviewed GAYLE 7=4 PHQ 9=5 * Brea jJ NP - 12/03/2024 6:10 AM ESTAssociated Problem(s): [...] Follows with Dr Gaines documented in this encounterNortheast [facility] Rural Health [id number] Instructions* Patient Instructions* Brea Jj NP - 12/03/2024 9:00 AM EST Check labs and stool samples Follow up in 3 weeks Dermatology referral as well documented in this encounterNortheast [facility] Rural Health [id number] History of Present illness Narrative* Brea Jj [...] being taken. She does not see a blending machine operator.Eye exam is current. Hypertension This is a [...] Anxiety and depression ([facility]) 10/12/2023 Arthritis Class 2 severe obesity due to excess calories with serious comorbidity in adult ([facility]) 10/19/2023 Mixed hyperlipidemia ([facility]) 10/12/2023 ROLANDO (obstructive sleep apnea) Other insomnia 10/19/2023 Primary hypertension ([facility]) 10/12/2023 Restless leg syndrome 10/12/2023 Type 2 diabetes mellitus without complication, without long-term current use of insulin ([facility]) 10/19/2023 Past [...] use of insulin ([facility]) Check blood sugars daily, notify [...] current useof insulin ([facility]) Check blood sugars daily, notify [...] comorbidity in adult ([facility]) Discussed with patient their BMI [...] changes Current med: lisinopril/hydrochlorothiazide, documented in this encounterNortheast Missouri Rural Health [id number] Instructions* Patient Instructions* Brea Jj NP - 10/29/2024 6:00 PM EST No dose changes in meds Will trial steroid cream twice a day to both legs for 14 days, if not better call me documented in this [facility]09-24-2024 History of Present illness Narrative* Brea Jj [...] Anxiety and depression ([facility]) 10/12/2023 Arthritis Class 2 severe obesity due to excess calories with serious comorbidity in adult ([facility]) 10/19/2023 Mixed hyperlipidemia ([facility]) 10/12/2023 ROLANDO (obstructive sleep apnea) Other insomnia 10/19/2023 Primary hypertension ([facility]) 10/12/2023 Restless leg syndrome 10/12/2023 Type 2 diabetes mellitus without complication, without long-term current use of insulin ([facility]) 10/19/2023 Past [...] MG tablet Other Visit Diagnoses Primary hypertension ([facility]) Relevant Medications lisinopril-hydroCHLOROthiazide 20-25 MG tablet documented in this encounterNortheast Missouri Rural Health [id number] NoteOncology Progress Note Chief Complaint Acute PE; [...] female cigarette smoker with history of hypertension, poq-lqbcenh-brghnedsv diabetes mellitus, obesity,chronic hypoxic respiratory failure on [...] cramping a lot. has had colonoscopy at [facility] 07/23/24 enregy has been stable, pretty [...] [address] scan at [facility] by her pcp, told everything looks good, no concerns. Plans these yearly for surveillance 3. iron deficiency anemia December 2023 iron studies low, will initiate oral iron supplementation. Will repeat iron studies in about 6 months, (more content not included)...[facility]03-20-2024 Hospital Discharge instructions Follow Up Care 01/18/2024 12:42:29 With:Swapna ANGUIANO, Mariama Chen, ONC Address: [facility] [address] [place] [phone] When: Unknown Comments:cbc, cmp, iron studies in 6mo and 1yrfollow-up in 1yrcontinue ferrous sulfate 325mg daily [facility] 03-18-2024 Evaluation + Plan note Diagnostic Tests Pending * Methylmalonic Acid 01/16/24 [facility]02-05-2024 History of Present illness Narrative* Brea [...] Anxiety and depression ([facility]) 10/12/2023 Arthritis Class 2 severe obesity due to excess calories with serious comorbidity in adult ([facility]) 10/19/2023 COPD (chronic obstructive pulmonary disease) ([facility]) Fibrocystic breast disease Mixed hyperlipidemia ([facility]) 10/12/2023 ROLANDO (obstructive sleep apnea) Other insomnia 10/19/2023 Primary hypertension ([facility]) 10/12/2023 Restless leg syndrome 10/12/2023 Type 2 diabetes mellitus without complication, without long-term current use of insulin ([facility]) 10/19/2023 Past [...] Pneuomovax BMI 37.0-37.9, adult documented in this [facility] [id number] Hospital Discharge instructions Patient Education 09/25/2023 21:57:45 [...] Follow these instructions at home: Medicines Take lkdb-vja-fdgiezt and prescription medicines only as told by [...] important. Where to find more information [employer] and [employer]estive and Kidney Diseases: [...] provider. Document Revised: 09/08/2020 Document Reviewed: 09/08/2020 YouEarnedIt Patient Education 2022 Fourandhalf. Follow Up Care 09/25/2023 18:11:16 With:[facility] Address: [address] [place] [address] 3, [address] Floor, [address] [place] [address] [phone] Business (1) When:09/28/2023 21:47:26 With:BREA JJ Address: [address] [place] [phone] Business (1) When:Within 3 Day(s) [facility]11-26-2023 Evaluation + Plan noteExtracted from: Title:ED [...] Comprehensive Metabolic Panel 12/27/23 * D-Dimer 12/27/23 [facility]11-09-2023 Hospital Discharge instructions Patient Education 09/08/2023 [...] Follow these instructions at home: Medicines Take csal-cbp-ndikqat and prescription medicines only as told by [...] Document Reviewed: 12/31/2021 Elsevier Patient Education 2022 Fourandhalf. Follow Up Care 09/08/2023 16:32:40 With:BREA JJ Address: [address] [place] [address] [phone] Business (1) When:Within 3 Day(s) [facility]11-09-2023 Evaluation + Plan noteExtracted from: Title:ED [...] Comprehensive Metabolic Panel 12/27/23 * D-Dimer 12/27/23 [facility]09-19-2023 Hospital Discharge instructions Follow Up Care 07/19/2023 10:53:55 With:Swapna ANGUIANO, Mariama Chen, ONC Address: [address] [address] [phone] When: Unknown Comments:iron studies, b12, folate, mma todayfollow-up in 6mo with CREW DISPATCHER [facility]08-29-2023 Hospital Discharge instructions Follow Up Care 06/28/2023 11:35:56 With:Roby Bob Address: [address] [address] [phone] Business (1) When: Unknown Comments:Continue ELiquis for 6 months total.D dimer, CBCD and CMP end of December 2023.RTC end of December,sooner if new SOB or CP or Leg pain or swelling or bleeding. [facility]08-18-2023 Hospital Discharge instructions Patient Education 06/17/2023 [...] Follow these instructions at home: Medicines Take svaf-aun-frskxyy and prescription medicines only as told by [...] is important. Where to find more information [employer]: www.lung.org Centers for Disease Control [...] provider. Document Revised: 09/18/2021 Document Reviewed: 09/18/2021 YouEarnedIt Patient Education 2022 Fourandhalf. Follow Up Care 06/16/2023 15:48:06 With:BREA JJ Address: [address] [facility] [place] [address] [phone] Business (1) When:1 week Comments:A voice message is left with this office with your information so they can call you for a follow upappiontment. Please call them if you do not hear from them in a few days. Thank you. With:Ezekiel Anahi Address: [facility] [address] [place] [address]- When:06/28/2023 11:00:00 [facility]08-18-2023 Evaluation + Plan noteExtracted from: Title:Discharge [...] puff(s), Inhalation, BID fluticasone Nasal 0.05 mg/inh Cataract, 2 spray(s), Nasal, Daily furosemide 20 mg Tab, 20 mg= 1 tab(s), Oral, Daily gabapentin 300 mg Cap, 300 mg= 1 cap(s), Oral, BID hydrochlorothiazide-lisinopril 25 mg-20 mg Tab, 1 tab(s), Oral, Daily lamotrigine 25 mg Tab, 25 mg= 1 tab(s), Oral, BID pioglitazone 15 mg Tab, 15 mg= 1 tab(s), Oral, Daily Potassium Chloride (Crk-Ehjy-Axf 10) 10 mEq oral tablet, extended release [...] [facility] [address] [place] [address]- Additional Instructions: BREA JJ Within 1 week [address] [place] [address] [phone] Business (1) Additional Instructions: A voice message is left with this office with your information so they can call you for a follow up appiontment. Please call them if you do not hear from them in a few days. Thank you. Pulmonary Embolism Extracted from: Title:Admission H & P Author:JANETTE BOOTHE, Alex Date:06/16/23 57-year-old female cigarette smoker with history of hypertension, vje-wwqxjkm-qadfpyhtf diabetes mellitus, obesity, chronic hypoxic respiratory failure [...] Ordered: Initial Hospital Care/Day High 75 Minutes 40195 2. Acute pulmonary embolism (I26.99: Other pulmonary [...] Ordered: Initial Hospital Care/Day High 75 Minutes 29840 3. Sinus tachycardia (R00.0: Tachycardia, unspecified) Secondary to above acute pulmonary embolism. Monitor on telemetry. Ordered: Initial Hospital Care/Day High 75 Minutes 46598 4. COPD without exacerbation (J44.9: Chronic obstructive pulmonary disease, unspecified) Supportive care. Continue on nebulizer treatments. Ordered: Initial Hospital Care/Day High 75 Minutes 17779 5. Hypertension (I10: Essential (primary) hypertension) We will verify home medications and resume accordingly. Ordered: Initial Hospital Care/Day High 75 Minutes 89341 6. Diabetes mellitus (E11.9: Type 2 diabetes [...] deep vein thrombosis (DVT) prophylaxis (Z79.899: Other extermination supervisor (current) drug therapy) Eliquis. The patient will [...] made to ensure accuracy. However inadvertent computerized dehairing machine tender errors may be present. Alex Barrientos. Hospitalist. [...] deep vein thrombosis (DVT) prophylaxis (Z79.899: Other residential (current) drug therapy) 4. COPD without exacerbation [...] Appointment Type:ONC Office Visit New 45 (FT) [facility]08-18-2023 Hospital Discharge instructions Follow Up Care 06/17/2023 09:42:41 With:Roby Bob Address: [facility] [address] [place], [place] [address] [address] [phone] Business (1) When: Unknown Comments:THrombophilia labs now with D dimer.D dimer in 3 weeks if D dimer from now is still high.Continue Eliquis 5 mg twice daily for minimum of 6 months.RTC in 3 weeks for results. [facility] Future Appointments Appointment Date:07/19/2023 10:00:00 AM Scheduled Provider: Location:.ONCOLOGY Appointment Type:ONC Office Visit 30 (FT) [facility] Future Appointments Appointment Date:01/16/2024 09:00:00 AM Scheduled Provider: Location:.ONCOLOGY Appointment Type:ONC Office Visit 30 (FT) Future Scheduled Tests Laboratory* CBC w/ Auto Diff 12/27/23 * Comprehensive Metabolic Panel 12/27/23 * D-Dimer 12/27/23 [facility] Future Appointments Appointment Date:01/16/2024 11:30:00 AM Scheduled Provider:Mariama Moore Location:FT.ONCOLOGY Appointment Type:ONC Office Visit 30 (FT) [facility] Future Appointments Appointment [...] 01/20/25 * Transferrin 07/23/24 * Transferrin 01/20/25 [facility] evaluation + Plan note Future Appointments Appointment Date:07/23/2024 10:40:00 AM Scheduled Provider:Mariama Moore Location:FT.ONCOLOGY Appointment Type:ONC Office Visit 30 (FT) [facility] evaluation + Plan note Future Appointments [...] 01/20/25 Radiology* NM Gastric Emptying Study 01/14/25 [facility] evaluation note* Diagnosis Other insomnia- Primary ROLANDO (obstructive sleep apnea) Obstructive sleep apnea (adult) (pediatric) COPD mixed type ([facility]/HCC) Tobacco dependence syndrome Tobacco use disorder BMI 37.0-37.9, adult Anxiety and depression ([facility]) Restless leg syndrome Restless legs syndrome (RLS) documented in this encounter [facility]* Diagnosis Anxiety and depression ([facility])- Primary Type 2 diabetes mellitus without complication, without long-term current use of insulin ([facility]) Arthritis Unspecified arthropathy, site unspecified documented in this encounter [facility]* Diagnosis Type 2 diabetes mellitus without complication, without long-term current use of insulin (CMS/HCC)- Primary Atherosclerosis of aorta ([facility]/HCC) Atherosclerosis of aorta documented in this encounter [facility]* Diagnosis Anxiety and depression (CMS/HCC)- Primary Other insomnia Class 2 severe obesity due to excess calories with serious comorbidity and body mass index (BMI) of 37.0 to 37.9 in adult ([facility]) Type 2 diabetes mellitus without complication, without long-term current use of insulin (CMS/[facility]) ROLANDO (obstructive sleep apnea) Obstructive sleep apnea (adult) (pediatric) Other insomnia- Primary ROLANDO (obstructive sleep apnea) Obstructive sleep apnea (adult) (pediatric) COPD mixed type (CMS/HCC) Tobacco dependence syndrome Tobacco use disorder BMI 37.0-37.9, adult Anxiety and depression (CMS/HCC) Restless leg syndrome Restless legs syndrome (RLS) Other insomnia- Primary Anxiety and depression (CMS/[facility]) Restless leg syndrome Restless legs syndrome (RLS) Acute non-recurrent maxillary sinusitis Right upper quadrant abdominal pain Other fatigue- Primary Morbid (severe) obesity due to excess calories (CMS/HCC) Essential (primary) hypertension (CMS/[facility]) Unspecified essential hypertension Body mass index (BMI) 37.0-37.9, adult Chronic respiratory failure with hypoxia (CMS/[facility]) Type 2 diabetes mellitus with [...] syndrome Restless legs syndrome (RLS) Primary hypertension (CMS/[facility]) Unspecified essential hypertension Type 2 diabetes mellitus without complication, without long-term current use of insulin (CMS/[facility]) Other insomnia Osteopenia after menopause- Primary documented in this encounter [facility]* Diagnosis Anxiety and depression (CMS/HCC)- Primary Other insomnia Class 2 severe obesity due to excess calories with serious comorbidity and body mass index (BMI) of 37.0 to 37.9 in adult ([facility]/HCC) Type 2 diabetes mellitus without complication, without [...] Essential (primary) hypertension ([facility]) Unspecified essential hypertension Body mass index (BMI) 37.0-37.9, adult Chronic respiratory failure with hypoxia ([facility]) Type 2 diabetes mellitus with other specified complication ([facility]) Atherosclerosis of aorta (CMS/HCC) Atherosclerosis of aorta Mixed hyperlipidemia (CMS/HCC) Mixed hyperlipidemia Anxiety and depression (CMS/HCC) Restless leg syndrome Restless legs syndrome (RLS) Primary hypertension ([facility]) Unspecified essential hypertension Type 2 diabetes mellitus without complication, without long-term current use of insulin ([facility]) Right upper quadrant abdominal pain COPD mixed type (CMS/HCC) Gastroesophageal reflux disease without esophagitis Esophageal reflux Anxiety and depression (CMS/HCC)- Primary Mixed hyperlipidemia (CMS/HCC) Mixed hyperlipidemia Restless leg syndrome Restless legs syndrome (RLS) Primary hypertension ([facility]) Unspecified essential hypertension Type 2 diabetes mellitus without complication, without long-term current use of insulin ([facility]/HCC) Other insomnia Mixed hyperlipidemia (CMS/HCC) Mixed hyperlipidemia documented in this encounter [facility] HealthcareEvaluation [facility]* Diagnosis Anxiety and depression (CMS/HCC)- Primary Other insomnia Class 2 severe obesity due to excess calories with serious comorbidity and body mass index (BMI) of 37.0 to 37.9 in adult ([facility]) Type 2 diabetes mellitus without complication, without long-term current use of insulin (CMS/HCC) ROLANDO (obstructive sleep apnea) Obstructive sleep apnea (adult) (pediatric) Other insomnia- Primary ROLANDO (obstructive sleep apnea) Obstructive sleep apnea (adult) (pediatric) COPD mixed type (CMS/HCC) Tobacco dependence syndrome Tobacco use disorder BMI 37.0-37.9, adult Anxiety and depression ([facility]) Restless leg syndrome Restless legs syndrome (RLS) Other insomnia- Primary Anxiety and depression ([facility]) Restless leg syndrome Restless legs syndrome (RLS) Acute non-recurrent maxillary sinusitis Right upper quadrant abdominal pain Other fatigue- Primary Morbid (severe) obesity due to excess calories ([facility]) Essential (primary) hypertension ([facility]) Unspecified essential hypertension Body mass index (BMI) 37.0-37.9, adult Chronic respiratory failure with hypoxia ([facility]) Type 2 diabetes mellitus with other specified complication ([facility] Atherosclerosis of aorta ([facility]) Atherosclerosis of aorta Mixed hyperlipidemia ([facility]) Mixed hyperlipidemia Anxiety and depression ([facility]) Restless leg syndrome Restless legs syndrome (RLS) Primary hypertension ([facility]) Unspecified essential hypertension Type 2 diabetes mellitus without complication, without long-term current use of insulin ([facility]) Right upper quadrant abdominal pain COPD mixed type ([facility]) Gastroesophageal reflux disease without esophagitis Esophageal reflux Anxiety and depression ([facility])- Primary Mixed hyperlipidemia ([facility]) Mixed hyperlipidemia Restless leg syndrome Restless legs syndrome (RLS) Primary hypertension ([facility]) Unspecified essential hypertension Type 2 diabetes mellitus without complication, without long-term current use of insulin ([facility]) Other insomnia Gastroesophageal reflux disease without esophagitis Esophageal reflux documented in this encounter [facility]* Diagnosis Gastroesophageal reflux disease without esophagitis Esophageal reflux documented in this encounter [facility]* Diagnosis Anxiety and depression ([facility])- Primary Mixed hyperlipidemia ([facility]) Mixed hyperlipidemia Restless leg syndrome Restless legs syndrome (RLS) Primary hypertension ([facility]) Unspecified essential hypertension Type 2 diabetes mellitus without complication, without long-term current use of insulin ([facility]) Other insomnia documented in this encounter [facility]Evaluation [facility]* Diagnosis Anxiety and depression ([facility])- Primary Other insomnia Class 2 severe obesity due to excess calories with serious comorbidity and body mass index (BMI) of 37.0 to 37.9 in adult ([facility]) Type 2 diabetes mellitus without complication, without long-term current use of insulin ([facility]) ROLANDO (obstructive sleep apnea) Obstructive sleep apnea (adult) (pediatric) Other insomnia- Primary ROLANDO (obstructive sleep apnea) Obstructive sleep apnea (adult) (pediatric) COPD mixed type (CMS/HCC) Tobacco dependence syndrome Tobacco use disorder BMI 37.0-37.9, adult Anxiety and depression ([facility]/HCC) Restless leg syndrome Restless legs syndrome (RLS) Other insomnia- Primary Anxiety and depression (CMS/HCC) Restless leg syndrome Restless legs syndrome (RLS) Acute non-recurrent maxillary sinusitis Right upper quadrant abdominal pain Other fatigue- Primary Morbid (severe) obesity due to excess calories (CMS/[facility]) Essential (primary) hypertension (CMS/HCC) Unspecified essential hypertension Body mass index (BMI) 37.0-37.9, adult Chronic respiratory failure with hypoxia ([facility]) Type 2 diabetes mellitus with other specified complication ([facility]) Atherosclerosis of aorta (CMS/HCC) Atherosclerosis of aorta Mixed hyperlipidemia (CMS/HCC) Mixed hyperlipidemia Anxiety and depression (CMS/[facility]) Restless leg syndrome Restless legs syndrome (RLS) Primary hypertension ([facility]) Unspecified essential hypertension Type 2 diabetes mellitus without complication, without long-term current use of insulin ([facility]) Right upper quadrant abdominal pain COPD mixed type (CMS/HCC) Gastroesophageal reflux disease without esophagitis Esophageal reflux Anxiety and depression ([facility])- Primary Mixed hyperlipidemia (CMS/HCC) Mixed hyperlipidemia Restless leg syndrome Restless legs syndrome (RLS) Primary hypertension ([facility]) Unspecified essential hypertension Type 2 diabetes mellitus without complication, without long-term current use of insulin ([facility]) Other insomnia Rash- Primary Rash and other nonspecific skin eruption Essential (primary) hypertension (CMS/HCC) Unspecified essential hypertension Edema of both lower extremities Class 2 severe obesity due to excess calories with serious comorbidity and body mass index (BMI) of 37.0 to 37.9 in adult ([facility]) ROLANDO (obstructive sleep apnea) Obstructive sleep apnea (adult) (pediatric) Type 2 diabetes mellitus without complication, without long-term current use of insulin ([facility]) Gastroenteritis Other and unspecified noninfectious gastroenteritis and colitis Iron deficiency anemia, unspecified iron deficiency anemia type documented in this encounter [facility] HealthcareEvaluation note* Diagnosis Anxiety and depression ([facility]/HCC)- Primary Other insomnia Class 2 severe obesity due to excess calories with serious comorbidity and body mass index (BMI) of 37.0 to 37.9 in adult ([facility]) Type 2 diabetes mellitus without [...] Morbid (severe) obesity due to excess calories (CMS/[facility]) Essential (primary) hypertension (CMS/HCC) Unspecified essential hypertension Body mass index (BMI) 37.0-37.9, adult Chronic respiratory failure with hypoxia (CMS/[facility]) Type 2 diabetes mellitus with other specified complication (CMS/[facility]) Atherosclerosis of aorta (CMS/HCC) Atherosclerosis of aorta Mixed hyperlipidemia (CMS/HCC) Mixed hyperlipidemia Anxiety and depression (CMS/HCC) Restless leg syndrome Restless legs syndrome (RLS) Primary hypertension (CMS/HCC) Unspecified essential hypertension Type 2 diabetes mellitus without complication, without long-term current use of insulin (CMS/[facility]) Right upper quadrant abdominal pain COPD mixed type (CMS/HCC) Gastroesophageal reflux disease without esophagitis Esophageal reflux Anxiety and depression (CMS/HCC)- Primary Mixed hyperlipidemia (CMS/HCC) Mixed hyperlipidemia Restless leg syndrome Restless legs syndrome (RLS) Primary hypertension (CMS/HCC) Unspecified essential hypertension Type 2 diabetes mellitus without complication, without long-term current use of insulin (CMS/[facility]) Other insomnia Rash- Primary Rash and other nonspecific skin eruption Essential (primary) hypertension (CMS/HCC) Unspecified essential hypertension Edema of both lower extremities Class 2 severe obesity due to excess calories with serious comorbidity and body mass index (BMI) of 37.0 to 37.9 in adult (CMS/HCC) ROLANDO (obstructive sleep apnea) Obstructive sleep apnea (adult) (pediatric) Type 2 diabetes mellitus without complication, without long-term current use of insulin (CMS/[facility]) Gastroenteritis Other and unspecified noninfectious gastroenteritis and colitis Iron deficiency anemia, unspecified iron deficiency anemia type Weight loss, unintentional- Primary Loss of weight Chronic respiratory failure with hypoxia (CMS/[facility]) Morbid (severe) obesity due to excess calories (CMS/HCC) Essential (primary) hypertension (CMS/HCC) Unspecified essential hypertension Class 2 severe obesity due to excess calories with serious comorbidity and body mass index (BMI) of 37.0 to 37.9 in adult (CMS/[facility]) Rash Rash and other nonspecific [...] 37.9 in adult ([facility]) Type 2 diabetes mellitus without complication, without long-term current use of insulin (CMS/[facility]) ROLANDO (obstructive sleep apnea) Obstructive [...] 37.0-37.9, adult Chronic respiratory failure with hypoxia (CMS/[facility]) Type 2 diabetes mellitus with [...] Anxiety and depression ([facility])- Primary Mixed hyperlipidemia ([facility]) Mixed hyperlipidemia Restless leg syndrome Restless legs syndrome (RLS) Primary hypertension ([facility] [facility]) Unspecified essential hypertension Type 2 diabetes mellitus without complication, without long-term current use of insulin ([facility]) Other insomnia Rash- Primary Rash and other nonspecific skin eruption Essential (primary) hypertension ([facility]) Unspecified essential hypertension Edema of both lower extremities Class 2 severe obesity due to excess calories with serious comorbidity and body mass index (BMI) of 37.0 to 37.9 in adult ([facility] [place]) ROLANDO (obstructive sleep apnea) Obstructive sleep apnea (adult) (pediatric) Type 2 diabetes mellitus without complication, without long-term current use of insulin ([facility]) Gastroenteritis Other and unspecified noninfectious gastroenteritis and colitis Iron deficiency anemia, unspecified iron deficiency anemia type Weight loss, unintentional- Primary Loss of weight Chronic respiratory failure with hypoxia ([facility]) Morbid (severe) obesity due to excess calories ([facility]) Essential (primary) hypertension ([facility]) Unspecified essential hypertension Class 2 severe obesity due to excess calories with serious comorbidity and body mass index (BMI) of 37.0 to 37.9 in adult ([facility]) Rash Rash and other nonspecific skin eruption Tobacco dependence syndrome Tobacco use disorder Anxiety and depression ([facility]) Mixed hyperlipidemia ([facility]) Mixed hyperlipidemia Iron deficiency anemia, unspecified iron deficiency anemia type Restless leg syndrome Restless legs syndrome (RLS) Primary hypertension ([facility]) Unspecified essential hypertension Gastroesophageal reflux disease without esophagitis Esophageal reflux Type 2 diabetes mellitus without complication, without long-term current use of insulin ([facility]) Edema of both lower extremities Nausea and vomiting, unspecified vomiting type Diarrhea, unspecified type Anxiety and depression ([facility]) Restless leg syndrome Restless legs syndrome (RLS) Other insomnia documented in this encounter [facility]* Diagnosis Anxiety and depression ([facility])- Primary Other insomnia Class 2 severe obesity due to excess calories with serious comorbidity and body mass index (BMI) of 37.0 to 37.9 in adult ([facility]) Type 2 diabetes mellitus without complication, without long-term current use of insulin ([facility]) ROLANDO (obstructive sleep apnea) Obstructive [...] Morbid (severe) obesity due to excess calories (CMS/[facility]) Essential (primary) hypertension ([facility]/HCC) Unspecified essential hypertension Body mass index (BMI) 37.0-37.9, adult Chronic respiratory failure with hypoxia ([facility]) Type 2 diabetes mellitus with other specified complication ([facility]) Atherosclerosis of aorta (CMS/HCC) Atherosclerosis of aorta Mixed hyperlipidemia (CMS/HCC) Mixed hyperlipidemia Anxiety and depression (CMS/[facility]) Restless leg syndrome Restless legs syndrome (RLS) Primary hypertension ([facility]) Unspecified essential hypertension Type 2 diabetes mellitus without complication, without long-term current use of insulin ([facility]) Right upper quadrant abdominal pain COPD mixed type (CMS/HCC) Gastroesophageal reflux disease without esophagitis Esophageal reflux Anxiety and depression (CMS/HCC)- Primary Mixed hyperlipidemia (CMS/HCC) Mixed hyperlipidemia Restless leg syndrome Restless legs syndrome (RLS) Primary hypertension ([facility]) Unspecified essential hypertension Type 2 diabetes mellitus without complication, without long-term current use of insulin ([facility]) Other insomnia Rash- Primary Rash and other nonspecific skin eruption Essential (primary) hypertension ([facility]/HCC) Unspecified essential hypertension Edema of both lower extremities Class 2 severe obesity due to excess calories with serious comorbidity and body mass index (BMI) of 37.0 to 37.9 in adult ([facility]) ROLANDO (obstructive sleep apnea) Obstructive sleep apnea (adult) (pediatric) Type 2 diabetes mellitus without complication, without long-term current use of insulin ([facility]) Gastroenteritis Other and unspecified noninfectious gastroenteritis and colitis Iron deficiency anemia, unspecified iron deficiency anemia type Weight loss, unintentional- Primary Loss of weight Chronic respiratory failure with hypoxia ([facility]) Morbid (severe) obesity due to excess calories (CMS/HCC) Essential (primary) hypertension ([facility]) Unspecified essential hypertension Class 2 severe obesity due to excess calories with serious comorbidity and body mass index (BMI) of 37.0 to 37.9 in adult (CMS/[facility]) Rash Rash and other nonspecific [...] use of insulin ([facility]) Edema of both lower extremities Nausea and vomiting, unspecified vomiting type Diarrhea, unspecified type Arthritis- Primary Unspecified arthropathy, site unspecified documented in this encounter [facility] HealthcareEvaluation note* Diagnosis Anxiety and depression (CMS/HCC)- Primary Other insomnia Class 2 severe obesity due to excess calories with serious comorbidity and body mass index (BMI) of 37.0 to 37.9 in adult ([facility]) Type 2 diabetes mellitus without complication, without long-term current use of insulin ([facility]) ROLANDO (obstructive sleep apnea) Obstructive [...] Essential (primary) hypertension ([facility]) Unspecified essential hypertension Body mass index (BMI) 37.0-37.9, adult Chronic respiratory failure with hypoxia (CMS/[facility]) Type 2 diabetes mellitus with other specified complication (CMS/HCC) Atherosclerosis of aorta (CMS/HCC) Atherosclerosis of aorta Mixed hyperlipidemia (CMS/HCC) Mixed hyperlipidemia Anxiety and depression (CMS/HCC) Restless leg syndrome Restless legs syndrome (RLS) Primary hypertension ([facility]) Unspecified essential hypertension Type 2 diabetes mellitus without complication, without long-term current use of insulin (CMS/[facility]) Right upper quadrant abdominal pain COPD mixed type (CMS/HCC) Gastroesophageal reflux disease without esophagitis Esophageal reflux Anxiety and depression (CMS/HCC)- Primary Mixed hyperlipidemia (CMS/HCC) Mixed hyperlipidemia Restless leg syndrome Restless legs syndrome (RLS) Primary hypertension ([facility]) Unspecified essential hypertension Type 2 diabetes mellitus without complication, without long-term current use of insulin ([facility]) Other insomnia Rash- Primary Rash and other nonspecific skin eruption Essential (primary) hypertension ([facility]) Unspecified essential hypertension Edema of both lower extremities Class 2 severe obesity due to excess calories with serious comorbidity and body mass index (BMI) of 37.0 to 37.9 in adult ([facility]) ROLANDO (obstructive sleep apnea) Obstructive sleep apnea (adult) (pediatric) Type 2 diabetes mellitus without complication, without long-term current use of insulin ([facility]) Gastroenteritis Other and unspecified noninfectious gastroenteritis and colitis Iron deficiency anemia, unspecified iron deficiency anemia type Weight loss, unintentional- Primary Loss of weight Chronic respiratory failure with hypoxia ([facility]) Morbid (severe) obesity due to excess calories ([facility]) Essential (primary) hypertension ([facility]) Unspecified essential hypertension Class 2 severe obesity due to excess calories with serious comorbidity and body mass index (BMI) of 37.0 to 37.9 in adult ([facility]) Rash Rash and other nonspecific skin eruption Tobacco dependence syndrome Tobacco use disorder Anxiety and depression ([facility]) Mixed hyperlipidemia ([facility]) Mixed hyperlipidemia Iron deficiency anemia, unspecified iron deficiency anemia type Restless leg syndrome Restless legs syndrome (RLS) Primary hypertension ([facility]) Unspecified essential hypertension Gastroesophageal reflux disease without esophagitis Esophageal reflux Type 2 diabetes mellitus without complication, without long-term current use of insulin ([facility]) Edema of both lower extremities Nausea and vomiting, unspecified vomiting type Diarrhea, unspecified type Other atopic dermatitis Lichen simplex chronicus Lichenification and lichen simplex chronicus documented in this encounter [facility] HealthcareEvaluation note* Diagnosis Anxiety and depression ([facility])- Primary Other insomnia Class 2 severe obesity due to excess calories with serious comorbidity and body mass index (BMI) of 37.0 to 37.9 in adult ([facility]) Type 2 diabetes mellitus without complication, without long-term current use of insulin ([facility]) ROLANDO (obstructive sleep apnea) Obstructive sleep apnea (adult) (pediatric) Other insomnia- Primary ROLANDO (obstructive sleep apnea) Obstructive sleep apnea (adult) (pediatric) COPD mixed type ([facility]) Tobacco dependence syndrome Tobacco use disorder BMI 37.0-37.9, adult Anxiety and depression (CMS/HCC) Restless leg syndrome Restless legs syndrome (RLS) Other insomnia- Primary Anxiety and depression (CMS/HCC) Restless leg syndrome Restless legs syndrome (RLS) Acute non-recurrent maxillary sinusitis Right upper quadrant abdominal pain Other fatigue- Primary Morbid (severe) obesity due to excess calories (CMS/[facility]) Essential (primary) hypertension (CMS/HCC) Unspecified essential hypertension Body mass index (BMI) 37.0-37.9, adult Chronic respiratory failure with hypoxia ([facility]) Type 2 diabetes mellitus with other specified complication ([facility]) Atherosclerosis of aorta (CMS/[facility]) Atherosclerosis of aorta Mixed hyperlipidemia (CMS/HCC) Mixed hyperlipidemia Anxiety and depression (CMS/[facility]) Restless leg syndrome Restless legs syndrome (RLS) Primary hypertension ([facility]) Unspecified essential hypertension Type 2 diabetes mellitus without complication, without long-term current use of insulin ([facility]) Right upper quadrant abdominal pain COPD mixed type ([facility]) Gastroesophageal reflux disease without esophagitis Esophageal reflux Anxiety and depression ([facility])- Primary Mixed hyperlipidemia (CMS/HCC) Mixed hyperlipidemia Restless leg syndrome Restless legs syndrome (RLS) Primary hypertension ([facility]) Unspecified essential hypertension Type 2 diabetes mellitus without complication, without long-term current use of insulin ([facility]) Other insomnia Rash- Primary Rash and other nonspecific skin eruption Essential (primary) hypertension ([facility]) Unspecified essential hypertension Edema of both lower extremities Class 2 severe obesity due to excess calories with serious comorbidity and body mass index (BMI) of 37.0 to 37.9 in adult ([facility]) ROLANDO (obstructive sleep apnea) Obstructive sleep apnea (adult) (pediatric) Type 2 diabetes mellitus without complication, without long-term current use of insulin ([facility]) Gastroenteritis Other and unspecified noninfectious gastroenteritis and colitis Iron deficiency anemia, unspecified iron deficiency anemia type Weight loss, unintentional- Primary Loss of weight Chronic respiratory failure with hypoxia ([facility]) Morbid (severe) obesity due to excess calories ([facility]) Essential (primary) hypertension ([facility]) Unspecified essential hypertension Class 2 severe obesity due to excess calories with serious comorbidity and body mass index (BMI) of 37.0 to 37.9 in adult ([facility]) Rash Rash and other nonspecific skin eruption Tobacco dependence syndrome Tobacco use disorder Anxiety and depression (CMS/[facility]) Mixed hyperlipidemia (CMS/HCC) Mixed hyperlipidemia Iron deficiency [...] Loss of weight documented in this encounter [facility]* Diagnosis Anxiety and depression (CMS/HCC)- Primary Other insomnia Class 2 severe obesity due to excess calories with serious comorbidity and body mass index (BMI) of 37.0 to 37.9 in adult (CMS/[facility]) Type 2 diabetes mellitus without [...] 37.0-37.9, adult Chronic respiratory failure with hypoxia (CMS/[facility]) Type 2 diabetes mellitus with [...] use of insulin ([facility]) Other insomnia Rash- Primary Rash and other nonspecific skin eruption Essential (primary) hypertension ([facility]) Unspecified essential hypertension Edema of both lower extremities Class 2 severe obesity due to excess calories with serious comorbidity and body mass index (BMI) of 37.0 to 37.9 in adult ([facility]) ROLANDO (obstructive sleep apnea) Obstructive sleep apnea (adult) (pediatric) Type 2 diabetes mellitus without complication, without long-term current use of insulin ([facility]) Gastroenteritis Other and unspecified noninfectious gastroenteritis and colitis Iron deficiency anemia, unspecified iron deficiency anemia type Weight loss, unintentional- Primary Loss of weight Chronic respiratory failure with hypoxia ([facility]) Morbid (severe) obesity due to excess calories ([facility]) Essential (primary) hypertension ([facility] [place]) Unspecified essential hypertension Class 2 severe obesity due to excess calories with serious comorbidity and body mass index (BMI) of 37.0 to 37.9 in adult ([facility]) Rash Rash and other nonspecific skin eruption Tobacco dependence syndrome Tobacco use disorder Anxiety and depression ([facility]) Mixed hyperlipidemia ([facility]) Mixed hyperlipidemia Iron deficiency anemia, unspecified iron deficiency anemia type Restless leg syndrome Restless legs syndrome (RLS) Primary hypertension ([facility] [place]) Unspecified essential hypertension Gastroesophageal reflux disease without esophagitis Esophageal reflux Type 2 diabetes mellitus without complication, without long-term current use of insulin ([facility]) Edema of both lower extremities Nausea and vomiting, unspecified vomiting type Diarrhea, unspecified type Irritable bowel syndrome with diarrhea- Primary Irritable bowel syndrome Centrilobular emphysema ([facility]) Chronic respiratory failure with hypoxia ([facility] [place]) Essential (primary) hypertension ([facility] [place]) Unspecified essential hypertension Gastroesophageal reflux disease without esophagitis Esophageal reflux Class 2 severe obesity due to excess calories with serious comorbidity and body mass index (BMI) of 37.0 to 37.9 in adult ([facility]) Occult blood positive stool Nonspecific abnormal finding in stool contents Tobacco dependence syndrome Tobacco use disorder Anxiety and depression ([facility]) documented in this encounter [facility] HealthcareEvaluation note* Diagnosis Anxiety and depression ([facility])- Primary Other insomnia Class 2 severe obesity due to excess calories with serious comorbidity and body mass index (BMI) of 37.0 to 37.9 in adult ([facility]/HCC) Type 2 diabetes mellitus without complication, without [...] Morbid (severe) obesity due to excess calories (CMS/[facility]) Essential (primary) hypertension (CMS/[facility]) Unspecified essential hypertension Body mass index (BMI) 37.0-37.9, adult Chronic respiratory failure with hypoxia (CMS/[facility]) Type 2 diabetes mellitus with other specified complication (CMS/[facility]) Atherosclerosis of aorta (CMS/HCC) Atherosclerosis of aorta Mixed hyperlipidemia (CMS/HCC) Mixed hyperlipidemia Anxiety and depression (CMS/[facility]) Restless leg syndrome Restless legs syndrome (RLS) Primary hypertension (CMS/HCC) Unspecified essential hypertension Type 2 diabetes mellitus without complication, without long-term current use of insulin ([facility]) Right upper quadrant abdominal pain COPD mixed type (CMS/[facility]) Gastroesophageal reflux disease without esophagitis Esophageal reflux Anxiety and depression (CMS/HCC)- Primary Mixed hyperlipidemia (CMS/HCC) Mixed hyperlipidemia Restless leg syndrome Restless legs syndrome (RLS) Primary hypertension (CMS/[facility]) Unspecified essential hypertension Type 2 diabetes mellitus without complication, without long-term current use of insulin ([facility]) Other insomnia Rash- Primary Rash and other nonspecific skin eruption Essential (primary) hypertension (CMS/HCC) Unspecified essential hypertension Edema of both lower extremities Class 2 severe obesity due to excess calories with serious comorbidity and body mass index (BMI) of 37.0 to 37.9 in adult ([facility]) ROLANDO (obstructive sleep apnea) Obstructive sleep apnea (adult) (pediatric) Type 2 diabetes mellitus without complication, without long-term current use of insulin ([facility]) Gastroenteritis Other and unspecified noninfectious gastroenteritis and colitis Iron deficiency anemia, unspecified iron deficiency anemia type Weight loss, unintentional- Primary Loss of weight Chronic respiratory failure with hypoxia (CMS/[facility]) Morbid (severe) obesity due to excess calories (CMS/HCC) Essential (primary) hypertension ([facility]) Unspecified essential hypertension Class 2 severe obesity due to excess calories with serious comorbidity and body mass index (BMI) of 37.0 to 37.9 in adult ([facility]) Rash Rash and other nonspecific skin eruption Tobacco dependence syndrome Tobacco use disorder Anxiety and depression ([facility]) Mixed hyperlipidemia ([facility] [place]) Mixed hyperlipidemia Iron deficiency anemia, unspecified iron deficiency anemia type Restless leg syndrome Restless legs syndrome (RLS) Primary hypertension ([facility] [place]) Unspecified essential hypertension Gastroesophageal reflux disease without esophagitis Esophageal reflux Type 2 diabetes mellitus without complication, without long-term current use of insulin ([facility] [place]) Edema of both lower extremities Nausea and vomiting, unspecified vomiting type Diarrhea, unspecified type Irritable bowel syndrome with diarrhea- Primary Irritable bowel syndrome Centrilobular emphysema ([facility]) Chronic respiratory failure with hypoxia ([facility] [place]) Essential (primary) hypertension ([facility] [place]) Unspecified essential hypertension Gastroesophageal reflux disease without esophagitis Esophageal reflux Class 2 severe obesity due to excess calories with serious comorbidity and body mass index (BMI) of 37.0 to 37.9 in adult ([facility] [facility] [place]) Occult blood positive stool Nonspecific abnormal finding in stool contents Tobacco dependence syndrome Tobacco use disorder Anxiety and depression ([facility] [place]) Other atopic dermatitis documented in this encounter [facility]* Diagnosis Anxiety and depression ([facility] [place])- Primary Other insomnia Class 2 severe obesity due to excess calories with serious comorbidity and body mass index (BMI) of 37.0 to 37.9 in adult ([facility] [place]) Type 2 diabetes mellitus without complication, without long-term current use of insulin ([facility] [place]) ROLANDO (obstructive sleep apnea) Obstructive sleep apnea (adult) (pediatric) Other insomnia- Primary ROLANDO (obstructive sleep apnea) Obstructive sleep apnea (adult) (pediatric) COPD mixed type ([facility] [place]) Tobacco dependence syndrome Tobacco use disorder BMI 37.0-37.9, adult Anxiety and depression ([facility] [place]) Restless leg syndrome Restless legs syndrome (RLS) Other insomnia- Primary Anxiety and depression ([facility] [place]) Restless leg syndrome Restless legs syndrome (RLS) Acute non-recurrent maxillary sinusitis Right upper quadrant abdominal pain Other fatigue- Primary Morbid (severe) obesity due to excess calories ([facility] [place]) Essential (primary) hypertension ([facility] [place]) Unspecified essential hypertension Body mass index (BMI) 37.0-37.9, adult Chronic respiratory failure with hypoxia ([facility] [place]) Type 2 diabetes mellitus with other specified complication ([facility] [place] Atherosclerosis of aorta ([facility] [place]) Atherosclerosis of aorta Mixed hyperlipidemia ([facility] [place] Mixed hyperlipidemia Anxiety and depression ([facility] [place]) Restless leg syndrome Restless legs syndrome (RLS) Primary hypertension ([facility] [place]) Unspecified essential hypertension Type 2 diabetes mellitus without complication, without long-term current use of insulin ([facility] [place]) Right upper quadrant abdominal pain COPD mixed type ([facility] [place]) Gastroesophageal reflux disease without esophagitis Esophageal reflux Anxiety and depression ([facility] [place])- Primary Mixed hyperlipidemia ([facility] [place]) Mixed hyperlipidemia Restless leg syndrome Restless legs syndrome (RLS) Primary hypertension ([facility] [place]) Unspecified essential hypertension Type 2 diabetes mellitus without complication, without long-term current use of insulin ([facility] [place]) Other insomnia Rash- Primary Rash and other nonspecific skin eruption Essential (primary) hypertension ([facility] [place]) Unspecified essential hypertension Edema of both lower extremities Class 2 severe obesity due to excess calories with serious comorbidity and body mass index (BMI) of 37.0 to 37.9 in adult ([facility] [place]) ROLANDO (obstructive sleep apnea) Obstructive sleep apnea (adult) (pediatric) Type 2 diabetes mellitus without complication, without long-term current use of insulin ([facility] [place]) Gastroenteritis Other and unspecified noninfectious gastroenteritis and colitis Iron deficiency anemia, unspecified iron deficiency anemia type Weight loss, unintentional- Primary Loss of weight Chronic respiratory failure with hypoxia ([facility] [place]) Morbid (severe) obesity due to excess calories ([facility] [place]) Essential (primary) hypertension ([facility] [place]) Unspecified essential hypertension Class 2 severe obesity due to excess calories with serious comorbidity and body mass index (BMI) of 37.0 to 37.9 in adult ([facility] [place]) Rash Rash and other nonspecific skin eruption Tobacco dependence syndrome Tobacco use disorder Anxiety and depression ([facility] [place]) Mixed hyperlipidemia ([facility] [place]) Mixed hyperlipidemia Iron deficiency anemia, unspecified iron deficiency anemia type Restless leg syndrome Restless legs syndrome (RLS) Primary hypertension ([facility] [place]) Unspecified essential hypertension Gastroesophageal reflux disease without esophagitis Esophageal reflux Type 2 diabetes mellitus without complication, without long-term current use of insulin ([facility] [place]) Edema of both lower extremities [...] Essential (primary) hypertension ([facility] [place]) Unspecified essential hypertension Edema of both lower extremities Class 2 severe obesity due to excess calories with serious comorbidity and body mass index (BMI) of 37.0 to 37.9 in adult ([facility] [place]) ROLANDO (obstructive sleep apnea) Obstructive sleep apnea (adult) (pediatric) Type 2 diabetes mellitus without complication, without long-term current use of insulin Gastroenteritis Other and unspecified noninfectious gastroenteritis and colitis Iron deficiency anemia, unspecified iron deficiency anemia type Weight loss, unintentional- Primary Loss of weight Chronic respiratory failure with hypoxia ([facility] [place]) Morbid (severe) obesity due to excess calories ([facility] [place]) Essential (primary) hypertension ([facility] [place]) Unspecified essential hypertension Class 2 severe obesity due to excess calories with serious comorbidity and body mass index (BMI) of 37.0 to 37.9 in adult ([facility] [place]) Rash Rash and other nonspecific skin eruption Tobacco dependence syndrome Tobacco use disorder Anxiety and depression ([facility] [place]) Mixed hyperlipidemia ([facility] [place]) Mixed hyperlipidemia Iron deficiency anemia, unspecified iron deficiency anemia type Restless leg syndrome Restless legs syndrome (RLS) Primary hypertension ([facility] [place]) Unspecified essential hypertension Gastroesophageal reflux disease without esophagitis Esophageal reflux Type 2 diabetes mellitus without complication, without long-term current use of insulin Edema of both lower extremities Nausea and vomiting, unspecified vomiting type Diarrhea, unspecified type Irritable bowel syndrome with diarrhea- Primary Irritable bowel syndrome Centrilobular emphysema ([facility] [place]) Chronic respiratory failure with hypoxia ([facility] [place]) Essential (primary) hypertension ([facility] [place]) Unspecified essential hypertension Gastroesophageal reflux disease without esophagitis Esophageal reflux Class 2 severe obesity due to excess calories with serious comorbidity and body mass index (BMI) of 37.0 to 37.9 in adult ([facility] [place]) Occult blood positive stool Nonspecific abnormal finding in stool contents Tobacco dependence syndrome Tobacco use disorder Anxiety and depression ([facility] [place]) Anxiety and depression ([facility] [place]) documented in this encounter [facility]* Diagnosis Anxiety and depression ([facility] [place])- Primary Other insomnia Class 2 severe obesity due to excess calories with serious comorbidity and body mass index (BMI) of 37.0 to 37.9 in adult ([facility] [place]) Type 2 diabetes mellitus without [...] failure with hypoxia ([facility] [place]) Type 2 diabetes mellitus with other specified complication Atherosclerosis of aorta (CMS/HCC) Atherosclerosis of aorta Mixed hyperlipidemia (CMS/HCC) Mixed hyperlipidemia Anxiety and depression (CMS/HCC) Restless leg syndrome Restless legs syndrome (RLS) Primary hypertension ([facility] [place]) Unspecified essential hypertension Type 2 [...] 37.9 in adult ([facility] [place]/[facility]) ROLANDO (obstructive sleep apnea) Obstructive sleep apnea (adult) (pediatric) Type 2 diabetes mellitus without complication, without long-term current use of insulin Gastroenteritis Other and unspecified noninfectious gastroenteritis and colitis Iron deficiency anemia, unspecified iron deficiency anemia type Weight loss, unintentional- Primary Loss of weight Chronic respiratory failure with hypoxia ([facility] [place]) Morbid (severe) obesity due to excess calories (CMS/HCC) Essential (primary) hypertension ([facility] [place]) Unspecified essential hypertension Class 2 [...] syndrome Tobacco use disorder Anxiety and depression (CMS/[facility]) Edema of both lower extremities- Primary documented in this encounter [facility]* Diagnosis Anxiety and depression (CMS/HCC)- Primary Other insomnia Class 2 severe obesity due to excess calories with serious comorbidity and body mass index (BMI) of 37.0 to 37.9 in adult ([facility] [place]) Type 2 diabetes mellitus without [...] 37.0-37.9, adult Chronic respiratory failure with hypoxia (CMS/[facility]) Type 2 diabetes mellitus with other specified complication Atherosclerosis of aorta (CMS/HCC) Atherosclerosis of aorta Mixed hyperlipidemia (CMS/HCC) Mixed hyperlipidemia Anxiety and depression ([facility] [place]) Restless leg syndrome Restless legs syndrome (RLS) Primary hypertension ([facility] [place]) Unspecified essential hypertension Type 2 diabetes mellitus without complication, without long-term current use of insulin Right upper quadrant abdominal pain COPD mixed type ([facility] [place]) Gastroesophageal reflux disease without esophagitis Esophageal reflux Anxiety and depression ([facility] [place])- Primary Mixed hyperlipidemia ([facility] [place]) Mixed hyperlipidemia Restless leg syndrome Restless legs syndrome (RLS) Primary hypertension ([facility] [place]) Unspecified essential hypertension Type 2 diabetes mellitus without complication, without long-term current use of insulin Other insomnia Rash- Primary Rash and other nonspecific skin eruption Essential (primary) hypertension ([facility] [place]) Unspecified essential hypertension Edema of both lower extremities Class 2 severe obesity due to excess calories with serious comorbidity and body mass index (BMI) of 37.0 to 37.9 in adult ([facility]) ROLANDO (obstructive sleep apnea) Obstructive sleep apnea (adult) (pediatric) Type 2 diabetes mellitus without complication, without long-term current use of insulin Gastroenteritis Other and unspecified noninfectious gastroenteritis and colitis Iron deficiency anemia, unspecified iron deficiency anemia type Weight loss, unintentional- Primary Loss of weight Chronic respiratory failure with hypoxia ([facility] [place]) Morbid (severe) obesity due to excess calories ([facility] [place]) Essential (primary) hypertension ([facility] [place]) Unspecified essential hypertension Class 2 severe obesity due to excess calories with serious comorbidity and body mass index (BMI) of 37.0 to 37.9 in adult ([facility]) Rash Rash and other nonspecific skin eruption Tobacco dependence syndrome Tobacco use disorder Anxiety and depression ([facility] [place]) Mixed hyperlipidemia ([facility] [place]) Mixed hyperlipidemia Iron deficiency anemia, unspecified iron deficiency anemia type Restless leg syndrome Restless legs syndrome (RLS) Primary hypertension ([facility] [place]) Unspecified essential hypertension Gastroesophageal reflux disease without esophagitis Esophageal reflux Type 2 diabetes mellitus without complication, without long-term current use of insulin Edema of both lower extremities Nausea and vomiting, unspecified vomiting type Diarrhea, unspecified type Irritable bowel syndrome with diarrhea- Primary Irritable bowel syndrome Centrilobular emphysema ([facility] [place] Chronic respiratory failure with hypoxia ([facility] [place]) Essential (primary) hypertension ([facility] [place]) Unspecified essential hypertension Gastroesophageal reflux disease without esophagitis Esophageal reflux Class 2 severe obesity due to excess calories with serious comorbidity and body mass index (BMI) of 37.0 to 37.9 in adult ([facility] [place]) Occult blood positive stool Nonspecific abnormal finding in stool contents Tobacco dependence syndrome Tobacco use disorder Anxiety and depression ([facility] [place]) Encounter for wellness examination in adult- Primary Essential (primary) hypertension ([facility] [place]) Unspecified essential hypertension Gastroesophageal reflux disease without esophagitis Esophageal reflux Type 2 diabetes mellitus without complication, without long-term current use of insulin Iron deficiency anemia, unspecified iron deficiency anemia type Anxiety and depression ([facility] [place]) Mixed hyperlipidemia ([facility] [place]/HCC) Mixed hyperlipidemia Edema of both lower extremities Restless leg syndrome Restless legs syndrome (RLS) Primary hypertension ([facility] [place]) Unspecified essential hypertension Other insomnia COPD exacerbation ([facility] [place]) Obstructive chronic bronchitis with exacerbation documented in this encounter [facility]* Diagnosis Anxiety and depression ([facility] [place])- Primary Other insomnia Class 2 severe obesity due to excess calories with serious comorbidity and body mass index (BMI) of 37.0 to 37.9 in adult ([facility] [place]) Type 2 diabetes mellitus without complication, without long-term current use of insulin ROLANDO (obstructive sleep apnea) Obstructive sleep apnea (adult) (pediatric) Other insomnia- Primary ROLANDO (obstructive sleep apnea) Obstructive sleep apnea (adult) (pediatric) COPD mixed type ([facility] [place]) Tobacco dependence syndrome Tobacco use disorder BMI 37.0-37.9, adult Anxiety and depression ([facility] [place]) Restless leg syndrome Restless legs syndrome (RLS) Other insomnia- Primary Anxiety and depression ([facility] [place]) Restless leg syndrome Restless legs syndrome (RLS) Acute non-recurrent maxillary sinusitis Right upper quadrant abdominal pain Other fatigue- Primary Morbid (severe) obesity due to excess calories ([facility] [place]) Essential (primary) hypertension ([facility] [place]) Unspecified essential hypertension Body mass index (BMI) 37.0-37.9, adult Chronic respiratory failure with hypoxia ([facility] [place]) Type 2 diabetes mellitus with other specified complication Atherosclerosis of aorta ([facility] [place]) Atherosclerosis of aorta Mixed hyperlipidemia ([facility] [place]/[facility]CC) Mixed hyperlipidemia Anxiety and depression ([facility] [place]) Restless leg syndrome Restless legs syndrome (RLS) Primary hypertension ([facility] [place]) Unspecified essential hypertension Type 2 diabetes mellitus without complication, without long-term current use of insulin Right upper quadrant abdominal pain COPD mixed type ([facility] [place]/HCC) Gastroesophageal reflux disease without esophagitis Esophageal reflux Anxiety and depression ([facility] [place])- Primary Mixed hyperlipidemia ([facility] [place]/HCC) Mixed hyperlipidemia Restless leg syndrome Restless legs syndrome (RLS) Primary hypertension ([facility]) Unspecified essential hypertension Type 2 diabetes mellitus without complication, without long-term current use of insulin Other insomnia Rash- Primary Rash and other nonspecific skin eruption Essential (primary) hypertension ([facility] [place]) Unspecified essential hypertension Edema of both lower extremities Class 2 severe obesity due to excess calories with serious comorbidity and body mass index (BMI) of 37.0 to 37.9 in adult ([facility]) ROLANDO (obstructive sleep apnea) Obstructive sleep apnea (adult) (pediatric) Type 2 diabetes mellitus without complication, without long-term current use of insulin Gastroenteritis Other and unspecified noninfectious gastroenteritis and colitis Iron deficiency anemia, unspecified iron deficiency anemia type Weight loss, unintentional- Primary Loss of weight Chronic respiratory failure with hypoxia ([facility]) Morbid (severe) obesity due to excess calories ([facility]) Essential (primary) hypertension ([facility]) Unspecified essential hypertension Class 2 severe obesity due to excess calories with serious comorbidity and body mass index (BMI) of 37.0 to 37.9 in adult ([facility]) Rash Rash and other nonspecific skin eruption Tobacco dependence syndrome Tobacco use disorder Anxiety and depression ([facility]) Mixed hyperlipidemia ([facility]) Mixed hyperlipidemia Iron deficiency anemia, unspecified iron deficiency anemia type Restless leg syndrome Restless legs syndrome (RLS) Primary hypertension ([facility]) Unspecified essential hypertension Gastroesophageal reflux disease without esophagitis Esophageal reflux Type 2 diabetes mellitus without complication, without long-term current use of insulin Edema of both lower extremities Nausea and vomiting, unspecified vomiting type Diarrhea, unspecified type Irritable bowel syndrome with diarrhea- Primary Irritable bowel syndrome Centrilobular emphysema ([facility] [place]) Chronic respiratory failure with hypoxia ([facility]) Essential (primary) hypertension ([facility]) Unspecified essential hypertension Gastroesophageal reflux disease without esophagitis Esophageal reflux Class 2 severe obesity due to excess calories with serious comorbidity and body mass index (BMI) of 37.0 to 37.9 in adult ([facility]) Occult blood positive stool Nonspecific abnormal finding in stool contents Tobacco dependence syndrome Tobacco use disorder Anxiety and depression ([facility]) Encounter for wellness examination in adult- Primary Essential (primary) hypertension ([facility] [place]) Unspecified essential hypertension Gastroesophageal reflux disease without esophagitis Esophageal reflux Type 2 diabetes mellitus without complication, without long-term current use of insulin Iron deficiency anemia, unspecified iron deficiency anemia type Anxiety and depression (CMS/HCC) Mixed hyperlipidemia (CMS/HCC) Mixed hyperlipidemia Edema of both lower extremities Restless leg syndrome Restless legs syndrome (RLS) Primary hypertension ([facility] [place]/HCC) Unspecified essential hypertension Other insomnia COPD exacerbation ([facility] [place]) Obstructive chronic bronchitis with exacerbation Osteopenia after menopause- Primary documented in this encounter [facility]* Diagnosis Anxiety and depression (CMS/HCC)- Primary Other insomnia Class 2 severe obesity due to excess calories with serious comorbidity and body mass index (BMI) of 37.0 to 37.9 in adult ([facility] [place]) Type 2 diabetes mellitus without complication, without long-term current use of insulin ROLANDO (obstructive sleep apnea) Obstructive sleep apnea (adult) (pediatric) Other insomnia- Primary ROLANDO (obstructive sleep apnea) Obstructive sleep apnea (adult) (pediatric) COPD mixed type ([facility] [place]/HCC) Tobacco dependence syndrome Tobacco use disorder BMI 37.0-37.9, adult Anxiety and depression ([facility] [facility]) Restless leg syndrome Restless legs syndrome (RLS) Other insomnia- Primary Anxiety and depression ([facility]) Restless leg syndrome Restless legs syndrome (RLS) Acute non-recurrent maxillary sinusitis Right upper quadrant abdominal pain Other fatigue- Primary Morbid (severe) obesity due to excess calories ([facility]) Essential (primary) hypertension ([facility]) Unspecified essential hypertension Body mass index (BMI) 37.0-37.9, adult Chronic respiratory failure with hypoxia ([facility]) Type 2 diabetes mellitus with other specified complication Atherosclerosis of aorta ([facility]) Atherosclerosis of aorta Mixed hyperlipidemia ([facility]) Mixed hyperlipidemia Anxiety and depression ([facility]) Restless leg syndrome Restless legs syndrome (RLS) Primary hypertension ([facility]) Unspecified essential hypertension Type 2 diabetes mellitus without complication, without long-term current use of insulin Right upper quadrant abdominal pain COPD mixed type ([facility]) Gastroesophageal reflux disease without esophagitis Esophageal reflux Anxiety and depression ([facility]/HCC)- Primary Mixed hyperlipidemia (CMS/HCC) Mixed hyperlipidemia Restless leg syndrome Restless legs syndrome (RLS) Primary hypertension ([facility]) Unspecified essential hypertension Type 2 [...] 37.9 in adult ([facility]) ROLANDO (obstructive sleep apnea) Obstructive sleep apnea (adult) (pediatric) Type 2 diabetes mellitus without complication, without long-term current use of insulin Gastroenteritis Other and unspecified noninfectious gastroenteritis and colitis Iron deficiency anemia, unspecified iron deficiency anemia type Weight loss, unintentional- Primary Loss of weight Chronic respiratory failure with hypoxia ([facility]) Morbid (severe) obesity due to excess calories ([facility]) Essential (primary) hypertension ([facility]) Unspecified essential hypertension Class 2 severe obesity due to excess calories with serious comorbidity and body mass index (BMI) of 37.0 to 37.9 in adult ([facility]) Rash Rash and other nonspecific skin eruption Tobacco dependence syndrome Tobacco use disorder Anxiety and depression ([facility]) Mixed hyperlipidemia ([facility]) Mixed hyperlipidemia Iron deficiency anemia, unspecified iron deficiency anemia type Restless leg syndrome Restless legs syndrome (RLS) Primary hypertension ([facility]) Unspecified essential hypertension Gastroesophageal reflux disease without esophagitis Esophageal reflux Type 2 diabetes mellitus without complication, without long-term current use of insulin Edema of both lower extremities Nausea and vomiting, unspecified vomiting type Diarrhea, unspecified type Irritable bowel syndrome with diarrhea- Primary Irritable bowel syndrome Centrilobular emphysema ([facility]) Chronic respiratory failure with hypoxia ([facility] [place]) Essential (primary) hypertension ([facility]) Unspecified essential hypertension Gastroesophageal reflux disease without esophagitis Esophageal reflux Class 2 severe obesity due to excess calories with serious comorbidity and body mass index (BMI) of 37.0 to 37.9 in adult ([facility]) Occult blood positive stool Nonspecific abnormal finding in stool contents Tobacco dependence syndrome Tobacco use disorder Anxiety and depression ([facility]) Encounter for wellness examination in adult- Primary Essential (primary) hypertension ([facility]) Unspecified essential hypertension Gastroesophageal reflux disease without esophagitis Esophageal reflux Type 2 diabetes mellitus without complication, without long-term current use of insulin Iron deficiency anemia, unspecified iron deficiency anemia type Anxiety and depression ([facility]) Mixed hyperlipidemia ([facility]) Mixed hyperlipidemia Edema of both lower extremities Restless leg syndrome Restless legs syndrome (RLS) Primary hypertension ([facility] [place]) Unspecified essential hypertension Other insomnia COPD exacerbation ([facility]) Obstructive chronic bronchitis with exacerbation Vitamin deficiency- Primary Unspecified vitamin deficiency documented in this encounter [facility] Diagnosis Anxiety and depression- Primary Other insomnia Class 2 severe obesity due to excess calories with serious comorbidity and body mass index (BMI) of 37.0 to 37.9 in adult [place] Type 2 diabetes mellitus without complication, without long-term current use of insulin ([facility]) ROLANDO (obstructive sleep apnea) Obstructive sleep apnea (adult) (pediatric) Other insomnia- Primary ROLANDO (obstructive sleep apnea) Obstructive sleep apnea (adult) (pediatric) COPD mixed type ([facility]) Tobacco dependence syndrome Tobacco use disorder BMI 37.0-37.9, adult Anxiety and depression Restless leg syndrome Restless legs syndrome (RLS) Other insomnia- Primary Anxiety and depression Restless leg syndrome Restless legs syndrome (RLS) Acute non-recurrent maxillary sinusitis Right upper quadrant abdominal pain Other fatigue- Primary Morbid (severe) obesity due to excess calories ([facility] Essential (primary) hypertension Unspecified essential hypertension Body mass index (BMI) 37.0-37.9, adult Chronic respiratory failure with hypoxia ([facility]) Type 2 diabetes mellitus with other specified complication ([facility]) Atherosclerosis of aorta Mixed hyperlipidemia Mixed hyperlipidemia Anxiety and depression Restless leg syndrome Restless legs syndrome (RLS) Primary hypertension Unspecified essential hypertension Type 2 diabetes mellitus without complication, without long-term current use of insulin ([facility]) Right upper quadrant abdominal pain COPD mixed type ([facility]) Gastroesophageal reflux disease without esophagitis Esophageal reflux Anxiety and depression- Primary Mixed hyperlipidemia Mixed hyperlipidemia Restless leg syndrome Restless legs syndrome (RLS) Primary hypertension Unspecified essential hypertension Type 2 diabetes mellitus without complication, without long-term current use of insulin ([facility]) Other insomnia Rash- Primary Rash and other nonspecific skin eruption Essential (primary) hypertension Unspecified essential hypertension Edema of both lower extremities Class 2 severe obesity due to excess calories with serious comorbidity and body mass index (BMI) of 37.0 to 37.9 in adult ([facility] ROLANDO (obstructive sleep apnea) Obstructive sleep apnea (adult) (pediatric) Type 2 diabetes mellitus without complication, without long-term current use of insulin ([facility]) Gastroenteritis Other and unspecified noninfectious gastroenteritis and colitis Iron deficiency anemia, unspecified iron deficiency anemia type Weight loss, unintentional- Primary Loss of weight Chronic respiratory failure with hypoxia ([facility]) Morbid (severe) obesity due to excess calories ([facility] Essential (primary) hypertension Unspecified essential hypertension Class 2 severe obesity due to excess calories with serious comorbidity and body mass index (BMI) of 37.0 to 37.9 in adult ([facility] Rash Rash and other nonspecific skin eruption Tobacco dependence syndrome Tobacco use disorder Anxiety and depression Mixed hyperlipidemia Mixed hyperlipidemia Iron deficiency anemia, unspecified iron deficiency anemia type Restless leg syndrome Restless legs syndrome (RLS) Primary hypertension Unspecified essential hypertension Gastroesophageal reflux disease without esophagitis Esophageal reflux Type 2 diabetes mellitus without complication, without long-term current use of insulin ([facility]) Edema of both lower extremities Nausea and vomiting, unspecified vomiting type Diarrhea, unspecified type Irritable bowel syndrome with diarrhea- Primary Irritable bowel syndrome Centrilobular emphysema ([facility]) Chronic respiratory failure with hypoxia ([facility]) Essential (primary) hypertension Unspecified essential hypertension Gastroesophageal reflux disease without esophagitis Esophageal reflux Class 2 severe obesity due to excess calories with serious comorbidity and body mass index (BMI) of 37.0 to 37.9 in adult [place] Occult blood positive stool Nonspecific abnormal finding in stool contents Tobacco dependence syndrome Tobacco use disorder Anxiety and depression Encounter for wellness examination in adult- Primary Essential (primary) hypertension Unspecified essential hypertension Gastroesophageal reflux disease without esophagitis Esophageal reflux Type 2 diabetes mellitus without complication, without long-term current use of insulin ([facility]) Iron deficiency anemia, unspecified iron deficiency anemia type Anxiety and depression Mixed hyperlipidemia Mixed hyperlipidemia Edema of both lower extremities Restless leg syndrome Restless legs syndrome (RLS) Primary hypertension Unspecified essential hypertension Other insomnia COPD exacerbation ([facility]) Obstructive chronic bronchitis with exacerbation Anxiety and depression Restless leg syndrome Restless legs syndrome (RLS) Other insomnia documented [facility] Diagnosis Anxiety and depression- Primary Other insomnia Class 2 severe obesity due to excess calories with serious comorbidity and body mass index (BMI) of 37.0 to 37.9 in adult ([facility] Type 2 diabetes mellitus without complication, without long-term current use of insulin ([facility]) ROLANDO (obstructive sleep apnea) Obstructive sleep apnea (adult) (pediatric) Other insomnia- Primary ROLANDO (obstructive sleep apnea) Obstructive sleep apnea (adult) (pediatric) COPD mixed type ([facility]) Tobacco dependence syndrome Tobacco use disorder BMI 37.0-37.9, adult Anxiety and depression Restless leg syndrome Restless legs syndrome (RLS) Other insomnia- Primary Anxiety and depression Restless leg syndrome Restless legs syndrome (RLS) Acute non-recurrent maxillary sinusitis Right upper quadrant abdominal pain Other fatigue- Primary Morbid (severe) obesity due to excess calories ([facility] Essential (primary) hypertension Unspecified essential hypertension Body [...] upper quadrant abdominal pain COPD mixed type ([facility]) Gastroesophageal reflux disease without esophagitis [...] (BMI) of 37.0 to 37.9 in adult ([facility] ROLANDO (obstructive sleep apnea) Obstructive sleep apnea (adult) (pediatric) Type 2 diabetes mellitus without complication, without long-term current use of insulin ([facility]) Gastroenteritis Other and unspecified noninfectious gastroenteritis and colitis Iron deficiency anemia, unspecified iron deficiency anemia type Weight loss, unintentional- Primary Loss of weight Chronic respiratory failure with hypoxia ([facility]) Morbid (severe) obesity due to excess calories ([facility] Essential (primary) hypertension Unspecified essential hypertension Class 2 severe obesity due to excess calories with serious comorbidity and body mass index (BMI) of 37.0 to 37.9 in adult ([facility] Rash Rash and other nonspecific skin eruption Tobacco dependence syndrome Tobacco use disorder Anxiety and depression Mixed hyperlipidemia Mixed hyperlipidemia Iron deficiency anemia, unspecified iron deficiency anemia type Restless leg syndrome Restless legs syndrome (RLS) Primary hypertension Unspecified essential hypertension Gastroesophageal reflux disease without esophagitis Esophageal reflux Type 2 diabetes mellitus without complication, without long-term current use of insulin ([facility]) Edema of both lower extremities Nausea and vomiting, unspecified vomiting type Diarrhea, unspecified type Irritable bowel syndrome with diarrhea- Primary Irritable bowel syndrome Centrilobular emphysema ([facility]) Chronic respiratory failure with hypoxia (HCC) Essential (primary) hypertension Unspecified essential hypertension Gastroesophageal reflux disease without esophagitis Esophageal reflux Class 2 severe obesity due to excess calories with serious comorbidity and body mass index (BMI) of 37.0 to 37.9 in adult ([facility] Occult blood positive stool Nonspecific abnormal finding in stool contents Tobacco dependence syndrome Tobacco use disorder Anxiety and depression Encounter for wellness examination in adult- Primary Essential (primary) hypertension Unspecified essential hypertension Gastroesophageal reflux disease without esophagitis Esophageal reflux Type 2 diabetes mellitus without complication, without long-term current use of insulin ([facility]) Iron deficiency anemia, unspecified iron deficiency anemia type Anxiety and depression Mixed hyperlipidemia Mixed hyperlipidemia Edema of both lower extremities Restless leg syndrome Restless legs syndrome (RLS) Primary hypertension Unspecified essential hypertension Other insomnia COPD exacerbation ([facility]) Obstructive chronic bronchitis with exacerbation Vomiting and diarrhea- Primary Restless leg syndrome Restless legs syndrome (RLS) ROLANDO (obstructive sleep apnea) Obstructive sleep apnea (adult) (pediatric) Essential (primary) hypertension Unspecified essential hypertension Gastroesophageal reflux disease without esophagitis Esophageal reflux Edema of both lower extremities Type 2 diabetes mellitus without complication, without long-term current use of insulin ([facility]) Class 2 severe obesity due to excess calories with serious comorbidity and body mass index (BMI) of 37.0 to 37.9 in adult ([facility] Mixed hyperlipidemia Mixed hyperlipidemia Anxiety and depression Primary hypertension Unspecified essential hypertension documented in this encounter [facility] HealthcareEvaluation noteNo assessment information availableHocking [facility] Work Phone: Evaluation note* Diagnosis Anxiety and depression- Primary Other insomnia Class 2 severe obesity due to excess calories with serious comorbidity and body mass index (BMI) of 37.0 to 37.9 in adult ([facility] Type 2 diabetes mellitus without complication, without long-term current use of insulin ([facility]) ROLANDO (obstructive sleep apnea) Obstructive sleep apnea (adult) (pediatric) Other insomnia- Primary ROLANDO (obstructive sleep apnea) Obstructive sleep apnea (adult) (pediatric) COPD mixed type ([facility]) Tobacco dependence syndrome Tobacco use disorder BMI 37.0-37.9, adult Anxiety and depression Restless leg syndrome Restless legs syndrome (RLS) Other insomnia- Primary Anxiety and depression Restless leg syndrome Restless legs syndrome (RLS) Acute non-recurrent maxillary sinusitis Right upper quadrant abdominal pain Other fatigue- Primary Morbid (severe) obesity due to excess calories ([facility] Essential (primary) hypertension Unspecified essential hypertension Body mass index (BMI) 37.0-37.9, adult Chronic respiratory failure with hypoxia ([facility]) Type 2 diabetes mellitus with other specified complication ([facility]) Atherosclerosis of aorta Mixed hyperlipidemia Mixed hyperlipidemia Anxiety and depression Restless leg syndrome Restless legs syndrome (RLS) Primary hypertension Unspecified essential hypertension Type 2 diabetes mellitus without complication, without long-term current use of insulin ([facility]) Right upper quadrant abdominal pain COPD mixed type ([facility]) Gastroesophageal reflux disease without esophagitis Esophageal reflux Anxiety and depression- Primary Mixed hyperlipidemia Mixed hyperlipidemia Restless leg syndrome Restless legs syndrome (RLS) Primary hypertension Unspecified essential hypertension Type 2 diabetes mellitus without complication, without long-term current use of insulin ([facility]) Other insomnia Rash- Primary Rash and other nonspecific skin eruption Essential (primary) hypertension Unspecified essential hypertension Edema of both lower extremities Class 2 severe obesity due to excess calories with serious comorbidity and body mass index (BMI) of 37.0 to 37.9 in adult [place] ROLANDO (obstructive sleep apnea) Obstructive sleep apnea (adult) (pediatric) Type 2 diabetes mellitus without complication, without long-term current use of insulin ([facility]) Gastroenteritis Other and unspecified noninfectious gastroenteritis and colitis Iron deficiency anemia, unspecified iron deficiency anemia type Weight loss, unintentional- Primary Loss of weight Chronic respiratory failure with hypoxia ([facility]) Morbid (severe) obesity due to excess calories ([facility] Essential (primary) hypertension Unspecified essential hypertension Class 2 severe obesity due to excess calories with serious comorbidity and body mass index (BMI) of 37.0 to 37.9 in adult ([facility] Rash Rash and other nonspecific skin eruption Tobacco dependence syndrome Tobacco use disorder Anxiety and depression Mixed hyperlipidemia Mixed hyperlipidemia Iron deficiency anemia, unspecified iron deficiency anemia type Restless leg syndrome Restless legs syndrome (RLS) Primary hypertension Unspecified essential hypertension Gastroesophageal reflux disease without esophagitis Esophageal reflux Type 2 diabetes mellitus without complication, without long-term current use of insulin ([facility]) Edema of both lower extremities Nausea and vomiting, unspecified vomiting type Diarrhea, unspecified type Irritable bowel syndrome with diarrhea- Primary Irritable bowel syndrome Centrilobular emphysema ([facility]) Chronic respiratory failure with hypoxia ([facility]) Essential (primary) hypertension Unspecified essential hypertension Gastroesophageal reflux disease without esophagitis Esophageal reflux Class 2 severe obesity due to excess calories with serious comorbidity and body mass index (BMI) of 37.0 to 37.9 in adult ([facility] Occult blood positive stool Nonspecific abnormal finding [...] complication, without long-term current use of insulin ([facility]) Class 2 severe obesity due to excess calories with serious comorbidity and body mass index (BMI) of 37.0 to 37.9 in adult ([facility] Mixed hyperlipidemia Mixed hyperlipidemia Anxiety and depression Primary hypertension Unspecified essential hypertension Hypomagnesemia- Primary Disorders of magnesium metabolism LAINA (acute kidney injury) documented in this encounter [facility] HealthcareEvaluation note* Diagnosis Anxiety and depression- Primary Other insomnia Class 2 severe obesity due to excess calories with serious comorbidity and body mass index (BMI) of 37.0 to 37.9 in adult ([facility]) Type 2 diabetes mellitus without complication, without long-term current use of insulin ([facility]) ROLANDO (obstructive sleep apnea) Obstructive sleep apnea (adult) (pediatric) Other insomnia- Primary ROLANDO (obstructive sleep apnea) Obstructive sleep apnea (adult) (pediatric) COPD mixed type ([facility]) Tobacco dependence syndrome Tobacco use disorder BMI 37.0-37.9, adult Anxiety and depression Restless leg syndrome Restless legs syndrome (RLS) Other insomnia- Primary Anxiety and depression Restless leg syndrome Restless legs syndrome (RLS) Acute non-recurrent maxillary sinusitis Right upper quadrant abdominal pain Other fatigue- Primary Morbid (severe) obesity due to excess calories ([facility]) Essential (primary) hypertension Unspecified essential hypertension Body mass index (BMI) 37.0-37.9, adult Chronic respiratory failure with hypoxia ([facility]) Type 2 diabetes mellitus with other specified complication ([facility]) Atherosclerosis of aorta Mixed hyperlipidemia Mixed hyperlipidemia Anxiety and depression Restless leg syndrome Restless legs syndrome (RLS) Primary hypertension Unspecified essential hypertension Type 2 diabetes mellitus without complication, without long-term current use of insulin ([facility]) Right upper quadrant abdominal pain COPD mixed type ([facility]) Gastroesophageal reflux disease without esophagitis Esophageal reflux Anxiety and depression- Primary Mixed hyperlipidemia Mixed hyperlipidemia Restless leg syndrome Restless legs syndrome (RLS) Primary hypertension Unspecified essential hypertension Type 2 diabetes mellitus without complication, without long-term current use of insulin ([facility]) Other insomnia Rash- Primary Rash and other nonspecific skin eruption Essential (primary) hypertension Unspecified essential hypertension Edema of both lower extremities Class 2 severe obesity due to excess calories with serious comorbidity and body mass index (BMI) of 37.0 to 37.9 in adult [place] ROLANDO (obstructive sleep apnea) Obstructive sleep apnea (adult) (pediatric) Type 2 diabetes mellitus without complication, without long-term current use of insulin ([facility]) Gastroenteritis Other and unspecified noninfectious gastroenteritis and colitis Iron deficiency anemia, unspecified iron deficiency anemia type Weight loss, unintentional- Primary Loss of weight Chronic respiratory failure with hypoxia ([facility]) Morbid (severe) obesity due to excess calories ([facility] Essential (primary) hypertension Unspecified essential hypertension Class 2 severe obesity due to excess calories with serious comorbidity and body mass index (BMI) of 37.0 to 37.9 in adult ([facility] Rash Rash and other nonspecific skin eruption Tobacco dependence syndrome Tobacco use disorder Anxiety and depression Mixed hyperlipidemia Mixed hyperlipidemia Iron deficiency anemia, unspecified iron deficiency anemia type Restless leg syndrome Restless legs syndrome (RLS) Primary hypertension Unspecified essential hypertension Gastroesophageal reflux disease without esophagitis Esophageal reflux Type 2 diabetes mellitus without complication, without long-term current use of insulin ([facility]) Edema of both lower extremities Nausea and vomiting, unspecified vomiting type Diarrhea, unspecified type Irritable bowel syndrome with diarrhea- Primary Irritable bowel syndrome Centrilobular emphysema ([facility]) Chronic respiratory failure with hypoxia ([facility]) Essential (primary) hypertension Unspecified essential hypertension Gastroesophageal reflux disease without esophagitis Esophageal reflux Class 2 severe obesity due to excess calories with serious comorbidity and body mass index (BMI) of 37.0 to 37.9 in adult ([facility] Occult blood positive stool Nonspecific abnormal finding in stool contents Tobacco dependence syndrome Tobacco use disorder Anxiety and depression Encounter for wellness examination in adult- Primary Essential (primary) hypertension Unspecified essential hypertension Gastroesophageal reflux disease without esophagitis Esophageal reflux Type 2 diabetes mellitus without complication, without long-term current use of insulin ([facility]) Iron deficiency anemia, unspecified iron deficiency anemia [...] 37.9 in adult ([facility]) Mixed hyperlipidemia Mixed hyperlipidemia Anxiety and depression Primary hypertension Unspecified essential hypertension Hypomagnesemia- Primary Disorders of magnesium metabolism LAINA (acute kidney injury) Hypomagnesemia Disorders of magnesium metabolism documented in this encounter [facility] HealthcareHospital course Narrative No data available for this section [facility] No data available for this section [facility] note No data available for this section [facility] HospitalReason for referral (narrative)No reason for referral information [facility] Work Phone: Reason for visit Narrative* Consultation (Routine) - Closed Specialty Diagnoses / Procedures Referred By Contac t Referred To Contact Dermatology Diagnoses Rash Procedures RI OFFICE/OUTPATIENT [facility] HIGH MDM 60 MINUTES Brea Jj NP [address] [place] [address] Phone: tel: fax: Ladonna Bang, MEDICAL TRANSLATOR-RUG CLEANER HELPER [address] [facility] [address] [place] [address] Phone: tel: fax: Referral ID Status Reason Start Date Expiration Date V isits Requested Visits Authorized [id number] Closed Specialty Services Required 12/03/2024 06/01/2025 1 1 [facility] Healthcare Summary Purpose Family History Relationship [...] and content) DATE CREATED AUTHOR 06/22/2021 [facility] DATE CREATED AUTHOR AUTHOR'S ORGANIZ ATION 02/26/2023 [facility] DATE CREATED AUTHOR AUTHOR'S ORGANIZ ATION 07/17/2024 Grady Julito [facility] DATE CREATED AUTHOR AUTHOR'S ORGANIZ ATION 07/24/2024 Grady Lamoille [facility] DATE CREATED AUTHOR AUTHOR'S ORGANIZ ATION 01/15/2025 Grady Lamoille [facility] DATE CREATED AUTHOR AUTHOR'S ORGANIZ ATION 04/01/2025 [facility] DATE CREATED AUTHOR AUTHOR'S ORGANIZ ATION 05/29/2025 [facility] DATE CREATED AUTHOR AUTHOR'S ORGANIZ ATION 06/03/2025 [facility] Patient Care team informatio n (unrecognized section and content) Cabin Cleaner Relationship Specialty Start Date End Date Jose M Light MD [address] [place] [address] PCP - General Family Medicine 10/18/23 Brea Jj NP [address] [place] [address] Nurse Practitioner Family Medicine 10/18/23 Cabin Cleaner Relationship Specialty Start Date End Date Jose M Light MD [address] [place] [address] PCP - General Family Medicine 10/18/23 Brea Jj NP [address] [place] [address] Nurse Practitioner Family Medicine 10/18/23 Cabin Cleaner Relationship Specialty Start Date End Date Jose M Light MD [address] [place] [address] PCP - General [facility] 10/18/23 Brea Jj NP [address] [place] [address] Nurse Practitioner Family [facility] 10/18/23 Cabin Cleaner Relationship Specialty Start Date End Date Jose M Light MD [address] [place] [address] PCP - General [facility] 10/18/23 Brea Jj NP [address] [place] [address] [facility] 07/31/24 Brea Jj NP [address] [place] [address] Nurse Practitioner Family [facility] 10/18/23 Cabin Cleaner Relationship Specialty Start Date End Date Jose M Light MD [address] [place] [address] PCP - [facility] 10/18/23 Brea Jj NP [address] [place] [address] PCP [facility] 07/31/24 Brea Jj NP [address] [place] [address] Nurse Practitioner Family Medicine 10/18/23 Cabin Cleaner Relationship Specialty Start Date End Date Jose M Light MD [address] [place] [address] PCP - General [facility] 10/18/23 Brea Jj NP [address] [place] [address] [facility] 07/31/24 Brea Jj NP [address] [place] [address] Nurse Practitioner Family [facility] 10/18/23 Cabin Cleaner Relationship Specialty Start Date End Date Jose M Light MD [address] [place] [address] PCP - General Family [facility] 10/18/23 Brea Jj NP [address] [place] [address] Nurse Practitioner Family Medicine 10/18/23 Cabin Cleaner Relationship Specialty Start Date End Date Jose M Light MD [address] [place] [address] PCP - General [facility] 10/18/23 Brea Jj NP [address] [place] [address] Nurse Practitioner Family [facility] 10/18/23 Cabin Cleaner Relationship Specialty Start Date End Date Jose M Light MD [address] [place] [address] PCP - General [facility] 10/18/23 Brea Jj NP [address] [place] [address] Nurse Practitioner Family [facility] 10/18/23 Cabin Cleaner Relationship Specialty Start Date End Date Jose M Light MD [address] [place] [address] PCP - [facility] 10/18/23 Brea Jj NP [address] [place] [address] [facility] 07/31/24 Brea Jj NP [address] [place] [address] Nurse Practitioner [facility] 10/18/23 Cabin Cleaner Relationship Specialty Start Date End Date Jose M Light MD [address] [place] [address] PCP - [facility] 10/18/23 Brea Jj NP [address] [place] [address] [facility] 07/31/24 Brea Jj NP [address] [place] [address] Nurse Practitioner Family Medicine 10/18/23 Cabin Cleaner Relationship Specialty Start Date End Date Jose M Light MD [address] [place] [address] PCP - [facility] 10/18/23 Brea Jj NP [address] [place] [address] [facility] 07/31/24 Brea Jj NP [address] [place] [address] Nurse Practitioner [facility] 10/18/23 Cabin Cleaner Relationship Specialty Start Date End Date Jose M Light MD [address] [place] [address] PCP - [facility] 10/18/23 Brea Jj NP [address] [place] [address] [facility] 07/31/24 Brea Jj NP [address] [place] [address] Nurse Practitioner Family [facility] 10/18/23 Cabin Cleaner Relationship Specialty Start Date End Date Jose M Light MD [address] [place] [address] PCP - General [facility] 10/18/23 Brea Jj NP [address] [place] [address] PCP - [facility] 07/31/24 Brea Jj NP [address] [place] [address] Nurse Practitioner Family [facility] 10/18/23 Cabin Cleaner Relationship Specialty Start Date End Date Jose M Light MD [address] [place] [address] PCP - [facility] 10/18/23 Brea Jj NP [address] [place] [address] [facility] 07/31/24 Brea Jj NP [address] [place] [address] Nurse Practitioner [facility] 10/18/23 Cabin Cleaner Relationship Specialty Start Date End Date Jose M Light MD [address] [place] [address] PCP - [facility] 10/18/23 Brea Jj NP [address] [place] [address] [facility] 07/31/24 Brea Jj NP [address] [place] [address] Nurse Practitioner Family Medicine 10/18/23 Cabin Cleaner Relationship Specialty Start Date End Date Jose M Light MD [address] [place] [address] PCP - General [facility] 10/18/23 Brea Jj NP [address] [place] [address] [facility] 07/31/24 Brea Jj NP [address] [place] [address] Nurse Practitioner [facility] 10/18/23 Cabin Cleaner Relationship Specialty Start Date End Date Jose M Light MD [address] [place] [address] PCP - General [facility] 10/18/23 Brea Jj NP [address] [place] [address] [facility] 07/31/24 Brea Jj NP [address] [place] [address] Nurse Practitioner Family [facility] 10/18/23 Cabin Cleaner Relationship Specialty Start Date End Date Jose M Light MD [address] [place] [address] PCP - [facility] 10/18/23 Brea Jj NP [address] [place] [address] PCP - [facility] 07/31/24 Brea Jj NP [address] [place] [address] Nurse Practitioner [facility] 10/18/23 Cabin Cleaner Relationship Specialty Start Date End Date Jose M Light MD [address] [place] [address] PCP - [facility] 10/18/23 Brea jJ NP [address] [place] [address] [facility] - [facility] 07/31/24 Brea Jj NP [address] [place] [address] Nurse Practitioner [facility] 10/18/23 Cabin Cleaner Relationship Specialty Start Date End Date Jose M Light MD [address] [place] [address] PCP - [facility] 10/18/23 Brea Jj NP [address] [place] [address] PCP [facility] 07/31/24 Brea Jj NP [address] [place] [address] Nurse Practitioner Family [facility] 10/18/23 Cabin Cleaner Relationship Specialty Start Date End Date Jose M Light MD [address] [place] [address] PCP - General [facility] 10/18/23 Brea Jj NP [address] [place] [address] PCP - [facility] 07/31/24 Brea Jj NP [address] [place] [address] Nurse Practitioner Family [facility] 10/18/23 Cabin Cleaner Relationship Specialty Start Date End Date Jose M Light MD [address] [place] [address] PCP - General [facility] 10/18/23 Brea Jj NP [address] [place] [address] [facility] 07/31/24 Brea Jj NP [address] [place] [address] Nurse Practitioner Family [facility] 10/18/23 Cabin Cleaner Relationship Specialty Start Date End Date Jose M Light MD [address] [place] [address] PCP - General [facility] 10/18/23 Brea Jj NP [address] [place] [address] PCP - [facility] 07/31/24 Brea Jj NP [address] [place] [address] Nurse Practitioner [facility] 10/18/23 Cabin Cleaner Relationship Specialty Start Date End Date Jose M Light MD [address] [place] [address] PCP - [facility] 10/18/23 Brea Jj NP [address] [place] [address] [facility] 07/31/24 Brea Jj NP [address] [place] [address] Nurse Practitioner [facility] 10/18/23 Cabin Cleaner Relationship Specialty Start Date End Date Jose M Light MD [address] [place] [address] PCP - [facility] 10/18/23 Brea Jj NP [address] [place] [address] PCP [facility] 07/31/24 Brea Jj NP [address] [place] [address] Nurse Practitioner Family [facility] 10/18/23 Cabin Cleaner Relationship Specialty Start Date End Date Jose M Light MD [address] [place] [address] PCP - General [facility] 10/18/23 Brea Jj NP [address] [place] [address] PCP [facility] 07/31/24 Brea Jj NP [address] [place] [address] Nurse Practitioner Family [facility] 10/18/23 Cabin Cleaner Relationship Specialty Start Date End Date Jose M Light MD [address] [place] [address] PCP - [facility] 10/18/23 Brea Jj NP [address] [place] [address] [facility] 07/31/24 Brea Jj NP [address] [place] [address] Nurse Practitioner Family [facility] 10/18/23 Cabin Cleaner Relationship Specialty Start Date End Date Jose M Light MD [address] [place] [address] PCP - General [facility] 10/18/23 Brea Jj NP [address] [place] [address] PCP - [facility] 07/31/24 Brea Jj NP [address] [place] [address] Nurse Practitioner Family [facility] 10/18/23 Cabin Cleaner Relationship Specialty Start Date End Date Jose M Light MD [address] [place] [address] PCP - [facility] 10/18/23 Brea Jj NP [address] [place] [address] [facility] 07/31/24 Brea Jj NP [address] [place] [address] Nurse Practitioner Family [facility] 10/18/23 Cabin Cleaner Relationship Specialty Start Date End Date Jose M Light MD [address] [place] [address] PCP - General [facility] 10/18/23 Brea Jj NP [address] [place] [address] [facility] 07/31/24 Brea Jj NP [address] [place] [address] Nurse Practitioner Family Medicine 10/18/23 Cabin Cleaner Relationship Specialty Start Date End Date Jose M Light MD [address] [place] [address] PCP - [facility] 10/18/23 Brea Jj NP [address] [place] [address] PCP - [facility] 07/31/24 Brea Jj NP [address] [place] [address] Nurse Practitioner [facility] 10/18/23 Team Status: Active Member Role Status [...] May 28, 2025 End: May 29, 2025 Cabin Cleaner Relationship Specialty Start Date End Date Jose M Light MD [address] [place] [address] PCP - General [facility] 10/18/23 Brea Jj NP [address] [place] [address] PCP - [facility] 07/31/24 Brea Jj NP [address] [place] [address] Nurse Practitioner Family [facility] 10/18/23 Cabin Cleaner Relationship Specialty Start Date End Date Jose M Light MD [address] [place] [address] PCP - [facility] 10/18/23 Brea Jj NP [address] [place] [address] [facility] 07/31/24 Brea Jj NP [address] [place] [address] Nurse Practitioner [facility] 10/18/23 Cabin Cleaner Relationship Specialty Start Date End Date Jose M Light MD [address] [place] [address] PCP - General [facility] 10/18/23 Brea Jj NP [address] [place] [address] PCP [facility] 07/31/24 Brea Jj NP [address] [place] [address] Nurse Practitioner Family Medicine 10/18/23 Cabin Cleaner Relationship Specialty Start Date End Date Jose M Light MD [address] [place] [address] PCP - General [facility] 10/18/23 Brea Jj NP [address] [place] [address] PCP [facility] 07/31/24 Brea Jj NP [address] [place] [address] Nurse Practitioner Family [facility] 10/18/23 Cabin Cleaner Relationship Specialty Start Date End Date Jose M Light MD [address] [place] [address] PCP - General [facility] 10/18/23 Brea Jj NP [address] [place] [address] [facility] 07/31/24 Brea Jj NP [address] [place] [address] Nurse Practitioner Family [facility] 10/18/23 Cabin Cleaner Relationship Specialty Start Date End Date Jose M Light MD [address] [place] [address] PCP - General Family [facility] 10/18/23 Brea Jj NP [address] [place] [address] PCP - [facility] 07/31/24 Brea Jj NP [address] [place] [address] Nurse Practitioner [facility] 10/18/23 Cabin Cleaner Relationship Specialty Start Date End Date Jose M Light MD [address] [place] [address] PCP - [facility] 10/18/23 Brea Jj NP [address] [place] [address] [facility] - [facility] 07/31/24 Brea Jj NP Nurse Practitioner [facility] 10/18/23 Reason for Visit (unrecogniz ed section [...] BE BASED ON THE PRIMARY CLINICAL RECORDS. [facility] [employer] [facility]. provides no warranty or guarantee of the accuracy or completeness of information in this document.
[2025-07-10 19:11] LABS: SARS-CoV-2 Ag NEGATIVE (NEGATIVE)
--- NOTE | 2025-07-10 19:50 | XR_ITS ---
The [place] [id number] Patient Name: ALIYA CONDON MRN: [id number] date: 1965 Sex: F Assigned Patient Location: ED.MAIN Current Patient Location: ED.MAIN Accession/Order Number: [id number] Exam Date: 07/10/2025 20:19 Report Date: 07/10/2025 21:24 At the request of: LISA MARTINEZ Procedure: XR chest 2V PA AND LATERAL CHEST: CLINICAL HISTORY: short of breath COMPARISON: 02/21/2025 FINDINGS: Upper limits cardiomediastinal. Minor central congestion and perihilar prominence of the perihilar vasculature.. No focal opacity effusion or pneumothorax. XR/XR chest 2V IMPRESSION: Findings suggestive of mild CHF. Negative acute pleural-parenchymal disease. Impression dictated by: Jaison Hahn M.D. 07/10/2025 9:24 PM Dictation Location: [place] [address] Electronically authenticated by: [id number] Date: 07/10/2025 21:24
--- NOTE | 2025-07-10 19:53 | ED.URI1 ---
HPI - URI/Sore Throat General Chief Complaint: Upper Respiratory Infection Stated Complaint: SOB, HEADACHE, SORE THROAT Time Seen by Provider: 07/10/25 19:08 Source: patient Limitations: no limitations History of Present Illness HPI Narrative: 59-year-old female with a history of COPD presents with some shortness of breath, worsening over the past 4 days. She reports persistant oxygen requirements ? usually uses supplemental oxygen in the evenings but now needs it throughout the day. Currently on 3 L nasal cannula, saturating 93%. She reports cough with thick sputum and recent onset of sore throat, but denies fever at home (temperature in ED 99?F), chest pressure, palpitations, nausea, vomiting, diarrhea, or other systemic symptoms. She had a runny nose earlier last week. Home medications include albuterol and theophylline. Shortness of breath worsens with exertion but is present at rest. Related Data Home Medications ?Medication ?Instructions ?Recorded ?Confirmed albuterol sulfate 90 mcg/actuation 2 inh inhalation Q4H PRN shortness 03/31/24 05/28/25 aerosol inhaler of breath or wheezing aspirin 81 mg tablet,delayed 81 mg PO DAILY 03/31/24 05/28/25 release atorvastatin 40 mg tablet 40 mg PO DAILY 03/31/24 05/28/25 buspirone 15 mg tablet 15 mg PO BID 03/31/24 05/28/25 calcium 600 mg (as 1 tab PO BID 03/31/24 05/28/25 carbonate)-vitamin D3 5 mcg (200 unit) tablet celecoxib 200 mg capsule 200 mg PO Q24H 03/31/24 05/28/25 clonazepam 0.5 mg tablet 0.5 mg PO BEDTIME 03/31/24 05/28/25 duloxetine 60 mg capsule,delayed 60 mg PO DAILY 03/31/24 05/28/25 release ferrous sulfate 325 mg (65 mg mg 03/31/24 iron) tablet (FeroSul) fluticasone propionate 110 2 inh inhalation DAILY 03/31/24 05/28/25 mcg/actuation HFA aerosol inhaler furosemide 20 mg tablet 20 mg PO DAILY 03/31/24 05/28/25 gabapentin 300 mg capsule 300 mg PO DAILY 03/31/24 05/28/25 glycopyrrolate 9 mcg-formoterol 2 inh inhalation Q12H 03/31/24 05/28/25 4.8 mcg HFA aerosol inhaler (Bevespi Aerosphere) ipratropium 0.5 mg-albuterol 3 mg 3 ml inhalation Q6H 03/31/24 05/28/25 (2.5 mg base)/3 mL nebulization soln lamotrigine 25 mg tablet 50 mg PO BEDTIME 03/31/24 05/28/25 lisinopril 20 1 tab PO DAILY 03/31/24 05/28/25 mg-hydrochlorothiazide 25 mg tablet multivitamin 1 tab PO DAILY 03/31/24 05/28/25 pioglitazone 15 mg tablet 15 mg PO DAILY 03/31/24 05/28/25 potassium chloride 10 mEq 10 meq PO DAILY 03/31/24 05/28/25 tablet,extended release pramipexole 0.5 mg tablet 0.5 mg PO BEDTIME 03/31/24 05/28/25 theophylline 300 mg 450 mg PO Q24H 03/31/24 05/28/25 tablet,extended release,12 hr metoprolol succinate 25 mg 25 mg PO DAILY 05/28/25 05/28/25 tablet,extended release 24 hr pantoprazole 40 mg tablet,delayed 40 mg PO DAILY 05/28/25 05/28/25 release theophylline 300 mg 300 mg PO QDAY 05/28/25 05/28/25 capsule,extended release 24 hr Previous Rx's ?Medication ?Instructions ?Recorded amoxicillin 875 mg-potassium 1 tab PO BID #20 tabs 07/10/25 clavulanate 125 mg tablet ipratropium bromide 17 1 inh inhalation Q6H PRN wheezing 07/10/25 mcg/actuation HFA aerosol inhaler #12.9 grams prednisone 20 mg tablet 40 mg (2 x 20 mg) PO DAILY 4 days 07/10/25 #8 tabs Allergies Allergy/AdvReac Type Severity Reaction Status Date / Time No Known Drug Allergies Allergy Verified 07/10/25 18:41 [facility] Medical History (Updated 07/10/25 @ 21:25 by Carlo Santiago) COPD (chronic obstructive pulmonary disease) ?J44.9 - Chronic obstructive pulmonary disease, unspecified (ICD-10) Hyperlipemia ?E78.5 - Hyperlipidemia, unspecified (ICD-10) HTN (hypertension) ?I10 - Essential (primary) hypertension (ICD-10) delivery delivered ?O82 - Encounter for delivery without indication (ICD-10) Social History (Updated 05/28/25 @ 14:34 by Jaycee Leon) Within the past year, how often did you have a drink containing alcohol: never Score interpretation: A score less than 3 is consistent with normal alcohol consumption. 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 HEENT: Pharynx very erythematous, no exudate, no nuchal rigidity, no cervical lymphadenopathy. Whitish discharge in the corners of the eyes. Nasal passages red, boggy, with discharge.vision normal. tenderness in the maxillary sinuses on percussion. Cardiac: Heart sounds normal, regular rate and rhythm. Respiratory: Poor air movement throughout lung castro, fine expiratory wheezing, no rales or crackles. Abdomen: Soft, non-tender, no rebound or guarding. Extremities: No pedal edema. Neuro / Mental Status: Mentation normal, alert and oriented ?3. COVID-19 test: Negative. Constitutional Vital Signs, click to edit/add: Last Vital Signs Temp 99 F 07/10/25 18:41 Pulse 92 H 07/10/25 21:40 Resp 22 H 07/10/25 21:40 BP 129/64 07/10/25 21:31 Pulse Ox 95 07/10/25 21:40 O2 Del Method Nasal Cannula 07/10/25 20:26 O2 Flow Rate 3 07/10/25 20:26 Course Vital Signs Vital signs: Vital Signs Temperature 99 F 07/10/25 18:41 Pulse Rate 85 07/10/25 18:41 Respiratory Rate 20 07/10/25 18:41 Blood Pressure 139/63 07/10/25 18:41 Pulse Oximetry 93 L 07/10/25 18:41 Oxygen Delivery Method Nasal Cannula 07/10/25 18:41 Oxygen Delivery Flow Rate 3 07/10/25 18:41 Temperature 99 F 07/10/25 18:41 Pulse Rate 92 H 07/10/25 21:40 Respiratory Rate 22 H 07/10/25 21:40 Blood Pressure 129/64 07/10/25 21:31 Pulse Oximetry 95 07/10/25 21:40 Oxygen Delivery Method Nasal Cannula 07/10/25 20:26 Oxygen Delivery Flow Rate 3 07/10/25 20:26 MDM - URI/Sore Throat MDM Narrative Medical decision making narrative: Patient presents with acute sinusitis symptoms (nasal congestion, facial pressure, purulent nasal discharge,) and COPD exacerbation (increased cough, wheezing, and shortness of breath). No chest pain. Exam notable for mild diffuse wheezing, erythematous and boggy nasal passages with discharge, Tenderness on the maxillary sinuses, and no signs of orbital or systemic infection. Patient is hemodynamically stable with normal mentation and oxygen saturation on home oxygen. Laboratory evaluation and imaging were not indicative of pneumonia. Given the combination of COPD exacerbation and bacterial sinusitis, the patient is started on Augmentin for sinus infection, prednisone to reduce airway inflammation, and Atrovent (ipratropium) inhaler for symptomatic wheezing. Supportive care includes hydration, continued use of home COPD inhalers, and symptom monitoring. Patient is stable for discharge with instructions for close follow-up with primary care or pulmonology. She was ambulatory with her home oxygen at this time.She was agreeable to discharge with this treatment and follow up with her PCP Return precautions: Seek immediate care for worsening shortness of breath, hypoxia, chest pain, high fever, vision changes, severe headache, or inability to manage secretions. Differential Diagnosis Differential diagnosis: Likely upper respiratory infection, sinusitis, viral infection, bronchitis, influenza and pharyngitis Medical Records Attestation: I reviewed the patient's medical records. Lab Data Attestation: I reviewed the patient's lab results. Labs: Lab Results 07/10/25 07/10/25 Range/Units 18:51 20:15 WBC 6.4 (4.0-11.0) 10^3/uL RBC 4.55 (4.20-5.40) 10^6/uL Hgb 13.7 (12.0-16.0) g/dL Hct 41.6 (36.0-48.0) % MCV 91.4 (81.0-99.0) fL MCH 30.1 (26.7-34.0) pg MCHC 32.9 (29.9-35.2) g/dL RDW 15.4 H (11.0-15.0) % Plt Count 161 (150-450) 10^3/uL MPV 12.1 (9.5-13.5) fL Neut % (Auto) 65.3 (43.0-75.0) % Lymph % (Auto) 20.0 L (20.5-60.0) % [place] % (Auto) 10.0 (1.7-12.0) % Eos % (Auto) 4.2 (0.9-7.0) % Baso % (Auto) 0.2 (0.2-2.0) % Neut # (Auto) 4.2 (1.4-6.5) 10^3/uL Lymph # (Auto) 1.3 (1.2-3.8) 10^3/uL [place] # (Auto) 0.6 (0.3-0.8) 10^3/uL Eos # (Auto) 0.3 (0.0-0.7) 10^3/uL Baso # (Auto) 0.0 (0.0-0.1) 10^3/uL Abs Immat Gran (auto) 0.02 (0.00-0.03) 10^3/uL Imm/Tot Granulo (auto) 0.3 (0.0-0.5) % Sodium 143 (136-145) mmol/L Potassium 3.9 (3.5-5.1) mmol/L Chloride 103 (98-107) mmol/L Carbon Dioxide 35.0 H (21.0-32.0) mmol/L Anion Gap 8.9 BUN 9.0 (7.0-18.0) mg/dL Creatinine 0.70 (0.55-1.02) mg/dL Est GFR ( Amer) >60 (>=60 mL/min/1.73m^2) Est GFR (Non-Af Amer) >60 (>=60 mL/min/1.73m^2) BUN/Creatinine Ratio 12.9 Glucose 122 H (74-106) mg/dL Calcium 9.7 (8.5-10.1) mg/dL Troponin I High Sens 9.5 (4.0-51.3) pg/mL NT-Pro-B Natriuret Pep 257.0 (<=900.0) pg/mL Influenza Type A Ag Negative Influenza Type B Ag Negative SARS-CoV-2 Ag (CV2AG) Negative (NEGATIVE) Imaging Data Chest x-ray: Attestation: I have reviewed the pertinent imaging results. My impression: Per Dr. Gambino: NO acute process. Radiologist's impression: ITS Impressions Chest X-Ray 07/10/25 19:50 IMPRESSION: Findings suggestive of mild CHF. Negative acute pleural-parenchymal disease. Impression dictated by: Jaison Hahn M.D. 07/10/2025 9:24 PM Dictation Location: [place] [address] Electronically authenticated by: [id number] Y Date: 07/10/2025 21:24 Discharge Plan Discharge Chief Complaint: Upper Respiratory Infection Clinical Impression: COPD exacerbation, Sinusitis Patient Disposition: Home, Self-Care Time of Disposition Decision: 21:25 Condition: Good Prescriptions / Home Meds: New prednisone 20 mg tablet 40 mg PO DAILY 4 Days Qty: 8 0RF ipratropium bromide 17 mcg/actuation HFA aerosol inhaler 1 inh inhalation Q6H PRN (Reason: wheezing) Qty: 12.9 0RF amoxicillin-pot clavulanate 875-125 mg tablet 1 tab PO BID Qty: 20 0RF No Action theophylline 300 mg capsule,extended release 24hr 300 mg PO QDAY metoprolol succinate 25 mg tablet extended release 24 hr 25 mg PO DAILY pantoprazole 40 mg tablet,delayed release (DR/EC) 40 mg PO DAILY aspirin 81 mg tablet,delayed release (DR/EC) 81 mg PO DAILY albuterol sulfate 90 mcg/actuation HFA aerosol inhaler 2 inh INHALATION Q4H PRN (Reason: shortness of breath or wheezing) multivitamin Tablet 1 tab PO DAILY celecoxib 200 mg capsule 200 mg PO Q24H pioglitazone 15 mg tablet 15 mg PO DAILY atorvastatin 40 mg tablet 40 mg PO DAILY ipratropium-albuterol 0.5 mg-3 mg(2.5 mg base)/3 mL solution for nebulization 3 ml INHALATION Q6H clonazepam 0.5 mg tablet 0.5 mg PO BEDTIME potassium chloride 10 mEq tablet extended release 10 meq PO DAILY calcium carbonate-vitamin D3 600 mg-5 mcg (200 unit) tablet 1 tab PO BID theophylline 300 mg tablet extended release 12 hr 450 mg PO Q24H lamotrigine 25 mg tablet 50 mg PO BEDTIME pramipexole 0.5 mg tablet 0.5 mg PO BEDTIME ferrous sulfate [FeroSul] 325 mg (65 mg iron) tablet gabapentin 300 mg capsule 300 mg PO DAILY lisinopril-hydrochlorothiazide 20-25 mg tablet 1 tab PO DAILY furosemide 20 mg tablet 20 mg PO DAILY fluticasone propionate 110 mcg/actuation HFA aerosol inhaler 2 inh INHALATION DAILY buspirone 15 mg tablet 15 mg PO BID duloxetine 60 mg capsule,delayed release(DR/EC) 60 mg PO DAILY Bevespi Aerosphere 9-4.8 mcg HFA aerosol inhaler 2 inh INHALATION Q12H Print Language: Turkmen Instructions: Sinusitis (ED), COPD (Chronic Obstructive Pulmonary Disease) (ED) Additional Instructions: Diagnosis: Acute sinusitis and COPD exacerbation Medications: Augmentin (Amoxicillin-Clavulanate): Take as prescribed until all doses are finished, even if you start to feel better. Helps treat sinus infection. Atrovent (Ipratropium) inhaler: Use as directed to help open your airways and reduce wheezing. Prednisone (oral steroid): Take exactly as prescribed to reduce airway inflammation. Finish the course unless your doctor instructs otherwise. Home Care: Continue your usual COPD inhalers as prescribed. Stay hydrated and rest. Avoid smoking or exposure to smoke and other irritants. Use a humidifier or inhale steam if congested to help sinus drainage. Monitor for symptom improvement: cough, wheezing, shortness of breath, nasal congestion. Follow-Up: Follow up with your primary care provider or fruit farmworker within 1 week or as instructed. Return to the ED immediately if you develop: Worsening shortness of breath or difficulty breathing Chest pain or pressure High fever (>=01?F) or chills New or worsening wheezing not relieved by inhalers Confusion, severe fatigue, or inability to take medications Expected Course: Sinus infection symptoms (congestion, facial pressure) usually improve in 5?7 days. COPD symptoms (wheezing, shortness of breath) may improve within a few days with inhaler and steroid therapy. Referrals: Brea Jj NP [Primary Care Provider, Family Practice] - 1 week
[2025-07-10] MEDS: IPRATROPIUM/ALBUTEROL SULFATE 3 ML AMPUL.NEB IH (20:26)
[2025-07-10 20:31] LABS: Hematocrit 41.6 % (36.0-48.0); Hemoglobin 13.7 g/dL (12.0-16.0); Immature Granulocytes Abs Auto 0.02 10^3/uL (0.00-0.03); Immature Granulocytes Pct Auto 0.3 % (0.0-0.5); Lymphocytes Absolute Auto 1.3 10^3/uL (1.2-3.8); Mean Corpuscular HGB Conc 32.9 g/dL (29.9-35.2); Mean Corpuscular Hemoglobin 30.1 pg (26.7-34.0); Mean Corpuscular Volume 91.4 fL (81.0-99.0); Platelet Count 161 10^3/uL (150-450); Red Blood Count 4.55 10^6/uL (4.20-5.40); White Blood Count 6.4 10^3/uL (4.0-11.0)
[2025-07-10] MEDS: METHYLPREDNISOLONE SOD SUCC PF 125 MG/2 ML VIAL IVP (20:55)
--- NOTE | 2025-07-10 20:58 | PC.NURSE ---
this patient updated that not all of the test results are back. this patient sitting upright on the bed awake and alert watching tv. this patient voices no concerns, needs and shows no signs of distress
[2025-07-10 21:02] LABS: Anion Gap 8.9; Blood Urea Nitrogen 9.0 mg/dL (7.0-18.0); Calcium 9.7 mg/dL (8.5-10.1); Carbon Dioxide 35.0 mmol/L (21.0-32.0); Chloride 103 mmol/L (98-107); Estimated GFR (African America >60 (>=60 mL/min/1.73m^2); Estimated GFR (Non-African Ame >60 (>=60 mL/min/1.73m^2); Glucose 122 mg/dL (74-106); NT Pro B Type Natriuretic Pept 257.0 pg/mL (<=900.0); Potassium 3.9 mmol/L (3.5-5.1); Sodium 143 mmol/L (136-145)
[2025-07-10] MEDS: AMOXICILLIN/POT CLAV 875-125 MG TABLET 1 TAB PO (21:48)
--- NOTE | 2025-07-10 21:55 | PC.NURSE ---
i gave this patient verbal and written discharge orders along with 3 e-scripts and this patient voices yes to understanding these. at time of discharge this patient voices no concerns, needs and shows no signs of distress
== END 2025-07-10 21:57 | disposition home or self-care (01) ==
PROVIDERS: Emergency Medicine; Physician Assistant; Emergency Provider Emergency Medicine; PCP Nurse Practitioner
DX: J44.1 Chronic obstructive pulmonary disease with (acute) exacerbation (principal); J01.90 Acute sinusitis, unspecified; F17.200 Nicotine dependence, unspecified, uncomplicated; B96.89 Other specified bacterial agents as the cause of diseases classified elsewhere; Z99.81 Dependence on supplemental oxygen
CPT/HCPCS: 36415; 71046; 80048; 83880; 84484; 85025; 87804; 87811; 94640; 96374; 99285; J2919

== ENCOUNTER 2025-07-17 09:29 | Outpatient (OUT) | payer OTHER, SELFPAY ==
--- OUTSIDE RECORDS SUMMARY | 2025-07-17 09:33 | XMS_ITS | Encounter Summary ---
Author Organization [facility] Address [address] [facility] [place] [address] Care Team Providers Care Global Professional Name Role Phone Brea Jj ENZYME CHEMIST Unavailable [phone] Jose M Light MD Primary Care Provider [phone] Brea Jj ENZYME CHEMIST Unavailable [phone] Tram Crooks AVIONICS SYSTEM ENGINEER Unavailable Diana Stephen AVIONICS SYSTEM ENGINEER Unavailable [phone] Encounter Details Date Type Department Care Team (Late st Contact Info) Description 10/19/2023 Abstract [facility] [address] [place] [address] Brea Jj, ENZYME CHEMIST [address] [place] [address] Social History Tobacco Use Types Packs/Day Years [...] on filedocumented in this encounter Care Teams Global Professional Relationship Specialty Start Date End Date Jose M Light MD PCP - General Family Medicine 10/18/23 Brea Jj NP [address] [place] [address] PCP - [facility] 07/31/24 Brea Jj NP Nurse Practitioner Family Medicine 10/18/23 Tram Crooks, AVIONICS SYSTEM ENGINEER [address] [place] [address] Credit Collections Rep Manuscript Editor 11/14/24 11/15/24 Diana Stephen, AVIONICS SYSTEM ENGINEER [address] [place] [address] Credit Collections Rep Family Medicine 11/15/24 11/26/24 documented as of this encounter
--- OUTSIDE RECORDS SUMMARY | 2025-07-17 09:33 | XMS_ITS | Encounter Summary ---
Author Organization [facility] Address [address] [facility] [place] [address] Care Team Providers Care Fur Tanner Name Role Phone Brea Jj BUSINESS INTELLIGENCE ARCHITECT Unavailable [phone] Jose M Light MD Primary Care Provider [phone] Brea Jj BUSINESS INTELLIGENCE ARCHITECT Unavailable [phone] Encounter Details Date Type Department Care Team (Late st Contact Info) Description 05/29/2025 Abstract [facility] [address] [place] [address] Brea Jj BUSINESS INTELLIGENCE ARCHITECT [address] [facility] [place] [address] Social History Tobacco Use Types Packs/Day Years [...] on filedocumented in this encounter Care Teams Fur Tanner Relationship Specialty Start Date End Date Jose M Light MD PCP - General Family Medicine 10/18/23 Brea Jj NP [address] [place] [address] PCP - [facility] 07/31/24 Bera Jj NP Nurse Practitioner Family Medicine 10/18/23 documented as of this encounter
--- OUTSIDE RECORDS SUMMARY | 2025-07-17 09:33 | XMS_ITS | Encounter Summary ---
Author Organization [facility] Address [address] [facility] [place] [address] Care Team Providers Care Laminating Machine Tender Name Role Phone Brea Jj BROOMCORN SEEDER Unavailable [phone] Jose M Light MD Primary Care Provider [phone] Brea Jj BROOMCORN SEEDER Unavailable [phone] Tram Crooks LIME SLUDGE KILN OPERATOR Unavailable Diana Stephen LIME SLUDGE KILN OPERATOR Unavailable [phone] Encounter Details Date Type Department Care Team (Late st Contact Info) Description 04/16/2024 Clinisync Result Encounter [facility] External Department Unsolicited Brea Jj NP [address] [place] [address] Social History Tobacco Use Types Packs/Day Years [...] on file documented as of this encounter Procedures Procedure Name Priority Date/Time Associated Diagnosis Comments MM TOMOSYNTHESIS SCREENING BI 04/16/2024 3:04 PM EDT documented in this encounter Results * MM TOMOSYNTHESIS SCREENING BI (04/16/2024 3:04 PM EDT) Anatomical Region Laterality Modality Other 04/16/2024 3:04 PM EDT Narrative 04/16/2024 3:05 [place] [address] Mammography Report Signed Patient: SIS MOORE MR#: [id number] : 1965 Acct:[id number] Age/Sex: 58 / F ADM Date: 04/16/24 Loc: MAMMO Attending Dr: Brea Jj NP Ordering Physician: Brea Jj NP Results: Date of Service: 04/16/24 Follow Up: Procedure(s): MM tomosynthesis screening BI Accession Number(s): [id number] cc: Brea Jj NP Patient Name: SIS MOORE MR#: [id number] : 1965 Exam Date: 04/16/2024 Ordering Doctor: [...] Treatments None Family Cancers None LOCATION: [facility] BREAST COMPOSITION: The breasts are almost entirely [...] PALPABLE LUMP SHOULD BE BIOPSIED. Dictated by: aPpito Downs M.D. on 04/16/2024 at 14:17 Approved by: Papito Downs M.D. on 04/16/2024 at 15:04 Dictated By: Papito Downs M.D. Signed By: 04/16/24 1505 DD/ 1504 TD/TT: Thermal Surfacing Machine Operator: Procedure Note Radiology, Radiologist, MD - 04/16/2024 [place] [address] Mammography Report Signed Patient: SIS MOORE JMR#: [id number] : 1965Acct:[id number] Age/Sex: 58 / FADM Date: 04/16/24 Loc: MAMMO Attending Dr: Brea Jj NP Ordering Physician: Brea Jj NPResults: Date of Service: 04/16/24Follow Up: Procedure(s): MM tomosynthesis screening BI Accession Number(s): [id number] cc: Brea Jj NP Patient Name: SIS MOORE MR#: [id number] : 1965 Exam Date: 04/16/2024 Ordering Doctor: ENRIQUE Jj IN PROCESS INSPECTOR RADIOLOGY REPORT PROCEDURE: MM TOMOSYNTHESIS SCREENING BI COMPARISON: MM TOMOSYNTHESIS SCREENING BI, 04/14/2023. MG MAMM [id number] EMY CAD, 04/30/2022. MG MAMM SCREEN 3D EMY CAD, 04/29/2021. MG MAMM BILSCRN W CAD DIG, 09/05/2007. INDICATIONS: Screening Calculator Name NCI Breast Cancer Risk Assessment Tool 5 Year Breast Cancer Risk 0.90% Lifetime Breast Cancer Risk 5.00% Personal Breast Cancer No Personal Ovarian Cancer No Treatments None Family Cancers None LOCATION: [facility] BREAST COMPOSITION: The breasts are almost entirely [...] M.D. Signed By:04/16/24 1505 DD/ 1504 TD/TT: Thermal Surfacing Machine Operator: Brea Jj NP [facility] Final Result documented in this encounter Visit Diagnoses Not on filedocumented in this encounter Care Teams Laminating Machine Tender Relationship Specialty Start Date End Date Jose M Light MD PCP - General Family Medicine 10/18/23 Brea Jj NP [address] [facility] [place] [address] PCP - [facility] 07/31/24 Brea Jj NP Nurse Practitioner Family Medicine 10/18/23 [place] [address] [place], [place] [id number] Job Change Crew Member Cartographic Aide 11/14/24 11/15/24 Diana Stephen, LIME SLUDGE KILN OPERATOR [address] [place] [address] Job Change Crew Member Family Medicine 11/15/24 11/26/24 documented as of this encounter
--- OUTSIDE RECORDS SUMMARY | 2025-07-17 09:33 | XMS_ITS | Encounter Summary ---
Author Organization [facility] Address [address] [facility] [place] [address] Care Team Providers Care Housing Management Officer Name Role Phone Brea Jj CUSTOMER CARE ASSOCIATE Unavailable [phone] Jose M Light MD Primary Care Provider [phone] Brea Jj CUSTOMER CARE ASSOCIATE Unavailable [phone] Encounter Details Date Type Department Care Team (Late st Contact Info) Description 05/28/2025 Orders Only [facility] [address] [place] [address] Sheldon Mckee MD [address] [place], [place] [id number] Social History Tobacco Use Types Packs/Day Years [...] Modality Body, Pelvis, Abdomen Computed T omography us Sheldon Mckee MD IMG CT PROCEDURES Final Resul t documented in this encounter Visit Diagnoses Not on filedocumented in this encounter Care Teams Housing Management Officer Relationship Specialty Start Date End Date Jose M Light MD PCP - General Family Medicine 10/18/23 Brea Jj NP [address] [place] [address] PCP - [facility] 07/31/24 Brea Jj NP Nurse Practitioner Family Medicine 10/18/23 documented as of this encounter
--- OUTSIDE RECORDS SUMMARY | 2025-07-17 09:33 | XMS_ITS | Patient Health Record ---
Author Organization [facility] in [place] Address [address] [place] [address] Care Team Providers Care Peer Tutor Name Role Phone Brea Jj CNP Primary Care Provider Unavail able Calvin Gaines Unavailable [phone] Allergies No Known Allergies Results Component Value Reference Range Notes CT lung screening low-dose ( Not yet reviewed by provider) Interpretation: Performing Lab: Notes/Report: Source Facility: [place] [address] CT Scan Report Signed Patient: SIS MOORE MR#: [id number] : 1965 Acct:[id number] Age/Sex: 59 / F ADM Date: 06/24/25 Loc: CT Attending Dr: Calvin Gaines D.O. Ordering Physician: Calvin Gaines D.O. Date of Service: 06/24/25 Procedure(s): CT lung screening low-dose Accession Number(s): [id number] cc: Brea Jj NP [place] [id number] Patient Name: SIS MOORE MRN: [id number] date: 1965 Sex: F Assigned Patient Location: CT Current Patient Location: CT Accession/Order Number: [id number] Exam Date: 06/24/2025 10:08 Report Date: 06/24/2025 11:52 At the request of: CALVIN GAINES DO Procedure: CT lung screening low-dose [...] Rasmussen M.D. 06/24/2025 11:52 AM Dictation Location: [place] [address] Electronically authenticated by: [id number] Y Date: 06/24/2025 11:52 Dictated By: Krystyna Rasmussen M.D. Signed By: 06/24/25 1155 DD/ 1152 TD/TT: Mirror Painter: CT Chest Low Dose for Screen ing* Reviewed date:06/24/2025 01:46:56 PM Interpretation: Performing Lab: Notes/Report: Reason For Referral No Information Medications Medication SIG (Take, Route, Frequency, Duration) Notes Start Date End Date Status Bevespi Aerosphere 9-4.8 MCG/ACT 2 puffs Inhalation BID; Duration: 90 days Dispense #3 inhalers Active Theophylline ER 300 mg 1 + 1/2 tablets o ral BID; Duration: 90 days Active Fluticasone Propionate HFA 110 MCG/ACT 2 puffs Inhalation BID; Duration: 90 days Rinse after use ; Dispense #3 inhalers 10/09/2024 Active predniSONE 20 MG 3 tabs x 3 days, 2 tabs x 3 days, 1 tab x 3 days Orally Once a day; Duration: 9 days Take with food 02/19/2025 Active [...] (0.5 M G) BY MOUTH AT BEDTIME Oral; Duration: 30 Days Active Lisinopril-hydroCHLOROthiazi d e 20-25 MG 1 tablet Orally Once a day Active Pioglitazone HCl 15 MG 1 tablet Orally O nce a day Active FeroSul 325 (65 Fe) MG TAKE ONE TABLET B Y MOUTH ONCE DAILY Oral; Duration: 28 Days Active Fluticasone Propionate 50 MCG/ACT 2 sprays in each nostril Nasally Once a day; Duration: 30 days Active Aspirin 81 81 MG [...] BY MOUTH ONCE DAILY IN THE MORNING Oral; Duration: 30 Days Active Lasix 20 MG 1 tablet Orally Once a day Active Gabapentin 300 MG 1 capsule Orally Onc e a day Active busPIRone HCl 15 MG 1 tablet Orally Twic e a day Active Ipratropium-Albuterol 0.5-2. 5 (3) MG/3ML 3mL Inhalation QID; Duration: 90 days Active Albuterol Sulfate HFA 108 (9 0 Base) MCG/ACT 2 puffs as needed for SOB Inhalation every 4 hrs; Duration: 90 days Dispense #3 inhalers Active Immunizations [...] Problem Status W/U Status Risk Notes Problem Chronic obstructive pulmonary disease (42828501) Chronic obstructive pulmonary disease, unspecified (J44.9) Active confirmed Problem Obesity (152630732) Obesity, unspecified (E66.9) Active confirmed Problem Chronic respiratory failure (42930752) Chronic respiratory failure with hypoxia (J96.11) Active confirmed Problem Long-term current use of inhaled steroid (606097985) detention (current) use of inhaled steroids (Z79.51) Active confirmed Problem Pulmonary embolism (88650167) Pulmonary embolism (I26.99) Active confirmed Problem Coronary artery disease (98859803) Coronary artery disease (I25.10) Active confirmed Problem Obstructive sleep apnea (69891389) Obstructive sleep apnea (G47.33) Active confirmed Problem Mental disorder caused by drug (964005903) Cigarette nicotine dependence with nicotine-induced disorder (F17.219) Active confirmed Problem Iron deficiency anemia (17423862) Iron deficiency anemia (D50.9) Active confirmed Problem Type II diabetes mellitus well controlled (569935511) Diabetes mellitus type 2, controlled (E11.9) Active confirmed Problem Paraseptal emphysema (64060340) Paraseptal emphysema (J43.8) Active confirmed Problem Screening for malignant neoplasm of lung (690233373) Encounter for screening for lung cancer (Z12.2) Active confirmed Problem Secondary pulmonary hypertension (39046507) Other secondary pulmonary hypertension (I27.29) Active confirmed Problem History of COVID-19 (928709212007503 105) History of COVID-19 (Z86.16) Active confirmed Vital Signs Heart Rate 93 /min 01/30/2025 Temperature 96.8 degrees Fahrenheit 01/30/2025 Respiratory Rate 20 /min 01/30/2025 Blood pressure diastolic 73 mm Hg 01/30/2025 Oximetry 94 % 01/30/2025 Height 69 in 01/30/2025 Blood pressure systolic 145 mm Hg 01/30/2025 Weight 258.4 lbs 01/30/2025 BMI 38.15 kg/m2 01/30/2025 Procedures Procedure Date Ordered Date Performed Result Body Sit e Six minute walk 01/30/2025 02/15/2025 N/A Encounters Encounter Location Date Provider Diagnosis Pulmonary Medicine [address] [address] 08/01/2024 Calvin Gaines Chronic respiratory failure with hypoxia J96.11 ; Paraseptal emphysema J43.8 ; Cigarette nicotine dependence with nicotine-induced disorder F17.219 ; Encounter for screening for malignant neoplasm of respiratory organs Z12.2 ; Pulmonary embolism I26.99 ; Obstructive sleep apnea G47.33 ; Diabetes mellitus type 2, controlled E11.9 ; Encounter for therapeutic drug level monitoring Z51.81 ; detention (current) use of inhaled steroids Z79.51 and Obesity, unspecified E66.9 Pulmonary Medicine [address] [address] 01/30/2025 Calvin Gaines Chronic respiratory failure with hypoxia J96.11 ; Paraseptal emphysema J43.8 ; Cigarette nicotine dependence with nicotine-induced disorder F17.219 ; Pulmonary embolism I26.99 ; Obstructive sleep apnea G47.33 ; Diabetes mellitus type 2, controlled E11.9 ; detention (current) use of inhaled steroids Z79.51 and Obesity, unspecified E66.9 Pulmonary Medicine [address] [address] 10/09/2024 Calvin [facility] Paraseptal emphysema J43.8 Pulmonary Medicine [address] [address] 01/21/2025 [facility] Pulmonary Medicine [address] [address] 02/19/2025 Calvin [facility] Chronic obstructive pulmonary disease with (acute) exacerbation J44.1 Pulmonary Medicine [address] [address] 05/14/2025 [facility] Paraseptal emphysema J43.8 Assessments Encounter Date Diagnosis (ICD Code) Assessment Notes Treatment Notes Treatment Clinical Notes Section Notes 08/01/2024 Chronic respiratory failure with hypoxia (ICD-10 - J96.11) Ousk-vz-dajn encounter performed with the patient to document [...] respiratory failure with hypoxia (ICD-10 - J96.11) Uinp-hk-qquj encounter performed with the patient to document [...] return in 6 months for longitudinal evaluation. Qlzj-fv-ekcy encounter performed with the patient to document [...] to manage diabetes in this situation. 01/30/2025 detention (current) use of inhaled steroids (ICD-10 - [...] loss indicated: Decrease calories, increase activity. 08/01/2024 detention (current) use of inhaled steroids (ICD-10 - Z79.51) Patient was counseled to rinse & gargle with water after inhaled corticosteroid use. 08/01/2024 Obesity, unspecified (ICD-10 - E66.9) Patient's weight is inducing a restrictive pulmonary physiology. Weight loss indicated: Decrease calories, increase activity. 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
--- OUTSIDE RECORDS SUMMARY | 2025-07-17 09:33 | XMS_ITS | Encounter Summary ---
Author Organization [facility] Address [address] [facility] [place] [address] Care Team Providers Care Mental Health Specialist Name Role Phone Brea Jj GENERAL SUPERVISOR Unavailable [phone] Jose M Light MD Primary Care Provider [phone] Brea Jj GENERAL SUPERVISOR Unavailable [phone] Tram Crooks AMORTIZATION SCHEDULE CLERK Unavailable Diana Stephen AMORTIZATION SCHEDULE CLERK Unavailable [phone] Encounter Details Date Type Department Care Team (Late st Contact Info) Description 04/02/2024 Orders Only [facility] [address] [place] [address] Brea Jj NP [address] [place] [address] Social History Tobacco Use Types Packs/Day Years [...] (03/31/2024 8:56 AM EDT) us Brea Jj GENERAL SUPERVISOR IN CLINIC/BEDSIDE ORDERABLES Fi nal Result documented in this encounter Visit Diagnoses Not on filedocumented in this encounter Care Teams Mental Health Specialist Relationship Specialty Start Date End Date Jose M Light MD PCP - General Family Medicine 10/18/23 Brea Jj NP [address] [place] [address] PCP - [facility] 07/31/24 Brea Jj NP Nurse Practitioner Family Medicine 10/18/23 [place] [address] [place] [address] Errand Runner Counseling Services Manager 11/14/24 11/15/24 Diana Stephen LSW [address] [place] [address] Errand Runner Family Medicine 11/15/24 11/26/24 documented as of this encounter
--- OUTSIDE RECORDS SUMMARY | 2025-07-17 09:33 | XMS_ITS | Encounter Summary ---
Author Organization [facility] Address [address] [facility] [place] [address] Care Team Providers Care Driver License Agent Name Role Phone Brea Jj BRONZE CHASER Unavailable [phone] Jose M Light MD Primary Care Provider [phone] Brea Jj BRONZE CHASER Unavailable [phone] Tram Crooks SCULPTURE INSTRUCTOR Unavailable Diana Stephen SCULPTURE INSTRUCTOR Unavailable [phone] Encounter Details Date Type Department Care [...] AM EDT Narrative 02/15/2024 7:11 [place] [address] Respiratory Report Signed Patient: SIS MOORE MR#: [id number] : 1965 Acct:[id number] Age/Sex: 58 / F ADM Date: 02/13/24 Loc: LAB Attending Dr: Calvin Russo D.O. Ordering Physician: Calvin Russo D.O. Date of Service: 02/13/24 Procedure(s): RT pulmonary function test Accession Number(s): [id number] cc: [facility] Test Date: 2024-02-13 Pat Name: SIS MOORE Department: Room: - Gender: Female Customer Orders Clerk: Gerald Caputo RRT : 1965 Requested By: Calvin Russo Order Number: [id number] Reading MD: Calvin Russo Interpretive Statements Pulmonary function testing was completed according to ATS criteria. Findings were considered accurate and reproducible. Both pre- and post-bronchodilator values utilized for spirometry. Spirometry (based on pre-bronchodilator values): -FEV1/FVC: Normal @ 77% -FEV1: Moderately reduced @ 54% -FVC: Severely reduced @ 54% -TDM34-22%: Reduced @ 47% -There is a partial [...] Signed By: 02/15/24 0711 DD/ 0914 TD/TT: Cartridge Feeder: Procedure Note Radiology, Radiologist, MD - 02/15/2024 [place] [address] Respiratory Report Signed Patient: SIS MOORE R#: [id number] : 1965Acct:[id number] Age/Sex: 58 / FADM Date: 02/13/24 Loc: LAB Attending Dr: Calvin Russo D.O. Ordering Physician: Calvin Russo D.O. Date of Service: 02/13/24 Procedure(s): RT pulmonary function test Accession Number(s): [id number] cc: [facility] Test Date: 2024-02-13 Pat Name: SIS MOORE Department: Room: - Gender: Female Customer Orders Clerk: Gerald Caputo RRT : 1965 Requested By: Calvin Russo Order Number: [id number] Reading MD: Calvin Russo Interpretive Statements Pulmonary function testing was completed according to ATS criteria.Findings were considered accurate and reproducible. Both pre- andpost-bronchodilator values utilized for spirometry. Spirometry (based on pre-bronchodilator values): -FEV1/FVC: Normal @ 77% -FEV1: Moderately reduced @ 54% -FVC: Severely reduced @ 54% -XEZ63-23%: Reduced @ 47% -There is a partial [...] Calvin Russo D.O. Signed By:02/15/24 0711 DD/ TD/TT: Cartridge Feeder: us Generic External Data Provider [facility] Final Result documented in this encounter Visit Diagnoses Not on filedocumented in this encounter Care Teams Driver License Agent Relationship Specialty Start Date End Date Jose M Light MD PCP - General Family Medicine 10/18/23 Brea Jj NP [address] [place] [address] PCP - [facility] 07/31/24 Brea Jj NP Nurse Practitioner Family Medicine 10/18/23 Tram Crooks, SCULPTURE INSTRUCTOR [address] [place] [address] Mattress And Boxsprings Supervisor Pulper 11/14/24 11/15/24 Diana Stephen, SCULPTURE INSTRUCTOR [address] [place] [address] Mattress And Boxsprings Supervisor Family Medicine 11/15/24 11/26/24 documented as of this encounter
--- OUTSIDE RECORDS SUMMARY | 2025-07-17 09:33 | XMS_ITS | Patient Health Record ---
Author Organization [facility] Address [address] [place] [address] Support Name Relationship Address Phone ALIYA CONDON Guarantor Unknown [phone] Reason For Referral No Information Social History [...] Problem Status W/U Status Risk Notes Problem [id number] Primary osteoarthritis of left knee (M17.12) Active confirmed Plan Of Treatment No Information Insurance Providers Payer Name Payer Address Payer Phone Subscriber Number Group Number Insured Name Patient Relationship to Insured Coverage Start Date Coverage End Date Medicaid [place] [address] [facility] [place] [phone] [id number] ALIYA CONDON Self - patient is the insured
--- OUTSIDE RECORDS SUMMARY | 2025-07-17 09:33 | XMS_ITS | Encounter Summary ---
Author Organization [facility] Address [address] [facility] [place] [address] Care Team Providers Care Parachute Panel Joiner Name Role Phone Brea Jj PROMOTIONS SPECIALIST Unavailable [phone] Jose M Light MD Primary Care Provider [phone] Brea Jj PROMOTIONS SPECIALIST Unavailable [phone] Tram Crooks ENVELOPE FOLDING MACHINE OPERATOR Unavailable Diana Stephen ENVELOPE FOLDING MACHINE OPERATOR Unavailable [phone] Encounter Details Date Type Department Care Team (Late st Contact Info) Description 12/21/2023 Orders Only [facility] [address] [place] [address] Brea Jj PROMOTIONS SPECIALIST [address] [place] [address] Social History Tobacco Use Types Packs/Day Years [...] on filedocumented in this encounter Care Teams Parachute Panel Joiner Relationship Specialty Start Date End Date Jose M Light MD PCP - General Family Medicine 10/18/23 Brea Jj NP [address] [place] [address] PCP - [facility] 07/31/24 Brea Jj NP Nurse Practitioner Family Medicine 10/18/23 [place] [address] [place] [address] Event Decorator And Designer Sales And Merchandising Associate 11/14/24 11/15/24 Diana Stephen LSW [address] [place] [address] Event Decorator And Designer Family Medicine 11/15/24 11/26/24 documented as of this encounter
--- OUTSIDE RECORDS SUMMARY | 2025-07-17 09:33 | XMS_ITS | Encounter Summary ---
Author Organization [facility] Address [address] [facility] [place] [address] Care Team Providers Care Certified Meeting Professional Name Role Phone Brea Jj RUBBER GOODS INSPECTOR TESTER Unavailable [phone] Jose M Light MD Primary Care Provider [phone] Brea Jj RUBBER GOODS INSPECTOR TESTER Unavailable [phone] Tram Crooks WAX ROOM SUPERVISOR Unavailable Diana Stephen WAX ROOM SUPERVISOR Unavailable [phone] Encounter Details Date Type Department Care Team (Late st Contact Info) Description 01/16/2024 Orders Only [facility] [address] [place] [address] Brea Jj RUBBER GOODS INSPECTOR TESTER [address] [place] [address] Social History Tobacco Use Types Packs/Day Years [...] Venous blood specimen / Unknown Brea Jj RUBBER GOODS INSPECTOR TESTER LAB BLOOD ORDERABLES Final Resu lt * - Miscellaneous Test (01/16/2024 2:11 PM EDT) us Brea Jj RUBBER GOODS INSPECTOR TESTER LAB BLOOD ORDERABLES Final Resu lt documented in this encounter Visit Diagnoses Not on filedocumented in this encounter Care Teams Certified Meeting Professional Relationship Specialty Start Date End Date Jose M Light MD PCP - General Family Medicine 10/18/23 Brea Jj NP [address] [place] [address] PCP - [facility] 07/31/24 Brea Jj NP Nurse Practitioner Family Medicine 10/18/23 Tram Crooks, SKY [address] [place] [address] Jinrikisha Driver Medical Interpreter 11/14/24 11/15/24 Diana Stephen SKY [address] [place] [address] Jinrikisha Driver Family Medicine 11/15/24 11/26/24 documented as of this encounter
--- OUTSIDE RECORDS SUMMARY | 2025-07-17 09:33 | XMS_ITS | Encounter Summary ---
Author Organization [facility] Address [address] [facility] [place] [place] [address] Care Team Providers Care Vegetable Thinner Name Role Phone Brea Jj LEGAL ADMINISTRATIVE SECRETARY Unavailable [phone] Jose M Light MD Primary Care Provider [phone] Brea Jj LEGAL ADMINISTRATIVE SECRETARY Unavailable [phone] Tram Crooks BOX ICER Unavailable Diana Stephen BOX ICER Unavailable [phone] Encounter Details Date Type Department Care Team (Late st Contact Info) Description 01/17/2024 Orders Only [facility] [address] [place] [address] Brea Jj LEGAL ADMINISTRATIVE SECRETARY [address] [place] [address] Social History Tobacco Use Types Packs/Day Years [...] (01/17/2024 10:42 AM EDT) us Brea Jj LEGAL ADMINISTRATIVE SECRETARY LAB CHG PERFORMABLES Final Resu lt documented in this encounter Visit Diagnoses Not on filedocumented in this encounter Care Teams Vegetable Thinner Relationship Specialty Start Date End Date Jose M Light MD PCP - General Family Medicine 10/18/23 Brea Jj NP [address] [place] [address] PCP - [facility] 07/31/24 Brea Jj NP Nurse Practitioner Family Medicine 10/18/23 [place] [address] [place] [address] Conveyor Technician Laborer Electroplating 11/14/24 11/15/24 Diana Stephen LSW [address] [place] [address] Conveyor Technician Family Medicine 11/15/24 11/26/24 documented as of this encounter
--- OUTSIDE RECORDS SUMMARY | 2025-07-17 09:34 | XMS_ITS | Encounter Summary ---
Author Organization [facility] Address [address] [facility] [place] [address] Care Team Providers Care Bull Float Finisher Name Role Phone Brea Jj CIDER MAKER Unavailable [phone] Jose M Light MD Primary Care Provider [phone] Brea Jj CIDER MAKER Unavailable [phone] Tram Crooks LEGAL FINANCIAL SPECIALIST Unavailable Diana Stephen LEGAL FINANCIAL SPECIALIST Unavailable [phone] Encounter Details Date Type Department Care [...] EDT) Anatomical Region Laterality Modality Other 05/29/2024 4:0 2 PM EDT Narrative 05/29/2024 4:04 [place] [address] CT Scan Report Signed Patient: SIS MOORE MR#: [id number] : 1965 Acct:[id number] Age/Sex: 58 / F ADM Date: 05/29/24 Loc: CT Attending Dr: Corrina Gaines D.O. Ordering Physician: Corrina Gaines D.O. Date of Service: 05/29/24 Procedure(s): CT lung screening low-dose Accession Number(s): [id number] cc: Brea Jj NP The [address] [address] Patient Name: SIS MOORE MRN: [id number] date: 1965 Sex: F Assigned Patient Location: CT Current Patient Location: CT Accession/Order Number: [id number] Exam Date: 05/29/2024 09:29 Report Date: 05/29/2024 [...] Dictated By: Leana Davidson M.D. Signed By: 05/29/241603 DD/ 01 TD/TT: Visual Effects Editor: Procedure Note Radiology, Radiologist, MD - 05/29/2024 [place] [address] CT Scan Report Signed Patient: SIS MOORE JMR#: [id number] : 1965Acct:[id number] Age/Sex: 58 / FADM Date: 05/29/24 Loc: CT Attending Dr: Corrina Gaines D.O. Ordering Physician: Corrina Gaines D.O. Date of Service: 05/29/24 Procedure(s): CT lung screening low-dose Accession Number(s): [id number] cc: Brea Jj NP The [place] [address] Patient Name: SIS MOORE MRN: [id number] date: 1965 Sex: F Assigned Patient Location: CT Current Patient Location: CT Accession/Order Number: [id number] Exam Date: 05/29/2024 09:29 Report Date: 05/29/2024 [...] M.D. Signed By:05/29/24 1604 DD/ 1602 TD/TT: Visual Effects Editor: Generic External Data Provider [facility] Final Result documented in this encounter Visit Diagnoses Not on filedocumented in this encounter Care Teams Bull Float Finisher Relationship Specialty Start Date End Date Jose M Light MD PCP - General Family Medicine 10/18/23 Brea Jj NP [address] [place] [address] PCP - [facility] 07/31/24 Brea Jj NP Nurse Practitioner Family Medicine 10/18/23 Tram Crooks, SKY [address] [place] [address] Machinist Apprentice Primer Inserting Machine Operator 11/14/24 11/15/24 Diana Stephen, LEGAL FINANCIAL SPECIALIST [address] [place] [address] Machinist Apprentice Family Medicine 11/15/24 11/26/24 documented as of this encounter
--- OUTSIDE RECORDS SUMMARY | 2025-07-17 09:34 | XMS_ITS | Clinical Summary ---
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 Active OneTouch Ultra test strip USE ONCE DAILY DIRECTED 03/17/20 23 Active Bevespi Aerosphere 9-4.8 MCG/ACT aerosol Inhale 2 puffs in the morning and 2 puffs before bedtime. Active ipratropium-albute rol (Duo-Neb) 0.5-2.5 mg/3 mL nebulizer solution INHALE 3ML FOUR TIMES A DAY Active theophylline ER (Franki-Dur) 300 MG 12 hr tablet TAKE 1 12 TABLETS BY MOUTH EVERY 12 HOURS 06/09/20 23 Active fluocinonide (Lidex) 0.05 % creamIndications:O ther atopic dermatitis Apply thin layer (1 g) to lower legs, up to twice a day when flared, do not use one the face, groin, or underarms, 30 day supply 80 g 11 12/10/19 25 Active predniSONE (Deltasone) 20 MG tablet TAKE THREE TABLETS BY MOUTH DAILY FOR 3 DAYS,THEN 2 TABS FOR 3 DAYS, THEN 1 TAB FOR 3 DAYS. 02/20/20 Active guaiFENesin-codein e (Robitussin-AC) 100-10 MG/5ML syrup TAKE 2 TEASPOONSFUL (10ML) BY MOUTH EVERY 6 HOURS NEEDED 02/23/20 Active guaiFENesin (Mucinex) 600 MG 12 hr tablet TAKE ONE TABLET BY MOUTH TWICE A DAY NEEDED FOR CONGESTION 02/23/20 Active FeroSul 325 (65 Fe) MG tablet Take 325 mg by mouth in the morning. Take with meals. 02/01/20 Active dicyclomine (Bentyl) 20 MG tablet See Instructions, when needed, Refills(s) 0 01/12/20 Active celecoxib (CeleBREX) 200 MG capsule Take 200 mg by mouth Daily Active benzonatate (Tessalon) 100 MG capsule Take 100 mg by mouth 3 (three) times a day as needed for cough 02/23/20 25 Active clonazePAM (KlonoPIN) 0.5 MG tabletIndications: Anxiety and depression,Restles s leg syndrome,Other insomnia TAKE 1 TABLET (0.5 MG) BY MOUTH AT BEDTIME 30 tablet 2 05/10/20 25 Active Multiple Vitamin (Multivitamin) tablet Take 1 tablet by mouth Daily 05/02/20 25 Active metoprolol succinate XL (Toprol-XL) 25 MG 24 hr tablet Take 25 mg by mouth Daily Active doxepin (SINEquan) 10 MG capsule Take 10 mg by mouth at bedtime Active Calcium Carb-Cholecalcifer ol 600-5 MG-MCG tablet Take 1 tablet by mouth in the morning and 1 tablet before bedtime. 05/02/20 25 Active atorvastatin (Lipitor) 40 MG tabletIndications: Mixed hyperlipidemia Take 1 tablet (40 mg) by mouth at bedtime 30 tablet 05/28/20 25 Active busPIRone (Buspar) 15 MG tabletIndications: Anxiety and depression Take 1 tablet (15 mg) by mouth in the morning and 1 tablet (15 mg) before bedtime. 60 tablet 05/28/20 25 Active DULoxetine (Cymbalta) [address] capsuleIndications :Anxiety and depression Take 1 capsule (60 mg) by mouth Daily 30 capsule 05/28/20 25 Active furosemide (Lasix) 20 MG tabletIndications: Edema of both lower extremities Take 1 tablet (20 mg) by mouth Daily 30 tablet 05/28/20 25 Active gabapentin (Neurontin) 300 MG capsuleIndications :Restless leg syndrome Take 1 capsule (300 mg) by mouth Daily 30 capsule 05/28/20 25 Active lisinopril-hydroCH LOROthiazide 20-25 MG tabletIndications: Primary hypertension Take 1 tablet by mouth Daily 30 tablet 05/28/20 25 Active pantoprazole (ProtoNix) 40 MG EC tabletIndications: Gastroesophageal reflux disease without esophagitis Take 1 tablet (40 mg) by mouth in the morning. Take before meals. Do not crush, chew, or split. 30 tablet 05/28/20 25 Active pioglitazone (Actos) 15 MG tabletIndications: Type 2 diabetes mellitus without complication, without long-term current use of insulin ([facility]) Take 1 tablet (15 mg) by mouth Daily 30 tablet 05/28/20 25 Active pramipexole (Mirapex) 0.5 MG tabletIndications: Restless leg syndrome Take 1 tablet (0.5 mg) by mouth at bedtime 30 tablet 05/28/20 25 Active lamoTRIgine (LaMICtal) 25 MG tabletIndications: Anxiety and depression Take 2 tablets (50 mg) by mouth at bedtime 60 tablet 05/28/20 25 Active aspirin (Aspirin Low Dose) 81 MG EC tabletIndications: Essential (primary) hypertension,Type 2 diabetes mellitus without complication, without long-term current use of insulin ([facility]) Take 1 tablet (81 mg) by mouth Daily 30 tablet 5 05/28/20 25 025 potassium chloride CR (Klor-Con) 10 MEQ ER tabletIndications: Edema of both lower extremities Take 1 tablet (10 mEq) by mouth Daily 30 tablet 05/28/20 25 025 magnesium oxide (Mag-Ox) 400 MG tabletIndications: Hypomagnesemia Take 1 tablet (400 mg) by mouth in the morning and 1 tablet (400 mg) before bedtime. 60 tablet 1 06/05/20 25 025 Active Problems Problem Noted Date Diagnosed Date Hypomagnesemia 05/30/2025 Assessment & Plan (05/30/2025 10:53 AM EDT): Start supplement Recheck in 10 days fluids MARLIN (acute kidney injury) 05/30/2025 Vomiting and diarrhea 05/28/2025 Assessment & Plan [...] (12/26/2024 6:39 AM EST): Continues with pulmonary Sam Cont current inhalers Occult blood positive stool 12/25/2024 Assessment & Plan (12/26/2024 6:43 AM EST): Neg cultures +stool for OB Referred to GI Nausea & vomiting 12/03/2024 Assessment & Plan (12/03/2024 9:41 AM EST): Has zofran for prn Check labs Irritable bowel syndrome with diarrhea Assessment & Plan (12/26/2024 10:25 AM EST): Stool sample results reviewed I have referred her to GI in [facility] trial Xifaxin for for IBS-D Has failed: immmodium, pepto Sxs could also be gallbladder related as well #3 samples: lot: [id number] exp 04/26 Assessment & Plan (12/03/2024 9:42 [...] therapy Continue inhalers Follows with Dr Gaines Assessment & Plan (12/03/2024 6:09 AM EST): Has oxygen therapy Continue inhalers Follows with Dr Gaines Assessment & Plan (05/23/2024 10:14 AM EDT): [...] would like counseling Refer to [facility] Assessment & Plan (12/03/2024 9:21 AM [...] as of last week, no living in [place], much less stress Essential (primary) hypertension 10/12/2023 [...] of the risks of continued smoking: stroke, WI, all forms of cancer, lung disease, and [...] Assessment & Plan: Stable, f/u with Dr Gaines Edema of both lower extremities 12/24/2022 Overview [...] Encounters Date Type Department Care Team Description 06/24/2025 Clinisync Result Encounter [facility] External Department Unsolicited Provider, Generic External Data 06/05/2025 Refill [facility] [address] [place] [address] Brea Jj NP Hypomagnesemia 06/05/2025 Clinisync Result Encounter [facility] External Department Unsolicited Brea Jj NP 06/05/2025 Telephone [facility] [address] [place] [phone] Brea Jj NP 05/30/2025 Refill [facility] [address] [place] [phone] Brea Jj NP Hypomagnesemia (Primary Dx); MARLIN (acute kidney injury) 05/29/2025 Clinisync Result Encounter [facility] External Department Unsolicited Brea Jj, TOBIAS 05/29/2025 Telephone [facility] [address] [place] [phone] Brea Jj NP 05/29/2025 Abstract [facility] [address] [place] [phone] Brea Jj NP 05/28/2025 9:00 AM EDT Office Visit [facility] [address] [place] [phone] Brea Jj NP Vomiting and diarrhea (Primary Dx); Restless leg syndrome; ROLANDO (obstructive sleep apnea); Essential (primary) hypertension ; Gastroesophageal reflux disease without esophagitis; Edema of both lower extremities; Type 2 diabetes mellitus without complication, without long-term current use of insulin ([facility]); Class 2 severe obesity due to excess calories with serious comorbidity and body mass index (BMI) of 37.0 to 37.9 in adult ([facility]); Mixed hyperlipidemia ; Anxiety and depression ; Primary hypertension 05/28/2025 External Result Encounter [facility] External Department Unsolicited Brea Jj NP 05/28/2025 Orders Only [facility] [address] [place] [phone] Sheldon Mckee MD 05/28/2025 Clinisync Result Encounter [facility] External Department Unsolicited Brea Jj NP 05/28/2025 Bamboo flowsheet [facility] [address] [place] [address] Brea Jj NP 05/10/2025 Refill [facility] [address] [place] [address] Brea Jj NP Anxiety and depression ; Restless leg syndrome; Other insomnia 04/30/2025 Clinisync Result Encounter [facility] External Department Unsolicited Provider, Generic External Data 04/17/2025 Clinisync Result Encounter [facility] External Department Unsolicited Brea Jj NP from Last 3 Months [...] 12/26/2024 9:46 AM EST Plan of Treatment Health Maintenance Due Date [...] Diagnosis Comments CT LUNG SCREENING LOW DOSE 06/24/2025 11:52 AM EDT ALL MAGNESIUM Routine 06/05/2025 10:56 AM EDT ALL BASIC METABOLIC PANEL Routine 06/05/2025 10:56 AM EDT ALL MAGNESIUM Routine 05/29/2025 4:30 PM EDT ALL BASIC METABOLIC PANEL Routine 05/29/2025 4:30 PM EDT ALL CBC WITH AUTO DIFF Routine 05/29/2025 4:[address] ABDOMEN PELVIS WO IV CONTRAST Routine 05/28/2025 4:45 PM EDT ALL THYROID STIM HORMONE Routine 05/28/2025 10:09 AM EDT ALL LIPID PROFILE (FASTING) Routine 05/28/2025 10:09 AM EDT [facility] CMP (CMP) (FOR REMOTE [facility] USE) Routine 05/28/2025 10:09 AM EDT ALL CBC WITH AUTO DIFF Routine 05/28/2025 10:09 AM EDT CULTURE, URINE, ROUTINE Routine 05/28/2025 10:02 AM EDT URINE CULTURE - [facility] Routine 05/28/2025 10:01 AM EDT TBH MICROALB [...] Relevant to Health Maintenance Results * CT LUNG SCREENING LOW DOSE (06/24/2025 11:52 AM EDT) Anatomical Region Laterality Modality Other 06/24/2025 11:5 2 AM EDT Narrative 06/24/2025 11:[place] [address] CT Scan Report Signed Patient: SIS MOORE MR#: [id number] : 1965 Acct:[id number] Age/Sex: 59 / F ADM Date: 06/24/25 Loc: CT Attending Dr: Corrina Gaines D.O. Ordering Physician: Corrina Gaines D.O. Date of Service: 06/24/25 Procedure(s): CT lung screening low-dose Accession Number(s): [id number] cc: Brea Jj NP [address] [address] Patient Name: SIS MOORE MRN: [id number] date: 1965 Sex: F Assigned Patient Location: CT Current Patient Location: CT Accession/Order Number: [id number] Exam Date: 06/24/2025 10:08 Report Date: 06/24/2025 [...] Rasmussen M.D. 06/24/2025 11:52 AM Dictation Location: [place] [address] Electronically authenticated by: [id number] Y Date: 06/24/2025 11:52 Dictated By: Krystyna Rasmussen M.D. Signed By: 06/24/25 1155 DD/ 1152 TD/TT: Odd Bundle Worker: Procedure Note Radiology, Radiologist, MD - 06/24/2025 [place] [address] CT Scan Report Signed Patient: SIS MOORE R#: [id number] : 1965Acct:[id number] Age/Sex: 59 / FADM Date: 06/24/25 Loc: CT Attending Dr: Corrina Gaines D.O. Ordering Physician: Corrina Gaines D.O. Date of Service: 06/24/25 Procedure(s): CT lung screening low-dose Accession Number(s): [id number] cc: Brea Jj NP The [address] [address] Patient Name: SIS MOORE MRN: [id number] date: 1965 Sex: F Assigned Patient Location: CT Current Patient Location: CT Accession/Order Number: [id number] Exam Date: 06/24/2025 10:08 Report Date: 06/24/2025 11:52 At the request of: CORRINA GAINES DO Procedure: CT lung screening low-dose LOW-DOSE SCREENING CHEST CT WITHOUT CONTRAST COMPARISON: 05/29/2024 CLINICAL DATA: Current smoker for over 40 years Spiral axial unenhanced low-dose images were obtained through the chest. Images were reviewed using both narrow and wide window settings. This CTexam was performed using one or more following dose reduction techniques:Automated exposure control, adjustment of the mA and/or kV according to patientsize, or use of iterative reconstruction technique. The heart is top normal in size. No pericardial effusion is seen. Thereis coronary artery disease. No aortic aneurysm is identified.Atherosclerotic plaque is seen at the aortic arch and proximal great vessels. There are afew benign mediastinal lymph nodes. Mild degenerative changes are visualizedat the spine. There is minor obstructive lung disease. There is new atelectasis withinthe right lower lobe adjacent to the major fissure. Other minimal scarring or atelectasis is also seen. There is no pleural effusion or pneumothorax.No developing pulmonary nodularity is identified. Limited cuts through the upper abdomen show no contributory findings. CT/CT lung screening low-dose IMPRESSION: MILD DEVELOPING RIGHT LOWER LOBE ATELECTASIS. NO PULMONARY NODULARITY OR OTHER ACUTE FINDINGS. Lung RADS category 1 - negative Twelve-month low-dose CT follow-up suggested Impression dictated by: Krystyna Rasmussen M.D. 06/24/2025 11:52 AM Dictation Location: [place] [address] Electronically authenticated by: [id number] Y Date: 1:52 Dictated By: Krystyna Rasmussen M.D. Signed By:06/24/25 1155 DD/ 1152 TD/TT: Odd Bundle Worker: us Generic External Data Provider CLINISYNC IMAGING Final Result * (ABNORMAL) ALL MAGNESIUM (06/05/2025 10:56 AM EDT) Only the most recent of2 resultswithin the time period is included. MAGNESIUM 1.2(L) 1.8 - 2.4 mg/dL TBH 06/05/2025 10:5 6 AM EDT 06/05/2025 10:58 AM EDT Narrative CLINISYNC - 06/05/2025 11:38 AM EDT Brea Jj NP CLINISYNC Final Result Performing Organization Address [facility] de Phone Number CLINISYNC TB * (ABNORMAL) ALL BASIC METABOLIC PANEL (06/05/2025 10:56 AM EDT) Only the most recent of2 resultswithin the time period is included. SODIUM 141 136 - 145 mmol/L TBH POTASSIUM 4.0 3.5 - 5.1 mmol/L TBH CHLORIDE 101 98 - 107 mmol/L TBH CARBON DIOXIDE 32.0 21.0 - 32.0 mmol/L TBH ANION GAP 12.0 TBH GLUCOSE 127(H) 74 - 106 mg/dL TBH BLOOD UREA NITROGEN 16.0 7.0 - 18.0 mg/dL TBH CREATININE 0.87 0.55 - 1.02 mg/dL TBH TBH EGFR-AF STATELESS >60 >=60 mL/min/1.7 3m 2 TBH TBH EGFR-NON AF STATELESS >60 >=60 mL/min/1.7 3m 2 TBH BUN CREATININE RATIO 18.4 TBH CALCIUM 10.1 8.5 - 10.1 mg/dL TBH 06/05/2025 10:5 6 AM EDT 06/05/2025 10:58 AM EDT Narrative CLINISYNC - 06/05/2025 11:38 AM EDT Brea Jj NP CLINISYNC Final Result Performing Organization Address [facility] de Phone Number CLINISYNC TB * (ABNORMAL) ALL CBC WITH AUTO DIFF (05/29/2025 4:30 PM EDT) Only the most recent of2 resultswithin the time period is included. TBH WBC 9.4 4.0 - 11.0 10 3/uL TBH TBH RBC 4.44 4.20 - 5.40 10 6/uL TBH TBH HGB 13.4 12.0 - 16.0 g/dL TBH TBH HCT 39.9 36.0 - 48.0 % TBH TBH MCV 89.9 81.0 - 99.0 fL TBH TBH MCH 30.2 26.7 - 34.0 pg TBH TBH MCHC 33.6 29.9 - 35.2 g/dL TBH TBH RDW 15.5(H) 11.0 - 15.0 % TBH TBH PLT 155 150 - 450 10 3/uL TBH TBH MPV 11.8 9.5 - 13.5 fL TBH NEUTROPHILS PERCENT AUTO 75.8(H) 43.0 - 75.0 % TBH LYMPHOCYTES PERCENT AUTO 12.8(L) 20.5 - 60.0 % TBH MONOCYTES PERCENT AUTO 10.4 1.7 - 12.0 % TBH TBH EO % 0.7(L) 0.9 - 7.0 % TBH BASOPHILS PERCENT AUTO 0.1(L) 0.2 - 2.0 % TBH IMMATURE GRANULOCYTES PCT AUTO 0.2 0.0 - 0.5 % TBH NEUTROPHILS ABSOLUTE AUTO 7.1(H) 1.4 - 6.5 10 3/uL TBH LYMPHOCYTES ABSOLUTE AUTO 1.2 1.2 - 3.8 10 3/uL TBH MONOCYTES ABSOLUTE AUTO 1.0(H) 0.3 - 0.8 10 3/uL TBH TBH EO # 0.1 0.0 - 0.7 10 3/uL TBH BASOPHILS ABSOLUTE AUTO 0.0 0.0 - 0.1 10 3/uL TBH IMMATURE GRANULOCYTES ABS AUTO 0.02 0.00 - 0.03 10 3/uL TBH 05/29/2025 4:30 PM EDT 05/29/2025 4:31 PM EDT Narrative CLINISYNC - 05/29/2025 4:39 PM EDT us Brea Jj NP CLINISYNC Final Result CLINISYNC TB * CT abdomen pelvis wo IV contrast (05/28/2025 4:45 PM EDT) Anatomical Region Laterality Modality Body, Pelvis, Abdomen Computed T omography us Sheldon Mckee MD IMG CT PROCEDURES Final Resul t * (ABNORMAL) [facility] CMP (CMP) (FOR REMOTE [facility] USE) (05/28/2025 10:09 AM EDT) SODIUM [...] 0.55 - 1.02 mg/dL TBH TBH EGFR-AF STATELESS 14(L) >=60 mL/min/1. 73m 2 TBH TBH EGFR-NON AF STATELESS 12(L) >=60 mL/min/1. 73m 2 TBH BUN [...] Brea Jj NP CLINISYNC Final Result CLINIS[facility]NC [facility] * ALL THYROID STIM HORMONE (05/28/2025 10:09 AM EDT) THYROID STIMULATING HORMONE 0.482 0.358 - 3.740 uIU/mL TBH 05/28/2025 10:0 9 AM EDT 05/28/2025 10:10 AM EDT Narrative CLINISYNC - 05/28/2025 11:04 AM EDT Brea Jj NP CLINISYNC Final Result [facility] * (ABNORMAL) ALL LIPID PROFILE (FASTING) (05/28/2025 10:09 AM EDT) Pathologist [facility] TRIGLYCERIDES 119 <=150 mg/dL TBH CHOLESTEROL 133 [...] EDT Brea Jj NP [facility]NC Final Result [facility] * Urine culture (05/28/2025 10:02 AM EDT) Pathologist [facility] NOTE <9,000 colonies/ml mixed bacterial skin contaminants 2 Days 05/30/2025 8:58 AM EDT [facility] Urine Urine specimen obtained by clean catch procedure / Unknown 05/28/2025 10:02 AM EDT 05/28/2025 3:01 PM EDT Comment:Clean-Voided Midstre am us Brea Jj NP LAB MICROBIOLOGY - GENERAL [facility] Final Result Performing Organization Address [facility] Co de Phone Number [facility] [address] [place] [address], [facility] [address] [place] [address] * URINE CULTURE - [facility] (05/28/2025 10:01 AM EDT) Pathologist [facility] URINE CULTURE - [place] Urine Culture - [facility] <9,000 colonies/ml mixed [facility] URINE CULTURE - [facility] bacterial skin contaminants [facility] URINE CULTURE - [facility] 2 Days TB URINE CULTURE - [facility] URINE CULTURE - [facility] Testing performed at [facility] URINE CULTURE - [facility] [address] [place] [address] TB 05/28/2025 10:0 1 AM EDT 05/28/2025 10:10 AM EDT Narrative CLINISYNC - 05/30/2025 10:12 AM EDT us Brea Jj NP LAB BLOOD ORDERABLES Final Resu lt CLINISYNC TBH * (ABNORMAL) TBH UA (CLEAN/CATCH) MICROSCOPIC IF [...] Narrative CLINISYNC - 05/28/2025 10:17 AM EDT Brea Jj WELFARE INVESTIGATOR CLINISYNC Final Result [facility] * TBH MICROALB CREAT RATIO RANDOM (05/28/2025 10:01 AM EDT) MICROALBUMIN URINE RANDOM <1.3 <=30.0 mg/dL TBH CREATININE URINE RANDOM 45.39 20.00 - 300.00 mg/dL TBH 05/28/2025 10:0 1 AM EDT 05/28/2025 10:10 AM EDT Narrative CLINISYNC - 05/28/2025 10:26 AM EDT Brea Jj NP CLINISYNC Final Result Performing Organization Address [facility] Co de Phone Number [facility] * (ABNORMAL) POCT glycosylated hemoglobin (Hb A1C) docked device (05/28/2025 9:15 AM EDT) Hemoglobin A1C 6.3 Blood Venous blood specimen / Unknown 05/28/2025 9:15 AM EDT Brea Jj NP POINT OF CARE TEST ENTER/EDIT O RDERABLES Final Result * CA ECHO DOPPLER COMPLETE (04/30/2025 2:12 PM EDT) Anatomical Region Laterality Modality Other 04/30/2025 2:12 PM EDT Narrative 04/30/2025 2:13 PM EDT The [address] [address] Cardiology Report Signed Patient: SIS MOORE MR#: [id number] : 1965 Acct:[id number] Age/Sex: 59 / F ADM Date: 04/30/25 Loc: CARD Attending Dr: Marlene Gaviria M.D. Ordering Physician: Marlene Gaviria M.D. Date of Service: 04/30/25 Procedure(s): CA echo doppler complete Accession Number(s): [id number] cc: Brea Jj NP; Marlene Gaviria M.D. Patient Name: SIS MOORE MR#: [id number] : 1965 Exam Date: 04/30/2025 Ordering Doctor: [...] Signed By: 04/30/25 1413 DD/ 141 TD/TT: Odd Bundle Worker: Procedure Note Radiology, Radiologist, MD - 04/30/2025 [place] [address] Cardiology Report Signed Patient: SIS MOORE JMR#: [id number] : 1965Acct:[id number] Age/Sex: 59 / FADM Date: 04/30/25 Loc: CARD Attending Dr: Marlene Gaviria M.D. Ordering Physician: Marlene Gaviria M.D. Date of Service: 04/30/25 Procedure(s): CA echo doppler complete Accession Number(s): [id number] cc: Brea Jj NP; Marlene Gaviria M.D. Patient Name: SIS MOORE MR#: [id number] : 1965 Exam Date: 04/30/2025 Ordering Doctor: [...] M.D. Signed By:04/30/25 1413 DD/ 1412 TD/TT: Odd Bundle Worker: Generic External Data Provider CLIN[facility]NC IMAGING Final Result * MM TOMOSYNTHESIS SCREENING BI (04/17/2025 4:38 PM EDT) Anatomical Region Laterality Modality Other 04/17/2025 4:38 PM EDT Narrative 04/17/2025 4:39 PM EDT The [address] [address] Mammography Report Signed Patient: SIS MOORE MR#: [id number] : 1965 Acct:[id number] Age/Sex: 59 / F ADM Date: 04/17/25 Loc: MAMMO Attending Dr: Brea Jj NP Ordering Physician: Brea Jj NP Results: Date of Service: 04/17/25 Follow Up: Procedure(s): MM tomosynthesis screening BI Accession Number(s): [id number] cc: Brea Jj NP Patient Name: SIS MOORE MR#: [id number] : 1965 Exam Date: 04/17/2025 Ordering Doctor: ENRIQUE JJ ELASTIC YARN TWISTER RADIOLOGY REPORT PROCEDURE: MM TOMOSYNTHESIS SCREENING BI [...] Treatments None Family Cancers None LOCATION: The [facility] BREAST COMPOSITION: The breasts are almost [...] Signed By: 04/17/25 1639 DD/ 1638 TD/TT: Odd Bundle Worker: Procedure Note Radiology, Radiologist, MD - 04/17/2025 [place] [address] Mammography Report Signed Patient: SIS MOORE JMR#: [id number] : 1965Acct:[id number] Age/Sex: 59 / FADM Date: 04/17/25 Loc: MAMMO Attending Dr: Brea Jj NP Ordering Physician: Brea Jj NPResults: Date of Service: 04/17/25Follow Up: Procedure(s): MM tomosynthesis screening BI Accession Number(s): [id number] cc: Brea Jj NP Patient Name: SIS MOORE MR#: [id number] : 1965 Exam Date: 04/17/2025 Ordering Doctor: ENRIQUE JJ ELASTIC YARN TWISTER RADIOLOGY REPORT PROCEDURE: MM TOMOSYNTHESIS SCREENING BI [...] Treatments None Family Cancers None LOCATION: The [facility] BREAST COMPOSITION: The breasts are almost [...] M.D. Signed By:04/17/25 1639 DD/ 1638 TD/TT: Odd Bundle Worker: Brea Jj NP CLIN[facility]YNC IMAGING Final Result [...] components cannot be reported in this patient. STEAMER TENDER [facility] Comment: PCJ, SCT(ASCP) CT screening location: [employer] [place], [address] [place] [address]. (ALWAYS MESSAGE) [facility] Comment: EXPLANATORY NOTE: The [...] Not Detected Not Detected [facility] Comment: Methodology: Patrol Conductor-Mediated Amplification This assay detects E6/E7 viral messenger RNA (mRNA) from 14 high-risk HPV types (16,18,31,33,35,39,45,51,52,56,58,59,66,68). Cervical sources are required for HPV testing. If a vaginal source from a patient who has had a total hysterectomy with removal of cervix was submitted, please contact the testing laboratory for alternative testing options. For additional information, please refer to http://education.Sport Ngin.Blurb/faq/IAX712g3 (This link if provided for information/ educational purposes only.) Other 06/23/2023 10:2 8 AM EDT 06/24/2023 4:13 AM EDT Narrative Resulting Agency Comment Performing Organization Information Site ID: [id number] Name: [employer] [facility] Address: [address] [place] [address], [address] [place] [id number] Director: Zaki Prasad MD Yessica Kline NP LAB BLOOD ORDERABLES Nataliya sorensen Result [facility] from Last 3 Months or Most Recently Relevant to Health Maintenance Insurance [employer] Care Teams 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
[2025-07-17 10:19] LABS: Anion Gap 7.1; Blood Urea Nitrogen 14.0 mg/dL (7.0-18.0); Calcium 10.1 mg/dL (8.5-10.1); Carbon Dioxide 38.8 mmol/L (21.0-32.0); Chloride 98 mmol/L (98-107); Estimated GFR (African America >60 (>=60 mL/min/1.73m^2); Estimated GFR (Non-African Ame >60 (>=60 mL/min/1.73m^2); Glucose 135 mg/dL (74-106); Magnesium 1.6 mg/dL (1.8-2.4); Potassium 3.9 mmol/L (3.5-5.1); Sodium 140 mmol/L (136-145)
== END 2025-07-17 09:30 | disposition home or self-care (01) ==
LOC: LAB 09:30
PROVIDERS: PCP Nurse Practitioner; Visit Provider Nurse Practitioner
DX: N17.9 Acute kidney failure, unspecified (principal)
CPT/HCPCS: 36415; 80048; 83735

== ENCOUNTER 2025-10-29 12:47 | Outpatient (OUT) | payer OTHER, SELFPAY ==
--- OUTSIDE RECORDS SUMMARY | 2025-07-31 03:30 | XMS_ITS ---
Author Organization [facility] in [place] Address [address] [place] [address] Care Team Providers Care Drop Forger Helper Name Role Phone Brea Jj CNP Primary Care Provider Unavail Calvin Pettit Unavailable [phone] REASON FOR VISIT 6m F/U COPD, O2 Encounters Encounter Location Date Provider Diagnosis [facility] [place] [address] [place] [address] 07/31/2025 Calvin Russo Plan Of Treatment No Information Progress Notes * Sis MOOREDOB: [birth year] (59 yo F)Acc No.[id number]:07/31/2025 UNLOCKED PROGRESS NOTE Follow Up Patient: Pam STONESis Sarmiento :?KATTY KelleyOB:1965???Age:59 Y ???Sex:FemaleDate:07/31/2025Phone:[phone]:[address] [place] [address] [address] [place], [id number]:Brea Jj CNP Subjective: * Chief Complaints: * 1 . 6m F/U COPD, O2. * Medical History: Objective: * Vitals: Assessment: Plan: * Treatment: * * Electronic signature of Calvin Russo DO on 10/29/2025 at 12:53 PM ESTSign off status: PendingVisit Status:?CANC (Cancelled) * Provider: Ruthann Russo DO Date: 1 Generated for Printing/Faxing/eTransmitting on:?10/29/2025 12:53 PM EST
--- OUTSIDE RECORDS SUMMARY | 2025-10-29 12:52 | XMS_ITS | Clinical Summary ---
Author Organization [facility] Address [address], [address] [place] [address] Care Team Providers Care Tool Marker Name Role Phone Brea Jj APRN, NP Primary Care Provide r Allergies No known active allergies Medications MedicationSigDispense QuantityRefillsLast FilledStart DateEnd DateStatus ASPIRIN LOW DOSE 81 MG EC tablet Take 1 tablet by mouth dailyActive atorvastatin (LIPITOR) 40 MG tablet Take 1 tablet by mouth dailyActive busPIRone (BUSPAR) 15 MG tablet Take 15 mg by mouth 3 times dailyActive celecoxib (CELEBREX) 200 MG capsule Take 1 capsule by mouth dailyActive calcium carb-cholecalciferol 600-5 MG-MCG TABS tablet Take 1 tablet by mouth 2 times dailyActive clonazePAM (KLONOPIN) 0.5 MG tablet Take 1 tablet by mouth nightly as needed for Anxiety.Active DULoxetine (CYMBALTA) 60 MG extended release capsule Take 1 capsule by mouth dailyActive ferrous sulfate (IRON 325) 325 (65 Fe) MG tablet Take 1 tablet by mouth daily (with breakfast)5Active gabapentin (NEURONTIN) 300 MG capsule Take 1 capsule by mouth 3 times daily.Active furosemide (LASIX) 20 MG tablet Take 1 tablet by mouth dailyActive lamoTRIgine (LAMICTAL) 25 MG tablet Take 1 tablet by mouth dailyActive lisinopril-hydroCHLOROthiazide (PRINZIDE;ZESTORETIC) 20-25 MG per tablet Take 1 tablet by mouth dailyActive magnesium oxide (MAG-OX) 400 (240 Mg) MG tablet Take 0.5 tablets by mouth daily5Active metoprolol succinate (TOPROL XL) 25 MG extended release tablet Take 1 tablet by mouth dailyActive Multiple Vitamin (MULTIVITAMIN) TABS Take 1 tablet by mouth dailyActive pantoprazole (PROTONIX) 40 MG tablet Take 1 tablet by mouth dailyActive pioglitazone (ACTOS) 15 MG tablet Take 1 tablet by mouth dailyActive potassium chloride (KLOR-CON) 10 MEQ extended release tablet Take 1 tablet by mouth daily5Active pramipexole (MIRAPEX) 0.5 MG tablet Take 1 tablet by mouth 3 times dailyActive albuterol sulfate HFA (PROVENTIL;VENTOLIN;PROAIR) 108 (90 Base) MCG/ACT inhaler Indications:Paraseptal emphysema (HCC)Inhale 2 puffs into the lungs every 4 hours as needed for Shortness of Breath 51 g 5Active BEVESPI AEROSPHERE 9-4.8 MCG/ACT AERO Indications:Paraseptal emphysema (HCC)Inhale 2 puffs into the lungs 2 times daily 3 each 5Active ipratropium 0.5 mg-albuterol 2.5 mg (DUONEB) 0.5-2.5 (3) MG/3ML SOLN nebulizer solution Indications:Paraseptal emphysema (HCC)Take 3 mLs by nebulization every 6 hours 1080 mL 5Active fluticasone (FLOVENT HFA) 110 MCG/ACT inhaler Indications:Paraseptal emphysema (HCC)Inhale 2 puffs into the lungs 2 times daily 36 g 5Active theophylline (THEODUR) 300 MG extended release tablet Indications:Paraseptal emphysema (HCC)Take 1 tablet by mouth 2 times daily 180 tablet 5Active Active Problems ProblemNoted DateDiagnosed DateParaseptal emphysema Assessment & Plan (08/27/2025 9:04 AM EDT): Her breathing was doing well last visit 6 months ago. She did have 2 exacerbations since then. I donot feel that this is secondary to progression of her underlying COPD or the decrease in theophylline dose, but rather due to stress from the of her in April, and more recently due to non compliance adhering to her inhaler regimen. She is doing better now that she has resumed her previous treatment plan. No plans to change any of her medication regimen today. She was counseled to contact the office if she has another exacerbation. A xsfe-qw-fewr encounter was performed with the patient today in order to document continued need for a nebulizer with nebulized medications. -Current nebulized medications: DuoNeb -Symptom control: Improved with use -Reported side or adverse effects: None This documentation authorizes the renewal, reorder/refill, and replacement of the nebulizer and allassociated supplies. Orders: albuterol sulfate HFA (PROVENTIL;VENTOLIN;PROAIR) 108 (90 Base) MCG/ACT inhaler; Inhale 2 puffs into the lungs every 4 hours as needed for Shortness of Breath BEVESPI AEROSPHERE 9-4.8 MCG/ACT AERO; Inhale 2 puffs into the lungs 2 times daily ipratropium 0.5 mg-albuterol 2.5 mg (DUONEB) 0.5-2.5 (3) MG/3ML SOLN nebulizer solution; Take 3 mLsby nebulization every 6 hours fluticasone (FLOVENT HFA) 110 MCG/ACT inhaler; Inhale 2 puffs into the lungs 2 times daily theophylline (THEODUR) 300 MG extended release tablet; Take 1 tablet by mouth 2 times daily Chronic respiratory failure with hypoxia Assessment & Plan (08/27/2025 9:04 AM EDT): A hopy-iq-jltx encounter was performed with the patient today in order to document continued need for supplemental O2. -Flow & directions: 2L/min with activity -The patient voices adherence to recommended usage: Yes -The patient voices benefit/symptom control on O2: Yes -The patient was counseled patient not begin, restart, or continue smoking due to risk of fire which could result in damage to the O2 tanks & tubing, smoke inhalation and flame damage to the airway, significant garcia, property damage, , and potential harm & to bystanders. Additionally, the patient was counseled against beginning, restarting, or continuing to smoke given the unde rlying pulmonary disease that led to the point of requiring O2. -This documentation authorizes the renewal, reorder/refill, and replacement of O2 and all associated supplies. Cigarette nicotine dependence with nicotine-induced disorder Assessment & Plan (08/27/2025 9:04 AM EDT): Prior treatment: Chantix (made her feel poorly) Patient continues to smoke 1ppd. Stress from the loss of her is making it difficult for herto try to quit again. She does make attempts to stop, but it is difficult for her. Chantix caused some psychiatric side effects. Would avoid bupropion as she is on other antidepressants. She states she just needs to commit to stopping and do it. Orders: CT LUNG CANCER SCREENING (INITIAL/ANNUAL); Future History of pulmonary embolism Assessment & Plan (08/27/2025 9:04 AM EDT): Patient successfully completed a year of anticoagulation and is now off it. She is counseled if shehas another episode of VTE, she is looking at lifelong therapy. ROLANDO (obstructive sleep apnea) Assessment & Plan (08/27/2025 9:04 AM EDT): Managed by Dr. Khan DM2 (diabetes mellitus, type 2) Assessment & Plan (08/27/2025 9:04 AM EDT): Steroids prescribed for this patient's underlying pulmonary disease can adversely affect blood glucose levels, inducing hyperglycemia and/or worsening underlying diabetes. She was encouraged to follow-up with her primary care provider to create a management plan. Resolved Problems ProblemNoted DateDiagnosed DateResolved NnkmYcyqyldxcxddlr56/31/202510/28/2025 Irritable bowel syndrome with xeszlpvg53IDA (iron deficiency anemia)Gastroesophageal reflux disease without esophagitis Osteopenia after eojbaewbx88Restless leg vfzznjcv30Mixed tetgusglycstwg16nxiety and ptlxbbzuxl65 Overview (08/27/2025): 12/03/24: GAYLE 7=4, PHQ 9=5 Coronary-myocardial Overview (08/27/2025): Cath 2014- stable- metoprolol was stopped in 2020- most likely r/t pulmonary disease. Cath 2014- stable- metoprolol was stopped in 2020- most likely r/t pulmonary disease. Essential (primary) ncaepaqsidpz86 Encounters DateTypeDepartmentCare PtysSpmxgpmvnus21/09/2025bstract [facility] [address], [address] [place] [address] Calvin Russo DO 08/27/2025 8:00 AM EDTOffice Visit [facility] [address], [address] [place] [address] Calvin Russo DO Paraseptal emphysema (Primary Dx); Chronic respiratory failure with hypoxia; Cigarette nicotine dependence with nicotine-induced disorder; Encounter for screening for lung cancer; ROLANDO (obstructive sleep apnea); DM2 (diabetes mellitus, type 2); History of pulmonary kutawjds06/14/2025bstract [facility] [address], [facility] [address] [place] [address] Calvin Russo DO from Last 3 Months Family History Medical HistoryRelationNameCommentsLung CancerFatherLung DiseaseMotherRelation NameStatusCommentsFatherMother Social History Tobacco UseTypesPacks/DayYears UsedDateSmoking Tobacco: Every XtqBisfgagrom799 Started: 1982Smokeless Tobacco: Never Tobacco Cessation:Ready to Q uit: Yes; Counseling Given: Yes Alcohol UseStandard Drinks/WeekCommentsNever0 (1 standard drink = 0.6 oz pure alcohol)CommentsNoSex and Gender InformationValueDate RecordedSex Assigned at VwyxtZezlnh62/14/2025 9:16 AM EDTLegal JwgClfyng52/06/2025 3:05 PM EDTGender JbqoutirVjhkgc60/14/2025 9:16 AM EDTSexual OrientationStraight 08/13/2025 9:16 AM EDT Last Filed Vital Signs Vital SignReadingTime TakenCommentsBlood Smpueusp163/6810 7:59 AM EDT Jenqv988108/27/2025 7:59 AM TAAObfzatvrdef20.5 ??C (97.7 ??F)08/27/2025 7:59 AM EDTRespiratory Xauv8558 7:59 AM EDTOxygen Exnlcvbbnk22%08/27/2025 7:59 AM EDT3L J9Mmhvonv Oxygen Concentration--Eknfya063.7 kg (248 lb 6.4 oz) 08/27/2025 7:59 AM RACTwvzww828.3 cm (5' 9 )08/27/2025 7:59 AM EDTBody Mass Index36.6808/27/2025 7:59 AM EDT Plan of Treatment DateTypeDepartmentCare Team (Latest Contact Info)Thydgkagqlr25/28/2026 9:00 AM EDTOffice Visit [facility] [address] [place] [address] Calvin Russo DO [address] [facility] [address] [place] [address] F/U 6 MO. COPDHealth MaintenanceDue DateLast QhwmViflbbwpD7H test (Diabetic or Prediabetic)1974Diabetic foot exam11/06/19745015Edgtht17/07/1975Depression Lxztlt7311/06/1976HIV yjkxsh0511/06/1979Diabetic Alb to Cr ratio (uACR) test 1982Diabetic retinal exam1982GFR test (Diabetes, CKD 3-4, OR last GFR 15-59)1982Hepatitis C zfuekv2711/06/1982DTaP/Tdap/Td vaccine (1 - Tdap) 1983Pneumococcal 50+ years Vaccine (1 of 2 - PCV)1983Pap smear 1985Cervical cancer apenzu6811/06/1994HPV (without or with Pap)1994 Breast cancer xkfely1811/06/20045007Asyvdqxdssy97/07/2010Colorectal Cancer Screen 2009FIT/FOBT: Average risk2009Fecal-DNA (Cologuard): Average risk 2009Sigmoidoscopy/CT sqqlotllsydk30/07/2010Lung Cancer Screening &/or Tytjumkcad85/07/2015Shingles vaccine (1 of 2)2014Respiratory Syncytial Virus (RSV) or age 60 yrs+ (1 - Risk 60-74 years 1-dose series) 2024Flu vaccine (#1)510/, 07/16/2024, 08/12/2023, Additional history existsCOVID-19 Vaccine ( season)2025 Hepatitis A vaccineAged OutNo longer eligible based on patient's age to complete this topicHepatitis B vaccineAged OutNo longer eligible based on patient's age to complete this topicHib vaccineAged OutNo longer eligible based on patient's age to complete this topicMeningococcal (ACWY) vaccineAged OutNo longer eligible based on patient's age to complete this topicMeningococcal B vaccineAged OutNo longer eligible based on patient's age to complete this topicPolio vaccineAged OutNo longer eligible based on patient's age to complete this topic Insurance Care Teams Team MemberRelationshipSpecialtyStart DateEnd Date Brea Jj, LOGISTICS COORDINATOR - SEMI TRUCK DRIVER [address] [place] [id number] PCP - GeneralNurse Yfgglozltlnb22/6/25
--- OUTSIDE RECORDS SUMMARY | 2025-10-29 12:52 | XMS_ITS | Encounter Summary ---
Author Organization [facility] Address [address], [address] [place] [address] Care Team Providers Care Roofer Vinyl Coating Name Role Phone Brea Jj APRN - TOBIAS Primary Care Provide r Encounter Details DateTypeDepartmentCare Team (Latest Contact Info)Peiajonvoxk34/09/2025bstract [facility] [address] [place] [address] [facility] [address] [address] Social History Tobacco UseTypesPacks/DayYears UsedDateSmoking Tobacco: Every RhmYybwhipuzn583 Started: 1982Smokeless Tobacco: NeverAlcohol UseStandard Drinks/WeekComments Never0 (1 standard drink = 0.6 oz pure alcohol)CommentsNoSex and Gender InformationValueDate RecordedSex Assigned at BlceiBovdcm21/14/2025 9:16 AM EDT Legal ZnvLwhwso10/06/2025 3:05 PM EDTGender ZfbdjbmlCcvfnj66/14/2025 9:16 AM EDT Sexual LtamjnvunuvNrlcopix93/14/2025 9:16 AM EDTdocumented as of this encounter Plan of Treatment DateTypeDepartmentCare Team (Latest Contact Info)Vlcfajugwwi62/28/2026 9:00 AM EDTOffice Visit [facility] [address] [place] [address] [address] [place] [address] Calvin Russo DO [address] [address] [place] [address] F/U 6 MO. COPDdocumented as of this encounter Visit Diagnoses Not on filedocumented in this encounter Care Teams Team MemberRelationshipSpecialtyStart DateEnd Date Brea Jj, ADJUSTMENT CLERK - SHOW HOST OR HOSTESS [address] [place] [phone] PCP - GeneralNurse Gcsymetlknew85/6/25documented as of this encounter
--- OUTSIDE RECORDS SUMMARY | 2025-10-29 12:53 | XMS_ITS | Patient Health Record ---
Author Organization [facility] Address [address] [place] [address] Support Name Relationship Address Phone ALIYA CONDON Guarantor Unknown [phone] Reason For Referral No Information Social History Tobacco Use: Social History Observation Description Date Details (start date - stop date) Former Smoker 10/31/1980 - 07/30/2023 Smoking History Question Answer Notes Smoking Status Former Smoker When did you start smoking?10/31/1980When did you stop smoking?07/30/2023How long since you quit1 - 3 months Problems Problem Type SNOMED Code ICD Code Onset Dates Problem Status W/U Status Risk Notes Problem Osteoarthritis of knee (31597791 7) Primary osteoarthritis of left knee (M17.12) Activeconfirmed Plan Of Treatment No Information Insurance Providers Payer Name Payer Address Payer Phone Subscriber Number Group Number Insured Name Patient Relationship to Insured Coverage Start Date Coverage End Date Medicaid [place] [place] [address] [place] [id number] ALIYA CONDONSelf - patient is the insured
--- OUTSIDE RECORDS SUMMARY | 2025-10-29 12:53 | XMS_ITS | Clinical Summary ---
Author Organization [facility] Address [address] [place] [address] Care Team Providers Care Director Nurses' Registry Name Role Phone Brea Jj FORENSIC MANAGER Unavailable [phone] Jose M Light MD Primary Care Provider [phone] Brea Jj FORENSIC MANAGER Unavailable [phone] Allergies No known active allergies Medications MedicationSigDispense QuantityRefillsLast FilledStart DateEnd DateStatus Ventolin HFA 108 (90 Base) MCG/ACT inhaler INHALE 2 PUFFS BY MOUTH FOR SHOTNESS OF BREATH EVERY 4 HOURS NEEDEDActive Flovent HFA 110 MCG/ACT inhaler Inhale 2 puffs in the morning and 2 puffs before bedtime.Active OneTouch Ultra test strip USE ONCE DAILY HZBYQTDO89/18/2023ctive Bevespi Aerosphere 9-4.8 MCG/ACT aerosol Inhale 2 puffs in the morning and 2 puffs before bedtime.Active ipratropium-albuterol (Duo-Neb) 0.5-2.5 mg/3 mL nebulizer solution INHALE 3ML FOUR TIMES A DAYActive theophylline ER (Franki-Dur) 300 MG 12 hr tablet TAKE 1 12 TABLETS BY MOUTH EVERY 12 HOURS06/09/2023ctive fluocinonide (Lidex) 0.05 % cream Indications:Other atopic dermatitisApply thin layer (1 g) to lower legs, up to twice a day when flared, do not use one the face, groin, or underarms, 30 day supply 80 g 1105Active predniSONE (Deltasone) 20 MG tablet TAKE THREE TABLETS BY MOUTH DAILY FOR 3 DAYS,THEN 2 TABS FOR 3 DAYS, THEN 1 TAB FOR 3 DAYS.04/22/2025Active guaiFENesin-codeine (Robitussin-AC) 100-10 MG/5ML syrup TAKE 2 TEASPOONSFUL (10ML) BY MOUTH EVERY 6 HOURS DMNDKM9102/22/2025tive guaiFENesin (Mucinex) 600 MG 12 hr tablet TAKE ONE TABLET BY MOUTH TWICE A DAY NEEDED FOR SMAIUQRCMP33/25/2025tive FeroSul 325 (65 Fe) MG tablet Take 325 mg by mouth in the morning. Take with meals.01/31/2025tive dicyclomine (Bentyl) 20 MG tablet See Instructions, when needed, Refills(s) tive celecoxib (CeleBREX) 200 MG capsule Take 200 mg by mouth DailyActive benzonatate (Tessalon) 100 MG capsule Take 100 mg by mouth 3 (three) times a day as needed for cough02/22/2025tive clonazePAM (KlonoPIN) 0.5 MG tablet Indications:Anxiety and depression,Restless leg syndrome,Other insomniaTAKE 1 TABLET (0.5 MG) BY MOUTH AT BEDTIME 30 tablet 5Active Multiple Vitamin (Multivitamin) tablet Take 1 tablet by mouth Daily05/02/2025tive metoprolol succinate XL (Toprol-XL) 25 MG 24 hr tablet Take 25 mg by mouth DailyActive doxepin (SINEquan) 10 MG capsule Take 10 mg by mouth at bedtimeActive Calcium Carb-Cholecalciferol 600-5 MG-MCG tablet Take 1 tablet by mouth in the morning and 1 tablet before bedtime.05/02/2025 Active atorvastatin (Lipitor) 40 MG tablet Indications:Mixed hyperlipidemiaTake 1 tablet (40 mg) by mouth at bedtime 30 tablet 5Active busPIRone (Buspar) 15 MG tablet Indications:Anxiety and depressionTake 1 tablet (15 mg) by mouth in the morning and 1 tablet (15 mg) before bedtime. 60 tablet tive DULoxetine (Cymbalta) [address] capsule Indications:Anxiety and depressionTake 1 capsule (60 mg) by mouth Daily 30 capsule 5Active furosemide (Lasix) 20 MG tablet Indications:Edema of both lower extremitiesTake 1 tablet (20 mg) by mouth Daily 30 tablet 5Active gabapentin (Neurontin) 300 MG capsule Indications:Restless leg syndromeTake 1 capsule (300 mg) by mouth Daily 30 capsule tive lisinopril-hydroCHLOROthiazide 20-25 MG tablet Indications:Primary hypertensionTake 1 tablet by mouth Daily 30 tablet tive pantoprazole (ProtoNix) 40 MG EC tablet Indications:Gastroesophageal reflux disease without esophagitisTake 1 tablet (40 mg) by mouth in the morning. Take before meals. Do not crush, chew, or split. 30 tablet tive pioglitazone (Actos) 15 MG tablet Indications:Type 2 diabetes mellitus without complication, without long-term current use of insulin (HCC)Take 1 tablet (15 mg) by mouth Daily 30 tablet tive pramipexole (Mirapex) 0.5 MG tablet Indications:Restless leg syndromeTake 1 tablet (0.5 mg) by mouth at bedtime 30 tablet tive lamoTRIgine (LaMICtal) 25 MG tablet Indications:Anxiety and depressionTake 2 tablets (50 mg) by mouth at bedtime 60 tablet tive Active Problems ProblemNoted DateDiagnosed HouqCgtbavarpmjiyc06/31/2025 Assessment & Plan (05/30/2025 10:53 AM EDT): Start supplement Recheck in 10 days fluids MARLIN (acute kidney injury)05/30/2025Vomiting and hnbzstcu18/29/2025 Assessment & Plan (05/28/2025 12:50 PM EDT): Does have low blood pressure, which is likely related to dehydration as well as starting her b aleks recently by cardiology We will order some labs and see where things stand as well Encounter for wellness examination in adult02/25/2025 Assessment & Plan (02/25/2025 10:30 AM EDT): Reviewed Ht/Wt/BMI Recommend eye exam yearly Recommend dental exams twice a year Exercises is recommended most days of the week (appropriate as chronic conditions allow) Follow up yearly and prn COPD iebarswhabgx82/28/2025 Assessment & Plan (02/25/2025 10:31 AM EDT): In Er 02/21/25 Currently on meds for this If worsening in symptoms please call dr avendano's office If severe sxs go to ER Centril[facility] /26/2025 Assessment & Plan (12/26/2024 6:39 AM EST): Continues with pulmonary Samsa Cont current inhalers Occult blood positive stool12/25/2024 Assessment & Plan (12/26/2024 6:43 AM EST): Neg cultures +stool for OB Referred to GI Nausea & ollkwxhw82/03/2025 Assessment & Plan (12/03/2024 9:41 AM EST): Has zofran for prn Check labs Irritable bowel syndrome with zcweypku67/03/2025 Assessment & Plan (12/26/2024 10:25 AM EST): Stool sample results reviewed I have referred her to GI in [place] Will trial Xifaxin for for IBS-D Has failed: immmodium, pepto Sxs could also be gallbladder related as well #3 samples: lot: [id number] exp 04/26 Assessment & Plan (12/03/2024 9:42 AM EST): Check sample Check labs ??IBS Fu in 3 weeks Weight loss, ontuqpyigerkh65/03/5388Ajak32/30/2024 Assessment & Plan (12/03/2024 9:21 AM EST): [...] and irritated from the itch/scratch cycle ?eczema? Unrttsbemiuwcrz78/30/2024 Assessment & Plan (10/29/2024 6:32 PM EST): Was in the ER on 10/27/24, see notes, was given IV fluids Resolved at this time JONNY (iron deficiency anemia)10/29/2024 Assessment & Plan (02/25/2025 6:40 AM EDT): Current med: ferrous sulfate Check labs periodically, also with dose changes or changes in sxs History of pulmonary agjcqbea92/24/2024hronic respiratory failure with hypoxia 05/23/2024 Assessment & Plan (12/26/2024 6:40 AM EST): Has oxygen therapy Continue inhalers Follows with Dr Avendano Assessment & Plan (12/03/2024 6:09 AM EST): Has oxygen therapy Continue inhalers Follows with Dr Avendano Assessment & Plan (05/23/2024 10:14 AM EDT): Wears oxygen and Continue w pulmonology Atherosclerosis of aorta05/23/2024 Assessment & Plan (05/23/2024 6:54 AM EDT): Cont statin Other mooukus6405/23/2024 Assessment & Plan (05/23/2024 10:18 AM EDT): D/w pt multi factoral, such as depression/anxiety/, vit def, untreated ROLANDO Check labs Gastroesophageal reflux disease without utspfhnsvwr85/24/2024 Assessment & Plan (05/28/2025 6:18 AM EDT): [...] pantoprazole Fu in 6 -8 weeks Vitamin /11/2024Osteopenia after aelkbfuue75/09/2024Encounter for screening mammogram for malignant neoplasm of cflszi7902/21/2024rthritis 12/05/2023Other pulmonary embolism without acute cor uqfvjvpyn64/05/2024ody mass index (BMI) 37.0-37.9, adult12/05/2023Other /20/2023 Assessment & Plan (01/10/2024 10:46 AM EDT): [...] sleep issues Class 2 severe obesity due to excess [...] without complication, without long-term current use of uahadxs2210/19/2023 Assessment & Plan (05/28/2025 6:18 AM EDT): [...] sugars. Check A1c test ROLANDO (obstructive sleep apnea)10/19/2023 Assessment & Plan (05/28/2025 6:17 AM EDT): [...] shortness of breath as well Restless leg ncpebjyr44/13/2023 Assessment & Plan (05/28/2025 6:16 AM EDT): [...] helps with this as well Anxiety and stklttfkcy23/13/2023 Overview (12/03/2024): 12/03/24: GAYLE 7=4, PHQ 9=5 [...] would like counseling Refer to [facility] Assessment & Plan (12/03/2024 9:21 AM [...] as of last week, no living in [place], much less stress Essential (primary) qzbhpjoxqrti26/13/2023 Assessment & Plan (05/28/2025 6:17 AM EDT): [...] AM EDT): No med dose changes Mixed bdrgvtvkcexinx13/13/2023 Assessment & Plan (05/28/2025 6:19 AM EDT): On statin therapy Check labs yearly and prn dose changes Tobacco dependence eozwqzqw95/24/2023 Overview (12/05/2023): Last Assessment & Plan: Provider [...] toprovider when ready to start this process WOODY (dyspnea on exertion)12/24/2022 Overview (12/05/2023): female presents to clinic for f/u for HTN, myocardial bridge of LAD, COPD, dsypnea. CUrrently states she is feeling well, denied chest pain, reports typical shortness of breath with exertion- on oxygen 23/05, denied orthopnea. Last Assessment & Plan: Stable, f/u with Dr Avendano Edema of both lower rsqfudpphom10/24/2023 Overview (12/05/2023): Last Assessment & Plan: Currently well controlled with lasix Assessment & Plan (05/28/2025 6:18 AM EDT): Takes lasix prn Assessment & Plan (10/29/2024 7:41 AM EST): Takes lasix prn COPD mixed type12/24/2022 Assessment & Plan (05/23/2024 10:14 AM EDT): Continue with pulmonology Assessment & Plan (12/05/2023 9:06 AM EST): Continue with pulmonology Recommend Pneuomovax Resolved Problems ProblemNoted DateDiagnosed DateResolved DateMorbid (severe) obesity due to excess mysffimk81/reast pain, left Assessment & Plan (02/21/2024 9:44 AM EDT): Normal breast exam, denies any skin changes, or palpable mass, No abnormal on BSE. Due for mammogram in 03/2024 Acute non-recurrent maxillary ihyrcflwb42 Assessment & Plan (01/10/2024 10:48 AM EDT): Fluids, rest Finished atb Right upper quadrant abdominal pain Assessment & Plan (05/23/2024 10:14 AM EDT): Monitor at this time Intermittent doing ok at this time Assessment & Plan (01/10/2024 10:48 AM EDT): Will review ER notes Immunizations ImmunizationAdministration DatesNext DueInfluenza, High Dose Seasonal, Preservative Free07/01/2020Influenza, Seasonal, Quadrivalent, Adjuvanted 08/12/2023Influenza, Uskqimaxeuq20/14/2024Influenza, injectable, quadrivalent 08/09/2022,07/18/2020Influenza, seasonal, lctdihmema79/16/2024 Family History Medical HistoryRelationNameCommentsHeart diseaseFatherCOPDMotherMelanomaNeg Hx RelationNameStatusCommentsFatherDeceasedMaternal GrandfatherDeceasedMaternal GrandmotherDeceasedMotherDeceasedPaternal GrandfatherDeceasedPaternal GrandmotherDeceased Social History Tobacco UseTypesPacks/DayYears UsedDateSmoking Tobacco: FormerCigarettes Smokeless Tobacco: Never Tobacco Cessation:Counseling Given: Not Answered Comments:11-20 cigarettes/day Alcohol UseStandard Drinks/WeekCommentsNever0 (1 standard drink = 0.6 oz pure alcohol)caffeine 2-3 cups per dayAUDIT-CAnswerDate RecordedQ1: How often do you have a drink containing alcohol?Never04/21/2023Q2: How many drinks containing alcohol do you have on a typical day when you are drinking?Patient does not drink04/21/2023Q3: How often do you have six or more drinks on one occasion? Never3PHQ-2AnswerDate RecordedPatient Health Questionnaire-2 Score1 4CommentsNoSex and Gender InformationValueDate RecordedSex Assigned at TznjbCyyhhs42/21/2023 11:58 AM EDTLegal KmfNpmmci45/15/2023 6:39 PM EDTGender ZqxpmygeBjcyso94/21/2023 11:58 AM EDTSexual OrientationStraight 04/20/2023 11:58 AM EDT Last Filed Vital Signs Vital SignReadingTime TakenCommentsBlood Ozahobqg11/60005/28/2025 9:34 AM EDT Hciie457505/28/2025 9:02 AM ZGALcojjsjccij82.7 ??C (98.1 ??F)05/28/2025 9:02 AM EDTRespiratory Cqix277705/28/2025 9:02 AM EDTOxygen Rnsgixvyub27%05/28/2025 9:02 AM EDTInhaled Oxygen Concentration--Pysqgc081 kg (251 lb 12.8 oz)05/28/2025 9:02 AM MZDLgzwqh024.3 cm (5' 9 )12/26/2024 9:46 AM ESTBody Mass Index37.18012/26/2024 9:46 AM EST Plan of Treatment Health MaintenanceDue DateLast DoneCommentsCT Qxyremngqhcj06/07/1965FIT-DNA 1965FIT1965FOBT1965 7238Iwdgffuxcmoqd15/07/1965Pneumococcal Vaccine: Pediatrics (0 to 5 Years) and At-Risk Patients (6 to 64 Years) (1 of 2 - PCV)1983Pap Smear1985Diabetes: Urine Protein Rrkaxtpyp32/16/2025 03/15/2024, 04/14/2023Influenza Vaccine (#1), 07/16/2024, 08/12/2023, Additional history existsDiabetes: Hemoglobin A1C11/28/2025 05/28/2025, 02/25/2025, 10/29/2024, Additional history clqavtDabgsfydf55/18/2026 04/17/2025, 04/16/2024, 3Diabetes: Retinopathy Nsgjqncaa86/04/2027 01/01/2025, 3Cervical Cancer Snwfeixaw42/24/2028HPV/Bgfwxq5006/23/2028 06/23/20239116Luujvhovqse08Colorectal Cancer Ujsldcnpk91/01/2030 Procedures Procedure NamePriorityDate/TimeAssociated DiagnosisCommentsPOCT GLYCOSYLATED HEMOGLOBIN (HGB A1C)Jmgwidy6505/28/2025 9:15 AM EDT Type 2 diabetes mellitus without complication, without long-term current use of insulin (HCC) MM TOMOSYNTHESIS SCREENING BI04/17/2025 4:38 PM EDT THINPREP PAP AND HPV MRNA E6/E7 W/RFL HPV 16,18/90Qsrpnkx10/24/2023 10:28 AM EDT Screening for cervical cancer Encounter for gynecological examination without abnormal finding from Last 3 Months or Most Recently Relevant to Health Maintenance Results * (ABNORMAL) POCT glycosylated hemoglobin (Hb A1C) docked device (05/28/2025 9:15 AM EDT)ComponentValueRef RangeTest MethodAnalysis TimePerformed At Pathologist SignatureHemoglobin A1C6.3Specimen (Source)Anatomical Location / LateralityCollection Method / VolumeCollection TimeReceived TimeBloodVenous blood specimen / Icuxiuk0405/28/2025 9:15 AM EDT Narrative Authorizing ProviderResult TypeResult StatusLisa Angelylloyd NPPOINT OF CARE TEST ENTER/EDIT ORDERABLESFinal Result * MM TOMOSYNTHESIS SCREENING BI (04/17/2025 4:38 PM EDT)Anatomical Region LateralityModalityOtherSpecimen (Source)Anatomical Location / Laterality Collection Method / VolumeCollection TimeReceived Time04/17/2025 4:38 PM EDT Narrative 04/17/2025 4:39 PM EDT [facility] ?[address] ? [place] [address] ? Mammography Report ? Signed ? Patient: MOORE,SIS J ?MR#: [id number] ?? : 1965 ?Acct:[id number] ?? Age/Sex: 59 / F ?ADM Date: 06/18/25 ?? Loc: MAMMO ? Attending Dr: Brea Jj FORENSIC MANAGER ? Ordering Physician: Brea Jj NP ?Results: ? Date of Service: 04/17/25 ?Follow Up: ? Procedure(s): MM tomosynthesis screening BI ?? Accession Number(s): [id number] ? cc: Brea Jj NP ? Patient Name: ? SIS MOORE ? MR#: [id number] ? : 1965 ? Exam Date: 04/17/2025 ?? Ordering Doctor: ENRIQUE JJ CNP ? RADIOLOGY REPORT ? PROCEDURE: ? MM TOMOSYNTHESIS SCREENING BI ? COMPARISON: ? MM TOMOSYNTHESIS SCREENING BI, 04/16/2024. ??MM TOMOSYNTHESIS ?? SCREENING BI, 04/14/2023. ??MG MAMM SCREEN 3D EMY CAD, 04/30/2022. ??MG MAMM EMY ?? SCRN W CAD DIG, 09/05/2007. ? INDICATIONS: ? Screening ? Calculator Name ? NCI Breast Cancer Risk Assessment Tool ?? 5 Year Breast Cancer Risk ? 0.90% ?? Lifetime Breast Cancer Risk ? 4.90% ?? Personal Breast Cancer ?No ?? Personal Ovarian Cancer ? No ?? Treatments ? None ?? Family Cancers ? None ? LOCATION: ? [facility] ? BREAST COMPOSITION: ? The breasts are almost entirely fatty. ? FINDINGS: ? DIAGNOSTIC CATEGORY 1--NEGATIVE. ? RIGHT BREAST: ??No significant suspicious finding. ? LEFT BREAST: ??No significant suspicious finding. ? RECOMMENDATIONS: ? ROUTINE MAMMOGRAM AND CLINICAL EVALUATION IN 12 MONTHS. ? PLEASE NOTE: ??A NORMAL MAMMOGRAM DOES NOT EXCLUDE THE POSSIBILITY OF BREAST ?? CANCER. ??A CLINICALLY SUSPICIOUS PALPABLE LUMP SHOULD BE BIOPSIED. ? Dictated by: Malcom Andre DO on 04/17/2025 at 16:37 ? Approved by: Malcom Andre DO on 04/17/2025 at 16:38 ? Dictated By: ?Malcom Andre M.D. ? Signed By: ?04/17/25 1639 ? DD/ 1638 ? TD/TT: ? Sock Boarder: Procedure Note Radiology, Radiologist, MD - 04/17/2025 [place] [address] Mammography Report Signed Patient: SIS MOORE JMR#: [id number] : 1965Acct:[id number] Age/Sex: 59 / FADM Date: 04/17/25 Loc: MAMMO Attending Dr: Brea Jj FORENSIC MANAGER Ordering Physician: Brea Jj NPResults: Date of Service: 04/17/25Follow Up: Procedure(s): MM tomosynthesis screening BI Accession Number(s): [id number] cc: Brea Jj NP Patient Name: SIS MOORE MR#: [id number] : 1965 Exam Date: 04/17/2025 Ordering Doctor: [...] Treatments None Family Cancers None LOCATION: [facility] BREAST COMPOSITION: The breasts are [...] Malcom Andre M.D. Signed By:04/17/25 1639 DD/ TD/TT: Sock Boarder: Authorizing ProviderResult TypeResult StatusTonsil Hospital NPCLINISYNC IMAGING Final Result * THINPREP PAP AND HPV MRNA E6/E7 W/RFL HPV 16,18/45 (06/23/2023 10:28 AM EDT) ComponentValueRef RangeTest MethodAnalysis TimePerformed AtPathologist SignatureCLINICAL INFORMATIONQUESTComment:None givenLMPQUESTComment:None given PREV. PAPQUESTComment:None givenPREV. BXQUESTComment:None givenSOURCEQUEST Comment:None givenSTATEMENT OF ADEQUACYQUESTComment:SATISFACTORY FOR EVALUATIONINTERPRETATION/RESULTQUESTComment: Cytology Results: Negative for intraepithelial lesion or malignancy. Atrophic pattern; predominantly parabasal cells COMMENTQUESTComment: Parabasal cells in smears that lack maturation due to atrophy or other hormonal reasons cannot be differentiated from transformation zone cells. Accordingly, presence or absence of endocervical or transformation zone components cannot be reported in this patient. CYTOTECHNOLOGISTQUESTComment: COLE BRAVO(ASCP) CT screening location: [employer] [facility], [address] [place] [address], [place] [address]. (ALWAYS MESSAGE)QUESTComment: EXPLANATORY NOTE: The Pap is a screening test for cervical cancer. It is not a diagnostic test and is subject to false negative and false positive results. It is most reliable when a satisfactory sample, regularly obtained, is submitted with relevant clinical findings and history, and when the Pap result is evaluated along with historic and current clinical information. HPV MRNA E6/E7Not DetectedNot DetectedQUESTComment: Methodology: Derrick Worker-Mediated Amplification This assay detects E6/E7 viral messenger RNA (mRNA) from 14 high-risk HPV types (16,18,31,33,35,39,45,51,52,56,58,59,66,68). Cervical sources are required for HPV testing. If a vaginal source from a patient who has had a total hysterectomy with removal of cervix was submitted, please contact the testing laboratory for alternative testing options. For additional information, please refer to http://education.[employer]/faq/YTS055a9 (This link if provided for information/ educational purposes only.) Specimen (Source)Anatomical Location / LateralityCollection Method / Volume Collection TimeReceived NvbbHxnmd01/24/2023 10:28 AM EDT06/24/2023 4:13 AM EDT Narrative Resulting Agency Comment Performing Organization Information ?Site ID: [id number] ?Name: [employer] [facility] ?Address: [address] [place] [address], [address] [place] [phone] ?Director: Zaki Prasad MD Authorizing ProviderResult TypeResult StatusStepjuli Kline NPLAB BLOOD ORDERABLESFinal ResultPerforming OrganizationAddressCity/State/ZIP CodePhone Number [facility]ST from Last 3 Months or Most Recently Relevant to Health [place] [address] Care Teams Team MemberRelationshipSpecialtyStart DateEnd Date Jose M Light MD PCP - [facility]10/18/23 Brea Jj NP [address] [place] [address] PCP - [facility]07/31/24 Brea Jj NP Nurse PractitionerMem[facility]10/18/23
--- OUTSIDE RECORDS SUMMARY | 2025-10-29 12:53 | XMS_ITS | Patient Health Record ---
Author Organization [facility] in [place] Address [address] [place] [address] Care Team Providers Care Junior Brand Manager Name Role Phone Brea Jj CNP Primary Care Provider Unavail able Calvin Gaines Unavailable [phone] Allergies No Known Allergies Results Component Value Reference Range Notes CT lung screening low-dose ( Not yet reviewed by provider) Interpretation: Performing Lab: Notes/Report: Source Facility: [place] [address] CT Scan Report Signed Patient: SIS MOORE MR#: [id number] : 1965 Acct:[id number] Age/Sex: 59 / F ADM Date: 06/24/25 Loc: CT Attending Dr: Calvin Gaines D.O. Ordering Physician: Calvin Gaines D.O. Date of Service: 06/24/25 Procedure(s): CT lung screening low-dose Accession Number(s): [id number] cc: Brea Jj NP [place] [id number] Patient Name: SIS MOORE MRN: [id number] date: 1965 Sex: F Assigned Patient Location: CT Current Patient Location: CT Accession/Order Number: [id number] Exam Date: 06/24/2025 10:08 Report Date: 06/24/2025 [...] Rasmussen M.D. 06/24/2025 11:52 AM Dictation Location: [place] [address] Electronically authenticated by: [id number] Y Date: 06/24/2025 11:52 Dictated By: Krystyna Rasmussen M.D. Signed By: 06/24/25 1155 DD/ 1152 TD/TT: [employer] Repairer: CT Chest Low Dose for Screen ing* Reviewed date:06/24/2025 01:46:56 PM Interpretation: Performing Lab: Notes/Report: Reason For Referral No Information Medications Medication SIG (Take, Route, Frequency, Duration) Notes Start Date End Date Status Bevespi Aerosphere 9-4.8 MCG/ACT 2 puffs Inhalation BID; Duration: 90 days Dispense #3 inhalers ActiveTheophylline ER 300 mg1 + 1/2 tablets oral BID; Duration: 90 daysActive Fluticasone Propionate HFA 110 MCG/ACT 2 puffs Inhalation BID; Duration: 90 days Rinse after use ; Dispense #3 inhalers 4ActivepredniSONE 20 MG 3 tabs x 3 days, 2 tabs x 3 days, 1 tab x 3 days Orally Once a day; Duration: 9 days Take with food 5ActiveDoxepin HCl 10 MG1 capsule at bedtime Orally Once a dayActive Potassium Chloride ER 10 MEQ1 tablet with food Orally Twice a dayActive DULoxetine HCl 60 MG1 capsule Orally Once a dayActivePramipexole Dihydrochloride 0.5 MG1 tablet Orally Once a dayActiveclonazePAM 0.5 MGTAKE 1 TABLET (0.5 MG) BY MOUTH AT BEDTIME Oral; Duration: 30 DaysActiveLisinopril-hydroCHLOROthiazide 20- 25 MG1 tablet Orally Once a dayActivePioglitazone HCl 15 MG1 tablet Orally Once a dayActiveFeroSul 325 (65 Fe) MGTAKE ONE TABLET BY MOUTH ONCE DAILY Oral; Duration: 28 DaysActiveFluticasone Propionate 50 MCG/ACT2 sprays in each nostril Nasally Once a day; Duration: 30 daysActiveAspirin 81 81 MG1 tablet Orally Once a dayActiveAtorvastatin Calcium 40 MG1 tablet Orally Once a dayActiveXanax 0.25 MG1 tablet Orally Twice a dayActiveCarafate 1 GM1 tablet on an empty stomach Orally Twice a dayActiveLaMICtal 25 MG1 tablet OrallyActiveCelecoxib 200 MGTAKE ONE CAPSULE BY MOUTH ONCE DAILY IN THE MORNING Oral; Duration: 30 DaysActive Lasix 20 MG1 tablet Orally Once a dayActiveGabapentin 300 MG1 capsule Orally Once a dayActivebusPIRone HCl 15 MG1 tablet Orally Twice a dayActiveIpratropium- Albuterol 0.5-2.5 (3) MG/3ML3mL Inhalation QID; Duration: 90 daysActiveAlbuterol Sulfate HFA 108 (90 Base) MCG/ACT 2 [...] long has it been since you last smoked?Less than 1 monthAdditional Findings: Tobacco mlz-rertIi-ngwtd cigarette smoker (1-9/day) Problems Problem Type SNOMED Code ICD Code Onset Dates Problem Status W/U Status Risk Notes Problem Chronic obstructive pulmonary disease (94137044) Chronic obstructive pulmonary disease, unspecified (J44.9) ActiveconfirmedProblemObesity (939445779)Obesity, unspecified (E66.9)Active confirmedProblemChronic respiratory failure (55010907)Chronic respiratory failure with hypoxia (J96.11)ActiveconfirmedProblemLong-term current use of inhaled steroid (728412998)FDC (current) use of inhaled steroids (Z79.51) ActiveconfirmedProblemPulmonary embolism (56303056)Pulmonary embolism (I26.99) ActiveconfirmedProblemCoronary artery disease (68111148)Coronary artery disease (I25.10)ActiveconfirmedProblemObstructive sleep apnea (10775242)Obstructive sleep apnea (G47.33)ActiveconfirmedProblemMental disorder caused by drug (163668815)Cigarette nicotine dependence with nicotine-induced disorder (F17.219)ActiveconfirmedProblemIron deficiency anemia (99903496)Iron deficiency anemia (D50.9)ActiveconfirmedProblemType II diabetes mellitus well controlled (417585269)Diabetes mellitus type 2, controlled (E11.9)ActiveconfirmedProblem Paraseptal emphysema (19097262)Paraseptal emphysema (J43.8)Activeconfirmed ProblemScreening for malignant neoplasm of lung (607268715)Encounter for screening for lung cancer (Z12.2)ActiveconfirmedProblemSecondary pulmonary hypertension (71620301)Other secondary pulmonary hypertension (I27.29)Active confirmedProblemHistory of COVID-19 (203582587830614869)History of COVID-19 (Z86.16)Activeconfirmed Vital Signs Heart Rate 93 /min 01/30/2025 Ojqnxshgfht65.8 degrees Ksamgueovm49/02/2025Respiratory Rate20 /min01/30/2025 Blood pressure bqhryhfsj39 mm Hg01/30/20254961Xpnfmxwv60 %01/30/20250297Ibcbwd33 in 01/30/2025lood pressure mm Hg01/30/20259774Lquboo663.4 lbs01/30/2025MI 38.15 kg/m201/30/2025 Procedures Procedure Date Ordered Date Performed Result Body Sit e Six minute walk 01/30/2025 02/15/2025 N/A Encounters Encounter Location Date Provider Diagnosis Pulmonary Medicine [place] [address] [place] [address] 01/30/2025 Calvin Gaines Chronic respiratory failure with hypoxia J96.11 ; Paraseptal emphysema J43.8 ; Cigarette nicotine dependence with nicotine-induced disorder F17.219 ; Pulmonary embolism I26.99 ; Obstructive sleep apnea G47.33 ; Diabetes mellitus type 2, controlled E11.9 ; FDC (current) use of inhaled steroids Z79.51 and Obesity, unspecified E66.9 Pulmonary Medicine [place] [place] [address] [place] [address] 01/21/2025 [facility] Pulmonary Medicine [address] [place] [address]/ Calvin GainesChronic obstructive pulmonary disease with (acute) exacerbation J44.1Pulmonary Medicine [address] [place] [address]/ [facility] J43.8 Assessments Encounter Date Diagnosis (ICD Code) Assessment Notes Treatment Notes Treatment Clinical Notes Section Notes 01/30/2025 Chronic respiratory failure with hypoxia (ICD-10 - J96.11) Vbcx-yw-lvme encounter performed with the patient to document continued need for supplemental oxygen (O2). -Flow & directions: Currently on room air at rest and 2L/min O2 with activity.- Patient voices adherence to recommended usage: Yes-Symptom control [...] ordering 6-minute walk to requalify the patient. 02/19/2025hronic obstructive pulmonary disease with (acute) exacerbation (ICD- 10 - J44.1)05/14/2025Paraseptal emphysema (ICD-10 - J43.8)01/30/2025igarette nicotine dependence with nicotine-induced disorder (ICD-10 - [...] LDCT is due end of April 2025. 01/30/2025Paraseptal emphysema (ICD-10 - J43.8) It has now [...] still experience side effects such as N/V &diarrhea. As her breathing has been relatively stable [...] return in 6 months for longitudinal evaluation. Ezhp-mj-rfry encounter performed with the patient to document continued need for a nebulizer with nebulized medications. -Current nebulized medications: DuoNeb -Symptom control: Assists in control when Flovent + Bevespi are not enough, especially during weather changes -Reported side or adverse effects: None -Recommendations: Continue DuoNeb with nebulizer. Refill nebulizer and nebulizer supplies as necessary. 01/30/2025Pulmonary embolism (ICD-10 - I26.99) Unprovoked pulmonary emboli identified on CTA 06/16/2023 - Hypercoaguable w/up was negative. F/U with hematology. 01/30/2025Obstructive sleep apnea (ICD-10 - G47.33) Managed by Dr. Khan. 01/30/2025Diabetes mellitus type 2, controlled (ICD-10 - E11.9) Steroids prescribed for this patient's underlying pulmonary disease can adversely affect blood glucose levels, inducing hyperglycemia and worsening underlying diabetes. The patient is encouraged to follow up with the primary care provider to create a plan to manage diabetes in this situation. 01/30/2025Long term (current) use of inhaled steroids (ICD-10 - Z79.51) Patient was counseled to rinse & gargle with water after inhaled corticosteroid use. 01/30/2025Obesity, unspecified (ICD-10 - E66.9) Patient's weight is inducing a restrictive pulmonary physiology. Weight loss indicated: Decrease calories, increase activity. 01/30/2025Other Plan Of Treatment Pending Test Test Name Order Date CT lung screening low-dose 06/24/2025 Insurance Providers Payer Name Payer Address Payer Phone Subscriber Number Group Number Insured Name Patient Relationship to Insured Coverage Start Date Coverage End Date [employer] [place] [employer] [address] [place] [phone] [id number] MooreJessi - patient is the [id number] 2022 Medical (General) History Medical History History ICD Code Paraseptal emphysema J43.8 Chronic respiratory failure with hypoxia J96.11 FDC (current) use of inhaled stero ids Z79.51 [...] D50.9 Surgical History Surgery Date(Month/Year) tubal ligation Cardiac Dasicfwxbvujwyg40/16/2021ight Foot Surgerycesarean sectionarthroscopic knee surgery-leftHospitalization History Reason Date(Month/Year) Pulmonary embolism 06/16/2023
--- OUTSIDE RECORDS SUMMARY | 2025-10-29 12:53 | XMS_ITS | Clinical Summary ---
Author Organization [facility] Address [address] [place] [address] Care Team Providers Care Management Advisor Name Role Phone Brea Jj MD Primary Care Provider [phone] Allergies No known active allergies Medications MedicationSigDispense QuantityRefillsLast FilledStart DateEnd DateStatus albuterol 90 mcg/actuation inhaler Ventolin HFA 90 mcg/actuation aerosol inhaler INHALE 2 PUFFS EVERY 4 HOURS NEEDED FOR SHORTNESS OF BREATHActive ALPRAZolam (Xanax) 0.25 mg tablet alprazolam 0.25 mg tablet TAKE ONE TABLET BY MOUTH DAILY NEEDED FOR ACUTE ANXIETYActive aspirin 81 mg EC tablet aspirin 81 mg tablet,delayed release TAKE 1 TABLET BY MOUTH DAILYActive atorvastatin (Lipitor) 40 mg tablet atorvastatin 40 mg tablet TAKE ONE TABLET BY MOUTH DAILYActive lamoTRIgine (LaMICtal) 25 mg tablet TAKE TWO TABLETS BY MOUTH ONCE DAILY AT RIYJIIO4812/15/2022ctive lisinopriL-hydrochlorothiazide 20-25 mg tablet lisinopril 20 mg-hydrochlorothiazide 25 mg tablet TAKE ONE TABLET BY MOUTH DAILYActive gabapentin (Neurontin) 300 mg capsule gabapentin 300 mg capsule TAKE ONE CAPSULE BY MOUTH DAILY AT 5PMActive glycopyrrolate-formoteroL (Bevespi Aerosphere) 9-4.8 mcg HFA aerosol inhaler Bevespi Aerosphere 9 mcg-4.8 mcg HFA aerosol inhaler INHALE 2 PUFFS TWICE A DAYActive busPIRone (Buspar) 15 mg tablet Take 15 mg by mouth in the morning and at bedtime.12/15/2022ctive DULoxetine (Cymbalta) [address] capsule duloxetine 60 mg capsule,delayed release TAKE ONE CAPSULE BY MOUTH ONCE DAILYActive fluticasone (Flovent) 110 mcg/actuation inhaler Flovent HFA 110 mcg/actuation aerosol inhaler INHALE 2 PUFFS TWICE A DAY -RINSE MOUTH AFTER USEActive pioglitazone (Actos) 15 mg tablet pioglitazone 15 mg tablet TAKE ONE TABLET BY MOUTH ONCE DAILYActive theophylline ER (Uniphyl) 400 mg 24 hr tablet theophylline ER 400 mg tablet,extended release 24 hr TAKE ONE TABLET BY MOUTH TWICE A DAYActive Eliquis 5 mg tablet Take 5 mg by mouth in the morning and at bedtime.07/15/2023ctive pramipexole (Mirapex) 0.5 mg tablet Take 0.5 mg by mouth with breakfast.07/13/2023ctive potassium chloride CR (Klor-Con) 10 mEq ER tablet Indications:Benign essential HTN,Coronary-myocardial bridge,Edema of both lower extremitiesTAKE ONE TABLET BY MOUTH ONCE DAILY 90 tablet ctive furosemide (Lasix) 20 mg tablet Indications:Edema, unspecified typeTAKE ONE TABLET BY MOUTH ONCE DAILY 90 tablet ctive ferrous sulfate 325 (65 Fe) MG tablet Take 325 mg by mouth in the morning.01/31/2025tive pantoprazole (ProtoNix) 40 mg EC tablet Take 40 mg by mouth before breakfast.Active multivitamin tablet Take 1 tablet by mouth in the morning.03/06/2025tive metoprolol succinate XL (Toprol-XL) 25 mg 24 hr tablet Indications:Coronary-myocardial bridge,Dyspnea on exertionTake 1 tablet (25 mg) by mouth once daily as directed. Do not crush or chew. 90 tablet ctive Active Problems ProblemNoted DateDiagnosed CxbrWcritwot65/29/2025Encounter for wellness examination in adult02/25/2025Occult blood positive stool12/25/2024Irritable bowel syndrome with uipuanks16/03/2025Nausea & oekiptmm98/03/2025Weight loss, flggyvdkovtiw68/03/4953Imrpevmlzyvwxcb75/30/2024IDA (iron deficiency anemia) 10/29/2024Rash10/29/2024History of pulmonary wztvgyxu16/24/2024therosclerosis of aorta05/23/2024hronic respiratory failure with yntkosp5705/23/2024 Gastroesophageal reflux disease without qruftppzlko97/24/2024Other fatigue 05/23/2024Vitamin osakxnkdcl59/11/2024Osteopenia after sgfkaouwm75/09/2024 Encounter for screening mammogram for malignant neoplasm of rghqla7002/21/2024 Fjulpidms89/05/2024ody mass index (BMI) 37.0-37.9, adult12/05/2023Other pulmonary embolism without acute cor rpudsekmt57/05/2024lass 2 severe obesity due to excess calories with serious comorbidity in adult10/19/2023OSA (obstructive sleep apnea)10/19/2023Other pojevair11/20/2023Type 2 diabetes mellitus without complication, without long-term current use of insulin 10/19/2023nxiety and jzunlovbaz87/13/2023 Overview (03/28/2025): 12/03/24: GAYLE 7=4, PHQ 9=5 Mixed shbbkktgsmroow29/13/2023Restless leg uljomxrc34/13/2023urrent smoker Overview (07/20/2023): Added secondary to documentation in Social History. Coronary-myocardial mfrijx3012/24/2022 Overview (12/24/2022): Images from the original note were not included. Cath 2014- stable- metoprolol was stopped in 2020- most likely r/t pulmonary disease. Cath 2014- stable- metoprolol was stopped in 2020- most likely r/t pulmonary disease. Assessment & Plan (12/24/2022 9:33 AM EST): No concerning symptoms, overall she is doing well. Benign essential HTN12/24/2022 Assessment & Plan (12/24/2022 9:32 AM EST): Hypertension is well controlled 102/62 Continue lisinopril/HCTZ, lasix Renal function normal Tobacco ostbzrxmuh09/24/2023 Assessment & Plan (12/24/2022 8:26 AM EST): Provider had extended 10 min discussion again with patient about smoking cessation, at this time she doesn't want to take any further medication or that she is ready to quit smoking at this time. WOODY (dyspnea on exertion)12/24/2022 Overview (12/24/2022): female presents to clinic for f/u for HTN, myocardial bridge of LAD, COPD, dsypnea. CUrrently states she is feeling well, denied chest pain, reports typical shortness of breath with exertion- on oxygen 23/05, denied orthopnea. Assessment & Plan (12/24/2022 9:34 AM EST): Stable, f/u with Dr Russo COPD mixed type12/24/20220595Ryiosew55/24/2023hest pain12/24/2022Hypertensive /24/5184Cdgkzhezhtob63/24/2023Tobacco dependence yssbnjkl71/24/2023 Edema of both lower yjslpvbbsaq21/24/2023 Assessment & Plan (12/24/2022 9:34 AM EST): Currently well controlled with lasix Cxcldwl4711/09/2021 Resolved Problems ProblemNoted DateDiagnosed DateResolved DateCentrilobular ehdvbwklc34/24/2023 12/24/2022 Family History Medical HistoryRelationNameCommentsCoronary artery diseaseOtherDeep vein thrombosisOtherPulmonary embolismOtherRelationNameStatusCommentsOther Social History Tobacco UseTypesPacks/DayYears UsedDateSmoking Tobacco: FormerCigarettesQuit: mokeless Tobacco: Never Tobacco Cessation:Counseling Given: Not Answered Alcohol UseStandard Drinks/WeekCommentsNot Currently0 (1 standard drink = 0.6 oz pure alcohol)occasionalUT Safety & EnvironmentAnswerDate RecordedFear of Current or Ex-PartnerNot on file12/22/2023Emotionally AbusedNot on file12/22/2023 Physically AbusedNot on file12/22/2023Sexually AbusedNot on file12/22/2023 Physically or Sexually AbusedNot on file12/22/2023CommentsUnknownSex and Gender InformationValueDate RecordedSex Assigned at BirthNot on fileLegal Sex Cbfqvd8304/28/2022 10:24 PM EDTGender IdentityNot on fileSexual OrientationNot on file Last Filed Vital Signs Vital SignReadingTime TakenCommentsBlood Qxnlmdei731/6805 8:58 AM EDT Exlwn9484 8:58 AM EDTTemperature--Respiratory Rate--Oxygen Wmvfiytzmc56% 03/28/2025 8:58 AM EDTInhaled Oxygen Concentration--Xygtbe643 kg (260 lb) 03/28/2025 8:58 AM VDGDrhtaa630.3 cm (5' 9 )03/28/2025 8:58 AM EDTBody Mass Index38.405 8:58 AM EDT Plan of Treatment Health MaintenanceDue DateLast DoneCommentsCT Yxplxqsaxake52/07/1965Colonoscopy 1964Colorectal Cancer Arhblsmyd98/07/1965Diabetes: Hemoglobin A1C 1965FIT-DNA1964FIT1964FOBT1965 6258Lrllmrtwmxgdp14/07/1965 Diabetes: Retinopathy Wdhfsldym46/07/1975Depression Whmjevxon55/07/1977Diabetes: Urine Protein Qulfnhitv41/07/1984Pneumococcal Vaccine: Pediatrics (0 to 5 Years) and At-Risk Patients (6 to 64 Years) (1 of 2 - PCV)1983Pap Smear1985 Adult Nmotdcp9211/06/1986Cervical Cancer Rjpusrvtj58/07/1995HPV/Ceafox6111/06/1994 Icfxalakz12/07/2005Zoster Vaccines (1 of 2)2014COVID-19 Vaccine (3 - season)5002/13/2021, 01/23/2021Influenza Vaccine (#1)2025 08/13/2024, 07/16/2024, 08/12/2023, Additional history existsHIB VaccinesAged OutNo longer eligible based on patient's age to complete this topicHPV Vaccines Aged OutNo longer eligible based on patient's age to complete this topicIPV VaccinesAged OutNo longer eligible based on patient's age to complete this topic Meningococcal B VaccineAged OutNo longer eligible based on patient's age to complete this topicMeningococcal VaccineAged OutNo longer eligible based on patient's age to complete this topicRotavirus VaccinesAged OutNo longer eligible based on patient's age to complete this topic Insurance Care Teams Team MemberRelationshipSpecialtyStart DateEnd Date Brea Jj MD [address] [place] [address] [facility]12/24/22
--- OUTSIDE RECORDS SUMMARY | 2025-10-29 12:59 | XMS_ITS | CCD ---
Author Organization [facility] Care Team Providers Care Aircraft Electronics Technical Officer Name Role Phone TOSHIA SAM Attending Unavailable TOSHIA SAM Admitting Unavailable SELF, REFERRED Referring Unavailable SELF, REFERRED Primary Care Unavailable AICHHOLZ, PEDIATRIC NEUROPSYCHOLOGIST BREA Primary Care Unavailable SAMSA ., CORRINA Consulting Unavailable SAMSA ., CORRINA Admitting Unavailable SAMSA ., CORRINA Attending Unavailable AICHHOLZ, PEDIATRIC NEUROPSYCHOLOGIST BREA Attending Unavailable AICHHOLZ, PEDIATRIC NEUROPSYCHOLOGIST BREA Consulting Unavailable AICHHOLZ, PEDIATRIC NEUROPSYCHOLOGIST BREA Primary Care Unavailable AICHHOLZ, PEDIATRIC NEUROPSYCHOLOGIST BREA Admitting Unavailable AICHHOLZ, PEDIATRIC NEUROPSYCHOLOGIST BREA Primary Care Unavailable DR MIGUEL MEDEROS Consulting Unavailable SAMSA ., CORRINA Admitting Unavailable SAMSA ., CORRINA Attending Unavailable SAMSA ., CORRINA Consulting Unavailable SAMSA ., CORRINA Attending Unavailable SAMSA ., CORRINA Consulting Unavailable SAMSA ., CORRINA Admitting Unavailable AICHHOLZ, PEDIATRIC NEUROPSYCHOLOGIST BREA Primary Care Unavailable AICHHOLZ, PEDIATRIC NEUROPSYCHOLOGIST BREA Attending Unavailable DR LEANA AYOUB V Consulting Unavailable AICHHOLZ, PEDIATRIC NEUROPSYCHOLOGIST BREA Primary Care Unavailable AICHHOLZ, PEDIATRIC NEUROPSYCHOLOGIST BREA Admitting Unavailable AICHHOLZ, PEDIATRIC NEUROPSYCHOLOGIST BREA Consulting Unavailable PAY ., DR SALAZAR Admitting Unavailable PAY ., DR SALAZAR Attending Unavailable PAY ., DR SALAZAR Consulting Unavailable AICHHOLZ, PEDIATRIC NEUROPSYCHOLOGIST BREA Primary Care Unavailable QUETA .JUAN Consulting Unavailsrinivas e Christopher Justine Consulting Unavailable AICHHOLZ, PEDIATRIC NEUROPSYCHOLOGIST BREA Primary Care Unavailable PAY ., DR SALAZAR Attending Unavailable PAY ., DR SALAZAR Admitting Unavailable GRECHSERGEI .JUAN Consulting Unavailabl e JAVIER KENDY Consulting Unavailable AICHHOLZ, PEDIATRIC NEUROPSYCHOLOGIST BREA Attending Unavailable AICHHOLZ, PEDIATRIC NEUROPSYCHOLOGIST BREA Consulting Unavailable AICHHOLZ, PEDIATRIC NEUROPSYCHOLOGIST BREA Primary Care Unavailable AICHHOLZ, PEDIATRIC NEUROPSYCHOLOGIST BREA Admitting Unavailable AICHHOLZ, BREA J Primary Care Physician Yessica SPENCER Unavailable Aichholz LIGHTING ENGINEER, Brea Unavailable Jose M Light MD Primary Care Provider [phone] Ramses Hair Attending Unavailable Moses Fischer Attending Unavailable Demboske, Mariama Chen Attending Unavailable Demboske, Mariama Chen Attending Unavailable Demboske, Mariama Chen Attending Unavailable Demboske, Mariama Chen Admitting Unavailable Demboske, Mariama Chen Admitting Unavailable Demboske, Mariama Chen Attending Unavailable MD Roby Bob Admitting Unavail able MD Roby Bob Attending Unavail able Aichholz LIGHTING ENGINEER, Brea Unavailable Jose M Light MD Primary Care Provider Aichholdania LIGHTING ENGINEER, Brea Unavailable MARLENE SOTO Attending Unavailable Pricila Jja Connie Attending Provider [phone] Mike BOOTHE, Marshall Admit Provider Mike BOOTHE, Marshall Attending Provider [phone] Brea Jj Primary Care Provider ZECHARIAHZ, BREA Attending Unavailable LADONNA BANG Attending Unavailable AICHHOLZ, BREA Referring Unavailable AICHHOLZ, BREA Attending Unavailable LADONNA BANG A Attending Unavailable AICHHOLZ, BREA Attending Unavailable AICHHOLZ, BREA Attending Unavailable AICHHOLZ, BREA Attending Unavailable AICHHOLZ, BREA Attending Unavailable Aichholz LIGHTING ENGINEER, Brea Unavailable Aichholz LIGHTING ENGINEER, Brea Unavailable Aicbrooklynnz LIGHTING ENGINEER-C, Brea J Primary Care Provider Sheldon Mckee DO Attending Provider Анна LIGHTING ENGINEER-C, Brea Rosales Attending Provider [phone] Jose M Light MD Primary Care Provider Анна COLLADO, Brea Unavailable Valeriy FITTER / WELDER, Tram Unavailable Hailee FITTER / WELDER, Diana Unavailable [phone] Brea Jj Admitting Unavailable Brea Jj Attending Unavailable Brea Jj Admitting Unavailable Brea Jj Primary Care Unavailable Brea Jj Attending Unavailable Brea Jj Primary Care Unavailable Marshall Mckeon Admitting Unavailable Marshall Mckeon Attending Unavailable Wendi Hinojosa Attending Unav Suzanna Faria Attending Unavaila ble Allergies Allergy ClassificationReported Allergen(s)Allergy TypeDate of OnsetReaction(s) Facility (2 sources)No Known Medication Allergies; Translations: [No Known Medication Allergies]Propensity to adverse reactions (disorder)[facility] Medications Current Medications MedicationDrug Class(es)DatesSig (Normalized)Sig (Original)albuterol 0.83 mg/ml inhalation solution (20 sources)beta2-Adrenergic AgonistStart: 21-23-8302vhyg 2.5 mg by inhalation three times dailyAlbuterol Sulfate 2.5 mg /3 mL (0.083 %) solution for nebulization Active 2.5 MG INHALATION Three times daily 90 10 0 July 14, 2021 12:00am Complies with drug therapyStart: 47-32-1127jwaa 1 puff(s) by inhalation every four to six hours as neededAlbuterol Sulfate (Ventolin Hfa) 90 mcg/actuation Hfa Aerosol Inhaler Active 2 PUFF INHALATION EVERY 4-6 HOURS as needed for Shortness Of Breath March 31, 2020 12:00am Complies with drug therapy take 2 puff(s) by mouth every four hours as neededVentolin HFA 108 (90 Base) MCG/ACT inhaler INHALE 2 PUFFS BY MOUTH FOR SHOTNESS OF BREATH EVERY 4 HOURS NEEDED Activealbuterol 0.833 mg/ml / ipratropium bromide 0.167 mg/ml inhalation solution (20 sources)Anticholinergic, beta2-Adrenergic AgonistStart: 55-65-9929yzoz 1 mL by inhalation every eight hours as neededIpratropium-Albuterol 0.5 mg-3 mg(2.5 mg base)/3 mL solution for nebulization Active 3 ML INHALATION Q8H as needed August 24, 2025 12:00am Complies with drug therapyStart: 85-72-9891rfiw 3 mL by inhalation four times dailyalbuterol-ipratropium Inh Debby 3 mL UD 3 mL, Inhalation, QID, 60 EA, Refill(s) 0, Shortness of breath or wheezing Start Date: 06/17/23 Status: Ordered Quantity: 60.0 Unit: EA Repeat number: 1ALPRAZolam 0.25 mg oral tablet (2 sources)Benzodiazepine End: 28-31-3894onlg 1 tablet by mouth once daily as needed for anxietyALPRAZolam (Xanax) 0.25 MG tablet TAKE ONE TABLET BY MOUTH NEEDED FOR ACUTE ANXIETY DAILY 0 12/05/2023 Discontinued (Ineffective)amitriptyline hydrochloride 50 mg oral tablet (2 sources)Tricyclic AntidepressantStart: 10-19-2023 End: 61-51-8669ixfc 1 tablet by mouth at bedtimeamitriptyline (Elavil) 50 MG tablet Indications: Other insomnia Take 1 tablet (50 mg) by mouth at bedtime 30 tablet 1 10/19/2023 12/05/2023 Discontinued (Ineffective)apixaban 5 mg oral tablet (20 sources)Factor Xa InhibitorStart: 63-20-5297xrqu 1 tablet by mouth twice dailyEliquis 5 mg oral tablet 5 mg = 1 tab(s), Oral, BID, # 180 tab(s), Refills(s) 3, Pharmacy: [facility]5, 175, cm, 06/28/23 10:58:00 EDT, Height/Length Dosing, 114.6, kg, 06/28/23 10:58:00 EDT, Weight Dosing Start Date: 06/28/23 Status: OrderedStart: 06-17-2023 End: 62-32-7452mimr 2 tablets by mouth twice daily, then take 1 tablet by mouth twice dailyEliquis 5 MG tablet TAKE TWO TABLETS BY MOUTH TWICE A DAY FOR 6 DAYS, THE TAKE ONE TABLET TWICE A DAY FOR 30 DAYS 06/17/2023 10/29/2024 Discontinued (Therapy completed)aspirin 81 mg delayed release oral tablet (20 sources)Platelet Aggregation Inhibitor, Nonsteroidal Anti-inflammatory Drug Start: 05-09-2024 End: 28-63-9265iofi 1 tablet by mouth once dailyaspirin (Aspirin Low Dose) 81 MG EC tablet Indications: Essential (primary) hypertension , Type 2 diabetes mellitus without complication, without long-term current use of insulin (HCC) Take 1 tablet (81 mg) by mouth Daily 30 tablet 5 05/28/2025 06/27/2025 Active Start: 79-57-3228rnau 1 tablet by mouth once dailyAspirin Low Dose 81 mg oral enteric coated tablet 81 mg = 1 tab(s), Oral, Daily, Refills(s) 0, Blood Thinner Start Date: 06/17/23 Status: Ordered Repeat number: 1Start: 59-61-9102fpfh 1 tablet by mouth once dailyAspirin 81 mg Tablet,Chewable Active 81 MG PO Daily March 31, 2020 12:00am Complies with drug therapytake 1 tablet by mouth in the morningAspirin Low Dose 81 MG EC tablet Take 81 mg by mouth in the morning. 0 Activeatorvastatin 40 mg oral tablet (20 sources)HMG-CoA Reductase InhibitorStart: 62-85-4468KAAREJTZTOEL CALCIUM 40 MG TABLET ATORVASTATIN CALCIUM 40 MG TABLET Start Date: 06/17/23 Status: Ordered Start: 03-31-2020 End: 34-53-3552mcbs 1 tablet by mouth once dailyAtorvastatin 40 mg Tablet Active 40 MG PO Daily March 31, 2020 12:00am Complies with drug therapybenzonatate 100 mg oral capsule (19 sources)Non-narcotic AntitussiveStart: 61-16-8227gmvy 1 capsule by mouth three times daily as needed for coughbenzonatate (Tessalon) 100 MG capsule Take 100 mg by mouth 3 (three) times a day as needed for cough 02/22/2025 Active busPIRone hydrochloride 15 mg oral tablet (20 sources)Start: 05-41-9346ixpv 1 tablet by mouth twice dailyBuspirone 15 mg tablet Active 15 MG PO Twice daily August 24, 2025 12:00am Complies with drug therapyStart: 06-17-2023 End: 20-69-3390gkqi 1 tablet by mouth in the morningbusPIRone (Buspar) 15 MG tablet Indications: Anxiety and depression Take 1 tablet (15 mg) by mouth in the morning and 1 tablet (15 mg) before bedtime. 60 tablet 5 05/28/2025 Active calcium carbonate 1500 mg oral tablet (2 sources)Start: 77-91-0241dvil 1 mg by mouth once daily as neededcalcium (as carbonate) 600 mg oral tablet mg tab(s), Oral, Daily, PRN Indigestion, Refills(s) 0 Start Date: 01/11/25 Status: Ordered Repeat number: 1calcium carbonate 1500 mg / cholecalciferol 200 unt oral tablet (20 sources)Vitamin DStart: 08-24-2025 End: 81-52-3066aifn 1 tablet by mouth twice dailyCalcium Carbonate-Vitamin D3 600 mg-5 mcg (200 unit) tablet Active 1 TAB PO Twice daily 60 5 August 28, 2025 5:22pm Osteopenia after menopause Other specified disorders of bone density and structure, unspecified site Asymptomatic menopausal state Complies with drug therapyStart: 00-54-0911pnre 1 tablet by mouth in the morningCalcium Carb- Cholecalciferol 600-5 MG-MCG tablet Take 1 tablet by mouth in the morning and 1 tabletbefore bedtime. 05/02/2025 ActiveStart: 05-09-2024 End: 65-05-9843azbv 1 tablet by mouth in the morningCalcium Carb-Cholecalciferol 600-5 MG-MCG tablet Indications: Osteopenia after menopause Take 1 tablet by mouth in the morning and 1 tablet before bedtime. 60 tablet 5 03/06/2025 04/05/2025 ActiveStart: 62-95-3871istf 1 tablet by mouth in the morningCalcium Carb-Cholecalciferol 600-5 MG-MCG tablet Take 1 tablet by mouth in the morning and 1 tabletbefore bedtime. 0 06/09/2023 ActiveclonazePAM 0.5 mg oral tablet (20 sources)BenzodiazepineStart: 08-24-2025 End: 87-75-8678znna 1 tablet by mouth once daily at bedtime as needed for anxietyClonazepam 0.5 mg tablet Active 0.5 MG PO Daily at bedtime as needed for anxiety August 28, 2025 5:21pm Anxiety and depression Other insomnia Anxiety disorder, unspecified Depression, unspecified Other insomnia Complies with drug therapyStart: 26-38-0661ekdy 2 tablets by mouth three times daily ClonazePAM 0.5 mg Tab mg tab(s), Oral, TID, Refills(s) 0, Anxiety Start Date: 01/11/25 Status: Ordered Repeat number: 1Start: 05-11-2024 End: 44-81-4993zfbf 1 tablet by mouth at bedtimeclonazePAM (KlonoPIN) 0.5 MG tablet Indications: Anxiety and depression , Restless leg syndrome , Other insomnia TAKE 1 TABLET (0.5 MG) BY MOUTH AT BEDTIME 30 tablet 2 05/10/2025 ActiveStart: 12-05-2023 End: 35-20-5600vpuq 1 tablet by mouth at bedtimeclonazePAM (KlonoPIN) 0.5 MG tablet Indications: Other insomnia , Anxiety and depression (CMS/HCC) , Restless leg syndrome Take 1 tablet (0.5 mg) by mouth at bedtime 30 tablet 1 12/05/2023 01/04/2024ctivecodeine phosphate 2 mg/ml / guaiFENesin 20 mg/ml oral solution (19 sources)Opioid AgonistStart: 24-45-8996ryfxTNFdune-codeine (Robitussin-AC) 100-10 MG/5ML syrup TAKE 2 TEASPOONSFUL (10ML) BY MOUTH EVERY 6HOURS NEEDED 02/22/2025 ActiveDaily Harvinder oral tablet (10 sources)Start: 05-26-3787Gzith Harvinder oral tablet 1 tab(s), Oral, Daily, 30 tab(s), Refill(s) 0 Start Date: 06/17/23 Status: Ordereddicyclomine hydrochloride 20 mg oral tablet (20 sources)AnticholinergicStart: 91-20-8668xmdrpomxmob (Bentyl) 20 MG tablet See Instructions, when needed, Refills(s) 0 01/11/2025 ActiveStart: 12-03-2024 End: 06-72-4829aqoy 1 tablet by mouth every eight hoursdicyclomine (Bentyl) 20 MG tablet Indications: Nausea and vomiting, unspecified vomiting type , Diar adolfo, unspecified type Take 1 tablet (20 mg) by mouth every 8 (eight) hours if needed (abdominal pain or cramps) 90 tablet 1 12/03/2024 01/02/2025 ActiveStart: 09-25-2023 End: 21-44-0881lwcw 1 capsule by mouth four times dailyBentyl 10 mg Cap 10 mg = 1 cap(s), Oral, QID, X 7 day(s), # 28 cap(s), Refills(s) 0, Pharmacy: [facility] 1155, 175, cm, 09/25/23 18:25:00 EST, Height/Length Dosing, 121, kg, 09/25/23 18:25:00 EST, Weight Dosing Start Date: 09/25/23 Stop Date: 10/02/23 Status: OrderedStart: 03-31-2020 End: 86-11-4950ybex 1 tablet by mouth twice daily as needed for painDicyclomine 20 mg Tablet Active 20 MG PO Twice daily as needed for abdominal pain July 08, 2021 12:00am Complies with drug therapydoxepin hydrochloride 10 mg oral capsule (11 sources)Tricyclic Antidepressanttake 1 capsule by mouth at bedtimedoxepin (SINEquan) 10 MG capsule Take 10 mg by mouth at bedtime ActiveDULoxetine 60 mg delayed release oral capsule (20 sources)Serotonin and Norepinephrine Reuptake InhibitorStart: 03-31-2020 End: 01-38-5141nucd 1 capsule by mouth once dailyDuloxetine 60 mg Capsule,Delayed Release(Dr/Ec) Active 60 MG PO Daily March 31, 2020 12:00am Complies with drug therapyferrous sulfate 325 mg oral tablet (20 sources)Start: 22-66-4248ojwi 1 tablet by mouth at mealtimeFeroSul 325 (65 Fe) MG tablet Take 325 mg by mouth in the morning. Take with meals. 01/31/2025 ActiveStart: 10-29-2024 End: 03-55-4729shnh 1 tablet by mouth in the morning, then take 1 tablet by mouth once daily at mealtimeferrous sulfate (FeroSul) 325 (65 Fe) MG tablet Indications: Iron deficiency anemia, unspecified iron deficiency anemia type Take 1 tablet (325 mg) by mouth in the morning. Take with meals. Take 1 tablet by mouth Daily. 30 tablet 5 12/03/2024 01/02/2025 ActiveStart: 01-19-2024 End: 37-02-0536zuyv 1 tablet by mouth once dailyFeroSul 325 (65 Fe) MG tablet Take 1 tablet by mouth Daily 01/19/2024 10/29/2024 Discontinued (Reorder) Ferrousal 325 mg oral tablet (4 sources)Start: 46-35-9759orpb 1 tablet by mouth once dailyFerrousal 325 mg oral tablet 325 mg = 1 tab(s), Oral, Daily, # 30 tab(s), Refills(s) 6, Pharmacy: [facility], 175, cm, 01/16/24 11:22:00 EDT, Height/Length Dosing, 118, kg, 01/16/24 11:22:00 EDT, Weight Dosing Start Date: 01/19/24 Status: Ordered Quantity: 30.0 Unit: tab(s) Repeat number: 7Start: 14-61-0102fnnr 1 tablet by mouth once dailyFerrousal 325 mg oral tablet 325 mg = 1 tab(s), Oral, Daily, # 30 tab(s), Refills(s) 6, Pharmacy: [facility] 1155, 175, cm, 01/16/24 11:22:00 EDT, Height/Length Dosing, 118, kg, 01/16/24 11:22:00 EDT, Weight Dosing Start Date: 01/19/24 Status: Orderedfluocinonide 0.5 mg/ml topical cream (20 sources)CorticosteroidStart: 30-65-2510unqrkgbaelhs (Lidex) 0.05 % cream Indications: Other atopic dermatitis Apply thin layer (1 g) to lower legs, up to twice a day when flared, do not use one the face, groin, or underarms, 30 day ewbiaf51 g 11 12/10/2024 Lwovpz424 actuat fluticasone propionate 0.11 mg/actuat metered dose inhaler (20 sources)CorticosteroidStart: 51-60-4351Asdtqecggat Propionate 110 mcg/actuation HFA aerosol inhaler Active 2 INH INHALATION Twice daily August 28, 2025 9:29am Complies with drug therapyStart: 08-24-2025 End: 05-93-9871Jsoiihpiyin Propionate 110 mcg/actuation HFA aerosol inhaler Discontinued INHALATION August 24, 2025 12:00am August 28, 2025 9:31am Start: 11-05-2024 End: 65-03-7605ugqr 2 spray(s) nasal route once dailyfluticasone (Flonase) 50 MCG/ACT nasal spray Administer 2 sprays into each nostril Daily 11/05/2024 02/25/2025 Discontinued (Ineffective)Start: 43-03-9513vidp 2 puff(s) by inhalation twice dailyFlovent HFA 110 Aerosol = 2 puff(s), Inhalation, BID, # 12 gram, Refills(s) 0 Start Date: 06/17/23 Status: Ordered Quantity: 12.0 Unit: g Repeat number: 1Start: 51-64-5971kxkdbcikvdw Nasal 0.05 mg/inh [place] 2 spray(s), Nasal, Daily, 16 gram, Refill(s) 0, each nostril, Allergy symptoms Start Date: 06/17/23 Status: Ordered Quantity: 16.0 Unit: g Repeat number: 1Start: 06-17-2023 fluticasone Nasal 0.05 mg/inh [place] 2 spray(s), Nasal, Daily, 16 gram, Refill(s) 0, each nostril Start Date: 06/17/23 Status: OrderedStart: 04-13-2023 End: 74-61-6083idss 2 spray(s) nasal route once dailyfluticasone (Flonase) 50 MCG/ACT nasal spray INSTILL 2 SPRAYS IN EACH NOSTRIL ONCE DAILY 04/13/2023 10/29/2024 Discontinued (Therapy completed)Start: 03-31-2020 End: 13-58-7569Rfdvwkxsxmm Propionate 50 mcg/actuation [place],Suspension Discontinued 2 SPRAY INTRANASAL Daily 2019 12:00am July 08, 2021 11:02pmtake 2 puff(s) by inhalation in the morningFlovent HFA 110 MCG/ACT inhaler Inhale 2 puffs in the morning and 2 puffs before bedtime. Llznud186 actuat formoterol fumarate 0.0048 mg/actuat / glycopyrrolate 0.009 mg/actuat metered dose inhaler (20 sources)beta2-Adrenergic AgonistStart: 74-00-7595Ctkxtvyrpdtghb-Formoterol (Bevespi Aerosphere) 9-4.8 mcg HFA aerosol inhaler Active 2 PUFF INHALATION Twice daily August 28, 2025 9:29am Complies with drug therapyStart: 08-24-2025 End: 01-42-6337Ncjxeaqzkhipag-Formoterol (Bevespi Aerosphere) 9-4.8 mcg HFA aerosol inhaler Discontinued INHALATION August 24, 2025 12:00am August 28, 2025 9:31amStart: 52-17-2196tfhf 2 puff(s) by inhalation twice dailyBevespi Aerosphere 9 mcg-4.8 mcg/inh inhalation aerosol 2 puff(s), Inhalation, BID, Refill(s) 11, COPD Start Date: 06/17/23 Status: Ordered Repeat number: 1take 2 puff(s) by inhalation in the morningBevespi Aerosphere 9-4.8 MCG/ACT aerosol Inhale 2 puffs in the morning and 2 puffs before bedtime. Activefurosemide 20 mg oral tablet (20 sources)Loop DiureticStart: 12-57-3491gyhd 1 tablet by mouth once daily Furosemide 20 mg tablet Active 20 MG PO Daily August 24, 2025 12:00am Complies with drug therapyStart: 06-09-2023 End: 39-34-2820uyfm 1 tablet by mouth once dailyfurosemide (Lasix) 20 MG tablet Indications: Edema of both lower extremities Take 1 tablet (20 mg) by mouth Daily 30 tablet 5 05/28/2025 Activegabapentin 300 mg oral capsule (20 sources)Anti-epileptic AgentStart: 18-31-6038metl 1 capsule by mouth twice dailygabapentin 300 mg Cap 300 mg = 1 cap(s), Oral, BID, # 60 cap(s), Refills(s) 0, Neuropathy Start Date: 06/17/23 Status: Ordered Quantity: 60.0 Unit: cap(s) Repeat number: 1Start: 07-08-2021 End: 41-89-0818pbbn 1 capsule by mouth once dailyGabapentin 300 mg Capsule Active 300 MG PO Daily July 08, 2021 12:00am Complies with drug qgdexir43 hr guaiFENesin 600 mg extended release oral tablet (19 sources)Start: 79-78-3878hktw 1 tablet by mouth twice daily as needed for congestionguaiFENesin (Mucinex) 600 MG 12 hr tablet TAKE ONE TABLET BY MOUTH TWICE A DAY NEEDED FOR CONGESTION 02/22/2025 ActivehydroCHLOROthiazide 25 mg / lisinopril 20 mg oral tablet (20 sources)Thiazide Diuretic, Angiotensin Converting Enzyme InhibitorStart: 03-31-2020 End: 65-15-1849wmyw 1 tablet by mouth once dailyLisinopril-Hydrochlorothiazide 20-25 mg Tablet Active 1 TAB PO Daily March 31, 2020 12:00am Complies with drug therapylamoTRIgine 25 mg oral tablet (20 sources)Mood Stabilizer, Anti-epileptic AgentStart: 90-96-6648wylh 2 tablets by mouth at bedtimeLamotrigine 25 mg tablet Active 50 MG PO Bedtime August 24, 2025 12:00am Complies with drug therapyStart: 10-15-2024 End: 04-10-9953udur 2 tablets by mouth at bedtimelamoTRIgine (LaMICtal) 25 MG tablet Indications: Anxiety and depression Take 2 tablets (50 mg) by mouth at bedtime 60 tablet 5 05/28/2025 ActiveStart: 04-10-2024 End: 49-68-6614gobe 2 tablets by mouth at bedtimelamoTRIgine (LaMICtal) 25 MG tablet Indications: Anxiety and depression (CMS/HCC) Take 2 tablets (50 mg) by mouth at bedtime 60 tablet 5 07/24/2024 08/23/2024 ActiveStart: 98-66-5215xlyg 2 tablets by mouth at bedtimelamoTRIgine (LaMICtal) 25 MG tablet Indications: Anxiety and depression (CMS/HCC) Take 2 tablets (50 mg) by mouth at bedtime 60 tablet 5 10/12/2023 ActiveStart: 87-94-7620wwog 1 tablet by mouth twice daily lamotrigine 25 mg Tab 25 mg = 1 tab(s), Oral, BID, # 60 tab(s), Refills(s) 0 Start Date: 06/17/23 Status: Orderedmagnesium oxide 400 mg oral tablet (8 sources)Start: 70-51-4316srhc 1 tablet by mouth twice dailyMagnesium Oxide 400 mg (241.3 mg magnesium) tablet Active 400 MG PO Twice daily 60 1 July 18, 2025 12:00am Hypomagnesemia Hypomagnesemia Complies with drug therapy Start: 05-30-2025 End: 54-20-1834lddw 1 tablet by mouth in the morningmagnesium oxide (Mag-Ox) 400 MG tablet Indications: Hypomagnesemia Take 1 tablet (400 mg) by mouth in the morning and 1 tablet (400 mg) before bedtime. 60 tablet 1 06/05/2025 07/05/2025 Dqhgye04 hr metoprolol succinate 25 mg extended release oral tablet (17 sources)beta-Adrenergic BlockerStart: 22-92-2295jpoc 1 tablet by mouth every twenty-four hoursMetoprolol Succinate 25 mg tablet extended release 24 hr Active MG PO August 24, 2025 12:00am Complies with drug therapyStart: 03-31-2020 End: 73-27-9370puei 1 tablet by mouth twice dailyMetoprolol Tartrate 50 mg Tablet Discontinued 50 MG PO Twice daily March 31, 2020 12:00am 2020 11:01pmtake 1 tablet by mouth once dailymetoprolol succinate XL (Toprol-XL) 25 MG 24 hr tablet Take 25 mg by mouth Daily ActiveMultiple Vitamin (Multivitamin) tablet (20 sources)Start: 90-21-3151hvnu 1 tablet by mouth once dailyMultiple Vitamin (Multivitamin) tablet Take 1 tablet by mouth Daily 05/02/2025 ActiveStart: 04-04-2025 End: 90-00-5236ovxr 1 tablet by mouth once dailyMultiple Vitamin (Multivitamin) tablet Indications: Vitamin deficiency Take 1 tablet by mouth Daily30 tablet 5 04/04/2025 05/04/2025 ActiveStart: 12-05-2024 End: 31-87-2416Pfesnrpg Vitamin (Multivitamin) tablet 12/05/2024 04/04/2025 DiscontinuedStart: 28-21-4571Jlznpaxr Vitamin (Multivitamin) tablet 12/05/2024 ActiveStart: 10-04-2024 End: 94-42-7451blud 1 tablet by mouth once dailyMultiple Vitamin (Multivitamin) tablet Indications: Gastroesophageal reflux disease without esophagitis Take 1 tablet by mouth Daily 30 tablet 5 10/04/2024 11/03/2024 ActiveStart: 05-09-2024 End: 57-74-2584sixl 1 tablet by mouth once dailyMultiple Vitamin (Multivitamin) tablet Take 1 tablet by mouth Daily 05/09/2024 10/04/2024 DiscontinuedStart: 28-95-5384twyz 1 tablet by mouth once dailyMultiple Vitamin (Multivitamin) tablet Take 1 tablet by mouth Daily 05/09/2024 ActiveMultivitamin Tablet (4 sources)Start: 00-50-3957hyds 1 tablet by mouth once dailyMultivitamin Tablet Active 1 TAB PO Daily March 31, 2020 12:00am Complies with drug therapy ondansetron 4 mg disintegrating oral tablet (20 sources)Serotonin-3 Receptor AntagonistStart: 12-21-2023 End: 36-94-0599ksxo 1 tablet by mouth every eight hours for nauseaondansetron ODT (Zofran-ODT) 4 MG disintegrating tablet Indications: Vomiting and diarrhea Take 1 tablet (4 mg) by mouth every 8 (eight) hours if needed for nausea or vomiting for up to 10 days 30 tablet 05/28/2025 06/07/2025 ActiveStart: 03-31-2020 End: 51-94-6510kbhy 1 tablet by mouth every eight hours as needed for nausea Ondansetron 4 mg Tablet,Disintegrating Discontinued 4 MG PO Q8H as needed for Nausea March 31, 202012:00am July 08, 2021 11:01pmpantoprazole 40 mg delayed release oral tablet (20 sources)Proton Pump InhibitorStart: 43-24-2964uoaz 1 tablet by mouth once dailyPantoprazole 40 mg tablet,delayed release (DR/EC) Active 40 MG PO daily August 24, 2025 12:00am Complies with drug therapyStart: 07-06-2024 End: 48-61-7486ewyq 1 tablet by mouth before mealtimepantoprazole (ProtoNix) 40 MG EC tablet Indications: Gastroesophageal reflux disease without esophagitis Take 1 tablet (40 mg) by mouth in the morning. Take before meals. Do not crush, chew, or split. 30 tablet 5 05/28/2025 ActiveStart: 03-31-2020 End: 07-13-1823tobp 1 tablet by mouth once dailyPantoprazole 40 mg Tablet,Delayed Release (Dr/Ec) Discontinued 40 MG PO Daily March 31, 2020 12:00am July 08, 2021 11:01pmpioglitazone 15 mg oral tablet (20 sources)Peroxisome Proliferator Receptor alpha Agonist, Peroxisome Proliferator Receptor gamma Agonist, ThiazolidinedioneStart: 07-08-2021 End: 85-33-3502sfjh 1 tablet by mouth once dailyPioglitazone 15 mg Tablet Active 15 MG PO Daily July 08, 2021 12:00am Complies with drug therapypotassium chloride 10 meq extended release oral tablet (20 sources)Start: 05-02-2025 End: 93-04-5221sbjs 1 tablet by mouth once dailypotassium chloride CR (Klor-Con) 10 MEQ ER tablet Indications: Edema of both lower extremities Take1 tablet (10 mEq) by mouth Daily 30 tablet 5 05/28/2025 06/27/2025 ActiveStart: 02-06-2025 End: 40-38-9503omjp 1 tablet by mouth once dailypotassium chloride CR (Klor-Con) 10 MEQ ER tablet Indications: Edema of both lower extremities Take1 tablet (10 mEq) by mouth Daily 30 tablet 5 02/25/2025 03/27/2025 ActiveStart: 02-06-2025 End: 99-79-7049sijl 1 tablet by mouth once dailypotassium chloride CR (Klor-Con M10) 10 MEQ ER tablet Indications: Edema of both lower extremities Take 1 tablet (10 mEq) by mouth Daily Do not crush or chew. 30 tablet 2 02/06/2025 02/25/2025 Discontinued (Ineffective)Start: 12-03-2024 End: 48-94-5706xkvg 1 tablet by mouth once daily in the morningpotassium chloride CR (Klor-Con) 10 MEQ ER tablet Indications: Edema of both lower extremities Take1 tablet (10 mEq) by mouth Daily Take 10 mEq by mouth in the morning. 30 tablet 5 12/03/2024 01/02/2025 ActiveStart: 02-87-2783rffi 1 tablet by mouth twice dailyPotassium Chloride (Irb-Zpum-Dml 10) 10 mEq oral tablet, extended release 10 mEq = 1 tab(s), Oral, BID, Refills(s) 0, Prophylaxis Start Date: 06/17/23 Status: Ordered Repeat number: 1Start: 43-27-5341Tskujaqcg Chloride (Jwm-Jfih-Qip 10) 10 mEq oral tablet, extended release Refills(s) 0 Start Date: 06/17/23 Status: Orderedpramipexole dihydrochloride 0.5 mg oral tablet (20 sources)Nonergot Dopamine AgonistStart: 61-56-9371lrkp 1 tablet by mouth once daily at bedtimePramipexole 0.5 mg tablet Active 0.5 MG PO Daily at bedtime August 24, 2025 12:00am Complies with drug therapyStart: 06-17-2023 End: 20-08-8378osph 1 tablet by mouth at bedtimepramipexole (Mirapex) 0.5 MG tablet Indications: Restless leg syndrome Take 1 tablet (0.5 mg) by mouth at bedtime 30 tablet 5 05/28/2025 ActiveStart: 03-31-2020 End: 73-84-4477bszu 2 tablets by mouth once daily at bedtimePramipexole 0.25 mg Tablet Discontinued 0.5 MG PO Daily at bedtime March 31, 2020 12:00am August 242024 1:20pmpredniSONE 20 mg oral tablet (20 sources)Start: 87-77-4858zglneeHSCC (Deltasone) 20 MG tablet TAKE THREE TABLETS BY MOUTH DAILY FOR 3 DAYS,THEN 2 TABS FOR 3 DAYS, THEN 1 TAB FOR 3 DAYS. 02/19/2025 ActiveStart: 07-14-2021 End: 55-46-6964Tnaaewrlza 10 mg tablet Discontinued 10 MG PO Daily 7 July 14, 2021 12:00am May 28, 2025 11:53pm Take 2 tabs x 2 days then 1 tab x 3 days then stop.rifAXIMin 550 mg oral tablet (10 sources)Rifamycin AntibacterialStart: 12-26-2024 End: 55-12-2247zqwPFXQdi (Xifaxan) 550 MG tablet Indications: Irritable bowel syndrome with diarrhea Three times daily for 14 days 42 tablet 12/26/2024 02/25/2025 Discontinued (Therapy completed)theophylline 300 mg extended release oral tablet (20 sources)MethylxanthineStart: 19-25-9739wftk 1 tablet by mouth every twelve hoursTheophylline 300 mg tablet extended release 12 hr Active MG PO August 24, 2025 12:00am Complies with drug therapytraZODone hydrochloride 50 mg oral tablet (14 sources)Serotonin Reuptake InhibitorStart: 43-93-5004dvkn 1 tablet by mouth once daily at bedtimetraZODONE 50 mg Tab 50 mg = 1 tab(s), Oral, Once a day (at bedtime), # 30 tab(s), Refills(s) 0 Start Date: 06/17/23 Status: OrderedStart: 07-08-2021 End: 89-74-4182qtwe 2 tablets by mouth once daily at bedtimeTrazodone 50 mg Tablet Discontinued 100 MG PO Daily at bedtime July 08, 2021 12:00am May 28, 2025 11:54pmtriamcinolone acetonide 1 mg/ml topical cream (2 sources)CorticosteroidStart: 10-29-2024 End: 46-74-5480osinnvrxwrqnd (Kenalog) 0.1 % cream Indications: Rash Apply topically 2 (two) times a day for 14 days 60 g 10/29/2024 11/12/2024 Active Ventolin HFA 90 mcg/inh Aerosol-Adpt (12 sources)Start: 60-34-0123ibfk 1 puff(s) by inhalation four times daily for wheezingVentolin HFA 90 mcg/inh Aerosol-Adpt 1 puff(s), Inhalation, QID for wheezing, 18 gram, Refill(s) 0,Shortness of breath or wheezing Start Date: 06/17/23 Status: Ordered Quantity: 18.0 Unit: g Repeat number: 1Start: 06-17-2023 take 1 puff(s) by inhalation four times daily for wheezingVentolin HFA 90 mcg/inh Aerosol-Adpt 1 puff(s), Inhalation, QID for wheezing, 18 gram, Refill(s) 0 Start Date: 06/17/23 Status: OrderedZofran ODT 4 mg Tab-Dis (8 sources)Start: 23-41-2535vyft 1 tablet by mouth every eight hoursZofran ODT 4 mg Tab-Dis 4 mg = 1 tab(s), Oral, q8hr, # 12 tab(s), Refills(s) 0, Pharmacy: [facility], 175, cm, 09/25/23 18:25:00 EST, Height/Length Dosing, 121, kg, 09/25/23 18:25:00 EST, Weight Dosing Start Date: 09/25/23 Status: Ordered Quantity: 12.0 Unit: tab(s) Repeat number: 1Start: 17-08-1398ebwf 1 tablet by mouth every eight hoursZofran ODT 4 mg Tab-Dis 4 mg = 1 tab(s), Oral, q8hr, # 12 tab(s), Refills(s) 0, Pharmacy: [facility], 175, cm, 09/25/23 18:25:00 EST, Height/Length Dosing, 121, kg, 09/25/23 18:25:00 EST, Weight Dosing Start Date: 09/25/23 Status: Ordered Completed/Discontinued Medications MedicationDrug Class(es)DatesSig (Normalized)Sig (Original)Budesonide-Formoterol (4 sources)Corticosteroid, beta2-Adrenergic AgonistStart: 03-31-2020 End: 65-73-4413nzdo 1 puff(s) by inhalation once daily as neededBudesonide- Formoterol 160-4.5 mcg/actuation Hfa Aerosol Inhaler Discontinued 2 PUFF INHALATION Daily as needed for Shortness Of Breath March 31, 2020 12:00am August 24, 2025 1:13pmStart: 27-02-8875qqym 1 puff(s) by inhalation once daily as neededBudesonide-Formoterol 160-4.5 mcg/actuation Hfa Aerosol Inhaler Active 2 PUFF INHALATION Daily as needed for Shortness Of Breath March 31, 2020 12:00am Complies with drug therapycelecoxib 200 mg oral capsule (20 sources)Nonsteroidal Anti-inflammatory DrugStart: 03-31-2020 End: 27-64-4006uggz 1 capsule by mouth once daily as needed for painCelecoxib 200 mg capsule Discontinued 200 MG PO Daily as needed for pain July 08, 2025 7:15pm August 28, 2025 5:23pm Osteoarthritis Unspecified osteoarthritis, unspecified sitehyoscyamine sulfate 0.125 mg sublingual tablet (10 sources)Start: 12-21-2023 End: 38-37-7383leig 1 tablet by mouth every six hours as neededhyoscyamine (Levsin) 0.125 MG SL tablet Take 0.125 mg by mouth every 6 (six) hours if needed for cramping 12/21/2023 10/29/2024 Discontinued (Therapy completed)Insulin Lispro (1 source)Insulin AnalogStart: 06-17-2023 End: 97-33-4079Iefsagg Lispro Sliding Scale 0-10 Unit(s), Injection-Insulin, SubCutaneous, Start date 06/17/23 7:30:00 EDT Start Date: 06/17/23 Stop Date: 06/17/23 Status: CompletedlevoFLOXacin 750 mg oral tablet (4 sources)Quinolone AntimicrobialStart: 07-14-2021 End: 88-87-6062xnhv 1 tablet by mouth once dailyLevofloxacin 750 mg tablet Discontinued 750 MG PO Daily 2 July 14, 2021 12:00am August 24, 2025 1:17pmlisinopril 20 mg oral tablet (1 source)Angiotensin Converting Enzyme InhibitorStart: 06-17-2023 End: 29-19-7587urbkkixlly 20 mg Tab 20 mg = 1 tab(s), Tab, Oral, Start date 06/17/23 9:00:00 EDT, 06/17/23 7:57:00EDT Start Date: 06/17/23 Stop Date: 06/17/23 Status: Completedmelatonin 3 mg oral tablet (4 sources)Start: 03-31-2020 End: 35-86-0700ndxt 1 tablet by mouth at bedtime as neededMelatonin 3 mg Tablet Discontinued 3 MG PO Bedtime as needed for Insomnia March 31, 2020 12:00am [facility]:01pmmetFORMIN hydrochloride 500 mg oral tablet (4 sources)BiguanideStart: 03-31-2020 End: 12-08-1669orfn 2 tablets by mouth once daily in the morningMetformin 500 mg Tablet Discontinued 500 MG PO Twice daily March 31, 2020 12:00am July 08, 2021 11:02pm 1000mg QAM 500mg QPMrOPINIRole 1 mg oral tablet (4 sources)Nonergot Dopamine AgonistStart: 03-31-2020 End: 99-69-2075xcvk 1 tablet by mouth once daily at bedtimeRopinirole 1 mg Tablet Discontinued 1 MG PO Daily at bedtime March 31, 2020 12:00am July 08, 2021 11:01pmsucralfate 1000 mg oral tablet (4 sources)Aluminum ComplexStart: 07-08-2021 End: 89-43-3955rbci 1 tablet by mouth three times dailySucralfate 1 gram Tablet Discontinued 1 GM PO Three times daily July 08, 2021 12:00am 2024 1:21pm Problems Active Problems Problem ClassificationProblemDateDocumented DateEpisodic/ChronicAbdominal pain (20 sources)Epigastric pain; Translations: [Unspecified abdominal pain]Onset: 03-26-2022 Resolved: 57-25-6310VxblmcdeTzeoouw on above:Problem List clean-up per request of Phys. EHR CmteAllergic reactions (4 sources)Atopic dermatitis; Translations: [Other atopic dermatitis]12-10-2024 ChronicAnxiety disorders (20 sources)Generalized anxiety disorder; Translations: [Mixed anxiety and depressive disorder]Onset: 460815-77-8748CdejtdaBawcort tract disease (1 source)Cholelithiasis without obstruction; Translations: [Calculus of gallbladder without cholecystitis without obstruction]Onset: 77-14-9956Lghuryoh Cardiac and circulatory congenital anomalies (2 sources)Malformation of coronary vessels; Translations: [Malformation of coronary vessels]Onset: 21-98-9593TkkgyzaOheebuy dysrhythmias (1 source)Tachyarrhythmia ; Translations: [Tachycardia, unspecified]Onset: 92-60-5312EbvwousnJbbyqeg obstructive pulmonary disease and bronchiectasis (20 sources)Chronic obstructive pulmonary disease with (acute) exacerbation; Translations: [Chronic obstructivepulmonary disease, unspecified]Onset: 12-66-5864LqtrxkcZrhcoet on above:Problem List clean-up per request of Phys. EHR CmteDeficiency and other anemia (20 sources)Iron deficiency anemia; Translations: [Iron deficiency anemia, unspecified]Onset: 71-59-8965HkxdqohxLjqlomfu mellitus with complications (4 sources)Type 2 diabetes mellitus with other specified complication; Translations: [TYPE 2 DM W/OTHER SPEC COMPLICATION]Onset: 43-22-6981Aicmhzy Diabetes mellitus without complication (20 sources)Type 2 diabetes mellitus without complication; Translations: [Type 2 diabetes mellitus without complications]Onset: 01-33-0782YujkgyeErnudjn on above:Problem List clean-up per request of Phys. EHR CmteDisorders of lipid metabolism (20 sources)Mixed hyperlipidemia; Translations: [Hyperlipidemia, unspecified] Onset: 252598-47-9846JuprmyqOvobgufxfq disorders (20 sources)Gastroesophageal reflux disease without esophagitis; Translations: [Gastro-esophageal reflux disease without esophagitis]Onset: 05-23-2024 67-64-3768HowfyrkUhgxjohio hypertension (20 sources)Essential (primary) hypertension; Translations: [Essential hypertension]Onset: 80-86-0531SwuepniRsen disorders (1 source)Depressive disorder; Translations: [Depression, unspecified]Onset: 82-72-8055ZcptptnRhay disorders (1 source)Mood disorders; Translations: [Depression, unspecified]Onset: 36-28-2646Xynqrqgiqyv chest pain (2 sources)Chest pain; Translations: [Chest pain, unspecified]Onset: 06-16-2023 EpisodicNutritional deficiencies (20 sources)Vitamin deficiency; Translations: [Vitamin deficiency, unspecified] Onset: 107279-84-4742LriamnlwHwomppepxpsgws (20 sources)Arthritis; Translations: [Unspecified osteoarthritis, unspecified site]Onset: 526624-89-0959GnzlxjaRjgit aftercare (1 source)group home (current) use of aspirin; 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]Onset: 97-53-5727TedmzxjwLzobb aftercare (2 sources)Other snf (current) drug therapy; Translations: [OTH RESIDENTIAL CURRENT DRUG THERAPY]Onset: 96-66-0352MwxthoanMlikn aftercare (1 source)Long-term current use of drug therapy; Translations: [Other snf (current) drug therapy]Onset: 44-22-9216GnglceypFhnne aftercare (2 sources)Drug therapy finding; Translations: [Other snf (current) drug therapy]42-02-4503MybnkikgVzeeo bone disease and musculoskeletal deformities (20 sources)Postmenopausal osteopenia; Translations: [Other specified disorders of bone density and structure, unspecified site]Onset: 461795-32-8754 EpisodicOther gastrointestinal disorders (20 sources)Irritable bowel syndrome with diarrhea; Translations: [Irritable bowel syndrome with diarrhea]Onset: 077739-21-6325OfsgtmzYifzn gastrointestinal disorders (19 sources)Diarrhea; Translations: [Diarrhea, unspecified]Onset: 12-03-2024 27-18-3987AfjgxappBdgodxr on above:Problem List clean-up per request of Phys. EHR CmteOther gastrointestinal disorders (20 sources)Occult blood in stools; Translations: [Other fecal abnormalities] Onset: 816191-23-1275SvtnrazlQfvdy hereditary and degenerative nervous system conditions (1 source)Restless legs syndrome; Translations: [RESTLESS LEGS SYNDROME]Onset: 08-98-2756ZxhxqmoJimwn hereditary and degenerative nervous system conditions (20 sources)Restless legs; Translations: [Restless legs syndrome]Onset: 885815-91-5727ZjllsauHziav inflammatory condition of skin (2 sources)Lichen simplex chronicus; Translations: [Lichen simplex chronicus] 54-97-7542QcoiuhomAnesf lower respiratory disease (4 sources)Shortness of breath; Translations: [SHORTNESS OF BREATH]Onset: 57-21-8930StsaejsrPzlcp lower respiratory disease (20 sources)Dyspnea on exertion; Translations: [Other forms of dyspnea]Onset: 478572-47-3737OslhubzoHqxpk lower respiratory disease (2 sources)Other forms of dyspnea; Translations: [Other forms of dyspnea]Onset: 60-57-4421CwrkhwfjPbfri lower respiratory disease (4 sources)Respiratory distress; Translations: [Acute respiratory distress] 67-26-1741KwbkegzgDkukyjj on above:Problem List clean-up per request of Phys. EHR CmteOther lower respiratory disease (4 sources)Hypoxia; Translations: [Hypoxemia]66-37-8712WlaujuprAurpxpq on above: Problem List clean-up per request of Phys. EHR CmteOther nutritional; endocrine; and metabolic disorders (1 source)Obesity, unspecified; Translations: [OBESITY UNSPECIFIED]Onset: 68-23-5950EzbghxzOppca nutritional; endocrine; and metabolic disorders (1 source)Body mass index (BMI) 40.0-44.9, adult; Translations: [BODY MASS INDEX BMI 40.0-44.9 ADULT]Onset: 94-80-2962SkwyikjCakwt nutritional; endocrine; and metabolic disorders (1 source)Obesity; Translations: [Obesity, unspecified]Onset: 69-36-6616Pkwjxdm Other nutritional; endocrine; and metabolic disorders (20 sources)Body mass index 30+ - obesity; Translations: [Body mass index (BMI) 37.0-37.9, adult]Onset: 173019-08-3637XwxxfdrPfbvg nutritional; endocrine; and metabolic disorders (20 sources)Severe obesity; Translations: [Morbid (severe) obesity due to excess calories]Onset: 993911-95-5179BmuhtieCviwl nutritional; endocrine; and metabolic disorders (12 sources)Hypomagnesemia; Translations: [Hypomagnesemia]Onset: 05-30-2025 47-43-4831PexcdhcBxbgm nutritional; endocrine; and metabolic disorders (2 sources)Weight decreased; Translations: [Abnormal weight loss]08-22-2025 EpisodicOther screening for suspected conditions (not mental disorders or infectious disease) (20 sources)Encounter for screening mammogram for malignant neoplasm of breast; Translations: [Patient encounter status]Onset: 70-04-5299OkabueqaRyvrhnrkiu and visceral atherosclerosis (20 sources)Atherosclerosis of aorta; Translations: [Atherosclerosis of aorta] Onset: 122371-53-2133HnytykbZeulpbpwd heart disease (20 sources)Other pulmonary embolism without acute cor pulmonale; Translations: [Pulmonary embolism]Onset: 43-27-9098SjeangoiJkjmefar codes; unclassified (20 sources)Insomnia; Translations: [Other insomnia]Onset: ChronicResidual codes; unclassified (20 sources)Obstructive sleep apnea syndrome; Translations: [Obstructive sleep apnea (adult) (pediatric)]Onset: 228377-46-9938CssueqgOoryebb on above: Problem List clean-up per request of Phys. EHR CmteResidual codes; unclassified (20 sources)Bilateral lower limb edema; Translations: [Localized edema]Onset: 979683-73-3825RirdnbvmPbafxrib codes; unclassified (4 sources)Tobacco user; Translations: [Tobacco use]33-23-0097YqljczckMbrighq on above:Problem List clean-up per request of Phys. EHR CmteRespiratory failure; insufficiency; arrest (adult) (20 sources)Dependence on supplemental oxygen; Translations: [Chronic respiratory failure with hypoxia]Onset: 06-01-1334DkcvkjoEoeziqi on above: Problem List clean-up per request of Phys. EHR CmteScreening and history of mental health and substance abuse codes (5 sources)Personal history of nicotine dependence; Translations: [PERSONAL HISTORY OF NICOTINE DEPEND]Onset: 94-90-3644RgxawlnxHedqmhteb-related disorders (20 sources)Nicotine dependence, cigarettes, uncomplicated; Translations: [Nicotine dependence]Onset: 10-26-7107JlwrvytZbpsvqz on above:Added secondary to documentation in Social History. Past or Other Problems Problem ClassificationProblemDateDocumented DateEpisodic/ChronicAcute and unspecified renal failure (14 sources)Acute renal failure syndrome; Translations: [Acute kidney failure, unspecified]Onset: 561866-37-8729JwndxoqcDsdzfxx and fatigue (20 sources)Fatigue; Translations: [Other fatigue]Onset: 904007-74-5905 EpisodicNausea and vomiting (20 sources)Nausea and vomiting; Translations: [Nausea with vomiting, unspecified]Onset: 02-89-4682InrcgvkfCphrhqx on above:Problem List clean-up per request of Phys. EHR CmteNoninfectious gastroenteritis (20 sources)Gastroenteritis; Translations: [Noninfective gastroenteritis and colitis, unspecified]Onset: 566894-80-7563WhwbattvOrzvsydhgrpq breast conditions (20 sources)Mastodynia; Translations: [Mastodynia]Onset: 02-21-2024 Resolved: 615026-96-8796XcluyfneUkszq aftercare (4 sources)Encounter for therapeutic drug level monitoring; Translations: [ENC THERAPEUTC DRUG LEVL MONITORING]Onset: 74-10-8137FwdgtnmaUswsk gastrointestinal disorders (1 source)Diarrhea, unspecified; Translations: [Diarrhea, unspecified]Onset: 77-06-1647JwrpwxreKwlsf nutritional; endocrine; and metabolic disorders (20 sources)Obesity caused by energy imbalance; Translations: [Morbid (severe) obesity due to excess calories]Onset: 05-23-2024 Resolved: 778213-65-0685YwbmajiPukkm nutritional; endocrine; and metabolic disorders (20 sources)Unintentional weight loss; Translations: [Abnormal weight loss] Onset: 368161-58-0873JwbdzpdiOsznp skin disorders (20 sources)Eruption; Translations: [Rash and other nonspecific skin eruption] Onset: 993152-46-4752FdmowcfdLadar upper respiratory infections (20 sources)Acute maxillary sinusitis; Translations: [Acute maxillary sinusitis, unspecified]Onset: 01-10-2024 Resolved: 054144-30-2471Cxbngjrj Results Test NameValueInterpretationReference RangeFacilityED Clinical Summaryon [id number] Clinical SummaryED Clinical Summary [place] [id number] ED Clinical Summary Person Information Name: SIS MOORE Hilary/[facility] Age: 59 Years : 1965 Sex: Female Language: Zimbabwean PCP: BREA JJ CNP Marital Status: Visit Id: Visit Reason: Medical problem - minor; Hip pain-swelling; HIP PAIN - RT SIDE Speciality: Acuity: 4 Enc Type: Emergency Med Service: Emergency Arrival: 09/09/2025 22:32:39 Discharge: 09/10/2025 00:38:49 LOS: 000 02:06 Checkin: 09/09/2025 22:32:39 Checkout: 09/10/2025 00:38:49 Dispo Type: Home (Routine DC) EVENTS: Event Name Event Status Request Date/Time Start Date/Time Complete Date/Time Arrive Complete 09/09/2025 22:32:39 09/09/2025 22:32:39 09/09/2025 22:32:39 Document Home Meds Request 09/09/2025 22:32:39 Triage Complete 09/09/2025 22:32:39 09/09/2025 22:37:08 09/09/2025 22:37:08 Bed Assign Complete 09/09/2025 22:32:39 09/09/2025 22:32:39 09/09/2025 22:32:39 Dr Exam Complete 09/09/2025 22:32:39 09/09/2025 22:33:28 09/09/2025 22:33:28 RN Exam Complete 09/09/2025 22:32:39 09/09/2025 23:27:12 09/09/2025 23:27:12 No Visitors Cancel 09/09/2025 22:32:45 09/09/2025 22:33:09 Registration Complete 09/09/2025 22:33:28 09/09/2025 23:11:13 09/09/2025 23:11:13 X-Ray Complete 09/09/2025 22:37:35 09/09/2025 23:09:42 09/09/2025 23:34:30 Meds Admin Complete 09/09/2025 22:37:35 09/09/2025 23:18:51 Reg Complete Request 09/09/2025 23:11:13 Reg Bed Request Complete 09/09/2025 23:11:13 09/09/2025 23:11:13 09/09/2025 23:11:13 Wet Read Request 09/09/2025 23:34:30 Discharge Complete 09/10/2025 00:08:53 09/10/2025 00:38:53 09/10/2025 00:38:53 Transfer Complete 09/10/2025 00:38:53 09/10/2025 00:38:53 09/10/2025 00:38:53 ADDRESS: [address] [place] [id number] [facility] DOC NOTES: MEDICAL INFORMATION: Prescriptions Given: [facility], [address] [place], [place] [id number], [phone] acetaminophen-hydrocodone ([place] 325 mg-5 mg oral tablet) 1 Tablets By Mouth every 6 hours as needed for pain. Refills: 0. cyclobenzaprine (cyclobenzaprine 5 mg Tab) 1 Tablets By Mouth 3 times a day for 7 Days. Refills: 0. ibuprofen (ibuprofen 600 mg Tab) 1 Tablets By Mouth every 8 hours. Refills: 0. predniSONE (predniSONE 10 mg Tab) 1 Dose Separtor By Mouth As Directed. Take 4 tabs by mouth daily x3 days, 3 tabs daily x3 days, 2 tabs daily x3 days, then 1 tab daily x3 days.. Refills: 0. Medications to Continue with No Changes Other Medications albuterol (Ventolin HFA 90 mcg/inh Aerosol-Adpt) 1 Puffs Inhalation 4 times a day as needed for wheezing. albuterol-ipratropium (albuterol-ipratropium Inh [place] 3 mL UD) 3 Milliliter Inhalation 4 times a day. aspirin (Aspirin Low Dose 81 mg oral enteric coated tablet) 1 Tablets By Mouth every day. atorvastatin (atorvastatin 40 mg Tab) By Mouth every day. busPIRone (busPIRone 15 mg Tab) 1 Tablets By Mouth 3 times a day. calcium carbonate (calcium (as carbonate) 600 mg oral tablet) By Mouth every day as needed Indigestion. celecoxib (CeleBREX 200 mg Cap) By Mouth every day. clonazepam (ClonazePAM 0.5 mg Tab) By Mouth 3 times a day. dicyclomine (dicyclomine 20 mg Tab) when needed. duloxetine (duloxetine 60 mg oral delayed release capsule) 1 Capsules By Mouth every day. ferrous sulfate ([place] 325 mg oral tablet) 1 Tablets By Mouth every day. Refills: 6. fluticasone (Flovent HFA 110 Aerosol) 2 Puffs Inhalation 2 times a day. fluticasone nasal (fluticasone Nasal 0.05 mg/inh [place]) 2 Sprays Nasal Inhalation every day. each nostril. formoterol-glycopyrrolate (Bevespi Aerosphere 9 mcg-4.8 mcg/inh inhalation aerosol) 2 Puffs Inhalation 2 times a day. furosemide (furosemide 20 mg Tab) 1 Tablets By Mouth every day. gabapentin (gabapentin 300 mg Cap) 1 Capsules By Mouth 2 times a day. hydrochlorothiazide-lisinopril (hydrochlorothiazide-lisinopril 25 mg-20 mg Tab) 1 Tablets By Mouth every day. ondansetron (Zofran ODT 4 mg Tab-Dis) 1 Tablets By Mouth every 8 hours. Refills: 0. pantoprazole (Pantoprazole [address] Tab) 1 Tablets By Mouth every day. pioglitazone (pioglitazone 15 mg Tab) 1 Tablets By Mouth every day. potassium chloride (Potassium Chloride (Oso-Mbiz-Aje 10) 10 mEq oral tablet, extended release) 1 Tablets By Mouth 2 times a day. pramipexole (pramipexole 0.5 mg oral tablet) 1 Tablets By Mouth 3 times a day. theophylline (theophylline 300 mg ER Tab) 1 Tablets By Mouth every 12 hours. PATIENT EDUCATION INFORMATION: Instructions: Hip Pain Follow up: With: Address: When: ANGELYRASHMI NUNEZ, BREA Connie [address] [place], [place] [id number] In 3 days 09/13/2025 DIAGNOSIS: 1:Right hip painNormalFisher [facility]ED [facility]icianon [facility]-10-2025 ED Note-PhysicianED Note-Physician Basic Information Time Seen: Wendi Hinojosa D.O. 09/09/2025 22:33 Chief Complaint Pt to ED via [facility] for c/o R hip pain starting tonight. Pt denies any injury or fall. MSP intact. Hx of COPD, basline 3L as needed. History of Present Illness The patient is a 59-year-old female with a known past medical history of a pulmonary embolism, COPD, and tobacco abuse presents to the emergency department secondary to atraumatic right hip and buttock pain. Patient states that she has been in her usual state of health. She got up to walk. She had instant pain in her right hip and posterior buttock area. She had to sit back down and was unable towalk because the pain was so excruciating. There was no trauma. She does not have any midline back tenderness. There is no right flank tenderness. The patient does not have any saddle anesthesia. No numbness or weakness in the leg. Patient does not have any history of artificial joint in that leg. No recent fever or chills. Pain is a 10 out of 10. Worse to try to stand and bear weight. Relieved by nothing. Review of Systems 10 systems were reviewed. Unless indicated in a detailed history of present illness, all other systems reviewed, unremarkable, or noncontributory. Physical Exam Vitals & Measurements T: 36.7 ???C(Oral) HR: 93(Monitored) RR: 18 BP: 150/59 SpO2: 97% HT: 175 cm WT: 116.5 kg BMI: 38.04 Introduced myself to the patient. My hands were washed with hospital supplied hand research librarian and then nonlatex gloves were applied. I obtained permission from the patient to examine them. Patient is only able to lay in the left lateral recumbent position to be evaluated. She is not ableto lay on her back. General: Patient is alert and oriented to person place and time. They are able to provide their ownhistory. Patient appears to be nontoxic although in mild distress. Skin: Skin is pink warm and dry without any evidence of rashes or lesions. Head: Normocephalic atraumatic. Neck: Trachea is midline, airway is intact Eye: Pupils are equal round and reactive. Extraocular muscles are intact. Conjunctiva is normal. Noevidence of scleral icterus ENMT: Dentition is intact, mucous membranes are moist. No evidence of nasal discharge. Cardiovascular: Regular rate and rhythm without any clicks, murmurs, rubs. The patient does not have any evidence of peripheral edema. Respiratory: Lungs are clear to auscultation without any rhonchi, rales, wheezing. Patient speaks in full sentences does not appear toxic or in any acute distress. Gastrointestinal: No masses appreciated. No obvious hernias. Normal bowel sounds. No fluid wave. Noabdominal tenderness. Morbid obesity Back: No midline point tenderness. No paraspinal musculature tenderness. Extremities: Patient moves all 4 extremities symmetrically. No evidence of gross deformity, no swelling. There is profound tenderness to the area posterior to the greater trochanter of the right hip. Neurological: oriented x 4, LOC appropriate for age, CN II-XII intact, motor strength equal & normal bilaterally, sensation equal & normal bilaterally, speech normal Psychiatric: cooperative, affect appropriate for age, normal judgement, normal psychiatric thoughts. After the patient was examined by close removed and my hands were re-sanitized. The patient was informed of all abnormal physical exam findings. Medical Decision Making Medical Decision Making and Clinical Course Summary: The patient is a 59-year-old female with a known past medical history of a pulmonary embolism, COPD, and tobacco abuse presents to the emergency department secondary to atraumatic right hip and buttock pain. Patient states that she has been in her usual state of health. She got up to walk.She had instant pain in her right hip and posterior buttock area. She had to sit back down and was unable to walk because the pain was so excruciating. There was no trauma. She does not have any midline back tenderness. There is no right flank tenderness. The patient does not have any saddle anesthesia. No numbness or weakness in the leg. Patient does not have any history of artificial joint in th at leg. No recent fever or chills. Pain is a 10 out of 10. Worse to try to stand and bear weight. Relieved by nothing. Additional Historian: EMS Medical Records Reviewed: Reviewed medical history. Labs ordered: None Imaging Ordered: X-ray right hip and pelvis Interpretation of Labs/Imaging: X-ray of the right hip and pelvis is negative for any acute fracture, dislocation, subluxation. Medications administered: Prednisone 40 mg p.o. Orphenadrine 60 mg IM Morphine 4 mg IM Reassessment: 00:02 patient reassessed. Pain is improved but not completely resolved. Patient does not have any pain with passive range of motion. It is not warm to the touch. She does not have any unstable vital signs. Does not appear to have any evidence of a septic joint. No evidence of alternative infections anywhere else. (more content not included)...[facility] Comment on above:Result Comment: Electronically Signed By: Wendi Hinojosa D.O.\.br\Date and Time Signed: 09/10/25 00:08 ESTED Patient Summaryon 80-83-8412PP Patient SummaryED Patient Summary [place] [id number] Patient Discharge Instructions Person Information Name: SIS MOORE Age: 59 Years Arrival Date: 09/09/2025 22:32:39 Discharge Diagnosis: 1:Right hip pain Primary Care Physician: BREA JJ CNP Provider Information Primary Provider: Wendi Hinojosa D.O. Advanced Compensation Programs Manager:None The exam and treatment you received in the Emergency Department were for an urgent problem and are not intended as complete care. It is important that you follow up with a doctor, nurse practitioner,or physician???s assistant associate professor for ongoing care. If your symptoms become worse or you do not improve asexpected and you are unable to reach your usual health care provider, you should return to the Emergency Department. We are available 24 hours a day. SIS MOORE has been given the following list of patient education materials, prescriptions and follow-up instructions: Follow-up Instructions: With: Address: When: BREA JJ CNP [address] [place], [place] [id number] [phone] In 3 days 09/13/2025 In the event that this physician does not participate in your insurance network, please consult with your insurance company to find a nearby participating provider. Patient Education Materials: Hip Pain A MESSAGE TO ALL PATIENTS REGARDING OPIOIDS PRESCRIPTION OPIOIDS: WHAT YOU NEED TO KNOW Prescription opioids can be used to help relieve ilbqrgja-rx-iclxys pain and are often prescribed following a [...] as well, even when taken as directed: ??? Tolerance???meaning you might need to take more of the medication for the same pain relief ??? Physical dependence???meaning you have symptoms of withdrawal when a medication is stopped ??? Increased sensitivity to pain ??? Constipation ??? Nausea, vomiting, and dry mouth ??? Sleepiness and dizziness ??? Confusion ??? Depression ??? Low levels of testosterone that can result in lower sex drive, energy, and strength ??? Itching and sweating RISKS ARE GREATER WITH: ??? History of drug misuse, substance use disorder, or overdose ??? Mental health conditions (such as depression or anxiety) ??? Sleep apnea ??? Older age (65 years and older) ??? Avoid alcohol while taking prescription opioids. Also, unless specifically advised by your health care provider, medications to avoid include: ??? Benzodiazepines (such as Xanax or Valium) ??? Muscle relaxants (such as Soma or Flexeril) ??? Hypnotics (such as Ambien or Lunesta) ??? Other prescription opioids KNOW YOUR OPTIONS Talk to your health care provider about ways to manage your pain that don???t involve prescription opioids. Some of these options may actually work better and have fewer risks and side effects. Options may include: ??? Pain relievers such as acetaminophen, ibuprofen, and naproxen ??? Some medication that are also used for depression or seizures ??? Physical therapy and exercise ??? Cognitive behavioral therapy, a psychological, goal-directed approach, in which patients learn how to modify physical, behavioral, and emotional triggers of pain and stress. IF YOU ARE PRESCRIBED OPIOIDS FOR PAIN: ??? Never take opioids in greater amounts or more often than prescribed. ??? Follow up with your primary health care provider. o Work together to create a plan on how to manage your pain. o Talk about ways to help manage your pain that don???t involve prescription opioids. o Talk about any and all concerns and side effects. ??? Help prevent misuse and abuse o Never sell or share prescription opioids. o Never use another person???s prescription opioids. ??? Store prescription opioids in a secure place and out of reach of others (this may include visitors, children, friends, and family). ??? Safely dispose of unused prescription opioids: Find your community drug take-back program or your pharmacy mail-back program, or flush them down the toilet, following guidance from the Food and Drug Administration (www.fda.gov/Drugs/ResourcesForYou). ??? Visit www.cdc.gov/drugoverdose to learn about the risks of opioids abuse and overdose. ??? If you believe you may be struggling with addiction, tell your health home care assistant and (more content not included)...[facility] XR Hip 2-3 Views Right + Pelvison 85-97-7166QS Hip 2-3 Views Right + PelvisExam Date/Time: 09/09/2025 23:34 EST Reason for Exam: Hip pain Report IMPRESSION: NO ACUTE OSSEOUS ABNORMALITY. EXAMINATION: XR Hip 2-3 Views Right + Pelvis HISTORY: Hip pain COMPARISONS: None available TECHNIQUE: Frontal view of the pelvis and frontal and lateral views of the hip. FINDINGS: No acute proximal femur fracture. No hip dislocation. Joint space of the hip is maintained. Visualized bones of the pelvis are within normal limits. Degenerative changes of the lower lumbar spine noted. Soft tissues are within normal limits. Ordering Provider: Wendi Hinojosa FINAL REPORT Dictated: 09/10/2025 9:24 am Vincenzo Colvin DO Signed (Electronic Signature): 09/10/2025 9:24 am Signed by: Vincenzo Colvin DO Transcribed by: NOHEMY Technologist: EKTANSelect Medical Specialty Hospital - TrumbullPre-Arrival Noteon [id number]-Arrival NotePre-Arrival Note Pre-Arrival Summary Name: WALI Current Date: 09/09/2025 22:32:45 EST Gender: Female Date of : Age: 59 Pre-Arrival Type: EMS ETA: 09/09/2025 22:50:00 EST Primary Care Physician: Presenting Problem: R hip pain Pre-Arrival User: Kailee Toledo RN Referring Source: Location: [place] Completion Date/Time: 09/09/2025 22:21:00 [facility] Emergency Department Pre-Hospital Report Form Vital Signs: 142/72, 92HR, 95% 3L- baseline Pre-Hospital Report: Treatment in Route: Response to Treatment: Misc. Issues:[facility] HospitalHbA[facility]c HPLC (Bld) [Mass fraction] Ordered By: Brea Jj on 64-58-5236KdG3z (Bld) [Mass fraction]6.3 %[facility] LimaToxassure, Urineon 33-21-4058Ivccyharl, Urine Summary FINALNormal.The [facility] Physician GroupComment on above:Result Comment: TOXASSURE COMP DRUG ANALYSIS,UR Test Result Flag Units Drug Present 7-aminoclonazepam 97 ng/mg creat 7-aminoclonazepam is an expected metabolite of clonazepam. Source of clonazepam is a scheduled prescription medication. Carboxy-THC >885 ng/mg creat Carboxy-THC is a metabolite of tetrahydrocannabinol (THC). Source of THC is most commonly herbal marijuana or marijuana-based products, but THC is also present in a scheduled prescription medication. Trace amounts of THC can be present in hemp and cannabidiol (CBD) products. This test is not intended to distinguish between mwjuy-8-cykvoubkkjzzlphtpcio, the predominant form of THC in most herbal or marijuana-based products, and ijjki-4-fvzvtswpnxxzklpxhmgc. Gabapentin PRESENT Duloxetine PRESENT Acetaminophen PRESENT Metoprolol PRESENT Test Result Flag Units Ref Range Creatinine 113 mg/dL >=20 Declared Medications: Medication list was not provided. For clinical consultation, please call . Performed at: [facility] [address] [place] [id number] Tube Machine Operator Helper: Nidhi Perla [facility], Phone: [phone] PERFORMED BY: [address] [place] [address] PATHOLOGIST TIRE SERVICER DONALD MAJOR M.D.Performed By: #### TOXASSURE #### [facility] ,Glomerular filtration rate (GFR) estimation in non- AmericanOrdered By: Brea Jj on 11-53-0145NJW/1.73 sq M.predicted among non-blacks MDRD (S/P/Bld) [Vol rate/Area]mL/min/{1.73_m2}>=60 mL/min/1.73m 2FKettering [facility] MemorialLaboratory - Chemistry and Chemistry - challengeOrdered By: Brea Jj on 06-98-1451Rbnuujt [Mass/Vol]10.1 mg/dL8.5-10.1FKettering Health Greene MemorialChloride [Moles/Vol]98 mmol/P53-235CcgovtpnxKindred Hospital LimaCO2 [Moles/Vol]38.8 mmol/LHigh21.0-32.0[facility] Creatinine [Mass/Vol]0.89 mg/dL0.55-1.02[facility] GFR/1.73 sq M.predicted MDRD (S/P/Bld) [Vol rate/Area]mL/min/{1.73_m2}>=60 mL/min/1.[address]m [address] [place], [place] [address]Glucose [Mass/Vol]135 mg/dLHigh 74-106[facility] LimaMagnesium [Mass/Vol]1.6 mg/dLLow1.8-2.4 [facility] LimaPotassium [Moles/Vol]3.9 mmol/L3.5-5.1FFlower Hospitalodium [Moles/Vol]140 mmol/W911-023FrdnhaqwcKindred Hospital LimaUrea nitrogen [Mass/Vol]14.0 mg/dL7.0-18.0[facility] LimaUrea nitrogen/Creatinine [Mass ratio]15.7 mg/mgAccess Hospital Daytonerum or plasma anion gap determinationOrdered By: Brea Jj on 32-93-8147Vxgkv gap [Moles/Vol]7.1 mmol/LFKettering Health Greene Memorial Basophils Auto (Bld) [#/Vol]Ordered By: Marshal Rivera on 76-09-0916Ebpkjaalv (Bld) [#/Vol]0.0 10 3/uL0.0-0.1FKettering Health Greene MemorialBasophils/100 WBC Auto (Bld)Ordered By: Marshal Rivera on 05-97-5181Mkvnnxrcl/100 WBC (Bld)0.2 %0.2-2.0 [facility] LimaEosinophils/100 WBC Auto (Bld)Ordered By: Marshal Rivera on 82-65-8601Agunxzscsdc/100 WBC (Bld)4.2 %0.9-7.0[facility] Hospital LimaErythrocyte distribution width Auto (RBC) [Ratio]Ordered By: Marshal Rivera on 15-95-9914Bjhkmutdocx distribution width (RBC) [Ratio]15.4 %High 11.0-15.0[facility] Hospital LimaGlomerular filtration rate (GFR) estimation in non- AmericanOrdered By: Marshal Rivera on 55-64-0320PYF/1.73 sq M.predicted among non-blacks MDRD (S/P/Bld) [Vol rate/Area]mL/min/{1.73_m2} >=60 mL/min/1.73m 2FKettering Health Greene MemorialHematocrit Auto (Bld) [Volume fraction]Ordered By: Marshal Rivera on 75-07-9826Mkttqgxscz (Bld) [Volume fraction]41.6 %36.0-48.0[facility] LimaHemoglobin [Mass/volume] in BloodOrdered By: Marshallaurence Rivera on 86-49-1318Ldzbbteolx (Bld) [Mass/Vol]13.7 g/dL12.0-16.0[facility] LimaLaboratory - Chemistry and Chemistry - challengeOrdered By: Marshallaurence Rivera on 92-65-7852Soutryi [Mass/Vol]9.7 mg/dL8.5-10.1FKet[facility] Greene MemorialChloride [Moles/Vol] 103 mmol/Y74-062KiunzcqniKindred Hospital LimaCO2 [Moles/Vol]35.0 mmol/LHigh 21.0-32.0[facility] LimaCreatinine [Mass/Vol]0.70 mg/dL 0.55-1.02[facility] LimaGFR/1.73 sq M.predicted MDRD (S/P/Bld) [Vol rate/Area]mL/min/{1.73_m2}>=60 mL/min/1.73m 2FK[facility] Greene MemorialGlucose [Mass/Vol]122 mg/zPDmvy59-824LjapvaudmKindred Hospital Lima Natriuretic peptide B (Bld) [Mass/Vol]257.0 pg/mL<=900.0[facility] LimaPotassium [Moles/Vol]3.9 mmol/L3.5-5.1FFlower Hospitalodium [Moles/Vol]143 mmol/A258-060KacaxcgyfKindred Hospital LimaUrea nitrogen [Mass/Vol]9.0 mg/dL7.0-18.0[facility] LimaUrea nitrogen/Creatinine [Mass ratio]12.9 mg/mgKindred Hospital Lima Laboratory - Hematology and Cell countsOrdered By: Marshallaurence Rivera on 07-10-2025 Immature granulocytes/100 WBC (Bld)0.3 %0.0-0.5FKet[facility] Memorial Laboratory - Microbiology and Antimicrobial susceptibilityOrdered By: Sheldon Mckee on 30-77-1560DOJE-CoV-2 (COVID-19) RNA PANDA+probe Ql (Unsp spec)Negative NEGATIVEKindred Hospital LimaComment on above:This test has not been FDA cleared or approved, but has beenauthorized by the FDA under an Emergency Use Authorization(EUA) for use by authorized laboratories certified underIA that meet the requirements to perform moderate or highcomplexity testing. This test has been authorized only forthe detection of proteins from SARS-CoV-2, not for any otherviruses or pathogens. The emergency use of this test isauthorized for the duration of the declaration thatcircumstances exist justifying the authorization ofemergency use of in vitro diagnostic tests for detectionand/or diagnosis of Covid-19 under section 564(b)(1) of theAct, 21 U.S.C. 360bbb- 3(b)(1), unless the declaration isterminated or authorization is revoked sooner. Leukocytes [#/volume] corrected for nucleated erythrocytes in Blood by Automated counOrdered By: Marshal Rivera on 23-62-5934JWH corrected for nucl RBC Auto (Bld) [#/Vol]6.4 10 3/uL4.0-11.0[facility] LimaLymphocytes Auto (Bld) [#/Vol]Ordered By: Marshal Rivera on 41-13-6516Mayqcomoivs (Bld) [#/Vol]1.3 10 3/uL1.2-3.8[facility] Hospital LimaLymphocytes/100 WBC Auto (Bld) Ordered By: Marshal Rivera on 25-89-0863Bvvvjusghkd/100 WBC (Bld)20.0 %Low20.5-60.0 [facility] Auto (RBC) [Entitic mass]Ordered By: Marshal Rivera on 90-67-4962HXY (RBC) [Entitic mass]30.1 pg26.7-34.0[facility] for RehabilitationHC Auto (RBC) [Mass/Vol]Ordered By: Marshal Rivera on 23-60-7108IAIU (RBC) [Mass/Vol]32.9 g/dL29.9-35.2FKettering Health Greene MemorialMCV Auto (RBC) [Entitic vol]Ordered By: Marshal Rivera on 42-10-7516PCT (RBC) [Entitic vol] 91.4 fL81.0-99.0[facility] LimaMonocytes Auto (Bld) [#/Vol] Ordered By: Marshal Rivera on 80-34-0242Urfmbtbwh (Bld) [#/Vol]0.6 10 3/uL0.3-0.8 [facility] LimaMonocytes/100 WBC Auto (Bld)Ordered By: Marshal Rivera on 28-62-4337Xctkjkcsm/100 WBC (Bld)10.0 %1.7-12.0[facility] LimaNeutrophils Auto (Bld) [#/Vol]Ordered By: Marshal Rivera on 07-10-2025 Neutrophils (Bld) [#/Vol]4.2 10 3/uL1.4-6.5FK[facility] Memorial Neutrophils/100 WBC Auto (Bld)Ordered By: Marshal Rivera on 07-10-2025 Neutrophils/100 WBC (Bld)65.3 %43.0-75.0[facility] LimaNo Panel InformationOrdered By: Marshal Rivera on 12-98-5383Muatjiz Influenza Type A AntigenNegativeKindred Hospital LimaComment on above:Negative for Flu A protein antigen. Infection due to Flu Acannot be ruled out. Flu A antigen in thesample may bebelow the detection limit of the test.Bedside Influenza Type B AntigenNegativeKindred Hospital LimaComment on above:Negative for Flu B protein antigen. Infection due to Flu Bcannot be ruled out. Flu B antigen in thesample may bebelow the detection limit of the test.Eosinophils # (Auto)0.3 10 3/uL0.0-0.7FKettering Health Greene MemorialImmature Granulocyte # (Auto) 0.02 10 3/uL0.00-0.03[facility] LimaTroponin I High Sensitivity9.5 pg/mL4.0-51.3FKettering Health Greene MemorialComment on above: CUT-OFF POINTS HAVE BEEN ESTABLISHED BASED ON THE FOURTHUNIVERSAL DEFINITION OF MYOCARDIAL INFARCTION. THE UPPERREFERENCE LIMIT (URL) OF TROPONIN, DEFINED THE 99THPERCENTILE OF cTnI DISTRIBUTION IN A REFERENCE POPULATION,HAS BEEN CONFIRMED THE DECISION THRESHOLD FOR MIDIAGNOSIS.99TH PERCENTILE = 51.4 PG/MLNOTE: HIGH-SENSITIVITY TROPONIN ASSAY IS NOT INTENDED TO BEUSED IN ISOLATION BUT SHOULD BE INTERPRETED IN CONJUNCTIONWITH OTHER DIAGNOSTIC AND CLINICAL INFORMATION.Platelet mean volume Auto (Bld) [Entitic vol]Ordered By: Marshal Rivera on 65-16-8424Ddmarsgv mean volume (Bld) [Entitic vol]12.1 fL9.5-13.5 [facility] LimaPlatelets Auto (Bld) [#/Vol]Ordered By: Marshal Rivera on 44-12-8873Yhdrglwaq (Bld) [#/Vol]161 10 3/eK950-122QxwvrmrxmKindred Hospital LimaRBC Auto (Bld) [#/Vol]Ordered By: Marshal Rivera on 46-57-6587OQW (Bld) [#/Vol]4.55 10 6/uL4.20-5.40Access Hospital Daytonerum or plasma anion gap determinationOrdered By: Marshla Rivera on 85-77-5895Iugcz gap [Moles/Vol]8.9 mmol/LFKettering Health Greene MemorialCT LUNG SCREENING LOW DOSE [place] 36-05[place] [address] [place] Scan Report Signed Patient: SIS MOORE MR#: [id number] : 1965 Acct:[id number] Age/Sex: 59 / F ADM Date: 06/24/25 Loc: CT Attending Dr: Corrina Gaines D.O. Ordering Physician: Corrina Gaines D.O. Date of Service: 06/24/25 Procedure(s): CT lung screening low-dose Accession Number(s): [id number] cc: Brea Jj NP [place] [id number] Patient Name: SIS MOORE MRN: [id number] date: 1965 Sex: F Assigned Patient Location: CT Current Patient Location: CT Accession/Order Number: [id number] Exam Date: 06/24/2025 10:08 Report Date: 06/24/2025 [...] Rasmussen M.D. 06/24/2025 11:52 AM Dictation Location: [place] [address] Electronically authenticated by: [id number] Y Date: 06/24/2025 11:52 Dictated By: Krystyna Rasmussen M.D. Signed By: 06/24/25 1155 DD/ 1152 TD/TT: Fish Farmer:TBHRadiology, Radiologist, - 06/24/2025 [place] [address] CT Scan Report Signed Patient: SIS MOORE MR#: [id number] : 1965 Acct:[id number] Age/Sex: 59 / F ADM Date: 06/24/25 Loc: CT Attending Dr: Corrina Gaines D.O. Ordering Physician: Corrina Gaines D.O. Date of Service: 06/24/25 Procedure(s): CT lung screening low-dose Accession Number(s): [id number] cc: Brea Jj NP [address] [address] Patient Name: SIS MOORE MRN: [facility]:[id number] date: 1965 Sex: F Assigned Patient Location: CT Current Patient Location: CT Accession/Order Number: [id number] Exam Date: 06/24/2025 10:08 Report Date: 06/24/2025 [...] Rasmussen M.D. 06/24/2025 11:52 AM Dictation Location: [place] [address] Electronically authenticated by: [id number] Y Date: 06/24/2025 11:52 Dictated By: Krystyna Rasmussen M.D. Signed By: 06/24/25 1155 DD/ 1152 TD/TT: Fish Farmer: [facility] HOSPITALTorsten HealthcareRadiology Study observation (narrative)NOMS HealthcareCT LUNG SCREENING LOW DOSEOrdered By: Radiologist Radiology on 97-74-2863[facility] Work Phone: aLL BASIC METABOLIC PANELon 88-68-1313Hxcwv gap [Moles/Vol]12 mmol/LNOMS HealthcareCalcium [Mass/Vol]10.1 mg/dL8.5 - 10.1 mg/dL NOMS HealthcareChloride [Moles/Vol]101 mmol/L98 - 107 mmol/LNOMS HealthcareCO2 [Moles/Vol]32 mmol/L21.0 - 32.0 mmol/LNOMS HealthcareCreatinine [Mass/Vol]0.87 mg/dL0.55 - 1.02 mg/dLNOMT HealthcareGFR/1.73 sq M.predicted CKD-EPI (S/P/Bld) [Vol rate/Area]>60>=60 mL/min/1.73m 2NOMS HealthcareGlucose [Mass/Vol]127 mg/dL High74 - 106 mg/dLNOMT HealthcarePotassium [Moles/Vol]4 mmol/L3.5 - 5.1 mmol/L NOM HealthcareSodium [Moles/Vol]141 mmol/L136 - 145 mmol/LNOMS HealthcareTBH EGFR-NON AF FRENCH>60>=60 mL/min/1.73m 2NOMS HealthcareUrea nitrogen [Mass/Vol]16 mg/dL7.0 - 18.0 mg/dLNOMT HealthcareUrea nitrogen/Creatinine [Mass ratio]18.4 mg/mgNOMT HealthcareALL MAGNESIUMon 28-89-4097Ndkxsmonu [Mass/Vol]1.2 mg/dLLow1.8 - 2.4 mg/dLSaint Mary's Health CenterNo Panel Informationon 06-05-2025 Interpretation and review of laboratory resultsAbnormalNOMT HealthcareCLINISYNC [facility] HealthcareALL CBC WITH AUTO DIFFon 91-92-3435KJKMOEWZL ABSOLUTE AJFT6MDRB HealthcareBasophils/100 WBC (Bld)0.1 %Low0.2 - 2.0 %[facility] Healthcare Eosinophils/100 WBC (Bld)0.7 %Low0.9 - 7.0 %[facility] HealthcareErythrocyte distribution width (RBC) [Ratio]15.5 %High11.0 - 15.0 %[facility] HealthcareHematocrit (Bld) [Volume fraction]39.9 %36.0 - 48.0 %[facility] CenterHemoglobin (Bld) [Mass/Vol]13.4 g/dL12.0 - 16.0 g/dLSaint Mary's Health CenterIMMATURE GRANULOCYTES ABS AUTO 0.02NOMS [facility] SpringfieldImmature granulocytes/100 WBC (Bld)0.2 %0.0 - 0.5 %[facility] CenterInterpretation and review of laboratory resultsAbnormalSaint Mary's Health Center LYMPHOCYTES ABSOLUTE AUTO1.2NOMS [facility] SpringfieldLymphocytes/100 WBC (Bld)12.8 %Low 20.5 - 60.0 %[facility] HospitalH (RBC) [Entitic mass]30.2 pg26.7 - 34.0 pgPike County Memorial HospitalHC (RBC) [Mass/Vol]33.6 g/dL29.9 - 35.2 g/dLPike County Memorial HospitalV (RBC) [Entitic vol]89.9 fL81.0 - 99.0 fLSaint Mary's Health CenterMONOCYTES ABSOLUTE QDAH7Qfll [facility] CenterMonocytes/100 WBC (Bld)10.4 %1.7 - 12.0 %[facility] NEUTROPHILS ABSOLUTE AUTO7.1HighSaint Mary's Health CenterNeutrophils/100 WBC (Bld)75.8 % High43.0 - 75.0 %[facility] CenterPlatelet mean volume (Bld) [Entitic vol]11.8 fL 9.5 - 13.5 fLSaint Mary's Health CenterTBH EO #0.1NOMS HealthcareTBH OFU074ZCPY [facility] TBH RBC4.44NOMS [facility] SpringfieldTB WBC9.4NOHermann Area District HospitalCLINISYNCNThe Rehabilitation InstituteBasic Metabolic Panelon 18-01-2888Wklwfcxtxs Clr Calc Zyiztlqt95.82NormAdventHealth Wauchula Physician GroupComment on above:Performed By: #### CBC, BMP, MG #### [facility] [address] [place] [address] USAGFR/1.73 sq M.predicted MDRD (S/P/Bld) [Vol rate/Area] 37.536 mL/min/{1.73_m2}NormalTgh Brooksville Physician GroupComment on above: Performed By: #### CBC, BMP, MG #### [facility] [address] [id number] USABasophils [#/volume] in Blood by Automated countOrdered By: Debbie Alejandro on 25-03-9782Nvysyovby (Bld) [#/Vol]0.0 10*3/uLNormal0.0-0.2 [facility] LimaComment on above:Result Comment: PERFORMED BY: [place] [address] PATHOLOGIST TIRE SERVICER DONALD MAJOR M.D.Performed By: #### CBC, BMP, MG #### [facility] [address] [place] [address] USABasophils/100 leukocytes in Blood by Automated count Ordered By: Debbie Alejandro on 23-80-4141Lcobvboyk/100 WBC (Bld)0.5 %Normal. [facility] Hospital LimaComment on above:Performed By: #### CBC, BMP, MG #### [facility] [address] [place] [address] USACalcium [Mass/volume] in Serum or PlasmaOrdered By: Debbie Alejandro on 45-46-6956Dsaarul [Mass/Vol]8.7 mg/dLNormal8.6-10.3FKettering Health Greene MemorialComment on above:Performed By: #### CBC, BMP, MG #### [facility] [address] [place], [place] [id number] USACapillary blood glucose measurement by glucometer (mass/volume)Ordered By: Marshall Mckeon on 64-10-7504Vafzdlh [Mass/Vol]97 mg/dL NormalKindred Hospital LimaComment on above:Random Glucose Reference Range is dependent on time and content of last meal. Glucose of more than 200 mg/dL in a nonstressed, ambulatory subject supports the diagnosis of Diabetes Mellitus.Result Comment: Random Glucose Reference Range is dependent on time and content of last meal. Glucose of more than 200 mg/dL in a nonstressed, ambulatory subject supports the diagnosis of Diabetes Mellitus. PERFORMED BY: [place] [address] PATHOLOGIST TIRE SERVICER DONALD MAJOR M.D.Performed By: #### GLULS #### Point of Care testing ,Carbon dioxide, total [Moles/volume] in Serum or PlasmaOrdered By: Debbie Alejandro on 22-51-0205PX3 [Moles/Vol]25.8 mmol/YNtsgqc83.0-31.0[facility] Hospital LimaComment on above:Performed By: #### CBC, BMP, MG #### [facility] [address] [place] [address] USAChloride [Moles/volume] in Serum or PlasmaOrdered By: Debbie Alejandro on 86-26-2986Zwpuepyg [Moles/Vol]111 mmol/VIhpe91-511ScejjnfheKindred Hospital LimaComment on above:Performed By: #### CBC, BMP, MG #### [facility] [address] [place] [address] USAComplete Blood Count Auto Diffon 27-69-4781Gnay Corpuscular HGB Conc33.2 g/qLLorkjm52.0-35.0The [facility] Physician GroupComment on above:Performed By: #### CBC, BMP, MG #### [facility] [address] [place] [address] USANRBC%0.1 /100{WBC}Normal0-0.5The [facility] Comment on above:Performed By: #### CBC, BMP, MG #### [facility] [address] [place] [address] USAWhite Blood Count6.0 [CFU]/mLNormal3.8-11.6The [facility] - Greensboro Physician GroupComment on above:Performed By: #### CBC, BMP, MG #### [place] [address] USACreatinine [Mass/volume] in Serum or PlasmaOrdered By: Debbie Alejandro on 36-64-3630Xvxnxlvqjk [Mass/Vol]1.57 mg/dLHigh0.60-1.20[facility] Hospital LimaComment on above:Performed By: #### CBC, BMP, MG #### [place] [address] USAEosinophils [#/volume] in Blood by Automated countOrdered By: Debbie Alejandro on 77-12-2405Xzqdqmdyneb (Bld) [#/Vol]0.1 10*3/uLNormal0.0-0.45 [facility] LimaComment on above:Performed By: #### CBC, BMP, MG #### [facility] [address] [place] [address] USAEosinophils/100 leukocytes in Blood by Automated count Ordered By: Debbie Alejandro on 84-15-7151Efwfblbxgfq/100 WBC (Bld)2.1 %Normal. [facility] Hospital LimaComment on above:Performed By: #### CBC, BMP, MG #### [facility] [address] [place] [address] USAErythrocyte distribution width [Ratio] by Automated count Ordered By: Debbie Alejandro on 02-79-6703Nmwrlzrbasw distribution width (RBC) [Ratio]15.5 %High11.9-15.3FKettering Health Greene MemorialComment on above: Performed By: #### CBC, BMP, MG #### [facility] [address] [id number] USAErythrocytes [#/volume] in Blood by Automated countOrdered By: Debbie Alejandro on 82-98-8104FQR (Bld) [#/Vol]4.16 10*6/uLNormal3.60-5.00 [facility] Hospital LimaComment on above:Performed By: #### CBC, BMP, MG #### [facility] [address] [place] [address] USAGlucose [Mass/volume] in Serum or PlasmaOrdered By: Debbie Alejandro on 27-68-4644Otwnrsb [Mass/Vol]105 mg/vGBlqn96-243PofjuwyibKindred Hospital LimaComment on above:ADA recommended reference rangeRandom Glucose Reference Range is dependent on time and content of last meal. Glucose of more than 200 mg/dL in a nonstressed, ambulatory subject supports the diagnosisof Diabetes Mellitus.Result Comment: Random Glucose Reference Range is dependent on time and content of last meal. Glucose of more than 200 mg/dL in a nonstressed, ambulatory subject supports the diagnosis of Diabetes Mellitus. ADA recommended reference rangePerformed By: #### CBC, BMP, MG #### [facility] [address] [place] [address] USAHematocrit [Volume Fraction] of Blood by Automated count Ordered By: Debbie Alejandro on 64-60-4249Hcqrsaknbf (Bld) [Volume fraction]37.2 % Vnifnq53.0-46.4FKettering Health Greene MemorialComment on above:Performed By: #### CBC, BMP, MG #### [facility] [address] [place] [address] USAHemoglobin [Mass/volume] in BloodOrdered By: Debbie Alejandro on 12-18-1438Kzvbtvcrpy (Bld) [Mass/Vol]12.4 g/sZCpyvow62.8-15.4FKettering Health Greene MemorialComment on above:Performed By: #### CBC, BMP, MG #### [place] [address] USALeukocytes [#/volume] corrected for nucleated erythrocytes in Blood by Automated counOrdered By: Debbie Alejandro on 74-95-3195LAU corrected for nucl RBC Auto (Bld) [#/Vol]6.0 10*3/uL3.8-11.6FKettering Health Greene MemorialLeukocytes [#/volume] in Blood by Automated countOrdered By: Debbie Alejandro on 12-16-5231GKS (Bld) [#/Vol]6.0 10*3/uLNormal3.8-11.6FKettering Health Greene MemorialComment on above:Performed By: #### CBC, BMP, MG #### [facility] [address] [id number] USALymphocytes [#/volume] in Blood by Automated countOrdered By: Debbie Alejandro on 99-99-2830Rduddnctjws (Bld) [#/Vol]0.9 10*3/uLLow1.00-4.8 [facility] Hospital LimaComment on above:Performed By: #### CBC, BMP, MG #### [address] [id number] USALymphocytes/100 leukocytes in Blood by Automated count Ordered By: Debbie Alejandro on 34-14-3913Ayeqcrjemcv/100 WBC (Bld)15.5 %Normal. [facility] Hospital LimaComment on above:Performed By: #### CBC, BMP, MG #### [facility] [address] [place] [address] [Entitic mass] by Automated countOrdered By: Debbie Alejandro on 21-61-3132NMM (RBC) [Entitic mass]29.8 wxDzkrul09.7-34.3FKettering Health Greene MemorialComment on above:Performed By: #### CBC, BMP, MG #### [facility] [address] [place] [address] Auto (RBC) [Mass/Vol]Ordered By: Debbie Alejandro on 21-02-1607AHGA (RBC) [Mass/Vol]33.2 g/dL32.0-35.0Kindred Hospital LimaMCV [Entitic volume] by Automated countOrdered By: Debbie Alejandro on 59-37-1871ZLL (RBC) [Entitic vol]89.5 aDFeuiiw81-000ShixnkthbKindred Hospital LimaComment on above:Performed By: #### CBC, BMP, MG #### [facility] [address] [place] [address] USAMagnesium [Mass/volume] in Serum or PlasmaOrdered By: Debbie Alejandro on 47-79-7121Hheyjhsur [Mass/Vol]1.4 mg/dLLow1.9-2.7FKettering Health Greene MemorialComment on above:Result Comment: PERFORMED BY: [place] [address] PATHOLOGIST TIRE SERVICER DONALD MAJOR M.D.Performed By: #### CBC, BMP, MG #### [facility] [address] [place] [address] USAMonocytes [#/volume] in Blood by Automated countOrdered By: Debbie Alejandro on 04-08-6939Gsrzlieiu (Bld) [#/Vol]0.7 10*3/uLNormal0.0-0.8 [facility] Hospital LimaComment on above:Performed By: #### CBC, BMP, MG #### [facility] [address] [id number] USAMonocytes/100 leukocytes in Blood by Automated count Ordered By: Debbie Alejandro on 87-53-0825Mltfrwqmg/100 WBC (Bld)11.1 %Normal. [facility] Hospital LimaComment on above:Performed By: #### CBC, BMP, MG #### [facility] [address] [address] USANeutrophils [#/volume] in Blood by Automated countOrdered By: Debbie Alejandro on 81-37-8158Ilaazkawmve (Bld) [#/Vol]4.2 10*3/uLNormal1.8-7.7 [facility] Hospital LimaComment on above:Performed By: #### CBC, BMP, MG #### [facility] [address] [id number] USANeutrophils/100 leukocytes in Blood by Automated count Ordered By: Debbie Alejandro on 41-73-7782Famrgfwfink/100 WBC (Bld)70.8 %Normal. [facility] Hospital LimaComment on above:Performed By: #### CBC, BMP, MG #### [facility] [address] [address] USANo Panel InformationOrdered By: Debbie Alejandro on 05-29-2025 Estimated GFR (CKD-EPI)37.536 mL/MinKindred Hospital LimaPharmacy Creatinine Clearance (Chem52.82Kindred Hospital LimaNucleated erythrocytes [Presence] in Blood by Automated countOrdered By: Debbie Alejandro on 26-76-5720Zcntvslpw RBC Auto Ql (Bld)0.1 /100{WBC}0-0.5FKettering Health Greene MemorialPlatelet mean volume [Entitic volume] in Blood by Automated count Ordered By: Debbie Alejandro on 52-92-5379Khascziw mean volume (Bld) [Entitic vol] 10.5 fLNormal6.3-10.7FKettering Health Greene MemorialComment on above:Performed By: #### CBC, BMP, MG #### [facility] [address] [id number] USAPlatelets [#/volume] in Blood by Automated countOrdered By: Debbie Alejandro on 91-38-7495Vioyeztng (Bld) [#/Vol]118 10*3/tKOtk977-467 [facility] LimaComment on above:Performed By: #### CBC BMP MG #### [facility] [address] [place] [address] USAPotassium [Moles/volume] in Serum or PlasmaOrdered By: Debbie Alejandro on 29-59-8009Kuggxbvdr [Moles/Vol]5.0 mmol/LNormal3.5-5.1FKettering Health Greene MemorialComment on above:Performed By: #### NICK BMP, MG #### [facility] [address] [place] [address] USASerum or plasma anion gap determinationOrdered By: Debbie Alejandro on 27-09-9112Swrsj gap [Moles/Vol]7.2 mmol/LNormal6.0-15.0[facility] Hospital LimaComment on above:Performed By: #### CBC BMP MG #### [facility] [address] [place] [address] USASodium [Moles/volume] in Serum or PlasmaOrdered By: Debbie Alejandro on 32-15-9523Rddbty [Moles/Vol]139 mmol/NVxuwqp727-593LfvbumejuKindred Hospital LimaComment on above:Performed By: #### CBC BMP, MG #### [facility] [address] [place] [address] USAUrea nitrogen [Mass/volume] in Serum or PlasmaOrdered By: Debbie Alejandro on 77-36-9926Nrmi nitrogen [Mass/Vol]53 mg/dLHigh7-25[facility] Hospital LimaComment on above:Performed By: #### CBC BMP, MG #### [facility] [address] [place] [address] USAALL CBC WITH AUTO DIFFon 02-74-3080MZSJKTEMJ ABSOLUTE AUTO 0NOMS HealthcareBasophils/100 WBC (Bld)0.3 %0.2 - 2.0 %[facility] Eosinophils/100 WBC (Bld)1.9 %0.9 - 7.0 %[facility] CenterErythrocyte distribution width (RBC) [Ratio]15.2 %High11.0 - 15.0 %[facility] CenterHematocrit (Bld) [Volume fraction]42.9 %36.0 - 48.0 %[facility] CenterHemoglobin (Bld) [Mass/Vol] 14.4 g/dL12.0 - 16.0 g/dLSaint Mary's Health CenterIMMATURE GRANULOCYTES ABS AUTO0.03NOHermann Area District HospitalImmature granulocytes/100 WBC (Bld)0.3 %0.0 - 0.5 %[facility] Interpretation and review of laboratory resultsAbnoReading Hospital LYMPHOCYTES ABSOLUTE AUTO1.7NOHermann Area District HospitalLymphocytes/100 WBC (Bld)15.2 %Low 20.5 - 60.0 %[facility] Memorial HospitalH (RBC) [Entitic mass]30.4 pg26.7 - 34.0 pgPike County Memorial HospitalHC (RBC) [Mass/Vol]33.6 g/dL29.9 - 35.2 g/dLPike County Memorial HospitalV (RBC) [Entitic vol]90.7 fL81.0 - 99.0 fLSaint Mary's Health CenterMONOCYTES ABSOLUTE NZTI8Dkoj [facility] CenterMonocytes/100 WBC (Bld)9.1 %1.7 - 12.0 %[facility] NEUTROPHILS ABSOLUTE AUTO8.4HighSaint Mary's Health CenterNeutrophils/100 WBC (Bld)73.2 % 43.0 - 75.0 %[facility] Health CenterPlatelet mean volume (Bld) [Entitic vol]12.3 fL9.5 - 13.5 fLSaint Mary's Health CenterTBH EO #0.2NOMS [facility] SpringfieldTB ISC818PZKSNortheast Regional Medical Center RBC 4.73NONortheast Regional Medical Center WBC11.5HighSaint Mary's Health CenterCLINISYNCNASCENSION ST. [facility] BqvhkcflwsGuW6j (Bld) [Mass fraction]on 69-02-8540Nbdxhfulkflhpk and review of laboratory resultsAbnoAscension Southeast Wisconsin Hospital– Franklin CampusLaboratory - Hematology and Cell countson 31-51-3464WjC6w (Bld) [Mass fraction]6.3 %[facility] Health CenterUrine Culture on 67-20-1459Scpsurbc identified Cx Nom (U)<9,000 colonies/ml mixed bacterial skin contaminants 2 Days PERFORMED BY: [place] [place] [id number] PATHOLOGIST TIRE SERVICER DONALD MAJOR M.D.NormalThe Kindred Hospital - Greensboro Physician GroupComment on above: Performed By: #### CUU #### [address] [id number] [employer] ECHO DOPPLER COMPLETEon 12-58-1411[place], [place] [address] Cardiology Report Signed Patient: SIS MOORE MR#: [id number] : 1965 Acct:[id number] Age/Sex: 59 / F ADM Date: 04/30/25 Loc: CARD Attending Dr: Marlene Soto M.D. Ordering Physician: Marlene Soto M.D. Date of Service: 04/30/25 Procedure(s): CA echo doppler complete Accession Number(s): [id number] cc: Brea Jj LIGHTING ENGINEER; Marlene Soto M.D. Patient Name: SIS MOORE MR#: [id number] : 1965 Exam Date: 04/30/2025 Ordering Doctor: [...] Signed By: 04/30/25 1413 (more content not included)...TBHRadiology, Radiologist, - 04/30/2025 [address] [place] [id number] Cardiology Report Signed Patient: SIS MOORE MR#: [id number] : 1965 Acct:[id number] Age/Sex: 59 / F ADM Date: 04/30/25 Loc: CARD Attending Dr: Marlene Soto M.D. Ordering Physician: Marlene Soto M.D. Date of Service: 04/30/25 Procedure(s): CA echo doppler complete Accession Number(s): [id number] cc: Brea Jj NP; Marlene Soto M.D. Patient Name: SIS MOORE MR#: [id number] : 1965 Exam Date: 04/30/2025 Ordering Doctor: [...] Signed By: 04/30/25 1413 DD/ 141 TD/TT: Fish Farmer: [facility] HealthcareRadiology Study observation (narrative)NOMS HealthcareCA ECHO DOPPLER COMPLETEOrdered By: Radiologist Radiology on 49-86-3121RJRW [employer] Work Phone: mm TOMOSYNTHESIS SCREENING BIon 52-16-1571[address] [address] Mammography Report Signed Patient: SIS MOORE MR#: [id number] : 1965 Acct:[id number] Age/Sex: 59 / F ADM Date: 04/17/25 Loc: MAMMO Attending Dr: Brea Jj NP Ordering Physician: Brea Jj NP Results: Date of Service: 04/17/25 Follow Up: Procedure(s): MM tomosynthesis screening BI Accession Number(s): [id number] cc: Brea Jj NP Patient Name: SIS MOORE MR#: [id number] : 1965 Exam Date: 04/17/2025 Ordering Doctor: ENRIQUE JJ PEDIATRIC NEUROPSYCHOLOGIST RADIOLOGY REPORT PROCEDURE: MM TOMOSYNTHESIS SCREENING BI [...] Treatments None Family Cancers None LOCATION: [facility] BREAST COMPOSITION: The breasts are almost entirely [...] Signed By: 04/17/25 1639 DD/ 37 TD/TT: Fish Farmer:TBHRadiology, Radiologist, MD - 04/17/2025 [place] [address] Mammography Report Signed Patient: SIS MOORE MR#: [id number] : 1965 Acct:[id number] Age/Sex: 59 / F ADM Date: 04/17/25 Loc: MAMMO Attending Dr: Brea Jj NP Ordering Physician: Brea Jj NP Results: Date of Service: 04/17/25 Follow Up: Procedure(s): MM tomosynthesis screening BI Accession Number(s): [id number] cc: Brea Jj NP Patient Name: SIS MOORE MR#: [id number] : 1965 Exam Date: 04/17/2025 Ordering Doctor: ENRIQUE JJ PEDIATRIC NEUROPSYCHOLOGIST RADIOLOGY REPORT PROCEDURE: MM TOMOSYNTHESIS SCREENING BI [...] Treatments None Family Cancers None LOCATION: The [facility] BREAST COMPOSITION: The breasts are almost entirely [...] Signed By: 04/17/25 1639 DD/ 1638 TD/TT: Fish Farmer: [facility] CenterRadiology Study observation (narrative)[facility] TOMOSYNTHESIS SCREENING BIOrdered By: Radiologist Radiology on 28-75-3070NFMZSaint Mary's Health Center Work Phone: Office Visiton [phone]-up [id number] Sis Moore 1965 F Date Provider Department Center 03/28/2025 [id number], EHAB CARD [facility] Family History Problem Relation Age of Onset Coronary artery disease Other Pulmonary embolism Other Deep vein thrombosis Other Family Status - Relation Status Age at Other Level of Service:[address] MA OFFICE/OUTPATIENT ESTABLISHED MOD MDM [address] [facility] CampusOrders Onlyon 25-95-6737Qxotsu [id number] Sis Moore 1965 F Date Provider Department Center 03/27/2025 [id number], HISTORICAL CARD [facility] Family History Problem Relation Age of Onset Coronary artery disease Other Pulmonary embolism Other Deep vein thrombosis Other Family Status - Relation Status Age at OtherNormalUniversKettering Health DaytonHbA1c (Bld) [Mass fraction]on 95-19-4587Ghcdcdrqwmepvq and review of laboratory resultsAbFormerly [facility], 1928–1983Laboratory - Hematology and Cell countson 03-83-1774OiO4x (Bld) [Mass fraction]6.1 %[facility] CenterAmbulatory Visit Summaryon 01-14-2025 Ambulatory Visit SummaryAmbulatory Visit Summary SIS MOORE :1965 Visit Date:01/14/2025 Ambulatory Visit Instructions Your Diagnosis Diarrhea Unintentional weight loss Positive occult stool blood test Your Care Team Attending Physician - Suzanna Eddy MD Primary Care Physician - BREA JJ CNP This Is Your Medications List Contact prescribing physician if questions or concerns albuterol (Ventolin HFA 90 mcg/inh Aerosol-Adpt) albuterol-ipratropium (albuterol-ipratropium Inh Debby 3 mL UD) aspirin (Aspirin [...] Aerosol) fluticasone nasal (fluticasone Nasal 0.05 mg/inh [place]) formoterol-glycopyrrolate (Bevespi Aerosphere 9 mcg-4.8 mcg/inh inhalation aerosol) formoterol-glycopyrrolate (Bevespi Aerosphere 9 mcg-4.8 mcg/inh inhalation aerosol) furosemide (furosemide 20 mg Tab) gabapentin (gabapentin 300 mg Cap) hydrochlorothiazide-lisinopril (hydrochlorothiazide-lisinopril 25 mg-20 mg Tab) ondansetron (Zofran ODT 4 mg Tab-Dis) pantoprazole (Pantoprazole [address] Tab) pioglitazone (pioglitazone 15 mg Tab) potassium chloride (Potassium Chloride (Tvt-Yrrb-Ovl 10) 10 mEq oral tablet, extended release) [...] Appointments Tuesday 10:00 AM EDT With: Swapna GARCIA, Mariama Chen Where: [facility] You Need to Complete the Following Celiac Disease Comprehensive, Blood, Routine collect, 01/14/25, Order for future visit, Lab Collect, Diarrhea, Print Label By Order Location [place] Gastric Emptying Study, 01/14/25, Routine, Order for Future Visit, Transport Mode: Ambulatory, Reason: Nausea, Diarrhea Unintentional weight loss Positive occult stool blood test, No, pp_set_radiology_subspecialty, [facility] - Julito Medications What How Much When Instructions Unchanged albuterol (Ventolin HFA 90 mcg/ inh Aerosol-Adpt) 1 Puffs Inhalation 4 times a day as needed for for wheezing Contact prescribing physician if questions or concerns Unchanged albuterol-ipratropium (albuterol-ipratropium Inh Debby 3 mL UD) 3 Milliliter Inhalation 4 times a day Contact prescribing physician if questions or concerns Unchanged aspirin (Aspirin Low Dose 81 mg oral enteric coated tablet) Contact prescribing physicianif questions or concerns Unchanged atorvastatin (atorvastatin 40 mg Tab) By Mouth Every day Contact prescribing physician ifquestions or concerns Unchanged busPIRone (busPIRone 15 mg [...] fluticasone nasal (fluticasone Nasal 0.05 mg/ inh [place]) 2 Sprays Nasal Inhalation Every day each nostril Contact prescribing physician if questions or concerns Unchanged formoterol-glycopyrrolate (Bevespi Aerosphere 9 mcg-4.8 mcg/ inh inhalation aerosol) Inhalation 2 times a day Contact prescribing physician if questions or concerns Unchanged formoterol-glycopyrrolate (Bevespi Aerosphere 9 mcg-4.8 mcg/ inh inhalation aerosol) 2 Puffs Inhalation 2 times a day Contact prescribing physician if questions or concerns Unchanged furosemide (furosemide 20 mg Tab) 1 Tablets By Mouth Every day Contact prescribing physician if questions or concerns Unchanged gabapentin (gabapentin 300 mg Cap) 1 Caps (more content not included)...[facility] HospitalG[facility] Office/Clinic Note on 78-26-1764Fausruqmnqvibxzb Office/Clinic NoteGastroenterology Office/Clinic Note Chief Complaint Aicholz ref for diarrhea and weight loss and occult blood HPI Staff Patient is a(n) 59 year old female who was referred by Анна for diarrhea, weight loss, positivehemoccult. Diarrhea: When did it start: September Constant? [...] drinker Depending on results, consider talking to gate clerk (Dr Gaines) about switching medications Counseled on [...] Follow-up No qualifying data (more content not included)...[facility] HospitalComment on above:Result Comment: Electronically Signed By: Nunu BOOTHE, Suzanna Edouard\.br\Date and Time Signed: 01/14/25 08:43 EDT\.br\Electronically Co-Signed By: Kezia Jennings MA\.br\Date and Time Co-Signed: 01/14/25 08:33 PNS60py 60-64-628168Fhmsole needs an apptNormalUniKettering Health HamiltonOCCULT BLOOD*on 38-29-0071Slhpqrmqeyozmg and review of laboratory results AbnormalNOMS HealthcareTBH OCCULT BLOODPositiveAbnormalNOMT HealthcareCLINISYNC NOMS Zfvsbuxaof08lp 82-88-945707Eqbxaaj hasn't been seen since 2022[facility] HospitalALL CBC WITH AUTO DIFFon 66-50-1717DXDZFMMLZ ABSOLUTE KUZY8TVQX HealthcareBasophils/100 WBC (Bld)0.1 %Low0.2 - 2.0 %NOMS HealthcareEosinophils/100 WBC (Bld)3.5 %0.9 - 7.0 %NOMS HealthcareErythrocyte distribution width (RBC) [Ratio]14.6 %11.0 - 15.0 %NOMS HealthcareHematocrit (Bld) [Volume fraction]42.2 %36.0 - 48.0 %NOMS HealthcareHemoglobin (Bld) [Mass/Vol]14 g/dL12.0 - 16.0 g/dLNOMS HealthcareIMMATURE GRANULOCYTES ABS AUTO 0.03NOMS HealthcareImmature granulocytes/100 WBC (Bld)0.3 %0.0 - 0.5 %N[facility] HealthcareInterpretation and review of laboratory resultsAbnormalSaint Mary's Health Center LYMPHOCYTES ABSOLUTE DOPR0UyrLNTQ [facility]tering Health SpringfieldLymphocytes/100 WBC (Bld)10.7 %Low 20.5 - 60.0 %[facility] HospitalH (RBC) [Entitic mass]29.9 pg26.7 - 34.0 pgPike County Memorial HospitalHC (RBC) [Mass/Vol]33.2 g/dL29.9 - 35.2 g/dLPike County Memorial HospitalV (RBC) [Entitic vol]90 fL81.0 - 99.0 fLSaint Mary's Health CenterMONOCYTES ABSOLUTE AUTO0.6NOHermann Area District HospitalMonocytes/100 WBC (Bld)6.9 %1.7 - 12.0 %[facility] Health CenterNEUTROPHILS ABSOLUTE AUTO6.9HighSaint Mary's Health CenterNeutrophils/100 WBC (Bld)78.5 %High43.0 - 75.0 %[facility] Health CenterPlatelet mean volume (Bld) [Entitic vol]12.4 fL9.5 - 13.5 fLSaint Mary's Health CenterTBH EO #0.3NOHermann Area District HospitalTB [id number] Regional Medical Center RBC4.69 [facility] CenterTB WBC8.9[facility] Health CenterCLINISYNCNOMS GchbczalmdZpJ8i (Bld) [Mass fraction]on 78-43-7866Ifgvajtufyxzqk and review of laboratory results NormalUNC Medical CenterLaboratory - Hematology and Cell countson 63-53-9052TwZ2i (Bld) [Mass fraction]7.7 %[facility]36on Patient needs an appointmentNormalUniversity of Corpus Christi Medical Center – Doctors RegionalCB w/ Auto Diffon 73-44-7771Hzmdshmst/100 WBC (Bld)0.6 %Normal0.0-2.0C[facility] Memorial Hospitaler [facility]cy Medical CenterComment on above:Performed By: #### [id number] #### Miguel A [facility] [address] [place], [place] [address]Ttzaifqds/Leukocytes Auto (Bld) [Pure # fraction]0.0 E9/LNormal 0.0-0.2Fisher Mercy Medical CenterComment on above:Performed By: #### [id number] #### Miguel A [facility] [address] [place], [place] [address]Syebpydqnqd (Bld) [#/Vol]0.2 E9/LNormal0.0-0.5FDetwiler Memorial HospitalComment on above:Performed By: #### [id number] #### [facility] [address] [place] [address] 68760Rdaartgnamv/100 WBC (Bld)2.4 %Normal0.0-8.0TrihealthComment on above:Performed By: #### [id number] #### [facility] [address] [place] [address] 66764Oupjscmsfty distribution width (RBC) [Ratio]15.3 %High10.9-14.2 TrihealthComment on above:Performed By: #### [id number] #### [facility] [address] [place] [address] 80969Uyxxxznxsx (Bld) [Volume fraction]42.4 %Catkqs01.0-46.0TrihealthComment on above:Performed By: #### [id number] #### [facility] [address] [place] [address] 50395Hqvkagdsqb (Bld) [Mass/Vol]14.4 g/xBTumzph42.0-16.0TrihealthComment on above:Performed By: #### [id number] #### [facility] [address] [place] [address] 13233Hkcojghzqlf (Bld) [#/Vol]1.6 E9/LNormal1.0-4.0TrihealthComment on above:Performed By: #### [id number] #### [facility] [address] [place] [address] 28960Tuxxdxmjfxb/100 WBC (Bld)20.2 %Yklrys83.0-50.0TrihealthComment on above:Performed By: #### [id number] #### [facility] [address] [place] [address] 67845WUX (RBC) [Entitic mass]30.3 bqGardgb88.0-34.0TrihealthComment on above:Performed By: #### [id number] #### [facility] [address] [place] [address] 74233QRBG (RBC) [Mass/Vol]34.0 g/gUJroqrd16.4-36.0TrihealthComment on above:Performed By: #### 3027417 #### [facility] [address] [place] [address] 98729SCC (RBC) [Entitic vol]89.1 uCRcpvkh26.0-100.0TrihealthComment on above:Performed By: #### 2878264 #### [facility] [address] [place] [address] 26105Jpgovljib (Bld) [#/Vol]0.5 E9/LNormal0.2-1.0TrihealthComment on above:Performed By: #### 2961086 #### [facility] [address] [place] [address] 35719Ffwxxkvxgbi (Bld) [#/Vol]5.4 E9/LNormal2.0-7.5FDetwiler Memorial HospitalComment on above:Performed By: #### 0797205 #### [facility] [address] [place] [address] 58469Vexmfypnead/100 WBC (Bld)69.8 %Leuvde32.0-75.0TrihealthComment on above:Performed By: #### 6780730 #### [facility] [address] [place] [address] 73540Ltzobnnb mean volume (Bld) [Entitic vol]10.8 fLNormal6.4-10.8 TrihealthComment on above:Performed By: #### 9000820 #### [facility] [address] [place] [address] 90986Pukaiajig (Bld) [#/Vol]157.0 E9/UYnvcxx586.0-500.0TrihealthComment on above:Performed By: #### 0437331 #### [facility] [address], [place] [address]TIX (Bld) [#/Vol]4.8 E12/LNormal4.3-5.9TrihealthComment on above:Performed By: #### 6230379 #### [facility] [address], [place] [address]KTJ corrected for nucl RBC Auto (Bld) [#/Vol]7.8 E9/LNormal 4.0-11.0TrihealthComment on above:Performed By: #### 8758566 #### [facility] [address], [place] [address]OESWSEGYRXynkfsk By: SYSTEM SYSTEM on 58-88-1768Dgflgheq [Mass/Vol]76 ng/zAWshytu35 - 307 ng/mLRemisol ChemIron [Mass/Vol]74 ug/dLNormal 35 - 153 mcg/dLRemisol ChemIron binding capacity [Mass/Vol]329 ug/jEYpiint513 - 400 mcg/dLRemisol ChemIron saturation [Mass fraction]22 %Jzsbvc07 - 50 %Remisol ChemTransferrin [Mass/Vol]235 mg/aSJsowcy546 - 370 mg/dLRemisol ChemHEMATOLOGY Ordered By: SYSTEM SYSTEM on 78-64-8102Qosqxnaea/100 WBC (Bld)0.6 %Normal0.0 - 2.0 %Remisol HemeBasophils/Leukocytes Auto (Bld) [Pure # fraction]0.0 E9/LNormal 0.0 - 0.2 E9/LRemisol HemeEosinophils (Bld) [#/Vol]0.2 E9/LNormal0.0 - 0.5 E9/L Remisol HemeEosinophils/100 WBC (Bld)2.4 %Normal0.0 - 8.0 %Remisol Heme Erythrocyte distribution width (RBC) [Ratio]15.3 %High10.9 - 14.2 %Remisol Heme Hematocrit (Bld) [Volume fraction]42.4 %Zxqpoj27.0 - 46.0 %Remisol Heme Hemoglobin (Bld) [Mass/Vol]14.4 g/nFCrhxez72.0 - 16.0 gm/dLRemisol Heme Lymphocytes (Bld) [#/Vol]1.6 E9/LNormal1.0 - 4.0 E9/LRemisol HemeLymphocytes/100 WBC (Bld)20.2 %Akrsmn80.0 - 50.0 %Remisol HemeMCH (RBC) [Entitic mass]30.3 pg Nydwur36.0 - 34.0 pgRemisol HemeMCHC (RBC) [Mass/Vol]34.0 g/jGDdqbea29.4 - 36.0 gm/dLRemisol HemeMCV (RBC) [Entitic vol]89.1 eWIpwbvd84.0 - 100.0 fLRemisol Heme Monocytes (Bld) [#/Vol]0.5 E9/LNormal0.2 - 1.0 E9/LRemisol HemeMonocytes/100 WBC (Bld)7.0 %Normal4.0 - 14.0 %Remisol HemeNeutrophils (Bld) [#/Vol]5.4 E9/LNormal 2.0 - 7.5 E9/LRemisol HemeNeutrophils/100 WBC (Bld)69.8 %Gdvjpx43.0 - 75.0 % Remisol HemePlatelet mean volume (Bld) [Entitic vol]10.8 fLNormal6.4 - 10.8 fL Remisol HemePlatelets (Bld) [#/Vol]157.0 E9/YKnkugz955.0 - 500.0 E9/LRemisol HemeRBC (Bld) [#/Vol]4.8 E12/LNormal4.3 - 5.9 E12/LRemisol HemeWBC corrected for nucl RBC Auto (Bld) [#/Vol]7.8 E9/LNormal4.0 - 11.0 E9/LRemisol HemeIronon 30-10-7178Lvjg [Mass/Vol]74 microgram/uJCbckhy92-518JrtsimTrihealth Comment on above:Performed By: #### [id number] #### [facility] [address], [place] [address]Cpoe Saturationon 55-58-1126Qsdx binding capacity [Mass/Vol]329 microgram/uRKhvblp673-001KezsdaTrihealthComment on above:Performed By: #### 1173882 #### [facility] [address], [place] [address]Yaxj saturation [Mass fraction]22 %Kscbpc95-19OisrwbTrihealthComment on above:Performed By: #### 5496975 #### [facility] [address], [place] [address]Apqpoxeqlwree 79-92-7934Tefgxqdbbvb [Mass/Vol]235 mg/dLNormal 200-370TrihealthComment on above:Performed By: #### 7594692 #### [facility] [address], [place] [address]UX LUNG SCREENING LOW DOSEon 84-07-[place]47[place] [address] [place] Scan Report Signed Patient: SIS MOORE MR#: [id number] : 1965 Acct:[id number] Age/Sex: 58 / F ADM Date: 05/29/24 Loc: CT Attending Dr: Corrina Gaines D.O. Ordering Physician: Corrina Gaines D.O. Date of Service: 05/29/24 Procedure(s): CT lung screening low-dose Accession Number(s): [id number] cc: Brea Jj NP [place] [id number] Patient Name: SIS MOORE MRN: [id number] date: 1965 Sex: F Assigned Patient Location: CT Current Patient Location: CT Accession/Order Number: [id number] Exam Date: 05/29/2024 09:29 Report Date: 05/29/2024 [...] in 12 months. Electronically authenticated by: LEANA AYOUB Date: 05/29/2024 16:02 Dictated By: Leana Ayoub M.D. Signed By: 05/29/24 1604 DD/ 1602 TD/TT: Fish Farmer:TBHRadiology, Radiologist, - 05/29/2024 [place] [address] CT Scan Report Signed Patient: SIS MOORE MR#: [id number] : 1965 Acct:[id number] Age/Sex: 58 / F ADM Date: 05/29/24 Loc: CT Attending Dr: Corrina Gaines D.O. Ordering Physician: Corrina Gaines D.O. Date of Service: 05/29/24 Procedure(s): CT lung screening low-dose Accession Number(s): [id number] cc: Brea Jj NP The [address] [address] Patient Name: SIS MOORE MRN: [id number] date: 1965 Sex: F Assigned Patient Location: CT Current Patient Location: CT Accession/Order Number: [id number] Exam Date: 05/29/2024 09:29 Report Date: 05/29/2024 [...] in 12 months. Electronically authenticated by: LEANA AYOUB Date: 05/29/2024 16:02 Dictated By: Leana Ayoub M.D. Signed By: 05/29/24 1604 DD/ 1602 TD/TT: Fish Farmer: [facility] HOSPITALTorsten HealthcareRadiology Study observation (narrative)[facility] CenterCT LUNG SCREENING LOW DOSEOrdered By: Radiologist Radiology on 99-31-9813KMNY [employer] Work Phone: mm TOMOSYNTHESIS SCREENING BIon 26-15-0772[place], [place] [address] Mammography Report Signed Patient: SIS MOORE MR#: [id number] : 1965 Acct:[id number] Age/Sex: 58 / F ADM Date: 04/16/24 Loc: MAMMO Attending Dr: Brea Jj NP Ordering Physician: Brea Jj NP Results: Date of Service: 04/16/24 Follow Up: Procedure(s): MM tomosynthesis screening BI Accession Number(s): [id number] cc: Brea Jj NP Patient Name: SIS MOORE MR#: [id number] : 1965 Exam Date: 04/16/2024 Ordering Doctor: [...] Treatments None Family Cancers None LOCATION: The [facility] BREAST COMPOSITION: The breasts are almost entirely [...] PALPABLE LUMP SHOULD BE BIOPSIED. Dictated by: Miguel Mederos M.D. on 04/16/2024 at 14:17 Approved by: Miguel Mederos M.D. on 04/16/2024 at 15:04 Dictated By: Miguel Mederos M.D. Signed By: 04/16/24 1505 DD/ 1504 TD/TT: Fish Farmer:TBHRadiology, Radiologist, MD - 04/16/2024 [place] [address] Mammography Report Signed Patient: SIS MOORE MR#: [id number] : 1965 Acct:[id number] Age/Sex: 58 / F ADM Date: 04/16/24 Loc: MAMMO Attending Dr: Brea Jj NP Ordering Physician: Brea Jj NP Results: Date of Service: 04/16/24 Follow Up: Procedure(s): MM tomosynthesis screening BI Accession Number(s): [id number] cc: Brea Jj NP Patient Name: SIS MOORE MR#: [id number] : 1965 Exam Date: 04/16/2024 Ordering Doctor: [...] Treatments None Family Cancers None LOCATION: [facility] BREAST COMPOSITION: The breasts are almost entirely [...] PALPABLE LUMP SHOULD BE BIOPSIED. Dictated by: Miguel Mederos M.D. on 04/16/2024 at 14:17 Approved by: Miguel Mederos M.D. on 04/16/2024 at 15:04 Dictated By: Miguel Mederos M.D. Signed By: 04/16/24 1505 DD/ 1504 TD/TT: Fish Farmer: NOELLE HealthcareRadiology Study observation (narrative)[facility] TOMOSYNTHESIS SCREENING BIOrdered By: Radiologist Radiology on 55-63-1198BROB [employer] Work Phone: rt PULMONARY FUNCTION TESTon 94-30-6854[place] [id number] Respiratory Report Signed Patient: SIS MOORE MR#: [id number] : 1965 Acct:[id number] Age/Sex: 58 / F ADM Date: 02/13/24 Loc: LAB Attending Dr: Corrina Gaines D.O. Ordering Physician: Corrina Gaines D.O. Date of Service: 02/13/24 Procedure(s): RT pulmonary function test Accession Number(s): [id number] cc: [facility] Test Date: 2024-02-13 Pat Name: SIS MOORE Department: Room: - Gender: Female Field Representative: Gerald aCputo RRT : 1965 Requested By: oCrrina Gaines Order Number: [id number] Reading MD: Corrina Gaines Interpretive Statements Pulmonary function testing was completed according to ATS criteria. Findings were considered accurate and reproducible. Both pre- and post-bronchodilator values utilized for spirometry. Spirometry (based on pre-bronchodilator values): -FEV1/FVC: Normal @ 77% -FEV1: Moderately reduced @ 54% -FVC: Severely reduced @ 54% -YOP76-92%: Reduced @ 47% -There is a partial [...] Electronically Signed On 02-15-2024 7:11:04 EDT by Corrina Gaines Dictated By: Corrina Gaines D.O. Signed By: 02/15/24 0711 DD/ 0914 TD/TT: Fish Farmer:TBHRadiology, Radiologist, - 02/15/[address] [place] [address] Respiratory Report Signed Patient: SIS MOORE MR#: [id number] : 1965 Acct:[id number] Age/Sex: 58 / F ADM Date: 02/13/24 Loc: LAB Attending Dr: Corrina Gaines D.O. Ordering Physician: Corrina Gaines D.O. Date of Service: 02/13/24 Procedure(s): RT pulmonary function test Accession Number(s): [id number] cc: [facility] Test Date: 2024-02-13 Pat Name: SIS MOORE Department: Room: - Gender: Female Field Representative: Gerald Caputo RRT : 1965 Requested By: Corrina Gaines Order Number: [id number] Reading MD: Corrina Gaines Interpretive Statements Pulmonary function testing was completed according to ATS criteria. Findings were considered accurate and reproducible. Both pre- and post-bronchodilator values utilized for spirometry. Spirometry (based on pre-bronchodilator values): -FEV1/FVC: Normal @ 77% -FEV1: Moderately reduced @ 54% -FVC: Severely reduced @ 54% -RUC46-27%: Reduced @ 47% -There is a partial [...] Electronically Signed On 02-15-2024 7:11:04 EDT by Corrina Gaines Dictated By: Corrina Gaines D.O. Signed By: 02/15/24 0711 DD/ TD/TT: Fish Farmer: NOELLE Ventura PULMONARY FUNCTION TESTOrdered By: Radiologist Radiology on 40-55-0497SHSX [employer] Work Phone: RT PULMONARY FUNCTION TESTon 36-31-9635Vgidqrbij Study observation (narrative)[facility] CenterMethylmalonic Acidon 01-23-2024 Methylmalonate [Moles/Vol]301 nmol/LInvalid Interpretation Code0-378Fisher Mercy Medical CenterComment on above:Result Comment: This test was developed and its performance characteristics determined by [facility]. It has not been cleared or approved by the Food and Drug Administration. Performed at: [facility] [id number] MD Tony Martinezformed By: #### [id number], 1577774, 0206839, 9294903, 3767490, 8802676, 8080351 ####[facility] [address] [place], [place] [address]Ijhszkkv Progress Noteon 45-20-5539Ihsgyode Progress NoteChief Complaint PE Pt states she has had a couple visits to hosp. [facility]. Pt just has ques on how blood workresults are. Diagnoses 1. History of pulmonary embolism (Z86.711: Personal history of pulmonary embolism) Oncological History/ROS/PE/Assessment and Plan iSs was referred to our hematology office at [facility] for Thrombophilia work up and decision about duration of anticoagulation for the acute PE diagnosed on . She is a 57-year-old female cigarette smoker with history of hypertension, aqa-kmjksfh-qbloseulw diabetes mellitus, obesity,chronic hypoxic respiratory failure on 3 L home oxygen, and depression who presented on 06/16/23 to [facility] ER with complaints of right-sided chest pain [...] time denies any dizziness or lightheadedness crablanca benson sees pulmonology next month and is due for her annual low dose CT scan has had some GI issues in the past with pain, cramping a lot. has had colonoscopy at [facility] Physical Examination General: alert, no acute [...] Contact Information Swapna ANGUIANO, Mariama Chen, ONC [facility] [address] [place] [phone] Additional Instructions: iron studies, b12, folate, mm (more content not included)...NormalTrihealthCHEMISTRYOrdered By: SYSTEM SYSTEM on 01-30-9633Jrjjkoyff (Vitamin B12) [Mass/Vol]420 pg/cCJbioqt58 - 1500 pg/mL Remisol ChemFerritin [Mass/Vol]63 ng/gVEmfykl86 - 307 ng/mLRemisol ChemFolate [Mass/Vol]15.3 ng/mLNormal>=6.7ng/mLRemisol ChemIron [Mass/Vol]63 ug/aZMlduua43 - 153 mcg/dLRemisol ChemIron binding capacity [Mass/Vol]365 ug/yGIwefdl749 - 400 mcg/dLRemisol ChemIron saturation [Mass fraction]17 %Low20 - 50 %Remisol Chem Transferrin [Mass/Vol]261 mg/xKTkkvkk219 - 370 mg/dLRemisol ChemConsent for Treatmenton 85-84-2814Zkhmafp for Treatment [id number]#1.00TIFFNormalTrihealthConsent for Xvm[id number]#1.00TIFF NormalTrihealthFerritinon 73-99-8540Jkogsehx [Mass/Vol]63 ng/aBEqloni97-666OkwwreTrihealthComment on above:Performed By: #### 11590421, 9176908, 2737219, 7917216, 8438974, 9233094, 6429791 ####[facility] [address] [place], [place] [address]Pftdpcyg 01-16-2024 Folate [Mass/Vol]15.3 ng/mLNormal>=6.7Fisher Mercy Medical CenterComment on above:Performed By: #### 87797639, 8176744, 5873827, 7420652, 0828009, 1849832, 4232655 ####[facility] [address] [place], [place] [address]Zsgpxc 55-22-8952Vcmw [Mass/Vol]63 microgram/sDDemzeb18-481NuvgkrTrihealthComment on above:Performed By: #### 18207209, 7698074, 4112902, 2131014, 3496800, 3421886, 6013769 ####[facility] [address] [place], [place] [address]Kwll Saturationon 19-50-9332Vdoz binding capacity [Mass/Vol]365 microgram/tRLthfbf403-649OsiixiTrihealthComment on above:Performed By: #### 29299562, 1866095, 9574274, 2589596, 6814552, 3366585, 5562700 ####[facility] [address] [place] [address]Onbb saturation [Mass fraction]17 %Lpc24-25IncxbyTrihealth Comment on above:Performed By: #### 99585021, 1803930, 7179249, 5012312, 4264296, 5413145, 1784385 ####[facility] [address] [place], [place] [address]Ibglopbbinjut 44-07-5493Eokkxytraon [Mass/Vol]261 mg/dL Dyoqvs344-953ArqfuaTrihealthComment on above:Performed By: #### 69932919, 3345262, 1397452, 8057527, 6908344, 8165655, 5902338 ####[address] [address]Fni B12on 01-16-2024 Cobalamin (Vitamin B12) [Mass/Vol]420 pg/qDYgdqvi45-9884OetpkxTrihealthComment on above:Performed By: #### 13304201, 6794662, 6135411, 1276578, 9788152, 7829051, 2441949 ####[address] [address]AHB w/ Auto Diffon 15-06-7593Jzzbchjuu/100 WBC (Bld)0.6 % Normal0.0-2.0TrihealthComment on above:Performed By: #### 58475565, 0963700, 4222579, 8731016 ####[address] [address]Hsvkxeezt/Leukocytes Auto (Bld) [Pure # fraction]0.0 E9/LNormal0.0-0.2FDetwiler Memorial HospitalComment on above: Performed By: #### 14000855, 7947594, 0730708, 1691206 ####[address] [address]Gvpzhumjwwt (Bld) [#/Vol]0.2 E9/LNormal0.0-0.5FDetwiler Memorial HospitalComment on above:Performed By: #### 33269662, 2900360, 1296196, 6788297 ####[address] [address]Ssphfmmemxq/100 WBC (Bld)3.0 %Normal 0.0-8.0TrihealthComment on above:Performed By: #### 76632760, 3574578, 4625175, 7652225 ####[address] [address]Gqrdvzdexkq distribution width (RBC) [Ratio]15.7 %High 10.9-14.2FDetwiler Memorial HospitalComment on above:Performed By: #### 73062353, 6907529, 2722854, 3421630 ####[address] [address]Cnifzuicwd (Bld) [Volume fraction] 36.9 %Qvqpgb93.0-46.0TrihealthComment on above:Performed By: #### 50541920, 4699555, 2179376, 9742691 ####[address] [address]Yoionwlmts (Bld) [Mass/Vol]12.4 g/dL Grlwnk56.0-16.0TrihealthComment on above:Performed By: #### 10786978, 5691464, 2895868, 3216872 ####[address] [address]Kcyhghjjfal (Bld) [#/Vol]1.4 E9/L Normal1.0-4.0TrihealthComment on above:Performed By: #### 08120162, 5572317, 3377608, 7907992 ####[address] [address]Njdsldeazjc/100 WBC (Bld)20.7 %Normal 14.0-50.0TrihealthComment on above:Performed By: #### 30284847, 2771481, 1740894, 3422666 ####[address], [place] [address]CLG (RBC) [Entitic mass]29.5 pgNormal 27.0-34.0TrihealthComment on above:Performed By: #### 47554113, 9610125, 4965380, 6509884 ####[address] [address]DZMR (RBC) [Mass/Vol]33.6 g/dLNormal 31.4-36.0TrihealthComment on above:Performed By: #### 82319245, 4442420, 5462238, 8586582 ####[address] [address]WED (RBC) [Entitic vol]87.9 fLNormal 80.0-100.0TrihealthComment on above:Performed By: #### 10203756, 7020267, 6670824, 8024876 ####[address] [address]Otcyewbam (Bld) [#/Vol]0.6 E9/LNormal 0.2-1.0TrihealthComment on above:Performed By: #### 15823342, 9228882, 0866790, 8366988 ####[address] [address]Fdzpkbntzsw (Bld) [#/Vol]4.5 E9/LNormal2.0-7.5FDetwiler Memorial HospitalComment on above:Performed By: #### 17836811, 7098132, 3401911, 2485570 ####[address] [address]Ekohhgiuiha/100 WBC (Bld)66.7 %Yuxlea29.0-75.0[facility] Comment on above:Performed By: #### 59321128, 4160601, 7715447, 4289252 ####[address] [address] Platelet mean volume (Bld) [Entitic vol]10.3 fLNormal6.4-10.8TrihealthComment on above:Performed By: #### 42572306, 0154706, 4121299, 4845890 ####[facility] [address] [place], [place] [address]Xklhxbppf (Bld) [#/Vol]196.0 E9/HWprmde431.0-500.0TrihealthComment on above:Performed By: #### 61722187, 2328860, 5289169, 0040774 ####[facility] [address] [place], [place] [address]HOQ (Bld) [#/Vol]4.2 E12/LLow4.3-5.9TrihealthComment on above: Performed By: #### 51737517, 6943602, 2860127, 7286167 ####[facility] [address] [place] [address]FGV corrected for nucl RBC Auto (Bld) [#/Vol]6.8 E9/LNormal4.0-11.0TrihealthComment on above:Performed By: #### 79590490, 0782887, 0887587, 2060029 ####[facility] [address] [place], [place] [address]MJNIMNKUMLejspmy By: SYSTEM SYSTEM on 60-06-3054Dopgojc [Mass/Vol]4.1 g/dLNormal3.3 - 5.0 gm/dL Remisol ChemAlbumin/Globulin [Mass ratio]1.2 {ratio}Normal1.1 - 2.2Remisol Chem ALP [Catalytic activity/Vol]61 [iU]/pRoacjt81 - 98 Int._Unit/LRemisol ChemALT No additional P-5'-P [Catalytic activity/Vol]17 [iU]/dNormal6 - 46 Int._Unit/L Remisol ChemAnion gap [Moles/Vol]12 mmol/LNormal6 - 16 mEq/LRemisol ChemAST [Catalytic activity/Vol]18 [iU]/dNormal5 - 43 Int._Unit/LRemisol ChemBilirubin [Mass/Vol]0.4 mg/dLNormal0.0 - 1.1 mg/dLRemisol ChemCalcium [Mass/Vol]9.8 mg/dL Normal8.9 - 11.1 mg/dLRemisol ChemChloride [Moles/Vol]101 mmol/XJjowxk997 - 111 mmol/LRemisol ChemCO2 [Moles/Vol]28 mmol/GAqlpik74 - 31 mmol/LRemisol Chem Creatinine [Mass/Vol]1.0 mg/dLNormal0.5 - 1.3 mg/dLRemisol KcnksZCT00 mL/min/1.73 j1Ykxobv>=59mL/min/1.73 o6Tszuebm ChemGlobulin (S) [Mass/Vol]3.4 g/dLNormal1.4 - 4.0 gm/dLRemisol ChemGlucose [Mass/Vol]98 mg/hCSytlzs70 - 199 mg/dLRemisol ChemPotassium [Moles/Vol]4.3 mmol/LNormal3.5 - 5.3 mmol/LRemisol ChemProtein [Mass/Vol]7.5 g/dLNormal6.0 - 7.8 gm/dLRemisol ChemSodium [Moles/Vol]137 mmol/OMwkhcc766 - 145 mmol/LRemisol ChemUrea nitrogen [Mass/Vol] 21 mg/dLNormal5 - 21 mg/dLRemisol ChemUrea nitrogen/Creatinine [Mass ratio]21 mg/bwQsim53 - 20Remisol ChemCMPon 61-97-1353Iyhalvy [Mass/Vol]4.1 g/dLNormal 3.3-5.0TrihealthComment on above:Performed By: #### 77661467, 9099802, 1727577, 8343043 ####[facility] [address] [place], [place] [address]Ffovgmz/Globulin (S) [Mass conc ratio]1.0Waegam3.1-2.2 TrihealthComment on above:Performed By: #### 36791428, 8416310, 0392037, 6628134 ####[address] [address]BMN [Catalytic activity/Vol]61 Int._Unit/DUuonvj33-59HtmxntTrihealthComment on above:Performed By: #### 43748214, 9921692, 6057746, 7115338 ####[address] [address]SXP No additional P-5'-P [Catalytic activity/Vol]17 Int._Unit/LNormal6-46TrihealthComment on above:Performed By: #### 76548551, 9532323, 8237956, 2753160 ####[address] [address]Vaedi gap [Moles/Vol]12 mmol/LNormal 6-16TrihealthComment on above:Performed By: #### 17736076, 3982167, 0737602, 2505663 ####[address] [address]IYC [Catalytic activity/Vol]18 Int._Unit/LNormal5-43TrihealthComment on above:Performed By: #### 39739222, 4471383, 0771811, 0096182 ####[address] [address]Kdnyrzdsr [Mass/Vol]0.4 mg/dLNormal0.0-1.1FDetwiler Memorial HospitalComment on above:Performed By: #### 56132202, 1998586, 7353433, 4873528 ####[address] [address]Qhbzlvj [Mass/Vol]9.8 mg/dLNormal8.9-11.1FDetwiler Memorial HospitalComment on above:Performed By: #### 03373763, 3606928, 6756062, 0038954 ####[address] [address]Uhhqacof [Moles/Vol]101 mmol/CFeatzx492-261LbzyorTrihealthComment on above: Performed By: #### 63564050, 9138829, 1786201, 5600553 ####[address] [address]UQ1 [Moles/Vol]28 mmol/LNormal 21-31TrihealthComment on above:Performed By: #### 16838277, 9475920, 9881247, 1049319 ####[address] [address]Vurxwrlbuv [Mass/Vol]1.0 mg/dLNormal0.5-1.3FDetwiler Memorial HospitalComment on above:Performed By: #### 74808156, 5749851, 7499492, 6188089 ####[address] [address]Okxfnpej (S) [Mass/Vol]3.4 g/dLNormal1.4-4.0[facility] Comment on above:Performed By: #### 58835251, 0766360, 9894309, 1516180 ####[address] [address] Glucose [Mass/Vol]98 mg/iNLniawa33-715LclxkkTrihealthComment on above:Performed By: #### [id number], [id number], [id number], [id number] ####[address] [address]Dkkkxnlni [Moles/Vol] 4.3 mmol/LNormal3.5-5.3FDetwiler Memorial HospitalComment on above:Performed By: #### [id number], [id number], [id number], [id number] ####[address] [address]Jvxqkek [Mass/Vol]7.5 g/dLNormal 6.0-7.8TrihealthComment on above:Performed By: #### [id number], [id number], [id number], [id number] ####[facility] [address] [place], [place] [address]Vqyrwp [Moles/Vol]137 mmol/CPfvwpm411-123KgkggpTrihealthComment on above:Performed By: #### [id number], [id number], 8861036, [id number] ####[facility] [address] [place], [place] [address]Azjg nitrogen [Mass/Vol]21 mg/dLNormal5-21[facility] Comment on above:Performed By: #### [id number], [id number], 6079008, [id number] ####[facility] [address] [place], [place] [address]Zmfo nitrogen/Creatinine [Mass ratio]21 No WnnqaWgxp95-29XldfgbTrihealth Comment on above:Performed By: #### [id number], [id number], 8861261, [id number] ####[facility] [address] [place] [address] COAGULATIONOrdered By: Yina Miles on 31-55-8555Lodoiq D-dimer FEU (PPP) [Mass/Vol]404 ng/mL DWELwfmhh266 - 500 ng/mL FEUFTMC Auto CoagComment on above: Interpretive Data: This assay is intended for use as [...] infections, pneumonia, severe skin infections Liver cirrhosis PregnancyConsent for Treatmenton 82-19-1906Tfdtpnn for Treatment [id number]#1.00TIFFNormalTrihealthD-Dimeron 23-41-7807Cqnyvs D-dimer FEU (PPP) [Mass/Vol]404 CD:[id number] Ymbmql537-541Plxuxi Mercy Medical CenterComment on above:Result Comment: This assay is intended for use as an aid in the diagnosis of DVT or PE. These condit ions cannot be excluded with certainty solely on [...] infections, pneumonia, severe skin infections Liver cirrhosis PregnancyPerformed By: #### [id number], 0051390, 0049325, 9823991 ####[facility] [address] [place], [place] [address]AEUBOOGWOKZfhnqrs By: SYSTEM SYSTEM on 21-32-9365Awipglipf/100 WBC (Bld)0.6 %Normal0.0 - 2.0 %Remisol HemeBasophils/Leukocytes Auto (Bld) [Pure # fraction]0.0 E9/LNormal0.0 - 0.2 E9/LRemisol HemeEosinophils (Bld) [#/Vol]0.2 E9/LNormal0.0 - 0.5 E9/LRemisol HemeEosinophils/100 WBC (Bld)3.0 %Normal0.0 - 8.0 %Remisol HemeErythrocyte distribution width (RBC) [Ratio]15.7 %High10.9 - 14.2 %Remisol HemeHematocrit (Bld) [Volume fraction]36.9 %Osksdo60.0 - 46.0 %Remisol HemeHemoglobin (Bld) [Mass/Vol]12.4 g/lIUufzon23.0 - 16.0 gm/dLRemisol HemeLymphocytes (Bld) [#/Vol] 1.4 E9/LNormal1.0 - 4.0 E9/LRemisol HemeLymphocytes/100 WBC (Bld)20.7 %Normal 14.0 - 50.0 %Remisol HemeMCH (RBC) [Entitic mass]29.5 zyBaunwd53.0 - 34.0 pg Remisol HemeMCHC (RBC) [Mass/Vol]33.6 g/uDQwxkyg02.4 - 36.0 gm/dLRemisol HemeMCV (RBC) [Entitic vol]87.9 tNOgjheg93.0 - 100.0 fLRemisol HemeMonocytes (Bld) [#/Vol]0.6 E9/LNormal0.2 - 1.0 E9/LRemisol HemeMonocytes/100 WBC (Bld)9.0 % Normal4.0 - 14.0 %Remisol HemeNeutrophils (Bld) [#/Vol]4.5 E9/LNormal2.0 - 7.5 E9/LRemisol HemeNeutrophils/100 WBC (Bld)66.7 %Kaawlp22.0 - 75.0 %Remisol Heme Platelet mean volume (Bld) [Entitic vol]10.3 fLNormal6.4 - 10.8 fLRemisol Heme Platelets (Bld) [#/Vol]196.0 E9/YUgemfi142.0 - 500.0 E9/LRemisol HemeRBC (Bld) [#/Vol]4.2 E12/LLow4.3 - 5.9 E12/LRemisol HemeWBC corrected for nucl RBC Auto (Bld) [#/Vol]6.8 E9/LNormal4.0 - 11.0 E9/LRemisol HemeeGFRon 63-54-5079yNTS75 mL/min/1.73 m2Cbmzgx>=59[facility] Hospitaler Mercy Medical CenterComment on above:Order Comment: Order added by Discern Expert.Performed By: #### [id number], 6533395, 7295639, 6417539 ####[facility]uel [facility] [address] [place], [place] [address]CX Abdomen/Pelvis w/ Contraston 75-17-3472EI Abdomen/Pelvis w/ ContrastExam Date/Time: 09/25/2023 20:23 EST Reason for Exam: [...] Vincenzo Colvin DO Transcribed by: NOHEMY Technologist: [facility] Report IMPRESSION: NO ACUTE ABDOMINOPELVIC PROCESS. CHOLELITHIASIS. [...] 11/24/2023 14:25 EST by Vincenzo Colvin DO JNormalTrihealthAuto Diffon 00-05-9458Oalibkbcs/100 WBC (Bld)0.6 %Normal 0.0-2.0TrihealthComment on above:Order Comment: Order Added by Discern Expert.Performed By: #### 1890039, 8915592, 6617249, 7939653, 59345346, 1475938 ####[facility] [address] [place], [place] [address]Zubrbxclj/Leukocytes Auto (Bld) [Pure # fraction]0.1 E9/LNormal0.0-0.2 TrihealthComment on above:Order Comment: Order Added by Discern Expert.Performed By: #### 4992524, 7636444, 2927038, 4068393, 42309405, 2985070 ####[facility] [address] [address]Lbvoofzhmta/100 WBC (Bld)1.5 %Normal0.0-8.0[facility] Comment on above:Order Comment: Order Added by Discern Expert.Performed By: #### 6865598, 1835126, 9815140, 5371223, 40404476, 5225339 ####[address] [address]Kjroycnnwsf/Leukocytes Auto (Bld) [Pure # fraction]0.1 E9/LNormal0.0-0.5FDetwiler Memorial HospitalComment on above:Order Comment: Order Added by Discern Expert.Performed By: #### 4749647, 1384292, 3200182, 2714828, 69403547, 6387547 ####[address] [address]Oittocrhexp/100 WBC (Bld)15.3 %Luzebw56.0-50.0TrihealthComment on above:Order Comment: Order Added by Discern Expert.Performed By: #### 9050704, 5573973, 2365650, 9912725, 26120327, 1518764 ####[address] [address]Ylzrbvaxefu/Leukocytes Auto (Bld) [Pure # fraction]1.5 E9/L Normal1.0-4.0TrihealthComment on above:Order Comment: Order Added by Discern Expert.Performed By: #### 1916375, 9085352, 1107227, 0952575, 60468945, 0149709 ####[address] [address]Pumnpxbpi/100 WBC (Bld)7.4 %Normal4.0-14.0TrihealthComment on above:Order Comment: Order Added by Discern Expert. Performed By: #### 1075477, 4679353, 7346677, 4639629, 38242284, 2926997 ####[facility] [address] [address] Monocytes/Leukocytes Auto (Bld) [Pure # fraction]0.7 E9/LNormal0.2-1.0TrihealthComment on above:Order Comment: Order Added by Discern Expert.Performed By: #### 3252878, 1298828, 3367660, 1437950, 48274078, 1820371 ####[address] [address] Neutrophils/100 WBC (Bld)75.2 %High36.0-75.0TrihealthComment on above:Order Comment: Order Added by Discern Expert.Performed By: #### 1720418, 8948702, 5064807, 1526804, 43571835, 8149774 ####[address] [address]Qnruszdqykm/Leukocytes Auto (Bld) [Pure # fraction]7.1 E9/LNormal2.0-7.5FDetwiler Memorial HospitalComment on above:Order Comment: Order Added by Discern Expert.Performed By: #### 9037945, 5771539, 1952493, 8211939, 82189915, 6007440 ####[address] [address]SPLwl 69-35-9504Ysktampfog [Mass/Vol]0.9 mg/dLNormal0.5-1.3FDetwiler Memorial HospitalComment on above: Performed By: #### 7923086, 1477400, 7345305, 0051892, 59116169, 0105946 ####[address] [address]Zlnv nitrogen [Mass/Vol]20 mg/dLNormal5-21TrihealthComment on above:Performed By: #### 3124858, 2764246, 1664361, 4293599, 93955582, 4119172 ####[address] [address]Xxhn nitrogen/Creatinine [Mass ratio]22 No EirvpUjdg39-65Ljsmny [facility] Comment on above:Performed By: #### 7479989, 8084241, 4619538, 1372784, 07768720, 2111614 ####[facility] [address] [place], [place] [address]Peheq gap [Moles/Vol]10 mmol/LNormal6-16TrihealthComment on above:Performed By: #### 9723899, 5076603, 1716074, 9979516, 27991533, 0057260 ####[facility] [address]acx[address] [place], [place] [address]Qxgirmb [Mass/Vol]10.4 mg/dLNormal8.9-11.1FDetwiler Memorial HospitalComment on above:Performed By: #### 1977384, 5489878, 0577413, 8714936, 03666078, 2478157 ####[facility] [address] [place], [place] [address]Ecotmhym [Moles/Vol]101 mmol/OUkhnsm485-226YdtlhsTrihealthComment on above:Performed By: #### 8456731, 5671267, 8447803, 3638336, 52739568, 7031948 ####[facility] [address] [place], [place] [address]FC2 [Moles/Vol]27 mmol/NUtvlzt15-72 TrihealthComment on above:Performed By: #### 3220527, 3482918, 5766103, 2240771, 10771918, 8748882 ####[facility] [address] [place], [place] [address]Ohhimte [Mass/Vol]155 mg/dLNormal 55-199TrihealthComment on above:Result Comment: If this glucose result represents a fasting glucose, interpretation should refer tothe following reference range: 55-99 mg/dLPerformed By: #### 0519773, 1790753, 1105154, 4120395, 16935791, 7510896 ####[facility] [address] [place], [place] [address]Bzsgmnali [Moles/Vol]4.0 mmol/LNormal 3.5-5.3FDetwiler Memorial HospitalComment on above:Performed By: #### 1813850, 8456717, 2365461, 9808604, 46656267, 0233729 ####[facility] [address] [place], [place] [address]Sbrnhr [Moles/Vol]134 mmol/LLow 135-145TrihealthComment on above:Performed By: #### 9845234, 2732821, 8475727, 1586602, 06418493, 6193040 ####[facility] [address] [place], [place] [address]RXU w/ Auto Diffon 09-25-2023 Erythrocyte distribution width (RBC) [Ratio]15.3 %High10.9-14.2FDetwiler Memorial HospitalComment on above:Performed By: #### 8609509, 0975204, 2531679, 3832549, 37521009, 5312365 ####[facility] [address] [place], [place] [address]Tiazlqxnkd (Bld) [Volume fraction]38.4 %Normal 34.0-46.0TrihealthComment on above:Performed By: #### 4625645, 8930023, 1055740, 8439566, 78789518, 6403891 ####[facility] [address] [place], [place] [address]Nnwrkdpbjt (Bld) [Mass/Vol]13.0 g/dL Nxuejv36.0-16.0TrihealthComment on above:Performed By: #### 8070820, 1952036, 1698481, 5788564, 38603589, 1599684 ####[facility] [address]wjx[address] [place], [place] [address]OWN (RBC) [Entitic mass]29.4 gvYvaaan43.0-34.0TrihealthComment on above:Performed By: #### 0437157, 7087380, 1470306, 5514248, 69837696, 5148474 ####[address] [place], [place] [address]LJXA (RBC) [Mass/Vol]33.9 g/dL Qdkebd25.4-36.0TrihealthComment on above:Performed By: #### 6904948, 9958229, 4749135, 5580517, 92108260, 8476211 ####[address] [address]YCZ (RBC) [Entitic vol]86.6 fL Mkuash70.0-100.0TrihealthComment on above:Performed By: #### 8179667, 5523417, 6586832, 4588389, 55705777, 4283150 ####[address] [address]Cqtciuhn mean volume (Bld) [Entitic vol]9.5 fLNormal6.4-10.8TrihealthComment on above: Performed By: #### 2469301, 3224205, 9989372, 6892221, 83974458, 1717410 ####[address] [address] Platelets (Bld) [#/Vol]207.0 E9/TJmmtyj132.0-500.0[facility] Comment on above:Performed By: #### 1605261, 4408648, 9316113, 5482607, 18912228, 9665190 ####[address] [address]PBA (Bld) [#/Vol]4.4 E12/LNormal4.3-5.9TrihealthComment on above:Performed By: #### 3118177, 9261839, 1686719, 8053542, 27507194, 4332375 ####[address] [address]INZ corrected for nucl RBC Auto (Bld) [#/Vol]9.5 E9/LNormal 4.0-11.0Fisher Mercy Medical CenterComment on above:Performed By: #### 0306605, 0324223, 7681161, 5789181, 35072794, 5246884 ####[facility] [address] Jadyn[address] hospitalsandie[place], [place] [address]BZHXUOUBCIgnmkle By: SYSTEM SYSTEM on 74-52-6546Zydqfzn [Mass/Vol]3.9 g/dLNormal3.3 - 5.0 gm/dLFTMC Remisol Albumin/Globulin [Mass ratio]1.0 {ratio}Low1.1 - 2.2[facility] RemisolALP [Catalytic activity/Vol]66 [iU]/aFndicn47 - 98 Int._Unit/LFTMC RemisolALT No additional P-5'-P [Catalytic activity/Vol]25 [iU]/dNormal6 - 46 Int._Unit/LFTMC Remisol Anion gap [Moles/Vol]10 mmol/LNormal6 - 16 mEq/LFTMC RemisolAST [Catalytic activity/Vol]25 [iU]/dNormal5 - 43 Int._Unit/LFTMC RemisolBilirubin [Mass/Vol] 0.2 mg/dLNormal0.0 - 1.1 mg/dLFTMC RemisolBilirubin.direct [Mass/Vol]0.1 mg/dL Normal0.1 - 0.4 mg/dLFTMC RemisolBilirubin.indirect [Mass or moles/Vol]0.1 mg/dL Normal0.1 - 0.9 mg/dLFTMC RemisolCalcium [Mass/Vol]10.4 mg/dLNormal8.9 - 11.1 mg/dLFTMC RemisolChloride [Moles/Vol]101 mmol/UEjgomg284 - 111 mmol/LFTMC RemisolCO2 [Moles/Vol]27 mmol/XFrunqn88 - 31 mmol/LFTMC RemisolCreatinine [Mass/Vol]0.9 mg/dLNormal0.5 - 1.3 mg/dLFTMC RemisolGFR/1.73 sq M.predicted among non-blacks MDRD (S/P/Bld) [Vol rate/Area]74 mL/min/1.73 z8Uzldmb >=59mL/min/1.73 m2[facility] Chem SComment on above:Interpretive Data: Chronic kidney disease could be indicated at eGFR's of less than 60 mL/min/1.73m2. Kidney failure is indicated at less than 15 mL/min/1.73m2.Globulin (S) [Mass/Vol]4.0 g/dLNormal1.4 - 4.0 gm/dLMERCY [facility]OS[facility] RemisolGlucose [Mass/Vol]155 mg/pGHrjoey93 - 199 mg/dLMERCY HOSPITAL [facility] RemisolComment on above:Interpretive Data: If this glucose result represents a fasting glucose, interpretation should referto the following reference range: 55-99 mg/dLLipase [Catalytic activity/Vol]39 U/CCpyhiv46 - 58 unit/LFTMC RemisolPotassium [Moles/Vol]4.0 mmol/LNormal3.5 - 5.3 mmol/LFTMC RemisolProtein [Mass/Vol]7.9 g/dLHigh6.0 - 7.8 gm/dLMERCY [facility] RemisolSodium [Moles/Vol]134 mmol/LIab291 - 145 mmol/LFTMC RemisolUrea nitrogen [Mass/Vol]20 mg/dLNormal5 - 21 mg/dLMERCY HOS[facility] RemisolUrea nitrogen/Creatinine [Mass ratio]22 mg/mg High10 - 20[facility] RemisolConsent for Treatmenton 05-74-0068Msqnhnk for Treatment [id number]#1.00[facility] LimaDischarge Instructionson 36-46-2314Tpniubwct Instructions [id number]#1.00[facility] Clinical Summaryon 39-55-6412YX Clinical Summary [address] [address] ED Clinical Summary Person Information Name: TERESA SISSHANNON [place] Age: 57 Years : 1965 Sex: Female Language: Zimbabwean PCP: BREA JJ CNP Marital Status: Visit [...] 09/25/2023 21:57:44 09/25/2023 21:57:44 09/25/2023 21:57:44 ADDRESS: [address] [place] [address] [address] [facility] [id number] PHYS DOC NOTES: MEDICAL INFORMATION: Prescriptions Given: [facility], [address] [place], [place] [id number], [phone] dicyclomine (Bentyl 10 mg Cap) 1 Capsules By Mouth 4 times a day for 7 Days. Refills: 0. ondansetron (Zofran ODT 4 mg Tab-Dis) 1 Tablets By Mouth every 8 hours. Refills: 0. Medications to Continue with No Changes Other Medications albuterol (Ventolin HFA 90 mcg/inh Aerosol-Adpt) 1 Puffs Inhalation 4 times a day as needed for wheezing. albuterol-ipratropium (albuterol-ipratropium Inh Debby 3 mL UD) 3 Milliliter [...] day. fluticasone nasal (fluticasone Nasal 0.05 mg/inh [place]) 2 Sprays Nasal Inhalation every day. each nostril. formoterol-glycopyrrolate (Bevespi Aerosphere 9 mcg-4.8 mcg/inh inhalation aerosol) 2 Puffs Inhalation 2 times a day. furosemide (furosemide 20 mg Tab) 1 Tablets By Mouth every day. gabapentin (gabapentin 300 mg Cap) 1 Capsules By Mouth 2 times a day. hydrochlorothiazide-lisinopril (hydrochlorothiazide-lisinopril 25 mg-20 mg Tab) 1 Tablets By Mouth every day. lamotrigine (lamotrigine 25 mg Tab) 1 Tablets By Mouth 2 times a day. Misc Prescription (ATORVASTATIN CALCIUM 40 MG TABLET) 0. multivitamin (Daily Harvinder oral tablet) 1 Tablets By Mouth every day. pioglitazone (pioglitazone 15 mg Tab) 1 Tablets By Mouth every day. potassium chloride (Potassium Chloride (Isi-Mydq-Fti 10) 10 mEq oral tablet, extended release) pramipexole (pramipexole 0.5 mg oral tablet) 1 Tablets By Mouth 3 times a day. theophylline (theophylline 300 mg ER Tab) 1 Tablets By Mouth every 12 hours. trazodone (traZODONE 50 mg Tab) 1 Tablets By Mouth once a day (at bedtime). PATIENT EDUCATION INFORMATION: Instructions: Cholelithiasis Follow up: With: Address: [facility], [address] [place] [phone] Business (1) In 3 days 09/28/2023 With: Address: When: BREA JJ [address] [place], [place] [phone] Business (1) In 3 days DIAGNOSIS: AP (abdominal pain); Cholelithiasis; N&V (nausea and vomiting)[facility] CenterED Note-Physicianon [id number] Note-PhysicianBasic Information Time Seen: Moses Fischer DO 09/25/2023 19:14 Chief Complaint pt c\o abd pain and NV x2 hours History of Present Illness HPI: Patient is a 57-year-old female past medical history of COPD on oxygen, PE on Eliquis, and CHFwho presents the ED for abdominal pain nausea and vomiting. Patient states this for started 2 hoursago and has been constant. The pain is [...] and Complexity of Problems Differential Diagnosis: [] [facility] Data External documents reviewed: N/A My [...] day(s), # 28 cap(s), Refills(s) 0, Pharmacy: [facility], 175, cm, 09/25/23 18:25:00 EST, Height/Length [...] Clinic In 3 days 09/28/2023 EST [address] [facility] 3, 2nd Floor, [address] [place] [phone] Business (1) Additional Instructions: BREA JJ In 3 days [address] [place] [address] [phone] Business (1) Additional Instructions: Patient Education Cholelithiasis Problem List/Past Medical History Ongoing Smoker Historical No qualifying data Procedure/Surgical History delivery (05/05/1987), delivery (06/20/1984), Cyst, Knee. Medications Inpatient morphine 4 mg/mL Inj, 4 mg= 1 mL, IV Push, Once Zofran 4 mg/2 mL Injection, 4 mg= 2 mL, IV Push, Once Home albuterol- (more content not included)...[facility] Comment on above:Result Comment: Electronically Signed By: Moses Fischer DO\.br\Date and Time Signed: 09/25/23 21:52 ASHA Patient Education Noteon 51-45-7459FO Patient Education NoteGastroenterology Cholelithiasis Cholelithiasis is a disease in which [...] make bile. This can happenif the bile: ? Has too much bilirubin. [...] yellow (jaundice). This usually happens when a stonehas blocked bile from passing through the common [...] see the radioactive material. ? Endoscopic retrograde cholangiopancreatogram. This involves inserting a [...] ? Medicines to break (more content not included)...[facility] Patient Summaryon 13-55-1908DO Patient Summary [place] [id number] Patient Discharge Instructions Person Information Name: SIS MOORE Age: 57 Years Arrival Date: 09/25/2023 18:09:44 Discharge Diagnosis: AP (abdominal pain); Cholelithiasis; N&V (nausea and vomiting) Primary Care Physician: BREA JJ CNP Provider Information Primary Provider: Moses Fischer DO Advanced Compensation Programs Manager:None The exam and treatment you received in the Emergency Department were for an urgent problem and are not intended as complete care. It is important that you follow up with a doctor, nurse practitioner,or physician?s assistant associate professor for ongoing care. If your symptoms become worse or you do not improve as expected and you are unable to reach your usual health care provider, you should return to the Emergency Department. We are available 24 hours a day. SIS MOORE has been given the following list of patient education materials, prescriptions and follow-up instructions: Follow-up Instructions: With: Address: When: [facility] [address] [place] [address] 3, 2nd Floor, [address] [place] [phone] Business (1) In 3 days 09/28/2023 With: Address: When: BREA JJ [address] [place], [place] [phone] [facility] (1) In 3 days In the event that this physician does not participate in your insurance network, please consult with your insurance company to find a nearby participating provider. Patient Education Materials: Cholelithiasis A MESSAGE TO ALL PATIENTS REGARDING OPIOIDS PRESCRIPTION OPIOIDS: WHAT YOU NEED TO KNOW Prescription opioids can be used to help relieve fkhfxhsu-ag-kszbog pain and are often prescribed following a [...] and have fewer risks and side effects. Optionsmay include: ? Pain relievers such as acetaminophen, [...] unused prescription opioids: Find your community drug take- back program or yourpharmacy mail-back program, or flush them down the toilet, following guidance from the Food and Drug Administration (www.fda.gov/Drugs/ResourcesForYou). ? Visit www.cdc.gov/drugoverdose to learn about the risks of opioids abuse and overdos (more content not included)...[facility] HEMATOLOGYOrdered By: SYSTEM SYSTEM on 88-69-4511Sqpjpiklf/100 WBC (Bld)0.6 % Normal0.0 - 2.0 %[facility] HemeAutoSSBasophils/Leukocytes Auto (Bld) [Pure # fraction]0.1 E9/LNormal0.0 - 0.2 E9/LFTMC HemeAutoSSEosinophils/100 WBC (Bld)1.5 %Normal0.0 - 8.0 %[facility] HemeAutoSSEosinophils/Leukocytes Auto (Bld) [Pure # fraction]0.1 E9/LNormal0.0 - 0.5 E9/LFTMC HemeAutoSSLymphocytes/100 WBC (Bld) 15.3 %Kiyzuf58.0 - 50.0 %[facility] HemeAutoSSLymphocytes/Leukocytes Auto (Bld) [Pure # fraction]1.5 E9/LNormal1.0 - 4.0 E9/LFTMC HemeAutoSSMonocytes/100 WBC (Bld)7.4 %Normal4.0 - 14.0 %[facility] HemeAutoSSMonocytes/Leukocytes Auto (Bld) [Pure # fraction]0.7 E9/LNormal0.2 - 1.0 E9/LFTMC HemeAutoSSNeutrophils/100 WBC (Bld) 75.2 %High36.0 - 75.0 %[facility] HemeAutoSSNeutrophils/Leukocytes Auto (Bld) [Pure # fraction]7.1 E9/LNormal2.0 - 7.5 E9/LFTMC HemeAutoSSHEMATOLOGYOrdered By: Diana Sanders on 50-52-6641Ehqpystemei distribution width (RBC) [Ratio]15.3 % High10.9 - 14.2 %[facility] HemeAutoSSHematocrit (Bld) [Volume fraction]38.4 %Normal 34.0 - 46.0 %[facility] HemeAutoSSHemoglobin (Bld) [Mass/Vol]13.0 g/vITlseag86.0 - 16.0 gm/dLFTMC HemeAutoSSMCH (RBC) [Entitic mass]29.4 nnWpanvn91.0 - 34.0 pgFTMC HemeAutoSSMCHC (RBC) [Mass/Vol]33.9 g/eCKlwbrr24.4 - 36.0 gm/dLMER[facility] HemeAutoSS MCV (RBC) [Entitic vol]86.6 rEPyvnrh93.0 - 100.0 [facility] HemeAutoSSPlatelet mean volume (Bld) [Entitic vol]9.5 fLNormal6.4 - 10.8 fLMERCY HOSPITAL LOGAN COUNTY [facility] HemeAutoSSPlatelets (Bld) [#/Vol]207.0 E9/CKarhlw321.0 - 500.0 E9/[facility] HemeAutoSSRBC (Bld) [#/Vol] 4.4 E12/LNormal4.3 - 5.9 E12/[facility] HemeAutoSSWBC corrected for nucl RBC Auto (Bld) [#/Vol]9.5 E9/LNormal4.0 - 11.[address] HemeAutoSSHep Func Panelon 29-75-3309Uzfnsfu [Mass/Vol]3.9 g/dLNormal3.3-5.0[facility] Comment on above:Performed By: #### 1093035, 4726165, 2411423, 9653327, 31457965, 4280831 ####[address] [place], [place] [address]Ggvavdp/Globulin (S) [Mass conc ratio]1.0Low1.1-2.2FDetwiler Memorial HospitalComment on above:Performed By: #### 9250469, 0205152, 0494904, 7448505, 19987875, 9164086 ####[facility] [address] [place], [place] [address]MGY [Catalytic activity/Vol]66 Int._Unit/LAdhesm63-02PbijzcTrihealthComment on above:Performed By: #### 4301755, 4031531, 4644185, 2892345, 80488003, 3168982 ####[facility] [address] [place], [place] [address]ZVS No additional P-5'-P [Catalytic activity/Vol]25 Int._Unit/LNormal6-46TrihealthComment on above:Performed By: #### 5318681, 1718262, 5487494, 7713269, 75219221, 8147591 ####[address] [address]XGF [Catalytic activity/Vol]25 Int._Unit/LNormal5-43TrihealthComment on above:Performed By: #### 5162045, 7022284, 0176797, 9333837, 33733943, 2952199 ####[address] [address]Bbcepelrd [Mass/Vol]0.2 mg/dLNormal 0.0-1.1FDetwiler Memorial HospitalComment on above:Performed By: #### 9996558, 8151869, 7372012, 6621132, 14340766, 0050616 ####[address] [address]Ocxcosblh.direct [Mass/Vol]0.1 mg/dL Normal0.1-0.4FDetwiler Memorial HospitalComment on above:Performed By: #### 0664532, 0030511, 9106061, 7464059, 84003978, 2141620 ####[address] [address]Aaiimxidv.indirect [Mass or moles/Vol]0.1 mg/dLNormal0.1-0.9TrihealthComment on above: Performed By: #### 5463516, 5023895, 3762364, 3911001, 11928212, 5586665 ####[address] [address] Globulin (S) [Mass/Vol]4.0 g/dLNormal1.4-4.0TrihealthComment on above:Performed By: #### 7415487, 6251281, 6091414, 4586314, 10362358, 7339552 ####[address] [address]Vazezme [Mass/Vol]7.9 g/dLHigh6.0-7.8TrihealthComment on above:Performed By: #### 7036475, 8649585, 9558598, 1451216, 20174619, 2809383 ####[facility] [address] [place] [address] Lipase Levelon 05-75-8647Aagfjd [Catalytic activity/Vol]39 U/FOgturz34-68ZfftmxTrihealthComment on above:Performed By: #### 5884595, 1613100, 9789571, 3350979, 51708385, 3824735 ####[address] [place], [place] [address]Duwxdhj Recordon 59-75-4809Zchpbyv [id number]#1.00TIFOhioHealth Riverside Methodist HospitalRAD - Preliminary Cat Scan Reporton [id number] - Preliminary Cat Scan [id number]#1.00TIFOhioHealth Riverside Methodist HospitalUA With Cult Reflexon 44-04-5581Sdmfuaibv Ql (U)Negative NormalNegativeTrihealthComment on above:Performed By: #### 99029859 ####[address] [address]Bohtlwv (U)CLEARNormalClearTrihealthComment on above: Performed By: #### 03386988 ####[address] [address]Yfwxg (U)YELLOWNormalYellowTrihealthComment on above:Performed By: #### 51611506 ####[address] [address]Xzgrzusehz cells.squamous LM.HPF (Urine sed) [#/Area]1-6Ilpsij6-0ZvuzdvDetwiler Memorial HospitalComment on above:Performed By: #### [id number] ####[address] [address]Rfprbiu Test strip (U) [Mass/Vol]NegativeNormal NegativeTrihealthComment on above:Performed By: #### [id number] ####[address] [address] Hemoglobin Ql (U)NegativeNormalNegativeTrihealthComment on above:Performed By: #### [id number] ####[address] [address]Kluojey (U) [Mass/Vol]NegativeNormalNegativeTrihealthComment on above:Performed By: #### [id number] ####[address] [address] [place].plasma/[place].RBC (Bld) [Mass ratio]3-0Gindfo3-1Nksuax [facility] Medical CenterComment on above:Performed By: #### [id number] ####[address] [address]Drvlywr Ql (U)NegativeNormal [facility] HospitalComment on above:Performed By: #### [id number] ####[address] [address]yO (U)6.5 [pH]Invalid Interpretation Code5.0-9.0TrihealthComment on above:Performed By: #### [id number] ####[address] [address]Kdqtbwq (U) [Mass/Vol]NegativeNormal NegativeTrihealthComment on above:Performed By: #### [id number] ####[address] [address] Specific gravity (U) [Rel density]<=1.005Invalid Interpretation Code1.005-1.030 TrihealthComment on above:Performed By: #### [id number] ####[address] [address]Dysf of Urine collection methodClean CatchNormalCrawley Memorial Hospitaler [facility] CenterComment on above:Performed By: #### [id number] ####Miguel A [facility] [address] [place], [place] [address]Umxvitixteqc Qn (U)0.2 {Nayla'U}/dLNormal0.0-1.0 TrihealthComment on above:Performed By: #### [id number] ####Miguel A [address] [address]AMP Auto Ql (U)NegativeNormalNegativeTrihealthComment on above: Performed By: #### [id number] ####[address] [address] [address]DJE LM.HPF (Urine sed) [#/Area]0-7Ohyjgn0-3Ytzzfm Mercy Medical CenterComment on above:Performed By: #### [id number] ####Miguel A [address] [address]DBJGPZYJVH Ordered By: Tanya Nathan on 02-02-3060Sajqlizkq Ql (U)Negative (09/25/23 9:53 PM)NormalNegativeMER[facility] UA Auto SSClarity (U)Clear (09/25/23 9:53 PM)NormalClearFMCBRIDE ORTH[facility] [place] UA Auto SSColor (U)Yellow (09/25/23 9:53 PM)NormalYellowMERCY HOSPITAL [facility] UA Auto SSEpithelial cells.squamous LM.HPF (Urine sed) [#/Area]0-2 /HPFNormal0-2/HPFMERCY HOSPITAL [facility] UA Auto SSGlucose Test strip (U) [Mass/Vol]Negative (09/25/23 9:53 PM)NormalNegativeMER[facility] UA Auto SSHemoglobin Ql (U)Negative (09/25/23 9:53 PM)NormalNegativeMER[facility] UA Auto SSKetones (U) [Mass/Vol]Negative (09/25/23 9:53 PM)NormalNegativeMER[facility] UA Auto SSLithium.plasma/[place].RBC (Bld) [Mass ratio]0-3 /HPFNormal0-3/HPFMERCY HOSPITAL [facility] UA Auto SSNitrite Ql (U)Negative (09/25/23 9:53 PM)NormalNegativeMER[facility] UA Auto SSpH (U)6.5 *NA* (09/25/23 9:53 PM)Invalid Interpretation Code5.0 - 9.0[facility] UA Auto SSProtein (U) [Mass/Vol]Negative (09/25/23 9:53 PM)NormalNegativeMER[facility] UA Auto SSSpecific gravity (U) [Rel density]<=1.005 *NA* (09/25/23 9:53 PM)Invalid Interpretation Code1.005 - 1.030[facility] UA Auto SSUA Spec DescClean Catch (09/25/23 9:53 PM)NormalMERCY [facility]OS[facility]ITAL [facility] UA Auto SSUrobilinogen Qn (U)0.9922951 {Nayla'U}/dLNormal0.0 - 1.0 EU/dLMERCY HOSPITAL [facility] UA Auto SSWBC Auto Ql (U)Negative (09/25/23 9:53 PM)NormalNegativeMER[facility] UA Auto SSWBC LM.HPF (Urine sed) [#/Area]0- 5 /HPFNormal0-5/HPFMERCY HOSPITAL [facility] UA Auto SSeGFRon 77-80-6753TKV/1.73 sq M.predicted among non-blacks MDRD (S/P/Bld) [Vol rate/Area]74 mL/min/1.73 n5Dxbwor>=59TrihealthComment on above:Order Comment: Order added by Discern Expert.Result Comment: Chronic kidney disease could be indicated at eGFR's of less than 60 mL/min/1.73m2. Kidney failure is indicated at less than 15 mL/min/1.73m2.Performed By: #### [id number], 1454123, 0825433, 6056927, 85810752, 2719290 ####Miguel A [facility] [address] [place], [place] [address]Chvk Diffon 42-82-7561Ebtasuuoc/100 WBC (Bld)0.2 %Normal0.0-2.0TrihealthComment on above:Order Comment: Order Added by Discern Expert. Performed By: #### 9591704, 60982759, 9984060, 5607271, 40438928, 65167360, 21129408, 6728125 ####[address] [place], [place] [address]Wklhnbhgn/Leukocytes Auto (Bld) [Pure # fraction]0.0 E9/L Normal0.0-0.2FDetwiler Memorial HospitalComment on above:Order Comment: Order Added by Discern Expert.Performed By: #### 3240680, 21508425, 4742972, 2118310, 25337272, 61656021, 31612521, 8372179 ####[address] [address]Ozhplbwhwty/100 WBC (Bld)0.8 %Normal 0.0-8.0TrihealthComment on above:Order Comment: Order Added by Discern Expert.Performed By: #### 2735998, 06732244, 9588947, 2959358, 05122229, 89782800, 35253121, 7908471 ####[address] [address]Ibcecczpqoz/Leukocytes Auto (Bld) [Pure # fraction] 0.1 E9/LNormal0.0-0.5FDetwiler Memorial HospitalComment on above:Order Comment: Order Added by Discern Expert.Performed By: #### 1163742, 65023836, 9437307, 2970570, 33025446, 80317204, 67774756, 3105736 ####[address] [place], [place] [address]Gcrwfvigrzz/100 WBC (Bld)11.3 %Low 14.0-50.0TrihealthComment on above:Order Comment: Order Added by Discern Expert.Performed By: #### 2020729, 91934221, 8690853, 0236020, 18634013, 05263945, 92658853, 6587821 ####[address] [place], [place] [address]Oxpvmeizqmz/Leukocytes Auto (Bld) [Pure # fraction]1.0 E9/LNormal1.0-4.0TrihealthComment on above:Order Comment: Order Added by Discern Expert.Performed By: #### 6692267, 33908024, 7275184, 2329954, 56129350, 16889235, 13015879, 0345949 ####[address] [address]Swqjoqogt/100 WBC (Bld)6.9 %Normal4.0-14.0TrihealthComment on above:Order Comment: Order Added by Discern Expert.Performed By: #### 4200869, 00946661, 3259619, 8534088, 27568874, 97772521, 56834937, 9563197 ####Grady [address] [address]Warziygrf/Leukocytes Auto (Bld) [Pure # fraction]0.6 E9/LNormal0.2-1.0TrihealthComment on above:Order Comment: Order Added by Discern Expert.Performed By: #### 4225078, 12081568, 0106130, 9880330, 93730023, 62350211, 27143433, 0152958 ####[place] [address] [place] [address] Neutrophils/100 WBC (Bld)80.8 %High36.0-75.0TrihealthComment on above:Order Comment: Order Added by Discern Expert.Performed By: #### 6457698, 90016811, 5926388, 5171411, 64696915, 22004916, 09658982, 0693630 ####[address] [place] [address] Neutrophils/Leukocytes Auto (Bld) [Pure # fraction]7.1 E9/LNormal2.0-7.5FDetwiler Memorial HospitalComment on above:Order Comment: Order Added by Discern Expert.Performed By: #### 9875431, 25785341, 1249650, 8988627, 97553253, 78194966, 84967184, 2729540 ####[facility] [address] [place], [place] [address]YYAhi 39-30-4574Jnchhuytja [Mass/Vol]1.2 mg/dL Normal0.5-1.3FDetwiler Memorial HospitalComment on above:Performed By: #### 5827899, 46106916, 5882565, 9121141, 68760946, 28897714, 78067121, 0469968 ####[facility] [address] [place], [place] [address]Dtev nitrogen [Mass/Vol]26 mg/dLHigh5-21TrihealthComment on above: Performed By: #### 7054189, 61647056, 2567751, 7623215, 29900567, 28851784, 84267487, 0827320 ####[facility] [address] [place], [place] [address]Kozr nitrogen/Creatinine [Mass ratio]22 No NkjluIyds85-97 TrihealthComment on above:Performed By: #### 6630063, 44160921, 9151667, 7075654, 48819149, 35861122, 13814303, 5958189 ####[facility] [address] [place], [place] [address]Zerdu gap [Moles/Vol]13 mmol/LNormal6-16TrihealthComment on above: Performed By: #### 6747421, 24042598, 4789933, 0600647, 08927423, 02619977, 46073553, 0232827 ####[facility] [address] [place], [place] [address]Fahvrtk [Mass/Vol]9.9 mg/dLNormal8.9-11.1FDetwiler Memorial HospitalComment on above:Performed By: #### 6491351, 94927357, 4753371, 6059706, 19780672, 25857470, 52793674, 3298156 ####[facility] [address] [place], [place] [address]Aakltcqk [Moles/Vol]99 mmol/LLow 101-111TrihealthComment on above:Performed By: #### 6569391, 63411089, 8590162, 9848530, 90527088, 50546798, 95618409, 9640634 ####[facility] [address] [place], [place] [address]PY5 [Moles/Vol] 28 mmol/FHbfmem44-69PlltfpTrihealthComment on above:Performed By: #### 4034837, 01961371, 0285121, 9525893, 34780484, 70476813, 94512579, 5552049 ####[facility] [address] [place] [address] Glucose [Mass/Vol]126 mg/oHUmhgcl46-524NaldhiTrihealthComment on above:Result Comment: If this glucose result represents a fasting glucose, interpretation should refer tothe following reference range: 55-99 mg/dL Performed By: #### 9883048, 79739250, 3797363, 9339146, 83987141, 34525303, 42920707, 3615344 ####[facility] [address] [place], [place] [address]Vyihzawgq [Moles/Vol]4.0 mmol/LNormal3.5-5.3FDetwiler Memorial HospitalComment on above:Performed By: #### 6039296, 76453531, 7533219, 9058976, 22482428, 88005881, 86866570, 0386156 ####[facility] [address] [place], [place] [address]Itpbaz [Moles/Vol]136 mmol/LNormal 135-145TrihealthComment on above:Performed By: #### 2101077, 75972438, 2266317, 0965232, 93146739, 52914176, 87542736, 6085439 ####[address] [place], [place] [address]WMFoj 11-09-2023 Int Ctr BNPPassNormalTrihealthComment on above:Performed By: #### 1692120, 55046170, 6147377, 1770821, 30840113, 00739146, 88136840, 8650839 ####[facility] [address] [place] [address] Natriuretic peptide B (Bld) [Mass/Vol]21 pg/mLNormal5-80TrihealthComment on above:Performed By: #### 6999585, 64615378, 3293719, 3571250, 21483901, 05541057, 96083239, 4886394 ####[address] [place], [place] [address]MNF w/ Auto Diffon 09-08-2023 Erythrocyte distribution width (RBC) [Ratio]15.1 %High10.9-14.2FDetwiler Memorial HospitalComment on above:Performed By: #### 9400325, 43159073, 8991658, 6250294, 97649621, 04875466, 66636258, 8499700 ####[address] [place], [place] [address]Tenwmkzigz (Bld) [Volume fraction] 38.8 %Pmabih61.0-46.0TrihealthComment on above:Performed By: #### 6308693, 71615975, 6161500, 5801894, 18924195, 69573352, 38080137, 2913215 ####[address] [place] [address] Hemoglobin (Bld) [Mass/Vol]13.0 g/nBAxcjwd11.0-16.0[facility] Comment on above:Performed By: #### 7077549, 95281846, 5337836, 8825256, 90417659, 54517239, 48740534, 1478565 ####[address] [place], [place] [address]KUV (RBC) [Entitic mass]29.4 pgNormal 27.0-34.0Fisher Julito Medical CenterComment on above:Performed By: #### 8937286, 23058138, 8925461, 8130727, 22826939, 05646497, 27572289, 8212803 ####[facility] [address] [place], [place] [address]DJZW (RBC) [Mass/Vol]33.5 g/qLKzyqjh34.4-36.0TrihealthComment on above: Performed By: #### 2296882, 51325392, 2827906, 7799188, 14667800, 67974791, 10054669, 4751363 ####Grady [address] [address]IOY (RBC) [Entitic vol]87.6 dCVkppcw17.0-100.0TrihealthComment on above:Performed By: #### 4184797, 45461503, 4497813, 8484577, 06492449, 67379330, 30692782, 3012604 ####[address] [address]Fpigrvos mean volume (Bld) [Entitic vol]10.7 fLNormal6.4-10.8TrihealthComment on above:Performed By: #### 5616535, 16311195, 9735837, 1754516, 52482692, 70498347, 25833569, 9992733 ####Grady [address] [address]Szbrgoojk (Bld) [#/Vol]195.0 E9/OKvuzns910.0-500.0TrihealthComment on above:Performed By: #### 3907460, 90330834, 6381766, 3634922, 74259599, 27317035, 08933134, 1218561 ####[address] [address]GOI (Bld) [#/Vol]4.4 E12/LNormal 4.3-5.9TrihealthComment on above:Performed By: #### 2129749, 80782452, 1761865, 0225746, 90555943, 24893838, 14148391, 6870102 ####[facility] [address] [place], [place] [address]AVR corrected for nucl RBC Auto (Bld) [#/Vol]8.8 E9/LNormal4.0-11.0[facility] Comment on above:Performed By: #### 8497277, 94242275, 7208797, 9557557, 85572008, 01619985, 89555709, 3290411 ####[facility] [address] [place], [place] [address]MAEDCCNNKYyndwmv By: SYSTEM SYSTEM on 62-25-6106Ntznhllp I.cardiac [Mass/Vol]4.20 pg/mLLow10.10 - 27.10 pg/mLMER[facility] RemisolComment on above:Interpretive Data: The 95% CI (Confidence Interval) PPV (Positive Predictive Value) for myocardial infarction in females is 38 pg/mL, in males 51 pg/mL. The results should be used in conjunction withclinical conditions of myocardial infarction. (Access High Sensitivity Troponin I Instructions For Use, Claude Raulito, May 2018)Albumin [Mass/Vol]3.8 g/dLNormal3.3 - 5.0 gm/dLFT Remisol Albumin/Globulin [Mass ratio]0.8 {ratio}Low1.1 - 2.2[facility] RemisolALP [Catalytic activity/Vol]68 [iU]/kQnxlxc57 - 98 Int._Unit/LFTMC RemisolALT No additional P-5'-P [Catalytic activity/Vol]18 [iU]/dNormal6 - 46 Int._Unit/LFTMC Remisol Anion gap [Moles/Vol]13 mmol/LNormal6 - 16 mEq/LFTMC RemisolAST [Catalytic activity/Vol]20 [iU]/dNormal5 - 43 Int._Unit/LFTMC RemisolBilirubin [Mass/Vol] 0.4 mg/dLNormal0.0 - 1.1 mg/dLFTMC RemisolBilirubin.direct [Mass/Vol]mg/dLNormal 0.1 - 0.4 mg/dLFTMC RemisolBilirubin.indirect [Mass or moles/Vol]Unable to Calculate mg/dLInvalid Interpretation Code0.1 - 0.9 mg/dLFTMC RemisolCalcium [Mass/Vol]9.9 mg/dLNormal8.9 - 11.1 mg/dLFTMC RemisolChloride [Moles/Vol]99 mmol/JRze582 - 111 mmol/LFTMC RemisolCO2 [Moles/Vol]28 mmol/WLmnqpt92 - 31 mmol/LFTMC RemisolCreatinine [Mass/Vol]1.2 mg/dLNormal0.5 - 1.3 mg/dLFTMC RemisolGFR/1.73 sq M.predicted among non-blacks MDRD (S/P/Bld) [Vol rate/Area]52 mL/min/1.73 m2Low>=59mL/min/1.73 m2FTMC Chem SComment on above:Interpretive Data: Chronic kidney disease could be indicated at eGFR's of less than 60 mL/min/1.73m2. Kidney failure is indicated at less than 15 mL/min/1.73m2. Globulin (S) [Mass/Vol]4.5 g/dLHigh1.4 - 4.0 gm/dLFTMC RemisolGlucose [Mass/Vol] 126 mg/dEBecxku95 - 199 mg/dLFTMC RemisolComment on above:Interpretive Data: If this glucose result represents a fasting glucose, interpretation should referto the following reference range: 55-99 mg/dLPotassium [Moles/Vol]4.0 mmol/LNormal 3.5 - 5.3 mmol/LFTMC RemisolProtein [Mass/Vol]8.3 g/dLHigh6.0 - 7.8 gm/dLFTMC RemisolSodium [Moles/Vol]136 mmol/YGsnxwk291 - 145 mmol/LFTMC RemisolTroponin I.cardiac [Mass/Vol]4.70 pg/mLLow10.10 - 27.10 pg/mLFTMC RemisolComment on above:Interpretive Data: The 95% CI (Confidence Interval) PPV (Positive Predictive Value) for myocardial infarction in females is 38 pg/mL, in males 51 pg/mL. The results should be used in conjunction withclinical conditions of myocardial infarction. (Access High Sensitivity Troponin I Instructions For Use, Claude Raulito, May 2018)Urea nitrogen [Mass/Vol]26 mg/dLHigh5 - 21 mg/dLMER[facility] RemisolUrea nitrogen/Creatinine [Mass ratio]22 mg/lcHrac19 - 20[facility] RemisolCHEMISTRYOrdered By: Yanet Davis on 34-48-5708Zmcwlmfxjcm peptide B (Bld) [Mass/Vol]21 pg/mL Normal5 - 80 pg/mLMER[facility]OSPITAL [facility] HemeManSSCOAGULATIONOrdered By: Chetna Patel on 46-05-0728qAQT Coag (PPP) [Time]37.3 sHigh25.1 - 36.5 second(s)[facility] Auto Coag Comment on above:Interpretive Data: Parameter 15 days - 4 weeks 1 - [...] the same coagulation reagent and instrumentation as [facility]. Currently there are no coagulation studies available worldwide for children to 14 days, andno normal ranges. Heparin therapeutic range (represented by Anti-Factor Xa activity of 0.2 - 0.4 U/mL) corresponds to PTT of 56.6 - 109.0 sec.INR Coag (PPP) [Relative time]1.2 {INR}Invalid Interpretation CodeMERCY HOSPITAL [facility] Auto CoagComment on above:Interpretive Data: INR results are specifically intended to assess patients stabilized on long-term Anticoagulation therapy suggested INR s Less Intensive Anticoagulation 2.0 3.0 Conventional Range 3.0 4.5PT Coag (PPP) [Time]13.7 sHigh9.4 - 12.5 second(s)[facility] Auto CoagComment on above:Interpretive Data: 15 days - 4 weeks 1 - [...] the same coagulation reagent and instrumentation as [facility]. Currently there are no coagulation studies available worldwide for children to 14 days, andno normal ranges.CTA Cheston [id number] ChestExam Date/Time: 09/08/2023 17:23 EST Reason for Exam: [...] Contrast: Isovue 370 Contrast amount in ml's: 68NoMercy Health – The Jewish HospitalConsent for Treatmenton 85-34-6218Svcwugg for Treatment [id number]#1.00TIFOhioHealth Riverside Methodist HospitalDischarge Instructionson 66-09-8828Fdyonhajc Instructions [id number]#1.00TIFChildren's Hospital of Columbus Clinical Summaryon 70-30-3741SQ Clinical Summary [place] [address] ED Clinical Summary Person Information Name: SIS MOORE Hilary/[facility] Age: 57 Years : 1965 Sex: Female Language: Zimbabwean PCP: BREA JJ CNP Marital Status: Visit [...] 09/08/2023 20:29:11 09/08/2023 20:29:11 09/08/2023 20:29:11 ADDRESS: [address] [place] [address] [address] [facility] [phone] PHYS DOC NOTES: MEDICAL INFORMATION: Prescriptions Given: Medications to Continue with No Changes Other Medications albuterol (Ventolin HFA 90 mcg/inh Aerosol-Adpt) 1 Puffs Inhalation 4 times a day as needed for wheezing. albuterol-ipratropium (albuterol-ipratropium Inh Debby 3 mL UD) 3 Milliliter [...] day. fluticasone nasal (fluticasone Nasal 0.05 mg/inh [place]) 2 Sprays Nasal Inhalation every day. each nostril. formoterol-glycopyrrolate (Bevespi Aerosphere 9 mcg-4.8 mcg/inh inhalation aerosol) 2 Puffs Inhalation 2 times a day. furosemide (furosemide 20 mg Tab) 1 Tablets By Mouth every day. gabapentin (gabapentin 300 mg Cap) 1 Capsules By Mouth 2 times a day. hydrochlorothiazide-lisinopril (hydrochlorothiazide-lisinopril 25 mg-20 mg Tab) 1 Tablets By Mouth every day. lamotrigine (lamotrigine 25 mg Tab) 1 Tablets By Mouth 2 times a day. Misc Prescription (ATORVASTATIN CALCIUM 40 MG TABLET) 0. multivitamin (Daily Harvinder oral tablet) 1 Tablets By Mouth every day. pioglitazone (pioglitazone 15 mg Tab) 1 Tablets By Mouth every day. potassium chloride (Potassium Chloride (Paw-Yqcj-Hpv 10) 10 mEq oral tablet, extended release) [...] With: Address: When: BREA JJ [address], [place] [phone] Business (1) In 3 days DIAGNOSIS: Acute chest painNoUniversity [facility]als [facility] CenterED Note-Physicianon 09-08-2023 ED Note-PhysicianPatient was signed out to me by outgoing [...] Discussed return precautions. Patient was discharged stable condition.[facility] HospitalComment on above:Result Comment: Electronically Signed By: Moses Fischer DO\.br\Date and Time Signed: 09/08/23 20:18 ASHA Note-PhysicianBasic Information Time Seen: Ramses Hair DO 09/08/2023 [...] taking it daily. She denies any fever, sweats,chills, nausea, vomiting. She has a history of [...] <1% risk of major adverse cardiac event in30 days. Medical Decision Making 57-year-old female to [...] 3. Her pain seems to be more pleuritic/musculoskeletal in etiology than itdoes cardiac. We will perform a 3-hour troponin. [...] List/Past Medical History O (more content not included)...[facility] HospitalComment on above:Result Comment: Electronically Signed By: Ramses Hair DO\.br\Date and Time Signed: 09/08/23 18:26 ASHA Patient Education Noteon [id number] Patient Education NotePulmonary Medicine Nonspecific Chest Pain, Adult Chest pain [...] these instructions at home: Medicines ? Take xrwy-jur-dgejday and prescription medicines only as told by [...] were done. Ask your health care provider, orthe department that is doing the tests, when [...] as told by your (more content not included)...Normal [facility] Patient Summaryon [id number] Patient Summary [address] [address] Patient Discharge Instructions Person Information Name: SIS MOORE Age: 57 Years Arrival Date: 09/08/2023 16:32:21 Discharge Diagnosis: Acute chest pain Primary Care Physician: BREA JJ CNP Provider Information Primary Provider: Ramses Hair DO Advanced Compensation Programs Manager:None The exam and treatment you received in the Emergency Department were for an urgent problem and are not intended as complete care. It is important that you follow up with a doctor, nurse practitioner,or physician?s assistant associate professor for ongoing care. If your symptoms become [...] With: Address: When: BREA JJ [address], [place] [phone] Business (1) In 3 days In the event that this physician does not participate in your insurance network, please consult with your insurance company to find a nearby participating provider. Patient Education Materials: Nonspecific Chest Pain, Adult A MESSAGE TO ALL PATIENTS REGARDING OPIOIDS PRESCRIPTION OPIOIDS: WHAT YOU NEED TO KNOW Prescription opioids can be used to help relieve dvftddnv-iw-geuikx pain and are often prescribed following a [...] and have fewer risks and side effects. Optionsmay include: ? Pain relievers such as acetaminophen, [...] unused prescription opioids: Find your community drug take- back program or [employer] mail-back program, or flush them down the toilet, following guidance from the Food and Drug Administration (www.fda.gov/Drugs/ResourcesForYou). ? Visit www.cdc.gov/drugoverdose to learn about the risks of opioids abuse and overdose. ? If you believe you may be struggling with addiction, tell your health home care assistant and ask for guidance or call [facility]S National Helpline at 0-598-921-HELP. v Source: [place] (more content not included)...[facility] HospitalEMS Documentationon [id number] DocumentationPlease click on link to see report [facility] HospitalComment on above:Result Comment: Missing Attachment - attachment exceeds size limitation Continuous_Complete_1.pdf Can be viewed in source systemHEMATOLOGYOrdered By: SYSTEM SYSTEM on 09-08-2023 Basophils/100 WBC (Bld)0.2 %Normal0.0 - 2.0 %[facility] HemeAutoSSBasophils/Leukocytes Auto (Bld) [Pure # fraction]0.0 E9/LNormal0.0 - 0.2 E9/LFTMC HemeAutoSS Eosinophils/100 WBC (Bld)0.8 %Normal0.0 - 8.0 %[facility] HemeAutoSS Eosinophils/Leukocytes Auto (Bld) [Pure # fraction]0.1 E9/LNormal0.0 - 0.5 E9/L [facility] HemeAutoSSLymphocytes/100 WBC (Bld)11.3 %Low14.0 - 50.0 %[facility] HemeAutoSS Lymphocytes/Leukocytes Auto (Bld) [Pure # fraction]1.0 E9/LNormal1.0 - 4.0 E9/L [facility] HemeAutoSSMonocytes/100 WBC (Bld)6.9 %Normal4.0 - 14.0 %[facility] HemeAutoSS Monocytes/Leukocytes Auto (Bld) [Pure # fraction]0.6 E9/LNormal0.2 - 1.0 E9/L [facility] HemeAutoSSNeutrophils/100 WBC (Bld)80.8 %High36.0 - 75.0 %[facility] HemeAutoSS Neutrophils/Leukocytes Auto (Bld) [Pure # fraction]7.1 E9/LNormal2.0 - 7.5 E9/L [facility] HemeAutoSSHEMATOLOGYOrdered By: Yanet Davis on 55-51-6273Sahcwsbqegx distribution width (RBC) [Ratio]15.1 %High10.9 - 14.2 %[facility] HemeAutoSSHematocrit (Bld) [Volume fraction]38.8 %Tbgons81.0 - 46.0 %[facility] HemeAutoSSHemoglobin (Bld) [Mass/Vol]13.0 g/zOBrxxxn97.0 - 16.0 gm/dLFTMC HemeAutoSSMCH (RBC) [Entitic mass]29.4 itZuloxn23.0 - 34.0 pgFTMC HemeAutoSSMCHC (RBC) [Mass/Vol]33.5 g/dL Duzwwv49.4 - 36.0 gm/dLFTMC HemeAutoSSMCV (RBC) [Entitic vol]87.6 iARquxzg01.0 - 100.0 [facility] HemeAutoSSPlatelet mean volume (Bld) [Entitic vol]10.7 fLNormal6.4 - 10.8 [facility] HemeAutoSSPlatelets (Bld) [#/Vol]195.0 E9/VGdrkig310.0 - 500.0 E9/[facility] HemeAutoSSRBC (Bld) [#/Vol]4.4 E12/LNormal4.3 - 5.9 E12/[facility] HemeAutoSSWBC corrected for nucl RBC Auto (Bld) [#/Vol]8.8 E9/LNormal4.0 - 11.[address] HemeAutoSSHep Func Panelon [id number].indirect [Mass or moles/Vol]UTCAbnormal0.1-0.9TrihealthComment on above:Result Comment: Result verified by Discern Rule. Performed result UTC (Unable to Calculate) was sent as an Alpha code due the inability to calculate a valid numeric value.Performed By: #### 1005436, 62222701, 6280865, 9052059, 11939724, 94813416, 53483345, 1026164 ####[facility] [address] [place], [place] [address]Tsroswx [Mass/Vol]3.8 g/dLNormal3.3-5.0TrihealthComment on above:Performed By: #### 0134800, 31577306, 3782728, 2015868, 18282517, 29364538, 86004547, 1504066 ####[facility] [address] [place], [place] [address]Rrpptms/Globulin (S) [Mass conc ratio]0.8Low1.1-2.2FDetwiler Memorial HospitalComment on above:Performed By: #### 0186602, 39232455, 6224760, 8906171, 13344298, 94214804, 57959554, 2072515 ####[facility] [address] [place], [place] [address]MRY [Catalytic activity/Vol]68 Int._Unit/MRedafr69-12VcfshgTrihealth Comment on above:Performed By: #### 8691814, 41796140, 6289115, 8973113, 51547750, 49316539, 62970841, 0978319 ####[address] [place], [place] [address]DSF No additional P-5'-P [Catalytic activity/Vol]18 Int._Unit/LNormal6-46TrihealthComment on above:Performed By: #### [id number], [id number], 6882596, 6574092, 26563489, 62719946, 56619506, 7501276 ####[address] [address]LQA [Catalytic activity/Vol]20 Int._Unit/LNormal 5-43TrihealthComment on above:Performed By: #### 7470092, 80800222, 8313629, 2424113, 07966395, 56034811, 53406577, 0515492 ####[address] [address]Moihlommt [Mass/Vol]0.4 mg/dLNormal0.0-1.1FDetwiler Memorial HospitalComment on above: Performed By: #### [id number], [id number], 3234412, 9749277, 00167035, 69247992, 62911479, 6601841 ####[address] [address]Nkbcjaaq (S) [Mass/Vol]4.5 g/dLHigh1.4-4.0TrihealthComment on above:Performed By: #### 5966560, 51283658, 6439160, 4853002, 33594014, 15275429, 26785586, 2211583 ####[address] [address]Qovirnk [Mass/Vol]8.3 g/dLHigh6.0-7.8 TrihealthComment on above:Performed By: #### 5467753, 30500006, 3929517, 2400465, 37313900, 41734064, 16125119, 8703409 ####[facility] [address] [place], [place] [address]Hhyzrvngn.direct [Mass/Vol]mg/dLNormal0.1-0.4[facility] Mercy Medical CenterComment on above: Performed By: #### 8827400, 09770030, 0556466, 9843194, 52846482, 73736353, 84256252, 4109304 ####[facility] [facility] [address] [place], [place] [address]Foywqxl Recordon 23-48-7477Rxwgbnm Record [id number]#1.00TIFFNormalTrihealthMonitor [id number]#1.00TIFFNormal TrihealthPT & PTTon 16-53-3546kNTO Coag (PPP) [Time]37.3 second(s)High25.1-36.5Fisher Mercy Medical CenterComment on above:Result Comment: Parameter 15 days - 4 weeks 1 - [...] the same coagulation reagent and instrumentation as [facility]. Currently there are no coagulation studies available worldwide for children to 14 days, andno normal ranges. Heparin therapeutic range (represented by Anti-Factor Xa activity of 0.2 - 0.4 U/mL) corresponds to PTT of 56.6 - 109.0 sec.Performed By: #### [id number], [id number], 2965520, 0581186, 67841388, 18886897, 80988291, 7626000 ####[facility] [address] [place], [place] [address]WDP Coag (PPP) [Relative time]1.2 {INR}Invalid Interpretation CodeFishMedStar Harbor Hospital Comment on above:Result Comment: INR results are specifically intended to assess patients stabilized on long-term Anticoagulation therapy suggested INR?s ?Less Intensive Anticoagulation? 2.0 ? 3.0 Conventional Range 3.0 ? 4.5Performed By: #### [id number], [id number], 6515828, 8072261, 77869227, 39709830, 97954163, 1837411 ####[facility] [address] [place], [place] [address]TI Coag (PPP) [Time]13.7 second(s) High9.4-12.5FDetwiler Memorial HospitalComment on above:Result Comment: 15 days - 4 weeks 1 - [...] the same coagulation reagent and instrumentation as [facility]. Currently there are no coagulation studies available worldwide for children to 14 days, andno normal ranges.Performed By: #### [id number], [id number], 9541245, 4766707, 59019866, 01160588, 56134199, 9957268 ####[facility] [address] [place], [place] [address]Rxdxmqah 0 Hr.on 90-92-6390Lkgqanph I.cardiac [Mass/Vol]4.70 pg/mLLow10.10-27.10TrihealthComment on above: Result Comment: The 95% CI (Confidence Interval) PPV (Positive Predictive Value) for myocardial infarction in females is 38 pg/mL, in males 51 pg/mL. The results should be used in conjunction with clinical conditions of myocardial infarction. (Access High Sensitivity Troponin I Instructions For Use, Exitround, May 2018)Performed By: #### [id number], [id number], 7979638, 3529944, 93566562, 29686716, 13302228, 2400991 ####[facility] [address] [place], [place] [address]Sibvuxmu 3 Hr.on 77-23-9835Dcjzagup I.cardiac [Mass/Vol]4.20 pg/mLLow10.10-27.10TrihealthComment on above: Result Comment: The 95% CI (Confidence Interval) PPV (Positive Predictive Value) for myocardial infarction in females is 38 pg/mL, in males 51 pg/mL. The results should be used in conjunction with clinical conditions of myocardial infarction. (Access High Sensitivity Troponin I Instructions For Use, Exitround, May 2018)Performed By: #### [id number] ####[facility] [address] [place], [place] [address]mJBVaj 79-34-1471WAL/1.73 sq M.predicted among non-blacks MDRD (S/P/Bld) [Vol rate/Area]52 mL/min/1.73 m2Low >=59TrihealthComment on above:Order Comment: Order added by Discern Expert.Result Comment: Chronic kidney disease could be indicated at eGFR's of less than 60 mL/min/1.73m2. Kidney failure is indicated at less than 15 mL/min/1.73m2.Performed By: #### [id number], 16491071, 3998259, 3440798, 49596824, 43058123, 61871136, 4710719 ####[facility] [address] [place], [place] [address]IYTCUWHZWJttlvxa By: Lito Pal on 12-67-4405Fauqtbj [Mass/Vol]109 mg/yOChxq39 - 99 mg/dLFTMC POC SubsectionComment on above:Result Comment: Notified RN/MDPOC Device [id number] Interpretation CodeFTMC POC SubsectionPOC User [id number] Interpretation CodeFTMC POC SubsectionPOC UsernameWARD, OLIVIAInvalid Interpretation CodeFTMC POC SubsectionGlucose [Mass/Vol]133 mg/dUIsvn32 - 99 mg/dLFTMC POC Subsection Comment on above:Result Comment: Notified RN/MDPOC Device [id number] Interpretation CodeFTMC POC SubsectionPOC User [id number] Interpretation CodeFTMC POC SubsectionPOC UsernameSHINSKI, COSSONDRAInvalid Interpretation CodeFTMC POC SubsectionGlucose [Mass/Vol]109 mg/eSJgpl19 - 99 mg/dLFTMC POC SubsectionComment on above:Result Comment: Notified RN/MDPOC Device SN [id number] Interpretation CodeFTMC POC SubsectionPOC User [id number] Invalid Interpretation CodeFTMC POC SubsectionPOC UsernameWARD, OLIVIAInvalid Interpretation CodeFTMC POC SubsectionCHEMISTRYOrdered By: Kimberley Freeman on 07-99-4209KqI1i (Bld) [Mass fraction]5.7 %Normal<=5.9%[facility] ChemAutoSSCHEMISTRY Ordered By: SYSTEM SYSTEM on 26-26-8869Jyobvljy I.cardiac [Mass/Vol]5.20 pg/mL Low10.10 - 27.10 pg/mLFTMC RemisolCHEMISTRYOrdered By: SYSTEM SYSTEM on 59-79-8104Hvyllgha I.cardiac [Mass/Vol]5.50 pg/mLLow10.10 - 27.10 pg/mLFTMC RemisolTroponin I.cardiac [Mass/Vol]5.30 pg/mLLow10.10 - 27.10 pg/mLFTMC Remisol Anion gap [Moles/Vol]12 mmol/LNormal6 - 16 mEq/LFTMC RemisolCalcium [Mass/Vol] 9.9 mg/dLNormal8.9 - 11.1 mg/dLFTMC RemisolChloride [Moles/Vol]101 mmol/LNormal 101 - 111 mmol/LFTMC RemisolCO2 [Moles/Vol]27 mmol/AKcszzn98 - 31 mmol/LFTMC RemisolCreatinine [Mass/Vol]0.8 mg/dLNormal0.5 - 1.3 mg/dLFTMC RemisolGFR/1.73 sq M.predicted among non-blacks MDRD (S/P/Bld) [Vol rate/Area]85 mL/min/1.73 m2 Normal>=59mL/min/1.73 m2FTMC Chem SGlucose [Mass/Vol]129 mg/nKOfkino87 - 199 mg/dLFTMC RemisolPotassium [Moles/Vol]3.9 mmol/LNormal3.5 - 5.3 mmol/LFTMC RemisolSodium [Moles/Vol]136 mmol/GRdfuat608 - 145 mmol/LFTMC RemisolUrea nitrogen [Mass/Vol]16 mg/dLNormal5 - 21 mg/dLFTMC RemisolUrea nitrogen/Creatinine [Mass ratio]20 mg/rxOvjwna90 - 20FT[facility] RemisolCOAGULATION Ordered By: David Chadwick on 29-50-7917dXOH Coag (PPP) [Time]31.8 fXisiff06.1 - 36.5 second(s)[facility] Auto CoagFibrin D-dimer FEU (PPP) [Mass/Vol]532 ng/mL FEU Invalid Interpretation Aotr292 - 500 ng/mL FEUFTMC Auto CoagComment on above: Result Comment: Results Called To XOCHITL RAMIREZ By DAVID CHADWICK And Read Back For Confirmation On 06/16/2023 16:59:58 EDT Results Verified By Repeat AnalysisINR Coag (PPP) [Relative time]1.0 {INR} Invalid Interpretation CodeFTMC Auto CoagPT Coag (PPP) [Time]11.4 sNormal9.4 - 12.5 second(s)[facility] Auto CoagHEMATOLOGYOrdered By: SYSTEM SYSTEM on 06-16-2023 Basophils/100 WBC (Bld)0.3 %Normal0.0 - 2.0 %[facility] HemeAutoSSBasophils/Leukocytes Auto (Bld) [Pure # fraction]0.0 E9/LNormal0.0 - 0.2 E9/LFTMC HemeAutoSS Eosinophils/100 WBC (Bld)0.9 %Normal0.0 - 8.0 %[facility] HemeAutoSS Eosinophils/Leukocytes Auto (Bld) [Pure # fraction]0.1 E9/LNormal0.0 - 0.5 E9/L [facility] HemeAutoSSLymphocytes/100 WBC (Bld)14.3 %Zgjggo84.0 - 50.0 %[facility] HemeAutoSS Lymphocytes/Leukocytes Auto (Bld) [Pure # fraction]1.2 E9/LNormal1.0 - 4.0 E9/L [facility] HemeAutoSSMonocytes/100 WBC (Bld)8.8 %Normal4.0 - 14.0 %[facility] HemeAutoSS Monocytes/Leukocytes Auto (Bld) [Pure # fraction]0.7 E9/LNormal0.2 - 1.0 E9/L [facility] HemeAutoSSNeutrophils/100 WBC (Bld)75.7 %High36.0 - 75.0 %[facility] HemeAutoSS Neutrophils/Leukocytes Auto (Bld) [Pure # fraction]6.4 E9/LNormal2.0 - 7.5 E9/L [facility] HemeAutoSSHEMATOLOGYOrdered By: Yanet Davis on 10-55-7277Rhvdmdlkqmt distribution width (RBC) [Ratio]14.8 %High10.9 - 14.2 %[facility] HemeAutoSSHematocrit (Bld) [Volume fraction]40.0 %Pbsfia74.0 - 46.0 %[facility] HemeAutoSSHemoglobin (Bld) [Mass/Vol]13.5 g/rFMofmlc84.0 - 16.0 gm/dLFTMC HemeAutoSSMCH (RBC) [Entitic mass]29.6 bmErkrus71.0 - 34.0 pgFTMC HemeAutoSSMCHC (RBC) [Mass/Vol]33.8 g/dL Lzpwdw61.4 - 36.0 gm/dLFTMC HemeAutoSSMCV (RBC) [Entitic vol]87.6 vTYflgac89.0 - 100.0 fLFTMC HemeAutoSSPlatelet mean volume (Bld) [Entitic vol]10.5 fLNormal6.4 - 10.8 fLFTMC HemeAutoSSPlatelets (Bld) [#/Vol]172.0 E9/BSqqlrt980.0 - 500.0 E9/LFTMC HemeAutoSSRBC (Bld) [#/Vol]4.6 E12/LNormal4.3 - 5.9 E12/LFTMC HemeAutoSSWBC corrected for nucl RBC Auto (Bld) [#/Vol]8.4 E9/LNormal4.0 - 11.0 E9/LFTMC HemeAutoSSBNPon 56-47-3866Pxrpuzzuzaf peptide B (Bld) [Mass/Vol]114.0 pg/mLNormal<=900.0The [facility] Hospital DaytonComment on above:Performed By: #### CMP, BNP, HSTROPN #### [facility] [address] [place] [address] Dr. Xiomy LennonCBC AUTO DIFFon 46-89-5837XJXJ #0.0 103/ulNormal0.0-0.1The [facility] DaytonComment on above:Performed By: #### PT, PTT #### [facility] [address] [place] [address] Dr. Xiomy LennonBasophils/100 WBC (Bld)0.2 %Normal0.2-2.0The [facility] Comment on above:Performed By: #### PT, PTT #### [facility] [address] [place] [address] Dr. Xiomy Prieto #0.2 103/ulNormal0.0-0.7The [facility] DaytonComment on above: Performed By: #### PT, PTT #### [facility] [address] [place] [address] Dr. Xiomy Birminghamosinophils/100 WBC (Bld)1.8 %Normal0.9-7.0The [facility] Comment on above:Performed By: #### PT, PTT #### [facility] [address] [place] [address] Dr. Xiomy Birminghamrythrocyte distribution width (RBC) [Ratio]15.4 %Critically high 11.0-15.0The [facility] DaytonComment on above:Performed By: #### PT, PTT #### [facility] [address] [place] [address] Dr. Xiomy LennonHematocrit (Bld) [Volume fraction]37.6 %Bvvszz51.0-48.0The [facility] DaytonComment on above:Performed By: #### PT, PTT #### [facility] [address] [place] [address] Dr. Xiomy LennonHemoglobin (Bld) [Mass/Vol]12.2 g/fRUakbfc29.0-16.0The [facility] DaytonComment on above:Performed By: #### PT, PTT #### [facility] [address] [place] [address] Dr. Xiomy Quinones #0.02 10e3/ulNormal0.00-0.03The [facility] DaytonComment on above:Performed By: #### PT, PTT #### [facility] [address] [place] [address] Dr. Xiomy Quinones %0.2 %Normal0.0-0.5The [facility] DaytonComment on above: Performed By: #### PT, PTT #### [facility] [address] [place] [address] Dr. Xiomy Cartwright #1.7 103/ulNormal1.2-3.8The [facility] DaytonComasc[facility] on above:Performed By: #### PT, PTT #### [facility] [address] [place] [address] Dr. Xiomy Cheryhocytes/100 WBC (Bld)17.0 %Critically low20.5-60.0The [facility] DaytonComment on above:Performed By: #### PT, PTT #### [facility] [address] [place] [address] Dr. Xiomy ShawUAL DIFF REQNONormalThe [facility] Hospital DaytonComment on above: Performed By: #### PT, PTT #### [facility] [address] [place] [address] Dr. Xiomy Garcia (RBC) [Entitic mass]28.6 puFhwzhb45.7-34.0The [facility] DaytonComment on above:Performed By: #### PT, PTT #### [facility] [address] [place] [address] Dr. Xiomy Green (RBC) [Mass/Vol]32.4 g/pHZeshkr73.9-35.2The [facility] DaytonComment on above:Performed By: #### PT, PTT #### [facility] [address] [place] [address] Dr. Xiomy Sexton (RBC) [Entitic vol]88.3 iZNcgfqz89.0-99.0The [facility] DaytonComment on above:Performed By: #### PT, PTT #### [facility] [address] [place] [address] Dr. Xiomy Bullock #0.7 103/ulNormal0.3-0.8The [facility] DaytonComment on above:Performed By: #### PT, PTT #### [facility] [address] [place] [address] Dr. Xiomy Raygozaocytes/100 WBC (Bld)7.3 %Normal1.7-12.0The [facility] Comment on above:Performed By: #### PT, PTT #### [facility] [address] [place] [address] Dr. Xiomy Cano #7.2 103/ulCritically high1.4-6.5The [facility] Comment on above:Performed By: #### PT, PTT #### [facility] [address] [place] [address] Dr. Xiomy Armentaophils/100 WBC (Bld)73.5 %Cayzlv06.0-75.0The [facility] DaytonComment on above:Performed By: #### PT, PTT #### [facility] [address] [place] [address] Dr. Xiomy Montero mean volume (Bld) [Entitic vol]11.5 fLNormal9.5-13.5The [facility] DaytonComment on above:Performed By: #### PT, PTT #### [facility] [address] [place], [place] [address] Dr. Xiomy LennonPLT197 103/kwLpbenw412-554Amj [facility] on above: Performed By: #### PT, PTT #### [facility] [address] [place] [address] Dr. Xiomy LennonRBC4.26 106/ulNormal4.20-5.40The [facility] on above:Performed By: #### PT, PTT #### [facility] [address] [place] [address] Dr. Xiomy LennonWBC9.7 103/ulNormal4.0-11.0The [facility] on above: Performed By: #### PT, PTT #### [facility] [address] [place] [address] Dr. Xiomy LennonLACTATE/LACTIC ACIDon 71-56-4219Pifqcba [Moles/Vol]0.7 mmol/L Normal0.4-2.0The [facility] on above:Performed By: #### PT, PTT #### [facility] [address] [place] [address] Dr. Xiomy LennonPROF 14(COMP METB)on 95-55-6096Mmyxxen [Mass/Vol]3.3 g/dL Critically low3.4-5.0The [facility] on above:Performed By: #### CMP, BNP, HSTROPN #### [facility] [address] [place] [address] Dr. Xiomy LennonAlbumin/Globulin [Mass ratio]0.7 {ratio}NormalThe [facility] on above:Performed By: #### CMP, BNP, HSTROPN #### [facility] [address] [place] [address] Dr. Xiomy Snyder [Catalytic activity/Vol]89 U/XDaguwk27-145Maj [facility] on above:Performed By: #### CMP, BNP, HSTROPN #### [facility] [address] [place] [address] Dr. Xiomy Whitney [Catalytic activity/Vol]34 U/QUujrxg07-67Nkq [facility] DaytonComment on above:Performed By: #### CMP, BNP, HSTROPN #### [facility] [address] [place] [address] Dr. Xiomy LennonAnion gap [Moles/Vol]10.5 mmol/LNormalToledo Hospital Comment on above:Performed By: #### CMP, BNP, HSTROPN #### [facility] [address] [place] [address] Dr. Xiomy LennonAST [Catalytic activity/Vol]22 U/TWwynkw86-70Gyg [facility] DaytonComment on above:Performed By: #### CMP, BNP, HSTROPN #### [facility] [address] [place] [address] Dr. Xiomy LennonBilirubin [Mass/Vol]0.3 mg/dLNormal0.2-1.0[facility] Comment on above:Performed By: #### CMP, BNP, HSTROPN #### [facility] [address] [place] [address] Dr. Xiomy LennonCalcium [Mass/Vol]9.4 mg/dLNormal8.5-10.1[facility] Comment on above:Performed By: #### CMP, BNP, HSTROPN #### [facility] [address] [place] [address] Dr. Xiomy LennonChloride [Moles/Vol]99 mmol/TQpqurf65-110GfuToledo Hospital Comment on above:Performed By: #### CMP, BNP, HSTROPN #### [facility] [address] [place] [address] Dr. Xiomy LennonCO2 [Moles/Vol]31.6 mmol/MZpvjel07.0-32.0[facility] Comment on above:Performed By: #### CMP, BNP, HSTROPN #### [facility] [address] [place] [address] Dr. Xiomy LennonCreatinine [Mass/Vol]0.86 mg/dLNormal0.55-1.02The [facility] DaytonComment on above:Performed By: #### CMP, BNP, HSTROPN #### [facility] [address] [address] [address] Xiomy BirminghamGFR-AF FRENCH>60Normal>=60The [facility] DaytonComment on above:Performed By: #### CMP, BNP, HSTROPN #### [facility] [address] [place] [address] Dr. Xiomy BirminghamGFR-NON AF FRENCH>60Normal>=60The [facility] DaytonComment on above:Performed By: #### CMP, BNP, HSTROPN #### [facility] [address] [place] [address] Dr. Xiomy LennonGlobulin (S) [Mass/Vol]4.6 g/dLNormalThe [facility] DaytonComment on above:Performed By: #### CMP, BNP, HSTROPN #### [facility] [address] [place] [address] Dr. Xiomy LennonGlucose [Mass/Vol]133 mg/dLCritically nszw73-764Xpm [facility] DaytonComment on above:Performed By: #### CMP, BNP, HSTROPN #### [facility] [address] [place] [address] Dr. Xiomy LennonPotassium [Moles/Vol]4.1 mmol/LNormal3.5-5.1[facility] Comment on above:Performed By: #### CMP, BNP, HSTROPN #### [facility] [address] [place] [address] Dr. Xiomy LennonProtein [Mass/Vol]7.9 g/dLNormal6.4-8.2The [facility] Comment on above:Performed By: #### CMP, BNP, HSTROPN #### [facility] [address] [place] [address] Dr. Xiomy LennonSodium [Moles/Vol]137 mmol/SJllgvz230-712WfiToledo Hospital Comment on above:Performed By: #### CMP, BNP, HSTROPN #### [facility] [address] [place] [address] Dr. Xiomy Mobley nitrogen [Mass/Vol]16.0 mg/dLNormal7.0-18.0[facility] Systemment on above:Performed By: #### CMP, BNP, HSTROPN #### [facility] [address] [place] [address] Dr. Xiomy Mobley nitrogen/Creatinine [Mass ratio]18.6 mg/mgNoNorwalk Memorial HospitalComascension borg[facility] on above:Performed By: #### CMP, BNP, HSTROPN #### [facility] [address] [place] [address] Dr. Xiomy LennonPROTIMEon 40-16-1292CYQ Coag (PPP) [Relative time]0.95 {INR} NormalThe [facility] on above:Performed By: #### PTT, PT #### [facility] [address] [place] [address] Dr. Xiomy Wolf GUIDELINESSEE BELOWChildren's Hospital of ColumbusComment on above:Result Comment: DESIRED INR: 2.0 - 3.0 CONDITIONS NOT LISTED BELOW 2.5 - 3.5 FOR PROSTHETIC HEART VALVE REPLACEMENT 2.5 - 3.5 RECURRENT THROMBOSIS Performed By: #### PTT, PT #### [facility] [address] [place] [address] Dr. Xiomy LennonPT Coag (PPP) [Time]10.1 sNormal9.0-11.6The [facility] Comment on above:Performed By: #### PTT, PT #### [facility] [address] [place] [address] Dr. Xiomy Yates 04-16-3376dJLV Coag (Bld) [Time]27.2 qPzachs40.3-36.2The [facility] on above:Performed By: #### PTT, PT #### [facility] [address] [place] [address] Dr. Xiomy Kurtz, HIGH SENSITIVITYon 64-64-2780KVJNNB4.2 pg/mLNormal 4.0-51.3The [facility] on above:Result Comment: CUT-OFF POINTS HAVE BEEN ESTABLISHED BASED ON THE FOURTH UNIVERSAL DEFINITIONS OF MYOCARDIAL INFARCTION. THE UPPER REFERENCE LIMIT (URL) OF TROPONIN, DEFINED THE 99TH PERCENTILE OF cTnI DISTRIBUTION IN A REFERENCE POPULATION, HAS BEEN CONFIRMED THE DECISION THRESHOLD FOR SD DIAGNOSIS.Performed By: #### CMP, BNP, HSTROPN #### [facility] [address] [place], [place] [address] Dr. Xiomy LennonXR CHEST 1 Von 55-57-5316ZK CHEST 1 VEXAM: XR CHEST 1 V HISTORY: SHORTNESS OF BREATH COMPARISON: 01/02/[address] of the chest from 01/12/2023 TECHNIQUE: Chest X-ray AP, 1 view FINDINGS: Support devices: None. Lungs/pleura: No consolidation, effusion, or pneumothorax. Heart and mediastinum: Normal contours. Bones: No acute abnormality identified. Impression: No radiographic evidence of acute cardiopulmonary process. Electronically authenticated by: JUSTINE MARES Date: 2023-02-23 19:05[facility] ColumbusHEMOGLOBINon 71-10-5173Glltcngnqg (Bld) [Mass/Vol]13.0 g/dL Wyfzqn27.0-16.0[facility] HospitalComment on above:Performed By: #### HGB #### [facility] [address] [place] [address] Dr. Xiomy LennonPULMONARY FUNCTION TESTon 63-89-8962NSXJPXISN FUNCTION TEST PULMONARY FUNCTION TEST NOTE DATE: [...] a minute with ambulation/activity. 3. Clinical correlation required.NormalThe [facility] LUNG CANCER SCREENINGon 08-38-5114AS LUNG CANCER SCREENINGEXAMINATION: CT LUNG CANCER SCREENING HISTORY: Nicotine dependence [...] Electronically authenticated by: MIGUEL MEDEROS Date: 2023-01-12 14:10[facility] Hospital of ColumbusGLYCOHEMOGLOBIN A1Con 59-01-7327DAC RECOMMENDATIONSEE BELOW NormalThe [facility] DaytonComascension borg[facility] hospital on above:Result Comment: ADA RECOMMENDED LIMIT 4.0 - 6.0 ADA THERAPEUTIC TARGET < 7.0 ACTION SUGGESTED > 7.0Performed By: #### A1C #### [facility] [address] [place], [place] [address] Dr. Xiomy LennonGlucose [Mass/Vol]111 mg/dLChildren's Hospital of ColumbusComment on above:Performed By: #### A1C #### [facility] [address] [place], [place] [address] Dr. Xiomy LennonHbA1c (Bld) [Mass fraction]5.5 %Normal4.5-6.2The [facility] DaytonComment on above:Performed By: #### A1C #### [facility] [address] [address] [address] Xiomy LennonPROF CHEM 8 (BAS METB)on 02-86-4262Ubckb gap [Moles/Vol]12.0 mmol/LNormalToledo HospitalComment on above:Performed By: #### PT, PTT #### [facility] [address] [place] [address] Dr. Xiomy LennonCalcium [Mass/Vol]10.0 mg/dLNormal8.5-10.1The [facility] Comment on above:Performed By: #### PT, PTT #### [facility] [address] [place] [address] Dr. Xiomy LennonChloride [Moles/Vol]102 mmol/GFilfga95-672Xba [facility] Comment on above:Performed By: #### PT, PTT #### [facility] [address] [place] [address] Dr. Xiomy LennonCO2 [Moles/Vol]30.4 mmol/PMbcdnk36.0-32.0[facility] Comment on above:Performed By: #### PT, PTT #### [facility] [address] [place] [address] Dr. Xiomy LennonCreatinine [Mass/Vol]0.79 mg/dLNormal0.55-1.02The [facility] DaytonComment on above:Performed By: #### PT, PTT #### [facility] [address] [place] [address] Dr. Xiomy BirminghamGFR-AF FRENCH>60Normal>=60The [facility] DaytonComment on above:Performed By: #### PT, PTT #### [facility] [address] [place] [address] Dr. Xiomy BirminghamGFR-NON AF FRENCH>60Normal>=60The [facility] DaytonComment on above:Performed By: #### PT, PTT #### [facility] [address] [place] [address] Dr. Xiomy LennonGlucose [Mass/Vol]147 mg/dLCritically jkhu10-333Zlu [facility] DaytonComment on above:Performed By: #### PT, PTT #### [facility] [address] [address] [address] Xiomy LennonPotassium [Moles/Vol]4.4 mmol/LNormal3.5-5.1The [facility] Comment on above:Performed By: #### PT, PTT #### [facility] [address] [address] [address] Xiomy LennonSodium [Moles/Vol]140 mmol/NKxrrvm666-541Bbo [facility] Comment on above:Performed By: #### PT, PTT #### [facility] [address] [address] [address] Xiomy LennonUrea nitrogen [Mass/Vol]18.0 mg/dLNormal7.0-18.0The [facility] DaytonComment on above:Performed By: #### PT, PTT #### [facility] [address] [place] [address] Dr. Xiomy LennonUrea nitrogen/Creatinine [Mass ratio]22.8 mg/mgNoNorwalk Memorial HospitalComment on above:Performed By: #### PT, PTT #### [facility] [address] [address] [address] Xiomy LennonTHEOPHYLLINEon 50-00-4904YANOFGCVPOBA6.1 ug/mLCritically low 10.0-20.0[facility] HospitalComment on above:Performed By: #### REGLA #### [facility] [address] [address] [address] Xiomy LennonGLYCOHEMOGLOBIN A1Con 43-43-8255SVP RECOMMENDATIONSEE BELOWNormal The [facility] Hospital DaytonComment on above:Result Comment: ADA RECOMMENDED LIMIT 4.0 - 6.0 ADA THERAPEUTIC TARGET < 7.0 ACTION SUGGESTED > 7.0Performed By: #### PT, PTT #### [facility] [address] [place] [address] Dr. Xiomy LennonGlucose [Mass/Vol]120 mg/dLNoNorwalk Memorial HospitalComment on above:Performed By: #### PT, PTT #### [facility] [address] [place] [address] Dr. Xiomy LennonHbA1c (Bld) [Mass fraction]5.8 %Normal4.5-6.2The [facility] DaytonComment on above:Performed By: #### PT, PTT #### [facility] [address] [place] [address] Dr. Xiomy KuID PROFILEon 52-42-9456JDKO-HDL RATIO NORMSEE BELOWChildren's Hospital of ColumbusComment on above:Result Comment: 3.3 - 4.4 LOW RISK 4.4 - 7.1 AVERAGE RISK 7.1 - 11.0 MODERATE RISK >11.0 HIGH RISKPerformed By: #### PT, PTT #### [facility] [address] [place] [address] Dr. Xiomy Vieiraesterol [Mass/Vol]135 mg/dLNormal<=200The [facility] Comment on above:Performed By: #### PT, PTT #### [facility] [address] [place] [address] Dr. Xiomy Vieiraesterol in HDL [Mass/Vol]77 mg/dLCritically qehz75-99Rcs [facility] DaytonComment on above:Performed By: #### PT, PTT #### [facility] [address] [place] [address] Dr. Xiomy Vieiraesterol in LDL [Mass/Vol]44.6 mg/dLChildren's Hospital of ColumbusComment on above:Performed By: #### PT, PTT #### [facility] [address] [place] [address] Dr. Xiomy Vieiraesterkennedi.total/Cholesterol in HDL [Mass ratio]1.8 {ratio} NormalThe [facility] DaytonComment on above:Performed By: #### PT, PTT #### [facility] [address] [place] [address] Dr. Xiomy HurtL NORMAL> or = 60 mg/dl - LOW CARDIOVASCULAR RISK <40 mg/dl - HIGH CARDIOVASCULAR RISKChildren's Hospital of ColumbusComment on above:Performed By: #### PT, PTT #### [facility] [address] [place] [address] Dr. Xiomy Whitaker CALC NORMALSEE BELOWChildren's Hospital of ColumbusComment on above:Result Comment: <100 mg/dl OPTIMAL 100 - 129 mg/dl NEAR OR ABOVE OPTIMAL 130 - 159 mg/dl BORDERLINE HIGH 160 - 189 mg/dl HIGH >190 mg/dl VERY HIGH Performed By: #### PT, PTT #### [facility] [address] [address] [address] Xiomy LennonTriglyceride [Mass/Vol]67 mg/dLNormal<=150The [facility] Comment on above:Performed By: #### PT, PTT #### [facility] [address] [address] [address] Xiomy LennonVLDL CALC13.4 mg/dLChildren's Hospital of ColumbusComment on above: Performed By: #### PT, PTT #### [facility] [address] [place] [address] Dr. Xiomy LennonPROF CHEM 8 (BAS METB)on 53-21-7580Nwwct gap [Moles/Vol]8.9 mmol/LNormalToledo HospitalComment on above:Performed By: #### PT, PTT #### [facility] [address] [address] [address] Xiomy LennonCalcium [Mass/Vol]9.7 mg/dLNormal8.5-10.1[facility] Comment on above:Performed By: #### PT, PTT #### [facility] [address] [address] [address] Ximoy LennonChloride [Moles/Vol]99 mmol/EAhtahn71-725Gqb [facility] Comment on above:Performed By: #### PT, PTT #### [facility] [address] [address] [address] Xiomy LennonCO2 [Moles/Vol]32.0 mmol/UJqpsbw84.0-32.0[facility] Comment on above:Performed By: #### PT, PTT #### [facility] [address] [place] [address] Dr. Xiomy LennonCreatinine [Mass/Vol]0.78 mg/dLNormal0.55-1.02The [facility] DaytonComment on above:Performed By: #### PT, PTT #### [facility] [address] [place] [address] Dr. Xiomy BirminghamGFR-AF FRENCH>60Normal>=60The [facility] DaytonComment on above:Performed By: #### PT, PTT #### [facility] [address] [address] [address] Xiomy BirminghamGFR-NON AF FRENCH>60Normal>=60The [facility] DaytonComment on above:Performed By: #### PT, PTT #### [facility] [address] [address] [address] Xiomy LennonGlucose [Mass/Vol]111 mg/dLCritically jxzs78-527Vjx [facility] DaytonComment on above:Performed By: #### PT, PTT #### [facility] [address] [place] [address] Dr. Xiomy LennonPotassium [Moles/Vol]3.9 mmol/LNormal3.5-5.1The [facility] Comment on above:Performed By: #### PT, PTT #### [facility] [address] [place] [address] Dr. Xiomy LennonSodium [Moles/Vol]136 mmol/PBzyurm156-240Okl [facility] Comment on above:Performed By: #### PT, PTT #### [facility] [address] [place] [address] Dr. Xiomy LennonUrea nitrogen [Mass/Vol]10.0 mg/dLNormal7.0-18.0The [facility] DaytonComment on above:Performed By: #### PT, PTT #### [facility] [address] [place] [address] Dr. Xiomy Mobley nitrogen/Creatinine [Mass ratio]12.8 mg/mgNormalThe [facility] DaytonComment on above:Performed By: #### PT, PTT #### [facility] [address] [place] [address] Dr. Xiomy LennonMG MAMM SCREEN 3D EMY CADon [id number] MAMM SCREEN 3D EMY CAD Patient: SIS MOORE Exam Date: 04/30/2022 : 1965 Gender:F Ordering : EN[facility]QUE BRE[facility] Admission #: [id number] Family : Order #: [id number] CLICK HERE TO VIEW EXAM RADIOLOGY REPORT [...] Treatments None Family Cancers None LOCATION: [facility] BREAST COMPOSITION: Almost entirely fatty. FINDINGS: DIAGNOSTIC [...] by: Leana Ayoub MD on 04/30/2022 at 10:06[facility] AUTO DIFFon [id number] #0.0 103/ulNormal0.0-0.1Toledo HospitalComment on above:Performed By: #### PT, PTT #### [facility] [address] [place] [address] Dr. Xiomy Landryphils/100 WBC (Bld)0.2 %Normal0.2-2.0[facility] Comment on above:Performed By: #### PT, PTT #### [facility] [address] [place] [address] Dr. Xiomy Prieto #0.2 103/ulNormal0.0-0.7The [facility] DaytonComment on above: Performed By: #### PT, PTT #### [facility] [address] [place] [address] Dr. Xiomy Birminghamosinophils/100 WBC (Bld)1.7 %Normal0.9-7.0The [facility] Comment on above:Performed By: #### PT, PTT #### [facility] [address] [place] [address] Dr. Xiomy Birminghamrythrocyte distribution width (RBC) [Ratio]15.6 %Critically high 11.0-15.0The [facility] DaytonComment on above:Performed By: #### PT, PTT #### [facility] [address] [place] [address] Dr. Xiomy LennonHematocrit (Bld) [Volume fraction]43.4 %Zcnsmo17.0-48.0The [facility] DaytonComment on above:Performed By: #### PT, PTT #### [facility] [address] [place] [address] Dr. Xiomy LennonHemoglobin (Bld) [Mass/Vol]14.0 g/mGEwsuuu06.0-16.0The [facility] DaytonComment on above:Performed By: #### PT, PTT #### [facility] [address] [place] [address] Dr. Xiomy Quinones #0.04 10e3/ulCritically high0.00-0.03The [facility] Comment on above:Performed By: #### PT, PTT #### [facility] [address] [place] [address] Dr. Xiomy Quinones %0.4 %Normal0.0-0.5The [facility] DaytonComment on above: Performed By: #### PT, PTT #### [facility] [address] [place] [address] Dr. Xiomy CheryH #1.2 103/ulNormal1.2-3.8The [facility] DaytonComment on above:Performed By: #### PT, PTT #### [facility] [address] [place] [address] Dr. Xiomy Allenmphocytes/100 WBC (Bld)11.4 %Critically low20.5-60.0The [facility]ríguez HospitalComment on above:Performed By: #### PT, PTT #### [facility] [address] [place] [address] Dr. Xiomy Moya DIFF REQNONormalThe [facility] DaytonComment on above: Performed By: #### PT, PTT #### [facility] [address] [place] [address] Dr. Xiomy Green (RBC) [Entitic mass]29.7 lsFrgqqd58.7-34.0The [facility] DaytonComment on above:Performed By: #### PT, PTT #### [facility] [address] [place] [address] Dr. Xiomy Green (RBC) [Mass/Vol]32.3 g/nGDxeams10.9-35.2The [facility] DaytonComment on above:Performed By: #### PT, PTT #### [facility] [address] [place] [address] Dr. Xiomy Sexton (RBC) [Entitic vol]92.1 pBDequpe47.0-99.0The [facility] DaytonComment on above:Performed By: #### PT, PTT #### [facility] [address] [place] [address] Dr. Xiomy Bullock #0.8 103/ulNormal0.3-0.8The [facility] DaytonComment on above:Performed By: #### PT, PTT #### [facility] [address] [place] [address] Dr. Xiomy Raygozaocytes/100 WBC (Bld)7.9 %Normal1.7-12.0[facility] Comment on above:Performed By: #### PT, PTT #### [facility] [address] [place] [address] Dr. Xiomy Cano #8.3 103/ulCritically high1.4-6.5The [facility] Comment on above:Performed By: #### PT, PTT #### [facility] [address] [place] [address] Dr. Yilan ChangNeutrophils/100 WBC (Bld)78.4 %Critically high43.0-75.0The [facility] DaytonComment on above:Performed By: #### PT, PTT #### [facility] [address] [place] [address] Dr. Xiomy Montero mean volume (Bld) [Entitic vol]11.0 fLNormal9.5-13.5The [facility] DaytonComment on above:Performed By: #### PT, PTT #### [facility] [address] [place] [address] Dr. Xiomy LennonPLT196 103/jiKcztdn595-181Bre [facility] on above: Performed By: #### PT, PTT #### [facility] [address] [place] [address] Dr. Xiomy LennonRBC4.71 106/ulNormal4.20-5.40The [facility] DaytonComment on above:Performed By: #### PT, PTT #### [facility] [address] [place] [address] Dr. Xiomy LennonWBC10.6 103/ulNormal4.0-11.0The [facility] DaytonComasc[facility] on above:Performed By: #### PT, PTT #### [facility] [address] [place] [address] Dr. Xiomy LennonLIPASEon 82-73-9839Qzzemb [Catalytic activity/Vol]92.0 U/LNormal 73.0-393.0The [facility] on above:Performed By: #### PT, PTT #### [facility] [address] [place] [address] Dr. Xiomy LennonPROF 14(COMP METB)on 18-27-3558Tvdmtmg [Mass/Vol]3.6 g/dLNormal 3.4-5.0The [facility] DaytonComment on above:Performed By: #### PT, PTT #### [facility] [address] [place] [address] Dr. Xiomy LennonAlbumin/Globulin [Mass ratio]0.7 {ratio}NormalThe [facility]ríguez HospitalComment on above:Performed By: #### PT, PTT #### [facility] [address] [address] [address] Xiomy Snyder [Catalytic activity/Vol]78 U/QZynatw52-053Kpv [facility] DaytonComment on above:Performed By: #### PT, PTT #### [facility] [address] [address] [address] Xiomy CarrizalesT [Catalytic activity/Vol]25 U/OYgylkq66-57Bwg [facility] DaytonComment on above:Performed By: #### PT, PTT #### [facility] [address] [address] [address] Xiomy Rosenbaum gap [Moles/Vol]9.4 mmol/LNormalThe [facility] DaytonComment on above:Performed By: #### PT, PTT #### [facility] [address] [address] [address] Xiomy LennonAST [Catalytic activity/Vol]19 U/AUvfayc98-63Axj [facility] DaytonComment on above:Performed By: #### PT, PTT #### [facility] [address] [address] [address] Xiomy LennonBilirubin [Mass/Vol]0.3 mg/dLNormal0.2-1.0The [facility] Comment on above:Performed By: #### PT, PTT #### [facility] [address] [address] [address] Xiomy LennonCalcium [Mass/Vol]9.9 mg/dLNormal8.5-10.1The [facility] Comment on above:Performed By: #### PT, PTT #### [facility] [address] [address] [address] Xiomy LennonChloride [Moles/Vol]96 mmol/LCritically cxu08-192Ibc [facility] DaytonComment on above:Performed By: #### PT, PTT #### [facility] [address] [address] [address] Xiomy LennonCO2 [Moles/Vol]34.6 mmol/LCritically high21.0-32.0The [facility] Hospitalment on above:Performed By: #### PT, PTT #### [facility] [address] [address] [address] Xiomy LennonCreatinine [Mass/Vol]0.93 mg/dLNormal0.55-1.02The [facility] DaytonComment on above:Performed By: #### PT, PTT #### [facility] [address] [address] [address] Xiomy BirminghamGFR-AF FRENCH>60Normal>=60The [facility] DaytonComment on above:Performed By: #### PT, PTT #### [facility] [address] [address] [address] Xiomy BirminghamGFR-NON AF FRENCH>60Normal>=60The [facility] DaytonComment on above:Performed By: #### PT, PTT #### [facility] [address] [address] [address] Xiomy LennonGlobulin (S) [Mass/Vol]5.0 g/dLNormalThe [facility] DaytonComment on above:Performed By: #### PT, PTT #### [facility] [address] [address] [address] Xiomy LennonGlucose [Mass/Vol]139 mg/dLCritically unqn37-674New [facility] Hospitalment on above:Performed By: #### PT, PTT #### [facility] [address] [address] [address] Xiomy LennonPotassium [Moles/Vol]4.0 mmol/LNormal3.5-5.1The [facility] Comment on above:Performed By: #### PT, PTT #### [facility] [address] [address] [address] Xiomy LennonProtein [Mass/Vol]8.6 g/dLCritically high6.4-8.2The [facility] DaytonComment on above:Performed By: #### PT, PTT #### [facility] [address] [address] [address] Xiomy LennonSodium [Moles/Vol]136 mmol/NDxdvxt005-469Wjv [facility] Comment on above:Performed By: #### PT, PTT #### [facility] [address] [place] [address] Dr. Xiomy Mobley nitrogen [Mass/Vol]19.0 mg/dLCritically high7.0-18.0T[facility] HospitalComment on above:Performed By: #### PT, PTT #### [facility] [address] [place] [address] Dr. Xiomy Mobley nitrogen/Creatinine [Mass ratio]20.4 mg/mgNoNorwalk Memorial HospitalComment on above:Performed By: #### PT, PTT #### [facility] [address] [place] [address] Dr. Xiomy LennonPROTIMEon 82-43-9729KCA Coag (PPP) [Relative time]0.99 {INR} NormalThe [facility] DaytonComment on above:Performed By: #### PT, PTT #### [facility] [address] [place] [address] Dr. Xiomy Wolf GUIDELINESSEE BELOWChildren's Hospital of ColumbusComment on above:Result Comment: DESIRED INR: 2.0 - 3.0 CONDITIONS NOT LISTED BELOW 2.5 - 3.5 FOR PROSTHETIC HEART VALVE REPLACEMENT 2.5 - 3.5 RECURRENT THROMBOSIS Performed By: #### PT, PTT #### [facility] [address] [place] [address] Dr. Xiomy LennonPT Coag (PPP) [Time]10.7 sNormal9.0-11.6The [facility] Comment on above:Performed By: #### PT, PTT #### [facility] [address] [place] [address] Dr. Xiomy Yates 07-95-0962qJCK Coag (Bld) [Time]26.9 qHzflfe01.3-36.2[facility] HospitalComment on above:Performed By: #### PT, PTT #### [facility] [address] [place] [address] Dr. Xiomy Kurtz, HIGH SENSITIVITYon 38-71-0684KQHPDP0.0 pg/mLNormal 4.0-51.3The [facility] DaytonComment on above:Result Comment: CUT-OFF POINTS HAVE BEEN ESTABLISHED BASED ON THE FOURTH UNIVERSAL DEFINITIONS OF MYOCARDIAL INFARCTION. THE UPPER REFERENCE LIMIT (URL) OF TROPONIN, DEFINED THE 99TH PERCENTILE OF cTnI DISTRIBUTION IN A REFERENCE POPULATION, HAS BEEN CONFIRMED THE DECISION THRESHOLD FOR SD DIAGNOSIS.Performed By: #### PT, PTT #### [facility] [address] [place], [place] [address] Dr. Xiomy LennonUS SINGLE QUAD RT UPPERon [id number] SINGLE QUAD RT UPPER ULTRASOUND RIGHT UPPER [...] Electronically authenticated by: KENDY HERRERA Date: 2022-03-26 19:58NoNorwalk Memorial HospitalCardiovascular Lab Reporton [id number] Lab ReportUnMount [facility]el [facility] MR #: [id number] Department of Physician: Boo Landers M.D. Division of Service Date: 06/15/2021 Cardiology Birthdate: 1965 Adult Cardiovascular Room #: [place] [address] Cardiovascular Laboratory Report IMPRESSIONS: 1. Mild disease [...] management; given mild coronary artery disease, aspirin, ypwzgthk-ui-mvcl intensity statin therapy, beta-aleks, and angiotensin-converting enzyme inhibitor are indicated. 4. Follow up with Toshia Sam nurse practitioner in the next 2 to 3 months. 5. Follow up with her family physician as scheduled. PROCEDURES: Ultrasound-guided access to the right common femoral vein, ultrasound-guided access to the right common femoral artery, right heart catheterization, bilateral selective coronary angiography, placement of a 6-Pashto MynxGrip closure device. METHODS: After risks, benefits, [...] femoral vein and artery was obtained. A 6-Pashto 11 cm sheath was placed in each. [...] the procedure. All catheters were removed. A 6-Pashto MynxGrip closure device was deployed per protocol [...] Soto M.D. Date Trans: 06/15/2021 11:37 A/sofía DN_[id number] cc: Toshia Sam, MSN, [employer] Department Of Surgery [place] [address] Vital Signs Date TimeVital SignValuePerforming QkdsmpqueImtfnxbc57-11-4292 09:16-0400Inhaled oxygen flow rate3 L/minBrea BROWNING Work Phone: [facility]10-29-2025 09:16-0400 SaO2% (BldA) [Mass fraction]93 %Brea Анна COLLADO-C Work Phone: [facility]10-29-2025 09:04-0400 Body aqluzk640.72 Fanyisa Анна COLLADO-C Work Phone: [facility]10-29-2025 09:04-0400 Body mass index (BMI) [Ratio]38.6 kg/m2Lisa Aichholz LIGHTING ENGINEER-C Work Phone: [facility]10-29-2025 09:04-0400 Body ikgumhgyqiy89.1 [degF]Brea Aichholz LIGHTING ENGINEER-C Work Phone: 1(667)[address]10-29-2025 09:04-0400 Body eszlgc072.26 kgLisa Aichholz LIGHTING ENGINEER-C Work Phone: 1(020)320-[address] [place], [place] 2831110-29-2025 09:04-0400 Diastolic blood widawtef77 mm[Hg]Brea Aichholz LIGHTING ENGINEER-C Work Phone: 1(031)[address]10-29-2025 09:04-0400 Heart rate96 /minLisa Aichholz LIGHTING ENGINEER-C Work Phone: 1(290)[address]10-29-2025 09:04-0400 Respiratory rate22 /minLisa Aichholz LIGHTING ENGINEER-C Work Phone: 1(399)005-[address] [place], [place] 2831110-29-2025 09:04-0400 Systolic blood mmpxlviv39 mm[Hg]Brea Aichholz LIGHTING ENGINEER-C Work Phone: 1(046)739-[address] [place], [place] 2831107-30-2025 05:21-0400 Body euwxhb535.2 kgMarshall Mckeon MD Work Phone: [address] [place], [place] 8773607-30-2025 04:26-0400 Diastolic blood fblbpykt84 mm[Hg]Marshall Mckeon MD Work Phone: [address] [place], [place] 8773607-30-2025 04:26-0400 Heart rate87 /Juanis Mckeon MD Work Phone: [facility]07-30-2025 04:26-0400 Inhaled oxygen flow rate3 L/Juanis Mckeon MD Work Phone: [facility]07-30-2025 04:26-0400 Respiratory rate17 /Juanis Mckeon MD Work Phone: 1(419)557-[address] [place], [place] 1202207-30-2025 04:26-0400 SaO2% (BldA) [Mass fraction]97 %Marshall Mckeon MD Work Phone: 1(683)495-[address] [place], [place] 1202207-30-2025 04:26-0400 Systolic blood arazoupw331 mm[Hg]Marshall Mckeon MD Work Phone: 1(469)[address]07-29-2025 23:39-0400 Body uigkyu821.26 cmAalexa Mckeon MD Work Phone: 1(474)[address]07-29-2025 23:39-0400 Body lannsxjzsuu61 [degF]Marshall Mckeon MD Work Phone: 1(519)[address]07-29-2025 23:39-0400 Body xxhhie987.2 kgMarshall Mckeon MD Work Phone: 1(768)[address]07-29-2025 23:39-0400 Diastolic blood sbqihria41 mm[Hg]Marshall Mckeon MD Work Phone: 1(313)[address]07-29-2025 23:39-0400 Respiratory rate17 /minMarshall Mckeon MD Work Phone: 1(238)439-[address] [place], [place] 1202207-29-2025 23:39-0400 SaO2% (BldA) [Mass fraction]97 %Marshall Mckeon MD Work Phone: 9(805)383-[address] [place], [place] 1202207-29-2025 23:39-0400 Systolic blood qbwzxaug251 mm[Hg]Marshall Mckeon MD Work Phone: 1(802)813-[address] [place], [place] 1202207-29-2025 09:34-0400 Diastolic blood ijsnzjto00 mm[Hg]Brea Jj LIGHTING ENGINEER Work Phone: [facility] CenterUxsxuzqpau90-26-9905 09:34-0400Systolic blood ronufsfv37 mm[Hg]Brea Jj LIGHTING ENGINEER Work Phone: [facility] CenterNxstooqgyc96-62-6404 09:02-0400Body mass index (BMI) [Ratio]37.18 kg/m2Lisa Aichholz LIGHTING ENGINEER Work Phone: [facility] CenterSbozrbqfbc63-41-3308 09:02-0400Body temperature 98.1 [degF]Brea Cheleholz LIGHTING ENGINEER Work Phone: [facility] CenterFapluawvis74-69-1955 09:02-0400Body qgrqoj963.22 kgLisa Angelyhholz LIGHTING ENGINEER Work Phone: [facility] CenterZhcqvzmodk50-33-2294 09:02-0400Heart rate83 /min Brea Cheleholz LIGHTING ENGINEER Work Phone: [place] [address]Idbskyuhxc04-98-8719 09:02-0400Respiratory rate20 /minLisa Aichholz LIGHTING ENGINEER Work Phone: [facility] CenterVkfzpnssca12-02-0470 09:02-1344AaY8% (BldA) [Mass fraction]96 %Brea Cheleholz LIGHTING ENGINEER Work Phone: [facility] CenterLpksdwdczt31-56-8716 09:57-0400Body mass index (BMI) [Ratio]37.39 kg/m2Lisa Angelyhholz LIGHTING ENGINEER Work Phone: [facility] CenterZwalbwpmjt59-26-5103 09:57-0400Body temperature 98.1 [degF]Brea Cheleholz LIGHTING ENGINEER Work Phone: [facility] CenterWpyvhpvlkr64-17-4983 09:57-0400Body hpinws919.85 kgLisa Cheleholz LIGHTING ENGINEER Work Phone: [place] [address]Lklphefgav84-86-1153 09:57-0400Diastolic blood kcinqsfd68 mm[Hg]Brea Angelyhholz LIGHTING ENGINEER Work Phone: [place] [address]Uxctcavhtw24-92-1814 09:57-0400Heart rate93 /min Brea Aichholz LIGHTING ENGINEER Work Phone: [place] [address]Fszfiiiixi96-77-4628 09:57-0400Respiratory rate20 /minLisa Aichholz LIGHTING ENGINEER Work Phone: [place] [address]Oftlybrwza27-44-7293 09:57-7201XkD0% (BldA) [Mass fraction]92 %Brea Cheleholz LIGHTING ENGINEER Work Phone: [facility] CenterYggtzhtiuk18-83-4332 09:57-0400Systolic blood bdologlg516 mm[Hg]Brea Angelyhholz LIGHTING ENGINEER Work Phone: [facility] CenterVlfrfczbiq73-70-5810 09:46-0500Body zhotmw554.3 cmLisa Aichholz LIGHTING ENGINEER Work Phone: [facility] CenterUjlemxqjvh49-05-2870 09:46-0500Body mass index (BMI) [Ratio]36.59 kg/m2Lisa Angelyhholz LIGHTING ENGINEER Work Phone: [facility] CenterMkfcqyqcnn64-95-0740 09:46-0500Body temperature 98.6 [degF]Brea Cheleholz LIGHTING ENGINEER Work Phone: [facility] CenterEmltmxzxtg84-17-7363 09:46-0500Body udckat699.4 kgLisa Angelyhholz LIGHTING ENGINEER Work Phone: [facility] CenterBalzjzozzo46-54-1776 09:46-0500Diastolic blood cwyxhamv75 mm[Hg]Brea Angelyhholz LIGHTING ENGINEER Work Phone: [facility] CenterQbdnlnnvlj95-82-2989 09:46-0500Heart aphm800 /min Brea Angelyhholz LIGHTING ENGINEER Work Phone: [facility] CenterBjgebtyyqm26-91-5946 09:46-0500Respiratory rate20 /minLisa Cheleholz LIGHTING ENGINEER Work Phone: [facility] CenterMapehxpnrg45-87-0736 09:46-7946LpT5% (BldA) [Mass fraction]94 %Brea Aichholz LIGHTING ENGINEER Work Phone: [facility] CenterVmhixittsv57-20-0769 09:46-0500Systolic blood nlgmeuoh307 mm[Hg]Brea Aichholz LIGHTING ENGINEER Work Phone: [facility] CenterWpulhflizm94-50-9870 09:03-0500Body zyoppw778.3 Fanyisa Aichholz LIGHTING ENGINEER Work Phone: [facility] CenterCqsyoifnzl62-79-0376 09:03-0500Body mass index (BMI) [Ratio]36.68 kg/m2Brea Applez LIGHTING ENGINEER Work Phone: [facility] CenterBgbvwkuntl05-18-9455 09:03-0500Body temperature 98.49 [degF]Brea Applez LIGHTING ENGINEER Work Phone: [facility] CenterDcqbiteayr17-33-5703 09:03-0500Body .67 kgLisa Cheleholz LIGHTING ENGINEER Work Phone: [facility] CenterCwucqahmdf36-69-4881 09:03-0500Diastolic blood zafqopfh43 mm[Hg]Brea Zechariahz LIGHTING ENGINEER Work Phone: [facility] CenterFciffmsdof89-74-9851 09:03-0500Heart yfki657 /min Brea Zechariahz LIGHTING ENGINEER Work Phone: [facility] CenterJzetzshovg04-00-7755 09:03-0500Respiratory rate20 /minLisa Applez LIGHTING ENGINEER Work Phone: [facility] CenterQavyqmecek78-68-8573 09:03-2144FdP1% (BldA) [Mass fraction]93 %Brea Zechariahz LIGHTING ENGINEER Work Phone: [facility] CenterImngslttqh90-97-8932 09:03-0500Systolic blood mm[Hg]Brea Zechariahz LIGHTING ENGINEER Work Phone: [facility] CenterGtvfiocwut64-19-2059 18:18-7134GyZ0% (BldA) [Mass fraction]93 %Brea Cheleholz LIGHTING ENGINEER Work Phone: [facility] CenterCjjdetpqpg01-34-6642 18:01-0500Body .3 Fanyisa Cheleholz LIGHTING ENGINEER Work Phone: [facility] CenterBlytokgzst91-14-1511 18:01-0500Body mass index (BMI) [Ratio]38.87 kg/m2Jacquelinesa Cheleholz LIGHTING ENGINEER Work Phone: [facility] CenterWuszhnukjg52-34-5165 18:01-0500Body temperature 97.81 [degF]Brea Jj LIGHTING ENGINEER Work Phone: [facility] CenterRhuitylhln84-20-3882 18:01-0500Body mpkedi848.39 kgLisa Cheleholz LIGHTING ENGINEER Work Phone: [facility] CenterZvvmhochef20-49-6649 18:01-0500Diastolic blood ujbugzex37 mm[Hg]Brea Zechariahz LIGHTING ENGINEER Work Phone: [facility] CenterCymucnwlfg79-46-0476 18:01-0500Heart rate96 /min Brea Cheleholz LIGHTING ENGINEER Work Phone: [facility] CenterFwesrsaiot77-96-7883 18:01-0500Respiratory rate18 /minLisa Cheleholz LIGHTING ENGINEER Work Phone: [facility] CenterLuaodukodt24-95-5324 18:01-0500Systolic blood gkzlerqj426 mm[Hg]Brea Applez LIGHTING ENGINEER Work Phone: [facility] CenterPlsdbetqjw75-64-8217 09:22-0400Body cqxsmu636.3 cmLisa Zechariahz LIGHTING ENGINEER Work Phone: [facility] CenterGqkzstubdd02-76-7478 09:22-0400Body mass index (BMI) [Ratio]38.45 kg/m2Brea Applez LIGHTING ENGINEER Work Phone: [facility] CenterZvodyoopha77-91-2519 09:22-0400Body temperature 98.29 [degF]Brea Applez LIGHTING ENGINEER Work Phone: [place] [address]Sibvnqjnqh46-23-4986 09:22-0400Body utncwb370.12 kgLisa Cheleholz LIGHTING ENGINEER Work Phone: [place] [address]Rtnweagcxh67-87-4795 09:22-0400Diastolic blood mm[Hg]Brea Cheleholz LIGHTING ENGINEER Work Phone: [place] [address]Dyzvqcmrxe55-30-5268 09:22-0400Heart rate83 /min Brea Cheleholz LIGHTING ENGINEER Work Phone: [place] [address]Qoajbalmoe46-93-9913 09:22-0400Respiratory rate19 /Uri Jj LIGHTING ENGINEER Work Phone: [facility] CenterBtekhaidyw56-37-4713 09:22-0188SlA3% (BldA) [Mass fraction]90 %Brea Jj LIGHTING ENGINEER Work Phone: [facility] CenterNbjwwnfkma30-01-2833 09:22-0400Systolic blood pjataihq407 mm[Hg]Brea Jj LIGHTING ENGINEER Work Phone: [facility] CenterJfizrbmxeo85-26-0728 10:37-0400Body temperature 98.42 [degF]Mariama Barcenas [address]09-23-2024 10:37-0400 Diastolic blood mm[Hg]Mariama Barcenas [address]09-23-2024 10:37-0400Heart rate94 /Ashley Barcenas [address] [place], [place] 2820809-23-2024 10:37-0400Mean blood mm[Hg]Mariama Barcenas [address] [place], [place] 2820809-23-2024 10:37-0400 Respiratory rate16 /Ashley Barcenas [facility]09-23-2024 10:37-8704WoD6% (BldA) [Mass fraction]92 %Mariama Barcenas [address] [place], [place] 2820809-23-2024 10:37-0400 Systolic blood ygajklzc626 mm[Hg]Mariama Barcenas [address] [place], [place] 2820803-18-2024 11:17-0400Body fynifpyxpoe17.7 [degF]Mariama Barcenas [facility]03-18-2024 11:17-0400 Diastolic blood wolqqoms69 mm[Hg]Mariama Barcenas [facility]03-18-2024 11:17-0400Heart svkr559 /minMariama Barcenas [facility]03-18-2024 11:17-0400Mean blood qugrcgay59 mm[Hg]Mariama Barcenas [facility]03-18-2024 11:17-0400 Respiratory rate18 /minMariama Barcenas [facility]03-18-2024 11:17-1210VgL3% (BldA) [Mass fraction]94 %Mariama Barcenas [facility]03-18-2024 11:17-0400 Systolic blood mfumxnwq808 mm[Hg]Mariama Barcenas [facility]02-05-2024 08:48-0500Body fjyckn411.3 Fanyisa Анна LIGHTING ENGINEER Work Phone: [facility] CenterKjidggwmpp83-73-7808 08:48-0500Body mass index (BMI) [Ratio]37.51 kg/m2Lisa Zechariahz LIGHTING ENGINEER Work Phone: [facility] CenterDuzbeiewlm65-52-0108 08:48-0500Body temperature 97.11 [degF]Brea Zechariahz LIGHTING ENGINEER Work Phone: [facility] CenterDxnohmtaew82-80-0525 08:48-0500Body blsgka166.21 kgLisa Angelyhholz LIGHTING ENGINEER Work Phone: [facility] CenterBkeisxptuy95-66-2249 08:48-0500Diastolic blood vbczwexj36 mm[Hg]Brea Zechariahz LIGHTING ENGINEER Work Phone: noH[facility] HospitalQiansmcpho49-79-3140 08:48-0500Heart pjtw473 /min Brea Zechariahz LIGHTING ENGINEER Work Phone: noH[facility] HospitalMjvwnoglyp41-27-8025 08:48-0500Respiratory rate17 /minLisa Aichholz LIGHTING ENGINEER Work Phone: [facility] CenterTygxgdmpbt06-79-4969 08:48-9366GmE7% (BldA) [Mass fraction]99 %Brea Elainerashmi LIGHTING ENGINEER Work Phone: [facility] CenterFkcfkpysbg35-07-2652 08:48-0500Systolic blood ynndtmcy747 mm[Hg]Brea Elainerashmi LIGHTING ENGINEER Work Phone: [facility] CenterIghjsvzzui16-44-4487 21:50-0500Diastolic blood kippvdzu49 mm[Hg]Demond Holly [address] [place], [place] 2820811-26-2023 21:50-0500Heart rate95 /minTim Avni [address] [place], [place] 2820811-26-2023 21:50-0500Mean blood rmudrlbx90 mm[Hg]Demond Holly [address] [place], [place] 2820811-26-2023 21:50-0500 Respiratory rate22 /minTim Avni [address] [place], [place] 2820811-26-2023 21:50-2413UlA0% (BldA) [Mass fraction]97 %Demond Holly [address] [place], [place] 2820811-26-2023 21:50-0500 Systolic blood hawjnouo733 mm[Hg]Demond Holly [address] [place], [place] 2820811-26-2023 20:37-0500 Diastolic blood ppsvzobw89 mm[Hg]Demond Holly [address] [place], [place] 2820811-26-2023 20:37-0500Heart rate94 /minTim Avni [address] [place], [place] 2820811-26-2023 20:37-0500Mean blood lumoxbtr26 mm[Hg]Demond Holly [address] [place], [place] 2820811-26-2023 20:37-0500 Respiratory rate18 /minTim Avni [address] [place], [place] 3872211-26-2023 20:37-2508RqM6% (BldA) [Mass fraction]97 %Demond Holly [address] [place], [place] 3872211-26-2023 20:37-0500 Systolic blood wdwptreu667 mm[Hg]Demond Holly [address] [place], [place] 3872211-26-2023 19:50-0500 Diastolic blood ycqxrkor48 mm[Hg]Demond Holly [address] [place], [place] 3872211-26-2023 19:50-0500Heart lffc963 /minTim Avni [address] [place], [place] 3872211-26-2023 19:50-0500Mean blood usaryuau655 mm[Hg]Demond Holly [address] [place], [place] 3872211-26-2023 19:50-0500 Respiratory rate22 /minTim Avni [address] [place], [place] 3872211-26-2023 19:50-9792AoC5% (BldA) [Mass fraction]98 %Demond Holly [address] [place], [place] 3872211-26-2023 19:50-0500 Systolic blood ygdrxxgy885 mm[Hg]Demond Holly [address] [place], [place] 3872211-26-2023 18:23-0500Body nkzyoevrvef72.24 [degF]Demond Holly [address] [place], [place] 2820811-26-2023 18:23-0500Heart cncz555 /minTim Avni [address] [place], [place] 2820811-26-2023 18:23-0500 Respiratory rate24 /minTim Avni [address] [place], [place] 3872211-09-2023 20:26-0500Body ghbexmjeifu11.06 [degF]Ramses [facility] [address] [place], [place] 2820811-09-2023 20:26-0500 Diastolic blood amjsxkga82 mm[Hg][employer] [address]11-09-2023 20:26-0500Heart rate81 /minRamses Hair [address] [place], [place] 2820811-09-2023 20:26-0500Mean blood mm[Hg][employer] [address]11-09-2023 20:26-0500 Respiratory rate20 /minRamses Hair [address] [place], [place] 3872211-09-2023 20:26-2100BtG8% (BldA) [Mass fraction]99 %[employer] [address]11-09-2023 20:26-0500 Systolic blood yqhnyxui731 mm[Hg][employer]es [employer] [address] [place], [place] 3872211-09-2023 19:28-0500 Diastolic blood vihcyjbn37 mm[Hg][employer]es [employer] [address] [place], [place] 3872211-09-2023 19:28-0500Heart rate86 /minRamses Hair [address]11-09-2023 19:28-0500Mean blood yaedltkn50 mm[Hg][employer] [employer] [address]11-09-2023 19:28-0500 Respiratory rate18 /minRamses Hair [address] [place], [place] 2820811-09-2023 19:28-9565VnG7% (BldA) [Mass fraction]99 %R[employer]es [employer] [address] [place], [place] 2820811-09-2023 19:28-0500 Systolic blood oohkgdwg862 mm[Hg][employer]es [employer] [address] [place], [place] 3872211-09-2023 18:00-0500 Diastolic blood fdpqofwz32 mm[Hg][employer] [address] [place], [place] 2820811-09-2023 18:00-0500Heart rate92 /minRamses Hair [address] [place], [place] 2820811-09-2023 18:00-0998NkS2% (BldA) [Mass fraction]91 %aRmses Hair [address] [place], [place] 2820811-09-2023 18:00-0500 Systolic blood dmiwocke226 mm[Hg][facility] [address]11-09-2023 16:33-0500Body bjximoyigfs20.24 [degF][employer] [employer] [address] [place], [place] 2820811-09-2023 16:33-0500Heart tpau574 /minRamses Hair [address] [place], [place] 2820811-09-2023 16:33-0500 Respiratory rate24 /minRamses Hair [address] [place], [place] 2820809-19-2023 09:00-0400Blood Pressure LocationMhd Al-Marrawi [address] [place], [place] 5931709-19-2023 09:00-0400Body qjspiwumksk17.06 [degF]Mhd Al-Marrawi [address] [place], [place] 5931709-19-2023 09:00-0400 Diastolic blood zodarofu19 mm[Hg]Mhd Al-Marrawi [address] [place], [place] 5931709-19-2023 09:00-0400Heart rate79 /minMhd Al-Marrawi [address] [place], [place] 5931709-19-2023 09:00-0400Mean blood xoqtoojj65 mm[Hg]Mhd Al-Marrawi [address] [place], [place] 5931709-19-2023 09:00-0400 Respiratory rate18 /minMhd [facility]09-19-2023 09:00-8761VpB8% (BldA) [Mass fraction]93 %d [facility]09-19-2023 09:00-0400 Systolic blood cvhpnejb999 mm[Hg][facility] [address] [place], [place] 5931708-29-2023 10:00-0400[facility]2023 10:00-0400Body kimamwaycxm26.06 [degF][facility]08-29-2023 10:00-0400Diastolic blood vtiqavcy50 mm[Hg][facility]08-29-2023 10:00-0400Heart zvup513 /minOhio [facility]08-29-2023 10:00-0400Mean blood bvbyeknw45 mm[Hg][facility]08-29-2023 10:00-0400 Respiratory rate16 /minOhio [facility] System08-29-2023 10:00-2012XaI3% (BldA) [Mass fraction]92 %[facility]08-29-2023 10:00-0400Systolic blood bvkiqvxm140 mm[Hg][facility]08-18-2023 17:06-0400Hourly Rounding Kerrianefo OJUKWU [facility]08-18-2023 17:06-0400 Promise to ReturnMbanefo OJUKWU [facility]08-18-2023 16:00-0400 Hourly RoundingKerrianefo OJUKWU [address]08-18-2023 16:00-0400 Promise to ReturnMbanefo OJUKWU [address] [place], [place] 3872208-18-2023 15:42-0400Heart rate82 /minMbanefo OJUKWU [address] [place], [place] 3872208-18-2023 15:42-0902JlV2% (BldA) [Mass fraction]95 %Mbanefo OJUKWU [address] [place], [place] 3872208-18-2023 15:42-0400 Diastolic blood bzactpzq55 mm[Hg]Mbanefo OJUKWU [address] [place], [place] 3872208-18-2023 15:42-0400Mean blood zomnxkbz52 mm[Hg]Mbanefo OJUKWU [address] [place], [place] 3872208-18-2023 15:42-0400 Systolic blood sdcoonyf828 mm[Hg]Mbanefo OJUKWU [address] [place], [place] 3872208-18-2023 15:41-0400Body pwchlocmkmh21.88 [degF]Mbanefo OJUKWU [address] [place], [place] 3872208-18-2023 15:05-0400 Hourly RoundingMbanefo OJUKWU [address] [place], [place] 3872208-18-2023 15:05-0400 Promise to ReturnMbanefo OJUKWU [address] [place], [place] 3872208-18-2023 14:00-2373OwS4% (BldA) [Mass fraction]96 %Mbanefo OJUKWU [address] [place], [place] 3872208-18-2023 12:53-0400Heart rate87 /minMbanefo OJUKWU [address] [place], [place] 3872208-18-2023 12:53-0400 Respiratory rate18 /minMbanefo OJUKWU [address] [place], [place] 3872208-18-2023 12:48-7313JjS8% (BldA) [Mass fraction]95 %Mbanefo OJUKWU [address] [place], [place] 3872208-18-2023 12:44-0400Heart rate86 /minMbanefo OJUKWU [address] [place], [place] 3872208-18-2023 12:44-0400 Respiratory rate18 /minMbanefo OJUKWU [address] [place], [place] 3872208-18-2023 12:00-0400 Diastolic blood wvhlvnux88 mm[Hg]Mbanefo OJUKWU [address] [place], [place] 3872208-18-2023 12:00-0400Mean blood xlyzhbgj02 mm[Hg]Mbanefo OJUKWU [address] [place], [place] 3872208-18-2023 12:00-0400 Systolic blood bqjdgnjo406 mm[Hg]Mbanefo OJUKWU [address] [place], [place] 3872208-18-2023 09:19-0400 Diastolic blood rzyetagr01 mm[Hg]Mbanefo OJUKWU [address] [place], [place] 3872208-18-2023 09:19-0400 Systolic blood mm[Hg]Mbanefo OJUKWU [address] [place], [place] 3872208-18-2023 09:16-0400gluc 173 mg/dLMbanefo OJUKWU [address] [place], [place] 3872208-18-2023 07:33-0400Mean blood bdsdismf10 mm[Hg]Mbanefo OJUKWU [address] [place], [place] 5062608-18-2023 07:33-0400Body jjgswlivqln79.88 [degF]Mbanefo OJUKWU [address] [place], [place] 3872208-18-2023 04:00-0400Blood Pressure LocationMbanefo OJUKWU [address] [place], [place] 3872208-18-2023 04:00-0400Body hvzvwvibkws40.24 [degF]Mbanefo OJUKWU [address] [place], [place] 3872208-18-2023 04:00-0400Mean blood vhllkcyd26 mm[Hg]Mbanefo OJUKWU [address] [place], [place] 3872208-18-2023 00:00-0400Body gqyzbombyad01.88 [degF]Mbanefo OJUKWU [address] [place], [place] 3872208-17-2023 22:48-0400Blood Pressure LocationKerrianefo OBECCAKWU [address] [place], [place] 3872208-17-2023 22:48-0400Body rioxmrwtdta72.24 [degF]Mbanefo OJUKWU [address] [place], [place] 3872208-17-2023 22:48-0400Heart rate80 /minMbanefo OJUKWU [address] [place], [place] 3872208-17-2023 21:42-0400Mean blood mm[Hg]Mbanefo OJUKWU [address] [place], [place] 3872208-17-2023 21:42-0400 Respiratory rate18 /minMbanefo OJUKWU [address] [place], [place] 3872208-17-2023 20:45-0400Mean blood lmijopgm10 mm[Hg]Mbanefo OJUKWU [address] [place] [address] Qurnmk90-54-5258 20:45-0400 Respiratory rate18 /minMbanefo OJUKWU [facility]08-17-2023 19:39-0400 Respiratory rate18 /minMbanefo OJUKWU [facility]08-17-2023 15:51-0400Heart dpve171 /minMbanefo OJUKWU [facility]08-17-2023 15:51-0400 Respiratory rate22 /minMbanefo OJUKWU [facility] Encounters Encounter DateEncounter TypeCare ProviderFacilityStart: 09-09-2025 End: 35-60-9727Vsljvjylj department patient visitChberhane Santos Facility:[facility]tart: 08-28-2025 End: 56-15-6890ahjajldppvAwbc J Aichholz LIGHTING ENGINEER-C Work Phone: -[facility] CleStart: 08-28-2025 End: 91-05-7480Uuqhpwh encounter procedureLisa Connie Jj LIGHTING ENGINEER-C-[facility] Work Phone: Start: 08-28-2025 End: 01-91-1366hubtvhgtdcJqvk J Aichholz LIGHTING ENGINEER-C Work Phone: -[facility]Start: 08-28-2025 End: 33-12-6238Tlbgosla ReferredLisa Connie Jj LIGHTING ENGINEER-C-[facility] [place] Work Phone: Start: 23-77-8813Zrdxyjc encounter statusLisa Jj LIGHTING ENGINEER-C Work Phone: [facility] Daytontart: 34-65-3836Hvd- patient / Non-visitLisa Connie Jj LIGHTING ENGINEER-C-[facility] Work Phone: Start: 12-24-7740Xnk-patient / Non-visitSheldon Mccann DO-[facility] Work Phone: Start: 06-24-2025 End: 82-43-3335Cwmqnkedz Result EncounterGeneric External Data ProviderNOMS External Department UnsolicitedStart: 06-24-2025 End: 63-37-9637Iaacjyxgd Result EncounterGeneric External Data ProviderNOMS External Department UnsolicitedStart: 06-05-2025 End: 75-21-9082Amqtobenf Result EncounterLisa Aichholz LIGHTING ENGINEER Work Phone: [facility] External Department UnsolicitedStart: 06-05-2025 End: 39-39-9780Ibmjrunco Result EncounterLisa Aichholz LIGHTING ENGINEER Work Phone: [facility] External Department UnsolicitedStart: 06-05-2025 End: 54-32-7496DbqpfbOaol Aichholz LIGHTING ENGINEER Work Phone: [facility] CWM FMComment on above:HypomagnesemiaStart: 05-30-2025 End: 46-10-6910XxzuamYoiw Aichholz LIGHTING ENGINEER Work Phone: [facility] CWM FMComment on above:Hypomagnesemia (Primary Dx); LAINA (acute kidney injury)Start: 05-29-2025 End: 12-10-0593Ugoanyipo Result EncounterLisa Aichholz LIGHTING ENGINEER Work Phone: [facility] External Department UnsolicitedStart: 05-29-2025 End: 57-87-9615Terhkhbgi Result EncounterLisa Aichholz LIGHTING ENGINEER Work Phone: [facility] External Department UnsolicitedStart: 05-28-2025 End: 98-02-9942Cuybqwxkjn and management of Kyle Mckeon MD-[facility] Work Phone: Start: 05-28-2025 End: 38-69-2598Dqzxjo flowsheetLisa Aichholz LIGHTING ENGINEER Work Phone: [facility] CWM FMStart: 05-28-2025 End: 80-73-8754Sbymbm flowsheetBrea Jj LIGHTING ENGINEER Work Phone: [facility] CWM FMStart: 05-28-2025 End: 82-32-5328Aizogeucc Result EncounterLi Angelyheatherrashmi LIGHTING ENGINEER Work Phone: [facility] External Department UnsolicitedStart: 05-28-2025 End: 76-39-3086Vyfquabg Result EncounterBrea Angelyheatherrashmi LIGHTING ENGINEER Work Phone: [facility] External Department UnsolicitedStart: 05-28-2025 End: 92-33-3716rpkmbxdgziVfyjg Karki MD Work Phone: [facility] Work Phone: Start: 05-28-2025 End: 55-23-2273Ijvealqp ReferredBrea Jj LIGHTING ENGINEER-C-[facility] Start: 05-28-2025 End: 32-70-7989Xkzauu outpatient visit 25 minutesLisa Jj LIGHTING ENGINEER Work Phone: [facility] CWM FMComment on above:Vomiting and diarrhea (Primary Dx); Restless leg syndrome; ROLANDO (obstructive sleep apnea); Essential (primary) hypertension ; Gastroesophageal reflux disease without esophagitis; Edema of both lower extremities; Type 2 diabetes mellitus without complication, without long-term current use of insulin ([facility]); Class 2 severe obesity due to excess calories with serious comorbidity and body mass index (BMI) of37.0 to 37.9 in adult ([facility]-HCC); Mixed hyperlipidemia ; Anxiety and depression ; Primary hypertensionStart: 05-28-2025 End: 12-92-3115elnvkbhtquEYXZ AICHHOLZNot AvailableStart: 05-10-2025 End: 43-35-2604EmenwmXotp Aichholz LIGHTING ENGINEER Work Phone: [facility] CWM FMComment on above:Anxiety and depression ; Restless leg syndrome; Other insomniaStart: 04-30-2025 End: 39-58-5178Hpdgnbogz Result EncounterGeneric External Data ProviderNOMS External Department UnsolicitedStart: 04-30-2025 End: 38-37-4452Ipxjirclf Result EncounterGeneric External Data ProviderNOMS External Department UnsolicitedStart: 04-17-2025 End: 48-09-4132Qrozolynq Result EncounterLisa Elainerashmi LIGHTING ENGINEER Work Phone: n[facility] External Department UnsolicitedStart: 04-17-2025 End: 44-93-8366Engiqmxub Result EncounterLisa Elainerashmi LIGHTING ENGINEER Work Phone: [facility] External Department UnsolicitedStart: 04-04-2025 End: 61-23-6412FbhyzrIuln Aichholz LIGHTING ENGINEER Work Phone: [facility] CWM FMComment on above:Vitamin deficiency (Primary Dx)Start: 03-28-2025 End: 61-28-0278gekfscspawGJECKettering Health Behavioral Medical Centertart: 03-06-2025 End: 15-05-6661IwypyiIgdp Zechariahz LIGHTING ENGINEER Work Phone: NOPV CWM FMComment on above:Osteopenia after menopause (Primary Dx)Start: 02-25-2025 End: 24-76-5719Bdwfpm flowsheetJacquelinesa Elaineholz LIGHTING ENGINEER Work Phone: [facility] CWM FMStart: 02-25-2025 End: 01-98-6651Xuqfnh flowsheetBrea Elaineholz LIGHTING ENGINEER Work Phone: NOFK CWM FMStart: 02-25-2025 End: 12-63-1540Gfhfbcq encounter statusLisa Cheleholz LIGHTING ENGINEER Work Phone: noms HealthcareStart: 02-25-2025 End: 29-49-6611Jogydjpv preventive med est patient 40-64yrsLisa Jj LIGHTING ENGINEER Work Phone: NOPZ CWM FMComment on above:Encounter for wellness examination in adult (Primary Dx); Essential (primary) hypertension (CMS/HCC); Gastroesophageal reflux disease without esophagitis; Type 2 diabetes mellitus without complication, without long-term current use of insulin; Iron deficiency anemia, unspecified iron deficiency anemia type; Anxiety and depression ([facility]); Mixed hyperlipidemia ([facility]); Edema of both lower extremities; Restless leg syndrome; Primary hypertension ([facility]); Other insomnia; COPD exacerbation ([facility])Start: 02-25-2025 End: 63-11-4299qvjeswguqnEBOM AICHHOLZNot AvailableStart: 02-06-2025 End: 40-93-6503MigxorXpbl Aichholz LIGHTING ENGINEER Work Phone: [facility] CWM FMComment on above:Edema of both lower extremities (Primary Dx)Start: 01-28-2025 End: 73-31-6553NbtkfuWnyk Aichholz LIGHTING ENGINEER Work Phone: [facility] CWM FMComment on above:Anxiety and depression ([facility])Start: 01-14-2025 End: 52-23-4657Xxt-admission [facility] Start: 01-14-2025 End: 57-51-1483hygyxmkbeeZupbttdvH[facility] ERiFacility:[facility] DHStart: 12-31-2024 End: 58-90-9335Vsojwl flowsheetNatalie A Felter PROTEIN SPECIALIST-PEDIATRIC NEUROPSYCHOLOGIST Work Phone: noms SWS DERMStart: 12-31-2024 End: 10-50-4986Qrcvdc flowsheetNatalie A Felter PROTEIN SPECIALIST-PEDIATRIC NEUROPSYCHOLOGIST Work Phone: noms SWS DERMStart: 12-31-2024 End: 06-84-3652VofaeeUfdl Aichholz LIGHTING ENGINEER Work Phone: [facility] CWM FMComment on above:Edema of both lower extremities (Primary Dx)Start: 12-31-2024 End: 97-95-7587Okxvsw outpatient visit 15 minutesNatalie A Felter PROTEIN SPECIALIST-PEDIATRIC NEUROPSYCHOLOGIST Work Phone: [facility] SWS DERMComment on above:Other atopic dermatitis Start: 12-31-2024 End: 54-66-7778mvcwlsxekiOSRHAEN A FELTERNot AvailableStart: 12-26-2024 End: 24-63-1146Mndnqa outpatient visit 25 minutesLisa Jj LIGHTING ENGINEER Work Phone: n[facility] CWM FMComment on above:Irritable bowel syndrome with diarrhea (Primary Dx); Centrilobular emphysema (CMS/HCC); Chronic respiratory failure with hypoxia ([facility]); Essential (primary) hypertension ([facility]); Gastroesophageal reflux disease without esophagitis; Class 2 severe obesity due to excess calories with serious comorbidity and body mass index (BMI) of37.0 to 37.9 in adult ([facility]); Occult blood positive stool; Tobacco dependence syndrome; Anxiety and depression ([facility])Start: 12-26-2024 End: 12-58-4218mvphcdwhndQMHK AICHHOLZNot AvailableStart: 12-25-2024 End: 05-26-5875Ilslxv OnlyLisa Анна LIGHTING ENGINEER Work Phone: noms CWM FMComment on above:Diarrhea, unspecified type (Primary Dx); Occult blood positive stool; Weight loss, unintentionalStart: 12-21-2024 End: 17-12-1573Pfayvhhtd Result EncounterLisa Zechariahz LIGHTING ENGINEER Work Phone: noms External Department UnsolicitedStart: 12-21-2024 End: 72-72-8220Cgqeemcpx Result EncounterLisa Angelyhholz LIGHTING ENGINEER Work Phone: noms External Department UnsolicitedStart: 12-10-2024 End: 92-87-5451Hlenpz flowsheetNatalie A Felter PROTEIN SPECIALIST-PEDIATRIC NEUROPSYCHOLOGIST Work Phone: noms SWS DERMStart: 12-10-2024 End: 08-18-1303Ywabry flowsheetNatalie A Felter PROTEIN SPECIALIST-PEDIATRIC NEUROPSYCHOLOGIST Work Phone: noms SWS DERMStart: 12-10-2024 End: 68-44-1623Tskegl outpatient new 45 minutesNatalie A Felter PROTEIN SPECIALIST-PEDIATRIC NEUROPSYCHOLOGIST Work Phone: NOSI SWS DERMComment on above:Other atopic dermatitis; Lichen simplex chronicusStart: 12-10-2024 End: 36-71-2239mbvoyieippWUMTUJV A FELTERNot AvailableStart: 12-05-2024 End: 50-26-1334DsctffEpbf Aichholz LIGHTING ENGINEER Work Phone: NOQW CWM FMComment on above:Arthritis (Primary Dx) Start: 12-04-2024 End: 40-19-3328Czupvaxni Result EncounterLisa Aichholz LIGHTING ENGINEER Work Phone: NOCM External Department UnsolicitedStart: 12-04-2024 End: 27-94-6843Odesqresv Result EncounterLisa Aichholz LIGHTING ENGINEER Work Phone: NOXV External Department UnsolicitedStart: 12-03-2024 End: 11-88-9546Hlimgg flowsheetLisa Aichholz LIGHTING ENGINEER Work Phone: NOLX CWM FMStart: 12-03-2024 End: 76-20-5299Slsibu flowsheetLisa Aichholz LIGHTING ENGINEER Work Phone: NOPB CWM FMStart: 12-03-2024 End: 96-03-2329YqurapTbnn Aichholz LIGHTING ENGINEER Work Phone: NOBR CWM FMComment on above:Anxiety and depression (CMS/HCC); Restless leg syndrome; Other insomniaStart: 12-03-2024 End: 58-80-1710Liipxk outpatient visit 25 minutesLisa Aichholz LIGHTING ENGINEER Work Phone: NOHA CWM FMComment on above:Weight loss, unintentional (Primary Dx); Chronic respiratory failure with hypoxia (CMS/HCC); Morbid (severe) obesity due to excess calories (CMS/HCC); Essential (primary) hypertension (CMS/HCC); Class 2 severe obesity due to excess calories with serious comorbidity and body mass index (BMI) of37.0 to 37.9 in adult (CMS/HCC); Rash; Tobacco dependence syndrome; Anxiety and depression (CMS/HCC); Mixed hyperlipidemia ([facility]/HCC); Iron deficiency anemia, unspecified iron deficiency anemia type; Restless leg syndrome; Primary hypertension ([facility]/HCC); Gastroesophageal reflux disease without esophagitis; Type 2 diabetes mellitus without complication, without long-term current use of insulin ([facility]); Edema of both lower extremities; Nausea and vomiting, unspecified vomiting type; Diarrhea, unspecified typeStart: 12-03-2024 End: 02-11-7590bmrxdtxgrjJGKT ANGELYHHOLZNot AvailableStart: 10-29-2024 End: 22-03-4251Rlhbkt outpatient visit 25 minutesLisa Jj LIGHTING ENGINEER Work Phone: NOJG CWM FMComment on above:Rash (Primary Dx); Essential (primary) hypertension ([facility]); Edema of both lower extremities; Class 2 severe obesity due to excess calories with serious comorbidity and body mass index (BMI) of37.0 to 37.9 in adult ([facility]); ROLANDO (obstructive sleep apnea); Type 2 diabetes mellitus without complication, without long-term current use of insulin ([facility]); Gastroenteritis; Iron deficiency anemia, unspecified iron deficiency anemia typeStart: 10-29-2024 End: 33-65-8915nijrmkposfPXBW AICHHOLZNot AvailableStart: 10-04-2024 End: 30-46-4869HitskoVilu Aichholz LIGHTING ENGINEER Work Phone: noms CWM FMComment on above:Gastroesophageal reflux disease without esophagitisStart: 09-11-2024 End: 97-34-7134CrctcvQqsaTonia SANTORO CWM FMComment on above:Mixed hyperlipidemia ([facility]/HCC)Start: 09-06-2024 End: 44-52-2652KvolfbRocg Aichholz LIGHTING ENGINEER Work Phone: NOMS CWM FMComment on above:Osteopenia after menopause (Primary Dx)Start: 08-02-2024 End: 23-10-1424XfmahlXxdt Aichholz LIGHTING ENGINEER Work Phone: NOPF CWM FMComment on above:Type 2 diabetes mellitus without complication, without long-term current use of insulin ([facility]/HCC) (P rimary Dx); Atherosclerosis of aorta (CMS/HCC)Start: 07-24-2024 End: 15-14-7931Xejsjt flowsheetBrea Jj LIGHTING ENGINEER Work Phone: NOMS CWM FMStart: 07-24-2024 End: 01-84-6190Jujjqv flowsheetBrea Angelyheatherrashmi LIGHTING ENGINEER Work Phone: NOPX CWM FMStart: 07-24-2024 End: 79-01-5325Zmrqyt outpatient visit 25 minutesLi Анна LIGHTING ENGINEER Work Phone: noms CWM FMComment on above:Anxiety and depression (CMS/HCC) (Primary Dx); Mixed hyperlipidemia (CMS/HCC); Restless leg syndrome; Primary hypertension (CMS/HCC); Type 2 diabetes mellitus without complication, without long-term current use of insulin ([facility]); Other insomniaStart: 07-24-2024 End: 38-08-1318fgvkajrjdwMMLV AICHHOLZNot AvailableStart: 07-23-2024 End: 97-32-6291dzyswvibjaZgzwCurry BarcenasFacility:FTMCStart: 07-23-2024 End: 31-70-7433Eapwpsy encounter procedureMariama Barcenas [facility] Start: 14-38-2133zebeoocfzmGizhCurry Barcenas Facility:FTMCStart: 07-16-2024 End: 38-92-3207Ycepram encounter Miya Barcenas [facility] Start: 07-05-2024 End: 14-48-9684GuzkacOrbu Aichholz LIGHTING ENGINEER Work Phone: noms CWM FMComment on above:Gastroesophageal reflux disease without esophagitisStart: 05-29-2024 End: 55-94-9756Vjarqcsdg Result EncounterGeneric External Data ProviderNOMS External Department UnsolicitedStart: 05-29-2024 End: 30-49-8302Hloojpcfs Result EncounterGeneric External Data ProviderNOMS External Department UnsolicitedStart: 04-16-2024 End: 79-82-4035Xijfyphfb Result EncounterLisa Chelerashmi LIGHTING ENGINEER Work Phone: noms External Department UnsolicitedStart: 04-16-2024 End: 35-79-2387Eiprmbzdi Result EncounterLisa Cheleyamilaz LIGHTING ENGINEER Work Phone: noms External Department UnsolicitedStart: 02-13-2024 End: 79-53-2989Xbakabgpw Result EncounterGeneric External Data ProviderNOMS External Department UnsolicitedStart: 02-13-2024 End: 21-56-2024Dixtsuwkf Result EncounterGeneric External Data ProviderNOMS External Department UnsolicitedStart: 01-16-2024 End: 39-46-9248edorhvgklqWsbr Aprillaurence BarcenasFacility:FTMCStart: 01-16-2024 End: 81-00-1525Lmwdawi encounter procedureMariama Rodriguezlaurence Barcenas [facility] Start: 01-09-2024 End: 51-12-6294cltbgbxfggUI [facility] BobFacility:FTMCStart: 01-09-2024 End: 18-53-4859Uovxycq encounter procedureMhsinai Bob [facility] Start: 54-91-0099DstqarUtfl Aichholz LIGHTING ENGINEER Work Phone: noms CWM FMComment on above:Anxiety and depression (CMS/HCC) (Primary Dx); Type 2 diabetes mellitus without complication, without long-term current use of insulin (CMS/HCC); ArthritisStart: 12-05-2023 End: 39-57-5083Xzoout outpatient visit 25 minutesLisa Jj LIGHTING ENGINEER Work Phone: noms CWM FMComment on above:Other insomnia (Primary Dx); ROLANDO (obstructive sleep apnea); COPD mixed type (CMS/HCC); Tobacco dependence syndrome; BMI 37.0-37.9, adult; Anxiety and depression (CMS/HCC); Restless leg syndromeStart: 09-25-2023 End: 48-54-5494Aukknugjr department patient visitDemond Holly [facility] Start: 09-08-2023 End: 62-24-3471Ukoazatai department patient visitRamses PamLakia Hair [facility] Start: 07-19-2023 End: 39-93-2670Jqfmubr encounter procedureMhsinai Bob [facility] Start: 06-28-2023 End: 27-62-8995Injlpqy encounter procedureDemondaashish AnahiFirelands Regional Medical Center Start: 06-16-2023 End: 02-68-1000JgdxzuyotzbJucyxtf OJUKWU [facility] Start: 02-23-2023 End: 50-55-6195djgcrwhscdNB JEFFREY PAY .Facility:Y9Cbrfw: 02-01-2023 End: 98-10-8790vcvyinvbjdEDOLNQ SAMSA .Facility:C5Rklpg: 01-12-2023 End: 14-37-7727hrpycmpxywKYP BREA CHELEHOLDaniaFacility:Z2Ocvnh: 01-03-2023 End: 43-14-5349hkllmjnwacSSI BREA AICHHOLZFacility:V0Mzniq: 11-04-2022 End: 32-27-4495tkvzytaswcYDK BREA AICHHOLZFacility:J4Hluzm: 07-28-2022 End: 20-25-2663qcfubxvizcHBZ BREA AICHHOLZFacility:U6Ilakc: 04-30-2022 End: 72-19-5913bzxkzmvbmqASK BREA AICHHOLZFacility:K4Depmz: 03-26-2022 End: 20-20-8905phqxzneekiIFB BREA AICHHOLZFacility:R6Tnuex: 06-15-2021 End: 30-55-8642qkzkvjvudmYPOMQHJ M BOESFacility:[facility] Procedures DateProcedureProcedure DetailPerforming ClinicianStart: 97-65-2230BP LUNG SCREENING LOW DOSEGeneric External Data ProviderStart: 35-72-8139HEB BASIC METABOLIC PANELLisa Aichholz LIGHTING ENGINEER Work Phone: Start: 04-67-0975AUW MAGNESIUMLisa Aichholz LIGHTING ENGINEER Work Phone: Start: 57-51-2655UGR CBC WITH AUTO DIFFLisa Aichholz LIGHTING ENGINEER Work Phone: Start: 37-96-8794YEQ CBC WITH AUTO DIFFLisa Aichholz LIGHTING ENGINEER Work Phone: Start: 10-07-9413Quaffaq bacterial quanttative colony count urineLisa Aichholz LIGHTING ENGINEER Work Phone: Start: 97-13-8585Gadcerhymo glycosylated o3tHfwe Aichholz LIGHTING ENGINEER Work Phone: Start: 74-95-5286BE ECHO DOPPLER COMPLETEGeneric External Data ProviderStart: 83-70-9354IX TOMOSYNTHESIS SCREENING BILisa Aichholz LIGHTING ENGINEER Work Phone: Start: 83-55-8571WcuuwgyjzpyYpce Aichholz LIGHTING ENGINEER Work Phone: Start: 62-99-6464Xvqlyortgg glycosylated l3lOxbs Aichholz LIGHTING ENGINEER Work Phone: Start: 34-97-6273NCXKUX BLOOD*Brea Aichholz LIGHTING ENGINEER Work Phone: Start: 05-41-1661TIX CBC WITH AUTO DIFFLisa Aichholz LIGHTING ENGINEER Work Phone: Start: 83-04-6857Btztxafnef glycosylated r8xXpfxsa Jj LIGHTING ENGINEER Work Phone: Start: 01-05-8086HE LUNG SCREENING LOW DOSEGeneric External Data ProviderStart: 82-43-9368KI TOMOSYNTHESIS SCREENING BILisa Анна LIGHTING ENGINEER Work Phone: Start: 54-39-8401UnjxsksrjmyYsxz Aichholz LIGHTING ENGINEER Work Phone: Start: 16-91-9145DI PULMONARY FUNCTION TESTGeneric External Data ProviderStart: 59-22-8507YvhbwydrqbkTboc Aichholz LIGHTING ENGINEER Work Phone: Start: 13-12-2325NxqwtlkrutyUdgf Aichholz LIGHTING ENGINEER Work Phone: Start: 70-50-9383Qnxbonvc sectionEzekiel Christian Start: 02-16-0728Vxhlnxby sectionEzekiel ChristianCyst (disorder)Ezekiel ChristianComment on above:Removal of cyst of right foot.Knee region structure (body structure)Ezekiel ChristianComment on above:surgery Plan of Treatment DateCare ActivityDetailAuthorStart: 88-88-1597Fstbbyykb for malignant neoplasm of colonNOMS HealthcareStart: 04-32-0375Dlwhjymdf for malignant neoplasm of cervixNOMS HealthcareStart: 54-97-4818Qieeluhr screeningDiabetes: Retinopathy ScreeningNOMS HealthcareStart: 33-89-7177Ywzyknjre for malignant neoplasm of breastMammogramNOMS HealthcareStart: 46-06-1644Yohkedsmtq A1c measurement Diabetes: Hemoglobin L7AYRDY HealthcareStart: 77-78-9003MywdxcyklAccess Hospital Daytontart: 08-28-2025 End: 45-89-6594Kqyvmzr encounter procedureNOMS [facility] FMStart: 91-21-4647Irixdejtss A1c measurementDiabetes: Hemoglobin T5AIRTV HealthcareStart: 05-05-1625SJBCU-19 Vaccine ( season)COVID-19 Vaccine ( season)NOMS HealthcareStart: 59-08-4787Yoomgujym vaccinationInfluenza Vaccine (#1)[facility] HealthcareStart: 06-26-2025 End: 43-69-6308Pxbqijhru [Mass/volume] in Serum or PlasmaMagnesium Lab Routine Hypomagnesemia Expected: 06/26/2025 (Approximate), Expires: 06/05/2026[facility] Work Phone: Comment on above:Expected: 06/26/2025 (Approximate), Expires: 06/05/2026Start: 06-06-2025 End: 70-79-6035Kwmki metabolic 1998 panel - Serum or PlasmaBasic metabolic panel Lab Routine LAINA (acute kidney injury) Expected: 06/06/2025 (Approximate), Expi res: 06/10/2026[facility] Work Phone: Comment on above:Expected: 06/06/2025 (Approximate), Expires: 06/10/2026Start: 06-06-2025 End: 30-73-2919Sdlacqrno [Mass/volume] in Serum or PlasmaMagnesium Lab Routine Hypomagnesemia LAINA (acute kidney injury) Expected: 06/06/2025 (Approximate), E xpires: 05/30/2026[facility] HealthcareComment on above:Expected: 06/06/2025 (Approximate), Expires: 05/30/2026Start: 85-46-7346Nqakjjrs [facility] Medical Centertart: 30-68-0312ZuorattzfAccess Hospital Daytontart: 05-28-2025 End: 62-29-7020Pdebvktl identified in Urine by CultureRIVERTON HOSPITAL HealthcareComment on above:Expected: 05/28/2025 (Approximate), Expires: 05/28/2026Start: 05-28-2025 End: 70-89-2052PAN W Auto Differential panel - BloodCBC and differential Lab Routine ROLANDO (obstructive sleep apnea) Gastroesophageal reflux disease without esophagitis Expected: 05/28/2025 (Approximate), Expires: 05/28/2026[facility] Work Phone: Comment on above:Expected: 05/28/2025 (Approximate), Expires: 05/28/2026Start: 05-28-2025 End: 17-59-5431Frqpkbeppxscv metabolic 2000 panel - Serum or PlasmaComprehensive metabolic panel Lab Routine Essential (primary) hypertension Edema of both lower extremities Type 2 diabetes mellitus without complication, without long- term current use of insulin (HCC) Mixed hyperlipidemia Expected: 05/28/2025 (Approximate), Expires: 05/28/2026[facility] HealthcareComment on above:Expected: 05/28/2025 (Approximate), Expires: 05/28/2026Start: 05-28-2025 End: 05-00-2740Ithwl 1996 panel - Serum or PlasmaLipid panel Lab Routine Mixed hyperlipidemia Expected: 05/28/2025 (Approximate), Expires: 05/28/2026[facility] HealthcareComment on above:Expected: 05/28/2025 (Approximate), Expires: 05/28/2026Start: 05-28-2025 End: 10-65-9046Olfxygszahnu/Creatinine panel in random UrineMicroalbumin / creatinine, urine ratio Lab Routine Essential (primary) hypertension Type 2 diabetesmellitus without complication, without long-term current use of insulin (HCC) Expected: 05/28/2025 (Approximate), Expires: 05/28/2026[facility] Comment on above:Expected: 05/28/2025 (Approximate), Expires: 05/28/2026Start: 05-28-2025 End: 84-68-2438Mshqscvqmek [Units/volume] in Serum or PlasmaTSH Lab Routine Anxiety and depression Expected: 05/28/2025 (Approximate), Expires: 05/28/2026 NOMS HealthcareComment on above:Expected: 05/28/2025 (Approximate), Expires: 05/28/2026Start: 05-28-2025 End: 32-52-6912Tfpazmuqac complete panel - UrineUrinalysis with reflex microscopic (clean catch) Lab Routine Essential (primary) hypertension Type 2 diabetes mellitus without complication, without long-term current use of insulin (HCC) Expected: 05/28/2025 (Approximate), Expires: 05/28/2026[facility] Comment on above:Expected: 05/28/2025 (Approximate), Expires: 05/28/2026Start: 31-37-0382FzmmaWayne HealthCare Main Campustart: 05-28-2025 End: 13-00-5942Kejqddp encounter procedureNOBEAVER COUNTY [facility] FMComment on above:Restless leg syndrome (Primary Dx); ROLANDO (obstructive sleep apnea); Essential (primary) hypertension ; Gastroesophageal reflux disease without esophagitis; Edema of both lower extremities; Type 2 diabetes mellitus without complication, without long-term current use of insulin ([facility]); Class 2 severe obesity due to excess calories with serious comorbidity and body mass index (BMI) of37.0 to 37.9 in adult ([facility]-HCC); Mixed hyperlipidemia ; Anxiety and depressionStart: 89-54-0382Lzgvkjyhza A1c measurementDiabetes: Hemoglobin S5PIEPRSaint Mary's Health CenterStart: 02-69-2080Rrgozbntl for malignant neoplasm of breastMammogramRIVERTON HOSPITAL HealthcareStart: 79-55-7089Icbaw screening for protein Diabetes: Urine Protein ScreeningSaint Mary's Health CenterStart: 02-25-2025 End: 27-40-2440Siehiwh encounter procedureNOBEAVER COUNTY [facility] FMComment on above:Essential (primary) hypertension (CMS/HCC) (Primary Dx); Gastroesophageal reflux disease without esophagitis; Type 2 diabetes mellitus without complication, without long-term current use of insulin; Iron deficiency anemia, unspecified iron deficiency anemia type; Anxiety and depression ([facility]/HCC)Start: 89-90-7195Ypwrkhvf screeningDiabetes: Retinopathy ScreeningSaint Mary's Health CenterStart: 01-29-2025 End: 37-49-3443Pysbuuy encounter mwidqscsj05/01/2025 9:00 AM EDT Office [facility] [address] [place] [address] Brea Jj NP [address] [place] [address] NOMTorsten VARGHESE FMStart: 12-31-2024 End: 66-98-6528Axrsurw encounter procedureNOMT [facility] DERMComment on above:Arrived Start: 12-26-2024 End: 97-28-1969Ajkrrla encounter uloyuvgsm61/26/2025 9:40 AM EST Office Visit [facility] [address] [place] [address] Brea Jj NP [address] [place] [address] [facility] FMStart: 12-10-2024 End: 95-45-5300Gkgdbkc encounter tsfnptgyl99/10/2025 10:25 AM EST Office Visit [facility] [address] [place] [address] Ladonna Bang, PROTEIN SPECIALIST-PEDIATRIC NEUROPSYCHOLOGIST [address] [place] [address] RashOSMELMS [facility] DERMComment on above:Rash Start: 12-06-2024 End: 33-10-7623Meojshs encounter pupiezszd71/06/2025 9:25 AM EST Office Visit [facility] [address] [place] [phone] Ladonna Bang, PROTEIN SPECIALIST-PEDIATRIC NEUROPSYCHOLOGIST [address] [place] [address] [facility] DERMStart: 12-03-2024 End: 24-45-5828Padoccb [Enzymatic activity/volume] in Serum or PlasmaAmylase Lab Routine Nausea and vomiting, unspecified vomiting type Diarrhea, unspecified type Weight loss, unintentional Expected: 12/03/2024 (Approximate), Expires: 12/03/2025NOMT HealthcareComment on above:Expected: 12/03/2024 (Approximate), Expires: 12/03/2025Start: 12-03-2024 End: 81-34-7900Nsimdues identified in Urine by CultureUrine culture (clean catch) Microbiology Routine Nausea and vomiting, unspecified vomiting type Diar adolfo, unspecified type Weight loss, unintentional Expected: 12/03/2024 (Approximate), Expires: 12/03/2025NOMS HealthcareComment on above:Expected: 12/03/2024 (Approximate), Expires: 12/03/2025Start: 12-03-2024 End: 45-08-4815ZZV W Auto Differential panel - BloodCBC and differential Lab Routine Nausea and vomiting, unspecified vomiting type Diarrhea, unspecified type Weight loss, unintentional Expected: 12/03/2024 (Approximate), Expires: 12/03/2025[facility] Work Phone: Comment on above:Expected: 12/03/2024 (Approximate), Expires: 12/03/2025Start: 12-03-2024 End: 10-12-2552Ztreumklpnznkz difficile toxin A+B tcdA+tcdB genes [Presence] in Stool by PANDA with probe detectionClostridium difficile,EIA Microbiology Routine Nausea and vomiting, unspecified vomiting type Diarrhea, unspecified type Weight loss, unintentional Expected: 12/03/2024 (Approximate), Expires: 12/03/2025[facility] HealthcareComment on above:Expected: 12/03/2024 (Approximate), Expires: 12/03/2025Start: 12-03-2024 End: 05-98-9549Mtjaruercjwrz metabolic 2000 panel - Serum or PlasmaComprehensive metabolic panel Lab Routine Nausea and vomiting, unspecified vomiting type Diarrhea, unspecified type Weight loss, unintentional Expected: 12/03/2024 (Approximate), Expires: 12/03/2025[facility] HealthcareComment on above:Expected: 12/03/2024 (Approximate), Expires: 12/03/2025Start: 12-03-2024 End: 53-63-6145Lorwgenebxc sedimentation rateSedimentation rate, automated Lab Routine Nausea and vomiting, unspecified vomiting type Diarrhea, unspecified type Weight loss, unintentional Expected: 12/03/2024 (Approximate), Expires: 12/03/2025[facility] HealthcareComment on above:Expected: 12/03/2024 (Approximate), Expires: 12/03/2025Start: 12-03-2024 End: 13-84-8623Mwmnjr [Enzymatic activity/volume] in Serum or PlasmaLipase Lab Routine Nausea and vomiting, unspecified vomiting type Diarrhea, unspecified type Weightloss, unintentional Expected: 12/03/2024 (Approximate), Expires: 12/03/2025NOMT HealthcareComment on above:Expected: 12/03/2024 (Approximate), Expires: 12/03/2025Start: 12-03-2024 End: 71-59-2709Dkwzsbgwytd of occult blood in single stool specimenOccult blood x 1, stool Lab Routine Nausea and vomiting, unspecified vomiting type Diarrhea, unspecified type Weight loss, unintentional Expected: 12/03/2024 (Approximate), Expires: 12/03/2025NOMT HealthcareComment on above:Expected: 12/03/2024 (Approximate), Expires: 12/03/2025Start: 12-03-2024 End: 17-09-1981Pnh and parasite screenOva and parasite screen Microbiology Routine Nausea and vomiting, unspecified vomiting type Diarrhea, unspecified type Weight loss, unintentional Expected: 12/03/2024 (Approximate), Expires: 12/03/2025[facility] HealthcareComment on above:Expected: 12/03/2024 (Approximate), Expires: 12/03/2025Start: 12-03-2024 End: 43-02-3464Grpdq cultureStool culture Microbiology Routine Nausea and vomiting, unspecified vomiting type Diarrhea, unspecified type Weight loss, unintentional Expected: 12/03/2024 (Approximate), Expires: 12/03/2025[facility] HealthcareComment on above:Expected: 12/03/2024 (Approximate), Expires: 12/03/2025Start: 12-03-2024 End: 75-64-6328Vtklwfiakuq [Units/volume] in Serum or PlasmaTSH Lab Routine Weight loss, unintentional Expected: 12/03/2024 (Approximate), Expires: 12/03/2025N[facility] HealthcareComment on above:Expected: 12/03/2024 (Approximate), Expires: 12/03/2025Start: 12-03-2024 End: 43-93-0013Iorcqlgze (T4) free [Mass/volume] in Serum or PlasmaT4, free Lab Routine Weight loss, unintentional Expected: 12/03/2024 (Approximate), Expires: 12/03/2025[facility] HealthcareComment on above:Expected: 12/03/2024 (Approximate), Expires: 12/03/2025Start: 12-03-2024 End: 79-89-0200Rypbcawyprrowpll (T3) Free [Mass/volume] in Serum or PlasmaT3, free Lab Routine Weight loss, unintentional Expected: 12/03/2024 (Approximate), Expires: 12/03/2025NOM[facility] HealthcareComment on above:Expected: 12/03/2024 (Approximate), Expires: 12/03/2025Start: 12-03-2024 End: 78-43-4984Temrqdnfqd complete panel - UrineUrinalysis with reflex microscopic (clean catch) Lab Routine Nausea and vomiting, unspecified vomiting type Diarrhea, unspecified type Weight loss, unintentional Expected: 12/03/2024 (Approximate), Expires: 12/03/2025N[facility] HealthcareComment on above:Expected: 12/03/2024 (Approximate), Expires: 12/03/2025Start: 12-03-2024 End: 76-56-0512Cmazwfv encounter eibxybkye18/03/2025 9:00 AM EST Office Visit [facility] [address] [place] [address] Brea Jj NP [address] [place] [address] Class 2 severe obesity due to excess calories with serious comorbidity and body mass index (BMI) of 37.0 to 37.9 in adult (CMS/HCC) (Primary Dx); Chronic respiratory failure with hypoxia (CMS/HCC); Morbid (severe) obesity due to excess calories (CMS/HCC); Essential (primary) hypertension (CMS/HCC); Rash; Tobacco dependence syndrome; Anxiety and depression (CMS/HCC)[facility] FMComment on above:Class 2 severe obesity due to excess calories with serious comorbidity and body mass index (BMI) of37.0 to 37.9 in adult (CMS/HCC) (Primary Dx); Chronic respiratory failure with hypoxia (CMS/HCC); Morbid (severe) obesity due to excess calories (CMS/HCC); Essential (primary) hypertension (CMS/HCC); Rash; Tobacco dependence syndrome; Anxiety and depression (CMS/HCC)Start: 10-15-2024 End: 77-65-0214Fzrgdox encounter ubhewvtwt85/16/2024 9:00 AM EST Office Visit [facility] [address] [place] [address] Brea Jj NP [address] [place] [address] NOMS CW FMStart: 99-62-9423Omnecujofa A1c measurement Diabetes: Hemoglobin W9MTYOB HealthcareStart: 50-11-5552Xgfmdfnwc vaccination Influenza Vaccine (#1)[facility] HealthcareComment on above:Postponed from 07/01/2024 (Patient Does Not Have Time)Start: 07-24-2024 End: 29-76-4785Yxccdno encounter procedureNOMS [facility] FMComment on above:Arrived Start: 34-59-9319Ynmxuduoz vaccinationInfluenza Vaccine (#1)[facility] Healthcare Start: 65-61-6082Fntpirpnf vaccinationInfluenza Vaccine (#1)[facility] Healthcare Comment on above:Postponed from 07/01/2023 (Patient Refused)Start: 04-14-2024 Screening for malignant neoplasm of breastMammogramNOMT HealthcareStart: 38-80-5715Yehov screening for proteinDiabetes: Urine Protein ScreeningNOMT HealthcareStart: 63-58-5174Emhcdgdrsa A1c measurementDiabetes: Hemoglobin A1C [facility] HealthcareStart: 01-10-2024 End: 17-33-1642Eilgwxu encounter vmydfbfre19/12/2024 9:00 AM EDT Office Visit [facility] [address] [place] [address] Brea Jj, TOBIAS [address] [place] [address] [facility] FMStart: 46-88-6372Sbiippyfl for malignant neoplasm of cervixPap SmearNOMS HealthcareStart: 63-27-8899Scmzskjxdpyo Vaccine: Pediatrics (0 to 5 Years) and At-Risk Patients (6 to 64 Years) (1 of 2 - PCV) Pneumococcal Vaccine: Pediatrics (0 to 5 Years) and At-Risk Patients (6 to 64 Years) (1 of 2 - PCV)[facility] HealthcareStart: 80-77-3181OKbA/Tdap/Td Vaccines (1 - Tdap)DTaP/Tdap/Td Vaccines (1 - Tdap)[facility] HealthcareStart: 27-81-1124XSR Vaccines (1 of 1 - Standard series)MMR Vaccines (1 of 1 - Standard series)[facility] HealthcareStart: 61-47-8894Shxexrpbu for malignant neoplasm of colonNOMT HealthcareDrugs identified in [facility] Medical CenterPatient EducationKnow your [facility] Work Phone: [facility] Immunizations Immunization DateImmunizationNotesCare TlmyjyiiJmgzzynm17-24-4269Pkqycrqgv, injectable, [place] Canine Kidney, quadrivalent with preservativeLisa Aichholz LIGHTING ENGINEER-C Work Phone: [facility]10-14-2024influenza virus vaccine, unspecified formulationLisa Aichholz LIGHTING ENGINEER Work Phone: [facility] CenterJnyvuskyts73-00-2924utupueail, seasonal, injectableLisa Aichholz LIGHTING ENGINEER Work Phone: [facility] CenterRzyxqgiprm62-17-2810Jkoqprexe, Seasonal, Quadrivalent, AdjuvantedLisa Aichholz LIGHTING ENGINEER Work Phone: [facility] CenterAryceuriqo54-53-7142bhqmnhefi, injectable, quadrivalent, contains preservativeLisa Aichholz LIGHTING ENGINEER Work Phone: [facility] CenterChujrteyve03-08-2219IESVP-09 mRNA, Comirnaty (Pfizer)Marshall Mckeon MD Work Phone: [facility]03-26-2021COVID-19 mRNA, Comirnaty (Pfizer)Marshall Mckeon MD Work Phone: [address] [place], [place] [id number], injectable, quadrivalent, contains preservativeLisa Aichholz LIGHTING ENGINEER Work Phone: [facility] CenterTykhvcykjn72-77-5170gugbgdyua, high dose seasonal, preservative-freeLisa Aichholz LIGHTING ENGINEER Work Phone: [facility] Payers DatePayer CategoryPayerPolicy [id number] 2020[place]icaid[place] [id number] 2020-Present [address] [place] [id number] 2020Medicaid (Managed Care)[employer] [employer] Member Subscriber Plan / Payer (Effective 2020-Present) Name: Sis Moore Relation to Subscriber: Self Name: Sis Moore Payer ID: Not on file Group ID: NO GROUP Type: Not on file Address: [address] [place] [id number] .1.668565.3.57[id number] ...199627.3.57[id number] ..1.062571.3.57[id number] 2..1.057001.3.57[id number] 2.16.840.1.990954.3.57[id number] 2.840.1.178854.3.579.[id number] 2.840.1.288210.3.57[id number] 2.840.1.934715.3.579.2.79794-38-9980Efbwvaa4276318 2.840.1.428123.3.579.2.56370-95-6063Eqxrqrm78510840 2.840.1.476895.3.579.2.25969-85-0411Znwygci19401649 2.840.1.400210.3.57[id number] 2.0.1.367708.3.579.2.21307-53-1288Ualrcxn84107594 2.0.1.567750.3.579.[id number] 2..1.593213.3.579.2.91703-57-8317Ipdtcif66140468 2.0.1.618776.3.579.[id number] 2.840.1.261552.3.579.2.93976-17-4031Dcqqkth84045797 2.840.1.782978.3.579.2.169382-97-5971Tdgbxij2517697 2.840.1.221770.3.579.2.038733-23-0943Enaqqty6371438 2.840.1.329883.3.579.2.164178-98-2669Qnliykn1049546 2..840.1.323501.3.579.2.075216-52-2578Xktzdko9051314 2..840.1.587547.3.579.2.120968-04-9142Qdkdjoz0163164 2.16.840.1.490346.3.579.2.325940-09-0346Jqnefsa3769236 2..840.1.811092.3.579.2.857492-98-3481Vneabaw1511103 2..840.1.543160.3.579.2.458697-67-3994Whgbqxp70209011 2..840.1.591525.3.579.[id number] 2.0.1.047098.3.579.2.15860-07-2363Waeklkf579497341974Tqdhyhn04072083 2..840.1.678056.3.579.2.499Qqcuazn58380677 2.0.1.155147.3.579.2.531 [id number] 2.0.1.654708.3.579.2.531 Social History DateTypeDetailFacilityTobaccoFormer smokerFirelands Regional Medical CenterComment on above:1/2 pack a dayTobacco smoking statusSt. Elizabeth Hospitaltart: 04-21-2023 End: 74-69-1379Dfc Assigned At BirthFemalSuburban Community Hospital & Brentwood Hospitaltart: 06-28-2023 End: 42-19-2879Qwmlxig smoking statusEx-smoker (finding)Firelands Regional Medical CenterComment on above:Quit 06/19/231/2 pack a dayHistory of tobacco useCurrent smokerNOMS HealthcareHistory of tobacco useCigarette SmokerNOMS HealthcareStart: 10-19-2023 End: 63-06-4440Cdxjovnlud smoked current (pack per day) - Ckyajdon0HQHN HealthcareStart: 10-19-2023 End: 30-17-4232Qwbbngd use and exposureSmokeless tobacco non-userNOMT Healthcare Start: 12-05-2023 End: 33-64-2709Ckvdjdc intakeLifetime non-drinker (finding)[facility] CenterHow often to you have a drink containing alcohol?NeverNOMT HealthcareStart: 27-34-4475Kox many standard drinks containing alcohol do you have on a typical day?Patient does not drinkNOMT HealthcareStart: 78-25-4733Ytsatix Fwflcju37-46 cigarettes/dayNOMT HealthcareStart: 22-55-9579Flgcvfh Commentcaffeine 2-3 cups per dayRIVERTON HOSPITAL HealthcareStart: 26-43-5879Mmy Assigned At BirthFeEncompass [facility] Hospital HealthcareStart: 15-17-7601Hmlezz identityIdentifies as female gender (finding) [facility] HealthcareStart: 76-52-1436Hnqfpi orientationHeterosexual (finding)[facility] HealthcareStart: 07-23-2024 End: 90-45-2026Vstvams smoking statusHeavy tobacco smoker (finding)[facility] Hospitaltart: 56-48-7423ThcLmhdgr (finding)[facility]: 05-28-2025 End: 95-29-7674Uciqwsm smoking status NHISSmokes tobacco daily (finding) [facility] Medical Equipment Procedure CodeEquipment CodeEquipment Original TextEquipment IdentifierDatesUSE ONCE DAILY [id number]: 03-17-2023 Goals DatePatient GoalDesired Activity/State Functional Status TejuPafpkutyljQpeqhyCznoewcp44-50-9228Zbcngnwzgv statusPatient at Baseline [facility] Work Phone: 1(879) 618-240207392149-88-4479Dkmkeywwdo statusPatient at Baseline [facility] Work Phone: 1(698) 890-683804-444006-13-0649Sbbmrsv Health Questionnaire 2 item (PHQ-2) [Reported][facility] CenterTbqzeefcfo38-37-8254Hmxlpjewvv StatusN/AFisher [facility] Orthopaedic InstituteWxccxq98-67-6195Ubdmnaxqeq StatusN/[facility]08-17-2023 Functional StatusN/[facility]08-17-2023Functional Status [facility] Mental Status IxifHaiqplmahjKsewvuVhiwsipz99-00-8323Wupytwwqe functionCognitive Status [facility] Work Phone: 1(816) 920-88090519098-35-2198Cqkurdabu functionCognitive Status [facility] Work Phone: Clinical Notes 06-17-2023 to 09-10-2025 Note Date & GfhvUttnLvgbzqar38-93-9861 NoteED Patient Education Note Orthopedics Hip Pain The hip is the joint between the upper legs and the lower pelvis. The bones, cartilage, tendons, and muscles of your hip joint support your body and allow you to move around. Hip pain can range from a minor ache to severe pain in one or both of your hips. The pain may be felt on the inside of the hip joint near the groin, or on the outside near the buttocks and upper thigh. You may also have swelling or stiffness in your hip area. Follow these instructions at home: Managing pain, stiffness, and swelling ??? If told, put ice on the painful area. ? Put ice in a plastic bag. ? Place a towel between your skin and the bag. ? Leave the ice on for 20 minutes, 2?3 times a day. ??? If told, apply heat to the affected area as often as told by your health care provider. Use theheat source that your provider recommends, such as a moist heat pack or a heating pad. ? Place a towel between your skin and the heat source. ? Leave the heat on for 20?30 minutes. ? If your skin turns bright red, remove the ice or heat right away to prevent skin damage. The riskof damage is higher if you cannot feel pain, heat, or cold. Activity ??? Do exercises as told by your provider. ??? Avoid activities that cause pain. General instructions ??? Take yxve-kup-gxcfdkr and prescription medicines only as told by your provider. ??? Keep a journal of your symptoms. Write down: ? How often you have hip pain. ? The location of your pain. ? What the pain feels like. ? What makes the pain worse. ??? Sleep with a pillow between your legs on your most comfortable side. ??? Keep all follow-up visits. Your provider will monitor your pain and activity. Contact a health care provider if: ??? You cannot put weight on your leg. ??? Your pain or swelling gets worse after a week. ??? It gets harder to walk. ??? You have a fever. Get help right away if: ??? You fall. ??? You have a sudden increase in pain and swelling in your hip. ??? Your hip is red or swollen or very tender to touch. This information is not intended to replace advice given to you by your health care provider. Make sure you discuss any questions you have with your health care provider. Document Revised: 06/21/2023 Document Reviewed: 06/21/2023 [employer] Patient Education ? 2023 [employer] 08-28-2025 Evaluation note* Diagnosis Onset Date Resolution Status Admit Date Anxiety and depression acuteOctober 2024 8:52amClass 2 severe obesity due to excess calories with serious comorbidity in adultacuteOctober 2024 8:52amEssential hypertensionacuteOctober 2024 8:52amGERD without esophagitisacuteOctober 2024 8:52amTobacco dependence syndromeacuteOctober 2024 8:52amType 2 diabetes mellitus without complication, without long-term current usacute August 28, 2025 8:52am [facility] Work Phone: 1(242) 694-939808-06-2025 Telephone encounter Note* Telephone Encounter - Annie Ruffin - 06/05/2025 8:58 AM EDT Mirtha is waiting for blood work orders to be sent to [facility]. She wants to have the labwork done today because her 's is tomorrow. [facility] Htexavrtlo98-61-1753 Miscellaneous Notes* Telephone Encounter - Annie Ruffin - 06/05/2025 8:58 AM EDT Mirtha is waiting for blood work orders to be sent to [facility]. She wants to have the labwork done today because her 's is tomorrow. documented in this [facility]07-31-2025 History of Present illness Narrative* Brea Jj NP - 05/30/2025 10:53 AM EDTAssociated Problem(s): Hypomagnesemia Start supplement Recheck in 10 days fluids documented in this [facility]07-30-2025 History and physical note Author Debbie Alejandro [facility]imaNote Date/TimeJuly 2024 3:27[place] [address] Hospitalist H&P Signed Patient: Sis Moore MR#: [id number] : 1965 Acct:[id number] Age/Sex: 59 / F Adm Date: 5 Loc: Room: [address] [place] [address] Type: ADM IN Attending Dr: Marshall Mckeon MD Copies to: MD Brea Iqbal, LIGHTING ENGINEER-C Misha Ochoa, DO Debbie Alejandro, PROTEIN SPECIALIST~ HPI DATE OF EXAMINATION: 05/29/25 CHIEF COMPLAINT: Nausea, vomiting, diarrhea for 4 days HISTORY OF PRESENT ILLNESS: Ms. Moore is a 59-year-old female with a PMH of HTN, ROLANDO, does not wear CPAP, COPD, chronic hypoxic respiratory failure?home oxygen 3L NC at at bedtime and asneeded, tobacco dependence, RLS that presented to [facility] emergency room for kidney function elevated and [...] smoker, denies alcohol or illicit drug use. [facility] chart review?CT of the abdomen pelvis showed [...] saline, Zofran. Blood pressure on arrival to [place] was 83/51, heart rate was 97. Transferred here to [facility] as inpatient to the med/surg tele floor. Review of Systems Review of Systems Review of systems: A 10 point review of systems was obtained, negative unless noted in the HPI or below. [facility] Medical History (Updated 05/29/25 @ 01:21 by [...] Problem List clean-up per request of Phys. [facility] Hy[facility]ension Problem List clean-up per request of Phys. [facility] Diabetes Problem List clean-up per request of Phys. [facility] Surgical History (Updated 05/29/25 @ 01:20 by Debbie Alejandro APRN) History of colonoscopy History of foot surgery Problem List clean-up per request of Phys. [facility] History of knee surgery Problem List clean-up per request of Phys. [facility] History of knee surgery as teenager Problem List clean-up per request of Phys. [facility] Family History Other COPD (chronic obstructive pulmonary [...] conditions?please call patient's PCP Brea Jj NP [phone] to obtain current med list HTN?hold lisinopril/HCTZ [...] <Electronically signed by Misha Ochoa DO> 05/29/25 2037 [facility] Work Phone: 1(533) 760-726507-30-2025 [place] [address] Hospitalist H&P Signed Patient: Sis Moore MR#: [id number] : 1965 Acct:[id number] Age/Sex: 59 / F Adm Date: 5 Loc: Room: [address] [place] [address] Type: ADM IN Attending Dr: Marshall Mckeon MD Copies to: MD Brea Iqbal, LIGHTING ENGINEER-C DO Debbie Kyle APRN~ HPI DATE OF EXAMINATION: 05/29/25 CHIEF COMPLAINT: Nausea, vomiting, diarrhea for 4 days HISTORY OF PRESENT ILLNESS: Ms. Moore is a 59-year-old female with a PMH of HTN, ROLANDO, does not wear CPAP, COPD, chronic hypoxic respiratory failure?home oxygen 3L NC at at bedtime and asneeded, tobacco dependence, RLS that presented to [facility] emergency room for kidney function elevated and [...] smoker, denies alcohol or illicit drug use. [facility] chart review?CT of the abdomen pelvis showed [...] saline, Zofran. Blood pressure on arrival to [place] was 83/51, heart rate was 97. Transferred here to [facility] as inpatient to the med/surg tele floor. Review of Systems Review of Systems Review of systems: A 10 point review of systems was obtained, negative unless noted in the HPI or below. [facility] Medical History (Updated 05/29/25 @ 01:21 by [...] List clean-up per request of Phys. [facility] COPD (chronic obstructive pulmonary disease) Problem List clean-up per request of Phys. [facility] Restless leg syndrome Problem List clean-up per request of Phys. [facility] Hypertension Problem List clean-up per request of Phys. [facility] Diabetes Problem List clean-up per request of Phys. [facility] Surgical History (Updated 05/29/25 @ 01:20 by Debbie Alejandro APRN) History of colonoscopy History of foot surgery Problem List clean-up per request of Phys. [facility] History of knee surgery Problem List clean-up per request of Phys. [facility] History of knee surgery as teenager Problem List clean-up per request of Phys. [facility] Family History Other COPD (chronic obstructive pulmonary [...] conditions?please call patient's PCP Brea Jj NP [phone] to obtain current med list HTN?hold lisinopril/HCTZ [...] 0104 Signed By: 05/29/25 0126 05/29/25 0327 [facility]07-30-2025 Evaluation note* Diagnosis Onset Date Resolution Status Admit Date LAINA (acute kidney injury) acuteJuly 2024 11:18pmDiarrheaacuteJuly 2024 11:18pmNausea and vomitingacuteJuly 2024 11:18pm [facility] Work Phone: [phone]) 995-746207-29-2025 History of Present illness Narrative* Brea Jj [...] been taking pepto and tylenol * Brea Jj, LIGHTING ENGINEER - 05/28/2025 9:00 AM EDT Images from [...] from cardiac procedure, he has been in [place] several weeks now, she only goes up [...] 1 TAB FOR 3 DAYS. theophylline ER (Regla-Dur) 300 MG 12 hr tablet TAKE 1 [...] excess calories with serious comorbidity in adult ([facility]) 10/19/2023 Mixed hyperlipidemia 10/12/2023 ROLANDO (obstructive sleep apnea) Other insomnia 10/19/2023 Primary hypertension 10/12/2023 Restless leg syndrome 10/12/2023 Type 2 diabetes mellitus without complication, without long-term current use of insulin ([facility]) 10/19/2023 Past Surgical History: Procedure Laterality [...] excess calories with serious comorbidity in adult ([facility]) Discussed with patient their BMI (actual, verses recommended). We have also discussed lifestyle modifications: attempts to perform physical activity as chronic conditions allow, also to monitor dietary intake: increasing protein/fruits/veggies and lowering carb intake (unless contraindicated). Limit sodas, juices, and sugary drinks. Type 2 diabetes mellitus without complication, without long-term current use of insulin (HCC) Check blood sugars daily, notify if <70 [...] excess calories with serious comorbidity in adult ([facility]) Discussed with patient their BMI (actual, verses [...] syndrome Current medication: pramipexole documented in this [facility]07-29-2025 Instructions* Patient Instructions* Brea Jj NP - 05/28/2025 9:00 AM EDT Check lab , Hydrate with electrolytes documented in this encounterSaint Mary's Health CenterCnilwcbbcf90-75-6555 [facility] Chief Complaint: Patient here for 1.5 year follow up. Patient states she feels ok. Patient states she has had some chest pain, patient feels it could of been from anxiety chest pain lasted 5 to 10 minutes with no other symptoms. HPI: Sis Moore is a 59 y.o. female Patient here for 6 mo follow up hypertension and myocardial bridge of coronary artery. Doing well; has chronic shortness of breath. Denies chest pain. Update 03/28/2025: Doing well overall. Unfortunately, has been under a lot of stress. Her needs a heart transplant and is being evaluated at the [facility]. She has occasional chest pain at [...] history of COPD (chronic obstructive pulmonary disease) ([facility]/HCC), Diabetes mellitus (CMS/HCC), Hyperlipidemia, Hypertension, and Sleep apnea. Surgical History [...] are 2+ bilaterally. N (more content not included)...[facility]04-28-2025 History of Present illness Narrative* Brea Jj [...] Hospitalizations in the last year: no Specialist: Samsa, GI, cardiology, copy and print associate Diabetes She presents for her follow-up diabetic [...] being taken. She does not see a water treatment plant operator.Eye exam is current. Hypertension This is [...] 1 TAB FOR 3 DAYS. theophylline ER (Regla-Dur) 300 MG 12 hr tablet TAKE 1 [...] Medical History: Diagnosis Date Anxiety and depression ([facility]) 10/12/2023 Arthritis Class 2 severe obesity due to excess calories with serious comorbidity in adult ([facility]) 10/19/2023 Mixed hyperlipidemia ([facility]) 10/12/2023 ROLANDO (obstructive sleep apnea) Other insomnia 10/19/2023 Primary hypertension ([facility]) 10/12/2023 Restless leg syndrome 10/12/2023 Type [...] changes Current med: lisinopril/hydrochlorothiazide documented in this encounterSaint Mary's Health CenterLyckqbnzah78-52-3639 Instructions* Patient Instructions* Brea Jj NP - 02/25/2025 9:40 AM EDT No changes in med doses Finish meds from COPD flare, if not better call dr Gaines's office A1c 6.1% documented in this [facility]03-03-2025 History of Present illness Narrative* CAROLE Villanueva [...] Next Visit: 1 year/prn documented in this [facility]02-26-2025 History of Present illness Narrative* Brea Jj NP - 12/26/2024 10:23 AM ESTAssociated Problem(s): Anxiety and depression (CMS/HCC) No med dose changes, would like counseling Refer to [facility] * AVI LONG - 12/26/2024 9:40 [...] times daily for 14 days theophylline ER (Regla-Dur) 300 MG 12 hr tablet TAKE 1 [...] Medical History: Diagnosis Date Anxiety and depression ([facility]) 10/12/2023 Arthritis Class 2 severe obesity due to excess calories with serious comorbidity in adult ([facility]) 10/19/2023 Mixed hyperlipidemia ([facility]) 10/12/2023 ROLANDO (obstructive sleep apnea) Other insomnia 10/19/2023 Primary hypertension ([facility]) 10/12/2023 Restless leg syndrome 10/12/2023 Type 2 diabetes mellitus without complication, without long-term current use of insulin ([facility]) 10/19/2023 Past Surgical History: Procedure Laterality Date [...] Items Addressed This Visit Anxiety and depression ([facility]) No med dose changes, would like counseling Refer to [facility] Essential (primary) hypertension ([facility]) Please check blood pressure daily and record DASH diet Limit caffeine Take medication as directed Contact office if chest pain, pressure, dizziness, shortness of breath, swelling legs Recommend slow position changes Current med: lisinopril/hydrochlorothiazide Class 2 severe obesity due to excess calories with serious comorbidity in adult ([facility]) Discussed with patient their BMI (actual, verses recommended). We have also discussed lifestyle modifications: attempts to perform physical activity as chronic conditions allow, also to monitor dietary intake: increasing protein/fruits/veggies and lowering carb intake (unless contraindicated). Limit sodas, juices, and sugary drinks. Tobacco dependence syndrome The patient has been advised of the risks of continued smoking: stroke, SD, all forms of cancer, lung disease, and . Options for quitting smoking include: cold turkey, hypnosis, acupuncture, nicotine replacement meds(gum, lozenges, and patches), Buproprion, and Varenicline. At this time pt is encouraged to evaluate their goals for wanting to quit smoking, and reach out toprovider when ready to start this process Chronic respiratory failure with hypoxia ([facility]) - Primary Has oxygen therapy Continue inhalers Follows with Dr Gaines Gastroesophageal reflux disease without esophagitis Last appt started Pantoprazole Irritable bowel syndrome with diarrhea Stool sample results reviewed I have referred her to GI in [facility] trial Xifaxin for for IBS-D Has failed: immmodium, pepto Sxs could also be gallbladder related as well #3 samples: lot: [id number] exp 04/26 Relevant Medications rifAXIMin (Xifaxan) 550 MG tablet Occult blood positive stool Neg cultures +stool for OB Referred to GI Centrilobular emphysema (CMS/HCC) Continues with pulmonary Samsa Cont current inhalers * Brea Jj NP - 12/26/2024 6:43 AM ESTAssociated Problem(s): Tobacco dependence syndrome The patient has been advised of the risks of continued smoking: stroke, SD, all forms of cancer, lung disease, and [...] gallbladder related as well #3 samples: lot: [id number] exp 04/26 * Brea Jj NP - 12/26/2024 6:40 AM ESTAssociated Problem(s): Essential (primary) hypertension (CMS/HCC) [...] ESTAssociated Problem(s): Centrilobular emphysema (CMS/HCC) Continues with pulmonary Samsa Cont current inhalers documented in this [facility]02-26-2025 Instructions* Patient Instructions* Brea Jj NP - 12/26/2024 9:40 AM EST Xifaxin: take 3 times daily, you will take a total of 14 days Referral to [facility] in [place] documented in this encounterSaint Mary's Health CenterJoayymvakr20-09-1527 History of Present illness Narrative* Ladonna Bang, PROTEIN SPECIALIST-PEDIATRIC NEUROPSYCHOLOGIST - 12/10/2024 10:25 AM EST Images from [...] 3-4 weeks, follow up documented in this encounterSaint Mary's Health CenterJzqeunkjcp07-74-4838 History of Present illness Narrative* Brea Jj [...] (MIRAPEX) 0.5 mg, Oral, Nightly theophylline ER (Regla-Dur) 300 MG 12 hr tablet TAKE 1 [...] Medical History: Diagnosis Date Anxiety and depression ([facility]) 10/12/2023 Arthritis Class 2 severe obesity due to excess calories with serious comorbidity in adult ([facility]) 10/19/2023 Mixed hyperlipidemia ([facility]) 10/12/2023 ROLANDO (obstructive sleep apnea) Other insomnia 10/19/2023 Primary hypertension ([facility]) 10/12/2023 Restless leg syndrome 10/12/2023 Type 2 diabetes mellitus without complication, without long-term current use of insulin ([facility]) 10/19/2023 Past Surgical History: Procedure Laterality [...] (LaMICtal) 25 MG tablet Essential (primary) hypertension ([facility]) Please check blood pressure daily and record DASH diet Limit caffeine Take medication as directed Contact office if chest pain, pressure, dizziness, shortness of breath, swelling legs Recommend slow position changes Current med: lisinopril/hydrochlorothiazide, Relevant Medications lisinopril-hydroCHLOROthiazide 20-25 MG tablet Mixed hyperlipidemia (CMS/HCC) Relevant Medications atorvastatin (Lipitor) 40 MG tablet Class 2 severe obesity due to excess calories with serious comorbidity in adult ([facility]) Discussed with patient their BMI (actual, verses recommended). We have also discussed lifestyle modifications: attempts to perform physical activity as chronic conditions allow, also to monitor dietary intake: increasing protein/fruits/veggies and lowering carb intake (unless contraindicated). Limit sodas, juices, and sugary drinks. Type 2 diabetes mellitus without complication, without long-term current use of insulin (CMS/[facility]) Relevant Medications pioglitazone (Actos) 15 MG tablet Tobacco dependence syndrome Edema of both lower extremities Relevant Medications potassium chloride CR (Klor-Con) 10 MEQ ER tablet RESOLVED: Morbid (severe) obesity due to excess calories (CMS/HCC) Chronic respiratory failure with hypoxia ([facility]) Has oxygen therapy Continue inhalers Follows [...] 6:09 AM ESTAssociated Problem(s): Essential (primary) hypertension ([facility]) Please check blood pressure daily and record DASH diet Limit caffeine Take medication as directed Contact office if chest pain, pressure, dizziness, shortness of breath, swelling legs Recommend slow position changes Current med: lisinopril/hydrochlorothiazide, * Brea Jj NP - 12/03/2024 6:09 AM ESTAssociated Problem(s): Chronic respiratory failure with hypoxia ([facility]) Has oxygen therapy Continue inhalers Follows with Dr Gaines documented in this [facility]02-03-2025 Instructions* Patient Instructions* Brea Jj NP - 12/03/2024 9:00 AM EST Check labs and stool samples Follow up in 3 weeks Dermatology referral as well documented in this [facility]12-30-2024 History of Present illness Narrative* Brea Jj [...] were not included. Sis Moore is a 58 y.o. female [...] being taken. She does not see a water treatment plant operator.Eye exam is current. Hypertension This is [...] (MIRAPEX) 0.5 mg, Oral, Nightly theophylline ER (Regla-Dur) 300 MG 12 hr tablet TAKE 1 [...] Medical History: Diagnosis Date Anxiety and depression ([facility]) 10/12/2023 Arthritis Class 2 severe obesity due to excess calories with serious comorbidity in adult ([facility]) 10/19/2023 Mixed hyperlipidemia ([facility]) 10/12/2023 ROLANDO (obstructive sleep apnea) Other insomnia 10/19/2023 Primary hypertension ([facility]) 10/12/2023 Restless leg syndrome 10/12/2023 Type 2 diabetes mellitus without complication, without long-term current use of insulin ([facility]) 10/19/2023 Past Surgical History: Procedure Laterality [...] without long-term current use of insulin (CMS/HCC) Check blood sugars daily, notify if <70 [...] without complication, without long-term current useof insulin ([facility]) Check blood sugars daily, notify if [...] changes Current med: lisinopril/hydrochlorothiazide, documented in this [facility]12-30-2024 Instructions* Patient Instructions* Brea Jj NP - 10/29/2024 6:00 PM EST No dose changes in meds Will trial steroid cream twice a day to both legs for 14 days, if not better call me documented in this encounterSaint Mary's Health CenterWfrtqzhhsb48-10-1536 History of Present illness Narrative* Brea Jj [...] were not included. Sis Moore is a 58 y.o. female [...] (MIRAPEX) 0.5 mg, Oral, Nightly theophylline ER (Regla-Dur) 300 MG 12 hr tablet TAKE 1 [...] Medical History: Diagnosis Date Anxiety and depression ([facility]) 10/12/2023 Arthritis Class 2 severe obesity due to excess calories with serious comorbidity in adult ([facility]) 10/19/2023 Mixed hyperlipidemia ([facility]) 10/12/2023 ROLANDO (obstructive sleep apnea) Other insomnia 10/19/2023 Primary hypertension ([facility]) 10/12/2023 Restless leg syndrome 10/12/2023 Type 2 diabetes mellitus without complication, without long-term current use of insulin ([facility]) 10/19/2023 Past Surgical History: Procedure Laterality [...] lisinopril-hydroCHLOROthiazide 20-25 MG tablet documented in this encounterSaint Mary's Health [id number] NoteOncology Progress Note Chief Complaint Acute PE; here to go over results. Diagnoses 1. History of pulmonary embolism (Z86.711: Personal history of pulmonary embolism) Ordered: ONC Office Visit 30 Min 2. Iron deficiency anemia (D50.9: Iron deficiency anemia, unspecified) Oncological History/ROS/PE/Assessment and Plan Sis was referred to our hematology office at [facility] for Thrombophilia work up and decision about duration of anticoagulation for the acute PE diagnosed on . She is a 57-year-old female cigarette smoker with history of hypertension, fux-hsdkidi-vqcjejsbn diabetes mellitus, obesity,chronic hypoxic respiratory failure on 3 L home oxygen, and depression who presented on 06/16/23 to [facility] ER with complaints of right-sided chest pain [...] cramping a lot. has had colonoscopy at [facility] 07/23/24 enregy has been stable, pretty [...] No bright red blood continues to crave pickmarino, but has improved overall no new concerns [...] [address] scan at [facility] by her pcp, told everything looks good, no concerns. Plans these yearly for surveillance 3. iron deficiency anemia December 2023 iron studies low, will initiate oral iron supplementation. Will repeat iron studies in about 6 months, (more content not included)...[facility]03-20-2024 Hospital Discharge instructions Follow Up Care 01/18/2024 12:42:29 With:Swapna ANGUIANO, Mariama Chen, ONC Address: [facility] [address] [place] [address] [place] [address] [phone] When: Unknown Comments:cbc, cmp, iron studies in 6mo and 1yrfollow-up in 1yrcontinue ferrous sulfate 325mg daily [facility] [id number] Evaluation + Plan note Diagnostic Tests Pending * Methylmalonic Acid 01/16/24 [facility]02-05-2024 History of Present illness Narrative* Brea Jj [...] Jj NP - 12/05/2023 9:00 AM EST Sis Moore is a 58 y.o. female [...] (MIRAPEX) 0.5 mg, Oral, Nightly theophylline ER (Regla-Dur) 300 MG 12 hr tablet TAKE 1 [...] Medical History: Diagnosis Date Anxiety and depression ([facility]) 10/12/2023 Arthritis Class 2 severe obesity due to excess calories with serious comorbidity in adult ([facility]) 10/19/2023 COPD (chronic obstructive pulmonary disease) ([facility]) Fibrocystic breast disease Mixed hyperlipidemia ([facility]) 10/12/2023 ROLANDO (obstructive sleep apnea) Other insomnia 10/19/2023 Primary hypertension ([facility]) 10/12/2023 Restless leg syndrome 10/12/2023 Type 2 diabetes mellitus without complication, without long-term current use of insulin ([facility]) 10/19/2023 Past Surgical History: Procedure Laterality [...] Pneuomovax BMI 37.0-37.9, adult documented in this encounterSaint Mary's Health CenterOrchnrymau10-04-2160 Hospital Discharge instructions Patient Education 09/25/2023 21:57:45 [...] Follow these instructions at home: Medicines Take isyr-cjo-zmusbfd and prescription medicines only as told by [...] important. Where to find more information [employer] [place] of Diabetes and Digestive and Kidney Diseases: [...] provider. Document Revised: 09/08/2020 Document Reviewed: 09/08/2020 [employer] Patient Education 2022 Suitey. Follow Up Care 09/25/2023 18:11:16 With:[facility] Address: [address] [place] [address] 3, [address] Floor, [address] [place] [phone] Business (1) When:09/28/2023 21:47:26 With:BREA JJ Address: [address] [place] [id number] [phone] Business (1) When:Within 3 Day(s) [facility]11-26-2023 Evaluation + Plan noteExtracted from: Title:ED NoteAuthor:Moses Fischer DODate:09/25/23 AP (abdominal pain) (R10.9: Unspecified abdominal pain) Cholelithiasis (K80.20: Calculus of gallbladder without cholecystitis without obstruction) N&V (nausea and vomiting) (R11.2: Nausea with vomiting, unspecified) Orders: dicyclomine, 10 mg = 1 cap(s), Oral, QID, X 7 day(s), # 28 cap(s), Refills(s) 0, Pharmacy: [facility] 1155, 175, cm, 09/25/23 18:25:00 EST, [...] Comprehensive Metabolic Panel 12/27/23 * D-Dimer 12/27/23 [facility]11-09-2023 Hospital Discharge instructions Patient Education [...] Follow these instructions at home: Medicines Take ohvy-sbc-sbwnlga and prescription medicines only as told by [...] provider. Document Revised: 12/31/2021 Document Reviewed: 12/31/2021 [employer] Patient Education 2022 Suitey. Follow Up Care 09/08/2023 16:32:40 With:BREA JJ Address: [address] [place] [address] [phone] Business (1) When:Within 3 Day(s) [facility]11-09-2023 Evaluation + Plan noteExtracted from: Title:ED NoteAuthor:Ramses Hair DODate:09/08/23 Acute chest pain (R07.9: [address] st pain, [...] Comprehensive Metabolic Panel 12/27/23 * D-Dimer 12/27/23 [facility]09-19-2023 Hospital Discharge instructions Follow Up Care 07/19/2023 10:53:55 With:Swapna ANGUIANO, Mariama Chen, ONC Address: [address] [phone] When: Unknown Comments:iron studies, b12, folate, mma todayfollow-up in 6mo with LIGHTING ENGINEER [facility]08-29-2023 Hospital Discharge instructions Follow Up Care 06/28/2023 11:35:56 With:Roby Bob Address: [address] [phone] Business (1) When: Unknown Comments:Continue ELiquis for 6 months total.D dimer, CBCD and CMP end of December 2023.RTC end of December,sooner if new SOB or CP or Leg pain or swelling or bleeding. [facility]08-18-2023 Hospital Discharge instructions Patient Education [...] Follow these instructions at home: Medicines Take cnvi-duz-dsppwby and prescription medicines only as told by [...] is important. Where to find more information [place] [employer]: www.lung.org Centers for Disease Control [...] right away. Call your local emergency services (101 in the [place] Do not drive yourself [...] or DVT, call your local emergency services (481 in the [place] This information is not intended to replace advice given to you by your health care provider. Make sure you discuss any questions you have with your health care provider. Document Revised: 09/18/2021 Document Reviewed: 09/18/2021 [employer] Patient Education 2022 Suitey. Follow Up Care 06/16/2023 15:48:06 With:BREA JJ Address: [facility] [place] [place] [address] [phone] Business (1) When:1 week Comments:A voice message is left with this office with your information so they can call you for a follow upappiontment. Please call them if you do not hear from them in a few days. Thank you. With:Ezekiel Christian Address: [facility] [address] [place], [place] [address]e. LI[place] [address]- When:06/28/2023 11:00:00 [facility]08-18-2023 Evaluation + Plan noteExtracted from: Title:Discharge NoteAuthor:JANETTE BOOTHE, MbarronfoDate:06/17/23 Discharge To, Anticipated II - Home with [...] puff(s), Inhalation, BID fluticasone Nasal 0.05 mg/inh [place], 2 spray(s), Nasal, Daily furosemide 20 mg Tab, 20 mg= 1 tab(s), Oral, Daily gabapentin 300 mg Cap, 300 mg= 1 cap(s), Oral, BID hydrochlorothiazide-lisinopril 25 mg-20 mg Tab, 1 tab(s), Oral, Daily lamotrigine 25 mg Tab, 25 mg= 1 tab(s), Oral, BID pioglitazone 15 mg Tab, 15 mg= 1 tab(s), Oral, Daily Potassium Chloride (Kjp-Pwie-Ved 10) 10 mEq oral tablet, extended release pramipexole 0.5 mg oral tablet, 0.5 mg= 1 tab(s), Oral, TID theophylline 300 mg ER Tab, 300 mg= 1 tab(s), Oral, q12hr traZODONE 50 mg Tab, 50 mg= 1 tab(s), Oral, Once a day (at bedtime) Ventolin HFA 90 mcg/inh Aerosol-Adpt, 1 puff(s), Inhalation, QID, PRN With When Contact Information Ezekiel Christian 06/28/2023 11:00 AM EDT [facility] [address] [place] [address]- Additional Instructions: BREA JJ Within 1 week [address] [place] [address] [phone] Business (1) Additional Instructions: A voice message is left with this office with your information so they cancall you for a follow up appiontment. Please call them if you do not hear from them in a few days. Thank you. Pulmonary Embolism Extracted from:Title:Admission H & PAuthor:JANETTE BOOTHE, MbanefoDate:06/16/23 57-year-old female cigarette smoker with history of hypertension, vbf-tkpwrcq-jojssyfda diabetes mellitus, obesity, chronic hypoxic respiratory failure [...] Ordered: Initial Hospital Care/Day High 75 Minutes 07145 2. Acute pulmonary embolism (I26.99: Other pulmonary [...] Ordered: Initial Hospital Care/Day High 75 Minutes 06152 3. Sinus tachycardia (R00.0: Tachycardia, unspecified) Secondary to above acute pulmonary embolism. Monitor on telemetry. Ordered: Initial Hospital Care/Day High 75 Minutes 52703 4. COPD without exacerbation (J44.9: Chronic obstructive pulmonary disease, unspecified) Supportive care. Continue on nebulizer treatments. Ordered: Initial Hospital Care/Day High 75 Minutes 06462 5. Hypertension (I10: Essential (primary) hypertension) We will verify home medications and resume accordingly. Ordered: Initial Hospital Care/Day High 75 Minutes 16457 6. Diabetes mellitus (E11.9: Type 2 diabetes [...] thrombosis (DVT) prophylaxis (Z79.899: Other long term acute care registered nurse (current) drug therapy) Eliquis. The patient will [...] made to ensure accuracy. However inadvertent computerized coat tailor errors may be present. Alex Barrientos. Hospitalist. [...] PRN Sleep, Routine, Start date 06/16/23 19:02:00 EDT,06/16/23 19:02:00 EDT Cardiac Monitoring Diabetic/Calorie Control Diet Echo Transthoracic Complete HgbA1c Hypoglycemia Protocol Responsive Patient Hypoglycemia Protocol Unresponsive Patient Pulse Oximetry Resuscitation Status - Full Routine Capillary Glucose POC Up ad Laura US LE Venous Duplex Bilateral Vital Signs Weight Extracted from:Title:ED NoteAuthor:Leandro Jo PA-C CDate:06/16/23 1. Chest pain (R07.9: Chest pain, unspecified) 2. Acute pulmonary embolism, (I26.99: Other pulmonary embolism without acute cor pulmonale)Pulmonary emboli 3. On deep vein thrombosis (DVT) prophylaxis (Z79.899: Other long term acute care registered nurse (current) drug therapy) 4. COPD without exacerbation (J44.9: Chronic obstructive pulmonary disease, unspecified) Orders: aspirin, 162 mg = 2 tab(s), Tab-Chew, Oral, Once, Stop date 06/16/23 16:15:00 EDT, STAT, Start date06/16/23 16:15:00 EDT, 06/16/23 16:15:00 EDT Automated Diff [...] Appointment Type:ONC Office Visit New 45 (FT) [facility]08-18-2023 Hospital Discharge instructions Follow Up Care 06/17/2023 09:42:41 With:Roby Bob Address: [facility] [place] [phone] Business (1) When: Unknown Comments:THrombophilia labs now with D dimer.D dimer in 3 weeks if D dimer from now is still high.Continue Eliquis 5 mg twice daily for minimum of 6 months.RTC in 3 weeks for results. [facility] Future Appointments Appointment Date:07/19/2023 10:00:00 AM Scheduled Provider: [facility] Type:[facility]C Office Visit 30 (FT) [facility] Future Appointments Appointment Date:01/16/2024 09:00:00 AM Scheduled Provider: [facility] App[facility] Type:ONC Office Visit 30 (FT) Future Scheduled Tests Laboratory* CBC w/ Auto Diff 12/27/23 * Comprehensive Metabolic Panel 12/27/23 * D-Dimer 12/27/23 [facility] Future Appointments Appointment Date:01/16/2024 11:30:00 AM Scheduled Provider:Mariama Moore Location:.[facility]COLOGY Appointment Type:ONC Office Visit 30 (FT) [facility] Future Appointments [...] 01/20/25 * Transferrin 07/23/24 * Transferrin 01/20/25 [facility] evaluation + Plan note Future Appointments Appointment Date:07/23/2024 10:40:00 AM Scheduled Provider:Mariama Moore Location:FT.ONCOLOGY Appointment Type:ONC Office Visit 30 (FT) [facility] evaluation + Plan note Future Appointments Appointment [...] 01/20/25 Radiology* NM Gastric Emptying Study 01/14/25 [facility] evaluation note* Diagnosis Other insomnia- Primary ROLANDO (obstructive sleep apnea) Obstructive sleep apnea (adult) (pediatric) COPD mixed type ([facility]) Tobacco dependence syndrome Tobacco use disorder BMI 37.0-37.9, adult Anxiety and depression ([facility]) Restless leg syndrome Restless legs syndrome (RLS) documented in this encounter [facility]* Diagnosis Anxiety and depression ([facility]/H[facility])- Primary Type 2 diabetes mellitus without complication, without long-term current use of insulin ([facility]) Arthritis Unspecified arthropathy, site unspecified documented in this encounter [facility]* Diagnosis Type 2 diabetes mellitus without complication, without long-term current use of insulin ([facility]/H[facility])- Primary Atherosclerosis of aorta ([facility]/H[facility]) Atherosclerosis of aorta documented in this encounter [facility]* Diagnosis Anxiety and depression ([facility]/HCC)- Primary Other insomnia Class 2 severe obesity due to excess calories with serious comorbidity and body mass index (BMI) of37.0 to 37.9 in adult (CMS/HCC) Type 2 [...] syndrome Restless legs syndrome (RLS) Primary hypertension ([facility]) Unspecified essential hypertension Type 2 diabetes mellitus without complication, without long-term current use of insulin ([facility]) Other insomnia Osteopenia after menopause- Primary documented in this encounter [facility]* Diagnosis Anxiety and depression (CMS/HCC)- Primary Other insomnia Class 2 severe obesity due to excess calories with serious comorbidity and body mass index (BMI) of37.0 to 37.9 in adult (CMS/HCC) Type 2 [...] (CMS/HCC) Mixed hyperlipidemia documented in this encounter [facility]* Diagnosis Anxiety and depression (CMS/HCC)- Primary Other insomnia Class 2 severe obesity due to excess calories with serious comorbidity and body mass index (BMI) of37.0 to 37.9 in adult (CMS/HCC) Type 2 [...] to excess calories (CMS/HCC) Essential (primary) hypertension ([facility]) Unspecified essential hypertension Body mass index (BMI) 37.0-37.9, adult Chronic respiratory failure with hypoxia ([facility]) Type 2 diabetes mellitus with other specified complication ([facility]) Atherosclerosis of aorta ([facility]) Atherosclerosis of aorta Mixed hyperlipidemia ([facility]) Mixed hyperlipidemia Anxiety and depression ([facility]) Restless leg syndrome Restless legs syndrome (RLS) Primary hypertension ([facility]) Unspecified essential hypertension Type 2 diabetes mellitus without complication, without long-term current use of insulin ([facility]) Right upper quadrant abdominal pain COPD mixed type ([facility]) Gastroesophageal reflux disease without esophagitis Esophageal reflux Anxiety and depression ([facility])- Primary Mixed hyperlipidemia ([facility]) Mixed hyperlipidemia Restless leg syndrome Restless legs syndrome (RLS) Primary hypertension ([facility]) Unspecified essential hypertension Type 2 diabetes mellitus without complication, without long-term current use of insulin ([facility]) Other insomnia Gastroesophageal reflux disease without esophagitis Esophageal reflux documented in this encounter [facility]* Diagnosis Gastroesophageal reflux disease without esophagitis Esophageal reflux documented in this encounter [facility]* Diagnosis Anxiety and depression ([facility])- Primary Mixed hyperlipidemia ([facility]) Mixed hyperlipidemia Restless leg syndrome Restless legs syndrome (RLS) Primary hypertension ([facility]) Unspecified essential hypertension Type 2 diabetes mellitus without complication, without long-term current use of insulin ([facility]) Other insomnia documented in this encounter [facility]* Diagnosis Anxiety and depression ([facility])- Primary Other insomnia Class 2 severe obesity due to excess calories with serious comorbidity and body mass index (BMI) of37.0 to 37.9 in adult ([facility]) Type 2 diabetes mellitus without complication, without long-term current use of insulin ([facility]) ROLANDO (obstructive sleep apnea) Obstructive sleep apnea (adult) (pediatric) Other insomnia- Primary ROLANDO (obstructive sleep apnea) Obstructive sleep apnea (adult) (pediatric) COPD mixed type ([facility]) Tobacco dependence syndrome Tobacco use disorder BMI 37.0-37.9, adult Anxiety and depression ([facility]) Restless leg syndrome Restless legs syndrome (RLS) Other insomnia- Primary Anxiety and depression ([facility]) Restless leg syndrome Restless legs syndrome (RLS) Acute non-recurrent maxillary sinusitis Right upper quadrant abdominal pain Other fatigue- Primary Morbid (severe) obesity due to excess calories ([facility]) Essential (primary) hypertension ([facility]) Unspecified essential hypertension Body mass index (BMI) 37.0-37.9, adult Chronic respiratory failure with hypoxia ([facility]) Type 2 diabetes mellitus with other specified complication ([facility]) Atherosclerosis of aorta ([facility]) Atherosclerosis of aorta Mixed hyperlipidemia ([facility]) Mixed hyperlipidemia Anxiety and depression ([facility]) Restless leg syndrome Restless legs syndrome (RLS) Primary hypertension ([facility]) Unspecified essential hypertension Type 2 diabetes mellitus without complication, without long-term current use of insulin ([facility]) Right upper quadrant abdominal pain COPD mixed type ([facility]) Gastroesophageal reflux disease without esophagitis Esophageal reflux Anxiety and depression ([facility])- Primary Mixed hyperlipidemia ([facility]) Mixed hyperlipidemia Restless leg syndrome Restless legs syndrome (RLS) Primary hypertension ([facility]) Unspecified essential hypertension Type 2 diabetes mellitus without complication, without long-term current use of insulin ([facility]) Other insomnia Rash- Primary Rash and other nonspecific skin eruption Essential (primary) hypertension ([facility]) Unspecified essential hypertension Edema of both lower extremities Class 2 severe obesity due to excess calories with serious comorbidity and body mass index (BMI) of37.0 to 37.9 in adult ([facility]) ROLANDO (obstructive sleep apnea) Obstructive sleep apnea (adult) (pediatric) Type 2 diabetes mellitus without complication, without long-term current use of insulin ([facility]) Gastroenteritis Other and unspecified noninfectious gastroenteritis and colitis Iron deficiency anemia, unspecified iron deficiency anemia type documented in this encounter [facility] HealthcareEvaluation note* Diagnosis Anxiety and depression ([facility])- Primary Other insomnia Class 2 severe obesity due to excess calories with serious comorbidity and body mass index (BMI) of37.0 to 37.9 in adult ([facility]) Type 2 diabetes mellitus without complication, without long-term current use of insulin ([facility]) ROLANDO (obstructive sleep apnea) Obstructive sleep apnea (adult) (pediatric) Other insomnia- Primary ROLANDO (obstructive sleep apnea) Obstructive sleep apnea (adult) (pediatric) COPD mixed type ([facility]) Tobacco dependence syndrome Tobacco use disorder BMI 37.0-37.9, adult Anxiety and depression ([facility]) Restless leg syndrome Restless legs syndrome (RLS) Other insomnia- Primary Anxiety and depression ([facility]) Restless leg syndrome Restless legs syndrome (RLS) Acute non-recurrent maxillary sinusitis Right upper quadrant abdominal pain Other fatigue- Primary Morbid (severe) obesity due to excess calories ([facility]) Essential (primary) hypertension ([facility]) Unspecified essential hypertension Body mass index (BMI) 37.0-37.9, adult Chronic respiratory failure with hypoxia ([facility]) Type 2 diabetes mellitus with other specified complication ([facility]) Atherosclerosis of aorta ([facility] Atherosclerosis of aorta Mixed hyperlipidemia ([facility]) Mixed hyperlipidemia Anxiety and depression ([facility]) Restless leg syndrome Restless legs syndrome (RLS) Primary hypertension ([facility]) Unspecified essential hypertension Type 2 diabetes mellitus without complication, without long-term current use of insulin ([facility]) Right upper quadrant abdominal pain COPD mixed type ([facility]) Gastroesophageal reflux disease without esophagitis Esophageal reflux Anxiety and depression ([facility])- Primary Mixed hyperlipidemia ([facility]) Mixed hyperlipidemia Restless leg syndrome Restless legs syndrome (RLS) Primary hypertension ([facility]) Unspecified essential hypertension Type 2 diabetes mellitus without complication, without long-term current use of insulin ([facility]) Other insomnia Rash- Primary Rash and other nonspecific skin eruption Essential (primary) hypertension ([facility]) Unspecified essential hypertension Edema of both lower extremities Class 2 severe obesity due to excess calories with serious comorbidity and body mass index (BMI) of37.0 to 37.9 in adult ([facility]) ROLANDO (obstructive sleep apnea) Obstructive sleep apnea (adult) (pediatric) Type 2 diabetes mellitus without complication, without long-term current use of insulin ([facility]) Gastroenteritis Other and unspecified noninfectious gastroenteritis and colitis Iron deficiency anemia, unspecified iron deficiency anemia type Weight loss, unintentional- Primary Loss of weight Chronic respiratory failure with hypoxia ([facility]) Morbid (severe) obesity due to excess calories ([facility]) Essential (primary) hypertension ([facility]) Unspecified essential hypertension Class 2 severe obesity due to excess calories with serious comorbidity and body mass index (BMI) of37.0 to 37.9 in adult ([facility]) Rash Rash and other nonspecific skin eruption Tobacco dependence syndrome Tobacco use disorder Anxiety and depression ([facility]) Mixed hyperlipidemia ([facility]) Mixed hyperlipidemia Iron deficiency anemia, unspecified iron deficiency anemia type Restless leg syndrome Restless legs syndrome (RLS) Primary hypertension ([facility]) Unspecified essential hypertension Gastroesophageal reflux disease without esophagitis Esophageal reflux Type 2 diabetes mellitus without complication, without long-term current use of insulin ([facility]) Edema of both lower extremities Nausea and vomiting, unspecified vomiting type Diarrhea, unspecified type documented in this encounter [facility] HealthcareEvaluation note* Diagnosis Anxiety and depression ([facility])- Primary Other insomnia Class 2 severe obesity due to excess calories with serious comorbidity and body mass index (BMI) of37.0 to 37.9 in adult ([facility]) Type 2 diabetes mellitus without complication, without long-term current use of insulin ([facility]) ROLANDO (obstructive sleep apnea) Obstructive sleep apnea (adult) (pediatric) Other insomnia- Primary ROLANDO (obstructive sleep apnea) Obstructive sleep apnea (adult) (pediatric) COPD mixed type ([facility]) Tobacco dependence syndrome Tobacco use disorder BMI 37.0-37.9, adult Anxiety and depression ([facility]) Restless leg syndrome Restless legs syndrome (RLS) Other insomnia- Primary Anxiety and depression ([facility]) Restless leg syndrome Restless legs syndrome (RLS) Acute non-recurrent maxillary sinusitis Right upper quadrant abdominal pain Other fatigue- Primary Morbid (severe) obesity due to excess calories ([facility]) Essential (primary) hypertension ([facility]) Unspecified essential hypertension Body mass index (BMI) 37.0-37.9, adult Chronic respiratory failure with hypoxia ([facility]) Type 2 diabetes mellitus with other specified complication ([facility]) Atherosclerosis of aorta ([facility]) Atherosclerosis of aorta Mixed hyperlipidemia ([facility]) Mixed hyperlipidemia Anxiety and depression ([facility]) Restless leg syndrome Restless legs syndrome (RLS) Primary hypertension ([facility]) Unspecified essential hypertension Type 2 diabetes mellitus without complication, without long-term current use of insulin ([facility]) Right upper quadrant abdominal pain COPD mixed type ([facility]) Gastroesophageal reflux disease without esophagitis Esophageal reflux Anxiety and depression ([facility])- Primary Mixed hyperlipidemia (CMS/HCC) Mixed hyperlipidemia Restless leg syndrome Restless legs syndrome (RLS) Primary hypertension ([facility]) Unspecified essential hypertension Type 2 diabetes mellitus without complication, without long-term current use of insulin ([facility]) Other insomnia Rash- Primary Rash and other nonspecific skin eruption Essential (primary) hypertension (CMS/HCC) Unspecified essential hypertension Edema of both lower extremities Class 2 severe obesity due to excess calories with serious comorbidity and body mass index (BMI) of37.0 to 37.9 in adult ([facility]) ROLANDO (obstructive sleep apnea) Obstructive sleep apnea (adult) (pediatric) Type 2 diabetes mellitus without complication, without long-term current use of insulin ([facility]) Gastroenteritis Other and unspecified noninfectious gastroenteritis and colitis Iron deficiency anemia, unspecified iron deficiency anemia type Weight loss, unintentional- Primary Loss of weight Chronic respiratory failure with hypoxia ([facility]) Morbid (severe) obesity due to excess calories ([facility]) Essential (primary) hypertension ([facility]) Unspecified essential hypertension Class 2 severe obesity due to excess calories with serious comorbidity and body mass index (BMI) of37.0 to 37.9 in adult ([facility]) Rash Rash and other nonspecific skin eruption Tobacco dependence syndrome Tobacco use disorder Anxiety and depression ([facility]) Mixed hyperlipidemia ([facility]) Mixed hyperlipidemia Iron deficiency anemia, unspecified iron deficiency anemia type Restless leg syndrome Restless legs syndrome (RLS) Primary hypertension ([facility]) Unspecified essential hypertension Gastroesophageal reflux disease without esophagitis Esophageal reflux Type 2 diabetes mellitus without complication, without long-term current use of insulin ([facility]) Edema of both lower extremities Nausea and vomiting, unspecified vomiting type Diarrhea, unspecified type Anxiety and depression ([facility]) Restless leg syndrome Restless legs syndrome (RLS) Other insomnia documented in this encounter [facility] HealthcareEvaluation note* Diagnosis Anxiety and depression ([facility])- Primary Other insomnia Class 2 severe obesity due to excess calories with serious comorbidity and body mass index (BMI) of37.0 to 37.9 in adult ([facility]) Type 2 diabetes mellitus without complication, without long-term current use of insulin ([facility]) ROLANDO (obstructive sleep apnea) Obstructive sleep apnea (adult) (pediatric) Other insomnia- Primary ROLANDO (obstructive sleep apnea) Obstructive sleep apnea (adult) (pediatric) COPD mixed type ([facility]) Tobacco dependence syndrome Tobacco use disorder BMI 37.0-37.9, adult Anxiety and depression ([facility]) Restless leg syndrome Restless legs syndrome (RLS) Other insomnia- Primary Anxiety and depression ([facility]) Restless leg syndrome Restless legs syndrome (RLS) Acute non-recurrent maxillary sinusitis Right upper quadrant abdominal pain Other fatigue- Primary Morbid (severe) obesity due to excess calories ([facility]) Essential (primary) hypertension ([facility]) Unspecified essential hypertension Body mass index (BMI) 37.0-37.9, adult Chronic respiratory failure with hypoxia ([facility]) Type 2 diabetes mellitus with other specified complication ([facility] Atherosclerosis of aorta ([facility]) Atherosclerosis of aorta Mixed hyperlipidemia ([facility]) Mixed hyperlipidemia Anxiety and depression ([facility]) Restless leg syndrome Restless legs syndrome (RLS) Primary hypertension ([facility]) Unspecified essential hypertension Type 2 diabetes mellitus without complication, without long-term current use of insulin ([facility]) Right upper quadrant abdominal pain COPD mixed type ([facility]) Gastroesophageal reflux disease without esophagitis Esophageal reflux Anxiety and depression ([facility])- Primary Mixed hyperlipidemia ([facility]) Mixed hyperlipidemia Restless leg syndrome Restless legs syndrome (RLS) Primary hypertension ([facility]) Unspecified essential hypertension Type 2 diabetes mellitus without complication, without long-term current use of insulin ([facility]) Other insomnia Rash- Primary Rash and other nonspecific skin eruption Essential (primary) hypertension ([facility]) Unspecified essential hypertension Edema of both lower extremities Class 2 severe obesity due to excess calories with serious comorbidity and body mass index (BMI) of37.0 to 37.9 in adult ([facility]) ROLANDO (obstructive sleep apnea) Obstructive sleep apnea (adult) (pediatric) Type 2 diabetes mellitus without complication, without long-term current use of insulin ([facility]) Gastroenteritis Other and unspecified noninfectious gastroenteritis and colitis Iron deficiency anemia, unspecified iron deficiency anemia type Weight loss, unintentional- Primary Loss of weight Chronic respiratory failure with hypoxia ([facility]) Morbid (severe) obesity due to excess calories ([facility]) Essential (primary) hypertension ([facility]) Unspecified essential hypertension Class 2 severe obesity due to excess calories with serious comorbidity and body mass index (BMI) of37.0 to 37.9 in adult ([facility]) Rash Rash and other nonspecific skin eruption Tobacco dependence syndrome Tobacco use disorder Anxiety and depression ([facility]) Mixed hyperlipidemia ([facility]) Mixed hyperlipidemia Iron deficiency anemia, unspecified iron deficiency anemia type Restless leg syndrome Restless legs syndrome (RLS) Primary hypertension ([facility]) Unspecified essential hypertension Gastroesophageal reflux disease [...] serious comorbidity and body mass index (BMI) of37.0 to 37.9 in adult ([facility]) Type 2 diabetes mellitus without complication, [...] 37.0-37.9, adult Chronic respiratory failure with hypoxia ([facility]) Type 2 diabetes mellitus with other [...] current use of insulin (CMS/HCC) Other insomnia Rash- Primary Rash and other nonspecific skin eruption Essential (primary) hypertension (CMS/HCC) Unspecified essential hypertension Edema of both lower extremities Class 2 severe obesity due to excess calories with serious comorbidity and body mass index (BMI) of37.0 to 37.9 in adult ([facility]) ROLANDO (obstructive sleep apnea) Obstructive sleep apnea (adult) (pediatric) Type 2 diabetes mellitus without complication, without long-term current use of insulin ([facility]) Gastroenteritis Other and unspecified noninfectious gastroenteritis and colitis Iron deficiency anemia, unspecified iron deficiency anemia type Weight loss, unintentional- Primary Loss of weight Chronic respiratory failure with hypoxia ([facility]) Morbid (severe) obesity due to excess calories ([facility]) Essential (primary) hypertension ([facility]) Unspecified essential hypertension Class 2 severe obesity due to excess calories with serious comorbidity and body mass index (BMI) of37.0 to 37.9 in adult ([facility]) Rash Rash and other nonspecific skin eruption Tobacco dependence syndrome Tobacco use disorder Anxiety and depression ([facility]) Mixed hyperlipidemia ([facility]) Mixed hyperlipidemia Iron deficiency anemia, unspecified iron deficiency anemia type Restless leg syndrome Restless legs syndrome (RLS) Primary hypertension ([facility]) Unspecified essential hypertension Gastroesophageal reflux disease without esophagitis Esophageal reflux Type 2 diabetes mellitus without complication, without long-term current use of insulin ([facility]) Edema of both lower extremities Nausea and vomiting, unspecified vomiting type Diarrhea, unspecified type Other atopic dermatitis Lichen simplex chronicus Lichenification and lichen simplex chronicus documented in this encounter [facility] HealthcareEvaluation note* Diagnosis Anxiety and depression ([facility])- Primary Other insomnia Class 2 severe obesity due to excess calories with serious comorbidity and body mass index (BMI) of37.0 to 37.9 in adult ([facility]) Type 2 diabetes mellitus without complication, without long-term current use of insulin ([facility]) ROLANDO (obstructive sleep apnea) Obstructive sleep apnea (adult) (pediatric) Other insomnia- Primary ROLANDO (obstructive sleep apnea) Obstructive sleep apnea (adult) (pediatric) COPD mixed type ([facility]) Tobacco dependence syndrome Tobacco use disorder BMI 37.0-37.9, adult Anxiety and depression ([facility]) Restless leg syndrome Restless legs syndrome (RLS) Other insomnia- Primary Anxiety and depression ([facility]) Restless leg syndrome Restless legs syndrome (RLS) Acute non-recurrent maxillary sinusitis Right upper quadrant abdominal pain Other fatigue- Primary Morbid (severe) obesity due to excess calories ([facility]) Essential (primary) hypertension ([facility]) Unspecified essential hypertension Body mass index (BMI) 37.0-37.9, adult Chronic respiratory failure with hypoxia ([facility]) Type 2 diabetes mellitus with other specified complication ([facility] Atherosclerosis of aorta ([facility]) Atherosclerosis of aorta Mixed hyperlipidemia ([facility]) Mixed hyperlipidemia Anxiety and depression ([facility]) Restless leg syndrome Restless legs syndrome (RLS) Primary hypertension ([facility]) Unspecified essential hypertension Type 2 diabetes mellitus without complication, without long-term current use of insulin ([facility]) Right upper quadrant abdominal pain COPD mixed type ([facility] Gastroesophageal reflux disease without esophagitis Esophageal reflux Anxiety and depression ([facility])- Primary Mixed hyperlipidemia ([facility]) Mixed hyperlipidemia Restless leg syndrome Restless legs syndrome (RLS) Primary hypertension ([facility]) Unspecified essential hypertension Type 2 diabetes mellitus without complication, without long-term current use of insulin ([facility]) Other insomnia Rash- Primary Rash and other nonspecific skin eruption Essential (primary) hypertension ([facility]) Unspecified essential hypertension Edema of both lower extremities Class 2 severe obesity due to excess calories with serious comorbidity and body mass index (BMI) of37.0 to 37.9 in adult ([facility]) ROLANDO (obstructive sleep apnea) Obstructive sleep apnea (adult) (pediatric) Type 2 diabetes mellitus without complication, without long-term current use of insulin ([facility]) Gastroenteritis Other and unspecified noninfectious gastroenteritis and colitis Iron deficiency anemia, unspecified iron deficiency anemia type Weight loss, unintentional- Primary Loss of weight Chronic respiratory failure with hypoxia ([facility]) Morbid (severe) obesity due to excess calories ([facility]) Essential (primary) hypertension ([facility]) Unspecified essential hypertension Class 2 severe obesity due to excess calories with serious comorbidity and body mass index (BMI) of37.0 to 37.9 in adult ([facility]) Rash Rash and other nonspecific skin eruption Tobacco dependence syndrome Tobacco use disorder Anxiety and depression ([facility]) Mixed hyperlipidemia ([facility]) Mixed hyperlipidemia Iron deficiency anemia, unspecified iron deficiency anemia type Restless leg syndrome Restless legs syndrome (RLS) Primary hypertension ([facility]) Unspecified essential hypertension Gastroesophageal reflux disease without esophagitis Esophageal reflux Type 2 diabetes mellitus without complication, without long-term current use of insulin ([facility]) Edema of both lower extremities Nausea [...] serious comorbidity and body mass index (BMI) of37.0 to 37.9 in adult ([facility]) Type 2 diabetes mellitus without complication, [...] Morbid (severe) obesity due to excess calories ([facility]) Essential (primary) hypertension ([facility]/HCC) Unspecified essential hypertension Body mass index (BMI) 37.0-37.9, adult Chronic respiratory failure with hypoxia ([facility]) Type 2 diabetes mellitus with other specified complication ([facility]/HCC) Atherosclerosis of aorta (CMS/HCC) Atherosclerosis of aorta Mixed hyperlipidemia (CMS/HCC) Mixed hyperlipidemia Anxiety and depression ([facility]/HCC) Restless leg syndrome Restless legs syndrome (RLS) Primary hypertension (CMS/HCC) Unspecified essential hypertension Type 2 diabetes mellitus without complication, without long-term current use of insulin ([facility]) Right upper quadrant abdominal pain COPD mixed type (CMS/HCC) Gastroesophageal reflux disease without esophagitis Esophageal reflux Anxiety and depression (CMS/HCC)- Primary Mixed hyperlipidemia (CMS/HCC) Mixed hyperlipidemia Restless leg syndrome Restless legs syndrome (RLS) Primary hypertension (CMS/HCC) Unspecified essential hypertension Type 2 diabetes mellitus without complication, without long-term current use of insulin ([facility]/HCC) Other insomnia Rash- Primary Rash and other nonspecific skin eruption Essential (primary) hypertension (CMS/HCC) Unspecified essential hypertension Edema of both lower extremities Class 2 severe obesity due to excess calories with serious comorbidity and body mass index (BMI) of37.0 to 37.9 in adult ([facility]/HCC) ROLANDO (obstructive sleep apnea) Obstructive sleep apnea (adult) (pediatric) Type 2 diabetes mellitus without complication, without long-term current use of insulin ([facility]) Gastroenteritis Other and unspecified noninfectious gastroenteritis and colitis Iron deficiency anemia, unspecified iron deficiency anemia type Weight loss, unintentional- Primary Loss of weight Chronic respiratory failure with hypoxia ([facility]) Morbid (severe) obesity due to excess calories ([facility]) Essential (primary) hypertension ([facility]) Unspecified essential hypertension Class 2 severe obesity due to excess calories with serious comorbidity and body mass index (BMI) of37.0 to 37.9 in adult ([facility]) Rash Rash and other nonspecific skin eruption Tobacco dependence syndrome Tobacco use disorder Anxiety and depression ([facility]) Mixed hyperlipidemia ([facility]) Mixed hyperlipidemia Iron deficiency anemia, unspecified iron deficiency anemia type Restless leg syndrome Restless legs syndrome (RLS) Primary hypertension ([facility]) Unspecified essential hypertension Gastroesophageal reflux disease without esophagitis Esophageal reflux Type 2 diabetes mellitus without complication, without long-term current use of insulin ([facility]) Edema of both lower extremities Nausea and vomiting, unspecified vomiting type Diarrhea, unspecified type Irritable bowel syndrome with diarrhea- Primary Irritable bowel syndrome Centrilobular emphysema ([facility]) Chronic respiratory failure with hypoxia ([facility]) Essential (primary) hypertension ([facility]) Unspecified essential hypertension Gastroesophageal reflux disease without esophagitis Esophageal reflux Class 2 severe obesity due to excess calories with serious comorbidity and body mass index (BMI) of37.0 to 37.9 in adult ([facility]) Occult blood positive stool Nonspecific abnormal finding in stool contents Tobacco dependence syndrome Tobacco use disorder Anxiety and depression ([facility]) [facility] Diagnosis Anxiety and depression ([facility])- Primary Other insomnia Class 2 severe obesity due to excess calories with serious comorbidity and body mass index (BMI) of37.0 to 37.9 in adult ([facility]) Type 2 diabetes mellitus without complication, without long-term current use of insulin ([facility]) ROLANDO (obstructive sleep apnea) Obstructive sleep apnea (adult) (pediatric) Other insomnia- Primary ROLANDO (obstructive sleep apnea) Obstructive sleep apnea (adult) (pediatric) COPD mixed type ([facility]) Tobacco dependence syndrome Tobacco use disorder BMI 37.0-37.9, adult Anxiety and depression ([facility]) Restless leg syndrome Restless legs syndrome (RLS) Other insomnia- Primary Anxiety and depression ([facility]/HCC) Restless leg syndrome Restless legs syndrome (RLS) Acute non-recurrent maxillary sinusitis Right upper quadrant abdominal pain Other fatigue- Primary Morbid (severe) obesity due to excess calories ([facility]) Essential (primary) hypertension ([facility]) Unspecified essential hypertension Body mass index (BMI) 37.0-37.9, adult Chronic respiratory failure with hypoxia ([facility]) Type 2 diabetes mellitus with other specified complication ([facility] Atherosclerosis of aorta ([facility]) Atherosclerosis of aorta Mixed hyperlipidemia ([facility] Mixed hyperlipidemia Anxiety and depression ([facility]) Restless leg syndrome Restless legs syndrome (RLS) Primary hypertension ([facility]) Unspecified essential hypertension Type 2 diabetes mellitus without complication, without long-term current use of insulin ([facility]) Right upper quadrant abdominal pain COPD mixed type ([facility] Gastroesophageal reflux disease without esophagitis Esophageal reflux Anxiety and depression ([facility])- Primary Mixed hyperlipidemia ([facility]) Mixed hyperlipidemia Restless leg syndrome Restless legs syndrome (RLS) Primary hypertension ([facility]) Unspecified essential hypertension Type 2 diabetes mellitus without complication, without long-term current use of insulin ([facility]) Other insomnia Rash- Primary Rash and other nonspecific skin eruption Essential (primary) hypertension ([facility]) Unspecified essential hypertension Edema of both lower extremities Class 2 severe obesity due to excess calories with serious comorbidity and body mass index (BMI) of37.0 to 37.9 in adult ([facility]) ROLANDO (obstructive sleep apnea) Obstructive sleep apnea (adult) (pediatric) Type 2 diabetes mellitus without complication, without long-term current use of insulin ([facility]) Gastroenteritis Other and unspecified noninfectious gastroenteritis and colitis Iron deficiency anemia, unspecified iron deficiency anemia type Weight loss, unintentional- Primary Loss of weight Chronic respiratory failure with hypoxia ([facility]) Morbid (severe) obesity due to excess calories ([facility]) Essential (primary) hypertension ([facility]) Unspecified essential hypertension Class 2 severe obesity due to excess calories with serious comorbidity and body mass index (BMI) of37.0 to 37.9 in adult ([facility]) Rash Rash and other nonspecific skin eruption Tobacco dependence syndrome Tobacco use disorder Anxiety and depression ([facility]) Mixed hyperlipidemia ([facility]) Mixed hyperlipidemia Iron deficiency anemia, unspecified iron deficiency anemia type Restless leg syndrome Restless legs syndrome (RLS) Primary hypertension ([facility]/HCC) Unspecified essential hypertension Gastroesophageal reflux disease without esophagitis Esophageal reflux Type 2 diabetes mellitus without complication, without long-term current use of insulin ([facility]) Edema of both lower extremities Nausea and vomiting, unspecified vomiting type Diarrhea, unspecified type Irritable bowel syndrome with diarrhea- Primary Irritable bowel syndrome Centrilobular emphysema ([facility]) Chronic respiratory failure with hypoxia ([facility]) Essential (primary) hypertension ([facility]) Unspecified essential hypertension Gastroesophageal reflux disease without esophagitis Esophageal reflux Class 2 severe obesity due to excess calories with serious comorbidity and body mass index (BMI) of37.0 to 37.9 in adult ([facility]) Occult blood positive stool Nonspecific abnormal finding in stool contents Tobacco dependence syndrome Tobacco use disorder Anxiety and depression ([facility]) Other atopic dermatitis documented in [facility]* Diagnosis Anxiety and depression ([facility])- Primary Other insomnia Class 2 severe obesity due to excess calories with serious comorbidity and body mass index (BMI) of37.0 to 37.9 in adult ([facility]) Type 2 diabetes mellitus without complication, without long-term current use of insulin ([facility]) ROLANDO (obstructive sleep apnea) Obstructive sleep apnea (adult) (pediatric) Other insomnia- Primary ROLANDO (obstructive sleep apnea) Obstructive sleep apnea (adult) (pediatric) COPD mixed type ([facility]) Tobacco dependence syndrome Tobacco use disorder BMI 37.0-37.9, adult Anxiety and depression ([facility]) Restless leg syndrome Restless legs syndrome (RLS) Other insomnia- Primary Anxiety and depression ([facility]) Restless leg syndrome Restless legs syndrome (RLS) Acute non-recurrent maxillary sinusitis Right upper quadrant abdominal pain Other fatigue- Primary Morbid (severe) obesity due to excess calories ([facility]) Essential (primary) hypertension ([facility]) Unspecified essential hypertension Body mass index (BMI) 37.0-37.9, adult Chronic respiratory failure with hypoxia ([facility]) Type 2 diabetes mellitus with other specified complication ([facility] Atherosclerosis of aorta ([facility]) Atherosclerosis of aorta Mixed hyperlipidemia ([facility]) Mixed hyperlipidemia Anxiety and depression ([facility]) Restless leg syndrome Restless legs syndrome (RLS) Primary hypertension ([facility]) Unspecified essential hypertension Type 2 diabetes mellitus without complication, without long-term current use of insulin ([facility]) Right upper quadrant abdominal pain COPD mixed type ([facility] Gastroesophageal reflux disease without esophagitis Esophageal reflux Anxiety and depression ([facility])- Primary Mixed hyperlipidemia ([facility]) Mixed hyperlipidemia Restless leg syndrome Restless legs syndrome (RLS) Primary hypertension ([facility]) Unspecified essential hypertension Type 2 diabetes mellitus without complication, without long-term current use of insulin ([facility]) Other insomnia Rash- Primary Rash and other nonspecific skin eruption Essential (primary) hypertension ([facility]) Unspecified essential hypertension Edema of both lower extremities Class 2 severe obesity due to excess calories with serious comorbidity and body mass index (BMI) of37.0 to 37.9 in adult ([facility]) ROLANDO (obstructive sleep apnea) Obstructive sleep apnea (adult) (pediatric) Type 2 diabetes mellitus without complication, without long-term current use of insulin ([facility]) Gastroenteritis Other and unspecified noninfectious gastroenteritis and colitis Iron deficiency anemia, unspecified iron deficiency anemia type Weight loss, unintentional- Primary Loss of weight Chronic respiratory failure with hypoxia ([facility]) Morbid (severe) obesity due to excess calories ([facility]) Essential (primary) hypertension ([facility]) Unspecified essential hypertension Class 2 severe obesity due to excess calories with serious comorbidity and body mass index (BMI) of37.0 to 37.9 in adult ([facility]) Rash Rash and other nonspecific skin eruption Tobacco dependence syndrome Tobacco use disorder Anxiety and depression ([facility]) Mixed hyperlipidemia ([facility]) Mixed hyperlipidemia Iron deficiency anemia, unspecified iron deficiency anemia type Restless leg syndrome Restless legs syndrome (RLS) Primary hypertension ([facility]) Unspecified essential hypertension Gastroesophageal reflux disease without esophagitis Esophageal reflux Type 2 diabetes mellitus without complication, without long-term current use of insulin ([facility]) Edema of both lower extremities Nausea and vomiting, unspecified vomiting type Diarrhea, unspecified type Irritable bowel syndrome with diarrhea- Primary Irritable bowel syndrome Centrilobular emphysema ([facility]) Chronic respiratory failure with hypoxia ([facility]) Essential (primary) hypertension ([facility]) Unspecified essential hypertension Gastroesophageal reflux disease without esophagitis Esophageal reflux Class 2 severe obesity due to excess calories with serious comorbidity and body mass index (BMI) of37.0 to 37.9 in adult ([facility]) Occult blood positive stool Nonspecific abnormal finding in stool contents Tobacco dependence syndrome Tobacco use disorder Anxiety and depression (CMS/HCC) Edema of both lower extremities- Primary documented [facility]* Diagnosis Anxiety and depression (CMS/HCC)- Primary Other insomnia Class 2 severe obesity due to excess calories with serious comorbidity and body mass index (BMI) of37.0 to 37.9 in adult (CMS/HCC) Type 2 [...] to excess calories (CMS/HCC) Essential (primary) hypertension ([facility]/HCC) Unspecified essential hypertension Body mass index (BMI) [...] serious comorbidity and body mass index (BMI) of37.0 to 37.9 in adult (CMS/HCC) ROLANDO (obstructive sleep apnea) Obstructive sleep apnea (adult) (pediatric) Type 2 diabetes mellitus without complication, without long-term current use of insulin Gastroenteritis Other and unspecified noninfectious gastroenteritis and colitis Iron deficiency anemia, unspecified iron deficiency anemia type Weight loss, unintentional- Primary Loss of weight Chronic respiratory failure with hypoxia ([facility]) Morbid (severe) obesity due to excess calories ([facility]) Essential (primary) hypertension ([facility]) Unspecified essential hypertension Class 2 severe obesity due to excess calories with serious comorbidity and body mass index (BMI) of37.0 to 37.9 in adult ([facility]) Rash Rash and other nonspecific skin eruption Tobacco dependence syndrome Tobacco use disorder Anxiety and depression ([facility]) Mixed hyperlipidemia ([facility]) Mixed hyperlipidemia Iron deficiency anemia, unspecified iron deficiency anemia type Restless leg syndrome Restless legs syndrome (RLS) Primary hypertension ([facility]) Unspecified essential hypertension Gastroesophageal reflux disease without esophagitis Esophageal reflux Type 2 diabetes mellitus without complication, without long-term current use of insulin Edema of both lower extremities Nausea and vomiting, unspecified vomiting type Diarrhea, unspecified type Irritable bowel syndrome with diarrhea- Primary Irritable bowel syndrome Centrilobular emphysema ([facility]) Chronic respiratory failure with hypoxia ([facility]) Essential (primary) hypertension ([facility]) Unspecified essential hypertension Gastroesophageal reflux disease without esophagitis Esophageal reflux Class 2 severe obesity due to excess calories with serious comorbidity and body mass index (BMI) of37.0 to 37.9 in adult ([facility]) Occult blood positive stool Nonspecific abnormal finding in stool contents Tobacco dependence syndrome Tobacco use disorder Anxiety and depression ([facility]) Anxiety and depression ([facility]) documented [facility]* Diagnosis Anxiety and depression ([facility])- Primary Other insomnia Class 2 severe obesity due to excess calories with serious comorbidity and body mass index (BMI) of37.0 to 37.9 in adult ([facility]) Type 2 diabetes mellitus without complication, without long-term current use of insulin ROLANDO (obstructive sleep apnea) Obstructive sleep apnea (adult) (pediatric) Other insomnia- Primary ROLANDO (obstructive sleep apnea) Obstructive sleep apnea (adult) (pediatric) COPD mixed type ([facility]) Tobacco dependence syndrome Tobacco use disorder BMI 37.0-37.9, adult Anxiety and depression ([facility]) Restless leg syndrome Restless legs syndrome (RLS) Other insomnia- Primary Anxiety and depression ([facility]) Restless leg syndrome Restless legs syndrome (RLS) Acute non-recurrent maxillary sinusitis Right upper quadrant abdominal pain Other fatigue- Primary Morbid (severe) obesity due to excess calories ([facility]) Essential (primary) hypertension ([facility]) Unspecified essential hypertension Body mass index (BMI) 37.0-37.9, adult Chronic respiratory failure with hypoxia ([facility]) Type 2 diabetes mellitus with other specified complication Atherosclerosis of aorta ([facility]) Atherosclerosis of aorta Mixed hyperlipidemia ([facility]) Mixed hyperlipidemia Anxiety and depression ([facility]) Restless leg syndrome Restless legs syndrome (RLS) Primary hypertension ([facility]) Unspecified essential hypertension Type 2 diabetes mellitus without complication, without long-term current use of insulin Right upper quadrant abdominal pain COPD mixed type ([facility]) Gastroesophageal reflux disease without esophagitis Esophageal reflux Anxiety and depression ([facility])- Primary Mixed hyperlipidemia ([facility]) Mixed hyperlipidemia Restless leg syndrome Restless legs syndrome (RLS) Primary hypertension ([facility]) Unspecified essential hypertension Type 2 diabetes mellitus without complication, without long-term current use of insulin Other insomnia Rash- Primary Rash and other nonspecific skin eruption Essential (primary) hypertension ([facility]) Unspecified essential hypertension Edema of both lower extremities Class 2 severe obesity due to excess calories with serious comorbidity and body mass index (BMI) of37.0 to 37.9 in adult ([facility]) ROLANDO (obstructive sleep apnea) Obstructive sleep apnea (adult) (pediatric) Type 2 diabetes mellitus without complication, without long-term current use of insulin Gastroenteritis Other and unspecified noninfectious gastroenteritis and colitis Iron deficiency anemia, unspecified iron deficiency anemia type Weight loss, unintentional- Primary Loss of weight Chronic respiratory failure with hypoxia ([facility]) Morbid (severe) obesity due to excess calories ([facility]) Essential (primary) hypertension ([facility]) Unspecified essential hypertension Class 2 severe obesity due to excess calories with serious comorbidity and body mass index (BMI) of37.0 to 37.9 in adult ([facility]) Rash Rash and other nonspecific skin eruption Tobacco dependence syndrome Tobacco use disorder Anxiety and depression ([facility]) Mixed hyperlipidemia ([facility]) Mixed hyperlipidemia Iron deficiency anemia, unspecified iron deficiency anemia type Restless leg syndrome Restless legs syndrome (RLS) Primary hypertension ([facility]) Unspecified essential hypertension Gastroesophageal reflux disease without esophagitis Esophageal reflux Type 2 diabetes mellitus without complication, without long-term current use of insulin Edema of both lower extremities Nausea and vomiting, unspecified vomiting type Diarrhea, unspecified type Irritable bowel syndrome with diarrhea- Primary Irritable bowel syndrome Centrilobular emphysema (CMS/HCC) Chronic respiratory failure with hypoxia ([facility]) Essential (primary) hypertension ([facility]/HCC) Unspecified essential hypertension Gastroesophageal reflux disease without esophagitis Esophageal reflux Class 2 severe obesity due to excess calories with serious comorbidity and body mass index (BMI) of37.0 to 37.9 in adult ([facility]) Occult blood positive stool Nonspecific abnormal finding in stool contents Tobacco dependence syndrome Tobacco use disorder Anxiety and depression (CMS/HCC) Edema of both lower extremities- Primary documented [facility] Diagnosis Anxiety and depression ([facility]/HCC)- Primary Other insomnia Class 2 severe obesity due to excess calories with serious comorbidity and body mass index (BMI) of37.0 to 37.9 in adult ([facility]) Type 2 diabetes mellitus without complication, without long-term current use of insulin ROLANDO (obstructive sleep apnea) Obstructive sleep apnea (adult) (pediatric) Other insomnia- Primary ROLANDO (obstructive sleep apnea) Obstructive sleep apnea (adult) (pediatric) COPD mixed type ([facility]/HCC) Tobacco dependence syndrome Tobacco use disorder BMI 37.0-37.9, adult Anxiety and depression [facility] [facility]) Restless leg syndrome Restless legs syndrome (RLS) Other insomnia- Primary Anxiety and depression ([facility]/HCC) Restless leg syndrome Restless legs syndrome (RLS) Acute non-recurrent maxillary sinusitis Right upper quadrant abdominal pain Other fatigue- Primary Morbid (severe) obesity due to excess calories ([facility]) Essential (primary) hypertension ([facility]) Unspecified essential hypertension Body mass index (BMI) 37.0-37.9, adult Chronic respiratory failure with hypoxia ([facility]) Type 2 diabetes mellitus with other specified complication Atherosclerosis of aorta (CMS/HCC) Atherosclerosis of aorta Mixed hyperlipidemia (CMS/HCC) Mixed hyperlipidemia Anxiety and depression ([facility]/HCC) Restless leg syndrome Restless legs syndrome (RLS) Primary hypertension ([facility]) Unspecified essential hypertension Type 2 diabetes mellitus without complication, without long-term current use of insulin Right upper quadrant abdominal pain COPD mixed type (CMS/HCC) Gastroesophageal reflux disease without esophagitis Esophageal reflux Anxiety and depression ([facility]/HCC)- Primary Mixed hyperlipidemia (CMS/HCC) Mixed hyperlipidemia Restless leg syndrome Restless legs syndrome (RLS) Primary hypertension ([facility]) Unspecified essential hypertension Type 2 diabetes mellitus without complication, without long-term current use of insulin Other insomnia Rash- Primary Rash and other nonspecific skin eruption Essential (primary) hypertension ([facility]) Unspecified essential hypertension Edema of both lower extremities Class 2 severe obesity due to excess calories with serious comorbidity and body mass index (BMI) of37.0 to 37.9 in adult ([facility]) ROLANDO (obstructive sleep apnea) Obstructive sleep apnea (adult) (pediatric) Type 2 diabetes mellitus without complication, without long-term current use of insulin Gastroenteritis Other and unspecified noninfectious gastroenteritis and colitis Iron deficiency anemia, unspecified iron deficiency anemia type Weight loss, unintentional- Primary Loss of weight Chronic respiratory failure with hypoxia ([facility]) Morbid (severe) obesity due to excess calories ([facility]) Essential (primary) hypertension ([facility]) Unspecified essential hypertension Class 2 severe obesity due to excess calories with serious comorbidity and body mass index (BMI) of37.0 to 37.9 in adult ([facility]) Rash Rash and other nonspecific skin eruption Tobacco dependence syndrome Tobacco use disorder Anxiety and depression ([facility]) Mixed hyperlipidemia ([facility]) Mixed hyperlipidemia Iron deficiency anemia, unspecified iron deficiency anemia type Restless leg syndrome Restless legs syndrome (RLS) Primary hypertension ([facility]) Unspecified essential hypertension Gastroesophageal reflux disease without esophagitis Esophageal reflux Type 2 diabetes mellitus without complication, without long-term current use of insulin Edema of both lower extremities Nausea and vomiting, unspecified vomiting type Diarrhea, unspecified type Irritable bowel syndrome with diarrhea- Primary Irritable bowel syndrome Centrilobular emphysema ([facility]) Chronic respiratory failure with hypoxia ([facility]) Essential (primary) hypertension ([facility]) Unspecified essential hypertension Gastroesophageal reflux disease without esophagitis Esophageal reflux Class 2 severe obesity due to excess calories with serious comorbidity and body mass index (BMI) of37.0 to 37.9 in adult ([facility]) Occult blood positive stool Nonspecific abnormal finding in stool contents Tobacco dependence syndrome Tobacco use disorder Anxiety and depression ([facility]) Encounter for wellness examination in adult- Primary Essential (primary) hypertension ([facility]) Unspecified essential hypertension Gastroesophageal reflux disease without esophagitis Esophageal reflux Type 2 diabetes mellitus without complication, without long-term current use of insulin Iron deficiency anemia, unspecified iron deficiency anemia type Anxiety and depression ([facility]) Mixed hyperlipidemia (CMS/HCC) Mixed hyperlipidemia Edema of both lower extremities Restless leg syndrome Restless legs syndrome (RLS) Primary hypertension (CMS/HCC) Unspecified essential hypertension Other insomnia COPD exacerbation ([facility]/HCC) Obstructive chronic bronchitis with exacerbation documented in this encounter [facility] HealthcareEvaluation note* Diagnosis Anxiety and depression (CMS/HCC)- Primary Other insomnia Class 2 severe obesity due to excess calories with serious comorbidity and body mass index (BMI) of37.0 to 37.9 in adult (CMS/HCC) Type 2 [...] 37.0-37.9, adult Chronic respiratory failure with hypoxia ([facility]) Type 2 diabetes mellitus with other [...] serious comorbidity and body mass index (BMI) of37.0 to 37.9 in adult ([facility]) ROLANDO (obstructive sleep apnea) Obstructive sleep apnea (adult) (pediatric) Type 2 diabetes mellitus without complication, without long-term current use of insulin Gastroenteritis Other and unspecified noninfectious gastroenteritis and colitis Iron deficiency anemia, unspecified iron deficiency anemia type Weight loss, unintentional- Primary Loss of weight Chronic respiratory failure with hypoxia ([facility]) Morbid (severe) obesity due to excess calories ([facility]) Essential (primary) hypertension ([facility]) Unspecified essential hypertension Class 2 severe obesity due to excess calories with serious comorbidity and body mass index (BMI) of37.0 to 37.9 in adult ([facility]) Rash Rash and other nonspecific skin eruption Tobacco dependence syndrome Tobacco use disorder Anxiety and depression ([facility]) Mixed hyperlipidemia ([facility]) Mixed hyperlipidemia Iron deficiency anemia, unspecified iron deficiency anemia type Restless leg syndrome Restless legs syndrome (RLS) Primary hypertension ([facility]) Unspecified essential hypertension Gastroesophageal reflux disease without esophagitis Esophageal reflux Type 2 diabetes mellitus without complication, without long-term current use of insulin Edema of both lower extremities Nausea and vomiting, unspecified vomiting type Diarrhea, unspecified type Irritable bowel syndrome with diarrhea- Primary Irritable bowel syndrome Centrilobular emphysema ([facility]) Chronic respiratory failure with hypoxia ([facility]) Essential (primary) hypertension ([facility]) Unspecified essential hypertension Gastroesophageal reflux disease without esophagitis Esophageal reflux Class 2 severe obesity due to excess calories with serious comorbidity and body mass index (BMI) of37.0 to 37.9 in adult ([facility]) Occult blood positive stool Nonspecific abnormal finding in stool contents Tobacco dependence syndrome Tobacco use disorder Anxiety and depression ([facility]) Encounter for wellness examination in adult- Primary Essential (primary) hypertension ([facility]) Unspecified essential hypertension Gastroesophageal reflux disease without esophagitis Esophageal reflux Type 2 diabetes mellitus without complication, without long-term current use of insulin Iron deficiency anemia, unspecified iron deficiency anemia type Anxiety and depression ([facility]) Mixed hyperlipidemia ([facility]) Mixed hyperlipidemia Edema of both lower extremities Restless leg syndrome Restless legs syndrome (RLS) Primary hypertension ([facility]) Unspecified essential hypertension Other insomnia COPD exacerbation ([facility]) Obstructive chronic bronchitis with exacerbation Osteopenia after menopause- Primary documented in this encounter [facility] HealthcareEvaluation note* Diagnosis Anxiety and depression ([facility])- Primary Other insomnia Class 2 severe obesity due to excess calories with serious comorbidity and body mass index (BMI) of37.0 to 37.9 in adult ([facility]) Type 2 diabetes mellitus without complication, without long-term current use of insulin ROALNDO (obstructive sleep apnea) Obstructive sleep apnea (adult) (pediatric) Other insomnia- Primary ROLANDO (obstructive sleep apnea) Obstructive sleep apnea (adult) (pediatric) COPD mixed type ([facility]/HCC) Tobacco dependence syndrome Tobacco use disorder BMI 37.0-37.9, adult Anxiety and depression ([facility]) Restless leg syndrome Restless legs syndrome (RLS) Other insomnia- Primary Anxiety and depression ([facility]) Restless leg syndrome Restless legs syndrome (RLS) Acute non-recurrent maxillary sinusitis Right upper quadrant abdominal pain Other fatigue- Primary Morbid (severe) obesity due to excess calories ([facility]) Essential (primary) hypertension ([facility]) Unspecified essential hypertension Body mass index (BMI) 37.0-37.9, adult Chronic respiratory failure with hypoxia ([facility]) Type 2 diabetes mellitus with other specified complication Atherosclerosis of aorta ([facility]) Atherosclerosis of aorta Mixed hyperlipidemia ([facility]) Mixed hyperlipidemia Anxiety and depression ([facility]) Restless leg syndrome Restless legs syndrome (RLS) Primary hypertension ([facility]) Unspecified essential hypertension Type 2 diabetes mellitus without complication, without long-term current use of insulin Right upper quadrant abdominal pain COPD mixed type ([facility]) Gastroesophageal reflux disease without esophagitis Esophageal reflux Anxiety and depression ([facility])- Primary Mixed hyperlipidemia ([facility]) Mixed hyperlipidemia Restless leg syndrome Restless legs syndrome (RLS) Primary hypertension ([facility]) Unspecified essential hypertension Type 2 diabetes mellitus without complication, without long-term current use of insulin Other insomnia Rash- Primary Rash and other nonspecific skin eruption Essential (primary) hypertension ([facility]) Unspecified essential hypertension Edema of both lower extremities Class 2 severe obesity due to excess calories with serious comorbidity and body mass index (BMI) of37.0 to 37.9 in adult ([facility]) ROLANDO (obstructive sleep apnea) Obstructive sleep apnea (adult) (pediatric) Type 2 diabetes mellitus without complication, without long-term current use of insulin Gastroenteritis Other and unspecified noninfectious gastroenteritis and colitis Iron deficiency anemia, unspecified iron deficiency anemia type Weight loss, unintentional- Primary Loss of weight Chronic respiratory failure with hypoxia ([facility]) Morbid (severe) obesity due to excess calories ([facility]) Essential (primary) hypertension ([facility]) Unspecified essential hypertension Class 2 severe obesity due to excess calories with serious comorbidity and body mass index (BMI) of37.0 to 37.9 in adult ([facility]) Rash Rash and other nonspecific skin eruption Tobacco dependence syndrome Tobacco use disorder Anxiety and depression ([facility]) Mixed hyperlipidemia ([facility]) Mixed hyperlipidemia Iron deficiency anemia, unspecified iron deficiency anemia type Restless leg syndrome Restless legs syndrome (RLS) Primary hypertension ([facility]) Unspecified essential hypertension Gastroesophageal reflux disease without esophagitis Esophageal reflux Type 2 diabetes mellitus without complication, without long-term current use of insulin Edema of both lower extremities Nausea and vomiting, unspecified vomiting type Diarrhea, unspecified type Irritable bowel syndrome with diarrhea- Primary Irritable bowel syndrome Centrilobular emphysema ([facility]) Chronic respiratory failure with hypoxia ([facility]) Essential (primary) hypertension ([facility]) Unspecified essential hypertension Gastroesophageal reflux disease without esophagitis Esophageal reflux Class 2 severe obesity due to excess calories with serious comorbidity and body mass index (BMI) of37.0 to 37.9 in adult ([facility]) Occult blood positive stool Nonspecific abnormal finding in stool contents Tobacco dependence syndrome Tobacco use disorder Anxiety and depression ([facility]) Encounter for wellness examination in adult- Primary Essential (primary) hypertension ([facility]) Unspecified essential hypertension Gastroesophageal reflux disease without esophagitis Esophageal reflux Type 2 diabetes mellitus without complication, without long-term current use of insulin Iron deficiency anemia, unspecified iron deficiency anemia type Anxiety and depression ([facility]) Mixed hyperlipidemia ([facility]) Mixed hyperlipidemia Edema of both lower extremities Restless leg syndrome Restless legs syndrome (RLS) Primary hypertension ([facility]) Unspecified essential hypertension Other insomnia COPD exacerbation ([facility]) Obstructive chronic bronchitis with exacerbation Vitamin deficiency- Primary Unspecified vitamin deficiency documented in this encounter [facility] HealthcareEvaluation note* Diagnosis Anxiety and depression- Primary Other insomnia Class 2 severe obesity due to excess calories with serious comorbidity and body mass index (BMI) of37.0 to 37.9 in adult ([facility]) Type 2 diabetes mellitus without complication, without long-term current use of insulin ([facility]) ROLANDO (obstructive sleep apnea) Obstructive sleep apnea (adult) (pediatric) Other insomnia- Primary ROLANDO (obstructive sleep apnea) Obstructive sleep apnea (adult) (pediatric) COPD mixed type ([facility]) Tobacco dependence syndrome Tobacco use disorder BMI 37.0-37.9, adult Anxiety and depression Restless leg syndrome Restless legs syndrome (RLS) Other insomnia- Primary Anxiety and depression Restless leg syndrome Restless legs syndrome (RLS) Acute non-recurrent maxillary sinusitis Right upper quadrant abdominal pain Other fatigue- Primary Morbid (severe) obesity due to excess calories ([facility]) Essential (primary) hypertension Unspecified essential hypertension Body mass index (BMI) 37.0-37.9, adult Chronic respiratory failure with hypoxia ([facility]) Type 2 diabetes mellitus with other specified complication ([facility]) Atherosclerosis of aorta Mixed hyperlipidemia Mixed hyperlipidemia Anxiety and depression Restless leg syndrome Restless legs syndrome (RLS) Primary hypertension Unspecified essential hypertension Type 2 diabetes mellitus without complication, without long-term current use of insulin ([facility]) Right upper quadrant abdominal pain COPD mixed type ([facility]) Gastroesophageal reflux disease without esophagitis Esophageal reflux Anxiety and depression- Primary Mixed hyperlipidemia Mixed hyperlipidemia Restless leg syndrome Restless legs syndrome (RLS) Primary hypertension Unspecified essential hypertension Type 2 diabetes mellitus without complication, without long-term current use of insulin ([facility]) Other insomnia Rash- Primary Rash and other nonspecific skin eruption Essential (primary) hypertension Unspecified essential hypertension Edema of both lower extremities Class 2 severe obesity due to excess calories with serious comorbidity and body mass index (BMI) of37.0 to 37.9 in adult ([facility]) ROLANDO (obstructive sleep apnea) Obstructive sleep apnea (adult) (pediatric) Type 2 diabetes mellitus without complication, without long-term current use of insulin ([facility]) Gastroenteritis Other and unspecified noninfectious gastroenteritis and colitis Iron deficiency anemia, unspecified iron deficiency anemia type Weight loss, unintentional- Primary Loss of weight Chronic respiratory failure with hypoxia ([facility]) Morbid (severe) obesity due to excess calories ([facility]) Essential (primary) hypertension Unspecified essential hypertension Class 2 severe obesity due to excess calories with serious comorbidity and body mass index (BMI) of37.0 to 37.9 in adult ([facility]) Rash Rash and other nonspecific skin eruption Tobacco dependence syndrome Tobacco use disorder Anxiety and depression Mixed hyperlipidemia Mixed hyperlipidemia Iron deficiency anemia, unspecified iron deficiency anemia type Restless leg syndrome Restless legs syndrome (RLS) Primary hypertension Unspecified essential hypertension Gastroesophageal reflux disease without esophagitis Esophageal reflux Type 2 diabetes mellitus without complication, without long-term current use of insulin ([facility]) Edema of both lower extremities Nausea and vomiting, unspecified vomiting type Diarrhea, unspecified type Irritable bowel syndrome with diarrhea- Primary Irritable bowel syndrome Centrilobular emphysema ([facility]) Chronic respiratory failure with hypoxia ([facility]) Essential (primary) hypertension Unspecified essential hypertension Gastroesophageal reflux disease without esophagitis Esophageal reflux Class 2 severe obesity due to excess calories with serious comorbidity and body mass index (BMI) of37.0 to 37.9 in adult ([facility]) Occult blood positive stool Nonspecific abnormal finding in stool contents Tobacco dependence syndrome Tobacco use disorder Anxiety and depression Encounter for wellness examination in adult- Primary Essential (primary) hypertension Unspecified essential hypertension Gastroesophageal reflux disease without esophagitis Esophageal reflux Type 2 diabetes mellitus without complication, without long-term current use of insulin ([facility]) Iron deficiency anemia, unspecified iron deficiency anemia type Anxiety and depression Mixed hyperlipidemia Mixed hyperlipidemia Edema of both lower extremities Restless leg syndrome Restless legs syndrome (RLS) Primary hypertension Unspecified essential hypertension Other insomnia COPD exacerbation ([facility]) Obstructive chronic bronchitis with exacerbation Anxiety and depression Restless leg syndrome Restless legs syndrome (RLS) Other insomnia documented in this encounter [facility] HealthcareEvaluation note* Diagnosis Anxiety and depression- Primary Other insomnia Class 2 severe obesity due to excess calories with serious comorbidity and body mass index (BMI) of37.0 to 37.9 in adult ([facility]) Type 2 diabetes mellitus without complication, without long-term current use of insulin ([facility]) ROLANDO (obstructive sleep apnea) Obstructive sleep apnea (adult) (pediatric) Other insomnia- Primary ROLANDO (obstructive sleep apnea) Obstructive sleep apnea (adult) (pediatric) COPD mixed type ([facility]) Tobacco dependence syndrome Tobacco use disorder BMI 37.0-37.9, adult Anxiety and depression Restless leg syndrome Restless legs syndrome (RLS) Other insomnia- Primary Anxiety and depression Restless leg syndrome Restless legs syndrome (RLS) Acute non-recurrent maxillary sinusitis Right upper quadrant abdominal pain Other fatigue- Primary Morbid (severe) obesity due to excess calories ([facility]) Essential (primary) hypertension Unspecified essential hypertension Body mass index (BMI) 37.0-37.9, adult Chronic respiratory failure with hypoxia ([facility]) Type 2 diabetes mellitus with other specified complication ([facility]) Atherosclerosis of aorta Mixed hyperlipidemia Mixed hyperlipidemia Anxiety and depression Restless leg syndrome Restless legs syndrome (RLS) Primary hypertension Unspecified essential hypertension Type 2 diabetes mellitus without complication, without long-term current use of insulin ([facility]) Right upper quadrant abdominal pain COPD mixed type ([facility]) Gastroesophageal reflux disease without esophagitis Esophageal reflux Anxiety and depression- Primary Mixed hyperlipidemia Mixed hyperlipidemia Restless leg syndrome Restless legs syndrome (RLS) Primary hypertension Unspecified essential hypertension Type 2 diabetes mellitus without complication, without long-term current use of insulin ([facility]) Other insomnia Rash- Primary Rash and other nonspecific skin eruption Essential (primary) hypertension Unspecified essential hypertension Edema of both lower extremities Class 2 severe obesity due to excess calories with serious comorbidity and body mass index (BMI) of37.0 to 37.9 in adult ([facility]) ROLANDO (obstructive sleep apnea) Obstructive sleep apnea (adult) (pediatric) Type 2 diabetes mellitus without complication, without long-term current use of insulin ([facility]) Gastroenteritis Other and unspecified noninfectious gastroenteritis and colitis Iron deficiency anemia, unspecified iron deficiency anemia type Weight loss, unintentional- Primary Loss of weight Chronic respiratory failure with hypoxia ([facility]) Morbid (severe) obesity due to excess calories ([facility]) Essential (primary) hypertension Unspecified essential hypertension Class 2 severe obesity due to excess calories with serious comorbidity and body mass index (BMI) of37.0 to 37.9 in adult ([facility]) Rash Rash and other nonspecific skin eruption Tobacco dependence syndrome Tobacco use disorder Anxiety and depression Mixed hyperlipidemia Mixed hyperlipidemia Iron deficiency anemia, unspecified iron deficiency anemia type Restless leg syndrome Restless legs syndrome (RLS) Primary hypertension Unspecified essential hypertension Gastroesophageal reflux disease without esophagitis Esophageal reflux Type 2 diabetes mellitus without complication, without long-term current use of insulin ([facility]) Edema of both lower extremities Nausea and vomiting, unspecified vomiting type Diarrhea, unspecified type Irritable bowel syndrome with diarrhea- Primary Irritable bowel syndrome Centrilobular emphysema ([facility]) Chronic respiratory failure with hypoxia ([facility]) Essential (primary) hypertension Unspecified essential hypertension Gastroesophageal reflux disease without esophagitis Esophageal reflux Class 2 severe obesity due to excess calories with serious comorbidity and body mass index (BMI) of37.0 to 37.9 in adult ([facility]) Occult blood positive stool Nonspecific abnormal finding in stool contents Tobacco dependence syndrome Tobacco use disorder Anxiety and depression Encounter for wellness examination in adult- Primary Essential (primary) hypertension Unspecified essential hypertension Gastroesophageal reflux disease without esophagitis Esophageal reflux Type 2 diabetes mellitus without complication, without long-term current use of insulin ([facility]) Iron deficiency anemia, unspecified iron deficiency [...] serious comorbidity and body mass index (BMI) of37.0 to 37.9 in adult ([facility]) Mixed hyperlipidemia Mixed hyperlipidemia Anxiety and depression Primary hypertension Unspecified essential hypertension documented in this encounter [facility] HealthcareEvaluation noteNo assessment information availableC[facility] Work Phone: Evaluation note* Diagnosis Anxiety and depression- Primary Other insomnia Class 2 severe obesity due to excess calories with serious comorbidity and body mass index (BMI) of37.0 to 37.9 in adult ([facility]) Type 2 diabetes mellitus without complication, without long-term current use of insulin ([facility]) ROLANDO (obstructive sleep apnea) Obstructive sleep apnea (adult) (pediatric) Other insomnia- Primary ROLANDO (obstructive sleep apnea) Obstructive sleep apnea (adult) (pediatric) COPD mixed type ([facility]) Tobacco dependence syndrome Tobacco use disorder BMI 37.0-37.9, adult Anxiety and depression Restless leg syndrome Restless legs syndrome (RLS) Other insomnia- Primary Anxiety and depression Restless leg syndrome Restless legs syndrome (RLS) Acute non-recurrent maxillary sinusitis Right upper quadrant abdominal pain Other fatigue- Primary Morbid (severe) obesity due to excess calories ([facility]) Essential (primary) hypertension Unspecified essential hypertension [...] long-term current use of insulin ([facility]) Other insomnia Rash- Primary Rash and other nonspecific skin eruption Essential (primary) hypertension Unspecified essential hypertension Edema of both lower extremities Class 2 severe obesity due to excess calories with serious comorbidity and body mass index (BMI) of37.0 to 37.9 in adult ([facility]) ROLANDO (obstructive sleep apnea) Obstructive sleep apnea (adult) (pediatric) Type 2 diabetes mellitus without complication, without long-term current use of insulin ([facility]) Gastroenteritis Other and unspecified noninfectious gastroenteritis and colitis Iron deficiency anemia, unspecified iron deficiency anemia type Weight loss, unintentional- Primary Loss of weight Chronic respiratory failure with hypoxia ([facility]) Morbid (severe) obesity due to excess calories ([facility]) Essential (primary) hypertension Unspecified essential hypertension Class 2 severe obesity due to excess calories with serious comorbidity and body mass index (BMI) of37.0 to 37.9 in adult ([facility]) Rash Rash and other nonspecific skin eruption Tobacco dependence syndrome Tobacco use disorder Anxiety and depression Mixed hyperlipidemia Mixed hyperlipidemia Iron deficiency anemia, unspecified iron deficiency anemia type Restless leg syndrome Restless legs syndrome (RLS) Primary hypertension Unspecified essential hypertension Gastroesophageal reflux disease without esophagitis Esophageal reflux Type 2 diabetes mellitus without complication, without long-term current use of insulin ([facility]) Edema of both lower extremities Nausea and vomiting, unspecified vomiting type Diarrhea, unspecified type Irritable bowel syndrome with diarrhea- Primary Irritable bowel syndrome Centrilobular emphysema ([facility]) Chronic respiratory failure with hypoxia ([facility]) Essential (primary) hypertension Unspecified essential hypertension Gastroesophageal reflux disease without esophagitis Esophageal reflux Class 2 severe obesity due to excess calories with serious comorbidity and body mass index (BMI) of37.0 to 37.9 in adult ([facility]) Occult blood positive stool Nonspecific abnormal finding in stool contents Tobacco dependence syndrome Tobacco use disorder Anxiety and depression Encounter for wellness examination in adult- Primary Essential (primary) hypertension Unspecified essential hypertension Gastroesophageal reflux disease without esophagitis Esophageal reflux Type 2 diabetes mellitus without complication, without long-term current use of insulin ([facility]) Iron deficiency anemia, unspecified iron deficiency anemia type Anxiety and depression Mixed hyperlipidemia Mixed hyperlipidemia Edema of both lower extremities Restless leg syndrome Restless legs syndrome (RLS) Primary hypertension Unspecified essential hypertension Other insomnia COPD exacerbation ([facility]) Obstructive chronic bronchitis with exacerbation Vomiting and [...] serious comorbidity and body mass index (BMI) of37.0 to 37.9 in adult ([facility]) Mixed hyperlipidemia Mixed hyperlipidemia Anxiety and depression Primary hypertension Unspecified essential hypertension Hypomagnesemia- Primary Disorders of magnesium metabolism LAINA (acute kidney injury) documented in this encounter [facility]* Diagnosis Anxiety and depression- Primary Other insomnia Class 2 severe obesity due to excess calories with serious comorbidity and body mass index (BMI) of37.0 to 37.9 in adult ([facility]) Type 2 diabetes mellitus without complication, without long-term current use of insulin ([facility]) ROLANDO (obstructive sleep apnea) Obstructive sleep apnea (adult) (pediatric) Other insomnia- Primary ROLANDO (obstructive sleep apnea) Obstructive sleep apnea (adult) (pediatric) COPD mixed type ([facility]) Tobacco dependence syndrome Tobacco use disorder BMI 37.0-37.9, adult Anxiety and depression Restless leg syndrome Restless legs syndrome (RLS) Other insomnia- Primary Anxiety and depression Restless leg syndrome Restless legs syndrome (RLS) Acute non-recurrent maxillary sinusitis Right upper quadrant abdominal pain Other fatigue- Primary Morbid (severe) obesity due to excess calories ([facility]) Essential (primary) hypertension Unspecified essential hypertension Body mass index (BMI) 37.0-37.9, adult Chronic respiratory failure with hypoxia ([facility]) Type 2 diabetes mellitus with other specified complication ([facility]) Atherosclerosis of aorta Mixed hyperlipidemia Mixed hyperlipidemia Anxiety and depression Restless leg syndrome Restless legs syndrome (RLS) Primary hypertension Unspecified essential hypertension Type 2 diabetes mellitus without complication, without long-term current use of insulin ([facility]) Right upper quadrant abdominal pain COPD mixed type ([facility]) Gastroesophageal reflux disease without esophagitis Esophageal reflux Anxiety and depression- Primary Mixed hyperlipidemia Mixed hyperlipidemia Restless leg syndrome Restless legs syndrome (RLS) Primary hypertension Unspecified essential hypertension Type 2 diabetes mellitus without complication, without long-term current use of insulin ([facility]) Other insomnia Rash- Primary Rash and other nonspecific skin eruption Essential (primary) hypertension Unspecified essential hypertension Edema of both lower extremities Class 2 severe obesity due to excess calories with serious comorbidity and body mass index (BMI) of37.0 to 37.9 in adult ([facility]) ROLANDO (obstructive sleep apnea) Obstructive sleep apnea (adult) (pediatric) Type 2 diabetes mellitus without complication, without long-term current use of insulin ([facility]) Gastroenteritis Other and unspecified noninfectious gastroenteritis and colitis Iron deficiency anemia, unspecified iron deficiency anemia type Weight loss, unintentional- Primary Loss of weight Chronic respiratory failure with hypoxia ([facility]) Morbid (severe) obesity due to excess calories ([facility]) Essential (primary) hypertension Unspecified essential hypertension Class 2 severe obesity due to excess calories with serious comorbidity and body mass index (BMI) of37.0 to 37.9 in adult ([facility]) Rash Rash and other nonspecific skin eruption Tobacco dependence syndrome Tobacco use disorder Anxiety and depression Mixed hyperlipidemia Mixed hyperlipidemia Iron deficiency anemia, unspecified iron deficiency anemia type Restless leg syndrome Restless legs syndrome (RLS) Primary hypertension Unspecified essential hypertension Gastroesophageal reflux disease without esophagitis Esophageal reflux Type 2 diabetes mellitus without complication, without long-term current use of insulin ([facility]) Edema of both lower extremities Nausea and vomiting, unspecified vomiting type Diarrhea, unspecified type Irritable bowel syndrome with diarrhea- Primary Irritable bowel syndrome Centrilobular emphysema ([facility]) Chronic respiratory failure with hypoxia ([facility]) Essential (primary) hypertension Unspecified essential hypertension Gastroesophageal reflux disease without esophagitis Esophageal reflux Class 2 severe obesity due to excess calories with serious comorbidity and body mass index (BMI) of37.0 to 37.9 in adult ([facility]) Occult blood positive stool Nonspecific abnormal finding in stool contents Tobacco dependence syndrome Tobacco use disorder Anxiety and depression Encounter for wellness examination in adult- Primary Essential (primary) hypertension Unspecified essential hypertension Gastroesophageal reflux disease without esophagitis Esophageal reflux Type 2 diabetes mellitus without complication, without long-term current use of insulin ([facility]) Iron deficiency anemia, unspecified iron deficiency anemia type Anxiety and depression Mixed hyperlipidemia Mixed hyperlipidemia Edema of both lower extremities Restless leg syndrome Restless legs syndrome (RLS) Primary hypertension Unspecified essential hypertension Other insomnia COPD exacerbation ([facility]) Obstructive chronic bronchitis with exacerbation Vomiting and [...] serious comorbidity and body mass index (BMI) of37.0 to 37.9 in adult ([facility]) Mixed hyperlipidemia Mixed hyperlipidemia Anxiety and depression Primary hypertension Unspecified essential hypertension Hypomagnesemia- Primary Disorders of magnesium metabolism LAINA (acute kidney injury) Hypomagnesemia Disorders of magnesium metabolism documented in this encounter [facility] HealthcareEvaluation note* Diagnosis Onset Date Resolution Status Admit Date Anxiety and depression acuteOctober 2024 8:52amClass 2 severe obesity due to excess calories with serious comorbidity in adultacuteOctober 2024 8:52amEssential hypertension acuteOctober 2024 8:52amGERD without esophagitisacuteOctober 2024 8:52amTobacco dependence syndromeacuteOctober 2024 8:52amType 2 diabetes mellitus without complication, without long-term current usacuteOctober 2024 8:52am [facility] Work Phone: Hospital course Narrative No data available for this section [facility] No data available for this section [facility] CenterProgress note No data available for this section [facility] CenterReason for referral (narrative)No reason for referral information availableC[facility] Work Phone: Reason for visit Narrative* Consultation (Routine) - ClosedSpecialtyDiagnoses / ProceduresReferred By ContactReferred To Contact Dermatology Diagnoses Rash Procedures MA OFFICE/OUTPATIENT NEW HIGH MDM 60 MINUTES Brea Jj, TOBIAS [address] [place] [address] Phone: tel: fax: Ladonna Bang, PROTEIN SPECIALIST-PEDIATRIC NEUROPSYCHOLOGIST [address] [place] [address] Phone: tel: fax: Referral IDStatusReasonStart DateExpiration DateVisits RequestedVisits [id number] Specialty Services Required / [facility] Healthcare Summary Purpose Family History No Family History Records Found Relationship Condition Age at Onset Recorded Date/T lester Not Specified Chronic obstructive pulmonary disease Un known fatherDeceasedUnknownmotherDeceasedUnknown Advance Directives No Advanced Directives Records Found Advance Directive Response Recorded Date/ Time Advance Directives No March 18 4:11pm Chief Complaint and Reason for Visit Chief Complaint Admit Date 3M August 28, 2025 8 :52am Reason for Visit Admit Date Anxiety and depression August 28 8:52am Class 2 severe obesity due t o excess calories with serious comorbidity in adult August 28, 2025 8:52am Essential hypertension August 28 8:52am GERD without esophagitis August 28 025 8:52am Tobacco dependence syndrome July 8:52am Type 2 diabetes mellitus wit hout complication, without long-term current us August 28, 2025 8:52am Chief Complaint Admit Date Unknown May 28, 2025 10:0 2am laina May 28, 2025 11:1 8pm Reason for Visit Admit Date LAINA (acute kidney injury) May 28 11:18pm Diarrhea May 28, 2025 11:1 8pm Nausea and vomiting May 28, 2025 11:1 8pm Additional Source Comments INFORMATION SOURCE (unrecogn ized section and content) DATE CREATED AUTHOR 06/22/2021 [facility] DATE CREATED AUTHOR AUTHOR'S ORGANIZ ATION 02/26/2023 [facility] DATE CREATED AUTHOR AUTHOR'S ORGANIZ ATION 07/17/2024 [facility] DATE CREATED AUTHOR AUTHOR'S ORGANIZ ATION 07/24/2024 [facility] DATE CREATED AUTHOR AUTHOR'S ORGANIZ ATION 04/01/2025 [facility] DATE CREATED AUTHOR AUTHOR'S ORGANIZ ATION 05/29/2025 [facility] DATE CREATED AUTHOR AUTHOR'S ORGANIZ ATION 09/07/2025 [facility] DATE CREATED AUTHOR AUTHOR'S ORGANIZ ATION 09/11/2025 [facility] Patient Care team informatio n (unrecognized section and content) Team MemberRelationshipSpecialtyStart DateEnd Date Jose M Light MD [address] [place] [address] PCP - Generalmi Ahsrhrde56/19/23 Brea Jj NP [address] [place] [address] [facility] Bdhcvfho14/19/23Team MemberRelationshipSpecialtyStart DateEnd Date Jose M Light MD [address] [place] [address] PCP - [facility]10/18/23 Brea Jj NP [address] [place] [address] [facility]10/18/23Team MemberRelationshipSpecialtyStart DateEnd Date Jose M Light MD [address] [place] [address] PCP - [facility]10/18/23 Brea Jj NP [address] [place] [address] Nurse Pract[facility]erMem[facility]10/18/23Team MemberRelationshipSpecialtyStart DateEnd Date Jose M Lihgt MD [address] [place] [address] PCP - [facility]10/18/23 Brea Jj NP [address] [place] [address] [facility]07/31/24 Brea Jj NP [address] [place] [address] Nurse Pract[facility]erMem[facility]10/18/23Team MemberRelationshipSpecialtyStart DateEnd Date Jose M Light MD [address] [place] [address] PCP - [facility]10/18/23 Brea Jj NP [address] [place] [address] [facility]07/31/24 Brea Jj NP [address] [place] [address] [facility] Pract[facility]er[facility]10/18/23Te MemberRelationshipSpecialtyStart DateEnd Date Jose M Light MD [address] [place] [address] PCP - [facility]10/18/23 Brea Jj NP [address] [place] [address] [facility]07/31/24 Brea Jj NP [address] [place] [address] Nurse Pract[facility]10/18/23Team MemberRelationshipSpecialtyStart DateEnd Date Jose M Light MD [address] [place] [address] [facility] - [facility]ly Afvqnvfb84/19/23 Brea Jj, LIGHTING ENGINEER [address] [place] [address] Nurse PractitionerM[facility] Hkgpkdva23/19/23Team MemberRelationshipSpecialtyStart DateEnd Date Jose M Light MD [address] [place] [address] PCP - [facility] Lhwijgzu54/19/23 Brea Jj, TOBIAS [address] [place] [address] Nurse PractitionerM[facility] Ygdbsrwg96/19/23Team MemberRelationshipSpecialtyStart DateEnd Date Jose M Light MD [address] [place] [address] PCP - [facility] Xxwffvth59/19/23 Brea Jj NP [address] [place] [address] Nurse PractitionerM[facility] Mnxkakki15/19/23Team MemberRelationshipSpecialtyStart DateEnd Date Jose M Light MD [address] [place] [address] [facility] Cvozgsgt30/19/23 Brea Jj NP [address] [place] [address] [facility]07/31/24 Brea Jj NP [address] [place] [address] Nurse Pract[facility]erMem[facility]10/18/23Team MemberRelationshipSpecialtyStart DateEnd Date Jose M Light MD [address] [place] [address] PCP - [facility]10/18/23 Brea Jj NP [address] [place] [address] [facility]07/31/24 Brea Jj NP [address] [place] [address] Nurse Pract[facility]erMem[facility]10/18/23Team MemberRelationshipSpecialtyStart DateEnd Date Jose M Light MD [address] [place] [address] PCP - [facility]10/18/23 Brea Jj NP [address] [place] [address] PCP [facility]07/31/24 Brea Jj NP [address] [place] [address] Nurse Pract[facility]erMem[facility]10/18/23Team MemberRelationshipSpecialtyStart DateEnd Date Jose M Light MD [address] [place] [address] PCP - [facility]10/18/23 Brea Jj NP [address] [place] [address] [facility]07/31/24 Brea Jj NP [address] [place] [address] Nurse Pract[facility]erMem[facility]10/18/23Te MemberRelationshipSpecialtyStart DateEnd Date Jose M Light MD [address] [place] [address] [facility]10/18/23 Brea Jj NP [address] [place] [address] [facility]07/31/24 Brea Jj NP [address] [place] [address] [facility] Pract[facility]erMem[facility]10/18/23Team MemberRelationshipSpecialtyStart DateEnd Date Jose M Light MD [address] [place] [address] PCP - [facility]10/18/23 Brea Jj NP [address] [place] [address] [facility]07/31/24 Brea Jj NP [address] [place] [address] Nurse Pract[facility]er[facility]10/18/23Team MemberRelationshipSpecialtyStart DateEnd Date Jose M Light MD [address] [place] [address] PCP - [facility]10/18/23 Brea Jj NP [address] [place] [address] [facility]07/31/24 Brea Jj NP [address] [place] [address] Nurse Pract[facility]erMem[facility]10/18/23Team MemberRelationshipSpecialtyStart DateEnd Date Jose M Light MD [address] [place] [address] PCP - [facility]10/18/23 Brea Jj NP [address] [place] [address] PCP - [facility]07/31/24 Brea Jj NP [address] [place] [address] Nurse Pract[facility]erMem[facility]10/18/23Team MemberRelationshipSpecialtyStart DateEnd Date Jose M Light MD [address] [place] [address] PCP - [facility]10/18/23 Brea Jj NP [address] [place] [address] [facility]07/31/24 Brea Jj NP [address] [place] [address] Nurse Pract[facility]erMem[facility]10/18/23Team MemberRelationshipSpecialtyStart DateEnd Date Jose M Light MD [address] [place] [address] PCP - [facility]10/18/23 Brea Jj NP [address] [place] [address] [facility]07/31/24 Brea Jj NP [address] [place] [address] Nurse Pract[facility]erMem[facility]10/18/23Team MemberRelationshipSpecialtyStart DateEnd Date Jose M Light MD [address] [place] [address] PCP - [facility]10/18/23 Brea Jj NP [address] [place] [address] [facility]07/31/24 Brea Jj NP [address] [place] [address] [facility] Pract[facility]erMem[facility]10/18/23Team MemberRelationshipSpecialtyStart DateEnd Date Jose M Light MD [address] [place] [address] PCP - [facility]10/18/23 Brea Jj NP [address] [place] [address] [facility]07/31/24 Brea Jj NP [address] [place] [address] Nurse PractitionerMem[facility]10/18/23Team MemberRelationshipSpecialtyStart DateEnd Date Jose M Light MD [address] [place] [address] PCP - [facility]10/18/23 Brea Jj NP [address] [place] [address] [facility]07/31/24 Brea Jj NP [address] [place] [address] Nurse PractitionerMem[facility]10/18/23Team MemberRelationshipSpecialtyStart DateEnd Date Jose M Light MD [address] [place] [address] [facility]10/18/23 Brea Jj NP [address] [place] [address] [facility]07/31/24 Brea Jj NP [address] [place] [address] [facility] Pract[facility]erMem[facility]10/18/23Team MemberRelationshipSpecialtyStart DateEnd Date Jose M Light MD [address] [place] [address] PCP - [facility]10/18/23 Brea Jj NP [address] [place] [address] [facility]07/31/24 Brea Jj NP [address] [place] [address] Nurse PractitionerMem[facility]10/18/23Te MemberRelationshipSpecialtyStart DateEnd Date Jose M Light MD [address] [place] [address] [facility] - [facility]10/18/23 Brea Jj, TOBIAS [address] [place] [address] [facility]07/31/24 Brea Jj NP [address] [place] [address] [facility] PractitionerMem[facility]10/18/23Te MemberRelationshipSpecialtyStart DateEnd Date Jose M Light MD [address] [place] [address] [facility]10/18/23 Brea Jj NP [address] [place] [address] [facility]07/31/24 Brea Jj NP [address] [place] [address] Nurse PractitionerMem[facility]10/18/23Te MemberRelationshipSpecialtyStart DateEnd Date Jose M Light MD [address] [place] [address] PCP - [facility]10/18/23 Brea Jj NP [address] [place] [address] [facility]07/31/24 Brea Jj NP [address] [place] [address] Nurse PractitionerMem[facility]10/18/23Team MemberRelationshipSpecialtyStart DateEnd Date Jose M Light MD [address] [place] [address] PCP - [facility]10/18/23 Brea Jj NP [address] [place] [address] [facility]07/31/24 Brea Jj NP [address] [place] [address] Nurse Pract[facility]erMem[facility]10/18/23Team MemberRelationshipSpecialtyStart DateEnd Date Jose M Light MD [address] [place] [address] PCP - [facility]10/18/23 Brea Jj NP [address] [place] [address] [place] [address] Brea Jj NP [address] [place] [address] Nurse Pract[facility]erMem[facility]10/18/23Team MemberRelationshipSpecialtyStart DateEnd Date Jose M Light MD [address] [place] [address] PCP - [facility]10/18/23 Brea Jj NP [address] [place] [address] [facility]07/31/24 Brea Jj NP [address] [place] [address] Nurse Pract[facility]er[facility]10/18/23Te MemberRelationshipSpecialtyStart DateEnd Date Jose M Light MD [address] [place] [address] [facility] - [facility]10/18/23 Brea Jj NP [address] [place] [address] PCP [facility]07/31/24 Brea Jj NP [address] [place] [address] Nurse Pract[facility]10/18/23Team MemberRelationshipSpecialtyStart DateEnd Date Jose M Light MD [address] [place] [address] PCP - [facility]10/18/23 Brea Jj NP [address] [place] [address] PCP [facility]07/31/24 Brea Jj NP [address] [place] [address] [facility]10/18/23 Team Status: Active Member Role Status Dates Brea Jj Primary Care Provider Active Team Status: Inactive Member Role Status Dates Brea Jj Attending Provider Active Start: May 28, 2025 End: May 28, 2025 Team Status: Active Member Role Status Dates Marshall Mckeon MD Admit Provider Active Start: ly 2024 Oz Iqbal ProviderActiveStart: May 28, 2025 Brea JjPrimary Care ProviderActiveStart: May 28, 2025 Team Status: Inactive Member Role Status Dates Marshall Mckeon MD Admit Provider Active Start: 2024 End: May 29Oz Akins ProviderActiveStart: May 28, 2025 End: May 29, 2025Brea JjPrimary Care ProviderActiveStart: May 28, 2025 End: May 29, 2025Team MemberRelationshipSpecialtyStart DateEnd Date Jose M Light MD [address] [place] [phone] PCP - [facility]10/18/23 Brea Jj NP [address] [place] [address] [facility] - [facility]07/31/24 Brea Jj NP [address] [place] [address] Nurse Pract[facility]10/18/23Team MemberRelationshipSpecialtyStart DateEnd Date Jose M Light MD [address] [place] [address] PCP - [facility]10/18/23 Brea Jj NP [address] [place] [address] [facility] - [facility]07/31/24 Brea Jj NP [address] [place] [address] Nurse Pract[facility]10/18/23Team MemberRelationshipSpecialtyStart DateEnd Date Jose M Light MD [address] [place] [address] PCP - [facility]10/18/23 Brea Jj NP [address] [place] [address] PCP [place] [address] Brea Jj NP [address] [place] [address] [facility] Edsustea64/19/23Team MemberRelationshipSpecialtyStart DateEnd Date Jose M Light MD [address] [place] [address] PCP - [facility]10/18/23 Brea Jj NP [address] [place] [address] [facility]07/31/24 Brea Jj NP [address] [place] [address] Nurse [facility]10/18/23Te MemberRelationshipSpecialtyStart DateEnd Date Jose M Light MD [address] [place] [address] PCP - [facility]10/18/23 Brea Jj NP [address] [place] [address] [facility]07/31/24 Brea Jj NP [address] [place] [address] Nurse Pract[facility]10/18/23Te MemberRelationshipSpecialtyStart DateEnd Date Jose M Light MD [address] [place] [address] [facility]10/18/23 Brea Jj NP [address] [place] [address] [facility]07/31/24 Brea Jj NP [address] [place] [address] Nurse Pract[facility]er[facility]10/18/23Team MemberRelationshipSpecialtyStart DateEnd Date Jose M Light MD [address] [place] [address] [facility]10/18/23 Brea Jj NP [address] [place] [address] [facility]07/31/24 Brea Jj NP Nurse Pract[facility]er[facility]10/18/23 Team Status: Active Member Role/Relationship Status Dates Bera Jj NP-C Primary Care Provider Active Team Status: Active Member Role/Relationship Status Dates Brea Jj NP-C Primary Care Provider Active Start: July 10, 2025 Sheldon Mckee DOChinyere ProviderActiveStart: July 10, 2025 Team Status: Active Member Role/Relationship Status Dates Brea Jj NP-Val Primary Care Provider Active Start: July 17, 2025 Mary Ramirez ProviderActiveStart: July 17, 2025 Team Status: Inactive Member Role/Relationship Status Dates Brea Jj NP-C Primary Care Provider Active Start: August 28, 2025 End: August 28, 2025Mary Ramirez ProviderActiveStart: August 28, 2025 End: August 28, 2025Team MemberRelationshipSpecialtyStart DateEnd Date Jose M Light MD [facility]CP - [facility]10/18/23 Brea Jj NP [address] [place] [address] PCP - [facility]07/31/24 Brea Jj NP Nurse Pract[facility]erM[facility] Xumtmvbx66/19/23 Tram Crooks, [facility] [address] [place] [address] Social WorkerSpremier health [facility] Services Diana Stephen, [facility] [address] [place] [address] Social WorkerMartha'[facility] Medicine Team Status: Inactive Member Role/Relationship Status Dates Brea Jj NP-C Primary Care Provider Active Start: August 28, 2025 End: August 28, 2025Brea Jj NP-Diamond ProviderActiveStart: August 28, 2025 End: August 28, 2025 Reason for Visit (unrecogniz ed section and content) ReasonCommentsMed RefillReasonOnset DateCommentsMed [id number] CommentsRashReasonCommentsRashReasonCommentsFollow-upReasonCommentsDiabetes Goals (unrecognized section and content) Goals may be documented in a n alternate section FOR RECORDS PERTAINING TO PATIENTS WHO ARE [...] BE BASED ON THE PRIMARY CLINICAL RECORDS. [facility]. provides no warranty or guarantee of the accuracy or completeness of information in this document.
[2025-10-29 13:17] LABS: Anion Gap 10.5; Blood Urea Nitrogen 19.0 mg/dL (7.0-18.0); Calcium 10.0 mg/dL (8.5-10.1); Carbon Dioxide 34.1 mmol/L (21.0-32.0); Chloride 100 mmol/L (98-107); Estimated GFR (African America >60 (>=60 mL/min/1.73m^2); Estimated GFR (Non-African Ame 57 (>=60 mL/min/1.73m^2); Glucose 120 mg/dL (74-106); Magnesium 1.3 mg/dL (1.8-2.4); Potassium 3.6 mmol/L (3.5-5.1); Sodium 141 mmol/L (136-145)
== END 2025-10-29 12:48 | disposition home or self-care (01) ==
LOC: LAB 12:50
PROVIDERS: PCP Nurse Practitioner; Visit Provider Nurse Practitioner
DX: E83.42 Hypomagnesemia (principal); I10 Essential (primary) hypertension
CPT/HCPCS: 36415; 80048; 83735